=== PATIENT | male | born 1970 | race Caucasian/White ===

== ENCOUNTER → 2019-01-17 16:43 | Outpatient (CLI) | payer OTHER, SELFPAY ==
[2016-12-11 10:56] VITALS: BMI 32.2
[2018-11-22 15:34] VITALS: BMI 34.0
[2019-01-17 17:34] LABS: Absolute Lymphocyte Count 3.01 X10^3/ul (0.83-4.51); Absolute Neutrophil Count 6.3 X10^3/uL (2.0-7.7); Basophil# 0.04 X10^3/uL; Basophil% 0.4 % (0-1); Eosinophil# 0.12 X10^3/uL; Eosinophils% 1.1 % (0-5); Hemoglobin 14.7 g/dl (13.0-16.5); Lymphocyte # 3.01 X10^3/ul (4.0); Lymphocyte % 28.8 % (19-41); Mean Corp Hgb Conc 33.4 g/gl (32-36); Mean Corpuscular Hgb 30.2 pg (27.0-32.0); Mean Corpuscular Volume 90.5 fL (80-94); Mean Platelet Vol. 10.6 fl (6.2-12.0); Monocyte# 0.92 X10^3/uL; Monocyte% 8.8 % (0-10); Neutrophil # 6.33 X10^3/uL (2.7-7.7); Neutrophil % 60.5 % (47-70); Platelet Count 255 K/mm3 (150-450); RBC Distribution Width CV 13.9 % (11.6-14.6); RBC Distribution Width SD 45.6 fl (35.1-43.9); Red Blood Count 4.86 M/mm3 (4.6-6.2); White Blood Count 10.5 K/mm3 (4.4-11.0)
[2019-01-17 17:37] LABS: POSITIVE DIFFERENTIAL NO
[2019-01-17 17:38] LABS: POSITIVE COUNT NO; POSITIVE MORPHOLOGY NO
[2019-01-17 17:46] LABS: Hemoglobin A1c 6.7 % (4.2-6.3)
[2019-01-17 18:15] LABS: Vitamin B12 428 pg/mL (211-911); Vitamin D,25 Hydroxy 9.2 ng/mL (29.95-100.01)
[2019-01-17 20:17] LABS: ALB/GLOB Ratio 1.3 RATIO (0.9-2.4); AST(SGOT) 15 U/L (15-37); Alanine Aminotransfer ALT/SGPT 33 U/L (16-61); Albumin, Serum 4.1 g/dL (3.2-5.0); Alkaline Phosphatase 97 U/L (45-117); Anion Gap 13 (5-15); BUN 21 mg/dL (7-18); Calcium,Total 9.1 mg/dL (8.5-10.1); Chloride 108 mmol/L (98-107); Cholesterol 147 mg/dL (200); Creatinine, Serum 0.84 mg/dL (0.70-1.30); EST Glomerular Filtration Rate 104 mL/min (>60); Est Glom Filt Rate - Afr Amer 126 mL/min (>60); Globulin 3.2 g/dL (2.2-4.2); Glucose 94 mg/dL (74-106); High Density Lipoprotein 37 mg/dL; Protein, Total 7.3 g/dL (6.4-8.2); Sodium Level 146 mmol/L (136-145); Thyroid Stim Hormone (TSH) 2.37 uIU/mL (0.358-3.74); Triglycerides 121 mg/dL; Very Low Density Lipoprotein 24 mg/dL (5-40)
== END ==
PROVIDERS: Family Provider Family Medicine; PCP Family Medicine; Referring Provider Family Medicine; Visit Provider Family Medicine
DX: R53.83 Other fatigue (principal); R35.8 Other polyuria; E78.5 Hyperlipidemia, unspecified
CPT/HCPCS: 36415; 80053; 80061; 82306; 82607; 83036; 84443; 85025

== ENCOUNTER → 2019-02-20 16:47 | Outpatient (CLI) | payer OTHER, SELFPAY ==
[2016-12-11 10:56] VITALS: BMI 32.2
[2019-02-20 16:03] VITALS: BMI 34.0
== END ==
PROVIDERS: Family Provider Family Medicine; PCP Family Medicine; Referring Provider Nurse Practitioner Family; Visit Provider Nurse Practitioner Family
DX: I25.10 Atherosclerotic heart disease of native coronary artery without angina pectoris (principal); R07.9 Chest pain, unspecified; Z72.0 Tobacco use
CPT/HCPCS: 36415; 84484

== ENCOUNTER 2019-02-20 19:03 | Observation (INO) | payer OTHER, SELFPAY ==
[2016-12-11 10:56] VITALS: BMI 32.2
[2019-02-20 16:03] VITALS: BMI 34.0
[2019-02-20 19:03] VITALS: BP 205/115; PULSE 91; RESP 18; TEMP 36.8; O2SAT 95; BMI 35.6
--- NOTE | 2019-02-20 19:29 | EKG12_ITS ---
Test Reason : CP Blood Pressure : / mmHG Vent. Rate : 090 BPM Atrial Rate : 090 BPM P-R Int : 188 ms QRS Dur : 108 ms QT Int : 378 ms P-R-T Axes : 056 -04 032 degrees QTc Int : 462 ms Normal sinus rhythm Possible Left atrial enlargement Cannot rule out Anterior infarct , age undetermined Abnormal ECG Confirmed by BIRGIT EVANGELISTA, GENE ([id number]), editor & co founder EVELIO CURRY ([id number]) on 02/24/2019 11:10:36 AM Referred By: Hesham Canchola Confirmed By:GENE GENAO MD
[2019-02-20 19:30] VITALS: O2SAT 95
--- NOTE | 2019-02-20 19:35 | RAD_ITS ---
STUDY: X-RAY CHEST REASON FOR EXAM: Male, 48 years old. Chest pain. TECHNIQUE: Single frontal view of the chest. COMPARISON: July 03, 2015 FINDINGS: The lungs are clear and expanded. There is no demonstrated pleural abnormality. Normal size heart. Normal mediastinum and soniya. Normal visualized pulmonary arteries. Normal visualized aortic arch and descending thoracic aorta. Normal visualized thoracic spine. Normal visualized ribs, clavicles, and shoulders. There are postsurgical changes of the lower cervical spine. There is no demonstrated abnormality of the visualized soft tissue structures of the upper abdomen. RAD/Chest 1 View (Portable) IMPRESSION: No acute cardiopulmonary process. Electronically Signed: Racquel Combs MD at 20:05 EDT Tel , Service support ,
[2019-02-20 19:47] LABS: Absolute Lymphocyte Count 3.43 X10^3/ul (0.83-4.51); Absolute Neutrophil Count 5.1 X10^3/uL (2.0-7.7); Basophil# 0.04 X10^3/uL; Basophil% 0.4 % (0-1); Eosinophil# 0.22 X10^3/uL; Eosinophils% 2.3 % (0-5); Hematocrit 44.2 % (40-54); Hemoglobin 15.1 g/dl (13.0-16.5); Lymphocyte # 3.43 X10^3/ul (4.0); Lymphocyte % 35.6 % (19-41); Mean Corp Hgb Conc 34.2 g/gl (32-36); Mean Corpuscular Hgb 30.1 pg (27.0-32.0); Mean Platelet Vol. 10.2 fl (6.2-12.0); Monocyte# 0.81 X10^3/uL; Monocyte% 8.4 % (0-10); Neutrophil # 5.11 X10^3/uL (2.7-7.7); POSITIVE COUNT NO; POSITIVE DIFFERENTIAL NO; POSITIVE MORPHOLOGY NO; Platelet Count 235 K/mm3 (150-450); RBC Distribution Width CV 13.3 % (11.6-14.6); RBC Distribution Width SD 42.5 fl (35.1-43.9); Red Blood Count 5.02 M/mm3 (4.6-6.2); White Blood Count 9.6 K/mm3 (4.4-11.0)
[2019-02-20 19:50] LABS: Anion Gap 5 (5-15); BUN 14 mg/dL (7-18); BUN/Creat Ratio 15.3 RATIO (10-20); Calcium,Total 8.8 mg/dL (8.5-10.1); Chloride 104 mmol/L (98-107); Creatinine, Serum 0.92 mg/dL (0.70-1.30); EST Glomerular Filtration Rate 94 mL/min (>60); Est Glom Filt Rate - Afr Amer 114 mL/min (>60); Estimated Creatinine Clearance 96.03 ml/min; Glucose 131 mg/dL (74-106); Potassium 3.3 mmol/L (3.5-5.1); Sodium Level 140 mmol/L (136-145)
[2019-02-20] MEDS: Aspirin 81 MG TAB.CHEW 324 MG PO (19:55)
--- NOTE | 2019-02-20 20:00 | ED.DCSUM_ITS ---
- ER Visit Summary Date of Service: 02/20/19 Chief Complaint: Chest pain History of Present Illness: The patient is a 48 M with chest pain intermittently over 2 months. The patient has a history of coronary disease and follows with Dr. Flores. Symptoms are worse with walking and better with rest. Associated with some shortness of breath but no other symptoms. He is a smoker. Physical Examination: Afebrile. Blood pressure 205/115. Otherwise vitals unremarkable. Heart regular. Lungs clear. Abdomen soft. Skin appears normal. Extremities nontender with no edema. Test Results: EKG showed sinus rhythm at a rate of 90. Laboratory studies and chest x-ray are pending. Emergency Department Course and Treatment: Patient placed on a monitor and treated with aspirin while awaiting results. He will likely need admission. Patient's pressure improved to 177 systolic. His EKG showed sinus rhythm at a rate of 90. Chest x-ray showed no acute process. CBC normal. Potassium 3.3 and glucose 131. Troponin stable over the past 2 and half hours, 0.063. Patient's blood pressure increased again. He was treated with labetalol. He was pain-free. I spoke with the hospitalist to admit for chest pain and hyperte nsion. I also spoke with cardiology, Dr. Rocha. He advised a repeat EKG in the morning. Cycle enzymes tonight. A dose of Lovenox tonight. N.p.o. overnight in case his central supply manager wants to cath him tomorrow. Patient is stable and will be admitted. Treatment Plan: As above Disposition: Admission Impression: 1. Chest pain 2. Hypertension This note was generated with [employer] dictation software. It may contain incorrect words, spelling, and punctuation that were not noted in review of the chart prior to signing ED Disposition - Plan for ED Patient: Referrals: Hesham Lao MD [Primary Care Provider] -
[2019-02-20 20:03] VITALS: BP 177/112; PULSE 86; RESP 18; O2SAT 96
[2019-02-20 21:00] VITALS: BP 203/129; PULSE 74; RESP 22; O2SAT 96
--- NOTE | 2019-02-20 21:38 | HP.PCM_ITS ---
Problem List (1) Chest pain Status: Acute History of Present Illness Date of Admission: 02/20/19 Chief Complaint: CHEST PAIN The patient is a 48 year old M with a significant history of CAD s/p stent in 2017, HTN and tobacco abuse who present to the ED with left-sided chest pain that has been going on for months. The intensity of the chest pain is 3-4 on a scale of 1-10. His chest pain occur 2-3 times per day and last 5-10 minutes. His chest pain is brought on by walking. And it is relieved with rest. He denies any nausea, vomiting or diaphoresis. His chest pain radiates to his left shoulder and arm. Patient went to his physician coder Dr. Flores's office on the same day of presentation. He saw the cardiology nurse practitioner. Because his troponin returned elevated he was called and advised to come to the emergency department. At the emergency department his troponin was 0.063. His EKG showed Q waves in leads V1 to V3, unchanged from previous.. His blood pressure was noted to be severely elevated with systolic blood pressure in the 200s and diastolic in the 110s. Patient received labetalol IV in the emergency department. Learning Operations Specialist was consulted. Per emergency department doctor cardiology wanted patient to have Lovenox therapeutic dose x1; cardiac enzymes to be recycled; EKG in a.m. and patient to be kept n.p.o. and to be seen by Dr. Flores. Past Medical History Past Medical History (Chronic Problems): Chronic Problems (Last Reviewed 02/20/19 @ 22:28 by Brendan Chao MD) Essential hypertension (Chronic) Atherosclerosis of [place] coronary artery of [place] heart without angina pectoris (Chronic) COPD (chronic obstructive pulmonary disease) (Chronic) Tobacco abuse (Chronic) Medical History: Medical History (Last Reviewed 02/20/19 @ 22:28 by Brendan Chao MD) Essential hypertension (Chronic) I10 Atherosclerosis of [place] coronary artery of [place] heart without angina pectoris (Chronic) I25.10 Non-ST elevation ID (NSTEMI) (Resolved) I21.4 COPD (chronic obstructive pulmonary disease) (Chronic) J44.9 Tobacco abuse (Chronic) Z72.0 Allergies amoxicillin trihydrate [From Augmentin] Allergy (Verified 02/20/19 19:07) Rash potassium clavulanate [From Augmentin] Allergy (Verified 02/20/19 19:07) Rash codeine Adverse Reaction (Verified 02/20/19 19:07) Nausea Home Medications: Ambulatory Orders Medication Instructions Recorded Budesonide/Formoterol 80-4.5 2 puff INHALATION BID 12/09/16 [Symbicort 80-4.5 Mcg Inhaler] Aspirin 81 mg PO DAILY #90 tab.chew 12/12/16 clopidogrel 75 mg tablet 75 mg PO DAILY #90 tab 11/22/18 hydrochlorothiazide 25 mg tablet 25 mg PO DAILY #90 tab 11/22/18 valsartan 320 mg tablet 320 mg PO QDAY #90 tab 11/22/18 amlodipine 5 mg tablet 10 mg PO DAILY tab 02/20/19 cholecalciferol (vitamin D3) 50,000 unit PO QWEEK 02/20/19 50,000 unit tablet isosorbide mononitrate ER 30 mg 30 mg PO DAILY #30 tab 02/20/19 tablet,extended release 24 hr metformin 500 mg tablet 500 mg PO BID 02/20/19 metoprolol tartrate 50 mg tablet 100 mg PO BID tab 02/20/19 rosuvastatin 40 mg tablet 40 mg PO DAILY 02/20/19 Surgical History: Surgical History (Last Reviewed 02/20/19 @ 22:27 by Brendan Chao MD) Presence of stent in coronary artery Z95.5 WAN to med second obtuse marginal 2.75 x 14 mm resolute integrity History of appendectomy Z90.49 History of hernia repair Onset Date: ~2008 Z98.890, Z87.19 History of neck surgery Z98.890 X2 fusion History of umbilical hernia repair Onset Date: ~1971 Z98.890, Z87.19 Surgical History: appendectomy, herniorrhaphy, - - Cervical spine fusion surgery. Psychiatric History: No pertinent psych hx Smoking Status: Current every day smoker - *Family History Maternal Family History: Family History (Last Reviewed 02/20/19 @ 22:27 by Brendan Chao MD) Sister Myocardial infarction, Onset Age: 41 Diabetes Mother COPD (chronic obstructive pulmonary disease) Asthma Rheumatoid arthritis Grandmother Diabetes History Items: No pertinent history Paternal Family History: Family History (Last Reviewed 02/20/19 @ 22:27 by Brendan Chao MD) Sister Myocardial infarction, Onset Age: 41 Diabetes Mother COPD (chronic obstructive pulmonary disease) Asthma Rheumatoid arthritis Grandmother Diabetes History Items: Heart Disease, Hypertension Sibling Family History: Family History (Last Reviewed 02/20/19 @ 22:27 by Brendan Chao MD) Sister Myocardial infarction, Onset Age: 41 Diabetes Mother COPD (chronic obstructive pulmonary disease) Asthma Rheumatoid arthritis Grandmother Diabetes History Items: Heart Disease, - - His sister at age of 41 because of heart attack. Review of Systems Constitutional: Denies: Chills, Fever, Weight Change HEENT: Denies: Head Aches, Sinus Congestion, Sinus Drainage Cardiovascular: Reports: Chest Pain. Denies: Palpitations Respiratory: Denies: Cough, Shortness of breath at rest, Sputum production Gastrointestinal: Denies: Abdominal Pain, Nausea, Vomiting Genitourinary: Denies: Dysuria Musculoskeletal: Denies: Joint Pain, Joint Tenderness Skin: Denies: Rash, Wounds Neurological: Denies: Numbness, Tingling, Focal weakness Psychiatric: Denies: Anxiety, Depression, Homicidal Ideations, Suicidal Id eations Hematologic/ Lymphatic: Denies: Easy Bruising, Easy Bleeding VTE Information - Inpt Only VTE Present on Admission: No VTE Mechan Device Prophylaxis: None VTE Pharm Prophylaxis ordered?: No Reason prophylaxis not ordered:: Treatment Not Indicated - Received therapeutic Lovenox for NSTEMI Patient Problems: Active and Suspected Problems (Last Reviewed 02/20/19 @ 22:28 by Brendan Chao MD) Chest pain (Acute) - Physical Exam General: Alert, Oriented x3, Cooperative HEENT: Atraumatic, PERRLA, EOMI, Normocephalic Neck: Supple, No JVD, Negative Carotid Bruits Lungs: Wheezes Cardiovascular: Regular rate, No murmurs Abdomen: Bowel Sounds Present, Soft, Non Tender Extremities: No edema, Capillary Refill Less than 3 Seconds Skin: No rashes, No breakdown Musculoskeletal: No Tenderness to Palpation of Joints or Extremities Neurological: Cranial nerves II-XII grossly intact Psych/Mental Status: Normal Affect, Appropriate Vital Signs Temp Pulse Resp BP Pulse Ox 98.3 F 74 22 H 203/129 H 96 02/20/19 19:03 02/20/19 21:00 02/20/19 21:00 02/20/19 21:00 02/20/19 21:00 Oxygen Flow Rate (L/min) 2 Oxygen Delivery Method Nasal Cannula Weight: 1069.2 kg Body Mass Index (BMI) 358.3 Laboratory Tests Past 24 Hrs 02/20/19 02/20/19 19:33 19:33 WBC 9.6 RBC 5.02 Hgb 15.1 Hct 44.2 MCV 88.0 MCH 30.1 MCHC 34.2 RDW 13.3 RDW Differential 42.5 Plt Count 235 MPV 10.2 Immature Gran % (Auto) 0.300 Neut % (Auto) 53.0 Lymph % (Auto) 35.6 Arroyo % (Auto) 8.4 Eos % (Auto) 2.3 Baso % (Auto) 0.4 Absolute Neuts (auto) 5.1 Absolute Lymphs (auto) 3.43 Total Counted Not Reportable Sodium 140 Potassium 3.3 L Chloride 104 Carbon Dioxide 31.0 Anion Gap 5 BUN 14 Creatinine 0.92 Estim Creat Clear Calc 96.03 Est GFR (MDRD) Af Amer 114 Est GFR (MDRD) Non-Af 94 BUN/Creatinine Ratio 15.3 Glucose 131 H Calcium 8.8 Troponin I 0.063 H Assessment/Plan All Active Problems (Last Reviewed 02/20/19 @ 22:28 by Brendan Chao MD) Chest pain (Acute) Non-ST elevation ID (NSTEMI) (Resolved) Borderline elevated troponin (Resolved) Chest pain (Resolved) The patient is a 48 year old M with a significant history of CAD s/p stents, HTN and tobacco abuse who present to the ED with left-sided chest pain that has been going on for months; also found to have troponin in the intermediate range and severely elevated blood pressure. Chest pain Admit to a monitored bed on PCU CXR independently reviewed confirms no acute cardiopulmonary process. EKG independently reviewed confirms Q waves in lead V1 to V3. Old records reviewed showed Q waves in lead V1 to V3. Reviewed EKG was that of 03 July 2017. ASA 81 mg p.o. daily continued Plavix daily continued SL NTG 0.4 mg prn as needed for chest pain We will check lipid panel. Home Crestor continued Serial cardiac enzymes Stat EKG as needed for chest pain EKG in a.m. We will keep patient n.p.o. for cardiology to see patient. Hold metformin for now. Received therapeutic Lovenox x1 at the emergency department. Hypertensive emergency On admission his blood pressure was severely elevated with systolic blood pressure 9200s and diastolic blood pressure in the 110s. Patient received labetalol IV in the emergency department. Metoprolol continued Amlodipine continued Hold hydrochlorothiazide and hydrate as we wait for cardiology to see patient.. Diabetes mellitus On presentation his blood glucose was within goal. Metformin held as it is too early in his admission. Fingerstick blood sugar QA [facility] with correction scale ordered. Asthma/COPD Symbicort continued Tobacco abuse Counseled Patient refused nicotine patch. DVT prophylaxis Received therapeutic dose of Lovenox x1 at the emergency department for probable NSTEMI Code Visit OBSV E&M: [id number] Initial observation care L3
[2019-02-20 22:46] VITALS: BMI 33.7
[2019-02-20 23:03] VITALS: PULSE 71
--- NOTE | 2019-02-20 23:29 | EKG12_ITS ---
Test Reason : CP ADMIT Blood Pressure : / mmHG Vent. Rate : 068 BPM Atrial Rate : 068 BPM P-R Int : 180 ms QRS Dur : 112 ms QT Int : 416 ms P-R-T Axes : 052 007 015 degrees QTc Int : 442 ms Normal sinus rhythm Normal ECG When compared with ECG of 20-FEB-2019 19:07, MANUAL COMPARISON REQUIRED, DATA IS UNCONFIRMED Confirmed by BIRGIT EVANGELISTA, GENE ([id number]), greeting card editor EVELIO CURRY ([id number]) on 02/25/2019 8:16:16 AM Referred By: Hesham Canchola Confirmed By:GENE GENAO MD
[2019-02-20 23:30] VITALS: BP 168/62; PULSE 73; RESP 18; TEMP 37.1; O2SAT 100
[2019-02-20] MEDS: 0.9% Normal Saline 1,000 ML 100 ML IV (23:30)
[2019-02-21] VITALS (39 sets, daily range): BP systolic 137–252; BP diastolic 74–126; PULSE 63–102; RESP 15–27; TEMP 36.5–36.9; O2SAT 91–97; BMI 33.7
[2019-02-21 02:58] LABS: Prothrombin Time (Protime)PT. 12.7 SECONDS (11.7-14.9)
[2019-02-21 03:17] LABS: Cholesterol 123 mg/dL (200); High Density Lipoprotein 32 mg/dL; Triglycerides 118 mg/dL; Very Low Density Lipoprotein 24 mg/dL (5-40)
--- NOTE | 2019-02-21 06:00 | EKG12_ITS ---
Test Reason : AM EKG Blood Pressure : / mmHG Vent. Rate : 077 BPM Atrial Rate : 077 BPM P-R Int : 182 ms QRS Dur : 102 ms QT Int : 392 ms P-R-T Axes : 065 019 019 degrees QTc Int : 443 ms Normal sinus rhythm Septal infarct , age undetermined Abnormal ECG When compared with ECG of 20-FEB-2019 23:52, MANUAL COMPARISON REQUIRED, DATA IS UNCONFIRMED Confirmed by BIRGIT EVANGELISTA, GENE ([id number]), television news video editor EVELIO CURRY ([id number]) on 02/25/2019 8:14:43 AM Referred By: Confirmed By:GENE GENAO MD
--- NOTE | 2019-02-21 07:19 | PCM.CONS.C ---
Problem List (1) Non-ST elevation DE (NSTEMI) Status: Resolved (2) CAD (coronary artery disease) Status: Chronic Qualifiers: Coronary Disease-Associated Artery/Lesion type: [place] artery [place] vs. transplanted heart: [place] heart (3) S/P PTCA (percutaneous transluminal coronary angioplasty) Status: Chronic (4) Essential hypertension Status: Chronic (5) HLD (hyperlipidemia) Status: Chronic (6) COPD (chronic obstructive pulmonary disease) Status: Chronic Reason for Consult Date of Consultation: 02/21/19 History of Present Illness: The patient is a 48 year old white male with a past medical history of underlying CAD status post previous PTCA/WAN to the LCx/OM 2 system who was referred for evaluation of worsening/accelerating chest discomfort and abnormal troponin I levels. He has noted that over the last 2 months he has had worsening chest discomfort, this is more so with exertion and at rest, as he describes a chest cramping sensation as well as an element of shortness of breath/dyspnea relieved with rest. He notes it has happened intermittently at rest in the evenings. He has not had any obvious orthopnea or PND or worsening peripheral pitting edema. There is been no near syncope or syncope. Based upon his ongoing symptoms he was evaluated in the outpatient setting yesterday. He was asked to have laboratory studies including troponin I levels as well as being considered for an upcoming exercise tolerance test/imaging study. However his troponin I levels were returned as abnormal. Thus he was directed to present himself to the emergency department for further evaluation. He was evaluated and found to have continued evidence of abnormal troponin I levels. He has ECG was noted to have sinus rhythm with a septal DE pattern of indeterminate age which cannot be excluded. He was placed in the hospital with additional medical management. He has had a history of hypertension. He notes his blood pressure has always been challenging to control. States this has been despite medical management. It has been noted to be markedly elevated since his arrival at the hospital. [] Past Medical History Allergies/Adverse Reactions: Allergies amoxicillin trihydrate [From Augmentin] Allergy (Verified 02/20/19 19:07) Rash potassium clavulanate [From Augmentin] Allergy (Verified 02/20/19 19:07) Rash codeine Adverse Reaction (Verified 02/20/19 19:07) Nausea Home Medications: Ambulatory Orders Medication Instructions Recorded Budesonide/Formoterol 80-4.5 2 puff INHALATION BID 12/09/16 [Symbicort 80-4.5 Mcg Inhaler] Aspirin 81 mg PO DAILY #90 tab.chew 12/12/16 clopidogrel 75 mg tablet 75 mg PO DAILY #90 tab 11/22/18 hydrochlorothiazide 25 mg tablet 25 mg PO DAILY #90 tab 11/22/18 valsartan 320 mg tablet 320 mg PO QDAY #90 tab 11/22/18 amlodipine 5 mg tablet 10 mg PO DAILY tab 02/20/19 cholecalciferol (vitamin D3) 50,000 unit PO QWEEK 02/20/19 50,000 unit tablet isosorbide mononitrate ER 30 mg 30 mg PO DAILY #30 tab 02/20/19 tablet,extended release 24 hr metformin 500 mg tablet 500 mg PO BID 02/20/19 metoprolol tartrate 50 mg tablet 100 mg PO BID tab 02/20/19 rosuvastatin 40 mg tablet 40 mg PO DAILY 02/20/19 Past Medical History (Chronic Problems): Chronic Problems (Last Reviewed 02/20/19 @ 22:28 by Brendan Chao MD) CAD (coronary artery disease) (Chronic) S/P PTCA (percutaneous transluminal coronary angioplasty) (Chronic) HLD (hyperlipidemia) (Chronic) Essential hypertension (Chronic) Atherosclerosis of [place] coronary artery of [place] heart without angina pectoris (Chronic) COPD (chronic obstructive pulmonary disease) (Chronic) Tobacco abuse (Chronic) Surgical History: appendectomy, herniorrhaphy, - - Cervical spine fusion surgery. Psychiatric History: No pertinent psych hx - *Family History Maternal Family History: Family History (Last Reviewed 02/20/19 @ 22:27 by Brendan Chao MD) Sister Myocardial infarction, Onset Age: 41 Diabetes Mother COPD (chronic obstructive pulmonary disease) Asthma Rheumatoid arthritis Grandmother Diabetes History Items: No pertinent history Paternal Family History: Family History (Last Reviewed 02/20/19 @ 22:27 by Brendan Chao MD) Sister Myocardial infarction, Onset Age: 41 Diabetes Mother COPD (chronic obstructive pulmonary disease) Asthma Rheumatoid arthritis Grandmother Diabetes History Items: Heart Disease, Hypertension Sibling Family History: Family History (Last Reviewed 02/20/19 @ 22:27 by Brendan Chao MD) Sister Myocardial infarction, Onset Age: 41 Diabetes Mother COPD (chronic obstructive pulmonary disease) Asthma Rheumatoid arthritis Grandmother Diabetes History Items: Heart Disease, - - His sister at age of 41 because of heart attack. Smoking Status: Current every day smoker Review of Systems - Review of Systems General: Denies: Fever, Night Sweats, Fatigue Cardiovascular: Reports: Chest Discomfort, Shortness of Breath. Denies: Orthopnea, PND, Peripheral Edema, Palpitations, Lightheadedness, Dizziness, Near Syncope, Syncope Respiratory: Reports: Wheezing. Denies: Cough, Sputum Production, Hemoptysis Gastrointestinal: Denies: Hematemesis, Hematochezia, Melena Genitourinary: Denies: Dysuria, Hematuria Skin: Denies: Rash Subjectve: This is a 48-year-old white male who appears to be resting comfortably at the moment in no acute distress. Objective: Vital Signs Temp Pulse Resp BP Pulse Ox 98.3 F 73 20 H 159/98 H 96 02/21/19 03:45 02/21/19 04:00 02/21/19 03:45 02/21/19 03:45 02/21/19 03:45 Oxygen Flow Rate (L/min) 2 Oxygen Delivery Method Room Air Weight: 221 lb 12.56 oz Body Mass Index (BMI) 33.7 Intake and Output for Last 24 Hours 02/19/19 02/20/19 02/21/19 23:59 23:59 23:59 Intake Total 577 / 577 Balance 577 / 577 General: Awake, Alert, Oriented x 3, Cooperative, No Acute Distress HEENT: Atraumatic, Normocephalic, PERRL, EOMI, Sclera Non Icteric Oral: Moist Mucosa Neck: Supple, Good ROM, No JVD Lungs: Inspiratory Wheezes - Jc Cardiovascular: Regular Rhythm, Normal S1, Normal S2 Vascular: No Carotid Bruits Abdomen: Bowel Sounds Present, Soft, Non Tender Extremities: No Cyanosis, No Clubbing, No edema Neurological: No Focal Motor or Sensory Deficit Psych/Mental Status: Appropriate 02/20/19 19:33: WBC 9.6, RBC 5.02, Hgb 15.1, Hct 44.2, MCV 88.0, MCH 30.1, MCHC 34.2, RDW 13.3, RDW Differential 42.5, Plt Count 235, MPV 10.2, Immature Gran % (Auto) 0.300, Neut % (Auto) 53.0, Lymph % (Auto) 35.6, [place] % (Auto) 8.4, Eos % (Auto) 2.3, Baso % (Auto) 0.4, Absolute Neuts (auto) 5.1, Total Counted Not Reportable 02/20/19 19:33: Sodium 140, Potassium 3.3 L, Chloride 104, Carbon Dioxide 31.0, Anion Gap 5, BUN 14, Creatinine 0.92, Est GFR (MDRD) Af Amer 114, Est GFR (MDRD) Non-Af 94, BUN/Creatinine Ratio 15.3, Glucose 131 H, Calcium 8.8, Troponin I 0.063 H 02/20/19 23:10: Troponin I 0.064 H 02/21/19 02:30: PT 12.7, INR 1.0 02/21/19 02:30: Triglycerides 118, Cholesterol 123, LDL Cholesterol 67, VLDL Cholesterol 24, HDL Cholesterol 32 L 02/21/19 02:30: Troponin I 0.064 H Rhythm: Sinus rhythm EKG: As noted above Cardiac Cath: 12/11/2016: Left main coronary artery with no significant stenosis reported; LAD with no high-grade stenosis reported; LCx with the second OM with a 95% stenosis; RCA being a large dominant vessel with no significant stenosis reported PCI: 12/11/2016: PTCA/WAN with a 2.75 x 14 mm resolute integrity drug-eluting stent to the LCx/second OM system CXR: Preliminary evaluation: No acute cardiopulmonary disease appreciated Assessment/Plan 1. Non-segment elevation DE The patient presents with symptoms, which are accelerating, concerning for angina pectoris and indeterminate troponin I levels. The above is concerning for a NSTEMI. The patient is being monitored. He is continue medical therapy. It has been recommended the patient be considered for reevaluation with diagnostic cardiac catheterization. The procedure and risks have been discussed with the patient. He is agreeable to this approach. 2. CAD status post LCx/OM 2 PCI/WAN The patient again presents with accelerating symptoms and abnormal troponin I levels. There is concern of his underlying CAD status. Thus she will continue medical management and be considered for repeat evaluation in the cardiac catheterization laboratory. 3. Hypertension The patient's blood pressure is markedly elevated. He states that it has been challenging to control. It is unclear as to whether or not this is contributing to his symptoms and his troponin I levels. If his cardiac catheterization does not demonstrate any progressive CAD or in-stent restenosis then this may be the etiology for his symptoms and troponin I levels. The patient will need to continue medical adjustment attempt to bring his blood pressure under better control. 4. Hyperlipidemia The patient will continue lipid-lowering therapy. 5. COPD The patient does have a history of COPD. He does have bilateral respiratory wheezing. He states this is not new for him. Comment: The patient's case was discussed and reviewed with patient in the [facility] emergency department staff. This note was generated using a voice recognition system and there may be incorrect words, spelling or punctuation that were not noted when reviewing the office note prior to saving.
--- NOTE | 2019-02-21 07:23 | CON.PCM_ITS ---
Problem List (1) Non-ST elevation PR (NSTEMI) Status: Resolved (2) CAD (coronary artery disease) Status: Chronic Qualifiers: Coronary Disease-Associated Artery/Lesion type: hoopa artery [place] vs. transplanted heart: hoopa heart (3) S/P PTCA (percutaneous transluminal coronary angioplasty) Status: Chronic (4) Essential hypertension Status: Chronic (5) HLD (hyperlipidemia) Status: Chronic (6) COPD (chronic obstructive pulmonary disease) Status: Chronic Reason for Consult Date of Consultation: 02/21/19 History of Present Illness: The patient is a 48 year old white male with a past medical history of underlying CAD status post previous PTCA/WAN to the LCx/OM 2 system who was referred for evaluation of worsening/accelerating chest discomfort and abnormal troponin I levels. He has noted that over the last 2 months he has had worsening chest discomfort, this is more so with exertion and at rest, as he describes a chest cramping sensation as well as an element of shortness of breath/dyspnea relieved with rest. He notes it has happened intermittently at rest in the evenings. He has not had any obvious orthopnea or PND or worsening peripheral pitting edema. There is been no near syncope or syncope. Based upon his ongoing symptoms he was evaluated in the outpatient setting yesterday. He was asked to have laboratory studies including troponin I levels as well as being considered for an upcoming exercise tolerance test/imaging study. However his troponin I levels were returned as abnormal. Thus he was directed to present himself to the emergency department for further evaluation. He was evaluated and found to have continued evidence of abnormal troponin I levels. He has ECG was noted to have sinus rhythm with a septal PR pattern of indeterminate age which cannot be excluded. He was placed in the hospital with additional medical management. He has had a history of hypertension. He notes his blood pressure has always been challenging to control. States this has been despite medical management. It has been noted to be markedly elevated since his arrival at the hospital. [] Past Medical History Allergies/Adverse Reactions: Allergies amoxicillin trihydrate [From Augmentin] Allergy (Verified 02/20/19 19:07) Rash potassium clavulanate [From Augmentin] Allergy (Verified 02/20/19 19:07) Rash codeine Adverse Reaction (Verified 02/20/19 19:07) Nausea Home Medications: Ambulatory Orders Medication Instructions Recorded Budesonide/Formoterol 80-4.5 2 puff INHALATION BID 12/09/16 [Symbicort 80-4.5 Mcg Inhaler] Aspirin 81 mg PO DAILY #90 tab.chew 12/12/16 clopidogrel 75 mg tablet 75 mg PO DAILY #90 tab 11/22/18 hydrochlorothiazide 25 mg tablet 25 mg PO DAILY #90 tab 11/22/18 valsartan 320 mg tablet 320 mg PO QDAY #90 tab 11/22/18 amlodipine 5 mg tablet 10 mg PO DAILY tab 02/20/19 cholecalciferol (vitamin D3) 50,000 unit PO QWEEK 02/20/19 50,000 unit tablet isosorbide mononitrate ER 30 mg 30 mg PO DAILY #30 tab 02/20/19 tablet,extended release 24 hr metformin 500 mg tablet 500 mg PO BID 02/20/19 metoprolol tartrate 50 mg tablet 100 mg PO BID tab 02/20/19 rosuvastatin 40 mg tablet 40 mg PO DAILY 02/20/19 Past Medical History (Chronic Problems): Chronic Problems (Last Reviewed 02/20/19 @ 22:28 by Brendan Chao MD) CAD (coronary artery disease) (Chronic) S/P PTCA (percutaneous transluminal coronary angioplasty) (Chronic) HLD (hyperlipidemia) (Chronic) Essential hypertension (Chronic) Atherosclerosis of hoopa coronary artery of hoopa heart without angina pectoris (Chronic) COPD (chronic obstructive pulmonary disease) (Chronic) Tobacco abuse (Chronic) Surgical History: appendectomy, herniorrhaphy, - - Cervical spine fusion surgery. Psychiatric History: No pertinent psych hx - *Family History Maternal Family History: Family History (Last Reviewed 02/20/19 @ 22:27 by Brendan Chao MD) Sister Myocardial infarction, Onset Age: 41 Diabetes Mother COPD (chronic obstructive pulmonary disease) Asthma Rheumatoid arthritis Grandmother Diabetes History Items: No pertinent history Paternal Family History: Family History (Last Reviewed 02/20/19 @ 22:27 by Brendan Chao MD) Sister Myocardial infarction, Onset Age: 41 Diabetes Mother COPD (chronic obstructive pulmonary disease) Asthma Rheumatoid arthritis Grandmother Diabetes History Items: Heart Disease, Hypertension Sibling Family History: Family History (Last Reviewed 02/20/19 @ 22:27 by Brendan Chao MD) Sister Myocardial infarction, Onset Age: 41 Diabetes Mother COPD (chronic obstructive pulmonary disease) Asthma Rheumatoid arthritis Grandmother Diabetes History Items: Heart Disease, - - His sister at age of 41 because of heart attack. Smoking Status: Current every day smoker Review of Systems - Review of Systems General: Denies: Fever, Night Sweats, Fatigue Cardiovascular: Reports: Chest Discomfort, Shortness of Breath. Denies: Orthopnea, PND, Peripheral Edema, Palpitations, Lightheadedness, Dizziness, Near Syncope, Syncope Respiratory: Reports: Wheezing. Denies: Cough, Sputum Production, Hemoptysis Gastrointestinal: Denies: Hematemesis, Hematochezia, Melena Genitourinary: Denies: Dysuria, Hematuria Skin: Denies: Rash Subjectve: This is a 48-year-old white male who appears to be resting comfortably at the moment in no acute distress. Objective: Vital Signs Temp Pulse Resp BP Pulse Ox 98.3 F 73 20 H 159/98 H 96 02/21/19 03:45 02/21/19 04:00 02/21/19 03:45 02/21/19 03:45 02/21/19 03:45 Oxygen Flow Rate (L/min) 2 Oxygen Delivery Method Room Air Weight: 221 lb 12.56 oz Body Mass Index (BMI) 33.7 Intake and Output for Last 24 Hours 02/19/19 02/20/19 02/21/19 23:59 23:59 23:59 Intake Total 577 / 577 Balance 577 / 577 General: Awake, Alert, Oriented x 3, Cooperative, No Acute Distress HEENT: Atraumatic, Normocephalic, PERRL, EOMI, Sclera Non Icteric Oral: Moist Mucosa Neck: Supple, Good ROM, No JVD Lungs: Inspiratory Wheezes - Cj Cardiovascular: Regular Rhythm, Normal S1, Normal S2 Vascular: No Carotid Bruits Abdomen: Bowel Sounds Present, Soft, Non Tender Extremities: No Cyanosis, No Clubbing, No edema Neurological: No Focal Motor or Sensory Deficit Psych/Mental Status: Appropriate 02/20/19 19:33: WBC 9.6, RBC 5.02, Hgb 15.1, Hct 44.2, MCV 88.0, MCH 30.1, MCHC 34.2, RDW 13.3, RDW Differential 42.5, Plt Count 235, MPV 10.2, Immature Gran % (Auto) 0.300, Neut % (Auto) 53.0, Lymph % (Auto) 35.6, [place] % (Auto) 8.4, Eos % (Auto) 2.3, Baso % (Auto) 0.4, Absolute Neuts (auto) 5.1, Total Counted Not Reportable 02/20/19 19:33: Sodium 140, Potassium 3.3 L, Chloride 104, Carbon Dioxide 31.0, Anion Gap 5, BUN 14, Creatinine 0.92, Est GFR (MDRD) Af Amer 114, Est GFR (MDRD) Non-Af 94, BUN/Creatinine Ratio 15.3, Glucose 131 H, Calcium 8.8, Troponin I 0.063 H 02/20/19 23:10: Troponin I 0.064 H 02/21/19 02:30: PT 12.7, INR 1.0 02/21/19 02:30: Triglycerides 118, Cholesterol 123, LDL Cholesterol 67, VLDL Cholesterol 24, HDL Cholesterol 32 L 02/21/19 02:30: Troponin I 0.064 H Rhythm: Sinus rhythm EKG: As noted above Cardiac Cath: 12/11/2016: Left main coronary artery with no significant stenosis reported; LAD with no high-grade stenosis reported; LCx with the second OM with a 95% stenosis; RCA being a large dominant vessel with no significant stenosis reported PCI: 12/11/2016: PTCA/WAN with a 2.75 x 14 mm resolute integrity drug-eluting stent to the LCx/second OM system CXR: Preliminary evaluation: No acute cardiopulmonary disease appreciated Assessment/Plan 1. Non-segment elevation PR The patient presents with symptoms, which are accelerating, concerning for angina pectoris and indeterminate troponin I levels. The above is concerning for a NSTEMI. The patient is being monitored. He is continue medical therapy. It has been recommended the patient be considered for reevaluation with diagnostic cardiac catheterization. The procedure and risks have been discussed with the patient. He is agreeable to this approach. 2. CAD status post LCx/OM 2 PCI/WAN The patient again presents with accelerating symptoms and abnormal troponin I levels. There is concern of his underlying CAD status. Thus she will continue medical management and be considered for repeat evaluation in the cardiac catheterization laboratory. 3. Hypertension The patient's blood pressure is markedly elevated. He states that it has been challenging to control. It is unclear as to whether or not this is contributing to his symptoms and his troponin I levels. If his cardiac catheterization does not demonstrate any progressive CAD or in-stent restenosis then this may be the etiology for his symptoms and troponin I levels. The patient will need to continue medical adjustment attempt to bring his blood pressure under better control. 4. Hyperlipidemia The patient will continue lipid-lowering therapy. 5. COPD The patient does have a history of COPD. He does have bilateral respiratory wheezing. He states this is not new for him. Comment: The patient's case was discussed and reviewed with patient in the [facility] emergency department staff. This note was generated using a voice recognition system and there may be incorrect words, spelling or punctuation that were not noted when reviewing the office note prior to saving.
[2019-02-21] MEDS: Metoprolol Tartrate 100 MG Tablet PO ×2 (07:59→21:40)
[2019-02-21] MEDS: Clopidogrel Bisulfate 75 MG Tablet PO (08:00)
[2019-02-21] MEDS: amLODIPine 10 MG Tablet PO (08:00)
[2019-02-21] MEDS: Isosorbide Mononitrate 30 MG Tablet PO (08:00)
[2019-02-21] MEDS: Aspirin 81 MG TAB.CHEW PO (08:00)
[2019-02-21] MEDS: Lisinopril 10 MG Tablet PO ×2 (08:00→15:52)
--- NOTE | 2019-02-21 09:00 | CASEMGMT ---
According to the MMO website, the following are in-network tertiary facilities: [facility], [facility], [facility], [facility], [facility], [facility], [facility], [facility], and . Mary LAWS CM
--- NOTE | 2019-02-21 09:35 | PCM.PN.BLA ---
Progress Note Cardiac catheterization today demonstrated the following: Normal left main coronary artery. Left anterior descending artery with proximal eccentric 95% stenosis. Left circumflex artery previously stented noted to be patent with mild disease. Dominant right coronary artery with mild diffuse disease. Borderline ejection fraction with mild anterior hypokinesis. Based on the above angiographic findings the patient will be referred for angioplasty and stenting of the left anterior descending artery.
--- NOTE | 2019-02-21 10:49 | CL.I_ITS ---
Patient Name: LATONYA ELDER Study Date: 02/21/2019 Performing: Luis Villeda MD Ht: 68 inches 173 cm : 1970 Wt: 223 lbs 101 kg Age: 48 Gender: male BSA: 2.14 PROCEDURE(S) PERFORMED [id number] W OR WO PTCA, SINGLE CORONARY ARTERY [id number] W OR WO PTCA, EACH ADD'L ARTERY, SAME MAJOR CLINICAL PROFILE AND CO-MORBIDITIES Indications: Worsening Angina Heart Failure: None Stress/Imaging Stress/Image Study Performed: No Angina Classification Anginal Classification w/in 2 Weeks: CCS III CAD Presentations: Unstable angina. Unstable angina. CONCLUSIONS Successful PTCA/WAN Mid D1 using Reolute Integrity 2.5x18 mm Successful PTCA/WAN Prox LAD using Resolute Integrity 3.0x15 mm, post-dilated using 3.25 mm balloon RECOMMENDATIONS ASA Indefinitley Plavix for at least 12 months DESCRIPTION OF PROCEDURE The patient arrived to the procedure lab. The risks and benefits of the procedure as well as a full d escription of our services here and current unavailability of surgical backup were fully explained to the patient and/or their significant other prior to the catheterization. The Timeout was completed, verifying the correct patient and procedure. The patient's procedural site was prepped and draped in the usual fashion. Local anesthetic was given subcutaneously to right radial region with Lidocaine 2% Using a modified Seldinger technique,arterial access was obtained via the right radial artery, a 6Fr sheath was inserted. Right Coronary Artery selective angiography was then performed in multiple view s using a 5 Fr. 4.0 Ault catheter. Left Coronary Artery selective angiography was performed in multi ple views using a 5 Fr. 4.0 Ault catheter. Left Ventriculography was performed in SANTOS projection usi ng a 5 Fr. Pigtail catheter. LV to AO pullback pressures were then recorded.The images were reviewed and options discussed. A decision was then made to proceed with an Intervention, IVUS o r other adjunct procedure. XB 3.0 Guide catheter was inserted and engaged into the LCA. RUNTHROUGH Guide wire was advanced t o the LAD. 2.5 X 12 EMERGE Balloon catheter was inserted. Balloon catheter was advanced across lesion in the first diagonal, mid. PTCA balloon inflated at 6 atms for 10 secs. Balloon catheter was reposi tioned to additional lesion in the LAD, proximal. PTCA balloon inflated at 10 atms for 13 secs. 2.5 X 18 RESOLUTE Drug Eluting stent was inserted. Drug Eluting stent was removed intact, failed to cross lesion 3.0 X 15 RESOLUTE Drug Eluting stent was inserted. Drug Eluting stent was advanced across the lesion in the LAD, proximal. Angiogram performed post stent deployment. 3.25 X 15 NC EMERGE Balloon c atheter was inserted. Balloon catheter was inserted post stent. Angiogram performed pre balloon dilat ation. 2.5 X 18 RESOLUTE Drug Eluting stent was inserted. Drug Eluting stent was advanced across the lesion in the first diagonal, mid. Angiogram performed post stent deployment. 2.5 X 15 NC EMERGE Balloon catheter was inserted. Balloon catheter was inserted post stent. Angiogram performed p ost balloon dilatation. The arterial sheath was pulled and a TR Band was applied for hemostasis 15 cc air INTERVENTION INFORMATION LESION SITE: 1st Diagonal (Mid) Lesion Complexity: Non-High/Non-C, culprit lesion: No Pre Stenosis: 95 % Pre intervention ESTEPHANIA flow: 2 PROCEDURE: Drug Eluting Stent with pre and post dilatation Post Stenosis: 0 % Post intervention ESTEPHANIA flow: 3 Lesion Devices: Cordis 6 Fr XB3.0 100cm Guide Catheter Terumo .014 Runthrough Extra Floppy 180cm straight Reji Sci EMERGE MR 2.50x12 BALLOON Medtronic Resolute RX WAN 2.5x18 Reji Sci NC EMERGE MR 2.50x15 BALLOON LESION SITE: LAD (Proximal) Lesion Complexity: Non-High/Non-C, culprit lesion: Yes Pre Stenosis: 99 % Pre intervention ESTEPHANIA flow: 2 PROCEDURE: Drug Eluting Stent with pre and post dilatation Post Stenosis: 0 % Post intervention ESTEPHANIA flow: 3 Lesion Devices: Cordis 6 Fr XB3.0 100cm Guide Catheter Terumo .014 Runthrough Extra Floppy 180cm straight Reji Sci EMERGE MR 2.50x12 BALLOON Medtronic Resolute RX WAN 3.0x15 Reji Sci NC EMERGE MR 3.25x15 BALLOON COMPLICATIONS No Complications PROCEDURE MEDICATIONS Fentanyl 50 mcg IV Versed 1 mg IV Versed 1 mg IV Versed 1 mg IV Oxygen: 2 L/min via nasal cannula Heparin diluted in 23cc Heparinized saline. Patient given 10cc IA of this solution. 02/21/2019 09:18:3 5 Heparin 8000 unit(s) IV 02/21/2019 09:42:12 Heparin 2000 unit(s) IV 02/21/2019 09:50:24 Heparin 2000 unit(s) IV 02/21/2019 10:12:09 Heparin 1000 unit(s) IV 02/21/2019 10:40:01 Nitro 200 mcg IC 02/21/2019 10:25:09 Plavix 300 mg PO 02/21/2019 10:39:54 Verapamil 2.5mg, Ntg 100mcgs, 2000 units of Heparin diluted in 23cc Heparinized saline. Patient give n 10cc IA of this solution. 02/21/2019 09:18:35 IV Bolus: .9 NaCl 250 ml total 02/21/2019 10:09:32 IV Fluids: .9 NaCl decreased to 100 ml/hr 02/21/2019 10:09:41 SUMMARY OF HEMODYNAMIC DATA Time AIR REST ECG 08:57:23 AO 135/92 (111) SA 09:20:50 LV 158/0, 15 09:30:54 LV 150/0, 14 09:31:02 LV 142/5, 18 09:32:45 LVp 144/3, 15 09:32:47 AOp 151/89 (114) 09:32:52 AO 158/94 (117) 09:46:04 Signed By Luis Villeda MD On 03/12/2019 10:31:36 Luis Villeda MD
--- NOTE | 2019-02-21 10:53 | EKG12_ITS ---
Test Reason : AM EKG Blood Pressure : / mmHG Vent. Rate : 085 BPM Atrial Rate : 085 BPM P-R Int : 172 ms QRS Dur : 110 ms QT Int : 368 ms P-R-T Axes : 063 045 -29 degrees QTc Int : 437 ms Normal sinus rhythm T wave abnormality, consider inferior ischemia Abnormal ECG When compared with ECG of 21-FEB-2019 21:17, MANUAL COMPARISON REQUIRED, DATA IS UNCONFIRMED Confirmed by BIRGIT EVANGELISTA, GENE ([id number]), editorial director EVELIO CURRY ([id number]) on 02/25/2019 8:24:50 AM Referred By: Hesham Canchola Confirmed By:GENE GENAO MD
[2019-02-21] MEDS: 0.9% Normal Saline 1,000 ML 100 ML IV (11:00)
--- NOTE | 2019-02-21 11:29 | CRPHASE1 ---
Patient Communication PHII Cardiac Rehab Discussed with Patient:: Yes Guide to Cardiac Rehab Given to Patient:: Yes Cardiac Rehab Facility Choice List Given to Patient:: Yes Choice Program [facility] CR PHII:: Communication Given to CR Refer Phase II Cardiac Rehab:: No - pending Risk Factors/Lifestyle Hx Obesity: Yes Height: 1.73 m Weight:: 100.584 kg BMI: 33.7 Family History: Family History (Last Reviewed 02/20/19 @ 22:27 by Brendan Chao MD) Sister Myocardial infarction, Onset Age: 41 Diabetes Mother COPD (chronic obstructive pulmonary disease) Asthma Rheumatoid arthritis Grandmother Diabetes Laboratory Values: Cardiac Rehab Phase I Labs Triglycerides 118 mg/dL (-199) 02/21/19 02:30 Cholesterol 123 mg/dL (200) 02/21/19 02:30 LDL Cholesterol 67 mg/dL (0-130) 02/21/19 02:30 HDL Cholesterol 32 mg/dL (40-) L 02/21/19 02:30 Phase I Education Given On:: [place], Nutrition, Antiplatelet medication, CHF, Smoking cessation, Diabetes - Type I, Diabetes - Type II Knowledge of Condition:: Yes Hospital Course Presenting Symptoms:: CP Cardiac Cath Date:: 02/21/19 Medical/Surgical History Angina:: Yes COPD:: Yes Hypertension:: Yes PTCA:: Yes Cardiac Rehabilitation Info Cardiac Rehabilitation Program Information: Cardiac Rehabilitation is important for patients like you who are recovering from a heart problem. Cardiac rehabilitation programs are recognized as integral to the continued care of the patient with coronary heart disease. The cardiac rehabilitation program is designed to optimize a patient's physical, psychological, and social functioning. Health grounds caretaker work in cardiac rehabilitation programs and assist you with getting the treatments you need to get stronger and healthier - like exercise, healthy eating habits, and medications. Cardiac rehabilitation has been show to help people with heart problems live longer and have better life enjoyment than people who do not go to cardiac rehabilitation. Please contact the Cardiac Rehabilitation Program at [facility] at in two weeks if you have not heard from them.
--- NOTE | 2019-02-21 11:33 | CRPHASE1_ITS ---
Addendum entered and electronically signed by Angel Mcfadden CRT, COORDINATING PRODUCER, BS 02/25/19 14:55: Please note; this patient has been referred to [facility] CR Phase II prior to discharge following recent PCI intervention w/coronary stent per Dr. Eric Flores on 02/21/2019. Please refer to [facility] for Discharge Summary. Original Note: Patient Communication PHII Cardiac Rehab Discussed with Patient:: Yes Guide to Cardiac Rehab Given to Patient:: Yes Cardiac Rehab Facility Choice List Given to Patient:: Yes Choice Program [facility] CR PHII:: Communication Given to CR Refer Phase II Cardiac Rehab:: No - pending Risk Factors/Lifestyle Hx Obesity: Yes Height: 1.73 m Weight:: 100.584 kg BMI: 33.7 Family History: Family History (Last Reviewed 02/20/19 @ 22:27 by Brendan Chao MD) Sister Myocardial infarction, Onset Age: 41 Diabetes Mother COPD (chronic obstructive pulmonary disease) Asthma Rheumatoid arthritis Grandmother Diabetes Laboratory Values: Cardiac Rehab Phase I Labs Triglycerides 118 mg/dL (-199) 02/21/19 02:30 Cholesterol 123 mg/dL (200) 02/21/19 02:30 LDL Cholesterol 67 mg/dL (0-130) 02/21/19 02:30 HDL Cholesterol 32 mg/dL (40-) L 02/21/19 02:30 Phase I Education Given On:: [place], Nutrition, Antiplatelet medication, CHF, Smoking cessation, Diabetes - Type I, Diabetes - Type II Knowledge of Condition:: Yes Hospital Course Presenting Symptoms:: CP Cardiac Cath Date:: 02/21/19 Medical/Surgical History Angina:: Yes COPD:: Yes Hypertension:: Yes PTCA:: Yes Cardiac Rehabilitation Info Cardiac Rehabilitation Program Information: Cardiac Rehabilitation is important for patients like you who are recovering from a heart problem. Cardiac rehabilitation programs are recognized as integral to the continued care of the patient with coronary heart disease. The cardiac rehabilitation program is designed to optimize a patient's physical, psychological, and social functioning. Health managed care analyst work in cardiac rehabilitation programs and assist you with getting the treatments you need to get stronger and healthier - like exercise, healthy eating habits, and medications. Cardiac rehabilitation has been show to help people with heart problems live longer and have better life enjoyment than people who do not go to cardiac rehabilitation. Please contact the Cardiac Rehabilitation Program at [facility] at in two weeks if you have not heard from them.
--- NOTE | 2019-02-21 11:35 | CRPH1.INST_ITS ---
General Education CAD and cardiac anatomy and function:: Patient communicates acknowledgment Explanation of diagnoses and procedures:: Patient communicates acknowledgment Sign/Symptoms of WA:: Patient communicates acknowledgment Antiplatelet therapy: Patient communicates acknowledgment Proper use of NTG-SL: Not instructed Emergency procedures and activation of EMS: Patient communicates acknowledgment Compliance of all prescribed medications: Patient communicates acknowledgment Smoking Patient Nicotine/Smoking Risk Factors Are:: Cigarettes Recommendations Include:: Smoking cessation strategies/Smoking packet, Second- hand smoke recommendation, Participation in a smoking cessation program, Previous smoker; encourage continued cessation Nicotine/Smoking Response Code:: Patient communicates acknowledgment Dyslipidemia Dyslipidemia Response Code:: Patient communicates acknowledgment Overweight/Obesity Patient Overweight/Obesity Risk Factors Are:: Obesity - > or = 30 Recommendations Include:: Weight loss of 5-10%, Reduced calorie diet, Exercise 5-7 times/week Overweight/Obesity:: Patient communicates acknowledgment Hypertension Recommendations Include:: Maintain BP <130/85, BP <130/80 if diabetic, DASH dietary guidelines, Decrease/maintain normal body weight, Moderation of ETOH Hypertension:: Patient communicates acknowledgment Heart Disease Heart Disease Response Code:: Patient communicates acknowledgment Diabetes Diabetes:: Patient communicates acknowledgment Metabolic Syndrome Metabolic Syndrome Response Code:: Patient communicates acknowledgment Sedentary Sedentary Response Code:: Patient communicates acknowledgment Stress Stress Response Code:: Patient communicates acknowledgment
[2019-02-21 12:15] LABS: ACT Activated Clotting Time 241 sec (74-137)
[2019-02-21 12:15] LABS: ACT Activated Clotting Time 235 sec (74-137)
[2019-02-21] MEDS: Albuterol 2.5 MG/3 ML VIAL.NEB. INHALATION ×2 (13:14→18:54)
[2019-02-21] MEDS: Budesonide Respules 0.5 MG/2 ML AMPUL.NEB. INHALATION ×2 (13:14→18:55)
--- NOTE | 2019-02-21 14:04 | PN_ITS ---
<GeovanyGeoff - Last Filed: 02/21/19 14:00> Patient Problems: Active and Suspected Problems (Last Updated 02/21/19 @ 12:02 by Suly Yoder) Chest pain (Acute) Subjective: No further CP. No pressure, tightness, heaviness, LH, dizziness, no SOB. Wants to go home. Tolerated the cath / stents well this AM. - Physical Exam General: Alert, Oriented x3, Cooperative HEENT: Atraumatic, PERRLA, EOMI, Normocephalic Neck: Supple, No JVD, Negative Carotid Bruits Lungs: Clear to auscultation, Normal air movement Cardiovascular: Regular rate, No murmurs Abdomen: Bowel Sounds Present, Soft, Non Tender Extremities: No edema, Capillary Refill Less than 3 Seconds Skin: No rashes, No breakdown Musculoskeletal: No Tenderness to Palpation of Joints or Extremities Neurological: Cranial nerves II-XII grossly intact Psych/Mental Status: Normal Affect, Appropriate, Alert and oriented to time, place, person, mood and affect Vital Signs Temp Pulse Resp BP Pulse Ox 97.7 F L 64 19 H 155/106 H 93 02/21/19 11:00 02/21/19 12:35 02/21/19 12:35 02/21/19 12:35 02/21/19 12:35 Oxygen Flow Rate (L/min) 2 Oxygen Delivery Method Room Air Weight: 221 lb 12 oz Body Mass Index (BMI) 33.7 Intake and Output for Last 24 Hours 02/19/19 02/20/19 02/21/19 23:59 23:59 23:59 Intake Total 577 / 577 Output Total 300 / 300 Balance 277 / 277 Laboratory Tests Past 24 Hrs 02/20/19 02/20/19 02/20/19 19:33 19:33 23:10 WBC 9.6 RBC 5.02 Hgb 15.1 Hct 44.2 MCV 88.0 MCH 30.1 MCHC 34.2 RDW 13.3 RDW Differential 42.5 Plt Count 235 MPV 10.2 Immature Gran % (Auto) 0.300 Neut % (Auto) 53.0 Lymph % (Auto) 35.6 [place] % (Auto) 8.4 Eos % (Auto) 2.3 Baso % (Auto) 0.4 Absolute Neuts (auto) 5.1 Absolute Lymphs (auto) 3.43 Total Counted Not Reportable PT INR Activated Clotting Time Sodium 140 Potassium 3.3 L Chloride 104 Carbon Dioxide 31.0 Anion Gap 5 BUN 14 Creatinine 0.92 Estim Creat Clear Calc 96.03 Est GFR (MDRD) Af Amer 114 Est GFR (MDRD) Non-Af 94 BUN/Creatinine Ratio 15.3 Glucose 131 H Calcium 8.8 Troponin I 0.063 H 0.064 H Triglycerides Cholesterol LDL Cholesterol VLDL Cholesterol HDL Cholesterol 02/21/19 02/21/19 02/21/19 02:30 02:30 02:30 WBC RBC Hgb Hct MCV MCH MCHC RDW RDW Differential Plt Count MPV Immature Gran % (Auto) Neut % (Auto) Lymph % (Auto) [place] % (Auto) Eos % (Auto) Baso % (Auto) Absolute Neuts (auto) Absolute Lymphs (auto) Total Counted PT 12.7 INR 1.0 Activated Clotting Time Sodium Potassium Chloride Carbon Dioxide Anion Gap BUN Creatinine Estim Creat Clear Calc Est GFR (MDRD) Af Amer Est GFR (MDRD) Non-Af BUN/Creatinine Ratio Glucose Calcium Troponin I 0.064 H Triglycerides 118 Cholesterol 123 LDL Cholesterol 67 VLDL Cholesterol 24 HDL Cholesterol 32 L 02/21/19 02/21/19 09:47 10:36 WBC RBC Hgb Hct MCV MCH MCHC RDW RDW Differential Plt Count MPV Immature Gran % (Auto) Neut % (Auto) Lymph % (Auto) [place] % (Auto) Eos % (Auto) Baso % (Auto) Absolute Neuts (auto) Absolute Lymphs (auto) Total Counted PT INR Activated Clotting Time 235 H 241 H Sodium Potassium Chloride Carbon Dioxide Anion Gap BUN Creatinine Estim Creat Clear Calc Est GFR (MDRD) Af Amer Est GFR (MDRD) Non-Af BUN/Creatinine Ratio Glucose Calcium Troponin I Triglycerides Cholesterol LDL Cholesterol VLDL Cholesterol HDL Cholesterol Medical Necessity - Tobacco Use Smoking Status: Current every day smoker Assessment/Plan All Active Problems (Last Updated 02/21/19 @ 12:02 by Suly Yoder) Chest pain (Acute) Borderline elevated troponin (Resolved) Non-ST elevation [place] (NSTEMI) (Resolved) 1. NSTEMI - s/p 2 stents this AM. Continue norvasc, aspirin, statin, plavix, imdur, lisinopril, metoprolol. 2. HTN emergency - improving 3. DMt2 - will need to hold metformin for at least 48 hrs. 4. Asthma/COPD - prn aerosols, pulmicort. No wheezing, no SOB 5. Tobacco abuse - ongoing. refused patch DC planning: home tomorrow likely This patient was seen by Geoff Armenta PA-C under the supervision of Dr. Robertson <Elizabeth Robertson - Last Filed: 02/21/19 14:55> - Physical Exam Vital Signs Temp Pulse Resp BP Pulse Ox 97.7 F L 69 16 155/106 H 96 02/21/19 11:00 02/21/19 13:14 02/21/19 13:14 02/21/19 12:35 02/21/19 13:14 Oxygen Flow Rate (L/min) 2 Oxygen Delivery Method Room Air Weight: 100.584 kg Body Mass Index (BMI) 33.7 Intake and Output for Last 24 Hours 02/19/19 02/20/19 02/21/19 23:59 23:59 23:59 Intake Total 577 / 577 Output Total 300 / 300 Balance 277 / 277 Laboratory Tests Past 24 Hrs 02/20/19 02/20/19 02/20/19 19:33 19:33 23:10 WBC 9.6 RBC 5.02 Hgb 15.1 Hct 44.2 MCV 88.0 MCH 30.1 MCHC 34.2 RDW 13.3 RDW Differential 42.5 Plt Count 235 MPV 10.2 Immature Gran % (Auto) 0.300 Neut % (Auto) 53.0 Lymph % (Auto) 35.6 [place] % (Auto) 8.4 Eos % (Auto) 2.3 Baso % (Auto) 0.4 Absolute Neuts (auto) 5.1 Absolute Lymphs (auto) 3.43 Total Counted Not Reportable PT INR Activated Clotting Time Sodium 140 Potassium 3.3 L Chloride 104 Carbon Dioxide 31.0 Anion Gap 5 BUN 14 Creatinine 0.92 Estim Creat Clear Calc 96.03 Est GFR (MDRD) Af Amer 114 Est GFR (MDRD) Non-Af 94 BUN/Creatinine Ratio 15.3 Glucose 131 H Calcium 8.8 Troponin I 0.063 H 0.064 H Triglycerides Cholesterol LDL Cholesterol VLDL Cholesterol HDL Cholesterol 02/21/19 02/21/19 02/21/19 02:30 02:30 02:30 WBC RBC Hgb Hct MCV MCH MCHC RDW RDW Differential Plt Count MPV Immature Gran % (Auto) Neut % (Auto) Lymph % (Auto) [place] % (Auto) Eos % (Auto) Baso % (Auto) Absolute Neuts (auto) Absolute Lymphs (auto) Total Counted PT 12.7 INR 1.0 Activated Clotting Time Sodium Potassium Chloride Carbon Dioxide Anion Gap BUN Creatinine Estim Creat Clear Calc Est GFR (MDRD) Af Amer Est GFR (MDRD) Non-Af BUN/Creatinine Ratio Glucose Calcium Troponin I 0.064 H Triglycerides 118 Cholesterol 123 LDL Cholesterol 67 VLDL Cholesterol 24 HDL Cholesterol 32 L 02/21/19 02/21/19 09:47 10:36 WBC RBC Hgb Hct MCV MCH MCHC RDW RDW Differential Plt Count MPV Immature Gran % (Auto) Neut % (Auto) Lymph % (Auto) [place] % (Auto) Eos % (Auto) Baso % (Auto) Absolute Neuts (auto) Absolute Lymphs (auto) Total Counted PT INR Activated Clotting Time 235 H 241 H Sodium Potassium Chloride Carbon Dioxide Anion Gap BUN Creatinine Estim Creat Clear Calc Est GFR (MDRD) Af Amer Est GFR (MDRD) Non-Af BUN/Creatinine Ratio Glucose Calcium Troponin I Triglycerides Cholesterol LDL Cholesterol VLDL Cholesterol HDL Cholesterol Assessment/Plan This patient was seen in conjunction with BAYLEE Cormier. I have independently interviewed and examined the patient and reviewed pertinent historical, laboratory, and other data. Please refer to BAYLEE Cormier note for his patient's presentation, findings, and recommendations. I have reviewed and his note and concur with his documentation Patient was seen and examined. He is s/p cath today with WAN to LAD. He denied any chest pain or dizziness or palpitation. Vitals reviewed-blood pressure slightly elevated Physical Exam: Gen: Obese, comfortable, not pale, not jaundiced CVS:HS I +II, regular, no murmurs RESP: CTA GI:soft, BS present and normal, nontender, no palpable organs EXT:No edema, right wrist appears intact, able to wiggle hands, no neurovascular compromise ASSESSMENT: 1. NSTEMI, s/po cardiac cath and WAN to LAD 2. Hypertensive emergency 3. Uncontrolled hypertension 4. Type 2DM 5. Asthma/COPD 6. Nicotine dependence Plan: Continue to monitor in ICU Follow facsimile machine operator recommendation Insulin sliding scale before meals at bedtime Code Visit Inpatient E&M: 69154 Subs Hosp L2
--- NOTE | 2019-02-21 14:43 | CL.D_ITS ---
Patient Name: LATONYA ELDER Study Date: 02/21/2019 Performing: Eric Flores MD Ht: 68.11 inches 173 cm : 1970 Wt: 222.67 lbs 101 kg Age: 48 Gender: male BSA: 2.14 PROCEDURE(S) PERFORMED [id number] W OR WO PTCA, SINGLE CORONARY ARTERY [id number] W OR WO PTCA, EACH ADD'L ARTERY, SAME MAJOR CLINICAL PROFILE AND INDICATIONS Indications: Worsening Angina Heart Failure: None Stress/Imaging Stress/Image Study Performed: No Angina Classification Anginal Classification w/in 2 Weeks: CCS III CAD Presentations: Unstable angina. Unstable angina. CONCLUSIONS High-grade proximal left anterior descending artery stenosis with previously placed stent in the circ umflex artery patent and mild right coronary disease. RECOMMENDATIONS Referred for immediate PCI DESCRIPTION OF PROCEDURE The patient arrived to the procedure lab. The risks and benefits of the procedure as well as a full d escription of our services here and current unavailability of surgical backup were fully explained to the patient and/or their significant other prior to the catheterization. The Timeout was completed, verifying the correct patient and procedure. The patient's procedural site was prepped and draped in the usual fashion. Local anesthetic was given subcutaneously to right radial region with Lidocaine 2% . Using a modified Seldinger technique, arterial access was obtained via the right radial artery, a 6 Fr sheath was inserted. Right Coronary Artery selective angiography was then performed in multiple v iews using a 5 Fr. 4.0 [place] catheter. Left Coronary Artery selective angiography was performed in mu ltiple views using a 5 Fr. 4.0 [place] catheter. Left Ventriculography was performed in SANTOS projection using a 5 Fr. [place] catheter. LV to AO pullback pressures were then recorded.The arterial sheath was pulled and a TR Band was applied for hemostasis 15 cc air CORONARY ANGIOGRAPHY DOMINANCE: Right Dominant LEFT HEART ASSESSMENT Left Ventricular Ejection Fraction: by LV Gram 55 % Normal LV wall motion Normal Left Ventricular systolic function LEFT MAIN: Non-obstructive LEFT ANTERIOR DECENDING ARTERY: PROX LAD: 95 % Stenosis MID LAD: 50 % Stenosis CIRCUMFLEX ARTERY: MID CIRC: Previously placed stent has an instent 40 % restenosis OM 1: Proximal - Mild luminal irregularities RIGHT CORONARY ARTERY: Mild luminal irregularities COMPLICATIONS No Complications PROCEDURE MEDICATIONS Fentanyl 50 mcg IV Versed 1 mg IV Versed 1 mg IV Versed 1 mg IV Oxygen: 2 L/min via nasal cannula Heparin diluted in 23cc Heparinized saline. Patient given 10cc IA of this solution. 02/21/2019 09:18:3 5 Heparin 8000 unit(s) IV 02/21/2019 09:42:12 Heparin 2000 unit(s) IV 02/21/2019 09:50:24 Heparin 2000 unit(s) IV 02/21/2019 10:12:09 Heparin 1000 unit(s) IV 02/21/2019 10:40:01 Nitro 200 mcg IC 02/21/2019 10:25:09 Plavix 300 mg PO 02/21/2019 10:39:54 Verapamil 2.5mg, Ntg 100mcgs, 2000 units of Heparin diluted in 23cc Heparinized saline. Patient give n 10cc IA of this solution. 02/21/2019 09:18:35 IV Bolus: .9 NaCl 250 ml total 02/21/2019 10:09:32 IV Fluids: .9 NaCl decreased to 100 ml/hr 02/21/2019 10:09:41 SUMMARY OF HEMODYNAMIC DATA Time AIR REST ECG 08:57:23 AO 135/92 (111) SA 09:20:50 LV 158/0, 15 09:30:54 LV 150/0, 14 09:31:02 LV 142/5, 18 09:32:45 LVp 144/3, 15 09:32:47 AOp 151/89 (114) 09:32:52 AO 158/94 (117) 09:46:04 Signed By Eric Flores MD On 02/21/2019 14:42:32 Eric Flores MD
--- NOTE | 2019-02-21 21:10 | EKG12_ITS ---
Test Reason : CHEST PAIN Blood Pressure : / mmHG Vent. Rate : 079 BPM Atrial Rate : 079 BPM P-R Int : 192 ms QRS Dur : 108 ms QT Int : 400 ms P-R-T Axes : 061 007 020 degrees QTc Int : 458 ms Normal sinus rhythm Septal infarct , age undetermined Abnormal ECG When compared with ECG of 21-FEB-2019 11:04, MANUAL COMPARISON REQUIRED, DATA IS UNCONFIRMED Confirmed by BIRGIT EVANGELISTA, GENE ([id number]), newspaper managing editor EVELIO CURRY ([id number]) on 02/25/2019 8:25:11 AM Referred By: Hesham Canchola Confirmed By:GENE GENAO MD
--- NOTE | 2019-02-21 21:10 | NURSING ---
Pt's call light answered, pt thrashing in bed, appears agitated and distressed stating I hurt so fucking bad. Pt describes pain as worst pain in my life. Pain in B/L thighs, abd, chest, neck, and head. BP elevated, EKG obtained, and BGT complete. Pt unable to be consoled by this RN or pt's . Dr. Flores to be notified.
[2019-02-21] MEDS: Nitroglycerin Infusion 250 ML 3 MG CONT INF (21:32)
[2019-02-21] MEDS: Atorvastatin Calcium 80 MG Tablet PO (21:46)
[2019-02-21] MEDS: Lisinopril 20 MG Tablet PO (21:46)
--- NOTE | 2019-02-21 22:00 | NURSING ---
No improvement with BP or pain, pt continues to be restless and thrashing in bed, despite Nitro gtt. Dr. Flores to be made aware.
--- NOTE | 2019-02-21 22:45 | NURSING ---
Pt appears to be in excruciating pain and worsening from previous assessment pt is screaming, cussing, and thrashing in bed. Unable to reach Dr. Flores, this RN will contact Hospitalist.
[2019-02-21] MEDS: Morphine 4 MG/ML Syringe IV (22:56)
[2019-02-21] MEDS: Midazolam 2 MG/2 ML Syringe IV (23:23)
[2019-02-21] MEDS: 0.9% NaCl Peripheral Flush Adult/Peds IV (23:23)
--- NOTE | 2019-02-21 23:25 | NURSING ---
Pain and restlessness continues, worsening after Morphine given per pt report. Versed administered per Dr. Sandra barrera.
[2019-02-21 23:31] LABS: Bedside Glucose 161 mg/dL (70-110)
[2019-02-22] VITALS (47 sets, daily range): BP systolic 117–200; BP diastolic 58–103; PULSE 79–97; RESP 15–26; TEMP 36.7–37.1; O2SAT 88–95
[2019-02-22] MEDS: Nitroglycerin Infusion 250 ML 3 MG CONT INF ×2 (02:26→07:34)
[2019-02-22] MEDS: 0.9% NaCl Peripheral Flush Adult/Peds IV ×2 (02:26→11:06)
[2019-02-22 04:44] LABS: Anion Gap 7 (5-15); BUN 12 mg/dL (7-18); BUN/Creat Ratio 14.3 RATIO (10-20); Calcium,Total 8.2 mg/dL (8.5-10.1); Chloride 105 mmol/L (98-107); Creatinine, Serum 0.84 mg/dL (0.70-1.30); EST Glomerular Filtration Rate 104 mL/min (>60); Est Glom Filt Rate - Afr Amer 126 mL/min (>60); Estimated Creatinine Clearance 105.18 ml/min; Glucose 169 mg/dL (74-106); Potassium 3.5 mmol/L (3.5-5.1); Sodium Level 140 mmol/L (136-145)
[2019-02-22 05:06] LABS: Hematocrit 37.2 % (40-54); Hemoglobin 12.6 g/dl (13.0-16.5); Mean Corp Hgb Conc 33.9 g/gl (32-36); Mean Corpuscular Volume 88.6 fL (80-94); Mean Platelet Vol. 10.2 fl (6.2-12.0); Platelet Count 214 K/mm3 (150-450); RBC Distribution Width CV 13.3 % (11.6-14.6); RBC Distribution Width SD 43.1 fl (35.1-43.9); White Blood Count 17.7 K/mm3 (4.4-11.0)
[2019-02-22 05:07] LABS: Scan Indicated on CBC? Y/N NO
[2019-02-22] MEDS: Morphine 4 MG/ML Syringe IV ×2 (06:47→11:06)
[2019-02-22] MEDS: Metoprolol Tartrate 100 MG Tablet PO (06:50)
[2019-02-22] MEDS: amLODIPine 10 MG Tablet PO (06:50)
[2019-02-22] MEDS: Albuterol 2.5 MG/3 ML VIAL.NEB. INHALATION (07:18)
[2019-02-22] MEDS: Budesonide Respules 0.5 MG/2 ML AMPUL.NEB. INHALATION (07:19)
--- NOTE | 2019-02-22 09:52 | PN.CARD_ITS ---
Subjectve: Patient seen and evaluated. Yesterday's events noted. Was rather hypertensive last night. Objective: Vital Signs Temp Pulse Resp BP Pulse Ox 98.8 F 79 20 H 153/69 H 89 02/22/19 08:00 02/22/19 09:15 02/22/19 09:00 02/22/19 09:15 02/22/19 09:00 Oxygen Flow Rate (L/min) 2 Oxygen Delivery Method Room Air Weight: 221 lb 12 oz Body Mass Index (BMI) 33.7 Intake and Output for Last 24 Hours 02/20/19 02/21/19 02/22/19 23:59 23:59 23:59 Intake Total 2049 / 2049 665 / 665 Output Total 1050 / 1050 700 / 700 Balance 999 / 999 -35 / -35 General: Awake, Alert, Oriented x 3 HEENT: PERRL, EOMI, Sclera Non Icteric Neck: Supple, Good ROM, No Lymph Node Enlargement Lungs: Clear to auscultation Cardiovascular: Regular Rhythm, Normal S1, Normal S2, No Murmurs, No Rubs, No Gallops Vascular: No Carotid Bruits, Normal Femoral Pulses, Normal Radial Pulses, Normal Dorsalis Pedal Pulse, Normal Posterior Tibial Pulses Abdomen: Bowel Sounds Present, Soft, Non Tender, No HSM, No Organomegaly Extremities: No Cyanosis, No Clubbing, No edema Musculoskeletal: No Erythema Lymphatic: No Lymph Node Enlargement Neurological: No Focal Motor or Sensory Deficit Psych/Mental Status: Appropriate 02/21/19 23:20: Troponin I 0.337 H 02/22/19 04:20: WBC 17.7 H, RBC 4.20 L, Hgb 12.6 L, Hct 37.2 L, MCV 88.6, MCH 30.0, MCHC 33.9, RDW 13.3, RDW Differential 43.1, Plt Count 214, MPV 10.2 02/22/19 04:20: Sodium 140, Potassium 3.5, Chloride 105, Carbon Dioxide 28.0, Anion Gap 7, BUN 12, Creatinine 0.84, Est GFR (MDRD) Af Amer 126, Est GFR (MDRD) Non-Af 104, BUN/Creatinine Ratio 14.3, Glucose 169 H, Calcium 8.2 L Rhythm: EKG: ECHO: Stress Test: Cardiac Cath: PCI: CT Surgery: Holter monitor: EPS: PPM: CXR: Chest CT Scan: Medical Necessity - Tobacco Use Smoking Status: Current every day smoker Assessment/Plan 1. Coronary artery disease. * Patient is status post angioplasty and stenting of the left anterior descending artery. The previously stented left circumflex artery was noted to be patent. Patient tolerated the procedure well. The plan will be to continue him on aspirin and clopidogrel. * 2. Hypertension * His blood pressure appears to be uncontrolled at this time. * Will recommend continuing the beta-israel with Lopressor 100 mg twice a day * Continue MIO inhibitor with lisinopril 20 mg twice a day * Start hydrochlorothiazide 25 mg a day * Continue Norvasc 10 mg a day * And clonidine 0.1 mg twice a day * If his blood pressure is better by this afternoon he can be discharged for outpatient follow-up. * * Thank you for allowing me to participate in the care of your patient. Please don't hesitate to call if any issues arise
--- NOTE | 2019-02-22 10:00 | EKG12_ITS ---
Test Reason : POST PCI Blood Pressure : / mmHG Vent. Rate : 062 BPM Atrial Rate : 062 BPM P-R Int : 188 ms QRS Dur : 102 ms QT Int : 430 ms P-R-T Axes : 063 019 009 degrees QTc Int : 436 ms Normal sinus rhythm Septal infarct , age undetermined Abnormal ECG When compared with ECG of 21-FEB-2019 05:52, MANUAL COMPARISON REQUIRED, DATA IS UNCONFIRMED Confirmed by BIRGIT EVANGELISTA, GENE ([id number]), industrial editor EVELIO CURRY ([id number]) on 02/25/2019 8:25:58 AM Referred By: Hesham Canchola Confirmed By:GENE GENAO MD
--- NOTE | 2019-02-22 10:27 | DCINST_ITS ---
- Discharge Diagnoses Current Active Problems: Current Active and Chronic Problems (Last Updated 02/21/19 @ 12:02 by Suly Yoder) History of non-ST elevation myocardial infarction (NSTEMI) (Chronic 02/20/15) Chest pain (Acute) CAD (coronary artery disease) (Chronic) S/P PTCA (percutaneous transluminal coronary angioplasty) (Chronic) HLD (hyperlipidemia) (Chronic) You will use the following diet at home:: Calorie/Carbohydrate Controlled (specify 1200, 1400, etc) - 1800/day, Cardiac Your food should be the consistency of: Regular Your liquids should be the consistency of: Regular/Thin Discharge Activity: Return to Normal Activity Allergies/Adverse Reactions: Allergies amoxicillin trihydrate [From Augmentin] Allergy (Verified 02/20/19 19:07) Rash potassium clavulanate [From Augmentin] Allergy (Verified 02/20/19 19:07) Rash codeine Adverse Reaction (Verified 02/20/19 19:07) Nausea Medications to take at Discharge Budesonide/Formoterol 80-4.5 [Symbicort 80-4.5 Mcg Inhaler] 2 puff INHALATION BID 12/09/16 Aspirin 81 mg PO DAILY #90 tab.chew 12/12/16 clopidogrel 75 mg tablet 75 mg PO DAILY #90 tab 11/22/18 hydrochlorothiazide 25 mg tablet 25 mg PO DAILY #90 tab 11/22/18 amlodipine 5 mg tablet 10 mg PO DAILY tab 02/20/19 cholecalciferol (vitamin D3) 50,000 unit tablet 50,000 unit PO QWEEK 02/20/19 isosorbide mononitrate ER 30 mg tablet,extended release 24 hr 30 mg PO DAILY #30 tab 02/20/19 Atorvastatin Calcium [Lipitor] 40 mg PO QHS #30 tablet 02/22/19 Clonidine HCl [Catapres] 0.1 mg PO BID #60 tablet 02/22/19 Lisinopril [Zestril] 20 mg PO BID #60 tablet 02/22/19 Metformin HCl 500 mg PO BID #0 02/22/19 Metoprolol Tartrate [Lopressor (beta israel)] 100 mg PO BID #60 tablet 02/22/19 The following prescriptions were given: Atorvastatin Calcium [Lipitor] 40 mg PO QHS #30 tablet Clonidine HCl [Catapres] 0.1 mg PO BID #60 tablet Lisinopril [Zestril] 20 mg PO BID #60 tablet Metoprolol Tartrate [Lopressor (beta israel)] 100 mg PO BID #60 tablet Primary Care Physician: Hesham Lao MD [Primary Care Provider] - Please follow up with your Primary Care Physician in: 1-2 weeks Test Results: Test results from this visit will be discussed in further detail at your follow- up appointment, if applicable. Please Follow Up With: Eric Flores MD When: as directed Proposed Discharge Date: 02/22/19
[2019-02-22] MEDS: Isosorbide Mononitrate 30 MG Tablet PO (10:42)
[2019-02-22] MEDS: Aspirin 81 MG TAB.CHEW PO (10:42)
[2019-02-22] MEDS: Lisinopril 20 MG Tablet PO (10:43)
[2019-02-22] MEDS: Clopidogrel Bisulfate 75 MG Tablet PO (10:43)
--- NOTE | 2019-02-22 11:18 | VDLE_ITS ---
Reason For Study: SWELLING RIGHT LEFT GSV is normal. GSV is normal. CFV is compressible, spontaneous, phasic, CFV is compressible, spontaneous, phasic, competent and demonstrates normal competent, and demonstrates normal augmentation. augmentation. FV is compressible, spontaneous, phasic, FV is compressible, spontaneous, phasic, competent and demonstrates normal competent and demonstrates normal augmentation. augmentation. POP V is compressible, spontaneous, phasic, POP V is compressible, spontaneous, phasic, competent and demonstrates normal competent and demonstrates normal augmentation. augmentation. T/P Trunk is compressible. T/P Trunk is compressible. PTV is compressible. PTV is compressible. RT PerV is compressible. LT PerV is compressible. Procedure Exam performed portable in ICU/CCU. A preliminary report was called and/or faxed to [facility]. Interpretation Summary No evidence for acute deep venous thrombosis bilateral lower extremities with patent and compressible bilateral great saphenous veins. Ordering Physician: Geoff Armenta Referring Physician: MERY GANT Performed By: Sonia Kellogg, [place], RVT
--- NOTE | 2019-02-22 12:00 | NURSING ---
Pt refusing pulse ox.
[2019-02-22] MEDS: hydroCHLOROthiazide 25 MG Tablet PO (12:22)
[2019-02-22] MEDS: cloNIDine HCl 0.1 MG Tablet PO (12:22)
--- NOTE | 2019-02-22 13:53 | PCM.DC.SUM ---
<Geoff Armenta - Last Filed: 02/22/19 13:53> Discharge Date and Diagnosis - Problem List Patient Problems: Active and Suspected Problems (Last Updated 02/21/19 @ 12:02 by Suly Yoder) Chest pain (Acute) Date of Admission: 02/20/19 Date of Discharge: 02/22/19 - Primary Discharge Diagnosis Active and Suspected Problems (Last Updated 02/21/19 @ 12:02 by Suly Yoder) NSTEMI HTN emergency DMt2 with obesity Asthma/COPD Tobacco abuse - Secondary Discharge Diagnosis Chronic Problems (Last Updated 02/21/19 @ 12:02 by Suly Yoder) History of non-ST elevation myocardial infarction (NSTEMI) (Chronic 02/20/15) CAD (coronary artery disease) (Chronic) S/P PTCA (percutaneous transluminal coronary angioplasty) (Chronic) HLD (hyperlipidemia) (Chronic) Presence of stent in coronary artery (Chronic 02/21/19) WAN to med second obtuse marginal 2.75 x 14 mm resolute integrity 12/11/2016@ [facility] per Dr. Villeda Successful PTCA/WAN Mid D1 using Reolute Integrity 2.5x18 mm Successful PTCA/WAN Prox LAD using Resolute Integrity 3.0x15 mm, post-dilated using 3.25 mm balloon 02/21/2019 @ [facility] per Dr. Villeda Essential hypertension (Chronic) Atherosclerosis of [place] coronary artery of [place] heart without angina pectoris (Chronic) WAN to second obtuse marginal branch in November 2016; PTCA/WAN Mid D1 using Reolute Integrity 2.5x18 mm, PTCA/WAN Prox LAD using Resolute Integrity 3.0x15 mm on 02/21/19; Chest pain (Chronic) COPD (chronic obstructive pulmonary disease) (Chronic) Tobacco abuse (Chronic) Hospital Course and Treatment Imaging Results: RAD/Chest 1 View (Portable) IMPRESSION: No acute cardiopulmonary process. Heart Cath: CONCLUSIONS Successful PTCA/WAN Mid D1 using Reolute Integrity 2.5x18 mm Successful PTCA/WAN Prox LAD using Resolute Integrity 3.0x15 mm, post-dilated using 3.25 mm balloon RECOMMENDATIONS ASA Indefinitley Plavix for at least 12 months Consults: Cardiology - Sandra Operations: None Procedures: Cardiac catheterization Summary of Care Provided: Hospital Course: The patient is a 48 year old M with a hx of CAD with a prior stent in 2017, htn, hld, tobacco abuse, t2DM with obesity, who presented to the ER with c/o chest pain described as left sided 4 out of 10, intermittent, worse with exertion, better with rest. He came to the emergency room EKG demonstrated Q waves in V1 and V3 unchanged from prior, however his troponin was indeterminate. His blood pressure was 200/110. He was admitted to the PCU with cardiology consult. He is felt to have a non-STEMI. He was taken to the [facility] and 2 stents were placed as above. He continued to have issues with blood pressure control, his home blood pressure medications were restarted and Catapres was added. He complained of lower extremity swelling and pain, venous ultrasound was ordered and was negative. Blood pressure remained controlled with Norvasc, Catapres, HCTZ, imdur, metoprolol, and lisinopril. He had some leukocytosis following the heart cath, this was felt to be reactive, and no other signs of any infectious etiology. He was discharged home in stable condition. He will need to follow-up with cardiology as directed, and follow-up with his PCP in 1-2 weeks. Smoking cessation was advised. This patient was seen by Geoff Armenta PA-C under the supervision of Doctor Robertson. [] Patient Problems: Active and Suspected Problems (Last Updated 02/21/19 @ 12:02 by Suly Yoder) Chest pain (Acute) - Physical Exam General: Alert, Oriented x3, Cooperative HEENT: Atraumatic, PERRLA, EOMI, Normocephalic Neck: Supple, No JVD, Negative Carotid Bruits Lungs: Clear to auscultation, Normal air movement Cardiovascular: Regular rate, No murmurs Abdomen: Bowel Sounds Present, Soft, Non Tender Extremities: No edema, Capillary Refill Less than 3 Seconds Skin: No rashes, No breakdown Musculoskeletal: No Tenderness to Palpation of Joints or Extremities Neurological: Cranial nerves II-XII grossly intact Psych/Mental Status: Normal Affect, Appropriate, Alert and oriented to time, place, person, mood and affect Vital Signs Temp Pulse Resp BP Pulse Ox 98.8 F 80 18 138/80 H 90 02/22/19 08:00 02/22/19 10:00 02/22/19 10:00 02/22/19 10:45 02/22/19 10:00 Oxygen Flow Rate (L/min) 2 Oxygen Delivery Method Room Air Weight: 221 lb 12 oz Body Mass Index (BMI) 33.7 Intake and Output for Last 24 Hours 02/20/19 02/21/19 02/22/19 23:59 23:59 23:59 Intake Total 2049 / 2049 665 / 665 Output Total 1050 / 1050 700 / 700 Balance 999 / 999 -35 / -35 Laboratory Tests Past 24 Hrs 02/21/19 02/22/19 02/22/19 23:20 04:20 04:20 WBC 17.7 H RBC 4.20 L Hgb 12.6 L Hct 37.2 L MCV 88.6 MCH 30.0 MCHC 33.9 RDW 13.3 RDW Differential 43.1 Plt Count 214 MPV 10.2 Sodium 140 Potassium 3.5 Chloride 105 Carbon Dioxide 28.0 Anion Gap 7 BUN 12 Creatinine 0.84 Estim Creat Clear Calc 105.18 Est GFR (MDRD) Af Amer 126 Est GFR (MDRD) Non-Af 104 BUN/Creatinine Ratio 14.3 Glucose 169 H Calcium 8.2 L Troponin I 0.337 H POC Glucose 02/21/19 21:13 POC Glucose 161 H Discharge Diet: Low fat/ Low Cholesterol, 1800 Calorie Control Diet, 2000 mg Sodium Diet Discharge Activity: Return to Normal Activity Home Medications: Medications to take at Discharge Budesonide/Formoterol 80-4.5 [Symbicort 80-4.5 Mcg Inhaler] 2 puff INHALATION BID 12/09/16 Aspirin 81 mg PO DAILY #90 tab.chew 12/12/16 clopidogrel 75 mg tablet 75 mg PO DAILY #90 tab 11/22/18 hydrochlorothiazide 25 mg tablet 25 mg PO DAILY #90 tab 11/22/18 amlodipine 5 mg tablet 10 mg PO DAILY tab 02/20/19 cholecalciferol (vitamin D3) 50,000 unit tablet 50,000 unit PO QWEEK 02/20/19 isosorbide mononitrate ER 30 mg tablet,extended release 24 hr 30 mg PO DAILY #30 tab 02/20/19 Atorvastatin Calcium [Lipitor] 40 mg PO QHS #30 tablet 02/22/19 Clonidine HCl [Catapres] 0.1 mg PO BID #60 tablet 02/22/19 Lisinopril [Zestril] 20 mg PO BID #60 tablet 02/22/19 Metformin HCl 500 mg PO BID #0 02/22/19 Metoprolol Tartrate [Lopressor (beta christi)] 100 mg PO BID #60 tablet 02/22/19 Following Prescrptions Were Given to Patient: Atorvastatin Calcium [Lipitor] 40 mg PO QHS #30 tablet Clonidine HCl [Catapres] 0.1 mg PO BID #60 tablet Lisinopril [Zestril] 20 mg PO BID #60 tablet Metoprolol Tartrate [Lopressor (beta christi)] 100 mg PO BID #60 tablet Primary Care Physician: Hesham Lao MD [Primary Care Provider] - Please follow up with your Primary Care Physician in: 1-2 weeks Please Follow Up With: Eric Flores MD When: as directed Disposition: Home Minutes spent on discharge:: 35 Patient Condition:: Stable Medical Necessity - Tobacco Use Smoking Status: Current every day smoker Meaningful Use Info Meaningful Use Diagnoses (Choose all that apply): AMI - AMI Aspirin given w/in 24hrs of arrival?: Yes ASA at discharge?: Yes Statins at discharge?: Yes Michael/ARB at discharge?: Yes Beta Christi at discharge?: Yes Done w/ Acute [place] measure.: Yes <Paintsil,[place] - Last Filed: 02/22/19 14:12> Discharge Date and Diagnosis - Primary Discharge Diagnosis Active and Suspected Problems (Last Updated 02/21/19 @ 12:02 by Suly Yoder) Chest pain (Acute) - Secondary Discharge Diagnosis Chronic Problems (Last Updated 02/21/19 @ 12:02 by Suly Yoder) History of non-ST elevation myocardial infarction (NSTEMI) (Chronic 02/20/15) CAD (coronary artery disease) (Chronic) S/P PTCA (percutaneous transluminal coronary angioplasty) (Chronic) HLD (hyperlipidemia) (Chronic) Presence of stent in coronary artery (Chronic 02/21/19) WAN to med second obtuse marginal 2.75 x 14 mm resolute integrity 12/11/2016@ [facility] per Dr. Villeda Successful PTCA/WAN Mid D1 using Reolute Integrity 2.5x18 mm Successful PTCA/WAN Prox LAD using Resolute Integrity 3.0x15 mm, post-dilated using 3.25 mm balloon 02/21/2019 @ [facility] per Dr. Villeda Essential hypertension (Chronic) Atherosclerosis of [place] coronary artery of [place] heart without angina pectoris (Chronic) WAN to second obtuse marginal branch in November 2016; PTCA/WAN Mid D1 using Reolute Integrity 2.5x18 mm, PTCA/WAN Prox LAD using Resolute Integrity 3.0x15 mm on 02/21/19; Chest pain (Chronic) COPD (chronic obstructive pulmonary disease) (Chronic) Tobacco abuse (Chronic) Hospital Course and Treatment Summary of Care Provided: This patient was seen in conjunction with BAYLEE Cormier. I have independently interviewed and examined the patient and reviewed pertinent historical, laboratory, and other data. Please refer to BAYLEE Cormier note for his patient's presentation, findings, and recommendations. I have reviewed and his note and concur with his documentation. 48-year-old with past medical history of CAD status post stent, hypertension, hyperlipidemia, nicotine dependence, type II DM who comes in with complaints of chest pain and was found to have elevated troponins with EKG changes. Patient underwent cardiac cath and found to have lesion in the mid CAD and underwent stenting with drug-eluting stent. Postprocedure, patient was managed in ICU, he complained of pain in his lower extremities. Overnight there were problems with blood pressure control. Patient was also found to be anxious. Cardiology made recommendations to his blood pressure medication. Blood pressure became better controlled. Patient was discharged in a stable state. Physical Exam: Gen: Obese, comfortable, not pale, not jaundiced CVS:HS I +II, regular, no murmurs RESP: CTA GI:soft, BS present and normal, nontender, no palpable organs EXT:No edema, right wrist appears intact, able to wiggle hands, no neurovascular compromise - Physical Exam Vital Signs Temp Pulse Resp BP Pulse Ox 98.8 F 80 18 138/80 H 90 02/22/19 08:00 02/22/19 10:00 02/22/19 10:00 02/22/19 10:45 02/22/19 10:00 Oxygen Flow Rate (L/min) 2 Oxygen Delivery Method Room Air Weight: 100.584 kg Body Mass Index (BMI) 33.7 Intake and Output for Last 24 Hours 02/20/19 02/21/19 02/22/19 23:59 23:59 23:59 Intake Total 2048 665 / 665 Output Total 1050 / 1050 700 / 700 Balance 999 / 999 -35 / -35 Laboratory Tests Past 24 Hrs 02/21/19 02/22/19 02/22/19 23:20 04:20 04:20 WBC 17.7 H RBC 4.20 L Hgb 12.6 L Hct 37.2 L MCV 88.6 MCH 30.0 MCHC 33.9 RDW 13.3 RDW Differential 43.1 Plt Count 214 MPV 10.2 Sodium 140 Potassium 3.5 Chloride 105 Carbon Dioxide 28.0 Anion Gap 7 BUN 12 Creatinine 0.84 Estim Creat Clear Calc 105.18 Est GFR (MDRD) Af Amer 126 Est GFR (MDRD) Non-Af 104 BUN/Creatinine Ratio 14.3 Glucose 169 H Calcium 8.2 L Troponin I 0.337 H POC Glucose 02/21/19 21:13 POC Glucose 161 H Code Visit Inpatient E&M: 32835 Disch Hosp
--- NOTE | 2019-02-22 13:58 | DS.PCM_ITS ---
<Geoff Armenta - Last Filed: 02/22/19 13:53> Discharge Date and Diagnosis - Problem List Patient Problems: Active and Suspected Problems (Last Updated 02/21/19 @ 12:02 by Suly Yoder) Chest pain (Acute) Date of Admission: 02/20/19 Date of Discharge: 02/22/19 - Primary Discharge Diagnosis Active and Suspected Problems (Last Updated 02/21/19 @ 12:02 by Suly Yoder) NSTEMI HTN emergency DMt2 with obesity Asthma/COPD Tobacco abuse - Secondary Discharge Diagnosis Chronic Problems (Last Updated 02/21/19 @ 12:02 by Suly Yoder) History of non-ST elevation myocardial infarction (NSTEMI) (Chronic 02/20/15) CAD (coronary artery disease) (Chronic) S/P PTCA (percutaneous transluminal coronary angioplasty) (Chronic) HLD (hyperlipidemia) (Chronic) Presence of stent in coronary artery (Chronic 02/21/19) WAN to med second obtuse marginal 2.75 x 14 mm resolute integrity 12/11/2016@ [facility] per Dr. Villeda Successful PTCA/WAN Mid D1 using Reolute Integrity 2.5x18 mm Successful PTCA/WAN Prox LAD using Resolute Integrity 3.0x15 mm, post-dilated using 3.25 mm balloon 02/21/2019 @ [facility] per Dr. Villeda Essential hypertension (Chronic) Atherosclerosis of [place] coronary artery of [place] heart without angina pectoris (Chronic) WAN to second obtuse marginal branch in November 2016; PTCA/WAN Mid D1 using Reolute Integrity 2.5x18 mm, PTCA/WAN Prox LAD using Resolute Integrity 3.0x15 mm on 02/21/19; Chest pain (Chronic) COPD (chronic obstructive pulmonary disease) (Chronic) Tobacco abuse (Chronic) Hospital Course and Treatment Imaging Results: RAD/Chest 1 View (Portable) IMPRESSION: No acute cardiopulmonary process. Heart Cath: CONCLUSIONS Successful PTCA/WAN Mid D1 using Reolute Integrity 2.5x18 mm Successful PTCA/WAN Prox LAD using Resolute Integrity 3.0x15 mm, post-dilated using 3.25 mm balloon RECOMMENDATIONS ASA Indefinitley Plavix for at least 12 months Consults: Cardiology - Sandra Operations: None Procedures: Cardiac catheterization Summary of Care Provided: Hospital Course: The patient is a 48 year old M with a hx of CAD with a prior stent in 2017, htn, hld, tobacco abuse, t2DM with obesity, who presented to the ER with c/o chest pain described as left sided 4 out of 10, intermittent, worse with exertion, better with rest. He came to the emergency room EKG demonstrated Q waves in V1 and V3 unchanged from prior, however his troponin was indeterminate. His blood pressure was 200/110. He was admitted to the PCU with cardiology consult. He is felt to have a non-STEMI. He was taken to the [facility] and 2 stents were placed as above. He continued to have issues with blood pressure control, his home blood pressure medications were restarted and Catapres was added. He complained of lower extremity swelling and pain, venous ultrasound was ordered and was negative. Blood pressure remained controlled with Norvasc, Catapres, HCTZ, imdur, metoprolol, and lisinopril. He had some leukocytosis following the heart cath, this was felt to be reactive, and no other signs of any infectious etiology. He was discharged home in stable condition. He will need to follow- up with cardiology as directed, and follow-up with his PCP in 1-2 weeks. Smokin g cessation was advised. This patient was seen by Geoff Armenta PA-C under the supervision of Doctor Robertson. [] Patient Problems: Active and Suspected Problems (Last Updated 02/21/19 @ 12:02 by Suly Yoder) Chest pain (Acute) - Physical Exam General: Alert, Oriented x3, Cooperative HEENT: Atraumatic, PERRLA, EOMI, Normocephalic Neck: Supple, No JVD, Negative Carotid Bruits Lungs: Clear to auscultation, Normal air movement Cardiovascular: Regular rate, No murmurs Abdomen: Bowel Sounds Present, Soft, Non Tender Extremities: No edema, Capillary Refill Less than 3 Seconds Skin: No rashes, No breakdown Musculoskeletal: No Tenderness to Palpation of Joints or Extremities Neurological: Cranial nerves II-XII grossly intact Psych/Mental Status: Normal Affect, Appropriate, Alert and oriented to time, place, person, mood and affect Vital Signs Temp Pulse Resp BP Pulse Ox 98.8 F 80 18 138/80 H 90 02/22/19 08:00 02/22/19 10:00 02/22/19 10:00 02/22/19 10:45 02/22/19 10:00 Oxygen Flow Rate (L/min) 2 Oxygen Delivery Method Room Air Weight: 221 lb 12 oz Body Mass Index (BMI) 33.7 Intake and Output for Last 24 Hours 02/20/19 02/21/19 02/22/19 23:59 23:59 23:59 Intake Total 2049 / 2049 665 / 665 Output Total 1050 / 1050 700 / 700 Balance 999 / 999 -35 / -35 Laboratory Tests Past 24 Hrs 02/21/19 02/22/19 02/22/19 23:20 04:20 04:20 WBC 17.7 H RBC 4.20 L Hgb 12.6 L Hct 37.2 L MCV 88.6 MCH 30.0 MCHC 33.9 RDW 13.3 RDW Differential 43.1 Plt Count 214 MPV 10.2 Sodium 140 Potassium 3.5 Chloride 105 Carbon Dioxide 28.0 Anion Gap 7 BUN 12 Creatinine 0.84 Estim Creat Clear Calc 105.18 Est GFR (MDRD) Af Amer 126 Est GFR (MDRD) Non-Af 104 BUN/Creatinine Ratio 14.3 Glucose 169 H Calcium 8.2 L Troponin I 0.337 H POC Glucose 02/21/19 21:13 POC Glucose 161 H Discharge Diet: Low fat/ Low Cholesterol, 1800 Calorie Control Diet, 2000 mg Sodium Diet Discharge Activity: Return to Normal Activity Home Medications: Medications to take at Discharge Budesonide/Formoterol 80-4.5 [Symbicort 80-4.5 Mcg Inhaler] 2 puff INHALATION BID 12/09/16 Aspirin 81 mg PO DAILY #90 tab.chew 12/12/16 clopidogrel 75 mg tablet 75 mg PO DAILY #90 tab 11/22/18 hydrochlorothiazide 25 mg tablet 25 mg PO DAILY #90 tab 11/22/18 amlodipine 5 mg tablet 10 mg PO DAILY tab 02/20/19 cholecalciferol (vitamin D3) 50,000 unit tablet 50,000 unit PO QWEEK 02/20/19 isosorbide mononitrate ER 30 mg tablet,extended release 24 hr 30 mg PO DAILY #30 tab 02/20/19 Atorvastatin Calcium [Lipitor] 40 mg PO QHS #30 tablet 02/22/19 Clonidine HCl [Catapres] 0.1 mg PO BID #60 tablet 02/22/19 Lisinopril [Zestril] 20 mg PO BID #60 tablet 02/22/19 Metformin HCl 500 mg PO BID #0 02/22/19 Metoprolol Tartrate [Lopressor (beta christi)] 100 mg PO BID #60 tablet 02/22/19 Following Prescrptions Were Given to Patient: Atorvastatin Calcium [Lipitor] 40 mg PO QHS #30 tablet Clonidine HCl [Catapres] 0.1 mg PO BID #60 tablet Lisinopril [Zestril] 20 mg PO BID #60 tablet Metoprolol Tartrate [Lopressor (beta christi)] 100 mg PO BID #60 tablet Primary Care Physician: Hesham Lao MD [Primary Care Provider] - Please follow up with your Primary Care Physician in: 1-2 weeks Please Follow Up With: Eric Flores MD When: as directed Disposition: Home Minutes spent on discharge:: 35 Patient Condition:: Stable Medical Necessity - Tobacco Use Smoking Status: Current every day smoker Meaningful Use Info Meaningful Use Diagnoses (Choose all that apply): AMI - AMI Aspirin given w/in 24hrs of arrival?: Yes ASA at discharge?: Yes Statins at discharge?: Yes Michael/ARB at discharge?: Yes Beta Christi at discharge?: Yes Done w/ Acute [place] measure.: Yes <Marcelo,[place] - Last Filed: 02/22/19 14:12> Discharge Date and Diagnosis - Primary Discharge Diagnosis Active and Suspected Problems (Last Updated 02/21/19 @ 12:02 by Suly Yoder) Chest pain (Acute) - Secondary Discharge Diagnosis Chronic Problems (Last Updated 02/21/19 @ 12:02 by Suly Yoder) History of non-ST elevation myocardial infarction (NSTEMI) (Chronic 02/20/15) CAD (coronary artery disease) (Chronic) S/P PTCA (percutaneous transluminal coronary angioplasty) (Chronic) HLD (hyperlipidemia) (Chronic) Presence of stent in coronary artery (Chronic 02/21/19) WAN to med second obtuse marginal 2.75 x 14 mm resolute integrity 12/11/2016@ [facility] per Dr. Villeda Successful PTCA/WAN Mid D1 using Reolute Integrity 2.5x18 mm Successful PTCA/WAN Prox LAD using Resolute Integrity 3.0x15 mm, post-dilated using 3.25 mm balloon 02/21/2019 @ [facility] per Dr. Villeda Essential hypertension (Chronic) Atherosclerosis of [place] coronary artery of [place] heart without angina pectoris (Chronic) WAN to second obtuse marginal branch in November 2016; PTCA/WAN Mid D1 using Reolute Integrity 2.5x18 mm, PTCA/WAN Prox LAD using Resolute Integrity 3.0x15 mm on 02/21/19; Chest pain (Chronic) COPD (chronic obstructive pulmonary disease) (Chronic) Tobacco abuse (Chronic) Hospital Course and Treatment Summary of Care Provided: This patient was seen in conjunction with BAYLEE Cormier. I have independently interviewed and examined the patient and reviewed pertinent historical, lab oratory, and other data. Please refer to BAYLEE Cormier note for his patient's presentation, findings, and recommendations. I have reviewed and his note and concur with his documentation. 48-year-old with past medical history of CAD status post stent, hypertension, hyperlipidemia, nicotine dependence, type II DM who comes in with complaints of chest pain and was found to have elevated troponins with EKG changes. Patient underwent cardiac cath and found to have lesion in the mid CAD and underwent stenting with drug-eluting stent. Postprocedure, patient was managed in ICU, he complained of pain in his lower extremities. Overnight there were problems with blood pressure control. Patient was also found to be anxious. Cardiology made recommendations to his blood pressure medication. Blood pressure became better controlled. Patient was discharged in a stable state. Physical Exam: Gen: Obese, comfortable, not pale, not jaundiced CVS:HS I +II, regular, no murmurs RESP: CTA GI:soft, BS present and normal, nontender, no palpable organs EXT:No edema, right wrist appears intact, able to wiggle hands, no neurovascular compromise - Physical Exam Vital Signs Temp Pulse Resp BP Pulse Ox 98.8 F 80 18 138/80 H 90 02/22/19 08:00 02/22/19 10:00 02/22/19 10:00 02/22/19 10:45 02/22/19 10:00 Oxygen Flow Rate (L/min) 2 Oxygen Delivery Method Room Air Weight: 100.584 kg Body Mass Index (BMI) 33.7 Intake and Output for Last 24 Hours 02/20/19 02/21/19 02/22/19 23:59 23:59 23:59 Intake Total 2048 665 / 665 Output Total 1050 / 1050 700 / 700 Balance 999 / 999 -35 / -35 Laboratory Tests Past 24 Hrs 02/21/19 02/22/19 02/22/19 23:20 04:20 04:20 WBC 17.7 H RBC 4.20 L Hgb 12.6 L Hct 37.2 L MCV 88.6 MCH 30.0 MCHC 33.9 RDW 13.3 RDW Differential 43.1 Plt Count 214 MPV 10.2 Sodium 140 Potassium 3.5 Chloride 105 Carbon Dioxide 28.0 Anion Gap 7 BUN 12 Creatinine 0.84 Estim Creat Clear Calc 105.18 Est GFR (MDRD) Af Amer 126 Est GFR (MDRD) Non-Af 104 BUN/Creatinine Ratio 14.3 Glucose 169 H Calcium 8.2 L Troponin I 0.337 H POC Glucose 02/21/19 21:13 POC Glucose 161 H Code Visit Inpatient E&M: [id number] Disch Hosp
== END 2019-02-22 09:34 | disposition home or self-care (01) ==
LOC: ED 20:03 → PCU 22:10 → ICU 02-21 10:05
PROVIDERS: Internal Medicine Cardiovascular Disease; Admitting Provider Hospitalist; Emergency Provider Emergency Medicine; Family Provider Family Medicine; PCP Family Medicine; Visit Provider Internal Medicine
DX: I21.4 Non-ST elevation (NSTEMI) myocardial infarction (principal); I16.1 Hypertensive emergency; I25.10 Atherosclerotic heart disease of native coronary artery without angina pectoris; I10 Essential (primary) hypertension; I25.2 Old myocardial infarction; J44.9 Chronic obstructive pulmonary disease, unspecified; E11.9 Type 2 diabetes mellitus without complications; E78.5 Hyperlipidemia, unspecified; E66.9 Obesity, unspecified; Z79.899 Other long term (current) drug therapy; Z95.5 Presence of coronary angioplasty implant and graft; Z68.33 Body mass index [BMI] 33.0-33.9, adult; Z71.3 Dietary counseling and surveillance
CPT/HCPCS: 71045; 80048; 80061; 82962; 84484; 85025; 85027; 85347; 85610; 92928; 92929; 93005; 93458; 93970; 94640; 96361; 96365; 96366; 96375; 96376; 99152; 99153; 99218; 99285; J7030; Q9967; A4216; C1725; C1769; C1874; C1887; C1894; C9600; C9601; G0378

== ENCOUNTER → 2020-02-06 10:47 | Outpatient (CLI) | payer OTHER, SELFPAY ==
[2019-02-21 11:32] VITALS: BMI 33.7
[2020-02-06 10:14] VITALS: BMI 35.6
--- NOTE | 2020-02-06 10:49 | RAD_ITS ---
STUDY: X-RAY CHEST REASON FOR EXAM: Male, 49 years old. CP HX. ALSO GA and amp; STENTS INSERTION TECHNIQUE: PA and lateral views of the chest. COMPARISON: Comparison is made with prior study dated February 20, 2019. FINDINGS: The lungs are clear and expanded. There is no demonstrated pleural abnormality. Normal size heart. Normal mediastinum and soniya. Normal visualized pulmonary arteries. There is atherosclerotic tortuosity of the aortic arch and descending thoracic aorta. Normal visualized thoracic spine. Normal visualized ribs, clavicles, and shoulders. There is no demonstrated abnormality of the visualized soft tissue structures of the upper abdomen. RAD/Chest PA and Lateral IMPRESSION: No acute abnormality is seen. Electronically Signed: Jin Woodall, at 11:38 EDT , Service support ,
[2020-02-06 11:58] LABS: Anion Gap 5 (5-15); BUN 18 mg/dL (7-18); Calcium,Total 9.3 mg/dL (8.5-10.1); Chloride 107 mmol/L (98-107); EST Glomerular Filtration Rate 69 mL/min (>60); Est Glom Filt Rate - Afr Amer 83 mL/min (>60); Glucose 179 mg/dL (74-106); Sodium Level 142 mmol/L (136-145)
[2020-02-06 11:59] LABS: Absolute Lymphocyte Count 2.64 X10^3/uL (0.83-4.51); Absolute Neutrophil Count 6.2 X10^3/uL (2.0-7.7); Basophil# 0.05 X10^3/uL; Basophil% 0.5 % (0-1); Eosinophil# 0.26 X10^3/uL; Eosinophils% 2.5 % (0-5); Hemoglobin 15.3 g/dL (13.0-16.5); Lymphocyte # 2.64 X10^3/ul (4.0); Lymphocyte % 25.8 % (19-41); Mean Corpuscular Hgb 30.6 pg (27.0-32.0); Mean Platelet Vol. 10.4 fl (6.2-12.0); Monocyte# 1.03 X10^3/uL; Monocyte% 10.1 % (0-10); NRBC Flagged by Analyzer 0 % (0-5); Neutrophil # 6.17 X10^3/uL (2.7-7.7); Neutrophil % 60.3 % (47-70); Platelet Count 270 K/mm3 (150-450); RBC Distribution Width CV 13.2 % (11.6-14.6); RBC Distribution Width SD 43.7 fl (35.1-43.9); White Blood Count 10.2 K/mm3 (4.4-11.0)
== END ==
PROVIDERS: PCP Family Medicine; Referring Provider Internal Medicine Cardiovascular Disease; Visit Provider Internal Medicine Cardiovascular Disease
DX: Z95.5 Presence of coronary angioplasty implant and graft (principal)
CPT/HCPCS: 36415; 71046; 80048; 85025

== ENCOUNTER 2020-03-18 06:51 | Day surgery (SDC) | payer OTHER, SELFPAY ==
[2019-02-21 11:32] VITALS: BMI 33.7
[2020-02-06 10:14] VITALS: BMI 35.6
[2020-03-15 10:55] LABS: Absolute Lymphocyte Count 3.53 X10^3/uL (0.83-4.51); Absolute Neutrophil Count 5.9 X10^3/uL (2.0-7.7); Basophil# 0.07 X10^3/uL; Basophil% 0.6 % (0-1); Eosinophil# 0.21 X10^3/uL; Eosinophils% 1.9 % (0-5); Hematocrit 44.1 % (40-54); Hemoglobin 14.5 g/dL (13.0-16.5); Lymphocyte # 3.53 X10^3/ul (4.0); Lymphocyte % 31.8 % (19-41); Mean Corp Hgb Conc 32.9 g/dL (32-36); Mean Corpuscular Hgb 29.1 pg (27.0-32.0); Mean Corpuscular Volume 88.6 fL (80-94); Mean Platelet Vol. 10.3 fl (6.2-12.0); Monocyte# 1.21 X10^3/uL; Monocyte% 10.9 % (0-10); NRBC Flagged by Analyzer 0 % (0-5); Neutrophil # 5.93 X10^3/uL (2.7-7.7); Neutrophil % 53.5 % (47-70); Platelet Count 274 K/mm3 (150-450); RBC Distribution Width CV 13.1 % (11.6-14.6); RBC Distribution Width SD 42.5 fl (35.1-43.9); Red Blood Count 4.98 M/mm3 (4.6-6.2); White Blood Count 11.1 K/mm3 (4.4-11.0)
[2020-03-15 11:02] LABS: Anion Gap 4 (5-15); BUN 11 mg/dL (7-18); BUN/Creat Ratio 11.9 RATIO (10-20); Calcium,Total 9.1 mg/dL (8.5-10.1); Chloride 103 mmol/L (98-107); Creatinine, Serum 0.92 mg/dL (0.70-1.30); EST Glomerular Filtration Rate 93 mL/min (>60); Est Glom Filt Rate - Afr Amer 112 mL/min (>60); Glucose 144 mg/dL (74-106); Potassium 3.7 mmol/L (3.5-5.1); Sodium Level 137 mmol/L (136-145)
[2020-03-17 10:12] VITALS: BMI 35.6
[2020-03-18] VITALS (10 sets, daily range): BP systolic 137–164; BP diastolic 75–109; PULSE 70–90; RESP 16–20; TEMP 36.6–36.8; O2SAT 91–95; BMI 35.6
--- NOTE | 2020-03-18 08:32 | CON.PCM_ITS ---
Reason for Consult Date of Consultation: 03/18/20 Reason for Consultation: chest pain History of Present Illness: The patient is a 49 year old M with a previous history of non-ST elevation myocardial infarction in November 2016 and a drug-eluting stent placed to the second obtuse marginal branch. He also has a history of hypertension, hyperlipidemia and tobacco use. He did undergo a cardiac catheterization which had demonstrated a 95% stenosis in the proximal left anterior descending artery which she had angioplasty and stenting. He has been doing well since but continues to complain of chest discomfort despite being on maximal medical therapy. He presented to the office with the same and it was felt that with his recurrent chest discomfort he undergo an evaluation. [] Past Medical History Allergies/Adverse Reactions: Allergies amoxicillin trihydrate [From Augmentin] Allergy (Verified 02/06/20 10:15) Rash potassium clavulanate [From Augmentin] Allergy (Verified 02/06/20 10:15) Rash codeine Adverse Reaction (Verified 02/06/20 10:15) Nausea Home Medications: Ambulatory Orders Medication Instructions Recorded Budesonide/Formoterol 80-4.5 2 puff INHALATION BID 12/09/16 [Symbicort 80-4.5 Mcg Inhaler] Aspirin 81 mg PO DAILY #90 tab.chew 12/12/16 cholecalciferol (vitamin D3) 1,250 50,000 unit PO QWEEK 02/20/19 mcg (50,000 unit) tablet Metformin HCl 500 mg PO BID #0 02/22/19 clonidine HCl 0.1 mg tablet 0.1 mg PO BID #60 tab 04/15/19 amlodipine 10 mg tablet 10 mg PO DAILY #90 tab 10/14/19 atorvastatin 40 mg tablet 40 mg PO QHS #90 tab 10/14/19 clopidogrel 75 mg tablet 75 mg PO DAILY #90 tab 10/14/19 hydrochlorothiazide 25 mg tablet 25 mg PO DAILY #90 tab 10/14/19 lisinopril 20 mg tablet 20 mg PO BID #180 tab 10/14/19 metoprolol tartrate 100 mg tablet 100 mg PO BID #180 tab 10/14/19 isosorbide mononitrate 60 mg 60 mg PO DAILY #60 tab 02/06/20 tablet,extended release 24 hr Past Medical History (Chronic Problems): Chronic Problems (Last Reviewed 10/14/19 @ 16:[address] Eric Flores MD) Atherosclerosis of [place] coronary artery of [place] heart without angina pectoris (Chronic) WAN-OM2 w/ 2.75 x 14 mm Resolute Integrity 12/11/2016; WAN Mid D1 w/ 2.5 x 18 mm Resolute Integrity and WAN Prox LAD w/ 3.0 x 15 mm Resolute Integrity 02/21/19 History of non-ST elevation myocardial infarction (NSTEMI) (Chronic 02/20/19) 11/2016; 02/20/19 Essential hypertension (Chronic) Hyperlipidemia (Chronic) Nicotine dependence (Chronic) Surgical History: appendectomy, herniorrhaphy, - - Cervical spine fusion surgery. Psychiatric History: No pertinent psych hx - *Family History Maternal Family History: Family History (Last Reviewed 10/14/19 @ 16:[address] Eric Flores MD) Sister Myocardial infarction, Onset Age: 41 Diabetes Mother COPD (chronic obstructive pulmonary disease) Asthma Rheumatoid arthritis Grandmother Diabetes History Items: No pertinent history Paternal Family History: Family History (Last Reviewed 10/14/19 @ 16:[address] Eric Flores MD) Sister Myocardial infarction, Onset Age: 41 Diabetes Mother COPD (chronic obstructive pulmonary disease) Asthma Rheumatoid arthritis Grandmother Diabetes History Items: Heart Disease, Hypertension Sibling Family History: Family History (Last Reviewed 10/14/19 @ 16:[address] Eric Flores MD) Sister Myocardial infarction, Onset Age: 41 Diabetes Mother COPD (chronic obstructive pulmonary disease) Asthma Rheumatoid arthritis Grandmother Diabetes History Items: Heart Disease, - - His sister at age of 41 because of heart attack. Smoking Status: Current every day smoker Tobacco Use: Cigarettes Alcohol: None Drugs: None Review of Systems - Review of Systems General: Denies: Fever, Night Sweats, Fatigue HEENT: Denies: Vision Change Cardiovascular: Reports: Chest Discomfort, Chest Discomfort with Exertion. Denies: Shortness of Breath, Orthopnea, PND, Peripheral Edema, Palpitations, Lightheadedness, Dizziness, Near Syncope, Syncope Respiratory: Denies: Cough, Sputum Production, Hemoptysis Gastrointestinal: Denies: Hematemesis, Hematochezia, Melena Genitourinary: Denies: Dysuria, Hematuria Muscoloskeletal: Denies: Myalgias Skin: Denies: Rash Psychiatric: Denies: Anxiety Hematologic/ Lymphatic: Denies: Lymph Node Enlargement Subjectve: Pleasant gentleman in no distress Objective: Weight: 234 lb Body Mass Index (BMI) 35.6 General: Awake, Alert, Oriented x 3 HEENT: PERRL, EOMI, Sclera Non Icteric Neck: Supple, Good ROM, No Lymph Node Enlargement Lungs: Clear to auscultation Cardiovascular: Regular Rhythm, Normal S1, Normal S2, No Murmurs, No Rubs, No Gallops Rhythm: EKG: ECHO: Stress Test: Cardiac Cath: PCI: CT Surgery: Holter monitor: EPS: PPM: CXR: Chest CT Scan: Assessment/Plan 1. Recurrent chest discomfort in a patient with known coronary artery disease. He has had previous stenting to the obtuse marginal branch as well as to the le ft anterior descending artery and diagonal vessel. He continues to have chest discomfort despite being on maximal medical therapy. It is felt that at this stage if we do not pursue a left heart catheterization he may be at risk for myocardial injury. There is benefits and alternatives of been explained to him during this COVID pandemic. He understands and agrees to proceed. 2. Hypertension His blood pressure does not appear to be very well controlled. He is on clonidine, amlodipine, hydrochlorothiazide, lisinopril, metoprolol, and isosorbide. I would recommend that he be discharged on a higher dose of clonidine of 0.2 mg twice a day. 3. Hyperlipidemia * Patient will continue with aggressive risk factor modification. * * Thank you for allowing me to participate in the care of your patient. Please don't hesitate to call if any issues arise. Essential Procedure Criteria Procedure Essential: Yes Criteria Note: On 02/03/2020 the [place] Department of Health ([facility]) Public Order signed by [facility] Director Leslie Harp M.D., regarding the Management of Non- Essential Surgeries and Procedures for the purpose of preserving Personal Protective Equipment (PPE) and critical hospital capacity and resources within [place] went into effect as of 02/04/2020 at 5:00PM. According to the [facility] Public Order: This action will remain in full force and effect until the State of Emergency declared by the Governor no longer exists or the Director of the [facility] rescinds or modifies this Order.. This [facility] order stated all non-essential or elective surgeries and procedures that utilize PPE should be delayed unless there is undue risk to the current or future health of a patient. After reviewing the aforementioned [facility] Public Order and the patients clinical case, I have determined that the scheduled procedure meets the criteria to go forward. Risk to Patient if Procedure Delayed: Risk of rapidly worsening to severe symptoms if delayed
--- NOTE | 2020-03-18 08:55 | CL.D_ITS ---
Patient Name: LATONYA ELDER Study Date: 03/18/2020 Performing: Eric Flores MD Ht: 68.11 inches 173 cm : 1970 Wt: 233.69 lbs 106 kg Age: 49 Gender: male BSA: 2.19 PROCEDURE(S) PERFORMED GI09-ZDL/COR/LV CLINICAL PROFILE AND INDICATIONS Indications: Worsening Angina Heart Failure: None Stress/Imaging Stress/Image Study Performed: No CAD Presentations: Unstable angina. CONCLUSIONS Patent stents noted in the left anterior descending artery, diagonal branch and circumflex artery. M oderate to severe stenosis noted in the mid to distal left circumflex artery RECOMMENDATIONS Referred for immediate PCI DESCRIPTION OF PROCEDURE The patient arrived to the procedure lab. The risks and benefits of the procedure as well as a full d escription of our services here and current unavailability of surgical backup were fully explained to the patient and/or their significant other prior to the catheterization. The Timeout was completed, verifying the correct patient and procedure. The patient's procedural site was prepped and draped in the usual fashion. Local anesthetic was given subcutaneously to right radial region with Lidocaine 2% . Using a modified Seldinger technique, arterial access was obtained via the right radial artery, a 6 Fr sheath was inserted. Right Coronary Artery selective angiography was then performed in multiple v iews using a 5 Fr. 4.0 [place] catheter. Left Coronary Artery selective angiography was performed in mu ltiple views using a 5 Fr. 4.0 [place] catheter. Left Ventriculography was performed in SANTOS projection using a 5 Fr. Pigtail catheter. LV to AO pullback pressures were then recorded. CORONARY ANGIOGRAPHY DOMINANCE: Right Dominant LEFT HEART ASSESSMENT Left Ventricular Ejection Fraction: by LV Gram 65 % Normal Left Ventricular systolic function LEFT MAIN: Angiographically normal LEFT ANTERIOR DESCENDING ARTERY: PROX LAD: Previously placed stent is patent DIAGONAL 1: Proximal - Previously placed stent is patent CIRCUMFLEX ARTERY: MID CIRC: Previously placed stent is patent, 75 % Stenosis RIGHT CORONARY ARTERY: Mild luminal irregularities less than 30% COMPLICATIONS PROCEDURE MEDICATIONS Versed 1 mg IV Fentanyl 50 mcg IV Versed 1 mg IV Versed 1 mg IV Oxygen: 2 L/min via nasal cannula Heparin diluted in 23cc Heparinized saline. Patient given 10cc IA of this solution. 03/18/2020 08:10: 43 Verapamil 2.5mg, Ntg 100mcgs, 2000 units of Heparin diluted in 23cc Heparinized saline. Patient give n 10cc IA of this solution. 03/18/2020 08:10:43 SUMMARY OF HEMODYNAMIC DATA Time AIR REST ECG 07:14:20 AO 146/109 (128) SA 08:13:41 LV 154/16, 30 08:21:56 LV 169/11, 37 08:23:11 LVp 160/9, 32 08:23:18 AOp 177/2 (101) 08:23:23 Signed By Eric Flores MD On 03/18/2020 08:54:06 Eric Flores MD
--- NOTE | 2020-03-18 10:00 | EKG12_ITS ---
Test Reason : Blood Pressure : / mmHG Vent. Rate : 075 BPM Atrial Rate : 075 BPM P-R Int : 192 ms QRS Dur : 112 ms QT Int : 392 ms P-R-T Axes : 052 006 000 degrees QTc Int : 437 ms Normal sinus rhythm Poor R wave progression Confirmed by ANNE EVANGELISTA, ERIC ([id number]), content editor ZAYRA BENDER ([id number]) on 03/22/2020 3:29:54 PM Referred By: Eric Flores Confirmed By:ERIC RODRÍGUEZ MD
--- NOTE | 2020-03-18 10:03 | CL.I_ITS ---
Patient Name: LATONYA ELDER Study Date: 03/18/2020 Performing: Dillon Seth MD Ht: 68 inches 173 cm : 1970 Wt: 234 lbs 106 kg Age: 49 Gender: male BSA: 2.19 PROCEDURE(S) PERFORMED QT51-DXB W OR WO PTCA, SINGLE CORONARY ARTERY CLINICAL PROFILE AND CO-MORBIDITIES Indications: Worsening Angina Heart Failure: None Stress/Imaging Stress/Image Study Performed: No CAD Presentations: Unstable angina. CONCLUSIONS Successful PTCA/WAN to mLCx RECOMMENDATIONS ASA Indefinitley Plavix for at least 12 months Follow up with Dr. Flores DESCRIPTION OF PROCEDURE The patient arrived to the procedure lab. The risks and benefits of the procedure as well as a full d escription of our services here and current unavailability of surgical backup were fully explained to the patient and/or their significant other prior to the catheterization. The Timeout was completed, verifying the correct patient and procedure. The patient's procedural site was prepped and draped in the usual fashion. Local anesthetic was given subcutaneously to right radial region with Lidocaine 2% Using a modified Seldinger technique,arterial access was obtained via the right radial artery, a 6Fr sheath was inserted. Right Coronary Artery selective angiography was then performed in multiple view s using a 5 Fr. 4.0 [place] catheter. Left Coronary Artery selective angiography was performed in multi ple views using a 5 Fr. 4.0 [place] catheter. Left Ventriculography was performed in SANTOS projection usi ng a 5 Fr. Pigtail catheter. LV to AO pullback pressures were then recorded.The images were reviewed and options discussed. A decision was then made to proceed with an Intervention, IVUS o r other adjunct procedure. XB3.0 Guide catheter was inserted and engaged into the LCA. Angiogram performed pre balloon dilat ation. BMW Guide wire was advanced to the Circumflex. 2.5x12 Emerge Balloon catheter was advanced acr oss lesion in the circumflex, mid. PTCA balloon inflated at 8 atms for 15 secs. 2.25x12 Synergy Drug Eluting stent was advanced across the lesion in the circumflex, mid. Angiogram performed post stent d eployment. 3.0x16 Synergy Drug Eluting stent was advanced across the lesion in the circumflex, mid. A ngiogram performed post stent deployment. The arterial sheath was pulled and a TR Band was applied for hemostasis INTERVENTION INFORMATION LESION SITE: Circumflex (Mid) Lesion Complexity: High/C, chronic total occlusion: No, lesion at bifurcation: No, thrombus present: No, lesion length: 16 mm, culprit lesion: Yes, Previously treated lesion: No Pre Stenosis: 80 % Pre intervention [place] flow: 3 PROCEDURE: Drug Eluting Stent with pre dilatation. Post Stenosis: 0 % Post intervention [place] flow: 3 Lesion Devices: Herrera .014 BMW [place] Straight 190cm Cardinal 6 Fr XB3.0 100cm Guide Catheter Reji Sci EMERGE MR 2.50x12 BALLOON Reji Sci Synergy MR WAN 2.25x12 Reji Sci Synergy MR WAN 3.00x16 COMPLICATIONS No Complications PROCEDURE MEDICATIONS Versed 1 mg IV Fentanyl 50 mcg IV Versed 1 mg IV Versed 1 mg IV Oxygen: 2 L/min via nasal cannula Heparin diluted in 23cc Heparinized saline. Patient given 10cc IA of this solution. 03/18/2020 08:10: 43 Heparin 7000 unit(s) IV 03/18/2020 08:55:52 Nitro 200 mcg IC 03/18/2020 09:08:29 Verapamil 2.5mg, Ntg 100mcgs, 2000 units of Heparin diluted in 23cc Heparinized saline. Patient give n 10cc IA of this solution. 03/18/2020 08:10:43 SUMMARY OF HEMODYNAMIC DATA Time AIR REST ECG 07:14:20 AO 146/109 (128) SA 08:13:41 LV 154/16, 30 08:21:56 LV 169/11, 37 08:23:11 LVp 160/9, 32 08:23:18 AOp 177/2 (101) 08:23:23 AO 172/134 (155) 08:56:34 AO 174/109 (137) 09:13:46 Signed By Dillon Seth MD On 03/18/2020 10:02:19 Dillon Seth MD
[2020-03-18] MEDS: 0.9% Saline Lock 10 ML Syringe IV (10:30)
[2020-03-18] MEDS: cloNIDine HCl 0.1 MG Tablet PO (10:33)
[2020-03-18] MEDS: hydroCHLOROthiazide 25 MG Tablet PO (10:33)
[2020-03-18] MEDS: 0.9% Normal Saline 1,000 ML 100 ML IV (10:33)
--- NOTE | 2020-03-18 10:43 | CRPHASE1_ITS ---
Patient Communication Former Patient:: Phase I PHII Cardiac Rehab Discussed with Patient:: Yes Guide to Cardiac Rehab Given to Patient:: Yes Cardiac Rehab Facility Choice List Given to Patient:: Yes - pt chooses [facility] Choice Program [facility] CR PHII:: Communication Given to CR, Refer to [facility] Aerosol Line Operator:: Sylwia Seth Refer Phase II Cardiac Rehab:: Yes Risk Factors/Lifestyle Height: 5 ft 8 in Weight:: 106.141 kg BMI: 35.6 Family History: Family History (Last Reviewed 10/14/19 @ 16:[address] Eric Flores MD) Sister Myocardial infarction, Onset Age: 41 Diabetes Mother COPD (chronic obstructive pulmonary disease) Asthma Rheumatoid arthritis Grandmother Diabetes Past Cardiac Illness: Previous PCI w/Stent Phase I Education Given On:: [place], Nutrition, Antiplatelet medication, CHF, Smoking cessation, Diabetes - Type I, Diabetes - Type II Issues Affecting Care:: None Knowledge of Condition:: Yes Hospital Course Cardiac Cath Date:: 03/18/20 Cardiac Rehabilitation Info Cardiac Rehabilitation Program Information: Cardiac Rehabilitation is important for patients like you who are recovering from a heart problem. Cardiac rehabilitation programs are recognized as integral to the continued care of the patient with coronary heart disease. The cardiac rehabilitation program is designed to optimize a patient's physical, psychological, and social functioning. Health resident care aid work in cardiac rehabilitation programs and assist you with getting the treatments you need to get stronger and healthier - like exercise, healthy eating habits, and medications. Cardiac rehabilitation has been show to help people with heart problems live longer and have better life enjoyment than people who do not go to cardiac rehabilitation. Please contact the Cardiac Rehabilitation Program at [facility] at in two weeks if you have not heard from them.
--- NOTE | 2020-03-18 10:46 | CRPH1.INSTRU ---
General Education CAD and cardiac anatomy and function:: Patient communicates acknowledgment Explanation of diagnoses and procedures:: Patient communicates acknowledgment Sign/Symptoms of ME:: Patient communicates acknowledgment Antiplatelet therapy: Patient communicates acknowledgment Proper use of NTG-SL: Not instructed Emergency procedures and activation of EMS: Patient communicates acknowledgment Compliance of all prescribed medications: Patient communicates acknowledgment Smoking Nicotine/Smoking Response Code:: Patient communicates acknowledgment Dyslipidemia Dyslipidemia Response Code:: Patient communicates acknowledgment Overweight/Obesity Patient Overweight/Obesity Risk Factors Are:: Obesity - > or = 30 Recommendations Include:: Weight loss of 5-10%, Reduced calorie diet, Exercise 5-7 times/week Overweight/Obesity:: Patient communicates acknowledgment Hypertension Hypertension:: Patient communicates acknowledgment Heart Disease Heart Disease Response Code:: Patient communicates acknowledgment Diabetes Diabetes:: Patient communicates acknowledgment Metabolic Syndrome Metabolic Syndrome Response Code:: Patient communicates acknowledgment Sedentary Sedentary Response Code:: Patient communicates acknowledgment Stress Stress Response Code:: Patient communicates acknowledgment
[2020-03-18] MEDS: Albuterol 2.5 MG/3 ML VIAL.NEB. INHALATION (13:12)
--- NOTE | 2020-03-18 16:07 | PCM.PN.BLA ---
Progress Note Aspirin at discharge? Yes, aspirin 81 mg p.o. daily Antiplatelet therapy at discharge? Yes, Plavix 75 mg p.o. daily MIO/ARB at discharge? Yes, lisinopril 20 mg p.o. twice daily Statin at discharge? Yes, atorvastatin 40 mg p.o. daily Beta-israel at discharge? Yes, metoprolol tartrate 100 mg p.o. twice daily STROKE Vital Signs/Narrative: Vital Signs Pulse Resp Pulse Ox 03/18/20 15:00 90 03/18/20 13:12 89 20 H 92
--- NOTE | 2020-03-18 16:08 | PCM.DC.CCA ---
Discharge Diet: Low fat/ Low Cholesterol Discharge Activity: Return to Normal Activity May shower in (days): 1 - No tub baths for 5 days May resume sexual activity in: 1-2 weeks Lifting Restrictions: No heavy lifting greater than 10 pounds for 3 days Call your doctor if your incision/area has: Continuous Slow Oozing, Sudden Increased Bleeding, Increased Pain/ Swelling, Increased Redness, Foul Smelling Discharge, Swelling at the incision site Call your doctor if you observe: Fever of 101 or Higher, Shortness of breath, Chest pain Remove Dressing in (days):: 1 Cleanse incision/area with: Soap & Water Additional Instructions: You continue with Aspirin and Plavix therapy. The goal is to remain on Plavix and Aspirin together for at least 1 year. If anyone asks you to stop your Plavix, please call the [facility] first at [phone]. He will be contacted by the [facility] for an office appointment in approximately 4 weeks. If you have any questions or concerns, please call the [facility] at [phone]. Allergies/Adverse Reactions: Allergies amoxicillin trihydrate [From Augmentin] Allergy (Verified 02/06/20 10:15) Rash potassium clavulanate [From Augmentin] Allergy (Verified 02/06/20 10:15) Rash codeine Adverse Reaction (Verified 02/06/20 10:15) Nausea Medications to take at Discharge Budesonide/Formoterol 80-4.5 [Symbicort 80-4.5 Mcg Inhaler] 2 puff INHALATION BID 12/09/16 Aspirin 81 mg PO DAILY #90 tab.chew 12/12/16 cholecalciferol (vitamin D3) 1,250 mcg (50,000 unit) tablet 50,000 unit PO QWEEK 02/20/19 Metformin HCl 500 mg PO BID #0 02/22/19 clonidine HCl 0.1 mg tablet 0.1 mg PO BID #60 tab 04/15/19 amlodipine 10 mg tablet 10 mg PO DAILY #90 tab 10/14/19 atorvastatin 40 mg tablet 40 mg PO QHS #90 tab 10/14/19 clopidogrel 75 mg tablet 75 mg PO DAILY #90 tab 10/14/19 hydrochlorothiazide 25 mg tablet 25 mg PO DAILY #90 tab 10/14/19 lisinopril 20 mg tablet 20 mg PO BID #180 tab 10/14/19 metoprolol tartrate 100 mg tablet 100 mg PO BID #180 tab 10/14/19 isosorbide mononitrate 60 mg tablet,extended release 24 hr 60 mg PO DAILY #60 tab 02/06/20 Primary Care Physician: Hesham Lao MD [Primary Care Provider] - Test Results: Test results from this visit will be discussed in further detail at your follow-up appointment, if applicable. Please Follow Up With: You will be contacted by [facility] for appointment in appr Proposed Discharge Date: 03/18/20 Cardiac Rehabilitation Info Cardiac Rehabilitation Program Information: Cardiac Rehabilitation is important for patients like you who are recovering from a heart problem. Cardiac rehabilitation programs are recognized as integral to the continued care of the patient with coronary heart disease. The cardiac rehabilitation program is designed to optimize a patient's physical, psychological, and social functioning. Health medicare compliance auditor work in cardiac rehabilitation programs and assist you with getting the treatments you need to get stronger and healthier - like exercise, healthy eating habits, and medications. Cardiac rehabilitation has been show to help people with heart problems live longer and have better life enjoyment than people who do not go to cardiac rehabilitation. Please contact the Cardiac Rehabilitation Program at [facility] at in two weeks if you have not heard from them.
--- NOTE | 2020-03-18 16:11 | PN.CARD_ITS ---
Subjectve: Patient noted to be doing well stable Objective: Vital Signs Temp Pulse Resp BP Pulse Ox 98.2 F 90 20 H 159/90 H 92 03/18/20 11:45 03/18/20 15:00 03/18/20 13:12 03/18/20 11:45 03/18/20 13:12 Oxygen Delivery Method Room Air Weight: 234 lb 0.013 oz Body Mass Index (BMI) 35.6 General: Awake, Alert, Oriented x 3 HEENT: PERRL, EOMI, Sclera Non Icteric Neck: Supple, Good ROM, No Lymph Node Enlargement Lungs: Clear to auscultation Cardiovascular: Regular Rhythm, Normal S1, Normal S2, No Murmurs, No Rubs, No Gallops Vascular: No Carotid Bruits, Normal Femoral Pulses, Normal Radial Pulses, Normal Dorsalis Pedal Pulse, Normal Posterior Tibial Pulses Abdomen: Bowel Sounds Present, Soft, Non Tender, No HSM, No Organomegaly Extremities: No Cyanosis, No Clubbing, No edema Lymphatic: No Lymph Node Enlargement Neurological: No Focal Motor or Sensory Deficit Rhythm: EKG: ECHO: Stress Test: Cardiac Cath: PCI: CT Surgery: Holter monitor: EPS: PPM: CXR: Chest CT Scan: Medical Necessity - Tobacco Use Smoking Status: Current every day smoker Tobacco Use: Cigarettes Assessment/Plan 1. Recurrent chest discomfort in a patient with known coronary artery disease. * Patient underwent PCI today successfully tolerated the procedure well. * Post procedure EKG demonstrated no changes * Radial site appears to be stable and patient has ambulated * Will discharge for outpatient follow-up * Patient will be called tomorrow for a follow-up and appointment 2. Hypertension His blood pressure does not appear to be very well controlled. He is on clonidine, amlodipine, hydrochlorothiazide, lisinopril, metoprolol, and isosorbide. I would recommend that he be discharged on a higher dose of clonidine of 0.2 mg twice a day. 3. Hyperlipidemia * Patient will continue with aggressive risk factor modification. * * Thank you for allowing me to participate in the care of your patient. Please don't hesitate to call if any issues arise.
== END 2020-03-18 16:32 | disposition home or self-care (01) ==
LOC: CLSP 06:53 → PCU 03-19 07:57
PROVIDERS: PCP Family Medicine; Referring Provider Internal Medicine Cardiovascular Disease; Visit Provider Internal Medicine Cardiovascular Disease
DX: I25.10 Atherosclerotic heart disease of native coronary artery without angina pectoris (principal); I10 Essential (primary) hypertension; I25.2 Old myocardial infarction; E78.5 Hyperlipidemia, unspecified; Z95.5 Presence of coronary angioplasty implant and graft; Z79.82 Long term (current) use of aspirin; Z79.84 Long term (current) use of oral hypoglycemic drugs; Z79.02 Long term (current) use of antithrombotics/antiplatelets; Z79.899 Other long term (current) drug therapy; F17.210 Nicotine dependence, cigarettes, uncomplicated
CPT/HCPCS: 36415; 80048; 85025; 92928; 93005; 93458; 94640; 99152; 99153; 99251; J7030; J7040; Q9967; A4216; C1725; C1769; C1874; C1887; C1894; C9600; G0463

== ENCOUNTER 2020-11-19 12:30 | Emergency (ER) | payer OTHER, SELFPAY ==
[2020-03-18 10:45] VITALS: BMI 35.6
[2020-04-14 15:52] VITALS: BMI 36.8
[2020-11-19 12:30] VITALS: BP 149/110; PULSE 78; RESP 18; TEMP 35.6; O2SAT 97; BMI 35.4
--- NOTE | 2020-11-19 12:35 | CT_ITS ---
STUDY: CT ABDOMEN AND PELVIS WITHOUT CONTRAST REASON FOR EXAM: Male, 50 years old. RIGHT FLANK PAIN,DIFFICULTY URINATING STARTED THIS AM -- SURG-APPY RADIATION DOSAGE (If Supplied By Facility): CTDIvol = ( 14.23 ) mGy, DLP = ( 789.21 ) mGycm TECHNIQUE: Transaxial images were obtained from the dome of the diaphragm to the symphysis pubis without oral contrast, and without intravenous contrast. Sagittal and coronal images were reconstructed. Individualized dose optimization techniques were used for this CT. COMPARISON: None. FINDINGS: The visualized lung bases are unremarkable. The visualized portions of the heart are within normal limits. There is decreased attenuation of the liver consistent with steatosis. Normal gallbladder and extrahepatic biliary system. Normal spleen. Normal pancreas. Normal bilateral adrenal glands. Mild right hydronephrosis and stranding of the perinephric fat but no renal or ureteral stone. Findings may be secondary to recently passed stone or right-sided pyelonephritis. 3 mm nonobstructing stone of the proximal left ureter. Normal visualized stomach. Normal small intestine. Normal colon. There are surgical clips in the region of the appendix consistent with a prior appendectomy. Normal abdominal aorta. Normal inferior vena cava. Normal retroperitoneum. Normal urinary bladder. There are prostatic calcifications. Normal abdominal wall. Normal osseous structures. CT/Abdomen/Pelvis without Cont IMPRESSION: 1. Mild right hydronephrosis and the stranding of the perinephric fat but no renal or ureteral stone. Findings may be secondary to recently passed stone or right-sided pyelonephritis. 2. 3 mm nonobstructing stone of the proximal left ureter. 3. Fatty infiltration of the liver. Electronically Signed: Jose Daniel Adler MD at 13:51 EST Tel , Service support ,
--- NOTE | 2020-11-19 12:35 | ED.VISSUMM ---
- ER Visit Summary Date of Service: 11/19/20 Chief Complaint: Right flank pain History of Present Illness: The patient is a [address] Lao. He reports he has right flank pain that began this morning. The sharp pain is 10 on 10 at worst 9-10 currently. Nothing makes this better or worse. Is been nausea and vomited once. No blood in his emesis. He had the urge to urinate. He denies any dysuria or hematuria. No diarrhea. His last bowel was yesterday. Physical Examination: Vitals: Stable. Afebrile. General: Well-nourished and well-developed. Head: Normocephalic atraumatic. Neck: Supple, no lymphadenopathy. No JVD. Nontender. Cardiovascular: Regular rate and rhythm. No murmurs. Respiratory: No respiratory distress. Clear to auscultation bilaterally. Abdominal: Soft, nontender, nondistended, normal bowel sounds. No guarding, rebound, or peritoneal signs. Back: Nontender. Extremities: Nontender, no edema. Skin: Normal color, no rash. Neurologic: Alert and oriented ?3. Cranial nerves II through XII are intact. Normal strength and sensation. Psych: Normal affect. Test Results: Urinalysis shows leukocytes and occult blood. Micro is negative for infection. Clinical Impression(s) from Imaging Studies Abdomen/Pelvis CT 11/19/20 12:35 IMPRESSION: 1. Mild right hydronephrosis and the stranding of the perinephric fat but no renal or ureteral stone. Findings may be secondary to recently passed stone or right-sided pyelonephritis. 2. 3 mm nonobstructing stone of the proximal left ureter. 3. Fatty infiltration of the liver. Electronically Signed: Jose Daniel Adler MD at 13:51 EST Tel , Service support , Emergency Department Course and Treatment: Patient had an IV placed. He is given morphine, Zofran, and Toradol IV. He is resting more comfortably. Treatment Plan: It is unclear whether the patient has passed the stone or it may be a stricture. However, he is now resting comfortably. He will be discharged with Zofran and [place]. Instructed to follow-up with Dr. Rosales in 1 week if not improving. Return to the emergency department for any worsening symptoms. Disposition: To home in improved and stable condition. Impression: 1. Right flank pain, acute. This note was generated with [employer] dictation software. It may contain incorrect words, spelling, and punctuation that were not noted in review of the chart prior to signing ED Disposition - Plan for ED Patient: Instructions: ED Kidney Stone, Passed Prescriptions: Hydrocodone Bitart/Apap 5-325 [[place] 5MG-325MG] 1 tablet PO Q4H PRN PRN 2 Days #10 tablet PRN Reason: Pain Ondansetron [Zofran Odt] 4 mg PO Q8H PRN PRN #10 tablet PRN Reason: Nausea Referrals: Joey Rosales MD [STAFF PHYSICIAN] - 1 Week
[2020-11-19] MEDS: 0.9% Normal Saline 1,000 ML 250 ML IV (12:55)
[2020-11-19] MEDS: Ketorolac 15 MG/ML Vial IV (12:55)
[2020-11-19] MEDS: Morphine 4 MG/ML Syringe IV (12:55)
[2020-11-19] MEDS: Ondansetron 4 MG/2 ML Vial IV (12:55)
[2020-11-19 13:09] LABS: Red Blood Cells-Urine 0 SEEN /hpf (0-5)
[2020-11-19 13:10] LABS: Color, Urine Yellow (Yellow); Glucose, Dipstick Normal (Normal); Ketone-Dipstick Negative (Negative); Leukocyte Esterase-Dipstick 100 /ul (Negative); Nitrite-Dipstick Negative (Negative); Occult Blood-Urine 50 /ul (Negative); Protein-Dipstick 30 mg/dl (Negative); Urine Bilirubin Dipstick Negative (Negative); Urine Clarity Sl. Cloudy (Clear); Urine Urobilinogen Normal (Normal)
[2020-11-19 13:16] LABS: Bacteria RARE /hpf (None Seen); Hyaline Cast 0-5 SEEN /lpf (0-5); Mucous, Urine RARE /hpf (<or=2+); Squamous Epithelial Cells - UA 0-5 SEEN /hpf (0-5); White Blood Cells 0-5 SEEN /hpf (0-5)
[2020-11-19 14:23] VITALS: BP 137/74; PULSE 72; RESP 16; O2SAT 95
== END 2020-11-19 14:26 | disposition home or self-care (01) ==
LOC: ED 12:56
PROVIDERS: Emergency Provider Emergency Medicine; PCP Family Medicine
DX: R10.9 Unspecified abdominal pain (principal); R11.2 Nausea with vomiting, unspecified; R35.0 Frequency of micturition; I10 Essential (primary) hypertension; I25.10 Atherosclerotic heart disease of native coronary artery without angina pectoris; J44.9 Chronic obstructive pulmonary disease, unspecified; Z95.5 Presence of coronary angioplasty implant and graft; Z79.82 Long term (current) use of aspirin; Z79.02 Long term (current) use of antithrombotics/antiplatelets; Z79.899 Other long term (current) drug therapy; F17.200 Nicotine dependence, unspecified, uncomplicated
CPT/HCPCS: 74176; 81001; 96361; 96374; 96375; 99283; J2405

== ENCOUNTER 2020-11-22 01:12 | Inpatient (IN) | payer OTHER, SELFPAY ==
[2020-03-18 10:45] VITALS: BMI 35.6
[2020-11-22] VITALS (31 sets, daily range): BP systolic 130–178; BP diastolic 67–115; PULSE 63–80; RESP 16–27; TEMP 36.7–37.1; O2SAT 90–100; BMI 31.7; BMI 31.8; BMI 35.2
--- NOTE | 2020-11-22 01:22 | ED.RN ---
RN CALLED FOR EKG, PULLED OLD EKGS FOR
--- NOTE | 2020-11-22 01:35 | EKG12_ITS ---
Test Reason : CP Blood Pressure : / mmHG Vent. Rate : 066 BPM Atrial Rate : 066 BPM P-R Int : 178 ms QRS Dur : 102 ms QT Int : 394 ms P-R-T Axes : 066 025 -29 degrees QTc Int : 413 ms Normal sinus rhythm Anteroseptal infarct , age undetermined T wave abnormality, consider inferior ischemia Abnormal ECG Confirmed by BIRGIT EVANGELISTA, GENE ([id number]), international editorial producer EVELIO CURRY ([id number]) on 11/23/2020 8:55:39 AM Referred By: Evelina Vazquez Confirmed By:GENE GENAO MD
--- NOTE | 2020-11-22 01:35 | RAD_ITS ---
HISTORY: c/o mid chest pain x 45 mins ADDITIONAL HISTORY: None provided. EXAMINATION/TECHNIQUE: XR Chest 1 View AP/PA Number of images including paperwork: 2 COMPARISON: 02/06/2020 FINDINGS: LUNGS AND PLEURA: No consolidation, mass or pleural effusion. CARDIAC SILHOUETTE: Stably enlarged. MEDIASTINUM AND BEKA: Stable. UPPER ABDOMEN: Unremarkable. SKELETON AND SOFT TISSUES: No acute skeletal findings. OTHER DEVICES AND HARDWARE: Cervical spine hardware. RAD/Chest 1 View (Portable) IMPRESSION: No acute cardiopulmonary abnormality. at 0216 Reported and signed by: Rachael Huynh MD Electronically Signed: Rachael Huynh MD at 2:16 EST Tel , Service support ,
--- NOTE | 2020-11-22 01:40 | ED.DCSUM_ITS ---
History of Present Illness Chief Complaint: Chest Pain Informant: Patient Onset: - - 30 min Activity at onset: Sleep Timing: Continuous Quality: Aching - and cramping Location: Substernal - w/ radiation into mid-upper back, neck/jaw Current Severity: Mild Maximum Severity: Severe Worsened By: Nothing. Not Worsened By: Breathing Relieved By: Nothing - in particular; took no meds [employer] Associated Symptoms: Nausea, Diaphoresis, Dyspnea. Negative for: Vomiting, Cough, Fever, Lightheadedness, Palpitations Narrative: 50-year-old male with a history of 5 prior stents, continues to be a heavy smoker, presents just after acute onset of severe substernal nonpleuritic chest discomfort that woke him from sleep. He states this felt like his prior heart pain. His last stent was placed about 2 years ago, he denies having a stress test since then. He is feeling much better now. He takes a baby aspirin and clopidogrel every morning, yesterday morning was the last aspirin that he took. Prior Similar Symptoms: Yes, With Prior NV, With Prior Angina CVD Risk Factors: Hypertension, Hypercholesterolemia, Smoking - Past Medical History (1) Atherosclerosis of [place] coronary artery of [place] heart without angina pectoris Status: Chronic Comment: WAN-OM2 w/ 2.75 x 14 mm Resolute Integrity 12/11/2016; WAN Mid D1 w/ 2.5 x 18 mm Resolute Integrity and WAN Prox LAD w/ 3.0 x 15 mm Resolute Integrity 02/21/19 (2) Essential hypertension Status: Chronic (3) History of non-ST elevation myocardial infarction (NSTEMI) Status: Chronic Comment: 11/2016; 02/20/19 (4) Hyperlipidemia Status: Chronic (5) Nicotine dependence Status: Chronic (6) History of coronary artery stent placement Status: Resolved Comment: WAN-OM2 w/ 2.75 x 14 mm Resolute Integrity 12/11/2016 WAN Mid D1 w/ 2.5 x 18 mm Resolute Integrity and WAN Prox LAD w/ 3.0 x 15 mm Resolute Integrity 02/21/19; PCI-WAN-Mid LCx w/ 2.25 x 12 mm Synergy MR Stent and 3.0 x 16 mm Synergy MR Stent 03/18/2020 Past Medical History - Allergies and Home Meds Allergies/Adverse Reactions: Allergies amoxicillin trihydrate [From Augmentin] Allergy (Verified 11/22/20 01:16) Rash potassium clavulanate [From Augmentin] Allergy (Verified 11/22/20 01:16) Rash codeine Adverse Reaction (Verified 11/22/20 01:16) Nausea Primary Care Physician: Hesham Lao MD [Primary Care Provider] - Surgical History: appendectomy, herniorrhaphy, - - Cervical spine fusion surgery. Smoking Status: Current every day smoker - Family History Maternal Family History: Family History (Last Reviewed 10/14/19 @ 16:[address] Eric Flores MD) Sister Myocardial infarction, Onset Age: 41 Diabetes Mother COPD (chronic obstructive pulmonary disease) Asthma Rheumatoid arthritis Grandmother Diabetes Family History: Reports: No pertinent history Paternal Family History: Family History (Last Reviewed 10/14/19 @ 16:[address] Eric Flores MD) Sister Myocardial infarction, Onset Age: 41 Diabetes Mother COPD (chronic obstructive pulmonary disease) Asthma Rheumatoid arthritis Grandmother Diabetes Family History: Reports: Heart Disease, Hypertension Sibling Family History: Family History (Last Reviewed 10/14/19 @ 16:[address] Eric Flores MD) Sister Myocardial infarction, Onset Age: 41 Diabetes Mother COPD (chronic obstructive pulmonary disease) Asthma Rheumatoid arthritis Grandmother Diabetes Family History: Reports: Heart Disease, - - His sister at age of 41 because of heart attack. Review of Systems General: Reports: Malaise, Sweats. Denies: Chills, Fever Eyes: Denies: Visual changes - bilaterally, Diplopia ENT: Denies: Rhinorrhea, Sore throat Cardiovascular: Reports: Chest pain. Denies: Palpitations Respiratory: Reports: Dyspnea - gone now. Denies: Cough, Dyspnea on exertion Gastrointestinal: Reports: Nausea. Denies: Abdominal pain, Vomiting, Diarrhea, Melena, Hematochezia Genitourinary: Denies: Dysuria, Hematuria, Frequency Musculoskeletal: Reports: Neck pain, Back pain, Swelling - BLE, chronic, unchanged. Denies: Myalgias, Extremity Pain Skin: Denies: Rash, Wounds Neurological: Denies: Headache, Weakness, Numbness Physical Exam Vital Signs/Narrative: Vital Signs Temp Pulse Resp BP Pulse Ox 11/22/20 01:13 98.6 F 66 20 H 178/109 H 94 11/22/20 01:12 70 27 H 177/112 H 94 Inital Vital Signs reviewed: Yes General: Well nourished, Well developed, No Acute Distress Head: Normocephalic, Atraumatic Eyes: Perrl, EOMI ENT: Moist mucous membranes, No rhinorrhea Neck: Supple, Nontender Cardiovascular: Regular rate, Regular rhythm, No murmurs Respiratory: No distress, CTA bilaterally, Chest nontender Abdomen: Soft, Nontender, Nondistended, Normal bowel sounds Back: Nontender, Normal Inspection Extremities: Nontender, Edema - 1+ BLE to midshins, bilat. Negative for: Calf Tenderness Skin: Normal color, No rash, No Trauma Neurological: Alert, Oriented x3, Cranial nerves II-XII grossly intact, Normal Strength, Normal Sensation, Normal Gait Psychological: Normal affect, Normal Mood Diagnostic/Tx/Re-eval Impressions Chest X-Ray 11/22/20 01:35 IMPRESSION: No acute cardiopulmonary abnormality. at 0216 Reported and signed by: Rachael Huynh MD Electronically Signed: Rachael Huynh MD at 2:16 EST Tel , Service support , 11/22/20 01:35 Chest 1 View (Portable) [RAD] Stat Laboratory Results 11/22/20 11/22/20 11/22/20 01:20 01:20 01:20 WBC 12.0 H RBC 5.35 Hgb 15.8 Hct 47.3 MCV 88.4 MCH 29.5 MCHC 33.4 RDW Std Deviation 41.8 RDW Coeff of Narcisa 13.0 Plt Count 315 MPV 10.6 Immature Gran % (Auto) 0.400 Neut % (Auto) 48.1 Lymph % (Auto) 38.5 [place] % (Auto) 10.5 H Eos % (Auto) 1.8 Baso % (Auto) 0.7 Absolute Neuts (auto) 5.8 Absolute Lymphs (auto) 4.62 H Nucleated RBC % 0 APTT 23.2 L Sodium 141 Potassium 3.8 Chloride 105 Carbon Dioxide 30.0 Anion Gap 6 BUN 16 Creatinine 1.16 Estim Creat Clear Calc 115.71 Est GFR (MDRD) Af Amer 86 Est GFR (MDRD) Non-Af 71 BUN/Creatinine Ratio 13.8 Glucose 159 H Calcium 9.4 Troponin I 0.257 H - Rhythm Strip Rhythm Strip: Sinus Rhythm Rate: 66 Ectopy: None - EKG Initial EKG Interpretation: Sinus Rhythm, No Acute Injury Pattern, Inverted T-Waves - inferiorly, - - ant-sept Q waves. no acute ST segment deviations. Prior: Unchanged Treatment: Aspirin, Heparin IV, NTG SL, NTG Topical Repeat Eval: Pain Free [place] Risk: >/= 3RF, H/O CAD, ASA within 7 days, Elevated Enzymes Score: 4 - Medical Decision Making After 2 nitroglycerin, the patient's pain is completely resolved. His enzymes are nonspecifically elevated, consistent with acute coronary syndrome. Chest x- ray 1 view on my interpretation is normal, including a normal mediastinum. Discussed with hospitalist and cardiology, nitroglycerin paste placed on his chest, Dr. Flores recommends Lovenox instead of heparin, will admit to PCU. Patient adamantly refuses Lovenox, now or while he is an inpatient. He understands the medical literature supports this over heparin. He demands that we start him on heparin instead. Critical care time (excluding procedures): 30-74 minutes - 35 minutes, including time spent discussing with patient, consultants, arrange admission, performing direct patient care to bedside. ED Disposition - Plan for ED Patient: Disposition: Acute Care [facility] Diagnosis: Unstable angina Referrals: Hesham Lao MD [Primary Care Provider] -
[2020-11-22 01:42] LABS: Absolute Lymphocyte Count 4.62 X10^3/uL (0.83-4.51); Absolute Neutrophil Count 5.8 X10^3/uL (2.0-7.7); Basophil# 0.08 X10^3/uL; Basophil% 0.7 % (0-1); Eosinophil# 0.21 X10^3/uL; Eosinophils% 1.8 % (0-5); Hematocrit 47.3 % (40-54); Hemoglobin 15.8 g/dL (13.0-16.5); Lymphocyte # 4.62 X10^3/ul (4.0); Lymphocyte % 38.5 % (19-41); Mean Corp Hgb Conc 33.4 g/dL (32-36); Mean Corpuscular Hgb 29.5 pg (27.0-32.0); Mean Corpuscular Volume 88.4 fL (80-94); Mean Platelet Vol. 10.6 fl (6.2-12.0); Monocyte# 1.26 X10^3/uL; Monocyte% 10.5 % (0-10); NRBC Flagged by Analyzer 0 % (0-5); Neutrophil # 5.77 X10^3/uL (2.7-7.7); Neutrophil % 48.1 % (47-70); Platelet Count 315 K/mm3 (150-450); RBC Distribution Width SD 41.8 fl (35.1-43.9); Red Blood Count 5.35 M/mm3 (4.6-6.2)
[2020-11-22] MEDS: Aspirin 81 MG TAB.CHEW 324 MG PO (01:44)
[2020-11-22] MEDS: 0.9% Normal Saline 1,000 ML 150 ML IV (01:44)
[2020-11-22 01:46] LABS: Partial Thromboplast Time 23.2 Seconds (24.1-36.2)
[2020-11-22] MEDS: Nitroglycerin SL (ED/IMG/CATH) 0.4 MG TABLET SUBLINGUAL ×2 (01:47→01:52)
[2020-11-22 02:07] LABS: Anion Gap 6 (5-15); BUN 16 mg/dL (7-18); BUN/Creat Ratio 13.8 RATIO (10-20); Calcium,Total 9.4 mg/dL (8.5-10.1); Chloride 105 mmol/L (98-107); Creatinine, Serum 1.16 mg/dL (0.70-1.30); EST Glomerular Filtration Rate 71 mL/min (>60); Est Glom Filt Rate - Afr Amer 86 mL/min (>60); Estimated Creatinine Clearance 115.71 ml/min; Glucose 159 mg/dL (74-106); Potassium 3.8 mmol/L (3.5-5.1); Sodium Level 141 mmol/L (136-145)
--- NOTE | 2020-11-22 02:09 | PCM.HP.STD ---
Problem List (1) Chest pain Status: Acute Qualifiers: Chest pain type: unspecified Qualified Code(s): R07.9 - Chest pain, unspecified (2) Elevated troponin Status: Acute (3) Chronic obstructive pulmonary disease (COPD) Status: Chronic Qualifiers: COPD type: unspecified COPD Qualified Code(s): J44.9 - Chronic obstructive pulmonary disease, unspecified (4) Tobacco use Status: Chronic (5) Obesity (BMI 30.0-34.9) Status: Chronic (6) Atherosclerosis of [place] coronary artery of [place] heart without angina pectoris Status: Chronic Comment: WAN-OM2 w/ 2.75 x 14 mm Resolute Integrity 12/11/2016; WAN Mid D1 w/ 2.5 x 18 mm Resolute Integrity and WAN Prox LAD w/ 3.0 x 15 mm Resolute Integrity 02/21/19 (7) History of coronary artery stent placement Status: Resolved Comment: WAN-OM2 w/ 2.75 x 14 mm Resolute Integrity 12/11/2016 WAN Mid D1 w/ 2.5 x 18 mm Resolute Integrity and WAN Prox LAD w/ 3.0 x 15 mm Resolute Integrity 02/21/19; PCI-WAN-Mid LCx w/ 2.25 x 12 mm Synergy MR Stent and 3.0 x 16 mm Synergy MR Stent 03/18/2020 (8) Essential hypertension Status: Chronic (9) Hyperlipidemia Status: Chronic Qualifiers: Hyperlipidemia type: unspecified Qualified Code(s): E78.5 - Hyperlipidemia, unspecified (10) Nicotine dependence Status: Chronic Qualifiers: Nicotine product type: cigarettes Substance use status: uncomplicated Qualified Code(s): F17.210 - Nicotine dependence, cigarettes, uncomplicated History of Present Illness Date of Admission: 11/22/20 Chief Complaint: Chest pain The patient is a 50 y/o M w/ PMHx: Chronic COPD, HTN, HLD, Tobacco use, CAD s/p PCI x5, Chronic back pain who presents to the [facility] ED on 11/22/20 with history of onset chest discomfort awakening him from sleep approximately 30 minutes prior to arrival noted to be continuous and aching in nature in the substernal region with radiation into his mid upper back as well as into his bilateral neck and jaw ranging from mild to severe with associated nausea, dyspnea and diaphoresis prompting ED presentation. He noted that initial onset his chest pain was rated 10 out of 10 in severity however currently it is completely resolved and 0 out of 10. Work-up in the ED included T 98.6, heart rate 66, BP 178/109, respiratory rate 20, 94% on room air with improvement in blood pressure to 130/76 with nitroglycerin, CBC with WC 12, hemoglobin 15.8, platelets 315 with increased lymphocytes, PTT 23.2, BMP with glucose 159, troponin 0.257 with most recently noted prior 02/21/2019 0.337 during that prior admission, EKG with sinus rhythm with inverted T waves inferiorly unchanged from prior, chest x-ray acute cardiopulmonary findings. In the ED patient ministered Zofran, aspirin 324 mg x 1, nitroglycerin. Physician did discuss case with cardiology with planned evaluation and cardiac catheterization with requested n.p.o. status and heparin bolus. Past Medical History Past Medical History (Chronic Problems): Chronic Problems (Last Reviewed 10/14/19 @ 16:[address] Eric Flores MD) Chronic obstructive pulmonary disease (COPD) (Chronic) Tobacco use (Chronic) Obesity (BMI 30.0-34.9) (Chronic) Atherosclerosis [place] coronary artery of [place] heart without angina pectoris (Chronic) WAN-OM2 w/ 2.75 x 14 mm Resolute Integrity 12/11/2016; WAN Mid D1 w/ 2.5 x 18 mm Resolute Integrity and WAN Prox LAD w/ 3.0 x 15 mm Resolute Integrity 02/21/19 History of non-ST elevation myocardial infarction (NSTEMI) (Chronic 02/20/19) 11/2016; 02/20/19 Essential hypertension (Chronic) Hyperlipidemia (Chronic) Nicotine dependence (Chronic) Medical History: Medical History (Last Reviewed 10/14/19 @ 16:[address] Eric Flores MD) Atherosclerosis [place] coronary artery of [place] heart without angina pectoris (Chronic) I25.10 WAN-OM2 w/ 2.75 x 14 mm Resolute Integrity 12/11/2016; WAN Mid D1 w/ 2.5 x 18 mm Resolute Integrity and WAN Prox LAD w/ 3.0 x 15 mm Resolute Integrity 02/21/19 History of non-ST elevation myocardial infarction (NSTEMI) (Chronic) Onset Date: 02/20/19 I25.2 11/2016; 4/4/19 Essential hypertension (Chronic) I10 Hyperlipidemia (Chronic) E78.5 Nicotine dependence (Chronic) F17.200 COPD (chronic obstructive pulmonary disease) J44.9 Non-ST elevation ND (NSTEMI) (Resolved) I21.4 Allergies amoxicillin trihydrate [From Augmentin] Allergy (Verified 11/22/20 01:16) Rash potassium clavulanate [From Augmentin] Allergy (Verified 11/22/20 01:16) Rash codeine Adverse Reaction (Verified 11/22/20 01:16) Nausea Home Medications: Ambulatory Orders Medication Instructions Recorded Budesonide/Formoterol 80-4.5 2 puff INHALATION BID 12/09/16 [Symbicort 80-4.5 Mcg Inhaler] Aspirin 81 mg PO DAILY #90 tab.chew 12/12/16 cholecalciferol (vitamin D3) 1,250 50,000 unit PO QWEEK 02/20/19 mcg (50,000 unit) tablet clonidine HCl 0.2 mg tablet 0.2 mg PO BID #60 tab 03/19/20 isosorbide mononitrate 60 mg 60 mg PO DAILY #60 tab 03/19/20 tablet,extended release 24 hr amlodipine 10 mg tablet 10 mg PO DAILY #90 tab 10/20/20 atorvastatin 40 mg tablet 40 mg PO QHS #90 tab 10/20/20 clopidogrel 75 mg tablet 75 mg PO DAILY #90 tab 10/20/20 hydrochlorothiazide 25 mg tablet 25 mg PO DAILY #90 tab 10/20/20 lisinopril 20 mg tablet 20 mg PO BID #180 tab 10/20/20 metoprolol tartrate 100 mg tablet 100 mg PO BID #180 tab 10/20/20 Ondansetron [Zofran Odt] 4 mg PO Q8H PRN PRN #10 tab 11/19/20 Surgical History: Surgical History (Last Updated 03/22/20 @ 09:50 by Crista Liang) History of coronary artery stent placement (Resolved) Onset Date: 03/18/20 Z95.5 WAN-OM2 w/ 2.75 x 14 mm Resolute Integrity 12/11/2016 WAN Mid D1 w/ 2.5 x 18 mm Resolute Integrity and WAN Prox LAD w/ 3.0 x 15 mm Resolute Integrity 02/21/19; PCI-WAN-Mid LCx w/ 2.25 x 12 mm Synergy MR Stent and 3.0 x 16 mm Synergy MR Stent 03/18/2020 History of appendectomy Z90.49 History of hernia repair Onset Date: ~2008 Z98.890, Z. History of neck surgery Z98.890 X2 fusion History of umbilical hernia repair Onset Date: ~1971 Z98.890, Z.19 Surgical History: appendectomy, herniorrhaphy, - - Cervical spine fusion surgery x 2, Hernia repair, PCI x 5, appendectomy. Psychiatric History: No pertinent psych hx Lives: Spouse/ Significant Other Smoking Status: Current every day smoker - Ongoing 1 pack/day cigarette tobacco usage since he was a teenager. Tobacco Use: Cigarettes Alcohol: Occasional Drugs: None - *Family History Maternal Family History: Family History (Last Reviewed 10/14/19 @ 16:[address] Eric Flores MD) Sister Myocardial infarction, Onset Age: 41 Diabetes Mother COPD (chronic obstructive pulmonary disease) Asthma Rheumatoid arthritis Grandmother Diabetes History Items: Pulmonary Disease, - - Rheumatoid arthritis. Paternal Family History: Family History (Last Reviewed 10/14/19 @ 16:[address] Eric Flores MD) Sister Myocardial infarction, Onset Age: 41 Diabetes Mother COPD (chronic obstructive pulmonary disease) Asthma Rheumatoid arthritis Grandmother Diabetes History Items: Heart Disease, Hypertension Sibling Family History: Family History (Last Reviewed 10/14/19 @ 16:[address] Eric Flores MD) Sister Myocardial infarction, Onset Age: 41 Diabetes Mother COPD (chronic obstructive pulmonary disease) Asthma Rheumatoid arthritis Grandmother Diabetes History Items: Heart Disease, - - His sister at age of 41 because of heart attack. Review of Systems Constitutional: Reports: Malaise, Weakness, Fatigue. Denies: Anorexia, Chills, Fever, Weight Change HEENT: Denies: Head Aches, Sinus Congestion, Sinus Drainage Cardiovascular: Reports: Chest Pain, - - Diaphoresis.. Denies: Palpitations Respiratory: Reports: Shortness of Breath. Denies: Cough, Shortness of breath at rest, Shortness of breath upon exertion, Sputum production Gastrointestinal: Reports: Nausea. Denies: Abdominal Pain, Vomiting Genitourinary: Denies: Dysuria Musculoskeletal: Reports: Back Pain, Neck Pain. Denies: Joint Pain, Joint Tenderness Skin: Denies: Rash, Wounds Neurological: Denies: Numbness, Tingling, Focal weakness Psychiatric: Denies: Anxiety, Depression, Homicidal Ideations, Suicidal Ideations Hematologic/ Lymphatic: Reports: Easy Bruising, Easy Bleeding VTE Information - Inpt Only VTE Present on Admission: No VTE Mechan Device Prophylaxis: SCD's VTE Pharm Prophylaxis ordered?: No Reason prophylaxis not ordered:: Medical Contraindication - Bolus heparin in the ED, planned catheterization. Patient Problems: Active and Suspected Problems (Last Reviewed 10/14/19 @ 16:[address] Eric Flores MD) Unstable angina (Acute) Subjective: Patient seated upright in ED bed, fatigued appearance otherwise no acute distress, notes chest pain 0 out of 10. Objective: Physical Examination: General: awake, alert, oriented x 3 and cooperative, seated upright in the ED bed in no apparent distress, chest pain resolved. Skin: normal color, turgor, no icterus, cyanosis. HEENT: AT/NC, EOMI, PERRLA, MMM, no carotid bruits or JVD noted however thickened neck makes examination difficult. Lungs: CTA bilaterally, moderate effort, moderate decrease BL bases, no rales, ronchi or wheezing. Heart: Regular rate and rhythm; no gallop, rub audible. Abdomen: soft, obese, NTTP, ND, normal BS, no HSM. Extremities: no cyanosis or clubbing, mild bilateral ankle nonpitting edema. Neurological: patient awake, alert, oriented as noted; cognitive function intact; pupils equally reactive to light and accomodation; cranial nerves II-XII grossly normal, moving all 4 extremities, no focal deficits, strength mildly to moderately global decrease secondary to acute presentation, improving. Psychiatric: affect appears fatigued otherwise normal, no acute evidence of depressive or anxiety feelings. - Physical Exam Vitals/I&O's: Vital Signs Temp Pulse Resp BP Pulse Ox 98.6 F 71 23 H 130/76 H 100 11/22/20 01:13 11/22/20 02:03 11/22/20 02:03 11/22/20 02:03 11/22/20 01:54 Oxygen Delivery Method Room Air Weight: 234 lb 2.095 oz Body Mass Index (BMI) 17.9 Laboratory Results 11/22/20 01:20: WBC 12.0 H, RBC 5.35, Hgb 15.8, Hct 47.3, MCV 88.4, MCH 29.5, MCHC 33.4, RDW Std Deviation 41.8, RDW Coeff of [place]arc[place] 13.0, Plt Count 315, MPV 10.6, Immature Gran % (Auto) 0.400, Neut % (Auto) 48.1, Lymph % (Auto) 38.5, [place] % (Auto) 10.5 H, Eos % (Auto) 1.8, Baso % (Auto) 0.7, Absolute Neuts (auto) 5.8, Absolute Lymphs (auto) 4.62 H, Nucleated RBC % 0 11/22/20 01:20: APTT 23.2 L 11/22/20 01:20: Sodium 141, Potassium 3.8, Chloride 105, Carbon Dioxide 30.0, Anion Gap 6, BUN 16, Creatinine 1.16, Estim Creat Clear Calc 115.71, Est GFR (MDRD) Af Amer 86, Est GFR (MDRD) Non-Af 71, BUN/Creatinine Ratio 13.8, Glucose 159 H, Calcium 9.4, Troponin I 0.257 H Current Medications Sodium Chloride () 1,000 mls @ 150 mls/hr IV .Q6H40M MEGAN Last Admin: 11/22/20 01:44 Dose: 150 mls/hr Documented by: Nitroglycerin (Nitroglycerin Sl (Ed/Img/Cath) 0.4 Mg Tablet) 0.4 mg SUBLINGUAL Q5M PRN PRN Reason: Chest pain Last Admin: 11/22/20 01:52 Dose: 0.4 mg Documented by: Assessment/Plan All Active Problems (Last Reviewed 10/14/19 @ 16:[address] Eric Flores MD) Unstable angina (Acute) Chest pain (Acute) Elevated troponin (Acute) History of coronary artery stent placement (Resolved 03/18/20) Chest pain (Resolved) Non-ST elevation ND (NSTEMI) (Resolved) The patient is a 50 y/o M w/ PMHx: Chronic COPD, HTN, HLD, Tobacco use, CAD s/p PCI x5, Chronic back pain who presents to the [facility] ED on 11/22/20 with history of onset chest discomfort awakening him from sleep approximately 30 minutes prior to arrival noted to be continuous and aching in nature in the substernal region with radiation into his mid upper back as well as into his bilateral neck and jaw ranging from mild to severe with associated nausea, dyspnea and diaphoresis prompting ED presentation. 1. Chest Pain concerning for NSTEMI: EKG with sinus rhythm with inverted T waves inferiorly unchanged from prior, chest x-ray with no acute cardiopulmonary findings. In the ED patient ministered Zofran, aspirin 324 mg x 1, nitroglycerin, trop 0.257. Will admit to PCU, maintain on a monitored bed, continue serial cardiac enzymes and EKGs. Obtain magnesium level upon admission. Administered heparin bolus in the ED per discussion with cardiology and ED physician. Continue medical management w/ asa, BB, statin w/ AM FLP, ECHO. Cardiology consulted. Will maintain NPO status. ASA, NG, morphine. 2. CAD: Status post PCI x5 most recently 2019, will continue aspirin, Plavix, statin, metoprolol, lisinopril regimen pending cardiology evaluation as noted #1. 3. Hypertension: Continue home regimen including amlodipine, hydrochlorothiazide, isosorbide, clonidine, lisinopril, metoprolol with hold parameters, PRN hydralazine. 4. Hyperlipidemia: Continue home statin regimen. AM FLP. 5. Hyperglycemia: Admission glucose 159, hemoglobin A1c requested. 6. Tobacco Abuse: Encouraged cessation, inpatient consultation per RT, NR if desired. 7. Chronic COPD: Continue home Symbicort, PRN albuterol, HOB, IS parameters. 8. DVT prophylaxis: SCDs, heparin bolus being administered in the ED. Inpatient E&M: 89091 Init Hosp L3
[2020-11-22] MEDS: Nitroglycerin Oint 1 INCH PACKET TD (02:27)
[2020-11-22] MEDS: Heparin Injection (Vial) 5,000 UNIT/ML VIAL 4000 UNIT IV (02:37)
--- NOTE | 2020-11-22 03:42 | ECHOCS_ITS ---
Reason For Study: [place] Procedure This was a 2D Doppler, Color Flow transthoracic echocardiogram. Contrast injection was performed. Exam performed portable in patient room. Left Ventricle Normal LV size. Moderate concentric left ventricular hypertrophy. The estimated ejection fraction is 37 %. Moderately severe global left ventricular systolic dysfunction. There is moderate to severe global hypokinesis of the left ventricle. Right Ventricle Normal RV size. Normal systolic function. Atria Normal left atrium. Normal right atrium. Mitral Valve Normal mitral valve. Tricuspid Valve Normal tricuspid valve. Aortic Valve Normal aortic valve. Trisinus/trileaflet aortic valve. Pulmonic Valve Normal pulmonic valve. Great Vessels Normal aortic root. The pulmonary artery is normal size. Normal inferior vena cava. Pericardium/Pleural No pericardial effusion. Medication Diluted definity 3.5ml given slow IV push to enhance endocardial definition. MMode/2D Measurements & Calculations LVIDd: 5.3 cm IVSd: 1.6 cm Ao root diam: 3.6 cm LVIDs: 4.4 cm LVPWd: 1.7 cm RVDd: 3.3 cm FS: 18.1 % LAV(MOD-bp): 56.0 ml LA A4 area: 17.9 cm2 LA dimension(2D): 4.5 cm LAV(MOD-bp) Indexed: 24.7 ml/m2 LAV(MOD-sp2): 59.7 ml LAV(MOD-sp4): 46.9 ml RA A4 area: 12.5 cm2 Doppler Measurements & Calculations MV E max panhco: 61.9 cm/sec Lat Peak E' Pancho: 4.8 cm/sec Med Peak E' Pancho: 4.6 cm/sec MV A max pancho: 78.1 cm/sec E/E' lat: 13.0 E/E' med: 13.5 MV E/A: 0.79 Ao V2 max: 102.5 cm/sec LV V1 max: 89.1 cm/sec PA V2 max: 84.8 cm/sec Ao max P.2 mmHg LV V1 max P.2 mmHg Ao V2 mean: 77.2 cm/sec Ao mean P.5 mmHg Ao V2 VTI: 19.6 cm Interpretation Summary Normal LV size. Moderate concentric left ventricular hypertrophy. The estimated ejection fraction is 37 %. Moderately severe global left ventricular systolic dysfunction. There is moderate to severe global hypokinesis of the left ventricle. Contrast injection was performed. Compared to previous study, the left ventricular systolic function has improved.. Ordering Physician: Evelina Vazquez Referring Physician: Hesham Lao Performed By: Lety Canchola, [place], RVT
--- NOTE | 2020-11-22 03:42 | EKG12_ITS ---
Test Reason : CP ADMIT Blood Pressure : / mmHG Vent. Rate : 066 BPM Atrial Rate : 066 BPM P-R Int : 186 ms QRS Dur : 110 ms QT Int : 404 ms P-R-T Axes : 051 020 -15 degrees QTc Int : 423 ms Normal sinus rhythm Normal ECG When compared with ECG of 18-MAR-2020 10:10, No significant change was found Inferior Ischemia Confirmed by BIRGIT EVANGELISTA, GENE ([id number]), assignment desk editor EVELIO CURRY ([id number]) on 11/23/2020 9:07:50 AM Referred By: Evelnia Vazquez Confirmed By:GENE GENAO MD
[2020-11-22 03:57] LABS: Magnesium 1.9 mg/dL (1.6-2.6)
[2020-11-22] MEDS: 0.9% Normal Saline 1,000 ML 100 ML IV (04:23)
[2020-11-22 04:57] LABS: Absolute Lymphocyte Count 3.32 X10^3/uL (0.83-4.51); Absolute Neutrophil Count 5.7 X10^3/uL (2.0-7.7); Basophil# 0.07 X10^3/uL; Basophil% 0.7 % (0-1); Eosinophil# 0.19 X10^3/uL; Eosinophils% 1.8 % (0-5); Hematocrit 42.3 % (40-54); Hemoglobin 14.3 g/dL (13.0-16.5); Lymphocyte # 3.32 X10^3/ul (4.0); Lymphocyte % 31.8 % (19-41); Mean Corp Hgb Conc 33.8 g/dL (32-36); Mean Corpuscular Hgb 29.7 pg (27.0-32.0); Mean Corpuscular Volume 87.9 fL (80-94); Mean Platelet Vol. 10.5 fl (6.2-12.0); Monocyte# 1.11 X10^3/uL; Monocyte% 10.6 % (0-10); NRBC Flagged by Analyzer 0 % (0-5); Neutrophil # 5.68 X10^3/uL (2.7-7.7); Neutrophil % 54.5 % (47-70); Platelet Count 258 K/mm3 (150-450); RBC Distribution Width SD 41.3 fl (35.1-43.9); Red Blood Count 4.81 M/mm3 (4.6-6.2); White Blood Count 10.4 K/mm3 (4.4-11.0)
[2020-11-22 05:24] LABS: ALB/GLOB Ratio 0.9 RATIO (0.9-2.4); AST(SGOT) 33 U/L (15-37); Alanine Aminotransfer ALT/SGPT 59 U/L (16-61); Albumin, Serum 3.1 g/dL (3.2-5.0); Alkaline Phosphatase 101 U/L (45-117); Anion Gap 6 (5-15); BUN 15 mg/dL (7-18); BUN/Creat Ratio 16.6 RATIO (10-20); Calcium,Total 8.6 mg/dL (8.5-10.1); Chloride 106 mmol/L (98-107); Cholesterol 129 mg/dL (200); EST Glomerular Filtration Rate 95 mL/min (>60); Est Glom Filt Rate - Afr Amer 115 mL/min (>60); Estimated Creatinine Clearance 96.06 ml/min; Globulin 3.4 g/dL (2.2-4.2); Glucose 140 mg/dL (74-106); High Density Lipoprotein 30 mg/dL; Potassium 3.6 mmol/L (3.5-5.1); Protein, Total 6.5 g/dL (6.4-8.2); Sodium Level 139 mmol/L (136-145); Triglycerides 105 mg/dL; Very Low Density Lipoprotein 21 mg/dL (5-40)
[2020-11-22] MEDS: amLODIPine 10 MG Tablet PO (06:25)
[2020-11-22] MEDS: Metoprolol Tartrate 100 MG Tablet PO ×2 (06:25→21:12)
[2020-11-22] MEDS: Aspirin 81 MG TAB.CHEW PO (06:25)
[2020-11-22] MEDS: Lisinopril 20 MG Tablet PO ×2 (06:26→21:12)
[2020-11-22] MEDS: Clopidogrel Bisulfate 75 MG Tablet PO (06:26)
[2020-11-22 07:04] LABS: Prothrombin Time (Protime)PT. 12.4 SECONDS (11.7-14.9)
[2020-11-22 07:05] LABS: Partial Thromboplast Time 23.3 Seconds (24.1-36.2)
--- NOTE | 2020-11-22 07:25 | CON.PCM_ITS ---
Reason for Consult Date of Consultation: 11/22/20 Reason for Consultation: Chest discomfort History of Present Illness: The patient is a 50 year old M who presented to the emergency room yesterday. He complained of chest discomfort which woke him from sleep. He said it was a pressure-like sensation radiating to his left shoulder. He does have a history of hypertension, hyperlipidemia, tobacco abuse, medication noncompliance. He underwent in November 2016 a drug-eluting stent to the second obtuse marginal branch, and his last catheterization demonstrated a normal left main coronary artery, and left anterior descending artery with 95% proximal and 50% mid stenosis, circumflex artery with 40% stenosis in the right coronary artery which was normal. He underwent angioplasty and stenting of the left anterior descending artery. In the emergency room he was given aspirin clopidogrel and heparin and admitted. His EKG demonstrated T wave inversions inferiorly. Currently he is pain-free. [] Past Medical History Allergies/Adverse Reactions: Allergies amoxicillin trihydrate [From Augmentin] Allergy (Verified 11/22/20 01:16) Rash potassium clavulanate [From Augmentin] Allergy (Verified 11/22/20 01:16) Rash codeine Adverse Reaction (Verified 11/22/20 01:16) Nausea Home Medications: Ambulatory Orders Medication Instructions Recorded Budesonide/Formoterol 80-4.5 2 puff INHALATION BID 12/09/16 [Symbicort 80-4.5 Mcg Inhaler] Aspirin 81 mg PO DAILY #90 tab.chew 12/12/16 cholecalciferol (vitamin D3) 1,250 50,000 unit PO QWEEK 02/20/19 mcg (50,000 unit) tablet clonidine HCl 0.2 mg tablet 0.2 mg PO BID #60 tab 03/19/20 isosorbide mononitrate 60 mg 60 mg PO DAILY #60 tab 03/19/20 tablet,extended release 24 hr amlodipine 10 mg tablet 10 mg PO DAILY #90 tab 10/20/20 atorvastatin 40 mg tablet 40 mg PO QHS #90 tab 10/20/20 clopidogrel 75 mg tablet 75 mg PO DAILY #90 tab 10/20/20 hydrochlorothiazide 25 mg tablet 25 mg PO DAILY #90 tab 10/20/20 lisinopril 20 mg tablet 20 mg PO BID #180 tab 10/20/20 metoprolol tartrate 100 mg tablet 100 mg PO BID #180 tab 10/20/20 Ondansetron [Zofran Odt] 4 mg PO Q8H PRN PRN #10 tab 11/19/20 Past Medical History (Chronic Problems): Chronic Problems (Last Reviewed 10/14/19 @ 16:[address] Eric Flores MD) Chronic obstructive pulmonary disease (COPD) (Chronic) Tobacco use (Chronic) Obesity (BMI 30.0-34.9) (Chronic) Atherosclerosis of cabazon coronary artery of cabazon heart without angina pectoris (Chronic) WAN-OM2 w/ 2.75 x 14 mm Resolute Integrity 12/11/2016; WAN Mid D1 w/ 2.5 x 18 mm Resolute Integrity and WAN Prox LAD w/ 3.0 x 15 mm Resolute Integrity 02/21/19 History of non-ST elevation myocardial infarction (NSTEMI) (Chronic 02/20/19) 11/2016; 02/20/19 Essential hypertension (Chronic) Hyperlipidemia (Chronic) Nicotine dependence (Chronic) Surgical History: appendectomy, herniorrhaphy, - - Cervical spine fusion surgery x 2, Hernia repair, PCI x 5, appendectomy. Psychiatric History: No pertinent psych hx - *Family History Maternal Family History: Family History (Last Reviewed 10/14/19 @ 16:[address] rEic Flores MD) Sister Myocardial infarction, Onset Age: 41 Diabetes Mother COPD (chronic obstructive pulmonary disease) Asthma Rheumatoid arthritis Grandmother Diabetes History Items: Pulmonary Disease, - - Rheumatoid arthritis. Paternal Family History: Family History (Last Reviewed 10/14/19 @ 16:[address] Eric Flores MD) Sister Myocardial infarction, Onset Age: 41 Diabetes Mother COPD (chronic obstructive pulmonary disease) Asthma Rheumatoid arthritis Grandmother Diabetes History Items: Heart Disease, Hypertension Sibling Family History: Family History (Last Reviewed 10/14/19 @ 16:[address] Eric Flores MD) Sister Myocardial infarction, Onset Age: 41 Diabetes Mother COPD (chronic obstructive pulmonary disease) Asthma Rheumatoid arthritis Grandmother Diabetes History Items: Heart Disease, - - His sister at age of 41 because of heart attack. Lives: Spouse/ Significant Other Smoking Status: Current every day smoker Tobacco Use: Cigarettes Alcohol: Occasional Drugs: None Review of Systems - Review of Systems General: Denies: Fever, Night Sweats, Fatigue HEENT: Denies: Vision Change Cardiovascular: Reports: Chest Discomfort, Chest Discomfort at Rest. Denies: Shortness of Breath, Orthopnea, PND, Peripheral Edema, Palpitations, Lightheadedness, Dizziness, Near Syncope, Syncope Respiratory: Denies: Cough, Sputum Production, Hemoptysis Gastrointestinal: Denies: Hematemesis, Hematochezia, Melena Genitourinary: Denies: Dysuria, Hematuria Skin: Denies: Rash Neurological: Denies: Dizziness Psychiatric: Denies: Anxiety Hematologic/ Lymphatic: Denies: Anemia Subjectve: Pleasant gentleman in no distress Objective: Vital Signs Temp Pulse Resp BP Pulse Ox 98.8 F 73 18 144/91 H 92 11/22/20 04:18 11/22/20 06:25 11/22/20 04:18 11/22/20 04:18 11/22/20 04:18 Oxygen Delivery Method Room Air Weight: 231 lb 4.238 oz Body Mass Index (BMI) 35.2 Intake and Output for Last 24 Hours 11/20/20 11/21/20 11/22/20 23:59 23:59 23:59 Intake Total 290 / 290 Balance 290 / 290 General: Awake, Alert, Oriented x 3 HEENT: PERRL, EOMI, Sclera Non Icteric Neck: Supple, Good ROM, No Lymph Node Enlargement Lungs: Clear to auscultation Cardiovascular: Regular Rhythm, Normal S1, Normal S2, No Murmurs, No Rubs, No Gallops 11/22/20 01:20: WBC 12.0 H, RBC 5.35, Hgb 15.8, Hct 47.3, MCV 88.4, MCH 29.5, MCHC 33.4, Plt Count 315, MPV 10.6, Immature Gran % (Auto) 0.400, Neut % (Auto) 48.1, Lymph % (Auto) 38.5, [place] % (Auto) 10.5 H, Eos % (Auto) 1.8, Baso % (Auto) 0.7, Absolute Neuts (auto) 5.8, Nucleated RBC % 0 11/22/20 01:20: APTT 23.2 L 11/22/20 01:20: Sodium 141, Potassium 3.8, Chloride 105, Carbon Dioxide 30.0, Anion Gap 6, BUN 16, Creatinine 1.16, Est GFR (MDRD) Af Amer 86, Est GFR (MDRD) Non-Af 71, BUN/Creatinine Ratio 13.8, Glucose 159 H, Calcium 9.4, Troponin I 0.257 H 11/22/20 01:20: Magnesium 1.9 11/22/20 04:39: WBC 10.4, RBC 4.81, Hgb 14.3, Hct 42.3, MCV 87.9, MCH 29.7, MCHC 33.8, Plt Count 258, MPV 10.5, Immature Gran % (Auto) 0.600, Neut % (Auto) 54.5, Lymph % (Auto) 31.8, [place] % (Auto) 10.6 H, Eos % (Auto) 1.8, Baso % (Auto) 0.7, Absolute Neuts (auto) 5.7, Nucleated RBC % 0 11/22/20 04:39: Sodium 139, Potassium 3.6, Chloride 106, Carbon Dioxide 27.0, Anion Gap 6, BUN 15, Creatinine 0.90, Est GFR (MDRD) Af Amer 115, Est GFR (MDRD) Non-Af 95, BUN/Creatinine Ratio 16.6, Glucose 140 H, Calcium 8.6, Total Bilirubin 0.40, Triglycerides 105, Cholesterol 129, LDL Cholesterol 78, VLDL Cholesterol 21, HDL Cholesterol 30 L 11/22/20 04:39: Troponin I 0.415 H 11/22/20 06:47: PT 12.4, INR 1.0, APTT 23.3 L 11/22/20 06:47: Troponin I 0.550 H Rhythm: EKG: Normal sinus rhythm with T wave inversions noted inferiorly ECHO: Stress Test: Cardiac Cath: PCI: CT Surgery: Holter monitor: EPS: PPM: CXR: Chest CT Scan: Assessment/Plan 1. Recent onset angina * Patient presents with chest discomfort which is suggestive of angina. It is not clear how compliant he has been off his medications. At this time regarding his risk I would recommend that we pursue a cardiac catheterization to assess the patency of the recently placed stents. Depending on the findings further recommendations will be made. Risk benefits and alternatives of been explained to him he understands and agrees to proceed. * Addendum: Cardiac catheterization today demonstrated the following: Normal left main coronary artery. Left anterior descending artery with previously placed stent with minimal disease. Left circumflex artery with first obtuse marginal branch with mild disease and in-stent stenosis. Mid left circumflex artery previously stented with mild in-stent stenosis. Dominant right coronary artery with high-grade ulcerated plaque in the proximal to mid section: 60 to 70% proximal posterolateral vessel stenosis: 70% distal PDA stenosis. Ejection fraction is 55% with severe inferior hypokinesis. Based on the above angiographic findings would be recommended for angioplasty and stenting of the right coronary artery. 2. Hypertension * His blood pressure does not appear to be very well controlled. He is on clonidine and with his relative noncompliance I would recommend that we switch him to something else which would not result in rebound hypertension. I will review his medications. * 3. Coronary artery disease * He is status post previous angioplasty and stenting and multiple blood vessels as noted above. Repeat cardiac catheterization be performed and further recommendations made. * 4. Risk factor modification * Recommend risk factor modification with smoking cessation and lipid lowering therapy. * * Thank you for allowing me to participate in the care of your patient. Please don't hesitate to call if any issues arise.
[2020-11-22 07:33] LABS: Hemoglobin A1c 7.1 % (3.8-5.6)
[2020-11-22] MEDS: cloNIDine HCl 0.2 MG Tablet PO ×2 (08:15→21:13)
[2020-11-22] MEDS: Famotidine 20 MG Tablet PO ×2 (08:15→21:13)
[2020-11-22] MEDS: Isosorbide Mononitrate 60 MG Tablet PO (08:15)
--- NOTE | 2020-11-22 09:07 | CASEMGMT ---
According to the MMO website, the following are in-network tertiary facilities: [facility], [facility], [facility], [facility], [facility], [facility], [facility], [facility], [facility], and . Mary LAWS CM
--- NOTE | 2020-11-22 09:31 | CL.D_ITS ---
Patient Name: LATONYA ELDER Study Date: 11/22/2020 Performing: Eric Flores MD Ht: 68.11 inches 173 cm : 1970 Wt: 231.49 lbs 105 kg Age: 50 Gender: male BSA: 2.18 PROCEDURE(S) PERFORMED [id number]/LV [id number] W OR WO PTCA, SINGLE CORONARY ARTERY CLINICAL PROFILE AND INDICATIONS Indications: ACS <= 24 hrs Heart Failure: None Stress/Imaging Stress/Image Study Performed: No CAD Presentations: Unstable angina. CONCLUSIONS Coronary artery disease with previously placed stent in the left anterior descending artery with no s ignificant stenosis, left circumflex artery with mild in-stent stenosis, dominant large right coronar y artery with proximal to mid 95% ulcerated plaque, 65% proximal posterolateral and sequential 70 to 75% distal posterior descending artery. RECOMMENDATIONS Referred for immediate PCI DESCRIPTION OF PROCEDURE The patient arrived to the procedure lab. The risks and benefits of the procedure as well as a full d escription of our services here and current unavailability of surgical backup were fully explained to the patient and/or their significant other prior to the catheterization. The Timeout was completed, verifying the correct patient and procedure. The patient's procedural site was prepped and draped in the usual fashion. Local anesthetic was given subcutaneously to right radial region with Lidocaine 2% . Using a modified Seldinger technique, arterial access was obtained via the right radial artery, a 6 Fr sheath was inserted. Left Coronary Artery selective angiography was performed in multiple views u sing a 5 Fr. 4.0 Desoto catheter. Right Coronary Artery selective angiography was then performed in mu ltiple views using a 5 Fr. 4.0 Desoto catheter. Left Ventriculography was performed in SANTOS projection using a 5 Fr. Pigtail catheter. LV to AO pullback pressures were then recorded. CORONARY ANGIOGRAPHY DOMINANCE: Right Dominant LEFT HEART ASSESSMENT Left Ventricular Ejection Fraction: by LV Gram 55 % Inferior Mid Hypokinesis - Severe Normal Left Ventricular systolic function LEFT MAIN: Angiographically normal LEFT ANTERIOR DESCENDING ARTERY: Previously placed stent is patent, Mild luminal irregularities CIRCUMFLEX ARTERY: MID CIRC: Mild luminal irregularities less than 30%, Previously placed stent is patent OM 1: Mid - Previously placed stent is patent RIGHT CORONARY ARTERY: MID RCA: Patient seen and evaluated. Ulcerated plaque with 95% stenosis RT PLV: 65 % Stenosis RT PDA: Distal - 70 sequential % Stenosis COMPLICATIONS PROCEDURE MEDICATIONS Fentanyl 50 mcg IV Versed 1 mg IV Versed 1 mg IV Oxygen: 2 L/min via nasal cannula Heparin diluted in 23cc Heparinized saline. Patient given 10cc IA of this solution. 11/22/2020 09:02:5 8 Verapamil 2.5mg, Ntg 100mcgs, 2000 units of Heparin diluted in 23cc Heparinized saline. Patient give n 10cc IA of this solution. 11/22/2020 09:02:58 SUMMARY OF HEMODYNAMIC DATA Time AIR REST ECG 08:41:47 AO 144/103 (122) SA 09:04:26 LV 128/9, 24 09:13:15 LV 132/12, 24 09:13:22 LV 134/15, 24 09:14:13 LVp 133/14, 26 09:14:17 AOp 138/90 (111) 09:14:22 Signed By Eric Flores MD On 11/22/2020 09:30:19 Eric Flores MD
--- NOTE | 2020-11-22 10:30 | EKG12_ITS ---
Test Reason : PCI Blood Pressure : / mmHG Vent. Rate : 066 BPM Atrial Rate : 066 BPM P-R Int : 184 ms QRS Dur : 112 ms QT Int : 414 ms P-R-T Axes : 057 016 004 degrees QTc Int : 434 ms Normal sinus rhythm Incomplete left bundle branch block Confirmed by ANNE EVANGELISTA, ERIC ([id number]), fan mail editor EVELIO CURRY ([id number]) on 11/24/2020 9:42:09 AM Referred By: Evelina Vazquez Confirmed By:ERIC RODRÍGUEZ MD
--- NOTE | 2020-11-22 10:39 | PCI.CARDCATH ---
PCI Cardiac Cath Report PCI Report: Procedure: Stenting of the proximal RCA and stenting of the proximal posterolateral branch of the distal right coronary artery Clinical history: 50-year-old white male with unstable angina and ischemic EKG changes. Diagnostic cardiac catheterization showed very tight proximal right coronary artery and proximal posterolateral branch of the distal right coronary artery Indication: As stated above Heart failure: None Stress/imaging: None CAD presentation: Functional class IV angina Summary: #1 successful stenting of the proximal posterolateral branch of the distal right coronary artery. Pre-PCI stenosis was 70%. Post PCI stenosis was 0%. ESTEPHANIA-3 flow was maintained. Type A lesion #2 successful stenting of the proximal right coronary artery. Pre-PCI stenosis was 90%. Post PCI stenosis was 0%. ESTEPHANIA-3 flow was maintained. Type A lesion Procedure Details The risks, benefits, complications, treatment options, and expected outcomes were discussed with the patient. The patient and/or family concurred with the proposed plan, giving informed consent. Patient was brought to the lab courier after IV hydration . Patient was further sedated with IV conscious sedation. Subject was prepped and draped in the usual manner. Using the modified Seldinger access technique, a 6 Guinean sheath was placed in the right radial artery. Standard diagnostic catheters were used. Exchanges were performed over J-wire. At the end of the procedures, all catheters and sheaths were removed and bleeding was stopped with closure device using TR band Findings: Moderate Sedation: Conscious sedation was administered under my supervision with cardiorespiratory monitoring performed by independent and qualified nursing personnel. Medications and dosages are recorded separately in the electronic medical record. Hemodynamics: BP [140/90} HR 65 bpm Coronary Anatomy: Right dominance Intervention Lesion: Stenting of the proximal posterolateral branch of the distal right coronary artery, stenting of the proximal right coronary artery Guiding Catheter used 6 Guinean AL 0.75 Guide Wire used: Run-through balloon used: None stents Used: Synergy: 3.0x12, 3.5x20 Procedure in detail: The run-through had no difficulty passing down to the distal posterolateral branch. The 70% stenoses of the proximal posterolateral branch was treated with direct stenting using the 3.0 stent. This was inflated to 16 shira. Residual stenosis of 0%. ESTEPHANIA-3 flow was maintained. The 3.5 stent was then used for direct stenting of the proximal right coronary artery. This was inflated to 24 shira. Residual stenosis was 0%. ESTEPHANIA-3 flow was maintained. Distal posterior descending was small and diffusely diseased. No angioplasty attempt was performed Estimated Blood Loss: Minimal} Complications: None Disposition condition: Stable
--- NOTE | 2020-11-22 10:48 | CRPHASE1_ITS ---
Patient Communication Former Patient:: Phase I PHII Cardiac Rehab Discussed with Patient:: Yes - 03/18/20, 02/21/2019, 11/20 Guide to Cardiac Rehab Given to Patient:: Yes Cardiac Rehab Facility Choice List Given to Patient:: Yes Choice Program [facility] CR PHII:: Communication Given to CR, Refer to [facility] Social Worker Assistant:: Brennon Staton Phase II Cardiac Rehab:: Yes Sessions:: 36 sessions - 3 days/wk, 12 weeks - Patient has previously been referred to CR several times and has never participated in CR. Risk Factors/Lifestyle Family History: Family History (Last Reviewed 10/14/19 @ 16:[address] Eric Flores MD) Sister Myocardial infarction, Onset Age: 41 Diabetes Mother COPD (chronic obstructive pulmonary disease) Asthma Rheumatoid arthritis Grandmother Diabetes Laboratory Values: Cardiac Rehab Phase I Labs Hemoglobin A1c 7.1 % (3.8-5.6) H 11/22/20 04:39 Triglycerides 105 mg/dL (-199) 11/22/20 04:39 Cholesterol 129 mg/dL (200) 11/22/20 04:39 LDL Cholesterol 78 mg/dL (0-130) 11/22/20 04:39 HDL Cholesterol 30 mg/dL (40-) L 11/22/20 04:39 Cardiac Rehabilitation Info Cardiac Rehabilitation Program Information: Cardiac Rehabilitation is important for patients like you who are recovering from a heart problem. Cardiac rehabilitation programs are recognized as integral to the continued care of the patient with coronary heart disease. The cardiac rehabilitation program is designed to optimize a patient's physical, psychological, and social functioning. Health youth care professional work in cardiac rehabilitation programs and assist you with getting the treatments you need to get stronger and healthier - like exercise, healthy eating habits, and medications. Cardiac rehabilitation has been show to help people with heart problems live longer and have better life enjoyment than people who do not go to cardiac rehabilitation. Please contact the Cardiac Rehabilitation Program at [facility] at in two weeks if you have not heard from them.
--- NOTE | 2020-11-22 10:52 | CRPH1.INSTRU ---
General Education CAD and cardiac anatomy and function:: Patient communicates acknowledgment, Needs reinforcement Explanation of diagnoses and procedures:: Patient communicates acknowledgment, Needs reinforcement Sign/Symptoms of MO:: Patient communicates acknowledgment, Needs reinforcement Antiplatelet therapy: Patient communicates acknowledgment, Needs reinforcement Proper use of NTG-SL: Patient communicates acknowledgment Emergency procedures and activation of EMS: Patient communicates acknowledgment Compliance of all prescribed medications: Patient communicates acknowledgment, Needs reinforcement Smoking Patient Nicotine/Smoking Risk Factors Are:: Cigarettes Recommendations Include:: Smoking cessation strategies/Smoking packet, Participation in a smoking cessation program Nicotine/Smoking Response Code:: Needs reinforcement Overweight/Obesity Patient Overweight/Obesity Risk Factors Are:: Obesity - > or = 30 Recommendations Include:: Weight loss of 5-10% Overweight/Obesity:: Needs reinforcement Hypertension Recommendations Include:: Maintain BP <130/85, DASH dietary guidelines, Decrease/maintain normal body weight Hypertension:: Needs reinforcement Heart Disease Patient Heart Disease Risk Factors Are:: Family history of heart disease < 65 years old, Previous cardiac event Recommendations Include:: Educated family members of their risk Heart Disease Response Code:: Needs reinforcement Sedentary Patient Sedentary Risk Factors Are:: Lack of regular exercise Recommendations Include:: Benefits of regular exercise, Discussed home walking program, Monitored Outpatient Cardiac Rehab Sedentary Response Code:: Needs reinforcement
[2020-11-22] MEDS: Albuterol 2.5 MG/3 ML VIAL.NEB. INHALATION ×2 (11:02→19:46)
[2020-11-22] MEDS: 0.9% Normal Saline 1,000 ML 75 ML IV (11:02)
[2020-11-22 11:30] LABS: ACT Activated Clotting Time 241 sec (74-137)
[2020-11-22 11:30] LABS: ACT Activated Clotting Time 224 sec (74-137)
[2020-11-22 11:31] LABS: ACT Activated Clotting Time 246 sec (74-137)
[2020-11-22] MEDS: hydroCHLOROthiazide 25 MG Tablet PO (11:48)
--- NOTE | 2020-11-22 14:08 | PN_ITS ---
Patient Problems: Active and Suspected Problems (Last Reviewed 10/14/19 @ 16:[address] Eric Flores MD) Unstable angina (Acute) Chest pain (Acute) Elevated troponin (Acute) Subjective: Patient seen and examined. He was admitted with a complaint of chest pain. Patient has a history of CAD s/p PCI with stents x5. On admission, initial troponin was 0.257 and trended up to a peak of 0.5 and EKG showed T waves which were inverted in the inferior leads and similar to previous EKGs. Chest x-ray showed no acute cardiopulmonary findings. He was admitted and managed for non- STEMI and started on heparin drip as well as given aspirin. Cardiology was consulted. His for cardiac cath today. Patient seen. He had no chest pain at time of review and had no other symptoms. Review of systems otherwise negative. He has remained hemodynamically stable. Vitals/I&O's: Vital Signs Temp Pulse Resp BP Pulse Ox 98.1 F 69 19 H 158/110 H 94 11/22/20 08:10 11/22/20 12:30 11/22/20 12:30 11/22/20 12:30 11/22/20 12:30 Oxygen Flow Rate (L/min) 2 Oxygen Delivery Method Room Air Weight: 231 lb 4.238 oz Body Mass Index (BMI) 35.2 Intake and Output for Last 24 Hours 11/20/20 11/21/20 11/22/20 23:59 23:59 23:59 Intake Total 918.33 / 918.33 Balance 918.33 / 918.33 General: Alert, Oriented x3, Cooperative, No apparent distress HEENT: Atraumatic, PERRLA, EOMI, Normocephalic Oral: Dry Mucosa Neck: Supple, No JVD, Negative Carotid Bruits Lungs: Clear to auscultation, Normal air movement, No rhonchi, No wheeze, No rales Cardiovascular: Regular rate, Regular Rhythm, Normal S1, Normal S2, No murmurs Abdomen: Bowel Sounds Present, Soft, Non Tender Extremities: No clubbing, No cyanosis, No edema, Capillary Refill Less than 3 Seconds Skin: No rashes, No breakdown Musculoskeletal: No Tenderness to Palpation of Joints or Extremities Lymphatic: No Cervical, Supraclavicular, or Inguinal Adenopathy Neurological: Cranial nerves II-XII grossly intact, Neuro grossly intact, Motor Exam 5/5 strength throughout Psych/Mental Status: Normal Affect, Appropriate, Alert and oriented to time, place, person, mood and affect Microbiology Past 72 Hours 11/22/20 03:00 Mucosa - Nasopharyngeal SARS-CoV-2 Antigen (Rapid) - Final Laboratory Results 11/22/20 01:20: WBC 12.0 H, RBC 5.35, Hgb 15.8, Hct 47.3, MCV 88.4, MCH 29.5, MCHC 33.4, RDW Std Deviation 41.8, RDW Coeff of Narcisa 13.0, Plt Count 315, MPV 10.6, Immature Gran % (Auto) 0.400, Neut % (Auto) 48.1, Lymph % (Auto) 38.5, [place] % (Auto) 10.5 H, Eos % (Auto) 1.8, Baso % (Auto) 0.7, Absolute Neuts (auto) 5.8, Absolute Lymphs (auto) 4.62 H, Nucleated RBC % 0 11/22/20 01:20: APTT 23.2 L 11/22/20 01:20: Sodium 141, Potassium 3.8, Chloride 105, Carbon Dioxide 30.0, Anion Gap 6, BUN 16, Creatinine 1.16, Estim Creat Clear Calc 115.71, Est GFR (MDRD) Af Amer 86, Est GFR (MDRD) Non-Af 71, BUN/Creatinine Ratio 13.8, Glucose 159 H, Calcium 9.4, Troponin I 0.257 H 11/22/20 01:20: Magnesium 1.9 11/22/20 04:39: WBC 10.4, RBC 4.81, Hgb 14.3, Hct 42.3, MCV 87.9, MCH 29.7, MCHC 33.8, RDW Std Deviation 41.3, RDW Coeff of Narcisa 13.0, Plt Count 258, MPV 10.5, Immature Gran % (Auto) 0.600, Neut % (Auto) 54.5, Lymph % (Auto) 31.8, [place] % (Auto) 10.6 H, Eos % (Auto) 1.8, Baso % (Auto) 0.7, Absolute Neuts (auto) 5.7, Absolute Lymphs (auto) 3.32, Nucleated RBC % 0 11/22/20 04:39: Sodium 139, Potassium 3.6, Chloride 106, Carbon Dioxide 27.0, Anion Gap 6, BUN 15, Creatinine 0.90, Estim Creat Clear Calc 96.06, Est GFR (MDRD) Af Amer 115, Est GFR (MDRD) Non-Af 95, BUN/Creatinine Ratio 16.6, Glucose 140 H, Calcium 8.6, Total Bilirubin 0.40, AST 33, ALT 59, Alkaline Phosphatase 101, Total Protein 6.5, Albumin 3.1 L, Globulin 3.4, Albumin/Globulin Ratio 0.9, Triglycerides 105, Cholesterol 129, LDL Cholesterol 78, VLDL Cholesterol 21, HDL Cholesterol 30 L 11/22/20 04:39: Hemoglobin A1c 7.1 H 11/22/20 04:39: Troponin I 0.415 H 11/22/20 06:47: PT 12.4, INR 1.0, APTT 23.3 L 11/22/20 06:47: Troponin I 0.550 H 11/22/20 09:40: Activated Clotting Time 241 H 11/22/20 10:08: Activated Clotting Time 224 H 11/22/20 10:20: Activated Clotting Time 246 H Diagnostic Data Chest X-Ray 11/22/20 01:35 IMPRESSION: No acute cardiopulmonary abnormality. at 0216 Reported and signed by: Rachael Huynh MD Electronically Signed: Rachael Huynh MD at 2:16 EST Tel , Service support , Current Medications Acetaminophen (Acetaminophen 325 Mg Tablet) 650 mg PO Q6H PRN PRN PRN Reason: Pain Score 1-10/Temp > 100.7 F Al Hydroxide/Mg Hydroxide (Mag Hydrox/Al Hydrox/Simeth 30 Ml Udc) 30 ml PO Q6H PRN PRN PRN Reason: Gastric Burning Albuterol Sulfate (Albuterol 2.5 Mg/3 Ml Vial.Neb.) 2.5 mg INHALATION Q2H PRN PRN PRN Reason: Dyspnea, wheezing Albuterol Sulfate (Albuterol 2.5 Mg/3 Ml Vial.Neb.) 2.5 mg INHALATION Q6HWA.RT [facility] Last Admin: 11/22/20 11:02 Dose: 2.5 mg Documented by: Amlodipine Besylate (Amlodipine 10 Mg Tablet) 10 mg PO DAILY [facility] Last Admin: 11/22/20 06:25 Dose: 10 mg Documented by: Aspirin (Aspirin 81 Mg Tab.Chew) 81 mg PO DAILY [facility] Last Admin: 11/22/20 06:25 Dose: 81 mg Documented by: Atorvastatin Calcium (Atorvastatin Calcium 40 Mg Tablet) 40 mg PO QHS [facility] Atropine Sulfate (Atropine Sulfate 1 Mg/10 Ml Syringe) 0.5 mg IV UD PRN PRN Reason: HR <50 bpm Budesonide (Budesonide Respules 0.5 Mg/2 Ml Ampul.Neb.) 0.5 mg INHALATION Q12H.RT [facility] Clonidine (Clonidine Hcl 0.2 Mg Tablet) 0.2 mg PO BID [facility] Last Admin: 11/22/20 08:15 Dose: 0.2 mg Documented by: Clopidogrel Bisulfate (Clopidogrel Bisulfate 75 Mg Tablet) 75 mg PO DAILY [facility] Last Admin: 11/22/20 06:26 Dose: 75 mg Documented by: Famotidine (Famotidine 20 Mg Tablet) 20 mg PO BID [facility] Last Admin: 11/22/20 08:15 Dose: 20 mg Documented by: Guaifenesin (Guaifenesin 10 Ml Udc (200mg/10ml)) 20 ml PO Q4H PRN PRN PRN Reason: COUGH Heparin Sodium (Beef Lung) (Heparin Lock 500 Unit/5 Ml In 10 Ml Syringe) 500 unit IV UD PRN PRN Reason: HEPARIN FLUSH Hydralazine HCl (Hydralazine 20 Mg/Ml Vial) 10 mg IV Q4H PRN PRN PRN Reason: SBP > 160 Hydrochlorothiazide (Hydrochlorothiazide 25 Mg Tablet) 25 mg PO DAILY [facility] Last Admin: 11/22/20 11:48 Dose: 25 mg Documented by: Sodium Chloride () 1,000 mls @ 100 mls/hr IV .Q10H [facility] Last Infusion: 11/22/20 11:00 Dose: Infused Documented by: Sodium Chloride () 250 mls @ 15 mls/hr IV .[id number] PRN PRN Reason: Saline Flush Sodium Chloride () 250 mls @ 15 mls/hr IV .[id number] PRN PRN Reason: Additional IVPB Infusion Sodium Chloride () 1,000 mls @ 0 mls/hr IV .Q0M [facility] Sodium Chloride () 1,000 mls @ 75 mls/hr IV .[id number] [facility] Stop: 11/22/20 18:36 Last Admin: 11/22/20 11:02 Dose: 75 mls/hr Documented by: Isosorbide Mononitrate (Isosorbide Mononitrate 60 Mg Tablet) 60 mg PO DAILY [facility] Last Admin: 11/22/20 08:15 Dose: 60 mg Documented by: Labetalol HCl (Labetalol (Prefilled) 20 Mg/4 Ml) 5 mg IV X1 PRN PRN Reason: SBP >160 when pulling sheath Stop: 11/24/20 10:26 Lisinopril (Lisinopril 20 Mg Tablet) 20 mg PO BID [facility] Last Admin: 11/22/20 06:26 Dose: 20 mg Documented by: Magnesium Hydroxide (Magnesium Hydroxide 30 Ml Udc) 30 ml PO DAILY PRN PRN PRN Reason: Constipation Melatonin (Melatonin 3 Mg Tablet) 3 mg PO QHS PRN PRN PRN Reason: INSOMNIA Metoprolol Tartrate (Metoprolol Tartrate 100 Mg Tablet) 100 mg PO BID [facility] Last Admin: 11/22/20 06:25 Dose: 100 mg Documented by: Morphine Sulfate (Morphine 2 Mg/Ml Syringe) 2 mg IV Q3H PRN PRN PRN Reason: Pain Score 6-10 Nitroglycerin (Nitroglycerin (Inpatient Use) 0.4 Mg Tab.Subl) 0.4 mg SUBLINGUAL Q5M PRN PRN Reason: CARDIAC/CHEST PAIN Ondansetron HCl (Ondansetron 4 Mg/2 Ml Vial) 4 mg IV Q8H PRN PRN PRN Reason: NAUSEA/VOMITING Oxycodone HCl (Oxycodone 5 Mg Tablet) 5 mg PO Q4H PRN PRN PRN Reason: Pain Score 4-5 Prochlorperazine Edisylate (Prochlorperazine 10 Mg/2 Ml Vial) 5 mg IV Q4H PRN PRN PRN Reason: Breakthrough Nausea/Vomiting Psyllium Hydrophilic Mucilloid (Psyllium 1 Packet) 1 packet PO DAILY PRN PRN PRN Reason: Constipation Senna/Docusate Sodium (Senna/Docusate Sodium 1 Tablet) 2 tablet PO BID PRN PRN PRN Reason: Constipation Sodium Chloride (0.9% Saline Lock 10 Ml Syringe) 10 - 40 ml IV UD PRN PRN Reason: SALINE FLUSH Sodium Chloride (0.9% Normal Saline 500 Ml Iv.Soln.) 500 ml IV BOLUS PRN PRN Reason: VASO-VAGAL PROTOCOL Throat Lozenges (Benzocaine/Menthol 1 Lozenge) 1 lozenge MUCOUS MEM Q2H PRN PRN PRN Reason: SORE THROAT STROKE Vital Signs/Narrative: Vital Signs Pulse Resp BP Pulse Ox 11/22/20 12:30 69 19 H 158/110 H 94 11/22/20 12:00 67 18 151/100 H 94 11/22/20 11:30 69 16 158/103 H 93 11/22/20 11:15 66 17 146/98 H 97 11/22/20 11:02 71 16 93 11/22/20 11:00 64 19 H 155/107 H 94 11/22/20 10:53 65 16 136/95 H 95 Medical Necessity - Tobacco Use Smoking Status: Current every day smoker Tobacco Use: Cigarettes Assessment/Plan All Active Problems (Last Reviewed 10/14/19 @ 16:[address] Eric Flores MD) Unstable angina (Acute) Chest pain (Acute) Elevated troponin (Acute) History of coronary artery stent placement (Resolved 03/18/20) Chest pain (Resolved) Non-ST elevation SC (NSTEMI) (Resolved) #Nonstemi * Opponent trended up to a peak of 0.5. * Had cardiac cath today which showed left circumflex artery with mild in-stent stenosis as well as dominant large RCA with proximal to mid 95% ulcerated plaque in 95% proximal posterolateral and sequential 70 to 75% distal posterior descending artery * had PCI in proximal RCA and proximal posterolateral branch of the distal RCA * on aspirin, plavix, statin, metoprolol, lisinopril. * cardiology on board * # Hyperlipidemia: on statin # Hypertension * On amlodipine, hydrochlorothiazide, lisinopril and metoprolol as well as Imdur and clonidine. IV hydralazine as needed. * #Newly diagnosed diabetes mellitus * Not a known diabetic. On admission glucose was 159. A1c is 7.1. * will start on metformin 48 hours after he received contrast for dye * insulin sliding scale * accucheck ACHS * # Nicotine dependence * patient counseled to quit. * Nicotine patch 21mg daily * #Chronic COPD: not in exacerbation. On symbicort. breathing treatment with bronchodilators prn DVT prophylaxis: Off heparin drip after cath. SCDs. Inpatient E&M: 64372 Subs Hosp L2
--- NOTE | 2020-11-22 14:50 | CASEMGMT ---
RN CM Face to Face with patient for initial transition planning/care coordination assessment. RN CM introduced self and role at [facility]. Patient lying in bed, alert and oriented, at bedside. Patient willing to participate in assessment and is able to answer all questions appropriately. Care providers, pharmacy, and demographics verified. Patient wishes to discharge home, denies need for home health at this time. Patient states he has no further needs or concerns at this time. CM to follow for discharge planning needs that may arise. PCP: Shilo Specialists: none Preferred [facility]acy: [facility] Insurance: MMO Prescription Benefit: yes Living Will/HPOA: none LNOK: Living Arrangements: patient lives with in a second floor apart. Patient states he is able to ambulate stairs. Paitent states he is independent Transportation: self/ DME/HHC: Patient denies DME or previous HHC. Patient states he smokes 1 PPD of cigarettes and drinks 2 alcohol beverages a night. Patient denied resources for quiting. Disposition Plan: Patient to discharge home with family support and follow-up plans in place. Roya MUÑOZ, RN, CM
[2020-11-22] MEDS: hydrALAZINE 20 MG/ML Vial 10 MG IV (17:34)
[2020-11-22] MEDS: 0.9% Saline Lock 10 ML Syringe IV (17:35)
[2020-11-22] MEDS: Budesonide Respules 0.5 MG/2 ML AMPUL.NEB. INHALATION (19:46)
[2020-11-22] MEDS: Atorvastatin Calcium 40 MG Tablet PO (21:12)
--- NOTE | 2020-11-22 21:20 | NURSING ---
This RN explained to pt that his blood levels showed a high Hgba1c, that we will be checking his BS and covering with insulin while here. The plan is to send home on Metformin once pt goes home and its been 48 hrs since contrast given. Pt became agitated and said he refuses the insulin, and most definitely wont be taking any meds at home. Pt states that in the past when placed on DM medication it made him sick and he refuses to do that again. Pt allowed this RN to have one chance to check the BS. There was not enough blood on the strip and needed to be done again but the pt wouldnt allow it. No BS was received, and no insulin was given.
[2020-11-22] MEDS: Zolpidem Tartrate 5 MG Tablet PO (22:52)
[2020-11-23 02:30] VITALS: BP 160/104; PULSE 69; RESP 18; TEMP 36.7; O2SAT 94
[2020-11-23 03:00] VITALS: PULSE 68
[2020-11-23 06:47] LABS: Hematocrit 45.1 % (40-54); Mean Corp Hgb Conc 33.3 g/dL (32-36); Mean Corpuscular Hgb 29.3 pg (27.0-32.0); Mean Corpuscular Volume 88.1 fL (80-94); Mean Platelet Vol. 10.9 fl (6.2-12.0); Platelet Count 271 K/mm3 (150-450); RBC Distribution Width SD 42.3 fl (35.1-43.9); Red Blood Count 5.12 M/mm3 (4.6-6.2); White Blood Count 9.8 K/mm3 (4.4-11.0)
[2020-11-23 06:59] VITALS: PULSE 74
[2020-11-23 07:07] LABS: ALB/GLOB Ratio 0.9 RATIO (0.9-2.4); AST(SGOT) 28 U/L (15-37); Alanine Aminotransfer ALT/SGPT 69 U/L (16-61); Albumin, Serum 3.5 g/dL (3.2-5.0); Alkaline Phosphatase 111 U/L (45-117); Anion Gap 3 (5-15); BUN 9 mg/dL (7-18); BUN/Creat Ratio 10.9 RATIO (10-20); Calcium,Total 9.1 mg/dL (8.5-10.1); Chloride 106 mmol/L (98-107); Creatinine, Serum 0.83 mg/dL (0.70-1.30); EST Glomerular Filtration Rate 105 mL/min (>60); Est Glom Filt Rate - Afr Amer 127 mL/min (>60); Estimated Creatinine Clearance 104.16 ml/min; Globulin 3.8 g/dL (2.2-4.2); Glucose 122 mg/dL (74-106); Potassium 3.3 mmol/L (3.5-5.1); Protein, Total 7.3 g/dL (6.4-8.2); Sodium Level 140 mmol/L (136-145)
[2020-11-23 07:13] VITALS: PULSE 74; RESP 18; O2SAT 95
[2020-11-23] MEDS: Budesonide Respules 0.5 MG/2 ML AMPUL.NEB. INHALATION (07:13)
[2020-11-23] MEDS: Albuterol 2.5 MG/3 ML VIAL.NEB. INHALATION (07:13)
--- NOTE | 2020-11-23 07:41 | NURSING ---
This RN and nightshift RN into room to do bedside report and check blood glucose. Pt refused accucheck and SSI.
[2020-11-23 08:30] VITALS: BP 181/91; PULSE 70; RESP 16; TEMP 36.6; O2SAT 95
--- NOTE | 2020-11-23 08:39 | DCINST_ITS ---
- Discharge Diagnoses Current Active Problems: Current Active and Chronic Problems (Last Updated 11/22/20 @ 14:12 by Crista Liang) Unstable angina (Acute) Chest pain (Acute) Elevated troponin (Acute) Chronic obstructive pulmonary disease (COPD) (Chronic) Tobacco use (Chronic) Obesity (BMI 30.0-34.9) (Chronic) Atherosclerosis of [place] coronary artery of [place] heart without angina pectoris (Chronic) History of non-ST elevation myocardial infarction (NSTEMI) (Chronic 11/22/20) 11/2016; 02/20/19 Essential hypertension (Chronic) Hyperlipidemia (Chronic) Nicotine dependence (Chronic) You will use the following diet at home:: Cardiac Your food should be the consistency of: Regular Your liquids should be the consistency of: Regular/Thin Discharge Activity: Return to Normal Activity Weight Bearing Status: Weight bearing as tolerated Call your doctor if you observe: Fever of 101 or Higher, Shortness of breath, Dizziness, Swelling in the ankles, Chest pain, Increased palpitations (irregular heartbeat) Instructions: ED Heart Disease Risk Factors, Recognizing a Heart Attack or Angina, Warning Signs of a Heart Attack, What Is Angina? Additional Instructions: follow up with PCP for start of diabetes meds, as per patient's request Allergies/Adverse Reactions: Allergies amoxicillin trihydrate [From Augmentin] Allergy (Verified 11/22/20 01:16) Rash potassium clavulanate [From Augmentin] Allergy (Verified 11/22/20 01:16) Rash codeine Adverse Reaction (Verified 11/22/20 01:16) Nausea Medications to take at Discharge Budesonide/Formoterol 80-4.5 [Symbicort 80-4.5 Mcg Inhaler] 2 puff INHALATION BID 12/09/16 Aspirin 81 mg PO DAILY #90 tab.chew 12/12/16 cholecalciferol (vitamin D3) 1,250 mcg (50,000 unit) tablet 50,000 unit PO QWEEK 02/20/19 clonidine HCl 0.2 mg tablet 0.2 mg PO BID #60 tab 03/19/20 isosorbide mononitrate 60 mg tablet,extended release 24 hr 60 mg PO DAILY #60 tab 03/19/20 amlodipine 10 mg tablet 10 mg PO DAILY #90 tab 10/20/20 atorvastatin 40 mg tablet 40 mg PO QHS #90 tab 10/20/20 clopidogrel 75 mg tablet 75 mg PO DAILY #90 tab 10/20/20 hydrochlorothiazide 25 mg tablet 25 mg PO DAILY #90 tab 10/20/20 lisinopril 20 mg tablet 20 mg PO BID #180 tab 10/20/20 metoprolol tartrate 100 mg tablet 100 mg PO BID #180 tab 10/20/20 Ondansetron [Zofran Odt] 4 mg PO Q8H PRN PRN #10 tab 11/19/20 Orders to be completed after discharge: Phase II, Outpatient Cardiac Rehab Location: None Selected Primary Care Physician: Hesham Lao MD [Primary Care Provider] - Please follow up with your Primary Care Physician in: 1-2 weeks Test Results: Test results from this visit will be discussed in further detail at your follow- up appointment, if applicable. Please Follow Up With: Eric Flores MD When: 2-3 weeks Proposed Discharge Date: 11/23/20
--- NOTE | 2020-11-23 08:40 | NURSING ---
Addendum entered by Zahraa See 11/23/20 08:45: K 3.3 this morning. Educated pt on K levels and need for replacement. Pt refused po K replacement. Original Note: Pt refusing to take scheduled morning medications. States he will take them when he gets home. Pt also requested to speak with Dr Ortega prior to him leaving. Dr Conde notified.
--- NOTE | 2020-11-23 08:40 | PCM.WORK.EX ---
Work/School Excuse Please excuse this person from:: Work From: 11/23/20 through: 11/28/20
--- NOTE | 2020-11-23 10:00 | EKG12_ITS ---
Test Reason : AM EKG Blood Pressure : / mmHG Vent. Rate : 066 BPM Atrial Rate : 066 BPM P-R Int : 182 ms QRS Dur : 112 ms QT Int : 408 ms P-R-T Axes : 053 002 004 degrees QTc Int : 427 ms Normal sinus rhythm Poor R wave progression Confirmed by ANNE EVANGELISTA, ERIC ([id number]), art editor EVELIO CURRY ([id number]) on 11/24/2020 9:47:13 AM Referred By: Evelina Vazquez Confirmed By:ERIC RODRÍGUEZ MD
--- NOTE | 2020-11-23 15:53 | PCM.DC.SUM ---
Discharge Date and Diagnosis - Problem List Patient Problems: Active and Suspected Problems (Last Updated 11/22/20 @ 14:12 by Crista Liang) Unstable angina (Acute) Chest pain (Acute) Elevated troponin (Acute) Date of Admission: 11/22/20 Date of Discharge: 11/23/20 - Primary Discharge Diagnosis Acute Problems: Active Problems (Last Updated 11/22/20 @ 14:12 by Crista Liang) Unstable angina (Acute) Chest pain (Acute) Elevated troponin (Acute) - Secondary Discharge Diagnosis Chronic Problems: Chronic Problems (Last Updated 11/22/20 @ 14:12 by Crista Liang) Chronic obstructive pulmonary disease (COPD) (Chronic) Tobacco use (Chronic) Obesity (BMI 30.0-34.9) (Chronic) Atherosclerosis of [place] coronary artery of [place] heart without angina pectoris (Chronic) History of non-ST elevation myocardial infarction (NSTEMI) (Chronic 11/22/20) 11/2016; 02/20/19 Essential hypertension (Chronic) Hyperlipidemia (Chronic) Nicotine dependence (Chronic) Hospital Course and Treatment Imaging Results: Diagnostic Data Chest X-Ray 11/22/20 01:35 IMPRESSION: No acute cardiopulmonary abnormality. at 0216 Reported and signed by: Rachael Huynh MD Electronically Signed: Rachael Huynh MD at 2:16 EST Tel , Service support , cardiology- Dr Flores Operations: None Procedures: Cardiac catheterization Summary of Care Provided: The patient is a 50 year old M with a past medical history as outlined was admitted through the ED on 11/22/2020 with a complaint of chest pain which woke him up from sleep. Pain was pressure-like and radiated to his left shoulder. Patient had a heart cardiac cath in May 2017 with placement of a drug-eluting stent in the second obtuse marginal branch and his last cardiac cath in 2017 showed a normal left main coronary artery and left anterior descending artery with 95% proximal and 50% mid stenosis with circumflex artery with 40% stenosis in the RCA which was normal. Had angioplasty and stenting of the LAD. On admission, she had T wave inversions inferiorly which was similar to previous EKGs and troponins was initially 0.257 and trended up to a peak of 0.5. He was admitted and managed for non-STEMI. He had cardiac cath on 11/22/2020 which showed 95% stenosis and ulcerated plaque in the proximal to mid RCA and stenosis of the distal posterior descending artery. He had PCI with drug-eluting stent placement in the proximal RCA and proximal posterolateral branch of the distal RCA. He was continued on his aspirin, Plavix and statin as well as metoprolol and lisinopril. Of note patient's blood sugar was elevated on admission and A1c done was 7. Patient was started on insulin sliding scale and plan was to start patient on Metformin. Patient however refused to take Metformin as he said it tore his stomach up. Patient was informed that there were other oral medications for diabetes which he could be prescribed; patient however refused to take any prescription and said he preferred to follow-up with his PCP for management of his diabetes. Patient was also counseled strongly to quit smoking as he was still smoking more than 1 pack daily. Patient was discharged home on 11/23/2020. He is to follow-up with his primary care doctor and cardiology. Patient seen and examined prior to discharge. He felt well and had no complaints. Review of symptoms otherwise negative. Labs and vitals reviewed. Home medication reviewed and reconciled. O/E: Vital Signs Temp Pulse Resp BP Pulse Ox 97.8 F 70 16 181/91 H 95 11/23/20 08:30 11/23/20 08:30 11/23/20 08:30 11/23/20 08:30 11/23/20 08:30 [] General: Alert, Oriented x3, Cooperative, No apparent distress HEENT: Atraumatic, PERRLA, EOMI, Normocephalic Oral: Dry Mucosa Neck: Supple, No JVD, Negative Carotid Bruits Lungs: Clear to auscultation, Normal air movement, No rhonchi, No wheeze, No rales Cardiovascular: Regular rate, Regular Rhythm, Normal S1, Normal S2, No murmurs Abdomen: Bowel Sounds Present, Soft, Non Tender Extremities: No clubbing, No cyanosis, No edema, Capillary Refill Less than 3 Seconds Skin: No rashes, No breakdown Musculoskeletal: No Tenderness to Palpation of Joints or Extremities Lymphatic: No Cervical, Supraclavicular, or Inguinal Adenopathy Neurological: Cranial nerves II-XII grossly intact, Neuro grossly intact, Motor Exam 5/5 strength throughout Psych/Mental Status: Normal Affect, Appropriate, Alert and oriented to time, place, person, mood and affect Plan is for discharge home today. Patient Problems: Active and Suspected Problems (Last Updated 11/22/20 @ 14:12 by Crista Liang) Unstable angina (Acute) Chest pain (Acute) Elevated troponin (Acute) - Physical Exam Vitals/I&O's: Vital Signs Temp Pulse Resp BP Pulse Ox 97.8 F 70 16 181/91 H 95 11/23/20 08:30 11/23/20 08:30 11/23/20 08:30 11/23/20 08:30 11/23/20 08:30 Oxygen Flow Rate (L/min) 2 Oxygen Delivery Method Room Air Weight: 231 lb 4.238 oz Body Mass Index (BMI) 35.2 Intake and Output for Last 24 Hours 11/21/20 11/22/20 11/23/20 23:59 23:59 23:59 Intake Total 1885.83 / 2365.83 480 / 480 Balance 1885.83 / 2365.83 480 / 480 Microbiology Past 72 Hours 11/22/20 03:00 Mucosa - Nasopharyngeal SARS-CoV-2 Antigen (Rapid) - Final Laboratory Results 11/23/20 05:20: WBC 9.8, RBC 5.12, Hgb 15.0, Hct 45.1, MCV 88.1, MCH 29.3, MCHC 33.3, RDW Std Deviation 42.3, RDW Coeff of Narcisa 13.0, Plt Count 271, MPV 10.9 11/23/20 05:20: Sodium 140, Potassium 3.3 L, Chloride 106, Carbon Dioxide 31.0, Anion Gap 3 L, BUN 9, Creatinine 0.83, Estim Creat Clear Calc 104.16, Est GFR (MDRD) Af Amer 127, Est GFR (MDRD) Non-Af 105, BUN/Creatinine Ratio 10.9, Glucose 122 H, Calcium 9.1, Total Bilirubin 0.50, AST 28, ALT 69 H, Alkaline Phosphatase 111, Total Protein 7.3, Albumin 3.5, Globulin 3.8, Albumin/Globulin Ratio 0.9 Discharge Diet: Low fat/ Low Cholesterol Discharge Activity: Return to Normal Activity Weight Bearing Status: Weight bearing as tolerated Call your doctor if you observe: Fever of 101 or Higher, Shortness of breath, Dizziness, Swelling in the ankles, Chest pain, Increased palpitations (irregular heartbeat) Home Medications: Medications to take at Discharge Budesonide/Formoterol 80-4.5 [Symbicort 80-4.5 Mcg Inhaler] 2 puff INHALATION BID 12/09/16 Aspirin 81 mg PO DAILY #90 tab.chew 12/12/16 cholecalciferol (vitamin D3) 1,250 mcg (50,000 unit) tablet 50,000 unit PO QWEEK 02/20/19 clonidine HCl 0.2 mg tablet 0.2 mg PO BID #60 tab 03/19/20 isosorbide mononitrate 60 mg tablet,extended release 24 hr 60 mg PO DAILY #60 tab 03/19/20 amlodipine 10 mg tablet 10 mg PO DAILY #90 tab 10/20/20 atorvastatin 40 mg tablet 40 mg PO QHS #90 tab 10/20/20 clopidogrel 75 mg tablet 75 mg PO DAILY #90 tab 10/20/20 hydrochlorothiazide 25 mg tablet 25 mg PO DAILY #90 tab 10/20/20 lisinopril 20 mg tablet 20 mg PO BID #180 tab 10/20/20 metoprolol tartrate 100 mg tablet 100 mg PO BID #180 tab 10/20/20 Ondansetron [Zofran Odt] 4 mg PO Q8H PRN PRN #10 tab 11/19/20 Other Amb Orders: Phase II, Outpatient Cardiac Rehab Location: None Selected Primary Care Physician: Hesham Lao MD [Primary Care Provider] - Please follow up with your Primary Care Physician in: 1-2 weeks Please Follow Up With: Eric Flores MD When: 2-3 weeks Patient Instructions: What Is Angina?, Recognizing a Heart Attack or Angina, Warning Signs of a Heart Attack, ED Heart Disease Risk Factors Disposition: Home Minutes spent on discharge:: 45 Patient Condition:: Stable Medical Necessity - Tobacco Use Smoking Status: Current every day smoker Tobacco Use: Cigarettes Meaningful Use Info Meaningful Use Diagnoses (Choose all that apply): AMI - AMI/Post PCI/Angioplasty Aspirin given w/in 24hrs of arrival?: Yes ASA at discharge?: Yes Antiplatelet Therapy at Discharge:: Yes Statins at discharge?: Yes Michael/ARB at discharge?: Yes Beta Christi at discharge?: Yes Done w/ Acute VT measure.: Yes Inpatient E&M: 93329 Disch Hosp
--- NOTE | 2020-11-24 15:56 | CASEMGMT ---
VETO LUBIN Discharge Follow-Up Phone Call. Laura: Teddy Strata: 3 Discharge Date: 11/23/20 Adm Dx: CP, elevated troponin Call to pt to inquire about how he has been doing since being discharged from the hospital. Pt states, I'm pretty good. He states he does not have any questions about the discharge instructions or medications. He states he is aware he is to make appt with his PCP but has not done so yet. He is also aware of appt needed w/Dr Flores and states he was informed Dr Flores's office would contact him to schedule an appt in the next couple of weeks. He denies having any questions/concerns/needs. VETO LUBIN thanked pt for choosing [facility]. José Miguel MUÑOZ RN, CM
== END 2020-11-23 08:55 | disposition home or self-care (01) | DRG 247 ==
LOC: ED 01:56 → PCU 02:49
PROVIDERS: Internal Medicine Cardiovascular Disease; Admitting Provider Family Medicine; Emergency Provider Emergency Medicine; PCP Family Medicine; Referring Provider Family Medicine; Visit Provider Student in an Organized Health Care Education/Training Program
DX: I21.4 Non-ST elevation (NSTEMI) myocardial infarction (principal); I25.700 Atherosclerosis of coronary artery bypass graft(s), unspecified, with unstable angina pectoris; I25.2 Old myocardial infarction; Z91.14 Patient's other noncompliance with medication regimen; J44.9 Chronic obstructive pulmonary disease, unspecified; E11.65 Type 2 diabetes mellitus with hyperglycemia; E66.9 Obesity, unspecified; Z68.35 Body mass index [BMI] 35.0-35.9, adult; E78.00 Pure hypercholesterolemia, unspecified; G89.29 Other chronic pain; I10 Essential (primary) hypertension; E78.5 Hyperlipidemia, unspecified; Z79.82 Long term (current) use of aspirin; Z79.02 Long term (current) use of antithrombotics/antiplatelets; F17.210 Nicotine dependence, cigarettes, uncomplicated; Z79.899 Other long term (current) drug therapy
CPT/HCPCS: 36415; 71045; 80048; 80053; 80061; 83036; 83735; 84484; 85025; 85027; 85347; 85610; 85730; 87426; 92928; 92929; 93005; 93306; 93458; 94640; 94762; 99152; 99153; 99285; 99406; J7030; Q9957; Q9967; A4216; C1769; C1874; C1887; C1894; C8929; C9600; C9601; J2405

== ENCOUNTER 2020-12-31 02:21 | Emergency (ER) | payer OTHER, SELFPAY ==
[2020-03-18 10:45] VITALS: BMI 35.6
[2020-11-22 03:42] VITALS: BMI 35.2
[2020-12-31 02:21] VITALS: BP 164/112; PULSE 90; RESP 18; TEMP 36.6; O2SAT 98; BMI 35.2
--- NOTE | 2020-12-31 02:24 | ED.DCSUM_ITS ---
History of Present Illness Chief Complaint: Flank Pain Informant: Patient Onset: Hours - 2 hours prior to presentation Context: Sudden Onset Timing: Continuous, Waxes and wanes Quality: Pain Location: Left flank Current Severity: Severe Maximum Severity: Severe Worsened by: Nothing Relieved by: Nothing Associated Symptoms: Nausea Narrative: This is a 50-year-old male who presents with abrupt onset of left flank pain that awoke him from sleep at 0030. He presents because of severe pain with nausea. He has history of right ureterolithiasis November 23, 2020. He had a nonobstructing 3 mm stone noted on the left. He denies fever, chills night sweats. He denies upper respiratory symptoms. He denies cardiac or respiratory symptoms. He denies hematuria or dysuria. He denies testicular pain. There is no history of trauma. He has not noted a rash. He reports nausea to codeine which is not an allergy. Prior similar symptoms: Yes - November 23, 2020 Recent Illness/Hospitalization: No - Past Medical History (1) Atherosclerosis of [place] coronary artery of [place] heart without angina pectoris Status: Chronic (2) Chronic obstructive pulmonary disease (COPD) Status: Chronic (3) Essential hypertension Status: Chronic (4) Hyperlipidemia Status: Chronic (5) Nicotine dependence Status: Chronic (6) Obesity (BMI 30.0-34.9) Status: Chronic Past Medical History - Allergies and Home Meds Allergies/Adverse Reactions: Allergies amoxicillin trihydrate [From Augmentin] Allergy (Verified 12/31/20 02:24) Rash potassium clavulanate [From Augmentin] Allergy (Verified 12/31/20 02:24) Rash codeine Adverse Reaction (Verified 12/31/20 02:24) Nausea Primary Care Physician: Hesham Lao MD [Primary Care Provider] - Prior records reviewed: Yes Surgical History: appendectomy, herniorrhaphy, - - Cervical spine fusion surgery x 2, Hernia repair, PCI x 5, appendectomy. Lives: Spouse/ Significant Other Smoking Status: Current every day smoker Alcohol: Rare Drugs: None - Family History Maternal Family History: Family History (Last Reviewed 10/14/19 @ 16:[address] Eric Flores MD) Sister Myocardial infarction, Onset Age: 41 Diabetes Mother COPD (chronic obstructive pulmonary disease) Asthma Rheumatoid arthritis Grandmother Diabetes Family History: Reports: Pulmonary Disease, - - Rheumatoid arthritis. Paternal Family History: Family History (Last Reviewed 10/14/19 @ 16:[address] Eric Flores MD) Sister Myocardial infarction, Onset Age: 41 Diabetes Mother COPD (chronic obstructive pulmonary disease) Asthma Rheumatoid arthritis Grandmother Diabetes Family History: Reports: Heart Disease, Hypertension Sibling Family History: Family History (Last Reviewed 10/14/19 @ 16:[address] Eric Flores MD) Sister Myocardial infarction, Onset Age: 41 Diabetes Mother COPD (chronic obstructive pulmonary disease) Asthma Rheumatoid arthritis Grandmother Diabetes Family History: Reports: Heart Disease, - - His sister at age of 41 because of heart attack. Review of Systems General: Denies: Chills, Fever, Malaise, Subjective, Sweats Eyes: Denies: Visual changes - bilaterally, Blurred Vision - bilaterally ENT: Denies: Rhinorrhea, Sore throat Cardiovascular: Denies: Chest pain, Palpitations Respiratory: Denies: Dyspnea, Cough, Dyspnea on exertion Gastrointestinal: Reports: Abdominal pain, Nausea. Denies: Vomiting, Diarrhea, Melena, Hematochezia Genitourinary: Reports: - - Urgency. Denies: Dysuria, Hematuria, Frequency Musculoskeletal: Reports: Back pain. Denies: Myalgias, Arthralgias, Neck pain Skin: Denies: Wounds Neurological: Denies: Headache, Weakness Endocrine: Denies: Polyuria, Polydipsia Physical Exam Vital Signs/Narrative: Vital Signs Temp Pulse Resp BP Pulse Ox 12/31/20 02:21 97.9 F 90 18 164/112 H 98 Inital Vital Signs reviewed: Yes General: Well nourished, Well developed, Obese, Acute Distress - Patient is pacing holding his left side. Head: Normocephalic, Atraumatic Eyes: Perrl, EOMI. Negative for: Pale conjunctiva, Scleral icterus ENT: Moist mucous membranes, No rhinorrhea Neck: Supple, Nontender, No lymphadenopathy, No JVD Cardiovascular: Regular rate, Regular rhythm, No murmurs, Normal S1, Normal S2 Respiratory: No distress, CTA bilaterally, Chest nontender Abdomen: Soft, Nontender, Normal bowel sounds Rectal: Deferred Back: Nontender, Normal Inspection, CVA tenderness - Left. Negative for: Spinal tenderness Extremities: Nontender, No edema Skin: Normal color, No rash, No Trauma. Negative for: Cyanosis, Diaphoresis, Jaundice Neurological: Oriented x3, Cranial nerves II-XII grossly intact, Normal Strength, Normal Sensation, Normal Gait Psychological: Normal affect Diagnostic/Tx/Re-eval Laboratory Results 12/31/20 12/31/20 12/31/20 02:35 02:35 02:35 WBC 13.4 H RBC 5.00 Hgb 14.9 Hct 44.7 MCV 89.4 MCH 29.8 MCHC 33.3 RDW Std Deviation 43.1 RDW Coeff of Narcisa 13.2 Plt Count 303 MPV 9.8 Immature Gran % (Auto) 1.000 H Neut % (Auto) 58.2 Lymph % (Auto) 26.7 [place] % (Auto) 11.2 H Eos % (Auto) 2.2 Baso % (Auto) 0.7 Absolute Neuts (auto) 7.8 H Absolute Lymphs (auto) 3.57 Nucleated RBC % 0 Sodium 137 Potassium 3.6 Chloride 103 Carbon Dioxide 30.0 Anion Gap 4 L BUN 21 H Creatinine 1.36 H Estim Creat Clear Calc 63.57 Est GFR (MDRD) Af Amer 72 Est GFR (MDRD) Non-Af 59 L BUN/Creatinine Ratio 15.4 Glucose 148 H Calcium 9.5 Urine Color Yellow Urine Clarity Sl. Cloudy Urine pH 5.0 Ur Specific [place] 1.025 Urine Protein 100 H Urine Glucose (UA) Normal Urine Ketones 5 H Urine Occult Blood 250 H Urine Nitrite Negative Urine Bilirubin Negative Urine Urobilinogen 1 H Ur Leukocyte Esterase 25 H Urine RBC 50-100 SEEN Urine WBC 0-5 SEEN Ur Squamous Epith Cells 0-5 SEEN Urine Bacteria RARE Hyaline Casts 0-5 SEEN Urine Mucus 0 SEEN Creatinine is elevated from prior at 1.36 with a GFR of 59. Urine reveals hematuria without evidence of infection. Patient reports marked improvement after IV Toradol, morphine and Zofran. Since his creatinine is elevated he was not prescribed anti-inflammatory. He was prescribed Percocet and Zofran. - Medical Decision Making Patient presents with acute left flank pain rating anteriorly. Since he had a scan approximately 1 month ago which revealed a nonobstructing stone on the left suspect this is the etiology of his left flank pain. In light of his age and medical problems CBC was obtained to assess H&H and white count. Basic metabolic panel to assess renal function and glucose. UA to assess for infection. If there is evidence of infection will obtain CT otherwise will observe. If pain cannot be managed will obtain CT to assess location of stone. ED Disposition - Plan for ED Patient: Disposition: Home or Assisted Living Diagnosis: Ureteral stone with hydronephrosis Instructions: ED Kidney Stone w/ Colic Prescriptions: Oxycodone HCl/Acetaminophen [Percocet 5/325] 1 tab PO Q6H PRN PRN 5 Days #20 tab PRN Reason: Left flank pain Prescription Printed Ondansetron [Zofran Odt] 4 mg PO Q8H PRN PRN #10 tab PRN Reason: Nausea Prescription Printed Referrals: Hesham Lao MD [Primary Care Provider] - Joey Rosales MD [STAFF PHYSICIAN] - 5-7 Days
[2020-12-31] MEDS: Ondansetron 4 MG/2 ML Vial IV (02:33)
[2020-12-31] MEDS: 0.9% Normal Saline 1,000 ML 250 ML IV (02:33)
[2020-12-31] MEDS: Ketorolac 15 MG/ML Vial IV (02:34)
[2020-12-31] MEDS: Morphine 4 MG/ML Syringe IV (02:35)
[2020-12-31 02:41] LABS: Absolute Lymphocyte Count 3.57 X10^3/uL (0.83-4.51); Absolute Neutrophil Count 7.8 X10^3/uL (2.0-7.7); Basophil# 0.09 X10^3/uL; Basophil% 0.7 % (0-1); Eosinophil# 0.29 X10^3/uL; Eosinophils% 2.2 % (0-5); Hematocrit 44.7 % (40-54); Hemoglobin 14.9 g/dL (13.0-16.5); Lymphocyte # 3.57 X10^3/ul (4.0); Lymphocyte % 26.7 % (19-41); Mean Corp Hgb Conc 33.3 g/dL (32-36); Mean Corpuscular Hgb 29.8 pg (27.0-32.0); Mean Corpuscular Volume 89.4 fL (80-94); Mean Platelet Vol. 9.8 fl (6.2-12.0); Monocyte# 1.49 X10^3/uL; Monocyte% 11.2 % (0-10); NRBC Flagged by Analyzer 0 % (0-5); Neutrophil # 7.79 X10^3/uL (2.7-7.7); Neutrophil % 58.2 % (47-70); Platelet Count 303 K/mm3 (150-450); RBC Distribution Width CV 13.2 % (11.6-14.6); RBC Distribution Width SD 43.1 fl (35.1-43.9); White Blood Count 13.4 K/mm3 (4.4-11.0)
[2020-12-31 02:42] LABS: Mucous, Urine 0 SEEN /hpf (<or=2+)
[2020-12-31 02:43] LABS: Color, Urine Yellow (Yellow); Glucose, Dipstick Normal (Normal); Ketone-Dipstick 5 mg/dl (Negative); Leukocyte Esterase-Dipstick 25 /ul (Negative); Nitrite-Dipstick Negative (Negative); Occult Blood-Urine 250 /ul (Negative); Protein-Dipstick 100 mg/dl (Negative); Specific Gravity, Urine 1.025 (1.002-1.030); Urine Bilirubin Dipstick Negative (Negative); Urine Clarity Sl. Cloudy (Clear); Urine Urobilinogen 1 mg/dl (Normal)
[2020-12-31 02:50] LABS: Red Blood Cells-Urine 50-100 SEEN /hpf (0-5); White Blood Cells 0-5 SEEN /hpf (0-5)
[2020-12-31 02:51] LABS: Bacteria RARE /hpf (None Seen); Squamous Epithelial Cells - UA 0-5 SEEN /hpf (0-5)
[2020-12-31 02:52] LABS: Hyaline Cast 0-5 SEEN /lpf (0-5)
[2020-12-31 02:54] LABS: Anion Gap 4 (5-15); BUN 21 mg/dL (7-18); BUN/Creat Ratio 15.4 RATIO (10-20); Calcium,Total 9.5 mg/dL (8.5-10.1); Chloride 103 mmol/L (98-107); Creatinine, Serum 1.36 mg/dL (0.70-1.30); EST Glomerular Filtration Rate 59 mL/min (>60); Est Glom Filt Rate - Afr Amer 72 mL/min (>60); Estimated Creatinine Clearance 63.57 ml/min; Glucose 148 mg/dL (74-106); Potassium 3.6 mmol/L (3.5-5.1); Sodium Level 137 mmol/L (136-145)
[2020-12-31 03:17] VITALS: BP 167/102; PULSE 77; RESP 16; O2SAT 95
== END 2020-12-31 03:21 | disposition home or self-care (01) ==
PROVIDERS: Emergency Provider Emergency Medicine; PCP Family Medicine
DX: N13.2 Hydronephrosis with renal and ureteral calculous obstruction (principal); E66.9 Obesity, unspecified; I10 Essential (primary) hypertension; E78.5 Hyperlipidemia, unspecified; I25.10 Atherosclerotic heart disease of native coronary artery without angina pectoris; J44.9 Chronic obstructive pulmonary disease, unspecified; Z87.442 Personal history of urinary calculi; Z79.82 Long term (current) use of aspirin; Z79.899 Other long term (current) drug therapy; F17.200 Nicotine dependence, unspecified, uncomplicated
CPT/HCPCS: 80048; 81001; 85025; 96361; 96374; 96375; 99283; J7030; A4216; J2405

== ENCOUNTER 2021-01-21 07:11 | Emergency (ER) | payer OTHER, SELFPAY ==
[2020-03-18 10:45] VITALS: BMI 35.6
[2021-01-07 12:36] VITALS: BMI 35.7
[2021-01-21 07:11] VITALS: BP 166/89; PULSE 76; RESP 18; TEMP 36.9; O2SAT 98; BMI 33.9
--- NOTE | 2021-01-21 07:23 | EKG12_ITS ---
Test Reason : Blood Pressure : / mmHG Vent. Rate : 077 BPM Atrial Rate : 077 BPM P-R Int : 182 ms QRS Dur : 112 ms QT Int : 414 ms P-R-T Axes : 050 -04 004 degrees QTc Int : 468 ms Normal sinus rhythm Poor R wave progression Anteroseptal IL, age undetermined, cannot be excluded Confirmed by ANNE EVANGELISTA, ERIC ([id number]), supervising film or videotape editor EVELIO CURRY ([id number]) on 01/24/2021 2:44:20 PM Referred By: RUBINA Confirmed By:ERIC RODRÍGUEZ MD
--- NOTE | 2021-01-21 07:24 | CT_ITS ---
STUDY: CTA HEAD AND NECK WITH CONTRAST REASON FOR EXAM: Male, 50 years old. paresthesias. RADIATION DOSAGE (If Supplied By Facility): CTDIvol = ( 31.38 ) mGy, DLP = ( 1647.56 ) mGycm TECHNIQUE: CT angiography was performed with a multi-detector CT scanner. Data acquisition was obtained from the skull base through the vertex following intravenous administration of 100 ML ISOVUE 370. MIP images were reconstructed from the axial data set. Post-processing of the angiographic images was performed, with multiplanar reformation and 3D reconstruction. Individualized dose optimization techniques were used for this CT. COMPARISON: No relevant priors. FINDINGS: Normal bilateral petrous carotid arteries. Normal right cavernous carotid artery with a normal supraclinoid bifurcation. Normal left cavernous carotid artery with a normal supraclinoid bifurcation. Normal right A1 segments of the anterior cerebral artery. Normal left A1 segments of the anterior cerebral artery. Normal intact anterior communicating artery (ACOM). Normal bilateral A2 segments of the anterior cerebral arteries. Normal right M1 and M2 segments of the middle cerebral arteries, with a normal M1 bifurcation. Normal left M1 and M2 segments of the middle cerebral arteries, with a normal M1 bifurcation. Normal right posterior communicating artery (PCOM). Normal left posterior communicating artery (PCOM). Normal bilateral vertebral arteries. Normal basilar artery with a normal basilar bifurcation. The visualized bilateral superior cerebellar (SCA) arteries are normal. Normal bilateral P1, P2 and visualized P3 segments of the posterior cerebral arteries. There is no demonstrated aneurysm of the [place] of [place]. There is no demonstrated abnormality of the visualized brain. Partial opacification of the ethmoid sinuses bilaterally. Mucosal retention cysts or polyps in the maxillary sinuses. Partial opacification of the sphenoid sinus. AORTIC ARCH: Normal visualized aortic arch. Normal origins of the brachiocephalic, left common carotid, and left subclavian arteries. RIGHT CAROTID ARTERIES: Normal right common carotid artery (CCA). Normal right common carotid bulb. Normal origin of the right internal carotid (ICA) artery without a hemodynamically significant stenosis. Normal visualized cervical portion of the right internal carotid artery. Normal origin of the right external carotid artery (ECA). LEFT CAROTID ARTERIES: Normal left common carotid artery (CCA). Normal left common carotid bulb. Normal origin of the left internal carotid (ICA) artery without a hemodynamically significant stenosis. Normal visualized cervical portion of the left internal carotid artery. Normal origin of the left external carotid artery (ECA). VERTEBRAL ARTERIES: There is enhancement within the bilateral vertebral arteries with a small left vertebral artery, and a dominant right vertebral artery. CT/CTA Head AND Neck W/ Contrast IMPRESSION: Normal CTA Head and neck with contrast. Sinusitis. Electronically Signed: Jin Woodall MD at 8:54 EST , Service support ,
--- NOTE | 2021-01-21 07:25 | ED.VIS.GEN ---
History of Present Illness Chief Complaint: Dizziness Informant: Patient Onset: Today Current Severity: Mild Maximum Severity: Moderate Narrative: Patient present secondary to dizziness which she describes as a lightheaded sensation. He states he woke at 3 AM this morning with symptoms. He also has a left-sided headache and describes pressure above his left eye as well as in the left occiput. He states he has some numbness and tingling to the left face. Patient states he has had all these symptoms previously but usually they are very brief. Today symptoms seem to be more persistent. He also notes that when he walks he is tends to veer toward his left. Again this is been present with prior episodes as well. Patient denies recent URI type symptoms. He does admit to a smoker's cough. He denies recent head injury. - Past Medical History (1) Atherosclerosis of [place] coronary artery of [place] heart without angina pectoris Status: Chronic (2) Chronic obstructive pulmonary disease (COPD) Status: Chronic (3) Essential hypertension Status: Chronic (4) History of non-ST elevation myocardial infarction (NSTEMI) Status: Chronic Comment: 11/2016; 02/20/19 (5) Hyperlipidemia Status: Chronic (6) Ischemic cardiomyopathy Status: Chronic (7) Nicotine dependence Status: Chronic (8) History of coronary artery stent placement Status: Resolved Comment: WAN-OM2 w/ 2.75 x 14 mm Resolute Integrity 12/11/2016 WAN Mid D1 w/ 2.5 x 18 mm Resolute Integrity and WAN Prox LAD w/ 3.0 x 15 mm Resolute Integrity 02/21/19; PCI-WAN-Mid LCx w/ 2.25 x 12 mm Synergy MR Stent and 3.0 x 16 mm Synergy MR Stent 03/18/2020; [id number] w/ 3.0 x 12 mm Synergy Stent and WAN-Prox RCA w/ 3.5 x 20 MM Synergy Stent 11/22/2020 Past Medical History - Allergies and Home Meds Allergies/Adverse Reactions: Allergies amoxicillin trihydrate [From Augmentin] Allergy (Verified 01/21/21 07:14) Rash potassium clavulanate [From Augmentin] Allergy (Verified 01/21/21 07:14) Rash codeine Adverse Reaction (Verified 01/21/21 07:14) Nausea Primary Care Physician: Eric Flores MD [STAFF PHYSICIAN] - Hesham Lao MD [Primary Care Provider] - Prior records reviewed: Yes Surgical History: appendectomy, herniorrhaphy, - - Cervical spine fusion surgery x 2, Hernia repair, PCI x 5, appendectomy. Lives: Spouse/ Significant Other Smoking Status: Current every day smoker - Family History Maternal Family History: Family History (Last Reviewed 01/07/21 @ 16:[address] Eric Flores MD) Sister Myocardial infarction, Onset Age: 41 Diabetes Mother COPD (chronic obstructive pulmonary disease) Asthma Rheumatoid arthritis Grandmother Diabetes Family History: Reports: Pulmonary Disease, - - Rheumatoid arthritis. Paternal Family History: Family History (Last Reviewed 01/07/21 @ 16:[address] Eric Flores MD) Sister Myocardial infarction, Onset Age: 41 Diabetes Mother COPD (chronic obstructive pulmonary disease) Asthma Rheumatoid arthritis Grandmother Diabetes Family History: Reports: Heart Disease, Hypertension Sibling Family History: Family History (Last Reviewed 01/07/21 @ 16:[address] Eric Flores MD) Sister Myocardial infarction, Onset Age: 41 Diabetes Mother COPD (chronic obstructive pulmonary disease) Asthma Rheumatoid arthritis Grandmother Diabetes Family History: Reports: Heart Disease, - - His sister at age of 41 because of heart attack. Review of Systems General: Denies: Chills, Fever Eyes: Denies: Visual changes - bilaterally ENT: Denies: Bilateral ear pain Cardiovascular: Denies: Chest pain, Palpitations Respiratory: Reports: Cough. Denies: Dyspnea Gastrointestinal: Denies: Abdominal pain, Nausea, Vomiting, Diarrhea Musculoskeletal: Denies: Neck pain, Back pain, Swelling, Extremity Pain Skin: Denies: Rash Neurological: Reports: Headache, Parasthesia Hematologic: Denies: Easy bruising, Easy bleeding Allergy: Denies: Uticaria Physical Exam Vital Signs/Narrative: Vital Signs Temp Pulse Resp BP Pulse Ox 01/21/21 07:11 98.4 F 76 18 166/89 H 98 Inital Vital Signs reviewed: Yes General: Well nourished, Well developed Head: Normocephalic ENT: Moist mucous membranes Neck: Supple Cardiovascular: Regular rate, Regular rhythm Respiratory: No distress, CTA bilaterally Abdomen: Soft, Nontender, Normal bowel sounds Back: Nontender Skin: Normal color Neurological: Alert, Oriented x3, Cranial nerves II-XII grossly intact, Normal Strength, Normal Sensation, - - [id number] testing Psychological: Normal affect Diagnostic/Tx/Re-eval Chest X-Ray - ED: 1 View, Read by ED Physician, Chronic Changes Impressions Head/Neck CTA 01/21/21 07:24 IMPRESSION: Normal CTA Head and neck with contrast. Sinusitis. Electronically Signed: Jin Woodall MD at 8:54 EST , Service support , Chest X-Ray 01/21/21 08:27 IMPRESSION: Borderline cardiomegaly. Findings suggestive of an early infiltrate in the medial aspect of the right lung base. Electronically Signed: Jin Woodall MD at 8:52 EST , Service support , Brain MRI 01/21/21 09:31 IMPRESSION: Normal unenhanced MRI of the brain. Electronically Signed: Jose Daniel Adler MD at 11:01 EST Tel , Service support , 01/21/21 07:24 CTA Head AND Neck W/ Contrast [CT] Stat 01/21/21 08:27 Chest 1 View (Portable) [RAD] Stat 01/21/21 09:31 MRI Brain [Brain without Contrast] [MRI] Stat Laboratory Results 01/21/21 01/21/21 07:35 07:35 WBC 11.5 H RBC 4.63 Hgb 14.3 Hct 41.3 MCV 89.2 MCH 30.9 MCHC 34.6 RDW Std Deviation 43.3 RDW Coeff of Narcisa 13.3 Plt Count 260 MPV 10.1 Immature Gran % (Auto) 0.600 Neut % (Auto) 66.4 Lymph % (Auto) 22.5 Hamlin % (Auto) 8.3 Eos % (Auto) 1.7 Baso % (Auto) 0.5 Absolute Neuts (auto) 7.6 Absolute Lymphs (auto) 2.59 Nucleated RBC % 0 Sodium 136 Potassium 3.8 Chloride 102 Carbon Dioxide 29.0 Anion Gap 5 BUN 16 Creatinine 0.98 Estim Creat Clear Calc 100.08 Est GFR (MDRD) Af Amer 104 Est GFR (MDRD) Non-Af 86 BUN/Creatinine Ratio 16.3 Glucose 226 H Calcium 9.0 Troponin I 0.043 - EKG Initial EKG Interpretation: Sinus Rhythm - Sinus at 77 with no acute ischemia. - Medical Decision Making During patient's work-up he got up to use the restroom. I exited another room to find nursing staff assisting the patient into a wheelchair. He stated after using the restroom he was walking back to his room when his left side became tingly and weak. He was walking to the left. Nursing staff helped him into a wheelchair and back into his bed. I entered the room to repeat his neurologic examination. At this time his NIH score is 0. Patient states on testing at this time he has no numbness or tingling. He states if we had checked him while in the park[place] he feels like his left side would have been weak and tingling on exam. Patient had blood work obtained that was largely unremarkable. Blood sugar was elevated to 220, however patient states he is borderline diabetic and drink Mountain Dew right before he came into the hospital. Chest x-ray was obtained. Per my interpretation there are chronic changes. Radiologist interpretation is suggestive of an early infiltrate in the right lung base. Patient has had no change in his chronic cough, no fever, no white count. I do not believe this represents an acute infection. CTA of the head and neck are unremarkable. I initially discussed with the patient admission for MRI and further therapy as he was still having some difficulty ambulating. He declines this and wishes just to have the MRI now and then go home if normal. MRI was obtained and is normal. At this time patient will be given Antivert to see if this helps his symptoms, although I did explain to patient and that I am not sure this is classic symptoms of vertigo. Patient again declines hospital admission for further evaluation. 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 He recommended the patient's clonidine be changed to 3 times daily instead of twice daily and attempts to limit the blood pressure fluctuations between doses. I did catch the patient before he left I did explain this to him. He voices understanding and agreement. Patient is referred to his PCP and anticipate they will refer her on to neurology as needed. ED Disposition - Plan for ED Patient: Disposition: Home or Assisted Living Diagnosis: Dizziness Instructions: ED Dizziness, Uncertain Cause Prescriptions: Meclizine HCl [Antivert] 25 mg PO 4X/DAY PRN PRN #20 tab PRN Reason: Dizziness Transmission Status: Received by [facility] [facility] Referrals: Hesham Lao MD [Primary Care Provider] - Eric Flores MD [STAFF PHYSICIAN] -
[2021-01-21] MEDS: 0.9% Normal Saline 1,000 ML 1000 ML IV (07:40)
[2021-01-21 07:46] LABS: Absolute Lymphocyte Count 2.59 X10^3/uL (0.83-4.51); Absolute Neutrophil Count 7.6 X10^3/uL (2.0-7.7); Basophil# 0.06 X10^3/uL; Basophil% 0.5 % (0-1); Eosinophils% 1.7 % (0-5); Hematocrit 41.3 % (40-54); Hemoglobin 14.3 g/dL (13.0-16.5); Lymphocyte # 2.59 X10^3/ul (4.0); Lymphocyte % 22.5 % (19-41); Mean Corp Hgb Conc 34.6 g/dL (32-36); Mean Corpuscular Hgb 30.9 pg (27.0-32.0); Mean Corpuscular Volume 89.2 fL (80-94); Mean Platelet Vol. 10.1 fl (6.2-12.0); Monocyte# 0.95 X10^3/uL; Monocyte% 8.3 % (0-10); NRBC Flagged by Analyzer 0 % (0-5); Neutrophil # 7.64 X10^3/uL (2.7-7.7); Neutrophil % 66.4 % (47-70); Platelet Count 260 K/mm3 (150-450); RBC Distribution Width CV 13.3 % (11.6-14.6); RBC Distribution Width SD 43.3 fl (35.1-43.9); Red Blood Count 4.63 M/mm3 (4.6-6.2); White Blood Count 11.5 K/mm3 (4.4-11.0)
[2021-01-21 08:01] LABS: Anion Gap 5 (5-15); BUN 16 mg/dL (7-18); BUN/Creat Ratio 16.3 RATIO (10-20); Chloride 102 mmol/L (98-107); Creatinine, Serum 0.98 mg/dL (0.70-1.30); EST Glomerular Filtration Rate 86 mL/min (>60); Est Glom Filt Rate - Afr Amer 104 mL/min (>60); Estimated Creatinine Clearance 100.08 ml/min; Glucose 226 mg/dL (74-106); Potassium 3.8 mmol/L (3.5-5.1); Sodium Level 136 mmol/L (136-145)
--- NOTE | 2021-01-21 08:13 | ED.RN ---
PT ASSISTED UP TO RESTROOM BY THIS RN. PT ABLE TO AMBULATE AND USE RESTROOM WITHOUT DIFFICULTY. UPON LEAVING RESTROOM PT BECAME DIZZY AND STUMBLED. THIS RN ASSISTED PT IN STANDING, PT PLACED IN WHEELCHAIR AND WHEELED BACK TO ROOM. PT SITTING IN WHEELCHAIR FOR A COUPLE MINUTES, REPORTS DIZZINESS HAD PASSED AND WITH MINIMAL ASSISTANCE TRANSFERS FORM WHEELCHAIR TO BED. DR. CESPEDES AT BEDSIDE. PT REPORTS NUMBNESS AND TINGLING TO LEFT SIDE DURING DIZZY EPISODE.
[2021-01-21 08:22] VITALS: BP 154/100; PULSE 71; RESP 23; O2SAT 96
--- NOTE | 2021-01-21 08:27 | RAD_ITS ---
STUDY: X-RAY CHEST REASON FOR EXAM: Male, 50 years old. Cough . Dizziness. Left-sided weakness. TECHNIQUE: Single AP portable view of the chest. COMPARISON: None. FINDINGS: EKG electrodes are seen. Increased markings in the medial aspect of the right lung base suggestive of possible early infiltrate. There is no demonstrated pleural abnormality. There is borderline cardiomegaly. Normal mediastinum and soniya. Normal visualized pulmonary arteries. Normal visualized aortic arch and descending thoracic aorta. Normal visualized thoracic spine. Normal visualized ribs, clavicles, and shoulders. There is no demonstrated abnormality of the visualized soft tissue structures of the upper abdomen. RAD/Chest 1 View (Portable) IMPRESSION: Borderline cardiomegaly. Findings suggestive of an early infiltrate in the medial aspect of the right lung base. Electronically Signed: Jin Woodall MD at 8:52 EST , Service support ,
--- NOTE | 2021-01-21 09:31 | MRI_ITS ---
STUDY: MRI BRAIN WITHOUT CONTRAST REASON FOR EXAM: Male, 50 years old. paresthesias -- cardiac stents TECHNIQUE: Standardized multiplanar fat and water weighted pulse sequences were obtained. COMPARISON: CT 01/21/2021 FINDINGS: Normal size of the ventricles and extra-axial spaces for the patient''s age. Normal white matter tracts of the supratentorial brain. There is no evidence for recent intracranial ischemia or other cause of cytotoxic edema on diffusion weighted imaging (DWI). Normal T2* images of the brain without demonstrated susceptibility artifact. There is no demonstrated hemosiderin stain. Normal bilateral basal ganglia. Normal thalami. There is no extra-axial fluid accumulation. Normal flow voids within the major intracranial circulation suggesting patency by spin echo criteria. Normal sella turcica, pituitary gland, infundibular stalk, optic chiasm and hypothalamus. Normal tectal plate and pineal gland. Normal midbrain, gualberto and medulla. Normal cerebellum. Normal basal cisterns. Normal bilateral temporal bones. Normal bilateral internal auditory canals. No demonstrated orbital abnormality, within the constraints of a routine brain study. Mucous retention cysts in the maxillary and sphenoid sinuses bilaterally consistent with sinusitis. Normal calvarium and skull base. Normal visualized soft tissue structures. Normal visualized upper cervical spine. MRI/Brain without Contrast IMPRESSION: Normal unenhanced MRI of the brain. Electronically Signed: Jose Daniel Adler MD at 11:01 EST Tel , Service support ,
[2021-01-21 10:56] VITALS: BP 163/106; PULSE 70; RESP 18; O2SAT 98
== END 2021-01-21 11:50 | disposition home or self-care (01) ==
PROVIDERS: Emergency Provider Emergency Medicine; PCP Family Medicine
DX: R42 Dizziness and giddiness (principal); R51.9 Headache, unspecified; R20.2 Paresthesia of skin; I10 Essential (primary) hypertension; J41.0 Simple chronic bronchitis; E78.5 Hyperlipidemia, unspecified; I25.10 Atherosclerotic heart disease of native coronary artery without angina pectoris; I25.2 Old myocardial infarction; I25.5 Ischemic cardiomyopathy; Z95.5 Presence of coronary angioplasty implant and graft; Z79.82 Long term (current) use of aspirin; Z79.02 Long term (current) use of antithrombotics/antiplatelets; Z79.899 Other long term (current) drug therapy; F17.200 Nicotine dependence, unspecified, uncomplicated
CPT/HCPCS: 70496; 70498; 70551; 71045; 80048; 84484; 85025; 93005; 96360; 96361; 99285; J7030; Q9967; A4216

== ENCOUNTER → 2021-02-22 16:44 | Outpatient (CLI) | payer OTHER, SELFPAY ==
[2020-03-18 10:45] VITALS: BMI 35.6
[2021-02-22 18:07] LABS: Absolute Lymphocyte Count 3.25 X10^3/uL (0.83-4.51); Absolute Neutrophil Count 8.2 X10^3/uL (2.0-7.7); Basophil# 0.08 X10^3/uL; Basophil% 0.6 % (0-1); Eosinophil# 0.11 X10^3/uL; Eosinophils% 0.9 % (0-5); Hematocrit 46.4 % (40-54); Hemoglobin 15.5 g/dL (13.0-16.5); Lymphocyte # 3.25 X10^3/ul (4.0); Lymphocyte % 25.2 % (19-41); Mean Corp Hgb Conc 33.4 g/dL (32-36); Mean Corpuscular Volume 89.9 fL (80-94); Mean Platelet Vol. 10.7 fl (6.2-12.0); Monocyte# 1.13 X10^3/uL; Monocyte% 8.8 % (0-10); NRBC Flagged by Analyzer 0 % (0-5); Neutrophil # 8.24 X10^3/uL (2.7-7.7); Platelet Count 292 K/mm3 (150-450); RBC Distribution Width CV 13.3 % (11.6-14.6); RBC Distribution Width SD 43.8 fl (35.1-43.9); Red Blood Count 5.16 M/mm3 (4.6-6.2); White Blood Count 12.9 K/mm3 (4.4-11.0)
[2021-02-22 18:35] LABS: Microalbumin:Creatinine Ratio 66.1 mg/g CRE (<30 mg/g CRE)
[2021-02-22 19:03] LABS: AST(SGOT) 8 U/L (15-37); Alanine Aminotransfer ALT/SGPT 35 U/L (16-61); Albumin, Serum 3.6 g/dL (3.2-5.0); Alkaline Phosphatase 97 U/L (45-117); Anion Gap 3 (5-15); BUN 14 mg/dL (7-18); BUN/Creat Ratio 15.3 RATIO (10-20); Calcium,Total 9.2 mg/dL (8.5-10.1); Chloride 104 mmol/L (98-107); Cholesterol 203 mg/dL (200); Creatinine, Serum 0.92 mg/dL (0.70-1.30); EST Glomerular Filtration Rate 93 mL/min (>60); Est Glom Filt Rate - Afr Amer 113 mL/min (>60); Globulin 3.7 g/dL (2.2-4.2); Glucose 157 mg/dL (74-106); High Density Lipoprotein 33 mg/dL; Potassium 3.7 mmol/L (3.5-5.1); Protein, Total 7.3 g/dL (6.4-8.2); Sodium Level 137 mmol/L (136-145); Thyroid Stim Hormone (TSH) 2.31 uIU/mL (0.358-3.74); Triglycerides 202 mg/dL; Very Low Density Lipoprotein 40 mg/dL (5-40)
== END ==
PROVIDERS: PCP Family Medicine; Visit Provider Family Medicine
DX: E11.9 Type 2 diabetes mellitus without complications (principal)
CPT/HCPCS: 36415; 80053; 80061; 82043; 82570; 83036; 84443; 85025

== ENCOUNTER → 2021-02-26 11:23 | Outpatient (CLI) | payer OTHER, SELFPAY ==
[2020-03-18 10:45] VITALS: BMI 35.6
[2021-01-07 12:36] VITALS: BMI 35.7
--- NOTE | 2021-02-26 11:28 | US_ITS ---
INDICATION: HTN EXAMINATION: US Kidney(s) complete (eg, kidneys and bladder) TECHNIQUE: Dave scale and color doppler images were obtained of the kidneys. COMPARISON: None. FINDINGS: RIGHT KIDNEY: Measures 11.8 x 4.9 x 6 cm. There is no hydronephrosis. No shadowing calculus, focal lesion or perinephric collection is demonstrated. LEFT KIDNEY: Measures 12.8 x 6 x 6.6 cm. There is no hydronephrosis. No shadowing calculus, focal lesion or perinephric collection is demonstrated. URINARY BLADDER: No acute abnormality. US/Kidney and Bladder IMPRESSION: Normal renal ultrasound. Electronically Signed: Gian Levi MD at 16:16 EDT Tel , Service support ,
== END ==
PROVIDERS: PCP Family Medicine; Visit Provider Family Medicine
DX: I10 Essential (primary) hypertension (principal)
CPT/HCPCS: 76770

== ENCOUNTER → 2021-03-02 11:29 | Outpatient (CLI) | payer OTHER, SELFPAY ==
[2020-03-18 10:45] VITALS: BMI 35.6
[2021-03-02 12:55] LABS: Protein, Urine (Random) 43.6 mg/dL (<11.9); Protein:Creat Ratio 233 mg/g CRE (0-200)
== END ==
PROVIDERS: PCP Family Medicine; Visit Provider Internal Medicine Nephrology
DX: E11.9 Type 2 diabetes mellitus without complications (principal)
CPT/HCPCS: 82570; 84156

== ENCOUNTER → 2021-03-11 07:50 | Outpatient (CLI) | payer OTHER, SELFPAY ==
[2020-03-18 10:45] VITALS: BMI 35.6
[2021-01-07 12:36] VITALS: BMI 35.7
--- NOTE | 2021-03-11 07:56 | RDU_ITS ---
Reason For Study: HTN Right Renal Artery Left Renal Artery Right renal artery ostium Left renal artery ostium 110.4/32.7 144.1/48.2 RSV/EDV. PSV/EDV. Right renal artery proximal Left renal artery proximal PSV/EDV 132.9/48.4 PSV/EDV. 93.5/29.9 . Right renal artery mid 132.9/43.3 Left renal artery mid 105.6/38 PSV/EDV. PSV/EDV . Right renal artery distal 120/44.3 Left renal artery distal 116.8/50.9 PSV/EDV. PSV/EDV. Right RAR 1.66. Left RAR 1.34. Right Renal Parenchyma Left Renal Parenchyma Upper Pole Medula 36.2/13.3 Left upper pole medulla 28.2/13 PSV/EDV. PSV/EDV . Right upper pole medulla EDR 0.37 . Left upper pole medulla EDR 0.46 . Right upper pole medulla R.I. Left upper pole medulla R.I. 0.54 . 0.63 . UP Cortex 18.7/8.3 PSV/EDV. [place] Cortx 24.3/9.7 PSV/EDV. Left upper pole cortex EDR 0.44 . Right upper pole cortex EDR 0.40 . Left upper pole cortex R.I. 0.56 . Right upper pole cortex R.I. 0.60 . Left lower Pole medulla 31.9/13 Right lower Pole medulla 31.6/14.2 PSV/EDV . PSV/EDV . Left lower pole medulla EDR 0.41 . Right lower pole medulla EDR 0.45 . Left lower pole medulla R.I. 0.59 . Right lower pole medulla R.I. Lower Pole Cortx 17.3/7.8 PSV/EDV. 0.55 . Left lower pole cortex EDR 0.45 . Lower Pole Cortex 25.2/10.6 Left lower pole cortex R.I. 0.55 . PSV/EDV. Left Renal Hilar Right lower pole cortex EDR 0.42 . LT Hilar avg 62.7/25.2 PSV/EDV . Right lower pole cortex R.I. 0.58 . Left hilar acceleration time 60 Right Renal Hilar m/sec. Right Hilar avg 67.2/24.3 PSV/EDV. Left Renal Dimensions Right hilar acceleration time 60 Left kidney size 11.97 cm . m/sec. Left cortical dimension 1.82 cm . Right Renal Dimensions Right kidney size 12.10 cm . Right cortical dimension 1.71 cm . Aorta Proximal abdominal aorta 1.42 x 1.42 cm . Proximal abdominal aorta peak systolic velocity is 86.9 cm/sec . Distal abdominal aorta 1.48 x 1.48 cm . Distal abdominal aorta peak systolic velocity is 112.5 cm/sec . VL/Renal Artery Duplex Ultrasound Interpretation Summary 1.42 x 1.42 centimeter diameter proximal abdominal aorta Less than 60% stenosis bilateral renal arteries Right renal length normal at 12.1 cm Left renal length normal 11.97 cm Ordering Physician: Hesham Lao Referring Physician: Hesham Lao Performed By: Roya Ralph RVT
== END ==
PROVIDERS: PCP Family Medicine; Referring Provider Family Medicine; Visit Provider Family Medicine
DX: I10 Essential (primary) hypertension (principal)
CPT/HCPCS: 93975

== ENCOUNTER → 2021-04-06 09:01 | Outpatient (CLI) | payer OTHER, SELFPAY ==
[2020-03-18 10:45] VITALS: BMI 35.6
[2021-01-07 12:36] VITALS: BMI 35.7
[2021-04-06 09:11] LABS: Red Blood Cells-Urine 0 SEEN /hpf (0-5); Squamous Epithelial Cells - UA 0 SEEN /hpf (0-5)
[2021-04-06 10:11] LABS: Color, Urine Yellow (Yellow); Glucose, Dipstick 50 mg/dl (Normal); Ketone-Dipstick 5 mg/dl (Negative); Leukocyte Esterase-Dipstick 25 /ul (Negative); Nitrite-Dipstick Negative (Negative); Occult Blood-Urine 10 /ul (Negative); Protein-Dipstick 100 mg/dl (Negative); Specific Gravity, Urine 1.025 (1.002-1.030); Urine Bilirubin Dipstick Negative (Negative); Urine Clarity Clear (Clear); Urine Urobilinogen Normal (Normal)
[2021-04-06 10:16] LABS: Erythrocyte Sedimentation Rate 18 mm/hr (0-20)
[2021-04-06 10:18] LABS: Bacteria 1+ /hpf (None Seen); Mucous, Urine 2+ /hpf (<or=2+); White Blood Cells 0-5 SEEN /hpf (0-5)
[2021-04-06 10:19] LABS: Absolute Lymphocyte Count 2.27 X10^3/uL (0.83-4.51); Absolute Neutrophil Count 8.1 X10^3/uL (2.0-7.7); Basophil# 0.07 X10^3/uL; Basophil% 0.6 % (0-1); Eosinophil# 0.19 X10^3/uL; Eosinophils% 1.6 % (0-5); Hematocrit 47.6 % (40-54); Lymphocyte # 2.27 X10^3/ul (0.83-4.51); Lymphocyte % 19.2 % (19-41); Mean Corp Hgb Conc 33.6 g/dL (32-36); Mean Corpuscular Hgb 29.6 pg (27.0-32.0); Mean Platelet Vol. 10.4 fl (6.2-12.0); Monocyte# 1.13 X10^3/uL; Monocyte% 9.6 % (0-10); NRBC Flagged by Analyzer 0 % (0-5); Neutrophil % 68.4 % (47-70); Platelet Count 299 K/mm3 (150-450); RBC Distribution Width CV 12.9 % (11.6-14.6); RBC Distribution Width SD 41.4 fl (35.1-43.9); Red Blood Count 5.41 M/mm3 (4.6-6.2); White Blood Count 11.8 K/mm3 (4.4-11.0)
[2021-04-06 11:14] LABS: Albumin, Serum 3.8 g/dL (3.2-5.0); BUN 15 mg/dL (7-18); BUN/Creat Ratio 16.6 RATIO (10-20); Calcium,Total 9.2 mg/dL (8.5-10.1); Chloride 102 mmol/L (98-107); EST Glomerular Filtration Rate 95 mL/min (>60); Est Glom Filt Rate - Afr Amer 114 mL/min (>60); Glucose 203 mg/dL (74-106); Phosphorus 2.7 mg/dL (2.5-4.9); Potassium 3.8 mmol/L (3.5-5.1); Sodium Level 138 mmol/L (136-145)
[2021-04-11 06:06] LABS: Immunoglobulin A 125 mg/dL (90-386); Immunoglobulin G 1035 mg/dL (603-1613); Immunoglobulin M 149 mg/dL (20-172)
[2021-04-11 07:37] LABS: Immunoglobulin E 124 IU/mL (6-495)
== END ==
PROVIDERS: Internal Medicine Pulmonary Disease; PCP Family Medicine; Referring Provider Internal Medicine Nephrology; Visit Provider Internal Medicine Nephrology
DX: R05 Cough (principal); R06.00 Dyspnea, unspecified; I10 Essential (primary) hypertension
CPT/HCPCS: 36415; 80069; 81001; 82784; 82785; 85025; 85652; 86140; 87070; 87077; 87101; 87205

== ENCOUNTER → 2021-04-22 09:52 | Outpatient (CLI) | payer OTHER, SELFPAY ==
[2020-03-18 10:45] VITALS: BMI 35.6
--- NOTE | 2021-04-22 09:56 | ECHOD_ITS ---
Reason For Study: ISCHEMIC CARDIOMYOPATHY Procedure This was a 2D Doppler, Color Flow transthoracic echocardiogram. The study was technically difficult. Exam performed in department. Left Ventricle Normal LV size. Moderate concentric left ventricular hypertrophy. Apical false tendon noted. Left ventricular systolic function is normal. The estimated ejection fraction is 65 %. Diastolic function is indeterminate. No regional wall motion abnormalities noted. Right Ventricle Normal RV size. Normal systolic function. Atria Normal left atrium. Normal right atrium. No doppler evidence for ASD. Mitral Valve There is no mitral annular calcification. Normal mitral valve. Trivial mitral valve insufficiency. Tricuspid Valve Normal tricuspid valve. Trivial tricuspid valve insufficiency. Right ventricular systolic pressure estimated to be 20 mmHg. Aortic Valve Trisinus/trileaflet aortic valve. Mild focal aortic valve calcification. Pulmonic Valve The pulmonic valve is not well visualized. Great Vessels Normal sized aortic root. Pericardium/Pleural No pericardial effusion. MMode/2D Measurements & Calculations LVIDd: 4.3 cm IVSd: 1.5 cm Ao root diam: 3.3 cm LVIDs: 3.0 cm LVPWd: 1.4 cm RVDd: 3.1 cm FS: 30.3 % LAV(MOD-bp): 47.5 ml LVAd ap4: 33.0 cm2 SV(MOD-sp4): 68.9 ml LAV(MOD-bp) Indexed: 27.4 ml/m2 LVLd ap4: 8.2 cm LAV(MOD-sp2): 50.7 ml EDV(MOD-sp4): 108.5 ml LAV(MOD-sp4): 42.9 ml EDV(sp4-el): 112.5 ml LVAs ap4: 17.7 cm2 LVLs ap4: 6.7 cm ESV(MOD-sp4): 39.7 ml ESV(sp4-el): 39.5 ml EF(MOD-sp4): 63.5 % EF(sp4-el): 64.9 % SV(sp4-el): 73.1 ml LA A4 area: 17.0 cm2 LA dimension(2D): 3.6 cm RA A4 area: 13.6 cm2 Time Measurements MV dec time: 0.25 sec Doppler Measurements & Calculations MV E max pancho: 60.1 cm/sec Lat Peak E' Pancho: 3.6 cm/sec Med Peak E' Pancho: 3.9 cm/sec MV A max pancho: 64.2 cm/sec E/E' lat: 16.6 E/E' med: 15.5 MV E/A: 0.94 Ao V2 max: 140.4 cm/sec LV V1 max: 108.3 cm/sec PA V2 max: 85.9 cm/sec Ao max P.9 mmHg LV V1 max P.7 mmHg TR max pancho: 206.9 cm/sec TR max P.1 mmHg ECHO/Echo Complete Interpretation Summary The study was technically difficult. Left ventricular systolic function is normal. The estimated ejection fraction is 65 %. Moderate concentric left ventricular hypertrophy. Apical false tendon noted. Trivial mitral valve insufficiency. Trivial tricuspid valve insufficiency. Mild focal aortic valve calcification. Right ventricular systolic pressure estimated to be 20 mmHg. Diastolic function is indeterminate. Comment: Compared to the previous transthoracic echocardiogram from 11-22-2020 e overall LV wall motion/systolic function appears to improved. Ordering Physician: Hesham Lao Referring Physician: Hesham Lao Performed By: Opal Taylor RDCS
== END ==
PROVIDERS: PCP Family Medicine; Referring Provider Family Medicine; Visit Provider Family Medicine
DX: I25.5 Ischemic cardiomyopathy (principal)
CPT/HCPCS: 93306

== ENCOUNTER → 2021-04-25 13:30 | Outpatient (CLI) | payer OTHER, SELFPAY ==
[2020-03-18 10:45] VITALS: BMI 35.6
--- NOTE | 2021-04-25 13:45 | RAD_ITS ---
STUDY: X-RAY CHEST REASON FOR EXAM: Male, 50 years old. DYSPNEA TECHNIQUE: PA and lateral views of the chest. COMPARISON: Comparison is made with prior study dated 01/21/2021. FINDINGS: Mild increased markings in the lingular segment of the left upper lobe suggestive of possible early infiltrate. There is no demonstrated pleural abnormality. Normal size heart. Normal mediastinum and soniya. Normal visualized pulmonary arteries. Normal visualized aortic arch and descending thoracic aorta. Normal visualized thoracic spine. Normal visualized ribs, clavicles, and shoulders. There is no demonstrated abnormality of the visualized soft tissue structures of the upper abdomen. RAD/Chest PA and Lateral IMPRESSION: Increased markings are seen in the lingular segment of the left upper lobe. Early infiltrate should be ruled out. Electronically Signed: Jin Woodall MD at 14:12 EDT , Service support ,
== END ==
PROVIDERS: PCP Family Medicine; Referring Provider Internal Medicine Pulmonary Disease; Visit Provider Internal Medicine Pulmonary Disease
DX: J44.9 Chronic obstructive pulmonary disease, unspecified (principal); J45.50 Severe persistent asthma, uncomplicated; R06.00 Dyspnea, unspecified
CPT/HCPCS: 71046

== ENCOUNTER 2021-04-28 14:36 | Inpatient (IN) | payer OTHER, SELFPAY ==
[2020-03-18 10:45] VITALS: BMI 35.6
[2021-04-28] VITALS (21 sets, daily range): BP systolic 73–166; BP diastolic 40–105; PULSE 67–105; RESP 14–29; TEMP 36.6–36.9; O2SAT 90–98; BMI 33.1; BMI 32.1
--- NOTE | 2021-04-28 15:13 | RAD_ITS ---
STUDY: X-RAY CHEST REASON FOR EXAM: Male, 50 years old. Dyspnea TECHNIQUE: Single AP portable view of the chest. COMPARISON: Comparison is made with prior study dated 04/25/2021. FINDINGS: EKG electrode are seen. Mild increased markings at the left lung base with blunting of the left costophrenic angle. This may represent an early infiltrate. Mild increased markings at the right lung base as well. There is no demonstrated pleural abnormality. Normal size heart. Normal mediastinum and soniya. Normal visualized pulmonary arteries. Normal visualized aortic arch and descending thoracic aorta. Normal visualized thoracic spine. Prior fusion in the lower cervical spine. There is no demonstrated abnormality of the visualized soft tissue structures of the upper abdomen. RAD/Chest 1 View (Portable) IMPRESSION: Increased markings at the lung bases slightly more prominent on the left side with blunting of the left costophrenic angle. Early bibasilar infiltrates should be ruled out Electronically Signed: Jin Woodall MD at 15:36 EDT , Service support ,
--- NOTE | 2021-04-28 15:13 | EKG12_ITS ---
Test Reason : SOB Blood Pressure : / mmHG Vent. Rate : 084 BPM Atrial Rate : 084 BPM P-R Int : 162 ms QRS Dur : 108 ms QT Int : 362 ms P-R-T Axes : 041 -01 007 degrees QTc Int : 427 ms Normal sinus rhythm Normal ECG Confirmed by BIRGIT EVANGELISTA, GENE ([id number]), video effects editor EVELIO CURRY ([id number]) on 05/02/2021 1:52:49 PM Referred By: GUICHO Confirmed By:GENE GENAO MD
--- NOTE | 2021-04-28 15:14 | EDS_ITS ---
HPI History of Present Illness Chief Complaint: Shortness of Breath Detail of Chief Complaint: Patient with shortness of breath for 3 weeks Informant: patient Associated Symptoms cough; Negative for white sputum, yellow sputum or green sputum Narrative Narrative: Patient presents with shortness of breath for last 3 weeks. He is got a dry cough. Patient has been seen by bus assistant Dr. Zuleta who initially started him on prednisone tapering dose for 14 days. He was seen again 3 days ago and had a chest x-ray which today showed signs of early pneumonia and he was started on Levaquin at the visit 3 days ago. Patient also started on increased prednisone. He denies any chest pain. He describes exertional dyspnea. Patient has history of coronary artery disease with 7 cardiac stents. He is on Plavix. No history of PE or DVT. He denies any fever Covid exposures. He has not had Covid and has not been vaccinated. Patient today has had nausea and is vomited multiple times. He can keep fluids down but when he tries to eat it tends to come back up today. Prior similar symptoms: No PFSH PFSH Medical History (Updated 04/28/21 @ 16:[address] Shant Oliveira, DO) Atherosclerosis of [place] coronary artery of [place] heart without angina pectoris Chronic obstructive pulmonary disease (COPD) COPD (chronic obstructive pulmonary disease) Essential hypertension History of non-ST elevation myocardial infarction (NSTEMI) (11/22/20) Hyperlipidemia Ischemic cardiomyopathy Nicotine dependence Non-ST elevation [place] (NSTEMI) Obesity (BMI 30.0-34.9) Home Medications aspirin 81 mg PO DAILY #90 tab.chew 12/12/16 [Rx Last Taken 04/28/21] albuterol sulfate 2 puff INHALATION Q4H PRN PRN 04/28/21 [History Last Taken 04/28/21 15:30] amlodipine 10 mg PO DAILY 04/28/21 [History Last Taken 04/28/21] atorvastatin 40 mg PO QHS 04/28/21 [History Last Taken 04/27/21] budesonide 0.5 mg INHALATION BID 04/28/21 [History Last Taken 04/28/21] chlorthalidone 25 mg PO DAILY 04/28/21 [History Last Taken 04/28/21] clonidine HCl 0.2 mg PO BID 04/28/21 [History Last Taken 04/28/21] clopidogrel 75 mg PO DAILY 04/28/21 [History Last Taken 04/28/21] [id number] [Trelegy Ellipta] 1 inh INHALATION DAILY 04/28/21 [History Last Taken 04/28/21] ipratropium-albuterol 3 ml INHALATION BID 04/28/21 [History Last Taken 04/28/21] isosorbide mononitrate 60 mg PO DAILY 04/28/21 [History Last Taken 04/28/21] levofloxacin 500 mg PO DAILY 04/28/21 [History Last Taken 04/28/21] lisinopril 30 mg PO BID 04/28/21 [History Last Taken 04/28/21] loratadine 10 mg PO DAILY 04/28/21 [History Last Taken Unknown] metoprolol tartrate 100 mg PO BID 04/28/21 [History Last Taken 04/28/21] prednisone 30 mg PO BID 04/28/21 [History Last Taken 04/28/21] spironolactone 25 mg PO DAILY 04/28/21 [History Last Taken 04/28/21] Allergy/AdvReac Type Severity Reaction Status Date / Time amoxicillin trihydrate Allergy Rash Verified 04/28/21 14:39 [From Augmentin] potassium clavulanate Allergy Rash Verified 04/28/21 14:39 [From Augmentin] codeine AdvReac Nausea Verified 04/28/21 14:39 Family History Sister Myocardial infarction, Onset Age: 41 Diabetes Mother COPD (chronic obstructive pulmonary disease) Asthma Rheumatoid arthritis Grandmother Diabetes Surgical History History of appendectomy History of coronary artery stent placement (11/22/20) History of hernia repair (2008) History of neck surgery History of umbilical hernia repair (1971) Social History (Updated 02/08/21 @ 14:[address] Ministerio Jacob MD) Smoking Status: Current every day smoker tobacco type: cigarettes Tobacco: How many years used: 20 Electronic Cigarette Use: not used second hand exposure: Yes alcohol intake: current alcohol intake frequency: 0-2 drinks per day Alcohol type: beer substance use type: does not use caffeine: Yes Type: carbonated beverages Number of servings: 2 and tea Number of servings: 6 ROS ROS ED Constitutional Constitutional ED: Reports systems reviewed and no addt'l complaints, except as documented; Denies body ache(s), change in weight or chills Eyes Eyes: Denies acute decrease in peripheral vision, change in vision, double vision or loss of vision ENT ENT ED: Reports none; Denies ear pain, lip swelling, loss taste/smell, neck pain, otalgia or sore throat Cardiovascular Cardiovascular: Reports none; Denies abdominal pain, chest pain with activity, leg edema, lightheadedness, palpitations, rapid heart rate or syncope Respiratory/Chest Respiratory/Chest: Reports none, cough and dyspnea; Denies change in mental status, dry cough, hemoptysis, shortness of breath at rest or shortness of breath with exertion Gastrointestinal Gastrointestinal: Reports none, nausea and vomiting; Denies abdominal pain, change in stool character, diarrhea, hematemesis, hematochezia, melena or rectal bleeding Genitourinary Genitourinary ED: Reports none; Denies abdominal discomfort, anuria, dysuria, genital pain or polyuria Musculoskeletal Musculoskeletal: Reports none; Denies arthralgias, back pain, difficulty walking, extremity pain, muscle weakness or myalgias Integumentary Reports none; Denies abscess or rash Neurologic Neurologic: Reports none; Denies abnormal gait, confusion, focal weakness, frequent falls, headache(s), loss of vision, numbness, paresthesias, radicular pain, vertigo or weakness Psychiatric Psychiatric: Reports systems reviewed and no addt'l complaints, except as documented and none; Denies behavioral changes, confusion, difficulty concentrating, hallucinations, suicidal ideation, tactile hallucinations or visual hallucinations Endocrine Endocrinology: Denies none, cold intolerance, excessive sweating, fatigue or heat intolerance Hematologic/Lymphatic Hematologic/Lymphatic: Reports none; Denies anemia, easy bleeding or easy bruising Allergic/Immunologic Allergic/Immunologic ED: Denies as per HPI, none, lip swelling, mouth swelling, throat swelling, tongue swelling or hives EXAM Physical Exam Const Vital Signs: 04/28/21 14:39 04/28/21 14:47 04/28/21 14:52 Temperature 98.4 F Temperature Source Temporal Pulse Rate 105 H 104 H Respiratory Rate 24 H 28 H Respiratory Effort Normal Non-Labored Respiratory Depth Normal Respiratory Pattern Tachypnea Blood Pressure 166/96 H 166/105 H Blood Pressure Mean 119 125 Pulse Ox 91 95 Oxygen Delivery Method Room Air Room Air Room Air Oxygen Flow Rate (L/min) 04/28/21 15:15 04/28/21 15:25 04/28/21 15:37 Temperature Temperature Source Pulse Rate Respiratory Rate Respiratory Effort Respiratory Depth Respiratory Pattern Blood Pressure Blood Pressure Mean Pulse Ox 91 96 95 Oxygen Delivery Method Room Air Nasal Cannula Nasal Cannula Oxygen Flow Rate (L/min) 2 Positive well nourished and well developed General Appearance ED: well developed and NAD HEENT Reports TM's clear and moist mucous membranes normocephalic and atraumatic; Negative for trauma or tenderness Tympanic Membrane ED: Yes TM's clear Eyes PERRL and EOMs intact bilaterally General Eye ED: Negative for pale conjunctiva or scleral icterus Neck no lymphadenopathy, supple and no JVD General: Negative for tenderness Chest Wall inspection of chest normal and palpation of chest normal Chest: Negative for tenderness Resp normal respiratory effort and clear to auscultation bilaterally Resp Narrative: Few rhonchi on exam. Patient slightly diminished bilaterally. Few faint expiratory wheezes noted. Effort and Inspection: Negative for respiratory distress or pain with movement Auscultation: rhonchi and wheezes; Negative for diminished lung sounds Cardio regular rate, regular rhythm, S1 normal heart sound, S2 normal heart sound and no murmurs Peripheral Pulses: pulses 2+ throughout GI normal to inspection, nondistended, normoactive bowel sounds, soft to palpation, non-tender, non-distended and no masses Back/Spine no CVA tenderness and no thoracic nor lumbar tenderness Extremity normal to inspection General Extremety ED: Negative for edema General Extremity: Negative for edema Neuro oriented x3, CN's II-XII intact bilaterally, no sensory deficits noted and gait normal Sensorium / Orientation: awake, alert, oriented to person, oriented to place and oriented to time Motor Exam: strength 5/5 throughout and strength abnormal Psych mental status grossly normal Skin no rashes or lesions noted and no wounds MDM MDM MDM Narrative Medical decision making narrative: Patient noted to have hyperosmolar hyperglycemic nonketotic state. He was started on insulin drip. Patient also noted to have increased markings in both lower lobes with concern for early pneumonia. Patient was started on Levaquin 750 mg IV. Case discussed with hospitalist will evaluate patient for admission. Lab Data Attestation: I reviewed the patient's lab results. Labs: Laboratory Results - last 24 hr 04/28/21 04/28/21 04/28/21 15:35 15:35 15:35 WBC 18.4 H RBC 5.46 Hgb 16.4 Hct 48.5 MCV 88.8 MCH 30.0 MCHC 33.8 RDW Std Deviation 41.3 RDW Coeff of Narcisa 12.7 Plt Count 320 MPV 11.8 Immature Gran % (Auto) 0.900 Neut % (Auto) 79.3 H Lymph % (Auto) 10.7 L [place] % (Auto) 8.6 Eos % (Auto) 0.2 Baso % (Auto) 0.3 Absolute Neuts (auto) 14.5 H Absolute Lymphs (auto) 1.97 Nucleated RBC % 0 Differential Comment SEE COMMENT Diff Path Review May foll Platelet Estimate ADEQUATE RBC Morphology N CHROM Anisocytosis RARE D-Dimer Quant (PE/DVT) 0.27 Sodium 120 L Potassium 4.9 Chloride 80 L Carbon Dioxide 27.0 Anion Gap 13 BUN 49 H Creatinine 2.25 H Estim Creat Clear Calc 38.42 Est GFR (MDRD) Af Amer 40 L Est GFR (MDRD) Non-Af 33 L BUN/Creatinine Ratio 21.8 H Glucose 1216 H* Calcium 10.5 H Total Bilirubin 0.60 AST 8 L ALT 40 Alkaline Phosphatase 144 H Troponin I < 0.015 B-Natriuretic Peptide Total Protein 7.8 Albumin 3.6 Globulin 4.2 Albumin/Globulin Ratio 0.9 Lipase 275 04/28/21 15:35 WBC RBC Hgb Hct MCV MCH MCHC RDW Std Deviation RDW Coeff of Narcisa Plt Count MPV Immature Gran % (Auto) Neut % (Auto) Lymph % (Auto) [place] % (Auto) Eos % (Auto) Baso % (Auto) Absolute Neuts (auto) Absolute Lymphs (auto) Nucleated RBC % Differential Comment Diff Path Review Platelet Estimate RBC Morphology Anisocytosis D-Dimer Quant (PE/DVT) Sodium Potassium Chloride Carbon Dioxide Anion Gap BUN Creatinine Estim Creat Clear Calc Est GFR (MDRD) Af Amer Est GFR (MDRD) Non-Af BUN/Creatinine Ratio Glucose Calcium Total Bilirubin AST ALT Alkaline Phosphatase Troponin I B-Natriuretic Peptide 15.5 Total Protein Albumin Globulin Albumin/Globulin Ratio Lipase Radiography Diagnostic Testing: Radiology Impression Chest X-Ray 06/10/21 15:13 IMPRESSION: Increased markings at the lung bases slightly more prominent on the left side with blunting of the left costophrenic angle. Early bibasilar infiltrates should be ruled out Electronically Signed: Jin Woodall MD at 15:36 EDT , Service support , Critical Care Time Critical Care Time: Yes Critical care time (excluding procedures): Including time spent:, Discussing w/Patient &/or Family/Inventory Manager, Discussing w/Consultants, Arranging Admission or Transfer, Performing Direct Patient Care at Bedside and - (35 minutes) Discharge Plan Dx/Rx/DC Orders Clinical Impression: Hyperglycemic hyperosmolar nonketotic coma, Pneumonia Disposition Disposition: Acute Care [facility]
[2021-04-28] MEDS: 0.9% Normal Saline 1,000 ML 1000 ML IV (15:38)
[2021-04-28 15:46] LABS: Absolute Lymphocyte Count 1.97 X10^3/uL (0.83-4.51); Absolute Neutrophil Count 14.5 X10^3/uL (2.0-7.7); Basophil# 0.05 X10^3/uL; Basophil% 0.3 % (0-1); Eosinophil# 0.04 X10^3/uL; Eosinophils% 0.2 % (0-5); Hematocrit 48.5 % (40-54); Hemoglobin 16.4 g/dL (13.0-16.5); Lymphocyte # 1.97 X10^3/ul (0.83-4.51); Lymphocyte % 10.7 % (19-41); Mean Corp Hgb Conc 33.8 g/dL (32-36); Mean Corpuscular Volume 88.8 fL (80-94); Mean Platelet Vol. 11.8 fl (6.2-12.0); Monocyte# 1.58 X10^3/uL; Monocyte% 8.6 % (0-10); NRBC Flagged by Analyzer 0 % (0-5); Neutrophil # 14.54 X10^3/uL (2.7-7.7); Neutrophil % 79.3 % (47-70); POSITIVE DIFFERENTIAL YES; Platelet Count 320 K/mm3 (150-450); RBC Distribution Width CV 12.7 % (11.6-14.6); RBC Distribution Width SD 41.3 fl (35.1-43.9); Red Blood Count 5.46 M/mm3 (4.6-6.2); White Blood Count 18.4 K/mm3 (4.4-11.0)
[2021-04-28 15:49] LABS: Differential Indicated SCAN CRITERIA MET
[2021-04-28 16:10] LABS: D-Dimer Quantitative (DVT/PE) 0.27 FEU/ug/m (0.27-0.49)
[2021-04-28 16:14] LABS: ALB/GLOB Ratio 0.9 RATIO (0.9-2.4); AST(SGOT) 8 U/L (15-37); Alanine Aminotransfer ALT/SGPT 40 U/L (16-61); Albumin, Serum 3.6 g/dL (3.2-5.0); Alkaline Phosphatase 144 U/L (45-117); Anion Gap 13 (5-15); BUN 49 mg/dL (7-18); BUN/Creat Ratio 21.8 RATIO (10-20); Calcium,Total 10.5 mg/dL (8.5-10.1); Chloride 80 mmol/L (98-107); Creatinine, Serum 2.25 mg/dL (0.70-1.30); EST Glomerular Filtration Rate 33 mL/min (>60); Est Glom Filt Rate - Afr Amer 40 mL/min (>60); Estimated Creatinine Clearance 38.42 ml/min; Globulin 4.2 g/dL (2.2-4.2); Glucose 1216 mg/dL (74-106); Lipase 275 U/L (73-393); Potassium 4.9 mmol/L (3.5-5.1); Protein, Total 7.8 g/dL (6.4-8.2); Sodium Level 120 mmol/L (136-145)
[2021-04-28 16:22] LABS: Platelet Estimate ADEQUATE (ADEQ)
[2021-04-28 16:23] LABS: Anisocytosis RARE; Red Cell Morphology N CHROM NORMAL (NORM C&C)
[2021-04-28 16:42] LABS: BNP,B-Type NATRIURETIC PEPTIDE 15.5 pg/mL (0-100)
--- NOTE | 2021-04-28 16:57 | NURSING ---
ICU 2
--- NOTE | 2021-04-28 17:52 | HP.PCM.HOS_ITS ---
HPI - General General Date of Admission: 04/28/21 Date of Service: 04/28/21 Chief Complaint: hyperglycemia HPI Narrative LATONYA ELDER, is a 50 M who presents with been having polyuria and polydipsia. 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 Patient presents to the emergency room and his blood sugar was 1216. Patient received IV fluids and was started on insulin drip to the emergency room. Patient was not found to be in diabetic ketoacidosis. Patient has had a known history of diabetes but current patient's spouse, when he sees his primary care provider, the primary care provider gets sidetracked with the patient's blood pressure when he is at the office. Patient states that his mouth is sore and food and water taste like excrement. PFSH Medical History Asthma Atherosclerosis of [place] coronary artery of [place] heart without angina pectoris Chronic obstructive pulmonary disease (COPD) COPD (chronic obstructive pulmonary disease) Essential hypertension History of non-ST elevation myocardial infarction (NSTEMI) (11/22/20) Hyperlipidemia Hypertension Ischemic cardiomyopathy Myocardial infarct Nicotine dependence Non-ST elevation [place] (NSTEMI) Obesity (BMI 30.0-34.9) Smoker Home Medications aspirin 81 mg PO DAILY #90 tab.chew 12/12/16 [Rx Last Taken 04/28/21] albuterol sulfate 2 puff INHALATION Q4H PRN PRN 04/28/21 [History Last Taken 15:30] amlodipine 10 mg PO DAILY 04/28/21 [History Last Taken 04/28/21] atorvastatin 40 mg PO QHS 04/28/21 [History Last Taken 04/27/21] budesonide 0.5 mg INHALATION BID 04/28/21 [History Last Taken 04/28/21] chlorthalidone 25 mg PO DAILY 04/28/21 [History Last Taken 04/28/21] clonidine HCl 0.2 mg PO BID 04/28/21 [History Last Taken 04/28/21] clopidogrel 75 mg PO DAILY 04/28/21 [History Last Taken 04/28/21] [id number] [Trelegy Ellipta] 1 inh INHALATION DAILY 04/28/21 [History Last Taken 04/28/21] ipratropium-albuterol 3 ml INHALATION BID 04/28/21 [History Last Taken 04/28/21] isosorbide mononitrate 60 mg PO DAILY 04/28/21 [History Last Taken 04/28/21] levofloxacin 500 mg PO DAILY 04/28/21 [History Last Taken 04/28/21] lisinopril 30 mg PO BID 04/28/21 [History Last Taken 04/28/21] loratadine 10 mg PO DAILY 04/28/21 [History Last Taken Unknown] metoprolol tartrate 100 mg PO BID 04/28/21 [History Last Taken 04/28/21] prednisone 30 mg PO BID 04/28/21 [History Last Taken 04/28/21] spironolactone 25 mg PO DAILY 04/28/21 [History Last Taken 04/28/21] Allergy/AdvReac Type Severity Reaction Status Date / Time amoxicillin trihydrate Allergy Rash Verified 04/28/21 14:39 [From Augmentin] potassium clavulanate Allergy Rash Verified 04/28/21 14:39 [From Augmentin] codeine AdvReac Nausea Verified 04/28/21 14:39 Family History Sister Myocardial infarction, Onset Age: 41 Diabetes Mother COPD (chronic obstructive pulmonary disease) Asthma Rheumatoid arthritis Grandmother Diabetes Surgical History History of appendectomy History of coronary artery stent placement (11/22/20) History of hernia repair (2008) History of neck surgery History of umbilical hernia repair (1971) Social History Smoking Status: Current every day smoker tobacco type: cigarettes Tobacco: How many years used: 20 Electronic Cigarette Use: not used second hand exposure: Yes alcohol intake: current alcohol intake frequency: 0-2 drinks per day Alcohol type: beer substance use type: does not use caffeine: Yes Type: carbonated beverages Number of servings: 2 and tea Number of servings: 6 ROS ROS Narrative All review of systems were negative except as mentioned above in the history of present illness and the other review of systems. Vital Signs Vital Signs Vital Signs: 04/28/21 14:39 04/28/21 14:47 04/28/21 14:52 Temperature 36.9 C Temperature Source Temporal Pulse Rate 105 H 104 H Respiratory Rate 24 H 28 H Respiratory Effort Normal Non-Labored Respiratory Depth Normal Respiratory Pattern Tachypnea Blood Pressure 166/96 H 166/105 H Blood Pressure Mean 119 125 Pulse Ox 91 95 Oxygen Delivery Method Room Air Room Air Room Air Oxygen Flow Rate (L/min) 04/28/21 15:15 04/28/21 15:25 04/28/21 15:37 Temperature Temperature Source Pulse Rate Respiratory Rate Respiratory Effort Respiratory Depth Respiratory Pattern Blood Pressure Blood Pressure Mean Pulse Ox 91 96 95 Oxygen Delivery Method Room Air Nasal Cannula Nasal Cannula Oxygen Flow Rate (L/min) 2 Weight Weight: 98.883 kg Body Mass Index (BMI) 33.1 Physical Exam Const alert and oriented x3 HEENT HEENT Narrative: Thrush on tongue and as well as posterior palate. Mouth is dry. Resp normal respiratory effort and clear to auscultation bilaterally Cardio regular rate, regular rhythm, S1 normal heart sound and S2 normal heart sound GI normal to inspection, nondistended, normoactive bowel sounds, non-tender and non-distended Extremity normal to inspection and full ROM Skin no rashes or lesions noted Neuro moves all extremities Sensorium / Orientation: awake and alert Speech: speech normal Psych Psych Narrative: Flat affect Results Lab / Micro Data Result Diagrams: 04/28/21 15:35 04/28/21 15:35 Labs: Laboratory Results - last 24 hr 04/28/21 04/28/21 04/28/21 15:35 15:35 15:35 WBC 18.4 H RBC 5.46 Hgb 16.4 Hct 48.5 MCV 88.8 MCH 30.0 MCHC 33.8 RDW Std Deviation 41.3 RDW Coeff of Narcisa 12.7 Plt Count 320 MPV 11.8 Immature Gran % (Auto) 0.900 Neut % (Auto) 79.3 H Lymph % (Auto) 10.7 L [place] % (Auto) 8.6 Eos % (Auto) 0.2 Baso % (Auto) 0.3 Absolute Neuts (auto) 14.5 H Absolute Lymphs (auto) 1.97 Nucleated RBC % 0 Differential Comment SEE COMMENT Diff Path Review May foll Platelet Estimate ADEQUATE RBC Morphology N CHROM Anisocytosis RARE D-Dimer Quant (PE/DVT) 0.27 Sodium 120 L Potassium 4.9 Chloride 80 L Carbon Dioxide 27.0 Anion Gap 13 BUN 49 H Creatinine 2.25 H Estim Creat Clear Calc 38.42 Est GFR (MDRD) Af Amer 40 L Est GFR (MDRD) Non-Af 33 L BUN/Creatinine Ratio 21.8 H Glucose 1216 H* Calcium 10.5 H Total Bilirubin 0.60 AST 8 L ALT 40 Alkaline Phosphatase 144 H Troponin I < 0.015 B-Natriuretic Peptide Total Protein 7.8 Albumin 3.6 Globulin 4.2 Albumin/Globulin Ratio 0.9 Lipase 275 04/28/21 15:35 WBC RBC Hgb Hct MCV MCH MCHC RDW Std Deviation RDW Coeff of Narcisa Plt Count MPV Immature Gran % (Auto) Neut % (Auto) Lymph % (Auto) [place] % (Auto) Eos % (Auto) Baso % (Auto) Absolute Neuts (auto) Absolute Lymphs (auto) Nucleated RBC % Differential Comment Diff Path Review Platelet Estimate RBC Morphology Anisocytosis D-Dimer Quant (PE/DVT) Sodium Potassium Chloride Carbon Dioxide Anion Gap BUN Creatinine Estim Creat Clear Calc Est GFR (MDRD) Af Amer Est GFR (MDRD) Non-Af BUN/Creatinine Ratio Glucose Calcium Total Bilirubin AST ALT Alkaline Phosphatase Troponin I B-Natriuretic Peptide 15.5 Total Protein Albumin Globulin Albumin/Globulin Ratio Lipase Micro: Microbiology 04/28/21 15:25 SARS-CoV-2 Antigen (Rapid) - Final Mucosa - Nose Radiology Impression Chest X-Ray 04/28/21 15:13 IMPRESSION: Increased markings at the lung bases slightly more prominent on the left side with blunting of the left costophrenic angle. Early bibasilar infiltrates should be ruled out Electronically Signed: Jin Woodall MD at 15:36 EDT , Service support , Assessment & Plan Assessment/Plan (1) Hyperglycemic hyperosmolar nonketotic coma: (2) ELSA (acute kidney injury): (3) Oral candidiasis: PLAN: 1. Hyperglycemic hyperosmolar state * Due to poorly controlled diabetes exacerbated by the patient's steroids. * Agree with starting the insulin drip. Since patient is non-DKA will allow him to eat if he feels up to it * IV fluids * I feel the patient's hyponatremia is attributable to the profound hyperglyce justo * Did discuss with the patient and his that he would be discharged with insulin. Plan would be to transition him over to basal insulin as well as prandial * Patient states that he drinks juice as well is sugary beverages. Told him that those will need to stop and will have dietary discussed with him further about further modifications he will need to do to his diet. He expressed dismay with this. I told him were just trying to help him out to help prevent him from having long-term complications associated with diabetes 2. Acute kidney injury * Likely due to prerenal azotemia due to diuresis with his hyperglycemia * IV fluids * Hold lisinopril and spironolactone 3. Leukocytosis * This may be related to steroids. * I reviewed the patient's x-ray him not impressive for any significant pneumonia and will discontinue his levofloxacin 4. Asthma and COPD * Patient has been restarted on prednisone taper after completing 1 over 2 to 3 weeks * Not sure if some of his respiratory symptoms are related with his metabolic derangements * My plan would be to slowly taper the patient off of steroids. Feel discontinuing now abruptly could lead to adrenal issues since he was recently on a very prolonged taper * Patient typically is not on oxygen at home. * He currently has no wheezing to suggest an exacerbation of asthma or COPD at this time 5. CAD * Stable * Continue with isosorbide, metoprolol tartrate, aspirin, atorvastatin and clopidogrel. 6. VTE prophylaxis with subcu heparin Charges/Coding Visit Charges Inpatient E&M: 22530 Init Hosp L3
--- NOTE | 2021-04-28 18:04 | ED.RN ---
PT VERBALLY ABUSIVE TO STAFF, THREATENED TO PEE ON THIS RN IF REQUESTS WEREN'T IMMEDIATELY GRANTED. PT REFUSED SECOND IV AFTER SEVERAL ATTEMPTS MADE BY OTHER STAFF. ATB NOT STARTED DUE TO PT REFUSAL.
[2021-04-28 18:20] LABS: Bedside Glucose > 500 mg/dL (70-110)
[2021-04-28] MEDS: Morphine 4 MG/ML Syringe IV (18:25)
[2021-04-28 19:05] LABS: Bedside Glucose > 500 mg/dL (70-110)
[2021-04-28] MEDS: 0.9% Normal Saline 1,000 ML 200 ML IV (19:22)
--- NOTE | 2021-04-28 19:23 | RAD_ITS ---
STUDY: X-RAY - ABDOMEN/PELVIS REASON FOR EXAM: Male, 50 years old. abdominal pain TECHNIQUE: 3 AP supine views of the abdomen and pelvis. COMPARISON: None. FINDINGS: Normal visualized lung bases. Prior right pelvic mesh repair for hernia There is an unremarkable bowel gas pattern. There is no demonstrated free abdominal air. The visualized liver, spleen and kidneys are grossly normal in size and morphology. Normal soft tissue structures. Normal visualized osseous structures. RAD/Abdomen Single View (Portable) IMPRESSION: Normal x-ray examination of the abdomen and pelvis. Electronically Signed: Clifford Franklin DO at 23:50 EDT Tel , Service support ,
[2021-04-28 19:38] LABS: Hemoglobin A1c 12.1 % (3.8-5.6)
[2021-04-28 19:42] LABS: Anion Gap 13 (5-15); BUN 48 mg/dL (7-18); BUN/Creat Ratio 21.1 RATIO (10-20); Calcium,Total 10.1 mg/dL (8.5-10.1); Chloride 87 mmol/L (98-107); Creatinine, Serum 2.28 mg/dL (0.70-1.30); EST Glomerular Filtration Rate 33 mL/min (>60); Est Glom Filt Rate - Afr Amer 39 mL/min (>60); Estimated Creatinine Clearance 37.92 ml/min; Glucose 805 mg/dL (74-106); Potassium 4.6 mmol/L (3.5-5.1); Sodium Level 123 mmol/L (136-145)
[2021-04-28] MEDS: Ipratropium/Albuterol Sulfate 3 ML AMPUL.NEB INHALATION (19:54)
[2021-04-28 20:06] LABS: Bedside Glucose > 500 mg/dL (70-110)
--- NOTE | 2021-04-28 20:20 | PCM.PN.BLA ---
Progress Note Patient with hypotension. Discontinue all home blood pressure medication at this time. Normal saline 1000 mL bolus x1 ordered.
[2021-04-28] MEDS: 0.9% Normal Saline 1,000 ML 999 ML IV (20:35)
[2021-04-28 20:53] LABS: Glucose 696 mg/dL (74-106)
[2021-04-28 21:46] LABS: Bedside Glucose > 500 mg/dL (70-110)
[2021-04-28] MEDS: NYSTATIN 500,000 UNIT/5 ML UDC 500000 UNIT PO (21:50)
[2021-04-28] MEDS: 0.9% Saline Lock 10 ML Syringe IV (21:50)
[2021-04-28] MEDS: Atorvastatin Calcium 40 MG Tablet PO (21:50)
[2021-04-28 22:22] LABS: Anion Gap 10 (5-15); BUN 48 mg/dL (7-18); BUN/Creat Ratio 21.5 RATIO (10-20); Calcium,Total 9.5 mg/dL (8.5-10.1); Chloride 92 mmol/L (98-107); Creatinine, Serum 2.23 mg/dL (0.70-1.30); EST Glomerular Filtration Rate 33 mL/min (>60); Est Glom Filt Rate - Afr Amer 40 mL/min (>60); Estimated Creatinine Clearance 38.77 ml/min; Glucose 617 mg/dL (74-106); Potassium 4.4 mmol/L (3.5-5.1); Sodium Level 129 mmol/L (136-145)
[2021-04-28 22:51] LABS: Bedside Glucose > 500 mg/dL (70-110)
[2021-04-28 23:27] LABS: Glucose 614 mg/dL (74-106)
[2021-04-29] VITALS (31 sets, daily range): BP systolic 89–152; BP diastolic 46–102; PULSE 69–108; RESP 14–90; TEMP 36.1–36.9; O2SAT 18–100; BMI 32.8
[2021-04-29 00:21] LABS: Bedside Glucose 492 mg/dL (70-110)
[2021-04-29] MEDS: 0.9% Normal Saline 1,000 ML 200 ML IV (00:29)
[2021-04-29 01:26] LABS: Bedside Glucose 458 mg/dL (70-110)
[2021-04-29] MEDS: Ipratropium/Albuterol Sulfate 3 ML AMPUL.NEB INHALATION ×4 (01:29→19:07)
[2021-04-29 02:21] LABS: Bedside Glucose 457 mg/dL (70-110)
[2021-04-29 03:17] LABS: Absolute Neutrophil Count 11.5 X10^3/uL (2.0-7.7); Basophil# 0.05 X10^3/uL; Basophil% 0.3 % (0-1); Eosinophil# 0.11 X10^3/uL; Eosinophils% 0.7 % (0-5); Hematocrit 40.5 % (40-54); Hemoglobin 13.9 g/dL (13.0-16.5); Mean Corp Hgb Conc 34.3 g/dL (32-36); Mean Corpuscular Hgb 29.8 pg (27.0-32.0); Mean Corpuscular Volume 86.7 fL (80-94); Mean Platelet Vol. 11.2 fl (6.2-12.0); Monocyte# 1.41 X10^3/uL; Monocyte% 8.8 % (0-10); NRBC Flagged by Analyzer 0 % (0-5); Neutrophil # 11.52 X10^3/uL (2.7-7.7); Neutrophil % 71.5 % (47-70); Platelet Count 255 K/mm3 (150-450); RBC Distribution Width CV 12.4 % (11.6-14.6); RBC Distribution Width SD 39.6 fl (35.1-43.9); Red Blood Count 4.67 M/mm3 (4.6-6.2); White Blood Count 16.1 K/mm3 (4.4-11.0)
[2021-04-29 03:46] LABS: Anion Gap 6 (5-15); BUN 39 mg/dL (7-18); BUN/Creat Ratio 26.2 RATIO (10-20); Chloride 95 mmol/L (98-107); Creatinine, Serum 1.49 mg/dL (0.70-1.30); EST Glomerular Filtration Rate 53 mL/min (>60); Est Glom Filt Rate - Afr Amer 64 mL/min (>60); Estimated Creatinine Clearance 58.02 ml/min; Glucose 420 mg/dL (74-106); Potassium 3.6 mmol/L (3.5-5.1); Sodium Level 134 mmol/L (136-145)
[2021-04-29 04:26] LABS: Bedside Glucose 404 mg/dL (70-110)
[2021-04-29 05:21] LABS: Bedside Glucose 311 mg/dL (70-110)
[2021-04-29] MEDS: Phenol/Sodium Phenolate 180ML 3 SPRAY MUCOUS MEM (05:31)
[2021-04-29 06:25] LABS: Bedside Glucose 330 mg/dL (70-110)
--- NOTE | 2021-04-29 08:38 | CT_ITS ---
STUDY: CT CHEST WITHOUT CONTRAST REASON FOR EXAM: Male, 50 years old. Shortness of breath, cough. RADIATION DOSAGE (If Supplied By Facility): CTDIvol = ( 14.32 ) mGy, DLP = ( 490.14 ) mGycm TECHNIQUE: Transaxial imaging was performed without the administration of intravenous contrast material. Multiplanar coronal and sagittal images were reformatted. Individualized dose optimization techniques were used for this CT. COMPARISON: Comparison is made with prior chest radiograph dated 04/28/2021. FINDINGS: Mild degree of increased markings at the lung bases more prominent at the left lung base with focal area of confluent suggestive of bibasilar atelectasis and/or infiltrate. There is no demonstrated pleural abnormality. There are calcifications of the coronary arteries. There are multiple small lymph nodes within the mediastinum, which are normal in size and morphology most compatible with reactive lymph hyperplasia. Normal hilar regions. Normal unenhanced pulmonary arteries. Normal aorta arch and descending thoracic aorta. There are degenerative changes of the thoracic spine. Fatty infiltration of the liver. CT/Chest without Contrast IMPRESSION: Increased markings at the lung bases with focal area of confluence at the left lung base suggestive of either atelectasis and/or infiltrates. Follow-up is recommended. Electronically Signed: Jin Woodall MD at 10:16 EDT , Service support ,
--- NOTE | 2021-04-29 08:43 | PCM.PN.HOSP ---
Subjective Subjective Chief complaint: Follow-up after admission for hypoglycemic hyperosmolar nonketotic state, newly diagnosed type 2 diabetes mellitus, acute kidney injury, oral candidiasis with mouth ulcerations and also found to have left lower lobe community-acquired pneumonia. Patient seen and examined. No acute events overnight. He complained of mouth pain and sores, not able to eat or drink. He still complaining of cough with mild shortness of breath. Denied nausea or vomiting. Denied chest pain. Currently, he is on IV insulin drip. Earlier this morning, his blood pressure was borderline, received IV fluid bolus and blood pressure improved. Other vital signs are stable. Objective Data Objective Data Vital Signs: Vital Signs Temp Pulse Resp BP Pulse Ox 98.2 F 87 14 135/75 H 97 04/29/21 00:00 04/29/21 06:59 04/29/21 06:59 04/29/21 06:59 04/29/21 06:59 Oxygen Flow Rate (L/min) 2 Oxygen Delivery Method Nasal Cannula Weight: 216 lb 11.43 oz Body Mass Index (BMI) 32.1 Intake & Output: Intake and Output for Last 24 Hours 04/27/21 04/28/21 04/29/21 23:59 23:59 23:59 Intake Total 2592.62 / 2592.62 2408.22 / 2408.22 Balance 2592.62 / 2592.62 2408.22 / 2408.22 Lab / Micro Data Result Diagrams: 04/29/21 03:05 04/29/21 08:10 Labs: Laboratory Results - last 24 hr 04/28/21 04/28/21 04/28/21 15:35 15:35 15:35 WBC 18.4 H RBC 5.46 Hgb 16.4 Hct 48.5 MCV 88.8 MCH 30.0 MCHC 33.8 RDW Std Deviation 41.3 RDW Coeff of Narcisa 12.7 Plt Count 320 MPV 11.8 Immature Gran % (Auto) 0.900 Neut % (Auto) 79.3 H Lymph % (Auto) 10.7 L [place] % (Auto) 8.6 Eos % (Auto) 0.2 Baso % (Auto) 0.3 Absolute Neuts (auto) 14.5 H Absolute Lymphs (auto) 1.97 Nucleated RBC % 0 Differential Comment SEE COMMENT Diff Path Review May foll Platelet Estimate ADEQUATE RBC Morphology N CHROM Anisocytosis RARE D-Dimer Quant (PE/DVT) 0.27 Sodium 120 L Potassium 4.9 Chloride 80 L Carbon Dioxide 27.0 Anion Gap 13 BUN 49 H Creatinine 2.25 H Estim Creat Clear Calc 38.42 Est GFR (MDRD) Af Amer 40 L Est GFR (MDRD) Non-Af 33 L BUN/Creatinine Ratio 21.8 H Glucose 1216 H* Hemoglobin A1c Calcium 10.5 H Total Bilirubin 0.60 AST 8 L ALT 40 Alkaline Phosphatase 144 H Troponin I < 0.015 B-Natriuretic Peptide Total Protein 7.8 Albumin 3.6 Globulin 4.2 Albumin/Globulin Ratio 0.9 Lipase 275 POC Glucose 04/28/21 04/28/21 04/28/21 15:35 18:16 18:59 WBC RBC Hgb Hct MCV MCH MCHC RDW Std Deviation RDW Coeff of Narcisa Plt Count MPV Immature Gran % (Auto) Neut % (Auto) Lymph % (Auto) [place] % (Auto) Eos % (Auto) Baso % (Auto) Absolute Neuts (auto) Absolute Lymphs (auto) Nucleated RBC % Differential Comment Diff Path Review Platelet Estimate RBC Morphology Anisocytosis D-Dimer Quant (PE/DVT) Sodium Potassium Chloride Carbon Dioxide Anion Gap BUN Creatinine Estim Creat Clear Calc Est GFR (MDRD) Af Amer Est GFR (MDRD) Non-Af BUN/Creatinine Ratio Glucose Hemoglobin A1c Calcium Total Bilirubin AST ALT Alkaline Phosphatase Troponin I B-Natriuretic Peptide 15.5 Total Protein Albumin Globulin Albumin/Globulin Ratio Lipase POC Glucose > 500 H* > 500 H* 04/28/21 04/28/21 04/28/21 19:10 19:10 19:10 WBC RBC Hgb Hct MCV MCH MCHC RDW Std Deviation RDW Coeff of Narcisa Plt Count MPV Immature Gran % (Auto) Neut % (Auto) Lymph % (Auto) [place] % (Auto) Eos % (Auto) Baso % (Auto) Absolute Neuts (auto) Absolute Lymphs (auto) Nucleated RBC % Differential Comment Diff Path Review Platelet Estimate RBC Morphology Anisocytosis D-Dimer Quant (PE/DVT) Sodium 123 L Potassium 4.6 Chloride 87 L Carbon Dioxide 23.0 Anion Gap 13 BUN 48 H Creatinine 2.28 H Estim Creat Clear Calc 37.92 Est GFR (MDRD) Af Amer 39 L Est GFR (MDRD) Non-Af 33 L BUN/Creatinine Ratio 21.1 H Glucose 805 H* Cancelled Hemoglobin A1c 12.1 H Calcium 10.1 Total Bilirubin AST ALT Alkaline Phosphatase Troponin I B-Natriuretic Peptide Total Protein Albumin Globulin Albumin/Globulin Ratio Lipase POC Glucose 04/28/21 04/28/21 04/28/21 20:03 20:05 21:40 WBC RBC Hgb Hct MCV MCH MCHC RDW Std Deviation RDW Coeff of Narcisa Plt Count MPV Immature Gran % (Auto) Neut % (Auto) Lymph % (Auto) [place] % (Auto) Eos % (Auto) Baso % (Auto) Absolute Neuts (auto) Absolute Lymphs (auto) Nucleated RBC % Differential Comment Diff Path Review Platelet Estimate RBC Morphology Anisocytosis D-Dimer Quant (PE/DVT) Sodium 129 L Potassium 4.4 Chloride 92 L Carbon Dioxide 27.0 Anion Gap 10 BUN 48 H Creatinine 2.23 H Estim Creat Clear Calc 38.77 Est GFR (MDRD) Af Amer 40 L Est GFR (MDRD) Non-Af 33 L BUN/Creatinine Ratio 21.5 H Glucose 696 H* 617 H* Hemoglobin A1c Calcium 9.5 Total Bilirubin AST ALT Alkaline Phosphatase Troponin I B-Natriuretic Peptide Total Protein Albumin Globulin Albumin/Globulin Ratio Lipase POC Glucose > 500 H* 04/28/21 04/28/21 04/28/21 21:40 21:40 22:47 WBC RBC Hgb Hct MCV MCH MCHC RDW Std Deviation RDW Coeff of Narcisa Plt Count MPV Immature Gran % (Auto) Neut % (Auto) Lymph % (Auto) [place] % (Auto) Eos % (Auto) Baso % (Auto) Absolute Neuts (auto) Absolute Lymphs (auto) Nucleated RBC % Differential Comment Diff Path Review Platelet Estimate RBC Morphology Anisocytosis D-Dimer Quant (PE/DVT) Sodium Potassium Chloride Carbon Dioxide Anion Gap BUN Creatinine Estim Creat Clear Calc Est GFR (MDRD) Af Amer Est GFR (MDRD) Non-Af BUN/Creatinine Ratio Glucose Cancelled Hemoglobin A1c Calcium Total Bilirubin AST ALT Alkaline Phosphatase Troponin I B-Natriuretic Peptide Total Protein Albumin Globulin Albumin/Globulin Ratio Lipase POC Glucose > 500 H* > 500 H* 04/28/21 04/29/21 04/29/21 22:50 00:14 01:20 WBC RBC Hgb Hct MCV MCH MCHC RDW Std Deviation RDW Coeff of Narcisa Plt Count MPV Immature Gran % (Auto) Neut % (Auto) Lymph % (Auto) [place] % (Auto) Eos % (Auto) Baso % (Auto) Absolute Neuts (auto) Absolute Lymphs (auto) Nucleated RBC % Differential Comment Diff Path Review Platelet Estimate RBC Morphology Anisocytosis D-Dimer Quant (PE/DVT) Sodium Potassium Chloride Carbon Dioxide Anion Gap BUN Creatinine Estim Creat Clear Calc Est GFR (MDRD) Af Amer Est GFR (MDRD) Non-Af BUN/Creatinine Ratio Glucose 614 H* Hemoglobin A1c Calcium Total Bilirubin AST ALT Alkaline Phosphatase Troponin I B-Natriuretic Peptide Total Protein Albumin Globulin Albumin/Globulin Ratio Lipase POC Glucose 492 H* 458 H* 04/29/21 04/29/21 04/29/21 02:16 03:05 03:05 WBC 16.1 H RBC 4.67 Hgb 13.9 Hct 40.5 MCV 86.7 MCH 29.8 MCHC 34.3 RDW Std Deviation 39.6 RDW Coeff of Narcisa 12.4 Plt Count 255 MPV 11.2 Immature Gran % (Auto) 0.700 Neut % (Auto) 71.5 H Lymph % (Auto) 18.0 L [place] % (Auto) 8.8 Eos % (Auto) 0.7 Baso % (Auto) 0.3 Absolute Neuts (auto) 11.5 H Absolute Lymphs (auto) 2.90 Nucleated RBC % 0 Differential Comment Diff Path Review Platelet Estimate RBC Morphology Anisocytosis D-Dimer Quant (PE/DVT) Sodium 134 L Potassium 3.6 Chloride 95 L Carbon Dioxide 33.0 H Anion Gap 6 BUN 39 H Creatinine 1.49 H Estim Creat Clear Calc 58.02 Est GFR (MDRD) Af Amer 64 Est GFR (MDRD) Non-Af 53 L BUN/Creatinine Ratio 26.2 H Glucose 420 H Hemoglobin A1c Calcium 9.0 Total Bilirubin AST ALT Alkaline Phosphatase Troponin I B-Natriuretic Peptide Total Protein Albumin Globulin Albumin/Globulin Ratio Lipase POC Glucose 457 H* 04/29/21 04/29/21 04/29/21 04:18 05:17 06:15 WBC RBC Hgb Hct MCV MCH MCHC RDW Std Deviation RDW Coeff of Narcisa Plt Count MPV Immature Gran % (Auto) Neut % (Auto) Lymph % (Auto) [place] % (Auto) Eos % (Auto) Baso % (Auto) Absolute Neuts (auto) Absolute Lymphs (auto) Nucleated RBC % Differential Comment Diff Path Review Platelet Estimate RBC Morphology Anisocytosis D-Dimer Quant (PE/DVT) Sodium Potassium Chloride Carbon Dioxide Anion Gap BUN Creatinine Estim Creat Clear Calc Est GFR (MDRD) Af Amer Est GFR (MDRD) Non-Af BUN/Creatinine Ratio Glucose Hemoglobin A1c Calcium Total Bilirubin AST ALT Alkaline Phosphatase Troponin I B-Natriuretic Peptide Total Protein Albumin Globulin Albumin/Globulin Ratio Lipase POC Glucose 404 H 311 H 330 H 04/29/21 06:58 WBC RBC Hgb Hct MCV MCH MCHC RDW Std Deviation RDW Coeff of Narcisa Plt Count MPV Immature Gran % (Auto) Neut % (Auto) Lymph % (Auto) [place] % (Auto) Eos % (Auto) Baso % (Auto) Absolute Neuts (auto) Absolute Lymphs (auto) Nucleated RBC % Differential Comment Diff Path Review Platelet Estimate RBC Morphology Anisocytosis D-Dimer Quant (PE/DVT) Sodium Cancelled Potassium Cancelled Chloride Cancelled Carbon Dioxide Cancelled Anion Gap Cancelled BUN Cancelled Creatinine Cancelled Estim Creat Clear Calc Cancelled Est GFR (MDRD) Af Amer Cancelled Est GFR (MDRD) Non-Af Cancelled BUN/Creatinine Ratio Cancelled Glucose Cancelled Hemoglobin A1c Calcium Cancelled Total Bilirubin AST ALT Alkaline Phosphatase Troponin I B-Natriuretic Peptide Total Protein Albumin Globulin Albumin/Globulin Ratio Lipase POC Glucose Micro: Microbiology 04/28/21 15:25 Mucosa - Nose SARS-CoV-2 Antigen (Rapid) - Final Radiography Diagnostic Testing: Radiology Impression Chest X-Ray 04/28/21 15:13 IMPRESSION: Increased markings at the lung bases slightly more prominent on the left side with blunting of the left costophrenic angle. Early bibasilar infiltrates should be ruled out Electronically Signed: Jin Woodall MD at 15:36 EDT , Service support , KUB X-Ray 04/28/21 19:23 IMPRESSION: Normal x-ray examination of the abdomen and pelvis. Electronically Signed: Clifford Franklin DO at 23:50 EDT Tel , Service support , Physical Exam Const alert, oriented x3, no limitations and well nourished Constitutional Narrative: Minimally short of breath. General Appearance: cooperative Exam Limitations: no limitations HEENT normocephalic, head/scalp atraumatic, external ears normal and external nose normal Mouth: dry mucous membranes Eyes PERRL, EOMs intact bilaterally, conjunctivae normal and no scleral icterus General Eye: normal appearance of both eyes Neck no lymphadenopathy, supple, no meningeal signs, no JVD and no carotid bruits Lymph Lymphatic: no lymphadenopathy noted Resp normal respiratory effort, normal air movement and clear to auscultation bilaterally Resp Narrative: Diminished breath sounds at the base, otherwise clear. Auscultation: Negative for crackles, rales, rhonchi or wheezes Cardio regular rate, regular rhythm, S1 normal heart sound, S2 normal heart sound, no murmurs and no JVD GI normal to inspection, nondistended, normoactive bowel sounds, soft to palpation, non-tender and non-distended; Negative for hepatosplenomegaly Extremity normal to inspection, full ROM and no clubbing, cyanosis or edema Skin no rashes or lesions noted, no wounds and no petechiae Neuro oriented x3, CN's II-XII intact bilaterally and moves all extremities Sensorium / Orientation: alert Speech: speech normal Motor Exam: strength 5/5 throughout Psych mental status grossly normal, affect normal and denies hallucinations Assessment & Plan Assessment/Plan (1) Community acquired pneumonia: (2) Oral candidiasis: (3) ELSA (acute kidney injury): (4) Hyperglycemic hyperosmolar nonketotic coma: (5) Atherosclerosis of [place] coronary artery of [place] heart without angina pectoris: (6) History of coronary artery stent placement: (7) Essential hypertension: (8) Hyperlipidemia: QUALIFIERS: Hyperlipidemia type: unspecified Qualified Code(s): E78.5 - Hyperlipidemia, unspecified (9) Chronic obstructive pulmonary disease (COPD): QUALIFIERS: COPD type: unspecified COPD Qualified Code(s): J44.9 - Chronic obstructive pulmonary disease, unspecified PLAN: This is 50 years old male patient presented to the emergency room because of shortness of breath that has been going on for almost 3 weeks, found to have highly elevated blood glucose consistent with hypoglycemic hyperosmolar nonketotic state, also found to have acute kidney injury, oral candidiasis and today, CT chest done and showed left lower lobe atelectasis consistent with community-acquired pneumonia. #1 hyperglycemic hyperosmolar nonketotic state/newly diagnosed type 2 diabetes mellitus: He is on IV insulin drip. Blood sugars down to 300s. He is not known diabetic before but hemoglobin A1c was 7.1% on November, and was 8% on February,. He is on ADA diet. Vital signs are stable, blood pressure improved. Plan: Continue insulin drip, once blood glucose less than 250, will stop insulin drip and start him on Lantus and sliding scale. Patient will need nutrition consult and diabetic education. #2 left lower lobe community-acquired pneumonia: Patient has been treated with Levaquin for several days as well as long prednisone taper, high-dose. He is still symptomatic. CT scan chest done today and showed left lower lobe infiltrate. He does have leukocytosis although WBC is trending down. Plan: Start IV Rocephin and Zithromax, incentive spirometer, sputum culture. #3 acute kidney injury: Due to #1. Baseline kidney function is normal. Admission creatinine was 2.25, patient has been on IV fluids. Today's creatinine is 1.34, improving. Plan to continue IV fluids, repeat BMP tomorrow morning. #4 oral candidiasis/mouth ulcerations: He does have significant erythema and ulceration of the roof of the mouth, very painful. He is already on nystatin swish and swallow. We will start him on BMX liquid for the pain. #5 CAD status post stents: Stable, continue Plavix, Lipitor, aspirin. Nitrate, lisinopril and metoprolol held today because blood pressure was low. #6 COPD: Currently, he is on room air. He is on DuoNeb every 6 hours, albuterol as needed. #7 hypertension: Blood pressure improved after IV fluid bolus. Nitrate, lisinopril and metoprolol as well as Aldactone on hold. #8 hyperlipidemia: Continue statins. #9 DVT prophylaxis: Subcu Lovenox. This note was generated with [employer]ond[employer] dictation software. It may contain incorrect words, spelling, and punctuation that were not noted in checking the note before signing. Charges/Coding Visit Charges Inpatient E&M: 46189 Subs Hosp L3
[2021-04-29 08:51] LABS: Anion Gap 7 (5-15); BUN 35 mg/dL (7-18); BUN/Creat Ratio 26.1 RATIO (10-20); Calcium,Total 9.4 mg/dL (8.5-10.1); Chloride 97 mmol/L (98-107); Creatinine, Serum 1.34 mg/dL (0.70-1.30); EST Glomerular Filtration Rate 60 mL/min (>60); Est Glom Filt Rate - Afr Amer 73 mL/min (>60); Estimated Creatinine Clearance 64.51 ml/min; Glucose 324 mg/dL (74-106); Potassium 3.4 mmol/L (3.5-5.1); Sodium Level 132 mmol/L (136-145)
--- NOTE | 2021-04-29 09:36 | EX.NTREPO ---
Medical Nutrition Therapy - History Current diet/nutrition support order:: 2000 marley consistent cho - Anthropometric Measurements Height:: 5 ft 8.11 in Weight:: 98.3 kg Body Mass Index (BMI):: 32.8 - Relevant Labs Relevant Labs:: WBC 16.1 K/mm3 (4.4-11.0) H 04/29/21 03:05 Neut % (Auto) 71.5 % (47-70) H 04/29/21 03:05 Lymph % (Auto) 18.0 % (19-41) L 04/29/21 03:05 Absolute Neuts (auto) 11.5 X10^3/uL (2.0-7.7) H 04/29/21 03:05 Sodium 132 mmol/L (136-145) L 04/29/21 08:10 Potassium 3.4 mmol/L (3.5-5.1) L 04/29/21 08:10 Chloride 97 mmol/L (98-107) L 04/29/21 08:10 Carbon Dioxide 33.0 mmol/L (21.0-32.0) H 04/29/21 03:05 BUN 35 mg/dL (7-18) H 04/29/21 08:10 Creatinine 1.34 mg/dL (0.70-1.30) H 04/29/21 08:10 Est GFR (MDRD) Af Amer 40 mL/min (>60) L 04/28/21 21:40 Est GFR (MDRD) Non-Af 53 mL/min (>60) L 04/29/21 03:05 BUN/Creatinine Ratio 26.1 RATIO (10-20) H 04/29/21 08:10 Glucose 324 mg/dL (74-106) H 04/29/21 08:10 Hemoglobin A1c 12.1 % (3.8-5.6) H 04/28/21 19:10 Calcium 10.5 mg/dL (8.5-10.1) H 04/28/21 15:35 AST 8 U/L (15-37) L 04/28/21 15:35 Alkaline Phosphatase 144 U/L (45-117) H 04/28/21 15:35 - Assessment Food and Nutrient Intake: Drank only apple juice this am at breakfast. UBW: 107.27 kg (8.4% wt loss in past 3-4 wks) - pt has had issues with polyuria, polydipsia and poor appetite for a few wks. Pt is not mad about wt loss as aware of obesity. - Nutrition Diagnosis: Intake Problem Excessive Carbohydrate Intake Intake Problem - Etiology: related to food and nutrition related knowledge deficit concerning appropriate amounts and types of dietary carbohydrate Intake Problem - Signs/Symptoms: as evidenced by A1c=12.1 and new diagnosis of diabetes. Status: Active Problem - Nutrition Diagnosis: Clinical Problem Unintended Weight Loss Clinical Problem - Etiology: related to new diagnosis of diabetes Clinical Problem - Signs/Symptoms: as evidenced by issues w/ polyuria, polydipsia, poor po intake for several weeks prior to adm resulting in 8.4% wt loss in past 3-4 weeks. Status: Active Problem - Protein Calorie Malnutrition Evidence of Malnutrition Exists: No Severe Protein Calorie Malnutrition:: Acute Illness/Injury - Nutrition Intervention Nutrition Prescription: [id number] marley / day (RMR x 1.3 - 500). 78-98 gm pro/day (.8-1 gm/kg). 3250 ml fluid/day (per ASPEN guidelines) - Food / Nutrient Delivery Interventions Nutrition support ordered as / adjusted to:: Change to 2000 marley Cardiac diet. Monitor need for ONS pending continued po intake (and if pt agreeable - pt not wanting at this time) Nutrition education provided?: Yes Nutrition Counseling: Talked to pt about need to have consistent cho intake at same meals times daily and to avoid sugary beverages. Pt will need to have more in-depth diet education when also available. Pt not ready for diet changes / info on SMBG at this time. - MNT Monitoring Active Nutrition Patient: Yes Nutrition Status: Requires Follow Up 3-5 Days - please contact RD/LD if questions/concerns at [phone].
--- NOTE | 2021-04-29 09:39 | RAD_ITS ---
STUDY: X-RAY - PARANASAL SINUSES REASON FOR EXAM: Male, 50 years old. Headache, postnasal drip TECHNIQUE: 3 view(s) of the paranasal sinuses were obtained. COMPARISON: None. FINDINGS: There is a 1.3 cm x 1.4 cm mucosal retention cyst or polyp at the base of the left maxillary sinus. Normal visualized facial bones. The soft tissue structures are unremarkable. RAD/Sinuses min 3 Views IMPRESSION: 1.3 cm x 1.4 cm mucosal retention cyst or polyp at the base of the left maxillary sinus. Electronically Signed: Jin Woodall MD at 10:18 EDT , Service support ,
[2021-04-29] MEDS: 0.9% Saline Lock 10 ML Syringe IV (10:01)
[2021-04-29] MEDS: Acetaminophen 325 MG Tablet 650 MG PO (10:02)
[2021-04-29] MEDS: BMX LIQUID 180 ML 15 ML PO ×3 (10:02→21:49)
[2021-04-29] MEDS: 0.9% Normal Saline 1,000 ML 100 ML IV ×2 (10:02→21:49)
[2021-04-29] MEDS: Loratadine 10 MG Tablet PO (10:05)
[2021-04-29] MEDS: Clopidogrel Bisulfate 75 MG Tablet PO (10:05)
[2021-04-29] MEDS: Aspirin 81 MG TAB.CHEW PO (10:05)
[2021-04-29] MEDS: amLODIPine 10 MG Tablet PO (10:05)
[2021-04-29] MEDS: predniSONE 20 MG Tablet PO ×2 (10:05→18:49)
[2021-04-29 10:21] LABS: Bedside Glucose 371 mg/dL (70-110)
[2021-04-29 11:11] LABS: Bedside Glucose 367 mg/dL (70-110)
[2021-04-29] MEDS: Potassium Chloride 10mEq/100mL 10 MEQ/100 ML IV.SOLN. 100 MEQ IV BOLUS ×2 (11:36→12:46)
[2021-04-29 11:58] LABS: Pathologist Review Reviewed
[2021-04-29] MEDS: NYSTATIN 500,000 UNIT/5 ML UDC 500000 UNIT PO ×3 (12:37→19:53)
[2021-04-29 12:46] LABS: Bedside Glucose 273 mg/dL (70-110)
[2021-04-29 13:50] LABS: Bedside Glucose 308 mg/dL (70-110)
--- NOTE | 2021-04-29 14:20 | CASEMGMT ---
RN TRISTIAN CANDY ATTENDANT CM to room to meet with patient for initial transition planning/care coordination assessment. VETO LUBIN introduced self and role at [facility]. Pt voices understanding and consents to assessment at this time. Pt resting in bed in no distress at this time. Pt is A/O at this time and answers all questions appropriately. Care providers, pharmacy, and demographics verified/updated at this time. PCP: Dr Hesham Lao Specialists:Dr Zuleta- pulmonology [facility] Insurance: MMO Prescription Benefit: Yes Living Will/HPOA: Pt does not currently have LW/HCPOA and declines info at this time. LNOK: , Cande Living Arrangements: Lives w/, step-dtr and step-son in upstairs apt w/12-15 steps to enter. Independent. 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 Transportation: Pt states drives self and states no transportation concerns at this time. also drives. DME: Pt has a nebulizer. Does not have a glucometer. Pt given script for glucometer and made aware can take to pharmacy of his choice. Pt also made aware of affordable [employer] brand @ [facility]. HHC/SNF:No history of either. No needs identified. Pt wishes to return home and states has no concerns with going home at time of discharge. CM to follow for any further discharge planning/needs. Pt voices no concerns/needs at this time. Advised pt to ask for CM if any questions/concerns/needs arise. Voices understanding. Pt made aware of Diabetic Clinic and given rac card/contact info and Dr Yang/endocrinology rac card. PLAN: Home w/ and discharge plans in place. Has been given script for glucometer. Plan is for pt to go home on insulin which is new for pt. RNAddy, aware. Nursing to do DM and Insulin teaching. José Miguel MUÑOZ RN, CM
--- NOTE | 2021-04-29 14:43 | CASEMGMT ---
VETO LUBIN NOTE: Pt screened with [facility] Palliative Care Screening Tool for strata 3, pt did not meet criteria. José Miguel GUON RN CM
[2021-04-29 15:41] LABS: Bedside Glucose 330 mg/dL (70-110)
[2021-04-29 16:55] LABS: Bedside Glucose 331 mg/dL (70-110)
[2021-04-29 17:51] LABS: Bedside Glucose 280 mg/dL (70-110)
[2021-04-29 19:31] LABS: Bedside Glucose 391 mg/dL (70-110)
[2021-04-29 20:21] LABS: Bedside Glucose 386 mg/dL (70-110)
[2021-04-29 21:10] LABS: Bedside Glucose 273 mg/dL (70-110)
[2021-04-29] MEDS: Atorvastatin Calcium 40 MG Tablet PO (21:55)
[2021-04-29 22:11] LABS: Bedside Glucose 205 mg/dL (70-110)
[2021-04-29] MEDS: Insulin Lispro 100 UNIT/ML INSULN.PEN SC (23:34)
[2021-04-29 23:46] LABS: Bedside Glucose 237 mg/dL (70-110)
[2021-04-30] VITALS (18 sets, daily range): BP systolic 104–180; BP diastolic 64–111; PULSE 77–105; RESP 14–21; TEMP 36.3–36.6; O2SAT 92–97; BMI 33.0
[2021-04-30] MEDS: Ipratropium/Albuterol Sulfate 3 ML AMPUL.NEB INHALATION ×4 (00:52→20:22)
[2021-04-30 04:19] LABS: Absolute Lymphocyte Count 1.98 X10^3/uL (0.83-4.51); Absolute Neutrophil Count 11.5 X10^3/uL (2.0-7.7); Basophil# 0.03 X10^3/uL; Basophil% 0.2 % (0-1); Eosinophil# 0.02 X10^3/uL; Eosinophils% 0.1 % (0-5); Lymphocyte # 1.98 X10^3/ul (0.83-4.51); Lymphocyte % 13.7 % (19-41); Mean Corp Hgb Conc 34.1 g/dL (32-36); Mean Platelet Vol. 11.9 fl (6.2-12.0); Monocyte# 0.76 X10^3/uL; Monocyte% 5.3 % (0-10); NRBC Flagged by Analyzer 0 % (0-5); Neutrophil # 11.51 X10^3/uL (2.7-7.7); Neutrophil % 79.9 % (47-70); Platelet Count 255 K/mm3 (150-450); RBC Distribution Width CV 12.8 % (11.6-14.6); RBC Distribution Width SD 40.8 fl (35.1-43.9); White Blood Count 14.4 K/mm3 (4.4-11.0)
[2021-04-30 04:58] LABS: Anion Gap 9 (5-15); BUN 24 mg/dL (7-18); BUN/Creat Ratio 19.8 RATIO (10-20); Calcium,Total 9.2 mg/dL (8.5-10.1); Chloride 97 mmol/L (98-107); Creatinine, Serum 1.21 mg/dL (0.70-1.30); EST Glomerular Filtration Rate 68 mL/min (>60); Est Glom Filt Rate - Afr Amer 82 mL/min (>60); Estimated Creatinine Clearance 71.45 ml/min; Glucose 350 mg/dL (74-106); Potassium 4.1 mmol/L (3.5-5.1); Sodium Level 133 mmol/L (136-145)
[2021-04-30] MEDS: amLODIPine 10 MG Tablet PO (06:08)
[2021-04-30] MEDS: BMX LIQUID 180 ML 15 ML PO ×3 (06:19→20:51)
[2021-04-30] MEDS: Insulin Lispro 100 UNIT/ML INSULN.PEN 6 UNIT SC ×2 (06:51→13:04)
[2021-04-30] MEDS: Insulin Lispro 100 UNIT/ML INSULN.PEN SC ×3 (06:52→20:42)
[2021-04-30 07:01] LABS: Bedside Glucose 296 mg/dL (70-110)
[2021-04-30] MEDS: Ondansetron 4 MG/2 ML Vial IV (09:23)
[2021-04-30] MEDS: 0.9% Saline Lock 10 ML Syringe IV ×2 (09:24→15:00)
--- NOTE | 2021-04-30 09:29 | PN.HOSP_ITS ---
Subjective Subjective Chief complaint: Follow-up after admission for hyperglycemic hyperosmolar nonketotic state, newly diagnosed type 2 diabetes mellitus, ELSA, oral candidiasis and left lower lobe community-acquired pneumonia. Patient seen and examined. No acute events overnight. He just threw up once. Now, he is feeling better. He denied abdominal pain. He stated that his breathing is getting better. Mouth pain and soreness is improving with BMX and nystatin. He is afebrile, blood pressure elevated, pulse ox is maintained on room air. Objective Data Objective Data Vital Signs: Vital Signs Temp Pulse Resp BP Pulse Ox 97.6 F L 105 H 16 163/101 H 95 04/30/21 07:00 04/30/21 08:00 04/30/21 08:00 04/30/21 08:00 04/30/21 08:00 Oxygen Flow Rate (L/min) 0 Oxygen Delivery Method Room Air Weight: 217 lb 13.067 oz Body Mass Index (BMI) 32.8 Intake & Output: Intake and Output for Last 24 Hours 04/28/21 04/29/21 04/30/21 23:59 23:59 23:59 Intake Total 2592.62 / 2592.62 5772.79 / 5892.79 1320 / 1320 Output Total 350 / 500 300 / 300 Balance 2592.62 / 2592.62 5422.79 / 5392.79 1020 / 1020 Lab / Micro Data Result Diagrams: 04/30/21 04:05 04/30/21 04:35 Labs: Laboratory Results - last 24 hr 04/28/21 04/29/21 04/29/21 15:35 10:11 11:08 WBC RBC Hgb Hct MCV MCH MCHC RDW Std Deviation RDW Coeff of Narcisa Plt Count MPV Immature Gran % (Auto) Neut % (Auto) Lymph % (Auto) [place] % (Auto) Eos % (Auto) Baso % (Auto) Absolute Neuts (auto) Absolute Lymphs (auto) Nucleated RBC % Diff Path Review Reviewed Sodium Potassium Chloride Carbon Dioxide Anion Gap BUN Creatinine Estim Creat Clear Calc Est GFR (MDRD) Af Amer Est GFR (MDRD) Non-Af BUN/Creatinine Ratio Glucose Calcium POC Glucose 371 H 367 H 04/29/21 04/29/21 04/29/21 12:35 13:46 15:12 WBC RBC Hgb Hct MCV MCH MCHC RDW Std Deviation RDW Coeff of Narcisa Plt Count MPV Immature Gran % (Auto) Neut % (Auto) Lymph % (Auto) [place] % (Auto) Eos % (Auto) Baso % (Auto) Absolute Neuts (auto) Absolute Lymphs (auto) Nucleated RBC % Diff Path Review Sodium Potassium Chloride Carbon Dioxide Anion Gap BUN Creatinine Estim Creat Clear Calc Est GFR (MDRD) Af Amer Est GFR (MDRD) Non-Af BUN/Creatinine Ratio Glucose Calcium POC Glucose 273 H 308 H 330 H 04/29/21 04/29/21 04/29/21 16:49 17:40 18:48 WBC RBC Hgb Hct MCV MCH MCHC RDW Std Deviation RDW Coeff of Narcisa Plt Count MPV Immature Gran % (Auto) Neut % (Auto) Lymph % (Auto) [place] % (Auto) Eos % (Auto) Baso % (Auto) Absolute Neuts (auto) Absolute Lymphs (auto) Nucleated RBC % Diff Path Review Sodium Potassium Chloride Carbon Dioxide Anion Gap BUN Creatinine Estim Creat Clear Calc Est GFR (MDRD) Af Amer Est GFR (MDRD) Non-Af BUN/Creatinine Ratio Glucose Calcium POC Glucose 331 H 280 H 391 H 04/29/21 04/29/21 04/29/21 20:01 21:04 22:02 WBC RBC Hgb Hct MCV MCH MCHC RDW Std Deviation RDW Coeff of Narcisa Plt Count MPV Immature Gran % (Auto) Neut % (Auto) Lymph % (Auto) [place] % (Auto) Eos % (Auto) Baso % (Auto) Absolute Neuts (auto) Absolute Lymphs (auto) Nucleated RBC % Diff Path Review Sodium Potassium Chloride Carbon Dioxide Anion Gap BUN Creatinine Estim Creat Clear Calc Est GFR (MDRD) Af Amer Est GFR (MDRD) Non-Af BUN/Creatinine Ratio Glucose Calcium POC Glucose 386 H 273 H 205 H 04/29/21 04/30/21 04/30/21 23:26 04:05 04:05 WBC 14.4 H RBC 5.00 Hgb 15.0 Hct 44.0 MCV 88.0 MCH 30.0 MCHC 34.1 RDW Std Deviation 40.8 RDW Coeff of Narcisa 12.8 Plt Count 255 MPV 11.9 Immature Gran % (Auto) 0.800 Neut % (Auto) 79.9 H Lymph % (Auto) 13.7 L [place] % (Auto) 5.3 Eos % (Auto) 0.1 Baso % (Auto) 0.2 Absolute Neuts (auto) 11.5 H Absolute Lymphs (auto) 1.98 Nucleated RBC % [address] Review Sodium Cancelled Potassium Cancelled Chloride Cancelled Carbon Dioxide Cancelled Anion Gap Cancelled BUN Cancelled Creatinine Cancelled Estim Creat Clear Calc Cancelled Est GFR (MDRD) Af Amer Cancelled Est GFR (MDRD) Non-Af Cancelled BUN/Creatinine Ratio Cancelled Glucose Cancelled Calcium Cancelled POC Glucose 237 H 04/30/21 04/30/21 04:35 06:49 WBC RBC Hgb Hct MCV MCH MCHC RDW Std Deviation RDW Coeff of Narcisa Plt Count MPV Immature Gran % (Auto) Neut % (Auto) Lymph % (Auto) [place] % (Auto) Eos % (Auto) Baso % (Auto) Absolute Neuts (auto) Absolute Lymphs (auto) Nucleated RBC % Diff Path Review Sodium 133 L Potassium 4.1 Chloride 97 L Carbon Dioxide 27.0 Anion Gap 9 BUN 24 H Creatinine 1.21 Estim Creat Clear Calc 71.45 Est GFR (MDRD) Af Amer 82 Est GFR (MDRD) Non-Af 68 BUN/Creatinine Ratio 19.8 Glucose 350 H Calcium 9.2 POC Glucose 296 H Micro: Microbiology 04/29/21 10:20 Sputum, Expectorated/Coughed Gram Stain - Final 04/28/21 15:25 Mucosa - Nose SARS-CoV-2 Antigen (Rapid) - Final Radiography Diagnostic Testing: Radiology Impression Chest CT 04/29/21 08:38 IMPRESSION: Increased markings at the lung bases with focal area of confluence at the left lung base suggestive of either atelectasis and/or infiltrates. Follow-up is recommended. Electronically Signed: Jin Woodall MD at 10:16 EDT , Service support , Sinuses X-Ray 04/29/21 09:39 IMPRESSION: 1.3 cm x 1.4 cm mucosal retention cyst or polyp at the base of the left maxillary sinus. Electronically Signed: Jin Woodall MD at 10:18 EDT , Service support , Physical Exam Const alert, oriented x3, no limitations and well nourished General Appearance: cooperative Exam Limitations: no limitations HEENT normocephalic, head/scalp atraumatic, external ears normal and external nose normal Eyes PERRL, EOMs intact bilaterally, conjunctivae normal and no scleral icterus General Eye: normal appearance of both eyes Neck no lymphadenopathy, supple, no meningeal signs, no JVD and no carotid bruits Lymph Lymphatic: no lymphadenopathy noted Resp normal respiratory effort, normal air movement and clear to auscultation bilaterally Resp Narrative: Diminished breath sounds at the base, otherwise clear. Auscultation: Negative for crackles, rales, rhonchi or wheezes Cardio regular rate, regular rhythm, S1 normal heart sound, S2 normal heart sound, no murmurs and no JVD GI normal to inspection, nondistended, normoactive bowel sounds, soft to palpation, non-tender and non-distended; Negative for hepatosplenomegaly Extremity normal to inspection, full ROM and no clubbing, cyanosis or edema Skin no rashes or lesions noted, no wounds and no petechiae Neuro oriented x3, CN's II-XII intact bilaterally and moves all extremities Sensorium / Orientation: awake and alert Speech: speech normal Motor Exam: strength 5/5 throughout Psych mental status grossly normal, affect normal and denies hallucinations Psych Narrative: Flat affect Assessment & Plan Assessment/Plan (1) Community acquired pneumonia: (2) Oral candidiasis: (3) ELSA (acute kidney injury): (4) Hyperglycemic hyperosmolar nonketotic coma: (5) Atherosclerosis of [place] coronary artery of [place] heart without angina pectoris: (6) History of coronary artery stent placement: (7) Essential hypertension: (8) Hyperlipidemia: QUALIFIERS: Hyperlipidemia type: unspecified Qualified Code(s): E78.5 - Hyperlipidemia, unspecified (9) Chronic obstructive pulmonary disease (COPD): QUALIFIERS: COPD type: unspecified COPD Qualified Code(s): J44.9 - Chronic obstructive pulmonary disease, unspecified PLAN: This is 50 years old male patient presented to the emergency room because of shortness of breath that has been going on for almost 3 weeks, found to have highly elevated blood glucose consistent with hypoglycemic hyperosmolar nonketotic state, also found to have acute kidney injury, oral candidiasis and today, CT chest done and showed left lower lobe atelectasis consistent with co mmunity-acquired pneumonia. #1 hyperglycemic hyperosmolar nonketotic state/newly diagnosed type 2 diabetes mellitus: He is off IV insulin drip. Currently, he is on Lantus nightly and premeal insulin lispro. Blood sugar has been in the range of 200-300. Expect prednisone was contributing. He is on ADA diet. Vital signs are stable, blood pressure improved. Plan to continue same treatment. #2 left lower lobe community-acquired pneumonia: He is on IV Rocephin and Zithromax. He has been afebrile, WBC is trending down slowly. Sputum culture is pending. Plan to continue same treatment. #3 acute kidney injury: Due to #1. Baseline kidney function is normal. Admission creatinine was 2.25, patient has been on IV fluids. Today's creatinine is 1.21, continue to improve. #4 oral candidiasis/mouth ulcerations: He is on nystatin and BMX. He reported improvement of the mouth pain and soreness. #5 CAD status post stents: Stable, continue Plavix, Lipitor, aspirin. Plan to resume isosorbide mononitrate and metoprolol because blood pressure start to go up. #6 COPD: Currently, he is on room air. He is on DuoNeb every 6 hours, albuterol as needed. #7 hypertension: Blood pressure elevated today. He is on Norvasc. Plan to resume metoprolol, clonidine and isosorbide mononitrate, start IV hydralazine as needed. Keep holding lisinopril, Aldactone and chlorthalidone. #8 hyperlipidemia: Continue statins. #9 DVT prophylaxis: Subcu Lovenox. This note was generated with [employer] dictation software. It may contain incorrect words, spelling, and punctuation that were not noted in checking the note before signing. Charges/Coding Visit Charges Inpatient E&M: 26324 Subs Hosp L2
--- NOTE | 2021-04-30 09:53 | NT.THERAPY_ITS ---
Medical Nutrition Therapy - History Nutrition Services has been consulted to:: Manage nutrient details of diet order, Conduct nutrition education Current diet/nutrition support order:: Cardiac, 2000 calorie controlled - Anthropometric Measurements Height:: 5 ft 8.11 in Weight:: 98.8 kg Body Mass Index (BMI):: 33.0 - Relevant Labs Relevant Labs:: WBC 14.4 K/mm3 (4.4-11.0) H 04/30/21 04:05 Neut % (Auto) 79.9 % (47-70) H 04/30/21 04:05 Lymph % (Auto) 13.7 % (19-41) L 04/30/21 04:05 Absolute Neuts (auto) 11.5 X10^3/uL (2.0-7.7) H 04/30/21 04:05 Sodium 133 mmol/L (136-145) L 04/30/21 04:35 Potassium 3.4 mmol/L (3.5-5.1) L 04/29/21 08:10 Chloride 97 mmol/L (98-107) L 04/30/21 04:35 Carbon Dioxide 33.0 mmol/L (21.0-32.0) H 04/29/21 03:05 BUN 24 mg/dL (7-18) H 04/30/21 04:35 Creatinine 1.34 mg/dL (0.70-1.30) H 04/29/21 08:10 Est GFR (MDRD) Af Amer 40 mL/min (>60) L 04/28/21 21:40 Est GFR (MDRD) Non-Af 53 mL/min (>60) L 04/29/21 03:05 BUN/Creatinine Ratio 26.1 RATIO (10-20) H 04/29/21 08:10 Glucose 350 mg/dL (74-106) H 04/30/21 04:35 Hemoglobin A1c 12.1 % (3.8-5.6) H 04/28/21 19:10 Calcium 10.5 mg/dL (8.5-10.1) H 04/28/21 15:35 AST 8 U/L (15-37) L 04/28/21 15:35 Alkaline Phosphatase 144 U/L (45-117) H 04/28/21 15:35 - Assessment Food and Nutrient Intake: Fair intake observed at breakfast. Pt complains of nausea after eating. Did not eat much at dinner last night. Wt increase of 0.5kg since last review. Pt w/ significant wt loss [employer] d/t inadequate oral intake, but states long-term goal would be to gradually lose wt. No special diet followed at home. States does cooking shopping. Likes pasta, juice, sweet green tea. - Nutrition Diagnosis: Intake Problem Excessive Carbohydrate Intake Intake Problem - Etiology: related to food and nutrition related knowledge deficit concerning appropriate amounts and types of dietary carbohydrate Intake Problem - Signs/Symptoms: as evidenced by A1C 12.1%, pt reports of excessive consumption of juice, sweetened teas, and other CHO containing foods Status: Active Problem - Nutrition Diagnosis: Clinical Problem Unintended Weight Loss Clinical Problem - Etiology: related to hyperglycemia Clinical Problem - Signs/Symptoms: as evidenced by polyuria, polydipsia, estimated PO intake meeting <75% of pt's nutritional needs x 4 weeks, unintentional 9kg/8.4% wt loss in past 3-4 weeks. Status: Active Problem Acute Disease or Injury Related Malnutrition Clinical Problem - Etiology: severe, acute malnutrition related to decreased energy intake w/ hyperglycemia, mouth sores Clinical Problem - Signs/Symptoms: as evidenced by estimated PO intake meeting <75% of pt's nutritional needs x 4 weeks, unintentional 9kg/8.4% wt loss in past 3-4 weeks. Status: Active Problem - Protein Calorie Malnutrition Evidence of Malnutrition Exists: Yes Severe Protein Calorie Malnutrition:: Acute Illness/Injury - Nutrition Intervention Nutrition Prescription: 9858-9846 calories / day (RMR x 1.3 - 500). 78-98 g protein/day (0.8-1 g/kg). 3430mL fluid/day (35mL/kg) - Food / Nutrient Delivery Interventions Summary of nutrition intervention:: Nutrition education provided Nutrition support ordered as / adjusted to:: continue 2000 calorie controlled, cardiac diet. Nutrition education provided?: Yes Nutrition Counseling: Further discussed w/ pt souces of CHO in diet. Reviewed plate method using ADA handout at bedside. Pt requesting RDN follow-up w/ pt later this date or tomorrow when present. - MNT Monitoring Active Nutrition Patient: Yes Nutrition Status: Requires Follow Up in 1-2 Days
[2021-04-30] MEDS: predniSONE 20 MG Tablet PO ×2 (10:21→17:25)
[2021-04-30] MEDS: Aspirin 81 MG TAB.CHEW PO (10:21)
[2021-04-30] MEDS: Loratadine 10 MG Tablet PO (10:22)
[2021-04-30] MEDS: Isosorbide Mononitrate 60 MG Tablet PO (10:22)
[2021-04-30] MEDS: cloNIDine HCl 0.2 MG Tablet PO ×2 (10:22→20:52)
[2021-04-30] MEDS: Clopidogrel Bisulfate 75 MG Tablet PO (10:23)
[2021-04-30 13:00] LABS: Bedside Glucose 373 mg/dL (70-110)
[2021-04-30] MEDS: NYSTATIN 500,000 UNIT/5 ML UDC 500000 UNIT PO ×4 (13:14→20:41)
[2021-04-30] MEDS: levoFLOXacin IV 750 MG/150 ML BAG 100 MG IV (15:00)
[2021-04-30 16:35] LABS: Bedside Glucose 416 mg/dL (70-110)
[2021-04-30] MEDS: Insulin Lispro 100 UNIT/ML INSULN.PEN 20 UNIT SC (17:24)
[2021-04-30] MEDS: Atorvastatin Calcium 40 MG Tablet PO (20:53)
[2021-04-30 21:06] LABS: Bedside Glucose 274 mg/dL (70-110)
--- NOTE | 2021-04-30 22:12 | NURSING ---
Education given on insulin administration. Pt was able to do return demonstration by giving self insulin.
[2021-05-01 03:00] VITALS: BP 138/93; PULSE 70; RESP 16; TEMP 36.6; O2SAT 96
[2021-05-01] MEDS: BMX LIQUID 180 ML 15 ML PO ×2 (04:48)
[2021-05-01 08:00] VITALS: BP 157/91; PULSE 74; RESP 18; TEMP 36.6; O2SAT 96
[2021-05-01 08:05] LABS: Bedside Glucose 232 mg/dL (70-110)
[2021-05-01] MEDS: Insulin Lispro 100 UNIT/ML INSULN.PEN 6 UNIT SC (08:35)
[2021-05-01] MEDS: Insulin Lispro 100 UNIT/ML INSULN.PEN SC (08:36)
[2021-05-01] MEDS: predniSONE 20 MG Tablet PO (08:39)
[2021-05-01] MEDS: NYSTATIN 500,000 UNIT/5 ML UDC 500000 UNIT PO (08:40)
[2021-05-01] MEDS: Clopidogrel Bisulfate 75 MG Tablet PO (08:40)
[2021-05-01] MEDS: Aspirin 81 MG TAB.CHEW PO (08:41)
[2021-05-01] MEDS: cloNIDine HCl 0.2 MG Tablet PO (08:41)
[2021-05-01] MEDS: Loratadine 10 MG Tablet PO (08:42)
[2021-05-01] MEDS: Isosorbide Mononitrate 60 MG Tablet PO (08:42)
--- NOTE | 2021-05-01 09:00 | PCM.DC ---
Discharge Instructions Diet Discharge Diet: Low fat / Low cholesterol and 1800 Calorie Control Diet Activity Discharge Activity: Return to Normal Activity Return to work on:: 05/09/21 Weight Bearing Status: Full weight bearing Dressing / Incision Call your doctor if you observe: Fever of 101 or Higher, Shortness of breath, Dizziness, Fainting spells, Chest pain, Increased palpitations (irregular heartbeat) and Uncontrolled pain Follow Up Care Test Results: Test results from this visit will be discussed in further detail at your follow-up appointment, if applicable. Discharge Plan Admission Admit Date/Time: 04/28/21 17:49 Primary Reason for Your Visit: Pneumonia, hyperglycemia, type 2 diabetes, oral thrush. Attending Provider: Franklyn Jackson Primary Care Provider: Hesham Lao Instructions Patient Instructions: Using a Blood Sugar Log, Hyperglycemia (High Blood Sugar), Hypoglycemia (Low Blood Sugar), What Is Type 2 Diabetes?, How to Check Your Blood Sugar, Using Injected Insulin, Understanding Type 2 Diabetes Discharge Orders/Prescriptions Prescriptions: New nystatin 100,000 unit/mL Suspension 500,000 unit PO 4X/DAY 7 Days Qty: 140 RF: 0 lidocaine HCl [Lidocaine Viscous] 2 % Solution 15 ml PO 4X/DAY PRN PRN (Reason: Mouth sores, pain) 5 Days RF: 0 levofloxacin 750 mg tablet 750 mg PO DAILY Qty: 7 RF: 0 prednisolone sodium phosphate 10 mg tablet,disintegrating 10 mg PO DAILY Qty: 10 RF: 0 metformin 500 mg tablet 500 mg PO BID Qty: 90 RF: 0 Lantus Solostar U-100 Insulin 100 unit/mL (3 mL) insulin pen 15 unit subcut BID Qty: 15 RF: 0 Humalog KwikPen Insulin 200 unit/mL (3 mL) insulin pen See Protocol unit subcut TID Qty: 6 RF: 0 Continued aspirin 81 MG tablet,chewable 81 mg PO DAILY Qty: 90 RF: 0 ipratropium-albuterol 0.5 mg-3 mg(2.5 mg base)/3 mL solution for nebulization 3 ml inhalation BID RF: 0 chlorthalidone 25 mg tablet 25 mg PO DAILY RF: 0 spironolactone 25 mg tablet 25 mg PO DAILY RF: 0 budesonide 0.5 mg/2 mL suspension for nebulization 0.5 mg inhalation BID RF: 0 clonidine HCl 0.2 mg tablet 0.2 mg PO BID RF: 0 albuterol sulfate 90 mcg/actuation HFA aerosol inhaler 2 puff INHALATION Q4H PRN PRN (Reason: Wheezing) RF: 0 Trelegy Ellipta 100-62.5-25 mcg Blister With Device 1 inh INHALATION DAILY RF: 0 lisinopril 30 mg tablet 30 mg PO BID RF: 0 atorvastatin 40 mg tablet 40 mg PO QHS RF: 0 metoprolol tartrate 100 mg tablet 100 mg PO BID RF: 0 clopidogrel 75 mg tablet 75 mg PO DAILY RF: 0 isosorbide mononitrate 60 mg tablet extended release 24 hr 60 mg PO DAILY RF: 0 amlodipine 10 mg tablet 10 mg PO DAILY RF: 0 loratadine 10 mg tablet 10 mg PO DAILY RF: 0 Discontinued prednisone 10 mg tablet 30 mg PO BID RF: 0 levofloxacin 500 mg tablet 500 mg PO DAILY RF: 0 Other Ambulatory Orders: Glucometer (Routine) Location: None Selected Ordered By: Dr. Franklyn Murrieta Referrals / Follow Up: Hesham Lao MD [Primary Care Provider] - Within 1 Week Disposition Disposition (needs filled in before D/C Order can be placed): Home, self care
--- NOTE | 2021-05-01 10:40 | DS.PCM_ITS ---
Providers Date of Admission: 04/28/21 Primary Care Physician: Dr. Hesham Lao MD Reason For Visit: HYPEROSMOLAR HYPERGLYCEMIA Diagnosis Discharge Diagnosis (1) Community acquired pneumonia: Status: Acute Code(s): J18.9 - Pneumonia, unspecified organism (2) Oral candidiasis: Status: Acute Code(s): B37.0 - Candidal stomatitis (3) ELSA (acute kidney injury): Status: Acute Code(s): N17.9 - Acute kidney failure, unspecified (4) Atherosclerosis of [place] coronary artery of [place] heart without angina pectoris: Status: Chronic Code(s): I25.10 - Atherosclerotic heart disease of [place] coronary artery without angina pectoris (5) History of coronary artery stent placement: Status: Resolved Code(s): Z95.5 - Presence of coronary angioplasty implant and graft (6) Essential hypertension: Status: Chronic Code(s): I10 - Essential (primary) hypertension (7) Hyperlipidemia: Status: Chronic Code(s): E78.5 - Hyperlipidemia, unspecified Qualifiers: Hyperlipidemia type: unspecified Qualified Code(s): E78.5 - Hyperlipidemia, unspecified (8) Chronic obstructive pulmonary disease (COPD): Status: Chronic Code(s): J44.9 - Chronic obstructive pulmonary disease, unspecified Qualifiers: COPD type: unspecified COPD Qualified Code(s): J44.9 - Chronic ob structive pulmonary disease, unspecified (9) Type 2 diabetes mellitus with hyperosmolar nonketotic hyperglycemia: Status: Acute Code(s): E11.00 - Type 2 diabetes mellitus with hyperosmolarity without nonketotic hype rglycemic-hyperosmolar coma ([facility]) Medications at Discharge Home Medications aspirin 81 mg PO DAILY #90 tab.chew 12/12/16 Trelegy Ellipta 1 inh INHALATION DAILY 04/28/21 albuterol sulfate 2 puff INHALATION Q4H PRN PRN 04/28/21 amlodipine 10 mg PO DAILY 04/28/21 atorvastatin 40 mg PO QHS 04/28/21 budesonide 0.5 mg INHALATION BID 04/28/21 chlorthalidone 25 mg PO DAILY 04/28/21 clonidine HCl 0.2 mg PO BID 04/28/21 clopidogrel 75 mg PO DAILY 04/28/21 ipratropium-albuterol 3 ml INHALATION BID 04/28/21 isosorbide mononitrate 60 mg PO DAILY 04/28/21 lisinopril 30 mg PO BID 04/28/21 loratadine 10 mg PO DAILY 04/28/21 metoprolol tartrate 100 mg PO BID 04/28/21 spironolactone 25 mg PO DAILY 04/28/21 insulin glargine [Lantus Solostar U-100 Insulin] 15 unit SUBCUT BID #15 ml 05/01/21 insulin lispro [Humalog KwikPen Insulin] See Protocol SUBCUT TID #6 ml 05/01/21 levofloxacin 750 mg PO DAILY #7 tab 05/01/21 lidocaine HCl [Lidocaine Viscous] 15 ml PO 4X/DAY PRN PRN 5 Days ml 05/01/21 metformin 500 mg PO BID #90 tab 05/01/21 nystatin 500,000 unit PO 4X/DAY 7 Days #140 ml 05/01/21 prednisolone sodium phosphate 10 mg PO DAILY #10 tab 05/01/21 Hospital Course Operations None Procedures None Summary of Care Provided Minutes Spent on Discharge: 33 Hospital Course: This is 50 years old male patient presented to the emergency room because of shortness of breath that has been going on for almost 3 weeks, found to have highly elevated blood glucose consistent with hypoglycemic hyperosmolar nonketotic state, also found to have acute kidney injury, oral candidiasis and today, CT chest done and showed left lower lobe atelectasis consistent with community-acquired pneumonia. #1 hyperglycemic hyperosmolar nonketotic state/newly diagnosed type 2 diabetes mellitus: Initially was admitted to ICU, started on IV insulin drip and IV fluids as well as BMP every 4 hours per protocol. His hemoglobin A1c was 12.1%. It was 8% on February 2021 and 7.1% on November,. On admission, blood glucose was 1216. With IV insulin drip, blood glucose came down to around 300s. Patient was started on Lantus and premeal tomorrow as well as sliding scale. Diabetic education was provided by nutrition team. Patient was discharged on Lantus 15 units twice daily, metformin 500 mg p.o. twice daily in addition to high medium dose Humalog sliding scale, instructions on how to inject insulin, check blood glucose and keep blood sugar log was provided. #2 left lower lobe community-acquired pneumonia: CT scan chest revealed left lower lobe infiltrate. Initially, was treated with IV Rocephin and Zithromax. Initial sputum culture revealed possible Pseudomonas aeruginosa and patient was switched to IV Levaquin and Zithromax was discontinued. He remained afebrile, WBC was trending down. He remained on room air. Final sputum culture revealed Pseudomonas aeruginosa that was resistant to Levaquin and has intermediate sensitivity to ciprofloxacin. Since patient clinically has been improving, has been afebrile and WBC is trending down and he has been on room air, it was appropriate to keep patient on Levaquin. I had a discussion with this patient with Dr. Jimenez, the infectious disease specialist, over the phone and he agreed that since patient is clinically improving, the Pseudomonas aeruginosa is likely to be a colonization. I did not put an official consultation for Dr. Jimenez. Patient was discharged on Levaquin 750 mg p.o. daily for 7 days of treatment. #3 acute kidney injury: Due to #1. Baseline kidney function is normal. Attributed to hyperglycemia and pneumonia. Admission creatinine was 2.25, treated with IV fluids and upon discharge, serum creatinine was 1.21, resolved. #4 oral candidiasis/mouth ulcerations: Likely due to steroids that he has been on over the last 3 weeks. Treated with nystatin and BMX. Patient discharged on nystatin swish and swallow 4 times a day for 1 week and BMX solution as needed for mouth pain and soreness. #5 CAD status post stents: Stable, continued on Plavix, Lipitor, aspirin, nitrate, metoprolol. #7 hypertension: Blood pressure was elevated at times. Initially, lisinopril, Aldactone and chlorthalidone held because of acute kidney injury. Patient started back on his medications upon discharge. Patient discharged home in a stable medical condition, discharged on Levaquin 750 mg p.o. daily for 7 days, started on Lantus 15 units twice daily in addition to high medium dose sliding scale, started on Metformin 500 mg p.o. twice daily, nystatin 4 times a day for 1 week for oral thrush, instructions were given for how to inject insulin, keep blood glucose log, how to check blood glucose, recommended follow-up with PCP in 1 week. This note was generated with [employer] software. It may contain incorrect words, spelling, and punctuation that were not noted in checking the note before signing. Physical Exam Const alert, oriented x3, no limitations and well nourished General Appearance: cooperative HEENT normocephalic, head/scalp atraumatic, external ears normal and external nose normal Eyes PERRL, EOMs intact bilaterally, conjunctivae normal and no scleral icterus General Eye: normal appearance of both eyes Neck no lymphadenopathy, supple, no meningeal signs, no JVD and no carotid bruits Lymph Lymphatic: no lymphadenopathy noted Resp normal respiratory effort, normal air movement and clear to auscultation bilaterally Resp Narrative: Diminished breath sounds at the base, otherwise clear. Auscultation: Negative for crackles, rales, rhonchi or wheezes Cardio regular rate, regular rhythm, S1 normal heart sound, S2 normal heart sound, no murmurs and no JVD GI normal to inspection, nondistended, normoactive bowel sounds, soft to palpation, non-tender and non-distended; Negative for hepatosplenomegaly Extremity normal to inspection, full ROM and no clubbing, cyanosis or edema Skin no rashes or lesions noted, no wounds and no petechiae Neuro oriented x3, CN's II-XII intact bilaterally and moves all extremities Sensorium / Orientation: awake and alert Speech: speech normal Motor Exam: strength 5/5 throughout Psych mental status grossly normal and affect normal Appearance: appropriate Weight / BMI Weight Weight: 217 lb 13.067 oz Body Mass Index (BMI) 33.0 ABG / Lab / Microbiology Data Result Diagrams: 04/30/21 04:05 04/30/21 04:35 Laboratory: Laboratory Results - last 24 hr 04/30/21 04/30/21 04/30/21 12:53 16:24 20:35 POC Glucose 373 H 416 H 274 H 05/01/21 07:55 POC Glucose 232 H Microbiology: Microbiology 04/29/21 10:20 Gram Stain - Final Sputum, Expectorated/Coughed Respiratory Culture - Final Pseudomonas aeroginosa Microbiology 04/29/21 10:20 Sputum, Expectorated/Coughed Gram Stain - Final 04/29/21 10:20 Sputum, Expectorated/Coughed Respiratory Culture - Final Pseudomonas aeroginosa 04/28/21 15:25 Mucosa - Nose SARS-CoV-2 Antigen (Rapid) - Final D/C Instructions Discharge Diet: Low fat / Low cholesterol and 1800 Calorie Control Diet Return to work on: 05/09/21 Weight Bearing Status: Full weight bearing Call your doctor if you observe: Fever of 101 or Higher, Shortness of breath, Dizziness, Fainting spells, Chest pain, Increased palpitations (irregular heartbeat) and Uncontrolled pain Meaningful Use Info Meaningful Use Diagnoses (Choose all that apply): None applicable Discharge Plan Admission Admit Date/Time: 04/28/21 17:49 Primary Reason for Your Visit: Pneumonia, hyperglycemia, type 2 diabetes, oral thrush. Attending Provider: Franklyn Jackson Primary Care Provider: Hesham Lao Instructions Patient Instructions: Using a Blood Sugar Log, Hyperglycemia (High Blood Sugar), Hypoglycemia (Low Blood Sugar), What Is Type 2 Diabetes?, How to Check Your Blood Sugar, Using Injected Insulin, Understanding Type 2 Diabetes Discharge Orders/Prescriptions Prescriptions: New nystatin 100,000 unit/mL Suspension 500,000 unit PO 4X/DAY 7 Days Qty: 140 RF: 0 lidocaine HCl [Lidocaine Viscous] 2 % Solution 15 ml PO 4X/DAY PRN PRN (Reason: Mouth sores, pain) 5 Days RF: 0 levofloxacin 750 mg tablet 750 mg PO DAILY Qty: 7 RF: 0 prednisolone sodium phosphate 10 mg tablet,disintegrating 10 mg PO DAILY Qty: 10 RF: 0 metformin 500 mg tablet 500 mg PO BID Qty: 90 RF: 0 Lantus Solostar U-100 Insulin 100 unit/mL (3 mL) insulin pen 15 unit subcut BID Qty: 15 RF: 0 Humalog KwikPen Insulin 200 unit/mL (3 mL) insulin pen See Protocol unit subcut TID Qty: 6 RF: 0 Continued aspirin 81 MG tablet,chewable 81 mg PO DAILY Qty: 90 RF: 0 ipratropium-albuterol 0.5 mg-3 mg(2.5 mg base)/3 mL solution for nebulization 3 ml inhalation BID RF: 0 chlorthalidone 25 mg tablet 25 mg PO DAILY RF: 0 spironolactone 25 mg tablet 25 mg PO DAILY RF: 0 budesonide 0.5 mg/2 mL suspension for nebulization 0.5 mg inhalation BID RF: 0 clonidine HCl 0.2 mg tablet 0.2 mg PO BID RF: 0 albuterol sulfate 90 mcg/actuation HFA aerosol inhaler 2 puff INHALATION Q4H PRN PRN (Reason: Wheezing) RF: 0 Trelegy Ellipta 100-62.5-25 mcg Blister With Device 1 inh INHALATION DAILY RF: 0 lisinopril 30 mg tablet 30 mg PO BID RF: 0 atorvastatin 40 mg tablet 40 mg PO QHS RF: 0 metoprolol tartrate 100 mg tablet 100 mg PO BID RF: 0 clopidogrel 75 mg tablet 75 mg PO DAILY RF: 0 isosorbide mononitrate 60 mg tablet extended release 24 hr 60 mg PO DAILY RF: 0 amlodipine 10 mg tablet 10 mg PO DAILY RF: 0 loratadine 10 mg tablet 10 mg PO DAILY RF: 0 Discontinued prednisone 10 mg tablet 30 mg PO BID RF: 0 levofloxacin 500 mg tablet 500 mg PO DAILY RF: 0 Other Ambulatory Orders: Glucometer (Routine) Location: None Selected Ordered By: Dr. Franklyn Jackson Novofine Autocover 30G Needle (UD) Location: None Selected Ordered By: Dr. Franklyn Jackson Referrals / Follow Up: Hesham Lao MD [Primary Care Provider] - Within 1 Week Disposition Disposition (needs filled in before D/C Order can be placed): Home, self care Charges/Coding Visit Charges Inpatient E&M: 31899 Disch Hosp
[2021-05-01] MEDS: amLODIPine 10 MG Tablet PO (11:13)
[2021-05-01 11:31] LABS: Bedside Glucose 416 mg/dL (70-110)
--- NOTE | 2021-05-02 14:41 | CASEMGMT ---
VETO LUBIN Discharge Follow-up Phone Call: ARITika: Kimmie Strata: 4 Call Date: 05/02/21 Discharge Date: 05/01/21 Time of Call: 1440 Duration: 5 min Admitting Diagnosis: hyperglycemia VETO LUBIN completed follow-up phone call after recent hospitalization. Patient answered and asked to speak with . states patient was doing well with blood sugars but was running high at lunch. states they have been in contact with Dr. Yang's office and have follow-up appt scheduled. Also have follow-up with [facility] at [facility]. states they were able to fill prescriptions without any issues. had no further questions or concerns at this time.
== END 2021-05-01 11:32 | disposition home or self-care (01) | DRG 637 ==
LOC: ED 16:48 → ICU 18:25 → MS3 04-30 14:05
PROVIDERS: Hospitalist; Emergency Provider Emergency Medicine; PCP Family Medicine; Visit Provider Hospitalist
DX: E11.00 Type 2 diabetes mellitus with hyperosmolarity without nonketotic hyperglycemic-hyperosmolar coma (NKHHC) (principal); J18.9 Pneumonia, unspecified organism; B37.0 Candidal stomatitis; N17.9 Acute kidney failure, unspecified; E87.1 Hypo-osmolality and hyponatremia; J44.0 Chronic obstructive pulmonary disease with (acute) lower respiratory infection; Z16.23 Resistance to quinolones and fluoroquinolones; I25.10 Atherosclerotic heart disease of native coronary artery without angina pectoris; B96.5 Pseudomonas (aeruginosa) (mallei) (pseudomallei) as the cause of diseases classified elsewhere; I25.5 Ischemic cardiomyopathy; E66.9 Obesity, unspecified; E78.5 Hyperlipidemia, unspecified; I10 Essential (primary) hypertension; F17.210 Nicotine dependence, cigarettes, uncomplicated; T38.0X5A Adverse effect of glucocorticoids and synthetic analogues, initial encounter; Z95.5 Presence of coronary angioplasty implant and graft; Z79.02 Long term (current) use of antithrombotics/antiplatelets; Z79.82 Long term (current) use of aspirin; Z79.52 Long term (current) use of systemic steroids; Z79.899 Other long term (current) drug therapy; Z68.33 Body mass index [BMI] 33.0-33.9, adult; I25.2 Old myocardial infarction
CPT/HCPCS: 70220; 71045; 71250; 74018; 80048; 80053; 82947; 82962; 83036; 83690; 83880; 84484; 85025; 85379; 87070; 87077; 87184; 87186; 87205; 87426; 93005; 94640; 97802; 97803; 99285; 99406; J7030; A4216; J0696; J2405; J3490

== ENCOUNTER → 2021-05-05 14:39 | Outpatient (CLI) | payer OTHER, SELFPAY ==
[2020-03-18 10:45] VITALS: BMI 35.6
[2021-05-05 13:51] VITALS: BMI 33.0
[2021-05-05 16:41] LABS: Hematocrit 42.4 % (40-54); Hemoglobin 14.1 g/dL (13.0-16.5); Mean Corp Hgb Conc 33.3 g/dL (32-36); Mean Corpuscular Hgb 29.7 pg (27.0-32.0); Mean Corpuscular Volume 89.3 fL (80-94); Mean Platelet Vol. 10.7 fl (6.2-12.0); POSITIVE COUNT YES; POSITIVE MORPHOLOGY YES; Platelet Count 407 K/mm3 (150-450); RBC Distribution Width CV 13.1 % (11.6-14.6); RBC Distribution Width SD 42.4 fl (35.1-43.9); Red Blood Count 4.75 M/mm3 (4.6-6.2); White Blood Count 21.4 K/mm3 (4.4-11.0)
[2021-05-05 16:44] LABS: Differential Indicated MANUAL DIFF
[2021-05-05 16:56] LABS: ALB/GLOB Ratio 0.9 RATIO (0.9-2.4); AST(SGOT) 25 U/L (15-37); Alanine Aminotransfer ALT/SGPT 64 U/L (16-61); Albumin, Serum 3.3 g/dL (3.2-5.0); Alkaline Phosphatase 91 U/L (45-117); Anion Gap 4 (5-15); BUN 21 mg/dL (7-18); BUN/Creat Ratio 20.2 RATIO (10-20); Calcium,Total 10.2 mg/dL (8.5-10.1); Chloride 98 mmol/L (98-107); Creatinine, Serum 1.04 mg/dL (0.70-1.30); EST Glomerular Filtration Rate 81 mL/min (>60); Est Glom Filt Rate - Afr Amer 97 mL/min (>60); Globulin 3.6 g/dL (2.2-4.2); Glucose 303 mg/dL (74-106); Potassium 4.9 mmol/L (3.5-5.1); Protein, Total 6.9 g/dL (6.4-8.2); Sodium Level 134 mmol/L (136-145)
[2021-05-05 17:02] LABS: Neutrophil-Segmented 68 % (47-70); Promyelocyte 3 % (0-0)
[2021-05-05 17:03] LABS: Absolute Neutrophil Count 14.6 X10^3/uL (2.0-7.7); Lymphocyte 15 % (19-41); Monocyte 14 % (0-10)
[2021-05-05 17:04] LABS: Absolute Lymphocyte Count 3.21 X10^3/uL (0.83-4.51); Platelet Estimate ADEQUATE (ADEQ); Red Cell Morphology NORM C+C NORMAL (NORM C&C)
[2021-05-06 12:48] LABS: Pathologist Review Reviewed
== END ==
PROVIDERS: PCP Internal Medicine; Referring Provider Physician Assistant; Visit Provider Physician Assistant
DX: I10 Essential (primary) hypertension (principal); E11.00 Type 2 diabetes mellitus with hyperosmolarity without nonketotic hyperglycemic-hyperosmolar coma (NKHHC)
CPT/HCPCS: 36415; 80053; 85025

== ENCOUNTER 2021-05-06 16:16 | Inpatient (IN) | payer OTHER, SELFPAY ==
[2021-05-05 14:48] VITALS: BMI 33.0; BMI 35.6
[2021-05-06] VITALS (11 sets, daily range): BP systolic 101–132; BP diastolic 61–76; PULSE 73–84; RESP 14–28; TEMP 35.9–37; O2SAT 94–99; BMI 33.0
--- NOTE | 2021-05-06 16:39 | EKG12_ITS ---
Test Reason : FOLLOW UP Blood Pressure : / mmHG Vent. Rate : 080 BPM Atrial Rate : 080 BPM P-R Int : 170 ms QRS Dur : 102 ms QT Int : 362 ms P-R-T Axes : 046 004 -14 degrees QTc Int : 417 ms Normal sinus rhythm Normal ECG Confirmed by MATT EVANGELISTA, GERTRUDIS ([id number]), story editor EVELIO CURRY ([id number]) on 05/09/2021 11:07:53 A M Referred By: CAROLINA Confirmed By:RANDI GUTIERREZ MD
--- NOTE | 2021-05-06 16:41 | EX.ED.DYSGE1 ---
HPI History of Present Illness Chief Complaint: Abn Labs Informant: patient and spouse/S.O. Onset/Context/Timing Onset: Days Current Severity: Mild Maximum Severity: Mild Narrative Narrative: 50-year-old male extensive past medical history of [place], CAD with 7 stents on Plavix and aspirin. Also COPD, hypertension and new onset diabetes last week. Last week he was admitted to the hospital for pneumonia and DKA. He was discharged on Sunday. Today he was called by his doctor's office that he has not really been feeling that well and they called him and told him his outpatient labs were abnormal and he needed to return the emergency department and may need to be readmitted to the hospital for IV antibiotics. They were concerned the oral antibiotic. Was not covering his pneumonia. Prior similar symptoms: Yes Recent Illness/Hospitalization: Yes PFSH PFSH Medical History Asthma Atherosclerosis of [place] coronary artery of [place] heart without angina pectoris Chronic obstructive pulmonary disease (COPD) COPD (chronic obstructive pulmonary disease) Essential hypertension History of non-ST elevation myocardial infarction (NSTEMI) (11/22/20) Hyperlipidemia Hypertension Ischemic cardiomyopathy Myocardial infarct Nicotine dependence Non-ST elevation [place] (NSTEMI) Obesity (BMI 30.0-34.9) Smoker Home Medications aspirin 81 mg PO DAILY #90 tab.chew 12/12/16 [Rx Last Taken 04/28/21] Trelegy Ellipta 1 inh INHALATION DAILY 04/28/21 [History Last Taken 04/28/21] albuterol sulfate 2 puff INHALATION Q4H PRN PRN 04/28/21 [History Last Taken 04/28/21 15:30] amlodipine 10 mg PO DAILY 04/28/21 [History Last Taken 04/28/21] atorvastatin 40 mg PO QHS 04/28/21 [History Last Taken 04/27/21] budesonide 0.5 mg INHALATION BID 04/28/21 [History Last Taken 04/28/21] chlorthalidone 25 mg PO DAILY 04/28/21 [History Last Taken 04/28/21] clonidine HCl 0.2 mg PO BID 04/28/21 [History Last Taken 04/28/21] clopidogrel 75 mg PO DAILY 04/28/21 [History Last Taken 04/28/21] ipratropium-albuterol 3 ml INHALATION BID 04/28/21 [History Last Taken 04/28/21] isosorbide mononitrate 60 mg PO DAILY 04/28/21 [History Last Taken 04/28/21] lisinopril 30 mg PO BID 04/28/21 [History Last Taken 04/28/21] loratadine 10 mg PO DAILY 04/28/21 [History Last Taken Unknown] metoprolol tartrate 100 mg PO BID 04/28/21 [History Last Taken 04/28/21] spironolactone 25 mg PO DAILY 04/28/21 [History Last Taken 04/28/21] insulin lispro [Humalog KwikPen Insulin] See Protocol SUBCUT TID #6 ml 05/01/21 [Rx Last Taken Unknown] levofloxacin 750 mg PO DAILY #7 tab 05/01/21 [Rx Last Taken Unknown] lidocaine HCl [Lidocaine Viscous] 15 ml PO 4X/DAY PRN PRN 5 Days ml 05/01/21 [Rx Last Taken Unknown] metformin 500 mg PO BID #90 tab 05/01/21 [Rx Last Taken Unknown] nystatin 500,000 unit PO 4X/DAY 7 Days #140 ml 05/01/21 [Rx Last Taken Unknown] prednisolone sodium phosphate 10 mg PO DAILY #10 tab 05/01/21 [Rx Last Taken Unknown] insulin glargine [Lantus Solostar U-100 Insulin] 30 unit SUBCUT QHS 05/06/21 [History Last Taken Unknown] Allergy/AdvReac Type Severity Reaction Status Date / Time amoxicillin trihydrate Allergy Rash Verified 05/06/21 16:17 [From Augmentin] potassium clavulanate Allergy Rash Verified 05/06/21 16:17 [From Augmentin] codeine AdvReac Nausea Verified 05/06/21 16:17 Family History Sister Myocardial infarction, Onset Age: 41 Diabetes Mother COPD (chronic obstructive pulmonary disease) Asthma Rheumatoid arthritis CVA (cerebral vascular accident) Hypertension Grandmother Diabetes Surgical History History of appendectomy History of coronary artery stent placement (11/22/20) History of hernia repair (2008) History of neck surgery History of umbilical hernia repair (1971) Social History Smoking Status: Current every day smoker tobacco type: cigarettes Tobacco: How many years used: 20 Electronic Cigarette Use: not used second hand exposure: Yes alcohol intake: current alcohol intake frequency: 0-2 drinks per day Alcohol type: beer substance use type: does not use caffeine: Yes Type: carbonated beverages Number of servings: 2 and tea Number of servings: 6 what type of physical activity do you participate in: none ROS ROS ED ROS Narrative States is felt fatigued. Review of Systems ROS Unobtainable: Denies due to encephalopathy Constitutional Constitutional ED: Denies chills or fever(s) Eyes Eyes: Denies change in vision ENT ENT ED: Denies ear pain or sore throat Cardiovascular Cardiovascular: Denies chest pain Respiratory/Chest Respiratory/Chest: Reports cough and dyspnea Gastrointestinal Gastrointestinal: Denies abdominal pain, diarrhea, nausea or vomiting Genitourinary Genitourinary ED: Denies dysuria Musculoskeletal Musculoskeletal: Denies myalgias Integumentary Denies rash Neurologic Neurologic: Denies headache(s) Psychiatric Psychiatric: Denies depression Endocrine Endocrinology: Denies polyuria Allergic/Immunologic Allergic/Immunologic ED: Denies urticaria EXAM Physical Exam Narrative Exam Narrative: Middle-age male no acute distress. Vital signs stable afebrile. Pulse ox 96% on room air no signs hypoxia. HEENT exam unremarkable. Neck nontender no lymphadenopathy. Lungs expiratory wheezes. No rales or rhonchi. Heart regular rate and rhythm rate about 85 no murmur. Abdomen soft nontender normal bowel sounds no peritoneal signs. Moving all 4 extremities. No edema. Normal transportation department head strength. Normal dorsi plantar flexion. Back nontender. Neurologically awake alert no focal deficits. Const Vital Signs: 05/06/21 16:17 05/06/21 17:18 05/06/21 17:34 Temperature 96.7 F L 98.1 F Temperature Source Temporal Oral Pulse Rate 84 81 Respiratory Rate 14 24 H Blood Pressure 102/61 101/71 Blood Pressure Mean 74 81 Pulse Ox 96 95 96 Oxygen Delivery Method Room Air Room Air Room Air 05/06/21 17:35 05/06/21 18:00 05/06/21 19:00 Temperature 97.4 F L 98 F 98.6 F Temperature Source Oral Oral Oral Pulse Rate 79 81 Respiratory Rate 28 H 28 H Blood Pressure 112/75 109/72 Blood Pressure Mean 87 84 Pulse Ox 94 95 Oxygen Delivery Method Room Air Room Air Positive well nourished and well developed General Appearance ED: well developed HEENT Reports moist mucous membranes Negative for trauma or tenderness Eyes PERRL and EOMs intact bilaterally Neck no lymphadenopathy, supple and no JVD General: Negative for tenderness Chest Wall inspection of chest normal and palpation of chest normal Resp normal respiratory effort Auscultation: wheezes GI normal to inspection, nondistended, normoactive bowel sounds, non-tender, non-distended and no masses Inspection: Negative for abdominal distention Auscultation: normoactive bowel sounds Palpation: soft; Negative for tender, guarding or rebound tenderness present Back/Spine no CVA tenderness General Back: Negative for CVA tenderness Extremity normal to inspection General Extremety ED: Yes tenderness; Negative for edema General Extremity: Negative for edema Neuro oriented x3 and CN's II-XII intact bilaterally Sensorium / Orientation: alert; Negative for lethargic or stuporous Motor Exam: strength 5/5 throughout Psych mental status grossly normal Skin no rashes or lesions noted and no wounds MDM MDM MDM Narrative Medical decision making narrative: Middle aged male with extensive past medical history. Recent admission for pneumonia and DKA which was new onset diabetes at that time. Sent in by primary care physician's office due to abnormal labs and concern for outpatient antibiotic failure for his pneumonia. Repeat exam at 7:35 no change. Discussed with patient his test results. We will have the hospitalist evaluate the patient for admission. I reviewed the patient's blood cultures reportedly they are positive for Pseudomonas which is resistant to his outpatient Levaquin. It was sensitive to Zosyn which I will start. He will be treated his severe sepsis due to his lactic acid level, leukocytosis and admitted. Lab Data Attestation: I reviewed the patient's lab results. Lab results narrative: White count is elevated 19.1. Hemoglobin 13. No bands. PT PTT INR unremarkable. Electrolytes unremarkable gap of 5. Creatinine 1.2. Liver enzymes normal. Lactic acid elevated 2.7. UA negative. Serum blood sugar is elevated to 73 is a known diabetic. Labs: Laboratory Results - last 24 hr 05/06/21 05/06/21 05/06/21 17:15 17:15 17:15 WBC 19.1 H RBC 4.40 L Hgb 13.2 Hct 39.3 L MCV 89.3 MCH 30.0 MCHC 33.6 RDW Std Deviation 41.8 RDW Coeff of Narcisa 12.9 Plt Count 366 MPV 10.1 Immature Gran % (Auto) ACTIVITY THERAPY SPECIALIST Neut % (Auto) ACTIVITY THERAPY SPECIALIST Lymph % (Auto) ACTIVITY THERAPY SPECIALIST [place] % (Auto) ACTIVITY THERAPY SPECIALIST Eos % (Auto) ACTIVITY THERAPY SPECIALIST Baso % (Auto) ACTIVITY THERAPY SPECIALIST Absolute Neuts (auto) 15.9 H Absolute Lymphs (auto) 2.10 Total Counted 100 Neutrophils % (Manual) 83 H Lymphocytes % (Manual) 11 L Monocytes % (Manual) 5 Eosinophils % (Manual) 1 Nucleated RBC % ACTIVITY THERAPY SPECIALIST Diff Path Review May foll Platelet Estimate ADEQUATE RBC Morphology NORM C+C PT 12.1 INR 1.0 APTT < 20.0 L Sodium 136 Potassium 4.3 Chloride 101 Carbon Dioxide 30.0 Anion Gap 5 BUN 23 H Creatinine 1.20 Estim Creat Clear Calc 74.46 Est GFR (MDRD) Af Amer 83 Est GFR (MDRD) Non-Af 68 BUN/Creatinine Ratio 19.2 Glucose 273 H Lactic Acid Calcium 9.8 Total Bilirubin 0.20 AST 20 ALT 56 Alkaline Phosphatase 81 Total Protein 6.5 Albumin 3.0 L Globulin 3.5 Albumin/Globulin Ratio 0.9 Urine Color Urine Clarity Urine pH Ur Specific [place] Urine Protein Urine Glucose (UA) Urine Ketones Urine Occult Blood Urine Nitrite Urine Bilirubin Urine Urobilinogen Ur Leukocyte Esterase Urine RBC Urine WBC Ur Squamous Epith Cells Urine Bacteria Urine Mucus 05/06/21 05/06/21 17:15 18:05 WBC RBC Hgb Hct MCV MCH MCHC RDW Std Deviation RDW Coeff of Narcisa Plt Count MPV Immature Gran % (Auto) Neut % (Auto) Lymph % (Auto) [place] % (Auto) Eos % (Auto) Baso % (Auto) Absolute Neuts (auto) Absolute Lymphs (auto) Total Counted Neutrophils % (Manual) Lymphocytes % (Manual) Monocytes % (Manual) Eosinophils % (Manual) Nucleated RBC % Diff Path Review Platelet Estimate RBC Morphology PT INR APTT Sodium Potassium Chloride Carbon Dioxide Anion Gap BUN Creatinine Estim Creat Clear Calc Est GFR (MDRD) Af Amer Est GFR (MDRD) Non-Af BUN/Creatinine Ratio Glucose Lactic Acid 2.7 H* Calcium Total Bilirubin AST ALT Alkaline Phosphatase Total Protein Albumin Globulin Albumin/Globulin Ratio Urine Color Yellow Urine Clarity Clear Urine pH 5.0 Ur Specific [place] 1.025 Urine Protein 15 H Urine Glucose (UA) 1000 H Urine Ketones 5 H Urine Occult Blood Negative Urine Nitrite Negative Urine Bilirubin Negative Urine Urobilinogen Normal Ur Leukocyte Esterase Negative Urine RBC 0 SEEN Urine WBC 0 SEEN Ur Squamous Epith Cells 0 SEEN Urine Bacteria 0 SEEN Urine Mucus 0 SEEN Radiography Chest X-Ray - ED: 1 View, Read by ED Physician, Read by Radiologist, Normal, Heart, Lungs, Mediastinum, Bony Structures, No Acute Disease and Chronic Changes Diagnostic Testing: Radiology Impression Chest X-Ray 05/06/21 17:34 IMPRESSION: Normal x-ray examination of the chest. Electronically Signed: Kj Brown MD at 17:54 EDT , Service support , EKG Initial EKG: Attestation: I personally reviewed and interpreted this EKG as follows: Interpretation: Sinus Rhythm and No Acute Injury Pattern Comments: Normal sinus rhythm rate 80 no acute signs of [place] or ischemia and unchanged from prior EKG from April 28. Prior EKG tracings: available for review Prior: Unchanged Discharge Plan Dx/Rx/DC Orders Clinical Impression: Leukocytosis, Hyperglycemia, History of recent pneumonia, Bacteremia, Severe sepsis Disposition Disposition: Acute Care Hospital [facility]
[2021-05-06] MEDS: 0.9% Normal Saline 1,000 ML 999 ML IV (17:31)
--- NOTE | 2021-05-06 17:34 | RAD_ITS ---
STUDY: X-RAY CHEST REASON FOR EXAM: Male, 50 years old. cough TECHNIQUE: Single AP portable view of the chest. COMPARISON: 04/28/2021 FINDINGS: The lungs are clear and expanded. There is no demonstrated pleural abnormality. Normal size heart. Normal mediastinum and soniya. Normal visualized pulmonary arteries. Normal visualized aortic arch and descending thoracic aorta. Normal visualized thoracic spine. Normal visualized ribs, clavicles, and shoulders. There is no demonstrated abnormality of the visualized soft tissue structures of the upper abdomen. RAD/Chest 1 View (Portable) IMPRESSION: Normal x-ray examination of the chest. Electronically Signed: Kj Brown MD at 17:54 EDT , Service support ,
[2021-05-06 17:39] LABS: Hematocrit 39.3 % (40-54); Hemoglobin 13.2 g/dL (13.0-16.5); Mean Corp Hgb Conc 33.6 g/dL (32-36); Mean Corpuscular Volume 89.3 fL (80-94); Mean Platelet Vol. 10.1 fl (6.2-12.0); POSITIVE COUNT YES; POSITIVE MORPHOLOGY YES; Platelet Count 366 K/mm3 (150-450); RBC Distribution Width CV 12.9 % (11.6-14.6); RBC Distribution Width SD 41.8 fl (35.1-43.9); White Blood Count 19.1 K/mm3 (4.4-11.0)
[2021-05-06 17:48] LABS: Prothrombin Time (Protime)PT. 12.1 SECONDS (11.7-14.9)
[2021-05-06 17:54] LABS: ALB/GLOB Ratio 0.9 RATIO (0.9-2.4); AST(SGOT) 20 U/L (15-37); Alanine Aminotransfer ALT/SGPT 56 U/L (16-61); Alkaline Phosphatase 81 U/L (45-117); Anion Gap 5 (5-15); BUN 23 mg/dL (7-18); BUN/Creat Ratio 19.2 RATIO (10-20); Calcium,Total 9.8 mg/dL (8.5-10.1); Chloride 101 mmol/L (98-107); EST Glomerular Filtration Rate 68 mL/min (>60); Est Glom Filt Rate - Afr Amer 83 mL/min (>60); Estimated Creatinine Clearance 74.46 ml/min; Globulin 3.5 g/dL (2.2-4.2); Glucose 273 mg/dL (74-106); Potassium 4.3 mmol/L (3.5-5.1); Protein, Total 6.5 g/dL (6.4-8.2); Sodium Level 136 mmol/L (136-145)
[2021-05-06 18:06] LABS: Partial Thromboplast Time < 20.0 Seconds (24.1-36.2)
[2021-05-06 18:16] LABS: Bacteria 0 SEEN /hpf (None Seen); Mucous, Urine 0 SEEN /hpf (<or=2+); Red Blood Cells-Urine 0 SEEN /hpf (0-5); Squamous Epithelial Cells - UA 0 SEEN /hpf (0-5); White Blood Cells 0 SEEN /hpf (0-5)
[2021-05-06 18:17] LABS: Eosinophil 1 % (0-5); Lymphocyte 11 % (19-41); Monocyte 5 % (0-10); Neutrophil-Segmented 83 % (47-70); Platelet Estimate ADEQUATE (ADEQ); Red Cell Morphology NORM C+C NORMAL (NORM C&C); Total Cells Counted 100 (MANUAL DIFF)
[2021-05-06 18:20] LABS: Differential Indicated MANUAL DIFF; Scan Smear per Review Criteria MANUAL DIFF
[2021-05-06 18:21] LABS: Absolute Neutrophil Count 15.9 X10^3/uL (2.0-7.7)
[2021-05-06 18:22] LABS: Color, Urine Yellow (Yellow); Glucose, Dipstick 1000 mg/dl (Normal); Ketone-Dipstick 5 mg/dl (Negative); Leukocyte Esterase-Dipstick Negative /ul (Negative); Nitrite-Dipstick Negative (Negative); Occult Blood-Urine Negative /ul (Negative); Protein-Dipstick 15 mg/dl (Negative); Specific Gravity, Urine 1.025 (1.002-1.030); Urine Bilirubin Dipstick Negative (Negative); Urine Clarity Clear (Clear); Urine Urobilinogen Normal (Normal)
[2021-05-06 18:36] LABS: Lactic Acid 2.7 mmol/L (0.4-1.9)
--- NOTE | 2021-05-06 20:02 | PCM.HP.STD ---
[facility] - General General Date of Admission: 05/06/21 HPI Narrative LATONYA ELDER, is a 50 M with a significant history of CAD status post 7 stents; COPD and tobacco abuse who was sent from the PCP office because of elevated white counts on CBC drawn a day before presentation. This is patient's account. However Emergency department doctor report the patient was sent to the ED because blood culture previously drawn at the hospital returned positive for Pseudomonas aeruginosa which is resistant on Levaquin the patient is currently taking outpatient. Patient was recently admitted at the hospital (04/28/2021 to 05/01/2021) with community acquired pneumonia and hyperosmolar hyperglycemia. Blood culture and sputum culture was positive for Pseudomonas aeruginosa. Patient was discharged on Levaquin which was found to be resistant to Pseudomonas. Patient denies any new symptoms. He reports chronic shortness of breath. PFSH Medical History Asthma Atherosclerosis of [place] coronary artery of [place] heart without angina pectoris Chronic obstructive pulmonary disease (COPD) COPD (chronic obstructive pulmonary disease) Essential hypertension History of non-ST elevation myocardial infarction (NSTEMI) (11/22/20) Hyperlipidemia Hypertension Ischemic cardiomyopathy Myocardial infarct Nicotine dependence Non-ST elevation [place] (NSTEMI) Obesity (BMI 30.0-34.9) Smoker Home Medications aspirin 81 mg PO DAILY #90 tab.chew 12/12/16 [Rx Last Taken 04/28/21] Trelegy Ellipta 1 inh INHALATION DAILY 04/28/21 [History Last Taken 04/28/21] albuterol sulfate 2 puff INHALATION Q4H PRN PRN 04/28/21 [History Last Taken 04/28/21 15:30] amlodipine 10 mg PO DAILY 04/28/21 [History Last Taken 04/28/21] atorvastatin 40 mg PO QHS 04/28/21 [History Last Taken 04/27/21] budesonide 0.5 mg INHALATION BID 04/28/21 [History Last Taken 04/28/21] chlorthalidone 25 mg PO DAILY 04/28/21 [History Last Taken 04/28/21] clonidine HCl 0.2 mg PO BID 04/28/21 [History Last Taken 04/28/21] clopidogrel 75 mg PO DAILY 04/28/21 [History Last Taken 04/28/21] ipratropium-albuterol 3 ml INHALATION BID 04/28/21 [History Last Taken 04/28/21] isosorbide mononitrate 60 mg PO DAILY 04/28/21 [History Last Taken 04/28/21] lisinopril 30 mg PO BID 04/28/21 [History Last Taken 04/28/21] loratadine 10 mg PO DAILY 04/28/21 [History Last Taken Unknown] metoprolol tartrate 100 mg PO BID 04/28/21 [History Last Taken 04/28/21] spironolactone 25 mg PO DAILY 04/28/21 [History Last Taken 04/28/21] insulin lispro [Humalog KwikPen Insulin] See Protocol SUBCUT TID #6 ml 05/01/21 [Rx Last Taken Unknown] levofloxacin 750 mg PO DAILY #7 tab 05/01/21 [Rx Last Taken Unknown] lidocaine HCl [Lidocaine Viscous] 15 ml PO 4X/DAY PRN PRN 5 Days ml 05/01/21 [Rx Last Taken Unknown] metformin 500 mg PO BID #90 tab 05/01/21 [Rx Last Taken Unknown] nystatin 500,000 unit PO 4X/DAY 7 Days #140 ml 05/01/21 [Rx Last Taken Unknown] prednisolone sodium phosphate 10 mg PO DAILY #10 tab 05/01/21 [Rx Last Taken Unknown] insulin glargine [Lantus Solostar U-100 Insulin] 30 unit SUBCUT QHS 05/06/21 [History Last Taken Unknown] Allergy/AdvReac Type Severity Reaction Status Date / Time amoxicillin trihydrate Allergy Rash Verified 05/06/21 16:17 [From Augmentin] potassium clavulanate Allergy Rash Verified 05/06/21 16:17 [From Augmentin] codeine AdvReac Nausea Verified 05/06/21 16:17 Family History Sister Myocardial infarction, Onset Age: 41 Diabetes Mother COPD (chronic obstructive pulmonary disease) Asthma Rheumatoid arthritis CVA (cerebral vascular accident) Hypertension Grandmother Diabetes Surgical History History of appendectomy History of coronary artery stent placement (11/22/20) History of hernia repair (2008) History of neck surgery History of umbilical hernia repair (1971) Social History Smoking Status: Current every day smoker tobacco type: cigarettes Tobacco: How many years used: 20 Electronic Cigarette Use: not used second hand exposure: Yes alcohol intake: current alcohol intake frequency: 0-2 drinks per day Alcohol type: beer substance use type: does not use caffeine: Yes Type: carbonated beverages Number of servings: 2 and tea Number of servings: 6 what type of physical activity do you participate in: none ROS ROS Narrative 12 point review of system is negative except as stated in HPI. Vital Signs Vital Signs Vital Signs: 05/06/21 16:17 05/06/21 17:18 05/06/21 17:34 Temperature 96.7 F L 98.1 F Temperature Source Temporal Oral Pulse Rate 84 81 Respiratory Rate 14 24 H Blood Pressure 102/61 101/71 Blood Pressure Mean 74 81 Pulse Ox 96 95 96 Oxygen Delivery Method Room Air Room Air Room Air 05/06/21 17:35 05/06/21 18:00 05/06/21 19:00 Temperature 97.4 F L 98 F 98.6 F Temperature Source Oral Oral Oral Pulse Rate 79 81 Respiratory Rate 28 H 28 H Blood Pressure 112/75 109/72 Blood Pressure Mean 87 84 Pulse Ox 94 95 Oxygen Delivery Method Room Air Room Air Weight Weight: 101.6 kg Body Mass Index (BMI) 33.0 Physical Exam Narrative Physical exam: General: Well-nourished, well-developed, no acute distress Head: Normocephalic, atraumatic, no tenderness Eyes: PERRLA, EOMI ENT, no trauma, moist mucous membranes, no rhinorrhea Neck: Nontender, full range of motion, no spinal tenderness, deformities, step-off CVS: Regular rate and rhythm Respiratory no acute distress, clear to auscultation bilaterally, chest wall nontender, no wheezing Abdomen: Soft, nontender, nondistended, normal bowel sounds, no masses : Deferred Back: Nontender, no CVA tenderness, no midline spinal tenderness, deformities, step-offs Extremities: Nontender full range of motion, no trauma Skin: Normal color, no trauma, abrasions Neuro: Alert, oriented, cranial nerves II through XII grossly intact. Results Lab / Micro Data Result Diagrams: 05/06/21 17:15 05/06/21 17:15 Labs: Laboratory Results - last 24 hr 05/06/21 05/06/2105/06/21 17:15 17:15 17:15 WBC 19.1 H RBC 4.40 L Hgb 13.2 Hct 39.3 L MCV 89.3 MCH 30.0 MCHC 33.6 RDW Std Deviation 41.8 RDW Coeff of Narcisa 12.9 Plt Count 366 MPV 10.1 Immature Gran % (Auto) AIR QUALITY SPECIALIST Neut % (Auto) AIR QUALITY SPECIALIST Lymph % (Auto) AIR QUALITY SPECIALIST [place] % (Auto) AIR QUALITY SPECIALIST Eos % (Auto) AIR QUALITY SPECIALIST Baso % (Auto) AIR QUALITY SPECIALIST Absolute Neuts (auto) 15.9 H Absolute Lymphs (auto) 2.10 Total Counted 100 Neutrophils % (Manual) 83 H Lymphocytes % (Manual) 11 L Monocytes % (Manual) 5 Eosinophils % (Manual) 1 Nucleated RBC % AIR QUALITY SPECIALIST Diff Path Review May foll Platelet Estimate ADEQUATE RBC Morphology NORM C+C PT 12.1 INR 1.0 APTT < 20.0 L Sodium 136 Potassium 4.3 Chloride 101 Carbon Dioxide 30.0 Anion Gap 5 BUN 23 H Creatinine 1.20 Estim Creat Clear Calc 74.46 Est GFR (MDRD) Af Amer 83 Est GFR (MDRD) Non-Af 68 BUN/Creatinine Ratio 19.2 Glucose 273 H Lactic Acid Calcium 9.8 Total Bilirubin 0.20 AST 20 ALT 56 Alkaline Phosphatase 81 Total Protein 6.5 Albumin 3.0 L Globulin 3.5 Albumin/Globulin Ratio 0.9 Urine Color Urine Clarity Urine pH Ur Specific [place] Urine Protein Urine Glucose (UA) Urine Ketones Urine Occult Blood Urine Nitrite Urine Bilirubin Urine Urobilinogen Ur Leukocyte Esterase Urine RBC Urine WBC Ur Squamous Epith Cells Urine Bacteria Urine Mucus 05/06/21 05/06/21 17:15 18:05 WBC RBC Hgb Hct MCV MCH MCHC RDW Std Deviation RDW Coeff of Narcisa Plt Count MPV Immature Gran % (Auto) Neut % (Auto) Lymph % (Auto) [place] % (Auto) Eos % (Auto) Baso % (Auto) Absolute Neuts (auto) Absolute Lymphs (auto) Total Counted Neutrophils % (Manual) Lymphocytes % (Manual) Monocytes % (Manual) Eosinophils % (Manual) Nucleated RBC % Diff Path Review Platelet Estimate RBC Morphology PT INR APTT Sodium Potassium Chloride Carbon Dioxide Anion Gap BUN Creatinine Estim Creat Clear Calc Est GFR (MDRD) Af Amer Est GFR (MDRD) Non-Af BUN/Creatinine Ratio Glucose Lactic Acid 2.7 H* Calcium Total Bilirubin AST ALT Alkaline Phosphatase Total Protein Albumin Globulin Albumin/Globulin Ratio Urine Color Yellow Urine Clarity Clear Urine pH 5.0 Ur Specific [place] 1.025 Urine Protein 15 H Urine Glucose (UA) 1000 H Urine Ketones 5 H Urine Occult Blood Negative Urine Nitrite Negative Urine Bilirubin Negative Urine Urobilinogen Normal Ur Leukocyte Esterase Negative Urine RBC 0 SEEN Urine WBC 0 SEEN Ur Squamous Epith Cells 0 SEEN Urine Bacteria 0 SEEN Urine Mucus 0 SEEN Radiology Impression Chest X-Ray 05/06/21 17:34 IMPRESSION: Normal x-ray examination of the chest. Electronically Signed: Kj Brown MD at 17:54 EDT , Service support , Assessment & Plan Assessment/Plan (1) Severe sepsis: (2) Bacteremia: (3) Hyperglycemia: PLAN: Severe sepsis secondary to community acquired pneumonia and Pseudomonas aeruginosa bacteremia On presentation respiratory rate was more than 20. White count was 19.1. Lactic acid is 2.7. Of note patient is on Metformin. Impression of chest x-ray by radiology: Normal x-rays of initial chest. Actual chest x-ray image was independently interpreted and agree with the radiologist interpretation. Respiratory culture and blood culture reported 05/01/2021 showed Pseudomonas aeruginosa. Discharge summary on patient's recent admission (04/28/2021 to 05/01/2021) was reviewed. On recent hospitalization patient was initially treated with IV Rocephin and Zithromax. With a sputum culture revealing Pseudomonas patient was switched to IV Levaquin and Zithromax was discontinued. Reportedly patient remained afebrile and white count was trending down. Hospitalist discussed the case with ID doctor and since patient was clinically improving Pseudomonas aeruginosa was thought to be colonization and patient was discharged home on Levaquin. Review of labs showed that his white counts on 05/05/2021 was 21.4. While his white count on 04/30/2021 was 14.4. This is confounded by use of a steroid therapy. Stop home Levaquin. Received Zosyn at the emergency department and continued. Hold home amlodipine since blood pressure is soft. Chlorthalidone; lisinopril and metoprolol continued with parameters. Hold isosorbide for now. Trend CBC and BMP. With elevated lactic acid of 2.7 will admit to the intensive care unit and will consult medical services manager. Diabetes mellitus Patient with hyperglycemia on presentation Basal insulin continued. Prandial insulin adjusted Accu-Chek QA [facility] with correction scale insulin ordered. Hold Metformin. COPD Stable Continue steroid taper. Breathing treatment continued. DVT Prophylaxis Subcutaneous Lovenox ordered Charges/Coding Visit Charges Inpatient E&M: 42018 Init Hosp L3
[2021-05-06 21:32] LABS: Reflex Lactate? Y
[2021-05-06 22:27] LABS: Lactic Acid 1.8 mmol/L (0.4-1.9)
[2021-05-07] VITALS (8 sets, daily range): BP systolic 119–135; BP diastolic 68–75; PULSE 67–76; RESP 16–24; TEMP 36.4–36.9; O2SAT 94–97
[2021-05-07] MEDS: MELATONIN 3 MG TABLET PO (00:17)
[2021-05-07 00:26] LABS: Bedside Glucose 302 mg/dL (70-110)
[2021-05-07] MEDS: Acetaminophen 325 MG Tablet 650 MG PO (03:11)
--- NOTE | 2021-05-07 06:09 | CON.PCM.CC_ITS ---
Assessment & Plan Assessment/Plan (1) Severe sepsis: PLAN: RECOMMENDATIONS: 1. Discuss the need for further antimicrobial therapy with infectious diseases. 2. Continue aerosol treatments as substitution for home inhaler regimen. 3. Follow-up with outpatient pulmonary provider. 4. The patient is stable for discharge home from my perspective. IMPRESSIONS: 1. Severe sepsis The patient was recently admitted to the hospital and treated for community- acquired pneumonia. He was discharged home on Levaquin. However, subsequent sputum culture from April 29 was positive for Pseudomonas aeruginosa, which was resistant to Levaquin. Nevertheless, the patient's chest x-ray does not demonstrate any focal signs of infection. The patient is quite asymptomatic from a respiratory perspective. He was apparently being treated with steroids by his pulmonary provider on an outpatient basis, which likely was the reason his white count was elevated at presentation. Severe sepsis has been ruled out. Given the lack of radiographic evidence of pneumonia and lack of respiratory symptoms, it is questionable whether the patient needs to be treated with antibiotics any further. Recommend discussing with infectious diseases. 2. History of COPD/diabetes mellitus/hyperlipidemia/hypertension Complicates care, management, recovery and prognosis. Resume baseline inhaler regimen on discharge. This note was generated with [employer] dictation software. It may contain incorrect words, spelling, and punctuation that were not noted in checking the note before signing. HPI Consult Data Date of Consult: 05/07/21 HPI Narrative Reason for Consultation: Severe sepsis HPI Narrative: The patient is a 50-year-old male, with a history as outlined bel ow, who presented to the emergency department on May 06 at the prompting of his primary care office over concerns for abnormal lab work. The patient was recently admitted to the hospital April 28, during which time, he was treated for HHS, acute kidney injury and community-acquired pneumonia. The patient was discharged home on Levaquin for 7 days. His creatinine improved with IV fluid hydration. At the time the patient was evaluated in his primary care office on May 05, a CBC with differential was obtained which revealed an elevated white blood cell count to 21,000. Sputum culture from April 29 was positive for Pseudomonas aeruginosa, which was resistant to Levaquin. On presentation to the emergency department, the patient was noted to be afebrile with a blood pressure of 102/61 mmHg. He was maintaining appropriate oxygen saturations on room air. Initial laboratory evaluation revealed a white blood cell count of 19,000. Chemistry profile was unrevealing. Lactate was elevated to 2.7. Urine analysis was unremarkable. The patient was started on broad-spectrum antimicrobials and received supplemental IV fluid hydration. He was initially admitted to the medical intensive care unit for management of his severe sepsis. [facility] Medical History Asthma Atherosclerosis of hoh coronary artery of hoh heart without angina pectoris Chronic obstructive pulmonary disease (COPD) COPD (chronic obstructive pulmonary disease) Essential hypertension History of non-ST elevation myocardial infarction (NSTEMI) (11/22/20) Hyperlipidemia Hypertension Ischemic cardiomyopathy Myocardial infarct Nicotine dependence Non-ST elevation AL (NSTEMI) Obesity (BMI 30.0-34.9) Smoker Home Medications aspirin 81 mg PO DAILY #90 tab.chew 12/12/16 [Rx Last Taken 04/28/21] Trelegy Ellipta 1 inh INHALATION DAILY 04/28/21 [History Last Taken 04/28/21] albuterol sulfate 2 puff INHALATION Q4H PRN PRN 04/28/21 [History Last Taken 04/28/21 15:30] amlodipine 10 mg PO DAILY 04/28/21 [History Last Taken 04/28/21] atorvastatin 40 mg PO QHS 04/28/21 [History Last Taken 04/27/21] budesonide 0.5 mg INHALATION BID 04/28/21 [History Last Taken 04/28/21] chlorthalidone 25 mg PO DAILY 04/28/21 [History Last Taken 04/28/21] clonidine HCl 0.2 mg PO BID 04/28/21 [History Last Taken 04/28/21] clopidogrel 75 mg PO DAILY 04/28/21 [History Last Taken 04/28/21] ipratropium-albuterol 3 ml INHALATION BID 04/28/21 [History Last Taken 04/28/21] isosorbide mononitrate 60 mg PO DAILY 04/28/21 [History Last Taken 04/28/21] lisinopril 30 mg PO BID 04/28/21 [History Last Taken 04/28/21] loratadine 10 mg PO DAILY 04/28/21 [History Last Taken Unknown] metoprolol tartrate 100 mg PO BID 04/28/21 [History Last Taken 04/28/21] spironolactone 25 mg PO DAILY 04/28/21 [History Last Taken 04/28/21] Humalog KwikPen Insulin See Protocol SUBCUT TID #6 ml 05/01/21 [Rx Last Taken Unknown] lidocaine HCl [Lidocaine Viscous] 15 ml PO 4X/DAY PRN PRN 5 Days ml 05/01/21 [Rx Last Taken Unknown] metformin 500 mg PO BID #90 tab 05/01/21 [Rx Last Taken Unknown] nystatin 500,000 unit PO 4X/DAY 7 Days #140 ml 05/01/21 [Rx Last Taken Unknown] Lantus Solostar U-100 Insulin 30 unit SUBCUT QHS 05/06/21 [History Last Taken Unknown] prednisone 5 mg PO DAILY 05/07/21 [History Last Taken Unknown] Allergy/AdvReac Type Severity Reaction Status Date / Time amoxicillin trihydrate Allergy Rash Verified 05/06/21 16:17 [From Augmentin] potassium clavulanate Allergy Rash Verified 05/06/21 16:17 [From Augmentin] codeine AdvReac Nausea Verified 05/06/21 16:17 Family History Sister Myocardial infarction, Onset Age: 41 Diabetes Mother COPD (chronic obstructive pulmonary disease) Asthma Rheumatoid arthritis CVA (cerebral vascular accident) Hypertension Grandmother Diabetes Surgical History History of appendectomy History of coronary artery stent placement (11/22/20) History of hernia repair (2008) History of neck surgery History of umbilical hernia repair (1971) Social History Smoking Status: Current every day smoker tobacco type: cigarettes Tobacco: How many years used: 20 Electronic Cigarette Use: not used second hand exposure: Yes alcohol intake: current alcohol intake frequency: 0-2 drinks per day Alcohol type: beer substance use type: does not use caffeine: Yes Type: carbonated beverages Number of servings: 2 and tea Number of servings: 6 what type of physical activity do you participate in: none ROS Constitutional Constitutional: Denies chills, fatigue or fever(s) Eyes Eyes: Denies blurry vision or change in vision ENT HEENT: Denies dizziness, dysphagia, epistaxis or headache(s) Cardiovascular Cardiovascular: Denies chest pain, dizziness or dyspnea Respiratory/Chest Respiratory/Chest: Denies chest tightness, cough or dyspnea Gastrointestinal Gastrointestinal: Denies abdominal pain, nausea or vomiting Genitourinary Genitourinary: Denies difficulty urinating Musculoskeletal Musculoskeletal: Denies arthralgias or back pain Integumentary Integumentary: Denies lesions, rash or skin ulcer Neurologic Neurologic: Denies abnormal gait Psychiatric Psychiatric: Denies anxiety or depression Endocrine Endocrinology: Denies fatigue Hematologic/Lymphatic Hematologic/Lymphatic: Denies easy bleeding or easy bruising Physical Exam Const alert, oriented x3 and no apparent distress General Appearance: cooperative HEENT normocephalic, head/scalp atraumatic and moist oral mucous membranes Eyes PERRL, EOMs intact bilaterally and conjunctivae normal Neck supple General: trachea midline Lymph Lymphatic: no lymphadenopathy noted Resp normal respiratory effort Effort and Inspection: able to speak in complete sentences Auscultation: clear to auscultation bilaterally; Negative for rales, rhonchi or wheezes Cardio regular rate and regular rhythm GI normal to inspection, nondistended, normoactive bowel sounds Extremity no clubbing, cyanosis or edema Skin no rashes or lesions noted Neuro oriented x3, CN's II-XII intact bilaterally, moves all extremities and no focal motor deficits Psych cooperative and affect normal Lab / Micro Data Result Diagrams: 05/07/21 06:49 05/07/21 06:49 Labs: Laboratory Results - last 24 hr 05/06/21 05/06/21 05/06/21 17:15 17:15 17:15 WBC 19.1 H RBC 4.40 L Hgb 13.2 Hct 39.3 L MCV 89.3 MCH 30.0 MCHC 33.6 RDW Std Deviation 41.8 RDW Coeff of Narcisa 12.9 Plt Count 366 MPV 10.1 Immature Gran % (Auto) CONTACT [employer]ASHING PUNCHER Neut % (Auto) CONTA[employer] P[employer] Lymph % (Auto) CONTACT [employer] FLASHING PUNCHER Sully % (Auto) CONTACT [employer] FLASHING P[employer]CHER Eos % (Auto) CONTA[employer] FL[employer]ING P[employer]CHER Baso % (Auto) CONTA[employer] FL[employer]ING P[employer]CHER Absolute Neuts (auto) 15.9 H Absolute Lymphs (auto) 2.10 Total Counted 100 Neutrophils % (Manual) 83 H Lymphocytes % (Manual) 11 L Monocytes % (Manual) 5 Eosinophils % (Manual) 1 Nucleated RBC % [employer]CH[employer] Diff Path Review May foll Platelet Estimate ADEQUATE RBC Morphology NORM C+C PT 12.1 INR 1.0 APTT < 20.0 L Sodium 136 Potassium 4.3 Chloride 101 Carbon Dioxide 30.0 Anion Gap 5 BUN 23 H Creatinine 1.20 Estim Creat Clear Calc 74.46 Est GFR (MDRD) Af Amer 83 Est GFR (MDRD) Non-Af 68 BUN/Creatinine Ratio 19.2 Glucose 273 H Lactic Acid Calcium 9.8 Total Bilirubin 0.20 AST 20 ALT 56 Alkaline Phosphatase 81 Total Protein 6.5 Albumin 3.0 L Globulin 3.5 Albumin/Globulin Ratio 0.9 Urine Color Urine Clarity Urine pH Ur Specific [place] Urine Protein Urine Glucose (UA) Urine Ketones Urine Occult Blood Urine Nitrite Urine Bilirubin Urine Urobilinogen Ur Leukocyte Esterase Urine RBC Urine WBC Ur Squamous Epith Cells Urine Bacteria Urine Mucus POC Glucose 05/06/21 05/06/21 05/06/21 17:15 18:05 21:45 WBC RBC Hgb Hct MCV MCH MCHC RDW Std Deviation RDW Coeff of Narcisa Plt Count MPV Immature Gran % (Auto) Neut % (Auto) Lymph % (Auto) Sully % (Auto) Eos % (Auto) Baso % (Auto) Absolute Neuts (auto) Absolute Lymphs (auto) Total Counted Neutrophils % (Manual) Lymphocytes % (Manual) Monocytes % (Manual) Eosinophils % (Manual) Nucleated RBC % Diff Path Review Platelet Estimate RBC Morphology PT INR APTT Sodium Potassium Chloride Carbon Dioxide Anion Gap BUN Creatinine Estim Creat Clear Calc Est GFR (MDRD) Af Amer Est GFR (MDRD) Non-Af BUN/Creatinine Ratio Glucose Lactic Acid 2.7 H* 1.8 Calcium Total Bilirubin AST ALT Alkaline Phosphatase Total Protein Albumin Globulin Albumin/Globulin Ratio Urine Color Yellow Urine Clarity Clear Urine pH 5.0 Ur Specific [place] 1.025 Urine Protein 15 H Urine Glucose (UA) 1000 H Urine Ketones 5 H Urine Occult Blood Negative Urine Nitrite Negative Urine Bilirubin Negative Urine Urobilinogen Normal Ur Leukocyte Esterase Negative Urine RBC 0 SEEN Urine WBC 0 SEEN Ur Squamous Epith Cells 0 SEEN Urine Bacteria 0 SEEN Urine Mucus 0 SEEN POC Glucose 05/07/21 00:14 WBC RBC Hgb Hct MCV MCH MCHC RDW Std Deviation RDW Coeff of Narcisa Plt Count MPV Immature Gran % (Auto) Neut % (Auto) Lymph % (Auto) Sully % (Auto) Eos % (Auto) Baso % (Auto) Absolute Neuts (auto) Absolute Lymphs (auto) Total Counted Neutrophils % (Manual) Lymphocytes % (Manual) Monocytes % (Manual) Eosinophils % (Manual) Nucleated RBC % Diff Path Review Platelet Estimate RBC Morphology PT INR APTT Sodium Potassium Chloride Carbon Dioxide Anion Gap BUN Creatinine Estim Creat Clear Calc Est GFR (MDRD) Af Amer Est GFR (MDRD) Non-Af BUN/Creatinine Ratio Glucose Lactic Acid Calcium Total Bilirubin AST ALT Alkaline Phosphatase Total Protein Albumin Globulin Albumin/Globulin Ratio Urine Color Urine Clarity Urine pH Ur Specific [place] Urine Protein Urine Glucose (UA) Urine Ketones Urine Occult Blood Urine Nitrite Urine Bilirubin Urine Urobilinogen Ur Leukocyte Esterase Urine RBC Urine WBC Ur Squamous Epith Cells Urine Bacteria Urine Mucus POC Glucose 302 H Radiology Impression Chest X-Ray 05/06/21 17:34 IMPRESSION: Normal x-ray examination of the chest. Electronically Signed: Kj Brown MD at 17:54 EDT , Service support , Charges/Coding Visit Charges Inpatient E&M: 33920 Init Hosp L3
[2021-05-07 06:58] LABS: Absolute Lymphocyte Count 4.12 X10^3/uL (0.83-4.51); Absolute Neutrophil Count 11.3 X10^3/uL (2.0-7.7); Basophil# 0.11 X10^3/uL; Basophil% 0.6 % (0-1); Eosinophil# 0.18 X10^3/uL; Hematocrit 36.2 % (40-54); Hemoglobin 12.1 g/dL (13.0-16.5); Lymphocyte # 4.12 X10^3/ul (0.83-4.51); Lymphocyte % 22.9 % (19-41); Mean Corp Hgb Conc 33.4 g/dL (32-36); Mean Corpuscular Hgb 29.6 pg (27.0-32.0); Mean Corpuscular Volume 88.5 fL (80-94); Mean Platelet Vol. 9.9 fl (6.2-12.0); Monocyte# 1.43 X10^3/uL; NRBC Flagged by Analyzer 0 % (0-5); Neutrophil # 11.27 X10^3/uL (2.7-7.7); Neutrophil % 62.7 % (47-70); POSITIVE MORPHOLOGY YES; Platelet Count 292 K/mm3 (150-450); RBC Distribution Width CV 13.1 % (11.6-14.6); RBC Distribution Width SD 42.3 fl (35.1-43.9); Red Blood Count 4.09 M/mm3 (4.6-6.2)
[2021-05-07 07:05] LABS: Differential Indicated SCAN CRITERIA MET
[2021-05-07 07:10] LABS: Bedside Glucose 173 mg/dL (70-110)
[2021-05-07 07:16] LABS: ALB/GLOB Ratio 0.9 RATIO (0.9-2.4); AST(SGOT) 12 U/L (15-37); Alanine Aminotransfer ALT/SGPT 45 U/L (16-61); Albumin, Serum 2.8 g/dL (3.2-5.0); Alkaline Phosphatase 73 U/L (45-117); Anion Gap 3 (5-15); BUN 19 mg/dL (7-18); BUN/Creat Ratio 20.7 RATIO (10-20); Calcium,Total 9.1 mg/dL (8.5-10.1); Chloride 104 mmol/L (98-107); Creatinine, Serum 0.92 mg/dL (0.70-1.30); EST Glomerular Filtration Rate 93 mL/min (>60); Est Glom Filt Rate - Afr Amer 113 mL/min (>60); Estimated Creatinine Clearance 97.13 ml/min; Globulin 3.2 g/dL (2.2-4.2); Glucose 190 mg/dL (74-106); Potassium 3.5 mmol/L (3.5-5.1); Sodium Level 137 mmol/L (136-145)
[2021-05-07] MEDS: Ipratropium/Albuterol Sulfate 3 ML AMPUL.NEB INHALATION (07:34)
[2021-05-07] MEDS: Budesonide Respules 0.5 MG/2 ML AMPUL.NEB. INHALATION (07:34)
--- NOTE | 2021-05-07 08:11 | PCM.DC ---
Discharge Instructions Diet Discharge Diet: Low fat / Low cholesterol, 1800 Calorie Control Diet and 2000 mg Sodium Diet Activity Discharge Activity: Return to Normal Activity Weight Bearing Status: Weight bearing as tolerated Dressing / Incision Call your doctor if you observe: Fever of 101 or Higher, Coldness, Increased Pain, Numbness or Tingling, Change in Color, Inability to urinate, Inability to have a bowel movement, Shortness of breath, Dizziness, Fainting spells, Swelling in the ankles, Chest pain, Prolonged hiccupping, Increased palpitations (irregular heartbeat), Calf discomfort and Uncontrolled pain Follow Up Care Test Results: Test results from this visit will be discussed in further detail at your follow-up appointment, if applicable. Discharge Plan Admission Admit Date/Time: 05/06/21 20:01 Primary Reason for Your Visit: Leukocytosis from steroid Attending Provider: Nasim Leblanc Primary Care Provider: Sivan Bowie Consulting Providers: Anson Ly Instructions Patient Instructions: ED Chest Pain, Noncardiac Discharge Orders/Prescriptions Prescriptions: Continued aspirin 81 MG tablet,chewable 81 mg PO DAILY Qty: 90 RF: 0 ipratropium-albuterol 0.5 mg-3 mg(2.5 mg base)/3 mL solution for nebulization 3 ml inhalation BID RF: 0 chlorthalidone 25 mg tablet 25 mg PO DAILY RF: 0 spironolactone 25 mg tablet 25 mg PO DAILY RF: 0 budesonide 0.5 mg/2 mL suspension for nebulization 0.5 mg inhalation BID RF: 0 clonidine HCl 0.2 mg tablet 0.2 mg PO BID RF: 0 albuterol sulfate 90 mcg/actuation HFA aerosol inhaler 2 puff INHALATION Q4H PRN PRN (Reason: Wheezing) RF: 0 Trelegy Ellipta 100-62.5-25 mcg Blister With Device 1 inh INHALATION DAILY RF: 0 lisinopril 30 mg tablet 30 mg PO BID RF: 0 atorvastatin 40 mg tablet 40 mg PO QHS RF: 0 metoprolol tartrate 100 mg tablet 100 mg PO BID RF: 0 clopidogrel 75 mg tablet 75 mg PO DAILY RF: 0 isosorbide mononitrate 60 mg tablet extended release 24 hr 60 mg PO DAILY RF: 0 amlodipine 10 mg tablet 10 mg PO DAILY RF: 0 loratadine 10 mg tablet 10 mg PO DAILY RF: 0 nystatin 100,000 unit/mL Suspension 500,000 unit PO 4X/DAY 7 Days Qty: 140 RF: 0 lidocaine HCl [Lidocaine Viscous] 2 % Solution 15 ml PO 4X/DAY PRN PRN (Reason: Mouth sores, pain) 5 Days RF: 0 metformin 500 mg tablet 500 mg PO BID Qty: 90 RF: 0 Humalog KwikPen Insulin 200 unit/mL (3 mL) insulin pen See Protocol unit subcut TID Qty: 6 RF: 0 Lantus Solostar U-100 Insulin 100 unit/mL (3 mL) insulin pen 30 unit subcut QHS RF: 0 prednisone 5 mg Tablet 5 mg PO DAILY RF: 0 Discontinued levofloxacin 750 mg tablet 750 mg PO DAILY Qty: 7 RF: 0 Referrals / Follow Up: Sivan Bowie MD [Primary Care Provider] - Within 2 Weeks (Leukocytosis due to steroids. Follow-up CBC in 4 weeks with PCP) Anupam Zuleta MD [STAFF PHYSICIAN] - Within 2 Weeks (Completed steroid for asthma exacerbation) Disposition Disposition (needs filled in before D/C Order can be placed): Home, self care
--- NOTE | 2021-05-07 08:17 | PCM.DC.SUM ---
Providers Date of Admission: 05/06/21 Primary Care Physician: Dr. Sivan Bowie MD Consultations 05/06/21 23:27 Consult: Nanoelectronics Engineer / Pulmonary Medicine Routine Consulting Provider: Anson Ly Reason for Consult: Bacteremia EMERGENT Consult: No MD Notified: Yes Date Notified: 05/06/21 Time Notified: 07:32 Method of Notification: Verbal Reason For Visit: SEVERE SEPSIS FROM BACTEREMIA Diagnosis Discharge Diagnosis (1) Severe sepsis: Status: Acute Code(s): A41.9 - Sepsis, unspecified organism; R65.20 - Severe sepsis without septic shock Medications at Discharge Home Medications aspirin 81 mg PO DAILY #90 tab.chew 12/12/16 Trelegy Ellipta 1 inh INHALATION DAILY 04/28/21 albuterol sulfate 2 puff INHALATION Q4H PRN PRN 04/28/21 amlodipine 10 mg PO DAILY 04/28/21 atorvastatin 40 mg PO QHS 04/28/21 budesonide 0.5 mg INHALATION BID 04/28/21 chlorthalidone 25 mg PO DAILY 04/28/21 clonidine HCl 0.2 mg PO BID 04/28/21 clopidogrel 75 mg PO DAILY 04/28/21 ipratropium-albuterol 3 ml INHALATION BID 04/28/21 isosorbide mononitrate 60 mg PO DAILY 04/28/21 lisinopril 30 mg PO BID 04/28/21 loratadine 10 mg PO DAILY 04/28/21 metoprolol tartrate 100 mg PO BID 04/28/21 spironolactone 25 mg PO DAILY 04/28/21 Humalog KwikPen Insulin See Protocol SUBCUT TID #6 ml 05/01/21 lidocaine HCl [Lidocaine Viscous] 15 ml PO 4X/DAY PRN PRN 5 Days ml 05/01/21 metformin 500 mg PO BID #90 tab 05/01/21 nystatin 500,000 unit PO 4X/DAY 7 Days #140 ml 05/01/21 Lantus Solostar U-100 Insulin 30 unit SUBCUT QHS 05/06/21 prednisone 5 mg PO DAILY 05/07/21 Hospital Course Summary of Care Provided Hospital Course: This is a 50-year-old with recent admission for [facility] with pneumonia and was found to Pseudomonas on sputum culture and started on Levaquin after discussion with ID pre sales technical consultant. Even though it showed in vitro resistant to Levaquin but patient clinically improved therefore continued. Patient had CBC shows leukocytosis was seen by PCP in ER. Prior to that he was started on high-dose of prednisone for possible asthma/COPD exacerbation. Patient does not have pneumonia symptoms including fever, tachypnea, shortness of breath or sputum production but lactic acidosis, 2.7 which repeat got better therefore, got admitted in ICU. Empirically patient was started on IV Zosyn. Patient chest x-ray reported normal and image looks normal. I talked to Dr. Magaña ID pre sales technical consultant and he states that patient does not have pneumonia symptoms chest x-ray looks normal therefore he does not need further antibiotic. Patient is supposed to complete prednisone and Levaquin today but he already got IV Zosyn during hospital course. Patient was seen by career agent and discussed. Discharge medication reconciliation done. Discharge follow-up instructions completed. Discharge process discussed with the patient and all questions were answered to patient's satisfaction. Total time spent, exact 35 minutes on discharge meds reconciliation, examination, coordination of care with nurses and ancillary staff, review of imaging and blood test and discussion with the patient on follow-up instructions Physical Exam Narrative Seen and examined Patient was admitted through ER after sent by PCP for leukocytosis. Patient also had lactic acidosis 2.7 which repeat was normal. Patient does not have symptoms of pneumonia including productive cough, tachypnea, fever or altered mental status. Patient was recently started by custom bow maker Dr. Zuleat on heavy dose of prednisone for asthma/COPD. Patient has history of heavy smoker 2 pack/day since age of 15 recently cut down to 1/2 to 1 pack/day. General: Alert, Oriented x3, Cooperative HEENT: Atraumatic, PERRLA, EOMI, Normocephalic Oral: No Gingival or Mucosal Lesions/ Ulcerations Neck: Supple, No JVD, Negative Carotid Bruits Lungs: Air entry diminished in bilateral lung bases. No crepitation/rhonchi. No tachypnea or hypoxia Cardiovascular: Regular rate, Regular Rhythm, Normal S1, Normal S2, No murmurs Abdomen: Bowel Sounds Present, Soft, Non Tender, Non-Distended : No renal angle tenderness. No suprapubic tenderness. Extremities: No edema, Capillary Refill Less than 3 Seconds Skin: No rashes, No breakdown Musculoskeletal: No Tenderness to Palpation of Joints or Extremities Neurological: Cranial nerves II-XII grossly intact, Deep Tendon Reflexes 2+/4 and Symmetrical, Neuro grossly intact Psych/Mental Status: Normal Affect, Appropriate. Weight / BMI Weight Weight: 223 lb 5.252 oz Body Mass Index (BMI) 33.0 ABG / Lab / Microbiology Data Result Diagrams: 05/07/21 06:49 05/07/21 06:49 Laboratory: Laboratory Results - last 24 hr 05/06/21 05/06/21 05/06/21 17:15 17:15 17:15 WBC 19.1 H RBC 4.40 L Hgb 13.2 Hct 39.3 L MCV 89.3 MCH 30.0 MCHC 33.6 RDW Std Deviation 41.8 RDW Coeff of Narcisa 12.9 Plt Count 366 MPV 10.1 Immature Gran % (Auto) MARBLE MASON Neut % (Auto) MARBLE MASON Lymph % (Auto) MARBLE MASON [place] % (Auto) MARBLE MASON Eos % (Auto) MARBLE MASON Baso % (Auto) MARBLE MASON Absolute Neuts (auto) 15.9 H Absolute Lymphs (auto) 2.10 Total Counted 100 Neutrophils % (Manual) 83 H Lymphocytes % (Manual) 11 L Monocytes % (Manual) 5 Eosinophils % (Manual) 1 Nucleated RBC % MARBLE MASON Diff Path Review May foll Platelet Estimate ADEQUATE RBC Morphology NORM C+C PT 12.1 INR 1.0 APTT < 20.0 L Sodium 136 Potassium 4.3 Chloride 101 Carbon Dioxide 30.0 Anion Gap 5 BUN 23 H Creatinine 1.20 Estim Creat Clear Calc 74.46 Est GFR (MDRD) Af Amer 83 Est GFR (MDRD) Non-Af 68 BUN/Creatinine Ratio 19.2 Glucose 273 H Lactic Acid Calcium 9.8 Total Bilirubin 0.20 AST 20 ALT 56 Alkaline Phosphatase 81 Total Protein 6.5 Albumin 3.0 L Globulin 3.5 Albumin/Globulin Ratio 0.9 Urine Color Urine Clarity Urine pH Ur Specific [place] Urine Protein Urine Glucose (UA) Urine Ketones Urine Occult Blood Urine Nitrite Urine Bilirubin Urine Urobilinogen Ur Leukocyte Esterase Urine RBC Urine WBC Ur Squamous Epith Cells Urine Bacteria Urine Mucus POC Glucose 05/06/21 05/06/21 05/06/21 17:15 18:05 21:45 WBC RBC Hgb Hct MCV MCH MCHC RDW Std Deviation RDW Coeff of Narcisa Plt Count MPV Immature Gran % (Auto) Neut % (Auto) Lymph % (Auto) [place] % (Auto) Eos % (Auto) Baso % (Auto) Absolute Neuts (auto) Absolute Lymphs (auto) Total Counted Neutrophils % (Manual) Lymphocytes % (Manual) Monocytes % (Manual) Eosinophils % (Manual) Nucleated RBC % Diff Path Review Platelet Estimate RBC Morphology PT INR APTT Sodium Potassium Chloride Carbon Dioxide Anion Gap BUN Creatinine Estim Creat Clear Calc Est GFR (MDRD) Af Amer Est GFR (MDRD) Non-Af BUN/Creatinine Ratio Glucose Lactic Acid 2.7 H* 1.8 Calcium Total Bilirubin AST ALT Alkaline Phosphatase Total Protein Albumin Globulin Albumin/Globulin Ratio Urine Color Yellow Urine Clarity Clear Urine pH 5.0 Ur Specific [place] 1.025 Urine Protein 15 H Urine Glucose (UA) 1000 H Urine Ketones 5 H Urine Occult Blood Negative Urine Nitrite Negative Urine Bilirubin Negative Urine Urobilinogen Normal Ur Leukocyte Esterase Negative Urine RBC 0 SEEN Urine WBC 0 SEEN Ur Squamous Epith Cells 0 SEEN Urine Bacteria 0 SEEN Urine Mucus 0 SEEN POC Glucose 05/07/21 05/07/21 05/07/21 00:14 06:49 06:49 WBC 18.0 H RBC 4.09 L Hgb 12.1 L Hct 36.2 L MCV 88.5 MCH 29.6 MCHC 33.4 RDW Std Deviation 42.3 RDW Coeff of Narcisa 13.1 Plt Count 292 MPV 9.9 Immature Gran % (Auto) 4.800 H Neut % (Auto) 62.7 Lymph % (Auto) 22.9 [place] % (Auto) 8.0 Eos % (Auto) 1.0 Baso % (Auto) 0.6 Absolute Neuts (auto) 11.3 H Absolute Lymphs (auto) 4.12 Total Counted Neutrophils % (Manual) Lymphocytes % (Manual) Monocytes % (Manual) Eosinophils % (Manual) Nucleated RBC % 0 Diff Path Review Platelet Estimate RBC Morphology PT INR APTT Sodium 137 Potassium 3.5 Chloride 104 Carbon Dioxide 30.0 Anion Gap 3 L BUN 19 H Creatinine 0.92 Estim Creat Clear Calc 97.13 Est GFR (MDRD) Af Amer 113 Est GFR (MDRD) Non-Af 93 BUN/Creatinine Ratio 20.7 H Glucose 190 H Lactic Acid Calcium 9.1 Total Bilirubin 0.30 AST 12 L ALT 45 Alkaline Phosphatase 73 Total Protein 6.0 L Albumin 2.8 L Globulin 3.2 Albumin/Globulin Ratio 0.9 Urine Color Urine Clarity Urine pH Ur Specific [place] Urine Protein Urine Glucose (UA) Urine Ketones Urine Occult Blood Urine Nitrite Urine Bilirubin Urine Urobilinogen Ur Leukocyte Esterase Urine RBC Urine WBC Ur Squamous Epith Cells Urine Bacteria Urine Mucus POC Glucose 302 H 05/07/21 07:03 WBC RBC Hgb Hct MCV MCH MCHC RDW Std Deviation RDW Coeff of Narcisa Plt Count MPV Immature Gran % (Auto) Neut % (Auto) Lymph % (Auto) [place] % (Auto) Eos % (Auto) Baso % (Auto) Absolute Neuts (auto) Absolute Lymphs (auto) Total Counted Neutrophils % (Manual) Lymphocytes % (Manual) Monocytes % (Manual) Eosinophils % (Manual) Nucleated RBC % Diff Path Review Platelet Estimate RBC Morphology PT INR APTT Sodium Potassium Chloride Carbon Dioxide Anion Gap BUN Creatinine Estim Creat Clear Calc Est GFR (MDRD) Af Amer Est GFR (MDRD) Non-Af BUN/Creatinine Ratio Glucose Lactic Acid Calcium Total Bilirubin AST ALT Alkaline Phosphatase Total Protein Albumin Globulin Albumin/Globulin Ratio Urine Color Urine Clarity Urine pH Ur Specific [place] Urine Protein Urine Glucose (UA) Urine Ketones Urine Occult Blood Urine Nitrite Urine Bilirubin Urine Urobilinogen Ur Leukocyte Esterase Urine RBC Urine WBC Ur Squamous Epith Cells Urine Bacteria Urine Mucus POC Glucose 173 H Radiography Diagnostic Testing: Radiology Impression Chest X-Ray 05/06/21 17:34 IMPRESSION: Normal x-ray examination of the chest. Electronically Signed: Kj Brown MD at 17:54 EDT , Service support , D/C Instructions Discharge Diet: Low fat / Low cholesterol, 1800 Calorie Control Diet and 2000 mg Sodium Diet Weight Bearing Status: Weight bearing as tolerated Call your doctor if you observe: Fever of 101 or Higher, Coldness, Increased Pain, Numbness or Tingling, Change in Color, Inability to urinate, Inability to have a bowel movement, Shortness of breath, Dizziness, Fainting spells, Swelling in the ankles, Chest pain, Prolonged hiccupping, Increased palpitations (irregular heartbeat), Calf discomfort and Uncontrolled pain Meaningful Use Info Meaningful Use Diagnoses (Choose all that apply): None applicable Discharge Plan Admission Admit Date/Time: 05/06/21 20:01 Primary Reason for Your Visit: Leukocytosis from steroid Attending Provider: Nasim Leblanc Primary Care Provider: Sivan Bowie Consulting Providers: Anson Ly Instructions Patient Instructions: ED Chest Pain, Noncardiac Discharge Orders/Prescriptions Prescriptions: Continued aspirin 81 MG tablet,chewable 81 mg PO DAILY Qty: 90 RF: 0 ipratropium-albuterol 0.5 mg-3 mg(2.5 mg base)/3 mL solution for nebulization 3 ml inhalation BID RF: 0 chlorthalidone 25 mg tablet 25 mg PO DAILY RF: 0 spironolactone 25 mg tablet 25 mg PO DAILY RF: 0 budesonide 0.5 mg/2 mL suspension for nebulization 0.5 mg inhalation BID RF: 0 clonidine HCl 0.2 mg tablet 0.2 mg PO BID RF: 0 albuterol sulfate 90 mcg/actuation HFA aerosol inhaler 2 puff INHALATION Q4H PRN PRN (Reason: Wheezing) RF: 0 Trelegy Ellipta 100-62.5-25 mcg Blister With Device 1 inh INHALATION DAILY RF: 0 lisinopril 30 mg tablet 30 mg PO BID RF: 0 atorvastatin 40 mg tablet 40 mg PO QHS RF: 0 metoprolol tartrate 100 mg tablet 100 mg PO BID RF: 0 clopidogrel 75 mg tablet 75 mg PO DAILY RF: 0 isosorbide mononitrate 60 mg tablet extended release 24 hr 60 mg PO DAILY RF: 0 amlodipine 10 mg tablet 10 mg PO DAILY RF: 0 loratadine 10 mg tablet 10 mg PO DAILY RF: 0 nystatin 100,000 unit/mL Suspension 500,000 unit PO 4X/DAY 7 Days Qty: 140 RF: 0 lidocaine HCl [Lidocaine Viscous] 2 % Solution 15 ml PO 4X/DAY PRN PRN (Reason: Mouth sores, pain) 5 Days RF: 0 metformin 500 mg tablet 500 mg PO BID Qty: 90 RF: 0 Humalog KwikPen Insulin 200 unit/mL (3 mL) insulin pen See Protocol unit subcut TID Qty: 6 RF: 0 Lantus Solostar U-100 Insulin 100 unit/mL (3 mL) insulin pen 30 unit subcut QHS RF: 0 prednisone 5 mg Tablet 5 mg PO DAILY RF: 0 Discontinued levofloxacin 750 mg tablet 750 mg PO DAILY Qty: 7 RF: 0 Referrals / Follow Up: Sivan Bowie MD [Primary Care Provider] - Within 2 Weeks (Leukocytosis due to steroids. Follow-up CBC in 4 weeks with PCP) Anupam Zuleta MD [STAFF PHYSICIAN] - Within 2 Weeks (Completed steroid for asthma exacerbation) Disposition Disposition (needs filled in before D/C Order can be placed): Home, self care Charges/Coding Visit Charges Inpatient E&M: 27026 Disch Hosp
[2021-05-07] MEDS: Insulin Lispro 100 UNIT/ML INSULN.PEN SC (08:39)
[2021-05-07] MEDS: Insulin Lispro 100 UNIT/ML INSULN.PEN 8 UNIT SC (08:40)
[2021-05-07] MEDS: cloNIDine HCl 0.2 MG Tablet PO (08:47)
[2021-05-07] MEDS: Aspirin 81 MG TAB.CHEW PO (08:47)
[2021-05-07] MEDS: Lisinopril 10 MG Tablet 30 MG PO (08:47)
[2021-05-07] MEDS: Chlorthalidone 50 MG Tablet 25 MG PO (08:47)
[2021-05-07] MEDS: Clopidogrel Bisulfate 75 MG Tablet PO (08:47)
[2021-05-07] MEDS: Loratadine 10 MG Tablet PO (08:47)
[2021-05-07] MEDS: Spironolactone 25 MG Tablet PO (08:47)
--- NOTE | 2021-05-07 10:57 | CASEMGMT ---
RN CM NOTE: Pt discharged prior to RN CM being able to meet with him to discuss any discharge planning needs/questions/concerns. José Miguel GUON RN CM
[2021-05-09 12:39] LABS: Pathologist Review Reviewed
--- NOTE | 2021-05-09 16:04 | CASEMGMT ---
VETO LUBIN Discharge Follow-up Phone Call: CARMEN: Jessika Strata: 3 Call Date: 05/09/21 Discharge Date: 05/07/21 Time of Call: 1604 Duration: 1 min Admitting Diagnosis: Severe Sepsis from bacteremia VETO LUBIN completed follow-up phone call after recent hospitalization. Patient states he is doing well. Patient had no questions or concerns regarding discharge instructions. Patient is currently at Dr. Zuleta's office. Patient to schedule follow-up with PCP. Patient had no further questions or concerns at this time.
== END 2021-05-07 09:15 | disposition home or self-care (01) | DRG 816 ==
LOC: ED 19:43 → ICU 21:13
PROVIDERS: Admitting Provider Hospitalist; Emergency Provider Emergency Medicine; PCP Internal Medicine; Visit Provider Internal Medicine
DX: D72.829 Elevated white blood cell count, unspecified (principal); Z79.52 Long term (current) use of systemic steroids; J44.9 Chronic obstructive pulmonary disease, unspecified; E11.65 Type 2 diabetes mellitus with hyperglycemia; E66.9 Obesity, unspecified; E78.5 Hyperlipidemia, unspecified; F17.210 Nicotine dependence, cigarettes, uncomplicated; I10 Essential (primary) hypertension; I25.10 Atherosclerotic heart disease of native coronary artery without angina pectoris; I25.2 Old myocardial infarction; I25.5 Ischemic cardiomyopathy; M06.9 Rheumatoid arthritis, unspecified; Z68.33 Body mass index [BMI] 33.0-33.9, adult; Z87.01 Personal history of pneumonia (recurrent); Z86.73 Personal history of transient ischemic attack (TIA), and cerebral infarction without residual deficits; Z95.5 Presence of coronary angioplasty implant and graft; Z79.4 Long term (current) use of insulin; Z79.02 Long term (current) use of antithrombotics/antiplatelets; Z79.82 Long term (current) use of aspirin; Z79.899 Other long term (current) drug therapy
CPT/HCPCS: 71045; 80053; 81001; 82962; 83605; 85025; 85610; 85730; 87040; 87086; 93005; 94640; 99285; J7030; A4216

== ENCOUNTER → 2021-08-15 07:00 | Outpatient (CLI) | payer OTHER, SELFPAY ==
[2021-06-01 14:28] VITALS: BMI 35.6
--- NOTE | 2021-08-15 11:12 | STRESSREP ---
Stress Test Report Pharmacologic myocardial perfusion stress test. 50-year-old man with a history of chest pain non-ST elevation myocardial infarction. Resting EKG demonstrates normal sinus rhythm with a rate of 68 bpm T wave inversions noted in lead III and aVF. Resting blood pressure is 138/98 mmHg. 0.4 mg of regadenoson was infused per usual protocol followed by rapid intravenous saline flush injection continuous EKG monitoring was performed. Patient maintained sinus rhythm throughout the recording. The maximum heart rate attained was 100 bpm which was 58% of maximum predicted heart rate the maximum workload was 1 metabolic equivalent. At rest nonspecific ST changes were noted throughout the infusion and at peak infusion nonspecific ST changes were noted. The peak blood pressure was 152/100 mmHg. Myocardial perfusion protocol. 14.8 mCi of technetium 99m sestamibi was injected at rest. 0.4 mg of regadenoson was infused per usual protocol. At peak infusion 44.0 mCi of technetium 99m sestamibi was injected stress images were obtained stress and rest images were reconstructed and compared in the short axis vertical long horizontal long axis. Gated images were also obtained. Perfusion SPECT analysis: Review of the stress images demonstrate normal uptake of tracer noted in all areas of the myocardium. The mid to distal anterior wall has mildly reduced perfusion on the stress and resting images to a similar extent suggestive of a previous anterior myocardial infarct. No obvious ischemia is noted. Gated SPECT analysis: The gated ejection fraction is 48% with mild anterior hypokinesis present. Conclusion: Pharmacologic myocardial perfusion stress test with no obvious ischemia noted. Mildly reduced left anterior descending artery territory perfusion. No ischemia noted. Mild cardiomyopathy present.
== END ==
PROVIDERS: PCP Internal Medicine; Referring Provider Nurse Practitioner Family; Visit Provider Nurse Practitioner Family
DX: I25.10 Atherosclerotic heart disease of native coronary artery without angina pectoris (principal); Z95.5 Presence of coronary angioplasty implant and graft; I10 Essential (primary) hypertension; E78.5 Hyperlipidemia, unspecified; F17.210 Nicotine dependence, cigarettes, uncomplicated; J44.9 Chronic obstructive pulmonary disease, unspecified; E66.9 Obesity, unspecified
CPT/HCPCS: 78452; 93017; A9500; A4216; J2785

== ENCOUNTER 2021-11-18 01:06 | Inpatient (IN) | payer OTHER, SELFPAY ==
[2021-06-01 14:28] VITALS: BMI 35.6
[2021-11-18] VITALS (32 sets, daily range): BP systolic 116–242; BP diastolic 60–139; PULSE 60–102; RESP 12–24; TEMP 36.1–37.2; O2SAT 90–98; BMI 33.5; BMI 33.6
--- NOTE | 2021-11-18 01:12 | RAD_ITS ---
STUDY: X-RAY CHEST REASON FOR EXAM: Male, 51 years old. chest pain TECHNIQUE: Single AP portable view of the chest. COMPARISON: None. FINDINGS: The lungs are clear and expanded. There is no demonstrated pleural abnormality. Normal size heart. Normal mediastinum and soniya. Normal visualized pulmonary arteries. Normal visualized aortic arch and descending thoracic aorta. Normal visualized thoracic spine. Normal visualized ribs, clavicles, and shoulders. There is no demonstrated abnormality of the visualized soft tissue structures of the upper abdomen. RAD/Chest 1 View (Portable) IMPRESSION: Normal x-ray examination of the chest. Electronically Signed: Danya Osborn MD at 1:35 EST Tel , Service support ,
--- NOTE | 2021-11-18 01:12 | EKG12_ITS ---
Test Reason : CP Blood Pressure : / mmHG Vent. Rate : 098 BPM Atrial Rate : 098 BPM P-R Int : 168 ms QRS Dur : 102 ms QT Int : 348 ms P-R-T Axes : 067 -17 -17 degrees QTc Int : 444 ms Normal sinus rhythm Anterior infarct , possibly acute Lateral injury pattern ACUTE TN / STEMI Abnormal ECG Confirmed by BIRGIT EVANGELISTA, GENE ([id number]), video editor TESS PERRY ([id number]) on 11/23/2021 10:56:22 AM Referred By: Lisa Lemos Confirmed By:GENE GENAO MD
--- NOTE | 2021-11-18 01:17 | EDS_ITS ---
HPI History of Present Illness Chief Complaint: Chest Pain Informant: patient Onset/Context/Timing Onset: Today Timing: Continuous Quality: Positive for Pressure and Sharp Location: Substernal Current Severity: Severe Maximum Severity: Severe Narrative Narrative: Patient presents with substernal chest pain that started approximate 40 minutes prior to arrival. He does have history of coronary disease with 2 prior NSTEMI's. He states he has a total of 7 cardiac stents. Chest pain started shortly prior to arrival. He does have shortness of breath with pain rating down his left arm. PFSH PFSH Medical History Asthma Atherosclerosis of [place] coronary artery of [place] heart without angina pectoris Chronic obstructive pulmonary disease (COPD) Cluster headache Community acquired pneumonia COPD (chronic obstructive pulmonary disease) Diabetes Essential hypertension Headache History of non-ST elevation myocardial infarction (NSTEMI) (11/22/20) Hyperlipidemia Hypertension Ischemic cardiomyopathy Migraine Myocardial infarct Nicotine dependence Non-ST elevation [place] (NSTEMI) Obesity Obesity (BMI 30.0-34.9) Smoker Home Medications aspirin 81 mg PO DAILY #90 tab.chew 12/12/16 [Rx Last Taken 04/28/21] Trelegy Ellipta 1 inh INHALATION DAILY 04/28/21 [History Last Taken 04/28/21] amlodipine 10 mg PO DAILY 04/28/21 [History Last Taken 04/28/21] atorvastatin 40 mg PO QHS 04/28/21 [History Last Taken 04/27/21] budesonide 0.5 mg INHALATION BID 04/28/21 [History Last Taken 04/28/21] chlorthalidone 25 mg PO DAILY 04/28/21 [History Last Taken 04/28/21] clonidine HCl 0.2 mg PO BID 04/28/21 [History Last Taken 04/28/21] clopidogrel 75 mg PO DAILY 04/28/21 [History Last Taken 04/28/21] isosorbide mononitrate 60 mg PO DAILY 04/28/21 [History Last Taken 04/28/21] metoprolol tartrate 100 mg PO BID 04/28/21 [History Last Taken 04/28/21] spironolactone 25 mg PO DAILY 04/28/21 [History Last Taken 04/28/21] metformin 500 mg PO BID #90 tab 05/01/21 [Rx Last Taken Unknown] insulin needles (disposable) 30 X 3/4 #1 05/25/21 [History Last Taken Unknown] lisinopril 20 mg tablet 20 mg PO BID #180 tab 05/25/21 [Rx Last Taken Unknown] BD Ultra-Fine Tomasa Pen Needle 32 gauge x 1 ea MISCELLANEOUS 4X/DAY #200 ea NS 05/27/21 [Rx Last Taken Unknown] insulin lispro 200 unit/mL (3 mL) subcutaneous pen 14 unit SUBCUT TID 90 Days #18.9 ml 06/01/21 [Rx Last Taken Unknown] fluticasone fur. 200 mcg-umeclid 62.5 mcg-vilant 25 mcg inhalat.powder 1 inh INHALATION DAILY ea 06/16/21 [History Last Taken Unknown] loratadine 10 mg tablet 10 mg PO DAILY #90 tab 07/04/21 [Rx Last Taken Unknown] insulin degludec 200 unit/mL (3 mL) subcutaneous pen 50 unit SUBCUT QHS #9 ml 10/06/21 [Rx Last Taken Unknown] albuterol sulfate [ProAir RespiClick] 2 inh INHALATION PRN PRN 11/18/21 [History Last Taken Unknown] Allergy/AdvReac Type Severity Reaction Status Date / Time amoxicillin trihydrate Allergy Rash Verified 10/06/21 15:56 [From Augmentin] potassium clavulanate Allergy Rash Verified 10/06/21 15:56 [From Augmentin] codeine AdvReac Nausea Verified 10/06/21 15:56 Family History Sister Myocardial infarction, Onset Age: 41 Diabetes Mother COPD (chronic obstructive pulmonary disease) Asthma Rheumatoid arthritis CVA (cerebral vascular accident) Hypertension Grandmother Diabetes Surgical History History of appendectomy History of coronary artery stent placement (11/22/20) History of hernia repair (2008) History of neck surgery History of umbilical hernia repair (1971) Social History Smoking Status: Current every day smoker tobacco type: cigarettes Tobacco: How many years used: 20 Electronic Cigarette Use: not used second hand exposure: Yes alcohol intake: current alcohol intake frequency: 0-2 drinks per day Alcohol type: beer substance use type: does not use caffeine: Yes Type: carbonated beverages Number of servings: 2 and tea Number of servings: 6 what type of physical activity do you participate in: none ROS ROS ED Constitutional Constitutional ED: Denies chills or fever(s) Eyes Eyes: Denies change in vision ENT ENT ED: Denies sore throat Cardiovascular Cardiovascular: Reports chest pain Respiratory/Chest Respiratory/Chest: Reports dyspnea; Denies cough Gastrointestinal Gastrointestinal: Denies abdominal pain, diarrhea, nausea or vomiting Musculoskeletal Musculoskeletal: Denies back pain Integumentary Denies rash Allergic/Immunologic Allergic/Immunologic ED: Denies urticaria EXAM Physical Exam Const Vital Signs: 11/18/21 01:06 11/18/21 01:31 Temperature 97.0 F L Temperature Source Temporal Pulse Rate 102 H Respiratory Rate 24 H Blood Pressure 242/139 H Blood Pressure Mean 173 Pulse Ox 97 Oxygen Delivery Method Nasal Cannula Nasal Cannula Oxygen Flow Rate (L/min) 2 3 Positive well nourished and well developed General Appearance ED: well developed HEENT normocephalic and atraumatic Eyes PERRL and EOMs intact bilaterally Neck supple Chest Wall inspection of chest normal and palpation of chest normal Resp normal respiratory effort Effort and Inspection: respiratory distress Cardio regular rate and regular rhythm GI soft to palpation and non-tender Extremity normal to inspection Neuro oriented x3 Sensorium / Orientation: awake and alert Motor Exam: strength 5/5 throughout Psych mental status grossly normal Skin no rashes or lesions noted MDM MDM Lab Data Labs: Laboratory Results - last 24 hr 11/18/21 11/18/21 11/18/21 01:18 01:18 01:18 WBC 14.6 H RBC 5.13 Hgb 15.1 Hct 45.6 MCV 88.9 MCH 29.4 MCHC 33.1 RDW Std Deviation 48.7 H RDW Coeff of Narcisa 14.9 H Plt Count 340 MPV 10.0 Immature Gran % (Auto) 0.600 Neut % (Auto) 64.1 Lymph % (Auto) 21.9 [place] % (Auto) 10.7 H Eos % (Auto) 2.3 Baso % (Auto) 0.4 Absolute Neuts (auto) 9.4 H Absolute Lymphs (auto) 3.20 Nucleated RBC % 0 PT 11.6 L INR 0.9 APTT 26.0 Sodium 141 Potassium 3.5 Chloride 107 Carbon Dioxide 29.0 Anion Gap 5 BUN 21 H Creatinine 0.92 Estim Creat Clear Calc 92.93 Est GFR (MDRD) Af Amer 111 Est GFR (MDRD) Non-Af 92 BUN/Creatinine Ratio 22.7 H Glucose 131 H Calcium 9.3 Troponin I High Sens 76 Radiography Chest X-Ray - ED: 1 View, Read by ED Physician and Chronic Changes Diagnostic Testing: Clinical Impression(s) from Imaging Studies Chest X-Ray 11/18/21 01:12 IMPRESSION: Normal x-ray examination of the chest. Electronically Signed: Danya Osborn MD at 1:35 EST Tel , Service support , EKG Initial EKG: Attestation: I personally reviewed and interpreted this EKG as follows: Interpretation: Sinus Rhythm (Sinus at [address] elevation and reciprocal ST depression in the inferior leads.) Treatment and Re-Evaluation Comments:: Patient was given aspirin and heparin. I spoke with the tractor trailer driver on-call as the patient is currently on Plavix. She does want Brilinta given also. He is ordered morphine and Zofran for pain. STEMI team in route for the Medical Insurance Claims Processor. Critical Care Time Critical Care Time: Yes Critical care time (excluding procedures): 30-74 minutes (30 minutes), Including time spent:, Discussing w/Patient &/or Family/Shaker Screen Operator, Discussing w/Consulta nts, Arranging Admission or Transfer and Performing Direct Patient Care at Bedside Discharge Plan Triage Chief Complaint: Chest Pain ED Provider: Batsheva Ray Dx/Rx/DC Orders Clinical Impression: ST elevation (STEMI) myocardial infarction Primary Care Provider: Sivan Bowie Disposition Disposition: Acute Care Hospital [facility]
[2021-11-18 01:27] LABS: Absolute Neutrophil Count 9.4 X10^3/uL (2.0-7.7); Basophil# 0.06 X10^3/uL; Basophil% 0.4 % (0-1); Eosinophil# 0.33 X10^3/uL; Eosinophils% 2.3 % (0-5); Hematocrit 45.6 % (40-54); Hemoglobin 15.1 g/dL (13.0-16.5); Lymphocyte % 21.9 % (19-41); Mean Corp Hgb Conc 33.1 g/dL (32-36); Mean Corpuscular Hgb 29.4 pg (27.0-32.0); Mean Corpuscular Volume 88.9 fL (80-94); Monocyte# 1.56 X10^3/uL; Monocyte% 10.7 % (0-10); NRBC Flagged by Analyzer 0 % (0-5); Neutrophil # 9.37 X10^3/uL (2.7-7.7); Neutrophil % 64.1 % (47-70); POSITIVE DIFFERENTIAL YES; Platelet Count 340 K/mm3 (150-450); RBC Distribution Width CV 14.9 % (11.6-14.6); RBC Distribution Width SD 48.7 fl (35.1-43.9); Red Blood Count 5.13 M/mm3 (4.6-6.2); White Blood Count 14.6 K/mm3 (4.4-11.0)
[2021-11-18] MEDS: morphine 8 MG/ML Syringe 6 MG IV (01:27)
[2021-11-18] MEDS: Ondansetron 4 MG/2 ML Vial IV (01:27)
[2021-11-18] MEDS: Aspirin 81 MG TAB.CHEW 324 MG PO (01:30)
[2021-11-18] MEDS: TICAGRELOR 90 MG TABLET 180 MG PO (01:30)
[2021-11-18 01:34] LABS: Differential Indicated SCAN CRITERIA MET
[2021-11-18] MEDS: Heparin Injection (Vial) 5,000 UNIT/ML VIAL 4000 UNIT IV (01:36)
[2021-11-18 01:39] LABS: International Normalized Ratio 0.9; Prothrombin Time (Protime)PT. 11.6 SECONDS (11.7-14.9)
[2021-11-18 02:05] LABS: Anion Gap 5 (5-15); BUN 21 mg/dL (7-18); BUN/Creat Ratio 22.7 RATIO (10-20); Calcium,Total 9.3 mg/dL (8.5-10.1); Chloride 107 mmol/L (98-107); Creatinine, Serum 0.92 mg/dL (0.70-1.30); EST Glomerular Filtration Rate 92 mL/min (>60); Est Glom Filt Rate - Afr Amer 111 mL/min (>60); Estimated Creatinine Clearance 92.93 ml/min; Glucose 131 mg/dL (74-106); Potassium 3.5 mmol/L (3.5-5.1); Sodium Level 141 mmol/L (136-145); Troponin-I HS 76 pg/mL (3.0-78.0)
[2021-11-18 02:16] LABS: Anisocytosis 1+
--- NOTE | 2021-11-18 03:36 | PCM.HP.STD ---
[facility] - General General Date of Admission: 11/18/21 HPI Narrative LATONYA ELDER is a 51 M who presents substernal chest pain that started approximate 40 minutes prior to arrival that woke him from sleep, at 1230 AM. He does have history of coronary disease with 2 prior NSTEMI's. He states he has a total of 7 cardiac stents. Chest pain started shortly prior to arrival. He does have shortness of breath with pain rating down his left arm and he feels nauseas. The patient had minimal improvement with therapy in ED, still complaining of 8/10 chest pain EKG showed significant STEMI with continuous ST elevations through lateral leads. His blood pressure was 204 systolic. Troponin was 76. He was evaluated by cardiology and went to Admissions Consultant. The LAD had abnormal anatomy but was shown to be occluded and stent was placed. Estimated LVEF was 50% and EDP was 15. He is a current tobacco user, does not use alcohol excessively PFSH Medical History Asthma Atherosclerosis of [place] coronary artery of [place] heart without angina pectoris Chronic obstructive pulmonary disease (COPD) Cluster headache Community acquired pneumonia COPD (chronic obstructive pulmonary disease) Diabetes Essential hypertension Headache History of non-ST elevation myocardial infarction (NSTEMI) (11/22/20) Hyperlipidemia Hypertension Ischemic cardiomyopathy Migraine Myocardial infarct Nicotine dependence Non-ST elevation NM (NSTEMI) Obesity Obesity (BMI 30.0-34.9) Smoker Home Medications aspirin 81 mg PO DAILY #90 tab.chew 12/12/16 [Rx Last Taken 04/28/21] Trelegy Ellipta 1 inh INHALATION DAILY 04/28/21 [History Last Taken 04/28/21] amlodipine 10 mg PO DAILY 04/28/21 [History Last Taken 04/28/21] budesonide 0.5 mg INHALATION BID 04/28/21 [History Last Taken 04/28/21] chlorthalidone 25 mg PO DAILY 04/28/21 [History Last Taken 04/28/21] clonidine HCl 0.2 mg PO BID 04/28/21 [History Last Taken 04/28/21] isosorbide mononitrate 60 mg PO DAILY 04/28/21 [History Last Taken 04/28/21] spironolactone 25 mg PO DAILY 04/28/21 [History Last Taken 04/28/21] metformin 500 mg PO BID #90 tab 05/01/21 [Rx Last Taken Unknown] insulin needles (disposable) 30 X 3/4 #1 05/25/21 [History Last Taken Unknown] lisinopril 20 mg tablet 20 mg PO BID #180 tab 05/25/21 [Rx Last Taken Unknown] BD Ultra-Fine Tomasa Pen Needle 32 gauge x 1 ea MISCELLANEOUS 4X/DAY #200 ea NS 05/27/21 [Rx Last Taken Unknown] insulin lispro 200 unit/mL (3 mL) subcutaneous pen 14 unit SUBCUT TID 90 Days #18.9 ml 06/01/21 [Rx Last Taken Unknown] fluticasone fur. 200 mcg-umeclid 62.5 mcg-vilant 25 mcg inhalat.powder 1 inh INHALATION DAILY ea 06/16/21 [History Last Taken Unknown] loratadine 10 mg tablet 10 mg PO DAILY #90 tab 07/04/21 [Rx Last Taken Unknown] insulin degludec 200 unit/mL (3 mL) subcutaneous pen 50 unit SUBCUT QHS #9 ml 10/06/21 [Rx Last Taken Unknown] ProAir RespiClick 2 inh INHALATION PRN PRN 11/18/21 [History Last Taken Unknown] atorvastatin 80 mg PO QHS #30 tab 11/18/21 [Rx Last Taken Unknown] metoprolol tartrate 25 mg PO BID #60 tab 11/18/21 [Rx Last Taken Unknown] ticagrelor [Brilinta] 90 mg PO BID #60 tab 11/18/21 [Rx Last Taken Unknown] Allergy/AdvReac Type Severity Reaction Status Date / Time amoxicillin trihydrate Allergy Rash Verified 10/06/21 15:56 [From Augmentin] potassium clavulanate Allergy Rash Verified 10/06/21 15:56 [From Augmentin] codeine AdvReac Nausea Verified 10/06/21 15:56 Family History Sister Myocardial infarction, Onset Age: 41 Diabetes Mother COPD (chronic obstructive pulmonary disease) Asthma Rheumatoid arthritis CVA (cerebral vascular accident) Hypertension Grandmother Diabetes Surgical History History of appendectomy History of coronary artery stent placement (11/22/20) History of hernia repair (2008) History of neck surgery History of umbilical hernia repair (1971) Social History Smoking Status: Current every day smoker tobacco type: cigarettes Tobacco: How many years used: 20 Electronic Cigarette Use: not used second hand exposure: Yes alcohol intake: current alcohol intake frequency: 0-2 drinks per day Alcohol type: beer substance use type: does not use caffeine: Yes Type: carbonated beverages Number of servings: 2 and tea Number of servings: 6 what type of physical activity do you participate in: none ROS ROS Narrative no fevers chills + for nausea/sob/CP No trouble with abdominal pain, diarrhea, constipation, hematuria, dysuria, no blood in stool No rashes, bleeding, or seizures, syncope, or falls. Vital Signs Vital Signs Vital Signs: 11/18/21 01:06 11/18/21 01:31 11/18/21 01:37 Temperature 97.0 F L Temperature Source Temporal Pulse Rate 102 H Respiratory Rate 24 H 18 Blood Pressure 242/139 H 190/107 H Blood Pressure Mean 173 Pulse Ox 97 Oxygen Delivery Method Nasal Cannula Nasal Cannula Oxygen Flow Rate (L/min) 2 3 11/18/21 02:08 Temperature 97.7 F L Temperature Source Temporal Pulse Rate 100 Respiratory Rate 18 Blood Pressure 190/107 H Blood Pressure Mean 134 Pulse Ox 97 Oxygen Delivery Method Nasal Cannula Oxygen Flow Rate (L/min) 3 Weight Weight: 220 lb 7.396 oz Body Mass Index (BMI) 33.5 Physical Exam Const alert General Appearance: cooperative HEENT normocephalic, head/scalp atraumatic and moist oral mucous membranes Eyes PERRL and EOMs intact bilaterally Resp normal respiratory effort, No no use of accessory muscles and clear to auscultation bilaterally Cardio regular rate and regular rhythm Cardio Narrative: No swelling in lower extremities. GI normal to inspection, nondistended, normoactive bowel sounds and soft to palpation Extremity normal to inspection Skin no rashes or lesions noted Neuro Sensorium / Orientation: awake and alert Psych Psych Narrative: upset, distracted Results Lab / Micro Data Result Diagrams: 11/18/21 06:56 11/18/21 04:50 Labs: Laboratory Results - last 24 hr 11/18/21 01:18: WBC 14.6 H, RBC 5.13, Hgb 15.1, Hct 45.6, MCV 88.9, MCH 29.4, MCHC 33.1, RDW Std Deviation 48.7 H, RDW Coeff of Narcisa 14.9 H, Plt Count 340, MPV 10.0, Immature Gran % (Auto) 0.600, Neut % (Auto) 64.1, Lymph % (Auto) 21.9, [place] % (Auto) 10.7 H, Eos % (Auto) 2.3, Baso % (Auto) 0.4, Absolute Neuts (auto) 9.4 H, Absolute Lymphs (auto) 3.20, Nucleated RBC % 0, Diff Path Review May foll, Anisocytosis 1+ 11/18/21 01:18: PT 11.6 L, INR 0.9, APTT 26.0 11/18/21 01:18: Sodium 141, Potassium 3.5, Chloride 107, Carbon Dioxide 29.0, Anion Gap 5, BUN 21 H, Creatinine 0.92, Estim Creat Clear Calc 92.93, Est GFR (MDRD) Af Amer 111, Est GFR (MDRD) Non-Af 92, BUN/Creatinine Ratio 22.7 H, Glucose 131 H, Calcium 9.3, Troponin I High Sens 76 Radiology Impression Chest X-Ray 11/18/21 01:12 IMPRESSION: Normal x-ray examination of the chest. Electronically Signed: Danya Osborn MD at 1:35 EST Tel , Service support , Assessment & Plan Assessment/Plan (1) ST elevation (STEMI) myocardial infarction: (2) Essential hypertension: (3) Diabetes: QUALIFIERS: Diabetes mellitus complication status: with hyperglycemia Diabetes mellitus computer terminal operator insulin use: with computer terminal operator use Diabetes mellitus type: type 2 Qualified Code(s): E11.65 - Type 2 diabetes mellitus with hyperglycemia; Z79.4 - assisted (current) use of insulin (4) Chronic obstructive pulmonary disease (COPD): QUALIFIERS: COPD type: unspecified COPD Qualified Code(s): J44.9 - Chronic obstructive pulmonary disease, unspecified PLAN: STEMI Chest Pain tobacco use - Received LAD stent upon presentation - continue Integrilin for 6 hrs s/p cath - Cardiology to remove sheath - Bedrest for 12 hrs post-cath - CBC by 6 AM to evaluate platelets and if platelets decline by more than 25% must hold Integrilin - Continue Brilinta and aspirin daily. Hold home plavix and Continue Brilanta from now on. - Needs echo 2D - monitor blood pressure - Continuous cardiac monitoring, SLN nitroglycerin for chest pain if needed - Consult for nicotine cessation, prn patches for withdrawal. - Tylenol and Zofran PRN - Albuterol PRN for sob Essential HTN - Resume home medications, Metoprolol 100 BID, Imdur, lisinopril 20 BID, clonidine 0.2 bid DM - SSI including BG checks - Resume 50 U LA insulin qhs Charges/Coding Visit Charges Inpatient E&M: 74742 Init Hosp L2
--- NOTE | 2021-11-18 03:51 | ECHOD_ITS ---
Reason For Study: s/p TN Procedure This was a 2D Doppler, Color Flow transthoracic echocardiogram. Exam performed portable in ICU/CCU. Left Ventricle Overall image quality is good. Visually estimated left ventricular ejection fraction is about 50 to 55% which is normal. There is moderate concentric left ventricular hypertrophy. There is grade 1 diastolic dysfunction. Cannot exclude mild septal hypokinesis other than that no regional wall motion abnormalities identified. LV cavity size is normal Linear echodensity is noted at the left ventricular apex consistent with a false tendon. Right Ventricle Normal right ventricle. Atria Left atrium is dilated. Transverse diameter is 4.3 cm. Left atrial volume index of 29 mL/m?? appears to be an underestimate. Mitral Valve Mitral valve appears grossly normal structurally and functionally. There is trivial mitral regurgitation. There is no mitral stenosis. Tricuspid Valve Tricuspid valve appears grossly normal structurally and functionally. RV systolic pressure not estimated because there was no appreciable tricuspid regurgitation. Aortic Valve Aortic valve is grossly normal structurally and functionally. Pericardium/Pleural No pericardial effusion. MMode/2D Measurements & Calculations LVIDd: 4.9 cm IVSd: 1.5 cm Ao root diam: 3.6 cm LVIDs: 3.4 cm LVPWd: 1.5 cm RVDd: 3.5 cm FS: 30.0 % LAV(MOD-bp): 61.7 ml SV(MOD-sp4): 66.9 ml LVAd ap4: 32.0 cm2 LAV(MOD-bp) Indexed: 29.0 ml/m2 LVLd ap4: 8.4 cm LAV(MOD-sp2): 63.8 ml EDV(MOD-sp4): 102.4 ml LAV(MOD-sp4): 60.0 ml EDV(sp4-el): 104.4 ml LVAs ap4: 17.4 cm2 LVLs ap4: 7.3 cm ESV(MOD-sp4): 35.6 ml ESV(sp4-el): 35.4 ml EF(MOD-sp4): 65.3 % EF(sp4-el): 66.1 % SV(sp4-el): 68.9 ml LA dimension(2D): 4.2 cm LA A4 area: 19.6 cm2 RA A4 area: 12.4 cm2 Doppler Measurements & Calculations MV E max pancho: 72.9 cm/sec Lat Peak E' Pancho: 4.9 cm/sec Med Peak E' Pancho: 4.8 cm/sec MV A max pancho: 86.8 cm/sec E/E' lat: 14.9 E/E' med: 15.1 MV E/A: 0.84 Ao V2 max: 128.9 cm/sec LV V1 max: 117.0 cm/sec PA V2 max: 84.1 cm/sec Ao max P.6 mmHg LV V1 max P.5 mmHg Ao V2 mean: 99.7 cm/sec Ao mean P.1 mmHg Ao V2 VTI: 24.9 cm ECHO/Echo Complete Interpretation Summary Overall image quality is good. Visually estimated left ventricular ejection fraction is about 50 to 55% which is normal. There is moderate concentric left ventricular hypertrophy. There is grade 1 diastolic dysfunction. Cannot exclude mild septal hypokinesis other than that no regional wall motion abnormalities identified. LV cavity size is normal Linear echodensity is noted at the left ventricular apex consistent with a fals e tendon. Left atrium is dilated. Transverse diameter is 4.3 cm. Left atrial volume index of 29 mL/m?? appears to be an underestimate. Cannot exclude aneurysm of the interatrial septum. Mitral valve appears grossly normal structurally and functionally. There is tri vial mitral regurgitation. There is no mitral stenosis. Tricuspid valve appears grossly normal structurally and functionally. RV systol ic pressure not estimated because there was no appreciable tricuspid regurgitation. Aortic valve is grossly normal structurally and functionally. There is no pericardial effusion or pleural effusion. Inferior vena cava size is normal, no evidence of IVC plethora, There are no major changes compared to echocardiogram report of April 2021. LV e jection fraction at that time was reported to be 65%. Overall left ventricular ejection fraction is still normal but probably in the 50 to 55% range. Ordering Physician: Selwyn Smith Referring Physician: Sivan Bowie Performed By: Lety Canchola, GONZALESCS, RVT
--- NOTE | 2021-11-18 03:59 | CRPH1.INST_ITS ---
General Education CAD and cardiac anatomy and function:: Patient communicates acknowledgment, Family communicates acknowledgment, Needs reinforcement Explanation of diagnoses and procedures:: Patient communicates acknowledgment, Family communicates acknowledgment, Needs reinforcement Sign/Symptoms of CO:: Patient communicates acknowledgment, Family communicates acknowledgment, Needs reinforcement Antiplatelet therapy: Patient communicates acknowledgment, Family communicates acknowledgment, Needs reinforcement Proper use of NTG-SL: Patient communicates acknowledgment, Family communicates acknowledgment, Needs reinforcement Emergency procedures and activation of EMS: Patient communicates acknowledgment, Family communicates acknowledgment, Needs reinforcement Compliance of all prescribed medications: Patient communicates acknowledgment, Family communicates acknowledgment, Needs reinforcement Smoking Patient Nicotine/Smoking Risk Factors Are:: Cigarettes Recommendations Include:: Smoking cessation strategies/Smoking packet, Second- hand smoke recommendation, Participation in a smoking cessation program Nicotine/Smoking Response Code:: Patient communicates acknowledgment, Family communicates acknowledgment, Needs reinforcement Dyslipidemia Patient Dyslipidemia Risk Factors Are:: Total Cholesterol, Triglycerides, HDL, LDL Recommendations Include:: Lipid profile not available, Reviewed NCEP/ATP guidelines, Therapeutic Lifestyle Change dietary guidelines Dyslipidemia Response Code:: Patient communicates acknowledgment, Family communicates acknowledgment, Needs reinforcement Overweight/Obesity Patient Overweight/Obesity Risk Factors Are:: Obesity - > or = 30 Recommendations Include:: Weight loss of 5-10%, Reduced calorie diet, Exercise 5-7 times/week Overweight/Obesity:: Patient communicates acknowledgment, Family communicates acknowledgment, Needs reinforcement Hypertension Recommendations Include:: BP <130/80 if diabetic, DASH dietary guidelines, Decrease/maintain normal body weight, Moderation of ETOH Hypertension:: Patient communicates acknowledgment, Family communicates acknowledgment, Needs reinforcement Heart Disease Patient Heart Disease Risk Factors Are:: Previous cardiac event Recommendations Include:: Educated family members of their risk, Educated family members of importance of prevention of heart disease Heart Disease Response Code:: Patient communicates acknowledgment, Family communicates acknowledgment, Needs reinforcement Diabetes Patient Diabetes Risk Factors Are:: Elevated blood sugars Recommendations Include:: Maintain fasting blood sugars 70-110 md/dL, Maintain HgbA1c of 6% or less, Monitor blood sugar as prescribed, Diabetic dietary guidelines, Decrease/maintain body weight Diabetes:: Patient communicates acknowledgment, Family communicates acknowledgment, Needs reinforcement Sedentary Patient Sedentary Risk Factors Are:: Lack of regular exercise Recommendations Include:: Aerobic exercise 5-7 times/week for 20-30 minutes continuously, Benefits of regular exercise, Discussed home walking program, Monitored Outpatient Cardiac Rehab Sedentary Response Code:: Patient communicates acknowledgment, Family communicates acknowledgment, Needs reinforcement Stress Recommendations Include:: Identification of stressors, and assessment of coping skills, Stress management techniques Stress Response Code:: Patient communicates acknowledgment, Family communicates acknowledgment, Needs reinforcement
--- NOTE | 2021-11-18 03:59 | CRPHASE1 ---
Patient Communication Former Patient:: Phase I PHII Cardiac Rehab Discussed with Patient:: Yes Guide to Cardiac Rehab Given to Patient:: Yes Cardiac Rehab Facility Choice List Given to Patient:: Yes Choice Program [facility] CR PHII:: Communication Given to CR Revenue Coordinator:: Lisa Lemos Refer Phase II Cardiac Rehab:: Yes Sessions:: 36 sessions - 3 days/wk, 12 weeks Cardiac Rehabilitation Info Cardiac Rehabilitation Program Information: Cardiac Rehabilitation is important for patients like you who are recovering from a heart problem. Cardiac rehabilitation programs are recognized as integral to the continued care of the patient with coronary heart disease. The cardiac rehabilitation program is designed to optimize a patient's physical, psychological, and social functioning. Health workforce investment act career manager work in cardiac rehabilitation programs and assist you with getting the treatments you need to get stronger and healthier - like exercise, healthy eating habits, and medications. Cardiac rehabilitation has been show to help people with heart problems live longer and have better life enjoyment than people who do not go to cardiac rehabilitation. Please contact the Cardiac Rehabilitation Program at [facility] at in two weeks if you have not heard from them.
--- NOTE | 2021-11-18 04:22 | PCI.CARDCATH ---
PCI Cardiac Cath Report PCI Report: This is a preliminary note. Patient presented with acute anterolateral ST elevation myocardial infarction, underwent emergent coronary angiography, PCI and stenting of the mid left anterior descending artery, 1 drug-eluting stent was used, previously deployed stents are patent in the RCA LAD and circumflex distribution, LVEDP is about 20 mmHg, LVEF is about 50%, the right femoral artery sheath is in place. No immediate complications. Full details to follow. Discussed plan of care with admitting hospitalist.
[2021-11-18 05:09] LABS: Absolute Lymphocyte Count 2.74 X10^3/uL (0.83-4.51); Absolute Neutrophil Count 9.7 X10^3/uL (2.0-7.7); Basophil# 0.05 X10^3/uL; Basophil% 0.4 % (0-1); Eosinophil# 0.34 X10^3/uL; Eosinophils% 2.4 % (0-5); Hematocrit 39.8 % (40-54); Hemoglobin 12.8 g/dL (13.0-16.5); Lymphocyte # 2.74 X10^3/ul (0.83-4.51); Lymphocyte % 19.4 % (19-41); Mean Corp Hgb Conc 32.2 g/dL (32-36); Mean Corpuscular Hgb 29.3 pg (27.0-32.0); Mean Corpuscular Volume 91.1 fL (80-94); Mean Platelet Vol. 10.1 fl (6.2-12.0); Monocyte# 1.19 X10^3/uL; Monocyte% 8.4 % (0-10); NRBC Flagged by Analyzer 0 % (0-5); Neutrophil # 9.68 X10^3/uL (2.7-7.7); Neutrophil % 68.8 % (47-70); Platelet Count 304 K/mm3 (150-450); RBC Distribution Width SD 49.9 fl (35.1-43.9); Red Blood Count 4.37 M/mm3 (4.6-6.2); White Blood Count 14.1 K/mm3 (4.4-11.0)
[2021-11-18 05:32] LABS: ALB/GLOB Ratio 0.9 RATIO (0.9-2.4); AST(SGOT) 94 U/L (15-37); Alanine Aminotransfer ALT/SGPT 28 U/L (16-61); Albumin, Serum 2.8 g/dL (3.2-5.0); Alkaline Phosphatase 65 U/L (45-117); Anion Gap 5 (5-15); BUN 18 mg/dL (7-18); BUN/Creat Ratio 19.5 RATIO (10-20); Calcium,Total 8.1 mg/dL (8.5-10.1); Chloride 107 mmol/L (98-107); Cholesterol 139 mg/dL (200); Creatinine, Serum 0.92 mg/dL (0.70-1.30); EST Glomerular Filtration Rate 92 mL/min (>60); Est Glom Filt Rate - Afr Amer 112 mL/min (>60); Estimated Creatinine Clearance 92.93 ml/min; Globulin 3.2 g/dL (2.2-4.2); Glucose 207 mg/dL (74-106); High Density Lipoprotein 35 mg/dL; Potassium 4.1 mmol/L (3.5-5.1); Sodium Level 141 mmol/L (136-145); Triglycerides 65 mg/dL; Very Low Density Lipoprotein 13 mg/dL (5-40)
[2021-11-18 05:35] LABS: Magnesium 2.3 mg/dL (1.6-2.6)
[2021-11-18] MEDS: Albuterol 2.5 MG/3 ML VIAL.NEB. INHALATION (07:05)
--- NOTE | 2021-11-18 07:14 | PCM.PN.HOSP ---
Subjective Subjective Patient has known history of NH and has multiple stents. In the morning, patient complained of back discomfort. Right femoral has sheath and arterial A-line. Patient also has history of COPD and is wheezing. Objective Data Objective Data Vital Signs: Vital Signs Temp Pulse Resp BP Pulse Ox 97.7 F L 71 18 190/107 H 95 11/18/21 02:08 11/18/21 07:07 11/18/21 07:07 11/18/21 02:08 11/18/21 07:07 Oxygen Flow Rate (L/min) 2.5 Oxygen Delivery Method Nasal Cannula Weight: 221 lb 5.506 oz Body Mass Index (BMI) 33.6 Lab / Micro Data Result Diagrams: 11/18/21 06:56 11/18/21 04:50 Labs: Laboratory Results - last 24 hr 11/18/21 01:18: WBC 14.6 H, RBC 5.13, Hgb 15.1, Hct 45.6, MCV 88.9, MCH 29.4, MCHC 33.1, RDW Std Deviation 48.7 H, RDW Coeff of Narcisa 14.9 H, Plt Count 340, MPV 10.0, Immature Gran % (Auto) 0.600, Neut % (Auto) 64.1, Lymph % (Auto) 21.9, [place] % (Auto) 10.7 H, Eos % (Auto) 2.3, Baso % (Auto) 0.4, Absolute Neuts (auto) 9.4 H, Absolute Lymphs (auto) 3.20, Nucleated RBC % 0, Diff Path Review May foll, Anisocytosis 1+ 11/18/21 01:18: PT 11.6 L, INR 0.9, APTT 26.0 11/18/21 01:18: Sodium 141, Potassium 3.5, Chloride 107, Carbon Dioxide 29.0, Anion Gap 5, BUN 21 H, Creatinine 0.92, Estim Creat Clear Calc 92.93, Est GFR (MDRD) Af Amer 111, Est GFR (MDRD) Non-Af 92, BUN/Creatinine Ratio 22.7 H, Glucose 131 H, Calcium 9.3, Troponin I High Sens 76 11/18/21 04:50: WBC 14.1 H, RBC 4.37 L, Hgb 12.8 L, Hct 39.8 L, MCV 91.1, MCH 29.3, MCHC 32.2, RDW Std Deviation 49.9 H, RDW Coeff of Narcisa 15.0 H, Plt Count 304, MPV 10.1, Immature Gran % (Auto) 0.600, Neut % (Auto) 68.8, Lymph % (Auto) 19.4, [place] % (Auto) 8.4, Eos % (Auto) 2.4, Baso % (Auto) 0.4, Absolute Neuts (auto) 9.7 H, Absolute Lymphs (auto) 2.74, Nucleated RBC % 0 11/18/21 04:50: Magnesium 2.3 11/18/21 04:50: Sodium 141, Potassium 4.1, Chloride 107, Carbon Dioxide 29.0, Anion Gap 5, BUN 18, Creatinine 0.92, Estim Creat Clear Calc 92.93, Est GFR (MDRD) Af Amer 112, Est GFR (MDRD) Non-Af 92, BUN/Creatinine Ratio 19.5, Glucose 207 H, Calcium 8.1 L, Total Bilirubin 0.40, AST 94 H, ALT 28, Alkaline Phosphatase 65, Total Protein 6.0 L, Albumin 2.8 L, Globulin 3.2, Albumin/Globulin Ratio 0.9, Triglycerides 65, Cholesterol 139, LDL Cholesterol 91, VLDL Cholesterol 13, HDL Cholesterol 35 L Radiography Diagnostic Testing: Radiology Impression Chest X-Ray 11/18/21 01:12 IMPRESSION: Normal x-ray examination of the chest. Electronically Signed: Danya Osborn MD at 1:35 EST Tel , Service support , Physical Exam Narrative General: Alert, Oriented x3, Cooperative HEENT: Atraumatic, PERRLA, EOMI, Normocephalic Oral: No Gingival or Mucosal Lesions/ Ulcerations Neck: Supple, No JVD, Negative Carotid Bruits. C-spine surgery with plate in the past. Lungs: Air entry diminished in bilateral lung bases. Bilateral gross wheezing. Cardiovascular: Regular rate, Regular Rhythm, Normal S1, Normal S2, No murmurs Abdomen: Bowel Sounds Present, Soft, Non Tender, Non-Distended : No renal angle tenderness. No suprapubic tenderness. Extremities: No edema, Capillary Refill Less than 3 Seconds Skin: No hematoma at right femoral arterial sheath but mild tenderness. Musculoskeletal spine: Lumbar spine discomfort. Could not examine back as patient on supine position because of right femoral arterial sheath Neurological: Cranial nerves II-XII grossly intact, DTR 2+/4 and Symmetrical, Neuro grossly intact Psych/Mental Status: Normal Affect, Appropriate. Assessment & Plan Assessment/Plan (1) ST elevation (STEMI) myocardial infarction: (2) Essential hypertension: (3) Diabetes: QUALIFIERS: Diabetes mellitus complication status: with hyperglycemia Diabetes mellitus mcc insulin use: with mcc use Diabetes mellitus type: type 2 Qualified Code(s): E11.65 - Type 2 diabetes mellitus with hyperglycemia; Z79.4 - shelter (current) use of insulin (4) Chronic obstructive pulmonary disease (COPD): QUALIFIERS: COPD type: unspecified COPD Qualified Code(s): J44.9 - Chronic obstructive pulmonary disease, unspecified PLAN: The patient came to ER with anterolateral STEMI and underwent emergent cath as per protocol. PCI and stenting of mid LAD, previously stents patent in RCA LAD and circumflex. LVEF about 50%. Thereafter patient admitted to ICU. Patient currently on supine position as per cardiac cath protocol. Right femoral artery sheath removal as per tube skiver protocol. On aspirin and Brilinta. Patient had Integrilin. Fasting profile LDL 91, HDL 35. Atorvastatin increased to 80 mg daily. 2D echo in April 2021 shows EF 65%, trivial MR. 2D echo is done but not reported yet Patient wants to sign AMA. Advised to stay as he needs at least 1 day monitoring for reperfusion arrhythmia or chest pain. He does not agree. He knows the course of NH and he had several in the past. He is cleared for Brilinta, metoprolol and atorvastatin sent to patient pharmacy. Patient already on lisinopril,, aspirin, isosorbide mononitrate at home. Essential HTN - Resume home medications, Metoprolol 100 BID, Imdur, lisinopril 20 BID, clonidine 0.2 bid DM type II: Advised to hold Metformin for 2 more days. Accu-Chek before meals and at bedtime on sliding scale Humalog. Insulin degludec 15 units subcu at bedtime daily at home. Patient also history of COPD and is on maintenance inhaler Trelegy at home. Patient continues to smoke. VTE prophylaxis: Patient arterial sheath is removed in afternoon. No anticoagulants for at least 24 hours Charges/Coding Visit Charges Inpatient E&M: 12862 [facility] Hosp L3
[2021-11-18 07:22] LABS: Hematocrit 39.8 % (40-54); Hemoglobin 13.2 g/dL (13.0-16.5); Mean Corp Hgb Conc 33.2 g/dL (32-36); Mean Corpuscular Hgb 30.1 pg (27.0-32.0); Mean Corpuscular Volume 90.7 fL (80-94); Mean Platelet Vol. 10.2 fl (6.2-12.0); Platelet Count 307 K/mm3 (150-450); RBC Distribution Width CV 15.1 % (11.6-14.6); RBC Distribution Width SD 50.1 fl (35.1-43.9); Red Blood Count 4.39 M/mm3 (4.6-6.2); White Blood Count 12.8 K/mm3 (4.4-11.0)
--- NOTE | 2021-11-18 07:52 | EKG12_ITS ---
Test Reason : PCI Blood Pressure : / mmHG Vent. Rate : 066 BPM Atrial Rate : 066 BPM P-R Int : 168 ms QRS Dur : 102 ms QT Int : 444 ms P-R-T Axes : 067 062 -31 degrees QTc Int : 465 ms Normal sinus rhythm Anterior infarct , possibly acute ACUTE TX / STEMI Abnormal ECG Confirmed by ANNE EVANGELISTA, ERIC ([id number]), medical transcription editor EVELIO CURRY ([id number]) on 12/01/2021 8:15:27 AM Referred By: Lisa Lemos Confirmed By:ERIC RODRÍGUEZ MD
[2021-11-18] MEDS: 0.9% Normal Saline 1,000 ML 100 ML IV (08:19)
[2021-11-18 08:26] LABS: Bedside Glucose 92 mg/dL (70-110)
[2021-11-18] MEDS: Morphine 2 MG/ML Syringe IV (09:29)
--- NOTE | 2021-11-18 10:28 | EKG12_ITS ---
Test Reason : POST STEMI Blood Pressure : / mmHG Vent. Rate : 064 BPM Atrial Rate : 064 BPM P-R Int : 176 ms QRS Dur : 104 ms QT Int : 402 ms P-R-T Axes : 059 040 009 degrees QTc Int : 414 ms Normal sinus rhythm Low voltage QRS (Limb Leads) Anteroseptal LA, age undetermined, cannot be excluded Confirmed by ANNE EVANGELISTA, ERIC ([id number]), photographic editor EVELIO CURRY ([id number]) on 12/01/2021 8:37:11 AM Referred By: Lisa Lemos Confirmed By:ERIC RODRÍGUEZ MD
--- NOTE | 2021-11-18 11:01 | CASEMGMT ---
RN CM SENIOR JAVA DATA ARCHITECT CM to room to meet with patient for initial transition planning/care coordination assessment. VETO LUBIN introduced self and role at [facility]. Pt voices understanding and consents to assessment at this time. Pt resting in bed in no distress at this time. Cande, @ bedside. Pt is A/O at this time and answers all questions appropriately. Care providers, pharmacy, and demographics verified/updated at this time. PCP: Dr Bowie Specialists: Dr Flores-cardiology, Dr Zuleta--pulmonology, Dr Mars-nephrology [facility] Insurance: MMO Prescription Benefit: Yes. Pt will be d/c'ing home on Brilinta. 30-day savings card given to and pt and instructed on use. and pt both made aware if refills are not affordable to discuss possible options w/Dr Flores. They voice understanding. Living Will/HPOA: Pt does not currently have LW/HCPOA. Pt and made aware that he can contact as an out-pt and make appt in the future if he decides he would like to talk with someone about this or would like to utilize [facility] social work for advanced directive completion. LNOK: Cande Living Arrangements: Lives w/ in upstairs apartment w/, son, and daughter. There are 20-22 steps to get up to apt and does not have elevator access. Pt states the stairs Kick my ass. Pt is independent w/ADL's. Transportation: Pt and DME: Pt has a nebulizer. HHC/SNF:No hx of either. No needs identified. Pt wishes to return home and states has no concerns with going home at time of discharge. Pt and voices no further concerns/needs at this time. Advised them to ask for CM if any further questions/concerns/needs arise. They voice understanding. PLAN: Home w/ and discharge plans in place. José Miguel MUÑOZ RN, CM
[2021-11-18] MEDS: Isosorbide Mononitrate 60 MG Tablet PO (11:12)
[2021-11-18] MEDS: Metoprolol Tartrate 25 MG Tablet PO ×2 (11:12→20:34)
[2021-11-18] MEDS: Spironolactone 25 MG Tablet PO (11:13)
[2021-11-18] MEDS: Chlorthalidone 50 MG Tablet 25 MG PO (11:14)
[2021-11-18] MEDS: amLODIPine 10 MG Tablet PO (11:16)
[2021-11-18] MEDS: Lisinopril 20 MG Tablet PO ×2 (11:16→20:32)
[2021-11-18] MEDS: Aspirin 81 MG TAB.CHEW PO (11:26)
[2021-11-18] MEDS: TICAGRELOR 90 MG TABLET PO ×2 (11:26→20:33)
[2021-11-18 12:00] LABS: Bedside Glucose 126 mg/dL (70-110)
--- NOTE | 2021-11-18 15:01 | PCM.DC.SUM ---
Providers Date of Admission: 11/18/21 Primary Care Physician: Dr. Sivan Bowie MD Reason For Visit: STEMI Diagnosis Discharge Diagnosis (1) ST elevation (STEMI) myocardial infarction: Status: Acute Code(s): I21.3 - ST elevation (STEMI) myocardial infarction of unspecified site (2) Essential hypertension: Status: Chronic Code(s): I10 - Essential (primary) hypertension (3) Diabetes: Status: Acute Code(s): E11.9 - Type 2 diabetes mellitus without complications Qualifiers: Diabetes mellitus type: type 2 Diabetes mellitus tank terminal gauger insulin use: with tank terminal gauger use Diabetes mellitus complication status: with hyperglycemia Qualified Code(s): E11.65 - Type 2 diabetes mellitus with hyperglycemia; Z79.4 - ad terminal makeup operator (current) use of insulin (4) Chronic obstructive pulmonary disease (COPD): Status: Chronic Code(s): J44.9 - Chronic obstructive pulmonary disease, unspecified Qualifiers: COPD type: unspecified COPD Qualified Code(s): J44.9 - Chronic obstructive pulmonary disease, unspecified Medications at Discharge Home Medications aspirin 81 mg PO DAILY #90 tab.chew 12/12/16 Trelegy Ellipta 1 inh INHALATION DAILY 04/28/21 amlodipine 10 mg PO DAILY 04/28/21 budesonide 0.5 mg INHALATION BID 04/28/21 chlorthalidone 25 mg PO DAILY 04/28/21 clonidine HCl 0.2 mg PO BID 04/28/21 isosorbide mononitrate 60 mg PO DAILY 04/28/21 spironolactone 25 mg PO DAILY 04/28/21 metformin 500 mg PO BID #90 tab 05/01/21 insulin needles (disposable) 30 X 3/4 #1 05/25/21 lisinopril 20 mg tablet 20 mg PO BID #180 tab 05/25/21 BD Ultra-Fine Tomasa Pen Needle 32 gauge x 5/32 1 ea MISCELLANEOUS 4X/DAY #200 ea NS 05/27/21 insulin lispro 200 unit/mL (3 mL) subcutaneous pen 14 unit SUBCUT TID 90 Days #18.9 ml 06/01/21 fluticasone fur. 200 mcg-umeclid 62.5 mcg-vilant 25 mcg inhalat.powder 1 inh INHALATION DAILY ea 06/16/21 loratadine 10 mg tablet 10 mg PO DAILY #90 tab 07/04/21 insulin degludec 200 unit/mL (3 mL) subcutaneous pen 50 unit SUBCUT QHS #9 ml 10/06/21 ProAir RespiClick 2 inh INHALATION PRN PRN 11/18/21 atorvastatin 80 mg PO QHS #30 tab 11/18/21 metoprolol tartrate 25 mg PO BID #60 tab 11/18/21 ticagrelor [Brilinta] 90 mg PO BID #60 tab 11/18/21 Weight / BMI Weight Weight: 221 lb 5.506 oz Body Mass Index (BMI) 33.6 ABG / Lab / Microbiology Data Result Diagrams: 11/18/21 06:56 11/18/21 04:50 Laboratory: Laboratory Results - last 24 hr 11/18/21 01:18: WBC 14.6 H, RBC 5.13, Hgb 15.1, Hct 45.6, MCV 88.9, MCH 29.4, MCHC 33.1, RDW Std Deviation 48.7 H, RDW Coeff of Narcisa 14.9 H, Plt Count 340, MPV 10.0, Immature Gran % (Auto) 0.600, Neut % (Auto) 64.1, Lymph % (Auto) 21.9, Cross % (Auto) 10.7 H, Eos % (Auto) 2.3, Baso % (Auto) 0.4, Absolute Neuts (auto) 9.4 H, Absolute Lymphs (auto) 3.20, Nucleated RBC % 0, Diff Path Review May foll, Anisocytosis 1+ 11/18/21 01:18: PT 11.6 L, INR 0.9, APTT 26.0 11/18/21 01:18: Sodium 141, Potassium 3.5, Chloride 107, Carbon Dioxide 29.0, Anion Gap 5, BUN 21 H, Creatinine 0.92, Estim Creat Clear Calc 92.93, Est GFR (MDRD) Af Amer 111, Est GFR (MDRD) Non-Af 92, BUN/Creatinine Ratio 22.7 H, Glucose 131 H, Calcium 9.3, Troponin I High Sens 76 11/18/21 04:50: WBC 14.1 H, RBC 4.37 L, Hgb 12.8 L, Hct 39.8 L, MCV 91.1, MCH 29.3, MCHC 32.2, RDW Std Deviation 49.9 H, RDW Coeff of Narcisa 15.0 H, Plt Count 304, MPV 10.1, Immature Gran % (Auto) 0.600, Neut % (Auto) 68.8, Lymph % (Auto) 19.4, Cross % (Auto) 8.4, Eos % (Auto) 2.4, Baso % (Auto) 0.4, Absolute Neuts (auto) 9.7 H, Absolute Lymphs (auto) 2.74, Nucleated RBC % 0 11/18/21 04:50: Sodium Cancelled, Potassium Cancelled, Chloride Cancelled, Carbon Dioxide Cancelled, Anion Gap Cancelled, BUN Cancelled, Creatinine Cancelled, Estim Creat Clear Calc Cancelled, Est GFR (MDRD) Af Amer Cancelled, Est GFR (MDRD) Non-Af Cancelled, BUN/Creatinine Ratio Cancelled, Glucose Cancelled, Calcium Cancelled 11/18/21 04:50: Magnesium 2.3 11/18/21 04:50: Sodium 141, Potassium 4.1, Chloride 107, Carbon Dioxide 29.0, Anion Gap 5, BUN 18, Creatinine 0.92, Estim Creat Clear Calc 92.93, Est GFR (MDRD) Af Amer 112, Est GFR (MDRD) Non-Af 92, BUN/Creatinine Ratio 19.5, Glucose 207 H, Calcium 8.1 L, Total Bilirubin 0.40, AST 94 H, ALT 28, Alkaline Phosphatase 65, Total Protein 6.0 L, Albumin 2.8 L, Globulin 3.2, Albumin/Globulin Ratio 0.9, Triglycerides 65, Cholesterol 139, LDL Cholesterol 91, VLDL Cholesterol 13, HDL Cholesterol 35 L 11/18/21 06:56: WBC 12.8 H, RBC 4.39 L, Hgb 13.2, Hct 39.8 L, MCV 90.7, MCH 30.1, MCHC 33.2, RDW Std Deviation 50.1 H, RDW Coeff of Narcisa 15.1 H, Plt Count 307, MPV 10.2 11/18/21 08:17: POC Glucose 92 11/18/21 10:55: Troponin I High Sens 32288 H* 11/18/21 11:55: POC Glucose 126 H Radiography Diagnostic Testing: Radiology Impression Chest X-Ray 11/18/21 01:12 IMPRESSION: Normal x-ray examination of the chest. Electronically Signed: Danya Osborn MD at 1:35 EST Tel , Service support , Discharge Plan Admission Admit Date/Time: 11/18/21 01:51 Primary Reason for Your Visit: Anterolateral STEMI Attending Provider: Nasim Leblanc Primary Care Provider: Sivan Bowie Discharge Orders/Prescriptions Prescriptions: New atorvastatin 80 mg Tablet 80 mg PO QHS Qty: 30 RF: 2 metoprolol tartrate 25 mg Tablet 25 mg PO BID Qty: 60 RF: 0 Brilinta 90 mg Tablet 90 mg PO BID Qty: 60 RF: 2 Continued (DME) insulin needles (disposable) 30 X 3/4 needle See Rx Instructions .ROUTE .MEDSUPPLY Qty: 1 RF: 0 lisinopril 20 mg tablet 20 mg PO BID Qty: 180 RF: 2 wxqdonhgkip-wegazwvbi-gpruabss 200-62.5-25 mcg blister with device 1 inh inhalation DAILY RF: 0 Tresiba FlexTouch U-200 200 unit/mL (3 mL) insulin pen 50 unit subcut QHS Qty: 9 RF: 6 Humalog KwikPen Insulin 200 unit/mL (3 mL) insulin pen 14 unit subcut TID 90 Days Qty: 18.9 RF: 2 aspirin 81 MG tablet,chewable 81 mg PO DAILY Qty: 90 RF: 0 chlorthalidone 25 mg tablet 25 mg PO DAILY RF: 0 spironolactone 25 mg tablet 25 mg PO DAILY RF: 0 budesonide 0.5 mg/2 mL suspension for nebulization 0.5 mg inhalation BID RF: 0 clonidine HCl 0.2 mg tablet 0.2 mg PO BID RF: 0 Trelegy Ellipta 100-62.5-25 mcg Blister With Device 1 inh INHALATION DAILY RF: 0 isosorbide mononitrate 60 mg tablet extended release 24 hr 60 mg PO DAILY RF: 0 amlodipine 10 mg tablet 10 mg PO DAILY RF: 0 ProAir RespiClick 90 mcg/actuation aerosol powdr breath activated 2 inh INHALATION PRN PRN (Reason: Bronchodilation) RF: 0 pen needle, diabetic [BD Ultra-Fine Tomasa Pen Needle] 32 gauge x 5/32 needle 1 ea miscellaneous 4X/DAY Qty: 200 RF: 3 loratadine 10 mg tablet 10 mg PO DAILY Qty: 90 RF: 1 Held metformin 500 mg tablet 500 mg PO BID Qty: 90 RF: 0 Hold Instructions: Hold for 2 days Discontinued atorvastatin 40 mg tablet 40 mg PO QHS RF: 0 metoprolol tartrate 100 mg tablet 100 mg PO BID RF: 0 clopidogrel 75 mg tablet 75 mg PO DAILY RF: 0 Referrals / Follow Up: Sivan Bowie MD [Primary Care Provider] -
[2021-11-18 16:26] LABS: Bedside Glucose 92 mg/dL (70-110)
--- NOTE | 2021-11-18 16:27 | NURSING ---
PT CALLED OUT REQUESTING TO GET UP AT 1600. BEDREST IS COMPLETE. THIS NURSE WENT TO ASSIST PT W/MONITOR AND IV POLE. THIS NURSE SO YOU'RE READY TO GET UP? PT THAT'S WHAT I JOSE FRANCISCOKING CALLED OUT FOR. PT RIPPING BP CUFF OFF HIS ARM. PT VOICES FRUSTRATION OVER STAYING NIGHT IN THE HOSPITAL. THOSE FUCKING BASTARDS ARE MAKING ME STAY. PT ADVISED THAT HE HAS A RIGHT TO LEAVE IF HE WANTS TO THE DR JUST JUST RECOMMENDS PT STAY THE NIGHT FOR OBSERVATION. PT ADVISED HE MAY LEAVE IF HE SIGNS AMA PAPERS. BUT THEN MY [employer] INSURANCE WON'T PAY. PT ADVISED THAT THIS IS NOT A KNOWN FACT, JUST A RISK HE WOULD TAKE WITH LEAVING AMA. I'M FUCKING STAYING AND THAT'S IT, SO JUST DROP IT. PT REFUSING TO ORDER DINNER. PT VERY HOSTILE WHEN SPEAKING TO STAFF. EMOTIONAL SUPPORT AND EDUCATION PROVIDED. PT UNRECEPTIVE.
--- NOTE | 2021-11-18 16:42 | CON.PCM.CA_ITS ---
HPI Consult Data Date of Consult: 11/19/21 HPI Narrative HPI Narrative: LATONYA ELDER, is a 51 M who presents with crushing anterior chest discomfort and EKG showing anterolateral ST segment elevation myocardial infarction with inferior ST depression. Per louis was alerted from the emergency department. at bedside. Past cardiac history is extensive. He had a non-ST segment elevation myocardial infarction in November 2016 with drug-eluting stent to the second obtuse marginal branch In November 2020 he presented with non-ST elevation myocardial infarction, and underwent PCI and stenting of subtotal occlusion of the small mid and distal RCA. He smokes half a pack per day, has history of hypertension dyslipidemia, and diabetes mellitus. In April 2021 he had hospitalization for diabetic ketoacidosis. There is history of medical noncompliance. BMI is excessive. Today he presents with crushing anterior chest discomfort, diaphoresis, no fever or chills no nausea or vomiting no bleeding diathesis. On arrival to the emergency department he was hypertensive, in sinus rhythm, writhing in pain. Lungs clear with distant breath sounds no jugular venous dist ention no carotid bruit heart sounds are regular distant without murmur rub or gallop abdomen nondistended nontender extremities without edema, distal pulses culpable 2-3+ and symmetric. Other past medical history is notable for COPD. Also history of cluster headaches. History of migraine headache. Family history positive for premature coronary artery disease Sister myocardial infarction in 40s Medications were reviewed Allergies to codeine and amoxicillin EKG and chest x-ray reviewed Laboratory data reviewed. Assessment: 1. Acute anterolateral ST segment elevation myocardial infarction, Killip class I 2. There are inferior ST depressions as well and ST elevation in leads I and aVL 3. Multiple cardiac risk factors including hypertension dyslipidemia obesity diabetes family history of premature coronary artery disease and nicotine addiction. 4. Prior history of coronary events, with drug-eluting stents to the obtuse marginal branch 2.75 x 14 mm resolute integrity November 2016, drug-eluting stent mid diagonal branch 2.5 x 18 mm resolute integrity, drug-eluting stent proximal LAD 3.0 x 15 mm resolute integrity February 2019, drug-eluting stent mid circumflex 2.25 x 12 mm Synergy and 3.0 x 16 mm Synergy stent February 2020, PCI drug-eluting stent to right posterolateral ventricular branch 3.0 x 12 mm Synergy stent proximal RCA 3.5 x 20 mm Synergy stent November 2020. 5. Echocardiogram November 2020 LVEF 37% repeat echo April 2021 LVEF 65% Recommendations: 1. We will switch from clopidogrel to Brilinta. 180 mg p.o. was given in the emergency department 2. Patient will undergo emergent coronary angiography and PCI and stenting, procedure risk benefits and alternatives discussed, risk discussed included but were not limited to [place], stroke, , peripheral vascular compromise allergic reaction to dye and possible emergent coronary artery bypass grafting. Patient agrees to proceed. 3. Needs very aggressive risk factor modification. Nicotine cessation is mandatory. 4. Once this patient is out of the initial window for dual antiplatelet therapy, he may be a candidate for Xarelto 2.5 mg p.o. twice daily along with baby aspirin, would also check fasting serum homocysteine levels initiate folic acid and B vitamins as indicated, even consider low-dose colchicine. 5. For his diabetes, would consider Farxiga or Jardiance, but will defer to primary service. Discussed findings with at the bedside as well Please refer to cardiac catheterization report for details of today's procedure. Thank you for allowing us to participate in this patient's care, please do not hesitate to call if further questions arise, Sincerely, Lisa Lemos MD [facility] Medical History Asthma Atherosclerosis of [place] coronary artery of [place] heart without angina pectoris Chronic obstructive pulmonary disease (COPD) Cluster headache Community acquired pneumonia COPD (chronic obstructive pulmonary disease) Diabetes Essential hypertension Headache History of non-ST elevation myocardial infarction (NSTEMI) (11/22/20) Hyperlipidemia Hypertension Ischemic cardiomyopathy Migraine Myocardial infarct Nicotine dependence Non-ST elevation [place] (NSTEMI) Obesity Obesity (BMI 30.0-34.9) Smoker Home Medications aspirin 81 mg PO DAILY #90 tab.chew 12/12/16 [Rx Last Taken 04/28/21] Trelegy Ellipta 1 inh INHALATION DAILY 04/28/21 [History Last Taken 04/28/21] amlodipine 10 mg PO DAILY 04/28/21 [History Last Taken 04/28/21] budesonide 0.5 mg INHALATION BID 04/28/21 [History Last Taken 04/28/21] chlorthalidone 25 mg PO DAILY 04/28/21 [History Last Taken 04/28/21] clonidine HCl 0.2 mg PO BID 04/28/21 [History Last Taken 04/28/21] isosorbide mononitrate 60 mg PO DAILY 04/28/21 [History Last Taken 04/28/21] spironolactone 25 mg PO DAILY 04/28/21 [History Last Taken 04/28/21] metformin 500 mg PO BID #90 tab 05/01/21 [Rx Last Taken Unknown] insulin needles (disposable) 30 X 3/4 #1 05/25/21 [History Last Taken Unknown] lisinopril 20 mg tablet 20 mg PO BID #180 tab 05/25/21 [Rx Last Taken Unknown] BD Ultra-Fine Tomasa Pen Needle 32 gauge x 32 1 ea MISCELLANEOUS 4X/DAY #200 ea NS 05/27/21 [Rx Last Taken Unknown] insulin lispro 200 unit/mL (3 mL) subcutaneous pen 14 unit SUBCUT TID 90 Days #18.9 ml 06/01/21 [Rx Last Taken Unknown] fluticasone fur. 200 mcg-umeclid 62.5 mcg-vilant 25 mcg inhalat.powder 1 inh INHALATION DAILY ea 06/16/21 [History Last Taken Unknown] loratadine 10 mg tablet 10 mg PO DAILY #90 tab 07/04/21 [Rx Last Taken Unknown] insulin degludec 200 unit/mL (3 mL) subcutaneous pen 50 unit SUBCUT QHS #9 ml 10/06/21 [Rx Last Taken Unknown] ProAir RespiClick 2 inh INHALATION PRN PRN 11/18/21 [History Last Taken Unknown] atorvastatin 80 mg PO QHS #30 tab 11/18/21 [Rx Last Taken Unknown] metoprolol tartrate 25 mg PO BID #60 tab 11/18/21 [Rx Last Taken Unknown] ticagrelor [Brilinta] 90 mg PO BID #60 tab 11/18/21 [Rx Last Taken Unknown] Allergy/AdvReac Type Severity Reaction Status Date / Time amoxicillin trihydrate Allergy Rash Verified 10/06/21 15:56 [From Augmentin] potassium clavulanate Allergy Rash Verified 10/06/21 15:56 [From Augmentin] codeine AdvReac Nausea Verified 10/06/21 15:56 Family History Sister Myocardial infarction, Onset Age: 41 Diabetes Mother COPD (chronic obstructive pulmonary disease) Asthma Rheumatoid arthritis CVA (cerebral vascular accident) Hypertension Grandmother Diabetes Surgical History History of appendectomy History of coronary artery stent placement (11/22/20) History of hernia repair (2008) History of neck surgery History of umbilical hernia repair (1971) Social History Smoking Status: Current every day smoker tobacco type: cigarettes Tobacco: How many years used: 20 Electronic Cigarette Use: not used second hand exposure: Yes alcohol intake: current alcohol intake frequency: 0-2 drinks per day Alcohol type: beer substance use type: does not use caffeine: Yes Type: carbonated beverages Number of servings: 2 and tea Number of servings: 6 what type of physical activity do you participate in: none Risk Stratification Risk Stratification Applicable: No Charges/Coding Visit Charges Office Visits / Consults: 40317 ED Visit; High/Threatening Severity Procedures Coronary Therapeutic CF Procedures [id number]: Other Procedure See Report (Patient underwent emergent left heart catheterization selective coronary angiography left ventriculography LV AO pullback PCI and drug-eluting stent to the left anterior descending artery, increased procedural services please refer to procedure details.) Objective Data Vital Signs: Vital Signs Temp Pulse Resp BP Pulse Ox 97.6 F L 67 15 142/81 H 93 11/18/21 12:00 11/18/21 15:00 11/18/21 15:00 11/18/21 15:00 11/18/21 15:00 Oxygen Flow Rate (L/min) 2 Oxygen Delivery Method Room Air Weight: 221 lb 5.506 oz Body Mass Index (BMI) 33.6 Intake & Output: Intake and Output for Last 24 Hours 11/16/21 11/17/21 11/18/21 23:59 23:59 23:59 Intake Total 194.4 / 194.4 Output Total 1400 / 1400 Balance -1205.6 / -1205.6 Lab / Micro Data Result Diagrams: 11/19/21 05:55 11/19/21 05:55 Labs: Laboratory Results - last 24 hr 11/18/21 01:18: WBC 14.6 H, RBC 5.13, Hgb 15.1, Hct 45.6, MCV 88.9, MCH 29.4, MCHC 33.1, RDW Std Deviation 48.7 H, RDW Coeff of Narcisa 14.9 H, Plt Count 340, MPV 10.0, Immature Gran % (Auto) 0.600, Neut % (Auto) 64.1, Lymph % (Auto) 21.9, Laurel % (Auto) 10.7 H, Eos % (Auto) 2.3, Baso % (Auto) 0.4, Absolute Neuts (auto) 9.4 H, Absolute Lymphs (auto) 3.20, Nucleated RBC % 0, Diff Path Review March foll, Anisocytosis 1+ 11/18/21 01:18: PT 11.6 L, INR 0.9, APTT 26.0 11/18/21 01:18: Sodium 141, Potassium 3.5, Chloride 107, Carbon Dioxide 29.0, Anion Gap 5, BUN 21 H, Creatinine 0.92, Estim Creat Clear Calc 92.93, Est GFR (MDRD) Af Amer 111, Est GFR (MDRD) Non-Af 92, BUN/Creatinine Ratio 22.7 H, Glu cose 131 H, Calcium 9.3, Troponin I High Sens 76 11/18/21 04:50: WBC 14.1 H, RBC 4.37 L, Hgb 12.8 L, Hct 39.8 L, MCV 91.1, MCH 29.3, MCHC 32.2, RDW Std Deviation 49.9 H, RDW Coeff of Narcisa 15.0 H, Plt Count 304, MPV 10.1, Immature Gran % (Auto) 0.600, Neut % (Auto) 68.8, Lymph % (Auto) 19.4, [place] % (Auto) 8.4, Eos % (Auto) 2.4, Baso % (Auto) 0.4, Absolute Neuts (auto) 9.7 H, Absolute Lymphs (auto) 2.74, Nucleated RBC % 0 11/18/21 04:50: Sodium Cancelled, Potassium Cancelled, Chloride Cancelled, Carbon Dioxide Cancelled, Anion Gap Cancelled, BUN Cancelled, Creatinine Cancelled, Estim Creat Clear Calc Cancelled, Est GFR (MDRD) Af Amer Cancelled, Est GFR (MDRD) Non-Af Cancelled, BUN/Creatinine Ratio Cancelled, Glucose Cancelled, Calcium Cancelled 11/18/21 04:50: Magnesium 2.3 11/18/21 04:50: Sodium 141, Potassium 4.1, Chloride 107, Carbon Dioxide 29.0, Anion Gap 5, BUN 18, Creatinine 0.92, Estim Creat Clear Calc 92.93, Est GFR (MDRD) Af Amer 112, Est GFR (MDRD) Non-Af 92, BUN/Creatinine Ratio 19.5, Glucose 207 H, Calcium 8.1 L, Total Bilirubin 0.40, AST 94 H, ALT 28, Alkaline Phosphatase 65, Total Protein 6.0 L, Albumin 2.8 L, Globulin 3.2, Albumin/Globulin Ratio 0.9, Triglycerides 65, Cholesterol 139, LDL Cholesterol 91, VLDL Cholesterol 13, HDL Cholesterol 35 L 11/18/21 06:56: WBC 12.8 H, RBC 4.39 L, Hgb 13.2, Hct 39.8 L, MCV 90.7, MCH 30.1, MCHC 33.2, RDW Std Deviation 50.1 H, RDW Coeff of Narcisa 15.1 H, Plt Count 307, MPV 10.2 11/18/21 08:17: POC Glucose 92 11/18/21 10:55: Troponin I High Sens [id number] H* 11/18/21 11:55: POC Glucose 126 H 11/18/21 16:17: POC Glucose 92 Cardiology Labs/Tests 11/18/21 01:18: WBC 14.6 H, RBC 5.13, Hgb 15.1, Hct 45.6, MCV 88.9, MCH 29.4, MCHC 33.1, Plt Count 340, MPV 10.0, Immature Gran % (Auto) 0.600, Neut % (Auto) 64.1, Lymph % (Auto) 21.9, [place] % (Auto) 10.7 H, Eos % (Auto) 2.3, Baso % (Auto) 0.4, Absolute Neuts (auto) 9.4 H, Nucleated RBC % 0 11/18/21 01:18: PT 11.6 L, INR 0.9, APTT 26.0 11/18/21 01:18: Sodium 141, Potassium 3.5, Chloride 107, Carbon Dioxide 29.0, Anion Gap 5, BUN 21 H, Creatinine 0.92, Est GFR (MDRD) Af Amer 111, Est GFR (MDRD) Non-Af 92, BUN/Creatinine Ratio 22.7 H, Glucose 131 H, Calcium 9.3 11/18/21 04:50: WBC 14.1 H, RBC 4.37 L, Hgb 12.8 L, Hct 39.8 L, MCV 91.1, MCH 29.3, MCHC 32.2, Plt Count 304, MPV 10.1, Immature Gran % (Auto) 0.600, Neut % (Auto) 68.8, Lymph % (Auto) 19.4, [place] % (Auto) 8.4, Eos % (Auto) 2.4, Baso % (Auto) 0.4, Absolute Neuts (auto) 9.7 H, Nucleated RBC % 0 11/18/21 04:50: Sodium Cancelled, Potassium Cancelled, Chloride Cancelled, Carbon Dioxide Cancelled, Anion Gap Cancelled, BUN Cancelled, Creatinine Cancelled, Est GFR (MDRD) Af Amer Cancelled, Est GFR (MDRD) Non-Af Cancelled, BUN/Creatinine Ratio Cancelled, Glucose Cancelled, Calcium Cancelled 11/18/21 04:50: Magnesium 2.3 11/18/21 04:50: Sodium 141, Potassium 4.1, Chloride 107, Carbon Dioxide 29.0, Anion Gap 5, BUN 18, Creatinine 0.92, Est GFR (MDRD) Af Amer 112, Est GFR (MDRD) Non-Af 92, BUN/Creatinine Ratio 19.5, Glucose 207 H, Calcium 8.1 L, Total Bilirubin 0.40, Triglycerides 65, Cholesterol 139, LDL Cholesterol 91, VLDL Cholesterol 13, HDL Cholesterol 35 L 11/18/21 06:56: WBC 12.8 H, RBC 4.39 L, Hgb 13.2, Hct 39.8 L, MCV 90.7, MCH 30.1, MCHC 33.2, Plt Count 307, MPV 10.2 Rhythm: EKG: ECHO: Stress Test: Cardiac Cath: PCI: CT Surgery: Holter monitor: EPS: PPM: CXR: Chest CT Scan: Radiography Diagnostic Testing: Radiology Impression Chest X-Ray 11/18/21 01:12 IMPRESSION: Normal x-ray examination of the chest. Electronically Signed: Danya Osborn MD at 1:35 EST Tel , Service support ,
--- NOTE | 2021-11-18 16:56 | PCIREPORT_ITS ---
PCI Cardiac Cath Report PCI Report: The original to report here is a preliminary report.The following is the final report Patient underwent emergent left heart catheterization, selective coronary angiography, measurement of left ventricular end-diastolic pressure, LV ao pullback, selective right common femoral angiography, PCI and stenting of left anterior descending artery, complex procedure, because of anatomic characteristics. Procedure details: Under local anesthesia a 6 [place] short sheath was placed in the right common femoral artery via single anterior percutaneous stick. All catheter exchanges were made over a 0.035 guidewire. 6 [place] XB 3.5 diagnostic catheter was advanced in the left main coronary artery was selectively engaged. Angiography of the left system was performed in multiple orthogonal views. However, culprit lesion was not apparent on these angiograms. The guide catheter was removed. 5 [place] 3 DRC diagnostic catheter was advanced, right coronary artery was selectively engaged and angiography of the right coronary artery was performed in multiple orthogonal views. Once again there was no lesion to explain patient's presentation and EKG abnormalities. The guide catheter was removed. 5 [place] angled pigtail catheter was advanced across the aortic valve into the left ventricle, left ventricular end-diastolic pressure was measured, left ventriculography was performed in slow manual pullback was performed across the aortic valve. At this time, repeat angiography of the left system was performed. Prior films were also reviewed, and when compared to the current films, there was a suspicion that a portion of the left anterior descending artery may be missing. This is not very apparent because of this patient having a major septal jacket changer which courses along the LAD distribution, and then major diagonal branches coursing alongside the left anterior descending artery, it is only when you compare the prior films to current films [id number] that there was a suspicion that one of the major vessels that coursed along the septal jacket changer could actually be the continuation of the mid LAD or supplying the territory of the mid and distal LAD. Cranial view then identified suspicion of a stump. Decided to try wiring this section section. For that, the 6 [place] XB 3 5 guide catheter was readvanced into the left main coronary artery. A 0.014 180 cm run-through wire was advanced, but would not make it past the bend leading to this stump. The run-through wire was positioned in a major secondary branch of the same vessel. Liner Worker 50 wire was not available. A 0.014 aeroplane pilot one 5300 cm wire was then maneuvered past the apparent or possible segment of total occlusion, and the wire traversed easily into the distribution of the mid and distal LAD. At this point, mild antegrade flow was visualized. It was like a new vessel had shown up. Balloon inflations were performed using a 2.25 x 12 mm Emerge balloon past the segment of total occlusion with mandaeism of antegrade flow, at which time filling defects consistent with plaque rupture was visible. Throughout this, patient was given IV heparin and ACT was documented. A 3.0 x 24 mm Synergy MR drug-eluting stent was advanced, and deployed in the proximal mid left anterior descending artery, very close to the takeoff of the large secondary branch. The balloon was removed. Patient was given IV Integrilin bolus x2 doses, and placed on an Integrilin infusion. Final results showed 0% residual stenosis with ESTEPHANIA-3 flow and no dissection. Coronary angiography: Right dominant system Right coronary artery arises from the right sinus of Valsalva. Large dominant vessel with large distal branches. Radiopaque stent in the mid RCA widely patent with less than 10% stenosis proximal and distal RCA with less than 10% stenosis. Posterior descending artery measures about 3.25 mm and has 80% focal distal stenosis, best managed medically. Posterolateral ventricular branch measures about 3.25 mm and has a patent previously deployed stent. Left main coronary artery arises from the left sinus of Valsalva and bifurcates into the left circumflex artery and the left anterior descending artery. Left main coronary artery has 0% stenosis Left circumflex arteries nondominant, with less than 20% proximal stenosis, first major obtuse marginal branch arises from the proximal vessel, measures about 2.75 mm, and has less than 20% stenosis. The left circumflex artery then terminates in the second obtuse marginal branch. The second obtuse marginal branch has 0% stenosis stent in the AV groove left circumflex artery is patent with 20% smooth stenosis. The left anterior descending artery has a somewhat variant anatomic structure. Radiopaque stent in the proximal left anterior descending artery is patent with less than 10% stenosis. There is a large branch that actually courses in the territory of the proximal left anterior descending artery, but can also be considered as a large first septal jacket changer. Proximally this vessel has 30 to 40% smooth stenosis. This vessel gives off secondary septal perforators, also first and second somewhat small diagonal branches arise from this vessel. After the origin of this large possibly first septal jacket changer, there is another large vessel which bifurcates into 2. The more lateral of these branches courses along the lateral wall, is large in caliber, and has less than 20% stenosis. On final film review, there is also this stump which villar the origin of the totally occluded second major branch which courses parallel to the septal jacket changer and has ESTEPHANIA 0 antegrade flow. This is identified as the culprit vessel. It is only visualized in some views, and its occlusion is somewhat ambiguous unless films are compared to prior angiography. Overall visually estimated left ventricular ejection fraction is about 45 to 50% with mild mid anterior wall hypokinesis. No appreciable mitral regurgitation. Selective right common femoral angiography shows that the access is above the common femoral bifurcation. At the conclusion of the procedure the right femoral artery sheath was secured in place. Patient was transferred to the intensive care unit. There were no immediate complications. Summary: 1. Coronary artery disease involving multiple territories as described in the body of the report. All prior stents are however patent. 2. Distal RCA disease to be treated medically 3. Culprit vessel is proximal mid left anterior descending artery PCI and stenting of this vessel was performed. There was ESTEPHANIA 0 flow prior to ESTEPHANIA-3 flow after the procedure. 3.0 x 24 mm Synergy MR drug-eluting stent was used. 4. Procedural delay in this case was related to umbilicus anatomy, need for additional angiography, culprit vessel did not stand out on initial angiography, and it is only after careful review and additional imaging and comparison with prior imaging that the culprit vessel was probably identified. Initially I was not sure if I was going after a true culprit lesion or not. 5. Patient was loaded with Brilinta and placed on Integrilin 6. LVEF is about 45% with mild anterior hypokinesis 7. Patient needs aggressive risk factor modification and remains at high risk for future coronary events. 8. No immediate complications. I
--- NOTE | 2021-11-18 17:19 | PCM.PN.CARD ---
Subjective Subjective Patient reports no chest discomfort pressure tightness or heaviness. Very anxious to go home, in fact he is upset that he is not being released. Objective Data Patient appears comfortable. Vital signs are stable and are as documented. No jugular venous distention no carotid bruit lungs are clear heart sounds are regular without murmur rub or gallop right groin is tender to deep palpation but dressing is intact, there is no hematoma there is no suspicion for pseudoaneurysm, there is palpable distal pulses and the feet are warm. Patient is oriented x3 grossly nonfocal. He expresses a strong desire to be discharged in fact he was threatening originally to be leaving AGAINST MEDICAL ADVICE but then became upset and decided to stay when RN notified him that leaving AMA may create some issues with his insurance and payment of his medical bills. is at the bedside. Talk to again about findings of coronary angiography the importance of risk factor modification the importance of dual antiplatelet therapy and the importance of close outpatient cardiology follow-up. EKG was reviewed, the anterolateral ST elevation has improved significantly but there was poor R wave progression/anteroseptal Q waves. Overnight patient had 3-4 beat runs of wide-complex tachycardia consistent with reperfusion dysrhythmia. No arrhythmias today. Troponin level is in excess of 40,000. Echocardiogram will be reviewed. Assessment: 1. Patient with multivessel coronary artery disease prior episodes of acute coronary syndrome, status post PCI and drug-eluting stent to proximal mid left anterior descending artery, doing well clinically 2. No symptoms of congestive heart failure no murmurs or rubs. 3. Has multiple cardiac risk factors 4. Chronically anxious to be discharged. Recommendations: 1. Patient would benefit from Jardiance or Farxiga-defer to primary 2. Dual antiplatelet therapy aspirin and Brilinta 3. High intensity statin 4. MIO inhibitor/angiotensin receptor [place] 5. Low-dose colchicine may be considered as an outpatient 6. Eventually this patient may benefit from low-dose Xarelto i.e. 2.5 mg p.o. twice daily 7. Consider fasting homocysteine level or supplement B12 and folic acid. 8. Discussed with hospitalist Dr. Leblanc Vital Signs: Vital Signs Temp Pulse Resp BP Pulse Ox 97.6 F L 67 15 142/81 H 93 11/18/21 12:00 11/18/21 15:00 11/18/21 15:00 11/18/21 15:00 11/18/21 15:00 Oxygen Flow Rate (L/min) 2 Oxygen Delivery Method Room Air Weight: 221 lb 5.506 oz Body Mass Index (BMI) 33.6 Intake & Output: Intake and Output for Last 24 Hours 11/16/21 11/17/21 11/18/21 23:59 23:59 23:59 Intake Total 1086.07 / 1086.07 Output Total 1400 / 1400 Balance -313.93 / -313.93 Lab / Micro Data Result Diagrams: 11/18/21 06:56 11/18/21 04:50 Labs: Laboratory Results - last 24 hr 11/18/21 01:18: WBC 14.6 H, RBC 5.13, Hgb 15.1, Hct 45.6, MCV 88.9, MCH 29.4, MCHC 33.1, RDW Std Deviation 48.7 H, RDW Coeff of Narcisa 14.9 H, Plt Count 340, MPV 10.0, Immature Gran % (Auto) 0.600, Neut % (Auto) 64.1, Lymph % (Auto) 21.9, [place] % (Auto) 10.7 H, Eos % (Auto) 2.3, Baso % (Auto) 0.4, Absolute Neuts (auto) 9.4 H, Absolute Lymphs (auto) 3.20, Nucleated RBC % 0, Diff Path Review May foll, Anisocytosis 1+ 11/18/21 01:18: PT 11.6 L, INR 0.9, APTT 26.0 11/18/21 01:18: Sodium 141, Potassium 3.5, Chloride 107, Carbon Dioxide 29.0, Anion Gap 5, BUN 21 H, Creatinine 0.92, Estim Creat Clear Calc 92.93, Est GFR (MDRD) Af Amer 111, Est GFR (MDRD) Non-Af 92, BUN/Creatinine Ratio 22.7 H, Glucose 131 H, Calcium 9.3, Troponin I High Sens 76 11/18/21 04:50: WBC 14.1 H, RBC 4.37 L, Hgb 12.8 L, Hct 39.8 L, MCV 91.1, MCH 29.3, MCHC 32.2, RDW Std Deviation 49.9 H, RDW Coeff of Narcisa 15.0 H, Plt Count 304, MPV 10.1, Immature Gran % (Auto) 0.600, Neut % (Auto) 68.8, Lymph % (Auto) 19.4, [place] % (Auto) 8.4, Eos % (Auto) 2.4, Baso % (Auto) 0.4, Absolute Neuts (auto) 9.7 H, Absolute Lymphs (auto) 2.74, Nucleated RBC % 0 11/18/21 04:50: Sodium Cancelled, Potassium Cancelled, Chloride Cancelled, Carbon Dioxide Cancelled, Anion Gap Cancelled, BUN Cancelled, Creatinine Cancelled, Estim Creat Clear Calc Cancelled, Est GFR (MDRD) Af Amer Cancelled, Est GFR (MDRD) Non-Af Cancelled, BUN/Creatinine Ratio Cancelled, Glucose Cancelled, Calcium Cancelled 11/18/21 04:50: Magnesium 2.3 11/18/21 04:50: Sodium 141, Potassium 4.1, Chloride 107, Carbon Dioxide 29.0, Anion Gap 5, BUN 18, Creatinine 0.92, Estim Creat Clear Calc 92.93, Est GFR (MDRD) Af Amer 112, Est GFR (MDRD) Non-Af 92, BUN/Creatinine Ratio 19.5, Glucose 207 H, Calcium 8.1 L, Total Bilirubin 0.40, AST 94 H, ALT 28, Alkaline Phosphatase 65, Total Protein 6.0 L, Albumin 2.8 L, Globulin 3.2, Albumin/Globulin Ratio 0.9, Triglycerides 65, Cholesterol 139, LDL Cholesterol 91, VLDL Cholesterol 13, HDL Cholesterol 35 L 11/18/21 06:56: WBC 12.8 H, RBC 4.39 L, Hgb 13.2, Hct 39.8 L, MCV 90.7, MCH 30.1, MCHC 33.2, RDW Std Deviation 50.1 H, RDW Coeff of Narcisa 15.1 H, Plt Count 307, MPV 10.2 11/18/21 08:17: POC Glucose 92 11/18/21 10:55: Troponin I High Sens 11293 H* 11/18/21 11:55: POC Glucose 126 H 11/18/21 16:17: POC Glucose 92 Cardiology Labs/Tests 11/18/21 01:18: WBC 14.6 H, RBC 5.13, Hgb 15.1, Hct 45.6, MCV 88.9, MCH 29.4, MCHC 33.1, Plt Count 340, MPV 10.0, Immature Gran % (Auto) 0.600, Neut % (Auto) 64.1, Lymph % (Auto) 21.9, [place] % (Auto) 10.7 H, Eos % (Auto) 2.3, Baso % (Auto) 0.4, Absolute Neuts (auto) 9.4 H, Nucleated RBC % 0 11/18/21 01:18: PT 11.6 L, INR 0.9, APTT 26.0 11/18/21 01:18: Sodium 141, Potassium 3.5, Chloride 107, Carbon Dioxide 29.0, Anion Gap 5, BUN 21 H, Creatinine 0.92, Est GFR (MDRD) Af Amer 111, Est GFR (MDRD) Non-Af 92, BUN/Creatinine Ratio 22.7 H, Glucose 131 H, Calcium 9.3 11/18/21 04:50: WBC 14.1 H, RBC 4.37 L, Hgb 12.8 L, Hct 39.8 L, MCV 91.1, MCH 29.3, MCHC 32.2, Plt Count 304, MPV 10.1, Immature Gran % (Auto) 0.600, Neut % (Auto) 68.8, Lymph % (Auto) 19.4, [place] % (Auto) 8.4, Eos % (Auto) 2.4, Baso % (Auto) 0.4, Absolute Neuts (auto) 9.7 H, Nucleated RBC % 0 11/18/21 04:50: Sodium Cancelled, Potassium Cancelled, Chloride Cancelled, Carbon Dioxide Cancelled, Anion Gap Cancelled, BUN Cancelled, Creatinine Cancelled, Est GFR (MDRD) Af Amer Cancelled, Est GFR (MDRD) Non-Af Cancelled, BUN/Creatinine Ratio Cancelled, Glucose Cancelled, Calcium Cancelled 11/18/21 04:50: Magnesium 2.3 11/18/21 04:50: Sodium 141, Potassium 4.1, Chloride 107, Carbon Dioxide 29.0, Anion Gap 5, BUN 18, Creatinine 0.92, Est GFR (MDRD) Af Amer 112, Est GFR (MDRD) Non-Af 92, BUN/Creatinine Ratio 19.5, Glucose 207 H, Calcium 8.1 L, Total Bilirubin 0.40, Triglycerides 65, Cholesterol 139, LDL Cholesterol 91, VLDL Cholesterol 13, HDL Cholesterol 35 L 11/18/21 06:56: WBC 12.8 H, RBC 4.39 L, Hgb 13.2, Hct 39.8 L, MCV 90.7, MCH 30.1, MCHC 33.2, Plt Count 307, MPV 10.2 Rhythm: EKG: ECHO: Stress Test: Cardiac Cath: PCI: CT Surgery: Holter monitor: EPS: PPM: CXR: Chest CT Scan: Radiography Diagnostic Testing: Radiology Impression Chest X-Ray 11/18/21 01:12 IMPRESSION: Normal x-ray examination of the chest. Electronically Signed: Danya Osborn MD at 1:35 EST Tel , Service support , Charges/Coding Visit Charges Inpatient E&M: 76364 Subs Hosp L3
--- NOTE | 2021-11-18 17:49 | PCS.PANDOC ---
PANDEMIC DOCUMENTATION INITIATED: Date: 07/04/2021 Time: 190
--- NOTE | 2021-11-18 20:24 | PCM.HOSP.N ---
Hospitalist Note It is okay for the patient to use his home ProAir inhaler, at bedside as needed I did review his recent echo results with him at bedside and discussed findings. I encouraged control of blood pressure at home. Patient stated to me that he wants to leave tomorrow.
[2021-11-18] MEDS: Atorvastatin Calcium 80 MG Tablet PO (20:32)
[2021-11-18] MEDS: Acetaminophen 325 MG Tablet 650 MG PO (20:33)
[2021-11-18] MEDS: cloNIDine HCl 0.2 MG Tablet PO (20:33)
[2021-11-18] MEDS: Budesonide Respules 0.5 MG/2 ML AMPUL.NEB. INHALATION (20:42)
[2021-11-18] MEDS: Ipratropium/Albuterol Sulfate 3 ML AMPUL.NEB INHALATION (20:42)
[2021-11-18 21:01] LABS: Bedside Glucose 87 mg/dL (70-110)
--- NOTE | 2021-11-18 22:00 | NURSING ---
2039- pt insisting not to be woken up during the night. states I will throw something at someone if they wake me up during the night.
[2021-11-19 00:55] VITALS: PULSE 65
--- NOTE | 2021-11-19 01:00 | NURSING ---
This rn taking over pts care at this time.
[2021-11-19 03:03] VITALS: PULSE 69
[2021-11-19 03:05] VITALS: BP 133/90; PULSE 75; RESP 18; TEMP 36.8; O2SAT 97
[2021-11-19 06:26] LABS: Absolute Lymphocyte Count 2.44 X10^3/uL (0.83-4.51); Absolute Neutrophil Count 9.7 X10^3/uL (2.0-7.7); Basophil# 0.05 X10^3/uL; Basophil% 0.4 % (0-1); Eosinophil# 0.15 X10^3/uL; Eosinophils% 1.1 % (0-5); Hematocrit 42.2 % (40-54); Hemoglobin 13.9 g/dL (13.0-16.5); Lymphocyte # 2.44 X10^3/ul (0.83-4.51); Lymphocyte % 17.8 % (19-41); Mean Corp Hgb Conc 32.9 g/dL (32-36); Mean Corpuscular Hgb 29.7 pg (27.0-32.0); Mean Corpuscular Volume 90.2 fL (80-94); Mean Platelet Vol. 10.4 fl (6.2-12.0); Monocyte# 1.26 X10^3/uL; Monocyte% 9.2 % (0-10); NRBC Flagged by Analyzer 0 % (0-5); Neutrophil # 9.73 X10^3/uL (2.7-7.7); Neutrophil % 70.9 % (47-70); Platelet Count 309 K/mm3 (150-450); RBC Distribution Width CV 15.2 % (11.6-14.6); RBC Distribution Width SD 49.4 fl (35.1-43.9); Red Blood Count 4.68 M/mm3 (4.6-6.2); White Blood Count 13.7 K/mm3 (4.4-11.0)
[2021-11-19 06:56] LABS: Bedside Glucose 111 mg/dL (70-110)
[2021-11-19 06:57] LABS: Anion Gap 7 (5-15); BUN 13 mg/dL (7-18); Calcium,Total 8.8 mg/dL (8.5-10.1); Chloride 106 mmol/L (98-107); Creatinine, Serum 0.76 mg/dL (0.70-1.30); EST Glomerular Filtration Rate 114 mL/min (>60); Est Glom Filt Rate - Afr Amer 139 mL/min (>60); Glucose 106 mg/dL (74-106); Potassium 3.6 mmol/L (3.5-5.1); Sodium Level 139 mmol/L (136-145)
[2021-11-19 07:23] VITALS: PULSE 68
--- NOTE | 2021-11-19 09:17 | PCM.DC ---
Discharge Instructions Diet Discharge Diet: Low fat / Low cholesterol, 1800 Calorie Control Diet and 2000 mg Sodium Diet Dressing / Incision Call your doctor if you observe: Fever of 101 or Higher, Coldness, Increased Pain, Numbness or Tingling, Change in Color, Inability to urinate, Inability to have a bowel movement, Shortness of breath, Dizziness, Fainting spells, Swelling in the ankles, Chest pain, Prolonged hiccupping, Increased palpitations (irregular heartbeat), Calf discomfort and Uncontrolled pain Follow Up Care Test Results: Test results from this visit will be discussed in further detail at your follow-up appointment, if applicable. Discharge Plan Admission Admit Date/Time: 11/18/21 01:51 Primary Reason for Your Visit: Anterolateral STEMI Attending Provider: Nasim Leblanc Primary Care Provider: Sivan Bowie Discharge Orders/Prescriptions Prescriptions: New atorvastatin 80 mg Tablet 80 mg PO QHS Qty: 30 RF: 2 metoprolol tartrate 25 mg Tablet 25 mg PO BID Qty: 60 RF: 0 Brilinta 90 mg Tablet 90 mg PO BID Qty: 60 RF: 2 Continued (DME) insulin needles (disposable) 30 X 3/4 needle See Rx Instructions .ROUTE .MEDSUPPLY Qty: 1 RF: 0 lisinopril 20 mg tablet 20 mg PO BID Qty: 180 RF: 2 cepajiopacd-uctnoqagy-rbruztzb 200-62.5-25 mcg blister with device 1 inh inhalation DAILY RF: 0 Tresiba FlexTouch U-200 200 unit/mL (3 mL) insulin pen 50 unit subcut QHS Qty: 9 RF: 6 Humalog KwikPen Insulin 200 unit/mL (3 mL) insulin pen 14 unit subcut TID 90 Days Qty: 18.9 RF: 2 aspirin 81 MG tablet,chewable 81 mg PO DAILY Qty: 90 RF: 0 chlorthalidone 25 mg tablet 25 mg PO DAILY RF: 0 spironolactone 25 mg tablet 25 mg PO DAILY RF: 0 budesonide 0.5 mg/2 mL suspension for nebulization 0.5 mg inhalation BID RF: 0 clonidine HCl 0.2 mg tablet 0.2 mg PO BID RF: 0 Trelegy Ellipta 100-62.5-25 mcg Blister With Device 1 inh INHALATION DAILY RF: 0 isosorbide mononitrate 60 mg tablet extended release 24 hr 60 mg PO DAILY RF: 0 amlodipine 10 mg tablet 10 mg PO DAILY RF: 0 ProAir RespiClick 90 mcg/actuation aerosol powdr breath activated 2 inh INHALATION PRN PRN (Reason: Bronchodilation) RF: 0 pen needle, diabetic [BD Ultra-Fine Tomasa Pen Needle] 32 gauge x 5/32 needle 1 ea miscellaneous 4X/DAY Qty: 200 RF: 3 loratadine 10 mg tablet 10 mg PO DAILY Qty: 90 RF: 1 Held metformin 500 mg tablet 500 mg PO BID Qty: 90 RF: 0 Hold Instructions: Hold for 2 days Discontinued atorvastatin 40 mg tablet 40 mg PO QHS RF: 0 metoprolol tartrate 100 mg tablet 100 mg PO BID RF: 0 clopidogrel 75 mg tablet 75 mg PO DAILY RF: 0 Referrals / Follow Up: Eric Flores MD [STAFF PHYSICIAN] - Within 1 Month (For anterior wall ischemia) Sivan Bowie MD [Primary Care Provider] - Within 1 Week (Anterior wall STEMI RECENT) Disposition Disposition (needs filled in before D/C Order can be placed): Home, Self Care
--- NOTE | 2021-11-19 09:21 | PCM.DC.SUM ---
Providers Date of Admission: 11/18/21 Primary Care Physician: Dr. Sivan Bowie MD Reason For Visit: STEMI Diagnosis Discharge Diagnosis (1) ST elevation (STEMI) myocardial infarction: Status: Acute Code(s): I21.3 - ST elevation (STEMI) myocardial infarction of unspecified site (2) Essential hypertension: Status: Chronic Code(s): I10 - Essential (primary) hypertension (3) Diabetes: Status: Acute Code(s): E11.9 - Type 2 diabetes mellitus without complications Qualifiers: Diabetes mellitus complication status: with hyperglycemia Diabetes mellitus intermediate frame tender insulin use: with fpc use Diabetes mellitus type: type 2 Qualified Code(s): E11.65 - Type 2 diabetes mellitus with hyperglycemia; Z79.4 - joint terminal attack controller (current) use of insulin (4) Chronic obstructive pulmonary disease (COPD): Status: Chronic Code(s): J44.9 - Chronic obstructive pulmonary disease, unspecified Qualifiers: COPD type: unspecified COPD Qualified Code(s): J44.9 - Chronic obstructive pulmonary disease, unspecified Medications at Discharge Home Medications aspirin 81 mg PO DAILY #90 tab.chew 12/12/16 Trelegy Ellipta 1 inh INHALATION DAILY 04/28/21 amlodipine 10 mg PO DAILY 04/28/21 budesonide 0.5 mg INHALATION BID 04/28/21 chlorthalidone 25 mg PO DAILY 04/28/21 clonidine HCl 0.2 mg PO BID 04/28/21 isosorbide mononitrate 60 mg PO DAILY 04/28/21 spironolactone 25 mg PO DAILY 04/28/21 metformin 500 mg PO BID #90 tab 05/01/21 insulin needles (disposable) 30 X 3/4 #1 05/25/21 lisinopril 20 mg tablet 20 mg PO BID #180 tab 05/25/21 BD Ultra-Fine Tomasa Pen Needle 32 gauge x 5/32 1 ea MISCELLANEOUS 4X/DAY #200 ea NS 05/27/21 insulin lispro 200 unit/mL (3 mL) subcutaneous pen 14 unit SUBCUT TID 90 Days #18.9 ml 06/01/21 fluticasone fur. 200 mcg-umeclid 62.5 mcg-vilant 25 mcg inhalat.powder 1 inh INHALATION DAILY ea 06/16/21 loratadine 10 mg tablet 10 mg PO DAILY #90 tab 07/04/21 insulin degludec 200 unit/mL (3 mL) subcutaneous pen 50 unit SUBCUT QHS #9 ml 10/06/21 ProAir RespiClick 2 inh INHALATION PRN PRN 11/18/21 atorvastatin 80 mg PO QHS #30 tab 11/18/21 metoprolol tartrate 25 mg PO BID #60 tab 11/18/21 ticagrelor [Brilinta] 90 mg PO BID #60 tab 11/18/21 Hospital Course Summary of Care Provided Hospital Course: The patient came to ER with anterolateral STEMI and underwent emergent cath as per protocol. PCI and stenting of mid LAD, previously stents patent in RCA LAD and circumflex. LVEF about 50%. Thereafter patient admitted to ICU. Patient currently on supine position as per cardiac cath protocol. Right femoral artery sheath removal as per endless bed drum sander protocol. On aspirin and Brilinta. Patient had Integrilin. Fasting profile LDL 91, HDL 35. Atorvastatin increased to 80 mg daily. 2D echo in April 2021 shows EF 65%, trivial MR. 2D echo is done but not reported yet Patient wants to sign AMA. Advised to stay as he needs at least 1 day monitoring for reperfusion arrhythmia or chest pain. He does not agree. He knows the course of SC and he had several in the past. Medications Brilinta, metoprolol and atorvastatin sent to patient pharmacy. Patient already on lisinopril,, aspirin, isosorbide mononitrate at home. His discharge medications were discussed and he understood. Essential HTN Patient on Imdur, lisinopril and clonidine. Metoprolol decreased to 25 mg twice daily. DM type II: Advised to hold Metformin for 1 more days. Accu-Chek before meals and at bedtime on sliding scale Humalog. Insulin degludec 15 units subcu at bedtime daily at home. Patient also history of COPD and is on maintenance inhaler Trelegy at home. Patient continues to smoke. VTE prophylaxis: Patient arterial sheath is removed in afternoon of 11/18/2021. No anticoagulants for at least 24 hours. Patient did not had hematoma. Mild tenderness at the site. Advised not to do exertional work involving lower extremities for 2 to 3 days Discharge medication reconciliation done. Discharge follow-up instructions completed. Discharge process discussed with the patient and all questions were answered to patient's satisfaction. Discharged home Total time spent, exact 35 minutes on discharge meds reconciliation, examination, coordination of care with nurses and ancillary staff, review of imaging and blood test and discussion with the patient on follow-up instructions Physical Exam Narrative Seen and examined Patient did not sign AMA but agreed to stay overnight. Did not had chest pain. monitoring engineer reviewed shows 1 missed heartbeat. General: Alert, Oriented x3, Cooperative, morbid obesity BMI 33.7 kg/m? HEENT: Atraumatic, PERRLA, EOMI, Normocephalic Oral: No Gingival or Mucosal Lesions/ Ulcerations Neck: Supple, No JVD, Negative Carotid Bruits. Surgical scar of C-spine surgery with plate in the past. Lungs: Air entry diminished in bilateral lung bases. Bilateral wheezing improved Cardiovascular: Regular rate, Regular Rhythm, Normal S1, Normal S2, No murmurs Abdomen: Bowel Sounds Present, Soft, Non Tender, Non-Distended : No renal angle tenderness. No suprapubic tenderness. Extremities: No edema, Capillary Refill Less than 3 Seconds Skin: No hematoma at right femoral GROIN site Musculoskeletal spine: Sitting upright. No tenderness over lumbar spine. Neurological: Cranial nerves II-XII grossly intact, DTR 2+/4 and Symmetrical, Neuro grossly intact Psych/Mental Status: Normal Affect, Appropriate. Weight / BMI Weight Weight: 221 lb 5.506 oz Body Mass Index (BMI) 33.6 ABG / Lab / Microbiology Data Result Diagrams: 11/19/21 05:55 11/19/21 05:55 Laboratory: Laboratory Results - last 24 hr 11/18/21 10:55: Troponin I High Sens 25955 H* 11/18/21 11:55: POC Glucose 126 H 11/18/21 16:17: POC Glucose 92 11/18/21 20:30: POC Glucose 87 11/19/21 05:55: WBC 13.7 H, RBC 4.68, Hgb 13.9, Hct 42.2, MCV 90.2, MCH 29.7, MCHC 32.9, RDW Std Deviation 49.4 H, RDW Coeff of Narcisa 15.2 H, Plt Count 309, MPV 10.4, Immature Gran % (Auto) 0.600, Neut % (Auto) 70.9 H, Lymph % (Auto) 17.8 L, [place] % (Auto) 9.2, Eos % (Auto) 1.1, Baso % (Auto) 0.4, Absolute Neuts (auto) 9.7 H, Absolute Lymphs (auto) 2.44, Nucleated RBC % 0 11/19/21 05:55: Sodium 139, Potassium 3.6, Chloride 106, Carbon Dioxide 26.0, Anion Gap 7, BUN 13, Creatinine 0.76, Estim Creat Clear Calc 112.50, Est GFR (MDRD) Af Amer 139, Est GFR (MDRD) Non-Af 114, BUN/Creatinine Ratio 17.0, Glucose 106, Calcium 8.8 11/19/21 06:30: POC Glucose 111 H D/C Instructions Discharge Diet: Low fat / Low cholesterol, 1800 Calorie Control Diet and 2000 mg Sodium Diet Call your doctor if you observe: Fever of 101 or Higher, Coldness, Increased Pain, Numbness or Tingling, Change in Color, Inability to urinate, Inability to have a bowel movement, Shortness of breath, Dizziness, Fainting spells, Swelling in the ankles, Chest pain, Prolonged hiccupping, Increased palpitations (irregular heartbeat), Calf discomfort and Uncontrolled pain Meaningful Use Info Meaningful Use Diagnoses (Choose all that apply): AMI AMI/Post PCI/Angioplasty Aspirin given w/in 24hrs of arrival?: Yes ASA at discharge?: Yes Antiplatelet Therapy at Discharge:: Yes Statins at discharge?: Yes Michael/ARB at discharge?: Yes Beta Christi at discharge?: Yes Done w/ Acute SC measure.: Yes Discharge Plan Admission Admit Date/Time: 11/18/21 01:51 Primary Reason for Your Visit: Anterolateral STEMI Attending Provider: Nasim Leblanc Primary Care Provider: Sivan Bowie Instructions Additional Instructions / Restrictions: Patient Problems: Altered Health Status related to Hospitalization Patient Goals: *Optimal Level of Health *Keep Appointments *Medication Compliance *Remain Safe Discharge Orders/Prescriptions Prescriptions: New atorvastatin 80 mg Tablet 80 mg PO QHS Qty: 30 RF: 2 metoprolol tartrate 25 mg Tablet 25 mg PO BID Qty: 60 RF: 0 Brilinta 90 mg Tablet 90 mg PO BID Qty: 60 RF: 2 Continued (DME) insulin needles (disposable) 30 X 3/4 needle See Rx Instructions .ROUTE .MEDSUPPLY Qty: 1 RF: 0 lisinopril 20 mg tablet 20 mg PO BID Qty: 180 RF: 2 lvzycytsqjd-adsaluadw-adnlafyh 200-62.5-25 mcg blister with device 1 inh inhalation DAILY RF: 0 Tresiba FlexTouch U-200 200 unit/mL (3 mL) insulin pen 50 unit subcut QHS Qty: 9 RF: 6 Humalog KwikPen Insulin 200 unit/mL (3 mL) insulin pen 14 unit subcut TID 90 Days Qty: 18.9 RF: 2 aspirin 81 MG tablet,chewable 81 mg PO DAILY Qty: 90 RF: 0 chlorthalidone 25 mg tablet 25 mg PO DAILY RF: 0 spironolactone 25 mg tablet 25 mg PO DAILY RF: 0 budesonide 0.5 mg/2 mL suspension for nebulization 0.5 mg inhalation BID RF: 0 clonidine HCl 0.2 mg tablet 0.2 mg PO BID RF: 0 Trelegy Ellipta 100-62.5-25 mcg Blister With Device 1 inh INHALATION DAILY RF: 0 isosorbide mononitrate 60 mg tablet extended release 24 hr 60 mg PO DAILY RF: 0 amlodipine 10 mg tablet 10 mg PO DAILY RF: 0 ProAir RespiClick 90 mcg/actuation aerosol powdr breath activated 2 inh INHALATION PRN PRN (Reason: Bronchodilation) RF: 0 pen needle, diabetic [BD Ultra-Fine Tomasa Pen Needle] 32 gauge x 5/32 needle 1 ea miscellaneous 4X/DAY Qty: 200 RF: 3 loratadine 10 mg tablet 10 mg PO DAILY Qty: 90 RF: 1 Held metformin 500 mg tablet 500 mg PO BID Qty: 90 RF: 0 Hold Instructions: Hold for 2 days Discontinued atorvastatin 40 mg tablet 40 mg PO QHS RF: 0 metoprolol tartrate 100 mg tablet 100 mg PO BID RF: 0 clopidogrel 75 mg tablet 75 mg PO DAILY RF: 0 Referrals / Follow Up: Eric Flores MD [STAFF PHYSICIAN] - Within 1 Month (For anterior wall ischemia) Sivan Bowie MD [Primary Care Provider] - Within 1 Week (Anterior wall STEMI RECENT) Disposition Disposition (needs filled in before D/C Order can be placed): Home, Self Care Charges/Coding Visit Charges Inpatient E&M: 88028 Disch Hosp
[2021-11-19 09:44] LABS: ACT Activated Clotting Time 124 sec (74-137)
--- NOTE | 2021-11-19 09:56 | NURSING ---
Pt refused all care this am until discharge. This RN stated the importance of all medications post stent placement. Pt verbalized understanding but refused to take am medications prior to discharge despite being the holiday.
[2021-11-21 14:32] LABS: Pathologist Review Reviewed
== END 2021-11-19 09:56 | disposition home or self-care (01) | DRG 247 ==
LOC: ED 01:11 → ICU 01:41 → PCU 17:33
PROVIDERS: Admitting Provider Hospitalist; Emergency Provider Emergency Medicine; PCP Internal Medicine; Referring Provider Internal Medicine Interventional Cardiology; Visit Provider Internal Medicine
DX: I21.02 ST elevation (STEMI) myocardial infarction involving left anterior descending coronary artery (principal); E11.65 Type 2 diabetes mellitus with hyperglycemia; I10 Essential (primary) hypertension; I25.10 Atherosclerotic heart disease of native coronary artery without angina pectoris; E78.5 Hyperlipidemia, unspecified; I25.2 Old myocardial infarction; J44.9 Chronic obstructive pulmonary disease, unspecified; I25.5 Ischemic cardiomyopathy; M06.9 Rheumatoid arthritis, unspecified; G44.009 Cluster headache syndrome, unspecified, not intractable; E66.01 Morbid (severe) obesity due to excess calories; Z68.33 Body mass index [BMI] 33.0-33.9, adult; Z87.01 Personal history of pneumonia (recurrent); Z91.19 Patient's noncompliance with other medical treatment and regimen; Z95.5 Presence of coronary angioplasty implant and graft; Z79.4 Long term (current) use of insulin; Z79.84 Long term (current) use of oral hypoglycemic drugs; Z79.899 Other long term (current) drug therapy; F17.210 Nicotine dependence, cigarettes, uncomplicated
CPT/HCPCS: 36415; 71045; 80048; 80053; 80061; 82962; 83735; 84484; 85025; 85027; 85347; 85610; 85730; 92941; 93005; 93306; 93458; 94640; 97802; 99152; 99153; 99282; J7030; J7040; Q9957; Q9967; A4216; C1725; C1769; C1874; C1887; C9606; J1327; J2405

== ENCOUNTER 2021-12-20 16:23 | Emergency (ER) | payer OTHER, SELFPAY ==
[2021-06-01 14:28] VITALS: BMI 35.6
[2021-12-20 16:24] VITALS: BP 167/110; PULSE 80; RESP 20; TEMP 36.1; O2SAT 97; BMI 31.6
--- NOTE | 2021-12-20 16:44 | RAD_ITS ---
STUDY: X-RAY CHEST REASON FOR EXAM: Male, 51 years old. Chest pain TECHNIQUE: 2 AP portable views COMPARISON: 11/18/2021 FINDINGS: EKG leads overlie the chest The lungs are clear and expanded. Small left pleural effusion has developed since the previous study. Normal size heart. Normal mediastinum and soniya. Normal visualized pulmonary arteries. Normal visualized aortic arch and descending thoracic aorta. Normal visualized thoracic spine. Normal visualized ribs, clavicles, and shoulders. There is no demonstrated abnormality of the visualized soft tissue structures of the upper abdomen. RAD/Chest 1 View (Portable) IMPRESSION: No acute infiltrate or groundglass opacifications. Small left pleural effusion has developed since the previous study. Electronically Signed: Jeremiah Comer MD at 17:22 EST ,
--- NOTE | 2021-12-20 16:44 | EKG12_ITS ---
Test Reason : CP Blood Pressure : / mmHG Vent. Rate : 076 BPM Atrial Rate : 076 BPM P-R Int : 182 ms QRS Dur : 112 ms QT Int : 394 ms P-R-T Axes : 060 056 077 degrees QTc Int : 443 ms Normal sinus rhythm Anterior infarct , age undetermined T wave abnormality, consider lateral ischemia Abnormal ECG Confirmed by MATT EVANGELISTA, GERTRUDIS ([id number]), communications editor EVELIO CURRY ([id number]) on 12/22/2021 11:00:50 AM Referred By: GUICHO/JAMES Confirmed By:RANDI GUTIERREZ MD
--- NOTE | 2021-12-20 16:45 | ED.VIS.CHEST ---
HPI History of Present Illness Chief Complaint: Chest Pain Informant: patient Onset/Context/Timing Onset: Days (4 to 5 days) Activity at onset: gradual Timing: Waxes and wanes Quality: Positive for Aching Location: Substernal Current Severity: Mild Maximum Severity: Severe Narrative Narrative: Patient presents secondary to chest pain. Patient has had multiple prior MIs, most recent one being November 18. He has he believes 8 cardiac stents. Patient was seen in the cardiology office today for follow-up. He reports having an aching sensation in his chest over the past 4 to 5 days. They did an EKG in the office. Patient states he sneezed and when he did that his chest pain got significantly worse. It is now coming back down. He was sent down from the cardiology office for evaluation. He is currently on Brilinta. He did take his aspirin this morning. PFSH PFSH Medical History Asthma Atherosclerosis of [place] coronary artery of [place] heart without angina pectoris Chronic obstructive pulmonary disease (COPD) Cluster headache Community acquired pneumonia COPD (chronic obstructive pulmonary disease) Diabetes Headache History of non-ST elevation myocardial infarction (NSTEMI) (11/22/20) Hyperlipidemia Ischemic cardiomyopathy Migraine Myocardial infarct Nicotine dependence Non-ST elevation [place] (NSTEMI) Obesity Obesity (BMI 30.0-34.9) Smoker Home Medications aspirin 81 mg PO DAILY #90 tab.chew 12/12/16 [Rx Last Taken 04/28/21] amlodipine 10 mg PO DAILY 04/28/21 [History Last Taken 04/28/21] budesonide 0.5 mg INHALATION BID 04/28/21 [History Last Taken 04/28/21] chlorthalidone 25 mg PO DAILY 04/28/21 [History Last Taken 04/28/21] clonidine HCl 0.2 mg PO BID 04/28/21 [History Last Taken 04/28/21] isosorbide mononitrate 60 mg PO DAILY 04/28/21 [History Last Taken 04/28/21] spironolactone 25 mg PO DAILY 04/28/21 [History Last Taken 04/28/21] metformin 500 mg PO BID #90 tab 05/01/21 [Rx Last Taken Unknown] insulin needles (disposable) 30 X 3/4 #1 05/25/21 [History Last Taken Unknown] lisinopril 20 mg tablet 20 mg PO BID #180 tab 05/25/21 [Rx Last Taken Unknown] BD Ultra-Fine Tomasa Pen Needle 32 gauge x 1 ea MISCELLANEOUS 4X/DAY #200 ea NS 05/27/21 [Rx Last Taken Unknown] insulin lispro 200 unit/mL (3 mL) subcutaneous pen 14 unit SUBCUT TID 90 Days #18.9 ml 06/01/21 [Rx Last Taken Unknown] fluticasone fur. 200 mcg-umeclid 62.5 mcg-vilant 25 mcg inhalat.powder 1 inh INHALATION DAILY ea 06/16/21 [History Last Taken Unknown] loratadine 10 mg tablet 10 mg PO DAILY #90 tab 07/04/21 [Rx Last Taken Unknown] insulin degludec 200 unit/mL (3 mL) subcutaneous pen 50 unit SUBCUT QHS #9 ml 10/06/21 [Rx Last Taken Unknown] ProAir RespiClick 2 inh INHALATION PRN PRN 11/18/21 [History Last Taken Unknown] atorvastatin 80 mg PO QHS #30 tab 11/18/21 [Rx Last Taken Unknown] metoprolol tartrate 25 mg PO BID #60 tab 11/18/21 [Rx Last Taken Unknown] ticagrelor [Brilinta] 90 mg PO BID #60 tab 11/18/21 [Rx Last Taken Unknown] Allergy/AdvReac Type Severity Reaction Status Date / Time amoxicillin trihydrate Allergy Rash Verified 12/20/21 16:41 [From Augmentin] potassium clavulanate Allergy Rash Verified 12/20/21 16:41 [From Augmentin] codeine AdvReac Nausea Verified 12/20/21 16:41 Family History Sister Myocardial infarction, Onset Age: 41 Diabetes Mother COPD (chronic obstructive pulmonary disease) Asthma Rheumatoid arthritis CVA (cerebral vascular accident) Hypertension Grandmother Diabetes Surgical History History of appendectomy History of coronary artery stent placement (11/18/21) History of hernia repair (2008) History of neck surgery History of umbilical hernia repair (1971) Social History Smoking Status: Current every day smoker tobacco type: cigarettes Tobacco: How many years used: 20 Electronic Cigarette Use: not used second hand exposure: Yes alcohol intake: current alcohol intake frequency: 0-2 drinks per day Alcohol type: beer substance use type: does not use caffeine: Yes Type: carbonated beverages Number of servings: 2 and tea Number of servings: 6 what type of physical activity do you participate in: none ROS ROS ED Constitutional Constitutional ED: Denies chills or fever(s) Eyes Eyes: Denies change in vision ENT ENT ED: Denies sore throat Cardiovascular Cardiovascular: Reports chest pain Respiratory/Chest Respiratory/Chest: Reports dyspnea; Denies cough Gastrointestinal Gastrointestinal: Denies abdominal pain, diarrhea, nausea or vomiting Genitourinary Genitourinary ED: Denies dysuria Musculoskeletal Musculoskeletal: Denies back pain Integumentary Denies rash Neurologic Neurologic: Reports weakness and other Details: Increase generalized fatigue ; Denies headache(s) Psychiatric Psychiatric: Denies anxiety or depression Allergic/Immunologic Allergic/Immunologic ED: Denies urticaria EXAM Physical Exam Const Vital Signs: 12/20/21 16:24 12/20/21 16:53 12/20/21 17:41 Temperature 97.0 F L Temperature Source Temporal Pulse Rate 80 75 77 Respiratory Rate 20 H 17 24 H Blood Pressure 167/110 H 147/95 H 150/101 H Blood Pressure Mean 129 112 117 Pulse Ox 97 96 96 Oxygen Delivery Method Room Air Room Air Room Air 12/20/21 18:49 12/20/21 19:12 Temperature Temperature Source Pulse Rate 75 81 Respiratory Rate 16 22 H Blood Pressure 152/102 H 131/113 H Blood Pressure Mean 118 119 Pulse Ox 94 95 Oxygen Delivery Method Room Air Room Air Positive well nourished and well developed General Appearance ED: well developed HEENT normocephalic and atraumatic Eyes PERRL and EOMs intact bilaterally Neck supple Chest Wall inspection of chest normal and palpation of chest normal Resp normal respiratory effort Resp Narrative: Mild expiratory wheezes bilaterally. Cardio regular rate and regular rhythm GI normal to inspection, nondistended, normoactive bowel sounds, soft to palpation and non-tender Extremity normal to inspection Neuro oriented x3 Sensorium / Orientation: awake and alert Psych mental status grossly normal Skin no rashes or lesions noted Heart Score History: Slightly/Non-Suspicious ECG: Nonspecific Repolarization Age: >45 - <65 years Risk Factors: >/= 3 Risk Factors or History of CAD Score: 4 MDM MDM MDM Narrative Medical decision making narrative: EKG, chest x-ray, lab work obtained. Lab Data Attestation: I reviewed the patient's lab results. Labs: Laboratory Results - last 24 hr 12/20/21 12/20/21 12/20/21 17:00 17:00 19:02 WBC 10.0 RBC 4.88 Hgb 14.8 Hct 43.1 MCV 88.3 MCH 30.3 MCHC 34.3 RDW Std Deviation 44.5 H RDW Coeff of Narcisa 13.7 Plt Count 344 MPV 9.8 Immature Gran % (Auto) 0.400 Neut % (Auto) 56.5 Lymph % (Auto) 25.5 [place] % (Auto) 10.3 H Eos % (Auto) 6.8 H Baso % (Auto) 0.5 Absolute Neuts (auto) 5.6 Absolute Lymphs (auto) 2.54 Nucleated RBC % 0 Sodium 140 Potassium 3.3 L Chloride 107 Carbon Dioxide 27.0 Anion Gap 6 BUN 20 H Creatinine 0.96 Estim Creat Clear Calc 89.06 Est GFR (MDRD) Af Amer 107 Est GFR (MDRD) Non-Af 89 BUN/Creatinine Ratio 20.9 H Glucose 86 Calcium 8.9 Troponin I High Sens 99 H 96 H Radiography Chest X-Ray - ED: 1 View, Read by ED Physician, Normal, Heart, Lungs and Mediastinum Diagnostic Testing: Clinical Impression(s) from Imaging Studies Chest X-Ray 12/20/21 16:44 IMPRESSION: No acute infiltrate or groundglass opacifications. Small left pleural effusion has developed since the previous study. Electronically Signed: Jeremiah Comer MD at 17:22 EST , EKG Initial EKG: Attestation: I personally reviewed and interpreted this EKG as follows: Interpretation: Sinus Rhythm (Sinus at 76. T inversions noted in the lateral leads similar to prior study.) Treatment and Re-Evaluation Comments:: Initial lab work reviewed. Potassium slightly low at 3.3. Initial troponin 99. Dr. Flores came to the emergency room and reviewed the labs. He went and reviewed the patient's last cardiac cath images. He requested a delta troponin and if not increase by more than 20 points patient was stable to go home. Repeat troponin is 96. Plan will be discharged to home and follow-up with cardiology. Patient will be given oral potassium replacement. Discharge Plan Triage Chief Complaint: Chest Pain ED Provider: Batsheva Ray Dx/Rx/DC Orders Clinical Impression: Chest pain Instructions: ED Chest Pain, Uncertain Cause Prescriptions: No Action (DME) insulin needles (disposable) 30 X 3/4 needle See Rx Instructions .ROUTE .MEDSUPPLY Qty: 1 RF: 0 lisinopril 20 mg tablet 20 mg PO BID Qty: 180 RF: 2 ihbufbritfj-vlasfmjjx-qsqacbxp 200-62.5-25 mcg blister with device 1 inh inhalation DAILY RF: 0 Tresiba FlexTouch U-200 200 unit/mL (3 mL) insulin pen 50 unit subcut QHS Qty: 9 RF: 6 Humalog KwikPen Insulin 200 unit/mL (3 mL) insulin pen 14 unit subcut TID 90 Days Qty: 18.9 RF: 2 aspirin 81 MG tablet,chewable 81 mg PO DAILY Qty: 90 RF: 0 chlorthalidone 25 mg tablet 25 mg PO DAILY RF: 0 spironolactone 25 mg tablet 25 mg PO DAILY RF: 0 budesonide 0.5 mg/2 mL suspension for nebulization 0.5 mg inhalation BID RF: 0 clonidine HCl 0.2 mg tablet 0.2 mg PO BID RF: 0 isosorbide mononitrate 60 mg tablet extended release 24 hr 60 mg PO DAILY RF: 0 amlodipine 10 mg tablet 10 mg PO DAILY RF: 0 metformin 500 mg tablet 500 mg PO BID Qty: 90 RF: 0 Hold Instructions: Hold for 2 days ProAir RespiClick 90 mcg/actuation aerosol powdr breath activated 2 inh INHALATION PRN PRN (Reason: Bronchodilation) RF: 0 atorvastatin 80 mg Tablet 80 mg PO QHS Qty: 30 RF: 2 metoprolol tartrate 25 mg Tablet 25 mg PO BID Qty: 60 RF: 0 Brilinta 90 mg Tablet 90 mg PO BID Qty: 60 RF: 2 pen needle, diabetic [BD Ultra-Fine Tomasa Pen Needle] 32 gauge x 5/32 needle 1 ea miscellaneous 4X/DAY Qty: 200 RF: 3 loratadine 10 mg tablet 10 mg PO DAILY Qty: 90 RF: 1 Primary Care Provider: Sivan Bowie Referrals: Eric Flores MD [STAFF PHYSICIAN] - 1-2 Weeks Sivan Bowie MD [Primary Care Provider] - Disposition Disposition: Home, Self Care
[2021-12-20 16:53] VITALS: BP 147/95; PULSE 75; RESP 17; O2SAT 96
[2021-12-20 17:15] LABS: Absolute Lymphocyte Count 2.54 X10^3/uL (0.83-4.51); Absolute Neutrophil Count 5.6 X10^3/uL (2.0-7.7); Basophil# 0.05 X10^3/uL; Basophil% 0.5 % (0-1); Eosinophil# 0.68 X10^3/uL; Eosinophils% 6.8 % (0-5); Hematocrit 43.1 % (40-54); Hemoglobin 14.8 g/dL (13.0-16.5); Lymphocyte # 2.54 X10^3/ul (0.83-4.51); Lymphocyte % 25.5 % (19-41); Mean Corp Hgb Conc 34.3 g/dL (32-36); Mean Corpuscular Hgb 30.3 pg (27.0-32.0); Mean Corpuscular Volume 88.3 fL (80-94); Mean Platelet Vol. 9.8 fl (6.2-12.0); Monocyte# 1.03 X10^3/uL; Monocyte% 10.3 % (0-10); NRBC Flagged by Analyzer 0 % (0-5); Neutrophil # 5.62 X10^3/uL (2.7-7.7); Neutrophil % 56.5 % (47-70); Platelet Count 344 K/mm3 (150-450); RBC Distribution Width CV 13.7 % (11.6-14.6); RBC Distribution Width SD 44.5 fl (35.1-43.9); Red Blood Count 4.88 M/mm3 (4.6-6.2)
[2021-12-20 17:37] LABS: Anion Gap 6 (5-15); BUN 20 mg/dL (7-18); BUN/Creat Ratio 20.9 RATIO (10-20); Calcium,Total 8.9 mg/dL (8.5-10.1); Chloride 107 mmol/L (98-107); Creatinine, Serum 0.96 mg/dL (0.70-1.30); EST Glomerular Filtration Rate 89 mL/min (>60); Est Glom Filt Rate - Afr Amer 107 mL/min (>60); Estimated Creatinine Clearance 89.06 ml/min; Glucose 86 mg/dL (74-106); Potassium 3.3 mmol/L (3.5-5.1); Sodium Level 140 mmol/L (136-145); Troponin-I HS 99 pg/mL (3.0-78.0)
[2021-12-20 17:41] VITALS: BP 150/101; PULSE 77; RESP 24; O2SAT 96
[2021-12-20 18:49] VITALS: BP 152/102; PULSE 75; RESP 16; O2SAT 94
[2021-12-20 19:12] VITALS: BP 131/113; PULSE 81; RESP 22; O2SAT 95
[2021-12-20 19:25] LABS: Troponin-I HS 96 pg/mL (3.0-78.0)
[2021-12-20] MEDS: Potassium Chloride Oral Tablet 20 MEQ 40 MEQ PO (19:46)
== END 2021-12-20 19:49 | disposition home or self-care (01) ==
PROVIDERS: Emergency Provider Emergency Medicine; PCP Internal Medicine; Visit Provider Emergency Medicine
DX: R07.9 Chest pain, unspecified (principal); J44.9 Chronic obstructive pulmonary disease, unspecified; E11.9 Type 2 diabetes mellitus without complications; Z79.4 Long term (current) use of insulin; I25.10 Atherosclerotic heart disease of native coronary artery without angina pectoris; E78.5 Hyperlipidemia, unspecified; I25.5 Ischemic cardiomyopathy; F17.210 Nicotine dependence, cigarettes, uncomplicated; I25.2 Old myocardial infarction; Z87.01 Personal history of pneumonia (recurrent); G43.909 Migraine, unspecified, not intractable, without status migrainosus; E66.9 Obesity, unspecified; Z79.82 Long term (current) use of aspirin; Z79.899 Other long term (current) drug therapy; Z95.5 Presence of coronary angioplasty implant and graft; Z68.31 Body mass index [BMI] 31.0-31.9, adult
CPT/HCPCS: 71045; 80048; 84484; 85025; 93005; 99285; A4216

== ENCOUNTER 2022-01-17 05:52 | Outpatient (CLI) | payer OTHER, SELFPAY ==
[2021-06-01 14:28] VITALS: BMI 35.6
--- NOTE | 2022-01-17 17:43 | STRESSREP ---
Stress Test Report Pharmacologic myocardial perfusion stress test. 51-year-old man with a history of coronary artery disease status post previous non-ST elevation myocardial infarction. Medications aspirin, amlodipine, chlorthalidone, clonidine, spironolactone, Metformin, lisinopril, atorvastatin. Stress protocol: Resting EKG demonstrates normal sinus rhythm with a rate of 73 bpm incomplete left bundle branch block with T wave inversions noted in leads II, III and aVF V5 and V6. Resting blood pressure is 138/100 mmHg. 0.4 mg of regadenoson was infused per usual protocol followed by rapid venous saline flush injection continuous EKG monitoring was performed. The maximum heart rate attained was 99 bpm which was 58% of max impact at heart rate the maximum workload was 1 metabolic equivalent. At rest there were no ST or T wave changes noted to suggest ischemia. The T wave inversions noted at rest denoted above were present. At peak infusion there was no worsening of the above. The peak blood pressure is 148/94 mmHg. Myocardial perfusion protocol. 11.1 mCi of technetium 99m sestamibi was injected at rest. 0.4 mg of regadenoson was infused per usual protocol. At peak infusion 33.8 mCi of technetium 99m sestamibi was injected stress images were obtained stress and rest images were reconstructed and compared in the short axis vertical long and horizontal long axis. Gated images were also obtained. Perfusion SPECT analysis: Review of the stress images demonstrate normal uptake of tracer noted in all areas of the myocardium except for the apex which has mild reduction of perfusion noted on the stress images. The resting images demonstrate mild perfusion defect noted in the apex as well. The rest of the images appear to be normally perfused. The above is suggestive of a previous apical infarct. Gated SPECT analysis: The gated ejection fraction is 44%. Conclusion: Pharmacologic myocardial perfusion stress test with evidence of previous apical infarct. No ischemia noted. Mild cardiomyopathy present.
== END 2022-01-17 23:59 | disposition home or self-care (01) ==
PROVIDERS: PCP Internal Medicine; Referring Provider Nurse Practitioner Gerontology; Visit Provider Nurse Practitioner Gerontology
DX: R07.9 Chest pain, unspecified (principal)
CPT/HCPCS: 78452; 93017; A9500; A4216; J2785

== ENCOUNTER 2022-01-18 09:10 | Outpatient (CLI) | payer OTHER, SELFPAY ==
[2021-06-01 14:28] VITALS: BMI 35.6
[2022-01-18 10:12] LABS: AST(SGOT) 12 U/L (15-37); Alanine Aminotransfer ALT/SGPT 21 U/L (16-61); Albumin, Serum 3.5 g/dL (3.2-5.0); Alkaline Phosphatase 89 U/L (45-117); Bilirubin, Direct 0.11 mg/dL (0.00-0.30); Cholesterol 125 mg/dL (200); High Density Lipoprotein 41 mg/dL; Protein, Total 7.5 g/dL (6.4-8.2); Triglycerides 68 mg/dL; Very Low Density Lipoprotein 14 mg/dL (5-40)
== END 2022-01-18 23:59 | disposition home or self-care (01) ==
LOC: LABSPEC 09:11
PROVIDERS: PCP Internal Medicine; Visit Provider Nurse Practitioner Gerontology
DX: E78.5 Hyperlipidemia, unspecified (principal)
CPT/HCPCS: 36415; 80061; 80076

== ENCOUNTER 2022-04-27 07:10 | Observation (INO) | payer OTHER, SELFPAY ==
[2021-06-01 14:28] VITALS: BMI 35.6
[2022-04-27] VITALS (13 sets, daily range): BP systolic 134–181; BP diastolic 80–117; PULSE 60–85; RESP 16–20; TEMP 36.5–36.7; O2SAT 94–98; BMI 32.8; BMI 32.1
--- NOTE | 2022-04-27 07:21 | EKG12_ITS ---
Test Reason : CP Blood Pressure : / mmHG Vent. Rate : 075 BPM Atrial Rate : 075 BPM P-R Int : 180 ms QRS Dur : 110 ms QT Int : 394 ms P-R-T Axes : 053 -22 042 degrees QTc Int : 439 ms Normal sinus rhythm Normal ECG Confirmed by BIRGIT EVANGELISTA, GENE ([id number]), news videotape editor EVELIO CURRY ([id number]) on 05/01/2022 10:12:00 AM Referred By: Confirmed By:GENE GENAO MD
--- NOTE | 2022-04-27 07:21 | RAD_ITS ---
STUDY: X-RAY CHEST REASON FOR EXAM: Male, 51 years old. Chest pain TECHNIQUE: Single AP portable view of the chest. COMPARISON: Comparison is made with prior study of 12/20/2021. FINDINGS: EKG electrodes are seen. Residual blunting of the left costophrenic angle with persistent increased markings at the left lung base suggestive of either atelectasis and/or left basilar scarring. The right lung is clear. There is no demonstrated pleural abnormality. Normal size heart. Normal mediastinum and soniya. Normal visualized pulmonary arteries. Normal visualized aortic arch and descending thoracic aorta. Normal visualized thoracic spine. Prior fusion of the lower cervical spine. There is no demonstrated abnormality of the visualized soft tissue structures of the upper abdomen. RAD/Chest 1 View (Portable) IMPRESSION: There is blunting of the left costophrenic angle with mild increased markings at the left lung base suggestive of either atelectasis and/or scarring. Electronically Signed: Jin Woodall MD at 8:52 EDT ,
--- NOTE | 2022-04-27 07:21 | EDS_ITS ---
HPI History of Present Illness Chief Complaint: Chest Pain Informant: patient Onset/Context/Timing Onset: Today (About 45 minutes prior to arrival) Activity at onset: sudden, onset and rest (At work, standing without activity at the time) Timing: Continuous Quality: Positive for Dull (Likely severe cramp) Location: Substernal (Without radiation) Current Severity: Gone Maximum Severity: Severe Worsened By: Nothing; Not Worsened By Breathing Relieved By: NTG Associated Symptoms: Negative for Nausea, Vomiting, Diaphoresis, Dyspnea, Lightheadedness and Palpitations Narrative Narrative: Patient with prior history of coronary disease with stents, the last of which was placed on the last day 2020 about 6 months ago, presenting with a significant episode of chest discomfort, he took a nitroglycerin and waited 5 minutes but nothing happened so he took another 1 and after 5 minutes nothing else happened so he called for a ride to the hospital and while he was waiting for it the discomfort eased and eventually went away. The total event was maybe 15 or 20 minutes. He denies associated symptoms and feels fine now, and no recent illness and he felt well before this. No recent travel out of the area. Already took his aspirin this morning 81 mg. He states he gets this discomfort from time to time but not very often and usually very mild and if he takes a nitroglycerin and it goes away and is no longer an issue. Today was worse and more persistent/resistant to going away. Recent Illness/Hospitalization: No PE Risk Factors: Negative for Recent Travel/Surgery, Recent Immobilization, Prior DVT or PE, Cancer and OCP + Smoking + >/=35 PFSH PFSH Medical History Asthma Atherosclerosis of [place] coronary artery of [place] heart without angina pectoris Chronic obstructive pulmonary disease (COPD) Cluster headache Community acquired pneumonia COPD (chronic obstructive pulmonary disease) Coronary artery disease Diabetes Headache History of non-ST elevation myocardial infarction (NSTEMI) (11/22/20) Hyperlipidemia Insulin dependent diabetes mellitus Ischemic cardiomyopathy Migraine Myocardial infarct Nicotine dependence Non-ST elevation PR (NSTEMI) Obesity Obesity (BMI 30.0-34.9) Smoker Home Medications aspirin 81 mg PO DAILY #90 tab.chew 12/12/16 [Rx Last Taken 04/28/21] amlodipine 10 mg PO DAILY 04/28/21 [History Last Taken 04/28/21] budesonide 0.5 mg INHALATION BID 04/28/21 [History Last Taken 04/28/21] chlorthalidone 25 mg PO DAILY 04/28/21 [History Last Taken 04/28/21] clonidine HCl 0.2 mg PO BID 04/28/21 [History Last Taken 04/28/21] spironolactone 25 mg PO DAILY 04/28/21 [History Last Taken 04/28/21] insulin needles (disposable) 30 X 3/4 #1 05/25/21 [History Last Taken Unknown] BD Ultra-Fine Tomasa Pen Needle 32 gauge x 1 ea MISCELLANEOUS 4X/DAY #200 ea NS 05/27/21 [Rx Last Taken Unknown] insulin lispro 200 unit/mL (3 mL) subcutaneous pen 14 unit SUBCUT TID 90 Days #18.9 ml 06/01/21 [Rx Last Taken Unknown] fluticasone fur. 200 mcg-umeclid 62.5 mcg-vilant 25 mcg inhalat.powder 1 inh INHALATION DAILY ea 06/16/21 [History Last Taken Unknown] loratadine 10 mg tablet 10 mg PO DAILY #90 tab 07/04/21 [Rx Last Taken Unknown] ProAir RespiClick 2 inh INHALATION PRN PRN 11/18/21 [History Last Taken Unknown] atorvastatin 80 mg PO QHS #30 tab 11/18/21 [Rx Last Taken Unknown] nitroglycerin 0.4 mg sublingual tablet 0.4 mg SUBLINGUAL Q5M PRN #25 tab 12/21/21 [Rx Last Taken Unknown] isosorbide mononitrate 60 mg tablet,extended release 24 hr 60 mg PO BID #60 tab 01/13/22 [Rx Last Taken Unknown] metoprolol tartrate 50 mg tablet 50 mg PO BID #60 tab 01/13/22 [Rx Last Taken Unknown] clopidogrel 75 mg tablet 75 mg PO DAILY #90 tab 03/08/22 [Rx Last Taken Unknown] lisinopril 20 mg tablet 20 mg PO BID #180 tab 03/23/22 [Rx Last Taken Unknown] insulin degludec 200 unit/mL (3 mL) subcutaneous pen 50 unit SUBCUT QHS #9 ml 03/30/22 [Rx Last Taken Unknown] Allergy/AdvReac Type Severity Reaction Status Date / Time amoxicillin trihydrate Allergy Rash Verified 04/27/22 07:13 [From Augmentin] potassium clavulanate Allergy Rash Verified 04/27/22 07:13 [From Augmentin] codeine AdvReac Nausea Verified 04/27/22 07:13 Family History Sister Myocardial infarction, Onset Age: 41 Diabetes Mother COPD (chronic obstructive pulmonary disease) Asthma Rheumatoid arthritis CVA (cerebral vascular accident) Hypertension Grandmother Diabetes Surgical History History of appendectomy History of coronary artery stent placement (11/18/21) History of hernia repair (2008) History of neck surgery History of umbilical hernia repair (1971) Social History Smoking Status: Current every day smoker tobacco type: cigarettes Tobacco: How many years used: 20 Electronic Cigarette Use: not used second hand exposure: Yes alcohol intake: current alcohol intake frequency: 0-2 drinks per day Alcohol type: beer substance use type: does not use caffeine: Yes Type: carbonated beverages Number of servings: 2 and tea Number of servings: 6 what type of physical activity do you participate in: none ROS ROS ED Constitutional Constitutional ED: Denies chills or fever(s) Eyes Eyes: Denies change in vision or diplopia ENT ENT ED: Denies rhinorrhea or sore throat Cardiovascular Cardiovascular: Reports as per HPI and chest pain; Denies claudication or palpitations Respiratory/Chest Respiratory/Chest: Denies cough or dyspnea Gastrointestinal Gastrointestinal: Denies abdominal pain, diarrhea, nausea or vomiting Genitourinary Genitourinary ED: Denies dysuria or hematuria Musculoskeletal Musculoskeletal: Denies back pain or neck pain Integumentary Denies abscess or rash Neurologic Neurologic: Denies headache(s), paresthesias or weakness Psychiatric Psychiatric: Denies anxiety or suicidal thoughts EXAM Physical Exam Const Vital Signs: 04/27/22 07:11 04/27/22 07:18 04/27/22 07:26 Temperature 97.7 F L Temperature Source Oral Pulse Rate 76 Respiratory Rate 20 H Respiratory Effort Normal Non-Labored Respiratory Pattern Normal Blood Pressure 146/80 H Blood Pressure Mean 102 Pulse Ox 95 Oxygen Delivery Method Room Air Room Air 04/27/22 08:25 Temperature Temperature Source Pulse Rate Respiratory Rate Respiratory Effort Respiratory Pattern Blood Pressure 151/91 H Blood Pressure Mean 111 Pulse Ox Oxygen Delivery Method Positive well nourished and well developed General Appearance ED: well developed and NAD HEENT Reports moist mucous membranes normocephalic and atraumatic Eyes PERRL and EOMs intact bilaterally Neck full ROM and supple Resp normal respiratory effort Resp Narrative: Clear except for slight end expiratory wheezes Effort and Inspection: able to speak in complete sentences Cardio regular rate, regular rhythm and no murmurs GI non-tender and non-distended Auscultation: normoactive bowel sounds Palpation: soft Back/Spine no CVA tenderness General Back: other FROM Extremity normal to inspection and no calf tenderness General Extremety ED: Negative for edema, pulses abnormal or tenderness General Extremity: Negative for edema or pulses abnormal Neuro oriented x3, CN's II-XII intact bilaterally and no sensory deficits noted Sensorium / Orientation: awake and alert Motor Exam: strength 5/5 throughout Skin no rashes or lesions noted and no wounds Heart Score History: Moderately Suspicious ECG: Normal Age: >45 - <65 years Risk Factors: >/= 3 Risk Factors or History of CAD Troponin: >1 - <3 Normal Limit Score: 5 MDM MDM MDM Narrative Medical decision making narrative: Patient had a stress test January 17, pharmacologic myocardial perfusion, negative for inducible ischemia, he had findings of an apical infarct, and ejection fraction of about 44%. However, initial troponin slightly elevated here. Discussed with Dr. Roberts, he agrees with starting the patient on heparin and admitted into the hospital for further evaluation and probable heart catheterization given that he is a heavy smoker and had recent stents. Patient remains clinically and hemodynamically stable in the emergency department without recurrent discomfort. Lab Data Attestation: I reviewed the patient's lab results. Labs: Laboratory Results - last 24 hr 04/27/22 04/27/22 07:20 07:20 WBC 14.6 H RBC 4.94 Hgb 14.8 Hct 44.1 MCV 89.3 MCH 30.0 MCHC 33.6 RDW Std Deviation 45.2 H RDW Coeff of Narcisa 14.0 Plt Count 270 MPV 10.0 Immature Gran % (Auto) 0.700 Neut % (Auto) 66.9 Lymph % (Auto) 21.6 [place] % (Auto) 9.2 Eos % (Auto) 1.3 Baso % (Auto) 0.3 Absolute Neuts (auto) 9.8 H Absolute Lymphs (auto) 3.16 Nucleated RBC % 0 Sodium 137 Potassium 3.4 L Chloride 102 Carbon Dioxide 30.0 Anion Gap 5 BUN 16 Creatinine 0.99 Estim Creat Clear Calc 86.36 Est GFR (MDRD) Af Amer 103 Est GFR (MDRD) Non-Af 85 BUN/Creatinine Ratio 16.2 Glucose 119 H Calcium 9.1 Troponin I High Sens 81 H Radiography Chest X-Ray - ED: 1 View, Read by ED Physician and No Acute Disease Rhythm Strip Rhythm Strip: Sinus Rhythm Rate: 75 Ectopy: None EKG Initial EKG: Attestation: I personally reviewed and interpreted this EKG as follows: Interpretation: Sinus Rhythm and No Acute Injury Pattern Comments: Normal EKG with borderline late transition and leftward axis Prior EKG tracings: available for review Prior: Unchanged Discharge Plan Dx/Rx/DC Orders Clinical Impression: Unstable angina, Coronary artery disease Disposition Disposition: Acute Care Hospital [facility]
[2022-04-27] MEDS: Aspirin 81 MG TAB.CHEW 162 MG PO (07:27)
[2022-04-27 07:33] LABS: Absolute Lymphocyte Count 3.16 X10^3/uL (0.83-4.51); Absolute Neutrophil Count 9.8 X10^3/uL (2.0-7.7); Basophil# 0.05 X10^3/uL; Basophil% 0.3 % (0-1); Eosinophil# 0.19 X10^3/uL; Eosinophils% 1.3 % (0-5); Hematocrit 44.1 % (40-54); Hemoglobin 14.8 g/dL (13.0-16.5); Lymphocyte # 3.16 X10^3/ul (0.83-4.51); Lymphocyte % 21.6 % (19-41); Mean Corp Hgb Conc 33.6 g/dL (32-36); Mean Corpuscular Volume 89.3 fL (80-94); Monocyte# 1.34 X10^3/uL; Monocyte% 9.2 % (0-10); NRBC Flagged by Analyzer 0 % (0-5); Neutrophil % 66.9 % (47-70); Platelet Count 270 K/mm3 (150-450); RBC Distribution Width SD 45.2 fl (35.1-43.9); Red Blood Count 4.94 M/mm3 (4.6-6.2); White Blood Count 14.6 K/mm3 (4.4-11.0)
[2022-04-27 07:53] LABS: Anion Gap 5 (5-15); BUN 16 mg/dL (7-18); BUN/Creat Ratio 16.2 RATIO (10-20); Calcium,Total 9.1 mg/dL (8.5-10.1); Chloride 102 mmol/L (98-107); Creatinine, Serum 0.99 mg/dL (0.70-1.30); EST Glomerular Filtration Rate 85 mL/min (>60); Est Glom Filt Rate - Afr Amer 103 mL/min (>60); Estimated Creatinine Clearance 86.36 ml/min; Glucose 119 mg/dL (74-106); Potassium 3.4 mmol/L (3.5-5.1); Sodium Level 137 mmol/L (136-145); Troponin-I HS (w/2H Reflex) 81 pg/mL (3.0-78.0)
[2022-04-27 09:03] LABS: Prothrombin Time (Protime)PT. 12.6 SECONDS (11.7-14.9)
[2022-04-27 09:04] LABS: Partial Thromboplast Time 24.8 Seconds (24.1-36.2)
[2022-04-27] MEDS: Heparin Injection (Vial) 5,000 UNIT/ML VIAL 4000 UNIT IV (09:10)
[2022-04-27] MEDS: HEPARIN/D5w 25,000 UNITS 25,000 UNITS/250 ML IV.SOLN. 10 UNITS CONT INF (09:11)
[2022-04-27 09:31] LABS: Reflex Troponin-HS? (from REC) Y
--- NOTE | 2022-04-27 10:18 | PCM.CONS.C ---
Documented by User: BAYLEE Valdez 04/27/22 11:00 Assessment & Plan Assessment/Plan (1) Unstable angina: (2) Coronary artery disease: (3) History of coronary artery stent placement: (4) Essential hypertension: (5) Hyperlipidemia: QUALIFIERS: Hyperlipidemia type: unspecified Qualified Code(s): E78.5 - Hyperlipidemia, unspecified PLAN: With patient's slightly elevated high-sensitivity troponin, recent negative stress test, cardiac history and his symptoms we will pursue at diagnostic heart catheterization to reevaluate his coronary anatomy. Patient will continue with his aspirin, clopidogrel, atorvastatin, beta-israel and MIO inhibitor for his coronary artery disease. He states that he has been compliant with his medications. Patient's blood pressure is elevated. For now we will continue with his current home medications, however will monitor closely and adjust accordingly Unfortunately patient continues to smoke, have encouraged patient to consider smoking cessation. HPI Consult Data Date of Consult: 04/27/22 HPI Narrative HPI Narrative: LATONYA ELDER, is a 51 M who presented to the emergency room this morning for chest discomfort. Patient states that he was at work. He developed some chest discomfort. He did take 1 nitroglycerin. The discomfort did not resolve. He did take a second nitroglycerin. Because he took a second nitroglycerin this was concerning for him. He then called his and he was brought to the emergency room. By the time his arrived at work he no longer had chest pain. He has not had any chest discomfort since he has been here in the hospital. His initial high-sensitivity troponin is slightly elevated. Patient does have an extensive cardiac history. He had a non-ST myocardial infarction in November 2016 where he had stenting to his second obtuse marginal in November 2020 he had a non-ST myocardial infarction and had stenting to his proximal mid and distal RCA. In October 2021 he had a STEMI and had stenting to his LAD. He does have a history of diabetes this is newly diagnosed in April 2021 when he presented to the emergency room in [facility]. He also has a history of hypertension which is not ideally controlled, hyperlipidemia and tobacco abuse. Patient had complained of chest discomfort in the office and December 2021 and he underwent a stress test which this was negative. [facility] Medical History Asthma Atherosclerosis of [place] coronary artery of [place] heart without angina pectoris Chronic obstructive pulmonary disease (COPD) Cluster headache Community acquired pneumonia COPD (chronic obstructive pulmonary disease) Coronary artery disease Diabetes Headache History of non-ST elevation myocardial infarction (NSTEMI) (11/22/20) Hyperlipidemia Insulin dependent diabetes mellitus Ischemic cardiomyopathy Migraine Myocardial infarct Nicotine dependence Non-ST elevation HI (NSTEMI) Obesity Obesity (BMI 30.0-34.9) Smoker Home Medications amlodipine 10 mg PO DAILY 04/28/21 [History Last Taken 04/27/22] chlorthalidone 25 mg PO DAILY 04/28/21 [History Last Taken 04/27/22] clonidine HCl 0.2 mg PO BID 04/28/21 [History Last Taken 04/27/22] loratadine 10 mg tablet 10 mg PO DAILY #90 tab 07/04/21 [Rx Last Taken 04/27/22] ProAir RespiClick 2 inh INHALATION PRN PRN 11/18/21 [History Last Taken 04/27/22] nitroglycerin 0.4 mg sublingual tablet 0.4 mg SUBLINGUAL Q5M PRN #25 tab 12/21/21 [Rx Last Taken 04/27/22] Humalog KwikPen Insulin 14 unit SUBCUT TID 04/27/22 [History Last Taken Unknown] albuterol sulfate 2 puff INHALATION 4X/DAY PRN 04/27/22 [History Last Taken 04/27/22] aspirin 81 mg PO DAILY 04/27/22 [History Last Taken 04/27/22] atorvastatin 80 mg PO QHS 04/27/22 [History Last Taken 04/26/22] clopidogrel [Plavix] 75 mg PO DAILY 04/27/22 [History Last Taken 04/27/22] insulin degludec [Tresiba FlexTouch U-200] 50 unit SUBCUT QHS 04/27/22 [History Last Taken 04/26/22] lisinopril 20 mg PO BID 04/27/22 [History Last Taken 04/27/22] metoprolol tartrate 50 mg PO BID 04/27/22 [History Last Taken 04/27/22] Allergy/AdvReac Type Severity Reaction Status Date / Time amoxicillin trihydrate Allergy Rash Verified 04/27/22 07:13 [From Augmentin] potassium clavulanate Allergy Rash Verified 04/27/22 07:13 [From Augmentin] codeine AdvReac Nausea Verified 04/27/22 07:13 Family History Sister Myocardial infarction, Onset Age: 41 Diabetes Mother COPD (chronic obstructive pulmonary disease) Asthma Rheumatoid arthritis CVA (cerebral vascular accident) Hypertension Grandmother Diabetes Surgical History History of appendectomy History of coronary artery stent placement (11/18/21) History of hernia repair (2008) History of neck surgery History of umbilical hernia repair (1971) Social History Smoking Status: Current every day smoker tobacco type: cigarettes Tobacco: How many years used: 20 Electronic Cigarette Use: not used second hand exposure: Yes alcohol intake: current alcohol intake frequency: 0-2 drinks per day Alcohol type: beer substance use type: does not use caffeine: Yes Type: carbonated beverages Number of servings: 2 and tea Number of servings: 6 what type of physical activity do you participate in: none ROS Constitutional Constitutional: Denies change in weight, chills, fatigue, frequent falls, headache(s) or lethargy Eyes Eyes: Denies acute decrease in peripheral vision, blurry vision or change in vision ENT HEENT: Denies dizziness, dry mouth, epistaxis, headache(s), tinnitus or vertigo Cardiovascular Cardiovascular: Reports as per HPI, chest pain at rest and chest pain with activity; Denies claudication, dyspnea at rest, dyspnea on exertion, edema, irregular heart rhythm, lightheadedness, orthopnea, orthostatic symptoms, palpitations or pedal edema Respiratory/Chest Respiratory/Chest: Denies cough, dyspnea, dyspnea on exertion, tachypnea or wheezing Gastrointestinal Gastrointestinal: Denies abdominal pain, bloating, coffee ground emesis, diarrhea, heartburn, hematemesis, hematochezia, melena or nausea Genitourinary Genitourinary: Denies hematuria Musculoskeletal Musculoskeletal: Denies myalgias, numbness or tingling Neurologic Neurologic: Denies abnormal gait, abnormal speech, memory loss, paresthesias or weakness Physical Exam Const alert, oriented x3, no apparent distress and healthy appearing HEENT normocephalic, head/scalp atraumatic, hearing grossly normal bilaterally, external ears normal, external nose normal and moist oral mucous membranes Eyes PERRL, EOMs intact bilaterally, conjunctivae normal and no scleral icterus Neck no lymphadenopathy, supple and no JVD Cardio regular rate, regular rhythm, S1 normal heart sound, S2 normal heart sound, no murmurs, no rub, no gallops, no clicks, no JVD and peripheral pulses 2+ throughout GI normal to inspection, nondistended, normoactive bowel sounds, soft to palpation, non-tender and non-distended Extremity normal to inspection, normal capillary refill, no clubbing, cyanosis or edema and no pedal edema Neuro oriented x3, CN's II-XII intact bilaterally, moves all extremities and no focal motor deficits Psych cooperative and affect normal Risk Stratification Risk Stratification Applicable: Yes Age >/= 65: No >/= 3 CAD Risk Factors (HTN, HLD, DM, family hx of CAD, or current smoker): Yes Aspirin Use in the Past 7 Days: Yes Severe Angina (>/= episodes in 24 hours): Yes EKG ST Changes >/= 0.5mm: No Positive Cardiac Marker: Yes ESTEPHANIA Risk Stratification Score: 4 ESTEPHANIA % Risk: 20% Risk Charges/Coding Visit Charges Office Visits / Consults: [id number] IP Consult L4 Objective Data Vital Signs: Vital Signs Temp Pulse Resp BP Pulse Ox 98.0 F 60 16 152/83 H 97 04/27/22 09:45 04/27/22 09:45 04/27/22 09:45 04/27/22 09:45 04/27/22 09:45 Oxygen Delivery Method Room Air Weight: 211 lb 6.773 oz Body Mass Index (BMI) 32.1 Intake & Output: Intake and Output for Last 24 Hours 04/25/22 04/26/22 04/27/22 23:59 23:59 23:59 Intake Total 10.33 / 10.33 Balance 10.33 / 10.33 Lab / Micro Data Result Diagrams: 04/27/22 07:20 04/27/22 07:20 Labs: Laboratory Results - last 24 hr 04/27/22 07:20: WBC 14.6 H, RBC 4.94, Hgb 14.8, Hct 44.1, MCV 89.3, MCH 30.0, MCHC 33.6, RDW Std Deviation 45.2 H, RDW Coeff of Narcisa 14.0, Plt Count 270, MPV 10.0, Immature Gran % (Auto) 0.700, Neut % (Auto) 66.9, Lymph % (Auto) 21.6, Alcorn % (Auto) 9.2, Eos % (Auto) 1.3, Baso % (Auto) 0.3, Absolute Neuts (auto) 9.8 H, Absolute Lymphs (auto) 3.16, Nucleated RBC % 0 04/27/22 07:20: Sodium 137, Potassium 3.4 L, Chloride 102, Carbon Dioxide 30.0, Anion Gap 5, BUN 16, Creatinine 0.99, Estim Creat Clear Calc 86.36, Est GFR (MDRD) Af Amer 103, Est GFR (MDRD) Non-Af 85, BUN/Creatinine Ratio 16.2, Glucose 119 H, Calcium 9.1, Troponin I High Sens 81 H 04/27/22 07:20: PT 12.6, INR 1.0, APTT 24.8 Rhythm Strip Rhythm Strip: Sinus Rhythm Rate: 75 Ectopy: None Cardiology Labs/Tests 04/27/22 07:20: WBC 14.6 H, RBC 4.94, Hgb 14.8, Hct 44.1, MCV 89.3, MCH 30.0, MCHC 33.6, Plt Count 270, MPV 10.0, Immature Gran % (Auto) 0.700, Neut % (Auto) 66.9, Lymph % (Auto) 21.6, Alcorn % (Auto) 9.2, Eos % (Auto) 1.3, Baso % (Auto) 0.3, Absolute Neuts (auto) 9.8 H, Nucleated RBC % 0 04/27/22 07:20: Sodium 137, Potassium 3.4 L, Chloride 102, Carbon Dioxide 30.0, Anion Gap 5, BUN 16, Creatinine 0.99, Est GFR (MDRD) Af Amer 103, Est GFR (MDRD) Non-Af 85, BUN/Creatinine Ratio 16.2, Glucose 119 H, Calcium 9.1 04/27/22 07:20: PT 12.6, INR 1.0, APTT 24.8 Radiography Diagnostic Testing: Radiology Impression Chest X-Ray 04/27/22 07:21 IMPRESSION: There is blunting of the left costophrenic angle with mild increased markings at the left lung base suggestive of either atelectasis and/or scarring. Electronically Signed: Jin Woodall MD at 8:52 EDT , Documented by User: Dr. Bernabe Roberts MD 04/27/22 12:09 Assessment & Plan Assessment/Plan (1) Unstable angina: (2) History of coronary artery stent placement: (3) Atherosclerosis of [place] coronary artery of [place] heart without angina pectoris: (4) History of non-ST elevation myocardial infarction (NSTEMI): PLAN: Patient seen and evaluated today in the PCU along with nursing staff and the midlevel And he had extensive cardiac history and presenting with symptoms of chest pain Not relieved with regular doses of sublingual nitroglycerin. Had a very mild elevation of cardiac biomarker high sensitive troponin up to 81 Based on the clinical presentation and extensive cardiac history. Clinical diagnosis is non-ST elevation HI patient also continues to smoke. Cardiac care plan recommendations; 1. Patient underwent cardiac catheterization today which demonstrated patency of the mid LAD, OM1 and RCA stent Patient had a proximal LAD lesion/proximal to the stent which is intermediate region around 50-60% with IFR repeated twice within normal And patient has been stable does not have any symptoms of chest pain there were no change in the electrocardiogram. Based on the finding of cardiac catheterization and he is a clinical presentation and decision was made to treat with medical therapy 2. Cardiac catheterization finding discussed in detail with the patient, and the primary on site construction superintendent Dr. Flores patient anxious to be discharged home today Will maximize medical therapy with long-acting nitrate continue on dual antiplatelet therapy with aspirin Plavix, patient advised cessation of smoking. 3. If he remains stable clinically he can be discharged home from cardiac standpoint with the plan of follow-up as an outpatient. HPI Consult Data Date of Consult: 04/27/22 [facility] Medical History Asthma Atherosclerosis of [place] coronary artery of [place] heart without angina pectoris Chronic obstructive pulmonary disease (COPD) Cluster headache Community acquired pneumonia COPD (chronic obstructive pulmonary disease) Coronary artery disease Diabetes Headache History of non-ST elevation myocardial infarction (NSTEMI) (11/22/20) Hyperlipidemia Insulin dependent diabetes mellitus Ischemic cardiomyopathy Migraine Myocardial infarct Nicotine dependence Non-ST elevation HI (NSTEMI) Obesity Obesity (BMI 30.0-34.9) Smoker Home Medications amlodipine 10 mg PO DAILY 04/28/21 [History Last Taken 04/27/22] chlorthalidone 25 mg PO DAILY 04/28/21 [History Last Taken 04/27/22] clonidine HCl 0.2 mg PO BID 04/28/21 [History Last Taken 04/27/22] loratadine 10 mg tablet 10 mg PO DAILY #90 tab 07/04/21 [Rx Last Taken 04/27/22] ProAir RespiClick 2 inh INHALATION PRN PRN 11/18/21 [History Last Taken 04/27/22] nitroglycerin 0.4 mg sublingual tablet 0.4 mg SUBLINGUAL Q5M PRN #25 tab 12/21/21 [Rx Last Taken 04/27/22] Humalog KwikPen Insulin 14 unit SUBCUT TID 04/27/22 [History Last Taken Unknown] albuterol sulfate 2 puff INHALATION 4X/DAY PRN 04/27/22 [History Last Taken 04/27/22] aspirin 81 mg PO DAILY 04/27/22 [History Last Taken 04/27/22] atorvastatin 80 mg PO QHS 04/27/22 [History Last Taken 04/26/22] clopidogrel [Plavix] 75 mg PO DAILY 04/27/22 [History Last Taken 04/27/22] insulin degludec [Tresiba FlexTouch U-200] 50 unit SUBCUT QHS 04/27/22 [History Last Taken 04/26/22] lisinopril 20 mg PO BID 04/27/22 [History Last Taken 04/27/22] metoprolol tartrate 50 mg PO BID 04/27/22 [History Last Taken 04/27/22] Allergy/AdvReac Type Severity Reaction Status Date / Time amoxicillin trihydrate Allergy Rash Verified 04/27/22 07:13 [From Augmentin] potassium clavulanate Allergy Rash Verified 04/27/22 07:13 [From Augmentin] codeine AdvReac Nausea Verified 04/27/22 07:13 Family History Sister Myocardial infarction, Onset Age: 41 Diabetes Mother COPD (chronic obstructive pulmonary disease) Asthma Rheumatoid arthritis CVA (cerebral vascular accident) Hypertension Grandmother Diabetes Surgical History History of appendectomy History of coronary artery stent placement (11/18/21) History of hernia repair (2008) History of neck surgery History of umbilical hernia repair (1971) Social History Smoking Status: Current every day smoker tobacco type: cigarettes Tobacco: How many years used: 20 Electronic Cigarette Use: not used second hand exposure: Yes alcohol intake: current alcohol intake frequency: 0-2 drinks per day Alcohol type: beer substance use type: does not use caffeine: Yes Type: carbonated beverages Number of servings: 2 and tea Number of servings: 6 what type of physical activity do you participate in: none Lab / Micro Data Result Diagrams: 04/27/22 07:20 04/27/22 07:20
[2022-04-27 10:23] LABS: Troponin-I HS 79 pg/mL (3.0-78.0)
--- NOTE | 2022-04-27 10:28 | EKG12_ITS ---
Test Reason : CP ADMITT Blood Pressure : / mmHG Vent. Rate : 067 BPM Atrial Rate : 067 BPM P-R Int : 190 ms QRS Dur : 112 ms QT Int : 416 ms P-R-T Axes : 049 -19 -07 degrees QTc Int : 439 ms Normal sinus rhythm Normal ECG When compared with ECG of 20-DEC-2021 16:30, Questionable change in QRS axis Nonspecific T wave abnormality now evident in Inferior leads Nonspecific T wave abnormality has replaced inverted T waves in Lateral leads Confirmed by BIRGIT EVANGELISTA, GENE ([id number]), purchase request editor EVELIO CURRY ([id number]) on 05/01/2022 1:08:10 PM Referred By: Tiffany LAND Confirmed By:GENE GENAO MD
--- NOTE | 2022-04-27 11:44 | PCM.OP.PRO ---
Procedure Report Date of Procedure: 04/27/22 Cardiac catheterization report; 1 selective left coronary angiography 2. Selective right cholangiography 3. Measurement of IFR to the proximal LAD. 4. Placement of TR band to close the right radial artery arteriotomy site. Consent; Risk and benefit of procedure explained detail patient elected to proceed informed consent obtained Preprocedure diagnosis; 51-year-old patient presented with symptoms of chest pain and had a mild elevation of cardiac biomarker with a clinical diagnosis of CAD/non-STEMI. Patient has multiple coronary artery stent including the last time the mid LAD large dominant RCA stent and OM1 stent. Patient continues to smoke He was on dual antiplatelet therapy with Plavix and aspirin. Based on the clinical presentation we will proceed with the cardiac catheterization. ; Interventional equipment used; 1. Diagnostic catheter 5 Jamaican Tol[place] catheter 2. 6 Jamaican 3.5 EBU guide catheter 3. IFR wire. Medication in the Lead Sales Consultant; Patient was given a cocktail of heparin nitro and verapamil As well he was given a total of 6000 units of heparin intravenous Patient was given 300 mg of Plavix p.o. in addition to regular aspirin. Access; Right radial artery approach Procedure in detail; Under fluoroscopic guidance to proceed with a 5 Jamaican [place] catheter with the regular Glidewire advanced ascending aorta cannulated the left main without difficulty Multiple views including PORTUGUESE, SANTOS cranial and caudal views The same catheter was used to cannulate the RCA without difficulty Single view for the RCA was obtained. To minimize contrast use Finding of cardiac catheterization reviewed; 1. Left main Short normal angiographically, bifurcating into LAD and the left circumflex 2. Mid LAD stent is patent proximal to that he had an intermediate lesion of around 50 to 60% which was evaluated by IFR twice and IFR within normal 3. Patency of the stent in the mid LAD with nonobstructive atherosclerosis involving the diagonal branch 4. OM stent is patent with diffuse proximal OM1 of around , 40% The circumflex in the AV groove had no significant atherosclerosis 5. RCA large dominant patency of the proximal RCA stent is noted he had distal RPDA lesion which is around 50-60%. Small distal portion of RPDA Conclusion and recommendations; I explained in detail to the patient and to the the finding of cardiac catheterization and IFR findings. Patient advised cessation of smoking Advised to continue current antiplatelet therapy with aspirin Plavix. Patency of the mid LAD, OM1 and RCA stent noted with diffuse atherosclerosis involving the OM 1 and proximal LAD intermediate lesion of around 50 - 60% with normal IFR Finding of cardiac catheterization as well discussed with the primary inventory control coordinator Dr. Flores If he stable clinically he can be discharged home today from cardiac standpoint With the plan of follow-up with his primary inventory control coordinator Dr. Flores. We will continue medical therapy No complication in the Lead Sales Consultant Bernabe Roberts MD,FAC,[facility] [place]
[2022-04-27] MEDS: Potassium Chloride Oral Tablet 20 MEQ 40 MEQ PO (11:53)
[2022-04-27 12:06] LABS: Bedside Glucose 110 mg/dL (74-106)
[2022-04-27] MEDS: 0.9% Normal Saline 1,000 ML 75 ML IV (12:11)
--- NOTE | 2022-04-27 12:16 | HP.PCM.HOS_ITS ---
HPI - General General Date of Admission: 04/27/22 Date of Service: 04/27/22 Chief Complaint: chest pain HPI Narrative LATONYA ELDER, is a 51 M who presents chest pain while at work. Patient felt that he is having a chest cramp today while at work. Took nitroglycerin without relief. Did not have symptoms similar to when he had his so patient myocardial infarction back in October. At that time, he had pain that went into his neck as well as his left arm. He did not have any other constitutional symptoms such as shortness of breath or nausea and vomiting. He presented to the emergency room and was found to have a troponin that was 81. Dr. Roberts, of cardiology was contacted and advised admission and plan for heart catheterization. [facility] Medical History Asthma Atherosclerosis of [place] coronary artery of [place] heart without angina pectoris Chronic obstructive pulmonary disease (COPD) Cluster headache Community acquired pneumonia COPD (chronic obstructive pulmonary disease) Coronary artery disease Diabetes Headache History of non-ST elevation myocardial infarction (NSTEMI) (11/22/20) Hyperlipidemia Insulin dependent diabetes mellitus Ischemic cardiomyopathy Migraine Myocardial infarct Nicotine dependence Non-ST elevation [place] (NSTEMI) Obesity Obesity (BMI 30.0-34.9) Smoker Home Medications amlodipine 10 mg PO DAILY 04/28/21 [History Last Taken 04/27/22] chlorthalidone 25 mg PO DAILY 04/28/21 [History Last Taken 04/27/22] clonidine HCl 0.2 mg PO BID 04/28/21 [History Last Taken 04/27/22] loratadine 10 mg tablet 10 mg PO DAILY #90 tab 07/04/21 [Rx Last Taken 04/27/22] ProAir RespiClick 2 inh INHALATION PRN PRN 11/18/21 [History Last Taken 04/27/22] nitroglycerin 0.4 mg sublingual tablet 0.4 mg SUBLINGUAL Q5M PRN #25 tab 12/21/21 [Rx Last Taken 04/27/22] Humalog KwikPen Insulin 14 unit SUBCUT TID 04/27/22 [History Last Taken Unknown] albuterol sulfate 2 puff INHALATION 4X/DAY PRN 04/27/22 [History Last Taken 04/27/22] aspirin 81 mg PO DAILY 04/27/22 [History Last Taken 04/27/22] atorvastatin 80 mg PO QHS 04/27/22 [History Last Taken 04/26/22] clopidogrel [Plavix] 75 mg PO DAILY 04/27/22 [History Last Taken 04/27/22] insulin degludec [Tresiba FlexTouch U-200] 50 unit SUBCUT QHS 04/27/22 [History Last Taken 04/26/22] lisinopril 20 mg PO BID 04/27/22 [History Last Taken 04/27/22] metoprolol tartrate 50 mg PO BID 04/27/22 [History Last Taken 04/27/22] Allergy/AdvReac Type Severity Reaction Status Date / Time amoxicillin trihydrate Allergy Rash Verified 04/27/22 07:13 [From Augmentin] potassium clavulanate Allergy Rash Verified 04/27/22 07:13 [From Augmentin] codeine AdvReac Nausea Verified 04/27/22 07:13 Family History Sister Myocardial infarction, Onset Age: 41 Diabetes Mother COPD (chronic obstructive pulmonary disease) Asthma Rheumatoid arthritis CVA (cerebral vascular accident) Hypertension Grandmother Diabetes Surgical History History of appendectomy History of coronary artery stent placement (11/18/21) History of hernia repair (2008) History of neck surgery History of umbilical hernia repair (1971) Social History Smoking Status: Current every day smoker tobacco type: cigarettes Tobacco: How many years used: 20 Electronic Cigarette Use: not used second hand exposure: Yes alcohol intake: current alcohol intake frequency: 0-2 drinks per day Alcohol type: beer substance use type: does not use caffeine: Yes Type: carbonated beverages Number of servings: 2 and tea Number of servings: 6 what type of physical activity do you participate in: none ROS ROS Narrative All review of systems were negative except as mentioned above in the history of present illness and the other review of systems. Vital Signs Vital Signs Vital Signs: 04/27/22 07:11 04/27/22 07:18 04/27/22 07:26 Temperature 36.5 C L Temperature Source Oral Pulse Rate 76 Pulse Strength Respiratory Rate 20 H Respiratory Effort Normal Non-Labored Respiratory Pattern Normal Blood Pressure 146/80 H Blood Pressure Mean 102 Blood Pressure Source Blood Pressure Position Blood Pressure Location Pulse Ox 95 Oxygen Delivery Method Room Air Room Air 04/27/22 08:25 04/27/22 08:49 04/27/22 09:03 Temperature 36.6 C Temperature Source Temporal Pulse Rate 68 Pulse Strength Respiratory Rate 16 Respiratory Effort Respiratory Pattern Blood Pressure 151/91 H 171/103 H 134/104 H Blood Pressure Mean 111 125 114 Blood Pressure Source Blood Pressure Position Blood Pressure Location Pulse Ox 94 Oxygen Delivery Method Room Air 04/27/22 09:41 04/27/22 09:45 04/27/22 11:45 Temperature 36.7 C Temperature Source Temporal Pulse Rate 75 60 62 Pulse Strength Normal (2+) Respiratory Rate 16 16 Respiratory Effort Respiratory Pattern Blood Pressure 152/83 H 175/112 H Blood Pressure Mean 106 133 Blood Pressure Source Monitor Monitor Blood Pressure Position Semi-Fowlers Semi-Fowlers Blood Pressure Location Right Arm Left Arm Pulse Ox 97 96 Oxygen Delivery Method Room Air Room Air 04/27/22 12:00 Temperature Temperature Source Pulse Rate 73 Pulse Strength Respiratory Rate 16 Respiratory Effort Respiratory Pattern Blood Pressure 176/109 H Blood Pressure Mean 131 Blood Pressure Source Monitor Blood Pressure Position Semi-Fowlers Blood Pressure Location Left Arm Pulse Ox 95 Oxygen Delivery Method Room Air Weight Weight: 95.9 kg Body Mass Index (BMI) 32.1 Physical Exam Const alert General Appearance: cooperative Resp normal respiratory effort, no retractions, no use of accessory muscles and clear to auscultation bilaterally Cardio regular rate, regular rhythm, S1 normal heart sound and S2 normal heart sound GI normal to inspection, nondistended, normoactive bowel sounds, soft to palpation, non-tender and non-distended Extremity normal to inspection Results Lab / Micro Data Result Diagrams: 04/27/22 07:20 04/27/22 07:20 Labs: Laboratory Results - last 24 hr 04/27/22 07:20: WBC 14.6 H, RBC 4.94, Hgb 14.8, Hct 44.1, MCV 89.3, MCH 30.0, MCHC 33.6, RDW Std Deviation 45.2 H, RDW Coeff of Narcisa 14.0, Plt Count 270, MPV 10.0, Immature Gran % (Auto) 0.700, Neut % (Auto) 66.9, Lymph % (Auto) 21.6, [place] % (Auto) 9.2, Eos % (Auto) 1.3, Baso % (Auto) 0.3, Absolute Neuts (auto) 9.8 H, Absolute Lymphs (auto) 3.16, Nucleated RBC % 0 04/27/22 07:20: Sodium 137, Potassium 3.4 L, Chloride 102, Carbon Dioxide 30.0, Anion Gap 5, BUN 16, Creatinine 0.99, Estim Creat Clear Calc 86.36, Est GFR (MDRD) Af Amer 103, Est GFR (MDRD) Non-Af 85, BUN/Creatinine Ratio 16.2, Glucose 119 H, Calcium 9.1, Troponin I High Sens 81 H 04/27/22 07:20: PT 12.6, INR 1.0, APTT 24.8 04/27/22 09:55: Troponin I High Sens 79 H 04/27/22 12:01: POC Glucose 110 H Rhythm Strip Rhythm Strip: Sinus Rhythm Rate: 75 Ectopy: None EKG Initial EKG: Attestation: I personally reviewed and interpreted this EKG as follows: Prior EKG tracings: available for review EKG Rhythm Intrepretation: Sinus Rhythm Radiology Impression Chest X-Ray 04/27/22 07:21 IMPRESSION: There is blunting of the left costophrenic angle with mild increased markings at the left lung base suggestive of either atelectasis and/or scarring. Electronically Signed: Jin Woodall MD at 8:52 EDT Reading Location ID and State: [address] [place] [address] , Service support , Assessment & Plan Assessment/Plan (1) Chest pain: QUALIFIERS: Chest pain type: unspecified Qualified Code(s): R07.9 - Chest pain, unspecified PLAN: 1. Chest pain Atypical Left heart catheterization performed today and was unremarkable. Suspect patient may have an esophageal spasm. He states that he does not drink coffee anymore and has alcohol in moderation. He does state, however, that he does have spicy foods. I did advise cutting jackie k on spicy foods 2. CAD Stable Troponins likely appeared to be chronically elevated Continue with aspirin, high intensity statin, clopidogrel, metoprolol and lisinopril Discharged home. Charges/Coding Visit Charges OBSV E&M: 88877 Observ/hosp same date L2
--- NOTE | 2022-04-27 12:21 | PCM.DC ---
Discharge Instructions Diet Discharge Diet: Low fat / Low cholesterol, 2000 Calorie Control Diet and - (minimize spicy foods) Activity Discharge Activity: Return to Normal Activity Dressing / Incision Call your doctor if you observe: Shortness of breath and Chest pain Follow Up Care Test Results: Test results from this visit will be discussed in further detail at your follow-up appointment, if applicable. Discharge Plan Admission Admit Date/Time: 04/27/22 10:15 Primary Reason for Your Visit: chest pain Attending Provider: Brennon Juarez Primary Care Provider: Sivan Bowie Consulting Providers: Bernabe Roberts Discharge Orders/Prescriptions Prescriptions: Continued nitroglycerin 0.4 mg tablet, sublingual 0.4 mg sublingual Q5M PRN (Reason: chest pain) Qty: 25 RF: 3 chlorthalidone 25 mg tablet 25 mg PO DAILY RF: 0 clonidine HCl 0.2 mg tablet 0.2 mg PO BID RF: 0 amlodipine 10 mg tablet 10 mg PO DAILY RF: 0 ProAir RespiClick 90 mcg/actuation aerosol powdr breath activated 2 inh INHALATION PRN PRN (Reason: Bronchodilation) RF: 0 albuterol sulfate 90 mcg/actuation HFA aerosol inhaler 2 puff INHALATION 4X/DAY PRN (Reason: Shortness Of Breath) RF: 0 atorvastatin 80 mg tablet 80 mg PO QHS RF: 0 lisinopril 20 mg tablet 20 mg PO BID RF: 0 clopidogrel [Plavix] 75 mg tablet 75 mg PO DAILY RF: 0 metoprolol tartrate 50 mg tablet 50 mg PO BID RF: 0 aspirin 81 MG tablet,chewable 81 mg PO DAILY RF: 0 Tresiba FlexTouch U-200 200 unit/mL (3 mL) insulin pen 50 unit subcut QHS RF: 0 Humalog KwikPen Insulin 200 unit/mL (3 mL) insulin pen 14 unit subcut TID RF: 0 loratadine 10 mg tablet 10 mg PO DAILY Qty: 90 RF: 1 Referrals / Follow Up: [facility] [Provider Group] - Within 1 Month Sivan Bowie MD [Primary Care Provider] - Within 2 Weeks Disposition Disposition (needs filled in before D/C Order can be placed): Home, Self Care
--- NOTE | 2022-04-27 12:24 | PCM.DC.SUM ---
Providers Date of Admission: 04/27/22 Primary Care Physician: Dr. Sivan Bowie MD Consultations 04/27/22 10:17 Consult: Cardiology Routine Consulting Provider: Bernabe Roberts Reason for Consult: chest pain EMERGENT Consult: No Notified: Yes Date Notified: 04/27/22 Time Notified: 10:17 Method of Notification: Verbal 04/27/22 10:28 Consult: Cardiology Routine Consulting Provider: Bernabe Roberts Reason for Consult: chest pain EMERGENT Consult: No Notified: Yes Date Notified: 04/27/22 Time Notified: 10:18 Method of Notification: ED Physician Initiated Reason For Visit: UNSTABLE ANGINA Diagnosis Discharge Diagnosis (1) Chest pain: Status: Acute Code(s): R07.9 - Chest pain, unspecified Qualifiers: Chest pain type: unspecified Qualified Code(s): R07.9 - Chest pain, unspecified Medications at Discharge Home Medications amlodipine 10 mg PO DAILY 04/28/21 chlorthalidone 25 mg PO DAILY 04/28/21 clonidine HCl 0.2 mg PO BID 04/28/21 loratadine 10 mg tablet 10 mg PO DAILY #90 tab 07/04/21 ProAir RespiClick 2 inh INHALATION PRN PRN 11/18/21 nitroglycerin 0.4 mg sublingual tablet 0.4 mg SUBLINGUAL Q5M PRN #25 tab 12/21/21 Humalog KwikPen Insulin 14 unit SUBCUT TID 04/27/22 Tresiba FlexTouch U-200 50 unit SUBCUT QHS 04/27/22 albuterol sulfate 2 puff INHALATION 4X/DAY PRN 04/27/22 aspirin 81 mg PO DAILY 04/27/22 atorvastatin 80 mg PO QHS 04/27/22 clopidogrel [Plavix] 75 mg PO DAILY 04/27/22 lisinopril 20 mg PO BID 04/27/22 metoprolol tartrate 50 mg PO BID 04/27/22 Hospital Course Operations None Procedures Cardiac catheterization Summary of Care Provided Hospital Course: See history and physical for further details Weight / BMI Weight Weight: 95.9 kg Body Mass Index (BMI) 32.1 ABG / Lab / Microbiology Data Result Diagrams: 04/27/22 07:20 04/27/22 07:20 Laboratory: Laboratory Results - last 24 hr 04/27/22 07:20: WBC 14.6 H, RBC 4.94, Hgb 14.8, Hct 44.1, MCV 89.3, MCH 30.0, MCHC 33.6, RDW Std Deviation 45.2 H, RDW Coeff of Narcisa 14.0, Plt Count 270, MPV 10.0, Immature Gran % (Auto) 0.700, Neut % (Auto) 66.9, Lymph % (Auto) 21.6, [place] % (Auto) 9.2, Eos % (Auto) 1.3, Baso % (Auto) 0.3, Absolute Neuts (auto) 9.8 H, Absolute Lymphs (auto) 3.16, Nucleated RBC % 0 04/27/22 07:20: Sodium 137, Potassium 3.4 L, Chloride 102, Carbon Dioxide 30.0, Anion Gap 5, BUN 16, Creatinine 0.99, Estim Creat Clear Calc 86.36, Est GFR (MDRD) Af Amer 103, Est GFR (MDRD) Non-Af 85, BUN/Creatinine Ratio 16.2, Glucose 119 H, Calcium 9.1, Troponin I High Sens 81 H 04/27/22 07:20: PT 12.6, INR 1.0, APTT 24.8 04/27/22 09:55: Troponin I High Sens 79 H 04/27/22 12:01: POC Glucose 110 H Radiography Diagnostic Testing: Radiology Impression Chest X-Ray 04/27/22 07:21 IMPRESSION: There is blunting of the left costophrenic angle with mild increased markings at the left lung base suggestive of either atelectasis and/or scarring. Electronically Signed: Jin Woodall MD at 8:52 EDT , D/C Instructions Discharge Diet: Low fat / Low cholesterol, 2000 Calorie Control Diet and - (minimize spicy foods) Call your doctor if you observe: Shortness of breath and Chest pain Meaningful Use Info Meaningful Use Diagnoses (Choose all that apply): None applicable Discharge Plan Admission Admit Date/Time: 04/27/22 10:15 Primary Reason for Your Visit: chest pain Attending Provider: Brennon Juarez Primary Care Provider: Sivan Bowie Consulting Providers: Bernabe Roberts Instructions Additional Instructions / Restrictions: Return to work 05/01/2022. Discharge Orders/Prescriptions Prescriptions: Continued nitroglycerin 0.4 mg tablet, sublingual 0.4 mg sublingual Q5M PRN (Reason: chest pain) Qty: 25 RF: 3 chlorthalidone 25 mg tablet 25 mg PO DAILY RF: 0 clonidine HCl 0.2 mg tablet 0.2 mg PO BID RF: 0 amlodipine 10 mg tablet 10 mg PO DAILY RF: 0 ProAir RespiClick 90 mcg/actuation aerosol powdr breath activated 2 inh INHALATION PRN PRN (Reason: Bronchodilation) RF: 0 albuterol sulfate 90 mcg/actuation HFA aerosol inhaler 2 puff INHALATION 4X/DAY PRN (Reason: Shortness Of Breath) RF: 0 atorvastatin 80 mg tablet 80 mg PO QHS RF: 0 lisinopril 20 mg tablet 20 mg PO BID RF: 0 clopidogrel [Plavix] 75 mg tablet 75 mg PO DAILY RF: 0 metoprolol tartrate 50 mg tablet 50 mg PO BID RF: 0 aspirin 81 MG tablet,chewable 81 mg PO DAILY RF: 0 Tresiba FlexTouch U-200 200 unit/mL (3 mL) insulin pen 50 unit subcut QHS RF: 0 Humalog KwikPen Insulin 200 unit/mL (3 mL) insulin pen 14 unit subcut TID RF: 0 loratadine 10 mg tablet 10 mg PO DAILY Qty: 90 RF: 1 Referrals / Follow Up: [facility] [Provider Group] - Within 1 Month Sivan Bowie MD [Primary Care Provider] - Within 2 Weeks Disposition Disposition (needs filled in before D/C Order can be placed): Home, Self Care
[2022-04-27] MEDS: Insulin Lispro 100 UNIT/ML INSULN.PEN 14 UNIT SC (12:32)
== END 2022-04-27 12:24 | disposition home or self-care (01) ==
LOC: ED 08:40 → PCU 12:24
PROVIDERS: Emergency Provider Emergency Medicine; PCP Internal Medicine
DX: I25.110 Atherosclerotic heart disease of native coronary artery with unstable angina pectoris (principal); J44.9 Chronic obstructive pulmonary disease, unspecified; E11.9 Type 2 diabetes mellitus without complications; Z79.4 Long term (current) use of insulin; R07.89 Other chest pain; E78.5 Hyperlipidemia, unspecified; F17.210 Nicotine dependence, cigarettes, uncomplicated; I10 Essential (primary) hypertension; I25.5 Ischemic cardiomyopathy; Z79.02 Long term (current) use of antithrombotics/antiplatelets; Z79.82 Long term (current) use of aspirin; E66.9 Obesity, unspecified; Z68.32 Body mass index [BMI] 32.0-32.9, adult; Z79.899 Other long term (current) drug therapy; Z95.5 Presence of coronary angioplasty implant and graft; I25.2 Old myocardial infarction
CPT/HCPCS: 71045; 80048; 82962; 84484; 85025; 85610; 85730; 93005; 93454; 93571; 96361; 96365; 96376; 99152; 99153; 99218; 99285; J7030; Q9967; C1769; C1887; C1894; G0378

== ENCOUNTER 2022-06-15 15:10 | Outpatient (CLI) | payer OTHER, SELFPAY ==
[2021-06-01 14:28] VITALS: BMI 35.6
--- NOTE | 2022-06-15 15:20 | RAD_ITS ---
EXAM: XR LEFT SHOULDER COMPLETE, 2 OR MORE VIEWS CLINICAL INDICATION: Left Shoulder Pain TECHNIQUE: Two or more views of the left shoulder. This report was created using [employer] report generation technology. COMPARISON: None. FINDINGS: BONES/JOINTS: Moderate degenerative changes of the acromioclavicular joint. No suspicious lytic or sclerotic lesions of bone to include absence of acute or healing fracture or malalignment. Type II acromion with curved undersurface. No os acromiale. No subacromial enthesophyte. SOFT TISSUES: Unremarkable. No soft tissue swelling or gas. No radiopaque foreign body. OTHER FINDINGS: The periphery of the subacromial space is narrowed and therefore likely associated with impingement. RAD/Shoulder min 2 Views IMPRESSION: 1. No acute or healing fracture or malalignment. 2. Moderate degenerative changes involving the acromioclavicular joint. Electronically Signed: Morgan Orourke MD at 4:05 EDT ,
== END 2022-06-15 23:59 | disposition home or self-care (01) ==
LOC: RAD 15:11
PROVIDERS: PCP Internal Medicine; Visit Provider Internal Medicine
DX: M25.512 Pain in left shoulder (principal)
CPT/HCPCS: 73030

== ENCOUNTER 2022-06-26 01:02 | Observation (INO) | payer OTHER, SELFPAY ==
[2021-06-01 14:28] VITALS: BMI 35.6
[2022-06-26] VITALS (29 sets, daily range): BP systolic 150–212; BP diastolic 92–129; PULSE 69–98; RESP 12–27; TEMP 36.3–37.1; O2SAT 91–98; BMI 34.0
--- NOTE | 2022-06-26 01:28 | RAD_ITS ---
EXAM: XR CHEST, 1 VIEW CLINICAL INDICATION: chest pain TECHNIQUE: Frontal view of the chest. This report was created using [employer] report generation technology. COMPARISON: 12/20/2021 FINDINGS: LUNGS AND PLEURAL SPACES: Mild bibasilar airspace disease. No pneumothorax. No effusion. HEART: Unremarkable. Cardiac silhouette not enlarged. MEDIASTINUM: Central airways and mediastinal contour are unremarkable. BONES/JOINTS: Unremarkable. SOFT TISSUES: Unremarkable. RAD/Chest 1 View (Portable) IMPRESSION: Mild bibasilar airspace disease. Findings may indicate atelectasis or infection. Electronically Signed: Tereso Celis MD at 2:02 EDT ,
--- NOTE | 2022-06-26 01:33 | EKG12_ITS ---
Test Reason : CP Blood Pressure : / mmHG Vent. Rate : 095 BPM Atrial Rate : 095 BPM P-R Int : 180 ms QRS Dur : 110 ms QT Int : 372 ms P-R-T Axes : 071 -21 045 degrees QTc Int : 467 ms Normal sinus rhythm Minimal voltage criteria for LVH, may be normal variant ( [place] product ) Confirmed by BIRGIT EVANGELISTA, GENE ([id number]), supervising editor news reel TESS PERRY ([id number]) on 06/27/2022 9:20:00 AM Referred By: HILDA Confirmed By:GENE GENAO MD
[2022-06-26 01:39] LABS: Absolute Lymphocyte Count 3.42 X10^3/uL (0.83-4.51); Basophil# 0.06 X10^3/uL; Basophil% 0.5 % (0-1); Eosinophil# 0.28 X10^3/uL; Eosinophils% 2.1 % (0-5); Hemoglobin 15.6 g/dL (13.0-16.5); Lymphocyte # 3.42 X10^3/ul (0.83-4.51); Lymphocyte % 26.1 % (19-41); Mean Corp Hgb Conc 35.5 g/dL (32-36); Mean Corpuscular Hgb 31.6 pg (27.0-32.0); Mean Corpuscular Volume 89.1 fL (80-94); Mean Platelet Vol. 10.1 fl (6.2-12.0); Monocyte# 1.27 X10^3/uL; Monocyte% 9.7 % (0-10); NRBC Flagged by Analyzer 0 % (0-5); Neutrophil % 60.9 % (47-70); Platelet Count 221 K/mm3 (150-450); RBC Distribution Width CV 13.4 % (11.6-14.6); RBC Distribution Width SD 43.9 fl (35.1-43.9); Red Blood Count 4.94 M/mm3 (4.6-6.2); White Blood Count 13.1 K/mm3 (4.4-11.0)
[2022-06-26] MEDS: Aspirin 81 MG TAB.CHEW 243 MG PO (01:39)
[2022-06-26] MEDS: Nitroglycerin SL (ED/IMG/CATH) 0.4 MG TABLET SL (01:40)
[2022-06-26] MEDS: Nitroglycerin Oint 1 INCH PACKET TD (01:58)
--- NOTE | 2022-06-26 02:01 | EDS_ITS ---
HPI History of Present Illness Chief Complaint: Chest Pain Narrative Narrative: Patient is a 51-year-old male with past medical history of hypertension insulin- dependent diabetes and CAD requiring multiple stents. He reports he was at home this evening about to fall asleep when he developed midsternal chest discomfort that cause shortness of breath. He states he felt similar nature to his previous heart attacks and therefore he took 2 nitro and did have some symptom improvement. He states however that the improvement was short-lived and secondary to that presents for evaluation as he has concern for repeat cardiac event. He does states he had a stent placed in October 2021 and a stress test in January of this year. PFSH PFSH Medical History Asthma Atherosclerosis of [place] coronary artery of [place] heart without angina pectoris Chronic obstructive pulmonary disease (COPD) Cluster headache Community acquired pneumonia COPD (chronic obstructive pulmonary disease) Coronary artery disease Diabetes Essential hypertension Headache History of non-ST elevation myocardial infarction (NSTEMI) (11/22/20) Hyperlipidemia Insulin dependent diabetes mellitus Ischemic cardiomyopathy Left shoulder pain Migraine Myocardial infarct Nicotine dependence Non-ST elevation [place] (NSTEMI) Obesity Obesity (BMI 30.0-34.9) Smoker Home Medications chlorthalidone 25 mg tablet 25 mg PO DAILY water pill 04/28/21 [History Last Taken 04/27/22] clonidine HCl 0.2 mg tablet 0.2 mg PO BID blood pressure 04/28/21 [History Last Taken 04/27/22] albuterol sulfate 90 mcg/actuation breath activated powder inhaler (ProAir RespiClick) 2 inh inhalation PRN PRN Bronchodilation 11/18/21 [History Last Taken 04/27/22] nitroglycerin 0.4 mg sublingual tablet 0.4 mg sublingual Q5M PRN chest pain #25 tabs 12/21/21 [Rx Last Taken 04/27/22] albuterol sulfate 90 mcg/actuation aerosol inhaler 2 puff inhalation 4X/DAY PRN Shortness Of Breath 04/27/22 [History Last Taken 04/27/22] aspirin 81 mg chewable tablet 81 mg PO DAILY heart health 04/27/22 [History Last Taken 04/27/22] atorvastatin 80 mg tablet 80 mg PO QHS cholesterol 04/27/22 [History Last Taken 04/26/22] clopidogrel 75 mg tablet (Plavix) 75 mg PO DAILY antiplatelet 04/27/22 [History Last Taken 04/27/22] insulin degludec 200 unit/mL (3 mL) subcutaneous pen (Tresiba FlexTouch U-200 insulin) 50 unit subcut QHS diabetes 04/27/22 [History Last Taken 04/26/22] insulin lispro 200 unit/mL (3 mL) subcutaneous pen (Humalog KwikPen U-200 Insulin) 14 unit subcut TID diabetes 04/27/22 [History Last Taken Unknown] lisinopril 20 mg tablet 20 mg PO BID blood pressure 04/27/22 [History Last Taken 04/27/22] carvedilol 12.5 mg tablet (Coreg) 12.5 mg PO BID #180 tabs 06/05/22 [Rx Last Taken Unknown] isosorbide mononitrate 60 mg tablet,extended release 24 hr 60 tablet PO DAILY 06/05/22 [History Last Taken Unknown] amlodipine 10 mg tablet 10 mg PO DAILY 06/26/22 [History Last Taken Unknown] loratadine 10 mg tablet 10 mg PO DAILY PRN allergies 06/26/22 [History Last Taken Unknown] Allergy/AdvReac Type Severity Reaction Status Date / Time amoxicillin trihydrate Allergy Rash Verified 06/26/22 01:07 [From Augmentin] potassium clavulanate Allergy Rash Verified 06/26/22 01:07 [From Augmentin] codeine AdvReac Nausea Verified 06/26/22 01:07 Family History Sister Myocardial infarction, Onset Age: 41 Diabetes Mother COPD (chronic obstructive pulmonary disease) Asthma Rheumatoid arthritis CVA (cerebral vascular accident) Hypertension Grandmother Diabetes Surgical History History of appendectomy History of coronary artery stent placement (11/18/21) History of hernia repair (2008) History of neck surgery History of umbilical hernia repair (1971) Social History Smoking Status: Current every day smoker tobacco type: cigarettes Tobacco: How many years used: 20 Electronic Cigarette Use: not used second hand exposure: Yes alcohol intake: current alcohol intake frequency: 0-2 drinks per day Alcohol type: beer substance use type: does not use caffeine: Yes Type: carbonated beverages Number of servings: 2 and tea Number of servings: 6 what type of physical activity do you participate in: none ROS ROS ED Constitutional Constitutional ED: Denies chills or fever(s) ENT ENT ED: Denies sore throat Cardiovascular Cardiovascular: Reports chest pain; Denies palpitations or racing heartbeat Respiratory/Chest Respiratory/Chest: Reports dyspnea; Denies cough Gastrointestinal Gastrointestinal: Denies abdominal pain, diarrhea, nausea or vomiting Genitourinary Genitourinary ED: Denies dysuria Musculoskeletal Musculoskeletal: Denies myalgias Integumentary Denies rash Neurologic Neurologic: Denies headache(s) Hematologic/Lymphatic Hematologic/Lymphatic: Reports easy bleeding and easy bruising EXAM Physical Exam Const Vital Signs: 06/26/22 01:03 06/26/22 01:07 06/26/22 01:40 Temperature 97.4 F L Temperature Source Temporal Pulse Rate 97 98 Respiratory Rate 24 H Respiratory Effort Short of Breath Blood Pressure 212/118 H 195/120 H Blood Pressure Mean 149 Pulse Ox 98 Oxygen Delivery Method Room Air 06/26/22 01:41 06/26/22 01:58 06/26/22 02:00 Temperature Temperature Source Pulse Rate 94 96 96 Respiratory Rate 24 H 27 H Respiratory Effort Blood Pressure 195/120 H 186/111 H 189/116 H Blood Pressure Mean 145 140 Pulse Ox 95 94 Oxygen Delivery Method Room Air Room Air 06/26/22 03:00 Temperature Temperature Source Pulse Rate 91 Respiratory Rate 22 H Respiratory Effort Blood Pressure 190/121 H Blood Pressure Mean 144 Pulse Ox 91 Oxygen Delivery Method Room Air Positive well nourished and well developed General Appearance ED: well developed Eyes PERRL and EOMs intact bilaterally Neck supple and no JVD Resp normal respiratory effort Resp Narrative: Breath sounds are diminished throughout with diffuse expiratory wheeze consistent with history of smoking but no signs of respiratory distress Cardio regular rate and regular rhythm Rate: other Other Details: Radial pulses are plus 2 out of 4 bilaterally are equal and symmetric GI normal to inspection, nondistended, normoactive bowel sounds, non-tender and non-distended GI Narrative: No voluntary guarding or rigidity no pulsatile mass Auscultation: normoactive bowel sounds Palpation: soft Extremity normal to inspection Extremity Narrative: No asymmetric edema no pitting edema negative Homans' sign bilaterally Neuro oriented x3 and CN's II-XII intact bilaterally Sensorium / Orientation: alert Psych mental status grossly normal Skin no rashes or lesions noted MDM MDM MDM Narrative Medical decision making narrative: Patient presented to the ER hypertensive but does have a history of high blood pressure. He also has an complicated history of CAD with multiple stents. As he reported chest discomfort with shortness of breath and with his history a cardiac work-up was obtained. His initial troponin was elevated at 110 and chart review reveals his baseline is typically 80. He was given 3 baby aspirin as he reported taking 1 at home as well as 1 sublingual nitro as he took 2 at home. With this pain reduced down to a 3. He was placed on 1 inch of Nitropaste following this. Patient's pain still remained at 3 so he was given morphine and pain reduced to a value of a 1. However his blood pressure reduced but not significantly. The delta troponin did increase 8 points to 118. The patient at this time rates his pain as a 1 still but because of his significant CAD requiring multiple stents I did discuss the case with cardiology Dr. Roberts. He recommends patient be placed on a heparin and nitro drip because of his known CAD with chest pain as well as his persistent hypertension. He also recommends that as the patient's troponin is above baseline and has slightly elevated at the 2-hour delta vicente that he be brought back into the hospital for further evaluation and possible heart cath. The plan of care was discussed with the patient and he is agreeable to it Lab Data Attestation: I reviewed the patient's lab results. Labs: Laboratory Results - last 24 hr 06/26/22 06/26/22 06/26/22 01:09 01:09 03:09 WBC 13.1 H RBC 4.94 Hgb 15.6 Hct 44.0 MCV 89.1 MCH 31.6 MCHC 35.5 RDW Std Deviation 43.9 RDW Coeff of Narcisa 13.4 Plt Count 221 MPV 10.1 Immature Gran % (Auto) 0.700 Neut % (Auto) 60.9 Lymph % (Auto) 26.1 [place] % (Auto) 9.7 Eos % (Auto) 2.1 Baso % (Auto) 0.5 Absolute Neuts (auto) 8.0 H Absolute Lymphs (auto) 3.42 Nucleated RBC % 0 Sodium 140 Potassium 3.8 Chloride 107 Carbon Dioxide 28.0 Anion Gap 5 BUN 18 Creatinine 1.09 Estim Creat Clear Calc 78.44 Est GFR (MDRD) Af Amer 92 Est GFR (MDRD) Non-Af 76 BUN/Creatinine Ratio 16.5 Glucose 186 H Calcium 9.2 Magnesium 2.1 Troponin I High Sens 110 H 118 H Radiography Diagnostic Testing: Clinical Impression(s) from Imaging Studies Chest X-Ray 06/26/22 01:28 IMPRESSION: Mild bibasilar airspace disease. Findings may indicate atelectasis or infection. Electronically Signed: Tereso Celis MD at 2:02 EDT , 1 view chest x-ray as interpreted by the emergency medicine physician reveals atelectasis without acute infiltrate pneumothorax or pleural effusion Critical Care Time Critical Care Time: Yes Critical care time (excluding procedures): - (Critical care time of 33 minutes) Discharge Plan Dx/Rx/DC Orders Clinical Impression: Non-ST elevation (NSTEMI) myocardial infarction, Hypertensive urgency, Diabetes Disposition Disposition: Acute Care Hospital [facility]
[2022-06-26 02:02] LABS: Anion Gap 5 (5-15); BUN 18 mg/dL (7-18); BUN/Creat Ratio 16.5 RATIO (10-20); Calcium,Total 9.2 mg/dL (8.5-10.1); Chloride 107 mmol/L (98-107); Creatinine, Serum 1.09 mg/dL (0.70-1.30); EST Glomerular Filtration Rate 76 mL/min (>60); Est Glom Filt Rate - Afr Amer 92 mL/min (>60); Estimated Creatinine Clearance 78.44 ml/min; Glucose 186 mg/dL (74-106); Magnesium 2.1 mg/dL (1.6-2.6); Potassium 3.8 mmol/L (3.5-5.1); Sodium Level 140 mmol/L (136-145); Troponin-I HS 110 pg/mL (3.0-78.0)
[2022-06-26] MEDS: Morphine 4 MG/ML Syringe IV (03:08)
[2022-06-26] MEDS: Ondansetron 4 MG/2 ML Vial IV (03:08)
[2022-06-26 03:42] LABS: Troponin-I HS 118 pg/mL (3.0-78.0)
[2022-06-26] MEDS: HYDROmorphone 1 MG/ML Syringe IV (04:07)
[2022-06-26] MEDS: Nitroglycerin Infusion 250 ML 3 MG CONT INF (04:16)
[2022-06-26 04:19] LABS: International Normalized Ratio 0.9; Prothrombin Time (Protime)PT. 11.8 SECONDS (11.7-14.9)
[2022-06-26 04:20] LABS: Partial Thromboplast Time 23.9 Seconds (24.1-36.2)
[2022-06-26] MEDS: Heparin Injection (Vial) 5,000 UNIT/ML VIAL 7500 UNIT IV (04:24)
--- NOTE | 2022-06-26 04:25 | PCM.HP.STD ---
HPI - General General Date of Admission: 06/26/22 Date of Service: 06/26/22 Chief Complaint: Chest pain -1 day HPI Narrative LATONYA ELDER, is a 51 M who presents with the above. Patient has past medical history of CAD status post stents, hypertension, hyperlipidemia, chronic tobacco abuse who comes in with complaints of chest pain that woke him up. Patient stated that he started having chest pain at 11:15 PM. He took a tablet of nitro but did not get any relief. He took a second tablet and started to get relief but soon as he laid down to sleep, chest pain came back like it never took anything. Chest pain is substernal, heavy, nonradiating, no diaphoresis or dizziness. Vitals in the ED showed blood pressure 212/118, heart rate 97, respiratory rate 24, temperature 97.4 F, oxygen sat is 98% on room air. WBC count is 13.1, hemoglobin 15.6, platelet 221, INR 0.9, BMP unremarkable. Initial troponin was 110, second troponin was 118. Admitting chest x-ray showed mild bibasilar airspace disease, likely atelectasis. PFSH Medical History Asthma Atherosclerosis of [place] coronary artery of [place] heart without angina pectoris Chronic obstructive pulmonary disease (COPD) Cluster headache Community acquired pneumonia COPD (chronic obstructive pulmonary disease) Coronary artery disease Diabetes Essential hypertension Headache History of non-ST elevation myocardial infarction (NSTEMI) (11/22/20) Hyperlipidemia Insulin dependent diabetes mellitus Ischemic cardiomyopathy Left shoulder pain Migraine Myocardial infarct Nicotine dependence Non-ST elevation [place] (NSTEMI) Obesity Obesity (BMI 30.0-34.9) Smoker Home Medications chlorthalidone 25 mg tablet 25 mg PO DAILY water pill 04/28/21 [History Last Taken 04/27/22] clonidine HCl 0.2 mg tablet 0.2 mg PO BID blood pressure 04/28/21 [History Last Taken 04/27/22] albuterol sulfate 90 mcg/actuation breath activated powder inhaler (ProAir RespiClick) 2 inh inhalation PRN PRN Bronchodilation 11/18/21 [History Last Taken 04/27/22] nitroglycerin 0.4 mg sublingual tablet 0.4 mg sublingual Q5M PRN chest pain #25 tabs 12/21/21 [Rx Last Taken 04/27/22] albuterol sulfate 90 mcg/actuation aerosol inhaler 2 puff inhalation 4X/DAY PRN Shortness Of Breath 04/27/22 [History Last Taken 04/27/22] aspirin 81 mg chewable tablet 81 mg PO DAILY heart health 04/27/22 [History Last Taken 04/27/22] atorvastatin 80 mg tablet 80 mg PO QHS cholesterol 04/27/22 [History Last Taken 04/26/22] clopidogrel 75 mg tablet (Plavix) 75 mg PO DAILY antiplatelet 04/27/22 [History Last Taken 04/27/22] insulin degludec 200 unit/mL (3 mL) subcutaneous pen (Tresiba FlexTouch U-200 insulin) 50 unit subcut QHS diabetes 04/27/22 [History Last Taken 04/26/22] insulin lispro 200 unit/mL (3 mL) subcutaneous pen (Humalog KwikPen U-200 Insulin) 14 unit subcut TID diabetes 04/27/22 [History Last Taken Unknown] lisinopril 20 mg tablet 20 mg PO BID blood pressure 04/27/22 [History Last Taken 04/27/22] carvedilol 12.5 mg tablet (Coreg) 12.5 mg PO BID #180 tabs 06/05/22 [Rx Last Taken Unknown] isosorbide mononitrate 60 mg tablet,extended release 24 hr 60 tablet PO DAILY 06/05/22 [History Last Taken Unknown] amlodipine 10 mg tablet 10 mg PO DAILY 06/26/22 [History Last Taken Unknown] loratadine 10 mg tablet 10 mg PO DAILY PRN allergies 06/26/22 [History Last Taken Unknown] Allergy/AdvReac Type Severity Reaction Status Date / Time amoxicillin trihydrate Allergy Rash Verified 06/26/22 01:07 [From Augmentin] potassium clavulanate Allergy Rash Verified 06/26/22 01:07 [From Augmentin] codeine AdvReac Nausea Verified 06/26/22 01:07 Family History Sister Myocardial infarction, Onset Age: 41 Diabetes Mother COPD (chronic obstructive pulmonary disease) Asthma Rheumatoid arthritis CVA (cerebral vascular accident) Hypertension Grandmother Diabetes Surgical History History of appendectomy History of coronary artery stent placement (11/18/21) History of hernia repair (2008) History of neck surgery History of umbilical hernia repair (1971) Social History Smoking Status: Current every day smoker tobacco type: cigarettes Tobacco: How many years used: 20 Electronic Cigarette Use: not used second hand exposure: Yes alcohol intake: current alcohol intake frequency: 0-2 drinks per day Alcohol type: beer substance use type: does not use caffeine: Yes Type: carbonated beverages Number of servings: 2 and tea Number of servings: 6 what type of physical activity do you participate in: none ROS ROS Narrative Constitutional: Denies: Anorexia, Chills, Fever, Night Sweats, Weight Change Eyes: Denies: Blurred vision, Cataracts, Conjunctivae Inflammation, Pain, Redness, Vision Change HEENT: Denies: Difficulty Hearing, Difficulty Swallowing, Head Aches, Hearing Changes, Sinus Congestion, Sinus Drainage Cardiovascular: See HPI Respiratory: Denies: Cough, Shortness of breath at rest, Sputum production Gastrointestinal: Denies: Abdominal Pain, Nausea, Vomiting Genitourinary: Denies: Dysuria Musculoskeletal: Denies: Joint Pain, Joint stiffness, Joint swelling, Joint Tenderness Skin: Denies: Rash, Wounds Neurological: Denies: Numbness, Tingling, Focal weakness Vital Signs Vital Signs Vital Signs: 06/26/22 01:03 06/26/22 01:07 06/26/22 01:40 Temperature 97.4 F L Temperature Source Temporal Pulse Rate 97 98 Respiratory Rate 24 H Respiratory Effort Short of Breath Blood Pressure 212/118 H 195/120 H Blood Pressure Mean 149 Blood Pressure Position Blood Pressure Location Pulse Ox 98 Oxygen Delivery Method Room Air 06/26/22 01:41 06/26/22 01:58 06/26/22 02:00 Temperature Temperature Source Pulse Rate 94 96 96 Respiratory Rate 24 H 27 H Respiratory Effort Blood Pressure 195/120 H 186/111 H 189/116 H Blood Pressure Mean 145 140 Blood Pressure Position Blood Pressure Location Pulse Ox 95 94 Oxygen Delivery Method Room Air Room Air 06/26/22 03:00 06/26/22 04:16 Temperature Temperature Source Pulse Rate 91 89 Respiratory Rate 22 H Respiratory Effort Blood Pressure 190/121 H 198/120 H Blood Pressure Mean 144 146 Blood Pressure Position Semi-Fowlers Blood Pressure Location Left Arm Pulse Ox 91 Oxygen Delivery Method Room Air Weight Weight: 101.4 kg Body Mass Index (BMI) 34.0 Physical Exam Narrative Physical exam: General: Alert, Oriented x3, Cooperative, in mild discomfort from pain HEENT: Atraumatic Oral: Moist Mucosa Neck: Supple Lungs: Diminished to auscultation Cardiovascular: HS I+II, regular, no murmurs Abdomen: Bowel Sounds Present, Soft, Non Tender Extremities: No edema Skin: No rashes, No breakdown Neurological: Grossly intact Psych/Mental Status: Appropriate Results Lab / Micro Data Result Diagrams: 06/26/22 01:09 06/26/22 01:09 Labs: Laboratory Results - last 24 hr 06/26/22 01:09: WBC 13.1 H, RBC 4.94, Hgb 15.6, Hct 44.0, MCV 89.1, MCH 31.6, MCHC 35.5, RDW Std Deviation 43.9, RDW Coeff of Narcisa 13.4, Plt Count 221, MPV 10.1, Immature Gran % (Auto) 0.700, Neut % (Auto) 60.9, Lymph % (Auto) 26.1, [place] % (Auto) 9.7, Eos % (Auto) 2.1, Baso % (Auto) 0.5, Absolute Neuts (auto) 8.0 H, Absolute Lymphs (auto) 3.42, Nucleated RBC % 0 06/26/22 01:09: Sodium 140, Potassium 3.8, Chloride 107, Carbon Dioxide 28.0, Anion Gap 5, BUN 18, Creatinine 1.09, Estim Creat Clear Calc 78.44, Est GFR (MDRD) Af Amer 92, Est GFR (MDRD) Non-Af 76, BUN/Creatinine Ratio 16.5, Glucose 186 H, Calcium 9.2, Magnesium 2.1, Troponin I High Sens 110 H 06/26/22 03:09: Troponin I High Sens 118 H 06/26/22 04:00: PT 11.8, INR 0.9, APTT 23.9 L Radiology Impression Chest X-Ray 06/26/22 01:28 IMPRESSION: Mild bibasilar airspace disease. Findings may indicate atelectasis or infection. Electronically Signed: Tereso Celis MD at 2:02 EDT , Assessment & Plan Assessment/Plan (1) Non-ST elevation (NSTEMI) myocardial infarction: PLAN: Plan 1. Acute NSTEMI in a patient with known history of CAD status post stents Patient continues to smoke and drink alcohol Presented with chest pain, no acute ST elevation on EKG Continues to have chest discomfort, started on heparin and nitro drip Patient later stress test done in January 2022 showed mild perfusion defect noted in the apex suggestive of previous apical infarct, EF 44% Cardiology consulted, possible cardiac cath in a.m. 2. Hypertensive emergency, patient presented blood pressure 212/118, stated that he has been taking his medications Started on nitro drip, continue home blood pressure regimen 3. Type 2 DM, insulin-dependent, continue home insulin regimen with insulin sliding scale 4. Nicotine dependence, advised to quit, will continue on replacement 5. DVT prophylaxis - Heparin drip Charges/Coding Visit Charges Inpatient E&M: 82394 Init Hosp L3
[2022-06-26] MEDS: HEPARIN/D5w 25,000 UNITS 25,000 UNITS/250 ML IV.SOLN. 10 UNITS CONT INF (04:26)
--- NOTE | 2022-06-26 05:31 | ED.RN ---
VERBAL ORDER FROM DR RIVERA. TO ONLY GIVE HEPARIN BOLUS OF 5000 UNITS IV AND START HEPARIN DRIP @ 1000 UNITS/HR.
[2022-06-26 07:05] LABS: Bedside Glucose 153 mg/dL (74-106)
[2022-06-26 07:05] LABS: Absolute Lymphocyte Count 3.53 X10^3/uL (0.83-4.51); Absolute Neutrophil Count 7.3 X10^3/uL (2.0-7.7); Basophil# 0.08 X10^3/uL; Basophil% 0.6 % (0-1); Eosinophil# 0.29 X10^3/uL; Eosinophils% 2.3 % (0-5); Hematocrit 43.8 % (40-54); Hemoglobin 14.8 g/dL (13.0-16.5); Lymphocyte # 3.53 X10^3/ul (0.83-4.51); Lymphocyte % 28.3 % (19-41); Mean Corp Hgb Conc 33.8 g/dL (32-36); Mean Corpuscular Hgb 30.5 pg (27.0-32.0); Mean Corpuscular Volume 90.1 fL (80-94); Mean Platelet Vol. 10.5 fl (6.2-12.0); Monocyte% 9.6 % (0-10); NRBC Flagged by Analyzer 0 % (0-5); Neutrophil # 7.29 X10^3/uL (2.7-7.7); Neutrophil % 58.6 % (47-70); Platelet Count 239 K/mm3 (150-450); RBC Distribution Width CV 13.8 % (11.6-14.6); RBC Distribution Width SD 45.3 fl (35.1-43.9); Red Blood Count 4.86 M/mm3 (4.6-6.2); White Blood Count 12.5 K/mm3 (4.4-11.0)
[2022-06-26 07:22] LABS: ALB/GLOB Ratio 0.8 RATIO (0.9-2.4); AST(SGOT) 31 U/L (15-37); Alanine Aminotransfer ALT/SGPT 22 U/L (16-61); Albumin, Serum 3.2 g/dL (3.2-5.0); Alkaline Phosphatase 84 U/L (45-117); Anion Gap 5 (5-15); BUN 17 mg/dL (7-18); BUN/Creat Ratio 19.6 RATIO (10-20); Calcium,Total 8.4 mg/dL (8.5-10.1); Chloride 106 mmol/L (98-107); Creatinine, Serum 0.87 mg/dL (0.70-1.30); EST Glomerular Filtration Rate 99 mL/min (>60); Est Glom Filt Rate - Afr Amer 119 mL/min (>60); Estimated Creatinine Clearance 98.28 ml/min; Globulin 3.9 g/dL (2.2-4.2); Glucose 157 mg/dL (74-106); Potassium 4.6 mmol/L (3.5-5.1); Protein, Total 7.1 g/dL (6.4-8.2); Sodium Level 138 mmol/L (136-145)
[2022-06-26] MEDS: Acetaminophen 325 MG Tablet 650 MG PO (07:34)
[2022-06-26 07:48] LABS: Troponin-I HS 127 pg/mL (3.0-78.0)
--- NOTE | 2022-06-26 07:56 | PCM.CONS.C ---
Assessment & Plan Assessment/Plan (1) Hypertensive urgency: PLAN: He does present with hypertensive urgency. The etiology of which is not entirely clear. I suspect that there is some element of medication noncompliance. In addition he is on clonidine and I suspect that he is having some rebound from the above. I would like to reevaluate his antihypertensive medication and increase his carvedilol to 25 mg twice a day Continue amlodipine Continue MIO inhibitor Reduce clonidine with a goal of eventually weaning him off this medication (2) Essential hypertension: PLAN: We will continue to treat his blood pressure aggressively. Have made some changes to his medication and hopefully he should be able to go home within 24 hrs (3) Atherosclerosis of [place] coronary artery of [place] heart without angina pectoris: PLAN: He does have a history of known coronary artery disease. He underwent cardiac catheterization less than 2 months ago. I do not think that his current presentation warrants another cardiac catheterization. His minimal troponin elevation which has a flat curve is not suggestive of a non-ST elevation or myocardial infarction. HPI Consult Data Date of Consult: 06/26/22 HPI Narrative HPI Narrative: LATONYA ELDER, is a 51 M who presents to the emergency room after experiencing chest discomfort described as a chest tightness. He does have a history of known coronary artery disease status post multiple interventions and medication noncompliance. In the emergency room he was noted to be markedly hypertensive. He was admitted to the intensive care unit with a nitroglycerin drip. He has a history of non-ST elevated myocardial infarction in November 2016 with drug-eluting stent to second obtuse marginal branch.? He also has history of hypertension, hyperlipidemia, and tobacco abuse with 0.5 pack day.? He had presented to the hospital in November of 2020 with a non-ST elevation myocardial infarction and underwent a cardiac catheterization which demonstrated previously placed stent in the LAD which was patent, the left circumflex artery with mild in-stent stenosis, and new disease involving the proximal mid and distal right coronary artery for which he underwent angioplasty and stenting.? He was diagnosed with diabetes in April 2021 during hospital visit for DKA. In October of 2021 he presented to the emergency room with chest discomfort, he underwent a cardiac catheterization which resulted in a successful WAN to the mid LAD. He presented to the emergency room again on 12/20/21 with chest discomfort, he was evaluated- his troponins did not increase and he was sent home to follow up with cardiology. [facility] [address] [place] [address] OFFICE VISIT Date of Service:? 06/05/22 MR#: [id number] Acct: [id number] Name:LATONYA PATEL Rep #: [id number] : 1970 ? ? Provider: ?BAYLEE Morel Age/Sex:? 51/M ? ? Location: [facility] Status: Signed HPI [facility] History of Present Illness Details: LATONYA ELDER, is a 51 M who presents to the office today for a hospital follow-up.? He has a history of non-ST elevated myocardial infarction in November 2016 with drug-eluting stent to second obtuse marginal branch.? He also has history of hypertension, hyperlipidemia, and tobacco abuse with 0.5 pack day.? He had presented to the hospital in November of 2020 with a non-ST elevation myocardial infarction and underwent a cardiac catheterization which demonstrated previously placed stent in the LAD which was patent, the left circumflex artery with mild in-stent stenosis, and new disease involving the proximal mid and distal right coronary artery for which he underwent angioplasty and stenting.? He was diagnosed with diabetes in April 2021 during hospital visit for DKA. In October of 2021 he presented to the emergency room with chest discomfort, he underwent a cardiac catheterization which resulted in a successful WAN to the mid LAD. He presented to the emergency room again on 12/20/21 with chest discomfort, he was evaluated- his troponins did not increase and he was sent home to follow up with cardiology. He was recently in the hospital in April of this year with chest discomfort again and underwent cardiac catheterization which demonstrated the following: Short left main coronary artery which was angiographically normal: The previously placed LAD stent which was patent with 50% stenosis and an IFR which was normal, patency of the stent in the mid LAD, OM stent which was patent with 40% stenosis, circumflex artery in the AV groove with no significant disease, and a large dominant right coronary artery which had a stent which was patent in the posterior descending artery with 50% stenosis. Medical therapy was recommended. His estimated ejection fraction has been in the 50 to 55% range. His EKG demonstrated nonspecific changes and his cardiac enzymes were minimally elevated. He does not have any chest discomfort at this particular time. [facility] Medical History Asthma Atherosclerosis of [place] coronary artery of [place] heart without angina pectoris Chronic obstructive pulmonary disease (COPD) Cluster headache Community acquired pneumonia COPD (chronic obstructive pulmonary disease) Coronary artery disease Diabetes Essential hypertension Headache History of non-ST elevation myocardial infarction (NSTEMI) (11/22/20) Hyperlipidemia Insulin dependent diabetes mellitus Ischemic cardiomyopathy Left shoulder pain Migraine Myocardial infarct Nicotine dependence Non-ST elevation [place] (NSTEMI) Obesity Obesity (BMI 30.0-34.9) Smoker Home Medications chlorthalidone 25 mg tablet 25 mg PO DAILY water pill 04/28/21 [History Last Taken 04/27/22] clonidine HCl 0.2 mg tablet 0.2 mg PO BID blood pressure 04/28/21 [History Last Taken 04/27/22] albuterol sulfate 90 mcg/actuation breath activated powder inhaler (ProAir RespiClick) 2 inh inhalation PRN PRN Bronchodilation 11/18/21 [History Last Taken 04/27/22] nitroglycerin 0.4 mg sublingual tablet 0.4 mg sublingual Q5M PRN chest pain #25 tabs 12/21/21 [Rx Last Taken 04/27/22] albuterol sulfate 90 mcg/actuation aerosol inhaler 2 puff inhalation 4X/DAY PRN Shortness Of Breath 04/27/22 [History Last Taken 04/27/22] aspirin 81 mg chewable tablet 81 mg PO DAILY heart health 04/27/22 [History Last Taken 04/27/22] atorvastatin 80 mg tablet 80 mg PO QHS cholesterol 04/27/22 [History Last Taken 04/26/22] clopidogrel 75 mg tablet (Plavix) 75 mg PO DAILY antiplatelet 04/27/22 [History Last Taken 04/27/22] insulin degludec 200 unit/mL (3 mL) subcutaneous pen (Tresiba FlexTouch U-200 insulin) 50 unit subcut QHS diabetes 04/27/22 [History Last Taken 04/26/22] insulin lispro 200 unit/mL (3 mL) subcutaneous pen (Humalog KwikPen U-200 Insulin) 14 unit subcut TID diabetes 04/27/22 [History Last Taken Unknown] lisinopril 20 mg tablet 20 mg PO BID blood pressure 04/27/22 [History Last Taken 04/27/22] carvedilol 12.5 mg tablet (Coreg) 12.5 mg PO BID #180 tabs 06/05/22 [Rx Last Taken Unknown] isosorbide mononitrate 60 mg tablet,extended release 24 hr 60 tablet PO DAILY 06/05/22 [History Last Taken Unknown] amlodipine 10 mg tablet 10 mg PO DAILY 06/26/22 [History Last Taken Unknown] loratadine 10 mg tablet 10 mg PO DAILY PRN allergies 06/26/22 [History Last Taken Unknown] Allergy/AdvReac Type Severity Reaction Status Date / Time amoxicillin trihydrate Allergy Rash Verified 06/26/22 01:07 [From Augmentin] potassium clavulanate Allergy Rash Verified 06/26/22 01:07 [From Augmentin] codeine AdvReac Nausea Verified 06/26/22 01:07 Family History Sister Myocardial infarction, Onset Age: 41 Diabetes Mother COPD (chronic obstructive pulmonary disease) Asthma Rheumatoid arthritis CVA (cerebral vascular accident) Hypertension Grandmother Diabetes Surgical History History of appendectomy History of coronary artery stent placement (11/18/21) History of hernia repair (2008) History of neck surgery History of umbilical hernia repair (1971) Social History Smoking Status: Current every day smoker tobacco type: cigarettes Tobacco: How many years used: 20 Electronic Cigarette Use: not used second hand exposure: Yes alcohol intake: current alcohol intake frequency: 0-2 drinks per day Alcohol type: beer substance use type: does not use caffeine: Yes Type: carbonated beverages Number of servings: 2 and tea Number of servings: 6 what type of physical activity do you participate in: none Physical Exam Const alert, oriented x3 and no apparent distress General Appearance: cooperative HEENT hearing grossly normal bilaterally Head and Scalp: atraumatic Eyes EOMs intact bilaterally Neck General: normal visual inspection Chest inspection of chest normal and palpation of chest normal Resp normal respiratory effort Auscultation: clear to auscultation bilaterally Cardio regular rate, regular rhythm, S1 normal heart sound and S2 normal heart sound Jugular Venous Distention: JVD GI normal to inspection, nondistended, normoactive bowel sounds Extremity normal capillary refill and no pedal edema Peripheral Pulses: Yes pulses 2+ throughout and femoral pulses present Skin no rashes or lesions noted Neuro oriented x3 and CN's II-XII intact bilaterally Psych Appearance: grossly normal and appropriate Risk Stratification Risk Stratification Applicable: No Objective Data Vital Signs: Vital Signs Temp Pulse Resp BP Pulse Ox O2 Del Method 98.7 F 88 12 207/112 H 92 Room Air 06/26/22 04:53 06/26/22 07:20 06/26/22 07:00 06/26/22 07:00 06/26/22 07:00 06/26/22 07:00 Oxygen Delivery Method Room Air Weight: 223 lb 8.78 oz Body Mass Index (BMI) 34.0 Intake & Output: Intake and Output for Last 24 Hours 06/24/22 06/25/22 06/26/22 23:59 23:59 23:59 Intake Total 248.12 / 248.12 Output Total 300 / 300 Balance -51.88 / -51.88 Lab / Micro Data Result Diagrams: 06/26/22 06:40 06/26/22 06:40 Labs: Laboratory Results - last 24 hr 06/26/22 01:09: WBC 13.1 H, RBC 4.94, Hgb 15.6, Hct 44.0, MCV 89.1, MCH 31.6, MCHC 35.5, RDW Std Deviation 43.9, RDW Coeff of Narcisa 13.4, Plt Count 221, MPV 10.1, Immature Gran % (Auto) 0.700, Neut % (Auto) 60.9, Lymph % (Auto) 26.1, [place] % (Auto) 9.7, Eos % (Auto) 2.1, Baso % (Auto) 0.5, Absolute Neuts (auto) 8.0 H, Absolute Lymphs (auto) 3.42, Nucleated RBC % 0 06/26/22 01:09: Sodium 140, Potassium 3.8, Chloride 107, Carbon Dioxide 28.0, Anion Gap 5, BUN 18, Creatinine 1.09, Estim Creat Clear Calc 78.44, Est GFR (MDRD) Af Amer 92, Est GFR (MDRD) Non-Af 76, BUN/Creatinine Ratio 16.5, Glucose 186 H, Calcium 9.2, Magnesium 2.1, Troponin I High Sens 110 H 06/26/22 03:09: Troponin I High Sens 118 H 06/26/22 04:00: PT 11.8, INR 0.9, APTT 23.9 L 06/26/22 06:37: POC Glucose 153 H 06/26/22 06:40: WBC 12.5 H, RBC 4.86, Hgb 14.8, Hct 43.8, MCV 90.1, MCH 30.5, MCHC 33.8, RDW Std Deviation 45.3 H, RDW Coeff of Narcisa 13.8, Plt Count 239, MPV 10.5, Immature Gran % (Auto) 0.600, Neut % (Auto) 58.6, Lymph % (Auto) 28.3, [place] % (Auto) 9.6, Eos % (Auto) 2.3, Baso % (Auto) 0.6, Absolute Neuts (auto) 7.3, Absolute Lymphs (auto) 3.53, Nucleated RBC % 0 06/26/22 06:40: Sodium 138, Potassium 4.6, Chloride 106, Carbon Dioxide 27.0, Anion Gap 5, BUN 17, Creatinine 0.87, Estim Creat Clear Calc 98.28, Est GFR (MDRD) Af Amer 119, Est GFR (MDRD) Non-Af 99, BUN/Creatinine Ratio 19.6, Glucose 157 H, Calcium 8.4 L, Total Bilirubin 0.50, AST 31, ALT 22, Alkaline Phosphatase 84, Total Protein 7.1, Albumin 3.2, Globulin 3.9, Albumin/Globulin Ratio 0.8 L 06/26/22 06:40: Troponin I High Sens 127 H* Cardiology Labs/Tests 06/26/22 01:09: WBC 13.1 H, RBC 4.94, Hgb 15.6, Hct 44.0, MCV 89.1, MCH 31.6, MCHC 35.5, Plt Count 221, MPV 10.1, Immature Gran % (Auto) 0.700, Neut % (Auto) 60.9, Lymph % (Auto) 26.1, [place] % (Auto) 9.7, Eos % (Auto) 2.1, Baso % (Auto) 0.5, Absolute Neuts (auto) 8.0 H, Nucleated RBC % 0 06/26/22 01:09: Sodium 140, Potassium 3.8, Chloride 107, Carbon Dioxide 28.0, Anion Gap 5, BUN 18, Creatinine 1.09, Est GFR (MDRD) Af Amer 92, Est GFR (MDRD) Non-Af 76, BUN/Creatinine Ratio 16.5, Glucose 186 H, Calcium 9.2, Magnesium 2.1 06/26/22 04:00: PT 11.8, INR 0.9, APTT 23.9 L 06/26/22 06:40: WBC 12.5 H, RBC 4.86, Hgb 14.8, Hct 43.8, MCV 90.1, MCH 30.5, MCHC 33.8, Plt Count 239, MPV 10.5, Immature Gran % (Auto) 0.600, Neut % (Auto) 58.6, Lymph % (Auto) 28.3, [place] % (Auto) 9.6, Eos % (Auto) 2.3, Baso % (Auto) 0.6, Absolute Neuts (auto) 7.3, Nucleated RBC % 0 06/26/22 06:40: Sodium 138, Potassium 4.6, Chloride 106, Carbon Dioxide 27.0, Anion Gap 5, BUN 17, Creatinine 0.87, Est GFR (MDRD) Af Amer 119, Est GFR (MDRD) Non-Af 99, BUN/Creatinine Ratio 19.6, Glucose 157 H, Calcium 8.4 L, Total Bilirubin 0.50 Rhythm: EKG: ECHO: Stress Test: Cardiac Cath: PCI: CT Surgery: Holter monitor: EPS: PPM: CXR: Chest CT Scan: Radiography Diagnostic Testing: Radiology Impression Chest X-Ray 06/26/22 01:28 IMPRESSION: Mild bibasilar airspace disease. Findings may indicate atelectasis or infection. Electronically Signed: Tereso Celis MD at 2:02 EDT ,
[2022-06-26] MEDS: cloNIDine HCl 0.1 MG Tablet PO (08:30)
[2022-06-26] MEDS: amLODIPine 10 MG Tablet PO (08:30)
[2022-06-26] MEDS: Lisinopril 20 MG Tablet PO (08:31)
[2022-06-26] MEDS: Isosorbide Mononitrate 60 MG Tablet PO (08:31)
[2022-06-26] MEDS: Chlorthalidone 50 MG Tablet 25 MG PO (08:31)
[2022-06-26] MEDS: Clopidogrel Bisulfate 75 MG Tablet PO (08:31)
--- NOTE | 2022-06-26 09:35 | CASEMGMT ---
RN TRISTIAN Face to Face with patient for initial transition planning/care coordination assessment. RN CM introduced self and role at [facility]. Patient sitting in chair, alert and oriented. Patient willing to participate in assessment and is able to answer all questions appropriately. Care providers, pharmacy, and demographics verified. Patient wishes to discharge home, denies need for home health at this time. Patient states he has no further needs or concerns at this time. CM to follow for discharge planning needs that may arise. PCP: Jamir Specialists: King cash application representative; Jerad linux server administrator [facility]acy[facility] Insurance: MMO Prescription Benefit: yes Living Will/HPOA: none LNOK: Living Arrangements: Patient lives with in a 2nd floor apartment. Patient states he is independent and able to ambulate stairs. Transportation: self, DME/HHC: Patient states he has glucometer, insulin, and supplies at home. Patient also has nebulizer. No previous HHC Disposition Plan: Patient to discharge with family support and follow-up plans in place. Roya MUÑOZ, RN, CM
[2022-06-26 11:30] LABS: Bedside Glucose 217 mg/dL (74-106)
[2022-06-26] MEDS: Insulin Lispro 100 UNIT/ML INSULN.PEN 6 UNIT SC (11:54)
--- NOTE | 2022-06-26 13:14 | DS.PCM_ITS ---
Providers Date of Admission: 06/26/22 Date of Discharge: 06/26/22 Primary Care Physician: Dr. Sivan Bowie MD Reason For Visit: HYPERTENSIVE URGENCY Diagnosis Discharge Diagnosis (1) Hypertensive urgency: Status: Acute Code(s): I16.0 - Hypertensive urgency (2) Essential hypertension: Status: Acute Code(s): I10 - Essential (primary) hypertension (3) Atherosclerosis of [place] coronary artery of [place] heart without angina pectoris: Status: Acute Code(s): I25.10 - Atherosclerotic heart disease of [place] coronary artery without angina pectoris Medications at Discharge Home Medications chlorthalidone 25 mg tablet 25 mg PO DAILY water pill 04/28/21 albuterol sulfate 90 mcg/actuation breath activated powder inhaler (ProAir RespiClick) 2 inh inhalation PRN PRN Bronchodilation 11/18/21 nitroglycerin 0.4 mg sublingual tablet 0.4 mg sublingual Q5M PRN chest pain #25 tabs 12/21/21 albuterol sulfate 90 mcg/actuation aerosol inhaler 2 puff inhalation 4X/DAY PRN Shortness Of Breath 04/27/22 aspirin 81 mg chewable tablet 81 mg PO DAILY heart health 04/27/22 atorvastatin 80 mg tablet 80 mg PO QHS cholesterol 04/27/22 clopidogrel 75 mg tablet (Plavix) 75 mg PO DAILY antiplatelet 04/27/22 insulin degludec 200 unit/mL (3 mL) subcutaneous pen (Tresiba FlexTouch U-200 insulin) 50 unit subcut QHS diabetes 04/27/22 insulin lispro 200 unit/mL (3 mL) subcutaneous pen (Humalog KwikPen U-200 Insulin) 14 unit subcut TID diabetes 04/27/22 lisinopril 20 mg tablet 20 mg PO BID blood pressure 04/27/22 isosorbide mononitrate 60 mg tablet,extended release 24 hr 60 tablet PO DAILY 06/05/22 amlodipine 10 mg tablet 10 mg PO DAILY 06/26/22 carvedilol 25 mg tablet 25 mg PO BIDCM #60 tabs 06/26/22 clonidine HCl 0.1 mg tablet 0.1 mg PO BID #60 tabs 06/26/22 loratadine 10 mg tablet 10 mg PO DAILY PRN allergies 06/26/22 Hospital Course Operations None Procedures EKG Summary of Care Provided Minutes Spent on Discharge: 36 Hospital Course: Mr. Morrison is a 51-year-old white male who presented to the emergency department [facility] early this morning on 06/26/2022 complaining of chest discomfort that he described as tightness. He had a known history of coronary artery disease and has had multiple interventions previously. He has noted medication noncompliance as well as continued smoking. In the emergency department he was noted to be markedly hypertensive and he was admitted to the intensive care unit and placed on a nitroglycerin drip at the request of cardiology for cardiac catheterization today. However, the patient was seen by cardiology and was noted to just have a cardiac catheterization on 05/10/2022 at which time no significant disease was found. He did have mild troponin elevation however it was felt this was most likely related to his marked hypertension and hypertensive emergency rather than any coronary disease specifically. Her troponin curve was quite flat as well. Cardiology recommended continuing his amlodipine and MIO inhibitor and reducing his Klonopin with the goal of eventually weaning him off of this medication. His dose on admission was 0.2 mg twice daily and he was weaned to 0.1 mg twice daily and given 1 month supply for this. His Coreg was also increased from 12.5 mg twice daily to 25 mg twice daily. His blood pressure on admission was 200/127 and decreased steadily after he was placed on a nitroglycerin drip. After the nitroglycerin drip was discontinued and his home medications were increased his blood pressures were in the 150s over 90s. It was felt he was stable for discharge with continued close follow-up for increased titration of his blood pressure medications if needed as an outpatient. Is recommended he follow-up with his primary care physician within the next 2-week as well as cardiology appointment was made for him within the next 2 weeks as well. Prescriptions for his increased Coreg dose and his change in amlodipine dose were sent to his pharmacy. He was discharged home in stable condition on 06/26/2022. Discharge diagnoses: Hypertensive emergency-resolved -Patient with chest pain and elevated troponin Troponin elevation secondary to the above Essential hypertension CAD Hyperlipidemia DM-2 COPD Ischemic cardiomyopathy Tobacco abuse Obesity Physical Exam Const alert, oriented x3, no apparent distress, average body habitus, no limitations, healthy appearing and well nourished Constitutional Narrative: Please white male sitting up in a chair at the bedside, appears comfortable nontoxic, complains only of a headache related to the nitroglycerin, states chest pain has resolved. General Appearance: cooperative, comfortable, well kempt and well developed Exam Limitations: no limitations Nutritional Appearance: obese HEENT normocephalic, head/scalp atraumatic, hearing grossly normal bilaterally and sita st oral mucous membranes HEENT Narrative: Mallampati 2, no thrush Eyes PERRL, EOMs intact bilaterally and conjunctivae normal Eyes Narrative: No scleral icterus Neck no lymphadenopathy, supple, no JVD and no carotid bruits Neck Narrative: Trachea midline, no thyroid enlargement Resp normal respiratory effort, no retractions, no use of accessory muscles and clear to auscultation bilaterally Auscultation: crackles, rales, rhonchi and wheezes Cardio regular rate, regular rhythm, S1 normal heart sound, S2 normal heart sound, no murmurs, no rub, no gallops, no clicks and no JVD GI normal to inspection, nondistended, normoactive bowel sounds, soft to palpation, non-tender and non-distended; Negative for hepatosplenomegaly Extremity no clubbing, cyanosis or edema Skin no rashes or lesions noted, no wounds, skin turgor normal and no jaundice Neuro oriented x3, CN's II-XII intact bilaterally, moves all extremities, no focal motor deficits and no sensory deficits noted Sensorium / Orientation: awake, alert, oriented to person, oriented to place and oriented to time Speech: speech normal Motor Exam: strength 5/5 throughout Psych affect normal Psych Narrative: Appropriately interactive Weight / BMI Weight Weight: 101.4 kg Body Mass Index (BMI) 34.0 ABG / Lab / Microbiology Data Result Diagrams: 06/26/22 06:40 06/26/22 06:40 Laboratory: Laboratory Results - last 24 hr 06/26/22 01:09: WBC 13.1 H, RBC 4.94, Hgb 15.6, Hct 44.0, MCV 89.1, MCH 31.6, MCHC 35.5, RDW Std Deviation 43.9, RDW Coeff of Narcisa 13.4, Plt Count 221, MPV 10.1, Immature Gran % (Auto) 0.700, Neut % (Auto) 60.9, Lymph % (Auto) 26.1, Harrison % (Auto) 9.7, Eos % (Auto) 2.1, Baso % (Auto) 0.5, Absolute Neuts (auto) 8.0 H, Absolute Lymphs (auto) 3.42, Nucleated RBC % 0 06/26/22 01:09: Sodium 140, Potassium 3.8, Chloride 107, Carbon Dioxide 28.0, Anion Gap 5, BUN 18, Creatinine 1.09, Estim Creat Clear Calc 78.44, Est GFR (MDRD) Af Amer 92, Est GFR (MDRD) Non-Af 76, BUN/Creatinine Ratio 16.5, Glucose 186 H, Calcium 9.2, Magnesium 2.1, Troponin I High Sens 110 H 06/26/22 03:09: Troponin I High Sens 118 H 06/26/22 04:00: PT 11.8, INR 0.9, APTT 23.9 L 06/26/22 06:37: POC Glucose 153 H 06/26/22 06:40: WBC 12.5 H, RBC 4.86, Hgb 14.8, Hct 43.8, MCV 90.1, MCH 30.5, MCHC 33.8, RDW Std Deviation 45.3 H, RDW Coeff of Narcisa 13.8, Plt Count 239, MPV 10.5, Immature Gran % (Auto) 0.600, Neut % (Auto) 58.6, Lymph % (Auto) 28.3, Harrison % (Auto) 9.6, Eos % (Auto) 2.3, Baso % (Auto) 0.6, Absolute Neuts (auto) 7.3, Absolute Lymphs (auto) 3.53, Nucleated RBC % 0 06/26/22 06:40: Sodium 138, Potassium 4.6, Chloride 106, Carbon Dioxide 27.0, Anion Gap 5, BUN 17, Creatinine 0.87, Estim Creat Clear Calc 98.28, Est GFR (MDRD) Af Amer 119, Est GFR (MDRD) Non-Af 99, BUN/Creatinine Ratio 19.6, Glucose 157 H, Calcium 8.4 L, Total Bilirubin 0.50, AST 31, ALT 22, Alkaline Phosphatase 84, Total Protein 7.1, Albumin 3.2, Globulin 3.9, Albumin/Globulin Ratio 0.8 L 06/26/22 06:40: Troponin I High Sens 127 H* 06/26/22 11:11: POC Glucose 217 H Radiography Diagnostic Testing: Radiology Impression Chest X-Ray 06/26/22 01:28 IMPRESSION: Mild bibasilar airspace disease. Findings may indicate atelectasis or infection. Electronically Signed: Tereso Celis MD at 2:02 EDT , D/C Instructions Discharge Diet: Low fat / Low cholesterol and 1800 Calorie Control Diet Discharge Activity: Return to Normal Activity Return to work on: 06/28/22 May resume sexual activity in: No Restrictions Meaningful Use Info Meaningful Use Diagnoses (Choose all that apply): None applicable Discharge Plan Admission Admit Date/Time: 06/26/22 04:14 Primary Reason for Your Visit: Chest Pain Attending Provider: Kay Mars Primary Care Provider: Sivan Bowie Consulting Providers: Elizabeth Davila Instructions Forms: Work / School Excuse Discharge Orders/Prescriptions Prescriptions: New carvedilol 25 mg Tablet 25 mg PO BIDCM Qty: 60 0RF clonidine HCl 0.1 mg Tablet 0.1 mg PO BID Qty: 60 0RF Continued nitroglycerin 0.4 mg tablet, sublingual 0.4 mg sublingual Q5M PRN (Reason: chest pain) Qty: 25 3RF Rx Instructions: do not exceed 3 doses per episode isosorbide mononitrate 60 mg tablet extended release 24 hr 60 tablet PO DAILY chlorthalidone 25 mg tablet 25 mg PO DAILY Label Comments: take 1 tablet by mouth once daily ProAir RespiClick 90 mcg/actuation aerosol powdr breath activated 2 inh INHALATION PRN PRN (Reason: Bronchodilation) albuterol sulfate 90 mcg/actuation HFA aerosol inhaler 2 puff INHALATION 4X/DAY PRN (Reason: Shortness Of Breath) Label Comments: inhale 2 puffs INTO THE LUNGS UP TO FOUR TIMES A DAY NEEDED atorvastatin 80 mg tablet 80 mg PO QHS lisinopril 20 mg tablet 20 mg PO BID clopidogrel [Plavix] 75 mg tablet 75 mg PO DAILY aspirin 81 MG tablet,chewable 81 mg PO DAILY Tresiba FlexTouch U-200 200 unit/mL (3 mL) insulin pen 50 unit subcut QHS Humalog KwikPen Insulin 200 unit/mL (3 mL) insulin pen 14 unit subcut TID Protocol: 4. Sliding Scale Insulin High-Med Dosing Condition: 150-199 mg/dl = 2 units Condition: 200-259 mg/dl = 4 units Condition: 260-324 mg/dl = 6 units Condition: 325-374 mg/dl = 8 units Condition: 375-409 mg/dl = 10 units Condition: 410-449 mg/dl = 11 units Condition: Greater than 449 call physician Protocol Text: - Use for Total Daily Dose of Insulin 56-80 units - Patient who are insulin resistant or septic HIGH MEDIUM DOSING ALGORITHM amlodipine 10 mg tablet 10 mg PO DAILY loratadine 10 mg tablet 10 mg PO DAILY PRN (Reason: allergies) Discontinued carvedilol [Coreg] 12.5 mg tablet 12.5 mg PO BID Qty: 180 3RF Rx Instructions: must administer with a meal/food clonidine HCl 0.2 mg tablet 0.2 mg PO BID Referrals / Follow Up: Eric Flores MD [Med Staff - Active Staff] - 07/10/22 1:00 pm Sivan Bowie MD [Primary Care Provider] - Within 2 Weeks Flores Morel PA [Med Staff - Adv Practice Prof] - Within 2 Weeks (BP assessement) Disposition Disposition (needs filled in before D/C Order can be placed): Home, Self Care Charges/Coding Visit Charges Inpatient E&M: 27203 Disch Hosp
== END 2022-06-26 13:50 | disposition home or self-care (01) ==
LOC: ED 04:06 → ICU 07:03
PROVIDERS: Admitting Provider Internal Medicine; Emergency Provider Emergency Medicine; PCP Internal Medicine; Visit Provider Internal Medicine
DX: I16.1 Hypertensive emergency (principal); J44.9 Chronic obstructive pulmonary disease, unspecified; E11.9 Type 2 diabetes mellitus without complications; Z79.4 Long term (current) use of insulin; I10 Essential (primary) hypertension; I25.5 Ischemic cardiomyopathy; I25.10 Atherosclerotic heart disease of native coronary artery without angina pectoris; F17.210 Nicotine dependence, cigarettes, uncomplicated; E78.5 Hyperlipidemia, unspecified; Z79.02 Long term (current) use of antithrombotics/antiplatelets; Z79.82 Long term (current) use of aspirin; I25.2 Old myocardial infarction; T82.855A Stenosis of coronary artery stent, initial encounter; Z95.5 Presence of coronary angioplasty implant and graft; Z79.899 Other long term (current) drug therapy; E66.9 Obesity, unspecified; Z68.34 Body mass index [BMI] 34.0-34.9, adult
CPT/HCPCS: 71045; 80048; 80053; 82962; 83735; 84484; 85025; 85610; 85730; 93005; 96365; 96366; 96368; 96375; 96376; 99218; 99285; A4216; G0378; J2405

== ENCOUNTER 2023-11-21 06:37 | Emergency (ER) | payer OTHER, SELFPAY ==
[2021-06-01 14:28] VITALS: BMI 35.6
[2023-11-21 06:38] VITALS: BP 135/74; PULSE 75; RESP 15; TEMP 36.1; O2SAT 93; BMI 35.2
--- NOTE | 2023-11-21 06:47 | RAD_ITS ---
HISTORY: chest pain. TECHNIQUE: XR Chest 1 View. COMPARISON: 06/26/2022. FINDINGS: CARDIOMEDIASTINAL BORDERS: Cardiac silhouette upper limits of normal in size. Mediastinal contour unremarkable. LUNGS: Mild linear bibasilar opacities. PLEURA: Mild blunting of the left costophrenic angle. OSSEOUS STRUCTURES: Unremarkable. RAD/Chest 1 View (Portable) IMPRESSION: Borderline cardiomegaly. Mild left pleural effusion with bibasilar atelectasis or inflammation. Electronically Signed: Mandy Ansari MD at 8:27 EST ,
[2023-11-21 07:01] LABS: Absolute Lymphocyte Count 2.69 X10^3/uL (0.83-4.51); Absolute Neutrophil Count 6.6 X10^3/uL (2.0-7.7); Basophil# 0.05 X10^3/uL; Basophil% 0.5 % (0-1); Eosinophil# 0.21 X10^3/uL; Hematocrit 43.6 % (40-54); Lymphocyte # 2.69 X10^3/ul (0.83-4.51); Lymphocyte % 25.2 % (19-41); Mean Corp Hgb Conc 34.4 g/dL (32-36); Mean Corpuscular Hgb 30.4 pg (27.0-32.0); Mean Corpuscular Volume 88.3 fL (80-94); Monocyte# 1.04 X10^3/uL; Monocyte% 9.8 % (0-10); NRBC Flagged by Analyzer 0 % (0-5); Neutrophil # 6.62 X10^3/uL (2.7-7.7); Platelet Count 260 K/mm3 (150-450); RBC Distribution Width CV 13.3 % (11.6-14.6); RBC Distribution Width SD 43.4 fl (35.1-43.9); Red Blood Count 4.94 M/mm3 (4.6-6.2); White Blood Count 10.7 K/mm3 (4.4-11.0)
[2023-11-21] MEDS: Aspirin 81 MG TAB.CHEW 243 MG PO (07:01)
--- NOTE | 2023-11-21 07:04 | CT_ITS ---
EXAM: CT brain without contrast HISTORY: left sided numbness TECHNIQUE: No intravenous contrast. A radiation dose optimization technique was used for this scan. COMPARISON: Head CT January 21, 2021. LIMITATIONS: None. BRAIN: Normal triplett/white matter differentiation. VENTRICLES: No hydrocephalus. EXTRA-AXIAL SPACES: No acute hemorrhage. CALVARIUM/SKULL BASE: No acute fracture. FACE/SINUSES: Mucous retention cysts or polyps in the maxillary sinuses bilaterally. Partial opacification of the ethmoid air cells on the right. SOFT TISSUES: Normal. OTHER: None. CONCLUSION: No acute intracranial abnormality. Electronically Signed: Joseph Armando MD at 7:43 EST , CT/Brain/Head without Contrast IMPRESSION: undefined
--- NOTE | 2023-11-21 07:06 | ED.VIS.CHEST ---
HPI History of Present Illness Chief Complaint: Chest Pain Informant: patient and spouse/S.O. Narrative Narrative: Patient presents with chest pain. Patient was at work for several hours. He started to get a sharp pain in the mid sternum little bit to the right side. No radiation. But he was short of breath nauseated he said he broke out in a sweat. This is typical of his heart attack pain. He has had multiple stents. He is taking all his since including his aspirin. He is also diabetic hypertensive. He took 1 nitro and it did not help. He took a second and then a third and then the third seem to help. When he took a second nitro he also got what he describes as a pulling sensation that was pulling him to the left. He had that here and I evaluated him at the time. He states he has been having that for about a year. He has had extensive evaluation and seen multiple neurologist and they cannot find the source of this. No indication that this is stroke. When it first started about a year ago it would happen almost daily basis. Now it is less frequent. PFSH PFSH Medical History Acute sinusitis, unspecified Asthma Atherosclerosis of [place] coronary artery of [place] heart without angina pectoris Chronic obstructive pulmonary disease (COPD) Cluster headache Community acquired pneumonia COPD (chronic obstructive pulmonary disease) Coronary artery disease Diabetes Essential hypertension Headache History of non-ST elevation myocardial infarction (NSTEMI) (11/22/20) Hyperlipidemia Insulin dependent diabetes mellitus Ischemic cardiomyopathy Left shoulder pain Migraine Myocardial infarct Nicotine dependence Non-ST elevation ID (NSTEMI) Obesity Obesity (BMI 30.0-34.9) Smoker Home Medications albuterol sulfate 90 mcg/actuation breath activated powder inhaler (ProAir RespiClick) 2 inh inhalation PRN PRN Bronchodilation 11/18/21 [History Last Taken 04/27/22] albuterol sulfate 90 mcg/actuation aerosol inhaler 2 puff inhalation 4X/DAY PRN Shortness Of Breath 04/27/22 [History Last Taken 04/27/22] aspirin 81 mg chewable tablet 81 mg PO DAILY heart health 04/27/22 [History Last Taken 04/27/22] atorvastatin 80 mg tablet 80 mg PO QHS cholesterol 04/27/22 [History Last Taken 04/26/22] lisinopril 20 mg tablet 20 mg PO BID blood pressure 04/27/22 [History Last Taken 04/27/22] loratadine 10 mg tablet 10 mg PO DAILY PRN allergies 06/26/22 [History Last Taken Unknown] ranolazine 500 mg tablet,extended release,12 hr (Ranexa) 500 mg PO BID #60 tabs 07/10/22 [Rx Last Taken Unknown] isosorbide mononitrate 60 mg tablet,extended release 24 hr See Rx Instructions .Route .COMPLEX #60 TABLETS 04/02/23 [Rx Last Taken Unknown] insulin lispro 200 unit/mL (3 mL) subcutaneous pen (Humalog KwikPen U-200 Insulin) See Rx Instructions .Route .COMPLEX #19 mL 04/12/23 [Rx Last Taken Unknown] carvedilol 25 mg tablet 25 mg PO BIDCM #180 tabs 04/24/23 [Rx Last Taken Unknown] clonidine HCl 0.1 mg tablet 0.1 mg PO BID #180 tabs 04/24/23 [Rx Last Taken Unknown] clopidogrel 75 mg tablet See Rx Instructions .Route .COMPLEX #90 TABLETS 05/28/23 [Rx Last Taken Unknown] amlodipine 10 mg tablet 10 mg PO DAILY #90 tabs 06/25/23 [Rx Last Taken Unknown] nitroglycerin 0.4 mg sublingual tablet See Rx Instructions .Route .COMPLEX #25 tabs 08/20/23 [Rx Last Taken Unknown] insulin degludec 200 unit/mL (3 mL) subcutaneous pen (Tresiba FlexTouch U-200 insulin) 50 unit subcut QHS 11/21/23 [History Last Taken Unknown] Allergy/AdvReac Type Severity Reaction Status Date / Time amoxicillin trihydrate Allergy Rash Verified 11/21/23 06:41 [From Augmentin] potassium clavulanate Allergy Rash Verified 11/21/23 06:41 [From Augmentin] codeine AdvReac Nausea Verified 11/21/23 06:41 Family History Sister Myocardial infarction, Onset Age: 41 Diabetes Mother COPD (chronic obstructive pulmonary disease) Asthma Rheumatoid arthritis CVA (cerebral vascular accident) Hypertension Grandmother Diabetes Surgical History History of appendectomy History of coronary artery stent placement (11/18/21) History of hernia repair (2008) History of neck surgery History of umbilical hernia repair (1971) Social History Smoking Status: Current every day smoker tobacco type: cigarettes Tobacco: How many years used: 20 Electronic Cigarette Use: not used second hand exposure: Yes alcohol intake: current alcohol intake frequency: 0-2 drinks per day Alcohol type: beer substance use type: does not use caffeine: Yes Type: carbonated beverages Number of servings: 2 and tea Number of servings: 6 what type of physical activity do you participate in: none ROS ROS ED ROS Narrative A complete review of systems was performed and is negative except as documented in the history of present illness. Some specific details below. Constitutional: No recent fevers or chills. He was feeling normal before this all started at 6 AM. EYE: No discharge, visual complaints, or pain. He did not have a visual field cut ENT: No difficulty swallowing. No swelling. No pain. No reflux symptoms. CV: See history of present illness. Respiratory: See history of present illness. Not short of breath now. GI: No abdominal pain. He had some nausea but no vomiting diarrhea. No blood in stool. : No frequency dysuria or hematuria. Musculoskeletal: No recent trauma. No pains. No swelling. Skin: No rash. Nondiaphoretic. Neuro: Pulling sensation of his body being pulled to the left. Endocrine: No polyuria or polydipsia. EXAM Physical Exam Narrative Exam Narrative: CONSTITUTIONAL: Patient is nontoxic in appearance. The patient looks comfortable. Work of breathing looks normal. HEENT: No notable trauma. Mucous membranes moist. No diaphoresis on brow. EYES: No conjunctival injection. No proptosis. NECK:No JVD. No stridor. CARDIOVASCULAR: Regular rate. Regular rhythm. No notable murmur. No JVD. RESPIRATORY: No respiratory distress. Breathing is unlabored. No wheezes. No rhonchi. No rales. No pain with a deep breath. No chest wall tenderness. GASTROINTESTINAL: Somewhat obese but not distended. Bowel sounds are normal. No tenderness. No guarding. No rebound. No palpable mass. No bruit is heard. GENITOURINARY: No tenderness over the bladder. No CVA tenderness. MUSCULOSKELETAL: Atraumatic. No peripheral edema. NEUROLOGICAL: Patient is alert and appropriate. I was called into the room as I came into the facility. He had this sense of pulling to the left. When he was lifting his left arm it would drift but to the left side not drift down. His body was laying back in the bed but it was sliding to the left. But when I had him hold up both arms there was no vertical drip. 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 Facial structure was normal. Sensation is normal. Leg lift is normal. There is no indication of deficit during this episode. SKIN: No noted rashes. No diaphoresis at this time. PSYCHIATRIC: Patient is calm. Mood is appropriate. Const Vital Signs: 11/21/23 06:38 11/21/23 06:40 11/21/23 06:47 Temperature 97 F L Temperature Source Temporal Pulse Rate 75 Respiratory Rate 15 Respiratory Effort Normal Blood Pressure 135/74 H Blood Pressure Mean 94 Pulse Ox 93 Oxygen Delivery Method Room Air 11/21/23 09:00 11/21/23 09:57 Temperature Temperature Source Pulse Rate 64 65 Respiratory Rate 18 18 Respiratory Effort Blood Pressure 140/87 H 136/76 H Blood Pressure Mean 104 96 Pulse Ox 96 94 Oxygen Delivery Method Room Air Room Air Heart Score History: Moderately Suspicious ECG: Nonspecific Repolarization Age: >45 - <65 years Risk Factors: >/= 3 Risk Factors or History of CAD Troponin: </= Normal Limit Score: 5 MDM MDM MDM Narrative Medical decision making narrative: My independent interpretation of the patient's CT T of his head shows no acute process and final reading is similar. My independent interpretation of the patient's single view chest x-ray shows some cardiomegaly but this is an AP film. No acute process. Final reading is pending. Patient CBC is overall normal. Patient's electrolytes mild glucose elevation 6 2. No other marked abnormalities. Patient's first troponin is 45. This was drawn likely an hour after the onset of his symptoms. My concern is that this patient has well-known heart disease. He is a smoker. He states he is taking all his meds now although I guess in the past he has had issues with this. He has a heart score of 5. He did have a heart cath about a year and a half ago. His last stents were a little over 2 years ago. I went back and talk with the patient. My plan was to admit this patient because he does have higher risk. He states there is no way he is staying in the hospital. The pulling to the left is chronic ongoing and it has been extensively evaluated. He states the chest pain is gone. He states he does not want to stay in the hospital he will follow-up with his doctor. I talked to him and explained the timing of his troponin. I was able to use the discussion and also his to help and at this point he is agreeing to stay for at least a repeat troponin so we can add a little margin of safety. We also agree that he will be allowed to eat breakfast. We did this bargaining to keep him here to at least recheck the troponin. If that is elevated I hopefully will have a lot more data that we will convince him to stay. His repeat opponent did come back lower. I talked with the patient again. He does not want to stay hospital. He was encouraged to have a low threshold to return. 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 Flores for close follow-up. Make sure he keeps taking all his meds as prescribed. Lab Data Attestation: I reviewed the patient's lab results. Labs: Laboratory Results - last 24 hr 11/21/23 11/21/23 06:44 08:45 WBC 10.7 RBC 4.94 Hgb 15.0 Hct 43.6 MCV 88.3 MCH 30.4 MCHC 34.4 RDW Std Deviation 43.4 RDW Coeff of Narcisa 13.3 Plt Count 260 MPV 10.0 Immature Gran % (Auto) 0.500 Neut % (Auto) 62.0 Lymph % (Auto) 25.2 Wilkinson % (Auto) 9.8 Eos % (Auto) 2.0 Baso % (Auto) 0.5 Absolute Neuts (auto) 6.6 Absolute Lymphs (auto) 2.69 Nucleated RBC % 0 Sodium 139 Potassium 3.8 Chloride 107 Carbon Dioxide 28.0 Anion Gap 4 L BUN 19 H Creatinine 1.14 Estim Creat Clear Calc 73.33 Est GFR (MDRD) Af Amer 87 Est GFR (MDRD) Non-Af 72 BUN/Creatinine Ratio 16.7 Glucose 162 H Calcium 9.4 Troponin I High Sens 45 40 Radiography Diagnostic Testing: Clinical Impression(s) from Imaging Studies Chest X-Ray 11/21/23 06:47 IMPRESSION: Borderline cardiomegaly. Mild left pleural effusion with bibasilar atelectasis or inflammation. Electronically Signed: Mandy Ansari MD at 8:27 EST , Brain CT 11/21/23 07:04 IMPRESSION: undefined Discharge Plan Triage Chief Complaint: Chest Pain ED Provider: Luis York Dx/Rx/DC Orders Clinical Impression: Left against medical advice, History of coronary artery disease, Chest pain Instructions: ED Chest Pain, Uncertain Cause Prescriptions: No Action ranolazine [Ranexa] 500 mg tablet extended release 12 hr 500 mg PO BID Qty: 60 11RF ProAir RespiClick 90 mcg/actuation aerosol powdr breath activated 2 inh INHALATION PRN PRN (Reason: Bronchodilation) albuterol sulfate 90 mcg/actuation HFA aerosol inhaler 2 puff INHALATION 4X/DAY PRN (Reason: Shortness Of Breath) Patient Comments: inhale 2 puffs INTO THE LUNGS UP TO FOUR TIMES A DAY NEEDED atorvastatin 80 mg tablet 80 mg PO QHS lisinopril 20 mg tablet 20 mg PO BID aspirin 81 MG tablet,chewable 81 mg PO DAILY loratadine 10 mg tablet 10 mg PO DAILY PRN (Reason: allergies) insulin degludec [Tresiba FlexTouch U-200] 200 unit/mL (3 mL) insulin pen 50 unit SUBCUT QHS Patient Comments: inject 50 units subcutaneously at bedtime for diabetes isosorbide mononitrate 60 mg tablet extended release 24 hr See Rx Instructions .ROUTE .COMPLEX Qty: 60 12RF Dose Instruction: TAKE 1 TABLET BY MOUTH TWICE A DAY FOR HEART. Rx Instructions: TAKE 1 TABLET BY MOUTH TWICE A DAY FOR HEART. Humalog KwikPen Insulin 200 unit/mL (3 mL) insulin pen See Rx Instructions .ROUTE .COMPLEX Qty: 19 0RF Dose Instruction: inject 14 units subcutaneously three times a day (SEE PROTOCOL) Rx Instructions: inject 14 units subcutaneously three times a day (SEE PROTOCOL) carvedilol 25 mg tablet 25 mg PO BIDCM Qty: 180 3RF clonidine HCl 0.1 mg tablet 0.1 mg PO BID Qty: 180 3RF clopidogrel 75 mg tablet See Rx Instructions .ROUTE .COMPLEX Qty: 90 3RF Dose Instruction: take 1 tablet by mouth once daily Rx Instructions: take 1 tablet by mouth once daily amlodipine 10 mg tablet 10 mg PO DAILY Qty: 90 3RF nitroglycerin 0.4 mg tablet, sublingual See Rx Instructions .ROUTE .COMPLEX Qty: 25 3RF Dose Instruction: place 1 tablet under the tongue if needed every 5 minutes for chest pain for 3 doses IF NO RELIEF AFTER THIRD DOSE CALL 911. Rx Instructions: place 1 tablet under the tongue if needed every 5 minutes for chest pain for 3 doses IF NO RELIEF AFTER THIRD DOSE CALL 911. Primary Care Provider: Sivan Bowie Referrals: Eric Flores MD [Med Staff - Active Staff] - Sivan Bowie MD [Primary Care Provider] - Disposition Disposition: Home, Self Care
[2023-11-21 07:20] LABS: Anion Gap 4 (5-15); BUN 19 mg/dL (7-18); BUN/Creat Ratio 16.7 RATIO (10-20); Calcium,Total 9.4 mg/dL (8.5-10.1); Chloride 107 mmol/L (98-107); Creatinine, Serum 1.14 mg/dL (0.70-1.30); EST Glomerular Filtration Rate 72 mL/min (>60); Est Glom Filt Rate - Afr Amer 87 mL/min (>60); Estimated Creatinine Clearance 73.33 ml/min; Glucose 162 mg/dL (74-106); Potassium 3.8 mmol/L (3.5-5.1); Sodium Level 139 mmol/L (136-145); Troponin-I HS (w/2H Reflex) 45 pg/mL (3.0-78.0)
--- OUTSIDE RECORDS SUMMARY | 2023-11-21 07:31 | XMS RPT_ITS | CCD ---
Author Name Unknown Address [id number] [place] [address] Organization [facility] Care Team Providers Care Library Aide Name Role Phone MD Flores Cyril S Unavailable Roof EDITOR [employer]IN[employer] SCRIPT, Hesham Sharma Unavailable Valeriano Weir Unavailable Unavailable MD Flores Cyril S Unavailable Valeriano Weir Unavailable Unavailable VETO Liang, Crista Duran Unavailable Unavailabl e Allergies Allergy Classification Reported Allergen(s) Allergy Type Date of Onset Reaction(s) Facility (18 sources) amoxicillin drug allergy 12-22-2016 severe rash, uknnown [facility] Work Phone: [phone] (9 sources) amoxicillin / clavulanate drug allergy 12-27-2016 severe rash [facility] Work Phone: [phone] (18 sources) codeine drug allergy 12-22-2016 projectile vomiting, unknown [facility] Work Phone: [phone] Medications Completed/Discontinued Medications Medication Drug Class(es) Dates Sig (Normalized) Sig (Original) amLODIPine 10 mg oral tablet (20 sources) Dihydropyridine Cal[facility] [place] Start: 07-11-2017 take 1 tablet by mouth once daily AMLODIPINE BESYLATE 10 MG TABS One tablet by mouth daily AMLODIPINE BESYLATE [id number] Hesham Canchola NP Problems Active Problems Problem Classification Problem Date Documented Date Episodic/Chronic Acute myocardial infarction (17 sources) Non-ST elevation (NSTEMI) myocardial infarction; Translations: [Acute subendocardial infarction] Onset: 12-22-2016 04-27-2017 Chronic Chronic obstructive pulmonary disease and bronchiectasis (9 sources) Chronic obstructive lung disease; Translations: [Chronic obstructive pulmonary disease, unspecified] Onset: 12-22-2016 12-22-2016 Chronic Coronary atherosclerosis and other heart disease (17 sources) Atherosclerotic heart disease of [place] coronary artery without angina pectoris; Translations: [Coronary atherosclerosis] Onset: 12-22-2016 04-27-2017 Chronic Disorders of lipid metabolism (9 sources) Hyperlipidemia; Translations: [Hyperlipidemia, unspecified] Onset: 12-22-2016 12-22-2016 Chronic Essential hypertension (9 sources) Hypertensive disorder; Translations: [Essential (primary) hypertension] Onset: 12-22-2016 12-22-2016 Chronic Other nutritional; endocrine; and metabolic disorders (2 sources) Body mass index (BMI) 31.0-31.9, adult; Translations: [Body mass index (BMI) 31.0-31.9, adult] Onset: 07-17-2017 07-17-2017 Chronic Substance-related disorders (9 sources) Tobacco dependence syndrome; Translations: [Nicotine dependence, unspecified, uncomplicated] Onset: 12-22-2016 12-22-2016 Chronic Thyroid disorders (9 sources) Hypothyroidism; Translations: [Hypothyroidism, unspecified] Onset: 12-22-2016 12-22-2016 Chronic Unclassified (12 sources) Placement of stent in coronary artery ; Translations: [Presence of coronary angioplasty implant and graft] Onset: 12-22-2016 04-27-2017 Past or Other Problems Problem Classification Problem Date Documented Da te Episodic/Chronic Other lower respiratory disease (9 sources) Dyspnea; Translations: [Shortness of breath] Onset: 02-06-2017 02-06-2017 Episodic Residual codes; unclassified (15 sources) Edema of lower extremity; Translations: [Generalized edema] Onset: 02-06-2017 02-06-2017 Episodic Residual codes; unclassified (3 sources) Generalized edema; Translations: [Anasarca] Onset: 02-06-2017 02-06-2017 Episodic Results Test Name Value Interpretation Reference Range Facil ity Vital Signs Date Time Vital Sign Value Performing Clinician Rebecca estrellay 07-17-2017 10:05-0400 BMI (Body Mass Index) 31.81 kg/m2 MD [facility] Work Phone: 07-17-2017 10:05-0400 BP Diastolic 100 mm[Hg] MD [facility] Work Phone: 07-17-2017 10:05-0400 BP Systolic 158 mm[Hg] MD [facility] Work Phone: 07-17-2017 10:05-0400 Height 172.72 cm MD [facility] Work Phone: 07-17-2017 10:05-0400 Pulse (Heart Rate) 72 /min MD [facility] Work Phone: 07-17-2017 10:05-0400 Respiratory Rate 20 /min MD [facility] Work Phone: 07-17-2017 10:05-0400 Weight 94.92 kg MD [facility] Work Phone: 04-27-2017 09:15-0400 BMI (Body Mass Index) 34.97 kg/m2 MD [facility] Work Phone: 04-27-2017 09:15-0400 BP Diastolic 104 mm[Hg] MD [facility] Work Phone: 04-27-2017 09:15-0400 BP Systolic 178 mm[Hg] MD [facility] Work Phone: 04-27-2017 09:15-0400 Height 172.72 cm MD [facility] Work Phone: 04-27-2017 09:15-0400 Pulse (Heart Rate) 78 /min MD [facility] Work Phone: 04-27-2017 09:15-0400 Respiratory Rate 18 /min MD [facility] Work Phone: 04-27-2017 09:15-0400 Weight 104.33 kg MD [facility] Work Phone: 02-06-2017 14:25-0400 Heart rate 89 /min [facility] Work Phone: 02-06-2017 14:17-0400 BMI (Body Mass Index) 34.39 kg/m2 [employer] [place] [facility] Work Phone: 02-06-2017 14:17-0400 Body weight 102.6 kg Harumi DeFinis [facility] Work Phone: 02-06-2017 14:17-0400 BP Diastolic 90 mm[Hg] Harumi DeFinis [facility] Work Phone: 02-06-2017 14:17-0400 BP Systolic 140 mm[Hg] Harumi [employer] [facility] Work Phone: 02-06-2017 14:17-0400 Height 172.72 cm Harumi DeFinis [facility] Work Phone: 02-06-2017 14:17-0400 Pulse (Heart Rate) 88 /min Harumi [employer] [facility] Work Phone: 02-06-2017 14:17-0400 Pulse Oximetry 98 % Harumi [employer] [facility] Work Phone: 02-06-2017 14:17-0400 Respiratory Rate 24 /min Harumi DeFinis [facility] Work Phone: 02-06-2017 14:17-0400 Weight 102.6 kg Eric Flores MD [facility] Work Phone: 12-27-2016 09:070500 BSA (Body Surface Area) 2.12 [facility]2 [facility] [employer] [facility] Work Phone: Procedures Date Procedure Procedure Detail Performing Clinician Start: 07-17-2017 End: 07-17-2017 Dietary management education, guidance, and counseling Eric Flores MD Start: 04-27-2017 End: 04-27-2017 *BMP Eric Flores MD Start: 04-27-2017 End: 04-27-2017 *Hepatic Function Panel Renee Thomas Start: 04-27-2017 End: 04-27-2017 Follow Up Appt 6 months Renee Thomas Start: 04-27-2017 End: 04-27-2017 Lipid panel [AGGREGATE] Renee Thomas Start: 04-27-2017 End: 04-27-2017 DIEGO Flores MD Start: 02-06-2017 End: 02-06-2017 Documentation of current medications Valeriano Carmella Start: 02-06-2017 End: 02-06-2017 Electrocardiogram, complete Eric Angulo i, MD Start: 02-06-2017 End: 02-06-2017 Follow Up Appt 3 months Renee Thomas Start: 02-06-2017 End: 02-06-2017 MMRenee Flores MD Start: 12-27-2016 End: 12-27-2016 Smoking cessation education Valeriano lemus Start: 12-27-2016 End: 12-27-2016 Follow Up Appt 4 months Renee Thomas Start: 12-27-2016 End: 12-27-2016 DIEGO Flores MD Start: 12-22-2016 Placement of stent i n coronary artery Coronary stent Valeriano Merlyallan Plan of Treatment Date Care Activity Detail Author Start: 11-09-2017 End: 11-09-2017 Appointment Appointment [facility] Work Phone: Start: 10-29-2017 End: 05-03-2017 *Hepatic Function Panel *Hepatic Function Panel [facility] Work Phone: Start: 10-29-2017 End: 05-03-2017 Lipid panel [AGGREGATE] *Lipid Profile CC PCP [facility] Work Phone: Start: 07-17-2017 End: 07-17-2017 Appointment Appointment [facility] Work Phone: Start: 07-13-2017 End: 07-13-2017 Appointment Appointment [facility] Work Phone: Start: 04-27-2017 End: 04-27-2017 Appointment Appointment [facility] Work Phone: Start: 04-27-2017 End: 04-27-2017 *BMP *BMP [facility] Work Phone: Start: 04-27-2017 End: 04-27-2017 *Hepatic Function Panel *Hepatic Function Panel [facility] Work Phone: Start: 04-27-2017 End: 04-27-2017 Follow Up Appt 6 months Follow Up Appt 6 months [facility] Work Phone: Start: 04-27-2017 End: 04-27-2017 Lipid panel [AGGREGATE] *Lipid Profile CC PCP [facility] Work Phone: Start: 04-27-2017 End: 04-27-2017 MMM MMM [facility] Work Phone: Start: 02-06-2017 End: 02-06-2017 Electrocardiogram, complete EKG (In office) [facility] Work Phone: Start: 02-06-2017 End: 02-06-2017 Follow Up Appt 3 months Follow Up Appt 3 months [facility] Work Phone: Start: 02-06-2017 End: 02-06-2017 MMM MMM [facility] Work Phone: Start: 12-27-2016 End: 12-27-2016 *Hepatic Function Panel *Hepatic Function Panel [facility] Work Phone: Start: 12-27-2016 End: 12-27-2016 Follow Up Appt 4 months Follow Up Appt 4 months [facility] Work Phone: Start: 12-27-2016 End: 12-27-2016 Lipid 1996 panel *Lipid Profile CC PCP [facility] Work Phone: Start: 12-27-2016 End: 12-27-2016 MMM MMM [facility] Work Phone: Patient Education HYPERLIPIDEMIA [facility] Work Phone: Additional Source Comments FOR RECORDS PERTAINING TO PATIENTS WHO ARE OR HAVE BEEN ENROLLED IN A CHEMICAL DEPENDENCY/SUBSTANCEABUSE PROGRAM, SOME INFORMATION MAY BE OMITTED. This clinical summary was aggregated from multiple sources. Caution should be exercised in using it in the provision of clinical care. This summary normalizes information from multiple sources, and as a consequence, information in this document may materially change the coding, format and clinical context of patient data. In addition, data may be omitted in some cases. CLINICAL DECISIONS SHOULD BE BASED ON THE PRIMARY CLINICAL RECORDS. [employer] [facility]. provides no warranty or guarantee of the accuracy or completeness of information in this document.
[2023-11-21 08:58] LABS: Reflex Troponin-HS? (from REC) Y
[2023-11-21 09:00] VITALS: BP 140/87; PULSE 64; RESP 18; O2SAT 96
[2023-11-21 09:49] LABS: Troponin-I HS 40 pg/mL (3.0-78.0)
[2023-11-21 09:57] VITALS: BP 136/76; PULSE 65; RESP 18; O2SAT 94
[2023-11-21 10:41] VITALS: BP 133/77; PULSE 71; RESP 18; O2SAT 97
== END 2023-11-21 10:45 | disposition home or self-care (01) ==
PROVIDERS: Emergency Provider Emergency Medicine; PCP Internal Medicine; Visit Provider Emergency Medicine
DX: Z53.29 Procedure and treatment not carried out because of patient's decision for other reasons (principal); J44.9 Chronic obstructive pulmonary disease, unspecified; Z79.4 Long term (current) use of insulin; E11.9 Type 2 diabetes mellitus without complications; I25.10 Atherosclerotic heart disease of native coronary artery without angina pectoris; F17.210 Nicotine dependence, cigarettes, uncomplicated; R07.9 Chest pain, unspecified; E78.5 Hyperlipidemia, unspecified; I25.2 Old myocardial infarction; I5A Non-ischemic myocardial injury (non-traumatic); Z79.899 Other long term (current) drug therapy; Z79.82 Long term (current) use of aspirin; Z79.02 Long term (current) use of antithrombotics/antiplatelets; Z90.49 Acquired absence of other specified parts of digestive tract; Z95.5 Presence of coronary angioplasty implant and graft
CPT/HCPCS: 70450; 71045; 80048; 84484; 85025; 93005; 99284; A4216

== ENCOUNTER → 2023-12-11 | Outpatient (CLI) | payer OTHER, SELFPAY ==
[2021-06-01 14:28] VITALS: BMI 35.6
--- OUTSIDE RECORDS SUMMARY | 2023-12-11 06:09 | XMS RPT_ITS | CCD ---
Author Name Unknown Address [address] [place] [address] Organization [facility] Care Team Providers Care Director Of Category Management Name Role Phone MD Sandra, Eric S Unavailable [employer], Hesham Sharma Unavailable Valeriano Weir Unavailable Unavailable MD Flores Cyril S Unavailable Valeriano Weir Unavailable Unavailable VETO Liang, Crista Duran Unavailable Unavailabl e Allergies Allergy Classification Reported Allergen(s) Allergy Type Date of Onset Reaction(s) Facility (18 sources) amoxicillin drug allergy 12-22-2016 severe rash, uknnown [facility] Work Phone: [phone] (9 sources) amoxicillin / clavulanate drug allergy 12-27-2016 severe rash [facility] Work Phone: [phone] (18 sources) codeine drug allergy 12-22-2016 projectile vomiting, unknown [facility] Work Phone: [phone] Medications Completed/Discontinued Medications Medication Drug Class(es) Dates Sig (Normalized) Sig (Original) amLODIPine 10 mg oral tablet (20 sources) Dihydropyridine [facility] [place] Start: 07-11-2017 take 1 tablet by mouth once daily AMLODIPINE BESYLATE 10 MG TABS One tablet by mouth daily AMLODIPINE BESYLATE [id number] Hesham Canchola NP Problems Active Problems Problem [...] disease (17 sources) Atherosclerotic heart disease of [place] coronary artery without angina pectoris; Translations: [Coronary [...] Mass Index) 31.81 kg/m2 MD [facility] Work Phone: 07-17-2017 10:05-0400 BP Diastolic [...] BMI (Body Mass Index) 34.39 kg/m2 [employer] [facility] Work Phone: 02-06-2017 14:17-0400 Body weight 102.6 kg Harumi DeFinis [facility] Work Phone: 02-06-2017 14:17-0400 BP Diastolic 90 mm[Hg] Harumi DeFinis [facility] Work Phone: 02-06-2017 14:17-0400 BP Systolic 140 mm[Hg] [employer] [facility] Work Phone: 02-06-2017 14:17-0400 Height 172.72 cm Harumi DeFinis [facility] Work Phone: 02-06-2017 14:17-0400 Pulse (Heart Rate) 88 /min [employer] [facility] Work Phone: 02-06-2017 14:17-0400 Pulse Oximetry 98 % [employer] [facility] Work Phone: 02-06-2017 14:17-0400 Respiratory Rate 24 /min Harumi DeFinis [facility] Work Phone: 02-06-2017 14:17-0400 Weight 102.6 kg Eric Flores MD [facility] Work Phone: 12-27-2016 09:070500 BSA (Body Surface Area) 2.12 [facility]2 [facility] Work Phone: Procedures Date Procedure [...] 05-03-2017 *Hepatic Function Panel *Hepatic Function Panel [facility] Work Phone: Start: 10-29-2017 End: 05-03-2017 Lipid panel [AGGREGATE] *Lipid Profile CC PCP [facility] Work Phone: Start: 07-17-2017 End: 07-17-2017 Appointment Appointment [facility] Work Phone: Start: 07-13-2017 End: 07-13-2017 Appointment Appointment [facility] Work Phone: Start: 04-27-2017 End: 04-27-2017 Appointment Appointment [facility] Work Phone: Start: 04-27-2017 End: 04-27-2017 *BMP *BMP [facility] Work Phone: Start: 04-27-2017 End: 04-27-2017 *Hepatic Function Panel *Hepatic Function Panel [facility] Work Phone: Start: 04-27-2017 End: 04-27-2017 Follow Up Appt 6 months Follow Up Appt 6 months [facility] Work Phone: Start: 04-27-2017 End: 04-27-2017 Lipid panel [AGGREGATE] *Lipid Profile CC PCP [facility] Work Phone: Start: 04-27-2017 End: 04-27-2017 MMM MMM [facility] Work Phone: Start: 02-06-2017 End: 02-06-2017 Electrocardiogram, complete EKG (In office) [facility] Work Phone: Start: 02-06-2017 End: 02-06-2017 Follow Up Appt 3 months Follow Up Appt 3 months [facility] Work Phone: Start: 02-06-2017 End: 02-06-2017 MMM MMM [facility] Work Phone: Start: 12-27-2016 End: 12-27-2016 *Hepatic Function Panel *Hepatic Function Panel [facility] Work Phone: Start: 12-27-2016 End: 12-27-2016 Follow Up Appt 4 months Follow Up Appt 4 months [facility] Work Phone: Start: 12-27-2016 End: 12-27-2016 Lipid 1996 panel *Lipid Profile CC PCP [facility] Work Phone: Start: 12-27-2016 End: 12-27-2016 MMM MMM [facility] Work Phone: Patient Education HYPERLIPIDEMIA [facility] Work Phone: Additional Source Comments [...] BE BASED ON THE PRIMARY CLINICAL RECORDS. [employer] [facility]. provides no warranty or guarantee of the accuracy or completeness of information in this document.
--- NOTE | 2023-12-11 17:10 | STRESSREP ---
Stress Test Report Exercise myocardial perfusion stress test. 53-year-old man with a history of coronary artery disease status post coronary bypass surgery and stenting to the LAD Stress protocol: Resting EKG demonstrates normal sinus rhythm with a rate of 90 bpm resting blood pressure is 162/82 mmHg. The patient exercised according to the regular Ricci protocol for a total duration of 5 minutes attaining a maximum heart rate of 137 bpm which was 81% of maximum predicted heart rate; the maximum workload was 7 metabolic equivalents. At rest there were no ST or T wave changes noted to suggest ischemia and at peak exercise upsloping ST changes only were noted which did not meet the criteria for ischemia. No clinical angina was noted the test was terminated due to the target heart rate being achieved/fatigue. The peak blood pressure was 210/108 mmHg. Rate-pressure product was 28,500. The above is a hypertensive response to exercise Myocardial perfusion protocol. 13.8 mCi of technetium 99m sestamibi was injected at rest. The patient exercised according to regular Ricci protocol for total duration of 5 minutes and at peak exercise 42.7 mCi of technetium 99m sestamibi was injected stress images were obtained stress and rest images were reconstructed in comparing the short axis vertical long and horizontal long axis. Gated images were also obtained. Perfusion SPECT analysis: Review of the stress images demonstrate normal uptake of tracer noted in all areas of the myocardium except for a small area in the apical septum with a perfusion defect present. The resting images similarly demonstrate normal uptake of tracer noted in all areas of the myocardium except for small area in the apical septum with a perfusion defect suggestive of an apical septal infarcted zone. No ischemia is noted. Gated SPECT analysis: The gated ejection fraction is 41%. Conclusion: Normal exercise myocardial perfusion stress test at a moderate workload Mildly reduced ejection fraction. Previous apical septal infarct present.
== END | disposition home or self-care (01) ==
LOC: CVS 06:07
PROVIDERS: PCP Internal Medicine; Referring Provider Internal Medicine Cardiovascular Disease; Visit Provider Internal Medicine Cardiovascular Disease
DX: R07.9 Chest pain, unspecified (principal); Z86.79 Personal history of other diseases of the circulatory system; I25.5 Ischemic cardiomyopathy; Z95.5 Presence of coronary angioplasty implant and graft; R94.31 Abnormal electrocardiogram [ECG] [EKG]
CPT/HCPCS: 78452; 93017; A9500; A4216

== ENCOUNTER 2023-12-24 12:18 | Inpatient (IN) | payer OTHER, SELFPAY ==
[2021-06-01 14:28] VITALS: BMI 35.6
[2023-12-24] VITALS (21 sets, daily range): BP systolic 152–219; BP diastolic 93–135; PULSE 79–108; RESP 16–28; TEMP 35.5–36.7; O2SAT 91–98; BMI 35.5; BMI 34.4
--- NOTE | 2023-12-24 12:36 | EDS_ITS ---
HPI History of Present Illness Chief Complaint: Chest Pain Narrative Narrative: 53-year-old male, presents with his because of chest pain that has been ongoing for the last month, but worse today. He has past medical history of hypertension, coronary artery disease with 7 stents. He states that he continues to smoke a pack a day but is down from 2 packs a day. Additionally, he had a stress test few weeks ago, which was negative reportedly and they changed his medications. He states that while he has been having vomiting every morning that improves over time, today he had chest pain and left arm pain, more like a pressure sensation or even muscle burning. He vomited twice without any blood in his emesis. He denies any diaphoresis. He states he took a nitroglycerin, then took another 1 perhaps an hour later. He went to lay down but his chest pain got worse. When he got up, he took another nitroglycerin and came to the emergency department. He denies any leg swelling. No tearing sensation in his back, no exacerbating or alleviating factors. PFSH PFSH Medical History Acute sinusitis, unspecified Asthma Atherosclerosis of [place] coronary artery of [place] heart without angina pectoris Chronic obstructive pulmonary disease (COPD) Cluster headache Community acquired pneumonia COPD (chronic obstructive pulmonary disease) Coronary artery disease Diabetes Essential hypertension Headache History of non-ST elevation myocardial infarction (NSTEMI) (11/22/20) Hyperlipidemia Insulin dependent diabetes mellitus Ischemic cardiomyopathy Left shoulder pain Migraine Myocardial infarct Nicotine dependence Non-ST elevation NM (NSTEMI) Obesity Obesity (BMI 30.0-34.9) Smoker Home Medications albuterol sulfate 90 mcg/actuation aerosol inhaler 2 puff inhalation 4X/DAY PRN Shortness Of Breath 04/27/22 [History Last Taken 04/27/22] aspirin 81 mg chewable tablet 81 mg PO DAILY heart health 04/27/22 [History Last Taken 04/27/22] atorvastatin 80 mg tablet 80 mg PO QHS cholesterol 04/27/22 [History Last Taken 04/26/22] loratadine 10 mg tablet 10 mg PO DAILY PRN allergies 06/26/22 [History Last Taken Unknown] isosorbide mononitrate 60 mg tablet,extended release 24 hr See Rx Instructions .Route .COMPLEX #60 TABLETS 04/02/23 [Rx Last Taken Unknown] insulin lispro 200 unit/mL (3 mL) subcutaneous pen (Humalog KwikPen U-200 Insulin) See Rx Instructions .Route .COMPLEX #19 mL 04/12/23 [Rx Last Taken Unknown] carvedilol 25 mg tablet 25 mg PO BIDCM #180 tabs 04/24/23 [Rx Last Taken Unknown] clonidine HCl 0.1 mg tablet 0.1 mg PO BID #180 tabs 04/24/23 [Rx Last Taken Unknown] clopidogrel 75 mg tablet See Rx Instructions .Route .COMPLEX #90 TABLETS 05/28/23 [Rx Last Taken Unknown] amlodipine 10 mg tablet 10 mg PO DAILY #90 tabs 06/25/23 [Rx Last Taken Unknown] insulin degludec 200 unit/mL (3 mL) subcutaneous pen (Tresiba FlexTouch U-200 insulin) 50 unit subcut QHS 11/21/23 [History Last Taken Unknown] lisinopril 20 mg tablet 20 mg PO BID blood pressure #180 tabs 11/26/23 [Rx Last Taken Unknown] ProAir RespiClick 90 mcg/actuation breath activated (albuterol sulfate) See Rx Instructions inhalation PRN PRN Bronchodilation #1 ea 12/12/23 [Rx Last Taken Unknown] nitroglycerin 0.4 mg sublingual tablet See Rx Instructions .Route .COMPLEX #25 tabs 12/14/23 [Rx Last Taken Unknown] ranolazine 1,000 mg tablet,extended release,12 hr 1,000 mg PO BID #180 tabs 12/18/23 [Rx Last Taken Unknown] Allergy/AdvReac Type Severity Reaction Status Date / Time amoxicillin trihydrate Allergy Rash Verified 12/06/23 15:11 [From Augmentin] potassium clavulanate Allergy Rash Verified 12/06/23 15:11 [From Augmentin] codeine AdvReac Nausea Verified 12/06/23 15:11 Family History Sister Myocardial infarction, Onset Age: 41 Diabetes Mother COPD (chronic obstructive pulmonary disease) Asthma Rheumatoid arthritis CVA (cerebral vascular accident) Hypertension Grandmother Diabetes Surgical History History of appendectomy History of coronary artery stent placement (11/18/21) History of hernia repair (2008) History of neck surgery History of umbilical hernia repair (1971) Social History Smoking Status: Current every day smoker tobacco type: cigarettes Tobacco: How many years used: 20 Electronic Cigarette Use: not used second hand exposure: Yes alcohol intake: current alcohol intake frequency: 0-2 drinks per day Alcohol type: beer substance use type: does not use caffeine: Yes Type: carbonated beverages Number of servings: 2 and tea Number of servings: 6 what type of physical activity do you participate in: none ROS ROS ED ROS Narrative Constitutional: No fever, no chills. HEENT: No sore throat. No neck pain. No loss of vision. No rhinorrhea. Cardiovascular: Positive left arm and chest pain. No palpitations. No pedal edema. Respiratory: No cough, positive shortness of breath. Abdominal: No abdominal pain. 2 episodes of nausea and vomiting, nonbloody, today. Genitourinary: No dysuria. No hematuria. Musculoskeletal: No myalgias. No arthralgias. Neurologic: No headaches. No dizziness. No lightheadedness. Skin: No rash. No change in color. Psychiatric: No depression. No anxiety. EXAM Physical Exam Narrative Exam Narrative: Afebrile. Vital signs noted. HEENT: Normocephalic. Atraumatic. PERRL, EOMI. Neck soft and supple. No point tenderness or step off. Cardiovascular: Regular rate and rhythm. No murmurs, rubs, or gallops appreciated. Respiratory: No tachypnea. Lungs clear to auscultation bilaterally. Gastrointestinal: Abdomen soft, nontender, with normoactive bowel sounds. No rebound or guarding. Neurological: Awake. Alert. Nonfocal, nonlateralizing. Skin: No rash. Normal color. No pallor. Musculoskeletal: No pedal edema. Full range of motion extremities. Const Vital Signs: 12/24/23 12:19 12/24/23 12:50 12/24/23 12:50 Temperature 97.6 F L Temperature Source Temporal Pulse Rate Respiratory Rate Respiratory Effort Normal Blood Pressure Blood Pressure Mean Pulse Ox 93 Oxygen Delivery Method Room Air 12/24/23 12:40 12/24/23 13:08 12/24/23 14:00 Temperature Temperature Source Pulse Rate 100 94 Respiratory Rate 16 17 Respiratory Effort Blood Pressure 202/110 H 197/115 H 210/119 H Blood Pressure Mean 140 142 149 Pulse Ox 98 94 Oxygen Delivery Method Room Air Room Air Heart Score History: Moderately Suspicious ECG: Normal Age: >45 - <65 years Risk Factors: >/= 3 Risk Factors or History of CAD Score: 4 MDM MDM MDM Narrative Medical decision making narrative: In the differential diagnosis is ACS versus pulmonary embolism versus pneumothorax versus pneumonia. The history and physical does not necessarily support the latter 2 diagnoses. I have low suspicion for aortic dissection because he does not have tearing sensation in his back and it is more typical of his previous problems with chest pain. Smoking cessation was discussed. EKG was obtained and interpreted by myself independently as sinus tachycardia at 105 bpm without ectopy or acute ST changes. No STEMI. No significant change except for the tachycardia when compared to an EKG dated November 21, 2023. In review of his laboratory work, he has an elevated white count of 12.0 which I think is nonspecific, hemoglobin slightly hemoconcentrated at 17.3 with hematocrit 51.4, platelet count normal at 274. INR 0.9 with a PTT 24.7, D-dimer 0.47. I do not feel that he needs a CTA of the chest. Sodium is normal at 141 with potassium 3.6, chloride 104 with BUN of 14 and creatinine 1.13. While glucose is elevated to 86, he has a normal anion gap of 9. BNP is slightly elevated above 100. Of significance, his initial troponin is 300. While they have been elevated in the past, they were last taken last month and were normal in the 40s. Patient continues to have elevated blood pressure in the 190s systolic even after hydralazine. I did review his prior outpatient records and he had a stress test that was -1 to 2 weeks ago. As he has continued elevated blood pressure, he may be having more of a type II NSTEMI/hypertensive emergency. He was started on a nitroglycerin drip and heparin drip after discussion with the mouthpiece maker, Dr. Harvey Murphy. Additionally, I discussed the patient with Dr. Mary Lewis for admission to the ICU. Critical care time 31 minutes. Disposition is admitted in guarded condition. History & Record Review Discussion w/independent historian: Patient and Family Additional record(s) reviewed:: Prior outpatient record, Prior ED visit and Prior labs Lab Data Attestation: I reviewed the patient's lab results. Labs: Laboratory Results - last 24 hr 12/24/23 12:20 WBC 12.0 H RBC 5.82 Hgb 17.3 H Hct 51.4 MCV 88.3 MCH 29.7 MCHC 33.7 RDW Std Deviation 43.1 RDW Coeff of Narcisa 13.5 Plt Count 274 MPV 10.9 Immature Gran % (Auto) 0.900 Neut % (Auto) 67.1 Lymph % (Auto) 20.4 [place] % (Auto) 10.0 Eos % (Auto) 0.9 Baso % (Auto) 0.7 Absolute Neuts (auto) 8.1 H Absolute Lymphs (auto) 2.44 Nucleated RBC % 0 PT 12.0 INR 0.9 APTT 24.7 D-Dimer Quant (PE/DVT) 0.47 Sodium 141 Potassium 3.6 Chloride 104 Carbon Dioxide 28.0 Anion Gap 9 BUN 14 Creatinine 1.13 Est GFR (MDRD) Af Amer 88 Est GFR (MDRD) Non-Af 72 BUN/Creatinine Ratio 12.4 Glucose 286 H Calcium 9.8 Troponin I High Sens 300 H* B-Natriuretic Peptide 103.6 H Radiography Diagnostic Testing: Clinical Impression(s) from Imaging Studies Chest X-Ray 12/24/23 12:50 IMPRESSION: Borderline cardiomegaly. The lungs are clear. Electronically Signed: Jin Woodall MD at 13:13 EST , Management Discussion w/another healthcare provider: Hospitalist (Dr. Mary Leiws) and Clinical Esthetician (Dr. Harvey Murphy) Critical Care Time Critical care time (excluding procedures): 30-74 minutes (31), Including time spent:, Discussing w/Patient &/or Family/Automotive Drivability Technician, Discussing w/Consultants, Arranging Admission or Transfer and Performing Direct Patient Care at Bedside Discharge Plan Dx/Rx/DC Orders Clinical Impression: Nicotine dependence, Hypertensive emergency, Non-ST elevation NM (NSTEMI), Chest pain Disposition Disposition: Acute Care [facility]
[2023-12-24] MEDS: Aspirin 81 MG TAB.CHEW 162 MG PO (12:43)
[2023-12-24] MEDS: hydrALAZINE 20 MG/ML Vial 10 MG IV (12:44)
--- NOTE | 2023-12-24 12:50 | RAD_ITS ---
STUDY: X-RAY CHEST REASON FOR EXAM: Male, 53 years old. Chest pain and tightness. TECHNIQUE: Single AP portable view of the chest. COMPARISON: Comparison is made with prior study dated November 21, 2023. FINDINGS: EKG electrodes are seen. The lungs are clear and expanded. There is no demonstrated pleural abnormality. There is borderline cardiomegaly. Normal mediastinum and soniya. Normal visualized pulmonary arteries. Normal visualized aortic arch and descending thoracic aorta. Normal visualized thoracic spine. Normal visualized ribs, clavicles, and shoulders. There is no demonstrated abnormality of the visualized soft tissue structures of the upper abdomen. RAD/Chest 1 View (Portable) IMPRESSION: Borderline cardiomegaly. The lungs are clear. Electronically Signed: Jin Woodall MD at 13:13 EST ,
--- NOTE | 2023-12-24 12:52 | ED.RN ---
pt took one nitro at approx. 1000 with no relief. pt took a second nitro at 1015 with some relief. at approx. 1200 chest pain returned and pt took a 3rd nitro with no relief so he presented to the ER.
[2023-12-24 13:01] LABS: Absolute Lymphocyte Count 2.44 X10^3/uL (0.83-4.51); Absolute Neutrophil Count 8.1 X10^3/uL (2.0-7.7); Basophil# 0.08 X10^3/uL; Basophil% 0.7 % (0-1); Eosinophil# 0.11 X10^3/uL; Eosinophils% 0.9 % (0-5); Hematocrit 51.4 % (40-54); Hemoglobin 17.3 g/dL (13.0-16.5); Lymphocyte # 2.44 X10^3/ul (0.83-4.51); Lymphocyte % 20.4 % (19-41); Mean Corp Hgb Conc 33.7 g/dL (32-36); Mean Corpuscular Hgb 29.7 pg (27.0-32.0); Mean Corpuscular Volume 88.3 fL (80-94); Mean Platelet Vol. 10.9 fl (6.2-12.0); NRBC Flagged by Analyzer 0 % (0-5); Neutrophil # 8.05 X10^3/uL (2.7-7.7); Neutrophil % 67.1 % (47-70); Platelet Count 274 K/mm3 (150-450); RBC Distribution Width CV 13.5 % (11.6-14.6); RBC Distribution Width SD 43.1 fl (35.1-43.9); Red Blood Count 5.82 M/mm3 (4.6-6.2)
[2023-12-24 13:08] LABS: D-Dimer Quantitative (DVT/PE) 0.47 FEU/ug/m (0.27-0.49)
[2023-12-24 13:23] LABS: BNP,B-Type NATRIURETIC PEPTIDE 103.6 pg/mL (0-100)
[2023-12-24 13:29] LABS: Anion Gap 9 (5-15); BUN 14 mg/dL (7-18); BUN/Creat Ratio 12.4 RATIO (10-20); Calcium,Total 9.8 mg/dL (8.5-10.1); Chloride 104 mmol/L (98-107); Creatinine, Serum 1.13 mg/dL (0.70-1.30); EST Glomerular Filtration Rate 72 mL/min (>60); Est Glom Filt Rate - Afr Amer 88 mL/min (>60); Glucose 286 mg/dL (74-106); Potassium 3.6 mmol/L (3.5-5.1); Sodium Level 141 mmol/L (136-145); Troponin-I HS (w/2H Reflex) 300 pg/mL (3.0-78.0)
[2023-12-24 14:43] LABS: International Normalized Ratio 0.9
--- NOTE | 2023-12-24 14:43 | NURSING ---
DR CARTER IN ROOM
[2023-12-24 14:44] LABS: Partial Thromboplast Time 24.7 Seconds (24.1-36.2)
--- NOTE | 2023-12-24 14:48 | NURSING ---
DR DOMINGUEZ FOR DR PLASENCIA
--- NOTE | 2023-12-24 14:54 | PCM.CONS.C ---
Assessment & Plan Assessment/Plan (1) Non-ST elevation [place] (NSTEMI): PLAN: The patient's symptoms are consistent with a hypertensive emergency. His blood pressures 200-2 20 systolic in the emergency department he has a prior history of similar presentation back in 2021. The patient does have known coronary artery disease, he is diabetic and hypertensive and continues to smoke. Troponins will be trended. The blood pressure will be aggressively treated with IV nitro in addition to as needed clonidine to get his blood pressure down in the 1 50-1 70 systolic range. His baseline blood pressure at his last stress test was 160 systolic. The patient will be anticoagulated with heparin IV nitroglycerin is instituted and his Plavix and aspirin will be continued. Pending the outcome of his trended troponins we will evaluate him for invasive evaluation of his coronary anatomy in the next 24 hours. (2) Hypertensive emergency: PLAN: Reinstitute the patient's home medical regiment. He currently does not have evidence of renal insufficiency. However he is diabetic and severely hypertensive. Will reinstitute his home oral medical therapy augment that with IV nitroglycerin and as needed p.o. clonidine as indicated. If he does not come under control with bedrest and reinstitution of his medical therapy secondary etiologies should be investigated. (3) Chest pain: QUALIFIERS: Chest pain type: chest pain due to myocardial ischemia Ischemic chest pain type: unspecified angina pectoris type Qualified Code(s): I25.9 - Chronic ischemic heart disease, unspecified PLAN: The patient's chest discomfort is consistent with an anginal equivalent he does complain of some shortness of breath and he has known coronary disease but he is also having a hypertensive urgency/emergency. (4) History of coronary artery stent placement: PLAN: The patient's secondary risk factors of continue to be aggressively treated with control of his blood pressure his diabetes and his hyperlipidemia. Continue his current atorvastatin 80 mg daily clopidogrel and aspirin. Will also be treated with aggressive treatment of his diabetes and blood pressure. PLAN: Plan 1. IV nitro and as needed clonidine. 2. Continue home medical therapy. 3. Trend troponins and if they continue to accelerate and elevate would consider invasive evaluation in the next 24 hours. 4. Smoking cessation. HPI Consult Data Date of Consult: 12/24/23 HPI Narrative Reason for Consultation: Past pain with positive troponins HPI Narrative: LATONYA ELDER, is a 53 M who presents complaining of chest discomfort that started approximately 1000 hrs. this morning. He took 2 sublingual nitros in sequence with resolution of the chest discomfort. The discomfort recurred at noon and he called EMS. He was brought to the emergency department where he presented with significant hypertension and his troponins were elevated. The patient had a recent stress test December 11 2023. The patient went 5 minutes on a treadmill at achieving 81% of age-predicted heart rate. He had a hypertensive response. This nuclear scan revealed an apical infarct with no induced ischemia. Patient reports that his symptoms have a clinical essentially resolved he has some residual soreness but his blood pressure remains over 200 systolic. An IV nitroglycerin drip is being instituted. The patient is also received IV hydralazine. He reports to me that he has taken all of his medications as ordered. The patient also complains of some shortness of breath but denies any PND orthopnea or lower extremity edema. He does report increased mucus production over the last few days but denies any fevers or chills. No one else has been sick in the family and he has not been exposed to any viral illnesses that he is aware of. Patient has a history of a non-ST segment elevation microinfarction November 2016 he had a stent placed to the second obtuse marginal branch of the circumflex. He presented in November 2020 with a non-STEMI previously placed stent in the LAD was patent the left circumflex artery had mild in-stent stenosis there was new disease involving the proximal and mid right coronary artery which was treated with stenting. He also was diagnosed with diabetes. In October 2021 who presented to the emergency department with chest discomfort and had a cardiac cath which resulted in drug-eluting stent to the mid LAD he Re-presented in December 2021 with chest discomfort his troponins did not increase and he was discharged home April 2022 he Re-presented to the emergency department with chest pain and a heart cath showed patency of the mid LAD stent OM stent and RCA stents the he had a proximal LAD lesion to the stent which was an intermediate stenosis of 50 to 60% and IFR repeated twice was within normal limits. The patient Re-presented again on June 26, 2022 with chest discomfort and a non-STEMI. His blood pressure was markedly elevated and his medications were adjusted he was not recath. The last time he was seen in the office was July 10, 2022. His EKG shows normal sinus rhythm with nonspecific ST-T wave changes which is similar to an old EKG that was present in the ED. [facility] Medical History Acute sinusitis, unspecified Asthma Atherosclerosis of [place] coronary artery [place] heart without angina pectoris Chronic obstructive pulmonary disease (COPD) Cluster headache Community acquired pneumonia COPD (chronic obstructive pulmonary disease) Coronary artery disease Diabetes Essential hypertension Headache History of non-ST elevation myocardial infarction (NSTEMI) (11/22/20) Hyperlipidemia Insulin dependent diabetes mellitus Ischemic cardiomyopathy Left shoulder pain Migraine Myocardial infarct Nicotine dependence Non-ST elevation [place] (NSTEMI) Obesity Obesity (BMI 30.0-34.9) Smoker Home Medications albuterol sulfate 90 mcg/actuation aerosol inhaler 2 puff inhalation 4X/DAY PRN Shortness Of Breath 04/27/22 [History Last Taken 04/27/22] aspirin 81 mg chewable tablet 81 mg PO DAILY heart health 04/27/22 [History Last Taken 04/27/22] atorvastatin 80 mg tablet 80 mg PO QHS cholesterol 04/27/22 [History Last Taken 04/26/22] loratadine 10 mg tablet 10 mg PO DAILY PRN allergies 06/26/22 [History Last Taken Unknown] isosorbide mononitrate 60 mg tablet,extended release 24 hr See Rx Instructions .Route .COMPLEX #60 TABLETS 04/02/23 [Rx Last Taken Unknown] insulin lispro 200 unit/mL (3 mL) subcutaneous pen (Humalog KwikPen U-200 Insulin) See Rx Instructions .Route .COMPLEX #19 mL 04/12/23 [Rx Last Taken Unknown] carvedilol 25 mg tablet 25 mg PO BIDCM #180 tabs 04/24/23 [Rx Last Taken Unknown] clonidine HCl 0.1 mg tablet 0.1 mg PO BID #180 tabs 04/24/23 [Rx Last Taken Unknown] clopidogrel 75 mg tablet See Rx Instructions .Route .COMPLEX #90 TABLETS 05/28/23 [Rx Last Taken Unknown] amlodipine 10 mg tablet 10 mg PO DAILY #90 tabs 06/25/23 [Rx Last Taken Unknown] insulin degludec 200 unit/mL (3 mL) subcutaneous pen (Tresiba FlexTouch U-200 insulin) 50 unit subcut QHS 11/21/23 [History Last Taken Unknown] lisinopril 20 mg tablet 20 mg PO BID blood pressure #180 tabs 11/26/23 [Rx Last Taken Unknown] ProAir RespiClick 90 mcg/actuation breath activated (albuterol sulfate) See Rx Instructions inhalation PRN PRN Bronchodilation #1 ea 12/12/23 [Rx Last Taken Unknown] nitroglycerin 0.4 mg sublingual tablet See Rx Instructions .Route .COMPLEX #25 tabs 12/14/23 [Rx Last Taken Unknown] ranolazine 1,000 mg tablet,extended release,12 hr 1,000 mg PO BID #180 tabs 12/18/23 [Rx Last Taken Unknown] Allergy/AdvReac Type Severity Reaction Status Date / Time amoxicillin trihydrate Allergy Rash Verified 12/06/23 15:11 [From Augmentin] potassium clavulanate Allergy Rash Verified 12/06/23 15:11 [From Augmentin] codeine AdvReac Nausea Verified 12/06/23 15:11 Family History Sister Myocardial infarction, Onset Age: 41 Diabetes Mother COPD (chronic obstructive pulmonary disease) Asthma Rheumatoid arthritis CVA (cerebral vascular accident) Hypertension Grandmother Diabetes Surgical History History of appendectomy History of coronary artery stent placement (11/18/21) History of hernia repair (2008) History of neck surgery History of umbilical hernia repair (1971) Social History Smoking Status: Current every day smoker tobacco type: cigarettes Tobacco: How many years used: 20 Electronic Cigarette Use: not used second hand exposure: Yes alcohol intake: current alcohol intake frequency: 0-2 drinks per day Alcohol type: beer substance use type: does not use caffeine: Yes Type: carbonated beverages Number of servings: 2 and tea Number of servings: 6 what type of physical activity do you participate in: none ROS Constitutional Constitutional: Reports as per HPI Eyes Eyes: Reports systems reviewed and no addt'l complaints, except as documented ENT HEENT: Reports systems reviewed and no addt'l complaints, except as documented Cardiovascular Cardiovascular: Reports as per HPI Respiratory/Chest Respiratory/Chest: Reports as per HPI Gastrointestinal Gastrointestinal: Reports systems reviewed and no addt'l complaints, except as documented Genitourinary Genitourinary: Reports systems reviewed and no addt'l complaints, except as documented Musculoskeletal Musculoskeletal: Reports systems reviewed and no addt'l complaints, except as documented Integumentary Integumentary: Reports systems reviewed and no addt'l complaints, except as documented Neurologic Neurologic: Reports systems reviewed and no addt'l complaints, except as documented Psychiatric Psychiatric: Reports systems reviewed and no addt'l complaints, except as documented Endocrine Endocrinology: Reports as per HPI Hematologic/Lymphatic Hematologic/Lymphatic: Reports systems reviewed and no addt'l complaints, except as documented Allergic/Immunologic Allergic/Immunologic: Reports systems reviewed and no addt'l complaints, except as documented Physical Exam Const oriented x3 HEENT normocephalic Eyes EOMs intact bilaterally Neck no JVD and no carotid bruits Chest inspection of chest normal Resp normal respiratory effort Auscultation: crackles bilateral and localized (Bases) and wheezes expiratory wheezes Cardio regular rate, regular rhythm, S1 normal heart sound, S2 normal heart sound, no murmurs, no rub and no gallops Cardio Narrative: Distant heart tones GI normal to inspection, nondistended, normoactive bowel sounds Extremity no pedal edema Skin no rashes or lesions noted Psych mental status grossly normal Risk Stratification Risk Stratification Applicable: Yes Age >/= 65: No >/= 3 CAD Risk Factors (HTN, HLD, DM, family hx of CAD, or current smoker): Yes Aspirin Use in the Past 7 Days: Yes Severe Angina (>/= episodes in 24 hours): Yes EKG ST Changes >/= 0.5mm: No Positive Cardiac Marker: Yes ESTEPHANIA Risk Stratification Score: 4 ESTEPHANIA % Risk: 20% Risk Charges/Coding Visit Charges Inpatient E&M: 62983 Init Hosp L3 Objective Data Vital Signs: Vital Signs Temp Pulse Resp BP Pulse Ox O2 Del Method 97.6 F L 94 17 210/119 H 94 Room Air 12/24/23 12:19 12/24/23 14:00 12/24/23 14:00 12/24/23 14:00 12/24/23 14:00 12/24/23 14:00 Oxygen Delivery Method Room Air Lab / Micro Data Attestation: I reviewed the patient's lab results. 12/24/23 12:20 12/24/23 12:20 Labs: Laboratory Results - last 24 hr 12/24/23 12:20: WBC 12.0 H, RBC 5.82, Hgb 17.3 H, Hct 51.4, MCV 88.3, MCH 29.7, MCHC 33.7, RDW Std Deviation 43.1, RDW Coeff of Narcisa 13.5, Plt Count 274, MPV 10.9, Immature Gran % (Auto) 0.900, Neut % (Auto) 67.1, Lymph % (Auto) 20.4, [place] % (Auto) 10.0, Eos % (Auto) 0.9, Baso % (Auto) 0.7, Absolute Neuts (auto) 8.1 H, Absolute Lymphs (auto) 2.44, Nucleated RBC % 0, PT 12.0, INR 0.9, APTT 24.7, D-Dimer Quant (PE/DVT) 0.47, Sodium 141, Potassium 3.6, Chloride 104, Carbon Dioxide 28.0, Anion Gap 9, BUN 14, Creatinine 1.13, Est GFR (MDRD) Af Amer 88, Est GFR (MDRD) Non-Af 72, BUN/Creatinine Ratio 12.4, Glucose 286 H, Calcium 9.8, Troponin I High Sens 300 H*, B-Natriuretic Peptide 103.6 H Cardiology Labs/Tests 12/24/23 12:20: WBC 12.0 H, RBC 5.82, Hgb 17.3 H, Hct 51.4, MCV 88.3, MCH 29.7, MCHC 33.7, Plt Count 274, MPV 10.9, Immature Gran % (Auto) 0.900, Neut % (Auto) 67.1, Lymph % (Auto) 20.4, [place] % (Auto) 10.0, Eos % (Auto) 0.9, Baso % (Auto) 0.7, Absolute Neuts (auto) 8.1 H, Nucleated RBC % 0, PT 12.0, INR 0.9, APTT 24.7, D-Dimer Quant (PE/DVT) 0.47, Sodium 141, Potassium 3.6, Chloride 104, Carbon Dioxide 28.0, Anion Gap 9, BUN 14, Creatinine 1.13, Est GFR (MDRD) Af Amer 88, Est GFR (MDRD) Non-Af 72, BUN/Creatinine Ratio 12.4, Glucose 286 H, Calcium 9.8, B-Natriuretic Peptide 103.6 H Rhythm: EKG: ECHO: Stress Test: Cardiac Cath: PCI: CT Surgery: Holter monitor: EPS: PPM: CXR: Chest CT Scan: Radiography Diagnostic Testing: Radiology Impression Chest X-Ray 12/24/23 12:50 IMPRESSION: Borderline cardiomegaly. The lungs are clear. Electronically Signed: Jin Woodall MD at 13:13 EST , EKG Initial EKG: Attestation: I personally reviewed and interpreted this EKG as follows: Prior EKG tracings: available for review Interpretation: Normal sinus rhythm with nonspecific ST-T wave changes no significant change from prior EKG.
[2023-12-24 14:55] LABS: Reflex Troponin-HS? (from REC) Y
[2023-12-24] MEDS: Nitroglycerin Infusion 250 ML 3 MG CONT INF (14:56)
--- NOTE | 2023-12-24 14:57 | NURSING ---
ICU [facility] NSTEMI, HYPERTENSIVE EMERGENCY
--- NOTE | 2023-12-24 15:03 | HP.PCM.HOS_ITS ---
HPI - General General Date of Admission: 12/24/23 Date of Service: 12/24/23 Chief Complaint: Chest pain, SOB HPI Narrative LATONYA ELDER, is a 53-year-old male history of COPD, tobacco use, hypertension, type 2 diabetes mellitus, CAD with 7 stents who presented to [facility] ED 12/24/2023 with chest pain for the past month that worsened today. Patient noted having a stress test a few weeks ago which was reportedly negative and his medicines changed but since that time he has been having chest pain and left arm pain with some nausea and vomiting. The pain is more like a pressure sensation. Patient tried nitroglycerin but his chest pain persisted prompting him to come to the ED. In the ED initial blood pressure 202/110. Chest x-ray with borderline cardiomegaly, BNP of 103 and first troponin of 300. Cardiology contacted and advised patient be placed on heparin drip and nitro drip, unclear if NSTEMI versus hypertensive emergency and it was recommended the patient be admitted. Hospitalist contacted for admission. Patient seen at bedside and reported chest pain off-and-on for a month but this morning woke up with the pain and shortness of breath, took a nitro initially which was not very helpful, took a second 1 which did give him some relief and he laid down for 15 minutes but the pain returned so he took another nitro and came to the hospital. Has had some shortness of breath since yesterday, has a cough that is chronic and chronic leg swelling. Just not feeling well overall though chest pain is down to 1 or 2 at present. Denies any other acute complaints PFSH Medical History Acute sinusitis, unspecified Asthma Atherosclerosis of [place] coronary artery of [place] heart without angina pectoris Chronic obstructive pulmonary disease (COPD) Cluster headache Community acquired pneumonia COPD (chronic obstructive pulmonary disease) Coronary artery disease Diabetes Essential hypertension Headache History of non-ST elevation myocardial infarction (NSTEMI) (11/22/20) Hyperlipidemia Insulin dependent diabetes mellitus Ischemic cardiomyopathy Left shoulder pain Migraine Myocardial infarct Nicotine dependence Non-ST elevation [place] (NSTEMI) Obesity Obesity (BMI 30.0-34.9) Smoker Home Medications albuterol sulfate 90 mcg/actuation aerosol inhaler 2 puff inhalation 4X/DAY PRN Shortness Of Breath 04/27/22 [History Last Taken 04/27/22] aspirin 81 mg chewable tablet 81 mg PO DAILY heart health 04/27/22 [History Last Taken 04/27/22] atorvastatin 80 mg tablet 80 mg PO QHS cholesterol 04/27/22 [History Last Taken 04/26/22] loratadine 10 mg tablet 10 mg PO DAILY PRN allergies 06/26/22 [History Last Taken Unknown] isosorbide mononitrate 60 mg tablet,extended release 24 hr See Rx Instructions .Route .COMPLEX #60 TABLETS 04/02/23 [Rx Last Taken Unknown] insulin lispro 200 unit/mL (3 mL) subcutaneous pen (Humalog KwikPen U-200 Insulin) See Rx Instructions .Route .COMPLEX #19 mL 04/12/23 [Rx Last Taken Un known] carvedilol 25 mg tablet 25 mg PO BIDCM #180 tabs 04/24/23 [Rx Last Taken Unknown] clonidine HCl 0.1 mg tablet 0.1 mg PO BID #180 tabs 04/24/23 [Rx Last Taken Unknown] clopidogrel 75 mg tablet See Rx Instructions .Route .COMPLEX #90 TABLETS 05/28/23 [Rx Last Taken Unknown] amlodipine 10 mg tablet 10 mg PO DAILY #90 tabs 06/25/23 [Rx Last Taken Unknown] insulin degludec 200 unit/mL (3 mL) subcutaneous pen (Tresiba FlexTouch U-200 insulin) 50 unit subcut QHS 11/21/23 [History Last Taken Unknown] lisinopril 20 mg tablet 20 mg PO BID blood pressure #180 tabs 11/26/23 [Rx Last Taken Unknown] ProAir RespiClick 90 mcg/actuation breath activated (albuterol sulfate) See Rx Instructions inhalation PRN PRN Bronchodilation #1 ea 12/12/23 [Rx Last Taken Unknown] nitroglycerin 0.4 mg sublingual tablet See Rx Instructions .Route .COMPLEX #25 tabs 12/14/23 [Rx Last Taken Unknown] ranolazine 1,000 mg tablet,extended release,12 hr 1,000 mg PO BID #180 tabs 12/18/23 [Rx Last Taken Unknown] Allergy/AdvReac Type Severity Reaction Status Date / Time amoxicillin trihydrate Allergy Rash Verified 12/06/23 15:11 [From Augmentin] potassium clavulanate Allergy Rash Verified 12/06/23 15:11 [From Augmentin] codeine AdvReac Nausea Verified 12/06/23 15:11 Family History Sister Myocardial infarction, Onset Age: 41 Diabetes Mother COPD (chronic obstructive pulmonary disease) Asthma Rheumatoid arthritis CVA (cerebral vascular accident) Hypertension Grandmother Diabetes Surgical History History of appendectomy History of coronary artery stent placement (11/18/21) History of hernia repair (2008) History of neck surgery History of umbilical hernia repair (1971) Social History Smoking Status: Current every day smoker tobacco type: cigarettes Tobacco: How many years used: 20 Electronic Cigarette Use: not used second hand exposure: Yes alcohol intake: current alcohol intake frequency: 0-2 drinks per day Alcohol type: beer substance use type: does not use caffeine: Yes Type: carbonated beverages Number of servings: 2 and tea Number of servings: 6 what type of physical activity do you participate in: none ROS ROS Narrative General: Denies fever/chills HENT: Some chronic headaches, denies stuffy nose, denies sore throat EYES: Denies changes in vision Resp: Chronic cough, shortness of breath today Cardiac: Substernal chest pain today GI: Denies abdominal pain, denies changes in bowel, denies nausea/vomiting : Denies changes in urination Extremity: Some chronic swelling in extremities MSK: Denies weakness Neuro: Denies any numbness/tingling Heme: Denies any bleeding or bruising Skin: Denies rashes Psychiatric: No complaints voiced Vital Signs Vital Signs Vital Signs: 12/24/23 12:19 12/24/23 12:50 12/24/23 12:50 Temperature 97.6 F L Temperature Source Temporal Pulse Rate Respiratory Rate Respiratory Effort Normal Blood Pressure Blood Pressure Mean Pulse Ox 93 Oxygen Delivery Method Room Air 12/24/23 12:40 12/24/23 13:08 12/24/23 14:00 Temperature Temperature Source Pulse Rate 100 94 Respiratory Rate 16 17 Respiratory Effort Blood Pressure 202/110 H 197/115 H 210/119 H Blood Pressure Mean 140 142 149 Pulse Ox 98 94 Oxygen Delivery Method Room Air Room Air 12/24/23 14:56 Temperature Temperature Source Pulse Rate 93 Respiratory Rate Respiratory Effort Blood Pressure 204/123 H Blood Pressure Mean 150 Pulse Ox Oxygen Delivery Method Physical Exam Narrative General: Alert, oriented, no apparent distress HEENT: Atraumatic, normocephalic Eyes: Anicteric, normal conjunctiva, extraocular movements grossly intact Neck: Supple Respiratory: Clear to auscultation bilaterally, normal respiratory effort Cardiovascular: Regular rate and rhythm GI: Soft, nontender, nondistended Extremities: No edema Musculoskeletal: Moving all extremities Neuro: No overt focal neurological deficits Skin: No rashes appreciated Psych: Cooperative Results Lab / Micro Data 12/24/23 12:20 12/24/23 12:20 Labs: Laboratory Results - last 24 hr 12/24/23 12:20: WBC 12.0 H, RBC 5.82, Hgb 17.3 H, Hct 51.4, MCV 88.3, MCH 29.7, MCHC 33.7, RDW Std Deviation 43.1, RDW Coeff of Narcisa 13.5, Plt Count 274, MPV 10.9, Immature Gran % (Auto) 0.900, Neut % (Auto) 67.1, Lymph % (Auto) 20.4, [place] % (Auto) 10.0, Eos % (Auto) 0.9, Baso % (Auto) 0.7, Absolute Neuts (auto) 8.1 H, Absolute Lymphs (auto) 2.44, Nucleated RBC % 0, PT 12.0, INR 0.9, APTT 24.7, D-Dimer Quant (PE/DVT) 0.47, Sodium 141, Potassium 3.6, Chloride 104, Carbon Dioxide 28.0, Anion Gap 9, BUN 14, Creatinine 1.13, Est GFR (MDRD) Af Amer 88, Est GFR (MDRD) Non-Af 72, BUN/Creatinine Ratio 12.4, Glucose 286 H, Calcium 9.8, Troponin I High Sens 300 H*, B-Natriuretic Peptide 103.6 H Imaging Radiology Impression Chest X-Ray 12/24/23 12:50 IMPRESSION: Borderline cardiomegaly. The lungs are clear. Electronically Signed: Jin Woodall MD at 13:13 EST , Assessment & Plan Assessment/Plan (1) Elevated troponin: (2) Hypertensive urgency: (3) Nicotine dependence: QUALIFIERS: Nicotine product type: cigarettes Substance use status: uncomplicated Qualified Code(s): F17.210 - Nicotine dependence, cigarettes, uncomplicated (4) History of coronary artery stent placement: (5) Essential hypertension: (6) COPD (chronic obstructive pulmonary disease): QUALIFIERS: COPD type: unspecified COPD Qualified Code(s): J44.9 - Chronic obstructive pulmonary disease, unspecified PLAN: Plan # Elevated troponin -Concern for NSTEMI given sx, elevated trop, and history versus hypertensive emergency given significant elevation in blood pressure -Initial troponin 300, will trend -EKG with no significant changes since EKG November 21, 2023 -Admit to telemetry -Discussed with cardiology, heparin drip, nitro drip -Asa, statin -Echocardiogram, last echo in 2020 with EF 50 to 55% with moderate concentric left ventricular hypertrophy and grade 1 diastolic dysfunction -Cardiology consult -Lipid panel -Will continue Ranexa and Imdur -Heart healthy diet # Hypertensive urgency versus emergency -Initial blood pressure 202/110 -Repeat 197/115 when trending back up -Unclear if elevated blood pressure causing chest pain and elevated troponin i.e. hypertensive emergency or if blood pressure elevated because patient having chest pain -Continue home blood pressure medications once med rec confirmed -Discussed with cardiology, starting nitro drip, if this does not get BP under control will give a dose of clonidine -May need outpatient evaluation for secondary causes of hypertension given multiple medications with persistent elevated blood pressure # History of coronary artery disease -With 7 stents -As above # COPD -Continue present management -Albuterol as needed #Type 2 diabetes mellitus -Glucose checks and sliding scale insulin -Will check A1c -Continue long-acting insulin, patient to be n.p.o. at midnight so we will continue but decrease the dose #Tobacco use -Advise cessation -Nicotine replacement available if desired DVT ppx: hep gtt Charges/Coding Visit Charges Inpatient E&M: 31484 Init Hosp L2
[2023-12-24 15:18] LABS: Troponin-I HS 280 pg/mL (3.0-78.0)
--- NOTE | 2023-12-24 16:16 | ECHOD_ITS ---
Reason For Study: CHEST PAIN Procedure This was a 2D Doppler, Color Flow transthoracic echocardiogram. Exam performed portable in patient room. Left Ventricle Moderate concentric left ventricular hypertrophy. Normal LV size. Apical false tendon noted. Left ventricular systolic function is lower limits of normal. The estimated ejection fraction is 50 %. Normal diastololic function. Right Ventricle Normal RV size. Normal systolic function. Atria The left and right atria are normal. Mitral Valve The mitral valve is structurally normal. No prolapse or stenosis seen. Trivial mitral valve insufficiency. Tricuspid Valve Normal tricuspid valve. Trivial tricuspid valve insufficiency. Right ventricular systolic pressure estimated to be 27 mmHg. Aortic Valve Trisinus/trileaflet aortic valve. Pulmonic Valve Normal pulmonic valve. Trivial pulmonic valve insufficiency. Great Vessels Normal aortic root. Pericardium/Pleural No pericardial effusion. MMode/2D Measurements & Calculations LVIDd: 5.4 cm IVSd: 1.3 cm Ao root diam: 3.5 cm LVIDs: 3.8 cm LVPWd: 1.5 cm RVDd: 3.9 cm FS: 30.0 % LAV(MOD-bp): 48.0 ml LVAd ap4: 37.8 cm2 SV(MOD-sp4): 67.8 ml LAV(MOD-bp) Indexed: 22.0 ml/m2 LVLd ap4: 8.7 cm LAV(MOD-sp2): 43.1 ml EDV(MOD-sp4): 135.4 ml LAV(MOD-sp4): 48.1 ml EDV(sp4-el): 140.1 ml LVAs ap4: 25.3 cm2 LVLs ap4: 7.8 cm ESV(MOD-sp4): 67.6 ml ESV(sp4-el): 69.3 ml EF(MOD-sp4): 50.1 % EF(sp4-el): 50.6 % SV(sp4-el): 70.8 ml LA A4 area: 19.2 cm2 LA dimension(2D): 3.9 cm RA A4 area: 15.8 cm2 TAPSE: 2.3 cm Time Measurements MV dec time: 0.23 sec Doppler Measurements & Calculations MV E max pancho: 64.0 cm/sec Lat Peak E' Pancho: 4.3 cm/sec Med Peak E' Pancho: 5.5 cm/sec MV A max pancho: 75.9 cm/sec E/E' lat: 14.8 E/E' med: 11.5 MV E/A: 0.84 Ao V2 max: 119.1 cm/sec LV V1 max: 105.2 cm/sec PA V2 max: 91.3 cm/sec Ao max P.7 mmHg LV V1 max P.4 mmHg TR max pancho: 242.2 cm/sec TR max P.5 mmHg ECHO/Echo Complete Interpretation Summary The estimated ejection fraction is 50 %. Moderate concentric left ventricular hypertrophy. Compared to prior study, there is no significant change. Ordering Physician: Mary Lewis Referring Physician: BEKA MCKEON Performed By: Opal Taylor RDCS
[2023-12-24] MEDS: Acetaminophen 325 MG Tablet 650 MG PO (16:44)
[2023-12-24] MEDS: oxyCODONE 5 MG Tablet PO ×2 (16:44→20:35)
[2023-12-24] MEDS: Heparin Injection (Vial) 5,000 UNIT/ML VIAL 4000 UNIT IV (17:08)
[2023-12-24] MEDS: HEPARIN/D5w 25,000 UNITS 25,000 UNITS/250 ML IV.SOLN. 10 UNITS CONT INF (17:10)
--- OUTSIDE RECORDS SUMMARY | 2023-12-24 17:12 | XMS RPT_ITS | CCD ---
Author Name Unknown Address [address] [place] [address] Organization [facility] Care Team Providers Care Fuel Handler Name Role Phone MD Sandra, Eric S Unavailable Roof KENNEL ASSISTANT, Hesham Sharma Unavailable Valeriano Weir Unavailable Unavailable MD Flores Cyril S Unavailable Valeriano Weir Unavailable Unavailable VETO Liang, Crista Duran Unavailable Unavailabl e Allergies Allergy Classification Reported Allergen(s) Allergy Type Date of Onset Reaction(s) Facility (18 sources) amoxicillin drug allergy 12-22-2016 severe rash, uknnown [facility] Work Phone: [phone] (9 sources) amoxicillin / clavulanate drug allergy 12-27-2016 severe rash [facility] Work Phone: [phone] (18 sources) codeine drug allergy 12-22-2016 projectile vomiting, unknown [facility] Work Phone: [phone] Medications Completed/Discontinued Medications Medication Drug Class(es) Dates Sig (Normalized) Sig (Original) amLODIPine 10 mg oral tablet (20 sources) Dihydropyridine [facility] Start: 07-11-2017 take 1 tablet by mouth once daily AMLODIPINE BESYLATE 10 MG TABS One tablet by mouth daily AMLODIPINE BESYLATE [id number] Hesham Canchola NP Problems Active Problems Problem [...] disease (17 sources) Atherosclerotic heart disease of [place] coronary artery without angina pectoris; Translations: [Coronary [...] Mass Index) 31.81 kg/m2 MD [facility] Work Phone: 07-17-2017 10:05-0400 BP Diastolic [...] BMI (Body Mass Index) 34.39 kg/m2 [facility] Work Phone: 02-06-2017 14:17-0400 Body weight 102.6 kg Harumi DeFinis [facility] Work Phone: 02-06-2017 14:17-0400 BP Diastolic 90 mm[Hg] Harumi DeFinis [facility] Work Phone: 02-06-2017 14:17-0400 BP Systolic 140 mm[Hg] Harumi [employer] [facility] Work Phone: 02-06-2017 14:17-0400 Height 172.72 cm Harumi DeFinis [facility] Work Phone: 02-06-2017 14:17-0400 Pulse (Heart Rate) 88 /min [facility]umi [employer] [facility] Work Phone: 02-06-2017 14:17-0400 Pulse Oximetry 98 % Harumi [employer]Fin[employer] [facility] Work Phone: 02-06-2017 14:17-0400 Respiratory Rate 24 /min Harumi DeFinis [facility] Work Phone: 02-06-2017 14:17-0400 Weight 102.6 kg Eric Flores MD [facility] Work Phone: 12-27-2016 09:070500 BSA (Body Surface Area) 2.12 [facility]2 [facility] Work Phone: Procedures Date Procedure [...] 02-06-2017 Follow Up Appt 3 months Renee hTomas Start: 02-06-2017 End: 02-06-2017 MMRenee Flores MD [...] Lipid panel [AGGREGATE] *Lipid Profile CC PCP [facility] Work Phone: Start: 07-17-2017 End: 07-17-2017 Appointment Appointment [facility] Work Phone: Start: 07-13-2017 End: 07-13-2017 Appointment Appointment [facility] Work Phone: Start: 04-27-2017 End: 04-27-2017 Appointment Appointment [facility] Work Phone: Start: 04-27-2017 End: 04-27-2017 *BMP *BMP [facility] Work Phone: Start: 04-27-2017 End: 04-27-2017 *Hepatic Function Panel *Hepatic Function Panel [facility] Work Phone: Start: 04-27-2017 End: 04-27-2017 Follow Up Appt 6 months Follow Up Appt 6 months [facility] Work Phone: Start: 04-27-2017 End: 04-27-2017 Lipid panel [AGGREGATE] *Lipid Profile CC PCP [facility] Work Phone: Start: 04-27-2017 End: 04-27-2017 MMM MMM [facility] Work Phone: Start: 02-06-2017 End: 02-06-2017 Electrocardiogram, complete EKG (In office) [facility] Work Phone: Start: 02-06-2017 End: 02-06-2017 Follow Up Appt 3 months Follow Up Appt 3 months [facility] Work Phone: Start: 02-06-2017 End: 02-06-2017 MMM MMM [facility] Work Phone: Start: 12-27-2016 End: 12-27-2016 *Hepatic Function Panel *Hepatic Function Panel [facility] Work Phone: Start: 12-27-2016 End: 12-27-2016 Follow Up Appt 4 months Follow Up Appt 4 months [facility] Work Phone: Start: 12-27-2016 End: 12-27-2016 Lipid 1996 panel *Lipid Profile CC PCP [facility] Work Phone: Start: 12-27-2016 End: 12-27-2016 MMM MMM [facility] Work Phone: Patient Education HYPERLIPIDEMIA [facility] Work Phone: Additional Source Comments [...] BE BASED ON THE PRIMARY CLINICAL RECORDS. [employer] [facility]. provides no warranty or guarantee of the accuracy or completeness of information in this document.
--- OUTSIDE RECORDS SUMMARY | 2023-12-24 17:24 | XMS RPT_ITS | CCD ---
Author Name Unknown Address [address] [place] [address] Organization [facility] Care Team Providers Care Grade And Center Marker Name Role Phone MD Sandra, Eric S Unavailable Roof PLASTIC DIE MAKER APPRENTICE, Hesham Sharma Unavailable Valeriano Weir Unavailable Unavailable MD Flores Cyril S Unavailable Valeriano Weir Unavailable Unavailable VETO Liang, Crista Duran Unavailable Unavailabl e Allergies Allergy Classification Reported Allergen(s) Allergy Type Date of Onset Reaction(s) Facility (18 sources) amoxicillin drug allergy 12-22-2016 severe rash, uknnown [facility] Work Phone: [phone] (9 sources) amoxicillin / clavulanate drug allergy 12-27-2016 severe rash [facility] Work Phone: [phone] (18 sources) codeine drug allergy 12-22-2016 projectile vomiting, unknown [facility] Work Phone: [phone] Medications Completed/Discontinued Medications Medication Drug Class(es) Dates Sig (Normalized) Sig (Original) amLODIPine 10 mg oral tablet (20 sources) Dihydropyridine Calcium [place] Start: 07-11-2017 take 1 tablet by mouth once daily AMLODIPINE BESYLATE 10 MG TABS One tablet by mouth daily AMLODIPINE BESYLATE [id number] Hesham Canchola NP Problems Active Problems Problem [...] disease (17 sources) Atherosclerotic heart disease of [place] coronary artery without angina pectoris; Translations: [Coronary [...] Mass Index) 31.81 kg/m2 MD [facility] [facility] Work Phone: 07-17-2017 10:05-0400 BP Diastolic [...] BMI (Body Mass Index) 34.39 kg/m2 [facility] [employer] Work Phone: 02-06-2017 14:17-0400 Body weight 102.6 kg Harumi DeFinis [facility] Work Phone: 02-06-2017 14:17-0400 BP Diastolic 90 mm[Hg] Harumi DeFinis [facility] Work Phone: 02-06-2017 14:17-0400 BP Systolic 140 mm[Hg] Harumi DeFinJelly[employer] [facility] Work Phone: 02-06-2017 14:17-0400 Height 172.72 cm Harumi DeFinis [facility] Work Phone: 02-06-2017 14:17-0400 Pulse (Heart Rate) 88 /min Harumi DeFinJelly[employer] [facility] Work Phone: 02-06-2017 14:17-0400 Pulse Oximetry 98 % Harumi DeFinJelly[employer] [facility] Work Phone: 02-06-2017 14:17-0400 Respiratory Rate 24 /min Harumi DeFinis [facility] Work Phone: 02-06-2017 14:17-0400 Weight 102.6 kg Eric Flores MD [facility] Work Phone: 12-27-2016 09:070500 BSA (Body Surface Area) 2.12 m2 [facility] [employer] [facility] Work Phone: Procedures Date Procedure [...] Lipid panel [AGGREGATE] *Lipid Profile CC PCP [facility] Work Phone: Start: 07-17-2017 End: 07-17-2017 Appointment Appointment [facility] Work Phone: Start: 07-13-2017 End: 07-13-2017 Appointment Appointment [facility] Work Phone: Start: 04-27-2017 End: 04-27-2017 Appointment Appointment [facility] Work Phone: Start: 04-27-2017 End: 04-27-2017 *BMP *BMP [facility] Work Phone: Start: 04-27-2017 End: 04-27-2017 *Hepatic Function Panel *Hepatic Function Panel [facility] Work Phone: Start: 04-27-2017 End: 04-27-2017 Follow Up Appt 6 months Follow Up Appt 6 months [facility] Work Phone: Start: 04-27-2017 End: 04-27-2017 Lipid panel [AGGREGATE] *Lipid Profile CC PCP [facility] Work Phone: Start: 04-27-2017 End: 04-27-2017 MMM MMM [facility] Work Phone: Start: 02-06-2017 End: 02-06-2017 Electrocardiogram, complete EKG (In office) [facility] Work Phone: Start: 02-06-2017 End: 02-06-2017 Follow Up Appt 3 months Follow Up Appt 3 months [facility] Work Phone: Start: 02-06-2017 End: 02-06-2017 MMM MMM [facility] Work Phone: Start: 12-27-2016 End: 12-27-2016 *Hepatic Function Panel *Hepatic Function Panel [facility] Work Phone: Start: 12-27-2016 End: 12-27-2016 Follow Up Appt 4 months Follow Up Appt 4 months [facility] Work Phone: Start: 12-27-2016 End: 12-27-2016 Lipid 1996 panel *Lipid Profile CC PCP [facility] Work Phone: Start: 12-27-2016 End: 12-27-2016 MMM MMM [facility] Work Phone: Patient Education HYPERLIPIDEMIA [facility] Work Phone: Additional Source Comments [...] BE BASED ON THE PRIMARY CLINICAL RECORDS. [employer] [facility]. provides no warranty or guarantee of the accuracy or completeness of information in this document.
[2023-12-24 17:34] LABS: Bedside Glucose 162 mg/dL (74-106)
[2023-12-24] MEDS: Insulin Lispro 100 UNIT/ML INSULN.PEN SC ×2 (18:23→20:39)
[2023-12-24 18:51] LABS: Troponin-I HS 384 pg/mL (3.0-78.0)
[2023-12-24] MEDS: Acetaminophen 500 MG Tablet PO (20:33)
[2023-12-24] MEDS: Ranolazine 500 MG Tablet 1000 MG PO (20:34)
[2023-12-24] MEDS: cloNIDine HCl 0.1 MG Tablet 0.100000000000000006 MG PO (20:34)
[2023-12-24] MEDS: Lisinopril 20 MG Tablet PO (20:35)
[2023-12-24] MEDS: Atorvastatin Calcium 80 MG Tablet PO (20:35)
[2023-12-24] MEDS: 0.9% Saline Lock 10 ML Syringe IV ×2 (20:35→23:36)
[2023-12-24] MEDS: Insulin Glargine-YFGN 100 UNIT/ML Pen 25 UNIT SC (20:38)
[2023-12-24 20:58] LABS: Bedside Glucose 233 mg/dL (74-106)
[2023-12-24 21:26] LABS: Troponin-I HS 387 pg/mL (3.0-78.0)
[2023-12-24 23:30] LABS: Partial Thromboplast Time 27.6 Seconds (24.1-36.2)
[2023-12-24] MEDS: Heparin Injection (Vial) 5,000 UNIT/ML VIAL IV (23:36)
[2023-12-25] VITALS (45 sets, daily range): BP systolic 101–185; BP diastolic 48–114; PULSE 72–94; RESP 14–25; TEMP 36.6–37; O2SAT 91–100
[2023-12-25] MEDS: Acetaminophen 325 MG Tablet 650 MG PO (05:16)
[2023-12-25] MEDS: oxyCODONE 5 MG Tablet PO ×3 (05:16→16:47)
[2023-12-25 05:33] LABS: Absolute Neutrophil Count 10.6 X10^3/uL (2.0-7.7); Basophil# 0.06 X10^3/uL; Basophil% 0.4 % (0-1); Eosinophil# 0.14 X10^3/uL; Hemoglobin 15.1 g/dL (13.0-16.5); Lymphocyte % 14.1 % (19-41); Mean Corp Hgb Conc 34.3 g/dL (32-36); Mean Corpuscular Volume 87.3 fL (80-94); Mean Platelet Vol. 10.2 fl (6.2-12.0); Monocyte# 1.25 X10^3/uL; Monocyte% 8.8 % (0-10); NRBC Flagged by Analyzer 0 % (0-5); Neutrophil # 10.63 X10^3/uL (2.7-7.7); Neutrophil % 75.1 % (47-70); Platelet Count 246 K/mm3 (150-450); RBC Distribution Width CV 13.5 % (11.6-14.6); RBC Distribution Width SD 43.6 fl (35.1-43.9); Red Blood Count 5.04 M/mm3 (4.6-6.2); White Blood Count 14.2 K/mm3 (4.4-11.0)
[2023-12-25 05:45] LABS: Partial Thromboplast Time 28.1 Seconds (24.1-36.2)
[2023-12-25] MEDS: Heparin Injection (Vial) 5,000 UNIT/ML VIAL IV ×2 (06:02→12:42)
[2023-12-25 06:08] LABS: ALB/GLOB Ratio 0.9 RATIO (0.9-2.4); AST(SGOT) 14 U/L (15-37); Alanine Aminotransfer ALT/SGPT 34 U/L (16-61); Albumin, Serum 3.3 g/dL (3.2-5.0); Alkaline Phosphatase 108 U/L (45-117); Anion Gap 5 (5-15); BUN 12 mg/dL (7-18); BUN/Creat Ratio 13.8 RATIO (10-20); Calcium,Total 8.7 mg/dL (8.5-10.1); Chloride 105 mmol/L (98-107); Cholesterol 171 mg/dL (200); Creatinine, Serum 0.87 mg/dL (0.70-1.30); EST Glomerular Filtration Rate 98 mL/min (>60); Est Glom Filt Rate - Afr Amer 119 mL/min (>60); Estimated Creatinine Clearance 115.49 ml/min; Globulin 3.7 g/dL (2.2-4.2); Glucose 179 mg/dL (74-106); High Density Lipoprotein 34 mg/dL; Magnesium 1.8 mg/dL (1.6-2.6); Potassium 3.4 mmol/L (3.5-5.1); Sodium Level 136 mmol/L (136-145); Thyroid Stim Hormone (TSH) 1.74 uIU/mL (0.358-3.74); Triglycerides 181 mg/dL; Very Low Density Lipoprotein 36 mg/dL (5-40)
[2023-12-25] MEDS: Aspirin E.C. 81 MG Tablet PO (06:21)
[2023-12-25] MEDS: Lisinopril 20 MG Tablet PO ×2 (06:21→21:17)
[2023-12-25] MEDS: Clopidogrel Bisulfate 75 MG Tablet PO (06:21)
[2023-12-25] MEDS: Carvedilol 25 MG Tablet PO ×2 (06:21→16:48)
[2023-12-25] MEDS: Potassium Chloride Oral Tablet 20 MEQ PO (06:21)
[2023-12-25] MEDS: Ranolazine 500 MG Tablet 1000 MG PO (06:21)
[2023-12-25] MEDS: amLODIPine 10 MG Tablet PO (06:22)
[2023-12-25] MEDS: cloNIDine HCl 0.1 MG Tablet 0.100000000000000006 MG PO ×2 (06:22→21:16)
[2023-12-25] MEDS: Isosorbide Mononitrate 60 MG Tablet PO (06:23)
[2023-12-25 06:47] LABS: Bedside Glucose 196 mg/dL (74-106)
--- NOTE | 2023-12-25 07:47 | PCM.PN.CARD ---
Subjective Subjective Patient reports he had an episode of chest pain at rest approximately 0300 hrs. this morning that awoke him from sleep lasted about 5 minutes and resolved. The patient's blood pressure had finally come down after 2 extra doses of clonidine and IV nitroglycerin. Blood pressure this morning is 120 over 70s. The patient denies any chest symptoms this morning. Troponins were 2 80-3 84-3 87. His BNP was 104. Echocardiogram is pending at this time. The patient reports that the symptoms are identical to what he experienced prior to his last stenting procedure. However, he has had cast where he presented with similar symptoms and did not need further intervention. Objective Data Vital Signs: Vital Signs Temp Pulse Resp BP Pulse Ox O2 Del Method 98.4 F 77 16 124/72 H 94 Room Air 12/25/23 06:00 12/25/23 07:32 12/25/23 07:32 12/25/23 07:32 12/25/23 07:32 12/25/23 07:32 Oxygen Delivery Method Room Air Weight: 226 lb 14.4 oz Body Mass Index (BMI) 34.4 Intake & Output: Intake and Output for Last 24 Hours 12/23/23 12/24/23 12/25/23 23:59 23:59 23:59 Intake Total 114.28 / 623.28 720.20 / 720.20 Balance 114.28 / 623.28 720.20 / 720.20 Lab / Micro Data Attestation: I reviewed the patient's lab results. 12/25/23 05:25 12/25/23 05:25 Labs: Laboratory Results - last 24 hr 12/24/23 12:20: WBC 12.0 H, RBC 5.82, Hgb 17.3 H, Hct 51.4, MCV 88.3, MCH 29.7, MCHC 33.7, RDW Std Deviation 43.1, RDW Coeff of Narcisa 13.5, Plt Count 274, MPV 10.9, Immature Gran % (Auto) 0.900, Neut % (Auto) 67.1, Lymph % (Auto) 20.4, [place] % (Auto) 10.0, Eos % (Auto) 0.9, Baso % (Auto) 0.7, Absolute Neuts (auto) 8.1 H, Absolute Lymphs (auto) 2.44, Nucleated RBC % 0, PT 12.0, INR 0.9, APTT 24.7, D-Dimer Quant (PE/DVT) 0.47, Sodium 141, Potassium 3.6, Chloride 104, Carbon Dioxide 28.0, Anion Gap 9, BUN 14, Creatinine 1.13, Est GFR (MDRD) Af Amer 88, Est GFR (MDRD) Non-Af 72, BUN/Creatinine Ratio 12.4, Glucose 286 H, Calcium 9.8, Troponin I High Sens 300 H*, B-Natriuretic Peptide 103.6 H 12/24/23 14:20: Troponin I High Sens 280 H* 12/24/23 17:13: POC Glucose 162 H 12/24/23 18:25: Troponin I High Sens 384 H* 12/24/23 20:38: POC Glucose 233 H 12/24/23 20:55: Troponin I High Sens 387 H* 12/24/23 23:10: APTT 27.6 12/25/23 05:25: WBC 14.2 H, RBC 5.04, Hgb 15.1, Hct 44.0, MCV 87.3, MCH 30.0, MCHC 34.3, RDW Std Deviation 43.6, RDW Coeff of Narcisa 13.5, Plt Count 246, MPV 10.2, Immature Gran % (Auto) 0.600, Neut % (Auto) 75.1 H, Lymph % (Auto) 14.1 L, [place] % (Auto) 8.8, Eos % (Auto) 1.0, Baso % (Auto) 0.4, Absolute Neuts (auto) 10.6 H, Absolute Lymphs (auto) 2.00, Nucleated RBC % 0, APTT 28.1, Sodium 136, Potassium 3.4 L, Chloride 105, Carbon Dioxide 26.0, Anion Gap 5, BUN 12, Creatinine 0.87, Estim Creat Clear Calc 115.49, Est GFR (MDRD) Af Amer 119, Est GFR (MDRD) Non-Af 98, BUN/Creatinine Ratio 13.8, Glucose 179 H, Calcium 8.7, Magnesium 1.8, Total Bilirubin 0.60, AST 14 L, ALT 34, Alkaline Phosphatase 108, Total Protein 7.0, Albumin 3.3, Globulin 3.7, Albumin/Globulin Ratio 0.9, Triglycerides 181, Cholesterol 171, LDL Cholesterol 101, VLDL Cholesterol 36, HDL Cholesterol 34 L, TSH 1.74 12/25/23 06:25: POC Glucose 196 H Rhythm Strip Rhythm Strip: Sinus Rhythm Cardiology Labs/Tests 12/24/23 12:20: WBC 12.0 H, RBC 5.82, Hgb 17.3 H, Hct 51.4, MCV 88.3, MCH 29.7, MCHC 33.7, Plt Count 274, MPV 10.9, Immature Gran % (Auto) 0.900, Neut % (Auto) 67.1, Lymph % (Auto) 20.4, [place] % (Auto) 10.0, Eos % (Auto) 0.9, Baso % (Auto) 0.7, Absolute Neuts (auto) 8.1 H, Nucleated RBC % 0, PT 12.0, INR 0.9, APTT 24.7, D-Dimer Quant (PE/DVT) 0.47, Sodium 141, Potassium 3.6, Chloride 104, Carbon Dioxide 28.0, Anion Gap 9, BUN 14, Creatinine 1.13, Est GFR (MDRD) Af Amer 88, Est GFR (MDRD) Non-Af 72, BUN/Creatinine Ratio 12.4, Glucose 286 H, Calcium 9.8, B-Natriuretic Peptide 103.6 H 12/24/23 23:10: APTT 27.6 12/25/23 05:25: WBC 14.2 H, RBC 5.04, Hgb 15.1, Hct 44.0, MCV 87.3, MCH 30.0, MCHC 34.3, Plt Count 246, MPV 10.2, Immature Gran % (Auto) 0.600, Neut % (Auto) 75.1 H, Lymph % (Auto) 14.1 L, [place] % (Auto) 8.8, Eos % (Auto) 1.0, Baso % (Auto) 0.4, Absolute Neuts (auto) 10.6 H, Nucleated RBC % 0, APTT 28.1, Sodium 136, Potassium 3.4 L, Chloride 105, Carbon Dioxide 26.0, Anion Gap 5, BUN 12, Creatinine 0.87, Est GFR (MDRD) Af Amer 119, Est GFR (MDRD) Non-Af 98, BUN/Creatinine Ratio 13.8, Glucose 179 H, Calcium 8.7, Magnesium 1.8, Total Bilirubin 0.60, Triglycerides 181, Cholesterol 171, LDL Cholesterol 101, VLDL Cholesterol 36, HDL Cholesterol 34 L Rhythm: EKG: ECHO: Stress Test: Cardiac Cath: PCI: CT Surgery: Holter monitor: EPS: PPM: CXR: Chest CT Scan: Radiography Diagnostic Testing: Radiology Impression Chest X-Ray 12/24/23 12:50 IMPRESSION: Borderline cardiomegaly. The lungs are clear. Electronically Signed: Jin Woodall MD at 13:13 EST , Physical Exam Const oriented x3 HEENT normocephalic Eyes EOMs intact bilaterally Neck no JVD Chest inspection of chest normal Resp Auscultation: rhonchi throughout and wheezes Cardio regular rate, regular rhythm, S1 normal heart sound, S2 normal heart sound, no murmurs, no rub and no gallops Peripheral Pulses: radial pulses present right 2+ GI soft to palpation Extremity normal to inspection Skin no rashes or lesions noted Psych mental status grossly normal Assessment & Plan Assessment/Plan (1) Non-ST elevation CA (NSTEMI): PLAN: Patient's enzymes appear to peaked and leveled off at around 387. His BNP is 104. The patient's symptoms he claims are identical to what he had with his last stenting procedure. And they are occurring at rest. The EKG has not shown any significant ischemic changes but it is not normal at baseline. Given the patient's past medical history and his current symptoms I would recommend we proceed with left heart catheterization to definitively rule out progression of his coronary disease in this patient who continues to smoke is diabetic and severely hypertensive. (2) Hypertensive emergency: PLAN: Hypertensive emergency has resolved his blood pressure is much better controlled we will reinstitute his home medical regimen. I did discuss with him in great detail the mandatory nature that he not miss his clonidine in his home environment. He reports to be compliant with all of his medications. PLAN: Plan 1. 2D echocardiogram today for LV function. 2. Proceed with left heart catheterization to define his coronary anatomy. Charges/Coding Visit Charges Inpatient E&M: 80475 Subs Hosp L2
[2023-12-25] MEDS: 0.9% Normal Saline (1000mL) 1,000 ML 15 ML IV (08:25)
--- NOTE | 2023-12-25 09:10 | CASEMGMT ---
Insurance review for hospitals In-network with?[facility] [place] insurance if transfer is recommended is as follows:?[facility], [facility], [facility], [facility], [facility], [facility], [facility] ([facility]), [facility], [facility], and . Suly Reyes, Discharge Planning Asst.
--- NOTE | 2023-12-25 09:25 | CASEMGMT ---
VETO LUBIN Assessment Face to Face with patient for initial transition planning/care coordination assessment. VETO LUBIN introduced self and role at [facility], pt voices understanding. Pt is A&Ox4 and is resting comfortably in bed and is calm. Care providers, pharmacy, and demographics verified. Admitting dx: NSTEMI, HTN LACE Strata:3 PCP: Jamir Specialists: Song Flores Pharmacy: [facility] Insurance: MMO Prescription Benefit: Yes LNOK: Cassia Morrison (W) Living Arrangements: Pt states he lives with his and 16 y/o son in a single story home that is on top of a business/ building with 20-30 steps to enter with a handrail. Pt denies issues entering or exiting the home. ADLs/IADLs: Ind Transportation: Drives. Pt drives DME: Denies use or needs HHC/SNF: Denies history or needs Pt?s goal: DC home and get back to work Plan: Pt to undergo a heart catheter. DC mental health assistant notified and to make a tertiary list for potential transfer. Pt denies further needs at this time. Wu Fernando RN, CM
[2023-12-25 11:43] LABS: Bedside Glucose 164 mg/dL (74-106)
[2023-12-25 11:59] LABS: Partial Thromboplast Time 31.7 Seconds (24.1-36.2)
[2023-12-25 12:28] LABS: Hemoglobin A1c 7.3 % (3.8-5.6)
[2023-12-25] MEDS: HEPARIN/D5w 25,000 UNITS 25,000 UNITS/250 ML IV.SOLN. 14 UNITS CONT INF (12:33)
--- NOTE | 2023-12-25 15:18 | PCM.PN.HOSP ---
Reason for Visit Reason for Visit: Diagnoses Nicotine dependence, cigarettes, uncomplicated (12/24/23) Essential (primary) hypertension (12/24/23) Hypertensive urgency (12/24/23) Hypertensive emergency (12/24/23) Non-ST elevation (NSTEMI) myocardial infarction (12/24/23) Chronic ischemic heart disease, unspecified (12/24/23) Chronic obstructive pulmonary disease, unspecified (12/24/23) Other specified abnormalities of plasma proteins (12/24/23) Presence of coronary angioplasty implant and graft (12/24/23) Subjective Subjective Patient admitted yesterday afternoon for chest pain and suspected hypertensive emergency. Seen at bedside later this morning. Patient was sitting comfortably in bedside chair, conversing normally, in no acute distress. Patient was quite upset that his left heart cath had not been done yet, since he had been NPO since midnight. He denied any chest pain or shortness of breath this morning at rest or with exertion. No other acute concerns at this time. Objective Data Objective Data Vital Signs: Vital Signs Temp Pulse Resp BP Pulse Ox O2 Del Method 98 F 80 21 H 117/84 H 96 Room Air 12/25/23 12:00 12/25/23 12:00 12/25/23 12:00 12/25/23 12:00 12/25/23 12:00 12/25/23 12:15 Oxygen Delivery Method Room Air Weight: 102.92 kg Body Mass Index (BMI) 34.4 Intake & Output: Intake and Output for Last 24 Hours 12/23/23 12/24/23 12/25/23 23:59 23:59 23:59 Intake Total 114.28 / 623.28 1068.80 / 1068.80 Balance 114.28 / 623.28 1068.80 / 1068.80 Lab / Micro Data 12/25/23 05:25 12/25/23 05:25 Labs: Laboratory Results - last 24 hr 12/24/23 14:20: Troponin I High Sens 280 H* 12/24/23 17:13: POC Glucose 162 H 12/24/23 18:25: Troponin I High Sens 384 H* 12/24/23 20:38: POC Glucose 233 H 12/24/23 20:55: Troponin I High Sens 387 H* 12/24/23 23:10: APTT 27.6 12/25/23 05:25: WBC 14.2 H, RBC 5.04, Hgb 15.1, Hct 44.0, MCV 87.3, MCH 30.0, MCHC 34.3, RDW Std Deviation 43.6, RDW Coeff of Narcisa 13.5, Plt Count 246, MPV 10.2, Immature Gran % (Auto) 0.600, Neut % (Auto) 75.1 H, Lymph % (Auto) 14.1 L, Bibb % (Auto) 8.8, Eos % (Auto) 1.0, Baso % (Auto) 0.4, Absolute Neuts (auto) 10.6 H, Absolute Lymphs (auto) 2.00, Nucleated RBC % 0, APTT 28.1, Sodium 136, Potassium 3.4 L, Chloride 105, Carbon Dioxide 26.0, Anion Gap 5, BUN 12, Creatinine 0.87, Estim Creat Clear Calc 115.49, Est GFR (MDRD) Af Amer 119, Est GFR (MDRD) Non-Af 98, BUN/Creatinine Ratio 13.8, Glucose 179 H, Hemoglobin A1c 7.3 H, Calcium 8.7, Magnesium 1.8, Total Bilirubin 0.60, AST 14 L, ALT 34, Alkaline Phosphatase 108, Total Protein 7.0, Albumin 3.3, Globulin 3.7, Albumin/Globulin Ratio 0.9, Triglycerides 181, Cholesterol 171, LDL Cholesterol 101, VLDL Cholesterol 36, HDL Cholesterol 34 L, TSH 1.74 12/25/23 06:25: POC Glucose 196 H 12/25/23 11:25: POC Glucose 164 H 12/25/23 11:35: APTT 31.7 Radiography Diagnostic Testing: Radiology Impression Echocardiogram 12/24/23 16:16 Interpretation Summary The estimated ejection fraction is 50 %. Moderate concentric left ventricular hypertrophy. Compared to prior study, there is no significant change. Ordering Physician: Mary Lewis Referring Physician: BEKA MCKEON Performed By: Opal Taylor RDCS Rhythm Strip Rhythm Strip: Sinus Rhythm Physical Exam Const alert, oriented x3 and no apparent distress Constitutional Narrative: Middle aged male, obese, sitting comfortably in bedside chair, conversing normally, no acute distress. General Appearance: cooperative and comfortable HEENT normocephalic, head/scalp atraumatic, hearing grossly normal bilaterally, nasal mucous membranes and turbinates normal and moist oral mucous membranes Eyes PERRL, EOMs intact bilaterally and conjunctivae normal Neck full ROM, no lymphadenopathy and supple Lymph Lymphatic: no lymphadenopathy noted Chest inspection of chest normal Resp normal respiratory effort, normal air movement, no use of accessory muscles and clear to auscultation bilaterally Cardio regular rate, regular rhythm, no murmurs and peripheral pulses 2+ throughout GI normal to inspection, nondistended, normoactive bowel sounds, soft to palpation, non-tender and non-distended Back/Spine normal ROM Extremity normal to inspection, full ROM and no pedal edema Skin no rashes or lesions noted Neuro no focal motor deficits and no sensory deficits noted Speech: speech normal Psych mental status grossly normal Assessment & Plan Assessment/Plan (1) Non-ST elevation AK (NSTEMI): (2) Hypertensive emergency: PLAN: Plan Patient is a 53 year old male who presented to [facility] ED on 12/24/2023 with worsening chest pain. 1. NSTEMI, history of CAD with stenting x 7 Presented with chest pain and elevated troponins in setting of severe HTN. No ischemic changes on EKG. CXR nonacute. Initiated on heparin drip on admit given concern for NSTEMI. TTE 12/25 showed EF 50%, moderate concentric LV hypertrophy, stable from previous TTE. - Cardiology following. S/p left heart cath on 12/25 with 2 stents successfully placed (90% proximal LAD lesion, 80% proximal OM1 lesion). Plan is for aspirin indefinitely and Brilinta for at least 12 months. 2. Hypertensive emergency, improved Presented with BPs consistently 200s-210s/100s-120s. Symptoms on admit of chest pain, nausea/vomiting and mild shortness of breath. Cardiology contacted in ED, patient initiated on nitro drip and home medications restarted. - Cardiology following as above. BP normalized with nitro drip plus home meds, nitro drip discontinued on 12/25. Continue home nitrate, amlodipine, coreg, clonidine, lisinopril. Chronic medical conditions: - COPD: Not on home O2. Stable, no acute exacerbation. Continue home inhalers. - Obesity: BMI 34 on admit. Complicated hospital course, care and prognosis. - Type 2 diabetes mellitus: Home regimen of insulin degludec 50 units at night, Humalog 14 units 3 times daily with meals. Started on Lantus 25 units at night, 5 units with meals plus sliding scale on admission as patient was NPO. Will uptitrate regimen as needed. - Tobacco use: Encouraged cessation. Nicotine replacement therapy available as needed. DVT prophylaxis: Lovenox Code status: Full code, verified Expected disposition: Home, 1-2 days Total clinical time spent by myself addressing the patient's medical issues, reviewing all the data, and collaborating with patient's care team: 35 minutes. Charges/Coding Visit Charges Inpatient E&M: 32615 Subs Hosp L2
[2023-12-25] MEDS: 0.9% Normal Saline (1000mL) 1,000 ML 150 ML IV (16:13)
--- NOTE | 2023-12-25 16:13 | CL.I_ITS ---
Patient Name: LATONYA ELDER Study Date: 12/25/2023 Performing: Luis Villeda MD Ht: 68 inches 172.72 cm : 1970 Wt: 226.9 lbs 102.92 kg Age: 53 Gender: male BSA: 2.16 PROCEDURE(S) PERFORMED DC02-(02730)LHC/COR IC12-(92785/C9600)WAN W/WO PTCA, SINGLE CORONARY ARTERY IC12-(27436/C9600)WNA W/WO PTCA, SINGLE CORONARY ARTERY CLINICAL PROFILE AND CO-MORBIDITIES Indications: ACS > 24 hrs Heart Failure: None Angina Classification Anginal Classification w/in 2 Weeks: CCS IV CAD Presentations: Non-STEMI. Symptom onset Date/Time: Time Not Available CONCLUSIONS 90% Prox LAD 80% Prox OM1 Previously deployed stents to LAD, Diag, RCA and RPLV patent Successful WAN Prox LAD using [place] 3.0x12 mm, optimized proximally using 3.5 mm balloon Successful WAN Prox OM1 using Juan C [place] 2.5x18 mm, post-dilated using 3.0 mm balloon RECOMMENDATIONS ASA Indefinitley Brilinta for at least 12 months DESCRIPTION OF PROCEDURE The patient arrived to the procedure lab. The risks and benefits of the procedure as well as a full description of our services here and lack of surgical backup were fully explained to the patient and/or their significant other prior to the catheterization. The Timeout was completed, verifying the correct patient and procedure. The patient's procedural site was prepped and draped in the usual fashion. Local anesthetic was given subcutaneously to right radial region with Lidocaine 2%. Using a modified Seldinger technique, arterial access was obtained via the right radial artery, a 6Fr sheath was inserted.. Left Coronary Artery selective angiography was performed in multiple views using a 5 Fr. 4.0 [place] catheter. Right Coronary Artery selective angiography was then performed in multiple views using a 5 Fr. 4.0 [place] catheter. Left Coronary Artery selective angiography was performed in multiple views using a 5 Fr. JL4 catheterThe images were reviewed and options discussed. A decision was then made to proceed with an Intervention, IVUS or other adjunct procedure. XB 3.0 Guide catheter was inserted and engaged into the LCA. Runthrough Guide wire was advanced to the LAD. [place] 3.0 x 12 Drug Eluting stent was inserted. Drug Eluting stent was advanced across the lesion in the LAD, proximal. Angiogram performed post stent deployment. NC Emerge 3.0 x 8 Balloon catheter was inserted. Balloon catheter was advanced across lesion in the LAD, proximal. Angiogram performed post balloon dilatation. Angiogram performed post balloon dilatation. NC Emerge 3.5 x 8 Balloon catheter was inserted. Balloon catheter was advanced across lesion in the LAD, proximal. Angiogram performed pre balloon dilatation. Angiogram performed post balloon dilatation. Guide wire was repositioned to the 1st OM [place] 2.5 x 18 Drug Eluting stent was inserted. Drug Eluting stent was advanced across the lesion in the first obtuse marginal, proximal. Angiogram performed post stent deployment. NC Emerge 2.50 x 15 Balloon catheter was inserted. Balloon catheter was advanced across lesion in the first obtuse marginal, proximal. Angiogram performed pre balloon dilatation. NC Emerge 3.0 x 8 Balloon catheter was reinserted Balloon catheter was advanced across lesion in the first obtuse marginal, proximal. Runthrough (2) Guide wire was advanced to the Circumflex. Emerge 2.0 x 8 Balloon catheter was advanced across lesion in the first obtuse marginal, proximal. NC Emerge 3.0 x 8 Balloon catheter was reinserted NC Emerge 2.50 x 8 Balloon catheter was inserted. Balloon catheter was advanced across lesion in the first obtuse marginal, proximal. Nc Emerge 3.0 x 8 Balloon catheter was inserted. Balloon catheter was advanced across lesion in the first obtuse marginal, proximal. NC Euphora 3.0 x 8 Balloon catheter was inserted. Balloon catheter was advanced across lesion in the first obtuse marginal, proximal. Angiogram performed post balloon dilatation. Angiogram performed post balloon dilatation. Angiogram performed post balloon dilatation. The arterial sheath was pulled and a TR Band was applied for hemostasis CORONARY ANGIOGRAPHY DOMINANCE: Right Dominant LEFT ANTERIOR DESCENDING ARTERY: LAD: Tubular 80% Proximal lesion in LAD Tubular 50% Mid lesion in LAD OM 1: Tubular 80% Proximal lesion in MARG1 OM 2: Tubular 80% Proximal lesion in MARG1 RIGHT CORONARY ARTERY: RCA: Tubular 50% Mid lesion in RCA RT PDA: Tubular 50% Distal lesion in RT PDA INTERVENTION INFORMATION LESION SITE: LAD (Proximal) Lesion Complexity: Non-High/Non-C, lesion length: 10 mm, culprit lesion: Yes Pre Stenosis: 90 % Pre intervention ESTEPHANIA flow: 3 PROCEDURE: Drug Eluting Stent with post dilatation Post Stenosis: 0 % Post intervention ESTEPHANIA flow: 3 Lesion Devices: Cordis 6 Fr XB3.0 100cm Guide Catheter Terumo .014 180cm Runthrough Extra Floppy straight Medtronic 3.0 x 12 JUAN C FRONTIER WAN Reji Sci NC EMERGE MR 3.00x08 BALLOON Reji Sci NC EMERGE MR 3.50x08 BALLOON Terumo .014 180cm Runthrough Extra Floppy straight Reji Sci NC EMERGE MR 2.50x08 BALLOON LESION SITE: 1st OM (Proximal) Lesion Complexity: Non-High/Non-C, lesion length: 16 mm, culprit lesion: No Pre Stenosis: 80 % Pre intervention ESTEPHANIA flow: 3 Post Stenosis: 0 % Post intervention ESTEPHANIA flow: 3 Lesion Devices: Cordis 6 Fr XB3.0 100cm Guide Catheter Terumo .014 180cm Runthrough Extra Floppy straight Reji Sci NC EMERGE MR 3.00x08 BALLOON Medtronic 2.50 x 18 JUAN C FRONTIER WAN Reji Sci NC EMERGE MR 2.50x15 BALLOON Terumo .014 180cm Runthrough Extra Floppy straight Reji Sci EMERGE MR 2.00x08 BALLOON Reji Sci NC EMERGE MR 3.00x08 BALLOON Medtronic NC EUPHORA RX 3.0x08 BALLOON COMPLICATIONS No Complications PROCEDURE MEDICATIONS Versed 1 mg IV Fentanyl 50 mcg IV Oxygen: 2 L/min via nasal cannula Brilinta 180 mg PO @ 12/25/2023 15:37:37 Heparin given IA 12/25/2023 14:23:50 Heparin 7000 unit(s) IV 12/25/2023 14:38:35 Heparin 2000 unit(s) IV 12/25/2023 15:02:05 Heparin 4000 unit(s) IV 12/25/2023 15:45:09 Nitro 200 mcg IC 12/25/2023 15:33:45 Verapamil 2.5mg, Ntg 200mcgs, 2000 units of Heparin given IA 12/25/2023 14:23:50 IV Bolus: .9 NaCl 250 ml total 12/25/2023 14:17:24 SUMMARY OF HEMODYNAMIC DATA Time AIR REST ECG 14:05:14 AO 133/89 (108) SA 14:25:49 AIR REST 16:01:41 Signed By Luis Villeda MD On 12/25/2023 16:12:28 Luis Villeda MD
[2023-12-25] MEDS: Albuterol 2.5 MG/3 ML VIAL.NEB. INHALATION ×2 (16:22→18:44)
[2023-12-25 17:20] LABS: Bedside Glucose 128 mg/dL (74-106)
[2023-12-25] MEDS: Furosemide 20 MG/2 ML VIAL IV (18:06)
[2023-12-25] MEDS: LORazepam 2 MG/ML Syringe 0.5 MG IV (18:27)
--- NOTE | 2023-12-25 19:05 | RAD_ITS ---
STUDY: X-RAY CHEST REASON FOR EXAM: Male, 53 years old. sob TECHNIQUE: Single frontal view of the chest. COMPARISON: December 24, 2023 FINDINGS: Cervical hardware. The lungs are clear and expanded. There is no demonstrated pleural abnormality. Normal size heart. Normal mediastinum and soniya. Normal visualized pulmonary arteries. Normal visualized aortic arch and descending thoracic aorta. Normal visualized thoracic spine. Normal visualized ribs, clavicles, and shoulders. There is no demonstrated abnormality of the visualized soft tissue structures of the upper abdomen. RAD/Chest 1 View (Portable) IMPRESSION: Normal x-ray examination of the chest. Electronically Signed: Guilherme Flores MD at 20:19 EST ,
[2023-12-25] MEDS: Insulin Lispro 100 UNIT/ML INSULN.PEN SC (21:15)
[2023-12-25] MEDS: Insulin Glargine-YFGN 100 UNIT/ML Pen 25 UNIT SC (21:15)
[2023-12-25] MEDS: Atorvastatin Calcium 80 MG Tablet PO (21:17)
[2023-12-25] MEDS: TICAGRELOR 90 MG TABLET PO (21:26)
[2023-12-25 21:40] LABS: Bedside Glucose 177 mg/dL (74-106)
[2023-12-26 01:21] LABS: GGTP 24 U/L (15-85)
[2023-12-26 02:00] VITALS: BP 149/85; PULSE 83; RESP 20; TEMP 36.7; O2SAT 96
[2023-12-26 02:05] VITALS: O2SAT 96
[2023-12-26 02:30] VITALS: PULSE 81; RESP 18
[2023-12-26] MEDS: Albuterol 2.5 MG/3 ML VIAL.NEB. INHALATION ×2 (02:30→05:31)
[2023-12-26 05:31] VITALS: PULSE 82; RESP 18
[2023-12-26 06:25] LABS: Bedside Glucose 86 mg/dL (74-106)
[2023-12-26 07:35] VITALS: O2SAT 96
[2023-12-26 08:00] VITALS: BP 181/74; PULSE 80; RESP 14; TEMP 36.9; O2SAT 96
--- NOTE | 2023-12-26 08:13 | CRPHASE1 ---
Patient Communication Patient Information Former Patient:: Phase I PHII Cardiac Rehab Discussed with Patient:: Yes Guide to Cardiac Rehab Given to Patient:: Yes Cardiac Rehab Facility Choice List Given to Patient:: Yes Communication to Cardiac Rehab Choice Program [facility] CR PHII:: Communication Given to CR Survey And Mapping Technician:: Luis Villeda Phase II Cardiac Rehab:: Yes Sessions:: 36 sessions - 3 days/wk, 12 weeks Cardiac Rehabilitation Info Program Information Cardiac Rehabilitation Program Information: Cardiac Rehab The cardiac rehab team at [facility] consists of highly skilled exercise physiologists, nurses, respiratory therapists and physicians working together with you. Our purpose is to help you have a full recovery and achieve the goals you set for yourself. Over the years many of our patients have returned to activities they assumed they would never do again! We can help restore your confidence and motivation to make lifestyle changes that can have a significant impact on your health and quality of life! We can help answer questions and concerns you may have about exercise, lifestyle, medications, diet, stress and anxiety which are common following a hospitalization. WE monitor ECG and vital signs during exercise and discuss your progress with you and report to your physician(s). Cardiac Rehab is proven to help reduce readmissions, improve functional capacity and lower recurrence of problems with your heart. Our Cardiac Rehab program is Certified by the [place] [employer] Pulmonary [employer] (AACVPR) and Accredited by the [employer] through our [facility]. You can contact us at . We invite you to call us with your questions or to get started in our program. If you have other questions or concerns be sure to ask your physician/provider during your follow-up visit. WE look forward to seeing you!
--- NOTE | 2023-12-26 08:14 | CRPH1.INST_ITS ---
General Education Discussed with Patient CAD and cardiac anatomy and function:: Patient communicates acknowledgment Explanation of diagnoses and procedures:: Patient communicates acknowledgment Sign/Symptoms of MT:: Patient communicates acknowledgment Antiplatelet therapy: Patient communicates acknowledgment Proper use of NTG-SL: Patient communicates acknowledgment Emergency procedures and activation of EMS: Patient communicates acknowledgment Compliance of all prescribed medications: Patient communicates acknowledgment Smoking Risk Factors Patient Nicotine/Smoking Risk Factors Are:: Cigarettes Recommendations Recommendations Include:: Smoking cessation strategies/Smoking packet and Participation in a smoking cessation program Response Code Nicotine/Smoking Response Code:: Patient communicates acknowledgment Dyslipidemia Risk Factors Patient Dyslipidemia Risk Factors Are:: Total Cholesterol, Triglycerides, HDL and LDL Recommendations Recommendations Include:: Lipid profile provided, Reviewed NCEP/ATP guidelines and Therapeutic Lifestyle Change dietary guidelines Response Code Dyslipidemia Response Code:: Patient communicates acknowledgment Overweight/Obesity Risk Factors Patient Overweight/Obesity Risk Factors Are:: Obesity - > or = 30 Recommendations Recommendations Include:: Weight loss of 5-10%, Reduced calorie diet and Exercise 5-7 times/week Response Code Overweight/Obesity:: Patient communicates acknowledgment Hypertension Recommendations Recommendations Include:: BP <130/80 if diabetic, DASH dietary guidelines, Decrease/maintain normal body weight and Moderation of ETOH Response Code Hypertension:: Patient communicates acknowledgment Heart Disease Risk Factors Patient Heart Disease Risk Factors Are:: Previous cardiac event Response Code Heart Disease Response Code:: Patient communicates acknowledgment Diabetes Risk Factors Patient Diabetes Risk Factors Are:: Elevated blood sugars and Post-op hypergly cemia Recommendations Recommendations Include:: Maintain fasting blood sugars 70-110 md/dL, Maintain HgbA1c of 6% or less, Monitor blood sugar as prescribed, Diabetic dietary guidelines and Decrease/maintain body weight Response Code Diabetes:: Patient communicates acknowledgment Metabolic Syndrome Risk Factors Patient Metabolic Syndrome Risk Factors Are [3 of 5]:: Fasting blood sugar > 100 mg/dL, Waist circumference > 35 [female] or 40 [male], High triglyceride >150, Hypertension and Low HDL <40 [male] or < 50 [female] Recommendations Recommendations Include:: Reinforce compliance to risk factor modifications, Patient is diabetic and Encouraged follow-up with Primary Care Physician Response Code Metabolic Syndrome Response Code:: Patient communicates acknowledgment Sedentary Risk Factors Patient Sedentary Risk Factors Are:: Lack of regular exercise Recommendations Recommendations Include:: Aerobic exercise 5-7 times/week for 20-30 minutes continuously, Benefits of regular exercise, Discussed home walking program and Monitored Outpatient Cardiac Rehab Response Code Sedentary Response Code:: Patient communicates acknowledgment Stress Risk Factors Patient Stress Risk Factors Are:: Patient denies stress as a risk factor Recommendations Recommendations Include:: Identification of stressors, and assessment of coping skills and Stress management techniques Response Code Stress Response Code:: Patient communicates acknowledgment
[2023-12-26 08:24] LABS: Hematocrit 44.8 % (40-54); Mean Corp Hgb Conc 33.5 g/dL (32-36); Mean Corpuscular Hgb 29.5 pg (27.0-32.0); Mean Platelet Vol. 10.6 fl (6.2-12.0); Platelet Count 235 K/mm3 (150-450); RBC Distribution Width CV 13.6 % (11.6-14.6); RBC Distribution Width SD 43.9 fl (35.1-43.9); Red Blood Count 5.09 M/mm3 (4.6-6.2); White Blood Count 11.5 K/mm3 (4.4-11.0)
[2023-12-26] MEDS: TICAGRELOR 90 MG TABLET PO (08:33)
[2023-12-26] MEDS: Lisinopril 20 MG Tablet PO (08:34)
[2023-12-26] MEDS: amLODIPine 10 MG Tablet PO (08:34)
[2023-12-26] MEDS: Aspirin E.C. 81 MG Tablet PO (08:34)
[2023-12-26] MEDS: Carvedilol 25 MG Tablet PO (08:34)
[2023-12-26] MEDS: Isosorbide Mononitrate 60 MG Tablet PO (08:34)
[2023-12-26] MEDS: cloNIDine HCl 0.1 MG Tablet 0.100000000000000006 MG PO (08:36)
--- NOTE | 2023-12-26 09:20 | DCINST_ITS ---
Discharge Instructions Diet Discharge Diet: Carb Control Diet Activity Discharge Activity: No Restrictions Weight Bearing Status: Full weight bearing Follow Up Care Test Results: Test results from this visit will be discussed in further detail at your follow- up appointment, if applicable. Discharge Plan Admission Admit Date/Time: 12/24/23 15:04 Primary Reason for Your Visit: chest pain Attending Provider: Maldonado Whitt Primary Care Provider: Sivan Bowie Consulting Providers: Harvey Murphy; Mary Lewis Instructions Additional Instructions / Restrictions: Take Plavix for prevention of clotting of your new heart stents. Continue all other home meds as normal. Follow up with your PCP and Cardiology in the office. Discharge Orders/Prescriptions Prescriptions: New clopidogrel [Plavix] 75 mg tablet 75 mg PO DAILY Qty: 90 0RF Continued albuterol sulfate 90 mcg/actuation HFA aerosol inhaler 2 puff INHALATION 4X/DAY PRN (Reason: Shortness Of Breath) Patient Comments: inhale 2 puffs INTO THE LUNGS UP TO FOUR TIMES A DAY NEEDED atorvastatin 80 mg tablet 80 mg PO QHS aspirin 81 MG tablet,chewable 81 mg PO DAILY loratadine 10 mg tablet 10 mg PO DAILY PRN (Reason: allergies) insulin degludec [Tresiba FlexTouch U-200] 200 unit/mL (3 mL) insulin pen 50 unit SUBCUT QHS Patient Comments: inject 50 units subcutaneously at bedtime for diabetes isosorbide mononitrate 60 mg tablet extended release 24 hr 60 mg PO DAILY Patient Comments: Patient states he only takes once a day nitroglycerin 0.4 mg tablet, sublingual 0.4 mg sublingual Q5M Rx Instructions: PLACE 1 TABLET UNDER TONGUE FOR CHEST PAIN. CALL 911 IF NO IMPROVEMENT AFTER 5 MIN. REPEAT DOSE TWICE IF NEEDED Humalog KwikPen Insulin 200 unit/mL (3 mL) insulin pen 14 unit subcut TIDCM Rx Instructions: inject 14 units subcutaneously three times a day (SEE PROTOCOL) carvedilol 25 mg tablet 25 mg PO BIDCM Qty: 180 3RF clonidine HCl 0.1 mg tablet 0.1 mg PO BID Qty: 180 3RF amlodipine 10 mg tablet 10 mg PO DAILY Qty: 90 3RF lisinopril 20 mg tablet 20 mg PO BID Qty: 180 3RF ranolazine 1,000 mg tablet extended release 12 hr 1,000 mg PO BID Qty: 180 3RF Discontinued clopidogrel 75 mg tablet 75 mg PO DAILY Rx Instructions: take 1 tablet by mouth once daily Referrals / Follow Up: Sivan Bowie MD [Primary Care Provider] - Disposition Disposition (needs filled in before D/C Order can be placed): Home, Self Care
--- NOTE | 2023-12-26 09:23 | PCM.DC.SUM ---
Providers Date of Admission: 12/24/23 Date of Discharge: 12/26/23 Primary Care Physician: Dr. Beka Mckeon MD Consultations 12/24/23 16:16 Consult: Cardiology Routine Consulting Provider: Harvey Murphy Reason for Consult: Chest Pain EMERGENT Consult: No MD Notified: Yes Date Notified: 12/24/23 Time Notified: 15:12 Method of Notification: ED Physician Initiated Reason For Visit: NSTEMI, HYPERTENSIVE EMERGENCY Diagnosis Discharge Diagnosis (1) Non-ST elevation GA (NSTEMI): Status: Acute Code(s): I21.4 - Non-ST elevation (NSTEMI) myocardial infarction (2) Hypertensive emergency: Status: Acute Code(s): I16.1 - Hypertensive emergency Medications at Discharge Home Medications albuterol sulfate 90 mcg/actuation aerosol inhaler 2 puff inhalation 4X/DAY PRN Shortness Of Breath 04/27/22 aspirin 81 mg chewable tablet 81 mg PO DAILY [facility] 04/27/22 atorvastatin 80 mg tablet 80 mg PO QHS cholesterol 04/27/22 loratadine 10 mg tablet 10 mg PO DAILY PRN allergies 06/26/22 carvedilol 25 mg tablet 25 mg PO BIDCM [facility] #180 tabs 04/24/23 clonidine HCl 0.1 mg tablet 0.1 mg PO BID blood pressure #180 tabs 04/24/23 amlodipine 10 mg tablet 10 mg PO DAILY blood pressure #90 tabs 06/25/23 insulin degludec 200 unit/mL (3 mL) subcutaneous pen (Tresiba FlexTouch U-200 insulin) 50 unit subcut QHS blood sugar 11/21/23 lisinopril 20 mg tablet 20 mg PO BID blood pressure #180 tabs 11/26/23 ranolazine 1,000 mg tablet,extended release,12 hr 1,000 mg PO BID heart #180 tabs 12/18/23 insulin lispro 200 unit/mL (3 mL) subcutaneous pen (Humalog KwikPen U-200 Insulin) 14 unit subcut TIDCM glucose 12/24/23 isosorbide mononitrate 60 mg tablet,extended release 24 hr 60 mg PO DAILY heart 12/24/23 nitroglycerin 0.4 mg sublingual tablet 0.4 mg sublingual Q5M chest pain 12/24/23 clopidogrel 75 mg tablet (Plavix) 75 mg PO DAILY #90 tabs 12/26/23 Hospital Course Operations None Procedures Cardiac catheterization, EKG, Transthoracic echo and - (Chest x-ray x 2) Summary of Care Provided Minutes Spent on Discharge: 35 Hospital Course: Patient is a 53 year old male who presented to [facility] ED on 12/24/2023 with worsening chest pain. Hospital course as noted below. Patient discharged home in stable condition on 12/26. 1. NSTEMI, history of CAD with stenting x 7 Presented with chest pain and elevated troponins in setting of severe HTN. No ischemic changes on EKG. CXR nonacute. Initiated on heparin drip on admit given concern for NSTEMI. TTE 12/25 showed EF 50%, moderate concentric LV hypertrophy, stable from previous TTE. - Cardiology followed. S/p left heart cath on 12/25 with 2 stents successfully placed (90% proximal LAD lesion, 80% proximal OM1 lesion). Had shortness of breath after starting Brilinta while inpatient, reloaded with Plavix per cardiology recommendations and discharged home on aspirin 81 mg daily and Plavix 85 mg daily. 2. Hypertensive emergency, resolved Presented with BPs consistently 200s-210s/100s-120s. Symptoms on admit of chest pain, nausea/vomiting and mild shortness of breath. Cardiology contacted in ED, patient initiated on nitro drip and home medications restarted. - Cardiology followed as above. BP normalized with nitro drip plus home meds, nitro drip discontinued on 12/25. Continue home nitrate, amlodipine, coreg, clonidine, lisinopril on discharge. Chronic medical conditions: - COPD: Not on home O2. Stable, no acute exacerbation. Continue home inhalers. - Obesity: BMI 34 on admit. Complicated hospital course, care and prognosis. - Type 2 diabetes mellitus: Home regimen of insulin degludec 50 units at night, Humalog 14 units 3 times daily with meals. On reduced doses while inpatient, okay to restart home dosing on discharge. - Tobacco use: Encouraged cessation. Denied need for nicotine replacement therapy while inpatient. Total clinical time spent by myself addressing the patient's discharge needs: 35 minutes. Physical Exam Const alert, oriented x3 and no apparent distress Constitutional Narrative: Middle aged male, obese, sitting comfortably in bedside chair, conversing normally, no acute distress. General Appearance: cooperative and comfortable HEENT normocephalic, head/scalp atraumatic, hearing grossly normal bilaterally, nasal mucous membranes and turbinates normal and moist oral mucous membranes Eyes PERRL, EOMs intact bilaterally and conjunctivae normal Neck full ROM, no lymphadenopathy and supple Lymph Lymphatic: no lymphadenopathy noted Chest inspection of chest normal Resp normal respiratory effort, normal air movement, no use of accessory muscles and clear to auscultation bilaterally Cardio regular rate, regular rhythm, no murmurs and peripheral pulses 2+ throughout GI normal to inspection, nondistended, normoactive bowel sounds, soft to palpation, non-tender and non-distended Back/Spine normal ROM Extremity normal to inspection, full ROM and no pedal edema Skin no rashes or lesions noted Neuro no focal motor deficits and no sensory deficits noted Speech: speech normal Psych mental status grossly normal Weight / BMI Weight Weight: 102.92 kg Body Mass Index (BMI) 34.4 ABG / Lab / Microbiology Data 12/26/23 07:35 12/26/23 07:35 Laboratory: Laboratory Results - last 24 hr 12/25/23 05:25: Hemoglobin A1c 7.3 H, GGT 24 12/25/23 11:25: POC Glucose 164 H 12/25/23 11:35: APTT 31.7 12/25/23 16:28: POC Glucose 128 H 12/25/23 21:14: POC Glucose 177 H 12/26/23 06:07: POC Glucose 86 12/26/23 07:35: WBC 11.5 H, RBC 5.09, Hgb 15.0, Hct 44.8, MCV 88.0, MCH 29.5, MCHC 33.5, RDW Std Deviation 43.9, RDW Coeff of Narcisa 13.6, Plt Count 235, MPV 10.6 Radiography Diagnostic Testing: Radiology Impression Echocardiogram 12/24/23 16:16 Interpretation Summary The estimated ejection fraction is 50 %. Moderate concentric left ventricular hypertrophy. Compared to prior study, there is no significant change. Ordering Physician: Mary Lewis Referring Physician: BEKA MCKEON Performed By: Opal Taylor RDCS Chest X-Ray 12/25/23 19:05 IMPRESSION: Normal x-ray examination of the chest. Electronically Signed: Guilherme Flores MD at 20:19 EST , D/C Instructions Discharge Diet: Carb Control Diet Weight Bearing Status: Full weight bearing Meaningful Use Info Meaningful Use Diagnoses (Choose all that apply): AMI AMI/Post PCI/Angioplasty Aspirin given w/in 24hrs of arrival?: Yes ASA at discharge?: Yes Statins at discharge?: Yes Michael/ARB at discharge?: Yes [place] at discharge?: Yes Done w/ Acute GA measure.: Yes Discharge Plan Admission Admit Date/Time: 12/24/23 15:04 Primary Reason for Your Visit: chest pain Attending Provider: Maldonado Whitt Primary Care Provider: Beka Mckeon Consulting Providers: Harvey Murphy; Mary Lewis Instructions Additional Instructions / Restrictions: Take Plavix for prevention of clotting of your new heart stents. Continue all other home meds as normal. Follow up with your PCP and Cardiology in the office. Discharge Orders/Prescriptions Prescriptions: New clopidogrel [Plavix] 75 mg tablet 75 mg PO DAILY Qty: 90 0RF Continued albuterol sulfate 90 mcg/actuation HFA aerosol inhaler 2 puff INHALATION 4X/DAY PRN (Reason: Shortness Of Breath) Patient Comments: inhale 2 puffs INTO THE LUNGS UP TO FOUR TIMES A DAY NEEDED atorvastatin 80 mg tablet 80 mg PO QHS aspirin 81 MG tablet,chewable 81 mg PO DAILY loratadine 10 mg tablet 10 mg PO DAILY PRN (Reason: allergies) insulin degludec [Tresiba FlexTouch U-200] 200 unit/mL (3 mL) insulin pen 50 unit SUBCUT QHS Patient Comments: inject 50 units subcutaneously at bedtime for diabetes isosorbide mononitrate 60 mg tablet extended release 24 hr 60 mg PO DAILY Patient Comments: Patient states he only takes once a day nitroglycerin 0.4 mg tablet, sublingual 0.4 mg sublingual Q5M Rx Instructions: PLACE 1 TABLET UNDER TONGUE FOR CHEST PAIN. CALL 911 IF NO IMPROVEMENT AFTER 5 MIN. REPEAT DOSE TWICE IF NEEDED Humalog KwikPen Insulin 200 unit/mL (3 mL) insulin pen 14 unit subcut TIDCM Rx Instructions: inject 14 units subcutaneously three times a day (SEE PROTOCOL) carvedilol 25 mg tablet 25 mg PO BIDCM Qty: 180 3RF clonidine HCl 0.1 mg tablet 0.1 mg PO BID Qty: 180 3RF amlodipine 10 mg tablet 10 mg PO DAILY Qty: 90 3RF lisinopril 20 mg tablet 20 mg PO BID Qty: 180 3RF ranolazine 1,000 mg tablet extended release 12 hr 1,000 mg PO BID Qty: 180 3RF Discontinued clopidogrel 75 mg tablet 75 mg PO DAILY Rx Instructions: take 1 tablet by mouth once daily Referrals / Follow Up: Beka Mckeon MD [Primary Care Provider] - 12/28/23 11:15 am Disposition Disposition (needs filled in before D/C Order can be placed): Home, Self Care Charges/Coding Visit Charges Inpatient E&M: 73754 Disch Hosp >30min
--- NOTE | 2023-12-26 09:23 | PCM.PN.CARD ---
Subjective Subjective The patient is sitting up the side of his bed today complaining of shortness of breath. He notes that he has been wheezing and had episodes of shortness of breath overnight. He was treated with multiple aerosol therapies. He also received IV Lasix as he had been given significant fluid overnight. He was also assessed for possible alcohol withdrawal which was not found to be the case. The patient denies any chest pain that was similar to anything like brought him to the hospital. His EKG did not show any acute ischemic changes done during the episode last evening. A chest x-ray done last evening did not show any consolidation or any abnormality in the lung moore. Objective Data Vital Signs: Vital Signs Temp Pulse Resp BP Pulse Ox O2 Del Method O2 Flow Rate 98.5 F 80 14 181/74 H 96 Room Air 2 12/26/23 08:00 12/26/23 08:00 12/26/23 08:00 12/26/23 08:00 12/26/23 08:00 12/26/23 08:00 12/26/23 07:35 Oxygen Flow Rate (L/min) 2 Oxygen Delivery Method Room Air Weight: 226 lb 14.4 oz Body Mass Index (BMI) 34.4 Intake & Output: Intake and Output for Last 24 Hours 12/24/23 12/25/23 12/26/23 23:59 23:59 23:59 Intake Total 114.28 / 623.28 / Balance 114.28 / 623.28 / Lab / Micro Data Attestation: I reviewed the patient's lab results. 12/26/23 07:35 12/25/23 05:25 Labs: Laboratory Results - last 24 hr 12/25/23 05:25: Hemoglobin A1c 7.3 H, GGT 24 12/25/23 11:25: POC Glucose 164 H 12/25/23 11:35: APTT 31.7 12/25/23 16:28: POC Glucose 128 H 12/25/23 21:14: POC Glucose 177 H 12/26/23 06:07: POC Glucose 86 12/26/23 07:35: WBC 11.5 H, RBC 5.09, Hgb 15.0, Hct 44.8, MCV 88.0, MCH 29.5, MCHC 33.5, RDW Std Deviation 43.9, RDW Coeff of Narcisa 13.6, Plt Count 235, MPV 10.6 Rhythm Strip Rhythm Strip: Sinus Rhythm Rate: 80 Cardiology Labs/Tests 12/25/23 05:25: Hemoglobin A1c 7.3 H 12/25/23 11:35: APTT 31.7 12/26/23 07:35: WBC 11.5 H, RBC 5.09, Hgb 15.0, Hct 44.8, MCV 88.0, MCH 29.5, MCHC 33.5, Plt Count 235, MPV 10.6 Rhythm: EKG: ECHO: Stress Test: Cardiac Cath: PCI: CT Surgery: Holter monitor: EPS: PPM: CXR: Chest CT Scan: Radiography Diagnostic Testing: Radiology Impression Echocardiogram 12/24/23 16:16 Interpretation Summary The estimated ejection fraction is 50 %. Moderate concentric left ventricular hypertrophy. Compared to prior study, there is no significant change. Ordering Physician: Mary Lewis Referring Physician: BEKA MCKEON Performed By: Opal Taylor RDCS Chest X-Ray 12/25/23 19:05 IMPRESSION: Normal x-ray examination of the chest. Electronically Signed: Guilherme Flores MD at 20:19 EST , Physical Exam Const Constitutional Narrative: Patient is resting seated on the side of the bed complaining of difficulty breathing. HEENT normocephalic Eyes EOMs intact bilaterally Neck no JVD Chest inspection of chest normal Resp normal respiratory effort Auscultation: rhonchi left lower and wheezes expiratory wheezes and throughout Cardio regular rate, regular rhythm, S1 normal heart sound, S2 normal heart sound, no murmurs, no rub and no gallops GI soft to palpation Extremity no pedal edema Extremity Narrative: Right wrist is intact with no evidence of bleeding. Bandage remains in place. Skin no rashes or lesions noted Neuro Neuro Narrative: Alert and oriented x 3. Psych mental status grossly normal Assessment & Plan Assessment/Plan (1) Hypertensive emergency: PLAN: The patient's blood pressure is still somewhat elevated. But chronically it appears in his home environment he runs in the 160 systolic range. The patient should be discharged to home on his home medical regiment. He will be reevaluated in the office in 2 to 3 weeks. He was given a card to call for office visit. (2) Non-ST elevation PR (NSTEMI): PLAN: The patient underwent stenting of the OM circumflex and proximal LAD with resolution of his chest symptoms. The patient does complain of wheezing and shortness of breath he has an appointment with his lung specialist today. He has been minimally responsive to aerosol therapies overnight. His O2 saturation is 96% on room air. PLAN: Plan 1. Continue the patient's home medical regimen. 2. The Plavix should be changed to Brilinta he should be discharged on Brilinta 90 mg twice daily. This should be maintained for at least 6 weeks and then if necessary can be switched back to his chronic Plavix. 3. Right cardiovascular standpoint the patient can be discharged home. Charges/Coding Visit Charges Inpatient E&M: 41204 Subs Hosp L2
[2023-12-26 10:20] LABS: Alcohol, Blood (Medical)-Serum < 3.0 mg/dL
[2023-12-26 10:24] LABS: AST(SGOT) 16 U/L (15-37); Alanine Aminotransfer ALT/SGPT 33 U/L (16-61); Albumin, Serum 3.5 g/dL (3.2-5.0); Alkaline Phosphatase 107 U/L (45-117); Anion Gap 8 (5-15); BUN 12 mg/dL (7-18); BUN/Creat Ratio 14.5 RATIO (10-20); Calcium,Total 9.4 mg/dL (8.5-10.1); Chloride 107 mmol/L (98-107); Cholesterol 178 mg/dL (200); Creatinine, Serum 0.83 mg/dL (0.70-1.30); EST Glomerular Filtration Rate 103 mL/min (>60); Est Glom Filt Rate - Afr Amer 125 mL/min (>60); Estimated Creatinine Clearance 121.06 ml/min; Globulin 3.4 g/dL (2.2-4.2); Glucose 76 mg/dL (74-106); High Density Lipoprotein 39 mg/dL; Potassium 3.5 mmol/L (3.5-5.1); Protein, Total 6.9 g/dL (6.4-8.2); Sodium Level 138 mmol/L (136-145); Triglycerides 140 mg/dL; Very Low Density Lipoprotein 28 mg/dL (5-40)
--- NOTE | 2023-12-26 10:26 | CASEMGMT ---
[facility] pharmacy states the Brilinta will cost 34$ for the pt after insurance. Pt updated and is OK with this. Pt states that he is a diabetic and that he has enough supplies at home to check his BS. Pt denies further needs.
--- NOTE | 2023-12-26 10:31 | NURSING ---
Refusing to wear telemetry at this time. states I am being discharged today
[2023-12-26 10:32] LABS: D-Dimer Quantitative (DVT/PE) < 0.27 FEU/ug/m (0.27-0.49)
[2023-12-26] MEDS: Clopidogrel Bisulfate 300 MG Tablet PO (11:25)
[2023-12-26 20:51] LABS: ACT Activated Clotting Time 228 sec (74-137)
[2024-01-25 16:26] LABS: ACT Activated Clotting Time 228 sec (74-137)
== END 2023-12-26 11:34 | disposition home or self-care (01) | DRG 322 ==
LOC: ED 14:52 → PCU 15:21
PROVIDERS: Internal Medicine; Internal Medicine Cardiovascular Disease; Admitting Provider Internal Medicine; Emergency Provider Emergency Medicine; PCP Internal Medicine; Visit Provider Hospitalist
DX: I21.4 Non-ST elevation (NSTEMI) myocardial infarction (principal); I16.1 Hypertensive emergency; E11.9 Type 2 diabetes mellitus without complications; J44.9 Chronic obstructive pulmonary disease, unspecified; I24.9 Acute ischemic heart disease, unspecified; Z79.4 Long term (current) use of insulin; I10 Essential (primary) hypertension; I16.0 Hypertensive urgency; I25.10 Atherosclerotic heart disease of native coronary artery without angina pectoris; E78.5 Hyperlipidemia, unspecified; I25.5 Ischemic cardiomyopathy; F17.210 Nicotine dependence, cigarettes, uncomplicated; I25.2 Old myocardial infarction; E66.9 Obesity, unspecified; Z79.82 Long term (current) use of aspirin; Z82.3 Family history of stroke; Z95.5 Presence of coronary angioplasty implant and graft; Z68.34 Body mass index [BMI] 34.0-34.9, adult
CPT/HCPCS: 36415; 71045; 80048; 80053; 80061; 80320; 82962; 82977; 83036; 83735; 83880; 84443; 84484; 85025; 85027; 85347; 85379; 85610; 85730; 92928; 93005; 93306; 93454; 94640; 94762; 99152; 99153; 99285; 99406; J7030; Q9967; A4216; C1725; C1769; C1874; C1887; C1894; C9600; G0480; J1940

== ENCOUNTER → 2023-12-31 | Outpatient (CLI) | payer OTHER, SELFPAY ==
[2021-06-01 14:28] VITALS: BMI 35.6
--- OUTSIDE RECORDS SUMMARY | 2023-12-31 11:09 | XMS RPT_ITS | CCD ---
Author Name Unknown Address [address] [place] [address] Organization [facility] Care Team Providers Care Gas Meter Mechanic Name Role Phone MD Sandra, Eric S Unavailable Roof STEEL CHECKER, Hesham Sharma Unavailable Valeriano Weir Unavailable Unavailable MD Flores Cyril S Unavailable Valeriano Weir Unavailable Unavailable VETO Liang, Crista Duran Unavailable Unavailabl e Allergies Allergy Classification Reported Allergen(s) Allergy Type Date of Onset Reaction(s) Facility (18 sources) amoxicillin drug allergy 12-22-2016 severe rash, [facility]own [facility] Work Phone: [phone] (9 sources) amoxicillin / clavulanate drug allergy 12-27-2016 severe rash [facility] Work Phone: [phone] (18 sources) codeine drug allergy 12-22-2016 projectile vomiting, unknown [facility] Work Phone: [phone] Medications Completed/Discontinued Medications Medication Drug Class(es) Dates Sig (Normalized) Sig (Original) amLODIPine 10 mg oral tablet (20 sources) Dihydropyridine Calcium [place] Start: 07-11-2017 take 1 tablet by mouth once daily AMLODIPINE BESYLATE 10 MG TABS One tablet by mouth daily AMLODIPINE BESYLATE [id number] Hesham Canchola NP Problems Active Problems Problem [...] disease (17 sources) Atherosclerotic heart disease of [place] coronary artery without angina pectoris; Translations: [Coronary [...] Mass Index) 31.81 kg/m2 MD [facility] Work Phone: 07-17-2017 10:05-0400 BP Diastolic [...] BMI (Body Mass Index) 34.39 kg/m2 [facility] Work Phone: 02-06-2017 14:17-0400 Body weight 102.6 kg Harumi DeFinis [facility] Work Phone: 02-06-2017 14:17-0400 BP Diastolic 90 mm[Hg] Harumi DeFinis [facility] Work Phone: 02-06-2017 14:17-0400 BP Systolic 140 mm[Hg] Harumi DeFinGreenDust [facility] Work Phone: 02-06-2017 14:17-0400 Height 172.72 cm Harumi DeFinis [facility] Work Phone: 02-06-2017 14:17-0400 Pulse (Heart Rate) 88 /min Harumi DeFinGreenDust [facility] Work Phone: 02-06-2017 14:17-0400 Pulse Oximetry 98 % Harumi DeFinGreenDust [facility] Work Phone: 02-06-2017 14:17-0400 Respiratory Rate 24 /min Harumi DeFinis [facility] Work Phone: 02-06-2017 14:17-0400 Weight 102.6 kg Eric Flores MD [facility] Work Phone: 12-27-2016 09:070500 BSA (Body Surface Area) 2.12 m2 [facility] [employer] [facility] Work Phone: Procedures Date Procedure Procedure Detail Performing Clinician Start: 07-17-2017 End: 07-17-2017 Dietary management education, guidance, and counseling Eric Flores MD Start: 04-27-2017 End: 04-27-2017 *BMP Eric Flores MD Start: 04-27-2017 End: 04-27-2017 *Hepatic Function Panel eRnee Thomas Start: 04-27-2017 End: 04-27-2017 Follow Up [...] Author Start: 11-09-2017 End: 11-09-2017 Appointment Appointment [facility] Work Phone: Start: 10-29-2017 End: 05-03-2017 *Hepatic Function Panel *Hepatic Function Panel [facility] Work Phone: Start: 10-29-2017 End: 05-03-2017 Lipid panel [AGGREGATE] *Lipid Profile CC PCP [facility] Work Phone: Start: 07-17-2017 End: 07-17-2017 Appointment Appointment [facility] Work Phone: Start: 07-13-2017 End: 07-13-2017 Appointment Appointment [facility] Work Phone: Start: 04-27-2017 End: 04-27-2017 Appointment Appointment [facility] Work Phone: Start: 04-27-2017 End: 04-27-2017 *BMP *BMP [facility] Work Phone: Start: 04-27-2017 End: 04-27-2017 *Hepatic Function Panel *Hepatic Function Panel [facility] Work Phone: Start: 04-27-2017 End: 04-27-2017 Follow Up Appt 6 months Follow Up Appt 6 months [facility] Work Phone: Start: 04-27-2017 End: 04-27-2017 Lipid panel [AGGREGATE] *Lipid Profile CC PCP [facility] Work Phone: Start: 04-27-2017 End: 04-27-2017 MMM MMM [facility] Work Phone: Start: 02-06-2017 End: 02-06-2017 Electrocardiogram, complete EKG (In office) [facility] Work Phone: Start: 02-06-2017 End: 02-06-2017 Follow Up Appt 3 months Follow Up Appt 3 months [facility] Work Phone: Start: 02-06-2017 End: 02-06-2017 MMM MMM [facility] Work Phone: Start: 12-27-2016 End: 12-27-2016 *Hepatic Function Panel *Hepatic Function Panel [facility] Work Phone: Start: 12-27-2016 End: 12-27-2016 Follow Up Appt 4 months Follow Up Appt 4 months [facility] Work Phone: Start: 12-27-2016 End: 12-27-2016 Lipid 1996 panel *Lipid Profile CC PCP [facility] Work Phone: Start: 12-27-2016 End: 12-27-2016 MMM MMM [facility] Work Phone: Patient Education HYPERLIPIDEMIA [facility] Work Phone: Additional Source Comments [...] BE BASED ON THE PRIMARY CLINICAL RECORDS. [employer] [facility]. provides no warranty or guarantee of the accuracy or completeness of information in this document.
== END | disposition home or self-care (01) ==
LOC: LAB 10:33
PROVIDERS: PCP Internal Medicine; Referring Provider Internal Medicine Pulmonary Disease; Visit Provider Internal Medicine Pulmonary Disease
DX: R05.9 Cough, unspecified (principal)
CPT/HCPCS: 87070; 87205

== ENCOUNTER → 2024-02-08 | Outpatient (CLI) | payer OTHER, SELFPAY ==
[2021-06-01 14:28] VITALS: BMI 35.6
[2024-02-08 09:30] LABS: Hematocrit 48.3 % (40-54); Hemoglobin 15.7 g/dL (13.0-16.5); Mean Corp Hgb Conc 32.5 g/dL (32-36); Mean Corpuscular Hgb 29.2 pg (27.0-32.0); Mean Corpuscular Volume 89.9 fL (80-94); Mean Platelet Vol. 10.4 fl (6.2-12.0); Platelet Count 270 K/mm3 (150-450); RBC Distribution Width CV 13.7 % (11.6-14.6); RBC Distribution Width SD 44.6 fl (35.1-43.9); Red Blood Count 5.37 M/mm3 (4.6-6.2); White Blood Count 10.7 K/mm3 (4.4-11.0)
== END | disposition home or self-care (01) ==
LOC: LAB.FUTURE 08:17 → LAB 08:24
PROVIDERS: PCP Internal Medicine; Referring Provider Internal Medicine Pulmonary Disease; Visit Provider Internal Medicine Pulmonary Disease
DX: J45.50 Severe persistent asthma, uncomplicated (principal)
CPT/HCPCS: 36415; 85027

== ENCOUNTER 2024-09-25 16:39 | Emergency (ER) | payer SELFPAY ==
[2021-06-01 14:28] VITALS: BMI 35.6
[2024-09-25] VITALS (7 sets, daily range): BP systolic 148–175; BP diastolic 69–115; PULSE 77–84; RESP 22–26; TEMP 35.9–36.6; O2SAT 92–99; BMI 37.2
[2024-09-25] MEDS: Ipratropium/Albuterol Sulfate 3 ML AMPUL.NEB INHALATION (17:23)
[2024-09-25 17:35] LABS: Absolute Neutrophil Count 7.8 X10^3/uL (2.0-7.7); Basophil# 0.06 X10^3/uL; Basophil% 0.5 % (0-1); Eosinophil# 0.33 X10^3/uL; Eosinophils% 2.7 % (0-5); Hematocrit 41.5 % (40-54); Hemoglobin 13.4 g/dL (13.0-16.5); Lymphocyte % 24.3 % (19-41); Mean Corp Hgb Conc 32.3 g/dL (32-36); Mean Corpuscular Hgb 28.3 pg (27.0-32.0); Mean Corpuscular Volume 87.6 fL (80-94); Mean Platelet Vol. 10.1 fl (6.2-12.0); Monocyte# 1.09 X10^3/uL; Monocyte% 8.8 % (0-10); NRBC Flagged by Analyzer 0 % (0-5); Neutrophil # 7.79 X10^3/uL (2.7-7.7); Neutrophil % 63.1 % (47-70); Platelet Count 330 K/mm3 (150-450); RBC Distribution Width CV 13.2 % (11.6-14.6); RBC Distribution Width SD 42.1 fl (35.1-43.9); Red Blood Count 4.74 M/mm3 (4.6-6.2); White Blood Count 12.3 K/mm3 (4.4-11.0)
[2024-09-25 17:50] LABS: Anion Gap 3 (5-15); BUN 23 mg/dL (7-18); BUN/Creat Ratio 20.7 RATIO (10-20); Calcium,Total 8.8 mg/dL (8.5-10.1); Chloride 108 mmol/L (98-107); Creatinine, Serum 1.11 mg/dL (0.70-1.30); EST Glomerular Filtration Rate 74 mL/min (>60); Est Glom Filt Rate - Afr Amer 89 mL/min (>60); Estimated Creatinine Clearance 93.07 ml/min; Glucose 128 mg/dL (74-106); Potassium 4.5 mmol/L (3.5-5.1); Sodium Level 140 mmol/L (136-145); Troponin-I HS 92 pg/mL (3.0-78.0)
[2024-09-25 18:24] LABS: BNP,B-Type NATRIURETIC PEPTIDE 307.2 pg/mL (0-100)
[2024-09-25] MEDS: Aspirin 81 MG TAB.CHEW 324 MG PO (18:59)
[2024-09-25 19:16] LABS: Troponin-I HS 85 pg/mL (3.0-78.0)
[2024-09-25] MEDS: APIXABAN 5 MG TABLET 10 MG PO (20:20)
== END 2024-09-25 20:32 | disposition home or self-care (01) ==
PROVIDERS: Emergency Provider Emergency Medicine; PCP Internal Medicine; Visit Provider Emergency Medicine
DX: I82.413 Acute embolism and thrombosis of femoral vein, bilateral (principal); J44.9 Chronic obstructive pulmonary disease, unspecified; E11.9 Type 2 diabetes mellitus without complications; Z79.4 Long term (current) use of insulin; I10 Essential (primary) hypertension; Z87.891 Personal history of nicotine dependence; I25.10 Atherosclerotic heart disease of native coronary artery without angina pectoris; E78.5 Hyperlipidemia, unspecified; I25.2 Old myocardial infarction; Z79.82 Long term (current) use of aspirin; Z79.899 Other long term (current) drug therapy; Z79.02 Long term (current) use of antithrombotics/antiplatelets; Z95.5 Presence of coronary angioplasty implant and graft; Z90.49 Acquired absence of other specified parts of digestive tract; R06.02 Shortness of breath
CPT/HCPCS: 71046; 71275; 80048; 83880; 84484; 85025; 85379; 87631; 93005; 93970; 94640; 99284; Q9967; A4216

== ENCOUNTER 2024-10-10 18:26 | Inpatient (IN) | payer SELFPAY ==
[2021-06-01 14:28] VITALS: BMI 35.6
[2024-10-10] VITALS (12 sets, daily range): BP systolic 126–139; BP diastolic 78–95; PULSE 81–93; RESP 22–94; TEMP 36.1–37.2; O2SAT 88–97; BMI 35.6
--- NOTE | 2024-10-10 18:59 | ED.VIS.DYS ---
HPI History of Present Illness Chief Complaint: Shortness of Breath Informant: patient and spouse/S.O. Onset/Context/Timing Onset: Month(s) (2) Context: gradual Timing: Continuous Quality: Positive for Orthopnea Worsened by: Lying flat Relieved by: Nothing Associated Symptoms cough, yellow sputum and other; Negative for rhinorrhea, post nasal drip, ear pain, fever, sore throat, chills, sweats, clear sputum, white sputum or green sputum Chest Pain: Positive for Aching Narrative Narrative: Patient presents with shortness of breath that has been getting worse over the last 2 months. Patient states it is gradually getting worse. Patient states that it is constant. Patient states he feels like he cannot get any air into his lungs. Patient states he is coughing up some thick brown sputum. Patient admits to some subjective fevers but states when he took his temperature was only 99. Patient states his breathing is worse when he lays flat. Patient admits to some aching in his chest and back. Patient states he was recently diagnosed with bilateral DVTs. Patient states he has been taking his Eliquis as prescribed. PE Risk Factors: Positive for Prior DVT or PE; Negative for Cancer, OCP + Smoking + > 35, Recent immobilization, Recent surgery or Recent travel [facility] Medical History Acute sinusitis, unspecified Left shoulder pain Insulin dependent diabetes mellitus Coronary artery disease Essential hypertension Cluster headache Migraine Headache Diabetes Obesity Community acquired pneumonia Smoker Asthma Myocardial infarct Ischemic cardiomyopathy Obesity (BMI 30.0-34.9) Chronic obstructive pulmonary disease (COPD) Nicotine dependence COPD (chronic obstructive pulmonary disease) Hyperlipidemia History of non-ST elevation myocardial infarction (NSTEMI) (11/22/20) Atherosclerosis of [place] coronary artery of [place] heart without angina pectoris Non-ST elevation [place] (NSTEMI) Home Medications ?Medication ?Instructions ?Recorded ?Last Taken ?Type aspirin 81 mg chewable tablet 81 mg PO DAILY [facility] 04/27/22 04/27/22 History loratadine 10 mg tablet 10 mg PO DAILY PRN allergies 06/26/22 Unknown History carvedilol 25 mg tablet 25 mg PO BIDCM [facility] #180 04/24/23 Unknown Rx tabs clonidine HCl 0.1 mg tablet 0.1 mg PO BID blood pressure #180 04/24/23 Unknown Rx tabs amlodipine 10 mg tablet 10 mg PO DAILY blood pressure #90 06/25/23 Unknown Rx tabs lisinopril 20 mg tablet 20 mg PO BID blood pressure #180 11/26/23 Unknown Rx tabs insulin lispro 200 unit/mL (3 mL) 14 unit subcut TIDCM glucose 12/24/23 Unknown History subcutaneous pen (Humalog KwikPen U-200 Insulin) atorvastatin 80 mg tablet 80 mg PO QHS cholesterol #90 tabs 12/28/23 Unknown Rx insulin degludec 200 unit/mL (3 50 unit (0.25 mL) subcut QHS blood 12/28/23 Unknown Rx mL) subcutaneous pen (Tresiba sugar 3 months #22.5 mL FlexTouch U-200 insulin) ranolazine 1,000 mg 1,000 mg PO BID heart #60 tabs 01/03/24 Unknown Rx tablet,extended release,12 hr clopidogrel 75 mg tablet (Plavix) 75 mg PO DAILY #90 tabs 01/15/24 Unknown Rx isosorbide mononitrate 60 mg 60 mg PO BID heart #180 TABLETS 01/15/24 Unknown Rx tablet,extended release 24 hr levofloxacin 750 mg tablet 750 mg PO DAILY #7 tabs 01/31/24 Unknown Rx nitroglycerin 0.4 mg sublingual 0.4 mg sublingual Q5-15M #25 tabs 07/22/24 Unknown Rx tablet albuterol sulfate 90 mcg/actuation 2 puff inhalation 4X/DAY PRN 09/01/24 Unknown Rx aerosol inhaler Shortness Of Breath #8.5 grams albuterol sulfate 90 mcg/actuation 2 puff inhalation Q4H PRN PRN 09/25/24 Unknown Rx aerosol inhaler (Ventolin HFA) Wheezing ##1 apixaban 5 mg tablet (Eliquis) 5 mg PO BID #74 tabs 09/25/24 Unknown Rx Allergy/AdvReac Type Severity Reaction Status Date / Time amoxicillin trihydrate (From Allergy Rash Verified 10/10/24 18:29 Augmentin) potassium clavulanate (From Allergy Rash Verified 10/10/24 18:29 Augmentin) ticagrelor (From Brilinta) Allergy Shortness Verified 10/10/24 18:29 of breath codeine AdvReac Nausea Verified 10/10/24 18:29 Family History Sister Myocardial infarction, Onset Age: 41 Diabetes Mother COPD (chronic obstructive pulmonary disease) Asthma Rheumatoid arthritis CVA (cerebral vascular accident) Hypertension Grandmother Diabetes Surgical History History of coronary artery stent placement (12/25/23) History of hernia repair (2008) History of umbilical hernia repair (1971) History of neck surgery History of appendectomy Social History household members: spouse housing: house Smoking Status: Former smoker Tobacco: How many years used: 20 Electronic Cigarette Use: not used second hand exposure: Yes alcohol intake: current alcohol intake frequency: 0-2 drinks per day Alcohol type: beer substance use type: does not use caffeine: Yes Type: carbonated beverages Number of servings: 2 and tea Number of servings: 6 what type of physical activity do you participate in: none ROS ROS ED Constitutional Constitutional ED: Denies chills or fever(s) Eyes Eyes: Denies blurry vision or change in vision ENT ENT ED: Denies rhinorrhea or sore throat Cardiovascular Cardiovascular: Denies chest pain or palpitations Respiratory/Chest Respiratory/Chest: Reports cough and dyspnea Gastrointestinal Gastrointestinal: Reports nausea and vomiting Genitourinary Genitourinary ED: Denies dysuria or hematuria Musculoskeletal Musculoskeletal: Reports back pain; Denies neck pain Integumentary Denies abscess or rash Neurologic Neurologic: Reports headache(s); Denies weakness Allergic/Immunologic Allergic/Immunologic ED: Denies mouth swelling or urticaria EXAM Physical Exam Const Vital Signs: 10/10/24 18:29 10/10/24 18:40 10/10/24 18:45 Temperature 97 F L Temperature Source Temporal Pulse Rate 93 Respiratory Rate 28 H Respiratory Effort Short of Breath Respiratory Depth Normal Respiratory Pattern Tachypnea Blood Pressure 139/78 H Blood Pressure Mean 98 Pulse Ox 90 91 Oxygen Delivery Method Room Air Room Air Nasal Cannula Oxygen Flow Rate (L/min) 2 10/10/24 19:16 10/10/24 19:16 10/10/24 19:27 Temperature Temperature Source Pulse Rate 89 88 Respiratory Rate 24 H 24 H Respiratory Effort Respiratory Depth Respiratory Pattern Tachypnea Blood Pressure 128/78 H Blood Pressure Mean 94 Pulse Ox 94 93 Oxygen Delivery Method Nasal Cannula Nasal Cannula Oxygen Flow Rate (L/min) 4 4 10/10/24 20:00 10/10/24 21:00 10/10/24 21:00 Temperature Temperature Source Pulse Rate 86 82 83 Respiratory Rate 30 H 94 H 28 H Respiratory Effort Respiratory Depth Respiratory Pattern Blood Pressure 132/80 H 126/84 H 126/84 H Blood Pressure Mean 97 98 98 Pulse Ox 94 94 93 Oxygen Delivery Method Room Air Nasal Cannula Room Air Oxygen Flow Rate (L/min) 4 10/10/24 22:00 10/10/24 22:28 10/10/24 22:29 Temperature 98.9 F 97.3 F L Temperature Source Temporal Pulse Rate 84 81 85 Respiratory Rate 31 H 32 H 32 H Respiratory Effort Respiratory Depth Respiratory Pattern Blood Pressure 131/88 H 132/80 H 132/80 H Blood Pressure Mean 102 97 97 Pulse Ox 95 94 94 Oxygen Delivery Method Nasal Cannula Nasal Cannula Oxygen Flow Rate (L/min) 4 4 10/10/24 23:00 Temperature Temperature Source Pulse Rate 85 Respiratory Rate 22 H Respiratory Effort Respiratory Depth Respiratory Pattern Blood Pressure 133/88 H Blood Pressure Mean 103 Pulse Ox 97 Oxygen Delivery Method Nasal Cannula Oxygen Flow Rate (L/min) Positive well nourished and well developed General Appearance ED: well developed and NAD HEENT Reports moist mucous membranes Neck supple and no JVD Resp Auscultation: rales bilateral base Cardio regular rate and regular rhythm GI non-tender and non-distended Palpation: soft Extremity General Extremety ED: Yes edema and tenderness General Extremity: edema Neuro oriented x3, CN's II-XII intact bilaterally and no sensory deficits noted [place] Coma Scale: document GCS findings Spontaneous Obeys Commands Oriented 15 Sensorium / Orientation: alert Speech: speech normal Motor Exam: strength 5/5 throughout Psych mental status grossly normal MDM MDM MDM Narrative Medical decision making narrative: Differential diagnosis includes pulmonary embolism, pneumonia, congestive heart failure, cardiac dysrhythmia, cardiac ischemia, electrolyte abnormality, pneumothorax, and viral illness. EKG will be obtained to assess for cardiac dysrhythmia and cardiac ischemia. CTA of the chest will be obtained to assess for pulmonary embolism, pneumonia, and pneumothorax. CBC will be obtained to assess for leukocytosis and anemia. Basic metabolic profile will be obtained to assess for electrolyte abnormality and renal function. High-sensitivity troponin will be obtained to assess for cardiac ischemia. 2-hour repeat high-sensitivity troponin will be obtained to assess for ongoing cardiac ischemia, BNP will be obtained to assess for congestive heart failure. PT with INR and PTT will be obtained to assess for coagulopathy. COVID-19, influenza, and RSV PCR will be obtained to assess for viral illness. Lab Data Attestation: I reviewed the patient's lab results. Lab results narrative: CBC was reviewed. There is a mild leukocytosis of 11.9. There is a mild anemia with a hemoglobin of 12.6 and hematocrit of 39.2. PT with INR PTT were reviewed. Pro time was 15.7 and INR is 1.3. PTT was normal at 28.5. Basic metabolic profile was reviewed and was essentially within normal limits. Serum lactate was reviewed and was normal at 1.2. High-sensitivity troponin was reviewed and was slightly elevated at 112. BNP was reviewed and was slightly elevated to 61.1. This was improving from previous result. 2-hour repeat high-sensitivity troponin was reviewed and was 105. Labs: Laboratory Results - last 24 hr 10/10/24 10/10/24 19:15 21:27 WBC 11.9 H RBC 4.54 L Hgb 12.6 L Hct 39.2 L MCV 86.3 MCH 27.8 MCHC 32.1 RDW Std Deviation 41.7 RDW Coeff of Narcisa 13.4 Plt Count 320 MPV 10.3 Immature Gran % (Auto) 0.300 Neut % (Auto) 72.1 H Lymph % (Auto) 16.3 L [place] % (Auto) 10.3 H Eos % (Auto) 0.6 Baso % (Auto) 0.4 Absolute Neuts (auto) 8.6 H Absolute Lymphs (auto) 1.94 Nucleated RBC % 0 PT 15.7 H INR 1.3 APTT 28.5 Sodium 138 Potassium 3.7 Chloride 105 Carbon Dioxide 28.0 Anion Gap 6 BUN 16 Creatinine 1.09 Estim Creat Clear Calc 92.66 Est GFR (MDRD) Af Amer 91 Est GFR (MDRD) Non-Af 75 BUN/Creatinine Ratio 14.7 Glucose 160 H Lactic Acid 1.2 Calcium 8.9 Troponin I High Sens 112 H 105 H B-Natriuretic Peptide 261.1 H Radiography CTA PE Study: No Evidence of PE and No Evidence of Dissection Diagnostic Testing: Clinical Impression(s) from Imaging Studies Chest CTA 10/10/24 19:03 IMPRESSION: ASHD and questionable mild bibasilar interstitial edema or infiltrates No evidence for pulmonary embolus Electronically Signed: David Yanez MD at 20:40 EST Reading Location ID and State: [facility] / [place] Tel , Service support , CT of the chest was obtained. There is mild bibasilar interstitial edema. There is no evidence of pulmonary embolism. EKG Initial EKG: Attestation: I personally reviewed and interpreted this EKG as follows: Interpretation: Sinus Rhythm (85) and No Acute Injury Pattern Comments: EKG was obtained. On my independent interpretation, shows normal sinus rhythm with a rate of 85. CT interval was normal at 164 ms. QRS interval was normal at 102 ms. QTc interval was borderline at 487 ms. [place] was normal. There are no acute ST or T wave changes noted. There is poor R wave progression across the precordial leads. This was unchanged compared to previous EKG. Prior EKG tracings: available for review Prior: Unchanged (09/25/2024) Management Discussion w/another healthcare provider: Hospitalist Treatment and Re-Evaluation :: Patient was given a DuoNeb aerosol. Patient was given aspirin. Patient was requiring oxygen. Patient was given a dose of Lasix. Patient was advised of his findings. Patient was advised of his need for hospitalization for supplemental oxygen and further evaluation. Patient is agreeable with this. Case was discussed with the hospitalist. He will admit the patient to PCU. Patient understood and was agreeable with the plan. All questions were answered. Discharge Plan Dx/Rx/DC Orders Clinical Impression: Hypoxia, Congestive heart failure, Peripheral edema, Essential hypertension Disposition Disposition: Acute Care Hospital [facility]
--- NOTE | 2024-10-10 19:03 | CT_ITS ---
STUDY: CTA CHEST REASON FOR EXAM: Male, 54 years old. Dyspnea RADIATION DOSAGE (If Supplied By Facility): CTDIvol = ( 10.38 ) mGy, DLP = ( 488.14 ) mGycm TECHNIQUE: The examination was performed with the intravenous administration of IV 100mL Isovue-370. Post-processing of the angiographic images was performed, with multiplanar reformation and 3D reconstruction. Individualized dose optimization techniques were used for this CT. COMPARISON: September 25, 2024 FINDINGS: Normal enhancement of the main pulmonary artery and right and left pulmonary arteries. Normal enhancement of the bilateral peripheral pulmonary arteries. There is no demonstrated pulmonary embolism. Minor atherosclerotic changes of the aorta without evidence for aneurysm. There is no demonstrated aortic dissection. The heart is enlarged and there is a small pericardial effusion with multifocal coronary artery calcification Small subcentimeter mediastinal and hilar nodes likely benign.. Normal visualized trachea and bronchi. The lungs are well expanded. Mild bibasilar interstitial thickening with groundglass opacity possibly due to mild pulmonary interstitial edema or inflammatory disease.. Normal pleura. Normal chest wall structures. Dorsal spine demonstrates degenerative change Tiny hypoattenuated nodule in the right adrenal likely benign CT/CTA Chest W/WO Contrast IMPRESSION: ASHD and questionable mild bibasilar interstitial edema or infiltrates No evidence for pulmonary embolus Electronically Signed: David Yanez MD at 20:40 EST ,
--- NOTE | 2024-10-10 19:04 | EKG12_ITS ---
Test Reason : DYSRHYTHMIA Blood Pressure : */* mmHG Vent. Rate : 85 BPM Atrial Rate : 85 BPM P-R Int : 164 ms QRS Dur : 102 ms QT Int : 410 ms P-R-T Axes : 67 32 83 degrees QTcB Int : 487 ms Normal sinus rhythm Low voltage QRS Cannot rule out Anterior infarct , age undetermined Abnormal ECG Confirmed by Harvey Murphy [id number]), senior technical editor EVELIO CURRY ([id number]) on 10/13/2024 6:24:07 AM Referred By: Confirmed By: Harvey Murphy
[2024-10-10] MEDS: Aspirin 81 MG TAB.CHEW 324 MG PO (19:10)
[2024-10-10] MEDS: Ipratropium/Albuterol Sulfate 3 ML AMPUL.NEB INHALATION (19:16)
[2024-10-10 19:24] LABS: Absolute Lymphocyte Count 1.94 X10^3/uL (0.83-4.51); Absolute Neutrophil Count 8.6 X10^3/uL (2.0-7.7); Basophil# 0.05 X10^3/uL; Basophil% 0.4 % (0-1); Eosinophil# 0.07 X10^3/uL; Eosinophils% 0.6 % (0-5); Hematocrit 39.2 % (40-54); Hemoglobin 12.6 g/dL (13.0-16.5); Lymphocyte # 1.94 X10^3/ul (0.83-4.51); Lymphocyte % 16.3 % (19-41); Mean Corp Hgb Conc 32.1 g/dL (32-36); Mean Corpuscular Hgb 27.8 pg (27.0-32.0); Mean Corpuscular Volume 86.3 fL (80-94); Mean Platelet Vol. 10.3 fl (6.2-12.0); Monocyte# 1.23 X10^3/uL; Monocyte% 10.3 % (0-10); NRBC Flagged by Analyzer 0 % (0-5); Neutrophil # 8.58 X10^3/uL (2.7-7.7); Neutrophil % 72.1 % (47-70); Platelet Count 320 K/mm3 (150-450); RBC Distribution Width CV 13.4 % (11.6-14.6); RBC Distribution Width SD 41.7 fl (35.1-43.9); Red Blood Count 4.54 M/mm3 (4.6-6.2); White Blood Count 11.9 K/mm3 (4.4-11.0)
[2024-10-10 19:39] LABS: International Normalized Ratio 1.3; Partial Thromboplast Time 28.5 Seconds (24.1-36.2); Prothrombin Time (Protime)PT. 15.7 SECONDS (11.7-14.9)
[2024-10-10 19:49] LABS: BNP,B-Type NATRIURETIC PEPTIDE 261.1 pg/mL (0-100)
[2024-10-10 19:52] LABS: Anion Gap 6 (5-15); BUN 16 mg/dL (7-18); BUN/Creat Ratio 14.7 RATIO (10-20); Calcium,Total 8.9 mg/dL (8.5-10.1); Chloride 105 mmol/L (98-107); Creatinine, Serum 1.09 mg/dL (0.70-1.30); EST Glomerular Filtration Rate 75 mL/min (>60); Est Glom Filt Rate - Afr Amer 91 mL/min (>60); Estimated Creatinine Clearance 92.66 ml/min; Glucose 160 mg/dL (74-106); Potassium 3.7 mmol/L (3.5-5.1); Sodium Level 138 mmol/L (136-145); Troponin-I HS (w/2H Reflex) 112 pg/mL (3.0-78.0)
[2024-10-10 19:57] LABS: Lactic Acid 1.2 mmol/L (0.4-1.9)
[2024-10-10 21:18] LABS: Reflex Troponin-HS? (from REC) Y
[2024-10-10 21:51] LABS: Troponin-I HS 105 pg/mL (3.0-78.0)
[2024-10-10] MEDS: Furosemide 40 MG/4 ML Vial IV (22:25)
--- NOTE | 2024-10-10 23:36 | PCM.HP.STD ---
[facility] - General General Date of Admission: 10/11/24 Date of Service: 10/10/24 Chief Complaint: SOB and Cough. HPI Narrative LATONYA ELDER, is a 54 M with a past medical history of essential hypertension; on coreg, lisinopril and clonidine, hyperlipidemia; on high dose atrovastatin, obesity; with BMI of 35.7 this admission, IDDM; of unknown control on degludec and humalog TID, history of HONK, history of tobacco abuse; with subsequent asthma/COPD, CAD; s/p stent (2003) and NSTEMI (2016, 2018 & 2020) on BASA and Plavix, Ischemic Cardiomyopathy; with chronic chest pain on ranolazine, ISMO and prn NTG, history of CHF; with peripheral edema, history of recently diagnosed bilateral LE DVT's; on apixaban, history of sepsis, history of appendectomy, history of hernia; s/p repair (2008), remote history of umbilical hernia repair (1971), history of migraine & cluster headaches, history of sinusitis, history of vitamin D deficiency, history of thrush, seasonal allergies, listed allergy to augmentin (rash), listed allergy to brilinta (SOB), listed allergy to codeine (nausea) and OA; with chronic Left shoulder pain and history of neck surgery who presents to [facility] ER complaining of SOB and cough. Mr. Elder reports his symptoms began approximately 2 months prior to admission with the gradual-onset of progressively worsening LOPEZ with patient now significantly SOB at rest. He states he constantly feels like he cannot get enough air in his lungs in addition to having a cough productive of thick, brownish sputum which he states is very unusual for him. He admits to subjective fever with his temperature mildly elevated at 99 degrees Fahrenheit with headache followed by nausea with bilious emesis. He states his SOB is made worse with activity and lying flat with a corresponding aching sensation in his chest and back. He affirms he has been taking his Eliquis and other medications as prescribed - but he continued to get worse so he finally decided to come in for further evaluation and treatment. He denies associated chills, runny nose, sore throat, chest pain, palpitations, paresthesias or rash but he does admit to generalized weakness and fatigue. In the ER he was diagnosed with AE COPD plus acute Bronchitis with a corresponding Leukocytosis of 11.9 K present on admission complicated by clinical evidence of Acute Respiratory Insufficiency patient requiring 4L NC compounded by mild, but poorly tolerated AE CHF with chest imaging consistent with pulmonary vascular congestion and elevated BNP of 261.1 pg/mL present on admission along with elevated troponin of 105 pg/mL likely due to Acute Cardiac Strain and he was then admitted to the PCU for ongoing care for stay that is expected to extend beyond 2 midnights. [facility] Medical History Acute sinusitis, unspecified Left shoulder pain Insulin dependent diabetes mellitus Coronary artery disease Essential hypertension Cluster headache Migraine Headache Diabetes Obesity Community acquired pneumonia Smoker Asthma Myocardial infarct Ischemic cardiomyopathy Obesity (BMI 30.0-34.9) Chronic obstructive pulmonary disease (COPD) Nicotine dependence COPD (chronic obstructive pulmonary disease) Hyperlipidemia History of non-ST elevation myocardial infarction (NSTEMI) (11/22/20) Atherosclerosis of [place] coronary artery of [place] heart without angina pectoris Non-ST elevation [place] (NSTEMI) Home Medications ?Medication ?Instructions ?Recorded ?Last Taken ?Type aspirin 81 mg chewable tablet 81 mg PO DAILY [facility] 04/27/22 04/27/22 History loratadine 10 mg tablet 10 mg PO DAILY PRN allergies 06/26/22 Unknown History carvedilol 25 mg tablet [address] [facility] #180 04/24/23 Unknown Rx tabs clonidine HCl 0.1 mg tablet 0.1 mg PO BID blood pressure #180 04/24/23 Unknown Rx tabs amlodipine 10 mg tablet 10 mg PO DAILY blood pressure #90 06/25/23 Unknown Rx tabs lisinopril 20 mg tablet 20 mg PO BID blood pressure #180 11/26/23 Unknown Rx tabs insulin lispro 200 unit/mL (3 mL) 14 unit subcut TIDCM glucose 12/24/23 Unknown History subcutaneous pen (Humalog KwikPen U-200 Insulin) atorvastatin 80 mg tablet 80 mg PO QHS cholesterol #90 tabs 12/28/23 Unknown Rx insulin degludec 200 unit/mL (3 50 unit (0.25 mL) subcut QHS blood 12/28/23 Unknown Rx mL) subcutaneous pen (Tresiba sugar 3 months #22.5 mL FlexTouch U-200 insulin) ranolazine 1,000 mg 1,000 mg PO BID heart #60 tabs 01/03/24 Unknown Rx tablet,extended release,12 hr clopidogrel 75 mg tablet (Plavix) 75 mg PO DAILY #90 tabs 01/15/24 Unknown Rx isosorbide mononitrate 60 mg 60 mg PO BID heart #180 TABLETS 01/15/24 Unknown Rx tablet,extended release 24 hr levofloxacin 750 mg tablet 750 mg PO DAILY #7 tabs 01/31/24 Unknown Rx nitroglycerin 0.4 mg sublingual 0.4 mg sublingual Q5-15M #25 tabs 07/22/24 Unknown Rx tablet albuterol sulfate 90 mcg/actuation 2 puff inhalation 4X/DAY PRN 09/01/24 Unknown Rx aerosol inhaler Shortness Of Breath #8.5 grams albuterol sulfate 90 mcg/actuation 2 puff inhalation Q4H PRN PRN 09/25/24 Unknown Rx aerosol inhaler (Ventolin HFA) Wheezing ##1 apixaban 5 mg tablet (Eliquis) 5 mg PO BID #74 tabs 09/25/24 Unknown Rx Allergy/AdvReac Type Severity Reaction Status Date / Time amoxicillin trihydrate (From Allergy Rash Verified 10/10/24 18:29 Augmentin) potassium clavulanate (From Allergy Rash Verified 10/10/24 18:29 Augmentin) ticagrelor (From Brilinta) Allergy Shortness Verified 10/10/24 18:29 of breath codeine AdvReac Nausea Verified 10/10/24 18:29 Family History Sister Myocardial infarction, Onset Age: 41 Diabetes Mother COPD (chronic obstructive pulmonary disease) Asthma Rheumatoid arthritis CVA (cerebral vascular accident) Hypertension Grandmother Diabetes Surgical History History of coronary artery stent placement (12/25/23) History of hernia repair (2008) History of umbilical hernia repair (1971) History of neck surgery History of appendectomy Social History household members: spouse housing: house Smoking Status: Former smoker Tobacco: How many years used: 20 Electronic Cigarette Use: not used second hand exposure: Yes alcohol intake: current alcohol intake frequency: 0-2 drinks per day Alcohol type: beer substance use type: does not use caffeine: Yes Type: carbonated beverages Number of servings: 2 and tea Number of servings: 6 what type of physical activity do you participate in: none ROS ROS Narrative Review of Systems: Constitutional: Patient admits to generalized weakness and fatigue but he denies fever or chills. Vital Signs Vital Signs Vital Signs: 10/10/24 18:29 10/10/24 18:40 10/10/24 18:45 Temperature 97 F L Temperature Source Temporal Pulse Rate 93 Respiratory Rate 28 H Respiratory Effort Short of Breath Respiratory Depth Normal Respiratory Pattern Tachypnea Blood Pressure 139/78 H Blood Pressure Mean 98 Pulse Ox 90 91 Oxygen Delivery Method Room Air Room Air Nasal Cannula Oxygen Flow Rate (L/min) 2 10/10/24 19:16 10/10/24 19:16 10/10/24 19:27 Temperature Temperature Source Pulse Rate 89 88 Respiratory Rate 24 H 24 H Respiratory Effort Respiratory Depth Respiratory Pattern Tachypnea Blood Pressure 128/78 H Blood Pressure Mean 94 Pulse Ox 94 93 Oxygen Delivery Method Nasal Cannula Nasal Cannula Oxygen Flow Rate (L/min) 4 4 10/10/24 20:00 10/10/24 21:00 10/10/24 21:00 Temperature Temperature Source Pulse Rate 86 82 83 Respiratory Rate 30 H 94 H 28 H Respiratory Effort Respiratory Depth Respiratory Pattern Blood Pressure 132/80 H 126/84 H 126/84 H Blood Pressure Mean 97 98 98 Pulse Ox 94 94 93 Oxygen Delivery Method Room Air Nasal Cannula Room Air Oxygen Flow Rate (L/min) 4 10/10/24 22:00 10/10/24 22:28 10/10/24 22:29 Temperature 98.9 F 97.3 F L Temperature Source Temporal Pulse Rate 84 81 85 Respiratory Rate 31 H 32 H 32 H Respiratory Effort Respiratory Depth Respiratory Pattern Blood Pressure 131/88 H 132/80 H 132/80 H Blood Pressure Mean 102 97 97 Pulse Ox 95 94 94 Oxygen Delivery Method Nasal Cannula Nasal Cannula Oxygen Flow Rate (L/min) 4 4 10/10/24 23:00 Temperature Temperature Source Pulse Rate 85 Respiratory Rate 22 H Respiratory Effort Respiratory Depth Respiratory Pattern Blood Pressure 133/88 H Blood Pressure Mean 103 Pulse Ox 97 Oxygen Delivery Method Nasal Cannula Oxygen Flow Rate (L/min) Weight Weight: 234 lb 8 oz Body Mass Index (BMI) 35.6 Results Lab / Micro Data 10/11/24 04:20 10/11/24 04:20 Labs: Laboratory Results - last 24 hr 10/10/24 19:15: WBC 11.9 H, RBC 4.54 L, Hgb 12.6 L, Hct 39.2 L, MCV 86.3, MCH 27.8, MCHC 32.1, RDW Std Deviation 41.7, RDW Coeff of Narcisa 13.4, Plt Count 320, MPV 10.3, Immature Gran % (Auto) 0.300, Neut % (Auto) 72.1 H, Lymph % (Auto) 16.3 L, [place] % (Auto) 10.3 H, Eos % (Auto) 0.6, Baso % (Auto) 0.4, Absolute Neuts (auto) 8.6 H, Absolute Lymphs (auto) 1.94, Nucleated RBC % 0, PT 15.7 H, INR 1.3, APTT 28.5, Sodium 138, Potassium 3.7, Chloride 105, Carbon Dioxide 28.0, Anion Gap 6, BUN 16, Creatinine 1.09, Estim Creat Clear Calc 92.66, Est GFR (MDRD) Af Amer 91, Est GFR (MDRD) Non-Af 75, BUN/Creatinine Ratio 14.7, Glucose 160 H, Lactic Acid 1.2, Calcium 8.9, Troponin I High Sens 112 H, B-Natriuretic Peptide 261.1 H 10/10/24 21:27: Troponin I High Sens 105 H Imaging Radiology Impression Chest CTA 10/10/24 19:03 IMPRESSION: ASHD and questionable mild bibasilar interstitial edema or infiltrates No evidence for pulmonary embolus Electronically Signed: David Yanez MD at 20:40 EST Reading Location ID and State: [address] [place] [address] Tel , Service support , Assessment & Plan Assessment/Plan (1) COPD exacerbation: (2) Acute bronchitis: QUALIFIERS: Bronchitis organism: unspecified organism Qualified Code(s): J20.9 - Acute bronchitis, unspecified (3) Congestive heart failure: QUALIFIERS: Heart failure chronicity: acute on chronic Heart failure type: unspecified Qualified Code(s): I50.9 - Heart failure, unspecified (4) Elevated troponin: (5) Respiratory insufficiency: (6) Obesity (BMI 30.0-34.9): (7) Ischemic cardiomyopathy: (8) History of DVT (deep vein thrombosis): (9) Essential hypertension: (10) Insulin dependent diabetes mellitus: PLAN: Plan 1. AE COPD plus acute Bronchitis with a corresponding Leukocytosis of 11.9 K present on admission in the setting of a known history of tobacco abuse - Admit to PCU. Start treatment with empiric IV Doxycycline and IV Solumedrol plus scheduled and prn nebulizers. Tobacco cessation will be strongly encouraged with Nicotine patch offered to control cravings. Give Tylenol prn for [id number] (level 1-5/10) pain or fever. Give IV Morphine prn for severe (level 6-10/10) pain. 2. AE CHF with chest imaging consistent with pulmonary vascular congestion and elevated BNP of 261.1 pg/mL present on admission complicating #1 in the setting of known Chronic CHF - Give Lasix 40 mg IV BID plus supplemental KCl and magnesium. Recent echocardiogram done 12/2023 revealed mild concentric LVH with normal LV size, normal diastolic function and LVEF ~50%. Finally, we will consult [facility] to see this patient on-rounds in the AM for further recommendations with help appreciated in advance. 3. Elevated troponin of 105 pg/mL likely due to Acute Cardiac Strain arising from #1 & #2 in the setting of known CAD; s/p stent (2003) and NSTEMI (2016, 2018 & 2020) on BASA and Plavix plus Ischemic Cardiomyopathy; with chronic chest pain on ranolazine, ISMO and prn NTG - Serialize troponin. Continue BASA, Plavix and Ranolazine plus stop apixaban in favor of full-dose Lovenox. Restart Eliquis if troponins do not trend upward. 4. Acute Respiratory Insufficiency patient requiring 4L NC attributable to #1 - #3 - Wean supplemental oxygen as tolerated. 5. History of recently diagnosed bilateral LE DVT's; on apixaban adding to the medical complexity of #1 - #4 - Hold Eliquis and give full-dose Lovenox in light of #3. 6. Obesity; with BMI of 35.7 this admission adding to the burden of disease outlined from #1 - #5 - Weight loss will be recommended. Check TSH. This complicates his case and may hamper recovery. 7. Essential hypertension; on coreg, lisinopril and clonidine - Maintain current regimen plus give prn IV Hydralazine for systolic blood pressure > 160 mmHg. 8. Hyperlipidemia; on high-dose atrovastatin - Resume statin and check Lipid Profile. 9. IDDM; of unknown control on degludec and humalog TID - ADA/Cardiac diet. FSBS q. AC/HS plus SSI. Continue home insulin regimen at ~60% of routine dose. 10. History of HONK - Noted. 11. History of sepsis - Noted. 12. History of appendectomy - Noted. 13. History of hernia; s/p repair (2008) - Noted. 14. Remote history of umbilical hernia repair (1971) - Noted for the sake of completeness. 15. History of migraine & cluster headaches - Noted with no complaints of headache at this time. 16. History of sinusitis - Noted with no signs of recurrence. 17. History of vitamin D deficiency - Noted. Check vitamin D level. 18. History of thrush - Noted. 19. Seasonal allergies - Noted. 20. Listed allergy to augmentin (rash) - Noted. 21. Listed allergy to brilinta (SOB) - Noted. 22. Listed allergy to codeine (nausea) - Noted. 23. OA; with chronic Left shoulder pain and history of neck surgery - Stable with plan to follow pain regimen outlined in #1. 24. DVT prophylaxis - Patient on full-dose Lovenox for #3. Total time: Approximately (but not less than) 75 minutes.
[2024-10-11] VITALS (15 sets, daily range): BP systolic 134–167; BP diastolic 78–100; PULSE 80–94; RESP 17–27; TEMP 36.1–37.1; O2SAT 93–98; BMI 34.0
[2024-10-11] MEDS: guaiFENesin 1,200 MG Tablet 1200 MG PO ×3 (01:36→21:48)
[2024-10-11] MEDS: MethylPREDNISolone 125 MG/2 ML Vial IV (01:36)
[2024-10-11] MEDS: Doxycycline 100 MG in Dextrose 5%-Water (250mL Bag) 250 ML 250 MG IV ×2 (01:36→10:54)
[2024-10-11] MEDS: 0.9% Saline Lock 10 ML Syringe IV ×4 (01:36→17:10)
[2024-10-11] MEDS: Enoxaparin 100 MG/ML Syringe SC (01:37)
[2024-10-11 02:04] LABS: Hemoglobin A1c 9.5 % (3.8-5.6)
--- NOTE | 2024-10-11 02:10 | RAD_ITS ---
INDICATION: AE CHF EXAMINATION/TECHNIQUE: X-RAY - XR Chest 1 View COMPARISON: CTA ChestNov 2023 8:04pm FINDINGS: LINES/DEVICES: None. LUNGS: No consolidation, edema or effusion. No pneumothorax. MEDIASTINUM AND CARDIOVASCULAR STRUCTURES: Cardiac silhouette not enlarged. Central airways and mediastinal contour are unremarkable. BONES AND SOFT TISSUES: Unremarkable. RAD/Chest 1 View (Portable) IMPRESSION: No radiographic evidence of acute cardiopulmonary disease. Electronically Signed: Danya Osborn MD at 6:28 EST ,
[2024-10-11 02:16] LABS: Bedside Glucose 152 mg/dL (74-106)
[2024-10-11 02:23] LABS: Troponin-I HS 99 pg/mL (3.0-78.0)
[2024-10-11] MEDS: Albuterol 2.5 MG/3 ML VIAL.NEB. INHALATION ×4 (04:04→13:42)
[2024-10-11 05:45] LABS: Absolute Lymphocyte Count 1.52 X10^3/uL (0.83-4.51); Absolute Neutrophil Count 10.1 X10^3/uL (2.0-7.7); Basophil# 0.06 X10^3/uL; Basophil% 0.5 % (0-1); Eosinophil# 0.13 X10^3/uL; Eosinophils% 1.1 % (0-5); Hematocrit 42.6 % (40-54); Hemoglobin 13.2 g/dL (13.0-16.5); Lymphocyte # 1.52 X10^3/ul (0.83-4.51); Lymphocyte % 12.3 % (19-41); Mean Corpuscular Hgb 27.3 pg (27.0-32.0); Mean Corpuscular Volume 88.2 fL (80-94); Mean Platelet Vol. 10.7 fl (6.2-12.0); Monocyte# 0.48 X10^3/uL; Monocyte% 3.9 % (0-10); NRBC Flagged by Analyzer 0 % (0-5); Neutrophil # 10.07 X10^3/uL (2.7-7.7); Neutrophil % 81.8 % (47-70); Platelet Count 350 K/mm3 (150-450); RBC Distribution Width CV 13.3 % (11.6-14.6); RBC Distribution Width SD 43.4 fl (35.1-43.9); Red Blood Count 4.83 M/mm3 (4.6-6.2); White Blood Count 12.3 K/mm3 (4.4-11.0)
[2024-10-11 05:57] LABS: BNP,B-Type NATRIURETIC PEPTIDE 206.7 pg/mL (0-100)
[2024-10-11 06:07] LABS: ALB/GLOB Ratio 0.7 RATIO (0.9-2.4); AST(SGOT) 13 U/L (15-37); Alanine Aminotransfer ALT/SGPT 20 U/L (16-61); Alkaline Phosphatase 93 U/L (45-117); Anion Gap 8 (5-15); BUN 23 mg/dL (7-18); BUN/Creat Ratio 16.5 RATIO (10-20); Chloride 99 mmol/L (98-107); Creatinine, Serum 1.39 mg/dL (0.70-1.30); EST Glomerular Filtration Rate 57 mL/min (>60); Est Glom Filt Rate - Afr Amer 69 mL/min (>60); Globulin 4.3 g/dL (2.2-4.2); Glucose 226 mg/dL (74-106); Phosphorus 2.8 mg/dL (2.5-4.9); Potassium 3.7 mmol/L (3.5-5.1); Protein, Total 7.3 g/dL (6.4-8.2); Sodium Level 135 mmol/L (136-145)
[2024-10-11 06:27] LABS: Cholesterol 146 mg/dL (200); High Density Lipoprotein 33 mg/dL; Triglycerides 119 mg/dL; Very Low Density Lipoprotein 24 mg/dL (5-40)
[2024-10-11 08:16] LABS: Bedside Glucose 252 mg/dL (74-106)
--- NOTE | 2024-10-11 08:17 | PN.HOSP_ITS ---
Reason for Visit Reason for Visit: Diagnoses Obesity, unspecified (10/11/24) Essential (primary) hypertension (10/11/24) Ischemic cardiomyopathy (10/11/24) Heart failure, unspecified (10/11/24) Acute bronchitis, unspecified (10/11/24) Chronic obstructive pulmonary disease with (acute) exacerbation (10/11/24) Other abnormalities of breathing (10/11/24) Other specified abnormalities of plasma proteins (10/11/24) Other specified abnormal findings of blood chemistry (10/11/24) Personal history of other venous thrombosis and embolism (10/11/24) Objective Data Objective Data Vital Signs: Vital Signs Temp Pulse Resp BP Pulse Ox O2 Del Method O2 Flow Rate 96.9 F L 84 18 156/100 H 94 Nasal Cannula 4 10/11/24 05:34 10/11/24 05:34 10/11/24 05:34 10/11/24 05:34 10/11/24 08:03 10/11/24 08:03 10/11/24 08:03 Oxygen Flow Rate (L/min) 4 Oxygen Delivery Method Nasal Cannula Weight: 223 lb 15.834 oz Body Mass Index (BMI) 34.0 Intake & Output: Intake and Output for Last 24 Hours 10/09/24 10/10/24 10/11/24 23:59 23:59 23:59 Intake Total 260 / 260 Balance 260 / 260 Lab / Micro Data 10/11/24 04:20 10/11/24 04:20 Labs: Laboratory Results - last 24 hr 10/10/24 19:15: WBC 11.9 H, RBC 4.54 L, Hgb 12.6 L, Hct 39.2 L, MCV 86.3, MCH 27.8, MCHC 32.1, RDW Std Deviation 41.7, RDW Coeff of Narcisa 13.4, Plt Count 320, MPV 10.3, Immature Gran % (Auto) 0.300, Neut % (Auto) 72.1 H, Lymph % (Auto) 16.3 L, [place] % (Auto) 10.3 H, Eos % (Auto) 0.6, Baso % (Auto) 0.4, Absolute Neuts (auto) 8.6 H, Absolute Lymphs (auto) 1.94, Nucleated RBC % 0, PT 15.7 H, INR 1.3, APTT 28.5, Sodium 138, Potassium 3.7, Chloride 105, Carbon Dioxide 28.0, Anion Gap 6, BUN 16, Creatinine 1.09, Estim Creat Clear Calc 92.66, Est GFR (MDRD) Af Amer 91, Est GFR (MDRD) Non-Af 75, BUN/Creatinine Ratio 14.7, G lucose 160 H, Hemoglobin A1c 9.5 H, Lactic Acid 1.2, Calcium 8.9, Troponin I High Sens 112 H, B-Natriuretic Peptide 261.1 H 10/10/24 21:27: Troponin I High Sens 105 H 10/11/24 01:54: POC Glucose 152 H 10/11/24 01:59: Troponin I High Sens 99 H 10/11/24 04:20: WBC 12.3 H, RBC 4.83, Hgb 13.2, Hct 42.6, MCV 88.2, MCH 27.3, M CHC 31.0 L, RDW Std Deviation 43.4, RDW Coeff of Narcisa 13.3, Plt Count 350, MPV 10.7, Immature Gran % (Auto) 0.400, Neut % (Auto) 81.8 H, Lymph % (Auto) 12.3 L, [place] % (Auto) 3.9, Eos % (Auto) 1.1, Baso % (Auto) 0.5, Absolute Neuts (auto) 10.1 H, Absolute Lymphs (auto) 1.52, Nucleated RBC % 0, Sodium 135 L, Potassium 3.7, Chloride 99, Carbon Dioxide 28.0, Anion Gap 8, BUN 23 H, Creatinine 1.39 H, Estim Creat Clear Calc 71.00, Est GFR (MDRD) Af Amer 69, Est GFR (MDRD) Non-Af 57 L, BUN/Creatinine Ratio 16.5, Glucose 226 H, Calcium 9.0, Phosphorus 2.8, Magnesium 2.0, Total Bilirubin 0.60, AST 13 L, ALT 20, Alkaline Phosphatase 93, B-Natriuretic Peptide 206.7 H, Total Protein 7.3, A lbumin 3.0 L, Globulin 4.3 H, Albumin/Globulin Ratio 0.7 L, Triglycerides 119 10/11/24 04:20: Triglycerides Cancelled, Cholesterol 146 10/11/24 04:20: Cholesterol Cancelled, LDL Cholesterol 89 10/11/24 04:20: LDL Cholesterol Cancelled, VLDL Cholesterol 24 10/11/24 04:20: VLDL Cholesterol Cancelled, HDL Cholesterol 33 L 10/11/24 04:20: HDL Cholesterol Cancelled, TSH 1.590 10/11/24 07:48: POC Glucose 252 H Micro: Microbiology 10/11/24 01:31 Mucosa - Nasopharyngeal Respiratory Panel (PCR) - Final Radiography Diagnostic Testing: Radiology Impression Chest CTA 10/10/24 19:03 IMPRESSION: ASHD and questionable mild bibasilar interstitial edema or infiltrates No evidence for pulmonary embolus Electronically Signed: David Yanez MD at 20:40 EST , Chest X-Ray 10/11/24 02:10 IMPRESSION: No radiographic evidence of acute cardiopulmonary disease. Electronically Signed: Danya Osborn MD at 6:28 EST , Physical Exam Narrative Seen and examined. Patient complain of shortness of breath for 2 months, chronic cough along with thick brownish sputum. Has bilateral leg swelling. Recently on September 25 he was diagnosed with bilateral DVT and started on Eliquis since then leg swelling slightly better but is still very swollen. He quit smoking on past Sunday 2 days. History of diagnosed COPD Physical exam General: Alert, Oriented x3, Cooperative. BMI 35.7 kg/m? HEENT: Atraumatic, PERRLA, EOMI, Normocephalic Oral: No Gingival or Mucosal Lesions/ Ulcerations Neck: Supple, No JVD, Negative Carotid Bruits Chest wall/Lungs: Air entry severely diminished bilaterally. Bilateral expiratory rhonchi and wheezing. Cardiovascular: Regular rate, Regular Rhythm, Normal S1, Normal S2, No M/G/R Abdomen: Bowel Sounds Present, Soft, Non Tender, Non-Distended : No dysuria. No renal angle tenderness. No suprapubic tenderness. Extremities: 3+ bilateral pitting edema above knee level, Capillary Refill Less than 3 Seconds Skin: No rashes, No breakdown Musculoskeletal: No Tenderness to Palpation of Joints or Extremities Neurological: Cranial nerves II-XII grossly intact, DTR 2+/4. No acute focal neurological deficit. Psych/Mental Status: Normal Affect, Appropriate. Assessment & Plan Assessment/Plan (1) COPD exacerbation: (2) Congestive heart failure: QUALIFIERS: Heart failure chronicity: acute on chronic Heart failure type: unspecified Qualified Code(s): I50.9 - Heart failure, unspecified (3) Obesity (BMI 30.0-34.9): (4) Essential hypertension: (5) Insulin dependent diabetes mellitus: PLAN: Plan 54-year-old gentleman admitted with gradual worsening of SOB for 2 months along with coughing up thick brownish sputum, subjective fever, T99 Fahrenheit. SOB worse on laying flat with aches and pain in chest and back. Recently diagnosed with bilateral DVT on Eliquis on 09/25/2020. 1. AE COPD plus acute Bronchitis with history of chronic cigarette smoking and acute hypoxic- Admit to PCU. Start treatment with empiric IV Doxycycline and IV Solumedrol plus scheduled and prn nebulizers. Stated he quit smoking on 10/09/2024. Nicotine offered. Respiratory panel is negative. Sputum culture pending. Triple PCR for SARS-CoV-2, flu and RSV are negative on 09/25/2020 2. Acute on chronic HFpEF with chest imaging consistent with pulmonary vascular congestion and elevated BNP of 261.1 pg/mL present on admission: On furosemide 40 mg IV twice daily with potassium supplement and magnesium. Recent echocardiogram done 12/2023 revealed moderate concentric LVH with normal LV size, and LVEF ~50%. Application Development Project Manager consulted. Heart failure core measures including intake and output, fluid restriction less than 1500 mL, daily weight monitoring, kidney and electrolytes monitoring. 3. CAD, non-STEMI status post multiple stents: Troponins are elevated 105. Patient denies chest pain or pressure but has chest congestion from COPD exacerbation and cough and chronic angina on ranolazine. On aspirin, Plavix, ranolazine and full dose of Lovenox. Echo 12/2023 Interpretation Summary The estimated ejection fraction is 50 %. Moderate concentric left ventricular hypertrophy. Compared to prior study, there is no significant change. 5. Recent subacute bilateral LE DVT's; on apixaban on 09/25/2020:- Hold Eliquis and give full-dose Lovenox in light of #3. 6. Obesity grade 2 obesity; with BMI of 35.7 KG per square 7. Essential hypertension; on coreg, lisinopril and clonidine - Maintain current regimen plus give prn IV Hydralazine for systolic blood pressure > 160 mmHg. 8. Hyperlipidemia; on high-dose atrovastatin -FLP LDL 89, VLDL 24, HDL 33. Resume statin 9. IDDM; of unknown control on degludec and humalog TID - ADA/Cardiac diet. FSBS q. AC/HS plus SSI. Continue the home dose of insulin as patient is on IV Solu-Medrol. 10. OA; with chronic Left shoulder pain and history of neck surgery PT and DVT prophylaxis - Patient on full-dose Lovenox for #3. 10/10/24 19:15: WBC 11.9 H, RBC 4.54 L, Hgb 12.6 L, Hct 39.2 L, MCV 86.3, MCH 27.8, MCHC 32.1, RDW Std Deviation 41.7, RDW Coeff of Narcisa 13.4, Plt Count 320, MPV 10.3, Immature Gran % (Auto) 0.300, Neut % (Auto) 72.1 H, Lymph % (Auto) 16.3 L, [place] % (Auto) 10.3 H, Eos % (Auto) 0.6, Baso % (Auto) 0.4, Absolute Neuts (auto) 8.6 H, Absolute Lymphs (auto) 1.94, Nucleated RBC % 0, PT 15.7 H, INR 1.3, APTT 28.5, Sodium 138, Potassium 3.7, Chloride 105, Carbon Dioxide 28.0, Anion Gap 6, BUN 16, Creatinine 1.09, Estim Creat Clear Calc 92.66, Est GFR (MDRD) Af Amer 91, Est GFR (MDRD) Non-Af 75, BUN/Creatinine Ratio 14.7, G lucose 160 H, Hemoglobin A1c 9.5 H, Lactic Acid 1.2, Calcium 8.9, Troponin I High Sens 112 H, B-Natriuretic Peptide 261.1 H 10/10/24 21:27: Troponin I High Sens 105 H 10/11/24 01:54: POC Glucose 152 H 10/11/24 01:59: Troponin I High Sens 99 H 10/11/24 04:20: WBC 12.3 H, RBC 4.83, Hgb 13.2, Hct 42.6, MCV 88.2, MCH 27.3, M CHC 31.0 L, RDW Std Deviation 43.4, RDW Coeff of Narcisa 13.3, Plt Count 350, MPV 10.7, Immature Gran % (Auto) 0.400, Neut % (Auto) 81.8 H, Lymph % (Auto) 12.3 L, [place] % (Auto) 3.9, Eos % (Auto) 1.1, Baso % (Auto) 0.5, Absolute Neuts (auto) 10.1 H, Absolute Lymphs (auto) 1.52, Nucleated RBC % 0, Sodium 135 L, Potassium 3.7, Chloride 99, Carbon Dioxide 28.0, Anion Gap 8, BUN 23 H, Creatinine 1.39 H, Estim Creat Clear Calc 71.00, Est GFR (MDRD) Af Amer 69, Est GFR (MDRD) Non-Af 57 L, BUN/Creatinine Ratio 16.5, Glucose 226 H, Calcium 9.0, Phosphorus 2.8, Magnesium 2.0, Total Bilirubin 0.60, AST 13 L, ALT 20, Alkaline Phosphatase 93, B-Natriuretic Peptide 206.7 H, Total Protein 7.3, A lbumin 3.0 L, Globulin 4.3 H, Albumin/Globulin Ratio 0.7 L, Triglycerides 119 10/11/24 04:20: Triglycerides Cancelled, Cholesterol 146 10/11/24 04:20: Cholesterol Cancelled, LDL Cholesterol 89 10/11/24 04:20: LDL Cholesterol Cancelled, VLDL Cholesterol 24 10/11/24 04:20: VLDL Cholesterol Cancelled, HDL Cholesterol 33 L 10/11/24 04:20: HDL Cholesterol Cancelled, TSH 1.590 10/11/24 07:48: POC Glucose 252 H 10. History of HONK - Noted. Charges/Coding Addendum Addendum: Total time of the visit including total time spent in counseling or coordination of care, (more than 50% of the total time, spent in obtaining medical information from nurses and other ancillary care providers ,explaining to the patient about labs, imaging, diagnosis and management of active complex medical conditions), multiple active issues including COPD exacerbation, CHF exacerbation, recent DVT, uncontrolled diabetes mellitus, review of labs and imaging is 30 minutes. Visit Charges Inpatient E&M: 20561 Subs Hosp L3
[2024-10-11] MEDS: MethylPREDNISolone 125 MG/2 ML Vial 60 MG IV ×2 (08:44→21:47)
[2024-10-11] MEDS: Carvedilol 25 MG Tablet PO ×2 (08:45→17:10)
[2024-10-11] MEDS: amLODIPine 10 MG Tablet PO (08:45)
[2024-10-11] MEDS: Aspirin 81 MG TAB.CHEW PO (08:45)
[2024-10-11] MEDS: Potassium Chloride Oral Tablet 20 MEQ PO ×2 (08:45→17:10)
[2024-10-11] MEDS: Clopidogrel Bisulfate 75 MG Tablet PO (08:46)
[2024-10-11] MEDS: Magnesium Chloride 64 MG Delay Rel.Tablet 128 MG PO ×2 (08:46→21:48)
[2024-10-11] MEDS: Lactobacillis Acidophilus 1 CAP PO ×4 (08:47→21:47)
[2024-10-11] MEDS: Furosemide 40 MG/4 ML Vial IV ×2 (08:47→17:10)
[2024-10-11] MEDS: Insulin Lispro 100 UNIT/ML INSULN.PEN SC ×3 (08:55→16:25)
[2024-10-11] MEDS: Insulin Lispro 100 UNIT/ML INSULN.PEN 15 UNIT SC ×3 (08:55→16:24)
--- NOTE | 2024-10-11 09:15 | CASEMGMT ---
Social Work SW met w/pt as he is listed as self pay. Pt states his is working on Medicaid for them, is open to resources. SW provided to pt the [employer] [place] Card, and information on [employer], Yesica Fritz, [facility] assist, Medicaid application, and a list of prescription assistance programs. SW remains available as needed for additional resources. CECILIA Thakur
--- NOTE | 2024-10-11 09:34 | CASEMGMT ---
VETO LUBIN Assessment: Face to Face with pt for initial transition planning/care coordination assessment. VETO LUBIN introduced self and role at [facility], pt voices understanding and consents to assessment. Pt is A&O x4 and answers all questions appropriately at this time. Pt sitting up in chair in no distress with oxygen on. Care providers, pharmacy, and demographics verified/updated. Admitting Dx: AE COPD, acute bronchitis, AE CHF and resp insuff PCP:Jamir Specialists:Song puljohanna; Sandra, cardio Preferred [facility]acy: [facility] Insurance: Self pay Prescription Benefit: no LNOK: Cassia Morrison, Living Arrangements: Pt lives with and 17 year old son in a second story apt. Pt states he has 21-26 steps to enter with a rail and the steps make him winded. Pt reports he is I in ADLs and denies concerns at home. Transportation: Pt drives self and denies concerns with transportation. DME:nebulizer, BGM with sufficient supply of strips and lancets and insulin with sufficient supply HHC/SNF: Denies hx of Pt states no concerns with going home at time of dc. Discussed with pt options for HHC and pt is not interested as he is self pay. Discussed options of free programs to monitor his CHF and COPD such as [facility] [employer] and [facility] and pt declines. Should pt need dc'd on oxygen, pt agreeable to using [employer], states he has no preference. Pt states no further concerns/needs. CM to follow. Advised pt to ask CM if any further question/concerns/needs arise, voices understanding. Pt Goal: Home Plan: Home, follow for oxygen Joaquin LAWS CM
[2024-10-11] MEDS: Lisinopril 20 MG Tablet PO ×2 (10:46→21:48)
[2024-10-11] MEDS: Isosorbide Mononitrate 60 MG Tablet PO ×2 (10:47→21:48)
[2024-10-11] MEDS: cloNIDine HCl 0.1 MG Tablet PO ×2 (10:47→21:47)
[2024-10-11] MEDS: Ranolazine 500 MG Tablet 1000 MG PO ×2 (10:47→21:48)
[2024-10-11 11:21] LABS: Bedside Glucose 284 mg/dL (74-106)
[2024-10-11] MEDS: Benzonatate 100 MG Capsule 200 MG PO ×2 (14:26→21:47)
[2024-10-11 14:50] LABS: Bedside Glucose 272 mg/dL (74-106)
[2024-10-11 16:46] LABS: Bedside Glucose 358 mg/dL (74-106)
[2024-10-11] MEDS: Ipratropium/Albuterol Sulfate 3 ML AMPUL.NEB INHALATION (19:57)
[2024-10-11] MEDS: Atorvastatin Calcium 80 MG Tablet PO (21:47)
[2024-10-11] MEDS: guaiFENesin/D-Methorphan TAB.SR.12H 2 TABLET PO (21:48)
[2024-10-11] MEDS: APIXABAN 5 MG TABLET PO (21:48)
[2024-10-11] MEDS: Insulin Glargine-YFGN 100 UNIT/ML Pen 45 UNIT SC (21:49)
[2024-10-11] MEDS: Doxycycline 100 MG in Dextrose 5%-Water (250mL Bag) 250 ML IV (21:50)
[2024-10-11 23:09] LABS: Bedside Glucose 268 mg/dL (74-106)
[2024-10-12] VITALS (14 sets, daily range): BP systolic 107–144; BP diastolic 66–89; PULSE 74–87; RESP 16–20; TEMP 36.5–36.6; O2SAT 93–98; BMI 35.7
[2024-10-12] MEDS: Benzonatate 100 MG Capsule 200 MG PO ×3 (05:12→21:28)
[2024-10-12 06:15] LABS: Absolute Lymphocyte Count 1.49 X10^3/uL (0.83-4.51); Hematocrit 40.3 % (40-54); Hemoglobin 12.9 g/dL (13.0-16.5); Lymphocyte # 1.49 X10^3/ul (0.83-4.51); Lymphocyte % 10.6 % (19-41); Mean Corpuscular Hgb 27.6 pg (27.0-32.0); Mean Corpuscular Volume 86.1 fL (80-94); Mean Platelet Vol. 11.1 fl (6.2-12.0); Monocyte% 3.6 % (0-10); NRBC Flagged by Analyzer 0 % (0-5); Neutrophil # 11.95 X10^3/uL (2.7-7.7); Neutrophil % 84.9 % (47-70); Platelet Count 378 K/mm3 (150-450); RBC Distribution Width SD 40.6 fl (35.1-43.9); Red Blood Count 4.68 M/mm3 (4.6-6.2); White Blood Count 14.1 K/mm3 (4.4-11.0)
[2024-10-12 07:02] LABS: ALB/GLOB Ratio 0.6 RATIO (0.9-2.4); AST(SGOT) 7 U/L (15-37); Alanine Aminotransfer ALT/SGPT 20 U/L (16-61); Albumin, Serum 2.7 g/dL (3.2-5.0); Alkaline Phosphatase 87 U/L (45-117); Anion Gap 9 (5-15); BUN 34 mg/dL (7-18); Calcium,Total 9.2 mg/dL (8.5-10.1); Chloride 99 mmol/L (98-107); Creatinine, Serum 1.26 mg/dL (0.70-1.30); EST Glomerular Filtration Rate 64 mL/min (>60); Est Glom Filt Rate - Afr Amer 77 mL/min (>60); Estimated Creatinine Clearance 80.25 ml/min; Globulin 4.2 g/dL (2.2-4.2); Glucose 375 mg/dL (74-106); Magnesium 1.9 mg/dL (1.6-2.6); Phosphorus 3.3 mg/dL (2.5-4.9); Protein, Total 6.9 g/dL (6.4-8.2); Sodium Level 133 mmol/L (136-145)
[2024-10-12] MEDS: Ipratropium/Albuterol Sulfate 3 ML AMPUL.NEB INHALATION ×5 (07:30→23:04)
[2024-10-12 08:09] LABS: BNP,B-Type NATRIURETIC PEPTIDE 148.6 pg/mL (0-100)
[2024-10-12] MEDS: APIXABAN 5 MG TABLET PO ×2 (08:27→21:27)
[2024-10-12] MEDS: Aspirin 81 MG TAB.CHEW PO (08:27)
[2024-10-12] MEDS: Lactobacillis Acidophilus 1 CAP PO ×4 (08:27→21:27)
[2024-10-12] MEDS: Carvedilol 25 MG Tablet PO ×2 (08:28→16:53)
[2024-10-12] MEDS: Magnesium Chloride 64 MG Delay Rel.Tablet 128 MG PO ×2 (08:28→21:27)
[2024-10-12] MEDS: Potassium Chloride Oral Tablet 20 MEQ PO ×2 (08:28→16:53)
[2024-10-12] MEDS: cloNIDine HCl 0.1 MG Tablet PO ×2 (08:29→21:28)
[2024-10-12] MEDS: Clopidogrel Bisulfate 75 MG Tablet PO (08:29)
[2024-10-12] MEDS: Insulin Lispro 100 UNIT/ML INSULN.PEN SC ×2 (08:30→11:24)
[2024-10-12] MEDS: MethylPREDNISolone 125 MG/2 ML Vial 60 MG IV ×2 (08:30→21:26)
[2024-10-12] MEDS: Furosemide 40 MG/4 ML Vial IV ×2 (08:30→16:54)
[2024-10-12] MEDS: Insulin Lispro 100 UNIT/ML INSULN.PEN 20 UNIT SC ×2 (08:31→11:24)
[2024-10-12] MEDS: 0.9% Saline Lock 10 ML Syringe IV ×4 (08:36→21:27)
[2024-10-12 08:52] LABS: Bedside Glucose 342 mg/dL (74-106)
[2024-10-12] MEDS: guaiFENesin/D-Methorphan TAB.SR.12H 2 TABLET PO ×2 (10:19→21:28)
[2024-10-12] MEDS: Doxycycline 100 MG in Dextrose 5%-Water (250mL Bag) 250 ML 250 MG IV (10:19)
[2024-10-12] MEDS: Lisinopril 20 MG Tablet PO (10:20)
[2024-10-12] MEDS: Ranolazine 500 MG Tablet 1000 MG PO ×2 (10:20→21:27)
[2024-10-12] MEDS: Isosorbide Mononitrate 60 MG Tablet PO ×2 (10:20→21:27)
[2024-10-12] MEDS: amLODIPine 10 MG Tablet PO (10:21)
[2024-10-12 11:45] LABS: Bedside Glucose 448 mg/dL (74-106)
--- NOTE | 2024-10-12 13:18 | PN.HOSP_ITS ---
Reason for Visit Reason for Visit: Diagnoses Heart failure, unspecified (10/11/24) Acute bronchitis, unspecified (10/11/24) Chronic obstructive pulmonary disease with (acute) exacerbation (10/11/24) Other abnormalities of breathing (10/11/24) Other specified abnormal findings of blood chemistry (10/11/24) Objective Data Objective Data Vital Signs: Vital Signs Temp Pulse Resp BP Pulse Ox O2 Del Method O2 Flow Rate 97.8 F 81 17 107/66 94 Nasal Cannula 2 10/12/24 10:15 10/12/24 11:24 10/12/24 11:24 10/12/24 10:15 10/12/24 10:15 10/12/24 10:15 10/12/24 10:15 Oxygen Flow Rate (L/min) 2 Oxygen Delivery Method Nasal Cannula Weight: 235 lb 0.204 oz Body Mass Index (BMI) 35.7 Intake & Output: Intake and Output for Last 24 Hours 10/10/24 10/11/24 10/12/24 23:59 23:59 23:59 Intake Total 1728 / 2088 1360 / 1360 Output Total 1200 / 1800 1175 / 1175 Balance 528 / 288 185 / 185 Lab / Micro Data 10/12/24 04:46 10/12/24 04:46 Labs: Laboratory Results - last 24 hr 10/11/24 14:29: POC Glucose 272 H 10/11/24 16:22: POC Glucose 358 H 10/11/24 21:38: POC Glucose 268 H 10/12/24 04:46: WBC 14.1 H, RBC 4.68, Hgb 12.9 L, Hct 40.3, MCV 86.1, MCH 27.6, MCHC 32.0, RDW Std Deviation 40.6, RDW Coeff of Narcisa 13.0, Plt Count 378, MPV 11.1, Immature Gran % (Auto) 0.900, Neut % (Auto) 84.9 H, Lymph % (Auto) 10.6 L, [place] % (Auto) 3.6, Eos % (Auto) 0.0, Baso % (Auto) 0.0, Absolute Neuts (auto) 12.0 H, Absolute Lymphs (auto) 1.49, Nucleated RBC % 0, Sodium 133 L, Potassium 4.0, Chloride 99, Carbon Dioxide 25.0, Anion Gap 9, BUN 34 H, Creatinine 1.26, Estim Creat Clear Calc 80.25, Est GFR (MDRD) Af Amer 77, Est GFR (MDRD) Non-Af 64, BUN/Creatinine Ratio 27.0 H, Glucose 375 H, Calcium 9.2, Phosphorus 3.3, Magnesium 1.9, Total Bilirubin 0.40, AST 7 L, ALT 20, Alkaline Phosphatase 87, B -Natriuretic Peptide 148.6 H, Total Protein 6.9, Albumin 2.7 L, Globulin 4.2, A lbumin/Globulin Ratio 0.6 L 10/12/24 08:25: POC Glucose 342 H 10/12/24 11:22: POC Glucose 448 H Micro: Microbiology 10/10/24 07:58 Sputum, Expectorated/Coughed Gram Stain - Final 10/10/24 07:58 Sputum, Expectorated/Coughed Respiratory Culture - Preliminary Appears to be normal respiratory katya. Further studies to follow. 10/11/24 01:31 Mucosa - Nasopharyngeal Respiratory Panel (PCR) - Final Physical Exam Narrative Seen and examined. Patient asking for discharge but still has significant leg swelling and shortness of breath on exertion. He states that he is feeling better and wants to go home. He has a job interview tomorrow AM. Physical exam General: Alert, Oriented x3, Cooperative. BMI 35.7 kg/m? HEENT: Atraumatic, PERRLA, EOMI, Normocephalic Oral: No Gingival or Mucosal Lesions/ Ulcerations Neck: Supple, No JVD, Negative Carotid Bruits Chest wall/Lungs: Air entry improved but still diminished bilaterally. Bilateral expiratory rhonchi and wheezing. No tachypnea on 2 L of oxygen. Cardiovascular: Regular rate, Regular Rhythm, Normal S1, Normal S2, No M/G/R Abdomen: Bowel Sounds Present, Soft, Non Tender, Non-Distended : No dysuria. No renal angle tenderness. No suprapubic tenderness. Extremities: 3+ bilateral pitting edema above knee level, Capillary Refill Less than 3 Seconds Skin: No rashes, No breakdown Musculoskeletal: No Tenderness to Palpation of Joints or Extremities Neurological: Cranial nerves II-XII grossly intact, DTR 2+/4. No acute focal neurological deficit. Psych/Mental Status: Normal Affect, Appropriate. Assessment & Plan Assessment/Plan (1) COPD exacerbation: (2) Congestive heart failure: QUALIFIERS: Heart failure type: unspecified Heart failure chronicity: acute on chronic Qualified Code(s): I50.9 - Heart failure, unspecified (3) Obesity (BMI 30.0-34.9): (4) Essential hypertension: (5) Insulin dependent diabetes mellitus: PLAN: Plan 54-year-old gentleman admitted with gradual worsening of SOB for 2 months along with coughing up thick brownish sputum, subjective fever, T99 Fahrenheit. SOB worse on laying flat with aches and pain in chest and back. Recently diagnosed with bilateral DVT on Eliquis on 09/25/2020. He quit smoking on past Sunday, 2 days ago before admission. 1. AE COPD plus acute Bronchitis with history of chronic cigarette smoking and acute hypoxic- Admit to PCU. Start treatment with empiric IV Doxycycline and IV Solumedrol plus scheduled and prn nebulizers. Stated he quit smoking on 10/09/2024. Nicotine offered. Respiratory panel is negative. Sputum culture pending. Triple PCR for SARS-CoV-2, flu and RSV are negative on 09/25/202010/12: Patient still has decreased air entry and wheezing therefore advised to stay. He was asking for discharge today and when denied for tomorrow otherwise he will sign AMA. I tried to convince him and later he agreed after talking to his . 2. Acute on chronic HFpEF with chest imaging consistent with pulmonary vascular congestion and elevated BNP of 261.1 pg/mL present on admission: On furosemide 40 mg IV twice daily with potassium supplement and magnesium. Recent echocardiogram done 12/2023 revealed moderate concentric LVH with normal LV size, and LVEF ~50%. Loop Cutter consulted. Heart failure core measures including intake and output, fluid restriction less than 1500 mL, daily weight monitoring, kidney and electrolytes monitoring. 10/12: Discussed with the dairy cattle farm worker. Continue diuretics. Patient still has significant leg swelling 3. CAD, non-STEMI status post multiple stents: Troponins are elevated 105. Patient denies chest pain or pressure but has chest congestion from COPD exacerbation and cough and chronic angina on ranolazine. On aspirin, Plavix, ranolazine and full dose of Lovenox. Echo 12/2023 Interpretation Summary The estimated ejection fraction is 50 %. Moderate concentric left ventricular hypertrophy. Compared to prior study, there is no significant change. 10/12: Troponins are decreasing trends and patient does not have chest pain pressure or anginal-like pain therefore ACS ruled out. Loop Cutter reviewed the images of echo. Cardiology consult discontinued 5. Recent subacute bilateral LE DVT's; on apixaban on 09/25/2020:- Hold Eliquis and give full-dose Lovenox in light of #3. 6. Obesity grade 2 obesity; with BMI of 35.7 KG per square 7. Essential hypertension; on coreg, lisinopril and clonidine - Maintain current regimen plus give prn IV Hydralazine for systolic blood pressure > 160 mmHg. 8. Hyperlipidemia; on high-dose atrovastatin -FLP LDL 89, VLDL 24, HDL 33. Resume statin 9. IDDM; of unknown control on degludec and humalog TID - ADA/Cardiac diet. FSBS q. AC/HS plus SSI. Continue the home dose of insulin as patient is on IV Solu-Medrol. 10. OA; with chronic Left shoulder pain and history of neck surgery PT and DVT prophylaxis -patient was refusing for Lovenox therefore changed back to oral home dose of Eliquis. Charges/Coding Visit Charges Inpatient E&M: 89265 Subs Hosp L2
[2024-10-12 13:37] LABS: Bedside Glucose 338 mg/dL (74-106)
[2024-10-12] MEDS: Albuterol 2.5 MG/3 ML VIAL.NEB. INHALATION (14:10)
--- NOTE | 2024-10-12 14:43 | EKG12_ITS ---
Test Reason : RHYTHM CHG Blood Pressure : */* mmHG Vent. Rate : 81 BPM Atrial Rate : 81 BPM P-R Int : 164 ms QRS Dur : 112 ms QT Int : 406 ms P-R-T Axes : 57 37 70 degrees QTcB Int : 471 ms Normal sinus rhythm Possible Left atrial enlargement Anterior infarct , age undetermined Abnormal ECG When compared with ECG of 10-Oct-2024 19:58, MANUAL COMPARISON REQUIRED DATA IS UNCONFIRMED Confirmed by Harvey Murphy ([id number]), features editor EVELIO CURRY ([id number]) on 10/13/2024 9:57:29 AM Referred By: Confirmed By: Harvey Murphy
--- NOTE | 2024-10-12 14:59 | PCM.HOSP.N ---
Hospitalist Note Rapid response team called. Patient sitting up in a chair and then had a coughing fit and then had a syncopal episode. Patient apparently had a mild 1 earlier by the rapid response team was not called when he was coughing. By time I arrived patient was awake and alert and feeling fine. He stated this been going on for years that he get these coughing fits and passes out but it does not happen while he drives or rides his motorcycle. Had an EKG that showed normal sinus rhythm without any acute changes. Telemetry was reviewed by Dr. Mars which showed just very occasional PVC but nothing to be the cause of this episode. This appeers to be vasovagal mediated due to his coughing. Looking at his medications he is on lisinopril 20 mg twice daily. I asked he and his , who is at bedside, if he was coughing before. They do not recall that being an issue previous to that. I discussed with he and his that discontinue the lisinopril as it may be contributing to this cough. Told him it is unclear but to give it a month and if he is still coughing at that time they then we can presume that it is not due to lisinopril but if it goes away then the lisinopril is causing his cough. I did tell the patient that if he is having these episodes when he is coughing that he should not drive. He states that when he drives or rides his motorcycle he never coughs. Told that maybe is just moving air that may help him and that maybe to have a fan at home to help.
[2024-10-12 15:06] LABS: Bedside Glucose 229 mg/dL (74-106)
[2024-10-12 17:05] LABS: Bedside Glucose 79 mg/dL (74-106)
[2024-10-12] MEDS: Atorvastatin Calcium 80 MG Tablet PO (21:27)
[2024-10-12] MEDS: Doxycycline 100 MG CAPSULE PO (21:30)
[2024-10-12] MEDS: Insulin Glargine-YFGN 100 UNIT/ML Pen 55 UNIT SC (21:30)
[2024-10-12 22:08] LABS: Bedside Glucose 197 mg/dL (74-106)
[2024-10-12] MEDS: guaiFENesin 1,200 MG Tablet 1200 MG PO (22:36)
[2024-10-13] VITALS (8 sets, daily range): BP systolic 119–164; BP diastolic 65–109; PULSE 77–92; RESP 16–20; TEMP 36.4–36.8; O2SAT 89–99; BMI 37.1
[2024-10-13] MEDS: Benzonatate 100 MG Capsule 200 MG PO (04:13)
[2024-10-13] MEDS: Ipratropium/Albuterol Sulfate 3 ML AMPUL.NEB INHALATION ×2 (06:08→10:57)
[2024-10-13 06:31] LABS: Absolute Lymphocyte Count 1.69 X10^3/uL (0.83-4.51); Absolute Neutrophil Count 17.9 X10^3/uL (2.0-7.7); Basophil# 0.03 X10^3/uL; Basophil% 0.1 % (0-1); Hematocrit 40.8 % (40-54); Hemoglobin 12.9 g/dL (13.0-16.5); Lymphocyte # 1.69 X10^3/ul (0.83-4.51); Lymphocyte % 8.3 % (19-41); Mean Corp Hgb Conc 31.6 g/dL (32-36); Mean Corpuscular Hgb 27.7 pg (27.0-32.0); Mean Corpuscular Volume 87.6 fL (80-94); Mean Platelet Vol. 10.9 fl (6.2-12.0); Monocyte# 0.62 X10^3/uL; NRBC Flagged by Analyzer 0 % (0-5); Neutrophil # 17.89 X10^3/uL (2.7-7.7); Neutrophil % 87.6 % (47-70); Platelet Count 375 K/mm3 (150-450); RBC Distribution Width CV 13.2 % (11.6-14.6); RBC Distribution Width SD 42.4 fl (35.1-43.9); Red Blood Count 4.66 M/mm3 (4.6-6.2); White Blood Count 20.4 K/mm3 (4.4-11.0)
[2024-10-13 06:57] LABS: Anion Gap 4 (5-15); BUN 43 mg/dL (7-18); BUN/Creat Ratio 32.6 RATIO (10-20); Calcium,Total 8.9 mg/dL (8.5-10.1); Chloride 105 mmol/L (98-107); Creatinine, Serum 1.32 mg/dL (0.70-1.30); EST Glomerular Filtration Rate 60 mL/min (>60); Est Glom Filt Rate - Afr Amer 73 mL/min (>60); Estimated Creatinine Clearance 78.14 ml/min; Glucose 271 mg/dL (74-106); Potassium 4.6 mmol/L (3.5-5.1); Sodium Level 135 mmol/L (136-145)
[2024-10-13 08:46] LABS: Bedside Glucose 262 mg/dL (74-106)
[2024-10-13] MEDS: Insulin Lispro 100 UNIT/ML INSULN.PEN SC ×2 (09:11→11:45)
[2024-10-13] MEDS: Insulin Lispro 100 UNIT/ML INSULN.PEN 20 UNIT SC ×2 (09:11→11:46)
[2024-10-13] MEDS: Magnesium Chloride 64 MG Delay Rel.Tablet 128 MG PO (09:13)
[2024-10-13] MEDS: Isosorbide Mononitrate 60 MG Tablet PO (09:13)
[2024-10-13] MEDS: guaiFENesin/D-Methorphan TAB.SR.12H 2 TABLET PO (09:13)
[2024-10-13] MEDS: guaiFENesin 1,200 MG Tablet 1200 MG PO (09:13)
[2024-10-13] MEDS: cloNIDine HCl 0.1 MG Tablet PO (09:14)
[2024-10-13] MEDS: Potassium Chloride Oral Tablet 20 MEQ PO (09:14)
[2024-10-13] MEDS: Aspirin 81 MG TAB.CHEW PO (09:15)
[2024-10-13] MEDS: APIXABAN 5 MG TABLET PO (09:15)
[2024-10-13] MEDS: Doxycycline 100 MG CAPSULE PO (09:15)
[2024-10-13] MEDS: Carvedilol 25 MG Tablet PO (09:15)
[2024-10-13] MEDS: Furosemide 40 MG/4 ML Vial IV (09:16)
[2024-10-13] MEDS: Clopidogrel Bisulfate 75 MG Tablet PO (09:17)
[2024-10-13] MEDS: Ranolazine 500 MG Tablet 1000 MG PO (09:17)
[2024-10-13] MEDS: MethylPREDNISolone 125 MG/2 ML Vial 60 MG IV (09:18)
[2024-10-13 12:17] LABS: Bedside Glucose 370 mg/dL (74-106)
--- NOTE | 2024-10-13 13:03 | PCM.DC ---
Discharge Instructions Diet Discharge Diet: 1800 Calorie Control Diet DC O2, CPAP, BIPAP needs RN Home O2 Qualification: Home O2 Qualification: Is the patient on home oxygen No 10/13/24 10:00 Home O2 Qualification: AT REST 1- Pulse Ox at rest 91 10/13/24 10:00 Home O2 Qualification: WITH AMBULATION 1- Pulse Ox with ambulation 89 10/13/24 10:00 1- Oxygen Flow Rate with 0 10/13/24 10:00 ambulation Additional Home O2 Discharge instructions: No Dressing / Incision Discharge Activity: Return to Normal Activity Return to work on:: 10/15/24 Weight Bearing Status: Full weight bearing Follow Up Care Test Results: Test results from this visit will be discussed in further detail at your follow-up appointment, if applicable. Discharge Plan Admission Admit Date/Time: 10/11/24 00:34 Primary Reason for Your Visit: COPD exacerbation, acute on chronic congestive heart failure Attending Provider: Manuelito Green Primary Care Provider: Sivan Bowie Consulting Providers: Mitchell Deras; Nasim Leblanc Instructions Forms: Work / School Excuse Discharge Orders/Prescriptions Prescriptions: New nicotine 14 mg/24 hr Patch 24 Hour 14 mg transdermal DAILY Qty: 30 0RF potassium chloride 20 mEq Tablet,Er Particles/Crystals 20 meq PO BIDCM Qty: 60 0RF doxycycline monohydrate 100 mg Capsule 100 mg PO BID Qty: 10 0RF insulin lispro [Humalog KwikPen Insulin] 100 unit/mL Insulin Pen 20 unit subcut TIDAC Qty: 0 0RF guaifenesin [Mucus Relief ER] 1,200 mg Tablet Extended Release 12hr 1,200 mg PO BID Qty: 14 0RF furosemide [Lasix] 20 mg tablet 60 mg PO DAILY Qty: 90 0RF prednisone 20 mg tablet 20 mg PO BID Qty: 11 0RF Rx Instructions: 1 twice a day for 3 days, then 1 daily for 3 days, then one half daily for 4 days then stop benzonatate 200 mg capsule 200 mg PO TID PRN (Reason: cough) Qty: 15 0RF Continued atorvastatin 80 mg tablet 80 mg PO QHS Qty: 90 1RF insulin degludec [Tresiba FlexTouch U-200] 200 unit/mL (3 mL) insulin pen 50 unit SUBCUT QHS 90 Days Qty: 22.5 1RF clopidogrel [Plavix] 75 mg tablet 75 mg PO DAILY Qty: 90 3RF isosorbide mononitrate 60 mg tablet extended release 24 hr 60 mg PO BID Qty: 180 3RF aspirin 81 MG tablet,chewable 81 mg PO DAILY loratadine 10 mg tablet 10 mg PO DAILY PRN (Reason: allergies) albuterol sulfate [Ventolin HFA] 90 mcg/actuation HFA aerosol inhaler 2 puff inhalation Q4H PRN PRN (Reason: Wheezing) Qty: 1 0RF Eliquis 5 mg tablet 5 mg PO BID Qty: 74 0RF Rx Instructions: 10 mg twice a day for the first week. Then 5 mg twice a day. carvedilol 25 mg tablet 25 mg PO BIDCM Qty: 180 3RF clonidine HCl 0.1 mg tablet 0.1 mg PO BID Qty: 180 3RF amlodipine 10 mg tablet 10 mg PO DAILY Qty: 90 3RF ranolazine 1,000 mg tablet extended release 12 hr 1,000 mg PO BID Qty: 60 11RF nitroglycerin 0.4 mg tablet, sublingual 0.4 mg sublingual Q5-15M Qty: 25 3RF albuterol sulfate 90 mcg/actuation HFA aerosol inhaler 2 puff INHALATION 4X/DAY PRN (Reason: Shortness Of Breath) Qty: 8.5 0RF Discontinued levofloxacin 750 mg tablet 750 mg PO DAILY Qty: 7 0RF Humalog KwikPen Insulin 200 unit/mL (3 mL) insulin pen 14 unit subcut TIDCM Rx Instructions: inject 14 units subcutaneously three times a day (SEE PROTOCOL) No Action lisinopril 20 mg tablet 20 mg PO BID Qty: 180 3RF Referrals / Follow Up: Mal Mcdonnell PA [Med Staff - Adv Practice Prof] - 10/29/24 10:30 am
--- NOTE | 2024-10-13 13:33 | DS.PCM_ITS ---
Providers Date of Admission: 10/11/24 Date of Discharge: 10/13/24 Primary Care Physician: Dr. Sivan Bowie MD Reason For Visit: AE COPD, ACUTE BRONCHITIS, AE CHF & RESP INSUFF Diagnosis Discharge Diagnosis (1) COPD exacerbation: Status: Chronic Code(s): J44.1 - Chronic obstructive pulmonary disease with (acute) exacerbation (2) Congestive heart failure: Status: Acute Code(s): I50.9 - Heart failure, unspecified Qualifiers: Heart failure chronicity: acute on chronic Heart failure type: u nspecified Qualified Code(s): I50.9 - Heart failure, unspecified (3) Obesity (BMI 30.0-34.9): Status: Chronic Code(s): E66.9 - Obesity, unspecified (4) Essential hypertension: Status: Chronic Code(s): I10 - Essential (primary) hypertension (5) Insulin dependent diabetes mellitus: Status: Chronic Plan: Final diagnosis: #1 exacerbation of COPD #2 acute bronchitis #3 acute on chronic congestive heart failure with preserved ejection fraction #4 coronary artery disease #5 elevated troponin-not diagnostic of aac-[id number] unclear Medications at Discharge Home Medications aspirin 81 mg chewable tablet 81 mg PO DAILY [facility] 04/27/22 loratadine 10 mg tablet 10 mg PO DAILY PRN allergies 06/26/22 carvedilol 25 mg tablet 25 mg PO BIDCM [facility] #180 tabs 04/24/23 clonidine HCl 0.1 mg tablet 0.1 mg PO BID blood pressure #180 tabs 04/24/23 amlodipine 10 mg tablet 10 mg PO DAILY blood pressure #90 tabs 06/25/23 lisinopril 20 mg tablet 20 mg PO BID blood pressure #180 tabs 11/26/23 atorvastatin 80 mg tablet 80 mg PO QHS cholesterol #90 tabs 12/28/23 insulin degludec 200 unit/mL (3 mL) subcutaneous pen (Tresiba FlexTouch U-200 insulin) 50 unit (0.25 mL) subcut QHS blood sugar 3 months #22.5 mL 12/28/23 ranolazine 1,000 mg tablet,extended release,12 hr 1,000 mg PO BID heart #60 tabs 01/03/24 clopidogrel 75 mg tablet (Plavix) 75 mg PO DAILY anti platelet #90 tabs 01/15/24 isosorbide mononitrate 60 mg tablet,extended release 24 hr 60 mg PO BID heart #180 TABLETS 01/15/24 nitroglycerin 0.4 mg sublingual tablet 0.4 mg sublingual Q5-15M chest pain #25 tabs 07/22/24 albuterol sulfate 90 mcg/actuation aerosol inhaler 2 puff inhalation 4X/DAY PRN Shortness Of Breath #8.5 grams 09/01/24 albuterol sulfate 90 mcg/actuation aerosol inhaler (Ventolin HFA) 2 puff inhalation Q4H PRN PRN Wheezing ##1 09/25/24 apixaban 5 mg tablet (Eliquis) 5 mg PO BID #74 tabs 09/25/24 benzonatate 200 mg capsule 200 mg PO TID PRN cough #15 caps 10/13/24 doxycycline monohydrate 100 mg capsule 100 mg PO BID #10 caps 10/13/24 furosemide 20 mg tablet (Lasix) 60 mg (3 x 20 mg) PO DAILY #90 tabs 10/13/24 guaifenesin 1,200 mg tablet, extended release 12 hr (Mucus Relief ER) 1,200 mg PO BID #14 tabs 10/13/24 insulin lispro 100 unit/mL subcutaneous pen (Humalog KwikPen (U-100) Insulin) 20 unit (0.2 mL) subcut TIDAC #0 mL 10/13/24 nicotine 14 mg/24 hr daily transdermal patch 14 mg transdermal DAILY #30 ea 10/13/24 potassium chloride 20 mEq tablet,extended release(part/cryst) 20 meq PO BIDCM #60 tabs 10/13/24 prednisone 20 mg tablet 20 mg PO BID #11 tabs 10/13/24 Hospital Course Operations None Procedures None Summary of Care Provided Minutes Spent on Discharge: 31 Hospital Course: This 54-year-old white male was seen in the emergency room at [facility] with complaints of shortness of breath and yellow sputum production. Patient stated his shortness of breath was worse when he was lying flat. CBC revealed a white blood cell count of 11.9, hemoglobin was 12.6, chemistry profile was unremarkable, beta natruretic peptide was elevated at 261, troponin was elevated at 112, CTA showed mild bibasilar interstitial edema or infiltrates, no evidence of pulmonary embolus was noted. Patient was admitted to PCU for acute exacerbation of COPD and acute on chronic congestive heart failure with preserved ejection fraction, he was treated with IV Lasix and aerosol treatments, patient was also placed on IV doxycycline for bronchitis. Patient improved over his hospital stay, on 10/13/2024, patient was seen and examined: On examination he appeared in good health and spirits. Vital signs as documented. Skin warm and dry and without overt rashes. Neck without JVD, neck was supple, trachea midline, thyroid was normal. Lungs clear bilaterally, normal air movement was noted. Heart exam notable for regular rhythm, normal sounds and absence of murmurs, rubs or gallops. Abdomen unremarkable and without evidence of organomegaly, masses, or abdominal aortic enlargement. Bowel sounds are present, abdomen is not distended. Extremities nonedematous, no cyanosis was noted, no clubbing was noted. Neuro: Cranial nerves II through XII are grossly intact, no focal motor deficits were noted, sensation to light touch and pinprick intact, motor exam 5/5 throughout. Psych: Patient is alert and oriented x3, he does not appear anxious or depressed, he does not appear agitated. Patient was discharged home in stable condition on 10/13/2024. Weight / BMI Weight Weight: 110.8 kg Body Mass Index (BMI) 37.1 ABG / Lab / Microbiology Data 10/13/24 05:41 10/13/24 05:41 Laboratory: Laboratory Results - last 24 hr 10/12/24 13:17: POC Glucose 338 H 10/12/24 14:47: POC Glucose 229 H 10/12/24 16:45: POC Glucose 79 10/12/24 21:19: POC Glucose 197 H 10/13/24 05:41: WBC 20.4 H, RBC 4.66, Hgb 12.9 L, Hct 40.8, MCV 87.6, MCH 27.7, MCHC 31.6 L, RDW Std Deviation 42.4, RDW Coeff of Narcisa 13.2, Plt Count 375, MPV 10.9, Immature Gran % (Auto) 1.000 H, Neut % (Auto) 87.6 H, Lymph % (Auto) 8.3 L , Gilchrist % (Auto) 3.0, Eos % (Auto) 0.0, Baso % (Auto) 0.1, Absolute Neuts (auto) 17.9 H, Absolute Lymphs (auto) 1.69, Nucleated RBC % 0, Sodium 135 L, Potassium 4.6, Chloride 105, Carbon Dioxide 26.0, Anion Gap 4 L, BUN 43 H, Creatinine 1.32 H, Estim Creat Clear Calc 78.14, Est GFR (MDRD) Af Amer 73, Est GFR (MDRD) Non- Af 60, BUN/Creatinine Ratio 32.6 H, Glucose 271 H, Calcium 8.9 10/13/24 08:26: POC Glucose 262 H 10/13/24 11:42: POC Glucose 370 H Microbiology: Microbiology 10/10/24 07:58 Sputum, Expectorated/Coughed Gram Stain - Final 10/10/24 07:58 Sputum, Expectorated/Coughed Respiratory Culture - Final 10/11/24 01:31 Mucosa - Nasopharyngeal Respiratory Panel (PCR) - Final D/C Instructions Discharge Diet: 1800 Calorie Control Diet Return to work on: 10/15/24 Weight Bearing Status: Full weight bearing DC O2, CPAP, BIPAP Needs RN Home O2 Qualification: Home O2 Qualification: Is the patient on home oxygen No 10/13/24 10:00 Home O2 Qualification: AT REST 1- Pulse Ox at rest 91 10/13/24 10:00 Home O2 Qualification: WITH AMBULATION 1- Pulse Ox with ambulation 89 10/13/24 10:00 1- Oxygen Flow Rate with 0 10/13/24 10:00 ambulation Additional Home O2 Discharge instructions: No DC home with Oxygen: No Meaningful Use Info Meaningful Use Meaningful Use Diagnoses (Choose all that apply): CHF CHF MIO/ARB ordered at discharge?: Yes Documented LVEF (%): 50 Ischemic Stroke Statin Dosing Therapy Reference: STATIN DOSE THERAPY REFERENCE: * Patients > 75 years receive moderate or high dose statin therapy. * Patients 75 years or YOUNGER should receive HIGH intensity statin dose unless contraindicated. You will be required to document reason for non-treatment if statin daily dose does not meet guidelines. HIGH DOSE STATIN THERAPY DAILY Atorvastatin > than or = to 40 mg Rosuvastatin > than or = to 20 mg Amlodipine + Atorvastatin > than or = to 2.5/40 mg Ezetimibe + Simvastatin 10/80 mg Simvastatin 80mg Discharge Plan Admission Admit Date/Time: 10/11/24 00:34 Primary Reason for Your Visit: COPD exacerbation, acute on chronic congestive heart failure Attending Provider: Manuelito Green Primary Care Provider: Sivan Bowie Consulting Providers: Mitchell Deras; Nasim Leblanc Instructions Forms: Work / School Excuse Discharge Orders/Prescriptions Prescriptions: New nicotine 14 mg/24 hr Patch 24 Hour 14 mg transdermal DAILY Qty: 30 0RF potassium chloride 20 mEq Tablet,Er Particles/Crystals 20 meq PO BIDCM Qty: 60 0RF doxycycline monohydrate 100 mg Capsule 100 mg PO BID Qty: 10 0RF insulin lispro [Humalog KwikPen Insulin] 100 unit/mL Insulin Pen 20 unit subcut TIDAC Qty: 0 0RF guaifenesin [Mucus Relief ER] 1,200 mg Tablet Extended Release 12hr 1,200 mg PO BID Qty: 14 0RF furosemide [Lasix] 20 mg tablet 60 mg PO DAILY Qty: 90 0RF prednisone 20 mg tablet 20 mg PO BID Qty: 11 0RF Rx Instructions: 1 twice a day for 3 days, then 1 daily for 3 days, then one half daily for 4 days then stop benzonatate 200 mg capsule 200 mg PO TID PRN (Reason: cough) Qty: 15 0RF Continued atorvastatin 80 mg tablet 80 mg PO QHS Qty: 90 1RF insulin degludec [Tresiba FlexTouch U-200] 200 unit/mL (3 mL) insulin pen 50 unit SUBCUT QHS 90 Days Qty: 22.5 1RF clopidogrel [Plavix] 75 mg tablet 75 mg PO DAILY Qty: 90 3RF isosorbide mononitrate 60 mg tablet extended release 24 hr 60 mg PO BID Qty: 180 3RF aspirin 81 MG tablet,chewable 81 mg PO DAILY loratadine 10 mg tablet 10 mg PO DAILY PRN (Reason: allergies) albuterol sulfate [Ventolin HFA] 90 mcg/actuation HFA aerosol inhaler 2 puff inhalation Q4H PRN PRN (Reason: Wheezing) Qty: 1 0RF Eliquis 5 mg tablet 5 mg PO BID Qty: 74 0RF Rx Instructions: 10 mg twice a day for the first week. Then 5 mg twice a day. carvedilol 25 mg tablet 25 mg PO BIDCM Qty: 180 3RF clonidine HCl 0.1 mg tablet 0.1 mg PO BID Qty: 180 3RF amlodipine 10 mg tablet 10 mg PO DAILY Qty: 90 3RF ranolazine 1,000 mg tablet extended release 12 hr 1,000 mg PO BID Qty: 60 11RF nitroglycerin 0.4 mg tablet, sublingual 0.4 mg sublingual Q5-15M Qty: 25 3RF albuterol sulfate 90 mcg/actuation HFA aerosol inhaler 2 puff INHALATION 4X/DAY PRN (Reason: Shortness Of Breath) Qty: 8.5 0RF Discontinued levofloxacin 750 mg tablet 750 mg PO DAILY Qty: 7 0RF Humalog KwikPen Insulin 200 unit/mL (3 mL) insulin pen 14 unit subcut TIDCM Rx Instructions: inject 14 units subcutaneously three times a day (SEE PROTOCOL) No Action lisinopril 20 mg tablet 20 mg PO BID Qty: 180 3RF Referrals / Follow Up: Mal Mcdonnell PA [Med Staff - Adv Practice Prof] - 10/29/24 10:30 am Disposition Disposition (needs filled in before D/C Order can be placed): Home, Self Care Charges/Coding Visit Charges Inpatient E&M: 15620 Disch Hosp >30min
--- NOTE | 2024-10-13 14:06 | CASEMGMT ---
Patient has order for discharge. RN CM in to inquire about needs at discharge. Patient and have concern about cost of medicaitons. RN TRISTIAN called [facility] and cost for medication without OTC meds is $50.17 with [facility]. RN CM updated patient and wif and they are able to afford medications. inquired about completed medicaid and if it would be submitted or if they would need to take themselves. RN CM updated SW and SW will assist in submitting Medicaid application, updated. Patient and declined further needs or help at discharge. Patient and had no further questions or concerns.
[2024-10-14 14:10] LABS: Vitamin D 1,25-Dihydroxy 45.5 pg/mL (24.8-81.5)
== END 2024-10-13 14:37 | disposition home or self-care (01) | DRG 190 ==
LOC: ED 23:16 → PCU 10-11 00:52
PROVIDERS: Internal Medicine; Admitting Provider Internal Medicine; Emergency Provider Emergency Medicine; PCP Internal Medicine; Visit Provider Internal Medicine
DX: J44.1 Chronic obstructive pulmonary disease with (acute) exacerbation (principal); I50.33 Acute on chronic diastolic (congestive) heart failure; I11.0 Hypertensive heart disease with heart failure; E11.9 Type 2 diabetes mellitus without complications; E66.9 Obesity, unspecified; J30.2 Other seasonal allergic rhinitis; J20.9 Acute bronchitis, unspecified; I25.5 Ischemic cardiomyopathy; E78.5 Hyperlipidemia, unspecified; Z79.4 Long term (current) use of insulin; I25.10 Atherosclerotic heart disease of native coronary artery without angina pectoris; M19.012 Primary osteoarthritis, left shoulder; I25.2 Old myocardial infarction; Z79.01 Long term (current) use of anticoagulants; I49.3 Ventricular premature depolarization; Z86.16 Personal history of COVID-19; Z79.82 Long term (current) use of aspirin; Z87.891 Personal history of nicotine dependence; Z95.5 Presence of coronary angioplasty implant and graft; Z86.718 Personal history of other venous thrombosis and embolism; Z79.02 Long term (current) use of antithrombotics/antiplatelets; R79.89 Other specified abnormal findings of blood chemistry; Z82.3 Family history of stroke; Z68.35 Body mass index [BMI] 35.0-35.9, adult
CPT/HCPCS: 36415; 71045; 71275; 80048; 80053; 80061; 82652; 82962; 83036; 83605; 83735; 83880; 84100; 84443; 84484; 85025; 85610; 85730; 87070; 87205; 87633; 93005; 94640; 94668; 99252; 99285; Q9967; A4216; G0463; J1940

== ENCOUNTER 2025-02-10 17:56 | Inpatient (IN) | payer SELFPAY ==
[2021-06-01 14:28] VITALS: BMI 35.6
[2025-02-10] VITALS (17 sets, daily range): BP systolic 146–191; BP diastolic 97–135; PULSE 83–99; RESP 18–27; TEMP 37.1; O2SAT 93–98; BMI 36.3
--- NOTE | 2025-02-10 18:11 | EKG12_ITS ---
Test Reason : CP Blood Pressure : */* mmHG Vent. Rate : 89 BPM Atrial Rate : 89 BPM P-R Int : 196 ms QRS Dur : 112 ms QT Int : 394 ms P-R-T Axes : 73 -29 85 degrees QTcB Int : 479 ms Normal sinus rhythm Possible Left atrial enlargement Septal infarct (cited on or before 26-Jun-2022) Abnormal ECG Confirmed by BIRGIT EVANGELISTA, GENE ([id number]), video effects editor TESS PERRY ([id number]) on 02/11/2025 8:32:04 AM Referred By: Confirmed By: GENE GENAO MD
--- NOTE | 2025-02-10 18:11 | RAD_ITS ---
PROCEDURE: CHEST PA AND LATERAL 02/10/2025 REASON FOR EXAM: CHEST PAIN TECHNIQUE: Frontal and lateral views of the chest. COMPARISON: Chest x-ray dated 10/11/2024. FINDINGS: Diffuse bilateral pulmonary infiltrates are present, new since prior examination. This is worse within the lower lung zones. Differential possibility includes, but not limited to diffuse infectious or inflammatory process. No large pleural effusion. No acute osseous abnormalities present. Postsurgical changes again seen within the cervical spine. RAD/Chest PA and Lateral IMPRESSION: Diffuse bilateral pulmonary infiltrates. Differential includes diffuse infecti on versus inflammatory process within the lungs. Follow-up until complete resolution is recommended. These findings are new sin ce prior examination. Reading Location: [id number]
[2025-02-10 18:26] LABS: Absolute Lymphocyte Count 2.41 X10^3/uL (0.83-4.51); Absolute Neutrophil Count 5.8 X10^3/uL (2.0-7.7); Basophil# 0.08 X10^3/uL; Basophil% 0.8 % (0-1); Eosinophil# 0.23 X10^3/uL; Eosinophils% 2.4 % (0-5); Hematocrit 41.1 % (40-54); Hemoglobin 13.5 g/dL (13.0-16.5); Lymphocyte # 2.41 X10^3/ul (0.83-4.51); Lymphocyte % 25.5 % (19-41); Mean Corp Hgb Conc 32.8 g/dL (32-36); Mean Corpuscular Hgb 27.4 pg (27.0-32.0); Mean Corpuscular Volume 83.5 fL (80-94); Mean Platelet Vol. 10.6 fl (6.2-12.0); Monocyte# 0.87 X10^3/uL; Monocyte% 9.2 % (0-10); NRBC Flagged by Analyzer 0 % (0-5); Neutrophil # 5.82 X10^3/uL (2.7-7.7); Neutrophil % 61.8 % (47-70); Platelet Count 317 K/mm3 (150-450); RBC Distribution Width CV 13.9 % (11.6-14.6); RBC Distribution Width SD 42.5 fl (35.1-43.9); Red Blood Count 4.92 M/mm3 (4.6-6.2); White Blood Count 9.4 K/mm3 (4.4-11.0)
--- NOTE | 2025-02-10 18:31 | CT_ITS ---
PROCEDURE: STROKE CTA HEAD AND NECK W/CON 02/10/2025 REASON FOR EXAM: 54-year-old male, SLURRED SPEECH SINCE SUNDAY TECHNIQUE: CTA imaging of the head and neck from the aortic arch to the skull vertex with intravenous contrast. Coronal and Sagittal reconstruction series were provided. 3D, 3D post processing, 3D reconstructions, Maximum intensity projection (MIPs) Volume rendering and Shaded surface rendering was provided. CONTRAST: Isovue-300 VOLUME: 100ML One or more dose reduction techniques were used (e.g., Automated exposure control, adjustment of the mA and/or kV according to patient size, use of iterative reconstruction technique). RADIATION DOSE SUMMARY: CTDlvol: 100 mGy DLP: 1700 mGycm COMPARISON: Same-day CT head FINDINGS: See same day CT head for discussion of nonvascular findings. Visualization is slightly limited by motion artifact. Standard branching pattern of the aortic arch branch vessels, which are widely patent. Widely patent bilateral vertebral arteries. Calcific plaque of the left carotid bulb resulting in approximately 50% stenosis by NASCET criteria. The right common carotid and internal carotid arteries are patent without focal narrowing by NASCET criteria. No aneurysm or arteriovenous malformation. Non-opacification of the A1 segment of the right anterior cerebral artery. There is retrograde filling of the A2 segment of the right anterior cerebral artery via the patent anterior communicating artery, however the distal right ARELY is of small caliber. There is origin of the right BLUE LINE OPERATOR. The middle and posterior cerebral arteries are widely patent. Major venous structures: Unremarkable. Other findings: Cervical ACDF hardware. Cervical spondylosis. CT/STROKE CTA Head AND Neck W/Con IMPRESSION: 1. Large vessel occlusion of the A1 segment of the right anterior cerebral eugene ry, with retrograde filling via the anterior communicating artery. Small caliber distal right ARELY. Consider neuro IR consu ltation and/or neurology consult for discussion of endovascular thrombectomy versus anticoagulation. 2. Approximately 50% stenosis of the left carotid artery by NASCET criteria. Dr. Thompson discussed these findings via telephone with Dr. Curry at 8:50 pm on 02/10/25. Reading Location: [facility]
--- NOTE | 2025-02-10 18:31 | CT_ITS ---
EXAM: CT head without contrast. CLINICAL HISTORY: Acute mental status changes. COMPARISON: CT head without contrast dated November 21, 2023. TECHNIQUE: CT head was performed with IV contrast. FINDINGS: 1.9 by 1.1 x 1.3 cm hypodense area seen within the deep white matter along the right lateral convexity. This is new since prior examination. Differential possibility includes, but not limited to acute/subacute infarct versus intracranial mass. Recommend MRI brain for further evaluation at this time. There is no intracranial hemorrhage or midline shift present. The calvarium is intact. Large polyps/mucosal retention cysts within the bilateral maxillary sinuses. CT/STROKE Brain/Head without Cont IMPRESSION: 1.9 by 1.1 x 1.3 cm hypodense area seen within the deep white matter along the right lateral convexity. This is new since prior examination. Differential possibility includes, but not limited to acute/subacu te infarct versus intracranial mass. Recommend MRI brain for further evaluation at this time. Red Alert: 1.9 by 1.1 x 1.3 cm hypodense area seen within the deep white matter along the right lateral convexity. This is new since prior examination. Differential possibility includes, but not limited to acute/subacute infarct versus intracranial mass. Recommend MRI brain for further evaluation at this time. The critical information above was relayed directly by me by telephone to Jasbir Langston on 02/10/2025 at 8:00 pm with readback verification. Reading Location: [id number]
[2025-02-10 18:35] LABS: Bedside Glucose 234 mg/dL (74-106)
[2025-02-10] MEDS: Ipratropium/Albuterol Sulfate 3 ML AMPUL.NEB INHALATION ×3 (18:46)
[2025-02-10] MEDS: predniSONE 20 MG Tablet 60 MG PO (19:00)
[2025-02-10 19:13] LABS: Blood Gas Specimen Type VEN; O2 Delivery Device Room Air; SITE Not entered; VBG BASE EXCESS 3 mmol/L (-1.0-3.5); VBG Bicarbonate 28 mmol/L (22-26); VBG PO2 52 mmHg (25-40); VBG SO2 85 % (50-70); VBG TCO2 30 mmol/L (23-33); VBG pCO2 47.6 mmHg (41-51); VBG pH 7.38 (7.32-7.42)
[2025-02-10 19:25] LABS: Anion Gap 12 (5-15); BUN 24 mg/dL (4-19); Calcium,Total 9.1 mg/dL (7.6-11.0); Carbon Dioxide 23.1 mmol/L (21.0-32.0); Chloride 102 mmol/L (98-108); Creatinine, Serum 1.09 mg/dL (0.70-1.20); EST Glomerular Filtration Rate 81 (>60); Estimated Creatinine Clearance 93.49 ml/min (50-250); Glucose 255 mg/dL (70-99); Potassium 4.3 mmol/L (3.3-5.1); Pro- Brain NATRIURETIC PEPTIDE 709 pg/mL (<=900); Sodium Level 137 mmol/L (133-145); Troponin T High Sensitivity 25 ng/L (<=22)
[2025-02-10 19:25] LABS: Lactic Acid 1.9 mmol/L (0.0-2.0)
--- NOTE | 2025-02-10 19:47 | CPS ---
[1846] 9ml Duoneb given to pt. in ER
--- NOTE | 2025-02-10 20:39 | EDS_ITS ---
HPI History of Present Illness Chief Complaint: Chest Pain Narrative Narrative: Patient is a 54-year-old male with past medical history of COPD, CHF, CAD, hypertension, diabetes who presented to the emergency department with a complaint of chest pain, shortness of breath, brain fog, slurred speech since Sunday. According to the patient and significant other and has been off and on for the last several days. They state that since things were not getting better they decided come here for further evaluation management. Patient denies any recent sick contacts. He states that he has been using his inhalers and other medications as prescribed [facility] Medical History History of DVT (deep vein thrombosis) Respiratory insufficiency Elevated troponin Acute bronchitis COPD exacerbation Congestive heart failure Acute sinusitis, unspecified Left shoulder pain Insulin dependent diabetes mellitus Coronary artery disease Essential hypertension Cluster headache Migraine Headache Diabetes Obesity Community acquired pneumonia Smoker Asthma Myocardial infarct Ischemic cardiomyopathy Obesity (BMI 30.0-34.9) Chronic obstructive pulmonary disease (COPD) Nicotine dependence COPD (chronic obstructive pulmonary disease) Hyperlipidemia History of non-ST elevation myocardial infarction (NSTEMI) (11/22/20) Atherosclerosis of [place] coronary artery of [place] heart without angina pectoris Non-ST elevation MD (NSTEMI) Home Medications ?Medication ?Instructions ?Recorded ?Last Taken ?Type aspirin 81 mg chewable tablet 81 mg PO DAILY heart hea lth 04/27/22 02/10/25 History loratadine 10 mg tablet 10 mg PO DAILY PRN allergies 06/26/22 Unknown History amlodipine 10 mg tablet 10 mg PO DAILY blood pressur e #90 06/25/23 02/10/25 Rx tabs lisinopril 20 mg tablet 20 mg PO BID blood pressure #180 11/26/23 Unknown Rx tabs atorvastatin 80 mg tablet 80 mg PO QHS cholesterol #90 tabs 12/28/23 02/09/25 Rx insulin degludec 200 unit/mL (3 50 unit (0.25 mL) subc ut QHS blood 12/28/23 02/09/25 Rx mL) subcutaneous pen (Tresiba sugar 3 months #22.5 mL FlexTouch U-200 insulin) ranolazine 1,000 mg 1,000 mg PO BID heart #60 ta bs 01/03/24 02/10/25 Rx tablet,extended release,12 hr clopidogrel 75 mg tablet (Plavix) 75 mg PO DAILY anti platelet #90 01/15/24 02/10/25 Rx tabs isosorbide mononitrate 60 mg 60 mg PO BID heart #180 T ABLETS 01/15/24 02/10/25 Rx tablet,extended release 24 hr nitroglycerin 0.4 mg sublingual 0.4 mg sublingual Q5-1 5M chest 07/22/24 02/08/25 Rx tablet pain #25 tabs albuterol sulfate 90 mcg/actuation 2 puff inhalation 4 X/DAY PRN 09/01/24 Unknown Rx aerosol inhaler Shortness Of Breath #8.5 gra ms potassium chloride 20 mEq 20 meq PO BIDCM #60 tabs Unknown Rx tablet,extended release(part/cryst) carvedilol 25 mg tablet 25 mg PO BIDCM heart health #180 10/27/24 02/10/25 Rx tabs clonidine HCl 0.1 mg tablet 0.1 mg PO BID blood pressu re #180 12/15/24 02/10/25 Rx tabs furosemide 20 mg tablet (Lasix) 60 mg (3 x 20 mg) PO D AILY #270 01/15/25 02/10/25 Rx tabs guaifenesin 1,200 mg tablet, 600 mg PO BID 02/10/25 History extended release 12 hr (Mucus Relief ER) insulin lispro 100 unit/mL 20 unit subcut TIDAC PRN DI ABETES 02/10/25 02/10/25 History subcutaneous pen (Humalog KwikPen (U-100) Insulin) Allergy/AdvReac Type Severity Reaction Status Date / Time amoxicillin trihydrate (From Allergy Rash Verified 02/10/25 17:57 Augmentin) potassium clavulanate (From Allergy Rash Verified 02/10/25 17:57 Augmentin) ticagrelor (From Brilinta) Allergy Shortness Verified 02/10/25 17:57 of breath codeine AdvReac Nausea Verified 02/10/25 17:57 Family History Sister Myocardial infarction, Onset Age: 41 Diabetes Mother COPD (chronic obstructive pulmonary disease) Asthma Rheumatoid arthritis CVA (cerebral vascular accident) Hypertension Grandmother Diabetes Surgical History History of coronary artery stent placement (12/25/23) History of hernia repair (2008) History of umbilical hernia repair (1971) History of neck surgery History of appendectomy Social History household members: spouse housing: house Smoking Status: Current every day smoker tobacco type: cigarettes Tobacco: How many years used: 20 Electronic Cigarette Use: not used second hand exposure: Yes alcohol intake: current alcohol intake frequency: 0-2 drinks per day Alcohol type: beer substance use type: does not use caffeine: Yes Type: carbonated beverages Number of servings: 2 and tea Number of servings: 6 what type of physical activity do you participate in: none ROS ROS ED ROS Narrative Constitutional: Complains of headache, lightheadedness denies any dizziness Eyes: Denies change in vision double vision blurry vision Cardiovascular: Complains of chest heaviness denies any palpitations Respiratory: Complaint shortness of breath as noted above denies coughing complains of wheezing Abdomen: Denies abdominal pain nausea vomit diarrhea : Denies urinary symptoms Neurological: Denies numbness, tingling, weakness complaint slurred speech as noted above Musculoskeletal: Denies back pain Skin: Denies rashes or lesions EXAM Physical Exam Narrative Exam Narrative: General: Patient is lying in bed rest comfortably did not appear to be in acute distress Head: Atraumatic, normocephalic Eyes: PERRL bilateral, EOMI bilateral, no conjunctival injection noted Neck: Soft, supple, trachea Cardiovascular:Regular rate and rhythm no murmurs gallops rubs noted Respiratory: clear to auscultation bilaterally Abdomen: Soft, nondistended, nontender to palpation Extremities: +5/5 strength noted in the bilateral upper and lower extremities, radial pulses +2/4 in the bilateral extremities, patient does have edema noted in his bilateral lower extremities Neurological: Patient following commands that he was at [facility] year is 2024. Patient completed finger-nose testing bilaterally for any difficulty, NIH of 0 GCS 15 Skin: Warm, dry, intact no rashes or lesions noted Const Vital Signs: 02/10/25 17:56 02/10/25 18:08 02/10/25 18:12 Temperature 98.7 F Temperature Source Oral Pulse Rate 97 Respiratory Rate 18 Respiratory Effort Short of Breath Respiratory Pattern Blood Pressure 167/109 H Blood Pressure Mean 128 Blood Pressure Source Blood Pressure Position Blood Pressure Location Pulse Ox 95 Oxygen Delivery Method Room Air Room Air 02/10/25 18:46 02/10/25 18:53 02/10/25 20:00 Temperature Temperature Source Pulse Rate 88 88 83 Respiratory Rate 20 H Respiratory Effort Respiratory Pattern Normal Blood Pressure 173/97 H 170/116 H Blood Pressure Mean 122 134 Blood Pressure Source Blood Pressure Position Blood Pressure Location Pulse Ox 98 94 Oxygen Delivery Method Room Air Room Air 02/10/25 21:00 02/10/25 21:10 02/10/25 21:23 Temperature 98.7 F Temperature Source Oral Pulse Rate 86 89 85 Respiratory Rate 24 H 27 H Respiratory Effort Respiratory Pattern Blood Pressure 174/116 H 184/119 H Blood Pressure Mean 135 140 Blood Pressure Source Monitor Blood Pressure Position Semi-Fowlers Semi-Fowlers Blood Pressure Location Left Arm Left Arm Pulse Ox 97 95 93 Oxygen Delivery Method Room Air Room Air Room Air 02/10/25 21:40 02/10/25 21:55 02/10/25 22:00 Temperature Temperature Source Pulse Rate 87 89 Respiratory Rate 21 H 22 H Respiratory Effort Respiratory Pattern Blood Pressure 177/131 H 191/135 H Blood Pressure Mean 146 153 Blood Pressure Source Monitor Monitor Blood Pressure Position Semi-Fowlers Semi-Fowlers Blood Pressure Location Left Arm Right Forearm Pulse Ox 95 93 95 Oxygen Delivery Method Room Air Room Air Room Air 02/10/25 22:10 02/10/25 22:15 02/10/25 22:30 Temperature Temperature Source Pulse Rate 86 Respiratory Rate 22 H Respiratory Effort Respiratory Pattern Blood Pressure 183/132 H 188/133 H 188/128 H Blood Pressure Mean 149 151 148 Blood Pressure Source Blood Pressure Position Blood Pressure Location Pulse Ox 93 Oxygen Delivery Method 02/10/25 22:34 02/10/25 23:00 02/10/25 23:00 Temperature Temperature Source Pulse Rate 93 84 Respiratory Rate 24 H 21 H Respiratory Effort Respiratory Pattern Tachypnea Blood Pressure 186/124 H Blood Pressure Mean 144 Blood Pressure Source Blood Pressure Position Blood Pressure Location Pulse Ox 95 96 Oxygen Delivery Method Room Air Room Air MDM MDM MDM Narrative Medical decision making narrative: Patient is a 54-year-old male who presented to the emerged part with chief complaint of altered mental status, slurred speech off and on since Sunday as noted above. On the differential diagnose includes but not limited to intracranial hemorrhage, acute on chronic subdural, hypercapnia, TIA, subacute stroke. Once workup is obtained reviewed he will be reevaluated. Patient is not a tenecteplase candidate as symptoms have been going on since Sunday. Patient's CBC was reviewed which showed a white blood count 9.4, hemoglobin 13.5, platelet count was 317. Patient's venous gas showed pH 7.38, pCO2 of 47.6. Patient sodium normal 137, potassium normal 4.3, creatinine was normal at 1.09. Patient lactic acid normal at 1.9, troponin was 25 with a delta troponin of 24 patient's EKG was reviewed by myself which showed sinus rhythm with a rate of 89 bpm. Patient's proBNP of 709. Patient TSH normal at 3.16 with a free T41.20. Patient's CT head and brain without contrast showed a 1.9 x 1.1 x 1.3 cm hypodense area seen within the deep white matter along the right lateral convexity. New since prior examination. Differential includes but not limited to acute/subacute infarct versus intracranial mass recommending MRI for further evaluation management. Patient chest x-ray reviewed by myself and by radiology foot showed diffuse bilateral pulmonary infiltrates differential includes diffuse infectious versus inflammatory processes within the lungs. Patient CTA head and neck was reviewed which showed large vessel occlusion of the A1 segment of the right anterior cerebral artery with retrograde filling via the anterior communicating artery. Small caliber distal right ARELY. Consider neuro IR consultation and/or neurology consult for discussion of endovascular thrombectomy versus anticoagulation. Approximately 50% stenosis of the left carotid artery by NASCET criteria. Discussed the case with neurology/neurosurgery at [facility] Dr. Barragan who reviewed everything and states give the patient aspirin and Plavix and place the patient in the intensive care unit for close monitoring. She states that if the patient decompensates to repaged them and they will reevaluate at that point time but she does feel that this is likely a chronic large vessel occlusion. Patient already took Plavix this morning therefore we will not give the patient Plavix. Patient will be given antibiotics as he states that he is coughing up more phlegm than normal. Will discuss case with hospitalist for admission. Did discuss case with hospitalist Dr. Lau who accept the patient for admission. Patient notified is agreeable this plan all question concerns answered. Lab Data Labs: Laboratory Results - last 24 hr 02/10/25 02/10/25 02/10/25 18:11 18:16 18:48 WBC 9.4 RBC 4.92 Hgb 13.5 Hct 41.1 MCV 83.5 MCH 27.4 MCHC 32.8 RDW Std Deviation 42.5 RDW Coeff of Narcisa 13.9 Plt Count 317 MPV 10.6 Immature Gran % (Auto) 0.300 Neut % (Auto) 61.8 Lymph % (Auto) 25.5 [place] % (Auto) 9.2 Eos % (Auto) 2.4 Baso % (Auto) 0.8 Absolute Neuts (auto) 5.8 Absolute Lymphs (auto) 2.41 Nucleated RBC % 0 Sodium 137 Potassium 4.3 Chloride 102 Carbon Dioxide 23.1 Anion Gap 12 BUN 24 H Creatinine 1.09 Estim Creat Clear Calc 93.49 Est GFR (MDRD) Non-Af 81 BUN/Creatinine Ratio 22.0 H Glucose 255 H Lactic Acid 1.9 Calcium 9.1 Troponin T High Sens 25 H Troponin T Hi Sens 2 Hr NT pro BNP II 709 TSH 3.160 Free T4 1.20 POC Glucose 234 H 02/10/25 20:11 WBC RBC Hgb Hct MCV MCH MCHC RDW Std Deviation RDW Coeff of Narcisa Plt Count MPV Immature Gran % (Auto) Neut % (Auto) Lymph % (Auto) [place] % (Auto) Eos % (Auto) Baso % (Auto) Absolute Neuts (auto) Absolute Lymphs (auto) Nucleated RBC % Sodium Potassium Chloride Carbon Dioxide Anion Gap BUN Creatinine Estim Creat Clear Calc Est GFR (MDRD) Non-Af BUN/Creatinine Ratio Glucose Lactic Acid Calcium Troponin T High Sens Troponin T Hi Sens 2 Hr 24 H NT pro BNP II TSH Free T4 POC Glucose ABG Data ABG results: ABG 02/10/25 19:09 Specimen Type TAMIKA Sample Site Not entered VBG pH 7.38 VBG pO2 52 H VBG HCO3 28 H VBG Total CO2 30 VBG O2 Sat (Calc) 85 H VBG Base Excess 3 POC Mix VBG pCO2 Pt Tmp 47.6 O2 Delivery Device Room Air Radiography Diagnostic Testing: Clinical Impression(s) from Imaging Studies Chest X-Ray 02/10/25 18:11 IMPRESSION: Diffuse bilateral pulmonary infiltrates. Differential includes diffuse infection versus inflammatory process within the lungs. Follow-up until complete resolution is recommended. These findings are new since prior examination. Reading Location: [facility] Brain CT 02/10/25 18:31 IMPRESSION: 1.9 by 1.1 x 1.3 cm hypodense area seen within the deep white matter along the right lateral convexity. This is new since prior examination. Differential possibility includes, but not limited to acute/subacute infarct versus intracranial mass. Recommend MRI brain for further evaluation at this time. Red Alert: 1.9 by 1.1 x 1.3 cm hypodense area seen within the deep white matter along the right lateral convexity. This is new since prior examination. Differential possibility includes, but not limited to acute/subacute infarct versus intracranial mass. Recommend MRI brain for further evaluation at this time. The critical information above was relayed directly by me by telephone to Jasbir Curry on 02/10/2025 at 8:00 pm with readback verification. Reading Location: [facility] Head/Neck CTA 02/10/25 18:31 IMPRESSION: 1. 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 Small caliber distal right ARELY. Consider neuro IR consultation and/or neurology consult for discussion of endovascular thrombectomy versus anticoagulation. 2. Approximately 50% stenosis of the left carotid artery by NASCET criteria. Dr. Thompson discussed these findings via telephone with Dr. Curry at 8:50 pm on 02/10/25. Reading Location: [facility] Discharge Plan Triage Chief Complaint: Chest Pain Other Complaint: Neuro S/Sx ED Provider: Jasbir Curry Dx/Rx/DC Orders Clinical Impression: Acute CVA (cerebrovascular accident), Abnormal computed tomography angiography of head, COPD exacerbation Prescriptions: No Action atorvastatin 80 mg tablet 80 mg PO QHS Qty: 90 1RF insulin degludec [Tresiba FlexTouch U-200] 200 unit/mL (3 mL) insulin pen 50 unit SUBCUT QHS 90 Days Qty: 22.5 1RF clopidogrel [Plavix] 75 mg tablet 75 mg PO DAILY Qty: 90 3RF isosorbide mononitrate 60 mg tablet extended release 24 hr 60 mg PO BID Qty: 180 3RF aspirin 81 MG tablet,chewable 81 mg PO DAILY loratadine 10 mg tablet 10 mg PO DAILY PRN (Reason: allergies) potassium chloride 20 mEq Tablet,Er Particles/Crystals 20 meq PO BIDCM Qty: 60 0RF insulin lispro [Humalog KwikPen Insulin] 100 unit/mL Insulin Pen 20 unit subcut TIDAC PRN (Reason: DIABETES) guaifenesin [Mucus Relief ER] 1,200 mg Tablet Extended Release 12hr 600 mg PO BID amlodipine 10 mg tablet 10 mg PO DAILY Qty: 90 3RF lisinopril 20 mg tablet 20 mg PO BID Qty: 180 3RF ranolazine 1,000 mg tablet extended release 12 hr 1,000 mg PO BID Qty: 60 11RF nitroglycerin 0.4 mg tablet, sublingual 0.4 mg sublingual Q5-15M Qty: 25 3RF albuterol sulfate 90 mcg/actuation HFA aerosol inhaler 2 puff INHALATION 4X/DAY PRN (Reason: Shortness Of Breath) Qty: 8.5 0RF carvedilol 25 mg tablet 25 mg PO BIDCM Qty: 180 3RF clonidine HCl 0.1 mg tablet 0.1 mg PO BID Qty: 180 3RF furosemide [Lasix] 20 mg tablet 60 mg PO DAILY Qty: 270 3RF Primary Care Provider: Sivan Bowie Referrals: Sivan Bowie MD [Primary Care Provider] - Print Language: Tunisian Disposition Disposition: Acute Care Hospital [facility]
[2025-02-10 21:16] LABS: Troponin T High Sens 2 HR 24 ng/L (<=22)
[2025-02-10] MEDS: Aspirin 325 MG Tablet PO (21:19)
--- NOTE | 2025-02-10 21:30 | ED.RN ---
Dr. Curry notified of sbp over 180, requesting parameters for bp treatment. Dr. Curry states that no treatment required unless sbp greater than or equal to 220.
[2025-02-10] MEDS: Ceftriaxone 1 GM/50 ML BAG IV (22:09)
[2025-02-10] MEDS: Albuterol 2.5 MG/3 ML VIAL.NEB. INHALATION (22:34)
[2025-02-10] MEDS: Azithromycin 500 MG in 0.9% Normal Saline (250mL Bag) 250 ML 255 MG IV (22:53)
--- NOTE | 2025-02-10 23:07 | ED.RN ---
per Dr Curry [facility] can be changed to Q30M.
--- NOTE | 2025-02-10 23:11 | PCM.HP.STD ---
[facility] - General General Date of Admission: 02/11/25 Date of Service: 02/10/25 Chief Complaint: Slurred Speech, Brain Fog, Chest Pain and Cough. HPI Narrative LATONYA ELDER, is a 54 M with a past medical history of essential hypertension; on carvedilol, amlodipine, lisinopril and clonidine, hyperlipidemia; on high-dose atorvastatin, obesity; with BMI of 36.3 this admission, IDDM; of unknown control on degludec and humalog TID, history of HONK, history of tobacco abuse (quit 09/2024); with subsequent asthma/COPD, CAD; s/p stent (2003) and NSTEMI (2016, 2018 & 2020) on BASA and Plavix, Ischemic Cardiomyopathy; with chronic chest pain on ranolazine, ISMO and prn NTG, history of CHF; with peripheral edema, history of bilateral LE DVT's; previously on apixaban, history of sepsis, history of appendectomy, history of hernia; s/p repair (2008), remote history of umbilical hernia repair (1971), history of migraine & cluster headaches, history of sinusitis, history of vitamin D deficiency, history of thrush, seasonal allergies, listed allergy to Augmentin (rash), listed allergy to ticagrelor (SOB), listed allergy to codeine (nausea), OA; with chronic Left shoulder pain and history of neck surgery plus history of admission here from October 12, 2024 to October 13, 2024 for treatment of AE COPD with Acute Bronchitis, mild AE CHF with elevated troponin and Respiratory Insufficiency who presents to [facility] ER complaining of who presents to [facility] complaining of slurred speech and brain fog since Saturday, February 08, 2025. Mr. Elder and his significant other reported that his symptoms have been [id number] for the past several days and since things were not getting better they decided to come in for further evaluation and treatment. He also admits to intermittent chest discomfort that is pressure-like, heavy, moderate, nonradiating with associated shortness of breath and wheezing with cough productive of increasing yellowish sputum, but he denies chest pain at this time. He denies any recent sick contacts or similar previous episodes plus he states he has been taking his medications as prescribed. He admits to associated headache and lightheadedness with a feeling like he is drifting to the Left but he is able to compensate in addition to mildly dysarthric speech. He denies related fever, chills, nausea, vomiting, diarrhea, constipation, abdominal pain, palpitations, heart racing, dysuria, hematuria, rash or back pain but he does admit to taking 2 Excedrin twice daily routinely. In the ER he was noted to have CTA of the head and neck with IV contrast revealing Large Vessel Occlusion of the A1 segment of the Right anterior cerebral artery with retrograde filling via the anterior communicating artery with small caliber distal Right ARELY with radiologist recommending neuro IR consultation for discussion of endovascular thrombectomy versus anticoagulation and ~50% stenosis of the Left carotid artery by NASCET criteria with a corresponding CT of the brain without contrast revealing ~1.9 cm x ~1.1 cm x ~1.3 cm hypodense area seen within the deep white matter along the Right lateral convexity which was new since prior examination with differential possibilities including: Acute/subacute CVA versus intracranial mass with MRI of the brain recommended for further evaluation at this time. He was also noted to have Uncontrolled Hypertension of 186/124 mmHg noted shortly after admission. The ER physician then spoke with [facility], Dr. Barragan, who reviewed the case and recommended giving patient aspirin and Plavix in the place in the ICU overnight for close monitoring with his note going on to state that, if patient decompensates to re-page them and they will reevaluate at that point but she does not feel like this is a chronic large vessel occlusion - even though the radiologist notes this is a new finding with recommendation for neuro IR for thrombectomy, and this patient has no previous history of CVA or similar previous episodes. Patient already took Plavix this morning and therefore an additional dose was not given in the ER. He was also started on antibiotics for suspected Acute Bacterial Bronchitis with mild AE COPD. He was then reluctantly admitted to the ICU for ongoing care for a stay that is expected to extend beyond 2 midnights. [facility] Medical History History of DVT (deep vein thrombosis) Respiratory insufficiency Elevated troponin Acute bronchitis COPD exacerbation Congestive heart failure Acute sinusitis, unspecified Left shoulder pain Insulin dependent diabetes mellitus Coronary artery disease Essential hypertension Cluster headache Migraine Headache Diabetes Obesity Community acquired pneumonia Smoker Asthma Myocardial infarct Ischemic cardiomyopathy Obesity (BMI 30.0-34.9) Chronic obstructive pulmonary disease (COPD) Nicotine dependence COPD (chronic obstructive pulmonary disease) Hyperlipidemia History of non-ST elevation myocardial infarction (NSTEMI) (11/22/20) Atherosclerosis [place] coronary artery [place] heart without angina pectoris Non-ST elevation DC (NSTEMI) Home Medications ?Medication ?Instructions ?Recorded ?Last Taken ?Type aspirin 81 mg chewable tablet 81 mg PO DAILY heart health 04/27/22 02/10/25 History loratadine 10 mg tablet 10 mg PO DAILY PRN allergies 06/26/22 Unknown History amlodipine 10 mg tablet 10 mg PO DAILY blood pressure #90 06/25/23 02/10/25 Rx tabs lisinopril 20 mg tablet 20 mg PO BID blood pressure #180 11/26/23 Unknown Rx tabs atorvastatin 80 mg tablet 80 mg PO QHS cholesterol #90 tabs 12/28/23 02/09/25 Rx insulin degludec 200 unit/mL (3 50 unit (0.25 mL) subcut QHS blood 12/28/23 02/09/25 Rx mL) subcutaneous pen (Prixingsiba sugar 3 months #22.5 mL FlexTouch U-200 insulin) ranolazine 1,000 mg 1,000 mg PO BID heart #60 tabs 01/03/24 02/10/25 Rx tablet,extended release,12 hr clopidogrel 75 mg tablet (Plavix) 75 mg PO DAILY anti platelet #90 01/15/24 02/10/25 Rx tabs isosorbide mononitrate 60 mg 60 mg PO BID heart #180 TABLETS 01/15/24 02/10/25 Rx tablet,extended release 24 hr nitroglycerin 0.4 mg sublingual 0.4 mg sublingual Q5-15M chest 07/22/24 02/08/25 Rx tablet pain #25 tabs albuterol sulfate 90 mcg/actuation 2 puff inhalation 4X/DAY PRN 09/01/24 Unknown Rx aerosol inhaler Shortness Of Breath #8.5 grams potassium chloride 20 mEq 20 meq PO BIDCM #60 tabs 10/13/24 Unknown Rx tablet,extended release(part/cryst) carvedilol 25 mg tablet 25 mg PO BIDCM heart health #180 10/27/24 02/10/25 Rx tabs clonidine HCl 0.1 mg tablet 0.1 mg PO BID blood pressure #180 01/27/25 03/25/25 Rx tabs furosemide 20 mg tablet (Lasix) 60 mg (3 x 20 mg) PO DAILY #270 01/15/25 02/10/25 Rx tabs guaifenesin 1,200 mg tablet, 600 mg PO BID 02/10/25 02/10/25 History extended release 12 hr (Mucus Relief ER) insulin lispro 100 unit/mL 20 unit subcut TIDAC PRN DIABETES 02/10/25 02/10/25 History subcutaneous pen (Humalog KwikPen (U-100) Insulin) Allergy/AdvReac Type Severity Reaction Status Date / Time amoxicillin trihydrate (From Allergy Rash Verified 02/10/25 17:57 Augmentin) potassium clavulanate (From Allergy Rash Verified 02/10/25 17:57 Augmentin) ticagrelor (From Brilinta) Allergy Shortness Verified 02/10/25 17:57 of breath codeine AdvReac Nausea Verified 02/10/25 17:57 Family History Sister Myocardial infarction, Onset Age: 41 Diabetes Mother COPD (chronic obstructive pulmonary disease) Asthma Rheumatoid arthritis CVA (cerebral vascular accident) Hypertension Grandmother Diabetes Surgical History History of coronary artery stent placement (12/25/23) History of hernia repair (2008) History of umbilical hernia repair (1971) History of neck surgery History of appendectomy Social History household members: spouse housing: house Smoking Status: Current every day smoker tobacco type: cigarettes Tobacco: How many years used: 20 Electronic Cigarette Use: not used second hand exposure: Yes alcohol intake: current alcohol intake frequency: 0-2 drinks per day Alcohol type: beer substance use type: does not use caffeine: Yes Type: carbonated beverages Number of servings: 2 and tea Number of servings: 6 what type of physical activity do you participate in: none ROS ROS Narrative Review of Systems: Constitutional: Patient denies fever or chills. Eyes: Patient denies changes vision or discharge from eyes. ENT: Patient denies runny nose, sore throat or ear pain. Resp: Patient admits to shortness of breath and cough productive of yellowish sputum with wheezing as per HPI. CV: Patient admits to intermittent heaviness in his chest but he denies palpitations, heart racing or lower extremity edema. GI: Patient denies abdominal pain, nausea, vomiting, diarrhea or constipation. : Patient denies dysuria or hematuria. MSK: Patient denies arthralgias or myalgias. Skin: Patient denies rash, abscess, wounds or jaundice. Psych: Patient denies symptoms of uncontrolled depression or anxiety. Neuro: Patient admits to headache, dysarthric speech, lightheadedness; with patient feeling like he is leaning to the Left but compensating but he denies paresthesias. Allergies: Patient denies lip swelling, tongue swelling or urticaria. Hematology: Patient denies easy bleeding or easy bruisability. Endocrinology: Patient admits to polyuria and polydipsia but he denies polyphagia. 14 point ROS otherwise negative except for positives noted above in HPI. Vital Signs Vital Signs Vital Signs: 02/10/25 17:56 02/10/25 18:08 02/10/25 18:12 Temperature 98.7 F Temperature Source Oral Pulse Rate 97 Respiratory Rate 18 Respiratory Effort Short of Breath Respiratory Pattern Blood Pressure 167/109 H Blood Pressure Mean 128 Blood Pressure Source Blood Pressure Position Blood Pressure Location Pulse Ox 95 Oxygen Delivery Method Room Air Room Air 02/10/25 18:46 02/10/25 18:53 02/10/25 20:00 Temperature Temperature Source Pulse Rate 88 88 83 Respiratory Rate 20 H Respiratory Effort Respiratory Pattern Normal Blood Pressure 173/97 H 170/116 H Blood Pressure Mean 122 134 Blood Pressure Source Blood Pressure Position Blood Pressure Location Pulse Ox 98 94 Oxygen Delivery Method Room Air Room Air 02/10/25 21:00 02/10/25 21:10 02/10/25 21:23 Temperature 98.7 F Temperature Source Oral Pulse Rate 86 89 85 Respiratory Rate 24 H 27 H Respiratory Effort Respiratory Pattern Blood Pressure 174/116 H 184/119 H Blood Pressure Mean 135 140 Blood Pressure Source Monitor Blood Pressure Position Semi-Fowlers Semi-Fowlers Blood Pressure Location Left Arm Left Arm Pulse Ox 97 95 93 Oxygen Delivery Method Room Air Room Air Room Air 02/10/25 21:40 02/10/25 21:55 02/10/25 22:00 Temperature Temperature Source Pulse Rate 87 89 Respiratory Rate 21 H 22 H Respiratory Effort Respiratory Pattern Blood Pressure 177/131 H 191/135 H Blood Pressure Mean 146 153 Blood Pressure Source Monitor Monitor Blood Pressure Position Semi-Fowlers Semi-Fowlers Blood Pressure Location Left Arm Right Forearm Pulse Ox 95 93 95 Oxygen Delivery Method Room Air Room Air Room Air 02/10/25 22:10 02/10/25 22:15 02/10/25 22:30 Temperature Temperature Source Pulse Rate 86 Respiratory Rate 22 H Respiratory Effort Respiratory Pattern Blood Pressure 183/132 H 188/133 H 188/128 H Blood Pressure Mean 149 151 148 Blood Pressure Source Blood Pressure Position Blood Pressure Location Pulse Ox 93 Oxygen Delivery Method 02/10/25 22:34 02/10/25 23:00 02/10/25 23:00 Temperature Temperature Source Pulse Rate 93 84 Respiratory Rate 24 H 21 H Respiratory Effort Respiratory Pattern Tachypnea Blood Pressure 186/124 H Blood Pressure Mean 144 Blood Pressure Source Blood Pressure Position Blood Pressure Location Pulse Ox 95 96 Oxygen Delivery Method Room Air Room Air Weight Weight: 238 lb 9.6 oz Body Mass Index (BMI) 36.3 Physical Exam Const alert, oriented x3 and no apparent distress Constitutional Narrative: Obese with patient appearing much older than his stated age. General Appearance: cooperative HEENT normocephalic, head/scalp atraumatic, hearing grossly normal bilaterally and moist oral mucous membranes Eyes PERRL and EOMs intact bilaterally Neck no lymphadenopathy and supple Resp Resp Narrative: Diminished breath sounds throughout. Cardio regular rate and regular rhythm GI normal to inspection, nondistended, normoactive bowel sounds, soft to palpation, non-tender and non-distended GI Narrative: Obese. Extremity normal to inspection, full ROM and no clubbing, cyanosis or edema Skin Skin Narrative: Patient has no evidence of rash, abscess, wounds or jaundice. Neuro oriented x3, CN's II-XII intact bilaterally and moves all extremities Neuro Narrative: Patient has mildly dysarthric speech with some minor difficulty with word finding. Sensorium / Orientation: awake, alert, oriented to person, oriented to place and oriented to time Speech: speech normal Motor Exam: strength 5/5 throughout Psych affect normal Results Medical Records Data Attestation: I reviewed the patient's medical records Lab / Micro Data Attestation: I reviewed the patient's lab results. 02/10/25 18:11 02/10/25 18:11 Labs: Laboratory Results - last 24 hr 02/10/25 18:11: WBC 9.4, RBC 4.92, Hgb 13.5, Hct 41.1, MCV 83.5, MCH 27.4, MCHC 32.8, RDW Std Deviation 42.5, RDW Coeff of Narcisa 13.9, Plt Count 317, MPV 10.6, Immature Gran % (Auto) 0.300, Neut % (Auto) 61.8, Lymph % (Auto) 25.5, Price % (Auto) 9.2, Eos % (Auto) 2.4, Baso % (Auto) 0.8, Absolute Neuts (auto) 5.8, Absolute Lymphs (auto) 2.41, Nucleated RBC % 0, Sodium 137, Potassium 4.3, Chloride 102, Carbon Dioxide 23.1, Anion Gap 12, BUN 24 H, Creatinine 1.09, Estim Creat Clear Calc 93.49, Est GFR (MDRD) Non-Af 81, BUN/Creatinine Ratio 22.0 H, Glucose 255 H, Calcium 9.1, Troponin T High Sens 25 H, NT pro BNP II 709, TSH 3.160, Free T4 1.20 02/10/25 18:16: POC Glucose 234 H 02/10/25 18:48: Lactic Acid 1.9 02/10/25 20:11: Troponin T Hi Sens 2 Hr 24 H ABG Data ABG results: ABG 02/10/25 19:09 Specimen Type TAMIKA Sample Site Not entered VBG pH 7.38 VBG pO2 52 H VBG HCO3 28 H VBG Total CO2 30 VBG O2 Sat (Calc) 85 H VBG Base Excess 3 POC Mix VBG pCO2 Pt Tmp 47.6 O2 Delivery Device Room Air Imaging Radiology Impression Chest X-Ray 02/10/25 18:11 IMPRESSION: Diffuse bilateral pulmonary infiltrates. Differential includes diffuse infection versus inflammatory process within the lungs. Follow-up until complete resolution is recommended. These findings are new since prior examination. Reading Location: [id number] Brain CT 02/10/25 18:31 IMPRESSION: 1.9 by 1.1 x 1.3 cm hypodense area seen within the deep white matter along the right lateral convexity. This is new since prior examination. Differential possibility includes, but not limited to acute/subacute infarct versus intracranial mass. Recommend MRI brain for further evaluation at this time. Red Alert: 1.9 by 1.1 x 1.3 cm hypodense area seen within the deep white matter along the right lateral convexity. This is new since prior examination. Differential possibility includes, but not limited to acute/subacute infarct versus intracranial mass. Recommend MRI brain for further evaluation at this time. The critical information above was relayed directly by me by telephone to Jasbir Curry on 02/10/2025 at 8:00 pm with readback verification. Reading Location: [id number] Head/Neck CTA 02/10/25 18:31 IMPRESSION: 1. 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 Small caliber distal right ARELY. Consider neuro IR consultation and/or neurology consult for discussion of endovascular thrombectomy versus anticoagulation. 2. Approximately 50% stenosis of the left carotid artery by NASCET criteria. Dr. Thompson discussed these findings via telephone with Dr. Curry at 8:50 pm on 02/10/25. Reading Location: [id number] Assessment & Plan Assessment/Plan (1) Abnormal computed tomography angiography of head: (2) Acute CVA (cerebrovascular accident): (3) Uncontrolled hypertension: (4) COPD exacerbation: (5) Acute bacterial bronchitis: (6) Obesity (BMI 30-39.9): PLAN: Plan 1. CTA of the head and neck with IV contrast revealing Large Vessel Occlusion of the A1 segment of the Right anterior cerebral artery with retrograde filling via the anterior communicating artery with small caliber distal Right ARELY with radiologist recommending neuro IR consultation for discussion of endovascular thrombectomy versus anticoagulation and ~50% stenosis of the Left carotid artery by NASCET criteria - Admit to ICU as per [facility] recommendations. Check MRI of the brain with IV contrast to confirm suspicion of acute large vessel occlusion. Patient was already on baby aspirin, clopidogrel and hide-dose atorvastatin at time of admission which would indicate that he is failing maximal medical therapy and would likely benefit from transfer to tertiary care center for definitive treatment of this issue given his [id number] slurred speech, brain fog and headache. If patient worsens [facility] will be recontacted to reconsider transfer as he will likely not able to be discharged home without formal neurologic evaluation and definitive treatment. 2. CT of the brain without contrast revealing ~1.9 cm x ~1.1 cm x ~1.3 cm hypodense area seen within the deep white matter along the Right lateral convexity which was new since prior examination with differential possibilities including: Acute/subacute CVA versus intracranial mass with MRI of the brain recommended for further evaluation at this time complicating #1 in the setting of a known history of migraine & cluster headaches - MRI of the brain with IV contrast pending in the a.m. to confirm suspicion of acute CVA. Check carotid Doppler to evaluate for stenosis that may not be apparent on CTA. Check echocardiogram to evaluate LVEF. Check Lipid Profile, B12, Folate, ASHLEY and UDS to expand his neurologic evaluation. 3. Uncontrolled Hypertension of 186/124 mmHg noted shortly after admission attributable to #1 & #2 - Allow for permissive hypertension with suspected Acute CVA to prevent worsening of his symptoms. Check TSH. 4. Mild AE COPD with Acute Bacterial Bronchitis in the setting of a known history of tobacco abuse (quit 09/2024); with subsequent asthma/COPD adding to the medical complexity of #1 - #3 - Continue steroids with IV methylprednisolone. Start treatment with IV doxycycline plus probiotic. Give scheduled and as needed nebulizers. Continue guaifenesin scheduled 600 mg p.o. twice daily. 5. Obesity; with BMI of 36.3 this admission adding to the burden of disease outlined from #1 - #4 - Weight loss will be recommended. Check TSH. 6. History of admission here from October 12, 2024 to October 13, 2024 for treatment of AE COPD with Acute Bronchitis, mild AE CHF with elevated troponin and Respiratory Insufficiency - Noted. 7. Hyperlipidemia; on high-dose atorvastatin - Continue statin as outlined above and check Lipid Profile. 8. IDDM; of unknown control on degludec 50U sq HS and insulin lispro 20U sq TID with history of HONK - Keep NPO for now except ice chips, sips and medications with evolving CVA and suspected acute LVO. Check FSBS q. 6 hours plus lowest intensity SSI. Check HgbA1c to objectively assess quality of diabetic control. 9. CAD; s/p stent (2004) and NSTEMI (2017, 2018 & 2020) on BASA and Plavix - Continue home regimen. 10. Ischemic Cardiomyopathy; with chronic chest pain on ranolazine - Maintain ranolazine as previous. 11. ISMO and prn NTG - Continue prn NTG. 12. History of CHF; with peripheral edema - Stable. Echocardiogram pending for #1 & #2. 13. History of bilateral LE DVT's; on apixaban - Noted. 14. History of sepsis - Noted with no signs of recurrence at this time. 15. History of appendectomy - Noted. 16. History of hernia; s/p repair (2008) - Noted. 17. Remote history of umbilical hernia repair (1971) - Noted for the sake of completeness. 18. History of sinusitis - Noted. 19. History of vitamin D deficiency - Check vitamin D level this admission. 20. History of thrush - Noted. 21. Seasonal allergies - Stable. 22. Listed allergy to Augmentin (rash) - Noted. 23. Listed allergy to ticagrelor (SOB) - We will avoid this agent. 24. Listed allergy to codeine (nausea) - Noted. 25. OA; with chronic Left shoulder pain and history of neck surgery - Give acetaminophen prn. 26. DVT/GI prophylaxis - SCD's only to minimize potential conversion to hemorrhagic CVA for #1. Pantoprazole 40 mg PO daily. Total time: Approximately (but not less than) 75 minutes. Charges/Coding Visit Charges Inpatient E&M: 73674 Init Hosp L3
[2025-02-11] VITALS (25 sets, daily range): BP systolic 152–214; BP diastolic 99–152; PULSE 88–102; RESP 17–26; TEMP 36.8–37.1; O2SAT 90–98; BMI 36.1
--- NOTE | 2025-02-11 00:16 | CDU_ITS ---
Reason For Study Reason For Study: Carotid stenosis Rt. Velocities/BP Lt. Velocities/BP Prox CCA 52.2/11.6 cm/sec. Prox CCA 52.2/16.3 cm/sec. Mid CCA 47.5/9.7 cm/sec. Mid CCA 51.3/14.5 cm/sec. Dist CCA 40/9.7 cm/sec. Dist CCA 35.2/11.6 cm/sec. Prox ICA 40.4/15.1 cm/sec. Prox ICA 31.5/12.3 cm/sec. Mid ICA 51.7/20.3 cm/sec. Mid ICA 47.2/18 cm/sec. Dist ICA 48.2/15.8 cm/sec. Dist ICA 57.1/23 cm/sec. Rt. ICA/CCA = 1.21. Lt. ICA/CCA = 1.11. Prox ECA 61.7/5 cm/sec. Prox ECA 64.5/6 cm/sec. Rt. Vert. 47.5/18.2 cm/sec. Lt. Vert. 35.8/10.9 cm/sec. Right Extracranial There is homogeneous, smooth atherosclerotic plaque noted in the right common carotid artery. There is homogeneous, smooth atherosclerotic plaque noted in the right internal carotid artery. There is intimal thickening but no significant atherosclerotic plaque noted in the right external carotid artery. Antegrade flow is noted in the right vertebral artery. Left Extracranial There is homogeneous, smooth atherosclerotic plaque noted in the left common carotid artery. There is heterogeneous, irregular atherosclerotic plaque noted in the left internal carotid artery. There is homogeneous, smooth atherosclerotic plaque noted in the left external carotid artery. Antegrade flow is noted in the left vertebral artery. Procedure Carotid Duplex [id number]. This is a Carotid Duplex examination using B-mode, color flow and specral Doppler. Exam performed portable in patient room. VL/Carotid Duplex Ultrasound Interpretation Summary Mild (<50%) stenosis right extracranial internal carotid. Mild (<50%) stenosis left extracranial internal carotid. Patent and antegrade vertebrals bilaterally. Ordering Physician: Mitchell Deras Referring Physician: Sivan Bowie Performed By: Roya Ralph RVT
--- NOTE | 2025-02-11 00:16 | MRI_ITS ---
EXAM: MRI of the brain without and with contrast CLINICAL HISTORY: Large vessel occlusion. Acute CVA (versus mass) on CT. COMPARISON: Head CT of 02/10/2025. TECHNIQUE: MRI of the brain without and with contrast. FINDINGS: The previously noted hypodensity on the CT of 02/10/2025, does appear to be an acute area of white matter infarction, given the diffusion restriction present the current examination. It is measured at approximately 8 x 12 x 10 mm. No adjacent edema or mass effect is seen. No midline shift is noted. No additional focus of diffusion restriction is seen. Ventricles appear symmetric and unchanged. No extra-axial fluid collection is noted. No orbital pathology is noted. Mild chronic appearing paranasal sinus disease is seen in the bilateral ethmoid and maxillary sinuses. No air-fluid level is noted. MRI/Brain W/WO Contrast IMPRESSION: Acute white matter infarction, with stable size, seen in the area hypodensity n oted in the CT of 02/11/2025. Reading Location: [id number]
--- NOTE | 2025-02-11 00:16 | ECHOCS_ITS ---
Reason For Study Reason For Study: TIA/CVA Procedure This was a 2D Doppler, Color Flow transthoracic echocardiogram. Contrast injection was performed. Exam performed portable in ICU/CCU. Left Ventricle Normal LV size. Moderate concentric left ventricular hypertrophy. Severe global left ventricular systolic dysfunction. The left ventricular ejection fraction is 25 %. Stage 3 diastolic dysfunction. There is severe global hypokinesis of the left ventricle. Right Ventricle Normal RV size. Normal systolic function. Atria The left atrium is moderately enlarged. The right atrium is moderately enlarged. Bubble contrast study negative for right to left interatrial shunt. Mitral Valve Normal mitral valve. Mild (1+) eccentric mitral valve insufficiency. Tricuspid Valve Normal tricuspid valve. Moderate (2+) tricuspid valve insufficiency. Pulmonary artery systolic pressure is 54 mmHg. Aortic Valve Trisinus/trileaflet aortic valve. Pulmonic Valve Normal pulmonic valve. Great Vessels Normal aortic root. The pulmonary artery is normal size. Normal inferior vena cava. Pericardium/Pleural No pericardial effusion. Medication Diluted definity 2ml given slow IV push to enhance endocardial definition. Performed a rapid injection of agitated mix of 9 cc saline and 1cc air to assess for atrial septal defect. MMode/2D Measurements & Calculations LVIDd: 5.4 cm IVSd: 1.5 cm Ao root diam: 3.9 cm LVIDs: 4.8 cm LVPWd: 1.5 cm RVDd: 4.5 cm FS: 11.6 % LAV(MOD-bp): 107.2 ml LVAd ap4: 38.3 cm2 LVAd ap2: 46.7 cm2 LAV(MOD-bp) Indexed: 48.8 ml/m2 LVLd ap4: 8.9 cm LVLd ap2: 9.6 cm LAV(MOD-sp2): 105.8 ml EDV(MOD-sp4): 134.6 ml EDV(MOD-sp2): 185.1 ml LAV(MOD-sp4): 105.1 ml EDV(sp4-el): 141.1 ml EDV(sp2-el): 192.9 ml LVAs ap4: 31.0 cm2 LVAs ap2: 36.7 cm2 LVLs ap4: 8.2 cm LVLs ap2: 8.9 cm ESV(MOD-sp4): 95.0 ml ESV(MOD-sp2): 128.2 ml ESV(sp4-el): 99.2 ml ESV(sp2-el): 128.5 ml EF(MOD-sp4): 29.4 % EF(MOD-sp2): 30.8 % EF(sp4-el): 29.7 % SV(MOD-sp4): 39.5 ml SV(MOD-sp2): 57.0 ml SV(sp4-el): 41.9 ml SI(MOD-sp4): 18.0 ml/m2 SI(MOD-sp2): 25.9 ml/m2 LA A4 area: 30.7 cm2 LA dimension(2D): 5.0 cm RA A4 area: 23.9 cm2 TAPSE: 1.5 cm Time Measurements MV dec time: 0.13 sec Doppler Measurements & Calculations MV E max pancho: 101.6 cm/sec Lat Peak E' Pancho: 6.3 cm/sec Med Peak E' Pancho: 7.4 cm/sec MV A max pancho: 23.5 cm/sec E/E' lat: 16.0 E/E' med: 13.7 MV E/A: 4.3 MV V2 max: 115.0 cm/sec MV dec slope: 809.3 cm/sec2 Ao V2 max: 90.8 cm/sec MV max P.3 mmHg Ao max P.3 mmHg MV V2 mean: 66.1 cm/sec Ao V2 mean: 64.7 cm/sec MV mean P.1 mmHg Ao mean P.9 mmHg MV V2 VTI: 22.6 cm Ao V2 VTI: 15.5 cm AV (velocity ratio): 0.82 LV V1 max: 77.6 cm/sec TR max pancho: 344.4 cm/sec LV V1 max P.4 mmHg TR max P.5 mmHg LV V1 mean P.4 mmHg LV V1 mean: 57.1 cm/sec LV V1 VTI: 12.7 cm ECHO/Echo Complete W/ Contrast Interpretation Summary Normal LV size. Severe global left ventricular systolic dysfunction. Bubble contrast study negative for right to left interatrial shunt. Mild (1+) eccentric mitral valve insufficiency. Moderate concentric left ventricular hypertrophy. The left ventricular ejection fraction is 25 %. Stage 3 diastolic dysfunction. Compared to previous study, the left ventricular systolic function has worsened .. Ordering Physician: Mitchell Deras Performed By: Jose Bruner RCS
[2025-02-11] MEDS: KCL 20MEQ in 0.9% NS 20 MEQ/1,000 ML IV.SOLN. 50 MEQ IV (01:10)
[2025-02-11] MEDS: MethylPREDNISolone 125 MG/2 ML Vial IV (01:24)
[2025-02-11] MEDS: Albuterol 2.5 MG/3 ML VIAL.NEB. INHALATION (01:44)
[2025-02-11 01:58] LABS: Hemoglobin A1c 10.8 % (<=5.6)
[2025-02-11 01:59] LABS: Alcohol, Blood (Medical)-Serum < 10.1 mg/dL (<=10.0)
[2025-02-11 02:44] LABS: FOLATES,SERUM (FOLIC ACID) 7.12 ng/mL (4.60-34.80); Thyroid Stim Hormone (TSH) 0.973 uIU/mL (0.300-4.200); Vitamin B12 573 pg/mL (180-914)
[2025-02-11 03:15] LABS: Amphetamine Urine NEGATIVE (<1000 ng/mL); Barbiturate Urine NEGATIVE (< 200 ng/mL); Benzodiazepine Urine NEGATIVE (< 200 ng/mL); Buprenorphine Urine NEGATIVE (< 200 ng/mL); Cocaine Urine NEGATIVE (< 300 ng/mL); Fentanyl, Urine NEGATIVE; Methadone Urine NEGATIVE (< 300 ng/mL); Opiates Urine NEGATIVE (< 300 ng/mL); Oxycodone, Urine NEGATIVE (< 100 ng/mL); PCP Urine NEGATIVE (< 25 ng/mL); THC Urine NEGATIVE (< 50 ng/mL)
[2025-02-11] MEDS: 0.9% Saline Lock 10 ML Syringe IV ×2 (03:15→13:05)
[2025-02-11] MEDS: Morphine 2 MG/ML Syringe IV (03:16)
[2025-02-11 06:06] LABS: Bedside Glucose 435 mg/dL (74-106)
[2025-02-11] MEDS: Insulin Lispro 100 UNIT/ML INSULN.PEN SC ×2 (06:23→10:59)
[2025-02-11 06:27] LABS: Cholesterol 215 mg/dL (<=200); High Density Lipoprotein 40 mg/dL; Low Density Lipoprotein Calc. 160 mg/dL; Triglycerides 76 mg/dL; Very Low Density Lipoprotein 15 mg/dL (5-40); cholesterol:hdl ratio screen 5.44
--- NOTE | 2025-02-11 06:56 | PCM.PN.HOSP ---
Reason for Visit Reason for Visit: Diagnoses Other specified bacterial agents as the cause of diseases classified elsewhere (02/11/25) Obesity, unspecified (02/11/25) Essential (primary) hypertension (02/11/25) Cerebral infarction, unspecified (02/11/25) Acute bronchitis due to other specified organisms (02/11/25) Chronic obstructive pulmonary disease with (acute) exacerbation (02/11/25) Abnormal findings on diagnostic imaging of skull and head, not elsewhere classified (02/11/25) Subjective Subjective Had slurred speech and difficulty formulating words that began on Sunday. Ongoing, but improved. Objective Data Objective Data Vital Signs: Vital Signs Temp Pulse Resp BP Pulse Ox O2 Del Method 36.8 C 102 H 18 198/133 H 93 Room Air 02/11/25 00:38 02/11/25 06:00 02/11/25 06:00 02/11/25 06:00 02/11/25 06:00 02/11/25 06:00 Oxygen Delivery Method Room Air Weight: 107.9 kg Body Mass Index (BMI) 36.1 Intake & Output: Intake and Output for Last 24 Hours 02/09/25 02/10/25 02/11/25 23:59 23:59 23:59 Intake Total 50 / 50 1405 / 1405 Output Total 2500 / 2500 Balance 50 / 50 -1095 / -1095 Lab / Micro Data 02/10/25 18:11 02/10/25 18:11 Labs: Laboratory Results - last 24 hr 02/10/25 18:11: WBC 9.4, RBC 4.92, Hgb 13.5, Hct 41.1, MCV 83.5, MCH 27.4, MCHC 32.8, RDW Std Deviation 42.5, RDW Coeff of Narcisa 13.9, Plt Count 317, MPV 10.6, Immature Gran % (Auto) 0.300, Neut % (Auto) 61.8, Lymph % (Auto) 25.5, Roane % (Auto) 9.2, Eos % (Auto) 2.4, Baso % (Auto) 0.8, Absolute Neuts (auto) 5.8, Absolute Lymphs (auto) 2.41, Nucleated RBC % 0, Sodium 137, Potassium 4.3, Chloride 102, Carbon Dioxide 23.1, Anion Gap 12, BUN 24 H, Creatinine 1.09, Estim Creat Clear Calc 93.49, Est GFR (MDRD) Non-Af 81, BUN/Creatinine Ratio 22.0 H, Glucose 255 H, Calcium 9.1, Troponin T High Sens 25 H, NT pro BNP II 709, TSH 3.160, Free T4 1.20 02/10/25 18:16: POC Glucose 234 H 02/10/25 18:48: Lactic Acid 1.9 02/10/25 20:11: Troponin T Hi Sens 2 Hr 24 H 02/11/25 01:29: Hemoglobin A1c 10.8, Vitamin B12 573, Serum Folate 7.12, TSH 0.973, Ethyl Alcohol < 10.1 02/11/25 02:30: Urine Opiates Screen NEGATIVE, U Buprenorphine Qual NEGATIVE, Ur Oxycodone Screen NEGATIVE, Urine Methadone Screen NEGATIVE, Urine Fentanyl Screen NEGATIVE, Ur Barbiturates Screen NEGATIVE, Ur Phencyclidine Scrn NEGATIVE, Ur Amphetamines Screen NEGATIVE, U Benzodiazepines Scrn NEGATIVE, Urine Cocaine Screen NEGATIVE, U Cannabinoids Screen NEGATIVE 02/11/25 05:39: POC Glucose 435 H 02/11/25 05:44: Triglycerides 76, Cholesterol 215 H, LDL Cholesterol, Calc 160, VLDL Cholesterol 15, HDL Cholesterol 40, Cholesterol/HDL Ratio 5.44 ABG Data ABG results: ABG 02/10/25 19:09 Specimen Type TAMIKA Sample Site Not entered VBG pH 7.38 VBG pO2 52 H VBG HCO3 28 H VBG Total CO2 30 VBG O2 Sat (Calc) 85 H VBG Base Excess 3 POC Mix VBG pCO2 Pt Tmp 47.6 O2 Delivery Device Room Air Radiography Diagnostic Testing: Radiology Impression Chest X-Ray 02/10/25 18:11 IMPRESSION: Diffuse bilateral pulmonary infiltrates. Differential includes diffuse infection versus inflammatory process within the lungs. Follow-up until complete resolution is recommended. These findings are new since prior examination. Reading Location: [id number] Brain CT 02/10/25 18:31 IMPRESSION: 1.9 by 1.1 x 1.3 cm hypodense area seen within the deep white matter along the right lateral convexity. This is new since prior examination. Differential possibility includes, but not limited to acute/subacute infarct versus intracranial mass. Recommend MRI brain for further evaluation at this time. Red Alert: 1.9 by 1.1 x 1.3 cm hypodense area seen within the deep white matter along the right lateral convexity. This is new since prior examination. Differential possibility includes, but not limited to acute/subacute infarct versus intracranial mass. Recommend MRI brain for further evaluation at this time. The critical information above was relayed directly by me by telephone to Jasbir Curry on 02/10/2025 at 8:00 pm with readback verification. Reading Location: [id number] Head/Neck CTA 02/10/25 18:31 IMPRESSION: 1. 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 Small caliber distal right ARELY. Consider neuro IR consultation and/or neurology consult for discussion of endovascular thrombectomy versus anticoagulation. 2. Approximately 50% stenosis of the left carotid artery by NASCET criteria. Dr. Thompson discussed these findings via telephone with Dr. Curry at 8:50 pm on 02/10/25. Reading Location: [facility] Physical Exam Const alert and no apparent distress Constitutional Narrative: up in chair HEENT head/scalp atraumatic and moist oral mucous membranes Neuro moves all extremities and no focal motor deficits Sensorium / Orientation: awake and alert Speech: speech normal Assessment & Plan Assessment/Plan (1) CVA (cerebral vascular accident): PLAN: CTA shows Large vessel occlusion of the A1 segment of the right anterior cerebral artery, with retrograde filling via the anterior communicating artery. Small caliber distal right ARELY. Neurology recs per ED note (formal note not yet available in [facility]) who advised to give ASA and clopidogrel (clopidogrel not given as pt had already taken it that AM) and to admit to the ICU. Neurology felt the LVO was likely a chronic LVO. Continue ASA, clopidogrel, HIS. No acute indication for transfer per neurology. MRI brain shows an acute infarct. Onset was 02/08 Neurology recommending continuing DAPT, statin. Event monitor. (2) Pneumonia: PLAN: Chest x-ray personally viewed and showed bilateral pulmonary infiltrates. Will add ceftriaxone and azithromycin. DC doxycycline. Pulmonary toilet. Strep and legionella antigens negative. Check SCx. DC with levofloxacin (3) Uncontrolled hypertension: PLAN: Given delayed presentation of CVA, can resume home medications: amlodipine 10, carvedilol 25 BID, clonidine 0.1 BID, furosemide 60 daily, lisinopril 20 BID, isosorbide 60 BID Add PRN hydralazine Continue previous home medications. I had seen the patient on 10/12 for a [employer] for coughing fit then led to a syncopal episode. I had recommended that lisinopril be discontinued at that time, but it appears it has been continued. It is unclear if his cough was lisinopril-induced. So, will continue it for the time being. (4) COPD exacerbation: PLAN: Complicated by pneumonia DC methylpred. Start prednisone for 5 days. BDs PLAN: Plan DM2: a1c 10.8. Continue glargine and SSI. Obesity class II: complicates care and recovery HLP: continue statin CAD: stable on DAPT, atorvastatin. VTE prophylaxis: SCDs
[2025-02-11] MEDS: Aspirin 81 MG TAB.CHEW PO (07:59)
[2025-02-11] MEDS: Potassium Chloride Oral Tablet 20 MEQ PO (07:59)
[2025-02-11] MEDS: Carvedilol 25 MG Tablet PO (07:59)
[2025-02-11] MEDS: Lactobacillis Acidophilus 1 CAP PO (10:35)
[2025-02-11] MEDS: Isosorbide Mononitrate 60 MG Tablet PO (10:35)
[2025-02-11] MEDS: cloNIDine HCl 0.1 MG Tablet PO (10:35)
[2025-02-11] MEDS: Pantoprazole Sodium 40 MG Tablet PO (10:35)
[2025-02-11] MEDS: guaiFENesin 600 MG Tablet PO (10:35)
[2025-02-11] MEDS: amLODIPine 10 MG Tablet PO (10:35)
[2025-02-11] MEDS: predniSONE 20 MG Tablet 40 MG PO (10:35)
[2025-02-11] MEDS: Furosemide 20 MG Tablet 60 MG PO (10:35)
[2025-02-11] MEDS: Clopidogrel Bisulfate 75 MG Tablet PO (10:36)
[2025-02-11] MEDS: Lisinopril 20 MG Tablet PO (10:36)
[2025-02-11] MEDS: Ranolazine 500 MG Tablet 1000 MG PO (10:36)
[2025-02-11] MEDS: Ceftriaxone 1 GM/50 ML BAG IV (10:50)
--- NOTE | 2025-02-11 11:03 | CASEMGMT ---
VETO LUBIN Assessment Face to Face with patient for initial transition planning/care coordination assessment. RN CM introduced self and role at [facility], pt voices understanding. Pt is A&Ox4 and is resting comfortably in the chair and is calm. Pt and RN @ bedside. Care providers, pharmacy, and demographics verified. Admitting dx: LVO CARMEN Strata: 3 PCP: Jamir Specialists: Song (Pulmonary), King CHAPA (Endocrinology) Preferred Pharmacy: [facility] Insurance: SP. Gordon notified and to see pt to apply for JOHN. Prescription Benefit: None. Pt is educated about Good Rx. CM to follow Rx costs @ [place]. LNOK: Cassia Morrison (W) Living Arrangements: Pt lives with his and 17 y/o son in the second story of an apartment complex with 22 steps to manage with a handrail ADLs/IADLs: Pt reports that he is completely independent Transportation: Self, . Denies concerns DME: Pt reports that he has a functioning BGM with sufficient supplies at the moment. However, pt states that his DM medications can be unaffordable at times due to no insurance assistance. Pt also states that he has a nebulizer but denies further DME uses or needs HHC/SNF: Denies Hx or needs Pt?s goal: Home Plan: Home, follow Rx costs @ DC. Current 6-Click is 22. Pt denies the need for any form of home care or OP therapy. Pt states that he feels safe returning home with his family once he is medically ready and denies further questions or concerns at this time. CM to follow. Wu Fernando RN, CM
[2025-02-11 11:22] LABS: Bedside Glucose 339 mg/dL (74-106)
--- NOTE | 2025-02-11 12:48 | NEURO.CONS ---
Assessment and Plan: Neuro Assessment/Plan 54 y/o man with h/o HTN, DLD, obesity, DM, CAD s/p stent and NSTEMI on plavix and ASA, b/l LE DVT not on AC p/w confusion for the last 2 days. He denies aphasia and just reports confusion. He reported that his symptoms have been [id number] for the past several days and since things were not getting better they decided to come in for further evaluation and treatment. He also admits to intermittent chest discomfort that is pressure-like, heavy, moderate, nonradiating with associated shortness of breath and wheezing with cough productive of increasing yellowish sputum, but he denies chest pain at this time. CTA- right A1 occlusion w/ retrograde filling through ACom and 50% of LICA. CT head- hypodensity in deep white matter on right side. A1c-10.8. LDL-160. MRI brain -right CR stroke Diagnosis: Right CR stroke, cryptogenic Plan: Continue ASA and plavix along with statin. Event monitor on discharge. Follow up TTE and workup for chest pain. OT/PT/[employer] I personally attended this patient and spent a total time of 70 minutes evaluating this patient including clinical assessment, review of chart, medical history imaging, and determining appropriate treatment and workup. HPI Consult Data Date of Consult: 02/11/25 HPI Narrative HPI Narrative: 54 y/o man with h/o HTN, DLD, obesity, DM, CAD s/p stent and NSTEMI on plavix and ASA, b/l LE DVT not on AC p/w confusion for the last 2 days. He denies aphasia and just reports confusion. He reported that his symptoms have been [id number] for the past several days and since things were not getting better they decided to come in for further evaluation and treatment. He also admits to intermittent chest discomfort that is pressure-like, heavy, moderate, nonradiating with associated shortness of breath and wheezing with cough productive of increasing yellowish sputum, but he denies chest pain at this time. He denies any recent sick contacts or similar previous episodes plus he states he has been taking his medications as prescribed. He admits to associated headache and lightheadedness with a feeling like he is drifting to the Left but he is able to compensate in addition to mildly dysarthric speech. He denies related fever, chills, nausea, vomiting, diarrhea, constipation, abdominal pain, palpitations, heart racing, dysuria, hematuria, rash or back pain but he does admit to taking 2 Excedrin twice daily routinely. CTA- right A1 occlusion w/ retrograde filling through ACom and 50% of LICA. CT head- hypodensity in deep white matter on right side. Today, he reports feeling better with NIHSS-0. [facility] Medical History History of DVT (deep vein thrombosis) Respiratory insufficiency Elevated troponin Acute bronchitis COPD exacerbation Congestive heart failure Acute sinusitis, unspecified Left shoulder pain Insulin dependent diabetes mellitus Coronary artery disease Essential hypertension Cluster headache Migraine Headache Diabetes Obesity Community acquired pneumonia Smoker Asthma Myocardial infarct Ischemic cardiomyopathy Obesity (BMI 30.0-34.9) Chronic obstructive pulmonary disease (COPD) Nicotine dependence COPD (chronic obstructive pulmonary disease) Hyperlipidemia History of non-ST elevation myocardial infarction (NSTEMI) (11/22/20) Atherosclerosis of [place] coronary artery of [place] heart without angina pectoris Non-ST elevation [place] (NSTEMI) Home Medications ?Medication ?Instructions ?Recorded ?Last Taken ?Type aspirin 81 mg chewable tablet 81 mg PO DAILY heart health 04/27/22 02/10/25 History loratadine 10 mg tablet 10 mg PO DAILY PRN allergies 06/26/22 Unknown History amlodipine 10 mg tablet 10 mg PO DAILY blood pressure #90 06/25/23 02/10/25 Rx tabs lisinopril 20 mg tablet 20 mg PO BID blood pressure #180 11/26/23 Unknown Rx tabs insulin degludec 200 unit/mL (3 50 unit (0.25 mL) subcut QHS blood 12/28/23 02/09/25 Rx mL) subcutaneous pen (Tresiba sugar 3 months #22.5 mL FlexTouch U-200 insulin) ranolazine 1,000 mg 1,000 mg PO BID heart #60 tabs 01/03/24 02/10/25 Rx tablet,extended release,12 hr clopidogrel 75 mg tablet (Plavix) 75 mg PO DAILY anti platelet #90 01/15/24 02/10/25 Rx tabs isosorbide mononitrate 60 mg 60 mg PO BID heart #180 TABLETS 01/15/24 02/10/25 Rx tablet,extended release 24 hr nitroglycerin 0.4 mg sublingual 0.4 mg sublingual Q5-15M chest 07/22/24 02/08/25 Rx tablet pain #25 tabs potassium chloride 20 mEq 20 meq PO BIDCM #60 tabs 10/13/24 Unknown Rx tablet,extended release(part/cryst) carvedilol 25 mg tablet 25 mg PO BIDCM heart health #180 10/27/24 02/10/25 Rx tabs clonidine HCl 0.1 mg tablet 0.1 mg PO BID blood pressure #180 12/15/24 02/10/25 Rx tabs furosemide 20 mg tablet (Lasix) 60 mg (3 x 20 mg) PO DAILY #270 01/15/25 02/10/25 Rx tabs guaifenesin 1,200 mg tablet, 600 mg PO BID 02/10/25 02/10/25 History extended release 12 hr (Mucus Relief ER) insulin lispro 100 unit/mL 20 unit subcut TIDAC PRN DIABETES 02/10/25 02/10/25 History subcutaneous pen (Humalog KwikPen (U-100) Insulin) albuterol sulfate 90 mcg/actuation 2 puff inhalation 4X/DAY PRN 02/11/25 Unknown Rx aerosol inhaler Shortness Of Breath #8.5 grams atorvastatin 80 mg tablet 80 mg PO QHS cholesterol #90 tabs 02/11/25 Unknown Rx levofloxacin 750 mg tablet 750 mg PO DAILY #5 tabs 02/11/25 Unknown Rx prednisone 20 mg tablet 40 mg (2 x 20 mg) PO BREAKFAST #8 02/11/25 Unknown Rx tabs Allergy/AdvReac Type Severity Reaction Status Date / Time amoxicillin trihydrate (From Allergy Rash Verified 02/10/25 17:57 Augmentin) potassium clavulanate (From Allergy Rash Verified 02/10/25 17:57 Augmentin) ticagrelor (From Brilinta) Allergy Shortness Verified 02/10/25 17:57 of breath codeine AdvReac Nausea Verified 02/10/25 17:57 Family History Sister Myocardial infarction, Onset Age: 41 Diabetes Mother COPD (chronic obstructive pulmonary disease) Asthma Rheumatoid arthritis CVA (cerebral vascular accident) Hypertension Grandmother Diabetes Surgical History History of coronary artery stent placement (12/25/23) History of hernia repair (2008) History of umbilical hernia repair (1971) History of neck surgery History of appendectomy Social History household members: spouse housing: house Smoking Status: Current every day smoker tobacco type: cigarettes Tobacco: How many years used: 20 Electronic Cigarette Use: not used second hand exposure: Yes alcohol intake: current alcohol intake frequency: 0-2 drinks per day Alcohol type: beer substance use type: does not use caffeine: Yes Type: carbonated beverages Number of servings: 2 and tea Number of servings: 6 what type of physical activity do you participate in: none Vital Signs Vital Signs Vital Signs: 02/10/25 17:56 02/10/25 18:08 02/10/25 18:12 Temperature 98.7 F Temperature Source Oral Pulse Rate 97 Respiratory Rate 18 Respiratory Effort Short of Breath Respiratory Depth Respiratory Pattern Blood Pressure 167/109 H Blood Pressure Mean 128 Blood Pressure Source Blood Pressure Position Blood Pressure Location Pulse Ox 95 Oxygen Delivery Method Room Air Room Air Oxygen Flow Rate (L/min) 02/10/25 18:46 02/10/25 18:53 02/10/25 20:00 Temperature Temperature Source Pulse Rate 88 88 83 Respiratory Rate 20 H Respiratory Effort Respiratory Depth Respiratory Pattern Normal Blood Pressure 173/97 H 170/116 H Blood Pressure Mean 122 134 Blood Pressure Source Blood Pressure Position Blood Pressure Location Pulse Ox 98 94 Oxygen Delivery Method Room Air Room Air Oxygen Flow Rate (L/min) 02/10/25 21:00 02/10/25 21:10 02/10/25 21:23 Temperature 98.7 F Temperature Source Oral Pulse Rate 86 89 85 Respiratory Rate 24 H 27 H Respiratory Effort Respiratory Depth Respiratory Pattern Blood Pressure 174/116 H 184/119 H Blood Pressure Mean 135 140 Blood Pressure Source Monitor Blood Pressure Position Semi-Fowlers Semi-Fowlers Blood Pressure Location Left Arm Left Arm Pulse Ox 97 95 93 Oxygen Delivery Method Room Air Room Air Room Air Oxygen Flow Rate (L/min) 02/10/25 21:40 02/10/25 21:55 02/10/25 22:00 Temperature Temperature Source Pulse Rate 87 89 Respiratory Rate 21 H 22 H Respiratory Effort Respiratory Depth Respiratory Pattern Blood Pressure 177/131 H 191/135 H Blood Pressure Mean 146 153 Blood Pressure Source Monitor Monitor Blood Pressure Position Semi-Fowlers Semi-Fowlers Blood Pressure Location Left Arm Right Forearm Pulse Ox 95 93 95 Oxygen Delivery Method Room Air Room Air Room Air Oxygen Flow Rate (L/min) 02/10/25 22:10 02/10/25 22:15 02/10/25 22:30 Temperature Temperature Source Pulse Rate 86 Respiratory Rate 22 H Respiratory Effort Respiratory Depth Respiratory Pattern Blood Pressure 183/132 H 188/133 H 188/128 H Blood Pressure Mean 149 151 148 Blood Pressure Source Blood Pressure Position Blood Pressure Location Pulse Ox 93 Oxygen Delivery Method Oxygen Flow Rate (L/min) 02/10/25 22:34 02/10/25 23:00 02/10/25 23:00 Temperature Temperature Source Pulse Rate 93 84 Respiratory Rate 24 H 21 H Respiratory Effort Respiratory Depth Respiratory Pattern Tachypnea Blood Pressure 186/124 H Blood Pressure Mean 144 Blood Pressure Source Blood Pressure Position Blood Pressure Location Pulse Ox 95 96 Oxygen Delivery Method Room Air Room Air Oxygen Flow Rate (L/min) 02/10/25 23:30 02/10/25 23:33 02/11/25 00:00 Temperature 98.7 F Temperature Source Pulse Rate 99 99 101 H Respiratory Rate 26 H 24 H 21 H Respiratory Effort Respiratory Depth Respiratory Pattern Blood Pressure 146/119 H 146/119 H 174/111 H Blood Pressure Mean 128 128 132 Blood Pressure Source Monitor Blood Pressure Position Semi-Fowlers Blood Pressure Location Left Arm Pulse Ox 94 93 95 Oxygen Delivery Method Room Air Room Air Oxygen Flow Rate (L/min) 02/11/25 00:38 02/11/25 00:47 02/11/25 01:00 Temperature 98.2 F Temperature Source Temporal Pulse Rate 101 H 100 99 Respiratory Rate 21 H 20 H 17 Respiratory Effort Respiratory Depth Respiratory Pattern Blood Pressure 191/127 H 195/115 H 199/137 H Blood Pressure Mean 148 141 157 Blood Pressure Source Monitor Monitor Monitor Blood Pressure Position Semi-Fowlers Semi-Fowlers Semi-Fowlers Blood Pressure Location Right Arm Left Arm Left Arm Pulse Ox 97 98 96 Oxygen Delivery Method Room Air Room Air Room Air Oxygen Flow Rate (L/min) 02/11/25 01:00 02/11/25 01:16 02/11/25 01:30 Temperature Temperature Source Pulse Rate 100 97 Respiratory Rate 18 19 H Respiratory Effort Normal Non-Labored Respiratory Depth Normal Respiratory Pattern Normal Blood Pressure 204/103 H 175/125 H Blood Pressure Mean 136 141 Blood Pressure Source Monitor Monitor Blood Pressure Position Semi-Fowlers Semi-Fowlers Blood Pressure Location Left Arm Left Arm Pulse Ox 93 96 Oxygen Delivery Method Room Air Room Air Room Air Oxygen Flow Rate (L/min) 02/11/25 01:44 02/11/25 02:00 02/11/25 03:00 Temperature Temperature Source Pulse Rate 95 102 H 100 Respiratory Rate 22 H 23 H 25 H Respiratory Effort Respiratory Depth Respiratory Pattern Tachypnea Blood Pressure 198/139 H 214/140 H Blood Pressure Mean 158 164 Blood Pressure Source Monitor Monitor Blood Pressure Position Semi-Fowlers Semi-Fowlers Blood Pressure Location Left Arm Left Arm Pulse Ox 96 95 Oxygen Delivery Method Room Air Room Air Oxygen Flow Rate (L/min) 02/11/25 03:16 02/11/25 04:00 02/11/25 04:05 Temperature Temperature Source Pulse Rate 97 95 Respiratory Rate 21 H 26 H Respiratory Effort Normal Non-Labored Respiratory Depth Normal Respiratory Pattern Normal Blood Pressure 207/99 H 205/122 H Blood Pressure Mean 135 149 Blood Pressure Source Monitor Monitor Blood Pressure Position Semi-Fowlers Semi-Fowlers Blood Pressure Location Left Arm Left Arm Pulse Ox 96 95 Oxygen Delivery Method Room Air Room Air Room Air Oxygen Flow Rate (L/min) 02/11/25 05:00 02/11/25 06:00 02/11/25 07:00 Temperature Temperature Source Pulse Rate 98 102 H 97 Respiratory Rate 20 H 18 19 H Respiratory Effort Respiratory Depth Respiratory Pattern Blood Pressure 209/137 H 198/133 H 207/133 H Blood Pressure Mean 161 154 157 Blood Pressure Source Monitor Monitor Monitor Blood Pressure Position Semi-Fowlers Semi-Fowlers Semi-Fowlers Blood Pressure Location Left Arm Left Arm Left Arm Pulse Ox 95 93 95 Oxygen Delivery Method Room Air Room Air Room Air Oxygen Flow Rate (L/min) 02/11/25 07:10 02/11/25 08:00 02/11/25 08:00 Temperature 98.8 F Temperature Source Temporal Pulse Rate 97 95 Respiratory Rate 22 H Respiratory Effort Respiratory Depth Respiratory Pattern Blood Pressure 203/107 H Blood Pressure Mean 139 Blood Pressure Source Monitor Blood Pressure Position Semi-Fowlers Blood Pressure Location Left Arm Pulse Ox 94 94 Oxygen Delivery Method Room Air Room Air Oxygen Flow Rate (L/min) 02/11/25 08:56 02/11/25 09:06 02/11/25 09:16 Temperature Temperature Source Pulse Rate 96 91 Respiratory Rate 20 H 18 18 Respiratory Effort Respiratory Depth Respiratory Pattern Blood Pressure 170/135 H 186/152 H 195/124 H Blood Pressure Mean 146 163 147 Blood Pressure Source Monitor Monitor Monitor Blood Pressure Position Supine Supine Supine Blood Pressure Location Left Arm Left Arm Left Arm Pulse Ox 93 92 92 Oxygen Delivery Method Nasal Cannula Venturi Mask Nasal Cannula Oxygen Flow Rate (L/min) 2 2 2 02/11/25 09:26 02/11/25 10:00 02/11/25 11:00 Temperature Temperature Source Pulse Rate 91 95 94 Respiratory Rate 18 21 H 24 H Respiratory Effort Respiratory Depth Respiratory Pattern Blood Pressure 191/133 H 188/125 H 158/132 H Blood Pressure Mean 152 146 140 Blood Pressure Source Monitor Monitor Monitor Blood Pressure Position Supine Semi-Fowlers Semi-Fowlers Blood Pressure Location Left Arm Left Arm Left Arm Pulse Ox 90 94 94 Oxygen Delivery Method Nasal Cannula Room Air Room Air Oxygen Flow Rate (L/min) 2 Weight Weight: 107.9 kg Body Mass Index (BMI) 36.1 EEG Results Procedure Details EEG Procedure Details: LATONYA ELDER is a 54 year old M with a past medical history of , who presents for evaluation of Electroencephalogram on DATE at TIME NIHSS NIHSS Nursing Documentation NIHSS Nursing Documentation: NIH Stroke Scale Start: 02/10/25 18:30 Freq: Status: Discharge Protocol: Activity Type Activity Date Activity User E-sign Co-sign Detail Recorded Client Recorded Date Recorded By Document 02/10/25 18:30 [facility] [id number] 02/10/25 18:31 [facility] 02/10/25 18:30 NIH Stroke Scale [NIHSS] A score of 0 is normal or asymptomatic . Total possible score is 42. Inpatient: RN or Physician to activate a stroke alert for onset of new stroke symptoms or with NIHSS increase >/= 3 points. Following change in neurological status, NIHSS will be performed per physician order or more frequently PRN. -1a. Level of Consciousness Alert; keenly responsive -1b. LOC Questions Answers BOTH questions correctly. -1c. LOC Commands Performs both tasks correctly . -2. Best Gaze Normal -3. Visual No visual loss -4. Facial Palsy Normal symmetrical movements -5a. Left Arm No drift; arm holds 90 (or 45 ) degrees for full 10 seconds -5b. Right Arm No drift; arm holds 90 (or 45 ) degrees for full 10 seconds -6a. Left Leg No drift; leg holds 30-degree position for full 5 seconds -6b. Right Leg No drift; leg holds 30-degree position for full 5 seconds -7. Limb Ataxia Absent -8. Sensory Normal; no sensory loss -9. Best Language No aphasia; normal -10. Dysarthria Normal -11. Extinction and Inattention No abnormality -Total 0 Query Text:A score of 0 is normal or asymptomatic. Total possible score is 42 . ED: Notify Physician for NIHSS increase by > / = 3 points. Inpatient: RN or Physician to activate a stroke alert for NIHSS increase of > / = 3 points. NIHSS: Ischemic Stroke/TIA Start: 02/11/25 00:32 Text: For ICU Patients: NIH sroke scale at Status: Active presentation and every 2 hours or with change in RN caregiver Freq: [id number] Protocol: Activity Type Activity Date Activity User E-sign Co-sign Detail Recorded Client Recorded Date Recorded By Document 02/11/25 10:00 CG [id number] 02/11/25 11:20 CG 02/11/25 10:00 -1a. Level of Consciousness Alert; keenly responsive -1b. LOC Questions Answers BOTH questions correctly. -1c. LOC Commands Performs both tasks correctly . -2. Best Gaze Normal -3. Visual No visual loss -4. Facial Palsy Normal symmetrical movements -5a. Left Arm No drift; arm holds 90 (or 45 ) degrees for full 10 seconds -5b. Right Arm No drift; arm holds 90 (or 45 ) degrees for full 10 seconds -6a. Left Leg No drift; leg holds 30-degree position for full 5 seconds -6b. Right Leg No drift; leg holds 30-degree position for full 5 seconds -7. Limb Ataxia Absent -8. Sensory Normal; no sensory loss -9. Best Language No aphasia; normal -10. Dysarthria Normal -11. Extinction and Inattention No abnormality -Total 0 Query Text:A score of 0 is normal or asymptomatic. Total possible score is 42 . ED: Notify Physician for NIHSS increase by > / = 3 points. Inpatient: RN or Physician to activate a stroke alert for NIHSS increase of > / = 3 points. Thrombolytic: Vital Signs & NIHSS Start: 02/10/25 21:07 Freq: Q30M Status: Complete Protocol: Activity Type Activity Date Activity User E-sign Co-sign Detail Recorded Client Recorded Date Recorded By Document 02/11/25 01:00 TD [id number] 02/11/25 01:09 TD 02/11/25 01:00 Vital Signs [Pulse] -Pulse Rate (60-100) 99 -Pulse Location Monitor [Respirations] -Respiratory Rate (12-18) 17 -Respiratory rate source Monitor -Pulse Oximetry 96 -Oxygen Delivery Method Room Air [Blood Pressure] -Blood Pressure (90/60-120/80) 199/137 H -Blood Pressure Mean 157 -Source Monitor -Position Semi-Fowlers -Blood Pressure Location Left Arm -Is the SBP > or = 180 Yes -Is the DBP > or = 105 Yes NIH Stroke Scale [NIHSS] A score of 0 is normal or asymptomatic . Total possible score is 42. Inpatient: RN or Physician to activate a stroke alert for onset of new stroke symptoms or with NIHSS increase >/= 3 points. Following change in neurological status, NIHSS will be performed per physician order or more frequently PRN. -1a. Level of Consciousness Alert; keenly responsive -1b. LOC Questions Answers BOTH questions correctly. -1c. LOC Commands Performs both tasks correctly . -2. Best Gaze Normal -3. Visual No visual loss -4. Facial Palsy Normal symmetrical movements -5a. Left Arm No drift; arm holds 90 (or 45 ) degrees for full 10 seconds -5b. Right Arm No drift; arm holds 90 (or 45 ) degrees for full 10 seconds -6a. Left Leg No drift; leg holds 30-degree position for full 5 seconds -6b. Right Leg No drift; leg holds 30-degree position for full 5 seconds -7. Limb Ataxia Absent -8. Sensory Normal; no sensory loss -9. Best Language No aphasia; normal -10. Dysarthria Normal -11. Extinction and Inattention No abnormality -Total 0 Query Text:A score of 0 is normal or asymptomatic. Total possible score is 42 . ED: Notify Physician for NIHSS increase by > / = 3 points. Inpatient: RN or Physician to activate a stroke alert for NIHSS increase of > / = 3 points. NIHSS 1a. Level of Consciousness: Alert; keenly responsive 1b. LOC Questions: Answers BOTH questions correctly. 1c. LOC Commands: Performs both tasks correctly. 2. Best Gaze: Normal 3. Visual: No visual loss 4. Facial Palsy: Normal symmetrical movements 5a. Left Arm: No drift; arm holds 90 (or 45) degrees for full 10 seconds 5b. Right Arm: No drift; arm holds 90 (or 45) degrees for full 10 seconds 6a. Left Leg: No drift; leg holds 30-degree position for full 5 seconds 6b. Right Leg: No drift; leg holds 30-degree position for full 5 seconds 7. Limb Ataxia: Absent 8. Sensory: Normal; no sensory loss 9. Best Language: No aphasia; normal 10. Dysarthria: Normal 11. Extinction and Inattention: No abnormality Total: 0 Physical Exam Narrative General: The patient appears nutritionally appropriate, well-groomed, and appears comfortable in no acute distress. Mental Status:? The patient?s mental status was normal including orientation.? Language was intact.? Cranial nerves:? Visual moore full, and extra-ocular motion was intact. Symmetric face. Motor: Normal strength in all extremities. Sensation: Intact to touch in all extremities.? Coordination:? Bilateral finger to nose was normal.? There was no dysmetria. Gait:? deferred. Lab / Micro Data 02/10/25 18:11 02/10/25 18:11 Labs: Laboratory Results - last 24 hr 02/10/25 18:11: WBC 9.4, RBC 4.92, Hgb 13.5, Hct 41.1, MCV 83.5, MCH 27.4, MCHC 32.8, RDW Std Deviation 42.5, RDW Coeff of Narcisa 13.9, Plt Count 317, MPV 10.6, Immature Gran % (Auto) 0.300, Neut % (Auto) 61.8, Lymph % (Auto) 25.5, [place] % (Auto) 9.2, Eos % (Auto) 2.4, Baso % (Auto) 0.8, Absolute Neuts (auto) 5.8, Absolute Lymphs (auto) 2.41, Nucleated RBC % 0, Sodium 137, Potassium 4.3, Chloride 102, Carbon Dioxide 23.1, Anion Gap 12, BUN 24 H, Creatinine 1.09, Estim Creat Clear Calc 93.49, Est GFR (MDRD) Non-Af 81, BUN/Creatinine Ratio 22.0 H, Glucose 255 H, Calcium 9.1, Troponin T High Sens 25 H, NT pro BNP II 709, TSH 3.160, Free T4 1.20 02/10/25 18:16: POC Glucose 234 H 02/10/25 18:48: Lactic Acid 1.9 02/10/25 20:11: Troponin T Hi Sens 2 Hr 24 H 02/11/25 01:29: Hemoglobin A1c 10.8, Vitamin B12 573, Serum Folate 7.12, TSH 0.973, Ethyl Alcohol < 10.1 02/11/25 02:30: Urine Opiates Screen NEGATIVE, U Buprenorphine Qual NEGATIVE, Ur Oxycodone Screen NEGATIVE, Urine Methadone Screen NEGATIVE, Urine Fentanyl Screen NEGATIVE, Ur Barbiturates Screen NEGATIVE, Ur Phencyclidine Scrn NEGATIVE, Ur Amphetamines Screen NEGATIVE, U Benzodiazepines Scrn NEGATIVE, Urine Cocaine Screen NEGATIVE, U Cannabinoids Screen NEGATIVE 02/11/25 05:39: POC Glucose 435 H 02/11/25 05:44: Triglycerides 76, Cholesterol 215 H, LDL Cholesterol, Calc 160, VLDL Cholesterol 15, HDL Cholesterol 40, Cholesterol/HDL Ratio 5.44 02/11/25 10:57: POC Glucose 339 H Micro: Microbiology 02/11/25 08:45 Urine, Random Legionella Antigen - Final 02/11/25 08:45 Urine, Random Streptococcus pneumoniae Antigen (M - Final ABG Data ABG results: ABG 02/10/25 19:09 Specimen Type TAMIKA Sample Site Not entered VBG pH 7.38 VBG pO2 52 H VBG HCO3 28 H VBG Total CO2 30 VBG O2 Sat (Calc) 85 H VBG Base Excess 3 POC Mix VBG pCO2 Pt Tmp 47.6 O2 Delivery Device Room Air Imaging Radiology Impression Chest X-Ray 02/10/25 18:11 IMPRESSION: Diffuse bilateral pulmonary infiltrates. Differential includes diffuse infection versus inflammatory process within the lungs. Follow-up until complete resolution is recommended. These findings are new since prior examination. Reading Location: [id number] Brain CT 02/10/25 18:31 IMPRESSION: 1.9 by 1.1 x 1.3 cm hypodense area seen within the deep white matter along the right lateral convexity. This is new since prior examination. Differential possibility includes, but not limited to acute/subacute infarct versus intracranial mass. Recommend MRI brain for further evaluation at this time. Red Alert: 1.9 by 1.1 x 1.3 cm hypodense area seen within the deep white matter along the right lateral convexity. This is new since prior examination. Differential possibility includes, but not limited to acute/subacute infarct versus intracranial mass. Recommend MRI brain for further evaluation at this time. The critical information above was relayed directly by me by telephone to Jasbir Curry on 02/10/2025 at 8:00 pm with readback verification. Reading Location: [facility] Head/Neck CTA 02/10/25 18:31 IMPRESSION: 1. 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 Small caliber distal right ARELY. Consider neuro IR consultation and/or neurology consult for discussion of endovascular thrombectomy versus anticoagulation. 2. Approximately 50% stenosis of the left carotid artery by NASCET criteria. Dr. Thompson discussed these findings via telephone with Dr. Curry at 8:50 pm on 02/10/25. Reading Location: [facility] Brain MRI 02/11/25 00:16 IMPRESSION: Acute white matter infarction, with stable size, seen in the area hypodensity noted in the CT of 02/11/2025. Reading Location: [id number] Echocardiogram 02/11/25 00:16 Interpretation Summary Normal LV size. Severe global left ventricular systolic dysfunction. Bubble contrast study negative for right to left interatrial shunt. Mild (1+) eccentric mitral valve insufficiency. Moderate concentric left ventricular hypertrophy. The left ventricular ejection fraction is 25 %. Stage 3 diastolic dysfunction. Compared to previous study, the left ventricular systolic function has worsened.. Ordering Physician: Mitchell Deras Performed By: Jose Bruner RCS Active Medications Active Medications Active Medications: Current Medications Generic Name Dose Route Start Last Admin Trade Name Freq PRN Reason Stop Dose Admin Acetaminophen 650 mg 02/11/25 00:32 Acetaminophen 325 Mg Tablet PO Q6H PRN PRN Pain 1-10 Or Fever>99.6 Albuterol Sulfate 2.5 mg 02/11/25 00:53 02/11/25 01:44 Albuterol 2.5 Mg/3 Ml Vial.Neb. INHALATION 2.5 mg Q4H PRN PRN Administration Shortness Of Breath Amlodipine Besylate 10 mg 02/11/25 10:00 02/11/25 10:35 Amlodipine 10 Mg Tablet PO 10 mg DAILY MEGAN Administration Protocol Aspirin 81 mg 02/11/25 08:00 02/11/25 07:59 Aspirin 81 Mg Tab.Chew PO 81 mg BREAKFAST MEGAN Administration Atorvastatin Calcium 80 mg 02/11/25 22:00 Atorvastatin Calcium 80 Mg Tablet PO QHS MEGAN Carvedilol 25 mg 02/11/25 08:00 02/11/25 07:59 Carvedilol 25 Mg Tablet PO 25 mg BIDCM MEGAN Administration Clonidine 0.1 mg 02/11/25 10:00 02/11/25 10:35 Clonidine Hcl 0.1 Mg Tablet PO 0.1 mg BID MEGAN Administration Protocol Clopidogrel Bisulfate 75 mg 02/11/25 10:00 02/11/25 10:36 Clopidogrel Bisulfate 75 Mg Tablet PO 75 mg DAILY MEGAN Administration Furosemide 60 mg 02/11/25 10:00 02/11/25 10:35 Furosemide 20 Mg Tablet PO 60 mg DAILY MEGAN Administration Protocol Guaifenesin 600 mg 02/11/25 10:00 02/11/25 10:35 Guaifenesin 600 Mg Tablet PO 600 mg BID MEGAN Administration Hydralazine HCl 10 mg 02/11/25 07:21 Hydralazine 20 Mg/Ml Vial IV Q4H PRN PRN SBP GREATER THAN 180 Protocol Potassium Chloride/Sodium Chloride 20 meq in 1,000 mls @ 50 mls/hr 02/11/25 00:32 02/11/25 01:10 IV 02/11/25 20:31 50 mls/hr .Q20H MEGAN Administration Sodium Chloride 100 mls @ 15 mls/hr 02/11/25 00:39 IV .Q6H40M PRN Saline Flush Sodium Chloride 100 mls @ 15 mls/hr 02/11/25 00:39 IV .Q6H40M PRN Additional IVPB Infusion Ceftriaxone Sodium 1 gm in 50 mls @ 100 mls/hr 02/11/25 10:00 02/11/25 10:50 Rocephin IV 100 mls/hr Q24 MEGAN Administration Azithromycin 250 mg/ Sodium 252.5 mls @ 250 mls/hr 02/11/25 10:00 Chloride IV Q24 MEGAN Insulin Glargine 20 unit 02/11/25 22:00 Insulin Glargine-Yfgn 100 Unit/Ml Pen SC QHS MEGAN Insulin Human Lispro 0 unit 02/11/25 07:00 02/11/25 10:59 Insulin Lispro 100 Unit/Ml Insuln.Pen SC 5 u ACHS MEGAN Administration Protocol Isosorbide Mononitrate 60 mg 02/11/25 10:00 02/11/25 10:35 Isosorbide Mononitrate 60 Mg Tablet PO 60 mg BID MEGAN Administration Protocol Lisinopril 20 mg 02/11/25 10:00 02/11/25 10:36 Lisinopril 20 Mg Tablet PO 20 mg BID MEGAN Administration Protocol Loratadine 10 mg 02/11/25 00:32 Loratadine 10 Mg Tablet PO DAILY PRN PRN allergies Nitroglycerin 0.4 mg 02/11/25 00:58 Nitroglycerin (Inpatient Use) 0.4 Mg Tab.Subl SL Q5M PRN CARDIAC/CHEST PAIN Pantoprazole Sodium 40 mg 02/11/25 10:00 02/11/25 10:35 Pantoprazole Sodium 40 Mg Tablet PO 40 mg DAILY MEGAN Administration Potassium Chloride 20 meq 02/11/25 08:00 02/11/25 07:59 Potassium Chloride Oral Tablet 20 Meq PO 20 meq BIDCM MEAGN Administration Prednisone 40 mg 02/11/25 08:00 02/11/25 10:35 Prednisone 20 Mg Tablet PO 02/16/25 08:01 40 mg BREAKFAST MEGAN Administration Ranolazine 1,000 mg 02/11/25 10:00 02/11/25 10:36 Ranolazine 500 Mg Tablet PO 1,000 mg BID MEGAN Administration Sodium Chloride 10 - 40 ml 02/11/25 00:39 02/11/25 03:15 0.9% Saline Lock 10 Ml Syringe IV 10 ml UD PRN Administration SALINE FLUSH
[2025-02-11] MEDS: hydrALAZINE 20 MG/ML Vial 10 MG IV (13:05)
[2025-02-11] MEDS: NORMAL SALINE 0.9% IV (13:09)
[2025-02-11] MEDS: AZITHROMYCIN IV (13:09)
--- NOTE | 2025-02-11 14:21 | DS.PCM_ITS ---
Providers Date of Admission: 02/11/25 Primary Care Physician: Dr. Sivan Bowie MD Consultations 02/11/25 00:32 Consult: Tele-Neurology Routine Consulting Provider: [facility] Reason for Consult: Acute Ischemic Stroke/TIA EMERGENT Consult: No MD Notified: Yes Date Notified: 02/11/25 Time Notified: 00:07 Method of Notification: ED Physician Initiated Method of Consult:: Telemedicine Nursing Unit Staff Notify [facility] of Tele-Neurology Consult: Yes Reason For Visit: LVO OF THE A1 SEGMENT OF THE RIGHT ARELY PLUS RIGHT Diagnosis Discharge Diagnosis (1) CVA (cerebral vascular accident): Status: Acute Code(s): I63.9 - Cerebral infarction, unspecified Plan: CTA shows Large vessel occlusion of the A1 segment of the right anterior cerebral artery, with retrograde filling via the anterior communicating artery. Small caliber distal right ARELY. Neurology recs per ED note (formal note not yet available in [facility]) who advised to give ASA and clopidogrel (clopidogrel not given as pt had already taken it that AM) and to admit to the ICU. Neurology felt the LVO was likely a chronic LVO. Continue ASA, clopidogrel, HIS. No acute indication for transfer per neurology. MRI brain shows an acute infarct. Onset was 02/08 Neurology recommending continuing DAPT, statin. Event monitor. (2) Pneumonia: Status: Acute Code(s): J18.9 - Pneumonia, unspecified organism Plan: Chest x-ray personally viewed and showed bilateral pulmonary infiltrates. Will add ceftriaxone and azithromycin. DC doxycycline. Pulmonary toilet. Strep and legionella antigens negative. Check SCx. DC with levofloxacin (3) Uncontrolled hypertension: Status: Acute Code(s): I10 - Essential (primary) hypertension Plan: Given delayed presentation of CVA, can resume home medications: amlodipine 10, carvedilol 25 BID, clonidine 0.1 BID, furosemide 60 daily, lisinopril 20 BID, isosorbide 60 BID Add PRN hydralazine Continue previous home medications. I had seen the patient on 10/12 for a [employer] for coughing fit then led to a syncopal episode. I had recommended that lisinopril be discontinued at that time, but it appears it has been continued. It is unclear if his cough was lisinopril-induced. So, will continue it for the time being. (4) COPD exacerbation: Status: Chronic Code(s): J44.1 - Chronic obstructive pulmonary disease with (acute) exacerbation Plan: Complicated by pneumonia DC methylpred. Start prednisone for 5 days. BDs Plan DM2: a1c 10.8. Continue glargine and SSI. Obesity class II: complicates care and recovery HLP: continue statin CAD: stable on DAPT, atorvastatin. VTE prophylaxis: SCDs Medications at Discharge Home Medications aspirin 81 mg chewable tablet 81 mg PO DAILY heart health 04/27/22 loratadine 10 mg tablet 10 mg PO DAILY PRN allergies 06/26/22 amlodipine 10 mg tablet 10 mg PO DAILY blood pressure #90 tabs 06/25/23 lisinopril 20 mg tablet 20 mg PO BID blood pressure #180 tabs 11/26/23 atorvastatin 80 mg tablet 80 mg PO QHS cholesterol #90 tabs 12/28/23 insulin degludec 200 unit/mL (3 mL) subcutaneous pen (Tresiba FlexTouch U-200 insulin) 50 unit (0.25 mL) subcut QHS blood sugar 3 months #22.5 mL 12/28/23 ranolazine 1,000 mg tablet,extended release,12 hr 1,000 mg PO BID heart #60 tabs 01/03/24 clopidogrel 75 mg tablet (Plavix) 75 mg PO DAILY anti platelet #90 tabs 01/15/24 isosorbide mononitrate 60 mg tablet,extended release 24 hr 60 mg PO BID heart #180 TABLETS 01/15/24 nitroglycerin 0.4 mg sublingual tablet 0.4 mg sublingual Q5-15M chest pain #25 tabs 07/22/24 albuterol sulfate 90 mcg/actuation aerosol inhaler 2 puff inhalation 4X/DAY PRN Shortness Of Breath #8.5 grams 09/01/24 potassium chloride 20 mEq tablet,extended release(part/cryst) 20 meq PO BIDCM #60 tabs 10/13/24 carvedilol 25 mg tablet 25 mg PO BIDCM [facility] #180 tabs 10/27/24 clonidine HCl 0.1 mg tablet 0.1 mg PO BID blood pressure #180 tabs 12/15/24 furosemide 20 mg tablet (Lasix) 60 mg (3 x 20 mg) PO DAILY #270 tabs 01/15/25 guaifenesin 1,200 mg tablet, extended release 12 hr (Mucus Relief ER) 600 mg PO BID 02/10/25 insulin lispro 100 unit/mL subcutaneous pen (Humalog KwikPen (U-100) Insulin) 20 unit subcut TIDAC PRN DIABETES 02/10/25 levofloxacin 750 mg tablet 750 mg PO DAILY #5 tabs 02/11/25 prednisone 20 mg tablet 40 mg (2 x 20 mg) PO BREAKFAST #8 tabs 02/11/25 Hospital Course Procedures 2-D Echocardiogram Summary of Care Provided Minutes Spent on Discharge: 32 Hospital Course: Patient presents with slurred speech and expressive aphasia that began 2 days prior. Patient had a CAT scan reported as a large vessel occlusion of the A1 segment of the right anterior cerebellar artery. Patient was seen by neurology in the ED and transfer was not recommended but to continue with his current treatments of aspirin, clopidogrel and statin. Acute white matter infarction on the MRI. Neurology reevaluated and recommend continuing current treatment but patient to have a an event monitor. Neurology did not recommend any additional treatments for the A1 LVO. Patient will also follow-up with neurology as outpatient. Concerning on his x-rays also for pneumonia so he was treated with antibiotics while he was here be discharged with levofloxacin. Was concerning for COPD exacerbation still be on short course of prednisone. Weight / BMI Weight Weight: 107.9 kg Body Mass Index (BMI) 36.1 ABG / Lab / Microbiology Data 02/10/25 18:11 02/10/25 18:11 Laboratory: Laboratory Results - last 24 hr 02/10/25 18:11: WBC 9.4, RBC 4.92, Hgb 13.5, Hct 41.1, MCV 83.5, MCH 27.4, MCHC 32.8, RDW Std Deviation 42.5, RDW Coeff of Narcisa 13.9, Plt Count 317, MPV 10.6, Immature Gran % (Auto) 0.300, Neut % (Auto) 61.8, Lymph % (Auto) 25.5, Craig % (Auto) 9.2, Eos % (Auto) 2.4, Baso % (Auto) 0.8, Absolute Neuts (auto) 5.8, Absolute Lymphs (auto) 2.41, Nucleated RBC % 0, Sodium 137, Potassium 4.3, Chloride 102, Carbon Dioxide 23.1, Anion Gap 12, BUN 24 H, Creatinine 1.09, Estim Creat Clear Calc 93.49, Est GFR (MDRD) Non-Af 81, BUN/Creatinine Ratio 22.0 H, Glucose 255 H, Calcium 9.1, Troponin T High Sens 25 H, NT pro BNP II 709, TSH 3.160, Free T4 1.20 02/10/25 18:16: POC Glucose 234 H 02/10/25 18:48: Lactic Acid 1.9 02/10/25 20:11: Troponin T Hi Sens 2 Hr 24 H 02/11/25 01:29: Hemoglobin A1c 10.8, Vitamin B12 573, Serum Folate 7.12, TSH 0.973, Ethyl Alcohol < 10.1 02/11/25 02:30: Urine Opiates Screen NEGATIVE, U Buprenorphine Qual NEGATIVE, Ur Oxycodone Screen NEGATIVE, Urine Methadone Screen NEGATIVE, Urine Fentanyl Screen NEGATIVE, Ur Barbiturates Screen NEGATIVE, Ur Phencyclidine Scrn NEGATIVE, Ur Amphetamines Screen NEGATIVE, U Benzodiazepines Scrn NEGATIVE, Urine Cocaine Screen NEGATIVE, U Cannabinoids Screen NEGATIVE 02/11/25 05:39: POC Glucose 435 H 02/11/25 05:44: Triglycerides 76, Cholesterol 215 H, LDL Cholesterol, Calc 160, VLDL Cholesterol 15, HDL Cholesterol 40, Cholesterol/HDL Ratio 5.44 02/11/25 10:57: POC Glucose 339 H Microbiology: Microbiology 02/11/25 08:45 Urine, Random Legionella Antigen - Final 02/11/25 08:45 Urine, Random Streptococcus pneumoniae Antigen (M - Final ABG: ABG 02/10/25 19:09 Specimen Type TAMIKA Sample Site Not entered VBG pH 7.38 VBG pO2 52 H VBG HCO3 28 H VBG Total CO2 30 VBG O2 Sat (Calc) 85 H VBG Base Excess 3 POC Mix VBG pCO2 Pt Tmp 47.6 O2 Delivery Device Room Air Radiography Diagnostic Testing: Radiology Impression Chest X-Ray 02/10/25 18:11 IMPRESSION: Diffuse bilateral pulmonary infiltrates. Differential includes diffuse infection versus inflammatory process within the lungs. Follow-up until complete resolution is recommended. These findings are new since prior examination. Reading Location: [id number] Brain CT 02/10/25 18:31 IMPRESSION: 1.9 by 1.1 x 1.3 cm hypodense area seen within the deep white matter along the right lateral convexity. This is new since prior examination. Differential possibility includes, but not limited to acute/subacute infarct versus intracranial mass. Recommend MRI brain for further evaluation at this time. Red Alert: 1.9 by 1.1 x 1.3 cm hypodense area seen within the deep white matter along the right lateral convexity. This is new since prior examination. Differential possibility includes, but not limited to acute/subacute infarct versus intracranial mass. Recommend MRI brain for further evaluation at this time. The critical information above was relayed directly by me by telephone to Jasbir Curry on 02/10/2025 at 8:00 pm with readback verification. Reading Location: [facility] Head/Neck CTA 02/10/25 18:31 IMPRESSION: 1. 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 Small caliber distal right ARELY. Consider neuro IR consultation and/or neurology consult for discussion of endovascular thrombectomy versus anticoagulation. 2. Approximately 50% stenosis of the left carotid artery by NASCET criteria. Dr. Thompson discussed these findings via telephone with Dr. Curry at 8:50 pm on 02/10/25. Reading Location: [facility] Brain MRI 02/11/25 00:16 IMPRESSION: Acute white matter infarction, with stable size, seen in the area hypodensity noted in the CT of 02/11/2025. Reading Location: [id number] Echocardiogram 02/11/25 00:16 Interpretation Summary Normal LV size. Severe global left ventricular systolic dysfunction. Bubble contrast study negative for right to left interatrial shunt. Mild (1+) eccentric mitral valve insufficiency. Moderate concentric left ventricular hypertrophy. The left ventricular ejection fraction is 25 %. Stage 3 diastolic dysfunction. Compared to previous study, the left ventricular systolic function has worsened.. Ordering Physician: Mitchell Deras Performed By: Jose Bruner RCS D/C Instructions Discharge Diet: Low fat / Low cholesterol and 2000 Calorie Control Diet DC O2, CPAP, BIPAP Needs Home O2 Discharge instructions: No Meaningful Use Info Meaningful Use Meaningful Use Diagnoses (Choose all that apply): Ischemic CVA CVA Therapy Assessed for PT,OT and/or ST?: Yes Ischemic Stroke Antithrombotic order at d/c?: No Reason antithrombotic not ordered: Treatment not Indicated Dx of Atrial fib/flutter?: No Anticoagulant at discharge?: No Reason anticoagulant not ordered: Treatment not Indicated Statin Dosing Therapy Reference: STATIN DOSE THERAPY REFERENCE: * Patients > 75 years receive moderate or high dose statin therapy. * Patients 75 years or YOUNGER should receive HIGH intensity statin dose unless contraindicated. You will be required to document reason for non-treatment if statin daily dose does not meet guidelines. HIGH DOSE STATIN THERAPY DAILY Atorvastatin > than or = to 40 mg Rosuvastatin > than or = to 20 mg Amlodipine + Atorvastatin > than or = to 2.5/40 mg Ezetimibe + Simvastatin 10/80 mg Simvastatin 80mg Statins at discharge?: Yes If patient is 75 or younger, pt will be discharged on HIGH intensity statin.: Y es Primary Dx Acute Ischemic CVA?: Yes IV thrombolytic ordered during stay?: No Reason IV thrombolytic not ordered: Procedure not Indicated Discharge Plan Admission Admit Date/Time: 02/11/25 00:04 Primary Reason for Your Visit: Stroke Attending Provider: Brennon Juarez Primary Care Provider: Sivan Bowie Consulting Providers: Federico Ramirez; Willie Aguiar; Ayla Todd; Zeynep Daly; Asia Barragan; Eduardo Deal; Aleah Bradshaw; Ricardo Thomas; Rafat Covarrubias; Anil Lema; Farzana Barth; Mal Bishop; Cele Padilla; Roel Jasso; Kala Quiroz; Luis Lucero; Richard Mills; Herberth Granados; Marissa Mars; Grant Schrader; Mitchell Deras Instructions Additional Instructions / Restrictions: You had a stroke which caused her symptoms of slurred speech and difficulty word finding. You will continue with your current medications for that. Neurology has requested an event monitor (a wearable heart monitor) to see if any evidence of any abnormal heart rhythm such as atrial fibrillation that may warrant changes to your treatment. Please follow-up with neurology at your early convenience. [facility] [phone]. [facility] [place] [phone]. [facility] [place] [phone]. [facility] [phone]. [facility] [phone] Additionally looks like you have a pneumonia so you will be on antibiotics for several more days and I have you on some steroids to help with your COPD. The steroids may cause your blood sugars to be temporally elevated why you are taking them. Discharge Orders/Prescriptions Prescriptions: New prednisone 20 mg Tablet 40 mg PO BREAKFAST Qty: 8 0RF levofloxacin 750 mg tablet 750 mg PO DAILY Qty: 5 0RF Continued atorvastatin 80 mg tablet 80 mg PO QHS Qty: 90 1RF insulin degludec [Tresiba FlexTouch U-200] 200 unit/mL (3 mL) insulin pen 50 unit SUBCUT QHS 90 Days Qty: 22.5 1RF clopidogrel [Plavix] 75 mg tablet 75 mg PO DAILY Qty: 90 3RF isosorbide mononitrate 60 mg tablet extended release 24 hr 60 mg PO BID Qty: 180 3RF aspirin 81 MG tablet,chewable 81 mg PO DAILY loratadine 10 mg tablet 10 mg PO DAILY PRN (Reason: allergies) potassium chloride 20 mEq Tablet,Er Particles/Crystals 20 meq PO BIDCM Qty: 60 0RF insulin lispro [Humalog KwikPen Insulin] 100 unit/mL Insulin Pen 20 unit subcut TIDAC PRN (Reason: DIABETES) guaifenesin [Mucus Relief ER] 1,200 mg Tablet Extended Release 12hr 600 mg PO BID amlodipine 10 mg tablet 10 mg PO DAILY Qty: 90 3RF lisinopril 20 mg tablet 20 mg PO BID Qty: 180 3RF ranolazine 1,000 mg tablet extended release 12 hr 1,000 mg PO BID Qty: 60 11RF nitroglycerin 0.4 mg tablet, sublingual 0.4 mg sublingual Q5-15M Qty: 25 3RF albuterol sulfate 90 mcg/actuation HFA aerosol inhaler 2 puff INHALATION 4X/DAY PRN (Reason: Shortness Of Breath) Qty: 8.5 0RF carvedilol 25 mg tablet 25 mg PO BIDCM Qty: 180 3RF clonidine HCl 0.1 mg tablet 0.1 mg PO BID Qty: 180 3RF furosemide [Lasix] 20 mg tablet 60 mg PO DAILY Qty: 270 3RF Other Ambulatory Orders: 30 Day Event Recorder Preventi (Urgent) Timeframe: 1 Day Facility: [facility] - Location: Cardiovascular Services Ordered By: Dr. Brennon Juarez Referrals / Follow Up: Sivan Bowie MD [Primary Care Provider] - Within 2 Weeks Disposition Disposition (needs filled in before D/C Order can be placed): Home, Self Care Charges/Coding Visit Charges Inpatient E&M: 42470 Disch Hosp >30min
--- NOTE | 2025-02-11 14:24 | NURSING ---
Patient aware of plan to be discharged this afternoon. Patient quickly took off BP cuff, telemetry leads, and pulse ox.
--- NOTE | 2025-02-11 14:49 | CASEMGMT ---
Pt has an order for DC placed. TC to [facility] pharmacy who states that the pt new Rxs will total to 15$. RN CM to pt room at this time. Pt is agreeable. Pt requests a refill for his albuterol inhaler. Dr. Juarez notified and states he will send a refill order to [facility]. TC back to [facility] who states the refill will cost around 30$.Pt is agreeable to this. Pt will also be getting a manager cardiac cath and reports that he has been given education regarding this. Pt denies further questions or concerns at this time and is ready for DC. Pt RN updated.
--- NOTE | 2025-02-11 15:37 | CASEMGMT ---
Social Work- Pt has been seen by Heidi who reports that pt applied for [facility], although it is likely he may not qualify. Pt completed HCAP and qualifies for assistance through [facility]. RNCM assisted with pharmacy needs. Pt discharged prior to SW providing [place] printable, but pt is established with Dr Bowie as PCP. SHI Chacko
[2025-02-13 16:09] LABS: Vitamin D 1,25-Dihydroxy 8.9 pg/mL (24.8-81.5)
== END 2025-02-11 15:10 | disposition home or self-care (01) | DRG 64 ==
LOC: ED 23:30 → ICU 02-11 00:22
PROVIDERS: Admitting Provider Internal Medicine; Emergency Provider Emergency Medicine; PCP Internal Medicine
DX: I63.9 Cerebral infarction, unspecified (principal); J18.9 Pneumonia, unspecified organism; J44.0 Chronic obstructive pulmonary disease with (acute) lower respiratory infection; J44.1 Chronic obstructive pulmonary disease with (acute) exacerbation; I11.0 Hypertensive heart disease with heart failure; E11.65 Type 2 diabetes mellitus with hyperglycemia; I66.11 Occlusion and stenosis of right anterior cerebral artery; Z68.30 Body mass index [BMI] 30.0-30.9, adult; I50.9 Heart failure, unspecified; I25.10 Atherosclerotic heart disease of native coronary artery without angina pectoris; E78.5 Hyperlipidemia, unspecified; F17.210 Nicotine dependence, cigarettes, uncomplicated; J30.2 Other seasonal allergic rhinitis; I25.5 Ischemic cardiomyopathy; J20.9 Acute bronchitis, unspecified; I65.22 Occlusion and stenosis of left carotid artery; Z79.4 Long term (current) use of insulin; Z82.5 Family history of asthma and other chronic lower respiratory diseases; Z82.49 Family history of ischemic heart disease and other diseases of the circulatory system; Z79.02 Long term (current) use of antithrombotics/antiplatelets; Z86.718 Personal history of other venous thrombosis and embolism; Z82.3 Family history of stroke; Z95.5 Presence of coronary angioplasty implant and graft; Z79.52 Long term (current) use of systemic steroids; R90.82 White matter disease, unspecified; E66.812 Obesity, class 2; Z68.36 Body mass index [BMI] 36.0-36.9, adult
CPT/HCPCS: 70450; 70496; 70498; 70553; 71046; 80048; 80061; 80307; 82077; 82607; 82652; 82746; 82803; 82962; 83036; 83605; 83880; 84439; 84443; 84484; 85025; 87449; 92523; 92610; 93005; 93306; 93880; 94640; 97162; 97802; 99285; A9575; Q9957; Q9967; A4216; C8929

== ENCOUNTER 2025-07-05 20:30 | Observation (INO) | payer SELFPAY ==
[2021-06-01 14:28] VITALS: BMI 35.6
[2025-07-05 20:31] VITALS: BP 237/126; PULSE 114; RESP 22; TEMP 36.6; O2SAT 98; BMI 35.4
--- NOTE | 2025-07-05 20:44 | EKG12_ITS ---
Test Reason : CP Blood Pressure : */* mmHG Vent. Rate : 104 BPM Atrial Rate : 104 BPM P-R Int : 200 ms QRS Dur : 112 ms QT Int : 350 ms P-R-T Axes : 78 -28 71 degrees QTcB Int : 460 ms Sinus tachycardia Possible Left atrial enlargement Septal infarct , age undetermined Abnormal ECG Confirmed by BIRGIT EVANGELISTA, GENE ([id number]), video news editor EVELIO CURRY ([id number]) on 07/07/2025 6:12:39 AM Referred By: DR RIVERA Confirmed By: GENE GENAO MD
--- OUTSIDE RECORDS SUMMARY | 2025-07-05 20:55 | XMS RPT_ITS | CCD ---
Author Organization [facility] CliniSyne Care Team Providers Care Community Service Patrol Officer Name Role Phone MD Flores Cyril S Unavailable Jesika PRINCIPAL ACCOUNT CLERK, Hesham Sharma Unavailable Valeriano Weir Unavailable Unavailable MD Flores Cyril S Unavailable Valeriano Weir Unavailable Unavailable VETO Liang, Crista Duran Unavailable Unavailabl e Dr. Beka Bowie Primary Care Provider [phone] Dr. Beka Bowie Referring Provider [phone] Shimon PRINCIPAL ACCOUNT CLERK, PRINCIPAL ACCOUNT CLERK-C Mare Attending Provider Shimon VICTOR, PRINCIPAL ACCOUNT CLERK-C Mare Referring Provider Shimon VICTOR, PRINCIPAL ACCOUNT CLERK-C Mare Other Provider [phone] Dr. Eric Flores Attending Provider [phone] Beka Bowie Attending Provider [phone] Dr. Fran Yang Attending Provider Dr. González Bunn Emergency Provider [phone] Brennon Juarez Admit Provider Dr. Brennon Juarez Other Provider Dr. Bernabe Roberts Attending Provider Dr. Bernabe Roberts Other Provider Dr. Brennon Juarez Attending Provider Dr. Beka Bowie Primary Care Provider [phone] Dr. Beka Bowie Referring Provider [phone] Dr. rFan Yang Attending Provider Maria Teresa [place], [place] Flores Duran Attending Provider Dr. Beka Bowie Attending Provider [phone] Morgan Bhardwaj Emergency Provider Giovanni, Dr. Johnson Admit Provider Dr. Elizabeth Davila Attending Provider Dr. Elizabeth Davila Other Provider Dr. Kay Mars Other Provider Dr. Eric Flores Attending Provider Dr. Beka Bowie Primary Care Provider [phone] Dr. Beka Bowie Referring Provider [phone] Kecia [place] Mal Attending Provider [phone] Dr. Eric Flores Attending Provider Dr. Eric Flores Referring Provider Dr. Eric Flores Other Provider Roof PRINCIPAL ACCOUNT CLERK, PRINCIPAL ACCOUNT CLERK-Yung Sharma Attending Provider MD Pollo Bond Emergency Provider Dr. Mary Lewis Admit Provider Dr. Mary Lewis Attending Provider Dr. Mary Lewis Other Provider Dr. Harvey Murphy Attending Provider Dr. Harvey Murphy Other Provider Dr. Maldonado Whitt Other Provider Dr. Luis Villeda Attending Provider Dr. Maldonado Whitt Attending Provider Dr. Beka Bowie Attending Provider [phone] Dr. Beka Bowie Primary Care Provider [phone] Dr. Beka Bowie Referring Provider [phone] [place], [place] Mal Attending Provider Dr. Eric Flores Attending Provider Dr. Eric Flores Referring Provider [phone] Eric Flores Other Provider Jesika PRINCIPAL ACCOUNT CLERK, PRINCIPAL ACCOUNT CLERK-Yung Sharma Attending Provider MD Pollo Bond Emergency Provider Dr. Mary Lewis Admit Provider Dr. Mary Lewis Attending Provider Dr. Mary Lewis Other Provider Dr. Harvey Murphy Attending Provider Dr. Harvey Murphy Other Provider Dr. Maldonado Whitt Other Provider Dr. Luis Villeda Attending Provider Dr. Maldonado Whitt Attending Provider Dr. Beka Bowie Attending Provider [phone] Maria Teresa [place], [place] Flores Duran Attending Provider Beka Bowie Primary Care Provider [phone] Beka Bowie MD Primary Care Provider Dr. Jasbir Curry DO Emergency Provider Dr. Mitchell Deras DO Admit Provider Unavail able Dr. Mitchell Deras DO Attending Provider Federico Huber MD Other Provider Unavailable Dr. Willie Aguiar MD Other Provider Ayla Todd MD Other Provider Unavailable Dr. Zeynep Daly DO Other Provider [phone] Laurel EVANGELISTA, Dr. Betancourt Other Provider Say EVANGELISTA, Dr. Clark Other Provider Augustine EVANGELISTA, Dr. Bullard Other Provider William EVANGELISTA, Dr. Silva Other Provider [phone] Satish EVANGELISTA, Dr. Douglass Other Provider [phone] Torey EVANGELISTA, Dr. Ma Other Provider Lary EVANGELISTA, Farzana Other Provider [phone] Edna EVANGELISTA, Dr. Resendez Other Provider [phone] Randy EVANGELISTA, Dr. Oakley Other Provider Romero EVANGELISTA, Dr. Sevilla Other Provider Richie EVANGELISTA, Dr. Kala Barnes Other Provider [phone] Nic EVANGELISTA, Dr. Smith Other Provider [phone] Gene EVANGELISTA, Dr. Ramos Other Provider Darwin EVANGELISTA, Dr. Kevin Other Provider Jerad EVANGELISTA, Dr. Ann Other Provider Unavailable Raciel EVANGELISTA, Grant Other Provider Unavailable Dr. Mitchell Deras DO Other Provider Unavail able Dr. Brennon Juarez DO Attending Provider [phone] Brennon Juarez DO Other Provider [phone] Sandra EVANGELISTA, Dr. Reyes Attending Provider [phone] Oleghe, Efewongbe Primary Care Unavailable Brennon Mckeon Attending Unavailable Oleghe, Efewongbe Primary Care Unavailable Brennon Juarez Referring Unavailable Brennon Juarez Attending Unavailable Federico Ramirez Consulting Unavailable Mitchell Deras Admitting Unavailable Oleghe, Efewongbe Primary Care Unavailable Brennon Juarez Attending Unavailable Adeli, Amir Consulting Unavailable Hinduja, Ayla Consulting Unavailable Addy, Zeynep Consulting Unavailable Zha, Asia Consulting Unavailable Say, Eduardo Consulting Unavailable Augustine, Aleah Consulting Unavailable Bittar, Ricardo Consulting Unavailable Rosario Covarrubias Consulting Unavailable Anil Lema Consulting Unavailable Farzana Barth Consulting Unavailable Mal Bishop Consulting Unavailable Cele Padilla Consulting Unavailable Roel Jasso Consulting Unavailable Kala Quiroz Consulting UnavailLuis Hickey Consulting Unavailable Richard Mills Consulting Unavailable Herberth Granados Consulting Unavailable Marissa Mars Consulting Unavailable Grant Schrader Consulting Unavailable Mitchell Deras Consulting Unavailable Mitchell Deras Admitting Unavailable Mitchell Deras Consulting Unavailable Oleghe, Efewongbe Primary Care Unavailable Manuelito Green Attending Unavailable Benji, Nasim Consulting Unavailable Oleghe, Efewongbe Primary Care Unavailable Harvey Murphy Referring Unavailable Harvey Murphy Attending Unavailable Oleghe, Efewongbe Referring Unavailable Oleghe, Efewongbe Primary Care Unavailable Flores Tipton Attending Unavail able Mitchell Deras Admitting Unavailable Mitchell Deras Consulting Unavailable Benji Nasim Attending Unavailable Olee, Efewongbe Primary Care Unavailable Benji, Nasim Consulting Unavailable Manuelito Green Attending Unavailable Manuelito Green Consulting Unavailable Federico Ramirez Consulting Unavailable Mitchell Deras Admitting Unavailable Mitchell Deras Attending Unavailable Olee, Efewongbe Primary Care Unavailable Willie Aguiar Consulting Unavailable Ayla Todd Consulting Unavailable Zeynep Daly Consulting Unavailable Gregory Barragancia Consulting Unavailable Eduardo Deal Consulting Unavailable Aleah Bradshaw Consulting Unavailable Ricardo Thomas Consulting Unavailable Rosario Covarrubias Consulting Unavailable Anil Lema Consulting Unavailable Farzana Barth Consulting Unavailable Mal Bishop Consulting Unavailable Cele Padilla Consulting Unavailable Roel Jasso Consulting Unavailable Kala Quiroz Consulting UnavailLuis Hickey Consulting Unavailable Mills Rami Consulting Unavailable Herberth Granados Consulting Unavailable Marissa Masr Consulting Unavailable Grant Schrader Consulting Unavailable Mitchell Deras Consulting Unavailable Brennon Juarez Attending Unavailable Brennon Juarez Consulting Unavailable Mitchell Deras Attending Unavailable Amro, Ahmed Consulting Unavailable Ronal Luis Consulting Unavailable Haile Black Consulting Unavailable Eric Flores Consulting Unavailable Bernabe Roberts Consulting Unavailable Harvey Murphy Consulting Unavailable Sylwia Seth Consulting UnavailHeladio He Consulting Unavailable Otoniel Simpson Consulting Unavailable Jesika VICTOR, Hesham Sharma Consulting Unavailable Flores Tipton Consulting Unavail able Eric Flores Attending Unavailable Oleghe, Efewongbe Primary Care Unavailable Mitchell Deras Referring Unavailable [facility] [place] Unavailable Brennon Coronado Attending Unavailable Eric Flores Attending Unavailable [facility] Primary [facility] [place] Unavailable Brennon Juarez Referring Unavailable Allergies Allergy Classification Reported Allergen(s) Allergy Type Date of Onset Reaction(s) Facility (20 sources) amoxicillin; Translations: [AMOXICILLIN] drug allergy 5 Vomiting [facility] Work Phone: (9 sources) amoxicillin / clavulanate drug allergy 7 severe rash [facility] Work Phone: (20 sources) codeine; Translations: [CODEINE] drug allergy 5 GI Upset [facility] Work Phone: (14 sources) Amoxicillin; Translations: [amoxicillin trihydrate] Drug Allergy 2 [facility] (14 sources) potassium clavulanate; Translations: [potassium clavulanate] Allergy to substance 2 [facility] (5 sources) Ticagrelor Drug Allergy 4 Shortness of Breath [facility] (1 source) Ticagrelor Drug Allergy [address] [facility] Repository Medications Current Medications Medication Drug Class(es) Dates Sig (Normalized) Sig (Original) [id number] 200 actuat albuterol 0.09 mg/actuat metered dose inhaler (20 sources) beta2-Adrenergic Agonist Start: 09-25-2024 End: 02-10-2025 Albuterol Sulfate (Ventolin Hfa) 90 mcg/actuation HFA aerosol inhaler Discontinued 2 NMA INHALATION EVERY 4 HOURS NEEDED as needed for Wheezing September 25, 2024 1:00am February 10, 2025 7:09pm Start: 12-12-2023 End: 12-24-2023 take 90 ug by inhalation every four to six hours as needed Albuterol Sulfate (Proair Respiclick) 90 mcg/actuation aerosol powdr breath activated Discontinued 0 INHALATION NEEDED as needed for Bronchodilation December 12, 2023 8:56am December 24, 2023 4:24pm 1-2 inhalations Q4-6 hours as needed; Start: 04-27-2022 take 1 puff(s) by in halation four times daily Albuterol Sulfate Active 2 PUFF INHALATION 4 TIMES DAILY April 27, 2022 9:46am Start: 04-27-2022 End: 02-11-2025 Albuterol Sulfate 90 mcg/act uation HFA aerosol inhaler Active 2 NMA INHALATION 4 TIMES DAILY as needed for Shortness Of Breath 8.February 11, 2025 2:55pm Start: 04-27-2022 End: 01-31-2024 take 1 puff(s) by inhalation four times daily Albuterol Sulfate Active 2 PUFF INHALATION 4 TIMES DAILY 8.January 31, 2024 6:59pm Start: 11-18-2021 End: 12-12-2023 Albuterol Sulfate (Proair Respiclick) 90 mcg/actuation aerosol powdr breath activated Discontinued 2 NMA INHALATION NEEDED as needed for Bronchodilation November 18, 2021 1:00am December 12, 2023 8:59am Start: 06-15-2017 take 2 puff(s) by in halation every four hours as needed for wheezing albuterol HFA (VENTOLIN HFA) 90 mcg/actuation inhaler Indications: Viral bronchitis Inhale 2 Puffs as instructed every 4 hours as needed for Wheezing/Shortness of Breath. 1 Inhaler 0 10/29/2018 Active aspirin 81 mg chewable tablet (20 sources) Platelet Aggregation Inhibitor, Nonsteroidal Anti-inflammatory Drug Start: 12-22-2016 take 1 tablet by mouth once daily ASPIRIN EC 81 MG TBEC One tablet by mouth daily ASPIRIN [id number] Suly Yoder RN Start: 12-12-2016 End: 04-27-2022 take 1 tablet by mouth once daily Aspirin 81 MG tablet,chewable Active 81 mg PO DAILY April 27, 2022 9:58am brompheniramine maleate 0.4 mg/ml / dextromethorphan hydrobromide 2 mg/ml / pseudoephedrine hydrochloride 6 mg/ml oral solution (1 source) alpha-Adrenergic Agonist, Uncompetitive H-gykvto-N-aspartate Receptor Antagonist, Sigma-1 Agonist Start: 10-29-2018 take 5 mL by mouth four times daily as needed Vveqgiuejwlyzua-Klwluxrwt-UJ (BROMFED DM) 2-30-10 mg/5 mL syrup Indications: Viral bronchitis Take 5 mL by mouth four times daily as needed. 118 mL 0 10/29/2018 Active budesonide 0.25 mg/ml inhalation suspension (1 source) Corticosteroid Start: 04-28-2021 take 0.5 mg by inhalat ion twice daily Budesonide Active 0.5 MG INHALATION TWICE A DAY April 28, 2021 2:53pm BUDESONIDE/FORMOT CHASE FUMARATE (SYMBICORT INHALATION) (1 source) BUDESONIDE/FORMO TEROL FUMARATE (SYMBICORT INHALATION) Inhale as instructed. 0 Active Fluticasone-Umecl idin-Vilanter (1 source) Start: 06-16-2021 Hkeyosdqzak-Wxxanexht-Exmyvc e r Active 1 INH INHALATION DAILY June 16, 2021 4:03pm furosemide 20 mg oral tablet (4 sources) Loop Diuretic Start: 10-13-2024 End: 01-15-2025 take 3 tablets by mouth once daily Furosemide (Lasix) 20 mg tablet Active 60 mg PO DAILY January 15, 2025 9:47am 12 hr guaiFENesin 1200 mg extended release oral tablet (4 sources) Start: 02-10-2025 Guaifenesin (Mucus Relief Er ) 1,200 mg Tablet Extended Release 12hr Active 600 mg PO TWICE A DAY February 10, 2025 12:00am Start: 10-13-2024 End: 02-10-2025 take 1 tablet by mouth twice daily, then take 1 tablet by mouth every twelve hours Guaifenesin (Mucus Relief Er) 1,200 mg Tablet Extended Release 12hr Discontinued 1200 mg PO TWICE A DAY October 13, 2024 1:00am February 10, 2025 7:22pm hydroCHLOROthiazide 12.5 mg / valsartan 320 mg oral tablet (1 source) Thiazide Diuretic, Angiotensin 2 Receptor Christi take 1 tablet by mouth once daily Valsartan-Hydrochlorothiazide (DIOVAN HCT) 320-12.5 mg per tablet Take 1 tablet by mouth once daily. 0 Active Insulin Degludec (Insulin Degludec 200 Unit/Ml (3 Ml) Subcutaneous Pen) 200 unit/mL (3 mL) insulin pen (3 sources) Sta rt: 4 inject 3 mL by subcutaneous injection at bedtime Insulin Degludec (Insulin Degludec 200 Unit/Ml (3 Ml) Subcutaneous Pen) 200 unit/mL (3 mL) insulin pen Active 50 UNIT SC AT BEDTIME November 21, 2023 12:00am Insulin Degludec (Tresiba Flextouch U-200) 200 unit/mL (3 mL) insulin pen (9 sources) Sta rt: Insulin Degludec (Tresiba Flextouch U-200) 200 unit/mL (3 mL) insulin pen Active 50 U SC AT BEDTIME 22.5 90 December 28, 2023 12:57pm Start: 12-28-2023 Insulin Deglud ec (Tresiba Flextouch U-200) 200 unit/mL (3 mL) insulin pen Active 50 UNIT SC AT BEDTIME 22.5 90 December 28, 2023 12:57pm Start: 12-28-2023 Insulin Deglud ec (Tresiba Flextouch U-200) 200 unit/mL (3 mL) insulin pen Active 50 UNIT SC AT BEDTIME 22.5 90 December 28, 2023 11:57am Start: 11-21-2023 End: 12-28-2023 Insulin Degludec (Tresiba Fl extouch U-200) 200 unit/mL (3 mL) insulin pen Discontinued 50 U SC AT BEDTIME November 21, 2023 1:00am December 28, 2023 12:58pm Start: 11-21-2023 End: 12-28-2023 Insulin Degludec (Tresiba Fl extouch U-200) 200 unit/mL (3 mL) insulin pen Discontinued 50 UNIT SC AT BEDTIME November 21, 2023 1:00am December 28, 2023 12:58pm Start: 11-21-2023 End: 12-28-2023 Insulin Degludec (Tresiba Fl extouch U-200) 200 unit/mL (3 mL) insulin pen Discontinued 50 UNIT SC AT BEDTIME November 21, 2023 12:00am December 28, 2023 11:58am Start: 11-21-2023 Insulin Deglud ec (Tresiba Flextouch U-200) 200 unit/mL (3 mL) insulin pen Active 50 UNIT SC AT BEDTIME November 21, 2023 12:00am 3 ml insulin lispro 100 unt/ml pen injector (20 sources) Insulin Analog Start: 10-13-2024 End: 02-10-2025 Insulin Lispro (Humalog Kwikpen Insulin) 100 unit/mL Insulin Pen Active 20 U SC THREE TIMES DAILY BEFORE MEALS as needed for DIABETES February 10, 2025 12:00am Start: 04-12-2023 End: 10-13-2024 inject 14 [IU] by subcutaneous injection three times daily at mealtime Insulin Lispro (Humalog Kwikpen Insulin) 200 unit/mL (3 mL) insulin pen Discontinued 14 U SC 3 TIMES DAILY WITH MEALS December 24, 2023 1:00am October 13, 2024 2:09pm inject 14 units subcutaneously three times a day (SEE PROTOCOL) Start: 06-01-2021 End: 04-12-2023 Insulin Lispro (Humalog Kwik pen Insulin) 200 unit/mL (3 mL) insulin pen Discontinued 14 U SC THREE TIMES A DAY April 27, 2022 9:58am April 12, 2023 11:53am Please contact the information source for Protocol details. Start: 05-01-2021 End: 06-01-2021 Insulin Lispro (Humalog Kwik pen Insulin) 200 unit/mL (3 mL) insulin pen Discontinued 0 U SC THREE TIMES A DAY May 26, 2021 8:19am June 01, 2021 2:00pm Please contact the information source for Protocol details. Insulin Yantis (Disposable) (1 source) Start: 05-25-2021 Insulin Needle s (Disposable) Active 0 .ROUTE .MEDSUPPLY 1 May 25, 2021 5:28pm As directed 24 hr isosorbide mononitrate 60 mg extended release oral tablet (20 sources) Nitrate Vasodilator Start: 01-15-2024 take 1 tablet by mouth twice daily, then take 1 tablet by mouth every twenty-four hours Isosorbide Mononitrate 60 mg tablet extended release 24 hr Active 60 mg PO TWICE A DAY 180 January 15, 2024 10:29am Start: 12-24-2023 End: 01-15-2024 take 1 tablet by mouth once daily, then take 1 tablet by mouth every twenty-four hours Isosorbide Mononitrate 60 mg tablet extended release 24 hr Discontinued 60 mg PO DAILY December 24, 2023 1:00am January 15, 2024 10:30am Start: 04-02-2023 End: 12-24-2023 take 1 tablet by mouth twice daily Isosorbide Mononitrate 60 mg tablet extended release 24 hr Discontinued 0 .ROUTE .COMPLEX 60 April 02, 2023 8:48am December 24, 2023 4:25pm TAKE 1 TABLET BY MOUTH TWICE A DAY FOR HEART. Start: 06-05-2022 End: 04-02-2023 take 1 tablet by mouth every twenty-four hours Isosorbide Mononitrate 60 mg tablet extended release 24 hr Discontinued 60 NMA PO DAILY June 05, 2022 12:00am April 02, 2023 8:48am Start: 06-05-2022 End: 04-02-2023 take 1 tablet by mouth once daily Isosorbide Mononitra te Discontinued 60 TAB PO DAILY June 05, 2022 12:00am April 02, 2023 8:48am Start: 01-13-2022 take 60 mg by mouth twice araseli y Isosorbide Mononitrate Active 60 MG PO TWICE A DAY 60 January 13, 2022 4:56pm Start: 02-06-2020 End: 01-13-2022 take 1 tablet by mouth once daily, then take 1 tablet by mouth every twenty-four hours Isosorbide Mononitrate 60 mg tablet extended release 24 hr Discontinued 60 mg PO DAILY April 28, 2021 4:33pm January 13, 2022 4:57pm Start: 02-20-2019 End: 02-06-2020 take 1 tablet by mouth once daily, then take 1 tablet by mouth every twenty-four hours Isosorbide Mononitrate 30 mg tablet extended release 24 hr Discontinued 30 mg PO DAILY October 14, 2019 5:06pm February 06, 2020 10:34am levoFLOXacin 750 mg oral tablet (20 sources) Quinolone Antimicrobial Start: 02-11-2025 take 1 tablet by mouth once daily Levofloxacin 750 mg tablet Active 750 mg PO DAILY February 11, 2025 12:00am Start: 01-31-2024 End: 10-13-2024 take 1 tablet by mouth once daily Levofloxacin 750 mg tablet Discontinued 750 mg PO DAILY January 31, 2024 12:00am October 13, 2024 2:10pm Start: 05-01-2021 End: 05-07-2021 take 1 tablet by mouth once daily Levofloxacin 750 mg tablet Discontinued 750 mg PO DAILY May 01, 2021 12:00am May 07, 2021 8:15am Start: 04-28-2021 End: 05-01-2021 take 1 tablet by mouth once daily Levofloxacin 500 mg tablet Discontinued 500 mg PO DAILY April 28, 2021 12:00am May 01, 2021 9:03am polymyxin b [id number] unt/ml / trimethoprim 1 mg/ml ophthalmic solution (1 source) Dihydrofolate Reductase Inhibitor Antibacterial, Polymyxin-class Antibacterial Start: 03-17-2024 take 1 drop(s) into the eye(s) four times daily trimethoprim-polymyxin (POLYTRIM) 10,000 unit- 1 mg/mL ophthalmic solution Indications: Bacterial conjunctivitis Use 1 Drop in the left eye four times daily. 10 mL 0 03/17/2024 Active Start: 03-17-2024 take 1 drop(s) into the eye(s) four times daily trimethoprim-polymyxin (POLYTRIM) 10,000 unit- 1 mg/mL ophthalmic solution Indications: Bacterial conjunctivitis Use 1 Drop in the left eye four times daily. 10 mL 0 03/17/2024 Active microencapsulated potassium chloride 20 meq extended release oral tablet (2 sources) Start: 10-13-2024 take 1 tablet by mouth twice daily at mealtime Potassium Chloride 20 mEq Tablet,Er Particles/Crystals Active 20 meq PO TWICE DAILY WITH MEALS 60 October 13, 2024 1:00am predniSONE 20 mg oral tablet (20 sources) Start: 02-11-2025 take 2 tablets by mouth at breakfast Prednisone 20 mg Tablet Active 40 mg PO WITH BREAKFAST 8 February 11, 2025 12:00am Start: 10-13-2024 End: 02-10-2025 Prednisone 20 mg tablet Disc ontinued 20 mg PO TWICE A DAY October 13, 2024 1:00am February 10, 2025 7:14pm 1 twice a day for 3 days, then 1 daily for 3 days, then one half daily for 4 days then stop Start: 06-08-2022 End: 06-08-2022 take 2 tablets by mouth once daily Prednisone 20 mg tablet Discontinued 40 mg PO DAILY June 08, 2022 12:00am June 08, 2022 4:36pm Start: 06-08-2022 End: 06-08-2022 take 40 mg by mouth once daily Prednisone Discontinued 40 MG PO DAILY June 08, 2022 12:00am June 08, 2022 4:36pm Start: 05-07-2021 End: 06-01-2021 take 1 tablet by mouth once daily Prednisone 5 mg Tablet Discontinued 5 mg PO DAILY May 07, 2021 12:00am June 01, 2021 1:59pm last dose is today Start: 04-28-2021 End: 05-01-2021 take 3 tablets by mouth twice daily Prednisone 10 mg tablet Discontinued 30 mg PO TWICE A DAY April 28, 2021 12:00am May 01, 2021 9:04am Start: 04-28-2021 End: 05-01-2021 take 30 mg by mouth twice daily Prednisone Discontinue d 30 MG PO TWICE A DAY April 28, 2021 12:00am May 01, 2021 9:04am Start: 11-22-2018 End: 02-20-2019 Prednisone 10 mg tablet Disc ontinued 10 mg PO DAILY November 25, 2018 9:35am February 20, 2019 3:55pm 40mg for 3 days, 30mg for 3 days, 20mg for 3 days, 10mg for 3 days, 5mg for 3 days Start: 11-22-2018 End: 02-20-2019 Prednisone Discontinued 10 M G PO DAILY November 25, 2018 9:35am February 20, 2019 3:55pm 40mg for 3 days, 30mg for 3 days, 20mg for 3 days, 10mg for 3 days, 5mg for 3 days spironolactone 25 mg oral tablet (1 source) Aldosterone Antagonist Start: 04-28-2021 take 25 mg by mouth once daily Spironolactone Active 25 MG PO DAILY April 28, 2021 2:53pm Completed/Discontinued Medications Medication Drug Class(es) Dates Sig (Normalized) Sig (Original) acetaminophen 325 mg / HYDROcodone bitartrate 5 mg oral tablet (13 sources) Opioid Agonist Start: 11-19-2020 End: 11-21-2020 Hydrocodone-Acetami nophen 1 TABLET tablet Discontinued 1 {tbl} PO EVERY 4 HOURS NEEDED as needed for Pain 10 2 November 19, 2020 November 20, 2020 1:00am November 21, 2020 1:02am Start: 11-19-2020 End: 11-21-2020 take 1 tablet by mouth every four hours as needed Hydrocodone-Acetaminophen Discontinued 1 TABLET PO EVERY 4 HOURS NEEDED 08 20November 19, 2020 November 21, 2020 1:02am acetaminophen 325 mg / oxyCODONE hydrochloride 5 mg oral tablet (13 sources) Opioid Agonist Start: 12-31-2020 End: 01-05-2021 Oxycodone-Acetaminophen 1 TABLET tablet Discontinued 1 {tbl} PO EVERY 6 HOURS NEEDED as needed for Left flank pain 07 04December 31, 2020 January 04, 2021 1:00am January 05, 2021 1:03am Start: 12-31-2020 End: 01-05-2021 take 1 tablet by mouth every six hours as needed Oxycodone-Acetaminophen Discontinued 1 TABLET PO EVERY 6 HOURS NEEDED 07 04December 31, 2020 January 05, 2021 1:03am amLODIPine 10 mg oral tablet (20 sources) Dihydropyridine Calcium Channel Christi Start: 10-14-2019 End: 06-25-2023 take 1 tablet by mouth once daily Amlodipine 10 mg tablet Discontinued 0 .ROUTE .COMPLEX June 05, 2022 8:44am June 26, 2022 1:43am take 1 tablet by mouth once daily Start: 02-20-2019 End: 10-14-2019 take 2 tablets by mouth once daily Amlodipine 5 mg tablet Discontinued 10 mg PO DAILY October 14, 2019 5:06pm October 14, 2019 5:16pm Start: 02-20-2019 End: 10-14-2019 take 10 mg by mouth once daily Amlodipine Discontinued 10 MG PO DAILY October 14, 2019 5:06pm October 14, 2019 5:16pm Start: 11-22-2018 End: 02-20-2019 take 1 tablet by mouth once daily Amlodipine 5 mg tablet Discontinued 5 mg PO DAILY November 22, 2018 1:00am February 20, 2019 3:55pm Start: 07-03-2017 End: 11-22-2018 take 1 tablet by mouth once daily Amlodipine 10 MG tablet Discontinued 10 mg PO DAILY July 03, 2017 12:00am November 22, 2018 4:44pm Start: 12-22-2016 End: 02-06-2017 take 1 tablet by mouth once daily AMLODIPINE BESYLATE 10 MG TABS One tablet by mouth daily AMLODIPINE BESYLATE [id number] Hesham Sharma Jesika PRINCIPAL ACCOUNT CLERK apixaban 5 mg oral tablet (2 sources) Factor Xa Inhibitor Start: 09-25-2024 End: 02-10-2025 take 2 tablets by mouth twice daily, then take 1 tablet by mouth twice daily Apixaban (Eliquis) 5 mg tablet Discontinued 5 mg PO TWICE A DAY September 25, 2024 1:00am February 10, 2025 7:10pm 10 mg twice a day for the first week. Then 5 mg twice a day. atorvastatin 80 mg oral tablet (20 sources) HMG-CoA Reductase Inhibitor Start: 11-18-2021 End: 12-28-2023 take 1 tablet by mouth at bedtime Atorvastatin 80 mg tablet Discontinued 80 mg PO AT BEDTIME April 27, 2022 9:58am December 28, 2023 12:51pm Start: 02-22-2019 End: 11-18-2021 take 1 tablet by mouth at bedtime Atorvastatin 40 mg tablet Discontinued 40 mg PO AT BEDTIME October 20, 2020 10:52am January 07, 2021 4:45pm Start: 12-12-2016 End: 02-20-2019 take 1 tablet by mouth at bedtime Atorvastatin 80 MG tablet Discontinued 80 mg PO AT BEDTIME January 24, 2018 4:28pm November 22, 2018 5:08pm azithromycin 250 mg oral tablet (8 sources) Macrolide Antimicrobial Start: 11-23-2022 End: 11-21-2023 Azithromycin 250 mg tablet Discontinued 250 mg PO daily November 23, 2022 1:00am November 21, 2023 7:42am 2 tablets today, then 1 tablet daily on days 2 through 11 benzonatate 200 mg oral capsule (2 sources) Non-narcotic Antitussive Start: 10-13-2024 End: 02-10-2025 take 1 capsule by mouth three times daily as needed for cough Benzonatate 200 mg capsule Discontinued 200 mg PO THREE TIMES A DAY as needed for cough October 13, 2024 1:00am February 10, 2025 7:10pm BUDESONIDE-FORMOTE ROL FUMARATE (9 sources) Corticosteroid, beta2-Adrenergic Agonist Start: 12-22-2016 take 2 puff(s) by inhalation twice daily SYMBICORT 80-4.5 MCG/ACT AERO inhale 2 puffs twice daily BUDESONIDE-FORMOT CHASE FUMARATE [id number] Suly Yoder RN Start: 12-22-2016 SYMBICORT 80-4 .5 MCG/ACT AERO inhale 2 puffs twice daily BUDESONIDE-FORMOTEROL FUMARATE [id number] Suly Yoder RN carvedilol 25 mg oral tablet (20 sources) alpha-Adrenergic Christi, beta-Adrenergic Christi Start: 06-26-2022 End: 10-27-2024 take 1 tablet by mouth twice daily at mealtime Carvedilol 25 mg tablet Discontinued 25 mg PO TWICE DAILY WITH MEALS 180 April 24, 2023 12:31pm October 27, 2024 12:01pm Start: 06-05-2022 End: 06-26-2022 take 1 tablet by mouth twice daily at mealtime Carvedilol (Coreg) 12.5 mg tablet Discontinued 12.5 mg PO TWICE A DAY 180 June 05, 2022 12:00am June 26, 2022 1:21pm must administer with a meal/food chlorthalidone 25 mg oral tablet (20 sources) Thiazide-like Diuretic Start: 04-28-2021 End: 11-21-2023 take 1 tablet by mouth once daily Chlorthalidone 25 mg tablet Discontinued 25 mg PO DAILY April 28, 2021 12:00am November 21, 2023 7:42am Start: 12-09-2016 End: 12-12-2016 take 1 tablet by mouth once daily Chlorthalidone 25 MG tablet Discontinued 25 mg PO DAILY December 09, 2016 1:00am December 12, 2016 10:14am cloNIDine hydrochloride 0.1 mg oral tablet (20 sources) Central alpha-2 Adrenergic Agonist Start: 06-26-2022 End: 12-15-2024 take 1 tablet by mouth twice daily Clonidine Hcl 0.1 mg tablet Discontinued 0.1 mg PO TWICE A DAY 180 April 24, 2023 12:31pm December 15, 2024 11:16am Start: 04-28-2021 End: 06-26-2022 take 1 tablet by mouth twice daily Clonidine Hcl 0.2 mg tablet Discontinued 0.2 mg PO TWICE A DAY April 28, 2021 3:02pm June 26, 2022 1:20pm Start: 01-21-2021 End: 04-28-2021 take 1 tablet by mouth three times daily Clonidine Hcl 0.2 mg tablet Discontinued 0.2 mg PO THREE TIMES A DAY 180 January 21, 2021 12:47pm April 28, 2021 3:04pm Start: 03-19-2020 End: 01-21-2021 take 1 tablet by mouth twice daily Clonidine Hcl 0.2 mg tablet Discontinued 0.2 mg PO TWICE A DAY 180 January 07, 2021 4:44pm January 21, 2021 12:50pm Start: 03-18-2020 End: 03-19-2020 take 2 tablets by mouth twice daily Clonidine Hcl 0.1 mg tablet Discontinued 0.2 mg PO TWICE A DAY 60 March 18, 2020 4:16pm March 19, 2020 9:47am Start: 03-18-2020 End: 03-19-2020 take 0.2 mg by mouth twice daily Clonidine Hcl Discontinued 0.2 MG PO TWICE A DAY 60 March 18, 2020 4:16pm March 19, 2020 9:47am Start: 02-22-2019 End: 03-18-2020 take 1 tablet by mouth twice daily Clonidine Hcl 0.1 mg tablet Discontinued 0.1 mg PO TWICE A DAY 60 April 15, 2019 9:14am March 18, 2020 4:16pm Start: 12-09-2016 End: 12-12-2016 take 1 tablet by mouth once daily Clonidine Hcl 0.2 MG tablet Discontinued 0.2 mg PO DAILY December 09, 2016 1:00am December 12, 2016 10:14am clopidogrel 75 mg oral tablet (20 sources) [id number] Platelet Inhibitor Start: 02-17-2022 End: 01-15-2024 take 1 tablet by mouth once daily Clopidogrel 75 mg tablet Discontinued 0 .ROUTE .COMPLEX May 28, 2023 9:15am December 24, 2023 4:25pm take 1 tablet by mouth once daily Start: 12-12-2016 End: 11-18-2021 take 1 tablet by mouth once daily Clopidogrel 75 mg tablet Discontinued 75 mg PO DAILY October 20, 2020 10:52am January 07, 2021 4:45pm doxycycline monohydrate 100 mg oral capsule (2 sources) Tetracycline-class Drug Start: 10-13-2024 End: 02-10-2025 take 1 capsule by mouth twice daily Doxycycline Monohydrate 100 mg Capsule Discontinued 100 mg PO TWICE A DAY October 13, 2024 1:00am February 10, 2025 7:11pm Fluticasone-Umecl idin-Vilanter (13 sources) Anticholinergic, Corticosteroid, beta2-Adrenergic Agonist Start: 04-28-2021 End: 11-23-2021 Fluticasone-Umecl idin-Vilanter (Trelegy Ellipta) 100-62.5-25 mcg Blister With Device Discontinued 1 INH INHALATION DAILY April 28, 2021 3:05pm November 23, 2021 5:10pm Start: 04-28-2021 End: 11-23-2021 Csopbrgqtxt-Yjsbqletm-Uytvcv er (Trelegy Ellipta) 100-62.5-25 mcg Blister With Device Discontinued 1 NMA INHALATION DAILY April 28, 2021 12:00am November 23, 2021 5:10pm Start: 04-28-2021 End: 11-23-2021 Cvqlgxdsbwn-Hgcmceefn-Mqtxjy er (Trelegy Ellipta) 100-62.5-25 mcg Blister With Device Discontinued 1 INH INHALATION DAILY April 27, 2021 11:00pm November 23, 2021 4:10pm Start: 04-28-2021 End: 11-23-2021 Fluukihswpx-Hmnumqbsc-Mjtkgk er (Trelegy Ellipta) 100-62.5-25 mcg Blister With Device Discontinued 1 INH INHALATION DAILY April 28, 2021 12:00am November 23, 2021 5:10pm hydroCHLOROthiazide 25 mg oral tablet (20 sources) Thiazide Diuretic Start: 04-27-2017 End: 01-07-2021 take 1 tablet by mouth once daily Hydrochlorothiazide 25 mg tablet Discontinued 25 mg PO DAILY October 20, 2020 10:52am January 07, 2021 4:45pm 3 ml insulin degludec 200 unt/ml pen injector (20 sources) Insulin Analog Start: 10-06-2021 End: 05-27-2023 Insulin Degludec (Tresiba Flextouch U-200) 200 unit/mL (3 mL) insulin pen Discontinued 50 U SC AT BEDTIME 7.5 30 April 27, 2023 12:46pm May 26, 2023 12:00am May 27, 2023 12:04am 3 ml insulin glargine 100 unt/ml pen injector (20 sources) Insulin Analog Start: 06-01-2021 End: 10-10-2021 Insulin Glargine (Lantus Solostar U-100 Insulin) 100 unit/mL (3 mL) insulin pen Discontinued 34 U SC AT BEDTIME June 01, 2021 1:57pm October 10, 2021 8:24am Start: 05-06-2021 End: 06-01-2021 Insulin Glargine (Lantus Ame ostar U-100 Insulin) 100 unit/mL (3 mL) insulin pen Discontinued 30 U SC AT BEDTIME May 26, 2021 8:18am June 01, 2021 2:00pm Start: 05-01-2021 End: 05-06-2021 Insulin Glargine (Lantus Ame ostar U-100 Insulin) 100 unit/mL (3 mL) insulin pen Discontinued 15 U SC TWICE A DAY May 01, 2021 12:00am May 06, 2021 7:18pm levothyroxine sodium 0.05 mg oral tablet (10 sources) l-Thyroxine Start: 12-22-2016 take 1 tablet by mouth once daily LEVOTHYROXINE SODIUM 50 MCG TABS One tablet by mouth daily LEVOTHYROXINE SODIUM [id number] Suly Yoder RN Lidocaine (13 sources) Antiarrhythmic, Amide Local Anesthetic Start: 05-01-2021 End: 06-01-2021 take 1 mL by mouth four times daily as needed for pain Lidocaine Hcl (Lidocaine Viscous) 2 % Solution Discontinued 15 mL PO 4 TIMES DAILY NEEDED as needed for Mouth sores, pain May 01, 2021 9:03am June 01, 2021 1:59pm Start: 05-01-2021 End: 06-01-2021 take 1 mL by mouth four times daily as needed Lidocaine Hcl (Lidocaine Viscous) 2 % Solution Discontinued 15 ML PO 4 TIMES DAILY NEEDED May 01, 2021 8:03am June 01, 2021 12:59pm Start: 05-01-2021 End: 06-01-2021 take 1 mL by mouth four times daily as needed Lidocaine Hcl (Lidocaine Viscous) 2 % Solution Discontinued 15 ML PO 4 TIMES DAILY NEEDED May 01, 2021 9:03am June 01, 2021 1:59pm lisinopril 20 mg oral tablet (20 sources) Angiotensin Converting Enzyme Inhibitor Start: 04-28-2021 End: 05-25-2021 take 1 tablet by mouth twice daily Lisinopril 30 mg tablet Discontinued 30 mg PO TWICE A DAY April 28, 2021 12:00am May 25, 2021 5:47pm Start: 02-22-2019 End: 11-26-2023 take 1 tablet by mouth twice daily Lisinopril 20 mg tablet Discontinued 20 mg PO TWICE A DAY 180 March 23, 2022 8:51am April 27, 2022 10:00am loratadine 10 mg oral tablet (20 sources) Start: 02-08-2021 End: 06-26-2022 take 1 tablet by mouth once daily Loratadine 10 mg tablet Discontinued 10 mg PO DAILY July 04, 2021 8:37am June 26, 2022 1:49am metFORMIN hydrochloride 500 mg oral tablet (20 sources) Biguanide Start: 05-01-2021 End: 02-15-2022 take 1 tablet by mouth twice daily Metformin 500 mg tablet Discontinued 500 mg PO TWICE A DAY May 01, 2021 12:00am February 15, 2022 4:16pm On Hold: Hold for 2 days Start: 02-20-2019 End: 03-19-2020 take 1 tablet by mouth twice daily Metformin 500 mg tablet Discontinued 500 mg PO TWICE A DAY 0 February 22, 2019 10:25am March 19, 2020 9:45am restart on 02/24/2019 metoprolol tartrate 50 mg oral tablet (20 sources) beta-Adrenergic Christi Start: 01-13-2022 End: 06-05-2022 Metoprolol Tartrate 50 mg tablet Discontinued 50 mg PO TWICE A DAY April 27, 2022 9:58am June 05, 2022 4:37pm Hold for heart less than 60 or systolic blood pressure less than 100 mmHg. Rhetoric titrate his dose to keep heart rate 60 to 70/min Start: 11-18-2021 End: 01-13-2022 Metoprolol Tartrate 25 mg Ta blet Discontinued 25 mg PO TWICE A DAY 60 November 18, 2021 1:00am January 13, 2022 4:57pm Hold for heart less than 60 or systolic blood pressure less than 100 mmHg. Rhetoric titrate his dose to keep heart rate 60 to 70/min Start: 02-22-2019 End: 11-18-2021 take 1 tablet by mouth twice daily Metoprolol Tartrate 100 mg tablet Discontinued 100 mg PO TWICE A DAY 180 October 20, 2020 10:06am January 07, 2021 4:45pm Start: 02-20-2019 End: 02-22-2019 take 2 tablets by mouth twice daily Metoprolol Tartrate 50 mg tablet Discontinued 100 mg PO TWICE A DAY February 20, 2019 3:54pm February 22, 2019 10:25am Start: 02-20-2019 End: 02-22-2019 take 100 mg by mouth twice daily Metoprolol Tartrate Discontinued 100 MG PO TWICE A DAY February 20, 2019 3:54pm February 22, 2019 10:25am Start: 07-03-2017 End: 11-13-2018 take 2 tablets by mouth twice daily Metoprolol Tartrate 25 MG tablet Discontinued 50 mg PO TWICE A DAY July 03, 2017 7:56am November 13, 2018 12:43pm Start: 07-03-2017 End: 11-13-2018 take 50 mg by mouth twice daily Metoprolol Tartrate Di scontinued 50 MG PO TWICE A DAY July 03, 2017 7:56am November 13, 2018 12:43pm Start: 12-22-2016 End: 02-20-2019 take 1 tablet by mouth twice daily Metoprolol Tartrate 50 mg tablet Discontinued 50 mg PO TWICE A DAY 60 November 13, 2018 12:42pm November 22, 2018 5:08pm Start: 12-12-2016 End: 07-03-2017 take 1 tablet by mouth twice daily Metoprolol Tartrate 25 MG tablet Discontinued 25 mg PO TWICE A DAY 90 December 12, 2016 1:00am July 03, 2017 7:56am 24 hr nicotine 0.583 mg/hr transdermal system (2 sources) Cholinergic Nicotinic Agonist Start: 10-13-2024 End: 02-10-2025 apply 1 dose transdermal route every twenty-four hours Nicotine 14 mg/24 hr Patch 24 Hour Discontinued 14 mg TD DAILY October 13, 2024 1:00am February 10, 2025 7:13pm nitroglycerin 0.4 mg sublingual tablet (20 sources) Nitrate Vasodilator Start: 08-20-2023 End: 12-24-2023 Nitroglycerin 0.4 mg tablet, sublingual Discontinued 0 .ROUTE .COMPLEX December 14, 2023 8:58am December 24, 2023 4:25pm PLACE 1 TABLET UNDER TONGUE FOR CHEST PAIN. CALL 911 IF NO IMPROVEMENT AFTER 5 MIN. REPEAT DOSE TWICE IF NEEDED Start: 12-21-2021 End: 07-22-2024 Nitroglycerin 0.4 mg tablet, sublingual Discontinued 0.4 mg SL Q5M December 24, 2023 1:00am July 22, 2024 1:07pm PLACE 1 TABLET UNDER TONGUE FOR CHEST PAIN. CALL 911 IF NO IMPROVEMENT AFTER 5 MIN. REPEAT DOSE TWICE IF NEEDED nortriptyline 25 mg oral capsule (13 sources) Tricyclic Antidepressant Start: 06-01-2021 End: 08-17-2021 take 1 capsule by mouth at bedtime Nortriptyline 25 mg capsule Discontinued 25 mg PO AT BEDTIME June 01, 2021 12:00am August 17, 2021 4:39pm nystatin [id number] unt/ml oral suspension (13 sources) Polyene Antifungal Start: 05-01-2021 End: 06-01-2021 take [id number] [IU] by mouth four times daily Nystatin 100,000 unit/mL Suspension Discontinued [id number] U PO 4 TIMES DAILY 140 7 May 01, 2021 12:00am June 01, 2021 1:59pm 12 hr ranolazine 1000 mg extended release oral tablet (20 sources) Anti-anginal Start: 12-14-2023 End: 01-03-2024 take 1 tablet by mouth twice daily Ranolazine 1,000 mg tablet extended release 12 hr Discontinued 1000 mg PO TWICE A DAY December 18, 2023 11:03am January 03, 2024 4:33pm Start: 07-10-2022 End: 12-14-2023 take 1 tablet by mouth twice daily Ranolazine (Ranexa) 500 mg tablet extended release 12 hr Discontinued 500 mg PO TWICE A DAY July 10, 2022 12:00am December 14, 2023 4:53pm rosuvastatin calcium 40 mg oral tablet (13 sources) HMG-CoA Reductase Inhibitor Start: 02-20-2019 End: 02-22-2019 take 1 tablet by mouth once daily Rosuvastatin 40 mg tablet Discontinued 40 mg PO DAILY February 20, 2019 12:00am February 22, 2019 10:22am SUMAtriptan 50 mg oral tablet (13 sources) Serotonin-1b and Serotonin-1d Receptor Agonist Start: 06-01-2021 End: 08-17-2021 take 1 tablet by mouth every two hours Sumatriptan Succinate (Imitrex) 50 mg tablet Discontinued 0 PO .COMPLEX June 01, 2021 12:00am August 17, 2021 4:40pm take 1 tab at onset of headache; if no relief may repeat 1 tab after at least 2 hrs; max = 4 tabs/24 hr PO tadalafil 20 mg oral tablet (9 sources) Phosphodiesterase 5 Inhibitor Start: 12-22-2016 take 1 tablet by mouth once daily as needed CIALIS 20 MG TABS One tablet by mouth daily as needed TADALAFIL [id number] Suly Yoder RN ticagrelor 90 mg oral tablet (13 sources) Start: 11-18-2021 End: 02-17-2022 take 1 tablet by mouth twice daily Ticagrelor (Brilinta) 90 mg Tablet Discontinued 90 mg PO TWICE A DAY November 18, 2021 1:00am February 17, 2022 4:44pm valsartan 320 mg oral tablet (20 sources) Angiotensin 2 Receptor Christi Start: 12-27-2016 End: 02-22-2019 take 1 tablet by mouth once daily Valsartan 320 mg tablet Discontinued 320 mg PO daily January 24, 2018 1:00am November 22, 2018 5:08pm Problems Active Problems Problem Classification Problem Date Documented Date Episodic/Chronic Acute and unspecified renal failure (13 sources) Injury of kidney; Translations: [Acute kidney failure, unspecified] 04-28-2021 Episodic Acute bronchitis (8 sources) Acute bacterial bronchitis; Translations: [Acute bronchitis due to other specified organisms] Onset: 4 02-11-2025 Episodic Acute cerebrovascular disease (7 sources) Cerebrovascular accident; Translations: [Cerebral infarction, unspecified] Onset: 5 02-10-2025 Chronic Acute myocardial infarction (20 sources) Non-ST elevation (NSTEMI) myocardial infarction; Translations: [Acute subendocardial infarction] Onset: 7 04-27-2017 Chronic Bacterial infection; unspecified site (14 sources) Bacteremia; Translations: [Bacteremia] Onset: 5 05-06-2021 Episodic Chronic obstructive pulmonary disease and bronchiectasis (20 sources) Chronic obstructive lung disease; Translations: [Chronic obstructive pulmonary disease, unspecified] Onset: 7 12-22-2016 Chronic Chronic obstructive pulmonary disease and bronchiectasis (13 sources) Bronchitis; Translations: [Bronchitis, not specified as acute or chronic] 07-18-2014 Episodic Conditions associated with dizziness or vertigo (13 sources) Dizziness; Translations: [Dizziness and giddiness] 01-22-2021 Episodic Congestive heart failure; nonhypertensive (4 sources) Congestive heart failure; Translations: [Heart failure, unspecified] Onset: 4 10-21-2024 Chronic Coronary atherosclerosis and other heart disease (20 sources) Atherosclerotic heart disease of [place] coronary artery without angina pectoris; Translations: [Coronary atherosclerosis] Onset: 7 04-27-2017 Chronic Coronary atherosclerosis and other heart disease (7 sources) Presence of coronary angioplasty implant and graft; Translations: [Percutaneous transluminal coronary angioplasty status] Onset: Episodic Diabetes mellitus with complications (13 sources) Hyperosmolar hyperglycemic coma due to diabetes mellitus without ketoacidosis; Translations: [Type 2 diabetes mellitus with hyperosmolarity with coma] 04-28-2021 Chronic Diabetes mellitus without complication (20 sources) Diabetes mellitus; Translations: [Insulin dependent diabetes mellitus] Chronic Disorders of lipid metabolism (14 sources) Hyperlipidemia; Translations: [Hyperlipidemia, unspecified] Onset: 7 12-22-2016 Chronic Essential hypertension (20 sources) Hypertensive disorder; Translations: [Essential hypertension] Onset: 7 12-22-2016 Chronic Headache; including migraine (20 sources) Cluster headache; Translations: [Cluster headache syndrome, unspecified, not intractable] 06-01-2021 Chronic Headache; including migraine (13 sources) Headache; Translations: [Headache] 08-17-2021 Episodic Hypertension with complications and secondary hypertension (20 sources) Hypertensive urgency ; Translations: [Hypertensive urgency] Chronic Inflammation; infection of eye (except that caused by tuberculosis or sexually transmitteddisease) (1 source) Bacterial conjunctivitis; Translations: [Unspecified conjunctivitis] 03-17-2024 Episodic Mycoses (13 sources) Candidiasis of mouth; Translations: [Candidal stomatitis] 04-28-2021 Episodic Nonspecific chest pain (20 sources) Chest pain; Translations: [Chest pain, unspecified] Onset: 5 Episodic Nutritional deficiencies (4 sources) Vitamin D deficiency; Translations: [Vitamin D deficiency, unspecified] 01-15-2024 Chronic Other circulatory disease (8 sources) H/O: heart disorder; Translations: [Personal history of other diseases of the circulatory system] 11-21-2023 Episodic Other diseases of kidney and ureters (5 sources) Hydronephrosis; Translations: [Hydronephrosis with renal and ureteral calculous obstruction] Episodic Other diseases of kidney and ureters (8 sources) Hydronephrosis with renal and ureteral calculous obstruction; Translations: [Hydronephrosis with urinary obstruction due to ureteral calculus] 01-01-2021 Episodic Other hematologic conditions (15 sources) Raised cardiac enzyme or marker; Translations: [Other specified abnormalities of plasma proteins] 01-07-2021 Episodic Other lower respiratory disease (2 sources) Respiratory insufficiency; Translations: [Other abnormalities of breathing] 10-21-2024 Episodic Other lower respiratory disease (2 sources) Hypoxia; Translations: [Hypoxemia] 10-10-2024 Episodic Other non-traumatic joint disorders (3 sources) Shoulder pain; Translations: [Pain in left shoulder] Episodic Other non-traumatic joint disorders (11 sources) Pain in left shoulder; Translations: [Pain in joint, shoulder region] Episodic Other nutritional; endocrine; and metabolic disorders (2 sources) Body mass index (BMI) 31.0-31.9, adult; Translations: [Body mass index (BMI) 31.0-31.9, adult] Onset: 7 07-17-2017 Chronic Other nutritional; endocrine; and metabolic disorders (13 sources) Obese class I; Translations: [Obesity, unspecified] 01-21-2021 Chronic Other nutritional; endocrine; and metabolic disorders (13 sources) Obesity; Translations: [Obesity, unspecified] 05-13-2021 Chronic Other nutritional; endocrine; and metabolic disorders (7 sources) Obesity, unspecified; Translations: [Obesity, unspecified] Onset: 4 Chronic Other nutritional; endocrine; and metabolic disorders (4 sources) Body mass index 30+ - obesity; Translations: [Obesity, unspecified] 02-11-2025 Chronic Other screening for suspected conditions (not mental disorders or infectious disease) (17 sources) Electrocardiogram abnormal; Translations: [Abnormal electrocardiogram [ECG] [EKG]] Onset: 4 11-26-2023 Episodic Other skin disorders (13 sources) Eruption; Translations: [Rash and other nonspecific skin eruption] 02-21-2019 Episodic Other upper respiratory infections (8 sources) Acute sinusitis; Translations: [Acute sinusitis, unspecified] 11-23-2022 Episodic Pneumonia (except that caused by tuberculosis or sexually transmitted disease) (16 sources) Community acquired pneumonia; Translations: [Pneumonia, unspecified organism] Onset: 5 10-07-2021 Episodic Residual codes; unclassified (8 sources) Left against medical advice; Translations: [Procedure and treatment not carried out because of patient's decision for other reasons] 11-21-2023 Episodic Residual codes; unclassified (2 sources) Peripheral edema; Translations: [Localized edema] 10-10-2024 Episodic Septicemia (except in labor) (13 sources) Sepsis; Translations: [Sepsis, unspecified organism] 05-16-2021 Episodic Comment on above: Ruled out Substance-related disorders (9 sources) Tobacco dependence syndrome; Translations: [Nicotine dependence, unspecified, uncomplicated] Onset: 7 12-22-2016 Chronic Substance-related disorders (20 sources) Nicotine dependence; Translations: [Nicotine dependence, unspecified, uncomplicated] Chronic Thyroid disorders (10 sources) Hypothyroidism; Translations: [Acquired hypothyroidism] Onset: 7 12-22-2016 Chronic Unclassified (12 sources) Placement of stent in coronary artery ; Translations: [Presence of coronary angioplasty implant and graft] Onset: 7 04-27-2017 Past or Other Problems Problem Classification Problem Date Documented Da te Episodic/Chronic Other hematologic conditions (1 source) Other specified abnormalities of plasma proteins; Translations: [Other specified abnormalities of plasma proteins] Onset: 10-13-2024 Episodic Other lower respiratory disease (9 sources) Dyspnea; Translations: [Shortness of breath] Onset: 02-06-2017 02-06-2017 Episodic Other lower respiratory disease (1 source) Other abnormalities of breathing; Translations: [Other abnormalities of breathing] Onset: 10-13-2024 Episodic Other lower respiratory disease (1 source) Shortness of breath; Translations: [Shortness of breath] Onset: 12-08-2024 Episodic Phlebitis; thrombophlebitis and thromboembolism (5 sources) H/O: Deep vein thrombosis; Translations: [Personal history of other venous thrombosis and embolism] Onset: 10-13-2024 10-21-2024 Episodic Residual codes; unclassified (15 sources) Edema of lower extremity; Translations: [Generalized edema] Onset: 02-06-2017 02-06-2017 Episodic Residual codes; unclassified (3 sources) Generalized edema; Translations: [Anasarca] Onset: 02-06-2017 02-06-2017 Episodic Unclassified (13 sources) Borderline elevated troponin 02-24-2019 Results Test Name Value Interpretation Reference Range Facility Vitamin D 1,25-Dihydroxyon 0 02-13-2025 VIT D 1,25 DIHY 8.9 pg/mL Abnormal 24.8-81.[address] [facility] Comment on above: Result Comment: Perf ormed at: [facility] - [facility] [address] [id number] Corporate Wellness Coordinator: Saundra Anderson MD, Phone: [phone] Performed By: #### L [id number], L506.0400, L501.9520, L100.0100, L503.7505, L500.2500 #### [facility] [address] [place], [place], [id number] Basic Metabolic Profile (BMP )on 02-12-2025 BUN Normal - [facility] Comment on above: Result Comment: Canc elled via OM: Order cancelled - Patient discharged Performed By: #### L [id number], L506.0400, L501.9520, L100.0100, L503.7505, L500.2500 #### [facility] [address] [place], [place], [id number] [phone] BUN/CRE Normal - [facility] Comment on above: Result Comment: Canc elled via OM: Order cancelled - Patient discharged Performed By: #### L [id number], L506.0400, L501.9520, L100.0100, L503.7505, L500.2500 #### [facility] [address] [place], [address] Calcium Normal 7.6-11.[address] [facility] Comment on above: Result Comment: Canc elled via OM: Order cancelled - Patient discharged Performed By: #### L [id number], L506.0400, [id number], L100.0100, L503.7505, L500.2500 #### [facility] [address] [place], [address] CL Normal 98-[address] [facility] Comment on above: Result Comment: Canc elled via OM: Order cancelled - Patient discharged Performed By: #### L [id number], L506.0400, [id number], L100.0100, L503.7505, L500.2500 #### [facility] [address] [place], [address] CO2 Normal 21.0-32.[address] [facility] Comment on above: Result Comment: Canc elled via OM: Order cancelled - Patient discharged Performed By: #### L [id number], L506.0400, [id number], L100.0100, L503.7505, L500.2500 #### [facility] [address] [place], [address] CREAT,SERUM Normal 0.70-1.[address] [facility] Comment on above: Result Comment: Canc elled via OM: Order cancelled - Patient discharged Performed By: #### L 501.4021, L506.0400, L501.9520, L100.0100, L503.7505, L500.2500 #### [facility] [address] [place], [address] eGFR Normal >[address] [facility] Comment on above: Result Comment: Canc elled via OM: Order cancelled - Patient discharged Performed By: #### L 501.4021, L506.0400, L501.9520, L100.0100, L503.7505, L500.2500 #### [facility] [address] [place], [address] GAP Normal 5-[address] [facility] Comment on above: Result Comment: Canc elled via OM: Order cancelled - Patient discharged Performed By: #### L 501.4021, L506.0400, L501.9520, L100.0100, L503.7505, L500.2500 #### [facility] [address] [place], [address] GLU Normal 70-[address] [facility] Comment on above: Result Comment: Canc elled via OM: Order cancelled - Patient discharged Performed By: #### L 501.4021, L506.0400, L501.9520, L100.0100, L503.7505, L500.2500 #### [facility] [address] [place], [address] Potassium Normal 3.3-5.[address] [facility] Comment on above: Result Comment: Canc elled via OM: Order cancelled - Patient discharged Performed By: #### L 501.4021, L506.0400, L501.9520, L100.0100, L503.7505, L500.2500 #### [facility] [address] [place], [address] Basic Metabolic Profile (BMP) Normal 133-[address] [facility] Comment on above: Result Comment: Canc elled via OM: Order cancelled - Patient discharged Performed By: #### L 501.4021, L506.0400, L501.9520, L100.0100, L503.7505, L500.2500 #### [facility] [address] [place], [address] CBC W/Diff, Automatedon 03-2 Absolute Neut Normal 2.0-7.[address] [facility] Comment on above: Result Comment: Canc elled via OM: Order cancelled - Patient discharged Performed By: #### L 501.4021, L506.0400, L501.9520, L100.0100, L503.7505, L500.2500 #### [facility] [address] [place], [address] HCT Normal 40-[address] [facility] Comment on above: Result Comment: Canc elled via OM: Order cancelled - Patient discharged Performed By: #### L 501.4021, L506.0400, L501.9520, L100.0100, L503.7505, L500.2500 #### [facility] [address] [place], [address] HGB Normal 13.0-16.[address] [facility] Comment on above: Result Comment: Canc elled via OM: Order cancelled - Patient discharged Performed By: #### L 501.4021, L506.0400, L501.9520, L100.0100, L503.7505, L500.2500 #### [facility] [address] [place], [address] MCH Normal 27.0-32.[address] [facility] Comment on above: Result Comment: Canc elled via OM: Order cancelled - Patient discharged Performed By: #### L 501.4021, L506.0400, L501.9520, L100.0100, L503.7505, L500.2500 #### [facility] [address] [place], [address] MCHC Normal 32-[address] [facility] Comment on above: Result Comment: Canc elled via OM: Order cancelled - Patient discharged Performed By: #### L 501.4021, L506.0400, L501.9520, L100.0100, L503.7505, L500.2500 #### [facility] [address] [place], [address] MCV Normal 80-[address] [facility] Comment on above: Result Comment: Canc elled via OM: Order cancelled - Patient discharged Performed By: #### L 501.4021, L506.0400, L501.9520, L100.0100, L503.7505, L500.2500 #### [facility] [address] [place], [address] NEUT% Normal 47-[address] [facility] Comment on above: Result Comment: Canc elled via OM: Order cancelled - Patient discharged Performed By: #### L 501.4021, L506.0400, L501.9520, L100.0100, L503.7505, L500.2500 #### [facility] [address] [place], [address] PLT Normal 150-[address] [facility] Comment on above: Result Comment: Canc elled via OM: Order cancelled - Patient discharged Performed By: #### L 501.4021, L506.0400, L501.9520, L100.0100, L503.7505, L500.2500 #### [facility] [address] [place], [address] RBC Normal 4.6-6.[address] [facility] Comment on above: Result Comment: Canc elled via OM: Order cancelled - Patient discharged Performed By: #### L 501.4021, L506.0400, L501.9520, L100.0100, L503.7505, L500.2500 #### [facility] [address] [place], [address] RDW CV Normal 11.6-14.[address] [facility] Comment on above: Result Comment: Canc elled via OM: Order cancelled - Patient discharged Performed By: #### L 501.4021, L506.0400, L501.9520, L100.0100, L503.7505, L500.2500 #### [facility] [address] [place], [address] RDW SD Normal 35.1-43.[address] [facility] Comment on above: Result Comment: Canc elled via OM: Order cancelled - Patient discharged Performed By: #### L 501.4021, L506.0400, L501.9520, L100.0100, L503.7505, L500.2500 #### [facility] [address] [place], [address] WBC Normal 4.4-11.[address] [facility] Comment on above: Result Comment: Canc elled via OM: Order cancelled - Patient discharged Performed By: #### L 501.4021, L506.0400, L501.9520, L100.0100, L503.7505, L500.2500 #### [facility] [address] [place], [address] Alcohol, Blood (Medical)-Ser umon 02-11-2025 SERUM ETOH < 10.1 Normal <=10.[address] [facility] Comment on above: Result Comment: This test is for medical purposes only. The legal definition of intoxication varies according to local law. Performed By: #### L 501.4020 #### [facility] [address] [facility] [place], [address] Amphetamines Screen method > 1000 ng/mL Ql (U)Ordered By: Mitchell Lucero on 02-11-2025 Amphetamines Ql (U) Negative <1000 ng/mL [facility] Urine Barbiturates Screen Negative < 200 ng/mL [facility] Bedside Glucoseon 02-11-2025 FINGERSTICK GLU 339 mg/dL High 74-[address] [facility] Comment on above: Result Comment: CARLOS GEMENT OF PATIENT CARE PER NURSING PROTOCOL Performed By: #### L 501.4021, L506.0400, L501.9520, L100.0100, L503.7505, L500.2500 #### [facility] [address] [place], [address] FINGERSTICK GLU 435 mg/dL High 74-[address] [facility] Comment on above: Result Comment: CARLOS MAYFIELDLEILA OF PATIENT CARE PER NURSING PROTOCOL Performed By: #### L 501.4021, L506.0400, L501.9520, L100.0100, L503.7505, L500.2500 #### [facility] [address] [place], [address] Brain W/WO Contraston 2024 Brain W/WO Contrast [facility] Imaging Services [address] [place] [place] [address] Brain W/WO Contrast MR#: [id number] Acct: [id number] Name: LATONYA ELDER Rep #: [id number] : 1970 M 54 From: Mitchell Torrez PCP: Dr. Beka Bowie MD Status: DIS IN Study: Brain W/WO Contrast Date of Exam: 02/11/25 Exam# [id number] Ordering Dr: Mitchell Deras DO ADDENDUM by Dr. Mitchell King MD on 03/02/25 at 1035 Dose: 20 mL Clariscan intravenous. Reading Location: [id number] 03/02/25 1035 Date cc: Dr. Mitchell Deras DO; Dr. Beka Bowie MD * Signed EXAM: MRI of the brain without and with contrast CLINICAL HISTORY: Large vessel occlusion. Acute CVA (versus mass) on CT. COMPARISON: Head CT of 02/10/2025. TECHNIQUE: MRI of the brain without and with contrast. FINDINGS: The previously noted hypodensity on the CT of 02/10/2025, does appear to be an acute area of white matter infarction, given the diffusion restriction present the current examination. It is measured at approximately 8 x 12 x 10 mm. No adjacent edema or mass effect is seen. No midline shift is noted. No additional focus of diffusion restriction is seen. Ventricles appear symmetric and unchanged. No extra-axial fluid collection is noted. No orbital pathology is noted. Mild chronic appearing paranasal sinus disease is seen in the bilateral ethmoid and maxillary sinuses. No air-fluid level is noted. MRI/Brain W/WO Contrast IMPRESSION: Acute white matter infarction, with stable size, seen in the area hypodensity noted in the CT of 02/11/2025. Reading Location: [address] CC: Dr. Mitchell Deras DO; Dr. Beka Bowie MD Job Coaching: Signed Normal [facility] Calculated very low density lipoprotein (VLDL) cholesterol measurementOrdered By: Mitchell Lucero on 02-11-2025 VLDL Cholesterol 15 mg/dL 5-[address] [facility] Carotid Duplex Ultrasoundon 02-11-2025 Carotid Duplex Ultrasound [facility] [address] [facility] [address] Carotid Duplex Ultrasound 02/11/25 0817 MR#: [id number] Acct: [id number] Name: LATONYA ELDER Rep #: [id number] : 1970 54 From: Brennon Coronado MD Attending Dr: Dr. Brennon Juarez DO Status: DIS IN Ordering Dr: Mitchell Deras DO Date: 02/11/25 Location: ICU Sex: M C Admitted: 02/11/25 Reason For Study Reason For Study: Carotid stenosis Rt. Velocities/BP Lt. Velocities/BP Prox CCA 52.2/11.6 cm/sec. Prox CCA 52.2/16.3 cm/sec. Mid CCA 47.5/9.7 cm/sec. Mid CCA 51.3/14.5 cm/sec. Dist CCA 40/9.7 cm/sec. Dist CCA 35.2/11.6 cm/sec. Prox ICA 40.4/15.1 cm/sec. Prox ICA 31.5/12.3 cm/sec. Mid ICA 51.7/20.3 cm/sec. Mid ICA 47.2/18 cm/sec. Dist ICA 48.2/15.8 cm/sec. Dist ICA 57.1/23 cm/sec. Rt. ICA/CCA = 1.21. Lt. ICA/CCA = 1.11. Prox ECA 61.7/5 cm/sec. Prox ECA 64.5/6 cm/sec. Rt. Vert. 47.5/18.2 cm/sec. Lt. Vert. 35.8/10.9 cm/sec. Right Extracranial There is homogeneous, smooth atherosclerotic plaque noted in the right common carotid artery. There is homogeneous, smooth atherosclerotic plaque noted in the right internal carotid artery. There is intimal thickening but no significant atherosclerotic plaque noted in the right external carotid artery. Antegrade flow is noted in the right vertebral artery. Left Extracranial There is homogeneous, smooth atherosclerotic plaque noted in the left common carotid artery. There is heterogeneous, irregular atherosclerotic plaque noted in the left internal carotid artery. There is homogeneous, smooth atherosclerotic plaque noted in the left external carotid artery. Antegrade flow is noted in the left vertebral artery. Procedure Carotid Duplex 03470. This is a Carotid Duplex examination using B-mode, color flow and specral Doppler. Exam performed portable in patient room. VL/Carotid Duplex Ultrasound Interpretation Summary Mild (<50%) stenosis right extracranial internal carotid. Mild (<50%) stenosis left extracranial internal carotid. Patent and antegrade vertebrals bilaterally. __ Ordering Physician: Mitchell Deras Referring Physician: Beka Bowie Performed By: Roya Ralph RVT 02/11/25 1526 Date Brennon Coronado MD CC: Dr. Mitchell Deras DO; Dr. Beka Bowie MD; Dr. Brennon Juarez DO Date Dictated: 02/11/25 0817 Date Transcribed: 02/11/25 1526 Job Coaching: Signed Normal [facility] Echo Complete W/ Contraston 02-11-2025 Echo Complete W/ Contrast [facility] Cardiovascular Services [address] [place] [address] Echo Complete W/ Contrast 02/11/25 0953 MR#: [id number] Acct: [id number] Name: LATONYA ELDER Rep #: [id number] : 1970 54 From: Eric Flores MD Attending Dr: Dr. Brennon Juarez DO Status: ADM IN Ordering Dr: Mitchell Deras DO Date: 02/11/25 Location: ICU Sex: M C Admitted: 02/11/25 Reason For Study Reason For Study: TIA/CVA Procedure This was a 2D Doppler, Color Flow transthoracic echocardiogram. Contrast injection was performed. Exam performed portable in ICU/CCU. Left Ventricle Normal LV size. Moderate concentric left ventricular hypertrophy. Severe global left ventricular systolic dysfunction. The left ventricular ejection fraction is 25 %. Stage 3 diastolic dysfunction. There is severe global hypokinesis of the left ventricle. Right Ventricle Normal RV size. Normal systolic function. Atria The left atrium is moderately enlarged. The right atrium is moderately enlarged. Bubble contrast study negative for right to left interatrial shunt. Mitral Valve Normal mitral valve. Mild (1+) eccentric mitral valve insufficiency. Tricuspid Valve Normal tricuspid valve. Moderate (2+) tricuspid valve insufficiency. Pulmonary artery systolic pressure is 54 mmHg. Aortic Valve Trisinus/trileaflet aortic valve. Pulmonic Valve Normal pulmonic valve. Great Vessels Normal aortic root. The pulmonary artery is normal size. Normal inferior vena cava. Pericardium/Pleural No pericardial effusion. Medication Diluted definity 2ml given slow IV push to enhance endocardial definition. Performed a rapid injection of agitated mix of 9 cc saline and 1cc air to assess for atrial septal defect. MMode/2D Measurements Calculations LVIDd: 5.4 cm IVSd: 1.5 cm Ao root diam: 3.9 cm LVIDs: 4.8 cm LVPWd: 1.5 cm RVDd: 4.5 cm FS: 11.6 % __ LAV(MOD-bp): 107.2 ml LVAd ap4: 38.3 cm2 LVAd ap2: 46.7 cm2 LAV(MOD-bp) Indexed: 48.8 ml/m2 LVLd ap4: 8.9 cm LVLd ap2: 9.6 cm LAV(MOD-sp2): 105.8 ml EDV(MOD-sp4): 134.6 ml EDV(MOD-sp2): 185.1 ml LAV(MOD-sp4): 105.1 ml EDV(sp4-el): 141.1 ml EDV(sp2-el): 192.9 ml LVAs ap4: 31.0 cm2 LVAs ap2: 36.7 cm2 LVLs ap4: 8.2 cm LVLs ap2: 8.9 cm ESV(MOD-sp4): 95.0 ml ESV(MOD-sp2): 128.2 ml ESV(sp4-el): 99.2 ml ESV(sp2-el): 128.5 ml EF(MOD-sp4): 29.4 % EF(MOD-sp2): 30.8 % EF(sp4-el): 29.7 % __ SV(MOD-sp4): 39.5 ml SV(MOD-sp2): 57.0 ml SV(sp4-el): 41.9 ml SI(MOD-sp4): 18.0 ml/m2 SI(MOD-sp2): 25.9 ml/m2 __ LA A4 area: 30.7 cm2 LA dimension(2D): 5.0 cm RA A4 area: 23.9 cm2 __ TAPSE: 1.5 cm Time Measurements MV dec time: 0.13 sec Doppler Measurements Calculations MV E max teto: 101.6 cm/sec Lat Peak E' Teto: 6.3 cm/sec Med Peak E' Teto: 7.4 cm/sec MV A max teto: 23.5 cm/sec E/E' lat: 16.0 E/E' med: 13.7 MV E/A: 4.3 __ MV V2 max: 115.0 cm/sec MV dec slope: 809.3 cm/sec2 Ao V2 max: 90.8 cm/sec MV max P.3 mmHg Ao max P.3 mmHg MV V2 mean: 66.1 cm/sec Ao V2 mean: 64.7 cm/sec MV mean P.1 mmHg Ao mean P.9 mmHg MV V2 VTI: 22.6 cm Ao V2 VTI: 15.5 cm AV (velocity ratio): 0.82 __ LV V1 max: 77.6 cm/sec TR max teto: 344.4 cm/sec LV V1 max P.4 mmHg TR max P.5 mmHg LV V1 mean P.4 mmHg LV V1 mean: 57.1 cm/sec LV V1 VTI: 12.7 cm ECHO/Echo Complete W/ Contrast Interpretation Summary Normal LV size. Severe global left ventricular systolic dysfunction. Bubble contrast study negative for right to left interatrial shunt. Mild (1+) eccentric mitral valve insufficiency. Moderate concentric left ventricular hypertrophy. The left ventricular ejection fraction is 25 %. Stage 3 diastolic dysfunction. Compared to previous study, the left ventricular systolic function has worsened.. __ Ordering Physician: Mitchell Deras Performed By: Jose Bruner RCS 02/11/25 1125 Date Eric Flores MD CC: Dr. Mitchell Deras DO; Dr. Beka Bowie MD; Dr. Brennon Juarez DO Date Dictated: 02/11/25952 Date Transcribed: 02/11/25 1125 Job Coaching: S (more content not included)... Normal [facility] Echocardiogram study reportO rdered By: Eric Flores on 02-11-2025 Study report [facility] Cardi[facility] [place] [address] Echo Complete W/ Contrast 02/11/2553 MR#: [id number] Acct: [id number] Name: LATONYA ELDER Rep #:[id number] : 1970 54 From: Eric Torrez Attending Dr: Dr. Brennon Juarez DO Status: ADM IN Ordering Dr: Mitchell Deras DO Date: 02/11/25 Location: ICU Sex: M C Admitted: 02/11/25 Reason For Study Reason For Study: TIA/CVA Procedure This was a 2D Doppler, Color Flow transthoracic echocardiogram. Contrast injection was performed. Exam performed portable in ICU/CCU. Left Ventricle Normal LV size. Moderate concentric left ventricular hypertrophy. Severe global left ventricular systolic dysfunction. The left ventricular ejection fraction is 25 %. Stage 3 diastolic dysfunction. There is severe global hypokinesis of the left ventricle. Right Ventricle Normal RV size. Normal systolic function. Atria The left atrium is moderately enlarged. The right atrium is moderately enlarged.Bubble contrast study negative for right to left interatrial shunt. Mitral Valve Normal mitral valve. Mild (1+) eccentric mitral valve insufficiency. Tricuspid Valve Normal tricuspid valve. Moderate (2+) tricuspid valve insufficiency. Pulmonary artery systolic pressure is 54 mmHg. Aortic Valve Trisinus/trileaflet aortic valve. Pulmonic Valve Normal pulmonic valve. Great Vessels Normal aortic root. The pulmonary artery is normal size. Normal inferior vena cava. Pericardium/Pleural No pericardial effusion. Medication Diluted definity 2ml given slow IV push to enhance endocardial definition. Performed a rapid injection of agitated mix of 9 cc saline and 1cc air to assess for atrial septal defect. MMode/2D Measurements & Calculations LVIDd: 5.4 cm IVSd: 1.5 cm Ao root diam: 3.9 cm LVIDs: 4.8 cm LVPWd: 1.5 cm RVDd: 4.5 cm FS: 11.6 % __ LAV(MOD-bp): 107.2 ml LVAd ap4: 38.3 cm2 LVAd ap2: 46.7 cm2 LAV(MOD-bp) Indexed: 48.8 ml/m2 LVLd ap4: 8.9 cm LVLd ap2: 9.6 cm LAV(MOD-sp2): 105.8 ml EDV(MOD-sp4): 134.6 ml EDV(MOD-sp2): 185.1 ml LAV(MOD-sp4): 105.1 ml EDV(sp4-el): 141.1 ml EDV(sp2-el): 192.9 ml LVAs ap4: 31.0 cm2 LVAs ap2: 36.7 cm2 LVLs ap4: 8.2 cm LVLs ap2: 8.9 cm ESV(MOD-sp4): 95.0 ml ESV(MOD-sp2): 128.2 ml ESV(sp4-el): 99.2 ml ESV(sp2-el): 128.5 ml EF(MOD-sp4): 29.4 % EF(MOD-sp2): 30.8 % EF(sp4-el): 29.7 % ____ SV(MOD-sp4): 39.5 ml SV(MOD-sp2): 57.0 ml SV(sp4-el): 41.9 ml SI(MOD-sp4): 18.0 ml/m2 SI(MOD-sp2): 25.9 ml/m2 __ LA A4 area: 30.7 cm2 LA dimension(2D): 5.0 cm RA A4 area: 23.9 cm2 __ TAPSE: 1.5 cm Time Measurements MV dec time: 0.13 sec Doppler Measurements & Calculations MV E max teto: 101.6 cm/sec Lat Peak E' Teto: 6.3 cm/sec Med Peak E' Teto: 7.4 cm/sec MV A max teto: 23.5 cm/sec E/E' lat: 16.0 E/E' med: 13.7 MV E/A: 4.3 _ _ MV V2 max: 115.0 cm/sec MV dec slope: 809.3 cm/sec2 Ao V2 max: 90.8 cm/sec MV max P.3 mmHg Ao max P.3 mmHg MV V2 mean: 66.1 cm/sec Ao V2 mean: 64.7 cm/sec MV mean P.1 mmHg Ao mean P.9 mmHg MV V2 VTI: 22.6 cm Ao V2 VTI: 15.5 cm AV (velocity ratio): 0.82 ____ LV V1 max: 77.6 cm/sec TR max teto: 344.4 cm/sec LV V1 max P.4 mmHg TR max P.5 mmHg LV V1 mean P.4 mmHg LV V1 mean: 57.1 cm/sec LV V1 VTI: 12.7 cm ECHO/Echo Complete W/ Contrast Interpretation Summary Normal LV size. Severe global left ventricular systolic dysfunction. Bubble contrast study negative for right to left interatrial shunt. Mild (1+) eccentric mitral valve insufficiency. Moderate concentric left ventricular hypertrophy. The left ventricular ejection fraction is 25 %. Stage 3 diastolic dysfunction. Compared to previous study, the left ventricular systolic function has worsened.. __ Ordering Physician: Mitchell Deras Performed By: Jose Bruner RCS 02/11/251124 Date _ Eric Flores MD CC: Dr. Mitchell Deras DO; Dr. Beka Bowie MD; Dr. Brennon Juarez DO ~ Date Dictated: 02/11/25 0953 Date Transcribed: 02/11/25 1125 Job Coaching: Signed [facility] Work Phone: Electrocardiogram reportOrde red By: Eric Flores on 02-11-2025 EKG study [facility] Cardiovascular Services [address] [place] [address] 12 Lead EKG 02/10/25 1808 MR#: [id number] Acct: [id number] Name: LATONYA ELDER Rep #:[id number] : 1970 54 From: Eric Flores MD Attending Dr: Dr. Brennon Juarez DO Status: ADM IN Ordering Dr: Jasbir Curry DO Date: Location: ICU Sex: M C Admitted: 02/11/25 Test Reason : CP Blood Pressure : */* mmHG Vent. Rate : 89 BPM Atrial Rate : 89 BPM P-R Int : 196 ms QRS Dur : 112 ms QT Int : 394 ms P-R-T Axes : 73 -29 85 degrees QTcB Int : 479 ms Normal sinus rhythm Possible Left atrial enlargement Septal infarct (cited on or before 26-Jun-2022) Abnormal ECG Confirmed by SANDRA EVANGELISTA, ERIC ([id number]), senior technical editor TESS PERRY ([id number]) on 02/11/2025 8:32:04 AM Referred By: Confirmed By: ERIC FLORES MD 02/11/25 0832 Date _ Eric Flores MD CC: Dr. Beka Bowie MD; Dr. Brennon Juarez DO; Dr. Jasbir Curry DO ~ Signed [facility] Work Phone: Ethanol [Mass/Vol]Ordered By : Mitchell Lucero on 02-11-2025 Ethyl Alcohol Level < 10.1 mg/dL <10.1 [facility] Comment on above: This test is for med ical purposes only. The legal definition of intoxication varies according to local law. FOLATES,SERUM (FOLIC ACID)on 02-11-2025 FOLATES,SERUM 7.12 ng/mL Normal 4.60-34.[address] [facility] Comment on above: Result Comment: Hemo lysis, Results will be affected, Requires Recollection. Performed By: #### L 501.4020 #### [facility] [address] [place], [place], [id number] Folate [Mass/Vol]Ordered By: Mitchell Lucero on 02-11-2025 Serum Folate 7.12 ng/mL 4.60-34.[address] [facility] Comment on above: Hemolysis, Results w ill be affected, Requires Recollection. [facility] deOrdered By: Brennon Juarez on 02-11-2025 Bedside Glucose (Misc Panel) 339 mg/dL High 74-[address] [facility] Comment on above: MANAGEMENT OF PATIEN T CARE PER NURSING PROTOCOL Hemoglobin A1con 02-11-2025 HbA1c (Bld) [Mass fraction] 10.8 % Normal <=5.[address] [facility] Comment on above: Performed By: #### L 501.4020 #### [facility] [address] [place], [address] Hemoglobin A1c percentageOrd ered By: Mitchell Lucero on 02-11-2025 HbA1c (Bld) [Mass fraction] 10.8 % >5.[address] [facility] L. pneumophila Ag Ql (U)Orde red By: Brennon Juarez on 02-11-2025 Legionella Antigen [facility] L503.0106on 02-11-2025 Cobalamin (Vitamin B12) [Mass/Vol] 573 pg/mL Normal 180-[address] [facility] Comment on above: Performed By: #### L 501.4021, L506.0400, L501.9520, L100.0100, L503.7505, L500.2500 #### [facility] [address] [place], [address] LDL calc ser/plasOrdered By: Mitchell Lucero on 02-11-2025 LDL Cholesterol, Calculated 160 mg/dL [facility] Comment on above: Tnvorwjydd=330-602 m g/dL & Higher Ncri=153 mg/dL or greater Legionella Antigen Urineon 0 02-11-2025 LEGU URINE, RANDOM Legionella Antigen result interpretation: L pneumo Ag Ur Ql Negative Presumptive negative for Legionella pneumophila serogroup 1 antigen in urine, suggesting no recent or current infection. Legionella Ag, Urine Negative (See interpretation below) Normal [facility] Comment on above: Performed By: #### L 503.6005, L300.3900, L501.5425, L100.0100, L500.2500, L300.4310, L503.6620 #### [facility] [address] [place], [address] Lipid Profileon 02-11-2025 CHOL:HDL 5.[address] [facility] Comment on above: Order Comment: Comme nts: NPO at [place] prior to lipid panel Performed By: #### L 501.4021, L506.0400, L501.9520, L100.0100, L503.7505, L500.2500 #### [facility] [address] [place], [address] Cholesterol [Mass/Vol] 215 mg/dL High <=200 [facility] Comment on above: Order Comment: Comme nts: NPO at [place] prior to lipid panel Result Comment: Chol esterol level, Desirable <200 mg/dL Borderline high cholesterol 200-239 mg/dL High cholesterol >=240 mg/dL Recommendations of the NCEP Adult Treatment Panel for the following risk-cutoff thresholds for the [place] population. Performed By: #### L 501.4021, L506.0400, L501.9520, L100.0100, L503.7505, L500.2500 #### [facility] [address] [place], [address] Cholesterol in HDL [Mass/Vol] 40 mg/dL Normal [facility] Comment on above: Order Comment: Comme nts: NPO at [place] prior to lipid panel Result Comment: Veronica onal Cholesterol Education Program (NCEP) guidelines: <40 mg/dL: Low HDL-cholesterol (major risk factor for CHD) >= 60 mg/dL: High HDL-cholesterol (negative risk factor for CHD) HDL-cholesterol is affected by a number of factors, e.g. smoking, exercise, hormones, sex and age. Performed By: #### L 501.4021, L506.0400, L501.9520, L100.0100, L503.7505, L500.2500 #### [facility] [address] [place], [address] Cholesterol in LDL [Mass/Vol] 160 mg/dL Normal [facility] Comment on above: Order Comment: Comme nts: NPO at [place] prior to lipid panel Result Comment: Bord bzahvc=915-048 mg/dL Higher Bfwe=279 mg/dL or greater Performed By: #### L 501.4021, L506.0400, L501.9520, L100.0100, L503.7505, L500.2500 #### [facility] [address] [place], [address] Cholesterol in VLDL [Mass/Vol] 15 mg/dL Normal 5-[address] [facility] Comment on above: Order Comment: Comme nts: NPO at [place] prior to lipid panel Performed By: #### L 501.4021, L506.0400, L501.9520, L100.0100, L503.7505, L500.2500 #### [facility] [address] [place], [address] Triglyceride [Mass/Vol] 76 mg/dL Normal [facility] Comment on above: Order Comment: Comme nts: NPO at [place] prior to lipid panel Result Comment: The drugs N-Acetylcysteine and Metamizole may falsely depress this assay. Normal range: <150 mg/dL Borderline High: 150-199 mg/dL High: 200-499 mg/dL Very High: >500 mg/dL Performed By: #### L 501.4021, L506.0400, L501.9520, L100.0100, L503.7505, L500.2500 #### [facility] [address] [place], [address] MR/CON.PCM.NEon 02-11-2025 MR/CON.PCM.NE [facility] Records Department [address] [place] [address] Consultation - Neurology 02/11/25 1248 MR#: [id number] Acct: [id number] Name: LATONYA ELDER Rep #: [id number] : 1970 54 From: Eduardo Deal MD PCP: Dr. Beka Bowie MD Status:DIS IN Location: ICU [id number] Assessment and Plan: Neuro Assessment/Plan 54 y/o man with h/o HTN, DLD, obesity, DM, CAD s/p stent and NSTEMI on plavix and ASA, b/l LE DVT not on AC p/w confusion for the last 2 days. He denies aphasia and just reports confusion. He reported that his symptoms have been pvmehe-qee-pglkkp for the past several days and since things were not getting better they decided to come in for further evaluation and treatment. He also admits to intermittent chest discomfort that is pressure-like, heavy, moderate, nonradiating with associated shortness of breath and wheezing with cough productive of increasing yellowish sputum, but he denies chest pain at this time. CTA- right A1 occlusion w/ retrograde filling through ACom and 50% of LICA. CT head- hypodensity in deep white matter on right side. A1c-10.8. LDL-160. MRI brain -right CR stroke Diagnosis: Right CR stroke, cryptogenic Plan: Continue ASA and plavix along with statin. Event monitor on discharge. Follow up TTE and workup for chest pain. OT/PT/PLANIMETER OPERATOR I personally attended this patient and spent a total time of 70 minutes evaluating this patient including clinical assessment, review of chart, medical history imaging, and determining appropriate treatment and workup. HPI Consult Data Date of Consult: 02/11/25 HPI Narrative HPI Narrative: 54 y/o man with h/o HTN, DLD, obesity, DM, CAD s/p stent and NSTEMI on plavix and ASA, b/l LE DVT not on AC p/w confusion for the last 2 days. He denies aphasia and just reports confusion. He reported that his symptoms have been hrsqzc-vvn-agvriz for the past several days and since things were not getting better they decided to come in for further evaluation and treatment. He also admits to intermittent chest discomfort that is pressure-like, heavy, moderate, nonradiating with associated shortness of breath and wheezing with cough productive of increasing yellowish sputum, but he denies chest pain at this time. He denies any recent sick contacts or similar previous episodes plus he states he has been taking his medications as prescribed. He admits to associated headache and lightheadedness with a feeling like he is drifting to the Left but he is able to compensate in addition to mildly dysarthric speech. He denies related fever, chills, nausea, vomiting, diarrhea, constipation, abdominal pain, palpitations, heart racing, dysuria, hematuria, rash or back pain but he does admit to taking 2 Excedrin twice daily routinely. CTA- right A1 occlusion w/ retrograde filling through ACom and 50% of LICA. CT head- hypodensity in deep white matter on right side. Today, he reports feeling better with NIHSS-0. [facility] Medical History History of DVT (deep vein thrombosis) Respiratory insufficiency Elevated troponin Acute bronchitis COPD exacerbation Congestive heart failure Acute sinusitis, unspecified Left shoulder pain Insulin dependent diabetes mellitus Coronary artery disease Essential hypertension Cluster headache Migraine Headache Diabetes Obesity Community acquired pneumonia Smoker Asthma Myocardial infarct Ischemic cardiomyopathy Obesity (BMI 30.0-34.9) Chronic obstructive pulmonary disease (COPD) Nicotine dependence COPD (chronic obstructive pulmonary disease) Hyperlipidemia History of non-ST elevation myocardial infarction (NSTEMI) (11/22/20) Atherosclerosis of [place] coronary artery of qu[place] heart without angina pectoris Non-ST elevation NE (NSTEMI) Home Medications ???Medication ???Instructions ???Recorded ???Last Taken ???Type aspirin 81 mg chewable tablet 81 mg PO DAILY heart health 02/10/25 History loratadine 10 mg tablet 10 mg PO DAILY PRN allergies 06/26 Unknown History amlodipine 10 mg tablet 10 mg PO DAILY blood pressure #90 06/25/23 02/10/25 Rx tabs lisinopril 20 mg tablet 20 mg PO BID blood pressure #180 0 11/26/23 Unknown Rx tabs insulin degludec 200 unit/mL (3 50 unit (0.25 mL) subcut QHS blood 12/28/23 02/09/25 Rx mL) subcutaneous pen (Tresiba sugar 3 months #22.5 mL FlexTouch U-200 insulin) ranolazine 1,000 mg 1,000 mg PO BID heart #60 tabs 02/10/25 Rx tablet,extended release,12 hr clopidogrel 75 mg tablet (Plavix) 75 mg PO DAILY anti platelet #90 01/15/24 02/10/25 Rx tabs isosorbide mononitrate 60 mg 60 mg PO BID heart #180 TABLETS 02/10/25 Rx tablet,extended release 24 hr nitroglycerin 0.4 mg sublingual 0.4 mg sublingual Q5-15M chest 0 (more content not included)... Normal [facility] Magnetic resonance imaging r eportOrdered By: Mitchell King on 02-11-2025 Study report [facility] Imaging Services [address] [place] [address] Brain W/WO Contrast MR#: [id number] Acct: [id number] Name: LATONYA ELDER Rep #: [id number] : 1970 M 54 From: Fabien King MD PCP: Dr. Beka Bowie MD Status: A DM IN Study:Brain W/WO Contrast Date of Exam: 02/11/25 Exam# [id number] Ordering Dr: Mitchell King DO EXAM: MRI of the brain without and with contrast CLINICAL HISTORY: Large vessel occlusion. Acute CVA (versus mass) on CT. COMPARISON: Head CT of 02/10/2025. TECHNIQUE: MRI of the brain without and with contrast. FINDINGS: The previously noted hypodensity on the CT of 02/10/2025, does appear to be an acute area of white matter infarction, given the diffusion restriction present the current examination. It is measured at approximately 8 x 12 x 10 mm. No adjacent edema or mass effect is seen. No midline shift is noted. No additional focus of diffusion restriction is seen. Ventricles appear symmetric and unchanged. No extra-axial fluid collection is noted. No orbital pathology is noted. Mild chronic appearing paranasal sinus disease is seen in the bilateral ethmoid and maxillary sinuses. No air-fluid level is noted. MRI/Brain W/WO Contrast IMPRESSION: Acute white matter infarction, with stable size, seen in the area hypodensity noted in the CT of 02/11/2025. Reading Location: [address] CC: Dr. Mitchell Deras DO; Dr. Beka Bowie MD ~ Job Coaching: Signed [facility] Methadone, urineOrdered By: Mitchell Lucero on 02-11-2025 Urine Methadone Screen Negative < 300 ng/mL [facility] No Panel InformationOrdered By: Mitchell Lucero on 02-11-2025 Urine Buprenorphine Qualitative Negative < 200 ng/mL [facility] Urine Oxycodone Screen Negative < 100 ng/mL [facility] Quantitative urine opiates m easurementOrdered By: Mitchell Lucero on 02-11-2025 Opiates Ql (U) Negative < 300 ng/mL [facility] Screening total cholesterol/ high density lipoprotein (HDL) cholesterol ratioOrdered By: Mitchell Lucero on 02-11-2025 Cholesterol.total/Choles terol in HDL [Mass ratio] 5.44 {ratio} [facility] Serum or plasma cholesterol in HDL measurement (mass/volume)Ordered By: Mitchell Lucero on 02-11-2025 Cholesterol in HDL [Mass/Vol] 40 mg/dL >[address] [facility] Comment on above: National Cholesterol Education Program (NCEP) guidelines:<40 mg/dL: Low HDL-cholesterol (major risk factor for CHD)>= 60 mg/dL: High HDL-cholesterol (negative risk factor for CHD)HDL-cholesterol is affected by a number of factors, e.g. smoking, exercise, hormones, sex and age. Serum or plasma cholesterol measurement (mass/volume)Ordered By: Mitchell Lucero on 02-11-2025 Cholesterol [Mass/Vol] 215 mg/dL High <201 [facility] Comment on above: Cholesterol level, D esirable <200 mg/dLBorderline high cholesterol 200-239 mg/dLHigh cholesterol >=240 mg/dLRecommendations of the NCEP Adult Treatment Panel for the following risk-cutoff thresholds for the [place] population. Strep pneumoniae Antig(UR,CS F)on 02-11-2025 STPAG URINE INTERPRETATION Strep pneumoniae Antig(UR,CSF) Strep pneumoniae Antig(UR,CSF) Negative Urine Presumptive negative for pneumococcal pneumonia, suggesting no current or recent pneumococcal infection. Infection due to S pneumoniae cannot be ruled out since the antigen present in the sample may be below the detection limit of the test. Strep pneumo Test Negative URINE (See interpretation below) Normal [facility] Comment on above: Performed By: #### L 503.6005, L300.3900, L501.5425, L100.0100, L500.2500, L300.4310, L503.6620 #### [facility] [address] [place], [address] Streptococcus pneumoniae ant igen assayOrdered By: Brennon Juarez on 02-11-2025 Streptococcus pneumoniae Antigen (M [facility] TSH DL <= 0.005 mIU/L QnOrde red By: Mitchell Lucero on 02-11-2025 Thyroid Stimulating Hormone (TSH) 0.973 uIU/mL 0.300-4.[address] [facility] Thyroid Stim Hormone (TSH)on 02-11-2025 TSH 0.973 uIU/mL Normal 0.300-4.[address] [facility] Comment on above: Performed By: #### L 501.4021, L506.0400, L501.9520, L100.0100, L503.7505, L500.2500 #### [facility] [address] [place], [address] Triglycerides measurementOrd ered By: Mitchell Lucero on 02-11-2025 Triglyceride [Mass/Vol] 76 mg/dL <199 [facility] Comment on above: The drugs N-Acetylcy steine and Metamizole may falsely depress this assay. Normal range: <150 mg/dLBorderline High: 150-199 mg/dLHigh: 200-499 mg/dLVery High: >500 mg/dL Urine Drug Screen (VISTA)on 02-11-2025 AMPHETAMINES Negative Normal <1000 ng/mL [facility] Comment on above: Performed By: #### L 501.4021, L506.0400, L501.9520, L100.0100, L503.7505, L500.2500 #### [facility] [address] [place], [address] BARBITIURATES Negative Normal < 200 ng/mL [facility] Comment on above: Performed By: #### L 501.4021, L506.0400, L501.9520, L100.0100, L503.7505, L500.2500 #### [facility] [address] [place], [address] BENZODIAZIPINE Negative Normal < 200 ng/mL [facility] Comment on above: Performed By: #### L 501.4021, L506.0400, L501.9520, L100.0100, L503.7505, L500.2500 #### [facility] [address] [place], [address] BUP Ur Drug Scr Negative Normal < 200 ng/mL [facility] Comment on above: Performed By: #### L 501.4021, L506.0400, L501.9520, L100.0100, L503.7505, L500.2500 #### [facility] [address] [place], [address] COCAINE Negative Normal < 300 ng/mL [facility] Comment on above: Performed By: #### L 501.4021, L506.0400, L501.9520, L100.0100, L503.7505, L500.2500 #### [facility] [address] [place], [address] Fentanyl Negative Normal [facility] Comment on above: Performed By: #### L 501.4021, L506.0400, L501.9520, L100.0100, L503.7505, L500.2500 #### [facility] [address] [place], [address] METHADONE Negative Normal < 300 ng/mL [facility] Comment on above: Performed By: #### L 501.4021, L506.0400, L501.9520, L100.0100, L503.7505, L500.2500 #### [facility] [address] [place], [address] OPIATES Negative Normal < 300 ng/mL [facility] Comment on above: Performed By: #### L 501.4021, L506.0400, L501.9520, L100.0100, L503.7505, L500.2500 #### [facility] [address] [place], [address] OXYCODONE Negative Normal < 100 ng/mL [facility] Comment on above: Performed By: #### L 501.4021, L506.0400, L501.9520, L100.0100, L503.7505, L500.2500 #### [facility] [address] [place], [address] PCP Negative Normal < 25 ng/mL [facility] Comment on above: Performed By: #### L 501.4021, L506.0400, L501.9520, L100.0100, L503.7505, L500.2500 #### [facility] [address] [place], [address] THC Negative Normal < 50 ng/mL [facility] Comment on above: Performed By: #### L 501.4021, L506.0400, L501.9520, L100.0100, L503.7505, L500.2500 #### [facility] [address] [place], [address] Urine benzodiazepine levelOr dered By: Mitchell Lucero on 02-11-2025 Benzodiazepines Ql (U) Negative < 200 ng/mL [facility] Urine cocaine levelOrdered B y: Mitchell Lucero on 02-11-2025 Cocaine Ql (U) Negative < 300 ng/mL [facility] Urine pdpnd-6-dcpoaeyjkhxmhl abinol (THC) measurementOrdered By: Mitchell Lucero on 02-11-2025 Cannabinoids Screen Ql (U) Negative < 50 ng/mL [facility] Urine phencyclidine (PCP) de tectionOrdered By: Mitchell Lucero on 02-11-2025 Phencyclidine Ql (U) Negative < 25 ng/mL [facility] Vitamin B12 ser/plasOrdered By: Mitchell Lucero on 02-11-2025 Cobalamin (Vitamin B12) [Mass/Vol] 573 pg/mL 180-[address] [facility] fentaNYL Screen Ql (U)Ordere d By: Mitchell Lucero on 02-11-2025 Urine Fentanyl Screen Negative [facility] 12 Lead EKGon 02-10-2025 12 Lead EKG [facility] Cardiovascular Services [address] [place] [address] 12 Lead EKG 02/10/25 1808 MR#: [id number] Acct: [id number] Name: LATONYA ELDER Rep #: [id number] : 1970 54 From: Eric Flores MD Attending Dr: Dr. Brennon Juarez DO Status: ADM IN Ordering Dr: Jasbir Curry DO Date: 02/10/25 Location: ICU Sex: M C Admitted: 02/11/25 Test Reason : CP Blood Pressure : */* mmHG Vent. Rate : 89 BPM Atrial Rate : 89 BPM P-R Int : 196 ms QRS Dur : 112 ms QT Int : 394 ms P-R-T Axes : 73 -29 85 degrees QTcB Int : 479 ms Normal sinus rhythm Possible Left atrial enlargement Septal infarct (cited on or before 26-Jun-2022) Abnormal ECG Confirmed by ERIC FLORES MD ([id number]), senior technical editor TESS PERRY ([id number]) on 02/11/2025 8:32:04 AM Referred By: Confirmed By: ERIC FLORES MD 02/11/25 0832 Date Eric Flores MD CC: Dr. Beka Bowie MD; Dr. Brennon Juarez DO; Dr. Jasbir Curry DO Signed Normal [facility] Absolute neutrophil countOrd ered By: Jasbir Curry on 02-10-2025 Neutrophils (Bld) [#/Vol] 5.8 10*3/uL 2.0-7.[address] [facility] Anion gap in Serum or Plasma Ordered By: Jasbir Curry on 02-10-2025 Anion gap [Moles/Vol] 12 mmol/L 5-15 [facility] BUN/creatinine ratioOrdered By: Jasbir Curry on 02-10-2025 Urea nitrogen/Creatinine [Mass ratio] 22.0 mg/mg High - [facility] Base excess Calc (BldV) [Mol es/Vol]Ordered By: Jasbir Curry on 02-10-2025 Venous Blood Base Excess 3 mmol/L -1.0-3.[address] [facility] Basic Metabolic Profile (BMP )on 02-10-2025 BUN/CRE 22.0 RATIO High 10- [facility] Comment on above: Performed By: #### L 501.4021, L506.0400, L501.9520, L100.0100, L503.7505, L500.2500 #### [facility] [address] [place], [address] Calcium [Mass/Vol] 9.1 mg/dL Normal 7.6-11.0 [facility] Comment on above: Performed By: #### L 501.4021, L506.0400, L501.9520, L100.0100, L503.7505, L500.2500 #### [facility] [address] [place], [address] Chloride [Moles/Vol] 102 mmol/L Normal 98-108 [facility] Comment on above: Performed By: #### L 501.4021, L506.0400, L501.9520, L100.0100, L503.7505, L500.2500 #### [facility] [address] [place], [address] CO2 [Moles/Vol] 23.1 mmol/L Normal 21.0-32.[address] [facility] Comment on above: Performed By: #### L 501.4021, L506.0400, L501.9520, L100.0100, L503.7505, L500.2500 #### [facility] [address] [place], [address] Creatinine [Mass/Vol] 1.09 mg/dL Normal 0.70-1.20 [facility] Comment on above: Performed By: #### L 501.4021, L506.0400, L501.9520, L100.0100, L503.7505, L500.2500 #### [facility] [address] [place], [address] ECRCL 93.49 ml/min Normal 50-[address] [facility] Comment on above: Performed By: #### L 501.4021, L506.0400, L501.9520, L100.0100, L503.7505, L500.2500 #### [facility] [address] [place], [address] GAP 12 Normal 5-[address] [facility] Comment on above: Performed By: #### L 501.4021, L506.0400, L501.9520, L100.0100, L503.7505, L500.2500 #### [facility] [address] [place], [address] GFR/1.73 sq M.predicted among non-blacks MDRD (S/P/Bld) [Vol rate/Area] 81 mL/min/{1.73_m2} Normal >[address] [facility] Comment on above: Result Comment: mL/m in/1.73m2 CKD-EPI Creatinine Equation (2020) Performed By: #### L 501.4021, L506.0400, L501.9520, L100.0100, L503.7505, L500.2500 #### [facility] [address] [place], [address] Glucose [Mass/Vol] 255 mg/dL High 70-99 [facility] Comment on above: Performed By: #### L 501.4021, L506.0400, L501.9520, L100.0100, L503.7505, L500.2500 #### [facility] [address] [place], [address] Potassium [Moles/Vol] 4.3 mmol/L Normal 3.3-5.1 [facility] Comment on above: Result Comment: Hemo lysis present, Results??could be affected. ?? Performed By: #### L 501.4021, L506.0400, L501.9520, L100.0100, L503.7505, L500.2500 #### [facility] [address] [place], [address] Sodium [Moles/Vol] 137 mmol/L Normal 133-145 [facility] Comment on above: Performed By: #### L 501.4021, L506.0400, L501.9520, L100.0100, L503.7505, L500.2500 #### [facility] [address] [place], [address] Urea nitrogen [Mass/Vol] 24 mg/dL High 4-[address] [facility] Comment on above: Performed By: #### L 501.4021, L506.0400, L501.9520, L100.0100, L503.7505, L500.2500 #### [facility] [address] [place], [address] Basophil percentageOrdered B y: Jasbir Curry on 02-10-2025 Basophils/100 WBC (Bld) 0.8 % 0-1 [facility] Bedside Glucoseon 02-10-2025 FINGERSTICK GLU 234 mg/dL High 74-[address] [facility] Comment on above: Result Comment: CARLOS BONILLA OF PATIENT CARE PER NURSING PROTOCOL Performed By: #### L 501.4021, L506.0400, L501.9520, L100.0100, L503.7505, L500.2500 #### [facility] [address] [place], [address] CBC W/Diff, Automatedon 01-18 Absolute Lymph 2.41 X10 3/uL Normal 0.83-4.[address] [facility] Comment on above: Performed By: #### L 501.4021, L506.0400, L501.9520, L100.0100, L503.7505, L500.2500 #### [facility] [address] [place], [address] Absolute Neut 5.8 X10 3/uL Normal 2.0-7.[address] [facility] Comment on above: Performed By: #### L 501.4021, L506.0400, L501.9520, L100.0100, L503.7505, L500.2500 #### [facility] [address] [place], [address] Basophils/100 WBC (Bld) 0.8 % Normal 0-1 [facility] Comment on above: Performed By: #### L 501.4021, L506.0400, L501.9520, L100.0100, L503.7505, L500.2500 #### [facility] [address] [place], [address] Eosinophils/100 WBC (Bld) 2.4 % Normal 0-[address] [facility] Comment on above: Performed By: #### L 501.4021, L506.0400, L501.9520, L100.0100, L503.7505, L500.2500 #### [facility] [address] [place], [address] Erythrocyte distribution width (RBC) [Ratio] 13.9 % Normal 11.6-14.[address] [facility] Comment on above: Performed By: #### L 501.4021, L506.0400, L501.9520, L100.0100, L503.7505, L500.2500 #### [facility] [address] [place], [address] Hematocrit (Bld) [Volume fraction] 41.1 % Normal 40-[address] [facility] Comment on above: Performed By: #### L 501.4021, L506.0400, L501.9520, L100.0100, L503.7505, L500.2500 #### [facility] [address] [place], [address] Hemoglobin (Bld) [Mass/Vol] 13.5 g/dL Normal 13.0-16.[address] [facility] Comment on above: Performed By: #### L 501.4021, L506.0400, L501.9520, L100.0100, L503.7505, L500.2500 #### [facility] [address] [place], [address] IG% 0.300 Normal 0.0-0.[address] [facility] Comment on above: Result Comment: IG% - Immature Granulocytes (promyelocytes, myelocytes and metamyelocytes) > 1% indicates that a LEFT SHIFT is Present. Performed By: #### L 501.4021, L506.0400, L501.9520, L100.0100, L503.7505, L500.2500 #### [facility] [address] [place], [address] Lymphocytes/100 WBC (Bld) 25.5 % Normal 19-[address] [facility] Comment on above: Performed By: #### L 501.4021, L506.0400, L501.9520, L100.0100, L503.7505, L500.2500 #### [facility] [address] [place], [address] MCH (RBC) [Entitic mass] 27.4 pg Normal 27.0-32.[address] [facility] Comment on above: Performed By: #### L 501.4021, L506.0400, L501.9520, L100.0100, L503.7505, L500.2500 #### [facility] Laboratory [address] [place], [address] MCHC (RBC) [Mass/Vol] 32.8 g/dL Normal 32-36 [facility] Comment on above: Performed By: #### L 501.4021, L506.0400, L501.9520, L100.0100, L503.7505, L500.2500 #### [facility] [address] [place], [address] MCV (RBC) [Entitic vol] 83.5 fL Normal 80-94 [facility] Comment on above: Performed By: #### L 501.4021, L506.0400, L501.9520, L100.0100, L503.7505, L500.2500 #### [facility] [address] [place], [address] Monocytes/100 WBC (Bld) 9.2 % Normal 0-10 [facility] Comment on above: Performed By: #### L 501.4021, L506.0400, L501.9520, L100.0100, L503.7505, L500.2500 #### [facility] [address] [place], [address] Neutrophils/100 WBC (Bld) 61.8 % Normal 47-[address] [facility] Comment on above: Performed By: #### L 501.4021, L506.0400, L501.9520, L100.0100, L503.7505, L500.2500 #### [facility] [address] [place], [address] Nucleated RBC (Bld) [#/Vol] 0 10*3/uL Normal 0-[address] [facility] Comment on above: Performed By: #### L 501.4021, L506.0400, L501.9520, L100.0100, L503.7505, L500.2500 #### [facility] [address] [place], [address] Platelet mean volume (Bld) [Entitic vol] 10.6 fL Normal 6.2-12.[address] [facility] Comment on above: Performed By: #### L 501.4021, L506.0400, L501.9520, L100.0100, L503.7505, L500.2500 #### [facility] [address] [place], [address] Platelets (Bld) [#/Vol] 317 10*3/uL Normal 150-[address] [facility] Comment on above: Performed By: #### L 501.4021, L506.0400, L501.9520, L100.0100, L503.7505, L500.2500 #### [facility] [address] [place], [address] RBC (Bld) [#/Vol] 4.92 10*6/uL Normal 4.6-6.2 [facility] Comment on above: Performed By: #### L 501.4021, L506.0400, L501.9520, L100.0100, L503.7505, L500.2500 #### [facility] [address] [place], [address] RDW SD 42.5 fl Normal 35.1-43.[address] [facility] Comment on above: Performed By: #### L 501.4021, L506.0400, L501.9520, L100.0100, L503.7505, L500.2500 #### [facility] [address] [place], [address] WBC (Bld) [#/Vol] 9.4 10*3/uL Normal 4.4-11.0 [facility] Comment on above: Performed By: #### L 501.4021, L506.0400, L501.9520, L100.0100, L503.7505, L500.2500 #### [facility] [address] [place], [address] CO2 (BldV) [Moles/Vol]Ordere d By: Jasbir Curry on 02-10-2025 CO2 [Moles/Vol] 30 mmol/L 23-[address] [facility] CO2 (BldV) [Partial pressure ]Ordered By: Jasbir Curry on 02-10-2025 Bed Mix Venous Bld PCO2 at Pat Temp 47.6 mmHg 41-[address] [facility] Carbon dioxide, total [Moles /volume] in Central venous bloodOrdered By: Jasbir Curry on 02-10-2025 CO2 [Moles/Vol] 23.1 mmol/L 21.0-32.[address] [facility] Chest PA and Lateralon 02-10 Chest PA and Lateral [facility] Imaging Services [address] [place] [address] Chest PA and Lateral MR#: [id number] Acct: [id number] Name: LATONYA ELDER Rep #: [id number] : 1970 M 54 From: Harvey Hassan i, MD PCP: Dr. Beka Bowie MD Status: REG ER Study: Chest PA and Lateral Date of Exam: 02/10/25 Exam# [id number] Ordering Dr: Jasbir Curry DO PROCEDURE: CHEST PA AND LATERAL 02/10/2025 REASON FOR EXAM: CHEST PAIN TECHNIQUE: Frontal and lateral views of the chest. COMPARISON: Chest x-ray dated 10/11/2024. FINDINGS: Diffuse bilateral pulmonary infiltrates are present, new since prior examination. This is worse within the lower lung zones. Differential possibility includes, but not limited to diffuse infectious or inflammatory process. No large pleural effusion. No acute osseous abnormalities present. Postsurgical changes again seen within the cervical spine. RAD/Chest PA and Lateral IMPRESSION: Diffuse bilateral pulmonary infiltrates. Differential includes diffuse infection versus inflammatory process within the lungs. Follow-up until complete resolution is recommended. These findings are new since prior examination. Reading Location: [id number] CC: Dr. Beka Bowie MD; Dr. Jasbir Curry DO Job Coaching: Signed Normal [facility] Chloride assayOrdered By: Cheng Curry on 02-10-2025 Chloride [Moles/Vol] 102 mmol/L 98-108 [facility] Emergency Department Summary on 02-10-[address] [facility] Medical Records Department [address] [place] [address] Emergency Department Summary 02/10/25 MR#: [id number] Acct: [id number] Name: LATONYA ELDER Rep #: [id number] : 1970 54 From: Jasbir Curry DO PCP: Dr. Beka Bowie MD Status:REG ER Location: ED HPI History of Present Illness Chief Complaint: Chest Pain Narrative Narrative: Patient is a 54-year-old male with past medical history of COPD, CHF, CAD, hypertension, diabetes who presented to the emergency department with a complaint of chest pain, shortness of breath, brain fog, slurred speech since Sunday. According to the patient and significant other and has been off and on for the last several days. They state that since things were not getting better they decided come here for further evaluation management. Patient denies any recent sick contacts. He states that he has been using his inhalers and other medications as prescribed [facility] Medical History History of DVT (deep vein thrombosis) Respiratory insufficiency Elevated troponin Acute bronchitis COPD exacerbation Congestive heart failure Acute sinusitis, unspecified Left shoulder pain Insulin dependent diabetes mellitus Coronary artery disease Essential hypertension Cluster headache Migraine Headache Diabetes Obesity Community acquired pneumonia Smoker Asthma Myocardial infarct Ischemic cardiomyopathy Obesity (BMI 30.0-34.9) Chronic obstructive pulmonary disease (COPD) Nicotine dependence COPD (chronic obstructive pulmonary disease) Hyperlipidemia History of non-ST elevation myocardial infarction (NSTEMI) (11/22/20) Atherosclerosis of [place] coronary artery of [place] heart without angina pectoris Non-ST elevation NE (NSTEMI) Home Medications ???Medication ???Instructions ???Recorded ???Last Taken ???Type aspirin 81 mg chewable tablet 81 mg PO DAILY heart health 02/10/25 History loratadine 10 mg tablet 10 mg PO DAILY PRN allergies 06/26 Unknown History amlodipine 10 mg tablet 10 mg PO DAILY blood pressure #90 06/25/23 02/10/25 Rx tabs lisinopril 20 mg tablet 20 mg PO BID blood pressure #180 0 11/26/23 Unknown Rx tabs atorvastatin 80 mg tablet 80 mg PO QHS cholesterol #90 tabs 12/28/23 02/09/25 Rx insulin degludec 200 unit/mL (3 50 unit (0.25 mL) subcut QHS blood 12/28/23 02/09/25 Rx mL) subcutaneous pen (Tresiba sugar 3 months #22.5 mL FlexTouch U-200 insulin) ranolazine 1,000 mg 1,000 mg PO BID heart #60 tabs 02/10/25 Rx tablet,extended release,12 hr clopidogrel 75 mg tablet (Plavix) 75 mg PO DAILY anti platelet #90 01/15/24 02/10/25 Rx tabs isosorbide mononitrate 60 mg 60 mg PO BID heart #180 TABLETS 02/10/25 Rx tablet,extended release 24 hr nitroglycerin 0.4 mg sublingual 0.4 mg sublingual Q5-15M chest 02/0902/08/25 Rx tablet pain #25 tabs albuterol sulfate 90 mcg/actuation 2 puff inhalation 4X/DAY PRN Unknown Rx aerosol inhaler Shortness Of Breath #8.5 grams potassium chloride 20 mEq 20 meq PO BIDCM #60 tabs 10/13/24 Unknown Rx tablet,extended release(part/cryst) carved[facility] 25 mg [facility] 1 12/28/23 02/10/25 Rx tabs clonidine HCl 0.1 mg tablet 0.1 mg PO BID blood pressure #180 12/15/24 02/10/25 Rx tabs furosemide 20 mg tablet (Lasix) 60 mg (3 x 20 mg) PO DAILY #270 02/10/25 Rx tabs guaifenesin 1,200 mg tablet, 600 mg PO BID 02/10/25 02/10/25 Hi story extended release 12 hr (Mucus Relief ER) insulin lispro 100 unit/mL 20 unit subcut TIDAC PRN DIABETES 02/10/25 02/10/25 History subcutaneous pen (Humalog KwikPen (U-100) Insulin) Allergy/AdvReac Type Severity Reaction Status Date / Time amoxicillin trihydrate (From Allergy Rash Verified 02/10/25 17:57 Augmentin) potassium clavulanate (From Allergy Rash Verified 02/10/25 17:57 Augmentin) ticagrelor (From Brilinta) Allergy Shortness Verified 02/10/25 17:57 of breath codeine AdvReac Nausea Verified 02/10/25 17:57 Family History Sister Myocardial infarction, Onset Age: 41 Diabetes Mother COPD (chronic obstructive pulmonary disease) Asthma Rheumatoid arthritis CVA (cerebral vascular accident) Hypertension Grandmother Diabetes Surgical History History of coronary artery stent placement (12/25/23) History of hernia repair (2008) History of umbilical hernia repair (1971) History of neck surgery History of appendectomy Social History household members: spouse housing: house Smoking Status: Current every (more content not included)... Normal [facility] Eosinophil percentageOrdered By: Jasbir Curry on 02-10-2025 Eosinophils/100 WBC (Bld) 2.4 % 0-[address] [facility] Erythrocyte distribution wid th ratioOrdered By: Jasbir Curry on 02-10-2025 Erythrocyte distribution width (RBC) [Ratio] 13.9 % 11.6-14.[address] [facility] Erythrocyte distribution wid th standard deviationOrdered By: Jasbir Curry on 02-10-2025 Erythrocyte distribution width (RBC) [Entitic vol] 42.5 fL 35.1-43.[address] [facility] Estimation of creatinine lauren aranceOrdered By: Jasbir Curry on 02-10-2025 Estimated Creatinine Clearance Calc 93.49 ml/min 50-[address] [facility] GFR/1.73 sq M.predicted zachery g non-blacks MDRD (S/P/Bld) [Vol rate/Area]Ordered By: Jasbir Curry on 02-10-2025 Estimated GFR (MDRD) Non-Af Amer 81 >[address] [facility] Comment on above: mL/min/1.73m2 CKD-EP I Creatinine Equation (2020) [facility] deOrdered By: Jasbir Curry on 02-10-2025 Bedside Glucose (Misc Panel) 234 mg/dL High 74-[address] [facility] Comment on above: MANAGEMENT OF PATIEN T CARE PER NURSING PROTOCOL H AND P Exam - Hospitaliston 02-10-2025 H&P Exam - Hospitalist [facility] Medical Records Department [address] [place] [address] H P Exam - Hospitalist 02/10/25 2311 MR#: [id number] Acct: [id number] Name: LATONYA ELDER Rep #: [id number] : 1970 54 From: Mitchell Deras DO PCP: Dr. Beka Bowie MD Status:ADM IN Location: ICU [id number] HPI - General General Date of Admission: 02/11/25 Date of Service: 02/10/25 Chief Complaint: Slurred Speech, Brain Fog, Chest Pain and Cough. HPI Narrative LATONYA ELDER, is a 54 M with a past medical history of essential hypertension; on carvedilol, amlodipine, lisinopril and clonidine, hyperlipidemia; on high-dose atorvastatin, obesity; with BMI of 36.3 this admission, IDDM; of unknown control on degludec and humalog TID, history of HONK, history of tobacco abuse (quit 09/2024); with subsequent asthma/COPD, CAD; s/p stent (2003) and NSTEMI (2016, 2018 2020) on BASA and Plavix, Ischemic Cardiomyopathy; with chronic chest pain on ranolazine, ISMO and prn NTG, history of CHF; with peripheral edema, history of bilateral LE DVT's; previously on apixaban, history of sepsis, history of appendectomy, history of hernia; s/p repair (2008), remote history of umbilical hernia repair (1971), history of migraine cluster headaches, history of sinusitis, history of vitamin D deficiency, history of thrush, seasonal allergies, listed allergy to Augmentin (rash), listed allergy to ticagrelor (SOB), listed allergy to codeine (nausea), OA; with chronic Left shoulder pain and history of neck surgery plus history of admission here from October 12, 2024 to October 13, 2024 for treatment of AE COPD with Acute Bronchitis, mild AE CHF with elevated troponin and Respiratory Insufficiency who presents to [facility] ER complaining of who presents to [facility] ER complaining of slurred speech and brain fog since Saturday, February 08, 2025. Mr. Elder and his significant other reported that his symptoms have been zrizpe-tlp-dvxwyc for the past several days and since things were not getting better they decided to come in for further evaluation and treatment. He also admits to intermittent chest discomfort that is pressure-like, heavy, moderate, nonradiating with associated shortness of breath and wheezing with cough productive of increasing yellowish sputum, but he denies chest pain at this time. He denies any recent sick contacts or similar previous episodes plus he states he has been taking his medications as prescribed. He admits to associated headache and lightheadedness with a feeling like he is drifting to the Left but he is able to compensate in addition to mildly dysarthric speech. He denies related fever, chills, nausea, vomiting, diarrhea, constipation, abdominal pain, palpitations, heart racing, dysuria, hematuria, rash or back pain but he does admit to taking 2 Excedrin twice daily routinely. In the ER he was noted to have CTA of the head and neck with IV contrast revealing Large Vessel Occlusion of the A1 segment of the Right anterior cerebral artery with retrograde filling via the anterior communicating artery with small caliber distal Right ARELY with radiologist recommending neuro IR consultation for discussion of endovascular thrombectomy versus anticoagulation and 50% stenosis of the Left carotid artery by NASCET criteria with a corresponding CT of the brain without contrast revealing 1.9 cm x 1.1 cm x 1.3 cm hypodense area seen within the deep white matter along the Right lateral convexity which was new since prior examination with differential possibilities including: Acute/subacute CVA versus intracranial mass with MRI of the brain recommended for further evaluation at this time. He was also noted to have Uncontrolled Hypertension of 186/124 mmHg noted shortly after admission. The ER physician then spoke with [facility], Dr. Barragan, who reviewed the case and recommended giving patient aspirin and Plavix in the place in the ICU overnight for close monitoring with his note going on to state that, if patient decompensates to re-page them and they will reevaluate at that point but she does not feel like this is a chronic large vessel occlusion - even though the radiologist notes this is a new finding with recommendation for neuro IR for thrombectomy, and this patient has no previous history of CVA or similar previous episodes. Patient already took Plavix this morning and therefore an additional dose was not given in the ER. He was also started on antibiotics for suspected Acute Bacterial Bronchitis with mild AE COPD. He was then reluctantly admitted to the ICU for ongoing care for a stay that is expected to extend beyond 2 midnights. [facility] Medical History History of DVT (deep vein thrombosis) Respiratory insufficiency Elevated troponin Acute bronchitis COPD exacerb (more content not included)... Normal [facility] Hematocrit Auto (Bld) [Volum e fraction]Ordered By: Jasbir Curry on 02-10-2025 Hematocrit (Bld) [Volume fraction] 41.1 % 40-[address] [facility] Hemoglobin measurementOrdere d By: Jasbir Curry on 02-10-2025 Hemoglobin (Bld) [Mass/Vol] 13.5 g/dL 13.0-16.[address] [facility] Immature granulocytes/100 WB C Auto (Bld)Ordered By: Jasbir Curry on 02-10-2025 Immature granulocytes/100 WBC (Bld) 0.300 % 0.0-0.[address] [facility] Comment on above: IG% - Immature Granu locytes (promyelocytes, myelocytes and metamyelocytes) > 1% indicates that a LEFT SHIFT is Present. L499.0042on 02-10-2025 Trop T High Sen 24 ng/L High <=[address] [facility] Comment on above: Performed By: #### L 501.4021, L506.0400, L501.9520, L100.0100, L503.7505, L500.2500 #### [facility] Laboratory [address] [place], [address] L499.0043on 02-10-2025 Trop T High Sen Normal <=[address] [facility] Comment on above: Result Comment: [place] ellgardenia via OM: Ordered Performed By: #### L 501.4021, L506.0400, L501.9520, L100.0100, L503.7505, L500.2500 #### [facility] Laboratory [address] [place], [address] L501.4021on 02-10-2025 Trop T High Sen 25 ng/L High <=[address] [facility] Comment on above: Result Comment: Hemo lysis present, Results??could be affected. ?? Performed By: #### L 501.4021, L506.0400, L501.9520, L100.0100, L503.7505, L500.2500 #### [facility] [address] [place], [address] L503.7505on 02-10-2025 Natriuretic peptide B (Bld) [Mass/Vol] 709 pg/mL Normal <=[address] [facility] Comment on above: Result Comment: Hear t Failure Unlikely: < 300 pg/mL Heart Failure Likely < 50 Years: > 450 pg/mL 50-75 Years: > 900 pg/mL >75 Years: > 1800 pg/mL Performed By: #### L 501.4021, L506.0400, L501.9520, L100.0100, L503.7505, L500.2500 #### [facility] [address] [place], [address] Laboratory - Chemistry and C hemistry - challengeOrdered By: Jasbir Curry on 02-10-2025 Natriuretic peptide B (Bld) [Mass/Vol] 709 pg/mL <[address] [facility] Comment on above: Heart Failure Unlike ly: < 300 pg/mLHeart Failure Likely< 50 Years: > 450 pg/mL50-75 Years: > 900 pg/mL>75 Years: > 1800 pg/mL Lactic Acidon 02-10-2025 Lactate [Moles/Vol] 1.9 mmol/L Normal 0.0-2.0 [facility] Comment on above: Order Comment: Y Performed By: #### L 501.4021, L506.0400, L501.9520, L100.0100, L503.7505, L500.2500 #### [facility] [address] [place], [address] Lactic acid measurementOrder ed By: Jasbir Curry on 02-10-2025 Lactate [Moles/Vol] 1.9 mmol/L 0.0-2.0 [facility] Lymphocytes Auto (Unsp spec) [#/Vol]Ordered By: Jasbir Curry on 02-10-2025 Lymphocytes (Bld) [#/Vol] 2.41 10*3/uL 0.83-4.[address] [facility] Lymphocytes/100 WBC Auto (Un sp spec)Ordered By: Jasbir Curry on 02-10-2025 Lymphocytes/100 WBC (Bld) 25.5 % 19-[address] [facility] MCV (mean corpuscular volume ) determinationOrdered By: Jasbir Curry on 02-10-2025 MCV (RBC) [Entitic vol] 83.5 fL 80-94 [facility] Mean corpuscular hemoglobin (MCH) determinationOrdered By: Jasbir Curry on 02-10-2025 MCH (RBC) [Entitic mass] 27.4 pg 27.0-32.[address] [facility] Mean corpuscular hemoglobin concentration (MCHC) determinationOrdered By: Jasbir Curry on 02-10-2025 MCHC (RBC) [Mass/Vol] 32.8 g/dL 32-36 [facility] Mean platelet volume determi nationOrdered By: Jasbir Curry on 02-10-2025 Platelet mean volume (Bld) [Entitic vol] 10.6 fL 6.2-12.[address] [facility] Monocyte percentageOrdered B y: Jasbir Curry on 02-10-2025 Monocytes/100 WBC (Bld) 9.2 % 0-10 [facility] Neutrophil percentageOrdered By: Jasbir Curry on 02-10-2025 Neutrophils/100 WBC (Bld) 61.8 % 47-[address] [facility] No Panel InformationOrdered By: Jasbir Curry on 02-10-2025 Blood Gas Sample Site Not entered [facility] Blood Gas Specimen Type TAMIKA [facility] Oxygen Delivery Device Room Air [facility] Troponin T High Sensitivity 25 ng/L High <[address] [facility] Comment on above: Hemolysis present, R esults could be affected. Nucleated red blood cell per centageOrdered By: Jasbir Curry on 02-10-2025 Nucleated RBC/100 WBC (Bld) [Ratio] 0 % 0-[address] [facility] Oxygen (BldV) [Partial press ure]Ordered By: Jasbir Curry on 02-10-2025 Venous Blood Partial Pressure O2 52 mmHg High 25-[address] [facility] Platelet countOrdered By: Cheng Curry on 02-10-2025 Platelets (Bld) [#/Vol] 317 10*3/uL 150-[address] [facility] Potassium (Unsp spec) [Mass/ Vol]Ordered By: Jasbir Curry on 02-10-2025 Potassium [Moles/Vol] 4.3 mmol/L 3.3-5.1 [facility] Comment on above: Hemolysis present, R esults could be affected. RBC Auto (Bld) [#/Vol]Ordere d By: Jasbir Curry on 02-10-2025 RBC (Bld) [#/Vol] 4.92 10*6/uL 4.6-6.2 [facility] STROKE Brain/Head without Co nton 02-10-2025 STROKE Brain/Head without Cont [facility] Imaging Services [address] [place] [address] STROKE Brain/Head without Cont MR#: [id number] Acct: [id number] Name: JAELLATONYA Matt Rep #: [id number] : 1970 M 54 From: Harvey Hassan i, MD PCP: Dr. Beka Bowie MD Status: REG ER Study: STROKE Brain/Head without Cont Date of Exam: 0 02/10/25 Exam# [id number] Ordering Dr: Jasbir Curry DO EXAM: CT head without contrast. CLINICAL HISTORY: Acute mental status changes. COMPARISON: CT head without contrast dated November 21, 2023. TECHNIQUE: CT head was performed with IV contrast. FINDINGS: 1.9 by 1.1 x 1.3 cm hypodense area seen within the deep white matter along the right lateral convexity. This is new since prior examination. Differential possibility includes, but not limited to acute/subacute infarct versus intracranial mass. Recommend MRI brain for further evaluation at this time. There is no intracranial hemorrhage or midline shift present. The calvarium is intact. Large polyps/mucosal retention cysts within the bilateral maxillary sinuses. CT/STROKE Brain/Head without Cont IMPRESSION: 1.9 by 1.1 x 1.3 cm hypodense area seen within the deep white matter along the right lateral convexity. This is new since prior examination. Differential possibility includes, but not limited to acute/subacute infarct versus intracranial mass. Recommend MRI brain for further evaluation at this time. Red Alert: 1.9 by 1.1 x 1.3 cm hypodense area seen within the deep white matter along the right lateral convexity. This is new since prior examination. Differential possibility includes, but not limited to acute/subacute infarct versus intracranial mass. Recommend MRI brain for further evaluation at this time. The critical information above was relayed directly by me by telephone to Jasbir Curry on 02/10/2025 at 8:00 pm with readback verification. Reading Location: [id number] CC: Dr. Beka Bowie MD; Dr. Jasbir Curry DO Job Coaching: Signed Normal [facility] STROKE CTA Head AND Neck W/C onon 02-10-2025 STROKE CTA Head AND Neck W/Con [facility] Imaging Services [address] [place] [id number] STROKE CTA Head AND Neck W/Con MR#: [id number] Acct: [id number] Name: LATONYA ELDER Rep #: [id number] : 1970 M 54 From: Elsy Das nd, MD PCP: Dr. Beka Bowie MD Status: REG ER Study: STROKE CTA Head AND Neck W/Con Date of Exam: 0 02/10/25 Exam# [id number] Ordering Dr: Jasbir Curry DO PROCEDURE: STROKE CTA HEAD AND NECK W/CON 02/10/2025 REASON FOR EXAM: 54-year-old male, SLURRED SPEECH SINCE SUNDAY TECHNIQUE: CTA imaging of the head and neck from the aortic arch to the skull vertex with intravenous contrast. Coronal and Sagittal reconstruction series were provided. 3D, 3D post processing, 3D reconstructions, Maximum intensity projection (MIPs) Volume rendering and Shaded surface rendering was provided. CONTRAST: Isovue-300 VOLUME: 100ML One or more dose reduction techniques were used (e.g., Automated exposure control, adjustment of the mA and/or kV according to patient size, use of iterative reconstruction technique). RADIATION DOSE SUMMARY: CTDlvol: 100 mGy DLP: 1700 mGycm COMPARISON: Same-day CT head FINDINGS: See same day CT head for discussion of nonvascular findings. Visualization is slightly limited by motion artifact. Standard branching pattern of the aortic arch branch vessels, which are widely patent. Widely patent bilateral vertebral arteries. Calcific plaque of the left carotid bulb resulting in approximately 50% stenosis by NASCET criteria. The right common carotid and internal carotid arteries are patent without focal narrowing by NASCET criteria. No aneurysm or arteriovenous malformation. Non-opacification of the A1 segment of the right anterior cerebral artery. There is retrograde filling of the A2 segment of the right anterior cerebral artery via the patent anterior communicating artery, however the distal right ARELY is of small caliber. There is origin of the right SET UP PERSON. The middle and posterior cerebral arteries are widely patent. Major venous structures: Unremarkable. Other findings: Cervical ACDF hardware. Cervical spondylosis. CT/STROKE CTA Head AND Neck W/Con IMPRESSION: 1. 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 Small caliber distal right ARELY. Consider neuro IR consultation and/or neurology consult for discussion of endovascular thrombectomy versus anticoagulation. 2. Approximately 50% stenosis of the left carotid artery by NASCET criteria. Dr. Thompson discussed these findings via telephone with Dr. Curry at 8:50 pm on 02/10/25. Reading Location: [facility] CC: Dr. Beka Bowie MD; Dr. Jasbir Curry, Job Coaching: Signed Normal [facility] Serum creatinine measurement (mass/volume)Ordered By: Jasbir Curry on 02-10-2025 Creatinine [Mass/Vol] 1.09 mg/dL 0.70-1.20 [facility] Serum glucose measurement (m ass/volume)Ordered By: Jasbir Curry on 02-10-2025 Glucose [Mass/Vol] 255 mg/dL High 70-99 [facility] Serum or plasma calcium jessica urement (mass/volume)Ordered By: Jasbir Curry on 02-10-2025 Calcium [Mass/Vol] 9.1 mg/dL 7.6-11.0 [facility] Serum or plasma urea nitroge n measurement (mass/volume)Ordered By: Jasbir Curry on 02-10-2025 Urea nitrogen [Mass/Vol] 24 mg/dL High 4-[address] [facility] Sodium levelOrdered By: Trey Curry on 02-10-2025 Sodium [Moles/Vol] 137 mmol/L 133-145 [facility] T4 Free Directon 02-10-2025 T4 FREE DIRECT 1.20 ng/dL Normal 0.76-1.[address] [facility] Comment on above: Performed By: #### L 501.4021, L506.0400, L501.9520, L100.0100, L503.7505, L500.2500 #### [facility] [address] [place], [address] T4 freeOrdered By: Jasbir jennings on 02-10-2025 Free T4 [Mass/Vol] 1.20 ng/dL 0.76-1.46 [facility] TSH DL <= 0.005 mIU/L QnOrde red By: Jasbir Curry on 02-10-2025 Thyroid Stimulating Hormone (TSH) 3.160 uIU/mL 0.300-4.[address] [facility] Thyroid Stim Hormone (TSH)on 02-10-2025 TSH 3.160 uIU/mL Normal 0.300-4.[address] [facility] Comment on above: Performed By: #### L 501.4021, L506.0400, L501.9520, L100.0100, L503.7505, L500.2500 #### [facility] [address] [place], [address] Troponin T.cardiac High sens itivity method [Mass/Vol]Ordered By: Jasbir Curry on 02-10-2025 Troponin T High Sensitivity 2 Hour 24 ng/L High <[address] [facility] Venous Blood Gason Blood Gas Type TAMIKA Normal [facility] Comment on above: Performed By: #### L 501.4021, L506.0400, L501.9520, L100.0100, L503.7505, L500.2500 #### [facility] [address] [place], [address] CO2 [Moles/Vol] 30 mmol/L Normal 23-[address] [facility] Comment on above: Performed By: #### L 501.4021, L506.0400, L501.9520, L100.0100, L503.7505, L500.2500 #### [facility] [address] [place], [address] HCO3 (Bld) [Moles/Vol] 28 mmol/L High 22-26 [facility] Comment on above: Performed By: #### L 501.4021, L506.0400, L501.9520, L100.0100, L503.7505, L500.2500 #### [facility] [address] [place], [address] O2 Delivery Dev Room Air Normal [facility] Comment on above: Performed By: #### L 501.4021, L506.0400, L501.9520, L100.0100, L503.7505, L500.2500 #### [facility] [address] [place], [address] SITE Not entered Normal [facility] Comment on above: Performed By: #### L 501.4021, L506.0400, L501.9520, L100.0100, L503.7505, L500.2500 #### [facility] [address] [place], [address] VBG BE 3 mmol/L Normal -1.0-3.[address] [facility] Comment on above: Performed By: #### L 501.4021, L506.0400, L501.9520, L100.0100, L503.7505, L500.2500 #### [facility] [address] [place], [address] VBG pCO2 47.6 mmHg Normal 41-[address] [facility] Comment on above: Performed By: #### L 501.4021, L506.0400, L501.9520, L100.0100, L503.7505, L500.2500 #### [facility] [address] [place], [address] VBG pH 7.38 Normal 7.32-7.[address] [facility] Comment on above: Performed By: #### L 501.4021, L506.0400, L501.9520, L100.0100, L503.7505, L500.2500 #### [facility] [address] [place], [address] VBG PO2 52 mmHg High 25-[address] [facility] Comment on above: Performed By: #### L 501.4021, L506.0400, L501.9520, L100.0100, L503.7505, L500.2500 #### [facility] [address] [place], [address] VBG SO2 85 High 50-[address] [facility] Comment on above: Performed By: #### L 501.4021, L506.0400, L501.9520, L100.0100, L503.7505, L500.2500 #### [facility] [address] [place], [address] Venous blood bicarbonate adria surementOrdered By: Jasbir Curry on 02-10-2025 HCO3 (Bld) [Moles/Vol] 28 mmol/L High 22-26 [facility] Venous blood oxygen saturati on measurementOrdered By: Jasbir Curry on 02-10-2025 Oxygen saturation in Blood 85 % High 50-[address] [facility] White blood cell (WBC) count Ordered By: Jasbir Curry on 02-10-2025 WBC (Bld) [#/Vol] 9.4 10*3/uL 4.4-11.0 [facility] pH (BldV)Ordered By: Jasbir thomas on 02-10-2025 Venous Blood pH 7.38 7.32-7.[address] [facility] Vitamin D 1,25-Dihydroxyon 1 12-14-2023 VIT D 1,25 DIHY 45.5 pg/mL Normal 24.8-81.[address] [facility] Comment on above: Result Comment: Perf ormed at: [facility] [id number] Corporate Wellness Coordinator: Saundra Anderson MD, Phone: [phone] Performed By: #### L 501.4021, L506.0400, L501.9520, L100.0100, L503.7505, L500.2500 #### [facility] [address] [place], [address] Basic Metabolic Profile (BMP )on 10-13-2024 BUN/CRE 32.6 RATIO High 10-[address] [facility] Comment on above: Performed By: #### L 501.4021, L506.0400, L501.9520, L100.0100, L503.7505, L500.2500 #### [facility] [address] [place], [address] CA,Total 8.9 mg/dL Normal 8.5-10.[address] [facility] Comment on above: Performed By: #### L 501.4021, L506.0400, L501.9520, L100.0100, L503.7505, L500.2500 #### [facility] [address] [place], [address] Chloride [Moles/Vol] 105 mmol/L Normal 98-107 [facility] Comment on above: Performed By: #### L 501.4021, L506.0400, L501.9520, L100.0100, L503.7505, L500.2500 #### [facility] [address] [place], [address] CO2 [Moles/Vol] 26.0 mmol/L Normal 21.0-32.[address] [facility] Comment on above: Performed By: #### L 501.4021, L506.0400, L501.9520, L100.0100, L503.7505, L500.2500 #### [facility] [address] [place], [address] Creatinine [Mass/Vol] 1.32 mg/dL High 0.70-1.30 [facility] Comment on above: Result Comment: The validity of the calculated GFR GFRAA in patients over 70 years has not been determined. Clinical correlation is essential. Performed By: #### L 501.4021, L506.0400, L501.9520, L100.0100, L503.7505, L500.2500 #### [facility] [address] [place], [address] ECRCL 78.14 ml/min Normal [facility] Comment on above: Performed By: #### L 501.4021, L506.0400, L501.9520, L100.0100, L503.7505, L500.2500 #### [facility] [address] [place], [address] EST GFR - AA 73 mL/min Normal >[address] [facility] Comment on above: Result Comment: Afri can Ivorian GFR Calc Performed By: #### L 501.4021, L506.0400, L501.9520, L100.0100, L503.7505, L500.2500 #### [facility] [address] [place], [address] GAP 4 Low 5-[address] [facility] Comment on above: Performed By: #### L 501.4021, L506.0400, L501.9520, L100.0100, L503.7505, L500.2500 #### [facility] [address] [place], [address] GFR/1.73 sq M.predicted among non-blacks MDRD (S/P/Bld) [Vol rate/Area] 60 mL/min/{1.73_m2} Normal >[address] [facility] Comment on above: Result Comment: Non- GFR Calc Performed By: #### L 501.4021, L506.0400, L501.9520, L100.0100, L503.7505, L500.2500 #### [facility] [address] [place], [address] Glucose [Mass/Vol] 271 mg/dL High 74-106 [facility] Comment on above: Result Comment: Gluc ose result greater than or equal to 200 mg/dL suggests DIABETES MELLITUS per A.D.A. criteria. Performed By: #### L 501.4021, L506.0400, L501.9520, L100.0100, L503.7505, L500.2500 #### [facility] [address] [place], [address] Potassium [Moles/Vol] 4.6 mmol/L Normal 3.5-5.1 [facility] Comment on above: Result Comment: Slig ht Hemolysis, Result may be falsely increased. Performed By: #### L 501.4021, L506.0400, L501.9520, L100.0100, L503.7505, L500.2500 #### [facility] [address] [place], [address] Sodium [Moles/Vol] 135 mmol/L Low 136-145 [facility] Comment on above: Performed By: #### L 501.4021, L506.0400, L501.9520, L100.0100, L503.7505, L500.2500 #### [facility] [address] [place], [address] Urea nitrogen [Mass/Vol] 43 mg/dL High 7-[address] [facility] Comment on above: Performed By: #### L 501.4021, L506.0400, L501.9520, L100.0100, L503.7505, L500.2500 #### [facility] [address] [place], [address] Bedside Glucoseon 10-13-2024 FINGERSTICK GLU 370 mg/dL High 74-[address] [facility] Comment on above: Result Comment: CARLOS GEMENT OF PATIENT CARE PER NURSING PROTOCOL Performed By: #### L 501.4021, L506.0400, L501.9520, L100.0100, L503.7505, L500.2500 #### [facility] [address] [place], [address] FINGERSTICK GLU 262 mg/dL High 74-[address] [facility] Comment on above: Result Comment: CARLOS GEMENT OF PATIENT CARE PER NURSING PROTOCOL Performed By: #### L 501.4021, L506.0400, L501.9520, L100.0100, L503.7505, L500.2500 #### [facility] [address] [place], [address] CBC W/Diff, Automatedon 11-2 5-2023 Absolute Lymph 1.69 X10 3/uL Normal 0.83-4.[address] [facility] Comment on above: Performed By: #### L 501.4021, L506.0400, L501.9520, L100.0100, L503.7505, L500.2500 #### [facility] [address] [place], [address] Absolute Neut 17.9 X10 3/uL High 2.0-7.[address] [facility] Comment on above: Performed By: #### L 501.4021, L506.0400, L501.9520, L100.0100, L503.7505, L500.2500 #### [facility] [address] [place], [address] Basophils/100 WBC (Bld) 0.1 % Normal 0-1 [facility] Comment on above: Performed By: #### L 501.4021, L506.0400, L501.9520, L100.0100, L503.7505, L500.2500 #### [facility] [address] [place], [address] Eosinophils/100 WBC (Bld) 0.0 % Normal 0-[address] [facility] Comment on above: Performed By: #### L 501.4021, L506.0400, L501.9520, L100.0100, L503.7505, L500.2500 #### [facility] [address] [place], [address] Erythrocyte distribution width (RBC) [Ratio] 13.2 % Normal 11.6-14.[address] [facility] Comment on above: Performed By: #### L 501.4021, L506.0400, L501.9520, L100.0100, L503.7505, L500.2500 #### [facility] [address] [place], [address] Hematocrit (Bld) [Volume fraction] 40.8 % Normal 40-[address] [facility] Comment on above: Performed By: #### L 501.4021, L506.0400, L501.9520, L100.0100, L503.7505, L500.2500 #### [facility] [address] [place], [address] Hemoglobin (Bld) [Mass/Vol] 12.9 g/dL Low 13.0-16.[address] [facility] Comment on above: Performed By: #### L 501.4021, L506.0400, L501.9520, L100.0100, L503.7505, L500.2500 #### [facility] [address] [place], [address] IG% 1.000 High 0.0-0.[address] [facility] Comment on above: Result Comment: IG% - Immature Granulocytes (promyelocytes, myelocytes and metamyelocytes) > 1% indicates that a LEFT SHIFT is Present. Performed By: #### L 501.4021, L506.0400, L501.9520, L100.0100, L503.7505, L500.2500 #### [facility] [address] [place], [address] Lymphocytes/100 WBC (Bld) 8.3 % Low 19-[address] [facility] Comment on above: Performed By: #### L 501.4021, L506.0400, L501.9520, L100.0100, L503.7505, L500.2500 #### [facility] [address] [place], [address] MCH (RBC) [Entitic mass] 27.7 pg Normal 27.0-32.[address] [facility] Comment on above: Performed By: #### L 501.4021, L506.0400, L501.9520, L100.0100, L503.7505, L500.2500 #### [facility] [address], [address] MCHC (RBC) [Mass/Vol] 31.6 g/dL Low 32-36 [facility] Comment on above: Performed By: #### L 501.4021, L506.0400, L501.9520, L100.0100, L503.7505, L500.2500 #### [facility] [address] [place], [address] MCV (RBC) [Entitic vol] 87.6 fL Normal 80-94 [facility] Comment on above: Performed By: #### L 501.4021, L506.0400, L501.9520, L100.0100, L503.7505, L500.2500 #### [facility] [address] [place], [address] Monocytes/100 WBC (Bld) 3.0 % Normal 0-10 [facility] Comment on above: Performed By: #### L 501.4021, L506.0400, L501.9520, L100.0100, L503.7505, L500.2500 #### [facility] [address] [place], [address] Neutrophils/100 WBC (Bld) 87.6 % High 47-[address] [facility] Comment on above: Performed By: #### L 501.4021, L506.0400, L501.9520, L100.0100, L503.7505, L500.2500 #### [facility] [address] [place], [address] Nucleated RBC (Bld) [#/Vol] 0 10*3/uL Normal 0-[address] [facility] Comment on above: Performed By: #### L 501.4021, L506.0400, L501.9520, L100.0100, L503.7505, L500.2500 #### [facility] [address] [place], [address] Platelet mean volume (Bld) [Entitic vol] 10.9 fL Normal 6.2-12.[address] [facility] Comment on above: Performed By: #### L 501.4021, L506.0400, L501.9520, L100.0100, L503.7505, L500.2500 #### [facility] [address] [place], [address] Platelets (Bld) [#/Vol] 375 10*3/uL Normal 150-[address] [facility] Comment on above: Performed By: #### L 501.4021, L506.0400, L501.9520, L100.0100, L503.7505, L500.2500 #### [facility] [address] [place], [address] RBC (Bld) [#/Vol] 4.66 10*6/uL Normal 4.6-6.2 [facility] Comment on above: Performed By: #### L 501.4021, L506.0400, L501.9520, L100.0100, L503.7505, L500.2500 #### [facility] [address] [place], [address] RDW SD 42.4 fl Normal 35.1-43.[address] [facility] Comment on above: Performed By: #### L 501.4021, L506.0400, L501.9520, L100.0100, L503.7505, L500.2500 #### [facility] [address] [place], [address] WBC (Bld) [#/Vol] 20.4 10*3/uL High 4.4-11.0 [facility] Comment on above: Performed By: #### L 501.4021, L506.0400, L501.9520, L100.0100, L503.7505, L500.2500 #### [facility] [address] [place], [address] Discharge Instructionon 09-[address] [facility] [address] [place] [address] Instructions for Home/Discharge Instructions 10/13/24 1303 MR#: [id number] Acct: [id number] Name: LATONYA ELDER Rep #: [id number] : 1970 54 From: Manuelito Green DO PCP: Dr. Beka Bowie MD Status:ADM IN Discharge Instructions Diet Discharge Diet: 1800 Calorie Control Diet DC O2, CPAP, BIPAP needs RN Home O2 Qualification: Home O2 Qualification: Is the patient on home oxygen No 10/13/24 10:00 Home O2 Qualification: AT REST 1- Pulse Ox at rest 91 10/13/24 10:00 Home O2 Qualification: WITH AMBULATION 1- Pulse Ox with ambulation 89 10/13/24 10:00 1- Oxygen Flow Rate with 0 10/13/24 10:00 ambulation Additional Home O2 Discharge instructions: No Dressing / Incision Discharge Activity: Return to Normal Activity Return to work on:: 10/15/24 Weight Bearing Status: Full weight bearing Follow Up Care Test Results: Test results from this visit will be discussed in further detail at your follow-up appointment, if applicable. Discharge Plan Admission Admit Date/Time: 10/11/24 00:34 Primary Reason for Your Visit: COPD exacerbation, acute on chronic congestive heart failure Attending Provider: Manuelito Green Primary Care Provider: Beka Bowie Consulting Providers: Mitchell Deras; Nasim Leblanc Instructions Forms: Work / School Excuse Discharge Orders/Prescription s Prescriptions: New nicotine 14 mg/24 hr Patch 24 Hour 14 mg transdermal DAILY Qty: 30 0RF potassium chloride 20 mEq Tablet,Er Particles/Crystals 20 meq PO BIDCM Qty: 60 0RF doxycycline monohydrate 100 mg Capsule 100 mg PO BID Qty: 10 0RF insulin lispro [Humalog KwikPen Insulin] 100 unit/mL Insulin Pen 20 unit subcut TIDAC Qty: 0 0RF guaifenesin [Mucus Relief ER] 1,200 mg Tablet Extended Release 12hr 1,200 mg PO BID Qty: 14 0RF furosemide [Lasix] 20 mg tablet 60 mg PO DAILY Qty: 90 0RF prednisone 20 mg tablet 20 mg PO BID Qty: 11 0RF Rx Instructions: 1 twice a day for 3 days, then 1 daily for 3 days, then one half daily for 4 days then stop benzonatate 200 mg capsule 200 mg PO TID PRN (Reason: cough) Qty: 15 0RF Continued atorvastatin 80 mg tablet 80 mg PO QHS Qty: 90 1RF insulin degludec [Tresiba FlexTouch U-200] 200 unit/mL (3 mL) insulin pen 50 unit SUBCUT QHS 90 Days Qty: 22.5 1RF clopidogrel [Plavix] 75 mg tablet 75 mg PO DAILY Qty: 90 3RF isosorbide mononitrate 60 mg tablet extended release 24 hr 60 mg PO BID Qty: 180 3RF aspirin 81 MG tablet,chewable 81 mg PO DAILY loratadine 10 mg tablet 10 mg PO DAILY PRN (Reason: allergies) albuterol sulfate [Ventolin HFA] 90 mcg/actuation HFA aerosol inhaler 2 puff inhalation Q4H PRN PRN (Reason: Wheezing) Qty: 1 0RF Eliquis 5 mg tablet 5 mg PO BID Qty: 74 0RF Rx Instructions: 10 mg twice a day for the first week. Then 5 mg twice a day. carvedilol 25 mg tablet 25 mg PO BIDCM Qty: 180 3RF clonidine HCl 0.1 mg tablet 0.1 mg PO BID Qty: 180 3RF amlodipine 10 mg tablet 10 mg PO DAILY Qty: 90 3RF ranolazine 1,000 mg tablet extended release 12 hr 1,000 mg PO BID Qty: 60 11RF nitroglycerin 0.4 mg tablet, sublingual 0.4 mg sublingual Q5-15M Qty: 25 3RF albuterol sulfate 90 mcg/actuation HFA aerosol inhaler 2 puff INHALATION 4X/DAY PRN (Reason: Shortness Of Breath) Qty: 8.5 0RF Discontinued levofloxacin 750 mg tablet 750 mg PO DAILY Qty: 7 0RF Humalog KwikPen Insulin 200 unit/mL (3 mL) insulin pen 14 unit subcut TIDCM Rx Instructions: inject 14 units subcutaneously three times a day (SEE PROTOCOL) No Action lisinopril 20 mg tablet 20 mg PO BID Qty: 180 3RF Referrals / Follow Up: Mal Mcdonnell PA [Med Staff - [facility] Practice Prof] - 10/29/24 10:30 am 10/13/24 1332 Manuelito Green DO CC: Dr. Mitchell Deras DO; Dr. Beka Bowie MD; Dr. Nasim Leblanc MD Signed Normal [facility] Respiratory Cultureon 2023 RESPC SENT LABEL TO PCU FOR COLLECTION Mixed normal respiratory katya. No Haemophilus, Streptococcus pneumoniae, beta-hemolytic Streptococcus or Staphylococcus aureus isolated. [facility] Comment on above: Performed By: #### L 503.6005, L300.3900, L501.5425, L100.0100, L500.2500, L300.4310, L503.6620 #### [facility] [address], [address] 12 Lead EKGon 10-12-2024 12 Lead EKG [facility] Cardiovascular Services [address] [place] [address] 12 Lead EKG 10/12/24 1446 MR#: [id number] Acct: [id number] Name: LATONYA ELDER Rep #: [id number] : 1970 54 From: Harvey Murphy MD Attending Dr: Dr. Manuelito Green DO Status: A DM IN Ordering Dr: Nasim Leblanc MD Date: 10/12/24 Location: [facility] Sex: M C Admitted: 10/11/24 Test Reason : RHYTHM CHG Blood Pressure : */* mmHG Vent. Rate : 81 BPM Atrial Rate : 81 BPM P-R Int : 164 ms QRS Dur : 112 ms QT Int : 406 ms P-R-T Axes : 57 37 70 degrees QTcB Int : 471 ms Normal sinus rhythm Possible Left atrial enlargement Anterior infarct , age undetermined Abnormal ECG When compared with ECG of 10-Oct-2024 19:58, MANUAL COMPARISON REQUIRED DATA IS UNCONFIRMED Confirmed by Harvey Murphy ([id number]), senior technical editor EVELIO CURRY ([id number]) on 10/13/2024 9:57:29 AM Referred By: Confirmed By: Harvey Murphy 10/13/24 0957 Date Harvey Murphy MD CC: Dr. Beka Bowie MD; Dr. Manuelito Green DO; Dr. Nasim Leblanc MD Signed Normal [facility] BNP,B-Type NATRIURETIC PEPTI [place]ow 10-12-2024 Natriuretic peptide B (Bld) [Mass/Vol] 148.6 pg/mL High 0-[address] [facility] Comment on above: Performed By: #### L 501.4021, L506.0400, L501.9520, L100.0100, L503.7505, L500.2500 #### [facility] [address] [place], [address] Bedside Glucoseon 10-12-2024 FINGERSTICK GLU 197 mg/dL High 74-[address] [facility] Comment on above: Result Comment: CARLOS GEMENT OF PATIENT CARE PER NURSING PROTOCOL Performed By: #### L 501.4021, L506.0400, L501.9520, L100.0100, L503.7505, L500.2500 #### [facility] [address] [place], [address] FINGERSTICK GLU 79 mg/dL Normal 74-[address] [facility] Comment on above: Result Comment: CARLOS GEMENT OF PATIENT CARE PER NURSING PROTOCOL Performed By: #### L 501.4021, L506.0400, L501.9520, L100.0100, L503.7505, L500.2500 #### [facility] [address] [place], [address] FINGERSTICK GLU 229 mg/dL High 74-[address] [facility] Comment on above: Result Comment: CARLOS GEMENT OF PATIENT CARE PER NURSING PROTOCOL Performed By: #### L 501.4021, L506.0400, L501.9520, L100.0100, L503.7505, L500.2500 #### [facility] [address] [place], [address] FINGERSTICK GLU 338 mg/dL High 74-[address] [facility] Comment on above: Result Comment: CARLOS GEMENT OF PATIENT CARE PER NURSING PROTOCOL Performed By: #### L 501.4021, L506.0400, L501.9520, L100.0100, L503.7505, L500.2500 #### [facility] [address] [place], [address] FINGERSTICK GLU 448 mg/dL High 74-[address] [facility] Comment on above: Result Comment: CARLOS GEMENT OF PATIENT CARE PER NURSING PROTOCOL Performed By: #### L 501.4021, L506.0400, L501.9520, L100.0100, L503.7505, L500.2500 #### [facility] [address] [place], [address] FINGERSTICK GLU 342 mg/dL High 74-[address] [facility] Comment on above: Result Comment: CARLOS GEMENT OF PATIENT CARE PER NURSING PROTOCOL Performed By: #### L 501.4021, L506.0400, L501.9520, L100.0100, L503.7505, L500.2500 #### [facility] [address] [place], [address] CBC W/Diff, Automatedon 09-20 Absolute Lymph 1.49 X10 3/uL Normal 0.83-4.[address] [facility] Comment on above: Performed By: #### L 501.4021, L506.0400, L501.9520, L100.0100, L503.7505, L500.2500 #### [facility] [address] [place], [address] Absolute Neut 12.0 X10 3/uL High 2.0-7.[address] [facility] Comment on above: Performed By: #### L 501.4021, L506.0400, L501.9520, L100.0100, L503.7505, L500.2500 #### [facility] [address] [place], [address] Basophils/100 WBC (Bld) 0.0 % Normal 0-1 [facility] Comment on above: Performed By: #### L 501.4021, L506.0400, L501.9520, L100.0100, L503.7505, L500.2500 #### [facility] [address] [place], [address] Eosinophils/100 WBC (Bld) 0.0 % Normal 0-[address] [facility] Comment on above: Performed By: #### L 501.4021, L506.0400, L501.9520, L100.0100, L503.7505, L500.2500 #### [facility] [address] [place], [address] Erythrocyte distribution width (RBC) [Ratio] 13.0 % Normal 11.6-14.[address] [facility] Comment on above: Performed By: #### L 501.4021, L506.0400, L501.9520, L100.0100, L503.7505, L500.2500 #### [facility] [address] [place], [address] Hematocrit (Bld) [Volume fraction] 40.3 % Normal 40-[address] [facility] Comment on above: Performed By: #### L 501.4021, L506.0400, L501.9520, L100.0100, L503.7505, L500.2500 #### [facility] [address] [place], [address] Hemoglobin (Bld) [Mass/Vol] 12.9 g/dL Low 13.0-16.[address] [facility] Comment on above: Performed By: #### L 501.4021, L506.0400, L501.9520, L100.0100, L503.7505, L500.2500 #### [facility] [address] [place], [address] IG% 0.900 Normal 0.0-0.[address] [facility] Comment on above: Result Comment: IG% - Immature Granulocytes (promyelocytes, myelocytes and metamyelocytes) > 1% indicates that a LEFT SHIFT is Present. Performed By: #### L 501.4021, L506.0400, L501.9520, L100.0100, L503.7505, L500.2500 #### [facility] [address] [place], [address] Lymphocytes/100 WBC (Bld) 10.6 % Low 19-[address] [facility] Comment on above: Performed By: #### L 501.4021, L506.0400, L501.9520, L100.0100, L503.7505, L500.2500 #### [facility] [address] [place], [address] MCH (RBC) [Entitic mass] 27.6 pg Normal 27.0-32.[address] [facility] Comment on above: Performed By: #### L 501.4021, L506.0400, L501.9520, L100.0100, L503.7505, L500.2500 #### [facility] [address] [place], [address] MCHC (RBC) [Mass/Vol] 32.0 g/dL Normal 32-36 [facility] Comment on above: Performed By: #### L 501.4021, L506.0400, L501.9520, L100.0100, L503.7505, L500.2500 #### [facility] [address] [place], [address] MCV (RBC) [Entitic vol] 86.1 fL Normal 80-94 [facility] Comment on above: Performed By: #### L 501.4021, L506.0400, L501.9520, L100.0100, L503.7505, L500.2500 #### [facility] [address] [place], [address] Monocytes/100 WBC (Bld) 3.6 % Normal 0-10 [facility] Comment on above: Performed By: #### L 501.4021, L506.0400, L501.9520, L100.0100, L503.7505, L500.2500 #### [facility] [address] [place], [address] Neutrophils/100 WBC (Bld) 84.9 % High 47-[address] [facility] Comment on above: Performed By: #### L 501.4021, L506.0400, L501.9520, L100.0100, L503.7505, L500.2500 #### [facility] [address] [place], [address] Nucleated RBC (Bld) [#/Vol] 0 10*3/uL Normal 0-[address] [facility] Comment on above: Performed By: #### L 501.4021, L506.0400, L501.9520, L100.0100, L503.7505, L500.2500 #### [facility] [address] [place], [address] Platelet mean volume (Bld) [Entitic vol] 11.1 fL Normal 6.2-12.[address] [facility] Comment on above: Performed By: #### L 501.4021, L506.0400, L501.9520, L100.0100, L503.7505, L500.2500 #### [facility] [address] [place], [address] Platelets (Bld) [#/Vol] 378 10*3/uL Normal 150-[address] [facility] Comment on above: Performed By: #### L 501.4021, L506.0400, L501.9520, L100.0100, L503.7505, L500.2500 #### [facility] [address] [place], [address] RBC (Bld) [#/Vol] 4.68 10*6/uL Normal 4.6-6.2 [facility] Comment on above: Performed By: #### L 501.4021, L506.0400, L501.9520, L100.0100, L503.7505, L500.2500 #### [facility] [address] [place], [address] RDW SD 40.6 fl Normal 35.1-43.[address] [facility] Comment on above: Performed By: #### L 501.4021, L506.0400, L501.9520, L100.0100, L503.7505, L500.2500 #### [facility] [address] [place], [address] WBC (Bld) [#/Vol] 14.1 10*3/uL High 4.4-11.0 [facility] Comment on above: Performed By: #### L 501.4021, L506.0400, L501.9520, L100.0100, L503.7505, L500.2500 #### [facility] [address] [place], [address] Comprehensive Metabolic Prof ilon 10-12-2024 Albumin [Mass/Vol] 2.7 g/dL Low 3.2-5.0 [facility] Comment on above: Performed By: #### L 501.4021, L506.0400, L501.9520, L100.0100, L503.7505, L500.2500 #### [facility] [address] [place], [address] Albumin/Globulin [Mass ratio] 0.6 {ratio} Low 0.9-2.[address] [facility] Comment on above: Performed By: #### L 501.4021, L506.0400, L501.9520, L100.0100, L503.7505, L500.2500 #### [facility] [address] [place], [address] ALK P 87 U/L Normal 45-[address] [facility] Comment on above: Performed By: #### L 501.4021, L506.0400, L501.9520, L100.0100, L503.7505, L500.2500 #### [facility] [address] [place], [address] ALT [Catalytic activity/Vol] 20 U/L Normal 16-[address] [facility] Comment on above: Performed By: #### L 501.4021, L506.0400, L501.9520, L100.0100, L503.7505, L500.2500 #### [facility] [address] [place], [address] AST [Catalytic activity/Vol] 7 U/L Low 15-[address] [facility] Comment on above: Performed By: #### L 501.4021, L506.0400, L501.9520, L100.0100, L503.7505, L500.2500 #### [facility] [address] [place], [address] Bilirubin [Mass/Vol] 0.40 mg/dL Normal 0.20-1.00 [facility] Comment on above: Result Comment: For patients on eltrombopag therapy, use of Dimension [place] TBIL is not recommended. Performed By: #### L 501.4021, L506.0400, L501.9520, L100.0100, L503.7505, L500.2500 #### [facility] [address] [place], [address] BUN/CRE 27.0 RATIO High 10-[address] [facility] Comment on above: Performed By: #### L 501.4021, L506.0400, L501.9520, L100.0100, L503.7505, L500.2500 #### [facility] [address] [place], [address] CA,Total 9.2 mg/dL Normal 8.5-10.[address] [facility] Comment on above: Performed By: #### L 501.4021, L506.0400, L501.9520, L100.0100, L503.7505, L500.2500 #### [facility] [address] [place], [address] Chloride [Moles/Vol] 99 mmol/L Normal 98-107 [facility] Comment on above: Performed By: #### L 501.4021, L506.0400, L501.9520, L100.0100, L503.7505, L500.2500 #### [facility] [address] [place], [address] CO2 [Moles/Vol] 25.0 mmol/L Normal 21.0-32.[address] [facility] Comment on above: Performed By: #### L 501.4021, L506.0400, L501.9520, L100.0100, L503.7505, L500.2500 #### [facility] [address] [place], [address] Creatinine [Mass/Vol] 1.26 mg/dL Normal 0.70-1.30 [facility] Comment on above: Result Comment: The validity of the calculated GFR GFRAA in patients over 70 years has not been determined. Clinical correlation is essential. Performed By: #### L 501.4021, L506.0400, L501.9520, L100.0100, L503.7505, L500.2500 #### [facility] [address] [place], [address] ECRCL 80.25 ml/min Normal [facility] Comment on above: Performed By: #### L 501.4021, L506.0400, L501.9520, L100.0100, L503.7505, L500.2500 #### [facility] [address] [place], [address] EST GFR - AA 77 mL/min Normal >[address] [facility] Comment on above: Result Comment: Afri can Ivorian GFR Calc Performed By: #### L 501.4021, L506.0400, L501.9520, L100.0100, L503.7505, L500.2500 #### [facility] [address] [place], [address] GAP 9 Normal 5-[address] [facility] Comment on above: Performed By: #### L 501.4021, L506.0400, L501.9520, L100.0100, L503.7505, L500.2500 #### [facility] [address] [place], [address] GFR/1.73 sq M.predicted among non-blacks MDRD (S/P/Bld) [Vol rate/Area] 64 mL/min/{1.73_m2} Normal >[address] [facility] Comment on above: Result Comment: Non- GFR Calc Performed By: #### L 501.4021, L506.0400, L501.9520, L100.0100, L503.7505, L500.2500 #### [facility] [address] [place], [address] Globulin (S) [Mass/Vol] 4.2 g/dL Normal 2.2-4.2 [facility] Comment on above: Performed By: #### L 501.4021, L506.0400, L501.9520, L100.0100, L503.7505, L500.2500 #### [facility] [address] [place], [address] Glucose [Mass/Vol] 375 mg/dL High 74-106 [facility] Comment on above: Result Comment: Gluc ose result greater than or equal to 200 mg/dL suggests DIABETES MELLITUS per A.D.A. criteria. Performed By: #### L 501.4021, L506.0400, L501.9520, L100.0100, L503.7505, L500.2500 #### [facility] [address] [place], [address] Potassium [Moles/Vol] 4.0 mmol/L Normal 3.5-5.1 [facility] Comment on above: Performed By: #### L 501.4021, L506.0400, L501.9520, L100.0100, L503.7505, L500.2500 #### [facility] [address] [place], [address] Sodium [Moles/Vol] 133 mmol/L Low 136-145 [facility] Comment on above: Performed By: #### L 501.4021, L506.0400, L501.9520, L100.0100, L503.7505, L500.2500 #### [facility] [address] [place], [address] T PROT 6.9 g/dL Normal 6.4-8.[address] [facility] Comment on above: Performed By: #### L 501.4021, L506.0400, L501.9520, L100.0100, L503.7505, L500.2500 #### [facility] [address] [place], [address] Urea nitrogen [Mass/Vol] 34 mg/dL High 7-[address] [facility] Comment on above: Performed By: #### L 501.4021, L506.0400, L501.9520, L100.0100, L503.7505, L500.2500 #### [facility] [address] [place], [address] Magnesiumon 10-12-2024 Magnesium [Mass/Vol] 1.9 mg/dL Normal 1.6-2.6 [facility] Comment on above: Performed By: #### L 501.4021, L506.0400, L501.9520, L100.0100, L503.7505, L500.2500 #### [facility] [address] [place], [address] Phosphoruson 10-12-2024 Phosphate [Mass/Vol] 3.3 mg/dL Normal 2.5-4.9 [facility] Comment on above: Performed By: #### L 501.4021, L506.0400, L501.9520, L100.0100, L503.7505, L500.2500 #### [facility] [address] [place], [address] BNP,B-Type NATRIURETIC PEPTI [place] 10-11-2024 Natriuretic peptide B (Bld) [Mass/Vol] 206.7 pg/mL High 0-[address] [facility] Comment on above: Performed By: #### L 501.4021, L506.0400, L501.9520, L100.0100, L503.7505, L500.2500 #### [facility] [address] [place], [address] Bedside Glucoseon 10-11-2024 FINGERSTICK GLU 268 mg/dL High 74-[address] [facility] Comment on above: Result Comment: CARLOS BONILLA OF PATIENT CARE PER NURSING PROTOCOL Performed By: #### L 501.4021, L506.0400, L501.9520, L100.0100, L503.7505, L500.2500 #### [facility] [address] [place], [address] FINGERSTICK GLU 358 mg/dL High 74-[address] [facility] Comment on above: Result Comment: CARLOS GEMENT OF PATIENT CARE PER NURSING PROTOCOL Performed By: #### L 503.6005, L300.3900, L501.5425, L100.0100, L500.2500, L300.4310, L503.6620 #### [facility] [address] [facility] [address] FINGERSTICK GLU 272 mg/dL High 74-[address] [facility] Comment on above: Result Comment: CARLOS GEMENT OF PATIENT CARE PER NURSING PROTOCOL Performed By: #### L 501.4021, L506.0400, L501.9520, L100.0100, L503.7505, L500.2500 #### [facility] [address] [facility] [address] FINGERSTICK GLU 284 mg/dL High 74-[address] [facility] Comment on above: Result Comment: CARLOS GEMENT OF PATIENT CARE PER NURSING PROTOCOL Performed By: #### L 501.4021, L506.0400, L501.9520, L100.0100, L503.7505, L500.2500 #### [facility] [address] [facility] [address] FINGERSTICK GLU 252 mg/dL High 74-[address] [facility] Comment on above: Result Comment: CARLOS GEMENT OF PATIENT CARE PER NURSING PROTOCOL Performed By: #### L 503.6005, L300.3900, L501.5425, L100.0100, L500.2500, L300.4310, L503.6620 #### [facility] [address] [facility] [address] FINGERSTICK GLU 152 mg/dL High 74-[address] [facility] Comment on above: Result Comment: CARLOS GEMENT OF PATIENT CARE PER NURSING PROTOCOL Performed By: #### L 501.080 #### [facility] [address] [place], [address] CBC W/Diff, Automatedon 11-2 -2023 Absolute Lymph 1.52 X10 3/uL Normal 0.83-4.[address] [facility] Comment on above: Performed By: #### L 501.4021, L506.0400, L501.9520, L100.0100, L503.7505, L500.2500 #### [facility] [address] [place], [address] Absolute Neut 10.1 X10 3/uL High 2.0-7.[address] [facility] Comment on above: Performed By: #### L 501.4021, L506.0400, L501.9520, L100.0100, L503.7505, L500.2500 #### [facility] [address] [place], [address] Basophils/100 WBC (Bld) 0.5 % Normal 0-1 [facility] Comment on above: Performed By: #### L 501.4021, L506.0400, L501.9520, L100.0100, L503.7505, L500.2500 #### [facility] [address] [place], [address] Eosinophils/100 WBC (Bld) 1.1 % Normal 0-[address] [facility] Comment on above: Performed By: #### L 501.4021, L506.0400, L501.9520, L100.0100, L503.7505, L500.2500 #### [facility] [address] [place], [address] Erythrocyte distribution width (RBC) [Ratio] 13.3 % Normal 11.6-14.[address] [facility] Comment on above: Performed By: #### L 501.4021, L506.0400, L501.9520, L100.0100, L503.7505, L500.2500 #### [facility] [address] [place], [address] Hematocrit (Bld) [Volume fraction] 42.6 % Normal 40-[address] [facility] Comment on above: Performed By: #### L 501.4021, L506.0400, L501.9520, L100.0100, L503.7505, L500.2500 #### [facility] [address] [place], [address] Hemoglobin (Bld) [Mass/Vol] 13.2 g/dL Normal 13.0-16.[address] [facility] Comment on above: Performed By: #### L 501.4021, L506.0400, L501.9520, L100.0100, L503.7505, L500.2500 #### [facility] [address] [place], [address] IG% 0.400 Normal 0.0-0.[address] [facility] Comment on above: Result Comment: IG% - Immature Granulocytes (promyelocytes, myelocytes and metamyelocytes) > 1% indicates that a LEFT SHIFT is Present. Performed By: #### L 501.4021, L506.0400, L501.9520, L100.0100, L503.7505, L500.2500 #### [facility] [address] [place], [address] Lymphocytes/100 WBC (Bld) 12.3 % Low 19-[address] [facility] Comment on above: Performed By: #### L 501.4021, L506.0400, L501.9520, L100.0100, L503.7505, L500.2500 #### [facility] [address] [place], [address] MCH (RBC) [Entitic mass] 27.3 pg Normal 27.0-32.[address] [facility] Comment on above: Performed By: #### L 501.4021, L506.0400, L501.9520, L100.0100, L503.7505, L500.2500 #### [facility] [address] [place], [address] MCHC (RBC) [Mass/Vol] 31.0 g/dL Low 32-36 [facility] Comment on above: Performed By: #### L 501.4021, L506.0400, L501.9520, L100.0100, L503.7505, L500.2500 #### [facility] [address] [place], [address] MCV (RBC) [Entitic vol] 88.2 fL Normal 80-94 [facility] Comment on above: Performed By: #### L 501.4021, L506.0400, L501.9520, L100.0100, L503.7505, L500.2500 #### [facility] [address] [place], [address] Monocytes/100 WBC (Bld) 3.9 % Normal 0-10 [facility] Comment on above: Performed By: #### L 501.4021, L506.0400, L501.9520, L100.0100, L503.7505, L500.2500 #### [facility] [address] [place], [address] Neutrophils/100 WBC (Bld) 81.8 % High 47-[address] [facility] Comment on above: Performed By: #### L 501.4021, L506.0400, L501.9520, L100.0100, L503.7505, L500.2500 #### [facility] [address] [place], [address] Nucleated RBC (Bld) [#/Vol] 0 10*3/uL Normal 0-[address] [facility] Comment on above: Performed By: #### L 501.4021, L506.0400, L501.9520, L100.0100, L503.7505, L500.2500 #### [facility] [address] [place], [address] Platelet mean volume (Bld) [Entitic vol] 10.7 fL Normal 6.2-12.[address] [facility] Comment on above: Performed By: #### L 501.4021, L506.0400, L501.9520, L100.0100, L503.7505, L500.2500 #### [facility] [address] [place], [address] Platelets (Bld) [#/Vol] 350 10*3/uL Normal 150-[address] [facility] Comment on above: Performed By: #### L 501.4021, L506.0400, L501.9520, L100.0100, L503.7505, L500.2500 #### [facility] [address] [place], [address] RBC (Bld) [#/Vol] 4.83 10*6/uL Normal 4.6-6.2 [facility] Comment on above: Performed By: #### L 501.4021, L506.0400, L501.9520, L100.0100, L503.7505, L500.2500 #### [facility] [address] [place], [address] RDW SD 43.4 fl Normal 35.1-43.[address] [facility] Comment on above: Performed By: #### L 501.4021, L506.0400, L501.9520, L100.0100, L503.7505, L500.2500 #### [facility] [address] [place], [address] WBC (Bld) [#/Vol] 12.3 10*3/uL High 4.4-11.0 [facility] Comment on above: Performed By: #### L 501.4021, L506.0400, L501.9520, L100.0100, L503.7505, L500.2500 #### [facility] [address] [place], [address] Chest 1 View (Portable)on Chest 1 View (Portable) [facility] Services [address] [place] [address] Chest 1 View (Portable) MR#: [id number] Acct: [id number] Name: LATONYA ELDER Rep #: [id number] : 1970 M 54 From: Danya Torrez PCP: Dr. Beka Bowie MD Status: ADM IN Study: Chest 1 View (Portable) Date of Exam: 10/11/24 Exam# [id number] Ordering Dr: Mitchell Deras DO -[id number] INDICATION: AE CHF EXAMINATION/TECHNIQ UE: X-RAY - XR Chest 1 View COMPARISON: CTA ChestNov 2023 8:04pm FINDINGS: LINES/DEVICES: None. LUNGS: No consolidation, edema or effusion. No pneumothorax. MEDIASTINUM AND CARDIOVASCULAR STRUCTURES: Cardiac silhouette not enlarged. Central airways and mediastinal contour are unremarkable. BONES AND SOFT TISSUES: Unremarkable. RAD/Chest 1 View (Portable) IMPRESSION: No radiographic evidence of acute cardiopulmonary disease. Electronically Signed: Danya Osborn MD at 6:28 EST , CC: Dr. Mitchell Deras DO; Dr. Beka Bowie MD Job Coaching: Signed Normal [facility] Comprehensive Metabolic Prof ilon 10-11-2024 Albumin [Mass/Vol] 3.0 g/dL Low 3.2-5.0 [facility] Comment on above: Performed By: #### L 501.4021, L506.0400, L501.9520, L100.0100, L503.7505, L500.2500 #### [facility] [address] [place], [address] Albumin/Globulin [Mass ratio] 0.7 {ratio} Low 0.9-2.[address] [facility] Comment on above: Performed By: #### L 501.4021, L506.0400, L501.9520, L100.0100, L503.7505, L500.2500 #### [facility] [address] [place], [address] ALK P 93 U/L Normal 45-[address] [facility] Comment on above: Performed By: #### L 501.4021, L506.0400, L501.9520, L100.0100, L503.7505, L500.2500 #### [facility] [address] [place], [address] ALT [Catalytic activity/Vol] 20 U/L Normal 16-[address] [facility] Comment on above: Performed By: #### L 501.4021, L506.0400, L501.9520, L100.0100, L503.7505, L500.2500 #### [facility] [address] [place], [address] AST [Catalytic activity/Vol] 13 U/L Low 15-[address] [facility] Comment on above: Performed By: #### L 501.4021, L506.0400, L501.9520, L100.0100, L503.7505, L500.2500 #### [facility] [address] [place], [address] Bilirubin [Mass/Vol] 0.60 mg/dL Normal 0.20-1.00 [facility] Comment on above: Result Comment: For patients on eltrombopag therapy, use of Dimension [place] TBIL is not recommended. Performed By: #### L 501.4021, L506.0400, L501.9520, L100.0100, L503.7505, L500.2500 #### [facility] [address] [place], [address] BUN/CRE 16.5 RATIO Normal 10-[address] [facility] Comment on above: Performed By: #### L 501.4021, L506.0400, L501.9520, L100.0100, L503.7505, L500.2500 #### [facility] [address] [place], [address] CA,Total 9.0 mg/dL Normal 8.5-10.[address] [facility] Comment on above: Performed By: #### L 501.4021, L506.0400, L501.9520, L100.0100, L503.7505, L500.2500 #### [facility] [address] [place], [address] Chloride [Moles/Vol] 99 mmol/L Normal 98-107 [facility] Comment on above: Performed By: #### L 501.4021, L506.0400, L501.9520, L100.0100, L503.7505, L500.2500 #### [facility] [address] [place], [address] CO2 [Moles/Vol] 28.0 mmol/L Normal 21.0-32.[address] [facility] Comment on above: Performed By: #### L 501.4021, L506.0400, L501.9520, L100.0100, L503.7505, L500.2500 #### [facility] [address] [place], [address] Creatinine [Mass/Vol] 1.39 mg/dL High 0.70-1.30 [facility] Comment on above: Result Comment: The validity of the calculated GFR GFRAA in patients over 70 years has not been determined. Clinical correlation is essential. Performed By: #### L 501.4021, L506.0400, L501.9520, L100.0100, L503.7505, L500.2500 #### [facility] [address] [place], [address] ECRCL 71.00 ml/min Normal [facility] Comment on above: Performed By: #### L 501.4021, L506.0400, L501.9520, L100.0100, L503.7505, L500.2500 #### [facility] [address] [place], [address] EST GFR - AA 69 mL/min Normal >[address] [facility] Comment on above: Result Comment: Afri can Ivorian GFR Calc Performed By: #### L 501.4021, L506.0400, L501.9520, L100.0100, L503.7505, L500.2500 #### [facility] [address] [place], [address] GAP 8 Normal 5-[address] [facility] Comment on above: Performed By: #### L 501.4021, L506.0400, L501.9520, L100.0100, L503.7505, L500.2500 #### [facility] [address] [place], [address] GFR/1.73 sq M.predicted among non-blacks MDRD (S/P/Bld) [Vol rate/Area] 57 mL/min/{1.73_m2} Low >[address] [facility] Comment on above: Result Comment: Non- GFR Calc Performed By: #### L 501.4021, L506.0400, L501.9520, L100.0100, L503.7505, L500.2500 #### [facility] [address] [place], [address] Globulin (S) [Mass/Vol] 4.3 g/dL High 2.2-4.2 [facility] Comment on above: Performed By: #### L 501.4021, L506.0400, L501.9520, L100.0100, L503.7505, L500.2500 #### [facility] [address] [place], [address] Glucose [Mass/Vol] 226 mg/dL High 74-106 [facility] Comment on above: Result Comment: Gluc ose result greater than or equal to 200 mg/dL suggests DIABETES MELLITUS per A.D.A. criteria. Performed By: #### L 501.4021, L506.0400, L501.9520, L100.0100, L503.7505, L500.2500 #### [facility] [address] [place], [address] Potassium [Moles/Vol] 3.7 mmol/L Normal 3.5-5.1 [facility] Comment on above: Performed By: #### L 501.4021, L506.0400, L501.9520, L100.0100, L503.7505, L500.2500 #### [facility] [address] [place], [address] Sodium [Moles/Vol] 135 mmol/L Low 136-145 [facility] Comment on above: Performed By: #### L 501.4021, L506.0400, L501.9520, L100.0100, L503.7505, L500.2500 #### [facility] [address] [place], [address] T PROT 7.3 g/dL Normal 6.4-8.[address] [facility] Comment on above: Performed By: #### L 501.4021, L506.0400, L501.9520, L100.0100, L503.7505, L500.2500 #### [facility] [address] [place], [address] Urea nitrogen [Mass/Vol] 23 mg/dL High 7-[address] [facility] Comment on above: Performed By: #### L 501.4021, L506.0400, L501.9520, L100.0100, L503.7505, L500.2500 #### [facility] [address] [place], [address] Gram Stainon 10-11-2024 GS SENT LABEL TO U FOR COLLECTION Acceptable Specimen? Yes (<25 Epithelial cells per/lpf) Gram Stain Rare White Blood Cells Rare Epithelial cells 3+ Gram positive cocci in chains 1+ Gram negative rods Normal [facility] Comment on above: Performed By: #### L 503.6005, L300.3900, L501.5425, L100.0100, L500.2500, L300.4310, L503.6620 #### [facility] [address] [place], [address] Hemoglobin A1con 10-11-2024 HbA1c (Bld) [Mass fraction] 9.5 % High 3.8-5.[address] [facility] Comment on above: Result Comment: Norm al < 5.7 % Prediabetic 5.7 - 6.4 % Diabetic >or= 6.5 % Please note range changes. Performed By: #### L 501.4021, L506.0400, L501.9520, L100.0100, L503.7505, L500.2500 #### [facility] [address] [place], [address] L501.4020on 10-11-2024 TROPONIN-I HS 99 pg/mL High 3.0-78.[address] [facility] Comment on above: Order Comment: 'TROP ' Serial specimen #1, #2 or #3: 3 3 Result Comment: Plea se Note: New Test Units and Gender Specific Reference Ranges. For more information see Policy Stat Procedure [place] High Sensitivity Troponin (TNIH) and attachments. Performed By: #### L 501.4020 #### [facility] [address] [place], [address] Lipid Profileon 10-11-[address] [facility] Comment on above: Result Comment: DUPL ICATE ORDER. The drugs N-Acetylcysteine and Metamizole may falsely depress this assay. Performed By: #### L 501.4021, L506.0400, L501.9520, L100.0100, L503.7505, L500.2500 #### [facility] [address] [place], [address] TR[address] [facility] Comment on above: Result Comment: DUPL ICATE ORDER. The drugs N-Acetylcysteine and Metamizole may falsely depress this assay. Performed By: #### L 501.4021, L506.0400, L501.9520, L100.0100, L503.7505, L500.2500 #### [facility] [address] [place], [address] Cholesterol [Mass/Vol] 146 mg/dL Normal 200 [facility] Comment on above: Result Comment: <200 mg/dL Desirable 200-240 mg/dL Borderline >240 mg/dL High Risk Performed By: #### L 501.4021, L506.0400, L501.9520, L100.0100, L503.7505, L500.2500 #### [facility] [address] [place], [address] Cholesterol in HDL [Mass/Vol] 33 mg/dL Low [facility] Comment on above: Result Comment: The drugs N-Acetylcysteine and Metamizole may falsely depress this assay. Reference Range HDL <40 mg/dL Low HDL Cholesterol HDL >or= 60 mg/dL High HDL Cholesterol Performed By: #### L 501.4021, L506.0400, L501.9520, L100.0100, L503.7505, L500.2500 #### [facility] [address] [place], [address] Cholesterol in LDL [Mass/Vol] 89 mg/dL Normal 0-[address] [facility] Comment on above: Performed By: #### L 501.4021, L506.0400, L501.9520, L100.0100, L503.7505, L500.2500 #### [facility] [address] [place], [address] Cholesterol in VLDL [Mass/Vol] 24 mg/dL Normal 5-[address] [facility] Comment on above: Performed By: #### L 501.4021, L506.0400, L501.9520, L100.0100, L503.7505, L500.2500 #### [facility] [address] [place], [address] Triglyceride [Mass/Vol] 119 mg/dL Normal [facility] Comment on above: Result Comment: The drugs N-Acetylcysteine and Metamizole may falsely depress this assay. Serum Triglycerides Reference Interval Normal <150 mg/dL Borderline high 150 - 199 mg/dL High 200 - 499 mg/dL Very High > or = 500 mg/dL Performed By: #### L 501.4021, L506.0400, L501.9520, L100.0100, L503.7505, L500.2500 #### [facility] [address] [place], [address] CHOL Normal [address] [facility] Comment on above: Result Comment: DUPL ICATE ORDER. Performed By: #### L 501.4021, L506.0400, L501.9520, L100.0100, L503.7505, L500.2500 #### [facility] [address] [place], [address] LDL Normal 0-[address] [facility] Comment on above: Result Comment: DUPL ICATE ORDER. Performed By: #### L 501.4021, L506.0400, L501.9520, L100.0100, L503.7505, L500.2500 #### [facility] [address] [place], [address] VLDL Normal 5-[address] [facility] Comment on above: Result Comment: DUPL ICATE ORDER. Performed By: #### L 501.4021, L506.0400, L501.9520, L100.0100, L503.7505, L500.2500 #### [facility] [address] [place], [address] Magnesiumon 10-11-2024 Magnesium [Mass/Vol] 2.0 mg/dL Normal 1.6-2.6 [facility] Comment on above: Performed By: #### L 501.4021, L506.0400, L501.9520, L100.0100, L503.7505, L500.2500 #### [facility] [address] [place], [address] Phosphoruson 10-11-2024 Phosphate [Mass/Vol] 2.8 mg/dL Normal 2.5-4.9 [facility] Comment on above: Performed By: #### L 501.4021, L506.0400, L501.9520, L100.0100, L503.7505, L500.2500 #### [facility] [address] [place], [address] RESPIRATORY PANEL MOLECULARo n 10-11-2024 RP PANEL ADENOVIRUS Not Detected INFLUENZA A Not Detected INFLUENZA A (SUBTYPE H1) Not Detected INFLUENZA A (SUBTYPE H3) Not Detected INFLUENZA B Not Detected HUMAN METAPHNEUMO Not Detected PARAINFLUENZA 1 Not Detected PARAINFLUENZA 2 Not Detected PARAINFLUENZA 3 Not Detected PARAINFLUENZA 4 Not Detected RHINOVIRUS Not Detected RSV A Not Detected RSV B Not Detected Normal [facility] Comment on above: Performed By: #### L 503.6005, L300.3900, L501.5425, L100.0100, L500.2500, L300.4310, L503.6620 #### [facility] [address] [facility] [place], [address] Thyroid Stim Hormone (TSH)on 10-11-2024 TSH 1.590 uIU/mL Normal 0.358-3.[address] [facility] Comment on above: Performed By: #### L 501.4021, L506.0400, L501.9520, L100.0100, L503.7505, L500.2500 #### [facility] [address] [place], [address] 12 Lead EKGon 10-10-2024 12 Lead EKG [facility] Cardiovascular Services [address] [place] [address] 12 Lead EKG 10/10/241957 MR#: [id number] Acct: [id number] Name: LATONYA ELDER Rep #: [id number] : 1970 54 From: Harvey Murphy MD Attending Dr: Dr. Nasim Leblanc MD Status: ADM IN Ordering Dr: Brennon Mckeon DO Date: 10/10/24 Location: [facility] Sex: M C Admitted: 10/11/24 Test Reason : DYSRHYTHMIA Blood Pressure : */* mmHG Vent. Rate : 85 BPM Atrial Rate : 85 BPM P-R Int : 164 ms QRS Dur : 102 ms QT Int : 410 ms P-R-T Axes : 67 32 83 degrees QTcB Int : 487 ms Normal sinus rhythm Low voltage QRS Cannot rule out Anterior infarct , age undetermined Abnormal ECG Confirmed by Harvey Murphy ([id number]), senior technical editor EVELIO CURRY ([id number]) on 10/13/2024 6:24:07 AM Referred By: Confirmed By: Harvey Murphy 10/13/24 0624 Date Harvey Murphy MD CC: Dr. Beka Bowie MD; Dr. Brennon Mckeon DO; Dr. Nasim Leblanc MD Signed Normal [facility] BNP,B-Type NATRIURETIC PEPTI [place]ow 10-10-2024 Natriuretic peptide B (Bld) [Mass/Vol] 261.1 pg/mL High 0-[address] [facility] Comment on above: Performed By: #### L 501.4020 #### [facility] [address] [place], [address] Basic Metabolic Profile (BMP )on 10-10-2024 BUN/CRE 14.7 RATIO Normal 10-[address] [facility] Comment on above: Order Comment: 1Y Performed By: #### L 501.4020 #### [facility] [address] [place], [address] CA,Total 8.9 mg/dL Normal 8.5-10.[address] [facility] Comment on above: Order Comment: 1Y Performed By: #### L 501.4020 #### [facility] [address] [place], [address] Chloride [Moles/Vol] 105 mmol/L Normal 98-107 [facility] Comment on above: Order Comment: 1Y Performed By: #### L 501.4020 #### [facility] [address] [place], [address] CO2 [Moles/Vol] 28.0 mmol/L Normal 21.0-32.[address] [facility] Comment on above: Order Comment: 1Y Performed By: #### L 501.4020 #### [facility] [address] [place], [address] Creatinine [Mass/Vol] 1.09 mg/dL Normal 0.70-1.30 [facility] Comment on above: Order Comment: 1Y Result Comment: The validity of the calculated GFR GFRAA in patients over 70 years has not been determined. Clinical correlation is essential. Performed By: #### L 501.4020 #### [facility] [address] [place], [address] ECRCL 92.66 ml/min Normal [facility] Comment on above: Order Comment: 1Y Performed By: #### L 501.4020 #### [facility] [address] [place], [address] EST GFR - AA 91 mL/min Normal >[address] [facility] Comment on above: Order Comment: 1Y Result Comment: Afri can Ivorian GFR Calc Performed By: #### L 501.4020 #### [facility] [address] [place], [address] GAP 6 Normal 5-[address] [facility] Comment on above: Order Comment: 1Y Performed By: #### L 501.4020 #### [facility] [address] [place], [address] GFR/1.73 sq M.predicted among non-blacks MDRD (S/P/Bld) [Vol rate/Area] 75 mL/min/{1.73_m2} Normal >[address] [facility] Comment on above: Order Comment: 1Y Result Comment: Non- GFR Calc Performed By: #### L 501.4020 #### [facility] [address] [place], [address] Glucose [Mass/Vol] 160 mg/dL High 74-106 [facility] Comment on above: Order Comment: 1Y Result Comment: Fast ing Glucose result greater than or equal to 126 mg/dL suggests DIABETES MELLITUS per A.D.A. criteria. Performed By: #### L 501.4020 #### [facility] [address] [place], [address] Potassium [Moles/Vol] 3.7 mmol/L Normal 3.5-5.1 [facility] Comment on above: Order Comment: 1Y Performed By: #### L 501.4020 #### [facility] [address] [place], [address] Sodium [Moles/Vol] 138 mmol/L Normal 136-145 [facility] Comment on above: Order Comment: 1Y Performed By: #### L 501.4020 #### [facility] [address] [place], [address] Urea nitrogen [Mass/Vol] 16 mg/dL Normal 7-[address] [facility] Comment on above: Order Comment: 1Y Performed By: #### L 501.4020 #### [facility] [address] [place], [address] CBC W/Diff, Automatedon 11-2 2-2023 Absolute Lymph 1.94 X10 3/uL Normal 0.83-4.[address] [facility] Comment on above: Performed By: #### L 503.6005, L300.3900, L501.5425, L100.0100, L500.2500, L300.4310, L503.6620 #### [facility] [address] [place], [address] Absolute Neut 8.6 X10 3/uL High 2.0-7.[address] [facility] Comment on above: Performed By: #### L 503.6005, L300.3900, L501.5425, L100.0100, L500.2500, L300.4310, L503.6620 #### [facility] [address] [place], [address] Basophils/100 WBC (Bld) 0.4 % Normal 0-1 [facility] Comment on above: Performed By: #### L 503.6005, L300.3900, L501.5425, L100.0100, L500.2500, L300.4310, L503.6620 #### [facility] [address] [place], [address] Eosinophils/100 WBC (Bld) 0.6 % Normal 0-[address] [facility] Comment on above: Performed By: #### L 503.6005, L300.3900, L501.5425, L100.0100, L500.2500, L300.4310, L503.6620 #### [facility] [address] [place], [address] Erythrocyte distribution width (RBC) [Ratio] 13.4 % Normal 11.6-14.[address] [facility] Comment on above: Performed By: #### L 503.6005, L300.3900, L501.5425, L100.0100, L500.2500, L300.4310, L503.6620 #### [facility] [address] [place], [address] Hematocrit (Bld) [Volume fraction] 39.2 % Low 40-[address] [facility] Comment on above: Performed By: #### L 503.6005, L300.3900, L501.5425, L100.0100, L500.2500, L300.4310, L503.6620 #### [facility] [address] [place], [address] Hemoglobin (Bld) [Mass/Vol] 12.6 g/dL Low 13.0-16.[address] [facility] Comment on above: Performed By: #### L 503.6005, L300.3900, L501.5425, L100.0100, L500.2500, L300.4310, L503.6620 #### [facility] [address] [place], [address] IG% 0.300 Normal 0.0-0.[address] [facility] Comment on above: Result Comment: IG% - Immature Granulocytes (promyelocytes, myelocytes and metamyelocytes) > 1% indicates that a LEFT SHIFT is Present. Performed By: #### L 503.6005, L300.3900, L501.5425, L100.0100, L500.2500, L300.4310, L503.6620 #### [facility] [address] [place], [address] Lymphocytes/100 WBC (Bld) 16.3 % Low 19-[address] [facility] Comment on above: Performed By: #### L 503.6005, L300.3900, L501.5425, L100.0100, L500.2500, L300.4310, L503.6620 #### [facility] [address] [place], [address] MCH (RBC) [Entitic mass] 27.8 pg Normal 27.0-32.[address] [facility] Comment on above: Performed By: #### L 503.6005, L300.3900, L501.5425, L100.0100, L500.2500, L300.4310, L503.6620 #### [facility] [address] [place], [address] MCHC (RBC) [Mass/Vol] 32.1 g/dL Normal 32-36 [facility] Comment on above: Performed By: #### L 503.6005, L300.3900, L501.5425, L100.0100, L500.2500, L300.4310, L503.6620 #### [facility] [address] [place], [address] MCV (RBC) [Entitic vol] 86.3 fL Normal 80-94 [facility] Comment on above: Performed By: #### L 503.6005, L300.3900, L501.5425, L100.0100, L500.2500, L300.4310, L503.6620 #### [facility] [address] [place], [address] Monocytes/100 WBC (Bld) 10.3 % High 0-10 [facility] Comment on above: Performed By: #### L 503.6005, L300.3900, L501.5425, L100.0100, L500.2500, L300.4310, L503.6620 #### [facility] [address] [place], [address] Neutrophils/100 WBC (Bld) 72.1 % High 47-[address] [facility] Comment on above: Performed By: #### L 503.6005, L300.3900, L501.5425, L100.0100, L500.2500, L300.4310, L503.6620 #### [facility] [address] [place], [address] Nucleated RBC (Bld) [#/Vol] 0 10*3/uL Normal 0-[address] [facility] Comment on above: Performed By: #### L 503.6005, L300.3900, L501.5425, L100.0100, L500.2500, L300.4310, L503.6620 #### [facility] [address] [place], [address] Platelet mean volume (Bld) [Entitic vol] 10.3 fL Normal 6.2-12.[address] [facility] Comment on above: Performed By: #### L 503.6005, L300.3900, L501.5425, L100.0100, L500.2500, L300.4310, L503.6620 #### [facility] [address] [place], [address] Platelets (Bld) [#/Vol] 320 10*3/uL Normal 150-[address] [facility] Comment on above: Performed By: #### L 503.6005, L300.3900, L501.5425, L100.0100, L500.2500, L300.4310, L503.6620 #### [facility] [address] [place], [address] RBC (Bld) [#/Vol] 4.54 10*6/uL Low 4.6-6.2 [facility] Comment on above: Performed By: #### L 503.6005, L300.3900, L501.5425, L100.0100, L500.2500, L300.4310, L503.6620 #### [facility] [address] [place], [address] RDW SD 41.7 fl Normal 35.1-43.[address] [facility] Comment on above: Performed By: #### L 503.6005, L300.3900, L501.5425, L100.0100, L500.2500, L300.4310, L503.6620 #### [facility] [address] [place], [address] WBC (Bld) [#/Vol] 11.9 10*3/uL High 4.4-11.0 [facility] Comment on above: Performed By: #### L 503.6005, L300.3900, L501.5425, L100.0100, L500.2500, L300.4310, L503.6620 #### [facility] [address] [place], [address] CTA Chest W/WO Contraston CTA Chest W/WO Contrast [facility] Imaging Services [address] [place] [address] CTA Chest W/WO Contrast MR#: [id number] Acct: [id number] Name: LATONYA ELDER Rep #: [id number] : 1970 M 54 From: David Yanez MD PCP: Dr. Beka Bowie MD Status: [facility] ER Study: CTA Chest W/WO Contrast Date of Exam: 10/10/24 Exam# [id number] Ordering Dr: Brennon Mckeon DO -[id number] STUDY: CTA CHEST REASON FOR EXAM: Male, 54 years old. Dyspnea RADIATION DOSAGE (If Supplied By Facility): CTDIvol = ( 10.38 ) mGy, DLP = ( 488.14 ) mGycm TECHNIQUE: The examination was performed with the intravenous administration of IV 100mL Isovue-370. Post-processing of the angiographic images was performed, with multiplanar reformation and 3D reconstruction. Individualized dose optimization techniques were used for this CT. COMPARISON: September 25, 2024 FINDINGS: Normal enhancement of the main pulmonary artery and right and left pulmonary arteries. Normal enhancement of the bilateral peripheral pulmonary arteries. There is no demonstrated pulmonary embolism. Minor atherosclerotic changes of the aorta without evidence for aneurysm. There is no demonstrated aortic dissection. The heart is enlarged and there is a small pericardial effusion with multifocal coronary artery calcification Small subcentimeter mediastinal and hilar nodes likely benign.. Normal visualized trachea and bronchi. The lungs are well expanded. Mild bibasilar interstitial thickening with groundglass opacity possibly due to mild pulmonary interstitial edema or inflammatory disease.. Normal pleura. Normal chest wall structures. Dorsal spine demonstrates degenerative change Tiny hypoattenuated nodule in the right adrenal likely benign CT/CTA Chest W/WO Contrast IMPRESSION: ASHD and questionable mild bibasilar interstitial edema or infiltrates No evidence for pulmonary embolus Electronically Signed: David Yanez MD at 20:40 EST Reading Location ID and State: [address] [place] [address] Tel , Service support , CC: Dr. Beka Bowie MD; Dr. Brennon Mckeon DO Job Coaching: Signed Normal [facility] Emergency Department Summary on 10-10-[address] [facility] Medical Records Department [address] [place] [address] Emergency Department Summary 10/10/24 MR#: [id number] Acct: [id number] Name: LATONYA ELDER Rep #: [id number] : 1970 54 From: Brennon Mckeon DO PCP: Dr. Beka Bowie MD Status:ADM IN Location: PCU [id number] HPI History of Present Illness Chief Complaint: Shortness of Breath Informant: patient and spouse/S.O. Onset/Context/Li g Onset: Month(s) (2) Context: gradual Timing: Continuous Quality: Positive for Orthopnea Worsened by: Lying flat Relieved by: Nothing Associated Symptoms cough, yellow sputum and other; Negative for rhinorrhea, post nasal drip, ear pain, fever, sore throat, chills, sweats, clear sputum, white sputum or green sputum Chest Pain: Positive for Aching Narrative Narrative: Patient presents with shortness of breath that has been getting worse over the last 2 months. Patient states it is gradually getting worse. Patient states that it is constant. Patient states he feels like he cannot get any air into his lungs. Patient states he is coughing up some thick brown sputum. Patient admits to some subjective fevers but states when he took his temperature was only 99. Patient states his breathing is worse when he lays flat. Patient admits to some aching in his chest and back. Patient states he was recently diagnosed with bilateral DVTs. Patient states he has been taking his Eliquis as prescribed. PE Risk Factors: Positive for Prior DVT or PE; Negative for Cancer, OCP + Smoking + > 35, Recent immobilization, Recent surgery or Recent travel [facility] Medical History Acute sinusitis, unspecified Left shoulder pain Insulin dependent diabetes mellitus Coronary artery disease Essential hypertension Cluster headache Migraine Headache Diabetes Obesity Community acquired pneumonia Smoker Asthma Myocardial infarct Ischemic cardiomyopathy Obesity (BMI 30.0-34.9) Chronic obstructive pulmonary disease (COPD) Nicotine dependence COPD (chronic obstructive pulmonary disease) Hyperlipidemia History of non-ST elevation myocardial infarction (NSTEMI) (11/22/20) Atherosclerosis of quileute coronary artery of quileute heart without angina pectoris Non-ST elevation NE (NSTEMI) Home Medications ???Medication ???Instructions ???Recorded ???Last Taken ???Type aspirin 81 mg chewable tablet 81 mg PO DAILY heart health 04/27/22 04/27/22 History loratadine 10 mg tablet 10 mg PO DAILY PRN allergies 06/26/22 Unknown History carvedilol 25 mg tablet 25 mg PO BIDCM [facility] #180 04/24/23 Unknown Rx tabs clonidine HCl 0.1 mg tablet 0.1 mg PO BID blood pressure #180 04/24/23 Unknown Rx tabs amlodipine 10 mg tablet 10 mg PO DAILY blood pressure #90 06/25/23 Unknown Rx tabs lisinopril 20 mg tablet 20 mg PO BID blood pressure #180 11/26/23 Unknown Rx tabs insulin lispro 200 unit/mL (3 mL) 14 unit subcut TIDCM glucose 12/24/23 Unknown History subcutaneous pen (Humalog KwikPen U-200 Insulin) atorvastatin 80 mg tablet 80 mg PO QHS cholesterol #90 tabs 12/28/23 Unknown Rx insulin degludec 200 unit/mL (3 50 unit (0.25 mL) subcut QHS blood 12/28/23 Unknown Rx mL) subcutaneous pen (Tresiba sugar 3 months #22.5 mL FlexTouch U-200 insulin) ranolazine 1,000 mg 1,000 mg PO BID heart #60 tabs 01/03/24 Unknown Rx tablet,extended release,12 hr clopidogrel 75 mg tablet (Plavix) 75 mg PO DAILY #90 tabs 01/15/24 Unknown Rx isosorbide mononitrate 60 mg 60 mg PO BID heart #180 TABLETS 01/15/24 Unknown Rx tablet,extended release 24 hr levofloxacin 750 mg tablet 750 mg PO DAILY #7 tabs 01/31/24 Unknown Rx nitroglycerin 0.4 mg sublingual 0.4 mg sublingual Q5-15M #25 tabs 07/22/24 Unknown Rx tablet albuterol sulfate 90 mcg/actuation 2 puff inhalation 4X/DAY PRN 09/01/24 Unknown Rx aerosol inhaler Shortness Of Breath #8.5 grams albuterol sulfate 90 mcg/actuation 2 puff inhalation Q4H PRN PRN 09/25/24 Unknown Rx aerosol inhaler (Ventolin HFA) Wheezing ##1 apixaban 5 mg tablet (Eliquis) 5 mg PO BID #74 tabs 09/25/24 Unknown Rx Allergy/AdvReac Type Severity Reaction Status Date / Time amoxicillin trihydrate (From Allergy Rash Verified 10/10/24 18:29 Augmentin) potassium clavulanate (From Allergy Rash Verified 10/10/24 18:29 Augmentin) ticagrelor (From Brilinta) Allergy Shortness Verified 10/10/24 18:29 of breath codeine AdvReac Nausea Verified 10/10/24 18:29 Family History Sister Myocardial infarction, Onset Age: 41 Diabetes Mother COPD (chronic obstructive pulmonary disease) Asthma Rheumatoid arthritis CVA (cerebral vascular accident) Hypertension Grandmother Diabetes Surgical History (Re (more content not included)... Normal [facility] H AND P Exam - Hospitaliston 10-10-2024 H&P Exam - Hospitalist [facility] Medical Records Department [address] [place] [address] H P Exam - Hospitalist 10/10/24 2336 MR#: [id number] Acct: [id number] Name: LATONYA ELDER Rep #: [id number] : 1970 54 From: Mitchell Deras DO PCP: Dr. Beka Bowie MD Status:ADM IN Location: [place] [address] HPI - General General Date of Admission: 10/11/24 Date of Service: 10/10/24 Chief Complaint: SOB and Cough. HPI Narrative LATONYA ELDER, is a 54 M with a past medical history of essential hypertension; on coreg, lisinopril and clonidine, hyperlipidemia; on high dose atrovastatin, obesity; with BMI of 35.7 this admission, IDDM; of unknown control on degludec and humalog TID, history of HONK, history of tobacco abuse; with subsequent asthma/COPD, CAD; s/p stent (2003) and NSTEMI (2016, 2018 2020) on BASA and Plavix, Ischemic Cardiomyopathy; with chronic chest pain on ranolazine, ISMO and prn NTG, history of CHF; with peripheral edema, history of recently diagnosed bilateral LE DVT's; on apixaban, history of sepsis, history of appendectomy, history of hernia; s/p repair (2008), remote history of umbilical hernia repair (1971), history of migraine cluster headaches, history of sinusitis, history of vitamin D deficiency, history of thrush, seasonal allergies, listed allergy to augmentin (rash), listed allergy to brilinta (SOB), listed allergy to codeine (nausea) and OA; with chronic Left shoulder pain and history of neck surgery who presents to [facility] ER complaining of SOB and cough. Mr. Elder reports his symptoms began approximately 2 months prior to admission with the gradual-onset of progressively worsening LOPEZ with patient now significantly SOB at rest. He states he constantly feels like he cannot get enough air in his lungs in addition to having a cough productive of thick, brownish sputum which he states is very unusual for him. He admits to subjective fever with his temperature mildly elevated at 99 degrees Fahrenheit with headache followed by nausea with bilious emesis. He states his SOB is made worse with activity and lying flat with a corresponding aching sensation in his chest and back. He affirms he has been taking his Eliquis and other medications as prescribed - but he continued to get worse so he finally decided to come in for further evaluation and treatment. He denies associated chills, runny nose, sore throat, chest pain, palpitations, paresthesias or rash but he does admit to generalized weakness and fatigue. In the ER he was diagnosed with AE COPD plus acute Bronchitis with a corresponding Leukocytosis of 11.9 K present on admission complicated by clinical evidence of Acute Respiratory Insufficiency patient requiring 4L NC compounded by mild, but poorly tolerated AE CHF with chest imaging consistent with pulmonary vascular congestion and elevated BNP of 261.1 pg/mL present on admission along with elevated troponin of 105 pg/mL likely due to Acute Cardiac Strain and he was then admitted to the PCU for ongoing care for stay that is expected to extend beyond 2 midnights. [facility] Medical History Acute sinusitis, unspecified Left shoulder pain Insulin dependent diabetes mellitus Coronary artery disease Essential hypertension Cluster headache Migraine Headache Diabetes Obesity Community acquired pneumonia Smoker Asthma Myocardial infarct Ischemic cardiomyopathy Obesity (BMI 30.0-34.9) Chronic obstructive pulmonary disease (COPD) Nicotine dependence COPD (chronic obstructive pulmonary disease) Hyperlipidemia History of non-ST elevation myocardial infarction (NSTEMI) (11/22/20) Atherosclerosis of quileute coronary artery of quileute heart without angina pectoris Non-ST elevation NE (NSTEMI) Home Medications ???Medication ???Instructions ???Recorded ???Last Taken ???Type aspirin 81 mg chewable tablet 81 mg PO DAILY heart health 04/27/22 04/27/22 History loratadine 10 mg tablet 10 mg PO DAILY PRN allergies 06/26/22 Unknown History carvedilol 25 mg tablet 25 mg PO BID heart health #180 04/24/23 Unknown Rx tabs clonidine HCl 0.1 mg tablet 0.1 mg PO BID blood pressure #180 04/24/23 Unknown Rx tabs amlodipine 10 mg tablet 10 mg PO DAILY blood pressure #90 06/25/23 Unknown Rx tabs lisinopril 20 mg tablet 20 mg PO BID blood pressure #180 11/26/23 Unknown Rx tabs insulin lispro 200 unit/mL (3 mL) 14 unit subcut TIDCM glucose 12/24/23 Unknown History subcutaneous pen (Humalog KwikPen U-200 Insulin) atorvastatin 80 mg tablet 80 mg PO QHS cholesterol #90 tabs 12/28/23 Unknown Rx insulin degludec 200 unit/mL (3 50 unit (0.25 mL) subcut QHS blood 12/28/23 Unknown Rx mL) subcutaneous pen (Tresiba sugar 3 months #22.5 mL FlexTouch U-200 insulin) ranolazine 1,000 mg 1,000 mg PO BID heart #60 tabs 02 (more content not included)... Normal [facility] L501.4020on 10-10-2024 TROPONIN-I HS 105 pg/mL High 3.0-78.[address] [facility] Comment on above: Result Comment: Colette antunez Note: New Test Units and Gender Specific Reference Ranges. For more information see Policy Stat Procedure [place] High Sensitivity Troponin (TNIH) and attachments. Performed By: #### L 501.4020 #### [facility] Laboratory [address] [place], [place], [address] L501.5425on 10-10-2024 TROPONIN-I HS 112 pg/mL High 3.0-78.[address] [facility] Comment on above: Order Comment: 1Y Result Comment: Pleazra antunez Note: New Test Units and Gender Specific Reference Ranges. For more information see Policy Stat Procedure [place] High Sensitivity Troponin (TNIH) and attachments. Performed By: #### L 501.4020 #### [facility] [address] [place], [place], [address] Lactic Acidon 11-22-2024 Lactate [Moles/Vol] 1.2 mmol/L Normal 0.4-1.9 [facility] Comment on above: Order Comment: Y Performed By: #### L 501.4020 #### [facility] [address] [place], [address] Partial Thromboplast Timeon 10-10-2024 aPTT Coag (Bld) [Time] 28.5 s Normal 24.1-36.2 [facility] Comment on above: Performed By: #### L 501.4020 #### [facility] [address] [place], [address] Prothrombin Time w/INRon INR Coag (PPP) [Relative time] 1.3 {INR} Normal [facility] Comment on above: Performed By: #### L 501.4020 #### [facility] [address] [place], [address] PT Coag (PPP) [Time] 15.7 s High 11.7-14.9 [facility] Comment on above: Performed By: #### L 501.4020 #### [facility] [address] [place], [address] 12 Lead EKGon 09-25-2024 12 Lead EKG [facility] Cardiovascular Services [address] [place] [address] 12 Lead EKG 09/25/24 1653 MR#: [id number] Acct: [id number] Name: LATONYA ELDER Rep #: [id number] : 1970 54 From: Eric Flores MD Attending Dr: Status: DEP ER Ordering Dr: Brennon Mckeon DO Date: 09/25/24 Location: ED Sex: M C Admitted: Test Reason : SOB Blood Pressure : */* mmHG Vent. Rate : 82 BPM Atrial Rate : 82 BPM P-R Int : 174 ms QRS Dur : 98 ms QT Int : 398 ms P-R-T Axes : 64 62 78 degrees QTcB Int : 464 ms Normal sinus rhythm Possible Left atrial enlargement Septal infarct (cited on or before 26-Jun-2022) Abnormal ECG Confirmed by SANDRA EVANGELISTA, ERIC ([id number]), senior technical editor TESS PERRY ([id number]) on 09/29/2024 10:11:59 AM Referred By: Confirmed By: ERIC FLORES MD 09/29/24 1012 Date Eric Flores MD CC: Dr. Beka Bowie MD; Dr. Brennon Mckeon, DO Signed Normal [facility] BNP,B-Type NATRIURETIC PEPTI Willow 09-25-2024 Natriuretic peptide B (Bld) [Mass/Vol] 307.2 pg/mL High 0-[address] [facility] Comment on above: Performed By: #### L 501.4021, L506.0400, L501.9520, L100.0100, L503.7505, L500.2500 #### [facility] [address] [place], [address] Basic Metabolic Profile (BMP )on 09-25-2024 BUN/CRE 20.7 RATIO High 10-[address] [facility] Comment on above: Order Comment: 'TROP ' Serial specimen #1, #2 or #3: 1 Performed By: #### L 501.4021, L506.0400, L501.9520, L100.0100, L503.7505, L500.2500 #### [facility] [address] [place], [address] CA,Total 8.8 mg/dL Normal 8.5-10.[address] [facility] Comment on above: Order Comment: 'TROP ' Serial specimen #1, #2 or #3: 1 Performed By: #### L 501.4021, L506.0400, L501.9520, L100.0100, L503.7505, L500.2500 #### [facility] [address] [place], [address] Chloride [Moles/Vol] 108 mmol/L High 98-107 [facility] Comment on above: Order Comment: 'TROP ' Serial specimen #1, #2 or #3: 1 Performed By: #### L 501.4021, L506.0400, L501.9520, L100.0100, L503.7505, L500.2500 #### [facility] [address] [place], [address] CO2 [Moles/Vol] 29.0 mmol/L Normal 21.0-32.[address] [facility] Comment on above: Order Comment: 'TROP ' Serial specimen #1, #2 or #3: 1 Performed By: #### L 501.4021, L506.0400, L501.9520, L100.0100, L503.7505, L500.2500 #### [facility] [address] [place], [address] Creatinine [Mass/Vol] 1.11 mg/dL Normal 0.70-1.30 [facility] Comment on above: Order Comment: 'TROP ' Serial specimen #1, #2 or #3: 1 Result Comment: The validity of the calculated GFR GFRAA in patients over 70 years has not been determined. Clinical correlation is essential. Performed By: #### L 501.4021, L506.0400, L501.9520, L100.0100, L503.7505, L500.2500 #### [facility] [address] [place], [address] ECRCL 93.07 ml/min Normal [facility] Comment on above: Order Comment: 'TROP ' Serial specimen #1, #2 or #3: 1 Performed By: #### L 501.4021, L506.0400, L501.9520, L100.0100, L503.7505, L500.2500 #### [facility] [address] [place], [address] EST GFR - AA 89 mL/min Normal >[address] [facility] Comment on above: Order Comment: 'TROP ' Serial specimen #1, #2 or #3: 1 Result Comment: Afri can Ivorian GFR Calc Performed By: #### L 501.4021, L506.0400, L501.9520, L100.0100, L503.7505, L500.2500 #### [facility] [address] [place], [address] GAP 3 Low 5-[address] [facility] Comment on above: Order Comment: 'TROP ' Serial specimen #1, #2 or #3: 1 Performed By: #### L 501.4021, L506.0400, L501.9520, L100.0100, L503.7505, L500.2500 #### [facility] [address] [place], [address] GFR/1.73 sq M.predicted among non-blacks MDRD (S/P/Bld) [Vol rate/Area] 74 mL/min/{1.73_m2} Normal >[address] [facility] Comment on above: Order Comment: 'TROP ' Serial specimen #1, #2 or #3: 1 Result Comment: Non- GFR Calc Performed By: #### L 501.4021, L506.0400, L501.9520, L100.0100, L503.7505, L500.2500 #### [facility] [address] [place], [address] Glucose [Mass/Vol] 128 mg/dL High 74-106 [facility] Comment on above: Order Comment: 'TROP ' Serial specimen #1, #2 or #3: 1 Result Comment: Fast ing Glucose result greater than or equal to 126 mg/dL suggests DIABETES MELLITUS per A.D.A. criteria. Performed By: #### L 501.4021, L506.0400, L501.9520, L100.0100, L503.7505, L500.2500 #### [facility] [address] [place], [address] Potassium [Moles/Vol] 4.5 mmol/L Normal 3.5-5.1 [facility] Comment on above: Order Comment: 'TROP ' Serial specimen #1, #2 or #3: 1 Performed By: #### L 501.4021, L506.0400, L501.9520, L100.0100, L503.7505, L500.2500 #### [facility] [address] [place], [address] Sodium [Moles/Vol] 140 mmol/L Normal 136-145 [facility] Comment on above: Order Comment: 'TROP ' Serial specimen #1, #2 or #3: 1 Performed By: #### L 501.4021, L506.0400, L501.9520, L100.0100, L503.7505, L500.2500 #### [facility] [address] [place], [address] Urea nitrogen [Mass/Vol] 23 mg/dL High 7-[address] [facility] Comment on above: Order Comment: 'TROP ' Serial specimen #1, #2 or #3: 1 Performed By: #### L 501.4021, L506.0400, L501.9520, L100.0100, L503.7505, L500.2500 #### [facility] [address] [place], [address] CBC W/Diff, Automatedon 11-0 7-2023 Absolute Lymph 3.00 X10 3/uL Normal 0.83-4.[address] [facility] Comment on above: Performed By: #### L 501.4021, L506.0400, L501.9520, L100.0100, L503.7505, L500.2500 #### [facility] [address] [place], [address] Absolute Neut 7.8 X10 3/uL High 2.0-7.[address] [facility] Comment on above: Performed By: #### L 501.4021, L506.0400, L501.9520, L100.0100, L503.7505, L500.2500 #### [facility] [address] [place], [address] Basophils/100 WBC (Bld) 0.5 % Normal 0-1 [facility] Comment on above: Performed By: #### L 501.4021, L506.0400, L501.9520, L100.0100, L503.7505, L500.2500 #### [facility] [address] [place], [address] Eosinophils/100 WBC (Bld) 2.7 % Normal 0-[address] [facility] Comment on above: Performed By: #### L 501.4021, L506.0400, L501.9520, L100.0100, L503.7505, L500.2500 #### [facility] [address] [place], [address] Erythrocyte distribution width (RBC) [Ratio] 13.2 % Normal 11.6-14.[address] [facility] Comment on above: Performed By: #### L 501.4021, L506.0400, L501.9520, L100.0100, L503.7505, L500.2500 #### [facility] [address] [place], [address] Hematocrit (Bld) [Volume fraction] 41.5 % Normal 40-[address] [facility] Comment on above: Performed By: #### L 501.4021, L506.0400, L501.9520, L100.0100, L503.7505, L500.2500 #### [facility] [address] [place], [address] Hemoglobin (Bld) [Mass/Vol] 13.4 g/dL Normal 13.0-16.[address] [facility] Comment on above: Performed By: #### L 501.4021, L506.0400, L501.9520, L100.0100, L503.7505, L500.2500 #### [facility] [address] [place], [address] IG% 0.600 Normal 0.0-0.[address] [facility] Comment on above: Result Comment: IG% - Immature Granulocytes (promyelocytes, myelocytes and metamyelocytes) > 1% indicates that a LEFT SHIFT is Present. Performed By: #### L 501.4021, L506.0400, L501.9520, L100.0100, L503.7505, L500.2500 #### [facility] [address] [place], [address] Lymphocytes/100 WBC (Bld) 24.3 % Normal 19-[address] [facility] Comment on above: Performed By: #### L 501.4021, L506.0400, L501.9520, L100.0100, L503.7505, L500.2500 #### [facility] [address] [place], [address] MCH (RBC) [Entitic mass] 28.3 pg Normal 27.0-32.[address] [facility] Comment on above: Performed By: #### L 501.4021, L506.0400, L501.9520, L100.0100, L503.7505, L500.2500 #### [facility] [address] [place], [address] MCHC (RBC) [Mass/Vol] 32.3 g/dL Normal 32-36 [facility] Comment on above: Performed By: #### L 501.4021, L506.0400, L501.9520, L100.0100, L503.7505, L500.2500 #### [facility] [address] [place], [address] MCV (RBC) [Entitic vol] 87.6 fL Normal 80-94 [facility] Comment on above: Performed By: #### L 501.4021, L506.0400, L501.9520, L100.0100, L503.7505, L500.2500 #### [facility] [address] [place], [address] Monocytes/100 WBC (Bld) 8.8 % Normal 0-10 [facility] Comment on above: Performed By: #### L 501.4021, L506.0400, L501.9520, L100.0100, L503.7505, L500.2500 #### [facility] [address] [place], [address] Neutrophils/100 WBC (Bld) 63.1 % Normal 47-[address] [facility] Comment on above: Performed By: #### L 501.4021, L506.0400, L501.9520, L100.0100, L503.7505, L500.2500 #### [facility] [address] [place], [address] Nucleated RBC (Bld) [#/Vol] 0 10*3/uL Normal 0-[address] [facility] Comment on above: Performed By: #### L 501.4021, L506.0400, L501.9520, L100.0100, L503.7505, L500.2500 #### [facility] [address] [place], [address] Platelet mean volume (Bld) [Entitic vol] 10.1 fL Normal 6.2-12.[address] [facility] Comment on above: Performed By: #### L 501.4021, L506.0400, L501.9520, L100.0100, L503.7505, L500.2500 #### [facility] [address] [place], [address] Platelets (Bld) [#/Vol] 330 10*3/uL Normal 150-[address] [facility] Comment on above: Performed By: #### L 501.4021, L506.0400, L501.9520, L100.0100, L503.7505, L500.2500 #### [facility] [address] [place], [address] RBC (Bld) [#/Vol] 4.74 10*6/uL Normal 4.6-6.2 [facility] Comment on above: Performed By: #### L 501.4021, L506.0400, L501.9520, L100.0100, L503.7505, L500.2500 #### [facility] [address] [place], [address] RDW SD 42.1 fl Normal 35.1-43.[address] [facility] Comment on above: Performed By: #### L 501.4021, L506.0400, L501.9520, L100.0100, L503.7505, L500.2500 #### [facility] [address] [place], [address] WBC (Bld) [#/Vol] 12.3 10*3/uL High 4.4-11.0 [facility] Comment on above: Performed By: #### L 501.4021, L506.0400, L501.9520, L100.0100, L503.7505, L500.2500 #### [facility] [address] [place], [address] CTA Chest W/WO Contrast CTA Chest W/WO Contrast [facility] Imaging Services [address] [place] [address] CTA Chest W/WO Contrast MR#: [id number] Acct: [id number] Name: LATONYA ELDER Rep #: [id number] : 1970 M 54 From: Kj myers MD PCP: Dr. Beka Bowie MD Status: REG ER Study: CTA Chest W/WO Contrast Date of Exam: 09/25/24 Exam# [id number] Ordering Dr: Brennon Mckeon DO -[id number] STUDY: CTA CHEST REASON FOR EXAM: Male, 54 years old. Elevated D-dimer RADIATION DOSAGE (If Supplied By Facility): CTDIvol = ( 24.33 ) mGy, DLP = ( 564.19 ) mGycm TECHNIQUE: The examination was performed with the intravenous administration of IV 100mL Isovue-370. Post-processing of the angiographic images was performed, with multiplanar reformation and 3D reconstruction. Individualized dose optimization techniques were used for this CT. COMPARISON: None. FINDINGS: Normal enhancement of the main pulmonary artery and right and left pulmonary arteries. Normal enhancement of the bilateral peripheral pulmonary arteries. There is no demonstrated pulmonary embolism. Normal thoracic aorta and visualized great vessels. There is no demonstrated aortic dissection. There is mild to moderate cardiomegaly. There are calcifications of the coronary arteries. Small pericardial effusion. There is suspicion of mild right hilar adenopathy. Normal visualized trachea and bronchi. The lungs are well expanded. Probable small bilateral pleural effusions. Small areas of probable pleural parenchymal scarring in the right medial cardiophrenic angle and along the anterolateral left lung base. Normal chest wall structures. Normal osseous structures. Normal visualized upper abdomen. CT/CTA Chest W/WO Contrast IMPRESSION: Normal CTA chest examination, without a demonstrated pulmonary embolism or arterial dissection. Probable small bilateral pleural effusions. Right hilar adenopathy is not excluded. Electronically Signed: Kj Brown MD at 18:49 EST , CC: Dr. Beka Bowie MD; Dr. Brennon Mckeon DO Job Coaching: Signed Normal [facility] Chest PA and Lateralon 09-25 Chest PA and Lateral [facility] Imaging Services [address] [place], [place] [address] Chest PA and Lateral MR#: [id number] Acct: [id number] Name: LATONYA ELDER Rep #: [id number] : 1970 M 54 From: Kj myers MD PCP: Dr. Beka Bowie MD Status: REG ER Study: Chest PA and Lateral Date of Exam: 09/25/24 Exam# [id number] Ordering Dr: Brennon Mckeon DO -[id number] STUDY: X-RAY CHEST REASON FOR EXAM: Male, 54 years old. Dyspnea TECHNIQUE: Frontal and lateral views of the chest. COMPARISON: 12/25/2023. FINDINGS: There is diffuse hazy density and prominence of the bronchovascular markings in both lungs, most consistent with congestive failure and pulmonary edema. No focal infiltrates are seen. Probable trace bilateral pleural effusions seen posteriorly. There is moderate cardiac enlargement. Normal mediastinum and soniya. Normal visualized pulmonary arteries. Normal visualized aortic arch and descending thoracic aorta. Normal visualized thoracic spine. Normal visualized ribs, clavicles, and shoulders. There is no demonstrated abnormality of the visualized soft tissue structures of the upper abdomen. RAD/Chest PA and Lateral IMPRESSION: Probable mild congestion/edema and cardiomegaly. Electronically Signed: Kj Brown MD at 18:08 EST , CC: Dr. Beka Bowie MD; Dr. Brennon Mckeon DO Job Coaching: Signed Normal [facility] D-Dimer Quantitative (DVT/PE )on 09-25-2024 D-DIMER QUANT 0.80 FEU/ug/m Invalid Interpretation Code 0.27-0.[address] [facility] Comment on above: Result Comment: D-Di olvin ELEVATED (>0.49): Additional studies and clinical assessments are indicated to conclude diagnosis of: Deep Vein Thrombosis (DVT) or Pulmonary Embolism (PE) RESULTS CALLED TO [place] 09/25/24 1751 Roya Quiñones. REPORT READ BACK BY SAME. Performed By: #### L 501.4021, L506.0400, L501.9520, L100.0100, L503.7505, L500.2500 #### [facility] Laboratory [address] [facility] [place], [address] Emergency Department Summary on 09-25-[address] [facility] Records Department [address] [place] [address] Emergency Department Summary 09/25/24 MR#: [id number] Acct: [id number] Name: LATONYA ELDER Rep #: [id number] : 1970 54 From: Brennon Mckeon DO PCP: Dr. Beka Bowie MD Status:DEP ER Location: ED HPI History of Present Illness Chief Complaint: Shortness of Breath Informant: patient Onset/Context/Timin g Onset: Weeks (6) Context: gradual Timing: Continuous Quality: Positive for Orthopnea Worsened by: Lying flat Relieved by: - (Sitting upright) Associated Symptoms cough, subjective, chills and yellow sputum; Negative for rhinorrhea, post nasal drip, ear pain, fever, sore throat, sweats, clear sputum, white sputum or green sputum Chest Pain: Positive for None Narrative Narrative: Patient presents with shortness of breath that has been getting worse over the last 6 weeks. Patient states has been constant. Patient states it is gradually getting worse. Patient states his breathing is worse whenever he lays flat. Patient states it is better when he sits up. Patient admits to cough with yellow-brown sputum. Patient also admits to some subjective chills. Patient also complains of increasing swelling of his lower extremities. Patient also admits to pain over the medial aspects of his thighs bilaterally. Patient denies any fevers. Patient admits to some vomiting after coughing. Patient also admits to a mild headache. also states that patient has had some syncopal episodes after coughing. [facility] Medical History Acute sinusitis, unspecified Left shoulder pain Insulin dependent diabetes mellitus Coronary artery disease Essential hypertension Cluster headache Migraine Headache Diabetes Obesity Community acquired pneumonia Smoker Asthma Myocardial infarct Ischemic cardiomyopathy Obesity (BMI 30.0-34.9) Chronic obstructive pulmonary disease (COPD) Nicotine dependence COPD (chronic obstructive pulmonary disease) Hyperlipidemia History of non-ST elevation myocardial infarction (NSTEMI) (11/22/20) Atherosclerosis of [place] coronary artery of [place] heart without angina pectoris Non-ST elevation NE (NSTEMI) Home Medications ???Medication ???Instructions ???Recorded ???Last Taken ???Type aspirin 81 mg chewable tablet 81 mg PO DAILY [facility] 04/27/22 04/27/22 History loratadine 10 mg tablet 10 mg PO DAILY PRN allergies 06/26/22 Unknown History carvedilol 25 mg tablet 25 mg PO BIDCM [facility] #180 04/24/23 Unknown Rx tabs clonidine HCl 0.1 mg tablet 0.1 mg PO BID blood pressure #180 04/24/23 Unknown Rx tabs amlodipine 10 mg tablet 10 mg PO DAILY blood pressure #90 06/25/23 Unknown Rx tabs lisinopril 20 mg tablet 20 mg PO BID blood pressure #180 11/26/23 Unknown Rx tabs insulin lispro 200 unit/mL (3 mL) 14 unit subcut TIDCM glucose 12/24/23 Unknown History subcutaneous pen (Humalog KwikPen U-200 Insulin) atorvastatin 80 mg tablet 80 mg PO QHS cholesterol #90 tabs 12/28/23 Unknown Rx insulin degludec 200 unit/mL (3 50 unit (0.25 mL) subcut QHS blood 12/28/23 Unknown Rx mL) subcutaneous pen (Tresiba sugar 3 months #22.5 mL FlexTouch U-200 insulin) ranolazine 1,000 mg 1,000 mg PO BID heart #60 tabs 01/03/24 Unknown Rx tablet,extended release,12 hr clopidogrel 75 mg tablet (Plavix) 75 mg PO DAILY #90 tabs 01/15/24 Unknown Rx isosorbide mononitrate 60 mg 60 mg PO BID heart #180 TABLETS 01/15/24 Unknown Rx tablet,extended release 24 hr levofloxacin 750 mg tablet 750 mg PO DAILY #7 tabs 01/31/24 Unknown Rx nitroglycerin 0.4 mg sublingual 0.4 mg sublingual Q5-15M #25 tabs 07/22/24 Unknown Rx tablet albuterol sulfate 90 mcg/actuation 2 puff inhalation 4X/DAY PRN 09/01/24 Unknown Rx aerosol inhaler Shortness Of Breath #8.5 grams albuterol sulfate 90 mcg/actuation 2 puff inhalation Q4H PRN PRN 09/25/24 Unknown Rx aerosol inhaler (Ventolin HFA) Wheezing ##1 apixaban 5 mg tablet (Eliquis) 5 mg PO BID #74 tabs 09/25/24 Unknown Rx Allergy/AdvReac Type Severity Reaction Status Date / Time amoxicillin trihydrate (From Allergy Rash Verified 09/25/24 16:40 Augmentin) potassium clavulanate (From Allergy Rash Verified 09/25/24 16:40 Augmentin) ticagrelor (From Brilinta) Allergy Shortness Verified 09/25/24 16:40 of breath codeine AdvReac Nausea Verified 09/25/24 16:40 Family History Sister Myocardial infarction, Onset Age: 41 Diabetes Mother COPD (chronic obstructive pulmonary disease) Asthma Rheumatoid arthritis CVA (cerebral vascular accident) Hypertension Grandmother Diabetes Surgical History History of coron (more content not included)... Normal [facility] L501.4020on 09-25-2024 TROPONIN-I HS 85 pg/mL High 3.0-78.[address] [facility] Comment on above: Order Comment: 'TROP ' Serial specimen #1, #2 or #3: 2 Result Comment: Colette antunez Note: New Test Units and Gender Specific Reference Ranges. For more information see Policy Stat Procedure [place] High Sensitivity Troponin (TNIH) and attachments. Performed By: #### L 501.4020 #### [facility] Laboratory [address] [place], [address] TROPONIN-I HS 92 pg/mL High 3.0-78.[address] [facility] Comment on above: Order Comment: 'TROP ' Serial specimen #1, #2 or #3: 1 Result Comment: Plea se Note: New Test Units and Gender Specific Reference Ranges. For more information see Policy Stat Procedure [place] High Sensitivity Troponin (TNIH) and attachments. Performed By: #### L 501.4021, L506.0400, L501.9520, L100.0100, L503.7505, L500.2500 #### [facility] Laboratory [address] [place], [address] M100.678on 09-25-2024 M100.678 Pending SARS-CoV-2 (COVID 19) Negative INFLUENZA A Negative INFLUENZA B Negative RSV PCR Negative Normal [facility] Comment on above: Performed By: #### L 501.4021, L506.0400, L501.9520, L100.0100, L503.7505, L500.2500 #### [facility] Laboratory [address] [place], [address] Venous Duplex Imag/Cj Extre [facility] 09-25-2024 Venous Duplex Imag/Cj Extrem [facility] Imaging Services [address] [place] [address] Venous Duplex Imag/Cj Extrem MR#: [id number] Acct: [id number] Name: LATONYA ELDER Rep #: [id number] : 1970 M 54 From: Kj myers MD PCP: Dr. Beka Bowie MD Status: DEP ER Study: Venous Duplex Imag/Cj Extrem Date of Exam: Exam# [id number] Ordering Dr: Brennon Mckeon DO ADDENDUM by Dr. Kj Brown MD on 09/25/24 at 2020 [id number] STUDY: VENOUS DOPPLER ULTRASOUND - BILATERAL LOWER EXTREMITIES REASON FOR EXAM: Male, 54 years old. Elevated D-Dimers, leg swelling/tenderness TECHNIQUE: Ultrasound evaluation of the deep vein system to include dave-scale imaging and compression was performed. Dave-scale imaging and Doppler sonographic evaluation, including duplex spectral analysis and qualitative color flow sonography, was performed. COMPARISON: None. FINDINGS: RIGHT LEG Common Femoral Vein: Normal compression, spontaneity and augmentation. Normal color Doppler. Common Femoral Vein/Greater Saphenous Junction: Normal compression, spontaneity and augmentation. Normal color Doppler. Femoral Proximal: Normal compression, spontaneity and augmentation. Normal color Doppler. Femoral Middle: Positive for DVT. Femoral Distal: Positive for DVT. Popliteal Vein: Normal compression, spontaneity and augmentation. Normal color Doppler. Posterior Tibial Vein: Normal compression, spontaneity and augmentation. Normal color Doppler. Peroneal Vein: Normal compression, spontaneity and augmentation. Normal color Doppler. LEFT LEG Common Femoral Vein: Normal compression, spontaneity and augmentation. Normal color Doppler. Common Femoral Vein/Greater Saphenous Junction: Normal compression, spontaneity and augmentation. Normal color Doppler. Femoral Proximal: Normal compression, spontaneity and augmentation. Normal color Doppler. Femoral Middle: Positive for DVT. Femoral Distal: Positive for DVT. Popliteal Vein: Normal compression, spontaneity and augmentation. Normal color Doppler. Posterior Tibial Vein: Normal compression, spontaneity and augmentation. Normal color Doppler. Peroneal Vein: Normal compression, spontaneity and augmentation. Normal color Doppler. [ 09/25/242020 Date cc: Dr. Beka Bowie MD; Dr. Brennon Mckeon, DO * Signed ADDENDUM by Dr. Kj Brown MD on 09/25/24 at 2020 US/Venous Duplex Imag/Cj Extrem IMPRESSION: Positive for DVT of the mid and distal superficial femoral veins bilaterally. The Nonstandard Physician Communication protocol was initiated. N.B. : Fidelina Rangel OT, confirmed on 09/25/2024 20:48:29 (ET) that the healthcare facility has received the radiology report. Electronically Signed: Kj Brown MD at 20:21 EST , 09/25/242054 Date cc: Dr. Beka Bowie MD; Dr. Brennon Mckeon, DO * Signed ACR Level 3 findings have been noted. An addendum which confirms receipt of the report will follow. [id number] STUDY: VENOUS DOPPLER ULTRASOUND - BILATERAL LOWER EXTREMITIES REASON FOR EXAM: Male, 54 years old. Elevated D-Dimers, leg swelling/tenderness TECHNIQUE: Ultrasound evaluation of the deep vein system to include dave-scale imaging and compression was performed. Dave-scale imaging and Doppler sonographic evaluation, including duplex spectral analysis and qualitative color flow sonography, was performed. COMPARISON: None. FINDINGS: RIGHT LEG Common Femoral Vein: Normal compression, spontaneity and augmentation. Normal color Doppler. Common Femoral Vein/Greater Saphenous Junction: Normal compression, spontaneity and augmentation. Normal color Doppler. Femoral Proximal: Normal compression, spontaneity and augmentation. Normal color Doppler. Femoral Middle: Positive for DVT. Femoral Distal: Positive for DVT. Popliteal Vein: Normal compression, spontaneity and augmentation. Normal color Doppler. Posterior Tibial Vein: Normal compression, spontaneity and augmentation. Normal color Doppler. Peroneal Vein: Normal compression, spontaneity and augmentation. Normal color Doppler. LEFT LEG Common Femoral Vein: Normal compression, spontaneity and augmentation. Normal color Doppler. Common Femoral Vein/Greater Saphenous Junction: Normal compression, spontaneity and augmentation. Normal color Doppler. Femoral Proximal: Normal compression, spontaneity and augmentation. Normal color Doppler. Femoral Middle: Positive for DVT. Femoral Distal (more content not included)... Normal [facility] CNOVon 03-17-2024 CNOV Office Visit (UCWSTR) ---- LATONYA ELDER ([id number]) 1970 M Date Time Provider Department 03/17/24 7:30 AM RAD [facility] During your visit today, we recorded the following information about you: Temperature Pulse Respiration Blood pressure 97.2 degrees 72/minute 16/minute 162/90 Weight 107.9 kg Rad Renee APRN.PERMIT COORDINATOR 03/17/2024 7:43 AM Signed This note was created using Fobbler. Subjective Latonya Elder is a 53 year old male. HPI For the last three days pt awoke with an itchy left eye with matting. No trauma, does not wear contacts. No known contact. Review of Systems Constitutional: Negative for fatigue and fever. HENT: Negative for congestion. Eyes: Positive for discharge, redness and itching. Negative for pain. Respiratory: Negative for choking. Neurological: Negative for headaches. Objective BP 162/90 Pulse 72 Temp 36.2 ?C (97.2 ?F) Resp 16 Wt 107.9 kg (237 lb 14 oz) SpO2 98% Physical Exam Vitals and nursing note reviewed. Constitutional: General: He is not in acute distress. Appearance: Normal appearance. He is not ill-appearing. HENT: Head: Normocephalic. Mouth/Throat: Mouth: Mucous membranes are moist. Eyes: Comments: Injected left eye Cardiovascular: Rate and Rhythm: Normal rate and regular rhythm. Pulmonary: Effort: Pulmonary effort is normal. Breath sounds: Normal breath sounds. Musculoskeletal: General: Normal range of motion. Cervical back: Normal range of motion. Skin: General: Skin is warm and dry. Neurological: General: No focal deficit present. Mental Status: He is alert. Psychiatric: Mood and Affect: Mood normal. Behavior: Behavior normal. Assessment and Plan ASSESSMENT/PLAN: 1. Bacterial conjunctivitis - ICD9: 372.39, 041.9, ICD10: H10.9 - see medication orders - course and contagiousness issues discussed, including hand washing. - Instructed to call if high fever, development of periorbital redness or swelling, eye pain, visual changes, concerns or if symptoms persist. - POLYMYXIN B SULFATE 10,000 UNIT-TRIMETHOPRIM 1 MG/ML EYE DROPS JOSSELIN Hardwick Tim, APRN.CNP 03/17/2024 7:41 AM Signed CONJUNCTIVITIS GENERAL INFORMATION: Conjunctivitis is also known as pink eye. It is an irritation of the underside of the eyelid and the white part of the eye. Conjunctivitis can be caused by infection, chemical irritation, or allergy. If infectious, it is very contagious. INSTRUCTIONS: The doctor has prescribed antibiotic drops or ointment. Use them as prescribed. Do not touch the dropper to the eye. Throw out the medication after completing treatment. If the doctor only prescribed the medication to be placed in one eye, and the other eye starts to bother you with the same symptoms, you may treat it in the same fashion. To ease discomfort, apply a warm or cool clean washcloth to your eye several times a day for 10 to 20 minutes. Gently wipe away discharge from the eyes with tissues. Wash your hands often with soap and use paper towels to dry them. Do not share towels, washcloths, or pillows. This could spread infection. Do not use eye make-up until the infection has resolved. Keep contact lenses out of eyes until the irritation is gone. Discard any eye make-up which you may have contaminated before the infection was diagnosed, and any eye make-up older than one year. Children should not return to school or daycare until the eye is no longer pink. Do not drive or operate machinery if your vision is blurred. Wear sunglasses if your eyes are sensitive to the light. CONTACT YOUR DOCTOR IF YOU OR YOUR CHILD NOTICE: *The eye is still pink 3 days after starting treatment with medicine. *Pain in the eye increases. *The redness is spreading. *Vision becomes blurred. *You have a temperature over 100.5 F (38 C). Allergies As of Date: 03/17/2024 Noted Allergy Reaction BRILINTA (TICAGRELOR) 03/17/2024 12 - Shortness of Breath AMOXICILLIN 01/26/2015 11 - Vomiting CODEINE 01/26/2015 8 - GI Upset Date Reviewed: 03/17/2024 Reviewed by: Rad Renee APRN.PERMIT COORDINATOR - Fully Assessed Reason for Visit: Eye Problem [43] Cmt: left eye x 2 days, drainage and matting Primary Visit Diagnosis:Bacterial conjunctivitis [H10.9] Order(s):trimethopr im-polymyxin (POLYTRIM) 10,000 unit- 1 mg/mL ophthalmic solutionUse 1 Drop in the left eye four times daily.Disp: 10 mLRfl: 0 Prescriptions as of 03/17/2024 - trimethoprim-polymy leonor (POLYTRIM) 10,000 unit- 1 mg/mL ophthalmic solution Use 1 Drop in the left eye four times daily. - lisinopril (ZESTRIL, PRINIVIL) 20 mg tablet - albuterol HFA (VENTOLIN HFA) 90 mcg/actuation inhaler Inhale 2 Puffs as instructed every 4 hours as needed for Wheezing/Shortness of Breath. - Brompheniramine-Pse udoeph-DM (BROMFED DM) 2-30-10 mg/5 mL syrup Take 5 mL by mouth four times daily as needed (more content not included)... [facility] Basophil percentageOrdered B y: Anupam Zuleta on 02-08-2024 Hemoglobin (Bld) [Mass/Vol] 15.7 g/dL 13.0-16.[address] [facility] WBC (Bld) [#/Vol] 10.7 10*3/uL 4.4-11.0 [facility] Determination of erythrocyte mean corpuscular volume (MCV)Ordered By: Anupam Zuleta on 02-08-2024 MCV (RBC) [Entitic vol] 89.9 fL 80-94 [facility] Erythrocyte distribution wid th ratioOrdered By: Anupam Zuleta on 02-08-2024 Erythrocyte distribution width (RBC) [Ratio] 13.7 % 11.6-14.[address] [facility] Erythrocyte distribution wid th standard deviationOrdered By: Anupam Zuleta on 02-08-2024 Erythrocyte distribution width (RBC) [Entitic vol] 44.6 fL 35.1-43.[address] [facility] Hematocrit Auto (Bld) [Volum e fraction]Ordered By: Anupam Zuleta on 02-08-2024 Hematocrit (Bld) [Volume fraction] 48.3 % 40-[address] [facility] Laboratory - Hematology and Cell countsOrdered By: Anupam Zuleta on 02-08-2024 MCH (RBC) [Entitic mass] 29.2 pg 27.0-32.[address] [facility] MCHC (RBC) [Mass/Vol] 32.5 g/dL 32-36 [facility] Platelet mean volume (Bld) [Entitic vol] 10.4 fL 6.2-12.[address] [facility] Platelets (Bld) [#/Vol] 270 10*3/uL 150-[address] [facility] RBC Auto (Bld) [#/Vol]Ordere d By: Anupam Zuleta on 02-08-2024 RBC (Bld) [#/Vol] 5.37 10*6/uL 4.6-6.2 [facility] Gram stain for investigation of transfusion reactionOrdered By: Anupam Zuleta on 12-31-2023 Microscopic observation Gram stain Nom (Unsp spec) [facility] Microscopic observation Gram stain Nom (Unsp spec) [facility] Microbial respiratory cultur eOrdered By: Anupam Zuleta on 12-31-2023 Bacteria identified Respiratory culture Nom (Unsp spec) or Staphylococcus aureus isolated. [facility] Bacteria identified Respiratory culture Nom (Unsp spec) or Staphylococcus aureus isolated. [facility] Basophil percentageOrdered B y: Luis Villeda on 12-26-2023 Bilirubin [Mass/Vol] 0.90 mg/dL 0.20-1.00 [facility] Comment on above: For patients on eltr ombopag therapy, use of Dimension [place] TBIL is not recommended. Chloride [Moles/Vol] 107 mmol/L 98-107 [facility] Cholesterol [Mass/Vol] 178 mg/dL <200 [facility] Comment on above: <200 mg/dL Desirable 200-240 mg/dL Borderline >240 mg/dL High Risk Glucose [Mass/Vol] 76 mg/dL 74-106 [facility] Hemoglobin (Bld) [Mass/Vol] 15.0 g/dL 13.0-16.[address] [facility] Potassium [Moles/Vol] 3.5 mmol/L 3.5-5.1 [facility] Protein [Mass/Vol] 6.9 g/dL 6.4-8.2 [facility] Sodium [Moles/Vol] 138 mmol/L 136-145 [facility] Triglyceride [Mass/Vol] 140 mg/dL <199 [facility] Comment on above: The drugs N-Acetylcy steine and Metamizole may falsely depress this assay.Serum Triglycerides Reference Interval Normal <150 mg/dL Borderline high 150 - 199 mg/dL High 200 - 499 mg/dL Very High > or = 500 mg/dL WBC (Bld) [#/Vol] 11.5 10*3/uL 4.4-11.0 [facility] Determination of erythrocyte mean corpuscular volume (MCV)Ordered By: Luis Villeda on 12-26-2023 MCV (RBC) [Entitic vol] 88.0 fL 80-94 [facility] Erythrocyte distribution wid th ratioOrdered By: Luiskaron Villeda on 12-26-2023 Erythrocyte distribution width (RBC) [Ratio] 13.6 % 11.6-14.[address] [facility] Erythrocyte distribution wid th standard deviationOrdered By: Luis Ronal on 12-26-2023 Erythrocyte distribution width (RBC) [Entitic vol] 43.9 fL 35.1-43.[address] [facility] Hematocrit Auto (Bld) [Volum e fraction]Ordered By: Luis Ronal on 12-26-2023 Hematocrit (Bld) [Volume fraction] 44.8 % 40-[address] [facility] Laboratory - Chemistry and C hemistry - challengeOrdered By: Luis Villeda on 12-26-2023 Albumin/Globulin [Mass ratio] 1.0 {ratio} 0.9-2.[address] [facility] ALP [Catalytic activity/Vol] 107 U/L 45-[address] [facility] ALT [Catalytic activity/Vol] 33 U/L 16-[address] [facility] Cholesterol in HDL [Mass/Vol] 39 mg/dL >[address] [facility] Comment on above: The drugs N-Acetylcy steine and Metamizole may falsely depress this assay. Reference Range HDL <40 mg/dL Low HDL Cholesterol HDL >or= 60 mg/dL High HDL Cholesterol Cholesterol in LDL [Mass/Vol] 111 mg/dL 0-[address] [facility] CO2 [Moles/Vol] 23.0 mmol/L 21.0-32.[address] [facility] Globulin (S) [Mass/Vol] 3.4 g/dL 2.2-4.2 [facility] Urea nitrogen/Creatinine [Mass ratio] 14.5 mg/mg 10-[address] [facility] Laboratory - Hematology and Cell countsOrdered By: Luis Villeda on 12-26-2023 MCH (RBC) [Entitic mass] 29.5 pg 27.0-32.[address] [facility] MCHC (RBC) [Mass/Vol] 33.5 g/dL 32-36 [facility] Platelet mean volume (Bld) [Entitic vol] 10.6 fL 6.2-12.[address] [facility] Platelets (Bld) [#/Vol] 235 10*3/uL 150-[address] [facility] No Panel InformationOrdered By: Maldonado Whitt on 12-26-2023 D-Dimer Quantitative (PE/DVT) < 0.27 FEU/ug/m 0.27-0.[address] [facility] Comment on above: NORMAL D-Dimer level (<0.50) indicates no DVT or PE. No Panel InformationOrdered By: Luis Villeda on 12-26-2023 Estimated Creatinine Clearance Calc 121.06 ml/min [facility] Estimated GFR (MDRD) Amer 125 mL/min >[address] [facility] Comment on above: GFR Calc Estimated GFR (MDRD) Non-Af Amer 103 mL/min >[address] [facility] Comment on above: Non- GFR Calc VLDL Cholesterol 28 mg/dL 5-[address] [facility] No Panel InformationOrdered By: Nasim Leblanc on 12-26-2023 Ethyl Alcohol Level < 3.0 mg/dL [facility] Comment on above: The serum:whole bloo d ethanol ratio is approximately 1.14and varies slightly with hematocrit. Medical Alcohol reference interval and critical value innon-tolerant individuals; 50 - 100 Impairment 100 Intoxication 100 - 250 Severe Poisoning 250 - 400 Deep/possible fatal coma RBC Auto (Bld) [#/Vol]Ordere d By: Luis Villeda on 12-26-2023 RBC (Bld) [#/Vol] 5.09 10*6/uL 4.6-6.2 [facility] Serum or plasma calcium jessica urement (mass/volume)Ordered By: Luis Villeda on 12-26-2023 Calcium [Mass/Vol] 9.4 mg/dL 8.5-10.1 [facility] Serum or plasma creatinine m easurement (mass/volume)Ordered By: Luis Villeda on 12-26-2023 Creatinine [Mass/Vol] 0.83 mg/dL 0.70-1.30 [facility] Comment on above: The validity of the calculated GFR & GFRAA in patients over 70 years has not been determined. Clinical correlation is essential. Serum or plasma urea nitroge n measurement (mass/volume)Ordered By: Luis Villeda on 12-26-2023 Urea nitrogen [Mass/Vol] 12 mg/dL 7-[address] [facility] Thin prep Papanicolaou smear with manual screeningOrdered By: Luis Villeda on 12-26-2023 Thin prep Papanicolaou smear with manual screening 3.5 g/dL 3.2-5.[address] [facility] Thin prep Papanicolaou smear with manual screening 16 U/L 15-[address] [facility] Thin prep Papanicolaou smear with manual screening 8 5-[address] [facility] Thin prep Papanicolaou smear with manual screeningOrdered By: Maldonado Whitt on 12-26-2023 Thin prep Papanicolaou smear with manual screening 86 mg/dL 74-[address] [facility] Comment on above: MANAGEMENT OF PATIEN T CARE PER NURSING PROTOCOL Absolute lymphocyte countOrd ered By: Mary Lewis on 12-25-2023 Lymphocytes Auto (Unsp spec) [#/Vol] 2.00 10*3/uL 0.83-4.[address] [facility] Activated partial thrombopla stin time (aPTT) in platelet poor plasma by coagulation aOrdered By: Mary Lewis on 12-25-2023 aPTT Coag (PPP) [Time] 31.7 s 24.1-36.2 [facility] Automated lymphocyte count a s percentage of total leukocytesOrdered By: Mary Lewis on 12-25-2023 Lymphocytes/100 WBC Auto (Unsp spec) 14.1 % 19-[address] [facility] Basophil percentageOrdered B y: Mary Lewis on 12-25-2023 Basophils/100 WBC (Bld) 0.4 % 0-1 [facility] Eosinophils/100 WBC (Bld) 1.0 % 0-[address] [facility] Monocytes/100 WBC (Bld) 8.8 % 0-10 [facility] Neutrophils (Bld) [#/Vol] 10.6 10*3/uL 2.0-7.[address] [facility] Neutrophils/100 WBC (Bld) 75.1 % 47-[address] [facility] Immature granulocytes/100 WB C Auto (Bld)Ordered By: aMry Lewis on 12-25-2023 Immature granulocytes/100 WBC (Bld) 0.600 % 0.0-0.[address] [facility] Comment on above: IG% - Immature Granu locytes (promyelocytes, myelocytes and metamyelocytes) > 1% indicates that a LEFT SHIFT is Present. Laboratory - Chemistry and C hemistry - challengeOrdered By: Nasim Leblanc on 12-25-2023 Amylase [Catalytic activity/Vol] 24 U/L 15-[address] [facility] Laboratory - Chemistry and C hemistry - challengeOrdered By: Mary Lewis on 12-25-2023 Magnesium [Mass/Vol] 1.8 mg/dL 1.6-2.6 [facility] Laboratory - Hematology and Cell countsOrdered By: Mary Lewis on 12-25-2023 Nucleated RBC/100 WBC (Bld) [Ratio] 0 % 0-[address] [facility] No Panel InformationOrdered By: Maldonado Whitt on 12-25-2023 Activated Clotting Time 228 sec 74-137 [facility] Activated Clotting Time 228 sec 74-137 [facility] Serum or plasma thyroid stim ulating hormone (TSH) measurement (units/volume)Ordered By: Mary Lewis on 12-25-2023 TSH Qn 1.74 uIU/mL 0.358-3.[address] [facility] Whole blood hemoglobin A1c/t otal hemoglobin ratio (mass fraction)Ordered By: Mary Lewis on 12-25-2023 HbA1c (Bld) [Mass fraction] 7.3 % 3.8-5.[address] [facility] Comment on above: Normal < 5.7 % Predi abetic 5.7 - 6.4 % Diabetic >or= 6.5 % Please note range changes. Absolute lymphocyte countOrd ered By: Pollo Bond on 12-24-2023 Lymphocytes Auto (Unsp spec) [#/Vol] 2.44 10*3/uL 0.83-4.[address] [facility] Activated partial thrombopla stin time (aPTT) in platelet poor plasma by coagulation aOrdered By: Pollo Bond on 12-24-2023 aPTT Coag (PPP) [Time] 24.7 s 24.1-36.2 [facility] Automated lymphocyte count a s percentage of total leukocytesOrdered By: Pollo Bond on 12-24-2023 Lymphocytes/100 WBC Auto (Unsp spec) 20.4 % 19-[address] [facility] Basophil percentageOrdered B y: Pollo Bond on 12-24-2023 Basophils/100 WBC (Bld) 0.7 % 0-1 [facility] Chloride [Moles/Vol] 104 mmol/L 98-107 [facility] Eosinophils/100 WBC (Bld) 0.9 % 0-[address] [facility] Glucose [Mass/Vol] 286 mg/dL 74-106 [facility] Comment on above: Glucose result great er than or equal to 200 mg/dLsuggests DIABETES MELLITUS per A.D.A. criteria. Hemoglobin (Bld) [Mass/Vol] 17.3 g/dL 13.0-16.[address] [facility] Monocytes/100 WBC (Bld) 10.0 % 0-10 [facility] Neutrophils (Bld) [#/Vol] 8.1 10*3/uL 2.0-7.[address] [facility] Neutrophils/100 WBC (Bld) 67.1 % 47-[address] [facility] Potassium [Moles/Vol] 3.6 mmol/L 3.5-5.1 [facility] Sodium [Moles/Vol] 141 mmol/L 136-145 [facility] WBC (Bld) [#/Vol] 12.0 10*3/uL 4.4-11.0 [facility] Determination of erythrocyte mean corpuscular volume (MCV)Ordered By: Pollo Bond on 12-24-2023 MCV (RBC) [Entitic vol] 88.3 fL 80-94 [facility] Erythrocyte distribution wid th ratioOrdered By: Pollo Bond on 12-24-2023 Erythrocyte distribution width (RBC) [Ratio] 13.5 % 11.6-14.[address] [facility] Erythrocyte distribution wid th standard deviationOrdered By: Pollo Bond on 12-24-2023 Erythrocyte distribution width (RBC) [Entitic vol] 43.1 fL 35.1-43.[address] [facility] Hematocrit Auto (Bld) [Volum e fraction]Ordered By: Pollo Bond on 12-24-2023 Hematocrit (Bld) [Volume fraction] 51.4 % 40-[address] [facility] Immature granulocytes/100 WB C Auto (Bld)Ordered By: Pollo Bond on 12-24-2023 Immature granulocytes/100 WBC (Bld) 0.900 % 0.0-0.[address] [facility] Comment on above: IG% - Immature Granu locytes (promyelocytes, myelocytes and metamyelocytes) > 1% indicates that a LEFT SHIFT is Present. International normalized rat io (INR) calculationOrdered By: Pollo Bond on 12-24-2023 INR Coag (PPP) [Relative time] 0.9 {INR} [facility] Laboratory - Chemistry and C hemistry - challengeOrdered By: Pollo Bond on 12-24-2023 CO2 [Moles/Vol] 28.0 mmol/L 21.0-32.[address] [facility] Natriuretic peptide B (Bld) [Mass/Vol] 103.6 pg/mL 0-[address] [facility] Urea nitrogen/Creatinine [Mass ratio] 12.4 mg/mg 10-[address] [facility] Laboratory - CoagulationOrde red By: Pollo Bond on 12-24-2023 PT Coag (PPP) [Time] 12.0 s 11.7-14.9 [facility] Laboratory - Hematology and Cell countsOrdered By: Pollo Bond on 12-24-2023 MCH (RBC) [Entitic mass] 29.7 pg 27.0-32.[address] [facility] MCHC (RBC) [Mass/Vol] 33.7 g/dL 32-36 [facility] Nucleated RBC/100 WBC (Bld) [Ratio] 0 % 0-[address] [facility] Platelets (Bld) [#/Vol] 274 10*3/uL 150-[address] [facility] No Panel InformationOrdered By: Mary Lewis on 12-24-2023 Troponin I High Sensitivity 387 pg/mL 3.0-78.[address] [facility] Comment on above: Critical Result(s) C alled at: 21:25:09 12/24/2023 by: ROSARIO GONZALES TO LUÍS DAWSON. Results read back by same. Please Note: New Test Units and Gender Specific Reference Ranges. For more information see Policy Stat Procedure [place] High Sensitivity Troponin (TNIH) and attachments. No Panel InformationOrdered By: Pollo Bond on 12-24-2023 Troponin I High Sensitivity 280 pg/mL 3.0-78.[address] [facility] Comment on above: Critical Result(s) C alled at: 15:17:34 12/24/2023 by: Magda Irving to Moisés. Results read back by same. Please Note: New Test Units and Gender Specific Reference Ranges. For more information see Policy Stat Procedure [place] High Sensitivity Troponin (TNIH) and attachments. D-Dimer Quantitative (PE/DVT) 0.47 FEU/ug/m 0.27-0.[address] [facility] Comment on above: NORMAL D-Dimer level (<0.50) indicates no DVT or PE. Estimated GFR (MDRD) Amer 88 mL/min >[address] [facility] Comment on above: GFR Calc Estimated GFR (MDRD) Non-Af Amer 72 mL/min >[address] [facility] Comment on above: Non- GFR Calc Platelet mean volume James-Ec ker (Bld) [Entitic vol]Ordered By: Pollo Bond on 12-24-2023 Platelet mean volume (Bld) [Entitic vol] 10.9 fL 6.2-12.[address] [facility] RBC Auto (Bld) [#/Vol]Ordere d By: Pollo Bond on 12-24-2023 RBC (Bld) [#/Vol] 5.82 10*6/uL 4.6-6.2 [facility] Serum or plasma calcium jessica urement (mass/volume)Ordered By: Pollo Bond on 12-24-2023 Calcium [Mass/Vol] 9.8 mg/dL 8.5-10.1 [facility] Serum or plasma creatinine m easurement (mass/volume)Ordered By: Pollo Bond on 12-24-2023 Creatinine [Mass/Vol] 1.13 mg/dL 0.70-1.30 [facility] Comment on above: The validity of the calculated GFR & GFRAA in patients over 70 years has not been determined. Clinical correlation is essential. Serum or plasma urea nitroge n measurement (mass/volume)Ordered By: Pollo Bond on 12-24-2023 Urea nitrogen [Mass/Vol] 14 mg/dL 7-[address] [facility] Thin prep Papanicolaou smear with manual screeningOrdered By: Pollo Bond on 12-24-2023 Thin prep Papanicolaou smear with manual screening 9 5-[address] [facility] Absolute lymphocyte countOrd ered By: Luis York on 11-21-2023 Lymphocytes Auto (Unsp spec) [#/Vol] 2.69 10*3/uL 0.83-4.[address] [facility] Basophil percentageOrdered B y: Luis York on 11-21-2023 Basophils/100 WBC (Bld) 0.5 % 0-1 [facility] Chloride [Moles/Vol] 107 mmol/L 98-107 [facility] Eosinophils/100 WBC (Bld) 2.0 % 0-[address] [facility] Glucose [Mass/Vol] 162 mg/dL 74-106 [facility] Comment on above: Fasting Glucose resu lt greater than or equal to 126 mg/dL suggests DIABETES MELLITUS per A.D.A. criteria. Neutrophils (Bld) [#/Vol] 6.6 10*3/uL 2.0-7.[address] [facility] Neutrophils/100 WBC (Bld) 62.0 % 47-[address] [facility] Potassium [Moles/Vol] 3.8 mmol/L 3.5-5.1 [facility] Sodium [Moles/Vol] 139 mmol/L 136-145 [facility] WBC (Bld) [#/Vol] 10.7 10*3/uL 4.4-11.0 [facility] Blood erythrocytes count (nu mber/volume)Ordered By: Luis York on 11-21-2023 RBC (Bld) [#/Vol] 4.94 10*6/uL 4.6-6.2 [facility] Blood hemoglobin measurement (mass/volume)Ordered By: Luis York on 11-21-2023 Hemoglobin (Bld) [Mass/Vol] 15.0 g/dL 13.0-16.[address] [facility] Blood lymphocytes/100 leukoc ytesOrdered By: Luis York on 11-21-2023 Lymphocytes/100 WBC (Bld) 25.2 % 19-[address] [facility] Blood monocytes/100 leukocyt esOrdered By: Luis York on 11-21-2023 Monocytes/100 WBC (Bld) 9.8 % 0-10 [facility] Blood platelet mean volumeOr dered By: Luis York on 11-21-2023 Platelet mean volume (Bld) [Entitic vol] 10.0 fL 6.2-12.[address] [facility] Determination of erythrocyte mean corpuscular volume (MCV)Ordered By: Luis York on 11-21-2023 MCV (RBC) [Entitic vol] 88.3 fL 80-94 [facility] Hematocrit Auto (Bld) [Volum e fraction]Ordered By: Luis York on 11-21-2023 Hematocrit (Bld) [Volume fraction] 43.6 % 40-[address] [facility] Laboratory - Chemistry and C hemistry - challengeOrdered By: Luis York on 11-21-2023 CO2 [Moles/Vol] 28.0 mmol/L 21.0-32.[address] [facility] Urea nitrogen/Creatinine [Mass ratio] 16.7 mg/mg 10-[address] [facility] Laboratory - Hematology and Cell countsOrdered By: Luis York on 11-21-2023 Erythrocyte distribution width (RBC) [Entitic vol] 43.4 fL 35.1-43.[address] [facility] Erythrocyte distribution width (RBC) [Ratio] 13.3 % 11.6-14.[address] [facility] Immature granulocytes/100 WBC (Bld) 0.500 % 0.0-0.[address] [facility] Comment on above: IG% - Immature Granu locytes (promyelocytes, myelocytes and metamyelocytes) > 1% indicates that a LEFT SHIFT is Present. MCH (RBC) [Entitic mass] 30.4 pg 27.0-32.[address] [facility] Nucleated RBC/100 WBC (Bld) [Ratio] 0 % 0-[address] [facility] MCHC Auto (RBC) [Mass/Vol]Or dered By: Luis York on 11-21-2023 MCHC (RBC) [Mass/Vol] 34.4 g/dL 32-36 [facility] No Panel InformationOrdered By: Luis York on 11-21-2023 Troponin I High Sensitivity 40 pg/mL 3.0-78.[address] [facility] Comment on above: Please Note: New Sirisha t Units and Gender Specific Reference Ranges. For more information see Policy Stat Procedure [place] High Sensitivity Troponin (TNIH) and attachments. Estimated Creatinine Clearance Calc 73.33 ml/min [facility] Estimated GFR (MDRD) Amer 87 mL/min >[address] [facility] Comment on above: GFR Calc Estimated GFR (MDRD) Non-Af Amer 72 mL/min >[address] [facility] Comment on above: Non- GFR Calc Platelets bldOrdered By: Ousmane York on 11-21-2023 Platelets (Bld) [#/Vol] 260 10*3/uL 150-[address] [facility] Serum or plasma calcium jessica urement (mass/volume)Ordered By: Luis York on 11-21-2023 Calcium [Mass/Vol] 9.4 mg/dL 8.5-10.1 [facility] Serum or plasma creatinine m easurement (mass/volume)Ordered By: Luis York on 11-21-2023 Creatinine [Mass/Vol] 1.14 mg/dL 0.70-1.30 [facility] Comment on above: The validity of the calculated GFR & GFRAA in patients over 70 years has not been determined. Clinical correlation is essential. Serum or plasma urea nitroge n measurement (mass/volume)Ordered By: Luis York on 11-21-2023 Urea nitrogen [Mass/Vol] 19 mg/dL 7-[address] [facility] Thin prep Papanicolaou smear with manual screeningOrdered By: Luis York on 11-21-2023 Thin prep Papanicolaou smear with manual screening 4 5-[address] [facility] Absolute lymphocyte counton 06-26-2022 Lymphocytes Auto (Unsp spec) [#/Vol] 3.53 10*3/uL 0.83-4.[address] [facility] Work Phone: Lymphocytes Auto (Unsp spec) [#/Vol] 3.42 10*3/uL 0.83-4.[address] [facility] Work Phone: Basophil percentageon 06-26- 2021 Basophils/100 WBC (Bld) 0.6 % 0-1 [facility] Work Phone: Bilirubin [Mass/Vol] 0.50 mg/dL 0.20-1.00 [facility] Work Phone: Comment on above: For patients on eltr ombopag therapy, use of Dimension [place] TBIL is not recommended. Chloride [Moles/Vol] 106 mmol/L 98-107 [facility] Work Phone: Eosinophils/100 WBC (Bld) 2.3 % 0-[address] [facility] Work Phone: Glucose [Mass/Vol] 157 mg/dL 74-106 [facility] Work Phone: Comment on above: Fasting Glucose resu lt greater than or equal to 126 mg/dL suggests DIABETES MELLITUS per A.D.A. criteria. Neutrophils (Bld) [#/Vol] 7.3 10*3/uL 2.0-7.[address] [facility] Work Phone: Neutrophils/100 WBC (Bld) 58.6 % 47-[address] [facility] Work Phone: Potassium [Moles/Vol] 4.6 mmol/L 3.5-5.1 [facility] Work Phone: Comment on above: Moderate Hemolysis, Result may be falsely increased. Protein [Mass/Vol] 7.1 g/dL 6.4-8.2 [facility] Work Phone: Sodium [Moles/Vol] 138 mmol/L 136-145 [facility] Work Phone: WBC (Bld) [#/Vol] 12.5 10*3/uL 4.4-11.0 [facility] Work Phone: Basophils/100 WBC (Bld) 0.5 % 0-1 [facility] Work Phone: Chloride [Moles/Vol] 107 mmol/L 98-107 [facility] Work Phone: Eosinophils/100 WBC (Bld) 2.1 % 0-[address] [facility] Work Phone: Glucose [Mass/Vol] 186 mg/dL 74-106 [facility] Work Phone: Comment on above: Fasting Glucose resu lt greater than or equal to 126 mg/dL suggests DIABETES MELLITUS per A.D.A. criteria. Neutrophils (Bld) [#/Vol] 8.0 10*3/uL 2.0-7.[address] [facility] Work Phone: Neutrophils/100 WBC (Bld) 60.9 % 47-[address] [facility] Work Phone: Potassium [Moles/Vol] 3.8 mmol/L 3.5-5.1 [facility] Work [facility]: Sodium [Moles/Vol] 140 mmol/L 136-145 [facility] Work Phone: WBC (Bld) [#/Vol] 13.1 10*3/uL 4.4-11.0 [facility] Work Phone: Blood erythrocytes count (nu mber/volume)on 06-26-2022 RBC (Bld) [#/Vol] 4.86 10*6/uL 4.6-6.2 [facility] Work Phone: RBC (Bld) [#/Vol] 4.94 10*6/uL 4.6-6.2 [facility] Work Phone: Blood hemoglobin measurement (mass/volume)on 06-26-2022 Hemoglobin (Bld) [Mass/Vol] 14.8 g/dL 13.0-16.[address] [facility] Work Phone: Hemoglobin (Bld) [Mass/Vol] 15.6 g/dL 13.0-16.[address] [facility] Work Phone: Blood lymphocytes/100 leukoc yteson 06-26-2022 Lymphocytes/100 WBC (Bld) 28.3 % 19-[address] [facility] Work Phone: [phone] Lymphocytes/100 WBC (Bld) 26.1 % 19-[address] [facility] Work Phone: Blood monocytes/100 leukocyt eson 06-26-2022 Monocytes/100 WBC (Bld) 9.6 % 0-10 [facility] Work Phone: [phone] Monocytes/100 WBC (Bld) 9.7 % 0-10 [facility] Work Phone: Blood platelet mean volumeon 06-26-2022 Platelet mean volume (Bld) [Entitic vol] 10.5 fL 6.2-12.[address] [facility] Work Phone: [phone] Platelet mean volume (Bld) [Entitic vol] 10.1 fL 6.2-12.[address] [facility] Work Phone: [phone] Determination of erythrocyte mean corpuscular volume (MCV)on 06-26-2022 MCV (RBC) [Entitic vol] 90.1 fL 80-94 [facility] Work Phone: [phone] MCV (RBC) [Entitic vol] 89.1 fL 80-94 [facility] Work Phone: [phone] Glucose Glucometer (dC) [M ass/Vol]on 06-26-2022 Glucose [Mass/Vol] 217 mg/dL 74-106 [facility] Work Phone: Comment on above: MANAGEMENT OF PATIEN T CARE PER NURSING PROTOCOL Hematocrit Auto (Bld) [Volum e fraction]on 06-26-2022 Hematocrit (Bld) [Volume fraction] 43.8 % 40-[address] [facility] Work Phone: [phone] Hematocrit (Bld) [Volume fraction] 44.0 % 40-[address] [facility] Work Phone: INR in Blood by Coagulation assayon 06-26-2022 INR Coag (Bld) [Relative time] 0.9 {INR} [facility] Work Phone: [phone] Laboratory - Chemistry and C hemistry - challengeon 06-26-2022 ALP [Catalytic activity/Vol] 84 U/L 45-[address] [facility] Work Phone: [phone] ALT [Catalytic activity/Vol] 22 U/L 16-[address] [facility] Work Phone: [phone] CO2 [Moles/Vol] 27.0 mmol/L 21.0-32.[address] [facility] Work Phone: Globulin (S) [Mass/Vol] 3.9 g/dL 2.2-4.2 [facility] Work Phone: Urea nitrogen/Creatinine [Mass ratio] 19.6 mg/mg 10- [facility] Work Phone: [phone] CO2 [Moles/Vol] 28.0 mmol/L 21.0-32.[address] [facility] Work Phone: [phone] Magnesium [Mass/Vol] 2.1 mg/dL 1.6-2.6 [facility] Work Phone: Urea nitrogen/Creatinine [Mass ratio] 16.5 mg/mg 10-[address] [facility] Work Phone: Laboratory - Coagulationon 0 06-26-2022 aPTT Coag (Bld) [Time] 23.9 s 24.1-36.2 [facility] Work Phone: PT Coag (PPP) [Time] 11.8 s 11.7-14.9 [facility] Work Phone: Laboratory - Hematology and Cell countson 06-26-2022 Erythrocyte distribution width (RBC) [Entitic vol] 45.3 fL 35.1-43.[address] [facility] Work Phone: [phone] Erythrocyte distribution width (RBC) [Ratio] 13.8 % 11.6-14.[address] [facility] Work Phone: Immature granulocytes/100 WBC (Bld) 0.600 % 0.0-0.[address] [facility] Work Phone: [phone] Comment on above: IG% - Immature Granu locytes (promyelocytes, myelocytes and metamyelocytes) > 1% indicates that a LEFT SHIFT is Present. MCH (RBC) [Entitic mass] 30.5 pg 27.0-32.[address] [facility] Work Phone: [phone] Nucleated RBC/100 WBC (Bld) [Ratio] 0 % 0-[address] [facility] Work Phone: [phone] Erythrocyte distribution width (RBC) [Entitic vol] 43.9 fL 35.1-43.[address] [facility] Work Phone: [phone] Erythrocyte distribution width (RBC) [Ratio] 13.4 % 11.6-14.[address] [facility] Work Phone: [phone] Immature granulocytes/100 WBC (Bld) 0.700 % 0.0-0.[address] [facility] Work Phone: [phone] Comment on above: IG% - Immature Granu locytes (promyelocytes, myelocytes and metamyelocytes) > 1% indicates that a LEFT SHIFT is Present. MCH (RBC) [Entitic mass] 31.6 pg 27.0-32.[address] [facility] Work Phone: [phone] Nucleated RBC/100 WBC (Bld) [Ratio] 0 % 0-[address] [facility] Work Phone: [phone] MCHC Auto (RBC) [Mass/Vol]on 06-26-2022 MCHC (RBC) [Mass/Vol] 33.8 g/dL 32-36 [facility] Work Phone: [phone] MCHC (RBC) [Mass/Vol] 35.5 g/dL -36 [facility] Work Phone: [phone] No Panel Informationon 06-26 Estimated Creatinine Clearance Calc 98.28 ml/min [facility] Work Phone: [phone] Estimated GFR (MDRD) Amer 119 mL/min >[address] [facility] Work Phone: Comment on above: GFR Calc Estimated GFR (MDRD) Non-Af Amer 99 mL/min >[address] [facility] Work Phone: Comment on above: Non- GFR Calc Troponin I High Sensitivity 127 pg/mL 3.0-78.[address] [facility] Work Phone: Comment on above: Critical Result(s) C alled at: 07:54:30 06/26/2022 by: Magda Melvin. Results read back by same. Please Note: New Test Units and Gender Specific Reference Ranges. For more information see Policy Stat Procedure [place] High Sensitivity Troponin (TNIH) and attachments. Troponin I High Sensitivity 118 pg/mL 3.0-78.[address] [facility] Work Phone: Comment on above: Please Note: New Sirisha t Units and Gender Specific Reference Ranges. For more information see Policy Stat Procedure [place] High Sensitivity Troponin (TNIH) and attachments. Estimated Creatinine Clearance Calc 78.44 ml/min [facility] Work Phone: Estimated GFR (MDRD) Amer 92 mL/min >[address] [facility] Work Phone: Comment on above: GFR Calc Estimated GFR (MDRD) Non-Af Amer 76 mL/min >[address] [facility] Work Phone: Comment on above: Non- GFR Calc Platelets bldon 06-26-2022 Platelets (Bld) [#/Vol] 239 10*3/uL 150-[address] [facility] Work Phone: Platelets (Bld) [#/Vol] 221 10*3/uL 150-[address] [facility] Work Phone: [phone] Serum or plasma albumin jessica urement (mass/volume)on 06-26-2022 Albumin [Mass/Vol] 3.2 g/dL 3.2-5.0 [facility] Work Phone: [phone] Serum or plasma albumin/glob ulin mass ratioon 06-26-2022 Albumin/Globulin [Mass ratio] 0.8 {ratio} 0.9-2.[address] [facility] Work Phone: Serum or plasma calcium jessica urement (mass/volume)on 06-26-2022 Calcium [Mass/Vol] 8.4 mg/dL 8.5-10.1 [facility] Work Phone: [phone] Calcium [Mass/Vol] 9.2 mg/dL 8.5-10.1 [facility] Work Phone: [phone] Serum or plasma creatinine m easurement (mass/volume)on 06-26-2022 Creatinine [Mass/Vol] 0.87 mg/dL 0.70-1.30 [facility] Work Phone: [phone] Comment on above: The validity of the calculated GFR & GFRAA in patients over 70 years has not been determined. Clinical correlation is essential. Creatinine [Mass/Vol] 1.09 mg/dL 0.70-1.30 [facility] Work Phone: Comment on above: The validity of the calculated GFR & GFRAA in patients over 70 years has not been determined. Clinical correlation is essential. Serum or plasma urea nitroge n measurement (mass/volume)on 06-26-2022 Urea nitrogen [Mass/Vol] 17 mg/dL 7-[address] [facility] Work Phone: [phone] Urea nitrogen [Mass/Vol] 18 mg/dL 7-[address] [facility] Work Phone: [phone] Thin prep Papanicolaou smear with manual screeningon 06-26-2022 Thin prep Papanicolaou smear with manual screening 31 U/L 15-[address] [facility] Work Phone: [phone] Comment on above: Moderate Hemolysis, Result may be falsely increased. Thin prep Papanicolaou smear with manual screening 5 5-[address] [facility] Work Phone: [phone] Thin prep Papanicolaou smear with manual screening 5 5-[address] [facility] Work Phone: [phone] Absolute lymphocyte counton 04-27-2022 Lymphocytes Auto (Unsp spec) [#/Vol] 3.16 10*3/uL 0.83-4.[address] [facility] Work Phone: [phone] Basophil percentageon 2021 Basophils/100 WBC (Bld) 0.3 % 0-1 [facility] Work Phone: Chloride [Moles/Vol] 102 mmol/L 98-107 [facility] Work Phone: Eosinophils/100 WBC (Bld) 1.3 % 0-[address] [facility] Work Phone: Glucose [Mass/Vol] 119 mg/dL 74-106 [facility] Work Phone: Comment on above: Fasting Glucose resu lt from 100 to 125 mg/dL suggests IMPAIRED HOMEOSTASIS per A.D.A. criteria. Neutrophils (Bld) [#/Vol] 9.8 10*3/uL 2.0-7.[address] [facility] Work Phone: Neutrophils/100 WBC (Bld) 66.9 % 47-[address] [facility] Work Phone: Potassium [Moles/Vol] 3.4 mmol/L 3.5-5.1 [facility] Work Phone: Sodium [Moles/Vol] 137 mmol/L 136-145 [facility] Work Phone: WBC (Bld) [#/Vol] 14.6 10*3/uL 4.4-11.0 [facility] Work Phone: Blood erythrocytes count (nu mber/volume)on 04-27-2022 RBC (Bld) [#/Vol] 4.94 10*6/uL 4.6-6.2 [facility] Work Phone: Blood hemoglobin measurement (mass/volume)on 04-27-2022 Hemoglobin (Bld) [Mass/Vol] 14.8 g/dL 13.0-16.[address] [facility] Work Phone: Blood lymphocytes/100 leukoc yteson 04-27-2022 Lymphocytes/100 WBC (Bld) 21.6 % 19-[address] [facility] Work Phone: Blood monocytes/100 leukocyt eson 04-27-2022 Monocytes/100 WBC (Bld) 9.2 % 0-10 [facility] Work Phone: Blood platelet mean volumeon 04-27-2022 Platelet mean volume (Bld) [Entitic vol] 10.0 fL 6.2-12.[address] [facility] Work Phone: Determination of erythrocyte mean corpuscular volume (MCV)on 04-27-2022 MCV (RBC) [Entitic vol] 89.3 fL 80-94 [facility] Work Phone: Glucose Glucometer (BldC) [M ass/Vol]on 04-27-2022 Glucose [Mass/Vol] 110 mg/dL 74-106 [facility] Work Phone: Comment on above: MANAGEMENT OF PATIEN T CARE PER NURSING PROTOCOL Hematocrit Auto (Bld) [Volum e fraction]on 04-27-2022 Hematocrit (Bld) [Volume fraction] 44.1 % 40-[address] [facility] Work Phone: INR in Blood by Coagulation assayon 04-27-2022 INR Coag (Bld) [Relative time] 1.0 {INR} [facility] Work Phone: Laboratory - Chemistry and C hemistry - challengeon 04-27-2022 CO2 [Moles/Vol] 30.0 mmol/L 21.0-32.[address] [facility] Work Phone: Urea nitrogen/Creatinine [Mass ratio] 16.2 mg/mg 10-[address] [facility] Work Phone: Laboratory - Coagulationon 0 04-27-2022 aPTT Coag (Bld) [Time] 24.8 s 24.1-36.2 [facility] Work Phone: PT Coag (PPP) [Time] 12.6 s 11.7-14.9 [facility] Work Phone: Laboratory - Hematology and Cell countson 04-27-2022 Erythrocyte distribution width (RBC) [Entitic vol] 45.2 fL 35.1-43.[address] [facility] Work Phone: Erythrocyte distribution width (RBC) [Ratio] 14.0 % 11.6-14.[address] [facility] Work Phone: Immature granulocytes/100 WBC (Bld) 0.700 % 0.0-0.[address] [facility] Work Phone: Comment on above: IG% - Immature Granu locytes (promyelocytes, myelocytes and metamyelocytes) > 1% indicates that a LEFT SHIFT is Present. MCH (RBC) [Entitic mass] 30.0 pg 27.0-32.[address] [facility] Work Phone: Nucleated RBC/100 WBC (Bld) [Ratio] 0 % 0-[address] [facility] Work Phone: MCHC Auto (RBC) [Mass/Vol]on 04-27-2022 MCHC (RBC) [Mass/Vol] 33.6 g/dL 32-36 [facility] Work Phone: No Panel Informationon 04-27 Troponin I High Sensitivity 79 pg/mL 3.0-78.[address] [facility] Work Phone: Comment on above: Please Note: New Sirisha t Units and Gender Specific Reference Ranges. For more information see Policy Stat Procedure [place] High Sensitivity Troponin (TNIH) and attachments. Estimated Creatinine Clearance Calc 86.36 ml/min [facility] Work Phone: Estimated GFR (MDRD) Amer 103 mL/min >[address] [facility] Work Phone: [phone] Comment on above: GFR Calc Estimated GFR (MDRD) Non-Af Amer 85 mL/min >[address] [facility] Work Phone: Comment on above: Non- GFR Calc Troponin I High Sensitivity 81 pg/mL 3.0-78.[address] [facility] Work Phone: Comment on above: Please Note: New Sirisha t Units and Gender Specific Reference Ranges. For more information see Policy Stat Procedure [place] High Sensitivity Troponin (TNIH) and attachments. Platelets bldon 04-27-2022 Platelets (Bld) [#/Vol] 270 10*3/uL 150-[address] [facility] Work Phone: Serum or plasma calcium jessica urement (mass/volume)on 04-27-2022 Calcium [Mass/Vol] 9.1 mg/dL 8.5-10.1 [facility] Work Phone: Serum or plasma creatinine m easurement (mass/volume)on 04-27-2022 Creatinine [Mass/Vol] 0.99 mg/dL 0.70-1.30 [facility] Work Phone: Comment on above: The validity of the calculated GFR & GFRAA in patients over 70 years has not been determined. Clinical correlation is essential. Serum or plasma urea nitroge n measurement (mass/volume)on 04-27-2022 Urea nitrogen [Mass/Vol] 16 mg/dL 7-[address] [facility] Work Phone: Thin prep Papanicolaou smear with manual screeningon 04-27-2022 Thin prep Papanicolaou smear with manual screening 5 5-[address] [facility] Work Phone: Laboratory - Hematology and Cell countson 03-30-2022 HbA1c (Bld) [Mass fraction] 6.1 % 4.2-6.[address] [facility] Work Phone: Laboratory - Hematology and Cell countson 02-15-2022 HbA1c (Bld) [Mass fraction] 6.0 % [facility] Work Phone: Basophil percentageon 2021 Bilirubin [Mass/Vol] 0.30 mg/dL 0.20-1.00 [facility] Work Phone: Comment on above: For patients on eltr ombopag therapy, use of Dimension [place] TBIL is not recommended. Cholesterol [Mass/Vol] 125 mg/dL <200 [facility] Work Phone: Comment on above: <200 mg/dL Desirable 200-240 mg/dL Borderline >240 mg/dL High Risk Protein [Mass/Vol] 7.5 g/dL 6.4-8.2 [facility] Work Phone: Triglyceride [Mass/Vol] 68 mg/dL [facility] Work Phone: Comment on above: The drugs N-Acetylcy steine and Metamizole may falsely depress this assay.Serum Triglycerides Reference Interval Normal <150 mg/dL Borderline high 150 - 199 mg/dL High 200 - 499 mg/dL Very High > or = 500 mg/dL Direct bilirubinon Bilirubin.direct [Mass/Vol] 0.11 mg/dL 0.00-0.[address] [facility] Work Phone: Laboratory - Chemistry and C hemistry - challengeon 01-18-2022 ALP [Catalytic activity/Vol] 89 U/L 45-[address] [facility] Work Phone: ALT [Catalytic activity/Vol] 21 U/L 16-[address] [facility] Work Phone: Globulin (S) [Mass/Vol] 4.0 g/dL 2.2-4.2 [facility] Work Phone: Serum or plasma albumin ejssica urement (mass/volume)on 01-18-2022 Albumin [Mass/Vol] 3.5 g/dL 3.2-5.0 [facility] Work Phone: Serum or plasma cholesterol in HDL measurement (mass/volume)on 01-18-2022 Cholesterol in HDL [Mass/Vol] 41 mg/dL [facility] Work Phone: Comment on above: The drugs N-Acetylcy steine and Metamizole may falsely depress this assay. Reference Range HDL <40 mg/dL Low HDL Cholesterol HDL >or= 60 mg/dL High HDL Cholesterol Serum or plasma cholesterol in VLDL measurement (mass/volume)on 01-18-2022 Cholesterol in VLDL [Mass/Vol] 14 mg/dL 5-[address] [facility] Work Phone: Serum or plasma low density lipoprotein (LDL) cholesterol measurement (mass/volume)on 01-18-2022 Cholesterol in LDL [Mass/Vol] 70 mg/dL 0-[address] [facility] Work Phone: [phone] Thin prep Papanicolaou smear with manual screeningon 01-18-2022 Thin prep Papanicolaou smear with manual screening 12 U/L 15-[address] [facility] Work Phone: Office Visit: Stephen 07-17-20 Dietary management education, guidance, and counseling (procedure) yes Invalid Interpretation Code [facility] Work Phone: [phone] Documentation of current medications (procedure) Done Invalid Interpretation Code [facility] Work Phone: [phone] Fall risk assessment No Invalid Interpretation Code [facility] Work Phone: [phone] Protein mass conc Done [facility] Work Phone: [phone] Lab Report: Basic Metabolic Profile (BMP)on 04-27-2017 Anion gap 4 mmol/L Low 5-15 [facility] Work Phone: [phone] Anion gap molar conc 4 mmol/L Low 5-15 [facility] Work Phone: [phone] BUN/Creatinine Ratio 14.3 RATIO Invalid Interpretation Code 10-20 [facility] Work Phone: [phone] Calcium 9.0 mg/dL Invalid Interpretation Code 8.5-10.1 [facility] Work Phone: [phone] Chloride 106 mmol/L Invalid Interpretation Code 98-107 [facility] Work Phone: [phone] CO2 32.0 mmol/L Invalid Interpretation Code 21.0-32.0 [facility] Work Phone: [phone] CO2 ppres (BldV) 32.0 mmol/L 21.0-32.0 [facility] Work Phone: [phone] Creatinine 1.12 mg/dL Invalid Interpretation Code 0.70-1.30 [facility] Work Phone: [phone] eGFR (non-black) 91 mL/min/{1.73_m2} Invalid Interpretation Code >60 [facility] Work Phone: [phone] eGFR (non-black) 75 mL/min/{1.73_m2} Invalid Interpretation Code >60 [facility] Work Phone: [phone] EST GFR - AA 91 mL/min >60 [facility] Work Phone: [phone] Glucose 101 mg/dL Invalid Interpretation Code 70-110 [employer] [employer] Work Phone: [phone] Glucose mass conc 101 mg/dL 70-110 [employer] Work Phone: [phone] Potassium 4.5 mmol/L Invalid Interpretation Code 3.5-5.1 [employer] Work Phone: [phone] Sodium 142 mmol/L Invalid Interpretation Code 136-145 [employer] Work Phone: [phone] Urea nitrogen 16 mg/dL Invalid Interpretation Code 7-18 [employer] Work Phone: [phone] Lab Report: Lipid Profileon 04-27-2017 Cholesterol 135 mg/dL Invalid Interpretation Code 200 [employer] Work Phone: [phone] HDL Cholesterol 35 mg/dL Low [employer] Work Phone: [phone] LDL Cholesterol 81 mg/dL Invalid Interpretation Code 0-130 [employer] Work Phone: [phone] Triglyceride 97 mg/dL Invalid Interpretation Code [employer] Work Phone: [phone] very low density lipoproteins 19 mg/dL Invalid Interpretation Code 5-40 [employer] Work Phone: [phone] Lab Report: Liver Profileon 04-27-2017 Alanine aminotransferase (ALT) 56 U/L Invalid Interpretation Code 12-78 [employer] Work Phone: [phone] Albumin 3.7 g/dL Invalid Interpretation Code 3.4-5.0 [facility] Phone: [phone] Alkaline phosphatase (ALP) 100 U/L Invalid Interpretation Code 45-117 [employer] Work Phone: [phone] ALP enzyme act/vol (Bld) 100 U/L 45-117 [employer] Work Phone: [phone] Aspartate aminotransferase (AST) 17 U/L Invalid Interpretation Code 15-37 [employer] Work Phone: [phone] Bilirubin (direct) 0.13 mg/dL Invalid Interpretation Code 0.00-0.30 [employer] Work Phone: [phone] Bilirubin (total) 0.70 mg/dL Invalid Interpretation Code 0.20-1.00 [employer] Work Phone: [phone] Globulin 3.6 g/dL High 2.3-3.5 [facility] Work Phone: [phone] Globulin mass conc (S) 3.6 g/dL High 2.3-3.5 [facility] Work Phone: [phone] Protein 7.3 g/dL Invalid Interpretation Code 6.4-8.2 [facility] Work Phone: [phone] Office Visiton 04-27-2017 Dietary management education, guidance, and counseling (procedure) yes Invalid Interpretation Code [facility] Work Phone: [phone] Documentation of current medications (procedure) Done Invalid Interpretation Code [facility] Work Phone: [phone] Fall risk assessment No Invalid Interpretation Code [facility] Work Phone: [phone] Protein mass conc yes [facility] Work Phone: [phone] Smoking cessation education (procedure) yes Invalid Interpretation Code [facility] Work Phone: [phone] Tobacco smoking status NHIS Current every day smoker [facility] Work Phone: [phone] Tobacco use CPHS Current every day smoker Invalid Interpretation Code [facility] Work Phone: [phone] Office Visiton 02-06-2017 Documentation of current medications (procedure) Done Invalid Interpretation Code [facility] Work Phone: [phone] Fall risk assessment No Invalid Interpretation Code [facility] Work Phone: [phone] Replaced Document: Olya Villela Observationson 02-06-2017 EKG QRS axis 2 deg [facility] 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 ABNORMAL [facility] Work Phone: [phone] P [place] 54 deg [facility] Work Phone: [phone] P wave axis, electrocardiogram 54 deg Invalid Interpretation Code [facility] Work Phone: [phone] NE Interval 160 ms [facility] Work Phone: [phone] NE interval, electrocardiogram 160 ms Invalid Interpretation Code [facility] Work Phone: [phone] Pulse (Heart Rate) 89 /min Invalid Interpretation Code [facility] Work Phone: [phone] QRS axis, electrocardiogram 2 deg Invalid Interpretation Code [facility] Work Phone: [phone] QRS Duration 96 ms [facility] Work Phone: [phone] QRS duration, electrocardiogram 96 ms Invalid Interpretation Code [facility] Work Phone: [phone] QT Interval new path ms [facility] Work Phone: [phone] QT interval, electrocardiogram new path ms Invalid Interpretation Code [facility] Work Phone: [phone] QTc Llanos 396 ms [facility] Work Phone: [phone] T [place] 26 deg [facility] Work Phone: [phone] T wave axis, electrocardiogram 26 deg Invalid Interpretation Code [facility] Work Phone: [phone] Office Visiton 12-27-2016 Smoking cessation education (procedure) yes Invalid Interpretation Code [facility] Work Phone: [phone] Tobacco smoking status NHIS Current every day smoker [facility] Work Phone: [phone] Tobacco use CPHS Current every day smoker Invalid Interpretation Code [facility] Work Phone: [phone] Clinical Lists Update: Prelo galley boy 12-22-2016 Left ventricular Ejection fraction 60 % Invalid Interpretation Code [facility] Work Phone: [phone] Clinical Lists Update: Prelo galley boy 12-10-2016 Cholesterol [Mass/Vol] 191 mg/dL [facility] Work Phone: [phone] Cholesterol in HDL [Mass/Vol] 28 mg/dL Low [facility] Work Phone: [phone] Cholesterol in LDL [Mass/Vol] 121 mg/dL [facility] Work Phone: [phone] Lipoprotein.pre-beta [Mass/Vol] 42 mg/dL High [facility] Work Phone: [phone] Triglyceride [Mass/Vol] 211 mg/dL High [facility] Work Phone: [phone] Vital Signs Date Time Vital Sign Value Performing Clinician Rebecca roberson 02-11-2025 14:06-0400 Body mass index (BMI) [Ratio] 36.1 kg/m2 Dr. Beka Bowie MD Work Phone: [facility] 02-11-2025 13:05-0400 Heart rate 91 /min Dr. Beka Bowie MD Work Phone: [facility] 02-11-2025 13:00-0400 Diastolic blood pressure 120 mm[Hg] Dr. Beka Bowie MD Work Phone: [facility] 02-11-2025 13:00-0400 Respiratory rate 20 /min Dr. Beka Bowie MD Work Phone: [facility] 02-11-2025 13:00-0400 SaO2% (BldA) [Mass fraction] 97 % Dr. Beka Bowie MD Work Phone: [facility] 02-11-2025 13:00-0400 Systolic blood pressure 182 mm[Hg] Dr. Beka Bowie MD Work Phone: [facility] 02-11-2025 12:00-0400 Body temperature 98.2 [degF] Dr. Beka Bowie MD Work Phone: [facility] 02-11-2025 09:26-0400 Inhaled oxygen flow rate 2 L/min Dr. Beka Bowie MD Work Phone: [facility] 02-11-2025 09:17-0400 Body height 172.[address] Beka Bowie MD Work Phone: [facility] 02-11-2025 09:17-0400 Body weight 107.[address] Beka Bowie MD Work Phone: [facility] 02-11-2025 00:00-0400 Diastolic blood pressure 111 mm[Hg] Dr. Beka Bowie MD Work Phone: [facility] 02-11-2025 00:00-0400 Heart rate 101 /min Dr. Beka Bowie MD Work Phone: [facility] 02-11-2025 00:00-0400 Respiratory rate 21 /min Dr. Beka Bowie MD Work Phone: [facility] 02-11-2025 00:00-0400 SaO2% (BldA) [Mass fraction] 95 % Dr. Beka Bowie MD Work Phone: [facility] 02-11-2025 00:00-0400 Systolic blood pressure 174 mm[Hg] Dr. Beka Bowie MD Work Phone: [facility] 02-10-2025 23:33-0400 Body temperature 98.7 [degF] Dr. Beka Bowie MD Work Phone: [facility] 02-10-2025 18:13-0400 Body height 172.[address] Beka Bowie MD Work Phone: [facility] 02-10-2025 18:13-0400 Body mass index (BMI) [Ratio] 36.3 kg/m2 Dr. Beka Bowie MD Work Phone: [facility] 02-10-2025 18:13-0400 Body weight 108.[address] Beka Bowie MD Work Phone: [facility] 03-17-2024 07:29-0400 Body temperature 97.2 [degF] Rad Moomaw BREEDER SERVICE TECHNICIAN.PERMIT COORDINATOR Work Phone: [facility] 03-17-2024 07:29-0400 Body weight 107.9 kg Rad Moomaw BREEDER SERVICE TECHNICIAN.PERMIT COORDINATOR Work Phone: [facility] 03-17-2024 07:29-0400 Diastolic blood pressure 90 mm[Hg] Rad Moomaw BREEDER SERVICE TECHNICIAN.PERMIT COORDINATOR Work Phone: [facility] 03-17-2024 07:29-0400 Heart rate 72 /min Rad Moomaw BREEDER SERVICE TECHNICIAN.PERMIT COORDINATOR Work Phone: [facility] 03-17-2024 07:29-0400 Respiratory rate 16 /min Ard Moomaw BREEDER SERVICE TECHNICIAN.PERMIT COORDINATOR Work Phone: [facility] 03-17-2024 07:29-0400 SaO2% (BldA) [Mass fraction] 98 % Rad Moomaw BREEDER SERVICE TECHNICIAN.PERMIT COORDINATOR Work Phone: [facility] 03-17-2024 07:29-0400 Systolic blood pressure 162 mm[Hg] Rad Moomaw BREEDER SERVICE TECHNICIAN.PERMIT COORDINATOR Work Phone: [facility] 01-31-2024 16:49-0400 Body height 172.[address] Beka Bowie Work Phone: [facility] 01-31-2024 16:49-0400 Body mass index (BMI) [Ratio] 35.1 kg/m2 Dr. Beka Bowie Work Phone: [facility] 01-31-2024 16:49-0400 Body temperature 98.1 [degF] Dr. Beka Bowie Work Phone: [facility] 01-31-2024 16:49-0400 Body weight 104.[address] Beka Bowie Work Phone: [facility] 01-31-2024 16:49-0400 Diastolic blood pressure 90 mm[Hg] Dr. Beka Bowie Work Phone: [facility] 01-31-2024 16:49-0400 Heart rate 91 /min Dr. Beka Bowie Work Phone: [facility] 01-31-2024 16:49-0400 Respiratory rate 20 /min Dr. Beka Bowie Work Phone: [facility] 01-31-2024 16:49-0400 SaO2% (BldA) [Mass fraction] 95 % Dr. Beka Bowie Work Phone: [facility] 01-31-2024 16:49-0400 Systolic blood pressure 134 mm[Hg] Dr. Beka Bowie Work Phone: [facility] 01-15-2024 08:57-0500 Body mass index (BMI) [Ratio] 35.4 kg/m2 Dr. Beka Bowie Work Phone: [facility] 01-15-2024 08:57-0500 Body weight 105.[address] Beka Bowie Work Phone: [facility] 01-15-2024 08:57-0500 Diastolic blood pressure 83 mm[Hg] Dr. Beka Bowie Work Phone: [facility] 01-15-2024 08:57-0500 Heart rate 80 /min Dr. Beka Bowie Work Phone: [facility] 01-15-2024 08:57-0500 Respiratory rate 18 /min Dr. Beka Bowie Work Phone: [facility] 01-15-2024 08:57-0500 SaO2% (BldA) [Mass fraction] 94 % Dr. Beka Bowie Work Phone: [facility] 01-15-2024 08:57-0500 Systolic blood pressure 134 mm[Hg] Dr. Beka Bowie Work Phone: [facility] 12-28-2023 11:13-0500 Body height 172.[address] Beka Bowie Work Phone: [facility] 12-28-2023 11:13-0500 Body mass index (BMI) [Ratio] 33.9 kg/m2 Dr. Beka Bowie Work Phone: [facility] 12-28-2023 11:13-0500 Body temperature 96.8 [degF] Dr. Beka Bowie Work Phone: [facility] 12-28-2023 11:13-0500 Body weight 101.[address] Beka Bowie Work Phone: [facility] 12-28-2023 11:13-0500 Diastolic blood pressure 90 mm[Hg] Dr. Beka Bowie Work Phone: [facility] 12-28-2023 11:13-0500 Heart rate 75 /min Dr. Beka Bowie Work Phone: [facility] 12-28-2023 11:13-0500 Respiratory rate 18 /min Dr. Beka Bowie Work Phone: [facility] 12-28-2023 11:13-0500 SaO2% (BldA) [Mass fraction] 95 % Dr. Beka Bowie Work Phone: [facility] 12-28-2023 11:13-0500 Systolic blood pressure 176 mm[Hg] Dr. Beka Bowie Work Phone: [facility] 12-26-2023 08:00-0500 Body temperature 98.5 [degF] Dr. Beka Bowie Work Phone: [facility] 12-26-2023 08:00-0500 Diastolic blood pressure 74 mm[Hg] Dr. Beka Bowie Work Phone: [facility] 12-26-2023 08:00-0500 Heart rate 80 /min Dr. Beka Bowie Work Phone: [facility] 12-26-2023 08:00-0500 Respiratory rate 14 /min Dr. Beka Bowie Work Phone: [facility] 12-26-2023 08:00-0500 SaO2% (BldA) [Mass fraction] 96 % Dr. Beka Bowie Work Phone: [facility] 12-26-2023 08:00-0500 Systolic blood pressure 181 mm[Hg] Dr. Beka Bowie Work Phone: [facility] 12-26-2023 07:35-0500 Inhaled oxygen flow rate 2 L/min Dr. Beka Bowie Work Phone: [facility] 12-24-2023 16:28-0500 Body height 172.[address] Beka Bowie Work Phone: [facility] 12-24-2023 16:28-0500 Body mass index (BMI) [Ratio] 34.4 kg/m2 Dr. Beka Bowie Work Phone: [facility] 12-24-2023 16:28-0500 Body weight 102.[address] Beka Bowie Work Phone: [facility] 12-24-2023 15:25-0500 Body temperature 96 [degF] Dr. Beka Bowie Work Phone: [facility] 12-24-2023 15:25-0500 Diastolic blood pressure 108 mm[Hg] Dr. Beka Bowie Work Phone: [facility] 12-24-2023 15:25-0500 Heart rate 100 /min Dr. Beka Bowie Work Phone: [facility] 12-24-2023 15:25-0500 Respiratory rate 20 /min Dr. Beka Bowie Work Phone: [facility] 12-24-2023 15:25-0500 SaO2% (BldA) [Mass fraction] 96 % Dr. Beka Bowie Work Phone: [facility] 12-24-2023 15:25-0500 Systolic blood pressure 212 mm[Hg] Dr. Beka Bowie Work Phone: [facility] 12-24-2023 15:09-0500 Body mass index (BMI) [Ratio] 35.5 kg/m2 Dr. Beka Bowie Work Phone: [facility] 12-24-2023 15:09-0500 Body weight 106.[address] Beka Bowie Work Phone: [facility] 12-24-2023 12:19-0500 Body height 172.[address] Beka Bowie Work Phone: [facility] 12-06-2023 15:15-0500 Body height 172.[address] Beka Bowie Work Phone: [facility] 12-06-2023 15:15-0500 Body mass index (BMI) [Ratio] 35.4 kg/m2 Dr. Beka Bowie Work Phone: [facility] 12-06-2023 15:15-0500 Body temperature 98.3 [degF] Dr. Beka Bowie Work Phone: [facility] 12-06-2023 15:15-0500 Body weight 105.[address] Beka Bowie Work Phone: [facility] 12-06-2023 15:15-0500 Diastolic blood pressure 102 mm[Hg] Dr. Beka Bowie Work Phone: [facility] 12-06-2023 15:15-0500 Heart rate 83 /min Dr. Beka Bowie Work Phone: [facility] 12-06-2023 15:15-0500 Respiratory rate 18 /min Dr. Beka Bowie Work Phone: [facility] 12-06-2023 15:15-0500 SaO2% (BldA) [Mass fraction] 97 % Dr. Beka Bowie Work Phone: [facility] 12-06-2023 15:15-0500 Systolic blood pressure 154 mm[Hg] Dr. Beka Bowie Work Phone: [facility] 11-21-2023 10:41-0500 Diastolic blood pressure 77 mm[Hg] [facility] 11-21-2023 10:41-0500 Heart rate 71 /min [facility] 11-21-2023 10:41-0500 Respiratory rate 18 /min [facility] 11-21-2023 10:41-0500 SaO2% (BldA) [Mass fraction] 97 % [facility] 11-21-2023 10:41-0500 Systolic blood pressure 133 mm[Hg] [facility] 11-21-2023 06:38-0500 Body height 172.72 cm [facility] 11-21-2023 06:38-0500 Body mass index (BMI) [Ratio] 35.2 kg/m2 [facility] 11-21-2023 06:38-0500 Body temperature 97 [degF] [facility] 11-21-2023 06:38-0500 Body weight 104.9 kg [facility] 06-26-2022 13:25-0400 Diastolic blood pressure 92 mm[Hg] Dr. Beka Bowie Work Phone: [facility] Work Phone: 06-26-2022 13:25-0400 Heart rate 75 /min Dr. Beka Bowie Work Phone: [facility] Work Phone: 06-26-2022 13:25-0400 Respiratory rate 16 /min Dr. Beka Bowie Work Phone: [facility] Work Phone: 06-26-2022 13:25-0400 SaO2% (BldA) [Mass fraction] 95 % Dr. Beka Bowie Work Phone: [facility] Work Phone: 06-26-2022 13:25-0400 Systolic blood pressure 159 mm[Hg] Dr. Beka Bowie Work Phone: [facility] Work Phone: 06-26-2022 12:00-0400 Body temperature 98.1 [degF] Dr. Beka Bowie Work Phone: [facility] Work Phone: 06-26-2022 09:12-0400 Body height 172.[address] Beka Bowie Work Phone: [facility] Work Phone: 06-26-2022 09:12-0400 Body weight 101.[address] Beka Bowie Work Phone: [facility] Work Phone: 06-26-2022 04:53-0400 Body mass index (BMI) [Ratio] 34 kg/m2 Dr. Beka Bowie Work Phone: [facility] Work Phone: 06-26-2022 04:16-0400 Diastolic blood pressure 120 mm[Hg] Dr. Beka Bowie Work Phone: [facility] Work Phone: 06-26-2022 04:16-0400 Heart rate 89 /min Dr. Beka Bowie Work Phone: [facility] Work Phone: 06-26-2022 04:16-0400 Systolic blood pressure 198 mm[Hg] Dr. Beka Bowie Work Phone: [facility] Work Phone: 06-26-2022 04:15-0400 Body temperature 98.7 [degF] Dr. Beka Bowie Work Phone: [facility] Work Phone: 06-26-2022 04:15-0400 Respiratory rate 19 /min Dr. Beka Bowie Work Phone: [facility] Work Phone: 06-26-2022 04:15-0400 SaO2% (BldA) [Mass fraction] 91 % Dr. Beka Bowie Work Phone: [facility] Work Phone: 06-26-2022 01:03-0400 Body height 172.[address] Beka Bowie Work Phone: [facility] Work Phone: 06-26-2022 01:03-0400 Body mass index (BMI) [Ratio] 34 kg/m2 Dr. Beka Bowie Work Phone: [facility] Work Phone: 06-26-2022 01:03-0400 Body weight 101.[address] Beka Bowie Work Phone: [facility] Work Phone: 06-08-2022 16:11-0400 Body height 172.[address] Beka Bowie Work Phone: [facility] Work Phone: 06-08-2022 16:11-0400 Body mass index (BMI) [Ratio] 32.1 kg/m2 Dr. Beka Bowie Work Phone: [facility] Work Phone: 06-08-2022 16:11-0400 Body temperature 97.1 [degF] Dr. Beka Bowie Work Phone: [facility] Work Phone: 06-08-2022 16:11-0400 Body weight 95.[address] Beka Bowie Work Phone: [facility] Work Phone: 06-08-2022 16:11-0400 Diastolic blood pressure 90 mm[Hg] Dr. Beka Bowie Work Phone: [facility] Work Phone: 06-08-2022 16:11-0400 Heart rate 82 /min Dr. Beka Bowie Work Phone: [facility] Work Phone: 06-08-2022 16:11-0400 Respiratory rate 15 /min Dr. Beka Bowie Work Phone: [facility] Work Phone: 06-08-2022 16:11-0400 SaO2% (BldA) [Mass fraction] 95 % Dr. Beka Bowie Work Phone: [facility] Work Phone: 06-08-2022 16:11-0400 Systolic blood pressure 140 mm[Hg] Dr. Beka Bowie Work Phone: [facility] Work Phone: 06-05-2022 11:27-0400 Body mass index (BMI) [Ratio] 33 kg/m2 Dr. Beka Bowie Work Phone: [facility] Work Phone: 06-05-2022 11:27-0400 Body weight 98.[address] Beka Bowie Work Phone: [facility] Work Phone: 06-05-2022 11:27-0400 Diastolic blood pressure 110 mm[Hg] Dr. Beka Bowie Work Phone: [facility] Work Phone: 06-05-2022 11:27-0400 Heart rate 80 /min Dr. Beka Bowie Work Phone: [facility] Work Phone: 06-05-2022 11:27-0400 Systolic blood pressure 160 mm[Hg] Dr. Beka Bowie Work Phone: [facility] Work Phone: 04-27-2022 14:15-0400 Diastolic blood pressure 91 mm[Hg] Dr. Beka Bowie Work Phone: [facility] Work Phone: 04-27-2022 14:15-0400 Heart rate 85 /min Dr. Beka Bowie Work Phone: [facility] Work Phone: 04-27-2022 14:15-0400 Respiratory rate 16 /min Dr. Beka Bowie Work Phone: [facility] Work Phone: 04-27-2022 14:15-0400 SaO2% (BldA) [Mass fraction] 94 % Dr. Beka Bowie Work Phone: [facility] Work Phone: 04-27-2022 14:15-0400 Systolic blood pressure 159 mm[Hg] Dr. Beka Bowie Work Phone: [facility] Work Phone: 04-27-2022 13:30-0400 Diastolic blood pressure 95 mm[Hg] Dr. Beka Bowie Work Phone: [facility] Work Phone: 04-27-2022 13:30-0400 Heart rate 81 /min Dr. Beka Bowie Work Phone: [facility] Work Phone: 04-27-2022 13:30-0400 Respiratory rate 16 /min Dr. Beka Bowie Work Phone: [facility] Work Phone: 04-27-2022 13:30-0400 SaO2% (BldA) [Mass fraction] 96 % Dr. Beka Bowie Work Phone: [facility] Work Phone: 04-27-2022 13:30-0400 Systolic blood pressure 167 mm[Hg] Dr. Beka Bowie Work Phone: [facility] Work Phone: 04-27-2022 09:45-0400 Body temperature 98 [degF] Dr. Beka Bowie Work Phone: [facility] Work Phone: 04-27-2022 09:42-0400 Body height 172.[address] Beka Bowie Work Phone: [facility] Work Phone: 04-27-2022 09:42-0400 Body mass index (BMI) [Ratio] 32.1 kg/m2 Dr. Beka Bowie Work Phone: [facility] Work Phone: 04-27-2022 09:42-0400 Body weight 95.[address] Beka Bowie Work Phone: [facility] Work Phone: 04-27-2022 09:03-0400 Diastolic blood pressure 104 mm[Hg] Dr. Beka Bowie Work Phone: [facility] Work Phone: 04-27-2022 09:03-0400 Systolic blood pressure 134 mm[Hg] Dr. Beka Bowie Work Phone: [facility] Work Phone: 04-27-2022 08:49-0400 Body temperature 97.9 [degF] Dr. Beka Bowie Work Phone: [facility] Work Phone: 04-27-2022 08:49-0400 Heart rate 68 /min Dr. Beka Bowie Work Phone: [facility] Work Phone: 04-27-2022 08:49-0400 Respiratory rate 16 /min Dr. Beka Bowie Work Phone: [facility] Work Phone: 04-27-2022 08:49-0400 SaO2% (BldA) [Mass fraction] 94 % Dr. Beka Bowie Work Phone: [facility] Work Phone: 04-27-2022 07:11-0400 Body height 172.[address] Beka Bowie Work Phone: [facility] Work Phone: 04-27-2022 07:11-0400 Body mass index (BMI) [Ratio] 32.8 kg/m2 Dr. Beka Bowie Work Phone: [facility] Work Phone: 04-27-2022 07:11-0400 Body weight 97.[address] Beka Bowie Work Phone: [facility] Work Phone: 03-30-2022 15:33-0400 Body mass index (BMI) [Ratio] 32.5 kg/m2 Dr. Beka Bowie Work Phone: [facility] Work Phone: 03-30-2022 15:33-0400 Body temperature 96.6 [degF] Dr. Beka Bowie Work Phone: [facility] Work Phone: 03-30-2022 15:33-0400 Body weight 97.[address] Beka Bowie Work Phone: [facility] Work Phone: 03-30-2022 15:33-0400 Diastolic blood pressure 84 mm[Hg] Dr. Beka Bowie Work Phone: [facility] Work Phone: 03-30-2022 15:33-0400 Heart rate 75 /min Dr. Beka Bowie Work Phone: [facility] Work Phone: 03-30-2022 15:33-0400 Respiratory rate 16 /min Dr. Beka Bowie Work Phone: [facility] Work Phone: 03-30-2022 15:33-0400 SaO2% (BldA) [Mass fraction] 95 % Dr. Beka Bowie Work Phone: [facility] Work Phone: 03-30-2022 15:33-0400 Systolic blood pressure 130 mm[Hg] Dr. Beka Bowie Work Phone: [facility] Work Phone: 03-30-2022 15:33-0400 Body mass index (BMI) [Ratio] 32.5 kg/m2 Dr. Beka Bowie Work Phone: [facility] Work Phone: 03-30-2022 15:33-0400 Body temperature 96.6 [degF] Dr. Beka Bowie Work Phone: [facility] Work Phone: 03-30-2022 15:33-0400 Body weight 97.[address] Beka Bowie Work Phone: [facility] Work Phone: 03-30-2022 15:33-0400 Diastolic blood pressure 84 mm[Hg] Dr. Beka Bowie Work Phone: [facility] Work Phone: 03-30-2022 15:33-0400 Heart rate 75 /min Dr. Beka Bowie Work Phone: [facility] Work Phone: 03-30-2022 15:33-0400 Respiratory rate 16 /min Dr. Beka Bowie Work Phone: [facility] Work Phone: 03-30-2022 15:33-0400 SaO2% (BldA) [Mass fraction] 95 % Dr. Beka Bowie Work Phone: [facility] Work Phone: 03-30-2022 15:33-0400 Systolic blood pressure 130 mm[Hg] Dr. Beka Bowie Work Phone: [facility] Work Phone: 02-15-2022 16:08-0400 Body mass index (BMI) [Ratio] 32.9 kg/m2 Dr. Beka Bowie Work Phone: [facility] Work Phone: 02-15-2022 16:08-0400 Body temperature 98.2 [degF] Dr. Beka Bowie Work Phone: [facility] Work Phone: 02-15-2022 16:08-0400 Body weight 98.[address] Beka Bowie Work Phone: [facility] Work Phone: 02-15-2022 16:08-0400 Diastolic blood pressure 82 mm[Hg] Dr. Beka Bowie Work Phone: [facility] Work Phone: 02-15-2022 16:08-0400 Heart rate 79 /min Dr. Beka Bowie Work Phone: [facility] Work Phone: 02-15-2022 16:08-0400 Respiratory rate 18 /min Dr. Beka Bowie Work Phone: [facility] Work Phone: 02-15-2022 16:08-0400 SaO2% (BldA) [Mass fraction] 96 % Dr. Beka Bowie Work Phone: [facility] Work Phone: 02-15-2022 16:08-0400 Systolic blood pressure 162 mm[Hg] Dr. Beka Bowie Work Phone: [facility] Work Phone: 01-13-2022 14:23-0500 Body mass index (BMI) [Ratio] 31.6 kg/m2 Dr. Beka Bowie Work Phone: [facility] Work Phone: 01-13-2022 14:18-0500 Body weight 94.[address] Beka Bowie Work Phone: [facility] Work Phone: 01-13-2022 14:18-0500 Diastolic blood pressure 90 mm[Hg] Dr. Beka Bowie Work Phone: [facility] Work Phone: 01-13-2022 14:18-0500 Heart rate 86 /min Dr. Beka Bowie Work Phone: [facility] Work Phone: 01-13-2022 14:18-0500 Respiratory rate 18 /min Dr. Beka Bowie Work Phone: [facility] Work Phone: 01-13-2022 14:18-0500 SaO2% (BldA) [Mass fraction] 95 % Dr. Beka Bowie Work Phone: [facility] Work Phone: 01-13-2022 14:18-0500 Systolic blood pressure 158 mm[Hg] Dr. Beka Bowie Work Phone: [facility] Work Phone: 07-17-2017 10:05-0400 BMI (Body Mass Index) 31.81 kg/m2 MD [facility] Work Phone: 07-17-2017 10:05-0400 BP Diastolic 100 mm[Hg] Eric Flores MD [facility] Work Phone: 07-17-2017 10:05-0400 BP Systolic 158 mm[Hg] Eric Flores MD [facility] Work Phone: 07-17-2017 10:05-0400 Height 172.72 cm Eric Flores MD [facility] Work Phone: 07-17-2017 10:05-0400 Pulse (Heart Rate) 72 /min Eric Flores MD [facility] Work Phone: 07-17-2017 10:05-0400 Respiratory Rate 20 /min Eric Flores MD [facility] Work Phone: 07-17-2017 10:05-0400 Weight 94.92 kg Eric Flores MD [facility] Work Phone: 04-27-2017 09:15-0400 BMI (Body Mass Index) 34.97 kg/m2 MD [facility] Work Phone: 04-27-2017 09:15-0400 BP Diastolic 104 mm[Hg] MD [facility] Work Phone: 04-27-2017 09:15-0400 BP Systolic 178 mm[Hg] Eric Flores MD [facility] Work Phone: 04-27-2017 09:15-0400 Height 172.72 cm MD [facility] Work Phone: 04-27-2017 09:15-0400 Pulse (Heart Rate) 78 /min MD [facility] Work Phone: 06-09-2017 09:15-0400 Respiratory Rate 18 /min Eric Flores MD [facility] Work Phone: 04-27-2017 09:15-0400 Weight 104.33 kg Eric Flores MD [facility] Work Phone: 02-06-2017 14:25-0400 Heart rate 89 /min Harumi DeFinallan [facility] Work Phone: 02-06-2017 14:17-0400 BMI (Body Mass Index) 34.39 kg/m2 Harumi Carmella [facility] Work Phone: 02-06-2017 14:17-0400 Body weight 102.6 kg Harumi DeFinis [facility] Work Phone: 02-06-2017 14:17-0400 BP Diastolic 90 mm[Hg] Harumi DeFinis [facility] Work Phone: 02-06-2017 14:17-0400 BP Systolic 140 mm[Hg] Harumi DeFinis [facility] Work Phone: 02-06-2017 14:17-0400 Height 172.72 cm Harumi DeFinis [facility] Work Phone: 02-06-2017 14:17-0400 Pulse (Heart Rate) 88 /min Harumi DeFinis [facility] Work Phone: 02-06-2017 14:17-0400 Pulse Oximetry 98 % Harumi DeFinis [facility] Work Phone: 02-06-2017 14:17-0400 Respiratory Rate 24 /min Harumi DeFinis [facility] Work Phone: 02-06-2017 14:17-0400 Weight 102.6 kg Eric Flores MD [facility] Work Phone: 12-27-2016 09:07-0500 BSA (Body Surface Area) 2.12 m2 Harumi DeFinallan [facility] Work Phone: Encounters Encounter Date Encounter Type Care Provider Facility Start: 02-19-2025 ambulatory Beka Bowie Bayi ty:[facility] Start: 02-11-2025 ambulatory Eric Flores Facility:[facility] Start: 02-11-2025 Non-patient / Non-visit [facility] Mtz [facility] Start: 02-11-2025 ambulatory Mitchell Deras Facili ty:[facility] Start: 02-11-2025 Non-patient / Non-visit Dr. Brennon shen [facility] Work Phone: Start: 02-11-[address] [facility] Facility:[facility] Start: 02-11-2025 End: 02-11-2025 Evaluation and management of inpatient Dr. Micthell Deras DO -Intensive Care Unit Work Phone: Start: 10-12-2024 End: 10-12-2024 ambulatory [place] Riddletika Facility:[facility] Start: 10-11-2024 ambulatory Mitchell Diazi ty:[facility] Start: 10-11-2024 End: 10-13-2024 Evaluation and management of inpatient Mitchell Deras Facility:[facility] Start: 09-25-2024 End: 09-25-2024 Emergency department patient visit [facility] Venkateshtika Facility:[facility] Start: 04-07-2024 ambulatory Beka Venkateshtika Bayi ty:[facility] Start: 03-17-2024 End: 03-17-2024 ambulatory Facility:[facility] Start: 03-17-2024 End: 03-17-2024 Patient encounter procedure Rad Darelljosé BREEDER SERVICE TECHNICIAN.PERMIT COORDINATOR Work Phone: [facility] Comment on above: Bacterial conjunctiv itis (Primary Dx) Start: 02-08-2024 End: 02-08-[address] Beka Bowie Work Phone: [facility] Work Phone: Start: 02-08-2024 End: 02-08-[address] Beka Bowie Work Phone: [facility]-Laboratory Work Phone: Start: 01-31-2024 End: 01-31-[address] Beka Bowie Work Phone: [facility] Internal Medicine Work Phone: Start: 01-15-2024 End: 01-15-[address] Beka Bowie Work Phone: [facility] Work Phone: Start: 12-31-2023 End: 12-31-[address] Beka Bowie Work Phone: [facility] Work Phone: Start: 12-31-2023 End: 12-31-[address] Beka Bowie Work Phone: [facility]-Laboratory Work Phone: Start: 12-28-2023 End: 12-28-[address] Beka Bowie Work Phone: [facility] Internal Medicine Work Phone: Start: 12-26-2023 Non-patient / Non-visit Dr. Mukul Bowie Work Phone: [facility] Start: 12-25-2023 Non-patient / Non-visit Dr. Mukul Bowie Work Phone: [facility] Work Phone: Start: 12-25-2023 Non-patient / Non-visit Dr. Mukul Bowie Work Phone: [facility] Start: 12-24-2023 End: 12-26-2023 Evaluation and management of inpatient Dr. Beka Bowie Work Phone: [facility]-Progressive Care Unit Work Phone: Start: 12-24-2023 Non-patient / Non-visit Dr. Mukul Bowie Work Phone: [facility] Work Phone: Start: 12-12-2023 Non-patient / Non-visit Dr. Mukul Bowie Work Phone: [facility] Work Phone: Start: 12-11-2023 Non-patient / Non-visit Dr. Mukul Bowie Work Phone: [facility] Start: 12-11-2023 End: 12-11-[address] Beka Bowie Work Phone: [facility] Work Phone: Start: 12-11-2023 End: 12-11-[address] [facility] Start: 12-06-2023 End: 12-06-[address] Beka Bowie Work Phone: [facility] Internal Medicine Work Phone: Start: 11-21-2023 End: 11-21-2023 [facility] Start: 06-26-2022 Non-patient / Non-visit Dr. Mukul Bowie Work Phone: [facility] Start: 06-26-2022 Non-patient / Non-visit Dr. Mukul Bowie Work Phone: [facility] Start: 06-26-2022 End: 06-26-2022 Evaluation and management of inpatient Dr. Beka Bowie Work Phone: [facility]-Intensive Care Unit Start: 06-15-2022 End: 06-15-[address] Beka Bowie Work Phone: [facility]-Radiology, [facility] Start: 06-08-2022 End: 06-08-[address] Beka Bowie Work Phone: [facility] Internal Medicine Start: 06-05-2022 End: 06-05-[address] Beka Bowie Work Phone: [facility] Start: 04-27-2022 Non-patient / Non-visit Dr. Mukul Bowie Work Phone: [facility] Start: 04-27-2022 End: 04-27-2022 Evaluation and management of inpatient [facility]. Beka Bowie [facility] Start: 04-27-2022 Evaluation and manag ement of inpatient Dr. Beka Bowie [facility] Start: 03-30-2022 End: 03-30-[address] Beka oBwie Work Phone: [facility] Endocrinology Start: 02-15-2022 End: 02-15-[address] Beka Bowie Work Phone: [facility] Internal Medicine Start: 01-18-2022 End: 01-18-[address] Beka Bowie Work Phone: [facility]-Laboratory, Specimen Start: 01-17-2022 Non-patient / Non-visit Dr. Mukul Bowie Work Phone: [facility] Start: 01-17-2022 End: 01-17-[address] Beka Bowie Work Phone: [facility]-Cardiovascular Services Start: 01-13-2022 End: 01-13-[address] Beka Bowie Work Phone: [facility] Procedures Date Procedure Procedure Detail Performing Clinician Start: 02-11-2025 Legionella pneumophi la antigen assay Dr. Beka Bowie MD Work Phone: Start: 02-11-2025 Streptococcus pneumo niae antigen assay Dr. Beka Bowie MD Work Phone: Start: 02-11-2025 MRI of brain with contrast Dr. Beka Bowie MD Work Phone: Start: 02-10-2025 CT angiography of he ad and neck Dr. Beka Bowie MD Work Phone: Start: 02-10-2025 CT of head without contrast Dr. Beka Bowie MD Work Phone: Start: 02-10-2025 X-ray of chest, PA a nd lateral views Dr. Beka Bowie MD Work Phone: Start: 12-31-2023 Investigation of transfusion reaction Dr. Beka Bowie Work Phone: Start: 12-31-2023 Respiratory microbia l culture Dr. Beka Bowie Work Phone: Start: 12-25-2023 Plain chest X-ray Dr. Tika Bowie Work Phone: Start: 12-25-2023 History of placement of stent for coronary artery disease History of coronary artery stent placement Dr. Beka Bowie Work Phone: Comment on above: WAN-OM2 w/ 2.75 x 14 mm Resolute Integrity 12/11/2016 WAN Mid D1 w/ 2.5 x 18 mm Resolute Integrity and WAN Prox LAD w/ 3.0 x 15 mm Resolute Integrity 02/21/19; PCI-WAN-Mid LCx w/ 2.25 x 12 mm Synergy MR Stent and 3.0 x 16 mm Synergy MR Stent 03/18/2020; KQO-ODT-AOSN w/ 3.0 x 12 mm Synergy Stent and WAN-Prox RCA w/ 3.5 x 20 MM Synergy Stent 11/22/2020; WAN mid LAD w/3.0 X 24 MM Synergy MR Stent 11/18/2021, WAN Prox LAD using [employer] 3.0x12 mm and WAN Prox OM1 using [employer] 2.5x18 mm 12/25/23 Start: 12-24-2023 Plain chest X-ray Dr. Tika Bowie Work Phone: Start: 12-11-2023 Radionuclide imaging of perfusion of myocardium under exercise stress Dr. Beka Bowie Work Phone: Start: 11-21-2023 CT of head without contrast Start: 11-21-2023 Plain chest X-ray Start: 06-26-2022 Plain chest X-ray Dr. Tika Bowie Work Phone: Start: 06-15-2022 Plain X-ray of shoulder Dr. Beka Bowie Work Phone: Start: 04-27-2022 Plain chest X-ray Dr. Tika Bowie Work Phone: Start: 01-17-2022 Nuclear Stress Test - Chemical Dr. Beka Bowie Work Phone: Start: 11-18-2021 History of placement of stent for coronary artery disease History of coronary artery stent placement Dr. Beka Bowie Work Phone: Start: 07-17-2017 End: 07-17-2017 Dietary management education, guidance, and counseling Eric Flores MD Start: 04-27-2017 Lipid 1996 panel - S purnima or Yola Renee APRN.CNP Work Phone: Start: 04-27-2017 End: 04-27-2017 *BMP Eric Flores MD Start: 04-27-2017 End: 04-27-2017 *Hepatic Function Panel Renee Thomas Start: 04-27-2017 End: 04-27-2017 Follow Up Appt 6 months Renee Thomas Start: 04-27-2017 End: 04-27-2017 Lipid panel [AGGREGATE] Renee Thomas Start: 04-27-2017 End: 04-27-2017 MMM Eric Flores MD Start: 02-06-2017 End: 02-06-2017 Documentation of current medications Valeriano Weir Start: 02-06-2017 End: 02-06-2017 Electrocardiogram, complete Eric Flores MD Start: 02-06-2017 End: 02-06-2017 Follow Up Appt 3 months Renee Thomas Start: 02-06-2017 End: 02-06-2017 MMRenee Flores MD Start: 12-27-2016 End: 12-27-2016 Smoking cessation education Valeriano Weir Start: 12-27-2016 End: 12-27-2016 Follow Up Appt 4 months Renee Thomas Start: 12-27-2016 End: 12-27-2016 DIEGO Flores MD Start: 12-22-2016 Placement of stent i n coronary artery Coronary stent Valeriano Weir Plan of Treatment Date Care Activity Detail Author Start: 02-11-2025 Patient discharge [facility] Start: 02-11-2025 Vitamin D, 1,25-dihydroxy measurement [facility] Start: 02-11-2025 Following clinical pathway protocol [facility] Start: 02-11-2025 Aspiration precautions [facility] Start: 02-11-2025 Cardiac monitoring [facility] Start: 02-11-2025 Catheterization of vein [facility] Start: 02-11-[address] [facility] Start: 02-11-2025 Continuous pulse oximetry [facility] Start: 02-11-2025 Elevation of head of bed [facility] Start: 02-11-[address] [facility] Start: 02-11-2025 Notification of physician [facility] Start: 02-11-[address] therapy [facility] Start: 02-11-2025 Patient referral to dietitian [facility] Start: 02-11-2025 Referral to occupational therapist [facility] Start: 02-11-2025 Referral to service [facility] Start: 02-11-2025 Speech therapy assessment [facility] Start: 02-11-2025 Telemedicine consultation with patient [facility] Start: 02-11-2025 Tobacco use cessation education [facility] Start: 02-11-2025 End: 02-11-[address] [facility] Start: 02-11-2025 Vital signs measurements [facility] Start: 02-11-2025 MRI of brain with contrast Brain WITH Contrast [facility] Start: 02-11-2025 Thyroid stimulating hormone measurement [facility] Start: 02-11-2025 Vitamin D, 1,25-dihydroxy measurement [facility] Start: 02-11-2025 Admission procedure [facility] Start: 02-11-2025 Inhalation therapy procedure [facility] Start: 02-10-[address] [facility] Start: 07-20-2024 Influenza vaccination Influenza Vaccine (Season Ended) [facility] Start: 12-28-2023 Electrocardiographic procedure [facility] Start: 12-27-2023 Electrocardiographic procedure [facility] Start: 12-26-2023 Electrocardiographic procedure [facility] Start: 12-26-2023 Patient discharge [facility] Start: 12-26-[address] [facility] Start: 12-25-2023 Care planning and problem solving actions [facility] Start: 12-25-2023 Care planning and problem solving actions [facility] Start: 12-25-2023 Ambulation without limitation [facility] Start: 12-25-2023 [address]ulse [address] [facility] Start: 12-25-2023 Cardiac monitoring [facility] Start: 12-25-2023 Cardiac rehabilitation - phase [address] [facility] Start: 12-25-2023 Cardiac rehabilitation - phase [address] [facility] Start: 12-25-2023 Notification of physician [facility] Start: 12-25-[address] [facility] Start: 12-25-2023 Patient discharge [facility] Start: 12-25-2023 Systemic arterial pressure monitoring [facility] Start: 12-25-2023 Taking patient vital signs [facility] Start: 12-25-2023 Vascular disease risk assessment [facility] Start: 12-25-2023 Vital signs measurements [facility] Start: 12-25-2023 End: 12-25-[address] [facility] Start: 12-25-2023 Patient referral [facility] Work Phone: Start: 12-25-2023 Continuous pulse oximetry [facility] Start: 12-25-2023 [address]operative [address] [facility] Start: 12-25-2023 Catheterization of vein [facility] Start: 12-25-2023 Medication not administered [facility] Start: 12-25-2023 Notification of physician [facility] Start: 12-25-[address] [facility] Start: 12-25-2023 Thyroid stimulating hormone measurement [facility] Start: 12-25-[address] [facility] Start: 12-24-2023 Following clinical pathway protocol [facility] Start: 12-24-2023 Care planning and problem solving actions [facility] Start: 12-24-2023 Assessment of risk of venous thromboembolism [facility] Start: 12-24-2023 Care regimes management [facility] Start: 12-24-2023 Electrocardiographic procedure [facility] Start: 12-24-2023 Inhalation therapy procedure [facility] Start: 12-24-2023 Insertion of catheter into peripheral vein [facility] Start: 12-24-2023 Measuring intake and output [facility] Start: 12-24-2023 Notification of physician [facility] Start: 12-24-[address] [facility] Start: 12-24-2023 Providing care according to standard [facility] Start: 12-24-2023 Provision of activity privileges [facility] Start: 12-24-2023 Referral to chaser apprentice [facility] Start: 12-24-2023 Tobacco use cessation education [facility] Start: 12-24-[address] [facility] Start: 12-24-2023 Verification [address] [facility] Start: 12-24-2023 Admission procedure [facility] Start: 11-21-[address] [facility] Start: 11-21-2023 End: 11-21-[address] [facility] Start: 11-19-2023 Behavioral Health Screening Behavioral Health Screening [facility] Start: 07-20-2023 Covid-19 Vaccine () Covid-19 Vaccine () [facility] Start: 06-26-2022 Patient discharge [facility] Work Phone: Start: 06-26-2022 Partial thromboplastin time, activated [facility] Work Phone: Start: 06-26-[address] [facility] Work Phone: Start: 06-26-2022 Following clinical pathway protocol [facility] Work Phone: Start: 06-26-2022 Assessment of risk of venous thromboembolism [facility] Work Phone: Start: 06-26-2022 Care regimes management [facility] Work Phone: Start: 06-26-2022 Catheterization of vein [facility] Work Phone: Start: 06-26-2022 Elevation of head of bed [facility] Work Phone: Start: 06-26-2022 Inhalation therapy procedure [facility] Work Phone: Start: 06-26-2022 Insertion of catheter into peripheral vein [facility] Work Phone: Start: 06-26-2022 Measuring intake and output [facility] Work Phone: Start: 06-26-2022 Providing care according to standard [facility] Work Phone: Start: 06-26-2022 Vital signs measurements [facility] Work Phone: Start: 06-26-[address] [facility] Work Phone: Start: 06-26-2022 Admission procedure [facility] Work Phone: Start: 04-27-2022 Lipid panel Lipid Screening [facility] Start: 04-27-2022 End: 04-27-2022 Patient discharge [facility] Work Phone: Start: 04-27-2022 Cardiac monitoring [facility] Work Phone: Start: 04-27-2022 Cardiac rehabilitation - phase [address] [facility] Work Phone: Start: 04-27-2022 Notification of physician [facility] Work Phone: Start: 04-27-[address] therapy [facility] Work Phone: Start: 04-27-2022 Systemic arterial pressure monitoring [facility] Work Phone: Start: 04-27-2022 Taking patient vital signs [facility] Work Phone: Start: 04-27-2022 Vascular disease risk assessment [facility] Work Phone: Start: 04-27-2022 Vital signs measurements [facility] Work Phone: Start: 04-27-[address] [facility] Work Phone: Start: 04-27-2022 Assessment of risk of venous thromboembolism [facility] Work Phone: Start: 04-27-2022 Insertion of catheter into peripheral vein [facility] Work Phone: Start: 04-27-2022 Measuring intake and output [facility] Work Phone: Start: 04-27-2022 Providing care according to standard [facility] Work Phone: Start: 04-27-2022 Provision of activity privileges [facility] Work Phone: Start: 04-27-2022 Tobacco use cessation education [facility] Work Phone: Start: 04-27-[address] [facility] Work Phone: Start: 04-27-2022 End: 04-27-2022 Referral to chaser apprentice [facility] Work Phone: Start: 04-27-2022 Admission procedure [facility] Work Phone: Start: 04-27-2022 Following clinical pathway protocol [facility] Work Phone: Start: 2021 Shingrix Vaccine (1 of 2) Shingrix Vaccine (1 of 2) [facility] Start: 11-09-2017 End: 11-09-2017 Appointment Appointment [facility] Work Phone: Start: 10-29-2017 End: 05-03-2017 *Hepatic Function Panel *Hepatic Function Panel [facility] Work Phone: Start: 10-29-2017 End: 05-03-2017 Lipid panel [AGGREGATE] *Lipid Profile CC PCP [facility] Work Phone: Start: 07-17-2017 End: 07-17-2017 Appointment Appointment [facility] Phone: Start: 07-13-2017 End: 07-13-2017 Appointment Appointment [facility] Work Phone: Start: 04-27-2017 End: 04-27-2017 Appointment Appointment [facility] Work Phone: Start: 04-27-2017 End: 04-27-2017 *BMP *BMP [facility] Work Phone: Start: 04-27-2017 End: 04-27-2017 *Hepatic Function Panel *Hepatic Function Panel [facility] Phone: Start: 04-27-2017 End: 04-27-2017 Follow Up Appt 6 months Follow Up Appt 6 months [facility] Work Phone: Start: 04-27-2017 End: 04-27-2017 Lipid panel [AGGREGATE] *Lipid Profile CC PCP [facility] Work Phone: Start: 04-27-2017 End: 04-27-2017 MMM MMM [facility] Work Phone: Start: 02-06-2017 End: 02-06-2017 Electrocardiogram, complete EKG (In office) [facility] Work Phone: Start: 02-06-2017 End: 02-06-2017 Follow Up Appt 3 months Follow Up Appt 3 months [facility] Work Phone: Start: 02-06-2017 End: 02-06-2017 MMM MMM [facility] Work Phone: Start: 12-27-2016 End: 12-27-2016 *Hepatic Function Panel *Hepatic Function Panel [facility] Work Phone: Start: 12-27-2016 End: 12-27-2016 Follow Up Appt 4 months Follow Up Appt 4 months [facility] Work Phone: Start: 12-27-2016 End: 12-27-2016 Lipid 1996 panel *Lipid Profile CC PCP [facility] Work Phone: Start: 12-27-2016 End: 12-27-2016 MMM MMM [facility] Work Phone: Start: 2016 Diabetes Screening Diabetes Screening [facility] Start: 2016 Screening for malignant neoplasm of colon [facility] Start: 1990 Hepatitis B Vaccine (1 of 3 - 19+ 3-dose series) Hepatitis B Vaccine (1 of 3 - 19+ 3-dose series) [facility] Start: 1990 Urine microalbumin profile DTaP,Tdap,Td Vaccine (1 - Tdap) [facility] Start: 1989 Annual PCP Team Chronic Disease Visit Annual PCP Team Chronic Disease Visit [facility] Start: 1989 BP Controlled (<130/80) BP Controlled (<130/80) [facility] Start: 1989 Hepatitis C screening Hepatitis C Screening [facility] Start: 1989 HIV screening HIV Screening [facility] Start: 1977 Pneumococcal vaccination Pneumococcal Vaccine (1 of 2 - PCV) [facility] Alanine aminotransfe rase [Enzymatic activity/volume] in Serum or Plasma [facility] Albumin [Mass/volume ] in Serum or Plasma [facility] Alkaline phosphatase [Enzymatic activity/volume] in Serum or Plasma [facility] Amphetamine [Mass/vo lume] in Urine [facility] Amphetamines [Presen ce] in Urine by Screen method >1000 ng/mL [facility] Anion gap measurement [facility] Aspartate aminotrans ferase [Enzymatic activity/volume] in Serum or Plasma [facility] Benzodiazepine measu rement, urine [facility] Benzodiazepine measu rement, urine [facility] Bilirubin, total measurement [facility] BUN/Creatinine ratio [facility] Calcium [Mass/volume ] in Serum or Plasma [facility] Carbon dioxide, tota l [Moles/volume] in Serum or Plasma [facility] Cardiac event recording [facility] Chloride [Moles/volu me] in Serum or Plasma [facility] Cholesterol [Mass/vo lume] in Serum or Plasma [facility] Cholesterol [Mass/vo lume] in Serum or Plasma [facility] Cholesterol in HDL [Mass/volume] in Serum or Plasma [facility] Cholesterol in HDL [Mass/volume] in Serum or Plasma [facility] Cholesterol in LDL [Mass/volume] in Serum or Plasma [facility] Cobalamin (Vitamin B 12) [Mass/volume] in Serum or Plasma [facility] Cocaine measurement, urine [facility] Cocaine measurement, urine [facility] Creatinine [Moles/vo lume] in Serum or Plasma [facility] Erythrocyte mean cor puscular volume determination [facility] Ethanol [Mass/volume ] in Serum or Plasma [facility] fentaNYL [Presence] in Urine by Screen method [facility] Folate [Moles/volume ] in Serum or Plasma [facility] Glucose [Mass/volume ] in Serum or Plasma [facility] Hematocrit [Volume F raction] of Blood [facility] Hemoglobin [Mass/vol ume] in Blood [facility] Hemoglobin A1c/Hemoglobin.total in Blood [facility] Hemoglobin A1c/Hemoglobin.total in Blood [facility] Leukocytes [#/volume] in Blood [facility] Low density lipoprot ein cholesterol measurement [facility] Magnesium [Mass/volu me] in Serum or Plasma [facility] Mean corpuscular hem oglobin concentration determination [facility] Mean corpuscular hem oglobin determination [facility] Measurement of 3,4-methylenedioxymethamphetam ine in urine [facility] Measurement of renal function [facility] Methadone measurement, urine [facility] Methadone measurement, urine [facility] Neutrophil count [facility] Neutrophil percent differential count [facility] Partial thromboplast in time, activated [facility] Work Phone: Patient Education [facility] Work Phone: Patient referral [facility] Work Phone: pH of Urine [facility] Phencyclidine [Prese nce] in Urine [facility] Phencyclidine [Prese nce] in Urine [facility] Platelets [#/volume] in Blood [facility] Potassium [Moles/vol ume] in Serum or Plasma [facility] Red blood cell count [facility] Red cell distributio n width determination [facility] Sodium [Moles/volume ] in Serum or Plasma [facility] Total cholesterol:HD L ratio measurement [facility] Total protein measurement [facility] Triglycerides measurement [facility] Triglycerides measurement [facility] Urea nitrogen [Mass/ volume] in Serum or Plasma [facility] Urine barbiturate measurement [facility] Urine cannabinoid measurement [facility] Urine cannabinoid measurement [facility] Urine opiate measurement [facility] Urine opiate measurement [facility] Vitamin D, 25-hydrox y measurement [facility] VLDL cholesterol measurement [facility] VLDL cholesterol measurement [facility] Payers Date Payer Category Payer Self-pay [id number] 2019 Unknown [id number] 2019 Unknown MMO MMO [employer] PPO [id number] 2019-Present [phone] [address] [place] [address] PPO [id number] Medicaid MEDICAID [id number] Private Health Insurance [facility] [id number] Unknown [id number] 62 Unknown [id number] 62 Unknown [id number] 62 Unknown [id number] 62 Unknown [id number] 62 Unknown [id number] 62 Unknown [id number] 62 Unknown [id number] 62 Unknown [id number] 62 Unknown [id number] 62 Unknown [id number] 62 Unknown [id number] 62 Unknown [id number] 62 Unknown [id number] 62 Unknown [id number] 62 Social History Date Type Detail Facility Start: 04-27-2022 End: 01-31-2024 Tobacco smoking status NHIS Unknown if ever smoked [facility] Start: 12-31-2020 Rare [facility] Start: 12-31-2020 None [facility] Start: 01-21-2021 Spouse/ Signif icant Other [facility] Start: 01-21-2021 Cigarettes [facility] Start: 1970 Sex Assigned At Male [facility] Start: 03-17-2024 End: 02-11-2025 Tobacco smoking status NHIS Smokes tobacco daily [facility] Start: 03-17-2024 Tobacco use and exposure Smokeless tobacco non-user [facility] Start: 03-17-2024 Alcohol intake Not Asked [facility] Start: 10-27-2020 End: 03-17-2024 History of Social function [facility] Start: 10-27-2020 End: 03-17-2024 Tobacco use panel [facility] National Score (1-100), lower number is lower risk Not on file [facility] Start: 1970 Sex Assigned At Not on file [facility] Start: 02-11-2025 End: 02-11-2025 Sex Male (finding) [facility] Medical Equipment Procedure Code Equipment Code Equipment Origin al Text Equipment Identifier Dates ([id number]) Drug-eluting coronary artery stent, bioabsorbable-polyme r-coated ()[id number] FDA Start: 11-18-2021 Pen Needle, Diab etic (Bd Ultra-Fine Tomasa Pen Needle) 32 gauge x 5/32 needle Start: 05-27-2021 Drug-eluting coronary artery stent, [id number] lymer-coated ()[id number] FDA Start: 12-25-2023 Drug-eluting coronary artery stent, [id number] lymer-coated ()[id number] FDA Start: 12-25-2023 Goals Date Patient Goal Desired Activity /State Functional Status Date Assessment Result Facility 02-11-2025 Functional status Chair [facility] Work Phone: 12-26-2023 Functional status [facility] [facility] Work Phone: 06-26-2022 Functional status Chair [facility] Work Phone: 04-27-2022 Functional status Ambulates [facility] Work Phone: Mental Status Date Assessment Result Facility 02-11-2025 Cognitive function Voice/Name [facility] Work Phone: 02-10-2025 Cognitive function Appropriate;Cooperativ e [facility] Work Phone: 12-26-2023 Cognitive function Voice/Name [facility] Work Phone: 12-24-2023 [facility] Work Phone: 11-21-2023 Cognitive function [facility]Name [facility] Work Phone: 06-26-2022 Cognitive function Voice/Name [facility] Work Phone: 06-26-2022 Cognitive function Voice/Name [facility] Work Phone: 04-27-2022 Cognitive function Voice/Name [facility] Work Phone: 04-27-2022 Cognitive function Voice/Name [facility] Work Phone: Clinical Notes 11-21-2023 to 02-11-2025 Note Date & Type Note Facility 02-11-[address] [facility] 02-11-2025 Note [facility] Medical Records Department [address] [place] [address] Discharge Summary 02/11/25 1421 MR#: [id number] Acct: [id number] Name: ALTONYA ELDER Rep #: [id number] : 1970 54 From: Brennon Juarez DO PCP: Dr. Beka Bowie MD Status:ADM IN Location: ICU [id number] Providers Date of Admission: 02/11/25 Primary Care Physician: Dr. Beka Bowie MD Consultations 02/11/25 00:32 Consult: Tele-Neurology Routine Consulting Provider: [facility] Reason for Consult: Acute Ischemic Stroke/TIA EMERGENT Consult: No MD Notified: Yes Date Notified: 02/11/25 Time Notified: 00:07 Method of Notification: ED Physician Initiated Method of Consult:: Telemedicine Nursing Unit Staff Notify [facility] of Tele-Neurology Consult: Yes Reason For Visit: LVO OF THE A1 SEGMENT OF THE RIGHT ARELY PLUS RIGHT Diagnosis Discharge Diagnosis (1) CVA (cerebral vascular accident): Status: Acute Code(s): I63.9 - Cerebral infarction, unspecified Plan: CTA shows Large vessel occlusion of the A1 segment of the right anterior cerebral artery, with retrograde filling via the anterior communicating artery. Small caliber distal right ARELY. Neurology recs per ED note (formal note not yet available in [facility]) who advised to give ASA and clopidogrel (clopidogrel not given as pt had already taken it that AM) and to admit to the ICU. Neurology felt the LVO was likely a chronic LVO. Continue ASA, clopidogrel, HIS. No acute indication for transfer per neurology. MRI brain shows an acute infarct. Onset was 02/08 Neurology recommending continuing DAPT, statin. Event monitor. (2) Pneumonia: Status: Acute Code(s): J18.9 - Pneumonia, unspecified organism Plan: Chest x-ray personally viewed and showed bilateral pulmonary infiltrates. Will add ceftriaxone and azithromycin. DC doxycycline. Pulmonary toilet. Strep and legionella antigens negative. Check SCx. DC with levofloxacin (3) Uncontrolled hypertension: Status: Acute Code(s): I10 - Essential (primary) hypertension Plan: Given delayed presentation of CVA, can resume home medications: amlodipine 10, carvedilol 25 BID, clonidine 0.1 BID, furosemide 60 daily, lisinopril 20 BID, isosorbide 60 BID Add PRN hydralazine Continue previous home medications. I had seen the patient on 10/12 for a SPOT REMOVER for coughing fit then led to a syncopal episode. I had recommended that lisinopril be discontinued at that time, but it appears it has been continued. It is unclear if his cough was lisinopril-induced. So, will continue it for the time being. (4) COPD exacerbation: Status: Chronic Code(s): J44.1 - Chronic obstructive pulmonary disease with (acute) exacerbation Plan: Complicated by pneumonia DC methylpred. Start prednisone for 5 days. BDs Plan DM2: a1c 10.8. Continue glargine and SSI. Obesity class II: complicates care and recovery HLP: continue statin CAD: stable on DAPT, atorvastatin. VTE prophylaxis: SCDs Medications at Discharge Home Medications aspirin 81 mg chewable tablet 81 mg PO DAILY [facility] 04/27/22 loratadine 10 mg tablet 10 mg PO DAILY PRN allergies 06/26/22 amlodipine 10 mg tablet 10 mg PO DAILY blood pressure #90 tabs 06/25/23 lisinopril 20 mg tablet 20 mg PO BID blood pressure #180 tabs 11/26/23 atorvastatin 80 mg tablet 80 mg PO QHS cholesterol #90 tabs 12/28/23 insulin degludec 200 unit/mL (3 mL) subcutaneous pen (Tresiba FlexTouch U-200 insulin) 50 unit (0.25 mL) subcut QHS blood sugar 3 months #22.5 mL 12/28/23 ranolazine 1,000 mg tablet,extended release,12 hr 1,000 mg PO BID heart #60 tabs 01/03/24 clopidogrel 75 mg tablet (Plavix) 75 mg PO DAILY anti platelet #90 tabs 01/15/24 isosorbide mononitrate 60 mg tablet,extended release 24 hr 60 mg PO BID heart #180 TABLETS 01/15/24 nitroglycerin 0.4 mg sublingual tablet 0.4 mg sublingual Q5-15M chest pain #25 tabs 07/22/24 albuterol sulfate 90 mcg/actuation aerosol inhaler 2 puff inhalation 4X/DAY PRN Shortness Of Breath #8.5 grams 09/01/24 potassium chloride 20 mEq tablet,extended release(part/cryst) 20 meq PO BIDCM #60 tabs 10/13/24 carvedilol 25 mg tablet 25 mg PO BIDCM [facility] #180 tabs 10/27/24 clonidine HCl 0.1 mg tablet 0.1 mg PO BID blood pressure #180 tabs 12/15/24 furosemide 20 mg tablet (Lasix) 60 mg (3 x 20 mg) PO DAILY #270 tabs 01/15/25 guaifenesin 1,200 mg tablet, extended release 12 hr (Mucus Relief ER) 600 mg PO BID 02/10/25 insulin lispro 100 unit/mL subcutaneous pen (Humalog KwikPen (U-100) Insulin) 20 unit subcut TIDAC PRN DIABETES 02/10/25 levofloxacin 750 mg tablet 750 mg PO DAILY #5 tabs 02/11/25 prednisone 20 mg tablet 40 mg (2 x 20 mg) PO BREAKFAST #8 tabs 02/11/25 Hospital Course Procedures 2-D Echocardiogram Summary of Care Provided Minutes Spent on Discharge: 32 Hospital Course: Patient presents with slurred speec (more content not included)... [facility] 02-11-[address] [facility] 02-11-2025 Progress note Note Date/Time February 11, 2025 2:21pm [facility] Medical Records Department [address] [place] [address] Progress Note - Hospitalist 02/11/25 0656 MR#: [id number] Acct: [id number] Name: LATONYA ELDER Rep #:[id number] : 1970 54 From: Brennon Juarez DO PCP: Dr. Beka Bowie MD Status:A DM IN Location: ICU CVICU 1- Reason for Visit Reason for Visit: Diagnoses Other specified bacterial agents as the cause of diseases classified elsewhere (02/11/25) Obesity, unspecified (02/11/25) Essential (primary) hypertension (02/11/25) Cerebral infarction, unspecified (02/11/25) Acute bronchitis due to other specified organisms (02/11/25) Chronic obstructive pulmonary disease with (acute) exacerbation (02/11/25) Abnormal findings on diagnostic imaging of skull and head, not elsewhere classified (02/11/25) Subjective Subjective Had slurred speech and difficulty formulating words that began on Sunday. Ongoing, but improved. Objective Data Objective Data Vital Signs: Vital Signs Temp Pulse Resp BP Pulse Ox O2 Del Method 36.8 C 102 H 18 198/133 H 93 Room Air 02/11/25 00:38 02/11/25 06:00 02/11/25 06:00 02/11/25 06:00 02/11/25 06:00 02/11/25 06:00 Oxygen Delivery Method Room Air Weight: 107.9 kg Body Mass Index (BMI) 36.1 Intake & Output: Intake and Output for Last 24 Hours 02/09/25 02/10/25 02/11/25 23:59 23:59 23:59 Intake Total 50 / 50 1405 / 1405 Output Total 2500 / 2500 Balance 50 / 50 -1095 / -1095 Lab / Micro Data 02/10/25 18:11 02/10/25 18:11 Labs: Laboratory Results - last 24 hr 02/10/25 18:11: WBC 9.4, RBC 4.92, Hgb 13.5, Hct 41.1, MCV 83.5, MCH 27.4, MCHC 32.8, RDW Std Deviation 42.5, RDW Coeff of Narcisa 13.9, Plt Count 317, MPV 10.6, Immature Gran % (Auto) 0.300, Neut % (Auto) 61.8, Lymph % (Auto) 25.5, [place] % (Auto) 9.2, Eos % (Auto) 2.4, Baso % (Auto) 0.8, Absolute Neuts (auto) 5.8, Absolute Lymphs (auto) 2.41, Nucleated RBC % 0, Sodium 137, Potassium 4.3, Chloride 102, Carbon Dioxide 23.1, Anion Gap 12, BUN 24 H, Creatinine 1.09, Estim Creat Clear Calc 93.49, Est GFR (MDRD) Non-Af 81, BUN/Creatinine Ratio 22.0 H, Glucose 255 H, Calcium 9.1, Troponin T High Sens 25 H, NT pro BNP II 709, TSH 3.160, Free T4 1.20 02/10/25 18:16: POC Glucose 234 H 02/10/25 18:48: Lactic Acid 1.9 02/10/25 20:11: Troponin T Hi Sens 2 Hr 24 H 02/11/25 01:29: Hemoglobin A1c 10.8, Vitamin B12 573, Serum Folate 7.12, TSH 0.973, Ethyl Alcohol < 10.1 02/11/25 02:30: Urine Opiates Screen NEGATIVE, U Buprenorphine Qual NEGATIVE, UrOxycodone Screen NEGATIVE, Urine Methadone Screen NEGATIVE, Urine Fentanyl Screen NEGATIVE, Ur Barbiturates Screen NEGATIVE, Ur Phencyclidine Scrn NEGATIVE, Ur Amphetamines Screen NEGATIVE, U Benzodiazepines Scrn NEGATIVE, Urine Cocaine Screen NEGATIVE, U Cannabinoids Screen NEGATIVE 02/11/25 05:39: POC Glucose 435 H 02/11/25 05:44: Triglycerides 76, Cholesterol 215 H, LDL Cholesterol, Calc 160, VLDL Cholesterol 15, HDL Cholesterol 40, Cholesterol/HDL Ratio 5.44 ABG Data ABG results: ABG 02/10/25 19:09 Specimen Type TAMIKA Sample Site Not entered VBG pH 7.38 VBG pO2 52 H VBG HCO3 28 H VBG Total CO2 30 VBG O2 Sat (Calc) 85 H VBG Base Excess 3 POC Mix VBG pCO2 Pt Tmp 47.6 O2 Delivery Device Room Air Radiography Diagnostic Testing: Radiology Impression Chest X-Ray 02/10/25 18:11 IMPRESSION: Diffuse bilateral pulmonary infiltrates. Differential includes diffuse infection versus inflammatory process within the lungs. Follow-up until complete resolution is recommended. These findings are new since prior examination. Reading Location: [id number] Brain CT 02/10/25 18:31 IMPRESSION: 1.9 by 1.1 x 1.3 cm hypodense area seen within the deep white matter along the right lateral convexity. This is new since prior examination. Differential possibility includes, but not limited to acute/subacute infarct versus intracranial mass. Recommend MRI brain for further evaluation at this time. Red Alert: 1.9 by 1.1 x 1.3 cm hypodense area seen within the deep white matter along the right lateral convexity. This is new since prior examination. Differential possibility includes, but not limited to acute/subacute infarct versus intracranial mass. Recommend MRI brain for further evaluation at this time. The critical information above was relayed directly by me by telephone to Jasbir Curry on 02/10/2025 at 8:00 pm with readback verification. Reading Location: [facility] Head/Neck CTA 02/10/25 18:31 IMPRESSION: 1. 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 Small caliber distal right ARELY. Consider neuro IR consultation and/or neurology consult for discussion of endovascular thrombectomy versus anticoagulation. 2. Approximately 50% stenosis of the left carotid artery by NASCET criteria. Dr. Thompson discussed these findings via telephone with Dr. Curry at 8:50 pm on 02/10/25. Reading Location: [facility] Physical Exam Const alert and no apparent distress Constitutional Narrative: up in chair HEENT head/scalp atraumatic and moist oral mucous membranes Neuro moves all extremities and no focal motor deficits Sensorium / Orientation: awake and alert Speech: speech normal Assessment & Plan Assessment/Plan (1) CVA (cerebral vascular accident): PLAN: CTA shows Large vessel occlusion of the A1 segment of the right anterior cerebral artery, with retrograde filling via the anterior communicating artery. Small caliber distal right ARELY. Neurology recs per ED note (formal note not yet available in [facility]) who advised to give ASA and clopidogrel (clopidogrel not given as pt had already taken it that AM) and to admit to the ICU. Neurology felt the LVO was likely a chronic LVO. Continue ASA, clopidogrel, HIS. No acute indication for transfer per neurology. MRI brain shows an acute infarct. Onset was 02/08 Neurology recommending continuing DAPT, statin. Event monitor. (2) Pneumonia: PLAN: Chest x-ray personally viewed and showed bilateral pulmonary infiltrates. Will add ceftriaxone and azithromycin. DC doxycycline. Pulmonary toilet. Strep and legionella antigens negative. Check SCx. DC with levofloxacin (3) Uncontrolled hypertension: PLAN: Given delayed presentation of CVA, can resume home medications: [id number], carvedilol 25 BID, clonidine 0.1 BID, furosemide 60 daily, lisinopril 20 BID, isosorbide 60 BID Add PRN hydralazine Continue previous home medications. I had seen the patient on 10/12 for a SPOT REMOVER for coughing fit then led to a syncopal episode. I had recommended that lisinopril be discontinued at that time, but it appears it has been continued. It is unclear if his cough was lisinopril-induced. So, will continue it for the time being. (4) COPD exacerbation: PLAN: Complicated by pneumonia DC methylpred. Start prednisone for 5 days. BDs PLAN: Plan DM2: a1c 10.8. Continue glargine and SSI. Obesity class II: complicates care and recovery HLP: continue statin CAD: stable on DAPT, atorvastatin. VTE prophylaxis: SCDs 02/11/25 1421 <Electronically signed by Brennon Juarez DO> Cosigner Signature (if applicable): CC: ~ Signed [facility] Work Phone: [phone]) 244-527403-26-2025 History and physical note Author Mitchell Lucero [facility] Note Date/Time February 11, 2025 6:4 2am [facility] Medical Records Department [address] [place] [address] H&P Exam - Hospitalist 02/10/25 2311 MR#: [id number] Acct: [id number] Name: LATONYA ELDER Rep #:[id number] : 1970 54 From: Mitchell Marr DO PCP: Dr. Beka Bowie MD Status:A DM IN Location: ICU CVICU20 1-1 HPI - General General Date of Admission: 02/11/25 Date of Service: 02/10/25 Chief Complaint: Slurred Speech, Brain Fog, Chest Pain and Cough. HPI Narrative LATONYA ELDER, is a 54 M with a past medical history of essential hypertension; on carvedilol, amlodipine, lisinopril and clonidine, hyperlipidemia; on high-dose atorvastatin, obesity; with BMI of 36.3 this admission, IDDM; of unknown controlon degludec and humalog TID, history of HONK, history of tobacco abuse (quit 09/2024); with subsequent asthma/COPD, CAD; s/p stent (2003) and NSTEMI (2016, 2018 & 2020) on BASA and Plavix, Ischemic Cardiomyopathy; with chronic chest pain on ranolazine, ISMO and prn NTG, history of CHF; with peripheral edema, history of bilateral LE DVT's; previously on apixaban, history of sepsis, history of appendectomy, history of hernia; s/p repair (2008), remote history ofumbilical hernia repair (1971), history of migraine & cluster headaches, historyof sinusitis, history of vitamin D deficiency, history of thrush, seasonal allergies, listed allergy to Augmentin (rash), listed allergy to ticagrelor (SOB), listed allergy to codeine (nausea), OA; with chronic Left shoulder pain and history of neck surgery plus history of admission here from October 12, 2024 to October 13, 2024 for treatment of AE COPD with Acute Bronchitis, mild AE CHF with elevated troponin and Respiratory Insufficiency who presents to [facility] ER complaining of who presents to [facility] ER complaining of slurred speech and brain fog since Saturday, February 08, 2025. Mr. Elder and his significant other reported that his symptoms have been [id number] for the past several days and since things were not getting better they decided to come in for further evaluation and treatment. He also admits to intermittent chest discomfort that is pressure-like, heavy, moderate, nonradiating with associated shortness of breath and wheezing with cough productive of increasing yellowish sputum, but he denies chest pain at this time. He denies any recent sick contacts or similar previous episodes plus he states he has been taking his medications as prescribed. He admits to associated headache and lightheadedness with a feeling like he is drifting to the Left but he is able to compensate in addition to mildly dysarthric speech. He denies related fever, chills, nausea, vomiting, diarrhea, constipation, abdominal pain, palpitations, heart racing, dysuria, hematuria, rash or back pain but he does admit to taking 2 Excedrin twice daily routinely. In the ER he was noted to have CTA of the head and neck with IV contrast revealing Large Vessel Occlusion of the A1 segment of the Right anterior cerebral artery with retrograde filling via the anterior communicating artery with small caliber distal Right ARELY with radiologist recommending neuro IR consultation for discussion of endovascular thrombectomy versus anticoagulation and ~50% stenosis of the Left carotid artery by NASCET criteria with a corresponding CT of the brain without contrast revealing ~1.9 cm x ~1.1 cm x ~1.3 cm hypodense area seen within the deep white matter along the Right lateralconvexity which was new since prior examination with differential possibilities including: Acute/subacute CVA versus intracranial mass with MRI of the brain recommended for further evaluation at this time. He was also noted to have Uncontrolled Hypertension of 186/124 mmHg noted shortly after admission. The ERphysician then spoke with [facility], Dr. Barragan, who reviewed the case and recommended giving patient aspirin and Plavix in the place in the ICU overnight for close monitoring with his note going on to state that, if patient decompensates to re-page them and they will reevaluate at that point but she does not feel like this is a chronic large vessel occlusion - even though the radiologist notes this is a new finding with recommendation for neuro IR for thrombectomy, and this patient has no previous history of CVA or similar previous episodes. Patient already took Plavix this morning and therefore an additional dose was not given in the ER. He was also started on antibiotics forsuspected Acute Bacterial Bronchitis with mild AE COPD. He was then reluctantlyadmitted to the ICU for ongoing care for a stay that is expected to extend beyond 2 midnights. [facility] Medical History History of DVT (deep vein thrombosis) Respiratory insufficiency Elevated troponin Acute bronchitis COPD exacerbation Congestive heart failure Acute sinusitis, unspecified Left shoulder pain Insulin dependent diabetes mellitus Coronary artery disease Essential hypertension Cluster headache Migraine Headache Diabetes Obesity Community acquired pneumonia Smoker Asthma Myocardial infarct Ischemic cardiomyopathy Obesity (BMI 30.0-34.9) Chronic obstructive pulmonary disease (COPD) Nicotine dependence COPD (chronic obstructive pulmonary disease) Hyperlipidemia History of non-ST elevation myocardial infarction (NSTEMI) (11/22/20) Atherosclerosis of [place] coronary artery of [place] heart without angina pectoris Non-ST elevation NE (NSTEMI) Home Medications ?Medication ?Instructions ?Recorded ?Last Taken ?Type aspirin 81 mg chewable tablet 81 mg PO DAILY heart hea lth 04/27/22 02/10/25 History loratadine 10 mg tablet 10 mg PO DAILY PRN allergies 06/26/22 Unknown History amlodipine 10 mg tablet 10 mg PO DAILY blood pressur e #90 06/25/23 02/10/25 Rx tabs lisinopril 20 mg tablet 20 mg PO BID blood pressure #180 11/26/23 Unknown Rx tabs atorvastatin 80 mg tablet 80 mg PO QHS cholesterol #90 tabs 12/28/23 02/09/25 Rx insulin degludec 200 unit/mL (3 50 unit (0.25 mL) subc ut QHS blood 12/28/23 02/09/25 Rx mL) subcutaneous pen (Tresiba sugar 3 months #22.5 mL FlexTouch U-200 insulin) ranolazine 1,000 mg 1,000 mg PO BID heart #60 ta bs 01/03/24 02/10/25 Rx tablet,extended release,12 hr clopidogrel 75 mg tablet (Plavix) 75 mg PO DAILY anti platelet #90 01/15/24 02/10/25 Rx tabs isosorbide mononitrate 60 mg 60 mg PO BID heart #180 T ABLETS 01/15/24 02/10/25 Rx tablet,extended release 24 hr nitroglycerin 0.4 mg sublingual 0.4 mg sublingual Q5-1 5M chest 07/22/24 02/08/25 Rx tablet pain #25 tabs albuterol sulfate 90 mcg/actuation 2 puff inhalation 4 X/DAY PRN 09/01/24 Unknown Rx aerosol inhaler Shortness Of Breath #8.5 gra ms potassium chloride 20 mEq 20 meq PO BIDCM #60 tabs Unknown Rx tablet,extended release(part/cryst) carvedilol 25 mg tablet 25 mg PO BIDCM [facility] health #180 10/27/24 02/10/25 Rx tabs clonidine HCl 0.1 mg tablet 0.1 mg PO BID blood pressu re #180 12/15/24 02/10/25 Rx tabs furosemide 20 mg tablet (Lasix) 60 mg (3 x 20 mg) PO D AILY #270 01/15/25 02/10/25 Rx tabs guaifenesin 1,200 mg tablet, 600 mg PO BID 02/10/25 History extended release 12 hr (Mucus Relief ER) insulin lispro 100 unit/mL 20 unit subcut TIDAC PRN DI ABETES 02/10/25 02/10/25 History subcutaneous pen (Humalog KwikPen (U-100) Insulin) Allergy/AdvReac Type Severity Reaction Status Date / Time amoxicillin trihydrate (From Allergy Rash Verified 02/10/25 17:57 Augmentin) potassium clavulanate (From Allergy Rash Verified 02/10/25 17:57 Augmentin) ticagrelor (From Brilinta) Allergy Shortness Verified 02/10/25 17:57 of breath codeine AdvReac Nausea Verified 02/10/25 17:57 Family History Sister Myocardial infarction, Onset Age: 41 Diabetes Mother COPD (chronic obstructive pulmonary disease) Asthma Rheumatoid arthritis CVA (cerebral vascular accident) Hypertension Grandmother Diabetes Surgical History History of coronary artery stent placement (12/25/23) History of hernia repair (2008) History of umbilical hernia repair (1971) History of neck surgery History of appendectomy Social History household members: spouse housing: house Smoking Status: Current every day smoker tobacco type: cigarettes Tobacco: How many years used: 20 Electronic Cigarette Use: not used second hand exposure: Yes alcohol intake: current alcohol intake frequency: 0-2 drinks per day Alcohol type: beer substance use type: does not use caffeine: Yes Type: carbonated beverages Number of servings: 2 and tea Number of servings: 6 what type of physical activity do you participate in: none ROS ROS Narrative Review of Systems: Constitutional: Patient denies fever or chills. Eyes: Patient denies changes vision or discharge from eyes. ENT: Patient denies runny nose, sore throat or ear pain. Resp: Patient admits to shortness of breath and cough productive of yellowish sputum with wheezing as per HPI. CV: Patient admits to intermittent heaviness in his chest but he denies palpitations, heart racing or lower extremity edema. GI: Patient denies abdominal pain, nausea, vomiting, diarrhea or constipation. : Patient denies dysuria or hematuria. MSK: Patient denies arthralgias or myalgias. Skin: Patient denies rash, abscess, wounds or jaundice. Psych: Patient denies symptoms of uncontrolled depression or anxiety. Neuro: Patient admits to headache, dysarthric speech, lightheadedness; with patient feeling like he is leaning to the Left but compensating but he denies paresthesias. Allergies: Patient denies lip swelling, tongue swelling or urticaria. Hematology: Patient denies easy bleeding or easy bruisability. Endocrinology: Patient admits to polyuria and polydipsia but he denies polyphagia. 14 point ROS otherwise negative except for positives noted above in HPI. Vital Signs Vital Signs Vital Signs: 02/10/25 17:56 02/10/25 18:08 02/10/25 18:12 Temperature 98.7 F Temperature Source Oral Pulse Rate 97 Respiratory Rate 18 Respiratory Effort Short of Breath Respiratory Pattern Blood Pressure 167/109 H Blood Pressure Mean 128 Blood Pressure Source Blood Pressure Position Blood Pressure Location Pulse Ox 95 Oxygen Delivery Method Room Air Room Air 02/10/25 18:46 02/10/25 18:53 02/10/25 20:00 Temperature Temperature Source Pulse Rate 88 88 83 Respiratory Rate 20 H Respiratory Effort Respiratory Pattern Normal Blood Pressure 173/97 H 170/116 H Blood Pressure Mean 122 134 Blood Pressure Source Blood Pressure Position Blood Pressure Location Pulse Ox 98 94 Oxygen Delivery Method Room Air Room Air 02/10/25 21:00 02/10/25 21:10 02/10/25 21:23 Temperature 98.7 F Temperature Source Oral Pulse Rate 86 89 85 Respiratory Rate 24 H 27 H Respiratory Effort Respiratory Pattern Blood Pressure 174/116 H 184/119 H Blood Pressure Mean 135 140 Blood Pressure Source Monitor Blood Pressure Position Semi-Fowlers Semi-Fowlers Blood Pressure Location Left Arm Left Arm Pulse Ox 97 95 93 Oxygen Delivery Method Room Air Room Air Room Air 02/10/25 21:40 02/10/25 21:55 02/10/25 22:00 Temperature Temperature Source Pulse Rate 87 89 Respiratory Rate 21 H 22 H Respiratory Effort Respiratory Pattern Blood Pressure 177/131 H 191/135 H Blood Pressure Mean 146 153 Blood Pressure Source Monitor Monitor Blood Pressure Position Semi-Fowlers Semi-Fowlers Blood Pressure Location Left Arm Right Forearm Pulse Ox 95 93 95 Oxygen Delivery Method Room Air Room Air Room Air 02/10/25 22:10 02/10/25 22:15 02/10/25 22:30 Temperature Temperature Source Pulse Rate 86 Respiratory Rate 22 H Respiratory Effort Respiratory Pattern Blood Pressure 183/132 H 188/133 H 188/128 H Blood Pressure Mean 149 151 148 Blood Pressure Source Blood Pressure Position Blood Pressure Location Pulse Ox 93 Oxygen Delivery Method 02/10/25 22:34 02/10/25 23:00 02/10/25 23:00 Temperature Temperature Source Pulse Rate 93 84 Respiratory Rate 24 H 21 H Respiratory Effort Respiratory Pattern Tachypnea Blood Pressure 186/124 H Blood Pressure Mean 144 Blood Pressure Source Blood Pressure Position Blood Pressure Location Pulse Ox 95 96 Oxygen Delivery Method Room Air Room Air Weight Weight: 238 lb 9.6 oz Body Mass Index (BMI) 36.3 Physical Exam Const alert, oriented x3 and no apparent distress Constitutional Narrative: Obese with patient appearing much older than his stated age. General Appearance: cooperative HEENT normocephalic, head/scalp atraumatic, hearing grossly normal bilaterally and moist oral mucous membranes Eyes PERRL and EOMs intact bilaterally Neck no lymphadenopathy and supple Resp Resp Narrative: Diminished breath sounds throughout. Cardio regular rate and regular rhythm GI normal to inspection, nondistended, normoactive bowel sounds, soft to palpation,non-tender and non-distended GI Narrative: Obese. Extremity normal to inspection, full ROM and no clubbing, cyanosis or edema Skin Skin Narrative: Patient has no evidence of rash, abscess, wounds or jaundice. Neuro oriented x3, CN's II-XII intact bilaterally and moves all extremities Neuro Narrative: Patient has mildly dysarthric speech with some minor difficulty with word finding. Sensorium / Orientation: awake, alert, oriented to person, oriented to place andoriented to time Speech: speech normal Motor Exam: strength 5/5 throughout Psych affect normal Results Medical Records Data Attestation: I reviewed the patient's medical records Lab / Micro Data Attestation: I reviewed the patient's lab results. 02/10/25 18:11 02/10/25 18:11 Labs: Laboratory Results - last 24 hr 02/10/25 18:11: WBC 9.4, RBC 4.92, Hgb 13.5, Hct 41.1, MCV 83.5, MCH 27.4, MCHC 32.8, RDW Std Deviation 42.5, RDW Coeff of Narcisa 13.9, Plt Count 317, MPV 10.6, Immature Gran % (Auto) 0.300, Neut % (Auto) 61.8, Lymph % (Auto) 25.5, [place] % (Auto) 9.2, Eos % (Auto) 2.4, Baso % (Auto) 0.8, Absolute Neuts (auto) 5.8, Absolute Lymphs (auto) 2.41, Nucleated RBC % 0, Sodium 137, Potassium 4.3, Chloride 102, Carbon Dioxide 23.1, Anion Gap 12, BUN 24 H, Creatinine 1.09, Estim Creat Clear Calc 93.49, Est GFR (MDRD) Non-Af 81, BUN/Creatinine Ratio 22.0 H, Glucose 255 H, Calcium 9.1, Troponin T High Sens 25 H, NT pro BNP II 709, TSH 3.160, Free T4 1.20 02/10/25 18:16: POC Glucose 234 H 02/10/25 18:48: Lactic Acid 1.9 02/10/25 20:11: Troponin T Hi Sens 2 Hr 24 H ABG Data ABG results: ABG 02/10/25 19:09 Specimen Type TAMIKA Sample Site Not entered VBG pH 7.38 VBG pO2 52 H VBG HCO3 28 H VBG Total CO2 30 VBG O2 Sat (Calc) 85 H VBG Base Excess 3 POC Mix VBG pCO2 Pt Tmp 47.6 O2 Delivery Device Room Air Imaging Radiology Impression Chest X-Ray 02/10/25 18:11 IMPRESSION: Diffuse bilateral pulmonary infiltrates. Differential includes diffuse infection versus inflammatory process within the lungs. Follow-up until complete resolution is recommended. These findings are new since prior examination. Reading Location: [facility] Brain CT 02/10/25 18:31 IMPRESSION: 1.9 by 1.1 x 1.3 cm hypodense area seen within the deep white matter along the right lateral convexity. This is new since prior examination. Differential possibility includes, but not limited to acute/subacute infarct versus intracranial mass. Recommend MRI brain for further evaluation at this time. Red Alert: 1.9 by 1.1 x 1.3 cm hypodense area seen within the deep white matter along the right lateral convexity. This is new since prior examination. Differential possibility includes, but not limited to acute/subacute infarct versus intracranial mass. Recommend MRI brain for further evaluation at this time. The critical information above was relayed directly by me by telephone to Jasbir Curry on 02/10/2025 at 8:00 pm with readback verification. Reading Location: [facility] Head/Neck CTA 02/10/25 18:31 IMPRESSION: 1. 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 Small caliber distal right ARELY. Consider neuro IR consultation and/or neurology consult for discussion of endovascular thrombectomy versus anticoagulation. 2. Approximately 50% stenosis of the left carotid artery by NASCET criteria. Dr. Thompson discussed these findings via telephone with Dr. Curry at 8:50 pm on 02/10/25. Reading Location: [facility] Assessment & Plan Assessment/Plan (1) Abnormal computed tomography angiography of head: (2) Acute CVA (cerebrovascular accident): (3) Uncontrolled hypertension: (4) COPD exacerbation: (5) Acute bacterial bronchitis: (6) Obesity (BMI 30-39.9): PLAN: Plan 1. CTA of the head and neck with IV contrast revealing Large Vessel Occlusion of the A1 segment of the Right anterior cerebral artery with retrograde filling via the anterior communicating artery with small caliber distal Right ARELY with radiologist recommending neuro IR consultation for discussion of endovascular thrombectomy versus anticoagulation and ~50% stenosis of the Left carotid arteryby NASCET criteria - Admit to ICU as per [facility] recommendations. Check MRI of the brain with IV contrast to confirm suspicion of acute large vessel occlusion. Patient was already on baby aspirin, clopidogrel and hide-dose atorvastatin at time of admission which would indicate that he is failing maximal medical therapy and would likely benefit from transfer to tertiary care center for definitive treatment of this issue given his [id number]-[id number] slurred speech, brain fog and headache. If patient worsens [facility] will be recontacted to reconsider transfer as he will likely not able to be discharged home without formal neurologic evaluation and definitive treatment. 2. CT of the brain without contrast revealing ~1.9 cm x ~1.1 cm x ~1.3 cm hypodense area seen within the deep white matter along the Right lateral convexity which was new since prior examination with differential possibilities including: Acute/subacute CVA versus intracranial mass with MRI of the brain recommended for further evaluation at this time complicating #1 in the setting of a known history of migraine & cluster headaches - MRI of the brain with IV contrast pending in the a.m. to confirm suspicion of acute CVA. Check carotid Doppler to evaluate for stenosis that may not be apparent on CTA. Check echocardiogram to evaluate LVEF. Check Lipid Profile, B12, Folate, ASHLEY and UDS to expand his neurologic evaluation. 3. Uncontrolled Hypertension of 186/124 mmHg noted shortly after admission attributable to #1 & #2 - Allow for permissive hypertension with suspected AcuteCVA to prevent worsening of his symptoms. Check TSH. 4. Mild AE COPD with Acute Bacterial Bronchitis in the setting of a known history of tobacco abuse (quit 09/2024); with subsequent asthma/COPD adding to the medical complexity of #1 - #3 - Continue steroids with IV methylprednisolone. Start treatment with IV doxycycline plus probiotic. Give scheduled and as needed nebulizers. Continue guaifenesin scheduled 600 mg p.o. twice daily. 5. Obesity; with BMI of 36.3 this admission adding to the burden of disease outlined from #1 - #4 - Weight loss will be recommended. Check TSH. 6. History of admission here from October 12, 2024 to October 13, 2024 for treatment of AE COPD with Acute Bronchitis, mild AE CHF with elevated troponin and Respiratory Insufficiency - Noted. 7. Hyperlipidemia; on high-dose atorvastatin - Continue statin as outlined above and check Lipid Profile. 8. IDDM; of unknown control on degludec 50U sq HS and insulin lispro 20U sq TIDwith history of HONK - Keep NPO for now except ice chips, sips and medications with evolving CVA and suspected acute LVO. Check FSBS q. 6 hours plus lowest intensity SSI. Check HgbA1c to objectively assess quality of diabetic control. 9. CAD; s/p stent (2003) and NSTEMI (2016, 2018 & 2020) on BASA and Plavix - Continue home regimen. 10. Ischemic Cardiomyopathy; with chronic chest pain on ranolazine - Maintain ranolazine as previous. 11. ISMO and prn NTG - Continue prn NTG. 12. History of CHF; with peripheral edema - Stable. Echocardiogram pending for#1 & #2. 13. History of bilateral LE DVT's; on apixaban - Noted. 14. History of sepsis - Noted with no signs of recurrence at this time. 15. History of appendectomy - Noted. 16. History of hernia; s/p repair (2008) - Noted. 17. Remote history of umbilical hernia repair (1971) - Noted for the sake of completeness. 18. History of sinusitis - Noted. 19. History of vitamin D deficiency - Check vitamin D level this admission. 20. History of thrush - Noted. 21. Seasonal allergies - Stable. 22. Listed allergy to Augmentin (rash) - Noted. 23. Listed allergy to ticagrelor (SOB) - We will avoid this agent. 24. Listed allergy to codeine (nausea) - Noted. 25. OA; with chronic Left shoulder pain and history of neck surgery - Give acetaminophen prn. 26. DVT/GI prophylaxis - SCD's only to minimize potential conversion to hemorrhagic CVA for #1. Pantoprazole 40 mg PO daily. Total time: Approximately (but not less than) 75 minutes. Charges/Coding Visit Charges Inpatient E&M: 85121 Init Hosp L3 02/11/25 0642 <Electronically signed by Mitchell Deras DO> Cosigner Signature (if applicable): CC: Dr. Mitchell Deras DO; Dr. Beka Bowie MD~ Signed [facility] Work Phone: [phone] [phone] History and physical note [facility] Records Department [address] [place] [address] H&P Exam - Hospitalist 02/10/25 2311 MR#: [id number] Acct: [id number] Name: LATONYA ELDER Rep #:[id number] : 1970 54 From: Mitchell Marr DO PCP: Dr. Beka Bowie MD Status:A DM IN Location: ICU CVICU20 1-1 HPI - General General Date of Admission: 02/11/25 Date of Service: 02/10/25 Chief Complaint: Slurred Speech, Brain Fog, Chest Pain and Cough. HPI Narrative LATONYA ELDER, is a 54 M with a past medical history of essential hypertension; on carvedilol, amlodipine, lisinopril and clonidine, hyperlipidemia; on high-dose atorvastatin, obesity; with BMI of 36.3 this admission, IDDM; of unknown controlon degludec and humalog TID, history of HONK, history of tobacco abuse (quit 09/2024); with subsequent asthma/COPD, CAD; s/p stent (2003) and NSTEMI (2016, 2018& 2020) on BASA and Plavix, Ischemic Cardiomyopathy; with chronic chest pain on ranolazine, ISMO and prn NTG, history of CHF; with peripheral edema, history of bilateral LE DVT's; previously on apixaban, history of sepsis, history of appendectomy, history of hernia; s/p repair (2008), remote history ofumbilical hernia repair (1971), history of migraine & cluster headaches, historyof sinusitis, history of vitamin D deficiency, history of thrush, seasonal allergies, listed allergy to Augmentin (rash), listed allergy to ticagrelor (SOB), listed allergy to codeine (nausea), OA; with chronic Left shoulder pain and history of neck surgery plus history of admission here from October 12, 2024 to October 13, 2024 for treatment of AE COPD with Acute Bronchitis, mild AE CHF with elevated troponin and Respiratory Insufficiency who presents to [facility] ER complaining of who presents to [facility] ER complaining of slurred speech and brain fog since Saturday, February 08, 2025. Mr. Elder and his significant other reported that his symptoms have been [id number] for the past several days and since things were not getting better they decided to come in for further evaluation and treatment. He also admits to intermittent chest discomfort that is pressure-like, heavy, moderate, nonradiating with associated shortness of breath and wheezing with cough productive of increasing yellowish sputum, but he denies chest pain at this time. He denies any recent sick contacts orsimilar previous episodes plus he states he has been taking his medications as prescribed. He admits to associated headache and lightheadedness with a feeling like he is drifting to the Left but he is able to compensate in addition to mildly dysarthric speech. He denies related fever, chills, nausea, vomiting, diarrhea, constipation, abdominal pain, palpitations, heart racing, dysuria, hematuria,rash or back pain but he does admit to taking 2 Excedrin twice daily routinely. In the ER he was noted to have CTA of the head and neck with IV contrast revealing Large Vessel Occlusion of the A1 segment of the Right anterior cerebral artery with retrograde filling via the anterior communicating artery with small caliber distal Right ARELY with radiologist recommending neuro IR c onsultation for discussion of endovascular thrombectomy versus anticoagulation and ~50% stenosis ofthe Left carotid artery by NASCET criteria with a corresponding CT of the brain without contrast revealing ~1.9 cm x ~1.1 cm x ~1.3 cm hypodense area seen within the deep white matter along the Right lateralconvexity which was new since prior examination with differential possibilities including: Acute/subacute CVA versus intracranial mass with MRI of the brain recommended for further evaluation at this time. He was also noted to have Uncontrolled Hypertension of 186/124 mmHg noted shortly after admission. The ERphysician then spoke with [facility], Dr. Barragan, who reviewed the case and recommended giving patient aspirin and Plavix in the place in the ICU overnight for close monitoring with his note going on to state that, if patient decompensates to re-page them and they will reevaluate at that point but she does not feel like this is a chronic large vessel occlusion - even though the radiologist notes this is a new finding with recommendation for neuro IR for thrombectomy, andthis patient has no previous history of CVA or similar previous episodes. Patient already took Plavix this morning and therefore an additional dose was not given in the ER. He was also started on antibiotics forsuspected Acute Bacterial Bronchitis with mild AE COPD. He was then reluctantlyadmitted to the ICU for ongoing care for a stay that is expected to extend beyond 2 midnights. [facility] Medical History History of DVT (deep vein thrombosis) Respiratory insufficiency Elevated troponin Acute bronchitis COPD exacerbation Congestive heart failure Acute sinusitis, unspecified Left shoulder pain Insulin dependent diabetes mellitus Coronary artery disease Essential hypertension Cluster headache Migraine Headache Diabetes Obesity Community acquired pneumonia Smoker Asthma Myocardial infarct Ischemic cardiomyopathy Obesity (BMI 30.0-34.9) Chronic obstructive pulmonary disease (COPD) Nicotine dependence COPD (chronic obstructive pulmonary disease) Hyperlipidemia History of non-ST elevation myocardial infarction (NSTEMI) (11/22/20) Atherosclerosis of [place] coronary artery of [place] heart without angina pectoris Non-ST elevation NE (NSTEMI) Home Medications ?Medication ?Instructions ?Recorded ?Last Taken ?Type aspirin 81 mg chewable tablet 81 mg PO DAILY heart hea lth 04/27/22 02/10/25 History loratadine 10 mg tablet 10 mg PO DAILY PRN allergies 06/26/22 Unknown History amlodipine 10 mg tablet 10 mg PO DAILY blood pressur e #90 06/25/23 02/10/25 Rx tabs lisinopril 20 mg tablet 20 mg PO BID blood pressure #180 11/26/23 Unknown Rx tabs atorvastatin 80 mg tablet 80 mg PO QHS cholesterol #90 tabs 12/28/23 02/09/25 Rx insulin degludec 200 unit/mL (3 50 unit (0.25 mL) subc ut QHS blood 12/28/23 02/09/25 Rx mL) subcutaneous pen (Tresiba sugar 3 months #22.5 mL FlexTouch U-200 insulin) ranolazine 1,000 mg 1,000 mg PO BID heart #60 ta bs 01/03/24 02/10/25 Rx tablet,extended release,12 hr clopidogrel 75 mg tablet (Plavix) 75 mg PO DAILY anti platelet #90 01/15/24 02/10/25 Rx tabs isosorbide mononitrate 60 mg 60 mg PO BID heart #180 T ABLETS 01/15/24 02/10/25 Rx tablet,extended release 24 hr nitroglycerin 0.4 mg sublingual 0.4 mg sublingual Q5-1 5M chest 07/22/24 02/08/25 Rx tablet pain #25 tabs albuterol sulfate 90 mcg/actuation 2 puff inhalation 4 X/DAY PRN 09/01/24 Unknown Rx aerosol inhaler Shortness Of Breath #8.5 gra ms potassium chloride 20 mEq 20 meq PO BIDCM #60 tabs Unknown Rx tablet,extended release(part/cryst) carvedilol 25 mg tablet 25 mg PO BIDCM heart health #180 10/27/24 02/10/25 Rx tabs clonidine HCl 0.1 mg tablet 0.1 mg PO BID blood pressu re #180 12/15/24 02/10/25 Rx tabs furosemide 20 mg tablet (Lasix) 60 mg (3 x 20 mg) PO D AILY #270 01/15/25 02/10/25 Rx tabs guaifenesin 1,200 mg tablet, 600 mg PO BID 02/10/25 History extended release 12 hr (Mucus Relief ER) insulin lispro 100 unit/mL 20 unit subcut TIDAC PRN DI ABETES 02/10/25 02/10/25 History subcutaneous pen (Humalog KwikPen (U-100) Insulin) Allergy/AdvReac Type Severity Reaction Status Date / Time amoxicillin trihydrate (From Allergy Rash Verified 02/10/25 17:57 Augmentin) potassium clavulanate (From Allergy Rash Verified 02/10/25 17:57 Augmentin) ticagrelor (From Brilinta) Allergy Shortness Verified 02/10/25 17:57 of breath codeine AdvReac Nausea Verified 02/10/25 17:57 Family History Sister Myocardial infarction, Onset Age: 41 Diabetes Mother COPD (chronic obstructive pulmonary disease) Asthma Rheumatoid arthritis CVA (cerebral vascular accident) Hypertension Grandmother Diabetes Surgical History History of coronary artery stent placement (12/25/23) History of hernia repair (2008) History of umbilical hernia repair (1971) History of neck surgery History of appendectomy Social History household members: spouse housing: house Smoking Status: Current every day smoker tobacco type: cigarettes Tobacco: How many years used: 20 Electronic Cigarette Use: not used second hand exposure: Yes alcohol intake: current alcohol intake frequency: 0-2 drinks per day Alcohol type: beer substance use type: does not use caffeine: Yes Type: carbonated beverages Number of servings: 2 and tea Number of servings: 6 what type of physical activity do you participate in: none ROS ROS Narrative Review of Systems: Constitutional: Patient denies fever or chills. Eyes: Patient denies changes vision or discharge from eyes. ENT: Patient denies runny nose, sore throat or ear pain. Resp: Patient admits to shortness of breath and cough productive of yellowish sputum with wheezing as per HPI. CV: Patient admits to intermittent heaviness in his chest but he denies palpitations, heart racing or lower extremity edema. GI: Patient denies abdominal pain, nausea, vomiting, diarrhea or constipation. : Patient denies dysuria or hematuria. MSK: Patient denies arthralgias or myalgias. Skin: Patient denies rash, abscess, wounds or jaundice. Psych: Patient denies symptoms of uncontrolled depression or anxiety. Neuro: Patient admits to headache, dysarthric speech, lightheadedness; with patient feeling like heis leaning to the Left but compensating but he denies paresthesias. Allergies: Patient denies lip swelling, tongue swelling or urticaria. Hematology: Patient denies easy bleeding or easy bruisability. Endocrinology: Patient admits to polyuria and polydipsia but he denies polyphagia. 14 point ROS otherwise negative except for positives noted above in HPI. Vital Signs Vital Signs Vital Signs: 02/10/25 17:56 02/10/25 18:08 02/10/25 18:12 Temperature 98.7 F Temperature Source Oral Pulse Rate 97 Respiratory Rate 18 Respiratory Effort Short of Breath Respiratory Pattern Blood Pressure 167/109 H Blood Pressure Mean 128 Blood Pressure Source Blood Pressure Position Blood Pressure Location Pulse Ox 95 Oxygen Delivery Method Room Air Room Air 02/10/25 18:46 02/10/25 18:53 02/10/25 20:00 Temperature Temperature Source Pulse Rate 88 88 83 Respiratory Rate 20 H Respiratory Effort Respiratory Pattern Normal Blood Pressure 173/97 H 170/116 H Blood Pressure Mean 122 134 Blood Pressure Source Blood Pressure Position Blood Pressure Location Pulse Ox 98 94 Oxygen Delivery Method Room Air Room Air 02/10/25 21:00 02/10/25 21:10 02/10/25 21:23 Temperature 98.7 F Temperature Source Oral Pulse Rate 86 89 85 Respiratory Rate 24 H 27 H Respiratory Effort Respiratory Pattern Blood Pressure 174/116 H 184/119 H Blood Pressure Mean 135 140 Blood Pressure Source Monitor Blood Pressure Position Semi-Fowlers Semi-Fowlers Blood Pressure Location Left Arm Left Arm Pulse Ox 97 95 93 Oxygen Delivery Method Room Air Room Air Room Air 02/10/25 21:40 02/10/25 21:55 02/10/25 22:00 Temperature Temperature Source Pulse Rate 87 89 Respiratory Rate 21 H 22 H Respiratory Effort Respiratory Pattern Blood Pressure 177/131 H 191/135 H Blood Pressure Mean 146 153 Blood Pressure Source Monitor Monitor Blood Pressure Position Semi-Fowlers Semi-Fowlers Blood Pressure Location Left Arm Right Forearm Pulse Ox 95 93 95 Oxygen Delivery Method Room Air Room Air Room Air 02/10/25 22:10 02/10/25 22:15 02/10/25 22:30 Temperature Temperature Source Pulse Rate 86 Respiratory Rate 22 H Respiratory Effort Respiratory Pattern Blood Pressure 183/132 H 188/133 H 188/128 H Blood Pressure Mean 149 151 148 Blood Pressure Source Blood Pressure Position Blood Pressure Location Pulse Ox 93 Oxygen Delivery Method 02/10/25 22:34 02/10/25 23:00 02/10/25 23:00 Temperature Temperature Source Pulse Rate 93 84 Respiratory Rate 24 H 21 H Respiratory Effort Respiratory Pattern Tachypnea Blood Pressure 186/124 H Blood Pressure Mean 144 Blood Pressure Source Blood Pressure Position Blood Pressure Location Pulse Ox 95 96 Oxygen Delivery Method Room Air Room Air Weight Weight: 238 lb 9.6 oz Body Mass Index (BMI) 36.3 Physical Exam Const alert, oriented x3 and no apparent distress Constitutional Narrative: Obese with patient appearing much older than his stated age. General Appearance: cooperative HEENT normocephalic, head/scalp atraumatic, hearing grossly normal bilaterally and moist oral mucous membranes Eyes PERRL and EOMs intact bilaterally Neck no lymphadenopathy and supple Resp Resp Narrative: Diminished breath sounds throughout. Cardio regular rate and regular rhythm GI normal to inspection, nondistended, normoactive bowel sounds, soft to palpation,non-tender and non-distended GI Narrative: Obese. Extremity normal to inspection, full ROM and no clubbing, cyanosis or edema Skin Skin Narrative: Patient has no evidence of rash, abscess, wounds or jaundice. Neuro oriented x3, CN's II-XII intact bilaterally and moves all extremities Neuro Narrative: Patient has mildly dysarthric speech with some minor difficulty with word finding. Sensorium / Orientation: awake, alert, oriented to person, oriented to place andoriented to time Speech: speech normal Motor Exam: strength 5/5 throughout Psych affect normal Results Medical Records Data Attestation: I reviewed the patient's medical records Lab / Micro Data Attestation: I reviewed the patient's lab results. 02/10/25 18:11 02/10/25 18:11 Labs: Laboratory Results - last 24 hr 02/10/25 18:11: WBC 9.4, RBC 4.92, Hgb 13.5, Hct 41.1, MCV 83.5, MCH 27.4, MCHC 32.8, RDW Std Deviation 42.5, RDW Coeff of Narcisa 13.9, Plt Count 317, MPV 10.6, Immature Gran % (Auto) 0.300, Neut % (Auto) 61.8, Lymph % (Auto) 25.5, [place] % (Auto) 9.2, Eos % (Auto) 2.4, Baso % (Auto) 0.8, Absolute Neuts(auto) 5.8, Absolute Lymphs (auto) 2.41, Nucleated RBC % 0, Sodium 137, Potassium 4.3, Chloride 102, Carbon Dioxide 23.1, Anion Gap 12, BUN 24 H, Creatinine 1.09, Estim Creat Clear Calc 93.49, Est GFR (MDRD) Non-Af 81, BUN/Creatinine Ratio 22.0 H, Glucose 255 H, Calcium 9.1, Troponin T High Sens 25H, NT pro BNP II 709, TSH 3.160, Free T4 1.20 02/10/25 18:16: POC Glucose 234 H 02/10/25 18:48: Lactic Acid 1.9 02/10/25 20:11: Troponin T Hi Sens 2 Hr 24 H ABG Data ABG results: ABG 02/10/25 19:09 Specimen Type TAMIKA Sample Site Not entered VBG pH 7.38 VBG pO2 52 H VBG HCO3 28 H VBG Total CO2 30 VBG O2 Sat (Calc) 85 H VBG Base Excess 3 POC Mix VBG pCO2 Pt Tmp 47.6 O2 Delivery Device Room Air Imaging Radiology Impression Chest X-Ray 02/10/25 18:11 IMPRESSION: Diffuse bilateral pulmonary infiltrates. Differential includes diffuse infection versus inflammatory process within the lungs. Follow-up until complete resolution is recommended. These findings are new since prior examination. Reading Location: [facility] Brain CT 02/10/25 18:31 IMPRESSION: 1.9 by 1.1 x 1.3 cm hypodense area seen within the deep white matter along the right lateral convexity. This is new since prior examination. Differential possibility includes, but not limited to acute/subacute infarct versus intracranial mass. Recommend MRI brain for further evaluation at this time. Red Alert: 1.9 by 1.1 x 1.3 cm hypodense area seen within the deep white matter along the right lateral convexity. This is new since prior examination. Differential possibility includes, but not limited to acute/subacute infarct versus intracranial mass. Recommend MRI brain for further evaluation at this time. The critical information above was relayed directly by me by telephone to Jasbir Curry on 02/10/2025 at 8:00 pm with readback verification. Reading Location: [facility] Head/Neck CTA 02/10/25 18:31 IMPRESSION: 1. 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 Small caliber distal right ARELY. Consider neuro IR consultation and/or neurology consult for discussion of endovascular thrombectomy versus anticoagulation. 2. Approximately 50% stenosis of the left carotid artery by NASCET criteria. Dr. Thompson discussed these findings via telephone with Dr. Curry at 8:50 pm on 02/10/25. Reading Location: [facility] Assessment & Plan Assessment/Plan (1) Abnormal computed tomography angiography of head: (2) Acute CVA (cerebrovascular accident): (3) Uncontrolled hypertension: (4) COPD exacerbation: (5) Acute bacterial bronchitis: (6) Obesity (BMI 30-39.9): PLAN: Plan 1. CTA of the head and neck with IV contrast revealing Large Vessel Occlusion of the A1 segment of the Right anterior cerebral artery with retrograde filling via the anterior communicating artery with small caliber distal Right ARELY with radiologist recommending neuro IR consultation for discussion of endovascular thrombectomy versus anticoagulation and ~50% stenosis of the Left carotid arteryby NASCET criteria - Admit to ICU as per [facility] recommendations. Check MRI of the brain with IV contrast to confirm suspicion of acute large vessel occlusion. Patient was already on baby aspirin, clopidogrel and hide-dose atorvastatin at time of admission which would indicate that he is failing maximal medical therapy and would likely benefit from transfer to tertiary care center for definitive treatment of this issue given his [id number] slurred speech, brain fog and headache. If patient worsens [facility] will be recontacted to reconsider transfer as he will likely not able to be discharged home without formal neurologic evaluation and definitive treatment. 2. CT of the brain without contrast revealing ~1.9 cm x ~1.1 cm x ~1.3 cm hypodense area seen within the deep white matter along the Right lateral convexity which was new since prior examination withdifferential possibilities including: Acute/subacute CVA versus intracranial mass with MRI of the brain recommended for further evaluation at this time complicating #1 in the setting of a known history of migraine & cluster headaches - MRI of the brain with IV contrast pending in the a.m. to confirm suspicion of acute CVA. Check carotid Doppler to evaluate for stenosis that may not be apparent on CTA. Check echocardiogram to evaluate LVEF. Check Lipid Profile, B12, Folate, ASHLEY and UDS to expand his neurologic evaluation. 3. Uncontrolled Hypertension of 186/124 mmHg noted shortly after admission attributable to #1 &#2 - Allow for permissive hypertension with suspected AcuteCVA to prevent worsening of his symptoms. Check TSH. 4. Mild AE COPD with Acute Bacterial Bronchitis in the setting of a known history of tobacco abuse (quit 09/2024); with subsequent asthma/COPD adding to the medical complexity of #1 - #3 - Continue steroids with IV methylprednisolone. Start treatment with IV doxycycline plus probiotic. Give scheduled and as needed nebulizers. Continue guaifenesin scheduled 600 mg p.o. twice daily. 5. Obesity; with BMI of 36.3 this admission adding to the burden of disease outlined from #1 - #4 -Weight loss will be recommended. Check TSH. 6. History of admission here from October 12, 2024 to October 13, 2024 for treatment of AE COPD with Acute Bronchitis, mild AE CHF with elevated troponin and Respiratory Insufficiency - Noted. 7. Hyperlipidemia; on high-dose atorvastatin - Continue statin as outlined above and check Lipid Profile. 8. IDDM; of unknown control on degludec 50U sq HS and insulin lispro 20U sq TIDwith history of HONK- Keep NPO for now except ice chips, sips and medications with evolving CVA and suspected acute LVO. Check FSBS q. 6 hours plus lowest intensity SSI. Check HgbA1c to objectively assess quality of diabetic control. 9. CAD; s/p stent (2003) and NSTEMI (2016, 2018 & 2020) on BASA and Plavix - Continue home regimen. 10. Ischemic Cardiomyopathy; with chronic chest pain on ranolazine - Maintain ranolazine as previous. 11. ISMO and prn NTG - Continue prn NTG. 12. History of CHF; with peripheral edema - Stable. Echocardiogram pending for#1 & #2. 13. History of bilateral LE DVT's; on apixaban - Noted. 14. History of sepsis - Noted with no signs of recurrence at this time. 15. History of appendectomy - Noted. 16. History of hernia; s/p repair (2008) - Noted. 17. Remote history of umbilical hernia repair (1971) - Noted for the sake of completeness. 18. History of sinusitis - Noted. 19. History of vitamin D deficiency - Check vitamin D level this admission. 20. History of thrush - Noted. 21. Seasonal allergies - Stable. 22. Listed allergy to Augmentin (rash) - Noted. 23. Listed allergy to ticagrelor (SOB) - We will avoid this agent. 24. Listed allergy to codeine (nausea) - Noted. 25. OA; with chronic Left shoulder pain and history of neck surgery - Give acetaminophen prn. 26. DVT/GI prophylaxis - SCD's only to minimize potential conversion to hemorrhagic CVA for #1. Pantoprazole 40 mg PO daily. Total time: Approximately (but not less than) 75 minutes. Charges/Coding Visit Charges Inpatient E&M: 72378 Init Hosp L3 02/11/25 0642 Cosigner Signature (if applicable): CC: Dr. Mitchell Deras DO; Dr. Beka Bowie MD~ Signed [facility]03-26-2025 Evaluation note* Diagnosis Onset Date Resolution Status Admit Date Abnormal computed tomography angiography of head acute February 11, 2025 12:04am Acute bacterial bronchitis acute February 11, 2025 12:04am Acute CVA (cerebrovascular accident) acute February 11, 2025 12:04am CVA (cerebral vascular accident) acute February 11, 2025 12:04am Obesity (BMI 30-39.9) acute Jan 12:04am Pneumonia acute February 11 12:04am Uncontrolled hypertension acute February 11, 2025 12:04am COPD exacerbation chronic January 182024 12:04am [facility] Work Phone: [phone]) 346-289403-26-2025 Discharge summary Author Jasbir [facility] Note Date/Time February 10, 2025 11: 30pm [facility] Medical Records Department [address] [place] [address] Emergency Department Summary 02/10/25 MR#: [id number] Acct: [id number] Name: LATONYA ELDER Rep #:[id number] : 1970 54 From: Jasbir Curry DO PCP: Dr. Beka Bowie MD Status:R EG ER Location: ED HPI History of Present Illness Chief Complaint: Chest Pain Narrative Narrative: Patient is a 54-year-old male with past medical history of COPD, CHF, CAD, hypertension, diabetes who presented to the emergency department with a complaint of chest pain, shortness of breath, brain fog, slurred speech since Sunday. According to the patient and significant other and has been off and on for the last several days. They state that since things were not getting betterthey decided come here for further evaluation management. Patient denies any recent sick contacts. He states that he has been using his inhalers and other medications as prescribed [facility] Medical History History of DVT (deep vein thrombosis) Respiratory insufficiency Elevated troponin Acute bronchitis COPD exacerbation Congestive heart failure Acute sinusitis, unspecified Left shoulder pain Insulin dependent diabetes mellitus Coronary artery disease Essential hypertension Cluster headache Migraine Headache Diabetes Obesity Community acquired pneumonia Smoker Asthma Myocardial infarct Ischemic cardiomyopathy Obesity (BMI 30.0-34.9) Chronic obstructive pulmonary disease (COPD) Nicotine dependence COPD (chronic obstructive pulmonary disease) Hyperlipidemia History of non-ST elevation myocardial infarction (NSTEMI) (11/22/20) Atherosclerosis of [place] coronary artery of [place] heart without angina pectoris Non-ST elevation NE (NSTEMI) Home Medications ?Medication ?Instructions ?Recorded ?Last Taken ?Type aspirin 81 mg chewable tablet 81 mg PO DAILY heart hea lth 04/27/22 02/10/25 History loratadine 10 mg tablet 10 mg PO DAILY PRN allergies 06/26/22 Unknown History amlodipine 10 mg tablet 10 mg PO DAILY blood pressur e #90 06/25/23 02/10/25 Rx tabs lisinopril 20 mg tablet 20 mg PO BID blood pressure #180 11/26/23 Unknown Rx tabs atorvastatin 80 mg tablet 80 mg PO QHS cholesterol #90 tabs 12/28/23 02/09/25 Rx insulin degludec 200 unit/mL (3 50 unit (0.25 mL) subc ut QHS blood 12/28/23 02/09/25 Rx mL) subcutaneous pen (Tresiba sugar 3 months #22.5 mL FlexTouch U-200 insulin) ranolazine 1,000 mg 1,000 mg PO BID heart #60 ta bs 01/03/24 02/10/25 Rx tablet,extended release,12 hr clopidogrel 75 mg tablet (Plavix) 75 mg PO DAILY anti platelet #90 01/15/24 02/10/25 Rx tabs isosorbide mononitrate 60 mg 60 mg PO BID heart #180 T ABLETS 01/15/24 02/10/25 Rx tablet,extended release 24 hr nitroglycerin 0.4 mg sublingual 0.4 mg sublingual Q5-1 5M chest 07/22/24 02/08/25 Rx tablet pain #25 tabs albuterol sulfate 90 mcg/actuation 2 puff inhalation 4 X/DAY PRN 09/01/24 Unknown Rx aerosol inhaler Shortness Of Breath #8.5 gra ms potassium chloride 20 mEq 20 meq PO BIDCM #60 tabs Unknown Rx tablet,extended release(part/cryst) carvedilol 25 mg tablet 25 mg PO BIDCM heart health #180 10/27/24 02/10/25 Rx tabs clonidine HCl 0.1 mg tablet 0.1 mg PO BID blood pressu re #180 12/15/24 02/10/25 Rx tabs furosemide 20 mg tablet (Lasix) 60 mg (3 x 20 mg) PO D AILY #270 01/15/25 02/10/25 Rx tabs guaifenesin 1,200 mg tablet, 600 mg PO BID 02/10/25 History extended release 12 hr (Mucus Relief ER) insulin lispro 100 unit/mL 20 unit subcut TIDAC PRN DI ABETES 02/10/25 02/10/25 History subcutaneous pen (Humalog KwikPen (U-100) Insulin) Allergy/AdvReac Type Severity Reaction Status Date / Time amoxicillin trihydrate (From Allergy Rash Verified 02/10/25 17:57 Augmentin) potassium clavulanate (From Allergy Rash Verified 02/10/25 17:57 Augmentin) ticagrelor (From Brilinta) Allergy Shortness Verified 02/10/25 17:57 of breath codeine AdvReac Nausea Verified 02/10/25 17:57 Family History Sister Myocardial infarction, Onset Age: 41 Diabetes Mother COPD (chronic obstructive pulmonary disease) Asthma Rheumatoid arthritis CVA (cerebral vascular accident) Hypertension Grandmother Diabetes Surgical History History of coronary artery stent placement (12/25/23) History of hernia repair (2008) History of umbilical hernia repair (1971) History of neck surgery History of appendectomy Social History household members: spouse housing: house Smoking Status: Current every day smoker tobacco type: cigarettes Tobacco: How many years used: 20 Electronic Cigarette Use: not used second hand exposure: Yes alcohol intake: current alcohol intake frequency: 0-2 drinks per day Alcohol type: beer substance use type: does not use caffeine: Yes Type: carbonated beverages Number of servings: 2 and tea Number of servings: 6 what type of physical activity do you participate in: none ROS ROS ED ROS Narrative Constitutional: Complains of headache, lightheadedness denies any dizziness Eyes: Denies change in vision double vision blurry vision Cardiovascular: Complains of chest heaviness denies any palpitations Respiratory: Complaint shortness of breath as noted above denies coughing complains of wheezing Abdomen: Denies abdominal pain nausea vomit diarrhea : Denies urinary symptoms Neurological: Denies numbness, tingling, weakness complaint slurred speech as noted above Musculoskeletal: Denies back pain Skin: Denies rashes or lesions EXAM Physical Exam Narrative Exam Narrative: General: Patient is lying in bed rest comfortably did not appear to be in acute distress Head: Atraumatic, normocephalic Eyes: PERRL bilateral, EOMI bilateral, no conjunctival injection noted Neck: Soft, supple, trachea Cardiovascular:Regular rate and rhythm no murmurs gallops rubs noted Respiratory: clear to auscultation bilaterally Abdomen: Soft, nondistended, nontender to palpation Extremities: +5/5 strength noted in the bilateral upper and lower extremities, radial pulses +2/4 in the bilateral extremities, patient does have edema noted in his bilateral lower extremities Neurological: Patient following commands that he was at [facility] year [id number]. Patient completed finger-nose testing bilaterally for any difficulty, NIHof 0 GCS 15 Skin: Warm, dry, intact no rashes or lesions noted Const Vital Signs: 02/10/25 17:56 02/10/25 18:08 02/10/25 18:12 Temperature 98.7 F Temperature Source Oral Pulse Rate 97 Respiratory Rate 18 Respiratory Effort Short of Breath Respiratory Pattern Blood Pressure 167/109 H Blood Pressure Mean 128 Blood Pressure Source Blood Pressure Position Blood Pressure Location Pulse Ox 95 Oxygen Delivery Method Room Air Room Air 02/10/25 18:46 02/10/25 18:53 02/10/25 20:00 Temperature Temperature Source Pulse Rate 88 88 83 Respiratory Rate 20 H Respiratory Effort Respiratory Pattern Normal Blood Pressure 173/97 H 170/116 H Blood Pressure Mean 122 134 Blood Pressure Source Blood Pressure Position Blood Pressure Location Pulse Ox 98 94 Oxygen Delivery Method Room Air Room Air 02/10/25 21:00 02/10/25 21:10 02/10/25 21:23 Temperature 98.7 F Temperature Source Oral Pulse Rate 86 89 85 Respiratory Rate 24 H 27 H Respiratory Effort Respiratory Pattern Blood Pressure 174/116 H 184/119 H Blood Pressure Mean 135 140 Blood Pressure Source Monitor Blood Pressure Position Semi-Fowlers Semi-Fowlers Blood Pressure Location Left Arm Left Arm Pulse Ox 97 95 93 Oxygen Delivery Method Room Air Room Air Room Air 02/10/25 21:40 02/10/25 21:55 02/10/25 22:00 Temperature Temperature Source Pulse Rate 87 89 Respiratory Rate 21 H 22 H Respiratory Effort Respiratory Pattern Blood Pressure 177/131 H 191/135 H Blood Pressure Mean 146 153 Blood Pressure Source Monitor Monitor Blood Pressure Position Semi-Fowlers Semi-Fowlers Blood Pressure Location Left Arm Right Forearm Pulse Ox 95 93 95 Oxygen Delivery Method Room Air Room Air Room Air 02/10/25 22:10 02/10/25 22:15 02/10/25 22:30 Temperature Temperature Source Pulse Rate 86 Respiratory Rate 22 H Respiratory Effort Respiratory Pattern Blood Pressure 183/132 H 188/133 H 188/128 H Blood Pressure Mean 149 151 148 Blood Pressure Source Blood Pressure Position Blood Pressure Location Pulse Ox 93 Oxygen Delivery Method 02/10/25 22:34 02/10/25 23:00 02/10/25 23:00 Temperature Temperature Source Pulse Rate 93 84 Respiratory Rate 24 H 21 H Respiratory Effort Respiratory Pattern Tachypnea Blood Pressure 186/124 H Blood Pressure Mean 144 Blood Pressure Source Blood Pressure Position Blood Pressure Location Pulse Ox 95 96 Oxygen Delivery Method Room Air Room Air MDM MDM MDM Narrative Medical decision making narrative: Patient is a 54-year-old male who presented to the emerged part with chief complaint of altered mental status, slurred speech off and on since Sunday as noted above. On the differential diagnose includes but not limited to intracranial hemorrhage, acute on chronic subdural, hypercapnia, TIA, subacute stroke. Once workup is obtained reviewed he will be reevaluated. Patient is not a tenecteplase candidate as symptoms have been going on since Sunday. Patient's CBC was reviewed which showed a white blood count 9.4, hemoglobin 13.5, platelet count was 317. Patient's venous gas showed pH 7.38, pCO2 of 47.6. Patient sodium normal 137, potassium normal 4.3, creatinine was normal at1.09. Patient lactic acid normal at 1.9, troponin was 25 with a delta troponin of 24 patient's EKG was reviewed by myself which showed sinus rhythm with a rateof 89 bpm. Patient's proBNP of 709. Patient TSH normal at 3.16 with a free T41.20. Patient's CT head and brain without contrast showed a 1.9 x 1.1 x 1.3 cm hypodense area seen within the deep white matter along the right lateral convexity. New since prior examination. Differential includes but not limited to acute/subacute infarct versus intracranial mass recommending MRI for further evaluation management. Patient chest x-ray reviewed by myself and by radiology foot showed diffuse bilateral pulmonary infiltrates differential includes diffuse infectious versus inflammatory processes within the lungs. Patient CTA head and neck was reviewed which showed large vessel occlusion of the A1 segmentof the right anterior cerebral artery with retrograde filling via the anterior communicating artery. Small caliber distal right ARELY. Consider neuro IR consultation and/or neurology consult for discussion of endovascular thrombectomy versus anticoagulation. Approximately 50% stenosis of the left carotid artery by NASCET criteria. Discussed the case with neurology/neurosurgery at [facility] Dr. Barragan who reviewed everything and states give the patient aspirin and Plavix and placethe patient in the intensive care unit for close monitoring. She states that ifthe patient decompensates to repaged them and they will reevaluate at that pointtime but she does feel that this is likely a chronic large vessel occlusion. Patient already took Plavix this morning therefore we will not give the patient Plavix. Patient will be given antibiotics as he states that he is coughing up more phlegm than normal. Will discuss case with hospitalist for admission. Did discuss case with hospitalist Dr. Lau who accept the patient for admission. Patient notified is agreeable this plan all question concerns answered. Lab Data Labs: Laboratory Results - last 24 hr 02/10/25 02/10/25 02/10/25 18:11 18:16 18:48 WBC 9.4 RBC 4.92 Hgb 13.5 Hct 41.1 MCV 83.5 MCH 27.4 MCHC 32.8 RDW Std Deviation 42.5 RDW Coeff of Narcisa 13.9 Plt Count 317 MPV 10.6 Immature Gran % (Auto) 0.300 Neut % (Auto) 61.8 Lymph % (Auto) 25.5 [place] % (Auto) 9.2 Eos % (Auto) 2.4 Baso % (Auto) 0.8 Absolute Neuts (auto) 5.8 Absolute Lymphs (auto) 2.41 Nucleated RBC % 0 Sodium 137 Potassium 4.3 Chloride 102 Carbon Dioxide 23.1 Anion Gap 12 BUN 24 H Creatinine 1.09 Estim Creat Clear Calc 93.49 Est GFR (MDRD) Non-Af 81 BUN/Creatinine Ratio 22.0 H Glucose 255 H Lactic Acid 1.9 Calcium 9.1 Troponin T High Sens 25 H Troponin T Hi Sens 2 Hr NT pro BNP II 709 TSH 3.160 Free T4 1.20 POC Glucose 234 H 02/10/25 20:11 WBC RBC Hgb Hct MCV MCH MCHC RDW Std Deviation RDW Coeff of Narcisa Plt Count MPV Immature Gran % (Auto) Neut % (Auto) Lymph % (Auto) [place] % (Auto) Eos % (Auto) Baso % (Auto) Absolute Neuts (auto) Absolute Lymphs (auto) Nucleated RBC % Sodium Potassium Chloride Carbon Dioxide Anion Gap BUN Creatinine Estim Creat Clear Calc Est GFR (MDRD) Non-Af BUN/Creatinine Ratio Glucose Lactic Acid Calcium Troponin T High Sens Troponin T Hi Sens 2 Hr 24 H NT pro BNP II TSH Free T4 POC Glucose ABG Data ABG results: ABG 02/10/25 19:09 Specimen Type TAMIKA Sample Site Not entered VBG pH 7.38 VBG pO2 52 H VBG HCO3 28 H VBG Total CO2 30 VBG O2 Sat (Calc) 85 H VBG Base Excess 3 POC Mix VBG pCO2 Pt Tmp 47.6 O2 Delivery Device Room Air Radiography Diagnostic Testing: Clinical Impression(s) from Imaging Studies Chest X-Ray 02/10/25 18:11 IMPRESSION: Diffuse bilateral pulmonary infiltrates. Differential includes diffuse infection versus inflammatory process within the lungs. Follow-up until complete resolution is recommended. These findings are new since prior examination. Reading Location: [facility] Brain CT 02/10/25 18:31 IMPRESSION: 1.9 by 1.1 x 1.3 cm hypodense area seen within the deep white matter along the right lateral convexity. This is new since prior examination. Differential possibility includes, but not limited to acute/subacute infarct versus intracranial mass. Recommend MRI brain for further evaluation at this time. Red Alert: 1.9 by 1.1 x 1.3 cm hypodense area seen within the deep white matter along the right lateral convexity. This is new since prior examination. Differential possibility includes, but not limited to acute/subacute infarct versus intracranial mass. Recommend MRI brain for further evaluation at this time. The critical information above was relayed directly by me by telephone to Jasbir Curry on 02/10/2025 at 8:00 pm with readback verification. Reading Location: [facility] Head/Neck CTA 02/10/25 18:31 IMPRESSION: 1. 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 Small caliber distal right ARELY. Consider neuro IR consultation and/or neurology consult for discussion of endovascular thrombectomy versus anticoagulation. 2. Approximately 50% stenosis of the left carotid artery by NASCET criteria. Dr. Thompson discussed these findings via telephone with Dr. Curry at 8:50 pm on 02/10/25. Reading Location: [facility] Discharge Plan Triage Chief Complaint: Chest Pain Other Complaint: Neuro S/Sx ED Provider: Jasbir Curry Dx/Rx/DC Orders Clinical Impression: Acute CVA (cerebrovascular accident), Abnormal computed tomography angiography of head, COPD exacerbation Prescriptions: No Action atorvastatin 80 mg tablet 80 mg PO QHS Qty: 90 1RF insulin degludec [Tresiba FlexTouch U-200] 200 unit/mL (3 mL) insulin pen 50 unit SUBCUT QHS 90 Days Qty: 22.5 1RF clopidogrel [Plavix] 75 mg tablet 75 mg PO DAILY Qty: 90 3RF isosorbide mononitrate 60 mg tablet extended release 24 hr 60 mg PO BID Qty: 180 3RF aspirin 81 MG tablet,chewable 81 mg PO DAILY loratadine 10 mg tablet 10 mg PO DAILY PRN (Reason: allergies) potassium chloride 20 mEq Tablet,Er Particles/Crystals 20 meq PO BIDCM Qty: 60 0RF insulin lispro [Humalog KwikPen Insulin] 100 unit/mL Insulin Pen 20 unit subcut TIDAC PRN (Reason: DIABETES) guaifenesin [Mucus Relief ER] 1,200 mg Tablet Extended Release 12hr 600 mg PO BID amlodipine 10 mg tablet 10 mg PO DAILY Qty: 90 3RF lisinopril 20 mg tablet 20 mg PO BID Qty: 180 3RF ranolazine 1,000 mg tablet extended release 12 hr 1,000 mg PO BID Qty: 60 11RF nitroglycerin 0.4 mg tablet, sublingual 0.4 mg sublingual Q5-15M Qty: 25 3RF albuterol sulfate 90 mcg/actuation HFA aerosol inhaler 2 puff INHALATION 4X/DAY PRN (Reason: Shortness Of Breath) Qty: 8.5 0RF carvedilol 25 mg tablet 25 mg PO BIDCM Qty: 180 3RF clonidine HCl 0.1 mg tablet 0.1 mg PO BID Qty: 180 3RF furosemide [Lasix] 20 mg tablet 60 mg PO DAILY Qty: 270 3RF Primary Care Provider: Beka Bowie Referrals: Beka Bowie MD [Primary Care Provider] - Print Language: Mongolian Disposition Disposition: Acute Care Hospital [facility] What to do if you have Problems For any increased pain, shortness of breath, bleeding, nausea or vomiting, chestpain, or any unexpected problems, contact your Primary Care Provider. Call [facility] ([phone]) or report to the closest Emergency Room. Call 911 if necessary. 02/10/250 <Electronically signed by Jasbir Curry DO> Cosigner Signature (if applicable): CC: Dr. Beka Bowie MD ~ Signed [facility] Work Phone: [phone] Discharge summary [facility] Medical Records Department [address] [place] [address] Emergency Department Summary 02/10/25 MR#: [id number] Acct: [id number] Name: LATONYA ELDER Rep #:[id number] : 1970 54 From: Jasbir Curry DO PCP: Dr. Beka Bowie MD Status:R EG ER Location: ED HPI History of Present Illness Chief Complaint: Chest Pain Narrative Narrative: Patient is a 54-year-old male with past medical history of COPD, CHF, CAD, hypertension, diabetes who presented to the emergency department with a complaint of chest pain, shortness of breath, brainfog, slurred speech since Sunday. According to the patient and significant other and has been off and on for the last several days. They state that since things were not getting betterthey decided come here for further evaluation management. Patient denies any recent sick contacts. He states that he has been using his inhalers and other medications as prescribed [facility] Medical History History of DVT (deep vein thrombosis) Respiratory insufficiency Elevated troponin Acute bronchitis COPD exacerbation Congestive heart failure Acute sinusitis, unspecified Left shoulder pain Insulin dependent diabetes mellitus Coronary artery disease Essential hypertension Cluster headache Migraine Headache Diabetes Obesity Community acquired pneumonia Smoker Asthma Myocardial infarct Ischemic cardiomyopathy Obesity (BMI 30.0-34.9) Chronic obstructive pulmonary disease (COPD) Nicotine dependence COPD (chronic obstructive pulmonary disease) Hyperlipidemia History of non-ST elevation myocardial infarction (NSTEMI) (11/22/20) Atherosclerosis of [place] coronary artery of [place] heart without angina pectoris Non-ST elevation NE (NSTEMI) Home Medications ?Medication ?Instructions ?Recorded ?Last Taken ?Type aspirin 81 mg chewable tablet 81 mg PO DAILY heart hea lth 04/27/22 02/10/25 History loratadine 10 mg tablet 10 mg PO DAILY PRN allergies 06/26/22 Unknown History amlodipine 10 mg tablet 10 mg PO DAILY blood pressur e #90 06/25/23 02/10/25 Rx tabs lisinopril 20 mg tablet 20 mg PO BID blood pressure #180 11/26/23 Unknown Rx tabs atorvastatin 80 mg tablet 80 mg PO QHS cholesterol #90 tabs 12/28/23 02/09/25 Rx insulin degludec 200 unit/mL (3 50 unit (0.25 mL) subc ut QHS blood 12/28/23 02/09/25 Rx mL) subcutaneous pen (Tresiba sugar 3 months #22.5 mL FlexTouch U-200 insulin) ranolazine 1,000 mg 1,000 mg PO BID heart #60 ta bs 01/03/24 02/10/25 Rx tablet,extended release,12 hr clopidogrel 75 mg tablet (Plavix) 75 mg PO DAILY anti platelet #90 01/15/24 02/10/25 Rx tabs isosorbide mononitrate 60 mg 60 mg PO BID heart #180 T ABLETS 01/15/24 02/10/25 Rx tablet,extended release 24 hr nitroglycerin 0.4 mg sublingual 0.4 mg sublingual Q5-1 5M chest 07/22/24 02/08/25 Rx tablet pain #25 tabs albuterol sulfate 90 mcg/actuation 2 puff inhalation 4 X/DAY PRN 09/01/24 Unknown Rx aerosol inhaler Shortness Of Breath #8.5 gra ms potassium chloride 20 mEq 20 meq PO BIDCM #60 tabs Unknown Rx tablet,extended release(part/cryst) carvedilol 25 mg tablet 25 mg PO BIDCM heart health #180 10/27/24 02/10/25 Rx tabs clonidine HCl 0.1 mg tablet 0.1 mg PO BID blood pressu re #180 12/15/24 02/10/25 Rx tabs furosemide 20 mg tablet (Lasix) 60 mg (3 x 20 mg) PO D AILY #270 01/15/25 02/10/25 Rx tabs guaifenesin 1,200 mg tablet, 600 mg PO BID 02/10/25 History extended release 12 hr (Mucus Relief ER) insulin lispro 100 unit/mL 20 unit subcut TIDAC PRN DI ABETES 02/10/25 02/10/25 History subcutaneous pen (Humalog KwikPen (U-100) Insulin) Allergy/AdvReac Type Severity Reaction Status Date / Time amoxicillin trihydrate (From Allergy Rash Verified 02/10/25 17:57 Augmentin) potassium clavulanate (From Allergy Rash Verified 02/10/25 17:57 Augmentin) ticagrelor (From Brilinta) Allergy Shortness Verified 02/10/25 17:57 of breath codeine AdvReac Nausea Verified 02/10/25 17:57 Family History Sister Myocardial infarction, Onset Age: 41 Diabetes Mother COPD (chronic obstructive pulmonary disease) Asthma Rheumatoid arthritis CVA (cerebral vascular accident) Hypertension Grandmother Diabetes Surgical History History of coronary artery stent placement (12/25/23) History of hernia repair (2008) History of umbilical hernia repair (1971) History of neck surgery History of appendectomy Social History household members: spouse housing: house Smoking Status: Current every day smoker tobacco type: cigarettes Tobacco: How many years used: 20 Electronic Cigarette Use: not used second hand exposure: Yes alcohol intake: current alcohol intake frequency: 0-2 drinks per day Alcohol type: beer substance use type: does not use caffeine: Yes Type: carbonated beverages Number of servings: 2 and tea Number of servings: 6 what type of physical activity do you participate in: none ROS ROS ED ROS Narrative Constitutional: Complains of headache, lightheadedness denies any dizziness Eyes: Denies change in vision double vision blurry vision Cardiovascular: Complains of chest heaviness denies any palpitations Respiratory: Complaint shortness of breath as noted above denies coughing complains of wheezing Abdomen: Denies abdominal pain nausea vomit diarrhea : Denies urinary symptoms Neurological: Denies numbness, tingling, weakness complaint slurred speech as noted above Musculoskeletal: Denies back pain Skin: Denies rashes or lesions EXAM Physical Exam Narrative Exam Narrative: General: Patient is lying in bed rest comfortably did not appear to be in acute distress Head: Atraumatic, normocephalic Eyes: PERRL bilateral, EOMI bilateral, no conjunctival injection noted Neck: Soft, supple, trachea Cardiovascular:Regular rate and rhythm no murmurs gallops rubs noted Respiratory: clear to auscultation bilaterally Abdomen: Soft, nondistended, nontender to palpation Extremities: +5/5 strength noted in the bilateral upper and lower extremities, radial pulses +2/4 in the bilateral extremities, patient does have edema noted in his bilateral lower extremities Neurological: Patient following commands that he was at [facility] year bp2466. Patient completed finger-nose testing bilaterally for any difficulty, NIHof 0 GCS 15 Skin: Warm, dry, intact no rashes or lesions noted Const Vital Signs: 02/10/25 17:56 02/10/25 18:08 02/10/25 18:12 Temperature 98.7 F Temperature Source Oral Pulse Rate 97 Respiratory Rate 18 Respiratory Effort Short of Breath Respiratory Pattern Blood Pressure 167/109 H Blood Pressure Mean 128 Blood Pressure Source Blood Pressure Position Blood Pressure Location Pulse Ox 95 Oxygen Delivery Method Room Air Room Air 02/10/25 18:46 02/10/25 18:53 02/10/25 20:00 Temperature Temperature Source Pulse Rate 88 88 83 Respiratory Rate 20 H Respiratory Effort Respiratory Pattern Normal Blood Pressure 173/97 H 170/116 H Blood Pressure Mean 122 134 Blood Pressure Source Blood Pressure Position Blood Pressure Location Pulse Ox 98 94 Oxygen Delivery Method Room Air Room Air 02/10/25 21:00 02/10/25 21:10 02/10/25 21:23 Temperature 98.7 F Temperature Source Oral Pulse Rate 86 89 85 Respiratory Rate 24 H 27 H Respiratory Effort Respiratory Pattern Blood Pressure 174/116 H 184/119 H Blood Pressure Mean 135 140 Blood Pressure Source Monitor Blood Pressure Position Semi-Fowlers Semi-Fowlers Blood Pressure Location Left Arm Left Arm Pulse Ox 97 95 93 Oxygen Delivery Method Room Air Room Air Room Air 02/10/25 21:40 02/10/25 21:55 02/10/25 22:00 Temperature Temperature Source Pulse Rate 87 89 Respiratory Rate 21 H 22 H Respiratory Effort Respiratory Pattern Blood Pressure 177/131 H 191/135 H Blood Pressure Mean 146 153 Blood Pressure Source Monitor Monitor Blood Pressure Position Semi-Fowlers Semi-Fowlers Blood Pressure Location Left Arm Right Forearm Pulse Ox 95 93 95 Oxygen Delivery Method Room Air Room Air Room Air 02/10/25 22:10 02/10/25 22:15 02/10/25 22:30 Temperature Temperature Source Pulse Rate 86 Respiratory Rate 22 H Respiratory Effort Respiratory Pattern Blood Pressure 183/132 H 188/133 H 188/128 H Blood Pressure Mean 149 151 148 Blood Pressure Source Blood Pressure Position Blood Pressure Location Pulse Ox 93 Oxygen Delivery Method 02/10/25 22:34 02/10/25 23:00 02/10/25 23:00 Temperature Temperature Source Pulse Rate 93 84 Respiratory Rate 24 H 21 H Respiratory Effort Respiratory Pattern Tachypnea Blood Pressure 186/124 H Blood Pressure Mean 144 Blood Pressure Source Blood Pressure Position Blood Pressure Location Pulse Ox 95 96 Oxygen Delivery Method Room Air Room Air MDM MDM MDM Narrative Medical decision making narrative: Patient is a 54-year-old male who presented to the emerged part with chief complaint of altered mental status, slurred speech off and on since Sunday as noted above. On the differential diagnose includes but not limited to intracranial hemorrhage, acute on chronic subdural, hypercapnia, TIA, subacute stroke. Once workup is obtained reviewed he will be reevaluated. Patient is not a tenecteplase candidate as symptoms have been going on since Sunday. Patient's CBC was reviewed which showed a white blood count 9.4, hemoglobin 13.5, platelet count was 317. Patient's venous gas showed pH 7.38, pCO2 of 47.6. Patient sodium normal 137, potassium normal 4.3, creatinine was normal at1.09. Patient lactic acid normal at 1.9, troponin was 25 with a deltatroponin of 24 patient's EKG was reviewed by myself which showed sinus rhythm with a rateof 89 bpm.Patient's proBNP of 709. Patient TSH normal at 3.16 with a free T41.20. Patient's CT head and brainwithout contrast showed a 1.9 x 1.1 x 1.3 cm hypodense area seen within the deep white matter alongthe right lateral convexity. New since prior examination. Differential includes but not limited to acute/subacute infarct versus intracranial mass recommending MRI for further evaluation management. Patient chest x-ray reviewed by myself and by radiology foot showed diffuse bilateral pulmonary infiltrates differential includes diffuse infectious versus inflammatory processes within the lungs. Patient CTA head and neck was reviewed which showed large vessel occlusion of the A1 segmentof the right anterior cerebral artery with retrograde filling via the anterior communicating artery. Small caliber distal right ARELY. Consider neuro IR consultation and/or neurology consult for discussion of endovascular thrombectomy versus anticoagulation. Approximately 50% stenosis of the left carotid artery by NASCET criteria. Discussed the case with neurology/neurosurgery at [facility] Dr. Barragan who reviewed everything and states give the patient aspirin and Plavix and placethe patient in the intensive care unit for close monitoring. She states that ifthe patient decompensates to repaged them and they will reevaluate at that pointtime but she does feel that this is likely a chronic large vessel occlusion. Patient already took Plavix this morning therefore we will not give the patient Plavix. Patient will begiven antibiotics as he states that he is coughing up more phlegm than normal. Will discuss case with hospitalist for admission. Did discuss case with hospitalist Dr. Lau who accept the patient for admission. Patient notified is agreeable this plan all question concerns answered. Lab Data Labs: Laboratory Results - last 24 hr 02/10/25 02/10/25 02/10/25 18:11 18:16 18:48 WBC 9.4 RBC 4.92 Hgb 13.5 Hct 41.1 MCV 83.5 MCH 27.4 MCHC 32.8 RDW Std Deviation 42.5 RDW Coeff of Narcisa 13.9 Plt Count 317 MPV 10.6 Immature Gran % (Auto) 0.300 Neut % (Auto) 61.8 Lymph % (Auto) 25.5 [place] % (Auto) 9.2 Eos % (Auto) 2.4 Baso % (Auto) 0.8 Absolute Neuts (auto) 5.8 Absolute Lymphs (auto) 2.41 Nucleated RBC % 0 Sodium 137 Potassium 4.3 Chloride 102 Carbon Dioxide 23.1 Anion Gap 12 BUN 24 H Creatinine 1.09 Estim Creat Clear Calc 93.49 Est GFR (MDRD) Non-Af 81 BUN/Creatinine Ratio 22.0 H Glucose 255 H Lactic Acid 1.9 Calcium 9.1 Troponin T High Sens 25 H Troponin T Hi Sens 2 Hr NT pro BNP II 709 TSH 3.160 Free T4 1.20 POC Glucose 234 H 02/10/25 20:11 WBC RBC Hgb Hct MCV MCH MCHC RDW Std Deviation RDW Coeff of Narcisa Plt Count MPV Immature Gran % (Auto) Neut % (Auto) Lymph % (Auto) [place] % (Auto) Eos % (Auto) Baso % (Auto) Absolute Neuts (auto) Absolute Lymphs (auto) Nucleated RBC % Sodium Potassium Chloride Carbon Dioxide Anion Gap BUN Creatinine Estim Creat Clear Calc Est GFR (MDRD) Non-Af BUN/Creatinine Ratio Glucose Lactic Acid Calcium Troponin T High Sens Troponin T Hi Sens 2 Hr 24 H NT pro BNP II TSH Free T4 POC Glucose ABG Data ABG results: ABG 02/10/25 19:09 Specimen Type TAMIKA Sample Site Not entered VBG pH 7.38 VBG pO2 52 H VBG HCO3 28 H VBG Total CO2 30 VBG O2 Sat (Calc) 85 H VBG Base Excess 3 POC Mix VBG pCO2 Pt Tmp 47.6 O2 Delivery Device Room Air Radiography Diagnostic Testing: Clinical Impression(s) from Imaging Studies Chest X-Ray 02/10/25 18:11 IMPRESSION: Diffuse bilateral pulmonary infiltrates. Differential includes diffuse infection versus inflammatory process within the lungs. Follow-up until complete resolution is recommended. These findings are new since prior examination. Reading Location: [facility] Brain CT 02/10/25 18:31 IMPRESSION: 1.9 by 1.1 x 1.3 cm hypodense area seen within the deep white matter along the right lateral convexity. This is new since prior examination. Differential possibility includes, but not limited to acute/subacute infarct versus intracranial mass. Recommend MRI brain for further evaluation at this time. Red Alert: 1.9 by 1.1 x 1.3 cm hypodense area seen within the deep white matter along the right lateral convexity. This is new since prior examination. Differential possibility includes, but not limited to acute/subacute infarct versus intracranial mass. Recommend MRI brain for further evaluation at this time. The critical information above was relayed directly by me by telephone to Jasbir Curry on 02/10/2025 at 8:00 pm with readback verification. Reading Location: [facility] Head/Neck CTA 02/10/25 18:31 IMPRESSION: 1. 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 Small caliber distal right ARELY. Consider neuro IR consultation and/or neurology consult for discussion of endovascular thrombectomy versus anticoagulation. 2. Approximately 50% stenosis of the left carotid artery by NASCET criteria. Dr. Thompson discussed these findings via telephone with Dr. Curry at 8:50 pm on 02/10/25. Reading Location: [facility] Discharge Plan Triage Chief Complaint: Chest Pain Other Complaint: Neuro S/Sx ED Provider: Jasbir Curry Dx/Rx/DC Orders Clinical Impression: Acute CVA (cerebrovascular accident), Abnormal computed tomography angiography of head, COPD exacerbation Prescriptions: No Action atorvastatin 80 mg tablet 80 mg PO QHS Qty: 90 1RF insulin degludec [Tresiba FlexTouch U-200] 200 unit/mL (3 mL) insulin pen 50 unit SUBCUT QHS 90 Days Qty: 22.5 1RF clopidogrel [Plavix] 75 mg tablet 75 mg PO DAILY Qty: 90 3RF isosorbide mononitrate 60 mg tablet extended release 24 hr 60 mg PO BID Qty: 180 3RF aspirin 81 MG tablet,chewable 81 mg PO DAILY loratadine 10 mg tablet 10 mg PO DAILY PRN (Reason: allergies) potassium chloride 20 mEq Tablet,Er Particles/Crystals 20 meq PO BIDCM Qty: 60 0RF insulin lispro [Humalog KwikPen Insulin] 100 unit/mL Insulin Pen 20 unit subcut TIDAC PRN (Reason: DIABETES) guaifenesin [Mucus Relief ER] 1,200 mg Tablet Extended Release 12hr 600 mg PO BID amlodipine 10 mg tablet 10 mg PO DAILY Qty: 90 3RF lisinopril 20 mg tablet 20 mg PO BID Qty: 180 3RF ranolazine 1,000 mg tablet extended release 12 hr 1,000 mg PO BID Qty: 60 11RF nitroglycerin 0.4 mg tablet, sublingual 0.4 mg sublingual Q5-15M Qty: 25 3RF albuterol sulfate 90 mcg/actuation HFA aerosol inhaler 2 puff INHALATION 4X/DAY PRN (Reason: Shortness Of Breath) Qty: 8.5 0RF carvedilol 25 mg tablet 25 mg PO BIDCM Qty: 180 3RF clonidine HCl 0.1 mg tablet 0.1 mg PO BID Qty: 180 3RF furosemide [Lasix] 20 mg tablet 60 mg PO DAILY Qty: 270 3RF Primary Care Provider: Beka Bowie Referrals: Beka Bowie MD [Primary Care Provider] - Print Language: Mongolian Disposition Disposition: Acute Care Hospital [facility] What to do if you have Problems For any increased pain, shortness of breath, bleeding, nausea or vomiting, chestpain, or any unexpected problems, contact your Primary Care Provider. Call [facility] ([phone]) or report tothe closest Emergency Room. Call 911 if necessary. 02/10/25 2330 Cosigner Signature (if applicable): CC: Dr. Beka Bowie MD ~ Signed [facility]03-25-2025 Radiology Diagnostic study note [facility] Imaging Services [address] [place] [address] STROKE CTA Head AND Neck W/Con MR#: [id number] Acct: [id number] Name: LATONYA ELDER Rep #: [id number] : 1970 M 54 From: Rajani Thompson MD PCP: Dr. Beka Bowie MD Status: R EG ER Study:STROKE CTA Head AND Neck W/Con Date of Exam: 02/10/25 Exam# [id number] Ordering Dr: Nancy Curry DO PROCEDURE: STROKE CTA HEAD AND NECK W/CON 02/10/2025 REASON FOR EXAM: 54-year-old male, SLURRED SPEECH SINCE SUNDAY TECHNIQUE: CTA imaging of the head and neck from the aortic arch to the skull vertex with intravenous contrast. Coronal and Sagittal reconstruction series were provided. 3D, 3D post processing, 3D reconstructions, Maximum intensity projection (MIPs) Volume rendering and Shaded surface rendering was provided. CONTRAST: Isovue-300 VOLUME: 100ML One or more dose reduction techniques were used (e.g., Automated exposure control, adjustment of the mA and/or kV according to patient size, use of iterative reconstruction technique). RADIATION DOSE SUMMARY: CTDlvol: 100 mGy DLP: 1700 mGycm COMPARISON: Same-day CT head FINDINGS: See same day CT head for discussion of nonvascular findings. Visualization is slightly limited by motion artifact. Standard branching pattern of the aortic archbranch vessels, which are widely patent. Widely patent bilateral vertebral arteries. Calcific plaque of the left carotid bulbresulting in approximately 50% stenosis by NASCET criteria. The right common carotid and internal carotid arteries are patent without focal narrowing by NASCET criteria. No aneurysm or arteriovenous malformation. Non-opacification of the A1 segment of the right anterior cerebral artery. There is retrograde filling of the A2 segment of the right anterior cerebral artery via the patent anterior communicating artery, however the distal right ARELY is of small caliber. There is origin of the right SET UP PERSON. The middle and posterior cerebral arteries are widely patent. Major venous structures: Unremarkable. Other findings: Cervical ACDF hardware. Cervical spondylosis. CT/STROKE CTA Head AND Neck W/Con IMPRESSION: 1. 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 Small caliber distal right ARELY. Consider neuro IR consultation and/or neurology consult for discussion of endovascular thrombectomy versus anticoagulation. 2. Approximately 50% stenosis of the left carotid artery by NASCET criteria. Dr. Thompson discussed these findings via telephone with Dr. Curry at 8:50 pm on 02/10/25. Reading Location: [facility] CC: Dr. Beka Bowie MD; Dr. Jasbir Curry DO ~ Job Coaching: Signed [facility]03-25-2025 Radiology Diagnostic study note [facility] Imaging Services [address] [place] [address] [id number] Chest PA and Lateral MR#: [id number] Acct: [id number] Name: LATONYA ELDER Rep #: [id number] : 1970 M 54 From: Kelvin Woods MD PCP: Dr. Beka Bowie MD Status: R ER Study:Chest PA and Lateral Date of Exam: 02/10/25 Exam# [id number] Ordering Dr: Nancy Curry DO PROCEDURE: CHEST PA AND LATERAL 02/10/2025 REASON FOR EXAM: CHEST PAIN TECHNIQUE: Frontal and lateral views of the chest. COMPARISON: Chest x-ray dated 10/11/2024. FINDINGS: Diffuse bilateral pulmonary infiltrates are present, new since prior examination. This is worse within the lower lung zones. Differential possibility includes, but not limited to diffuse infectious or inflammatory process. No large pleural effusion. No acute osseous abnormalities present. Postsurgical changes again seen within the cervical spine. RAD/Chest PA and Lateral IMPRESSION: Diffuse bilateral pulmonary infiltrates. Differential includes diffuse infection versus inflammatory process within the lungs. Follow-up until complete resolution is recommended. These findings are new since prior examination. Reading Location: [id number] CC: Dr. Beka Bowie MD; Dr. Jasbir Curry DO ~ Job Coaching: Signed [facility]03-25-2025 Radiology Diagnostic study note [facility] Imaging Services [address] [place], [place] [address] STROKE Brain/Head without Cont MR#: [id number] Acct: [id number] Name: LATONYA ELDER Rep #: [id number] : 1970 M 54 From: [facility] pierce Woods MD PCP: Dr. Beka Bowie MD Status: R EG ER Study:STROKE Brain/Head without Cont Date of Exam: 02/10/25 Exam# [id number] Ordering Dr: Nancy Curry DO EXAM: CT head without contrast. CLINICAL HISTORY: Acute mental status changes. COMPARISON: CT head without contrast dated November 21, 2023. TECHNIQUE: CT head was performed with IV contrast. FINDINGS: 1.9 by 1.1 x 1.3 cm hypodense area seen within the deep white matter along the right lateral convexity. This is new since prior examination. Differential possibility includes, but not limited to acute/subacute infarct versus intracranial mass. Recommend MRI brain for further evaluation at this time. There is no intracranial hemorrhage or midline shift present. The calvarium is intact. Large polyps/mucosal retention cysts within the bilateral maxillary sinuses. CT/STROKE Brain/Head without Cont IMPRESSION: 1.9 by 1.1 x 1.3 cm hypodense area seen within the deep white matter along the right lateral convexity. This is new since prior examination. Differential possibility includes, but not limited to acute/subacute infarct versus intracranial mass. Recommend MRI brain for further evaluation at this time. Red Alert: 1.9 by 1.1 x 1.3 cm hypodense area seen within the deep white matter along the right lateral convexity. This is new since prior examination. Differential possibility includes, but not limited to acute/subacute infarct versus intracranial mass. Recommend MRI brain for further evaluation at this time. The critical information above was relayed directly by me by telephone to Jasbir Curry on 02/10/2025 at 8:00 pm with readback verification. Reading Location: [id number] CC: Dr. Beka Bowie MD; Dr. Jasbir Curry DO ~ Job Coaching: Signed [facility]11-25-2024 [facility] Medical Records Department [address] [place] [address] [place] [address] Discharge Summary 10/13/24 1333 MR#: [id number] Acct: [id number] Name: LATONYA ELDER Rep #: [id number] : 1970 54 From: Manuelito Green DO PCP: Dr. Beka Bowie MD Status:DIS IN [id number] Prov[facility] Date of Admission: 10/11/24 Date of Discharge: 10/13/24 Primary Care Physician: Dr. Beka Bowie MD Reason For Visit: AE COPD, ACUTE BRONCHITIS, AE CHF RESP INSUFF Diagnosis Discharge Diagnosis (1) COPD exacerbation: Status: Chronic Code(s): J44.1 - Chronic obstructive pulmonary disease with (acute) exacerbation (2) Congestive heart failure: Status: Acute Code(s): I50.9 - Heart failure, unspecified Qualifiers: Heart failure chronicity: acute on chronic Heart failure type: unspecified Qualified Code(s): I50.9 - Heart failure, unspecified (3) Obesity (BMI 30.0-34.9): Status: Chronic Code(s): E66.9 - Obesity, unspecified (4) Essential hypertension: Status: Chronic Code(s): I10 - Essential (primary) hypertension (5) Insulin dependent diabetes mellitus: Status: Chronic Plan: Final diagnosis: #1 exacerbation of COPD #2 acute bronchitis #3 acute on chronic congestive heart failure with preserved ejection fraction #4 coronary artery disease #5 elevated troponin-not diagnostic of [id number] unclear Medications at Discharge Home Medications aspirin 81 mg chewable tablet 81 mg PO DAILY heart health 04/27/22 loratadine 10 mg tablet 10 mg PO DAILY PRN allergies 06/26/22 carvedilol 25 mg tablet 25 mg PO BIDCM [facility] #180 tabs 04/24/23 clonidine HCl 0.1 mg tablet 0.1 mg PO BID blood pressure #180 tabs 04/24/23 amlodipine 10 mg tablet 10 mg PO DAILY blood pressure #90 tabs 06/25/23 lisinopril 20 mg tablet 20 mg PO BID blood pressure #180 tabs 11/26/23 atorvastatin 80 mg tablet 80 mg PO QHS cholesterol #90 tabs 12/28/23 insulin degludec 200 unit/mL (3 mL) subcutaneous pen (Tresiba FlexTouch U-200 insulin) 50 unit (0.25 mL) subcut QHS blood sugar 3 months #22.5 mL 12/28/23 ranolazine 1,000 mg tablet,extended release,12 hr 1,000 mg PO BID heart #60 tabs 01/03/24 clopidogrel 75 mg tablet (Plavix) 75 mg PO DAILY anti platelet #90 tabs 01/15/24 isosorbide mononitrate 60 mg tablet,extended release 24 hr 60 mg PO BID heart #180 TABLETS 01/15/24 nitroglycerin 0.4 mg sublingual tablet 0.4 mg sublingual Q5-15M chest pain #25 tabs 07/22/24 albuterol sulfate 90 mcg/actuation aerosol inhaler 2 puff inhalation 4X/DAY PRN Shortness Of Breath #8.5 grams 09/01/24 albuterol sulfate 90 mcg/actuation aerosol inhaler (Ventolin HFA) 2 puff inhalation Q4H PRN PRN Wheezing ##1 09/25/24 apixaban 5 mg tablet (Eliquis) 5 mg PO BID #74 tabs 09/25/24 benzonatate 200 mg capsule 200 mg PO TID PRN cough #15 caps 10/13/24 doxycycline monohydrate 100 mg capsule 100 mg PO BID #10 caps 10/13/24 furosemide 20 mg tablet (Lasix) 60 mg (3 x 20 mg) PO DAILY #90 tabs 10/13/24 guaifenesin 1,200 mg tablet, extended release 12 hr (Mucus Relief ER) 1,200 mg PO BID #14 tabs 10/13/24 insulin lispro 100 unit/mL subcutaneous pen (Humalog KwikPen (U-100) Insulin) 20 unit (0.2 mL) subcut TIDAC #0 mL 10/13/24 nicotine 14 mg/24 hr daily transdermal patch 14 mg transdermal DAILY #30 ea 10/13/24 potassium chloride 20 mEq tablet,extended release(part/cryst) 20 meq PO BIDCM #60 tabs 10/13/24 prednisone 20 mg tablet 20 mg PO BID #11 tabs 10/13/24 Hospital Course Operations None Procedures None Summary of Care Provided Minutes Spent on Discharge: 31 Hospital Course: This 54-year-old white male was seen in the emergency room at [facility] with complaints of shortness of breath and yellow sputum production. Patient stated his shortness of breath was worse when he was lying flat. CBC revealed a white blood cell count of 11.9, hemoglobin was 12.6, chemistry profile was unremarkable, beta natruretic peptide was elevated at 261, troponin was elevated at 112, CTA showed mild bibasilar interstitial edema or infiltrates, no evidence of pulmonary embolus was noted. Patient was admitted to PCU for acute exacerbation of COPD and acute on chronic congestive heart failure with preserved ejection fraction, he was treated with IV Lasix and aerosol treatments, patient was also placed on IV doxycycline for bronchitis. Patient improved over his hospital stay, on 10/13/2024, patient was seen and examined: On examination he appeared in good health and spirits. Vital signs as documented. Skin warm and dry and without overt rashes. Neck without JVD, neck was supple, trachea midline, thyroid was normal. Lungs clear bilaterally, normal air movement was noted. Heart exam notable for regular rhythm, normal sounds and absence of murmurs, rubs or gallops. Abdomen unremarkable and without evidence of organomegaly, masses, or abdomin (more content not included)...[facility] 03-17-2024 NoteHNO ID: [id number] Author: RAD RENEE APRN.PERMIT COORDINATOR Service: ? Author Type: Nurse Practitioner Type: Progress Notes Filed: 03/17/2024 07:43 Note Text: This note was created using Fobbler. Prema Elder is a 53 year old male. HPI For the last three days pt awoke with an itchy left eye with matting. No trauma, does not wear contacts. No known contact. Review of Systems Constitutional: Negative for fatigue and fever. HENT: Negative for congestion. Eyes: Positive for discharge, redness and itching. Negative for pain. Respiratory: Negative for choking. Neurological: Negative for headaches. Objective BP 162/90 Pulse 72 Temp 36.2 ?C (97.2 ?F) Resp 16 Wt 107.9 kg (237 lb 14 oz) SpO2 98% Physical Exam Vitals and nursing note reviewed. Constitutional: General: He is not in acute distress. Appearance: Normal appearance. He is not ill-appearing. HENT: Head: Normocephalic. Mouth/Throat: Mouth: Mucous membranes are moist. Eyes: Comments: Injected left eye Cardiovascular: Rate and Rhythm: Normal rate and regular rhythm. Pulmonary: Effort: Pulmonary effort is normal. Breath sounds: Normal breath sounds. Musculoskeletal: General: Normal range of motion. Cervical back: Normal range of motion. Skin: General: Skin is warm and dry. Neurological: General: No focal deficit present. Mental Status: He is alert. Psychiatric: Mood and Affect: Mood normal. Behavior: Behavior normal. Assessment and Plan ASSESSMENT/PLAN: 1. Bacterial conjunctivitis - ICD9: 372.39, 041.9, ICD10: H10.9 - see medication orders - course and contagiousness issues discussed, including hand washing. - Instructed to call if high fever, development of periorbital redness or swelling, eye pain, visual changes, concerns or if symptoms persist. - POLYMYXIN B SULFATE 10,000 UNIT-TRIMETHOPRIM 1 MG/ML EYE DROPS Rad Renee APRN.[facility]04-29-2024 Instructions* Patient Instructions* Rad Renee APRN.RACHEL - 03/17/2024 7:41 AM EDT CONJUNCTIVITIS GENERAL INFORMATION: Conjunctivitis is also known as pink eye. It is an irritation of the underside of the eyelid and the white part of the eye. Conjunctivitis can be caused by infection, chemical irritation, or allergy.If infectious, it is very contagious. INSTRUCTIONS: The doctor has prescribed antibiotic drops or ointment. Use them as prescribed. Do not touch the dropper to the eye. Throw out the medication after completing treatment. If the doctor only prescribedthe medication to be placed in one eye, and the other eye starts to bother you with the same symptoms, you may treat it in the same fashion. To ease discomfort, apply a warm or cool clean washcloth to your eye several times a day for 10 to 20 minutes. Gently wipe away discharge from the eyes with tissues. Wash your hands often with soap and use paper towels to dry them. Do not share towels, washcloths, or pillows. This could spread infection. Do not use eye make-up until the infection has resolved. Keep contact lenses out of eyes until the irritation is gone. Discard any eye make-up which you may have contaminated before the infection wasdiagnosed, and any eye make-up older than one year. Children should not return to school or daycare until the eye is no longer pink. Do not drive or operate machinery if your vision is blurred. Wear sunglasses if your eyes are sensitive to the light. CONTACT YOUR DOCTOR IF YOU OR YOUR CHILD NOTICE: *The eye is still pink 3 days after starting treatment with medicine. *Pain in the eye increases. *The redness is spreading. *Vision becomes blurred. *You have a temperature over 100.5 F (38 C). [facility] History of Present illness Narrative* Rad Renee APRN.RACHEL - 03/17/2024 7:37 AM EDT This note was created using Fobbler. Subjective Latonya Elder is a 53 year old male. HPI For the last three days pt awoke with an itchy left eye with matting. No trauma, does not wear contacts. No known contact. Review of Systems Constitutional: Negative for fatigue and fever. HENT: Negative for congestion. Eyes: Positive for discharge, redness and itching. Negative for pain. Respiratory: Negative for choking. Neurological: Negative for headaches. Objective BP 162/90 Pulse 72 Temp 36.2 C (97.2 F) Resp 16 Wt 107.9 kg (237 lb 14 oz) SpO2 98% Physical Exam Vitals and nursing note reviewed. Constitutional: General: He is not in acute distress. Appearance: Normal appearance. He is not ill-appearing. HENT: Head: Normocephalic. Mouth/Throat: Mouth: Mucous membranes are moist. Eyes: Comments: Injected left eye Cardiovascular: Rate and Rhythm: Normal rate and regular rhythm. Pulmonary: Effort: Pulmonary effort is normal. Breath sounds: Normal breath sounds. Musculoskeletal: General: Normal range of motion. Cervical back: Normal range of motion. Skin: General: Skin is warm and dry. Neurological: General: No focal deficit present. Mental Status: He is alert. Psychiatric: Mood and Affect: Mood normal. Behavior: Behavior normal. Assessment and Plan ASSESSMENT/PLAN: 1. Bacterial conjunctivitis - ICD9: 372.39, 041.9, ICD10: H10.9 - see medication orders - course and contagiousness issues discussed, including hand washing. - Instructed to call if high fever, development of periorbital redness or swelling, eye pain, visual changes, concerns or if symptoms persist. - POLYMYXIN B SULFATE 10,000 UNIT-TRIMETHOPRIM 1 MG/ML EYE DROPS Rad Renee APRN.PERMIT COORDINATOR documented in [facility] Progress note Author Harvey Murphy [facility] December 26, 2023 9:31am Note Date/Time December 26, 2023 9 :25am [facility] Medical Records Department [address] [place] [address] Progress Note - Cardiology 12/26/23 0923 MR#: [id number] Acct: [id number] Name: LATONYA ELDER Rep #:[id number] : 1970 53 From: Harvey Murphy MD PCP: Dr. Beka Bowie MD Status:A DM IN Location: [place] [address] Subjective Subjective The patient is sitting up the side of his bed today complaining of shortness of breath. He notes that he has been wheezing and had episodes of shortness of breath overnight. He was treated with multiple aerosol therapies. He also received IV Lasix as he had been given significant fluid overnight. He was alsoassessed for possible alcohol withdrawal which was not found to be the case. The patient denies any chest pain that was similar to anything like brought him to the hospital. His EKG did not show any acute ischemic changes done during the episode last evening. A chest x- ray done last evening did not show any consolidation or any abnormality in the lung moore. Objective Data Vital Signs: Vital Signs Temp Pulse Resp BP Pulse Ox O2 Del Method O2 Flow Rate 98.5 F 80 14 181/74 H 96 Room Air 2 12/26/23 08:00 12/26/23 08:00 12/26/23 08:00 12/26/23 08:00 12/26/23 08:00 12/26/23 08:00 12/26/23 07:35 Oxygen Flow Rate (L/min) 2 Oxygen Delivery Method Room Air Weight: 226 lb 14.4 oz Body Mass Index (BMI) 34.4 Intake & Output: Intake and Output for Last 24 Hours 12/24/23 12/25/23 12/26/23 23:59 23:59 23:59 Intake Total 114.28 / 623.28 / Balance 114.28 / 623.28 Lab / Micro Data Attestation: I reviewed the patient's lab results. 12/26/23 07:35 12/25/23 05:25 Labs: Laboratory Results - last 24 hr 12/25/23 05:25: Hemoglobin A1c 7.3 H, GGT 24 12/25/23 11:25: POC Glucose 164 H 12/25/23 11:35: APTT 31.7 12/25/23 16:28: POC Glucose 128 H 12/25/23 21:14: POC Glucose 177 H 12/26/23 06:07: POC Glucose 86 12/26/23 07:35: WBC 11.5 H, RBC 5.09, Hgb 15.0, Hct 44.8, MCV 88.0, MCH 29.5, MCHC 33.5, RDW Std Deviation 43.9, RDW Coeff of Narcisa 13.6, Plt Count 235, MPV 10.6 Rhythm Strip Rhythm Strip: Sinus Rhythm Rate: 80 Cardiology Labs/Tests 12/25/23 05:25: Hemoglobin A1c 7.3 H 12/25/23 11:35: APTT 31.7 12/26/23 07:35: WBC 11.5 H, RBC 5.09, Hgb 15.0, Hct 44.8, MCV 88.0, MCH 29.5, MCHC 33.5, Plt Count 235, MPV 10.6 Rhythm: EKG: ECHO: Stress Test: Cardiac Cath: PCI: CT Surgery: Holter monitor: EPS: PPM: CXR: Chest CT Scan: Radiography Diagnostic Testing: Radiology Impression Echocardiogram 12/24/23 16:16 Interpretation Summary The estimated ejection fraction is 50 %. Moderate concentric left ventricular hypertrophy. Compared to prior study, there is no significant change. Ordering Physician: Mary Lewis Referring Physician: BEKA BOWIE Performed By: Opal Taylor RDCS Chest X-Ray 12/25/23 19:05 IMPRESSION: Normal x-ray examination of the chest. Electronically Signed: Guilherme Flores MD at 20:19 EST , Physical Exam Const Constitutional Narrative: Patient is resting seated on the side of the bed complaining of difficulty breathing. HEENT normocephalic Eyes EOMs intact bilaterally Neck no JVD Chest inspection of chest normal Resp normal respiratory effort Auscultation: rhonchi left lower and wheezes expiratory wheezes and throughout Cardio regular rate, regular rhythm, S1 normal heart sound, S2 normal heart sound, no murmurs, no rub and no gallops GI soft to palpation Extremity no pedal edema Extremity Narrative: Right wrist is intact with no evidence of bleeding. Bandage remains in place. Skin no rashes or lesions noted Neuro Neuro Narrative: Alert and oriented x 3. Psych mental status grossly normal Assessment & Plan Assessment/Plan (1) Hypertensive emergency: PLAN: The patient's blood pressure is still somewhat elevated. But chronically it appears in his home environment he runs in the 160 systolic range. The patient should be discharged to home on his home medical regiment. He will be reevaluated in the office in 2 to 3 weeks. He was given a card to call for office visit. (2) Non-ST elevation NE (NSTEMI): PLAN: The patient underwent stenting of the OM circumflex and proximal LAD with resolution of his chest symptoms. The patient does complain of wheezing and shortness of breath he has an appointment with his lung specialist today. He has been minimally responsive toaerosol therapies overnight. His O2 saturation is 96% on room air. PLAN: Plan 1. Continue the patient's home medical regimen. 2. The Plavix should be changed to Brilinta he should be discharged on [id number] mg twice daily. This should be maintained for at least 6 weeks and then if necessary can be switched back to his chronic Plavix. 3. Right cardiovascular standpoint the patient can be discharged home. Charges/Coding Visit Charges Inpatient E&M: 80603 Subs Hosp L2 12/26/23930 <Electronically signed by Harvey Murphy MD> Cosigner Signature (if applicable): CC: ~ Signed [facility] Work Phone: 1(993) 567-928202-07-2024 Discharge summary Author Maldonado Whitt [facility] December 26, 2023 11:16am Note Date/Time December 26, 2023 9 :21am [facility] Medical Records Department [address] [place] [address] Instructions for Home/Discharge Instructions 12/26/23919 MR#: [id number] Acct: [id number] Name: LATONYA ELDER Rep #:[id number] : 1970 53 From: Maldonado mcmullen DO PCP: Dr. Beka Bowie MD Status:A DM IN Discharge Instructions Diet Discharge Diet: Carb Control Diet Activity Discharge Activity: No Restrictions Weight Bearing Status: Full weight bearing Follow Up Care Test Results: Test results from this visit will be discussed in further detail at your follow- up appointment, if applicable. Discharge Plan Admission Admit Date/Time: 12/24/23 15:04 Primary Reason for Your Visit: chest pain Attending Provider: Maldonado Whitt Primary Care Provider: Beka Bowie Consulting Providers: Harvey Murphy; Mary Lewis Instructions Additional Instructions / Restrictions: Take Plavix for prevention of clotting of your new heart stents. Continue all other home meds as normal. Follow up with your PCP and Cardiology in the office. Discharge Orders/Prescriptions Prescriptions: New clopidogrel [Plavix] 75 mg tablet 75 mg PO DAILY Qty: 90 0RF Continued albuterol sulfate 90 mcg/actuation HFA aerosol inhaler 2 puff INHALATION 4X/DAY PRN (Reason: Shortness Of Breath) Patient Comments: inhale 2 puffs INTO THE LUNGS UP TO FOUR TIMES A DAY NEEDED atorvastatin 80 mg tablet 80 mg PO QHS aspirin 81 MG tablet,chewable 81 mg PO DAILY loratadine 10 mg tablet 10 mg PO DAILY PRN (Reason: allergies) insulin degludec [Tresiba FlexTouch U-200] 200 unit/mL (3 mL) insulin pen 50 unit SUBCUT QHS Patient Comments: inject 50 units subcutaneously at bedtime for diabetes isosorbide mononitrate 60 mg tablet extended release 24 hr 60 mg PO DAILY Patient Comments: Patient states he only takes once a day nitroglycerin 0.4 mg tablet, sublingual 0.4 mg sublingual Q5M Rx Instructions: PLACE 1 TABLET UNDER TONGUE FOR CHEST PAIN. CALL 911 IF NO IMPROVEMENT AFTER 5 MIN. REPEAT DOSE TWICE IF NEEDED Humalog KwikPen Insulin 200 unit/mL (3 mL) insulin pen 14 unit subcut TIDCM Rx Instructions: inject 14 units subcutaneously three times a day (SEE PROTOCOL) carvedilol 25 mg tablet 25 mg PO BIDCM Qty: 180 3RF clonidine HCl 0.1 mg tablet 0.1 mg PO BID Qty: 180 3RF amlodipine 10 mg tablet 10 mg PO DAILY Qty: 90 3RF lisinopril 20 mg tablet 20 mg PO BID Qty: 180 3RF ranolazine 1,000 mg tablet extended release 12 hr 1,000 mg PO BID Qty: 180 3RF Discontinued clopidogrel 75 mg tablet 75 mg PO DAILY Rx Instructions: take 1 tablet by mouth once daily Referrals / Follow Up: Beka Bowie MD [Primary Care Provider] - Disposition Disposition (needs filled in before D/C Order can be placed): Home, Self Care 12/26/23 1116<Electronically signed by Maldonado Whitt DO>Maldonado Whitt DO CC: Dr. Beka Bowie MD; Dr. Harvey Murphy MD; Dr. Mary Lewis MD ~ Signed [facility] Work Phone: 1(167) 142-301702-07-2024 Progress note Author Maldonado Whitt [facility] December 25, 2023 11:15pm Note Date/Time December 25, 2023 3 :18pm [facility] Medical Records Department [address] [place] [address] Progress Note - Hospitalist 12/25/23 1518 MR#: [id number] Acct: [id number] Name: LATONYA ELDER Rep #:[id number] : 1970 53 From: Maldonado mcmullen DO PCP: Dr. Beka Bowie MD Status:A DM IN Location: [place] [address]- Reason for Visit Reason for Visit: Diagnoses Nicotine dependence, cigarettes, uncomplicated (12/24/23) Essential (primary) hypertension (12/24/23) Hypertensive urgency (12/24/23) Hypertensive emergency (12/24/23) Non-ST elevation (NSTEMI) myocardial infarction (12/24/23) Chronic ischemic heart disease, unspecified (12/24/23) Chronic obstructive pulmonary disease, unspecified (12/24/23) Other specified abnormalities of plasma proteins (12/24/23) Presence of coronary angioplasty implant and graft (12/24/23) Subjective Subjective Patient admitted yesterday afternoon for chest pain and suspected hypertensive emergency. Seen at bedside later this morning. Patient was sitting comfortablyin bedside chair, conversing normally, in no acute distress. Patient was quite upset that his left heart cath had not been done yet, since he had been NPO since midnight. He denied any chest pain or shortness of breath this morning atrest or with exertion. No other acute concerns at this time. Objective Data Objective Data Vital Signs: Vital Signs Temp Pulse Resp BP Pulse Ox O2 Del Method 98 F 80 21 H 117/84 H 96 Room Air 12/25/23 12:00 12/25/23 12:00 12/25/23 12:00 12/25/23 12:00 12/25/23 12:00 12/25/23 12:15 Oxygen Delivery Method Room Air Weight: 102.92 kg Body Mass Index (BMI) 34.4 Intake & Output: Intake and Output for Last 24 Hours 12/23/23 12/24/23 12/25/23 23:59 23:59 23:59 Intake Total 114.28 / 623.28 1068.80 / 1068.80 Balance 114.28 / 623.28 1068.80 / 1068.80 Lab / Micro Data 12/25/23 05:25 12/25/23 05:25 Labs: Laboratory Results - last 24 hr 12/24/23 14:20: Troponin I High Sens 280 H* 12/24/23 17:13: POC Glucose 162 H 12/24/23 18:25: Troponin I High Sens 384 H* 12/24/23 20:38: POC Glucose 233 H 12/24/23 20:55: Troponin I High Sens 387 H* 12/24/23 23:10: APTT 27.6 12/25/23 05:25: WBC 14.2 H, RBC 5.04, Hgb 15.1, Hct 44.0, MCV 87.3, MCH 30.0, MCHC 34.3, RDW Std Deviation 43.6, RDW Coeff of Narcisa 13.5, Plt Count 246, MPV 10.2, Immature Gran % (Auto) 0.600, Neut % (Auto) 75.1 H, Lymph % (Auto) 14.1 L,[place] % (Auto) 8.8, Eos % (Auto) 1.0, Baso % (Auto) 0.4, Absolute Neuts (auto) 10.6 H, Absolute Lymphs (auto) 2.00, Nucleated RBC % 0, APTT 28.1, Sodium 136, Potassium 3.4 L, Chloride 105, Carbon Dioxide 26.0, Anion Gap 5, BUN 12, Creatinine 0.87, Estim Creat Clear Calc 115.49, Est GFR (MDRD) Af Amer 119, Est GFR (MDRD) Non-Af 98, BUN/Creatinine Ratio 13.8, Glucose 179 H, Hemoglobin A1c 7.3 H, Calcium 8.7, Magnesium 1.8, Total Bilirubin 0.60, AST 14 L, ALT 34, Alkaline Phosphatase 108, Total Protein 7.0, Albumin 3.3, Globulin 3.7, Albumin/Globulin Ratio 0.9, Triglycerides 181, Cholesterol 171, LDL Cholesterol 101, VLDL Cholesterol 36, HDL Cholesterol 34 L, TSH 1.74 12/25/23 06:25: POC Glucose 196 H 12/25/23 11:25: POC Glucose 164 H 12/25/23 11:35: APTT 31.7 Radiography Diagnostic Testing: Radiology Impression Echocardiogram 12/24/23 16:16 Interpretation Summary The estimated ejection fraction is 50 %. Moderate concentric left ventricular hypertrophy. Compared to prior study, there is no significant change. Ordering Physician: Mary Lewis Referring Physician: BEKA BOWIE Performed By: Opal Taylor RDCS Rhythm Strip Rhythm Strip: Sinus Rhythm Physical Exam Const alert, oriented x3 and no apparent distress Constitutional Narrative: Middle aged male, obese, sitting comfortably in bedside chair, conversing normally, no acute distress. General Appearance: cooperative and comfortable HEENT normocephalic, head/scalp atraumatic, hearing grossly normal bilaterally, nasal mucous membranes and turbinates normal and moist oral mucous membranes Eyes PERRL, EOMs intact bilaterally and conjunctivae normal Neck full ROM, no lymphadenopathy and supple Lymph Lymphatic: no lymphadenopathy noted Chest inspection of chest normal Resp normal respiratory effort, normal air movement, no use of accessory muscles and clear to auscultation bilaterally Cardio regular rate, regular rhythm, no murmurs and peripheral pulses 2+ throughout GI normal to inspection, nondistended, normoactive bowel sounds, soft to palpation,non-tender and non-distended Back/Spine normal ROM Extremity normal to inspection, full ROM and no pedal edema Skin no rashes or lesions noted Neuro no focal motor deficits and no sensory deficits noted Speech: speech normal Psych mental status grossly normal Assessment & Plan Assessment/Plan (1) Non-ST elevation NE (NSTEMI): (2) Hypertensive emergency: PLAN: Plan Patient is a 53 year old male who presented to [facility] ED on 12/24/2023 with worsening chest pain. 1. NSTEMI, history of CAD with stenting x 7 Presented with chest pain and elevated troponins in setting of severe HTN. No ischemic changes on EKG. CXR nonacute. Initiated on heparin drip on admit given concern for NSTEMI. TTE 12/25 showed EF 50%, moderate concentric LV hypertrophy, stable from previous TTE. - Cardiology following. S/p left heart cath on 12/25 with 2 stents successfully placed (90% proximal LAD lesion, 80% proximal OM1 lesion). Plan is for aspirin indefinitely and Brilinta for at least 12 months. 2. Hypertensive emergency, improved Presented with BPs consistently 200s-210s/100s-120s. Symptoms on admit of chestpain, nausea/vomiting and mild shortness of breath. Cardiology contacted in ED,patient initiated on nitro drip and home medications restarted. - Cardiology following as above. BP normalized with nitro drip plus home meds, nitro drip discontinued on 12/25. Continue home nitrate, amlodipine, coreg, clonidine, lisinopril. Chronic medical conditions: - COPD: Not on home O2. Stable, no acute exacerbation. Continue home inhalers. - Obesity: BMI 34 on admit. Complicated hospital course, care and prognosis. - Type 2 diabetes mellitus: Home regimen of insulin degludec 50 units at night, Humalog 14 units 3 times daily with meals. Started on Lantus 25 units at night,5 units with meals plus sliding scale on admission as patient was NPO. Will uptitrate regimen as needed. - Tobacco use: Encouraged cessation. Nicotine replacement therapy available as needed. DVT prophylaxis: Lovenox Code status: Full code, verified Expected disposition: Home, 1-2 days Total clinical time spent by myself addressing the patient's medical issues, reviewing all the data, and collaborating with patient's care team: 35 minutes. Charges/Coding Visit Charges Inpatient E&M: 76681 Subs Hosp L2 12/25/23 2440 <Electronically signed by Maldonado Whitt DO> Cosigner Signature (if applicable): CC: ~ Signed [facility] Work Phone: 1(601) 250-177302-06-2024 Progress note Author Harvey Murphy [facility] December 25, 2023 7:52am Note Date/Time December 25, 2023 7 :53am [facility] Medical Records Department [address] [place] [address] Progress Note - Cardiology 12/25/23 0747 MR#: [id number] Acct: [id number] Name: LATONYA ELDER Matt Rep #:[id number] : 1970 53 From: Harvey Murphy MD PCP: Dr. Beka Bowie MD Status:A DM IN Location: [place] [address]- 1 Subjective Subjective Patient reports he had an episode of chest pain at rest approximately 0300 hrs. this morning that awoke him from sleep lasted about 5 minutes and resolved. Thepatient's blood pressure had finally come down after 2 extra doses of clonidine and IV nitroglycerin. Blood pressure this morning is 120 over 70s. The patientdenies any chest symptoms this morning. Troponins were 2 80-3 84-3 87. His BNPwas 104. Echocardiogram is pending at this time. The patient reports that the symptoms are identical to what he experienced priorto his last stenting procedure. However, he has had cast where he presented with similar symptoms and did not need further intervention. Objective Data Vital Signs: Vital Signs Temp Pulse Resp BP Pulse Ox O2 Del Method 98.4 F 77 16 124/72 H 94 Room Air 12/25/23 06:00 12/25/23 07:32 12/25/23 07:32 12/25/23 07:32 12/25/23 07:32 12/25/23 07:32 Oxygen Delivery Method Room Air Weight: 226 lb 14.4 oz Body Mass Index (BMI) 34.4 Intake & Output: Intake and Output for Last 24 Hours 12/23/23 12/24/23 12/25/23 23:59 23:59 23:59 Intake Total 114.28 / 623.28 720.20 / 720.20 Balance 114.28 / 623.28 720.20 / 720.20 Lab / Micro Data Attestation: I reviewed the patient's lab results. 12/25/23 05:25 12/25/23 05:25 Labs: Laboratory Results - last 24 hr 12/24/23 12:20: WBC 12.0 H, RBC 5.82, Hgb 17.3 H, Hct 51.4, MCV 88.3, MCH 29.7, MCHC 33.7, RDW Std Deviation 43.1, RDW Coeff of Narcisa 13.5, Plt Count 274, MPV 10.9, Immature Gran % (Auto) 0.900, Neut % (Auto) 67.1, Lymph % (Auto) 20.4, [place] % (Auto) 10.0, Eos % (Auto) 0.9, Baso % (Auto) 0.7, Absolute Neuts (auto) 8.1 H, Absolute Lymphs (auto) 2.44, Nucleated RBC % 0, PT 12.0, INR 0.9, APTT 24.7, D-Dimer Quant (PE/DVT) 0.47, Sodium 141, Potassium 3.6, Chloride 104, CarbonDioxide 28.0, Anion Gap 9, BUN 14, Creatinine 1.13, Est GFR (MDRD) Af Amer 88, Est GFR (MDRD) Non-Af 72, BUN/Creatinine Ratio 12.4, Glucose 286 H, Calcium 9.8,Troponin I High Sens 300 H*, B-Natriuretic Peptide 103.6 H 12/24/23 14:20: Troponin I High Sens 280 H* 12/24/23 17:13: POC Glucose 162 H 12/24/23 18:25: Troponin I High Sens 384 H* 12/24/23 20:38: POC Glucose 233 H 12/24/23 20:55: Troponin I High Sens 387 H* 12/24/23 23:10: APTT 27.6 12/25/23 05:25: WBC 14.2 H, RBC 5.04, Hgb 15.1, Hct 44.0, MCV 87.3, MCH 30.0, MCHC 34.3, RDW Std Deviation 43.6, RDW Coeff of Narcisa 13.5, Plt Count 246, MPV 10.2, Immature Gran % (Auto) 0.600, Neut % (Auto) 75.1 H, Lymph % (Auto) 14.1 L,[place] % (Auto) 8.8, Eos % (Auto) 1.0, Baso % (Auto) 0.4, Absolute Neuts (auto) 10.6 H, Absolute Lymphs (auto) 2.00, Nucleated RBC % 0, APTT 28.1, Sodium 136, Potassium 3.4 L, Chloride 105, Carbon Dioxide 26.0, Anion Gap 5, BUN 12, Creatinine 0.87, Estim Creat Clear Calc 115.49, Est GFR (MDRD) Af Amer 119, Est GFR (MDRD) Non-Af 98, BUN/Creatinine Ratio 13.8, Glucose 179 H, Calcium 8.7, Magnesium 1.8, Total Bilirubin 0.60, AST 14 L, ALT 34, Alkaline Phosphatase 108,Total Protein 7.0, Albumin 3.3, Globulin 3.7, Albumin/Globulin Ratio 0.9, Triglycerides 181, Cholesterol 171, LDL Cholesterol 101, VLDL Cholesterol 36, HDL Cholesterol 34 L, TSH 1.74 12/25/23 06:25: POC Glucose 196 H Rhythm Strip Rhythm Strip: Sinus Rhythm Cardiology Labs/Tests 12/24/23 12:20: WBC 12.0 H, RBC 5.82, Hgb 17.3 H, Hct 51.4, MCV 88.3, MCH 29.7, MCHC 33.7, Plt Count 274, MPV 10.9, Immature Gran % (Auto) 0.900, Neut % (Auto) 67.1, Lymph % (Auto) 20.4, [place] % (Auto) 10.0, Eos % (Auto) 0.9, Baso % (Auto) 0.7, Absolute Neuts (auto) 8.1 H, Nucleated RBC % 0, PT 12.0, INR 0.9, APTT 24.7, D- Dimer Quant (PE/DVT) 0.47, Sodium 141, Potassium 3.6, Chloride 104, Carbon Dioxide 28.0, Anion Gap 9, BUN 14, Creatinine 1.13, Est GFR (MDRD) Af Amer 88, Est GFR (MDRD) Non-Af 72, BUN/Creatinine Ratio 12.4, Glucose 286 H, Calcium 9.8, B-Natriuretic Peptide 103.6 H 12/24/23 23:10: APTT 27.6 12/25/23 05:25: WBC 14.2 H, RBC 5.04, Hgb 15.1, Hct 44.0, MCV 87.3, MCH 30.0, MCHC 34.3, Plt Count 246, MPV 10.2, Immature Gran % (Auto) 0.600, Neut % (Auto) 75.1 H, Lymph % (Auto) 14.1 L, [place] % (Auto) 8.8, Eos % (Auto) 1.0, Baso % (Auto) 0.4, Absolute Neuts (auto) 10.6 H, Nucleated RBC % 0, APTT 28.1, Sodium 136, Potassium 3.4 L, Chloride 105, Carbon Dioxide 26.0, Anion Gap 5, BUN 12, Creatinine 0.87, Est GFR (MDRD) Af Amer 119, Est GFR (MDRD) Non-Af 98, BUN/Creatinine Ratio 13.8, Glucose 179 H, Calcium 8.7, Magnesium 1.8, Total Bilirubin 0.60, Triglycerides 181, Cholesterol 171, LDL Cholesterol 101, VLDL Cholesterol 36, HDL Cholesterol 34 L Rhythm: EKG: ECHO: Stress Test: Cardiac Cath: PCI: CT Surgery: Holter monitor: EPS: PPM: CXR: Chest CT Scan: Radiography Diagnostic Testing: Radiology Impression Chest X-Ray 12/24/23 12:50 IMPRESSION: Borderline cardiomegaly. The lungs are clear. Electronically Signed: Jin Woodall MD at 13:13 EST , Physical Exam Const oriented x3 HEENT normocephalic Eyes EOMs intact bilaterally Neck no JVD Chest inspection of chest normal Resp Auscultation: rhonchi throughout and wheezes Cardio regular rate, regular rhythm, S1 normal heart sound, S2 normal heart sound, no murmurs, no rub and no gallops Peripheral Pulses: radial pulses present right 2+ GI soft to palpation Extremity normal to inspection Skin no rashes or lesions noted Psych mental status grossly normal Assessment & Plan Assessment/Plan (1) Non-ST elevation NE (NSTEMI): PLAN: Patient's enzymes appear to peaked and leveled off at around 387. His BNPis 104. The patient's symptoms he claims are identical to what he had with his last stenting procedure. And they are occurring at rest. The EKG has not shownany significant ischemic changes but it is not normal at baseline. Given the patient's past medical history and his current symptoms I would recommend we proceed with left heart catheterization to definitively rule out progression of his coronary disease in this patient who continues to smoke is diabetic and severely hypertensive. (2) Hypertensive emergency: PLAN: Hypertensive emergency has resolved his blood pressure is much better controlled we will reinstitute his home medical regimen. I did discuss with himin great detail the mandatory nature that he not miss his clonidine in his home environment. He reports to be compliant with all of his medications. PLAN: Plan 1. 2D echocardiogram today for LV function. 2. Proceed with left heart catheterization to define his coronary anatomy. Charges/Coding Visit Charges Inpatient E&M: 67130 Subs Hosp L2 12/25/23 0752 <Electronically signed by Harvey Murphy MD> Cosigner Signature (if applicable): CC: ~ Signed [facility] Work Phone: [phone]) 202-904102-05-2024 Consult note Author Harvey Murphy [facility] December 24, 2023 3:20pm Note Date/Time December 24, 2023 2 :56pm [facility] Medical Records Department [address] [place] [address] Consultation - Cardiology 12/24/23 1454 MR#: [id number] Acct: [id number] Name: LATONYA ELDER Rep #:[id number] : 1970 53 From: Harvey Murphy MD PCP: Dr. Beka Bowie MD Status:A DM IN Location: [place] [address] Assessment & Plan Assessment/Plan (1) Non-ST elevation NE (NSTEMI): PLAN: The patient's symptoms are consistent with a hypertensive emergency. His blood pressures 200-2 20 systolic in the emergency department he has a prior history of similar presentation back in 2021. The patient does have known coronary artery disease, he is diabetic and hypertensive and continues to smoke. Troponins will be trended. The blood pressure will be aggressively treated with IV nitro in addition to as needed clonidine to get his blood pressure down in the 1 50-1 70 systolic range. His baseline blood pressure at his last stresstest was 160 systolic. The patient will be anticoagulated with heparin IV nitroglycerin is instituted and his Plavix and aspirin will be continued. Pending the outcome of his trended troponins we will evaluate him for invasive evaluation of his coronary anatomy in the next 24 hours. (2) Hypertensive emergency: PLAN: Reinstitute the patient's home medical regiment. He currently does not have evidence of renal insufficiency. However he is diabetic and severely hypertensive. Will reinstitute his home oral medical therapy augment that with IV nitroglycerin and as needed p.o. clonidine as indicated. If he does not comeunder control with bedrest and reinstitution of his medical therapy secondary etiologies should be investigated. (3) Chest pain: QUALIFIERS: Chest pain type: chest pain due to myocardial ischemia Ischemic chest pain type: unspecified angina pectoris type Qualified Code(s): I25.9 - Chronic ischemic heart disease, unspecified PLAN: The patient's chest discomfort is consistent with an anginal equivalent hedoes complain of some shortness of breath and he has known coronary disease but he is also having a hypertensive urgency/emergency. (4) History of coronary artery stent placement: PLAN: The patient's secondary risk factors of continue to be aggressively treated with control of his blood pressure his diabetes and his hyperlipidemia. Continue his current atorvastatin 80 mg daily clopidogrel and aspirin. Will also be treated with aggressive treatment of his diabetes and blood pressure. PLAN: Plan 1. IV nitro and as needed clonidine. 2. Continue home medical therapy. 3. Trend troponins and if they continue to accelerate and elevate would consider invasive evaluation in the next 24 hours. 4. Smoking cessation. HPI Consult Data Date of Consult: 12/24/23 HPI Narrative Reason for Consultation: Past pain with positive troponins HPI Narrative: LATONYA ELDER, is a 53 M who presents complaining of chest discomfort that started approximately 1000 hrs. this morning. He took 2 sublingual nitros in sequence with resolution of the chest discomfort. The discomfort recurred at noon and hecalled EMS. He was brought to the emergency department where he presented with significant hypertension and his troponins were elevated. The patient had a recent stress test December 11 2023. The patient went 5 minutes on a treadmill at achieving 81% of age-predicted heart rate. He had a hypertensive response. This nuclear scan revealed an apical infarct with no induced ischemia. Patient reports that his symptoms have a clinical essentially resolved he has some residual soreness but his blood pressure remains over 200 systolic. An IV nitroglycerin drip is being instituted. The patient is also received IV hydralazine. He reports to me that he has taken all of his medications as ordered. The patient also complains of some shortness of breath but denies any PND orthopnea or lower extremity edema. He does report increased mucus production over the last few days but denies any fevers or chills. No one else has been sick in the family and he has not been exposed to any viral illnesses that he is aware of. Patient has a history of a non-ST segment elevation microinfarction November 2016he had a stent placed to the second obtuse marginal branch of the circumflex. He presented in November 2020 with a non-STEMI previously placed stent in the LADwas patent the left circumflex artery had mild in-stent stenosis there was new disease involving the proximal and mid right coronary artery which was treated with stenting. He also was diagnosed with diabetes. In October 2021 who presented to the emergency department with chest discomfort and had a cardiac cath which resulted in drug-eluting stent to the mid LAD he Re-presented in December 2021 with chest discomfort his troponins did not increase and he was discharged home April 2022 he Re-presented to the emergency department with chestpain and a heart cath showed patency of the mid LAD stent OM stent and RCA stents the he had a proximal LAD lesion to the stent which was an intermediate stenosis of 50 to 60% and IFR repeated twice was within normal limits. The patient Re-presented again on June 26, 2022 with chest discomfort and a non-STEMI. His blood pressure was markedly elevated and his medications were adjusted he was not recath. The last time he was seen in the office was July 10, 2022. His EKG shows normal sinus rhythm with nonspecific ST-T wave changes which is similar to an old EKG that was present in the ED. [facility] Medical History Acute sinusitis, unspecified Asthma Atherosclerosis of [place] coronary artery of [place] heart without angina pectoris Chronic obstructive pulmonary disease (COPD) Cluster headache Community acquired pneumonia COPD (chronic obstructive pulmonary disease) Coronary artery disease Diabetes Essential hypertension Headache History of non-ST elevation myocardial infarction (NSTEMI) (11/22/20) Hyperlipidemia Insulin dependent diabetes mellitus Ischemic cardiomyopathy Left shoulder pain Migraine Myocardial infarct Nicotine dependence Non-ST elevation NE (NSTEMI) Obesity Obesity (BMI 30.0-34.9) Smoker Home Medications albuterol sulfate 90 mcg/actuation aerosol inhaler 2 puff inhalation 4X/DAY PRN Shortness Of Breath 04/27/22 [History Last Taken 04/27/22] aspirin 81 mg chewable tablet 81 mg PO DAILY heart health 04/27/22 [History Last Taken 04/27/22] atorvastatin 80 mg tablet 80 mg PO QHS cholesterol 04/27/22 [History Last Taken 04/26/22] loratadine 10 mg tablet 10 mg PO DAILY PRN allergies 06/26/22 [History Last Taken Unknown] isosorbide mononitrate 60 mg tablet,extended release 24 hr See Rx Instructions .Route .COMPLEX #60 TABLETS 04/02/23 [Rx Last Taken Unknown] insulin lispro 200 unit/mL (3 mL) subcutaneous pen (Humalog KwikPen U-200 Insulin) See Rx Instructions .Route .COMPLEX #19 mL 04/12/23 [Rx Last Taken Unknown] carvedilol 25 mg tablet 25 mg PO BIDCM #180 tabs 04/24/23 [Rx Last Taken Unknown] clonidine HCl 0.1 mg tablet 0.1 mg PO BID #180 tabs 04/24/23 [Rx Last Taken Unknown] clopidogrel 75 mg tablet See Rx Instructions .Route .COMPLEX #90 TABLETS 05/28/23 [Rx Last Taken Unknown] amlodipine 10 mg tablet 10 mg PO DAILY #90 tabs 06/25/23 [Rx Last Taken Unknown] insulin degludec 200 unit/mL (3 mL) subcutaneous pen (Tresiba FlexTouch U-200 insulin) 50 unit subcut QHS 11/21/23 [History Last Taken Unknown] lisinopril 20 mg tablet 20 mg PO BID blood pressure #180 tabs 11/26/23 [Rx Last Taken Unknown] ProAir RespiClick 90 mcg/actuation breath activated (albuterol sulfate) See Rx Instructions inhalation PRN PRN Bronchodilation #1 ea 12/12/23 [Rx Last Taken Unknown] nitroglycerin 0.4 mg sublingual tablet See Rx Instructions .Route .COMPLEX #25 tabs 12/14/23 [Rx Last Taken Unknown] ranolazine 1,000 mg tablet,extended release,12 hr 1,000 mg PO BID #180 tabs 12/18/23 [Rx Last Taken Unknown] Allergy/AdvReac Type Severity Reaction Status Date / Time amoxicillin trihydrate Allergy Rash Verified 12/06/23 15:11 [From Augmentin] potassium clavulanate Allergy Rash Verified 12/06/23 15:11 [From Augmentin] codeine AdvReac Nausea Verified 12/06/23 15:11 Family History Sister Myocardial infarction, Onset Age: 41 Diabetes Mother COPD (chronic obstructive pulmonary disease) Asthma Rheumatoid arthritis CVA (cerebral vascular accident) Hypertension Grandmother Diabetes Surgical History History of appendectomy History of coronary artery stent placement (11/18/21) History of hernia repair (2008) History of neck surgery History of umbilical hernia repair (1971) Social History Smoking Status: Current every day smoker tobacco type: cigarettes Tobacco: How many years used: 20 Electronic Cigarette Use: not used second hand exposure: Yes alcohol intake: current alcohol intake frequency: 0-2 drinks per day Alcohol type: beer substance use type: does not use caffeine: Yes Type: carbonated beverages Number of servings: 2 and tea Number of servings: 6 what type of physical activity do you participate in: none ROS Constitutional Constitutional: Reports as per HPI Eyes Eyes: Reports systems reviewed and no addt'l complaints, except as documented ENT HEENT: Reports systems reviewed and no addt'l complaints, except as documented Cardiovascular Cardiovascular: Reports as per HPI Respiratory/Chest Respiratory/Chest: Reports as per HPI Gastrointestinal Gastrointestinal: Reports systems reviewed and no addt'l complaints, except as documented Genitourinary Genitourinary: Reports systems reviewed and no addt'l complaints, except as documented Musculoskeletal Musculoskeletal: Reports systems reviewed and no addt'l complaints, except as documented Integumentary Integumentary: Reports systems reviewed and no addt'l complaints, except as documented Neurologic Neurologic: Reports systems reviewed and no addt'l complaints, except as documented Psychiatric Psychiatric: Reports systems reviewed and no addt'l complaints, except as documented Endocrine Endocrinology: Reports as per HPI Hematologic/Lymphatic Hematologic/Lymphatic: Reports systems reviewed and no addt'l complaints, exceptas documented Allergic/Immunologic Allergic/Immunologic: Reports systems reviewed and no addt'l complaints, except as documented Physical Exam Const oriented x3 HEENT normocephalic Eyes EOMs intact bilaterally Neck no JVD and no carotid bruits Chest inspection of chest normal Resp normal respiratory effort Auscultation: crackles bilateral and localized (Bases) and wheezes expiratory wheezes Cardio regular rate, regular rhythm, S1 normal heart sound, S2 normal heart sound, no murmurs, no rub and no gallops Cardio Narrative: Distant heart tones GI normal to inspection, nondistended, normoactive bowel sounds Extremity no pedal edema Skin no rashes or lesions noted Psych mental status grossly normal Risk Stratification Risk Stratification Applicable: Yes Age >/= 65: No >/= 3 CAD Risk Factors (HTN, HLD, DM, family hx of CAD, or current smoker): Yes Aspirin Use in the Past 7 Days: Yes Severe Angina (>/= episodes in 24 hours): Yes EKG ST Changes >/= 0.5mm: No Positive Cardiac Marker: Yes ESTEPHANIA Risk Stratification Score: 4 ESTEPHANIA % Risk: 20% Risk Charges/Coding Visit Charges Inpatient E&M: 36034 Init Hosp L3 Objective Data Vital Signs: Vital Signs Temp Pulse Resp BP Pulse Ox O2 Del Method 97.6 F L 94 17 210/119 H 94 Room Air 12/24/23 12:19 12/24/23 14:00 12/24/23 14:00 12/24/23 14:00 12/24/23 14:00 12/24/23 14:00 Oxygen Delivery Method Room Air Lab / Micro Data Attestation: I reviewed the patient's lab results. 12/24/23 12:20 12/24/23 12:20 Labs: Laboratory Results - last 24 hr 12/24/23 12:20: WBC 12.0 H, RBC 5.82, Hgb 17.3 H, Hct 51.4, MCV 88.3, MCH 29.7, MCHC 33.7, RDW Std Deviation 43.1, RDW Coeff of Narcisa 13.5, Plt Count 274, MPV 10.9, Immature Gran % (Auto) 0.900, Neut % (Auto) 67.1, Lymph % (Auto) 20.4, [place] % (Auto) 10.0, Eos % (Auto) 0.9, Baso % (Auto) 0.7, Absolute Neuts (auto) 8.1 H, Absolute Lymphs (auto) 2.44, Nucleated RBC % 0, PT 12.0, INR 0.9, APTT 24.7, D-Dimer Quant (PE/DVT) 0.47, Sodium 141, Potassium 3.6, Chloride 104, Carbon Dioxide 28.0, Anion Gap 9, BUN 14, Creatinine 1.13, Est GFR (MDRD) Af Amer 88, Est GFR (MDRD) Non-Af 72, BUN/Creatinine Ratio 12.4, Glucose 286 H, Calcium 9.8, Troponin I High Sens 300 H*, B-Natriuretic Peptide 103.6 H Cardiology Labs/Tests 12/24/23 12:20: WBC 12.0 H, RBC 5.82, Hgb 17.3 H, Hct 51.4, MCV 88.3, MCH 29.7, MCHC 33.7, Plt Count 274, MPV 10.9, Immature Gran % (Auto) 0.900, Neut % (Auto) 67.1, Lymph % (Auto) 20.4, [place] % (Auto) 10.0, Eos % (Auto) 0.9, Baso % (Auto) 0.7, Absolute Neuts (auto) 8.1 H, Nucleated RBC % 0, PT 12.0, INR 0.9, APTT 24.7, D- Dimer Quant (PE/DVT) 0.47, Sodium 141, Potassium 3.6, Chloride 104, Carbon Dioxide 28.0, Anion Gap 9, BUN 14, Creatinine 1.13, Est GFR (MDRD) Af Amer 88, Est GFR (MDRD) Non-Af 72, BUN/Creatinine Ratio 12.4, Glucose 286 H, Calcium 9.8, B-Natriuretic Peptide 103.6 H Rhythm: EKG: ECHO: Stress Test: Cardiac Cath: PCI: CT Surgery: Holter monitor: EPS: PPM: CXR: Chest CT Scan: Radiography Diagnostic Testing: Radiology Impression Chest X-Ray 12/24/23 12:50 IMPRESSION: Borderline cardiomegaly. The lungs are clear. Electronically Signed: Jin Woodall MD at 13:13 EST Reading Location ID and State: [address] [place] [address] , Service support , EKG Initial EKG: Attestation: I personally reviewed and interpreted this EKG as follows: Prior EKG tracings: available for review Interpretation: Normal sinus rhythm with nonspecific ST-T wave changes no significant change from prior EKG. 12/24/23 1520 <Electronically signed by Harvey Murphy MD> Cosigner Signature (if applicable): CC: Dr. Beka Bowie MD~ Signed [facility] Work Phone: [phone]) 520-652802-05-2024 History and physical note Author Mary Lewis [facility] December 24, 2023 3:15pm Note Date/Time December 24, 2023 3 :13pm [facility] Medical Records Department [address] [place] [address] H&P Exam - Hospitalist 12/24/23 1503 MR#: [id number] Acct: [id number] Name: LATONYA ELDER Rep #:[id number] : 1970 53 From: Mary Lewis MD PCP: Dr. Beka Bowie MD Status:A DM IN Location: [facility] [id number] HPI - General General Date of Admission: 12/24/23 Date of Service: 12/24/23 Chief Complaint: Chest pain, SOB HPI Narrative LATONYA ELDER, is a 53-year-old male history of COPD, tobacco use, hypertension, type 2 diabetes mellitus, CAD with 7 stents who presented to [facility] ED 12/24/2023 with chest pain for the past month that worsened today. Patient noted having a stress test a few weeks ago which was reportedly negativeand his medicines changed but since that time he has been having chest pain and left arm pain with some nausea and vomiting. The pain is more like a pressure sensation. Patient tried nitroglycerin but his chest pain persisted prompting him to come to the ED. In the ED initial blood pressure 202/110. Chest x-ray with borderline cardiomegaly, BNP of 103 and first troponin of 300. Cardiology contacted and advised patient be placed on heparin drip and nitro drip, unclear if NSTEMI versus hypertensive emergency and it was recommended the patient be admitted. Hospitalist contacted for admission. Patient seen at bedside and reported chest pain off-and-on for a month but this morning woke up with the pain and shortness of breath, took a nitro initially which was not very helpful,took a second 1 which did give him some relief and he laid down for 15 minutes but the pain returned so he took another nitro and came to the hospital. Has had some shortness of breath since yesterday, has a cough that is chronic and chronic leg swelling. Just not feeling well overall though chest pain is down to 1 or 2 at present. Denies any other acute complaints PFSH Medical History Acute sinusitis, unspecified Asthma Atherosclerosis of qu[place] coronary artery of qu[place] heart without angina pectoris Chronic obstructive pulmonary disease (COPD) Cluster headache Community acquired pneumonia COPD (chronic obstructive pulmonary disease) Coronary artery disease Diabetes Essential hypertension Headache History of non-ST elevation myocardial infarction (NSTEMI) (11/22/20) Hyperlipidemia Insulin dependent diabetes mellitus Ischemic cardiomyopathy Left shoulder pain Migraine Myocardial infarct Nicotine dependence Non-ST elevation NE (NSTEMI) Obesity Obesity (BMI 30.0-34.9) Smoker Home Medications albuterol sulfate 90 mcg/actuation aerosol inhaler 2 puff inhalation 4X/DAY PRN Shortness Of Breath 04/27/22 [History Last Taken 04/27/22] aspirin 81 mg chewable tablet 81 mg PO DAILY heart health 04/27/22 [History Last Taken 04/27/22] atorvastatin 80 mg tablet 80 mg PO QHS cholesterol 04/27/22 [History Last Taken 04/26/22] loratadine 10 mg tablet 10 mg PO DAILY PRN allergies 06/26/22 [History Last Taken Unknown] isosorbide mononitrate 60 mg tablet,extended release 24 hr See Rx Instructions .Route .COMPLEX #60 TABLETS 04/02/23 [Rx Last Taken Unknown] insulin lispro 200 unit/mL (3 mL) subcutaneous pen (Humalog KwikPen U-200 Insulin) See Rx Instructions .Route .COMPLEX #19 mL 04/12/23 [Rx Last Taken Unknown] carvedilol 25 mg tablet 25 mg PO BIDCM #180 tabs 04/24/23 [Rx Last Taken Unknown] clonidine HCl 0.1 mg tablet 0.1 mg PO BID #180 tabs 04/24/23 [Rx Last Taken Unknown] clopidogrel 75 mg tablet See Rx Instructions .Route .COMPLEX #90 TABLETS 05/28/23 [Rx Last Taken Unknown] amlodipine 10 mg tablet 10 mg PO DAILY #90 tabs 06/25/23 [Rx Last Taken Unknown] insulin degludec 200 unit/mL (3 mL) subcutaneous pen (Tresiba FlexTouch U-200 insulin) 50 unit subcut QHS 11/21/23 [History Last Taken Unknown] lisinopril 20 mg tablet 20 mg PO BID blood pressure #180 tabs 11/26/23 [Rx Last Taken Unknown] ProAir RespiClick 90 mcg/actuation breath activated (albuterol sulfate) See Rx Instructions inhalation PRN PRN Bronchodilation #1 ea 12/12/23 [Rx Last Taken Unknown] nitroglycerin 0.4 mg sublingual tablet See Rx Instructions .Route .COMPLEX #25 tabs 12/14/23 [Rx Last Taken Unknown] ranolazine 1,000 mg tablet,extended release,12 hr 1,000 mg PO BID #180 tabs 12/18/23 [Rx Last Taken Unknown] Allergy/AdvReac Type Severity Reaction Status Date / Time amoxicillin trihydrate Allergy Rash Verified 12/06/23 15:11 [From Augmentin] potassium clavulanate Allergy Rash Verified 12/06/23 15:11 [From Augmentin] codeine AdvReac Nausea Verified 12/06/23 15:11 Family History Sister Myocardial infarction, Onset Age: 41 Diabetes Mother COPD (chronic obstructive pulmonary disease) Asthma Rheumatoid arthritis CVA (cerebral vascular accident) Hypertension Grandmother Diabetes Surgical History History of appendectomy History of coronary artery stent placement (11/18/21) History of hernia repair (2008) History of neck surgery History of umbilical hernia repair (1971) Social History Smoking Status: Current every day smoker tobacco type: cigarettes Tobacco: How many years used: 20 Electronic Cigarette Use: not used second hand exposure: Yes alcohol intake: current alcohol intake frequency: 0-2 drinks per day Alcohol type: beer substance use type: does not use caffeine: Yes Type: carbonated beverages Number of servings: 2 and tea Number of servings: 6 what type of physical activity do you participate in: none ROS ROS Narrative General: Denies fever/chills HENT: Some chronic headaches, denies stuffy nose, denies sore throat EYES: Denies changes in vision Resp: Chronic cough, shortness of breath today Cardiac: Substernal chest pain today GI: Denies abdominal pain, denies changes in bowel, denies nausea/vomiting : Denies changes in urination Extremity: Some chronic swelling in extremities MSK: Denies weakness Neuro: Denies any numbness/tingling Heme: Denies any bleeding or bruising Skin: Denies rashes Psychiatric: No complaints voiced Vital Signs Vital Signs Vital Signs: 12/24/23 12:19 12/24/23 12:50 12/24/23 12:50 Temperature 97.6 F L Temperature Source Temporal Pulse Rate Respiratory Rate Respiratory Effort Normal Blood Pressure Blood Pressure Mean Pulse Ox 93 Oxygen Delivery Method Room Air 12/24/23 12:40 12/24/23 13:08 12/24/23 14:00 Temperature Temperature Source Pulse Rate 100 94 Respiratory Rate 16 17 Respiratory Effort Blood Pressure 202/110 H 197/115 H 210/119 H Blood Pressure Mean 140 142 149 Pulse Ox 98 94 Oxygen Delivery Method Room Air Room Air 12/24/23 14:56 Temperature Temperature Source Pulse Rate 93 Respiratory Rate Respiratory Effort Blood Pressure 204/123 H Blood Pressure Mean 150 Pulse Ox Oxygen Delivery Method Physical Exam Narrative General: Alert, oriented, no apparent distress HEENT: Atraumatic, normocephalic Eyes: Anicteric, normal conjunctiva, extraocular movements grossly intact Neck: Supple Respiratory: Clear to auscultation bilaterally, normal respiratory effort Cardiovascular: Regular rate and rhythm GI: Soft, nontender, nondistended Extremities: No edema Musculoskeletal: Moving all extremities Neuro: No overt focal neurological deficits Skin: No rashes appreciated Psych: Cooperative Results Lab / Micro Data 12/24/23 12:20 12/24/23 12:20 Labs: Laboratory Results - last 24 hr 12/24/23 12:20: WBC 12.0 H, RBC 5.82, Hgb 17.3 H, Hct 51.4, MCV 88.3, MCH 29.7, MCHC 33.7, RDW Std Deviation 43.1, RDW Coeff of Narcisa 13.5, Plt Count 274, MPV 10.9, Immature Gran % (Auto) 0.900, Neut % (Auto) 67.1, Lymph % (Auto) 20.4, [place] % (Auto) 10.0, Eos % (Auto) 0.9, Baso % (Auto) 0.7, Absolute Neuts (auto) 8.1 H, Absolute Lymphs (auto) 2.44, Nucleated RBC % 0, PT 12.0, INR 0.9, APTT 24.7, D-Dimer Quant (PE/DVT) 0.47, Sodium 141, Potassium 3.6, Chloride 104, Carbon Dioxide 28.0, Anion Gap 9, BUN 14, Creatinine 1.13, Est GFR (MDRD) Af Amer 88, Est GFR (MDRD) Non-Af 72, BUN/Creatinine Ratio 12.4, Glucose 286 H, Calcium 9.8, Troponin I High Sens 300 H*, B-Natriuretic Peptide 103.6 H Imaging Radiology Impression Chest X-Ray 12/24/23 12:50 IMPRESSION: Borderline cardiomegaly. The lungs are clear. Electronically Signed: Jin Woodall MD at 13:13 EST Reading Location ID and State: [address] [place] [address] , Service support , Assessment & Plan Assessment/Plan (1) Elevated troponin: (2) Hypertensive urgency: (3) Nicotine dependence: QUALIFIERS: Nicotine product type: cigarettes Substance use status: uncomplicated Qualified Code(s): F17.210 - Nicotine dependence, cigarettes, uncomplicated (4) History of coronary artery stent placement: (5) Essential hypertension: (6) COPD (chronic obstructive pulmonary disease): QUALIFIERS: COPD type: unspecified COPD Qualified Code(s): J44.9 - Chronic obstructive pulmonary disease, unspecified PLAN: Plan # Elevated troponin -Concern for NSTEMI given sx, elevated trop, and history versus hypertensive emergency given significant elevation in blood pressure -Initial troponin 300, will trend -EKG with no significant changes since EKG November 21, 2023 -Admit to telemetry -Discussed with cardiology, heparin drip, nitro drip -Asa, statin -Echocardiogram, last echo in 2020 with EF 50 to 55% with moderate concentric left ventricular hypertrophy and grade 1 diastolic dysfunction -Cardiology consult -Lipid panel -Will continue Ranexa and Imdur -Heart healthy diet # Hypertensive urgency versus emergency -Initial blood pressure 202/110 -Repeat 197/115 when trending back up -Unclear if elevated blood pressure causing chest pain and elevated troponin i.e. hypertensive emergency or if blood pressure elevated because patient havingchest pain -Continue home blood pressure medications once med rec confirmed -Discussed with cardiology, starting nitro drip, if this does not get BP under control will give a dose of clonidine -May need outpatient evaluation for secondary causes of hypertension given multiple medications with persistent elevated blood pressure # History of coronary artery disease -With 7 stents -As above # COPD -Continue present management -Albuterol as needed #Type 2 diabetes mellitus -Glucose checks and sliding scale insulin -Will check A1c -Continue long-acting insulin, patient to be n.p.o. at midnight so we will continue but decrease the dose #Tobacco use -Advise cessation -Nicotine replacement available if desired DVT ppx: hep gtt Charges/Coding Visit Charges Inpatient E&M: 65379 Init Hosp L2 12/24/23 4640 <Electronically signed by Mary Lewis MD> Cosigner Signature (if applicable): CC: Dr. Beka Bowie MD; Dr. Mary Lewis MD~ Signed [facility] Work Phone: [phone] 774-676302-05-2024 Discharge summary Author Pollo Bond [facility] December 24, 2023 3:00pm Note Date/Time December 24, 2023 1 2:40pm [facility] Medical Records Department [address] [place] [address] Emergency Department Summary 12/24/23 MR#: [id number] Acct: [id number] Name: LATONYA ELDER Rep #:[id number] : 1970 53 From: Pollo Bond MD PCP: Dr. Beka Bowie MD Status:R EG ER Location: ED HPI History of Present Illness Chief Complaint: Chest Pain Narrative Narrative: 53-year-old male, presents with his because of chest pain that has been ongoing for the last month, but worse today. He has past medical history of hypertension, coronary artery disease with 7 stents. He states that he continues to smoke a pack a day but is down from 2 packs a day. Additionally, he had a stress test few weeks ago, which was negative reportedly and they changed his medications. He states that while he has been having vomiting everymorning that improves over time, today he had chest pain and left arm pain, morelike a pressure sensation or even muscle burning. He vomited twice without any blood in his emesis. He denies any diaphoresis. He states he took a nitroglycerin, then took another 1 perhaps an hour later. He went to lay down but his chest pain got worse. When he got up, he took another nitroglycerin andcame to the emergency department. He denies any leg swelling. No tearing sensation in his back, no exacerbating or alleviating factors. PFSH PFSH Medical History Acute sinusitis, unspecified Asthma Atherosclerosis of [place] coronary artery of [place] heart without angina pectoris Chronic obstructive pulmonary disease (COPD) Cluster headache Community acquired pneumonia COPD (chronic obstructive pulmonary disease) Coronary artery disease Diabetes Essential hypertension Headache History of non-ST elevation myocardial infarction (NSTEMI) (11/22/20) Hyperlipidemia Insulin dependent diabetes mellitus Ischemic cardiomyopathy Left shoulder pain Migraine Myocardial infarct Nicotine dependence Non-ST elevation NE (NSTEMI) Obesity Obesity (BMI 30.0-34.9) Smoker Home Medications albuterol sulfate 90 mcg/actuation aerosol inhaler 2 puff inhalation 4X/DAY PRN Shortness Of Breath 04/27/22 [History Last Taken 04/27/22] aspirin 81 mg chewable tablet 81 mg PO DAILY heart health 04/27/22 [History Last Taken 04/27/22] atorvastatin 80 mg tablet 80 mg PO QHS cholesterol 04/27/22 [History Last Taken 04/26/22] loratadine 10 mg tablet 10 mg PO DAILY PRN allergies 06/26/22 [History Last Taken Unknown] isosorbide mononitrate 60 mg tablet,extended release 24 hr See Rx Instructions .Route .COMPLEX #60 TABLETS 04/02/23 [Rx Last Taken Unknown] insulin lispro 200 unit/mL (3 mL) subcutaneous pen (Humalog KwikPen U-200 Insulin) See Rx Instructions .Route .COMPLEX #19 mL 04/12/23 [Rx Last Taken Unknown] carvedilol 25 mg tablet 25 mg PO BIDCM #180 tabs 04/24/23 [Rx Last Taken Unknown] clonidine HCl 0.1 mg tablet 0.1 mg PO BID #180 tabs 04/24/23 [Rx Last Taken Unknown] clopidogrel 75 mg tablet See Rx Instructions .Route .COMPLEX #90 TABLETS 05/28/23 [Rx Last Taken Unknown] amlodipine 10 mg tablet 10 mg PO DAILY #90 tabs 06/25/23 [Rx Last Taken Unknown] insulin degludec 200 unit/mL (3 mL) subcutaneous pen (Tresiba FlexTouch U-200 insulin) 50 unit subcut QHS 11/21/23 [History Last Taken Unknown] lisinopril 20 mg tablet 20 mg PO BID blood pressure #180 tabs 11/26/23 [Rx Last Taken Unknown] ProAir RespiClick 90 mcg/actuation breath activated (albuterol sulfate) See Rx Instructions inhalation PRN PRN Bronchodilation #1 ea 12/12/23 [Rx Last Taken Unknown] nitroglycerin 0.4 mg sublingual tablet See Rx Instructions .Route .COMPLEX #25 tabs 12/14/23 [Rx Last Taken Unknown] ranolazine 1,000 mg tablet,extended release,12 hr 1,000 mg PO BID #180 tabs 12/18/23 [Rx Last Taken Unknown] Allergy/AdvReac Type Severity Reaction Status Date / Time amoxicillin trihydrate Allergy Rash Verified 12/06/23 15:11 [From Augmentin] potassium clavulanate Allergy Rash Verified 12/06/23 15:11 [From Augmentin] codeine AdvReac Nausea Verified 12/06/23 15:11 Family History Sister Myocardial infarction, Onset Age: 41 Diabetes Mother COPD (chronic obstructive pulmonary disease) Asthma Rheumatoid arthritis CVA (cerebral vascular accident) Hypertension Grandmother Diabetes Surgical History History of appendectomy History of coronary artery stent placement (11/18/21) History of hernia repair (2008) History of neck surgery History of umbilical hernia repair (1971) Social History Smoking Status: Current every day smoker tobacco type: cigarettes Tobacco: How many years used: 20 Electronic Cigarette Use: not used second hand exposure: Yes alcohol intake: current alcohol intake frequency: 0-2 drinks per day Alcohol type: beer substance use type: does not use caffeine: Yes Type: carbonated beverages Number of servings: 2 and tea Number of servings: 6 what type of physical activity do you participate in: none ROS ROS ED ROS Narrative Constitutional: No fever, no chills. HEENT: No sore throat. No neck pain. No loss of vision. No rhinorrhea. Cardiovascular: Positive left arm and chest pain. No palpitations. No pedal edema. Respiratory: No cough, positive shortness of breath. Abdominal: No abdominal pain. 2 episodes of nausea and vomiting, nonbloody, today. Genitourinary: No dysuria. No hematuria. Musculoskeletal: No myalgias. No arthralgias. Neurologic: No headaches. No dizziness. No lightheadedness. Skin: No rash. No change in color. Psychiatric: No depression. No anxiety. EXAM Physical Exam Narrative Exam Narrative: Afebrile. Vital signs noted. HEENT: Normocephalic. Atraumatic. PERRL, EOMI. Neck soft and supple. No pointtenderness or step off. Cardiovascular: Regular rate and rhythm. No murmurs, rubs, or gallops appreciated. Respiratory: No tachypnea. Lungs clear to auscultation bilaterally. Gastrointestinal: Abdomen soft, nontender, with normoactive bowel sounds. No rebound or guarding. Neurological: Awake. Alert. Nonfocal, nonlateralizing. Skin: No rash. Normal color. No pallor. Musculoskeletal: No pedal edema. Full range of motion extremities. Const Vital Signs: 12/24/23 12:19 12/24/23 12:50 12/24/23 12:50 Temperature 97.6 F L Temperature Source Temporal Pulse Rate Respiratory Rate Respiratory Effort Normal Blood Pressure Blood Pressure Mean Pulse Ox 93 Oxygen Delivery Method Room Air 12/24/23 12:40 12/24/23 13:08 12/24/23 14:00 Temperature Temperature Source Pulse Rate 100 94 Respiratory Rate 16 17 Respiratory Effort Blood Pressure 202/110 H 197/115 H 210/119 H Blood Pressure Mean 140 142 149 Pulse Ox 98 94 Oxygen Delivery Method Room Air Room Air Heart Score History: Moderately Suspicious ECG: Normal Age: >45 - <65 years Risk Factors: >/= 3 Risk Factors or History of CAD Score: 4 MDM MDM MDM Narrative Medical decision making narrative: In the differential diagnosis is ACS versus pulmonary embolism versus pneumothorax versus pneumonia. The history and physical does not necessarily support the latter 2 diagnoses. I have low suspicion for aortic dissection because he does not have tearing sensation in his back and it is more typical ofhis previous problems with chest pain. Smoking cessation was discussed. EKG was obtained and interpreted by myself independently as sinus tachycardia at 105bpm without ectopy or acute ST changes. No STEMI. No significant change exceptfor the tachycardia when compared to an EKG dated November 21, 2023. In review of his laboratory work, he has an elevated white count of 12.0 which Ithink is nonspecific, hemoglobin slightly hemoconcentrated at 17.3 with hematocrit 51.4, platelet count normal at 274. INR 0.9 with a PTT 24.7, D-dimer0.47. I do not feel that he needs a CTA of the chest. Sodium is normal at 141 with potassium 3.6, chloride 104 with BUN of 14 and creatinine 1.13. While glucose is elevated to 86, he has a normal anion gap of 9. BNP is slightly elevated above 100. Of significance, his initial troponin is 300. While they have been elevated in the past, they were last taken last month and were normal in the 40s. Patient continues to have elevated blood pressure in the 190s systolic even after hydralazine. I did review his prior outpatient records and he had a stress test that was -1 to 2 weeks ago. As he has continued elevated blood pressure, he may be having more of a type II NSTEMI/hypertensive emergency. He was started on a nitroglycerin drip and heparin drip after discussion with the chaser apprentice, Dr. Harvey Murphy. Additionally, I discussedthe patient with Dr. Mary Lewis for admission to the ICU. Critical care time 31 minutes. Disposition is admitted in guarded condition. History & Record Review Discussion w/independent historian: Patient and Family Additional record(s) reviewed:: Prior outpatient record, Prior ED visit and Prior labs Lab Data Attestation: I reviewed the patient's lab results. Labs: Laboratory Results - last 24 hr 12/24/23 12:20 WBC 12.0 H RBC 5.82 Hgb 17.3 H Hct 51.4 MCV 88.3 MCH 29.7 MCHC 33.7 RDW Std Deviation 43.1 RDW Coeff of Narcisa 13.5 Plt Count 274 MPV 10.9 Immature Gran % (Auto) 0.900 Neut % (Auto) 67.1 Lymph % (Auto) 20.4 [place] % (Auto) 10.0 Eos % (Auto) 0.9 Baso % (Auto) 0.7 Absolute Neuts (auto) 8.1 H Absolute Lymphs (auto) 2.44 Nucleated RBC % 0 PT 12.0 INR 0.9 APTT 24.7 D-Dimer Quant (PE/DVT) 0.47 Sodium 141 Potassium 3.6 Chloride 104 Carbon Dioxide 28.0 Anion Gap 9 BUN 14 Creatinine 1.13 Est GFR (MDRD) Af Amer 88 Est GFR (MDRD) Non-Af 72 BUN/Creatinine Ratio 12.4 Glucose 286 H Calcium 9.8 Troponin I High Sens 300 H* B-Natriuretic Peptide 103.6 H Radiography Diagnostic Testing: Clinical Impression(s) from Imaging Studies Chest X-Ray 12/24/23 12:50 IMPRESSION: Borderline cardiomegaly. The lungs are clear. Electronically Signed: Jin Woodall MD at 13:13 EST , Management Discussion w/another healthcare provider: Hospitalist (Dr. Mary Lewis) and Tearoom Host (Dr. Harvey Murphy) Critical Care Time Critical care time (excluding procedures): 30-74 minutes (31), Including time spent:, Discussing w/Patient &/or Family/Oil Pipe Inspector Helper, Discussing w/Consultants, Arranging Admission or Transfer and Performing Direct Patient Care at Bedside Discharge Plan Dx/Rx/DC Orders Clinical Impression: Nicotine dependence, Hypertensive emergency, Non-ST elevation NE (NSTEMI), Chest pain Disposition Disposition: Acute Care Hospital [facility] What to do if you have Problems For any increased pain, shortness of breath, bleeding, nausea or vomiting, chestpain, or any unexpected problems, contact your Primary Care Provider. Call [facility] ([phone]) or report to the closest Emergency Room. Call 911 if necessary. 12/24/23 1500 <Electronically signed by Pollo Bond MD> Cosigner Signature (if applicable): CC: Dr. Beka Bowie MD ~ Signed [facility] Work Phone: 1(228) 698-676501-03-2024 Discharge summary Author Luis York [facility] November 21, 2023 10:11am Note Date/Time November 21, 2023 7: 12am [facility] Medical Records Department [address] [place] [address] Emergency Department Summary 11/21/23 MR#: [id number] Acct: [id number] Name: LATONYA ELDER Rep #:[id number] : 1970 53 From: Luis York MD PCP: Dr. Beka Bowie MD Status:R EG ER Location: ED HPI History of Present Illness Chief Complaint: Chest Pain Informant: patient and spouse/S.O. Narrative Narrative: Patient presents with chest pain. Patient was at work for several hours. He started to get a sharp pain in the mid sternum little bit to the right side. No radiation. But he was short of breath nauseated he said he broke out in a sweat. This is typical of his heart attack pain. He has had multiple stents. He is taking all his since including his aspirin. He is also diabetic hypertensive. He took 1 nitro and it did not help. He took a second and then a third and then the third seem to help. When he took a second nitro he also got what he describes as a pulling sensation thatwas pulling him to the left. He had that here and I evaluated him at the time. He states he has been having that for about a year. He has had extensive evaluation and seen multiple neurologist and they cannot find the source of this. No indication that this is stroke. When it first started about a year ago it would happen almost daily basis. Now it is less frequent. PFSH PFSH Medical History Acute sinusitis, unspecified Asthma Atherosclerosis of [place] coronary artery of [place] heart without angina pectoris Chronic obstructive pulmonary disease (COPD) Cluster headache Community acquired pneumonia COPD (chronic obstructive pulmonary disease) Coronary artery disease Diabetes Essential hypertension Headache History of non-ST elevation myocardial infarction (NSTEMI) (11/22/20) Hyperlipidemia Insulin dependent diabetes mellitus Ischemic cardiomyopathy Left shoulder pain Migraine Myocardial infarct Nicotine dependence Non-ST elevation NE (NSTEMI) Obesity Obesity (BMI 30.0-34.9) Smoker Home Medications albuterol sulfate 90 mcg/actuation breath activated powder inhaler (ProAir RespiClick) 2 inh inhalation PRN PRN Bronchodilation 11/18/21 [History Last Taken 04/27/22] albuterol sulfate 90 mcg/actuation aerosol inhaler 2 puff inhalation 4X/DAY PRN Shortness Of Breath 04/27/22 [History Last Taken 04/27/22] aspirin 81 mg chewable tablet 81 mg PO DAILY heart health 04/27/22 [History Last Taken 04/27/22] atorvastatin 80 mg tablet 80 mg PO QHS cholesterol 04/27/22 [History Last Taken 04/26/22] lisinopril 20 mg tablet 20 mg PO BID blood pressure 04/27/22 [History Last Taken 04/27/22] loratadine 10 mg tablet 10 mg PO DAILY PRN allergies 06/26/22 [History Last Taken Unknown] ranolazine 500 mg tablet,extended release,12 hr (Ranexa) 500 mg PO BID #60 tabs 07/10/22 [Rx Last Taken Unknown] isosorbide mononitrate 60 mg tablet,extended release 24 hr See Rx Instructions .Route .COMPLEX #60 TABLETS 04/02/23 [Rx Last Taken Unknown] insulin lispro 200 unit/mL (3 mL) subcutaneous pen (Humalog KwikPen U-200 Insulin) See Rx Instructions .Route .COMPLEX #19 mL 04/12/23 [Rx Last Taken Unknown] carvedilol 25 mg tablet 25 mg PO BIDCM #180 tabs 04/24/23 [Rx Last Taken Unknown] clonidine HCl 0.1 mg tablet 0.1 mg PO BID #180 tabs 04/24/23 [Rx Last Taken Unknown] clopidogrel 75 mg tablet See Rx Instructions .Route .COMPLEX #90 TABLETS 05/28/23 [Rx Last Taken Unknown] amlodipine 10 mg tablet 10 mg PO DAILY #90 tabs 06/25/23 [Rx Last Taken Unknown] nitroglycerin 0.4 mg sublingual tablet See Rx Instructions .Route .COMPLEX #25 tabs 08/20/23 [Rx Last Taken Unknown] insulin degludec 200 unit/mL (3 mL) subcutaneous pen (Tresiba FlexTouch U-200 insulin) 50 unit subcut QHS 11/21/23 [History Last Taken Unknown] Allergy/AdvReac Type Severity Reaction Status Date / Time amoxicillin trihydrate Allergy Rash Verified 11/21/23 06:41 [From Augmentin] potassium clavulanate Allergy Rash Verified 11/21/23 06:41 [From Augmentin] codeine AdvReac Nausea Verified 11/21/23 06:41 Family History Sister Myocardial infarction, Onset Age: 41 Diabetes Mother COPD (chronic obstructive pulmonary disease) Asthma Rheumatoid arthritis CVA (cerebral vascular accident) Hypertension Grandmother Diabetes Surgical History History of appendectomy History of coronary artery stent placement (11/18/21) History of hernia repair (2008) History of neck surgery History of umbilical hernia repair (1971) Social History Smoking Status: Current every day smoker tobacco type: cigarettes Tobacco: How many years used: 20 Electronic Cigarette Use: not used second hand exposure: Yes alcohol intake: current alcohol intake frequency: 0-2 drinks per day Alcohol type: beer substance use type: does not use caffeine: Yes Type: carbonated beverages Number of servings: 2 and tea Number of servings: 6 what type of physical activity do you participate in: none ROS ROS ED ROS Narrative A complete review of systems was performed and is negative except as documented in the history of present illness. Some specific details below. Constitutional: No recent fevers or chills. He was feeling normal before this all started at 6 AM. EYE: No discharge, visual complaints, or pain. He did not have a visual field cut ENT: No difficulty swallowing. No swelling. No pain. No reflux symptoms. CV: See history of present illness. Respiratory: See history of present illness. Not short of breath now. GI: No abdominal pain. He had some nausea but no vomiting diarrhea. No blood instool. : No frequency dysuria or hematuria. Musculoskeletal: No recent trauma. No pains. No swelling. Skin: No rash. Nondiaphoretic. Neuro: Pulling sensation of his body being pulled to the left. Endocrine: No polyuria or polydipsia. EXAM Physical Exam Narrative Exam Narrative: CONSTITUTIONAL: Patient is nontoxic in appearance. The patient looks comfortable. Work of breathing looks normal. HEENT: No notable trauma. Mucous membranes moist. No diaphoresis on brow. EYES: No conjunctival injection. No proptosis. NECK:No JVD. No stridor. CARDIOVASCULAR: Regular rate. Regular rhythm. No notable murmur. No JVD. RESPIRATORY: No respiratory distress. Breathing is unlabored. No wheezes. No rhonchi. No rales. No pain with a deep breath. No chest wall tenderness. GASTROINTESTINAL: Somewhat obese but not distended. Bowel sounds are normal. No tenderness. No guarding. No rebound. No palpable mass. No bruit is heard. GENITOURINARY: No tenderness over the bladder. No CVA tenderness. MUSCULOSKELETAL: Atraumatic. No peripheral edema. NEUROLOGICAL: Patient is alert and appropriate. I was called into the room as Icame into the facility. He had this sense of pulling to the left. When he was lifting his left arm it would drift but to the left side not drift down. His body was laying back in the bed but it was sliding to the left. But when I had him hold up both arms there was no vertical drip. His emergency communications dispatcher were normal. Facial structure was normal. Sensation is normal. Leg lift is normal. There is no indication of deficit during this episode. SKIN: No noted rashes. No diaphoresis at this time. PSYCHIATRIC: Patient is calm. Mood is appropriate. Const Vital Signs: 11/21/23 06:38 11/21/23 06:40 11/21/23 06:47 Temperature 97 F L Temperature Source Temporal Pulse Rate 75 Respiratory Rate 15 Respiratory Effort Normal Blood Pressure 135/74 H Blood Pressure Mean 94 Pulse Ox 93 Oxygen Delivery Method Room Air 11/21/23 09:00 11/21/23 09:57 Temperature Temperature Source Pulse Rate 64 65 Respiratory Rate 18 18 Respiratory Effort Blood Pressure 140/87 H 136/76 H Blood Pressure Mean 104 96 Pulse Ox 96 94 Oxygen Delivery Method Room Air Room Air Heart Score History: Moderately Suspicious ECG: Nonspecific Repolarization Age: >45 - <65 years Risk Factors: >/= 3 Risk Factors or History of CAD Troponin: </= Normal Limit Score: 5 MDM MDM MDM Narrative Medical decision making narrative: My independent interpretation of the patient's CT T of his head shows no acute process and final reading is similar. My independent interpretation of the patient's single view chest x-ray shows some cardiomegaly but this is an AP film. No acute process. Final reading is pending. Patient CBC is overall normal. Patient's electrolytes mild glucose elevation 6 2. No other marked abnormalities. Patient's first troponin is 45. This was drawn likely an hour after the onset of his symptoms. My concern is that this patient has well-known heart disease. He is a smoker. He states he is taking all his meds now although I guess in the past he has had issues with this. He has a heart score of 5. He did have a heart cath about a year and a half ago. His last stents were a little over 2 years ago. I went back and talk with the patient. My plan was to admit this patient because he does have higher risk. He states there is no way he is staying in the hospital. The pulling to the left is chronic ongoing and it has been extensively evaluated. He states the chest pain is gone. He states he does notwant to stay in the hospital he will follow-up with his doctor. I talked to himand explained the timing of his troponin. I was able to use the discussion and also his to help and at this point he is agreeing to stay for at least a repeat troponin so we can add a little margin of safety. We also agree that he will be allowed to eat breakfast. We did this bargaining to keep him here to atleast recheck the troponin. If that is elevated I hopefully will have a lot more data that we will convince him to stay. His repeat opponent did come back lower. I talked with the patient again. He does not want to stay hospital. He was encouraged to have a low threshold to return. He should call his chaser apprentice, Dr. Flores for close follow-up. Make sure he keeps taking all his meds as prescribed. Lab Data Attestation: I reviewed the patient's lab results. Labs: Laboratory Results - last 24 hr 11/21/23 11/21/23 06:44 08:45 WBC 10.7 RBC 4.94 Hgb 15.0 Hct 43.6 MCV 88.3 MCH 30.4 MCHC 34.4 RDW Std Deviation 43.4 RDW Coeff of Narcisa 13.3 Plt Count 260 MPV 10.0 Immature Gran % (Auto) 0.500 Neut % (Auto) 62.0 Lymph % (Auto) 25.2 [place] % (Auto) 9.8 Eos % (Auto) 2.0 Baso % (Auto) 0.5 Absolute Neuts (auto) 6.6 Absolute Lymphs (auto) 2.69 Nucleated RBC % 0 Sodium 139 Potassium 3.8 Chloride 107 Carbon Dioxide 28.0 Anion Gap 4 L BUN 19 H Creatinine 1.14 Estim Creat Clear Calc 73.33 Est GFR (MDRD) Af Amer 87 Est GFR (MDRD) Non-Af 72 BUN/Creatinine Ratio 16.7 Glucose 162 H Calcium 9.4 Troponin I High Sens 45 40 Radiography Diagnostic Testing: Clinical Impression(s) from Imaging Studies Chest X-Ray 11/21/23 06:47 IMPRESSION: Borderline cardiomegaly. Mild left pleural effusion with bibasilar atelectasis or inflammation. Electronically Signed: Mandy Ansari MD at 8:27 EST , Brain CT 11/21/23 07:04 IMPRESSION: undefined Discharge Plan Triage Chief Complaint: Chest Pain ED Provider: Luis York Dx/Rx/DC Orders Clinical Impression: Left against medical advice, History of coronary artery disease, Chest pain Instructions: ED Chest Pain, Uncertain Cause Prescriptions: No Action ranolazine [Ranexa] 500 mg tablet extended release 12 hr 500 mg PO BID Qty: 60 11RF ProAir RespiClick 90 mcg/actuation aerosol powdr breath activated 2 inh INHALATION PRN PRN (Reason: Bronchodilation) albuterol sulfate 90 mcg/actuation HFA aerosol inhaler 2 puff INHALATION 4X/DAY PRN (Reason: Shortness Of Breath) Patient Comments: inhale 2 puffs INTO THE LUNGS UP TO FOUR TIMES A DAY NEEDED atorvastatin 80 mg tablet 80 mg PO QHS lisinopril 20 mg tablet 20 mg PO BID aspirin 81 MG tablet,chewable 81 mg PO DAILY loratadine 10 mg tablet 10 mg PO DAILY PRN (Reason: allergies) insulin degludec [Tresiba FlexTouch U-200] 200 unit/mL (3 mL) insulin pen 50 unit SUBCUT QHS Patient Comments: inject 50 units subcutaneously at bedtime for diabetes isosorbide mononitrate 60 mg tablet extended release 24 hr See Rx Instructions .ROUTE .COMPLEX Qty: 60 12RF Dose Instruction: TAKE 1 TABLET BY MOUTH TWICE A DAY FOR HEART. Rx Instructions: TAKE 1 TABLET BY MOUTH TWICE A DAY FOR HEART. Humalog KwikPen Insulin 200 unit/mL (3 mL) insulin pen See Rx Instructions .ROUTE .COMPLEX Qty: 19 0RF Dose Instruction: inject 14 units subcutaneously three times a day (SEE PROTOCOL) Rx Instructions: inject 14 units subcutaneously three times a day (SEE PROTOCOL) carvedilol 25 mg tablet 25 mg PO BIDCM Qty: 180 3RF clonidine HCl 0.1 mg tablet 0.1 mg PO BID Qty: 180 3RF clopidogrel 75 mg tablet See Rx Instructions .ROUTE .COMPLEX Qty: 90 3RF Dose Instruction: take 1 tablet by mouth once daily Rx Instructions: take 1 tablet by mouth once daily amlodipine 10 mg tablet 10 mg PO DAILY Qty: 90 3RF nitroglycerin 0.4 mg tablet, sublingual See Rx Instructions .ROUTE .COMPLEX Qty: 25 3RF Dose Instruction: place 1 tablet under the tongue if needed every 5 minutes for chest pain for 3 doses IF NO RELIEF AFTER THIRD DOSE CALL 911. Rx Instructions: place 1 tablet under the tongue if needed every 5 minutes for chest pain for 3 doses IF NO RELIEF AFTER THIRD DOSE CALL 911. Primary Care Provider: Beka Bowie Referrals: Eric Flores MD [Med Staff - Active Staff] - Beka Bowie MD [Primary Care Provider] - Disposition Disposition: Home, Self Care What to do if you have Problems For any increased pain, shortness of breath, bleeding, nausea or vomiting, chestpain, or any unexpected problems, contact your Primary Care Provider. Call [facility] ([phone]) or report to the closest Emergency Room. Call 911 if necessary. 11/21/23 1011 <Electronically signed by Luis York MD> Cosigner Signature (if applicable): CC: Dr. Beka Bowie MD ~ Signed [facility] Work Phone: Consult note Author Harvey Murphy [facility] December 24, 2023 3:20pm Note Date/Time December 24, 2023 2 :56pm [facility] Medical Records Department [address] [place] [address] Consultation - Cardiology 12/24/23 1454 MR#: [id number] Acct: [id number] Name: LATONYA ELDER Rep #:[id number] : 1970 53 From: Harvey Murphy MD PCP: Dr. Beka Bowie MD Status:A DM IN Location: [place] [id number] Assessment & Plan Assessment/Plan (1) Non-ST elevation NE (NSTEMI): PLAN: The patient's symptoms are consistent with a hypertensive emergency. His blood pressures 200-2 20 systolic in the emergency department he has a prior history of similar presentation back in 2021. The patient does have known coronary artery disease, he is diabetic and hypertensive and continues to smoke. Troponins will be trended. The blood pressure will be aggressively treated with IV nitro in addition to as needed clonidine to get his blood pressure down in the 1 50-1 70 systolic range. His baseline blood pressure at his last stresstest was 160 systolic. The patient will be anticoagulated with heparin IV nitroglycerin is instituted and his Plavix and aspirin will be continued. Pending the outcome of his trended troponins we will evaluate him for invasive evaluation of his coronary anatomy in the next 24 hours. (2) Hypertensive emergency: PLAN: Reinstitute the patient's home medical regiment. He currently does not have evidence of renal insufficiency. However he is diabetic and severely hypertensive. Will reinstitute his home oral medical therapy augment that with IV nitroglycerin and as needed p.o. clonidine as indicated. If he does not comeunder control with bedrest and reinstitution of his medical therapy secondary etiologies should be investigated. (3) Chest pain: QUALIFIERS: Chest pain type: chest pain due to myocardial ischemia Ischemic chest pain type: unspecified angina pectoris type Qualified Code(s): I25.9 - Chronic ischemic heart disease, unspecified PLAN: The patient's chest discomfort is consistent with an anginal equivalent hedoes complain of some shortness of breath and he has known coronary disease but he is also having a hypertensive urgency/emergency. (4) History of coronary artery stent placement: PLAN: The patient's secondary risk factors of continue to be aggressively treated with control of his blood pressure his diabetes and his hyperlipidemia. Continue his current atorvastatin 80 mg daily clopidogrel and aspirin. Will also be treated with aggressive treatment of his diabetes and blood pressure. PLAN: Plan 1. IV nitro and as needed clonidine. 2. Continue home medical therapy. 3. Trend troponins and if they continue to accelerate and elevate would consider invasive evaluation in the next 24 hours. 4. Smoking cessation. HPI Consult Data Date of Consult: 12/24/23 HPI Narrative Reason for Consultation: Past pain with positive troponins HPI Narrative: LATONYA ELDER, is a 53 M who presents complaining of chest discomfort that started approximately 1000 hrs. this morning. He took 2 sublingual nitros in sequence with resolution of the chest discomfort. The discomfort recurred at noon and hecalled EMS. He was brought to the emergency department where he presented with significant hypertension and his troponins were elevated. The patient had a recent stress test December 11 2023. The patient went 5 minutes on a treadmill at achieving 81% of age-predicted heart rate. He had a hypertensive response. This nuclear scan revealed an apical infarct with no induced ischemia. Patient reports that his symptoms have a clinical essentially resolved he has some residual soreness but his blood pressure remains over 200 systolic. An IV nitroglycerin drip is being instituted. The patient is also received IV hydralazine. He reports to me that he has taken all of his medications as ordered. The patient also complains of some shortness of breath but denies any PND orthopnea or lower extremity edema. He does report increased mucus production over the last few days but denies any fevers or chills. No one else has been sick in the family and he has not been exposed to any viral illnesses that he is aware of. Patient has a history of a non-ST segment elevation microinfarction November 2016he had a stent placed to the second obtuse marginal branch of the circumflex. He presented in November 2020 with a non-STEMI previously placed stent in the LADwas patent the left circumflex artery had mild in-stent stenosis there was new disease involving the proximal and mid right coronary artery which was treated with stenting. He also was diagnosed with diabetes. In October 2021 who presented to the emergency department with chest discomfort and had a cardiac cath which resulted in drug-eluting stent to the mid LAD he Re-presented in December 2021 with chest discomfort his troponins did not increase and he was discharged home April 2022 he Re-presented to the emergency department with chestpain and a heart cath showed patency of the mid LAD stent OM stent and RCA stents the he had a proximal LAD lesion to the stent which was an intermediate stenosis of 50 to 60% and IFR repeated twice was within normal limits. The patient Re-presented again on June 26, 2022 with chest discomfort and a non-STEMI. His blood pressure was markedly elevated and his medications were adjusted he was not recath. The last time he was seen in the office was July 10, 2022. His EKG shows normal sinus rhythm with nonspecific ST-T wave changes which is similar to an old EKG that was present in the ED. PFSH Medical History Acute sinusitis, unspecified Asthma Atherosclerosis of [place] coronary artery of [place] heart without angina pectoris Chronic obstructive pulmonary disease (COPD) Cluster headache Community acquired pneumonia COPD (chronic obstructive pulmonary disease) Coronary artery disease Diabetes Essential hypertension Headache History of non-ST elevation myocardial infarction (NSTEMI) (11/22/20) Hyperlipidemia Insulin dependent diabetes mellitus Ischemic cardiomyopathy Left shoulder pain Migraine Myocardial infarct Nicotine dependence Non-ST elevation NE (NSTEMI) Obesity Obesity (BMI 30.0-34.9) Smoker Home Medications albuterol sulfate 90 mcg/actuation aerosol inhaler 2 puff inhalation 4X/DAY PRN Shortness Of Breath 04/27/22 [History Last Taken 04/27/22] aspirin 81 mg chewable tablet 81 mg PO DAILY heart health 04/27/22 [History Last Taken 04/27/22] atorvastatin 80 mg tablet 80 mg PO QHS cholesterol 04/27/22 [History Last Taken 04/26/22] loratadine 10 mg tablet 10 mg PO DAILY PRN allergies 06/26/22 [History Last Taken Unknown] isosorbide mononitrate 60 mg tablet,extended release 24 hr See Rx Instructions .Route .COMPLEX #60 TABLETS 04/02/23 [Rx Last Taken Unknown] insulin lispro 200 unit/mL (3 mL) subcutaneous pen (Humalog KwikPen U-200 Insulin) See Rx Instructions .Route .COMPLEX #19 mL 04/12/23 [Rx Last Taken Unknown] carvedilol 25 mg tablet 25 mg PO BIDCM #180 tabs 04/24/23 [Rx Last Taken Unknown] clonidine HCl 0.1 mg tablet 0.1 mg PO BID #180 tabs 04/24/23 [Rx Last Taken Unknown] clopidogrel 75 mg tablet See Rx Instructions .Route .COMPLEX #90 TABLETS 05/28/23 [Rx Last Taken Unknown] amlodipine 10 mg tablet 10 mg PO DAILY #90 tabs 06/25/23 [Rx Last Taken Unknown] insulin degludec 200 unit/mL (3 mL) subcutaneous pen (Tresiba FlexTouch U-200 insulin) 50 unit subcut QHS 11/21/23 [History Last Taken Unknown] lisinopril 20 mg tablet 20 mg PO BID blood pressure #180 tabs 11/26/23 [Rx Last Taken Unknown] ProAir RespiClick 90 mcg/actuation breath activated (albuterol sulfate) See Rx Instructions inhalation PRN PRN Bronchodilation #1 ea 12/12/23 [Rx Last Taken Unknown] nitroglycerin 0.4 mg sublingual tablet See Rx Instructions .Route .COMPLEX #25 tabs 12/14/23 [Rx Last Taken Unknown] ranolazine 1,000 mg tablet,extended release,12 hr 1,000 mg PO BID #180 tabs 12/18/23 [Rx Last Taken Unknown] Allergy/AdvReac Type Severity Reaction Status Date / Time amoxicillin trihydrate Allergy Rash Verified 12/06/23 15:11 [From Augmentin] potassium clavulanate Allergy Rash Verified 12/06/23 15:11 [From Augmentin] codeine AdvReac Nausea Verified 12/06/23 15:11 Family History Sister Myocardial infarction, Onset Age: 41 Diabetes Mother COPD (chronic obstructive pulmonary disease) Asthma Rheumatoid arthritis CVA (cerebral vascular accident) Hypertension Grandmother Diabetes Surgical History History of appendectomy History of coronary artery stent placement (11/18/21) History of hernia repair (2008) History of neck surgery History of umbilical hernia repair (1971) Social History Smoking Status: Current every day smoker tobacco type: cigarettes Tobacco: How many years used: 20 Electronic Cigarette Use: not used second hand exposure: Yes alcohol intake: current alcohol intake frequency: 0-2 drinks per day Alcohol type: beer substance use type: does not use caffeine: Yes Type: carbonated beverages Number of servings: 2 and tea Number of servings: 6 what type of physical activity do you participate in: none ROS Constitutional Constitutional: Reports as per HPI Eyes Eyes: Reports systems reviewed and no addt'l complaints, except as documented ENT HEENT: Reports systems reviewed and no addt'l complaints, except as documented Cardiovascular Cardiovascular: Reports as per HPI Respiratory/Chest Respiratory/Chest: Reports as per HPI Gastrointestinal Gastrointestinal: Reports systems reviewed and no addt'l complaints, except as documented Genitourinary Genitourinary: Reports systems reviewed and no addt'l complaints, except as documented Musculoskeletal Musculoskeletal: Reports systems reviewed and no addt'l complaints, except as documented Integumentary Integumentary: Reports systems reviewed and no addt'l complaints, except as documented Neurologic Neurologic: Reports systems reviewed and no addt'l complaints, except as documented Psychiatric Psychiatric: Reports systems reviewed and no addt'l complaints, except as documented Endocrine Endocrinology: Reports as per HPI Hematologic/Lymphatic Hematologic/Lymphatic: Reports systems reviewed and no addt'l complaints, exceptas documented Allergic/Immunologic Allergic/Immunologic: Reports systems reviewed and no addt'l complaints, except as documented Physical Exam Const oriented x3 HEENT normocephalic Eyes EOMs intact bilaterally Neck no JVD and no carotid bruits Chest inspection of chest normal Resp normal respiratory effort Auscultation: crackles bilateral and localized (Bases) and wheezes expiratory wheezes Cardio regular rate, regular rhythm, S1 normal heart sound, S2 normal heart sound, no murmurs, no rub and no gallops Cardio Narrative: Distant heart tones GI normal to inspection, nondistended, normoactive bowel sounds Extremity no pedal edema Skin no rashes or lesions noted Psych mental status grossly normal Risk Stratification Risk Stratification Applicable: Yes Age >/= 65: No >/= 3 CAD Risk Factors (HTN, HLD, DM, family hx of CAD, or current smoker): Yes Aspirin Use in the Past 7 Days: Yes Severe Angina (>/= episodes in 24 hours): Yes EKG ST Changes >/= 0.5mm: No Positive Cardiac Marker: Yes ESTEPHANIA Risk Stratification Score: 4 ESTEPHANIA % Risk: 20% Risk Charges/Coding Visit Charges Inpatient E&M: 12651 Init Hosp L3 Objective Data Vital Signs: Vital Signs Temp Pulse Resp BP Pulse Ox O2 Del Method 97.6 F L 94 17 210/119 H 94 Room Air 12/24/23 12:19 12/24/23 14:00 12/24/23 14:00 12/24/23 14:00 12/24/23 14:00 12/24/23 14:00 Oxygen Delivery Method Room Air Lab / Micro Data Attestation: I reviewed the patient's lab results. 12/24/23 12:20 12/24/23 12:20 Labs: Laboratory Results - last 24 hr 12/24/23 12:20: WBC 12.0 H, RBC 5.82, Hgb 17.3 H, Hct 51.4, MCV 88.3, MCH 29.7, MCHC 33.7, RDW Std Deviation 43.1, RDW Coeff of Narcisa 13.5, Plt Count 274, MPV 10.9, Immature Gran % (Auto) 0.900, Neut % (Auto) 67.1, Lymph % (Auto) 20.4, [place] % (Auto) 10.0, Eos % (Auto) 0.9, Baso % (Auto) 0.7, Absolute Neuts (auto) 8.1 H, Absolute Lymphs (auto) 2.44, Nucleated RBC % 0, PT 12.0, INR 0.9, APTT 24.7, D-Dimer Quant (PE/DVT) 0.47, Sodium 141, Potassium 3.6, Chloride 104, Carbon Dioxide 28.0, Anion Gap 9, BUN 14, Creatinine 1.13, Est GFR (MDRD) Af Amer 88, Est GFR (MDRD) Non-Af 72, BUN/Creatinine Ratio 12.4, Glucose 286 H, Calcium 9.8, Troponin I High Sens 300 H*, B-Natriuretic Peptide 103.6 H Cardiology Labs/Tests 12/24/23 12:20: WBC 12.0 H, RBC 5.82, Hgb 17.3 H, Hct 51.4, MCV 88.3, MCH 29.7, MCHC 33.7, Plt Count 274, MPV 10.9, Immature Gran % (Auto) 0.900, Neut % (Auto) 67.1, Lymph % (Auto) 20.4, [place] % (Auto) 10.0, Eos % (Auto) 0.9, Baso % (Auto) 0.7, Absolute Neuts (auto) 8.1 H, Nucleated RBC % 0, PT 12.0, INR 0.9, APTT 24.7, D- Dimer Quant (PE/DVT) 0.47, Sodium 141, Potassium 3.6, Chloride 104, Carbon Dioxide 28.0, Anion Gap 9, BUN 14, Creatinine 1.13, Est GFR (MDRD) Af Amer 88, Est GFR (MDRD) Non-Af 72, BUN/Creatinine Ratio 12.4, Glucose 286 H, Calcium 9.8, B-Natriuretic Peptide 103.6 H Rhythm: EKG: ECHO: Stress Test: Cardiac Cath: PCI: CT Surgery: Holter monitor: EPS: PPM: CXR: Chest CT Scan: Radiography Diagnostic Testing: Radiology Impression Chest X-Ray 12/24/23 12:50 IMPRESSION: Borderline cardiomegaly. The lungs are clear. Electronically Signed: Jin Woodall MD at 13:13 EST Reading Location ID and State: [facility] / [place] , Service support , EKG Initial EKG: Attestation: I personally reviewed and interpreted this EKG as follows: Prior EKG tracings: available for review Interpretation: Normal sinus rhythm with nonspecific ST-T wave changes no significant change from prior EKG. 12/24/23 1520 <Electronically signed by Harvey Murphy MD> Cosigner Signature (if applicable): CC: Dr. Beka Bowie MD~ Signed [facility] Work Phone: Discharge summary Author Brennon Juarez [facility] Note Date/Time February 11, 2025 2:3 2pm [facility] Medical Records Department [address] [place] [id number] Discharge Summary 02/11/25 1421 MR#: [id number] Acct: [id number] Name: LATONYA ELDER Rep #:[id number] : 1970 54 From: Brennon Juarez DO PCP: Dr. Beka Bowie MD Status:A DM IN Location: ICU [id number] 1-1 Providers Date of Admission: 02/11/25 Primary Care Physician: Dr. Beka Bowie MD Consultations 02/11/25 00:32 Consult: Tele-Neurology Routine Consulting Provider: [facility] Reason for Consult: Acute Ischemic Stroke/TIA EMERGENT Consult: No MD Notified: Yes Date Notified: 02/11/25 Time Notified: 00:07 Method of Notification: ED Physician Initiated Method of Consult:: Telemedicine Nursing Unit Staff Notify [facility] of Tele-Neurology Consult: Yes Reason For Visit: LVO OF THE A1 SEGMENT OF THE RIGHT ARELY PLUS RIGHT Diagnosis Discharge Diagnosis (1) CVA (cerebral vascular accident): Status: Acute Code(s): I63.9 - Cerebral infarction, unspecified Plan: CTA shows Large vessel occlusion of the A1 segment of the right anterior cerebral artery, with retrograde filling via the anterior communicating artery. Small caliber distal right ARELY. Neurology recs per ED note (formal note not yet available in [facility]) who advised to give ASA and clopidogrel (clopidogrel not given as pt had already taken it that AM) and to admit to the ICU. Neurology felt the LVO was likely a chronic LVO. Continue ASA, clopidogrel, HIS. No acute indication for transfer per neurology. MRI brain shows an acute infarct. Onset was 02/08 Neurology recommending continuing DAPT, statin. Event monitor. (2) Pneumonia: Status: Acute Code(s): J18.9 - Pneumonia, unspecified organism Plan: Chest x-ray personally viewed and showed bilateral pulmonary infiltrates. Will add ceftriaxone and azithromycin. DC doxycycline. Pulmonary toilet. Strep and legionella antigens negative. Check SCx. DC with levofloxacin (3) Uncontrolled hypertension: Status: Acute Code(s): I10 - Essential (primary) hypertension Plan: Given delayed presentation of CVA, can resume home medications: amlodipine 10, carvedilol 25 BID, clonidine 0.1 BID, furosemide 60 daily, lisinopril 20 BID, isosorbide 60 BID Add PRN hydralazine Continue previous home medications. I had seen the patient on 10/12 for a SPOT REMOVER for coughing fit then led to a syncopal episode. I had recommended that lisinopril be discontinued at that time, but it appears it has been continued. It is unclear if his cough was lisinopril- induced. So, will continue it for the time being. (4) COPD exacerbation: Status: Chronic Code(s): J44.1 - Chronic obstructive pulmonary disease with (acute) exacerbation Plan: Complicated by pneumonia DC methylpred. Start prednisone for 5 days. BDs Plan DM2: a1c 10.8. Continue glargine and SSI. Obesity class II: complicates care and recovery HLP: continue statin CAD: stable on DAPT, atorvastatin. VTE prophylaxis: SCDs Medications at Discharge Home Medications aspirin 81 mg chewable tablet 81 mg PO DAILY heart health 04/27/22 loratadine 10 mg tablet 10 mg PO DAILY PRN allergies 06/26/22 amlodipine 10 mg tablet 10 mg PO DAILY blood pressure #90 tabs 06/25/23 lisinopril 20 mg tablet 20 mg PO BID blood pressure #180 tabs 11/26/23 atorvastatin 80 mg tablet 80 mg PO QHS cholesterol #90 tabs 12/28/23 insulin degludec 200 unit/mL (3 mL) subcutaneous pen (Tresiba FlexTouch U-200 insulin) 50 unit (0.25 mL) subcut QHS blood sugar 3 months #22.5 mL 12/28/23 ranolazine 1,000 mg tablet,extended release,12 hr 1,000 mg PO BID heart #60 tabs01/03/24 clopidogrel 75 mg tablet (Plavix) 75 mg PO DAILY anti platelet #90 tabs 01/15/24 isosorbide mononitrate 60 mg tablet,extended release 24 hr 60 mg PO BID heart #180 TABLETS 01/15/24 nitroglycerin 0.4 mg sublingual tablet 0.4 mg sublingual Q5-15M chest pain #25 tabs 07/22/24 albuterol sulfate 90 mcg/actuation aerosol inhaler 2 puff inhalation 4X/DAY PRN Shortness Of Breath #8.5 grams 09/01/24 potassium chloride 20 mEq tablet,extended release(part/cryst) 20 meq PO BIDCM #60 tabs 10/13/24 carvedilol 25 mg tablet 25 mg PO BIDCM heart health #180 tabs 10/27/24 clonidine HCl 0.1 mg tablet 0.1 mg PO BID blood pressure #180 tabs 12/15/24 furosemide 20 mg tablet (Lasix) 60 mg (3 x 20 mg) PO DAILY #270 tabs 01/15/25 guaifenesin 1,200 mg tablet, extended release 12 hr (Mucus Relief ER) 600 mg PO BID 02/10/25 insulin lispro 100 unit/mL subcutaneous pen (Humalog KwikPen (U-100) Insulin) 20unit subcut TIDAC PRN DIABETES 02/10/25 levofloxacin 750 mg tablet 750 mg PO DAILY #5 tabs 02/11/25 prednisone 20 mg tablet 40 mg (2 x 20 mg) PO BREAKFAST #8 tabs 02/11/25 Hospital Course Procedures 2-D Echocardiogram Summary of Care Provided Minutes Spent on Discharge: 32 Hospital Course: Patient presents with slurred speech and expressive aphasia that began 2 days prior. Patient had a CAT scan reported as a large vessel occlusion of the A1 segment of the right anterior cerebellar artery. Patient was seen by neurology in the ED and transfer was not recommended but to continue with his current treatments of aspirin, clopidogrel and statin. Acute white matter infarction onthe MRI. Neurology reevaluated and recommend continuing current treatment but patient to have a an event monitor. Neurology did not recommend any additional treatments for the A1 LVO. Patient will also follow-up with neurology as outpatient. Concerning on his x- rays also for pneumonia so he was treated with antibiotics while he was here be discharged with levofloxacin. Was concerning for COPD exacerbation still be on short course of prednisone. Weight / BMI Weight Weight: 107.9 kg Body Mass Index (BMI) 36.1 ABG / Lab / Microbiology Data 02/10/25 18:11 02/10/25 18:11 Laboratory: Laboratory Results - last 24 hr 02/10/25 18:11: WBC 9.4, RBC 4.92, Hgb 13.5, Hct 41.1, MCV 83.5, MCH 27.4, MCHC 32.8, RDW Std Deviation 42.5, RDW Coeff of Narcisa 13.9, Plt Count 317, MPV 10.6, Immature Gran % (Auto) 0.300, Neut % (Auto) 61.8, Lymph % (Auto) 25.5, [place] % (Auto) 9.2, Eos % (Auto) 2.4, Baso % (Auto) 0.8, Absolute Neuts (auto) 5.8, Absolute Lymphs (auto) 2.41, Nucleated RBC % 0, Sodium 137, Potassium 4.3, Chloride 102, Carbon Dioxide 23.1, Anion Gap 12, BUN 24 H, Creatinine 1.09, Estim Creat Clear Calc 93.49, Est GFR (MDRD) Non-Af 81, BUN/Creatinine Ratio 22.0 H, Glucose 255 H, Calcium 9.1, Troponin T High Sens 25 H, NT pro BNP II 709, TSH 3.160, Free T4 1.20 02/10/25 18:16: POC Glucose 234 H 02/10/25 18:48: Lactic Acid 1.9 02/10/25 20:11: Troponin T Hi Sens 2 Hr 24 H 02/11/25 01:29: Hemoglobin A1c 10.8, Vitamin B12 573, Serum Folate 7.12, TSH 0.973, Ethyl Alcohol < 10.1 02/11/25 02:30: Urine Opiates Screen NEGATIVE, U Buprenorphine Qual NEGATIVE, UrOxycodone Screen NEGATIVE, Urine Methadone Screen NEGATIVE, Urine Fentanyl Screen NEGATIVE, Ur Barbiturates Screen NEGATIVE, Ur Phencyclidine Scrn NEGATIVE, Ur Amphetamines Screen NEGATIVE, U Benzodiazepines Scrn NEGATIVE, Urine Cocaine Screen NEGATIVE, U Cannabinoids Screen NEGATIVE 02/11/25 05:39: POC Glucose 435 H 02/11/25 05:44: Triglycerides 76, Cholesterol 215 H, LDL Cholesterol, Calc 160, VLDL Cholesterol 15, HDL Cholesterol 40, Cholesterol/HDL Ratio 5.44 02/11/25 10:57: POC Glucose 339 H Microbiology: Microbiology 02/11/25 08:45 Urine, Random Legionella Antigen - Final 02/11/25 08:45 Urine, Random Streptococcus pneumoniae Antigen (M - Final ABG: ABG 02/10/25 19:09 Specimen Type TAMIKA Sample Site Not entered VBG pH 7.38 VBG pO2 52 H VBG HCO3 28 H VBG Total CO2 30 VBG O2 Sat (Calc) 85 H VBG Base Excess 3 POC Mix VBG pCO2 Pt Tmp 47.6 O2 Delivery Device Room Air Radiography Diagnostic Testing: Radiology Impression Chest X-Ray 02/10/25 18:11 IMPRESSION: Diffuse bilateral pulmonary infiltrates. Differential includes diffuse infection versus inflammatory process within the lungs. Follow-up until complete resolution is recommended. These findings are new since prior examination. Reading Location: [id number] Brain CT 02/10/25 18:31 IMPRESSION: 1.9 by 1.1 x 1.3 cm hypodense area seen within the deep white matter along the right lateral convexity. This is new since prior examination. Differential possibility includes, but not limited to acute/subacute infarct versus intracranial mass. Recommend MRI brain for further evaluation at this time. Red Alert: 1.9 by 1.1 x 1.3 cm hypodense area seen within the deep white matter along the right lateral convexity. This is new since prior examination. Differential possibility includes, but not limited to acute/subacute infarct versus intracranial mass. Recommend MRI brain for further evaluation at this time. The critical information above was relayed directly by me by telephone to Jasbir Curry on 02/10/2025 at 8:00 pm with readback verification. Reading Location: [id number] Head/Neck CTA 02/10/25 18:31 IMPRESSION: 1. 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 Small caliber distal right ARELY. Consider neuro IR consultation and/or neurology consult for discussion of endovascular thrombectomy versus anticoagulation. 2. Approximately 50% stenosis of the left carotid artery by NASCET criteria. Dr. Thompson discussed these findings via telephone with Dr. Curry at 8:50 pm on 02/10/25. Reading Location: [facility] Brain MRI 02/11/25 00:16 IMPRESSION: Acute white matter infarction, with stable size, seen in the area hypodensity noted in the CT of 02/11/2025. Reading Location: [address] Echocardiogram 02/11/25 00:16 Interpretation Summary Normal LV size. Severe global left ventricular systolic dysfunction. Bubble contrast study negative for right to left interatrial shunt. Mild (1+) eccentric mitral valve insufficiency. Moderate concentric left ventricular hypertrophy. The left ventricular ejection fraction is 25 %. Stage 3 diastolic dysfunction. Compared to previous study, the left ventricular systolic function has worsened.. Ordering Physician: Mitchell Deras Performed By: Jose Bruner RCS D/C Instructions Discharge Diet: Low fat / Low cholesterol and 2000 Calorie Control Diet DC O2, CPAP, BIPAP Needs Home O2 Discharge instructions: No Meaningful Use Info Meaningful Use Meaningful Use Diagnoses (Choose all that apply): Ischemic CVA CVA Therapy Assessed for PT,OT and/or ST?: Yes Ischemic Stroke Antithrombotic order at d/c?: No Reason antithrombotic not ordered: Treatment not Indicated Dx of Atrial fib/flutter?: No Anticoagulant at discharge?: No Reason anticoagulant not ordered: Treatment not Indicated Statin Dosing Therapy Reference: STATIN DOSE THERAPY REFERENCE: * Patients > 75 years receive moderate or high dose statin therapy. * Patients 75 years or YOUNGER should receive HIGH intensity statin dose unless contraindicated. You will be required to document reason for non-treatment if statin daily dose does not meet guidelines. HIGH DOSE STATIN THERAPY DAILY Atorvastatin > than or = to 40 mg Rosuvastatin > than or = to 20 mg Amlodipine + Atorvastatin > than or = to 2.5/40 mg Ezetimibe + Simvastatin 10/80 mg Simvastatin 80mg Statins at discharge?: Yes If patient is 75 or younger, pt will be discharged on HIGH intensity statin.: Yes Primary Dx Acute Ischemic CVA?: Yes IV thrombolytic ordered during stay?: No Reason IV thrombolytic not ordered: Procedure not Indicated Discharge Plan Admission Admit Date/Time: 02/11/25 00:04 Primary Reason for Your Visit: Stroke Attending Provider: Brennon Juarez Primary Care Provider: Beka Bowie Consulting Providers: Federico Ramirez; Willie Aguiar; Ayla Todd; Zeynep Daly; Asia Barragan; Eduardo Deal; Aleah Bradshaw; Ricardo Thomas; Rosario Covarrubias; Anil Lema; Farzana Barth; Mal Bishop; Cele Padilla; Roel Jasso; Kala Quiroz; Luis Lucero; Richard Mills; Herberth Granados; Marissa Mars; Grant Schrader;Mitchell Deras Instructions Additional Instructions / Restrictions: You had a stroke which caused her symptoms of slurred speech and difficulty wordfinding. You will continue with your current medications for that. Neurology has requested an event monitor (a wearable heart monitor) to see if any evidenceof any abnormal heart rhythm such as atrial fibrillation that may warrant changes to your treatment. Please follow-up with neurology at your early convenience. [facility] [phone]. [facility] [place] [phone]. [facility] [place] [phone]. [facility] [phone]. [facility] [phone] Additionally looks like you have a pneumonia so you will be on antibiotics for several more days and I have you on some steroids to help with your COPD. The steroids may cause your blood sugars to be temporally elevated why you are taking them. Discharge Orders/Prescriptions Prescriptions: New prednisone 20 mg Tablet 40 mg PO BREAKFAST Qty: 8 0RF levofloxacin 750 mg tablet 750 mg PO DAILY Qty: 5 0RF Continued atorvastatin 80 mg tablet 80 mg PO QHS Qty: 90 1RF insulin degludec [Tresiba FlexTouch U-200] 200 unit/mL (3 mL) insulin pen 50 unit SUBCUT QHS 90 Days Qty: 22.5 1RF clopidogrel [Plavix] 75 mg tablet 75 mg PO DAILY Qty: 90 3RF isosorbide mononitrate 60 mg tablet extended release 24 hr 60 mg PO BID Qty: 180 3RF aspirin 81 MG tablet,chewable 81 mg PO DAILY loratadine 10 mg tablet 10 mg PO DAILY PRN (Reason: allergies) potassium chloride 20 mEq Tablet,Er Particles/Crystals 20 meq PO BIDCM Qty: 60 0RF insulin lispro [Humalog KwikPen Insulin] 100 unit/mL Insulin Pen 20 unit subcut TIDAC PRN (Reason: DIABETES) guaifenesin [Mucus Relief ER] 1,200 mg Tablet Extended Release 12hr 600 mg PO BID amlodipine 10 mg tablet 10 mg PO DAILY Qty: 90 3RF lisinopril 20 mg tablet 20 mg PO BID Qty: 180 3RF ranolazine 1,000 mg tablet extended release 12 hr 1,000 mg PO BID Qty: 60 11RF nitroglycerin 0.4 mg tablet, sublingual 0.4 mg sublingual Q5-15M Qty: 25 3RF albuterol sulfate 90 mcg/actuation HFA aerosol inhaler 2 puff INHALATION 4X/DAY PRN (Reason: Shortness Of Breath) Qty: 8.5 0RF carvedilol 25 mg tablet 25 mg PO BIDCM Qty: 180 3RF clonidine HCl 0.1 mg tablet 0.1 mg PO BID Qty: 180 3RF furosemide [Lasix] 20 mg tablet 60 mg PO DAILY Qty: 270 3RF Other Ambulatory Orders: 30 Day Event Recorder Preventi (Urgent) Timeframe: 1 Day Facility: [facility] - Location: Cardiovascular Services Ordered By: Dr. Brennon Juarez Referrals / Follow Up: Beka Bowie MD [Primary Care Provider] - Within 2 Weeks Disposition Disposition (needs filled in before D/C Order can be placed): Home, Self Care Charges/Coding Visit Charges Inpatient E&M: 10900 Disch Hosp >30min 02/11/25 1432 <Electronically signed by Brennon Juarez DO> Cosigner Signature (if applicable): CC: Dr. Beka Bowie MD; Dr. Brennon Juarez DO~ Signed 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 [employer] rebekah Nicotine dependence chronic History of coronary artery stent placement November 182020 resolved Coronary artery disease acut e Essential hypertension acute Insulin dependent diabetes mellitus acute Nicotine dependence chronic History of coronary artery stent placement November 182020 resolved Diabetes acute Obesity (BMI 30.0-34.9) mounter flutes and [employer] rebekah Chest pain acute Coronary artery disease acut e Essential hypertension acute Unstable angina acute [id number] chronic History of non-ST elevation myocardial infarction (NSTEMI) November 22, 2020 chronic Hyperlipidemia chronic History of coronary artery stent placement November 18[address] 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 Work Phone: evaluation noteNo assessment information available [facility] Work Phone: evaluation note* Diagnosis Onset Date Resolution Status Chest pain acute Essential hypertension acute COPD (chronic obstructive pulmonary disease) chronic Nicotine dependence chronic [facility] Work Phone: Evaluation note* Diagnosis Onset Date Resolution Status Chest pain acute Essential hypertension acute COPD (chronic obstructive pulmonary disease) chronic Nicotine dependence chronic Chest pain acute Essential hypertension acute History of coronary artery stent placement November 182020 acute Hypertensive emergency acute Non-ST elevation NE (NSTEMI) acute COPD (chronic obstructive pulmonary disease) chronic Nicotine dependence chronic Elevated troponin resolved Hypertensive urgency resolve d [facility] Work Phone: Evaluation note* Diagnosis Onset Date Resolution Status Chest pain acute Essential hypertension acute COPD (chronic obstructive pulmonary disease) chronic Nicotine dependence chronic Chest pain acute Essential hypertension acute History of coronary artery stent placement December acute Hypertensive emergency acute Non-ST elevation NE (NSTEMI) acute COPD (chronic obstructive pulmonary disease) chronic Nicotine dependence chronic Elevated troponin resolved Hypertensive urgency resolve d [facility] Work Phone: Evaluation note* Diagnosis Onset Date Resolution Status Chest pain resolved Chest pain resolved Elevated troponin resolved Hypertensive emergency resol cameron Hypertensive urgency resolve d Non-ST elevation NE (NSTEMI) resolved Chest pain resolved Non-ST elevation NE (NSTEMI) resolved [facility] Work Phone: Evaluation note* Diagnosis Onset Date Resolution Status COPD (chronic obstructive pulmonary disease) chronic Essential hypertension chron ic Chest pain resolved COPD (chronic obstructive pulmonary disease) chronic Essential hypertension chron ic Chest pain resolved Elevated troponin resolved Hypertensive emergency resol cameron Hypertensive urgency resolve d Non-ST elevation NE (NSTEMI) resolved Essential hypertension chron ic Chest pain resolved Non-ST elevation NE (NSTEMI) resolved Vitamin D deficiency acute Essential hypertension chron ic Ischemic cardiomyopathy mounter flutes and piccolos rebekah COPD (chronic obstructive pulmonary disease) chronic Essential hypertension chron ic Insulin dependent diabetes mellitus chronic [facility] Work Phone: Evaluation note* Diagnosis Bacterial conjunctivitis- Primary Other conjunctivitis [facility] Diagnosis Onset Date Resolution Status Admit Date Abnormal computed tomography angiography of head acute February 11, 2025 12:04am Acute bacterial bronchitis acute February 11, 2025 12:04am Acute CVA (cerebrovascular accident) acute February 11, 2025 12:04am Obesity (BMI 30-39.9) acute Jan 12:04am Uncontrolled hypertension acute February 11, 2025 12:04am COPD exacerbation chronic January 182024 12:04am [facility] Work Phone: History and physical note Author Mary Lewis [facility] December 24, 2023 3:15pm Note Date/Time December 24, 2023 3 :13pm [facility] Medical Records Department [address] [place] [id number] H&P Exam - Hospitalist 12/24/23 1503 MR#: [id number] Acct: [id number] Name: LATONYA ELDER Rep #:[id number] : 1970 53 From: Mary Lewis MD PCP: Dr. Beka Bowie MD Status:A DM IN Location: [facility] [id number] HPI - General General Date of Admission: 12/24/23 Date of Service: 12/24/23 Chief Complaint: Chest pain, SOB HPI Narrative LATONYA ELDER, is a 53-year-old male history of COPD, tobacco use, hypertension, type 2 diabetes mellitus, CAD with 7 stents who presented to [facility] ED 12/24/2023 with chest pain for the past month that worsened today. Patient noted having a stress test a few weeks ago which was reportedly negativeand his medicines changed but since that time he has been having chest pain and left arm pain with some nausea and vomiting. The pain is more like a pressure sensation. Patient tried nitroglycerin but his chest pain persisted prompting him to come to the ED. In the ED initial blood pressure 202/110. Chest x-ray with borderline cardiomegaly, BNP of 103 and first troponin of 300. Cardiology contacted and advised patient be placed on heparin drip and nitro drip, unclear if NSTEMI versus hypertensive emergency and it was recommended the patient be admitted. Hospitalist contacted for admission. Patient seen at bedside and reported chest pain off-and-on for a month but this morning woke up with the pain and shortness of breath, took a nitro initially which was not very helpful,took a second 1 which did give him some relief and he laid down for 15 minutes but the pain returned so he took another nitro and came to the hospital. Has had some shortness of breath since yesterday, has a cough that is chronic and chronic leg swelling. Just not feeling well overall though chest pain is down to 1 or 2 at present. Denies any other acute complaints PFSH Medical History Acute sinusitis, unspecified Asthma Atherosclerosis of [place] coronary artery of [place] heart without angina pectoris Chronic obstructive pulmonary disease (COPD) Cluster headache Community acquired pneumonia COPD (chronic obstructive pulmonary disease) Coronary artery disease Diabetes Essential hypertension Headache History of non-ST elevation myocardial infarction (NSTEMI) (11/22/20) Hyperlipidemia Insulin dependent diabetes mellitus Ischemic cardiomyopathy Left shoulder pain Migraine Myocardial infarct Nicotine dependence Non-ST elevation NE (NSTEMI) Obesity Obesity (BMI 30.0-34.9) Smoker Home Medications albuterol sulfate 90 mcg/actuation aerosol inhaler 2 puff inhalation 4X/DAY PRN Shortness Of Breath 04/27/22 [History Last Taken 04/27/22] aspirin 81 mg chewable tablet 81 mg PO DAILY heart health 04/27/22 [History Last Taken 04/27/22] atorvastatin 80 mg tablet 80 mg PO QHS cholesterol 04/27/22 [History Last Taken 04/26/22] loratadine 10 mg tablet 10 mg PO DAILY PRN allergies 06/26/22 [History Last Taken Unknown] isosorbide mononitrate 60 mg tablet,extended release 24 hr See Rx Instructions .Route .COMPLEX #60 TABLETS 04/02/23 [Rx Last Taken Unknown] insulin lispro 200 unit/mL (3 mL) subcutaneous pen (Humalog KwikPen U-200 Insulin) See Rx Instructions .Route .COMPLEX #19 mL 04/12/23 [Rx Last Taken Unknown] carvedilol 25 mg tablet 25 mg PO BIDCM #180 tabs 04/24/23 [Rx Last Taken Unknown] clonidine HCl 0.1 mg tablet 0.1 mg PO BID #180 tabs 04/24/23 [Rx Last Taken Unknown] clopidogrel 75 mg tablet See Rx Instructions .Route .COMPLEX #90 TABLETS 05/28/23 [Rx Last Taken Unknown] amlodipine 10 mg tablet 10 mg PO DAILY #90 tabs 06/25/23 [Rx Last Taken Unknown] insulin degludec 200 unit/mL (3 mL) subcutaneous pen (Tresiba FlexTouch U-200 insulin) 50 unit subcut QHS 11/21/23 [History Last Taken Unknown] lisinopril 20 mg tablet 20 mg PO BID blood pressure #180 tabs 11/26/23 [Rx Last Taken Unknown] ProAir RespiClick 90 mcg/actuation breath activated (albuterol sulfate) See Rx Instructions inhalation PRN PRN Bronchodilation #1 ea 12/12/23 [Rx Last Taken Unknown] nitroglycerin 0.4 mg sublingual tablet See Rx Instructions .Route .COMPLEX #25 tabs 12/14/23 [Rx Last Taken Unknown] ranolazine 1,000 mg tablet,extended release,12 hr 1,000 mg PO BID #180 tabs 12/18/23 [Rx Last Taken Unknown] Allergy/AdvReac Type Severity Reaction Status Date / Time amoxicillin trihydrate Allergy Rash Verified 12/06/23 15:11 [From Augmentin] potassium clavulanate Allergy Rash Verified 12/06/23 15:11 [From Augmentin] codeine AdvReac Nausea Verified 12/06/23 15:11 Family History Sister Myocardial infarction, Onset Age: 41 Diabetes Mother COPD (chronic obstructive pulmonary disease) Asthma Rheumatoid arthritis CVA (cerebral vascular accident) Hypertension Grandmother Diabetes Surgical History History of appendectomy History of coronary artery stent placement (11/18/21) History of hernia repair (2008) History of neck surgery History of umbilical hernia repair (1971) Social History Smoking Status: Current every day smoker tobacco type: cigarettes Tobacco: How many years used: 20 Electronic Cigarette Use: not used second hand exposure: Yes alcohol intake: current alcohol intake frequency: 0-2 drinks per day Alcohol type: beer substance use type: does not use caffeine: Yes Type: carbonated beverages Number of servings: 2 and tea Number of servings: 6 what type of physical activity do you participate in: none ROS ROS Narrative General: Denies fever/chills HENT: Some chronic headaches, denies stuffy nose, denies sore throat EYES: Denies changes in vision Resp: Chronic cough, shortness of breath today Cardiac: Substernal chest pain today GI: Denies abdominal pain, denies changes in bowel, denies nausea/vomiting : Denies changes in urination Extremity: Some chronic swelling in extremities MSK: Denies weakness Neuro: Denies any numbness/tingling Heme: Denies any bleeding or bruising Skin: Denies rashes Psychiatric: No complaints voiced Vital Signs Vital Signs Vital Signs: 12/24/23 12:19 12/24/23 12:50 12/24/23 12:50 Temperature 97.6 F L Temperature Source Temporal Pulse Rate Respiratory Rate Respiratory Effort Normal Blood Pressure Blood Pressure Mean Pulse Ox 93 Oxygen Delivery Method Room Air 12/24/23 12:40 12/24/23 13:08 12/24/23 14:00 Temperature Temperature Source Pulse Rate 100 94 Respiratory Rate 16 17 Respiratory Effort Blood Pressure 202/110 H 197/115 H 210/119 H Blood Pressure Mean 140 142 149 Pulse Ox 98 94 Oxygen Delivery Method Room Air Room Air 12/24/23 14:56 Temperature Temperature Source Pulse Rate 93 Respiratory Rate Respiratory Effort Blood Pressure 204/123 H Blood Pressure Mean 150 Pulse Ox Oxygen Delivery Method Physical Exam Narrative General: Alert, oriented, no apparent distress HEENT: Atraumatic, normocephalic Eyes: Anicteric, normal conjunctiva, extraocular movements grossly intact Neck: Supple Respiratory: Clear to auscultation bilaterally, normal respiratory effort Cardiovascular: Regular rate and rhythm GI: Soft, nontender, nondistended Extremities: No edema Musculoskeletal: Moving all extremities Neuro: No overt focal neurological deficits Skin: No rashes appreciated Psych: Cooperative Results Lab / Micro Data 12/24/23 12:20 12/24/23 12:20 Labs: Laboratory Results - last 24 hr 12/24/23 12:20: WBC 12.0 H, RBC 5.82, Hgb 17.3 H, Hct 51.4, MCV 88.3, MCH 29.7, MCHC 33.7, RDW Std Deviation 43.1, RDW Coeff of Narcisa 13.5, Plt Count 274, MPV 10.9, Immature Gran % (Auto) 0.900, Neut % (Auto) 67.1, Lymph % (Auto) 20.4, [place] % (Auto) 10.0, Eos % (Auto) 0.9, Baso % (Auto) 0.7, Absolute Neuts (auto) 8.1 H, Absolute Lymphs (auto) 2.44, Nucleated RBC % 0, PT 12.0, INR 0.9, APTT 24.7, D-Dimer Quant (PE/DVT) 0.47, Sodium 141, Potassium 3.6, Chloride 104, Carbon Dioxide 28.0, Anion Gap 9, BUN 14, Creatinine 1.13, Est GFR (MDRD) Af Amer 88, Est GFR (MDRD) Non-Af 72, BUN/Creatinine Ratio 12.4, Glucose 286 H, Calcium 9.8, Troponin I High Sens 300 H*, B-Natriuretic Peptide 103.6 H Imaging Radiology Impression Chest X-Ray 12/24/23 12:50 IMPRESSION: Borderline cardiomegaly. The lungs are clear. Electronically Signed: Jin Woodall MD at 13:13 EST Reading Location ID and State: [facility] / [place] , Service support , Assessment & Plan Assessment/Plan (1) Elevated troponin: (2) Hypertensive urgency: (3) Nicotine dependence: QUALIFIERS: Nicotine product type: cigarettes Substance use status: uncomplicated Qualified Code(s): F17.210 - Nicotine dependence, cigarettes, uncomplicated (4) History of coronary artery stent placement: (5) Essential hypertension: (6) COPD (chronic obstructive pulmonary disease): QUALIFIERS: COPD type: unspecified COPD Qualified Code(s): J44.9 - Chronic obstructive pulmonary disease, unspecified PLAN: Plan # Elevated troponin -Concern for NSTEMI given sx, elevated trop, and history versus hypertensive emergency given significant elevation in blood pressure -Initial troponin 300, will trend -EKG with no significant changes since EKG November 21, 2023 -Admit to telemetry -Discussed with cardiology, heparin drip, nitro drip -Asa, statin -Echocardiogram, last echo in 2020 with EF 50 to 55% with moderate concentric left ventricular hypertrophy and grade 1 diastolic dysfunction -Cardiology consult -Lipid panel -Will continue Ranexa and Imdur -Heart healthy diet # Hypertensive urgency versus emergency -Initial blood pressure 202/110 -Repeat 197/115 when trending back up -Unclear if elevated blood pressure causing chest pain and elevated troponin i.e. hypertensive emergency or if blood pressure elevated because patient havingchest pain -Continue home blood pressure medications once med rec confirmed -Discussed with cardiology, starting nitro drip, if this does not get BP under control will give a dose of clonidine -May need outpatient evaluation for secondary causes of hypertension given multiple medications with persistent elevated blood pressure # History of coronary artery disease -With 7 stents -As above # COPD -Continue present management -Albuterol as needed #Type 2 diabetes mellitus -Glucose checks and sliding scale insulin -Will check A1c -Continue long-acting insulin, patient to be n.p.o. at midnight so we will continue but decrease the dose #Tobacco use -Advise cessation -Nicotine replacement available if desired DVT ppx: hep gtt Charges/Coding Visit Charges Inpatient E&M: 04394 Init Hosp L2 12/24/23 1515 <Electronically signed by Mary Lewis MD> Cosigner Signature (if applicable): CC: Dr. Beka Bowie MD; Dr. Mary Lewis MD~ Signed [facility] Work Phone: Reason for referral (narrative)No reason for referral information availableWGal[facility] Work Phone: Chief Complaint and Reason for Visit Chief Complaint FU FROM ER chest pain chest pain 3 M FU 6 M FU UNSTABLE ANGINA Reason for Visit Essential hypertensi on [id number] Hyperlipidemia Ischemic cardiomyopathy Nicotine dependence History of coronary artery stent placement Coronary artery disease Essential hypertension Insulin dependent diabetes mellitus Nicotine dependence History of coronary artery stent placement Diabetes Obesity (BMI 30.0-34.9) Coronary artery disease Unstable angina Chief Complaint FU FROM ER chest pain chest pain 3 M FU 6 M FU UNSTABLE ANGINA UNSTABLE ANGINA UNSTABLE ANGINA Reason for Visit Essential hypertensi on [id number] Hyperlipidemia Ischemic cardiomyopathy Nicotine dependence History of coronary artery stent placement Coronary artery disease Essential hypertension Insulin dependent diabetes mellitus Nicotine dependence History of coronary artery stent placement Diabetes Obesity (BMI 30.0-34.9) Chest pain Coronary artery disease Essential hypertension Unstable angina [id number] History of non-ST elevation myocardial infarction (NSTEMI) Hyperlipidemia History of coronary artery stent placement Chief Complaint 6 M FU UNSTABLE ANGINA UNSTABLE ANGINA UNSTABLE ANGINA S/P PCU PER MSG FROM MMM 3 M FU E-ORDER Reason for Visit Diabetes Obesity (BMI 30.0-34.9) Essential hypertension Chest pain Unstable angina Essential hypertension Ischemic cardiomyopathy Nicotine dependence Diabetes Essential hypertension Left shoulder pain Chief Complaint 6 M FU UNSTABLE ANGINA UNSTABLE ANGINA UNSTABLE ANGINA S/P PCU PER MSG FROM MMM 3 M FU E-ORDER HYPERTENSIVE URGENCY Reason for Visit Diabetes Obesity (BMI 30.0-34.9) Essential hypertension Chest pain Unstable angina Essential hypertension Ischemic cardiomyopathy Nicotine dependence Diabetes Essential hypertension Left shoulder pain Diabetes Hypertensive urgency Non-ST elevation (NSTEMI) myocardial infarction Chief Complaint 6 M FU UNSTABLE ANGINA UNSTABLE ANGINA UNSTABLE ANGINA S/P PCU PER MSG FROM MMM 3 M FU E-ORDER HYPERTENSIVE URGENCY HYPERTENSIVE URGENCY HYPERTENSIVE URGENCY Reason for Visit Diabetes Obesity (BMI 30.0-34.9) [id number] Essential hypertension Chest pain Unstable angina [id number] Essential hypertension Ischemic cardiomyopathy Nicotine dependence Diabetes Essential hypertension Left shoulder pain [id number] Diabetes Essential hypertension Hypertensive urgency Non-ST elevation (NSTEMI) myocardial infarction Chief Complaint CHEST PAIN Chief Complaint CHEST PAIN CHEST PAIN ER FU CHEST PAIN CHEST PAIN Amb Documentation Reason for Visit Chest pain Essential hypertension COPD (chronic obstructive pulmonary disease) Nicotine dependence Chief Complaint CHEST PAIN CHEST PAIN ER FU CHEST PAIN CHEST PAIN Amb Documentation NSTEMI, HYPERTENSIVE EMERGENCY NSTEMI, HYPERTENSIVE EMERGENCY Reason for Visit Chest pain Essential hypertension COPD (chronic obstructive pulmonary disease) Nicotine dependence Chest pain Essential hypertension History of coronary artery stent placement Hypertensive emergency Non-ST elevation NE (NSTEMI) COPD (chronic obstructive pulmonary disease) Nicotine dependence Elevated troponin Hypertensive urgency Chief Complaint CHEST PAIN CHEST PAIN ER FU CHEST PAIN CHEST PAIN Amb Documentation NSTEMI, HYPERTENSIVE EMERGENCY NSTEMI, HYPERTENSIVE EMERGENCY NSTEMI, HYPERTENSIVE EMERGENCY NSTEMI, HYPERTENSIVE EMERGENCY NSTEMI, HYPERTENSIVE EMERGENCY Reason for Visit Chest pain Essential hypertension COPD (chronic obstructive pulmonary disease) Nicotine dependence Chest pain Essential hypertension History of coronary artery stent placement Hypertensive emergency Non-ST elevation NE (NSTEMI) COPD (chronic obstructive pulmonary disease) Nicotine dependence Elevated troponin Hypertensive urgency Chief Complaint CHEST PAIN CHEST PAIN ER FU CHEST PAIN CHEST PAIN Amb Documentation NSTEMI, HYPERTENSIVE EMERGENCY NSTEMI, HYPERTENSIVE EMERGENCY NSTEMI, HYPERTENSIVE EMERGENCY NSTEMI, HYPERTENSIVE EMERGENCY NSTEMI, HYPERTENSIVE EMERGENCY [facility] FOLLOW UP Reason for Visit Chest pain Chest pain Elevated troponin Hypertensive emergency Hypertensive urgency Non-ST elevation NE (NSTEMI) Chest pain Non-ST elevation NE (NSTEMI) Chief Complaint CHEST PAIN CHEST PAIN ER FU CHEST PAIN CHEST PAIN Amb Documentation NSTEMI, HYPERTENSIVE EMERGENCY NSTEMI, HYPERTENSIVE EMERGENCY NSTEMI, HYPERTENSIVE EMERGENCY NSTEMI, HYPERTENSIVE EMERGENCY NSTEMI, HYPERTENSIVE EMERGENCY [facility] HOSPITAL FOLLOW UP S/P [facility] 12/26 HTN URGENCY fu Severe persistent asthma, uncomplicated Reason for Visit COPD (chronic obstru ctive pulmonary disease) Essential hypertension Chest pain COPD (chronic obstructive pulmonary disease) Essential hypertension Chest pain Elevated troponin Hypertensive emergency Hypertensive urgency Non-ST elevation NE (NSTEMI) Essential hypertension Chest pain Non-ST elevation NE (NSTEMI) Vitamin D deficiency Essential hypertension Ischemic cardiomyopathy COPD (chronic obstructive pulmonary disease) Essential hypertension Insulin dependent diabetes mellitus Chief Complaint Admit Date LVO OF THE A1 SEGMENT OF THE RIGHT ARELY P [place] RIGHT February 11, 2025 12:04am Reason for Visit Admit Date Abnormal computed tomography angiography of head February 11, 2025 12:04am Acute bacterial bronchitis February 11, 025 12:04am Acute CVA (cerebrovascular accident) Mar 2024 12:04am Obesity (BMI 30-39.9) February 11, 2025 1 2:04am Uncontrolled hypertension February 11 12:04am COPD exacerbation February 11, 2025 12: 04am Chief Complaint Admit Date LVO OF THE A1 SEGMENT OF THE RIGHT ARELY P [place] RIGHT February 11, 2025 12:04am LVO OF THE A1 SEGMENT OF THE RIGHT ARELY P [place] RIGHT February 11, 2025 6:56am Reason for Visit Admit Date Abnormal computed tomography angiography of head February 11, 2025 12:04am Acute bacterial bronchitis February 11, 025 12:04am Acute CVA (cerebrovascular accident) Mar 2024 12:04am CVA (cerebral vascular accident) January 182024 12:04am Obesity (BMI 30-39.9) February 11, 2025 1 2:04am Pneumonia February 11, 2025 12: 04am Uncontrolled hypertension February 11 12:04am COPD exacerbation February 11, 2025 12: 04am Family History No Family History Records Found Relationship Condition Age at Onset Recorded Date/T brii sister Myocardial infarction 41 Diabetes mellitus Unknown mother Chronic obstructive pulmonary disease Unk nown Asthma Unknown Rheumatoid arthritis Unknown Cerebrovascular accident (CVA) Unknown Hypertension Unknown grandmother Diabetes mellitus Unknown Advance Directives No Advanced Directives Records Found Advance Directive Response Recorded Date/ Time Advance Directives No June 01 2:28pm Living Will No April 27, 2022 7 :19am Power of Jai Alai Player No April 27, 2022 7:19am Advance Directive Response Recorded Date/ Time Advance Directives No June 01 2:28pm Living Will No April 27, 2022 1 0:04am Power of Jai Alai Player No April 27, 2022 10:04am Advance Directive Response Recorded Date/ Time Advance Directives No June 01 2:28pm Living Will No June 26, 2022 1:06am Power of Jai Alai Player No June 26 1:06am Advance Directive Response Recorded Date/ Time Advance Directives No June 01 2:28pm Living Will No June 26, 2022 4:53am Power of Jai Alai Player No June 26 4:53am Advance Directive Response Recorded Date/ Time Advance Directives No June 01 1:28pm Living Will No November 21 6:37am Power of Jai Alai Player No November 21 6:37am Advance Directive Response Recorded Date/ Time Advance Directives No June 01 1:28pm Living Will No December 24 12:50pm Power of Jai Alai Player No December 24, 2023 12:50pm Advance Directive Response Recorded Date/ Time Advance Directives No June 01 1:28pm Living Will No December 24 4:35pm Power of Jai Alai Player No December 24, 2023 4:35pm Advance Directive Response Recorded Date/ Time Advance Directives No June 01 2:28pm Living Will No December 24 5:35pm Power of Jai Alai Player No December 24, 2023 5:35pm Advance Directive Response Recorded Date/ Time Living Will No February 10, 2025 6:08pm Do you have a Healthcare Power of Jai Alai Player? No February 10, 2025 6:08pm Advance Directives No June 01 2:28pm Advance Directive Response Recorded Date/ Time Living Will No February 11, 2025 12:38am Do you have a Healthcare Power of Jai Alai Player? No February 11, 2025 12:38am Advance Directives No June 01 2:28pm Summary Purpose Additional Source Comments Goals (unrecognized section and content) Goals may be documented in a n alternate sectionGoals may be documented in an alternate sectionGoals may be documented in an alternate sectionGoals may be documented in an alternate sectionGoals may be documented in an alternate sectionGoals may be documented in an alternate section Care Teams (unrecognized sec tion and content) Team Status: Active Member Role Status Dates Dr. Beka Bowie MD Primary Care Provider Active Team Status: Inactive Member Role Status Dates Dr. Beka Bowie MD Primary Care Provider Active Start: February 11, 2025 End: February 11, 2025 Dr. Jasbir Curry DO Emergency Provider Active Start: February 11, 2025 End: February 11, 2025 Dr. Mitchell Deras DO Admit Provider Active Start: February 11, 2025 End: February 11, 2025 Dr. Mitchell Deras DO Other Provider Active Start: February 11, 2025 End: February 11, 2025 Federico Ramirez MD Other Provider Active Start: [facility] 2024 End: February 11, 2025 Dr. Willie Aguiar MD Other Provider Active Start: February 11, 2025 End: February 11, 2025 Ayla Todd MD Other Provider Active Start : February 11, 2025 End: February 11, 2025 Dr. Zeynep Daly DO Other Provider Active St art: February 11, 2025 End: February 11, 2025 Dr. Asia Barragan MD Other Provider Active Start: February 11, 2025 End: February 11, 2025 Dr. Eduardo Deal MD Other Provider Active Sta rt: February 11, 2025 End: February 11, 2025 Dr. Aleah Bradshaw MD Other Provider Active Start : February 11, 2025 End: February 11, 2025 Dr. Ricardo Thomas MD Other Provider Active Start: February 11, 2025 End: February 11, 2025 Dr. Rosario Covarrubias MD Other Provider Active Start : February 11, 2025 End: February 11, 2025 Dr. Anil Lema MD Other Provider Active Sta rt: February 11, 2025 End: February 11, 2025 Farzana Barth MD Other Provider Active Start : February 11, 2025 End: February 11, 2025 Dr. Mal Bishop MD Other Provider Active St art: February 11, 2025 End: February 11, 2025 Dr. Cele Padilla MD Other Provider Active Start : February 11, 2025 End: February 11, 2025 Dr. Roel Jasso MD Other Provider Active Sta rt: February 11, 2025 End: February 11, 2025 Dr. Kala Quiroz MD Other Provider Active Start: February 11, 2025 End: February 11, 2025 Dr. Luis Lucero MD Other Provider Active St art: February 11, 2025 End: February 11, 2025 Dr. Richard Mills MD Other Provider Active Star t: February 11, 2025 End: February 11, 2025 Dr. Herberth Granados MD Other Provider Active St art: February 11, 2025 End: February 11, 2025 Dr. Marissa Mars MD Other Provider Active Start: February 11, 2025 End: February 11, 2025 Grant Schrader MD Other Provider Active Start: February 11, 2025 End: February 11, 2025 Dr. Brennon Juarez DO Attending Provider Active Start: February 11, 2025 End: February 11, 2025 Team Status: Active Member Role Status Dates Dr. Beka Bowie MD Primary Care Provider Active Start: February 11, 2025 Dr. Jasbir Curry DO Emergency Provider Active Start: February 11, 2025 Dr. Mitchell Deras DO Admit Provider Active Start: February 11, 2025 Dr. Mitchell Deras DO Other Provider Active Start: February 11, 2025 Federico Ramirez MD Other Provider Active Start: [facility] [address]24 Dr. Willie Aguiar MD Other Provider Active Start: February 11, 2025 Ayla Todd MD Other Provider Active Start : February 11, 2025 Dr. Zeynep Daly DO Other Provider Active St art: February 11, 2025 Dr. Asia Barragan MD Other Provider Active Start: February 11, 2025 Dr. Eduardo Deal MD Other Provider Active Sta rt: February 11, 2025 Dr. Aleah Bradshaw MD Other Provider Active Start : February 11, 2025 Dr. Ricardo Thomas MD Other Provider Active Start: February 11, 2025 Dr. Rosario Covarrubias MD Other Provider Active Start : February 11, 2025 Dr. Anil Lema MD Other Provider Active Sta rt: February 11, 2025 Farzana Barth MD Other Provider Active Start : February 11, 2025 Dr. Mal Bishop MD Other Provider Active St art: February 11, 2025 Dr. Cele Padilla MD Other Provider Active Start : February 11, 2025 Dr. Roel Jasso MD Other Provider Active Sta rt: February 11, 2025 Dr. Kala Quiroz MD Other Provider Active Start: February 11, 2025 Dr. Luis Lucero MD Other Provider Active St art: February 11, 2025 Dr. Richard Mills MD Other Provider Active Star t: February 11, 2025 Dr. Herberth Granados MD Other Provider Active St art: February 11, 2025 Dr. Marissa Mars MD Other Provider Active Start: February 11, 2025 Grant Schrader MD Other Provider Active Start: February 11, 2025 Dr. Brennon Jopperi , DO Attending Provider Active Start: February 11, 2025 Dr. Brennon Juarez , Other Provider Active Star t: February 11, 2025 Team Status: Active Member Role Status Dates Dr. Beka Bowie MD Primary Care Provider Active Start: February 11, 2025 Dr. Eric Flores MD Attending Provider Active S tart: February 11, 2025 Team Status: Active Member Role Status Dates Dr. Hesham Lao MD Family Provider Active Dr. Beka Bowie MD Primary Care Provider Active Team Status: Inactive Member Role Status Dates Dr. Beka Bowie MD Primary Care Provider Active Dr. Luis York MD Emergency Provider Active Team Status: Inactive Member Role Status Dates Dr. Beka Bowie MD Primary Care Provider, Refer ring Provider Active [place], [place] Attending Provider Active Team Status: Active Member Role Status Dates Dr. Beka Bowie MD Primary Care Provider Active Dr. Eric Flores MD Attending Provider, Referring Provider, Other Provider Active Team Status: Active Member Role Status Dates Dr. Beka Bowie MD Primary Care Provider Active Hesham [place] PRINCIPAL ACCOUNT CLERK, PRINCIPAL ACCOUNT CLERK-C Attending Provider Active Team Status: Inactive Member Role Status Dates Dr. Beka Bowie MD Primary Care Provider Active Dr. Luis York MD Attending Provider, Emergency Provider Active Team Status: Inactive Member Role Status Dates Dr. Beka Bowie MD Primary Care Provider Active Dr. Eric Flores MD Attending Provider, Referring Pro vider Active Team Status: Active Member Role Status Dates Dr. Beka Bowie MD Primary Care Provider Active Pollo Bond MD Emergency Provider Active Dr. Mary Lewis MD Admit Provider, At tending Provider, Other Provider Active Team Status: Active Member Role Status Dates Dr. Beka Bowie MD Primary Care Provider Active Pollo Bond MD Emergency Provider Active Dr. Mary Lewis MD Admit Provider, Attending Provid er Active Dr. Harvey Murphy MD Other Provider Active Team Status: Active Member Role Status Dates Dr. Beka Bowie MD Primary Care Provider Active Pollo Bond MD Emergency Provider Active Dr. Mary Lewis MD Admit Provider, Other Provider A ctive Dr. Harvey Murphy MD Attending Provider, Other Prov ider Active Dr. Maldonado Whitt , DO Other Provider Active Team Status: Active Member Role Status Dates Dr. Beka Bowie MD Primary Care Provider Active Dr. Luis Villeda MD Attending Provider Active Team Status: Active Member Role Status Dates Dr. Beka Bowie MD Primary Care Provider Active Pollo Bond MD Emergency Provider Active Dr. Mary Lewis MD Admit Provider, Other Provider A ctive Dr. Harvey Murphy MD Other Provider Active Dr. Maldonado Whitt DO Attending Provider, Other Provider Active Team Status: Inactive Member Role Status Dates Dr. Beka Bowie MD Primary Care Provider Active Pollo Bond MD Emergency Provider Active Dr. Mary Lewis MD Admit Provider, Other Provider A ctive Dr. Harvey Murphy MD Other Provider Active Dr. Maldonado Whitt DO Attending Provider Active Team Status: Inactive Member Role Status Dates Dr. Beka Bowie MD Primary Care P rovider, Attending Provider, Referring Provider Active Team Status: Inactive Member Role Status Dates Dr. Beka Bowie MD Primary Care Provider Active Dr. Anupam Zuleta MD Attending Provider, Referrin g Provider Active Team Status: Inactive Member Role Status Dates Dr. Beka Bowie MD Primary Care Provider, Refer ring Provider Active Flores Morel PA, [place] Attending Provider Active [employer] Patrol Officer Relationship Specialty Start Date End Date Beka Bowie [address] [place] [address] PCP - General 03/17/24 Team Status: Active Member Role Status Dates Dr. Beka Bowie MD Primary Care Provider Active Start: February 11, 2025 Dr. Jasbir Curry DO Emergency Provider Active Start: February 11, 2025 Dr. Mitchell Deras DO Admit Provider Active Start: February 11, 2025 Dr. Mitchell Deras DO Attending Provider Active Start: February 11, 2025 Federico Ramirez MD Other Provider Active Start: [facility] 2024 Dr. Willie Aguiar MD Other Provider Active Start: February 11, 2025 Ayla Todd MD Other Provider Active Start : February 11, 2025 Dr. Zeynep aDly DO Other Provider Active St art: February 11, 2025 Dr. sAia Barragan MD Other Provider Active Start: February 11, 2025 Dr. Eduardo Deal MD Other Provider Active Sta rt: February 11, 2025 Dr. Aleah Bradshaw MD Other Provider Active Start : February 11, 2025 Dr. Ricardo Thomas MD Other Provider Active Start: February 11, 2025 Dr. Rosario Covarrubias MD Other Provider Active Start : February 11, 2025 Dr. Anil Lema MD Other Provider Active Sta rt: February 11, 2025 Farzana Barth MD Other Provider Active Start : February 11, 2025 Dr. Mal Bishop MD Other Provider Active St art: February 11, 2025 Dr. Cele Padilla MD Other Provider Active Start : February 11, 2025 Dr. Roel Jasso MD Other Provider Active Sta rt: February 11, 2025 Dr. Kala Quiroz MD Other Provider Active Start: February 11, 2025 Dr. Luis Lucero MD Other Provider Active St art: February 11, 2025 Dr. Richard Mills MD Other Provider Active Star t: February 11, 2025 Dr. Herberth Granados MD Other Provider Active St art: February 11, 2025 Dr. Marissa Mars MD Other Provider Active Start: February 11, 2025 Grant Schrader MD Other Provider Active Start: February 11, 2025 Source Comments (unrecognize d section and content) In the event this informatio n is protected by the Federal Confidentiality of Alcohol and Drug Abuse Patient Records regulations: The Federal rules restrict any use of the information to criminally investigate or prosecute any alcohol or drug abuse patient.[facility] Reason for Visit (unrecogniz ed section and content) Reason Comments Eye Problem left eye x 2 days, d rainage and matting (unrecognized sect ion and content) No Status Records FoundNo Status Records Found INFORMATION SOURCE (unrecogn ized section and content) DATE CREATED AUTHOR 03/17/2024 [facility] DATE CREATED AUTHOR AUTHOR'S ELLEN NICOLAS 04/01/2025 [facility] FOR RECORDS PERTAINING TO PATIENTS WHO ARE [...] BE BASED ON THE PRIMARY CLINICAL RECORDS. [employer] provides no warranty or guarantee of the accuracy or completeness of information in this document.
[2025-07-05 20:56] LABS: Hematocrit 45.7 % (40-54); Hemoglobin 16.1 g/dL (13.0-16.5); Immature Granulocytes Count 0.060 X10^3/uL (0.0-0.0); Mean Corp Hgb Conc 35.2 g/dL (32-36); Mean Corpuscular Volume 84.6 fL (80-94); Mean Platelet Vol. 10.5 fl (6.2-12.0); NRBC Flagged by Analyzer 0 % (0-5); POSITIVE MORPHOLOGY YES; Platelet Count 267 K/mm3 (150-450); RBC Distribution Width CV 13.2 % (11.6-14.6); RBC Distribution Width SD 40.7 fl (35.1-43.9); Red Blood Count 5.40 M/mm3 (4.6-6.2); White Blood Count 14.2 K/mm3 (4.4-11.0)
--- NOTE | 2025-07-05 20:58 | RAD_ITS ---
PROCEDURE: CHEST 1 VIEW (PORTABLE) 07/05/2025 REASON FOR EXAM: CHEST PAIN TECHNIQUE: Frontal view of the chest. COMPARISON: 02/10/2025 FINDINGS: Hardware: None. Heart: Heart size is mildly enlarged. Lungs: Slight interval decrease in the diffuse pulmonary vascular congestion. No pneumothorax or sizable pleural effusion. Bones: The bones are unremarkable. RAD/Chest 1 View (Portable) IMPRESSION: Stable mild cardiomegaly with slightly decreased pulmonary vascular congestion. Reading [facility]
[2025-07-05 21:00] VITALS: BP 193/110; PULSE 97
[2025-07-05] MEDS: Nitroglycerin SL (ED/IMG/CATH) 0.4 MG TABLET SL ×2 (21:00→21:05)
[2025-07-05 21:03] LABS: Differential Indicated SCAN CRITERIA MET
[2025-07-05 21:05] VITALS: BP 173/106; PULSE 101
[2025-07-05 21:16] LABS: Red Cell Morphology NORM C+C NORMAL (NORM C&C)
[2025-07-05 21:25] LABS: Anion Gap 16 (5-15); BUN 14 mg/dL (4-19); BUN/Creat Ratio 15.6 RATIO (10-20); Calcium,Total 10.0 mg/dL (7.6-11.0); Carbon Dioxide 22.7 mmol/L (21.0-32.0); Chloride 101 mmol/L (98-108); Estimated Creatinine Clearance 108.20 ml/min (50-250); Glucose 315 mg/dL (70-99); Potassium 3.5 mmol/L (3.3-5.1); Troponin T High Sensitivity 18 ng/L (<=22)
[2025-07-05 21:30] VITALS: BP 182/114; PULSE 95; RESP 29; O2SAT 95
[2025-07-05 22:00] VITALS: BP 191/111; PULSE 86; RESP 27; O2SAT 92
[2025-07-05 23:00] VITALS: BP 181/111; PULSE 80; RESP 20; TEMP 36.9; O2SAT 96
[2025-07-05 23:03] LABS: Troponin T High Sens 2 HR 27 ng/L (<=22)
--- NOTE | 2025-07-05 23:04 | ED.VIS.CHEST ---
HPI History of Present Illness Chief Complaint: Chest Pain Informant: patient Onset/Context/Timing Onset: Today (Approximately 20 minutes prior to arrival) Activity at onset: sudden Timing: Continuous Quality: Positive for Tightness and - (Cramping) Location: Substernal Worsened By: Nothing Relieved By: Nothing Associated Symptoms: Positive for Nausea, Vomiting, Diaphoresis, Dyspnea and Palpitations; Negative for Cough, Fever, Lightheadedness or Acid Reflux Narrative Narrative: Patient presents with chest pain that began approximately 15 to 20 minutes prior to arrival. Patient states it began rather suddenly. Patient describes it as tightness. Patient states it is constant. Patient also states it feels like there is some cramping in his chest. Patient states it is over the substernal area. Patient states nothing makes it better and nothing makes it worse. Patient admits to some shortness of breath and diaphoresis. Patient also admits to some nausea and vomiting. Patient admits to some palpitations. Patient denies any cough or fevers. CVD Risk Factors: Positive for Hypertension, Diabetes, Family History 1' </=55 and Smoking; Negative for Hypercholesterolemia PE Risk Factors: Positive for Prior DVT or PE; Negative for Recent Travel/Surgery, Recent Immobilization, Cancer or OCP + Smoking + >/=35 PFSH PFS Medical History CVA (cerebral vascular accident) Obesity (BMI 30-39.9) Vitamin D deficiency History of DVT (deep vein thrombosis) Respiratory insufficiency Elevated troponin Acute bronchitis COPD exacerbation Congestive heart failure Acute sinusitis, unspecified Left shoulder pain Insulin dependent diabetes mellitus Coronary artery disease Essential hypertension Cluster headache Migraine Headache Diabetes Obesity Community acquired pneumonia Smoker Asthma Myocardial infarct Ischemic cardiomyopathy Obesity (BMI 30.0-34.9) Chronic obstructive pulmonary disease (COPD) Nicotine dependence COPD (chronic obstructive pulmonary disease) Hyperlipidemia History of non-ST elevation myocardial infarction (NSTEMI) (11/22/20) Atherosclerosis of [place] coronary artery of [place] heart without angina pectoris Non-ST elevation AR (NSTEMI) Home Medications ?Medication ?Instructions ?Recorded ?Last Taken ?Type aspirin 81 mg chewable tablet 81 mg PO DAILY heart health 04/27/22 02/10/25 History loratadine 10 mg tablet 10 mg PO DAILY PRN allergies 06/26/22 Unknown History insulin degludec 200 unit/mL (3 50 unit (0.25 mL) subcut QHS blood 12/28/23 02/09/25 Rx mL) subcutaneous pen (Tresiba sugar 3 months #22.5 mL FlexTouch U-200 insulin) [facility] 10/27/24 02/10/25 Rx tabs clonidine HCl 0.1 mg tablet 0.1 mg PO BID blood pressure #180 12/15/24 02/10/25 Rx tabs furosemide 20 mg tablet (Lasix) 60 mg (3 x 20 mg) PO DAILY #270 01/15/25 02/10/25 Rx tabs guaifenesin 1,200 mg tablet, 600 mg PO BID 02/10/25 02/10/25 History extended release 12 hr (Mucus Relief ER) insulin lispro 100 unit/mL 20 unit subcut TIDAC PRN DIABETES 02/10/25 02/10/25 History subcutaneous pen (Humalog KwikPen (U-100) Insulin) albuterol sulfate 90 mcg/actuation 2 puff inhalation 4X/DAY PRN 02/11/25 Unknown Rx aerosol inhaler Shortness Of Breath #8.5 grams atorvastatin 80 mg tablet 80 mg PO QHS cholesterol #90 tabs 02/11/25 Unknown Rx amlodipine 10 mg tablet 10 mg PO DAILY blood pressure #90 02/12/25 Unknown Rx tabs clopidogrel 75 mg tablet (Plavix) 75 mg PO DAILY anti platelet #90 02/12/25 Unknown Rx tabs isosorbide mononitrate 60 mg 60 mg PO BID heart #180 TABLETS 02/12/25 Unknown Rx tablet,extended release 24 hr ranolazine 1,000 mg 1,000 mg PO BID heart #60 tabs 02/12/25 Unknown Rx tablet,extended release,12 hr nitroglycerin 0.4 mg sublingual 0.4 mg sublingual Q5-15M chest 06/01/25 Unknown Rx tablet pain #25 tabs lisinopril 20 mg tablet 20 mg PO BID blood pressure 07/05/25 Unknown History Allergy/AdvReac Type Severity Reaction Status Date / Time amoxicillin trihydrate (From Allergy Rash Verified 07/05/25 20:31 Augmentin) potassium clavulanate (From Allergy Rash Verified 07/05/25 20:31 Augmentin) ticagrelor (From Brilinta) Allergy Shortness Verified 07/05/25 20:31 of breath codeine AdvReac Nausea Verified 07/05/25 20:31 Family History Sister Myocardial infarction, Onset Age: 41 Diabetes Mother COPD (chronic obstructive pulmonary disease) Asthma Rheumatoid arthritis CVA (cerebral vascular accident) Hypertension Grandmother Diabetes Surgical History History of coronary artery stent placement (12/25/23) History of hernia repair (2008) History of umbilical hernia repair (1971) History of neck surgery History of appendectomy Social History household members: spouse housing: house Smoking Status: Current every day smoker tobacco type: cigarettes Tobacco: How many years used: 20 Electronic Cigarette Use: not used second hand exposure: Yes alcohol intake: current alcohol intake frequency: 0-2 drinks per day Alcohol type: beer substance use type: does not use caffeine: Yes Type: carbonated beverages Number of servings: 2 and tea Number of servings: 6 what type of physical activity do you participate in: none ROS ROS ED Constitutional Constitutional ED: Denies chills or fever(s) Eyes Eyes: Denies blurry vision or change in vision ENT ENT ED: Denies rhinorrhea or sore throat Cardiovascular Cardiovascular: Reports chest pain; Denies palpitations Respiratory/Chest Respiratory/Chest: Denies cough or dyspnea Gastrointestinal Gastrointestinal: Denies nausea or vomiting Genitourinary Genitourinary ED: Denies dysuria or hematuria Musculoskeletal Musculoskeletal: Reports neck pain; Denies back pain Integumentary Denies abscess or rash Neurologic Neurologic: Reports headache(s); Denies weakness Allergic/Immunologic Allergic/Immunologic ED: Denies mouth swelling or urticaria EXAM Physical Exam Const Vital Signs: 07/05/25 20:31 07/05/25 20:44 07/05/25 21:00 Temperature 98 F Temperature Source Oral Pulse Rate 114 H 97 Respiratory Rate 22 H Blood Pressure 237/126 H 193/110 H Blood Pressure Mean 163 Pulse Ox 98 Oxygen Delivery Method Nasal Cannula 07/05/25 21:05 07/05/25 21:30 07/05/25 22:00 Temperature Temperature Source Pulse Rate 101 H 95 86 Respiratory Rate 29 H 27 H Blood Pressure 173/106 H 182/114 H 191/111 H Blood Pressure Mean 136 137 Pulse Ox 95 92 Oxygen Delivery Method Room Air Room Air Positive well nourished and well developed General Appearance ED: well developed and NAD HEENT Reports moist mucous membranes Neck supple and no JVD Chest Wall palpation of chest normal Resp normal respiratory effort and clear to auscultation bilaterally Cardio regular rate and regular rhythm GI soft to palpation, non-tender and non-distended Extremity normal to inspection General Extremety ED: Negative for edema or tenderness General Extremity: Negative for edema Neuro oriented x3, CN's II-XII intact bilaterally and no sensory deficits noted Sensorium / Orientation: awake and alert Motor Exam: strength 5/5 throughout Psych mental status grossly normal Mood & Affect: anxious Heart Score History: Slightly/Non-Suspicious ECG: Nonspecific Repolarization Age: >45 - <65 years Risk Factors: >/= 3 Risk Factors or History of CAD Troponin: >1 - <3 Normal Limit Score: 5 MDM MDM MDM Narrative Medical decision making narrative: Differential diagnosis includes cardiac dysrhythmia, cardiac ischemia, pneumonia, bronchitis, electrolyte abnormality, gastroesophageal reflux disease, and anxiety. EKG will be obtained to assess for cardiac dysrhythmia and cardiac ischemia. Chest x-ray will be obtained to assess for pneumonia or bronchitis. CBC will be obtained to assess for leukocytosis and anemia. Basic metabolic profile will be obtained to assess for electrolyte abnormality and renal function. High-sensitivity troponin will be obtained to assess for cardiac ischemia. 2-hour repeat high-sensitivity troponin will be obtained to assess for ongoing cardiac ischemia. History & Record Review Additional record(s) reviewed:: Prior outpatient record and Prior labs Lab Data Attestation: I reviewed the patient's lab results. Lab results narrative: CBC was reviewed. There is a mild leukocytosis of 14.2. The remainder is within normal limits. Basic metabolic profile was reviewed and showed an elevated glucose at 315. The remainder is within normal limits. Initial high-sensitivity troponin was reviewed and was normal at 18. 2-hour repeat high-sensitivity troponin was reviewed and was elevated at 27. Labs: Laboratory Results - last 24 hr 07/05/25 07/05/25 20:35 22:32 WBC 14.2 H RBC 5.40 Hgb 16.1 Hct 45.7 MCV 84.6 MCH 29.8 MCHC 35.2 RDW Std Deviation 40.7 RDW Coeff of Narcisa 13.2 Plt Count 267 MPV 10.5 Immature Gran % (Auto) 0.400 Neut % (Auto) 55.7 Lymph % (Auto) 31.6 Sevier % (Auto) 10.1 H Eos % (Auto) 1.6 Baso % (Auto) 0.6 Absolute Neuts (auto) 7.9 H Absolute Lymphs (auto) 4.50 Nucleated RBC % 0 Platelet Estimate ADEQUATE RBC Morphology NORM C+C Sodium 139 Potassium 3.5 Chloride 101 Carbon Dioxide 22.7 Anion Gap 16 H BUN 14 Creatinine 0.93 Estim Creat Clear Calc 108.20 Est GFR (MDRD) Non-Af 99 BUN/Creatinine Ratio 15.6 Glucose 315 H Calcium 10.0 Troponin T High Sens 18 D Troponin T Hi Sens 2 Hr 27 H Radiography Chest X-Ray - ED: 1 View, Read by ED Physician, Read by Radiologist, No Acute Disease and Cardiomegaly Diagnostic Testing: Clinical Impression(s) from Imaging Studies Chest X-Ray 07/05/25 20:58 IMPRESSION: Stable mild cardiomegaly with slightly decreased pulmonary vascular congestion. Reading Location: [facility] Portable 1 view chest x-ray was obtained. On my independent interpretation, lung moore are clear. There is cardiomegaly. Bony thorax is normal. There is no acute process noted. Radiologist also interpreted the x-ray and agrees. EKG Initial EKG: Attestation: I personally reviewed and interpreted this EKG as follows: Interpretation: Sinus Tachycardia (104) and Non-Specific ST Changes Comments: EKG was obtained. On my independent interpretation, it showed a sinus tachycardia with a rate of 104. NC interval, QRS interval, and QTc intervals were all normal. There is left axis deviation at -28. There are nonspecific ST-T wave changes. Prior EKG tracings: available for review Prior: Unchanged Management Discussion w/another healthcare provider: Hospitalist Treatment and Re-Evaluation :: Patient was given aspirin and sublingual nitroglycerin here. Patient was given injection of morphine. Patient was given a dose of hydralazine for his blood pressure. Patient was advised of his findings. Patient has a HEART score of 5. Due to the increased delta troponin of 9, I recommended admission to the hospital. Patient is agreeable with this. Case was discussed with the hospitalist. He will admit the patient to PCU. Patient understood and was agreeable with the plan. All questions were answered. Discharge Plan Triage Chief Complaint: Chest Pain ED Provider: Brennon Mckeon Dx/Rx/DC Orders Clinical Impression: Chest pain, Ischemic cardiomyopathy, Essential hypertension, Diabetes Prescriptions: No Action insulin degludec [Tresiba FlexTouch U-200] 200 unit/mL (3 mL) insulin pen 50 unit SUBCUT QHS 90 Days Qty: 22.5 1RF aspirin 81 MG tablet,chewable 81 mg PO DAILY loratadine 10 mg tablet 10 mg PO DAILY PRN (Reason: allergies) lisinopril 20 mg tablet 20 mg PO BID insulin lispro [Humalog KwikPen Insulin] 100 unit/mL Insulin Pen 20 unit subcut TIDAC PRN (Reason: DIABETES) guaifenesin [Mucus Relief ER] 1,200 mg Tablet Extended Release 12hr 600 mg PO BID albuterol sulfate 90 mcg/actuation HFA aerosol inhaler 2 puff INHALATION 4X/DAY PRN (Reason: Shortness Of Breath) Qty: 8.5 0RF carvedilol 25 mg tablet 25 mg PO BIDCM Qty: 180 3RF clonidine HCl 0.1 mg tablet 0.1 mg PO BID Qty: 180 3RF furosemide [Lasix] 20 mg tablet 60 mg PO DAILY Qty: 270 3RF atorvastatin 80 mg tablet 80 mg PO QHS Qty: 90 0RF ranolazine 1,000 mg tablet extended release 12 hr 1,000 mg PO BID Qty: 60 11RF isosorbide mononitrate 60 mg tablet extended release 24 hr 60 mg PO BID Qty: 180 3RF clopidogrel [Plavix] 75 mg tablet 75 mg PO DAILY Qty: 90 3RF amlodipine 10 mg tablet 10 mg PO DAILY Qty: 90 3RF nitroglycerin 0.4 mg tablet, sublingual 0.4 mg sublingual Q5-15M Qty: 25 3RF Primary Care Provider: Sivan Bowie Referrals: Sivan Bowie MD [Primary Care Provider] - Print Language: Citizen Of [place] Disposition Disposition: Acute Care Hospital [facility]
--- NOTE | 2025-07-05 23:28 | HP.PCM.HOS_ITS ---
[facility] - General General Date of Admission: 07/05/25 Date of Service: 07/05/25 Chief Complaint: Chest Pain. HPI Narrative LATONYA ELDER, is a 54 M with a past medical history of with a past medical history of essential hypertension; on carvedilol, amlodipine, lisinopril and clonidine, hyperlipidemia; on high-dose atorvastatin, obesity; with BMI of 35.4 this admission, IDDM; of unknown control on degludec and insulin lispro 20U TID, history of HONK, history of tobacco abuse (quit 09/2024); with subsequent asthma/COPD, CAD; s/p stent (2003) and NSTEMI (2016, 2018 & 2020) on BASA and clopidogrel, Ischemic Cardiomyopathy; with chronic chest pain on ranolazine, ISMO and prn NTG, history of CHF; with peripheral edema, history of bilateral LE DVT's; previously on apixaban, history of sepsis, history of appendectomy, history of hernia; s/p repair (2008), remote history of umbilical hernia repair (1971), history of migraine & cluster headaches, history of sinusitis, history of vitamin D deficiency, OA; with chronic Left shoulder pain and history of neck surgery plus history of admission here from October 12, 2024 to October 13, 2024 for treatment of AE COPD with Acute Bronchitis, mild AE CHF with elevated troponin and Respiratory Insufficiency and recent admission here from February 10, 2025 to February 11, 2025 with CTA of the head and neck with IV contrast revealing Large Vessel Occlusion of the A1 segment of the Right anterior cerebral artery with retrograde filling via the anterior communicating artery with small caliber distal Right ARELY with radiologist recommending neuro IR consultation for discussion of endovascular thrombectomy versus anticoagulation and ~50% stenosis of the Left carotid artery by NASCET criteria with CT of the brain without contrast revealing ~1.9 cm x ~1.1 cm x ~1.3 cm hypodense area seen within the deep white matter along the Right lateral convexity which was new since prior examination with differential possibilities including: Acute/subacute CVA versus intracranial mass with MRI of the brain recommended for further evaluation at this complicated by Uncontrolled Hypertension of 186/124 mmHg and mild AE COPD with Acute Bacterial Bronchitis who presents to [facility] ER complaining of Chest Pain. Mr. Elder reports his acute symptoms began ~20 minutes prior to admission with the sudden-onset of chest pain that was substernal, tight and constant with an additional feeling of cramping in his chest with nothing seeming to make the pain better or worse. He also admits to associated SOB, diaphoresis, palpitations, neck pain and a golf ball sized area of swelling under his Right mandible that started earlier today with headache, nausea and vomiting causing bilious emesis. He denies related fever, chills, runny nose, sore throat, ear pain, visual changes, dysuria, hematuria, paresthesias, focal neurologic weakness or rash. In the ER he was noted to have a highly elevated initial blood pressure of 237/126 mmHg consistent with suspected Hypertensive Emergency with Chest Pain and an elevated second troponin of 27 ng/L with a corresponding CXR that revealed stable mild cardiomegaly with slightly decreased pulmonary vascular congestion complicated by Hyperglycemia of 315 mg/dL present on admission in the setting of previously known DM-2 and clinical evidence of Parotitis with Leukocytosis of 14.2K present on admission with patient ordered CT scan of the head/neck with patient started on IV clindamycin and he was then admitted to the PCU under observation status for ongoing care for a stay that is expected to be less than 2 midnights. [facility] Medical History (Updated 07/06/25 @ 00:[address] Mitchell Deras, DO) Obesity (BMI 30-39.9) CVA (cerebral vascular accident) Vitamin D deficiency History of DVT (deep vein thrombosis) Respiratory insufficiency Elevated troponin Acute bronchitis COPD exacerbation Congestive heart failure Acute sinusitis, unspecified Left shoulder pain Insulin dependent diabetes mellitus Coronary artery disease Essential hypertension Cluster headache Migraine Headache Diabetes Obesity Community acquired pneumonia Smoker Asthma Myocardial infarct Ischemic cardiomyopathy Obesity (BMI 30.0-34.9) Chronic obstructive pulmonary disease (COPD) Nicotine dependence COPD (chronic obstructive pulmonary disease) Hyperlipidemia History of non-ST elevation myocardial infarction (NSTEMI) (11/22/20) Atherosclerosis of [place] coronary artery of [place] heart without angina pectoris Non-ST elevation [place] (NSTEMI) Home Medications ?Medication ?Instructions ?Recorded ?Last Taken ?Type aspirin 81 mg chewable tablet 81 mg PO DAILY heart hea lth 04/27/22 02/10/25 History loratadine 10 mg tablet 10 mg PO DAILY PRN allergies 06/26/22 Unknown History insulin degludec 200 unit/mL (3 50 unit (0.25 mL) subc ut QHS blood 12/28/23 02/09/25 Rx mL) subcutaneous pen (Tresiba sugar 3 months #22.5 mL FlexTouch U-200 insulin) carvedilol 25 mg tablet 25 mg PO BIDCM heart health #180 10/27/24 02/10/25 Rx tabs clonidine HCl 0.1 mg tablet 0.1 mg PO BID blood pressu re #180 12/15/24 02/10/25 Rx tabs furosemide 20 mg tablet (Lasix) 60 mg (3 x 20 mg) PO D AILY #270 01/15/25 02/10/25 Rx tabs guaifenesin 1,200 mg tablet, 600 mg PO BID 02/10/25 History extended release 12 hr (Mucus Relief ER) insulin lispro 100 unit/mL 20 unit subcut TIDAC PRN DI ABETES 02/10/25 02/10/25 History subcutaneous pen (Humalog KwikPen (U-100) Insulin) albuterol sulfate 90 mcg/actuation 2 puff inhalation 4 X/DAY PRN 02/11/25 Unknown Rx aerosol inhaler Shortness Of Breath #8.5 gra ms atorvastatin 80 mg tablet 80 mg PO QHS cholesterol #90 tabs 02/11/25 Unknown Rx amlodipine 10 mg tablet 10 mg PO DAILY blood pressur e #90 02/12/25 Unknown Rx tabs clopidogrel 75 mg tablet (Plavix) 75 mg PO DAILY anti platelet #90 02/12/25 Unknown Rx tabs isosorbide mononitrate 60 mg 60 mg PO BID heart #180 T ABLETS 02/12/25 Unknown Rx tablet,extended release 24 hr ranolazine 1,000 mg 1,000 mg PO BID heart #60 ta bs 02/12/25 Unknown Rx tablet,extended release,12 hr nitroglycerin 0.4 mg sublingual 0.4 mg sublingual Q5-1 5M chest 06/01/25 Unknown Rx tablet pain #25 tabs lisinopril 20 mg tablet 20 mg PO BID blood pressure 07/05/25 Unknown History Allergy/AdvReac Type Severity Reaction Status Date / Time amoxicillin trihydrate (From Allergy Rash Verified 07/05/25 20:31 Augmentin) potassium clavulanate (From Allergy Rash Verified 07/05/25 20:31 Augmentin) ticagrelor (From Brilinta) Allergy Shortness Verified 07/05/25 20:31 of breath codeine AdvReac Nausea Verified 07/05/25 20:31 Family History Sister Myocardial infarction, Onset Age: 41 Diabetes Mother COPD (chronic obstructive pulmonary disease) Asthma Rheumatoid arthritis CVA (cerebral vascular accident) Hypertension Grandmother Diabetes Surgical History History of coronary artery stent placement (12/25/23) History of hernia repair (2008) History of umbilical hernia repair (1971) History of neck surgery History of appendectomy Social History household members: spouse housing: house Smoking Status: Current every day smoker tobacco type: cigarettes Tobacco: How many years used: 20 Electronic Cigarette Use: not used second hand exposure: Yes alcohol intake: current alcohol intake frequency: 0-2 drinks per day Alcohol type: beer substance use type: does not use caffeine: Yes Type: carbonated beverages Number of servings: 2 and tea Number of servings: 6 what type of physical activity do you participate in: none ROS ROS Narrative Review of Systems: Constitutional: Patient denies fever or chills. Eyes: Patient denies changes in vision or discharge from eyes. ENT: Patient denies runny nose, sore throat or ear pain. Resp: Patient admits to SOB but he denies wheezing or worsening cough. CV: Patient admits to chest pain, palpitations and diaphoresis as per HPI. GI: Patient admits to nausea and vomiting but he denies abdominal pain, diarrhea or constipation. : Patient denies dysuria, hematuria or urinary frequency. MSK: Patient admits to neck pain but he denies back pain. Skin: Patient denies rash, abscess, wounds or jaundice. Psych: Patient denies symptoms of uncontrolled depression or anxiety. Neuro: Patient admits to headache but he denies paresthesias or focal neurologic deficits. Allergy: Patient denies lip swelling, tongue swelling or urticaria. Hematology: Patient denies easy bleeding or easy bruisability. Endocrinology: Patient denies polyuria, polydipsia, polyphagia or heat/cold intolerance. 14 point ROS otherwise negative except for positives noted above in HPI. Vital Signs Vital Signs Vital Signs: 07/05/25 20:31 07/05/25 20:44 07/05/25 21:00 Temperature 98 F Temperature Source Oral Pulse Rate 114 H 97 Respiratory Rate 22 H Blood Pressure 237/126 H 193/110 H Blood Pressure Mean 163 Pulse Ox 98 Oxygen Delivery Method Nasal Cannula 07/05/25 21:05 07/05/25 21:30 07/05/25 22:00 Temperature Temperature Source Pulse Rate 101 H 95 86 Respiratory Rate 29 H 27 H Blood Pressure 173/106 H 182/114 H 191/111 H Blood Pressure Mean 136 137 Pulse Ox 95 92 Oxygen Delivery Method Room Air Room Air 07/05/25 23:00 07/05/25 23:00 Temperature 98.5 F Temperature Source Pulse Rate 80 80 Respiratory Rate 20 H 20 H Blood Pressure 181/111 H 181/111 H Blood Pressure Mean 134 134 Pulse Ox 96 96 Oxygen Delivery Method Weight Weight: 232 lb 12.93 oz Body Mass Index (BMI) 35.4 Physical Exam Const alert, oriented x3 and no apparent distress Constitutional Narrative: Obese with chronically ill but nontoxic appearance. General Appearance: cooperative HEENT normocephalic, head/scalp atraumatic, hearing grossly normal bilaterally and moist oral mucous membranes Eyes PERRL, EOMs intact bilaterally and conjunctivae normal Neck no lymphadenopathy, supple and no JVD Resp normal respiratory effort, no retractions, no use of accessory muscles and clear to auscultation bilaterally Cardio regular rate and regular rhythm GI normal to inspection, nondistended, normoactive bowel sounds, soft to palpation, non-tender and non-distended Extremity normal to inspection, full ROM and no clubbing, cyanosis or edema Skin Skin Narrative: Patient has no evidence of rash, abscess, wounds or jaundice. Neuro oriented x3, CN's II-XII intact bilaterally, moves all extremities and no focal motor deficits Sensorium / Orientation: awake, alert, oriented to person, oriented to place and oriented to time Speech: speech normal Psych affect normal Results Medical Records Data Attestation: I reviewed the patient's medical records Lab / Micro Data Attestation: I reviewed the patient's lab results. 07/05/25 20:35 07/05/25 20:35 Labs: Laboratory Results - last 24 hr 07/05/25 20:35: WBC 14.2 H, RBC 5.40, Hgb 16.1, Hct 45.7, MCV 84.6, MCH 29.8, MCHC 35.2, RDW Std Deviation 40.7, RDW Coeff of Narcisa 13.2, Plt Count 267, MPV 10.5, Immature Gran % (Auto) 0.400, Neut % (Auto) 55.7, Lymph % (Auto) 31.6, M juan % (Auto) 10.1 H, Eos % (Auto) 1.6, Baso % (Auto) 0.6, Absolute Neuts (auto) 7.9 H, Absolute Lymphs (auto) 4.50, Nucleated RBC % 0, Platelet Estimate ADEQUATE, RBC Morphology NORM C+C, Sodium 139, Potassium 3.5, Chloride 101, Carbon Dioxide 22.7, Anion Gap 16 H, BUN 14, Creatinine 0.93, Estim Creat Clear Calc 108.20, Est GFR (MDRD) Non-Af 99, BUN/Creatinine Ratio 15.6, Glucose 315 H, Calcium 10.0, Troponin T High Sens 18 D 07/05/25 22:32: Troponin T Hi Sens 2 Hr 27 H Imaging Radiology Impression Chest X-Ray 07/05/25 20:58 IMPRESSION: Stable mild cardiomegaly with slightly decreased pulmonary vascular congestion. Reading Location: [facility] Assessment & Plan Assessment/Plan (1) Hypertensive emergency: (2) Chest pain: QUALIFIERS: Chest pain type: unspecified Qualified Code(s): R07.9 - Chest pain, unspecified (3) Elevated troponin: (4) History of non-ST elevation myocardial infarction (NSTEMI): (5) Ischemic cardiomyopathy: (6) Cardiac LV ejection fraction 21-30%: (7) Hyperglycemia due to type 2 diabetes mellitus: QUALIFIERS: Diabetes mellitus terminal computer operator insulin use: with terminal computer operator use Qualified Code(s): E11.65 - Type 2 diabetes mellitus with hyperglycemia; Z79.4 - assisted (current) use of insulin (8) Parotitis: (9) Leukocytosis: QUALIFIERS: Leukocytosis type: unspecified Qualified Code(s): D 72.829 - Elevated white blood cell count, unspecified (10) Obesity (BMI 30-39.9): PLAN: Plan 1. Highly elevated initial blood pressure of 237/126 mmHg consistent with suspected Hypertensive Emergency with Chest Pain and an elevated second troponin of 27 ng/L in the setting of previously known CAD; s/p stent (2004) and NSTEMI (2016, 2018 & 2020) on BASA and clopidogrel plus Ischemic Cardiomyopathy; with LVEF ~25% with stage III diastolic dysfunction and severe global HK of the LV on recent echocardiogram (02/11/2025) with chronic chest pain on ranolazine - Admit to PCU under observation status. Continue BASA, clopidogrel and statin as before. Serialize troponin. Check chemical stress test in AM to evaluate for potential underlying ischemia. Restart home antihypertensive regimen plus give prn IV hydralazine for systolic blood pressure > 160 mmHg. Check TSH, UDS and ASHLEY. Give ondansetron IV prn for nausea and vomiting. Give acetaminophen prn for [id number] (level 1-5/10) pain or fever. Give morphine IV prn for severe (level 6-10/10) pain. 2. Hyperglycemia of 315 mg/dL present on admission in the setting of previously known IDDM complicating #1 - Keep NPO for now. Cut long-acting insulin dose by ~30% to prevent hypoglycemia. Check FSBS q. 6 hours plus lowest-intensity SSI. Check HgbA1c to objectively assess quality of diabetic control. 3. Clinical evidence of Parotitis with Leukocytosis of 14.2K present on admission with no overt signs of infection at this time due to likely acute stress response arising from #1 - Check CT scan of the head/neck with contrast to confirm suspicion and start IV clindamycin and recheck CBC in AM to follow trend. 4. Obesity; with BMI of 35.4 this admission adding to the burden of disease outlined from #1 - #3 - Weight loss will be recommended. Check TSH. This complicates his case and may hamper recovery. 5. 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 with retrograde filling via the anterior communicating artery with small caliber distal Right ARELY with radiologist recommending neuro IR consultation for discussion of endovascular thrombectomy versus anticoagulation and ~50% stenosis of the Left carotid artery by NASCET criteria with CT of the brain without contrast revealing ~1.9 cm x ~1.1 cm x ~1.3 cm hypodense area seen within the deep white matter along the Right lateral convexity which was new since prior examination with differential possibilities including: Acute/subacute CVA versus intracranial mass with MRI of the brain recommended for further evaluation at this complicated by Uncontrolled Hypertension of 186/124 mmHg and mild AE COPD with Acute Bacterial Bronchitis - Noted. 6. Hyperlipidemia; on high-dose atorvastatin - Resume statin and check Lipid Profile in light of #1. 7. History of tobacco abuse (quit 09/2024); with subsequent asthma/COPD - Stable with no evidence of acute flare at this time. Continue prn and scheduled nebulizers/inhalers. 8. History of HONK - Noted. 9. History of CHF; with peripheral edema - Noted. 10. History of bilateral LE DVT's; previously on apixaban - Apparently stable with no evidence of recurrence at this time. 11. History of sepsis - Noted. 12. History of appendectomy - Noted. 13. History of hernia; s/p repair (2008) - Noted. 14. Remote history of umbilical hernia repair (1971) - Noted. 15. History of migraine & cluster headaches - We will follow pain regimen and scales outlined in #1. 16. History of sinusitis - Noted. 17. History of vitamin D deficiency - Check vitamin D level. 18. OA; with chronic Left shoulder pain and history of neck surgery - Stable. 19. DVT prophylaxis - Enoxaparin 40 mg sq daily plus SCD's. Total time: Approximately (but not less than) 85 minutes. Charges/Coding Visit Charges OBSV E&M: [id number] Observ/hosp same date L3
--- OUTSIDE RECORDS SUMMARY | 2025-07-05 23:51 | XMS RPT_ITS | CCD ---
Author Organization [facility] CliniSypr Care Team Providers Care Cloth Folder Machine Name Role Phone MD Flores Cyril S Unavailable Jesika INTERNAL SALESPERSON, Hesham Sharma Unavailable Valeriano Weir Unavailable Unavailable MD Flores Cyril S Unavailable Valeriano Weir Unavailable Unavailable VETO Liang, Crista Duran Unavailable Unavailabl e Dr. Beka Bowie Primary Care Provider [phone] Dr. Beka Bowie Referring Provider [phone] Shimon INTERNAL SALESPERSON, INTERNAL SALESPERSON-C Mare Attending Provider Shimon VICTOR, INTERNAL SALESPERSON-C Mare Referring Provider Shimon VICTOR, INTERNAL SALESPERSON-C Mare Other Provider [phone] Dr. Eric [...] Dr. Beka Bowie Referring Provider [phone] Dr. Fran Yang Attending Provider Maria Teresa [place], [place] [...] Provider Dr. Eric Flores Other Provider Roof INTERNAL SALESPERSON, INTERNAL SALESPERSON-Yung Sharma Attending Provider MD [facility] [...] 00 Dr. Eric Flores Other Provider Jesika INTERNAL SALESPERSON, INTERNAL SALESPERSON-Yung Sharma Attending Provider MD [facility] [...] Unavailable Dr. Zeynep Daly DO Other Provider [phone] Laurel EVANGELISTA, Dr. Betancourt Other Provider Say EVANGELISTA, Dr. Clark Other Provider Augustine EVANGELISTA, Dr. Bullard Other Provider [phone] William EVANGELISTA, Dr. Silva Other Provider Satish EVANGELISTA, Dr. Douglass Other Provider Torey EVANGELISTA, Dr. Ma Other Provider Lary EVANGELISTA, Farzana Other Provider Edna EVANGELISTA, Dr. Resendez Other Provider Randy EVANGELISTA, Dr. Oakley Other Provider Romero EVANGELISTA, Dr. Sevilla Other Provider [phone] Richie EVANGELISTA, Dr. Kala Barnes Other Provider [phone] Nic EVANGELISTA, Dr. Smith Other Provider [phone] Gene EVANGELISTA, Dr. Ramos Other Provider [phone] Darwin EVANGELISTA, Dr. Kevin Other Provider Jerad EVANGELISTA, Dr. Ann Other Provider Unavailable Raciel EVANGELISTA, Grant Other Provider Unavailable Dr. Mitchell Deras DO Other Provider Unavail able Dr. Brennon Juarez DO Attending Provider [phone] Brennon Juarez DO Other Provider [phone] Sandra EVANGELISTA, Dr. Reyes Attending Provider [phone] Oleghe, Efewongbe Primary Care Unavailable Brennon Mckeon [...] Primary Care Unavailable Mitchell Deras Referring Unavailable [facility] Unavailable Brennon Coronado Attending Unavailable Eric Flores Attending Unavailable [facility] Unavailable Brennon Juarez Referring Unavailable Allergies Allergy Classification Reported Allergen(s) Allergy Type Date of Onset Reaction(s) Facility (20 sources) amoxicillin; Translations: [AMOXICILLIN] drug allergy 5 Vomiting [facility] Work Phone: (9 sources) amoxicillin / clavulanate drug allergy 7 severe rash [facility] Work Phone: (20 sources) codeine; Translations: [CODEINE] drug allergy 5 GI Upset [facility] Work Phone: (14 sources) Amoxicillin; Translations: [amoxicillin trihydrate] Drug Allergy 2 [facility] (14 sources) potassium clavulanate; Translations: [potassium clavulanate] Allergy to substance 2 [facility] (5 sources) Ticagrelor Drug Allergy 4 Shortness of Breath [facility] (1 source) Ticagrelor Drug Allergy 5 [facility] Repository Medications Current Medications Medication Drug Class(es) Dates Sig (Normalized) Sig (Original) [id number] 200 actuat albuterol 0.09 mg/actuat metered dose [...] TBEC One tablet by mouth daily ASPIRIN [id number] Suly Yoder RN Start: 12-12-2016 End: 04-27-2022 take 1 tablet by mouth once daily Aspirin 81 MG tablet,chewable Active 81 mg PO DAILY April 27, 2022 9:58am brompheniramine maleate 0.4 mg/ml / dextromethorphan hydrobromide 2 mg/ml / pseudoephedrine hydrochloride 6 mg/ml oral solution (1 source) alpha-Adrenergic Agonist, Uncompetitive C-siksbq-U-aspartate Receptor Antagonist, Sigma-1 Agonist Start: 10-29-2018 take 5 mL by mouth four times daily as needed Bgukrvkcjkmynxd-Kubhnnddx-MH (BROMFED DM) 2-30-10 mg/5 mL syrup Indications: [...] Active Fluticasone-Umecl idin-Vilanter (1 source) Start: 06-16-2021 Nelvfcujzfg-Bytiaxlqf-Syrdnt e r Active 1 INH INHALATION DAILY [...] the information source for Protocol details. Insulin [place] (Disposable) (1 source) Start: 05-25-2021 Insulin Needle [...] 12:00am May 01, 2021 9:03am polymyxin b 59199 unt/ml / trimethoprim 1 mg/ml ophthalmic solution [...] oral tablet (20 sources) Dihydropyridine Calcium Channel Crhisti Start: 10-14-2019 End: 06-25-2023 take 1 tablet [...] One tablet by mouth daily AMLODIPINE BESYLATE [id number] Hesham Sharma Jesika INTERNAL SALESPERSON apixaban 5 mg oral tablet (2 sources) [...] 2 puffs twice daily BUDESONIDE-FORMOT CHASE FUMARATE [id number] Suly Yoder RN Start: 12-22-2016 SYMBICORT 80-4 .5 MCG/ACT AERO inhale 2 puffs twice daily BUDESONIDE-FORMOTEROL FUMARATE [id number] Suly Yoder RN carvedilol 25 mg oral [...] 23, 2021 5:10pm Start: 04-28-2021 End: 11-23-2021 Tjuidzfpjjf-Mzslksucb-Fwblbd er (Trelegy Ellipta) 100-62.5-25 mcg Blister With Device Discontinued 1 NMA INHALATION DAILY April 28, 2021 12:00am November 23, 2021 5:10pm Start: 04-28-2021 End: 11-23-2021 Jxwtoryivum-Hkeyqsari-Wgjeix er (Trelegy Ellipta) 100-62.5-25 mcg Blister With Device Discontinued 1 INH INHALATION DAILY April 27, 2021 11:00pm November 23, 2021 4:10pm Start: 04-28-2021 End: 11-23-2021 Vbytnvjjgos-Saorquflq-Tzmmfk er (Trelegy Ellipta) 100-62.5-25 mcg Blister With [...] One tablet by mouth daily LEVOTHYROXINE SODIUM [id number] Suly Yoder RN Lidocaine (13 sources) Antiarrhythmic, [...] 2021 12:00am August 17, 2021 4:39pm nystatin 037365 unt/ml oral suspension (13 sources) Polyene Antifungal Start: 05-01-2021 End: 06-01-2021 take 684806 [IU] by mouth four times daily Nystatin 100,000 unit/mL Suspension Discontinued 953944 U PO 4 TIMES DAILY 140 7 [...] tablet by mouth daily as needed TADALAFIL [id number] Suly Yoder RN ticagrelor 90 mg oral [...] disease (20 sources) Atherosclerotic heart disease of [place] coronary artery without angina pectoris; Translations: [Coronary [...] D 1,25 DIHY 8.9 pg/mL Abnormal 24.8-81.5 [facility] Comment on above: Result Comment: Perf ormed at: BN - [facility] [address] [id number] Right Of [address] Appraiser: Saundra Anderson MD, Phone: [phone] Performed By: #### L 501.4021, L506.0400, L501.9520, L100.0100, L503.7505, L500.2500 #### [facility] [address] [place], [place], [id number] Basic Metabolic Profile (BMP )on 02-12-2025 BUN Normal - [facility] Comment on above: Result Comment: Canc elled via OM: Order cancelled - Patient discharged Performed By: #### L 501.4021, L506.0400, L501.9520, L100.0100, L503.7505, L500.2500 #### [facility] [address] [place], [place], [address] [phone] BUN/CRE Normal - [facility] Comment on above: Result Comment: Canc elled via OM: Order cancelled - Patient discharged Performed By: #### L 501.4021, L506.0400, L501.9520, L100.0100, L503.7505, L500.2500 #### [facility] [address] [place], [address] Calcium Normal 7.6-11.0 [facility] Comment on above: Result Comment: Canc elled via OM: Order cancelled - Patient discharged Performed By: #### L 501.4021, L506.0400, L501.9520, L100.0100, L503.7505, L500.2500 #### [facility] [address] [place], [address] CL Normal 98-108 [facility] Comment on above: Result Comment: Canc elled via OM: Order cancelled - Patient discharged Performed By: #### L 501.4021, L506.0400, L501.9520, L100.0100, L503.7505, L500.2500 #### [facility] [address] [place], [address] CO2 Normal 21.0-32.0 [facility] Comment on above: Result Comment: Canc elled via OM: Order cancelled - Patient discharged Performed By: #### L 501.4021, L506.0400, L501.9520, L100.0100, L503.7505, L500.2500 #### [facility] [address] [place], [address] CREAT,SERUM Normal 0.70-1.20 [facility] Comment on above: Result Comment: Canc elled via OM: Order cancelled - Patient discharged Performed By: #### L 501.4021, L506.0400, L501.9520, L100.0100, L503.7505, L500.2500 #### [facility] [address] [place], [address] eGFR Normal >60 [facility] Comment on above: Result Comment: Canc elled via OM: Order cancelled - Patient discharged Performed By: #### L 501.4021, L506.0400, L501.9520, L100.0100, L503.7505, L500.2500 #### [facility] [address] [place], [address] GAP Normal 5-15 [facility] Comment on above: Result Comment: Canc elled via OM: Order cancelled - Patient discharged Performed By: #### L 501.4021, L506.0400, L501.9520, L100.0100, L503.7505, L500.2500 #### [facility] [address] [place], [address] GLU Normal 70-99 [facility] Comment on above: Result Comment: Canc elled via OM: Order cancelled - Patient discharged Performed By: #### L 501.4021, L506.0400, L501.9520, L100.0100, L503.7505, L500.2500 #### [facility] [address] [place], [address] Potassium Normal 3.3-5.1 [facility] Comment on above: Result Comment: Canc elled via OM: Order cancelled - Patient discharged Performed By: #### L 501.4021, L506.0400, L501.9520, L100.0100, L503.7505, L500.2500 #### [facility] [address] [place], [address] Basic Metabolic Profile (BMP) Normal 133-145 [facility] Comment on above: Result Comment: Canc elled via OM: Order cancelled - Patient discharged Performed By: #### L 501.4021, L506.0400, L501.9520, L100.0100, L503.7505, L500.2500 #### [facility] [address] [place], [address] CBC W/Diff, Automatedon 03-2 Absolute Neut Normal 2.0-7.7 [facility] Comment on above: Result Comment: Canc elled via OM: Order cancelled - Patient discharged Performed By: #### L 501.4021, L506.0400, L501.9520, L100.0100, L503.7505, L500.2500 #### [facility] [address] [place], [address] HCT Normal 40-54 [facility] Comment on above: Result Comment: Canc elled via OM: Order cancelled - Patient discharged Performed By: #### L 501.4021, L506.0400, L501.9520, L100.0100, L503.7505, L500.2500 #### [facility] [address] [place], [address] HGB Normal 13.0-16.5 [facility] Comment on above: Result Comment: Canc elled via OM: Order cancelled - Patient discharged Performed By: #### L 501.4021, L506.0400, L501.9520, L100.0100, L503.7505, L500.2500 #### [facility] [address] [place], [address] MCH Normal 27.0-32.0 [facility] Comment on above: Result Comment: Canc elled via OM: Order cancelled - Patient discharged Performed By: #### L 501.4021, L506.0400, L501.9520, L100.0100, L503.7505, L500.2500 #### [facility] [address] [place], [address] MCHC Normal 32-36 [facility] Comment on above: Result Comment: Canc elled via OM: Order cancelled - Patient discharged Performed By: #### L 501.4021, L506.0400, L501.9520, L100.0100, L503.7505, L500.2500 #### [facility] [address] [place], [address] MCV Normal 80-94 [facility] Comment on above: Result Comment: Canc elled via OM: Order cancelled - Patient discharged Performed By: #### L 501.4021, L506.0400, L501.9520, L100.0100, L503.7505, L500.2500 #### [facility] [address] [place], [address] NEUT% Normal 47-70 [facility] Comment on above: Result Comment: Canc elled via OM: Order cancelled - Patient discharged Performed By: #### L 501.4021, L506.0400, L501.9520, L100.0100, L503.7505, L500.2500 #### [facility] [address] [place], [address] PLT Normal 150-450 [facility] Comment on above: Result Comment: Canc elled via OM: Order cancelled - Patient discharged Performed By: #### L 501.4021, L506.0400, L501.9520, L100.0100, L503.7505, L500.2500 #### [facility] [address] [place], [address] RBC Normal 4.6-6.2 [facility] Comment on above: Result Comment: Canc elled via OM: Order cancelled - Patient discharged Performed By: #### L 501.4021, L506.0400, L501.9520, L100.0100, L503.7505, L500.2500 #### [facility] [address] [place], [address] RDW CV Normal 11.6-14.6 [facility] Comment on above: Result Comment: Canc elled via OM: Order cancelled - Patient discharged Performed By: #### L 501.4021, L506.0400, L501.9520, L100.0100, L503.7505, L500.2500 #### [facility] [address] [place], [address] RDW SD Normal 35.1-43.9 [facility] Comment on above: Result Comment: Canc elled via OM: Order cancelled - Patient discharged Performed By: #### L 501.4021, L506.0400, L501.9520, L100.0100, L503.7505, L500.2500 #### [facility] [address] [place], [address] WBC Normal 4.4-11.0 [facility] Comment on above: Result Comment: Canc elled via OM: Order cancelled - Patient discharged Performed By: #### L 501.4021, L506.0400, L501.9520, L100.0100, L503.7505, L500.2500 #### [facility] [address] [place], [address] Alcohol, Blood (Medical)-Ser umon 02-11-2025 SERUM ETOH < 10.1 Normal <=10.0 [facility] Comment on above: Result Comment: This test is for medical purposes only. The legal definition of intoxication varies according to local law. Performed By: #### L 501.4020 #### [facility] [address] [facility] [place], [address] Amphetamines Screen method > 1000 ng/mL Ql (U)Ordered By: Mitchell Lucero on 02-11-2025 Amphetamines Ql (U) Negative <1000 ng/mL [facility] Urine Barbiturates Screen Negative < 200 ng/mL [facility] Bedside Glucoseon 02-11-2025 FINGERSTICK GLU 339 mg/dL High 74-106 [facility] Comment on above: Result Comment: CARLOS GEMENT OF PATIENT CARE PER NURSING PROTOCOL Performed By: #### L 501.4021, L506.0400, L501.9520, L100.0100, L503.7505, L500.2500 #### [facility] [address] [place], [address] FINGERSTICK GLU 435 mg/dL High 74-106 [facility] Comment on above: Result Comment: CARLOS MAYFIELDLEILA OF PATIENT CARE PER NURSING PROTOCOL Performed By: #### L 501.4021, L506.0400, L501.9520, L100.0100, L503.7505, L500.2500 #### [facility] [address] [place], [address] Brain W/WO Contraston 2024 Brain W/WO Contrast [facility] Imaging Services [address] [address] Brain W/WO Contrast MR#: [id number] Acct: [id number] Name: LATONYA ELDER Rep #: [id number] : 1970 M 54 From: Mitchell Torrez PCP: Dr. Beka Bowie MD Status: DIS IN Study: Brain W/WO Contrast Date of Exam: 02/11/25 Exam# [id number] Ordering Dr: Mitchell Deras DO ADDENDUM by Dr. Mitchell King MD on 03/02/25 at 1035 Dose: 20 mL Clariscan intravenous. Reading Location: [id number] 03/02/25 1035 Date cc: Dr. Mitchell Deras [...] in the CT of 02/11/2025. Reading Location: [address] CC: Dr. Mitchell Deras DO; Dr. Beka Bowie MD Getter Welder: Signed Normal [facility] Calculated very low density lipoprotein (VLDL) cholesterol measurementOrdered By: Mitchell Lucero on 02-11-2025 VLDL Cholesterol 15 mg/dL 5-40 [facility] Carotid Duplex Ultrasoundon 02-11-2025 Carotid Duplex Ultrasound [facility] [address] [facility] [place] [address] Carotid Duplex Ultrasound 02/11/25 0817 MR#: [id number] Acct: [id number] Name: LATONYA ELDER Rep #: [id number] : 1970 54 From: Brennon Coronado MD [...] the left vertebral artery. Procedure Carotid Duplex 81755. This is a Carotid Duplex examination using [...] Dictated: 02/11/25 0817 Date Transcribed: 02/11/25 1526 Getter Welder: Signed Normal [facility] Echo Complete W/ Contraston 02-11-2025 Echo Complete W/ Contrast [facility] Cardi[facility] Services [address] [place] [address] Echo Complete W/ Contrast 02/11/25 0953 MR#: [id number] Acct: [id number] Name: LATONYA ELDER Rep #: [id number] : 1970 54 From: Eric Flores MD [...] Date Dictated: 02/11/25952 Date Transcribed: 02/11/25 1125 Getter Welder: S (more content not included)... Normal [facility] Echocardiogram study reportO rdered By: Eric Flores on 02-11-2025 Study report [facility] [place] [address] Echo Complete W/ Contrast 02/11/2553 MR#: [id number] Acct: [id number] Name: LATONYA ELDER Rep #:[id number] : 1970 54 From: Eric Torrez Attending [...] Dictated: 02/11/25 0953 Date Transcribed: 02/11/25 1125 Getter Welder: Signed [facility] Work Phone: Electrocardiogram reportOrde red By: Eric Flores on 02-11-2025 EKG study [facility] Cardiovascular Services [address] [place] [address] 12 Lead EKG 02/10/25 1808 MR#: [id number] Acct: [id number] Name: LATONYA ELDER Rep #:[id number] : 1970 54 From: Eric Flores MD [...] Abnormal ECG Confirmed by SANDRA EVANGELISTA, ERIC ([id number]), mapping editor TESS PERRY ([id number]) on 02/11/2025 8:32:04 AM Referred By: Confirmed By: ERIC FLORES MD 02/11/25 0832 Date _ Eric Flores MD CC: Dr. Beka Bowie MD; Dr. Brennon Juarez DO; Dr. Jasbir Curry DO ~ Signed [facility] Work Phone: Ethanol [Mass/Vol]Ordered By : Mitchell Lucero on 02-11-2025 Ethyl Alcohol Level < 10.1 mg/dL <10.1 [facility] Comment on above: This test is for med ical purposes only. The legal definition of intoxication varies according to local law. FOLATES,SERUM (FOLIC ACID)on 02-11-2025 FOLATES,SERUM 7.12 ng/mL Normal 4.60-34.80 [facility] Comment on above: Result Comment: Hemo lysis, Results will be affected, Requires Recollection. Performed By: #### L 501.4020 #### [facility] [address] [place], [place], [address] Folate [Mass/Vol]Ordered By: Mitchell Lucero on 02-11-2025 Serum Folate 7.12 ng/mL 4.60-34.80 [facility] Comment on above: Hemolysis, Results w ill be affected, Requires Recollection. Glucose measurement at [facility] deOrdered By: Brennon Juarez on 02-11-2025 Bedside Glucose (Misc Panel) 339 mg/dL High 74-106 [facility] Comment on above: MANAGEMENT OF PATIEN T CARE PER NURSING PROTOCOL Hemoglobin A1con 02-11-2025 HbA1c (Bld) [Mass fraction] 10.8 % Normal <=5.6 [facility] Comment on above: Performed By: #### L 501.4020 #### [facility] [address] [place], [address] Hemoglobin A1c percentageOrd ered By: Mitchell Lucero on 02-11-2025 HbA1c (Bld) [Mass fraction] 10.8 % >5.7 [facility] L. pneumophila Ag Ql (U)Orde red By: Brennon Juarez on 02-11-2025 Legionella Antigen [facility] L503.0106on 02-11-2025 Cobalamin (Vitamin B12) [Mass/Vol] 573 pg/mL Normal 180-914 [facility] Comment on above: Performed By: #### L 501.4021, L506.0400, L501.9520, L100.0100, L503.7505, L500.2500 #### [facility] [address], [address] LDL calc ser/plasOrdered By: Mitchell Lucero on 02-11-2025 LDL Cholesterol, Calculated 160 mg/dL [facility] Comment on above: Xjxvtcpnoh=430-948 m g/dL & Higher Ndmc=786 mg/dL or greater Legionella Antigen Urineon 0 02-11-2025 LEGU URINE, RANDOM Legionella Antigen result interpretation: L pneumo Ag Ur Ql Negative Presumptive negative for Legionella pneumophila serogroup 1 antigen in urine, suggesting no recent or current infection. Legionella Ag, Urine Negative (See interpretation below) Normal [facility] Comment on above: Performed By: #### L 503.6005, L300.3900, L501.5425, L100.0100, L500.2500, L300.4310, L503.6620 #### [facility] [address] [place], [address] Lipid Profileon 02-11-2025 CHOL:HDL 5.44 Normal [facility] Comment on above: Order Comment: Comme nts: NPO at [place] prior to lipid panel Performed By: #### L 501.4021, L506.0400, L501.9520, L100.0100, L503.7505, L500.2500 #### [facility] [address] [place], [address] Cholesterol [Mass/Vol] 215 mg/dL High <=200 [facility] Comment on above: Order Comment: Comme nts: NPO at [place] prior to lipid panel Result Comment: Chol esterol level, Desirable <200 mg/dL Borderline high cholesterol 200-239 mg/dL High cholesterol >=240 mg/dL Recommendations of the NCEP Adult Treatment Panel for the following risk-cutoff thresholds for the [place] population. Performed By: #### L 501.4021, L506.0400, L501.9520, L100.0100, L503.7505, L500.2500 #### [facility] [address] [place], [address] Cholesterol in HDL [Mass/Vol] 40 mg/dL Normal [facility] Comment on above: Order Comment: [...] 501.4021, L506.0400, L501.9520, L100.0100, L503.7505, L500.2500 #### [facility] [address] [place], [address] Cholesterol in LDL [Mass/Vol] 160 mg/dL Normal [facility] Comment on above: Order Comment: Comme nts: NPO at [place] prior to lipid panel Result Comment: Bord rikfks=081-733 mg/dL Higher Ntdp=262 mg/dL or greater Performed By: #### L 501.4021, L506.0400, L501.9520, L100.0100, L503.7505, L500.2500 #### [facility] [address] [place], [address] Cholesterol in VLDL [Mass/Vol] 15 mg/dL Normal 5-40 [facility] Comment on above: Order Comment: Comme nts: NPO at [place] prior to lipid panel Performed By: #### L 501.4021, L506.0400, L501.9520, L100.0100, L503.7505, L500.2500 #### [facility] [address] [place], [address] Triglyceride [Mass/Vol] 76 mg/dL Normal [facility] Comment on above: Order Comment: Comme nts: NPO at [place] prior to lipid panel Result Comment: The drugs N-Acetylcysteine and Metamizole may falsely depress this assay. Normal range: <150 mg/dL Borderline High: 150-199 mg/dL High: 200-499 mg/dL Very High: >500 mg/dL Performed By: #### L 501.4021, L506.0400, L501.9520, L100.0100, L503.7505, L500.2500 #### [facility] Laboratory [address] [place], [address] MR/CON.PCM.NEon 02-11-2025 MR/CON.PCM.NE [facility] Medical Records Department [address] [place] [address] Consultation - Neurology 02/11/25 1248 MR#: [id number] Acct: [id number] Name: LATONYA ELDER Rep #: [id number] : 1970 54 From: Eduardo Deal MD PCP: Dr. Beka Bowie MD Status:DIS IN Location: ICU [id number] Assessment and Plan: Neuro Assessment/Plan 54 y/o man with h/o HTN, DLD, obesity, DM, CAD s/p stent and NSTEMI on plavix and ASA, b/l LE DVT not on AC p/w confusion for the last 2 days. He denies aphasia and just reports confusion. He reported that his symptoms have been davroi-jcq-liqiuj for the past several days and since [...] up TTE and workup for chest pain. OT/PT/BENEFITS CLERK I personally attended this patient and spent [...] He reported that his symptoms have been ntcece-goj-efcsjv for the past several days and since [...] Today, he reports feeling better with NIHSS-0. [facility] Medical History History of DVT (deep vein [...] elevation myocardial infarction (NSTEMI) (11/22/20) Atherosclerosis of miami coronary artery of [place] heart without angina pectoris Non-ST elevation IN (NSTEMI) Home Medications ???Medication ???Instructions ???Recorded ???Last [...] chest 0 (more content not included)... Normal [facility] Magnetic resonance imaging r eportOrdered By: Mitchell King on 02-11-2025 Study report [facility] Imaging Services [address] [place] [address] Brain W/WO Contrast MR#: [id number] Acct: [id number] Name: LATONYA ELDER Rep #: [id number] : 1970 M 54 From: Fabien King MD PCP: Dr. Beka Bowie MD Status: A DM IN Study:Brain W/WO Contrast Date of Exam: 02/11/25 Exam# [id number] Ordering Dr: Mitchell King DO EXAM: MRI [...] in the CT of 02/11/2025. Reading Location: [address] CC: Dr. Mitchell Deras DO; Dr. Beka Bowie MD ~ Getter Welder: Signed [facility] Methadone, urineOrdered By: Mitchell Lucero on 02-11-2025 Urine Methadone Screen Negative < 300 ng/mL [facility] No Panel InformationOrdered By: Mitchell Lucero on 02-11-2025 Urine Buprenorphine Qualitative Negative < 200 ng/mL [facility] Urine Oxycodone Screen Negative < 100 ng/mL [facility] Quantitative urine opiates m easurementOrdered By: Mitchell Lucero on 02-11-2025 Opiates Ql (U) Negative < 300 ng/mL [facility] Screening total cholesterol/ high density lipoprotein (HDL) cholesterol ratioOrdered By: Mitchell Lucero on 02-11-2025 Cholesterol.total/Choles terol in HDL [Mass ratio] 5.44 {ratio} [facility] Serum or plasma cholesterol in HDL measurement (mass/volume)Ordered By: Mitchell Lucero on 02-11-2025 Cholesterol in HDL [Mass/Vol] 40 mg/dL >40 [facility] Comment on above: National Cholesterol Education Program (NCEP) guidelines:<40 mg/dL: Low HDL-cholesterol (major risk factor for CHD)>= 60 mg/dL: High HDL-cholesterol (negative risk factor for CHD)HDL-cholesterol is affected by a number of factors, e.g. smoking, exercise, hormones, sex and age. Serum or plasma cholesterol measurement (mass/volume)Ordered By: Mitchell Lucero on 02-11-2025 Cholesterol [Mass/Vol] 215 mg/dL High <201 [facility] Comment on above: Cholesterol level, D esirable <200 mg/dLBorderline high cholesterol 200-239 mg/dLHigh cholesterol >=240 mg/dLRecommendations of the NCEP Adult Treatment Panel for the following risk-cutoff thresholds for the [place] population. Strep pneumoniae Antig(UR,CS F)on 02-11-2025 STPAG URINE INTERPRETATION Strep pneumoniae Antig(UR,CSF) Strep pneumoniae Antig(UR,CSF) Negative Urine Presumptive negative for pneumococcal pneumonia, suggesting no current or recent pneumococcal infection. Infection due to S pneumoniae cannot be ruled out since the antigen present in the sample may be below the detection limit of the test. Strep pneumo Test Negative URINE (See interpretation below) Normal [facility] Comment on above: Performed By: #### L 503.6005, L300.3900, L501.5425, L100.0100, L500.2500, L300.4310, L503.6620 #### [facility] [address] [facility] [place], [address] Streptococcus pneumoniae ant igen assayOrdered By: Brennon Juarez on 02-11-2025 Streptococcus pneumoniae Antigen (M [facility] TSH DL <= 0.005 mIU/L QnOrde red By: Mitchell Lucero on 02-11-2025 Thyroid Stimulating Hormone (TSH) 0.973 uIU/mL 0.300-4.200 [facility] Thyroid Stim Hormone (TSH)on 02-11-2025 TSH 0.973 uIU/mL Normal 0.300-4.200 [facility] Comment on above: Performed By: #### L 501.4021, L506.0400, L501.9520, L100.0100, L503.7505, L500.2500 #### [facility] [address] [facility] [address] [place], [address] Triglycerides measurementOrd ered By: Mitchell Lucero on 02-11-2025 Triglyceride [Mass/Vol] 76 mg/dL <199 [facility] Comment on above: The drugs N-Acetylcy steine and Metamizole may falsely depress this assay. Normal range: <150 mg/dLBorderline High: 150-199 mg/dLHigh: 200-499 mg/dLVery High: >500 mg/dL Urine Drug Screen (VISTA)on 02-11-2025 AMPHETAMINES Negative Normal <1000 ng/mL [facility] Comment on above: Performed By: #### L 501.4021, L506.0400, L501.9520, L100.0100, L503.7505, L500.2500 #### [facility] [address] [place], [address] BARBITIURATES Negative Normal < 200 ng/mL [facility] Comment on above: Performed By: #### L 501.4021, L506.0400, L501.9520, L100.0100, L503.7505, L500.2500 #### [facility] [address] [place], [address] BENZODIAZIPINE Negative Normal < 200 ng/mL [facility] Comment on above: Performed By: #### L 501.4021, L506.0400, L501.9520, L100.0100, L503.7505, L500.2500 #### [facility] [address] [place], [address] BUP Ur Drug Scr Negative Normal < 200 ng/mL [facility] Comment on above: Performed By: #### L 501.4021, L506.0400, L501.9520, L100.0100, L503.7505, L500.2500 #### [facility] [address] [place], [address] COCAINE Negative Normal < 300 ng/mL [facility] Comment on above: Performed By: #### L 501.4021, L506.0400, L501.9520, L100.0100, L503.7505, L500.2500 #### [facility] [address] [place], [address] Fentanyl Negative Normal [facility] Comment on above: Performed By: #### L 501.4021, L506.0400, L501.9520, L100.0100, L503.7505, L500.2500 #### [facility] [address] [place], [address] METHADONE Negative Normal < 300 ng/mL [facility] Comment on above: Performed By: #### L 501.4021, L506.0400, L501.9520, L100.0100, L503.7505, L500.2500 #### [facility] [address] [place], [address] OPIATES Negative Normal < 300 ng/mL [facility] Comment on above: Performed By: #### L 501.4021, L506.0400, L501.9520, L100.0100, L503.7505, L500.2500 #### [facility] [address] [place], [address] OXYCODONE Negative Normal < 100 ng/mL [facility] Comment on above: Performed By: #### L 501.4021, L506.0400, L501.9520, L100.0100, L503.7505, L500.2500 #### [facility] [address] [place], [address] PCP Negative Normal < 25 ng/mL [facility] Comment on above: Performed By: #### L 501.4021, L506.0400, L501.9520, L100.0100, L503.7505, L500.2500 #### [facility] [address] [place], [address] THC Negative Normal < 50 ng/mL [facility] Comment on above: Performed By: #### L 501.4021, L506.0400, L501.9520, L100.0100, L503.7505, L500.2500 #### [facility] [address] [place], [address] Urine benzodiazepine levelOr dered By: Mitchell Lucero on 02-11-2025 Benzodiazepines Ql (U) Negative < 200 ng/mL [facility] Urine cocaine levelOrdered B y: Mitchell Lucero on 02-11-2025 Cocaine Ql (U) Negative < 300 ng/mL [facility] Urine jczma-0-pgvdwjlnciezlm abinol (THC) measurementOrdered By: Mitchell Lucero on 02-11-2025 Cannabinoids Screen Ql (U) Negative < 50 ng/mL [facility] Urine phencyclidine (PCP) de tectionOrdered By: Mitchell Lucero on 02-11-2025 Phencyclidine Ql (U) Negative < 25 ng/mL [facility] Vitamin B12 ser/plasOrdered By: Mitchell Lucero on 02-11-2025 Cobalamin (Vitamin B12) [Mass/Vol] 573 pg/mL 180-914 [facility] fentaNYL Screen Ql (U)Ordere d By: Mitchell Lucero on 02-11-2025 Urine Fentanyl Screen Negative [facility] 12 Lead EKGon 02-10-2025 12 Lead EKG [facility] Cardiovascular Services [address] [place] [address] 12 Lead EKG 02/10/25 1808 MR#: [id number] Acct: [id number] Name: LATONYA ELDER Rep #: [id number] : 1970 54 From: Eric Flores MD [...] Abnormal ECG Confirmed by ERIC FLORES MD ([id number]), mapping editor TESS PERRY ([id number]) on 02/11/2025 8:32:04 AM Referred By: Confirmed By: ERIC FLORES MD 02/11/25 0832 Date Eric Flores MD CC: Dr. Beka Bowie MD; Dr. Brennon Juarez DO; Dr. Jasbir Curry DO Signed Normal [facility] Absolute neutrophil countOrd ered By: Jasbir Curry on 02-10-2025 Neutrophils (Bld) [#/Vol] 5.8 10*3/uL 2.0-7.7 [facility] Anion gap in Serum or Plasma Ordered By: Jasbir Curry on 02-10-2025 Anion gap [Moles/Vol] 12 mmol/L 5-15 [facility] BUN/creatinine ratioOrdered By: Jasbir Curry on 02-10-2025 Urea nitrogen/Creatinine [Mass ratio] 22.0 mg/mg High - [facility] Base excess Calc (BldV) [Mol es/Vol]Ordered By: Jasbir Curry on 02-10-2025 Venous Blood Base Excess 3 mmol/L -1.0-3.5 [facility] Basic Metabolic Profile (BMP )on 02-10-2025 BUN/CRE 22.0 RATIO High 10- [facility] Comment on above: Performed By: #### L 501.4021, L506.0400, L501.9520, L100.0100, L503.7505, L500.2500 #### [facility] [address] [place], [address] Calcium [Mass/Vol] 9.1 mg/dL Normal 7.6-11.0 [facility] Comment on above: Performed By: #### L 501.4021, L506.0400, L501.9520, L100.0100, L503.7505, L500.2500 #### [facility] [address] [place], [address] Chloride [Moles/Vol] 102 mmol/L Normal 98-108 [facility] Comment on above: Performed By: #### L 501.4021, L506.0400, L501.9520, L100.0100, L503.7505, L500.2500 #### [facility] [address] [place], [address] CO2 [Moles/Vol] 23.1 mmol/L Normal 21.0-32.0 [facility] Comment on above: Performed By: #### L 501.4021, L506.0400, L501.9520, L100.0100, L503.7505, L500.2500 #### [facility] [address] [place], [address] Creatinine [Mass/Vol] 1.09 mg/dL Normal 0.70-1.20 [facility] Comment on above: Performed By: #### L 501.4021, L506.0400, L501.9520, L100.0100, L503.7505, L500.2500 #### [facility] [address] [place], [address] ECRCL 93.49 ml/min Normal 50-250 [facility] Comment on above: Performed By: #### L 501.4021, L506.0400, L501.9520, L100.0100, L503.7505, L500.2500 #### [facility] [address] [place], [address] GAP 12 Normal 5-15 [facility] Comment on above: Performed By: #### L 501.4021, L506.0400, L501.9520, L100.0100, L503.7505, L500.2500 #### [facility] [address] [place], [address] GFR/1.73 sq M.predicted among non-blacks MDRD (S/P/Bld) [Vol rate/Area] 81 mL/min/{1.73_m2} Normal >60 [facility] Comment on above: Result Comment: mL/m in/1.73m2 CKD-EPI Creatinine Equation (2020) Performed By: #### L 501.4021, L506.0400, L501.9520, L100.0100, L503.7505, L500.2500 #### [facility] [address] [place], [address] Glucose [Mass/Vol] 255 mg/dL High 70-99 [facility] Comment on above: Performed By: #### L 501.4021, L506.0400, L501.9520, L100.0100, L503.7505, L500.2500 #### [facility] [address] [place], [address] Potassium [Moles/Vol] 4.3 mmol/L Normal 3.3-5.1 [facility] Comment on above: Result Comment: Hemo lysis present, Results??could be affected. ?? Performed By: #### L 501.4021, L506.0400, L501.9520, L100.0100, L503.7505, L500.2500 #### [facility] [address] [place], [address] Sodium [Moles/Vol] 137 mmol/L Normal 133-145 [facility] Comment on above: Performed By: #### L 501.4021, L506.0400, L501.9520, L100.0100, L503.7505, L500.2500 #### [facility] [address] [place], [address] Urea nitrogen [Mass/Vol] 24 mg/dL High 4-19 [facility] Comment on above: Performed By: #### L 501.4021, L506.0400, L501.9520, L100.0100, L503.7505, L500.2500 #### [facility] [address] [place], [address] Basophil percentageOrdered B y: Jasbir Curry on 02-10-2025 Basophils/100 WBC (Bld) 0.8 % 0-1 [facility] Bedside Glucoseon 02-10-2025 FINGERSTICK GLU 234 mg/dL High 74-106 [facility] Comment on above: Result Comment: CARLOS BONILLA OF PATIENT CARE PER NURSING PROTOCOL Performed By: #### L 501.4021, L506.0400, L501.9520, L100.0100, L503.7505, L500.2500 #### [facility] [address] [place], [address] CBC W/Diff, Automatedon 01-18 Absolute Lymph 2.41 X10 3/uL Normal 0.83-4.51 [facility] Comment on above: Performed By: #### L 501.4021, L506.0400, L501.9520, L100.0100, L503.7505, L500.2500 #### [facility] [address] [place], [address] Absolute Neut 5.8 X10 3/uL Normal 2.0-7.7 [facility] Comment on above: Performed By: #### L 501.4021, L506.0400, L501.9520, L100.0100, L503.7505, L500.2500 #### [facility] [address] [place], [address] Basophils/100 WBC (Bld) 0.8 % Normal 0-1 [facility] Comment on above: Performed By: #### L 501.4021, L506.0400, L501.9520, L100.0100, L503.7505, L500.2500 #### [facility] [address] [place], [address] Eosinophils/100 WBC (Bld) 2.4 % Normal 0-5 [facility] Comment on above: Performed By: #### L 501.4021, L506.0400, L501.9520, L100.0100, L503.7505, L500.2500 #### [facility] [address] [place], [address] Erythrocyte distribution width (RBC) [Ratio] 13.9 % Normal 11.6-14.6 [facility] Comment on above: Performed By: #### L 501.4021, L506.0400, L501.9520, L100.0100, L503.7505, L500.2500 #### [facility] [address] [place], [address] Hematocrit (Bld) [Volume fraction] 41.1 % Normal 40-54 [facility] Comment on above: Performed By: #### L 501.4021, L506.0400, L501.9520, L100.0100, L503.7505, L500.2500 #### [facility] [address] [place], [address] Hemoglobin (Bld) [Mass/Vol] 13.5 g/dL Normal 13.0-16.5 [facility] Comment on above: Performed By: #### L 501.4021, L506.0400, L501.9520, L100.0100, L503.7505, L500.2500 #### [facility] [address] [place], [address] IG% 0.300 Normal 0.0-0.9 [facility] Comment on above: Result Comment: IG% - Immature Granulocytes (promyelocytes, myelocytes and metamyelocytes) > 1% indicates that a LEFT SHIFT is Present. Performed By: #### L 501.4021, L506.0400, L501.9520, L100.0100, L503.7505, L500.2500 #### [facility] [address] [place], [address] Lymphocytes/100 WBC (Bld) 25.5 % Normal 19-41 [facility] Comment on above: Performed By: #### L 501.4021, L506.0400, L501.9520, L100.0100, L503.7505, L500.2500 #### [facility] [address] [place], [address] MCH (RBC) [Entitic mass] 27.4 pg Normal 27.0-32.0 [facility] Comment on above: Performed By: #### L 501.4021, L506.0400, L501.9520, L100.0100, L503.7505, L500.2500 #### [facility] [address] [place], [address] MCHC (RBC) [Mass/Vol] 32.8 g/dL Normal 32-36 [facility] Comment on above: Performed By: #### L 501.4021, L506.0400, L501.9520, L100.0100, L503.7505, L500.2500 #### [facility] [address] [place], [address] MCV (RBC) [Entitic vol] 83.5 fL Normal 80-94 [facility] Comment on above: Performed By: #### L 501.4021, L506.0400, L501.9520, L100.0100, L503.7505, L500.2500 #### [facility] [address] [place], [address] Monocytes/100 WBC (Bld) 9.2 % Normal 0-10 [facility] Comment on above: Performed By: #### L 501.4021, L506.0400, L501.9520, L100.0100, L503.7505, L500.2500 #### [facility] [address] [place], [address] Neutrophils/100 WBC (Bld) 61.8 % Normal 47-70 [facility] Comment on above: Performed By: #### L 501.4021, L506.0400, L501.9520, L100.0100, L503.7505, L500.2500 #### [facility] [address] [place], [address] Nucleated RBC (Bld) [#/Vol] 0 10*3/uL Normal 0-5 [facility] Comment on above: Performed By: #### L 501.4021, L506.0400, L501.9520, L100.0100, L503.7505, L500.2500 #### [facility] [address] [place], [address] Platelet mean volume (Bld) [Entitic vol] 10.6 fL Normal 6.2-12.0 [facility] Comment on above: Performed By: #### L 501.4021, L506.0400, L501.9520, L100.0100, L503.7505, L500.2500 #### [facility] [address] [place], [address] Platelets (Bld) [#/Vol] 317 10*3/uL Normal 150-450 [facility] Comment on above: Performed By: #### L 501.4021, L506.0400, L501.9520, L100.0100, L503.7505, L500.2500 #### [facility] [address] [place], [address] RBC (Bld) [#/Vol] 4.92 10*6/uL Normal 4.6-6.2 [facility] Comment on above: Performed By: #### L 501.4021, L506.0400, L501.9520, L100.0100, L503.7505, L500.2500 #### [facility] [address] [place], [address] RDW SD 42.5 fl Normal 35.1-43.9 [facility] Comment on above: Performed By: #### L 501.4021, L506.0400, L501.9520, L100.0100, L503.7505, L500.2500 #### [facility] [address] [place], [address] WBC (Bld) [#/Vol] 9.4 10*3/uL Normal 4.4-11.0 [facility] Comment on above: Performed By: #### L 501.4021, L506.0400, L501.9520, L100.0100, L503.7505, L500.2500 #### [facility] [address] [facility] [facility] [place], [address] CO2 (BldV) [Moles/Vol]Ordere d By: Jasbir Curry on 02-10-2025 CO2 [Moles/Vol] 30 mmol/L 23-33 [facility] CO2 (BldV) [Partial pressure ]Ordered By: Jasbir Curry on 02-10-2025 Bed Mix Venous Bld PCO2 at Pat Temp 47.6 mmHg 41-51 [facility] Carbon dioxide, total [Moles /volume] in Central venous bloodOrdered By: Jasbir Curry on 02-10-2025 CO2 [Moles/Vol] 23.1 mmol/L 21.0-32.0 [facility] Chest PA and Lateralon 02-10 Chest PA and Lateral [facility] Imaging Services [address] [place] [address] Chest PA and Lateral MR#: [id number] Acct: [id number] Name: LATONYA ELDER Rep #: [id number] : 1970 M 54 From: Harvey Hassan i, MD PCP: Dr. Beka Bowie MD Status: REG ER Study: Chest PA and Lateral Date of Exam: 02/10/25 Exam# [id number] Ordering Dr: Jasbir Curry DO PROCEDURE: CHEST [...] are new since prior examination. Reading Location: [id number] CC: Dr. Beka Bowie MD; Dr. Jasbir Curry DO Getter Welder: Signed Normal [facility] Chloride assayOrdered By: Cheng Curry on 02-10-2025 Chloride [Moles/Vol] 102 mmol/L 98-108 [facility] Emergency Department Summary on 02-10-2025 Emergency Department Summary [facility] Medical Records Department [address] [place] [address] Emergency Department Summary 02/10/25 MR#: [id number] Acct: [id number] Name: LATONYA ELDER Rep #: [id number] : 1970 54 From: Jasbir Curry DO [...] his inhalers and other medications as prescribed [facility] Medical History History of DVT (deep vein [...] elevation myocardial infarction (NSTEMI) (11/22/20) Atherosclerosis of [place] coronary artery of [place] heart without angina pectoris Non-ST elevation IN (NSTEMI) Home Medications ???Medication ???Instructions ???Recorded ???Last [...] [facility] 25 [facility] 02/10/25 Rx tabs clonidine [...] Current every (more content not included)... Normal [facility] Eosinophil percentageOrdered By: Jasbir Curry on 02-10-2025 Eosinophils/100 WBC (Bld) 2.4 % 0-5 [facility] Erythrocyte distribution wid th ratioOrdered By: Jasbir Curry on 02-10-2025 Erythrocyte distribution width (RBC) [Ratio] 13.9 % 11.6-14.6 [facility] Erythrocyte distribution wid th standard deviationOrdered By: Jasbir Curry on 02-10-2025 Erythrocyte distribution width (RBC) [Entitic vol] 42.5 fL 35.1-43.9 [facility] Estimation of creatinine lauren aranceOrdered By: Jasbir Curry on 02-10-2025 Estimated Creatinine Clearance Calc 93.49 ml/min 50-250 [facility] GFR/1.73 sq M.predicted zachery g non-blacks MDRD (S/P/Bld) [Vol rate/Area]Ordered By: Jasbir Curry on 02-10-2025 Estimated GFR (MDRD) Non-Af Amer 81 >60 [facility] Comment on above: mL/min/1.73m2 CKD-EP I Creatinine Equation (2020) [facility] deOrdered By: Jasbir Curry on 02-10-2025 Bedside Glucose (Misc Panel) 234 mg/dL High 74-106 [facility] Comment on above: MANAGEMENT OF PATIEN T CARE PER NURSING PROTOCOL H AND P Exam - [place] 02-10-2025 H&P Exam - Hospitalist [facility] Medical Records Department [address] [place] [address] H P Exam - Hospitalist 02/10/25 2311 MR#: [id number] Acct: [id number] Name: LATONYA ELDER Rep #: [id number] : 1970 54 From: Mitchell Deras DO PCP: Dr. Beka Bowie MD Status:ADM IN Location: ICU [id number] HPI - General General Date of Admission: [...] troponin and Respiratory Insufficiency who presents to [facility] ER complaining of who presents to [facility] ER complaining of slurred speech and brain fog since Saturday, February 08, 2025. Mr. Elder and his significant other reported that his symptoms have been kovcpy-vov-byerrl for the past several days and since [...] is expected to extend beyond 2 midnights. [facility] Medical History History of DVT (deep vein thrombosis) Respiratory insufficiency Elevated troponin Acute bronchitis COPD exacerb (more content not included)... Normal [facility] Hematocrit Auto (Bld) [Volum e fraction]Ordered By: Jasbir Curry on 02-10-2025 Hematocrit (Bld) [Volume fraction] 41.1 % 40-54 [facility] Hemoglobin measurementOrdere d By: Jasbir Curry on 02-10-2025 Hemoglobin (Bld) [Mass/Vol] 13.5 g/dL 13.0-16.5 [facility] Immature granulocytes/100 WB C Auto (Bld)Ordered By: Jasbir Curry on 02-10-2025 Immature granulocytes/100 WBC (Bld) 0.300 % 0.0-0.9 [facility] Comment on above: IG% - Immature Granu locytes (promyelocytes, myelocytes and metamyelocytes) > 1% indicates that a LEFT SHIFT is Present. L499.0042on 02-10-2025 Trop T High Sen 24 ng/L High <=22 [facility] Comment on above: Performed By: #### L 501.4021, L506.0400, L501.9520, L100.0100, L503.7505, L500.2500 #### [facility] Laboratory [address] [place], [address] L499.0043on 02-10-2025 Trop T High Sen Normal <=22 [facility] Comment on above: Result Comment: Canyung ellgardenia via OM: Ordered Performed By: #### L 501.4021, L506.0400, L501.9520, L100.0100, L503.7505, L500.2500 #### [facility] [address] [place], [address] L501.4021on 02-10-2025 Trop T High Sen 25 ng/L High <=22 [facility] Comment on above: Result Comment: Hemo lysis present, Results??could be affected. ?? Performed By: #### L 501.4021, L506.0400, L501.9520, L100.0100, L503.7505, L500.2500 #### [facility] [address] [place], [address] L503.7505on 02-10-2025 Natriuretic peptide B (Bld) [Mass/Vol] 709 pg/mL Normal <=900 [facility] Comment on above: Result Comment: Hear t Failure Unlikely: < 300 pg/mL Heart Failure Likely < 50 Years: > 450 pg/mL 50-75 Years: > 900 pg/mL >75 Years: > 1800 pg/mL Performed By: #### L 501.4021, L506.0400, L501.9520, L100.0100, L503.7505, L500.2500 #### [facility] [address] [place], [address] Laboratory - Chemistry and C hemistry - challengeOrdered By: Jasbir Curry on 02-10-2025 Natriuretic peptide B (Bld) [Mass/Vol] 709 pg/mL <900 [facility] Comment on above: Heart Failure Unlike ly: < 300 pg/mLHeart Failure Likely< 50 Years: > 450 pg/mL50-75 Years: > 900 pg/mL>75 Years: > 1800 pg/mL Lactic Acidon 02-10-2025 Lactate [Moles/Vol] 1.9 mmol/L Normal 0.0-2.0 [facility] Comment on above: Order Comment: Y Performed By: #### L 501.4021, L506.0400, L501.9520, L100.0100, L503.7505, L500.2500 #### [facility] [address] [place], [address] Lactic acid measurementOrder ed By: Jasbir Curry on 02-10-2025 Lactate [Moles/Vol] 1.9 mmol/L 0.0-2.0 [facility] Lymphocytes Auto (Unsp spec) [#/Vol]Ordered By: Jasbir Curry on 02-10-2025 Lymphocytes (Bld) [#/Vol] 2.41 10*3/uL 0.83-4.51 [facility] Lymphocytes/100 WBC Auto (Un sp spec)Ordered By: Jasbir Curry on 02-10-2025 Lymphocytes/100 WBC (Bld) 25.5 % 19-41 [facility] MCV (mean corpuscular volume ) determinationOrdered By: Jasbir Curry on 02-10-2025 MCV (RBC) [Entitic vol] 83.5 fL 80-94 [facility] Mean corpuscular hemoglobin (MCH) determinationOrdered By: Jasbir Curry on 02-10-2025 MCH (RBC) [Entitic mass] 27.4 pg 27.0-32.0 [facility] Mean corpuscular hemoglobin concentration (MCHC) determinationOrdered By: Jasbir Curry on 02-10-2025 MCHC (RBC) [Mass/Vol] 32.8 g/dL 32-36 [facility] Mean platelet volume determi nationOrdered By: Jasbir Curry on 02-10-2025 Platelet mean volume (Bld) [Entitic vol] 10.6 fL 6.2-12.0 [facility] Monocyte percentageOrdered B y: Jasbir Curry on 02-10-2025 Monocytes/100 WBC (Bld) 9.2 % 0-10 [facility] Neutrophil percentageOrdered By: Jasbir Curry on 02-10-2025 Neutrophils/100 WBC (Bld) 61.8 % 47-70 [facility] No Panel InformationOrdered By: Jasbir Curry on 02-10-2025 Blood Gas Sample Site Not entered [facility] Blood Gas Specimen Type TAMIKA [facility] Oxygen Delivery Device Room Air [facility] Troponin T High Sensitivity 25 ng/L High <22 [facility] Comment on above: Hemolysis present, R esults could be affected. Nucleated red blood cell per centageOrdered By: Jasbir Curry on 02-10-2025 Nucleated RBC/100 WBC (Bld) [Ratio] 0 % 0-5 [facility] Oxygen (BldV) [Partial press ure]Ordered By: Jasbir Curry on 02-10-2025 Venous Blood Partial Pressure O2 52 mmHg High 25-40 [facility] Platelet countOrdered By: Cheng Curry on 02-10-2025 Platelets (Bld) [#/Vol] 317 10*3/uL 150-450 [facility] Potassium (Unsp spec) [Mass/ Vol]Ordered By: Jasbir Curry on 02-10-2025 Potassium [Moles/Vol] 4.3 mmol/L 3.3-5.1 [facility] Comment on above: Hemolysis present, R esults could be affected. RBC Auto (Bld) [#/Vol]Ordere d By: Jasbir Curry on 02-10-2025 RBC (Bld) [#/Vol] 4.92 10*6/uL 4.6-6.2 [facility] STROKE Brain/Head without Co nton 02-10-2025 STROKE Brain/Head without Cont [facility] Imaging Services [address] [place] [address] STROKE Brain/Head without Cont MR#: [id number] Acct: [id number] Name: JAELLATONYA Matt Rep #: [id number] : 1970 M 54 From: Harvey Hassan i, MD PCP: Dr. Beka Bowie MD Status: REG ER Study: STROKE Brain/Head without Cont Date of Exam: 0 02/10/25 Exam# [id number] Ordering Dr: Jasbir Curry DO EXAM: CT [...] 8:00 pm with readback verification. Reading Location: [id number] CC: Dr. Beka Bowie MD; Dr. Jasbir Curry DO Getter Welder: Signed Normal [facility] STROKE CTA Head AND Neck W/C onon 02-10-2025 STROKE CTA Head AND Neck W/Con [facility] Imaging Services [address] [place] [id number] STROKE CTA Head AND Neck W/Con MR#: [id number] Acct: [id number] Name: LATONYA ELDER Rep #: [id number] : 1970 M 54 From: Elsy Das nd, MD PCP: Dr. Beka Bowie MD Status: REG ER Study: STROKE CTA Head AND Neck W/Con Date of Exam: 0 02/10/25 Exam# [id number] Ordering Dr: Jasbir Curry DO PROCEDURE: STROKE [...] caliber. There is origin of the right CHIEF MEDICAL PHYSICIST. The middle and posterior cerebral arteries are [...] at 8:50 pm on 02/10/25. Reading Location: [facility] CC: Dr. Beka Bowie MD; Dr. Jasbir Curry, Getter Welder: Signed Normal [facility] Serum creatinine measurement (mass/volume)Ordered By: Jasbir Curry on 02-10-2025 Creatinine [Mass/Vol] 1.09 mg/dL 0.70-1.20 [facility] Serum glucose measurement (m ass/volume)Ordered By: Jasbir Curry on 02-10-2025 Glucose [Mass/Vol] 255 mg/dL High 70-99 [facility] Serum or plasma calcium jessica urement (mass/volume)Ordered By: Jasbir Curry on 02-10-2025 Calcium [Mass/Vol] 9.1 mg/dL 7.6-11.0 [facility] Serum or plasma urea nitroge n measurement (mass/volume)Ordered By: Jasbir Curry on 02-10-2025 Urea nitrogen [Mass/Vol] 24 mg/dL High 4-19 [facility] Sodium levelOrdered By: Trey Curry on 02-10-2025 Sodium [Moles/Vol] 137 mmol/L 133-145 [facility] T4 Free Directon 02-10-2025 T4 FREE DIRECT 1.20 ng/dL Normal 0.76-1.46 [facility] Comment on above: Performed By: #### L 501.4021, L506.0400, L501.9520, L100.0100, L503.7505, L500.2500 #### [facility] Laboratory [address] [place], [address] T4 freeOrdered By: Jasbir jennings on 02-10-2025 Free T4 [Mass/Vol] 1.20 ng/dL 0.76-1.46 [facility] TSH DL <= 0.005 mIU/L QnOrde red By: Jasbir Curry on 02-10-2025 Thyroid Stimulating Hormone (TSH) 3.160 uIU/mL 0.300-4.200 [facility] Thyroid Stim Hormone (TSH)on 02-10-2025 TSH 3.160 uIU/mL Normal 0.300-4.200 [facility] Comment on above: Performed By: #### L 501.4021, L506.0400, L501.9520, L100.0100, L503.7505, L500.2500 #### [facility] Laboratory [address] [place], [address] Troponin T.cardiac High sens itivity method [Mass/Vol]Ordered By: Jasbir Curry on 02-10-2025 Troponin T High Sensitivity 2 Hour 24 ng/L High <22 [facility] Venous Blood Gason Blood Gas Type TAMIKA Normal [facility] Comment on above: Performed By: #### L 501.4021, L506.0400, L501.9520, L100.0100, L503.7505, L500.2500 #### [facility] [address] [place], [address] CO2 [Moles/Vol] 30 mmol/L Normal 23-33 [facility] Comment on above: Performed By: #### L 501.4021, L506.0400, L501.9520, L100.0100, L503.7505, L500.2500 #### [facility] [address] [place], [address] HCO3 (Bld) [Moles/Vol] 28 mmol/L High 22-26 [facility] Comment on above: Performed By: #### L 501.4021, L506.0400, L501.9520, L100.0100, L503.7505, L500.2500 #### [facility] [address] [place], [address] O2 Delivery Dev Room Air Normal [facility] Comment on above: Performed By: #### L 501.4021, L506.0400, L501.9520, L100.0100, L503.7505, L500.2500 #### [facility] [address] [place], [address] SITE Not entered Normal [facility] Comment on above: Performed By: #### L 501.4021, L506.0400, L501.9520, L100.0100, L503.7505, L500.2500 #### [facility] [address] [place], [address] VBG BE 3 mmol/L Normal -1.0-3.5 [facility] Comment on above: Performed By: #### L 501.4021, L506.0400, L501.9520, L100.0100, L503.7505, L500.2500 #### [facility] [address] [place], [address] VBG pCO2 47.6 mmHg Normal 41-51 [facility] Comment on above: Performed By: #### L 501.4021, L506.0400, L501.9520, L100.0100, L503.7505, L500.2500 #### [facility] [address] [place], [address] VBG pH 7.38 Normal 7.32-7.42 [facility] Comment on above: Performed By: #### L 501.4021, L506.0400, L501.9520, L100.0100, L503.7505, L500.2500 #### [facility] [address] [place], [address] VBG PO2 52 mmHg High 25-40 [facility] Comment on above: Performed By: #### L 501.4021, L506.0400, L501.9520, L100.0100, L503.7505, L500.2500 #### [facility] [address] [place], [address] VBG SO2 85 High 50-70 [facility] Comment on above: Performed By: #### L 501.4021, L506.0400, L501.9520, L100.0100, L503.7505, L500.2500 #### [facility] [address] [place], [address] Venous blood bicarbonate adria surementOrdered By: Jasbir Curry on 02-10-2025 HCO3 (Bld) [Moles/Vol] 28 mmol/L High 22-26 [facility] Venous blood oxygen saturati on measurementOrdered By: Jasbir Curry on 02-10-2025 Oxygen saturation in Blood 85 % High 50-70 [facility] White blood cell (WBC) count Ordered By: Jasbir Curry on 02-10-2025 WBC (Bld) [#/Vol] 9.4 10*3/uL 4.4-11.0 [facility] pH (BldV)Ordered By: Jasbir thomas on 02-10-2025 Venous Blood pH 7.38 7.32-7.42 [facility] Vitamin D 1,25-Dihydroxyon 1 12-14-2023 VIT D 1,25 DIHY 45.5 pg/mL Normal 24.8-81.5 [facility] Comment on above: Result Comment: Perf ormed at: [facility] [id number] [address] Appraiser: Saundra Anderson MD, Phone: [phone] Performed By: #### L 501.4021, L506.0400, L501.9520, L100.0100, L503.7505, L500.2500 #### [facility] [address] [place], [address] Basic Metabolic Profile (BMP )on 10-13-2024 BUN/CRE 32.6 RATIO High 10-20 [facility] Comment on above: Performed By: #### L 501.4021, L506.0400, L501.9520, L100.0100, L503.7505, L500.2500 #### [facility] [address] [place], [address] CA,Total 8.9 mg/dL Normal 8.5-10.1 [facility] Comment on above: Performed By: #### L 501.4021, L506.0400, L501.9520, L100.0100, L503.7505, L500.2500 #### [facility] [address] [place], [address] Chloride [Moles/Vol] 105 mmol/L Normal 98-107 [facility] Comment on above: Performed By: #### L 501.4021, L506.0400, L501.9520, L100.0100, L503.7505, L500.2500 #### [facility] [address] [place], [address] CO2 [Moles/Vol] 26.0 mmol/L Normal 21.0-32.0 [facility] Comment on above: Performed By: #### L 501.4021, L506.0400, L501.9520, L100.0100, L503.7505, L500.2500 #### [facility] [address] [place], [address] Creatinine [Mass/Vol] 1.32 mg/dL High 0.70-1.30 [facility] Comment on above: Result Comment: The validity of the calculated GFR GFRAA in patients over 70 years has not been determined. Clinical correlation is essential. Performed By: #### L 501.4021, L506.0400, L501.9520, L100.0100, L503.7505, L500.2500 #### [facility] [address] [place], [address] ECRCL 78.14 ml/min Normal [facility] Comment on above: Performed By: #### L 501.4021, L506.0400, L501.9520, L100.0100, L503.7505, L500.2500 #### [facility] [address] [place], [address] EST GFR - AA 73 mL/min Normal >60 [facility] Comment on above: Result Comment: Afri can Burmese GFR Calc Performed By: #### L 501.4021, L506.0400, L501.9520, L100.0100, L503.7505, L500.2500 #### [facility] [address] [place], [address] GAP 4 Low 5-15 [facility] Comment on above: Performed By: #### L 501.4021, L506.0400, L501.9520, L100.0100, L503.7505, L500.2500 #### [facility] [address] [place], [address] GFR/1.73 sq M.predicted among non-blacks MDRD (S/P/Bld) [Vol rate/Area] 60 mL/min/{1.73_m2} Normal >60 [facility] Comment on above: Result Comment: Non- GFR Calc Performed By: #### L 501.4021, L506.0400, L501.9520, L100.0100, L503.7505, L500.2500 #### [facility] [address] [place], [address] Glucose [Mass/Vol] 271 mg/dL High 74-106 [facility] Comment on above: Result Comment: Gluc ose result greater than or equal to 200 mg/dL suggests DIABETES MELLITUS per A.D.A. criteria. Performed By: #### L 501.4021, L506.0400, L501.9520, L100.0100, L503.7505, L500.2500 #### [facility] [address] [place], [address] Potassium [Moles/Vol] 4.6 mmol/L Normal 3.5-5.1 [facility] Comment on above: Result Comment: Slig ht Hemolysis, Result may be falsely increased. Performed By: #### L 501.4021, L506.0400, L501.9520, L100.0100, L503.7505, L500.2500 #### [facility] [address] [place], [address] Sodium [Moles/Vol] 135 mmol/L Low 136-145 [facility] Comment on above: Performed By: #### L 501.4021, L506.0400, L501.9520, L100.0100, L503.7505, L500.2500 #### [facility] [address] [place], [address] Urea nitrogen [Mass/Vol] 43 mg/dL High 7-18 [facility] Comment on above: Performed By: #### L 501.4021, L506.0400, L501.9520, L100.0100, L503.7505, L500.2500 #### [facility] [address] [place], [address] Bedside Glucoseon 10-13-2024 FINGERSTICK GLU 370 mg/dL High 74-106 [facility] Comment on above: Result Comment: CARLOS GEMENT OF PATIENT CARE PER NURSING PROTOCOL Performed By: #### L 501.4021, L506.0400, L501.9520, L100.0100, L503.7505, L500.2500 #### [facility] [address] [place], [address] FINGERSTICK GLU 262 mg/dL High 74-106 [facility] Comment on above: Result Comment: CARLOS GEMENT OF PATIENT CARE PER NURSING PROTOCOL Performed By: #### L 501.4021, L506.0400, L501.9520, L100.0100, L503.7505, L500.2500 #### [facility] [address] [place], [address] CBC W/Diff, Automatedon 11-2 5-2023 Absolute Lymph 1.69 X10 3/uL Normal 0.83-4.51 [facility] Comment on above: Performed By: #### L 501.4021, L506.0400, L501.9520, L100.0100, L503.7505, L500.2500 #### [facility] [address] [place], [address] Absolute Neut 17.9 X10 3/uL High 2.0-7.7 [facility] Comment on above: Performed By: #### L 501.4021, L506.0400, L501.9520, L100.0100, L503.7505, L500.2500 #### [facility] [address] [place], [address] Basophils/100 WBC (Bld) 0.1 % Normal 0-1 [facility] Comment on above: Performed By: #### L 501.4021, L506.0400, L501.9520, L100.0100, L503.7505, L500.2500 #### [facility] [address] [place], [address] Eosinophils/100 WBC (Bld) 0.0 % Normal 0-5 [facility] Comment on above: Performed By: #### L 501.4021, L506.0400, L501.9520, L100.0100, L503.7505, L500.2500 #### [facility] [address] [place], [address] Erythrocyte distribution width (RBC) [Ratio] 13.2 % Normal 11.6-14.6 [facility] Comment on above: Performed By: #### L 501.4021, L506.0400, L501.9520, L100.0100, L503.7505, L500.2500 #### [facility] [address] [place], [address] Hematocrit (Bld) [Volume fraction] 40.8 % Normal 40-54 [facility] Comment on above: Performed By: #### L 501.4021, L506.0400, L501.9520, L100.0100, L503.7505, L500.2500 #### [facility] [address] [place], [address] Hemoglobin (Bld) [Mass/Vol] 12.9 g/dL Low 13.0-16.5 [facility] Comment on above: Performed By: #### L 501.4021, L506.0400, L501.9520, L100.0100, L503.7505, L500.2500 #### [facility] [address] [place], [address] IG% 1.000 High 0.0-0.9 [facility] Comment on above: Result Comment: IG% - Immature Granulocytes (promyelocytes, myelocytes and metamyelocytes) > 1% indicates that a LEFT SHIFT is Present. Performed By: #### L 501.4021, L506.0400, L501.9520, L100.0100, L503.7505, L500.2500 #### [facility] [address] [place], [address] Lymphocytes/100 WBC (Bld) 8.3 % Low 19-41 [facility] Comment on above: Performed By: #### L 501.4021, L506.0400, L501.9520, L100.0100, L503.7505, L500.2500 #### [facility] [address] [place], [address] MCH (RBC) [Entitic mass] 27.7 pg Normal 27.0-32.0 [facility] Comment on above: Performed By: #### L 501.4021, L506.0400, L501.9520, L100.0100, L503.7505, L500.2500 #### [facility] [address], [address] MCHC (RBC) [Mass/Vol] 31.6 g/dL Low 32-36 [facility] Comment on above: Performed By: #### L 501.4021, L506.0400, L501.9520, L100.0100, L503.7505, L500.2500 #### [facility] [address] [place], [address] MCV (RBC) [Entitic vol] 87.6 fL Normal 80-94 [facility] Comment on above: Performed By: #### L 501.4021, L506.0400, L501.9520, L100.0100, L503.7505, L500.2500 #### [facility] [address] [place], [address] Monocytes/100 WBC (Bld) 3.0 % Normal 0-10 [facility] Comment on above: Performed By: #### L 501.4021, L506.0400, L501.9520, L100.0100, L503.7505, L500.2500 #### [facility] [address] [place], [address] Neutrophils/100 WBC (Bld) 87.6 % High 47-70 [facility] Comment on above: Performed By: #### L 501.4021, L506.0400, L501.9520, L100.0100, L503.7505, L500.2500 #### [facility] [address] [place], [address] Nucleated RBC (Bld) [#/Vol] 0 10*3/uL Normal 0-5 [facility] Comment on above: Performed By: #### L 501.4021, L506.0400, L501.9520, L100.0100, L503.7505, L500.2500 #### [facility] [address] [place], [address] Platelet mean volume (Bld) [Entitic vol] 10.9 fL Normal 6.2-12.0 [facility] Comment on above: Performed By: #### L 501.4021, L506.0400, L501.9520, L100.0100, L503.7505, L500.2500 #### [facility] [address] [place], [address] Platelets (Bld) [#/Vol] 375 10*3/uL Normal 150-450 [facility] Comment on above: Performed By: #### L 501.4021, L506.0400, L501.9520, L100.0100, L503.7505, L500.2500 #### [facility] [address] [place], [address] RBC (Bld) [#/Vol] 4.66 10*6/uL Normal 4.6-6.2 [facility] Comment on above: Performed By: #### L 501.4021, L506.0400, L501.9520, L100.0100, L503.7505, L500.2500 #### [facility] [address] [place], [address] RDW SD 42.4 fl Normal 35.1-43.9 [facility] Comment on above: Performed By: #### L 501.4021, L506.0400, L501.9520, L100.0100, L503.7505, L500.2500 #### [facility] [address] [place], [address] WBC (Bld) [#/Vol] 20.4 10*3/uL High 4.4-11.0 [facility] Comment on above: Performed By: #### L 501.4021, L506.0400, L501.9520, L100.0100, L503.7505, L500.2500 #### [facility] [address] [place], [address] Discharge Instructionon 09-20 Discharge Instruction [facility] Medical Records Department [address] [place] [address] Instructions for Home/Discharge Instructions 10/13/24 1303 MR#: [id number] Acct: [id number] Name: LATONYA ELDER Rep #: [id number] : 1970 54 From: Manuelito Green DO [...] Up: Mal Mcdonnell PA [Med Staff - Formerly [facility] Practice Prof] - 10/29/24 10:30 am 10/13/24 1332 Manuelito Green DO CC: Dr. Mitchell Deras DO; Dr. Beka Bowie MD; Dr. Nasim Leblanc MD Signed Normal [facility] Respiratory Cultureon 2023 RESPC SENT LABEL TO PCU FOR COLLECTION Mixed normal respiratory katya. No Haemophilus, Streptococcus pneumoniae, beta-hemolytic Streptococcus or Staphylococcus aureus isolated. [facility] Comment on above: Performed By: #### L 503.6005, L300.3900, L501.5425, L100.0100, L500.2500, L300.4310, L503.6620 #### [facility] Laboratory [address] [place], [address] 12 Lead EKGon 10-12-2024 12 Lead EKG [facility] Cardiovascular Services [address] [place] [address] 12 Lead EKG 10/12/24 1446 MR#: [id number] Acct: [id number] Name: LATONYA ELDER Rep #: [id number] : 1970 54 From: Harvey Murphy MD Attending Dr: Dr. Manuelito Green DO Status: A DM IN Ordering Dr: Nasim Leblanc MD Date: 10/12/24 Location: [facility] Sex: M C Admitted: 10/11/24 Test Reason [...] DATA IS UNCONFIRMED Confirmed by Harvey Murphy ([id number]), mapping editor EVELIO CURRY ([id number]) on 10/13/2024 9:57:29 AM Referred By: Confirmed By: Harvey Murphy 10/13/24 0957 Date Harvey Murphy MD CC: Dr. Beka Bowie MD; Dr. Manuelito Green DO; Dr. Nasim Leblanc MD Signed Normal [facility] BNP,B-Type NATRIURETIC PEPTI Willow 10-12-2024 Natriuretic peptide B (Bld) [Mass/Vol] 148.6 pg/mL High 0-100 [facility] Comment on above: Performed By: #### L 501.4021, L506.0400, L501.9520, L100.0100, L503.7505, L500.2500 #### [facility] Laboratory [address] [place], [address] Bedside Glucoseon 10-12-2024 FINGERSTICK GLU 197 mg/dL High 74-106 [facility] Comment on above: Result Comment: CARLOS GEMENT OF PATIENT CARE PER NURSING PROTOCOL Performed By: #### L 501.4021, L506.0400, L501.9520, L100.0100, L503.7505, L500.2500 #### [facility] Laboratory [address] [place], [address] FINGERSTICK GLU 79 mg/dL Normal 74-106 [facility] Comment on above: Result Comment: CARLOS GEMENT OF PATIENT CARE PER NURSING PROTOCOL Performed By: #### L 501.4021, L506.0400, L501.9520, L100.0100, L503.7505, L500.2500 #### [facility] Laboratory [address] [place], [address] FINGERSTICK GLU 229 mg/dL High 74-106 [facility] Comment on above: Result Comment: CARLOS GEMENT OF PATIENT CARE PER NURSING PROTOCOL Performed By: #### L 501.4021, L506.0400, L501.9520, L100.0100, L503.7505, L500.2500 #### [facility] Laboratory [address] [place], [address] FINGERSTICK GLU 338 mg/dL High 74-106 [facility] Comment on above: Result Comment: CARLOS GEMENT OF PATIENT CARE PER NURSING PROTOCOL Performed By: #### L 501.4021, L506.0400, L501.9520, L100.0100, L503.7505, L500.2500 #### [facility] [address] [place], [address] FINGERSTICK GLU 448 mg/dL High 74-106 [facility] Comment on above: Result Comment: CARLOS GEMENT OF PATIENT CARE PER NURSING PROTOCOL Performed By: #### L 501.4021, L506.0400, L501.9520, L100.0100, L503.7505, L500.2500 #### [facility] [address] [place], [address] FINGERSTICK GLU 342 mg/dL High 74-106 [facility] Comment on above: Result Comment: CARLOS GEMENT OF PATIENT CARE PER NURSING PROTOCOL Performed By: #### L 501.4021, L506.0400, L501.9520, L100.0100, L503.7505, L500.2500 #### [facility] [address] [place], [address] CBC W/Diff, Automatedon 09-20 Absolute Lymph 1.49 X10 3/uL Normal 0.83-4.51 [facility] Comment on above: Performed By: #### L 501.4021, L506.0400, L501.9520, L100.0100, L503.7505, L500.2500 #### [facility] Laboratory [address] [place], [address] Absolute Neut 12.0 X10 3/uL High 2.0-7.7 [facility] Comment on above: Performed By: #### L 501.4021, L506.0400, L501.9520, L100.0100, L503.7505, L500.2500 #### [facility] [address] [place], [address] Basophils/100 WBC (Bld) 0.0 % Normal 0-1 [facility] Comment on above: Performed By: #### L 501.4021, L506.0400, L501.9520, L100.0100, L503.7505, L500.2500 #### [facility] [address] [place], [address] Eosinophils/100 WBC (Bld) 0.0 % Normal 0-5 [facility] Comment on above: Performed By: #### L 501.4021, L506.0400, L501.9520, L100.0100, L503.7505, L500.2500 #### [facility] [address] [place], [address] Erythrocyte distribution width (RBC) [Ratio] 13.0 % Normal 11.6-14.6 [facility] Comment on above: Performed By: #### L 501.4021, L506.0400, L501.9520, L100.0100, L503.7505, L500.2500 #### [facility] [address] [place], [address] Hematocrit (Bld) [Volume fraction] 40.3 % Normal 40-54 [facility] Comment on above: Performed By: #### L 501.4021, L506.0400, L501.9520, L100.0100, L503.7505, L500.2500 #### [facility] [address] [place], [address] Hemoglobin (Bld) [Mass/Vol] 12.9 g/dL Low 13.0-16.5 [facility] Comment on above: Performed By: #### L 501.4021, L506.0400, L501.9520, L100.0100, L503.7505, L500.2500 #### [facility] [address] [place], [address] IG% 0.900 Normal 0.0-0.9 [facility] Comment on above: Result Comment: IG% - Immature Granulocytes (promyelocytes, myelocytes and metamyelocytes) > 1% indicates that a LEFT SHIFT is Present. Performed By: #### L 501.4021, L506.0400, L501.9520, L100.0100, L503.7505, L500.2500 #### [facility] [address] [place], [address] Lymphocytes/100 WBC (Bld) 10.6 % Low 19-41 [facility] Comment on above: Performed By: #### L 501.4021, L506.0400, L501.9520, L100.0100, L503.7505, L500.2500 #### [facility] [address] [place], [address] MCH (RBC) [Entitic mass] 27.6 pg Normal 27.0-32.0 [facility] Comment on above: Performed By: #### L 501.4021, L506.0400, L501.9520, L100.0100, L503.7505, L500.2500 #### [facility] [address] [place], [address] MCHC (RBC) [Mass/Vol] 32.0 g/dL Normal 32-36 [facility] Comment on above: Performed By: #### L 501.4021, L506.0400, L501.9520, L100.0100, L503.7505, L500.2500 #### [facility] [address] [place], [address] MCV (RBC) [Entitic vol] 86.1 fL Normal 80-94 [facility] Comment on above: Performed By: #### L 501.4021, L506.0400, L501.9520, L100.0100, L503.7505, L500.2500 #### [facility] [address] [place], [address] Monocytes/100 WBC (Bld) 3.6 % Normal 0-10 [facility] Comment on above: Performed By: #### L 501.4021, L506.0400, L501.9520, L100.0100, L503.7505, L500.2500 #### [facility] [address] [place], [address] Neutrophils/100 WBC (Bld) 84.9 % High 47-70 [facility] Comment on above: Performed By: #### L 501.4021, L506.0400, L501.9520, L100.0100, L503.7505, L500.2500 #### [facility] [address] [place], [address] Nucleated RBC (Bld) [#/Vol] 0 10*3/uL Normal 0-5 [facility] Comment on above: Performed By: #### L 501.4021, L506.0400, L501.9520, L100.0100, L503.7505, L500.2500 #### [facility] [address] [place], [address] Platelet mean volume (Bld) [Entitic vol] 11.1 fL Normal 6.2-12.0 [facility] Comment on above: Performed By: #### L 501.4021, L506.0400, L501.9520, L100.0100, L503.7505, L500.2500 #### [facility] [address] [place], [address] Platelets (Bld) [#/Vol] 378 10*3/uL Normal 150-450 [facility] Comment on above: Performed By: #### L 501.4021, L506.0400, L501.9520, L100.0100, L503.7505, L500.2500 #### [facility] [address] [place], [address] RBC (Bld) [#/Vol] 4.68 10*6/uL Normal 4.6-6.2 [facility] Comment on above: Performed By: #### L 501.4021, L506.0400, L501.9520, L100.0100, L503.7505, L500.2500 #### [facility] [address] [place], [address] RDW SD 40.6 fl Normal 35.1-43.9 [facility] Comment on above: Performed By: #### L 501.4021, L506.0400, L501.9520, L100.0100, L503.7505, L500.2500 #### [facility] [address] [place], [address] WBC (Bld) [#/Vol] 14.1 10*3/uL High 4.4-11.0 [facility] Comment on above: Performed By: #### L 501.4021, L506.0400, L501.9520, L100.0100, L503.7505, L500.2500 #### [facility] [address] [place], [address] Comprehensive Metabolic Prof ilon 10-12-2024 Albumin [Mass/Vol] 2.7 g/dL Low 3.2-5.0 [facility] Comment on above: Performed By: #### L 501.4021, L506.0400, L501.9520, L100.0100, L503.7505, L500.2500 #### [facility] [address] [place], [address] Albumin/Globulin [Mass ratio] 0.6 {ratio} Low 0.9-2.4 [facility] Comment on above: Performed By: #### L 501.4021, L506.0400, L501.9520, L100.0100, L503.7505, L500.2500 #### [facility] [address] [place], [address] ALK P 87 U/L Normal 45-117 [facility] Comment on above: Performed By: #### L 501.4021, L506.0400, L501.9520, L100.0100, L503.7505, L500.2500 #### [facility] [address] [place], [address] ALT [Catalytic activity/Vol] 20 U/L Normal 16-61 [facility] Comment on above: Performed By: #### L 501.4021, L506.0400, L501.9520, L100.0100, L503.7505, L500.2500 #### [facility] [address] [place], [address] AST [Catalytic activity/Vol] 7 U/L Low 15-37 [facility] Comment on above: Performed By: #### L 501.4021, L506.0400, L501.9520, L100.0100, L503.7505, L500.2500 #### [facility] [address] [place], [address] Bilirubin [Mass/Vol] 0.40 mg/dL Normal 0.20-1.00 [facility] Comment on above: Result Comment: For patients on eltrombopag therapy, use of Dimension [place] TBIL is not recommended. Performed By: #### L 501.4021, L506.0400, L501.9520, L100.0100, L503.7505, L500.2500 #### [facility] [address] [place], [address] BUN/CRE 27.0 RATIO High 10-20 [facility] Comment on above: Performed By: #### L 501.4021, L506.0400, L501.9520, L100.0100, L503.7505, L500.2500 #### [facility] [address] [place], [address] CA,Total 9.2 mg/dL Normal 8.5-10.1 [facility] Comment on above: Performed By: #### L 501.4021, L506.0400, L501.9520, L100.0100, L503.7505, L500.2500 #### [facility] [address] [place], [address] Chloride [Moles/Vol] 99 mmol/L Normal 98-107 [facility] Comment on above: Performed By: #### L 501.4021, L506.0400, L501.9520, L100.0100, L503.7505, L500.2500 #### [facility] [address] [place], [address] CO2 [Moles/Vol] 25.0 mmol/L Normal 21.0-32.0 [facility] Comment on above: Performed By: #### L 501.4021, L506.0400, L501.9520, L100.0100, L503.7505, L500.2500 #### [facility] [address] [place], [address] Creatinine [Mass/Vol] 1.26 mg/dL Normal 0.70-1.30 [facility] Comment on above: Result Comment: The validity of the calculated GFR GFRAA in patients over 70 years has not been determined. Clinical correlation is essential. Performed By: #### L 501.4021, L506.0400, L501.9520, L100.0100, L503.7505, L500.2500 #### [facility] [address] [place], [address] ECRCL 80.25 ml/min Normal [facility] Comment on above: Performed By: #### L 501.4021, L506.0400, L501.9520, L100.0100, L503.7505, L500.2500 #### [facility] [address] [place], [address] EST GFR - AA 77 mL/min Normal >60 [facility] Comment on above: Result Comment: Afri can Burmese GFR Calc Performed By: #### L 501.4021, L506.0400, L501.9520, L100.0100, L503.7505, L500.2500 #### [facility] [address] [place], [address] GAP 9 Normal 5-15 [facility] Comment on above: Performed By: #### L 501.4021, L506.0400, L501.9520, L100.0100, L503.7505, L500.2500 #### [facility] [address] [place], [address] GFR/1.73 sq M.predicted among non-blacks MDRD (S/P/Bld) [Vol rate/Area] 64 mL/min/{1.73_m2} Normal >60 [facility] Comment on above: Result Comment: Non- GFR Calc Performed By: #### L 501.4021, L506.0400, L501.9520, L100.0100, L503.7505, L500.2500 #### [facility] [address] [place], [address] Globulin (S) [Mass/Vol] 4.2 g/dL Normal 2.2-4.2 [facility] Comment on above: Performed By: #### L 501.4021, L506.0400, L501.9520, L100.0100, L503.7505, L500.2500 #### [facility] [address] [place], [address] Glucose [Mass/Vol] 375 mg/dL High 74-106 [facility] Comment on above: Result Comment: Gluc ose result greater than or equal to 200 mg/dL suggests DIABETES MELLITUS per A.D.A. criteria. Performed By: #### L 501.4021, L506.0400, L501.9520, L100.0100, L503.7505, L500.2500 #### [facility] [address] [place], [address] Potassium [Moles/Vol] 4.0 mmol/L Normal 3.5-5.1 [facility] Comment on above: Performed By: #### L 501.4021, L506.0400, L501.9520, L100.0100, L503.7505, L500.2500 #### [facility] [address] [place], [address] Sodium [Moles/Vol] 133 mmol/L Low 136-145 [facility] Comment on above: Performed By: #### L 501.4021, L506.0400, L501.9520, L100.0100, L503.7505, L500.2500 #### [facility] [address] [place], [address] T PROT 6.9 g/dL Normal 6.4-8.2 [facility] Comment on above: Performed By: #### L 501.4021, L506.0400, L501.9520, L100.0100, L503.7505, L500.2500 #### [facility] [address] [place], [address] Urea nitrogen [Mass/Vol] 34 mg/dL High 7-18 [facility] Comment on above: Performed By: #### L 501.4021, L506.0400, L501.9520, L100.0100, L503.7505, L500.2500 #### [facility] [address] [place], [address] Magnesiumon 10-12-2024 Magnesium [Mass/Vol] 1.9 mg/dL Normal 1.6-2.6 [facility] Comment on above: Performed By: #### L 501.4021, L506.0400, L501.9520, L100.0100, L503.7505, L500.2500 #### [facility] [address] [place], [address] Phosphoruson 10-12-2024 Phosphate [Mass/Vol] 3.3 mg/dL Normal 2.5-4.9 [facility] Comment on above: Performed By: #### L 501.4021, L506.0400, L501.9520, L100.0100, L503.7505, L500.2500 #### [facility] [address] [place], [address] BNP,B-Type NATRIURETIC PEPTI Willow 10-11-2024 Natriuretic peptide B (Bld) [Mass/Vol] 206.7 pg/mL High 0-100 [facility] Comment on above: Performed By: #### L 501.4021, L506.0400, L501.9520, L100.0100, L503.7505, L500.2500 #### [facility] [address] [place], [address] Bedside Glucoseon 10-11-2024 FINGERSTICK GLU 268 mg/dL High 74-106 [facility] Comment on above: Result Comment: CARLOS BONILLA OF PATIENT CARE PER NURSING PROTOCOL Performed By: #### L 501.4021, L506.0400, L501.9520, L100.0100, L503.7505, L500.2500 #### [facility] [address] [place], [address] FINGERSTICK GLU 358 mg/dL High 74-106 [facility] Comment on above: Result Comment: CARLOS GEMENT OF PATIENT CARE PER NURSING PROTOCOL Performed By: #### L 503.6005, L300.3900, L501.5425, L100.0100, L500.2500, L300.4310, L503.6620 #### [facility] [address] [facility] [address] FINGERSTICK GLU 272 mg/dL High 74-106 [facility] Comment on above: Result Comment: CARLOS GEMENT OF PATIENT CARE PER NURSING PROTOCOL Performed By: #### L 501.4021, L506.0400, L501.9520, L100.0100, L503.7505, L500.2500 #### [facility] [address] [facility] [address] FINGERSTICK GLU 284 mg/dL High 74-106 [facility] Comment on above: Result Comment: CARLOS GEMENT OF PATIENT CARE PER NURSING PROTOCOL Performed By: #### L 501.4021, L506.0400, L501.9520, L100.0100, L503.7505, L500.2500 #### [facility] [address] [facility] [address] FINGERSTICK GLU 252 mg/dL High 74-106 [facility] Comment on above: Result Comment: CARLOS GEMENT OF PATIENT CARE PER NURSING PROTOCOL Performed By: #### L 503.6005, L300.3900, L501.5425, L100.0100, L500.2500, L300.4310, L503.6620 #### [facility] [address] [facility] [address] FINGERSTICK GLU 152 mg/dL High 74-106 [facility] Comment on above: Result Comment: CARLOS GEMENT OF PATIENT CARE PER NURSING PROTOCOL Performed By: #### L 501.080 #### [facility] [address] [place], [address] CBC W/Diff, Automatedon 11-2 -2023 Absolute Lymph 1.52 X10 3/uL Normal 0.83-4.51 [facility] Comment on above: Performed By: #### L 501.4021, L506.0400, L501.9520, L100.0100, L503.7505, L500.2500 #### [facility] [address] [place], [address] Absolute Neut 10.1 X10 3/uL High 2.0-7.7 [facility] Comment on above: Performed By: #### L 501.4021, L506.0400, L501.9520, L100.0100, L503.7505, L500.2500 #### [facility] [address] [place], [address] Basophils/100 WBC (Bld) 0.5 % Normal 0-1 [facility] Comment on above: Performed By: #### L 501.4021, L506.0400, L501.9520, L100.0100, L503.7505, L500.2500 #### [facility] [address] [place], [address] Eosinophils/100 WBC (Bld) 1.1 % Normal 0-5 [facility] Comment on above: Performed By: #### L 501.4021, L506.0400, L501.9520, L100.0100, L503.7505, L500.2500 #### [facility] [address] [place], [address] Erythrocyte distribution width (RBC) [Ratio] 13.3 % Normal 11.6-14.6 [facility] Comment on above: Performed By: #### L 501.4021, L506.0400, L501.9520, L100.0100, L503.7505, L500.2500 #### [facility] [address] [place], [address] Hematocrit (Bld) [Volume fraction] 42.6 % Normal 40-54 [facility] Comment on above: Performed By: #### L 501.4021, L506.0400, L501.9520, L100.0100, L503.7505, L500.2500 #### [facility] [address] [place], [address] Hemoglobin (Bld) [Mass/Vol] 13.2 g/dL Normal 13.0-16.5 [facility] Comment on above: Performed By: #### L 501.4021, L506.0400, L501.9520, L100.0100, L503.7505, L500.2500 #### [facility] [address] [place], [address] IG% 0.400 Normal 0.0-0.9 [facility] Comment on above: Result Comment: IG% - Immature Granulocytes (promyelocytes, myelocytes and metamyelocytes) > 1% indicates that a LEFT SHIFT is Present. Performed By: #### L 501.4021, L506.0400, L501.9520, L100.0100, L503.7505, L500.2500 #### [facility] [address] [place], [address] Lymphocytes/100 WBC (Bld) 12.3 % Low 19-41 [facility] Comment on above: Performed By: #### L 501.4021, L506.0400, L501.9520, L100.0100, L503.7505, L500.2500 #### [facility] [address] [place], [address] MCH (RBC) [Entitic mass] 27.3 pg Normal 27.0-32.0 [facility] Comment on above: Performed By: #### L 501.4021, L506.0400, L501.9520, L100.0100, L503.7505, L500.2500 #### [facility] [address] [place], [address] MCHC (RBC) [Mass/Vol] 31.0 g/dL Low 32-36 [facility] Comment on above: Performed By: #### L 501.4021, L506.0400, L501.9520, L100.0100, L503.7505, L500.2500 #### [facility] [address] [place], [address] MCV (RBC) [Entitic vol] 88.2 fL Normal 80-94 [facility] Comment on above: Performed By: #### L 501.4021, L506.0400, L501.9520, L100.0100, L503.7505, L500.2500 #### [facility] [address] [place], [address] Monocytes/100 WBC (Bld) 3.9 % Normal 0-10 [facility] Comment on above: Performed By: #### L 501.4021, L506.0400, L501.9520, L100.0100, L503.7505, L500.2500 #### [facility] [address] [place], [address] Neutrophils/100 WBC (Bld) 81.8 % High 47-70 [facility] Comment on above: Performed By: #### L 501.4021, L506.0400, L501.9520, L100.0100, L503.7505, L500.2500 #### [facility] [address] [place], [address] Nucleated RBC (Bld) [#/Vol] 0 10*3/uL Normal 0-5 [facility] Comment on above: Performed By: #### L 501.4021, L506.0400, L501.9520, L100.0100, L503.7505, L500.2500 #### [facility] [address] [place], [address] Platelet mean volume (Bld) [Entitic vol] 10.7 fL Normal 6.2-12.0 [facility] Comment on above: Performed By: #### L 501.4021, L506.0400, L501.9520, L100.0100, L503.7505, L500.2500 #### [facility] [address] [place], [address] Platelets (Bld) [#/Vol] 350 10*3/uL Normal 150-450 [facility] Comment on above: Performed By: #### L 501.4021, L506.0400, L501.9520, L100.0100, L503.7505, L500.2500 #### [facility] [address] [place], [address] RBC (Bld) [#/Vol] 4.83 10*6/uL Normal 4.6-6.2 [facility] Comment on above: Performed By: #### L 501.4021, L506.0400, L501.9520, L100.0100, L503.7505, L500.2500 #### [facility] [address] [place], [address] RDW SD 43.4 fl Normal 35.1-43.9 [facility] Comment on above: Performed By: #### L 501.4021, L506.0400, L501.9520, L100.0100, L503.7505, L500.2500 #### [facility] [address] [place], [address] WBC (Bld) [#/Vol] 12.3 10*3/uL High 4.4-11.0 [facility] Comment on above: Performed By: #### L 501.4021, L506.0400, L501.9520, L100.0100, L503.7505, L500.2500 #### [facility] [address] [place], [address] Chest 1 View (Portable)on Chest 1 View (Portable) [facility] Imaging Services [address] [place] [address] Chest 1 View (Portable) MR#: [id number] Acct: [id number] Name: LATONYA ELDER Rep #: [id number] : 1970 M 54 From: Danya Torrez PCP: Dr. Beka Bowie MD Status: ADM IN Study: Chest 1 View (Portable) Date of Exam: 10/11/24 Exam# [id number] Ordering Dr: Mitchell Deras DO -[id number] INDICATION: AE CHF EXAMINATION/TECHNIQ UE: X-RAY [...] Mitchell Deras DO; Dr. 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, [address] Albumin/Globulin [Mass ratio] 0.7 {ratio} Low 0.9-2.4 [facility] Comment on above: Performed By: #### L 501.4021, L506.0400, L501.9520, L100.0100, L503.7505, L500.2500 #### [facility] [address] [place], [address] ALK P 93 U/L Normal 45-117 [facility] Comment on above: Performed By: #### L 501.4021, L506.0400, L501.9520, L100.0100, L503.7505, L500.2500 #### [facility] [address] [place], [address] ALT [Catalytic activity/Vol] 20 U/L Normal 16-61 [facility] Comment on above: Performed By: #### L 501.4021, L506.0400, L501.9520, L100.0100, L503.7505, L500.2500 #### [facility] [address] [place], [address] AST [Catalytic activity/Vol] 13 U/L Low 15-37 [facility] Comment on above: Performed By: #### L 501.4021, L506.0400, L501.9520, L100.0100, L503.7505, L500.2500 #### [facility] [address] [place], [address] Bilirubin [Mass/Vol] 0.60 mg/dL Normal 0.20-1.00 [facility] Comment on above: Result Comment: For patients on eltrombopag therapy, use of Dimension [place] TBIL is not recommended. Performed By: #### L 501.4021, L506.0400, L501.9520, L100.0100, L503.7505, L500.2500 #### [facility] [address] [place], [address] BUN/CRE 16.5 RATIO Normal 10-20 [facility] Comment on above: Performed By: #### L 501.4021, L506.0400, L501.9520, L100.0100, L503.7505, L500.2500 #### [facility] [address] [place], [address] CA,Total 9.0 mg/dL Normal 8.5-10.1 [facility] Comment on above: Performed By: #### L 501.4021, L506.0400, L501.9520, L100.0100, L503.7505, L500.2500 #### [facility] [address] [place], [address] Chloride [Moles/Vol] 99 mmol/L Normal 98-107 [facility] Comment on above: Performed By: #### L 501.4021, L506.0400, L501.9520, L100.0100, L503.7505, L500.2500 #### [facility] [address] [place], [address] CO2 [Moles/Vol] 28.0 mmol/L Normal 21.0-32.0 [facility] Comment on above: Performed By: #### L 501.4021, L506.0400, L501.9520, L100.0100, L503.7505, L500.2500 #### [facility] [address] [place], [address] Creatinine [Mass/Vol] 1.39 mg/dL High 0.70-1.30 [facility] Comment on above: Result Comment: The validity of the calculated GFR GFRAA in patients over 70 years has not been determined. Clinical correlation is essential. Performed By: #### L 501.4021, L506.0400, L501.9520, L100.0100, L503.7505, L500.2500 #### [facility] [address] [place], [address] ECRCL 71.00 ml/min Normal [facility] Comment on above: Performed By: #### L 501.4021, L506.0400, L501.9520, L100.0100, L503.7505, L500.2500 #### [facility] [address] [place], [address] EST GFR - AA 69 mL/min Normal >60 [facility] Comment on above: Result Comment: Afri can Burmese GFR Calc Performed By: #### L 501.4021, L506.0400, L501.9520, L100.0100, L503.7505, L500.2500 #### [facility] [address] [place], [address] GAP 8 Normal 5-15 [facility] Comment on above: Performed By: #### L 501.4021, L506.0400, L501.9520, L100.0100, L503.7505, L500.2500 #### [facility] [address] [place], [address] GFR/1.73 sq M.predicted among non-blacks MDRD (S/P/Bld) [Vol rate/Area] 57 mL/min/{1.73_m2} Low >60 [facility] Comment on above: Result Comment: Non- GFR Calc Performed By: #### L 501.4021, L506.0400, L501.9520, L100.0100, L503.7505, L500.2500 #### [facility] [address] [place], [address] Globulin (S) [Mass/Vol] 4.3 g/dL High 2.2-4.2 [facility] Comment on above: Performed By: #### L 501.4021, L506.0400, L501.9520, L100.0100, L503.7505, L500.2500 #### [facility] [address] [place], [address] Glucose [Mass/Vol] 226 mg/dL High 74-106 [facility] Comment on above: Result Comment: Gluc ose result greater than or equal to 200 mg/dL suggests DIABETES MELLITUS per A.D.A. criteria. Performed By: #### L 501.4021, L506.0400, L501.9520, L100.0100, L503.7505, L500.2500 #### [facility] [address] [place], [address] Potassium [Moles/Vol] 3.7 mmol/L Normal 3.5-5.1 [facility] Comment on above: Performed By: #### L 501.4021, L506.0400, L501.9520, L100.0100, L503.7505, L500.2500 #### [facility] [address] [place], [address] Sodium [Moles/Vol] 135 mmol/L Low 136-145 [facility] Comment on above: Performed By: #### L 501.4021, L506.0400, L501.9520, L100.0100, L503.7505, L500.2500 #### [facility] [address] [place], [address] T PROT 7.3 g/dL Normal 6.4-8.2 [facility] Comment on above: Performed By: #### L 501.4021, L506.0400, L501.9520, L100.0100, L503.7505, L500.2500 #### [facility] [address] [place], [address] Urea nitrogen [Mass/Vol] 23 mg/dL High 7-18 [facility] Comment on above: Performed By: #### L 501.4021, L506.0400, L501.9520, L100.0100, L503.7505, L500.2500 #### [facility] [address] [place], [address] Gram Stainon 10-11-2024 GS SENT LABEL TO U FOR COLLECTION Acceptable Specimen? Yes (<25 Epithelial cells per/lpf) Gram Stain Rare White Blood Cells Rare Epithelial cells 3+ Gram positive cocci in chains 1+ Gram negative rods Normal [facility] Comment on above: Performed By: #### L 503.6005, L300.3900, L501.5425, L100.0100, L500.2500, L300.4310, L503.6620 #### [facility] [address] [place], [address] Hemoglobin A1con 10-11-2024 HbA1c (Bld) [Mass fraction] 9.5 % High 3.8-5.6 [facility] Comment on above: Result Comment: Norm al < 5.7 % Prediabetic 5.7 - 6.4 % Diabetic >or= 6.5 % Please note range changes. Performed By: #### L 501.4021, L506.0400, L501.9520, L100.0100, L503.7505, L500.2500 #### [facility] [address] [place], [address] L501.4020on 10-11-2024 TROPONIN-I HS 99 pg/mL High 3.0-78.0 [facility] Comment on above: Order Comment: 'TROP ' Serial specimen #1, #2 or #3: 3 3 Result Comment: Plea se Note: New Test Units and Gender Specific Reference Ranges. For more information see Policy Stat Procedure [place] High Sensitivity Troponin (TNIH) and attachments. Performed By: #### L 501.4020 #### [facility] [address] [place], [address] Lipid Profileon 10-11-2024 HDL Normal [facility] Comment on above: Result Comment: DUPL ICATE ORDER. The drugs N-Acetylcysteine and Metamizole may falsely depress this assay. Performed By: #### L 501.4021, L506.0400, L501.9520, L100.0100, L503.7505, L500.2500 #### [facility] [address] [place], [address] TRIG Normal [facility] Comment on above: Result Comment: DUPL ICATE ORDER. The drugs N-Acetylcysteine and Metamizole may falsely depress this assay. Performed By: #### L 501.4021, L506.0400, L501.9520, L100.0100, L503.7505, L500.2500 #### [facility] [address] [place], [address] Cholesterol [Mass/Vol] 146 mg/dL Normal 200 [facility] Comment on above: Result Comment: <200 mg/dL Desirable 200-240 mg/dL Borderline >240 mg/dL High Risk Performed By: #### L 501.4021, L506.0400, L501.9520, L100.0100, L503.7505, L500.2500 #### [facility] [address] [place], [address] Cholesterol in HDL [Mass/Vol] 33 mg/dL Low [facility] Comment on above: Result Comment: The drugs N-Acetylcysteine and Metamizole may falsely depress this assay. Reference Range HDL <40 mg/dL Low HDL Cholesterol HDL >or= 60 mg/dL High HDL Cholesterol Performed By: #### L 501.4021, L506.0400, L501.9520, L100.0100, L503.7505, L500.2500 #### [facility] [address] [place], [address] Cholesterol in LDL [Mass/Vol] 89 mg/dL Normal 0-130 [facility] Comment on above: Performed By: #### L 501.4021, L506.0400, L501.9520, L100.0100, L503.7505, L500.2500 #### [facility] [address] [place], [address] Cholesterol in VLDL [Mass/Vol] 24 mg/dL Normal 5-40 [facility] Comment on above: Performed By: #### L 501.4021, L506.0400, L501.9520, L100.0100, L503.7505, L500.2500 #### [facility] [address] [place], [address] Triglyceride [Mass/Vol] 119 mg/dL Normal [facility] Comment on above: Result Comment: The drugs N-Acetylcysteine and Metamizole may falsely depress this assay. Serum Triglycerides Reference Interval Normal <150 mg/dL Borderline high 150 - 199 mg/dL High 200 - 499 mg/dL Very High > or = 500 mg/dL Performed By: #### L 501.4021, L506.0400, L501.9520, L100.0100, L503.7505, L500.2500 #### [facility] [address] [place], [address] CHOL Normal 200 [facility] Comment on above: Result Comment: DUPL ICATE ORDER. Performed By: #### L 501.4021, L506.0400, L501.9520, L100.0100, L503.7505, L500.2500 #### [facility] [address] [place], [address] LDL Normal 0-130 [facility] Comment on above: Result Comment: DUPL ICATE ORDER. Performed By: #### L 501.4021, L506.0400, L501.9520, L100.0100, L503.7505, L500.2500 #### [facility] [address] [place], [address] VLDL Normal 5-40 [facility] Comment on above: Result Comment: DUPL ICATE ORDER. Performed By: #### L 501.4021, L506.0400, L501.9520, L100.0100, L503.7505, L500.2500 #### [facility] [address] [place], [address] Magnesiumon 10-11-2024 Magnesium [Mass/Vol] 2.0 mg/dL Normal 1.6-2.6 [facility] Comment on above: Performed By: #### L 501.4021, L506.0400, L501.9520, L100.0100, L503.7505, L500.2500 #### [facility] [address] [place], [address] Phosphoruson 10-11-2024 Phosphate [Mass/Vol] 2.8 mg/dL Normal 2.5-4.9 [facility] Comment on above: Performed By: #### L 501.4021, L506.0400, L501.9520, L100.0100, L503.7505, L500.2500 #### [facility] [address] [place], [address] RESPIRATORY PANEL MOLECULARo n 10-11-2024 RP PANEL ADENOVIRUS Not Detected INFLUENZA A Not Detected INFLUENZA A (SUBTYPE H1) Not Detected INFLUENZA A (SUBTYPE H3) Not Detected INFLUENZA B Not Detected HUMAN METAPHNEUMO Not Detected PARAINFLUENZA 1 Not Detected PARAINFLUENZA 2 Not Detected PARAINFLUENZA 3 Not Detected PARAINFLUENZA 4 Not Detected RHINOVIRUS Not Detected RSV A Not Detected RSV B Not Detected Normal [facility] Comment on above: Performed By: #### L 503.6005, L300.3900, L501.5425, L100.0100, L500.2500, L300.4310, L503.6620 #### [facility] [address] [place], [address] Thyroid Stim Hormone (TSH)on 10-11-2024 TSH 1.590 uIU/mL Normal 0.358-3.740 [facility] Comment on above: Performed By: #### L 501.4021, L506.0400, L501.9520, L100.0100, L503.7505, L500.2500 #### [facility] [address] [place], [address] 12 Lead EKGon 10-10-2024 12 Lead EKG [facility] Cardiovascular Services [address] [place] [address] 12 Lead EKG 10/10/241957 MR#: [id number] Acct: [id number] Name: LATONYA ELDER Rep #: [id number] : 1970 54 From: Harvey Murphy MD Attending Dr: Dr. Nasim Leblanc MD Status: ADM IN Ordering Dr: Brennon Mckeon DO Date: 10/10/24 Location: [facility] Sex: M C Admitted: 10/11/24 Test Reason [...] undetermined Abnormal ECG Confirmed by Harvey Murphy ([id number]), mapping editor EVELIO CURRY ([id number]) on 10/13/2024 6:24:07 AM Referred By: Confirmed By: Harvey Murphy 10/13/24 0624 Date Harvey Murphy MD CC: Dr. Beka Bowie MD; Dr. Brennon Mckeon DO; Dr. Nasim Leblanc MD Signed Normal [facility] BNP,B-Type NATRIURETIC PEPTI [place] 10-10-2024 Natriuretic peptide B (Bld) [Mass/Vol] 261.1 pg/mL High 0-100 [facility] Comment on above: Performed By: #### L 501.4020 #### [facility] [address] [place], [address] Basic Metabolic Profile (BMP )on 10-10-2024 BUN/CRE 14.7 RATIO Normal 10-20 [facility] Comment on above: Order Comment: 1Y Performed By: #### L 501.4020 #### [facility] [address] [place], [address] CA,Total 8.9 mg/dL Normal 8.5-10.1 [facility] Comment on above: Order Comment: 1Y Performed By: #### L 501.4020 #### [facility] [address] [place], [address] Chloride [Moles/Vol] 105 mmol/L Normal 98-107 [facility] Comment on above: Order Comment: 1Y Performed By: #### L 501.4020 #### [facility] [address] [place], [address] CO2 [Moles/Vol] 28.0 mmol/L Normal 21.0-32.0 [facility] Comment on above: Order Comment: 1Y Performed By: #### L 501.4020 #### [facility] [address] [place], [address] Creatinine [Mass/Vol] 1.09 mg/dL Normal 0.70-1.30 [facility] Comment on above: Order Comment: 1Y Result Comment: The validity of the calculated GFR GFRAA in patients over 70 years has not been determined. Clinical correlation is essential. Performed By: #### L 501.4020 #### [facility] [address] [place], [address] ECRCL 92.66 ml/min Normal [facility] Comment on above: Order Comment: 1Y Performed By: #### L 501.4020 #### [facility] [address] [place], [address] EST GFR - AA 91 mL/min Normal >60 [facility] Comment on above: Order Comment: 1Y Result Comment: Afri can Burmese GFR Calc Performed By: #### L 501.4020 #### [facility] [address] [place], [address] GAP 6 Normal 5-15 [facility] Comment on above: Order Comment: 1Y Performed By: #### L 501.4020 #### [facility] [address] [place], [address] GFR/1.73 sq M.predicted among non-blacks MDRD (S/P/Bld) [Vol rate/Area] 75 mL/min/{1.73_m2} Normal >60 [facility] Comment on above: Order Comment: 1Y Result Comment: Non- GFR Calc Performed By: #### L 501.4020 #### [facility] [address] [place], [address] Glucose [Mass/Vol] 160 mg/dL High 74-106 [facility] Comment on above: Order Comment: 1Y Result Comment: Fast ing Glucose result greater than or equal to 126 mg/dL suggests DIABETES MELLITUS per A.D.A. criteria. Performed By: #### L 501.4020 #### [facility] [address] [place], [address] Potassium [Moles/Vol] 3.7 mmol/L Normal 3.5-5.1 [facility] Comment on above: Order Comment: 1Y Performed By: #### L 501.4020 #### [facility] [address] [place], [address] Sodium [Moles/Vol] 138 mmol/L Normal 136-145 [facility] Comment on above: Order Comment: 1Y Performed By: #### L 501.4020 #### [facility] [address] [place], [address] Urea nitrogen [Mass/Vol] 16 mg/dL Normal 7-18 [facility] Comment on above: Order Comment: 1Y Performed By: #### L 501.4020 #### [facility] [address] [place], [address] CBC W/Diff, Automatedon 11-2 2-2023 Absolute Lymph 1.94 X10 3/uL Normal 0.83-4.51 [facility] Comment on above: Performed By: #### L 503.6005, L300.3900, L501.5425, L100.0100, L500.2500, L300.4310, L503.6620 #### [facility] [address] [place], [address] Absolute Neut 8.6 X10 3/uL High 2.0-7.7 [facility] Comment on above: Performed By: #### L 503.6005, L300.3900, L501.5425, L100.0100, L500.2500, L300.4310, L503.6620 #### [facility] [address] [place], [address] Basophils/100 WBC (Bld) 0.4 % Normal 0-1 [facility] Comment on above: Performed By: #### L 503.6005, L300.3900, L501.5425, L100.0100, L500.2500, L300.4310, L503.6620 #### [facility] [address] [place], [address] Eosinophils/100 WBC (Bld) 0.6 % Normal 0-5 [facility] Comment on above: Performed By: #### L 503.6005, L300.3900, L501.5425, L100.0100, L500.2500, L300.4310, L503.6620 #### [facility] [address] [place], [address] Erythrocyte distribution width (RBC) [Ratio] 13.4 % Normal 11.6-14.6 [facility] Comment on above: Performed By: #### L 503.6005, L300.3900, L501.5425, L100.0100, L500.2500, L300.4310, L503.6620 #### [facility] [address] [place], [address] Hematocrit (Bld) [Volume fraction] 39.2 % Low 40-54 [facility] Comment on above: Performed By: #### L 503.6005, L300.3900, L501.5425, L100.0100, L500.2500, L300.4310, L503.6620 #### [facility] [address] [place], [address] Hemoglobin (Bld) [Mass/Vol] 12.6 g/dL Low 13.0-16.5 [facility] Comment on above: Performed By: #### L 503.6005, L300.3900, L501.5425, L100.0100, L500.2500, L300.4310, L503.6620 #### [facility] [address] [place], [address] IG% 0.300 Normal 0.0-0.9 [facility] Comment on above: Result Comment: IG% - Immature Granulocytes (promyelocytes, myelocytes and metamyelocytes) > 1% indicates that a LEFT SHIFT is Present. Performed By: #### L 503.6005, L300.3900, L501.5425, L100.0100, L500.2500, L300.4310, L503.6620 #### [facility] [address] [place], [address] Lymphocytes/100 WBC (Bld) 16.3 % Low 19-41 [facility] Comment on above: Performed By: #### L 503.6005, L300.3900, L501.5425, L100.0100, L500.2500, L300.4310, L503.6620 #### [facility] [address] [place], [address] MCH (RBC) [Entitic mass] 27.8 pg Normal 27.0-32.0 [facility] Comment on above: Performed By: #### L 503.6005, L300.3900, L501.5425, L100.0100, L500.2500, L300.4310, L503.6620 #### [facility] [address] [place], [address] MCHC (RBC) [Mass/Vol] 32.1 g/dL Normal 32-36 [facility] Comment on above: Performed By: #### L 503.6005, L300.3900, L501.5425, L100.0100, L500.2500, L300.4310, L503.6620 #### [facility] [address] [place], [address] MCV (RBC) [Entitic vol] 86.3 fL Normal 80-94 [facility] Comment on above: Performed By: #### L 503.6005, L300.3900, L501.5425, L100.0100, L500.2500, L300.4310, L503.6620 #### [facility] [address] [place], [address] Monocytes/100 WBC (Bld) 10.3 % High 0-10 [facility] Comment on above: Performed By: #### L 503.6005, L300.3900, L501.5425, L100.0100, L500.2500, L300.4310, L503.6620 #### [facility] [address] [place], [address] Neutrophils/100 WBC (Bld) 72.1 % High 47-70 [facility] Comment on above: Performed By: #### L 503.6005, L300.3900, L501.5425, L100.0100, L500.2500, L300.4310, L503.6620 #### [facility] [address] [place], [address] Nucleated RBC (Bld) [#/Vol] 0 10*3/uL Normal 0-5 [facility] Comment on above: Performed By: #### L 503.6005, L300.3900, L501.5425, L100.0100, L500.2500, L300.4310, L503.6620 #### [facility] [address] [place], [address] Platelet mean volume (Bld) [Entitic vol] 10.3 fL Normal 6.2-12.0 [facility] Comment on above: Performed By: #### L 503.6005, L300.3900, L501.5425, L100.0100, L500.2500, L300.4310, L503.6620 #### [facility] [address] [place], [address] Platelets (Bld) [#/Vol] 320 10*3/uL Normal 150-450 [facility] Comment on above: Performed By: #### L 503.6005, L300.3900, L501.5425, L100.0100, L500.2500, L300.4310, L503.6620 #### [facility] [address] [place], [address] RBC (Bld) [#/Vol] 4.54 10*6/uL Low 4.6-6.2 [facility] Comment on above: Performed By: #### L 503.6005, L300.3900, L501.5425, L100.0100, L500.2500, L300.4310, L503.6620 #### [facility] [address] [place], [address] RDW SD 41.7 fl Normal 35.1-43.9 [facility] Comment on above: Performed By: #### L 503.6005, L300.3900, L501.5425, L100.0100, L500.2500, L300.4310, L503.6620 #### [facility] [address] [facility] [facility] [place], [address] WBC (Bld) [#/Vol] 11.9 10*3/uL High 4.4-11.0 [facility] Comment on above: Performed By: #### L 503.6005, L300.3900, L501.5425, L100.0100, L500.2500, L300.4310, L503.6620 #### [facility] [address] [place], [address] CTA Chest W/WO Contraston CTA Chest W/WO Contrast [facility] Imaging Services [address] [place] [address] CTA Chest W/WO Contrast MR#: [id number] Acct: [id number] Name: LATONYA ELDER Rep #: [id number] : 1970 M 54 From: David Yanez MD PCP: Dr. Beka Bowie MD Status: [facility] ER Study: CTA Chest W/WO Contrast Date of Exam: 10/10/24 Exam# [id number] Ordering Dr: Brennon Mckeon DO -[id number] STUDY: CTA CHEST REASON FOR EXAM: [...] 20:40 EST Reading Location ID and State: [address] [place] [address] Tel , Service support , CC: Dr. Beka Bowie MD; Dr. 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 Beka Bowie MD Status:ADM IN Location: PCU [id number] HPI History of Present Illness Chief Complaint: [...] Recent immobilization, Recent surgery or Recent travel [facility] Medical History Acute sinusitis, unspecified Left shoulder pain Insulin dependent diabetes mellitus Coronary artery disease Essential hypertension Cluster headache Migraine Headache Diabetes Obesity Community acquired pneumonia Smoker Asthma Myocardial infarct Ischemic cardiomyopathy Obesity (BMI 30.0-34.9) Chronic obstructive pulmonary disease (COPD) Nicotine dependence COPD (chronic obstructive pulmonary disease) Hyperlipidemia History of non-ST elevation myocardial infarction (NSTEMI) (11/22/20) Atherosclerosis of [place] coronary artery of [place] heart without angina pectoris Non-ST elevation IN (NSTEMI) Home Medications ???Medication ???Instructions ???Recorded ???Last Taken ???Type aspirin 81 mg chewable tablet 81 mg PO DAILY [facility] 04/27/22 04/27/22 History loratadine 10 mg tablet 10 mg PO DAILY PRN allergies 06/26/22 Unknown History carvedilol 25 mg tablet 25 mg PO BIDCM [facility] 04/24/23 Unknown Rx tabs clonidine [...] History (Re (more content not included)... Normal [facility] H AND P Exam - Hospitaliston 10-10-2024 H&P Exam - Hospitalist [facility] Medical Records Department [address] [place] [address] H P Exam - Hospitalist 10/10/24 2336 MR#: [id number] Acct: [id number] Name: LATONYA ELDER Rep #: [id number] : 1970 54 From: Mitchell Deras DO PCP: Dr. Beka Bowie MD Status:ADM IN Location: [place] [address] HPI - General General Date of Admission: 10/11/24 Date of Service: 10/10/24 Chief Complaint: SOB and Cough. HPI Narrative LAOTNYA ELDER, is a 54 M with a [...] history of neck surgery who presents to [facility] ER complaining of SOB and cough. Mr. Eledr reports his symptoms began approximately 2 months [...] is expected to extend beyond 2 midnights. [facility] Medical History Acute sinusitis, unspecified Left shoulder pain Insulin dependent diabetes mellitus Coronary artery disease Essential hypertension Cluster headache Migraine Headache Diabetes Obesity Community acquired pneumonia Smoker Asthma Myocardial infarct Ischemic cardiomyopathy Obesity (BMI 30.0-34.9) Chronic obstructive pulmonary disease (COPD) Nicotine dependence COPD (chronic obstructive pulmonary disease) Hyperlipidemia History of non-ST elevation myocardial infarction (NSTEMI) (11/22/20) Atherosclerosis of [place] coronary artery of [place] heart without angina pectoris Non-ST elevation IN (NSTEMI) Home Medications ???Medication ???Instructions ???Recorded ???Last [...] tabs 02 (more content not included)... Normal [facility] L501.4020on 10-10-2024 TROPONIN-I HS 105 pg/mL High 3.0-78.0 [facility] Comment on above: Result Comment: Colette antunez Note: New Test Units and Gender Specific Reference Ranges. For more information see Policy Stat Procedure [place] High Sensitivity Troponin (TNIH) and attachments. Performed By: #### L 501.4020 #### [facility] [address] [place], [place], [address] L501.5425on 10-10-2024 TROPONIN-I HS 112 pg/mL High 3.0-78.0 [facility] Comment on above: Order Comment: 1Y Result Comment: Pleazra antunez Note: New Test Units and Gender Specific Reference Ranges. For more information see Policy Stat Procedure [place] High Sensitivity Troponin (TNIH) and attachments. Performed By: #### L 501.4020 #### [facility] [address] [place], [place], [address] Lactic Acidon 11-22-2024 Lactate [Moles/Vol] 1.2 mmol/L Normal 0.4-1.9 [facility] Comment on above: Order Comment: Y Performed By: #### L 501.4020 #### [facility] [address] [place], [address] Partial Thromboplast Timeon 10-10-2024 aPTT Coag (Bld) [Time] 28.5 s Normal 24.1-36.2 [facility] Comment on above: Performed By: #### L 501.4020 #### [facility] [address] [place], [address] Prothrombin Time w/INRon INR Coag (PPP) [Relative time] 1.3 {INR} Normal [facility] Comment on above: Performed By: #### L 501.4020 #### [facility] [address] [place], [address] PT Coag (PPP) [Time] 15.7 s High 11.7-14.9 [facility] Comment on above: Performed By: #### L 501.4020 #### [facility] [address] [place], [address] 12 Lead EKGon 09-25-2024 12 Lead EKG [facility] Cardiovascular Services [address] [place] [address] 12 Lead EKG 09/25/24 1653 MR#: [id number] Acct: [id number] Name: LATONYA ELDER Rep #: [id number] : 1970 54 From: Eric Flores MD [...] Abnormal ECG Confirmed by SANDRA EVANGELISTA, ERIC ([id number]), mapping editor TESS PERRY ([id number]) on 09/29/2024 10:11:59 AM Referred By: Confirmed By: ERIC FLORES MD 09/29/24 1012 Date Eric Flores MD CC: Dr. Beka Bowie MD; Dr. Brennon Mckeon, DO Signed Normal [facility] BNP,B-Type NATRIURETIC PEPTI [place] 09-25-2024 Natriuretic peptide B (Bld) [Mass/Vol] 307.2 pg/mL High 0-100 [facility] Comment on above: Performed By: #### L 501.4021, L506.0400, L501.9520, L100.0100, L503.7505, L500.2500 #### [facility] [address] [place], [address] Basic Metabolic Profile (BMP )on 09-25-2024 BUN/CRE 20.7 RATIO High 10-20 [facility] Comment on above: Order Comment: 'TROP ' Serial specimen #1, #2 or #3: 1 Performed By: #### L 501.4021, L506.0400, L501.9520, L100.0100, L503.7505, L500.2500 #### [facility] [address] [place], [address] CA,Total 8.8 mg/dL Normal 8.5-10.1 [facility] Comment on above: Order Comment: 'TROP ' Serial specimen #1, #2 or #3: 1 Performed By: #### L 501.4021, L506.0400, L501.9520, L100.0100, L503.7505, L500.2500 #### [facility] [address] [place], [address] Chloride [Moles/Vol] 108 mmol/L High 98-107 [facility] Comment on above: Order Comment: 'TROP ' Serial specimen #1, #2 or #3: 1 Performed By: #### L 501.4021, L506.0400, L501.9520, L100.0100, L503.7505, L500.2500 #### [facility] [address] [place], [address] CO2 [Moles/Vol] 29.0 mmol/L Normal 21.0-32.0 [facility] Comment on above: Order Comment: 'TROP ' Serial specimen #1, #2 or #3: 1 Performed By: #### L 501.4021, L506.0400, L501.9520, L100.0100, L503.7505, L500.2500 #### [facility] [address] [place], [address] Creatinine [Mass/Vol] 1.11 mg/dL Normal 0.70-1.30 [facility] Comment on above: Order Comment: 'TROP ' Serial specimen #1, #2 or #3: 1 Result Comment: The validity of the calculated GFR GFRAA in patients over 70 years has not been determined. Clinical correlation is essential. Performed By: #### L 501.4021, L506.0400, L501.9520, L100.0100, L503.7505, L500.2500 #### [facility] [address] [place], [address] ECRCL 93.07 ml/min Normal [facility] Comment on above: Order Comment: 'TROP ' Serial specimen #1, #2 or #3: 1 Performed By: #### L 501.4021, L506.0400, L501.9520, L100.0100, L503.7505, L500.2500 #### [facility] [address] [place], [address] EST GFR - AA 89 mL/min Normal >60 [facility] Comment on above: Order Comment: 'TROP ' Serial specimen #1, #2 or #3: 1 Result Comment: Afri can Burmese GFR Calc Performed By: #### L 501.4021, L506.0400, L501.9520, L100.0100, L503.7505, L500.2500 #### [facility] [address] [place], [address] GAP 3 Low 5-15 [facility] Comment on above: Order Comment: 'TROP ' Serial specimen #1, #2 or #3: 1 Performed By: #### L 501.4021, L506.0400, L501.9520, L100.0100, L503.7505, L500.2500 #### [facility] [address] [place], [address] GFR/1.73 sq M.predicted among non-blacks MDRD (S/P/Bld) [Vol rate/Area] 74 mL/min/{1.73_m2} Normal >60 [facility] Comment on above: Order Comment: 'TROP ' Serial specimen #1, #2 or #3: 1 Result Comment: Non- GFR Calc Performed By: #### L 501.4021, L506.0400, L501.9520, L100.0100, L503.7505, L500.2500 #### [facility] [address] [place], [address] Glucose [Mass/Vol] 128 mg/dL High 74-106 [facility] Comment on above: Order Comment: 'TROP ' Serial specimen #1, #2 or #3: 1 Result Comment: Fast ing Glucose result greater than or equal to 126 mg/dL suggests DIABETES MELLITUS per A.D.A. criteria. Performed By: #### L 501.4021, L506.0400, L501.9520, L100.0100, L503.7505, L500.2500 #### [facility] [address] [place], [address] Potassium [Moles/Vol] 4.5 mmol/L Normal 3.5-5.1 [facility] Comment on above: Order Comment: 'TROP ' Serial specimen #1, #2 or #3: 1 Performed By: #### L 501.4021, L506.0400, L501.9520, L100.0100, L503.7505, L500.2500 #### [facility] [address] [place], [address] Sodium [Moles/Vol] 140 mmol/L Normal 136-145 [facility] Comment on above: Order Comment: 'TROP ' Serial specimen #1, #2 or #3: 1 Performed By: #### L 501.4021, L506.0400, L501.9520, L100.0100, L503.7505, L500.2500 #### [facility] [address] [place], [address] Urea nitrogen [Mass/Vol] 23 mg/dL High 7-18 [facility] Comment on above: Order Comment: 'TROP ' Serial specimen #1, #2 or #3: 1 Performed By: #### L 501.4021, L506.0400, L501.9520, L100.0100, L503.7505, L500.2500 #### [facility] [address] [place], [address] CBC W/Diff, Automatedon 11-0 7-2023 Absolute Lymph 3.00 X10 3/uL Normal 0.83-4.51 [facility] Comment on above: Performed By: #### L 501.4021, L506.0400, L501.9520, L100.0100, L503.7505, L500.2500 #### [facility] [address] [place], [address] Absolute Neut 7.8 X10 3/uL High 2.0-7.7 [facility] Comment on above: Performed By: #### L 501.4021, L506.0400, L501.9520, L100.0100, L503.7505, L500.2500 #### [facility] [address] [place], [address] Basophils/100 WBC (Bld) 0.5 % Normal 0-1 [facility] Comment on above: Performed By: #### L 501.4021, L506.0400, L501.9520, L100.0100, L503.7505, L500.2500 #### [facility] [address] [place], [address] Eosinophils/100 WBC (Bld) 2.7 % Normal 0-5 [facility] Comment on above: Performed By: #### L 501.4021, L506.0400, L501.9520, L100.0100, L503.7505, L500.2500 #### [facility] [address] [place], [address] Erythrocyte distribution width (RBC) [Ratio] 13.2 % Normal 11.6-14.6 [facility] Comment on above: Performed By: #### L 501.4021, L506.0400, L501.9520, L100.0100, L503.7505, L500.2500 #### [facility] [address] [place], [address] Hematocrit (Bld) [Volume fraction] 41.5 % Normal 40-54 [facility] Comment on above: Performed By: #### L 501.4021, L506.0400, L501.9520, L100.0100, L503.7505, L500.2500 #### [facility] [address] [place], [address] Hemoglobin (Bld) [Mass/Vol] 13.4 g/dL Normal 13.0-16.5 [facility] Comment on above: Performed By: #### L 501.4021, L506.0400, L501.9520, L100.0100, L503.7505, L500.2500 #### [facility] [address] [place], [address] IG% 0.600 Normal 0.0-0.9 [facility] Comment on above: Result Comment: IG% - Immature Granulocytes (promyelocytes, myelocytes and metamyelocytes) > 1% indicates that a LEFT SHIFT is Present. Performed By: #### L 501.4021, L506.0400, L501.9520, L100.0100, L503.7505, L500.2500 #### [facility] [address] [place], [address] Lymphocytes/100 WBC (Bld) 24.3 % Normal 19-41 [facility] Comment on above: Performed By: #### L 501.4021, L506.0400, L501.9520, L100.0100, L503.7505, L500.2500 #### [facility] [address] [place], [address] MCH (RBC) [Entitic mass] 28.3 pg Normal 27.0-32.0 [facility] Comment on above: Performed By: #### L 501.4021, L506.0400, L501.9520, L100.0100, L503.7505, L500.2500 #### [facility] [address] [place], [address] MCHC (RBC) [Mass/Vol] 32.3 g/dL Normal 32-36 [facility] Comment on above: Performed By: #### L 501.4021, L506.0400, L501.9520, L100.0100, L503.7505, L500.2500 #### [facility] [address] [place], [address] MCV (RBC) [Entitic vol] 87.6 fL Normal 80-94 [facility] Comment on above: Performed By: #### L 501.4021, L506.0400, L501.9520, L100.0100, L503.7505, L500.2500 #### [facility] [address] [place], [address] Monocytes/100 WBC (Bld) 8.8 % Normal 0-10 [facility] Comment on above: Performed By: #### L 501.4021, L506.0400, L501.9520, L100.0100, L503.7505, L500.2500 #### [facility] [address] [place], [address] Neutrophils/100 WBC (Bld) 63.1 % Normal 47-70 [facility] Comment on above: Performed By: #### L 501.4021, L506.0400, L501.9520, L100.0100, L503.7505, L500.2500 #### [facility] [address] [place], [address] Nucleated RBC (Bld) [#/Vol] 0 10*3/uL Normal 0-5 [facility] Comment on above: Performed By: #### L 501.4021, L506.0400, L501.9520, L100.0100, L503.7505, L500.2500 #### [facility] [address] [place], [address] Platelet mean volume (Bld) [Entitic vol] 10.1 fL Normal 6.2-12.0 [facility] Comment on above: Performed By: #### L 501.4021, L506.0400, L501.9520, L100.0100, L503.7505, L500.2500 #### [facility] [address] [place], [address] Platelets (Bld) [#/Vol] 330 10*3/uL Normal 150-450 [facility] Comment on above: Performed By: #### L 501.4021, L506.0400, L501.9520, L100.0100, L503.7505, L500.2500 #### [facility] [address] [place], [address] RBC (Bld) [#/Vol] 4.74 10*6/uL Normal 4.6-6.2 [facility] Comment on above: Performed By: #### L 501.4021, L506.0400, L501.9520, L100.0100, L503.7505, L500.2500 #### [facility] [address] [place], [address] RDW SD 42.1 fl Normal 35.1-43.9 [facility] Comment on above: Performed By: #### L 501.4021, L506.0400, L501.9520, L100.0100, L503.7505, L500.2500 #### [facility] [address] [place], [address] WBC (Bld) [#/Vol] 12.3 10*3/uL High 4.4-11.0 [facility] Comment on above: Performed By: #### L 501.4021, L506.0400, L501.9520, L100.0100, L503.7505, L500.2500 #### [facility] [address] [place], [address] CTA Chest W/WO Contrast CTA Chest W/WO Contrast [facility] Imaging Services [address] [place] [address] CTA Chest W/WO Contrast MR#: [id number] Acct: [id number] Name: LATONYA ELDER Rep #: [id number] : 1970 M 54 From: Kj myers MD PCP: Dr. Beka Bowie MD Status: REG ER Study: CTA Chest W/WO Contrast Date of Exam: 09/25/24 Exam# [id number] Ordering Dr: Brennon Mckeon DO [id number] STUDY: CTA CHEST REASON FOR EXAM: [...] Beka Bowie MD; Dr. Brennon Mckeon DO Getter Welder: Signed Normal [facility] Chest PA and Lateralon 09-25 Chest PA and Lateral [facility] Imaging Services [address] [place], [place] [address] Chest PA and Lateral MR#: [id number] Acct: [id number] Name: LATONYA ELDER Rep #: [id number] : 1970 M 54 From: Kj myers MD PCP: Dr. Beka Bowie MD Status: REG ER Study: Chest PA and Lateral Date of Exam: 09/25/24 Exam# [id number] Ordering Dr: Brennon Mckeon DO -[id number] STUDY: X-RAY CHEST REASON FOR EXAM: [...] Beka Bowie MD; Dr. Brennon Mckeon DO Getter Welder: Signed Normal [facility] D-Dimer Quantitative (DVT/PE )on 09-25-2024 D-DIMER QUANT 0.80 FEU/ug/m Invalid Interpretation Code 0.27-0.49 [facility] Comment on above: Result Comment: D-Di olvin ELEVATED (>0.49): Additional studies and clinical assessments are indicated to conclude diagnosis of: Deep Vein Thrombosis (DVT) or Pulmonary Embolism (PE) RESULTS CALLED TO [place] 09/25/24 1751 Roya Quiñones. REPORT READ BACK BY SAME. Performed By: #### L 501.4021, L506.0400, L501.9520, L100.0100, L503.7505, L500.2500 #### [facility] [address] [facility] [place], [address] Emergency Department Summary on 09-25-2024 Emergency Department Summary [facility] Medical Records Department [address] [place] [address] Emergency Department Summary 09/25/24 MR#: [id number] Acct: [id number] Name: LATONYA ELDER Rep #: [id number] : 1970 54 From: Brennon Mckeon DO [...] has had some syncopal episodes after coughing. [facility] Medical History Acute sinusitis, unspecified Left shoulder pain Insulin dependent diabetes mellitus Coronary artery disease Essential hypertension Cluster headache Migraine Headache Diabetes Obesity Community acquired pneumonia Smoker Asthma Myocardial infarct Ischemic cardiomyopathy Obesity (BMI 30.0-34.9) Chronic obstructive pulmonary disease (COPD) Nicotine dependence COPD (chronic obstructive pulmonary disease) Hyperlipidemia History of non-ST elevation myocardial infarction (NSTEMI) (11/22/20) Atherosclerosis of [place] coronary artery of [place] heart without angina pectoris Non-ST elevation IN (NSTEMI) Home Medications ???Medication ???Instructions ???Recorded ???Last Taken ???Type aspirin 81 mg chewable tablet 81 mg PO DAILY [facility] 04/27/22 04/27/22 History loratadine 10 mg tablet 10 mg PO DAILY PRN allergies 06/26/22 Unknown History carvedilol 25 mg tablet 25 mg PO BIDCM [facility] 04/24/23 Unknown Rx tabs clonidine [...] of coron (more content not included)... Normal [facility] L501.4020on 09-25-2024 TROPONIN-I HS 85 pg/mL High 3.0-78.0 [facility] Comment on above: Order Comment: 'TROP ' Serial specimen #1, #2 or #3: 2 Result Comment: Colette antunez Note: New Test Units and Gender Specific Reference Ranges. For more information see Policy Stat Procedure [place] High Sensitivity Troponin (TNIH) and attachments. Performed By: #### L 501.4020 #### [facility] [address] [place], [address] TROPONIN-I HS 92 pg/mL High 3.0-78.0 [facility] Comment on above: Order Comment: 'TROP ' Serial specimen #1, #2 or #3: 1 Result Comment: Plea se Note: New Test Units and Gender Specific Reference Ranges. For more information see Policy Stat Procedure [place] High Sensitivity Troponin (TNIH) and attachments. Performed By: #### L 501.4021, L506.0400, L501.9520, L100.0100, L503.7505, L500.2500 #### [facility] [address] [place], [address] M100.678on 09-25-2024 M100.678 Pending SARS-CoV-2 (COVID 19) Negative INFLUENZA A Negative INFLUENZA B Negative RSV PCR Negative Normal [facility] Comment on above: Performed By: #### L 501.4021, L506.0400, L501.9520, L100.0100, L503.7505, L500.2500 #### [facility] [address] [place], [address] Venous Duplex Imag/Cj Extre [facility] 09-25-2024 Venous Duplex Imag/Cj Extrem [facility] Imaging Services [address] [place] [address] Venous Duplex Imag/Cj Extrem MR#: [id number] Acct: [id number] Name: LATONYA ELDER Rep #: [id number] : 1970 M 54 From: Kj myers MD PCP: Dr. Beka Bowie MD Status: DEP ER Study: Venous Duplex Imag/Jc Extrem Date of Exam: Exam# [id number] Ordering Dr: Brennon Mckeon DO ADDENDUM by Dr. Kj Brown MD on 09/25/24 at 2020 [id number] STUDY: VENOUS DOPPLER ULTRASOUND - BILATERAL [...] confirms receipt of the report will follow. [id number] STUDY: VENOUS DOPPLER ULTRASOUND - BILATERAL [...] Femoral Distal (more content not included)... Normal [facility] CNOVon 03-17-2024 CNOV Office Visit (UCWSTR) ---- LATONYA ELDER ([id number]) 1970 M Date Time Provider Department 03/17/24 7:30 AM RAD [facility] During your visit today, we recorded the following information about you: Temperature Pulse Respiration Blood pressure 97.2 degrees 72/minute 16/minute 162/90 Weight 107.9 kg Rad Renee APRN.WINDOWS SYSTEMS ADMINISTRATOR 03/17/2024 7:43 AM Signed This note was created using [employer]. Subjective Latonya Elder is a 53 year [...] Date Reviewed: 03/17/2024 Reviewed by: Rad Renee APRN.WINDOWS SYSTEMS ADMINISTRATOR - Fully Assessed Reason for Visit: Eye [...] as needed (more content not included)... Normal [facility] [place] Basophil percentageOrdered B y: Anupam Zuleta on 02-08-2024 Hemoglobin (Bld) [Mass/Vol] 15.7 g/dL 13.0-16.5 [facility] WBC (Bld) [#/Vol] 10.7 10*3/uL 4.4-11.0 [facility] Determination of erythrocyte mean corpuscular volume (MCV)Ordered By: Anupam Zuleta on 02-08-2024 MCV (RBC) [Entitic vol] 89.9 fL 80-94 [facility] Erythrocyte distribution wid th ratioOrdered By: Anupam Zuleta on 02-08-2024 Erythrocyte distribution width (RBC) [Ratio] 13.7 % 11.6-14.6 [facility] Erythrocyte distribution wid th standard deviationOrdered By: Anupam Zuleta on 02-08-2024 Erythrocyte distribution width (RBC) [Entitic vol] 44.6 fL 35.1-43.9 [facility] Hematocrit Auto (Bld) [Volum e fraction]Ordered By: Anupam Zuleta on 02-08-2024 Hematocrit (Bld) [Volume fraction] 48.3 % 40-54 [facility] Laboratory - Hematology and Cell countsOrdered By: Anupam Zuelta on 02-08-2024 MCH (RBC) [Entitic mass] 29.2 pg 27.0-32.0 [facility] MCHC (RBC) [Mass/Vol] 32.5 g/dL 32-36 [facility] Platelet mean volume (Bld) [Entitic vol] 10.4 fL 6.2-12.0 [facility] Platelets (Bld) [#/Vol] 270 10*3/uL 150-450 [facility] RBC Auto (Bld) [#/Vol]Ordere d By: Anupam Zuleta on 02-08-2024 RBC (Bld) [#/Vol] 5.37 10*6/uL 4.6-6.2 [facility] Gram stain for investigation of transfusion reactionOrdered By: Anupam Zuleta on 12-31-2023 Microscopic observation Gram stain Nom (Unsp spec) [facility] Microscopic observation Gram stain Nom (Unsp spec) [facility] Microbial respiratory cultur eOrdered By: Anupam Zuleta on 12-31-2023 Bacteria identified Respiratory culture Nom (Unsp spec) or Staphylococcus aureus isolated. [facility] Bacteria identified Respiratory culture Nom (Unsp spec) or Staphylococcus aureus isolated. [facility] Basophil percentageOrdered B y: Luis Villeda on 12-26-2023 Bilirubin [Mass/Vol] 0.90 mg/dL 0.20-1.00 [facility] Comment on above: For patients on eltr ombopag therapy, use of Dimension [place] TBIL is not recommended. Chloride [Moles/Vol] 107 mmol/L 98-107 [facility] Cholesterol [Mass/Vol] 178 mg/dL <200 [facility] Comment on above: <200 mg/dL Desirable 200-240 mg/dL Borderline >240 mg/dL High Risk Glucose [Mass/Vol] 76 mg/dL 74-106 [facility] Hemoglobin (Bld) [Mass/Vol] 15.0 g/dL 13.0-16.5 [facility] Potassium [Moles/Vol] 3.5 mmol/L 3.5-5.1 [facility] Protein [Mass/Vol] 6.9 g/dL 6.4-8.2 [facility] Sodium [Moles/Vol] 138 mmol/L 136-145 [facility] Triglyceride [Mass/Vol] 140 mg/dL <199 [facility] Comment on above: The drugs N-Acetylcy steine and Metamizole may falsely depress this assay.Serum Triglycerides Reference Interval Normal <150 mg/dL Borderline high 150 - 199 mg/dL High 200 - 499 mg/dL Very High > or = 500 mg/dL WBC (Bld) [#/Vol] 11.5 10*3/uL 4.4-11.0 [facility] Determination of erythrocyte mean corpuscular volume (MCV)Ordered By: Luis Villeda on 12-26-2023 MCV (RBC) [Entitic vol] 88.0 fL 80-94 [facility] Erythrocyte distribution wid th ratioOrdered By: Luiskaron Villeda on 12-26-2023 Erythrocyte distribution width (RBC) [Ratio] 13.6 % 11.6-14.6 [facility] Erythrocyte distribution wid th standard deviationOrdered By: Luis Ronal on 12-26-2023 Erythrocyte distribution width (RBC) [Entitic vol] 43.9 fL 35.1-43.9 [facility] Hematocrit Auto (Bld) [Volum e fraction]Ordered By: Luis Ronal on 12-26-2023 Hematocrit (Bld) [Volume fraction] 44.8 % 40-54 [facility] Laboratory - Chemistry and C hemistry - challengeOrdered By: Luis Villeda on 12-26-2023 Albumin/Globulin [Mass ratio] 1.0 {ratio} 0.9-2.4 [facility] ALP [Catalytic activity/Vol] 107 U/L 45-117 [facility] ALT [Catalytic activity/Vol] 33 U/L 16-61 [facility] Cholesterol in HDL [Mass/Vol] 39 mg/dL >40 [facility] Comment on above: The drugs N-Acetylcy steine and Metamizole may falsely depress this assay. Reference Range HDL <40 mg/dL Low HDL Cholesterol HDL >or= 60 mg/dL High HDL Cholesterol Cholesterol in LDL [Mass/Vol] 111 mg/dL 0-130 [facility] CO2 [Moles/Vol] 23.0 mmol/L 21.0-32.0 [facility] Globulin (S) [Mass/Vol] 3.4 g/dL 2.2-4.2 [facility] Urea nitrogen/Creatinine [Mass ratio] 14.5 mg/mg 10-20 [facility] Laboratory - Hematology and Cell countsOrdered By: Luis Villeda on 12-26-2023 MCH (RBC) [Entitic mass] 29.5 pg 27.0-32.0 [facility] MCHC (RBC) [Mass/Vol] 33.5 g/dL 32-36 [facility] Platelet mean volume (Bld) [Entitic vol] 10.6 fL 6.2-12.0 [facility] Platelets (Bld) [#/Vol] 235 10*3/uL 150-450 [facility] No Panel InformationOrdered By: Maldonado Whitt on 12-26-2023 D-Dimer Quantitative (PE/DVT) < 0.27 FEU/ug/m 0.27-0.49 [facility] Comment on above: NORMAL D-Dimer level (<0.50) indicates no DVT or PE. No Panel InformationOrdered By: Luis Villeda on 12-26-2023 Estimated Creatinine Clearance Calc 121.06 ml/min [facility] Estimated GFR (MDRD) Amer 125 mL/min >60 [facility] Comment on above: GFR Calc Estimated GFR (MDRD) Non-Af Amer 103 mL/min >60 [facility] Comment on above: Non- GFR Calc VLDL Cholesterol 28 mg/dL 5-40 [facility] No Panel InformationOrdered By: Nasim Leblanc on 12-26-2023 Ethyl Alcohol Level < 3.0 mg/dL [facility] Comment on above: The serum:whole bloo d ethanol ratio is approximately 1.14and varies slightly with hematocrit. Medical Alcohol reference interval and critical value innon-tolerant individuals; 50 - 100 Impairment 100 Intoxication 100 - 250 Severe Poisoning 250 - 400 Deep/possible fatal coma RBC Auto (Bld) [#/Vol]Ordere d By: Luis Villeda on 12-26-2023 RBC (Bld) [#/Vol] 5.09 10*6/uL 4.6-6.2 [facility] Serum or plasma calcium jessica urement (mass/volume)Ordered By: Luis Villeda on 12-26-2023 Calcium [Mass/Vol] 9.4 mg/dL 8.5-10.1 [facility] Serum or plasma creatinine m easurement (mass/volume)Ordered By: Luis Villeda on 12-26-2023 Creatinine [Mass/Vol] 0.83 mg/dL 0.70-1.30 [facility] Comment on above: The validity of the calculated GFR & GFRAA in patients over 70 years has not been determined. Clinical correlation is essential. Serum or plasma urea nitroge n measurement (mass/volume)Ordered By: Luis Villeda on 12-26-2023 Urea nitrogen [Mass/Vol] 12 mg/dL 7-18 [facility] Thin prep Papanicolaou smear with manual screeningOrdered By: Luis Villeda on 12-26-2023 Thin prep Papanicolaou smear with manual screening 3.5 g/dL 3.2-5.0 [facility] Thin prep Papanicolaou smear with manual screening 16 U/L 15-37 [facility] Thin prep Papanicolaou smear with manual screening 8 5-15 [facility] Thin prep Papanicolaou smear with manual screeningOrdered By: Maldonado Whitt on 12-26-2023 Thin prep Papanicolaou smear with manual screening 86 mg/dL 74-106 [facility] Comment on above: MANAGEMENT OF PATIEN T CARE PER NURSING PROTOCOL Absolute lymphocyte countOrd ered By: Mary Lewis on 12-25-2023 Lymphocytes Auto (Unsp spec) [#/Vol] 2.00 10*3/uL 0.83-4.51 [facility] Activated partial thrombopla stin time (aPTT) in platelet poor plasma by coagulation aOrdered By: Mary Lewis on 12-25-2023 aPTT Coag (PPP) [Time] 31.7 s 24.1-36.2 [facility] Automated lymphocyte count a s percentage of total leukocytesOrdered By: Mary Lewis on 12-25-2023 Lymphocytes/100 WBC Auto (Unsp spec) 14.1 % 19-41 [facility] Basophil percentageOrdered B y: Mary Lewis on 12-25-2023 Basophils/100 WBC (Bld) 0.4 % 0-1 [facility] Eosinophils/100 WBC (Bld) 1.0 % 0-5 [facility] Monocytes/100 WBC (Bld) 8.8 % 0-10 [facility] Neutrophils (Bld) [#/Vol] 10.6 10*3/uL 2.0-7.7 [facility] Neutrophils/100 WBC (Bld) 75.1 % 47-70 [facility] Immature granulocytes/100 WB C Auto (Bld)Ordered By: Mary Lewis on 12-25-2023 Immature granulocytes/100 WBC (Bld) 0.600 % 0.0-0.9 [facility] Comment on above: IG% - Immature Granu locytes (promyelocytes, myelocytes and metamyelocytes) > 1% indicates that a LEFT SHIFT is Present. Laboratory - Chemistry and C hemistry - challengeOrdered By: Nasim Leblanc on 12-25-2023 Amylase [Catalytic activity/Vol] 24 U/L 15-85 [facility] Laboratory - Chemistry and C hemistry - challengeOrdered By: Mary Lewis on 12-25-2023 Magnesium [Mass/Vol] 1.8 mg/dL 1.6-2.6 [facility] Laboratory - Hematology and Cell countsOrdered By: Mary Lewis on 12-25-2023 Nucleated RBC/100 WBC (Bld) [Ratio] 0 % 0-5 [facility] No Panel InformationOrdered By: Maldonado Whitt on 12-25-2023 Activated Clotting Time 228 sec 74-137 [facility] Activated Clotting Time 228 sec 74-137 [facility] Serum or plasma thyroid stim ulating hormone (TSH) measurement (units/volume)Ordered By: Mary Lewis on 12-25-2023 TSH Qn 1.74 uIU/mL 0.358-3.74 [facility] Whole blood hemoglobin A1c/t otal hemoglobin ratio (mass fraction)Ordered By: Mary Lewis on 12-25-2023 HbA1c (Bld) [Mass fraction] 7.3 % 3.8-5.6 [facility] Comment on above: Normal < 5.7 % Predi abetic 5.7 - 6.4 % Diabetic >or= 6.5 % Please note range changes. Absolute lymphocyte countOrd ered By: Pollo Bond on 12-24-2023 Lymphocytes Auto (Unsp spec) [#/Vol] 2.44 10*3/uL 0.83-4.51 [facility] Activated partial thrombopla stin time (aPTT) in platelet poor plasma by coagulation aOrdered By: Pollo Bond on 12-24-2023 aPTT Coag (PPP) [Time] 24.7 s 24.1-36.2 [facility] Automated lymphocyte count a s percentage of total leukocytesOrdered By: Pollo Bond on 12-24-2023 Lymphocytes/100 WBC Auto (Unsp spec) 20.4 % 19-41 [facility] Basophil percentageOrdered B y: Pollo Bond on 12-24-2023 Basophils/100 WBC (Bld) 0.7 % 0-1 [facility] Chloride [Moles/Vol] 104 mmol/L 98-107 [facility] Eosinophils/100 WBC (Bld) 0.9 % 0-5 [facility] Glucose [Mass/Vol] 286 mg/dL 74-106 [facility] Comment on above: Glucose result great er than or equal to 200 mg/dLsuggests DIABETES MELLITUS per A.D.A. criteria. Hemoglobin (Bld) [Mass/Vol] 17.3 g/dL 13.0-16.5 [facility] Monocytes/100 WBC (Bld) 10.0 % 0-10 [facility] Neutrophils (Bld) [#/Vol] 8.1 10*3/uL 2.0-7.7 [facility] Neutrophils/100 WBC (Bld) 67.1 % 47-70 [facility] Potassium [Moles/Vol] 3.6 mmol/L 3.5-5.1 [facility] Sodium [Moles/Vol] 141 mmol/L 136-145 [facility] WBC (Bld) [#/Vol] 12.0 10*3/uL 4.4-11.0 [facility] Determination of erythrocyte mean corpuscular volume (MCV)Ordered By: Pollo Bond on 12-24-2023 MCV (RBC) [Entitic vol] 88.3 fL 80-94 [facility] Erythrocyte distribution wid th ratioOrdered By: Pollo Bond on 12-24-2023 Erythrocyte distribution width (RBC) [Ratio] 13.5 % 11.6-14.6 [facility] Erythrocyte distribution wid th standard deviationOrdered By: Pollo Bond on 12-24-2023 Erythrocyte distribution width (RBC) [Entitic vol] 43.1 fL 35.1-43.9 [facility] Hematocrit Auto (Bld) [Volum e fraction]Ordered By: Pollo Bond on 12-24-2023 Hematocrit (Bld) [Volume fraction] 51.4 % 40-54 [facility] Immature granulocytes/100 WB C Auto (Bld)Ordered By: Pollo Bond on 12-24-2023 Immature granulocytes/100 WBC (Bld) 0.900 % 0.0-0.9 [facility] Comment on above: IG% - Immature Granu locytes (promyelocytes, myelocytes and metamyelocytes) > 1% indicates that a LEFT SHIFT is Present. International normalized rat io (INR) calculationOrdered By: Pollo Bond on 12-24-2023 INR Coag (PPP) [Relative time] 0.9 {INR} [facility] Laboratory - Chemistry and C hemistry - challengeOrdered By: Pollo Bond on 12-24-2023 CO2 [Moles/Vol] 28.0 mmol/L 21.0-32.0 [facility] Natriuretic peptide B (Bld) [Mass/Vol] 103.6 pg/mL 0-100 [facility] Urea nitrogen/Creatinine [Mass ratio] 12.4 mg/mg 10-20 [facility] Laboratory - CoagulationOrde red By: Pollo Bond on 12-24-2023 PT Coag (PPP) [Time] 12.0 s 11.7-14.9 [facility] Laboratory - Hematology and Cell countsOrdered By: Pollo Bond on 12-24-2023 MCH (RBC) [Entitic mass] 29.7 pg 27.0-32.0 [facility] MCHC (RBC) [Mass/Vol] 33.7 g/dL 32-36 [facility] Nucleated RBC/100 WBC (Bld) [Ratio] 0 % 0-5 [facility] Platelets (Bld) [#/Vol] 274 10*3/uL 150-450 [facility] No Panel InformationOrdered By: Mary Lewis on 12-24-2023 Troponin I High Sensitivity 387 pg/mL 3.0-78.0 [facility] Comment on above: Critical Result(s) C alled at: 21:25:09 12/24/2023 by: ROSARIO GONZALES TO LUÍS DAWSON. Results read back by same. Please Note: New Test Units and Gender Specific Reference Ranges. For more information see Policy Stat Procedure [place] High Sensitivity Troponin (TNIH) and attachments. No Panel InformationOrdered By: Pollo Bond on 12-24-2023 Troponin I High Sensitivity 280 pg/mL 3.0-78.0 [facility] Comment on above: Critical Result(s) C alled at: 15:17:34 12/24/2023 by: Magda Irving to Moisés. Results read back by same. Please Note: New Test Units and Gender Specific Reference Ranges. For more information see Policy Stat Procedure [place] High Sensitivity Troponin (TNIH) and attachments. D-Dimer Quantitative (PE/DVT) 0.47 FEU/ug/m 0.27-0.49 [facility] Comment on above: NORMAL D-Dimer level (<0.50) indicates no DVT or PE. Estimated GFR (MDRD) Amer 88 mL/min >60 [facility] Comment on above: GFR Calc Estimated GFR (MDRD) Non-Af Amer 72 mL/min >60 [facility] Comment on above: Non- GFR Calc Platelet mean volume James-Ec ker (Bld) [Entitic vol]Ordered By: Pollo Bond on 12-24-2023 Platelet mean volume (Bld) [Entitic vol] 10.9 fL 6.2-12.0 [facility] RBC Auto (Bld) [#/Vol]Ordere d By: Pollo Bond on 12-24-2023 RBC (Bld) [#/Vol] 5.82 10*6/uL 4.6-6.2 [facility] Serum or plasma calcium jessica urement (mass/volume)Ordered By: Pollo Bond on 12-24-2023 Calcium [Mass/Vol] 9.8 mg/dL 8.5-10.1 [facility] Serum or plasma creatinine m easurement (mass/volume)Ordered By: Pollo Bond on 12-24-2023 Creatinine [Mass/Vol] 1.13 mg/dL 0.70-1.30 [facility] Comment on above: The validity of the calculated GFR & GFRAA in patients over 70 years has not been determined. Clinical correlation is essential. Serum or plasma urea nitroge n measurement (mass/volume)Ordered By: Pollo Bond on 12-24-2023 Urea nitrogen [Mass/Vol] 14 mg/dL 7-18 [facility] Thin prep Papanicolaou smear with manual screeningOrdered By: Pollo Bond on 12-24-2023 Thin prep Papanicolaou smear with manual screening 9 5-15 [facility] Absolute lymphocyte countOrd ered By: Luis York on 11-21-2023 Lymphocytes Auto (Unsp spec) [#/Vol] 2.69 10*3/uL 0.83-4.51 [facility] Basophil percentageOrdered B y: Luis York on 11-21-2023 Basophils/100 WBC (Bld) 0.5 % 0-1 [facility] Chloride [Moles/Vol] 107 mmol/L 98-107 [facility] Eosinophils/100 WBC (Bld) 2.0 % 0-5 [facility] Glucose [Mass/Vol] 162 mg/dL 74-106 [facility] Comment on above: Fasting Glucose resu lt greater than or equal to 126 mg/dL suggests DIABETES MELLITUS per A.D.A. criteria. Neutrophils (Bld) [#/Vol] 6.6 10*3/uL 2.0-7.7 [facility] Neutrophils/100 WBC (Bld) 62.0 % 47-70 [facility] Potassium [Moles/Vol] 3.8 mmol/L 3.5-5.1 [facility] Sodium [Moles/Vol] 139 mmol/L 136-145 [facility] WBC (Bld) [#/Vol] 10.7 10*3/uL 4.4-11.0 [facility] Blood erythrocytes count (nu mber/volume)Ordered By: Luis York on 11-21-2023 RBC (Bld) [#/Vol] 4.94 10*6/uL 4.6-6.2 [facility] Blood hemoglobin measurement (mass/volume)Ordered By: Luis York on 11-21-2023 Hemoglobin (Bld) [Mass/Vol] 15.0 g/dL 13.0-16.5 [facility] Blood lymphocytes/100 leukoc ytesOrdered By: Luis York on 11-21-2023 Lymphocytes/100 WBC (Bld) 25.2 % 19-41 [facility] Blood monocytes/100 leukocyt esOrdered By: Luis York on 11-21-2023 Monocytes/100 WBC (Bld) 9.8 % 0-10 [facility] Blood platelet mean volumeOr dered By: Luis York on 11-21-2023 Platelet mean volume (Bld) [Entitic vol] 10.0 fL 6.2-12.0 [facility] Determination of erythrocyte mean corpuscular volume (MCV)Ordered By: Luis York on 11-21-2023 MCV (RBC) [Entitic vol] 88.3 fL 80-94 [facility] Hematocrit Auto (Bld) [Volum e fraction]Ordered By: Luis York on 11-21-2023 Hematocrit (Bld) [Volume fraction] 43.6 % 40-54 [facility] Laboratory - Chemistry and C hemistry - challengeOrdered By: Luis York on 11-21-2023 CO2 [Moles/Vol] 28.0 mmol/L 21.0-32.0 [facility] Urea nitrogen/Creatinine [Mass ratio] 16.7 mg/mg 10-20 [facility] Laboratory - Hematology and Cell countsOrdered By: Luis York on 11-21-2023 Erythrocyte distribution width (RBC) [Entitic vol] 43.4 fL 35.1-43.9 [facility] Erythrocyte distribution width (RBC) [Ratio] 13.3 % 11.6-14.6 [facility] Immature granulocytes/100 WBC (Bld) 0.500 % 0.0-0.9 [facility] Comment on above: IG% - Immature Granu locytes (promyelocytes, myelocytes and metamyelocytes) > 1% indicates that a LEFT SHIFT is Present. MCH (RBC) [Entitic mass] 30.4 pg 27.0-32.0 [facility] Nucleated RBC/100 WBC (Bld) [Ratio] 0 % 0-5 [facility] MCHC Auto (RBC) [Mass/Vol]Or dered By: Luis York on 11-21-2023 MCHC (RBC) [Mass/Vol] 34.4 g/dL 32-36 [facility] No Panel InformationOrdered By: Luis York on 11-21-2023 Troponin I High Sensitivity 40 pg/mL 3.0-78.0 [facility] Comment on above: Please Note: New [place] t Units and Gender Specific Reference Ranges. For more information see Policy Stat Procedure [place] High Sensitivity Troponin (TNIH) and attachments. Estimated Creatinine Clearance Calc 73.33 ml/min [facility] Estimated GFR (MDRD) Amer 87 mL/min >60 [facility] Comment on above: GFR Calc Estimated GFR (MDRD) Non-Af Amer 72 mL/min >60 [facility] Comment on above: Non- GFR Calc Platelets bldOrdered By: Ousmane York on 11-21-2023 Platelets (Bld) [#/Vol] 260 10*3/uL 150-450 [facility] Serum or plasma calcium jessica urement (mass/volume)Ordered By: Luis York on 11-21-2023 Calcium [Mass/Vol] 9.4 mg/dL 8.5-10.1 [facility] Serum or plasma creatinine m easurement (mass/volume)Ordered By: Luis York on 11-21-2023 Creatinine [Mass/Vol] 1.14 mg/dL 0.70-1.30 [facility] Comment on above: The validity of the calculated GFR & GFRAA in patients over 70 years has not been determined. Clinical correlation is essential. Serum or plasma urea nitroge n measurement (mass/volume)Ordered By: Luis York on 11-21-2023 Urea nitrogen [Mass/Vol] 19 mg/dL 7-18 [facility] Thin prep Papanicolaou smear with manual screeningOrdered By: Luis York on 11-21-2023 Thin prep Papanicolaou smear with manual screening 4 5-15 [facility] Absolute lymphocyte counton 06-26-2022 Lymphocytes Auto (Unsp spec) [#/Vol] 3.53 10*3/uL 0.83-4.51 [facility] Work Phone: Lymphocytes Auto (Unsp spec) [#/Vol] 3.42 10*3/uL 0.83-4.51 [facility] Work Phone: Basophil percentageon 06-26- 2021 Basophils/100 WBC (Bld) 0.6 % 0-1 [facility] Work Phone: Bilirubin [Mass/Vol] 0.50 mg/dL 0.20-1.00 [facility] Work Phone: Comment on above: For patients on eltr ombopag therapy, use of Dimension [place] TBIL is not recommended. Chloride [Moles/Vol] 106 mmol/L 98-107 [facility] Work Phone: Eosinophils/100 WBC (Bld) 2.3 % 0-5 [facility] Work Phone: Glucose [Mass/Vol] 157 mg/dL 74-106 [facility] Work Phone: Comment on above: Fasting Glucose resu lt greater than or equal to 126 mg/dL suggests DIABETES MELLITUS per A.D.A. criteria. Neutrophils (Bld) [#/Vol] 7.3 10*3/uL 2.0-7.7 [facility] Work Phone: Neutrophils/100 WBC (Bld) 58.6 % 47-70 [facility] Work Phone: Potassium [Moles/Vol] 4.6 mmol/L 3.5-5.1 [facility] Work Phone: Comment on above: Moderate Hemolysis, Result may be falsely increased. Protein [Mass/Vol] 7.1 g/dL 6.4-8.2 [facility] Work Phone: Sodium [Moles/Vol] 138 mmol/L 136-145 [facility] Work Phone: WBC (Bld) [#/Vol] 12.5 10*3/uL 4.4-11.0 [facility] Work Phone: Basophils/100 WBC (Bld) 0.5 % 0-1 [facility] Work Phone: Chloride [Moles/Vol] 107 mmol/L 98-107 [facility] Work Phone: Eosinophils/100 WBC (Bld) 2.1 % 0-5 [facility] Work Phone: Glucose [Mass/Vol] 186 mg/dL 74-106 [facility] Work Phone: Comment on above: Fasting Glucose resu lt greater than or equal to 126 mg/dL suggests DIABETES MELLITUS per A.D.A. criteria. Neutrophils (Bld) [#/Vol] 8.0 10*3/uL 2.0-7.7 [facility] Work Phone: Neutrophils/100 WBC (Bld) 60.9 % 47-70 [facility] Work Phone: Potassium [Moles/Vol] 3.8 mmol/L 3.5-5.1 [facility] Work Phone: Sodium [Moles/Vol] 140 mmol/L 136-145 [facility] Work Phone: WBC (Bld) [#/Vol] 13.1 10*3/uL 4.4-11.0 [facility] Work Phone: Blood erythrocytes count (nu mber/volume)on 06-26-2022 RBC (Bld) [#/Vol] 4.86 10*6/uL 4.6-6.2 [facility] Work Phone: RBC (Bld) [#/Vol] 4.94 10*6/uL 4.6-6.2 [facility] Work Phone: Blood hemoglobin measurement (mass/volume)on 06-26-2022 Hemoglobin (Bld) [Mass/Vol] 14.8 g/dL 13.0-16.5 [facility] Work Phone: Hemoglobin (Bld) [Mass/Vol] 15.6 g/dL 13.0-16.5 [facility] Work Phone: Blood lymphocytes/100 leukoc yteson 06-26-2022 Lymphocytes/100 WBC (Bld) 28.3 % 19-41 [facility] Work Phone: [phone] Lymphocytes/100 WBC (Bld) 26.1 % 19-41 [facility] Work Phone: Blood monocytes/100 leukocyt eson 06-26-2022 Monocytes/100 WBC (Bld) 9.6 % 0-10 [facility] Work Phone: [phone] Monocytes/100 WBC (Bld) 9.7 % 0-10 [facility] Work Phone: Blood platelet mean volumeon 06-26-2022 Platelet mean volume (Bld) [Entitic vol] 10.5 fL 6.2-12.0 [facility] Work Phone: [phone] Platelet mean volume (Bld) [Entitic vol] 10.1 fL 6.2-12.0 [facility] Work Phone: [phone] Determination of erythrocyte mean corpuscular volume (MCV)on 06-26-2022 MCV (RBC) [Entitic vol] 90.1 fL 80-94 [facility] Work Phone: [phone] MCV (RBC) [Entitic vol] 89.1 fL 80-94 [facility] Work Phone: [phone] Glucose Glucometer (dC) [M ass/Vol]on 06-26-2022 Glucose [Mass/Vol] 217 mg/dL 74-106 [facility] Work Phone: Comment on above: MANAGEMENT OF PATIEN T CARE PER NURSING PROTOCOL Hematocrit Auto (Bld) [Volum e fraction]on 06-26-2022 Hematocrit (Bld) [Volume fraction] 43.8 % 40-54 [facility] Work Phone: [phone] Hematocrit (Bld) [Volume fraction] 44.0 % 40-54 [facility] Work Phone: INR in Blood by Coagulation assayon 06-26-2022 INR Coag (Bld) [Relative time] 0.9 {INR} [facility] Work Phone: [phone] Laboratory - Chemistry and C hemistry - challengeon 06-26-2022 ALP [Catalytic activity/Vol] 84 U/L 45-117 [facility] Work Phone: [phone] ALT [Catalytic activity/Vol] 22 U/L 16-61 [facility] Work Phone: [phone] CO2 [Moles/Vol] 27.0 mmol/L 21.0-32.0 [facility] Work Phone: Globulin (S) [Mass/Vol] 3.9 g/dL 2.2-4.2 [facility] Work Phone: Urea nitrogen/Creatinine [Mass ratio] 19.6 mg/mg 10- [facility] Work Phone: [phone] CO2 [Moles/Vol] 28.0 mmol/L 21.0-32.0 [facility] Work Phone: [phone] Magnesium [Mass/Vol] 2.1 mg/dL 1.6-2.6 [facility] Work Phone: Urea nitrogen/Creatinine [Mass ratio] 16.5 mg/mg 10-20 [facility] Work Phone: Laboratory - Coagulationon 0 06-26-2022 aPTT Coag (Bld) [Time] 23.9 s 24.1-36.2 [facility] Work Phone: PT Coag (PPP) [Time] 11.8 s 11.7-14.9 [facility] Work Phone: Laboratory - Hematology and Cell countson 06-26-2022 Erythrocyte distribution width (RBC) [Entitic vol] 45.3 fL 35.1-43.9 [facility] Work Phone: Erythrocyte distribution width (RBC) [Ratio] 13.8 % 11.6-14.6 [facility] Work Phone: Immature granulocytes/100 WBC (Bld) 0.600 % 0.0-0.9 [facility] Work Phone: [phone] Comment on above: IG% - Immature Granu locytes (promyelocytes, myelocytes and metamyelocytes) > 1% indicates that a LEFT SHIFT is Present. MCH (RBC) [Entitic mass] 30.5 pg 27.0-32.0 [facility] Work Phone: [phone] Nucleated RBC/100 WBC (Bld) [Ratio] 0 % 0-5 [facility] Work Phone: [phone] Erythrocyte distribution width (RBC) [Entitic vol] 43.9 fL 35.1-43.9 [facility] Work Phone: [phone] Erythrocyte distribution width (RBC) [Ratio] 13.4 % 11.6-14.6 [facility] Work Phone: [phone] Immature granulocytes/100 WBC (Bld) 0.700 % 0.0-0.9 [facility] Work Phone: [phone] Comment on above: IG% - Immature Granu locytes (promyelocytes, myelocytes and metamyelocytes) > 1% indicates that a LEFT SHIFT is Present. MCH (RBC) [Entitic mass] 31.6 pg 27.0-32.0 [facility] Work Phone: [phone] Nucleated RBC/100 WBC (Bld) [Ratio] 0 % 0-5 [facility] Work Phone: [phone] MCHC Auto (RBC) [Mass/Vol]on 06-26-2022 MCHC (RBC) [Mass/Vol] 33.8 g/dL 32-36 [facility] Work Phone: [phone] MCHC (RBC) [Mass/Vol] 35.5 g/dL -36 [facility] Work Phone: [phone] Panel Informationon 06-26 Estimated Creatinine Clearance Calc 98.28 ml/min [facility] Work Phone: [phone] Estimated GFR (MDRD) Amer 119 mL/min >60 [facility] Work Phone: Comment on above: GFR Calc Estimated GFR (MDRD) Non-Af Amer 99 mL/min >60 [facility] Work Phone: Comment on above: Non- GFR Calc Troponin I High Sensitivity 127 pg/mL 3.0-78.0 [facility] Work Phone: Comment on above: Critical Result(s) C alled at: 07:54:30 06/26/2022 by: Magda Melvin. Results read back by same. Please Note: New Test Units and Gender Specific Reference Ranges. For more information see Policy Stat Procedure [place] High Sensitivity Troponin (TNIH) and attachments. Troponin I High Sensitivity 118 pg/mL 3.0-78.0 [facility] Work Phone: Comment on above: Please Note: New Sirisha t Units and Gender Specific Reference Ranges. For more information see Policy Stat Procedure [place] High Sensitivity Troponin (TNIH) and attachments. Estimated Creatinine Clearance Calc 78.44 ml/min [facility] Work Phone: Estimated GFR (MDRD) Amer 92 mL/min >60 [facility] Work Phone: Comment on above: GFR Calc Estimated GFR (MDRD) Non-Af Amer 76 mL/min >60 [facility] Work Phone: Comment on above: Non- GFR Calc Platelets bldon 06-26-2022 Platelets (Bld) [#/Vol] 239 10*3/uL 150-450 [facility] Work Phone: Platelets (Bld) [#/Vol] 221 10*3/uL 150-450 [facility] Work Phone: [phone] Serum or plasma albumin jessica urement (mass/volume)on 06-26-2022 Albumin [Mass/Vol] 3.2 g/dL 3.2-5.0 [facility] Work Phone: [phone] Serum or plasma albumin/glob ulin mass ratioon 06-26-2022 Albumin/Globulin [Mass ratio] 0.8 {ratio} 0.9-2.4 [facility] Work Phone: Serum or plasma calcium jessica urement (mass/volume)on 06-26-2022 Calcium [Mass/Vol] 8.4 mg/dL 8.5-10.1 [facility] Work Phone: [phone] Calcium [Mass/Vol] 9.2 mg/dL 8.5-10.1 [facility] Work Phone: [phone] Serum or plasma creatinine m easurement (mass/volume)on 06-26-2022 Creatinine [Mass/Vol] 0.87 mg/dL 0.70-1.30 [facility] Work Phone: [phone] Comment on above: The validity of the calculated GFR & GFRAA in patients over 70 years has not been determined. Clinical correlation is essential. Creatinine [Mass/Vol] 1.09 mg/dL 0.70-1.30 [facility] Work Phone: Comment on above: The validity of the calculated GFR & GFRAA in patients over 70 years has not been determined. Clinical correlation is essential. Serum or plasma urea nitroge n measurement (mass/volume)on 06-26-2022 Urea nitrogen [Mass/Vol] 17 mg/dL 7-18 [facility] Work Phone: [phone] Urea nitrogen [Mass/Vol] 18 mg/dL 7-18 [facility] Work Phone: [phone] Thin prep Papanicolaou smear with manual screeningon 06-26-2022 Thin prep Papanicolaou smear with manual screening 31 U/L 15-37 [facility] Work Phone: [phone] Comment on above: Moderate Hemolysis, Result may be falsely increased. Thin prep Papanicolaou smear with manual screening 5 5-15 [facility] Work Phone: [phone] Thin prep Papanicolaou smear with manual screening 5 5-15 [facility] Work Phone: [phone] Absolute lymphocyte counton 04-27-2022 Lymphocytes Auto (Unsp spec) [#/Vol] 3.16 10*3/uL 0.83-4.51 [facility] Work Phone: [phone] Basophil percentageon 2021 Basophils/100 WBC (Bld) 0.3 % 0-1 [facility] Work Phone: Chloride [Moles/Vol] 102 mmol/L 98-107 [facility] Work Phone: Eosinophils/100 WBC (Bld) 1.3 % 0-5 [facility] Work Phone: Glucose [Mass/Vol] 119 mg/dL 74-106 [facility] Work Phone: Comment on above: Fasting Glucose resu lt from 100 to 125 mg/dL suggests IMPAIRED HOMEOSTASIS per A.D.A. criteria. Neutrophils (Bld) [#/Vol] 9.8 10*3/uL 2.0-7.7 [facility] Work Phone: Neutrophils/100 WBC (Bld) 66.9 % 47-70 [facility] Work Phone: Potassium [Moles/Vol] 3.4 mmol/L 3.5-5.1 [facility] Work Phone: Sodium [Moles/Vol] 137 mmol/L 136-145 [facility] Work Phone: WBC (Bld) [#/Vol] 14.6 10*3/uL 4.4-11.0 [facility] Work Phone: Blood erythrocytes count (nu mber/volume)on 04-27-2022 RBC (Bld) [#/Vol] 4.94 10*6/uL 4.6-6.2 [facility] Work Phone: Blood hemoglobin measurement (mass/volume)on 04-27-2022 Hemoglobin (Bld) [Mass/Vol] 14.8 g/dL 13.0-16.5 [facility] Work Phone: Blood lymphocytes/100 leukoc yteson 04-27-2022 Lymphocytes/100 WBC (Bld) 21.6 % 19-41 [facility] Work Phone: Blood monocytes/100 leukocyt eson 04-27-2022 Monocytes/100 WBC (Bld) 9.2 % 0-10 [facility] Work Phone: Blood platelet mean volumeon 04-27-2022 Platelet mean volume (Bld) [Entitic vol] 10.0 fL 6.2-12.0 [facility] Work Phone: Determination of erythrocyte mean corpuscular volume (MCV)on 04-27-2022 MCV (RBC) [Entitic vol] 89.3 fL 80-94 [facility] Work Phone: Glucose Glucometer (BldC) [M ass/Vol]on 04-27-2022 Glucose [Mass/Vol] 110 mg/dL 74-106 [facility] Work Phone: Comment on above: MANAGEMENT OF PATIEN T CARE PER NURSING PROTOCOL Hematocrit Auto (Bld) [Volum e fraction]on 04-27-2022 Hematocrit (Bld) [Volume fraction] 44.1 % 40-54 [facility] Work Phone: INR in Blood by Coagulation assayon 04-27-2022 INR Coag (Bld) [Relative time] 1.0 {INR} [facility] Work Phone: Laboratory - Chemistry and C hemistry - challengeon 04-27-2022 CO2 [Moles/Vol] 30.0 mmol/L 21.0-32.0 [facility] Work Phone: Urea nitrogen/Creatinine [Mass ratio] 16.2 mg/mg 10-20 [facility] Work Phone: Laboratory - Coagulationon 0 04-27-2022 aPTT Coag (Bld) [Time] 24.8 s 24.1-36.2 [facility] Work Phone: PT Coag (PPP) [Time] 12.6 s 11.7-14.9 [facility] Work Phone: Laboratory - Hematology and Cell countson 04-27-2022 Erythrocyte distribution width (RBC) [Entitic vol] 45.2 fL 35.1-43.9 [facility] Work Phone: Erythrocyte distribution width (RBC) [Ratio] 14.0 % 11.6-14.6 [facility] Work Phone: Immature granulocytes/100 WBC (Bld) 0.700 % 0.0-0.9 [facility] Work Phone: Comment on above: IG% - Immature Granu locytes (promyelocytes, myelocytes and metamyelocytes) > 1% indicates that a LEFT SHIFT is Present. MCH (RBC) [Entitic mass] 30.0 pg 27.0-32.0 [facility] Work Phone: Nucleated RBC/100 WBC (Bld) [Ratio] 0 % 0-5 [facility] Work Phone: MCHC Auto (RBC) [Mass/Vol]on 04-27-2022 MCHC (RBC) [Mass/Vol] 33.6 g/dL 32-36 [facility] Work Phone: No Panel Informationon 04-27 Troponin I High Sensitivity 79 pg/mL 3.0-78.0 [facility] Work Phone: Comment on above: Please Note: New Sirisha t Units and Gender Specific Reference Ranges. For more information see Policy Stat Procedure [place] High Sensitivity Troponin (TNIH) and attachments. Estimated Creatinine Clearance Calc 86.36 ml/min [facility] Work Phone: Estimated GFR (MDRD) Amer 103 mL/min >60 [facility] Work Phone: [phone] Comment on above: GFR Calc Estimated GFR (MDRD) Non-Af Amer 85 mL/min >60 [facility] Work Phone: Comment on above: Non- GFR Calc Troponin I High Sensitivity 81 pg/mL 3.0-78.0 [facility] Work Phone: Comment on above: Please Note: New Sirisha t Units and Gender Specific Reference Ranges. For more information see Policy Stat Procedure [place] High Sensitivity Troponin (TNIH) and attachments. Platelets bldon 04-27-2022 Platelets (Bld) [#/Vol] 270 10*3/uL 150-450 [facility] Work Phone: Serum or plasma calcium jessica urement (mass/volume)on 04-27-2022 Calcium [Mass/Vol] 9.1 mg/dL 8.5-10.1 [facility] Work Phone: Serum or plasma creatinine m easurement (mass/volume)on 04-27-2022 Creatinine [Mass/Vol] 0.99 mg/dL 0.70-1.30 [facility] Work Phone: Comment on above: The validity of the calculated GFR & GFRAA in patients over 70 years has not been determined. Clinical correlation is essential. Serum or plasma urea nitroge n measurement (mass/volume)on 04-27-2022 Urea nitrogen [Mass/Vol] 16 mg/dL 7-18 [facility] Work Phone: Thin prep Papanicolaou smear with manual screeningon 04-27-2022 Thin prep Papanicolaou smear with manual screening 5 5-15 [facility] Work Phone: Laboratory - Hematology and Cell countson 03-30-2022 HbA1c (Bld) [Mass fraction] 6.1 % 4.2-6.3 [facility] Work Phone: Laboratory - Hematology and Cell countson 02-15-2022 HbA1c (Bld) [Mass fraction] 6.0 % [facility] Work Phone: Basophil percentageon 2021 Bilirubin [Mass/Vol] 0.30 mg/dL 0.20-1.00 [facility] Work Phone: Comment on above: For patients on eltr ombopag therapy, use of Dimension [place] TBIL is not recommended. Cholesterol [Mass/Vol] 125 mg/dL <200 [facility] Work Phone: Comment on above: <200 mg/dL Desirable 200-240 mg/dL Borderline >240 mg/dL High Risk Protein [Mass/Vol] 7.5 g/dL 6.4-8.2 [facility] Work Phone: Triglyceride [Mass/Vol] 68 mg/dL [facility] Work Phone: Comment on above: The drugs N-Acetylcy steine and Metamizole may falsely depress this assay.Serum Triglycerides Reference Interval Normal <150 mg/dL Borderline high 150 - 199 mg/dL High 200 - 499 mg/dL Very High > or = 500 mg/dL Direct bilirubinon Bilirubin.direct [Mass/Vol] 0.11 mg/dL 0.00-0.30 [facility] Work Phone: Laboratory - Chemistry and C hemistry - challengeon 01-18-2022 ALP [Catalytic activity/Vol] 89 U/L 45-117 [facility] Work Phone: ALT [Catalytic activity/Vol] 21 U/L 16-61 [facility] Work Phone: Globulin (S) [Mass/Vol] 4.0 g/dL 2.2-4.2 [facility] Work Phone: Serum or plasma albumin jessica urement (mass/volume)on 01-18-2022 Albumin [Mass/Vol] 3.5 g/dL 3.2-5.0 [facility] Work Phone: Serum or plasma cholesterol in HDL measurement (mass/volume)on 01-18-2022 Cholesterol in HDL [Mass/Vol] 41 mg/dL [facility] Work Phone: Comment on above: The drugs N-Acetylcy steine and Metamizole may falsely depress this assay. Reference Range HDL <40 mg/dL Low HDL Cholesterol HDL >or= 60 mg/dL High HDL Cholesterol Serum or plasma cholesterol in VLDL measurement (mass/volume)on 01-18-2022 Cholesterol in VLDL [Mass/Vol] 14 mg/dL 5-40 [facility] Work Phone: Serum or plasma low density lipoprotein (LDL) cholesterol measurement (mass/volume)on 01-18-2022 Cholesterol in LDL [Mass/Vol] 70 mg/dL 0-130 [facility] Work Phone: [phone] Thin prep Papanicolaou smear with manual screeningon 01-18-2022 Thin prep Papanicolaou smear with manual screening 12 U/L 15-37 [facility] Work Phone: Office Visit: Stephen 07-17-20 Dietary management education, guidance, and counseling (procedure) yes Invalid Interpretation Code [facility] Work Phone: [phone] Documentation of current medications (procedure) Done Invalid Interpretation Code [facility] Work Phone: [phone] Fall risk assessment No Invalid Interpretation Code [facility] Work Phone: [phone] Protein mass conc Done [facility] Work Phone: [phone] Lab Report: Basic Metabolic Profile (BMP)on 04-27-2017 Anion gap 4 mmol/L Low 5-15 [facility] Work Phone: [phone] Anion gap molar conc 4 mmol/L Low 5-15 [facility] Work Phone: [phone] BUN/Creatinine Ratio 14.3 RATIO Invalid Interpretation Code 10-20 [facility] Work Phone: [phone] Calcium 9.0 mg/dL Invalid Interpretation Code 8.5-10.1 [facility] Work Phone: [phone] Chloride 106 mmol/L Invalid Interpretation Code 98-107 [facility] Work Phone: [phone] CO2 32.0 mmol/L Invalid Interpretation Code 21.0-32.0 [facility] Work Phone: [phone] CO2 ppres (BldV) 32.0 mmol/L 21.0-32.0 [facility] Work Phone: [phone] Creatinine 1.12 mg/dL Invalid Interpretation Code 0.70-1.30 [facility] Work Phone: [phone] eGFR (non-black) 91 mL/min/{1.73_m2} Invalid Interpretation Code >60 [facility] Work Phone: [phone] eGFR (non-black) 75 mL/min/{1.73_m2} Invalid Interpretation Code >60 [facility] Work Phone: [phone] EST GFR - AA 91 mL/min >60 [facility] Work Phone: [phone] Glucose 101 mg/dL Invalid Interpretation Code 70-110 [employer] Work Phone: [phone] Glucose mass conc 101 mg/dL 70-110 [employer] Work Phone: [phone] Potassium 4.5 mmol/L Invalid Interpretation Code 3.5-5.1 [employer] [facility] Work Phone: [phone] Sodium 142 mmol/L Invalid Interpretation Code 136-145 [employer] Work Phone: [phone] Urea nitrogen 16 mg/dL Invalid Interpretation Code 7-18 [employer] Work Phone: [phone] Lab Report: Lipid Profileon 04-27-2017 Cholesterol 135 mg/dL Invalid Interpretation Code 200 [employer] Work Phone: [phone] HDL Cholesterol 35 mg/dL Low [employer] Work Phone: [phone] LDL Cholesterol 81 mg/dL Invalid Interpretation Code 0-130 [employer] [facility] Work Phone: [phone] Triglyceride 97 mg/dL Invalid Interpretation Code [employer] Work Phone: [phone] very low density lipoproteins 19 mg/dL Invalid Interpretation Code 5-40 [employer] [facility] Work Phone: [phone] Lab Report: Liver Profileon 04-27-2017 Alanine aminotransferase (ALT) 56 U/L Invalid Interpretation Code 12-78 [employer] Work Phone: [phone] Albumin 3.7 g/dL Invalid Interpretation Code 3.4-5.0 [employer] Phone: [phone] Alkaline phosphatase (ALP) 100 U/L Invalid Interpretation Code 45-117 [employer] Work Phone: [phone] ALP enzyme act/vol (Bld) 100 U/L 45-117 [employer] Work Phone: [phone] Aspartate aminotransferase (AST) 17 U/L Invalid Interpretation Code 15-37 [employer] Work Phone: [phone] Bilirubin (direct) 0.13 mg/dL Invalid Interpretation Code 0.00-0.30 [employer] Work Phone: [phone] Bilirubin (total) 0.70 mg/dL Invalid Interpretation Code 0.20-1.00 [employer] Work Phone: [phone] Globulin 3.6 g/dL High 2.3-3.5 [facility] Work Phone: [phone] Globulin mass conc (S) 3.6 g/dL High 2.3-3.5 [facility] Work Phone: [phone] Protein 7.3 g/dL Invalid Interpretation Code 6.4-8.2 [facility] Work Phone: [phone] Office Visiton 04-27-2017 Dietary management education, guidance, and counseling (procedure) yes Invalid Interpretation Code [facility] Work Phone: [phone] Documentation of current medications (procedure) Done Invalid Interpretation Code [facility] Work Phone: [phone] Fall risk assessment No Invalid Interpretation Code [facility] Work Phone: [phone] Protein mass conc yes [facility] Work Phone: [phone] Smoking cessation education (procedure) yes Invalid Interpretation Code [facility] Work Phone: [phone] Tobacco smoking status NHIS Current every day smoker [facility] Work Phone: [phone] Tobacco use CPHS Current every day smoker Invalid Interpretation Code [facility] Work Phone: [phone] Office Visiton 02-06-2017 Documentation of current medications (procedure) Done Invalid Interpretation Code [facility] Work Phone: [phone] Fall risk assessment No Invalid Interpretation Code [facility] Work Phone: [phone] Replaced Document: Olya Villela Observationson 02-06-2017 EKG QRS axis 2 deg [facility] Work Phone: [phone] electrocardiogram interpretation 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 ABNORMAL [facility] Work Phone: [phone] P [place] 54 deg [facility] Work Phone: [phone] P wave axis, electrocardiogram 54 deg Invalid Interpretation Code [facility] Work Phone: [phone] SC Interval 160 ms [facility] Work Phone: [phone] SC interval, electrocardiogram 160 ms Invalid Interpretation Code [facility] Work Phone: [phone] Pulse (Heart Rate) 89 /min Invalid Interpretation Code [facility] Work Phone: [phone] QRS axis, electrocardiogram 2 deg Invalid Interpretation Code [facility] Work Phone: [phone] QRS Duration 96 ms [facility] Work Phone: [phone] QRS duration, electrocardiogram 96 ms Invalid Interpretation Code [facility] Work Phone: [phone] QT Interval new path ms [facility] Work Phone: [phone] QT interval, electrocardiogram new path ms Invalid Interpretation Code [facility] Work Phone: [phone] QTc [place] 396 ms [facility] Work Phone: [phone] T [place] 26 deg [facility] Work Phone: [phone] T wave axis, electrocardiogram 26 deg Invalid Interpretation Code [facility] Work Phone: [phone] Office Visiton 12-27-2016 Smoking cessation education (procedure) yes Invalid Interpretation Code [facility] Work Phone: [phone] Tobacco smoking status NHIS Current every day smoker [facility] Work Phone: [phone] Tobacco use CPHS Current every day smoker Invalid Interpretation Code [facility] Work Phone: [phone] Clinical Lists Update: Prelo line up examiner 12-22-2016 Left ventricular Ejection fraction 60 % Invalid Interpretation Code [facility] Work Phone: [phone] Clinical Lists Update: Prelo line up examiner 12-10-2016 Cholesterol [Mass/Vol] 191 mg/dL [facility] Work Phone: [phone] Cholesterol in HDL [Mass/Vol] 28 mg/dL Low [facility] Work Phone: [phone] Cholesterol in LDL [Mass/Vol] 121 mg/dL [facility] Work Phone: [phone] Lipoprotein.pre-beta [Mass/Vol] 42 mg/dL High [facility] Work Phone: [phone] Triglyceride [Mass/Vol] 211 mg/dL High [facility] Work Phone: [phone] Vital Signs Date Time Vital Sign Value Performing Clinician Rebecca roberson 02-11-2025 14:06-0400 Body mass index (BMI) [Ratio] 36.1 kg/m2 Dr. Beka Bowie MD Work Phone: [facility] 02-11-2025 13:05-0400 Heart rate 91 /min Dr. Beka Bowie MD Work Phone: [facility] 02-11-2025 13:00-0400 Diastolic blood pressure 120 mm[Hg] Dr. Beka Bowie MD Work Phone: [facility] 02-11-2025 13:00-0400 Respiratory rate 20 /min Dr. Beka Bowie MD Work Phone: [facility] 02-11-2025 13:00-0400 SaO2% (BldA) [Mass fraction] 97 % Dr. Beka Bowie MD Work Phone: [facility] 02-11-2025 13:00-0400 Systolic blood pressure 182 mm[Hg] Dr. Beka Bowie MD Work Phone: [facility] 02-11-2025 12:00-0400 Body temperature 98.2 [degF] Dr. Beka Bowie MD Work Phone: [facility] 02-11-2025 09:26-0400 Inhaled oxygen flow rate 2 L/min Dr. Beka Bowie MD Work Phone: [facility] 02-11-2025 09:17-0400 Body height 172.[address] Beka Bowie MD Work Phone: [facility] 02-11-2025 09:17-0400 Body weight 107.[address] Beka Bowie MD Work Phone: [facility] 02-11-2025 00:00-0400 Diastolic blood pressure 111 mm[Hg] Dr. Beka Bowie MD Work Phone: [facility] 02-11-2025 00:00-0400 Heart rate 101 /min Dr. Beka Bowie MD Work Phone: [facility] 02-11-2025 00:00-0400 Respiratory rate 21 /min Dr. Beka Bowie MD Work Phone: [facility] 02-11-2025 00:00-0400 SaO2% (BldA) [Mass fraction] 95 % Dr. Beka Bowie MD Work Phone: [facility] 02-11-2025 00:00-0400 Systolic blood pressure 174 mm[Hg] Dr. Beka Bowie MD Work Phone: [facility] 02-10-2025 23:33-0400 Body temperature 98.7 [degF] Dr. Beka Bowie MD Work Phone: [facility] 02-10-2025 18:13-0400 Body height 172.[address] Beka Bowie MD Work Phone: [facility] 02-10-2025 18:13-0400 Body mass index (BMI) [Ratio] 36.3 kg/m2 Dr. Beka Bowie MD Work Phone: [facility] 02-10-2025 18:13-0400 Body weight 108.[address] Beka Bowie MD Work Phone: [facility] 03-17-2024 07:29-0400 Body temperature 97.2 [degF] Rad [place] ADMINISTRATOR Work Phone: [facility] 03-17-2024 07:29-0400 Body weight 107.9 kg Rad [place] [employer] DES[employer]ER[employer]OWS [employer]S ADMINISTRATOR Work Phone: [facility] 03-17-2024 07:29-0400 Diastolic blood pressure 90 mm[Hg] Rad M[place] [employer] DES[employer]ER[employer]WINDOWS SYSTEMS ADMINISTRATOR Work Phone: [facility] 03-17-2024 07:29-0400 Heart rate 72 /min Rad [place] [employer] DESIGNER.WINDOWS SYSTEMS ADMINISTRATOR Work Phone: [facility] 03-17-2024 07:29-0400 Respiratory rate 16 /min Rad [place] [employer] DES[employer]ER.WINDOWS SYSTEMS ADMINISTRATOR Work Phone: [facility] 03-17-2024 07:29-0400 SaO2% (BldA) [Mass fraction] 98 % Rad [place] [employer] DESIGNER.WINDOWS SYSTEMS ADMINISTRATOR Work Phone: [facility] 03-17-2024 07:29-0400 Systolic blood pressure 162 mm[Hg] Rad [place] [employer] DESIGNER[employer]WINDOWS SYSTEMS ADMINISTRATOR Work Phone: [facility] 01-31-2024 16:49-0400 Body height 172.[address] Beka Bowie Work Phone: [facility] 01-31-2024 16:49-0400 Body mass index (BMI) [Ratio] 35.1 kg/m2 Dr. Beka Bowie Work Phone: [facility] 01-31-2024 16:49-0400 Body temperature 98.1 [degF] Dr. Beka Bowie Work Phone: [facility] 01-31-2024 16:49-0400 Body weight 104.[address] Beka Bowie Work Phone: [facility] 01-31-2024 16:49-0400 Diastolic blood pressure 90 mm[Hg] Dr. Beka Bowie Work Phone: [facility] 01-31-2024 16:49-0400 Heart rate 91 /min Dr. Beka Bowie Work Phone: [facility] 01-31-2024 16:49-0400 Respiratory rate 20 /min Dr. Beka Bowie Work Phone: [facility] 01-31-2024 16:49-0400 SaO2% (BldA) [Mass fraction] 95 % Dr. Beka Bowie Work Phone: [facility] 01-31-2024 16:49-0400 Systolic blood pressure 134 mm[Hg] Dr. Beka Bowie Work Phone: [facility] 01-15-2024 08:57-0500 Body mass index (BMI) [Ratio] 35.4 kg/m2 Dr. Beka Bowie Work Phone: [facility] 01-15-2024 08:57-0500 Body weight 105.[address] Beka Bowie Work Phone: [facility] 01-15-2024 08:57-0500 Diastolic blood pressure 83 mm[Hg] Dr. Beka Bowie Work Phone: [facility] 01-15-2024 08:57-0500 Heart rate 80 /min Dr. Beka Bowie Work Phone: [facility] 01-15-2024 08:57-0500 Respiratory rate 18 /min Dr. Beka Bowie Work Phone: [facility] 01-15-2024 08:57-0500 SaO2% (BldA) [Mass fraction] 94 % Dr. Beka Bowie Work Phone: [facility] 01-15-2024 08:57-0500 Systolic blood pressure 134 mm[Hg] Dr. Beka Bowie Work Phone: [facility] 12-28-2023 11:13-0500 Body height 172.[address] Beka Bowie Work Phone: [facility] 12-28-2023 11:13-0500 Body mass index (BMI) [Ratio] 33.9 kg/m2 Dr. Beka Bowie Work Phone: [facility] 12-28-2023 11:13-0500 Body temperature 96.8 [degF] Dr. Beka Bowie Work Phone: [facility] 12-28-2023 11:13-0500 Body weight 101.[address] Beka Bowie Work Phone: [facility] 12-28-2023 11:13-0500 Diastolic blood pressure 90 mm[Hg] Dr. Beka Bowie Work Phone: [facility] 12-28-2023 11:13-0500 Heart rate 75 /min Dr. Beka Bowie Work Phone: [facility] 12-28-2023 11:13-0500 Respiratory rate 18 /min Dr. Beka Bowie Work Phone: [facility] 12-28-2023 11:13-0500 SaO2% (BldA) [Mass fraction] 95 % Dr. Beka Bowie Work Phone: [facility] 12-28-2023 11:13-0500 Systolic blood pressure 176 mm[Hg] Dr. Beka Bowie Work Phone: [facility] 12-26-2023 08:00-0500 Body temperature 98.5 [degF] Dr. Beka Bowie Work Phone: [facility] 12-26-2023 08:00-0500 Diastolic blood pressure 74 mm[Hg] Dr. Beka Bowie Work Phone: [facility] 12-26-2023 08:00-0500 Heart rate 80 /min Dr. Beka Bowie Work Phone: [facility] 12-26-2023 08:00-0500 Respiratory rate 14 /min Dr. Beka Bowie Work Phone: [facility] 12-26-2023 08:00-0500 SaO2% (BldA) [Mass fraction] 96 % Dr. Beka Bowie Work Phone: [facility] 12-26-2023 08:00-0500 Systolic blood pressure 181 mm[Hg] Dr. Beka Bowie Work Phone: [facility] 12-26-2023 07:35-0500 Inhaled oxygen flow rate 2 L/min Dr. Beka Bowie Work Phone: [facility] 12-24-2023 16:28-0500 Body height 172.[address] Beka Bowie Work Phone: [facility] 12-24-2023 16:28-0500 Body mass index (BMI) [Ratio] 34.4 kg/m2 Dr. Beka Bowie Work Phone: [facility] 12-24-2023 16:28-0500 Body weight 102.[address] Beka Bowie Work Phone: [facility] 12-24-2023 15:25-0500 Body temperature 96 [degF] Dr. Beka Bowie Work Phone: [facility] 12-24-2023 15:25-0500 Diastolic blood pressure 108 mm[Hg] Dr. Beka Bowie Work Phone: [facility] 12-24-2023 15:25-0500 Heart rate 100 /min Dr. Beka Bowie Work Phone: [facility] 12-24-2023 15:25-0500 Respiratory rate 20 /min Dr. Beka Bowie Work Phone: [facility] 12-24-2023 15:25-0500 SaO2% (BldA) [Mass fraction] 96 % Dr. Beka Bowie Work Phone: [facility] 12-24-2023 15:25-0500 Systolic blood pressure 212 mm[Hg] Dr. Beka Bowie Work Phone: [facility] 12-24-2023 15:09-0500 Body mass index (BMI) [Ratio] 35.5 kg/m2 Dr. Beka Bowie Work Phone: [facility] 12-24-2023 15:09-0500 Body weight 106.[address] Beka Bowie Work Phone: [facility] 12-24-2023 12:19-0500 Body height 172.[address] Beka Bowie Work Phone: [facility] 12-06-2023 15:15-0500 Body height 172.[address] Beka Bowie Work Phone: [facility] 12-06-2023 15:15-0500 Body mass index (BMI) [Ratio] 35.4 kg/m2 Dr. Beka Bowie Work Phone: [facility] 12-06-2023 15:15-0500 Body temperature 98.3 [degF] Dr. Beka Bowie Work Phone: [facility] 12-06-2023 15:15-0500 Body weight 105.[address] Beka Bowie Work Phone: [facility] 12-06-2023 15:15-0500 Diastolic blood pressure 102 mm[Hg] Dr. Beka Bowie Work Phone: [facility] 12-06-2023 15:15-0500 Heart rate 83 /min Dr. Beka Bowie Work Phone: [facility] 12-06-2023 15:15-0500 Respiratory rate 18 /min Dr. Beka Bowie Work Phone: [facility] 12-06-2023 15:15-0500 SaO2% (BldA) [Mass fraction] 97 % Dr. Beka Bowie Work Phone: [facility] 12-06-2023 15:15-0500 Systolic blood pressure 154 mm[Hg] Dr. Beka Bowie Work Phone: [facility] 11-21-2023 10:41-0500 Diastolic blood pressure 77 mm[Hg] [facility] 11-21-2023 10:41-0500 Heart rate 71 /min [facility] 11-21-2023 10:41-0500 Respiratory rate 18 /min [facility] 11-21-2023 10:41-0500 SaO2% (BldA) [Mass fraction] 97 % [facility] 11-21-2023 10:41-0500 Systolic blood pressure 133 mm[Hg] [facility] 11-21-2023 06:38-0500 Body height 172.72 cm [facility] 11-21-2023 06:38-0500 Body mass index (BMI) [Ratio] 35.2 kg/m2 [facility] 11-21-2023 06:38-0500 Body temperature 97 [degF] [facility] 11-21-2023 06:38-0500 Body weight 104.9 kg [facility] 06-26-2022 13:25-0400 Diastolic blood pressure 92 mm[Hg] Dr. Beka Bowie Work Phone: [facility] Work Phone: 06-26-2022 13:25-0400 Heart rate 75 /min Dr. Beka Bowie Work Phone: [facility] Work Phone: 06-26-2022 13:25-0400 Respiratory rate 16 /min Dr. Beka Bowie Work Phone: [facility] Work Phone: 06-26-2022 13:25-0400 SaO2% (BldA) [Mass fraction] 95 % Dr. Beka Bowie Work Phone: [facility] Work Phone: 06-26-2022 13:25-0400 Systolic blood pressure 159 mm[Hg] Dr. Beka Bowie Work Phone: [facility] Work Phone: 06-26-2022 12:00-0400 Body temperature 98.1 [degF] Dr. Beka Bowie Work Phone: [facility] Work Phone: 06-26-2022 09:12-0400 Body height 172.[address] Beka Bowie Work Phone: [facility] Work Phone: 06-26-2022 09:12-0400 Body weight 101.[address] Beka Bowie Work Phone: [facility] Work Phone: 06-26-2022 04:53-0400 Body mass index (BMI) [Ratio] 34 kg/m2 Dr. Beka Bowie Work Phone: [facility] Work Phone: 06-26-2022 04:16-0400 Diastolic blood pressure 120 mm[Hg] Dr. Beka Bowie Work Phone: [facility] Work Phone: 06-26-2022 04:16-0400 Heart rate 89 /min Dr. Beka Bowie Work Phone: [facility] Work Phone: 06-26-2022 04:16-0400 Systolic blood pressure 198 mm[Hg] Dr. Beka Bowie Work Phone: [facility] Work Phone: 06-26-2022 04:15-0400 Body temperature 98.7 [degF] Dr. Beka Bowie Work Phone: [facility] Work Phone: 06-26-2022 04:15-0400 Respiratory rate 19 /min Dr. Beka Bowie Work Phone: [facility] Work Phone: 06-26-2022 04:15-0400 SaO2% (BldA) [Mass fraction] 91 % Dr. Beka Bowie Work Phone: [facility] Work Phone: 06-26-2022 01:03-0400 Body height 172.[address] Beka Bowie Work Phone: [facility] Work Phone: 06-26-2022 01:03-0400 Body mass index (BMI) [Ratio] 34 kg/m2 Dr. Beka Bowie Work Phone: [facility] Work Phone: 06-26-2022 01:03-0400 Body weight 101.[address] Beka Bowie Work Phone: [facility] Work Phone: 06-08-2022 16:11-0400 Body height 172.[address] Beka Bowie Work Phone: [facility] Work Phone: 06-08-2022 16:11-0400 Body mass index (BMI) [Ratio] 32.1 kg/m2 Dr. Beka Bowie Work Phone: [facility] Work Phone: 06-08-2022 16:11-0400 Body temperature 97.1 [degF] Dr. Beka Bowie Work Phone: [facility] Work Phone: 06-08-2022 16:11-0400 Body weight 95.[address] Beka Bowie Work Phone: [facility] Work Phone: 06-08-2022 16:11-0400 Diastolic blood pressure 90 mm[Hg] Dr. Beka Bowie Work Phone: [facility] Work Phone: 06-08-2022 16:11-0400 Heart rate 82 /min Dr. Beka Bowie Work Phone: [facility] Work Phone: 06-08-2022 16:11-0400 Respiratory rate 15 /min Dr. Beka Bowie Work Phone: [facility] Work Phone: 06-08-2022 16:11-0400 SaO2% (BldA) [Mass fraction] 95 % Dr. Beka Bowie Work Phone: [facility] Work Phone: 06-08-2022 16:11-0400 Systolic blood pressure 140 mm[Hg] Dr. Beka Bowie Work Phone: [facility] Work Phone: 06-05-2022 11:27-0400 Body mass index (BMI) [Ratio] 33 kg/m2 Dr. Beka Bowie Work Phone: [facility] Work Phone: 06-05-2022 11:27-0400 Body weight 98.[address] Beka Bowie Work Phone: [facility] Work Phone: 06-05-2022 11:27-0400 Diastolic blood pressure 110 mm[Hg] Dr. Beka Bowie Work Phone: [facility] Work Phone: 06-05-2022 11:27-0400 Heart rate 80 /min Dr. Beka Bowie Work Phone: [facility] Work Phone: 06-05-2022 11:27-0400 Systolic blood pressure 160 mm[Hg] Dr. Beka Bowie Work Phone: [facility] Work Phone: 04-27-2022 14:15-0400 Diastolic blood pressure 91 mm[Hg] Dr. Beka Bowie Work Phone: [facility] Work Phone: 04-27-2022 14:15-0400 Heart rate 85 /min Dr. Beka Bowie Work Phone: [facility] Work Phone: 04-27-2022 14:15-0400 Respiratory rate 16 /min Dr. Beka Bowie Work Phone: [facility] Work Phone: 04-27-2022 14:15-0400 SaO2% (BldA) [Mass fraction] 94 % Dr. Beka Bowie Work Phone: [facility] Work Phone: 04-27-2022 14:15-0400 Systolic blood pressure 159 mm[Hg] Dr. Beka Bowie Work Phone: [facility] Work Phone: 04-27-2022 13:30-0400 Diastolic blood pressure 95 mm[Hg] Dr. Beka Bowie Work Phone: [facility] Work Phone: 04-27-2022 13:30-0400 Heart rate 81 /min Dr. Beka Bowie Work Phone: [facility] Work Phone: 04-27-2022 13:30-0400 Respiratory rate 16 /min Dr. Beka Bowie Work Phone: [facility] Work Phone: 04-27-2022 13:30-0400 SaO2% (BldA) [Mass fraction] 96 % Dr. Beka Bowie Work Phone: [facility] Work Phone: 04-27-2022 13:30-0400 Systolic blood pressure 167 mm[Hg] Dr. Beka Bowie Work Phone: [facility] Work Phone: 04-27-2022 09:45-0400 Body temperature 98 [degF] Dr. Beka Bowie Work Phone: [facility] Work Phone: 04-27-2022 09:42-0400 Body height 172.[address] Beka Bowie Work Phone: [facility] Work Phone: 04-27-2022 09:42-0400 Body mass index (BMI) [Ratio] 32.1 kg/m2 Dr. Beka Bowie Work Phone: [facility] Work Phone: 04-27-2022 09:42-0400 Body weight 95.[address] Beka Bowie Work Phone: [facility] Work Phone: 04-27-2022 09:03-0400 Diastolic blood pressure 104 mm[Hg] Dr. Beka Bowie Work Phone: [facility] Work Phone: 04-27-2022 09:03-0400 Systolic blood pressure 134 mm[Hg] Dr. Beka Bowie Work Phone: [facility] Work Phone: 04-27-2022 08:49-0400 Body temperature 97.9 [degF] Dr. Beka Bowie Work Phone: [facility] Work Phone: 04-27-2022 08:49-0400 Heart rate 68 /min Dr. Beka Bowie Work Phone: [facility] Work Phone: 04-27-2022 08:49-0400 Respiratory rate 16 /min Dr. Beka Bowie Work Phone: [facility] Work Phone: 04-27-2022 08:49-0400 SaO2% (BldA) [Mass fraction] 94 % Dr. Beka Bowie Work Phone: [facility] Work Phone: 04-27-2022 07:11-0400 Body height 172.[address] Beka Bowie Work Phone: [facility] Work Phone: 04-27-2022 07:11-0400 Body mass index (BMI) [Ratio] 32.8 kg/m2 Dr. Beka Bowie Work Phone: [facility] Work Phone: 04-27-2022 07:11-0400 Body weight 97.[address] Beka Bowie Work Phone: [facility] Work Phone: 03-30-2022 15:33-0400 Body mass index (BMI) [Ratio] 32.5 kg/m2 Dr. Beka Bowie Work Phone: [facility] Work Phone: 03-30-2022 15:33-0400 Body temperature 96.6 [degF] Dr. Beka Bowie Work Phone: [facility] Work Phone: 03-30-2022 15:33-0400 Body weight 97.[address] Beka Bowie Work Phone: [facility] Work Phone: 03-30-2022 15:33-0400 Diastolic blood pressure 84 mm[Hg] Dr. Beka Bowie Work Phone: [facility] Work Phone: 03-30-2022 15:33-0400 Heart rate 75 /min Dr. Beka Bowie Work Phone: [facility] Work Phone: 03-30-2022 15:33-0400 Respiratory rate 16 /min Dr. Beka Bowie Work Phone: [facility] Work Phone: 03-30-2022 15:33-0400 SaO2% (BldA) [Mass fraction] 95 % Dr. Beka Bowie Work Phone: [facility] Work Phone: 03-30-2022 15:33-0400 Systolic blood pressure 130 mm[Hg] Dr. Beka Bowie Work Phone: [facility] Work Phone: 03-30-2022 15:33-0400 Body mass index (BMI) [Ratio] 32.5 kg/m2 Dr. Beka Bowie Work Phone: [facility] Work Phone: 03-30-2022 15:33-0400 Body temperature 96.6 [degF] Dr. Beka Bowie Work Phone: [facility] Work Phone: 03-30-2022 15:33-0400 Body weight 97.[address] Beka Bowie Work Phone: [facility] Work Phone: 03-30-2022 15:33-0400 Diastolic blood pressure 84 mm[Hg] Dr. Beka Bowie Work Phone: [facility] Work Phone: 03-30-2022 15:33-0400 Heart rate 75 /min Dr. Beka Bowie Work Phone: [facility] Work Phone: 03-30-2022 15:33-0400 Respiratory rate 16 /min Dr. Beka Bowie Work Phone: [facility] Work Phone: 03-30-2022 15:33-0400 SaO2% (BldA) [Mass fraction] 95 % Dr. Beka Bowie Work Phone: [facility] Work Phone: 03-30-2022 15:33-0400 Systolic blood pressure 130 mm[Hg] Dr. Beka Bowie Work Phone: [facility] Work Phone: 02-15-2022 16:08-0400 Body mass index (BMI) [Ratio] 32.9 kg/m2 Dr. Beka Bowie Work Phone: [facility] Work Phone: 02-15-2022 16:08-0400 Body temperature 98.2 [degF] Dr. Beka Bowie Work Phone: [facility] Work Phone: 02-15-2022 16:08-0400 Body weight 98.[address] Beka Bowie Work Phone: [facility] Work Phone: 02-15-2022 16:08-0400 Diastolic blood pressure 82 mm[Hg] Dr. Beka Bowie Work Phone: [facility] Work Phone: 02-15-2022 16:08-0400 Heart rate 79 /min Dr. Beka Bowie Work Phone: [facility] Work Phone: 02-15-2022 16:08-0400 Respiratory rate 18 /min Dr. Beka Bowie Work Phone: [facility] Work Phone: 02-15-2022 16:08-0400 SaO2% (BldA) [Mass fraction] 96 % Dr. Beka Bowie Work Phone: [facility] Work Phone: 02-15-2022 16:08-0400 Systolic blood pressure 162 mm[Hg] Dr. Beka Bowie Work Phone: [facility] Work Phone: 01-13-2022 14:23-0500 Body mass index (BMI) [Ratio] 31.6 kg/m2 Dr. Beka Bowie Work Phone: [facility] Work Phone: 01-13-2022 14:18-0500 Body weight 94.[address] Beka Bowie Work Phone: [facility] Work Phone: 01-13-2022 14:18-0500 Diastolic blood pressure 90 mm[Hg] Dr. Beka Bowie Work Phone: [facility] Work Phone: 01-13-2022 14:18-0500 Heart rate 86 /min Dr. Beka Bowie Work Phone: [facility] Work Phone: 01-13-2022 14:18-0500 Respiratory rate 18 /min Dr. Beka Bowie Work Phone: [facility] Work Phone: 01-13-2022 14:18-0500 SaO2% (BldA) [Mass fraction] 95 % Dr. Beka Bowie Work Phone: [facility] Work Phone: 01-13-2022 14:18-0500 Systolic blood pressure 158 mm[Hg] Dr. Beka Bowie Work Phone: [facility] Work Phone: 07-17-2017 10:05-0400 BMI (Body Mass Index) 31.81 kg/m2 MD [facility] Work Phone: 07-17-2017 10:05-0400 BP Diastolic 100 mm[Hg] Eric Flores MD [facility] Work Phone: 07-17-2017 10:05-0400 BP Systolic 158 mm[Hg] Eric Flores MD [facility] Work Phone: 07-17-2017 10:05-0400 Height 172.72 cm Eric Flores MD [facility] Work Phone: 07-17-2017 10:05-0400 Pulse (Heart Rate) 72 /min Eric Flores MD [facility] Work Phone: 07-17-2017 10:05-0400 Respiratory Rate 20 /min Eric Flores MD [facility] Work Phone: 07-17-2017 10:05-0400 Weight 94.92 kg Eric Flores MD [facility] Work Phone: 04-27-2017 09:15-0400 BMI (Body Mass Index) 34.97 kg/m2 MD [facility] Work Phone: 04-27-2017 09:15-0400 BP Diastolic 104 mm[Hg] MD [facility] Work Phone: 04-27-2017 09:15-0400 BP Systolic 178 mm[Hg] Eric Flores MD [facility] Work Phone: 04-27-2017 09:15-0400 Height [...] Pulse (Heart Rate) 88 /min Harumi DeFinis [facility] Work Phone: 02-06-2017 14:17-0400 Pulse Oximetry 98 % Harumi DeFinis [facility] Work Phone: 02-06-2017 14:17-0400 Respiratory Rate 24 /min Harumi DeFinis [facility] Work Phone: 02-06-2017 14:17-0400 Weight 102.6 kg Eric Flores MD [facility] Work Phone: 12-27-2016 09:07-0500 BSA (Body Surface Area) 2.12 m2 Harumi DeFinallan [facility] Work Phone: Encounters Encounter Date Encounter Type Care Provider Facility Start: 02-19-2025 ambulatory Beka Bowie Bayi ty:[facility] Start: 02-11-2025 ambulatory Eric Flores Facility:[facility] Start: 02-11-2025 Non-patient / Non-visit [facility]. Mtz [facility] Start: 02-11-2025 ambulatory Mitchell Deras Facili ty:[facility] Start: 02-11-2025 Non-patient / Non-visit Dr. Brennon shen [facility] Work Phone: Start: 02-11-2025 ambulatory Federico [place] Facility:[facility] Start: 02-11-2025 End: 02-11-2025 Evaluation and management of inpatient Dr. Mitchell Deras DO -Intensive Care Unit Work Phone: Start: 10-12-2024 End: 10-12-2024 ambulatory [place] Riddletika Facility:[facility] Start: 10-11-2024 ambulatory Mitchell Diazi ty:[facility] Start: 10-11-2024 End: 10-13-2024 Evaluation and management of inpatient Mitchell Deras Facility:[facility] Start: 09-25-2024 End: 09-25-2024 Emergency department patient visit [facility] Venkateshtika Facility:[facility] Start: 04-07-2024 ambulatory Beka Venkateshtika Bayi ty:[facility] Start: 03-17-2024 End: 03-17-2024 ambulatory Facility:[facility] Start: 03-17-2024 End: 03-17-2024 Patient encounter procedure Rad Darelljosé [employer] ADMINISTRATOR Work Phone: [facility] Comment on above: Bacterial conjunctiv itis (Primary Dx) Start: 02-08-2024 End: 02-08-[address] Beka Bowie Work Phone: [facility] Work Phone: Start: 02-08-2024 End: 02-08-[address] Beka Bowie [facility] [facility] Work Phone: Start: 01-31-2024 End: 01-31-[address] Beka Bowie Work Phone: [facility] Work Phone: Start: 01-15-2024 End: 01-15-[address] Beka Bowie Work Phone: [facility] Work Phone: Start: 12-31-2023 End: 12-31-[address] Beka Bowie Work Phone: [facility] Work Phone: Start: 12-31-2023 End: 12-31-[address] Beka Bowie Work Phone: [facility]-Laboratory Work Phone: Start: 12-28-2023 End: 12-28-[address] Beka Bowie Work Phone: [facility] Work Phone: Start: 12-26-2023 Non-patient / Non-visit Dr. Mukul Bowie Work Phone: [facility] Start: 12-25-2023 Non-patient / Non-visit Dr. Mukul Bowie Work Phone: [facility] Work Phone: Start: 12-25-2023 Non-patient / Non-visit Dr. Mukul Bowie Work Phone: [facility] Start: 12-24-2023 End: 12-26-2023 Evaluation and management of inpatient Dr. Beka Bowie Work Phone: [facility]-Progressive Care Unit Work Phone: Start: 12-24-2023 Non-patient / Non-visit Dr. Mukul Bowie Work Phone: [facility] Work Phone: Start: 12-12-2023 Non-patient / Non-visit Dr. Mukul Bowie Work Phone: [facility] Work Phone: Start: 12-11-2023 Non-patient / Non-visit Dr. Mukul Bowie Work Phone: [facility] Start: 12-11-2023 End: 12-11-[address] Beka Bowie Work Phone: [facility] Work Phone: Start: 12-11-2023 End: 12-11-[address] Beka Bowie Work Phone[facility] Work Phone: Start: 12-06-2023 End: 12-06-[address] Beka Bowie Work Phone: [facility] Work Phone: Start: 11-21-2023 End: 11-21-2023 Emergency department [facility] Work Phone: Start: 06-26-2022 Non-patient / Non-visit Dr. Mukul Bowie Work Phone: [facility] Start: 06-26-2022 Non-patient / Non-visit Dr. Mukul Bowie Work Phone: [facility] Start: 06-26-2022 End: 06-26-2022 Evaluation and management of inpatient Dr. Beka Bowie Work Phone: [facility]-Intensive Care Unit Start: 06-15-2022 End: 06-15-[address] Beka Bowie Work Phone: [facility]-Radiology, [facility] Start: 06-08-2022 End: 06-08-[address] Beka Bowie Work Phone: [facility] Internal Medicine Start: 06-05-2022 End: 06-05-[address] Beka Bowie Work Phone: [facility] Start: 04-27-2022 Non-patient / Non-visit Dr. Mukul Bowie Work Phone: [facility] In[facility] Phys[facility] Start: 04-27-2022 End: 04-27-2022 Evaluation and management of inpatient Dr. Beka Bowie Work Phone: [facility] Start: 04-27-2022 Evaluation and manag ement of inpatient Dr. Beka Bowie Work Phone: [facility] Start: 03-30-2022 End: 03-30-[address] Beka Bowie Work Phone: [facility] Endocrinology Start: 02-15-2022 End: 02-15-[address] Beka Bowie Work Phone: [facility] Internal Medicine Start: 01-18-2022 End: 01-18-[address] Beka Bowie Work Phone: [facility]-Laboratory, Specimen Start: 01-17-2022 Non-patient / Non-visit Dr. Mukul Bowie Work Phone: [facility] Start: 01-17-2022 End: 01-17-[address] Beka Bowie Work Phone: [facility]-Cardiovascular Services Start: 01-13-2022 End: 01-13-[address] Beka Bowie Work Phone: [facility] Procedures Date Procedure Procedure Detail [...] Phone: Start: 12-25-2023 Plain chest X-ray Dr. Tiak Bowie Work Phone: Start: 12-25-2023 History of [...] x 16 mm Synergy MR Stent 03/18/2020; [id number] w/ 3.0 x 12 mm Synergy Stent and WAN-Prox RCA w/ 3.5 x 20 MM Synergy Stent 11/22/2020; WAN mid LAD w/3.0 X 24 MM Synergy MR Stent 11/18/2021, WAN Prox LAD using Sandy Gentry 3.0x12 mm and WAN Prox OM1 using Flaco Gentry 2.5x18 mm 12/25/23 Start: 12-24-2023 Plain chest [...] Activity Detail Author Start: 02-11-2025 Patient discharge [facility] Start: 02-11-2025 Vitamin D, 1,25-dihydroxy measurement [facility] Start: 02-11-2025 Following clinical pathway protocol [facility] Start: 02-11-2025 Aspiration precautions [facility] Start: 02-11-2025 Cardiac monitoring [facility] Start: 02-11-2025 Catheterization of vein [facility] Start: 02-11-2025 Consultation [facility] Start: 02-11-2025 Continuous pulse oximetry [facility] Start: 02-11-2025 Elevation of head of bed [facility] Start: 02-11-2025 Exercises [facility] Start: 02-11-2025 Notification of physician [facility] Start: 02-11-2025 Oxygen therapy [facility] Start: 02-11-2025 Patient referral to dietitian [facility] Start: 02-11-2025 Referral to occupational therapist [facility] Start: 02-11-2025 Referral to service [facility] Start: 02-11-2025 Speech therapy assessment [facility] Start: 02-11-2025 Telemedicine consultation with patient [facility] Start: 02-11-2025 Tobacco use cessation education [facility] Start: 02-11-2025 End: 02-11-2025 [facility] Start: 02-11-2025 Vital signs measurements [facility] Start: 02-11-2025 MRI of brain with contrast Brain WITH Contrast [facility] Start: 02-11-2025 Thyroid stimulating hormone measurement [facility] Start: 02-11-2025 Vitamin D, 1,25-dihydroxy measurement [facility] Start: 02-11-2025 Admission procedure [facility] Start: 02-11-2025 Inhalation therapy procedure [facility] Start: 02-10-2025 [facility] Start: 07-20-2024 Influenza vaccination Influenza Vaccine (Season Ended) [facility] Start: 12-28-2023 Electrocardiographic procedure [facility] Start: 12-27-2023 Electrocardiographic procedure [facility] Start: 12-26-2023 Electrocardiographic procedure [facility] Start: 12-26-2023 Patient discharge [facility] Start: 12-26-2023 [facility] Start: 12-25-2023 Care planning and problem solving actions [facility] Start: 12-25-2023 Care planning and problem solving actions [facility] Start: 12-25-2023 Ambulation without limitation [facility] Start: 12-25-2023 Pulse taking [facility] Start: 12-25-2023 Cardiac monitoring [facility] Start: 12-25-2023 Cardiac rehabilitation - phase 1 [facility] Start: 12-25-2023 Cardiac rehabilitation - phase 2 [facility] Start: 12-25-2023 Notification of physician [facility] Start: 12-25-2023 Oxygen therapy [facility] Start: 12-25-2023 Patient discharge [facility] Start: 12-25-2023 Systemic arterial pressure monitoring [facility] Start: 12-25-2023 Taking patient vital signs [facility] Start: 12-25-2023 Vascular disease risk assessment [facility] Start: 12-25-2023 Vital signs measurements [facility] Start: 12-25-2023 End: 12-25-2023 [facility] Start: 12-25-2023 Patient referral [facility] Work Phone: Start: 12-25-2023 Continuous pulse oximetry [facility] Start: 12-25-2023 Preoperative care [facility] Start: 12-25-2023 Catheterization of vein [facility] Start: 12-25-2023 Medication not administered [facility] Start: 12-25-2023 Notification of physician [facility] Start: 12-25-2023 [facility] Start: 12-25-2023 Thyroid stimulating hormone measurement [facility] Start: 12-25-2023 [facility] Start: 12-24-2023 Following clinical pathway protocol [facility] Start: 12-24-2023 Care planning and problem solving actions [facility] Start: 12-24-2023 Assessment of risk of venous thromboembolism [facility] Start: 12-24-2023 Care regimes management [facility] Start: 12-24-2023 Electrocardiographic procedure [facility] Start: 12-24-2023 Inhalation therapy procedure [facility] Start: 12-24-2023 Insertion of catheter into peripheral vein [facility] Start: 12-24-2023 Measuring intake and output [facility] Start: 12-24-2023 Notification of physician [facility] Start: 12-24-2023 Oxygen therapy [facility] Start: 12-24-2023 Providing care according to standard [facility] Start: 12-24-2023 Provision of activity privileges [facility] Start: 12-24-2023 Referral to fire captain [facility] Start: 12-24-2023 Tobacco use cessation education [facility] Start: 12-24-2023 [facility] Start: 12-24-2023 Verification routine [facility] Start: 12-24-2023 Admission procedure [facility] Start: 11-21-2023 [facility] Start: 11-21-2023 End: 11-21-2023 [facility] Start: 11-19-2023 Behavioral Health Screening Behavioral Health Screening [facility] Start: 07-20-2023 Covid-19 Vaccine () Covid-19 Vaccine () [facility] Start: 06-26-2022 Patient discharge [facility] Work Phone: Start: 06-26-2022 Partial thromboplastin time, activated [facility] Work Phone: Start: 06-26-2022 [facility] Work Phone: Start: 06-26-2022 Following clinical pathway protocol [facility] Work Phone: Start: 06-26-2022 Assessment of risk of venous thromboembolism [facility] Work Phone: Start: 06-26-2022 Care regimes management [facility] Work Phone: Start: 06-26-2022 Catheterization of vein [facility] Work Phone: Start: 06-26-2022 Elevation of head of bed [facility] Work Phone: Start: 06-26-2022 Inhalation therapy procedure [facility] Work Phone: Start: 06-26-2022 Insertion of catheter into peripheral vein [facility] Work Phone: Start: 06-26-2022 Measuring intake and output [facility] Work Phone: Start: 06-26-2022 Providing care according to standard [facility] Work Phone: Start: 06-26-2022 Vital signs measurements [facility] Work Phone: Start: 06-26-2022 [facility] Work Phone: Start: 06-26-2022 Admission procedure [facility] Work Phone: Start: 04-27-2022 Lipid panel Lipid Screening [facility] Start: 04-27-2022 End: 04-27-2022 Patient discharge [facility] Work Phone: Start: 04-27-2022 Cardiac monitoring [facility] Work Phone: Start: 04-27-2022 Cardiac rehabilitation - phase 1 [facility] Work Phone: Start: 04-27-2022 Notification of physician [facility] Work Phone: Start: 04-27-2022 Oxygen therapy [facility] Work Phone: Start: 04-27-2022 Systemic arterial pressure monitoring [facility] Work Phone: Start: 04-27-2022 Taking patient vital signs [facility] Work Phone: Start: 04-27-2022 Vascular disease risk assessment [facility] Work Phone: Start: 04-27-2022 Vital signs measurements [facility] Work Phone: Start: 04-27-2022 [facility] Work Phone: Start: 04-27-2022 Assessment of risk of venous thromboembolism [facility] Work Phone: Start: 04-27-2022 Insertion of catheter into peripheral vein [facility] Work Phone: Start: 04-27-2022 Measuring intake and output [facility] Work Phone: Start: 04-27-2022 Providing care according to standard [facility] Work Phone: Start: 04-27-2022 Provision of activity privileges [facility] Work Phone: Start: 04-27-2022 Tobacco use cessation education [facility] Work Phone: Start: 04-27-2022 [facility] Work Phone: Start: 04-27-2022 End: 04-27-2022 Referral to fire captain [facility] Work Phone: Start: 04-27-2022 Admission procedure [facility] Work Phone: Start: 04-27-2022 Following clinical pathway protocol [facility] Work Phone: Start: 2021 Shingrix Vaccine (1 of 2) Shingrix Vaccine (1 of 2) [facility] Start: 11-09-2017 End: 11-09-2017 Appointment Appointment [facility] Work Phone: Start: 10-29-2017 End: 05-03-2017 *Hepatic Function Panel *Hepatic Function Panel [facility] Work Phone: Start: 10-29-2017 End: 05-03-2017 Lipid panel [AGGREGATE] *Lipid Profile CC PCP [facility] Work Phone: Start: 07-17-2017 End: 07-17-2017 Appointment Appointment [email or web address] Phone: Start: 07-13-2017 End: 07-13-2017 Appointment Appointment [facility] Work Phone: Start: 04-27-2017 End: 04-27-2017 Appointment Appointment [facility] Work Phone: Start: 04-27-2017 End: 04-27-2017 *BMP *BMP [facility] Work Phone: Start: 04-27-2017 End: 04-27-2017 *Hepatic Function Panel *Hepatic Function Panel [facility] Phone: Start: 04-27-2017 End: 04-27-2017 Follow Up Appt 6 months Follow Up Appt 6 months [facility] Work Phone: Start: 04-27-2017 End: 04-27-2017 Lipid panel [AGGREGATE] *Lipid Profile CC PCP [facility] Work Phone: Start: 04-27-2017 End: 04-27-2017 MMM MMM [facility] Work Phone: Start: 02-06-2017 End: 02-06-2017 Electrocardiogram, complete EKG (In office) [facility] Work Phone: Start: 02-06-2017 End: 02-06-2017 Follow Up Appt 3 months Follow Up Appt 3 months [facility] Work Phone: Start: 02-06-2017 End: 02-06-2017 MMM MMM [facility] Work Phone: Start: 12-27-2016 End: 12-27-2016 *Hepatic Function Panel *Hepatic Function Panel [facility] Work Phone: Start: 12-27-2016 End: 12-27-2016 Follow Up Appt 4 months Follow Up Appt 4 months [facility] Work Phone: Start: 12-27-2016 End: 12-27-2016 Lipid 1996 panel *Lipid Profile CC PCP [facility] Work Phone: Start: 12-27-2016 End: 12-27-2016 MMM MMM [facility] Work Phone: Start: 2016 Diabetes Screening Diabetes Screening [facility] Start: 2016 Screening for malignant neoplasm of colon [facility] Start: 1990 Hepatitis B Vaccine (1 of 3 - 19+ 3-dose series) Hepatitis B Vaccine (1 of 3 - 19+ 3-dose series) [facility] Start: 1990 Urine microalbumin profile DTaP,Tdap,Td Vaccine (1 - Tdap) [facility] Start: 1989 Annual PCP Team Chronic Disease Visit Annual PCP Team Chronic Disease Visit [facility] Start: 1989 BP Controlled (<130/80) BP Controlled (<130/80) [facility] Start: 1989 Hepatitis C screening Hepatitis C Screening [facility] Start: 1989 HIV screening HIV Screening [facility] Start: 1977 Pneumococcal vaccination Pneumococcal Vaccine (1 of 2 - PCV) [facility] Alanine aminotransfe rase [Enzymatic activity/volume] in Serum or Plasma [facility] Albumin [Mass/volume ] in Serum or Plasma [facility] Alkaline phosphatase [Enzymatic activity/volume] in Serum or Plasma [facility] Amphetamine [Mass/vo lume] in Urine [facility] Amphetamines [Presen ce] in Urine by Screen method >1000 ng/mL [facility] Anion gap measurement [facility] Aspartate aminotrans ferase [Enzymatic activity/volume] in Serum or Plasma [facility] Benzodiazepine measu rement, urine [facility] Benzodiazepine measu rement, urine [facility] Bilirubin, total measurement [facility] BUN/Creatinine ratio [facility] Calcium [Mass/volume ] in Serum or Plasma [facility] Carbon dioxide, tota l [Moles/volume] in Serum or Plasma [facility] Cardiac event recording [facility] Chloride [Moles/volu me] in Serum or Plasma [facility] Cholesterol [Mass/vo lume] in Serum or Plasma [facility] Cholesterol [Mass/vo lume] in Serum or Plasma [facility] Cholesterol in HDL [Mass/volume] in Serum or Plasma [facility] Cholesterol in HDL [Mass/volume] in Serum or Plasma [facility] Cholesterol in LDL [Mass/volume] in Serum or Plasma [facility] Cobalamin (Vitamin B 12) [Mass/volume] in Serum or Plasma [facility] Cocaine measurement, urine [facility] Cocaine measurement, urine [facility] Creatinine [Moles/vo lume] in Serum or Plasma [facility] Erythrocyte mean cor puscular volume determination [facility] Ethanol [Mass/volume ] in Serum or Plasma [facility] fentaNYL [Presence] in Urine by Screen method [facility] Folate [Moles/volume ] in Serum or Plasma [facility] Glucose [Mass/volume ] in Serum or Plasma [facility] Hematocrit [Volume F raction] of Blood [facility] Hemoglobin [Mass/vol ume] in Blood [facility] Hemoglobin A1c/Hemoglobin.total in Blood [facility] Hemoglobin A1c/Hemoglobin.total in Blood [facility] Leukocytes [#/volume] in Blood [facility] Low density lipoprot ein cholesterol measurement [facility] Magnesium [Mass/volu me] in Serum or Plasma [facility] Mean corpuscular hem oglobin concentration determination [facility] Mean corpuscular hem oglobin determination [facility] Measurement of 3,4-methylenedioxymethamphetam ine in urine [facility] Measurement of renal function [facility] Methadone measurement, urine [facility] Methadone measurement, urine [facility] Neutrophil count [facility] Neutrophil percent differential count [facility] Partial thromboplast in time, activated [facility] Work Phone: Patient Education [facility] Work Phone: Patient referral [facility] Work Phone: pH of Urine [facility] Phencyclidine [Prese nce] in Urine [facility] Phencyclidine [Prese nce] in Urine [facility] Platelets [#/volume] in Blood [facility] Potassium [Moles/vol ume] in Serum or Plasma [facility] Red blood cell count [facility] Red cell distributio n width determination [facility] Sodium [Moles/volume ] in Serum or Plasma [facility] Total cholesterol:HD L ratio measurement [facility] Total protein measurement [facility] Triglycerides measurement [facility] Triglycerides measurement [facility] Urea nitrogen [Mass/ volume] in Serum or Plasma [facility] Urine barbiturate measurement [facility] Urine cannabinoid measurement [facility] Urine cannabinoid measurement [facility] Urine opiate measurement [facility] Urine opiate measurement [facility] Vitamin D, 25-hydrox y measurement [facility] VLDL cholesterol measurement [facility] VLDL cholesterol measurement [facility] Payers Date Payer Category Payer Self-pay [id number] 2019 Unknown [id number] 2019 Unknown MMO MMO [employer] PPO [id number] 2019-Present [phone] [address] [place] [address] PPO [id number] Medicaid MEDICAID [id number] Private Health Insurance [facility] [id number] Unknown [id number] 62 Unknown [id number] 62 Unknown [id number] 62 Unknown [id number] 62 Unknown [id number] 62 Unknown [id number] 62 Unknown [id number] 62 Unknown [id number] 62 Unknown [id number] 62 Unknown [id number] 62 Unknown [id number] 62 Unknown [id number] 62 Unknown [id number] 62 Unknown [id number] 62 Unknown [id number] 62 Social History Date Type Detail Facility Start: 04-27-2022 End: 01-31-2024 Tobacco smoking status NHIS Unknown if ever smoked [facility] Start: 12-31-2020 Rare [facility] Start: 12-31-2020 None [facility] Start: 01-21-2021 Spouse/ Signif icant Other [facility] Start: 01-21-2021 Cigarettes [facility] Start: 1970 Sex Assigned At Male [facility] Start: 03-17-2024 End: 02-11-2025 Tobacco smoking status NHIS Smokes tobacco daily [facility] Start: 03-17-2024 Tobacco use and exposure Smokeless tobacco non-user [facility] Start: 03-17-2024 Alcohol intake Not Asked [facility] Start: 10-27-2020 End: 03-17-2024 History of Social function [facility] Start: 10-27-2020 End: 03-17-2024 Tobacco use panel [facility] National Score (1-100), lower number is lower risk Not on file [facility] Start: 1970 Sex Assigned At Not on file [facility] Start: 02-11-2025 End: 02-11-2025 Sex Male (finding) [facility] Medical Equipment Procedure Code Equipment Code Equipment Origin al Text Equipment Identifier Dates ([id number]) Drug-eluting coronary artery stent, bioabsorbable-polyme r-coated ()[id number] FDA Start: 11-18-2021 Pen Needle, Diab etic (Bd Ultra-Fine Tomasa Pen Needle) 32 gauge x 5/32 needle Start: 05-27-2021 Drug-eluting coronary artery stent, irl-cmuqxihmyshbp-hk lymer-coated ()[id number] FDA Start: 12-25-2023 Drug-eluting coronary artery stent, dfk-nfwpkdjkhbcnr-jo lymer-coated ()[id number] FDA Start: 12-25-2023 Goals Date Patient Goal Desired Activity /State Functional Status Date Assessment Result Facility 02-11-2025 Functional status Chair [facility] Work Phone: 12-26-2023 Functional status [facility] Work Phone: 06-26-2022 Functional status Chair [facility] Work Phone: 04-27-2022 Functional status Ambulates [facility] Work Phone: Mental Status Date Assessment Result Facility 02-11-2025 Cognitive function Voice/Name [facility] Work Phone: 02-10-2025 Cognitive function Appropriate;Cooperativ e [facility] Work Phone: 12-26-2023 Cognitive function Voice/Name [facility] Work Phone: 12-24-2023 [facility] function [facility] Work Phone: 11-21-2023 Cognitive function [facility]Name [facility] Work Phone: 06-26-2022 Cognitive function [facility]Name [facility] Work Phone: 06-26-2022 Cognitive function [facility]Name [facility] Work Phone: 04-27-2022 Cognitive function Voice[facility]Name [facility] Work Phone: 04-27-2022 Cognitive function Voice/Name [facility] Work Phone: Clinical Notes 11-21-2023 to 02-11-2025 Note Date & Type Note Facility 02-11-2025 Discharge summary [facility] 02-11-2025 Note [facility] Medical Records Department [address] [place] [address] Discharge Summary 02/11/25 1421 MR#: [id number] Acct: [id number] Name: LATONYA ELDER Rep #: [id number] : 1970 54 From: Brennon Juarez DO PCP: Dr. 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 [facility] 02-11-2025 Progress note [facility] 02-11-2025 Progress note Note Date/Time February 11, 2025 2:21pm [facility] Medical Records Department [address] [place] [address] Progress Note - Hospitalist 02/11/25 0656 MR#: [id number] Acct: [id number] Name: LATONYA ELDER Rep #:[id number] : 1970 54 From: Brennon Juarez DO [...] % (Auto) 61.8, Lymph % (Auto) 25.5, [place] % (Auto) 9.2, Eos % (Auto) 2.4, [...] are new since prior examination. Reading Location: [id number] Brain CT 02/10/25 18:31 IMPRESSION: 1.9 by [...] 8:00 pm with readback verification. Reading Location: [facility] Head/Neck CTA 02/10/25 18:31 IMPRESSION: 1. Large [...] at 8:50 pm on 02/10/25. Reading Location: [facility] Physical Exam Const alert and no apparent [...] note (formal note not yet available in [facility]) who advised to give ASA and clopidogrel [...] presentation of CVA, can resume home medications: [id number], carvedilol 25 BID, clonidine 0.1 BID, furosemide 60 daily, lisinopril 20 BID, isosorbide 60 BID Add PRN hydralazine Continue previous home medications. 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 then led to a [...] Cosigner Signature (if applicable): CC: ~ Signed [facility] Work Phone: 1(502) 231-628503-26-2025 History and physical note Author Mitchell Lucero [facility] Note Date/Time February 11, 2025 6:4 2am [facility] Medical Records Department [address] [place] [address] H&P Exam - Hospitalist 02/10/25 2311 MR#: [id number] Acct: [id number] Name: LATONYA ELDER Rep #:[id number] : 1970 54 From: Mitchell Marr DO [...] troponin and Respiratory Insufficiency who presents to [facility] ER complaining of who presents to [facility] ER complaining of slurred speech and brain fog since Saturday, February 08, 2025. Mr. Elder and his significant other reported that his symptoms have been zvlaaf-kpo-igvtgk for the past several days and since [...] is expected to extend beyond 2 midnights. [facility] Medical History History of DVT (deep vein [...] elevation myocardial infarction (NSTEMI) (11/22/20) Atherosclerosis of miami coronary artery of miami heart without angina pectoris Non-ST elevation IN (NSTEMI) Home Medications ?Medication ?Instructions ?Recorded ?Last [...] % (Auto) 61.8, Lymph % (Auto) 25.5, [place] % (Auto) 9.2, Eos % (Auto) 2.4, [...] are new since prior examination. Reading Location: [facility] Brain CT 02/10/25 18:31 IMPRESSION: 1.9 by [...] 8:00 pm with readback verification. Reading Location: [facility] Head/Neck CTA 02/10/25 18:31 IMPRESSION: 1. Large [...] at 8:50 pm on 02/10/25. Reading Location: [facility] Assessment & Plan Assessment/Plan (1) Abnormal computed [...] definitive treatment of this issue given his khnozq-tyf-innsyf slurred speech, brain fog and headache. If [...] 75 minutes. Charges/Coding Visit Charges Inpatient E&M: 41367 Init Hosp L3 02/11/25 0642 <Electronically signed by Mitchell Deras DO> Cosigner Signature (if applicable): CC: Dr. Mitchell Deras DO; Dr. Beka Bowie MD~ Signed [facility] Work Phone: 1(242) 380-530703-26-2025 History and physical note [facility] Medical Records Department [address] [place] [address] H&P Exam - Hospitalist 02/10/25 2311 MR#: [id number] Acct: [id number] Name: LATONYA ELDER Rep #:[id number] : 1970 54 From: Mitchell Marr DO [...] troponin and Respiratory Insufficiency who presents to [facility] ER complaining of who presents to [facility] ER complaining of slurred speech and brain fog since Saturday, February 08, 2025. Mr. Elder and his significant other reported that his symptoms have been dnfmbt-qsr-nmjrob for the past several days and since [...] is expected to extend beyond 2 midnights. [facility] Medical History History of DVT (deep vein [...] elevation myocardial infarction (NSTEMI) (11/22/20) Atherosclerosis of miami coronary artery of miami heart without angina pectoris Non-ST elevation IN (NSTEMI) Home Medications ?Medication ?Instructions ?Recorded ?Last [...] % (Auto) 61.8, Lymph % (Auto) 25.5, [place] % (Auto) 9.2, Eos % (Auto) 2.4, [...] are new since prior examination. Reading Location: [facility] Brain CT 02/10/25 18:31 IMPRESSION: 1.9 by [...] 8:00 pm with readback verification. Reading Location: [facility] Head/Neck CTA 02/10/25 18:31 IMPRESSION: 1. Large [...] at 8:50 pm on 02/10/25. Reading Location: [facility] Assessment & Plan Assessment/Plan (1) Abnormal computed [...] definitive treatment of this issue given his fybaix-dnr-nlsaqo slurred speech, brain fog and headache. If [...] 75 minutes. Charges/Coding Visit Charges Inpatient E&M: 09855 Init Hosp L3 02/11/25 0642 Cosigner Signature (if applicable): CC: Dr. Mitchell Deras DO; Dr. Beka Bowie MD~ Signed [facility]03-26-2025 Evaluation note* Diagnosis Onset Date [...] 12:04am COPD exacerbation chronic January 182024 12:04am [facility] Work Phone: 1(320) 446-201903-26-2025 Discharge summary Author Jasbir [facility] Note Date/Time February 10, 2025 11: 30pm [facility] Medical Records Department [address] [place] [address] Emergency Department Summary 02/10/25 MR#: [id number] Acct: [id number] Name: LATONYA ELDER Rep #:[id number] : 1970 54 From: Jasbir Curry DO [...] his inhalers and other medications as prescribed [facility] Medical History History of DVT (deep vein [...] elevation myocardial infarction (NSTEMI) (11/22/20) Atherosclerosis of miami coronary artery of miami heart without angina pectoris Non-ST elevation IN (NSTEMI) Home Medications ?Medication ?Instructions ?Recorded ?Last [...] Patient following commands that he was at [facility] year [id number]. Patient completed finger-nose testing bilaterally for any [...] criteria. Discussed the case with neurology/neurosurgery at [facility] Dr. Barragan who reviewed everything and states [...] % (Auto) 61.8 Lymph % (Auto) 25.5 [place] % (Auto) 9.2 Eos % (Auto) 2.4 [...] (Auto) Neut % (Auto) Lymph % (Auto) [place] % (Auto) Eos % (Auto) Baso % [...] are new since prior examination. Reading Location: [facility] Brain CT 02/10/25 18:31 IMPRESSION: 1.9 by [...] 8:00 pm with readback verification. Reading Location: [facility] Head/Neck CTA 02/10/25 18:31 IMPRESSION: 1. Large [...] at 8:50 pm on 02/10/25. Reading Location: [facility] Discharge Plan Triage Chief Complaint: Chest Pain [...] MD [Primary Care Provider] - Print Language: French Disposition Disposition: Acute Care Hospital [facility] What to do if you have Problems For any increased pain, shortness of breath, bleeding, nausea or vomiting, chestpain, or any unexpected problems, contact your Primary Care Provider. Call [facility] ([phone]) or report to the closest Emergency Room. Call 911 if necessary. 02/10/250 <Electronically signed by Jasbir Curry DO> Cosigner Signature (if applicable): CC: Dr. Beka Bowie MD ~ Signed [facility] Work Phone: 1(755) 783-318503-25-2025 Discharge summary [facility] Medical Records Department [address] [place] [address] Emergency Department Summary 02/10/25 MR#: [id number] Acct: [id number] Name: LATONYA ELDER Rep #:[id number] : 1970 54 From: Jasbir Curry DO [...] his inhalers and other medications as prescribed [facility] Medical History History of DVT (deep vein [...] elevation myocardial infarction (NSTEMI) (11/22/20) Atherosclerosis of miami coronary artery of miami heart without angina pectoris Non-ST elevation IN (NSTEMI) Home Medications ?Medication ?Instructions ?Recorded ?Last [...] Patient following commands that he was at [facility] year [id number]. Patient completed finger-nose testing bilaterally for any [...] criteria. Discussed the case with neurology/neurosurgery at [facility] Dr. Barragan who reviewed everything and states [...] % (Auto) 61.8 Lymph % (Auto) 25.5 [place] % (Auto) 9.2 Eos % (Auto) 2.4 [...] (Auto) Neut % (Auto) Lymph % (Auto) [place] % (Auto) Eos % (Auto) Baso % [...] are new since prior examination. Reading Location: [facility] Brain CT 02/10/25 18:31 IMPRESSION: 1.9 by [...] 8:00 pm with readback verification. Reading Location: [facility] Head/Neck CTA 02/10/25 18:31 IMPRESSION: 1. Large [...] at 8:50 pm on 02/10/25. Reading Location: [facility] Discharge Plan Triage Chief Complaint: Chest Pain [...] MD [Primary Care Provider] - Print Language: French Disposition Disposition: Acute Care Hospital [facility] What to do if you have Problems For any increased pain, shortness of breath, bleeding, nausea or vomiting, chestpain, or any unexpected problems, contact your Primary Care Provider. Call [facility] ([phone]) or report tothe closest Emergency Room. Call 911 if necessary. 02/10/25 2330 Cosigner Signature (if applicable): CC: Dr. Beka Bowie MD ~ Signed [facility]03-25-2025 Radiology Diagnostic study note [facility] Imaging Services [address] [place] [address] STROKE CTA Head AND Neck W/Con MR#: [id number] Acct: [id number] Name: LATONYA ELDER Rep #: [id number] : 1970 M 54 From: Rajani Thompson MD PCP: Dr. Beka Bowie MD Status: R EG ER Study:STROKE CTA Head AND Neck W/Con Date of Exam: 02/10/25 Exam# [id number] Ordering Dr: Nancy Curry DO PROCEDURE: STROKE [...] caliber. There is origin of the right CHIEF MEDICAL PHYSICIST. The middle and posterior cerebral arteries are [...] at 8:50 pm on 02/10/25. Reading Location: [facility] CC: Dr. Beka Bowie MD; Dr. Jasbir Curry DO ~ Getter Welder: Signed [facility]03-25-2025 Radiology Diagnostic study note [facility] Imaging Services [address] [place] [id number] Chest PA and Lateral MR#: [id number] Acct: [id number] Name: LATONYA ELDER Rep #: [id number] : 1970 M 54 From: Kelvin Woods MD PCP: Dr. Beka Bowie MD Status: R ER Study:Chest PA and Lateral Date of Exam: 02/10/25 Exam# [id number] Ordering Dr: Nancy Curry DO PROCEDURE: CHEST [...] are new since prior examination. Reading Location: [id number] CC: Dr. Beka Bowie MD; Dr. Jasbir Curry DO ~ Getter Welder: Signed [facility]03-25-2025 Radiology Diagnostic study note [facility] Imaging Services [address] [place], [place] [address] STROKE Brain/Head without Cont MR#: [id number] Acct: [id number] Name: LATONYA ELDER Rep #: [id number] : 1970 M 54 From: [facility] pierce Woods MD PCP: Dr. Beka Bowie MD Status: R EG ER Study:STROKE Brain/Head without Cont Date of Exam: 02/10/25 Exam# [id number] Ordering Dr: Nancy Curry DO EXAM: CT [...] 8:00 pm with readback verification. Reading Location: [id number] CC: Dr. Beka Bowie MD; Dr. Jasbir Curry DO ~ Getter Welder: Signed [facility]11-25-2024 [facility] Medical Records Department [address] [place] [address] [place] [address] Discharge Summary 10/13/24 1333 MR#: [id number] Acct: [id number] Name: LATONYA ELDER Rep #: [id number] : 1970 54 From: Manuelito Green DO PCP: Dr. Beka Bowie MD Status:DIS IN [facility] Providers Date of Admission: 10/11/24 Date of [...] artery disease #5 elevated troponin-not diagnostic of rde-SKJEQ-tzkdxxnu unclear Medications at Discharge Home Medications aspirin 81 mg chewable tablet 81 mg PO DAILY [facility] 04/27/22 loratadine 10 mg tablet 10 mg PO DAILY PRN allergies 06/26/22 carvedilol 25 mg tablet 25 mg PO BIDCM [facility] #180 tabs 04/24/23 clonidine HCl 0.1 [...] was seen in the emergency room at [facility] with complaints of shortness of [...] organomegaly, masses, or abdomin (more content not included)...[facility] 03-17-2024 NoteHNO ID: [id number] Author: RAD RENEE APRN.WINDOWS SYSTEMS ADMINISTRATOR Service: ? Author Type: Nurse Practitioner Type: Progress Notes Filed: 03/17/2024 07:43 Note Text: This note was created using Colizer. Prema Elder is a 53 year old [...] UNIT-TRIMETHOPRIM 1 MG/ML EYE DROPS Rad Renee APRN.[facility]04-29-2024 Instructions* Patient Instructions* Rad Renee APRN.RACHEL - [...] 100.5 F (38 C). [facility] History of Present illness Narrative* Rad Renee APRN.RACHEL - 03/17/2024 7:37 AM EDT This note was created using Colizer. Subjective Latonya Elder is a 53 year [...] UNIT-TRIMETHOPRIM 1 MG/ML EYE DROPS Rad Renee APRN.WINDOWS SYSTEMS ADMINISTRATOR [facility]24 Progress note Author Harvey Murphy [facility] December 26, 2023 9:31am Note Date/Time December 26, 2023 9 :25am [facility] Medical Records Department [address] [place] [address] Progress Note - Cardiology 12/26/23 0923 MR#: [id number] Acct: [id number] Name: LATONYA ELDER Rep #:[id number] : 1970 53 From: Harvey Murphy MD PCP: Dr. Beka Bowie MD Status:A DM IN Location: [place] [address] Subjective Subjective The patient is sitting up [...] call for office visit. (2) Non-ST elevation IN (NSTEMI): PLAN: The patient underwent stenting of [...] to Brilinta he should be discharged on Jrmnfnmg14 mg twice daily. This should be maintained for at least 6 weeks and then if necessary can be switched back to his chronic Plavix. 3. Right cardiovascular standpoint the patient can be discharged home. Charges/Coding Visit Charges Inpatient E&M: 32569 Subs Hosp L2 12/26/23930 <Electronically signed by Harvey Murphy MD> Cosigner Signature (if applicable): CC: ~ Signed [facility] Work Phone: 1(322) 269-422202-07-2024 Discharge summary Author Maldonado Whitt [facility] December 26, 2023 11:16am Note Date/Time December 26, 2023 9 :21am [facility] Medical Records Department [address] [place] [address] Instructions for Home/Discharge Instructions 12/26/23919 MR#: [id number] Acct: [id number] Name: LATONYA ELDER Rep #:[id number] : 1970 53 From: Maldonado mcmullen DO [...] MD; Dr. Mary Lewis MD ~ Signed [facility] Work Phone: 1(246) 309-869602-07-2024 Progress note Author Maldonado Whitt [facility] December 25, 2023 11:15pm Note Date/Time December 25, 2023 3 :18pm [facility] Medical Records Department [address] [place] [address] Progress Note - Hospitalist 12/25/23 1518 MR#: [id number] Acct: [id number] Name: LATONYA ELDER Rep #:[id number] : 1970 53 From: Maldonado mcmullen DO PCP: Dr. Beka Bowie MD Status:A DM IN Location: [place] [address]- Reason for Visit Reason for Visit: Diagnoses [...] (Auto) 75.1 H, Lymph % (Auto) 14.1 L,[place] % (Auto) 8.8, Eos % (Auto) 1.0, [...] Assessment & Plan Assessment/Plan (1) Non-ST elevation IN (NSTEMI): (2) Hypertensive emergency: PLAN: Plan Patient is a 53 year old male who presented to [facility] ED on 12/24/2023 with worsening [...] 35 minutes. Charges/Coding Visit Charges Inpatient E&M: 68808 Subs Hosp L2 12/25/23 4380 <Electronically signed by Maldonado Whitt DO> Cosigner Signature (if applicable): CC: ~ Signed [facility] Work Phone: 1(239) 713-413102-06-2024 Progress note Author Harvey Murphy [facility] December 25, 2023 7:52am Note Date/Time December 25, 2023 7 :53am [facility] Medical Records Department [address] [place] [address] Progress Note - Cardiology 12/25/23 0747 MR#: [id number] Acct: [id number] Name: LATONYA ELDER Matt Rep #:[id number] : 1970 53 From: Harvey Murphy MD PCP: Dr. Beka Bowie MD Status:A DM IN Location: [place] [address]- 1 Subjective Subjective Patient reports he had [...] % (Auto) 67.1, Lymph % (Auto) 20.4, [place] % (Auto) 10.0, Eos % (Auto) 0.9, [...] (Auto) 75.1 H, Lymph % (Auto) 14.1 L,[place] % (Auto) 8.8, Eos % (Auto) 1.0, [...] % (Auto) 67.1, Lymph % (Auto) 20.4, [place] % (Auto) 10.0, Eos % (Auto) 0.9, [...] 75.1 H, Lymph % (Auto) 14.1 L, [place] % (Auto) 8.8, Eos % (Auto) 1.0, [...] Assessment & Plan Assessment/Plan (1) Non-ST elevation IN (NSTEMI): PLAN: Patient's enzymes appear to peaked [...] coronary anatomy. Charges/Coding Visit Charges Inpatient E&M: 35805 Subs Hosp L2 12/25/23 0752 <Electronically signed by Harvey Murphy MD> Cosigner Signature (if applicable): CC: ~ Signed [facility] Work Phone: 1(344) 638-941602-05-2024 Consult note Author Harvey Murphy [facility] December 24, 2023 3:20pm Note Date/Time December 24, 2023 2 :56pm [facility] Medical Records Department [address] [place] [address] Consultation - Cardiology 12/24/23 1454 MR#: [id number] Acct: [id number] Name: LATONYA ELDER Rep #:[id number] : 1970 53 From: Harvey Murphy MD PCP: Dr. Beka Bowie MD Status:A DM IN Location: [place] [address] Assessment & Plan Assessment/Plan (1) Non-ST elevation IN (NSTEMI): PLAN: The patient's symptoms are consistent [...] EKG that was present in the ED. [facility] History Acute sinusitis, unspecified Asthma Atherosclerosis of miami coronary artery of miami heart without angina pectoris Chronic obstructive pulmonary disease (COPD) Cluster headache Community acquired pneumonia COPD (chronic obstructive pulmonary disease) Coronary artery disease Diabetes Essential hypertension Headache History of non-ST elevation myocardial infarction (NSTEMI) (11/22/20) Hyperlipidemia Insulin dependent diabetes mellitus Ischemic cardiomyopathy Left shoulder pain Migraine Myocardial infarct Nicotine dependence Non-ST elevation IN (NSTEMI) Obesity Obesity (BMI 30.0-34.9) Smoker Home [...] 20% Risk Charges/Coding Visit Charges Inpatient E&M: 95374 Init Hosp L3 Objective Data Vital Signs: [...] % (Auto) 67.1, Lymph % (Auto) 20.4, [place] % (Auto) 10.0, Eos % (Auto) 0.9, [...] % (Auto) 67.1, Lymph % (Auto) 20.4, [place] % (Auto) 10.0, Eos % (Auto) 0.9, [...] 13:13 EST Reading Location ID and State: [address] [place] [address] , Service support , EKG Initial EKG: Attestation: I personally reviewed and interpreted this EKG as follows: Prior EKG tracings: available for review Interpretation: Normal sinus rhythm with nonspecific ST-T wave changes no significant change from prior EKG. 12/24/23 1520 <Electronically signed by Harvey Murphy MD> Cosigner Signature (if applicable): CC: Dr. Beka Bowie MD~ Signed [facility] Work Phone: 1(736) 409-542702-05-2024 History and physical note Author Mary Lewis [facility] December 24, 2023 3:15pm Note Date/Time December 24, 2023 3 :13pm [facility] Medical Records Department [address] [place] [address] H&P Exam - Hospitalist 12/24/23 1503 MR#: [id number] Acct: [id number] Name: LATONYA ELDER Rep #:[id number] : 1970 53 From: Mary Lewis MD PCP: Dr. Beka Bowie MD Status:A DM IN Location: [facility] [id number]- [id number] HPI - General General Date of Admission: 12/24/23 Date of Service: 12/24/23 Chief Complaint: Chest pain, SOB HPI Narrative LATONYA ELDER, is a 53-year-old male history of COPD, tobacco use, hypertension, type 2 diabetes mellitus, CAD with 7 stents who presented to [facility] ED 12/24/2023 with chest pain [...] History Acute sinusitis, unspecified Asthma Atherosclerosis of miami coronary artery of miami heart without angina pectoris Chronic obstructive pulmonary disease (COPD) Cluster headache Community acquired pneumonia COPD (chronic obstructive pulmonary disease) Coronary artery disease Diabetes Essential hypertension Headache History of non-ST elevation myocardial infarction (NSTEMI) (11/22/20) Hyperlipidemia Insulin dependent diabetes mellitus Ischemic cardiomyopathy Left shoulder pain Migraine Myocardial infarct Nicotine dependence Non-ST elevation IN (NSTEMI) Obesity Obesity (BMI 30.0-34.9) Smoker Home [...] % (Auto) 67.1, Lymph % (Auto) 20.4, [place] % (Auto) 10.0, Eos % (Auto) 0.9, [...] 13:13 EST Reading Location ID and State: [address] [place] [address] , Service support , Assessment & Plan [...] hep gtt Charges/Coding Visit Charges Inpatient E&M: 47010 Init Hosp L2 12/24/23 3043 <Electronically signed by Mary Lewis MD> Cosigner Signature (if applicable): CC: Dr. Beka Bowie MD; Dr. Mary Lewis MD~ Signed [facility] Work Phone: 1(943) 552-887502-05-2024 Discharge summary Author Pollo Bond [facility] December 24, 2023 3:00pm Note Date/Time December 24, 2023 1 2:40pm [facility] Medical Records Department [address] [place] [address] Emergency Department Summary 12/24/23 MR#: [id number] Acct: [id number] Name: LATONYA ELDER Rep #:[id number] : 1970 53 From: Pollo Bond MD [...] History Acute sinusitis, unspecified Asthma Atherosclerosis of miami coronary artery of [place]ami heart without angina pectoris Chronic obstructive pulmonary disease (COPD) Cluster headache Community acquired pneumonia COPD (chronic obstructive pulmonary disease) Coronary artery disease Diabetes Essential hypertension Headache History of non-ST elevation myocardial infarction (NSTEMI) (11/22/20) Hyperlipidemia Insulin dependent diabetes mellitus Ischemic cardiomyopathy Left shoulder pain Migraine Myocardial infarct Nicotine dependence Non-ST elevation IN (NSTEMI) Obesity Obesity (BMI 30.0-34.9) Smoker Home [...] and heparin drip after discussion with the fire captain, Dr. Harvey Murphy. Additionally, I discussedthe patient [...] % (Auto) 67.1 Lymph % (Auto) 20.4 [place] % (Auto) 10.0 Eos % (Auto) 0.9 [...] healthcare provider: Hospitalist (Dr. Mary Lewis) and Community Development Aide (Dr. Harvey Murphy) Critical Care Time Critical care time (excluding procedures): 30-74 minutes (31), Including time spent:, Discussing w/Patient &/or Family/Quarryman, Discussing w/Consultants, Arranging Admission or Transfer and Performing Direct Patient Care at Bedside Discharge Plan Dx/Rx/DC Orders Clinical Impression: Nicotine dependence, Hypertensive emergency, Non-ST elevation IN (NSTEMI), Chest pain Disposition Disposition: Acute Care Hospital [facility] What to do if you have Problems For any increased pain, shortness of breath, bleeding, nausea or vomiting, chestpain, or any unexpected problems, contact your Primary Care Provider. Call [facility] ([phone]) or report to the closest Emergency Room. Call 911 if necessary. 12/24/23 1500 <Electronically signed by Pollo Bond MD> Cosigner Signature (if applicable): CC: Dr. Beka Bowie MD ~ Signed [facility] Work Phone: [phone]) 162-804701-03-2024 Discharge summary Author Luis York [facility] November 21, 2023 10:11am Note Date/Time November 21, 2023 7: 12am [facility] Medical Records Department [address] [place] [address] Emergency Department Summary 11/21/23 MR#: [id number] Acct: [id number] Name: LATONYA ELDER Rep #:[id number] : 1970 53 From: Luis York MD [...] History Acute sinusitis, unspecified Asthma Atherosclerosis of miami coronary artery of miami heart without angina pectoris Chronic obstructive pulmonary disease (COPD) Cluster headache Community acquired pneumonia COPD (chronic obstructive pulmonary disease) Coronary artery disease Diabetes Essential hypertension Headache History of non-ST elevation myocardial infarction (NSTEMI) (11/22/20) Hyperlipidemia Insulin dependent diabetes mellitus Ischemic cardiomyopathy Left shoulder pain Migraine Myocardial infarct Nicotine dependence Non-ST elevation IN (NSTEMI) Obesity Obesity (BMI 30.0-34.9) Smoker Home [...] arms there was no vertical drip. His bonding machine tender were normal. Facial structure was normal. Sensation [...] threshold to return. He should call his fire captain, Dr. Flores for close follow-up. Make sure [...] % (Auto) 62.0 Lymph % (Auto) 25.2 [place] % (Auto) 9.8 Eos % (Auto) 2.0 [...] your Primary Care Provider. Call [facility] ([phone]) or report to the closest Emergency Room. Call 911 if necessary. 11/21/23 1011 <Electronically signed by Luis York MD> Cosigner Signature (if applicable): CC: Dr. Beka Bowie MD ~ Signed [facility] Work Phone: Consult note Author Harvey Murphy [facility] December 24, 2023 3:20pm Note Date/Time December 24, 2023 2 :56pm [facility] Medical Records Department [address] [place] [address] Consultation - Cardiology 12/24/23 1454 MR#: [id number] Acct: [id number] Name: LATONYA ELDER Rep #:[id number] : 1970 53 From: Harvey Murphy MD PCP: Dr. Beka Bowie MD Status:A DM IN Location: [place] [id number] Assessment & Plan Assessment/Plan (1) Non-ST elevation IN (NSTEMI): PLAN: The patient's symptoms are consistent [...] History Acute sinusitis, unspecified Asthma Atherosclerosis of miami coronary artery of miami heart without angina pectoris Chronic obstructive pulmonary disease (COPD) Cluster headache Community acquired pneumonia COPD (chronic obstructive pulmonary disease) Coronary artery disease Diabetes Essential hypertension Headache History of non-ST elevation myocardial infarction (NSTEMI) (11/22/20) Hyperlipidemia Insulin dependent diabetes mellitus Ischemic cardiomyopathy Left shoulder pain Migraine Myocardial infarct Nicotine dependence Non-ST elevation IN (NSTEMI) Obesity Obesity (BMI 30.0-34.9) Smoker Home [...] 20% Risk Charges/Coding Visit Charges Inpatient E&M: 28865 Init Hosp L3 Objective Data Vital Signs: [...] % (Auto) 67.1, Lymph % (Auto) 20.4, [place] % (Auto) 10.0, Eos % (Auto) 0.9, [...] % (Auto) 67.1, Lymph % (Auto) 20.4, [place] % (Auto) 10.0, Eos % (Auto) 0.9, [...] 13:13 EST Reading Location ID and State: [facility] / [place] , Service support , EKG Initial EKG: Attestation: I personally reviewed and interpreted this EKG as follows: Prior EKG tracings: available for review Interpretation: Normal sinus rhythm with nonspecific ST-T wave changes no significant change from prior EKG. 12/24/23 1520 <Electronically signed by Harvey Murphy MD> Cosigner Signature (if applicable): CC: Dr. 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 Reading Location: [id number] Brain CT 02/10/25 18:31 IMPRESSION: 1.9 by [...] 8:00 pm with readback verification. Reading Location: [id number] Head/Neck CTA 02/10/25 18:31 IMPRESSION: 1. Large [...] at 8:50 pm on 02/10/25. Reading Location: [facility] Brain MRI 02/11/25 00:16 IMPRESSION: Acute white matter infarction, with stable size, seen in the area hypodensity noted in the CT of 02/11/2025. Reading Location: [address] Echocardiogram 02/11/25 00:16 Interpretation Summary Normal [...] Zeynep Daly; Asia Barragan; Eduardo Deal; Aleah Brasdhaw; Ricardo Thomas; Rosario Covarrubias; Anil Lema; Farzana [...] with neurology at your early convenience. [facility] [phone]. [facility] [place] [phone]. [facility] [place] [phone]. [facility] [phone]. [facility] [phone] Additionally looks like you have a pneumonia [...] Recorder Preventi (Urgent) Timeframe: 1 Day Facility: [facility] - Location: Cardiovascular Services Ordered By: Dr. Brennon Juarez Referrals / Follow Up: Beka Bowie MD [Primary Care Provider] - Within 2 Weeks Disposition Disposition (needs filled in before D/C Order can be placed): Home, Self Care Charges/Coding Visit Charges Inpatient E&M: 61693 Disch Hosp >30min 02/11/25 1432 <Electronically signed by Brennon Juarez DO> Cosigner Signature (if applicable): CC: Dr. Beka Bowie MD; Dr. Brennon Juarez DO~ Signed [facility] Work Phone: Evaluation note* Diagnosis Onset Date Resolution Status Essential hypertension acute [id number] chronic Hyperlipidemia chronic Ischemic cardiomyopathy buffer chrome rebekah Nicotine dependence chronic History of coronary artery stent placement November 182020 resolved Coronary artery disease acut e Essential hypertension acute Insulin dependent diabetes mellitus acute Nicotine dependence chronic History of coronary artery stent placement November 182020 resolved Diabetes acute Obesity (BMI 30.0-34.9) buffer chrome rebekah Coronary artery disease acut e Unstable angina acute [facility] Work Phone: Evaluation note* Diagnosis Onset Date Resolution Status Essential hypertension acute [id number] chronic Hyperlipidemia chronic Ischemic cardiomyopathy buffer chrome rebekah Nicotine dependence chronic History of coronary artery stent placement November 182020 resolved Coronary artery disease acut e Essential hypertension acute Insulin dependent diabetes mellitus acute Nicotine dependence chronic History of coronary artery stent placement November 182020 resolved Diabetes acute Obesity (BMI 30.0-34.9) buffer chrome rebekah Chest pain acute Coronary artery disease acut e Essential hypertension acute Unstable angina acute [id number] chronic History of non-ST elevation myocardial infarction (NSTEMI) November 22, 2020 chronic Hyperlipidemia chronic History of coronary artery stent placement November 182020 resolved [facility] Work Phone: Evaluation note* Diagnosis Onset Date Resolution Status Diabetes acute Obesity (BMI 30.0-34.9) buffer chrome rebekah Essential hypertension acute Chest pain resolved Unstable angina resolved Essential hypertension acute Ischemic cardiomyopathy buffer chrome rebekah Nicotine dependence chronic Diabetes acute Essential hypertension acute Left shoulder pain acute [facility] Work Phone: Evaluation note* Diagnosis Onset Date Resolution Status Diabetes acute Obesity (BMI 30.0-34.9) buffer chrome rebekah Essential hypertension acute Chest pain resolved Unstable angina resolved Essential hypertension acute Ischemic cardiomyopathy buffer chrome rebekah Nicotine dependence chronic Diabetes acute Essential hypertension acute Left shoulder pain acute Diabetes acute Hypertensive urgency acute Non-ST elevation (NSTEMI) myocardial infarction acute [facility] Work Phone: evaluation note* Diagnosis Onset Date Resolution Status Diabetes acute Obesity (BMI 30.0-34.9) buffer chrome rebekah [id number] acute Essential hypertension acute Chest pain resolved Unstable angina resolved [id number] acute Essential hypertension acute Ischemic cardiomyopathy buffer chrome rebekah Nicotine dependence chronic Diabetes acute Essential hypertension acute Left shoulder pain acute [id number] acute Diabetes acute Essential hypertension acute Hypertensive urgency acute Non-ST elevation (NSTEMI) myocardial infarction acute [facility] Work Phone: evaluation noteNo assessment information available [facility] Work Phone: evaluation note* Diagnosis Onset Date Resolution Status Chest pain acute Essential hypertension acute COPD (chronic obstructive pulmonary disease) chronic Nicotine dependence chronic [facility] Work Phone: Evaluation note* Diagnosis Onset Date Resolution Status Chest pain acute Essential hypertension acute COPD (chronic obstructive pulmonary disease) chronic Nicotine dependence chronic Chest pain acute Essential hypertension acute History of coronary artery stent placement November 182020 acute Hypertensive emergency acute Non-ST elevation IN (NSTEMI) acute COPD (chronic obstructive pulmonary disease) chronic Nicotine dependence chronic Elevated troponin resolved Hypertensive urgency resolve d [facility] Work Phone: Evaluation note* Diagnosis Onset Date Resolution Status Chest pain acute Essential hypertension acute COPD (chronic obstructive pulmonary disease) chronic Nicotine dependence chronic Chest pain acute Essential hypertension acute History of coronary artery stent placement December acute Hypertensive emergency acute Non-ST elevation IN (NSTEMI) acute COPD (chronic obstructive pulmonary disease) chronic Nicotine dependence chronic Elevated troponin resolved Hypertensive urgency resolve d [facility] Work Phone: Evaluation note* Diagnosis Onset Date Resolution Status Chest pain resolved Chest pain resolved Elevated troponin resolved Hypertensive emergency resol cameron Hypertensive urgency resolve d Non-ST elevation IN (NSTEMI) resolved Chest pain resolved Non-ST elevation IN (NSTEMI) resolved [facility] Work Phone: Evaluation note* Diagnosis Onset Date Resolution Status COPD (chronic obstructive pulmonary disease) chronic Essential hypertension chron ic Chest pain resolved COPD (chronic obstructive pulmonary disease) chronic Essential hypertension chron ic Chest pain resolved Elevated troponin resolved Hypertensive emergency resol cameron Hypertensive urgency resolve d Non-ST elevation IN (NSTEMI) resolved Essential hypertension chron ic Chest pain resolved Non-ST elevation IN (NSTEMI) resolved Vitamin D deficiency acute Essential hypertension chron ic Ischemic cardiomyopathy buffer chrome rebekah COPD (chronic obstructive pulmonary disease) chronic Essential hypertension chron ic Insulin dependent diabetes mellitus chronic [facility] Work Phone: Evaluation note* Diagnosis Bacterial conjunctivitis- Primary Other [facility] Onset Date Resolution Status Admit Date Abnormal computed tomography angiography of head acute February 11, 2025 12:04am Acute bacterial bronchitis acute February 11, 2025 12:04am Acute CVA (cerebrovascular accident) acute February 11, 2025 12:04am Obesity (BMI 30-39.9) acute Jan 12:04am Uncontrolled hypertension acute February 11, 2025 12:04am COPD exacerbation chronic January 182024 12:04am [facility] Work Phone: History and physical note Author Mary Lewis [facility] December 24, 2023 3:15pm Note Date/Time December 24, 2023 3 :13pm [facility] Medical Records Department [address] [place] [address] H&P Exam - Hospitalist 12/24/23 1503 MR#: [id number] Acct: [id number] Name: LATONYA ELDER Rep #:[id number] : 1970 53 From: Mary Lewis MD PCP: Dr. Beka Bowie MD Status:A DM IN Location: [facility] [id number] HPI - General General Date of Admission: 12/24/23 Date of Service: 12/24/23 Chief Complaint: Chest pain, SOB HPI Narrative LATONYA ELDER, is a 53-year-old male history of COPD, tobacco use, hypertension, type 2 diabetes mellitus, CAD with 7 stents who presented to [facility] ED 12/24/2023 with chest pain [...] History Acute sinusitis, unspecified Asthma Atherosclerosis of [place] coronary artery of [place] heart without angina pectoris Chronic obstructive pulmonary disease (COPD) Cluster headache Community acquired pneumonia COPD (chronic obstructive pulmonary disease) Coronary artery disease Diabetes Essential hypertension Headache History of non-ST elevation myocardial infarction (NSTEMI) (11/22/20) Hyperlipidemia Insulin dependent diabetes mellitus Ischemic cardiomyopathy Left shoulder pain Migraine Myocardial infarct Nicotine dependence Non-ST elevation IN (NSTEMI) Obesity Obesity (BMI 30.0-34.9) Smoker Home [...] % (Auto) 67.1, Lymph % (Auto) 20.4, [place] % (Auto) 10.0, Eos % (Auto) 0.9, [...] 13:13 EST Reading Location ID and State: [facility] / [place] , Service support , Assessment & Plan [...] hep gtt Charges/Coding Visit Charges Inpatient E&M: 66727 Init Hosp L2 12/24/23 1515 <Electronically signed by Mary Lewis MD> Cosigner Signature (if applicable): CC: Dr. Beka Bowie MD; Dr. Mary Lewis MD~ Signed [facility] Work Phone: Reason for referral (narrative)No reason for referral information availableWMarietta [facility] Work Phone: Chief Complaint and Reason for Visit Chief Complaint FU FROM ER chest pain chest pain 3 M FU 6 M FU UNSTABLE ANGINA Reason for Visit Essential hypertensi on [id number] Hyperlipidemia Ischemic cardiomyopathy Nicotine dependence History of [...] ANGINA Reason for Visit Essential hypertensi on [id number] Hyperlipidemia Ischemic cardiomyopathy Nicotine dependence History of coronary artery stent placement Coronary artery disease Essential hypertension Insulin dependent diabetes mellitus Nicotine dependence History of coronary artery stent placement Diabetes Obesity (BMI 30.0-34.9) Chest pain Coronary artery disease Essential hypertension Unstable angina [id number] History of non-ST elevation myocardial infarction (NSTEMI) [...] Reason for Visit Diabetes Obesity (BMI 30.0-34.9) [id number] Essential hypertension Chest pain Unstable angina [id number] Essential hypertension Ischemic cardiomyopathy Nicotine dependence Diabetes Essential hypertension Left shoulder pain [id number] Diabetes Essential hypertension Hypertensive urgency Non-ST elevation [...] artery stent placement Hypertensive emergency Non-ST elevation IN (NSTEMI) COPD (chronic obstructive pulmonary disease) Nicotine [...] artery stent placement Hypertensive emergency Non-ST elevation IN (NSTEMI) COPD (chronic obstructive pulmonary disease) Nicotine dependence Elevated troponin Hypertensive urgency Chief Complaint CHEST PAIN CHEST PAIN ER FU CHEST PAIN CHEST PAIN Amb Documentation NSTEMI, HYPERTENSIVE EMERGENCY NSTEMI, HYPERTENSIVE EMERGENCY NSTEMI, HYPERTENSIVE EMERGENCY NSTEMI, HYPERTENSIVE EMERGENCY NSTEMI, HYPERTENSIVE EMERGENCY [facility] HOSPITAL FOLLOW UP Reason for Visit Chest pain Chest pain Elevated troponin Hypertensive emergency Hypertensive urgency Non-ST elevation IN (NSTEMI) Chest pain Non-ST elevation IN (NSTEMI) Chief Complaint CHEST PAIN CHEST PAIN ER FU CHEST PAIN CHEST PAIN Amb Documentation NSTEMI, HYPERTENSIVE EMERGENCY NSTEMI, HYPERTENSIVE EMERGENCY NSTEMI, HYPERTENSIVE EMERGENCY NSTEMI, HYPERTENSIVE EMERGENCY NSTEMI, HYPERTENSIVE EMERGENCY [facility] HOSPITAL FOLLOW UP S/P [facility] 12/26 HTN URGENCY fu Severe persistent asthma, uncomplicated Reason for Visit COPD (chronic obstru ctive pulmonary disease) Essential hypertension Chest pain COPD (chronic obstructive pulmonary disease) Essential hypertension Chest pain Elevated troponin Hypertensive emergency Hypertensive urgency Non-ST elevation IN (NSTEMI) Essential hypertension Chest pain Non-ST elevation IN (NSTEMI) Vitamin D deficiency Essential hypertension Ischemic [...] April 27, 2022 7 :19am Power of Supervisor [employer] No April 27, 2022 7:19am Advance Directive Response Recorded Date/ Time Advance Directives No June 01 2:28pm Living Will No April 27, 2022 1 0:04am Power of Supervisor [employer] No April 27, 2022 10:04am Advance Directive Response Recorded Date/ Time Advance Directives No June 01 2:28pm Living Will No June 26, 2022 1:06am Power of Supervisor [employer] No June 26 1:06am Advance Directive Response Recorded Date/ Time Advance Directives No June 01 2:28pm Living Will No June 26, 2022 4:53am Power of Supervisor [employer] No June 26 4:53am Advance Directive Response Recorded Date/ Time Advance Directives No June 01 1:28pm Living Will No November 21 6:37am Power of Supervisor [employer] No November 21 6:37am Advance Directive Response Recorded Date/ Time Advance Directives No June 01 1:28pm Living Will No December 24 12:50pm Power of Supervisor [employer] No December 24, 2023 12:50pm Advance Directive Response Recorded Date/ Time Advance Directives No June 01 1:28pm Living Will No December 24 4:35pm Power of Supervisor [employer] No December 24, 2023 4:35pm Advance Directive Response Recorded Date/ Time Advance Directives No June 01 2:28pm Living Will No December 24 5:35pm Power of Supervisor [employer] No December 24, 2023 5:35pm Advance Directive Response Recorded Date/ Time Living Will No February 10, 2025 6:08pm Do you have a Healthcare Power of Supervisor [employer]? No February 10, 2025 6:08pm Advance Directives No June 01 2:28pm Advance Directive Response Recorded Date/ Time Living Will No February 11, 2025 12:38am Do you have a Healthcare Power of Supervisor [employer]? No February 11, 2025 12:38am Advance Directives [...] Ramirez MD Other Provider Active Start: [facility] 2024 End: February 11, 2025 Dr. Willie [...] Federico Ramirez MD Other Provider Active Start: [facility] 2024 Dr. Willie Aguiar MD Other Provider [...] MD Primary Care Provider Active Hesham Canchola INTERNAL SALESPERSON, INTERNAL SALESPERSON-C Attending Provider Active Team Status: Inactive Member [...] Flores Morel PA, PA Attending Provider Active Cloth Folder Machine Relationship Specialty Start Date End Date Beka Bowie [address] [place] [address] PCP - General 03/17/24 Team Status: Active Member Role Status Dates Dr. Beka Bowie MD Primary Care Provider Active Start: February 11, 2025 Dr. Jasbir Curry DO Emergency Provider Active Start: February 11, 2025 Dr. Mitchell Deras DO Admit Provider Active Start: February 11, 2025 Dr. Mitchell Deras DO Attending Provider Active Start: February 11, 2025 Federico Ramirez MD Other Provider Active Start: [facility] 2024 Dr. Willie Aguiar MD Other Provider [...] or prosecute any alcohol or drug abuse [facility] Reason for Visit (unrecogniz ed section and content) Reason Comments Eye Problem left eye x 2 days, d rainage and matting (unrecognized sect ion and content) No Status Records FoundNo Status Records Found INFORMATION SOURCE (unrecogn ized section and content) DATE CREATED AUTHOR 03/17/2024 [facility] DATE CREATED AUTHOR AUTHOR'S ELLEN NICOLAS 04/01/2025 [facility] FOR RECORDS PERTAINING TO PATIENTS WHO [...] BE BASED ON THE PRIMARY CLINICAL RECORDS. [employer] provides no warranty or guarantee of the accuracy or completeness of information in this document.
[2025-07-06] VITALS (18 sets, daily range): BP systolic 105–203; BP diastolic 70–114; PULSE 72–93; RESP 16–25; TEMP 36.4–37; O2SAT 92–98; BMI 34.2
--- NOTE | 2025-07-06 00:42 | CT_ITS ---
PROCEDURE: CTA HEAD AND NECK W/ CONTRAST 07/06/2025 REASON FOR EXAM: RIGHT PAROTITIS. TECHNIQUE: CTA HEAD AND NECK W/ CONTRAST Multiplanar Sagittal and Coronal images were obtained. CONTRAST: 100 cc Isovue [id number] One or more dose reduction techniques were used (e.g., Automated exposure control, adjustment of the mA and/or kV according to patient size, use of iterative reconstruction technique). RADIATION DOSE SUMMARY: DLP: 1662 mGycm COMPARISON: February 10, 2025 FINDINGS: Aortic Arch: The ascending aorta is dilated to 4.0 cm in AP diameter. Brachiocephalic and Subclavians: Patent RIGHT Carotid: Right CCA: Patent Right ICA: Patent Maximum stenosis (NASCET): 0 % Right ECA: Patent LEFT Carotid: Left CCA: Patent Left ICA: Patent Maximum stenosis (NASCET): 0 % Left ECA: Patent Vertebrals: Patent RIGHT Vertebral: Patent LEFT Vertebral: Patent Anatomy: Anatomic Aneurysm or avm: None Anterior cerebral arteries: Occluded right A1 segment anterior cerebral artery. The right A2 segment is patent via collateral. Patent anterior cerebral on the left Middle cerebral arteries: Patent Basilar artery: Patent Posterior cerebral arteries: Patent Other major branches of the posterior circulation: Patent Major venous structures: Patent Other findings: Neck: There is a 1.1 x 1.3 cm enlarged pretracheal lymph node. There is subcutaneous edema throughout the anterior and right neck with no definite organized or drainable collection. There is asymmetric enlargement of the right submandibular gland with a 0.2 cm calcified focus, image 280/628, which can indicate stone. Lungs: Lungs are clear bones: There is mucosal thickening in the floor of the right and left maxillary sinus. There is hardware fusion at C5-6. CT/CTA Head AND Neck W/ Contrast IMPRESSION: The ascending aorta is dilated to 4.0 cm in AP diameter. There is a 1.1 x 1.3 cm enlarged pretracheal lymph node.There is subcutaneous e lonnie throughout the anterior and right neck with no definite organized or drainable collection, new. There is asymmetric enlarg ement of the right submandibular gland with a 0.2 cm calcified focus, image 280/628, which can indicate stone, unchanged in posit ion compared to the prior. There is mucosal thickening in the floor of the right and left maxillary sinus. 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 Reading Location: [id number]
--- OUTSIDE RECORDS SUMMARY | 2025-07-06 00:56 | XMS RPT_ITS | CCD ---
Author Organization [facility] CliniSymo Care Team Providers Care Charging Plug Placer Name Role Phone MD Flores Cyril S Unavailable Jesika NEWSPAPER PRESS OPERATOR APPRENTICE, Hesham Sharma Unavailable Valeriano Weir Unavailable Unavailable MD Flores Cyril S Unavailable Valeriano Weir Unavailable Unavailable VETO Liang, Crista Duran Unavailable Unavailabl e Dr. Beka Bowie Primary Care Provider [phone] Dr. Beka Bowie Referring Provider [phone] Shimon NEWSPAPER PRESS OPERATOR APPRENTICE, NEWSPAPER PRESS OPERATOR APPRENTICE-C Mare Attending Provider Shimon VICTOR, NEWSPAPER PRESS OPERATOR APPRENTICE-C Mare Referring Provider Shimon VICTOR, NEWSPAPER PRESS OPERATOR APPRENTICE-C Mare Other Provider [phone] Dr. Erci Flores Attending Provider [phone] Beka [...] Provider Dr. Eric Flores Other Provider Roof NEWSPAPER PRESS OPERATOR APPRENTICE, NEWSPAPER PRESS OPERATOR APPRENTICE-Yung Sharma Attending Provider MD [facility] [...] 00 Dr. Eric Flores Other Provider Jesika NEWSPAPER PRESS OPERATOR APPRENTICE, NEWSPAPER PRESS OPERATOR APPRENTICE-Yung Sharma Attending Provider MD [facility] [...] Unavailable Dr. Zeynep Daly DO Other Provider [phone] Laurel EVANGELISTA, Dr. Betancourt Other Provider Say EVANGELISTA, Dr. Clark Other Provider Augustine EVANGELISTA, Dr. Bullard Other Provider William EVANGELISTA, Dr. Silva Other Provider Satish EVANGELISTA, Dr. Douglass Other Provider [phone] Torey EVANGELISTA, Dr. Ma Other Provider Lary EVANGELISTA, Farzana Other Provider Edna EVANGELISTA, Dr. Resendez Other Provider Randy EVANGELISTA, Dr. Oakley Other Provider Romero EVANGELISTA, Dr. Sevilla Other Provider Richie EVANGELISTA, Dr. Kala Barnes Other Provider [phone] Nic EVANGELISTA, Dr. Smith Other Provider [phone] Gene EVANGELISTA, Dr. Ramos Other Provider Darwin EVANGELISTA, Dr. Kevin Other Provider [phone] Jerad EVANGELISTA, Dr. Ann Other Provider Unavailable Raciel EVANGELISTA, Grant Other Provider Unavailable Dr. Mitchell Deras DO Other Provider Unavail able Dr. Brennon Juarez DO Attending Provider [phone] Brennon Juarez DO Other Provider [phone] Sandra EVANGELISTA, Dr. Reyes Attending Provider [phone] Oleghe, Efewongbe Primary Care Unavailable Brennon Mckeon [...] Primary Care Unavailable Mitchell Deras Referring Unavailable [facility] Unavailable Brennon Coronado Attending Unavailable Eric Flores Attending Unavailable [facility] Unavailable Brennon Juarez Referring Unavailable Allergies Allergy Classification Reported Allergen(s) Allergy Type Date of Onset Reaction(s) Facility (20 sources) amoxicillin; Translations: [AMOXICILLIN] drug allergy [address] [facility] Work Phone: (9 sources) amoxicillin / clavulanate drug allergy 7 severe rash [facility] Work Phone: (20 sources) codeine; Translations: [CODEINE] drug allergy 5 GI Upset [facility] Work Phone: (14 sources) Amoxicillin; Translations: [amoxicillin trihydrate] Drug Allergy 2 [facility] [place] [facility] (14 sources) potassium clavulanate; Translations: [potassium clavulanate] Allergy to substance 2 [facility] (5 sources) Ticagrelor Drug Allergy 4 Shortness of Breath [facility] (1 source) Ticagrelor Drug Allergy 5 [facility] Repository Medications Current Medications Medication Drug Class(es) Dates Sig (Normalized) Sig (Original) [id number] 200 actuat albuterol 0.09 mg/actuat metered dose [...] TBEC One tablet by mouth daily ASPIRIN [id number] Suly Yoder RN Start: 12-12-2016 End: 04-27-2022 take 1 tablet by mouth once daily Aspirin 81 MG tablet,chewable Active 81 mg PO DAILY April 27, 2022 9:58am brompheniramine maleate 0.4 mg/ml / dextromethorphan hydrobromide 2 mg/ml / pseudoephedrine hydrochloride 6 mg/ml oral solution (1 source) alpha-Adrenergic Agonist, Uncompetitive F-oqtivk-T-aspartate Receptor Antagonist, Sigma-1 Agonist Start: 10-29-2018 take 5 mL by mouth four times daily as needed Jtgyuytmdzxlbqi-Verlvdgzb-VU (BROMFED DM) 2-30-10 mg/5 mL syrup Indications: [...] Active Fluticasone-Umecl idin-Vilanter (1 source) Start: 06-16-2021 Ejychvwbzcu-Ckwfkekkc-Inbptn e r Active 1 INH INHALATION DAILY [...] the information source for Protocol details. Insulin [place] (Disposable) (1 source) Start: 05-25-2021 Insulin Needle [...] 12:00am May 01, 2021 9:03am polymyxin b 48191 unt/ml / trimethoprim 1 mg/ml ophthalmic solution [...] One tablet by mouth daily AMLODIPINE BESYLATE [id number] Hesham Sharma Jesika NEWSPAPER PRESS OPERATOR APPRENTICE apixaban 5 mg oral tablet (2 sources) [...] 2 puffs twice daily BUDESONIDE-FORMOT CHASE FUMARATE [id number] Suly Yoder RN Start: 12-22-2016 SYMBICORT 80-4 .5 MCG/ACT AERO inhale 2 puffs twice daily BUDESONIDE-FORMOTEROL FUMARATE [id number] Suly Yoder RN carvedilol 25 mg oral [...] 23, 2021 5:10pm Start: 04-28-2021 End: 11-23-2021 Lxglbmqqwcf-Cvapxioki-Dmbjtu er (Trelegy Ellipta) 100-62.5-25 mcg Blister With Device Discontinued 1 NMA INHALATION DAILY April 28, 2021 12:00am November 23, 2021 5:10pm Start: 04-28-2021 End: 11-23-2021 Dlvrbgytkya-Tfkcvloww-Wdxygh er (Trelegy Ellipta) 100-62.5-25 mcg Blister With Device Discontinued 1 INH INHALATION DAILY April 27, 2021 11:00pm November 23, 2021 4:10pm Start: 04-28-2021 End: 11-23-2021 Iuwuzclajfc-Ouvzborwc-Rdenza er (Trelegy Ellipta) 100-62.5-25 mcg Blister With [...] One tablet by mouth daily LEVOTHYROXINE SODIUM [id number] Suly Yoder RN Lidocaine (13 sources) Antiarrhythmic, [...] 2021 12:00am August 17, 2021 4:39pm nystatin 687988 unt/ml oral suspension (13 sources) Polyene Antifungal Start: 05-01-2021 End: 06-01-2021 take 041517 [IU] by mouth four times daily Nystatin 100,000 unit/mL Suspension Discontinued 295415 U PO 4 TIMES DAILY 140 7 [...] tablet by mouth daily as needed TADALAFIL [id number] Suly Yoder RN ticagrelor 90 mg oral [...] disease (20 sources) Atherosclerotic heart disease of [place] coronary artery without angina pectoris; Translations: [Coronary [...] D 1,25 DIHY 8.9 pg/mL Abnormal 24.8-81.5 [facility] Comment on above: Result Comment: Perf ormed at: BN - [facility] [address] [id number] Power Shovel Operator Helper: Saundra Anderson MD, Phone: [phone] Performed By: #### L 501.4021, L506.0400, L501.9520, L100.0100, L503.7505, L500.2500 #### [facility] [address] [place], [place], [id number] Basic Metabolic Profile (BMP )on 02-12-2025 BUN Normal - [facility] Comment on above: Result Comment: Canc elled via OM: Order cancelled - Patient discharged Performed By: #### L 501.4021, L506.0400, L501.9520, L100.0100, L503.7505, L500.2500 #### [facility] [address] [place], [place], [address] [phone] BUN/CRE Normal - [facility] Comment on above: Result Comment: Canc elled via OM: Order cancelled - Patient discharged Performed By: #### L 501.4021, L506.0400, L501.9520, L100.0100, L503.7505, L500.2500 #### [facility] [address] [place], [address] Calcium Normal 7.6-11.0 [facility] Comment on above: Result Comment: Canc elled via OM: Order cancelled - Patient discharged Performed By: #### L 501.4021, L506.0400, L501.9520, L100.0100, L503.7505, L500.2500 #### [facility] [address] [place], [address] CL Normal 98-108 [facility] Comment on above: Result Comment: Canc elled via OM: Order cancelled - Patient discharged Performed By: #### L 501.4021, L506.0400, L501.9520, L100.0100, L503.7505, L500.2500 #### [facility] [address] [place], [address] CO2 Normal 21.0-32.0 [facility] Comment on above: Result Comment: Canc elled via OM: Order cancelled - Patient discharged Performed By: #### L 501.4021, L506.0400, L501.9520, L100.0100, L503.7505, L500.2500 #### [facility] [address] [place], [address] CREAT,SERUM Normal 0.70-1.20 [facility] Comment on above: Result Comment: Canc elled via OM: Order cancelled - Patient discharged Performed By: #### L 501.4021, L506.0400, L501.9520, L100.0100, L503.7505, L500.2500 #### [facility] [address] [place], [address] eGFR Normal >60 [facility] Comment on above: Result Comment: Canc elled via OM: Order cancelled - Patient discharged Performed By: #### L 501.4021, L506.0400, L501.9520, L100.0100, L503.7505, L500.2500 #### [facility] [address] [place], [address] GAP Normal 5-15 [facility] Comment on above: Result Comment: Canc elled via OM: Order cancelled - Patient discharged Performed By: #### L 501.4021, L506.0400, L501.9520, L100.0100, L503.7505, L500.2500 #### [facility] [address] [place], [address] GLU Normal 70-99 [facility] Comment on above: Result Comment: Canc elled via OM: Order cancelled - Patient discharged Performed By: #### L 501.4021, L506.0400, L501.9520, L100.0100, L503.7505, L500.2500 #### [facility] [address] [place], [address] Potassium Normal 3.3-5.1 [facility] Comment on above: Result Comment: Canc elled via OM: Order cancelled - Patient discharged Performed By: #### L 501.4021, L506.0400, L501.9520, L100.0100, L503.7505, L500.2500 #### [facility] [address] [place], [address] Basic Metabolic Profile (BMP) Normal 133-145 [facility] Comment on above: Result Comment: Canc elled via OM: Order cancelled - Patient discharged Performed By: #### L 501.4021, L506.0400, L501.9520, L100.0100, L503.7505, L500.2500 #### [facility] [address] [place], [address] CBC W/Diff, Automatedon 03-2 Absolute Neut Normal 2.0-7.7 [facility] Comment on above: Result Comment: Canc elled via OM: Order cancelled - Patient discharged Performed By: #### L 501.4021, L506.0400, L501.9520, L100.0100, L503.7505, L500.2500 #### [facility] [address] [place], [address] HCT Normal 40-54 [facility] Comment on above: Result Comment: Canc elled via OM: Order cancelled - Patient discharged Performed By: #### L 501.4021, L506.0400, L501.9520, L100.0100, L503.7505, L500.2500 #### [facility] [address] [place], [address] HGB Normal 13.0-16.5 [facility] Comment on above: Result Comment: Canc elled via OM: Order cancelled - Patient discharged Performed By: #### L 501.4021, L506.0400, L501.9520, L100.0100, L503.7505, L500.2500 #### [facility] [address] [place], [address] MCH Normal 27.0-32.0 [facility] Comment on above: Result Comment: Canc elled via OM: Order cancelled - Patient discharged Performed By: #### L 501.4021, L506.0400, L501.9520, L100.0100, L503.7505, L500.2500 #### [facility] [address] [place], [address] MCHC Normal 32-36 [facility] Comment on above: Result Comment: Canc elled via OM: Order cancelled - Patient discharged Performed By: #### L 501.4021, L506.0400, L501.9520, L100.0100, L503.7505, L500.2500 #### [facility] [address] [place], [address] MCV Normal 80-94 [facility] Comment on above: Result Comment: Canc elled via OM: Order cancelled - Patient discharged Performed By: #### L 501.4021, L506.0400, L501.9520, L100.0100, L503.7505, L500.2500 #### [facility] [address] [place], [address] NEUT% Normal 47-70 [facility] Comment on above: Result Comment: Canc elled via OM: Order cancelled - Patient discharged Performed By: #### L 501.4021, L506.0400, L501.9520, L100.0100, L503.7505, L500.2500 #### [facility] [address] [place], [address] PLT Normal 150-450 [facility] Comment on above: Result Comment: Canc elled via OM: Order cancelled - Patient discharged Performed By: #### L 501.4021, L506.0400, L501.9520, L100.0100, L503.7505, L500.2500 #### [facility] [address] [place], [address] RBC Normal 4.6-6.2 [facility] Comment on above: Result Comment: Canc elled via OM: Order cancelled - Patient discharged Performed By: #### L 501.4021, L506.0400, L501.9520, L100.0100, L503.7505, L500.2500 #### [facility] [address] [place], [address] RDW CV Normal 11.6-14.6 [facility] Comment on above: Result Comment: Canc elled via OM: Order cancelled - Patient discharged Performed By: #### L 501.4021, L506.0400, L501.9520, L100.0100, L503.7505, L500.2500 #### [facility] [address] [place], [address] RDW SD Normal 35.1-43.9 [facility] Comment on above: Result Comment: Canc elled via OM: Order cancelled - Patient discharged Performed By: #### L 501.4021, L506.0400, L501.9520, L100.0100, L503.7505, L500.2500 #### [facility] [address] [place], [address] WBC Normal 4.4-11.0 [facility] Comment on above: Result Comment: Canc elled via OM: Order cancelled - Patient discharged Performed By: #### L 501.4021, L506.0400, L501.9520, L100.0100, L503.7505, L500.2500 #### [facility] [address] [place], [address] Alcohol, Blood (Medical)-Ser umon 02-11-2025 SERUM ETOH < 10.1 Normal <=10.0 [facility] Comment on above: Result Comment: This test is for medical purposes only. The legal definition of intoxication varies according to local law. Performed By: #### L 501.4020 #### [facility] [address] [facility] [place], [address] Amphetamines Screen method > 1000 ng/mL Ql (U)Ordered By: Mitchell Lucero on 02-11-2025 Amphetamines Ql (U) Negative <1000 ng/mL [facility] Urine Barbiturates Screen Negative < 200 ng/mL [facility] Bedside Glucoseon 02-11-2025 FINGERSTICK GLU 339 mg/dL High 74-106 [facility] Comment on above: Result Comment: CARLOS GEMENT OF PATIENT CARE PER NURSING PROTOCOL Performed By: #### L 501.4021, L506.0400, L501.9520, L100.0100, L503.7505, L500.2500 #### [facility] [address] [place], [address] FINGERSTICK GLU 435 mg/dL High 74-106 [facility] Comment on above: Result Comment: CARLOS MAYFIELDLEILA OF PATIENT CARE PER NURSING PROTOCOL Performed By: #### L 501.4021, L506.0400, L501.9520, L100.0100, L503.7505, L500.2500 #### [facility] [address] [place], [address] Brain W/WO Contraston 2024 Brain W/WO Contrast [facility] Imaging Services [address] [place] [address] Brain W/WO Contrast MR#: [id number] Acct: [id number] Name: LATONYA ELDER Rep #: [id number] : 1970 M 54 From: Mitchell Torrez PCP: Dr. Beka Bowie MD Status: DIS IN Study: Brain W/WO Contrast Date of Exam: 02/11/25 Exam# [id number] Ordering Dr: Mitchell Deras DO ADDENDUM by Dr. Mitchell King MD on 03/02/25 at 1035 Dose: 20 mL Clariscan intravenous. Reading Location: [id number] 03/02/25 1035 Date cc: Dr. Mitchell Deras [...] in the CT of 02/11/2025. Reading Location: [address] CC: Dr. Mitchell Deras DO; Dr. Beka Bowie MD Production Sanitizer: Signed Normal [facility] Calculated very low density lipoprotein (VLDL) cholesterol measurementOrdered By: Mitchell Lucero on 02-11-2025 VLDL Cholesterol 15 mg/dL 5-40 [facility] Carotid Duplex Ultrasoundon 02-11-2025 Carotid Duplex Ultrasound [facility] Cardiovascular Services [address] [facility] [place] [address] Carotid Duplex Ultrasound 02/11/25 0817 MR#: [id number] Acct: [id number] Name: LATONYA ELDER Rep #: [id number] : 1970 54 From: Brennon Coronado MD [...] the left vertebral artery. Procedure Carotid Duplex 16966. This is a Carotid Duplex examination using [...] Dictated: 02/11/25 0817 Date Transcribed: 02/11/25 1526 Production Sanitizer: Signed Normal [facility] Echo Complete W/ Contraston 02-11-2025 Echo Complete W/ Contrast [facility] Cardiovascular Services [address] [place] [address] Echo Complete W/ Contrast 02/11/25 0953 MR#: [id number] Acct: [id number] Name: LATONYA ELDER Rep #: [id number] : 1970 54 From: Eric Flores MD [...] LV V1 max: 77.6 cm/sec TR max teot: 344.4 cm/sec LV V1 max P.4 mmHg [...] Date Dictated: 02/11/25952 Date Transcribed: 02/11/25 1125 Production Sanitizer: S (more content not included)... Normal [facility] Echocardiogram study reportO rdered By: Eric Flores on 02-11-2025 Study report [facility] [place] [address] Echo Complete W/ Contrast 02/11/2553 MR#: [id number] Acct: [id number] Name: LATONYA ELDER Rep #:[id number] : 1970 54 From: Eric Torrez Attending [...] Dictated: 02/11/25 0953 Date Transcribed: 02/11/25 1125 Production Sanitizer: Signed [facility] Work Phone: Electrocardiogram reportOrde red By: Eric Flores on 02-11-2025 EKG study [facility] Cardiovascular Services [address] [place] [address] 12 Lead EKG 02/10/25 1808 MR#: [id number] Acct: [id number] Name: LATONYA ELDER Rep #:[id number] : 1970 54 From: Eric Flores MD [...] Abnormal ECG Confirmed by SANDRA EVANGELISTA, ERIC ([id number]), newspaper or periodical editor TESS PERRY ([id number]) on 02/11/2025 8:32:04 AM Referred By: Confirmed By: ERIC FLORES MD 02/11/25 0832 Date _ Eric Flores MD CC: Dr. Beka Bowie MD; Dr. Brennon Juarez DO; Dr. Jasbir Curry DO ~ Signed [facility] Work Phone: Ethanol [Mass/Vol]Ordered By : Mitchell Lucero on 02-11-2025 Ethyl Alcohol Level < 10.1 mg/dL <10.1 [facility] Comment on above: This test is for med ical purposes only. The legal definition of intoxication varies according to local law. FOLATES,SERUM (FOLIC ACID)on 02-11-2025 FOLATES,SERUM 7.12 ng/mL Normal 4.60-34.80 [facility] Comment on above: Result Comment: Hemo lysis, Results will be affected, Requires Recollection. Performed By: #### L 501.4020 #### [facility] [address] [place], [place], [id number] Folate [Mass/Vol]Ordered By: Mitchell Lucero on 02-11-2025 Serum Folate 7.12 ng/mL 4.60-34.80 [facility] Comment on above: Hemolysis, Results w ill be affected, Requires Recollection. Glucose measurement at [facility] deOrdered By: Brennon Juarez on 02-11-2025 Bedside Glucose (Misc Panel) 339 mg/dL High 74-106 [facility] Comment on above: MANAGEMENT OF PATIEN T CARE PER NURSING PROTOCOL Hemoglobin A1con 02-11-2025 HbA1c (Bld) [Mass fraction] 10.8 % Normal <=5.6 [facility] Comment on above: Performed By: #### L 501.4020 #### [facility] [address] [place], [address] Hemoglobin A1c percentageOrd ered By: Mitchell Lucero on 02-11-2025 HbA1c (Bld) [Mass fraction] 10.8 % >5.7 [facility] L. pneumophila Ag Ql (U)Orde red By: Brennon Juarez on 02-11-2025 Legionella Antigen [facility] L503.0106on 02-11-2025 Cobalamin (Vitamin B12) [Mass/Vol] 573 pg/mL Normal 180-914 [facility] Comment on above: Performed By: #### L 501.4021, L506.0400, L501.9520, L100.0100, L503.7505, L500.2500 #### [facility] [address] [place], [address] LDL calc ser/plasOrdered By: Mitchell Lucero on 02-11-2025 LDL Cholesterol, Calculated 160 mg/dL [facility] Comment on above: Igmfgfydeh=112-736 m g/dL & Higher Ifrc=922 mg/dL or greater Legionella Antigen Urineon 0 02-11-2025 LEGU URINE, RANDOM Legionella Antigen result interpretation: L pneumo Ag Ur Ql Negative Presumptive negative for Legionella pneumophila serogroup 1 antigen in urine, suggesting no recent or current infection. Legionella Ag, Urine Negative (See interpretation below) Normal [facility] Comment on above: Performed By: #### L 503.6005, L300.3900, L501.5425, L100.0100, L500.2500, L300.4310, L503.6620 #### [facility] [address] [place], [address] Lipid Profileon 02-11-2025 CHOL:HDL 5.44 Normal [facility] Comment on above: Order Comment: Comme nts: NPO at [place] prior to lipid panel Performed By: #### L 501.4021, L506.0400, L501.9520, L100.0100, L503.7505, L500.2500 #### [facility] [address] [place], [address] Cholesterol [Mass/Vol] 215 mg/dL High <=200 [facility] Comment on above: Order Comment: Comme nts: NPO at [place] prior to lipid panel Result Comment: Chol esterol level, Desirable <200 mg/dL Borderline high cholesterol 200-239 mg/dL High cholesterol >=240 mg/dL Recommendations of the NCEP Adult Treatment Panel for the following risk-cutoff thresholds for the [place] population. Performed By: #### L 501.4021, L506.0400, L501.9520, L100.0100, L503.7505, L500.2500 #### [facility] [address] [place], [address] Cholesterol in HDL [Mass/Vol] 40 mg/dL Normal [facility] Comment on above: Order Comment: Comme [...] 501.4021, L506.0400, L501.9520, L100.0100, L503.7505, L500.2500 #### [facility] [address] [place], [address] Cholesterol in LDL [Mass/Vol] 160 mg/dL Normal [facility] Comment on above: Order Comment: Comme nts: NPO at [place] prior to lipid panel Result Comment: Bord ebungz=529-939 mg/dL Higher Utqb=539 mg/dL or greater Performed By: #### L 501.4021, L506.0400, L501.9520, L100.0100, L503.7505, L500.2500 #### [facility] [address] [place], [address] Cholesterol in VLDL [Mass/Vol] 15 mg/dL Normal 5-40 [facility] Comment on above: Order Comment: Comme nts: NPO at [place] prior to lipid panel Performed By: #### L 501.4021, L506.0400, L501.9520, L100.0100, L503.7505, L500.2500 #### [facility] [address] [place], [address] Triglyceride [Mass/Vol] 76 mg/dL Normal [facility] Comment on above: Order Comment: Comme nts: NPO at [place] prior to lipid panel Result Comment: The drugs N-Acetylcysteine and Metamizole may falsely depress this assay. Normal range: <150 mg/dL Borderline High: 150-199 mg/dL High: 200-499 mg/dL Very High: >500 mg/dL Performed By: #### L 501.4021, L506.0400, L501.9520, L100.0100, L503.7505, L500.2500 #### [facility] [address] [place], [address] MR/CON.PCM.NEon 02-11-2025 MR/CON.PCM.NE [facility] Medical Records Department [address] [place] [address] Consultation - Neurology 02/11/25 1248 MR#: [id number] Acct: [id number] Name: LATONYA ELDER Rep #: [id number] : 1970 54 From: Eduardo Deal MD PCP: Dr. Beka Bowie MD Status:DIS IN Location: ICU [id number] Assessment and Plan: Neuro Assessment/Plan 54 y/o man with h/o HTN, DLD, obesity, DM, CAD s/p stent and NSTEMI on plavix and ASA, b/l LE DVT not on AC p/w confusion for the last 2 days. He denies aphasia and just reports confusion. He reported that his symptoms have been zqjtbg-dyi-dhlzsi for the past several days and since [...] up TTE and workup for chest pain. OT/PT/PATIENT INTAKE REPRESENTATIVE I personally attended this patient and spent [...] He reported that his symptoms have been jaogvt-myi-mapzwg for the past several days and since [...] Today, he reports feeling better with NIHSS-0. [facility] Medical History History of DVT (deep [...] elevation myocardial infarction (NSTEMI) (11/22/20) Atherosclerosis of [place] coronary artery of [place] heart without angina pectoris Non-ST elevation [place] (NSTEMI) Home Medications ???Medication ???Instructions ???Recorded ???Last [...] chest 0 (more content not included)... Normal [facility] Magnetic resonance imaging r eportOrdered By: Mitchell King on 02-11-2025 Study report [facility] Imaging Services [address] [place] [address] Brain W/WO Contrast MR#: [id number] Acct: [id number] Name: LATONYA ELDER Rep #: [id number] : 1970 M 54 From: Fabien King MD PCP: Dr. Beka Bowie MD Status: A DM IN Study:Brain W/WO Contrast Date of Exam: 02/11/25 Exam# [id number] Ordering Dr: Mitchell King DO EXAM: MRI [...] in the CT of 02/11/2025. Reading Location: [address] CC: Dr. Mitchell Deras DO; Dr. Beka Bowie MD ~ Production Sanitizer: Signed [facility] Methadone, urineOrdered By: Mitchell Lucero on 02-11-2025 Urine Methadone Screen Negative < 300 ng/mL [facility] No Panel InformationOrdered By: Mitchell Lucero on 02-11-2025 Urine Buprenorphine Qualitative Negative < 200 ng/mL [facility] Urine Oxycodone Screen Negative < 100 ng/mL [facility] Quantitative urine opiates m easurementOrdered By: Mitchell Lucero on 02-11-2025 Opiates Ql (U) Negative < 300 ng/mL [facility] Screening total cholesterol/ high density lipoprotein (HDL) cholesterol ratioOrdered By: Mitchell Lucero on 02-11-2025 Cholesterol.total/Choles terol in HDL [Mass ratio] 5.44 {ratio} [facility] Serum or plasma cholesterol in HDL measurement (mass/volume)Ordered By: Mitchell Lucero on 02-11-2025 Cholesterol in HDL [Mass/Vol] 40 mg/dL >40 [facility] Comment on above: National Cholesterol Education Program (NCEP) guidelines:<40 mg/dL: Low HDL-cholesterol (major risk factor for CHD)>= 60 mg/dL: High HDL-cholesterol (negative risk factor for CHD)HDL-cholesterol is affected by a number of factors, e.g. smoking, exercise, hormones, sex and age. Serum or plasma cholesterol measurement (mass/volume)Ordered By: Mitchell Lucero on 02-11-2025 Cholesterol [Mass/Vol] 215 mg/dL High <201 [facility] Comment on above: Cholesterol level, D esirable <200 mg/dLBorderline high cholesterol 200-239 mg/dLHigh cholesterol >=240 mg/dLRecommendations of the NCEP Adult Treatment Panel for the following risk-cutoff thresholds for the [place] population. Strep pneumoniae Antig(UR,CS F)on 02-11-2025 STPAG URINE INTERPRETATION Strep pneumoniae Antig(UR,CSF) Strep pneumoniae Antig(UR,CSF) Negative Urine Presumptive negative for pneumococcal pneumonia, suggesting no current or recent pneumococcal infection. Infection due to S pneumoniae cannot be ruled out since the antigen present in the sample may be below the detection limit of the test. Strep pneumo Test Negative URINE (See interpretation below) Normal [facility] Comment on above: Performed By: #### L 503.6005, L300.3900, L501.5425, L100.0100, L500.2500, L300.4310, L503.6620 #### [facility] Laboratory [address] [facility] [place], [address] Streptococcus pneumoniae ant igen assayOrdered By: Brennon Juarez on 02-11-2025 Streptococcus pneumoniae Antigen (M [facility] TSH DL <= 0.005 mIU/L QnOrde red By: Mitchell Lucero on 02-11-2025 Thyroid Stimulating Hormone (TSH) 0.973 uIU/mL 0.300-4.200 [facility] Thyroid Stim Hormone (TSH)on 02-11-2025 TSH 0.973 uIU/mL Normal 0.300-4.200 [facility] Comment on above: Performed By: #### L 501.4021, L506.0400, L501.9520, L100.0100, L503.7505, L500.2500 #### [facility] [address] [facility] [place], [address] Triglycerides measurementOrd ered By: Mitchell Lucero on 02-11-2025 Triglyceride [Mass/Vol] 76 mg/dL <199 [facility] Comment on above: The drugs N-Acetylcy steine and Metamizole may falsely depress this assay. Normal range: <150 mg/dLBorderline High: 150-199 mg/dLHigh: 200-499 mg/dLVery High: >500 mg/dL Urine Drug Screen (VISTA)on 02-11-2025 AMPHETAMINES Negative Normal <1000 ng/mL [facility] Comment on above: Performed By: #### L 501.4021, L506.0400, L501.9520, L100.0100, L503.7505, L500.2500 #### [facility] [address] [place], [address] BARBITIURATES Negative Normal < 200 ng/mL [facility] Comment on above: Performed By: #### L 501.4021, L506.0400, L501.9520, L100.0100, L503.7505, L500.2500 #### [facility] [address] [place], [address] BENZODIAZIPINE Negative Normal < 200 ng/mL [facility] Comment on above: Performed By: #### L 501.4021, L506.0400, L501.9520, L100.0100, L503.7505, L500.2500 #### [facility] [address] [place], [address] BUP Ur Drug Scr Negative Normal < 200 ng/mL [facility] Comment on above: Performed By: #### L 501.4021, L506.0400, L501.9520, L100.0100, L503.7505, L500.2500 #### [facility] [address] [place], [address] COCAINE Negative Normal < 300 ng/mL [facility] Comment on above: Performed By: #### L 501.4021, L506.0400, L501.9520, L100.0100, L503.7505, L500.2500 #### [facility] [address] [place], [address] Fentanyl Negative Normal [facility] Comment on above: Performed By: #### L 501.4021, L506.0400, L501.9520, L100.0100, L503.7505, L500.2500 #### [facility] [address] [place], [address] METHADONE Negative Normal < 300 ng/mL [facility] Comment on above: Performed By: #### L 501.4021, L506.0400, L501.9520, L100.0100, L503.7505, L500.2500 #### [facility] [address] [place], [address] OPIATES Negative Normal < 300 ng/mL [facility] Comment on above: Performed By: #### L 501.4021, L506.0400, L501.9520, L100.0100, L503.7505, L500.2500 #### [facility] [address] [place], [address] OXYCODONE Negative Normal < 100 ng/mL [facility] Comment on above: Performed By: #### L 501.4021, L506.0400, L501.9520, L100.0100, L503.7505, L500.2500 #### [facility] [address] [place], [address] PCP Negative Normal < 25 ng/mL [facility] Comment on above: Performed By: #### L 501.4021, L506.0400, L501.9520, L100.0100, L503.7505, L500.2500 #### [facility] [address] [place], [address] THC Negative Normal < 50 ng/mL [facility] Comment on above: Performed By: #### L 501.4021, L506.0400, L501.9520, L100.0100, L503.7505, L500.2500 #### [facility] [address] [place], [address] Urine benzodiazepine levelOr dered By: Mitchell Lucero on 02-11-2025 Benzodiazepines Ql (U) Negative < 200 ng/mL [facility] Urine cocaine levelOrdered B y: Mitchell Lucero on 02-11-2025 Cocaine Ql (U) Negative < 300 ng/mL [facility] Urine jyvie-5-pfmmepqovdabik abinol (THC) measurementOrdered By: Mitchell Lucero on 02-11-2025 Cannabinoids Screen Ql (U) Negative < 50 ng/mL [facility] Urine phencyclidine (PCP) de tectionOrdered By: Mitchell Lucero on 02-11-2025 Phencyclidine Ql (U) Negative < 25 ng/mL [facility] Vitamin B12 ser/plasOrdered By: Mitchell Lucero on 02-11-2025 Cobalamin (Vitamin B12) [Mass/Vol] 573 pg/mL 180-914 [facility] fentaNYL Screen Ql (U)Ordere d By: Mitchell Lucero on 02-11-2025 Urine Fentanyl Screen Negative [facility] 12 Lead EKGon 02-10-2025 12 Lead EKG [facility] Cardiovascular Services [address] [place] [address] 12 Lead EKG 02/10/25 1808 MR#: [id number] Acct: [id number] Name: LATONYA ELDER Rep #: [id number] : 1970 54 From: Eric Flores MD [...] Abnormal ECG Confirmed by ERIC FLORES MD ([id number]), newspaper or periodical editor TESS PERRY ([id number]) on 02/11/2025 8:32:04 AM Referred By: Confirmed By: ERIC FLORES MD 02/11/25 0832 Date Eric Flores MD CC: Dr. Beka Bowie MD; Dr. Brennon Juarez DO; Dr. Jasbir Curry DO Signed Normal [facility] Absolute neutrophil countOrd ered By: Jasbir Curry on 02-10-2025 Neutrophils (Bld) [#/Vol] 5.8 10*3/uL 2.0-7.7 [facility] Anion gap in Serum or Plasma Ordered By: Jasbir Curry on 02-10-2025 Anion gap [Moles/Vol] 12 mmol/L 5-15 [facility] BUN/creatinine ratioOrdered By: Jasbir Curry on 02-10-2025 Urea nitrogen/Creatinine [Mass ratio] 22.0 mg/mg High - [facility] Base excess Calc (BldV) [Mol es/Vol]Ordered By: Jasbir Curry on 02-10-2025 Venous Blood Base Excess 3 mmol/L -1.0-3.5 [facility] Basic Metabolic Profile (BMP )on 02-10-2025 BUN/CRE 22.0 RATIO High 10- [facility] Comment on above: Performed By: #### L 501.4021, L506.0400, L501.9520, L100.0100, L503.7505, L500.2500 #### [facility] [address] [place], [address] Calcium [Mass/Vol] 9.1 mg/dL Normal 7.6-11.0 [facility] Comment on above: Performed By: #### L 501.4021, L506.0400, L501.9520, L100.0100, L503.7505, L500.2500 #### [facility] [address] [place], [address] Chloride [Moles/Vol] 102 mmol/L Normal 98-108 [facility] Comment on above: Performed By: #### L 501.4021, L506.0400, L501.9520, L100.0100, L503.7505, L500.2500 #### [facility] [address] [place], [address] CO2 [Moles/Vol] 23.1 mmol/L Normal 21.0-32.0 [facility] Comment on above: Performed By: #### L 501.4021, L506.0400, L501.9520, L100.0100, L503.7505, L500.2500 #### [facility] [address] [place], [address] Creatinine [Mass/Vol] 1.09 mg/dL Normal 0.70-1.20 [facility] Comment on above: Performed By: #### L 501.4021, L506.0400, L501.9520, L100.0100, L503.7505, L500.2500 #### [facility] [address] [place], [address] ECRCL 93.49 ml/min Normal 50-250 [facility] Comment on above: Performed By: #### L 501.4021, L506.0400, L501.9520, L100.0100, L503.7505, L500.2500 #### [facility] [address] [place], [address] GAP 12 Normal 5-15 [facility] Comment on above: Performed By: #### L 501.4021, L506.0400, L501.9520, L100.0100, L503.7505, L500.2500 #### [facility] [address] [place], [address] GFR/1.73 sq M.predicted among non-blacks MDRD (S/P/Bld) [Vol rate/Area] 81 mL/min/{1.73_m2} Normal >60 [facility] Comment on above: Result Comment: mL/m in/1.73m2 CKD-EPI Creatinine Equation (2020) Performed By: #### L 501.4021, L506.0400, L501.9520, L100.0100, L503.7505, L500.2500 #### [facility] [address] [place], [address] Glucose [Mass/Vol] 255 mg/dL High 70-99 [facility] Comment on above: Performed By: #### L 501.4021, L506.0400, L501.9520, L100.0100, L503.7505, L500.2500 #### [facility] [address] [place], [address] Potassium [Moles/Vol] 4.3 mmol/L Normal 3.3-5.1 [facility] Comment on above: Result Comment: Hemo lysis present, Results??could be affected. ?? Performed By: #### L 501.4021, L506.0400, L501.9520, L100.0100, L503.7505, L500.2500 #### [facility] [address] [place], [address] Sodium [Moles/Vol] 137 mmol/L Normal 133-145 [facility] Comment on above: Performed By: #### L 501.4021, L506.0400, L501.9520, L100.0100, L503.7505, L500.2500 #### [facility] [address] [place], [address] Urea nitrogen [Mass/Vol] 24 mg/dL High 4-19 [facility] Comment on above: Performed By: #### L 501.4021, L506.0400, L501.9520, L100.0100, L503.7505, L500.2500 #### [facility] [address] [place], [address] Basophil percentageOrdered B y: Jasbir Curry on 02-10-2025 Basophils/100 WBC (Bld) 0.8 % 0-1 [facility] Bedside Glucoseon 02-10-2025 FINGERSTICK GLU 234 mg/dL High 74-106 [facility] Comment on above: Result Comment: CARLOS BONILLA OF PATIENT CARE PER NURSING PROTOCOL Performed By: #### L 501.4021, L506.0400, L501.9520, L100.0100, L503.7505, L500.2500 #### [facility] [address] [place], [address] CBC W/Diff, Automatedon 01-18 Absolute Lymph 2.41 X10 3/uL Normal 0.83-4.51 [facility] Comment on above: Performed By: #### L 501.4021, L506.0400, L501.9520, L100.0100, L503.7505, L500.2500 #### [facility] [address] [place], [address] Absolute Neut 5.8 X10 3/uL Normal 2.0-7.7 [facility] Comment on above: Performed By: #### L 501.4021, L506.0400, L501.9520, L100.0100, L503.7505, L500.2500 #### [facility] [address] [place], [address] Basophils/100 WBC (Bld) 0.8 % Normal 0-1 [facility] Comment on above: Performed By: #### L 501.4021, L506.0400, L501.9520, L100.0100, L503.7505, L500.2500 #### [facility] [address] [place], [address] Eosinophils/100 WBC (Bld) 2.4 % Normal 0-5 [facility] Comment on above: Performed By: #### L 501.4021, L506.0400, L501.9520, L100.0100, L503.7505, L500.2500 #### [facility] [address] [place], [address] Erythrocyte distribution width (RBC) [Ratio] 13.9 % Normal 11.6-14.6 [facility] Comment on above: Performed By: #### L 501.4021, L506.0400, L501.9520, L100.0100, L503.7505, L500.2500 #### [facility] [address] [place], [address] Hematocrit (Bld) [Volume fraction] 41.1 % Normal 40-54 [facility] Comment on above: Performed By: #### L 501.4021, L506.0400, L501.9520, L100.0100, L503.7505, L500.2500 #### [facility] [address] [place], [address] Hemoglobin (Bld) [Mass/Vol] 13.5 g/dL Normal 13.0-16.5 [facility] Comment on above: Performed By: #### L 501.4021, L506.0400, L501.9520, L100.0100, L503.7505, L500.2500 #### [facility] [address] [place], [address] IG% 0.300 Normal 0.0-0.9 [facility] Comment on above: Result Comment: IG% - Immature Granulocytes (promyelocytes, myelocytes and metamyelocytes) > 1% indicates that a LEFT SHIFT is Present. Performed By: #### L 501.4021, L506.0400, L501.9520, L100.0100, L503.7505, L500.2500 #### [facility] [address] [place], [address] Lymphocytes/100 WBC (Bld) 25.5 % Normal 19-41 [facility] Comment on above: Performed By: #### L 501.4021, L506.0400, L501.9520, L100.0100, L503.7505, L500.2500 #### [facility] [address] [place], [address] MCH (RBC) [Entitic mass] 27.4 pg Normal 27.0-32.0 [facility] Comment on above: Performed By: #### L 501.4021, L506.0400, L501.9520, L100.0100, L503.7505, L500.2500 #### [facility] [address] [place], [address] MCHC (RBC) [Mass/Vol] 32.8 g/dL Normal 32-36 [facility] Comment on above: Performed By: #### L 501.4021, L506.0400, L501.9520, L100.0100, L503.7505, L500.2500 #### [facility] [address] [place], [address] MCV (RBC) [Entitic vol] 83.5 fL Normal 80-94 [facility] Comment on above: Performed By: #### L 501.4021, L506.0400, L501.9520, L100.0100, L503.7505, L500.2500 #### [facility] [address] [place], [address] Monocytes/100 WBC (Bld) 9.2 % Normal 0-10 [facility] Comment on above: Performed By: #### L 501.4021, L506.0400, L501.9520, L100.0100, L503.7505, L500.2500 #### [facility] [address] [place], [address] Neutrophils/100 WBC (Bld) 61.8 % Normal 47-70 [facility] Comment on above: Performed By: #### L 501.4021, L506.0400, L501.9520, L100.0100, L503.7505, L500.2500 #### [facility] [address] [place], [address] Nucleated RBC (Bld) [#/Vol] 0 10*3/uL Normal 0-5 [facility] Comment on above: Performed By: #### L 501.4021, L506.0400, L501.9520, L100.0100, L503.7505, L500.2500 #### [facility] [address] [place], [address] Platelet mean volume (Bld) [Entitic vol] 10.6 fL Normal 6.2-12.0 [facility] Comment on above: Performed By: #### L 501.4021, L506.0400, L501.9520, L100.0100, L503.7505, L500.2500 #### [facility] [address] [place], [address] Platelets (Bld) [#/Vol] 317 10*3/uL Normal 150-450 [facility] Comment on above: Performed By: #### L 501.4021, L506.0400, L501.9520, L100.0100, L503.7505, L500.2500 #### [facility] [address] [place], [address] RBC (Bld) [#/Vol] 4.92 10*6/uL Normal 4.6-6.2 [facility] Comment on above: Performed By: #### L 501.4021, L506.0400, L501.9520, L100.0100, L503.7505, L500.2500 #### [facility] [address] [place], [address] RDW SD 42.5 fl Normal 35.1-43.9 [facility] Comment on above: Performed By: #### L 501.4021, L506.0400, L501.9520, L100.0100, L503.7505, L500.2500 #### [facility] [address] [place], [address] WBC (Bld) [#/Vol] 9.4 10*3/uL Normal 4.4-11.0 [facility] Comment on above: Performed By: #### L 501.4021, L506.0400, L501.9520, L100.0100, L503.7505, L500.2500 #### [facility] [address] [facility] [place], [address] CO2 (BldV) [Moles/Vol]Ordere d By: Jasbir Curry on 02-10-2025 CO2 [Moles/Vol] 30 mmol/L 23-33 [facility] CO2 (BldV) [Partial pressure ]Ordered By: Jasbir Curry on 02-10-2025 Bed Mix Venous Bld PCO2 at Pat Temp 47.6 mmHg 41-51 [facility] Carbon dioxide, total [Moles /volume] in Central venous bloodOrdered By: Jasbir Curry on 02-10-2025 CO2 [Moles/Vol] 23.1 mmol/L 21.0-32.0 [facility] Chest PA and Lateralon 02-10 Chest PA and Lateral [facility] Imaging Services [address] [place] [address] Chest PA and Lateral MR#: [id number] Acct: [id number] Name: LATONYA ELDER Rep #: [id number] : 1970 M 54 From: Harvey Hassan i, MD PCP: Dr. Beka Bwoie MD Status: REG ER Study: Chest PA and Lateral Date of Exam: 02/10/25 Exam# [id number] Ordering Dr: Jasbir Curry DO PROCEDURE: CHEST [...] are new since prior examination. Reading Location: [id number] CC: Dr. Beka Bowie MD; Dr. Jasbir Curry DO Production Sanitizer: Signed Normal [facility] Chloride assayOrdered By: Cheng Curry on 02-10-2025 Chloride [Moles/Vol] 102 mmol/L 98-108 [facility] Emergency Department Summary on 02-10-2025 Emergency Department Summary [facility] Medical Records Department [address] [place] [address] Emergency Department Summary 02/10/25 MR#: [id number] Acct: [id number] Name: LATONYA ELDER Rep #: [id number] : 1970 54 From: Jasbir Curry DO [...] his inhalers and other medications as prescribed [facility] Medical History History of DVT (deep vein [...] elevation myocardial infarction (NSTEMI) (11/22/20) Atherosclerosis of [place] coronary artery of [place] heart without angina pectoris Non-ST elevation [place] (NSTEMI) Home Medications ???Medication ???Instructions ???Recorded ???Last [...] carvedilol 25 mg tablet 25 [place] 1 12/28/23 02/10/25 Rx tabs clonidine [...] Current every (more content not included)... Normal [facility] Eosinophil percentageOrdered By: Jasbir Curry on 02-10-2025 Eosinophils/100 WBC (Bld) 2.4 % 0-5 [facility] Erythrocyte distribution wid th ratioOrdered By: Jasbir Curry on 02-10-2025 Erythrocyte distribution width (RBC) [Ratio] 13.9 % 11.6-14.6 [facility] Erythrocyte distribution wid th standard deviationOrdered By: Jasbir Curry on 02-10-2025 Erythrocyte distribution width (RBC) [Entitic vol] 42.5 fL 35.1-43.9 [facility] Estimation of creatinine lauren aranceOrdered By: Jasbir Curry on 02-10-2025 Estimated Creatinine Clearance Calc 93.49 ml/min 50-250 [facility] GFR/1.73 sq M.predicted zachery g non-blacks MDRD (S/P/Bld) [Vol rate/Area]Ordered By: Jasbir Curry on 02-10-2025 Estimated GFR (MDRD) Non-Af Amer 81 >60 [facility] Comment on above: mL/min/1.73m2 CKD-EP I Creatinine Equation (2020) [facility] deOrdered By: Jasbir Curry on 02-10-2025 Bedside Glucose (Misc Panel) 234 mg/dL High 74-106 [facility] Comment on above: MANAGEMENT OF PATIEN T CARE PER NURSING PROTOCOL H AND P Exam - [facility] 02-10-2025 H&P Exam - Hospitalist [facility] Medical Records Department [address] [place] [address] H P Exam - Hospitalist 02/10/25 2311 MR#: [id number] Acct: [id number] Name: LATONYA ELDER Rep #: [id number] : 1970 54 From: Mitchell Deras DO PCP: Dr. Beka Bowie MD Status:ADM IN Location: ICU [id number] HPI - General General Date of Admission: [...] troponin and Respiratory Insufficiency who presents to [facility] ER complaining of who presents to [facility] ER complaining of slurred speech and brain fog since Saturday, February 08, 2025. Mr. Elder and his significant other reported that his symptoms have been mnoked-qmd-ywooqa for the past several days and since [...] is expected to extend beyond 2 midnights. [facility] Medical History History of DVT (deep vein thrombosis) Respiratory insufficiency Elevated troponin Acute bronchitis COPD exacerb (more content not included)... Normal [facility] Hematocrit Auto (Bld) [Volum e fraction]Ordered By: Jasbir Curry on 02-10-2025 Hematocrit (Bld) [Volume fraction] 41.1 % 40-54 [facility] Hemoglobin measurementOrdere d By: Jasbir Curry on 02-10-2025 Hemoglobin (Bld) [Mass/Vol] 13.5 g/dL 13.0-16.5 [facility] [facility]ocytes/100 WB C Auto (Bld)Ordered By: Jasbir Curry on 02-10-2025 Immature granulocytes/100 WBC (Bld) 0.300 % 0.0-0.9 [facility] Comment on above: IG% - Immature Granu locytes (promyelocytes, myelocytes and metamyelocytes) > 1% indicates that a LEFT SHIFT is Present. L499.0042on 02-10-2025 Trop T High Sen 24 ng/L High <=22 [facility] Comment on above: Performed By: #### L 501.4021, L506.0400, L501.9520, L100.0100, L503.7505, L500.2500 #### [facility] Laboratory [address] [place], [address] L499.0043on 02-10-2025 Trop T High Sen Normal <=22 [facility] Comment on above: Result Comment: [place] ellgardenia via OM: Ordered Performed By: #### L 501.4021, L506.0400, L501.9520, L100.0100, L503.7505, L500.2500 #### [facility] [address] [place], [address] L501.4021on 02-10-2025 Trop T High Sen 25 ng/L High <=22 [facility] Comment on above: Result Comment: Hemo lysis present, Results??could be affected. ?? Performed By: #### L 501.4021, L506.0400, L501.9520, L100.0100, L503.7505, L500.2500 #### [facility] [address] [place], [address] L503.7505on 02-10-2025 Natriuretic peptide B (Bld) [Mass/Vol] 709 pg/mL Normal <=900 [facility] Comment on above: Result Comment: Hear t Failure Unlikely: < 300 pg/mL Heart Failure Likely < 50 Years: > 450 pg/mL 50-75 Years: > 900 pg/mL >75 Years: > 1800 pg/mL Performed By: #### L 501.4021, L506.0400, L501.9520, L100.0100, L503.7505, L500.2500 #### [facility] [address] [place], [address] Laboratory - Chemistry and C hemistry - challengeOrdered By: Jasbir Curry on 02-10-2025 Natriuretic peptide B (Bld) [Mass/Vol] 709 pg/mL <900 [facility] Comment on above: Heart Failure Unlike ly: < 300 pg/mLHeart Failure Likely< 50 Years: > 450 pg/mL50-75 Years: > 900 pg/mL>75 Years: > 1800 pg/mL Lactic Acidon 02-10-2025 Lactate [Moles/Vol] 1.9 mmol/L Normal 0.0-2.0 [facility] Comment on above: Order Comment: Y Performed By: #### L 501.4021, L506.0400, L501.9520, L100.0100, L503.7505, L500.2500 #### [facility] [address] [place], [address] Lactic acid measurementOrder ed By: Jasbir Curry on 02-10-2025 Lactate [Moles/Vol] 1.9 mmol/L 0.0-2.0 [facility] Lymphocytes Auto (Unsp spec) [#/Vol]Ordered By: Jasbir Curry on 02-10-2025 Lymphocytes (Bld) [#/Vol] 2.41 10*3/uL 0.83-4.51 [facility] Lymphocytes/100 WBC Auto (Un sp spec)Ordered By: Jasbir Curry on 02-10-2025 Lymphocytes/100 WBC (Bld) 25.5 % 19-41 [facility] MCV (mean corpuscular volume ) determinationOrdered By: Jasbir Curry on 02-10-2025 MCV (RBC) [Entitic vol] 83.5 fL 80-94 [facility] Mean corpuscular hemoglobin (MCH) determinationOrdered By: Jasbir Curry on 02-10-2025 MCH (RBC) [Entitic mass] 27.4 pg 27.0-32.0 [facility] Mean corpuscular hemoglobin concentration (MCHC) determinationOrdered By: Jasbir Curry on 02-10-2025 MCHC (RBC) [Mass/Vol] 32.8 g/dL 32-36 [facility] Mean platelet volume determi nationOrdered By: Jasbir Curry on 02-10-2025 Platelet mean volume (Bld) [Entitic vol] 10.6 fL 6.2-12.0 [facility] Monocyte percentageOrdered B y: Jasbir Curry on 02-10-2025 Monocytes/100 WBC (Bld) 9.2 % 0-10 [facility] Neutrophil percentageOrdered By: Jasbir Curry on 02-10-2025 Neutrophils/100 WBC (Bld) 61.8 % 47-70 [facility] No Panel InformationOrdered By: Jasbir Curry on 02-10-2025 Blood Gas Sample Site Not entered [facility] Blood Gas Specimen Type TAMIKA [facility] Oxygen Delivery Device Room Air [facility] Troponin T High Sensitivity 25 ng/L High <22 [facility] Comment on above: Hemolysis present, R esults could be affected. Nucleated red blood cell per centageOrdered By: Jasbir Curry on 02-10-2025 Nucleated RBC/100 WBC (Bld) [Ratio] 0 % 0-5 [facility] Oxygen (BldV) [Partial press ure]Ordered By: Jasbir Curry on 02-10-2025 Venous Blood Partial Pressure O2 52 mmHg High 25-40 [facility] Platelet countOrdered By: Cheng Curry on 02-10-2025 Platelets (Bld) [#/Vol] 317 10*3/uL 150-450 [facility] Potassium (Unsp spec) [Mass/ Vol]Ordered By: Jasbir uCrry on 02-10-2025 Potassium [Moles/Vol] 4.3 mmol/L 3.3-5.1 [facility] Comment on above: Hemolysis present, R esults could be affected. RBC Auto (Bld) [#/Vol]Ordere d By: Jasbir Curry on 02-10-2025 RBC (Bld) [#/Vol] 4.92 10*6/uL 4.6-6.2 [facility] STROKE Brain/Head without Co nton 02-10-2025 STROKE Brain/Head without Cont [facility] Imaging Services [address] [place] [address] STROKE Brain/Head without Cont MR#: [id number] Acct: [id number] Name: JAELLATONYA Matt Rep #: [id number] : 1970 M 54 From: Harvey Hassan i, MD PCP: Dr. Beka Bowie MD Status: REG ER Study: STROKE Brain/Head without Cont Date of Exam: 0 02/10/25 Exam# [id number] Ordering Dr: Jasbri Curry DO EXAM: CT head without contrast. [...] 8:00 pm with readback verification. Reading Location: [id number] CC: Dr. Beka Bowie MD; Dr. Jasbir Curry DO Production Sanitizer: Signed Normal [facility] STROKE CTA Head AND Neck W/C onon 02-10-2025 STROKE CTA Head AND Neck W/Con [facility] Imaging Services [address] [place] [id number] STROKE CTA Head AND Neck W/Con MR#: [id number] Acct: [id number] Name: LATONYA ELDER Rep #: [id number] : 1970 M 54 From: Elsy Das nd, MD PCP: Dr. Beka Bowie MD Status: REG ER Study: STROKE CTA Head AND Neck W/Con Date of Exam: 0 02/10/25 Exam# [id number] Ordering Dr: Jasbir Curry DO PROCEDURE: STROKE [...] caliber. There is origin of the right YARD JACKER. The middle and posterior cerebral arteries are [...] at 8:50 pm on 02/10/25. Reading Location: [facility] CC: Dr. Beka Bowie MD; Dr. Jasbir Curry, Production Sanitizer: Signed Normal [facility] Serum creatinine measurement (mass/volume)Ordered By: Jasbir Curry on 02-10-2025 Creatinine [Mass/Vol] 1.09 mg/dL 0.70-1.20 [facility] Serum glucose measurement (m ass/volume)Ordered By: Jasbir Curry on 02-10-2025 Glucose [Mass/Vol] 255 mg/dL High 70-99 [facility] Serum or plasma calcium jessica urement (mass/volume)Ordered By: Jasbir Curry on 02-10-2025 Calcium [Mass/Vol] 9.1 mg/dL 7.6-11.0 [facility] Serum or plasma urea nitroge n measurement (mass/volume)Ordered By: Jasbir Curry on 02-10-2025 Urea nitrogen [Mass/Vol] 24 mg/dL High 4-19 [facility] Sodium levelOrdered By: Trey Curry on 02-10-2025 Sodium [Moles/Vol] 137 mmol/L 133-145 [facility] T4 Free Directon 02-10-2025 T4 FREE DIRECT 1.20 ng/dL Normal 0.76-1.46 [facility] Comment on above: Performed By: #### L 501.4021, L506.0400, L501.9520, L100.0100, L503.7505, L500.2500 #### [facility] [address] [place], [address] T4 freeOrdered By: Jasbir jennings on 02-10-2025 Free T4 [Mass/Vol] 1.20 ng/dL 0.76-1.46 [facility] TSH DL <= 0.005 mIU/L QnOrde red By: Jasbir Curry on 02-10-2025 Thyroid Stimulating Hormone (TSH) 3.160 uIU/mL 0.300-4.200 [facility] Thyroid Stim Hormone (TSH)on 02-10-2025 TSH 3.160 uIU/mL Normal 0.300-4.200 [facility] Comment on above: Performed By: #### L 501.4021, L506.0400, L501.9520, L100.0100, L503.7505, L500.2500 #### [facility] [address] [place], [address] Troponin T.cardiac High sens itivity method [Mass/Vol]Ordered By: Jasbir Curry on 02-10-2025 Troponin T High Sensitivity 2 Hour 24 ng/L High <22 [facility] Venous Blood Gason Blood Gas Type TAMIKA Normal [facility] Comment on above: Performed By: #### L 501.4021, L506.0400, L501.9520, L100.0100, L503.7505, L500.2500 #### [facility] [address] [place], [address] CO2 [Moles/Vol] 30 mmol/L Normal 23-33 [facility] Comment on above: Performed By: #### L 501.4021, L506.0400, L501.9520, L100.0100, L503.7505, L500.2500 #### [facility] [address] [place], [address] HCO3 (Bld) [Moles/Vol] 28 mmol/L High 22-26 [facility] Comment on above: Performed By: #### L 501.4021, L506.0400, L501.9520, L100.0100, L503.7505, L500.2500 #### [facility] [address] [place], [address] O2 Delivery Dev Room Air Normal [facility] Comment on above: Performed By: #### L 501.4021, L506.0400, L501.9520, L100.0100, L503.7505, L500.2500 #### [facility] [address] [place], [address] SITE Not entered Normal [facility] Comment on above: Performed By: #### L 501.4021, L506.0400, L501.9520, L100.0100, L503.7505, L500.2500 #### [facility] [address] [place], [address] VBG BE 3 mmol/L Normal -1.0-3.5 [facility] Comment on above: Performed By: #### L 501.4021, L506.0400, L501.9520, L100.0100, L503.7505, L500.2500 #### [facility] [address] [place], [address] VBG pCO2 47.6 mmHg Normal 41-51 [facility] Comment on above: Performed By: #### L 501.4021, L506.0400, L501.9520, L100.0100, L503.7505, L500.2500 #### [facility] [address] [place], [address] VBG pH 7.38 Normal 7.32-7.42 [facility] Comment on above: Performed By: #### L 501.4021, L506.0400, L501.9520, L100.0100, L503.7505, L500.2500 #### [facility] [address] [place], [address] VBG PO2 52 mmHg High 25-40 [facility] Comment on above: Performed By: #### L 501.4021, L506.0400, L501.9520, L100.0100, L503.7505, L500.2500 #### [facility] [address] [place], [address] VBG SO2 85 High 50-70 [facility] Comment on above: Performed By: #### L 501.4021, L506.0400, L501.9520, L100.0100, L503.7505, L500.2500 #### [facility] [address] [place], [address] Venous blood bicarbonate adria surementOrdered By: Jasbir Curry on 02-10-2025 HCO3 (Bld) [Moles/Vol] 28 mmol/L High 22-26 [facility] Venous blood oxygen saturati on measurementOrdered By: Jasbir Curry on 02-10-2025 Oxygen saturation in Blood 85 % High 50-70 [facility] White blood cell (WBC) count Ordered By: Jasbir Curry on 02-10-2025 WBC (Bld) [#/Vol] 9.4 10*3/uL 4.4-11.0 [facility] pH (BldV)Ordered By: Jasbir thomas on 02-10-2025 Venous Blood pH 7.38 7.32-7.42 [facility] Vitamin D 1,25-Dihydroxyon 1 12-14-2023 VIT D 1,25 DIHY 45.5 pg/mL Normal 24.8-81.5 [facility] Comment on above: Result Comment: Perf ormed at: [facility] [id number] Power Shovel Operator Helper: Saundra Anderson MD, Phone: [phone] Performed By: #### L 501.4021, L506.0400, L501.9520, L100.0100, L503.7505, L500.2500 #### [facility] [address] [place], [address] Basic Metabolic Profile (BMP )on 10-13-2024 BUN/CRE 32.6 RATIO High 10-20 [facility] Comment on above: Performed By: #### L 501.4021, L506.0400, L501.9520, L100.0100, L503.7505, L500.2500 #### [facility] [address] [place], [address] CA,Total 8.9 mg/dL Normal 8.5-10.1 [facility] Comment on above: Performed By: #### L 501.4021, L506.0400, L501.9520, L100.0100, L503.7505, L500.2500 #### [facility] [address] [place], [address] Chloride [Moles/Vol] 105 mmol/L Normal 98-107 [facility] Comment on above: Performed By: #### L 501.4021, L506.0400, L501.9520, L100.0100, L503.7505, L500.2500 #### [facility] [address] [place], [address] CO2 [Moles/Vol] 26.0 mmol/L Normal 21.0-32.0 [facility] Comment on above: Performed By: #### L 501.4021, L506.0400, L501.9520, L100.0100, L503.7505, L500.2500 #### [facility] [address] [place], [address] Creatinine [Mass/Vol] 1.32 mg/dL High 0.70-1.30 [facility] Comment on above: Result Comment: The validity of the calculated GFR GFRAA in patients over 70 years has not been determined. Clinical correlation is essential. Performed By: #### L 501.4021, L506.0400, L501.9520, L100.0100, L503.7505, L500.2500 #### [facility] [address] [place], [address] ECRCL 78.14 ml/min Normal [facility] Comment on above: Performed By: #### L 501.4021, L506.0400, L501.9520, L100.0100, L503.7505, L500.2500 #### [facility] [address] [place], [address] EST GFR - AA 73 mL/min Normal >60 [facility] Comment on above: Result Comment: Afri can Turkish GFR Calc Performed By: #### L 501.4021, L506.0400, L501.9520, L100.0100, L503.7505, L500.2500 #### [facility] [address] [place], [address] GAP 4 Low 5-15 [facility] Comment on above: Performed By: #### L 501.4021, L506.0400, L501.9520, L100.0100, L503.7505, L500.2500 #### [facility] [address] [place], [address] GFR/1.73 sq M.predicted among non-blacks MDRD (S/P/Bld) [Vol rate/Area] 60 mL/min/{1.73_m2} Normal >60 [facility] Comment on above: Result Comment: Non- GFR Calc Performed By: #### L 501.4021, L506.0400, L501.9520, L100.0100, L503.7505, L500.2500 #### [facility] [address] [place], [address] Glucose [Mass/Vol] 271 mg/dL High 74-106 [facility] Comment on above: Result Comment: Gluc ose result greater than or equal to 200 mg/dL suggests DIABETES MELLITUS per A.D.A. criteria. Performed By: #### L 501.4021, L506.0400, L501.9520, L100.0100, L503.7505, L500.2500 #### [facility] [address] [place], [address] Potassium [Moles/Vol] 4.6 mmol/L Normal 3.5-5.1 [facility] Comment on above: Result Comment: Slig ht Hemolysis, Result may be falsely increased. Performed By: #### L 501.4021, L506.0400, L501.9520, L100.0100, L503.7505, L500.2500 #### [facility] [address] [place], [address] Sodium [Moles/Vol] 135 mmol/L Low 136-145 [facility] Comment on above: Performed By: #### L 501.4021, L506.0400, L501.9520, L100.0100, L503.7505, L500.2500 #### [facility] [address] [place], [address] Urea nitrogen [Mass/Vol] 43 mg/dL High 7-18 [facility] Comment on above: Performed By: #### L 501.4021, L506.0400, L501.9520, L100.0100, L503.7505, L500.2500 #### [facility] [address] [place], [address] Bedside Glucoseon 10-13-2024 FINGERSTICK GLU 370 mg/dL High 74-106 [facility] Comment on above: Result Comment: CARLOS GEMENT OF PATIENT CARE PER NURSING PROTOCOL Performed By: #### L 501.4021, L506.0400, L501.9520, L100.0100, L503.7505, L500.2500 #### [facility] [address] [place], [address] FINGERSTICK GLU 262 mg/dL High 74-106 [facility] Comment on above: Result Comment: CARLOS GEMENT OF PATIENT CARE PER NURSING PROTOCOL Performed By: #### L 501.4021, L506.0400, L501.9520, L100.0100, L503.7505, L500.2500 #### [facility] [address] [place], [address] CBC W/Diff, Automatedon 11-2 5-2023 Absolute Lymph 1.69 X10 3/uL Normal 0.83-4.51 [facility] Comment on above: Performed By: #### L 501.4021, L506.0400, L501.9520, L100.0100, L503.7505, L500.2500 #### [facility] [address] [place], [address] Absolute Neut 17.9 X10 3/uL High 2.0-7.7 [facility] Comment on above: Performed By: #### L 501.4021, L506.0400, L501.9520, L100.0100, L503.7505, L500.2500 #### [facility] [address] [place], [address] Basophils/100 WBC (Bld) 0.1 % Normal 0-1 [facility] Comment on above: Performed By: #### L 501.4021, L506.0400, L501.9520, L100.0100, L503.7505, L500.2500 #### [facility] [address] [place], [address] Eosinophils/100 WBC (Bld) 0.0 % Normal 0-5 [facility] Comment on above: Performed By: #### L 501.4021, L506.0400, L501.9520, L100.0100, L503.7505, L500.2500 #### [facility] [address] [place], [address] Erythrocyte distribution width (RBC) [Ratio] 13.2 % Normal 11.6-14.6 [facility] Comment on above: Performed By: #### L 501.4021, L506.0400, L501.9520, L100.0100, L503.7505, L500.2500 #### [facility] [address] [place], [address] Hematocrit (Bld) [Volume fraction] 40.8 % Normal 40-54 [facility] Comment on above: Performed By: #### L 501.4021, L506.0400, L501.9520, L100.0100, L503.7505, L500.2500 #### [facility] [address] [place], [address] Hemoglobin (Bld) [Mass/Vol] 12.9 g/dL Low 13.0-16.5 [facility] Comment on above: Performed By: #### L 501.4021, L506.0400, L501.9520, L100.0100, L503.7505, L500.2500 #### [facility] [address] [place], [address] IG% 1.000 High 0.0-0.9 [facility] Comment on above: Result Comment: IG% - Immature Granulocytes (promyelocytes, myelocytes and metamyelocytes) > 1% indicates that a LEFT SHIFT is Present. Performed By: #### L 501.4021, L506.0400, L501.9520, L100.0100, L503.7505, L500.2500 #### [facility] [address] [place], [address] Lymphocytes/100 WBC (Bld) 8.3 % Low 19-41 [facility] Comment on above: Performed By: #### L 501.4021, L506.0400, L501.9520, L100.0100, L503.7505, L500.2500 #### [facility] [address] [place], [address] MCH (RBC) [Entitic mass] 27.7 pg Normal 27.0-32.0 [facility] Comment on above: Performed By: #### L 501.4021, L506.0400, L501.9520, L100.0100, L503.7505, L500.2500 #### [facility] [address] [place], [address] MCHC (RBC) [Mass/Vol] 31.6 g/dL Low 32-36 [facility] Comment on above: Performed By: #### L 501.4021, L506.0400, L501.9520, L100.0100, L503.7505, L500.2500 #### [facility] [address] [place], [address] MCV (RBC) [Entitic vol] 87.6 fL Normal 80-94 [facility] Comment on above: Performed By: #### L 501.4021, L506.0400, L501.9520, L100.0100, L503.7505, L500.2500 #### [facility] [address] [place], [address] Monocytes/100 WBC (Bld) 3.0 % Normal 0-10 [facility] Comment on above: Performed By: #### L 501.4021, L506.0400, L501.9520, L100.0100, L503.7505, L500.2500 #### [facility] [address] [place], [address] Neutrophils/100 WBC (Bld) 87.6 % High 47-70 [facility] Comment on above: Performed By: #### L 501.4021, L506.0400, L501.9520, L100.0100, L503.7505, L500.2500 #### [facility] [address] [place], [address] Nucleated RBC (Bld) [#/Vol] 0 10*3/uL Normal 0-5 [facility] Comment on above: Performed By: #### L 501.4021, L506.0400, L501.9520, L100.0100, L503.7505, L500.2500 #### [facility] [address] [place], [address] Platelet mean volume (Bld) [Entitic vol] 10.9 fL Normal 6.2-12.0 [facility] Comment on above: Performed By: #### L 501.4021, L506.0400, L501.9520, L100.0100, L503.7505, L500.2500 #### [facility] [address] [place], [address] Platelets (Bld) [#/Vol] 375 10*3/uL Normal 150-450 [facility] Comment on above: Performed By: #### L 501.4021, L506.0400, L501.9520, L100.0100, L503.7505, L500.2500 #### [facility] [address] [place], [address] RBC (Bld) [#/Vol] 4.66 10*6/uL Normal 4.6-6.2 [facility] Comment on above: Performed By: #### L 501.4021, L506.0400, L501.9520, L100.0100, L503.7505, L500.2500 #### [facility] [address] [place], [address] RDW SD 42.4 fl Normal 35.1-43.9 [facility] Comment on above: Performed By: #### L 501.4021, L506.0400, L501.9520, L100.0100, L503.7505, L500.2500 #### [facility] [address] [place], [address] WBC (Bld) [#/Vol] 20.4 10*3/uL High 4.4-11.0 [facility] Comment on above: Performed By: #### L 501.4021, L506.0400, L501.9520, L100.0100, L503.7505, L500.2500 #### [facility] [address] [place], [address] Discharge Instructionon 09-20 Discharge Instruction [facility] Medical Records Department [address] [place] [address] Instructions for Home/Discharge Instructions 10/13/24 1303 MR#: [id number] Acct: [id number] Name: LATONYA ELDER Rep #: [id number] : 1970 54 From: Manuelito Green DO [...] Up: Mal Mcdonnell PA [Med Staff - [facility] Practice Prof] - 10/29/24 10:30 am 10/13/24 1332 Manuelito Green DO CC: Dr. Mitchell Deras DO; Dr. Beka Bowie MD; Dr. Nasim Leblanc MD Signed Normal [facility] Respiratory Cultureon 2023 RESPC SENT LABEL TO PCU FOR COLLECTION Mixed normal respiratory katya. No Haemophilus, Streptococcus pneumoniae, beta-hemolytic Streptococcus or Staphylococcus aureus isolated. [facility] Comment on above: Performed By: #### L 503.6005, L300.3900, L501.5425, L100.0100, L500.2500, L300.4310, L503.6620 #### [facility] [address] [facility] [place], [address] 12 Lead EKGon 10-12-2024 12 Lead EKG [facility] Cardiovascular Services [address] [place] [address] 12 Lead EKG 10/12/24 1446 MR#: [id number] Acct: [id number] Name: LATONYA ELDER Rep #: [id number] : 1970 54 From: Harvey Murphy MD Attending Dr: Dr. Manuelito Green DO Status: A DM IN Ordering Dr: Nasim Leblanc MD Date: 10/12/24 Location: [facility] Sex: M C Admitted: 10/11/24 Test Reason [...] DATA IS UNCONFIRMED Confirmed by Harvey Murphy ([id number]), newspaper or periodical editor EVELIO CURRY ([id number]) on 10/13/2024 9:57:29 AM Referred By: Confirmed By: Harvey Murphy 10/13/24 0957 Date Harvey Murphy MD CC: Dr. Beka Bowie MD; Dr. Manuelito Green DO; Dr. Nasim Leblanc MD Signed Normal [facility] BNP,B-Type NATRIURETIC PEPTI [place] 10-12-2024 Natriuretic peptide B (Bld) [Mass/Vol] 148.6 pg/mL High 0-100 [facility] Comment on above: Performed By: #### L 501.4021, L506.0400, L501.9520, L100.0100, L503.7505, L500.2500 #### [facility] [address] [place], [address] Bedside Glucoseon 10-12-2024 FINGERSTICK GLU 197 mg/dL High 74-106 [facility] Comment on above: Result Comment: CARLOS GEMENT OF PATIENT CARE PER NURSING PROTOCOL Performed By: #### L 501.4021, L506.0400, L501.9520, L100.0100, L503.7505, L500.2500 #### [facility] [address] [place], [address] FINGERSTICK GLU 79 mg/dL Normal 74-106 [facility] Comment on above: Result Comment: CARLOS GEMENT OF PATIENT CARE PER NURSING PROTOCOL Performed By: #### L 501.4021, L506.0400, L501.9520, L100.0100, L503.7505, L500.2500 #### [facility] [address] [place], [address] FINGERSTICK GLU 229 mg/dL High 74-106 [facility] Comment on above: Result Comment: CARLOS GEMENT OF PATIENT CARE PER NURSING PROTOCOL Performed By: #### L 501.4021, L506.0400, L501.9520, L100.0100, L503.7505, L500.2500 #### [facility] [address] [place], [address] FINGERSTICK GLU 338 mg/dL High 74-106 [facility] Comment on above: Result Comment: CARLOS GEMENT OF PATIENT CARE PER NURSING PROTOCOL Performed By: #### L 501.4021, L506.0400, L501.9520, L100.0100, L503.7505, L500.2500 #### [facility] [address] [place], [address] FINGERSTICK GLU 448 mg/dL High 74-106 [facility] Comment on above: Result Comment: CARLOS GEMENT OF PATIENT CARE PER NURSING PROTOCOL Performed By: #### L 501.4021, L506.0400, L501.9520, L100.0100, L503.7505, L500.2500 #### [facility] [address] [place], [address] FINGERSTICK GLU 342 mg/dL High 74-106 [facility] Comment on above: Result Comment: CARLOS GEMENT OF PATIENT CARE PER NURSING PROTOCOL Performed By: #### L 501.4021, L506.0400, L501.9520, L100.0100, L503.7505, L500.2500 #### [facility] [address] [place], [address] CBC W/Diff, Automatedon 09-20 Absolute Lymph 1.49 X10 3/uL Normal 0.83-4.51 [facility] Comment on above: Performed By: #### L 501.4021, L506.0400, L501.9520, L100.0100, L503.7505, L500.2500 #### [facility] [address] [place], [address] Absolute Neut 12.0 X10 3/uL High 2.0-7.7 [facility] Comment on above: Performed By: #### L 501.4021, L506.0400, L501.9520, L100.0100, L503.7505, L500.2500 #### [facility] [address] [place], [address] Basophils/100 WBC (Bld) 0.0 % Normal 0-1 [facility] Comment on above: Performed By: #### L 501.4021, L506.0400, L501.9520, L100.0100, L503.7505, L500.2500 #### [facility] [address] [place], [address] Eosinophils/100 WBC (Bld) 0.0 % Normal 0-5 [facility] Comment on above: Performed By: #### L 501.4021, L506.0400, L501.9520, L100.0100, L503.7505, L500.2500 #### [facility] [address] [place], [address] Erythrocyte distribution width (RBC) [Ratio] 13.0 % Normal 11.6-14.6 [facility] Comment on above: Performed By: #### L 501.4021, L506.0400, L501.9520, L100.0100, L503.7505, L500.2500 #### [facility] [address] [place], [address] Hematocrit (Bld) [Volume fraction] 40.3 % Normal 40-54 [facility] Comment on above: Performed By: #### L 501.4021, L506.0400, L501.9520, L100.0100, L503.7505, L500.2500 #### [facility] [address] [place], [address] Hemoglobin (Bld) [Mass/Vol] 12.9 g/dL Low 13.0-16.5 [facility] Comment on above: Performed By: #### L 501.4021, L506.0400, L501.9520, L100.0100, L503.7505, L500.2500 #### [facility] [address] [place], [address] IG% 0.900 Normal 0.0-0.9 [facility] Comment on above: Result Comment: IG% - Immature Granulocytes (promyelocytes, myelocytes and metamyelocytes) > 1% indicates that a LEFT SHIFT is Present. Performed By: #### L 501.4021, L506.0400, L501.9520, L100.0100, L503.7505, L500.2500 #### [facility] [address] [place], [address] Lymphocytes/100 WBC (Bld) 10.6 % Low 19-41 [facility] Comment on above: Performed By: #### L 501.4021, L506.0400, L501.9520, L100.0100, L503.7505, L500.2500 #### [facility] [address] [place], [address] MCH (RBC) [Entitic mass] 27.6 pg Normal 27.0-32.0 [facility] Comment on above: Performed By: #### L 501.4021, L506.0400, L501.9520, L100.0100, L503.7505, L500.2500 #### [facility] [address] [place], [address] MCHC (RBC) [Mass/Vol] 32.0 g/dL Normal 32-36 [facility] Comment on above: Performed By: #### L 501.4021, L506.0400, L501.9520, L100.0100, L503.7505, L500.2500 #### [facility] [address] [place], [address] MCV (RBC) [Entitic vol] 86.1 fL Normal 80-94 [facility] Comment on above: Performed By: #### L 501.4021, L506.0400, L501.9520, L100.0100, L503.7505, L500.2500 #### [facility] [address] [place], [address] Monocytes/100 WBC (Bld) 3.6 % Normal 0-10 [facility] Comment on above: Performed By: #### L 501.4021, L506.0400, L501.9520, L100.0100, L503.7505, L500.2500 #### [facility] [address] [place], [address] Neutrophils/100 WBC (Bld) 84.9 % High 47-70 [facility] Comment on above: Performed By: #### L 501.4021, L506.0400, L501.9520, L100.0100, L503.7505, L500.2500 #### [facility] [address] [place], [address] Nucleated RBC (Bld) [#/Vol] 0 10*3/uL Normal 0-5 [facility] Comment on above: Performed By: #### L 501.4021, L506.0400, L501.9520, L100.0100, L503.7505, L500.2500 #### [facility] [address] [place], [address] Platelet mean volume (Bld) [Entitic vol] 11.1 fL Normal 6.2-12.0 [facility] Comment on above: Performed By: #### L 501.4021, L506.0400, L501.9520, L100.0100, L503.7505, L500.2500 #### [facility] [address] [place], [address] Platelets (Bld) [#/Vol] 378 10*3/uL Normal 150-450 [facility] Comment on above: Performed By: #### L 501.4021, L506.0400, L501.9520, L100.0100, L503.7505, L500.2500 #### [facility] [address] [place], [address] RBC (Bld) [#/Vol] 4.68 10*6/uL Normal 4.6-6.2 [facility] Comment on above: Performed By: #### L 501.4021, L506.0400, L501.9520, L100.0100, L503.7505, L500.2500 #### [facility] [address] [place], [address] RDW SD 40.6 fl Normal 35.1-43.9 [facility] Comment on above: Performed By: #### L 501.4021, L506.0400, L501.9520, L100.0100, L503.7505, L500.2500 #### [facility] [address] [place], [address] WBC (Bld) [#/Vol] 14.1 10*3/uL High 4.4-11.0 [facility] Comment on above: Performed By: #### L 501.4021, L506.0400, L501.9520, L100.0100, L503.7505, L500.2500 #### [facility] [address] [place], [address] Comprehensive Metabolic Prof ilon 10-12-2024 Albumin [Mass/Vol] 2.7 g/dL Low 3.2-5.0 [facility] Comment on above: Performed By: #### L 501.4021, L506.0400, L501.9520, L100.0100, L503.7505, L500.2500 #### [facility] [address] [place], [address] Albumin/Globulin [Mass ratio] 0.6 {ratio} Low 0.9-2.4 [facility] Comment on above: Performed By: #### L 501.4021, L506.0400, L501.9520, L100.0100, L503.7505, L500.2500 #### [facility] [address] [place], [address] ALK P 87 U/L Normal 45-117 [facility] Comment on above: Performed By: #### L 501.4021, L506.0400, L501.9520, L100.0100, L503.7505, L500.2500 #### [facility] [address] [place], [address] ALT [Catalytic activity/Vol] 20 U/L Normal 16-61 [facility] Comment on above: Performed By: #### L 501.4021, L506.0400, L501.9520, L100.0100, L503.7505, L500.2500 #### [facility] [address] [place], [address] AST [Catalytic activity/Vol] 7 U/L Low 15-37 [facility] Comment on above: Performed By: #### L 501.4021, L506.0400, L501.9520, L100.0100, L503.7505, L500.2500 #### [facility] [address] [place], [address] Bilirubin [Mass/Vol] 0.40 mg/dL Normal 0.20-1.00 [facility] Comment on above: Result Comment: For patients on eltrombopag therapy, use of Dimension [place] TBIL is not recommended. Performed By: #### L 501.4021, L506.0400, L501.9520, L100.0100, L503.7505, L500.2500 #### [facility] [address] [place], [address] BUN/CRE 27.0 RATIO High 10-20 [facility] Comment on above: Performed By: #### L 501.4021, L506.0400, L501.9520, L100.0100, L503.7505, L500.2500 #### [facility] [address] [place], [address] CA,Total 9.2 mg/dL Normal 8.5-10.1 [facility] Comment on above: Performed By: #### L 501.4021, L506.0400, L501.9520, L100.0100, L503.7505, L500.2500 #### [facility] [address] [place], [address] Chloride [Moles/Vol] 99 mmol/L Normal 98-107 [facility] Comment on above: Performed By: #### L 501.4021, L506.0400, L501.9520, L100.0100, L503.7505, L500.2500 #### [facility] [address] [place], [address] CO2 [Moles/Vol] 25.0 mmol/L Normal 21.0-32.0 [facility] Comment on above: Performed By: #### L 501.4021, L506.0400, L501.9520, L100.0100, L503.7505, L500.2500 #### [facility] [address] [place], [address] Creatinine [Mass/Vol] 1.26 mg/dL Normal 0.70-1.30 [facility] Comment on above: Result Comment: The validity of the calculated GFR GFRAA in patients over 70 years has not been determined. Clinical correlation is essential. Performed By: #### L 501.4021, L506.0400, L501.9520, L100.0100, L503.7505, L500.2500 #### [facility] [address] [place], [address] ECRCL 80.25 ml/min Normal [facility] Comment on above: Performed By: #### L 501.4021, L506.0400, L501.9520, L100.0100, L503.7505, L500.2500 #### [facility] [address] [place], [address] EST GFR - AA 77 mL/min Normal >60 [facility] Comment on above: Result Comment: Afri can Turkish GFR Calc Performed By: #### L 501.4021, L506.0400, L501.9520, L100.0100, L503.7505, L500.2500 #### [facility] [address] [place], [address] GAP 9 Normal 5-15 [facility] Comment on above: Performed By: #### L 501.4021, L506.0400, L501.9520, L100.0100, L503.7505, L500.2500 #### [facility] [address] [place], [address] GFR/1.73 sq M.predicted among non-blacks MDRD (S/P/Bld) [Vol rate/Area] 64 mL/min/{1.73_m2} Normal >60 [facility] Comment on above: Result Comment: Non- GFR Calc Performed By: #### L 501.4021, L506.0400, L501.9520, L100.0100, L503.7505, L500.2500 #### [facility] [address] [place], [address] Globulin (S) [Mass/Vol] 4.2 g/dL Normal 2.2-4.2 [facility] Comment on above: Performed By: #### L 501.4021, L506.0400, L501.9520, L100.0100, L503.7505, L500.2500 #### [facility] [address] [place], [address] Glucose [Mass/Vol] 375 mg/dL High 74-106 [facility] Comment on above: Result Comment: Gluc ose result greater than or equal to 200 mg/dL suggests DIABETES MELLITUS per A.D.A. criteria. Performed By: #### L 501.4021, L506.0400, L501.9520, L100.0100, L503.7505, L500.2500 #### [facility] [address] [place], [address] Potassium [Moles/Vol] 4.0 mmol/L Normal 3.5-5.1 [facility] Comment on above: Performed By: #### L 501.4021, L506.0400, L501.9520, L100.0100, L503.7505, L500.2500 #### [facility] [address] [place], [address] Sodium [Moles/Vol] 133 mmol/L Low 136-145 [facility] Comment on above: Performed By: #### L 501.4021, L506.0400, L501.9520, L100.0100, L503.7505, L500.2500 #### [facility] [address] [place], [address] T PROT 6.9 g/dL Normal 6.4-8.2 [facility] Comment on above: Performed By: #### L 501.4021, L506.0400, L501.9520, L100.0100, L503.7505, L500.2500 #### [facility] [address] [place], [address] Urea nitrogen [Mass/Vol] 34 mg/dL High 7-18 [facility] Comment on above: Performed By: #### L 501.4021, L506.0400, L501.9520, L100.0100, L503.7505, L500.2500 #### [facility] [address] [place], [address] Magnesiumon 10-12-2024 Magnesium [Mass/Vol] 1.9 mg/dL Normal 1.6-2.6 [facility] Comment on above: Performed By: #### L 501.4021, L506.0400, L501.9520, L100.0100, L503.7505, L500.2500 #### [facility] [address] [place], [address] Phosphoruson 10-12-2024 Phosphate [Mass/Vol] 3.3 mg/dL Normal 2.5-4.9 [facility] Comment on above: Performed By: #### L 501.4021, L506.0400, L501.9520, L100.0100, L503.7505, L500.2500 #### [facility] [address] [place], [address] BNP,B-Type NATRIURETIC PEPTI Willow 10-11-2024 Natriuretic peptide B (Bld) [Mass/Vol] 206.7 pg/mL High 0-100 [facility] Comment on above: Performed By: #### L 501.4021, L506.0400, L501.9520, L100.0100, L503.7505, L500.2500 #### [facility] [address] [place], [address] Bedside Glucoseon 10-11-2024 FINGERSTICK GLU 268 mg/dL High 74-106 [facility] Comment on above: Result Comment: CARLOS BONILLA OF PATIENT CARE PER NURSING PROTOCOL Performed By: #### L 501.4021, L506.0400, L501.9520, L100.0100, L503.7505, L500.2500 #### [facility] [address] [place], [address] FINGERSTICK GLU 358 mg/dL High 74-106 [facility] Comment on above: Result Comment: CARLOS GEMENT OF PATIENT CARE PER NURSING PROTOCOL Performed By: #### L 503.6005, L300.3900, L501.5425, L100.0100, L500.2500, L300.4310, L503.6620 #### [facility] [address] [facility] [address] FINGERSTICK GLU 272 mg/dL High 74-106 [facility] Comment on above: Result Comment: CARLOS GEMENT OF PATIENT CARE PER NURSING PROTOCOL Performed By: #### L 501.4021, L506.0400, L501.9520, L100.0100, L503.7505, L500.2500 #### [facility] [address] [facility] [address] FINGERSTICK GLU 284 mg/dL High 74-106 [facility] Comment on above: Result Comment: CARLOS GEMENT OF PATIENT CARE PER NURSING PROTOCOL Performed By: #### L 501.4021, L506.0400, L501.9520, L100.0100, L503.7505, L500.2500 #### [facility] [address] [facility] [address] FINGERSTICK GLU 252 mg/dL High 74-106 [facility] Comment on above: Result Comment: CARLOS GEMENT OF PATIENT CARE PER NURSING PROTOCOL Performed By: #### L 503.6005, L300.3900, L501.5425, L100.0100, L500.2500, L300.4310, L503.6620 #### [facility] [address] [facility] [address] FINGERSTICK GLU 152 mg/dL High 74-106 [facility] Comment on above: Result Comment: CARLOS GEMENT OF PATIENT CARE PER NURSING PROTOCOL Performed By: #### L 501.080 #### [facility] [address] [place], [address] CBC W/Diff, Automatedon 11-2 -2023 Absolute Lymph 1.52 X10 3/uL Normal 0.83-4.51 [facility] Comment on above: Performed By: #### L 501.4021, L506.0400, L501.9520, L100.0100, L503.7505, L500.2500 #### [facility] [address] [place], [address] Absolute Neut 10.1 X10 3/uL High 2.0-7.7 [facility] Comment on above: Performed By: #### L 501.4021, L506.0400, L501.9520, L100.0100, L503.7505, L500.2500 #### [facility] [address] [place], [address] Basophils/100 WBC (Bld) 0.5 % Normal 0-1 [facility] Comment on above: Performed By: #### L 501.4021, L506.0400, L501.9520, L100.0100, L503.7505, L500.2500 #### [facility] [address] [place], [address] Eosinophils/100 WBC (Bld) 1.1 % Normal 0-5 [facility] Comment on above: Performed By: #### L 501.4021, L506.0400, L501.9520, L100.0100, L503.7505, L500.2500 #### [facility] [address] [place], [address] Erythrocyte distribution width (RBC) [Ratio] 13.3 % Normal 11.6-14.6 [facility] Comment on above: Performed By: #### L 501.4021, L506.0400, L501.9520, L100.0100, L503.7505, L500.2500 #### [facility] [address] [place], [address] Hematocrit (Bld) [Volume fraction] 42.6 % Normal 40-54 [facility] Comment on above: Performed By: #### L 501.4021, L506.0400, L501.9520, L100.0100, L503.7505, L500.2500 #### [facility] [address] [place], [address] Hemoglobin (Bld) [Mass/Vol] 13.2 g/dL Normal 13.0-16.5 [facility] Comment on above: Performed By: #### L 501.4021, L506.0400, L501.9520, L100.0100, L503.7505, L500.2500 #### [facility] [address] [facility] [place], [address] IG% 0.400 Normal 0.0-0.9 [facility] Comment on above: Result Comment: IG% - Immature Granulocytes (promyelocytes, myelocytes and metamyelocytes) > 1% indicates that a LEFT SHIFT is Present. Performed By: #### L 501.4021, L506.0400, L501.9520, L100.0100, L503.7505, L500.2500 #### [facility] [address] [place], [address] Lymphocytes/100 WBC (Bld) 12.3 % Low 19-41 [facility] Comment on above: Performed By: #### L 501.4021, L506.0400, L501.9520, L100.0100, L503.7505, L500.2500 #### [facility] [address] [facility] [place], [address] MCH (RBC) [Entitic mass] 27.3 pg Normal 27.0-32.0 [facility] Comment on above: Performed By: #### L 501.4021, L506.0400, L501.9520, L100.0100, L503.7505, L500.2500 #### [facility] [address] [place], [address] MCHC (RBC) [Mass/Vol] 31.0 g/dL Low 32-36 [facility] Comment on above: Performed By: #### L 501.4021, L506.0400, L501.9520, L100.0100, L503.7505, L500.2500 #### [facility] [address] [place], [address] MCV (RBC) [Entitic vol] 88.2 fL Normal 80-94 [facility] Comment on above: Performed By: #### L 501.4021, L506.0400, L501.9520, L100.0100, L503.7505, L500.2500 #### [facility] [address] [place], [address] Monocytes/100 WBC (Bld) 3.9 % Normal 0-10 [facility] Comment on above: Performed By: #### L 501.4021, L506.0400, L501.9520, L100.0100, L503.7505, L500.2500 #### [facility] [address] [place], [address] Neutrophils/100 WBC (Bld) 81.8 % High 47-70 [facility] Comment on above: Performed By: #### L 501.4021, L506.0400, L501.9520, L100.0100, L503.7505, L500.2500 #### [facility] [address] [place], [address] Nucleated RBC (Bld) [#/Vol] 0 10*3/uL Normal 0-5 [facility] Comment on above: Performed By: #### L 501.4021, L506.0400, L501.9520, L100.0100, L503.7505, L500.2500 #### [facility] [address] [place], [address] Platelet mean volume (Bld) [Entitic vol] 10.7 fL Normal 6.2-12.0 [facility] Comment on above: Performed By: #### L 501.4021, L506.0400, L501.9520, L100.0100, L503.7505, L500.2500 #### [facility] [address] [place], [address] Platelets (Bld) [#/Vol] 350 10*3/uL Normal 150-450 [facility] Comment on above: Performed By: #### L 501.4021, L506.0400, L501.9520, L100.0100, L503.7505, L500.2500 #### [facility] [address] [place], [address] RBC (Bld) [#/Vol] 4.83 10*6/uL Normal 4.6-6.2 [facility] Comment on above: Performed By: #### L 501.4021, L506.0400, L501.9520, L100.0100, L503.7505, L500.2500 #### [facility] [address] [place], [address] RDW SD 43.4 fl Normal 35.1-43.9 [facility] Comment on above: Performed By: #### L 501.4021, L506.0400, L501.9520, L100.0100, L503.7505, L500.2500 #### [facility] [address] [place], [address] WBC (Bld) [#/Vol] 12.3 10*3/uL High 4.4-11.0 [facility] Comment on above: Performed By: #### L 501.4021, L506.0400, L501.9520, L100.0100, L503.7505, L500.2500 #### [facility] [address] [place], [address] Chest 1 View (Portable)on Chest 1 View (Portable) [facility] Imaging Services [address] [place] [address] Chest 1 View (Portable) MR#: [id number] Acct: [id number] Name: LATONYA ELDER Rep #: [id number] : 1970 M 54 From: Danya Torrez PCP: Dr. Beka Bowie MD Status: ADM IN Study: Chest 1 View (Portable) Date of Exam: 10/11/24 Exam# [id number] Ordering Dr: Mitchell Deras DO [id number] INDICATION: AE CHF EXAMINATION/TECHNIQ UE: X-RAY [...] Mitchell Deras DO; Dr. Beka Bowie MD Production Sanitizer: Signed Normal [facility] Comprehensive Metabolic Prof ilon 10-11-2024 Albumin [Mass/Vol] 3.0 g/dL Low 3.2-5.0 [facility] Comment on above: Performed By: #### L 501.4021, L506.0400, L501.9520, L100.0100, L503.7505, L500.2500 #### [facility] [address] [place], [address] Albumin/Globulin [Mass ratio] 0.7 {ratio} Low 0.9-2.4 [facility] Comment on above: Performed By: #### L 501.4021, L506.0400, L501.9520, L100.0100, L503.7505, L500.2500 #### [facility] [address] [place], [address] ALK P 93 U/L Normal 45-117 [facility] Comment on above: Performed By: #### L 501.4021, L506.0400, L501.9520, L100.0100, L503.7505, L500.2500 #### [facility] [address] [place], [address] ALT [Catalytic activity/Vol] 20 U/L Normal 16-61 [facility] Comment on above: Performed By: #### L 501.4021, L506.0400, L501.9520, L100.0100, L503.7505, L500.2500 #### [facility] [address] [place], [address] AST [Catalytic activity/Vol] 13 U/L Low 15-37 [facility] Comment on above: Performed By: #### L 501.4021, L506.0400, L501.9520, L100.0100, L503.7505, L500.2500 #### [facility] [address] [place], [address] Bilirubin [Mass/Vol] 0.60 mg/dL Normal 0.20-1.00 [facility] Comment on above: Result Comment: For patients on eltrombopag therapy, use of Dimension [place] TBIL is not recommended. Performed By: #### L 501.4021, L506.0400, L501.9520, L100.0100, L503.7505, L500.2500 #### [facility] [address] [place], [address] BUN/CRE 16.5 RATIO Normal 10-20 [facility] Comment on above: Performed By: #### L 501.4021, L506.0400, L501.9520, L100.0100, L503.7505, L500.2500 #### [facility] [address] [place], [address] CA,Total 9.0 mg/dL Normal 8.5-10.1 [facility] Comment on above: Performed By: #### L 501.4021, L506.0400, L501.9520, L100.0100, L503.7505, L500.2500 #### [facility] [address] [place], [address] Chloride [Moles/Vol] 99 mmol/L Normal 98-107 [facility] Comment on above: Performed By: #### L 501.4021, L506.0400, L501.9520, L100.0100, L503.7505, L500.2500 #### [facility] [address] [place], [address] CO2 [Moles/Vol] 28.0 mmol/L Normal 21.0-32.0 [facility] Comment on above: Performed By: #### L 501.4021, L506.0400, L501.9520, L100.0100, L503.7505, L500.2500 #### [facility] [address] [place], [address] Creatinine [Mass/Vol] 1.39 mg/dL High 0.70-1.30 [facility] Comment on above: Result Comment: The validity of the calculated GFR GFRAA in patients over 70 years has not been determined. Clinical correlation is essential. Performed By: #### L 501.4021, L506.0400, L501.9520, L100.0100, L503.7505, L500.2500 #### [facility] [address] [place], [address] ECRCL 71.00 ml/min Normal [facility] Comment on above: Performed By: #### L 501.4021, L506.0400, L501.9520, L100.0100, L503.7505, L500.2500 #### [facility] [address] [place], [address] EST GFR - AA 69 mL/min Normal >60 [facility] Comment on above: Result Comment: Afri can Turkish GFR Calc Performed By: #### L 501.4021, L506.0400, L501.9520, L100.0100, L503.7505, L500.2500 #### [facility] [address] [place], [address] GAP 8 Normal 5-15 [facility] Comment on above: Performed By: #### L 501.4021, L506.0400, L501.9520, L100.0100, L503.7505, L500.2500 #### [facility] [address] [place], [address] GFR/1.73 sq M.predicted among non-blacks MDRD (S/P/Bld) [Vol rate/Area] 57 mL/min/{1.73_m2} Low >60 [facility] Comment on above: Result Comment: Non- GFR Calc Performed By: #### L 501.4021, L506.0400, L501.9520, L100.0100, L503.7505, L500.2500 #### [facility] [address] [place], [address] Globulin (S) [Mass/Vol] 4.3 g/dL High 2.2-4.2 [facility] Comment on above: Performed By: #### L 501.4021, L506.0400, L501.9520, L100.0100, L503.7505, L500.2500 #### [facility] [address] [place], [address] Glucose [Mass/Vol] 226 mg/dL High 74-106 [facility] Comment on above: Result Comment: Gluc ose result greater than or equal to 200 mg/dL suggests DIABETES MELLITUS per A.D.A. criteria. Performed By: #### L 501.4021, L506.0400, L501.9520, L100.0100, L503.7505, L500.2500 #### [facility] [address] [place], [address] Potassium [Moles/Vol] 3.7 mmol/L Normal 3.5-5.1 [facility] Comment on above: Performed By: #### L 501.4021, L506.0400, L501.9520, L100.0100, L503.7505, L500.2500 #### [facility] [address] [place], [address] Sodium [Moles/Vol] 135 mmol/L Low 136-145 [facility] Comment on above: Performed By: #### L 501.4021, L506.0400, L501.9520, L100.0100, L503.7505, L500.2500 #### [facility] [address] [place], [address] T PROT 7.3 g/dL Normal 6.4-8.2 [facility] Comment on above: Performed By: #### L 501.4021, L506.0400, L501.9520, L100.0100, L503.7505, L500.2500 #### [facility] [address] [place], [address] Urea nitrogen [Mass/Vol] 23 mg/dL High 7-18 [facility] Comment on above: Performed By: #### L 501.4021, L506.0400, L501.9520, L100.0100, L503.7505, L500.2500 #### [facility] [address] [place], [address] Gram Stainon 10-11-2024 GS SENT LABEL TO U FOR COLLECTION Acceptable Specimen? Yes (<25 Epithelial cells per/lpf) Gram Stain Rare White Blood Cells Rare Epithelial cells 3+ Gram positive cocci in chains 1+ Gram negative rods Normal [facility] Comment on above: Performed By: #### L 503.6005, L300.3900, L501.5425, L100.0100, L500.2500, L300.4310, L503.6620 #### [facility] [address] [place], [address] Hemoglobin A1con 10-11-2024 HbA1c (Bld) [Mass fraction] 9.5 % High 3.8-5.6 [facility] Comment on above: Result Comment: Norm al < 5.7 % Prediabetic 5.7 - 6.4 % Diabetic >or= 6.5 % Please note range changes. Performed By: #### L 501.4021, L506.0400, L501.9520, L100.0100, L503.7505, L500.2500 #### [facility] [address] [place], [address] L501.4020on 10-11-2024 TROPONIN-I HS 99 pg/mL High 3.0-78.0 [facility] Comment on above: Order Comment: 'TROP ' Serial specimen #1, #2 or #3: 3 3 Result Comment: Plea se Note: New Test Units and Gender Specific Reference Ranges. For more information see Policy Stat Procedure [place] High Sensitivity Troponin (TNIH) and attachments. Performed By: #### L 501.4020 #### [facility] [address] [place], [address] Lipid Profileon 10-11-2024 HDL Normal [facility] Comment on above: Result Comment: DUPL ICATE ORDER. The drugs N-Acetylcysteine and Metamizole may falsely depress this assay. Performed By: #### L 501.4021, L506.0400, L501.9520, L100.0100, L503.7505, L500.2500 #### [facility] [address] [place], [address] TRIG Normal [facility] Comment on above: Result Comment: DUPL ICATE ORDER. The drugs N-Acetylcysteine and Metamizole may falsely depress this assay. Performed By: #### L 501.4021, L506.0400, L501.9520, L100.0100, L503.7505, L500.2500 #### [facility] [address] [place], [address] Cholesterol [Mass/Vol] 146 mg/dL Normal 200 [facility] Comment on above: Result Comment: <200 mg/dL Desirable 200-240 mg/dL Borderline >240 mg/dL High Risk Performed By: #### L 501.4021, L506.0400, L501.9520, L100.0100, L503.7505, L500.2500 #### [facility] [address] [place], [address] Cholesterol in HDL [Mass/Vol] 33 mg/dL Low [facility] Comment on above: Result Comment: The drugs N-Acetylcysteine and Metamizole may falsely depress this assay. Reference Range HDL <40 mg/dL Low HDL Cholesterol HDL >or= 60 mg/dL High HDL Cholesterol Performed By: #### L 501.4021, L506.0400, L501.9520, L100.0100, L503.7505, L500.2500 #### [facility] [address] [place], [address] Cholesterol in LDL [Mass/Vol] 89 mg/dL Normal 0-130 [facility] Comment on above: Performed By: #### L 501.4021, L506.0400, L501.9520, L100.0100, L503.7505, L500.2500 #### [facility] [address] [place], [address] Cholesterol in VLDL [Mass/Vol] 24 mg/dL Normal 5-40 [facility] Comment on above: Performed By: #### L 501.4021, L506.0400, L501.9520, L100.0100, L503.7505, L500.2500 #### [facility] [address] [place], [address] Triglyceride [Mass/Vol] 119 mg/dL Normal [facility] Comment on above: Result Comment: The drugs N-Acetylcysteine and Metamizole may falsely depress this assay. Serum Triglycerides Reference Interval Normal <150 mg/dL Borderline high 150 - 199 mg/dL High 200 - 499 mg/dL Very High > or = 500 mg/dL Performed By: #### L 501.4021, L506.0400, L501.9520, L100.0100, L503.7505, L500.2500 #### [facility] [address] [place], [address] CHOL Normal 200 [facility] Comment on above: Result Comment: DUPL ICATE ORDER. Performed By: #### L 501.4021, L506.0400, L501.9520, L100.0100, L503.7505, L500.2500 #### [facility] [address] [place], [address] LDL Normal 0-130 [facility] Comment on above: Result Comment: DUPL ICATE ORDER. Performed By: #### L 501.4021, L506.0400, L501.9520, L100.0100, L503.7505, L500.2500 #### [facility] [address] [place], [address] VLDL Normal 5-40 [facility] Comment on above: Result Comment: DUPL ICATE ORDER. Performed By: #### L 501.4021, L506.0400, L501.9520, L100.0100, L503.7505, L500.2500 #### [facility] [address] [place], [address] Magnesiumon 10-11-2024 Magnesium [Mass/Vol] 2.0 mg/dL Normal 1.6-2.6 [facility] Comment on above: Performed By: #### L 501.4021, L506.0400, L501.9520, L100.0100, L503.7505, L500.2500 #### [facility] [address] [place], [address] Phosphoruson 10-11-2024 Phosphate [Mass/Vol] 2.8 mg/dL Normal 2.5-4.9 [facility] Comment on above: Performed By: #### L 501.4021, L506.0400, L501.9520, L100.0100, L503.7505, L500.2500 #### [facility] [address] [place], [address] RESPIRATORY PANEL MOLECULARo n 10-11-2024 RP PANEL ADENOVIRUS Not Detected INFLUENZA A Not Detected INFLUENZA A (SUBTYPE H1) Not Detected INFLUENZA A (SUBTYPE H3) Not Detected INFLUENZA B Not Detected HUMAN METAPHNEUMO Not Detected PARAINFLUENZA 1 Not Detected PARAINFLUENZA 2 Not Detected PARAINFLUENZA 3 Not Detected PARAINFLUENZA 4 Not Detected RHINOVIRUS Not Detected RSV A Not Detected RSV B Not Detected Normal [facility] Comment on above: Performed By: #### L 503.6005, L300.3900, L501.5425, L100.0100, L500.2500, L300.4310, L503.6620 #### [facility] [address] [facility] [place], [address] Thyroid Stim Hormone (TSH)on 10-11-2024 TSH 1.590 uIU/mL Normal 0.358-3.740 [facility] Comment on above: Performed By: #### L 501.4021, L506.0400, L501.9520, L100.0100, L503.7505, L500.2500 #### [facility] [address] [place], [address] 12 Lead EKGon 10-10-2024 12 Lead EKG [facility] Cardiovascular Services [address] [place] [address] 12 Lead EKG 10/10/241957 MR#: [id number] Acct: [id number] Name: LATONYA ELDER Rep #: [id number] : 1970 54 From: Harvey Murphy MD Attending Dr: Dr. Nasim Leblanc MD Status: ADM IN Ordering Dr: Brennon Mckeon DO Date: 10/10/24 Location: [facility] Sex: M C Admitted: 10/11/24 Test Reason [...] undetermined Abnormal ECG Confirmed by Harvey Murphy ([id number]), newspaper or periodical editor EVELIO CURRY ([id number]) on 10/13/2024 6:24:07 AM Referred By: Confirmed By: Harvey Murphy 10/13/24 0624 Date Harvey Murphy MD CC: Dr. Beka Bowie MD; Dr. Brennon Mckeon DO; Dr. Nasim Leblanc MD Signed Normal [facility] BNP,B-Type NATRIURETIC PEPTI [place] 10-10-2024 Natriuretic peptide B (Bld) [Mass/Vol] 261.1 pg/mL High 0-100 [facility] Comment on above: Performed By: #### L 501.4020 #### [facility] [address] [place], [address] Basic Metabolic Profile (BMP )on 10-10-2024 BUN/CRE 14.7 RATIO Normal 10-20 [facility] Comment on above: Order Comment: 1Y Performed By: #### L 501.4020 #### [facility] [address] [place], [address] CA,Total 8.9 mg/dL Normal 8.5-10.1 [facility] Comment on above: Order Comment: 1Y Performed By: #### L 501.4020 #### [facility] [address] [place], [address] Chloride [Moles/Vol] 105 mmol/L Normal 98-107 [facility] Comment on above: Order Comment: 1Y Performed By: #### L 501.4020 #### [facility] [address] [place], [address] CO2 [Moles/Vol] 28.0 mmol/L Normal 21.0-32.0 [facility] Comment on above: Order Comment: 1Y Performed By: #### L 501.4020 #### [facility] [address] [place], [address] Creatinine [Mass/Vol] 1.09 mg/dL Normal 0.70-1.30 [facility] Comment on above: Order Comment: 1Y Result Comment: The validity of the calculated GFR GFRAA in patients over 70 years has not been determined. Clinical correlation is essential. Performed By: #### L 501.4020 #### [facility] [address] [place], [address] ECRCL 92.66 ml/min Normal [facility] Comment on above: Order Comment: 1Y Performed By: #### L 501.4020 #### [facility] [address] [place], [address] EST GFR - AA 91 mL/min Normal >60 [facility] Comment on above: Order Comment: 1Y Result Comment: Afri can Turkish GFR Calc Performed By: #### L 501.4020 #### [facility] [address] [place], [address] GAP 6 Normal 5-15 [facility] Comment on above: Order Comment: 1Y Performed By: #### L 501.4020 #### [facility] [address] [place], [address] GFR/1.73 sq M.predicted among non-blacks MDRD (S/P/Bld) [Vol rate/Area] 75 mL/min/{1.73_m2} Normal >60 [facility] Comment on above: Order Comment: 1Y Result Comment: Non- GFR Calc Performed By: #### L 501.4020 #### [facility] [address] [place], [address] Glucose [Mass/Vol] 160 mg/dL High 74-106 [facility] Comment on above: Order Comment: 1Y Result Comment: Fast ing Glucose result greater than or equal to 126 mg/dL suggests DIABETES MELLITUS per A.D.A. criteria. Performed By: #### L 501.4020 #### [facility] [address] [place], [address] Potassium [Moles/Vol] 3.7 mmol/L Normal 3.5-5.1 [facility] Comment on above: Order Comment: 1Y Performed By: #### L 501.4020 #### [facility] [address] [place], [address] Sodium [Moles/Vol] 138 mmol/L Normal 136-145 [facility] Comment on above: Order Comment: 1Y Performed By: #### L 501.4020 #### [facility] [address] [place], [address] Urea nitrogen [Mass/Vol] 16 mg/dL Normal 7-18 [facility] Comment on above: Order Comment: 1Y Performed By: #### L 501.4020 #### [facility] [address] [place], [address] CBC W/Diff, Automatedon 11-2 2-2023 Absolute Lymph 1.94 X10 3/uL Normal 0.83-4.51 [facility] Comment on above: Performed By: #### L 503.6005, L300.3900, L501.5425, L100.0100, L500.2500, L300.4310, L503.6620 #### [facility] [address] [place], [address] Absolute Neut 8.6 X10 3/uL High 2.0-7.7 [facility] Comment on above: Performed By: #### L 503.6005, L300.3900, L501.5425, L100.0100, L500.2500, L300.4310, L503.6620 #### [facility] [address] [place], [address] Basophils/100 WBC (Bld) 0.4 % Normal 0-1 [facility] Comment on above: Performed By: #### L 503.6005, L300.3900, L501.5425, L100.0100, L500.2500, L300.4310, L503.6620 #### [facility] [address] [place], [address] Eosinophils/100 WBC (Bld) 0.6 % Normal 0-5 [facility] Comment on above: Performed By: #### L 503.6005, L300.3900, L501.5425, L100.0100, L500.2500, L300.4310, L503.6620 #### [facility] [address] [place], [address] Erythrocyte distribution width (RBC) [Ratio] 13.4 % Normal 11.6-14.6 [facility] Comment on above: Performed By: #### L 503.6005, L300.3900, L501.5425, L100.0100, L500.2500, L300.4310, L503.6620 #### [facility] [address] [place], [address] Hematocrit (Bld) [Volume fraction] 39.2 % Low 40-54 [facility] Comment on above: Performed By: #### L 503.6005, L300.3900, L501.5425, L100.0100, L500.2500, L300.4310, L503.6620 #### [facility] [address] [place], [address] Hemoglobin (Bld) [Mass/Vol] 12.6 g/dL Low 13.0-16.5 [facility] Comment on above: Performed By: #### L 503.6005, L300.3900, L501.5425, L100.0100, L500.2500, L300.4310, L503.6620 #### [facility] [address] [place], [address] IG% 0.300 Normal 0.0-0.9 [facility] Comment on above: Result Comment: IG% - Immature Granulocytes (promyelocytes, myelocytes and metamyelocytes) > 1% indicates that a LEFT SHIFT is Present. Performed By: #### L 503.6005, L300.3900, L501.5425, L100.0100, L500.2500, L300.4310, L503.6620 #### [facility] [address] [place], [address] Lymphocytes/100 WBC (Bld) 16.3 % Low 19-41 [facility] Comment on above: Performed By: #### L 503.6005, L300.3900, L501.5425, L100.0100, L500.2500, L300.4310, L503.6620 #### [facility] [address] [place], [address] MCH (RBC) [Entitic mass] 27.8 pg Normal 27.0-32.0 [facility] Comment on above: Performed By: #### L 503.6005, L300.3900, L501.5425, L100.0100, L500.2500, L300.4310, L503.6620 #### [facility] [address] [place], [address] MCHC (RBC) [Mass/Vol] 32.1 g/dL Normal 32-36 [facility] Comment on above: Performed By: #### L 503.6005, L300.3900, L501.5425, L100.0100, L500.2500, L300.4310, L503.6620 #### [facility] [address] [place], [address] MCV (RBC) [Entitic vol] 86.3 fL Normal 80-94 [facility] Comment on above: Performed By: #### L 503.6005, L300.3900, L501.5425, L100.0100, L500.2500, L300.4310, L503.6620 #### [facility] [address] [place], [address] Monocytes/100 WBC (Bld) 10.3 % High 0-10 [facility] Comment on above: Performed By: #### L 503.6005, L300.3900, L501.5425, L100.0100, L500.2500, L300.4310, L503.6620 #### [facility] [address] [place], [address] Neutrophils/100 WBC (Bld) 72.1 % High 47-70 [facility] Comment on above: Performed By: #### L 503.6005, L300.3900, L501.5425, L100.0100, L500.2500, L300.4310, L503.6620 #### [facility] [address] [place], [address] Nucleated RBC (Bld) [#/Vol] 0 10*3/uL Normal 0-5 [facility] Comment on above: Performed By: #### L 503.6005, L300.3900, L501.5425, L100.0100, L500.2500, L300.4310, L503.6620 #### [facility] [address] [place], [address] Platelet mean volume (Bld) [Entitic vol] 10.3 fL Normal 6.2-12.0 [facility] Comment on above: Performed By: #### L 503.6005, L300.3900, L501.5425, L100.0100, L500.2500, L300.4310, L503.6620 #### [facility] [address] [place], [address] Platelets (Bld) [#/Vol] 320 10*3/uL Normal 150-450 [facility] Comment on above: Performed By: #### L 503.6005, L300.3900, L501.5425, L100.0100, L500.2500, L300.4310, L503.6620 #### [facility] [address] [place], [address] RBC (Bld) [#/Vol] 4.54 10*6/uL Low 4.6-6.2 [facility] Comment on above: Performed By: #### L 503.6005, L300.3900, L501.5425, L100.0100, L500.2500, L300.4310, L503.6620 #### [facility] [address] [place], [address] RDW SD 41.7 fl Normal 35.1-43.9 [facility] Comment on above: Performed By: #### L 503.6005, L300.3900, L501.5425, L100.0100, L500.2500, L300.4310, L503.6620 #### [facility] [address] [facility] [place], [address] WBC (Bld) [#/Vol] 11.9 10*3/uL High 4.4-11.0 [facility] Comment on above: Performed By: #### L 503.6005, L300.3900, L501.5425, L100.0100, L500.2500, L300.4310, L503.6620 #### [facility] [address] [place], [address] CTA Chest W/WO Contraston CTA Chest W/WO Contrast [facility] Imaging Services [address] [place] [address] CTA Chest W/WO Contrast MR#: [id number] Acct: [id number] Name: LATONYA ELDER Rep #: [id number] : 1970 M 54 From: David Yanez MD PCP: Dr. Beka Bowie MD Status: [facility] ER Study: CTA Chest W/WO Contrast Date of Exam: 10/10/24 Exam# [id number] Ordering Dr: Brennon Mckeon DO [id number] STUDY: CTA CHEST REASON FOR EXAM: [...] 20:40 EST Reading Location ID and State: [address] [place] [address] Tel , Service support , CC: Dr. Beka Bowie MD; Dr. Brennon Mckeon DO Production Sanitizer: Signed Normal [facility] Emergency Department Summary on 10-10-2024 Emergency Department Summary [facility] Medical Records Department [address] [place] [address] Emergency Department Summary 10/10/24 MR#: [id number] Acct: [id number] Name: LATONYA ELDER Rep #: [id number] : 1970 54 From: Brennon Mckeon DO PCP: Dr. Beka Bowie MD Status:ADM IN Location: PCU [id number] HPI History of Present Illness Chief Complaint: [...] Recent immobilization, Recent surgery or Recent travel [facility] Medical History Acute sinusitis, unspecified Left shoulder pain Insulin dependent diabetes mellitus Coronary artery disease Essential hypertension Cluster headache Migraine Headache Diabetes Obesity Community acquired pneumonia Smoker Asthma Myocardial infarct Ischemic cardiomyopathy Obesity (BMI 30.0-34.9) Chronic obstructive pulmonary disease (COPD) Nicotine dependence COPD (chronic obstructive pulmonary disease) Hyperlipidemia History of non-ST elevation myocardial infarction (NSTEMI) (11/22/20) Atherosclerosis of [place] coronary artery of [place] heart without angina pectoris Non-ST elevation [place] (NSTEMI) Home Medications ???Medication ???Instructions ???Recorded ???Last Taken ???Type aspirin 81 mg chewable tablet 81 mg PO DAILY heart health 04/27/22 04/27/22 History loratadine 10 mg tablet 10 mg PO DAILY PRN allergies 06/26/22 Unknown History carvedilol 25 mg tablet 25 mg PO BIDCM [facility] 04/24/23 Unknown Rx tabs clonidine [...] History (Re (more content not included)... Normal [facility] H AND P Exam - [facility] 10-10-2024 H&P Exam - Hospitalist [facility] Medical Records Department [address] [place] [address] H P Exam - Hospitalist 10/10/24 2336 MR#: [id number] Acct: [id number] Name: LATONYA ELDER Rep #: [id number] : 1970 54 From: Mitchell Deras DO PCP: Dr. Beka Bowie MD Status:ADM IN Location: [place] [address] HPI - General General Date of Admission: [...] history of neck surgery who presents to [facility] ER complaining of SOB and cough. Mr. [...] is expected to extend beyond 2 midnights. [facility] Medical History Acute sinusitis, unspecified Left shoulder pain Insulin dependent diabetes mellitus Coronary artery disease Essential hypertension Cluster headache Migraine Headache Diabetes Obesity Community acquired pneumonia Smoker Asthma Myocardial infarct Ischemic cardiomyopathy Obesity (BMI 30.0-34.9) Chronic obstructive pulmonary disease (COPD) Nicotine dependence COPD (chronic obstructive pulmonary disease) Hyperlipidemia History of non-ST elevation myocardial infarction (NSTEMI) (11/22/20) Atherosclerosis of [place] coronary artery of [place] heart without angina pectoris Non-ST elevation [place] (NSTEMI) Home Medications ???Medication ???Instructions ???Recorded ???Last [...] tabs 02 (more content not included)... Normal [facility] L501.4020on 10-10-2024 TROPONIN-I HS 105 pg/mL High 3.0-78.0 [facility] Comment on above: Result Comment: Colette antunez Note: New Test Units and Gender Specific Reference Ranges. For more information see Policy Stat Procedure [place] High Sensitivity Troponin (TNIH) and attachments. Performed By: #### L 501.4020 #### [facility] [address] [place], [place], [address] L501.5425on 10-10-2024 TROPONIN-I HS 112 pg/mL High 3.0-78.0 [facility] Comment on above: Order Comment: 1Y Result Comment: Pleazra antunez Note: New Test Units and Gender Specific Reference Ranges. For more information see Policy Stat Procedure [place] High Sensitivity Troponin (TNIH) and attachments. Performed By: #### L 501.4020 #### [facility] [address] [place], [place], [address] Lactic Acidon 11-22-2024 Lactate [Moles/Vol] 1.2 mmol/L Normal 0.4-1.9 [facility] Comment on above: Order Comment: Y Performed By: #### L 501.4020 #### [facility] [address] [place], [address] Partial Thromboplast Timeon 10-10-2024 aPTT Coag (Bld) [Time] 28.5 s Normal 24.1-36.2 [facility] Comment on above: Performed By: #### L 501.4020 #### [facility] [address] [place], [address] Prothrombin Time w/INRon INR Coag (PPP) [Relative time] 1.3 {INR} Normal [facility] Comment on above: Performed By: #### L 501.4020 #### [facility] [address] [place], [address] PT Coag (PPP) [Time] 15.7 s High 11.7-14.9 [facility] Comment on above: Performed By: #### L 501.4020 #### [facility] [address] [place], [address] 12 Lead EKGon 09-25-2024 12 Lead EKG [facility] Cardiovascular Services [address] [place] [address] 12 Lead EKG 09/25/24 1653 MR#: [id number] Acct: [id number] Name: LATONYA ELDER Rep #: [id number] : 1970 54 From: Eric Flores MD [...] Abnormal ECG Confirmed by SANDRA EVANGELISTA, ERIC ([id number]), newspaper or periodical editor TESS PERRY ([id number]) on 09/29/2024 10:11:59 AM Referred By: Confirmed By: ERIC FLORES MD 09/29/24 1012 Date Eric Flores MD CC: Dr. Beka Bowie MD; Dr. Brennon Mckeon, DO Signed Normal [facility] BNP,B-Type NATRIURETIC PEPTI [place] 09-25-2024 Natriuretic peptide B (Bld) [Mass/Vol] 307.2 pg/mL High 0-100 [facility] Comment on above: Performed By: #### L 501.4021, L506.0400, L501.9520, L100.0100, L503.7505, L500.2500 #### [facility] [address] [place], [address] Basic Metabolic Profile (BMP )on 09-25-2024 BUN/CRE 20.7 RATIO High 10-20 [facility] Comment on above: Order Comment: 'TROP ' Serial specimen #1, #2 or #3: 1 Performed By: #### L 501.4021, L506.0400, L501.9520, L100.0100, L503.7505, L500.2500 #### [facility] [address] [place], [address] CA,Total 8.8 mg/dL Normal 8.5-10.1 [facility] Comment on above: Order Comment: 'TROP ' Serial specimen #1, #2 or #3: 1 Performed By: #### L 501.4021, L506.0400, L501.9520, L100.0100, L503.7505, L500.2500 #### [facility] [address] [place], [address] Chloride [Moles/Vol] 108 mmol/L High 98-107 [facility] Comment on above: Order Comment: 'TROP ' Serial specimen #1, #2 or #3: 1 Performed By: #### L 501.4021, L506.0400, L501.9520, L100.0100, L503.7505, L500.2500 #### [facility] [address] [place], [address] CO2 [Moles/Vol] 29.0 mmol/L Normal 21.0-32.0 [facility] Comment on above: Order Comment: 'TROP ' Serial specimen #1, #2 or #3: 1 Performed By: #### L 501.4021, L506.0400, L501.9520, L100.0100, L503.7505, L500.2500 #### [facility] [address] [place], [address] Creatinine [Mass/Vol] 1.11 mg/dL Normal 0.70-1.30 [facility] Comment on above: Order Comment: 'TROP ' Serial specimen #1, #2 or #3: 1 Result Comment: The validity of the calculated GFR GFRAA in patients over 70 years has not been determined. Clinical correlation is essential. Performed By: #### L 501.4021, L506.0400, L501.9520, L100.0100, L503.7505, L500.2500 #### [facility] [address] [place], [address] ECRCL 93.07 ml/min Normal [facility] Comment on above: Order Comment: 'TROP ' Serial specimen #1, #2 or #3: 1 Performed By: #### L 501.4021, L506.0400, L501.9520, L100.0100, L503.7505, L500.2500 #### [facility] [address] [place], [address] EST GFR - AA 89 mL/min Normal >60 [facility] Comment on above: Order Comment: 'TROP ' Serial specimen #1, #2 or #3: 1 Result Comment: Afri can Turkish GFR Calc Performed By: #### L 501.4021, L506.0400, L501.9520, L100.0100, L503.7505, L500.2500 #### [facility] [address] [place], [address] GAP 3 Low 5-15 [facility] Comment on above: Order Comment: 'TROP ' Serial specimen #1, #2 or #3: 1 Performed By: #### L 501.4021, L506.0400, L501.9520, L100.0100, L503.7505, L500.2500 #### [facility] [address] [place], [address] GFR/1.73 sq M.predicted among non-blacks MDRD (S/P/Bld) [Vol rate/Area] 74 mL/min/{1.73_m2} Normal >60 [facility] Comment on above: Order Comment: 'TROP ' Serial specimen #1, #2 or #3: 1 Result Comment: Non- GFR Calc Performed By: #### L 501.4021, L506.0400, L501.9520, L100.0100, L503.7505, L500.2500 #### [facility] [address] [place], [address] Glucose [Mass/Vol] 128 mg/dL High 74-106 [facility] Comment on above: Order Comment: 'TROP ' Serial specimen #1, #2 or #3: 1 Result Comment: Fast ing Glucose result greater than or equal to 126 mg/dL suggests DIABETES MELLITUS per A.D.A. criteria. Performed By: #### L 501.4021, L506.0400, L501.9520, L100.0100, L503.7505, L500.2500 #### [facility] [address] [place], [address] Potassium [Moles/Vol] 4.5 mmol/L Normal 3.5-5.1 [facility] Comment on above: Order Comment: 'TROP ' Serial specimen #1, #2 or #3: 1 Performed By: #### L 501.4021, L506.0400, L501.9520, L100.0100, L503.7505, L500.2500 #### [facility] [address] [place], [address] Sodium [Moles/Vol] 140 mmol/L Normal 136-145 [facility] Comment on above: Order Comment: 'TROP ' Serial specimen #1, #2 or #3: 1 Performed By: #### L 501.4021, L506.0400, L501.9520, L100.0100, L503.7505, L500.2500 #### [facility] [address] [place], [address] Urea nitrogen [Mass/Vol] 23 mg/dL High 7-18 [facility] Comment on above: Order Comment: 'TROP ' Serial specimen #1, #2 or #3: 1 Performed By: #### L 501.4021, L506.0400, L501.9520, L100.0100, L503.7505, L500.2500 #### [facility] [address] [place], [address] CBC W/Diff, Automatedon 11-0 7-2023 Absolute Lymph 3.00 X10 3/uL Normal 0.83-4.51 [facility] Comment on above: Performed By: #### L 501.4021, L506.0400, L501.9520, L100.0100, L503.7505, L500.2500 #### [facility] [address] [place], [address] Absolute Neut 7.8 X10 3/uL High 2.0-7.7 [facility] Comment on above: Performed By: #### L 501.4021, L506.0400, L501.9520, L100.0100, L503.7505, L500.2500 #### [facility] [address] [place], [address] Basophils/100 WBC (Bld) 0.5 % Normal 0-1 [facility] Comment on above: Performed By: #### L 501.4021, L506.0400, L501.9520, L100.0100, L503.7505, L500.2500 #### [facility] [address] [place], [address] Eosinophils/100 WBC (Bld) 2.7 % Normal 0-5 [facility] Comment on above: Performed By: #### L 501.4021, L506.0400, L501.9520, L100.0100, L503.7505, L500.2500 #### [facility] [address] [place], [address] Erythrocyte distribution width (RBC) [Ratio] 13.2 % Normal 11.6-14.6 [facility] Comment on above: Performed By: #### L 501.4021, L506.0400, L501.9520, L100.0100, L503.7505, L500.2500 #### [facility] [address] [place], [address] Hematocrit (Bld) [Volume fraction] 41.5 % Normal 40-54 [facility] Comment on above: Performed By: #### L 501.4021, L506.0400, L501.9520, L100.0100, L503.7505, L500.2500 #### [facility] [address] [place], [address] Hemoglobin (Bld) [Mass/Vol] 13.4 g/dL Normal 13.0-16.5 [facility] Comment on above: Performed By: #### L 501.4021, L506.0400, L501.9520, L100.0100, L503.7505, L500.2500 #### [facility] [address] [place], [address] IG% 0.600 Normal 0.0-0.9 [facility] Comment on above: Result Comment: IG% - Immature Granulocytes (promyelocytes, myelocytes and metamyelocytes) > 1% indicates that a LEFT SHIFT is Present. Performed By: #### L 501.4021, L506.0400, L501.9520, L100.0100, L503.7505, L500.2500 #### [facility] [address] [place], [address] Lymphocytes/100 WBC (Bld) 24.3 % Normal 19-41 [facility] Comment on above: Performed By: #### L 501.4021, L506.0400, L501.9520, L100.0100, L503.7505, L500.2500 #### [facility] [address] [place], [address] MCH (RBC) [Entitic mass] 28.3 pg Normal 27.0-32.0 [facility] Comment on above: Performed By: #### L 501.4021, L506.0400, L501.9520, L100.0100, L503.7505, L500.2500 #### [facility] [address] [place], [address] MCHC (RBC) [Mass/Vol] 32.3 g/dL Normal 32-36 [facility] Comment on above: Performed By: #### L 501.4021, L506.0400, L501.9520, L100.0100, L503.7505, L500.2500 #### [facility] [address] [place], [address] MCV (RBC) [Entitic vol] 87.6 fL Normal 80-94 [facility] Comment on above: Performed By: #### L 501.4021, L506.0400, L501.9520, L100.0100, L503.7505, L500.2500 #### [facility] [address] [place], [address] Monocytes/100 WBC (Bld) 8.8 % Normal 0-10 [facility] Comment on above: Performed By: #### L 501.4021, L506.0400, L501.9520, L100.0100, L503.7505, L500.2500 #### [facility] [address] [place], [address] Neutrophils/100 WBC (Bld) 63.1 % Normal 47-70 [facility] Comment on above: Performed By: #### L 501.4021, L506.0400, L501.9520, L100.0100, L503.7505, L500.2500 #### [facility] [address] [place], [address] Nucleated RBC (Bld) [#/Vol] 0 10*3/uL Normal 0-5 [facility] Comment on above: Performed By: #### L 501.4021, L506.0400, L501.9520, L100.0100, L503.7505, L500.2500 #### [facility] [address] [place], [address] Platelet mean volume (Bld) [Entitic vol] 10.1 fL Normal 6.2-12.0 [facility] Comment on above: Performed By: #### L 501.4021, L506.0400, L501.9520, L100.0100, L503.7505, L500.2500 #### [facility] [address] [place], [address] Platelets (Bld) [#/Vol] 330 10*3/uL Normal 150-450 [facility] Comment on above: Performed By: #### L 501.4021, L506.0400, L501.9520, L100.0100, L503.7505, L500.2500 #### [facility] [address] [place], [address] RBC (Bld) [#/Vol] 4.74 10*6/uL Normal 4.6-6.2 [facility] Comment on above: Performed By: #### L 501.4021, L506.0400, L501.9520, L100.0100, L503.7505, L500.2500 #### [facility] [address] [place], [address] RDW SD 42.1 fl Normal 35.1-43.9 [facility] Comment on above: Performed By: #### L 501.4021, L506.0400, L501.9520, L100.0100, L503.7505, L500.2500 #### [facility] [address] [place], [address] WBC (Bld) [#/Vol] 12.3 10*3/uL High 4.4-11.0 [facility] Comment on above: Performed By: #### L 501.4021, L506.0400, L501.9520, L100.0100, L503.7505, L500.2500 #### [facility] [address] [place], [address] CTA Chest W/WO Contrast CTA Chest W/WO Contrast [facility] Imaging Services [address] [place] [address] CTA Chest W/WO Contrast MR#: [id number] Acct: [id number] Name: LATONYA ELDER Rep #: [id number] : 1970 M 54 From: Kj myers MD PCP: Dr. Beka Bowie MD Status: REG ER Study: CTA Chest W/WO Contrast Date of Exam: 09/25/24 Exam# [id number] Ordering Dr: Brennon Mckeon DO [id number] STUDY: CTA CHEST REASON FOR EXAM: [...] Beka Bowie MD; Dr. Brennon Mckeon DO Production Sanitizer: Signed Normal [facility] Chest PA and Lateralon 09-25 Chest PA and Lateral [facility] Imaging Services [address] [place], [place] [address] Chest PA and Lateral MR#: [id number] Acct: [id number] Name: LATONYA ELDER Rep #: [id number] : 1970 M 54 From: Kj myers MD PCP: Dr. Beka Bowie MD Status: REG ER Study: Chest PA and Lateral Date of Exam: 09/25/24 Exam# [id number] Ordering Dr: Brennon Mckeon DO -[id number] STUDY: X-RAY CHEST REASON FOR EXAM: [...] Beka Bowie MD; Dr. Brennon Mckeon DO Production Sanitizer: Signed Normal [facility] D-Dimer Quantitative (DVT/PE )on 09-25-2024 D-DIMER QUANT 0.80 FEU/ug/m Invalid Interpretation Code 0.27-0.49 [facility] Comment on above: Result Comment: D-Di olvin ELEVATED (>0.49): Additional studies and clinical assessments are indicated to conclude diagnosis of: Deep Vein Thrombosis (DVT) or Pulmonary Embolism (PE) RESULTS CALLED TO [place] 09/25/24 1751 Roya Quiñones. REPORT READ BACK BY SAME. Performed By: #### L 501.4021, L506.0400, L501.9520, L100.0100, L503.7505, L500.2500 #### [facility] [address] [facility] [place], [address] Emergency Department Summary on 09-25-2024 Emergency Department Summary [facility] Medical Records Department [address] [place] [address] Emergency Department Summary 09/25/24 MR#: [id number] Acct: [id number] Name: LATONYA ELDER Rep #: [id number] : 1970 54 From: Brennon Mckeon DO [...] has had some syncopal episodes after coughing. [facility] Medical History Acute sinusitis, unspecified Left shoulder pain Insulin dependent diabetes mellitus Coronary artery disease Essential hypertension Cluster headache Migraine Headache Diabetes Obesity Community acquired pneumonia Smoker Asthma Myocardial infarct Ischemic cardiomyopathy Obesity (BMI 30.0-34.9) Chronic obstructive pulmonary disease (COPD) Nicotine dependence COPD (chronic obstructive pulmonary disease) Hyperlipidemia History of non-ST elevation myocardial infarction (NSTEMI) (11/22/20) Atherosclerosis of [place] coronary artery of [place] heart without angina pectoris Non-ST elevation [place] (NSTEMI) Home Medications ???Medication ???Instructions ???Recorded ???Last Taken ???Type aspirin 81 mg chewable tablet 81 mg PO DAILY [facility] 04/27/22 04/27/22 History loratadine 10 mg tablet 10 mg PO DAILY PRN allergies 06/26/22 Unknown History carvedilol 25 mg tablet 25 mg PO BIDCM [facility] 04/24/23 Unknown Rx tabs clonidine [...] of coron (more content not included)... Normal [facility] L501.4020on 09-25-2024 TROPONIN-I HS 85 pg/mL High 3.0-78.0 [facility] Comment on above: Order Comment: 'TROP ' Serial specimen #1, #2 or #3: 2 Result Comment: Colette antunez Note: New Test Units and Gender Specific Reference Ranges. For more information see Policy Stat Procedure [place] High Sensitivity Troponin (TNIH) and attachments. Performed By: #### L 501.4020 #### [facility] [address] [place], [address] TROPONIN-I HS 92 pg/mL High 3.0-78.0 [facility] Comment on above: Order Comment: 'TROP ' Serial specimen #1, #2 or #3: 1 Result Comment: Plea se Note: New Test Units and Gender Specific Reference Ranges. For more information see Policy Stat Procedure [place] High Sensitivity Troponin (TNIH) and attachments. Performed By: #### L 501.4021, L506.0400, L501.9520, L100.0100, L503.7505, L500.2500 #### [facility] [address] [place], [address] M100.678on 09-25-2024 M100.678 Pending SARS-CoV-2 (COVID 19) Negative INFLUENZA A Negative INFLUENZA B Negative RSV PCR Negative Normal [facility] Comment on above: Performed By: #### L 501.4021, L506.0400, L501.9520, L100.0100, L503.7505, L500.2500 #### [facility] [address] [place], [address] Venous Duplex Imag/Cj Extre [facility] 09-25-2024 Venous Duplex Imag/Cj Extrem [facility] Imaging Services [address] [place] [address] Venous Duplex Imag/Cj Extrem MR#: [id number] Acct: [id number] Name: LATONYA ELDER Rep #: [id number] : 1970 M 54 From: Kj myers MD PCP: Dr. Beka Bowie MD Status: DEP ER Study: Venous Duplex Imag/Cj Extrem Date of Exam: Exam# [id number] Ordering Dr: Brennon Mckeon DO ADDENDUM by Dr. Kj Brown MD on 09/25/24 at 2020 [id number] STUDY: VENOUS DOPPLER ULTRASOUND - BILATERAL [...] confirms receipt of the report will follow. [id number] STUDY: VENOUS DOPPLER ULTRASOUND - BILATERAL LOWER EXTREMITIES REASON FOR EXAM: Male, 54 years old. Elevated D-Dimers, leg swelling/tenderness TECHNIQUE: Ultrasound evaluation of the deep vein system to include dave-scale imaging and compression was performed. Daev-scale imaging and Doppler sonographic evaluation, including duplex [...] Femoral Distal (more content not included)... Normal [facility] CNOVon 03-17-2024 CNOV Office Visit (UCWSTR) ---- LATONYA ELDER ([id number]) 1970 M Date Time Provider Department 03/17/24 7:30 AM RAD RENEE [facility] During your visit today, we recorded the following information about you: Temperature Pulse Respiration Blood pressure 97.2 degrees 72/minute 16/minute 162/90 Weight 107.9 kg Rad Renee APRN.RADIOLOGIST DIAGNOSTIC 03/17/2024 7:43 AM Signed This note was created using [employer]. Subjective Latonya Elder is a 53 year [...] Date Reviewed: 03/17/2024 Reviewed by: Rad Renee APRN.RADIOLOGIST DIAGNOSTIC - Fully Assessed Reason for Visit: Eye [...] (more content not included)... [facility] Basophil percentageOrdered B y: Anupam Zultea on 02-08-2024 Hemoglobin (Bld) [Mass/Vol] 15.7 g/dL 13.0-16.5 [facility] WBC (Bld) [#/Vol] 10.7 10*3/uL 4.4-11.0 [facility] Determination of erythrocyte mean corpuscular volume (MCV)Ordered By: Anupam Zuleta on 02-08-2024 MCV (RBC) [Entitic vol] 89.9 fL 80-94 [facility] Erythrocyte distribution wid th ratioOrdered By: Anupam Zuleta on 02-08-2024 Erythrocyte distribution width (RBC) [Ratio] 13.7 % 11.6-14.6 [facility] Erythrocyte distribution wid th standard deviationOrdered By: Anupam Zuleta on 02-08-2024 Erythrocyte distribution width (RBC) [Entitic vol] 44.6 fL 35.1-43.9 [facility] Hematocrit Auto (Bld) [Volum e fraction]Ordered By: Anupam Zuleta on 02-08-2024 Hematocrit (Bld) [Volume fraction] 48.3 % 40-54 [facility] - Hematology and Cell countsOrdered By: Anupam Zuleta on 02-08-2024 MCH (RBC) [Entitic mass] 29.2 pg 27.0-32.0 [facility] MCHC (RBC) [Mass/Vol] 32.5 g/dL 32-36 [facility] Platelet mean volume (Bld) [Entitic vol] 10.4 fL 6.2-12.0 [facility] Platelets (Bld) [#/Vol] 270 10*3/uL 150-450 [facility] RBC Auto (Bld) [#/Vol]Ordere d By: Anupam Zuleta on 02-08-2024 RBC (Bld) [#/Vol] 5.37 10*6/uL 4.6-6.2 [facility] Gram stain for investigation of transfusion reactionOrdered By: Anupam Zuleta on 12-31-2023 Microscopic observation Gram stain Nom (Unsp spec) [facility] Microscopic observation Gram stain Nom (Unsp spec) [facility] Microbial respiratory cultur eOrdered By: Anupam Zuleta on 12-31-2023 Bacteria identified Respiratory culture Nom (Unsp spec) or Staphylococcus aureus isolated. [facility] Bacteria identified Respiratory culture Nom (Unsp spec) or Staphylococcus aureus isolated. [facility] Basophil percentageOrdered B y: Luis Villeda on 12-26-2023 Bilirubin [Mass/Vol] 0.90 mg/dL 0.20-1.00 [facility] Comment on above: For patients on eltr ombopag therapy, use of Dimension [place] TBIL is not recommended. Chloride [Moles/Vol] 107 mmol/L 98-107 [facility] Cholesterol [Mass/Vol] 178 mg/dL <200 [facility] Comment on above: <200 mg/dL Desirable 200-240 mg/dL Borderline >240 mg/dL High Risk Glucose [Mass/Vol] 76 mg/dL 74-106 [facility] Hemoglobin (Bld) [Mass/Vol] 15.0 g/dL 13.0-16.5 [facility] Potassium [Moles/Vol] 3.5 mmol/L 3.5-5.1 [facility] Protein [Mass/Vol] 6.9 g/dL 6.4-8.2 [facility] Sodium [Moles/Vol] 138 mmol/L 136-145 [facility] Triglyceride [Mass/Vol] 140 mg/dL <199 [facility] Comment on above: The drugs N-Acetylcy steine and Metamizole may falsely depress this assay.Serum Triglycerides Reference Interval Normal <150 mg/dL Borderline high 150 - 199 mg/dL High 200 - 499 mg/dL Very High > or = 500 mg/dL WBC (Bld) [#/Vol] 11.5 10*3/uL 4.4-11.0 [facility] Determination of erythrocyte mean corpuscular volume (MCV)Ordered By: Luis Villeda on 12-26-2023 MCV (RBC) [Entitic vol] 88.0 fL 80-94 [facility] Erythrocyte distribution wid th ratioOrdered By: Luiskaron Villeda on 12-26-2023 Erythrocyte distribution width (RBC) [Ratio] 13.6 % 11.6-14.6 [facility] Erythrocyte distribution wid th standard deviationOrdered By: Luis Ronal on 12-26-2023 Erythrocyte distribution width (RBC) [Entitic vol] 43.9 fL 35.1-43.9 [facility] Hematocrit Auto (Bld) [Volum e fraction]Ordered By: Luis Ronal on 12-26-2023 Hematocrit (Bld) [Volume fraction] 44.8 % 40-54 [facility] Laboratory - Chemistry and C hemistry - challengeOrdered By: Luis Villeda on 12-26-2023 Albumin/Globulin [Mass ratio] 1.0 {ratio} 0.9-2.4 [facility] ALP [Catalytic activity/Vol] 107 U/L 45-117 [facility] ALT [Catalytic activity/Vol] 33 U/L 16-61 [facility] Cholesterol in HDL [Mass/Vol] 39 mg/dL >40 [facility] Comment on above: The drugs N-Acetylcy steine and Metamizole may falsely depress this assay. Reference Range HDL <40 mg/dL Low HDL Cholesterol HDL >or= 60 mg/dL High HDL Cholesterol Cholesterol in LDL [Mass/Vol] 111 mg/dL 0-130 [facility] CO2 [Moles/Vol] 23.0 mmol/L 21.0-32.0 [facility] Globulin (S) [Mass/Vol] 3.4 g/dL 2.2-4.2 [facility] Urea nitrogen/Creatinine [Mass ratio] 14.5 mg/mg 10-20 [facility] Laboratory - Hematology and Cell countsOrdered By: Luis Villeda on 12-26-2023 MCH (RBC) [Entitic mass] 29.5 pg 27.0-32.0 [facility] MCHC (RBC) [Mass/Vol] 33.5 g/dL 32-36 [facility] Platelet mean volume (Bld) [Entitic vol] 10.6 fL 6.2-12.0 [facility] Platelets (Bld) [#/Vol] 235 10*3/uL 150-450 [facility] No Panel InformationOrdered By: Maldonado Whitt on 12-26-2023 D-Dimer Quantitative (PE/DVT) < 0.27 FEU/ug/m 0.27-0.49 [facility] Comment on above: NORMAL D-Dimer level (<0.50) indicates no DVT or PE. No Panel InformationOrdered By: Luis Villeda on 12-26-2023 Estimated Creatinine Clearance Calc 121.06 ml/min [facility] Estimated GFR (MDRD) Amer 125 mL/min >60 [facility] Comment on above: GFR Calc Estimated GFR (MDRD) Non-Af Amer 103 mL/min >60 [facility] Comment on above: Non- GFR Calc VLDL Cholesterol 28 mg/dL 5-40 [facility] No Panel InformationOrdered By: Nasim Leblanc on 12-26-2023 Ethyl Alcohol Level < 3.0 mg/dL [facility] Comment on above: The serum:whole bloo d ethanol ratio is approximately 1.14and varies slightly with hematocrit. Medical Alcohol reference interval and critical value innon-tolerant individuals; 50 - 100 Impairment 100 Intoxication 100 - 250 Severe Poisoning 250 - 400 Deep/possible fatal coma RBC Auto (Bld) [#/Vol]Ordere d By: Luis Villeda on 12-26-2023 RBC (Bld) [#/Vol] 5.09 10*6/uL 4.6-6.2 [facility] Serum or plasma calcium jessica urement (mass/volume)Ordered By: Luis Villeda on 12-26-2023 Calcium [Mass/Vol] 9.4 mg/dL 8.5-10.1 [facility] Serum or plasma creatinine m easurement (mass/volume)Ordered By: Luis Villeda on 12-26-2023 Creatinine [Mass/Vol] 0.83 mg/dL 0.70-1.30 [facility] Comment on above: The validity of the calculated GFR & GFRAA in patients over 70 years has not been determined. Clinical correlation is essential. Serum or plasma urea nitroge n measurement (mass/volume)Ordered By: Luis Villeda on 12-26-2023 Urea nitrogen [Mass/Vol] 12 mg/dL 7-18 [facility] Thin prep Papanicolaou smear with manual screeningOrdered By: Luis Villeda on 12-26-2023 Thin prep Papanicolaou smear with manual screening 3.5 g/dL 3.2-5.0 [facility] Thin prep Papanicolaou smear with manual screening 16 U/L 15-37 [facility] Thin prep Papanicolaou smear with manual screening 8 5-15 [facility] Thin prep Papanicolaou smear with manual screeningOrdered By: Maldonado Whitt on 12-26-2023 Thin prep Papanicolaou smear with manual screening 86 mg/dL 74-106 [facility] Comment on above: MANAGEMENT OF PATIEN T CARE PER NURSING PROTOCOL Absolute lymphocyte countOrd ered By: Mary Lewis on 12-25-2023 Lymphocytes Auto (Unsp spec) [#/Vol] 2.00 10*3/uL 0.83-4.51 [facility] Activated partial thrombopla stin time (aPTT) in platelet poor plasma by coagulation aOrdered By: Mary Lewis on 12-25-2023 aPTT Coag (PPP) [Time] 31.7 s 24.1-36.2 [facility] Automated lymphocyte count a s percentage of total leukocytesOrdered By: Mary Lewis on 12-25-2023 Lymphocytes/100 WBC Auto (Unsp spec) 14.1 % 19-41 [facility] Basophil percentageOrdered B y: Mary Lewis on 12-25-2023 Basophils/100 WBC (Bld) 0.4 % 0-1 [facility] Eosinophils/100 WBC (Bld) 1.0 % 0-5 [facility] Monocytes/100 WBC (Bld) 8.8 % 0-10 [facility] Neutrophils (Bld) [#/Vol] 10.6 10*3/uL 2.0-7.7 [facility] Neutrophils/100 WBC (Bld) 75.1 % 47-70 [facility] Immature granulocytes/100 WB C Auto (Bld)Ordered By: Mary Lewis on 12-25-2023 Immature granulocytes/100 WBC (Bld) 0.600 % 0.0-0.9 [facility] Comment on above: IG% - Immature Granu locytes (promyelocytes, myelocytes and metamyelocytes) > 1% indicates that a LEFT SHIFT is Present. Laboratory - Chemistry and C hemistry - challengeOrdered By: Nasim Leblanc on 12-25-2023 Amylase [Catalytic activity/Vol] 24 U/L 15-85 [facility] Laboratory - Chemistry and C hemistry - challengeOrdered By: Mary eLwis on 12-25-2023 Magnesium [Mass/Vol] 1.8 mg/dL 1.6-2.6 [facility] Laboratory - Hematology and Cell countsOrdered By: Mary Lewis on 12-25-2023 Nucleated RBC/100 WBC (Bld) [Ratio] 0 % 0-5 [facility] No Panel InformationOrdered By: Maldonado Whitt on 12-25-2023 Activated Clotting Time 228 sec 74-137 [facility] Activated Clotting Time 228 sec 74-137 [facility] Serum or plasma thyroid stim ulating hormone (TSH) measurement (units/volume)Ordered By: Mary Lewis on 12-25-2023 TSH Qn 1.74 uIU/mL 0.358-3.74 [facility] Whole blood hemoglobin A1c/t otal hemoglobin ratio (mass fraction)Ordered By: Mary Lewis on 12-25-2023 HbA1c (Bld) [Mass fraction] 7.3 % 3.8-5.6 [facility] Comment on above: Normal < 5.7 % Predi abetic 5.7 - 6.4 % Diabetic >or= 6.5 % Please note range changes. Absolute lymphocyte countOrd ered By: Pollo Bond on 12-24-2023 Lymphocytes Auto (Unsp spec) [#/Vol] 2.44 10*3/uL 0.83-4.51 [facility] Activated partial thrombopla stin time (aPTT) in platelet poor plasma by coagulation aOrdered By: Pollo Bond on 12-24-2023 aPTT Coag (PPP) [Time] 24.7 s 24.1-36.2 [facility] Automated lymphocyte count a s percentage of total leukocytesOrdered By: Pollo Bond on 12-24-2023 Lymphocytes/100 WBC Auto (Unsp spec) 20.4 % 19-41 [facility] Basophil percentageOrdered B y: Pollo Bond on 12-24-2023 Basophils/100 WBC (Bld) 0.7 % 0-1 [facility] Chloride [Moles/Vol] 104 mmol/L 98-107 [facility] Eosinophils/100 WBC (Bld) 0.9 % 0-5 [facility] Glucose [Mass/Vol] 286 mg/dL 74-106 [facility] Comment on above: Glucose result great er than or equal to 200 mg/dLsuggests DIABETES MELLITUS per A.D.A. criteria. Hemoglobin (Bld) [Mass/Vol] 17.3 g/dL 13.0-16.5 [facility] Monocytes/100 WBC (Bld) 10.0 % 0-10 [facility] Neutrophils (Bld) [#/Vol] 8.1 10*3/uL 2.0-7.7 [facility] Neutrophils/100 WBC (Bld) 67.1 % 47-70 [facility] Potassium [Moles/Vol] 3.6 mmol/L 3.5-5.1 [facility] Sodium [Moles/Vol] 141 mmol/L 136-145 [facility] WBC (Bld) [#/Vol] 12.0 10*3/uL 4.4-11.0 [facility] Determination of erythrocyte mean corpuscular volume (MCV)Ordered By: Pollo Bond on 12-24-2023 MCV (RBC) [Entitic vol] 88.3 fL 80-94 [facility] Erythrocyte distribution wid th ratioOrdered By: Pollo Bond on 12-24-2023 Erythrocyte distribution width (RBC) [Ratio] 13.5 % 11.6-14.6 [facility] Erythrocyte distribution wid th standard deviationOrdered By: Pollo Bond on 12-24-2023 Erythrocyte distribution width (RBC) [Entitic vol] 43.1 fL 35.1-43.9 [facility] Hematocrit Auto (Bld) [Volum e fraction]Ordered By: Pollo Bond on 12-24-2023 Hematocrit (Bld) [Volume fraction] 51.4 % 40-54 [facility] Immature granulocytes/100 WB C Auto (Bld)Ordered By: Pollo Bond on 12-24-2023 Immature granulocytes/100 WBC (Bld) 0.900 % 0.0-0.9 [facility] Comment on above: IG% - Immature Granu locytes (promyelocytes, myelocytes and metamyelocytes) > 1% indicates that a LEFT SHIFT is Present. International normalized rat io (INR) calculationOrdered By: Pollo Bond on 12-24-2023 INR Coag (PPP) [Relative time] 0.9 {INR} [facility] Laboratory - Chemistry and C hemistry - challengeOrdered By: Pollo Bond on 12-24-2023 CO2 [Moles/Vol] 28.0 mmol/L 21.0-32.0 [facility] Natriuretic peptide B (Bld) [Mass/Vol] 103.6 pg/mL 0-100 [facility] Urea nitrogen/Creatinine [Mass ratio] 12.4 mg/mg 10-20 [facility] Laboratory - CoagulationOrde red By: Pollo Bond on 12-24-2023 PT Coag (PPP) [Time] 12.0 s 11.7-14.9 [facility] Laboratory - Hematology and Cell countsOrdered By: Pollo Bond on 12-24-2023 MCH (RBC) [Entitic mass] 29.7 pg 27.0-32.0 [facility] MCHC (RBC) [Mass/Vol] 33.7 g/dL 32-36 [facility] Nucleated RBC/100 WBC (Bld) [Ratio] 0 % 0-5 [facility] Platelets (Bld) [#/Vol] 274 10*3/uL 150-450 [facility] No Panel InformationOrdered By: Mary Lewis on 12-24-2023 Troponin I High Sensitivity 387 pg/mL 3.0-78.0 [facility] Comment on above: Critical Result(s) C alled at: 21:25:09 12/24/2023 by: ROSARIO GONZALES TO LUÍS DAWSON. Results read back by same. Please Note: New Test Units and Gender Specific Reference Ranges. For more information see Policy Stat Procedure [place] High Sensitivity Troponin (TNIH) and attachments. No Panel InformationOrdered By: Pollo Bond on 12-24-2023 Troponin I High Sensitivity 280 pg/mL 3.0-78.0 [facility] Comment on above: Critical Result(s) C alled at: 15:17:34 12/24/2023 by: Magda Irving to Moisés. Results read back by same. Please Note: New Test Units and Gender Specific Reference Ranges. For more information see Policy Stat Procedure [place] High Sensitivity Troponin (TNIH) and attachments. D-Dimer Quantitative (PE/DVT) 0.47 FEU/ug/m 0.27-0.49 [facility] Comment on above: NORMAL D-Dimer level (<0.50) indicates no DVT or PE. Estimated GFR (MDRD) Amer 88 mL/min >60 [facility] Comment on above: GFR Calc Estimated GFR (MDRD) Non-Af Amer 72 mL/min >60 [facility] Comment on above: Non- GFR Calc Platelet mean volume James-Ec ker (Bld) [Entitic vol]Ordered By: Pollo Bond on 12-24-2023 Platelet mean volume (Bld) [Entitic vol] 10.9 fL 6.2-12.0 [facility] RBC Auto (Bld) [#/Vol]Ordere d By: Pollo Bond on 12-24-2023 RBC (Bld) [#/Vol] 5.82 10*6/uL 4.6-6.2 [facility] Serum or plasma calcium jessica urement (mass/volume)Ordered By: Pollo Bond on 12-24-2023 Calcium [Mass/Vol] 9.8 mg/dL 8.5-10.1 [facility] Serum or plasma creatinine m easurement (mass/volume)Ordered By: Pollo Bond on 12-24-2023 Creatinine [Mass/Vol] 1.13 mg/dL 0.70-1.30 [facility] Comment on above: The validity of the calculated GFR & GFRAA in patients over 70 years has not been determined. Clinical correlation is essential. Serum or plasma urea nitroge n measurement (mass/volume)Ordered By: Pollo Bond on 12-24-2023 Urea nitrogen [Mass/Vol] 14 mg/dL 7-18 [facility] Thin prep Papanicolaou smear with manual screeningOrdered By: Pollo Bond on 12-24-2023 Thin prep Papanicolaou smear with manual screening 9 5-15 [facility] Absolute lymphocyte countOrd ered By: Luis York on 11-21-2023 Lymphocytes Auto (Unsp spec) [#/Vol] 2.69 10*3/uL 0.83-4.51 [facility] Basophil percentageOrdered B y: Luis York on 11-21-2023 Basophils/100 WBC (Bld) 0.5 % 0-1 [facility] Chloride [Moles/Vol] 107 mmol/L 98-107 [facility] Eosinophils/100 WBC (Bld) 2.0 % 0-5 [facility] Glucose [Mass/Vol] 162 mg/dL 74-106 [facility] Comment on above: Fasting Glucose resu lt greater than or equal to 126 mg/dL suggests DIABETES MELLITUS per A.D.A. criteria. Neutrophils (Bld) [#/Vol] 6.6 10*3/uL 2.0-7.7 [facility] Neutrophils/100 WBC (Bld) 62.0 % 47-70 [facility] Potassium [Moles/Vol] 3.8 mmol/L 3.5-5.1 [facility] Sodium [Moles/Vol] 139 mmol/L 136-145 [facility] WBC (Bld) [#/Vol] 10.7 10*3/uL 4.4-11.0 [facility] Blood erythrocytes count (nu mber/volume)Ordered By: Luis York on 11-21-2023 RBC (Bld) [#/Vol] 4.94 10*6/uL 4.6-6.2 [facility] Blood hemoglobin measurement (mass/volume)Ordered By: Luis York on 11-21-2023 Hemoglobin (Bld) [Mass/Vol] 15.0 g/dL 13.0-16.5 [facility] Blood lymphocytes/100 leukoc ytesOrdered By: Luis York on 11-21-2023 Lymphocytes/100 WBC (Bld) 25.2 % 19-41 [facility] Blood monocytes/100 leukocyt esOrdered By: Luis York on 11-21-2023 Monocytes/100 WBC (Bld) 9.8 % 0-10 [facility] Blood platelet mean volumeOr dered By: Luis York on 11-21-2023 Platelet mean volume (Bld) [Entitic vol] 10.0 fL 6.2-12.0 [facility] Determination of erythrocyte mean corpuscular volume (MCV)Ordered By: Luis York on 11-21-2023 MCV (RBC) [Entitic vol] 88.3 fL 80-94 [facility] Hematocrit Auto (Bld) [Volum e fraction]Ordered By: Luis York on 11-21-2023 Hematocrit (Bld) [Volume fraction] 43.6 % 40-54 [facility] Laboratory - Chemistry and C hemistry - challengeOrdered By: Luis York on 11-21-2023 CO2 [Moles/Vol] 28.0 mmol/L 21.0-32.0 [facility] Urea nitrogen/Creatinine [Mass ratio] 16.7 mg/mg 10-20 [facility] Laboratory - Hematology and Cell countsOrdered By: Luis York on 11-21-2023 Erythrocyte distribution width (RBC) [Entitic vol] 43.4 fL 35.1-43.9 [facility] Erythrocyte distribution width (RBC) [Ratio] 13.3 % 11.6-14.6 [facility] Immature granulocytes/100 WBC (Bld) 0.500 % 0.0-0.9 [facility] Comment on above: IG% - Immature Granu locytes (promyelocytes, myelocytes and metamyelocytes) > 1% indicates that a LEFT SHIFT is Present. MCH (RBC) [Entitic mass] 30.4 pg 27.0-32.0 [facility] Nucleated RBC/100 WBC (Bld) [Ratio] 0 % 0-5 [facility] MCHC Auto (RBC) [Mass/Vol]Or dered By: Luis York on 11-21-2023 MCHC (RBC) [Mass/Vol] 34.4 g/dL 32-36 [facility] No Panel InformationOrdered By: Luis York on 11-21-2023 Troponin I High Sensitivity 40 pg/mL 3.0-78.0 [facility] Comment on above: Please Note: New Sirisha t Units and Gender Specific Reference Ranges. For more information see Policy Stat Procedure [place] High Sensitivity Troponin (TNIH) and attachments. Estimated Creatinine Clearance Calc 73.33 ml/min [facility] Estimated GFR (MDRD) Amer 87 mL/min >60 [facility] Comment on above: GFR Calc Estimated GFR (MDRD) Non-Af Amer 72 mL/min >60 [facility] Comment on above: Non- GFR Calc Platelets bldOrdered By: Ousmane York on 11-21-2023 Platelets (Bld) [#/Vol] 260 10*3/uL 150-450 [facility] Serum or plasma calcium jessica urement (mass/volume)Ordered By: Luis York on 11-21-2023 Calcium [Mass/Vol] 9.4 mg/dL 8.5-10.1 [facility] Serum or plasma creatinine m easurement (mass/volume)Ordered By: Luis York on 11-21-2023 Creatinine [Mass/Vol] 1.14 mg/dL 0.70-1.30 [facility] Comment on above: The validity of the calculated GFR & GFRAA in patients over 70 years has not been determined. Clinical correlation is essential. Serum or plasma urea nitroge n measurement (mass/volume)Ordered By: Luis York on 11-21-2023 Urea nitrogen [Mass/Vol] 19 mg/dL 7-18 [facility] Thin prep Papanicolaou smear with manual screeningOrdered By: Luis York on 11-21-2023 Thin prep Papanicolaou smear with manual screening 4 5-15 [facility] Absolute lymphocyte counton 06-26-2022 Lymphocytes Auto (Unsp spec) [#/Vol] 3.53 10*3/uL 0.83-4.51 [facility] Work Phone: Lymphocytes Auto (Unsp spec) [#/Vol] 3.42 10*3/uL 0.83-4.51 [facility] Work Phone: Basophil percentageon 06-26- 2021 Basophils/100 WBC (Bld) 0.6 % 0-1 [facility] Work Phone: Bilirubin [Mass/Vol] 0.50 mg/dL 0.20-1.00 [facility] Work Phone: Comment on above: For patients on eltr ombopag therapy, use of Dimension [place] TBIL is not recommended. Chloride [Moles/Vol] 106 mmol/L 98-107 [facility] Work Phone: Eosinophils/100 WBC (Bld) 2.3 % 0-5 [facility] Work Phone: Glucose [Mass/Vol] 157 mg/dL 74-106 [facility] Work Phone: Comment on above: Fasting Glucose resu lt greater than or equal to 126 mg/dL suggests DIABETES MELLITUS per A.D.A. criteria. Neutrophils (Bld) [#/Vol] 7.3 10*3/uL 2.0-7.7 [facility] Work Phone: Neutrophils/100 WBC (Bld) 58.6 % 47-70 [facility] Work Phone: Potassium [Moles/Vol] 4.6 mmol/L 3.5-5.1 [facility] Work Phone: Comment on above: Moderate Hemolysis, Result may be falsely increased. Protein [Mass/Vol] 7.1 g/dL 6.4-8.2 [facility] Work Phone: Sodium [Moles/Vol] 138 mmol/L 136-145 [facility] Work Phone: WBC (Bld) [#/Vol] 12.5 10*3/uL 4.4-11.0 [facility] Work Phone: Basophils/100 WBC (Bld) 0.5 % 0-1 [facility] Work Phone: Chloride [Moles/Vol] 107 mmol/L 98-107 [facility] Work Phone: Eosinophils/100 WBC (Bld) 2.1 % 0-5 [facility] Work Phone: Glucose [Mass/Vol] 186 mg/dL 74-106 [facility] Work Phone: Comment on above: Fasting Glucose resu lt greater than or equal to 126 mg/dL suggests DIABETES MELLITUS per A.D.A. criteria. Neutrophils (Bld) [#/Vol] 8.0 10*3/uL 2.0-7.7 [facility] Work Phone: Neutrophils/100 WBC (Bld) 60.9 % 47-70 [facility] Work Phone: Potassium [Moles/Vol] 3.8 mmol/L 3.5-5.1 [facility] Work Phone: Sodium [Moles/Vol] 140 mmol/L 136-145 [facility] Work Phone: WBC (Bld) [#/Vol] 13.1 10*3/uL 4.4-11.0 [facility] Work Phone: Blood erythrocytes count (nu mber/volume)on 06-26-2022 RBC (Bld) [#/Vol] 4.86 10*6/uL 4.6-6.2 [facility] Work Phone: RBC (Bld) [#/Vol] 4.94 10*6/uL 4.6-6.2 [facility] Work Phone: Blood hemoglobin measurement (mass/volume)on 06-26-2022 Hemoglobin (Bld) [Mass/Vol] 14.8 g/dL 13.0-16.5 [facility] Work Phone: Hemoglobin (Bld) [Mass/Vol] 15.6 g/dL 13.0-16.5 [facility] Work Phone: Blood lymphocytes/100 leukoc yteson 06-26-2022 Lymphocytes/100 WBC (Bld) 28.3 % 19-41 [facility] Work Phone: [phone] Lymphocytes/100 WBC (Bld) 26.1 % 19-41 [facility] Work Phone: Blood monocytes/100 leukocyt eson 06-26-2022 Monocytes/100 WBC (Bld) 9.6 % 0-10 [facility] Work Phone: [phone] Monocytes/100 WBC (Bld) 9.7 % 0-10 [facility] Work Phone: Blood platelet mean volumeon 06-26-2022 Platelet mean volume (Bld) [Entitic vol] 10.5 fL 6.2-12.0 [facility] Work Phone: [phone] Platelet mean volume (Bld) [Entitic vol] 10.1 fL 6.2-12.0 [facility] Work Phone: [phone] Determination of erythrocyte mean corpuscular volume (MCV)on 06-26-2022 MCV (RBC) [Entitic vol] 90.1 fL 80-94 [facility] Work Phone: [phone] MCV (RBC) [Entitic vol] 89.1 fL 80-94 [facility] Work Phone: [phone] Glucose Glucometer (dC) [M ass/Vol]on 06-26-2022 Glucose [Mass/Vol] 217 mg/dL 74-106 [facility] Work Phone: Comment on above: MANAGEMENT OF PATIEN T CARE PER NURSING PROTOCOL Hematocrit Auto (Bld) [Volum e fraction]on 06-26-2022 Hematocrit (Bld) [Volume fraction] 43.8 % 40-54 [facility] Work Phone: [phone] Hematocrit (Bld) [Volume fraction] 44.0 % 40-54 [facility] Work Phone: INR in Blood by Coagulation assayon 06-26-2022 INR Coag (Bld) [Relative time] 0.9 {INR} [facility] Work Phone: [phone] Laboratory - Chemistry and C hemistry - challengeon 06-26-2022 ALP [Catalytic activity/Vol] 84 U/L 45-117 [facility] Work Phone: [phone] ALT [Catalytic activity/Vol] 22 U/L 16-61 [facility] Work Phone: [phone] CO2 [Moles/Vol] 27.0 mmol/L 21.0-32.0 [facility] Work Phone: Globulin (S) [Mass/Vol] 3.9 g/dL 2.2-4.2 [facility] Work Phone: Urea nitrogen/Creatinine [Mass ratio] 19.6 mg/mg 10- [facility] Work Phone: [phone] CO2 [Moles/Vol] 28.0 mmol/L 21.0-32.0 [facility] Work Phone: [phone] Magnesium [Mass/Vol] 2.1 mg/dL 1.6-2.6 [facility] Work Phone: Urea nitrogen/Creatinine [Mass ratio] 16.5 mg/mg 10-20 [facility] Work Phone: Laboratory - Coagulationon 0 06-26-2022 aPTT Coag (Bld) [Time] 23.9 s 24.1-36.2 [facility] Work Phone: PT Coag (PPP) [Time] 11.8 s 11.7-14.9 [facility] Work Phone: Laboratory - Hematology and Cell countson 06-26-2022 Erythrocyte distribution width (RBC) [Entitic vol] 45.3 fL 35.1-43.9 [facility] Work Phone: Erythrocyte distribution width (RBC) [Ratio] 13.8 % 11.6-14.6 [facility] Work Phone: Immature granulocytes/100 WBC (Bld) 0.600 % 0.0-0.9 [facility] Work Phone: [phone] Comment on above: IG% - Immature Granu locytes (promyelocytes, myelocytes and metamyelocytes) > 1% indicates that a LEFT SHIFT is Present. MCH (RBC) [Entitic mass] 30.5 pg 27.0-32.0 [facility] Work Phone: [phone] Nucleated RBC/100 WBC (Bld) [Ratio] 0 % 0-5 [facility] Work Phone: [phone] Erythrocyte distribution width (RBC) [Entitic vol] 43.9 fL 35.1-43.9 [facility] Work Phone: [phone] Erythrocyte distribution width (RBC) [Ratio] 13.4 % 11.6-14.6 [facility] Work Phone: [phone] Immature granulocytes/100 WBC (Bld) 0.700 % 0.0-0.9 [facility] Work Phone: [phone] Comment on above: IG% - Immature Granu locytes (promyelocytes, myelocytes and metamyelocytes) > 1% indicates that a LEFT SHIFT is Present. MCH (RBC) [Entitic mass] 31.6 pg 27.0-32.0 [facility] Work Phone: [phone] Nucleated RBC/100 WBC (Bld) [Ratio] 0 % 0-5 [facility] Work Phone: [phone] MCHC Auto (RBC) [Mass/Vol]on 06-26-2022 MCHC (RBC) [Mass/Vol] 33.8 g/dL 32-36 [facility] Work Phone: [phone] MCHC (RBC) [Mass/Vol] 35.5 g/dL -36 [facility] Work Phone: [phone] Panel Informationon 06-26 Estimated Creatinine Clearance Calc 98.28 ml/min [facility] Work Phone: [phone] Estimated GFR (MDRD) Amer 119 mL/min >60 [facility] Work Phone: Comment on above: GFR Calc Estimated GFR (MDRD) Non-Af Amer 99 mL/min >60 [facility] Work Phone: Comment on above: Non- GFR Calc Troponin I High Sensitivity 127 pg/mL 3.0-78.0 [facility] Work Phone: Comment on above: Critical Result(s) C alled at: 07:54:30 06/26/2022 by: Magda Melvin. Results read back by same. Please Note: New Test Units and Gender Specific Reference Ranges. For more information see Policy Stat Procedure [place] High Sensitivity Troponin (TNIH) and attachments. Troponin I High Sensitivity 118 pg/mL 3.0-78.0 [facility] Work Phone: Comment on above: Please Note: New Sirisha t Units and Gender Specific Reference Ranges. For more information see Policy Stat Procedure [place] High Sensitivity Troponin (TNIH) and attachments. Estimated Creatinine Clearance Calc 78.44 ml/min [facility] Work Phone: Estimated GFR (MDRD) Amer 92 mL/min >60 [facility] Work Phone: Comment on above: GFR Calc Estimated GFR (MDRD) Non-Af Amer 76 mL/min >60 [facility] Work Phone: Comment on above: Non- GFR Calc Platelets bldon 06-26-2022 Platelets (Bld) [#/Vol] 239 10*3/uL 150-450 [facility] Work Phone: Platelets (Bld) [#/Vol] 221 10*3/uL 150-450 [facility] Work Phone: [phone] Serum or plasma albumin jessica urement (mass/volume)on 06-26-2022 Albumin [Mass/Vol] 3.2 g/dL 3.2-5.0 [facility] Work Phone: [phone] Serum or plasma albumin/glob ulin mass ratioon 06-26-2022 Albumin/Globulin [Mass ratio] 0.8 {ratio} 0.9-2.4 [facility] Work Phone: Serum or plasma calcium jessica urement (mass/volume)on 06-26-2022 Calcium [Mass/Vol] 8.4 mg/dL 8.5-10.1 [facility] Work Phone: [phone] Calcium [Mass/Vol] 9.2 mg/dL 8.5-10.1 [facility] Work Phone: [phone] Serum or plasma creatinine m easurement (mass/volume)on 06-26-2022 Creatinine [Mass/Vol] 0.87 mg/dL 0.70-1.30 [facility] Work Phone: [phone] Comment on above: The validity of the calculated GFR & GFRAA in patients over 70 years has not been determined. Clinical correlation is essential. Creatinine [Mass/Vol] 1.09 mg/dL 0.70-1.30 [facility] Work Phone: Comment on above: The validity of the calculated GFR & GFRAA in patients over 70 years has not been determined. Clinical correlation is essential. Serum or plasma urea nitroge n measurement (mass/volume)on 06-26-2022 Urea nitrogen [Mass/Vol] 17 mg/dL 7-18 [facility] Work Phone: [phone] Urea nitrogen [Mass/Vol] 18 mg/dL 7-18 [facility] Work Phone: [phone] Thin prep Papanicolaou smear with manual screeningon 06-26-2022 Thin prep Papanicolaou smear with manual screening 31 U/L 15-37 [facility] Work Phone: [phone] Comment on above: Moderate Hemolysis, Result may be falsely increased. Thin prep Papanicolaou smear with manual screening 5 5-15 [facility] Work Phone: [phone] Thin prep Papanicolaou smear with manual screening 5 5-15 [facility] Work Phone: [phone] Absolute lymphocyte counton 04-27-2022 Lymphocytes Auto (Unsp spec) [#/Vol] 3.16 10*3/uL 0.83-4.51 [facility] Work Phone: [phone] Basophil percentageon 2021 Basophils/100 WBC (Bld) 0.3 % 0-1 [facility] Work Phone: Chloride [Moles/Vol] 102 mmol/L 98-107 [facility] Work Phone: Eosinophils/100 WBC (Bld) 1.3 % 0-5 [facility] Work Phone: Glucose [Mass/Vol] 119 mg/dL 74-106 [facility] Work Phone: Comment on above: Fasting Glucose resu lt from 100 to 125 mg/dL suggests IMPAIRED HOMEOSTASIS per A.D.A. criteria. Neutrophils (Bld) [#/Vol] 9.8 10*3/uL 2.0-7.7 [facility] Work Phone: Neutrophils/100 WBC (Bld) 66.9 % 47-70 [facility] Work Phone: Potassium [Moles/Vol] 3.4 mmol/L 3.5-5.1 [facility] Work Phone: Sodium [Moles/Vol] 137 mmol/L 136-145 [facility] Work Phone: WBC (Bld) [#/Vol] 14.6 10*3/uL 4.4-11.0 [facility] Work Phone: Blood erythrocytes count (nu mber/volume)on 04-27-2022 RBC (Bld) [#/Vol] 4.94 10*6/uL 4.6-6.2 [facility] Work Phone: Blood hemoglobin measurement (mass/volume)on 04-27-2022 Hemoglobin (Bld) [Mass/Vol] 14.8 g/dL 13.0-16.5 [facility] Work Phone: Blood lymphocytes/100 leukoc yteson 04-27-2022 Lymphocytes/100 WBC (Bld) 21.6 % 19-41 [facility] Work Phone: Blood monocytes/100 leukocyt eson 04-27-2022 Monocytes/100 WBC (Bld) 9.2 % 0-10 [facility] Work Phone: Blood platelet mean volumeon 04-27-2022 Platelet mean volume (Bld) [Entitic vol] 10.0 fL 6.2-12.0 [facility] Work Phone: Determination of erythrocyte mean corpuscular volume (MCV)on 04-27-2022 MCV (RBC) [Entitic vol] 89.3 fL 80-94 [facility] Work Phone: Glucose Glucometer (BldC) [M ass/Vol]on 04-27-2022 Glucose [Mass/Vol] 110 mg/dL 74-106 [facility] Work Phone: Comment on above: MANAGEMENT OF PATIEN T CARE PER NURSING PROTOCOL Hematocrit Auto (Bld) [Volum e fraction]on 04-27-2022 Hematocrit (Bld) [Volume fraction] 44.1 % 40-54 [facility] Work Phone: INR in Blood by Coagulation assayon 04-27-2022 INR Coag (Bld) [Relative time] 1.0 {INR} [facility] Work Phone: Laboratory - Chemistry and C hemistry - challengeon 04-27-2022 CO2 [Moles/Vol] 30.0 mmol/L 21.0-32.0 [facility] Work Phone: Urea nitrogen/Creatinine [Mass ratio] 16.2 mg/mg 10-20 [facility] Work Phone: Laboratory - Coagulationon 0 04-27-2022 aPTT Coag (Bld) [Time] 24.8 s 24[facility]1-36.2 [facility] Work Phone: PT Coag (PPP) [Time] 12.6 s 11.7-14.9 [facility] Work Phone: Laboratory - Hematology and Cell countson 04-27-2022 Erythrocyte distribution width (RBC) [Entitic vol] 45.2 fL 35.1-43.9 [facility] Work Phone: Erythrocyte distribution width (RBC) [Ratio] 14.0 % 11.6-14.6 [facility] Work Phone: Immature granulocytes/100 WBC (Bld) 0.700 % 0.0-0.9 [facility] Work Phone: Comment on above: IG% - Immature Granu locytes (promyelocytes, myelocytes and metamyelocytes) > 1% indicates that a LEFT SHIFT is Present. MCH (RBC) [Entitic mass] 30.0 pg 27.0-32.0 [facility] Work Phone: Nucleated RBC/100 WBC (Bld) [Ratio] 0 % 0-5 [facility] Work Phone: MCHC Auto (RBC) [Mass/Vol]on 04-27-2022 MCHC (RBC) [Mass/Vol] 33.6 g/dL 32-36 [facility] Work Phone: No Panel Informationon 04-27 Troponin I High Sensitivity 79 pg/mL 3.0-78.0 [facility] Work Phone: Comment on above: Please Note: New Sirisha t Units and Gender Specific Reference Ranges. For more information see Policy Stat Procedure [place] High Sensitivity Troponin (TNIH) and attachments. Estimated Creatinine Clearance Calc 86.36 ml/min [facility] Work Phone: Estimated GFR (MDRD) Amer 103 mL/min >60 [facility] Work Phone: [phone] Comment on above: GFR Calc Estimated GFR (MDRD) Non-Af Amer 85 mL/min >60 [facility] Work Phone: Comment on above: Non- GFR Calc Troponin I High Sensitivity 81 pg/mL 3.0-78.0 [facility] Work Phone: Comment on above: Please Note: New Sirisha t Units and Gender Specific Reference Ranges. For more information see Policy Stat Procedure [place] High Sensitivity Troponin (TNIH) and attachments. Platelets bldon 04-27-2022 Platelets (Bld) [#/Vol] 270 10*3/uL 150-450 [facility] Work Phone: Serum or plasma calcium jessica urement (mass/volume)on 04-27-2022 Calcium [Mass/Vol] 9.1 mg/dL 8.5-10.1 [facility] Work Phone: Serum or plasma creatinine m easurement (mass/volume)on 04-27-2022 Creatinine [Mass/Vol] 0.99 mg/dL 0.70-1.30 [facility] Work Phone: Comment on above: The validity of the calculated GFR & GFRAA in patients over 70 years has not been determined. Clinical correlation is essential. Serum or plasma urea nitroge n measurement (mass/volume)on 04-27-2022 Urea nitrogen [Mass/Vol] 16 mg/dL 7-18 [facility] Work Phone: Thin prep Papanicolaou smear with manual screeningon 04-27-2022 Thin prep Papanicolaou smear with manual screening 5 5-15 [facility] Work Phone: Laboratory - Hematology and Cell countson 03-30-2022 HbA1c (Bld) [Mass fraction] 6.1 % 4.2-6.3 [facility] Work Phone: Laboratory - Hematology and Cell countson 02-15-2022 HbA1c (Bld) [Mass fraction] 6.0 % [facility] Work Phone: Basophil percentageon 2021 Bilirubin [Mass/Vol] 0.30 mg/dL 0.20-1.00 [facility] Work Phone: Comment on above: For patients on eltr ombopag therapy, use of Dimension [place] TBIL is not recommended. Cholesterol [Mass/Vol] 125 mg/dL <200 [facility] Work Phone: Comment on above: <200 mg/dL Desirable 200-240 mg/dL Borderline >240 mg/dL High Risk Protein [Mass/Vol] 7.5 g/dL 6.4-8.2 [facility] Work Phone: Triglyceride [Mass/Vol] 68 mg/dL [facility] Work Phone: Comment on above: The drugs N-Acetylcy steine and Metamizole may falsely depress this assay.Serum Triglycerides Reference Interval Normal <150 mg/dL Borderline high 150 - 199 mg/dL High 200 - 499 mg/dL Very High > or = 500 mg/dL Direct bilirubinon Bilirubin.direct [Mass/Vol] 0.11 mg/dL 0.00-0.30 [facility] Work Phone: Laboratory - Chemistry and C hemistry - challengeon 01-18-2022 ALP [Catalytic activity/Vol] 89 U/L 45-117 [facility] Work Phone: ALT [Catalytic activity/Vol] 21 U/L 16-61 [facility] Work Phone: Globulin (S) [Mass/Vol] 4.0 g/dL 2.2-4.2 [facility] Work Phone: Serum or plasma albumin jessica urement (mass/volume)on 01-18-2022 Albumin [Mass/Vol] 3.5 g/dL 3.2-5.0 [facility] Work Phone: Serum or plasma cholesterol in HDL measurement (mass/volume)on 01-18-2022 Cholesterol in HDL [Mass/Vol] 41 mg/dL [facility] Work Phone: Comment on above: The drugs N-Acetylcy steine and Metamizole may falsely depress this assay. Reference Range HDL <40 mg/dL Low HDL Cholesterol HDL >or= 60 mg/dL High HDL Cholesterol Serum or plasma cholesterol in VLDL measurement (mass/volume)on 01-18-2022 Cholesterol in VLDL [Mass/Vol] 14 mg/dL 5-40 [facility] Work Phone: Serum or plasma low density lipoprotein (LDL) cholesterol measurement (mass/volume)on 01-18-2022 Cholesterol in LDL [Mass/Vol] 70 mg/dL 0-130 [facility] Work Phone: [phone] Thin prep Papanicolaou smear with manual screeningon 01-18-2022 Thin prep Papanicolaou smear with manual screening 12 U/L 15-37 [facility] Work Phone: Office Visit: Stephen 07-17-20 Dietary management education, guidance, and counseling (procedure) yes Invalid Interpretation Code [facility] Work Phone: [phone] Documentation of current medications (procedure) Done Invalid Interpretation Code [facility] Work Phone: [phone] Fall risk assessment No Invalid Interpretation Code [facility] Work Phone: [phone] Protein mass conc Done [facility] Work Phone: [phone] Lab Report: Basic Metabolic Profile (BMP)on 04-27-2017 Anion gap 4 mmol/L Low 5-15 [facility] Work Phone: [phone] Anion gap molar conc 4 mmol/L Low 5-15 [facility] Work Phone: [phone] BUN/Creatinine Ratio 14.3 RATIO Invalid Interpretation Code 10-20 [facility] Work Phone: [phone] Calcium 9.0 mg/dL Invalid Interpretation Code 8.5-10.1 [facility] Work Phone: [phone] Chloride 106 mmol/L Invalid Interpretation Code 98-107 [facility] Work Phone: [phone] CO2 32.0 mmol/L Invalid Interpretation Code 21.0-32.0 [facility] Work Phone: [phone] CO2 ppres (BldV) 32.0 mmol/L 21.0-32.[address] [facility] Work Phone: [phone] Creatinine 1.12 mg/dL Invalid Interpretation Code 0.70-1.[address] [facility] Work Phone: [phone] eGFR (non-black) 91 mL/min/{1.73_m2} Invalid Interpretation Code >[address] [facility] Work Phone: [phone] eGFR (non-black) 75 mL/min/{1.73_m2} Invalid Interpretation Code >[address] [facility] Work Phone: [phone] EST GFR - AA 91 mL/min >[address] [facility] Work Phone: [phone] Glucose 101 mg/dL Invalid Interpretation Code 70-110 [facility] Work Phone: [phone] Glucose mass conc 101 mg/dL 70-110 [facility] Work Phone: [phone] Potassium 4.5 mmol/L Invalid Interpretation Code 3.5-5.1 [facility] Work Phone: [phone] Sodium 142 mmol/L Invalid Interpretation Code 136-145 [facility] Work Phone: [phone] Urea nitrogen 16 mg/dL Invalid Interpretation Code 7-18 [facility] Work Phone: [phone] Lab Report: Lipid Profileon 04-27-2017 Cholesterol 135 mg/dL Invalid Interpretation Code 200 [facility] Work Phone: [phone] HDL Cholesterol 35 mg/dL Low [facility] Work Phone: [phone] LDL Cholesterol 81 mg/dL Invalid Interpretation Code 0-130 [facility] Work Phone: [phone] Triglyceride 97 mg/dL Invalid Interpretation Code [facility] Work Phone: [phone] very low density lipoproteins 19 mg/dL Invalid Interpretation Code 5-40 [facility] Work Phone: [phone] Lab Report: Liver Profileon 04-27-2017 Alanine aminotransferase (ALT) 56 U/L Invalid Interpretation Code 12-78 [facility] Work Phone: [phone] Albumin 3.7 g/dL Invalid Interpretation Code 3.4-5.0 [facility] Phone: [phone] Alkaline phosphatase (ALP) 100 U/L Invalid Interpretation Code 45-117 [facility] Work Phone: [phone] ALP enzyme act/vol (Bld) 100 U/L 45-117 [facility] Work Phone: [phone] Aspartate aminotransferase (AST) 17 U/L Invalid Interpretation Code 15-37 [facility] Work Phone: [phone] Bilirubin (direct) 0.13 mg/dL Invalid Interpretation Code 0.00-0.30 [facility] Work Phone: [phone] Bilirubin (total) 0.70 mg/dL Invalid Interpretation Code 0.20-1.00 [facility] Work Phone: [phone] Globulin 3.6 g/dL High 2.3-3.5 [facility] Work Phone: [phone] Globulin mass conc (S) 3.6 g/dL High 2.3-3.5 [facility] Work Phone: [phone] Protein 7.3 g/dL Invalid Interpretation Code 6.4-8.2 [facility] Work Phone: [phone] Office Visiton 04-27-2017 Dietary management education, guidance, and counseling (procedure) yes Invalid Interpretation Code [facility] Work Phone: [phone] Documentation of current medications (procedure) Done Invalid Interpretation Code [facility] Work Phone: [phone] Fall risk assessment No Invalid Interpretation Code [facility] Work Phone: [phone] Protein mass conc yes [facility] Work Phone: [phone] Smoking cessation education (procedure) yes Invalid Interpretation Code [facility] Work Phone: [phone] Tobacco smoking status NHIS Current every day smoker [facility] Work Phone: [phone] Tobacco use CPHS Current every day smoker Invalid Interpretation Code [facility] Work Phone: [phone] Office Visiton 02-06-2017 Documentation of current medications (procedure) Done Invalid Interpretation Code [facility] Work Phone: [phone] Fall risk assessment No Invalid Interpretation Code [facility] Work Phone: [phone] Replaced Document: Olya Villela Observationson 02-06-2017 EKG QRS axis 2 deg [facility] Work Phone: [phone] electrocardiogram interpretation 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 ABNORMAL [facility] Work Phone: [phone] P Wiggins 54 deg [facility] Work Phone: [phone] P wave axis, electrocardiogram 54 deg Invalid Interpretation Code [facility] Work Phone: [phone] AL Interval 160 ms [facility] Work Phone: [phone] AL interval, electrocardiogram 160 ms Invalid Interpretation Code [facility] Work Phone: [phone] Pulse (Heart Rate) 89 /min Invalid Interpretation Code [facility] Work Phone: [phone] QRS axis, electrocardiogram 2 deg Invalid Interpretation Code [facility] Work Phone: [phone] QRS Duration 96 ms [facility] Work Phone: [phone] QRS duration, electrocardiogram 96 ms Invalid Interpretation Code [facility] Work Phone: [phone] QT Interval new path ms [facility] Work Phone: [phone] QT interval, electrocardiogram new path ms Invalid Interpretation Code [facility] Work Phone: [phone] QTc Llanos 396 ms [facility] Work Phone: [phone] T Wiggins 26 deg [facility] Work Phone: [phone] T wave axis, electrocardiogram 26 deg Invalid Interpretation Code [facility] Work Phone: [phone] Office Visiton 12-27-2016 Smoking cessation education (procedure) yes Invalid Interpretation Code [facility] Work Phone: [phone] Tobacco smoking status NHIS Current every day smoker [facility] Work Phone: [phone] Tobacco use CPHS Current every day smoker Invalid Interpretation Code [facility] Work Phone: [phone] Clinical Lists Update: Prelo care transitions nurse 12-22-2016 Left ventricular Ejection fraction 60 % Invalid Interpretation Code [facility] Work Phone: [phone] Clinical Lists Update: Prelo care transitions nurse 12-10-2016 Cholesterol [Mass/Vol] 191 mg/dL [facility] Work Phone: [phone] Cholesterol in HDL [Mass/Vol] 28 mg/dL Low [facility] Work Phone: [phone] Cholesterol in LDL [Mass/Vol] 121 mg/dL [facility] Work Phone: [phone] Lipoprotein.pre-beta [Mass/Vol] 42 mg/dL High [facility] Work Phone: [phone] Triglyceride [Mass/Vol] 211 mg/dL High [facility] Work Phone: [phone] Vital Signs Date Time Vital Sign Value Performing Clinician Rebecca roberson 02-11-2025 14:06-0400 Body mass index (BMI) [Ratio] 36.1 kg/m2 Dr. Beka Bowie MD Work Phone: [facility] 02-11-2025 13:05-0400 Heart rate 91 /min Dr. Beka Bowie MD Work Phone: [facility] 02-11-2025 13:00-0400 Diastolic blood pressure 120 mm[Hg] Dr. Beka Bowie MD Work Phone: [facility] 02-11-2025 13:00-0400 Respiratory rate 20 /min Dr. Beka Bowie MD Work Phone: [facility] 02-11-2025 13:00-0400 SaO2% (BldA) [Mass fraction] 97 % Dr. Beka Bowie MD Work Phone: [facility] 02-11-2025 13:00-0400 Systolic blood pressure 182 mm[Hg] Dr. Beka Bowie MD Work Phone: [facility] 02-11-2025 12:00-0400 Body temperature 98.2 [degF] Dr. Beka Bowie MD Work Phone: [facility] 02-11-2025 09:26-0400 Inhaled oxygen flow rate 2 L/min Dr. Beka Bowie MD Work Phone: [facility] 02-11-2025 09:17-0400 Body height 172.[address] Beka Bowie MD Work Phone: [facility] 02-11-2025 09:17-0400 Body weight 107.[address] Beka Bowie MD Work Phone: [facility] 02-11-2025 00:00-0400 Diastolic blood pressure 111 mm[Hg] Dr. Beka Bowie MD Work Phone: [facility] 02-11-2025 00:00-0400 Heart rate 101 /min Dr. Beka Bowie MD Work Phone: [facility] 02-11-2025 00:00-0400 Respiratory rate 21 /min Dr. Beka Bowie MD Work Phone: [facility] 02-11-2025 00:00-0400 SaO2% (BldA) [Mass fraction] 95 % Dr. Beka Bowie MD Work Phone: [facility] 02-11-2025 00:00-0400 Systolic blood pressure 174 mm[Hg] Dr. Beka Bowie MD Work Phone: [facility] 02-10-2025 23:33-0400 Body temperature 98.7 [degF] Dr. Beka Bowie MD Work Phone: [facility] 02-10-2025 18:13-0400 Body height 172.[address] Beka Bowie MD Work Phone: [facility] 02-10-2025 18:13-0400 Body mass index (BMI) [Ratio] 36.3 kg/m2 Dr. Beka Bowie MD Work Phone: [facility] 02-10-2025 18:13-0400 Body weight 108.[address] Beka Bowie MD Work Phone: [facility] 03-17-2024 07:29-0400 Body temperature 97.2 [degF] Rad [place] DIRECT CARE PROFESSIONAL.RADIOLOGIST DIAGNOSTIC Work Phone: [facility] 03-17-2024 07:29-0400 Body weight 107.9 kg Rad [place] DIRECT CARE PROFESSIONAL.RADIOLOGIST DIAGNOSTIC Work Phone: [facility] 03-17-2024 07:29-0400 Diastolic blood pressure 90 mm[Hg] Rad [place] DIRECT CARE PROFESSIONAL.RADIOLOGIST DIAGNOSTIC Work Phone: [facility] 03-17-2024 07:29-0400 Heart rate 72 /min Rad [place] DIRECT CARE PROFESSIONAL.RADIOLOGIST DIAGNOSTIC Work Phone: [facility] 03-17-2024 07:29-0400 Respiratory rate 16 /min Rad [place] DIRECT CARE PROFESSIONAL.RADIOLOGIST DIAGNOSTIC Work Phone: [facility] 03-17-2024 07:29-0400 SaO2% (BldA) [Mass fraction] 98 % Rad [place] DIRECT CARE PROFESSIONAL.RADIOLOGIST DIAGNOSTIC Work Phone: [facility] 03-17-2024 07:29-0400 Systolic blood pressure 162 mm[Hg] Rad [place] DIRECT CARE PROFESSIONAL.RADIOLOGIST DIAGNOSTIC Work Phone: [facility] 01-31-2024 16:49-0400 Body height 172.[address] Beka Bowie Work Phone: [facility] 01-31-2024 16:49-0400 Body mass index (BMI) [Ratio] 35.1 kg/m2 Dr. Beka Bowie Work Phone: [facility] 01-31-2024 16:49-0400 Body temperature 98.1 [degF] Dr. Beka Bowie Work Phone: [facility] 01-31-2024 16:49-0400 Body weight 104.[address] Beka Bowie Work Phone: [facility] 01-31-2024 16:49-0400 Diastolic blood pressure 90 mm[Hg] Dr. Beka Bowie Work Phone: [facility] 01-31-2024 16:49-0400 Heart rate 91 /min Dr. Beka Bowie Work Phone: [facility] 01-31-2024 16:49-0400 Respiratory rate 20 /min Dr. Beka Bowie Work Phone: [facility] 01-31-2024 16:49-0400 SaO2% (BldA) [Mass fraction] 95 % Dr. Beka Bowie Work Phone: [facility] 01-31-2024 16:49-0400 Systolic blood pressure 134 mm[Hg] Dr. Beka Bowie Work Phone: [facility] 01-15-2024 08:57-0500 Body mass index (BMI) [Ratio] 35.4 kg/m2 Dr. Beka Bowie Work Phone: [facility] 01-15-2024 08:57-0500 Body weight 105.[address] Beka Bowie Work Phone: [facility] 01-15-2024 08:57-0500 Diastolic blood pressure 83 mm[Hg] Dr. Beka Bowie Work Phone: [facility] 01-15-2024 08:57-0500 Heart rate 80 /min Dr. Beka Bowie Work Phone: [facility] 01-15-2024 08:57-0500 Respiratory rate 18 /min Dr. Beka Bowie Work Phone: [facility] 01-15-2024 08:57-0500 SaO2% (BldA) [Mass fraction] 94 % Dr. Beka Bowie Work Phone: [facility] 01-15-2024 08:57-0500 Systolic blood pressure 134 mm[Hg] Dr. Beka Bowie Work Phone: [facility] 12-28-2023 11:13-0500 Body height 172.[address] Beka Bowie Work Phone: [facility] 12-28-2023 11:13-0500 Body mass index (BMI) [Ratio] 33.9 kg/m2 Dr. Beka Bowie Work Phone: [facility] 12-28-2023 11:13-0500 Body temperature 96.8 [degF] Dr. Beka Bowie Work Phone: [facility] 12-28-2023 11:13-0500 Body weight 101.[address] Beka Bowie Work Phone: [facility] 12-28-2023 11:13-0500 Diastolic blood pressure 90 mm[Hg] Dr. Beka Bowie Work Phone: [facility] 12-28-2023 11:13-0500 Heart rate 75 /min Dr. Beka Bowie Work Phone: [facility] 12-28-2023 11:13-0500 Respiratory rate 18 /min Dr. Beka Bowie Work Phone: [facility] 12-28-2023 11:13-0500 SaO2% (BldA) [Mass fraction] 95 % Dr. Beka Bowie Work Phone: [facility] 12-28-2023 11:13-0500 Systolic blood pressure 176 mm[Hg] Dr. Beka Bowie Work Phone: [facility] 12-26-2023 08:00-0500 Body temperature 98.5 [degF] Dr. Beka Bowie Work Phone: [facility] 12-26-2023 08:00-0500 Diastolic blood pressure 74 mm[Hg] Dr. Beka Bowie Work Phone: [facility] 12-26-2023 08:00-0500 Heart rate 80 /min Dr. Beka Bowie Work Phone: [facility] 12-26-2023 08:00-0500 Respiratory rate 14 /min Dr. Beka Bowie Work Phone: [facility] 12-26-2023 08:00-0500 SaO2% (BldA) [Mass fraction] 96 % Dr. Beka Bowie Work Phone: [facility] 12-26-2023 08:00-0500 Systolic blood pressure 181 mm[Hg] Dr. Beka Bowie Work Phone: [facility] 12-26-2023 07:35-0500 Inhaled oxygen flow rate 2 L/min Dr. Beka Bowie Work Phone: [facility] 12-24-2023 16:28-0500 Body height 172.[address] Beka Bowie Work Phone: [facility] 12-24-2023 16:28-0500 Body mass index (BMI) [Ratio] 34.4 kg/m2 Dr. Beka Bowie Work Phone: [facility] 12-24-2023 16:28-0500 Body weight 102.[address] Beka Bowie Work Phone: [facility] 12-24-2023 15:25-0500 Body temperature 96 [degF] Dr. Beka Bowie Work Phone: [facility] 12-24-2023 15:25-0500 Diastolic blood pressure 108 mm[Hg] Dr. Beka Bowie Work Phone: [facility] 12-24-2023 15:25-0500 Heart rate 100 /min Dr. Beka Bowie Work Phone: [facility] 12-24-2023 15:25-0500 Respiratory rate 20 /min Dr. Beka Bowie Work Phone: [facility] 12-24-2023 15:25-0500 SaO2% (BldA) [Mass fraction] 96 % Dr. Beka Bowie Work Phone: [facility] 12-24-2023 15:25-0500 Systolic blood pressure 212 mm[Hg] Dr. Beka Bowie Work Phone: [facility] 12-24-2023 15:09-0500 Body mass index (BMI) [Ratio] 35.5 kg/m2 Dr. Beka Bowie Work Phone: [facility] 12-24-2023 15:09-0500 Body weight 106.[address] Beka Bowie Work Phone: [facility] 12-24-2023 12:19-0500 Body height 172.[address] Beka Bowie Work Phone: [facility] 12-06-2023 15:15-0500 Body height 172.[address] Beka Bowie Work Phone: [facility] 12-06-2023 15:15-0500 Body mass index (BMI) [Ratio] 35.4 kg/m2 Dr. Beka Bowie Work Phone: [facility] 12-06-2023 15:15-0500 Body temperature 98.3 [degF] Dr. Beka Bowie Work Phone: [facility] 12-06-2023 15:15-0500 Body weight 105.[address] Beka Bowie Work Phone: [facility] 12-06-2023 15:15-0500 Diastolic blood pressure 102 mm[Hg] Dr. Beka Bowie Work Phone: [facility] 12-06-2023 15:15-0500 Heart rate 83 /min Dr. Beka Bowie Work Phone: [facility] 12-06-2023 15:15-0500 Respiratory rate 18 /min Dr. Beka Bowie Work Phone: [facility] 12-06-2023 15:15-0500 SaO2% (BldA) [Mass fraction] 97 % Dr. Beka Bowie Work Phone: [facility] 12-06-2023 15:15-0500 Systolic blood pressure 154 mm[Hg] Dr. Beka Bowie Work Phone: [facility] 11-21-2023 10:41-0500 Diastolic blood pressure 77 mm[Hg] [facility] 11-21-2023 10:41-0500 Heart rate 71 /min [facility] 11-21-2023 10:41-0500 Respiratory rate 18 /min [facility] 11-21-2023 10:41-0500 SaO2% (BldA) [Mass fraction] 97 % [facility] 11-21-2023 10:41-0500 Systolic blood pressure 133 mm[Hg] [facility] 11-21-2023 06:38-0500 Body height 172.72 cm [facility] 11-21-2023 06:38-0500 Body mass index (BMI) [Ratio] 35.2 kg/m2 [facility] 11-21-2023 06:38-0500 Body temperature 97 [degF] [facility] 11-21-2023 06:38-0500 Body weight 104.9 kg [facility] 06-26-2022 13:25-0400 Diastolic blood pressure 92 mm[Hg] Dr. Beka Bowie Work Phone: [facility] Work Phone: 06-26-2022 13:25-0400 Heart rate 75 /min Dr. Beka Bowie Work Phone: [facility] Work Phone: 06-26-2022 13:25-0400 Respiratory rate 16 /min Dr. Beka Bowie Work Phone: [facility] Work Phone: 06-26-2022 13:25-0400 SaO2% (BldA) [Mass fraction] 95 % Dr. Beka Bowie Work Phone: [facility] Work Phone: 06-26-2022 13:25-0400 Systolic blood pressure 159 mm[Hg] Dr. Beka Bowie Work Phone: [facility] Work Phone: 06-26-2022 12:00-0400 Body temperature 98.1 [degF] Dr. Beka Bowie Work Phone: [facility] Work Phone: 06-26-2022 09:12-0400 Body height 172.[address] Beka Bowie Work Phone: [facility] Work Phone: 06-26-2022 09:12-0400 Body weight 101.[address] Beka Bowie Work Phone: [facility] Work Phone: 06-26-2022 04:53-0400 Body mass index (BMI) [Ratio] 34 kg/m2 Dr. Beka Bowie Work Phone: [facility] Work Phone: 06-26-2022 04:16-0400 Diastolic blood pressure 120 mm[Hg] Dr. Beka Bowie Work Phone: [facility] Work Phone: 06-26-2022 04:16-0400 Heart rate 89 /min Dr. Beka Bowie Work Phone: [facility] Work Phone: 06-26-2022 04:16-0400 Systolic blood pressure 198 mm[Hg] Dr. Beka Bowie Work Phone: [facility] Work Phone: 06-26-2022 04:15-0400 Body temperature 98.7 [degF] Dr. Beka Bowie Work Phone: [facility] Work Phone: 06-26-2022 04:15-0400 Respiratory rate 19 /min Dr. Beka Bowie Work Phone: [facility] Work Phone: 06-26-2022 04:15-0400 SaO2% (BldA) [Mass fraction] 91 % Dr. Beka Bowie Work Phone: [facility] Work Phone: 06-26-2022 01:03-0400 Body height 172.[address] Beka Bowie Work Phone: [facility] Work Phone: 06-26-2022 01:03-0400 Body mass index (BMI) [Ratio] 34 kg/m2 Dr. Beka Bowie Work Phone: [facility] Work Phone: 06-26-2022 01:03-0400 Body weight 101.[address] Beka Bowie Work Phone: [facility] Work Phone: 06-08-2022 16:11-0400 Body height 172.[address] Beka Bowie Work Phone: [facility] Work Phone: 06-08-2022 16:11-0400 Body mass index (BMI) [Ratio] 32.1 kg/m2 Dr. Beka Bowie Work Phone: [facility] Work Phone: 06-08-2022 16:11-0400 Body temperature 97.1 [degF] Dr. Beka Bowie Work Phone: [facility] Work Phone: 06-08-2022 16:11-0400 Body weight 95.[address] Beka Bowie Work Phone: [facility] Work Phone: 06-08-2022 16:11-0400 Diastolic blood pressure 90 mm[Hg] Dr. Beka Bowie Work Phone: [facility] Work Phone: 06-08-2022 16:11-0400 Heart rate 82 /min Dr. Beka Bowie Work Phone: [facility] Work Phone: 06-08-2022 16:11-0400 Respiratory rate 15 /min Dr. Beka Bowie Work Phone: [facility] Work Phone: 06-08-2022 16:11-0400 SaO2% (BldA) [Mass fraction] 95 % Dr. Beka Bowie Work Phone: [facility] Work Phone: 06-08-2022 16:11-0400 Systolic blood pressure 140 mm[Hg] Dr. Beka Bowie Work Phone: [facility] Work Phone: 06-05-2022 11:27-0400 Body mass index (BMI) [Ratio] 33 kg/m2 Dr. Beka Bowie Work Phone: [facility] Work Phone: 06-05-2022 11:27-0400 Body weight 98.[address] Beka Bowie Work Phone: [facility] Work Phone: 06-05-2022 11:27-0400 Diastolic blood pressure 110 mm[Hg] Dr. Beka Bowie Work Phone: [facility] Work Phone: 06-05-2022 11:27-0400 Heart rate 80 /min Dr. Beka Bowie Work Phone: [facility] Work Phone: 06-05-2022 11:27-0400 Systolic blood pressure 160 mm[Hg] Dr. Beka Bowie Work Phone: [facility] Work Phone: 04-27-2022 14:15-0400 Diastolic blood pressure 91 mm[Hg] Dr. Beka Bowie Work Phone: [facility] Work Phone: 04-27-2022 14:15-0400 Heart rate 85 /min Dr. Beka Bowie Work Phone: [facility] Work Phone: 04-27-2022 14:15-0400 Respiratory rate 16 /min Dr. Beka Bowie Work Phone: [facility] Work Phone: 04-27-2022 14:15-0400 SaO2% (BldA) [Mass fraction] 94 % Dr. Beka Bowie Work Phone: [facility] Work Phone: 04-27-2022 14:15-0400 Systolic blood pressure 159 mm[Hg] Dr. Beka Bowie Work Phone: [facility] Work Phone: 04-27-2022 13:30-0400 Diastolic blood pressure 95 mm[Hg] Dr. Beka Bowie Work Phone: [facility] Work Phone: 04-27-2022 13:30-0400 Heart rate 81 /min Dr. Beka Bowie Work Phone: [facility] Work Phone: 04-27-2022 13:30-0400 Respiratory rate 16 /min Dr. Beka Bowie Work Phone: [facility] Work Phone: 04-27-2022 13:30-0400 SaO2% (BldA) [Mass fraction] 96 % Dr. Beka Bowie Work Phone: [facility] Work Phone: 04-27-2022 13:30-0400 Systolic blood pressure 167 mm[Hg] Dr. Beka Bowie Work Phone: [facility] Work Phone: 04-27-2022 09:45-0400 Body temperature 98 [degF] Dr. Beka Bowie Work Phone: [facility] Work Phone: 04-27-2022 09:42-0400 Body height 172.[address] Beka Bowie Work Phone: [facility] Work Phone: 04-27-2022 09:42-0400 Body mass index (BMI) [Ratio] 32.1 kg/m2 Dr. Beka Bowie Work Phone: [facility] Work Phone: 04-27-2022 09:42-0400 Body weight 95.[address] Beka Bowie Work Phone: [facility] Work Phone: 04-27-2022 09:03-0400 Diastolic blood pressure 104 mm[Hg] Dr. Beka Bowie Work Phone: [facility] Work Phone: 04-27-2022 09:03-0400 Systolic blood pressure 134 mm[Hg] Dr. Beka Bowie Work Phone: [facility] Work Phone: 04-27-2022 08:49-0400 Body temperature 97.9 [degF] Dr. Beka Bowie Work Phone: [facility] Work Phone: 04-27-2022 08:49-0400 Heart rate 68 /min Dr. Beka Bowie Work Phone: [facility] Work Phone: 04-27-2022 08:49-0400 Respiratory rate 16 /min Dr. Beka Bowie Work Phone: [facility] Work Phone: 04-27-2022 08:49-0400 SaO2% (BldA) [Mass fraction] 94 % Dr. Beka Bowie Work Phone: [facility] Work Phone: 04-27-2022 07:11-0400 Body height 172.[address] Beka Bowie Work Phone: [facility] Work Phone: 04-27-2022 07:11-0400 Body mass index (BMI) [Ratio] 32.8 kg/m2 Dr. Beka Bowie Work Phone: [facility] Work Phone: 04-27-2022 07:11-0400 Body weight 97.[address] Beka Bowie Work Phone: [facility] Work Phone: 03-30-2022 15:33-0400 Body mass index (BMI) [Ratio] 32.5 kg/m2 Dr. Beka Bowie Work Phone: [facility] Work Phone: 03-30-2022 15:33-0400 Body temperature 96.6 [degF] Dr. Beka Bowie Work Phone: [facility] Work Phone: 03-30-2022 15:33-0400 Body weight 97.[address] Beka Bowie Work Phone: [facility] Work Phone: 03-30-2022 15:33-0400 Diastolic blood pressure 84 mm[Hg] Dr. Beka Bowie Work Phone: [facility] Work Phone: 03-30-2022 15:33-0400 Heart rate 75 /min Dr. Beka Bowie Work Phone: [facility] Work Phone: 03-30-2022 15:33-0400 Respiratory rate 16 /min Dr. Beka Bowie Work Phone: [facility] Work Phone: 03-30-2022 15:33-0400 SaO2% (BldA) [Mass fraction] 95 % Dr. Beka Bowie Work Phone: [facility] Work Phone: 03-30-2022 15:33-0400 Systolic blood pressure 130 mm[Hg] Dr. Beka Bowie Work Phone: [facility] Work Phone: 03-30-2022 15:33-0400 Body mass index (BMI) [Ratio] 32.5 kg/m2 Dr. Beka Bowie Work Phone: [facility] Work Phone: 03-30-2022 15:33-0400 Body temperature 96.6 [degF] Dr. Beka Bowie Work Phone: [facility] Work Phone: 03-30-2022 15:33-0400 Body weight 97.[address] Beka Bowie Work Phone: [facility] Work Phone: 03-30-2022 15:33-0400 Diastolic blood pressure 84 mm[Hg] Dr. Beka Bowie Work Phone: [facility] Work Phone: 03-30-2022 15:33-0400 Heart rate 75 /min Dr. Beka Bowie Work Phone: [facility] Work Phone: 03-30-2022 15:33-0400 Respiratory rate 16 /min Dr. Beka Bowie Work Phone: [facility] Work Phone: 03-30-2022 15:33-0400 SaO2% (BldA) [Mass fraction] 95 % Dr. Beka Bowie Work Phone: [facility] Work Phone: 03-30-2022 15:33-0400 Systolic blood pressure 130 mm[Hg] Dr. Beka Bowie Work Phone: [facility] Work Phone: 02-15-2022 16:08-0400 Body mass index (BMI) [Ratio] 32.9 kg/m2 Dr. Beka Bowie Work Phone: [facility] Work Phone: 02-15-2022 16:08-0400 Body temperature 98.2 [degF] Dr. Beka Bowie Work Phone: [facility] Work Phone: 02-15-2022 16:08-0400 Body weight 98.[address] Beka Bowie Work Phone: [facility] Work Phone: 02-15-2022 16:08-0400 Diastolic blood pressure 82 mm[Hg] Dr. Beka Bowie Work Phone: [facility] Work Phone: 02-15-2022 16:08-0400 Heart rate 79 /min Dr. Beka Bowie Work Phone: [facility] Work Phone: 02-15-2022 16:08-0400 Respiratory rate 18 /min Dr. Beka Bowie Work Phone: [facility] Work Phone: 02-15-2022 16:08-0400 SaO2% (BldA) [Mass fraction] 96 % Dr. Beka Bowie Work Phone: [facility] Work Phone: 02-15-2022 16:08-0400 Systolic blood pressure 162 mm[Hg] Dr. Beka Bowie Work Phone: [facility] Work Phone: 01-13-2022 14:23-0500 Body mass index (BMI) [Ratio] 31.6 kg/m2 Dr. Beka Bowie Work Phone: [facility] Work Phone: 01-13-2022 14:18-0500 Body weight 94.[address] Beka Bowie Work Phone: [facility] Work Phone: 01-13-2022 14:18-0500 Diastolic blood pressure 90 mm[Hg] Dr. Beka Bowie Work Phone: [facility] Work Phone: 01-13-2022 14:18-0500 Heart rate 86 /min Dr. Beka Bowie Work Phone: [facility] Work Phone: 01-13-2022 14:18-0500 Respiratory rate 18 /min Dr. Beka Bowie Work Phone: [facility] Work Phone: 01-13-2022 14:18-0500 SaO2% (BldA) [Mass fraction] 95 % Dr. Beka Bowie Work Phone: [facility] Work Phone: 01-13-2022 14:18-0500 Systolic blood pressure 158 mm[Hg] Dr. Beka Bowie Work Phone: [facility] Work Phone: 07-17-2017 10:05-0400 BMI (Body Mass Index) 31.81 kg/m2 MD [facility] Work Phone: 07-17-2017 10:05-0400 BP Diastolic 100 mm[Hg] Eric Flores MD [facility] Work Phone: 07-17-2017 10:05-0400 BP Systolic 158 mm[Hg] Eric Flores MD [facility] Work Phone: 07-17-2017 10:05-0400 Height 172.72 cm Eric Flores MD [facility] Work Phone: 07-17-2017 10:05-0400 Pulse (Heart Rate) 72 /min Eric Flores MD [facility] Work Phone: 07-17-2017 10:05-0400 Respiratory Rate 20 /min Eric Flores MD [facility] Work Phone: 07-17-2017 10:05-0400 Weight 94.92 kg Eric Flores MD [facility] Work Phone: 04-27-2017 09:15-0400 BMI (Body Mass Index) 34.97 kg/m2 MD [facility] Work Phone: 04-27-2017 09:15-0400 BP Diastolic 104 mm[Hg] MD [facility] Work Phone: 04-27-2017 09:15-0400 BP Systolic 178 mm[Hg] Eric Flores MD [facility] Work Phone: 04-27-2017 09:15-0400 Height [...] Pulse (Heart Rate) 88 /min Harumi DeFinis [facility] Work Phone: 02-06-2017 14:17-0400 Pulse Oximetry 98 % Harumi DeFinis [facility] Work Phone: 02-06-2017 14:17-0400 Respiratory Rate 24 /min Harumi DeFinis [facility] Work Phone: 02-06-2017 14:17-0400 Weight 102.6 kg Eric Flores MD [facility] Work Phone: 12-27-2016 09:07-0500 BSA (Body Surface Area) 2.12 m2 Harumi DeFinallan [facility] Work Phone: Encounters Encounter Date Encounter Type Care Provider Facility Start: 02-19-2025 ambulatory Beka Bowie Bayi ty:[facility] Start: 02-11-2025 ambulatory Eric Flores Facility:[facility] Start: 02-11-2025 Non-patient / Non-visit [facility] Mtz [facility] Start: 02-11-2025 ambulatory Mitchell Deras Facili ty:[facility] Start: 02-11-2025 Non-patient / Non-visit Dr. Brennon shen [facility] Work Phone: Start: 02-11-2025 ambulatory Fed[place] Facility:[facility] Start: 02-11-2025 End: 02-11-2025 Evaluation and management of inpatient Dr. Mitchell Deras DO -Intensive Care Unit Work Phone: Start: 10-12-2024 End: 10-12-2024 ambulatory [place] Riddletika Facility:[facility] Start: 10-11-2024 ambulatory Mitchell Diazi ty:[facility] Start: 10-11-2024 End: 10-13-2024 Evaluation and management of inpatient Mitchell Deras Facility:[facility] Start: 09-25-2024 End: 09-25-2024 Emergency department patient visit [facility] Venkateshtika Facility:[facility] Start: 04-07-2024 ambulatory Beka Venkateshtika Bayi ty:[facility] Start: 03-17-2024 End: 03-17-2024 ambulatory Facility:[facility] Start: 03-17-2024 End: 03-17-2024 Patient encounter procedure Rad Darelljosé DIRECT CARE PROFESSIONAL.RADIOLOGIST DIAGNOSTIC Work Phone: [facility] Comment on above: Bacterial conjunctiv itis (Primary Dx) Start: 02-08-2024 End: 02-08-[address] Beka Bowie Work Phone: [facility] Work Phone: Start: 02-08-2024 End: 02-08-[address] Beka Bowie Work Phone: [facility]-Laboratory Work Phone: Start: 01-31-2024 End: 01-31-[address] Beka Bowie Work Phone: [facility] Work Phone: Start: 01-15-2024 End: 01-15-[address] Beka Bowie Work Phone: [facility] Work Phone: Start: 12-31-2023 End: 12-31-[address] Beka Bowie Work Phone: [facility] Work Phone: Start: 12-31-2023 End: 12-31-[address] Beka Bowie Work Phone: [facility]-Laboratory Work Phone: Start: 12-28-2023 End: 12-28-[address] Beka Bowie Work Phone: [facility] Work Phone: Start: 12-26-2023 Non-patient / Non-visit Dr. Mukul Bowie Work Phone: [facility] Start: 12-25-2023 Non-patient / Non-visit Dr. Mukul Bowie Work Phone: [facility] Work Phone: Start: 12-25-2023 Non-patient / Non-visit Dr. Mukul Bowie Work Phone: [facility] Start: 12-24-2023 End: 12-26-2023 Evaluation and management of inpatient Dr. Beka Bowie Work Phone: [facility]-Progressive Care Unit Work Phone: Start: 12-24-2023 Non-patient / Non-visit Dr. Mukul Bowie Work Phone: [facility] Work Phone: Start: 12-12-2023 Non-patient / Non-visit Dr. Mukul Bowie Work Phone: [facility] Work Phone: Start: 12-11-2023 Non-patient / Non-visit Dr. Mukul Bowie Work Phone: [facility] Start: 12-11-2023 End: 12-11-[address] Beka Bowie Work Phone: [facility] Work Phone: Start: 12-11-2023 End: 12-11-[address] [facility] Start: 12-06-2023 End: 12-06-[address] Beka Bowie Work Phone: [facility] Work Phone: Start: 11-21-2023 End: 11-21-2023 [facility] Start: 06-26-2022 Non-patient / Non-visit Dr. Mukul Bowie Work Phone: [facility] Start: 06-26-2022 Non-patient / Non-visit Dr. Mukul Bowie Work Phone: [facility] Start: 06-26-2022 End: 06-26-2022 Evaluation and management of inpatient Dr. Beka Bowie Work Phone: [facility]-Intensive Care Unit Start: 06-15-2022 End: 06-15-[address] Beka Bowie Work Phone: [facility]-Radiology, [facility] Start: 06-08-2022 End: 06-08-[address] Beka Bowie Work Phone: [facility] Start: 06-05-2022 End: 06-05-[address] Beka Bowie Work Phone: [facility] Start: 04-27-2022 Non-patient / Non-visit Dr. Mukul Bowie Work Phone: [facility] Start: 04-27-2022 End: 04-27-2022 Evaluation and management of inpatient [facility]ek[facility] Start: 04-27-2022 Evaluation and manag ement of inpatient Dr[facility] Bek[facility] Bowie [facility] Start: 03-30-2022 End: 03-30-[address] Beka Bowie Work Phone: [facility] Start: 02-15-2022 End: 02-15-[address] Beka Bowie Work Phone: [facility] Start: 01-18-2022 End: 01-18-[address] Beka Bowie Work Phone: [facility]-Laboratory, Specimen Start: 01-17-2022 Non-patient / Non-visit Dr. Mukul Bowie Work Phone: [facility] Start: 01-17-2022 End: 01-17-[address] Beka Bowie Work Phone: [facility]-Cardiovascular Services Start: 01-13-2022 End: 01-13-[address] Beka Bowie Work Phone: [facility] Procedures Date Procedure Procedure Detail [...] 3.0 x 15 mm Resolute Integrity 02/21/19; PCI-WNA-Mid LCx w/ 2.25 x 12 mm Synergy MR Stent and 3.0 x 16 mm Synergy MR Stent 03/18/2020; [id number] w/ 3.0 x 12 mm Synergy Stent and WAN-Prox RCA w/ 3.5 x 20 MM Synergy Stent 11/22/2020; WAN mid LAD w/3.0 X 24 MM Synergy MR Stent 11/18/2021, WAN Prox LAD using [place] Dallam 3.0x12 mm and WAN Prox OM1 using Flaco Dallam 2.5x18 mm 12/25/23 Start: 12-24-2023 Plain chest [...] Activity Detail Author Start: 02-11-2025 Patient discharge [facility] Start: 02-11-2025 Vitamin D, 1,25-dihydroxy measurement [facility] Start: 02-11-2025 Following clinical pathway protocol [facility] Start: 02-11-2025 Aspiration precautions [facility] Start: 02-11-2025 Cardiac monitoring [facility] Start: 02-11-2025 Catheterization of vein [facility] Start: 02-11-2025 Consultation [facility] Start: 02-11-2025 Continuous pulse oximetry [facility] Start: 02-11-2025 Elevation of head of bed [facility] Start: 02-11-2025 Exercises [facility] Start: 02-11-2025 Notification of physician [facility] Start: 02-11-2025 Oxygen therapy [facility] Start: 02-11-2025 Patient referral to dietitian [facility] Start: 02-11-2025 Referral to occupational therapist [facility] Start: 02-11-2025 Referral to service [facility] Start: 02-11-2025 Speech therapy assessment [facility] Start: 02-11-2025 Telemedicine consultation with patient [facility] Start: 02-11-2025 Tobacco use cessation education [facility] Start: 02-11-2025 End: 02-11-2025 [facility] Start: 02-11-2025 Vital signs measurements [facility] Start: 02-11-2025 MRI of brain with contrast Brain WITH Contrast [facility] Start: 02-11-2025 Thyroid stimulating hormone measurement [facility] Start: 02-11-2025 Vitamin D, 1,25-dihydroxy measurement [facility] Start: 02-11-2025 Admission procedure [facility] Start: 02-11-2025 Inhalation therapy procedure [facility] Start: 02-10-2025 [facility] Start: 07-20-2024 Influenza vaccination Influenza Vaccine (Season Ended) [facility] Start: 12-28-2023 Electrocardiographic procedure [facility] Start: 12-27-2023 Electrocardiographic procedure [facility] Start: 12-26-2023 Electrocardiographic procedure [facility] Start: 12-26-2023 Patient discharge [facility] Start: 12-26-2023 [facility] Start: 12-25-2023 Care planning and problem solving actions [facility] Start: 12-25-2023 Care planning and problem solving actions [facility] Start: 12-25-2023 Ambulation without limitation [facility] Start: 12-25-2023 Pulse taking [facility] Start: 12-25-2023 Cardiac monitoring [facility] Start: 12-25-2023 Cardiac rehabilitation - phase 1 [facility] Start: 12-25-2023 Cardiac rehabilitation - phase 2 [facility] Start: 12-25-2023 Notification of physician [facility] Start: 12-25-2023 Oxygen therapy [facility] Start: 12-25-2023 Patient discharge [facility] Start: 12-25-2023 Systemic arterial pressure monitoring [facility] Start: 12-25-2023 Taking patient vital signs [facility] Start: 12-25-2023 Vascular disease risk assessment [facility] Start: 12-25-2023 Vital signs measurements [facility] Start: 12-25-2023 End: 12-25-2023 [facility] Start: 12-25-2023 Patient referral [facility] Work Phone: Start: 12-25-2023 Continuous pulse oximetry [facility] Start: 12-25-2023 Preoperative care [facility] Start: 12-25-2023 Catheterization of vein [facility] Start: 12-25-2023 Medication not administered [facility] Start: 12-25-2023 Notification of physician [facility] Start: 12-25-2023 [facility] Start: 12-25-2023 Thyroid stimulating hormone measurement [facility] Start: 12-25-2023 [facility] Start: 12-24-2023 Following clinical pathway protocol [facility] Start: 12-24-2023 Care planning and problem solving actions [facility] Start: 12-24-2023 Assessment of risk of venous thromboembolism [facility] Start: 12-24-2023 Care regimes management [facility] Start: 12-24-2023 Electrocardiographic procedure [facility] Start: 12-24-2023 Inhalation therapy procedure [facility] Start: 12-24-2023 Insertion of catheter into peripheral vein [facility] Start: 12-24-2023 Measuring intake and output [facility] Start: 12-24-2023 Notification of physician [facility] Start: 12-24-2023 Oxygen therapy [facility] Start: 12-24-2023 Providing care according to standard [facility] Start: 12-24-2023 Provision of activity privileges [facility] Start: 12-24-2023 Referral to pressroom foreman [facility] Start: 12-24-2023 Tobacco use cessation education [facility] Start: 12-24-2023 [facility] Start: 12-24-2023 Verification routine [facility] Start: 12-24-2023 Admission procedure [facility] Start: 11-21-2023 [facility] Start: 11-21-2023 End: 11-21-2023 [facility] Start: 11-19-2023 Behavioral Health Screening Behavioral Health Screening [facility] Start: 07-20-2023 Covid-19 Vaccine () Covid-19 Vaccine () [facility] Start: 06-26-2022 Patient discharge [facility] Work Phone: Start: 06-26-2022 Partial thromboplastin time, activated [facility] Work Phone: Start: 06-26-2022 [facility] Work Phone: Start: 06-26-2022 Following clinical pathway protocol [facility] Work Phone: Start: 06-26-2022 Assessment of risk of venous thromboembolism [facility] Work Phone: Start: 06-26-2022 Care regimes management [facility] Work Phone: Start: 06-26-2022 Catheterization of vein [facility] Work Phone: Start: 06-26-2022 Elevation of head of bed [facility] Work Phone: Start: 06-26-2022 Inhalation therapy procedure [facility] Work Phone: Start: 06-26-2022 Insertion of catheter into peripheral vein [facility] Work Phone: Start: 06-26-2022 Measuring intake and output [facility] Work Phone: Start: 06-26-2022 Providing care according to standard [facility] Work Phone: Start: 06-26-2022 Vital signs measurements [facility] Work Phone: Start: 06-26-2022 [facility] Work Phone: Start: 06-26-2022 Admission procedure [facility] Work Phone: Start: 04-27-2022 Lipid panel Lipid Screening [facility] Start: 04-27-2022 End: 04-27-2022 Patient discharge [facility] Work Phone: Start: 04-27-2022 Cardiac monitoring [facility] Work Phone: Start: 04-27-2022 Cardiac rehabilitation - phase 1 [facility] Work Phone: Start: 04-27-2022 Notification of physician [facility] Work Phone: Start: 04-27-2022 Oxygen therapy [facility] Work Phone: Start: 04-27-2022 Systemic arterial pressure monitoring [facility] Work Phone: Start: 04-27-2022 Taking patient vital signs [facility] Work Phone: Start: 04-27-2022 Vascular disease risk assessment [facility] Work Phone: Start: 04-27-2022 Vital signs measurements [facility] Work Phone: Start: 04-27-2022 [facility] Work Phone: Start: 04-27-2022 Assessment of risk of venous thromboembolism [facility] Work Phone: Start: 04-27-2022 Insertion of catheter into peripheral vein [facility] Work Phone: Start: 04-27-2022 Measuring intake and output [facility] Work Phone: Start: 04-27-2022 Providing care according to standard [facility] Work Phone: Start: 04-27-2022 Provision of activity privileges [facility] Work Phone: Start: 04-27-2022 Tobacco use cessation education [facility] Work Phone: Start: 04-27-2022 [facility] Work Phone: Start: 04-27-2022 End: 04-27-2022 Referral to pressroom foreman [facility] Work Phone: Start: 04-27-2022 Admission procedure [facility] Work Phone: Start: 04-27-2022 Following clinical pathway protocol [facility] Work Phone: Start: 2021 Shingrix Vaccine (1 of 2) Shingrix Vaccine (1 of 2) [facility] Start: 11-09-2017 End: 11-09-2017 Appointment [address]oint[address] [facility] Work Phone: Start: 10-29-2017 End: 05-03-2017 *Hepatic Function Panel *Hepatic Function Panel [facility] Work Phone: Start: 10-29-2017 End: 05-03-2017 Lipid panel [AGGREGATE] *Lipid Profile CC PCP [facility] Work Phone: Start: 07-17-2017 End: 07-17-2017 Appointment Appointment [facility] Phone: Start: 07-13-2017 End: 07-13-2017 Appointment Appointment [facility] Work Phone: Start: 04-27-2017 End: 04-27-2017 Appointment Appointment [facility] Work Phone: Start: 04-27-2017 End: 04-27-2017 *BMP *BMP [facility] Work Phone: Start: 04-27-2017 End: 04-27-2017 *Hepatic Function Panel *Hepatic Function Panel [facility] Phone: Start: 04-27-2017 End: 04-27-2017 Follow Up Appt 6 months Follow Up Appt 6 months [facility] Work Phone: Start: 04-27-2017 End: 04-27-2017 Lipid panel [AGGREGATE] *Lipid Profile CC PCP [facility] Work Phone: Start: 04-27-2017 End: 04-27-2017 MMM MMM [facility] Work Phone: Start: 02-06-2017 End: 02-06-2017 Electrocardiogram, complete EKG (In office) [facility] Work Phone: Start: 02-06-2017 End: 02-06-2017 Follow Up Appt 3 months Follow Up Appt 3 months [facility] Work Phone: Start: 02-06-2017 End: 02-06-2017 MMM MMM [facility] Work Phone: Start: 12-27-2016 End: 12-27-2016 *Hepatic Function Panel *Hepatic Function Panel [facility] Work Phone: Start: 12-27-2016 End: 12-27-2016 Follow Up Appt 4 months Follow Up Appt 4 months [facility] Work Phone: Start: 12-27-2016 End: 12-27-2016 Lipid 1996 panel *Lipid Profile CC PCP [facility] Work Phone: Start: 12-27-2016 End: 12-27-2016 MMM MMM [facility] Work Phone: Start: 2016 Diabetes Screening Diabetes Screening [facility] Start: 2016 Screening for malignant neoplasm of colon [facility] Start: 1990 Hepatitis B Vaccine (1 of 3 - 19+ 3-dose series) Hepatitis B Vaccine (1 of 3 - 19+ 3-dose series) [facility] Start: 1990 Urine microalbumin profile DTaP,Tdap,Td Vaccine (1 - Tdap) [facility] Start: 1989 Annual PCP Team Chronic Disease Visit Annual PCP Team Chronic Disease Visit [facility] Start: 1989 BP Controlled (<130/80) BP Controlled (<130/80) [facility] Start: 1989 Hepatitis C screening Hepatitis C Screening [facility] Start: 1989 HIV screening HIV Screening [facility] Start: 1977 Pneumococcal vaccination Pneumococcal Vaccine (1 of 2 - PCV) [facility] Alanine aminotransfe rase [Enzymatic activity/volume] in Serum or Plasma [facility] Albumin [Mass/volume ] in Serum or Plasma [facility] Alkaline phosphatase [Enzymatic activity/volume] in Serum or Plasma [facility] Amphetamine [Mass/vo lume] in Urine [facility] Amphetamines [Presen ce] in Urine by Screen method >1000 ng/mL [facility] Anion gap measurement [facility] Aspartate aminotrans ferase [Enzymatic activity/volume] in Serum or Plasma [facility] Benzodiazepine measu rement, urine [facility] Benzodiazepine measu rement, urine [facility] Bilirubin, total measurement [facility] BUN/Creatinine ratio [facility] Calcium [Mass/volume ] in Serum or Plasma [facility] Carbon dioxide, tota l [Moles/volume] in Serum or Plasma [facility] Cardiac event recording [facility] Chloride [Moles/volu me] in Serum or Plasma [facility] Cholesterol [Mass/vo lume] in Serum or Plasma [facility] Cholesterol [Mass/vo lume] in Serum or Plasma [facility] Cholesterol in HDL [Mass/volume] in Serum or Plasma [facility] Cholesterol in HDL [Mass/volume] in Serum or Plasma [facility] Cholesterol in LDL [Mass/volume] in Serum or Plasma [facility] Cobalamin (Vitamin B 12) [Mass/volume] in Serum or Plasma [facility] Cocaine measurement, urine [facility] Cocaine measurement, urine [facility] Creatinine [Moles/vo lume] in Serum or Plasma [facility] Erythrocyte mean cor puscular volume determination [facility] Ethanol [Mass/volume ] in Serum or Plasma [facility] fentaNYL [Presence] in Urine by Screen method [facility] Folate [Moles/volume ] in Serum or Plasma [facility] Glucose [Mass/volume ] in Serum or Plasma [facility] Hematocrit [Volume F raction] of Blood [facility] Hemoglobin [Mass/vol ume] in Blood [facility] Hemoglobin A1c/Hemoglobin.total in Blood [facility] Hemoglobin A1c/Hemoglobin.total in Blood [facility] Leukocytes [#/volume] in Blood [facility] Low density lipoprot ein cholesterol measurement [facility] Magnesium [Mass/volu me] in Serum or Plasma [facility] Mean corpuscular hem oglobin concentration determination [facility] Mean corpuscular hem oglobin determination [facility] Measurement of 3,4-methylenedioxymethamphetam ine in urine [facility] Measurement of renal function [facility] Methadone measurement, urine [facility] Methadone measurement, urine [facility] Neutrophil count [facility] Neutrophil percent differential count [facility] Partial thromboplast in time, activated [facility] Work Phone: Patient Education [facility] Work Phone: Patient referral [facility] Work Phone: pH of Urine [facility] Phencyclidine [Prese nce] in Urine [facility] Phencyclidine [Prese nce] in Urine [facility] Platelets [#/volume] in Blood [facility] Potassium [Moles/vol ume] in Serum or Plasma [facility] Red blood cell count [facility] Red cell distributio n width determination [facility] Sodium [Moles/volume ] in Serum or Plasma [facility] Total cholesterol:HD L ratio measurement [facility] Total protein measurement [facility] Triglycerides measurement [facility] Triglycerides measurement [facility] Urea nitrogen [Mass/ volume] in Serum or Plasma [facility] Urine barbiturate measurement [facility] Urine cannabinoid measurement [facility] Urine cannabinoid measurement [facility] Urine opiate measurement [facility] Urine opiate measurement [facility] Vitamin D, 25-hydrox y measurement [facility] VLDL cholesterol measurement [facility] VLDL cholesterol measurement [facility] Payers Date Payer Category Payer Self-pay [id number] 2019 Unknown [id number] 2019 Unknown MMO MMO [employer] PPO [id number] 2019-Present [phone] [address] [place] [address] PPO [id number] Medicaid MEDICAID [id number] Private Health Insurance [facility] [id number] Unknown [id number] 62 Unknown [id number] 62 Unknown [id number] 62 Unknown [id number] 62 Unknown [id number] [id number] 62 Unknown [id number] [id number] 62 Unknown [id number] [id number] 62 Unknown [id number] [id number] 62 Unknown [id number] [id number] 62 Unknown [id number] [id number] 62 Unknown [id number] [id number] 62 Unknown [id number] [id number] 62 Unknown [id number] [id number] 62 Unknown [id number] 62 Unknown [id number] 62 Social History Date Type Detail Facility Start: 04-27-2022 End: 01-31-2024 Tobacco smoking status NHIS Unknown if ever smoked [facility] Start: 12-31-2020 Rare [facility] Start: 12-31-2020 None [facility] Start: 01-21-2021 Spouse/ Signif icant Other [facility] Start: 01-21-2021 Cigarettes [facility] Start: 1970 Sex Assigned At Male [facility] Start: 03-17-2024 End: 02-11-2025 Tobacco smoking status NHIS Smokes tobacco daily [facility] Start: 03-17-2024 Tobacco use and exposure Smokeless tobacco non-user [facility] Start: 03-17-2024 Alcohol intake Not Asked [facility] Start: 10-27-2020 End: 03-17-2024 History of Social function [facility] Start: 10-27-2020 End: 03-17-2024 Tobacco use panel [facility] National Score (1-100), lower number is lower risk Not on file [facility] Start: 1970 Sex Assigned At Not on file [facility] Start: 02-11-2025 End: 02-11-2025 Sex Male (finding) [facility] Medical Equipment Procedure Code Equipment Code Equipment Origin al Text Equipment Identifier Dates ([id number]) Drug-eluting coronary artery stent, bioabsorbable-polyme r-coated ()[id number] FDA Start: 11-18-2021 Pen Needle, Diab etic (Bd Ultra-Fine Tomasa Pen Needle) 32 gauge x 5/32 needle Start: 05-27-2021 Drug-eluting coronary artery stent, mej-eukxgueoztpzo-bj lymer-coated ()[id number] FDA Start: 12-25-2023 Drug-eluting coronary artery stent, tid-oswybqiamxuxx-na lymer-coated ()[id number] FDA Start: 12-25-2023 Goals Date Patient Goal Desired Activity /State Functional Status Date Assessment Result Facility 02-11-2025 Functional status Chair [facility] Work Phone: 12-26-2023 Functional status [facility] Work Phone: 06-26-2022 Functional status Chair [facility] Work Phone: 04-27-2022 Functional status Ambulates [facility] Work Phone: Mental Status Date Assessment Result Facility 02-11-2025 Cognitive function Voice/Name [facility] Work Phone: 02-10-2025 Cognitive function Appropriate;Cooperativ e [facility] Work Phone: 12-26-2023 Cognitive function Voice/Name [facility] Work Phone: 12-24-2023 [facility] Work Phone: 11-21-2023 Cognitive function Voice/Name [facility] Work Phone: 06-26-2022 Cognitive function Voice/Name [facility] Work Phone: 06-26-2022 Cognitive function Voice/Name [facility] Work Phone: 04-27-2022 Cognitive function Voice/Name [facility] Work Phone: 04-27-2022 Cognitive function Voice/Name [facility] Work Phone: Clinical Notes 11-21-2023 to 02-11-2025 Note Date & Type Note Facility 02-11-2025 Discharge summary [facility] 02-11-2025 Note [facility] Medical Records Department [address] [place] [address] Discharge Summary 02/11/25 1421 MR#: [id number] Acct: [id number] Name: LATONYA ELDER Rep #: [id number] : 1970 54 From: Brennon Juarez DO PCP: Dr. Beka Bowie MD Status:ADM IN Location: ICU [id number] Providers Date of Admission: 02/11/25 Primary Care [...] note (formal note not yet available in [facility]) who advised to give ASA and [...] seen the patient on 10/12 for a INDUSTRIAL AUTOMATION SPECIALIST for coughing fit then led to a [...] mg chewable tablet 81 mg PO DAILY [facility] 04/27/22 loratadine 10 mg tablet [...] 25 mg tablet 25 mg PO BIDCM [facility] #180 tabs 10/27/24 clonidine HCl [...] with slurred speec (more content not included)... [facility] 02-11-2025 Progress note [facility] 02-11-2025 Progress note Note Date/Time February 11, 2025 2:21pm [facility] Medical Records Department [address] [place] [address] Progress Note - Hospitalist 02/11/25 0656 MR#: [id number] Acct: [id number] Name: LATONYA ELDER Rep #:[id number] : 1970 54 From: Brennon Juarez DO [...] % (Auto) 61.8, Lymph % (Auto) 25.5, [place] % (Auto) 9.2, Eos % (Auto) 2.4, [...] are new since prior examination. Reading Location: [id number] CT 02/10/25 18:31 IMPRESSION: 1.9 by [...] 8:00 pm with readback verification. Reading Location: [facility] Head/Neck CTA 02/10/25 18:31 IMPRESSION: 1. Large [...] at 8:50 pm on 02/10/25. Reading Location: [facility] Physical Exam Const alert and no apparent [...] note (formal note not yet available in [facility]) who advised to give ASA and [...] presentation of CVA, can resume home medications: idxxyvpymz15, carvedilol 25 BID, clonidine 0.1 BID, furosemide 60 daily, lisinopril 20 BID, isosorbide 60 BID Add PRN hydralazine Continue previous home medications. I had seen the patient on 10/12 for a INDUST[employer] AUTOMATION SPECIALIST for coughing fit then led to a [...] Cosigner Signature (if applicable): CC: ~ Signed [facility] Work Phone: 1(937) 312-268103-26-2025 History and physical note Author Mitchell Lucero [facility] Note Date/Time February 11, 2025 6:4 2am [facility] Medical Records Department [address] [place] [address] H&P Exam - Hospitalist 02/10/25 2311 MR#: [id number] Acct: [id number] Name: LATONYA ELDER Rep #:[id number] : 1970 54 From: Mitchell Marr DO [...] troponin and Respiratory Insufficiency who presents to [facility] ER complaining of who presents to [facility] ER complaining of slurred speech and brain fog since Saturday, February 08, 2025. Mr. Elder and his significant other reported that his symptoms have been [id number] for the past several days and since [...] is expected to extend beyond 2 midnights. [facility] Medical History History of DVT (deep [...] elevation myocardial infarction (NSTEMI) (11/22/20) Atherosclerosis of [place] coronary artery of [place] heart without angina pectoris Non-ST elevation WA (NSTEMI) Home Medications ?Medication ?Instructions ?Recorded ?Last [...] % (Auto) 61.8, Lymph % (Auto) 25.5, [place] % (Auto) 9.2, Eos % (Auto) 2.4, [...] are new since prior examination. Reading Location: [facility] [place] Brain CT 02/10/25 18:31 IMPRESSION: 1.9 by [...] 8:00 pm with readback verification. Reading Location: [facility] [place] Head/Neck CTA 02/10/25 18:31 IMPRESSION: 1. Large [...] at 8:50 pm on 02/10/25. Reading Location: [facility] Assessment & Plan Assessment/Plan (1) Abnormal computed [...] definitive treatment of this issue given his mzfejz-elr-fljqyb slurred speech, brain fog and headache. If [...] 75 minutes. Charges/Coding Visit Charges Inpatient E&M: 33241 Init Hosp L3 02/11/25 0642 <Electronically signed by Mitchell Deras DO> Cosigner Signature (if applicable): CC: Dr. Mitchell Deras DO; Dr. Beka Bowie MD~ Signed [facility] Work Phone: 1(902) 946-197403-26-2025 History and physical note [facility] Medical Records Department [address] [place] [address] H&P Exam - Hospitalist 02/10/25 2311 MR#: [id number] Acct: [id number] Name: LATONYA ELDER Rep #:[id number] : 1970 54 From: Mitchell Marr DO [...] troponin and Respiratory Insufficiency who presents to [facility] ER complaining of who presents to [facility] ER complaining of slurred speech and brain fog since Saturday, February 08, 2025. Mr. Elder and his significant other reported that his symptoms have been lpetez-ylc-tvhkgq for the past several days and since [...] is expected to extend beyond 2 midnights. [facility] Medical History History of DVT (deep [...] elevation myocardial infarction (NSTEMI) (11/22/20) Atherosclerosis of [place] coronary artery of [place] heart without angina pectoris Non-ST elevation WA (NSTEMI) Home Medications ?Medication ?Instructions ?Recorded ?Last [...] % (Auto) 61.8, Lymph % (Auto) 25.5, [place] % (Auto) 9.2, Eos % (Auto) 2.4, [...] are new since prior examination. Reading Location: [facility] [place] Brain CT 02/10/25 18:31 IMPRESSION: 1.9 by [...] 8:00 pm with readback verification. Reading Location: [facility] [place] Head/Neck CTA 02/10/25 18:31 IMPRESSION: 1. Large [...] at 8:50 pm on 02/10/25. Reading Location: [facility] Assessment & Plan Assessment/Plan (1) Abnormal computed [...] definitive treatment of this issue given his xbinkh-pvn-dhwmlf slurred speech, brain fog and headache. If [...] 75 minutes. Charges/Coding Visit Charges Inpatient E&M: 97277 Init Hosp L3 02/11/25 0642 Cosigner Signature (if applicable): CC: Dr. Mitchell Deras DO; Dr. Beka Bowie MD~ Signed [facility]03-26-2025 Evaluation note* Diagnosis Onset Date Resolution Status [...] 12:04am COPD exacerbation chronic January 182024 12:04am [facility] Work Phone: 1(398) 159-807003-26-2025 Discharge summary Author Jasbir [facility] Note Date/Time February 10, 2025 11: 30pm [facility] Medical Records Department [address] [place] [address] Emergency Department Summary 02/10/25 MR#: [id number] Acct: [id number] Name: LATONYA ELDER Rep #:[id number] : 1970 54 From: Jasbir Curry DO [...] his inhalers and other medications as prescribed [facility] Medical History History of DVT (deep vein [...] elevation myocardial infarction (NSTEMI) (11/22/20) Atherosclerosis of [place] coronary artery of [place] heart without angina pectoris Non-ST elevation WA (NSTEMI) Home Medications ?Medication ?Instructions ?Recorded ?Last [...] Patient following commands that he was at [facility] year [id number]. Patient completed finger-nose testing bilaterally for any [...] % (Auto) 61.8 Lymph % (Auto) 25.5 [place] % (Auto) 9.2 Eos % (Auto) 2.4 [...] (Auto) Neut % (Auto) Lymph % (Auto) [place] % (Auto) Eos % (Auto) Baso % [...] are new since prior examination. Reading Location: [facility] [place] Brain CT 02/10/25 18:31 IMPRESSION: 1.9 by [...] 8:00 pm with readback verification. Reading Location: [facility] [place] Head/Neck CTA 02/10/25 18:31 IMPRESSION: 1. Large [...] at 8:50 pm on 02/10/25. Reading Location: [facility] Discharge Plan Triage Chief Complaint: Chest Pain [...] MD [Primary Care Provider] - Print Language: Ukrainian Disposition Disposition: Acute Care Hospital [facility] What to do if you have Problems For any increased pain, shortness of breath, bleeding, nausea or vomiting, chestpain, or any unexpected problems, contact your Primary Care Provider. Call [facility] ([phone]) or report to the closest Emergency Room. Call 911 if necessary. 02/10/250 <Electronically signed by Jasbir Curry DO> Cosigner Signature (if applicable): CC: Dr. Beka Bowie MD ~ Signed [facility] Work Phone: 1(438) 328-976403-25-2025 Discharge summary [facility] Medical Records Department [address] [place] [address] Emergency Department Summary 02/10/25 MR#: [id number] Acct: [id number] Name: LATONYA ELDER Rep #:[id number] : 1970 54 From: Jasbir Curry DO [...] his inhalers and other medications as prescribed [facility] Medical History History of DVT (deep vein [...] elevation myocardial infarction (NSTEMI) (11/22/20) Atherosclerosis of [place] coronary artery of [place] heart without angina pectoris Non-ST elevation WA (NSTEMI) Home Medications ?Medication ?Instructions ?Recorded ?Last [...] Patient following commands that he was at [facility] year [id number]. Patient completed finger-nose testing bilaterally for any [...] % (Auto) 61.8 Lymph % (Auto) 25.5 [place] % (Auto) 9.2 Eos % (Auto) 2.4 [...] (Auto) Neut % (Auto) Lymph % (Auto) [place] % (Auto) Eos % (Auto) Baso % [...] are new since prior examination. Reading Location: [facility] [place] Brain CT 02/10/25 18:31 IMPRESSION: 1.9 by [...] 8:00 pm with readback verification. Reading Location: [facility] [place] Head/Neck CTA 02/10/25 18:31 IMPRESSION: 1. Large [...] at 8:50 pm on 02/10/25. Reading Location: [facility] Discharge Plan Triage Chief Complaint: Chest Pain [...] MD [Primary Care Provider] - Print Language: Ukrainian Disposition Disposition: Acute Care Hospital [facility] What to do if you have Problems For any increased pain, shortness of breath, bleeding, nausea or vomiting, chestpain, or any unexpected problems, contact your Primary Care Provider. Call [facility] ([phone]) or report tothe closest Emergency Room. Call 911 if necessary. 02/10/25 2330 Cosigner Signature (if applicable): CC: Dr. Beka Bowie MD ~ Signed [facility]03-25-2025 Radiology Diagnostic study note [facility] Imaging Services [address] [place] [address] STROKE CTA Head AND Neck W/Con MR#: [id number] Acct: [id number] Name: LATONYA ELDER Rep #: [id number] : 1970 M 54 From: Rajani Thompson MD PCP: Dr. Beka Bowie MD Status: R EG ER Study:STROKE CTA Head AND Neck W/Con Date of Exam: 02/10/25 Exam# [id number] Ordering Dr: Nancy Curry DO PROCEDURE: STROKE [...] caliber. There is origin of the right YARD JACKER. The middle and posterior cerebral arteries are [...] at 8:50 pm on 02/10/25. Reading Location: [facility] CC: Dr. Beka Bowie MD; Dr. Jasbir Curry DO ~ Production Sanitizer: Signed [facility]03-25-2025 Radiology Diagnostic study note [facility] Imaging Services [address] [place] [address] [id number] Chest PA and Lateral MR#: [id number] Acct: [id number] Name: LATONYA ELDER Rep #: [id number] : 1970 M 54 From: Kelvin Woods MD PCP: Dr. Beka Bowie MD Status: R ER Study:Chest PA and Lateral Date of Exam: 02/10/25 Exam# [id number] Ordering Dr: Nancy Curry DO PROCEDURE: CHEST [...] are new since prior examination. Reading Location: [id number] CC: Dr. Beka Bowie MD; Dr. Jasbir Curry DO ~ Production Sanitizer: Signed [facility]03-25-2025 Radiology Diagnostic study note [facility] Imaging Services [address] [place], [place] [address] STROKE Brain/Head without Cont MR#: [id number] Acct: [id number] Name: LATONYA ELDER Rep #: [id number] : 1970 M 54 From: [facility] pierce Woods MD PCP: Dr. Beka Bowie MD Status: R EG ER Study:STROKE Brain/Head without Cont Date of Exam: 02/10/25 Exam# [id number] Ordering Dr: Nancy Curry DO EXAM: CT [...] 8:00 pm with readback verification. Reading Location: [id number] CC: Dr. Beka Bowie MD; Dr. Jasbir Curry DO ~ Production Sanitizer: Signed [facility]11-25-2024 [facility] Medical Records Department [address] [place] [address] [place] [address] Discharge Summary 10/13/24 1333 MR#: [id number] Acct: [id number] Name: LATONYA ELDER Rep #: [id number] : 1970 54 From: Manuelito Green DO PCP: Dr. Beka Bowie MD Status:DIS IN [id number] Prov[facility] Date of Admission: 10/11/24 Date of [...] artery disease #5 elevated troponin-not diagnostic of iwb-QNWPR-uwdadhoh unclear Medications at Discharge Home Medications aspirin 81 mg chewable tablet 81 mg PO DAILY heart health 04/27/22 loratadine 10 mg tablet 10 mg PO DAILY PRN allergies 06/26/22 carvedilol 25 mg tablet 25 mg PO BIDCM [facility] tabs 04/24/23 clonidine HCl 0.1 [...] was seen in the emergency room at [facility] with complaints of shortness of breath and [...] organomegaly, masses, or abdomin (more content not included)...[facility] 03-17-2024 NoteHNO ID: [id number] Author: RAD RENEE APRN.RADIOLOGIST DIAGNOSTIC Service: ? Author Type: Nurse Practitioner Type: Progress Notes Filed: 03/17/2024 07:43 Note Text: This note was created using Diagnople[employer]. Prema Elder is a 53 year old [...] UNIT-TRIMETHOPRIM 1 MG/ML EYE DROPS Rad Renee APRN.[facility]04-29-2024 Instructions* Patient Instructions* Rad Renee APRN.RACHEL - [...] 100.5 F (38 C). [facility] History of Present illness Narrative* Rad Renee APRN.RACHEL - 03/17/2024 7:37 AM EDT This note was created using [employer]ople[employer]. Subjective Latonya Elder is a 53 year [...] UNIT-TRIMETHOPRIM 1 MG/ML EYE DROPS Rad Renee APRN.RADIOLOGIST DIAGNOSTIC [facility] Progress note Author Harvey Murphy [facility] December 26, 2023 9:31am Note Date/Time December 26, 2023 9 :25am [facility] Medical Records Department [address] [place] [address] Progress Note - Cardiology 12/26/23 0923 MR#: [id number] Acct: [id number] Name: LATONYA ELDER Rep #:[id number] : 1970 53 From: Harvey Murphy MD PCP: Dr. Beka Bowie MD Status:A DM IN Location: [place] [address] Subjective Subjective The patient is sitting up [...] call for office visit. (2) Non-ST elevation WA (NSTEMI): PLAN: The patient underwent stenting of [...] to Brilinta he should be discharged on Ieyrseql41 mg twice daily. This should be maintained for at least 6 weeks and then if necessary can be switched back to his chronic Plavix. 3. Right cardiovascular standpoint the patient can be discharged home. Charges/Coding Visit Charges Inpatient E&M: 14839 Subs Hosp L2 12/26/23930 <Electronically signed by Harvey Murphy MD> Cosigner Signature (if applicable): CC: ~ Signed [facility] Work Phone: 1(351) 537-154702-07-2024 Discharge summary Author Maldonado Whitt [facility] December 26, 2023 11:16am Note Date/Time December 26, 2023 9 :21am [facility] Medical Records Department [address] [place] [address] Instructions for Home/Discharge Instructions 12/26/23919 MR#: [id number] Acct: [id number] Name: LATONYA ELDER Rep #:[id number] : 1970 53 From: Maldonado mcmullen DO [...] MD; Dr. Mary Lewis MD ~ Signed [facility] Work Phone: 1(602) 768-567502-07-2024 Progress note Author Maldonado Whitt [facility] December 25, 2023 11:15pm Note Date/Time December 25, 2023 3 :18pm [facility] Medical Records Department [address] [place] [address] Progress Note - Hospitalist 12/25/23 1518 MR#: [id number] Acct: [id number] Name: LATONYA ELDER Rep #:[id number] : 1970 53 From: Maldonado mcmullen DO PCP: Dr. Beka Bowie MD Status:A DM IN Location: [place] [address]- Reason for Visit Reason for Visit: Diagnoses [...] (Auto) 75.1 H, Lymph % (Auto) 14.1 L,[place] % (Auto) 8.8, Eos % (Auto) 1.0, [...] Assessment & Plan Assessment/Plan (1) Non-ST elevation WA (NSTEMI): (2) Hypertensive emergency: PLAN: Plan Patient is a 53 year old male who presented to [facility] ED on 12/24/2023 with worsening chest pain. [...] 35 minutes. Charges/Coding Visit Charges Inpatient E&M: 53402 Subs Hosp L2 12/25/23 0450 <Electronically signed by Maldonado Whitt DO> Cosigner Signature (if applicable): CC: ~ Signed [facility] Work Phone: 1(736) 757-774802-06-2024 Progress note Author Harvey Murphy [facility] December 25, 2023 7:52am Note Date/Time December 25, 2023 7 :53am [facility] Medical Records Department [address] [place] [address] Progress Note - Cardiology 12/25/23 0747 MR#: [id number] Acct: [id number] Name: LATONYA ELDER Matt Rep #:[id number] : 1970 53 From: Harvey Murphy MD PCP: Dr. Beka Bowie MD Status:A DM IN Location: [place] [address]- 1 Subjective Subjective Patient reports he had [...] % (Auto) 67.1, Lymph % (Auto) 20.4, [place] % (Auto) 10.0, Eos % (Auto) 0.9, [...] (Auto) 75.1 H, Lymph % (Auto) 14.1 L,[place] % (Auto) 8.8, Eos % (Auto) 1.0, [...] % (Auto) 67.1, Lymph % (Auto) 20.4, [place] % (Auto) 10.0, Eos % (Auto) 0.9, [...] 75.1 H, Lymph % (Auto) 14.1 L, [place] % (Auto) 8.8, Eos % (Auto) 1.0, [...] Assessment & Plan Assessment/Plan (1) Non-ST elevation WA (NSTEMI): PLAN: Patient's enzymes appear to peaked [...] coronary anatomy. Charges/Coding Visit Charges Inpatient E&M: 34040 Subs Hosp L2 12/25/23 0752 <Electronically signed by Harvey Murphy MD> Cosigner Signature (if applicable): CC: ~ Signed [facility] Work Phone: 1(300) 407-758202-05-2024 Consult note Author Harvey Murphy [facility] December 24, 2023 3:20pm Note Date/Time December 24, 2023 2 :56pm [facility] Medical Records Department [address] [place] [address] Consultation - Cardiology 12/24/23 1454 MR#: [id number] Acct: [id number] Name: LATONYA ELDER Rep #:[id number] : 1970 53 From: Harvey Murphy MD PCP: Dr. Beka Bowie MD Status:A DM IN Location: [place] [address] Assessment & Plan Assessment/Plan (1) Non-ST elevation WA (NSTEMI): PLAN: The patient's symptoms are consistent [...] [facility] History Acute sinusitis, unspecified Asthma Atherosclerosis of [place] coronary artery of [place] heart without angina pectoris Chronic obstructive pulmonary disease (COPD) Cluster headache Community acquired pneumonia COPD (chronic obstructive pulmonary disease) Coronary artery disease Diabetes Essential hypertension Headache History of non-ST elevation myocardial infarction (NSTEMI) (11/22/20) Hyperlipidemia Insulin dependent diabetes mellitus Ischemic cardiomyopathy Left shoulder pain Migraine Myocardial infarct Nicotine dependence Non-ST elevation WA (NSTEMI) Obesity Obesity (BMI 30.0-34.9) Smoker Home [...] 20% Risk Charges/Coding Visit Charges Inpatient E&M: 69528 Init Hosp L3 Objective Data Vital Signs: [...] % (Auto) 67.1, Lymph % (Auto) 20.4, [place] % (Auto) 10.0, Eos % (Auto) 0.9, [...] % (Auto) 67.1, Lymph % (Auto) 20.4, [place] % (Auto) 10.0, Eos % (Auto) 0.9, [...] 13:13 EST Reading Location ID and State: [address] [place] [address] , Service support , EKG Initial EKG: Attestation: I personally reviewed and interpreted this EKG as follows: Prior EKG tracings: available for review Interpretation: Normal sinus rhythm with nonspecific ST-T wave changes no significant change from prior EKG. 12/24/23 1520 <Electronically signed by Harvey Murphy MD> Cosigner Signature (if applicable): CC: Dr. Beka Bowie MD~ Signed [facility] Work Phone: 1(836) 153-240002-05-2024 History and physical note Author Mary Lewis [facility] December 24, 2023 3:15pm Note Date/Time December 24, 2023 3 :13pm [facility] Medical Records Department [address] [place] [address] H&P Exam - Hospitalist 12/24/23 1503 MR#: [id number] Acct: [id number] Name: LATONYA ELDER Rep #:[id number] : 1970 53 From: Mary Lewis MD PCP: Dr. Beka Bowie MD Status:A DM IN Location: [facility] [id number] HPI - General General Date of Admission: 12/24/23 Date of Service: 12/24/23 Chief Complaint: Chest pain, SOB HPI Narrative LATONYA ELDER, is a 53-year-old male history of COPD, tobacco use, hypertension, type 2 diabetes mellitus, CAD with 7 stents who presented to [facility] ED 12/24/2023 with chest pain for the [...] History Acute sinusitis, unspecified Asthma Atherosclerosis of [place] coronary artery of [place] heart without angina pectoris Chronic obstructive pulmonary disease (COPD) Cluster headache Community acquired pneumonia COPD (chronic obstructive pulmonary disease) Coronary artery disease Diabetes Essential hypertension Headache History of non-ST elevation myocardial infarction (NSTEMI) (11/22/20) Hyperlipidemia Insulin dependent diabetes mellitus Ischemic cardiomyopathy Left shoulder pain Migraine Myocardial infarct Nicotine dependence Non-ST elevation WA (NSTEMI) Obesity Obesity (BMI 30.0-34.9) Smoker Home [...] % (Auto) 67.1, Lymph % (Auto) 20.4, [place] % (Auto) 10.0, Eos % (Auto) 0.9, [...] 13:13 EST Reading Location ID and State: [address] [place] [address] , Service support , Assessment & Plan [...] hep gtt Charges/Coding Visit Charges Inpatient E&M: 93320 Init Hosp L2 12/24/23 6091 <Electronically signed by Mary Lewis MD> Cosigner Signature (if applicable): CC: Dr. Beka Bowie MD; Dr. Mary Lewis MD~ Signed [facility] Work Phone: 1(728) 785-905702-05-2024 Discharge summary Author Pollo Bond [facility] December 24, 2023 3:00pm Note Date/Time December 24, 2023 1 2:40pm [facility] Medical Records Department [address] [place] [address] Emergency Department Summary 12/24/23 MR#: [id number] Acct: [id number] Name: LATONYA ELDER Rep #:[id number] : 1970 53 From: Pollo Bond MD [...] History Acute sinusitis, unspecified Asthma Atherosclerosis of [place] coronary artery of [place] heart without angina pectoris Chronic obstructive pulmonary disease (COPD) Cluster headache Community acquired pneumonia COPD (chronic obstructive pulmonary disease) Coronary artery disease Diabetes Essential hypertension Headache History of non-ST elevation myocardial infarction (NSTEMI) (11/22/20) Hyperlipidemia Insulin dependent diabetes mellitus Ischemic cardiomyopathy Left shoulder pain Migraine Myocardial infarct Nicotine dependence Non-ST elevation WA (NSTEMI) Obesity Obesity (BMI 30.0-34.9) Smoker Home [...] and heparin drip after discussion with the pressroom foreman, Dr. Harvey Murphy. Additionally, I discussedthe patient [...] % (Auto) 67.1 Lymph % (Auto) 20.4 [place] % (Auto) 10.0 Eos % (Auto) 0.9 [...] healthcare provider: Hospitalist (Dr. Mary Lewis) and Molecular Pathologist (Dr. Harvey Murphy) Critical Care Time Critical care time (excluding procedures): 30-74 minutes (31), Including time spent:, Discussing w/Patient &/or Family/Wage Analyst, Discussing w/Consultants, Arranging Admission or Transfer and Performing Direct Patient Care at Bedside Discharge Plan Dx/Rx/DC Orders Clinical Impression: Nicotine dependence, Hypertensive emergency, Non-ST elevation WA (NSTEMI), Chest pain Disposition Disposition: Acute Care Hospital [facility] What to do if you have Problems For any increased pain, shortness of breath, bleeding, nausea or vomiting, chestpain, or any unexpected problems, contact your Primary Care Provider. Call [facility] ([phone]) or report to the closest Emergency Room. Call 911 if necessary. 12/24/23 1500 <Electronically signed by Pollo Bond MD> Cosigner Signature (if applicable): CC: Dr. Beka Bowie MD ~ Signed [facility] Work Phone: 1(286) 121-626501-03-2024 Discharge summary Author Luis York [facility] November 21, 2023 10:11am Note Date/Time November 21, 2023 7: 12am [facility] Medical Records Department [address] [place] [address] Emergency Department Summary 11/21/23 MR#: [id number] Acct: [id number] Name: LATONYA ELDER Rep #:[id number] : 1970 53 From: Luis York MD [...] History Acute sinusitis, unspecified Asthma Atherosclerosis of [place] coronary artery of [place] heart without angina pectoris Chronic obstructive pulmonary disease (COPD) Cluster headache Community acquired pneumonia COPD (chronic obstructive pulmonary disease) Coronary artery disease Diabetes Essential hypertension Headache History of non-ST elevation myocardial infarction (NSTEMI) (11/22/20) Hyperlipidemia Insulin dependent diabetes mellitus Ischemic cardiomyopathy Left shoulder pain Migraine Myocardial infarct Nicotine dependence Non-ST elevation WA (NSTEMI) Obesity Obesity (BMI 30.0-34.9) Smoker Home [...] arms there was no vertical drip. His vp training were normal. Facial structure was normal. Sensation [...] threshold to return. He should call his pressroom foreman, Dr. Flores for close follow-up. Make sure [...] % (Auto) 62.0 Lymph % (Auto) 25.2 [place] % (Auto) 9.8 Eos % (Auto) 2.0 [...] your Primary Care Provider. Call [facility] ([phone]) or report to the closest Emergency Room. Call 911 if necessary. 11/21/23 1011 <Electronically signed by Luis York MD> Cosigner Signature (if applicable): CC: Dr. Beka Bowie MD ~ Signed [facility] Work Phone: Consult note Author Harvey Murphy [facility] December 24, 2023 3:20pm Note Date/Time December 24, 2023 2 :56pm [facility] Medical Records Department [address] [place] [address] Consultation - Cardiology 12/24/23 1454 MR#: [id number] Acct: [id number] Name: LATNOYA ELDER Rep #:[id number] : 1970 53 From: Harvey Murphy MD PCP: Dr. Beka Bowie MD Status:A DM IN Location: [place] [id number]- [id number] Assessment & Plan Assessment/Plan (1) Non-ST elevation WA (NSTEMI): PLAN: The patient's symptoms are consistent [...] History Acute sinusitis, unspecified Asthma Atherosclerosis of [place] coronary artery of [place] heart without angina pectoris Chronic obstructive pulmonary disease (COPD) Cluster headache Community acquired pneumonia COPD (chronic obstructive pulmonary disease) Coronary artery disease Diabetes Essential hypertension Headache History of non-ST elevation myocardial infarction (NSTEMI) (11/22/20) Hyperlipidemia Insulin dependent diabetes mellitus Ischemic cardiomyopathy Left shoulder pain Migraine Myocardial infarct Nicotine dependence Non-ST elevation WA (NSTEMI) Obesity Obesity (BMI 30.0-34.9) Smoker Home [...] 20% Risk Charges/Coding Visit Charges Inpatient E&M: 89747 Init Hosp L3 Objective Data Vital Signs: [...] % (Auto) 67.1, Lymph % (Auto) 20.4, [place] % (Auto) 10.0, Eos % (Auto) 0.9, [...] % (Auto) 67.1, Lymph % (Auto) 20.4, [place] % (Auto) 10.0, Eos % (Auto) 0.9, [...] 13:13 EST Reading Location ID and State: [facility] / [place] , Service support , EKG Initial EKG: Attestation: I personally reviewed and interpreted this EKG as follows: Prior EKG tracings: available for review Interpretation: Normal sinus rhythm with nonspecific ST-T wave changes no significant change from prior EKG. 12/24/23 1520 <Electronically signed by Harvey Murphy MD> Cosigner Signature (if applicable): CC: Dr. 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 Reading Location: [id number] Brain CT 02/10/25 18:31 IMPRESSION: 1.9 by [...] 8:00 pm with readback verification. Reading Location: [id number] Head/Neck CTA 02/10/25 18:31 IMPRESSION: 1. Large [...] at 8:50 pm on 02/10/25. Reading Location: [facility] Brain MRI 02/11/25 00:16 IMPRESSION: Acute white matter infarction, with stable size, seen in the area hypodensity noted in the CT of 02/11/2025. Reading Location: [address] Echocardiogram 02/11/25 00:16 Interpretation Summary Normal [...] with neurology at your early convenience. [facility] [phone]. [facility] [place] [phone]. [facility] [place] [phone]. [facility] [phone]. [facility] [phone] Additionally looks like you have a pneumonia [...] Recorder Preventi (Urgent) Timeframe: 1 Day Facility: [facility] - Location: Cardiovascular Services Ordered By: Dr. Brennon Juarez Referrals / Follow Up: Beka Bowie MD [Primary Care Provider] - Within 2 Weeks Disposition Disposition (needs filled in before D/C Order can be placed): Home, Self Care Charges/Coding Visit Charges Inpatient E&M: 05989 Disch Hosp >30min 02/11/25 1432 <Electronically signed by Brennon Juarez DO> Cosigner Signature (if applicable): CC: Dr. Beka Bowie MD; Dr. 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 Nicotine dependence chronic History of coronary artery stent placement November 182020 resolved Coronary artery disease acut e Essential hypertension acute Insulin dependent diabetes mellitus acute Nicotine dependence chronic History of coronary artery stent placement November 182020 resolved Diabetes acute Obesity (BMI 30.0-34.9) 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 Coronary artery disease acut e Unstable angina acute [facility] Work Phone: Evaluation note* Diagnosis Onset Date Resolution Status Essential hypertension acute [id number] chronic Hyperlipidemia chronic 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 Nicotine dependence chronic History of coronary artery stent placement November 182020 resolved Coronary artery disease acut e Essential hypertension acute Insulin dependent diabetes mellitus acute Nicotine dependence chronic History of coronary artery stent placement November 182020 resolved Diabetes acute Obesity (BMI 30.0-34.9) 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 Chest pain acute Coronary artery disease acut e Essential hypertension acute Unstable angina acute [id number] chronic History of non-ST elevation myocardial infarction (NSTEMI) November 22, 2020 chronic Hyperlipidemia chronic History of coronary artery stent placement November 182020 resolved [facility] Work Phone: Evaluation note* Diagnosis Onset Date Resolution Status Diabetes acute Obesity (BMI 30.0-34.9) 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 Essential hypertension acute Chest pain resolved Unstable angina resolved Essential hypertension acute 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 Nicotine dependence chronic Diabetes acute Essential hypertension acute Left shoulder pain acute [facility] Work Phone: Evaluation note* Diagnosis Onset Date Resolution Status Diabetes acute Obesity (BMI 30.0-34.9) 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 Essential hypertension acute Chest pain resolved Unstable angina resolved Essential hypertension acute 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 Nicotine dependence chronic Diabetes acute Essential hypertension acute Left shoulder pain acute Diabetes acute Hypertensive urgency acute Non-ST elevation (NSTEMI) myocardial infarction acute [facility] Work Phone: evaluation note* Diagnosis Onset Date Resolution Status Diabetes acute Obesity (BMI 30.0-34.9) 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 [id number] acute Essential hypertension acute Chest pain resolved Unstable angina resolved [id number] acute Essential hypertension acute 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 Nicotine dependence chronic Diabetes acute Essential hypertension acute Left shoulder pain acute [id number] acute Diabetes acute Essential hypertension acute Hypertensive urgency acute Non-ST elevation (NSTEMI) myocardial infarction acute [facility] Work Phone: evaluation noteNo assessment information available [facility] Work Phone: evaluation note* Diagnosis Onset Date Resolution Status Chest pain acute Essential hypertension acute COPD (chronic obstructive pulmonary disease) chronic Nicotine dependence chronic [facility] Work Phone: Evaluation note* Diagnosis Onset Date Resolution Status Chest pain acute Essential hypertension acute COPD (chronic obstructive pulmonary disease) chronic Nicotine dependence chronic Chest pain acute Essential hypertension acute History of coronary artery stent placement November 182020 acute Hypertensive emergency acute Non-ST elevation [place] (NSTEMI) acute COPD (chronic obstructive pulmonary disease) chronic Nicotine dependence chronic Elevated troponin resolved Hypertensive urgency resolve d [facility] Work Phone: Evaluation note* Diagnosis Onset Date Resolution Status Chest pain acute Essential hypertension acute COPD (chronic obstructive pulmonary disease) chronic Nicotine dependence chronic Chest pain acute Essential hypertension acute History of coronary artery stent placement December acute Hypertensive emergency acute Non-ST elevation [place] (NSTEMI) acute COPD (chronic obstructive pulmonary disease) chronic Nicotine dependence chronic Elevated troponin resolved Hypertensive urgency resolve d [facility] Work Phone: Evaluation note* Diagnosis Onset Date Resolution Status Chest pain resolved Chest pain resolved Elevated troponin resolved Hypertensive emergency resol cameron Hypertensive urgency resolve d Non-ST elevation [place] (NSTEMI) resolved Chest pain resolved Non-ST elevation WA (NSTEMI) resolved [facility] Work Phone: Evaluation note* Diagnosis Onset Date Resolution Status COPD (chronic obstructive pulmonary disease) chronic Essential hypertension chron ic Chest pain resolved COPD (chronic obstructive pulmonary disease) chronic Essential hypertension chron ic Chest pain resolved Elevated troponin resolved Hypertensive emergency resol cameron Hypertensive urgency resolve d Non-ST elevation [place] (NSTEMI) resolved Essential hypertension chron ic Chest pain resolved Non-ST elevation WA (NSTEMI) resolved Vitamin D deficiency acute Essential hypertension chron ic 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 COPD (chronic obstructive pulmonary disease) chronic Essential hypertension chron ic Insulin dependent diabetes mellitus chronic [facility] Work Phone: Evaluation note* Diagnosis Bacterial conjunctivitis- Primary Other conjunctiv[facility] Diagnosis Onset Date Resolution Status Admit Date Abnormal computed tomography angiography of head acute February 11, 2025 12:04am Acute bacterial bronchitis acute February 11, 2025 12:04am Acute CVA (cerebrovascular accident) acute February 11, 2025 12:04am Obesity (BMI 30-39.9) acute Jan 12:04am Uncontrolled hypertension acute February 11, 2025 12:04am COPD exacerbation chronic January 182024 12:04am [facility] Work Phone: History and physical note Author Mary Lewis [facility] December 24, 2023 3:15pm Note Date/Time December 24, 2023 3 :13pm [facility] Medical Records Department [address] [place] [address] H&P Exam - Hospitalist 12/24/23 1503 MR#: [id number] Acct: [id number] Name: LATONYA ELDER Rep #:[id number] : 1970 53 From: Mary Lewis MD PCP: Dr. Beka Bowie MD Status:A DM IN Location: [facility] [id number] HPI - General General Date of Admission: 12/24/23 Date of Service: 12/24/23 Chief Complaint: Chest pain, SOB HPI Narrative LATONYA ELDER, is a 53-year-old male history of COPD, tobacco use, hypertension, type 2 diabetes mellitus, CAD with 7 stents who presented to [facility] ED 12/24/2023 with chest pain for the [...] History Acute sinusitis, unspecified Asthma Atherosclerosis of [place] coronary artery of [place] heart without angina pectoris Chronic obstructive pulmonary disease (COPD) Cluster headache Community acquired pneumonia COPD (chronic obstructive pulmonary disease) Coronary artery disease Diabetes Essential hypertension Headache History of non-ST elevation myocardial infarction (NSTEMI) (11/22/20) Hyperlipidemia Insulin dependent diabetes mellitus Ischemic cardiomyopathy Left shoulder pain Migraine Myocardial infarct Nicotine dependence Non-ST elevation [place] (NSTEMI) Obesity Obesity (BMI 30.0-34.9) Smoker Home [...] % (Auto) 67.1, Lymph % (Auto) 20.4, [place] % (Auto) 10.0, Eos % (Auto) 0.9, [...] 13:13 EST Reading Location ID and State: [facility] / [place] , Service support , Assessment & Plan [...] hep gtt Charges/Coding Visit Charges Inpatient E&M: 89717 Init Hosp L2 12/24/23 1515 <Electronically signed by Mary Lewis MD> Cosigner Signature (if applicable): CC: Dr. Beka Bowie MD; Dr. Mary Lewis MD~ Signed [facility] Work Phone: Reason for referral (narrative)No reason for referral information [facility]WW[facility] Work Phone: Chief Complaint and Reason for Visit Chief Complaint FU FROM ER chest pain chest pain 3 M FU 6 M FU UNSTABLE ANGINA Reason for Visit Essential hypertensi on [id number] Hyperlipidemia Ischemic cardiomyopathy Nicotine dependence History of [...] ANGINA Reason for Visit Essential hypertensi on [id number] Hyperlipidemia Ischemic cardiomyopathy Nicotine dependence History of coronary artery stent placement Coronary artery disease Essential hypertension Insulin dependent diabetes mellitus Nicotine dependence History of coronary artery stent placement Diabetes Obesity (BMI 30.0-34.9) Chest pain Coronary artery disease Essential hypertension Unstable angina [id number] History of non-ST elevation myocardial infarction (NSTEMI) [...] Reason for Visit Diabetes Obesity (BMI 30.0-34.9) [id number] Essential hypertension Chest pain Unstable angina [id number] Essential hypertension Ischemic cardiomyopathy Nicotine dependence Diabetes Essential hypertension Left shoulder pain [id number] Diabetes Essential hypertension Hypertensive urgency Non-ST elevation [...] artery stent placement Hypertensive emergency Non-ST elevation [place] (NSTEMI) COPD (chronic obstructive pulmonary disease) Nicotine [...] artery stent placement Hypertensive emergency Non-ST elevation WA (NSTEMI) COPD (chronic obstructive pulmonary disease) Nicotine dependence Elevated troponin Hypertensive urgency Chief Complaint CHEST PAIN CHEST PAIN ER FU CHEST PAIN CHEST PAIN Amb Documentation NSTEMI, HYPERTENSIVE EMERGENCY NSTEMI, HYPERTENSIVE EMERGENCY NSTEMI, HYPERTENSIVE EMERGENCY NSTEMI, HYPERTENSIVE EMERGENCY NSTEMI, HYPERTENSIVE EMERGENCY [facility] FOLLOW UP Reason for Visit Chest pain Chest pain Elevated troponin Hypertensive emergency Hypertensive urgency Non-ST elevation [place] (NSTEMI) Chest pain Non-ST elevation WA (NSTEMI) Chief Complaint CHEST PAIN CHEST PAIN ER FU CHEST PAIN CHEST PAIN Amb Documentation NSTEMI, HYPERTENSIVE EMERGENCY NSTEMI, HYPERTENSIVE EMERGENCY NSTEMI, HYPERTENSIVE EMERGENCY NSTEMI, HYPERTENSIVE EMERGENCY NSTEMI, HYPERTENSIVE EMERGENCY [facility] FOLLOW UP S/P [facility] 12/26 HTN URGENCY fu Severe persistent asthma, uncomplicated Reason for Visit COPD (chronic obstru ctive pulmonary disease) Essential hypertension Chest pain COPD (chronic obstructive pulmonary disease) Essential hypertension Chest pain Elevated troponin Hypertensive emergency Hypertensive urgency Non-ST elevation WA (NSTEMI) Essential hypertension Chest pain Non-ST elevation WA (NSTEMI) Vitamin D deficiency Essential hypertension Ischemic [...] April 27, 2022 7 :19am Power of Byproduct Engineer No April 27, 2022 7:19am Advance Directive Response Recorded Date/ Time Advance Directives No June 01 2:28pm Living Will No April 27, 2022 1 0:04am Power of Byproduct Engineer No April 27, 2022 10:04am Advance Directive Response Recorded Date/ Time Advance Directives No June 01 2:28pm Living Will No June 26, 2022 1:06am Power of Byproduct Engineer No June 26 1:06am Advance Directive Response Recorded Date/ Time Advance Directives No June 01 2:28pm Living Will No June 26, 2022 4:53am Power of Byproduct Engineer No June 26 4:53am Advance Directive Response Recorded Date/ Time Advance Directives No June 01 1:28pm Living Will No November 21 6:37am Power of Byproduct Engineer No November 21 6:37am Advance Directive Response Recorded Date/ Time Advance Directives No June 01 1:28pm Living Will No December 24 12:50pm Power of Byproduct Engineer No December 24, 2023 12:50pm Advance Directive Response Recorded Date/ Time Advance Directives No June 01 1:28pm Living Will No December 24 4:35pm Power of Byproduct Engineer No December 24, 2023 4:35pm Advance Directive Response Recorded Date/ Time Advance Directives No June 01 2:28pm Living Will No December 24 5:35pm Power of Byproduct Engineer No December 24, 2023 5:35pm Advance Directive Response Recorded Date/ Time Living Will No February 10, 2025 6:08pm Do you have a Healthcare Power of Byproduct Engineer? No February 10, 2025 6:08pm Advance Directives No June 01 2:28pm Advance Directive Response Recorded Date/ Time Living Will No February 11, 2025 12:38am Do you have a Healthcare Power of Byproduct Engineer? No February 11, 2025 12:38am Advance Directives [...] MD Other Provider Active Start: [facility] 2024 End: February 11, 2025 Dr. [...] Federico Ramirez MD Other Provider Active Start: [facility] 2024 Dr. Willie Aguiar MD Other Provider [...] MD Primary Care Provider Active Hesham Canchola NEWSPAPER PRESS OPERATOR APPRENTICE, NEWSPAPER PRESS OPERATOR APPRENTICE-C Attending Provider Active Team Status: Inactive Member [...] Status: Inactive Member Role Status Dates Dr. Bkea Bowie MD Primary Care P rovider, Attending Provider, Referring Provider Active Team Status: Inactive Member Role Status Dates Dr. Beka Bowie MD Primary Care Provider Active Dr. Anupam Zuleta MD Attending Provider, Referrin g Provider Active Team Status: Inactive Member Role Status Dates Dr. 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 Beka Bowie MD Primary Care Provider Active Start: February 11, 2025 Dr. Jasbir Curry DO Emergency Provider Active Start: February 11, 2025 Dr. Mitchell Deras DO Admit Provider Active Start: February 11, 2025 Dr. Mitchell Deras DO Attending Provider Active Start: February 11, 2025 Federico Ramirez MD Other Provider Active Start: [facility] 2024 Dr. Willie Aguiar MD Other Provider [...] or prosecute any alcohol or drug abuse patient.[facility] Reason for Visit (unrecogniz ed section and content) Reason Comments Eye Problem left eye x 2 days, d rainage and matting (unrecognized sect ion and content) No Status Records FoundNo Status Records Found INFORMATION SOURCE (unrecogn ized section and content) DATE CREATED AUTHOR 03/17/2024 [facility] DATE CREATED AUTHOR AUTHOR'S ELLEN NICOLAS 04/01/2025 [facility] FOR RECORDS PERTAINING TO PATIENTS WHO ARE [...] BE BASED ON THE PRIMARY CLINICAL RECORDS. [employer] provides no warranty or guarantee of the accuracy or completeness of information in this document.
--- OUTSIDE RECORDS SUMMARY | 2025-07-06 00:57 | XMS RPT_ITS | CCD ---
Author Organization [facility] Care Team Providers Care Entry Manager Name Role Phone MD Flores Cyril S Unavailable Jesika DIE FINISHER FORGING, Hesham Sharma Unavailable Valeriano Weir Unavailable Unavailable MD Flores Cyril S Unavailable Valeriano Weir Unavailable Unavailable VETO Liang, Crista Duran Unavailable Unavailabl e Dr. Beka Bowie Primary Care Provider [phone] Dr. Beka Bowie Referring Provider [phone] Shimon DIE FINISHER FORGING, DIE FINISHER FORGING-C Mare Attending Provider Shimon VICTOR, DIE FINISHER FORGING-C Mare Referring Provider Shimon VICTOR, DIE FINISHER FORGING-C Mare Other Provider [phone] Dr. Eric [...] Provider Dr. Eric Flores Other Provider Roof DIE FINISHER FORGING, DIE FINISHER FORGING-Yung Sharma Attending Provider MD [facility] [...] 00 Dr. Eric Flores Other Provider Jesika DIE FINISHER FORGING, DIE FINISHER FORGING-Yung Sharma Attending Provider MD [facility] [...] Unavailable Dr. Willie Aguiar MD Other Provider [phone] Ayla Todd MD Other Provider Unavailable Dr. Zeynep Daly DO Other Provider Laurel EVANGELISTA, Dr. Betancourt Other Provider Say EVANGELISTA, Dr. Clark Other Provider [phone] Augustine EVANGELISTA, Dr. Bullard Other Provider [phone] William EVANGELISTA, Dr. Silva Other Provider [phone] Satish EVANGELISTA, Dr. Douglass Other Provider Torey EVANGELISTA, Dr. Ma Other Provider Lary EVANGELISTA, Farzana Other Provider Edna EVANGELISTA, Dr. Resendez Other Provider Randy EVANGELISTA, Dr. Oakley Other Provider Romero EVANGELISTA, Dr. Sevilla Other Provider Richie EVANGELISTA, Dr. Kala Barnes Other Provider Nic EVANGELISTA, Dr. Smith Other Provider [phone] Gene EVANGELISTA, Dr. Ramos Other Provider Darwin EVANGELISTA, Dr. Kevin Other Provider Jerad EVANGELISTA, Dr. Ann Other Provider Unavailable Raciel EVANGELISTA, Grant Other Provider Unavailable Dr. Mitchell Deras DO Other Provider Unavail able Dr. Brennon Juarez DO Attending Provider [phone] Brennon Juarez DO Other Provider [phone] Sandra EVANGELISTA, Dr. Reyes Attending Provider [phone] Oleghe, Efewongbe Primary Care Unavailable Brennon Mckeon [...] Primary Care Unavailable Mitchell Deras Referring Unavailable [facility] Unavailable Brennon Coronado Attending Unavailable Eric Flores Attending Unavailable [facility] Unavailable Brennon Juarez Referring Unavailable Allergies Allergy Classification Reported Allergen(s) Allergy Type Date of Onset Reaction(s) Facility (20 sources) amoxicillin; Translations: [AMOXICILLIN] drug allergy [address] [facility] Work Phone: (9 sources) amoxicillin / clavulanate drug allergy 7 severe rash [facility] Work Phone: (20 sources) codeine; Translations: [CODEINE] drug allergy 5 GI Upset [facility] Work Phone: (14 sources) Amoxicillin; Translations: [amoxicillin trihydrate] Drug Allergy 2 [place] (14 sources) potassium clavulanate; Translations: [potassium clavulanate] Allergy to substance 2 [place] (5 sources) Ticagrelor Drug Allergy 4 Shortness of Breath [facility] (1 source) Ticagrelor Drug Allergy 5 [facility] Repository Medications Current Medications Medication Drug Class(es) Dates Sig (Normalized) Sig (Original) [id number] actuat albuterol 0.09 mg/actuat metered dose [...] TBEC One tablet by mouth daily ASPIRIN [id number] Suly Yoder RN Start: 12-12-2016 End: 04-27-2022 take 1 tablet by mouth once daily Aspirin 81 MG tablet,chewable Active 81 mg PO DAILY April 27, 2022 9:58am brompheniramine maleate 0.4 mg/ml / dextromethorphan hydrobromide 2 mg/ml / pseudoephedrine hydrochloride 6 mg/ml oral solution (1 source) alpha-Adrenergic Agonist, Uncompetitive Q-tynfjg-D-aspartate Receptor Antagonist, Sigma-1 Agonist Start: 10-29-2018 take 5 mL by mouth four times daily as needed Vdgatrsgbohbnve-Nhjpdjxdo-IL (BROMFED DM) 2-30-10 mg/5 mL syrup Indications: [...] Active Fluticasone-Umecl idin-Vilanter (1 source) Start: 06-16-2021 Tuwvlmuavjn-Eyejplvma-Torafh e r Active 1 INH INHALATION DAILY [...] the information source for Protocol details. Insulin [place] (Disposable) (1 source) Start: 05-25-2021 Insulin Needle [...] 12:00am May 01, 2021 9:03am polymyxin b 33584 unt/ml / trimethoprim 1 mg/ml ophthalmic solution [...] One tablet by mouth daily AMLODIPINE BESYLATE [id number] Hesham Sharma Jesika DIE FINISHER FORGING apixaban 5 mg oral tablet (2 sources) [...] 2 puffs twice daily BUDESONIDE-FORMOT CHASE FUMARATE [id number] Suly Yoder RN Start: 12-22-2016 SYMBICORT 80-4 .5 MCG/ACT AERO inhale 2 puffs twice daily BUDESONIDE-FORMOTEROL FUMARATE [id number] Suly Yoder RN carvedilol 25 mg oral [...] 23, 2021 5:10pm Start: 04-28-2021 End: 11-23-2021 Vrmpwxjakjt-Movsejuwg-Yynzha er (Trelegy Ellipta) 100-62.5-25 mcg Blister With Device Discontinued 1 NMA INHALATION DAILY April 28, 2021 12:00am November 23, 2021 5:10pm Start: 04-28-2021 End: 11-23-2021 Xwyflfmuokn-Ceqcaafrs-Xigvdu er (Trelegy Ellipta) 100-62.5-25 mcg Blister With Device Discontinued 1 INH INHALATION DAILY April 27, 2021 11:00pm November 23, 2021 4:10pm Start: 04-28-2021 End: 11-23-2021 Czqjoepqimh-Egwiqbflb-Vdfnul er (Trelegy Ellipta) 100-62.5-25 mcg Blister With [...] One tablet by mouth daily LEVOTHYROXINE SODIUM [id number] Suly Yoder RN Lidocaine (13 sources) Antiarrhythmic, [...] 2021 12:00am August 17, 2021 4:39pm nystatin 536713 unt/ml oral suspension (13 sources) Polyene Antifungal Start: 05-01-2021 End: 06-01-2021 take 099071 [IU] by mouth four times daily Nystatin 100,000 unit/mL Suspension Discontinued 724885 U PO 4 TIMES DAILY 140 7 [...] tablet by mouth daily as needed TADALAFIL [id number] Suly Yoder RN ticagrelor 90 mg oral [...] disease (20 sources) Atherosclerotic heart disease of ruby coronary artery without angina pectoris; Translations: [Coronary [...] D 1,25 DIHY 8.9 pg/mL Abnormal 24.8-81.5 [facility] Comment on above: Result Comment: Perf ormed at: BN - [facility] [address] [id number] Customer Development Representative: Saundra Anderson MD, Phone: [phone] Performed By: #### L 501.4021, L506.0400, L501.9520, L100.0100, L503.7505, L500.2500 #### [facility] [address] [place], [place], [id number] Basic Metabolic Profile (BMP )on 02-12-2025 BUN Normal - [facility] Comment on above: Result Comment: Canc elled via OM: Order cancelled - Patient discharged Performed By: #### L 501.4021, L506.0400, L501.9520, L100.0100, L503.7505, L500.2500 #### [facility] [address] [place], [place], [address] [phone] BUN/CRE Normal - [facility] Comment on above: Result Comment: Canc elled via OM: Order cancelled - Patient discharged Performed By: #### L 501.4021, L506.0400, L501.9520, L100.0100, L503.7505, L500.2500 #### [facility] [address] [place], [address] Calcium Normal 7.6-11.0 [facility] Comment on above: Result Comment: Canc elled via OM: Order cancelled - Patient discharged Performed By: #### L 501.4021, L506.0400, L501.9520, L100.0100, L503.7505, L500.2500 #### [facility] [address] [place], [address] CL Normal 98-108 [facility] Comment on above: Result Comment: Canc elled via OM: Order cancelled - Patient discharged Performed By: #### L 501.4021, L506.0400, L501.9520, L100.0100, L503.7505, L500.2500 #### [facility] [address] [place], [address] CO2 Normal 21.0-32.0 [facility] Comment on above: Result Comment: Canc elled via OM: Order cancelled - Patient discharged Performed By: #### L 501.4021, L506.0400, L501.9520, L100.0100, L503.7505, L500.2500 #### [facility] [address] [place], [address] CREAT,SERUM Normal 0.70-1.20 [facility] Comment on above: Result Comment: Canc elled via OM: Order cancelled - Patient discharged Performed By: #### L 501.4021, L506.0400, L501.9520, L100.0100, L503.7505, L500.2500 #### [facility] [address] [place], [address] eGFR Normal >60 [facility] Comment on above: Result Comment: Canc elled via OM: Order cancelled - Patient discharged Performed By: #### L 501.4021, L506.0400, L501.9520, L100.0100, L503.7505, L500.2500 #### [facility] [address] [place], [address] GAP Normal 5-15 [facility] Comment on above: Result Comment: Canc elled via OM: Order cancelled - Patient discharged Performed By: #### L 501.4021, L506.0400, L501.9520, L100.0100, L503.7505, L500.2500 #### [facility] [address] [place], [address] GLU Normal 70-99 [facility] Comment on above: Result Comment: Canc elled via OM: Order cancelled - Patient discharged Performed By: #### L 501.4021, L506.0400, L501.9520, L100.0100, L503.7505, L500.2500 #### [facility] [address] [place], [address] Potassium Normal 3.3-5.1 [facility] Comment on above: Result Comment: Canc elled via OM: Order cancelled - Patient discharged Performed By: #### L 501.4021, L506.0400, L501.9520, L100.0100, L503.7505, L500.2500 #### [facility] [address] [place], [address] Basic Metabolic Profile (BMP) Normal 133-145 [facility] Comment on above: Result Comment: Canc elled via OM: Order cancelled - Patient discharged Performed By: #### L 501.4021, L506.0400, L501.9520, L100.0100, L503.7505, L500.2500 #### [facility] [address] [place], [address] CBC W/Diff, Automatedon 03-2 Absolute Neut Normal 2.0-7.7 [facility] Comment on above: Result Comment: Canc elled via OM: Order cancelled - Patient discharged Performed By: #### L 501.4021, L506.0400, L501.9520, L100.0100, L503.7505, L500.2500 #### [facility] [address] [place], [address] HCT Normal 40-54 [facility] Comment on above: Result Comment: Canc elled via OM: Order cancelled - Patient discharged Performed By: #### L 501.4021, L506.0400, L501.9520, L100.0100, L503.7505, L500.2500 #### [facility] [address] [place], [address] HGB Normal 13.0-16.5 [facility] Comment on above: Result Comment: Canc elled via OM: Order cancelled - Patient discharged Performed By: #### L 501.4021, L506.0400, L501.9520, L100.0100, L503.7505, L500.2500 #### [facility] [address] [place], [address] MCH Normal 27.0-32.0 [facility] Comment on above: Result Comment: Canc elled via OM: Order cancelled - Patient discharged Performed By: #### L 501.4021, L506.0400, L501.9520, L100.0100, L503.7505, L500.2500 #### [facility] [address] [place], [address] MCHC Normal 32-36 [facility] Comment on above: Result Comment: Canc elled via OM: Order cancelled - Patient discharged Performed By: #### L 501.4021, L506.0400, L501.9520, L100.0100, L503.7505, L500.2500 #### [facility] [address] [place], [address] MCV Normal 80-94 [facility] Comment on above: Result Comment: Canc elled via OM: Order cancelled - Patient discharged Performed By: #### L 501.4021, L506.0400, L501.9520, L100.0100, L503.7505, L500.2500 #### [facility] [address] [place], [address] NEUT% Normal 47-70 [facility] Comment on above: Result Comment: Canc elled via OM: Order cancelled - Patient discharged Performed By: #### L 501.4021, L506.0400, L501.9520, L100.0100, L503.7505, L500.2500 #### [facility] [address] [place], [address] PLT Normal 150-450 [facility] Comment on above: Result Comment: Canc elled via OM: Order cancelled - Patient discharged Performed By: #### L 501.4021, L506.0400, L501.9520, L100.0100, L503.7505, L500.2500 #### [facility] [address] [place], [address] RBC Normal 4.6-6.2 [facility] Comment on above: Result Comment: Canc elled via OM: Order cancelled - Patient discharged Performed By: #### L 501.4021, L506.0400, L501.9520, L100.0100, L503.7505, L500.2500 #### [facility] [address] [place], [address] RDW CV Normal 11.6-14.6 [facility] Comment on above: Result Comment: Canc elled via OM: Order cancelled - Patient discharged Performed By: #### L 501.4021, L506.0400, L501.9520, L100.0100, L503.7505, L500.2500 #### [facility] [address] [place], [address] RDW SD Normal 35.1-43.9 [facility] Comment on above: Result Comment: Canc elled via OM: Order cancelled - Patient discharged Performed By: #### L 501.4021, L506.0400, L501.9520, L100.0100, L503.7505, L500.2500 #### [facility] [address] [place], [address] WBC Normal 4.4-11.0 [facility] Comment on above: Result Comment: Canc elled via OM: Order cancelled - Patient discharged Performed By: #### L 501.4021, L506.0400, L501.9520, L100.0100, L503.7505, L500.2500 #### [facility] [address] [place], [address] Alcohol, Blood (Medical)-Ser umon 02-11-2025 SERUM ETOH < 10.1 Normal <=10.0 [facility] Comment on above: Result Comment: This test is for medical purposes only. The legal definition of intoxication varies according to local law. Performed By: #### L 501.4020 #### [facility] [address] [facility] [place], [address] Amphetamines Screen method > 1000 ng/mL Ql (U)Ordered By: Mitchell Lucero on 02-11-2025 Amphetamines Ql (U) Negative <1000 ng/mL [facility] Urine Barbiturates Screen Negative < 200 ng/mL [facility] Bedside Glucoseon 02-11-2025 FINGERSTICK GLU 339 mg/dL High 74-106 [facility] Comment on above: Result Comment: CARLOS GEMENT OF PATIENT CARE PER NURSING PROTOCOL Performed By: #### L 501.4021, L506.0400, L501.9520, L100.0100, L503.7505, L500.2500 #### [facility] [address] [place], [address] FINGERSTICK GLU 435 mg/dL High 74-106 [facility] Comment on above: Result Comment: CARLOS MAYFIELDLEILA OF PATIENT CARE PER NURSING PROTOCOL Performed By: #### L 501.4021, L506.0400, L501.9520, L100.0100, L503.7505, L500.2500 #### [facility] [address] [place], [address] Brain W/WO Contraston 2024 Brain W/WO Contrast [facility] Imaging Services [address] [place] [address] Brain W/WO Contrast MR#: [id number] Acct: [id number] Name: LATONYA ELDER Rep #: [id number] : 1970 M 54 From: Mitchell Torrez PCP: Dr. Beka Bowie MD Status: DIS IN Study: Brain W/WO Contrast Date of Exam: 02/11/25 Exam# [id number] Ordering Dr: Mitchell Deras DO ADDENDUM by Dr. Mitchell King MD on 03/02/25 at 1035 Dose: 20 mL Clariscan intravenous. Reading Location: [id number] 03/02/25 1035 Date cc: Dr. Mitchell Deras [...] in the CT of 02/11/2025. Reading Location: [address] CC: Dr. Mitchell Deras DO; Dr. Beka Bowie MD Talent Acquisition Assistant: Signed Normal [facility] Calculated very low density lipoprotein (VLDL) cholesterol measurementOrdered By: Mitchell Lucero on 02-11-2025 VLDL Cholesterol 15 mg/dL 5-40 [facility] Carotid Duplex Ultrasoundon 02-11-2025 Carotid Duplex Ultrasound [facility] [address] [facility] [place] [address] Carotid Duplex Ultrasound 02/11/25 0817 MR#: [id number] Acct: [id number] Name: LAOTNYA ELDER Rep #: [id number] : 1970 54 From: Brennon Coronado MD [...] the left vertebral artery. Procedure Carotid Duplex 14137. This is a Carotid Duplex examination using [...] Dictated: 02/11/25 0817 Date Transcribed: 02/11/25 1526 Talent Acquisition Assistant: Signed Normal [facility] Echo Complete W/ Contraston 02-11-2025 Echo Complete W/ Contrast [facility] [address] [place] [address] Echo Complete W/ Contrast 02/11/25 0953 MR#: [id number] Acct: [id number] Name: LATONYA ELDER Rep #: [id number] : 1970 54 From: Eric Flores MD [...] Date Dictated: 02/11/25952 Date Transcribed: 02/11/25 1125 Talent Acquisition Assistant: S (more content not included)... Normal [facility] Echocardiogram study reportO rdered By: Eric Flores on 02-11-2025 Study report [facility] [place] [address] Echo Complete W/ Contrast 02/11/2553 MR#: [id number] Acct: [id number] Name: LATONYA ELDER Rep #:[id number] : 1970 54 From: Eric Torrez Attending [...] Dictated: 02/11/25 0953 Date Transcribed: 02/11/25 1125 Talent Acquisition Assistant: Signed [facility] Work Phone: Electrocardiogram reportOrde red By: Eric Flores on 02-11-2025 EKG study [facility] Cardiovascular Services [address] [place] [address] 12 Lead EKG 02/10/25 1808 MR#: [id number] Acct: [id number] Name: LATONYA ELDER Rep #:[id number] : 1970 54 From: Eric Flores MD [...] Abnormal ECG Confirmed by SANDRA EVANGELISTA, ERIC ([id number]), editor & co founder TESS PERRY ([id number]) on 02/11/2025 8:32:04 AM Referred By: Confirmed By: ERIC FLORES MD 02/11/25 0832 Date _ Eric Flores MD CC: Dr. Beka Bowie MD; Dr. Brennon Juarez DO; Dr. Jasbir Curry DO ~ Signed [facility] Work Phone: Ethanol [Mass/Vol]Ordered By : Mitchell Lucero on 02-11-2025 Ethyl Alcohol Level < 10.1 mg/dL <10.1 [facility] Comment on above: This test is for med ical purposes only. The legal definition of intoxication varies according to local law. FOLATES,SERUM (FOLIC ACID)on 02-11-2025 FOLATES,SERUM 7.12 ng/mL Normal 4.60-34.80 [facility] Comment on above: Result Comment: Hemo lysis, Results will be affected, Requires Recollection. Performed By: #### L 501.4020 #### [facility] [address] [place], [place], [address] Folate [Mass/Vol]Ordered By: Mitchell Lucero on 02-11-2025 Serum Folate 7.12 ng/mL 4.60-34.80 [facility] Comment on above: Hemolysis, Results w ill be affected, Requires Recollection. Glucose measurement at [facility] deOrdered By: Brennon Juarez on 02-11-2025 Bedside Glucose (Misc Panel) 339 mg/dL High 74-106 [facility] Comment on above: MANAGEMENT OF PATIEN T CARE PER NURSING PROTOCOL Hemoglobin A1con 02-11-2025 HbA1c (Bld) [Mass fraction] 10.8 % Normal <=5.6 [facility] Comment on above: Performed By: #### L 501.4020 #### [facility] [address] [place], [address] Hemoglobin A1c percentageOrd ered By: Mitchell Lucero on 02-11-2025 HbA1c (Bld) [Mass fraction] 10.8 % >5.7 [facility] L. pneumophila Ag Ql (U)Orde red By: Brennon Juarez on 02-11-2025 Legionella Antigen [facility] L503.0106on 02-11-2025 Cobalamin (Vitamin B12) [Mass/Vol] 573 pg/mL Normal 180-914 [facility] Comment on above: Performed By: #### L 501.4021, L506.0400, L501.9520, L100.0100, L503.7505, L500.2500 #### [facility] [address], [address] LDL calc ser/plasOrdered By: Mitchell Lucero on 02-11-2025 LDL Cholesterol, Calculated 160 mg/dL [facility] Comment on above: Ugljjemufo=489-119 m g/dL & Higher Xlob=692 mg/dL or greater Legionella Antigen Urineon 0 02-11-2025 LEGU URINE, RANDOM Legionella Antigen result interpretation: L pneumo Ag Ur Ql Negative Presumptive negative for Legionella pneumophila serogroup 1 antigen in urine, suggesting no recent or current infection. Legionella Ag, Urine Negative (See interpretation below) Normal [facility] Comment on above: Performed By: #### L 503.6005, L300.3900, L501.5425, L100.0100, L500.2500, L300.4310, L503.6620 #### [facility] [address] [place], [address] Lipid Profileon 02-11-2025 CHOL:HDL 5.44 Normal [facility] Comment on above: Order Comment: Comme nts: NPO at [place] prior to lipid panel Performed By: #### L 501.4021, L506.0400, L501.9520, L100.0100, L503.7505, L500.2500 #### [facility] [address] [place], [address] Cholesterol [Mass/Vol] 215 mg/dL High <=200 [facility] Comment on above: Order Comment: Comme nts: NPO at [place] prior to lipid panel Result Comment: Chol esterol level, Desirable <200 mg/dL Borderline high cholesterol 200-239 mg/dL High cholesterol >=240 mg/dL Recommendations of the NCEP Adult Treatment Panel for the following risk-cutoff thresholds for the [place] population. Performed By: #### L 501.4021, L506.0400, L501.9520, L100.0100, L503.7505, L500.2500 #### [facility] [address] [place], [address] Cholesterol in HDL [Mass/Vol] 40 mg/dL Normal [facility] Comment on above: Order Comment: Comme nts: [...] 501.4021, L506.0400, L501.9520, L100.0100, L503.7505, L500.2500 #### [facility] [address] [place], [address] Cholesterol in LDL [Mass/Vol] 160 mg/dL Normal [facility] Comment on above: Order Comment: Comme nts: NPO at [place] prior to lipid panel Result Comment: Bord zvdkgi=850-606 mg/dL Higher Gkyd=275 mg/dL or greater Performed By: #### L 501.4021, L506.0400, L501.9520, L100.0100, L503.7505, L500.2500 #### [facility] [address] [place], [address] Cholesterol in VLDL [Mass/Vol] 15 mg/dL Normal 5-40 [facility] Comment on above: Order Comment: Comme nts: NPO at [place] prior to lipid panel Performed By: #### L 501.4021, L506.0400, L501.9520, L100.0100, L503.7505, L500.2500 #### [facility] [address] [place], [address] Triglyceride [Mass/Vol] 76 mg/dL Normal [facility] Comment on above: Order Comment: Comme nts: NPO at [place] prior to lipid panel Result Comment: The drugs N-Acetylcysteine and Metamizole may falsely depress this assay. Normal range: <150 mg/dL Borderline High: 150-199 mg/dL High: 200-499 mg/dL Very High: >500 mg/dL Performed By: #### L 501.4021, L506.0400, L501.9520, L100.0100, L503.7505, L500.2500 #### [facility] [address] [place], [address] MR/CON.PCM.NEon 02-11-2025 MR/CON.PCM.NE [facility] Medical Records Department [address] [place] [address] Consultation - Neurology 02/11/25 1248 MR#: [id number] Acct: [id number] Name: LATONYA ELDER Rep #: [id number] : 1970 54 From: Eduardo Deal MD PCP: Dr. Beka Bowie MD Status:DIS IN Location: ICU [id number] Assessment and Plan: Neuro Assessment/Plan 54 y/o man with h/o HTN, DLD, obesity, DM, CAD s/p stent and NSTEMI on plavix and ASA, b/l LE DVT not on AC p/w confusion for the last 2 days. He denies aphasia and just reports confusion. He reported that his symptoms have been chirzf-cso-dstjvf for the past several days and since [...] up TTE and workup for chest pain. 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 [facility] Medical History History of DVT (deep vein [...] elevation myocardial infarction (NSTEMI) (11/22/20) Atherosclerosis of ruby coronary artery of ruby heart without angina pectoris Non-ST elevation AR (NSTEMI) Home Medications ???Medication ???Instructions ???Recorded ???Last [...] chest 0 (more content not included)... Normal [facility] Magnetic resonance imaging r eportOrdered By: Mitchell King on 02-11-2025 Study report [facility] Imaging Services [address] [place] [address] Brain W/WO Contrast MR#: [id number] Acct: [id number] Name: LATONYA ELDER Rep #: [id number] : 1970 M 54 From: Fabien King MD PCP: Dr. Beka Bowie MD Status: A DM IN Study:Brain W/WO Contrast Date of Exam: 02/11/25 Exam# [id number] Ordering Dr: Mitchell King DO EXAM: MRI [...] in the CT of 02/11/2025. Reading Location: [address] CC: Dr. Mitchell Deras DO; Dr. Beka Bowie MD ~ Talent Acquisition Assistant: Signed [facility] Methadone, urineOrdered By: Mitchell Lucero on 02-11-2025 Urine Methadone Screen Negative < 300 ng/mL [facility] No Panel InformationOrdered By: Mitchell Lucero on 02-11-2025 Urine Buprenorphine Qualitative Negative < 200 ng/mL [facility] Urine Oxycodone Screen Negative < 100 ng/mL [facility] Quantitative urine opiates m easurementOrdered By: Mitchell Lucero on 02-11-2025 Opiates Ql (U) Negative < 300 ng/mL [facility] Screening total cholesterol/ high density lipoprotein (HDL) cholesterol ratioOrdered By: Mitchell Lucero on 02-11-2025 Cholesterol.total/Choles terol in HDL [Mass ratio] 5.44 {ratio} [facility] Serum or plasma cholesterol in HDL measurement (mass/volume)Ordered By: Mitchell Lucero on 02-11-2025 Cholesterol in HDL [Mass/Vol] 40 mg/dL >40 [facility] Comment on above: National Cholesterol Education Program (NCEP) guidelines:<40 mg/dL: Low HDL-cholesterol (major risk factor for CHD)>= 60 mg/dL: High HDL-cholesterol (negative risk factor for CHD)HDL-cholesterol is affected by a number of factors, e.g. smoking, exercise, hormones, sex and age. Serum or plasma cholesterol measurement (mass/volume)Ordered By: Mitchell Lucero on 02-11-2025 Cholesterol [Mass/Vol] 215 mg/dL High <201 [facility] Comment on above: Cholesterol level, D esirable <200 mg/dLBorderline high cholesterol 200-239 mg/dLHigh cholesterol >=240 mg/dLRecommendations of the NCEP Adult Treatment Panel for the following risk-cutoff thresholds for the [place] population. Strep pneumoniae Antig(UR,CS F)on 02-11-2025 STPAG URINE INTERPRETATION Strep pneumoniae Antig(UR,CSF) Strep pneumoniae Antig(UR,CSF) Negative Urine Presumptive negative for pneumococcal pneumonia, suggesting no current or recent pneumococcal infection. Infection due to S pneumoniae cannot be ruled out since the antigen present in the sample may be below the detection limit of the test. Strep pneumo Test Negative URINE (See interpretation below) Normal [facility] Comment on above: Performed By: #### L 503.6005, L300.3900, L501.5425, L100.0100, L500.2500, L300.4310, L503.6620 #### [facility] [address] [facility], [address] Streptococcus pneumoniae ant igen assayOrdered By: Brennon Juarez on 02-11-2025 Streptococcus pneumoniae Antigen (M [facility] TSH DL <= 0.005 mIU/L QnOrde red By: Mitchell Lucero on 02-11-2025 Thyroid Stimulating Hormone (TSH) 0.973 uIU/mL 0.300-4.200 [facility] Thyroid Stim Hormone (TSH)on 02-11-2025 TSH 0.973 uIU/mL Normal 0.300-4.200 [facility] Comment on above: Performed By: #### L 501.4021, L506.0400, L501.9520, L100.0100, L503.7505, L500.2500 #### [facility] [address] [facility] [place], [address] Triglycerides measurementOrd ered By: Mitchell Luecro on 02-11-2025 Triglyceride [Mass/Vol] 76 mg/dL <199 [facility] Comment on above: The drugs N-Acetylcy steine and Metamizole may falsely depress this assay. Normal range: <150 mg/dLBorderline High: 150-199 mg/dLHigh: 200-499 mg/dLVery High: >500 mg/dL Urine Drug Screen (VISTA)on 02-11-2025 AMPHETAMINES Negative Normal <1000 ng/mL [facility] Comment on above: Performed By: #### L 501.4021, L506.0400, L501.9520, L100.0100, L503.7505, L500.2500 #### [facility] [address] [place], [address] BARBITIURATES Negative Normal < 200 ng/mL [facility] Comment on above: Performed By: #### L 501.4021, L506.0400, L501.9520, L100.0100, L503.7505, L500.2500 #### [facility] [address] [place], [address] BENZODIAZIPINE Negative Normal < 200 ng/mL [facility] Comment on above: Performed By: #### L 501.4021, L506.0400, L501.9520, L100.0100, L503.7505, L500.2500 #### [facility] [address] [place], [address] BUP Ur Drug Scr Negative Normal < 200 ng/mL [facility] Comment on above: Performed By: #### L 501.4021, L506.0400, L501.9520, L100.0100, L503.7505, L500.2500 #### [facility] [address] [place], [address] COCAINE Negative Normal < 300 ng/mL [facility] Comment on above: Performed By: #### L 501.4021, L506.0400, L501.9520, L100.0100, L503.7505, L500.2500 #### [facility] [address] [place], [address] Fentanyl Negative Normal [facility] Comment on above: Performed By: #### L 501.4021, L506.0400, L501.9520, L100.0100, L503.7505, L500.2500 #### [facility] [address] [place], [address] METHADONE Negative Normal < 300 ng/mL [facility] Comment on above: Performed By: #### L 501.4021, L506.0400, L501.9520, L100.0100, L503.7505, L500.2500 #### [facility] [address] [place], [address] OPIATES Negative Normal < 300 ng/mL [facility] Comment on above: Performed By: #### L 501.4021, L506.0400, L501.9520, L100.0100, L503.7505, L500.2500 #### [facility] [address] [place], [address] OXYCODONE Negative Normal < 100 ng/mL [facility] Comment on above: Performed By: #### L 501.4021, L506.0400, L501.9520, L100.0100, L503.7505, L500.2500 #### [facility] [address] [place], [address] PCP Negative Normal < 25 ng/mL [facility] Comment on above: Performed By: #### L 501.4021, L506.0400, L501.9520, L100.0100, L503.7505, L500.2500 #### [facility] [address] [place], [address] THC Negative Normal < 50 ng/mL [facility] Comment on above: Performed By: #### L 501.4021, L506.0400, L501.9520, L100.0100, L503.7505, L500.2500 #### [facility] [address] [place], [address] Urine benzodiazepine levelOr dered By: Mitchell Lucero on 02-11-2025 Benzodiazepines Ql (U) Negative < 200 ng/mL [facility] Urine cocaine levelOrdered B y: Mitchell Lucero on 02-11-2025 Cocaine Ql (U) Negative < 300 ng/mL [facility] Urine flhdo-3-gaphmrsbqwjtil abinol (THC) measurementOrdered By: Mitchell Lucero on 02-11-2025 Cannabinoids Screen Ql (U) Negative < 50 ng/mL [facility] Urine phencyclidine (PCP) de tectionOrdered By: Mitchell Lucero on 02-11-2025 Phencyclidine Ql (U) Negative < 25 ng/mL [facility] Vitamin B12 ser/plasOrdered By: Mitchell Lucero on 02-11-2025 Cobalamin (Vitamin B12) [Mass/Vol] 573 pg/mL 180-914 [facility] fentaNYL Screen Ql (U)Ordere d By: Mitchell Lucero on 02-11-2025 Urine Fentanyl Screen Negative [facility] 12 Lead EKGon 02-10-2025 12 Lead EKG [facility] Cardiovascular Services [address] [place] [address] 12 Lead EKG 02/10/25 1808 MR#: [id number] Acct: [id number] Name: LATONYA ELDER Rep #: [id number] : 1970 54 From: Eric Flores MD [...] Abnormal ECG Confirmed by ERIC FLORES MD ([id number]), editor & co founder TESS PERRY ([id number]) on 02/11/2025 8:32:04 AM Referred By: Confirmed By: ERIC FLORES MD 02/11/25 0832 Date Eric Flores MD CC: Dr. Beka Bowie MD; Dr. Brennon Juarez DO; Dr. Jasbir Curry DO Signed Normal [facility] Absolute neutrophil countOrd ered By: Jasbir Curry on 02-10-2025 Neutrophils (Bld) [#/Vol] 5.8 10*3/uL 2.0-7.7 [facility] Anion gap in Serum or Plasma Ordered By: Jasbir Curry on 02-10-2025 Anion gap [Moles/Vol] 12 mmol/L 5-15 [facility] BUN/creatinine ratioOrdered By: Jasbir Curry on 02-10-2025 Urea nitrogen/Creatinine [Mass ratio] 22.0 mg/mg High - [facility] Base excess Calc (BldV) [Mol es/Vol]Ordered By: Jasbir Curry on 02-10-2025 Venous Blood Base Excess 3 mmol/L -1.0-3.5 [facility] Basic Metabolic Profile (BMP )on 02-10-2025 BUN/CRE 22.0 RATIO High 10- [facility] Comment on above: Performed By: #### L 501.4021, L506.0400, L501.9520, L100.0100, L503.7505, L500.2500 #### [facility] [address] [place], [address] Calcium [Mass/Vol] 9.1 mg/dL Normal 7.6-11.0 [facility] Comment on above: Performed By: #### L 501.4021, L506.0400, L501.9520, L100.0100, L503.7505, L500.2500 #### [facility] [address] [place], [address] Chloride [Moles/Vol] 102 mmol/L Normal 98-108 [facility] Comment on above: Performed By: #### L 501.4021, L506.0400, L501.9520, L100.0100, L503.7505, L500.2500 #### [facility] [address] [place], [address] CO2 [Moles/Vol] 23.1 mmol/L Normal 21.0-32.0 [facility] Comment on above: Performed By: #### L 501.4021, L506.0400, L501.9520, L100.0100, L503.7505, L500.2500 #### [facility] [address] [place], [address] Creatinine [Mass/Vol] 1.09 mg/dL Normal 0.70-1.20 [facility] Comment on above: Performed By: #### L 501.4021, L506.0400, L501.9520, L100.0100, L503.7505, L500.2500 #### [facility] [address] [place], [address] ECRCL 93.49 ml/min Normal 50-250 [facility] Comment on above: Performed By: #### L 501.4021, L506.0400, L501.9520, L100.0100, L503.7505, L500.2500 #### [facility] [address] [place], [address] GAP 12 Normal 5-15 [facility] Comment on above: Performed By: #### L 501.4021, L506.0400, L501.9520, L100.0100, L503.7505, L500.2500 #### [facility] [address] [place], [address] GFR/1.73 sq M.predicted among non-blacks MDRD (S/P/Bld) [Vol rate/Area] 81 mL/min/{1.73_m2} Normal >60 [facility] Comment on above: Result Comment: mL/m in/1.73m2 CKD-EPI Creatinine Equation (2020) Performed By: #### L 501.4021, L506.0400, L501.9520, L100.0100, L503.7505, L500.2500 #### [facility] [address] [place], [address] Glucose [Mass/Vol] 255 mg/dL High 70-99 [facility] Comment on above: Performed By: #### L 501.4021, L506.0400, L501.9520, L100.0100, L503.7505, L500.2500 #### [facility] [address] [place], [address] Potassium [Moles/Vol] 4.3 mmol/L Normal 3.3-5.1 [facility] Comment on above: Result Comment: Hemo lysis present, Results??could be affected. ?? Performed By: #### L 501.4021, L506.0400, L501.9520, L100.0100, L503.7505, L500.2500 #### [facility] [address] [place], [address] Sodium [Moles/Vol] 137 mmol/L Normal 133-145 [facility] Comment on above: Performed By: #### L 501.4021, L506.0400, L501.9520, L100.0100, L503.7505, L500.2500 #### [facility] [address] [place], [address] Urea nitrogen [Mass/Vol] 24 mg/dL High 4-19 [facility] Comment on above: Performed By: #### L 501.4021, L506.0400, L501.9520, L100.0100, L503.7505, L500.2500 #### [facility] [address] [place], [address] Basophil percentageOrdered B y: Jasbir Curry on 02-10-2025 Basophils/100 WBC (Bld) 0.8 % 0-1 [facility] Bedside Glucoseon 02-10-2025 FINGERSTICK GLU 234 mg/dL High 74-106 [facility] Comment on above: Result Comment: CARLOS BONILLA OF PATIENT CARE PER NURSING PROTOCOL Performed By: #### L 501.4021, L506.0400, L501.9520, L100.0100, L503.7505, L500.2500 #### [facility] [address] [place], [address] CBC W/Diff, Automatedon 01-18 Absolute Lymph 2.41 X10 3/uL Normal 0.83-4.51 [facility] Comment on above: Performed By: #### L 501.4021, L506.0400, L501.9520, L100.0100, L503.7505, L500.2500 #### [facility] [address] [place], [address] Absolute Neut 5.8 X10 3/uL Normal 2.0-7.7 [facility] Comment on above: Performed By: #### L 501.4021, L506.0400, L501.9520, L100.0100, L503.7505, L500.2500 #### [facility] [address] [place], [address] Basophils/100 WBC (Bld) 0.8 % Normal 0-1 [facility] Comment on above: Performed By: #### L 501.4021, L506.0400, L501.9520, L100.0100, L503.7505, L500.2500 #### [facility] [address] [place], [address] Eosinophils/100 WBC (Bld) 2.4 % Normal 0-5 [facility] Comment on above: Performed By: #### L 501.4021, L506.0400, L501.9520, L100.0100, L503.7505, L500.2500 #### [facility] [address] [place], [address] Erythrocyte distribution width (RBC) [Ratio] 13.9 % Normal 11.6-14.6 [facility] Comment on above: Performed By: #### L 501.4021, L506.0400, L501.9520, L100.0100, L503.7505, L500.2500 #### [facility] [address] [place], [address] Hematocrit (Bld) [Volume fraction] 41.1 % Normal 40-54 [facility] Comment on above: Performed By: #### L 501.4021, L506.0400, L501.9520, L100.0100, L503.7505, L500.2500 #### [facility] [address] [place], [address] Hemoglobin (Bld) [Mass/Vol] 13.5 g/dL Normal 13.0-16.5 [facility] Comment on above: Performed By: #### L 501.4021, L506.0400, L501.9520, L100.0100, L503.7505, L500.2500 #### [facility] [address] [place], [address] IG% 0.300 Normal 0.0-0.9 [facility] Comment on above: Result Comment: IG% - Immature Granulocytes (promyelocytes, myelocytes and metamyelocytes) > 1% indicates that a LEFT SHIFT is Present. Performed By: #### L 501.4021, L506.0400, L501.9520, L100.0100, L503.7505, L500.2500 #### [facility] [address] [place], [address] Lymphocytes/100 WBC (Bld) 25.5 % Normal 19-41 [facility] Comment on above: Performed By: #### L 501.4021, L506.0400, L501.9520, L100.0100, L503.7505, L500.2500 #### [facility] [address] [place], [address] MCH (RBC) [Entitic mass] 27.4 pg Normal 27.0-32.0 [facility] Comment on above: Performed By: #### L 501.4021, L506.0400, L501.9520, L100.0100, L503.7505, L500.2500 #### [facility] [address] [place], [address] MCHC (RBC) [Mass/Vol] 32.8 g/dL Normal 32-36 [facility] Comment on above: Performed By: #### L 501.4021, L506.0400, L501.9520, L100.0100, L503.7505, L500.2500 #### [facility] [address] [place], [address] MCV (RBC) [Entitic vol] 83.5 fL Normal 80-94 [facility] Comment on above: Performed By: #### L 501.4021, L506.0400, L501.9520, L100.0100, L503.7505, L500.2500 #### [facility] [address] [place], [address] Monocytes/100 WBC (Bld) 9.2 % Normal 0-10 [facility] Comment on above: Performed By: #### L 501.4021, L506.0400, L501.9520, L100.0100, L503.7505, L500.2500 #### [facility] [address] [place], [address] Neutrophils/100 WBC (Bld) 61.8 % Normal 47-70 [facility] Comment on above: Performed By: #### L 501.4021, L506.0400, L501.9520, L100.0100, L503.7505, L500.2500 #### [facility] [address] [place], [address] Nucleated RBC (Bld) [#/Vol] 0 10*3/uL Normal 0-5 [facility] Comment on above: Performed By: #### L 501.4021, L506.0400, L501.9520, L100.0100, L503.7505, L500.2500 #### [facility] [address] [place], [address] Platelet mean volume (Bld) [Entitic vol] 10.6 fL Normal 6.2-12.0 [facility] Comment on above: Performed By: #### L 501.4021, L506.0400, L501.9520, L100.0100, L503.7505, L500.2500 #### [facility] [address] [place], [address] Platelets (Bld) [#/Vol] 317 10*3/uL Normal 150-450 [facility] Comment on above: Performed By: #### L 501.4021, L506.0400, L501.9520, L100.0100, L503.7505, L500.2500 #### [facility] [address] [place], [address] RBC (Bld) [#/Vol] 4.92 10*6/uL Normal 4.6-6.2 [facility] Comment on above: Performed By: #### L 501.4021, L506.0400, L501.9520, L100.0100, L503.7505, L500.2500 #### [facility] [address] [place], [address] RDW SD 42.5 fl Normal 35.1-43.9 [facility] Comment on above: Performed By: #### L 501.4021, L506.0400, L501.9520, L100.0100, L503.7505, L500.2500 #### [facility] [address] [place], [address] WBC (Bld) [#/Vol] 9.4 10*3/uL Normal 4.4-11.0 [facility] Comment on above: Performed By: #### L 501.4021, L506.0400, L501.9520, L100.0100, L503.7505, L500.2500 #### [facility] [address] [place], [address] CO2 (BldV) [Moles/Vol]Ordere d By: Jasbir Curry on 02-10-2025 CO2 [Moles/Vol] 30 mmol/L 23-33 [facility] CO2 (BldV) [Partial pressure ]Ordered By: Jasbir Curry on 02-10-2025 Bed Mix Venous Bld PCO2 at Pat Temp 47.6 mmHg 41-51 [facility] Carbon dioxide, total [Moles /volume] in Central venous bloodOrdered By: Jasbir Curry on 02-10-2025 CO2 [Moles/Vol] 23.1 mmol/L 21.0-32.0 [facility] Chest PA and Lateralon 02-10 Chest PA and Lateral [facility] Imaging Services [address] [place] [address] Chest PA and Lateral MR#: [id number] Acct: [id number] Name: LATONYA ELDER Rep #: [id number] : 1970 M 54 From: Harvey Hassan i, MD PCP: Dr. Beka Bowie MD Status: REG ER Study: Chest PA and Lateral Date of Exam: 02/10/25 Exam# [id number] Ordering Dr: Jasbir Curry DO PROCEDURE: CHEST [...] are new since prior examination. Reading Location: [id number] CC: Dr. Beka Bowie MD; Dr. Jasbir Curry DO [employer] Assistant: Signed Normal [facility] Chloride assayOrdered By: Cheng Curry on 02-10-2025 Chloride [Moles/Vol] 102 mmol/L 98-108 [facility] Emergency Department Summary on 02-10-2025 Emergency Department Summary [facility] Medical Records Department [address] [place] [address] Emergency Department Summary 02/10/25 MR#: [id number] Acct: [id number] Name: LATONYA ELDER Rep #: [id number] : 1970 54 From: Jasbir Curry DO [...] his inhalers and other medications as prescribed [facility] Medical History History of DVT (deep [...] elevation myocardial infarction (NSTEMI) (11/22/20) Atherosclerosis of ruby coronary artery of ruby heart without angina pectoris Non-ST elevation AR (NSTEMI) Home Medications ???Medication ???Instructions ???Recorded ???Last [...] [facility] 25 [facility] 02/10/25 Rx tabs clonidine [...] Current every (more content not included)... Normal [facility] Eosinophil percentageOrdered By: Jasbir Curry on 02-10-2025 Eosinophils/100 WBC (Bld) 2.4 % 0-5 [facility] Erythrocyte distribution wid th ratioOrdered By: Jasbir Curry on 02-10-2025 Erythrocyte distribution width (RBC) [Ratio] 13.9 % 11.6-14.6 [facility] Erythrocyte distribution wid th standard deviationOrdered By: Jasbir Curry on 02-10-2025 Erythrocyte distribution width (RBC) [Entitic vol] 42.5 fL 35.1-43.9 [facility] Estimation of creatinine lauren aranceOrdered By: Jasbir Curry on 02-10-2025 Estimated Creatinine Clearance Calc 93.49 ml/min 50-250 [facility] GFR/1.73 sq M.predicted zachery g non-blacks MDRD (S/P/Bld) [Vol rate/Area]Ordered By: Jasbir Curry on 02-10-2025 Estimated GFR (MDRD) Non-Af Amer 81 >60 [facility] Comment on above: mL/min/1.73m2 CKD-EP I Creatinine Equation (2020) [facility]dered By: Jasbir Curry on 02-10-2025 Bedside Glucose (Misc Panel) 234 mg/dL High 74-106 [facility] Comment on above: MANAGEMENT OF PATIEN T CARE PER NURSING PROTOCOL H AND P Exam - Hospital[place] 02-10-2025 H&P Exam - Hospitalist [facility] Medical Records Department [address] [place] [address] H P Exam - Hospitalist 02/10/25 2311 MR#: [id number] Acct: [id number] Name: LATONYA ELDER Rep #: [id number] : 1970 54 From: Mitchell Deras DO PCP: Dr. Beka Bowie MD Status:ADM IN Location: ICU [id number] HPI - General General Date of Admission: [...] troponin and Respiratory Insufficiency who presents to [facility] ER complaining of who presents to [facility] ER complaining of slurred speech and brain fog since Saturday, February 08, 2025. Mr. Elder and his significant other reported that his symptoms have been hajqzi-tat-lxevuu for the past several days and since [...] is expected to extend beyond 2 midnights. [facility] Medical History History of DVT (deep vein thrombosis) Respiratory insufficiency Elevated troponin Acute bronchitis COPD exacerb (more content not included)... Normal [facility] Hematocrit Auto (Bld) [Volum e fraction]Ordered By: Jasbir Curry on 02-10-2025 Hematocrit (Bld) [Volume fraction] 41.1 % 40-54 [facility] Hemoglobin measurementOrdere d By: Jasbir Curry on 02-10-2025 Hemoglobin (Bld) [Mass/Vol] 13.5 g/dL 13.0-16.5 [facility] Immature granulocytes/100 WB C Auto (Bld)Ordered By: Jasbir Curry on 02-10-2025 Immature granulocytes/100 WBC (Bld) 0.300 % 0.0-0.9 [facility] Comment on above: IG% - Immature Granu locytes (promyelocytes, myelocytes and metamyelocytes) > 1% indicates that a LEFT SHIFT is Present. L499.0042on 02-10-2025 Trop T High Sen 24 ng/L High <=22 [facility] Comment on above: Performed By: #### L 501.4021, L506.0400, L501.9520, L100.0100, L503.7505, L500.2500 #### [facility] [address] [place], [address] L499.0043on 02-10-2025 Trop T High Sen Normal <=22 [facility] Comment on above: Result Comment: C[place] ellgardenia via OM: Ordered Performed By: #### L 501.4021, L506.0400, L501.9520, L100.0100, L503.7505, L500.2500 #### [facility] [address] [place], [address] L501.4021on 02-10-2025 Trop T High Sen 25 ng/L High <=22 [facility] Comment on above: Result Comment: Hemo lysis present, Results??could be affected. ?? Performed By: #### L 501.4021, L506.0400, L501.9520, L100.0100, L503.7505, L500.2500 #### [facility] [address] [place], [address] L503.7505on 02-10-2025 Natriuretic peptide B (Bld) [Mass/Vol] 709 pg/mL Normal <=900 [facility] Comment on above: Result Comment: Hear t Failure Unlikely: < 300 pg/mL Heart Failure Likely < 50 Years: > 450 pg/mL 50-75 Years: > 900 pg/mL >75 Years: > 1800 pg/mL Performed By: #### L 501.4021, L506.0400, L501.9520, L100.0100, L503.7505, L500.2500 #### [facility] [address] [place], [address] Laboratory - Chemistry and C hemistry - challengeOrdered By: Jasbir Curry on 02-10-2025 Natriuretic peptide B (Bld) [Mass/Vol] 709 pg/mL <900 [facility] Comment on above: Heart Failure Unlike ly: < 300 pg/mLHeart Failure Likely< 50 Years: > 450 pg/mL50-75 Years: > 900 pg/mL>75 Years: > 1800 pg/mL Lactic Acidon 02-10-2025 Lactate [Moles/Vol] 1.9 mmol/L Normal 0.0-2.0 [facility] Comment on above: Order Comment: Y Performed By: #### L 501.4021, L506.0400, L501.9520, L100.0100, L503.7505, L500.2500 #### [facility] [address] [place], [address] Lactic acid measurementOrder ed By: Jasbir Curry on 02-10-2025 Lactate [Moles/Vol] 1.9 mmol/L 0.0-2.0 [facility] Lymphocytes Auto (Unsp spec) [#/Vol]Ordered By: Jasbir Curry on 02-10-2025 Lymphocytes (Bld) [#/Vol] 2.41 10*3/uL 0.83-4.51 [facility] Lymphocytes/100 WBC Auto (Un sp spec)Ordered By: Jasbir Curry on 02-10-2025 Lymphocytes/100 WBC (Bld) 25.5 % 19-41 [facility] MCV (mean corpuscular volume ) determinationOrdered By: Jasbir Curry on 02-10-2025 MCV (RBC) [Entitic vol] 83.5 fL 80-94 [facility] Mean corpuscular hemoglobin (MCH) determinationOrdered By: Jasbir Curry on 02-10-2025 MCH (RBC) [Entitic mass] 27.4 pg 27.0-32.0 [facility] Mean corpuscular hemoglobin concentration (MCHC) determinationOrdered By: Jasbir Curry on 02-10-2025 MCHC (RBC) [Mass/Vol] 32.8 g/dL 32-36 [facility] Mean platelet volume determi nationOrdered By: Jasbir Curry on 02-10-2025 Platelet mean volume (Bld) [Entitic vol] 10.6 fL 6.2-12.0 [facility] Monocyte percentageOrdered B y: Jasbir Curry on 02-10-2025 Monocytes/100 WBC (Bld) 9.2 % 0-10 [facility] Neutrophil percentageOrdered By: Jasbir Curry on 02-10-2025 Neutrophils/100 WBC (Bld) 61.8 % 47-70 [facility] No Panel InformationOrdered By: Jasbir Curry on 02-10-2025 Blood Gas Sample Site Not entered [facility] Blood Gas Specimen Type TAMIKA [facility] Oxygen Delivery Device Room Air [facility] Troponin T High Sensitivity 25 ng/L High <22 [facility] Comment on above: Hemolysis present, R esults could be affected. Nucleated red blood cell per centageOrdered By: Jasbir Curry on 02-10-2025 Nucleated RBC/100 WBC (Bld) [Ratio] 0 % 0-5 [facility] Oxygen (BldV) [Partial press ure]Ordered By: Jasbir Curry on 02-10-2025 Venous Blood Partial Pressure O2 52 mmHg High 25-40 [facility] Platelet countOrdered By: Cheng Curry on 02-10-2025 Platelets (Bld) [#/Vol] 317 10*3/uL 150-450 [facility] Potassium (Unsp spec) [Mass/ Vol]Ordered By: Jasbir Curry on 02-10-2025 Potassium [Moles/Vol] 4.3 mmol/L 3.3-5.1 [facility] Comment on above: Hemolysis present, R esults could be affected. RBC Auto (Bld) [#/Vol]Ordere d By: Jasbir Curry on 02-10-2025 RBC (Bld) [#/Vol] 4.92 10*6/uL 4.6-6.2 [facility] STROKE Brain/Head without Co nton 02-10-2025 STROKE Brain/Head without Cont [facility] Imaging Services [address] [place] [address] STROKE Brain/Head without Cont MR#: [id number] Acct: [id number] Name: JAELLATONYA Matt Rep #: [id number] : 1970 M 54 From: Harvey Hassan i, MD PCP: Dr. Beka Bowie MD Status: REG ER Study: STROKE Brain/Head without Cont Date of Exam: 0 02/10/25 Exam# [id number] Ordering Dr: Jasbir Curry DO EXAM: CT [...] 8:00 pm with readback verification. Reading Location: [id number] CC: Dr. Beka Bowie MD; Dr. Jasbir Curry DO Talent Acquisition Assistant: Signed Normal [facility] STROKE CTA Head AND Neck W/C onon 02-10-2025 STROKE CTA Head AND Neck W/Con [facility] Imaging Services [address] [place] [id number] STROKE CTA Head AND Neck W/Con MR#: [id number] Acct: [id number] Name: LATONYA ELDER Rep #: [id number] : 1970 M 54 From: Elsy Das nd, MD PCP: Dr. Beka Bowie MD Status: REG ER Study: STROKE CTA Head AND Neck W/Con Date of Exam: 0 02/10/25 Exam# [id number] Ordering Dr: Jasbir Curry DO PROCEDURE: STROKE [...] caliber. There is origin of the right [employer]. The middle and posterior cerebral arteries are [...] Dr. Beka Bowie MD; Dr. Jasbir Curry, Talent Acquisition Assistant: Signed Normal [facility] Serum creatinine measurement (mass/volume)Ordered By: Jasbir Curry on 02-10-2025 Creatinine [Mass/Vol] 1.09 mg/dL 0.70-1.20 [facility] Serum glucose measurement (m ass/volume)Ordered By: Jasbir Curry on 02-10-2025 Glucose [Mass/Vol] 255 mg/dL High 70-99 [facility] Serum or plasma calcium jessica urement (mass/volume)Ordered By: Jasbir Curry on 02-10-2025 Calcium [Mass/Vol] 9.1 mg/dL 7.6-11.0 [facility] Serum or plasma urea nitroge n measurement (mass/volume)Ordered By: Jasbir Curry on 02-10-2025 Urea nitrogen [Mass/Vol] 24 mg/dL High 4-19 [facility] Sodium levelOrdered By: Trey Curry on 02-10-2025 Sodium [Moles/Vol] 137 mmol/L 133-145 [facility] T4 Free Directon 02-10-2025 T4 FREE DIRECT 1.20 ng/dL Normal 0.76-1.46 [facility] Comment on above: Performed By: #### L 501.4021, L506.0400, L501.9520, L100.0100, L503.7505, L500.2500 #### [facility] [address] [place], [address] T4 freeOrdered By: Jasbir jennings on 02-10-2025 Free T4 [Mass/Vol] 1.20 ng/dL 0.76-1.46 [facility] TSH DL <= 0.005 mIU/L QnOrde red By: Jasbir Curry on 02-10-2025 Thyroid Stimulating Hormone (TSH) 3.160 uIU/mL 0.300-4.200 [facility] Thyroid Stim Hormone (TSH)on 02-10-2025 TSH 3.160 uIU/mL Normal 0.300-4.200 [facility] Comment on above: Performed By: #### L 501.4021, L506.0400, L501.9520, L100.0100, L503.7505, L500.2500 #### [facility] [address] [place], [address] Troponin T.cardiac High sens itivity method [Mass/Vol]Ordered By: Jasbir Curry on 02-10-2025 Troponin T High Sensitivity 2 Hour 24 ng/L High <22 [facility] Venous Blood Gason Blood Gas Type TAMIKA Normal [facility] Comment on above: Performed By: #### L 501.4021, L506.0400, L501.9520, L100.0100, L503.7505, L500.2500 #### [facility] [address] [place], [address] CO2 [Moles/Vol] 30 mmol/L Normal 23-33 [facility] Comment on above: Performed By: #### L 501.4021, L506.0400, L501.9520, L100.0100, L503.7505, L500.2500 #### [facility] [address] [place], [address] HCO3 (Bld) [Moles/Vol] 28 mmol/L High 22-26 [facility] Comment on above: Performed By: #### L 501.4021, L506.0400, L501.9520, L100.0100, L503.7505, L500.2500 #### [facility] [address] [place], [address] O2 Delivery Dev Room Air Normal [facility] Comment on above: Performed By: #### L 501.4021, L506.0400, L501.9520, L100.0100, L503.7505, L500.2500 #### [facility] [address] [place], [address] SITE Not entered Normal [facility] Comment on above: Performed By: #### L 501.4021, L506.0400, L501.9520, L100.0100, L503.7505, L500.2500 #### [facility] [address] [place], [address] VBG BE 3 mmol/L Normal -1.0-3.5 [facility] Comment on above: Performed By: #### L 501.4021, L506.0400, L501.9520, L100.0100, L503.7505, L500.2500 #### [facility] [address] [place], [address] VBG pCO2 47.6 mmHg Normal 41-51 [facility] Comment on above: Performed By: #### L 501.4021, L506.0400, L501.9520, L100.0100, L503.7505, L500.2500 #### [facility] [address] [place], [address] VBG pH 7.38 Normal 7.32-7.42 [facility] Comment on above: Performed By: #### L 501.4021, L506.0400, L501.9520, L100.0100, L503.7505, L500.2500 #### [facility] [address] [place], [address] VBG PO2 52 mmHg High 25-40 [facility] Comment on above: Performed By: #### L 501.4021, L506.0400, L501.9520, L100.0100, L503.7505, L500.2500 #### [facility] [address] [place], [address] VBG SO2 85 High 50-70 [facility] Comment on above: Performed By: #### L 501.4021, L506.0400, L501.9520, L100.0100, L503.7505, L500.2500 #### [facility] [address] [place], [address] Venous blood bicarbonate adria surementOrdered By: Jasbir Curry on 02-10-2025 HCO3 (Bld) [Moles/Vol] 28 mmol/L High 22-26 [facility] Venous blood oxygen saturati on measurementOrdered By: Jasbir Curry on 02-10-2025 Oxygen saturation in Blood 85 % High 50-70 [facility] White blood cell (WBC) count Ordered By: Jasbir Curry on 02-10-2025 WBC (Bld) [#/Vol] 9.4 10*3/uL 4.4-11.0 [facility] pH (BldV)Ordered By: Jasbir thomas on 02-10-2025 Venous Blood pH 7.38 7.32-7.42 [facility] Vitamin D 1,25-Dihydroxyon 1 12-14-2023 VIT D 1,25 DIHY 45.5 pg/mL Normal 24.8-81.5 [facility] Comment on above: Result Comment: Perf ormed at: [facility] [id number] Customer Development Representative: Saundra Anderson MD, Phone: [phone] Performed By: #### L 501.4021, L506.0400, L501.9520, L100.0100, L503.7505, L500.2500 #### [facility] [address] [place], [address] Basic Metabolic Profile (BMP )on 10-13-2024 BUN/CRE 32.6 RATIO High 10-20 [facility] Comment on above: Performed By: #### L 501.4021, L506.0400, L501.9520, L100.0100, L503.7505, L500.2500 #### [facility] [address] [place], [address] CA,Total 8.9 mg/dL Normal 8.5-10.1 [facility] Comment on above: Performed By: #### L 501.4021, L506.0400, L501.9520, L100.0100, L503.7505, L500.2500 #### [facility] [address] [place], [address] Chloride [Moles/Vol] 105 mmol/L Normal 98-107 [facility] Comment on above: Performed By: #### L 501.4021, L506.0400, L501.9520, L100.0100, L503.7505, L500.2500 #### [facility] [address] [place], [address] CO2 [Moles/Vol] 26.0 mmol/L Normal 21.0-32.0 [facility] Comment on above: Performed By: #### L 501.4021, L506.0400, L501.9520, L100.0100, L503.7505, L500.2500 #### [facility] [address] [place], [address] Creatinine [Mass/Vol] 1.32 mg/dL High 0.70-1.30 [facility] Comment on above: Result Comment: The validity of the calculated GFR GFRAA in patients over 70 years has not been determined. Clinical correlation is essential. Performed By: #### L 501.4021, L506.0400, L501.9520, L100.0100, L503.7505, L500.2500 #### [facility] [address] [place], [address] ECRCL 78.14 ml/min Normal [facility] Comment on above: Performed By: #### L 501.4021, L506.0400, L501.9520, L100.0100, L503.7505, L500.2500 #### [facility] [address] [place], [address] EST GFR - AA 73 mL/min Normal >60 [facility] Comment on above: Result Comment: Afri can Russian GFR Calc Performed By: #### L 501.4021, L506.0400, L501.9520, L100.0100, L503.7505, L500.2500 #### [facility] [address] [place], [address] GAP 4 Low 5-15 [facility] Comment on above: Performed By: #### L 501.4021, L506.0400, L501.9520, L100.0100, L503.7505, L500.2500 #### [facility] [address] [place], [address] GFR/1.73 sq M.predicted among non-blacks MDRD (S/P/Bld) [Vol rate/Area] 60 mL/min/{1.73_m2} Normal >60 [facility] Comment on above: Result Comment: Non- GFR Calc Performed By: #### L 501.4021, L506.0400, L501.9520, L100.0100, L503.7505, L500.2500 #### [facility] [address] [place], [address] Glucose [Mass/Vol] 271 mg/dL High 74-106 [facility] Comment on above: Result Comment: Gluc ose result greater than or equal to 200 mg/dL suggests DIABETES MELLITUS per A.D.A. criteria. Performed By: #### L 501.4021, L506.0400, L501.9520, L100.0100, L503.7505, L500.2500 #### [facility] [address] [place], [address] Potassium [Moles/Vol] 4.6 mmol/L Normal 3.5-5.1 [facility] Comment on above: Result Comment: Slig ht Hemolysis, Result may be falsely increased. Performed By: #### L 501.4021, L506.0400, L501.9520, L100.0100, L503.7505, L500.2500 #### [facility] [address] [place], [address] Sodium [Moles/Vol] 135 mmol/L Low 136-145 [facility] Comment on above: Performed By: #### L 501.4021, L506.0400, L501.9520, L100.0100, L503.7505, L500.2500 #### [facility] [address] [place], [address] Urea nitrogen [Mass/Vol] 43 mg/dL High 7-18 [facility] Comment on above: Performed By: #### L 501.4021, L506.0400, L501.9520, L100.0100, L503.7505, L500.2500 #### [facility] [address] [place], [address] Bedside Glucoseon 10-13-2024 FINGERSTICK GLU 370 mg/dL High 74-106 [facility] Comment on above: Result Comment: CARLOS GEMENT OF PATIENT CARE PER NURSING PROTOCOL Performed By: #### L 501.4021, L506.0400, L501.9520, L100.0100, L503.7505, L500.2500 #### [facility] [address] [place], [address] FINGERSTICK GLU 262 mg/dL High 74-106 [facility] Comment on above: Result Comment: CARLOS GEMENT OF PATIENT CARE PER NURSING PROTOCOL Performed By: #### L 501.4021, L506.0400, L501.9520, L100.0100, L503.7505, L500.2500 #### [facility] [address] [place], [address] CBC W/Diff, Automatedon 11-2 5-2023 Absolute Lymph 1.69 X10 3/uL Normal 0.83-4.51 [facility] Comment on above: Performed By: #### L 501.4021, L506.0400, L501.9520, L100.0100, L503.7505, L500.2500 #### [facility] [address] [place], [address] Absolute Neut 17.9 X10 3/uL High 2.0-7.7 [facility] Comment on above: Performed By: #### L 501.4021, L506.0400, L501.9520, L100.0100, L503.7505, L500.2500 #### [facility] [address] [place], [address] Basophils/100 WBC (Bld) 0.1 % Normal 0-1 [facility] Comment on above: Performed By: #### L 501.4021, L506.0400, L501.9520, L100.0100, L503.7505, L500.2500 #### [facility] [address] [place], [address] Eosinophils/100 WBC (Bld) 0.0 % Normal 0-5 [facility] Comment on above: Performed By: #### L 501.4021, L506.0400, L501.9520, L100.0100, L503.7505, L500.2500 #### [facility] [address] [place], [address] Erythrocyte distribution width (RBC) [Ratio] 13.2 % Normal 11.6-14.6 [facility] Comment on above: Performed By: #### L 501.4021, L506.0400, L501.9520, L100.0100, L503.7505, L500.2500 #### [facility] [address] [place], [address] Hematocrit (Bld) [Volume fraction] 40.8 % Normal 40-54 [facility] Comment on above: Performed By: #### L 501.4021, L506.0400, L501.9520, L100.0100, L503.7505, L500.2500 #### [facility] [address] [place], [address] Hemoglobin (Bld) [Mass/Vol] 12.9 g/dL Low 13.0-16.5 [facility] Comment on above: Performed By: #### L 501.4021, L506.0400, L501.9520, L100.0100, L503.7505, L500.2500 #### [facility] [address] [place], [address] IG% 1.000 High 0.0-0.9 [facility] Comment on above: Result Comment: IG% - Immature Granulocytes (promyelocytes, myelocytes and metamyelocytes) > 1% indicates that a LEFT SHIFT is Present. Performed By: #### L 501.4021, L506.0400, L501.9520, L100.0100, L503.7505, L500.2500 #### [facility] [address] [place], [address] Lymphocytes/100 WBC (Bld) 8.3 % Low 19-41 [facility] Comment on above: Performed By: #### L 501.4021, L506.0400, L501.9520, L100.0100, L503.7505, L500.2500 #### [facility] [address] [place], [address] MCH (RBC) [Entitic mass] 27.7 pg Normal 27.0-32.0 [facility] Comment on above: Performed By: #### L 501.4021, L506.0400, L501.9520, L100.0100, L503.7505, L500.2500 #### [facility] [address], [address] MCHC (RBC) [Mass/Vol] 31.6 g/dL Low 32-36 [facility] Comment on above: Performed By: #### L 501.4021, L506.0400, L501.9520, L100.0100, L503.7505, L500.2500 #### [facility] [address] [place], [address] MCV (RBC) [Entitic vol] 87.6 fL Normal 80-94 [facility] Comment on above: Performed By: #### L 501.4021, L506.0400, L501.9520, L100.0100, L503.7505, L500.2500 #### [facility] [address] [place], [address] Monocytes/100 WBC (Bld) 3.0 % Normal 0-10 [facility] Comment on above: Performed By: #### L 501.4021, L506.0400, L501.9520, L100.0100, L503.7505, L500.2500 #### [facility] [address] [place], [address] Neutrophils/100 WBC (Bld) 87.6 % High 47-70 [facility] Comment on above: Performed By: #### L 501.4021, L506.0400, L501.9520, L100.0100, L503.7505, L500.2500 #### [facility] [address] [place], [address] Nucleated RBC (Bld) [#/Vol] 0 10*3/uL Normal 0-5 [facility] Comment on above: Performed By: #### L 501.4021, L506.0400, L501.9520, L100.0100, L503.7505, L500.2500 #### [facility] [address] [place], [address] Platelet mean volume (Bld) [Entitic vol] 10.9 fL Normal 6.2-12.0 [facility] Comment on above: Performed By: #### L 501.4021, L506.0400, L501.9520, L100.0100, L503.7505, L500.2500 #### [facility] [address] [place], [address] Platelets (Bld) [#/Vol] 375 10*3/uL Normal 150-450 [facility] Comment on above: Performed By: #### L 501.4021, L506.0400, L501.9520, L100.0100, L503.7505, L500.2500 #### [facility] [address] [place], [address] RBC (Bld) [#/Vol] 4.66 10*6/uL Normal 4.6-6.2 [facility] Comment on above: Performed By: #### L 501.4021, L506.0400, L501.9520, L100.0100, L503.7505, L500.2500 #### [facility] [address] [place], [address] RDW SD 42.4 fl Normal 35.1-43.9 [facility] Comment on above: Performed By: #### L 501.4021, L506.0400, L501.9520, L100.0100, L503.7505, L500.2500 #### [facility] [address] [place], [address] WBC (Bld) [#/Vol] 20.4 10*3/uL High 4.4-11.0 [facility] Comment on above: Performed By: #### L 501.4021, L506.0400, L501.9520, L100.0100, L503.7505, L500.2500 #### [facility] [address] [place], [address] Discharge Instructionon 09-20 Discharge Instruction [facility] Medical Records Department [address] [place] [address] Instructions for Home/Discharge Instructions 10/13/24 1303 MR#: [id number] Acct: [id number] Name: LATONYA ELDER Rep #: [id number] : 1970 54 From: Manuelito Green DO [...] Up: Mal Mcdonnell PA [Med Staff - [facility]] - 10/29/24 10:30 am 10/13/24 1332 Manuelito Green DO CC: Dr. Mitchell Deras DO; Dr. Beka Bowie MD; Dr. Nasim Leblanc MD Signed Normal [facility] Respiratory Cultureon 2023 RESPC SENT LABEL TO PCU FOR COLLECTION Mixed normal respiratory katya. No Haemophilus, Streptococcus pneumoniae, beta-hemolytic Streptococcus or Staphylococcus aureus isolated. [facility] Comment on above: Performed By: #### L 503.6005, L300.3900, L501.5425, L100.0100, L500.2500, L300.4310, L503.6620 #### [facility] [address] [facility] [place], [address] 12 Lead EKGon 10-12-2024 12 Lead EKG [facility] Cardiovascular Services [address] [place] [address] 12 Lead EKG 10/12/24 1446 MR#: [id number] Acct: [id number] Name: LATONYA ELDER Rep #: [id number] : 1970 54 From: Harvey Murphy MD Attending Dr: Dr. Manuelito Green DO Status: A DM IN Ordering Dr: Nasim Leblanc MD Date: 10/12/24 Location: [facility] Sex: M C Admitted: 10/11/24 Test [...] DATA IS UNCONFIRMED Confirmed by Harvey Murphy ([id number]), editor & co founder EVELIO CURRY ([id number]) on 10/13/2024 9:57:29 AM Referred By: Confirmed By: Harvey Murphy 10/13/24 0957 Date Harvey Murphy MD CC: Dr. Beka Bowie MD; Dr. Manuelito Green DO; Dr. Nasim Leblanc MD Signed Normal [facility] BNP,B-Type NATRIURETIC PEPTI [place] 10-12-2024 Natriuretic peptide B (Bld) [Mass/Vol] 148.6 pg/mL High 0-100 [facility] Comment on above: Performed By: #### L 501.4021, L506.0400, L501.9520, L100.0100, L503.7505, L500.2500 #### [facility] [address] [place], [address] Bedside Glucoseon 10-12-2024 FINGERSTICK GLU 197 mg/dL High 74-106 [facility] Comment on above: Result Comment: CARLOS GEMENT OF PATIENT CARE PER NURSING PROTOCOL Performed By: #### L 501.4021, L506.0400, L501.9520, L100.0100, L503.7505, L500.2500 #### [facility] [address] [place], [address] FINGERSTICK GLU 79 mg/dL Normal 74-106 [facility] Comment on above: Result Comment: CARLOS GEMENT OF PATIENT CARE PER NURSING PROTOCOL Performed By: #### L 501.4021, L506.0400, L501.9520, L100.0100, L503.7505, L500.2500 #### [facility] [address] [place], [address] FINGERSTICK GLU 229 mg/dL High 74-106 [facility] Comment on above: Result Comment: CARLOS GEMENT OF PATIENT CARE PER NURSING PROTOCOL Performed By: #### L 501.4021, L506.0400, L501.9520, L100.0100, L503.7505, L500.2500 #### [facility] [address] [place], [address] FINGERSTICK GLU 338 mg/dL High 74-106 [facility] Comment on above: Result Comment: CARLOS GEMENT OF PATIENT CARE PER NURSING PROTOCOL Performed By: #### L 501.4021, L506.0400, L501.9520, L100.0100, L503.7505, L500.2500 #### [facility] [address] [place], [address] FINGERSTICK GLU 448 mg/dL High 74-106 [facility] Comment on above: Result Comment: CARLOS GEMENT OF PATIENT CARE PER NURSING PROTOCOL Performed By: #### L 501.4021, L506.0400, L501.9520, L100.0100, L503.7505, L500.2500 #### [facility] [address] [place], [address] FINGERSTICK GLU 342 mg/dL High 74-106 [facility] Comment on above: Result Comment: CARLOS GEMENT OF PATIENT CARE PER NURSING PROTOCOL Performed By: #### L 501.4021, L506.0400, L501.9520, L100.0100, L503.7505, L500.2500 #### [facility] [address] [place], [address] CBC W/Diff, Automatedon 09-20 Absolute Lymph 1.49 X10 3/uL Normal 0.83-4.51 [facility] Comment on above: Performed By: #### L 501.4021, L506.0400, L501.9520, L100.0100, L503.7505, L500.2500 #### [facility] [address] [place], [address] Absolute Neut 12.0 X10 3/uL High 2.0-7.7 [facility] Comment on above: Performed By: #### L 501.4021, L506.0400, L501.9520, L100.0100, L503.7505, L500.2500 #### [facility] [address] [place], [address] Basophils/100 WBC (Bld) 0.0 % Normal 0-1 [facility] Comment on above: Performed By: #### L 501.4021, L506.0400, L501.9520, L100.0100, L503.7505, L500.2500 #### [facility] [address] [place], [address] Eosinophils/100 WBC (Bld) 0.0 % Normal 0-5 [facility] Comment on above: Performed By: #### L 501.4021, L506.0400, L501.9520, L100.0100, L503.7505, L500.2500 #### [facility] [address] [place], [address] Erythrocyte distribution width (RBC) [Ratio] 13.0 % Normal 11.6-14.6 [facility] Comment on above: Performed By: #### L 501.4021, L506.0400, L501.9520, L100.0100, L503.7505, L500.2500 #### [facility] [address] [place], [address] Hematocrit (Bld) [Volume fraction] 40.3 % Normal 40-54 [facility] Comment on above: Performed By: #### L 501.4021, L506.0400, L501.9520, L100.0100, L503.7505, L500.2500 #### [facility] [address] [place], [address] Hemoglobin (Bld) [Mass/Vol] 12.9 g/dL Low 13.0-16.5 [facility] Comment on above: Performed By: #### L 501.4021, L506.0400, L501.9520, L100.0100, L503.7505, L500.2500 #### [facility] [address] [place], [address] IG% 0.900 Normal 0.0-0.9 [facility] Comment on above: Result Comment: IG% - Immature Granulocytes (promyelocytes, myelocytes and metamyelocytes) > 1% indicates that a LEFT SHIFT is Present. Performed By: #### L 501.4021, L506.0400, L501.9520, L100.0100, L503.7505, L500.2500 #### [facility] [address] [place], [address] Lymphocytes/100 WBC (Bld) 10.6 % Low 19-41 [facility] Comment on above: Performed By: #### L 501.4021, L506.0400, L501.9520, L100.0100, L503.7505, L500.2500 #### [facility] [address] [place], [address] MCH (RBC) [Entitic mass] 27.6 pg Normal 27.0-32.0 [facility] Comment on above: Performed By: #### L 501.4021, L506.0400, L501.9520, L100.0100, L503.7505, L500.2500 #### [facility] [address] [place], [address] MCHC (RBC) [Mass/Vol] 32.0 g/dL Normal 32-36 [facility] Comment on above: Performed By: #### L 501.4021, L506.0400, L501.9520, L100.0100, L503.7505, L500.2500 #### [facility] [address] [place], [address] MCV (RBC) [Entitic vol] 86.1 fL Normal 80-94 [facility] Comment on above: Performed By: #### L 501.4021, L506.0400, L501.9520, L100.0100, L503.7505, L500.2500 #### [facility] [address] [place], [address] Monocytes/100 WBC (Bld) 3.6 % Normal 0-10 [facility] Comment on above: Performed By: #### L 501.4021, L506.0400, L501.9520, L100.0100, L503.7505, L500.2500 #### [facility] [address] [place], [address] Neutrophils/100 WBC (Bld) 84.9 % High 47-70 [facility] Comment on above: Performed By: #### L 501.4021, L506.0400, L501.9520, L100.0100, L503.7505, L500.2500 #### [facility] [address] [place], [address] Nucleated RBC (Bld) [#/Vol] 0 10*3/uL Normal 0-5 [facility] Comment on above: Performed By: #### L 501.4021, L506.0400, L501.9520, L100.0100, L503.7505, L500.2500 #### [facility] [address] [place], [address] Platelet mean volume (Bld) [Entitic vol] 11.1 fL Normal 6.2-12.0 [facility] Comment on above: Performed By: #### L 501.4021, L506.0400, L501.9520, L100.0100, L503.7505, L500.2500 #### [facility] [address] [place], [address] Platelets (Bld) [#/Vol] 378 10*3/uL Normal 150-450 [facility] Comment on above: Performed By: #### L 501.4021, L506.0400, L501.9520, L100.0100, L503.7505, L500.2500 #### [facility] [address] [place], [address] RBC (Bld) [#/Vol] 4.68 10*6/uL Normal 4.6-6.2 [facility] Comment on above: Performed By: #### L 501.4021, L506.0400, L501.9520, L100.0100, L503.7505, L500.2500 #### [facility] [address] [place], [address] RDW SD 40.6 fl Normal 35.1-43.9 [facility] Comment on above: Performed By: #### L 501.4021, L506.0400, L501.9520, L100.0100, L503.7505, L500.2500 #### [facility] [address] [place], [address] WBC (Bld) [#/Vol] 14.1 10*3/uL High 4.4-11.0 [facility] Comment on above: Performed By: #### L 501.4021, L506.0400, L501.9520, L100.0100, L503.7505, L500.2500 #### [facility] [address] [place], [address] Comprehensive Metabolic Prof ilon 10-12-2024 Albumin [Mass/Vol] 2.7 g/dL Low 3.2-5.0 [facility] Comment on above: Performed By: #### L 501.4021, L506.0400, L501.9520, L100.0100, L503.7505, L500.2500 #### [facility] [address] [place], [address] Albumin/Globulin [Mass ratio] 0.6 {ratio} Low 0.9-2.4 [facility] Comment on above: Performed By: #### L 501.4021, L506.0400, L501.9520, L100.0100, L503.7505, L500.2500 #### [facility] [address] [place], [address] ALK P 87 U/L Normal 45-117 [facility] Comment on above: Performed By: #### L 501.4021, L506.0400, L501.9520, L100.0100, L503.7505, L500.2500 #### [facility] [address] [place], [address] ALT [Catalytic activity/Vol] 20 U/L Normal 16-61 [facility] Comment on above: Performed By: #### L 501.4021, L506.0400, L501.9520, L100.0100, L503.7505, L500.2500 #### [facility] [address] [place], [address] AST [Catalytic activity/Vol] 7 U/L Low 15-37 [facility] Comment on above: Performed By: #### L 501.4021, L506.0400, L501.9520, L100.0100, L503.7505, L500.2500 #### [facility] [address] [place], [address] Bilirubin [Mass/Vol] 0.40 mg/dL Normal 0.20-1.00 [facility] Comment on above: Result Comment: For patients on eltrombopag therapy, use of Dimension [place] TBIL is not recommended. Performed By: #### L 501.4021, L506.0400, L501.9520, L100.0100, L503.7505, L500.2500 #### [facility] [address] [place], [address] BUN/CRE 27.0 RATIO High 10-20 [facility] Comment on above: Performed By: #### L 501.4021, L506.0400, L501.9520, L100.0100, L503.7505, L500.2500 #### [facility] [address] [place], [address] CA,Total 9.2 mg/dL Normal 8.5-10.1 [facility] Comment on above: Performed By: #### L 501.4021, L506.0400, L501.9520, L100.0100, L503.7505, L500.2500 #### [facility] [address] [place], [address] Chloride [Moles/Vol] 99 mmol/L Normal 98-107 [facility] Comment on above: Performed By: #### L 501.4021, L506.0400, L501.9520, L100.0100, L503.7505, L500.2500 #### [facility] [address] [place], [address] CO2 [Moles/Vol] 25.0 mmol/L Normal 21.0-32.0 [facility] Comment on above: Performed By: #### L 501.4021, L506.0400, L501.9520, L100.0100, L503.7505, L500.2500 #### [facility] [address] [place], [address] Creatinine [Mass/Vol] 1.26 mg/dL Normal 0.70-1.30 [facility] Comment on above: Result Comment: The validity of the calculated GFR GFRAA in patients over 70 years has not been determined. Clinical correlation is essential. Performed By: #### L 501.4021, L506.0400, L501.9520, L100.0100, L503.7505, L500.2500 #### [facility] [address] [place], [address] ECRCL 80.25 ml/min Normal [facility] Comment on above: Performed By: #### L 501.4021, L506.0400, L501.9520, L100.0100, L503.7505, L500.2500 #### [facility] [address] [place], [address] EST GFR - AA 77 mL/min Normal >60 [facility] Comment on above: Result Comment: Afri can Russian GFR Calc Performed By: #### L 501.4021, L506.0400, L501.9520, L100.0100, L503.7505, L500.2500 #### [facility] [address] [place], [address] GAP 9 Normal 5-15 [facility] Comment on above: Performed By: #### L 501.4021, L506.0400, L501.9520, L100.0100, L503.7505, L500.2500 #### [facility] [address] [place], [address] GFR/1.73 sq M.predicted among non-blacks MDRD (S/P/Bld) [Vol rate/Area] 64 mL/min/{1.73_m2} Normal >60 [facility] Comment on above: Result Comment: Non- GFR Calc Performed By: #### L 501.4021, L506.0400, L501.9520, L100.0100, L503.7505, L500.2500 #### [facility] [address] [place], [address] Globulin (S) [Mass/Vol] 4.2 g/dL Normal 2.2-4.2 [facility] Comment on above: Performed By: #### L 501.4021, L506.0400, L501.9520, L100.0100, L503.7505, L500.2500 #### [facility] [address] [place], [address] Glucose [Mass/Vol] 375 mg/dL High 74-106 [facility] Comment on above: Result Comment: Gluc ose result greater than or equal to 200 mg/dL suggests DIABETES MELLITUS per A.D.A. criteria. Performed By: #### L 501.4021, L506.0400, L501.9520, L100.0100, L503.7505, L500.2500 #### [facility] [address] [place], [address] Potassium [Moles/Vol] 4.0 mmol/L Normal 3.5-5.1 [facility] Comment on above: Performed By: #### L 501.4021, L506.0400, L501.9520, L100.0100, L503.7505, L500.2500 #### [facility] [address] [place], [address] Sodium [Moles/Vol] 133 mmol/L Low 136-145 [facility] Comment on above: Performed By: #### L 501.4021, L506.0400, L501.9520, L100.0100, L503.7505, L500.2500 #### [facility] [address] [place], [address] T PROT 6.9 g/dL Normal 6.4-8.2 [facility] Comment on above: Performed By: #### L 501.4021, L506.0400, L501.9520, L100.0100, L503.7505, L500.2500 #### [facility] [address] [place], [address] Urea nitrogen [Mass/Vol] 34 mg/dL High 7-18 [facility] Comment on above: Performed By: #### L 501.4021, L506.0400, L501.9520, L100.0100, L503.7505, L500.2500 #### [facility] [address] [place], [address] Magnesiumon 10-12-2024 Magnesium [Mass/Vol] 1.9 mg/dL Normal 1.6-2.6 [facility] Comment on above: Performed By: #### L 501.4021, L506.0400, L501.9520, L100.0100, L503.7505, L500.2500 #### [facility] [address] [place], [address] Phosphoruson 10-12-2024 Phosphate [Mass/Vol] 3.3 mg/dL Normal 2.5-4.9 [facility] Comment on above: Performed By: #### L 501.4021, L506.0400, L501.9520, L100.0100, L503.7505, L500.2500 #### [facility] [address] [place], [address] BNP,B-Type NATRIURETIC PEPTI [place] 10-11-2024 Natriuretic peptide B (Bld) [Mass/Vol] 206.7 pg/mL High 0-100 [facility] Comment on above: Performed By: #### L 501.4021, L506.0400, L501.9520, L100.0100, L503.7505, L500.2500 #### [facility] [address] [place], [address] Bedside Glucoseon 10-11-2024 FINGERSTICK GLU 268 mg/dL High 74-106 [facility] Comment on above: Result Comment: CARLOS BONILLA OF PATIENT CARE PER NURSING PROTOCOL Performed By: #### L 501.4021, L506.0400, L501.9520, L100.0100, L503.7505, L500.2500 #### [facility] [address] [place], [address] FINGERSTICK GLU 358 mg/dL High 74-106 [facility] Comment on above: Result Comment: CARLOS GEMENT OF PATIENT CARE PER NURSING PROTOCOL Performed By: #### L 503.6005, L300.3900, L501.5425, L100.0100, L500.2500, L300.4310, L503.6620 #### [facility] [address] [facility] [address] FINGERSTICK GLU 272 mg/dL High 74-106 [facility] Comment on above: Result Comment: CARLOS GEMENT OF PATIENT CARE PER NURSING PROTOCOL Performed By: #### L 501.4021, L506.0400, L501.9520, L100.0100, L503.7505, L500.2500 #### [facility] [address] [facility] [address] FINGERSTICK GLU 284 mg/dL High 74-106 [facility] Comment on above: Result Comment: CARLOS GEMENT OF PATIENT CARE PER NURSING PROTOCOL Performed By: #### L 501.4021, L506.0400, L501.9520, L100.0100, L503.7505, L500.2500 #### [facility] [address] [facility] [address] FINGERSTICK GLU 252 mg/dL High 74-106 [facility] Comment on above: Result Comment: CARLOS GEMENT OF PATIENT CARE PER NURSING PROTOCOL Performed By: #### L 503.6005, L300.3900, L501.5425, L100.0100, L500.2500, L300.4310, L503.6620 #### [facility] [address] [facility] [address] FINGERSTICK GLU 152 mg/dL High 74-106 [facility] Comment on above: Result Comment: CARLOS GEMENT OF PATIENT CARE PER NURSING PROTOCOL Performed By: #### L 501.080 #### [facility] [address] [place], [address] CBC W/Diff, Automatedon 11-2 -2023 Absolute Lymph 1.52 X10 3/uL Normal 0.83-4.51 [facility] Comment on above: Performed By: #### L 501.4021, L506.0400, L501.9520, L100.0100, L503.7505, L500.2500 #### [facility] [address] [place], [address] Absolute Neut 10.1 X10 3/uL High 2.0-7.7 [facility] Comment on above: Performed By: #### L 501.4021, L506.0400, L501.9520, L100.0100, L503.7505, L500.2500 #### [facility] [address] [place], [address] Basophils/100 WBC (Bld) 0.5 % Normal 0-1 [facility] Comment on above: Performed By: #### L 501.4021, L506.0400, L501.9520, L100.0100, L503.7505, L500.2500 #### [facility] [address] [place], [address] Eosinophils/100 WBC (Bld) 1.1 % Normal 0-5 [facility] Comment on above: Performed By: #### L 501.4021, L506.0400, L501.9520, L100.0100, L503.7505, L500.2500 #### [facility] [address] [place], [address] Erythrocyte distribution width (RBC) [Ratio] 13.3 % Normal 11.6-14.6 [facility] Comment on above: Performed By: #### L 501.4021, L506.0400, L501.9520, L100.0100, L503.7505, L500.2500 #### [facility] [address] [place], [address] Hematocrit (Bld) [Volume fraction] 42.6 % Normal 40-54 [facility] Comment on above: Performed By: #### L 501.4021, L506.0400, L501.9520, L100.0100, L503.7505, L500.2500 #### [facility] [address] [place], [address] Hemoglobin (Bld) [Mass/Vol] 13.2 g/dL Normal 13.0-16.5 [facility] Comment on above: Performed By: #### L 501.4021, L506.0400, L501.9520, L100.0100, L503.7505, L500.2500 #### [facility] [address] [place], [address] IG% 0.400 Normal 0.0-0.9 [facility] Comment on above: Result Comment: IG% - Immature Granulocytes (promyelocytes, myelocytes and metamyelocytes) > 1% indicates that a LEFT SHIFT is Present. Performed By: #### L 501.4021, L506.0400, L501.9520, L100.0100, L503.7505, L500.2500 #### [facility] [address] [place], [address] Lymphocytes/100 WBC (Bld) 12.3 % Low 19-41 [facility] Comment on above: Performed By: #### L 501.4021, L506.0400, L501.9520, L100.0100, L503.7505, L500.2500 #### [facility] [address] [place], [address] MCH (RBC) [Entitic mass] 27.3 pg Normal 27.0-32.0 [facility] Comment on above: Performed By: #### L 501.4021, L506.0400, L501.9520, L100.0100, L503.7505, L500.2500 #### [facility] [address] [place], [address] MCHC (RBC) [Mass/Vol] 31.0 g/dL Low 32-36 [facility] Comment on above: Performed By: #### L 501.4021, L506.0400, L501.9520, L100.0100, L503.7505, L500.2500 #### [facility] [address] [place], [address] MCV (RBC) [Entitic vol] 88.2 fL Normal 80-94 [facility] Comment on above: Performed By: #### L 501.4021, L506.0400, L501.9520, L100.0100, L503.7505, L500.2500 #### [facility] [address] [place], [address] Monocytes/100 WBC (Bld) 3.9 % Normal 0-10 [facility] Comment on above: Performed By: #### L 501.4021, L506.0400, L501.9520, L100.0100, L503.7505, L500.2500 #### [facility] [address] [place], [address] Neutrophils/100 WBC (Bld) 81.8 % High 47-70 [facility] Comment on above: Performed By: #### L 501.4021, L506.0400, L501.9520, L100.0100, L503.7505, L500.2500 #### [facility] [address] [place], [address] Nucleated RBC (Bld) [#/Vol] 0 10*3/uL Normal 0-5 [facility] Comment on above: Performed By: #### L 501.4021, L506.0400, L501.9520, L100.0100, L503.7505, L500.2500 #### [facility] [address] [place], [address] Platelet mean volume (Bld) [Entitic vol] 10.7 fL Normal 6.2-12.0 [facility] Comment on above: Performed By: #### L 501.4021, L506.0400, L501.9520, L100.0100, L503.7505, L500.2500 #### [facility] [address] [place], [address] Platelets (Bld) [#/Vol] 350 10*3/uL Normal 150-450 [facility] Comment on above: Performed By: #### L 501.4021, L506.0400, L501.9520, L100.0100, L503.7505, L500.2500 #### [facility] [address] [place], [address] RBC (Bld) [#/Vol] 4.83 10*6/uL Normal 4.6-6.2 [facility] Comment on above: Performed By: #### L 501.4021, L506.0400, L501.9520, L100.0100, L503.7505, L500.2500 #### [facility] [address] [place], [address] RDW SD 43.4 fl Normal 35.1-43.9 [facility] Comment on above: Performed By: #### L 501.4021, L506.0400, L501.9520, L100.0100, L503.7505, L500.2500 #### [facility] [address] [place], [address] WBC (Bld) [#/Vol] 12.3 10*3/uL High 4.4-11.0 [facility] Comment on above: Performed By: #### L 501.4021, L506.0400, L501.9520, L100.0100, L503.7505, L500.2500 #### [facility] [address] [place], [address] Chest 1 View (Portable)on Chest 1 View (Portable) [facility] [address] [place] [address] Chest 1 View (Portable) MR#: [id number] Acct: [id number] Name: LATONYA ELDER Rep #: [id number] : 1970 M 54 From: Danya Torrez PCP: Dr. Beka Bowie MD Status: ADM IN Study: Chest 1 View (Portable) Date of Exam: 10/11/24 Exam# [id number] Ordering Dr: Mitchell Deras DO -[id number] INDICATION: AE CHF EXAMINATION/TECHNIQ UE: X-RAY [...] Mitchell Deras DO; Dr. Beka Bowie MD [employer] Assistant: Signed Normal [facility] Comprehensive Metabolic Prof ilon 10-11-2024 Albumin [Mass/Vol] 3.0 g/dL Low 3.2-5.0 [facility] Comment on above: Performed By: #### L 501.4021, L506.0400, L501.9520, L100.0100, L503.7505, L500.2500 #### [facility] [address] [place], [address] Albumin/Globulin [Mass ratio] 0.7 {ratio} Low 0.9-2.4 [facility] Comment on above: Performed By: #### L 501.4021, L506.0400, L501.9520, L100.0100, L503.7505, L500.2500 #### [facility] [address] [place], [address] ALK P 93 U/L Normal 45-117 [facility] Comment on above: Performed By: #### L 501.4021, L506.0400, L501.9520, L100.0100, L503.7505, L500.2500 #### [facility] [address] [place], [address] ALT [Catalytic activity/Vol] 20 U/L Normal 16-61 [facility] Comment on above: Performed By: #### L 501.4021, L506.0400, L501.9520, L100.0100, L503.7505, L500.2500 #### [facility] [address] [place], [address] AST [Catalytic activity/Vol] 13 U/L Low 15-37 [facility] Comment on above: Performed By: #### L 501.4021, L506.0400, L501.9520, L100.0100, L503.7505, L500.2500 #### [facility] [address] [place], [address] Bilirubin [Mass/Vol] 0.60 mg/dL Normal 0.20-1.00 [facility] Comment on above: Result Comment: For patients on eltrombopag therapy, use of Dimension [place] TBIL is not recommended. Performed By: #### L 501.4021, L506.0400, L501.9520, L100.0100, L503.7505, L500.2500 #### [facility] [address] [place], [address] BUN/CRE 16.5 RATIO Normal 10-20 [facility] Comment on above: Performed By: #### L 501.4021, L506.0400, L501.9520, L100.0100, L503.7505, L500.2500 #### [facility] [address] [place], [address] CA,Total 9.0 mg/dL Normal 8.5-10.1 [facility] Comment on above: Performed By: #### L 501.4021, L506.0400, L501.9520, L100.0100, L503.7505, L500.2500 #### [facility] [address] [place], [address] Chloride [Moles/Vol] 99 mmol/L Normal 98-107 [facility] Comment on above: Performed By: #### L 501.4021, L506.0400, L501.9520, L100.0100, L503.7505, L500.2500 #### [facility] [address] [place], [address] CO2 [Moles/Vol] 28.0 mmol/L Normal 21.0-32.0 [facility] Comment on above: Performed By: #### L 501.4021, L506.0400, L501.9520, L100.0100, L503.7505, L500.2500 #### [facility] [address] [place], [address] Creatinine [Mass/Vol] 1.39 mg/dL High 0.70-1.30 [facility] Comment on above: Result Comment: The validity of the calculated GFR GFRAA in patients over 70 years has not been determined. Clinical correlation is essential. Performed By: #### L 501.4021, L506.0400, L501.9520, L100.0100, L503.7505, L500.2500 #### [facility] [address] [place], [address] ECRCL 71.00 ml/min Normal [facility] Comment on above: Performed By: #### L 501.4021, L506.0400, L501.9520, L100.0100, L503.7505, L500.2500 #### [facility] [address] [place], [address] EST GFR - AA 69 mL/min Normal >60 [facility] Comment on above: Result Comment: Afri can [place] GFR Calc Performed By: #### L 501.4021, L506.0400, L501.9520, L100.0100, L503.7505, L500.2500 #### [facility] [address] [place], [address] GAP 8 Normal 5-15 [facility] Comment on above: Performed By: #### L 501.4021, L506.0400, L501.9520, L100.0100, L503.7505, L500.2500 #### [facility] [address] [place], [address] GFR/1.73 sq M.predicted among non-blacks MDRD (S/P/Bld) [Vol rate/Area] 57 mL/min/{1.73_m2} Low >60 [facility] Comment on above: Result Comment: Non- GFR Calc Performed By: #### L 501.4021, L506.0400, L501.9520, L100.0100, L503.7505, L500.2500 #### [facility] [address] [place], [place] [address] Globulin (S) [Mass/Vol] 4.3 g/dL High 2.2-4.2 [facility] Comment on above: Performed By: #### L 501.4021, L506.0400, L501.9520, L100.0100, L503.7505, L500.2500 #### [facility] [address] [place], [address] Glucose [Mass/Vol] 226 mg/dL High 74-106 [facility] Comment on above: Result Comment: Gluc ose result greater than or equal to 200 mg/dL suggests DIABETES MELLITUS per A.D.A. criteria. Performed By: #### L 501.4021, L506.0400, L501.9520, L100.0100, L503.7505, L500.2500 #### [facility] [address] [place], [address] Potassium [Moles/Vol] 3.7 mmol/L Normal 3.5-5.1 [facility] Comment on above: Performed By: #### L 501.4021, L506.0400, L501.9520, L100.0100, L503.7505, L500.2500 #### [facility] [address] [place], [address] Sodium [Moles/Vol] 135 mmol/L Low 136-145 [facility] Comment on above: Performed By: #### L 501.4021, L506.0400, L501.9520, L100.0100, L503.7505, L500.2500 #### [facility] [address] [place], [address] T PROT 7.3 g/dL Normal 6.4-8.2 [facility] Comment on above: Performed By: #### L 501.4021, L506.0400, L501.9520, L100.0100, L503.7505, L500.2500 #### [facility] [address] [place], [address] Urea nitrogen [Mass/Vol] 23 mg/dL High 7-18 [facility] Comment on above: Performed By: #### L 501.4021, L506.0400, L501.9520, L100.0100, L503.7505, L500.2500 #### [facility] [address] [place], [address] Gram Stainon 10-11-2024 GS SENT LABEL TO U FOR COLLECTION Acceptable Specimen? Yes (<25 Epithelial cells per/lpf) Gram Stain Rare White Blood Cells Rare Epithelial cells 3+ Gram positive cocci in chains 1+ Gram negative rods Normal [facility] Comment on above: Performed By: #### L 503.6005, L300.3900, L501.5425, L100.0100, L500.2500, L300.4310, L503.6620 #### [facility] [address] [place], [address] Hemoglobin A1con 10-11-2024 HbA1c (Bld) [Mass fraction] 9.5 % High 3.8-5.6 [facility] Comment on above: Result Comment: Norm al < 5.7 % Prediabetic 5.7 - 6.4 % Diabetic >or= 6.5 % Please note range changes. Performed By: #### L 501.4021, L506.0400, L501.9520, L100.0100, L503.7505, L500.2500 #### [facility] [address] [place], [address] L501.4020on 10-11-2024 TROPONIN-I HS 99 pg/mL High 3.0-78.0 [facility] Comment on above: Order Comment: 'TROP ' Serial specimen #1, #2 or #3: 3 3 Result Comment: Plea se Note: New Test Units and Gender Specific Reference Ranges. For more information see Policy Stat Procedure [place] High Sensitivity Troponin (TNIH) and attachments. Performed By: #### L 501.4020 #### [facility] [address] [place], [address] Lipid Profileon 10-11-2024 HDL Normal [facility] Comment on above: Result Comment: DUPL ICATE ORDER. The drugs N-Acetylcysteine and Metamizole may falsely depress this assay. Performed By: #### L 501.4021, L506.0400, L501.9520, L100.0100, L503.7505, L500.2500 #### [facility] [address] [place], [address] TRIG Normal [facility] Comment on above: Result Comment: DUPL ICATE ORDER. The drugs N-Acetylcysteine and Metamizole may falsely depress this assay. Performed By: #### L 501.4021, L506.0400, L501.9520, L100.0100, L503.7505, L500.2500 #### [facility] [address] [place], [address] Cholesterol [Mass/Vol] 146 mg/dL Normal 200 [facility] Comment on above: Result Comment: <200 mg/dL Desirable 200-240 mg/dL Borderline >240 mg/dL High Risk Performed By: #### L 501.4021, L506.0400, L501.9520, L100.0100, L503.7505, L500.2500 #### [facility] [address] [place], [address] Cholesterol in HDL [Mass/Vol] 33 mg/dL Low [facility] Comment on above: Result Comment: The drugs N-Acetylcysteine and Metamizole may falsely depress this assay. Reference Range HDL <40 mg/dL Low HDL Cholesterol HDL >or= 60 mg/dL High HDL Cholesterol Performed By: #### L 501.4021, L506.0400, L501.9520, L100.0100, L503.7505, L500.2500 #### [facility] [address] [place], [address] Cholesterol in LDL [Mass/Vol] 89 mg/dL Normal 0-130 [facility] Comment on above: Performed By: #### L 501.4021, L506.0400, L501.9520, L100.0100, L503.7505, L500.2500 #### [facility] [address] [place], [address] Cholesterol in VLDL [Mass/Vol] 24 mg/dL Normal 5-40 [facility] Comment on above: Performed By: #### L 501.4021, L506.0400, L501.9520, L100.0100, L503.7505, L500.2500 #### [facility] [address] [place], [address] Triglyceride [Mass/Vol] 119 mg/dL Normal [facility] Comment on above: Result Comment: The drugs N-Acetylcysteine and Metamizole may falsely depress this assay. Serum Triglycerides Reference Interval Normal <150 mg/dL Borderline high 150 - 199 mg/dL High 200 - 499 mg/dL Very High > or = 500 mg/dL Performed By: #### L 501.4021, L506.0400, L501.9520, L100.0100, L503.7505, L500.2500 #### [facility] [address] [place], [address] CHOL Normal 200 [facility] Comment on above: Result Comment: DUPL ICATE ORDER. Performed By: #### L 501.4021, L506.0400, L501.9520, L100.0100, L503.7505, L500.2500 #### [facility] [address] [place], [address] LDL Normal 0-130 [facility] Comment on above: Result Comment: DUPL ICATE ORDER. Performed By: #### L 501.4021, L506.0400, L501.9520, L100.0100, L503.7505, L500.2500 #### [facility] [address] [place], [address] VLDL Normal 5-40 [facility] Comment on above: Result Comment: DUPL ICATE ORDER. Performed By: #### L 501.4021, L506.0400, L501.9520, L100.0100, L503.7505, L500.2500 #### [facility] [address] [place], [address] Magnesiumon 10-11-2024 Magnesium [Mass/Vol] 2.0 mg/dL Normal 1.6-2.6 [facility] Comment on above: Performed By: #### L 501.4021, L506.0400, L501.9520, L100.0100, L503.7505, L500.2500 #### [facility] [address] [place], [address] Phosphoruson 10-11-2024 Phosphate [Mass/Vol] 2.8 mg/dL Normal 2.5-4.9 [facility] Comment on above: Performed By: #### L 501.4021, L506.0400, L501.9520, L100.0100, L503.7505, L500.2500 #### [facility] [address] [place], [address] RESPIRATORY PANEL MOLECULARo n 10-11-2024 RP PANEL ADENOVIRUS Not Detected INFLUENZA A Not Detected INFLUENZA A (SUBTYPE H1) Not Detected INFLUENZA A (SUBTYPE H3) Not Detected INFLUENZA B Not Detected HUMAN METAPHNEUMO Not Detected PARAINFLUENZA 1 Not Detected PARAINFLUENZA 2 Not Detected PARAINFLUENZA 3 Not Detected PARAINFLUENZA 4 Not Detected RHINOVIRUS Not Detected RSV A Not Detected RSV B Not Detected Normal [facility] Comment on above: Performed By: #### L 503.6005, L300.3900, L501.5425, L100.0100, L500.2500, L300.4310, L503.6620 #### [facility] [address] [place], [address] Thyroid Stim Hormone (TSH)on 10-11-2024 TSH 1.590 uIU/mL Normal 0.358-3.740 [facility] Comment on above: Performed By: #### L 501.4021, L506.0400, L501.9520, L100.0100, L503.7505, L500.2500 #### [facility] [address] [place], [address] 12 Lead EKGon 10-10-2024 12 Lead EKG [facility] Services [address] [place] [address] 12 Lead EKG 10/10/241957 MR#: [id number] Acct: [id number] Name: LATONYA ELDER Rep #: [id number] : 1970 54 From: Harvey Murphy MD Attending Dr: Dr. Nasim Leblanc MD Status: ADM IN Ordering Dr: Brennon Mckeon DO Date: 10/10/24 Location: [facility] Sex: M C Admitted: 10/11/24 Test [...] undetermined Abnormal ECG Confirmed by Harvey Murphy ([id number]), editor & co founder EVELIO CURRY ([id number]) on 10/13/2024 6:24:07 AM Referred By: Confirmed By: Harvey Murphy 10/13/24 0624 Date Harvey Murphy MD CC: Dr. Beka Bowie MD; Dr. Brennon Mckeon DO; Dr. Nasim Leblacn MD Signed Normal [facility] BNP,B-Type NATRIURETIC PEPTI [place] 10-10-2024 Natriuretic peptide B (Bld) [Mass/Vol] 261.1 pg/mL High 0-100 [facility] Comment on above: Performed By: #### L 501.4020 #### [facility] [address] [place], [address] Basic Metabolic Profile (BMP )on 10-10-2024 BUN/CRE 14.7 RATIO Normal 10-20 [facility] Comment on above: Order Comment: 1Y Performed By: #### L 501.4020 #### [facility] [address] [place], [address] CA,Total 8.9 mg/dL Normal 8.5-10.1 [facility] Comment on above: Order Comment: 1Y Performed By: #### L 501.4020 #### [facility] [address] [place], [address] Chloride [Moles/Vol] 105 mmol/L Normal 98-107 [facility] Comment on above: Order Comment: 1Y Performed By: #### L 501.4020 #### [facility] [address] [place], [address] CO2 [Moles/Vol] 28.0 mmol/L Normal 21.0-32.0 [facility] Comment on above: Order Comment: 1Y Performed By: #### L 501.4020 #### [facility] [address] [place], [address] Creatinine [Mass/Vol] 1.09 mg/dL Normal 0.70-1.30 [facility] Comment on above: Order Comment: 1Y Result Comment: The validity of the calculated GFR GFRAA in patients over 70 years has not been determined. Clinical correlation is essential. Performed By: #### L 501.4020 #### [facility] [address] [place], [address] ECRCL 92.66 ml/min Normal [facility] Comment on above: Order Comment: 1Y Performed By: #### L 501.4020 #### [facility] [address] [place], [address] EST GFR - AA 91 mL/min Normal >60 [facility] Comment on above: Order Comment: 1Y Result Comment: Afri can Russian GFR Calc Performed By: #### L 501.4020 #### [facility] [address] [place], [address] GAP 6 Normal 5-15 [facility] Comment on above: Order Comment: 1Y Performed By: #### L 501.4020 #### [facility] [address] [place], [address] GFR/1.73 sq M.predicted among non-blacks MDRD (S/P/Bld) [Vol rate/Area] 75 mL/min/{1.73_m2} Normal >60 [facility] Comment on above: Order Comment: 1Y Result Comment: Non- GFR Calc Performed By: #### L 501.4020 #### [facility] [address] [place], [address] Glucose [Mass/Vol] 160 mg/dL High 74-106 [facility] Comment on above: Order Comment: 1Y Result Comment: Fast ing Glucose result greater than or equal to 126 mg/dL suggests DIABETES MELLITUS per A.D.A. criteria. Performed By: #### L 501.4020 #### [facility] [address] [place], [address] Potassium [Moles/Vol] 3.7 mmol/L Normal 3.5-5.1 [facility] Comment on above: Order Comment: 1Y Performed By: #### L 501.4020 #### [facility] [address] [place], [address] Sodium [Moles/Vol] 138 mmol/L Normal 136-145 [facility] Comment on above: Order Comment: 1Y Performed By: #### L 501.4020 #### [facility] [address] [place], [address] Urea nitrogen [Mass/Vol] 16 mg/dL Normal 7-18 [facility] Comment on above: Order Comment: 1Y Performed By: #### L 501.4020 #### [facility] [address] [place], [address] CBC W/Diff, Automatedon 11-2 2-2023 Absolute Lymph 1.94 X10 3/uL Normal 0.83-4.51 [facility] Comment on above: Performed By: #### L 503.6005, L300.3900, L501.5425, L100.0100, L500.2500, L300.4310, L503.6620 #### [facility] [address] [place], [address] Absolute Neut 8.6 X10 3/uL High 2.0-7.7 [facility] Comment on above: Performed By: #### L 503.6005, L300.3900, L501.5425, L100.0100, L500.2500, L300.4310, L503.6620 #### [facility] [address] [place], [address] Basophils/100 WBC (Bld) 0.4 % Normal 0-1 [facility] Comment on above: Performed By: #### L 503.6005, L300.3900, L501.5425, L100.0100, L500.2500, L300.4310, L503.6620 #### [facility] [address] [place], [address] Eosinophils/100 WBC (Bld) 0.6 % Normal 0-5 [facility] Comment on above: Performed By: #### L 503.6005, L300.3900, L501.5425, L100.0100, L500.2500, L300.4310, L503.6620 #### [facility] [address] [place], [address] Erythrocyte distribution width (RBC) [Ratio] 13.4 % Normal 11.6-14.6 [facility] Comment on above: Performed By: #### L 503.6005, L300.3900, L501.5425, L100.0100, L500.2500, L300.4310, L503.6620 #### [facility] [address] [place], [address] Hematocrit (Bld) [Volume fraction] 39.2 % Low 40-54 [facility] Comment on above: Performed By: #### L 503.6005, L300.3900, L501.5425, L100.0100, L500.2500, L300.4310, L503.6620 #### [facility] [address] [place], [address] Hemoglobin (Bld) [Mass/Vol] 12.6 g/dL Low 13.0-16.5 [facility] Comment on above: Performed By: #### L 503.6005, L300.3900, L501.5425, L100.0100, L500.2500, L300.4310, L503.6620 #### [facility] [address] [place], [address] IG% 0.300 Normal 0.0-0.9 [facility] Comment on above: Result Comment: IG% - Immature Granulocytes (promyelocytes, myelocytes and metamyelocytes) > 1% indicates that a LEFT SHIFT is Present. Performed By: #### L 503.6005, L300.3900, L501.5425, L100.0100, L500.2500, L300.4310, L503.6620 #### [facility] [address] [place], [address] Lymphocytes/100 WBC (Bld) 16.3 % Low 19-41 [facility] Comment on above: Performed By: #### L 503.6005, L300.3900, L501.5425, L100.0100, L500.2500, L300.4310, L503.6620 #### [facility] [address] [place], [address] MCH (RBC) [Entitic mass] 27.8 pg Normal 27.0-32.0 [facility] Comment on above: Performed By: #### L 503.6005, L300.3900, L501.5425, L100.0100, L500.2500, L300.4310, L503.6620 #### [facility] [address] [place], [address] MCHC (RBC) [Mass/Vol] 32.1 g/dL Normal 32-36 [facility] Comment on above: Performed By: #### L 503.6005, L300.3900, L501.5425, L100.0100, L500.2500, L300.4310, L503.6620 #### [facility] [address] [place], [address] MCV (RBC) [Entitic vol] 86.3 fL Normal 80-94 [facility] Comment on above: Performed By: #### L 503.6005, L300.3900, L501.5425, L100.0100, L500.2500, L300.4310, L503.6620 #### [facility] [address] [place], [address] Monocytes/100 WBC (Bld) 10.3 % High 0-10 [facility] Comment on above: Performed By: #### L 503.6005, L300.3900, L501.5425, L100.0100, L500.2500, L300.4310, L503.6620 #### [facility] [address] [place], [address] Neutrophils/100 WBC (Bld) 72.1 % High 47-70 [facility] Comment on above: Performed By: #### L 503.6005, L300.3900, L501.5425, L100.0100, L500.2500, L300.4310, L503.6620 #### [facility] [address] [place], [address] Nucleated RBC (Bld) [#/Vol] 0 10*3/uL Normal 0-5 [facility] Comment on above: Performed By: #### L 503.6005, L300.3900, L501.5425, L100.0100, L500.2500, L300.4310, L503.6620 #### [facility] [address] [place], [address] Platelet mean volume (Bld) [Entitic vol] 10.3 fL Normal 6.2-12.0 [facility] Comment on above: Performed By: #### L 503.6005, L300.3900, L501.5425, L100.0100, L500.2500, L300.4310, L503.6620 #### [facility] [address] [place], [address] Platelets (Bld) [#/Vol] 320 10*3/uL Normal 150-450 [facility] Comment on above: Performed By: #### L 503.6005, L300.3900, L501.5425, L100.0100, L500.2500, L300.4310, L503.6620 #### [facility] [address] [place], [address] RBC (Bld) [#/Vol] 4.54 10*6/uL Low 4.6-6.2 [facility] Comment on above: Performed By: #### L 503.6005, L300.3900, L501.5425, L100.0100, L500.2500, L300.4310, L503.6620 #### [facility] [address] [place], [address] RDW SD 41.7 fl Normal 35.1-43.9 [facility] Comment on above: Performed By: #### L 503.6005, L300.3900, L501.5425, L100.0100, L500.2500, L300.4310, L503.6620 #### [facility] [address] [place], [address] WBC (Bld) [#/Vol] 11.9 10*3/uL High 4.4-11.0 [facility] Comment on above: Performed By: #### L 503.6005, L300.3900, L501.5425, L100.0100, L500.2500, L300.4310, L503.6620 #### [facility] [address] [place], [address] CTA Chest W/WO Contraston CTA Chest W/WO Contrast [facility] Imaging Services [address] [place] [address] CTA Chest W/WO Contrast MR#: [id number] Acct: [id number] Name: LATONYA ELDER Rep #: [id number] : 1970 M 54 From: David Yanez MD PCP: Dr. Beka Bowie MD Status: [facility] ER Study: CTA Chest W/WO Contrast Date of Exam: 10/10/24 Exam# [id number] Ordering Dr: Brennon Mckeon DO -[id number] STUDY: CTA CHEST REASON FOR EXAM: [...] 20:40 EST Reading Location ID and State: [address] [place] [address] Tel , Service support , CC: Dr. Beka Bowie MD; Dr. Brennon Mckeon DO Talent Acquisition Assistant: Signed Normal [facility] Emergency Department Summary on 10-10-2024 Emergency Department Summary [facility] Medical Records Department [address] [place] [address] Emergency Department Summary 10/10/24 MR#: [id number] Acct: [id number] Name: LATONYA ELDER Rep #: [id number] : 1970 54 From: Brennon Mckeon DO PCP: Dr. Beka Bowie MD Status:ADM IN Location: PCU [id number] HPI History of Present Illness Chief Complaint: [...] Recent immobilization, Recent surgery or Recent travel [facility] Medical History Acute sinusitis, unspecified Left shoulder pain Insulin dependent diabetes mellitus Coronary artery disease Essential hypertension Cluster headache Migraine Headache Diabetes Obesity Community acquired pneumonia Smoker Asthma Myocardial infarct Ischemic cardiomyopathy Obesity (BMI 30.0-34.9) Chronic obstructive pulmonary disease (COPD) Nicotine dependence COPD (chronic obstructive pulmonary disease) Hyperlipidemia History of non-ST elevation myocardial infarction (NSTEMI) (11/22/20) Atherosclerosis of ruby coronary artery of ruby heart without angina pectoris Non-ST elevation AR (NSTEMI) Home Medications ???Medication ???Instructions ???Recorded ???Last Taken ???Type aspirin 81 mg chewable tablet 81 mg PO DAILY heart health 04/27/22 04/27/22 History loratadine 10 mg tablet 10 mg PO DAILY PRN allergies 06/26/22 Unknown History carved[facility] 25 mg tablet [facility]23 Unknown Rx tabs clonidine HCl [...] History (Re (more content not included)... Normal [facility] H AND P Exam - [facility] 10-10-2024 H&P Exam - Hospitalist [facility] Medical Records Department [address] [place] [address] H P Exam - Hospitalist 10/10/24 2336 MR#: [id number] Acct: [id number] Name: LATONYA ELDER Rep #: [id number] : 1970 54 From: Mitchell Deras DO PCP: Dr. Beka Bowie MD Status:ADM IN Location: [place] [address] HPI - General General Date of Admission: [...] history of neck surgery who presents to [facility] ER complaining of SOB and cough. Mr. [...] is expected to extend beyond 2 midnights. [facility] Medical History Acute sinusitis, unspecified Left shoulder pain Insulin dependent diabetes mellitus Coronary artery disease Essential hypertension Cluster headache Migraine Headache Diabetes Obesity Community acquired pneumonia Smoker Asthma Myocardial infarct Ischemic cardiomyopathy Obesity (BMI 30.0-34.9) Chronic obstructive pulmonary disease (COPD) Nicotine dependence COPD (chronic obstructive pulmonary disease) Hyperlipidemia History of non-ST elevation myocardial infarction (NSTEMI) (11/22/20) Atherosclerosis of ruby coronary artery of ruby heart without angina pectoris Non-ST elevation AR (NSTEMI) Home Medications ???Medication ???Instructions ???Recorded ???Last [...] tabs 02 (more content not included)... Normal [facility] L501.4020on 10-10-2024 TROPONIN-I HS 105 pg/mL High 3.0-78.0 [facility] Comment on above: Result Comment: Colette antunez Note: New Test Units and Gender Specific Reference Ranges. For more information see Policy Stat Procedure [place] High Sensitivity Troponin (TNIH) and attachments. Performed By: #### L 501.4020 #### [facility] [address] [place], [place], [address] L501.5425on 10-10-2024 TROPONIN-I HS 112 pg/mL High 3.0-78.0 [facility] Comment on above: Order Comment: 1Y Result Comment: Pleazra antunez Note: New Test Units and Gender Specific Reference Ranges. For more information see Policy Stat Procedure [place] High Sensitivity Troponin (TNIH) and attachments. Performed By: #### L 501.4020 #### [facility] [address] [place], [place], [address] Lactic Acidon 11-22-2024 Lactate [Moles/Vol] 1.2 mmol/L Normal 0.4-1.9 [facility] Comment on above: Order Comment: Y Performed By: #### L 501.4020 #### [facility] [address] [place], [address] Partial Thromboplast Timeon 10-10-2024 aPTT Coag (Bld) [Time] 28.5 s Normal 24.1-36.2 [facility] Comment on above: Performed By: #### L 501.4020 #### [facility] [address] [place], [address] Prothrombin Time w/INRon INR Coag (PPP) [Relative time] 1.3 {INR} Normal [facility] Comment on above: Performed By: #### L 501.4020 #### [facility] [address] [place], [address] PT Coag (PPP) [Time] 15.7 s High 11.7-14.9 [facility] Comment on above: Performed By: #### L 501.4020 #### [facility] [address] [place], [address] 12 Lead EKGon 09-25-2024 12 Lead EKG [facility] Cardiovascular Services [address] [place] [address] 12 Lead EKG 09/25/24 1653 MR#: [id number] Acct: [id number] Name: LATONYA ELDER Rep #: [id number] : 1970 54 From: Eric Flores MD [...] Abnormal ECG Confirmed by SANDRA EVANGELISTA, ERIC ([id number]), editor & co founder TESS PERRY ([id number]) on 09/29/2024 10:11:59 AM Referred By: Confirmed By: ERIC FLORES MD 09/29/24 1012 Date Eric Flores MD CC: Dr. Beka Bowie MD; Dr. Brennon Mckeon, DO Signed Normal [facility] BNP,B-Type NATRIURETIC PEPTI [place] 09-25-2024 Natriuretic peptide B (Bld) [Mass/Vol] 307.2 pg/mL High 0-100 [facility] Comment on above: Performed By: #### L 501.4021, L506.0400, L501.9520, L100.0100, L503.7505, L500.2500 #### [facility] [address] [place], [address] Basic Metabolic Profile (BMP )on 09-25-2024 BUN/CRE 20.7 RATIO High 10-20 [facility] Comment on above: Order Comment: 'TROP ' Serial specimen #1, #2 or #3: 1 Performed By: #### L 501.4021, L506.0400, L501.9520, L100.0100, L503.7505, L500.2500 #### [facility] [address] [place], [address] CA,Total 8.8 mg/dL Normal 8.5-10.1 [facility] Comment on above: Order Comment: 'TROP ' Serial specimen #1, #2 or #3: 1 Performed By: #### L 501.4021, L506.0400, L501.9520, L100.0100, L503.7505, L500.2500 #### [facility] [address] [place], [address] Chloride [Moles/Vol] 108 mmol/L High 98-107 [facility] Comment on above: Order Comment: 'TROP ' Serial specimen #1, #2 or #3: 1 Performed By: #### L 501.4021, L506.0400, L501.9520, L100.0100, L503.7505, L500.2500 #### [facility] [address] [place], [address] CO2 [Moles/Vol] 29.0 mmol/L Normal 21.0-32.0 [facility] Comment on above: Order Comment: 'TROP ' Serial specimen #1, #2 or #3: 1 Performed By: #### L 501.4021, L506.0400, L501.9520, L100.0100, L503.7505, L500.2500 #### [facility] [address] [place], [address] Creatinine [Mass/Vol] 1.11 mg/dL Normal 0.70-1.30 [facility] Comment on above: Order Comment: 'TROP ' Serial specimen #1, #2 or #3: 1 Result Comment: The validity of the calculated GFR GFRAA in patients over 70 years has not been determined. Clinical correlation is essential. Performed By: #### L 501.4021, L506.0400, L501.9520, L100.0100, L503.7505, L500.2500 #### [facility] [address] [place], [address] ECRCL 93.07 ml/min Normal [facility] Comment on above: Order Comment: 'TROP ' Serial specimen #1, #2 or #3: 1 Performed By: #### L 501.4021, L506.0400, L501.9520, L100.0100, L503.7505, L500.2500 #### [facility] [address] [place], [address] EST GFR - AA 89 mL/min Normal >60 [facility] Comment on above: Order Comment: 'TROP ' Serial specimen #1, #2 or #3: 1 Result Comment: Afri can Russian GFR Calc Performed By: #### L 501.4021, L506.0400, L501.9520, L100.0100, L503.7505, L500.2500 #### [facility] [address] [place], [address] GAP 3 Low 5-15 [facility] Comment on above: Order Comment: 'TROP ' Serial specimen #1, #2 or #3: 1 Performed By: #### L 501.4021, L506.0400, L501.9520, L100.0100, L503.7505, L500.2500 #### [facility] [address] [place], [address] GFR/1.73 sq M.predicted among non-blacks MDRD (S/P/Bld) [Vol rate/Area] 74 mL/min/{1.73_m2} Normal >60 [facility] Comment on above: Order Comment: 'TROP ' Serial specimen #1, #2 or #3: 1 Result Comment: Non- GFR Calc Performed By: #### L 501.4021, L506.0400, L501.9520, L100.0100, L503.7505, L500.2500 #### [facility] [address] [place], [address] Glucose [Mass/Vol] 128 mg/dL High 74-106 [facility] Comment on above: Order Comment: 'TROP ' Serial specimen #1, #2 or #3: 1 Result Comment: Fast ing Glucose result greater than or equal to 126 mg/dL suggests DIABETES MELLITUS per A.D.A. criteria. Performed By: #### L 501.4021, L506.0400, L501.9520, L100.0100, L503.7505, L500.2500 #### [facility] [address] [place], [address] Potassium [Moles/Vol] 4.5 mmol/L Normal 3.5-5.1 [facility] Comment on above: Order Comment: 'TROP ' Serial specimen #1, #2 or #3: 1 Performed By: #### L 501.4021, L506.0400, L501.9520, L100.0100, L503.7505, L500.2500 #### [facility] [address] [place], [address] Sodium [Moles/Vol] 140 mmol/L Normal 136-145 [facility] Comment on above: Order Comment: 'TROP ' Serial specimen #1, #2 or #3: 1 Performed By: #### L 501.4021, L506.0400, L501.9520, L100.0100, L503.7505, L500.2500 #### [facility] [address] [place], [address] Urea nitrogen [Mass/Vol] 23 mg/dL High 7-18 [facility] Comment on above: Order Comment: 'TROP ' Serial specimen #1, #2 or #3: 1 Performed By: #### L 501.4021, L506.0400, L501.9520, L100.0100, L503.7505, L500.2500 #### [facility] [address] [place], [address] CBC W/Diff, Automatedon 11-0 7-2023 Absolute Lymph 3.00 X10 3/uL Normal 0.83-4.51 [facility] Comment on above: Performed By: #### L 501.4021, L506.0400, L501.9520, L100.0100, L503.7505, L500.2500 #### [facility] [address] [place], [address] Absolute Neut 7.8 X10 3/uL High 2.0-7.7 [facility] Comment on above: Performed By: #### L 501.4021, L506.0400, L501.9520, L100.0100, L503.7505, L500.2500 #### [facility] [address] [place], [address] Basophils/100 WBC (Bld) 0.5 % Normal 0-1 [facility] Comment on above: Performed By: #### L 501.4021, L506.0400, L501.9520, L100.0100, L503.7505, L500.2500 #### [facility] [address] [place], [address] Eosinophils/100 WBC (Bld) 2.7 % Normal 0-5 [facility] Comment on above: Performed By: #### L 501.4021, L506.0400, L501.9520, L100.0100, L503.7505, L500.2500 #### [facility] [address] [place], [address] Erythrocyte distribution width (RBC) [Ratio] 13.2 % Normal 11.6-14.6 [facility] Comment on above: Performed By: #### L 501.4021, L506.0400, L501.9520, L100.0100, L503.7505, L500.2500 #### [facility] [address] [place], [address] Hematocrit (Bld) [Volume fraction] 41.5 % Normal 40-54 [facility] Comment on above: Performed By: #### L 501.4021, L506.0400, L501.9520, L100.0100, L503.7505, L500.2500 #### [facility] [address] [place], [address] Hemoglobin (Bld) [Mass/Vol] 13.4 g/dL Normal 13.0-16.5 [facility] Comment on above: Performed By: #### L 501.4021, L506.0400, L501.9520, L100.0100, L503.7505, L500.2500 #### [facility] [address] [place], [address] IG% 0.600 Normal 0.0-0.9 [facility] Comment on above: Result Comment: IG% - Immature Granulocytes (promyelocytes, myelocytes and metamyelocytes) > 1% indicates that a LEFT SHIFT is Present. Performed By: #### L 501.4021, L506.0400, L501.9520, L100.0100, L503.7505, L500.2500 #### [facility] [address] [place], [address] Lymphocytes/100 WBC (Bld) 24.3 % Normal 19-41 [facility] Comment on above: Performed By: #### L 501.4021, L506.0400, L501.9520, L100.0100, L503.7505, L500.2500 #### [facility] [address] [place], [address] MCH (RBC) [Entitic mass] 28.3 pg Normal 27.0-32.0 [facility] Comment on above: Performed By: #### L 501.4021, L506.0400, L501.9520, L100.0100, L503.7505, L500.2500 #### [facility] [address] [place], [address] MCHC (RBC) [Mass/Vol] 32.3 g/dL Normal 32-36 [facility] Comment on above: Performed By: #### L 501.4021, L506.0400, L501.9520, L100.0100, L503.7505, L500.2500 #### [facility] [address] [place], [address] MCV (RBC) [Entitic vol] 87.6 fL Normal 80-94 [facility] Comment on above: Performed By: #### L 501.4021, L506.0400, L501.9520, L100.0100, L503.7505, L500.2500 #### [facility] [address] [place], [address] Monocytes/100 WBC (Bld) 8.8 % Normal 0-10 [facility] Comment on above: Performed By: #### L 501.4021, L506.0400, L501.9520, L100.0100, L503.7505, L500.2500 #### [facility] [address] [place], [address] Neutrophils/100 WBC (Bld) 63.1 % Normal 47-70 [facility] Comment on above: Performed By: #### L 501.4021, L506.0400, L501.9520, L100.0100, L503.7505, L500.2500 #### [facility] [address] [place], [address] Nucleated RBC (Bld) [#/Vol] 0 10*3/uL Normal 0-5 [facility] Comment on above: Performed By: #### L 501.4021, L506.0400, L501.9520, L100.0100, L503.7505, L500.2500 #### [facility] [address] [place], [address] Platelet mean volume (Bld) [Entitic vol] 10.1 fL Normal 6.2-12.0 [facility] Comment on above: Performed By: #### L 501.4021, L506.0400, L501.9520, L100.0100, L503.7505, L500.2500 #### [facility] [address] [place], [address] Platelets (Bld) [#/Vol] 330 10*3/uL Normal 150-450 [facility] Comment on above: Performed By: #### L 501.4021, L506.0400, L501.9520, L100.0100, L503.7505, L500.2500 #### [facility] [address] [place], [address] RBC (Bld) [#/Vol] 4.74 10*6/uL Normal 4.6-6.2 [facility] Comment on above: Performed By: #### L 501.4021, L506.0400, L501.9520, L100.0100, L503.7505, L500.2500 #### [facility] [address] [place], [address] RDW SD 42.1 fl Normal 35.1-43.9 [facility] Comment on above: Performed By: #### L 501.4021, L506.0400, L501.9520, L100.0100, L503.7505, L500.2500 #### [facility] [address] [place], [address] WBC (Bld) [#/Vol] 12.3 10*3/uL High 4.4-11.0 [facility] Comment on above: Performed By: #### L 501.4021, L506.0400, L501.9520, L100.0100, L503.7505, L500.2500 #### [facility] [address] [place], [address] CTA Chest W/WO Contrast CTA Chest W/WO Contrast [facility] Imaging Services [address] [place] [address] CTA Chest W/WO Contrast MR#: [id number] Acct: [id number] Name: LATONYA ELDER Rep #: [id number] : 1970 M 54 From: Kj myers MD PCP: Dr. Beka Bowie MD Status: REG ER Study: CTA Chest W/WO Contrast Date of Exam: 09/25/24 Exam# [id number] Ordering Dr: Brennon Mckeon DO [id number] STUDY: CTA CHEST REASON FOR EXAM: [...] Beka Bowie MD; Dr. Brennon Mckeon DO Talent Acquisition Assistant: Signed Normal [facility] Chest PA and Lateralon 09-25 Chest PA and Lateral [facility] Imaging Services [address] [place], [place] [address] Chest PA and Lateral MR#: [id number] Acct: [id number] Name: LATONYA ELDER Rep #: [id number] : 1970 M 54 From: Kj myers MD PCP: Dr. Beka Bowie MD Status: REG ER Study: Chest PA and Lateral Date of Exam: 09/25/24 Exam# [id number] Ordering Dr: Brennon Mckeon DO [id number] STUDY: X-RAY CHEST REASON FOR EXAM: [...] Beka Bowie MD; Dr. Brennon Mckeon DO Talent Acquisition Assistant: Signed Normal [facility] D-Dimer Quantitative (DVT/PE )on 09-25-2024 D-DIMER QUANT 0.80 FEU/ug/m Invalid Interpretation Code 0.27-0.49 [facility] Comment on above: Result Comment: D-Di olvin ELEVATED (>0.49): Additional studies and clinical assessments are indicated to conclude diagnosis of: Deep Vein Thrombosis (DVT) or Pulmonary Embolism (PE) RESULTS CALLED TO [place] 09/25/24 1751 Roya Quiñones. REPORT READ BACK BY SAME. Performed By: #### L 501.4021, L506.0400, L501.9520, L100.0100, L503.7505, L500.2500 #### [facility] [address] [facility] [place], [address] Emergency Department Summary on 09-25-2024 Emergency Department Summary [facility] Medical Records Department [address] [place] [address] Emergency Department Summary 09/25/24 MR#: [id number] Acct: [id number] Name: LATONYA ELDER Rep #: [id number] : 1970 54 From: Brennon Mckeon DO [...] has had some syncopal episodes after coughing. [facility] Medical History Acute sinusitis, unspecified Left shoulder pain Insulin dependent diabetes mellitus Coronary artery disease Essential hypertension Cluster headache Migraine Headache Diabetes Obesity Community acquired pneumonia Smoker Asthma Myocardial infarct Ischemic cardiomyopathy Obesity (BMI 30.0-34.9) Chronic obstructive pulmonary disease (COPD) Nicotine dependence COPD (chronic obstructive pulmonary disease) Hyperlipidemia History of non-ST elevation myocardial infarction (NSTEMI) (11/22/20) Atherosclerosis of ruby coronary artery of ruby heart without angina pectoris Non-ST elevation AR (NSTEMI) Home Medications ???Medication ???Instructions ???Recorded ???Last Taken ???Type aspirin 81 mg chewable tablet 81 mg PO DAILY [facility] 04/27/22 04/27/22 History loratadine 10 mg tablet 10 mg PO DAILY PRN allergies 06/26/22 Unknown History carvedilol 25 mg tablet [facility] 04/24[facility]23 Unknown Rx tabs clonidine HCl [...] of coron (more content not included)... Normal [facility] L501.4020on 09-25-2024 TROPONIN-I HS 85 pg/mL High 3.0-78.0 [facility] Comment on above: Order Comment: 'TROP ' Serial specimen #1, #2 or #3: 2 Result Comment: Colette antunez Note: New Test Units and Gender Specific Reference Ranges. For more information see Policy Stat Procedure [place] High Sensitivity Troponin (TNIH) and attachments. Performed By: #### L 501.4020 #### [facility] [address] [place], [address] TROPONIN-I HS 92 pg/mL High 3.0-78.0 [facility] Comment on above: Order Comment: 'TROP ' Serial specimen #1, #2 or #3: 1 Result Comment: Plea se Note: New Test Units and Gender Specific Reference Ranges. For more information see Policy Stat Procedure [place] High Sensitivity Troponin (TNIH) and attachments. Performed By: #### L 501.4021, L506.0400, L501.9520, L100.0100, L503.7505, L500.2500 #### [facility] [address] [place], [address] M100.678on 09-25-2024 M100.678 Pending SARS-CoV-2 (COVID 19) Negative INFLUENZA A Negative INFLUENZA B Negative RSV PCR Negative Normal [facility] Comment on above: Performed By: #### L 501.4021, L506.0400, L501.9520, L100.0100, L503.7505, L500.2500 #### [facility] [address] [place], [address] Venous Duplex Imag/Cj Extre [facility] 09-25-2024 Venous Duplex Imag/Cj Extrem [facility] Imaging Services [address] [place] [address] Venous Duplex Imag/Cj Extrem MR#: [id number] Acct: [id number] Name: LATONYA ELDER Rep #: [id number] : 1970 M 54 From: Kj myers MD PCP: Dr. Beka Bowie MD Status: DEP ER Study: Venous Duplex Imag/Cj Extrem Date of Exam: Exam# [id number] Ordering Dr: Brennon Mckeon DO ADDENDUM by Dr. Kj Brown MD on 09/25/24 at 2020 [id number] STUDY: VENOUS DOPPLER ULTRASOUND - BILATERAL [...] confirms receipt of the report will follow. [id number] STUDY: VENOUS DOPPLER ULTRASOUND - BILATERAL [...] Femoral Distal (more content not included)... Normal [facility] CNOVon 03-17-2024 CNOV Office Visit (UCWSTR) ---- LATONYA ELDER ([id number]) 1970 M Date Time Provider Department 03/17/24 7:30 AM RAD [facility] During your visit today, we recorded the following information about you: Temperature Pulse Respiration Blood pressure 97.2 degrees 72/minute 16/minute 162/90 Weight 107.9 kg Rad Renee APRN.INFRASTRUCTURE ANALYST 03/17/2024 7:43 AM Signed This note was created using RemitDATA. Subjective Latonya Elder is a 53 year [...] Date Reviewed: 03/17/2024 Reviewed by: Rad Renee APRN.INFRASTRUCTURE ANALYST - Fully Assessed Reason for Visit: Eye [...] as needed (more content not included)... [facility] Basophil percentageOrdered B y: Anupam Zuleta on 02-08-2024 Hemoglobin (Bld) [Mass/Vol] 15.7 g/dL 13.0-16.5 [facility] WBC (Bld) [#/Vol] 10.7 10*3/uL 4.4-11.0 [facility] Determination of erythrocyte mean corpuscular volume (MCV)Ordered By: Anupam Zuleta on 02-08-2024 MCV (RBC) [Entitic vol] 89.9 fL 80-94 [facility] Erythrocyte distribution wid th ratioOrdered By: Anupam Zuleta on 02-08-2024 Erythrocyte distribution width (RBC) [Ratio] 13.7 % 11.6-14.6 [facility] Erythrocyte distribution wid th standard deviationOrdered By: Anupam Zuleta on 02-08-2024 Erythrocyte distribution width (RBC) [Entitic vol] 44.6 fL 35.1-43.9 [facility] Hematocrit Auto (Bld) [Volum e fraction]Ordered By: Anupam Zuleta on 02-08-2024 Hematocrit (Bld) [Volume fraction] 48.3 % 40-54 [facility] - Hematology and Cell countsOrdered By: Anupam Zuleta on 02-08-2024 MCH (RBC) [Entitic mass] 29.2 pg 27.0-32.0 [facility] MCHC (RBC) [Mass/Vol] 32.5 g/dL 32-36 [facility] Platelet mean volume (Bld) [Entitic vol] 10.4 fL 6.2-12.0 [facility] Platelets (Bld) [#/Vol] 270 10*3/uL 150-450 [facility] RBC Auto (Bld) [#/Vol]Ordere d By: Anupam Zuleta on 02-08-2024 RBC (Bld) [#/Vol] 5.37 10*6/uL 4.6-6.2 [facility] Gram stain for investigation of transfusion reactionOrdered By: Anupam Zuleta on 12-31-2023 Microscopic observation Gram stain Nom (Unsp spec) [facility] Microscopic observation Gram stain Nom (Unsp spec) [facility] Microbial respiratory cultur eOrdered By: Anupam Zuleta on 12-31-2023 Bacteria identified Respiratory culture Nom (Unsp spec) or Staphylococcus aureus isolated. [facility] Bacteria identified Respiratory culture Nom (Unsp spec) or Staphylococcus aureus isolated. [facility] Basophil percentageOrdered B y: Luis Villeda on 12-26-2023 Bilirubin [Mass/Vol] 0.90 mg/dL 0.20-1.00 [facility] Comment on above: For patients on eltr ombopag therapy, use of Dimension [place] TBIL is not recommended. Chloride [Moles/Vol] 107 mmol/L 98-107 [facility] Cholesterol [Mass/Vol] 178 mg/dL <200 [facility] Comment on above: <200 mg/dL Desirable 200-240 mg/dL Borderline >240 mg/dL High Risk Glucose [Mass/Vol] 76 mg/dL 74-106 [facility] Hemoglobin (Bld) [Mass/Vol] 15.0 g/dL 13.0-16.5 [facility] Potassium [Moles/Vol] 3.5 mmol/L 3.5-5.1 [facility] Protein [Mass/Vol] 6.9 g/dL 6.4-8.2 [facility] Sodium [Moles/Vol] 138 mmol/L 136-145 [facility] Triglyceride [Mass/Vol] 140 mg/dL <199 [facility] Comment on above: The drugs N-Acetylcy steine and Metamizole may falsely depress this assay.Serum Triglycerides Reference Interval Normal <150 mg/dL Borderline high 150 - 199 mg/dL High 200 - 499 mg/dL Very High > or = 500 mg/dL WBC (Bld) [#/Vol] 11.5 10*3/uL 4.4-11.0 [facility] Determination of erythrocyte mean corpuscular volume (MCV)Ordered By: Luis Villeda on 12-26-2023 MCV (RBC) [Entitic vol] 88.0 fL 80-94 [facility] Erythrocyte distribution wid th ratioOrdered By: Luiskaron Villeda on 12-26-2023 Erythrocyte distribution width (RBC) [Ratio] 13.6 % 11.6-14.6 [facility] Erythrocyte distribution wid th standard deviationOrdered By: Luis Ronal on 12-26-2023 Erythrocyte distribution width (RBC) [Entitic vol] 43.9 fL 35.1-43.9 [facility] Hematocrit Auto (Bld) [Volum e fraction]Ordered By: Luis Ronal on 12-26-2023 Hematocrit (Bld) [Volume fraction] 44.8 % 40-54 [facility] - Chemistry and C hemistry - challengeOrdered By: Luis Villeda on 12-26-2023 Albumin/Globulin [Mass ratio] 1.0 {ratio} 0.9-2.4 [facility] ALP [Catalytic activity/Vol] 107 U/L 45-117 [facility] ALT [Catalytic activity/Vol] 33 U/L 16-61 [facility] Cholesterol in HDL [Mass/Vol] 39 mg/dL >40 [facility] Comment on above: The drugs N-Acetylcy steine and Metamizole may falsely depress this assay. Reference Range HDL <40 mg/dL Low HDL Cholesterol HDL >or= 60 mg/dL High HDL Cholesterol Cholesterol in LDL [Mass/Vol] 111 mg/dL 0-130 [facility] CO2 [Moles/Vol] 23.0 mmol/L 21.0-32.0 [facility] Globulin (S) [Mass/Vol] 3.4 g/dL 2.2-4.2 [facility] Urea nitrogen/Creatinine [Mass ratio] 14.5 mg/mg 10-20 [facility] - Hematology and Cell countsOrdered By: Luis Villeda on 12-26-2023 MCH (RBC) [Entitic mass] 29.5 pg 27.0-32.0 [facility] MCHC (RBC) [Mass/Vol] 33.5 g/dL 32-36 [facility] Platelet mean volume (Bld) [Entitic vol] 10.6 fL 6.2-12.0 [facility] Platelets (Bld) [#/Vol] 235 10*3/uL 150-450 [facility] No Panel InformationOrdered By: Maldonado Whitt on 12-26-2023 D-Dimer Quantitative (PE/DVT) < 0.27 FEU/ug/m 0.27-0.49 [facility] Comment on above: NORMAL D-Dimer level (<0.50) indicates no DVT or PE. No Panel InformationOrdered By: Luis Villeda on 12-26-2023 Estimated Creatinine Clearance Calc 121.06 ml/min [facility] Estimated GFR (MDRD) Amer 125 mL/min >60 [facility] Comment on above: GFR Calc Estimated GFR (MDRD) Non-Af Amer 103 mL/min >60 [facility] Comment on above: Non- GFR Calc VLDL Cholesterol 28 mg/dL 5-40 [facility] No Panel InformationOrdered By: Nasim Leblanc on 12-26-2023 Ethyl Alcohol Level < 3.0 mg/dL [facility] Comment on above: The serum:whole bloo d ethanol ratio is approximately 1.14and varies slightly with hematocrit. Medical Alcohol reference interval and critical value innon-tolerant individuals; 50 - 100 Impairment 100 Intoxication 100 - 250 Severe Poisoning 250 - 400 Deep/possible fatal coma RBC Auto (Bld) [#/Vol]Ordere d By: Luis Villeda on 12-26-2023 RBC (Bld) [#/Vol] 5.09 10*6/uL 4.6-6.2 [facility] Serum or plasma calcium jessica urement (mass/volume)Ordered By: Luis Villeda on 12-26-2023 Calcium [Mass/Vol] 9.4 mg/dL 8.5-10.1 [facility] Serum or plasma creatinine m easurement (mass/volume)Ordered By: Luis Villeda on 12-26-2023 Creatinine [Mass/Vol] 0.83 mg/dL 0.70-1.30 [facility] Comment on above: The validity of the calculated GFR & GFRAA in patients over 70 years has not been determined. Clinical correlation is essential. Serum or plasma urea nitroge n measurement (mass/volume)Ordered By: Luis Villeda on 12-26-2023 Urea nitrogen [Mass/Vol] 12 mg/dL 7-18 [facility] Thin prep Papanicolaou smear with manual screeningOrdered By: Luis Villeda on 12-26-2023 Thin prep Papanicolaou smear with manual screening 3.5 g/dL 3.2-5.0 [facility] Thin prep Papanicolaou smear with manual screening 16 U/L 15-37 [facility] Thin prep Papanicolaou smear with manual screening 8 5-15 [facility] Thin prep Papanicolaou smear with manual screeningOrdered By: Maldonado Whitt on 12-26-2023 Thin prep Papanicolaou smear with manual screening 86 mg/dL 74-106 [facility] Comment on above: MANAGEMENT OF PATIEN T CARE PER NURSING PROTOCOL Absolute lymphocyte countOrd ered By: Mary Lewis on 12-25-2023 Lymphocytes Auto (Unsp spec) [#/Vol] 2.00 10*3/uL 0.83-4.51 [facility] Activated partial thrombopla stin time (aPTT) in platelet poor plasma by coagulation aOrdered By: Mary Lewis on 12-25-2023 aPTT Coag (PPP) [Time] 31.7 s 24.1-36.2 [facility] Automated lymphocyte count a s percentage of total leukocytesOrdered By: Mary Lewis on 12-25-2023 Lymphocytes/100 WBC Auto (Unsp spec) 14.1 % 19-41 [facility] Basophil percentageOrdered B y: Mary Lewis on 12-25-2023 Basophils/100 WBC (Bld) 0.4 % 0-1 [facility] Eosinophils/100 WBC (Bld) 1.0 % 0-5 [facility] Monocytes/100 WBC (Bld) 8.8 % 0-10 [facility] Neutrophils (Bld) [#/Vol] 10.6 10*3/uL 2.0-7.7 [facility] Neutrophils/100 WBC (Bld) 75.1 % 47-70 [facility] Immature granulocytes/100 WB C Auto (Bld)Ordered By: Mary Lewis on 12-25-2023 Immature granulocytes/100 WBC (Bld) 0.600 % 0.0-0.9 [facility] Comment on above: IG% - Immature Granu locytes (promyelocytes, myelocytes and metamyelocytes) > 1% indicates that a LEFT SHIFT is Present. Laboratory - Chemistry and C hemistry - challengeOrdered By: Nasim Leblanc on 12-25-2023 Amylase [Catalytic activity/Vol] 24 U/L 15-85 [facility] Laboratory - Chemistry and C hemistry - challengeOrdered By: Mary Lewis on 12-25-2023 Magnesium [Mass/Vol] 1.8 mg/dL 1.6-2.6 [facility] Laboratory - Hematology and Cell countsOrdered By: Mary Lewis on 12-25-2023 Nucleated RBC/100 WBC (Bld) [Ratio] 0 % 0-5 [facility] No Panel InformationOrdered By: Maldonado Whitt on 12-25-2023 Activated Clotting Time 228 sec 74-137 [facility] Activated Clotting Time 228 sec 74-137 [facility] Serum or plasma thyroid stim ulating hormone (TSH) measurement (units/volume)Ordered By: Mary Lewis on 12-25-2023 TSH Qn 1.74 uIU/mL 0.358-3.74 [facility] Whole blood hemoglobin A1c/t otal hemoglobin ratio (mass fraction)Ordered By: Mary Lewis on 12-25-2023 HbA1c (Bld) [Mass fraction] 7.3 % 3.8-5.6 [facility] Comment on above: Normal < 5.7 % Predi abetic 5.7 - 6.4 % Diabetic >or= 6.5 % Please note range changes. Absolute lymphocyte countOrd ered By: Pollo Bond on 12-24-2023 Lymphocytes Auto (Unsp spec) [#/Vol] 2.44 10*3/uL 0.83-4.51 [facility] Activated partial thrombopla stin time (aPTT) in platelet poor plasma by coagulation aOrdered By: Pollo Bond on 12-24-2023 aPTT Coag (PPP) [Time] 24.7 s 24.1-36.2 [facility] Automated lymphocyte count a s percentage of total leukocytesOrdered By: Pollo Bond on 12-24-2023 Lymphocytes/100 WBC Auto (Unsp spec) 20.4 % 19-41 [facility] Basophil percentageOrdered B y: Pollo Bond on 12-24-2023 Basophils/100 WBC (Bld) 0.7 % 0-1 [facility] Chloride [Moles/Vol] 104 mmol/L 98-107 [facility] Eosinophils/100 WBC (Bld) 0.9 % 0-5 [facility] Glucose [Mass/Vol] 286 mg/dL 74-106 [facility] Comment on above: Glucose result great er than or equal to 200 mg/dLsuggests DIABETES MELLITUS per A.D.A. criteria. Hemoglobin (Bld) [Mass/Vol] 17.3 g/dL 13.0-16.5 [facility] Monocytes/100 WBC (Bld) 10.0 % 0-10 [facility] Neutrophils (Bld) [#/Vol] 8.1 10*3/uL 2.0-7.7 [facility] Neutrophils/100 WBC (Bld) 67.1 % 47-70 [facility] Potassium [Moles/Vol] 3.6 mmol/L 3.5-5.1 [facility] Sodium [Moles/Vol] 141 mmol/L 136-145 [facility] WBC (Bld) [#/Vol] 12.0 10*3/uL 4.4-11.0 [facility] Determination of erythrocyte mean corpuscular volume (MCV)Ordered By: Pollo Bond on 12-24-2023 MCV (RBC) [Entitic vol] 88.3 fL 80-94 [facility] Erythrocyte distribution wid th ratioOrdered By: Pollo Bond on 12-24-2023 Erythrocyte distribution width (RBC) [Ratio] 13.5 % 11.6-14.6 [facility] Erythrocyte distribution wid th standard deviationOrdered By: Pollo Bond on 12-24-2023 Erythrocyte distribution width (RBC) [Entitic vol] 43.1 fL 35.1-43.9 [facility] Hematocrit Auto (Bld) [Volum e fraction]Ordered By: Pollo Bond on 12-24-2023 Hematocrit (Bld) [Volume fraction] 51.4 % 40-54 [facility] Immature granulocytes/100 WB C Auto (Bld)Ordered By: Pollo Bond on 12-24-2023 Immature granulocytes/100 WBC (Bld) 0.900 % 0.0-0.9 [facility] Comment on above: IG% - Immature Granu locytes (promyelocytes, myelocytes and metamyelocytes) > 1% indicates that a LEFT SHIFT is Present. International normalized rat io (INR) calculationOrdered By: Pollo Bond on 12-24-2023 INR Coag (PPP) [Relative time] 0.9 {INR} [facility] Laboratory - Chemistry and C hemistry - challengeOrdered By: Pollo Bond on 12-24-2023 CO2 [Moles/Vol] 28.0 mmol/L 21.0-32.0 [facility] Natriuretic peptide B (Bld) [Mass/Vol] 103.6 pg/mL 0-100 [facility] Urea nitrogen/Creatinine [Mass ratio] 12.4 mg/mg 10-20 [facility] Laboratory - CoagulationOrde red By: Pollo Bond on 12-24-2023 PT Coag (PPP) [Time] 12.0 s 11.7-14.9 [facility] Laboratory - Hematology and Cell countsOrdered By: Pollo Bond on 12-24-2023 MCH (RBC) [Entitic mass] 29.7 pg 27.0-32.0 [facility] MCHC (RBC) [Mass/Vol] 33.7 g/dL 32-36 [facility] Nucleated RBC/100 WBC (Bld) [Ratio] 0 % 0-5 [facility] Platelets (Bld) [#/Vol] 274 10*3/uL 150-450 [facility] No Panel InformationOrdered By: Mary Lewis on 12-24-2023 Troponin I High Sensitivity 387 pg/mL 3.0-78.0 [facility] Comment on above: Critical Result(s) C alled at: 21:25:09 12/24/2023 by: ROSARIO GONZALES TO LUÍS DAWSON. Results read back by same. Please Note: New Test Units and Gender Specific Reference Ranges. For more information see Policy Stat Procedure [place] High Sensitivity Troponin (TNIH) and attachments. No Panel InformationOrdered By: Pollo Bond on 12-24-2023 Troponin I High Sensitivity 280 pg/mL 3.0-78.0 [facility] Comment on above: Critical Result(s) C alled at: 15:17:34 12/24/2023 by: Magda Irving to Moisés. Results read back by same. Please Note: New Test Units and Gender Specific Reference Ranges. For more information see Policy Stat Procedure [place] High Sensitivity Troponin (TNIH) and attachments. D-Dimer Quantitative (PE/DVT) 0.47 FEU/ug/m 0.27-0.49 [facility] Comment on above: NORMAL D-Dimer level (<0.50) indicates no DVT or PE. Estimated GFR (MDRD) Amer 88 mL/min >60 [facility] Comment on above: GFR Calc Estimated GFR (MDRD) Non-Af Amer 72 mL/min >60 [facility] Comment on above: Non- GFR Calc Platelet mean volume James-Ec ker (Bld) [Entitic vol]Ordered By: Pollo Bond on 12-24-2023 Platelet mean volume (Bld) [Entitic vol] 10.9 fL 6.2-12.0 [facility] RBC Auto (Bld) [#/Vol]Ordere d By: Pollo Bond on 12-24-2023 RBC (Bld) [#/Vol] 5.82 10*6/uL 4.6-6.2 [facility] Serum or plasma calcium jessica urement (mass/volume)Ordered By: Pollo Bond on 12-24-2023 Calcium [Mass/Vol] 9.8 mg/dL 8.5-10.1 [facility] Serum or plasma creatinine m easurement (mass/volume)Ordered By: Pollo Bond on 12-24-2023 Creatinine [Mass/Vol] 1.13 mg/dL 0.70-1.30 [facility] Comment on above: The validity of the calculated GFR & GFRAA in patients over 70 years has not been determined. Clinical correlation is essential. Serum or plasma urea nitroge n measurement (mass/volume)Ordered By: Pollo Bond on 12-24-2023 Urea nitrogen [Mass/Vol] 14 mg/dL 7-18 [facility] Thin prep Papanicolaou smear with manual screeningOrdered By: Pollo Bond on 12-24-2023 Thin prep Papanicolaou smear with manual screening 9 5-15 [facility] Absolute lymphocyte countOrd ered By: Luis York on 11-21-2023 Lymphocytes Auto (Unsp spec) [#/Vol] 2.69 10*3/uL 0.83-4.51 [facility] Basophil percentageOrdered B y: Luis York on 11-21-2023 Basophils/100 WBC (Bld) 0.5 % 0-1 [facility] Chloride [Moles/Vol] 107 mmol/L 98-107 [facility] Eosinophils/100 WBC (Bld) 2.0 % 0-5 [facility] Glucose [Mass/Vol] 162 mg/dL 74-106 [facility] Comment on above: Fasting Glucose resu lt greater than or equal to 126 mg/dL suggests DIABETES MELLITUS per A.D.A. criteria. Neutrophils (Bld) [#/Vol] 6.6 10*3/uL 2.0-7.7 [facility] Neutrophils/100 WBC (Bld) 62.0 % 47-70 [facility] Potassium [Moles/Vol] 3.8 mmol/L 3.5-5.1 [facility] Sodium [Moles/Vol] 139 mmol/L 136-145 [facility] WBC (Bld) [#/Vol] 10.7 10*3/uL 4.4-11.0 [facility] Blood erythrocytes count (nu mber/volume)Ordered By: Luis York on 11-21-2023 RBC (Bld) [#/Vol] 4.94 10*6/uL 4.6-6.2 [facility] Blood hemoglobin measurement (mass/volume)Ordered By: Luis York on 11-21-2023 Hemoglobin (Bld) [Mass/Vol] 15.0 g/dL 13.0-16.5 [facility] Blood lymphocytes/100 leukoc ytesOrdered By: Luis York on 11-21-2023 Lymphocytes/100 WBC (Bld) 25.2 % 19-41 [facility] Blood monocytes/100 leukocyt esOrdered By: Luis York on 11-21-2023 Monocytes/100 WBC (Bld) 9.8 % 0-10 [facility] Blood platelet mean volumeOr dered By: Luis York on 11-21-2023 Platelet mean volume (Bld) [Entitic vol] 10.0 fL 6.2-12.0 [facility] Determination of erythrocyte mean corpuscular volume (MCV)Ordered By: Luis York on 11-21-2023 MCV (RBC) [Entitic vol] 88.3 fL 80-94 [facility] Hematocrit Auto (Bld) [Volum e fraction]Ordered By: Luis York on 11-21-2023 Hematocrit (Bld) [Volume fraction] 43.6 % 40-54 [facility] Laboratory - Chemistry and C hemistry - challengeOrdered By: Luis York on 11-21-2023 CO2 [Moles/Vol] 28.0 mmol/L 21.0-32.0 [facility] Urea nitrogen/Creatinine [Mass ratio] 16.7 mg/mg 10-20 [facility] Laboratory - Hematology and Cell countsOrdered By: Luis York on 11-21-2023 Erythrocyte distribution width (RBC) [Entitic vol] 43.4 fL 35.1-43.9 [facility] Erythrocyte distribution width (RBC) [Ratio] 13.3 % 11.6-14.6 [facility] Immature granulocytes/100 WBC (Bld) 0.500 % 0.0-0.9 [facility] Comment on above: IG% - Immature Granu locytes (promyelocytes, myelocytes and metamyelocytes) > 1% indicates that a LEFT SHIFT is Present. MCH (RBC) [Entitic mass] 30.4 pg 27.0-32.0 [facility] Nucleated RBC/100 WBC (Bld) [Ratio] 0 % 0-5 [facility] MCHC Auto (RBC) [Mass/Vol]Or dered By: Luis York on 11-21-2023 MCHC (RBC) [Mass/Vol] 34.4 g/dL 32-36 [facility] No Panel InformationOrdered By: Luis York on 11-21-2023 Troponin I High Sensitivity 40 pg/mL 3.0-78.0 [facility] Comment on above: Please Note: New [place] t Units and Gender Specific Reference Ranges. For more information see Policy Stat Procedure [place] High Sensitivity Troponin (TNIH) and attachments. Estimated Creatinine Clearance Calc 73.33 ml/min [facility] Estimated GFR (MDRD) Amer 87 mL/min >60 [facility] Comment on above: GFR Calc Estimated GFR (MDRD) Non-Af Amer 72 mL/min >60 [facility] Comment on above: Non- GFR Calc Platelets bldOrdered By: Ousmane York on 11-21-2023 Platelets (Bld) [#/Vol] 260 10*3/uL 150-450 [facility] Serum or plasma calcium jessica urement (mass/volume)Ordered By: Luis York on 11-21-2023 Calcium [Mass/Vol] 9.4 mg/dL 8.5-10.1 [facility] Serum or plasma creatinine m easurement (mass/volume)Ordered By: Luis York on 11-21-2023 Creatinine [Mass/Vol] 1.14 mg/dL 0.70-1.30 [facility] Comment on above: The validity of the calculated GFR & GFRAA in patients over 70 years has not been determined. Clinical correlation is essential. Serum or plasma urea nitroge n measurement (mass/volume)Ordered By: Luis York on 11-21-2023 Urea nitrogen [Mass/Vol] 19 mg/dL 7-18 [facility] Thin prep Papanicolaou smear with manual screeningOrdered By: Luis York on 11-21-2023 Thin prep Papanicolaou smear with manual screening 4 5-15 [facility] Absolute lymphocyte counton 06-26-2022 Lymphocytes Auto (Unsp spec) [#/Vol] 3.53 10*3/uL 0.83-4.51 [facility] Work Phone: Lymphocytes Auto (Unsp spec) [#/Vol] 3.42 10*3/uL 0.83-4.51 [facility] Work Phone: Basophil percentageon 06-26- 2021 Basophils/100 WBC (Bld) 0.6 % 0-1 [facility] Work Phone: Bilirubin [Mass/Vol] 0.50 mg/dL 0.20-1.00 [facility] Work Phone: Comment on above: For patients on eltr ombopag therapy, use of Dimension [place] TBIL is not recommended. Chloride [Moles/Vol] 106 mmol/L 98-107 [facility] Work Phone: Eosinophils/100 WBC (Bld) 2.3 % 0-5 [facility] Work Phone: Glucose [Mass/Vol] 157 mg/dL 74-106 [facility] Work Phone: Comment on above: Fasting Glucose resu lt greater than or equal to 126 mg/dL suggests DIABETES MELLITUS per A.D.A. criteria. Neutrophils (Bld) [#/Vol] 7.3 10*3/uL 2.0-7.7 [facility] Work Phone: Neutrophils/100 WBC (Bld) 58.6 % 47-70 [facility] Work Phone: Potassium [Moles/Vol] 4.6 mmol/L 3.5-5.1 [facility] Work Phone: Comment on above: Moderate Hemolysis, Result may be falsely increased. Protein [Mass/Vol] 7.1 g/dL 6.4-8.2 [facility] Work Phone: Sodium [Moles/Vol] 138 mmol/L 136-145 [facility] Work Phone: WBC (Bld) [#/Vol] 12.5 10*3/uL 4.4-11.0 [facility] Work Phone: Basophils/100 WBC (Bld) 0.5 % 0-1 [facility] Work Phone: Chloride [Moles/Vol] 107 mmol/L 98-107 [facility] Work Phone: Eosinophils/100 WBC (Bld) 2.1 % 0-5 [facility] Work Phone: Glucose [Mass/Vol] 186 mg/dL 74-106 [facility] Work Phone: Comment on above: Fasting Glucose resu lt greater than or equal to 126 mg/dL suggests DIABETES MELLITUS per A.D.A. criteria. Neutrophils (Bld) [#/Vol] 8.0 10*3/uL 2.0-7.7 [facility] Work Phone: Neutrophils/100 WBC (Bld) 60.9 % 47-70 [facility] Work Phone: Potassium [Moles/Vol] 3.8 mmol/L 3.5-5.1 [facility] Work [facility]: Sodium [Moles/Vol] 140 mmol/L 136-145 [facility] Work Phone: WBC (Bld) [#/Vol] 13.1 10*3/uL 4.4-11.0 [facility] Work Phone: Blood erythrocytes count (nu mber/volume)on 06-26-2022 RBC (Bld) [#/Vol] 4.86 10*6/uL 4.6-6.2 [facility] Work Phone: RBC (Bld) [#/Vol] 4.94 10*6/uL 4.6-6.2 [facility] Work Phone: Blood hemoglobin measurement (mass/volume)on 06-26-2022 Hemoglobin (Bld) [Mass/Vol] 14.8 g/dL 13.0-16.5 [facility] Work Phone: Hemoglobin (Bld) [Mass/Vol] 15.6 g/dL 13.0-16.5 [facility] Work Phone: Blood lymphocytes/100 leukoc yteson 06-26-2022 Lymphocytes/100 WBC (Bld) 28.3 % 19-41 [facility] Work Phone: [phone] Lymphocytes/100 WBC (Bld) 26.1 % 19-41 [facility] Work Phone: Blood monocytes/100 leukocyt eson 06-26-2022 Monocytes/100 WBC (Bld) 9.6 % 0-10 [facility] Work Phone: [phone] Monocytes/100 WBC (Bld) 9.7 % 0-10 [facility] Work Phone: Blood platelet mean volumeon 06-26-2022 Platelet mean volume (Bld) [Entitic vol] 10.5 fL 6.2-12.0 [facility] Work Phone: [phone] Platelet mean volume (Bld) [Entitic vol] 10.1 fL 6.2-12.0 [facility] Work Phone: [phone] Determination of erythrocyte mean corpuscular volume (MCV)on 06-26-2022 MCV (RBC) [Entitic vol] 90.1 fL 80-94 [facility] Work Phone: [phone] MCV (RBC) [Entitic vol] 89.1 fL 80-94 [facility] Work Phone: [phone] Glucose Glucometer (dC) [M ass/Vol]on 06-26-2022 Glucose [Mass/Vol] 217 mg/dL 74-106 [facility] Work Phone: Comment on above: MANAGEMENT OF PATIEN T CARE PER NURSING PROTOCOL Hematocrit Auto (Bld) [Volum e fraction]on 06-26-2022 Hematocrit (Bld) [Volume fraction] 43.8 % 40-54 [facility] Work Phone: [phone] Hematocrit (Bld) [Volume fraction] 44.0 % 40-54 [facility] Work Phone: INR in Blood by Coagulation assayon 06-26-2022 INR Coag (Bld) [Relative time] 0.9 {INR} [facility] Work Phone: [phone] Laboratory - Chemistry and C hemistry - challengeon 06-26-2022 ALP [Catalytic activity/Vol] 84 U/L 45-117 [facility] Work Phone: [phone] ALT [Catalytic activity/Vol] 22 U/L 16-61 [facility] Work Phone: [phone] CO2 [Moles/Vol] 27.0 mmol/L 21.0-32.0 [facility] Work Phone: Globulin (S) [Mass/Vol] 3.9 g/dL 2.2-4.2 [facility] Work Phone: Urea nitrogen/Creatinine [Mass ratio] 19.6 mg/mg 10- [facility] Work Phone: [phone] CO2 [Moles/Vol] 28.0 mmol/L 21.0-32.0 [facility] Work Phone: [phone] Magnesium [Mass/Vol] 2.1 mg/dL 1.6-2.6 [facility] Work Phone: Urea nitrogen/Creatinine [Mass ratio] 16.5 mg/mg 10-20 [facility] Work Phone: Laboratory - Coagulationon 0 06-26-2022 aPTT Coag (Bld) [Time] 23.9 s 24.1-36.2 [facility] Work Phone: PT Coag (PPP) [Time] 11.8 s 11.7-14.9 [facility] Work Phone: Laboratory - Hematology and Cell countson 06-26-2022 Erythrocyte distribution width (RBC) [Entitic vol] 45.3 fL 35.1-43.9 [facility] Work Phone: Erythrocyte distribution width (RBC) [Ratio] 13.8 % 11.6-14.6 [facility] Work Phone: Immature granulocytes/100 WBC (Bld) 0.600 % 0.0-0.9 [facility] Work Phone: [phone] Comment on above: IG% - Immature Granu locytes (promyelocytes, myelocytes and metamyelocytes) > 1% indicates that a LEFT SHIFT is Present. MCH (RBC) [Entitic mass] 30.5 pg 27.0-32.0 [facility] Work Phone: [phone] Nucleated RBC/100 WBC (Bld) [Ratio] 0 % 0-5 [facility] Work Phone: [phone] Erythrocyte distribution width (RBC) [Entitic vol] 43.9 fL 35.1-43.9 [facility] Work Phone: [phone] Erythrocyte distribution width (RBC) [Ratio] 13.4 % 11.6-14.6 [facility] Work Phone: [phone] Immature granulocytes/100 WBC (Bld) 0.700 % 0.0-0.9 [facility] Work Phone: [phone] Comment on above: IG% - Immature Granu locytes (promyelocytes, myelocytes and metamyelocytes) > 1% indicates that a LEFT SHIFT is Present. MCH (RBC) [Entitic mass] 31.6 pg 27.0-32.0 [facility] Work Phone: [phone] Nucleated RBC/100 WBC (Bld) [Ratio] 0 % 0-5 [facility] Work Phone: [phone] MCHC Auto (RBC) [Mass/Vol]on 06-26-2022 MCHC (RBC) [Mass/Vol] 33.8 g/dL 32-36 [facility] Work Phone: [phone] MCHC (RBC) [Mass/Vol] 35.5 g/dL -36 [facility] Work Phone: [phone] Panel Informationon 06-26 Estimated Creatinine Clearance Calc 98.28 ml/min [facility] Work Phone: [phone] Estimated GFR (MDRD) Amer 119 mL/min >60 [facility] Work Phone: Comment on above: GFR Calc Estimated GFR (MDRD) Non-Af Amer 99 mL/min >60 [facility] Work Phone: Comment on above: Non- GFR Calc Troponin I High Sensitivity 127 pg/mL 3.0-78.0 [facility] Work Phone: Comment on above: Critical Result(s) C alled at: 07:54:30 06/26/2022 by: Magda Melvin. Results read back by same. Please Note: New Test Units and Gender Specific Reference Ranges. For more information see Policy Stat Procedure [place] High Sensitivity Troponin (TNIH) and attachments. Troponin I High Sensitivity 118 pg/mL 3.0-78.0 [facility] Work Phone: Comment on above: Please Note: New [place] t Units and Gender Specific Reference Ranges. For more information see Policy Stat Procedure [place] High Sensitivity Troponin (TNIH) and attachments. Estimated Creatinine Clearance Calc 78.44 ml/min [facility] Work Phone: Estimated GFR (MDRD) Amer 92 mL/min >60 [facility] Work Phone: Comment on above: GFR Calc Estimated GFR (MDRD) Non-Af Amer 76 mL/min >60 [facility] Work Phone: Comment on above: Non- GFR Calc Platelets bldon 06-26-2022 Platelets (Bld) [#/Vol] 239 10*3/uL 150-450 [facility] Work Phone: Platelets (Bld) [#/Vol] 221 10*3/uL 150-450 [facility] Work Phone: [phone] Serum or plasma albumin jessica urement (mass/volume)on 06-26-2022 Albumin [Mass/Vol] 3.2 g/dL 3.2-5.0 [facility] Work Phone: [phone] Serum or plasma albumin/glob ulin mass ratioon 06-26-2022 Albumin/Globulin [Mass ratio] 0.8 {ratio} 0.9-2.4 [facility] Work Phone: Serum or plasma calcium jessica urement (mass/volume)on 06-26-2022 Calcium [Mass/Vol] 8.4 mg/dL 8.5-10.1 [facility] Work Phone: [phone] Calcium [Mass/Vol] 9.2 mg/dL 8.5-10.1 [facility] Work Phone: [phone] Serum or plasma creatinine m easurement (mass/volume)on 06-26-2022 Creatinine [Mass/Vol] 0.87 mg/dL 0.70-1.30 [facility] Work Phone: [phone] Comment on above: The validity of the calculated GFR & GFRAA in patients over 70 years has not been determined. Clinical correlation is essential. Creatinine [Mass/Vol] 1.09 mg/dL 0.70-1.30 [facility] Work Phone: Comment on above: The validity of the calculated GFR & GFRAA in patients over 70 years has not been determined. Clinical correlation is essential. Serum or plasma urea nitroge n measurement (mass/volume)on 06-26-2022 Urea nitrogen [Mass/Vol] 17 mg/dL 7-18 [facility] Work Phone: [phone] Urea nitrogen [Mass/Vol] 18 mg/dL 7-18 [facility] Work Phone: [phone] Thin prep Papanicolaou smear with manual screeningon 06-26-2022 Thin prep Papanicolaou smear with manual screening 31 U/L 15-37 [facility] Work Phone: [phone] Comment on above: Moderate Hemolysis, Result may be falsely increased. Thin prep Papanicolaou smear with manual screening 5 5-15 [facility] Work Phone: [phone] Thin prep Papanicolaou smear with manual screening 5 5-15 [facility] Work Phone: [phone] Absolute lymphocyte counton 04-27-2022 Lymphocytes Auto (Unsp spec) [#/Vol] 3.16 10*3/uL 0.83-4.51 [facility] Work Phone: [phone] Basophil percentageon 2021 Basophils/100 WBC (Bld) 0.3 % 0-1 [facility] Work Phone: Chloride [Moles/Vol] 102 mmol/L 98-107 [facility] Work Phone: Eosinophils/100 WBC (Bld) 1.3 % 0-5 [facility] Work Phone: Glucose [Mass/Vol] 119 mg/dL 74-106 [facility] Work Phone: Comment on above: Fasting Glucose resu lt from 100 to 125 mg/dL suggests IMPAIRED HOMEOSTASIS per A.D.A. criteria. Neutrophils (Bld) [#/Vol] 9.8 10*3/uL 2.0-7.7 [facility] Work Phone: Neutrophils/100 WBC (Bld) 66.9 % 47-70 [facility] Work Phone: Potassium [Moles/Vol] 3.4 mmol/L 3.5-5.1 [facility] Work Phone: Sodium [Moles/Vol] 137 mmol/L 136-145 [facility] Work Phone: WBC (Bld) [#/Vol] 14.6 10*3/uL 4.4-11.0 [facility] Work Phone: Blood erythrocytes count (nu mber/volume)on 04-27-2022 RBC (Bld) [#/Vol] 4.94 10*6/uL 4.6-6.2 [facility] Work Phone: Blood hemoglobin measurement (mass/volume)on 04-27-2022 Hemoglobin (Bld) [Mass/Vol] 14.8 g/dL 13.0-16.5 [facility] Work Phone: Blood lymphocytes/100 leukoc yteson 04-27-2022 Lymphocytes/100 WBC (Bld) 21.6 % 19-41 [facility] Work Phone: Blood monocytes/100 leukocyt eson 04-27-2022 Monocytes/100 WBC (Bld) 9.2 % 0-10 [facility] Work Phone: Blood platelet mean volumeon 04-27-2022 Platelet mean volume (Bld) [Entitic vol] 10.0 fL 6.2-12.0 [facility] Work Phone: Determination of erythrocyte mean corpuscular volume (MCV)on 04-27-2022 MCV (RBC) [Entitic vol] 89.3 fL 80-94 [facility] Work Phone: Glucose Glucometer (BldC) [M ass/Vol]on 04-27-2022 Glucose [Mass/Vol] 110 mg/dL 74-106 [facility] Work Phone: Comment on above: MANAGEMENT OF PATIEN T CARE PER NURSING PROTOCOL Hematocrit Auto (Bld) [Volum e fraction]on 04-27-2022 Hematocrit (Bld) [Volume fraction] 44.1 % 40-54 [facility] Work Phone: INR in Blood by Coagulation assayon 04-27-2022 INR Coag (Bld) [Relative time] 1.0 {INR} [facility] Work Phone: Laboratory - Chemistry and C hemistry - challengeon 04-27-2022 CO2 [Moles/Vol] 30.0 mmol/L 21.0-32.0 [facility] Work Phone: Urea nitrogen/Creatinine [Mass ratio] 16.2 mg/mg 10-20 [facility] Work Phone: Laboratory - Coagulationon 0 04-27-2022 aPTT Coag (Bld) [Time] 24.8 s 24.1-36.2 [facility] Work Phone: PT Coag (PPP) [Time] 12.6 s 11.7-14.9 [facility] Work Phone: Laboratory - Hematology and Cell countson 04-27-2022 Erythrocyte distribution width (RBC) [Entitic vol] 45.2 fL 35.1-43.9 [facility] Work Phone: Erythrocyte distribution width (RBC) [Ratio] 14.0 % 11.6-14.6 [facility] Work Phone: Immature granulocytes/100 WBC (Bld) 0.700 % 0.0-0.9 [facility] Work Phone: Comment on above: IG% - Immature Granu locytes (promyelocytes, myelocytes and metamyelocytes) > 1% indicates that a LEFT SHIFT is Present. MCH (RBC) [Entitic mass] 30.0 pg 27.0-32.0 [facility] Work Phone: Nucleated RBC/100 WBC (Bld) [Ratio] 0 % 0-5 [facility] Work Phone: MCHC Auto (RBC) [Mass/Vol]on 04-27-2022 MCHC (RBC) [Mass/Vol] 33.6 g/dL 32-36 [facility] Work Phone: No Panel Informationon 04-27 Troponin I High Sensitivity 79 pg/mL 3.0-78.0 [facility] Work Phone: Comment on above: Please Note: New Sirisha t Units and Gender Specific Reference Ranges. For more information see Policy Stat Procedure [place] High Sensitivity Troponin (TNIH) and attachments. Estimated Creatinine Clearance Calc 86.36 ml/min [facility] Work Phone: Estimated GFR (MDRD) Amer 103 mL/min >60 [facility] Work Phone: [phone] Comment on above: GFR Calc Estimated GFR (MDRD) Non-Af Amer 85 mL/min >60 [facility] Work Phone: Comment on above: Non- GFR Calc Troponin I High Sensitivity 81 pg/mL 3.0-78.0 [facility] Work Phone: Comment on above: Please Note: New Sirisha t Units and Gender Specific Reference Ranges. For more information see Policy Stat Procedure [place] High Sensitivity Troponin (TNIH) and attachments. Platelets bldon 04-27-2022 Platelets (Bld) [#/Vol] 270 10*3/uL 150-450 [facility] Work Phone: Serum or plasma calcium jessica urement (mass/volume)on 04-27-2022 Calcium [Mass/Vol] 9.1 mg/dL 8.5-10.1 [facility] Work Phone: Serum or plasma creatinine m easurement (mass/volume)on 04-27-2022 Creatinine [Mass/Vol] 0.99 mg/dL 0.70-1.30 [facility] Work Phone: Comment on above: The validity of the calculated GFR & GFRAA in patients over 70 years has not been determined. Clinical correlation is essential. Serum or plasma urea nitroge n measurement (mass/volume)on 04-27-2022 Urea nitrogen [Mass/Vol] 16 mg/dL 7-18 [facility] Work Phone: Thin prep Papanicolaou smear with manual screeningon 04-27-2022 Thin prep Papanicolaou smear with manual screening 5 5-15 [facility] Work Phone: Laboratory - Hematology and Cell countson 03-30-2022 HbA1c (Bld) [Mass fraction] 6.1 % 4.2-6.3 [facility] Work Phone: Laboratory - Hematology and Cell countson 02-15-2022 HbA1c (Bld) [Mass fraction] 6.0 % [facility] Work Phone: Basophil percentageon 2021 Bilirubin [Mass/Vol] 0.30 mg/dL 0.20-1.00 [facility] Work Phone: Comment on above: For patients on eltr ombopag therapy, use of Dimension [place] TBIL is not recommended. Cholesterol [Mass/Vol] 125 mg/dL <200 [facility] Work Phone: Comment on above: <200 mg/dL Desirable 200-240 mg/dL Borderline >240 mg/dL High Risk Protein [Mass/Vol] 7.5 g/dL 6.4-8.2 [facility] Work Phone: Triglyceride [Mass/Vol] 68 mg/dL [facility] Work Phone: Comment on above: The drugs N-Acetylcy steine and Metamizole may falsely depress this assay.Serum Triglycerides Reference Interval Normal <150 mg/dL Borderline high 150 - 199 mg/dL High 200 - 499 mg/dL Very High > or = 500 mg/dL Direct bilirubinon Bilirubin.direct [Mass/Vol] 0.11 mg/dL 0.00-0.30 [facility] Work Phone: Laboratory - Chemistry and C hemistry - challengeon 01-18-2022 ALP [Catalytic activity/Vol] 89 U/L 45-117 [facility] Work Phone: ALT [Catalytic activity/Vol] 21 U/L 16-61 [facility] Work Phone: Globulin (S) [Mass/Vol] 4.0 g/dL 2.2-4.2 [facility] Work Phone: Serum or plasma albumin jessica urement (mass/volume)on 01-18-2022 Albumin [Mass/Vol] 3.5 g/dL 3.2-5.0 [facility] Work Phone: Serum or plasma cholesterol in HDL measurement (mass/volume)on 01-18-2022 Cholesterol in HDL [Mass/Vol] 41 mg/dL [facility] Work Phone: Comment on above: The drugs N-Acetylcy steine and Metamizole may falsely depress this assay. Reference Range HDL <40 mg/dL Low HDL Cholesterol HDL >or= 60 mg/dL High HDL Cholesterol Serum or plasma cholesterol in VLDL measurement (mass/volume)on 01-18-2022 Cholesterol in VLDL [Mass/Vol] 14 mg/dL 5-40 [facility] Work Phone: Serum or plasma low density lipoprotein (LDL) cholesterol measurement (mass/volume)on 01-18-2022 Cholesterol in LDL [Mass/Vol] 70 mg/dL 0-130 [facility] Work Phone: [phone] Thin prep Papanicolaou smear with manual screeningon 01-18-2022 Thin prep Papanicolaou smear with manual screening 12 U/L 15-37 [facility] Work Phone: Office Visit: Stephen 07-17-20 Dietary management education, guidance, and counseling (procedure) yes Invalid Interpretation Code [facility] Work Phone: [phone] Documentation of current medications (procedure) Done Invalid Interpretation Code [facility] Work Phone: [phone] Fall risk assessment No Invalid Interpretation Code [facility] Work Phone: [phone] Protein mass conc Done [facility] Work Phone: [phone] Lab Report: Basic Metabolic Profile (BMP)on 04-27-2017 Anion gap 4 mmol/L Low 5-15 [facility] Work Phone: [phone] Anion gap molar conc 4 mmol/L Low 5-15 [facility] Work Phone: [phone] BUN/Creatinine Ratio 14.3 RATIO Invalid Interpretation Code 10-20 [facility] Work Phone: [phone] Calcium 9.0 mg/dL Invalid Interpretation Code 8.5-10.1 [facility] Work Phone: [phone] Chloride 106 mmol/L Invalid Interpretation Code 98-107 [facility] Work Phone: [phone] CO2 32.0 mmol/L Invalid Interpretation Code 21.0-32.0 [facility] Work Phone: [phone] CO2 ppres (BldV) 32.0 mmol/L 21.0-32.[address] [facility] Work Phone: [phone] Creatinine 1.12 mg/dL Invalid Interpretation Code 0.70-1.[address] [facility] Work Phone: [phone] eGFR (non-black) 91 mL/min/{1.73_m2} Invalid Interpretation Code >[address] [facility] Work Phone: [phone] eGFR (non-black) 75 mL/min/{1.73_m2} Invalid Interpretation Code >[address] [facility] Work Phone: [phone] EST GFR - AA 91 mL/min >[address] [facility] Work Phone: [phone] Glucose 101 mg/dL Invalid Interpretation Code 70-110 [facility] Work Phone: [phone] Glucose mass conc 101 mg/dL 70-110 [facility] Work Phone: [phone] Potassium 4.5 mmol/L Invalid Interpretation Code 3.5-5.1 [facility] Work Phone: [phone] Sodium 142 mmol/L Invalid Interpretation Code 136-145 [facility] Work Phone: [phone] Urea nitrogen 16 mg/dL Invalid Interpretation Code 7-18 [facility] Work Phone: [phone] Lab Report: Lipid Profileon 04-27-2017 Cholesterol 135 mg/dL Invalid Interpretation Code 200 [facility] Work Phone: [phone] HDL Cholesterol 35 mg/dL Low [facility] Work Phone: [phone] LDL Cholesterol 81 mg/dL Invalid Interpretation Code 0-130 [facility] Work Phone: [phone] Triglyceride 97 mg/dL Invalid Interpretation Code [facility] Work Phone: [phone] very low density lipoproteins 19 mg/dL Invalid Interpretation Code 5-40 [facility] Work Phone: [phone] Lab Report: Liver Profileon 04-27-2017 Alanine aminotransferase (ALT) 56 U/L Invalid Interpretation Code 12-78 [facility] Work Phone: [phone] Albumin 3.7 g/dL Invalid Interpretation Code 3.4-5.0 [facility] Phone: [phone] Alkaline phosphatase (ALP) 100 U/L Invalid Interpretation Code 45-117 [facility] Work Phone: [phone] ALP enzyme act/vol (Bld) 100 U/L 45-117 [facility] Work Phone: [phone] Aspartate aminotransferase (AST) 17 U/L Invalid Interpretation Code 15-37 [facility] Work Phone: [phone] Bilirubin (direct) 0.13 mg/dL Invalid Interpretation Code 0.00-0.30 [facility] Work Phone: [phone] Bilirubin (total) 0.70 mg/dL Invalid Interpretation Code 0.20-1.00 [facility] Work Phone: [phone] Globulin 3.6 g/dL High 2.3-3.5 [facility] Work Phone: [phone] Globulin mass conc (S) 3.6 g/dL High 2.3-3.5 [facility] Work Phone: [phone] Protein 7.3 g/dL Invalid Interpretation Code 6.4-8.2 [facility] Work Phone: [phone] Office Visiton 04-27-2017 Dietary management education, guidance, and counseling (procedure) yes Invalid Interpretation Code [facility] Work Phone: [phone] Documentation of current medications (procedure) Done Invalid Interpretation Code [facility] Work Phone: [phone] Fall risk assessment No Invalid Interpretation Code [facility] Work Phone: [phone] Protein mass conc yes [facility] Work Phone: [phone] Smoking cessation education (procedure) yes Invalid Interpretation Code [facility] Work Phone: [phone] Tobacco smoking status NHIS Current every day smoker [facility] Work Phone: [phone] Tobacco use CPHS Current every day smoker Invalid Interpretation Code [facility] Work Phone: [phone] Office Visiton 02-06-2017 Documentation of current medications (procedure) Done Invalid Interpretation Code [facility] Work Phone: [phone] Fall risk assessment No Invalid Interpretation Code [facility] Work Phone: [phone] Replaced Document: Olya Villela Observationson 02-06-2017 EKG QRS axis 2 deg [facility] Work Phone: [phone] electrocardiogram interpretation 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 ABNORMAL [facility] Work Phone: [phone] P [place] 54 deg [facility] Work Phone: [phone] P wave axis, electrocardiogram 54 deg Invalid Interpretation Code [facility] Work Phone: [phone] [place] Interval 160 ms [facility] Work Phone: [phone] [place] interval, electrocardiogram 160 ms Invalid Interpretation Code [facility] Work Phone: [phone] Pulse (Heart Rate) 89 /min Invalid Interpretation Code [facility] Work Phone: [phone] QRS axis, electrocardiogram 2 deg Invalid Interpretation Code [facility] Work Phone: [phone] QRS Duration 96 ms [facility] Work Phone: [phone] QRS duration, electrocardiogram 96 ms Invalid Interpretation Code [facility] Work Phone: [phone] QT Interval new path ms [facility] Work Phone: [phone] QT interval, electrocardiogram new path ms Invalid Interpretation Code [facility] Work Phone: [phone] QTc [place] 396 ms [facility] Work Phone: [phone] T [place] 26 deg [facility] Work Phone: [phone] T wave axis, electrocardiogram 26 deg Invalid Interpretation Code [facility] Work Phone: [phone] Office Visiton 12-27-2016 Smoking cessation education (procedure) yes Invalid Interpretation Code [facility] Work Phone: [phone] Tobacco smoking status NHIS Current every day smoker [facility] Work Phone: [phone] Tobacco use CPHS Current every day smoker Invalid Interpretation Code [facility] Work Phone: [phone] Clinical 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 12-22-2016 Left ventricular Ejection fraction 60 % Invalid Interpretation Code [facility] Work Phone: [phone] Clinical 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 Beka Bowie MD Work Phone: [facility] 02-11-2025 13:05-0400 Heart rate 91 /min Dr. Beka Bowie MD Work Phone: [facility] 02-11-2025 13:00-0400 Diastolic blood pressure 120 mm[Hg] Dr. Beka Bowie MD Work Phone: [facility] 02-11-2025 13:00-0400 Respiratory rate 20 /min Dr. Beka Bowie MD Work Phone: [facility] 02-11-2025 13:00-0400 SaO2% (BldA) [Mass fraction] 97 % Dr. Beka Bowie MD Work Phone: [facility] 02-11-2025 13:00-0400 Systolic blood pressure 182 mm[Hg] Dr. Beka Bowie MD Work Phone: [facility] 02-11-2025 12:00-0400 Body temperature 98.2 [degF] Dr. Beka Bowie MD Work Phone: [facility] 02-11-2025 09:26-0400 Inhaled oxygen flow rate 2 L/min Dr. Beka Bowei MD Work Phone: [facility] 02-11-2025 09:17-0400 Body height 172.[address] Beka Bowie MD Work Phone: [facility] 02-11-2025 09:17-0400 Body weight 107.[address] Beka Bowie MD Work Phone: [facility] 02-11-2025 00:00-0400 Diastolic blood pressure 111 mm[Hg] Dr. Beka Bowie MD Work Phone: [facility] 02-11-2025 00:00-0400 Heart rate 101 /min Dr. Beka Bowie MD Work Phone: [facility] 02-11-2025 00:00-0400 Respiratory rate 21 /min Dr. Beka Bowie MD Work Phone: [facility] 02-11-2025 00:00-0400 SaO2% (BldA) [Mass fraction] 95 % Dr. Beka Bowie MD Work Phone: [facility] 02-11-2025 00:00-0400 Systolic blood pressure 174 mm[Hg] Dr. Beka Bowie MD Work Phone: [facility] 02-10-2025 23:33-0400 Body temperature 98.7 [degF] Dr. Beka Bowie MD Work Phone: [facility] 02-10-2025 18:13-0400 Body height 172.[address] Beka Bowie MD Work Phone: [facility] 02-10-2025 18:13-0400 Body mass index (BMI) [Ratio] 36.3 kg/m2 Dr. Beka Bowie MD Work Phone: [facility] 02-10-2025 18:13-0400 Body weight 108.[address] Beka Bowie MD Work Phone: [facility] 03-17-2024 07:29-0400 Body temperature 97.2 [degF] Rad [employer] FINANCIAL REPORTING CONSULTANT.INFRASTRUCTURE ANALYST Work Phone: [facility] 03-17-2024 07:29-0400 Body weight 107.9 kg Rad Moomaw FINANCIAL REPORTING CONSULTANT.INFRASTRUCTURE ANALYST Work Phone: [facility] 03-17-2024 07:29-0400 Diastolic blood pressure 90 mm[Hg] Rad Moomaw FINANCIAL REPORTING CONSULTANT.INFRASTRUCTURE ANALYST Work Phone: [facility] 03-17-2024 07:29-0400 Heart rate 72 /min Rad Moomaw FINANCIAL REPORTING CONSULTANT.INFRASTRUCTURE ANALYST Work Phone: [facility] 03-17-2024 07:29-0400 Respiratory rate 16 /min Rad Moom[place] FINANCIAL REPORTING CONSULTANT.INFRASTRUCTURE ANALYST Work Phone: [facility] 03-17-2024 07:29-0400 SaO2% (BldA) [Mass fraction] 98 % Rad Moomaw FINANCIAL REPORTING CONSULTANT.INFRASTRUCTURE ANALYST Work Phone: [facility] 03-17-2024 07:29-0400 Systolic blood pressure 162 mm[Hg] Rad Moomaw FINANCIAL REPORTING CONSULTANT.INFRASTRUCTURE ANALYST Work Phone: [facility] 01-31-2024 16:49-0400 Body height 172.[address] Beka Bowie Work Phone: [facility] 01-31-2024 16:49-0400 Body mass index (BMI) [Ratio] 35.1 kg/m2 Dr. Beka Bowie Work Phone: [facility] 01-31-2024 16:49-0400 Body temperature 98.1 [degF] Dr. Beka Bowie Work Phone: [facility] 01-31-2024 16:49-0400 Body weight 104.[address] Beka Bowie Work Phone: [facility] 01-31-2024 16:49-0400 Diastolic blood pressure 90 mm[Hg] Dr. Beka Bowie Work Phone: [facility] 01-31-2024 16:49-0400 Heart rate 91 /min Dr. Beka Bowie Work Phone: [facility] 01-31-2024 16:49-0400 Respiratory rate 20 /min Dr. Beka Bowie Work Phone: [facility] 01-31-2024 16:49-0400 SaO2% (BldA) [Mass fraction] 95 % Dr. Beka Bowie Work Phone: [facility] 01-31-2024 16:49-0400 Systolic blood pressure 134 mm[Hg] Dr. Beka Bowie Work Phone: [facility] 01-15-2024 08:57-0500 Body mass index (BMI) [Ratio] 35.4 kg/m2 Dr. Beka Bowie Work Phone: [facility] 01-15-2024 08:57-0500 Body weight 105.[address] Beka Bowie Work Phone: [facility] 01-15-2024 08:57-0500 Diastolic blood pressure 83 mm[Hg] Dr. Beka Bowie Work Phone: [facility] 01-15-2024 08:57-0500 Heart rate 80 /min Dr. Beka Bowie Work Phone: [facility] 01-15-2024 08:57-0500 Respiratory rate 18 /min Dr. Beka Bowie Work Phone: [facility] 01-15-2024 08:57-0500 SaO2% (BldA) [Mass fraction] 94 % Dr. Beka Bowie Work Phone: [facility] 01-15-2024 08:57-0500 Systolic blood pressure 134 mm[Hg] Dr. Beka Bowie Work Phone: [facility] 12-28-2023 11:13-0500 Body height 172.[address] eBka Bowie Work Phone: [facility] 12-28-2023 11:13-0500 Body mass index (BMI) [Ratio] 33.9 kg/m2 Dr. Beka Bowie Work Phone: [facility] 12-28-2023 11:13-0500 Body temperature 96.8 [degF] Dr. Beka Bowie Work Phone: [facility] 12-28-2023 11:13-0500 Body weight 101.[address] Beka Bowie Work Phone: [facility] 12-28-2023 11:13-0500 Diastolic blood pressure 90 mm[Hg] Dr. Beka Bowie Work Phone: [facility] 12-28-2023 11:13-0500 Heart rate 75 /min Dr. Beka Bowie Work Phone: [facility] 12-28-2023 11:13-0500 Respiratory rate 18 /min Dr. Beka Bowie Work Phone: [facility] 12-28-2023 11:13-0500 SaO2% (BldA) [Mass fraction] 95 % Dr. Beka Bowie Work Phone: [facility] 12-28-2023 11:13-0500 Systolic blood pressure 176 mm[Hg] Dr. Beka Bowie Work Phone: [facility] 12-26-2023 08:00-0500 Body temperature 98.5 [degF] Dr. Beka Bowie Work Phone: [facility] 12-26-2023 08:00-0500 Diastolic blood pressure 74 mm[Hg] Dr. Beka Bowie Work Phone: [facility] 12-26-2023 08:00-0500 Heart rate 80 /min Dr. Beka Bowie Work Phone: [facility] 12-26-2023 08:00-0500 Respiratory rate 14 /min Dr. Beka Bowie Work Phone: [facility] 12-26-2023 08:00-0500 SaO2% (BldA) [Mass fraction] 96 % Dr. Beka Bowie Work Phone: [facility] 12-26-2023 08:00-0500 Systolic blood pressure 181 mm[Hg] Dr. Beka Bowie Work Phone: [facility] 12-26-2023 07:35-0500 Inhaled oxygen flow rate 2 L/min Dr. Beka Bowie Work Phone: [facility] 12-24-2023 16:28-0500 Body height 172.[address] Beka Bowie Work Phone: [facility] 12-24-2023 16:28-0500 Body mass index (BMI) [Ratio] 34.4 kg/m2 Dr. Beka Bowie Work Phone: [facility] 12-24-2023 16:28-0500 Body weight 102.[address] Beka Bowie Work Phone: [facility] 12-24-2023 15:25-0500 Body temperature 96 [degF] Dr. Beka Bowie Work Phone: [facility] 12-24-2023 15:25-0500 Diastolic blood pressure 108 mm[Hg] Dr. Beka Bowie Work Phone: [facility] 12-24-2023 15:25-0500 Heart rate 100 /min Dr. Beka Bowie Work Phone: [facility] 12-24-2023 15:25-0500 Respiratory rate 20 /min Dr. Beka Bowie Work Phone: [facility] 12-24-2023 15:25-0500 SaO2% (BldA) [Mass fraction] 96 % Dr. Beka Bowie Work Phone: [facility] 12-24-2023 15:25-0500 Systolic blood pressure 212 mm[Hg] Dr. Beka Bowie Work Phone: [facility] 12-24-2023 15:09-0500 Body mass index (BMI) [Ratio] 35.5 kg/m2 Dr. Beka Bowie Work Phone: [facility] 12-24-2023 15:09-0500 Body weight 106.[address] Beka Bowie Work Phone: [facility] 12-24-2023 12:19-0500 Body height 172.[address] Beka Bowie Work Phone: [facility] 12-06-2023 15:15-0500 Body height 172.[address] Beka Bowie Work Phone: [facility] 12-06-2023 15:15-0500 Body mass index (BMI) [Ratio] 35.4 kg/m2 Dr. Beka Bowie Work Phone: [facility] 12-06-2023 15:15-0500 Body temperature 98.3 [degF] Dr. Beka Bowie Work Phone: [facility] 12-06-2023 15:15-0500 Body weight 105.[address] Beka Bowie Work Phone: [facility] 12-06-2023 15:15-0500 Diastolic blood pressure 102 mm[Hg] Dr. Beka Bowie Work Phone: [facility] 12-06-2023 15:15-0500 Heart rate 83 /min Dr. Beka Bowie Work Phone: [facility] 12-06-2023 15:15-0500 Respiratory rate 18 /min Dr. Beka Bowie Work Phone: [facility] 12-06-2023 15:15-0500 SaO2% (BldA) [Mass fraction] 97 % Dr. Beka Bowie Work Phone: [facility] 12-06-2023 15:15-0500 Systolic blood pressure 154 mm[Hg] Dr. Beka Bowie Work Phone: [facility] 11-21-2023 10:41-0500 Diastolic blood pressure 77 mm[Hg] [facility] 11-21-2023 10:41-0500 Heart rate 71 /min [facility] 11-21-2023 10:41-0500 Respiratory rate 18 /min [facility] 11-21-2023 10:41-0500 SaO2% (BldA) [Mass fraction] 97 % [facility] 11-21-2023 10:41-0500 Systolic blood pressure 133 mm[Hg] [facility] 11-21-2023 06:38-0500 Body height 172.72 cm [facility] 11-21-2023 06:38-0500 Body mass index (BMI) [Ratio] 35.2 kg/m2 [facility] 11-21-2023 06:38-0500 Body temperature 97 [degF] [facility] 11-21-2023 06:38-0500 Body weight 104.9 kg [facility] 06-26-2022 13:25-0400 Diastolic blood pressure 92 mm[Hg] Dr. Beka Bowie Work Phone: [facility] Work Phone: 06-26-2022 13:25-0400 Heart rate 75 /min Dr. Beka Bowie Work Phone: [facility] Work Phone: 06-26-2022 13:25-0400 Respiratory rate 16 /min Dr. Beka Bowie Work Phone: [facility] Work Phone: 06-26-2022 13:25-0400 SaO2% (BldA) [Mass fraction] 95 % Dr. Beka oBwie Work Phone: [facility] Work Phone: 06-26-2022 13:25-0400 Systolic blood pressure 159 mm[Hg] Dr. Beka Bowie Work Phone: [facility] Work Phone: 06-26-2022 12:00-0400 Body temperature 98.1 [degF] Dr. Beka Bowie Work Phone: [facility] Work Phone: 06-26-2022 09:12-0400 Body height 172.[address] Beka Bowie Work Phone: [facility] Work Phone: 06-26-2022 09:12-0400 Body weight 101.[address] Beka Bowie Work Phone: [facility] Work Phone: 06-26-2022 04:53-0400 Body mass index (BMI) [Ratio] 34 kg/m2 Dr. Beka Bowie Work Phone: [facility] Work Phone: 06-26-2022 04:16-0400 Diastolic blood pressure 120 mm[Hg] Dr. Beka Bowie Work Phone: [facility] Work Phone: 06-26-2022 04:16-0400 Heart rate 89 /min Dr. Beka Bowie Work Phone: [facility] Work Phone: 06-26-2022 04:16-0400 Systolic blood pressure 198 mm[Hg] Dr. Beka Bowie Work Phone: [facility] Work Phone: 06-26-2022 04:15-0400 Body temperature 98.7 [degF] Dr. Beka Bowie Work Phone: [facility] Work Phone: 06-26-2022 04:15-0400 Respiratory rate 19 /min Dr. Beka Bowie Work Phone: [facility] Work Phone: 06-26-2022 04:15-0400 SaO2% (BldA) [Mass fraction] 91 % Dr. Beka Bowie Work Phone: [facility] [facility] Work Phone: 06-26-2022 01:03-0400 Body height 172.[address] Beka Bowie Work Phone: [facility] Work Phone: 06-26-2022 01:03-0400 Body mass index (BMI) [Ratio] 34 kg/m2 Dr. Beka Bowie Work Phone: [facility] Work Phone: 06-26-2022 01:03-0400 Body weight 101.[address] Beka Bowie Work Phone: [facility] Work Phone: 06-08-2022 16:11-0400 Body height 172.[address] Beka Bowie Work Phone: [facility] Work Phone: 06-08-2022 16:11-0400 Body mass index (BMI) [Ratio] 32.1 kg/m2 Dr. Beka Bowie Work Phone: [facility] Work Phone: 06-08-2022 16:11-0400 Body temperature 97.1 [degF] Dr. Beka Bowie Work Phone: [facility] Work Phone: 06-08-2022 16:11-0400 Body weight 95.[address] Beka Bowie Work Phone: [facility] Work Phone: 06-08-2022 16:11-0400 Diastolic blood pressure 90 mm[Hg] Dr. Beka Bowie Work Phone: [facility] Work Phone: 06-08-2022 16:11-0400 Heart rate 82 /min Dr. Beka Bowie Work Phone: [facility] Work Phone: 06-08-2022 16:11-0400 Respiratory rate 15 /min Dr. Beka Bowie Work Phone: [facility] Work Phone: 06-08-2022 16:11-0400 SaO2% (BldA) [Mass fraction] 95 % Dr. Beka Bowie Work Phone: [facility] Work Phone: 06-08-2022 16:11-0400 Systolic blood pressure 140 mm[Hg] Dr. Beka Bowie Work Phone: [facility] Work Phone: 06-05-2022 11:27-0400 Body mass index (BMI) [Ratio] 33 kg/m2 Dr. Beka Bowie Work Phone: [facility] Work Phone: 06-05-2022 11:27-0400 Body weight 98.[address] Beka Bowie Work Phone: [facility] Work Phone: 06-05-2022 11:27-0400 Diastolic blood pressure 110 mm[Hg] Dr. Beka Bowie Work Phone: [facility] Work Phone: 06-05-2022 11:27-0400 Heart rate 80 /min Dr. Beka Bowie Work Phone: [facility] Work Phone: 06-05-2022 11:27-0400 Systolic blood pressure 160 mm[Hg] Dr. Beka Bowie Work Phone: [facility] Work Phone: 04-27-2022 14:15-0400 Diastolic blood pressure 91 mm[Hg] Dr. Beka Bowie Work Phone: [facility] Work Phone: 04-27-2022 14:15-0400 Heart rate 85 /min Dr. Beka Bowie Work Phone: [facility] Work Phone: 04-27-2022 14:15-0400 Respiratory rate 16 /min Dr. Beka Bowie Work Phone: [facility] Work Phone: 04-27-2022 14:15-0400 SaO2% (BldA) [Mass fraction] 94 % Dr. Beka Bowie Work Phone: [facility] Work Phone: 04-27-2022 14:15-0400 Systolic blood pressure 159 mm[Hg] Dr. Beka Bowie Work Phone: [facility] Work Phone: 04-27-2022 13:30-0400 Diastolic blood pressure 95 mm[Hg] Dr. Beka Bowie Work Phone: [facility] Work Phone: 04-27-2022 13:30-0400 Heart rate 81 /min Dr. Beka Bowie Work Phone: [facility] Work Phone: 04-27-2022 13:30-0400 Respiratory rate 16 /min Dr. Beka Bowie Work Phone: [facility] Work Phone: 04-27-2022 13:30-0400 SaO2% (BldA) [Mass fraction] 96 % Dr. Beka Bowie Work Phone: [facility] Work Phone: 04-27-2022 13:30-0400 Systolic blood pressure 167 mm[Hg] Dr. Beka Bowie Work Phone: [facility] Work Phone: 04-27-2022 09:45-0400 Body temperature 98 [degF] Dr. Beka Bowie Work Phone: [facility] Work Phone: 04-27-2022 09:42-0400 Body height 172.[address] Beka Bowie Work Phone: [facility] Work Phone: 04-27-2022 09:42-0400 Body mass index (BMI) [Ratio] 32.1 kg/m2 Dr. Beka Bowie Work Phone: [facility] Work Phone: 04-27-2022 09:42-0400 Body weight 95.[address] Beka Bowie Work Phone: [facility] Work Phone: 04-27-2022 09:03-0400 Diastolic blood pressure 104 mm[Hg] Dr. Beka Bowie Work Phone: [facility] Work Phone: 04-27-2022 09:03-0400 Systolic blood pressure 134 mm[Hg] Dr. Beka Bowie Work Phone: [facility] Work Phone: 04-27-2022 08:49-0400 Body temperature 97.9 [degF] Dr. Beka Bowie Work Phone: [facility] Work Phone: 04-27-2022 08:49-0400 Heart rate 68 /min Dr. Beka Bowie Work Phone: [facility] Work Phone: 04-27-2022 08:49-0400 Respiratory rate 16 /min Dr. Beka Bowie Work Phone: [facility] Work Phone: 04-27-2022 08:49-0400 SaO2% (BldA) [Mass fraction] 94 % Dr. Beka Bowie Work Phone: [facility] Work Phone: 04-27-2022 07:11-0400 Body height 172.[address] Beka Bowie Work Phone: [facility] Work Phone: 04-27-2022 07:11-0400 Body mass index (BMI) [Ratio] 32.8 kg/m2 Dr. Beka Bowie Work Phone: [facility] Work Phone: 04-27-2022 07:11-0400 Body weight 97.[address] Beka Bowie Work Phone: [facility] Work Phone: 03-30-2022 15:33-0400 Body mass index (BMI) [Ratio] 32.5 kg/m2 Dr. Beka Bowie Work Phone: [facility] Work Phone: 03-30-2022 15:33-0400 Body temperature 96.6 [degF] Dr. Beka Bowie Work Phone: [facility] Work Phone: 03-30-2022 15:33-0400 Body weight 97.[address] Beka Bowie Work Phone: [facility] Work Phone: 03-30-2022 15:33-0400 Diastolic blood pressure 84 mm[Hg] Dr. Beka Bowie Work Phone: [facility] Work Phone: 03-30-2022 15:33-0400 Heart rate 75 /min Dr. Beka Bowie Work Phone: [facility] Work Phone: 03-30-2022 15:33-0400 Respiratory rate 16 /min Dr. Beka Bowie Work Phone: [facility] Work Phone: 03-30-2022 15:33-0400 SaO2% (BldA) [Mass fraction] 95 % Dr. Beka Bowie Work Phone: [facility] Work Phone: 03-30-2022 15:33-0400 Systolic blood pressure 130 mm[Hg] Dr. Beka Bowie Work Phone: [facility] Work Phone: 03-30-2022 15:33-0400 Body mass index (BMI) [Ratio] 32.5 kg/m2 Dr. Beka Bowie Work Phone: [facility] Work Phone: 03-30-2022 15:33-0400 Body temperature 96.6 [degF] Dr. Beka Bowie Work Phone: [facility] Work Phone: 03-30-2022 15:33-0400 Body weight 97.[address] Beka Bowie Work Phone: [facility] Work Phone: 03-30-2022 15:33-0400 Diastolic blood pressure 84 mm[Hg] Dr. Beka Bowie Work Phone: [facility] Work Phone: 03-30-2022 15:33-0400 Heart rate 75 /min Dr. Beka Bowie Work Phone: [facility] Work Phone: 03-30-2022 15:33-0400 Respiratory rate 16 /min Dr. Beka Bowie Work Phone: [facility] Work Phone: 03-30-2022 15:33-0400 SaO2% (BldA) [Mass fraction] 95 % Dr. Beka Bowie Work Phone: [facility] Work Phone: 03-30-2022 15:33-0400 Systolic blood pressure 130 mm[Hg] Dr. Beka Bowie Work Phone: [facility] Work Phone: 02-15-2022 16:08-0400 Body mass index (BMI) [Ratio] 32.9 kg/m2 Dr. Beka Bowie Work Phone: [facility] Work Phone: 02-15-2022 16:08-0400 Body temperature 98.2 [degF] Dr. Beka Bowie Work Phone: [facility] Work Phone: 02-15-2022 16:08-0400 Body weight 98.[address] Beka Bowie Work Phone: [facility] Work Phone: 02-15-2022 16:08-0400 Diastolic blood pressure 82 mm[Hg] Dr. Beka Bowie Work Phone: [facility] Work Phone: 02-15-2022 16:08-0400 Heart rate 79 /min Dr. Beka Bowie Work Phone: [facility] Work Phone: 02-15-2022 16:08-0400 Respiratory rate 18 /min Dr. Beka Bowie Work Phone: [facility] Work Phone: 02-15-2022 16:08-0400 SaO2% (BldA) [Mass fraction] 96 % Dr. Beka Bowie Work Phone: [facility] Work Phone: 02-15-2022 16:08-0400 Systolic blood pressure 162 mm[Hg] Dr. Beka Bowie Work Phone: [facility] Work Phone: 01-13-2022 14:23-0500 Body mass index (BMI) [Ratio] 31.6 kg/m2 Dr. Beka Bowie Work Phone: [facility] Work Phone: 01-13-2022 14:18-0500 Body weight 94.[address] Beka Bowie Work Phone: [facility] Work Phone: 01-13-2022 14:18-0500 Diastolic blood pressure 90 mm[Hg] Dr. Beka Bowie Work Phone: [facility] Work Phone: 01-13-2022 14:18-0500 Heart rate 86 /min Dr. Beka Bowie Work Phone: [facility] Work Phone: 01-13-2022 14:18-0500 Respiratory rate 18 /min Dr. Beka Bowie Work Phone: [facility] Work Phone: 01-13-2022 14:18-0500 SaO2% (BldA) [Mass fraction] 95 % Dr. Beka Bowie Work Phone: [facility] Work Phone: 01-13-2022 14:18-0500 Systolic blood pressure 158 mm[Hg] Dr. Beka Bowie Work Phone: [facility] Work Phone: 07-17-2017 10:05-0400 BMI (Body Mass Index) 31.81 kg/m2 MD [facility] Work Phone: 07-17-2017 10:05-0400 BP Diastolic 100 mm[Hg] Eric Flores MD [facility] Work Phone: 07-17-2017 10:05-0400 BP Systolic 158 mm[Hg] Eric Flores MD [facility] Work Phone: 07-17-2017 10:05-0400 Height 172.72 cm Eric Flores MD [facility] Work Phone: 07-17-2017 10:05-0400 Pulse (Heart Rate) 72 /min Eric Flores MD [facility] Work Phone: 07-17-2017 10:05-0400 Respiratory Rate 20 /min Eric Flores MD [facility] Work Phone: 07-17-2017 10:05-0400 Weight 94.92 kg Eric Flores MD [facility] Work Phone: 04-27-2017 09:15-0400 BMI (Body Mass Index) 34.97 kg/m2 MD [facility] Work Phone: 04-27-2017 09:15-0400 BP Diastolic 104 mm[Hg] MD [facility] Work Phone: 04-27-2017 09:15-0400 BP Systolic 178 mm[Hg] Eric Flores MD [facility] Work Phone: 04-27-2017 09:15-0400 Height [...] Pulse (Heart Rate) 88 /min Harumi DeFinis [facility] Work Phone: 02-06-2017 14:17-0400 Pulse Oximetry 98 % Harumi DeFinis [facility] Work Phone: 02-06-2017 14:17-0400 Respiratory Rate 24 /min Harumi DeFinis [facility] Work Phone: 02-06-2017 14:17-0400 Weight 102.6 kg Eric Flores MD [facility] Work Phone: 12-27-2016 09:07-0500 BSA (Body Surface Area) 2.12 m2 Harumi DeFinallan [facility] Work Phone: Encounters Encounter Date Encounter Type Care Provider Facility Start: 02-19-2025 ambulatory Beka Bowie Bayi ty:[facility] Start: 02-11-2025 ambulatory Eric Flores Facility:[facility] Start: 02-11-2025 Non-patient / Non-[facility] Start: 02-11-2025 ambulatory Mitchell Deras Facili ty:[facility] Start: 02-11-2025 Non-patient / Non-visit Dr. Brennon shen [facility] Work Phone: Start: 02-11-2025 ambulatory Federico Calabash Facility:[facility] Start: 02-11-2025 End: 02-11-2025 Evaluation and management of inpatient Dr. Mitchell Deras DO -Intensive Care Unit Work Phone: Start: 10-12-2024 End: 10-12-2024 ambulatory Mukulchico Riddletika Facility:[facility] Start: 10-11-2024 ambulatory Mitchell Diazi ty:[facility] Start: 10-11-2024 End: 10-13-2024 Evaluation and management of inpatient Mitchell Deras Facility:[facility] Start: 09-25-2024 End: 09-25-2024 Emergency department patient visit [facility] Venkateshtika Facility:[facility] Start: 04-07-2024 ambulatory Beka Venkateshtika Bayi ty:[facility] Start: 03-17-2024 End: 03-17-2024 ambulatory Facility:[facility] Start: 03-17-2024 End: 03-17-2024 Patient encounter procedure Rad Darelljosé FINANCIAL REPORTING CONSULTANT.INFRASTRUCTURE ANALYST Work Phone: [facility] Comment on above: Bacterial conjunctiv itis (Primary Dx) Start: 02-08-2024 End: 02-08-[address] Beka Bowie Work Phone: [facility] Work Phone: Start: 02-08-2024 End: 02-08-[address] Beka Bowie Work Phone: [facility]-Laboratory Work Phone: Start: 01-31-2024 End: 01-31-[address] Beka Bowie Work Phone: [facility] Work Phone: Start: 01-15-2024 End: 01-15-[address] Beka Bowie Work Phone: [facility] Work Phone: Start: 12-31-2023 End: 12-31-[address] Beka Bowie Work Phone: [facility] Work Phone: Start: 12-31-2023 End: 12-31-[address] Beka Bowie Work Phone: [facility]-Laboratory Work Phone: Start: 12-28-2023 End: 12-28-[address] Beka Bowie Work Phone: [facility] Work Phone: Start: 12-26-2023 Non-patient / Non-visit Dr. Mukul Bowie Work Phone: [facility] Start: 12-25-2023 Non-patient / Non-visit Dr. Mukul Bowie Work Phone: [facility] Work Phone: Start: 12-25-2023 Non-patient / Non-visit Dr. Mukul Bowie Work Phone: [facility] Start: 12-24-2023 End: 12-26-2023 Evaluation and management of inpatient Dr. Beka Bowie Work Phone: [facility]-Progressive Care Unit Work Phone: Start: 12-24-2023 Non-patient / Non-visit Dr. Mukul Bowie Work Phone: [facility] Work Phone: Start: 12-12-2023 Non-patient / Non-visit Dr. Mukul Bowie Work Phone: [facility] Work Phone: Start: 12-11-2023 Non-patient / Non-visit Dr. Mukul Bowie Work Phone: [facility] Start: 12-11-2023 End: 12-11-[address] Beka Bowie Work Phone: [facility] Work Phone: Start: 12-11-2023 End: 12-11-[address] [facility] Start: 12-06-2023 End: 12-06-[address] Beka Bowie Work Phone: [facility] Work Phone: Start: 11-21-2023 End: 11-21-2023 [facility] Start: 06-26-2022 Non-patient / Non-visit Dr. Mukul Bowie Work Phone: [facility] Start: 06-26-2022 Non-patient / Non-visit Dr. Mukul Bowie Work Phone: [facility] Start: 06-26-2022 End: 06-26-2022 Evaluation and management of inpatient Dr. Beka Bowie Work Phone: [facility]-Intensive Care Unit Start: 06-15-2022 End: 06-15-[address] Beka Bowie Work Phone: [facility]-Radiology, [facility] Start: 06-08-2022 End: 06-08-[address] Beka Bowie Work Phone: [facility] Start: 06-05-2022 End: 06-05-[address] Beka Bowie Work Phone: [facility] Start: 04-27-2022 Non-patient / Non-visit Dr. Mukul Bowie Work Phone: [facility] Start: 04-27-2022 End: 04-27-2022 Evaluation and management of inpatient [facility]ek[facility] Bow[facility] Start: 04-27-2022 Evaluation and manag ement of inpatient Dr. Bek[facility] Bowie [facility] Start: 03-30-2022 End: 03-30-[address] Beka Bowie Work Phone: [facility] Start: 02-15-2022 End: 02-15-[address] Beka Bowie Work Phone: [facility] Start: 01-18-2022 End: 01-18-[address] Beka Bowie Work Phone: [facility]-Laboratory, Specimen Start: 01-17-2022 Non-patient / Non-visit Dr. Mukul Bowie Work Phone: [facility] Start: 01-17-2022 End: 01-17-[address] Beka Bowie Work Phone: [facility]-Cardiovascular Services Start: 01-13-2022 End: 01-13-[address] Beka Bowie Work Phone: [facility] Procedures Date Procedure Procedure [...] x 16 mm Synergy MR Stent 03/18/2020; [id number] w/ 3.0 x 12 mm Synergy Stent and WAN-Prox RCA w/ 3.5 x 20 MM Synergy Stent 11/22/2020; WAN mid LAD w/3.0 X 24 MM Synergy MR Stent 11/18/2021, WAN Prox LAD using [place] 3.0x12 mm and WAN Prox OM1 using [employer] [place] 2.5x18 mm 12/25/23 Start: 12-24-2023 Plain chest [...] Activity Detail Author Start: 02-11-2025 Patient discharge [facility] Start: 02-11-2025 Vitamin D, 1,25-dihydroxy measurement [facility] Start: 02-11-2025 Following clinical pathway protocol [facility] Start: 02-11-2025 Aspiration precautions [facility] Start: 02-11-2025 Cardiac monitoring [facility] Start: 02-11-2025 Catheterization of vein [facility] Start: 02-11-2025 Consultation [facility] Start: 02-11-2025 Continuous pulse oximetry [facility] Start: 02-11-2025 Elevation of head of bed [facility] Start: 02-11-2025 Exercises [facility] Start: 02-11-2025 Notification of physician [facility] Start: 02-11-2025 Oxygen therapy [facility] Start: 02-11-2025 Patient referral to dietitian [facility] Start: 02-11-2025 Referral to occupational therapist [facility] Start: 02-11-2025 Referral to service [facility] Start: 02-11-2025 Speech therapy assessment [facility] Start: 02-11-2025 Telemedicine consultation with patient [facility] Start: 02-11-2025 Tobacco use cessation education [facility] Start: 02-11-2025 End: 02-11-2025 [facility] Start: 02-11-2025 Vital signs measurements [facility] Start: 02-11-2025 MRI of brain with contrast Brain WITH Contrast [facility] Start: 02-11-2025 Thyroid stimulating hormone measurement [facility] Start: 02-11-2025 Vitamin D, 1,25-dihydroxy measurement [facility] Start: 02-11-2025 Admission procedure [facility] Start: 02-11-2025 Inhalation therapy procedure [facility] Start: 02-10-2025 [facility] Start: 07-20-2024 Influenza vaccination Influenza Vaccine (Season Ended) [facility] Start: 12-28-2023 Electrocardiographic procedure [facility] Start: 12-27-2023 Electrocardiographic procedure [facility] Start: 12-26-2023 Electrocardiographic procedure [facility] Start: 12-26-2023 Patient discharge [facility] Start: 12-26-2023 [facility] Start: 12-25-2023 Care planning and problem solving actions [facility] Start: 12-25-2023 Care planning and problem solving actions [facility] Start: 12-25-2023 Ambulation without limitation [facility] Start: 12-25-2023 Pulse taking [facility] Start: 12-25-2023 Cardiac monitoring [facility] Start: 12-25-2023 Cardiac rehabilitation - phase 1 [facility] Start: 12-25-2023 Cardiac rehabilitation - phase 2 [facility] Start: 12-25-2023 Notification of physician [facility] Start: 12-25-2023 Oxygen therapy [facility] Start: 12-25-2023 Patient discharge [facility] Start: 12-25-2023 Systemic arterial pressure monitoring [facility] Start: 12-25-2023 Taking patient vital signs [facility] Start: 12-25-2023 Vascular disease risk assessment [facility] Start: 12-25-2023 Vital signs measurements [facility] Start: 12-25-2023 End: 12-25-2023 [facility] Start: 12-25-2023 Patient referral [facility] Work Phone: Start: 12-25-2023 Continuous pulse oximetry [facility] Start: 12-25-2023 Preoperative care [facility] Start: 12-25-2023 Catheterization of vein [facility] Start: 12-25-2023 Medication not administered [facility] Start: 12-25-2023 Notification of physician [facility] Start: 12-25-2023 [facility] Start: 12-25-2023 Thyroid stimulating hormone measurement [facility] Start: 12-25-2023 [facility] Start: 12-24-2023 Following clinical pathway protocol [facility] Start: 12-24-2023 Care planning and problem solving actions [facility] Start: 12-24-2023 Assessment of risk of venous thromboembolism [facility] Start: 12-24-2023 Care regimes management [facility] Start: 12-24-2023 Electrocardiographic procedure [facility] Start: 12-24-2023 Inhalation therapy procedure [facility] Start: 12-24-2023 Insertion of catheter into peripheral vein [facility] Start: 12-24-2023 Measuring intake and output [facility] Start: 12-24-2023 Notification of physician [facility] Start: 12-24-2023 Oxygen therapy [facility] Start: 12-24-2023 Providing care according to standard [facility] Start: 12-24-2023 Provision of activity privileges [facility] Start: 12-24-2023 Referral to configuration technician [facility] Start: 12-24-2023 Tobacco use cessation education [facility] Start: 12-24-2023 [facility] Start: 12-24-2023 Verification routine [facility] Start: 12-24-2023 Admission procedure [facility] Start: 11-21-2023 [facility] Start: 11-21-2023 End: 11-21-2023 [facility] Start: 11-19-2023 Behavioral Health Screening Behavioral Health Screening [facility] Start: 07-20-2023 Covid-19 Vaccine () Covid-19 Vaccine () [facility] Start: 06-26-2022 Patient discharge [facility] Work Phone: Start: 06-26-2022 Partial thromboplastin time, activated [facility] Work Phone: Start: 06-26-2022 [facility] Work Phone: Start: 06-26-2022 Following clinical pathway protocol [facility] Work Phone: Start: 06-26-2022 Assessment of risk of venous thromboembolism [facility] Work Phone: Start: 06-26-2022 Care regimes management [facility] Work Phone: Start: 06-26-2022 Catheterization of vein [facility] Work Phone: Start: 06-26-2022 Elevation of head of bed [facility] Work Phone: Start: 06-26-2022 Inhalation therapy procedure [facility] Work Phone: Start: 06-26-2022 Insertion of catheter into peripheral vein [facility] Work Phone: Start: 06-26-2022 Measuring intake and output [facility] Work Phone: Start: 06-26-2022 Providing care according to standard [facility] Work Phone: Start: 06-26-2022 Vital signs measurements [facility] Work Phone: Start: 06-26-2022 [facility] Work Phone: Start: 06-26-2022 Admission procedure [facility] Work Phone: Start: 04-27-2022 Lipid panel Lipid Screening [facility] Start: 04-27-2022 End: 04-27-2022 Patient discharge [facility] Work Phone: Start: 04-27-2022 Cardiac monitoring [facility] Work Phone: Start: 04-27-2022 Cardiac rehabilitation - phase 1 [facility] Work Phone: Start: 04-27-2022 Notification of physician [facility] Work Phone: Start: 04-27-2022 Oxygen therapy [facility] Work Phone: Start: 04-27-2022 Systemic arterial pressure monitoring [facility] Work Phone: Start: 04-27-2022 Taking patient vital signs [facility] Work Phone: Start: 04-27-2022 Vascular disease risk assessment [facility] Work Phone: Start: 04-27-2022 Vital signs measurements [facility] Work Phone: Start: 04-27-2022 [facility] Work Phone: Start: 04-27-2022 Assessment of risk of venous thromboembolism [facility] Work Phone: Start: 04-27-2022 Insertion of catheter into peripheral vein [facility] Work Phone: Start: 04-27-2022 Measuring intake and output [facility] Work Phone: Start: 04-27-2022 Providing care according to standard [facility] Work Phone: Start: 04-27-2022 Provision of activity privileges [facility] Work Phone: Start: 04-27-2022 Tobacco use cessation education [facility] Work Phone: Start: 04-27-2022 [facility] [facility] Work Phone: Start: 04-27-2022 End: 04-27-2022 Referral to configuration technician [facility] Work Phone: Start: 04-27-2022 Admission procedure [facility] Work Phone: Start: 04-27-2022 Following clinical pathway protocol [facility] Work Phone: Start: 2021 Shingrix Vaccine (1 of 2) Shingrix Vaccine (1 of 2) [facility] Start: 11-09-2017 End: 11-09-2017 Appointment Appointment [facility] Work Phone: Start: 10-29-2017 End: 05-03-2017 *Hepatic Function Panel *Hepatic Function Panel [facility] Work Phone: Start: 10-29-2017 End: 05-03-2017 Lipid panel [AGGREGATE] *Lipid Profile CC PCP [facility] Work Phone: Start: 07-17-2017 End: 07-17-2017 Appointment Appointment [facility] Phone: Start: 07-13-2017 End: 07-13-2017 Appointment Appointment [facility] Work Phone: Start: 04-27-2017 End: 04-27-2017 Appointment Appointment [facility] Work Phone: Start: 04-27-2017 End: 04-27-2017 *BMP *BMP [facility] Work Phone: Start: 04-27-2017 End: 04-27-2017 *Hepatic Function Panel *Hepatic Function Panel [facility] [employer] Phone: Start: 04-27-2017 End: 04-27-2017 Follow Up Appt 6 months Follow Up Appt 6 months [facility] Work Phone: Start: 04-27-2017 End: 04-27-2017 Lipid panel [AGGREGATE] *Lipid Profile CC PCP [facility] Work Phone: Start: 04-27-2017 End: 04-27-2017 MMM MMM [facility] Work Phone: Start: 02-06-2017 End: 02-06-2017 Electrocardiogram, complete EKG (In office) [facility] Work Phone: Start: 02-06-2017 End: 02-06-2017 Follow Up Appt 3 months Follow Up Appt 3 months [facility] Work Phone: Start: 02-06-2017 End: 02-06-2017 MMM MMM [facility] Work Phone: Start: 12-27-2016 End: 12-27-2016 *Hepatic Function Panel *Hepatic Function Panel [facility] Work Phone: Start: 12-27-2016 End: 12-27-2016 Follow Up Appt 4 months Follow Up Appt 4 months [facility] Work Phone: Start: 12-27-2016 End: 12-27-2016 Lipid 1996 panel *Lipid Profile CC [facility]CP [facility] Work Phone: Start: 12-27-2016 End: 12-27-2016 MMM MMM [facility] Work Phone: Start: 2016 Diabetes Screening Diabetes Screening [facility] Start: 2016 Screening for malignant neoplasm of colon [facility] Start: 1990 Hepatitis B Vaccine (1 of 3 - 19+ 3-dose series) Hepatitis B Vaccine (1 of 3 - 19+ 3-dose series) [facility] Start: 1990 Urine microalbumin profile DTaP,Tdap,Td Vaccine (1 - Tdap) [facility] Start: 1989 Annual PCP Team Chronic Disease Visit Annual PCP Team Chronic Disease Visit [facility] Start: 1989 BP Controlled (<130/80) BP Controlled (<130/80) [facility] Start: 1989 Hepatitis C screening Hepatitis C Screening [facility] Start: 1989 HIV screening HIV Screening [facility] Start: 1977 Pneumococcal vaccination Pneumococcal Vaccine (1 of 2 - PCV) [facility] Alanine aminotransfe rase [Enzymatic activity/volume] in Serum or Plasma [facility] Albumin [Mass/volume ] in Serum or Plasma [facility] Alkaline phosphatase [Enzymatic activity/volume] in Serum or Plasma [facility] Amphetamine [Mass/vo lume] in Urine [facility] Amphetamines [Presen ce] in Urine by Screen method >1000 ng/mL [facility] Anion gap measurement [facility] Aspartate aminotrans ferase [Enzymatic activity/volume] in Serum or Plasma [facility] Benzodiazepine measu rement, urine [facility] Benzodiazepine measu rement, urine [facility] Bilirubin, total measurement [facility] BUN/Creatinine ratio [facility] Calcium [Mass/volume ] in Serum or Plasma [facility] Carbon dioxide, tota l [Moles/volume] in Serum or Plasma [facility] Cardiac event recording [facility] Chloride [Moles/volu me] in Serum or Plasma [facility] Cholesterol [Mass/vo lume] in Serum or Plasma [facility] Cholesterol [Mass/vo lume] in Serum or Plasma [facility] Cholesterol in HDL [Mass/volume] in Serum or Plasma [facility] Cholesterol in HDL [Mass/volume] in Serum or Plasma [facility] Cholesterol in LDL [Mass/volume] in Serum or Plasma [facility] Cobalamin (Vitamin B 12) [Mass/volume] in Serum or Plasma [facility] Cocaine measurement, urine [facility] Cocaine measurement, urine [facility] Creatinine [Moles/vo lume] in Serum or Plasma [facility] Erythrocyte mean cor puscular volume determination [facility] Ethanol [Mass/volume ] in Serum or Plasma [facility] fentaNYL [Presence] in Urine by Screen method [facility] Folate [Moles/volume ] in Serum or Plasma [facility] Glucose [Mass/volume ] in Serum or Plasma [facility] Hematocrit [Volume F raction] of Blood [facility] Hemoglobin [Mass/vol ume] in Blood [facility] Hemoglobin A1c/Hemoglobin.total in Blood [facility] Hemoglobin A1c/Hemoglobin.total in Blood [facility] Leukocytes [#/volume] in Blood [facility] Low density lipoprot ein cholesterol measurement [facility] Magnesium [Mass/volu me] in Serum or Plasma [facility] Mean corpuscular hem oglobin concentration determination [facility] Mean corpuscular hem oglobin determination [facility] Measurement of 3,4-methylenedioxymethamphetam ine in urine [facility] Measurement of renal function [facility] Methadone measurement, urine [facility] Methadone measurement, urine [facility] Neutrophil count [facility] Neutrophil percent differential count [facility] Partial thromboplast in time, activated [facility] Work Phone: Patient Education [facility] Work Phone: Patient referral [facility] Work Phone: pH of Urine [facility] Phencyclidine [Prese nce] in Urine [facility] Phencyclidine [Prese nce] in Urine [facility] Platelets [#/volume] in Blood [facility] Potassium [Moles/vol ume] in Serum or Plasma [facility] Red blood cell count [facility] Red cell distributio n width determination [facility] Sodium [Moles/volume ] in Serum or Plasma [facility] Total cholesterol:HD L ratio measurement [facility] Total protein measurement [facility] Triglycerides measurement [facility] Triglycerides measurement [facility] Urea nitrogen [Mass/ volume] in Serum or Plasma [facility] Urine barbiturate measurement [facility] Urine cannabinoid measurement [facility] Urine cannabinoid measurement [facility] Urine opiate measurement [facility] Urine opiate measurement [facility] Vitamin D, 25-hydrox y measurement [facility] VLDL cholesterol measurement [facility] VLDL cholesterol measurement [facility] Payers Date Payer Category Payer Self-pay [id number] 2019 Unknown [id number] 2019 Unknown MMO MMO [employer]PER[employer] PPO [id number] 2019-Present [phone] [address] [place] [address] PPO [id number] Medicaid MEDICAID [id number] Private Health Insurance [facility] [id number] Unknown [id number] 62 Unknown [id number] [id number] 62 Unknown [id number] 2.16.840.1.469795.3.579.2.4 62 Unknown [id number] 2.16.840.1.471512.3.579.2.4 62 Unknown [id number] 2.16.840.1.435851.3.579.2.4 62 Unknown [id number] 2.16.840.1.757589.3.579.2.4 62 Unknown [id number] 2.16.840.1.233582.3.579.2.4 62 Unknown [id number] 2.16.840.1.731017.3.579.2.4 62 Unknown [id number] 2.16.840.1.515613.3.579.2.4 62 Unknown [id number] 2.16.840.1.202945.3.579.2.4 62 Unknown [id number] 2.16.840.1.123660.3.579.2.4 62 Unknown [id number] 2.16.840.1.102319.3.579.2.4 62 Unknown [id number] 2.16.840.1.161315.3.579.2.4 62 Unknown [id number] 2.16.840.1.511313.3.579.2.4 62 Unknown [id number] 2.16.840.1.769057.3.579.2.4 62 Social History Date Type Detail Facility Start: 04-27-2022 End: 01-31-2024 Tobacco smoking status NHIS Unknown if ever smoked [facility] Start: 12-31-2020 Rare [facility] Start: 12-31-2020 None [facility] Start: 01-21-2021 Spouse/ Signif icant Other [facility] Start: 01-21-2021 Cigarettes [facility] Start: 1970 Sex Assigned At Male [facility] Start: 03-17-2024 End: 02-11-2025 Tobacco smoking status NHIS Smokes tobacco daily [facility] Start: 03-17-2024 Tobacco use and exposure Smokeless tobacco non-user [facility] Start: 03-17-2024 Alcohol intake Not Asked [facility] Start: 10-27-2020 End: 03-17-2024 History of Social function [facility] Start: 10-27-2020 End: 03-17-2024 Tobacco use panel [facility] National Score (1-100), lower number is lower risk Not on file [facility] Start: 1970 Sex Assigned At Not on file [facility] Start: 02-11-2025 End: 02-11-2025 Sex Male (finding) [facility] Medical Equipment Procedure Code Equipment Code Equipment Origin al Text Equipment Identifier Dates ([id number]) Drug-eluting coronary artery stent, bioabsorbable-polyme r-coated ()[id number] FDA Start: 11-18-2021 Pen Needle, Diab etic (Bd Ultra-Fine Tomasa Pen Needle) 32 gauge x 5/32 needle Start: 05-27-2021 Drug-eluting coronary artery stent, nfl-wqcjofznlpgzp-lb lymer-coated ()[id number] FDA Start: 12-25-2023 Drug-eluting coronary artery stent, hns-vfbhybfybqkct-wh lymer-coated ()[id number] FDA Start: 12-25-2023 Goals Date Patient Goal Desired Activity /State Functional Status Date Assessment Result Facility 02-11-2025 Functional status Chair [facility] Work Phone: 12-26-2023 Functional status Dangle [facility]et [facility] Work Phone: 06-26-2022 Functional status Chair [facility] Work Phone: 04-27-2022 Functional status Ambulates [facility] Work Phone: Mental Status Date Assessment Result Facility 02-11-2025 Cognitive function Voice/Name [facility] Work Phone: 02-10-2025 Cognitive function Appropriate;Cooperativ e [facility] Work Phone: 12-26-2023 Cognitive function Voice/Name [facility] Work Phone: 12-24-2023 [facility] Work Phone: 11-21-2023 Cognitive function Voice[facility]Name [facility] Work Phone: 06-26-2022 Cognitive function Voice/Name [facility] Work Phone: 06-26-2022 Cognitive function Voice/Name [facility] Work Phone: 04-27-2022 Cognitive function Voice/Name [facility] Work Phone: 04-27-2022 Cognitive function Voice/Name [facility] Work Phone: Clinical Notes 11-21-2023 to 02-11-2025 Note Date & Type Note Facility 02-11-2025 Discharge summary [facility] 02-11-2025 Note [facility] Medical Records Department [address] [place] [address] Discharge Summary 02/11/25 1421 MR#: [id number] Acct: [id number] Name: LATONYA ELDER Rep #: [id number] : 1970 54 From: Brennon Juarez DO PCP: Dr. Beka Bowie MD Status:ADM IN Location: ICU [id number] Providers Date of Admission: 02/11/25 Primary Care [...] note (formal note not yet available in [facility]) who advised to give ASA and clopidogrel [...] seen the patient on 10/12 for a ELECTRICAL INSTALLATION INSPECTOR for coughing fit then led to a [...] mg chewable tablet 81 mg PO DAILY [facility] 04/27/22 loratadine 10 mg tablet [...] 25 mg tablet 25 mg PO BIDCM [facility] #180 tabs 10/27/24 clonidine HCl [...] with slurred speec (more content not included)... [facility] 02-11-2025 Progress note [facility] 02-11-2025 Progress note Note Date/Time February 11, 2025 2:21pm [facility] Medical Records Department [address] [place] [address] Progress Note - Hospitalist 02/11/25 0656 MR#: [id number] Acct: [id number] Name: LATONYA ELDER Rep #:[id number] : 1970 54 From: Brennon Juarez DO [...] % (Auto) 61.8, Lymph % (Auto) 25.5, Obion % (Auto) 9.2, Eos % (Auto) 2.4, [...] are new since prior examination. Reading Location: [id number] Brain CT 02/10/25 18:31 IMPRESSION: 1.9 by [...] 8:00 pm with readback verification. Reading Location: [facility] Head/Neck CTA 02/10/25 18:31 IMPRESSION: 1. [...] note (formal note not yet available in [facility]) who advised to give ASA and clopidogrel [...] presentation of CVA, can resume home medications: , carvedilol 25 BID, clonidine 0.1 BID, furosemide 60 daily, lisinopril 20 BID, isosorbide 60 BID Add PRN hydralazine Continue previous home medications. I had seen the patient on 10/12 for a ELECTRICAL INSTALLATION INSPECTOR for coughing fit then led to a [...] Cosigner Signature (if applicable): CC: ~ Signed [facility] Work Phone: 1(626) 936-776503-26-2025 History and physical note Author Mitchell Lucero [facility] Note Date/Time February 11, 2025 6:4 2am [facility] Medical Records Department [address] [place] [address] H&P Exam - Hospitalist 02/10/25 2311 MR#: [id number] Acct: [id number] Name: LATONYA ELDER Rep #:[id number] : 1970 54 From: Mitchell Marr DO [...] troponin and Respiratory Insufficiency who presents to [facility] ER complaining of who presents to [facility] ER complaining of slurred speech and brain fog since Saturday, February 08, 2025. Mr. Elder and his significant other reported that his symptoms have been azajid-lzy-dybcvt for the past several days and since [...] is expected to extend beyond 2 midnights. [facility] Medical History History of DVT (deep vein [...] elevation myocardial infarction (NSTEMI) (11/22/20) Atherosclerosis of ruby coronary artery of ruby heart without angina pectoris Non-ST elevation AR (NSTEMI) Home Medications ?Medication ?Instructions ?Recorded ?Last [...] % (Auto) 61.8, Lymph % (Auto) 25.5, Obion % (Auto) 9.2, Eos % (Auto) 2.4, [...] are new since prior examination. Reading Location: [facility] Brain CT 02/10/25 18:31 IMPRESSION: 1.9 [...] 8:00 pm with readback verification. Reading Location: [facility] Head/Neck CTA 02/10/25 18:31 IMPRESSION: 1. [...] definitive treatment of this issue given his jrfedj-xti-czqzzy slurred speech, brain fog and headache. If [...] 75 minutes. Charges/Coding Visit Charges Inpatient E&M: 45830 Init Hosp L3 02/11/25 0642 <Electronically signed by Mitchell Deras DO> Cosigner Signature (if applicable): CC: Dr. Mitchell Deras DO; Dr. Beka Bowie MD~ Signed [facility] Work Phone: 1(238) 679-822903-26-2025 History and physical note [facility] Medical Records Department [address] [place] [address] H&P Exam - Hospitalist 02/10/25 2311 MR#: [id number] Acct: [id number] Name: LATONYA ELDER Rep #:[id number] : 1970 54 From: Mitchell Marr DO [...] troponin and Respiratory Insufficiency who presents to [facility] ER complaining of who presents to [facility] ER complaining of slurred speech and brain fog since Saturday, February 08, 2025. Mr. Elder and his significant other reported that his symptoms have been mzqmzs-ahr-umpxrv for the past several days and since [...] is expected to extend beyond 2 midnights. [facility] Medical History History of DVT (deep vein [...] elevation myocardial infarction (NSTEMI) (11/22/20) Atherosclerosis of ruby coronary artery of ruby heart without angina pectoris Non-ST elevation AR (NSTEMI) Home Medications ?Medication ?Instructions ?Recorded ?Last [...] % (Auto) 61.8, Lymph % (Auto) 25.5, Obion % (Auto) 9.2, Eos % (Auto) 2.4, [...] are new since prior examination. Reading Location: [facility] Brain CT 02/10/25 18:31 IMPRESSION: 1.9 [...] 8:00 pm with readback verification. Reading Location: [facility] Head/Neck CTA 02/10/25 18:31 IMPRESSION: 1. [...] definitive treatment of this issue given his bxsldd-dgf-akgtbu slurred speech, brain fog and headache. If [...] 75 minutes. Charges/Coding Visit Charges Inpatient E&M: 45344 Init Hosp L3 02/11/25 0642 Cosigner Signature (if applicable): CC: Dr. Mitchell Deras DO; Dr. Beka Bowie MD~ Signed [facility]03-26-2025 Evaluation note* Diagnosis Onset Date Resolution Status [...] 12:04am COPD exacerbation chronic January 182024 12:04am [facility] Work Phone: 1(327) 303-566503-26-2025 Discharge summary Author Jasbir [facility] Note Date/Time February 10, 2025 11: 30pm [facility] Medical Records Department [address] [place] [address] Emergency Department Summary 02/10/25 MR#: [id number] Acct: [id number] Name: LATONYA ELDER Rep #:[id number] : 1970 54 From: Jasbir Curry DO [...] his inhalers and other medications as prescribed [facility] Medical History History of DVT (deep [...] elevation myocardial infarction (NSTEMI) (11/22/20) Atherosclerosis of ruby coronary artery of ruby heart without angina pectoris Non-ST elevation AR (NSTEMI) Home Medications ?Medication ?Instructions ?Recorded ?Last [...] Patient following commands that he was at [facility] year [id number]. Patient completed finger-nose testing bilaterally for any [...] criteria. Discussed the case with neurology/neurosurgery at [facility] Dr. Barragan who reviewed everything [...] % (Auto) 61.8 Lymph % (Auto) 25.5 Obion % (Auto) 9.2 Eos % (Auto) 2.4 [...] (Auto) Neut % (Auto) Lymph % (Auto) Obion % (Auto) Eos % (Auto) Baso % [...] are new since prior examination. Reading Location: [facility] Brain CT 02/10/25 18:31 IMPRESSION: 1.9 [...] 8:00 pm with readback verification. Reading Location: [facility] Head/Neck CTA 02/10/25 18:31 IMPRESSION: 1. [...] MD [Primary Care Provider] - Print Language: Czech Disposition Disposition: Acute Care Hospital [facility] What to do if you have Problems For any increased pain, shortness of breath, bleeding, nausea or vomiting, chestpain, or any unexpected problems, contact your Primary Care Provider. Call [facility] ([phone]) or report to the closest Emergency Room. Call 911 if necessary. 02/10/250 <Electronically signed by Jasbir Curry DO> Cosigner Signature (if applicable): CC: Dr. Beka Bowie MD ~ Signed [facility] Work Phone: 1(244) 278-541003-25-2025 Discharge summary [facility] Medical Records Department [address] [place] [address] Emergency Department Summary 02/10/25 MR#: [id number] Acct: [id number] Name: LATONYA ELDER Rep #:[id number] : 1970 54 From: Jasbir Curry DO [...] his inhalers and other medications as prescribed [facility] Medical History History of DVT (deep [...] elevation myocardial infarction (NSTEMI) (11/22/20) Atherosclerosis of ruby coronary artery of ruby heart without angina pectoris Non-ST elevation AR (NSTEMI) Home Medications ?Medication ?Instructions ?Recorded ?Last [...] Patient following commands that he was at [facility] year [id number]. Patient completed finger-nose testing bilaterally for any [...] criteria. Discussed the case with neurology/neurosurgery at [facility] Dr. Barragan who reviewed everything [...] % (Auto) 61.8 Lymph % (Auto) 25.5 Obion % (Auto) 9.2 Eos % (Auto) 2.4 [...] (Auto) Neut % (Auto) Lymph % (Auto) Obion % (Auto) Eos % (Auto) Baso % [...] are new since prior examination. Reading Location: [facility] Brain CT 02/10/25 18:31 IMPRESSION: 1.9 [...] 8:00 pm with readback verification. Reading Location: [facility] Head/Neck CTA 02/10/25 18:31 IMPRESSION: 1. [...] MD [Primary Care Provider] - Print Language: Czech Disposition Disposition: Acute Care Hospital [facility] What to do if you have Problems For any increased pain, shortness of breath, bleeding, nausea or vomiting, chestpain, or any unexpected problems, contact your Primary Care Provider. Call [facility] ([phone]) or report tothe closest Emergency Room. Call 911 if necessary. 02/10/25 2330 Cosigner Signature (if applicable): CC: Dr. Beka Bowie MD ~ Signed [facility]03-25-2025 Radiology Diagnostic study note [facility] Imaging Services [address] [place] [address] STROKE CTA Head AND Neck W/Con MR#: [id number] Acct: [id number] Name: LATONYA ELDER Rep #: [id number] : 1970 M 54 From: Rajani Thompson MD PCP: Dr. Beka Bowie MD Status: R EG ER Study:STROKE CTA Head AND Neck W/Con Date of Exam: 02/10/25 Exam# [id number] Ordering Dr: Nancy Curry DO PROCEDURE: STROKE [...] caliber. There is origin of the right [employer]. The middle and posterior cerebral arteries are [...] Bowie MD; Dr. Jasbir Curry DO ~ Talent Acquisition Assistant: Signed [facility]03-25-2025 Radiology Diagnostic study note [facility] Imaging Services [address] [place] [address] [id number] Chest PA and Lateral MR#: [id number] Acct: [id number] Name: LATONYA ELDER Rep #: [id number] : 1970 M 54 From: Kelvin Woods MD PCP: Dr. Beka Bowie MD Status: R ER Study:Chest PA and Lateral Date of Exam: 02/10/25 Exam# [id number] Ordering Dr: Nancy Curry DO PROCEDURE: CHEST [...] are new since prior examination. Reading Location: [id number] CC: Dr. Beka Bowie MD; Dr. Jasbir Curry DO ~ Talent Acquisition Assistant: Signed [facility]03-25-2025 Radiology Diagnostic study note [facility] Imaging Services [address] [place], [place] [address] STROKE Brain/Head without Cont MR#: [id number] Acct: [id number] Name: LATONYA ELDER Rep #: [id number] : 1970 M 54 From: [facility] pierce Woods MD PCP: Dr. Beka Bowie MD Status: R EG ER Study:STROKE Brain/Head without Cont Date of Exam: 02/10/25 Exam# [id number] Ordering Dr: Nancy Curry DO EXAM: CT [...] 8:00 pm with readback verification. Reading Location: [id number] CC: Dr. Beka Bowie MD; Dr. Jasbir Curry DO ~ Talent Acquisition Assistant: Signed [facility]11-25-2024 [facility] Medical Records Department [address] [place] [address] [place] [address] Discharge Summary 10/13/24 1333 MR#: [id number] Acct: [id number] Name: LATONYA ELDER Rep #: [id number] : 1970 54 From: Manuelito Green DO PCP: Dr. Beka Bowie MD Status:DIS IN [id number] Prov[facility] Date of Admission: 10/11/24 Date of [...] artery disease #5 elevated troponin-not diagnostic of pdw-GNFUZ-kwnszkqz unclear Medications at Discharge Home Medications aspirin 81 mg chewable tablet 81 mg PO DAILY [facility] 04/27/22 loratadine 10 mg tablet 10 mg PO DAILY PRN allergies 06/26/22 carvedilol 25 mg tablet 25 mg PO [facility] tabs 04/24/23 clonidine HCl 0.1 mg [...] was seen in the emergency room at [facility] with complaints of shortness of breath and [...] organomegaly, masses, or abdomin (more content not included)...[facility] 03-17-2024 NoteHNO ID: [id number] Author: RAD RENEE APRN.INFRASTRUCTURE ANALYST Service: ? Author Type: Nurse Practitioner Type: Progress Notes Filed: 03/17/2024 07:43 Note Text: This note was created using RemitDATA. Prema Elder is a 53 year old [...] UNIT-TRIMETHOPRIM 1 MG/ML EYE DROPS Rad Renee APRN.[facility]04-29-2024 Instructions* Patient Instructions* Rad Renee APRN.RACHEL - [...] 100.5 F (38 C). [facility] History of Present illness Narrative* Rad Renee APRN.RACHEL - 03/17/2024 7:37 AM EDT This note was created using RemitDATA. Subjective Latonya Elder is a 53 year [...] UNIT-TRIMETHOPRIM 1 MG/ML EYE DROPS Rad Renee APRN.INFRASTRUCTURE ANALYST [facility] Progress note Author Harvey Murphy [facility] December 26, 2023 9:31am Note Date/Time December 26, 2023 9 :25am [facility] Medical Records Department [address] [place] [address] Progress Note - Cardiology 12/26/23 0923 MR#: [id number] Acct: [id number] Name: LATONYA ELDER Rep #:[id number] : 1970 53 From: Harvey Murphy MD PCP: Dr. Beka Bowie MD Status:A DM IN Location: [place] [address] Subjective Subjective The patient is sitting up [...] call for office visit. (2) Non-ST elevation AR (NSTEMI): PLAN: The patient underwent stenting of [...] to Brilinta he should be discharged on Ufowiglk22 mg twice daily. This should be maintained for at least 6 weeks and then if necessary can be switched back to his chronic Plavix. 3. Right cardiovascular standpoint the patient can be discharged home. Charges/Coding Visit Charges Inpatient E&M: 07074 Subs Hosp L2 12/26/23930 <Electronically signed by Harvey Murphy MD> Cosigner Signature (if applicable): CC: ~ Signed [facility] Work Phone: 1(766) 950-168202-07-2024 Discharge summary Author Maldonado Whitt [facility] December 26, 2023 11:16am Note Date/Time December 26, 2023 9 :21am [facility] Medical Records Department [address] [place] [address] Instructions for Home/Discharge Instructions 12/26/23919 MR#: [id number] Acct: [id number] Name: LATONYA ELDER Rep #:[id number] : 1970 53 From: Maldonado mcmullen DO [...] MD; Dr. Mary Lewis MD ~ Signed [facility] Work Phone: 1(463) 836-853202-07-2024 Progress note Author Maldonado Whitt [facility] December 25, 2023 11:15pm Note Date/Time December 25, 2023 3 :18pm [facility] Medical Records Department [address] [place] [address] Progress Note - Hospitalist 12/25/23 1518 MR#: [id number] Acct: [id number] Name: LATONYA ELDER Rep #:[id number] : 1970 53 From: Maldonado mcmullen DO PCP: Dr. Beka Bowie MD Status:A DM IN Location: [place] [address]- Reason for Visit Reason for Visit: Diagnoses [...] (Auto) 75.1 H, Lymph % (Auto) 14.1 L,Obion % (Auto) 8.8, Eos % (Auto) 1.0, [...] Assessment & Plan Assessment/Plan (1) Non-ST elevation AR (NSTEMI): (2) Hypertensive emergency: PLAN: Plan Patient is a 53 year old male who presented to [facility] ED on 12/24/2023 with worsening chest pain. [...] 35 minutes. Charges/Coding Visit Charges Inpatient E&M: 09886 Subs Hosp L2 12/25/23 6381 <Electronically signed by Maldonado Whitt DO> Cosigner Signature (if applicable): CC: ~ Signed [facility] Work Phone: 1(824) 107-226702-06-2024 Progress note Author Harvey Murphy [facility] December 25, 2023 7:52am Note Date/Time December 25, 2023 7 :53am [facility] Medical Records Department [address] [place] [address] Progress Note - Cardiology 12/25/23 0747 MR#: [id number] Acct: [id number] Name: LATONYA ELDER Matt Rep #:[id number] : 1970 53 From: Harvey Murphy MD PCP: Dr. Beka Bowie MD Status:A DM IN Location: [place] [address]- 1 Subjective Subjective Patient reports he had [...] % (Auto) 67.1, Lymph % (Auto) 20.4, Obion % (Auto) 10.0, Eos % (Auto) 0.9, [...] (Auto) 75.1 H, Lymph % (Auto) 14.1 L,Obion % (Auto) 8.8, Eos % (Auto) 1.0, [...] % (Auto) 67.1, Lymph % (Auto) 20.4, Obion % (Auto) 10.0, Eos % (Auto) 0.9, [...] 75.1 H, Lymph % (Auto) 14.1 L, Obion % (Auto) 8.8, Eos % (Auto) 1.0, [...] Assessment & Plan Assessment/Plan (1) Non-ST elevation AR (NSTEMI): PLAN: Patient's enzymes appear to peaked [...] coronary anatomy. Charges/Coding Visit Charges Inpatient E&M: 76478 Subs Hosp L2 12/25/23 0752 <Electronically signed by Harvey Murphy MD> Cosigner Signature (if applicable): CC: ~ Signed [facility] Work Phone: 1(603) 869-457202-05-2024 Consult note Author Harvey Murphy [facility] December 24, 2023 3:20pm Note Date/Time December 24, 2023 2 :56pm [facility] Medical Records Department [address] [place] [address] Consultation - Cardiology 12/24/23 1454 MR#: [id number] Acct: [id number] Name: LATONYA ELDER Rep #:[id number] : 1970 53 From: Harvey Murphy MD PCP: Dr. Beka Bowie MD Status:A DM IN Location: [place] [address] Assessment & Plan Assessment/Plan (1) Non-ST elevation AR (NSTEMI): PLAN: The patient's symptoms are consistent [...] [facility] Acute sinusitis, unspecified Asthma Atherosclerosis of ruby coronary artery of ruby heart without angina pectoris Chronic obstructive pulmonary disease (COPD) Cluster headache Community acquired pneumonia COPD (chronic obstructive pulmonary disease) Coronary artery disease Diabetes Essential hypertension Headache History of non-ST elevation myocardial infarction (NSTEMI) (11/22/20) Hyperlipidemia Insulin dependent diabetes mellitus Ischemic cardiomyopathy Left shoulder pain Migraine Myocardial infarct Nicotine dependence Non-ST elevation AR (NSTEMI) Obesity Obesity (BMI 30.0-34.9) Smoker Home [...] 20% Risk Charges/Coding Visit Charges Inpatient E&M: 02749 Init Hosp L3 Objective Data Vital Signs: [...] % (Auto) 67.1, Lymph % (Auto) 20.4, Obion % (Auto) 10.0, Eos % (Auto) 0.9, [...] % (Auto) 67.1, Lymph % (Auto) 20.4, Obion % (Auto) 10.0, Eos % (Auto) 0.9, [...] 13:13 EST Reading Location ID and State: [address] [place] [address] , Service support , EKG Initial EKG: Attestation: I personally reviewed and interpreted this EKG as follows: Prior EKG tracings: available for review Interpretation: Normal sinus rhythm with nonspecific ST-T wave changes no significant change from prior EKG. 12/24/23 1520 <Electronically signed by Harvey Murphy MD> Cosigner Signature (if applicable): CC: Dr. Beka Bowie MD~ Signed [facility] Work Phone: 1(899) 865-780802-05-2024 History and physical note Author Mary Lewis [facility] December 24, 2023 3:15pm Note Date/Time December 24, 2023 3 :13pm [facility] Medical Records Department [address] [facility] [place] [address] H&P Exam - Hospitalist 12/24/23 1503 MR#: [id number] Acct: [id number] Name: LATONYA ELDER Rep #:[id number] : 1970 53 From: Mary Lewis MD PCP: Dr. Beka Bowie MD Status:A DM IN Location: [facility] [id number]- 1 HPI - General General Date of Admission: 12/24/23 Date of Service: 12/24/23 Chief Complaint: Chest pain, SOB HPI Narrative LATONYA ELDER, is a 53-year-old male history of COPD, tobacco use, hypertension, type 2 diabetes mellitus, CAD with 7 stents who presented to [facility] ED 12/24/2023 with chest pain for the [...] History Acute sinusitis, unspecified Asthma Atherosclerosis of ruby coronary artery of ruby heart without angina pectoris Chronic obstructive pulmonary disease (COPD) Cluster headache Community acquired pneumonia COPD (chronic obstructive pulmonary disease) Coronary artery disease Diabetes Essential hypertension Headache History of non-ST elevation myocardial infarction (NSTEMI) (11/22/20) Hyperlipidemia Insulin dependent diabetes mellitus Ischemic cardiomyopathy Left shoulder pain Migraine Myocardial infarct Nicotine dependence Non-ST elevation AR (NSTEMI) Obesity Obesity (BMI 30.0-34.9) Smoker Home [...] % (Auto) 67.1, Lymph % (Auto) 20.4, Obion % (Auto) 10.0, Eos % (Auto) 0.9, [...] 13:13 EST Reading Location ID and State: [address] [place] [address] , Service support , Assessment & Plan [...] hep gtt Charges/Coding Visit Charges Inpatient E&M: 50192 Init Hosp L2 12/24/23 1933 <Electronically signed by Mary Lewis MD> Cosigner Signature (if applicable): CC: Dr. Beka Bowie MD; Dr. Mary Lewis MD~ Signed [facility] Work Phone: 1(413) 359-435802-05-2024 Discharge summary Author Pollo Bond [facility] December 24, 2023 3:00pm Note Date/Time December 24, 2023 1 2:40pm [facility] Medical Records Department [address] [place] [address] Emergency Department Summary 12/24/23 MR#: [id number] Acct: [id number] Name: LATONYA ELDER Rep #:[id number] : 1970 53 From: Pollo Bond MD [...] History Acute sinusitis, unspecified Asthma Atherosclerosis of ruby coronary artery of ruby heart without angina pectoris Chronic obstructive pulmonary disease (COPD) Cluster headache Community acquired pneumonia COPD (chronic obstructive pulmonary disease) Coronary artery disease Diabetes Essential hypertension Headache History of non-ST elevation myocardial infarction (NSTEMI) (11/22/20) Hyperlipidemia Insulin dependent diabetes mellitus Ischemic cardiomyopathy Left shoulder pain Migraine Myocardial infarct Nicotine dependence Non-ST elevation AR (NSTEMI) Obesity Obesity (BMI 30.0-34.9) Smoker Home [...] and heparin drip after discussion with the configuration technician, Dr. Harvey Murphy. Additionally, I discussedthe patient [...] % (Auto) 67.1 Lymph % (Auto) 20.4 Obion % (Auto) 10.0 Eos % (Auto) 0.9 [...] healthcare provider: Hospitalist (Dr. Mary Lewis) and Roofer Helper Vinyl Coating (Dr. Harvey Murphy) Critical Care Time Critical care time (excluding procedures): 30-74 minutes (31), Including time spent:, Discussing w/Patient &/or Family/Gl Accountant, Discussing w/Consultants, Arranging Admission or Transfer and Performing Direct Patient Care at Bedside Discharge Plan Dx/Rx/DC Orders Clinical Impression: Nicotine dependence, Hypertensive emergency, Non-ST elevation AR (NSTEMI), Chest pain Disposition Disposition: Acute Care Hospital [facility] What to do if you have Problems For any increased pain, shortness of breath, bleeding, nausea or vomiting, chestpain, or any unexpected problems, contact your Primary Care Provider. Call [facility] ([phone]) or report to the closest Emergency Room. Call 911 if necessary. 12/24/23 1500 <Electronically signed by Pollo Bond MD> Cosigner Signature (if applicable): CC: Dr. Beka Boiwe MD ~ Signed [facility] Work Phone: 1(376) 488-611901-03-2024 Discharge summary Author Luis York [facility] November 21, 2023 10:11am Note Date/Time November 21, 2023 7: 12am [facility] Medical Records Department [address] [place] [address] Emergency Department Summary 11/21/23 MR#: [id number] Acct: [id number] Name: LATONYA ELDER Rep #:[id number] : 1970 53 From: Luis York MD [...] History Acute sinusitis, unspecified Asthma Atherosclerosis of ruby coronary artery of ruby heart without angina pectoris Chronic obstructive pulmonary disease (COPD) Cluster headache Community acquired pneumonia COPD (chronic obstructive pulmonary disease) Coronary artery disease Diabetes Essential hypertension Headache History of non-ST elevation myocardial infarction (NSTEMI) (11/22/20) Hyperlipidemia Insulin dependent diabetes mellitus Ischemic cardiomyopathy Left shoulder pain Migraine Myocardial infarct Nicotine dependence Non-ST elevation AR (NSTEMI) Obesity Obesity (BMI 30.0-34.9) Smoker Home [...] arms there was no vertical drip. His house admin were normal. Facial structure was normal. Sensation [...] threshold to return. He should call his configuration technician, Dr. Flores for close follow-up. Make sure [...] % (Auto) 62.0 Lymph % (Auto) 25.2 Obion % (Auto) 9.8 Eos % (Auto) 2.0 [...] your Primary Care Provider. Call [facility] ([phone]) or report to the closest Emergency Room. Call 911 if necessary. 11/21/23 1011 <Electronically signed by Luis York MD> Cosigner Signature (if applicable): CC: Dr. Beka Bowie MD ~ Signed [facility] Work Phone: Consult note Author Harvey Murphy [facility] December 24, 2023 3:20pm Note Date/Time December 24, 2023 2 :56pm [facility] Medical Records Department [address] [place] [address] Consultation - Cardiology 12/24/23 1454 MR#: [id number] Acct: [id number] Name: LATONYA ELDER Rep #:[id number] : 1970 53 From: Harvey Murphy MD PCP: Dr. Beka Bowie MD Status:A DM IN Location: [place] [id number]- [id number] Assessment & Plan Assessment/Plan (1) Non-ST elevation AR (NSTEMI): PLAN: The patient's symptoms are consistent [...] History Acute sinusitis, unspecified Asthma Atherosclerosis of ruby coronary artery of ruby heart without angina pectoris Chronic obstructive pulmonary disease (COPD) Cluster headache Community acquired pneumonia COPD (chronic obstructive pulmonary disease) Coronary artery disease Diabetes Essential hypertension Headache History of non-ST elevation myocardial infarction (NSTEMI) (11/22/20) Hyperlipidemia Insulin dependent diabetes mellitus Ischemic cardiomyopathy Left shoulder pain Migraine Myocardial infarct Nicotine dependence Non-ST elevation AR (NSTEMI) Obesity Obesity (BMI 30.0-34.9) Smoker Home [...] 20% Risk Charges/Coding Visit Charges Inpatient E&M: 34290 Init Hosp L3 Objective Data Vital Signs: [...] % (Auto) 67.1, Lymph % (Auto) 20.4, Obion % (Auto) 10.0, Eos % (Auto) 0.9, [...] % (Auto) 67.1, Lymph % (Auto) 20.4, Obion % (Auto) 10.0, Eos % (Auto) 0.9, [...] 13:13 EST Reading Location ID and State: [facility] / [place] , Service support , EKG Initial EKG: Attestation: I personally reviewed and interpreted this EKG as follows: Prior EKG tracings: available for review Interpretation: Normal sinus rhythm with nonspecific ST-T wave changes no significant change from prior EKG. 12/24/23 1520 <Electronically signed by Harvey Murphy MD> Cosigner Signature (if applicable): CC: Dr. Beka Bowie MD~ Signed [facility] Work Phone: Discharge summary Author Brennon Juarez [facility] Note Date/Time February 11, 2025 2:3 2pm [facility] Medical Records Department [address] [place] [address] Discharge Summary 02/11/25 1421 MR#: [id number] Acct: [id number] Name: LATONYA ELDER Rep #:[id number] : 1970 54 From: Brennon Juarez DO [...] note (formal note not yet available in [facility]) who advised to give ASA and clopidogrel [...] seen the patient on 10/12 for a ELECTRICAL INSTALLATION INSPECTOR for coughing fit then led to a [...] % (Auto) 61.8, Lymph % (Auto) 25.5, Obion % (Auto) 9.2, Eos % (Auto) 2.4, [...] are new since prior examination. Reading Location: [id number] Brain CT 02/10/25 18:31 IMPRESSION: 1.9 by [...] 8:00 pm with readback verification. Reading Location: [id number] Head/Neck CTA 02/10/25 18:31 IMPRESSION: 1. Large [...] in the CT of 02/11/2025. Reading Location: [address] Echocardiogram 02/11/25 00:16 Interpretation Summary Normal [...] with neurology at your early convenience. [facility] [phone]. [facility] [place] [phone]. [facility] [place] [phone]. [facility] [phone]. [facility] [phone] Additionally looks like you have a pneumonia [...] Recorder Preventi (Urgent) Timeframe: 1 Day Facility: [facility] - Location: Cardiovascular Services Ordered By: Dr. Brennon Juarez Referrals / Follow Up: Beka Bowie MD [Primary Care Provider] - Within 2 Weeks Disposition Disposition (needs filled in before D/C Order can be placed): Home, Self Care Charges/Coding Visit Charges Inpatient E&M: 51464 Disch Hosp >30min 02/11/25 1432 <Electronically signed by Brennon Juarez DO> Cosigner Signature (if applicable): CC: Dr. Beka Bowie MD; Dr. Brennon Juarez DO~ Signed [facility] Work Phone: Evaluation note* Diagnosis Onset Date Resolution Status Essential hypertension acute [id number] chronic Hyperlipidemia chronic Ischemic cardiomyopathy technical staff assistant rebekah Nicotine dependence chronic History of coronary artery stent placement November 182020 resolved Coronary artery disease acut e Essential hypertension acute Insulin dependent diabetes mellitus acute Nicotine dependence chronic History of coronary artery stent placement November 182020 resolved Diabetes acute Obesity (BMI 30.0-34.9) technical staff assistant rebekah Coronary artery disease acut e Unstable angina acute [facility] Work Phone: Evaluation note* Diagnosis Onset Date Resolution Status Essential hypertension acute [id number] chronic Hyperlipidemia chronic Ischemic cardiomyopathy technical staff assistant rebekah Nicotine dependence chronic History of coronary artery stent placement November 182020 resolved Coronary artery disease acut e Essential hypertension acute Insulin dependent diabetes mellitus acute Nicotine dependence chronic History of coronary artery stent placement November 182020 resolved Diabetes acute Obesity (BMI 30.0-34.9) technical staff assistant rebekah Chest pain acute Coronary artery disease acut e Essential hypertension acute Unstable angina acute [id number] chronic History of non-ST elevation myocardial infarction (NSTEMI) November 22, 2020 chronic Hyperlipidemia chronic History of coronary artery stent placement November 182020 resolved [facility] Work Phone: Evaluation note* Diagnosis Onset Date Resolution Status Diabetes acute Obesity (BMI 30.0-34.9) technical staff assistant rebekah Essential hypertension acute Chest pain resolved Unstable angina resolved Essential hypertension acute Ischemic cardiomyopathy technical staff assistant rebekah Nicotine dependence chronic Diabetes acute Essential hypertension acute Left shoulder pain acute [facility] Work Phone: Evaluation note* Diagnosis Onset Date Resolution Status Diabetes acute Obesity (BMI 30.0-34.9) technical staff assistant rebekah Essential hypertension acute Chest pain resolved Unstable angina resolved Essential hypertension acute Ischemic cardiomyopathy technical staff assistant rebekah Nicotine dependence chronic Diabetes acute Essential hypertension acute Left shoulder pain acute Diabetes acute Hypertensive urgency acute Non-ST elevation (NSTEMI) myocardial infarction acute [facility] Work Phone: evaluation note* Diagnosis Onset Date Resolution Status Diabetes acute Obesity (BMI 30.0-34.9) technical staff assistant rebekah [id number] acute Essential hypertension acute Chest pain resolved Unstable angina resolved [id number] acute Essential hypertension acute Ischemic cardiomyopathy technical staff assistant rebekah Nicotine dependence chronic Diabetes acute Essential hypertension acute Left shoulder pain acute [id number] acute Diabetes acute Essential hypertension acute Hypertensive urgency acute Non-ST elevation (NSTEMI) myocardial infarction acute [facility] Work Phone: evaluation noteNo assessment information available [facility] Work Phone: evaluation note* Diagnosis Onset Date Resolution Status Chest pain acute Essential hypertension acute COPD (chronic obstructive pulmonary disease) chronic Nicotine dependence chronic [facility] Work Phone: Evaluation note* Diagnosis Onset Date Resolution Status Chest pain acute Essential hypertension acute COPD (chronic obstructive pulmonary disease) chronic Nicotine dependence chronic Chest pain acute Essential hypertension acute History of coronary artery stent placement November 182020 acute Hypertensive emergency acute Non-ST elevation AR (NSTEMI) acute COPD (chronic obstructive pulmonary disease) chronic Nicotine dependence chronic Elevated troponin resolved Hypertensive urgency resolve d [facility] Work Phone: Evaluation note* Diagnosis Onset Date Resolution Status Chest pain acute Essential hypertension acute COPD (chronic obstructive pulmonary disease) chronic Nicotine dependence chronic Chest pain acute Essential hypertension acute History of coronary artery stent placement December acute Hypertensive emergency acute Non-ST elevation AR (NSTEMI) acute COPD (chronic obstructive pulmonary disease) chronic Nicotine dependence chronic Elevated troponin resolved Hypertensive urgency resolve d [facility] Work Phone: Evaluation note* Diagnosis Onset Date Resolution Status Chest pain resolved Chest pain resolved Elevated troponin resolved Hypertensive emergency resol cameron Hypertensive urgency resolve d Non-ST elevation AR (NSTEMI) resolved Chest pain resolved Non-ST elevation AR (NSTEMI) resolved [facility] Work Phone: Evaluation note* Diagnosis Onset Date Resolution Status COPD (chronic obstructive pulmonary disease) chronic Essential hypertension chron ic Chest pain resolved COPD (chronic obstructive pulmonary disease) chronic Essential hypertension chron ic Chest pain resolved Elevated troponin resolved Hypertensive emergency resol cameron Hypertensive urgency resolve d Non-ST elevation AR (NSTEMI) resolved Essential hypertension chron ic Chest pain resolved Non-ST elevation AR (NSTEMI) resolved Vitamin D deficiency acute Essential hypertension chron ic Ischemic cardiomyopathy technical staff assistant rebekah COPD (chronic obstructive pulmonary disease) chronic Essential hypertension chron ic Insulin dependent diabetes mellitus chronic [facility] Work Phone: Evaluation note* Diagnosis Bacterial conjunctivitis- Primary Other conjunctiv[facility] Onset Date Resolution Status Admit Date Abnormal computed tomography angiography of head acute February 11, 2025 12:04am Acute bacterial bronchitis acute February 11, 2025 12:04am Acute CVA (cerebrovascular accident) acute February 11, 2025 12:04am Obesity (BMI 30-39.9) acute Jan 12:04am Uncontrolled hypertension acute February 11, 2025 12:04am COPD exacerbation chronic January 182024 12:04am [facility] Work Phone: History and physical note Author Mary Lewis [facility] December 24, 2023 3:15pm Note Date/Time December 24, 2023 3 :13pm [facility] Medical Records Department [address] [place] [address] H&P Exam - Hospitalist 12/24/23 1503 MR#: [id number] Acct: [id number] Name: LATONYA ELDER Rep #:[id number] : 1970 53 From: Mary Lewis MD PCP: Dr. Beka Bowie MD Status:A DM IN Location: [facility] [id number] HPI - General General Date of Admission: 12/24/23 Date of Service: 12/24/23 Chief Complaint: Chest pain, SOB HPI Narrative LATONYA ELDER, is a 53-year-old male history of COPD, tobacco use, hypertension, type 2 diabetes mellitus, CAD with 7 stents who presented to [facility] ED 12/24/2023 with chest pain for the [...] History Acute sinusitis, unspecified Asthma Atherosclerosis of ruby coronary artery of ruby heart without angina pectoris Chronic obstructive pulmonary disease (COPD) Cluster headache Community acquired pneumonia COPD (chronic obstructive pulmonary disease) Coronary artery disease Diabetes Essential hypertension Headache History of non-ST elevation myocardial infarction (NSTEMI) (11/22/20) Hyperlipidemia Insulin dependent diabetes mellitus Ischemic cardiomyopathy Left shoulder pain Migraine Myocardial infarct Nicotine dependence Non-ST elevation AR (NSTEMI) Obesity Obesity (BMI 30.0-34.9) Smoker Home [...] % (Auto) 67.1, Lymph % (Auto) 20.4, Obion % (Auto) 10.0, Eos % (Auto) 0.9, [...] 13:13 EST Reading Location ID and State: [facility] / [place] , Service support , Assessment & Plan [...] hep gtt Charges/Coding Visit Charges Inpatient E&M: 77277 Init Hosp L2 12/24/23 1515 <Electronically signed by Mary Lewis MD> Cosigner Signature (if applicable): CC: Dr. Beka Bowie MD; Dr. Mary Lewis MD~ Signed [facility] Work Phone: Reason for referral (narrative)No reason for referral information [facility] Work Phone: Chief Complaint and Reason for Visit Chief Complaint FU FROM ER chest pain chest pain 3 M FU 6 M FU UNSTABLE ANGINA Reason for Visit Essential hypertensi on [id number] Hyperlipidemia Ischemic cardiomyopathy Nicotine dependence History of [...] ANGINA Reason for Visit Essential hypertensi on [id number] Hyperlipidemia Ischemic cardiomyopathy Nicotine dependence History of coronary artery stent placement Coronary artery disease Essential hypertension Insulin dependent diabetes mellitus Nicotine dependence History of coronary artery stent placement Diabetes Obesity (BMI 30.0-34.9) Chest pain Coronary artery disease Essential hypertension Unstable angina [id number] History of non-ST elevation myocardial infarction (NSTEMI) [...] Reason for Visit Diabetes Obesity (BMI 30.0-34.9) [id number] Essential hypertension Chest pain Unstable angina [id number] Essential hypertension Ischemic cardiomyopathy Nicotine dependence Diabetes Essential hypertension Left shoulder pain [id number] Diabetes Essential hypertension Hypertensive urgency Non-ST elevation [...] artery stent placement Hypertensive emergency Non-ST elevation AR (NSTEMI) COPD (chronic obstructive pulmonary disease) Nicotine [...] artery stent placement Hypertensive emergency Non-ST elevation AR (NSTEMI) COPD (chronic obstructive pulmonary disease) Nicotine dependence Elevated troponin Hypertensive urgency Chief Complaint CHEST PAIN CHEST PAIN ER FU CHEST PAIN CHEST PAIN Amb Documentation NSTEMI, HYPERTENSIVE EMERGENCY NSTEMI, HYPERTENSIVE EMERGENCY NSTEMI, HYPERTENSIVE EMERGENCY NSTEMI, HYPERTENSIVE EMERGENCY NSTEMI, HYPERTENSIVE EMERGENCY [facility] HOSPITAL FOLLOW UP Reason for Visit Chest pain Chest pain Elevated troponin Hypertensive emergency Hypertensive urgency Non-ST elevation AR (NSTEMI) Chest pain Non-ST elevation AR (NSTEMI) Chief Complaint CHEST PAIN CHEST PAIN ER FU CHEST PAIN CHEST PAIN Amb Documentation NSTEMI, HYPERTENSIVE EMERGENCY NSTEMI, HYPERTENSIVE EMERGENCY NSTEMI, HYPERTENSIVE EMERGENCY NSTEMI, HYPERTENSIVE EMERGENCY NSTEMI, HYPERTENSIVE EMERGENCY [facility] HOSPITAL FOLLOW UP S/P [facility] 12/26 HTN URGENCY fu Severe persistent asthma, uncomplicated Reason for Visit COPD (chronic obstru ctive pulmonary disease) Essential hypertension Chest pain COPD (chronic obstructive pulmonary disease) Essential hypertension Chest pain Elevated troponin Hypertensive emergency Hypertensive urgency Non-ST elevation AR (NSTEMI) Essential hypertension Chest pain Non-ST elevation AR (NSTEMI) Vitamin D deficiency Essential hypertension Ischemic [...] April 27, 2022 7 :19am Power of Knit Goods Cutter Hand No April 27, 2022 7:19am Advance Directive Response Recorded Date/ Time Advance Directives No June 01 2:28pm Living Will No April 27, 2022 1 0:04am Power of Knit Goods Cutter Hand No April 27, 2022 10:04am Advance Directive Response Recorded Date/ Time Advance Directives No June 01 2:28pm Living Will No June 26, 2022 1:06am Power of Knit Goods Cutter Hand No June 26 1:06am Advance Directive Response Recorded Date/ Time Advance Directives No June 01 2:28pm Living Will No June 26, 2022 4:53am Power of Knit Goods Cutter Hand No June 26 4:53am Advance Directive Response Recorded Date/ Time Advance Directives No June 01 1:28pm Living Will No November 21 6:37am Power of Knit Goods Cutter Hand No November 21 6:37am Advance Directive Response Recorded Date/ Time Advance Directives No June 01 1:28pm Living Will No December 24 12:50pm Power of Knit Goods Cutter Hand No December 24, 2023 12:50pm Advance Directive Response Recorded Date/ Time Advance Directives No June 01 1:28pm Living Will No December 24 4:35pm Power of Knit Goods Cutter Hand No December 24, 2023 4:35pm Advance Directive Response Recorded Date/ Time Advance Directives No June 01 2:28pm Living Will No December 24 5:35pm Power of Knit Goods Cutter Hand No December 24, 2023 5:35pm Advance Directive Response Recorded Date/ Time Living Will No February 10, 2025 6:08pm Do you have a Healthcare Power of Knit Goods Cutter Hand? No February 10, 2025 6:08pm Advance Directives No June 01 2:28pm Advance Directive Response Recorded Date/ Time Living Will No February 11, 2025 12:38am Do you have a Healthcare Power of Knit Goods Cutter Hand? No February 11, 2025 12:38am Advance Directives [...] Ramirez MD Other Provider Active Start: [facility] 2024 End: February 11, 2025 Dr. [...] Federico Ramirez MD Other Provider Active Start: [facility] 2024 Dr. Willie Aguiar MD Other [...] Active Member Role Status Dates Dr. Beka Bwoie MD Primary Care Provider Active Start: February [...] MD Primary Care Provider Active Hesham Canchola DIE FINISHER FORGING, DIE FINISHER FORGING-C Attending Provider Active Team Status: Inactive Member [...] Flores Morel PA, PA Attending Provider Active Entry Manager Relationship Specialty Start Date End Date Beka Bowie [address] [place] [address] PCP - General 03/17/24 Team Status: Active Member Role Status Dates Dr. Beka Bowie MD Primary Care Provider Active Start: February 11, 2025 Dr. Jasbir Curry DO Emergency Provider Active Start: February 11, 2025 Dr. Mitchell Deras DO Admit Provider Active Start: February 11, 2025 Dr. Mitchell Deras DO Attending Provider Active Start: February 11, 2025 Federico Ramirez MD Other Provider Active Start: [facility] 2024 Dr. Willie Aguiar MD Other [...] or prosecute any alcohol or drug abuse [facility] Reason for Visit (unrecogniz ed section and content) Reason Comments Eye Problem left eye x 2 days, d rainage and matting (unrecognized sect ion and content) No Status Records FoundNo Status Records Found INFORMATION SOURCE (unrecogn ized section and content) DATE CREATED AUTHOR 03/17/2024 [facility] DATE CREATED AUTHOR AUTHOR'S ELLEN NICOLAS 04/01/2025 [facility] FOR RECORDS PERTAINING TO PATIENTS WHO ARE [...] BE BASED ON THE PRIMARY CLINICAL RECORDS. [employer] provides no warranty or guarantee of the accuracy or completeness of information in this document.
[2025-07-06 01:02] LABS: Magnesium 1.9 mg/dL (1.5-2.2)
[2025-07-06 01:07] LABS: Troponin T High Sens 4 HR 60 ng/L (<=22)
[2025-07-06] MEDS: Clindamycin 300 MG in Dextrose 5%-Water (50mL Bag) 50 ML 150 MG IV ×5 (01:28→23:55)
[2025-07-06] MEDS: 0.9% Normal Saline (1000mL) 1,000 ML 50 ML IV (01:36)
--- NOTE | 2025-07-06 01:36 | EKG12_ITS ---
Test Reason : CP ADMIT Blood Pressure : */* mmHG Vent. Rate : 86 BPM Atrial Rate : 86 BPM P-R Int : 196 ms QRS Dur : 116 ms QT Int : 394 ms P-R-T Axes : 56 -17 55 degrees QTcB Int : 471 ms Normal sinus rhythm Possible Left atrial enlargement Left ventricular hypertrophy with QRS widening ( Pranav product ) Abnormal ECG When compared with ECG of 05-Jul-2025 20:38, MANUAL COMPARISON REQUIRED DATA IS UNCONFIRMED Confirmed by BIRGIT EVANGELISTA, GENE ([id number]), electronic news gathering editor EVELIO CURRY ([id number]) on 07/07/2025 6:14:13 AM Referred By: Confirmed By: GENE GENAO MD
[2025-07-06 01:44] LABS: D-Dimer Quantitative (DVT/PE) 0.60 FEU/ug/m (0.27-0.49)
[2025-07-06 01:47] LABS: Mucous, Urine 0 SEEN /hpf (<or=2+); Squamous Epithelial Cells - UA 0 SEEN /hpf (0-5)
[2025-07-06 01:49] LABS: Color, Urine Yellow (Yellow); Glucose, Dipstick 1000 mg/dl (Normal); Ketone-Dipstick Negative (Negative); Leukocyte Esterase-Dipstick Negative /ul (Negative); Nitrite-Dipstick Negative (Negative); Occult Blood-Urine 10 /ul (Negative); Protein-Dipstick 30 mg/dl (Negative); Specific Gravity, Urine 1.010 (1.002-1.030); Urine Bilirubin Dipstick Negative (Negative)
[2025-07-06] MEDS: 0.9% Saline Lock 10 ML Syringe IV ×3 (01:53→17:52)
[2025-07-06 01:55] LABS: Red Blood Cells-Urine 0-5 SEEN /hpf (0-5)
[2025-07-06 02:01] LABS: Barbiturate Urine NEGATIVE (< 200 ng/mL); Benzodiazepine Urine NEGATIVE (< 200 ng/mL); PCP Urine NEGATIVE (< 25 ng/mL); THC Urine PRESUMPTIVE POSITIVE (< 50 ng/mL)
[2025-07-06 02:06] LABS: BETA-HYDROXYBUTYRATE 0.1 mmol/L (0.0-0.3); Pro- Brain NATRIURETIC PEPTIDE 201 pg/mL (<=900)
[2025-07-06 02:19] LABS: Alcohol, Blood (Medical)-Serum < 10.1 mg/dL (<=10.0)
[2025-07-06 04:49] LABS: Hematocrit 46.7 % (40-54); Hemoglobin 16.0 g/dL (13.0-16.5); Immature Granulocytes Count 0.060 X10^3/uL (0.0-0.0); Mean Corp Hgb Conc 34.3 g/dL (32-36); Mean Corpuscular Volume 85.5 fL (80-94); Mean Platelet Vol. 10.7 fl (6.2-12.0); NRBC Flagged by Analyzer 0 % (0-5); POSITIVE DIFFERENTIAL YES; Platelet Count 248 K/mm3 (150-450); RBC Distribution Width CV 13.2 % (11.6-14.6); RBC Distribution Width SD 40.7 fl (35.1-43.9); Red Blood Count 5.46 M/mm3 (4.6-6.2); White Blood Count 13.5 K/mm3 (4.4-11.0)
[2025-07-06 04:58] LABS: Differential Indicated SCAN CRITERIA MET
[2025-07-06 05:12] LABS: AST(SGOT) 26 U/L (<=37); Alanine Aminotransfer ALT/SGPT 16 U/L (<=46); Albumin, Serum 4.1 g/dL (3.5-5.0); Alkaline Phosphatase 139 U/L (40-129); Anion Gap 13 (5-15); BUN 11 mg/dL (4-19); BUN/Creat Ratio 12.3 RATIO (10-20); Calcium,Total 9.5 mg/dL (7.6-11.0); Carbon Dioxide 26.0 mmol/L (21.0-32.0); Chloride 99 mmol/L (98-108); Cholesterol 186 mg/dL (<=200); Estimated Creatinine Clearance 110.04 ml/min (50-250); Globulin 3.3 g/dL (2.2-4.2); Glucose 297 mg/dL (70-99); Low Density Lipoprotein Calc. 131 mg/dL; Potassium 3.2 mmol/L (3.3-5.1); Triglycerides 92 mg/dL; Very Low Density Lipoprotein 18 mg/dL (5-40); cholesterol:hdl ratio screen 5.03
[2025-07-06 05:24] LABS: Differential Comment SCANNED
[2025-07-06 05:25] LABS: Anisocytosis 1+; Polychromasia 1+
--- NOTE | 2025-07-06 05:25 | VDLE_ITS ---
Reason For Study Reason For Study: Elevated D Dimer RIGHT LEFT GSV is normal. GSV is normal. CFV is compressible, spontaneous, phasic, competent CFV is compressible, spontaneous, phasic, competent, and demonstrates normal augmentation. and demonstrates normal augmentation. FV is compressible, spontaneous, phasic, competent FV is compressible, spontaneous, phasic, competent and demonstrates normal augmentation. and demonstrates normal augmentation. POP V is compressible, spontaneous, phasic, competent POP V is compressible, spontaneous, phasic, competent and demonstrates normal augmentation. and demonstrates normal augmentation. T/P Trunk is compressible. T/P Trunk is compressible. PTV is compressible. PTV is compressible. RT PerV is compressible. LT PerV is compressible. Procedure This is a venous duplex using B-mode, color flow and spectral Doppler. Exam performed in department. A preliminary report was called and/or faxed to Patients RN. VL/Venous Duplex US - Cj Extrem Interpretation Summary Deep veins of the lower extremities are bilaterally patent and compressible seg mentally. There is no evidence of deep vein thrombosis on either side. Valvular competence appears intact within the p roximal deep venous systems bilaterally. The great saphenous veins appear bilaterally patent and compressible segmentall y. Ordering Physician: Mitchell Deras Referring Physician: Sivan Bowie Performed By: Lety Canchola, RDCS, RVT
[2025-07-06] MEDS: Potassium Chloride Oral Tablet 20 MEQ 60 MEQ PO (06:29)
--- NOTE | 2025-07-06 08:55 | PN_ITS ---
Subjective Subjective Patient seen and examined with his nurse by his bedside. He complained of his his blood sugars running high this morning. He is on a low dose sliding scale, which he says is not enough coverage. He has not had any more chest pain since admission. Review of systems is otherwise negative. Objective Data Objective Data Vital Signs: Vital Signs Temp Pulse Resp BP Pulse Ox O2 Del Method 98.1 F 93 16 161/101 H 98 Room Air 07/06/25 06:26 07/06/25 06:26 07/06/25 06:26 07/06/25 06:26 07/06/25 06:26 07/06/25 06:26 Oxygen Delivery Method Room Air Weight: 225 lb 8.526 oz Body Mass Index (BMI) 34.2 Intake & Output: Intake and Output for Last 24 Hours 07/04/25 07/05/25 07/06/25 23:59 23:59 23:59 Intake Total 104 / 104 Balance 104 / 104 Lab / Micro Data 07/06/25 04:40 07/06/25 04:40 Labs: Laboratory Results - last 24 hr 07/05/25 20:35: WBC 14.2 H, RBC 5.40, Hgb 16.1, Hct 45.7, MCV 84.6, MCH 29.8, MCHC 35.2, RDW Std Deviation 40.7, RDW Coeff of Narcisa 13.2, Plt Count 267, MPV 10.5, Immature Gran % (Auto) 0.400, Neut % (Auto) 55.7, Lymph % (Auto) 31.6, M juan % (Auto) 10.1 H, Eos % (Auto) 1.6, Baso % (Auto) 0.6, Absolute Neuts (auto) 7.9 H, Absolute Lymphs (auto) 4.50, Nucleated RBC % 0, Platelet Estimate ADEQUATE, RBC Morphology NORM C+C, D-Dimer Quant (PE/DVT) 0.60 H*, Sodium 139, Potassium 3.5, Chloride 101, Carbon Dioxide 22.7, Anion Gap 16 H, BUN 14, Creatinine 0.93, Estim Creat Clear Calc 108.20, Est GFR (MDRD) Non-Af 99, BUN/Creatinine Ratio 15.6, Glucose 315 H, Hemoglobin A1c 11.5 H, Calcium 10.0, T roponin T High Sens 18 D 07/05/25 22:32: Magnesium 1.9, Troponin T Hi Sens 2 Hr 27 H, Ethyl Alcohol Cancelled 07/06/25 00:27: Troponin T Hi Sens 4Hr 60 H*, NT pro BNP II Cancelled 07/06/25 00:27: NT pro BNP II 201, b-Hydroxybutyric mmol/L 0.1, TSH Cancelled 07/06/25 00:27: TSH 3.580, Ethyl Alcohol < 10.1 07/06/25 01:31: Urine Color Yellow, Urine Clarity Clear, Urine pH 7.0, Ur Specific [place] 1.010, Urine Protein 30 H, Urine Glucose (UA) 1000 H, Urine Ketones Negative, Urine Occult Blood 10 H, Urine Nitrite Negative, Urine Bilirubin Negative, Urine Urobilinogen Normal, Ur Leukocyte Esterase Negative, Urine RBC 0-5 SEEN, Urine WBC 0 SEEN, Ur Squamous Epith Cells 0 SEEN, Urine Bacteria RARE, Urine Mucus 0 SEEN, Urine Opiates Screen PRESUMPTIVE POSITIVE, U Buprenorphine Qual NEGATIVE, Ur Oxycodone Screen NEGATIVE, Urine Methadone Screen NEGATIVE, Urine Fentanyl Screen NEGATIVE, Ur Barbiturates Screen NEGATIVE, Ur Phencyclidine Scrn NEGATIVE, Ur Amphetamines Screen NEGATIVE, U Benzodiazepines Scrn NEGATIVE, Urine Cocaine Screen NEGATIVE, U Cannabinoids Screen PRESUMPTIVE POSITIVE 07/06/25 01:39: POC Glucose 263 H 07/06/25 04:40: WBC 13.5 H, RBC 5.46, Hgb 16.0, Hct 46.7, MCV 85.5, MCH 29.3, MCHC 34.3, RDW Std Deviation 40.7, RDW Coeff of Narcisa 13.2, Plt Count 248, MPV 10.7, Immature Gran % (Auto) 0.400, Neut % (Auto) 61.9, Lymph % (Auto) 24.7, M juan % (Auto) 11.3 H, Eos % (Auto) 1.3, Baso % (Auto) 0.4, Absolute Neuts (auto) 8.3 H, Absolute Lymphs (auto) 3.34, Nucleated RBC % 0, Differential Comment SCANNED, Platelet Estimate ADEQUATE, Polychromasia 1+, Anisocytosis 1+, Ovalocytes 1+, Sodium 139, Potassium 3.2 L, Chloride 99, Carbon Dioxide 26.0, Anion Gap 13, BUN 11, Creatinine 0.90, Estim Creat Clear Calc 110.04, Est GFR (MDRD) Non-Af 102, BUN/Creatinine Ratio 12.3, Glucose 297 H, Calcium 9.5, Phosphorus 2.9, Total Bilirubin 0.46, AST 26, ALT 16, Alkaline Phosphatase 139 H , Total Protein 7.5, Albumin 4.1, Globulin 3.3, Albumin/Globulin Ratio 1.2, Triglycerides 92, Cholesterol 186, LDL Cholesterol, Calc 131, VLDL Cholesterol 18, HDL Cholesterol 37 L, Cholesterol/HDL Ratio 5.03 07/06/25 06:34: POC Glucose 299 H Radiography Diagnostic Testing: Radiology Impression Chest X-Ray 07/05/25 20:58 IMPRESSION: Stable mild cardiomegaly with slightly decreased pulmonary vascular congestion. Reading Location: [facility] Head/Neck CTA 07/06/25 00:42 IMPRESSION: The ascending aorta is dilated to 4.0 cm in AP diameter. There is a 1.1 x 1.3 cm enlarged pretracheal lymph node.There is subcutaneous edema throughout the anterior and right neck with no definite organized or drainable collection, new. There is asymmetric enlargement of the right submandibular gland with a 0.2 cm calcified focus, image 280/628, which can indicate stone, unchanged in position compared to the prior. There is mucosal thickening in the floor of the right and left maxillary sinus. 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 [facility] Physical Exam Const alert, oriented x3, no apparent distress and well nourished General Appearance: cooperative HEENT normocephalic, head/scalp atraumatic, moist oral mucous membranes and oropharynx normal Eyes EOMs intact bilaterally Neck no lymphadenopathy and supple Lymph Lymphatic: no lymphedema noted Resp normal respiratory effort, normal air movement and clear to auscultation bilaterally Cardio regular rate, regular rhythm, S1 normal heart sound, S2 normal heart sound and no murmurs GI normal to inspection, nondistended, normoactive bowel sounds, soft to palpation, non-tender and non-distended Extremity normal capillary refill, no clubbing, cyanosis or edema and no calf tenderness General Extremity: no tenderness to palpation of joints or extremities Skin General Skin Exam: no breakdown Neuro CN's II-XII intact bilaterally and no focal motor deficits Motor Exam: general weakness Psych thought process normal and cooperative Appearance: appropriate Assessment & Plan Assessment/Plan (1) Hypertensive emergency: (2) Chest pain: QUALIFIERS: Chest pain type: unspecified Qualified Code(s): R07.9 - Chest pain, unspecified PLAN: Plan #Hypertensive emergency * resolved. BP was 237/126 on admission, with associated chest pain and elevated troponin, indicative of hypertensive emergency. * has known ischemic cardiomyopathy with known EF of 25% * on IV hydralazine prn. Continue current BP meds- amlodipine 10mg daily, carvedilol 25mg daily, lisinopril 20mg bid * #CHest pain to rule out ACS * has known ischemic cardiomyopathy with EF of 25% and stage III diastolic dysfunction as well as severe global hypokinesis * has had chronic episodic chest pain * tropnins did trend up gently * on SL nitroglycerin, aspirin, plavix and andre * for stress test this morning- stress test was abnormal and showed evidence of prior infarct and new perfusion defect not seen on prior test suggestive of ischemia in the LAD territory. * He therefore had cardiac cath after cardiology was consulted and cardiac cath showed 80% de enrrique stenosis of the mid LAD s/p PCI with insertion of stent. * also on ranexa and imdur. * #Type 2 diabetes mellitus with hyperglycemia * blood sugars running high this morning. ISS. Accuchecks ACHS * A1C pending. Home dose humalog resumed and patient placed on medium to high dose sliding scale * #Parotitis: Wbc was elevated on admission. On IV clindamycin. Wbc today is down to 13.5. #Hyperlipidemia: on statin #Histoyr of bilateral DVTs: was previously on eliquis but this has been discontinued. DVT prophylaxis: on lovenox Charges/Coding Visit Charges Inpatient E&M: 58896 Subs Hosp L2
--- NOTE | 2025-07-06 11:17 | STRESSREP_ITS ---
Stress Test Report Exercise myocardial perfusion stress test. 54-year-old with a history of CAD s/p CABG and multiple PCIs, HFrEF LVEF 25%. Stress protocol: Resting EKG demonstrates sinus rhythm, possible septal infarct with a rate of 78 bpm resting blood pressure is 162/104 mmHg. The patient exercised according to the regular Ricci protocol for a total duration of 3:15 attaining a maximum heart rate of 150 bpm which was 89% of maximum predicted heart rate; the maximum workload was 5.20 metabolic equivalents. At rest there were no ST or T wave changes noted to suggest ischemia and at peak exercise upsloping ST changes only were noted which did not meet the criteria for ischemia. The test was terminated due to the target heart rate being achieved/fatigue, dyspnea, and chest pain. The peak blood pressure was 190/100 mmHg. Rate-pressure product was 28,500. Myocardial perfusion protocol. [13.9 ] mCi of technetium 99m sestamibi was injected at rest. The patient exercised according to regular Ricci protocol for total duration of 3:15 and at peak exercise 40.7 mCi of technetium 99m sestamibi was injected stress images were obtained stress and rest images were reconstructed in comparing the short axis vertical long and horizontal long axis. Gated images were also obtained. Perfusion SPECT analysis: Review of the stress images demonstrate abnormal uptake of tracer.. The resting images demonstrate a severe intensity defect in the apical myocardium. Stress images demonstrate a medium sized, [id number] defect in the mid-distal anterior wall, as well as apical myocardium Gated SPECT analysis: The gated ejection fraction is 39%. Conclusion: Abnormal exercise myocardial perfusion stress test with evidence of prior inf arct, and new perfusion defect not seen on prior stress test. Suggestive of ischemia in the LAD territory. Charges/Procedures Procedures Add on/Second Study CF Procedures 9xxxx Addon/2nd Proc: 05001 Cardiovascular stress test
--- NOTE | 2025-07-06 13:40 | PCI.CARDCATH ---
PCI Cardiac Cath Report PCI Report: Cardiac Catheterization Laboratory Patient: Last name, first name [middle initial /name] MRN: xxxxxxxxx : xx/xx/xxxx Age: xx Gender: M/F Procedure Date: Cath Attending: xxxxxxxxx [phone] Cardiac Catheterization Procedure Report Summary Primary Indication Chest pain (786.50) History: A 54 year old man with hyperlipidemia, hypertension, CAD with multiple PCI's in the past, heart failure with reduced ejection fraction. Procedures Left heart cath, selective angiography of the right and left coronary arteries. IVUS of the LAD and the left main. PCI to the mid LAD with a 3.5 x 26 [place] WAN, postdilated with a 4.0 NC balloon. Vascular Access Location: right radial artery, right femoral artery Disposition (end of case): radial ? TR band Catheters Diagnostic: [place] catheter, EBU 3.5 catheter. 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 Using lidocaine for local anesthesia of the region of the right radial artery was anesthetized and we obtained access and a 6 [place] slender sheath was inserted. Radial cocktail of 200 mcg nitroglycerin and 5000 units of heparin was given. 5 [place] Tecate cath was advanced over wire into the left ventricle LVEDP was obtained pullback was performed this catheter was then seated in the left coronary for selective angiography which was then performed in multiple views, this catheter was then taken and placed in the right coronary artery, selective angiography was performed with multiple views The decision was made to proceed with PCI. ACT's were checked to ensure therapeutic ACT is maintained throughout the case, heparin bolus was given as needed. A run-through wire was advanced into the LAD. A 2.5 x 20 NC balloon was advanced and serial inflations up to 16 shira then performed. This balloon was then removed intact. We then advanced an IVUS catheter and pullback was performed. 3.0 x 22 NC balloon was advanced and serial ablations were performed up to 16 shira. This balloon was then removed A 3.0 x 15 [place] balloon was advanced, inflations up to 16 shira were performed. This was removed intact. A 3.5 x 26 Medtronic WAN was advanced and deployed with inflations up to 22 shira. A 4.0 x 12 NC balloon was advanced and in the distal portion of the LAD overlapping inflations up to [address] the way up to 14 shira in the proximal portion of the stent. IVUS catheter was advanced and pullback was then performed showing good stent apposition and expansion, no perforations or dissections. IVUS catheter was removed Final angiography showed good stent expansion, apposition, no perforations or dissections, [place]-3 flow throughout the vessel. Guide catheter was removed over wire Sheath was removed TR band was placed with adequate hemostasis. Findings: Hemodynamics (mm Hg) Aorta: 134/78, mean 92 LV: 134/4, EDP 18 Coronary arteries Left Main: Mild luminal irregularities, 10% stenosis LAD: Large caliber vessel, courses along anterior interventricular groove. Gives rise to large diagonal branch. There is a 20% stenosis of the proximal LAD, followed by a patent stent, then a 70-80% stenosis, and another patent stent. Distal LAD with luminal irregularities. The diagonal branch has a 60-70% proximal stenosis, followed by a patent stent. LCX: Moderate caliber vessel gives rise to a large OM, terminates in AV groove as aa branching PL. The circumflex has a patent stent, and just distal to this ia 60-70% eccentric stenosis. RCA: large caliber vessel that arises from the right cusp. Gives rise to large marginal branch, large PL system and PDA. There are luminal irregularities seen throughout the vessel. There is a patent stent in the mid RCA. Conclusions 1. NSTEMI Culprit lesion 80% Denovo stenosis status post IVUS guided PCI of the mid LAD with 3.5 x 26 [place] WAN, postdilated with a 4.0 NC balloon. 2. Aggressive risk factor modification including smoking cessation, aggressive lipid-lowering therapy, aggressive blood pressure control 3. Uptitration of GDMT as tolerated 4. Referral to cardiac rehab 5. Residual stenosis of the diagonal branch and left circumflex to be considered for staged PCI if patient remains symptomatic. Charges/Coding Multi Select Codes Respiratory/Cardiovascular Resp/Cardiovascular CPT Codes: [address]15 PLACE CATHETER IN ARTERY and Other Procedure See Report
--- NOTE | 2025-07-06 14:58 | CRPHASE1_ITS ---
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 Our purpose is to help you have a full recovery and achieve the goals you set for yourself. Over the years many of our patients have returned to activities they assumed they would never do again! We can help restore your confidence and motivation to make lifestyle changes that can have a significant impact on your health and quality of life! We can help answer questions and concerns you may have about exercise, lifestyle, medications, diet, stress and anxiety which are common following a hospitalization. WE monitor ECG and vital signs during exercise and discuss your progress with you and report to your physician(s). Cardiac Rehab is proven to help reduce readmissions, improve functional capacity and lower recurrence of problems with your heart. Our Cardiac Rehab program is Certified by the [place] [employer]monary [employer] (AACVPR) and Accredited by the [place] [employer] through our [facility]. You can contact us at . We invite you to call us with your questions or to get started in our program. If you have other questions or concerns be sure to ask your physician/provider during your follow-up visit. WE look forward to seeing you!
--- NOTE | 2025-07-06 15:00 | CRPH1.INST_ITS ---
General Education Discussed with Patient CAD and cardiac anatomy and function:: Family communicates acknowledgment and Needs reinforcement Explanation of diagnoses and procedures:: Family communicates acknowledgment and Needs reinforcement Sign/Symptoms of VA:: Family communicates acknowledgment and Needs reinforcement Antiplatelet therapy: Family communicates acknowledgment and Needs reinforcement Proper use of NTG-SL: Family communicates acknowledgment and Needs reinforcement Emergency procedures and activation of EMS: Family communicates acknowledgment and Needs reinforcement Compliance of all prescribed medications: Family communicates acknowledgment and Needs reinforcement Smoking Risk Factors Patient Nicotine/Smoking Risk Factors Are:: Cigarettes Recommendations Recommendations Include:: Participation in a smoking cessation program Response Code Nicotine/Smoking Response Code:: Patient communicates acknowledgment, Family communicates acknowledgment and Needs reinforcement Dyslipidemia Risk Factors Patient Dyslipidemia Risk Factors Are:: Total Cholesterol, Triglycerides, HDL and LDL Recommendations Recommendations Include:: Lipid profile not available and Therapeutic Lifestyle Change dietary guidelines Response Code Dyslipidemia Response Code:: Patient communicates acknowledgment, Family communicates acknowledgment and Needs reinforcement Overweight/Obesity Risk Factors Patient Overweight/Obesity Risk Factors Are:: Obesity - > or = 30 Recommendations Recommendations Include:: Weight loss of 5-10%, Reduced calorie diet and Exercise 5-7 times/week Response Code Overweight/Obesity:: Patient communicates acknowledgment, Family communicates acknowledgment and Needs reinforcement Hypertension Recommendations Recommendations Include:: BP <130/80 if diabetic, Decrease/maintain normal body weight and Moderation of ETOH Response Code Hypertension:: Patient communicates acknowledgment, Family communicates acknow ledgment and Needs reinforcement Heart Disease Risk Factors Patient Heart Disease Risk Factors Are:: Family history of heart disease < 65 years old and Previous cardiac event Recommendations Recommendations Include:: Educated family members of their risk and Educated family members of importance of prevention of heart disease Response Code Heart Disease Response Code:: Patient communicates acknowledgment, Family communicates acknowledgment and Needs reinforcement Diabetes Risk Factors Patient Diabetes Risk Factors Are:: Elevated blood sugars Recommendations Recommendations Include:: Maintain fasting blood sugars 70-110 md/dL, Maintain HgbA1c of 6% or less and Decrease/maintain body weight Response Code Diabetes:: Patient communicates acknowledgment, Family communicates acknowledgment and Needs reinforcement Sedentary Risk Factors Patient Sedentary Risk Factors Are:: Lack of regular exercise Recommendations Recommendations Include:: Aerobic exercise 5-7 times/week for 20-30 minutes continuously, Benefits of regular exercise, Discussed home walking program and Monitored Outpatient Cardiac Rehab Response Code Sedentary Response Code:: Patient communicates acknowledgment, Family communicates acknowledgment and Needs reinforcement
[2025-07-06 15:10] LABS: ACT Activated Clotting Time 181 sec (74-137)
[2025-07-06 15:10] LABS: ACT Activated Clotting Time 285 sec (74-137)
--- NOTE | 2025-07-06 17:39 | CON.PCM.CA_ITS ---
Assessment & Plan Assessment/Plan (1) Chest pain: QUALIFIERS: Chest pain type: unspecified Qualified Code(s): R07.9 - Chest pain, unspecified PLAN: He does have chest discomfort and presents with the same. He has known coronary artery disease. My recommendation was that he undergo a left heart catheterization which she did and depending on the results further recommendations will be made. (2) Hypertensive emergency: PLAN: This appears to have improved post PCI the plan to be to continue him on his home medications. HPI Consult Data Date of Consult: 07/06/25 HPI Narrative HPI Narrative: LATONYA ELDER, is a 54 M who presents to the emergency room with chest discomfort. He ruled out for myocardial infarction and underwent a stress test which demonstrated significant anterior ischemia and cardiology was called for follow- up and evaluation. He has a history of non-ST elevated myocardial infarction in November 2016 with drug-eluting stent to second obtuse marginal branch. He also has history of hypertension, hyperlipidemia, and tobacco abuse with 0.5 pack day. He had presented to the hospital in November of 2020 with a non-ST elevation myocardial infarction and underwent a cardiac catheterization which demonstrated previously placed stent in the LAD which was patent, the left circumflex artery with mild in-stent stenosis, and new disease involving the proximal mid and distal right coronary artery for which he underwent angioplasty and stenting. He was diagnosed with diabetes in April 2021 during hospital visit for DKA. In October of 2021 he presented to the emergency room with chest discomfort, he underwent a cardiac catheterization which resulted in a successful WAN to the mid LAD. He presented to the emergency room again on 12/20/21 with chest discomfort, he was evaluated- his troponins did not increase and he was sent home to follow up with cardiology. In April 2022 he presented to the emergency room with chest discomfort. He did undergo a diagnostic heart catheterization. Heart cath demonstrated patency of the mid LAD, OM1 and RCA stent. Patient had a proximal LAD lesion/proximal to the stent which is intermediate region around 50-60% with IFR repeated twice within normal limits. Medical management was recommended. He then again presented back to the emergency room on June 26, 2022 with chest discomfort and a non-STEMI. His blood pressure was noted to be elevated. Medications were adjusted. He was last in the office in 2021. He did present to [facility] on 12/24/2023 for a non-STEMI. He did undergo a diagnostic heart catheterization in which she had stenting to his proximal LAD and proximal OM. He was started on Brilinta however he became significantly short of breath he was then transferred over to Plavix. Echocardiogram demonstrated an ejection fraction of 50% with moderate concentric LVH. Blood pressures were initially elevated better controlled at discharge. He presents again this time and his blood pressure is elevated once again. He complains of this chest pressure. [facility] Medical History CVA (cerebral vascular accident) Obesity (BMI 30-39.9) History of DVT (deep vein thrombosis) Respiratory insufficiency Elevated troponin Acute bronchitis COPD exacerbation Congestive heart failure Vitamin D deficiency Acute sinusitis, unspecified Left shoulder pain Insulin dependent diabetes mellitus Coronary artery disease Essential hypertension Cluster headache Migraine Headache Diabetes Obesity Community acquired pneumonia Smoker Asthma Myocardial infarct Ischemic cardiomyopathy Obesity (BMI 30.0-34.9) Chronic obstructive pulmonary disease (COPD) Nicotine dependence COPD (chronic obstructive pulmonary disease) Hyperlipidemia History of non-ST elevation myocardial infarction (NSTEMI) (11/22/20) Atherosclerosis of [place] coronary artery of [place] heart without angina pectoris Non-ST elevation VT (NSTEMI) Home Medications ?Medication ?Instructions ?Recorded ?Last Taken ?Type aspirin 81 mg chewable tablet 81 mg PO DAILY heart hea lth 04/27/22 02/10/25 History loratadine 10 mg tablet 10 mg PO DAILY PRN allergies 06/26/22 Unknown History insulin degludec 200 unit/mL (3 50 unit (0.25 mL) subc ut HS blood 12/28/23 02/09/25 Rx mL) subcutaneous pen (Tresiba sugar 3 months #22.5 mL FlexTouch U-200 insulin) carvedilol 25 mg tablet 25 mg PO BID heart [facility] #180 10/27/24 02/10/25 Rx tabs clonidine HCl 0.1 mg tablet 0.1 mg PO BID blood pressu re #180 12/15/24 02/10/25 Rx tabs furosemide 20 mg tablet (Lasix) 60 mg (3 x 20 mg) PO D AILY #270 01/15/25 02/10/25 Rx tabs guaifenesin 1,200 mg tablet, 600 mg PO BID 02/10/25 History extended release 12 hr (Mucus Relief ER) insulin lispro 100 unit/mL 20 unit subcut TIDAC PRN DI ABETES 02/10/25 02/10/25 History subcutaneous pen (Humalog KwikPen (U-100) Insulin) albuterol sulfate 90 mcg/actuation 2 puff inhalation 4 X/DAY PRN 02/11/25 Unknown Rx aerosol inhaler Shortness Of Breath #8.5 gra ms atorvastatin 80 mg tablet 80 mg PO QHS cholesterol #90 tabs 02/11/25 Unknown Rx amlodipine 10 mg tablet 10 mg PO DAILY blood pressur e #90 02/12/25 Unknown Rx tabs clopidogrel 75 mg tablet (Plavix) 75 mg PO DAILY anti platelet #90 02/12/25 Unknown Rx tabs isosorbide mononitrate 60 mg 60 mg PO BID heart #180 T ABLETS 02/12/25 Unknown Rx tablet,extended release 24 hr ranolazine 1,000 mg 1,000 mg PO BID heart #60 ta bs 02/12/25 Unknown Rx tablet,extended release,12 hr nitroglycerin 0.4 mg sublingual 0.4 mg sublingual Q5-1 5M chest 06/01/25 Unknown Rx tablet pain #25 tabs lisinopril 20 mg tablet 20 mg PO BID blood pressure 07/05/25 Unknown History Allergy/AdvReac Type Severity Reaction Status Date / Time amoxicillin trihydrate (From Allergy Rash Verified 07/05/25 20:31 Augmentin) potassium clavulanate (From Allergy Rash Verified 07/05/25 20:31 Augmentin) ticagrelor (From Brilinta) Allergy Shortness Verified 07/05/25 20:31 of breath codeine AdvReac Nausea Verified 07/05/25 20:31 Family History Sister Myocardial infarction, Onset Age: 41 Diabetes Mother COPD (chronic obstructive pulmonary disease) Asthma Rheumatoid arthritis CVA (cerebral vascular accident) Hypertension Grandmother Diabetes Surgical History History of coronary artery stent placement (12/25/23) History of hernia repair (2008) History of umbilical hernia repair (1971) History of neck surgery History of appendectomy Social History household members: spouse housing: house Smoking Status: Current every day smoker tobacco type: cigarettes Tobacco: How many years used: 20 Electronic Cigarette Use: not used second hand exposure: Yes alcohol intake: current alcohol intake frequency: 0-2 drinks per day Alcohol type: beer substance use type: does not use caffeine: Yes Type: carbonated beverages Number of servings: 2 and tea Number of servings: 6 what type of physical activity do you participate in: none ROS Constitutional Constitutional: Denies fever(s) or weight loss Eyes Eyes: Reports systems reviewed and no addt'l complaints, except as documented ENT HEENT: Reports systems reviewed and no addt'l complaints, except as documented Cardiovascular Cardiovascular: Reports chest pain at rest, dyspnea at rest and dyspnea on exertion; Denies chest pain with activity, edema, palpitations or paroxysmal nocturnal dyspnea Respiratory/Chest Respiratory/Chest: Denies dyspnea on exertion, productive cough, shortness of breath at rest or shortness of breath with exertion Gastrointestinal Gastrointestinal: Denies change in bowel habits, nausea, vomiting or weight changes Genitourinary Genitourinary: Denies difficulty urinating Musculoskeletal Musculoskeletal: Denies joint stiffness or muscle weakness Integumentary Integumentary: Denies lesions Neurologic Neurologic: Denies dizziness or syncope Psychiatric Psychiatric: Denies anxiety Endocrine Endocrinology: Denies excessive sweating or fatigue Hematologic/Lymphatic Hematologic/Lymphatic: Denies anemia Allergic/Immunologic Allergic/Immunologic: Denies seasonal rhinorrhea Objective Data Vital Signs: Vital Signs Temp Pulse Resp BP Pulse Ox O2 Del Method 98.6 F 83 18 107/72 95 Room Air 07/06/25 16:53 07/06/25 16:53 07/06/25 16:53 07/06/25 16:53 07/06/25 16:53 07/06/25 16:53 Oxygen Delivery Method Room Air Weight: 225 lb 8.526 oz Body Mass Index (BMI) 34.2 Intake & Output: Intake and Output for Last 24 Hours 07/04/25 07/05/25 07/06/25 23:59 23:59 23:59 Intake Total 655.17 / 655.17 Balance 655.17 / 655.17 Lab / Micro Data 07/06/25 04:40 07/06/25 04:40 Labs: Laboratory Results - last 24 hr 07/05/25 20:35: WBC 14.2 H, RBC 5.40, Hgb 16.1, Hct 45.7, MCV 84.6, MCH 29.8, MCHC 35.2, RDW Std Deviation 40.7, RDW Coeff of Narcisa 13.2, Plt Count 267, MPV 10.5, Immature Gran % (Auto) 0.400, Neut % (Auto) 55.7, Lymph % (Auto) 31.6, M juan % (Auto) 10.1 H, Eos % (Auto) 1.6, Baso % (Auto) 0.6, Absolute Neuts (auto) 7.9 H, Absolute Lymphs (auto) 4.50, Nucleated RBC % 0, Platelet Estimate ADEQUATE, RBC Morphology NORM C+C, D-Dimer Quant (PE/DVT) 0.60 H*, Sodium 139, Potassium 3.5, Chloride 101, Carbon Dioxide 22.7, Anion Gap 16 H, BUN 14, Creatinine 0.93, Estim Creat Clear Calc 108.20, Est GFR (MDRD) Non-Af 99, BUN/Creatinine Ratio 15.6, Glucose 315 H, Hemoglobin A1c 11.5 H, Calcium 10.0, T roponin T High Sens 18 D 07/05/25 22:32: Magnesium 1.9, Troponin T Hi Sens 2 Hr 27 H, Ethyl Alcohol Cancelled 07/06/25 00:27: Troponin T Hi Sens 4Hr 60 H*, NT pro BNP II Cancelled 07/06/25 00:27: NT pro BNP II 201, b-Hydroxybutyric mmol/L 0.1, TSH Cancelled 07/06/25 00:27: TSH 3.580, Ethyl Alcohol < 10.1 07/06/25 01:31: Urine Color Yellow, Urine Clarity Clear, Urine pH 7.0, Ur Specific [place] 1.010, Urine Protein 30 H, Urine Glucose (UA) 1000 H, Urine Ketones Negative, Urine Occult Blood 10 H, Urine Nitrite Negative, Urine Bilirubin Negative, Urine Urobilinogen Normal, Ur Leukocyte Esterase Negative, Urine RBC 0-5 SEEN, Urine WBC 0 SEEN, Ur Squamous Epith Cells 0 SEEN, Urine Bacteria RARE, Urine Mucus 0 SEEN, Urine Opiates Screen PRESUMPTIVE POSITIVE, U Buprenorphine Qual NEGATIVE, Ur Oxycodone Screen NEGATIVE, Urine Methadone Screen NEGATIVE, Urine Fentanyl Screen NEGATIVE, Ur Barbiturates Screen NEGATIVE, Ur Phencyclidine Scrn NEGATIVE, Ur Amphetamines Screen NEGATIVE, U Benzodiazepines Scrn NEGATIVE, Urine Cocaine Screen NEGATIVE, U Cannabinoids Screen PRESUMPTIVE POSITIVE 07/06/25 01:39: POC Glucose 263 H 07/06/25 04:40: WBC 13.5 H, RBC 5.46, Hgb 16.0, Hct 46.7, MCV 85.5, MCH 29.3, MCHC 34.3, RDW Std Deviation 40.7, RDW Coeff of Narcisa 13.2, Plt Count 248, MPV 10.7, Immature Gran % (Auto) 0.400, Neut % (Auto) 61.9, Lymph % (Auto) 24.7, M juan % (Auto) 11.3 H, Eos % (Auto) 1.3, Baso % (Auto) 0.4, Absolute Neuts (auto) 8.3 H, Absolute Lymphs (auto) 3.34, Nucleated RBC % 0, Differential Comment SCANNED, Platelet Estimate ADEQUATE, Polychromasia 1+, Anisocytosis 1+, Ovalocytes 1+, Sodium 139, Potassium 3.2 L, Chloride 99, Carbon Dioxide 26.0, Anion Gap 13, BUN 11, Creatinine 0.90, Estim Creat Clear Calc 110.04, Est GFR (MDRD) Non-Af 102, BUN/Creatinine Ratio 12.3, Glucose 297 H, Calcium 9.5, Phosphorus 2.9, Total Bilirubin 0.46, AST 26, ALT 16, Alkaline Phosphatase 139 H , Total Protein 7.5, Albumin 4.1, Globulin 3.3, Albumin/Globulin Ratio 1.2, Triglycerides 92, Cholesterol 186, LDL Cholesterol, Calc 131, VLDL Cholesterol 18, HDL Cholesterol 37 L, Cholesterol/HDL Ratio 5.03 07/06/25 06:34: POC Glucose 299 H 07/06/25 11:25: POC Glucose 264 H 07/06/25 11:54: Activated Clotting Time 181 H 07/06/25 12:09: Activated Clotting Time 285 H Cardiology Labs/Tests 07/05/25 20:35: WBC 14.2 H, RBC 5.40, Hgb 16.1, Hct 45.7, MCV 84.6, MCH 29.8, MCHC 35.2, Plt Count 267, MPV 10.5, Immature Gran % (Auto) 0.400, Neut % (Auto) 55.7, Lymph % (Auto) 31.6, [place] % (Auto) 10.1 H, Eos % (Auto) 1.6, Baso % (Auto) 0.6, Absolute Neuts (auto) 7.9 H, Nucleated RBC % 0, D-Dimer Quant (PE/DVT) 0.60 H*, Sodium 139, Potassium 3.5, Chloride 101, Carbon Dioxide 22.7, Anion Gap 16 H , BUN 14, Creatinine 0.93, Est GFR (MDRD) Non-Af 99, BUN/Creatinine Ratio 15.6, Glucose 315 H, Hemoglobin A1c 11.5 H, Calcium 10.0 07/05/25 22:32: Magnesium 1.9 07/06/25 01:31: Urine Color Yellow, Urine Clarity Clear, Urine pH 7.0, Ur Specific [place] 1.010, Urine Protein 30 H, Urine Glucose (UA) 1000 H, Urine Ketones Negative, Urine Occult Blood 10 H, Urine Nitrite Negative, Urine Bilirubin Negative, Urine Urobilinogen Normal, Ur Leukocyte Esterase Negative, Urine RBC 0-5 SEEN, Urine WBC 0 SEEN 07/06/25 04:40: WBC 13.5 H, RBC 5.46, Hgb 16.0, Hct 46.7, MCV 85.5, MCH 29.3, MCHC 34.3, Plt Count 248, MPV 10.7, Immature Gran % (Auto) 0.400, Neut % (Auto) 61.9, Lymph % (Auto) 24.7, [place] % (Auto) 11.3 H, Eos % (Auto) 1.3, Baso % (Auto) 0.4, Absolute Neuts (auto) 8.3 H, Nucleated RBC % 0, Sodium 139, Potassium 3.2 L , Chloride 99, Carbon Dioxide 26.0, Anion Gap 13, BUN 11, Creatinine 0.90, Est GFR (MDRD) Non-Af 102, BUN/Creatinine Ratio 12.3, Glucose 297 H, Calcium 9.5, Phosphorus 2.9, Total Bilirubin 0.46, Triglycerides 92, Cholesterol 186, VLDL Cholesterol 18, HDL Cholesterol 37 L, Cholesterol/HDL Ratio 5.03 Rhythm: EKG: ECHO: Stress Test: Cardiac Cath: PCI: CT Surgery: Holter monitor: EPS: PPM: CXR: Chest CT Scan: Radiography Diagnostic Testing: Radiology Impression Chest X-Ray 07/05/25 20:58 IMPRESSION: Stable mild cardiomegaly with slightly decreased pulmonary vascular congestion. Reading [facility] Head/Neck CTA 07/06/25 00:42 IMPRESSION: The ascending aorta is dilated to 4.0 cm in AP diameter. There is a 1.1 x 1.3 cm enlarged pretracheal lymph node.There is subcutaneous edema throughout the anterior and right neck with no definite organized or drainable collection, new. There is asymmetric enlargement of the right submandibular gland with a 0.2 cm calcified focus, image 280/628, which can indicate stone, unchanged in position compared to the prior. There is mucosal thickening in the floor of the right and left maxillary sinus. 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 Reading [facility] Venous Doppler Study 07/06/25 05:25 Interpretation Summary Deep veins of the lower extremities are bilaterally patent and compressible segmentally. There is no evidence of deep vein thrombosis on either side. Valvular competence appears intact within the proximal deep venous systems bilaterally. The great saphenous veins appear bilaterally patent and compressible segmentally. Ordering Physician: Mitchell Deras Referring Physician: Sivan Bowie Performed By: Lety Canchola, RDCS, RVT [place] Risk Score for UA/STEMI Assesmment (YES = 1) Risk Stratification Applicable: Yes Age > or = 65: No > or = 3 CAD risk factors (HTN, Hypercholesterolemia, Diabetes, family hx, current smoker): Yes Known CAD (Stenosis > or = 50%): Yes ASA used in past 7 days: Yes Severe angina (> or = 2 episodes in 24 hrs): No EKG ST change > or = 0.5mm: No Positive cardiac markers: No Score [place] Risk Score of mortality/ recurrent ischemic event over the next 14 days: 3 = 13.2% Intermediate Risk
[2025-07-07 03:40] VITALS: BP 138/79; PULSE 79; RESP 16; TEMP 36.8; TEMP 36.9; O2SAT 97
[2025-07-07 05:00] VITALS: BMI 34.4
[2025-07-07 05:37] LABS: Hematocrit 39.3 % (40-54); Hemoglobin 13.4 g/dL (13.0-16.5); Immature Granulocytes Count 0.040 X10^3/uL (0.0-0.0); Mean Corp Hgb Conc 34.1 g/dL (32-36); Mean Corpuscular Volume 85.2 fL (80-94); Mean Platelet Vol. 10.6 fl (6.2-12.0); NRBC Flagged by Analyzer 0 % (0-5); Platelet Count 212 K/mm3 (150-450); RBC Distribution Width CV 13.4 % (11.6-14.6); RBC Distribution Width SD 41.6 fl (35.1-43.9); Red Blood Count 4.61 M/mm3 (4.6-6.2); White Blood Count 10.2 K/mm3 (4.4-11.0)
[2025-07-07] MEDS: Clindamycin 300 MG in Dextrose 5%-Water (50mL Bag) 50 ML 150 MG IV (05:40)
[2025-07-07 06:21] LABS: Anion Gap 13 (5-15); BUN 14 mg/dL (4-19); BUN/Creat Ratio 13.2 RATIO (10-20); Calcium,Total 9.1 mg/dL (7.6-11.0); Carbon Dioxide 24.8 mmol/L (21.0-32.0); Chloride 102 mmol/L (98-108); Estimated Creatinine Clearance 93.70 ml/min (50-250); Glucose 207 mg/dL (70-99); Potassium 3.4 mmol/L (3.3-5.1)
[2025-07-07 07:49] VITALS: BP 121/81; PULSE 79; RESP 18; TEMP 36.3; O2SAT 97
[2025-07-07 10:45] VITALS: BP 103/71; PULSE 68; RESP 14; TEMP 36.4; O2SAT 95
--- NOTE | 2025-07-07 10:46 | DS.PCM_ITS ---
Providers Date of Admission: 07/06/25 Date of Discharge: 07/07/25 Primary Care Physician: Dr. Sivan Bowie MD Consultations 07/06/25 13:05 Consult: Cardiology Routine Consulting Provider: Eric Flores Reason for Consult: chest pain, abnormal stress test EMERGENT Consult: No MD Notified: Yes Date Notified: 07/06/25 Time Notified: 13:05 Method of Notification: Text Reason For Visit: HYPERTENSIVE URGENCY, CHEST PAIN, ELEVATED TROP T Diagnosis Discharge Diagnosis (1) Chest pain: Status: Acute Code(s): R07.9 - Chest pain, unspecified Qualifiers: Chest pain type: unspecified Qualified Code(s): R07.9 - Chest pain, unspecified (2) Hypertensive emergency: Status: Acute Code(s): I16.1 - Hypertensive emergency Plan #Hypertensive emergency * resolved. BP was 237/126 on admission, with associated chest pain and elevated troponin, indicative of hypertensive emergency. * has known ischemic cardiomyopathy with known EF of 25% * on IV hydralazine prn. Continue current BP meds- amlodipine 10mg daily, carvedilol 25mg daily, lisinopril 20mg bid * #CHest pain to rule out ACS * has known ischemic cardiomyopathy with EF of 25% and stage III diastolic dysfunction as well as severe global hypokinesis * has had chronic episodic chest pain * tropnins did trend up gently * on SL nitroglycerin, aspirin, plavix and andre * for stress test this morning- stress test was abnormal and showed evidence of prior infarct and new perfusion defect not seen on prior test suggestive of ischemia in the LAD territory. * He therefore had cardiac cath after cardiology was consulted and cardiac cath showed 80% de enrrique stenosis of the mid LAD s/p PCI with insertion of stent. * also on ranexa and imdur. * #Type 2 diabetes mellitus with hyperglycemia * blood sugars running high this morning. ISS. Accuchecks ACHS * A1C pending. Home dose humalog resumed and patient placed on medium to high dose sliding scale * #Parotitis: Wbc was elevated on admission. On IV clindamycin. Wbc today is down to 13.5. #Hyperlipidemia: on statin #Histoyr of bilateral DVTs: was previously on eliquis but this has been discontinued. DVT prophylaxis: on lovenox Medications at Discharge Home Medications aspirin 81 mg chewable tablet 81 mg PO DAILY heart health 04/27/22 loratadine 10 mg tablet 10 mg PO DAILY PRN allergies 06/26/22 insulin degludec 200 unit/mL (3 mL) subcutaneous pen (Tresiba FlexTouch U-200 insulin) 50 unit (0.25 mL) subcut QHS blood sugar 3 months #22.5 mL 12/28/23 carvedilol 25 mg tablet 25 mg PO BIDCM heart health #180 tabs 10/27/24 clonidine HCl 0.1 mg tablet 0.1 mg PO BID blood pressure #180 tabs 12/15/24 furosemide 20 mg tablet (Lasix) 60 mg (3 x 20 mg) PO DAILY #270 tabs 01/15/25 guaifenesin 1,200 mg tablet, extended release 12 hr (Mucus Relief ER) 600 mg PO BID 02/10/25 insulin lispro 100 unit/mL subcutaneous pen (Humalog KwikPen (U-100) Insulin) 20 unit subcut TIDAC PRN DIABETES 02/10/25 albuterol sulfate 90 mcg/actuation aerosol inhaler 2 puff inhalation 4X/DAY PRN Shortness Of Breath #8.5 grams 02/11/25 atorvastatin 80 mg tablet 80 mg PO QHS cholesterol #90 tabs 02/11/25 amlodipine 10 mg tablet 10 mg PO DAILY blood pressure #90 tabs 02/12/25 clopidogrel 75 mg tablet (Plavix) 75 mg PO DAILY anti platelet #90 tabs 02/12/25 isosorbide mononitrate 60 mg tablet,extended release 24 hr 60 mg PO BID heart #180 TABLETS 02/12/25 ranolazine 1,000 mg tablet,extended release,12 hr 1,000 mg PO BID heart #60 tabs 02/12/25 nitroglycerin 0.4 mg sublingual tablet 0.4 mg sublingual Q5-15M chest pain #25 tabs 06/01/25 lisinopril 20 mg tablet 20 mg PO BID blood pressure 07/05/25 clindamycin HCl 300 mg capsule (Cleocin HCl) 600 mg (2 x 300 mg) PO TID 7 days #42 caps 07/07/25 Hospital Course Operations None Procedures None Summary of Care Provided Minutes Spent on Discharge: 45 Hospital Course: Patient is a 54-year-old male with past medical history as outlined was admitted to the ED on 07/05/2025 with complaint of chest pain which started about 20 minutes prior to admission. It was substernal and constant and felt like cramps. Had no aggravating or relieving factors. He admitted to shortness of breath, diaphoresis and palpitations. He also complained of a golf ball sized swelling under his mandible that started on the day of admission and he had rested headache, nausea and vomiting. He denied any fever or chills or any respiratory symptoms. On admission blood pressure was markedly elevated at 237/126 consistent with hypertensive emergency since he also had chest pain. Initial troponin was not elevated but subsequent troponins trended upwards. Chest x-ray showed stable mild cardiomegaly with slightly decreased pulmonary vascular congestion complicated by hyperglycemia in the setting of known diabetes mellitus. He was also started on IV clindamycin for parotitis as he also had elevated WBC. He was admitted to be managed for hypertensive emergency and for chest pain to rule out ACS. EKG showed no acute ST changes. He was resumed on his blood pressure medications and his blood pressure did trend downwards. He had stress test which was abnormal and showed evidence of prior infarct and new perfusion defect not seen on prior stress test. Cardiology was consulted and he had cardiac cath on 80% denovo stenosis of the mid LAD and had PCI with insertion of drug eluting stent. He remained stable and was discharged home on 07/07/2025 to continue his PO aspirin, plavix and high intensity statin. He was also discharged on PO clindamycin 300mg qid x 7 days to treat the parotitis. 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 Patient also counseled to quit smoking. Patient seen and examined prior to discharge. He had no active complaints and had an uneventful night. Review of systems is otherwise negative. Labs and vitals revewed. Home meds reviewed and reconciled. Physical Exam Const alert, oriented x3, no apparent distress and well nourished General Appearance: cooperative HEENT normocephalic, head/scalp atraumatic, hearing grossly normal bilaterally, moist oral mucous membranes and oropharynx normal Mouth: oral and palatal mucosa normal Eyes PERRL, EOMs intact bilaterally and conjunctivae normal Neck no lymphadenopathy, supple and no JVD Lymph Lymphatic: no lymphedema noted Resp normal respiratory effort, normal air movement, no retractions, no use of accessory muscles and clear to auscultation bilaterally Cardio regular rate, regular rhythm, S1 normal heart sound, S2 normal heart sound and no murmurs GI normal to inspection, nondistended, normoactive bowel sounds, soft to palpation, non-tender and non-distended Extremity normal to inspection, full ROM, normal capillary refill, no clubbing, cyanosis or edema and no calf tenderness General Extremity: no tenderness to palpation of joints or extremities Skin Skin Narrative: Patient has no evidence of rash, abscess, wounds or jaundice. General Skin Exam: no breakdown Neuro oriented x3, CN's II-XII intact bilaterally, moves all extremities and no focal motor deficits Sensorium / Orientation: awake, alert, oriented to person, oriented to place and oriented to time Speech: speech normal Motor Exam: general weakness Psych thought process normal, cooperative and affect normal Appearance: appropriate Weight / BMI Weight Weight: 226 lb 13.69 oz Body Mass Index (BMI) 34.4 ABG / Lab / Microbiology Data 07/07/25 05:22 07/07/25 05:22 Laboratory: Laboratory Results - last 24 hr 07/06/25 17:31: POC Glucose 273 H 07/06/25 23:54: POC Glucose 139 H 07/07/25 05:22: WBC 10.2, RBC 4.61, Hgb 13.4, Hct 39.3 L, MCV 85.2, MCH 29.1, MCHC 34.1, RDW Std Deviation 41.6, RDW Coeff of Narcisa 13.4, Plt Count 212, MPV 10.6, Immature Gran % (Auto) 0.400, Neut % (Auto) 61.2, Lymph % (Auto) 23.6, M juan % (Auto) 12.7 H, Eos % (Auto) 1.7, Baso % (Auto) 0.4, Absolute Neuts (auto) 6.3, Absolute Lymphs (auto) 2.40, Nucleated RBC % 0, Sodium 139, Potassium 3.4, Chloride 102, Carbon Dioxide 24.8, Anion Gap 13, BUN 14, Creatinine 1.06, Estim Creat Clear Calc 93.70, Est GFR (MDRD) Non-Af 84, BUN/Creatinine Ratio 13.2, G lucose 207 H, Calcium 9.1 07/07/25 07:44: POC Glucose 205 H Radiography Diagnostic Testing: Radiology Impression Venous Doppler Study 07/06/25 05:25 Interpretation Summary Deep veins of the lower extremities are bilaterally patent and compressible segmentally. There is no evidence of deep vein thrombosis on either side. Valvular competence appears intact within the proximal deep venous systems bilaterally. The great saphenous veins appear bilaterally patent and compressible segmentally. Ordering Physician: Mitchell Deras Referring Physician: Sivan Bowie Performed By: Lety Canchola, [place], RVT D/C Instructions Discharge Activity: Return to Normal Activity Weight Bearing Status: Weight bearing as tolerated Call your doctor if you observe: Fever of 101 or Higher, Shortness of breath, Dizziness, Swelling in the ankles and Chest pain DC O2, CPAP, BIPAP Needs Home O2 Discharge instructions: No DC home with Oxygen: No Meaningful Use Info Meaningful Use Meaningful Use Diagnoses (Choose all that apply): AMI AMI/Post PCI/Angioplasty Aspirin given w/in 24hrs of arrival?: Yes ASA at discharge?: Yes Antiplatelet Therapy at Discharge:: Yes Statins at discharge?: Yes Michael/ARB at discharge?: Yes Beta Christi at discharge?: Yes Done w/ Acute WI measure.: Yes Documented LVEF (%): 25 Discharge Plan Admission Admit Date/Time: 07/06/25 00:15 Primary Reason for Your Visit: nstemi Attending Provider: Sheyla Ortega Primary Care Provider: Sivan Bowie Consulting Providers: Mitchell Deras; Eric Flores Instructions Patient Instructions: Heart Attack Dc, Heart Attack Meds Additional Instructions / Restrictions: cousnseled strongly to quit smoking Discharge Orders/Prescriptions Prescriptions: New clindamycin HCl [Cleocin HCl] 300 mg capsule 600 mg PO TID 7 Days Qty: 42 0RF Continued insulin degludec [Tresiba FlexTouch U-200] 200 unit/mL (3 mL) insulin pen 50 unit SUBCUT QHS 90 Days Qty: 22.5 1RF aspirin 81 MG tablet,chewable 81 mg PO DAILY loratadine 10 mg tablet 10 mg PO DAILY PRN (Reason: allergies) lisinopril 20 mg tablet 20 mg PO BID insulin lispro [Humalog KwikPen Insulin] 100 unit/mL Insulin Pen 20 unit subcut TIDAC PRN (Reason: DIABETES) guaifenesin [Mucus Relief ER] 1,200 mg Tablet Extended Release 12hr 600 mg PO BID albuterol sulfate 90 mcg/actuation HFA aerosol inhaler 2 puff INHALATION 4X/DAY PRN (Reason: Shortness Of Breath) Qty: 8.5 0RF carvedilol 25 mg tablet 25 mg PO BIDCM Qty: 180 3RF clonidine HCl 0.1 mg tablet 0.1 mg PO BID Qty: 180 3RF furosemide [Lasix] 20 mg tablet 60 mg PO DAILY Qty: 270 3RF atorvastatin 80 mg tablet 80 mg PO QHS Qty: 90 0RF ranolazine 1,000 mg tablet extended release 12 hr 1,000 mg PO BID Qty: 60 11RF isosorbide mononitrate 60 mg tablet extended release 24 hr 60 mg PO BID Qty: 180 3RF clopidogrel [Plavix] 75 mg tablet 75 mg PO DAILY Qty: 90 3RF amlodipine 10 mg tablet 10 mg PO DAILY Qty: 90 3RF nitroglycerin 0.4 mg tablet, sublingual 0.4 mg sublingual Q5-15M Qty: 25 3RF Referrals / Follow Up: Eric Flores MD [Med Staff - Active Staff] - Within 1 Month Sivan Bowie MD [Primary Care Provider] - Within 2 Weeks Disposition Disposition (needs filled in before D/C Order can be placed): Home, Self Care Charges/Coding Visit Charges Inpatient E&M: 31005 Disch Hosp >30min
--- NOTE | 2025-07-07 12:07 | CASEMGMT ---
Patient has order for discharge. RN CM in to discuss needs at discharge. Patient denies needs or help at discharge. Patient had no further questions or concerns.
--- NOTE | 2025-07-07 16:31 | CASEMGMT ---
Social Work- received notice that [facility]/[employer] met with pt. Pt has recently completed applications two separate times for [facility] and does not qualify. Heidi did complete [facility]CAP with pt. No additional resources requested. SHI Chacko
[2025-07-08 14:08] LABS: Vitamin D 1,25-Dihydroxy 16.8 pg/mL (24.8-81.5)
== END 2025-07-07 12:22 | disposition home or self-care (01) ==
LOC: ED 23:34 → PCU 07-06 00:53
PROVIDERS: Admitting Provider Internal Medicine; Emergency Provider Emergency Medicine; PCP Internal Medicine; Visit Provider Student in an Organized Health Care Education/Training Program
DX: I21.4 Non-ST elevation (NSTEMI) myocardial infarction (principal); I11.0 Hypertensive heart disease with heart failure; I50.22 Chronic systolic (congestive) heart failure; J44.89 Other specified chronic obstructive pulmonary disease; E11.65 Type 2 diabetes mellitus with hyperglycemia; Z79.4 Long term (current) use of insulin; I25.10 Atherosclerotic heart disease of native coronary artery without angina pectoris; K11.20 Sialoadenitis, unspecified; Z79.02 Long term (current) use of antithrombotics/antiplatelets; F17.210 Nicotine dependence, cigarettes, uncomplicated; Z86.718 Personal history of other venous thrombosis and embolism; Z95.5 Presence of coronary angioplasty implant and graft; E78.5 Hyperlipidemia, unspecified; Z79.899 Other long term (current) drug therapy; I25.5 Ischemic cardiomyopathy; I25.2 Old myocardial infarction; Z82.49 Family history of ischemic heart disease and other diseases of the circulatory system; Z68.35 Body mass index [BMI] 35.0-35.9, adult; E66.9 Obesity, unspecified; I16.1 Hypertensive emergency; Z71.6 Tobacco abuse counseling; R94.39 Abnormal result of other cardiovascular function study; Z79.82 Long term (current) use of aspirin
CPT/HCPCS: 36415; 70496; 70498; 71045; 78452; 80048; 80053; 80061; 80307; 81001; 82010; 82077; 82652; 82962; 83036; 83735; 83880; 84100; 84443; 84484; 85025; 85347; 85379; 92928; 92978; 92979; 93005; 93017; 93458; 93970; 96365; 96366; 96375; 99152; 99153; 99221; 99252; 99285; 99406; A9500; C1725; Q9967; A4216; C1753; C1769; C1874; C1887; C1894; C9600; G0378; G0463; J1327

== ENCOUNTER 2025-09-22 12:28 | Emergency (ER) | payer SELFPAY ==
[2021-06-01 14:28] VITALS: BMI 35.6
[2025-09-22 12:30] VITALS: BP 176/114; PULSE 73; RESP 18; TEMP 35.6; O2SAT 97; BMI 34.0
[2025-09-22 12:53] VITALS: BMI 34.0
--- NOTE | 2025-09-22 13:50 | RAD_ITS ---
PROCEDURE: RAD/Chest PA and Lateral
--- NOTE | 2025-09-22 13:50 | EKG12_ITS ---
Test Reason : NEURO
[2025-09-22 14:01] LABS: Hematocrit 41.9 % (40-54); Hemoglobin 14.3 g/dL (13.0-16.5); Immature Granulocytes Count 0.020 X10^3/uL (0.0-0.0); Mean Corp Hgb Conc 34.1 g/dL (32-36); Mean Corpuscular Volume 84.6 fL (80-94); Mean Platelet Vol. 10.9 fl (6.2-12.0); NRBC Flagged by Analyzer 0 % (0-5); Platelet Count 316 K/mm3 (150-450); RBC Distribution Width CV 13.1 % (11.6-14.6); RBC Distribution Width SD 40.4 fl (35.1-43.9); Red Blood Count 4.95 M/mm3 (4.6-6.2); White Blood Count 8.2 K/mm3 (4.4-11.0)
--- NOTE | 2025-09-22 14:05 | CT_ITS ---
PROCEDURE: CT/Brain/Head without Contrast
--- NOTE | 2025-09-22 14:07 | RAD_ITS ---
PROCEDURE: RAD/HIP, UNI W/ Pelvis 2-3 Views
[2025-09-22 14:19] LABS: Troponin T High Sensitivity 18 ng/L (<=22)
[2025-09-22 14:20] LABS: Anion Gap 11 (5-15); BUN 15 mg/dL (4-19); BUN/Creat Ratio 17.4 RATIO (10-20); Calcium,Total 9.4 mg/dL (7.6-11.0); Carbon Dioxide 26.2 mmol/L (21.0-32.0); Chloride 103 mmol/L (98-108); Estimated Creatinine Clearance 113.44 ml/min (50-250); Glucose 177 mg/dL (70-99); Potassium 3.6 mmol/L (3.3-5.1)
[2025-09-22 14:28] VITALS: BP 148/111; PULSE 78; RESP 16; O2SAT 100
[2025-09-22 15:24] LABS: Troponin T High Sens 2 HR 20 ng/L (<=22)
--- NOTE | 2025-09-22 15:42 | ED.VIS.STROK ---
HPI History of Present Illness Chief Complaint: Neuro S/Sx Narrative Narrative: Patient is a 55-year-old male with prior history of stroke (had 1 earlier this year and seen and evaluated our hospital), multiple heart attacks and stents as well as ongoing tobacco use however he is down to half a pack every 2 days. He is presenting with an episode of near syncope that occurred around 6 PM on Sunday night, 3 days ago with subsequent right lower extremity heaviness and weakness. Patient states he was outside with his when he suddenly felt very fuzzy. His right leg felt like it went numb and he had to hold onto the handle of the car and then to stand next to. He states he felt disoriented at this time and could not comprehend what his was saying or respond to her. His lowered him to the ground and he did not fall. He stayed there for about 5 or 10 minutes until he started feel better. He states that his leg started feel back to normal however after that he is continue to have a heavy and rubbery feeling to his leg. He states when he walks it feels like his leg might give out on him. He has some mild discomfort of his right hip. Is not really having pain. States he is on his leg for about start to feel little numb but otherwise denies any paresthesias or numbness to the leg. He is concerned that he might of had another stroke and came in for further evaluation. He denies any vision changes since then, upper extremity weakness, facial droop or speech changes. States his prior stroke presented with speech changes but the symptoms have since resolved. States he has been compliant with his medications. No other complaints or concerns at this time. Eyes any chest pain or difficulty breathing. [facility] Medical History Parotitis Leukocytosis Hyperglycemia due to type 2 diabetes mellitus Elevated troponin Cardiac LV ejection fraction 21-30% Non-ST elevation MO (NSTEMI) (07/06/25) CVA (cerebral vascular accident) Obesity (BMI 30-39.9) History of DVT (deep vein thrombosis) Respiratory insufficiency Elevated troponin Acute bronchitis COPD exacerbation Congestive heart failure Vitamin D deficiency Acute sinusitis, unspecified Left shoulder pain Insulin dependent diabetes mellitus Coronary artery disease Essential hypertension Cluster headache Migraine Headache Diabetes Obesity Community acquired pneumonia Smoker Asthma Myocardial infarct Ischemic cardiomyopathy Obesity (BMI 30.0-34.9) Chronic obstructive pulmonary disease (COPD) Nicotine dependence COPD (chronic obstructive pulmonary disease) Hyperlipidemia History of non-ST elevation myocardial infarction (NSTEMI) (11/22/20) Atherosclerosis of [place] coronary artery of [place] heart without angina pectoris Home Medications ?Medication ?Instructions ?Recorded ?Last Taken ?Type aspirin 81 mg chewable tablet 81 mg PO DAILY heart health 04/27/22 02/10/25 History loratadine 10 mg tablet 10 mg PO DAILY PRN allergies 06/26/22 Unknown History insulin degludec 200 unit/mL (3 50 unit (0.25 mL) subcut QHS blood 12/28/23 02/09/25 Rx mL) subcutaneous pen (Tresiba sugar 3 months #22.5 mL FlexTouch U-200 insulin) carvedilol 25 mg tablet 25 mg PO BIDCM [facility] #180 10/27/24 02/10/25 Rx tabs clonidine HCl 0.1 mg tablet 0.1 mg PO BID blood pressure #180 12/15/24 02/10/25 Rx tabs furosemide 20 mg tablet (Lasix) 60 mg (3 x 20 mg) PO DAILY #270 01/15/25 02/10/25 Rx tabs guaifenesin 1,200 mg tablet, 600 mg PO BID 02/10/25 02/10/25 History extended release 12 hr (Mucus Relief ER) insulin lispro 100 unit/mL 20 unit subcut TIDAC PRN DIABETES 02/10/25 02/10/25 History subcutaneous pen (Humalog KwikPen (U-100) Insulin) albuterol sulfate 90 mcg/actuation 2 puff inhalation 4X/DAY PRN 02/11/25 Unknown Rx aerosol inhaler Shortness Of Breath #8.5 grams atorvastatin 80 mg tablet 80 mg PO QHS cholesterol #90 tabs 02/11/25 Unknown Rx amlodipine 10 mg tablet 10 mg PO DAILY blood pressure #90 02/12/25 Unknown Rx tabs clopidogrel 75 mg tablet (Plavix) 75 mg PO DAILY anti platelet #90 02/12/25 Unknown Rx tabs isosorbide mononitrate 60 mg 60 mg PO BID heart #180 TABLETS 02/12/25 Unknown Rx tablet,extended release 24 hr ranolazine 1,000 mg 1,000 mg PO BID heart #60 tabs 02/12/25 Unknown Rx tablet,extended release,12 hr nitroglycerin 0.4 mg sublingual 0.4 mg sublingual Q5-15M chest 06/01/25 Unknown Rx tablet pain #25 tabs lisinopril 20 mg tablet 20 mg PO BID blood pressure 07/05/25 Unknown History clindamycin HCl 300 mg capsule 600 mg (2 x 300 mg) PO TID 7 days 07/07/25 Unknown Rx (Cleocin HCl) #42 caps Allergy/AdvReac Type Severity Reaction Status Date / Time amoxicillin trihydrate (From Allergy Rash Verified 09/22/25 12:29 Augmentin) potassium clavulanate (From Allergy Rash Verified 09/22/25 12:29 Augmentin) ticagrelor (From Brilinta) Allergy Shortness Verified 09/22/25 12:29 of breath codeine AdvReac Nausea Verified 09/22/25 12:29 Family History Sister Myocardial infarction, Onset Age: 41 Diabetes Mother COPD (chronic obstructive pulmonary disease) Asthma Rheumatoid arthritis CVA (cerebral vascular accident) Hypertension Grandmother Diabetes Surgical History History of coronary artery stent placement (07/06/25) History of hernia repair (2008) History of umbilical hernia repair (1971) History of neck surgery History of appendectomy Social History household members: spouse housing: house Smoking Status: Current every day smoker tobacco type: cigarettes Tobacco: How many years used: 20 Electronic Cigarette Use: not used second hand exposure: Yes alcohol intake: current alcohol intake frequency: 0-2 drinks per day Alcohol type: beer substance use type: does not use caffeine: Yes Type: carbonated beverages Number of servings: 2 and tea Number of servings: 6 what type of physical activity do you participate in: none ROS ROS ED Constitutional Constitutional ED: Denies chills or fever(s) Eyes Eyes: Reports blurry vision and other Details: Reports episode of fuzzy/blurry vision 3 days ago but none since ; Denies change in vision ENT ENT ED: Denies sore throat Cardiovascular Cardiovascular: Denies chest pain Respiratory/Chest Respiratory/Chest: Denies cough or dyspnea Gastrointestinal Gastrointestinal: Denies nausea or vomiting Musculoskeletal Musculoskeletal: Reports other Details: Mild right hip pain. Right lower extremity heaviness ; Denies arthralgias Integumentary Denies rash Neurologic Neurologic: Reports weakness; Denies headache(s) or paresthesias Psychiatric Psychiatric: Denies anxiety Hematologic/Lymphatic Hematologic/Lymphatic: Denies easy bleeding or easy bruising EXAM Physical Exam Const Vital Signs: 09/22/25 12:30 09/22/25 14:28 09/22/25 15:50 Temperature 96.1 F L 98.2 F Temperature Source Temporal Pulse Rate 73 78 88 Respiratory Rate 18 16 16 Blood Pressure 176/114 H 148/111 H 140/98 H Blood Pressure Mean 134 123 112 Pulse Ox 97 100 100 Oxygen Delivery Method Room Air Room Air Positive well nourished and well developed General Appearance ED: well developed and NAD HEENT Reports moist mucous membranes Eyes PERRL Neck supple and no JVD Chest Wall inspection of chest normal and palpation of chest normal Resp normal respiratory effort and clear to auscultation bilaterally Cardio no murmurs Rate: regular rate Rhythm: regular rhythm GI normal to inspection, nondistended, normoactive bowel sounds and soft to palpation Extremity normal to inspection Extremity Narrative: Very mild tenderness palpation of the right hip but no significant pain with range of motion of the hip or logroll. General Extremety ED: Negative for deformity or edema General Extremity: Negative for deformity or edema Neuro oriented x3, CN's II-XII intact bilaterally and no sensory deficits noted Neuro Narrative: NIH equals 1 for drift of the right lower extremity Patient does have drift of the right lower extremity but does not hit the bed. Sensation intact in all dermatomes. Normal proprioception with movement of the toes. Walks with a slightly limping gait due to the right leg. No foot drop appreciated. Pamela Coma Scale: document GCS findings Spontaneous Obeys Commands Oriented 15 Sensorium / Orientation: alert Speech: speech normal Motor Exam: Negative for general weakness Psych mental status grossly normal Skin no wounds Lesions: no lesions Rashes: no rashes MDM MDM MDM Narrative Medical decision making narrative: Patient is evaluated for 3 days of weakness to his right lower extremity. Has a significant history of vascular disease and was worried he could have had a stroke that caused his weakness. He is significant pain with this so lower suspicion for peripheral process however he is reporting some mild hip pain so obtain an x-ray of the hip as well as CT of the brain. Given his symptom started 3 days ago I do not think he requires a stroke alert or CTA at this time. In addition he had a CTA of his head and neck on 07/06/2025 which was reviewed and showed patent arteries throughout and no comment on any significant stenosis. He does have an occluded right A1 segment anterior cerebral artery however he is right A2 segment is patent via collateral. He has good distal pulses low suspicion of acute vascular occlusion/abnormality as the cause of his weakness of his leg. No skin changes or ischemic changes to his right foot. CT of the brain does not show any acute process. A high sensitive troponins are stable, he is mildly hyperglycemic but otherwise has a largely normal workup. I did discussed that I would recommend MRI for further stroke evaluation as it has been less than 5 days it is possible that the negative CT could be a false negative. Patient declines this. He states that getting an MRI probably will not change anything since his symptoms started 3 days ago and he is already on stroke medication. I did offer him admission regardless to discuss with neurology but he declined. Also voiced the fact that he does not have insurance as a reason he does not want to stay in the hospital. Is counseled that it is possible there could be a larger stroke or more severe process and that if he has any further or acute neurologic symptoms he needs to immediately return to the emergency room. Also discussed that I do not know why exactly he is having such weakness of his leg and do think this needs further evaluation. Is given outpatient referral for neurology encouraged follow-up with his primary care doctor. Counseled importance of taking his medications, discussed risk of further/progressive neurologic symptoms that could possibly be debilitating. He understands this. Is discharged home in stable condition. Patient is acting appropriately emergency room is capacity to make these medical decisions. Lab Data Attestation: I reviewed the patient's lab results. Labs: Laboratory Results - last 24 hr 09/22/25 09/22/25 09/22/25 12:49 12:59 14:50 WBC 8.2 RBC 4.95 Hgb 14.3 Hct 41.9 MCV 84.6 MCH 28.9 MCHC 34.1 RDW Std Deviation 40.4 RDW Coeff of Narcisa 13.1 Plt Count 316 MPV 10.9 Immature Gran % (Auto) 0.200 Neut % (Auto) 59.3 Lymph % (Auto) 29.0 Mccormick % (Auto) 9.1 Eos % (Auto) 1.9 Baso % (Auto) 0.5 Absolute Neuts (auto) 4.9 Absolute Lymphs (auto) 2.39 Nucleated RBC % 0 Sodium 140 Potassium 3.6 Chloride 103 Carbon Dioxide 26.2 Anion Gap 11 BUN 15 Creatinine 0.86 Estim Creat Clear Calc 113.44 Est GFR (MDRD) Non-Af 103 BUN/Creatinine Ratio 17.4 Glucose 177 H Calcium 9.4 Troponin T High Sens 18 Troponin T Hi Sens 2 Hr 20 POC Glucose 187 H Radiography Diagnostic Testing: Clinical Impression(s) from Imaging Studies Chest X-Ray 09/22/25 13:50 IMPRESSION: Mild pulmonary vascular congestion. Retrocardiac/left lower lobe opacity not excluded. Bibasilar subsegmental atelectasis. Reading Location: [facility] Brain CT 09/22/25 14:05 IMPRESSION: 1. No evidence of intracranial hemorrhage or acute ischemia. 2. Changes of chronic microvascular ischemia and volume loss. Small focus of encephalomalacia in the right hurtado radiata is unchanged. Reading Location: [facility] Hip/Pelvis X-Ray 09/22/25 14:07 IMPRESSION: Degenerative changes. No acute fracture or dislocation is seen. Reading Location: [facility] Rhythm Strip Rhythm Strip: Sinus Rhythm Rate: 65 Ectopy: None EKG Initial EKG: Attestation: I personally reviewed and interpreted this EKG as follows: Interpretation: Sinus Rhythm Comments: Normal sinus rhythm at a rate of 65 bpm Left axis deviation T wave inversions and lateral leads (1 and aVL) as well as leads II and aVF with no reciprocal changes Discharge Plan Triage Chief Complaint: Neuro S/Sx ED Provider: Leanne Yañez Dx/Rx/DC Orders Clinical Impression: Right leg weakness, History of stroke, Near syncope Instructions: ED Near-Fainting, Uncertain Cause, ED Weakness Uncertain Cause Prescriptions: No Action insulin degludec [Tresiba FlexTouch U-200] 200 unit/mL (3 mL) insulin pen 50 unit SUBCUT QHS 90 Days Qty: 22.5 1RF aspirin 81 MG tablet,chewable 81 mg PO DAILY loratadine 10 mg tablet 10 mg PO DAILY PRN (Reason: allergies) lisinopril 20 mg tablet 20 mg PO BID clindamycin HCl [Cleocin HCl] 300 mg capsule 600 mg PO TID 7 Days Qty: 42 0RF insulin lispro [Humalog KwikPen Insulin] 100 unit/mL Insulin Pen 20 unit subcut TIDAC PRN (Reason: DIABETES) guaifenesin [Mucus Relief ER] 1,200 mg Tablet Extended Release 12hr 600 mg PO BID albuterol sulfate 90 mcg/actuation HFA aerosol inhaler 2 puff INHALATION 4X/DAY PRN (Reason: Shortness Of Breath) Qty: 8.5 0RF carvedilol 25 mg tablet 25 mg PO BIDCM Qty: 180 3RF clonidine HCl 0.1 mg tablet 0.1 mg PO BID Qty: 180 3RF furosemide [Lasix] 20 mg tablet 60 mg PO DAILY Qty: 270 3RF atorvastatin 80 mg tablet 80 mg PO QHS Qty: 90 0RF ranolazine 1,000 mg tablet extended release 12 hr 1,000 mg PO BID Qty: 60 11RF isosorbide mononitrate 60 mg tablet extended release 24 hr 60 mg PO BID Qty: 180 3RF clopidogrel [Plavix] 75 mg tablet 75 mg PO DAILY Qty: 90 3RF amlodipine 10 mg tablet 10 mg PO DAILY Qty: 90 3RF nitroglycerin 0.4 mg tablet, sublingual 0.4 mg sublingual Q5-15M Qty: 25 3RF Primary Care Provider: Sivan Bowie Referrals: Sivan Bowie MD [Primary Care Provider, Internal Medicine] Ministerio Jacob MD [Non-Staff -Ordering Privileges, Neurology] Activity Restrictions/Additional Instructions: Your CT did not show signs of an acute stroke today however it is possible it is too soon. I did recommend an MRI for further evaluation of this but at this time you have decided that you do not want to stay for this. I do recommend that you follow-up outpatient with neurology. In addition I do not know what caused episode of almost passing out a couple days ago. Your workup however was otherwise largely normal/reassuring. Please make sure you continue to take your Plavix, aspirin and statin (atorvastatin) for secondary stroke prevention. Please follow-up outpatient with neurology and or your family doctor. Your blood sugar was mildly elevated today (177). If it anytime you change your mind and would like further evaluation/workup for stroke or redevelop any new neurologic or cardiac symptoms please do not hesitate to return to the emergency room. Print Language: Austrian Disposition Disposition: Home, Self Care Discharge Date/Time: 09/22/25 15:51 NIHSS NIHSS 1a. Level of Consciousness: 0 - Alert; keenly responsive 1b. LOC Questions: 0 - Answers BOTH questions correctly 1c. LOC Commands: 0 - Performs BOTH tasks correctly 2. Best Gaze: 0 - Normal 3. Visual: 0 - No visual loss 4. Facial Palsy: 0 - Normal symmetrical movements 5a. Left Arm: 0 - No drift; arm holds 90 (or 45) degrees for full 10 seconds 5b. Right Arm: 0 - No drift; arm holds 90 (or 45) degrees for full 10 seconds 6a. Left Le - No drift; leg holds 30-degree position for full 5 seconds 6b. Right Le - Drift; leg falls by the end of 5-seconds, but does not hit bed 7. Limb Ataxia: 0 - Absent 8. Sensory: 0 - Normal; no sensory loss 9. Best Language: 0 - No aphasia; normal 10. Dysarthria: 0 - Normal 11. Extinction and Inattention: 0 - No abnormality Total: 1 Stroke Questions Stroke Team Activated: No (Symptoms started 3 days ago)
[2025-09-22 15:50] VITALS: BP 140/98; PULSE 88; RESP 16; TEMP 36.8; O2SAT 100
== END 2025-09-22 15:51 | disposition home or self-care (01) ==
PROVIDERS: Emergency Provider Emergency Medicine; PCP Internal Medicine; Visit Provider Emergency Medicine
DX: R55 Syncope and collapse (principal); I11.0 Hypertensive heart disease with heart failure; I50.9 Heart failure, unspecified; J44.9 Chronic obstructive pulmonary disease, unspecified; Z79.4 Long term (current) use of insulin; E11.9 Type 2 diabetes mellitus without complications; R29.898 Other symptoms and signs involving the musculoskeletal system; Z86.73 Personal history of transient ischemic attack (TIA), and cerebral infarction without residual deficits; E78.5 Hyperlipidemia, unspecified; F17.210 Nicotine dependence, cigarettes, uncomplicated; I25.10 Atherosclerotic heart disease of native coronary artery without angina pectoris; I25.2 Old myocardial infarction; Z79.82 Long term (current) use of aspirin; Z79.899 Other long term (current) drug therapy; Z79.02 Long term (current) use of antithrombotics/antiplatelets; Z95.5 Presence of coronary angioplasty implant and graft; Z90.49 Acquired absence of other specified parts of digestive tract
CPT/HCPCS: 70450; 71046; 73502; 80048; 82962; 84484; 85025; 93005; 99283; A4216

== ENCOUNTER 2025-10-05 07:59 | Inpatient (IN) | payer SELFPAY ==
[2021-06-01 14:28] VITALS: BMI 35.6
[2025-10-05] VITALS (56 sets, daily range): BP systolic 82–248; BP diastolic 60–186; PULSE 10–137; RESP 11–38; TEMP 35.9–37.4; O2SAT 6–100; BMI 34.5; BMI 38.0
[2025-10-05] MEDS: Amiodarone 150 MG in Dextrose 5%-Water (100mL Bag) 100 ML 600 MG IV BOLUS (08:04)
[2025-10-05] MEDS: 0.9% Normal Saline (1000mL) 1,000 ML 999 ML IV (08:05)
--- NOTE | 2025-10-05 08:10 | EKG12_ITS ---
Test Reason : Blood Pressure : */* mmHG Vent. Rate : 119 BPM Atrial Rate : 119 BPM P-R Int : 180 ms QRS Dur : 114 ms QT Int : 326 ms P-R-T Axes : 74 88 70 degrees QTcB Int : 458 ms Sinus tachycardia Biatrial enlargement Minimal voltage criteria for LVH, may be normal variant ( Lacon product ) Lateral infarct , age undetermined Abnormal ECG Confirmed by BIRGIT EVANGELISTA, GENE ([id number]), book editor TESS PERRY ([id number]) on 10/06/2025 12:20:07 PM Referred By: Confirmed By: GENE GENAO MD
--- NOTE | 2025-10-05 08:10 | RAD_ITS ---
PROCEDURE: CHEST 1 VIEW (PORTABLE) 10/05/2025 REASON FOR EXAM: CHEST PAIN TECHNIQUE: Frontal view of the chest. COMPARISON: September 22, 2025 FINDINGS: Hardware is noted in the cervical spine. There is cardiomegaly with mild central vascular congestion and increased interstitial markings consistent with CHF. There is no pneumothorax. There is no new significant effusion. Aortic calcifications are visible. There is no acute bony abnormality. RAD/Chest 1 View (Portable) IMPRESSION: There is cardiomegaly with mild central vascular congestion and increased inter stitial markings consistent with CHF. Reading Location: [id number]
--- NOTE | 2025-10-05 08:11 | CT_ITS ---
PROCEDURE: CTA CHEST W/WO CONTRAST 10/05/2025 REASON FOR EXAM: PE CHF. Code blue. TECHNIQUE: Procedure Code: [id number] Modality: CT Procedure: CTA CHEST W/WO CONTRAST Multiplanar Sagittal and Coronal images were obtained. 3D post processing was performed CONTRAST: Isovue 370 VOLUME: 100 mL One or more dose reduction techniques were used (e.g., Automated exposure control, adjustment of the mA and/or kV according to patient size, use of iterative reconstruction technique). RADIATION DOSE SUMMARY: CTDlvol: 15 mGy DLP: 1410.25 mGycm COMPARISON: Prior chest radiograph done earlier in the day. FINDINGS: Hardware: Orogastric tube is seen within the stomach. Endotracheal tube is seen in-situ. Lymph nodes: Right hilar node measures upper limits of normal. Heart: Mild cardiomegaly. Coronary artery calcification. Thoracic Aorta: No thoracic aortic aneurysm or dissection. Pulmonary Vessels: No evidence of pulmonary embolism. Lungs and Airways: Patchy areas of airspace disease at the lung bases worse at the right lung base. Patchy infiltrate in the posterior aspect of the right upper lobe abutting the right minor fissure. Focal infiltrate also seen in the posterior aspect of the left upper lobe. Increased interstitial markings. Superimposed CHF should be ruled out. Pleura: No significant pleural effusion. Upper Abdomen: Mild degree of adrenal hyperplasia. Bones: Degenerative changes of the thoracic spine. CT/CTA Chest W/WO Contrast IMPRESSION: No evidence of pulmonary embolism. Coronary artery calcification. An enteric tube is seen within the stomach. Endotracheal tube within the trach ea. Patchy infiltrates as described. Findings suggestive of mild degree of CHF. Reading Location: [id number]
--- NOTE | 2025-10-05 08:15 | EKG12_ITS ---
Test Reason : CP Blood Pressure : */* mmHG Vent. Rate : 133 BPM Atrial Rate : 133 BPM P-R Int : 156 ms QRS Dur : 106 ms QT Int : 290 ms P-R-T Axes : 71 40 64 degrees QTcB Int : 431 ms Sinus tachycardia with Fusion complexes Possible Left atrial enlargement Minimal voltage criteria for LVH, may be normal variant ( Pranav product ) Septal infarct (cited on or before 22-Sep-2025) Abnormal ECG Confirmed by BIRGIT EVANGELISTA, GENE ([id number]), senior technical editor TESS PERRY ([id number]) on 10/06/2025 12:19:44 PM Referred By: JENNIFER Confirmed By: GENE GENAO MD
[2025-10-05 08:21] LABS: Hematocrit 51.3 % (40-54); Hemoglobin 16.9 g/dL (13.0-16.5); Immature Granulocytes Count 0.050 X10^3/uL (0.0-0.0); Mean Corp Hgb Conc 32.9 g/dL (32-36); Mean Corpuscular Volume 87.8 fL (80-94); Mean Platelet Vol. 10.7 fl (6.2-12.0); NRBC Flagged by Analyzer 0 % (0-5); POSITIVE DIFFERENTIAL YES; POSITIVE MORPHOLOGY YES; Platelet Count 313 K/mm3 (150-450); RBC Distribution Width CV 13.3 % (11.6-14.6); RBC Distribution Width SD 42.7 fl (35.1-43.9); Red Blood Count 5.84 M/mm3 (4.6-6.2); White Blood Count 16.1 K/mm3 (4.4-11.0)
[2025-10-05 08:23] LABS: Differential Indicated SCAN CRITERIA MET
[2025-10-05 08:29] LABS: Prothrombin Time (Protime)PT. 12.8 SECONDS (11.7-14.9)
[2025-10-05 08:30] LABS: Partial Thromboplast Time 24.1 Seconds (24.1-36.2)
[2025-10-05] MEDS: Propofol 10MG/Ml 1,000 MG/100 ML Bottle 6.1 MG CONT INF (08:35)
[2025-10-05] MEDS: Nitroglycerin (INPATIENT USE) 0.4 MG TAB.SUBL 0.12 MG SL (08:38)
--- NOTE | 2025-10-05 08:43 | RAD_ITS ---
PROCEDURE: CHEST 1 VIEW (PORTABLE) 10/05/2025 REASON FOR EXAM: INTUBATION TECHNIQUE: Frontal view of the chest. COMPARISON: Earlier on the same day. FINDINGS: No significant interval change. Ground-glass opacities are noted within both lungs, more pronounced on the right and concerning for airspace infiltrates. Stable cardiomegaly. Stable positioning of the lines and tubes. A 2 level anterior fusion of the visualized lower cervical spine is noted. RAD/Chest 1 View (Portable) IMPRESSION: As above. Reading Location: [id number]
--- NOTE | 2025-10-05 08:43 | RAD_ITS ---
PROCEDURE: CHEST 1 VIEW 10/05/2025 REASON FOR EXAM: NG INSERTION TECHNIQUE: Frontal view of the chest. COMPARISON: October 05, 2025 FINDINGS: There is an ET tube in position with its tip 9 cm above the level of the marilee. There is an enteric tube seen with its tip in the stomach. There is cardiomegaly with prominent central vascular markings and increased interstitial markings consistent with CHF. There is no pneumothorax or effusion. There is no acute bony abnormality. There is no visible atherosclerosis. RAD/Chest 1 View IMPRESSION: There is an ET tube in position with its tip 9 cm above the level of the marilee . There is an enteric tube seen with its tip in the stomach. There is cardiomegaly with prominent central vascular markings and increased in terstitial markings consistent with CHF. Reading Location: [facility]
--- NOTE | 2025-10-05 08:45 | CM.ED ---
Addendum entered by Elham Naik 10/05/25 10:10: Pt stabilized and at bedside after testing completed. SW offered ongoing support. appreciative. SW provided hand off to ED SW. Original Note: Social Work SW responded to ED Code Blue. was present at bedside. SW introduced self and role. supervisor byproducts clarified with that she wanted to remain in room during treatment. provided brief history; reported pt complaining of tightness in chest and drove pt to ED. Upon presentation to ED, pt went into cardiac arrest. reports pt has extensive cardiac history. SW provided ongoing emotional support and educated to as medical staff continued treating the pt. Pt regained consciousness. SW inquired to if pt had advance directives and denied. SW inquired about children and if wanted to call anyone. confirmed there are children, but denied calling them at this time, will wait further treatment. requested to contact her sales engagement manager at work. SW agreed. SW phoned Merry at [facility] to notify of 's absence from work this date. Merry understanding. Pt continued to remain conscious and talking, but agitated and challenging to complete necessary treatment. SW attempted to support pt but pt agitated with this worker. Pt denied bipap and requested intubation. SW assisted with explanations and requested Dr explain risks of intubation. explained; pt still agreed. SW inquired if wanted to remain at bedside for intubation. agreed. SW continued to provide emotional support. Once intubation was completed, SW offered for to contact children. agreed and went outside. SW to remain available for ongoing needs. 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
--- NOTE | 2025-10-05 08:50 | CT_ITS ---
PROCEDURE: BRAIN/HEAD WITHOUT CONTRAST 10/05/2025 REASON FOR EXAM: HTN TECHNIQUE: Procedure Code: CTBR Modality: CT Procedure: BRAIN/HEAD WITHOUT CONTRAST Coronal and Sagittal reconstruction series were provided. One or more dose reduction techniques were used (e.g., Automated exposure control, adjustment of the mA and/or kV according to patient size, use of iterative reconstruction technique. COMPARISON: 09/22/2025. FINDINGS: No acute intracranial hemorrhage. No midline shift. The ventricles are normal in size and configuration. No extra-axial fluid collection is identified. Old lacunar infarct within the right hurtado radiata, unchanged. No fracture. The calvarium is intact. Moderate-sized mucous retention cysts within the bilateral maxillary sinuses. CT/Brain/Head without Contrast IMPRESSION: No acute intracranial CT abnormality. Reading Location: [id number]
[2025-10-05 08:59] LABS: Anion Gap 15 (5-15); BUN 10 mg/dL (4-19); BUN/Creat Ratio 10.3 RATIO (10-20); Calcium,Total 9.7 mg/dL (7.6-11.0); Carbon Dioxide 24.0 mmol/L (21.0-32.0); Chloride 104 mmol/L (98-108); Estimated Creatinine Clearance 103.43 ml/min (50-250); Glucose 210 mg/dL (70-99); Magnesium 2.1 mg/dL (1.5-2.2); Potassium 4.5 mmol/L (3.3-5.1); Pro- Brain NATRIURETIC PEPTIDE 826 pg/mL (<=900); Troponin T High Sensitivity 19 ng/L (<=22)
[2025-10-05 09:09] LABS: Mucous, Urine 0 SEEN /hpf (<or=2+); Red Blood Cells-Urine 0 SEEN /hpf (0-5); Squamous Epithelial Cells - UA 0 SEEN /hpf (0-5)
[2025-10-05] MEDS: Nitroglycerin Infusion 250 ML 60 MG CONT INF (09:09)
[2025-10-05 09:12] LABS: Reactive Lymphocyte 3+
[2025-10-05] MEDS: Amiodarone 360 MG in Dextrose 5% Viaflo Bag 192.8 ML 33.3 MG CONT INF (09:13)
--- NOTE | 2025-10-05 09:14 | EKG12_ITS ---
Test Reason : CP Blood Pressure : */* mmHG Vent. Rate : 114 BPM Atrial Rate : 114 BPM P-R Int : 184 ms QRS Dur : 104 ms QT Int : 324 ms P-R-T Axes : 72 42 78 degrees QTcB Int : 446 ms Sinus tachycardia Biatrial enlargement Minimal voltage criteria for LVH, may be normal variant ( Gravette product ) Anteroseptal infarct (cited on or before 22-Sep-2025) ST & T wave abnormality, consider lateral ischemia Abnormal ECG Confirmed by BIRGIT EVANGELISTA, GENE ([id number]), movie editor TESS PERRY ([id number]) on 10/06/2025 12:19:58 PM Referred By: JENNIFER Confirmed By: GENE GENAO MD
[2025-10-05 09:22] LABS: Color, Urine Straw (Yellow); Glucose, Dipstick 1000 mg/dl (Normal); Ketone-Dipstick Negative (Negative); Leukocyte Esterase-Dipstick Negative /ul (Negative); Nitrite-Dipstick Negative (Negative); Occult Blood-Urine 10 /ul (Negative); Protein-Dipstick 30 mg/dl (Negative); Specific Gravity, Urine 1.010 (1.002-1.030); Urine Bilirubin Dipstick Negative (Negative)
[2025-10-05 09:23] LABS: Allen Test Positive; Base Excess 0 mmol/L (-2 to +2); FI02 75.0; PEEP 8; PO2 82 mmHG (75-100); RR 14; SITE R Radial; SO2 91 % (94-98)
--- NOTE | 2025-10-05 09:27 | ED.VIS.CHEST ---
HPI History of Present Illness Chief Complaint: Chest Pain Narrative Narrative: Chief complaint and HPI: 55-year-old male with past medical history of CAD status post multiple PCI on Plavix, CHF, HTN, COPD, DM2 presents for evaluation of chest pain and shortness of breath. History taken by given patient's critical condition. states that the patient has been short of breath over the last several days. Intermittently smokes cigarettes. Today woke up with shortness of breath and chest pain. Patient took 3 nitro prior to arrival. No aspirin. Associated symptom is diaphoresis and nausea and vomiting. Review of systems: See HPI Medications: As listed on the chart Allergies: As listed on the chart PFSH: Per chart Vital signs: As listed on the chart. Reviewed. Physical exam: Gen: Alert and oriented, distressed, yelling profanity, sitting at the edge of the bed Head: Normocephalic, atraumatic Eyes: No sclera icterus, conjunctiva clear ENT: Dry mucous membranes Neck: Trachea midline CV: Tachycardic, regular rhythm, no murmurs Resp: Lungs coarse bilaterally, dyspneic, tachypneic, 2 L nasal cannula GI: Abd soft, non-distended, non-tender Musc: Full ROM, no deformity Skin: Warm, diaphoretic Neuro: Alert, oriented, grossly intact Psych: Uncooperative, yelling profanity [facility] Medical History (Updated 10/05/25 @ 15:[address] Brennon Juarez, ) Parotitis Leukocytosis Hyperglycemia due to type 2 diabetes mellitus Elevated troponin Cardiac LV ejection fraction 21-30% CVA (cerebral vascular accident) Obesity (BMI 30-39.9) History of DVT (deep vein thrombosis) Respiratory insufficiency Elevated troponin Acute bronchitis COPD exacerbation Congestive heart failure Vitamin D deficiency Acute sinusitis, unspecified Left shoulder pain Insulin dependent diabetes mellitus Coronary artery disease Essential hypertension Cluster headache Migraine Headache Diabetes Obesity Community acquired pneumonia Smoker Asthma Myocardial infarct Ischemic cardiomyopathy Obesity (BMI 30.0-34.9) Chronic obstructive pulmonary disease (COPD) Nicotine dependence COPD (chronic obstructive pulmonary disease) Hyperlipidemia History of non-ST elevation myocardial infarction (NSTEMI) (11/22/20) Atherosclerosis of [place] coronary artery of [place] heart without angina pectoris Non-ST elevation [place] (NSTEMI) (07/06/25) Home Medications ?Medication ?Instructions ?Recorded ?Last Taken ?Type aspirin 81 mg chewable tablet 81 mg PO DAILY heart health 04/27/22 10/04/25 History loratadine 10 mg tablet 10 mg PO DAILY PRN allergies 06/26/22 Unknown History insulin degludec 200 unit/mL (3 50 unit (0.25 mL) subcut QHS blood 12/28/23 10/04/25 Rx mL) subcutaneous pen (Tresiba sugar 3 months #22.5 mL FlexTouch U-200 insulin) carvedilol 25 mg tablet 25 mg PO BIDCM heart health #180 10/27/24 10/04/25 Rx tabs clonidine HCl 0.1 mg tablet 0.1 mg PO BID blood pressure #180 12/15/24 10/04/25 Rx tabs furosemide 20 mg tablet (Lasix) 60 mg (3 x 20 mg) PO DAILY #270 01/15/25 10/04/25 Rx tabs insulin lispro 100 unit/mL 20 unit subcut TIDAC PRN DIABETES 02/10/25 10/04/25 History subcutaneous pen (Humalog KwikPen (U-100) Insulin) atorvastatin 80 mg tablet 80 mg PO QHS cholesterol #90 tabs 02/11/25 10/04/25 Rx amlodipine 10 mg tablet 10 mg PO DAILY blood pressure #90 02/12/25 10/04/25 Rx tabs clopidogrel 75 mg tablet (Plavix) 75 mg PO DAILY anti platelet #90 02/12/25 10/04/25 Rx tabs isosorbide mononitrate 60 mg 60 mg PO BID heart #180 TABLETS 02/12/25 10/04/25 Rx tablet,extended release 24 hr nitroglycerin 0.4 mg sublingual 0.4 mg sublingual Q5-15M chest 06/01/25 10/05/25 Rx tablet pain #25 tabs lisinopril 20 mg tablet 20 mg PO BID blood pressure 07/05/25 10/04/25 History Allergy/AdvReac Type Severity Reaction Status Date / Time amoxicillin trihydrate (From Allergy Rash Verified 09/22/25 12:29 Augmentin) potassium clavulanate (From Allergy Rash Verified 09/22/25 12:29 Augmentin) ticagrelor (From Brilinta) Allergy Shortness Verified 09/22/25 12:29 of breath codeine AdvReac Nausea Verified 09/22/25 12:29 Family History Sister Myocardial infarction, Onset Age: 41 Diabetes Mother COPD (chronic obstructive pulmonary disease) Asthma Rheumatoid arthritis CVA (cerebral vascular accident) Hypertension Grandmother Diabetes Surgical History (Updated 10/05/25 @ 15:08 by Mal Hughes) History of coronary artery stent placement (07/06/25) History of hernia repair (2008) History of umbilical hernia repair (1971) History of neck surgery History of appendectomy Social History household members: spouse housing: house Smoking Status: Current every day smoker tobacco type: cigarettes Tobacco: How many years used: 20 Electronic Cigarette Use: not used second hand exposure: Yes alcohol intake: current alcohol intake frequency: 0-2 drinks per day Alcohol type: beer substance use type: does not use caffeine: Yes Type: carbonated beverages Number of servings: 2 and tea Number of servings: 6 what type of physical activity do you participate in: none EXAM Physical Exam Const Vital Signs: 10/05/25 07:59 10/05/25 07:59 10/05/25 08:10 Temperature 98 F Temperature Source Oral Pulse Rate 137 H 118 H Respiratory Rate 18 Respiratory Effort Respiratory Pattern Blood Pressure 222/148 H 222/148 H Blood Pressure [1] 222/148 H Blood Pressure Mean 172 172 Blood Pressure Source Blood Pressure Position Blood Pressure Location Pulse Ox 99 Oxygen Delivery Method Nasal Cannula Nasal Cannula Oxygen Flow Rate (L/min) 2 6 Fraction of Inspired Oxygen (FIO2) 10/05/25 08:10 10/05/25 08:10 10/05/25 08:15 Temperature Temperature Source Pulse Rate 119 H Respiratory Rate 38 H Respiratory Effort Labored Respiratory Pattern Blood Pressure 236/169 H Blood Pressure [1] Blood Pressure Mean 191 Blood Pressure Source Blood Pressure Position Blood Pressure Location Pulse Ox 6 Oxygen Delivery Method Nasal Cannula Nasal Cannula Oxygen Flow Rate (L/min) 6 Fraction of Inspired Oxygen (FIO2) 10/05/25 08:30 10/05/25 08:36 10/05/25 08:36 Temperature Temperature Source Pulse Rate 129 H 129 H Respiratory Rate 33 H 14 Respiratory Effort Mechanically Ventilated Respiratory Pattern Normal Blood Pressure 248/186 H Blood Pressure [1] Blood Pressure Mean 206 Blood Pressure Source Blood Pressure Position Blood Pressure Location Pulse Ox 93 100 Oxygen Delivery Method Nasal Cannula Oxygen Flow Rate (L/min) 6 Fraction of Inspired Oxygen (FIO2) 10/05/25 08:36 10/05/25 08:38 10/05/25 08:45 Temperature Temperature Source Pulse Rate 123 H 122 H Respiratory Rate 17 Respiratory Effort Respiratory Pattern Blood Pressure 178/130 H 237/162 H 222/137 H Blood Pressure [1] Blood Pressure Mean 146 165 Blood Pressure Source Blood Pressure Position Blood Pressure Location Pulse Ox 100 Oxygen Delivery Method Mechanical Ventilator Mechanical Ventilator Oxygen Flow Rate (L/min) Fraction of Inspired Oxygen (FIO2) 10/05/25 09:09 10/05/25 09:13 10/05/25 09:15 Temperature Temperature Source Pulse Rate 118 H 118 H Respiratory Rate 26 H 19 H Respiratory Effort Respiratory Pattern Blood Pressure 222/137 H 239/153 H 221/137 H Blood Pressure [1] Blood Pressure Mean 181 165 Blood Pressure Source Blood Pressure Position Blood Pressure Location Pulse Ox 97 Oxygen Delivery Method Mechanical Ventilator Oxygen Flow Rate (L/min) Fraction of Inspired Oxygen (FIO2) 10/05/25 09:17 10/05/25 09:25 10/05/25 09:35 Temperature Temperature Source Pulse Rate 118 H 119 H Respiratory Rate 13 11 L Respiratory Effort Respiratory Pattern Blood Pressure 221/137 H 201/127 H 189/114 H Blood Pressure [1] Blood Pressure Mean 165 151 139 Blood Pressure Source Blood Pressure Position Blood Pressure Location Pulse Ox 96 100 Oxygen Delivery Method Mechanical Ventilator Mechanical Ventilator Oxygen Flow Rate (L/min) Fraction of Inspired Oxygen (FIO2) 10/05/25 09:45 10/05/25 09:48 10/05/25 09:50 Temperature Temperature Source Pulse Rate 117 H 113 H Respiratory Rate 16 16 Respiratory Effort Respiratory Pattern Blood Pressure 198/122 H 198/120 H 198/121 H Blood Pressure [1] Blood Pressure Mean 147 146 146 Blood Pressure Source Blood Pressure Position Blood Pressure Location Pulse Ox 99 Oxygen Delivery Method Mechanical Ventilator Mechanical Ventilator Oxygen Flow Rate (L/min) Fraction of Inspired Oxygen (FIO2) 10/05/25 09:54 10/05/25 10:00 10/05/25 10:07 Temperature Temperature Source Pulse Rate 112 H 110 H 112 H Respiratory Rate 16 16 16 Respiratory Effort Respiratory Pattern Blood Pressure 198/121 H 189/119 H 182/112 H Blood Pressure [1] Blood Pressure Mean 146 142 135 Blood Pressure Source Blood Pressure Position Blood Pressure Location Pulse Ox 98 97 96 Oxygen Delivery Method Mechanical Ventilator Mechanical Ventilator Mechanical Ventilator Oxygen Flow Rate (L/min) Fraction of Inspired Oxygen (FIO2) 10/05/25 10:13 10/05/25 10:19 10/05/25 10:24 Temperature 96.9 F L 96.8 F L 96.8 F L Temperature Source Core Core Core Pulse Rate 10 L 109 H 108 H Respiratory Rate 16 15 18 Respiratory Effort Respiratory Pattern Blood Pressure 179/108 H 180/112 H 176/113 H Blood Pressure [1] Blood Pressure Mean 131 134 134 Blood Pressure Source Blood Pressure Position Blood Pressure Location Pulse Ox Oxygen Delivery Method Mechanical Ventilator Mechanical Ventilator Mechanical Ventilator Oxygen Flow Rate (L/min) Fraction of Inspired Oxygen (FIO2) 75 10/05/25 10:29 10/05/25 10:30 10/05/25 10:40 Temperature 96.7 F L 96.7 F L Temperature Source Core Core Pulse Rate 108 H 109 H Respiratory Rate 22 H 19 H 24 H Respiratory Effort Respiratory Pattern Blood Pressure 174/110 H 167/111 H Blood Pressure [1] Blood Pressure Mean 131 129 Blood Pressure Source Blood Pressure Position Blood Pressure Location Pulse Ox 97 Oxygen Delivery Method Mechanical Ventilator Mechanical Ventilator Oxygen Flow Rate (L/min) Fraction of Inspired Oxygen (FIO2) 75 10/05/25 10:44 10/05/25 11:00 10/05/25 11:30 Temperature 96.9 F L 97 F L Temperature Source Core Core Pulse Rate 107 H 96 Respiratory Rate 22 H Respiratory Effort Respiratory Pattern Blood Pressure 151/99 H 149/67 H 121/72 H Blood Pressure [1] Blood Pressure Mean 116 94 88 Blood Pressure Source Blood Pressure Position Blood Pressure Location Pulse Ox Oxygen Delivery Method Mechanical Ventilator Mechanical Ventilator Oxygen Flow Rate (L/min) Fraction of Inspired Oxygen (FIO2) 10/05/25 11:35 10/05/25 12:10 10/05/25 14:19 Temperature 97.0 F L Temperature Source Pulse Rate 96 106 H 74 Respiratory Rate 22 H 18 Respiratory Effort Respiratory Pattern Normal Blood Pressure 134/88 H 142/89 H Blood Pressure [1] Blood Pressure Mean 103 106 Blood Pressure Source Blood Pressure Position Blood Pressure Location Pulse Ox 95 96 100 Oxygen Delivery Method Mechanical Ventilator Oxygen Flow Rate (L/min) Fraction of Inspired Oxygen (FIO2) 10/05/25 14:29 10/05/25 14:29 10/05/25 14:41 Temperature 98.4 F 98.4 F Temperature Source Core Core Pulse Rate 78 80 72 Respiratory Rate 16 16 18 Respiratory Effort Respiratory Pattern Normal Blood Pressure 103/74 103/72 Blood Pressure [1] Blood Pressure Mean 83 82 Blood Pressure Source Monitor Monitor Blood Pressure Position Supine Semi-Fowlers Blood Pressure Location Left Arm Left Arm Pulse Ox 97 98 Oxygen Delivery Method Mechanical Ventilator Mechanical Ventilator Oxygen Flow Rate (L/min) Fraction of Inspired Oxygen (FIO2) 45 45 10/05/25 14:44 10/05/25 14:46 Temperature 98.2 F 98.2 F Temperature Source Core Core Pulse Rate 79 79 Respiratory Rate 16 16 Respiratory Effort Respiratory Pattern Blood Pressure 90/67 90/64 Blood Pressure [1] Blood Pressure Mean 74 72 Blood Pressure Source Monitor Blood Pressure Position Semi-Fowlers Blood Pressure Location Left Arm Pulse Ox 97 95 Oxygen Delivery Method Mechanical Ventilator Mechanical Ventilator Oxygen Flow Rate (L/min) Fraction of Inspired Oxygen (FIO2) 45 45 MDM MDM MDM Narrative Medical decision making narrative: 55-year-old male with past medical history of CAD status post multiple PCI on Plavix, CHF, HTN, COPD, DM2 presents for evaluation of chest pain and shortness of breath. History taken by given patient's critical condition. states that the patient has been short of breath over the last several days. Intermittently smokes cigarettes. Today woke up with shortness of breath and chest pain. Patient took 3 nitro prior to arrival. No aspirin. Associated symptom is diaphoresis and nausea and vomiting. Patient arrived via private vehicle. Was in acute distress and therefore was taken immediately to a room. I immediately evaluated the patient. Patient is diaphoretic, tachypneic, and dyspneic. He is sitting at the edge of the bed. He has yelling profanities and being uncooperative with obtaining EKG. Aspirin ordered. While trying to obtain EKG patient became unresponsive and pulseless V-fib on the monitor. ACLS was immediately started with compressions and bag mask. Patient was shocked at 200 J and had ROSC. Almost immediately after ROSC, patient again was in ventricular fibrillation and patient was shocked at 200 J. ROSC was obtained. Patient alert and neurologically intact. IV bolus amiodarone started with IV drip. EKG shows sinus tachycardia with nonspecific ST changes. No ST elevation. Dr. Villeda with interventional cardiology was contacted and patient was discussed. Plan will be for Script Editor once we rule out PE. No heparin at this time per cardiology. Patient is hypertensive with SBP in the 220s, tachypneic, diaphoretic. Concern is for flash pulmonary edema. 3 sublingual nitroglycerin ordered with nitro drip, Lasix, BiPAP. Patient being uncooperative with BiPAP. Yelling profanities. Requesting intubation as he states he cannot tolerate BiPAP. Patient is tachypneic in the 40s. On nonrebreather. In respiratory distress. Risks and benefits to intubation was discussed with the patient as well as at bedside. Verbal consent was obtained. Patient was intubated and placed on ventilation with a PEEP of 8. OG and [place] placed. ABG with respiratory acidosis with a pH of 7.16. Will increase respiratory rate and tidal volume with reassessment. Blood pressure improving with nitroglycerin drip. Differential diagnosis includes but is not limited to ACS, PE, flash pulmonary edema, CHF, hypertension emergency, hypertension urgency, electrolyte abnormality. CBC with leukocytosis of 16.1. Patient has hemoconcentration with hemoglobin of 16.9. Platelet count unremarkable. Coagulation panel unremarkable. BMP unremarkable except for hyperglycemia. Lactic acid mildly elevated 2.3. Magnesium unremarkable. Troponin 19 with repeat of 41. BNP 825. TSH unremarkable. UA negative for UTI. CT of the brain shows no acute intracranial abnormality. This was obtained due to his severe hypertension. He does have a moderate-sized mucous retention cyst within the bilateral maxillary sinuses. Old lacunar infarct. CTA of the chest negative for PE. CAD. Patchy infiltrates. Findings suggestive of mild degree of CHF. Given concern for patchy infiltrates will treat for possible pneumonia. Rocephin and azithromycin ordered. Dr. Villeda was recontacted and patient was discussed. Plan will be for Script Editor. Patient discussed with the hospitalist who accepted admission to the ICU. Blood pressure improving on nitro drip. was updated of all the results and the plan and confirmed understanding. Originally was considering transferring to another hospital however given that patient needs cardiac Script Editor she is okay with patient staying here in the time being to have this performed. Patient was transferred to the Script Editor. EKG: Interpreted by me/EM physician: EKG shows sinus tachycardia with nonspecific ST changes. Heart rate 133. Repeat EKG shows sinus tachycardia again with nonspecific ST changes. Heart rate 114. Repeat EKG shows sinus tachycardia with nonspecific ST changes. Heart rate 119. Diagnostic: Interpreted by me/EM physician: Chest x-ray shows cardiomegaly with CHF. No large pleural effusion. No pneumonia or pneumothorax. Repeat chest x-ray shows ET tube in the trachea although high riding therefore ET tube was advanced [address] Cardiomegaly which CHF. After ET tube was advanced, repeat chest x-ray was obtained. ET tube still high riding however given how far it has been advanced will hold off on advancing more at this time given patient is oxygenating well. CHF. Endotracheal Intubation Indiction: Respiratory Distress Consent: Risks, benefits, and alternatives discussed with patient Procedure: The patient was on a commercial construction superintendent including continuous pulse oximetry. Rapid Sequence Intubation was conducted. The patient received 20 mg of Etomidate for induction and 80 mg of Rocuronium for adequate paralysis. Patient's vocal cords were very anterior making it difficult to intubate/pass the ET tube. Using a glide laryngoscope and a size 7.5 endotracheal tube with stylet, the patient was intubated on the second attempt. The stylet was removed, and the cuff balloon was inflated. Appropriate endotracheal tube position was confirmed by direct visualization of vocal cord passage, fogging of the tube, CO2 colorimetric indicator and symmetric breath sounds. The tube was secured originally at 23 cm at the lips. 60 minutes of critical care time utilized in managing the patient. This is due to high probability of and deterioration of the patient based on the patient's condition and excludes any separately billable procedures. Impression: 1. Cardiopulmonary arrest secondary to ventricular fibrillation with ROSC, suspected ACS 2. Acute hypoxic respiratory failure/respiratory distress requiring intubation 3. Flash pulmonary edema 4. CHF 5. Mild lactic acidosis Lab Data Labs: Laboratory Results - last 24 hr 10/05/25 10/05/25 10/05/25 08:13 08:54 09:01 WBC 16.1 H RBC 5.84 Hgb 16.9 H Hct 51.3 MCV 87.8 MCH 28.9 MCHC 32.9 RDW Std Deviation 42.7 RDW Coeff of Narcisa 13.3 Plt Count 313 MPV 10.7 Immature Gran % (Auto) 0.300 Neut % (Auto) 49.3 Lymph % (Auto) 38.3 [place] % (Auto) 9.5 Eos % (Auto) 2.0 Baso % (Auto) 0.6 Absolute Neuts (auto) 7.9 H Absolute Lymphs (auto) 6.18 H Nucleated RBC % 0 Reactive Lymphocytes 3+ PT 12.8 INR 0.9 APTT 24.1 Activated Clotting Time Sodium 144 Potassium 4.5 Chloride 104 Carbon Dioxide 24.0 Anion Gap 15 BUN 10 Creatinine 0.94 Estim Creat Clear Calc 103.43 Est GFR (MDRD) Non-Af 96 BUN/Creatinine Ratio 10.3 Glucose 210 H Lactic Acid 2.3 H* Calcium 9.7 Magnesium 2.1 Troponin T High Sens 19 Troponin T Hi Sens 2 Hr NT pro BNP II 826 TSH 4.120 Urine Color Straw Urine Clarity Clear Urine pH 6.5 Ur Specific [place] 1.010 Urine Protein 30 H Urine Glucose (UA) 1000 H Urine Ketones Negative Urine Occult Blood 10 H Urine Nitrite Negative Urine Bilirubin Negative Urine Urobilinogen Normal Ur Leukocyte Esterase Negative Urine RBC 0 SEEN Urine WBC 0 SEEN Ur Squamous Epith Cells 0 SEEN Urine Bacteria 0 SEEN Urine Mucus 0 SEEN 10/05/25 10/05/25 10/05/25 10:07 13:43 14:43 WBC RBC Hgb Hct MCV MCH MCHC RDW Std Deviation RDW Coeff of Narcisa Plt Count MPV Immature Gran % (Auto) Neut % (Auto) Lymph % (Auto) [place] % (Auto) Eos % (Auto) Baso % (Auto) Absolute Neuts (auto) Absolute Lymphs (auto) Nucleated RBC % Reactive Lymphocytes PT INR APTT Activated Clotting Time 184 H Sodium Potassium Chloride Carbon Dioxide Anion Gap BUN Creatinine Estim Creat Clear Calc Est GFR (MDRD) Non-Af BUN/Creatinine Ratio Glucose Lactic Acid 1.1 Calcium Magnesium Troponin T High Sens Troponin T Hi Sens 2 Hr 41 H NT pro BNP II TSH Urine Color Urine Clarity Urine pH Ur Specific [place] Urine Protein Urine Glucose (UA) Urine Ketones Urine Occult Blood Urine Nitrite Urine Bilirubin Urine Urobilinogen Ur Leukocyte Esterase Urine RBC Urine WBC Ur Squamous Epith Cells Urine Bacteria Urine Mucus ABG Data ABG results: ABG 10/05/25 10/05/25 09:19 10:42 Specimen Type ART ART Sample Site R Radial R Radial pH 7.16 L* 7.25 L Bicarbonate Actual 28.6 H 28.7 H Total CO2 31 31 Base Excess 0 1 O2 Saturation 91 L 94 O2 % 75.0 65.0 ABG pCO2 80.4 H* 65.9 H ABG pO2 82 83 [place] Test Positive Positive Respiration Rate 14 16 O2 Delivery Device Adult Vent Adult Vent Vent Mode AC AC Tidal Volume 450.0 500.0 POC PEEP 8 8 Crit Call To/Read Back Yes Blood Gas Notified Whom laxmi Blood Gas Notified Time 09:21:26 Radiography Diagnostic Testing: Clinical Impression(s) from Imaging Studies Chest X-Ray 10/05/25 08:10 IMPRESSION: There is cardiomegaly with mild central vascular congestion and increased interstitial markings consistent with CHF. Reading Location: [facility] Chest CTA 10/05/25 08:11 IMPRESSION: No evidence of pulmonary embolism. Coronary artery calcification. An enteric tube is seen within the stomach. Endotracheal tube within the trachea. Patchy infiltrates as described. Findings suggestive of mild degree of CHF. Reading Location: [id number] Chest X-Ray 10/05/25 08:43 IMPRESSION: As above. Reading Location: [id number] Chest X-Ray 10/05/25 08:43 IMPRESSION: There is an ET tube in position with its tip 9 cm above the level of the marilee. There is an enteric tube seen with its tip in the stomach. There is cardiomegaly with prominent central vascular markings and increased interstitial markings consistent with CHF. Reading Location: [facility] Brain CT 10/05/25 08:50 IMPRESSION: No acute intracranial CT abnormality. Reading Location: [id number] Echocardiogram 10/05/25 11:33 Interpretation Summary The left ventricular ejection fraction is 35 %. Moderate assymetric septal hypertrophy. Moderately severe segmental systolic dysfunction (see wall motion). Mild (1+) mitral valve insufficiency. Mild (1+) tricuspid valve insufficiency. Ordering Physician: Luis Villeda Referring Physician: Sivan Bowie Performed By: Ioana Gu RDCS Chest X-Ray 10/05/25 13:25 IMPRESSION: ETT tip is 6 cm above the marilee. NG tube tip in the body of the stomach No acute pulmonary process Reading Location: [id number] Discharge Plan Disposition Disposition: Acute Care Hospital [facility] Discharge Date/Time: 10/05/25 12:21
--- NOTE | 2025-10-05 10:28 | CM.ED ---
Social Work SW entered room, introduced self to patients and explained role with hospital. SW offered continued support as needed. was tearful but stated being okay for now, SW let know SW would be available throughout the day should she need anything. expressed gratitude. Doris Christopher, [employer] DRIVER, ALTERNATIVE ENERGY TECHNICIAN
[2025-10-05] MEDS: Nitroglycerin Infusion 250 ML 180 MG CONT INF (10:44)
[2025-10-05 10:46] LABS: Allen Test Positive; Base Excess 1 mmol/L (-2 to +2); FI02 65.0; PEEP 8; PO2 83 mmHG (75-100); RR 16; SITE R Radial; SO2 94 % (94-98)
[2025-10-05 10:57] LABS: Troponin T High Sens 2 HR 41 ng/L (<=22)
--- NOTE | 2025-10-05 11:02 | PCM.CONS.C ---
Assessment & Plan Assessment/Plan (1) Cardiac arrest with ventricular fibrillation: PLAN: Extensive history of coronary artery disease. History of LV systolic dysfunction. Recommend coronary angiography and possible intervention. Risks benefits explained to . She understands these and wishes to proceed. (2) Coronary artery disease: PLAN: History of coronary artery disease with multiple percutaneous intervention in the past. See #1 above. (3) Acute on chronic systolic congestive heart failure, NYHA class 4: PLAN: Blood pressure controlled. Diuretics. (4) Left ventricular systolic dysfunction (LVSD): PLAN: See #1 above. Check echocardiogram. Will recommend ICD implant. (5) Hypertension: PLAN: History of noncompliance with medications. Resume meds. (6) Dyslipidemia: PLAN: Statins. (7) Chronic obstructive pulmonary disease (COPD): QUALIFIERS: COPD type: unspecified COPD Qualified Code(s): J44.9 - Chronic obstructive pulmonary disease, unspecified PLAN: As per internal medicine. (8) Nicotine dependence: QUALIFIERS: Nicotine product type: cigarettes Substance use status: uncomplicated Qualified Code(s): F17.210 - Nicotine dependence, cigarettes, uncomplicated PLAN: Quit smoking. (9) Diabetes: QUALIFIERS: Diabetes mellitus type: type 2 Diabetes mellitus roasterman insulin use: with roasterman use Diabetes mellitus complication status: with hyperglycemia Qualified Code(s): E11.65 - Type 2 diabetes mellitus with hyperglycemia; Z79.4 - terminologist (current) use of insulin PLAN: As per internal medicine. HPI Consult Data Date of Consult: 10/05/25 HPI Narrative Reason for Consultation: V. Fib HPI Narrative: 55-year-old gentleman 55-year-old gentleman with past medical history significant for coronary artery disease status post multiple percutaneous interventions in the past, hypertension, COPD, diabetes mellitus and dyslipidemia. Questionable compliance with medications. Presented to the emergency room with complaints of shortness of breath and chest pain over the last few days. Upon arrival in the emergency room, patient was noted to be in respiratory distress. Shortly after arriving in the emergency room, he has had a V-fib cardiac arrest. He was successfully defibrillated with 2 shocks. He was also intubated. Presently on a ventilator. Per patient's , he was taking some of his medications and not taking some as he had ran out. ECG showed sinus tachycardia with poor R wave progression across precordial leads. CT scan of the chest showed pulmonary edema. No pulmonary embolism noted. Markedly hypertensive. Presently on nitroglycerin infusion. [facility] Medical History (Updated 10/05/25 @ 11:[address] Luis Villeda MD) Diabetes Nicotine dependence Parotitis Leukocytosis Hyperglycemia due to type 2 diabetes mellitus Elevated troponin Cardiac LV ejection fraction 21-30% Non-ST elevation MA (NSTEMI) (07/06/25) CVA (cerebral vascular accident) Obesity (BMI 30-39.9) History of DVT (deep vein thrombosis) Respiratory insufficiency Elevated troponin Acute bronchitis COPD exacerbation Congestive heart failure Vitamin D deficiency Acute sinusitis, unspecified Left shoulder pain Insulin dependent diabetes mellitus Coronary artery disease Essential hypertension Cluster headache Migraine Headache Obesity Community acquired pneumonia Smoker Asthma Myocardial infarct Ischemic cardiomyopathy Obesity (BMI 30.0-34.9) Chronic obstructive pulmonary disease (COPD) COPD (chronic obstructive pulmonary disease) Hyperlipidemia History of non-ST elevation myocardial infarction (NSTEMI) (11/22/20) Atherosclerosis of [place] coronary artery of [place] heart without angina pectoris Home Medications ?Medication ?Instructions ?Recorded ?Last Taken ?Type aspirin 81 mg chewable tablet 81 mg PO DAILY heart health 04/27/22 10/04/25 History loratadine 10 mg tablet 10 mg PO DAILY PRN allergies 06/26/22 Unknown History insulin degludec 200 unit/mL (3 50 unit (0.25 mL) subcut QHS blood 12/28/23 10/04/25 Rx mL) subcutaneous pen (Tresiba sugar 3 months #22.5 mL FlexTouch U-200 insulin) carvedilol 25 mg tablet 25 mg PO BIDCM heart health #180 10/27/24 10/04/25 Rx tabs clonidine HCl 0.1 mg tablet 0.1 mg PO BID blood pressure #180 12/15/24 10/04/25 Rx tabs furosemide 20 mg tablet (Lasix) 60 mg (3 x 20 mg) PO DAILY #270 01/15/25 10/04/25 Rx tabs insulin lispro 100 unit/mL 20 unit subcut TIDAC PRN DIABETES 02/10/25 10/04/25 History subcutaneous pen (Humalog KwikPen (U-100) Insulin) atorvastatin 80 mg tablet 80 mg PO QHS cholesterol #90 tabs 02/11/25 10/04/25 Rx amlodipine 10 mg tablet 10 mg PO DAILY blood pressure #90 02/12/25 10/04/25 Rx tabs clopidogrel 75 mg tablet (Plavix) 75 mg PO DAILY anti platelet #90 02/12/25 10/04/25 Rx tabs isosorbide mononitrate 60 mg 60 mg PO BID heart #180 TABLETS 02/12/25 10/04/25 Rx tablet,extended release 24 hr nitroglycerin 0.4 mg sublingual 0.4 mg sublingual Q5-15M chest 06/01/25 10/05/25 Rx tablet pain #25 tabs lisinopril 20 mg tablet 20 mg PO BID blood pressure 07/05/25 10/04/25 History Allergy/AdvReac Type Severity Reaction Status Date / Time amoxicillin trihydrate (From Allergy Rash Verified 09/22/25 12:29 Augmentin) potassium clavulanate (From Allergy Rash Verified 09/22/25 12:29 Augmentin) ticagrelor (From Brilinta) Allergy Shortness Verified 09/22/25 12:29 of breath codeine AdvReac Nausea Verified 09/22/25 12:29 Family History Sister Myocardial infarction, Onset Age: 41 Diabetes Mother COPD (chronic obstructive pulmonary disease) Asthma Rheumatoid arthritis CVA (cerebral vascular accident) Hypertension Grandmother Diabetes Surgical History History of coronary artery stent placement (07/06/25) History of hernia repair (2008) History of umbilical hernia repair (1971) History of neck surgery History of appendectomy Social History household members: spouse housing: house Smoking Status: Current every day smoker tobacco type: cigarettes Tobacco: How many years used: 20 Electronic Cigarette Use: not used second hand exposure: Yes alcohol intake: current alcohol intake frequency: 0-2 drinks per day Alcohol type: beer substance use type: does not use caffeine: Yes Type: carbonated beverages Number of servings: 2 and tea Number of servings: 6 what type of physical activity do you participate in: none Physical Exam Narrative Sedated on ventilator. Heart sounds 1 and 2 noted. Tachycardic. Chest clear to auscultation anteriorly. Trace bilateral ankle edema. Objective Data Vital Signs: Vital Signs Temp Pulse Resp BP Pulse Ox O2 Del Method O2 Flow Rate 96.7 F L 109 H 19 H 151/99 H 97 Mechanical Ventilator 6 10/05/25 10:30 10/05/25 10:30 10/05/25 10:30 10/05/25 10:44 10/05/25 10:29 10/05/25 10:30 10/05/25 08:30 FiO2 75 10/05/25 10:29 Oxygen Flow Rate (L/min) 6 Oxygen Delivery Method Mechanical Ventilator Weight: 222 lb 7.143 oz Body Mass Index (BMI) 34.5 Intake & Output: Intake and Output for Last 24 Hours 10/03/25 10/04/25 10/05/25 23:59 23:59 23:59 Intake Total 364.61 / 364.61 Balance 364.61 / 364.61 Lab / Micro Data 10/05/25 08:13 10/05/25 08:13 Labs: Laboratory Results - last 24 hr 10/05/25 08:13: WBC 16.1 H, RBC 5.84, Hgb 16.9 H, Hct 51.3, MCV 87.8, MCH 28.9, MCHC 32.9, RDW Std Deviation 42.7, RDW Coeff of Narcisa 13.3, Plt Count 313, MPV 10.7, Immature Gran % (Auto) 0.300, Neut % (Auto) 49.3, Lymph % (Auto) 38.3, [place] % (Auto) 9.5, Eos % (Auto) 2.0, Baso % (Auto) 0.6, Absolute Neuts (auto) 7.9 H, Absolute Lymphs (auto) 6.18 H, Nucleated RBC % 0, Reactive Lymphocytes 3+, PT 12.8, INR 0.9, APTT 24.1, Sodium 144, Potassium 4.5, Chloride 104, Carbon Dioxide 24.0, Anion Gap 15, BUN 10, Creatinine 0.94, Estim Creat Clear Calc 103.43, Est GFR (MDRD) Non-Af 96, BUN/Creatinine Ratio 10.3, Glucose 210 H, Calcium 9.7, Magnesium 2.1, Troponin T High Sens 19, NT pro BNP II 826, TSH 4.120 10/05/25 08:54: Lactic Acid 2.3 H* 10/05/25 09:01: Urine Color Straw, Urine Clarity Clear, Urine pH 6.5, Ur Specific [place] 1.010, Urine Protein 30 H, Urine Glucose (UA) 1000 H, Urine Ketones Negative, Urine Occult Blood 10 H, Urine Nitrite Negative, Urine Bilirubin Negative, Urine Urobilinogen Normal, Ur Leukocyte Esterase Negative, Urine RBC 0 SEEN, Urine WBC 0 SEEN, Ur Squamous Epith Cells 0 SEEN, Urine Bacteria 0 SEEN, Urine Mucus 0 SEEN 10/05/25 10:07: Troponin T Hi Sens 2 Hr 41 H ABG Data ABG results: ABG 10/05/25 10/05/25 09:19 10:42 Specimen Type ART ART Sample Site R Radial R Radial pH 7.16 L* 7.25 L Bicarbonate Actual 28.6 H 28.7 H Total CO2 31 31 Base Excess 0 1 O2 Saturation 91 L 94 O2 % 75.0 65.0 ABG pCO2 80.4 H* 65.9 H ABG pO2 82 83 [place] Test Positive Positive Respiration Rate 14 16 O2 Delivery Device Adult Vent Adult Vent Vent Mode AC AC Tidal Volume 450.0 500.0 POC PEEP 8 8 Crit Call To/Read Back Yes Blood Gas Notified [facility] Blood Gas Notified Time 09:21:26 Cardiology Labs/Tests 10/05/25 08:13: WBC 16.1 H, RBC 5.84, Hgb 16.9 H, Hct 51.3, MCV 87.8, MCH 28.9, MCHC 32.9, Plt Count 313, MPV 10.7, Immature Gran % (Auto) 0.300, Neut % (Auto) 49.3, Lymph % (Auto) 38.3, [place] % (Auto) 9.5, Eos % (Auto) 2.0, Baso % (Auto) 0.6, Absolute Neuts (auto) 7.9 H, Nucleated RBC % 0, PT 12.8, INR 0.9, APTT 24.1, Sodium 144, Potassium 4.5, Chloride 104, Carbon Dioxide 24.0, Anion Gap 15, BUN 10, Creatinine 0.94, Est GFR (MDRD) Non-Af 96, BUN/Creatinine Ratio 10.3, Glucose 210 H, Calcium 9.7, Magnesium 2.1 10/05/25 08:54: Lactic Acid 2.3 H* 10/05/25 09:01: Urine Color Straw, Urine Clarity Clear, Urine pH 6.5, Ur Specific [place] 1.010, Urine Protein 30 H, Urine Glucose (UA) 1000 H, Urine Ketones Negative, Urine Occult Blood 10 H, Urine Nitrite Negative, Urine Bilirubin Negative, Urine Urobilinogen Normal, Ur Leukocyte Esterase Negative, Urine RBC 0 SEEN, Urine WBC 0 SEEN 10/05/25 09:19: pH 7.16 L*, Bicarbonate Actual 28.6 H, Base Excess 0, O2 Saturation 91 L, ABG pCO2 80.4 H*, ABG pO2 82, [place] Test Positive 10/05/25 10:42: pH 7.25 L, Bicarbonate Actual 28.7 H, Base Excess 1, O2 Saturation 94, ABG pCO2 65.9 H, ABG pO2 83, [place] Test Positive Rhythm: EKG: ECHO: Stress Test: Cardiac Cath: PCI: CT Surgery: Holter monitor: EPS: PPM: CXR: Chest CT Scan: Radiography Diagnostic Testing: Radiology Impression Chest X-Ray 10/05/25 08:10 IMPRESSION: There is cardiomegaly with mild central vascular congestion and increased interstitial markings consistent with CHF. Reading Location: [facility] Chest CTA 10/05/25 08:11 IMPRESSION: No evidence of pulmonary embolism. Coronary artery calcification. An enteric tube is seen within the stomach. Endotracheal tube within the trachea. Patchy infiltrates as described. Findings suggestive of mild degree of CHF. Reading Location: [id number] Chest X-Ray 10/05/25 08:43 IMPRESSION: As above. Reading Location: [id number] Chest X-Ray 10/05/25 08:43 IMPRESSION: There is an ET tube in position with its tip 9 cm above the level of the marilee. There is an enteric tube seen with its tip in the stomach. There is cardiomegaly with prominent central vascular markings and increased interstitial markings consistent with CHF. Reading Location: [facility] Brain CT 10/05/25 08:50 IMPRESSION: No acute intracranial CT abnormality. Reading Location: [id number] [place] Risk Score for UA/STEMI Assesmment (YES = 1) Risk Stratification Applicable: No
[2025-10-05] MEDS: fentaNYL 100 MCG/2 ML Ampul 50 MCG IV (11:21)
--- NOTE | 2025-10-05 11:33 | ECHOD_ITS ---
Reason For Study Reason For Study: Cardiac arrest Procedure This was a 2D Doppler, Color Flow transthoracic echocardiogram. Exam performed portable in ED. Left Ventricle Normal LV size. Moderate assymetric septal hypertrophy. Moderately severe segmental systolic dysfunction (see wall motion). The left ventricular ejection fraction is 35 %. The apex is severely hypokinetic. Right Ventricle Normal RV size. Normal systolic function. Atria The left and right atria are normal. Mitral Valve Normal mitral valve. Mild (1+) mitral valve insufficiency. Tricuspid Valve Normal tricuspid valve. Mild (1+) tricuspid valve insufficiency. Pulmonary artery systolic pressure is 47 mmHg. Aortic Valve Trisinus/trileaflet aortic valve. Pulmonic Valve Normal pulmonic valve. Great Vessels Normal sized aortic root. Pericardium/Pleural Trivial pericardial effusion. There are no echocardiographic indications of cardiac tamponade. MMode/2D Measurements & Calculations LVIDd: 5.2 cm IVSd: 1.5 cm Ao root diam: 3.9 cm LVIDs: 3.9 cm LVPWd: 1.2 cm RVDd: 3.1 cm FS: 24.8 % LAV(MOD-bp): 38.8 ml LVAd ap4: 33.9 cm2 LVAd ap2: 33.2 cm2 LAV(MOD-bp) Indexed: 18.1 ml/m2 LVLd ap4: 9.1 cm LVLd ap2: 9.5 cm LAV(MOD-sp2): 52.0 ml EDV(MOD-sp4): 104.0 ml EDV(MOD-sp2): 97.4 ml LAV(MOD-sp4): 25.6 ml EDV(sp4-el): 107.8 ml EDV(sp2-el): 98.2 ml LVAs ap4: 27.4 cm2 LVAs ap2: 26.7 cm2 LVLs ap4: 8.9 cm LVLs ap2: 9.0 cm ESV(MOD-sp4): 68.4 ml ESV(MOD-sp2): 63.3 ml ESV(sp4-el): 71.3 ml ESV(sp2-el): 67.5 ml EF(MOD-sp4): 34.3 % EF(MOD-sp2): 35.0 % EF(sp4-el): 33.9 % SV(MOD-sp4): 35.7 ml SV(MOD-sp2): 34.1 ml SV(sp4-el): 36.5 ml SI(MOD-sp4): 16.7 ml/m2 SI(MOD-sp2): 16.0 ml/m2 LA A4 area: 12.3 cm2 LA dimension(2D): 4.3 cm RA A4 area: 11.8 cm2 Doppler Measurements & Calculations MV E max pancho: 112.5 cm/sec Lat Peak E' Pancho: 8.5 cm/sec Med Peak E' Pancho: 8.5 cm/sec E/E' lat: 13.3 E/E' med: 13.3 Ao V2 max: 147.5 cm/sec LV V1 max: 114.4 cm/sec PA V2 max: 140.2 cm/sec Ao max P.7 mmHg LV V1 max P.2 mmHg TR max pancho: 313.8 cm/sec TR max P.4 mmHg ECHO/Echo Complete Interpretation Summary The left ventricular ejection fraction is 35 %. Moderate assymetric septal hypertrophy. Moderately severe segmental systolic dysfunction (see wall motion). Mild (1+) mitral valve insufficiency. Mild (1+) tricuspid valve insufficiency. Ordering Physician: Luis Villeda Referring Physician: Sivan Bowie Performed By: Ioana Gu RDCS
[2025-10-05 13:02] LABS: Reflex Lactate? Y
--- NOTE | 2025-10-05 13:12 | EX.PCM.CONCC ---
Assessment & Plan Assessment/Plan (1) Acute respiratory failure with hypoxia and hypercapnia: (2) Coronary artery disease: PLAN: Plan RECOMMENDATIONS: 1. Continue assist-control mode of mechanical ventilation. Wean FiO2 and PEEP as tolerated. 2. Coronary angiography with intervention per cardiology. 3. Continue empiric antibiotics, pending sputum culture results. 4. Start scheduled Atrovent aerosols. 5. Obtain follow-up chest x-ray to confirm endotracheal tube placement. 6. Obtain follow-up ABG in the morning. 7. Propofol and fentanyl for sedation. 8. Appropriate ICU prophylaxis. IMPRESSIONS: 1. Acute hypoxemic and hypercapnic respiratory failure in the setting of V-fib cardiac arrest The patient presented to the hospital with several days of shortness of breath and chest discomfort in the setting of a known history of coronary artery disease and ultimately experienced V-fib cardiac arrest which required defibrillation x 2 with eventual ROSC. The patient was ultimately intubated as a consequence of the aforementioned and taken for coronary angiography. CTA chest ruled out pulmonary embolism, but did confirm faint ground glass airspace opacities in the posterior lung bases. Accordingly, the patient was placed on empiric antimicrobials, which will be continued. He will also be initiated on scheduled Atrovent aerosols. Assist-control mode of mechanical ventilation will be employed, with a goal to wean FiO2 and PEEP to maintain saturations at or above 90%. Propofol and fentanyl will be utilized for sedation. Will begin spontaneous awakening and breathing trials beginning tomorrow morning. 2. History of ischemic cardiomyopathy/COPD/hypertension/hyperlipidemia/diabetes mellitus/tobacco abuse history Complicates care, management, recovery and prognosis. Continue supportive measures as noted above. TIME: 34 minutes of critical care time, independent of procedures, was spent addressing the patient's acute respiratory failure, V-fib cardiac arrest, review of all data and collaboration with the care team. HPI Consult Data Date of Consult: 10/05/25 HPI Narrative Reason for Consultation: Acute respiratory failure HPI Narrative: The patient is a 55-year-old male, with a history as outlined below, who presented to the emergency department on October 05 with chest pain and shortness of breath. History pertinent to the patient's hospitalization was obtained primarily via chart review, as the patient is currently intubated and mechanically ventilated. According to the emergency department provider, the patient arrived in ct respiratory distress, with complaints of several days of chest pain. The patient was last admitted to the hospital in June 2025 with hypertensive emergency and chest pain with concern for underlying ischemic cardiomyopathy. The patient ultimately underwent cardiac catheterization with mid LAD stenosis noted for which PCI was performed. Ejection fraction was noted to be 25% at that time with stage III diastolic dysfunction. His medical history is also significant for suspected COPD, hyperlipidemia and history of DVT. Shortly after arriving to the emergency department, the patient experienced 2 episodes of ventricular fibrillation, for which ACLS was initiated. The patient was defibrillated x 2 with ultimate ROSC achieved. Shortly after return of spontaneous circulation, the patient noted that he was extremely short of breath and was subsequently intubated. He was then seen in consultation by cardiology and taken to the cardiac catheterization lab to undergo coronary angiography. Laboratory evaluation revealed an elevated white blood cell count of 16,000. Initial arterial blood gas was notable for a pH of 7.16 with a pCO2 of 80 and pO2 of 82. Chemistry profile was unremarkable with a lactate of 2.3. Troponin was increased to 41. BNP and TSH were within normal limits. Urine analysis was unremarkable. CTA chest was negative for pulmonary embolism. Patchy airspace around glass opacities were noted in the posterior lung bases, more pronounced on the right side. Sputum and blood cultures were collected. The patient was treated with ceftriaxone and azithromycin. [facility] Medical History (Updated 10/05/25 @ 15:[address] Brennon Juarez, ) Parotitis Leukocytosis Hyperglycemia due to type 2 diabetes mellitus Elevated troponin Cardiac LV ejection fraction 21-30% CVA (cerebral vascular accident) Obesity (BMI 30-39.9) History of DVT (deep vein thrombosis) Respiratory insufficiency Elevated troponin Acute bronchitis COPD exacerbation Congestive heart failure Vitamin D deficiency Acute sinusitis, unspecified Left shoulder pain Insulin dependent diabetes mellitus Coronary artery disease Essential hypertension Cluster headache Migraine Headache Diabetes Obesity Community acquired pneumonia Smoker Asthma Myocardial infarct Ischemic cardiomyopathy Obesity (BMI 30.0-34.9) Chronic obstructive pulmonary disease (COPD) Nicotine dependence COPD (chronic obstructive pulmonary disease) Hyperlipidemia History of non-ST elevation myocardial infarction (NSTEMI) (11/22/20) Atherosclerosis of [place] coronary artery of [place] heart without angina pectoris Non-ST elevation [place] (NSTEMI) (07/06/25) Home Medications ?Medication ?Instructions ?Recorded ?Last Taken ?Type aspirin 81 mg chewable tablet 81 mg PO DAILY [facility] 04/27/22 10/04/25 History loratadine 10 mg tablet 10 mg PO DAILY PRN allergies 06/26/22 Unknown History insulin degludec 200 unit/mL (3 50 unit (0.25 mL) subcut QHS blood 12/28/23 10/04/25 Rx mL) subcutaneous pen (Tresiba sugar 3 months #22.5 mL FlexTouch U-200 insulin) carvedilol 25 mg tablet 25 mg PO BIDCM heart health #180 10/27/24 10/04/25 Rx tabs clonidine HCl 0.1 mg tablet 0.1 mg PO BID blood pressure #180 12/15/24 10/04/25 Rx tabs furosemide 20 mg tablet (Lasix) 60 mg (3 x 20 mg) PO DAILY #270 01/15/25 10/04/25 Rx tabs insulin lispro 100 unit/mL 20 unit subcut TIDAC PRN DIABETES 02/10/25 10/04/25 History subcutaneous pen (Humalog KwikPen (U-100) Insulin) atorvastatin 80 mg tablet 80 mg PO QHS cholesterol #90 tabs 02/11/25 10/04/25 Rx amlodipine 10 mg tablet 10 mg PO DAILY blood pressure #90 02/12/25 10/04/25 Rx tabs clopidogrel 75 mg tablet (Plavix) 75 mg PO DAILY anti platelet #90 02/12/25 10/04/25 Rx tabs isosorbide mononitrate 60 mg 60 mg PO BID heart #180 TABLETS 02/12/25 10/04/25 Rx tablet,extended release 24 hr nitroglycerin 0.4 mg sublingual 0.4 mg sublingual Q5-15M chest 06/01/25 10/05/25 Rx tablet pain #25 tabs lisinopril 20 mg tablet 20 mg PO BID blood pressure 07/05/25 10/04/25 History Allergy/AdvReac Type Severity Reaction Status Date / Time amoxicillin trihydrate (From Allergy Rash Verified 09/22/25 12:29 Augmentin) potassium clavulanate (From Allergy Rash Verified 09/22/25 12:29 Augmentin) ticagrelor (From Brilinta) Allergy Shortness Verified 09/22/25 12:29 of breath codeine AdvReac Nausea Verified 09/22/25 12:29 Family History Sister Myocardial infarction, Onset Age: 41 Diabetes Mother COPD (chronic obstructive pulmonary disease) Asthma Rheumatoid arthritis CVA (cerebral vascular accident) Hypertension Grandmother Diabetes Surgical History (Updated 10/05/25 @ 15:08 by Mal Hughes) History of coronary artery stent placement (07/06/25) History of hernia repair (2008) History of umbilical hernia repair (1971) History of neck surgery History of appendectomy Social History household members: spouse housing: house Smoking Status: Current every day smoker tobacco type: cigarettes Tobacco: How many years used: 20 Electronic Cigarette Use: not used second hand exposure: Yes alcohol intake: current alcohol intake frequency: 0-2 drinks per day Alcohol type: beer substance use type: does not use caffeine: Yes Type: carbonated beverages Number of servings: 2 and tea Number of servings: 6 what type of physical activity do you participate in: none Physical Exam Const Constitutional Narrative: Intubated and mechanically ventilated. HEENT normocephalic and head/scalp atraumatic Mouth: endotracheal tube in place Eyes EOMs intact bilaterally and conjunctivae normal Neck supple General: trachea midline Chest inspection of chest normal Resp Auscultation: diminished lung sounds; Negative for rales, rhonchi or wheezes Cardio S1 normal heart sound and S2 normal heart sound Rate: tachycardic GI normal to inspection, nondistended, normoactive bowel sounds Extremity no clubbing, cyanosis or edema Skin no rashes or lesions noted Neuro Sensorium / Orientation: sedated on vent Psych Activity / Motor Behavior: restless Lab / Micro Data 10/05/25 08:13 10/05/25 08:13 Labs: Laboratory Results - last 24 hr 10/05/25 08:13: WBC 16.1 H, RBC 5.84, Hgb 16.9 H, Hct 51.3, MCV 87.8, MCH 28.9, MCHC 32.9, RDW Std Deviation 42.7, RDW Coeff of Narcisa 13.3, Plt Count 313, MPV 10.7, Immature Gran % (Auto) 0.300, Neut % (Auto) 49.3, Lymph % (Auto) 38.3, [place] % (Auto) 9.5, Eos % (Auto) 2.0, Baso % (Auto) 0.6, Absolute Neuts (auto) 7.9 H, Absolute Lymphs (auto) 6.18 H, Nucleated RBC % 0, Reactive Lymphocytes 3+, PT 12.8, INR 0.9, APTT 24.1, Sodium 144, Potassium 4.5, Chloride 104, Carbon Dioxide 24.0, Anion Gap 15, BUN 10, Creatinine 0.94, Estim Creat Clear Calc 103.43, Est GFR (MDRD) Non-Af 96, BUN/Creatinine Ratio 10.3, Glucose 210 H, Calcium 9.7, Magnesium 2.1, Troponin T High Sens 19, NT pro BNP II 826, TSH 4.120 10/05/25 08:54: Lactic Acid 2.3 H* 10/05/25 09:01: Urine Color Straw, Urine Clarity Clear, Urine pH 6.5, Ur Specific [place] 1.010, Urine Protein 30 H, Urine Glucose (UA) 1000 H, Urine Ketones Negative, Urine Occult Blood 10 H, Urine Nitrite Negative, Urine Bilirubin Negative, Urine Urobilinogen Normal, Ur Leukocyte Esterase Negative, Urine RBC 0 SEEN, Urine WBC 0 SEEN, Ur Squamous Epith Cells 0 SEEN, Urine Bacteria 0 SEEN, Urine Mucus 0 SEEN 10/05/25 10:07: Troponin T Hi Sens 2 Hr 41 H ABG Data ABG results: ABG 10/05/25 10/05/25 09:19 10:42 Specimen Type ART ART Sample Site R Radial R Radial pH 7.16 L* 7.25 L Bicarbonate Actual 28.6 H 28.7 H Total CO2 31 31 Base Excess 0 1 O2 Saturation 91 L 94 O2 % 75.0 65.0 ABG pCO2 80.4 H* 65.9 H ABG pO2 82 83 [place] Test Positive Positive Respiration Rate 14 16 O2 Delivery Device Adult Vent Adult Vent Vent Mode AC AC Tidal Volume 450.0 500.0 POC PEEP 8 8 Crit Call To/Read Back Yes Blood Gas Notified Whom laxmi Blood Gas Notified Time 09:21:26 Imaging Radiology Impression Chest X-Ray 10/05/25 08:10 IMPRESSION: There is cardiomegaly with mild central vascular congestion and increased interstitial markings consistent with CHF. [facility] Chest [facility]A 10/05/25 08:11 IMPRESSION: No evidence of pulmonary embolism. Coronary artery calcification. An enteric tube is seen within the stomach. Endotracheal tube within the trachea. Patchy infiltrates as described. Findings suggestive of mild degree of CHF. Reading Location: [id number] Chest X-Ray 10/05/25 08:43 IMPRESSION: As above. Reading Location: [facility] Chest X-Ray 10/05/25 08:43 IMPRESSION: There is an ET tube in position with its tip 9 cm above the level of the marilee. There is an enteric tube seen with its tip in the stomach. There is cardiomegaly with prominent central vascular markings and increased interstitial markings consistent with CHF. Reading Location: [facility] Brain CT 10/05/25 08:50 IMPRESSION: No acute intracranial CT abnormality. Reading Location: [id number] Charges/Coding Procedures Hospitalists Procedures: 30287 Critical Care 1st Hr
--- NOTE | 2025-10-05 13:25 | RAD_ITS ---
PROCEDURE: CHEST 1 VIEW (PORTABLE) 10/05/2025 REASON FOR EXAM: Respiratory failure TECHNIQUE: 2 AP portable views of the chest. COMPARISON: None FINDINGS: Hardware: ETT is 6 cm above the marilee. NG tube tip in the body of the stomach. EKG leads overlie the chest Heart: The heart size is normal. Lungs: The lungs are clear. Bones: The bones are unremarkable. RAD/Chest 1 View (Portable) IMPRESSION: ETT tip is 6 cm above the marilee. NG tube tip in the body of the stomach No acute pulmonary process Reading Location: [id number]
[2025-10-05 13:54] LABS: Base Excess 7 mmol/L (-2 to +2); PO2 87 mmHG (75-100); SITE Not entered; SO2 97 % (94-98)
[2025-10-05] MEDS: fentaNYL drip 100 ML 5 MCG CONT INF (14:17)
--- NOTE | 2025-10-05 14:26 | CL.I_ITS ---
Patient Name: LATONYA ELDER Study Date: 10/05/2025 Performing: Luis Villeda MD Ht: 68 inches 172.72 cm : 1970 Wt: 222.7 lbs 100.9 kg Age: 55 Gender: male BSA: 2.14 PROCEDURE(S) PERFORMED IC12-(73127/C9600)WAN W/WO PTCA, SINGLE CORONARY ARTERY DC02-([id number])LHC/COR IC02-(41248)PTCA, EACH ADD'L CORONARY ART, SAME MAJOR CLINICAL PROFILE AND CO-MORBIDITIES Indications: Cardiac Arrythmia, VF Heart Failure: None CAD Presentations: Unstable angina. CONCLUSIONS 80% calcified distal LCX, Stent to Prox OM1 patent, distal OM1 100% Stent to Mid RCA, RPLV patent; Mid RPLV 50-60% LAD 50% Prox, 80% ISR Mid LAD; 1099% Prox D1 with thrombus Successful PTCA/WAN Prox D1 using [place] 2.5x30 mm Successful PTCA mid LAD ISR using 2.5 mm balloon RECOMMENDATIONS ASA Indefinitley P2Y12 inhibitors for atleast 12 months DESCRIPTION OF PROCEDURE The patient arrived to the procedure lab. The risks and benefits of the procedure as well as a full description of our services here and lack of surgical backup were fully explained to the patient and/or their significant other prior to the catheterization. The Timeout was completed, verifying the correct patient and procedure. The patient's procedural site was prepped and draped in the usual fashion. Local anesthetic was given subcutaneously to right radial region with Lidocaine 2%. Using a modified Seldinger technique, arterial access was obtained via the right femoral artery, a 6Fr sheath was inserted.. Left Coronary Artery selective angiography was performed in multiple views using a 5 Fr. 4.0 [place] catheter. Right Coronary Artery selective angiography was then performed in multiple views using a 5 Fr. 4.0 [place] catheterThe images were reviewed and options discussed. A decision was then made to proceed with an Intervention, IVUS or other adjunct procedure. XB3 Guide catheter was inserted and engaged into the LCA. {L1} RUNTHROUGH Guide wire was advanced to the 1ST DIAGONAL. EMERGE 2.5 X 20 Balloon catheter was inserted. XB3 Guide catheter was inserted and engaged into the LCA. PTCA balloon inflated at 6 atms for 20 secs. PTCA balloon inflated at 8 atms for 14 secs. Angiogram performed post balloon dilatation. PTCA balloon inflated at 6 atms for 15 secs. JUAN C FRONTIER 2.5 X 30 Drug Eluting stent was inserted. Drug Eluting stent was advanced across the lesion in the first diagonal, proximal. Angiogram performed pre stent deployment. NC EMERGE 2.5 X 20 Balloon catheter was inserted. Angiogram performed pre balloon dilatation. NC EMERGE 2.5 X 12 Balloon catheter was inserted. Balloon catheter was inserted post stent. Angiogram performed post balloon dilatation. JUAN C FRONTIER 2.25 X 18 Drug Eluting stent was inserted. Drug Eluting stent was advanced across the lesion in the first diagonal, distal. Angiogram performed pre stent deployment. Drug Eluting stent was removed intact, failed to cross lesion JUAN C FRONTIER 2.25 X 12 Drug Eluting stent was inserted. Drug Eluting stent was advanced across the lesion in the first diagonal, distal. Drug Eluting stent was removed intact, failed to cross lesion RUNTHROUGH Guide wire was inserted as a cornelius wire ONXY FRONTIER 2.25 X 12 Drug Eluting stent was reinserted Drug Eluting stent was advanced across the lesion in the first diagonal, distal. Angiogram performed post stent deployment. JUAN C FRONTIER 2.25 X 15 Drug Eluting stent was inserted. Drug Eluting stent was advanced across the lesion in the first diagonal, distal. Angiogram performed pre stent deployment. NC EMERGE 2.5 X 20 Balloon catheter was inserted post stent. Angiogram performed pre balloon dilatation. Angiogram performed post balloon dilatation. Guide wire was repositioned to the LAD NC EMERGE 2.5 X 12 Balloon catheter was inserted. Balloon catheter was advanced across lesion in the LAD, mid. PTCA balloon inflated at 20 atms for 28 secs. PTCA balloon inflated at 12 atms for 12 secs. PTCA balloon inflated at 12 atms for 10 secs. PTCA balloon inflated at 20 atms for 18 secs. EMERGE NC 2.5 X 20 Balloon catheter was inserted. Balloon catheter was advanced across lesion in the LAD, mid. PTCA balloon inflated at 20 atms for 15 secs. PTCA balloon inflated at 20 atms for 30 secs. Angiogram performed post balloon dilatation. The arterial sheath was pulled and a TR Band was applied for hemostasis 12 ml of air CORONARY ANGIOGRAPHY LEFT MAIN: Short LMCA LEFT ANTERIOR DESCENDING ARTERY: 50% Prox, 80% ISR Mid LAD; 1099% Prox D1 with thrombus LAD: Eccentric 50% Proximal lesion in LAD OM 1: Tubular 100% Distal lesion in MARG1 OM 2: Tubular 100% Distal lesion in MARG1 INTERVENTION INFORMATION LESION SITE: 1st Diagonal (Proximal) Lesion Complexity: High/C, thrombus present: Yes, culprit lesion: Yes, lesion length: 28 mm Pre Stenosis: 99 % Pre intervention ESTEPHANIA flow: 1 PROCEDURE: Drug Eluting Stent with pre and post dilatation Post Stenosis: 0 % Post intervention ESTEPHANIA flow: 3 Lesion Devices: Cordis 6 Fr XB3.0 100cm Guide Catheter Terumo .014 180cm Runthrough Extra Floppy straight Reji Sci EMERGE MR 2.50x20 BALLOON Medtronic 2.50 x 30 JUAN C FRONTIER WAN Reji Sci NC EMERGE MR 2.50x20 BALLOON Reji Sci NC EMERGE MR 2.50x12 BALLOON LESION SITE: 1st Diagonal (Distal) Lesion Complexity: High/C, lesion length: 25 mm Pre Stenosis: 90 % Pre intervention ESTEPHANIA flow: 3 Post Stenosis: 0 % Post intervention ESTEPHANIA flow: 3 Lesion Devices: Cordis 6 Fr XB3.0 100cm Guide Catheter Terumo .014 180cm Runthrough Extra Floppy straight Reji Sci EMERGE MR 2.50x20 BALLOON Medtronic 2.25 x 12 JUAN C FRONTIER WAN Terumo .014 180cm Runthrough Extra Floppy straight Medtronic 2.25 x 15 JUAN C FRONTIER WAN LESION SITE: LAD (Mid) Lesion Complexity: Non-High/Non-C, lesion length: 12 mm Pre Stenosis: 70 % Pre intervention ESTEPHANIA flow: 3 PROCEDURE: Balloon Angioplasty 0 % Post intervention ESTEPHANIA flow: 3 Lesion Devices: Cordis 6 Fr XB3.0 100cm Guide Catheter Terumo .014 180cm Runthrough Extra Floppy straight Reji Sci NC EMERGE MR 2.50x20 BALLOON Reji Sci NC EMERGE MR 2.50x12 BALLOON COMPLICATIONS No Complications PROCEDURE MEDICATIONS Oxygen: 15 L/min via ventilator. See Resp Record for Settings Amiodarone 500mg / 100ml D5W 1 mg/min maintained 10/05/2025 12:10:15 Brilinta 180 mg PO @ 10/05/2025 12:40:50 Heparin given IA 10/05/2025 12:20:23 Heparin 7000 unit(s) IV 10/05/2025 12:31:19 Heparin 2000 unit(s) IV 10/05/2025 12:46:14 Heparin 2000 unit(s) IV 10/05/2025 13:25:32 Heparin 5000 unit(s) IV 10/05/2025 13:48:15 Nitro glycerin 25mg / 250ml D5W @ 50 mcg/min (decreased rate) 10/05/2025 12:08:52 Nitro glycerin 25mg / 250ml D5W @ discontinued 10/05/2025 12:34:36 Nitro 50 mcg IC 10/05/2025 13:12:59 IV Bolus: 50 mg propofol IV 10/05/2025 12:24:42 IV Bolus: 40 MG OF PROPOFOL IV 10/05/2025 12:54:32 IV Bolus: 40 mcg IV PROPOFOL 10/05/2025 13:26:47 IV Bolus: 40 mg IV propofol 10/05/2025 13:46:33 IV Fluids: .9 NaCl IV started @ 50 ml/hr 10/05/2025 12:20:16 SUMMARY OF HEMODYNAMIC DATA Time AIR REST ECG 12:04:57 AO 133/111 (120) SA 12:24:23 AO 86/65 (74) 12:34:03 AO 104/80 (90) 12:50:29 Signed By Luis Villeda MD On 10/05/2025 14:25:15 Luis Villeda MD
[2025-10-05] MEDS: Ipratropium 0.5 MG/2.5 ML SOLUTION INHALATION ×2 (14:41→19:35)
[2025-10-05] MEDS: 0.9% Normal Saline (250mL Bag) 250 ML 15 ML IV (14:44)
[2025-10-05] MEDS: Azithromycin 500 MG in 0.9% Normal Saline (250mL Bag) 250 ML 250 MG IV (14:44)
[2025-10-05 14:46] LABS: ACT Activated Clotting Time 184 sec (74-137)
--- NOTE | 2025-10-05 14:55 | HP.PCM.HOS_ITS ---
HPI - General General Date of Admission: 10/05/25 Date of Service: 10/05/25 Chief Complaint: Chest pain HPI Narrative LATONYA ELDER, is a 55 M who presents with chest pain and shortness of breath. Patient awoke this way and took 3 nitroglycerin. He presented to the emergency room he was hypertensive into the 200s. He was also started on nitroglycerin drip. While he was in the emergency room, he went into ventricular fibrillation twice and was shocked out of it twice. He was subsequently intubated in the emergency room with the second arrest. Cardiology was consulted and patient was taken to the heart [employer]. Patient had circumflex lesion and required 3 stents. He was previously loaded with ticagrelor. Patient is intubated and sedated so history obtained primarily through the emergency room physician and the specialists. [ ] [facility] Medical History Diabetes Nicotine dependence Parotitis Leukocytosis Hyperglycemia due to type 2 diabetes mellitus Elevated troponin Cardiac LV ejection fraction 21-30% Non-ST elevation ID (NSTEMI) (07/06/25) CVA (cerebral vascular accident) Obesity (BMI 30-39.9) History of DVT (deep vein thrombosis) Respiratory insufficiency Elevated troponin Acute bronchitis COPD exacerbation Congestive heart failure Vitamin D deficiency Acute sinusitis, unspecified Left shoulder pain Insulin dependent diabetes mellitus Coronary artery disease Essential hypertension Cluster headache Migraine Headache Obesity Community acquired pneumonia Smoker Asthma Myocardial infarct Ischemic cardiomyopathy Obesity (BMI 30.0-34.9) Chronic obstructive pulmonary disease (COPD) COPD (chronic obstructive pulmonary disease) Hyperlipidemia History of non-ST elevation myocardial infarction (NSTEMI) (11/22/20) Atherosclerosis of [place] coronary artery of [place] heart without angina pectoris Home Medications ?Medication ?Instructions ?Recorded ?Last Taken ?Type aspirin 81 mg chewable tablet 81 mg PO DAILY heart hea lth 04/27/22 10/04/25 History loratadine 10 mg tablet 10 mg PO DAILY PRN allergies 06/26/22 Unknown History insulin degludec 200 unit/mL (3 50 unit (0.25 mL) subc ut QHS blood 12/28/23 10/04/25 Rx mL) subcutaneous pen (Tresiba sugar 3 months #22.5 mL FlexTouch U-200 insulin) [facility]/27/24 10/04/25 Rx tabs clonidine HCl 0.1 mg tablet 0.1 mg PO BID blood pressu re #180 12/15/24 10/04/25 Rx tabs furosemide 20 mg tablet (Lasix) 60 mg (3 x 20 mg) PO D AILY #270 01/15/25 10/04/25 Rx tabs insulin lispro 100 unit/mL 20 unit subcut TIDAC PRN DI ABETES 02/10/25 10/04/25 History subcutaneous pen (Humalog KwikPen (U-100) Insulin) atorvastatin 80 mg tablet 80 mg PO QHS cholesterol #90 tabs 02/11/25 10/04/25 Rx amlodipine 10 mg tablet 10 mg PO DAILY blood pressur e #90 02/12/25 10/04/25 Rx tabs clopidogrel 75 mg tablet (Plavix) 75 mg PO DAILY anti platelet #90 02/12/25 10/04/25 Rx tabs isosorbide mononitrate 60 mg 60 mg PO BID heart #180 T ABLETS 02/12/25 10/04/25 Rx tablet,extended release 24 hr nitroglycerin 0.4 mg sublingual 0.4 mg sublingual Q5-1 5M chest 06/01/25 10/05/25 Rx tablet pain #25 tabs lisinopril 20 mg tablet 20 mg PO BID blood pressure 07/05/25 10/04/25 History Allergy/AdvReac Type Severity Reaction Status Date / Time amoxicillin trihydrate (From Allergy Rash Verified 09/22/25 12:29 Augmentin) potassium clavulanate (From Allergy Rash Verified 09/22/25 12:29 Augmentin) ticagrelor (From Brilinta) Allergy Shortness Verified 09/22/25 12:29 of breath codeine AdvReac Nausea Verified 09/22/25 12:29 Family History Sister Myocardial infarction, Onset Age: 41 Diabetes Mother COPD (chronic obstructive pulmonary disease) Asthma Rheumatoid arthritis CVA (cerebral vascular accident) Hypertension Grandmother Diabetes Surgical History History of coronary artery stent placement (07/06/25) History of hernia repair (2008) History of umbilical hernia repair (1971) History of neck surgery History of appendectomy Social History household members: spouse housing: house Smoking Status: Current every day smoker tobacco type: cigarettes Tobacco: How many years used: 20 Electronic Cigarette Use: not used second hand exposure: Yes alcohol intake: current alcohol intake frequency: 0-2 drinks per day Alcohol type: beer substance use type: does not use caffeine: Yes Type: carbonated beverages Number of servings: 2 and tea Number of servings: 6 what type of physical activity do you participate in: none ROS ROS Narrative Unable to obtain as the patient is intubated and sedated Vital Signs Vital Signs Vital Signs: 10/05/25 07:59 10/05/25 07:59 10/05/25 08:10 Temperature 36.6 C Temperature Source Oral Pulse Rate 137 H 118 H Respiratory Rate 18 Respiratory Effort Respiratory Pattern Blood Pressure 222/148 H 222/148 H Blood Pressure [1] 222/148 H Blood Pressure Mean 172 172 Pulse Ox 99 Oxygen Delivery Method Nasal Cannula Nasal Cannula Oxygen Flow Rate (L/min) 2 6 Fraction of Inspired Oxygen (FIO2) 10/05/25 08:10 10/05/25 08:10 10/05/25 08:15 Temperature Temperature Source Pulse Rate 119 H Respiratory Rate 38 H Respiratory Effort Labored Respiratory Pattern Blood Pressure 236/169 H Blood Pressure [1] Blood Pressure Mean 191 Pulse Ox 6 Oxygen Delivery Method Nasal Cannula Nasal Cannula Oxygen Flow Rate (L/min) 6 Fraction of Inspired Oxygen (FIO2) 10/05/25 08:30 10/05/25 08:36 10/05/25 08:36 Temperature Temperature Source Pulse Rate 129 H 129 H Respiratory Rate 33 H 14 Respiratory Effort Mechanically Ventilated Respiratory Pattern Normal Blood Pressure 248/186 H Blood Pressure [1] Blood Pressure Mean 206 Pulse Ox 93 100 Oxygen Delivery Method Nasal Cannula Oxygen Flow Rate (L/min) 6 Fraction of Inspired Oxygen (FIO2) 10/05/25 08:36 10/05/25 08:38 10/05/25 08:45 Temperature Temperature Source Pulse Rate 123 H 122 H Respiratory Rate 17 Respiratory Effort Respiratory Pattern Blood Pressure 178/130 H 237/162 H 222/137 H Blood Pressure [1] Blood Pressure Mean 146 165 Pulse Ox 100 Oxygen Delivery Method Mechanical Ventilator Mechanical Ventilator Oxygen Flow Rate (L/min) Fraction of Inspired Oxygen (FIO2) 10/05/25 09:09 10/05/25 09:13 10/05/25 09:15 Temperature Temperature Source Pulse Rate 118 H 118 H Respiratory Rate 26 H 19 H Respiratory Effort Respiratory Pattern Blood Pressure 222/137 H 239/153 H 221/137 H Blood Pressure [1] Blood Pressure Mean 181 165 Pulse Ox 97 Oxygen Delivery Method Mechanical Ventilator Oxygen Flow Rate (L/min) Fraction of Inspired Oxygen (FIO2) 10/05/25 09:17 10/05/25 09:25 10/05/25 09:35 Temperature Temperature Source Pulse Rate 118 H 119 H Respiratory Rate 13 11 L Respiratory Effort Respiratory Pattern Blood Pressure 221/137 H 201/127 H 189/114 H Blood Pressure [1] Blood Pressure Mean 165 151 139 Pulse Ox 96 100 Oxygen Delivery Method Mechanical Ventilator Mechanical Ventilator Oxygen Flow Rate (L/min) Fraction of Inspired Oxygen (FIO2) 10/05/25 09:45 10/05/25 09:48 10/05/25 09:50 Temperature Temperature Source Pulse Rate 117 H 113 H Respiratory Rate 16 16 Respiratory Effort Respiratory Pattern Blood Pressure 198/122 H 198/120 H 198/121 H Blood Pressure [1] Blood Pressure Mean 147 146 146 Pulse Ox 99 Oxygen Delivery Method Mechanical Ventilator Mechanical Ventilator Oxygen Flow Rate (L/min) Fraction of Inspired Oxygen (FIO2) 10/05/25 09:54 10/05/25 10:00 10/05/25 10:07 Temperature Temperature Source Pulse Rate 112 H 110 H 112 H Respiratory Rate 16 16 16 Respiratory Effort Respiratory Pattern Blood Pressure 198/121 H 189/119 H 182/112 H Blood Pressure [1] Blood Pressure Mean 146 142 135 Pulse Ox 98 97 96 Oxygen Delivery Method Mechanical Ventilator Mechanical Ventilator Mechanical Ventilator Oxygen Flow Rate (L/min) Fraction of Inspired Oxygen (FIO2) 10/05/25 10:13 10/05/25 10:19 10/05/25 10:24 Temperature 36.1 C L 36.0 C L 36.0 C L Temperature Source Core Core Core Pulse Rate 10 L 109 H 108 H Respiratory Rate 16 15 18 Respiratory Effort Respiratory Pattern Blood Pressure 179/108 H 180/112 H 176/113 H Blood Pressure [1] Blood Pressure Mean 131 134 134 Pulse Ox Oxygen Delivery Method Mechanical Ventilator Mechanical Ventilator Mechanical Ventilator Oxygen Flow Rate (L/min) Fraction of Inspired Oxygen (FIO2) 75 10/05/25 10:29 10/05/25 10:30 10/05/25 10:40 Temperature 35.9 C L 35.9 C L Temperature Source Core Core Pulse Rate 108 H 109 H Respiratory Rate 22 H 19 H 24 H Respiratory Effort Respiratory Pattern Blood Pressure 174/110 H 167/111 H Blood Pressure [1] Blood Pressure Mean 131 129 Pulse Ox 97 Oxygen Delivery Method Mechanical Ventilator Mechanical Ventilator Oxygen Flow Rate (L/min) Fraction of Inspired Oxygen (FIO2) 75 10/05/25 10:44 10/05/25 11:00 10/05/25 11:30 Temperature 36.1 C L 36.1 C L Temperature Source Core Core Pulse Rate 107 H 96 Respiratory Rate 22 H Respiratory Effort Respiratory Pattern Blood Pressure 151/99 H 149/67 H 121/72 H Blood Pressure [1] Blood Pressure Mean 116 94 88 Pulse Ox Oxygen Delivery Method Mechanical Ventilator Mechanical Ventilator Oxygen Flow Rate (L/min) Fraction of Inspired Oxygen (FIO2) 10/05/25 11:35 10/05/25 12:10 10/05/25 14:19 Temperature 36.1 C L Temperature Source Pulse Rate 96 106 H 74 Respiratory Rate 22 H 18 Respiratory Effort Respiratory Pattern Normal Blood Pressure 134/88 H 142/89 H Blood Pressure [1] Blood Pressure Mean 103 106 Pulse Ox 95 96 100 Oxygen Delivery Method Mechanical Ventilator Oxygen Flow Rate (L/min) Fraction of Inspired Oxygen (FIO2) 10/05/25 14:41 10/05/25 14:46 Temperature 36.8 C Temperature Source Core Pulse Rate 72 79 Respiratory Rate 18 16 Respiratory Effort Respiratory Pattern Normal Blood Pressure 90/64 Blood Pressure [1] Blood Pressure Mean 72 Pulse Ox 95 Oxygen Delivery Method Mechanical Ventilator Oxygen Flow Rate (L/min) Fraction of Inspired Oxygen (FIO2) 45 Weight Weight: 100.9 kg Body Mass Index (BMI) 34.5 Physical Exam Const Constitutional Narrative: Intubated and sedated. HEENT HEENT Narrative: ET tube and OG tube in place Resp Resp Narrative: On ventilator. Coarse respiratory sounds. Cardio regular rate, regular rhythm, S1 normal heart sound and S2 normal heart sound GI normal to inspection, nondistended, normoactive bowel sounds, soft to palpation, non-tender and non-distended Extremity normal to inspection and full ROM Neuro Neuro Narrative: No clonus. Withdraws to noxious stimuli. Results Lab / Micro Data Attestation: I reviewed the patient's lab results. 10/05/25 08:13 10/05/25 08:13 Labs: Laboratory Results - last 24 hr 10/05/25 08:13: WBC 16.1 H, RBC 5.84, Hgb 16.9 H, Hct 51.3, MCV 87.8, MCH 28.9, MCHC 32.9, RDW Std Deviation 42.7, RDW Coeff of [place] 13.3, Plt Count 313, MPV 10.7, Immature Gran % (Auto) 0.300, Neut % (Auto) 49.3, Lymph % (Auto) 38.3, [place] % (Auto) 9.5, Eos % (Auto) 2.0, Baso % (Auto) 0.6, Absolute Neuts (auto) 7.9 H, Absolute Lymphs (auto) 6.18 H, Nucleated RBC % 0, Reactive Lymphocytes 3+, PT 12.8, INR 0.9, APTT 24.1, Sodium 144, Potassium 4.5, Chloride 104, Carbon Dioxide 24.0, Anion Gap 15, BUN 10, Creatinine 0.94, Estim Creat Clear Calc 103.43, Est GFR (MDRD) Non-Af 96, BUN/Creatinine Ratio 10.3, Glucose 210 H, Calcium 9.7, Magnesium 2.1, Troponin T High Sens 19, NT pro BNP II 826, TSH 4.120 10/05/25 08:54: Lactic Acid 2.3 H* 10/05/25 09:01: Urine Color Straw, Urine Clarity Clear, Urine pH 6.5, Ur Specific [place] 1.010, Urine Protein 30 H, Urine Glucose (UA) 1000 H, Urine Ketones Negative, Urine Occult Blood 10 H, Urine Nitrite Negative, Urine Bilirubin Negative, Urine Urobilinogen Normal, Ur Leukocyte Esterase Negative, Urine RBC 0 SEEN, Urine WBC 0 SEEN, Ur Squamous Epith Cells 0 SEEN, Urine Bacteria 0 SEEN, Urine Mucus 0 SEEN 10/05/25 10:07: Troponin T Hi Sens 2 Hr 41 H 10/05/25 13:43: Lactic Acid 1.1 10/05/25 14:43: Activated Clotting Time 184 H ABG Data ABG results: ABG 10/05/25 10/05/25 10/05/25 09:19 10:42 15:47 Specimen Type ART ART ART Sample Site R Radial R Radial Not entered pH 7.16 L* 7.25 L 7.42 Bicarbonate Actual 28.6 H 28.7 H 31.6 H Total CO2 31 31 33 Base Excess 0 1 7 H O2 Saturation 91 L 94 97 O2 % 75.0 65.0 ABG pCO2 80.4 H* 65.9 H 48.5 H ABG pO2 82 83 87 [place] Test Positive Positive Respiration Rate 14 16 O2 Delivery Device Adult Vent Adult Vent Not entered Vent Mode AC AC Not entered Tidal Volume 450.0 500.0 POC PEEP 8 8 Crit Call To/Read Back Yes Blood Gas Notified Whom [place] Blood Gas Notified Time 09:21:26 Imaging Radiology Impression Chest X-Ray 10/05/25 08:10 IMPRESSION: There is cardiomegaly with mild central vascular congestion and increased interstitial markings consistent with CHF. Reading Location: [facility] Chest CTA 10/05/25 08:11 IMPRESSION: No evidence of pulmonary embolism. Coronary artery calcification. An enteric tube is seen within the stomach. Endotracheal tube within the trachea. Patchy infiltrates as described. Findings suggestive of mild degree of CHF. Reading Location: [id number] Chest X-Ray 10/05/25 08:43 IMPRESSION: As above. Reading Location: [facility] Chest X-Ray 10/05/25 08:43 IMPRESSION: There is an ET tube in position with its tip 9 cm above the level of the marilee. There is an enteric tube seen with its tip in the stomach. There is cardiomegaly with prominent central vascular markings and increased interstitial markings consistent with CHF. Reading Location: [facility] Brain CT 10/05/25 08:50 IMPRESSION: No acute intracranial CT abnormality. Reading Location: [facility] Echocardiogram 10/05/25 11:33 Interpretation Summary The left ventricular ejection fraction is 35 %. Moderate assymetric septal hypertrophy. Moderately severe segmental systolic dysfunction (see wall motion). Mild (1+) mitral valve insufficiency. Mild (1+) tricuspid valve insufficiency. Ordering Physician: Luis Villeda Referring Physician: Sivan Bowie Performed By: Ioana Gu RDCS Assessment & Plan Assessment/Plan (1) Acute hypercapnic respiratory failure: PLAN: Admission PaCO2 of 65.9. Patient to events of cardiac arrest and patient intubated per the emergency room physician due to the cardiac arrest. Currently on a ventilator. Critical care medicine contacted and actively involved in his care. CT of the chest concerning for ground glass opacities. Pneumonia or pulmonary vascular congestion noted. On empiric antibiotics with cefepime and vancomycin. Discussed with Dr. Ly (2) NSTEMI, initial episode of care: PLAN: Patient has a diagonal lesion. Discussed with Dr. Villeda, this was not a STEMI On aspirin, clopidogrel. Continue with carvedilol, will MIO inhibitor as blood pressure allows. (3) Cardiac arrest with ventricular fibrillation: PLAN: Likely secondary to the non-STEMI with the diagonal lesion. Patient was on amiodarone drip shortly after the ROSC Amiodarone drip has since been discontinued. Continue monitoring on telemetry. (4) Lactic acidosis: PLAN: Secondary to above and currently resolved. No additional workup at this time. PLAN: Plan HFrEF: CT findings more consistent with pulm vascular congestion with pleural effusions within the fissures. Ideally like to aggressively diurese him but his pressure may prohibit that at this time particular with him being on propofol. Hypertensive urgency: Present on arrival. Patient was on nitroglycerin drip to help with that blood pressure has since improved bigger since he has had propofol. Continue with antihypertensives but hold parameters for systolic less than 100. Diabetes mellitus type 2: Hold off on his basal and scheduled prandial for now. Sliding scale insulin. Check an A1c. VTE prophylaxis with enoxaparin Charges/Coding Visit Charges Inpatient E&M: 10476 Init Hosp L3
[2025-10-05] MEDS: Amiodarone 360 MG in Dextrose 5% Viaflo Bag 192.8 ML 16.7 MG CONT INF (15:24)
[2025-10-05 15:28] LABS: Triglycerides 119 mg/dL
[2025-10-05 15:29] LABS: CPK Total, Creatine Kinase 772 U/L (24-195)
[2025-10-05] MEDS: Pantoprazole Sodium 40 MG in 0.9% Normal Saline (100mL MB+) 100 ML 300 MG IV (16:00)
[2025-10-05] MEDS: Propofol 10MG/Ml 1,000 MG/100 ML Bottle 27.2 MG CONT INF (16:05)
[2025-10-05] MEDS: Cefepime HCl 1 GM in 0.9% Normal Saline (50mL MB+) 50 ML IV ×2 (16:08→21:35)
[2025-10-05] MEDS: 0.9% Normal Saline (1000mL) 1,000 ML 75 ML IV (16:15)
[2025-10-05] MEDS: Vancomycin HCl 2,000 MG in 0.9% Normal Saline (500mL Bag) 500 ML 250 MG IV (16:30)
[2025-10-05 16:33] LABS: Troponin T High Sens 4 HR 888 ng/L (<=22)
--- NOTE | 2025-10-05 16:51 | PCM.RX.CS ---
Consult Antibiotic Management Pharmacy has been consulted to manage selected antibiotic: Vancomycin Type of Intervention Type of Consult: New start Suspected Infection Suspected Infection: Sepsis and Pneumonia Prior Doses of Antibiotics Prior Doses of Antibiotics Received/Current Regimen: Vancomycin 2000 mg IV x 1 given 10/05/25 @ 1630 Labs Labs: Sodium 144 mmol/L (133-145) 10/05/25 08:13 Potassium 4.5 mmol/L (3.3-5.1) 10/05/25 08:13 Chloride 104 mmol/L (98-108) 10/05/25 08:13 Carbon Dioxide 24.0 mmol/L (21.0-32.0) 10/05/25 08:13 Anion Gap 15 (5-15) 10/05/25 08:13 BUN 10 mg/dL (4-19) 10/05/25 08:13 Creatinine 0.94 mg/dL (0.70-1.20) 10/05/25 08:13 Est GFR (MDRD) Non-Af 96 (>60) 10/05/25 08:13 BUN/Creatinine Ratio 10.3 RATIO (10-20) 10/05/25 08:13 Glucose 210 mg/dL (70-99) H 10/05/25 08:13 Microbiology Microbiology: Microbiology 10/05/25 08:50 Sputum, Induced/[place] Gram Stain - Final Dosing Weight Weight used for dosin kg Estimated Creatinine Clearance Estimated Creatinine Clearance: ~ 103 Goal Trough Goal Trough: 15-20 mcg/mL Pharmacy Plan for Drug Dosing Pharmacy Plan for Drug Dosing: Vancomycin 2000 mg IV x 1 followed by 1250 mg Q8H Pharmacy Service will continue to monitor and adjust dosing as required. Follow-Up Labs Follow-Up Labs: Trough: Vancomycin Date/Time Labs Ordered Labs to be done on [date and time ordered]: 10/06/25 @ 1600
--- OUTSIDE RECORDS SUMMARY | 2025-10-05 18:14 | XMS RPT_ITS | CCD ---
Author Organization [facility]ini[facility] Care Team Providers Care Housing Assistant Name Role Phone MD Flores Cyril S Unavailable Jesika REVENUE AUDIT CLERK, Hesham Sharma Unavailable Valeriano Weir Unavailable Unavailable MD Flores Cyril S Unavailable Valeriano Weir Unavailable Unavailable VETO Liang, Crista Duran Unavailable Unavailabl e Dr. Beka Bowie Primary Care Provider [phone] Dr. Beka Bowie Referring Provider [phone] Shimon REVENUE AUDIT CLERK, REVENUE AUDIT CLERK-C Mare Attending Provider Shimon VICTOR, REVENUE AUDIT CLERK-C Mare Referring Provider Shimon VICTOR, REVENUE AUDIT CLERK-C Mare Other Provider [phone] Dr. Eric Flores Attending Provider [phone] Beka Bowie Attending Provider [phone] Dr. Fran Yang Attending Provider Dr. González Bnun Emergency Provider [phone] Brennon Juarez [...] Provider Dr. Eric Flores Other Provider Roof REVENUE AUDIT CLERK, REVENUE AUDIT CLERK-Yung Sharma Attending Provider MD Pollo Bond [...] 00 Dr. Eric Flores Other Provider Jesika REVENUE AUDIT CLERK, REVENUE AUDIT CLERK-Yung Sharma Attending Provider MD Pollo Bond [...] Unavailable Dr. Zeynep Daly DO Other Provider [phone] Laurel EVANGELISTA, Dr. Betancourt Other Provider Say [...] Provider Nic EVANGELISTA, Dr. Smith Other Provider Gene EVANGELISTA, Dr. Ramos Other Provider Darwin EVANGELISTA, Dr. Kevin Other Provider Jerad EVANGELISTA, Dr. Ann Other Provider Unavailable Raciel EVANGELISTA, Grant Other Provider Unavailable Deras DO, Dr. Medrano Other Provider Unavail able Dr. Brennon Juarez DO Attending Provider Dr. Brennon Juarez DO Other Provider Dr. Eric Flores MD Attending Provider Dr. Beka Bowie MD Primary Care Provider Dr. Brennon Mckeon DO Emergency Provider Deras DO, Dr. Medrano Admit Provider Unavail able Deras DO, Dr. Medrano Attending Provider Unav ailable Deras DO, Dr. Medrano Other Provider Unavail able Shannon EVANGELISTA, Dr. Sheyla Grimes Attending Provider Dr. Eric Flores MD Other Provider Shannon EVANGELISTA, Dr. Sheyla Grimes Other Provider Dr. Hilda Garrison MD Attending Provider Unavailab le Dr. Eric Flores MD Attending Provider Beka Bowie Primary Care Unavailable Eric Flores Attending Unavailable Jamir, Eftwylaongbe Primary Care Unavailable Mitchell Deras Attending Unavailable Mitchell Deras Admitting Unavailable Mitchell Deras Consulting Unavailable Mitchell Deras Consulting Unavailable Mitchell Deras Admitting Unavailable Koram, Sheyla Sydney Attending [facility]available [facility]available Eric Flores Consulting Unavailable Shannon, Sheyla Sydney Consulting Unavailable Mitchell Deras Attending [facility]available [facility]available Mitchell Deras Attending Unavailable Mitchell Deras Admitting Unavailable [place] ParkFederico alvarado Consulting Unavailable Adeli, Amir Consulting Unavailable Hinduja, Ayla Consulting Unavailable Addy, Zeynep Consulting Unavailable Zha, Saia Consulting Unavailable Say, Eduardo Consulting Unavailable Augustine, Aleah Consulting Unavailable Bittar, Ricardo Consulting Unavailable Rosario Covarrubias Consulting Unavailable Anil Lema Consulting Unavailable Farzana Barth Consulting Unavailable Mal Bishop Consulting Unavailable Randy, Cele Consulting Unavailable Ridha, Mohamed Consulting Unavailable Zasukhih, Mhd Cameron Consulting UnavailLuis Hickey Consulting Unavailable Mills, Rami Consulting Unavailable Darwin, Herberth Consulting Unavailable Jerad, Marissa Consulting Unavailable Raciel, Yousef Consulting Unavailable Mitchell Deras Consulting Unavailable Brennon Juarez Attending Unavailable Brennon Juarez Consulting Unavailable [facility] Unavailable Bren[facility] Mckeon Attending [facility]available [facility] Unavailable Mitchell Deras Admitting Unavailable Federico Ramirez Consulting Unavailable Brennon Juarez Attending Unavailable Adeli, Amir Consulting Unavailable Hinduja, Ayla Consulting Unavailable Addy, Zeynep Consulting Unavailable Zha, Asia Consulting Unavailable Say, Eduardo Consulting Unavailable Augustine, Aleah Consulting Unavailable Bittar, Ricardo Consulting Unavailable Rosario Covarrubias Consulting Unavailable Anil Lema Consulting Unavailable Farzana Barth Consulting Unavailable Mal Bishop Consulting Unavailable Randy, Cele Consulting Unavailable Ridha, Mohamed Consulting Unavailable Zaghlouleh, Mhd Cameron Consulting UnavailLuis Hickey Consulting Unavailable Mills, Rami Consulting Unavailable Darwin, Herberth Consulting Unavailable Jerad, Marissa Consulting Unavailable Hannatommie, Yousef Consulting Unavailable Mitchell Deras Consulting Unavailable Leanne Yañez Attending Unavailable Olee, [facility]be Primary Care Unavailable Hilda Garrison Attending Unavailable Olee, [facility]ongbe Primary Care Unavailable Mitchell Deras Consulting Unavailable Mitchell Deras Admitting Unavailable Sheyla Ortega Attending Unavailable Eric Flores Consulting Unavailable Mitchell Deras Admitting Unavailable Mitchell Deras Consulting Unavailable Olee, Efewongbe Primary Care Unavailable Manuelito Green Attending Unavailable Benji Nasim Consulting Unavailable Olee, [facility] Primary Care Unavailable Brennon Juarez Attending Unavailable Brennon Juarez Referring Unavailable Nasim Leblanc Attending Unavailable Jules Mcmanus Consulting Unavailable Luis Villeda Consulting Unavailable Haile Black Consulting Unavailable Eric Flores Consulting Unavailable Bernabe Roberts Consulting Unavailable Harvey Murphy Consulting Unavailable Sylwia Seth Consulting UnavailJonathan Hevasa Consulting Unavailable Otoniel Simpson Consulting Unavailable Jesika VICTOR, Hesham Sharma Consulting Unavailable Flores Tipton Consulting Unavail able Benji Nasim Consulting Unavailable Manuelito Green Attending Unavailable Manuelito Green Consulting Unavailable Olee, [facility] Primary Care Unavailable Mitchell Deras Referring Unavailable Brennon Coronado Attending Unavailable Olee, [facility]be Primary Care Unavailable Brennon Juarez Referring Unavailable Eric Flores Attending Unavailable Olee, [facility] Primary Care Unavailable Eric Flores Attending Unavailable Olee, [facility] Primary Care Unavailable Harvey Murphy Attending Unavailable Harvey Murphy Referring Unavailable Allergies Allergy Classification Reported Allergen(s) Allergy Type Date of Onset Reaction(s) Facility (20 sources) amoxicillin; Translations: [AMOXICILLIN] drug allergy 5 Vomiting [facility] Work Phone: (9 sources) amoxicillin / clavulanate drug allergy 7 severe rash [facility] Work Phone: (20 sources) codeine; Translations: [CODEINE] drug allergy 5 GI Upset [facility] Work Phone: (17 sources) Amoxicillin; Translations: [amoxicillin trihydrate] Drug Allergy 2 [facility] [place] (17 sources) potassium clavulanate; Translations: [potassium clavulanate] Allergy to substance 2 [facility] [place] (8 sources) Ticagrelor Drug Allergy 4 Shortness of Breath [facility] (1 source) Ticagrelor Drug Allergy 5 [facility] Repository Medications Current Medications Medication Drug Class(es) Dates Sig (Normalized) Sig (Original) aspirin 81 mg chewable tablet (20 sources) Platelet Aggregation Inhibitor, Nonsteroidal Anti-inflammatory Drug Start: 12-22-2016 take 1 tablet by mouth once daily ASPIRIN EC 81 MG TBEC One tablet by mouth daily ASPIRIN [id number] Suly Yoder RN Start: 12-12-2016 End: 04-27-2022 take 1 tablet by mouth once daily Aspirin 81 MG tablet,chewable Active 81 mg PO DAILY April 27, 2022 9:58am [facility] brompheniramine maleate 0.4 mg/ml / dextromethorphan hydrobromide 2 mg/ml / pseudoephedrine hydrochloride 6 mg/ml oral solution (1 source) alpha-Adrenergic Agonist, Uncompetitive V-asbhmc-H-aspartate Receptor Antagonist, Sigma-1 Agonist Start: 10-29-2018 take 5 mL by mouth four times daily as needed Hycgmiqaoucwdxi-Qvxpujduy-UC (BROMFED DM) 2-30-10 mg/5 mL syrup Indications: [...] (SYMBICORT INHALATION) Inhale as instructed. 0 Active clindamycin 300 mg oral capsule (1 source) Lincosamide Antibacterial Start: 07-07-2025 take 2 capsule s by mouth three times daily Clindamycin Hcl (Cleocin Hcl) 300 mg capsule Active 600 mg PO THREE TIMES A DAY 42 7 0 July 07, 2025 12:00am Fluticasone-Umecl idin-Vilanter (1 source) Start: 06-16-2021 Ludmwwmheep-Sedulsqqm-Eqxiud e r Active 1 INH INHALATION DAILY June 16, 2021 4:03pm furosemide 20 mg oral tablet (10 sources) Loop Diuretic Start: 10-13-2024 End: 01-15-2025 take 3 tablets by mouth once daily Furosemide (Lasix) 20 mg tablet Active 60 mg PO DAILY 270 January 15, 2025 9:47am 12 hr guaiFENesin 1200 mg extended release oral tablet (10 sources) Start: 02-10-2025 Guaifenesin (Mucus Relief Er ) 1,200 mg Tablet Extended Release 12hr Active 600 mg PO TWICE A DAY February 10, 2025 12:00am Start: 10-13-2024 End: 02-10-2025 take 1 tablet by mouth twice daily, then take 1 tablet by mouth every twelve hours Guaifenesin (Mucus Relief Er) 1,200 mg Tablet Extended Release 12hr Discontinued 1200 mg PO TWICE A DAY 14 0 October 13, 2024 1:00am February 10, 2025 [...] U-200) 200 unit/mL (3 mL) insulin pen (15 sources) Sta rt: 4 Insulin Degludec (Tresiba Flextouch U-200) 200 unit/mL (3 mL) insulin pen Active 50 U SC AT BEDTIME 22.5 90 1 December 28, 2023 12:57pm blood sugar Start: 12-28-2023 Insulin Deglud ec (Tresiba Flextouch [...] 21, 2023 1:00am December 28, 2023 12:58pm blood sugar Start: 11-21-2023 End: 12-28-2023 Insulin Degludec (Tresiba [...] 24, 2023 1:00am October 13, 2024 2:09pm glucose inject 14 units subcutaneously three times a day (SEE PROTOCOL) Start: 06-01-2021 End: 04-12-2023 Insulin Lispro (Humalog Kwik pen Insulin) 200 unit/mL (3 mL) insulin pen Discontinued 14 U SC THREE TIMES A DAY April 27, 2022 9:58am April 12, 2023 11:53am diabetes Please contact the information source for Protocol details. Start: 05-01-2021 End: 06-01-2021 Insulin Lispro (Humalog Kwik pen Insulin) 200 unit/mL (3 mL) insulin pen Discontinued 0 U SC THREE TIMES A DAY 6 May 26, 2021 8:19am June 01, 2021 2:00pm Please contact the information source for Protocol details. Insulin [place] (Disposable) (1 source) Start: 05-25-2021 Insulin Needle s (Disposable) Active 0 .ROUTE .MEDSUPPLY May 25, 2021 5:28pm As directed 24 hr isosorbide mononitrate 60 mg extended release oral tablet (20 sources) Nitrate Vasodilator Start: 01-15-2024 End: 02-12-2025 take 1 tablet by mouth twice daily, then take 1 tablet by mouth every twenty-four hours Isosorbide Mononitrate 60 mg tablet extended release 24 hr Active 60 mg PO TWICE A DAY 180 February 12, 2025 10:46am heart Start: 12-24-2023 End: 01-15-2024 take 1 tablet by mouth once daily, then take 1 tablet by mouth every twenty-four hours Isosorbide Mononitrate 60 mg tablet extended release 24 hr Discontinued 60 mg PO DAILY December 24, 2023 1:00am January 15, 2024 10:30am heart Start: 04-02-2023 End: 12-24-2023 take 1 tablet [...] 28, 2021 4:33pm January 13, 2022 4:57pm HEART Start: 02-20-2019 End: 02-06-2020 take 1 tablet by mouth once daily, then take 1 tablet by mouth every twenty-four hours Isosorbide Mononitrate 30 mg tablet extended release 24 hr Discontinued 30 mg PO DAILY 90 3 October 14, 2019 5:06pm February 06, 2020 10:34am lisinopril 20 mg oral tablet (20 sources) Angiotensin Converting Enzyme Inhibitor Start: 07-05-2025 take 1 tablet by mouth twice daily Lisinopril 20 mg tablet Active 20 mg PO TWICE A DAY July 05, 2025 12:00am blood pressure Start: 04-28-2021 End: 05-25-2021 take 1 tablet by mouth twice daily Lisinopril 30 mg tablet Discontinued 30 mg PO TWICE A DAY April 28, 2021 12:00am May 25, 2021 5:47pm BP Start: 02-22-2019 End: 03-19-2025 take 1 tablet by mouth twice daily Lisinopril 20 mg tablet Discontinued 20 mg PO TWICE A DAY 180 3 February 12, 2025 10:23am March 19, 2025 9:24am blood pressure polymyxin b [id number] unt/ml / trimethoprim 1 mg/ml ophthalmic solution [...] times daily. 10 mL 0 03/17/2024 Active spironolactone 25 mg oral tablet (1 source) Aldosterone Antagonist Start: 04-28-2021 take 25 mg by mouth once daily Spironolactone Active 25 MG PO DAILY April 28, 2021 2:53pm Completed/Discontinued Medications Medication Drug Class(es) Dates Sig (Normalized) Sig (Original) acetaminophen 325 mg / HYDROcodone bitartrate 5 mg oral tablet (16 sources) Opioid Agonist Start: 11-19-2020 End: 11-21-2020 Hydrocodone-Acetami nophen 1 TABLET tablet Discontinued 1 {tbl} PO EVERY 4 HOURS NEEDED as needed for Pain 10 2 0 November 19, 2020 November 20, 2020 1:00am November 21, 2020 1:02am Calculus of kidney Calculus of kidney Start: 11-19-2020 End: 11-21-2020 take 1 tablet by mouth every four hours as needed Hydrocodone-Acetaminophen Discontinued 1 TABLET PO EVERY 4 HOURS NEEDED 10 2 November 19, 2020 November 21, 2020 1:02am acetaminophen 325 mg / oxyCODONE hydrochloride 5 mg oral tablet (16 sources) Opioid Agonist Start: 12-31-2020 End: 01-05-2021 Oxycodone-Acetaminophen 1 TABLET tablet Discontinued 1 {tbl} PO EVERY 6 HOURS NEEDED as needed for Left flank pain 20 5 0 December 31, 2020 January 04, 2021 1:00am January 05, 2021 1:03am Hydronephrosis with urinary obstruction due to ureteral calculus Hydronephrosis with renal and ureteral calculous obstruction Start: 12-31-2020 End: 01-05-2021 take 1 tablet by mouth every six hours as needed Oxycodone-Acetaminophen Discontinued 1 TABLET PO EVERY 6 HOURS NEEDED 20 5 December 31, 2020 January 05, 2021 1:03am [id number] actuat albuterol 0.09 mg/actuat metered dose inhaler (20 sources) beta2-Adrenergic Agonist Start: 09-25-2024 End: 02-10-2025 Albuterol Sulfate (Ventolin Hfa) 90 mcg/actuation HFA aerosol inhaler Discontinued 2 NMA INHALATION EVERY 4 HOURS NEEDED as needed for Wheezing 1 0 September 25, 2024 1:00am February 10, 2025 7:09pm Start: 12-12-2023 End: 12-24-2023 take 90 ug by inhalation every four to six hours as needed Albuterol Sulfate (Proair Respiclick) 90 mcg/actuation aerosol powdr breath activated Discontinued 0 INHALATION NEEDED as needed for Bronchodilation 1 0 December 12, 2023 8:56am December 24, 2023 4:24pm 1-2 inhalations Q4-6 hours as needed; Start: 04-27-2022 take 1 puff(s) by in halation four times daily Albuterol Sulfate Active 2 PUFF INHALATION 4 TIMES DAILY April 27, 2022 9:46am Start: 04-27-2022 End: 02-11-2025 Albuterol Sulfate 90 mcg/act uation HFA aerosol inhaler Discontinued 2 NMA INHALATION 4 TIMES DAILY as needed for Shortness Of Breath 8.5 0 September 01, 2024 9:12am February 11, 2025 2:55pm Start: 04-27-2022 End: 01-31-2024 take 1 puff(s) by inhalation four times daily Albuterol Sulfate Active 2 PUFF INHALATION 4 TIMES DAILY 8.5 January 31, 2024 6:59pm Start: 11-18-2021 End: 12-12-2023 [...] of Breath. 1 Inhaler 0 10/29/2018 Active amLODIPine 10 mg oral tablet (20 sources) Dihydropyridine Calcium Channel Christi Start: 10-14-2019 End: 02-12-2025 take 1 tablet by mouth once daily Amlodipine 10 mg tablet Discontinued 10 mg PO DAILY 90 3 June 25, 2023 9:26am February 12, 2025 10:48am blood pressure Start: 02-20-2019 End: 10-14-2019 take 2 tablets by mouth once daily Amlodipine 5 mg tablet Discontinued 10 mg PO DAILY 90 October 14, 2019 5:06pm October 14, 2019 5:16pm Start: 02-20-2019 End: 10-14-2019 take 10 mg by mouth once daily Amlodipine Discontinued 10 MG PO DAILY 90 October 14, 2019 5:06pm October 14, 2019 5:16pm Start: 11-22-2018 End: 02-20-2019 take 1 tablet by mouth once daily Amlodipine 5 mg tablet Discontinued 5 mg PO DAILY 30 November 22, 2018 1:00am February 20, 2019 3:55pm Start: 07-03-2017 End: 11-22-2018 take 1 tablet by mouth once daily Amlodipine 10 MG tablet Discontinued 10 mg PO DAILY 30 July 03, 2017 12:00am November 22, 2018 4:44pm Start: 12-22-2016 End: 02-06-2017 take 1 tablet by mouth once daily AMLODIPINE BESYLATE 10 MG TABS One tablet by mouth daily AMLODIPINE BESYLATE [id number] Hesham Canchola REVENUE AUDIT CLERK apixaban 5 mg oral tablet (5 sources) Factor Xa Inhibitor Start: 09-25-2024 End: 02-10-2025 take 2 tablets by mouth twice daily, then take 1 tablet by mouth twice daily Apixaban (Eliquis) 5 mg tablet Discontinued 5 mg PO TWICE A DAY 74 September 25, 2024 1:00am February 10, 2025 7:10pm 10 mg twice a day for the first week. Then 5 mg twice a day. atorvastatin 80 mg oral tablet (20 sources) HMG-CoA Reductase Inhibitor Start: 11-18-2021 End: 02-11-2025 take 1 tablet by mouth at bedtime Atorvastatin 80 mg tablet Discontinued 80 mg PO AT BEDTIME April 27, 2022 9:58am December 28, 2023 12:51pm cholesterol Start: 02-22-2019 End: 11-18-2021 take 1 tablet by mouth at bedtime Atorvastatin 40 mg tablet Discontinued 40 mg PO AT BEDTIME October 20, 2020 10:52am January 07, 2021 4:45pm Start: 12-12-2016 End: 02-20-2019 take 1 tablet by mouth at bedtime Atorvastatin 80 MG tablet Discontinued 80 mg PO AT BEDTIME 18 10January 24, 2018 4:28pm November 22, 2018 5:08pm azithromycin 250 mg oral tablet (11 sources) Macrolide Antimicrobial Start: 11-23-2022 End: 11-21-2023 Azithromycin 250 mg tablet Discontinued 250 mg PO daily 12 November 23, 2022 1:00am November 21, 2023 7:42am 2 tablets today, then 1 tablet daily on days 2 through 11 benzonatate 200 mg oral capsule (5 sources) Non-narcotic Antitussive Start: 10-13-2024 End: 02-10-2025 take 1 capsule by mouth three times daily as needed for cough Benzonatate 200 mg capsule Discontinued 200 mg PO THREE TIMES A DAY as needed for cough 15 October 13, 2024 1:00am February 10, 2025 7:10pm BUDESONIDE-FORMOTE ROL FUMARATE (9 sources) Corticosteroid, beta2-Adrenergic Agonist Start: 12-22-2016 take 2 puff(s) by inhalation twice daily SYMBICORT 80-4.5 MCG/ACT AERO inhale 2 puffs twice daily BUDESONIDE-FORMOT CHASE FUMARATE [id number] Suly Yoder RN Start: 12-22-2016 SYMBICORT 80-4 .5 MCG/ACT AERO inhale 2 puffs twice daily BUDESONIDE-FORMOTEROL FUMARATE [id number] Suly Yoder RN carvedilol 25 mg oral tablet (20 sources) alpha-Adrenergic Christi, beta-Adrenergic Christi Start: 06-26-2022 End: 10-27-2024 take 1 tablet by mouth twice daily at mealtime Carvedilol 25 mg tablet Discontinued 25 mg PO TWICE DAILY WITH MEALS 180 April 24, 2023 12:31pm October 27, 2024 12:01pm heart health Start: 06-05-2022 End: 06-26-2022 take 1 tablet [...] 28, 2021 12:00am November 21, 2023 7:42am water pill Start: 12-09-2016 End: 12-12-2016 take 1 tablet [...] 24, 2023 12:31pm December 15, 2024 11:16am blood pressure Start: 04-28-2021 End: 06-26-2022 take 1 tablet by mouth twice daily Clonidine Hcl 0.2 mg tablet Discontinued 0.2 mg PO TWICE A DAY April 28, 2021 3:02pm June 26, 2022 1:20pm blood pressure Start: 01-21-2021 End: 04-28-2021 take 1 tablet [...] sources) P2Y12 Platelet Inhibitor Start: 02-17-2022 End: 02-12-2025 take 1 tablet by mouth once daily Clopidogrel 75 mg tablet Discontinued 0 .ROUTE .COMPLEX 90 May 28, 2023 9:15am December 24, 2023 4:25pm take 1 tablet by mouth once daily Start: 12-12-2016 End: 11-18-2021 take 1 tablet by mouth once daily Clopidogrel 75 mg tablet Discontinued 75 mg PO DAILY 90 October 20, 2020 10:52am January 07, 2021 4:45pm dapagliflozin 10 mg oral tablet (3 sources) Sodium-Glucose Cotransporter 2 Inhibitor Start: 03-18-2025 End: 03-19-2025 take 1 tablet by mouth once daily in the morning Dapagliflozin Propanediol (Farxiga) 10 mg tablet Discontinued 10 mg PO EVERY MORNING 90 March 18, 2025 12:00am March 19, 2025 9:21am doxycycline monohydrate 100 mg oral capsule (5 sources) Tetracycline-class Drug Start: 10-13-2024 End: 02-10-2025 take 1 capsule by mouth twice daily Doxycycline Monohydrate 100 mg Capsule Discontinued 100 mg PO TWICE A DAY 10 October 13, 2024 1:00am February 10, 2025 7:11pm Fluticasone-Umeclid in-Vilanter (16 sources) Anticholinergic, Corticosteroid, beta2-Adrenergic Agonist Start: 04-28-2021 End: 11-23-2021 Fluticasone-Umecli din-Vilanter (Trelegy Ellipta) 100-62.5-25 mcg Blister With Device Discontinued 1 INH INHALATION DAILY April 28, 2021 3:05pm November 23, 2021 5:10pm Start: 04-28-2021 End: 11-23-2021 Ugdximjbudt-Nvsdfthoc-Dlpprk er (Trelegy Ellipta) 100-62.5-25 mcg Blister With Device Discontinued 1 NMA INHALATION DAILY April 28, 2021 12:00am November 23, 2021 5:10pm Start: 04-28-2021 End: 11-23-2021 Ahuwqcwwpkt-Kwklywbnt-Mxcbsx er (Trelegy Ellipta) 100-62.5-25 mcg Blister With Device Discontinued 1 INH INHALATION DAILY April 27, 2021 11:00pm November 23, 2021 4:10pm Start: 04-28-2021 End: 11-23-2021 Tstpbyswodc-Wbxiyjeny-Stqrmi er (Trelegy Ellipta) 100-62.5-25 mcg Blister With [...] 50 U SC AT BEDTIME 7.5 30 0 April 27, 2023 12:46pm May 26, 2023 12:00am May 27, 2023 12:04am diabetes 3 ml insulin glargine 100 unt/ml pen [...] pen Discontinued 30 U SC AT BEDTIME 15 3 May 26, 2021 8:18am June 01, 2021 2:00pm Start: 05-01-2021 End: 05-06-2021 Insulin Glargine (Lantus Ame ostar U-100 Insulin) 100 unit/mL (3 mL) insulin pen Discontinued 15 U SC TWICE A DAY 15 0 May 01, 2021 12:00am May 06, 2021 7:18pm levoFLOXacin 750 mg oral tablet (20 sources) Quinolone Antimicrobial Start: 02-11-2025 End: 07-05-2025 take 1 tablet by mouth once daily Levofloxacin 750 mg tablet Discontinued 750 mg PO DAILY 5 0 February 11, 2025 12:00am July 05, 2025 8:34pm Start: 01-31-2024 End: 10-13-2024 take 1 tablet by mouth once daily Levofloxacin 750 mg tablet Discontinued 750 mg PO DAILY 7 January 31, 2024 12:00am October 13, 2024 2:10pm Start: 05-01-2021 End: 05-07-2021 take 1 tablet by mouth once daily Levofloxacin 750 mg tablet Discontinued 750 mg PO DAILY 7 May 01, 2021 12:00am May 07, 2021 8:15am Start: 04-28-2021 End: 05-01-2021 take 1 tablet by mouth once daily Levofloxacin 500 mg tablet Discontinued 500 mg PO DAILY April 28, 2021 12:00am May 01, 2021 9:03am levothyroxine sodium 0.05 mg oral tablet (10 sources) l-Thyroxine Start: 12-22-2016 take 1 tablet by mouth once daily LEVOTHYROXINE SODIUM 50 MCG TABS One tablet by mouth daily LEVOTHYROXINE SODIUM [id number] Suly Yoder RN Lidocaine (16 sources) Antiarrhythmic, Amide Local Anesthetic Start: 05-01-2021 End: 06-01-2021 take 1 mL by mouth four times daily as needed for pain Lidocaine Hcl (Lidocaine Viscous) 2 % Solution Discontinued 15 mL PO 4 TIMES DAILY NEEDED as needed for Mouth sores, pain 5 0 May 01, 2021 9:03am June 01, 2021 1:59pm Start: 05-01-2021 End: 06-01-2021 take 1 mL by mouth four times daily as needed for pain Lidocaine Hcl (Lidocaine Viscous) 2 % Solution Discontinued 15 mL PO 4 TIMES DAILY NEEDED as needed for Mouth sores, pain 5 May 01, 2021 9:03am June 01, 2021 [...] 01, 2021 9:03am June 01, 2021 1:59pm loratadine 10 mg oral tablet (20 sources) Start: 02-08-2021 End: 06-26-2022 take 1 tablet by mouth once daily Loratadine 10 mg tablet Discontinued 10 mg PO DAILY 90 1 July 04, 2021 8:37am June 26, 2022 1:49am ALLERGIES metFORMIN hydrochloride 500 mg oral tablet (20 sources) Biguanide Start: 05-01-2021 End: 02-15-2022 take 1 tablet by mouth twice daily Metformin 500 mg tablet Discontinued 500 mg PO TWICE A DAY 90 0 May 01, 2021 12:00am February 15, 2022 4:16pm On Hold: Hold for 2 days Start: 02-20-2019 End: 03-19-2020 take 1 tablet by mouth twice daily Metformin 500 mg tablet Discontinued 500 mg PO TWICE A DAY 0 0 February 22, 2019 10:25am March 19, 2020 9:45am restart on 02/24/2019 metoprolol tartrate 50 mg oral tablet (20 sources) beta-Adrenergic Christi Start: 01-13-2022 End: 06-05-2022 Metoprolol Tartrate 50 mg tablet Discontinued 50 mg PO TWICE A DAY April 27, 2022 9:58am June 05, 2022 4:37pm heart rate Hold for heart less than 60 or systolic blood pressure less than 100 mmHg. Rhetoric titrate his dose to keep heart rate 60 to 70/min Start: 11-18-2021 End: 01-13-2022 Metoprolol Tartrate 25 mg Ta blet Discontinued 25 mg PO TWICE A DAY 60 0 November 18, 2021 1:00am January 13, 2022 4:57pm Hold for heart less than 60 or systolic blood pressure less than 100 mmHg. Rhetoric titrate his dose to keep heart rate 60 to 70/min Start: 02-22-2019 End: 11-18-2021 take 1 tablet by mouth twice daily Metoprolol Tartrate 100 mg tablet Discontinued 100 mg PO TWICE A DAY 180 3 October 20, 2020 10:06am January 07, 2021 [...] 50 mg PO TWICE A DAY 60 0 November 13, 2018 12:42pm November 22, 2018 5:08pm Start: 12-12-2016 End: 07-03-2017 take 1 tablet by mouth twice daily Metoprolol Tartrate 25 MG tablet Discontinued 25 mg PO TWICE A DAY 90 0 December 12, 2016 1:00am July 03, 2017 7:56am 24 hr nicotine 0.583 mg/hr transdermal system (5 sources) Cholinergic Nicotinic Agonist Start: 10-13-2024 End: 02-10-2025 apply 1 dose transdermal route every twenty-four hours Nicotine 14 mg/24 hr Patch 24 Hour Discontinued 14 mg TD DAILY 30 October 13, 2024 1:00am February 10, 2025 7:13pm nitroglycerin 0.4 mg sublingual tablet (20 sources) Nitrate Vasodilator Start: 08-20-2023 End: 12-24-2023 Nitroglycerin 0.4 mg tablet, sublingual Discontinued 0 .ROUTE .COMPLEX 25 December 14, 2023 8:58am December 24, 2023 4:25pm PLACE 1 TABLET UNDER TONGUE FOR CHEST PAIN. CALL 911 IF NO IMPROVEMENT AFTER 5 MIN. REPEAT DOSE TWICE IF NEEDED Start: 12-21-2021 End: 06-01-2025 Nitroglycerin 0.4 mg tablet, sublingual Discontinued 0.4 mg SL every 5 to 15 minutes 25 July 22, 2024 1:06pm June 01, 2025 1:41pm chest pain nortriptyline 25 mg oral capsule (16 sources) Tricyclic Antidepressant Start: 06-01-2021 End: 08-17-2021 take 1 capsule by mouth at bedtime Nortriptyline 25 mg capsule Discontinued 25 mg PO AT BEDTIME 30 June 01, 2021 12:00am August 17, 2021 4:39pm nystatin [id number] unt/ml oral suspension (16 sources) Polyene Antifungal Start: 05-01-2021 End: 06-01-2021 take [id number] [IU] by mouth four times daily Nystatin 100,000 unit/mL Suspension Discontinued [id number] U PO 4 TIMES DAILY 140 7 May 01, 2021 12:00am June 01, 2021 1:59pm microencapsulated potassium chloride 20 meq extended release oral tablet (5 sources) Start: 10-13-2024 End: 07-05-2025 take 1 tablet by mouth twice daily at mealtime Potassium Chloride 20 mEq Tablet,Er Particles/Crystal s Discontinued 20 meq PO TWICE DAILY WITH MEALS 60 October 13, 2024 1:00am July 05, 2025 8:34pm predniSONE 20 mg oral tablet (20 sources) Start: 02-11-2025 End: 07-05-2025 take 2 tablets by mouth at breakfast Prednisone 20 mg Tablet Discontinued 40 mg PO WITH BREAKFAST 8 February 11, 2025 12:00am July 05, 2025 8:34pm Start: 10-13-2024 End: 02-10-2025 Prednisone 20 mg tablet Disc ontinued 20 mg PO TWICE A DAY 11 October 13, 2024 1:00am February 10, 2025 7:14pm 1 twice a day for 3 days, then 1 daily for 3 days, then one half daily for 4 days then stop Start: 06-08-2022 End: 06-08-2022 take 2 tablets by mouth once daily Prednisone 20 mg tablet Discontinued 40 mg PO DAILY 6 June 08, 2022 12:00am June 08, 2022 4:36pm Start: 06-08-2022 End: 06-08-2022 take 40 mg by mouth once daily Prednisone Discontinued 40 MG PO DAILY June 08, 2022 12:00am June 08, 2022 4:36pm Start: 05-07-2021 End: 06-01-2021 take 1 tablet by mouth once daily Prednisone 5 mg Tablet Discontinued 5 mg PO DAILY May 07, 2021 12:00am June 01, 2021 1:59pm steroid last dose is today Start: 04-28-2021 End: [...] tablet Disc ontinued 10 mg PO DAILY 32 November 25, 2018 9:35am February 20, 2019 3:55pm 40mg for 3 days, 30mg for 3 days, 20mg for 3 days, 10mg for 3 days, 5mg for 3 days Start: 11-22-2018 End: 02-20-2019 Prednisone Discontinued 10 M G PO DAILY 32 November 25, 2018 9:35am February 20, 2019 3:55pm 40mg for 3 days, 30mg for 3 days, 20mg for 3 days, 10mg for 3 days, 5mg for 3 days 12 hr ranolazine 1000 mg extended release oral tablet (20 sources) Anti-anginal Start: 12-14-2023 End: 02-12-2025 take 1 tablet by mouth twice daily Ranolazine 1,000 mg tablet extended release 12 hr Discontinued 1000 mg PO TWICE A DAY 60 January 03, 2024 4:32pm February 12, 2025 10:23am heart Start: 07-10-2022 End: 12-14-2023 take 1 tablet by mouth twice daily Ranolazine (Ranexa) 500 mg tablet extended release 12 hr Discontinued 500 mg PO TWICE A DAY 60 July 10, 2022 12:00am December 14, 2023 4:53pm rosuvastatin calcium 40 mg oral tablet (16 sources) HMG-CoA Reductase Inhibitor Start: 02-20-2019 End: 02-22-2019 take 1 tablet by mouth once daily Rosuvastatin 40 mg tablet Discontinued 40 mg PO DAILY February 20, 2019 12:00am February 22, 2019 10:22am sacubitril / valsartan (3 sources) Angiotensin 2 Receptor Christi Start: 03-19-2025 End: 07-05-2025 take 1 tablet by mouth twice daily Sacubitril-Valsar higuera (Entresto) 24-26 mg tablet Discontinued 1 {tbl} PO .COMPLEX 60 March 19, 2025 12:00am July 05, 2025 8:34pm 1 TAB orally TWICE DAILY; PLEASE STOP LISINOPRIL 2 DAYS PRIOR TO STARTING THIS MEDICATION; SUMAtriptan 50 mg oral tablet (16 sources) Serotonin-1b and Serotonin-1d Receptor Agonist Start: 06-01-2021 End: 08-17-2021 take 1 tablet by mouth every two hours Sumatriptan Succinate (Imitrex) 50 mg tablet Discontinued 0 PO .COMPLEX 10 0 June 01, 2021 12:00am August 17, 2021 [...] tablet by mouth daily as needed TADALAFIL [id number] Suly Yoder RN ticagrelor 90 mg oral tablet (16 sources) Start: 11-18-2021 End: 02-17-2022 take 1 tablet by mouth twice daily Ticagrelor (Brilinta) 90 mg Tablet Discontinued 90 mg PO TWICE A DAY 60 2 November 18, 2021 1:00am February 17, 2022 4:44pm valsartan 320 mg oral tablet (20 sources) Angiotensin 2 Receptor Christi Start: 12-27-2016 End: 02-22-2019 take 1 tablet by mouth once daily Valsartan 320 mg tablet Discontinued 320 mg PO daily 30 January 24, 2018 1:00am November 22, 2018 5:08pm Problems Active Problems Problem Classification Problem Date Documented Date Episodic/Chronic Acute and unspecified renal failure (16 sources) Injury of kidney; Translations: [Acute kidney failure, unspecified] 04-28-2021 Episodic Acute cerebrovascular disease (13 sources) Cerebrovascular accident; Translations: [Cerebral infarction, unspecified] Onset: 5 02-10-2025 Chronic Acute myocardial infarction (20 sources) Non-ST elevation (NSTEMI) myocardial infarction; Translations: [Acute subendocardial infarction] Onset: 7 04-27-2017 Chronic Asthma (3 sources) Asthma; Translations: [Unspecified asthma, uncomplicated] 03-06-2025 Chronic Chronic obstructive pulmonary disease and bronchiectasis (20 sources) Chronic obstructive lung disease; Translations: [Chronic obstructive pulmonary disease, unspecified] Onset: 7 12-22-2016 Chronic Chronic obstructive pulmonary disease and bronchiectasis (16 sources) Bronchitis; Translations: [Bronchitis, not specified as acute or chronic] 07-18-2014 Episodic Conditions associated with dizziness or vertigo (16 sources) Dizziness; Translations: [Dizziness and giddiness] 01-22-2021 Episodic Congestive heart failure; nonhypertensive (9 sources) Congestive heart failure; Translations: [Heart failure, unspecified] Onset: 4 10-21-2024 Chronic Coronary atherosclerosis and other heart disease (20 sources) Atherosclerotic heart disease of [place] coronary artery without angina pectoris; Translations: [Coronary atherosclerosis] Onset: 7 04-27-2017 Chronic Comment on above: 11/2016; 02/20/19 Coronary atherosclerosis and other heart disease (8 sources) Presence of coronary angioplasty implant and graft; Translations: [Percutaneous transluminal coronary angioplasty status] Onset: 1 Episodic Diabetes mellitus with complications (20 sources) Hyperosmolar hyperglycemic coma due to diabetes mellitus without ketoacidosis; Translations: [Type 2 diabetes mellitus with hyperosmolarity with coma] Onset: 5 04-28-2021 Chronic Diabetes mellitus without complication (20 sources) Diabetes mellitus; Translations: [Insulin dependent diabetes mellitus] Chronic Diabetes mellitus without complication (2 sources) Diabetes mellitus without complication Diseases of mouth; excluding dental (7 sources) Parotitis; Translations: [Sialoadenitis, unspecified] Onset: 5 07-06-2025 Episodic Diseases of white blood cells (7 sources) Leukocytosis; Translations: [Elevated white blood cell count, unspecified] Onset: 5 07-06-2025 Chronic Disorders of lipid metabolism (17 sources) Hyperlipidemia; Translations: [Hyperlipidemia, unspecified] Onset: 7 12-22-2016 Chronic Essential hypertension (20 sources) Hypertensive disorder; Translations: [Essential hypertension] Onset: 7 12-22-2016 Chronic Headache; including migraine (20 sources) Cluster headache; Translations: [Cluster headache syndrome, unspecified, not intractable] 06-01-2021 Chronic Headache; including migraine (16 sources) Headache; Translations: [Headache] 08-17-2021 Episodic Hypertension with complications and secondary hypertension (20 sources) Hypertensive urgency ; Translations: [Hypertensive urgency] Onset: 5 Chronic Inflammation; infection of eye (except that caused by tuberculosis or sexually transmitteddisease) (1 source) Bacterial conjunctivitis; Translations: [Unspecified conjunctivitis] 03-17-2024 Episodic Mycoses (16 sources) Candidiasis of mouth; Translations: [Candidal stomatitis] 04-28-2021 Episodic Nonspecific chest pain (20 sources) Chest pain; Translations: [Chest pain, unspecified] Onset: 5 Episodic Nutritional deficiencies (7 sources) Vitamin D deficiency; Translations: [Vitamin D deficiency, unspecified] 01-15-2024 Chronic Other aftercare (1 source) 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; Translations: [[facility] (current) use of insulin] Onset: 5 Episodic Other circulatory disease (11 sources) H/O: heart disorder; Translations: [Personal history of other diseases of the circulatory system] 11-21-2023 Episodic Other diseases of kidney and ureters (5 sources) Hydronephrosis; Translations: [Hydronephrosis with renal and ureteral calculous obstruction] Episodic Other diseases of kidney and ureters (11 sources) Hydronephrosis with renal and ureteral calculous obstruction; Translations: [Hydronephrosis with urinary obstruction due to ureteral calculus] 01-01-2021 Episodic Other hematologic conditions (20 sources) Raised cardiac enzyme or marker; Translations: [Other specified abnormalities of plasma proteins] 01-07-2021 Episodic Other lower respiratory disease (5 sources) Respiratory insufficiency; Translations: [Other abnormalities of breathing] 10-21-2024 Episodic Other lower respiratory disease (5 sources) Hypoxia; Translations: [Hypoxemia] 10-10-2024 Episodic Other non-traumatic joint disorders (3 sources) Shoulder pain; Translations: [Pain in left shoulder] Episodic Other non-traumatic joint disorders (14 sources) Pain in left shoulder; Translations: [Pain in joint, shoulder region] Episodic Other nutritional; endocrine; and metabolic disorders (2 sources) Body mass index (BMI) 31.0-31.9, adult; Translations: [Body mass index (BMI) 31.0-31.9, adult] Onset: 7 07-17-2017 Chronic Other nutritional; endocrine; and metabolic disorders (16 sources) Obese class I; Translations: [Obesity, unspecified] 01-21-2021 Chronic Other nutritional; endocrine; and metabolic disorders (16 sources) Obesity; Translations: [Obesity, unspecified] 05-13-2021 Chronic Other nutritional; endocrine; and metabolic disorders (7 sources) Obesity, unspecified; Translations: [Obesity, unspecified] Onset: Chronic Other nutritional; endocrine; and metabolic disorders (10 sources) Body mass index 30+ - obesity; Translations: [Obesity, unspecified] 02-11-2025 Chronic Other screening for suspected conditions (not mental disorders or infectious disease) (20 sources) Electrocardiogram abnormal; Translations: [Abnormal electrocardiogram [ECG] [EKG]] Onset: 5 11-26-2023 Episodic Other skin disorders (16 sources) Eruption; Translations: [Rash and other nonspecific skin eruption] 02-21-2019 Episodic Other upper respiratory infections (11 sources) Acute sinusitis; Translations: [Acute sinusitis, unspecified] 11-23-2022 Episodic Residual codes; unclassified (11 sources) Left against medical advice; Translations: [Procedure and treatment not carried out because of patient's decision for other reasons] 11-21-2023 Episodic Residual codes; unclassified (5 sources) Peripheral edema; Translations: [Localized edema] 10-10-2024 Episodic Septicemia (except in labor) (16 sources) Sepsis; Translations: [Sepsis, unspecified organism] 05-16-2021 [...] angioplasty implant and graft] Onset: 7 04-27-2017 Unclassified (2 sources) History of coronary artery stent placement Unclassified (2 sources) Left ventricular ejection fraction of 21% to 30% Unclassified (2 sources) Primary hypertension Unclassified (2 sources) Unclassified (2 sources) I21.4 - Non-ST elevation (NSTEMI) myocardial infarction,Z95.5 - Presence of coronary angioplasty implant and graft,R93.1 - Abnormal findings on diagnostic imaging of heart and coronary circulation,I50.9 - Heart failure, unspecified,I25.10 - Atherosclerotic heart disease of [place] coronary artery without angina pectoris,I10 - Essential (primary) hypertension,I25.5 - Ischemic cardiomyopathy,J44.9 - Chronic obstructive pulmonary disease, unspecified Past or Other Problems Problem Classification Problem Date Documented Da te Episodic/Chronic Acute bronchitis (14 sources) Acute bacterial bronchitis; Translations: [Acute bronchitis due to other specified organisms] Onset: 10-13-2024 02-11-2025 Episodic Bacterial infection; unspecified site (17 sources) Bacteremia; Translations: [Bacteremia] Onset: 02-13-2025 05-06-2021 Episodic Other hematologic conditions (1 source) Other specified [...] Onset: 12-08-2024 Episodic Phlebitis; thrombophlebitis and thromboembolism (11 sources) H/O: Deep vein thrombosis; Translations: [Personal history of other venous thrombosis and embolism] Onset: 10-13-2024 10-21-2024 Episodic Pneumonia (except that caused by tuberculosis or sexually transmitted disease) (20 sources) Community acquired pneumonia; Translations: [Pneumonia, unspecified organism] Onset: 02-11-2025 10-07-2021 Episodic Residual codes; unclassified (15 sources) Edema of lower extremity; Translations: [Generalized edema] Onset: 02-06-2017 02-06-2017 Episodic Residual codes; unclassified (3 sources) Generalized edema; Translations: [Anasarca] Onset: 02-06-2017 02-06-2017 Episodic Unclassified (16 sources) Borderline elevated troponin 02-24-2019 Results Test Name Value Interpretation Reference Range Facility 12 Lead EKGon 09-22-2025 12 Lead EKG Normal [facility] Basic Metabolic Profile (BMP )on 09-22-2025 BUN/CRE 17.4 RATIO Normal 10-20 [facility] Comment on above: Performed By: #### L 100.0100, L500.2500 ####[facility] [address] [place], [address] Calcium [Mass/Vol] 9.4 mg/dL Normal 7.6-11.0 [facility] Comment on above: Performed By: #### L 100.0100, L500.2500 ####[facility] [address] [place], [address] Chloride [Moles/Vol] 103 mmol/L Normal 98-[address] [facility] Comment on above: Performed By: #### L 100.0100, L500.2500 ####[facility] [address] [place], [address] CO2 [Moles/Vol] 26.2 mmol/L Normal 21.0-32.0 [facility] Comment on above: Performed By: #### L 100.0100, L500.2500 ####[facility] [address] [place], [address] Creatinine [Mass/Vol] 0.86 mg/dL Normal 0.70-1.20 [facility] Comment on above: Performed By: #### L 100.0100, L500.2500 ####[facility] [address] [place], [address] ECRCL 113.44 ml/min Normal 50-250 [facility] Comment on above: Performed By: #### L 100.0100, L500.2500 ####[facility] [address] [place], [address] GAP 11 Normal 5-15 [facility] Comment on above: Performed By: #### L 100.0100, L500.2500 ####[facility] [address] [place], [address] GFR/1.73 sq M.predicted among non-blacks MDRD (S/P/Bld) [Vol rate/Area] 103 mL/min/{1.73_m2} Normal >60 [facility] Comment on above: Result Comment: mL/m in/1.73m2 CKD-EPI Creatinine Equation (2020) Performed By: #### L 100.0100, L500.2500 ####[facility] [address] [place], [address] Glucose [Mass/Vol] 177 mg/dL High 70-99 [facility] Comment on above: Performed By: #### L 100.0100, L500.2500 ####[facility] [address] [place], [address] Potassium [Moles/Vol] 3.6 mmol/L Normal 3.3-5.1 [facility] Comment on above: Performed By: #### L 100.0100, L500.2500 ####[facility] [address] [place], [address] Sodium [Moles/Vol] 140 mmol/L Normal 133-145 [facility] Comment on above: Performed By: #### L 100.0100, L500.2500 ####[facility] [address] [place], [address] Urea nitrogen [Mass/Vol] 15 mg/dL Normal 4-19 [facility] Comment on above: Performed By: #### L 100.0100, L500.2500 ####[facility] [address] [place], [address] Bedside Glucoseon 09-22-2025 FINGERSTICK GLU 187 mg/dL High 74-106 [facility] Comment on above: Result Comment: CARLOS BONILLA OF PATIENT CARE PER NURSING PROTOCOL Performed By: #### L 501.080 ####[facility] [address] [place], [address] Brain/Head without Contrasto n 09-22-2025 Brain/Head without Contrast Normal [facility] CBC W/Diff, Automatedon 11-0 Absolute Lymph 2.39 X10 3/uL Normal 0.83-4.51 [facility] Comment on above: Performed By: #### L 100.0100, L500.2500 ####[facility] [address] [place], [address] Absolute Neut 4.9 X10 3/uL Normal 2.0-7.7 [facility] Comment on above: Performed By: #### L 100.0100, L500.2500 ####[facility] [address] [place], [address] Basophils/100 WBC (Bld) 0.5 % Normal 0-1 [facility] Comment on above: Performed By: #### L 100.0100, L500.2500 ####[facility] [address] [place], [address] Eosinophils/100 WBC (Bld) 1.9 % Normal 0-5 [facility] Comment on above: Performed By: #### L 100.0100, L500.2500 ####[facility] [address] [place], [address] Erythrocyte distribution width (RBC) [Ratio] 13.1 % Normal 11.6-14.6 [facility] Comment on above: Performed By: #### L 100.0100, L500.2500 ####[facility] [address] [place], [address] Hematocrit (Bld) [Volume fraction] 41.9 % Normal 40-54 [facility] Comment on above: Performed By: #### L 100.0100, L500.2500 ####[facility] [address] [place], [address] Hemoglobin (Bld) [Mass/Vol] 14.3 g/dL Normal 13.0-16.5 [facility] Comment on above: Performed By: #### L 100.0100, L500.2500 ####[facility] [address] [place], [address] IG% 0.200 Normal 0.0-0.9 [facility] Comment on above: Result Comment: IG% - Immature Granulocytes (promyelocytes, myelocytes andmetamyelocytes) > 1% indicates that a LEFT SHIFT is Present. Performed By: #### L 100.0100, L500.2500 ####[facility] [address] [place], [address] Lymphocytes/100 WBC (Bld) 29.0 % Normal 19-41 [facility] Comment on above: Performed By: #### L 100.0100, L500.2500 ####[facility] [address] [place], [address] MCH (RBC) [Entitic mass] 28.9 pg Normal 27.0-32.0 [facility] Comment on above: Performed By: #### L 100.0100, L500.2500 ####[facility] [address] [place], [address] MCHC (RBC) [Mass/Vol] 34.1 g/dL Normal 32-36 [facility] Comment on above: Performed By: #### L 100.0100, L500.2500 ####[facility] [address] [place], [address] MCV (RBC) [Entitic vol] 84.6 fL Normal 80-94 [facility] Comment on above: Performed By: #### L 100.0100, L500.2500 ####[facility] [address] [place], [address] Monocytes/100 WBC (Bld) 9.1 % Normal 0-10 [facility] Comment on above: Performed By: #### L 100.0100, L500.2500 ####[facility] [address] [place], [address] Neutrophils/100 WBC (Bld) 59.3 % Normal 47-70 [facility] Comment on above: Performed By: #### L 100.0100, L500.2500 ####[facility] [address] [place], [address] Nucleated RBC (Bld) [#/Vol] 0 10*3/uL Normal 0-5 [facility] Comment on above: Performed By: #### L 100.0100, L500.2500 ####[facility] [address] [place], [address] Platelet mean volume (Bld) [Entitic vol] 10.9 fL Normal 6.2-12.0 [facility] Comment on above: Performed By: #### L 100.0100, L500.2500 ####[facility] [address] [place], [address] Platelets (Bld) [#/Vol] 316 10*3/uL Normal 150-450 [facility] Comment on above: Performed By: #### L 100.0100, L500.2500 ####[facility] [address] [place], [address] RBC (Bld) [#/Vol] 4.95 10*6/uL Normal 4.6-6.2 [facility] Comment on above: Performed By: #### L 100.0100, L500.2500 ####[facility] [address] [place], [address] RDW SD 40.4 fl Normal 35.1-43.9 [facility] Comment on above: Performed By: #### L 100.0100, L500.2500 ####[facility] [address] [place], [address] WBC (Bld) [#/Vol] 8.2 10*3/uL Normal 4.4-11.0 [facility] Comment on above: Performed By: #### L 100.0100, L500.2500 ####[facility] [address] [place], [address] Chest PA and Lateralon 09-22 Chest PA and Lateral Normal [facility] Emergency Department Summary on 09-22-2025 Emergency Department Summary Normal [facility] HIP, UNI W/ Pelvis 2-3 Views on 09-22-2025 HIP, UNI W/ Pelvis 2-3 Views Normal [facility] L501.4021on 09-22-2025 Trop T High Sen 18 ng/L Normal <=22 [facility] Comment on above: Performed By: #### L 501.4021 ####[facility] [address] [place], [address] Troponin T HS 2 HRon 025 Trop T High Sen 20 ng/L Normal <=22 [facility] Comment on above: Performed By: #### L 499.0042 ####[facility] [address] [place], [address] Troponin T HS 4 HRon 025 Trop T High Sen Normal <=22 [facility] Comment on above: Result Comment: Canc elled via OM: Pt has been DC'd Performed By: #### L 499.0043 ####[facility] [address] [place], [address] Basic Metabolic Profile (BMP )on 07-14-2025 BUN Normal 4-19 [facility] Comment on above: Result Comment: Canc elled via OM: Order cancelled - Patient discharged Performed By: #### L 500.2500, L100.0100 ####[facility] [address] [place], [address] BUN/CRE Normal 10-20 [facility] Comment on above: Result Comment: Canc elled via OM: Order cancelled - Patient discharged Performed By: #### L 500.2500, L100.0100 ####[facility] [address] [place], [address] Calcium Normal 7.6-11.0 [facility] Comment on above: Result Comment: Canc elled via OM: Order cancelled - Patient discharged Performed By: #### L 500.2500, L100.0100 ####[facility] [address] [place], [address] CL Normal 98-108 [facility] Comment on above: Result Comment: Canc elled via OM: Order cancelled - Patient discharged Performed By: #### L 500.2500, L100.0100 ####[facility] [address] [place], [address] CO2 Normal 21.0-32.0 [facility] Comment on above: Result Comment: Canc elled via OM: Order cancelled - Patient discharged Performed By: #### L 500.2500, L100.0100 ####[facility] [address] [place], [address] CREAT,SERUM Normal 0.70-1.20 [facility] Comment on above: Result Comment: Canc elled via OM: Order cancelled - Patient discharged Performed By: #### L 500.2500, L100.0100 ####[facility] [address] [place], [address] eGFR Normal >60 [facility] Comment on above: Result Comment: Canc elled via OM: Order cancelled - Patient discharged Performed By: #### L 500.2500, L100.0100 ####[facility] [address] [place], [address] GAP Normal 5-15 [facility] Comment on above: Result Comment: Canc elled via OM: Order cancelled - Patient discharged Performed By: #### L 500.2500, L100.0100 ####[facility] [address] [place], [address] GLU Normal 70-99 [facility] Comment on above: Result Comment: Canc elled via OM: Order cancelled - Patient discharged Performed By: #### L 500.2500, L100.0100 ####[facility] [address] [place], [address] Potassium Normal 3.3-5.1 [facility] Comment on above: Result Comment: Canc elled via OM: Order cancelled - Patient discharged Performed By: #### L 500.2500, L100.0100 ####[facility] [address] [place], [address] Basic Metabolic Profile (BMP) Normal 133-145 [facility] Comment on above: Result Comment: Canc elled via OM: Order cancelled - Patient discharged Performed By: #### L 500.2500, L100.0100 ####[facility] [address] [place], [address] CBC W/Diff, Automatedon 08-2 Absolute Neut Normal 2.0-7.7 [facility] Comment on above: Result Comment: Canc elled via OM: Order cancelled - Patient discharged Performed By: #### L 500.2500, L100.0100 ####[facility] [address] [place], [address] HCT Normal 40-54 [facility] Comment on above: Result Comment: Canc elled via OM: Order cancelled - Patient discharged Performed By: #### L 500.2500, L100.0100 ####[facility] [address] [place], [address] HGB Normal 13.0-16.5 [facility] Comment on above: Result Comment: Canc elled via OM: Order cancelled - Patient discharged Performed By: #### L 500.2500, L100.0100 ####[facility] [address] [place], [address] MCH Normal 27.0-32.0 [facility] Comment on above: Result Comment: Canc elled via OM: Order cancelled - Patient discharged Performed By: #### L 500.2500, L100.0100 ####[facility] [address] [place], [address] MCHC Normal 32-36 [facility] Comment on above: Result Comment: Canc elled via OM: Order cancelled - Patient discharged Performed By: #### L 500.2500, L100.0100 ####[facility] [address] [place], [address] MCV Normal 80-94 [facility] Comment on above: Result Comment: Canc elled via OM: Order cancelled - Patient discharged Performed By: #### L 500.2500, L100.0100 ####[facility] [address] [place], [address] NEUT% Normal 47-70 [facility] Comment on above: Result Comment: Canc elled via OM: Order cancelled - Patient discharged Performed By: #### L 500.2500, L100.0100 ####[facility] [address] [place], [address] PLT Normal 150-450 [facility] Comment on above: Result Comment: Canc elled via OM: Order cancelled - Patient discharged Performed By: #### L 500.2500, L100.0100 ####[facility] [address] [place], [address] RBC Normal 4.6-6.2 [facility] Comment on above: Result Comment: Canc elled via OM: Order cancelled - Patient discharged Performed By: #### L 500.2500, L100.0100 ####[facility] [address] [place], [address] RDW CV Normal 11.6-14.6 [facility] Comment on above: Result Comment: Canc elled via OM: Order cancelled - Patient discharged Performed By: #### L 500.2500, L100.0100 ####[facility] [address] [place], [address] RDW SD Normal 35.1-43.9 [facility] Comment on above: Result Comment: Canc elled via OM: Order cancelled - Patient discharged Performed By: #### L 500.2500, L100.0100 ####[facility] [address] [place], [address] WBC Normal 4.4-11.0 [facility] Comment on above: Result Comment: Canc elled via OM: Order cancelled - Patient discharged Performed By: #### L 500.2500, L100.0100 ####[facility] [address] [place], [address] Basic Metabolic Profile (BMP )on 07-13-2025 BUN Normal 4-19 [facility] Comment on above: Result Comment: Canc elled via OM: Order cancelled - Patient discharged Performed By: #### L 500.2500, L100.0100 ####[facility] [address] [place], [address] BUN/CRE Normal 10-20 [facility] Comment on above: Result Comment: Canc elled via OM: Order cancelled - Patient discharged Performed By: #### L 500.2500, L100.0100 ####[facility] [address] [place], [address] Calcium Normal 7.6-11.0 [facility] Comment on above: Result Comment: Canc elled via OM: Order cancelled - Patient discharged Performed By: #### L 500.2500, L100.0100 ####[facility] [address] [place], [address] CL Normal 98-108 [facility] Comment on above: Result Comment: Canc elled via OM: Order cancelled - Patient discharged Performed By: #### L 500.2500, L100.0100 ####[facility] [address] [place], [address] CO2 Normal 21.0-32.0 [facility] Comment on above: Result Comment: Canc elled via OM: Order cancelled - Patient discharged Performed By: #### L 500.2500, L100.0100 ####[facility] [address] [place], [address] CREAT,SERUM Normal 0.70-1.20 [facility] Comment on above: Result Comment: Canc elled via OM: Order cancelled - Patient discharged Performed By: #### L 500.2500, L100.0100 ####[facility] [address] [place], [address] eGFR Normal >60 [facility] Comment on above: Result Comment: Canc elled via OM: Order cancelled - Patient discharged Performed By: #### L 500.2500, L100.0100 ####[facility] [address] [place], [address] GAP Normal 5-15 [facility] Comment on above: Result Comment: Canc elled via OM: Order cancelled - Patient discharged Performed By: #### L 500.2500, L100.0100 ####[facility] [address] [place], [address] GLU Normal 70-99 [facility] Comment on above: Result Comment: Canc elled via OM: Order cancelled - Patient discharged Performed By: #### L 500.2500, L100.0100 ####[facility] [address] [place], [address] Potassium Normal 3.3-5.1 [facility] Comment on above: Result Comment: Canc elled via OM: Order cancelled - Patient discharged Performed By: #### L 500.2500, L100.0100 ####[facility] [address] [place], [address] Basic Metabolic Profile (BMP) Normal 133-145 [facility] Comment on above: Result Comment: Canc elled via OM: Order cancelled - Patient discharged Performed By: #### L 500.2500, L100.0100 ####[facility] [address] [place], [address] CBC W/Diff, Automatedon 08-2 -2024 Absolute Neut Normal 2.0-7.7 [facility] Comment on above: Result Comment: Canc elled via OM: Order cancelled - Patient discharged Performed By: #### L 500.2500, L100.0100 ####[facility] [address] [place], [address] HCT Normal 40-54 [facility] Comment on above: Result Comment: Canc elled via OM: Order cancelled - Patient discharged Performed By: #### L 500.2500, L100.0100 ####[facility] [address] [place], [address] HGB Normal 13.0-16.5 [facility] Comment on above: Result Comment: Canc elled via OM: Order cancelled - Patient discharged Performed By: #### L 500.2500, L100.0100 ####[facility] [address] [place], [address] MCH Normal 27.0-32.0 [facility] Comment on above: Result Comment: Canc elled via OM: Order cancelled - Patient discharged Performed By: #### L 500.2500, L100.0100 ####[facility] [address] [place], [address] MCHC Normal 32-36 [facility] Comment on above: Result Comment: Canc elled via OM: Order cancelled - Patient discharged Performed By: #### L 500.2500, L100.0100 ####[facility] [address] [place], [address] MCV Normal 80-94 [facility] Comment on above: Result Comment: Canc elled via OM: Order cancelled - Patient discharged Performed By: #### L 500.2500, L100.0100 ####[facility] [address] [place], [address] NEUT% Normal 47-70 [facility] Comment on above: Result Comment: Canc elled via OM: Order cancelled - Patient discharged Performed By: #### L 500.2500, L100.0100 ####[facility] [address] [place], [address] PLT Normal 150-450 [facility] Comment on above: Result Comment: Canc elled via OM: Order cancelled - Patient discharged Performed By: #### L 500.2500, L100.0100 ####[facility] [address] [place], [address] RBC Normal 4.6-6.2 [facility] Comment on above: Result Comment: Canc elled via OM: Order cancelled - Patient discharged Performed By: #### L 500.2500, L100.0100 ####[facility] [address] [place], [address] RDW CV Normal 11.6-14.6 [facility] Comment on above: Result Comment: Canc elled via OM: Order cancelled - Patient discharged Performed By: #### L 500.2500, L100.0100 ####[facility] [address] [place], [address] RDW SD Normal 35.1-43.9 [facility] Comment on above: Result Comment: Canc elled via OM: Order cancelled - Patient discharged Performed By: #### L 500.2500, L100.0100 ####[facility] [address] [place], [address] WBC Normal 4.4-11.0 [facility] Comment on above: Result Comment: Canc elled via OM: Order cancelled - Patient discharged Performed By: #### L 500.2500, L100.0100 ####[facility] [address] [place], [address] Basic Metabolic Profile (BMP )on 07-12-2025 BUN Normal 4-19 [facility] Comment on above: Result Comment: Canc elled via OM: Order cancelled - Patient discharged Performed By: #### L 100.0100, L500.2500 ####[facility] [address] [place], [address] BUN/CRE Normal 10-20 [facility] Comment on above: Result Comment: Canc elled via OM: Order cancelled - Patient discharged Performed By: #### L 100.0100, L500.2500 ####[facility] [address] [place], [address] Calcium Normal 7.6-11.0 [facility] Comment on above: Result Comment: Canc elled via OM: Order cancelled - Patient discharged Performed By: #### L 100.0100, L500.2500 ####[facility] [address] [place], [address] CL Normal 98-108 [facility] Comment on above: Result Comment: Canc elled via OM: Order cancelled - Patient discharged Performed By: #### L 100.0100, L500.2500 ####[facility] [address] [place], [address] CO2 Normal 21.0-32.0 [facility] Comment on above: Result Comment: Canc elled via OM: Order cancelled - Patient discharged Performed By: #### L 100.0100, L500.2500 ####[facility] [address] [place], [address] CREAT,SERUM Normal 0.70-1.20 [facility] Comment on above: Result Comment: Canc elled via OM: Order cancelled - Patient discharged Performed By: #### L 100.0100, L500.2500 ####[facility] [address] [place], [address] eGFR Normal >60 [facility] Comment on above: Result Comment: Canc elled via OM: Order cancelled - Patient discharged Performed By: #### L 100.0100, L500.2500 ####[facility] [address] [place], [address] GAP Normal 5-15 [facility] Comment on above: Result Comment: Canc elled via OM: Order cancelled - Patient discharged Performed By: #### L 100.0100, L500.2500 ####[facility] [address] [place], [address] GLU Normal 70-99 [facility] Comment on above: Result Comment: Canc elled via OM: Order cancelled - Patient discharged Performed By: #### L 100.0100, L500.2500 ####[facility] [address] [place], [address] Potassium Normal 3.3-5.1 [facility] Comment on above: Result Comment: Canc elled via OM: Order cancelled - Patient discharged Performed By: #### L 100.0100, L500.2500 ####[facility] [address] [place], [address] Basic Metabolic Profile (BMP) Normal 133-145 [facility] Comment on above: Result Comment: Canc elled via OM: Order cancelled - Patient discharged Performed By: #### L 100.0100, L500.2500 ####[facility] [address] [place], [address] CBC W/Diff, Automatedon 08-2 Absolute Neut Normal 2.0-7.7 [facility] Comment on above: Result Comment: Canc elled via OM: Order cancelled - Patient discharged Performed By: #### L 100.0100, L500.2500 ####[facility] [address] [place], [address] HCT Normal 40-54 [facility] Comment on above: Result Comment: Canc elled via OM: Order cancelled - Patient discharged Performed By: #### L 100.0100, L500.2500 ####[facility] [address] [place], [address] HGB Normal 13.0-16.5 [facility] Comment on above: Result Comment: Canc elled via OM: Order cancelled - Patient discharged Performed By: #### L 100.0100, L500.2500 ####[facility] [address] [place], [address] MCH Normal 27.0-32.0 [facility] Comment on above: Result Comment: Canc elled via OM: Order cancelled - Patient discharged Performed By: #### L 100.0100, L500.2500 ####[facility] [address] [place], [address] MCHC Normal 32-36 [facility] Comment on above: Result Comment: Canc elled via OM: Order cancelled - Patient discharged Performed By: #### L 100.0100, L500.2500 ####[facility] [address] [place], [address] MCV Normal 80-94 [facility] Comment on above: Result Comment: Canc elled via OM: Order cancelled - Patient discharged Performed By: #### L 100.0100, L500.2500 ####[facility] [address] [place], [address] NEUT% Normal 47-70 [facility] Comment on above: Result Comment: Canc elled via OM: Order cancelled - Patient discharged Performed By: #### L 100.0100, L500.2500 ####[facility] [address] [place], [address] PLT Normal 150-450 [facility] Comment on above: Result Comment: Canc elled via OM: Order cancelled - Patient discharged Performed By: #### L 100.0100, L500.2500 ####[facility] [address] [place], [address] RBC Normal 4.6-6.2 [facility] Comment on above: Result Comment: Canc elled via OM: Order cancelled - Patient discharged Performed By: #### L 100.0100, L500.2500 ####[facility] [address] [place], [address] RDW CV Normal 11.6-14.6 [facility] Comment on above: Result Comment: Canc elled via OM: Order cancelled - Patient discharged Performed By: #### L 100.0100, L500.2500 ####[facility] [address] [place], [address] RDW SD Normal 35.1-43.9 [facility] Comment on above: Result Comment: Canc elled via OM: Order cancelled - Patient discharged Performed By: #### L 100.0100, L500.2500 ####[facility] [address] [place], [address] WBC Normal 4.4-11.0 [facility] Comment on above: Result Comment: Canc elled via OM: Order cancelled - Patient discharged Performed By: #### L 100.0100, L500.2500 ####[facility] [address] [place], [address] Basic Metabolic Profile (BMP )on 07-11-2025 BUN Normal 4-19 [facility] Comment on above: Result Comment: Canc elled via OM: Order cancelled - Patient discharged Performed By: #### L 500.2500, L100.0100 ####[facility] [address] [place], [address] BUN/CRE Normal 10-20 [facility] Comment on above: Result Comment: Canc elled via OM: Order cancelled - Patient discharged Performed By: #### L 500.2500, L100.0100 ####[facility] [address] [place], [address] Calcium Normal 7.6-11.0 [facility] Comment on above: Result Comment: Canc elled via OM: Order cancelled - Patient discharged Performed By: #### L 500.2500, L100.0100 ####[facility] [address] [place], [address] CL Normal 98-108 [facility] Comment on above: Result Comment: Canc elled via OM: Order cancelled - Patient discharged Performed By: #### L 500.2500, L100.0100 ####[facility] [address] [place], [address] CO2 Normal 21.0-32.0 [facility] Comment on above: Result Comment: Canc elled via OM: Order cancelled - Patient discharged Performed By: #### L 500.2500, L100.0100 ####[facility] [address] [place], [address] CREAT,SERUM Normal 0.70-1.20 [facility] Comment on above: Result Comment: Canc elled via OM: Order cancelled - Patient discharged Performed By: #### L 500.2500, L100.0100 ####[facility] [address] [place], [address] eGFR Normal >60 [facility] Comment on above: Result Comment: Canc elled via OM: Order cancelled - Patient discharged Performed By: #### L 500.2500, L100.0100 ####[facility] [address] [place], [address] GAP Normal 5-15 [facility] Comment on above: Result Comment: Canc elled via OM: Order cancelled - Patient discharged Performed By: #### L 500.2500, L100.0100 ####[facility] [address] [place], [address] GLU Normal 70-99 [facility] Comment on above: Result Comment: Canc elled via OM: Order cancelled - Patient discharged Performed By: #### L 500.2500, L100.0100 ####[facility] [address] [place], [address] Potassium Normal 3.3-5.1 [facility] Comment on above: Result Comment: Canc elled via OM: Order cancelled - Patient discharged Performed By: #### L 500.2500, L100.0100 ####[facility] [address] [place], [address] Basic Metabolic Profile (BMP) Normal 133-145 [facility] Comment on above: Result Comment: Canc elled via OM: Order cancelled - Patient discharged Performed By: #### L 500.2500, L100.0100 ####[facility] [address] [place], [address] CBC W/Diff, Automatedon 08-2 Absolute Neut Normal 2.0-7.7 [facility] Comment on above: Result Comment: Canc elled via OM: Order cancelled - Patient discharged Performed By: #### L 500.2500, L100.0100 ####[facility] [address] [place], [address] HCT Normal 40-54 [facility] Comment on above: Result Comment: Canc elled via OM: Order cancelled - Patient discharged Performed By: #### L 500.2500, L100.0100 ####[facility] [address] [place], [address] HGB Normal 13.0-16.5 [facility] Comment on above: Result Comment: Canc elled via OM: Order cancelled - Patient discharged Performed By: #### L 500.2500, L100.0100 ####[facility] [address] [place], [address] MCH Normal 27.0-32.0 [facility] Comment on above: Result Comment: Canc elled via OM: Order cancelled - Patient discharged Performed By: #### L 500.2500, L100.0100 ####[facility] [address] [place], [address] MCHC Normal 32-36 [facility] Comment on above: Result Comment: Canc elled via OM: Order cancelled - Patient discharged Performed By: #### L 500.2500, L100.0100 ####[facility] [address] [place], [address] MCV Normal 80-94 [facility] Comment on above: Result Comment: Canc elled via OM: Order cancelled - Patient discharged Performed By: #### L 500.2500, L100.0100 ####[facility] [address] [place], [address] NEUT% Normal 47-70 [facility] Comment on above: Result Comment: Canc elled via OM: Order cancelled - Patient discharged Performed By: #### L 500.2500, L100.0100 ####[facility] [address] [place], [address] PLT Normal 150-450 [facility] Comment on above: Result Comment: Canc elled via OM: Order cancelled - Patient discharged Performed By: #### L 500.2500, L100.0100 ####[facility] [address] [place], [address] RBC Normal 4.6-6.2 [facility] Comment on above: Result Comment: Canc elled via OM: Order cancelled - Patient discharged Performed By: #### L 500.2500, L100.0100 ####[facility] [address] [place], [address] RDW CV Normal 11.6-14.6 [facility] Comment on above: Result Comment: Canc elled via OM: Order cancelled - Patient discharged Performed By: #### L 500.2500, L100.0100 ####[facility] [address] [place], [address] RDW SD Normal 35.1-43.9 [facility] Comment on above: Result Comment: Canc elled via OM: Order cancelled - Patient discharged Performed By: #### L 500.2500, L100.0100 ####[facility] [address] [place], [address] WBC Normal 4.4-11.0 [facility] Comment on above: Result Comment: Canc elled via OM: Order cancelled - Patient discharged Performed By: #### L 500.2500, L100.0100 ####[facility] [address] [place], [address] Basic Metabolic Profile (BMP )on 07-10-2025 BUN Normal 4-19 [facility] Comment on above: Result Comment: Canc elled via OM: Order cancelled - Patient discharged Performed By: #### L 100.0100, L500.2500 ####[facility] [address] [place], [address] BUN/CRE Normal 10-20 [facility] Comment on above: Result Comment: Canc elled via OM: Order cancelled - Patient discharged Performed By: #### L 100.0100, L500.2500 ####[facility] [address] [place], [address] Calcium Normal 7.6-11.0 [facility] Comment on above: Result Comment: Canc elled via OM: Order cancelled - Patient discharged Performed By: #### L 100.0100, L500.2500 ####[facility] [address] [place], [address] CL Normal 98-108 [facility] Comment on above: Result Comment: Canc elled via OM: Order cancelled - Patient discharged Performed By: #### L 100.0100, L500.2500 ####[facility] [address] [place], [address] CO2 Normal 21.0-32.0 [facility] Comment on above: Result Comment: Canc elled via OM: Order cancelled - Patient discharged Performed By: #### L 100.0100, L500.2500 ####[facility] [address] [place], [address] CREAT,SERUM Normal 0.70-1.20 [facility] Comment on above: Result Comment: Canc elled via OM: Order cancelled - Patient discharged Performed By: #### L 100.0100, L500.2500 ####[facility] [address] [place], [address] eGFR Normal >60 [facility] Comment on above: Result Comment: Canc elled via OM: Order cancelled - Patient discharged Performed By: #### L 100.0100, L500.2500 ####[facility] [address] [place], [address] GAP Normal 5-15 [facility] Comment on above: Result Comment: Canc elled via OM: Order cancelled - Patient discharged Performed By: #### L 100.0100, L500.2500 ####[facility] [address] [place], [address] GLU Normal 70-99 [facility] Comment on above: Result Comment: Canc elled via OM: Order cancelled - Patient discharged Performed By: #### L 100.0100, L500.2500 ####[facility] [address] [place], [address] Potassium Normal 3.3-5.1 [facility] Comment on above: Result Comment: Canc elled via OM: Order cancelled - Patient discharged Performed By: #### L 100.0100, L500.2500 ####[facility] [address] [place], [address] Basic Metabolic Profile (BMP) Normal 133-145 [facility] Comment on above: Result Comment: Canc elled via OM: Order cancelled - Patient discharged Performed By: #### L 100.0100, L500.2500 ####[facility] [address] [place], [address] CBC W/Diff, Automatedon - Absolute Neut Normal 2.0-7.7 [facility] Comment on above: Result Comment: Canc elled via OM: Order cancelled - Patient discharged Performed By: #### L 100.0100, L500.2500 ####[facility] [address] [place], [address] HCT Normal 40-54 [facility] Comment on above: Result Comment: Canc elled via OM: Order cancelled - Patient discharged Performed By: #### L 100.0100, L500.2500 ####[facility] [address] [place], [address] HGB Normal 13.0-16.5 [facility] Comment on above: Result Comment: Canc elled via OM: Order cancelled - Patient discharged Performed By: #### L 100.0100, L500.2500 ####[facility] [address], [address] MCH Normal 27.0-32.0 [facility] Comment on above: Result Comment: Canc elled via OM: Order cancelled - Patient discharged Performed By: #### L 100.0100, L500.2500 ####[facility] [address] [place], [address] MCHC Normal 32-36 [facility] Comment on above: Result Comment: Canc elled via OM: Order cancelled - Patient discharged Performed By: #### L 100.0100, L500.2500 ####[facility] [address] [place], [address] MCV Normal 80-94 [facility] Comment on above: Result Comment: Canc elled via OM: Order cancelled - Patient discharged Performed By: #### L 100.0100, L500.2500 ####[facility] [address] [place], [address] NEUT% Normal 47-70 [facility] Comment on above: Result Comment: Canc elled via OM: Order cancelled - Patient discharged Performed By: #### L 100.0100, L500.2500 ####[facility] [address] [place], [address] PLT Normal 150-450 [facility] Comment on above: Result Comment: Canc elled via OM: Order cancelled - Patient discharged Performed By: #### L 100.0100, L500.2500 ####[facility] [address] [place], [address] RBC Normal 4.6-6.2 [facility] Comment on above: Result Comment: Canc elled via OM: Order cancelled - Patient discharged Performed By: #### L 100.0100, L500.2500 ####[facility] [address] [place], [address] RDW CV Normal 11.6-14.6 [facility] Comment on above: Result Comment: Canc elled via OM: Order cancelled - Patient discharged Performed By: #### L 100.0100, L500.2500 ####[facility] [address] [place], [address] RDW SD Normal 35.1-43.9 [facility] Comment on above: Result Comment: Canc elled via OM: Order cancelled - Patient discharged Performed By: #### L 100.0100, L500.2500 ####[facility] [address] [place], [address] WBC Normal 4.4-11.0 [facility] Comment on above: Result Comment: Canc elled via OM: Order cancelled - Patient discharged Performed By: #### L 100.0100, L500.2500 ####[facility] [address] [place], [address] Basic Metabolic Profile (BMP )on 07-09-2025 BUN Normal 4-19 [facility] Comment on above: Result Comment: Canc elled via OM: Order cancelled - Patient discharged Performed By: #### L 100.0100, L500.2500 ####[facility] [address] [place], [address] BUN/CRE Normal 10-20 [facility] Comment on above: Result Comment: Canc elled via OM: Order cancelled - Patient discharged Performed By: #### L 100.0100, L500.2500 ####[facility] [address] [place], [address] Calcium Normal 7.6-11.0 [facility] Comment on above: Result Comment: Canc elled via OM: Order cancelled - Patient discharged Performed By: #### L 100.0100, L500.2500 ####[facility] [address] [place], [address] CL Normal 98-108 [facility] Comment on above: Result Comment: Canc elled via OM: Order cancelled - Patient discharged Performed By: #### L 100.0100, L500.2500 ####[facility] [address] [place], [address] CO2 Normal 21.0-32.0 [facility] Comment on above: Result Comment: Canc elled via OM: Order cancelled - Patient discharged Performed By: #### L 100.0100, L500.2500 ####[facility] [address] [place], [address] CREAT,SERUM Normal 0.70-1.20 [facility] Comment on above: Result Comment: Canc elled via OM: Order cancelled - Patient discharged Performed By: #### L 100.0100, L500.2500 ####[facility] [address] [place], [address] eGFR Normal >60 [facility] Comment on above: Result Comment: Canc elled via OM: Order cancelled - Patient discharged Performed By: #### L 100.0100, L500.2500 ####[facility] [address] [place], [address] GAP Normal 5-15 [facility] Comment on above: Result Comment: Canc elled via OM: Order cancelled - Patient discharged Performed By: #### L 100.0100, L500.2500 ####[facility] [address] [place], [address] GLU Normal 70-99 [facility] Comment on above: Result Comment: Canc elled via OM: Order cancelled - Patient discharged Performed By: #### L 100.0100, L500.2500 ####[facility] [address] [place], [address] Potassium Normal 3.3-5.1 [facility] Comment on above: Result Comment: Canc elled via OM: Order cancelled - Patient discharged Performed By: #### L 100.0100, L500.2500 ####[facility] [address] [place], [address] Basic Metabolic Profile (BMP) Normal 133-145 [facility] Comment on above: Result Comment: Canc elled via OM: Order cancelled - Patient discharged Performed By: #### L 100.0100, L500.2500 ####[facility] [address] [place], [address] CBC W/Diff, Automatedon 08-2 Absolute Neut Normal 2.0-7.7 [facility] Comment on above: Result Comment: Canc elled via OM: Order cancelled - Patient discharged Performed By: #### L 100.0100, L500.2500 ####[facility] [address] [place], [address] HCT Normal 40-54 [facility] Comment on above: Result Comment: Canc elled via OM: Order cancelled - Patient discharged Performed By: #### L 100.0100, L500.2500 ####[facility] [address] [place], [address] HGB Normal 13.0-16.5 [facility] Comment on above: Result Comment: Canc elled via OM: Order cancelled - Patient discharged Performed By: #### L 100.0100, L500.2500 ####[facility] [address] [place], [address] MCH Normal 27.0-32.0 [facility] Comment on above: Result Comment: Canc elled via OM: Order cancelled - Patient discharged Performed By: #### L 100.0100, L500.2500 ####[facility] [address] [place], [address] MCHC Normal 32-36 [facility] Comment on above: Result Comment: Canc elled via OM: Order cancelled - Patient discharged Performed By: #### L 100.0100, L500.2500 ####[facility] [address] [place], [address] MCV Normal 80-94 [facility] Comment on above: Result Comment: Canc elled via OM: Order cancelled - Patient discharged Performed By: #### L 100.0100, L500.2500 ####[facility] [address] [place], [address] NEUT% Normal 47-70 [facility] Comment on above: Result Comment: Canc elled via OM: Order cancelled - Patient discharged Performed By: #### L 100.0100, L500.2500 ####[facility] [address], [address] PLT Normal 150-450 [facility] Comment on above: Result Comment: Canc elled via OM: Order cancelled - Patient discharged Performed By: #### L 100.0100, L500.2500 ####[facility] [address] [place], [address] RBC Normal 4.6-6.2 [facility] Comment on above: Result Comment: Canc elled via OM: Order cancelled - Patient discharged Performed By: #### L 100.0100, L500.2500 ####[facility] [address] [place], [address] RDW CV Normal 11.6-14.6 [facility] Comment on above: Result Comment: Canc elled via OM: Order cancelled - Patient discharged Performed By: #### L 100.0100, L500.2500 ####[facility] [address] [place], [address] RDW SD Normal 35.1-43.9 [facility] Comment on above: Result Comment: Canc elled via OM: Order cancelled - Patient discharged Performed By: #### L 100.0100, L500.2500 ####[facility] [address] [place], [address] WBC Normal 4.4-11.0 [facility] Comment on above: Result Comment: Canc elled via OM: Order cancelled - Patient discharged Performed By: #### L 100.0100, L500.2500 ####[facility] [address] [place], [address] Basic Metabolic Profile (BMP )on 07-08-2025 BUN Normal 4-19 [facility] Comment on above: Result Comment: Canc elled via OM: Order cancelled - Patient discharged Performed By: #### L 100.0100, L500.2500 ####[facility] [address] [place], [address] BUN/CRE Normal 10-20 [facility] Comment on above: Result Comment: Canc elled via OM: Order cancelled - Patient discharged Performed By: #### L 100.0100, L500.2500 ####[facility] [address] [place], [address] Calcium Normal 7.6-11.0 [facility] Comment on above: Result Comment: Canc elled via OM: Order cancelled - Patient discharged Performed By: #### L 100.0100, L500.2500 ####[facility] [address] [place], [address] CL Normal 98-108 [facility] Comment on above: Result Comment: Canc elled via OM: Order cancelled - Patient discharged Performed By: #### L 100.0100, L500.2500 ####[facility] [address], [address] CO2 Normal 21.0-32.0 [facility] Comment on above: Result Comment: Canc elled via OM: Order cancelled - Patient discharged Performed By: #### L 100.0100, L500.2500 ####[facility] [address] [place], [address] CREAT,SERUM Normal 0.70-1.20 [facility] Comment on above: Result Comment: Canc elled via OM: Order cancelled - Patient discharged Performed By: #### L 100.0100, L500.2500 ####[facility] [address] [place], [address] eGFR Normal >60 [facility] Comment on above: Result Comment: Canc elled via OM: Order cancelled - Patient discharged Performed By: #### L 100.0100, L500.2500 ####[facility] [address] [place], [address] GAP Normal 5-15 [facility] Comment on above: Result Comment: Canc elled via OM: Order cancelled - Patient discharged Performed By: #### L 100.0100, L500.2500 ####[facility] [address] [place], [address] GLU Normal 70-99 [facility] Comment on above: Result Comment: Canc elled via OM: Order cancelled - Patient discharged Performed By: #### L 100.0100, L500.2500 ####[facility] [address] [place], [address] Potassium Normal 3.3-5.1 [facility] Comment on above: Result Comment: Canc elled via OM: Order cancelled - Patient discharged Performed By: #### L 100.0100, L500.2500 ####[facility] [address] [place], [address] Basic Metabolic Profile (BMP) Normal 133-145 [facility] Comment on above: Result Comment: Canc elled via OM: Order cancelled - Patient discharged Performed By: #### L 100.0100, L500.2500 ####[facility] [address] [place], [address] CBC W/Diff, Automatedon 08-2 0-2024 Absolute Neut Normal 2.0-7.7 [facility] Comment on above: Result Comment: Canc elled via OM: Order cancelled - Patient discharged Performed By: #### L 100.0100, L500.2500 ####[facility] [address] [place], [address] HCT Normal 40-54 [facility] Comment on above: Result Comment: Canc elled via OM: Order cancelled - Patient discharged Performed By: #### L 100.0100, L500.2500 ####[facility] [address], [address] HGB Normal 13.0-16.5 [facility] Comment on above: Result Comment: Canc elled via OM: Order cancelled - Patient discharged Performed By: #### L 100.0100, L500.2500 ####[facility] [address] [place], [address] MCH Normal 27.0-32.0 [facility] Comment on above: Result Comment: Canc elled via OM: Order cancelled - Patient discharged Performed By: #### L 100.0100, L500.2500 ####[facility] [address] [place], [address] MCHC Normal 32-36 [facility] Comment on above: Result Comment: Canc elled via OM: Order cancelled - Patient discharged Performed By: #### L 100.0100, L500.2500 ####[facility] [address] [place], [address] MCV Normal 80-94 [facility] Comment on above: Result Comment: Canc elled via OM: Order cancelled - Patient discharged Performed By: #### L 100.0100, L500.2500 ####[facility] [address] [place], [address] NEUT% Normal 47-70 [facility] Comment on above: Result Comment: Canc elled via OM: Order cancelled - Patient discharged Performed By: #### L 100.0100, L500.2500 ####[facility] [address] [place], [address] PLT Normal 150-450 [facility] Comment on above: Result Comment: Canc elled via OM: Order cancelled - Patient discharged Performed By: #### L 100.0100, L500.2500 ####[facility] [address] [place], [address] RBC Normal 4.6-6.2 [facility] Comment on above: Result Comment: Canc elled via OM: Order cancelled - Patient discharged Performed By: #### L 100.0100, L500.2500 ####[facility] [address] [place], [address] RDW CV Normal 11.6-14.6 [facility] Comment on above: Result Comment: Canc elled via OM: Order cancelled - Patient discharged Performed By: #### L 100.0100, L500.2500 ####[facility] [address] [place], [address] RDW SD Normal 35.1-43.9 [facility] Comment on above: Result Comment: Canc elled via OM: Order cancelled - Patient discharged Performed By: #### L 100.0100, L500.2500 ####[facility] [address] [place], [address] WBC Normal 4.4-11.0 [facility] Comment on above: Result Comment: Canc elled via OM: Order cancelled - Patient discharged Performed By: #### L 100.0100, L500.2500 ####[facility] [address] [place], [address] Vitamin D 1,25-Dihydroxyon 0 07-08-2025 VIT D 1,25 DIHY 16.8 pg/mL Abnormal 24.8-81.5 [facility] Comment on above: Result Comment: Perf ormed at: [facility] [address] [id number] Director: Saundra Anderson MD, Phone: [phone] Performed By: #### L 3300.0960, L501.9100, L300.8000, L501.9985, L505.5000 ####[facility] [address] [place], [address] Absolute lymphocyte countOrd ered By: Sheylaazra Ortega on 07-07-2025 Lymphocytes Auto (Unsp spec) [#/Vol] 2.40 10*3/uL 0.83-4.51 [facility] Absolute neutrophil countOrd ered By: Sheyla Ortega on 07-07-2025 Neutrophils (Bld) [#/Vol] 6.3 10*3/uL 2.0-7.7 [facility] Anion gap in Serum or Plasma Ordered By: Sheyla Ortega on 07-07-2025 Anion gap [Moles/Vol] 13 mmol/L 5- [facility] Automated lymphocyte count a s percentage of total leukocytesOrdered By: Sheyla Ortega on 07-07-2025 Lymphocytes/100 WBC Auto (Unsp spec) 23.6 % - [facility] BUN/creatinine ratioOrdered By: Sheyla Ortega on 07-07-2025 Urea nitrogen/Creatinine [Mass ratio] 13.2 mg/mg - [facility] Basic Metabolic Profile (BMP )on 07-07-2025 BUN/CRE 13.2 RATIO Normal - [facility] Comment on above: Performed By: #### L 500.2500, L100.0100 ####[facility] [address] [place], [address] Calcium [Mass/Vol] 9.1 mg/dL Normal 7.6-11.0 [facility] Comment on above: Performed By: #### L 500.2500, L100.0100 ####[facility] [address] [place], [address] Chloride [Moles/Vol] 102 mmol/L Normal 98-[address] [facility] Comment on above: Performed By: #### L 500.2500, L100.0100 ####[facility] [address] [place], [address] CO2 [Moles/Vol] 24.8 mmol/L Normal 21.0-32.0 [facility] Comment on above: Performed By: #### L 500.2500, L100.0100 ####[facility] [address] [place], [address] Creatinine [Mass/Vol] 1.06 mg/dL Normal 0.70-1.20 [facility] Comment on above: Performed By: #### L 500.2500, L100.0100 ####[facility] [address] [place], [address] ECRCL 93.70 ml/min Normal 50-250 [facility] Comment on above: Performed By: #### L 500.2500, L100.0100 ####[facility] [address], [address] GAP 13 Normal 5-15 [facility] Comment on above: Performed By: #### L 500.2500, L100.0100 ####[facility] [address] [place], [address] GFR/1.73 sq M.predicted among non-blacks MDRD (S/P/Bld) [Vol rate/Area] 84 mL/min/{1.73_m2} Normal >60 [facility] Comment on above: Result Comment: mL/m in/1.73m2 CKD-EPI Creatinine Equation (2020) Performed By: #### L 500.2500, L100.0100 ####[facility] [address] [place], [address] Glucose [Mass/Vol] 207 mg/dL High 70-99 [facility] Comment on above: Performed By: #### L 500.2500, L100.0100 ####[facility] [address] [place], [address] Potassium [Moles/Vol] 3.4 mmol/L Normal 3.3-5.1 [facility] Comment on above: Performed By: #### L 500.2500, L100.0100 ####[facility] [address] [place], [address] Sodium [Moles/Vol] 139 mmol/L Normal 133-145 [facility] Comment on above: Performed By: #### L 500.2500, L100.0100 ####[facility] [address] [place], [address] Urea nitrogen [Mass/Vol] 14 mg/dL Normal 4-19 [facility] Comment on above: Performed By: #### L 500.2500, L100.0100 ####[facility] [address] [place], [address] Basophil percentageOrdered B y: Sheyla Ortega on 07-07-2025 Basophils/100 WBC (Bld) 0.4 % 0-1 [facility] Bedside Glucoseon 07-07-2025 FINGERSTICK GLU 205 mg/dL High 74-106 [facility] Comment on above: Result Comment: CARLOS GEMENT OF PATIENT CARE PER NURSING PROTOCOL Performed By: #### L 501.080 ####[facility] [address] [place], [address] FINGERSTICK GLU 139 mg/dL High 74-106 [facility] Comment on above: Result Comment: CARLOS GEMENT OF PATIENT CARE PER NURSING PROTOCOL Performed By: #### L 501.080 ####[facility] [address] [place], [address] CBC W/Diff, Automatedon 06-19 Absolute Lymph 2.40 X10 3/uL Normal 0.83-4.51 [facility] Comment on above: Performed By: #### L 500.2500, L100.0100 ####[facility] [address] [place], [address] Absolute Neut 6.3 X10 3/uL Normal 2.0-7.7 [facility] Comment on above: Performed By: #### L 500.2500, L100.0100 ####[facility] [address] [place], [address] Basophils/100 WBC (Bld) 0.4 % Normal 0-1 [facility] Comment on above: Performed By: #### L 500.2500, L100.0100 ####[facility] [address] [place], [address] Eosinophils/100 WBC (Bld) 1.7 % Normal 0-5 [facility] Comment on above: Performed By: #### L 500.2500, L100.0100 ####[facility] [address] [place], [address] Erythrocyte distribution width (RBC) [Ratio] 13.4 % Normal 11.6-14.6 [facility] Comment on above: Performed By: #### L 500.2500, L100.0100 ####[facility] [address] [place], [address] Hematocrit (Bld) [Volume fraction] 39.3 % Low 40-54 [facility] Comment on above: Performed By: #### L 500.2500, L100.0100 ####[facility] [address] [place], [address] Hemoglobin (Bld) [Mass/Vol] 13.4 g/dL Normal 13.0-16.5 [facility] Comment on above: Performed By: #### L 500.2500, L100.0100 ####[facility] [address] [place], [address] IG% 0.400 Normal 0.0-0.9 [facility] Comment on above: Result Comment: IG% - Immature Granulocytes (promyelocytes, myelocytes andmetamyelocytes) > 1% indicates that a LEFT SHIFT is Present. Performed By: #### L 500.2500, L100.0100 ####[facility] [address] [place], [address] Lymphocytes/100 WBC (Bld) 23.6 % Normal 19-41 [facility] Comment on above: Performed By: #### L 500.2500, L100.0100 ####[facility] [address] [place], [address] MCH (RBC) [Entitic mass] 29.1 pg Normal 27.0-32.0 [facility] Comment on above: Performed By: #### L 500.2500, L100.0100 ####[facility] [address] [place], [address] MCHC (RBC) [Mass/Vol] 34.1 g/dL Normal 32-36 [facility] Comment on above: Performed By: #### L 500.2500, L100.0100 ####[facility] [address] [place], [address] MCV (RBC) [Entitic vol] 85.2 fL Normal 80-94 [facility] Comment on above: Performed By: #### L 500.2500, L100.0100 ####[facility] [address] [place], [address] Monocytes/100 WBC (Bld) 12.7 % High 0-10 [facility] Comment on above: Performed By: #### L 500.2500, L100.0100 ####[facility] [address] [place], [address] Neutrophils/100 WBC (Bld) 61.2 % Normal 47-70 [facility] Comment on above: Performed By: #### L 500.2500, L100.0100 ####[facility] [address] [place], [address] Nucleated RBC (Bld) [#/Vol] 0 10*3/uL Normal 0-5 [facility] Comment on above: Performed By: #### L 500.2500, L100.0100 ####[facility] [address] [place], [address] Platelet mean volume (Bld) [Entitic vol] 10.6 fL Normal 6.2-12.0 [facility] Comment on above: Performed By: #### L 500.2500, L100.0100 ####[facility] [address] [place], [address] Platelets (Bld) [#/Vol] 212 10*3/uL Normal 150-450 [facility] Comment on above: Performed By: #### L 500.2500, L100.0100 ####[facility] [address] [place], [address] RBC (Bld) [#/Vol] 4.61 10*6/uL Normal 4.6-6.2 [facility] Comment on above: Performed By: #### L 500.2500, L100.0100 ####[facility] [address] [place], [address] RDW SD 41.6 fl Normal 35.1-43.9 [facility] Comment on above: Performed By: #### L 500.2500, L100.0100 ####[facility] [address] [place], [address] WBC (Bld) [#/Vol] 10.2 10*3/uL Normal 4.4-11.0 [facility] Comment on above: Performed By: #### L 500.2500, L100.0100 ####[facility] [address] [place], [address] Carbon dioxide, total [Moles /volume] in Central venous bloodOrdered By: Sheyla Ortega on 07-07-2025 CO2 [Moles/Vol] 24.8 mmol/L 21.0-32.0 [facility] Chloride assayOrdered By: Na na Shannon on 07-07-2025 Chloride [Moles/Vol] 102 mmol/L 98-[address] [facility] Discharge Instructionon 06-19 Discharge Instruction Normal [facility] Electrocardiogram reportOrde red By: Eric Flores on 07-07-2025 EKG study [facility] Cardiovascular Services [address] [place] [address] 12 Lead EKG 07/06/25 0204 MR#: [id number] Acct: [id number] Name: LATONYA ELDER Rep #:[id number] : 1970 54 From: Eric Flores MD Attending Dr: Dr. Sheyla Ortega MD Status: ADM SINDY Ordering Dr: Mitchell Deras DO Date: 07/06/25 Location: [facility] Sex: M C Admitted: 07/06/25 Test Reason : CP ADMIT Blood Pressure : */* mmHG Vent. Rate : 86 BPM Atrial Rate : 86 BPM P-R Int : 196 ms QRS Dur : 116 ms QT Int : 394 ms P-R-T Axes : 56 -17 55 degrees QTcB Int : 471 ms Normal sinus rhythm Possible Left atrial enlargement Left ventricular hypertrophy with QRS widening ( Westfir product ) Abnormal ECG When compared with ECG of 05-Jul-2025 20:38, MANUAL COMPARISON REQUIRED DATA IS UNCONFIRMED Confirmed by ERIC FLORES MD ([id number]), assistant editor EVELIO CURRY ([id number]) on 56:14:13 AM Referred By: Confirmed By: ERIC FLORES MD 07/07/25 0614 Date _ Eric Flores MD CC: Dr. Mitchell Deras DO; Dr. Beka Bowie MD; Dr. Sheyla Ortega MD ~ Signed [facility] Work Phone: EKG study [facility] Cardiovascular Services [address] [place] [address] 12 Lead EKG 07/05/252037 MR#: [id number] Acct: [id number] Name: LATONYA ELDER Rep #:[id number] : 1970 54 From: Eric Flores MD Attending Dr: Dr. Sheyla Ortega MD Status: ADM SINDY Ordering Dr: Brennon Mckeon DO Date: 0 07/05/25 Location: [facility] Sex: M C Admitted: 07/06/25 Test Reason : CP Blood Pressure : */* mmHG Vent. Rate : 104 BPM Atrial Rate : 104 BPM P-R Int : 200 ms QRS Dur : 112 ms QT Int : 350 ms P-R-T Axes : 78 -28 71 degrees QTcB Int : 460 ms Sinus tachycardia Possible Left atrial enlargement Septal infarct , age undetermined Abnormal ECG Confirmed by BIRGIT EVANGELISTA, ERIC ([id number]), assistant editor EVELIO CURRY ([id number]) on 56:12:39 AM Referred By: DR MARS Confirmed By: ERIC FLORES MD 07/07/25 0612 Date _ Eric Flores MD CC: Dr. Beka Bowie MD; Dr. Brennon Mckeon DO; Dr. Sheyla Ortega MD ~ Signed [facility] Work Phone: Eosinophil percentageOrdered By: Sheyla Ortega on 07-07-2025 Eosinophils/100 WBC (Bld) 1.7 % 0-5 [facility] Erythrocyte distribution wid th ratioOrdered By: Sheyla rOtega on 07-07-2025 Erythrocyte distribution width (RBC) [Ratio] 13.4 % 11.6-14.6 [facility] Erythrocyte distribution wid th standard deviationOrdered By: Sheyla Ortega on 07-07-2025 Erythrocyte distribution width (RBC) [Ratio] 41.6 fl 35.1-43.9 [facility] Glomerular filtration rate ( GFR) estimation/1.73 sq m using serum, plasma, or whole bOrdered By: Sheyla Ortega on 07-07-2025 GFR/1.73 sq M.predicted among non-blacks MDRD (S/P/Bld) [Vol rate/Area] 84 mL/min/{1.73_m2} >60 [facility] Comment on above: mL/min/1.73m2 CKD-EP I Creatinine Equation (2020) Glucose measurement at bedsi deOrdered By: Sheyla Ortega on 07-07-2025 Glucose [Mass/Vol] 205 mg/dL High 74-106 [facility] Comment on above: MANAGEMENT OF PATIEN T CARE PER NURSING PROTOCOL Hematocrit Auto (Bld) [Volum e fraction]Ordered By: Sheyla Ortega on 07-07-2025 Hematocrit (Bld) [Volume fraction] 39.3 % Low 40-54 [facility] Hemoglobin measurementOrdere d By: Sheyla Ortega on 07-07-2025 Hemoglobin (Bld) [Mass/Vol] 13.4 g/dL 13.0-16.5 [facility] Immature granulocytes/100 WB C Auto (Bld)Ordered By: Sheyla Ortega on 07-07-2025 Immature granulocytes/100 WBC (Bld) 0.400 % 0.0-0.9 [facility] Comment on above: IG% - Immature Granu locytes (promyelocytes, myelocytes and metamyelocytes) > 1% indicates that a LEFT SHIFT is Present. MCV (mean corpuscular volume ) determinationOrdered By: Sheyla Ortega on 07-07-2025 MCV (RBC) [Entitic vol] 85.2 fL 80-94 [facility] Mean corpuscular hemoglobin (MCH) determinationOrdered By: Sheyla Ortega on 07-07-2025 MCH (RBC) [Entitic mass] 29.1 pg 27.0-32.0 [facility] Mean corpuscular hemoglobin concentration (MCHC) determinationOrdered By: Sheyla Ortega 07-07-2025 MCHC (RBC) [Mass/Vol] 34.1 g/dL 32-36 [facility] Mean platelet volume determi nationOrdered By: Sheyla Ortega 07-07-2025 Platelet mean volume (Bld) [Entitic vol] 10.6 fL 6.2-12.0 [facility] Monocyte percentageOrdered B y: Sheyla Ortega on 07-07-2025 Monocytes/100 WBC (Bld) 12.7 % High 0-10 [facility] Neutrophil percentageOrdered By: Sheyla Ortega on 07-07-2025 Neutrophils/100 WBC (Bld) 61.2 % 47-70 [facility] Nucleated red blood cell per centageOrdered By: Sheyla Ortega on 07-07-2025 Nucleated RBC/100 WBC (Bld) [Ratio] 0 % 0-5 [facility] Platelet countOrdered By: Na na Shannon on 07-07-2025 Platelets (Bld) [#/Vol] 212 10*3/uL 150-450 [facility] Potassium measurement (mass/ volume)Ordered By: Sheyla Ortega on 07-07-2025 Potassium (Unsp spec) [Mass/Vol] 3.4 mmol/L 3.3-5.1 [facility] RBC Auto (Bld) [#/Vol]Ordere d By: Sheyla Ortega on 07-07-2025 RBC (Bld) [#/Vol] 4.61 10*6/uL 4.6-6.2 [facility] Serum creatinine measurement (mass/volume)Ordered By: Sheyla Ortega on 07-07-2025 Creatinine [Mass/Vol] 1.06 mg/dL 0.70-1.20 [facility] Serum glucose measurement (m ass/volume)Ordered By: Sheyla Ortega on 07-07-2025 Glucose [Mass/Vol] 207 mg/dL High 70-99 [facility] Serum or plasma calcium jessica urement (mass/volume)Ordered By: Sheyla Ortega on 07-07-2025 Calcium [Mass/Vol] 9.1 mg/dL 7.6-11.0 [facility] Serum or plasma urea nitroge n measurement (mass/volume)Ordered By: Sheyla Ortega on 07-07-2025 Urea nitrogen [Mass/Vol] 14 mg/dL 4-19 [facility] Sodium levelOrdered By: Sheyla Ortega on 07-07-2025 Sodium [Moles/Vol] 139 mmol/L 133-145 [facility] White blood cell (WBC) count Ordered By: Shelya Ortega on 07-07-2025 WBC (Bld) [#/Vol] 10.2 10*3/uL 4.4-11.0 [facility] 12 Lead EKGon 07-06-2025 12 Lead EKG Normal [facility] ACT Activated Clotting Timeo n 07-06-2025 ACTk CLOT TIME 285 sec High 74-137 [facility] Comment on above: Performed By: #### L 9100.0100 ####[facility] [address] [facility] [address] ACTk CLOT TIME 181 sec High 74-137 [facility] Comment on above: Performed By: #### L 9100.0100 ####[facility] [address] [place], [address] Alcohol, Blood (Medical)-Ser umon 07-06-2025 SERUM ETOH < 10.1 Normal <=10.0 [facility] Comment on above: Result Comment: This test is for medical purposes only. The legaldefinition of intoxication varies according to local law. Performed By: #### L 3300.0960, L501.9100, L300.8000, L501.9985, L505.5000 ####[facility] [address] [place], [place], [address] Amphetamine detection with 1 000 ng/mL as cutoffOrdered By: Mitchell Lucero on 07-06-2025 Amphetamines Screen method >1000 ng/mL Ql (U) Negative < 200 ng/mL [facility] Bedside Glucoseon 07-06-2025 FINGERSTICK GLU 273 mg/dL High 74-106 [facility] Comment on above: Result Comment: CARLOS GEMENT OF PATIENT CARE PER NURSING PROTOCOL Performed By: #### L 501.080 ####[facility] [address] [place], [address] FINGERSTICK GLU 263 mg/dL High 74-106 [facility] Comment on above: Result Comment: CARLOS GEMENT OF PATIENT CARE PER NURSING PROTOCOL Performed By: #### L 501.080 ####[facility] [address] [place], [address] FINGERSTICK GLU 264 mg/dL High 74-106 [facility] Comment on above: Result Comment: CARLOS GEMENT OF PATIENT CARE PER NURSING PROTOCOL Performed By: #### L 501.080 ####[facility] [address] [place], [address] FINGERSTICK GLU 299 mg/dL High 74-106 [facility] Comment on above: Result Comment: CARLOS GEMENT OF PATIENT CARE PER NURSING PROTOCOL Performed By: #### L 501.080 ####[facility] [address] [place], [address] Beta-Hydroxbytyrateon 2024 BETA-HYDROXYBUT 0.1 mmol/L Normal 0.0-0.3 [facility] Comment on above: Performed By: #### L 501.9520, L503.7505, L501.6901 ####[facility] [address] [place], [address] Beta-hydroxybutyrateOrdered By: Mitchell Lucero on 07-06-2025 Beta hydroxybutyrate [Mass/Vol] 0.1 mmol/L 0.0-0.3 [facility] Bilirubin Test strip Ql (U)O rdered By: Mitchell Lucero on 07-06-2025 Bilirubin Ql (U) Negative Negative [facility] Bilirubin, totalOrdered By: Mitchell Lucero on 07-06-2025 Bilirubin [Mass/Vol] 0.46 mg/dL 0.00-1.[address] [facility] Blood manual differential co mment interpretation (narrative result)Ordered By: Mitchell Lucero on 07-06-2025 Manual differential comment Driss (Bld) [Interp] SCANNED [facility] Blood polychromasia detectio n by light microscopyOrdered By: Mitchell Lucero on 07-06-2025 Polychromasia LM Ql (Bld) 1+ [facility] CBC W/Diff, Automatedon 06-19 Anisocytosis Ql (Bld) 1+ Normal [facility] Comment on above: Performed By: #### L 500.4050, L500.4100, L501.2300, L100.0100 ####[facility] [address] [place], [address] OVALOCYTE 1+ Normal [facility] Comment on above: Performed By: #### L 500.4050, L500.4100, L501.2300, L100.0100 ####[facility] [address] [place], [address] PLT EST ADEQUATE Normal ADEQ [facility] Comment on above: Performed By: #### L 500.4050, L500.4100, L501.2300, L100.0100 ####[facility] [address] [place], [address] POLYCHROMASIA 1+ Normal [facility] Comment on above: Performed By: #### L 500.4050, L500.4100, L501.2300, L100.0100 ####[facility] [address] [place], [address] SMEAR COMMENT SCANNED Normal [facility] Comment on above: Performed By: #### L 500.4050, L500.4100, L501.2300, L100.0100 ####[facility] [address] [place], [address] CTA Head AND Neck W/ Contras ton 07-06-2025 CTA Head AND Neck W/ Contrast Normal [facility] CVS/PCIREPORTon 07-06-2025 CVS/PCIREPORT Normal [facility] Calculated very low density lipoprotein (VLDL) cholesterol measurementOrdered By: Mitchell Lucero on 07-06-2025 Calculated very low density lipoprotein (VLDL) cholesterol measurement 18 mg/dL 5-40 [facility] Cardiac catheterization repo rtOrdered By: Hilda Garrison on 07-06-2025 Cardiac catheterization study [facility] Cardiovascular Services [address] [place] [address] MR#: [id number] Acct: [id number] Name: LATONYA ELDER Rep #: [id number] : 1970 54 From: Hilda Garrison MD Primary Care: Dr. Beka Bowie MD atus: ADM SINDY Referring Dr: Randall: Renee Barragan PCI Cardiac Cath Report PCI Report: Cardiac Catheterization Laboratory Patient: Last name, first name [middle initial /name] MRN: xxxxxxxxx : xx/xx/xxxx Age: xx Gender: M/F Procedure Date: xx Cath Attending: xxxxxxxxx xxxxxxxxx Cardiac Catheterization Procedure Report Summary Primary Indication Chest pain (786.50) History: A 54 year old man with hyperlipidemia, hypertension, CAD with multiple PCI's in the past, heart failure with reduced ejection fraction. Procedures Left heart cath, selective angiography of the right and left coronaryarteries. IVUS of the LAD and the left main. PCI to the mid LAD with a 3.5 x 26 Linn WAN, postdilated with a 4.0 NC balloon. Vascular Access Location: right radial artery, right femoral artery Disposition (end of case): radial ? TR band Catheters Diagnostic: Pindall catheter, EBU 3.5 catheter. Narrative: Patient correctly cardiac Service Assistant and draped in usual sterile fashion. Using lidocaine for local anesthesia of the region of the right radial artery was anesthetized and we obtained access and a 6 [place]an slender sheath was inserted. Radial cocktail of 200 mcg nitroglycerin and 5000 units of heparin was given. 5French Pindall cath was advanced over wire into the left ventricle LVEDP was obtained pullback was performed this catheter was then seated in the left coronary for selective angiography which was then performed in multiple views, this catheter was then taken and placed in the right coronary artery, selective angiography was performed with multiple views The decision was made to proceed with PCI. ACT's were checked to ensure therapeutic ACT is maintained throughout the case, heparin bolus was given as needed. A run-through wire was advanced into the LAD. A 2.5 x 20 NC balloon was advanced and serial inflations up to 16 shira then performed. This balloon was then removed intact. We then advanced an IVUS catheter and pullback was performed. 3.0 x 22 NC balloon was advanced and serial ablations were performed up to 16 shira. This balloon was then removed A 3.0 x 15 Starkweather balloon was advanced, inflations up to 16 shira were performed. This was removed intact. A 3.5 x 26 Medtronic WAN was advanced and deployed with inflations up to 22 shira. A 4.0 x 12 NC balloon was advanced and in the distal portion of the LAD overlapping inflations up to [address] way up to 14 shira in the proximal portion of the stent. IVUS catheter was advanced and pullback was then performed showing good stent apposition and expansion, no perforations or dissections. IVUS catheter was removed Final angiography showed good stent expansion, apposition, no perforations or dissections, ESTEPHANIA-3 flow throughout the vessel. Guide catheter was removed over wire Sheath was removed TR band was placed with adequate hemostasis. Findings: Hemodynamics (mm Hg) Aorta: 134/78, mean 92 LV: 134/4, EDP 18 Coronary arteries Left Main: Mild luminal irregularities, 10% stenosis LAD: Large caliber vessel, courses along anterior interventricular groove. Givesrise to large diagonal branch. There is a 20% stenosis of the proximal LAD, followed by a patent stent, then a 70-80% stenosis, and another patent stent. Distal LAD with luminal irregularities. The diagonal branch has a 60-70% proximal stenosis, followed by a patent stent. LCX: Moderate caliber vessel gives rise to a large OM, terminates in AV groove as aa branching PL. The circumflex has a patent stent, and just distal to this ia 60-70% eccentric stenosis. RCA: large caliber vessel that arises from the right cusp. Gives rise to large marginal branch, large PL system and PDA. There are luminal irregularities seen throughout the vessel. There is a patent stent in the mid RCA. Conclusions 1. NSTEMI Culprit lesion 80% Denovo stenosis status post IVUS guided PCI of the mid LAD with 3.5 x 26 Linn WAN, postdilated with a 4.0 NC balloon. 2. Aggressive risk factor modification including smoking cessation, aggressive lipid-lowering therapy, aggressive blood pressure control 3. Uptitration of GDMT as tolerated 4. Referral to cardiac rehab 5. Residual stenosis of the diagonal branch and left circumflex to be considered for staged PCI if patient remains symptomatic. Charges/Coding Multi Select Codes Respiratory/Cardiovasc ular Resp/Cardiovascular CPT Codes: [address] CAT[address] IN ARTERY and Other Procedure See Report 07/06/25 1358 Date _ Hilda Garrison MD CC: Dr. Beka Bowie MD; Dr. Sheyla Ortega MD ~ Date Dictated: 07/06/25 1340 Date Transcribed: 07/06/251339 Public Health Dietitian: [place] Signed [facility] Cardiac rehabilitation repor tOrdered By: Edmundo Villatoro on 07-06-2025 Study report [facility] Cardiac Rehab [address] [place] [address] CR: Phase I Assessment MR#: [id number] Acct: [id number] Name: LATONYA ELDER Rep #:[id number] : 1970 54 From: Edmundo Villatoro PCP: Dr. Beka Bowie MD DOS: Patient Communication Patient Information Former Patient:: Phase I PHII Cardiac Rehab Discussed with Patient:: Yes Guide to Cardiac Rehab Given to Patient:: Yes Cardiac Rehab Facility Choice List Given to Patient:: Yes Communication to Cardiac Rehab Choice Program [facility] CR PHII:: Communication Given to CR Community Case Manager:: Hilda Garrison Refer Phase II Cardiac Rehab:: Yes Sessions:: 36 sessions - 3 days/wk, 12 weeks Cardiac Rehabilitation Info Program Information Cardiac Rehabilitation Program Information: Cardiac Rehab The cardiac rehab team at [facility] consists of highly skilled exercise physiologists, nurses, respiratory therapists and physicians working together with you. Our purpose is to help you have a full recovery and achieve the goals you set for yourself. Over the years many of our patients have returned to activities they assumed they would never do again! We can help restore your confidence and motivation to make lifestyle changes that can have a significant impact on your health and quality of life! We can help answer questions and concerns you may have about exercise, lifestyle, medications, diet, stress and anxiety which are common following a hospitalization. WE monitor ECG and vital signs during exercise and discuss your progress with you and report [facility] physician(s). Cardiac Rehab is proven to help reduce readmissions, improve functional capacityand lower recurrence of problems with your heart. Our Cardiac Rehab program is Certified by the [place] [employer] Cardio-Vascular and Pulmonary Rehabilitation (AACVPR) and Accredited by the [employer] through our [facility]. You can contact us at . We invite you to call us with your questions or to get started in our program. If you have other questions or concerns be sure to ask your physician/provider during your follow-up visit. WE look forward to seeing you! 07/06/25 1500 Date Edmundo W Irving Outcome assessment reviewed. Exercise plan approved as documented. Treatment plan and goals support patient needs/abilities. Continue with current plan. I certify the patient demonstrates improvement and remains willing and capable of participation. the patient continues to benefit from cardiac rehab services/training. The patient may continue at current intensity, endurance andmodality and progress per protocol. Cosigner Signature: Date CC: ~ Signed [facility] Cardiovascular stress test r eportOrdered By: Hilda Garrison on 07-06-[address] [facility] Cardiovascular Services [address] [place] [address] MR#: [id number] Acct: [id number] Name: LATONYA ELDER Rep #: [id number] : 1970 54 From: Hilda Garrison MD Primary Care: Dr. Beka Bowie MD atus: ADM SINDY Referring Dr: Eneida Barragan Stress Test Report Exercise myocardial perfusion stress test. 54-year-old with a history of CAD s/p CABG and multiple PCIs, HFrEF LVEF 25%. Stress protocol: Resting EKG demonstrates sinus rhythm, possible septal infarct with a rate of 78bpm resting blood pressure is 162/104 mmHg. The patient exercised according to the regular Ricci protocol for a total duration of 3:15 attaining a maximum heart rate of 150 bpm which was 89% of maximum predicted heart rate; the maximumworkload was 5.20 metabolic equivalents. At rest there were no ST or T wave changes noted to suggest ischemia and at peak exercise upsloping ST changes onlywere noted which did not meet the criteria for ischemia. The test was terminated due to the target heart rate being achieved/fatigue, dyspnea, and chest pain. The peak blood pressure was 190/100 mmHg. Rate-pressure product was 28,500. Myocardial perfusion protocol. [13.9 ] mCi of technetium 99m sestamibi was injected at rest. The patient exercised according to regular Ricci protocol for total duration of 3:15 and at peak exercise 40.7 mCi of technetium 99m sestamibi was injected stress images were obtained stress and rest images were reconstructed in comparing the short axis vertical long and horizontal long axis. Gated images were also obtained. Perfusion SPECT analysis: Review of the stress images demonstrate abnormal uptake of tracer.. The restingimages demonstrate a severe intensity defect in the apical myocardium. Stress images demonstrate a medium sized, aoqjfbtk-sw-wrgtpa defect in the mid-distal anterior wall, as well as apical myocardium Gated SPECT analysis: The gated ejection fraction is 39%. Conclusion: Abnormal exercise myocardial perfusion stress test with evidence of prior infarct, and new perfusion defect not seen on prior stress test. Suggestive of ischemia in the LAD territory. Charges/Procedures Procedures Add on/Second Study CF Procedures 9xxxx Addon/2nd Proc: [id number] Cardiovascular stress test 07/06/25 1142 Date _ Hilda Garrison MD CC: Dr. Mitchell Deras DO; Dr. Beka Bowie MD; Dr. Brennon Mckeon DO; Dr. Sheyla Ortega MD ~ Date Dictated: 07/06/251116 Date Transcribed: 07/06/251116 Public Health Dietitian: [place] Signed [facility] Comprehensive Metabolic Prof ilon 07-06-2025 Albumin [Mass/Vol] 4.1 g/dL Normal 3.5-5.0 [facility] Comment on above: Performed By: #### L 500.4050, L500.4100, L501.2300, L100.0100 ####[facility] [address] [place], [address] Albumin/Globulin [Mass ratio] 1.2 {ratio} Normal 0.9-2.4 [facility] Comment on above: Performed By: #### L 500.4050, L500.4100, L501.2300, L100.0100 ####[facility] [address] [place], [address] ALK PHOS 139 U/L High 40-129 [facility] Comment on above: Performed By: #### L 500.4050, L500.4100, L501.2300, L100.0100 ####[facility] [address] [place], [address] ALT [Catalytic activity/Vol] 16 U/L Normal <=46 [facility] Comment on above: Performed By: #### L 500.4050, L500.4100, L501.2300, L100.0100 ####[facility] [address] [place], [address] AST [Catalytic activity/Vol] 26 U/L Normal <=37 [facility] Comment on above: Performed By: #### L 500.4050, L500.4100, L501.2300, L100.0100 ####[facility] [address] [place], [address] Bilirubin [Mass/Vol] 0.46 mg/dL Normal 0.00-1.[address] [facility] Comment on above: Performed By: #### L 500.4050, L500.4100, L501.2300, L100.0100 ####[facility] [address] [place], [address] BUN/CRE 12.3 RATIO Normal 10-20 [facility] Comment on above: Performed By: #### L 500.4050, L500.4100, L501.2300, L100.0100 ####[facility] [address] [place], [address] Calcium [Mass/Vol] 9.5 mg/dL Normal 7.6-11.0 [facility] Comment on above: Performed By: #### L 500.4050, L500.4100, L501.2300, L100.0100 ####[facility] [address] [place], [address] Chloride [Moles/Vol] 99 mmol/L Normal 98-[address] [facility] Comment on above: Performed By: #### L 500.4050, L500.4100, L501.2300, L100.0100 ####[facility] [address] [place], [address] CO2 [Moles/Vol] 26.0 mmol/L Normal 21.0-32.0 [facility] Comment on above: Performed By: #### L 500.4050, L500.4100, L501.2300, L100.0100 ####[facility] [address] [place], [address] Creatinine [Mass/Vol] 0.90 mg/dL Normal 0.70-1.20 [facility] Comment on above: Performed By: #### L 500.4050, L500.4100, L501.2300, L100.0100 ####[facility] [address] [place], [address] ECRCL 110.04 ml/min Normal 50-250 [facility] Comment on above: Performed By: #### L 500.4050, L500.4100, L501.2300, L100.0100 ####[facility] [address] [place], [address] GAP 13 Normal 5-15 [facility] Comment on above: Performed By: #### L 500.4050, L500.4100, L501.2300, L100.0100 ####[facility] [address] [place], [address] GFR/1.73 sq M.predicted among non-blacks MDRD (S/P/Bld) [Vol rate/Area] 102 mL/min/{1.73_m2} Normal >60 [facility] Comment on above: Result Comment: mL/m in/1.73m2 CKD-EPI Creatinine Equation (2020) Performed By: #### L 500.4050, L500.4100, L501.2300, L100.0100 ####[facility] [address] [place], [address] Globulin (S) [Mass/Vol] 3.3 g/dL Normal 2.2-4.2 [facility] Comment on above: Performed By: #### L 500.4050, L500.4100, L501.2300, L100.0100 ####[facility] [address] [place], [address] Glucose [Mass/Vol] 297 mg/dL High 70-99 [facility] Comment on above: Performed By: #### L 500.4050, L500.4100, L501.2300, L100.0100 ####[facility] [address] [place], [address] Potassium [Moles/Vol] 3.2 mmol/L Low 3.3-5.1 [facility] Comment on above: Performed By: #### L 500.4050, L500.4100, L501.2300, L100.0100 ####[facility] [address] [place], [address] Sodium [Moles/Vol] 139 mmol/L Normal 133-145 [facility] Comment on above: Performed By: #### L 500.4050, L500.4100, L501.2300, L100.0100 ####[facility] [address] [place], [address] T PROT 7.5 g/dL Normal 5.9-8.4 [facility] Comment on above: Performed By: #### L 500.4050, L500.4100, L501.2300, L100.0100 ####[facility] [address] [place], [address] Urea nitrogen [Mass/Vol] 11 mg/dL Normal 4-19 [facility] Comment on above: Performed By: #### L 500.4050, L500.4100, L501.2300, L100.0100 ####[facility] [address] [place], [address] Consultation - Cardiologyon 07-06-2025 Consultation - Cardiology Normal [facility] D-Dimer Quantitative (DVT/PE )on 07-06-2025 D-DIMER QUANT 0.60 FEU/ug/m Invalid Interpretation Code 0.27-0.49 [facility] Comment on above: Result Comment: D-Di olvin ELEVATED (>0.49): Additional studies and clinicalassessments are indicated to conclude diagnosis of:Deep Vein Thrombosis (DVT) or Pulmonary Embolism (PE)CRITICAL VALUE CALLED TO [facility]ALTON CASE07/06/25 0143 Sally Srivastava.RESULTS READ BACK BY SAME. Performed By: #### L 3300.0960, L501.9100, L300.8000, L501.9985, L505.5000 ####[facility] [address] [place], [address] [facility] deOrdered By: Sheyla Ortega on 07-06-2025 Glucose [Mass/Vol] 139 mg/dL High 74-106 [facility] Comment on above: MANAGEMENT OF PATIEN T CARE PER NURSING PROTOCOL Hemoglobin A1con 07-06-2025 HbA1c (Bld) [Mass fraction] 11.5 % High <=5.6 [facility] Comment on above: Result Comment: Norm al < 5.7 % Prediabetic 5.7 - 6.4 % Diabetic >or= 6.5 % Please note range changes. Performed By: #### L 3300.0960, L501.9100, L300.8000, L501.9985, L505.5000 ####[facility] [address] [place], [address] Ketones Test strip Ql (U)Ord ered By: Mitchell Lucero on 07-06-2025 Ketones Ql (U) Negative Negative [facility] LDL calc ser/plasOrdered By: Mitchell Lucero on 07-06-2025 Cholesterol in LDL [Mass/Vol] 131 mg/dL [facility] Comment on above: Dvgbdojdha=850-052 m g/dL & Higher Nqog=199 mg/dL or greaterFriedwald Equation for LDL-C Laboratory - Chemistry and C hemistry - challengeOrdered By: Mitchell Lucero on 07-06-2025 AST [Catalytic activity/Vol] 26 U/L <38 [facility] Laboratory - Hematology and Cell countsOrdered By: Mitchell Lucero on 07-06-2025 Anisocytosis Ql (Bld) 1+ [facility] Lipid Profileon 07-06-2025 CHOL:HDL 5.03 Normal [facility] Comment on above: Performed By: #### L 500.4050, L500.4100, L501.2300, L100.0100 ####[facility] [address] [place], [address] Cholesterol [Mass/Vol] 186 mg/dL Normal <=200 [facility] Comment on above: Result Comment: Chol esterol level, Desirable <200 mg/dLBorderline high cholesterol 200-239 mg/dLHigh cholesterol >=240 mg/dLRecommendations of the NCEP Adult Treatment Panel for thefollowing risk-cutoff thresholds for the [place] Americanpulation. Performed By: #### L 500.4050, L500.4100, L501.2300, L100.0100 ####[facility] [address] [place], [address] Cholesterol in HDL [Mass/Vol] 37 mg/dL Low [facility] Comment on above: Result Comment: Veronica onal Cholesterol Education Program (NCEP) guidelines:<40 mg/dL: Low HDL-cholesterol (major risk factor for CHD)>= 60 mg/dL: High HDL-cholesterol (negative risk factor forCHD)HDL-cholesterol is affected by a number of factors, e.g.smoking, exercise, hormones, sex and age. Performed By: #### L 500.4050, L500.4100, L501.2300, L100.0100 ####[facility] [address] [place], [address] Cholesterol in LDL [Mass/Vol] 131 mg/dL Normal [facility] Comment on above: Result Comment: Bord ntafja=141-993 mg/dL Higher Ifmm=183 mg/dL or greaterFriedwald Equation for LDL-C Performed By: #### L 500.4050, L500.4100, L501.2300, L100.0100 ####[facility] [address] [place], [address] Cholesterol in VLDL [Mass/Vol] 18 mg/dL Normal 5-40 [facility] Comment on above: Performed By: #### L 500.4050, L500.4100, L501.2300, L100.0100 ####[facility] [address] [place], [address] Triglyceride [Mass/Vol] 92 mg/dL Normal [facility] Comment on above: Result Comment: The drugs N-Acetylcysteine and Metamizole may falselydepress this assay.Normal range: <150 mg/dLBorderline High: 150-199 mg/dLHigh: 200-499 mg/dLVery High: >500 mg/dL Performed By: #### L 500.4050, L500.4100, L501.2300, L100.0100 ####[facility] [address] [place], [address] Magnesiumon 07-06-2025 Magnesium [Mass/Vol] 1.9 mg/dL Normal 1.5-2.[address] [facility] Comment on above: Performed By: #### L 501.5200 ####[facility] [address] [place], [place], [address] Microscopic analysis of urin e for red blood cells (RBC)Ordered By: Mitchell Lucero on 07-06-2025 Microscopic analysis of urine for red blood cells (RBC) 0-5 SEEN /hpf 0-5 [facility] Mucus LM Ql (Urine sed)Order ed By: Mitchell Lucero on 07-06-2025 Mucus Ql (Urine sed) 0 SEEN /hpf [facility] Natriuretic peptide.B prohor betina N-Terminal [Mass/volume] in Serum or PlasmaOrdered By: Mitchell Lucero on 07-06-2025 Natriuretic peptide.B prohormone N-Terminal [Mass/Vol] 201 pg/mL <900 [facility] Comment on above: Heart Failure Unlike ly: < 300 pg/mLHeart Failure Likely< 50 Years: > 450 pg/mL50-75 Years: > 900 pg/mL>75 Years: > 1800 pg/mL Nitrite Test strip Ql (U)Ord ered By: Mitchell Lucero on 07-06-2025 Nitrite Ql (U) Negative Negative [facility] No Panel InformationOrdered By: Mitchell Lucero on 07-06-2025 Urine Buprenorphine Qualitative Negative < 200 ng/mL [facility] Urine Oxycodone Screen Negative < 100 ng/mL [facility] Ovalocyte detectionOrdered B y: Mitchell Lucero on 07-06-2025 Ovalocytes LM Ql (Bld) 1+ [facility] Phosphoruson 07-06-2025 Phosphate [Mass/Vol] 2.9 mg/dL Normal 2.7-4.[address] [facility] Comment on above: Performed By: #### L 500.4050, L500.4100, L501.2300, L100.0100 ####[facility] [address] [place], [place], [address] Platelet estimateOrdered By: Mitchell Lucero on 07-06-2025 Platelets LM Ql (Bld) ADEQUATE ADEQ [facility] Pro- Brain NATRIURETIC PEPTI Willow 07-06-2025 Natriuretic peptide B (Bld) [Mass/Vol] 201 pg/mL Normal <=900 [facility] Comment on above: Result Comment: Hear t Failure Unlikely: < 300 pg/mLHeart Failure Likely< 50 Years: > 450 pg/mL50-75 Years: > 900 pg/mL>75 Years: > 1800 pg/mL Performed By: #### L 501.9520, L503.7505, L501.6901 ####[facility] [address] [facility] [address] [place], [place], [address] Protein Test strip Ql (U)Ord ered By: Mitchell Lucero on 07-06-2025 Protein Ql (U) 30 mg/dl High Negative [facility] Quantitative urine opiates m easurementOrdered By: Mitchell Lucero on 07-06-2025 Opiates Ql (U) Positive < 300 ng/mL [facility] Comment on above: If confirmation test ing is needed, a separate order will be required to send out testing to the reference laboratory. Screening total cholesterol/ high density lipoprotein (HDL) cholesterol ratioOrdered By: Mitchell Lucero on 07-06-2025 Cholesterol.total/Tami sterol in HDL [Mass ratio] 5.03 {ratio} [facility] Screening urine fentanyl adria surementOrdered By: Mitchell Lucero on 07-06-2025 fentaNYL Screen Ql (U) Negative [facility] Serum globulin measurementOr dered By: Mitchell Lucero on 07-06-2025 Globulin (S) [Mass/Vol] 3.3 g/dL 2.2-4.2 [facility] Serum or plasma alanine buchanan otransferase (ALT) measurementOrdered By: Mitchell Lucero on 07-06-2025 ALT [Catalytic activity/Vol] 16 U/L <47 [facility] Serum or plasma albumin jessica urement (mass/volume)Ordered By: Mitchell Lucero on 07-06-2025 Albumin [Mass/Vol] 4.1 g/dL 3.5-5.0 [facility] Serum or plasma albumin/glob ulin mass ratioOrdered By: Mitchell Lucero on 07-06-2025 Albumin/Globulin [Mass ratio] 1.2 {ratio} 0.9-2.4 [facility] Serum or plasma alkaline wendy sphatase measurementOrdered By: Mitchell Lucero on 07-06-2025 ALP [Catalytic activity/Vol] 139 U/L High 40-129 [facility] Serum or plasma cholesterol in HDL measurement (mass/volume)Ordered By: Mitchell Lucero on 07-06-2025 Cholesterol in HDL [Mass/Vol] 37 mg/dL Low >40 [facility] Comment on above: National Cholesterol Education Program (NCEP) guidelines:<40 mg/dL: Low HDL-cholesterol (major risk factor for CHD)>= 60 mg/dL: High HDL-cholesterol (negative risk factor for CHD)HDL-cholesterol is affected by a number of factors, e.g. smoking, exercise, hormones, sex and age. Serum or plasma cholesterol measurement (mass/volume)Ordered By: Mitchell Lucero on 07-06-2025 Cholesterol [Mass/Vol] 186 mg/dL <201 [facility] Comment on above: Cholesterol level, D esirable <200 mg/dLBorderline high cholesterol 200-239 mg/dLHigh cholesterol >=240 mg/dLRecommendations of the NCEP Adult Treatment Panel for the following risk-cutoff thresholds for the [place] population. Serum or plasma ethanol jessica urement (mass/volume)Ordered By: Mitchell Lucero on 07-06-2025 Ethanol [Mass/Vol] mg/dL <10.1 [facility] Comment on above: This test is for med ical purposes only. The legal definition of intoxication varies according to local law. Squamous epithelial cells de tection in urine sediment by light microscopyOrdered By: Mitchell Lucero on 07-06-2025 Epithelial cells.squamous LM Ql (Urine sed) 0 SEEN /hpf 0-5 [facility] Stress Reporton 07-06-2025 Stress Report Normal [facility] TSH DL <= 0.005 mIU/L QnOrde red By: Mitchell Lucero on 07-06-2025 TSH Qn 3.580 uIU/mL 0.300-4.200 [facility] Thyroid Stim Hormone (TSH)on 07-06-2025 TSH 3.580 uIU/mL Normal 0.300-4.200 [facility] Comment on above: Performed By: #### L 501.9520, L503.7505, L501.6901 ####[facility] [address] [place], [place], [address] Total proteinOrdered By: Fabien Lucero on 07-06-2025 Protein [Mass/Vol] 7.5 g/dL 5.9-8.4 [facility] Triglycerides measurementOrd ered By: Mitchell Lucero on 07-06-2025 Triglyceride [Mass/Vol] 92 mg/dL <199 [facility] Comment on above: The drugs N-Acetylcy steine and Metamizole may falsely depress this assay. Normal range: <150 mg/dLBorderline High: 150-199 mg/dLHigh: 200-499 mg/dLVery High: >500 mg/dL Troponin T HS 4 HRon 025 Trop T High Sen 60 ng/L Invalid Interpretation Code <=22 [facility] Comment on above: Result Comment: Crit ical Result(s) Called at 0106: by: HAYES JAQUEZ??Results read back by same. Performed By: #### L 499.0043 ####[facility] [address] [place], [place], [address] Troponin T.cardiac [Mass/vol ume] in Serum or Plasma by High sensitivity methodOrdered By: Brennon Mckeon on 07-06-2025 Troponin T.cardiac High sensitivity method [Mass/Vol] 60 ng/L High <22 [facility] Comment on above: Critical Result(s) C alled at 0106: by: HAYES KRISHNAMURTHY2 Results read back by same. Urinalysis, Completeon 07-06 BACTERIA RARE Normal None Seen [facility] Comment on above: Order Comment: CLEAN CATCH Performed By: #### L 400.0001 ####[facility] [address] [place], [address] RBC 0-5 SEEN Normal 0-5 [facility] Comment on above: Order Comment: CLEAN CATCH Performed By: #### L 400.0001 ####[facility] [address] [place], [address] EPI,SQUAMOUS 0 SEEN Normal 0-5 [facility] Comment on above: Order Comment: CLEAN CATCH Performed By: #### L 400.0001 ####[facility] [address] [place], [address] Mucus Ql (Urine sed) 0 SEEN Normal [facility] Comment on above: Order Comment: CLEAN CATCH Performed By: #### L 400.0001 ####[facility] [address] [place], [address] WBC 0 SEEN Normal 0-5 [facility] Comment on above: Order Comment: CLEAN CATCH Performed By: #### L 400.0001 ####[facility] [address] [place], [address] Urine Drug Screen (VISTA)on 07-06-2025 AMPHETAMINES Negative Normal <1000 ng/mL [facility] Comment on above: Performed By: #### L 3300.0960, L501.9100, L300.8000, L501.9985, L505.5000 ####[facility] [address] [place] [address] BARBITIURATES Negative Normal < 200 ng/mL [facility] Comment on above: Performed By: #### L 3300.0960, L501.9100, L300.8000, L501.9985, L505.5000 ####[facility] [address] [place], [address] BENZODIAZIPINE Negative Normal < 200 ng/mL [facility] Comment on above: Performed By: #### L 3300.0960, L501.9100, L300.8000, L501.9985, L505.5000 ####[facility] [address] [place], [address] BUP Ur Drug Scr Negative Normal < 200 ng/mL [facility] Comment on above: Performed By: #### L 3300.0960, L501.9100, L300.8000, L501.9985, L505.5000 ####[facility] [address] [place], [address] COCAINE Negative Normal < 300 ng/mL [facility] Comment on above: Performed By: #### L 3300.0960, L501.9100, L300.8000, L501.9985, L505.5000 ####[facility] [address] [place], [address] Fentanyl Negative Normal [facility] Comment on above: Performed By: #### L 3300.0960, L501.9100, L300.8000, L501.9985, L505.5000 ####[facility] [address] [place], [place], [phone] METHADONE Negative Normal < 300 ng/mL [facility] Comment on above: Performed By: #### L 3300.0960, L501.9100, L300.8000, L501.9985, L505.5000 ####[facility] [address] [place], [place], [phone] OPIATES Positive Normal < 300 ng/mL [facility] Comment on above: Result Comment: If c onfirmation testing is needed, a separate order will berequired to send out testing to the reference laboratory. Performed By: #### L 3300.0960, L501.9100, L300.8000, L501.9985, L505.5000 ####[facility] [address] [place], [address] OXYCODONE Negative Normal < 100 ng/mL [facility] Comment on above: Performed By: #### L 3300.0960, L501.9100, L300.8000, L501.9985, L505.5000 ####[facility] [address] [place], [place], [address] PCP Negative Normal < 25 ng/mL [facility] Comment on above: Performed By: #### L 3300.0960, L501.9100, L300.8000, L501.9985, L505.5000 ####[facility] [address] [place], [address] THC Positive Normal < 50 ng/mL [facility] Comment on above: Result Comment: If c onfirmation testing is needed, a separate order will berequired to send out testing to the reference laboratory. Performed By: #### L 3300.0960, L501.9100, L300.8000, L501.9985, L505.5000 ####[facility] [address] [place], [place], [address] Urine benzodiazepine levelOr dered By: Mitchell Lucero on 07-06-2025 Benzodiazepines Ql (U) Negative < 200 ng/mL W [facility] Urine clarityOrdered By: Fabien Lucero on 07-06-2025 Clarity (U) Clear Clear [facility] Urine cocaine levelOrdered B y: Mitchell Lucero on 07-06-2025 Cocaine Ql (U) Negative < 300 ng/mL [facility] Urine color determinationOrd ered By: Mitchell Lucero on 07-06-2025 Color (U) Yellow Yellow [facility] Urine pmhhc-4-jkbuyzkfupmucs abinol (THC) measurementOrdered By: Mitchell Lucero on 07-06-2025 Cannabinoids Screen Ql (U) Positive < 50 ng/mL [facility] Comment on above: If confirmation test ing is needed, a separate order will be required to send out testing to the reference laboratory. Urine glucose detectionOrder ed By: Mitchell Lucero on 07-06-2025 Glucose Ql (U) 1000 mg/dl High Normal [facility] Urine leukocyte esterase det ection by dipstickOrdered By: Mitchell Lucero on 07-06-2025 Leukocyte esterase Test strip Ql (U) Negative Negative [facility] Urine pHOrdered By: Mitchell mcgrath on 07-06-2025 pH (U) 7.0 [pH] 5.0 - 8.0 [facility] Urine phencyclidine (PCP) de tectionOrdered By: Mitchell Lucero on 07-06-2025 Phencyclidine Ql (U) Negative < 25 ng/mL [facility] Urine sediment bacteria coun t by microscopy (number/high power field)Ordered By: Mitchell Lucero on 07-06-2025 Bacteria LM.HPF (Urine sed) [#/Area] RARE /hpf None Seen [facility] Urine specific gravity measu rementOrdered By: Mitchell Lucero on 07-06-2025 Specific gravity (U) [Rel density] 1.010 1.002-1.030 [facility] Urine urobilinogen measureme ntOrdered By: Mitchell Lucero on 07-06-2025 Urobilinogen Ql (U) Normal mg/dl Normal [facility] Venous Duplex US - Cj Extre mon 07-06-2025 Venous Duplex US - Cj Extrem Normal [facility] Venous duplex ultrasound rep ortOrdered By: Hola Williamson on 07-06-2025 US Vein [facility] [address] [place] [address] Venous Duplex US - Cj Extrem 07/06/25 1030 MR#: [id number] Acct: [id number] Name: LATONYA ELDER Rep #:[id number] : 1970 54 From: Hola Williamson MD Attending Dr: Dr. Sheyla Ortega MD Status: ADM SINDY Ordering Dr: Mitchell Deras DO Date: 07/06/25 Location: PCU Sex: M C Admitted: 07/06/25 Reason For Study Reason For Study: Elevated D Dimer RIGHT LEFT GSV is normal. GSV is normal. CFV is compressible, spontaneous, phasic, competent CFV is compressible, spontaneous, phasic, competent, and demonstrates normal augmentation. and demonstrates normal augmentation. FV is compressible, spontaneous, phasic, competent FV is compressible, spontaneous, phasic, competent and demonstrates normal augmentation. and demonstrates normal augmentation. POP V is compressible, spontaneous, phasic, competent POP V is compressible, spontaneous, phasic, competent and demonstrates normal augmentation. and demonstrates normal augmentation. T/P Trunk is compressible. T/P Trunk is compressible. PTV is compressible. PTV is compressible. RT PerV is compressible. LT PerV is compressible. Procedure This is a venous duplex using B-mode, color flow and spectral Doppler. Exam performed in department. A preliminary report was called and/or faxed to Patients RN. VL/Venous Duplex US - Cj Extrem Interpretation Summary Deep veins of the lower extremities are bilaterally patent and compressible segmentally. There is no evidence of deep vein thrombosis on either side. Valvular competence appears intact within the proximal deep venous systems bilaterally. The great saphenous veins appear bilaterally patent and compressible segmentally. Ordering Physician: Mitchell Deras Referring Physician: Beka Bowie Performed By: Lety Canchola, [place], RVT 07/06/25 1137 Date _ Hola Williamson MD CC: Dr. Mitchell Deras, DO; Dr. Beka Bowie MD; Dr. Sheyla Ortega MD ~ Date Dictated: 07/06/25 1030 Date Transcribed: 07/06/25 113 Public Health Dietitian: Signed [facility] Other Phone: White blood cell countOrdere d By: Mitchell Lucero on 07-06-2025 White blood cell count 0 SEEN /hpf 0-5 [facility] 12 Lead EKGon 07-05-2025 12 Lead EKG Normal [facility] Absolute lymphocyte countOrd ered By: Brennon Mckeon on 07-05-2025 Lymphocytes Auto (Unsp spec) [#/Vol] 4.50 10*3/uL 0.83-4.51 [facility] Absolute neutrophil countOrd ered By: Brennon Mckeon on 07-05-2025 Neutrophils (Bld) [#/Vol] 7.9 10*3/uL High 2.0-7.7 [facility] Anion gap in Serum or Plasma Ordered By: Brennon Mckeon on 07-05-2025 Anion gap [Moles/Vol] 16 mmol/L High 5-15 [facility] Automated lymphocyte count a s percentage of total leukocytesOrdered By: Brennon Mckeon on 07-05-2025 Lymphocytes/100 WBC Auto (Unsp spec) 31.6 % - [facility] BUN/creatinine ratioOrdered By: Brennon Mckeon on 07-05-2025 Urea nitrogen/Creatinine [Mass ratio] 15.6 mg/mg - [facility] Basic Metabolic Profile (BMP )on 07-05-2025 BUN/CRE 15.6 RATIO Normal - [facility] Comment on above: Performed By: #### L 500.2500, L501.4021, L100.0100 ####[facility] [address] [place], [address] Calcium [Mass/Vol] 10.0 mg/dL Normal 7.6-11.0 [facility] Comment on above: Performed By: #### L 500.2500, L501.4021, L100.0100 ####[facility] [address] [place], [address] Chloride [Moles/Vol] 101 mmol/L Normal 98-[address] [facility] Comment on above: Performed By: #### L 500.2500, L501.4021, L100.0100 ####[facility] [address] [place], [address] CO2 [Moles/Vol] 22.7 mmol/L Normal 21.0-32.0 [facility] Comment on above: Performed By: #### L 500.2500, L501.4021, L100.0100 ####[facility] [address] [place], [address] Creatinine [Mass/Vol] 0.93 mg/dL Normal 0.70-1.20 [facility] Comment on above: Performed By: #### L 500.2500, L501.4021, L100.0100 ####[facility] [address] [place], [address] ECRCL 108.20 ml/min Normal 50-250 [facility] Comment on above: Performed By: #### L 500.2500, L501.4021, L100.0100 ####[facility] [address] [place], [address] GAP 16 High 5-15 [facility] Comment on above: Performed By: #### L 500.2500, L501.4021, L100.0100 ####[facility] [address] [place], [address] GFR/1.73 sq M.predicted among non-blacks MDRD (S/P/Bld) [Vol rate/Area] 99 mL/min/{1.73_m2} Normal >60 [facility] Comment on above: Result Comment: mL/m in/1.73m2 CKD-EPI Creatinine Equation (2020) Performed By: #### L 500.2500, L501.4021, L100.0100 ####[facility] [address] [place], [address] Glucose [Mass/Vol] 315 mg/dL High 70-99 [facility] Comment on above: Performed By: #### L 500.2500, L501.4021, L100.0100 ####[facility] [address] [place], [address] Potassium [Moles/Vol] 3.5 mmol/L Normal 3.3-5.1 [facility] Comment on above: Performed By: #### L 500.2500, L501.4021, L100.0100 ####[facility] [address] [place], [address] Sodium [Moles/Vol] 139 mmol/L Normal 133-145 [facility] Comment on above: Performed By: #### L 500.2500, L501.4021, L100.0100 ####[facility] [address] [place], [address] Urea nitrogen [Mass/Vol] 14 mg/dL Normal 4-19 [facility] Comment on above: Performed By: #### L 500.2500, L501.4021, L100.0100 ####[facility] [address] [place], [address] Basophil percentageOrdered B y: Brennon Mckeon on 07-05-2025 Basophils/100 WBC (Bld) 0.6 % 0-1 [facility] CBC W/Diff, Automatedon 06-19 PLT EST ADEQUATE Normal ADEQ [facility] Comment on above: Performed By: #### L 500.2500, L501.4021, L100.0100 ####[facility] [address] [place], [address] RED CELL MORPH NORM C+C Normal NORM C C [facility] Comment on above: Performed By: #### L 500.2500, L501.4021, L100.0100 ####[facility] [address] [place], [address] Carbon dioxide, total [Moles /volume] in Central venous bloodOrdered By: Brennon Mckeon on 07-05-2025 CO2 [Moles/Vol] 22.7 mmol/L 21.0-32.0 [facility] Chest 1 View (Portable)on Chest 1 View (Portable) Normal [facility] Chloride assayOrdered By: Mayur Mckeon on 07-05-2025 Chloride [Moles/Vol] 101 mmol/L 98-[address] [facility] Emergency Department Summary on 07-05-2025 Emergency Department Summary Normal [facility] Eosinophil percentageOrdered By: Brennon Mckeon on 07-05-2025 Eosinophils/100 WBC (Bld) 1.6 % 0-5 [facility] Erythrocyte distribution wid th ratioOrdered By: Brennon Mckeon on 07-05-2025 Erythrocyte distribution width (RBC) [Ratio] 13.2 % 11.6-14.6 [facility] Erythrocyte distribution wid th standard deviationOrdered By: Brennon Mckeon on 07-05-2025 Erythrocyte distribution width (RBC) [Ratio] 40.7 fl 35.1-43.9 [facility] Erythrocyte morphology asses smentOrdered By: Brennon Mckeon on 07-05-2025 RBC morphology finding Nom (Bld) NORM C+C NORMAL NORM C&C [facility] Glomerular filtration rate ( GFR) estimation/1.73 sq m using serum, plasma, or whole bOrdered By: Brennon Mckeon on 07-05-2025 GFR/1.73 sq M.predicted among non-blacks MDRD (S/P/Bld) [Vol rate/Area] 99 mL/min/{1.73_m2} >60 [facility] Comment on above: mL/min/1.73m2 CKD-EP I Creatinine Equation (2020) H AND P Exam - [facility] 07-05-2025 H&P Exam - Hospitalist Normal [facility] Hematocrit Auto (Bld) [Volum e fraction]Ordered By: Brennon Mckeon on 07-05-2025 Hematocrit (Bld) [Volume fraction] 45.7 % 40-54 [facility] Hemoglobin A1c percentageOrd ered By: Mitchell Lucero on 07-05-2025 HbA1c (Bld) [Mass fraction] 11.5 % High <5.7 [facility] Comment on above: Normal < 5.7 % Predi abetic 5.7 - 6.4 % Diabetic >or= 6.5 % Please note range changes. Hemoglobin measurementOrdere d By: Brennon Mckeon on 07-05-2025 Hemoglobin (Bld) [Mass/Vol] 16.1 g/dL 13.0-16.5 [facility] Immature granulocytes/100 WB C Auto (Bld)Ordered By: Brennon Mckeon on 07-05-2025 Immature granulocytes/100 WBC (Bld) 0.400 % 0.0-0.9 [facility] Comment on above: IG% - Immature Granu locytes (promyelocytes, myelocytes and metamyelocytes) > 1% indicates that a LEFT SHIFT is Present. L501.4021on 07-05-2025 Trop T High Sen 18 ng/L Normal <=22 [facility] Comment on above: Performed By: #### L 500.2500, L501.4021, L100.0100 ####[facility] [address] [place], [address] MCV (mean corpuscular volume ) determinationOrdered By: Brennon Mckeon on 07-05-2025 MCV (RBC) [Entitic vol] 84.6 fL 80-94 [facility] Magnesium measurement (mass/ volume)Ordered By: Mitchell Lucero on 07-05-2025 Magnesium (Unsp spec) [Mass/Vol] 1.9 mg/dL 1.5-2.2 [facility] Mean corpuscular hemoglobin (MCH) determinationOrdered By: Brennon Mckeon on 07-05-2025 MCH (RBC) [Entitic mass] 29.8 pg 27.0-32.0 [facility] Mean corpuscular hemoglobin concentration (MCHC) determinationOrdered By: Brennon Mckeon on 07-05-2025 MCHC (RBC) [Mass/Vol] 35.2 g/dL 32-36 [facility] Mean platelet volume determi nationOrdered By: Brennon Mckeon on 07-05-2025 Platelet mean volume (Bld) [Entitic vol] 10.5 fL 6.2-12.0 [facility] Monocyte percentageOrdered B y: Brennon Mckeon on 07-05-2025 Monocytes/100 WBC (Bld) 10.1 % High 0-10 [facility] Neutrophil percentageOrdered By: Brennon Mckeon on 07-05-2025 Neutrophils/100 WBC (Bld) 55.7 % 47-70 [facility] Nucleated red blood cell per centageOrdered By: Brennon Mckeon on 07-05-2025 Nucleated RBC/100 WBC (Bld) [Ratio] 0 % 0-5 [facility] Platelet countOrdered By: Mayur Mckeon on 07-05-2025 Platelets (Bld) [#/Vol] 267 10*3/uL 150-450 [facility] Platelet estimateOrdered By: Brennon Mckeon on 07-05-2025 Platelets LM Ql (Bld) ADEQUATE ADEQ [facility] Potassium measurement (mass/ volume)Ordered By: Brennon Mckeon on 07-05-2025 Potassium (Unsp spec) [Mass/Vol] 3.5 mmol/L 3.3-5.1 [facility] RBC Auto (Bld) [#/Vol]Ordere d By: Brennon Mckeon on 07-05-2025 RBC (Bld) [#/Vol] 5.40 10*6/uL 4.6-6.2 [facility] Serum creatinine measurement (mass/volume)Ordered By: Brennon Mckeon on 07-05-2025 Creatinine [Mass/Vol] 0.93 mg/dL 0.70-1.20 [facility] Serum glucose measurement (m ass/volume)Ordered By: Brennon Mckeon on 07-05-2025 Glucose [Mass/Vol] 315 mg/dL High 70-99 [facility] Serum or plasma calcium jessica urement (mass/volume)Ordered By: Brennon Mckeon on 07-05-2025 Calcium [Mass/Vol] 10.0 mg/dL 7.6-11.0 [facility] Serum or plasma urea nitroge n measurement (mass/volume)Ordered By: Brennon Mckeon on 07-05-2025 Urea nitrogen [Mass/Vol] 14 mg/dL 4-19 [facility] Sodium levelOrdered By: Brennon Mckeon on 07-05-2025 Sodium [Moles/Vol] 139 mmol/L 133-145 [facility] Troponin T HS 2 HRon 025 Trop T High Sen 27 ng/L High <=22 [facility] Comment on above: Performed By: #### L 499.0042 ####[facility] [address] [place], [address] Troponin T.cardiac [Mass/vol ume] in Serum or Plasma by High sensitivity methodOrdered By: Brennon Mckeon on 07-05-2025 Troponin T.cardiac High sensitivity method [Mass/Vol] 27 ng/L High <22 [facility] Troponin T.cardiac High sensitivity method [Mass/Vol] 18 ng/L <22 [facility] Comment on above: Delta: 25 on 5-1811 White blood cell (WBC) count Ordered By: Brennon Mckeon on 07-05-2025 WBC (Bld) [#/Vol] 14.2 10*3/uL High 4.4-11.0 [facility] Vitamin D 1,25-Dihydroxyon 0 02-13-2025 VIT D 1,25 DIHY 8.9 pg/mL Abnormal 24.8-81.5 [facility] Comment on above: Result Comment: Perf ormed at: - [facility] [id number] Director: Saundra Anderson MD, Phone: [phone] Performed By: #### L 506.0200, L501.9520, L3300.0960, L503.0106, L501.9985, L501.9100, L505.5000 ####[facility] [address] [place], [address] Basic Metabolic Profile (BMP )on 02-12-2025 BUN Normal 4-19 [facility] Comment on above: Result Comment: Canc elled via OM: Order cancelled - Patient discharged Performed By: #### L 500.2500, L100.0100 ####[facility] [address] [place], [address] BUN/CRE Normal 10-20 [facility] Comment on above: Result Comment: Canc elled via OM: Order cancelled - Patient discharged Performed By: #### L 500.2500, L100.0100 ####[facility] [address] [place], [address] Calcium Normal 7.6-11.0 [facility] Comment on above: Result Comment: Canc elled via OM: Order cancelled - Patient discharged Performed By: #### L 500.2500, L100.0100 ####[facility] [address] [place], [address] CL Normal 98-108 [facility] Comment on above: Result Comment: Canc elled via OM: Order cancelled - Patient discharged Performed By: #### L 500.2500, L100.0100 ####[facility] [address] [place], [address] CO2 Normal 21.0-32.0 [facility] Comment on above: Result Comment: Canc elled via OM: Order cancelled - Patient discharged Performed By: #### L 500.2500, L100.0100 ####[facility] [address] [place], [address] CREAT,SERUM Normal 0.70-1.20 [facility] Comment on above: Result Comment: Canc elled via OM: Order cancelled - Patient discharged Performed By: #### L 500.2500, L100.0100 ####[facility] [address] [place], [address] eGFR Normal >60 [facility] Comment on above: Result Comment: Canc elled via OM: Order cancelled - Patient discharged Performed By: #### L 500.2500, L100.0100 ####[facility] [address] [place], [address] GAP Normal 5-15 [facility] Comment on above: Result Comment: Canc elled via OM: Order cancelled - Patient discharged Performed By: #### L 500.2500, L100.0100 ####[facility] [address] [place], [address] GLU Normal 70-99 [facility] Comment on above: Result Comment: Canc elled via OM: Order cancelled - Patient discharged Performed By: #### L 500.2500, L100.0100 ####[facility] [address] [place], [address] Potassium Normal 3.3-5.1 [facility] Comment on above: Result Comment: Canc elled via OM: Order cancelled - Patient discharged Performed By: #### L 500.2500, L100.0100 ####[facility] [address] [place], [address] Basic Metabolic Profile (BMP) Normal 133-145 [facility] Comment on above: Result Comment: Canc elled via OM: Order cancelled - Patient discharged Performed By: #### L 500.2500, L100.0100 ####[facility] [address] [place], [address] CBC W/Diff, Automatedon 03-2 Absolute Neut Normal 2.0-7.7 [facility] Comment on above: Result Comment: Canc elled via OM: Order cancelled - Patient discharged Performed By: #### L 500.2500, L100.0100 ####[facility] [address] [place], [address] HCT Normal 40-54 [facility] Comment on above: Result Comment: Canc elled via OM: Order cancelled - Patient discharged Performed By: #### L 500.2500, L100.0100 ####[facility] [address] [place], [address] HGB Normal 13.0-16.5 [facility] Comment on above: Result Comment: Canc elled via OM: Order cancelled - Patient discharged Performed By: #### L 500.2500, L100.0100 ####[facility] [address] [place], [address] MCH Normal 27.0-32.0 [facility] Comment on above: Result Comment: Canc elled via OM: Order cancelled - Patient discharged Performed By: #### L 500.2500, L100.0100 ####[facility] [address] [place], [address] MCHC Normal 32-36 [facility] Comment on above: Result Comment: Canc elled via OM: Order cancelled - Patient discharged Performed By: #### L 500.2500, L100.0100 ####[facility] [address] [place], [address] MCV Normal 80-94 [facility] Comment on above: Result Comment: Canc elled via OM: Order cancelled - Patient discharged Performed By: #### L 500.2500, L100.0100 ####[facility] [address] [place], [address] NEUT% Normal 47-70 [facility] Comment on above: Result Comment: Canc elled via OM: Order cancelled - Patient discharged Performed By: #### L 500.2500, L100.0100 ####[facility] [address] [place], [address] PLT Normal 150-450 [facility] Comment on above: Result Comment: Canc elled via OM: Order cancelled - Patient discharged Performed By: #### L 500.2500, L100.0100 ####[facility] [address] [place], [address] RBC Normal 4.6-6.2 [facility] Comment on above: Result Comment: Canc elled via OM: Order cancelled - Patient discharged Performed By: #### L 500.2500, L100.0100 ####[facility] [address] [place], [address] RDW CV Normal 11.6-14.6 [facility] Comment on above: Result Comment: Canc elled via OM: Order cancelled - Patient discharged Performed By: #### L 500.2500, L100.0100 ####[facility] [address] [place], [address] RDW SD Normal 35.1-43.9 [facility] Comment on above: Result Comment: Canc elled via OM: Order cancelled - Patient discharged Performed By: #### L 500.2500, L100.0100 ####[facility] [address] [place], [address] WBC Normal 4.4-11.0 [facility] Comment on above: Result Comment: Canc elled via OM: Order cancelled - Patient discharged Performed By: #### L 500.2500, L100.0100 ####[facility] [address] [place], [address] Alcohol, Blood (Medical)-Ser umon 02-11-2025 SERUM ETOH < 10.1 Normal <=10.0 [facility] Comment on above: Result Comment: This test is for medical purposes only. The legaldefinition of intoxication varies according to local law. Performed By: #### L 506.0200, L501.9520, L3300.0960, L503.0106, L501.9985, L501.9100, L505.5000 ####[facility] [address] [place], [address] Amphetamines Screen method > 1000 ng/mL Ql (U)Ordered By: Mitchell Lucero on 02-11-2025 Amphetamines Ql (U) Negative <1000 ng/mL [facility] Urine Barbiturates Screen Negative < 200 ng/mL [facility] Bedside Glucoseon 02-11-2025 FINGERSTICK GLU 339 mg/dL High 74-106 [facility] Comment on above: Result Comment: CARLOS GEMENT OF PATIENT CARE PER NURSING PROTOCOL Performed By: #### L 501.080 ####[facility] [address] [place], [address] FINGERSTICK GLU 435 mg/dL High 74-106 [facility] Comment on above: Result Comment: CARLOS GEMENT OF PATIENT CARE PER NURSING PROTOCOL Performed By: #### L 501.080 ####[facility] [address] [place], [address] Brain W/WO Contraston 2024 Brain W/WO Contrast Normal [facility] Calculated very low density lipoprotein (VLDL) cholesterol measurementOrdered By: Mitchell Lucero on 02-11-2025 VLDL Cholesterol 15 mg/dL 5-40 [facility] Carotid Duplex Ultrasoundon 02-11-2025 Carotid Duplex Ultrasound Normal [facility] Echo Complete W/ Contraston 02-11-2025 Echo Complete W/ Contrast Normal [facility] Echocardiogram study reportO rdered By: Eric Flores on 02-11-2025 Study report [facility] [address] [place] [address] Echo Complete W/ Contrast 02/11/25 0953 MR#: [id number] Acct: [id number] Name: LATONYA ELDER Rep #:[id number] : 1970 54 From: Eric Torrez Attending [...] cm RVDd: 4.5 cm FS: 11.6 % LAV(MOD-bp): 107.2 ml LVAd ap4: 38.3 cm2 [...] % EF(MOD-sp2): 30.8 % EF(sp4-el): 29.7 % SV(MOD-sp4): 39.5 ml SV(MOD-sp2): 57.0 ml SV(sp4-el): 41.9 ml SI(MOD-sp4): 18.0 ml/m2 SI(MOD-sp2): 25.9 ml/m2 LA A4 area: 30.7 cm2 LA dimension(2D): 5.0 cm RA A4 area: 23.9 cm2 TAPSE: 1.5 cm Time Measurements MV dec time: 0.13 sec Doppler Measurements & Calculations MV E max teto: 101.6 cm/sec Lat Peak E' Teto: 6.3 cm/sec Med Peak E' Teto: 7.4 cm/sec MV A max teto: 23.5 cm/sec E/E' lat: 16.0 E/E' med: 13.7 MV E/A: 4.3 _ MV V2 max: 115.0 cm/sec MV dec slope: 809.3 cm/sec2 Ao V2 max: 90.8 cm/sec MV max P.3 mmHg Ao max P.3 mmHg MV V2 mean: 66.1 cm/sec Ao V2 mean: 64.7 cm/sec MV mean P.1 mmHg Ao mean P.9 mmHg MV V2 VTI: 22.6 cm Ao V2 VTI: 15.5 cm AV (velocity ratio): 0.82 LV V1 max: 77.6 cm/sec TR max [...] By: Jose Bruner RCS 02/11/25 1125 Date _ Eric Flores MD CC: Dr. Mitchell Deras DO; Dr. Beka Bowie MD; Dr. Brennon Juarez DO ~ Date Dictated: 02/11/25 0953 Date Transcribed: 02/11/25 112 Public Health Dietitian: Signed [facility] Work Phone: Electrocardiogram reportOrde red By: Eric Flores on 02-11-2025 EKG study [facility] [address] [place] [address] 12 Lead EKG 02/10/25 1808 MR#: [id number] Acct: [id number] Name: LATONYA ELDER Rep #:[id number] : 1970 54 From: Eric Flores MD [...] Abnormal ECG Confirmed by ERIC FLORES MD ([id number]), assistant editor TESS PERRY ([id number]) on 02/11/2025 8:32:04 AM Referred By: Confirmed By: ERIC FLORES MD 02/11/25 0832 Date _ Eric Flores MD CC: Dr. Beka Bowie MD; Dr. Brennon Juarez DO; Dr. Jasbir Curry DO ~ Signed [facility] Work Phone: Ethanol [Mass/Vol]Ordered By : Mitchell Lucero on 02-11-2025 Ethyl Alcohol Level < 10.1 mg/dL <10.1 [facility] Comment on above: This test is for med ical purposes only. The legal definition of intoxication varies according to local law. FOLATES,SERUM (FOLIC ACID)on 02-11-2025 FOLATES,SERUM 7.12 ng/mL Normal 4.60-34.80 [facility] Comment on above: Result Comment: Hemo lysis, Results will be affected, Requires Recollection. Performed By: #### L 506.0200, L501.9520, L3300.0960, L503.0106, L501.9985, L501.9100, L505.5000 ####[facility] [address] [place], [place], [address] Folate [Mass/Vol]Ordered By: Mitchell Lucero on 02-11-2025 Serum Folate 7.12 ng/mL 4.60-34.80 [facility] Comment on above: Hemolysis, Results w ill be affected, Requires Recollection. [facility] deOrdered By: Brennon Juarez on 02-11-2025 Bedside Glucose (Misc Panel) 339 mg/dL High 74-106 [facility] Comment on above: MANAGEMENT OF PATIEN T CARE PER NURSING PROTOCOL Hemoglobin A1con 02-11-2025 HbA1c (Bld) [Mass fraction] 10.8 % Normal <=5.6 [facility] Comment on above: Performed By: #### L 506.0200, L501.9520, L3300.0960, L503.0106, L501.9985, L501.9100, L505.5000 ####[facility] [address] [place], [place], [address] Hemoglobin A1c percentageOrd ered By: Mitchell Lucero on 02-11-2025 HbA1c (Bld) [Mass fraction] 10.8 % >5.7 [facility] L. pneumophila Ag Ql (U)Orde red By: Brennon Juarez on 02-11-2025 Legionella Antigen [facility] L503.0106on 02-11-2025 Cobalamin (Vitamin B12) [Mass/Vol] 573 pg/mL Normal 180-914 [facility] Comment on above: Performed By: #### L 506.0200, L501.9520, L3300.0960, L503.0106, L501.9985, L501.9100, L505.5000 ####[facility] [address], [address] LDL calc ser/plasOrdered By: Mitchell Lucero on 02-11-2025 LDL Cholesterol, Calculated 160 mg/dL [facility] Comment on above: Javoibxias=486-629 m g/dL & Higher Fnny=495 mg/dL or greater Legionella Antigen Urineon 0 02-11-2025 LEGU Normal [facility] Comment on above: Performed By: #### M 300.4600, M300.4500 ####[facility] [address] [place], [address] Lipid Profileon 02-11-2025 CHOL:HDL 5.44 Normal [facility] Comment on above: Order Comment: Comme nts: NPO at [place] prior to lipid panel Performed By: #### L 500.1060 ####[facility] [address], [address] Cholesterol [Mass/Vol] 215 mg/dL High <=200 [facility] Comment on above: Order Comment: Comme nts: NPO at [place] prior to lipid panel Result Comment: Chol esterol level, Desirable <200 mg/dLBorderline high cholesterol 200-239 mg/dLHigh cholesterol >=240 mg/dLRecommendations of the NCEP Adult Treatment Panel for thefollowing risk-cutoff thresholds for the [place] Americanpopulation. Performed By: #### L 819.9126 ####[facility] [address] [place], [address] Cholesterol in HDL [Mass/Vol] 40 mg/dL Normal [facility] Comment on above: Order Comment: Comme nts: NPO at [place] prior to lipid panel Result Comment: Veronica onal Cholesterol Education Program (NCEP) guidelines:<40 mg/dL: Low HDL-cholesterol (major risk factor for CHD)>= 60 mg/dL: High HDL-cholesterol (negative risk factor forCHD)HDL-cholesterol is affected by a number of factors, e.g.smoking, exercise, hormones, sex and age. Performed By: #### L 500.4100 ####[facility] [address], [address] Cholesterol in LDL [Mass/Vol] 160 mg/dL Normal [facility] Comment on above: Order Comment: Comme nts: NPO at MN prior to lipid panel Result Comment: Bord ouyecl=992-073 mg/dL Higher Jpgw=936 mg/dL or greater Performed By: #### L 500.4100 ####[facility] [address] [place], [address] Cholesterol in VLDL [Mass/Vol] 15 mg/dL Normal 5-40 [facility] Comment on above: Order Comment: Comme nts: NPO at MN prior to lipid panel Performed By: #### L 500.4100 ####[facility] [address] [place], [address] Triglyceride [Mass/Vol] 76 mg/dL Normal [facility] Comment on above: Order Comment: Comme nts: NPO at MN prior to lipid panel Result Comment: The drugs N-Acetylcysteine and Metamizole may falselydepress this assay.Normal range: <150 mg/dLBorderline High: 150-199 mg/dLHigh: 200-499 mg/dLVery High: >500 mg/dL Performed By: #### L 500.4100 ####[facility] [address], [address] MR/CON.PCM.NEon 02-11-2025 MR/CON.PCM.NE Normal [facility] Magnetic resonance imaging r eportOrdered By: Mitchell King on 02-11-2025 Study report [facility] Imaging Services [address] [place] [address] Brain W/WO Contrast MR#: [id number] Acct: [id number] Name: LATONYA ELDER Rep #: [id number] : 1970 M 54 From: Fabien King MD PCP: Dr. Beka Bowie MD Status: A DM IN Study:Brain W/WO Contrast Date of Exam: 02/11/25 Exam# [id number] Ordering Dr: Mitchell King DO EXAM: MRI [...] in the CT of 02/11/2025. Reading Location: [address] CC: Dr. Mitchell Deras DO; Dr. Beka Bowie MD ~ Public Health Dietitian: Signed [facility] Methadone, urineOrdered By: Mitchell Lucero on 02-11-2025 Urine Methadone Screen Negative < 300 ng/mL [facility] No Panel InformationOrdered By: Mitchell Lucero on 02-11-2025 Urine Buprenorphine Qualitative Negative < 200 ng/mL [facility] Urine Oxycodone Screen Negative < 100 ng/mL [facility] Quantitative urine opiates m easurementOrdered By: Mitchell Lucero on 02-11-2025 Opiates Ql (U) Negative < 300 ng/mL [facility] Screening total cholesterol/ high density lipoprotein (HDL) cholesterol ratioOrdered By: Mitchell Lucero on 02-11-2025 Cholesterol.total/Tami sterol in HDL [Mass ratio] 5.44 {ratio} [facility] Serum or plasma cholesterol in HDL measurement (mass/volume)Ordered By: Mitchell Lucero on 02-11-2025 Cholesterol in HDL [Mass/Vol] 40 mg/dL >40 [facility] Comment on above: National Cholesterol Education Program (NCEP) guidelines:<40 mg/dL: Low HDL-cholesterol (major risk factor for CHD)>= 60 mg/dL: High HDL-cholesterol (negative risk factor for CHD)HDL-cholesterol is affected by a number of factors, e.g. smoking, exercise, hormones, sex and age. Serum or plasma cholesterol measurement (mass/volume)Ordered By: Mitchell Lucero on 02-11-2025 Cholesterol [Mass/Vol] 215 mg/dL High <201 [facility] Comment on above: Cholesterol level, D esirable <200 mg/dLBorderline high cholesterol 200-239 mg/dLHigh cholesterol >=240 mg/dLRecommendations of the NCEP Adult Treatment Panel for the following risk-cutoff thresholds for the [place] population. Strep pneumoniae Antig(UR,CS F)on 02-11-2025 STPAG Normal [facility] Comment on above: Performed By: #### M 300.7535, M300.3255 ####[facility] [address] [place], [address] Streptococcus pneumoniae ant igen assayOrdered By: Brennon Juarez on 02-11-2025 Streptococcus pneumoniae Antigen (M [facility] TSH DL <= 0.005 mIU/L QnOrde red By: Mitchell Lucero on 02-11-2025 Thyroid Stimulating Hormone (TSH) 0.973 uIU/mL 0.300-4.200 [facility] Thyroid Stim Hormone (TSH)on 02-11-2025 TSH 0.973 uIU/mL Normal 0.300-4.200 [facility] Comment on above: Performed By: #### L 506.0200, L501.9520, L3300.0960, L503.0106, L501.9985, L501.9100, L505.5000 ####[facility] [address] [place], [place], [phone] Triglycerides measurementOrd ered By: Mitchell Lucero on 02-11-2025 Triglyceride [Mass/Vol] 76 mg/dL <199 [facility] Comment on above: The drugs N-Acetylcy steine and Metamizole may falsely depress this assay. Normal range: <150 mg/dLBorderline High: 150-199 mg/dLHigh: 200-499 mg/dLVery High: >500 mg/dL Urine Drug Screen (VISTA)on 02-11-2025 AMPHETAMINES Negative Normal <1000 ng/mL [facility] Comment on above: Performed By: #### L 506.0200, L501.9520, L3300.0960, L503.0106, L501.9985, L501.9100, L505.5000 ####[facility] [address] [place], [place], [phone] BARBITIURATES Negative Normal < 200 ng/mL [facility] Comment on above: Performed By: #### L 506.0200, L501.9520, L3300.0960, L503.0106, L501.9985, L501.9100, L505.5000 ####[facility] [address] [place], [place], [phone] BENZODIAZIPINE Negative Normal < 200 ng/mL [facility] Comment on above: Performed By: #### L 506.0200, L501.9520, L3300.0960, L503.0106, L501.9985, L501.9100, L505.5000 ####[facility] [address] [place], [place], [phone] BUP Ur Drug Scr Negative Normal < 200 ng/mL [facility] Comment on above: Performed By: #### L 506.0200, L501.9520, L3300.0960, L503.0106, L501.9985, L501.9100, L505.5000 ####[facility] [address] [place], [place], [phone] COCAINE Negative Normal < 300 ng/mL [facility] Comment on above: Performed By: #### L 506.0200, L501.9520, L3300.0960, L503.0106, L501.9985, L501.9100, L505.5000 ####[facility] [address] [place], [phone] Fentanyl Negative Normal [facility] Comment on above: Performed By: #### L 506.0200, L501.9520, L3300.0960, L503.0106, L501.9985, L501.9100, L505.5000 ####[facility] [address] [place], [phone] METHADONE Negative Normal < 300 ng/mL [facility] Comment on above: Performed By: #### L 506.0200, L501.9520, L3300.0960, L503.0106, L501.9985, L501.9100, L505.5000 ####[facility] [address] [place], [phone] OPIATES Negative Normal < 300 ng/mL [facility] Comment on above: Performed By: #### L 506.0200, L501.9520, L3300.0960, L503.0106, L501.9985, L501.9100, L505.5000 ####[facility] [address] [place], [phone] OXYCODONE Negative Normal < 100 ng/mL [facility] Comment on above: Performed By: #### L 506.0200, L501.9520, L3300.0960, L503.0106, L501.9985, L501.9100, L505.5000 ####[facility] [address] [place], [place], [phone] PCP Negative Normal < 25 ng/mL [facility] Comment on above: Performed By: #### L 506.0200, L501.9520, L3300.0960, L503.0106, L501.9985, L501.9100, L505.5000 ####[facility] [address] [place], [address] THC Negative Normal < 50 ng/mL [facility] Comment on above: Performed By: #### L 506.0200, L501.9520, L3300.0960, L503.0106, L501.9985, L501.9100, L505.5000 ####[facility] [address] [place], [place], [phone] Urine benzodiazepine levelOr dered By: Mitchell Lucero on 02-11-2025 Benzodiazepines Ql (U) Negative < 200 ng/mL [facility] Urine cocaine levelOrdered B y: Mithcell Lucero on 02-11-2025 Cocaine Ql (U) Negative < 300 ng/mL [facility] Urine yndil-3-zkewlgzqkoipfa abinol (THC) measurementOrdered By: Mitchell Lucero on 02-11-2025 Cannabinoids Screen Ql (U) Negative < 50 ng/mL [facility] Urine phencyclidine (PCP) de tectionOrdered By: Mitchell Lucero on 02-11-2025 Phencyclidine Ql (U) Negative < 25 ng/mL [facility] Vitamin B12 ser/plasOrdered By: Mitchell Lucero on 02-11-2025 Cobalamin (Vitamin B12) [Mass/Vol] 573 pg/mL 180-914 [facility] fentaNYL Screen Ql (U)Ordere d By: Mitchell Lucero on 02-11-2025 Urine Fentanyl Screen Negative [facility] 12 Lead EKGon 02-10-2025 12 Lead EKG Normal [facility] Absolute neutrophil countOrd ered By: Jasbir Curry on 02-10-2025 Neutrophils (Bld) [#/Vol] 5.8 10*3/uL 2.0-7.7 [facility] Anion gap in Serum or Plasma Ordered By: Jasbir Curry on 02-10-2025 Anion gap [Moles/Vol] 12 mmol/L - [facility] BUN/creatinine ratioOrdered By: Jasbir Curry on 02-10-2025 Urea nitrogen/Creatinine [Mass ratio] 22.0 mg/mg High - [facility] Base excess Calc (BldV) [Mol es/Vol]Ordered By: Jasbir Curry on 02-10-2025 Venous Blood Base Excess 3 mmol/L -1.0-3.5 [facility] Basic Metabolic Profile (BMP )on 02-10-2025 BUN/CRE 22.0 RATIO High - [facility] Comment on above: Performed By: #### L 506.0400, L501.4021, L503.7505, L500.2500, L501.9520, L100.0100 ####[facility] [address] [place], [address] Calcium [Mass/Vol] 9.1 mg/dL Normal 7.6-11.0 [facility] Comment on above: Performed By: #### L 506.0400, L501.4021, L503.7505, L500.2500, L501.9520, L100.0100 ####[facility] [address] [place], [address] Chloride [Moles/Vol] 102 mmol/L Normal 98-[address] [facility] Comment on above: Performed By: #### L 506.0400, L501.4021, L503.7505, L500.2500, L501.9520, L100.0100 ####[facility] [address] [place], [address] CO2 [Moles/Vol] 23.1 mmol/L Normal 21.0-32.0 [facility] Comment on above: Performed By: #### L 506.0400, L501.4021, L503.7505, L500.2500, L501.9520, L100.0100 ####[facility] [address] [place], [address] Creatinine [Mass/Vol] 1.09 mg/dL Normal 0.70-1.20 [facility] Comment on above: Performed By: #### L 506.0400, L501.4021, L503.7505, L500.2500, L501.9520, L100.0100 ####[facility] [address] [place], [address] ECRCL 93.49 ml/min Normal 50-250 [facility] Comment on above: Performed By: #### L 506.0400, L501.4021, L503.7505, L500.2500, L501.9520, L100.0100 ####[facility] [address] [place], [address] GAP 12 Normal 5-15 [facility] Comment on above: Performed By: #### L 506.0400, L501.4021, L503.7505, L500.2500, L501.9520, L100.0100 ####[facility] [address] [place], [address] GFR/1.73 sq M.predicted among non-blacks MDRD (S/P/Bld) [Vol rate/Area] 81 mL/min/{1.73_m2} Normal >60 [facility] Comment on above: Result Comment: mL/m in/1.73m2 CKD-EPI Creatinine Equation (2020) Performed By: #### L 506.0400, L501.4021, L503.7505, L500.2500, L501.9520, L100.0100 ####[facility] [address] [place], [address] Glucose [Mass/Vol] 255 mg/dL High 70-99 [facility] Comment on above: Performed By: #### L 506.0400, L501.4021, L503.7505, L500.2500, L501.9520, L100.0100 ####[facility] [address], [address] Potassium [Moles/Vol] 4.3 mmol/L Normal 3.3-5.1 [facility] Comment on above: Result Comment: Hemo lysis present, Results??could be affected.?? Performed By: #### L 506.0400, L501.4021, L503.7505, L500.2500, L501.9520, L100.0100 ####[facility] [address] [place], [address] Sodium [Moles/Vol] 137 mmol/L Normal 133-145 [facility] Comment on above: Performed By: #### L 506.0400, L501.4021, L503.7505, L500.2500, L501.9520, L100.0100 ####[facility] [address], [address] Urea nitrogen [Mass/Vol] 24 mg/dL High 4-19 [facility] Comment on above: Performed By: #### L 506.0400, L501.4021, L503.7505, L500.2500, L501.9520, L100.0100 ####[facility] [address] [place], [address] Basophil percentageOrdered B y: Jasbir Curry on 02-10-2025 Basophils/100 WBC (Bld) 0.8 % 0-1 [facility] Bedside Glucoseon 02-10-2025 FINGERSTICK GLU 234 mg/dL High 74-106 [facility] Comment on above: Result Comment: CARLOS GEMENT OF PATIENT CARE PER NURSING PROTOCOL Performed By: #### L 501.080 ####[facility] [address] [place], [address] CBC W/Diff, Automatedon 03-2 -2024 Absolute Lymph 2.41 X10 3/uL Normal 0.83-4.51 [facility] Comment on above: Performed By: #### L 506.0400, L501.4021, L503.7505, L500.2500, L501.9520, L100.0100 ####[facility] [address] [place], [address] Absolute Neut 5.8 X10 3/uL Normal 2.0-7.7 [facility] Comment on above: Performed By: #### L 506.0400, L501.4021, L503.7505, L500.2500, L501.9520, L100.0100 ####[facility] [address] [place], [address] Basophils/100 WBC (Bld) 0.8 % Normal 0-1 [facility] Comment on above: Performed By: #### L 506.0400, L501.4021, L503.7505, L500.2500, L501.9520, L100.0100 ####[facility] [address] [place], [address] Eosinophils/100 WBC (Bld) 2.4 % Normal 0-5 [facility] Comment on above: Performed By: #### L 506.0400, L501.4021, L503.7505, L500.2500, L501.9520, L100.0100 ####[facility] [address] [place], [address] Erythrocyte distribution width (RBC) [Ratio] 13.9 % Normal 11.6-14.6 [facility] Comment on above: Performed By: #### L 506.0400, L501.4021, L503.7505, L500.2500, L501.9520, L100.0100 ####[facility] [address] [place], [address] Hematocrit (Bld) [Volume fraction] 41.1 % Normal 40-54 [facility] Comment on above: Performed By: #### L 506.0400, L501.4021, L503.7505, L500.2500, L501.9520, L100.0100 ####[facility] [address] [place], [address] Hemoglobin (Bld) [Mass/Vol] 13.5 g/dL Normal 13.0-16.5 [facility] Comment on above: Performed By: #### L 506.0400, L501.4021, L503.7505, L500.2500, L501.9520, L100.0100 ####[facility] [address] [place], [address] IG% 0.300 Normal 0.0-0.9 [facility] Comment on above: Result Comment: IG% - Immature Granulocytes (promyelocytes, myelocytes andmetamyelocytes) > 1% indicates that a LEFT SHIFT is Present. Performed By: #### L 506.0400, L501.4021, L503.7505, L500.2500, L501.9520, L100.0100 ####[facility] [address] [place], [address] Lymphocytes/100 WBC (Bld) 25.5 % Normal 19-41 [facility] Comment on above: Performed By: #### L 506.0400, L501.4021, L503.7505, L500.2500, L501.9520, L100.0100 ####[facility] [address] [place], [address] MCH (RBC) [Entitic mass] 27.4 pg Normal 27.0-32.0 [facility] Comment on above: Performed By: #### L 506.0400, L501.4021, L503.7505, L500.2500, L501.9520, L100.0100 ####[facility] [address] [place], [address] MCHC (RBC) [Mass/Vol] 32.8 g/dL Normal 32-36 [facility] Comment on above: Performed By: #### L 506.0400, L501.4021, L503.7505, L500.2500, L501.9520, L100.0100 ####[facility] [address] [place], [address] MCV (RBC) [Entitic vol] 83.5 fL Normal 80-94 [facility] Comment on above: Performed By: #### L 506.0400, L501.4021, L503.7505, L500.2500, L501.9520, L100.0100 ####[facility] [address] [place], [address] Monocytes/100 WBC (Bld) 9.2 % Normal 0-10 [facility] Comment on above: Performed By: #### L 506.0400, L501.4021, L503.7505, L500.2500, L501.9520, L100.0100 ####[facility] [address] [place], [address] Neutrophils/100 WBC (Bld) 61.8 % Normal 47-70 [facility] Comment on above: Performed By: #### L 506.0400, L501.4021, L503.7505, L500.2500, L501.9520, L100.0100 ####[facility] [address] [place], [address] Nucleated RBC (Bld) [#/Vol] 0 10*3/uL Normal 0-5 [facility] Comment on above: Performed By: #### L 506.0400, L501.4021, L503.7505, L500.2500, L501.9520, L100.0100 ####[facility] [address] [place], [address] Platelet mean volume (Bld) [Entitic vol] 10.6 fL Normal 6.2-12.0 [facility] Comment on above: Performed By: #### L 506.0400, L501.4021, L503.7505, L500.2500, L501.9520, L100.0100 ####[facility] [address] [place], [address] Platelets (Bld) [#/Vol] 317 10*3/uL Normal 150-450 [facility] Comment on above: Performed By: #### L 506.0400, L501.4021, L503.7505, L500.2500, L501.9520, L100.0100 ####[facility] [address] [place], [address] RBC (Bld) [#/Vol] 4.92 10*6/uL Normal 4.6-6.2 [facility] Comment on above: Performed By: #### L 506.0400, L501.4021, L503.7505, L500.2500, L501.9520, L100.0100 ####[facility] [address] [place], [address] RDW SD 42.5 fl Normal 35.1-43.9 [facility] Comment on above: Performed By: #### L 506.0400, L501.4021, L503.7505, L500.2500, L501.9520, L100.0100 ####[facility] [address] [place], [address] WBC (Bld) [#/Vol] 9.4 10*3/uL Normal 4.4-11.0 [facility] Comment on above: Performed By: #### L 506.0400, L501.4021, L503.7505, L500.2500, L501.9520, L100.0100 ####[facility] [address] [place], [address] CO2 (BldV) [Moles/Vol]Ordere d By: Jasbir Curry on 02-10-2025 CO2 [Moles/Vol] 30 mmol/L 23-33 [facility] CO2 (BldV) [Partial pressure ]Ordered By: Jasbir Curry on 02-10-2025 Bed Mix Venous Bld PCO2 at Pat Temp 47.6 mmHg 41-51 [facility] Carbon dioxide, total [Moles /volume] in Central venous bloodOrdered By: Jasbir Curry on 02-10-2025 CO2 [Moles/Vol] 23.1 mmol/L 21.0-32.0 [facility] Chest PA and Lateralon 02-10 Chest PA and Lateral Normal [facility] Chloride assayOrdered By: Cheng Curry on 02-10-2025 Chloride [Moles/Vol] 102 mmol/L 98-[address] [facility] Emergency Department Summary on 02-10-2025 Emergency Department Summary Normal [facility] Eosinophil percentageOrdered By: Jasbir Curry on 02-10-2025 Eosinophils/100 WBC (Bld) 2.4 % 0-5 [facility] Erythrocyte distribution wid th ratioOrdered By: Jasbir Curry on 02-10-2025 Erythrocyte distribution width (RBC) [Ratio] 13.9 % 11.6-14.6 [facility] Erythrocyte distribution wid th standard deviationOrdered By: Jasbir Curry on 02-10-2025 Erythrocyte distribution width (RBC) [Entitic vol] 42.5 fL 35.1-43.9 [facility] Estimation of creatinine lauren aranceOrdered By: Jasbir Curry on 02-10-2025 Estimated Creatinine Clearance Calc 93.49 ml/min 50-250 [facility] GFR/1.73 sq M.predicted zachery g non-blacks MDRD (S/P/Bld) [Vol rate/Area]Ordered By: Jasbir Curry on 02-10-2025 Estimated GFR (MDRD) Non-Af Amer 81 >60 [facility] Comment on above: mL/min/1.73m2 CKD-EP I Creatinine Equation (2020) [facility]dered By: Jasbir Curry on 02-10-2025 Bedside [facility]) 234 mg/dL High 74-106 [facility] Comment on above: MANAGEMENT OF PATIEN T CARE PER NURSING PROTOCOL H AND P Exam - Hospitaliston 02-10-2025 H&P Exam - [facility] Hematocrit Auto (Bld) [Volum e fraction]Ordered By: Jasbir Curry on 02-10-2025 Hematocrit (Bld) [Volume fraction] 41.1 % 40-54 [facility] Hemoglobin measurementOrdere d By: Jasbir Curry on 02-10-2025 Hemoglobin (Bld) [Mass/Vol] 13.5 g/dL 13.0-16.5 [facility] Immature granulocytes/100 WB C Auto (Bld)Ordered By: Jasbir Curry on 02-10-2025 Immature granulocytes/100 WBC (Bld) 0.300 % 0.0-0.9 [facility] Comment on above: IG% - Immature Granu locytes (promyelocytes, myelocytes and metamyelocytes) > 1% indicates that a LEFT SHIFT is Present. L499.0042on 02-10-2025 Trop T High Sen 24 ng/L High <=22 [facility] Comment on above: Performed By: #### L 499.0042 ####[facility] [address] [place], [address] L499.0043on 02-10-2025 Trop T High Sen Normal <=22 [facility] Comment on above: Result Comment: Leila tavera via OM: Ordered Performed By: #### L 499.0043 ####[facility] [address] [place], [address] L501.4021on 02-10-2025 Trop T High Sen 25 ng/L High <=22 [facility] Comment on above: Result Comment: Hemo lysis present, Results??could be affected.?? Performed By: #### L 506.0400, L501.4021, L503.7505, L500.2500, L501.9520, L100.0100 ####[facility] [address], [address] L503.7505on 02-10-2025 Natriuretic peptide B (Bld) [Mass/Vol] 709 pg/mL Normal <=900 [facility] Comment on above: Result Comment: Hear t Failure Unlikely: < 300 pg/mLHeart Failure Likely< 50 Years: > 450 pg/mL50-75 Years: > 900 pg/mL>75 Years: > 1800 pg/mL Performed By: #### L 506.0400, L501.4021, L503.7505, L500.2500, L501.9520, L100.0100 ####[facility] [address] [facility] [address] [place], [place], [phone] Laboratory - Chemistry and C hemistry - challengeOrdered By: Jasbir Curry on 02-10-2025 Natriuretic peptide B (Bld) [Mass/Vol] 709 pg/mL <900 [facility] Comment on above: Heart Failure Unlike ly: < 300 pg/mLHeart Failure Likely< 50 Years: > 450 pg/mL50-75 Years: > 900 pg/mL>75 Years: > 1800 pg/mL Lactic Acidon 02-10-2025 Lactate [Moles/Vol] 1.9 mmol/L Normal 0.0-2.0 [facility] Comment on above: Order Comment: Y Performed By: #### L 503.6005 ####[facility] [address] [facility] [place], [place], [id number] Lactic acid measurementOrder ed By: Jasbir Curry on 02-10-2025 Lactate [Moles/Vol] 1.9 mmol/L 0.0-2.0 [facility] Lymphocytes Auto (Unsp spec) [#/Vol]Ordered By: Jasbir Curry on 02-10-2025 Lymphocytes (Bld) [#/Vol] 2.41 10*3/uL 0.83-4.51 [facility] Lymphocytes/100 WBC Auto (Un sp spec)Ordered By: Jasbir Curry on 02-10-2025 Lymphocytes/100 WBC (Bld) 25.5 % 19-41 [facility] MCV (mean corpuscular volume ) determinationOrdered By: Jasbir Curry on 02-10-2025 MCV (RBC) [Entitic vol] 83.5 fL 80-94 [facility] Mean corpuscular hemoglobin (MCH) determinationOrdered By: Jasbir Curry on 02-10-2025 MCH (RBC) [Entitic mass] 27.4 pg 27.0-32.0 [facility] Mean corpuscular hemoglobin concentration (MCHC) determinationOrdered By: Jasbir Curry on 02-10-2025 MCHC (RBC) [Mass/Vol] 32.8 g/dL 32-36 [facility] Mean platelet volume determi nationOrdered By: Jasbir Curry on 02-10-2025 Platelet mean volume (Bld) [Entitic vol] 10.6 fL 6.2-12.0 [facility] Monocyte percentageOrdered B y: Jasbir Curry on 02-10-2025 Monocytes/100 WBC (Bld) 9.2 % 0-10 [facility] Neutrophil percentageOrdered By: Jasbir Curry on 02-10-2025 Neutrophils/100 WBC (Bld) 61.8 % 47-70 [facility] No Panel InformationOrdered By: Jasbir Curry on 02-10-2025 Blood Gas Sample Site Not entered [facility] Blood Gas Specimen Type TAMIKA W [facility] Oxygen Delivery Device Room Air [facility] Troponin T High Sensitivity 25 ng/L High <22 [facility] Comment on above: Hemolysis present, R esults could be affected. Nucleated red blood cell per centageOrdered By: Jasbir Curry on 02-10-2025 Nucleated RBC/100 WBC (Bld) [Ratio] 0 % 0-5 [facility] Oxygen (BldV) [Partial press ure]Ordered By: Jasbir Curry on 02-10-2025 Venous Blood Partial Pressure O2 52 mmHg High 25-40 [facility] Platelet countOrdered By: Cheng Curry on 02-10-2025 Platelets (Bld) [#/Vol] 317 10*3/uL 150-450 [facility] Potassium (Unsp spec) [Mass/ Vol]Ordered By: Jasbir Curry on 02-10-2025 Potassium [Moles/Vol] 4.3 mmol/L 3.3-5.1 [facility] Comment on above: Hemolysis present, R esults could be affected. RBC Auto (Bld) [#/Vol]Ordere d By: Jasbir Curry on 02-10-2025 RBC (Bld) [#/Vol] 4.92 10*6/uL 4.6-6.2 [facility] STROKE Brain/Head without Co nton 02-10-2025 STROKE Brain/Head without Cont Normal [facility] STROKE CTA Head AND Neck W/C onon 02-10-2025 STROKE CTA Head AND Neck W/Con Normal [facility] Serum creatinine measurement (mass/volume)Ordered By: Jasbir Curry on 02-10-2025 Creatinine [Mass/Vol] 1.09 mg/dL 0.70-1.20 [facility] Serum glucose measurement (m ass/volume)Ordered By: Jasbir Curry on 02-10-2025 Glucose [Mass/Vol] 255 mg/dL High 70-99 [facility] Serum or plasma calcium jessica urement (mass/volume)Ordered By: Jasbir Curry on 02-10-2025 Calcium [Mass/Vol] 9.1 mg/dL 7.6-11.0 [facility] Serum or plasma urea nitroge n measurement (mass/volume)Ordered By: Jasbir Curry on 02-10-2025 Urea nitrogen [Mass/Vol] 24 mg/dL High 4-19 [facility] Sodium levelOrdered By: Trey Curry on 02-10-2025 Sodium [Moles/Vol] 137 mmol/L 133-145 [facility] T4 Free Directon 02-10-2025 T4 FREE DIRECT 1.20 ng/dL Normal 0.76-1.46 [facility] Comment on above: Performed By: #### L 506.0400, L501.4021, L503.7505, L500.2500, L501.9520, L100.0100 ####[facility] [address] [place], [place], [address] T4 freeOrdered By: Jasbir jennings on 02-10-2025 Free T4 [Mass/Vol] 1.20 ng/dL 0.76-1.46 [facility] TSH DL <= 0.005 mIU/L QnOrde red By: Jasbir Curry on 02-10-2025 Thyroid Stimulating Hormone (TSH) 3.160 uIU/mL 0.300-4.200 [facility] Thyroid Stim Hormone (TSH)on 02-10-2025 TSH 3.160 uIU/mL Normal 0.300-4.200 [facility] Comment on above: Performed By: #### L 506.0400, L501.4021, L503.7505, L500.2500, L501.9520, L100.0100 ####[facility] [address] [place], [place], [id number] Troponin T.cardiac High sens itivity method [Mass/Vol]Ordered By: Jasbir Curry on 02-10-2025 Troponin T High Sensitivity 2 Hour 24 ng/L High <22 [facility] Venous Blood Gason 5 Blood Gas Type TAMIKA Normal [facility] Comment on above: Performed By: #### L 9000.0810 ####[facility] [address] [place], [address] CO2 [Moles/Vol] 30 mmol/L Normal 23-33 [facility] Comment on above: Performed By: #### L 9000.0810 ####[facility] [address], [address] HCO3 (Bld) [Moles/Vol] 28 mmol/L High 22-26 [facility] Comment on above: Performed By: #### L 9000.0810 ####[facility] [address] [place], [address] O2 Delivery Dev Room Air Normal [facility] Comment on above: Performed By: #### L 9000.0810 ####[facility] [address] [place], [address] SITE Not entered Normal [facility] Comment on above: Performed By: #### L 9000.0810 ####[facility] [address] [place], [address] VBG BE 3 mmol/L Normal -1.0-3.5 [facility] Comment on above: Performed By: #### L 9000.0810 ####[facility] [address] [place], [address] VBG pCO2 47.6 mmHg Normal 41-51 [facility] Comment on above: Performed By: #### L 9000.0810 ####[facility] [address] [place], [address] VBG pH 7.38 Normal 7.32-7.42 [facility] Comment on above: Performed By: #### L 9000.0810 ####[facility] [address] [place], [address] VBG PO2 52 mmHg High 25-40 [facility] Comment on above: Performed By: #### L 9000.0810 ####[facility] [address] [place], [address] VBG SO2 85 High 50-70 [facility] Comment on above: Performed By: #### L 9000.0810 ####[facility] [address] [place], [address] Venous blood bicarbonate adria surementOrdered By: Jasbir Curry on 02-10-2025 HCO3 (Bld) [Moles/Vol] 28 mmol/L High 22-26 [facility] Venous blood oxygen saturati on measurementOrdered By: Jasbir Curry on 02-10-2025 Oxygen saturation in Blood 85 % High 50-70 [facility] White blood cell (WBC) count Ordered By: Jasbir Curry on 02-10-2025 WBC (Bld) [#/Vol] 9.4 10*3/uL 4.4-11.0 [facility] pH (BldV)Ordered By: Jasbir thomas on 02-10-2025 Venous Blood pH 7.38 7.32-7.42 [facility] Vitamin D 1,25-Dihydroxyon 1 12-14-2023 VIT D 1,25 DIHY 45.5 pg/mL Normal 24.8-81.5 [facility] Comment on above: Result Comment: Perf ormed at: [facility] [address] [id number] Director: Saundra Anderson MD, Phone: [phone] Performed By: #### L 3300.0960 ####[facility] [address] [place], [address] Basic Metabolic Profile (BMP )on 10-13-2024 BUN/CRE 32.6 RATIO High 10-20 [facility] Comment on above: Performed By: #### L 500.2500 ####[facility] [address] [place], [address] CA,Total 8.9 mg/dL Normal 8.5-10.1 [facility] Comment on above: Performed By: #### L 500.2500 ####[facility] [address] [place], [address] Chloride [Moles/Vol] 105 mmol/L Normal 98-[address] [facility] Comment on above: Performed By: #### L 500.2500 ####[facility] [address] [place], [address] CO2 [Moles/Vol] 26.0 mmol/L Normal 21.0-32.0 [facility] Comment on above: Performed By: #### L 500.2500 ####[facility] [address] [place], [address] Creatinine [Mass/Vol] 1.32 mg/dL High 0.70-1.30 [facility] Comment on above: Result Comment: The validity of the calculated GFR GFRAA in patients over70 years has not been determined. Clinical correlation isessential. Performed By: #### L 500.2500 ####[facility] [address] [place], [address] ECRCL 78.14 ml/min Normal [facility] Comment on above: Performed By: #### L 500.2500 ####[facility] [address] [place], [address] EST GFR - AA 73 mL/min Normal >60 [facility] Comment on above: Result Comment: Afri can Egyptian GFR Calc Performed By: #### L 500.2500 ####[facility] [address] [place], [address] GAP 4 Low 5-15 [facility] Comment on above: Performed By: #### L 500.2500 ####[facility] [address] [place], [address] GFR/1.73 sq M.predicted among non-blacks MDRD (S/P/Bld) [Vol rate/Area] 60 mL/min/{1.73_m2} Normal >60 [facility] Comment on above: Result Comment: Non- GFR Calc Performed By: #### L 500.2500 ####[facility] [address] [place], [address] Glucose [Mass/Vol] 271 mg/dL High 74-106 [facility] Comment on above: Result Comment: Gluc ose result greater than or equal to 200 mg/dLsuggests DIABETES MELLITUS per A.D.A. criteria. Performed By: #### L 500.2500 ####[facility] [address] [place], [address] Potassium [Moles/Vol] 4.6 mmol/L Normal 3.5-5.1 [facility] Comment on above: Result Comment: Slig ht Hemolysis, Result may be falsely increased. Performed By: #### L 500.2500 ####[facility] [address] [place], [address] Sodium [Moles/Vol] 135 mmol/L Low 136-145 [facility] Comment on above: Performed By: #### L 500.2500 ####[facility] [address] [place], [address] Urea nitrogen [Mass/Vol] 43 mg/dL High 7-18 [facility] Comment on above: Performed By: #### L 500.2500 ####[facility] [address] [place], [address] Bedside Glucoseon 10-13-2024 FINGERSTICK GLU 370 mg/dL High 74-106 [facility] Comment on above: Result Comment: CARLOS GEMENT OF PATIENT CARE PER NURSING PROTOCOL Performed By: #### L 501.080 ####[facility] [address] [place], [address] FINGERSTICK GLU 262 mg/dL High 74-106 [facility] Comment on above: Result Comment: CARLOS GEMENT OF PATIENT CARE PER NURSING PROTOCOL Performed By: #### L 501.080 ####[facility] [address] [place], [address] CBC W/Diff, Automatedon 09-20 Absolute Lymph 1.69 X10 3/uL Normal 0.83-4.51 [facility] Comment on above: Performed By: #### L 100.0100 ####[facility] [address] [place], [address] Absolute Neut 17.9 X10 3/uL High 2.0-7.7 [facility] Comment on above: Performed By: #### L 100.0100 ####[facility] [address] [place], [address] Basophils/100 WBC (Bld) 0.1 % Normal 0-1 [facility] Comment on above: Performed By: #### L 100.0100 ####[facility] [address] [place], [address] Eosinophils/100 WBC (Bld) 0.0 % Normal 0-5 [facility] Comment on above: Performed By: #### L 100.0100 ####[facility] [address] [place], [address] Erythrocyte distribution width (RBC) [Ratio] 13.2 % Normal 11.6-14.6 [facility] Comment on above: Performed By: #### L 100.0100 ####[facility] [address] [place], [address] Hematocrit (Bld) [Volume fraction] 40.8 % Normal 40-54 [facility] Comment on above: Performed By: #### L 100.0100 ####[facility] [address] [place], [address] Hemoglobin (Bld) [Mass/Vol] 12.9 g/dL Low 13.0-16.5 [facility] Comment on above: Performed By: #### L 100.0100 ####[facility] [address] [place], [address] IG% 1.000 High 0.0-0.9 [facility] Comment on above: Result Comment: IG% - Immature Granulocytes (promyelocytes, myelocytes andmetamyelocytes) > 1% indicates that a LEFT SHIFT is Present. Performed By: #### L 100.0100 ####[facility] [address] [place], [address] Lymphocytes/100 WBC (Bld) 8.3 % Low 19-41 [facility] Comment on above: Performed By: #### L 100.0100 ####[facility] [address] [place], [address] MCH (RBC) [Entitic mass] 27.7 pg Normal 27.0-32.0 [facility] Comment on above: Performed By: #### L 100.0100 ####[facility] [address] [place], [address] MCHC (RBC) [Mass/Vol] 31.6 g/dL Low 32-36 [facility] Comment on above: Performed By: #### L 100.0100 ####[facility] [address] [place], [address] MCV (RBC) [Entitic vol] 87.6 fL Normal 80-94 [facility] Comment on above: Performed By: #### L 100.0100 ####[facility] [address] [place], [address] Monocytes/100 WBC (Bld) 3.0 % Normal 0-10 [facility] Comment on above: Performed By: #### L 100.0100 ####[facility] [address] [place], [address] Neutrophils/100 WBC (Bld) 87.6 % High 47-70 [facility] Comment on above: Performed By: #### L 100.0100 ####[facility] [address] [place], [address] Nucleated RBC (Bld) [#/Vol] 0 10*3/uL Normal 0-5 [facility] Comment on above: Performed By: #### L 100.0100 ####[facility] [address] [place], [address] Platelet mean volume (Bld) [Entitic vol] 10.9 fL Normal 6.2-12.0 [facility] Comment on above: Performed By: #### L 100.0100 ####[facility] [address] [place], [address] Platelets (Bld) [#/Vol] 375 10*3/uL Normal 150-450 [facility] Comment on above: Performed By: #### L 100.0100 ####[facility] [address] [place], [address] RBC (Bld) [#/Vol] 4.66 10*6/uL Normal 4.6-6.2 [facility] Comment on above: Performed By: #### L 100.0100 ####[facility] [address] [place], [address] RDW SD 42.4 fl Normal 35.1-43.9 [facility] Comment on above: Performed By: #### L 100.0100 ####[facility] [address] [place], [address] WBC (Bld) [#/Vol] 20.4 10*3/uL High 4.4-11.0 [facility] Comment on above: Performed By: #### L 100.0100 ####[facility] [address] [place], [address] Discharge Instructionon 09-20 Discharge Instruction Normal [facility] Respiratory Cultureon 2023 RESPC SENT LABEL TO U FO R COLLECTION Mixed normal respiratory katya. No Haemophilus, Streptococcus pneumoniae, beta-hemolytic Streptococcus or Staphylococcus aureus isolated. Normal [facility] Comment on above: Performed By: #### M 100.2000, M100.2400 ####[facility] [address] [place], [address] 12 Lead EKGon 10-12-2024 12 Lead EKG Normal [facility] BNP,B-Type NATRIURETIC PEPTI [place]ow 10-12-2024 Natriuretic peptide B (Bld) [Mass/Vol] 148.6 pg/mL High 0-100 [facility] Comment on above: Performed By: #### L 503.6620 ####[facility] [address] [place], [address] Bedside Glucoseon 10-12-2024 FINGERSTICK GLU 197 mg/dL High -106 [facility] Comment on above: Result Comment: CARLOS GEMENT OF PATIENT CARE PER NURSING PROTOCOL Performed By: #### L 501.080 ####[facility] [address], [address] FINGERSTICK GLU 79 mg/dL Normal -106 [facility] Comment on above: Result Comment: CARLOS GEMENT OF PATIENT CARE PER NURSING PROTOCOL Performed By: #### L 501.080 ####[facility] [address] [place], [address] FINGERSTICK GLU 229 mg/dL High [address] [place] [address] Comment on above: Result Comment: CARLOS GEMENT OF PATIENT CARE PER NURSING PROTOCOL Performed By: #### L 501.080 ####[facility] [address] [place], [address] FINGERSTICK GLU 338 mg/dL High [address] [place] [address] Comment on above: Result Comment: CARLOS GEMENT OF PATIENT CARE PER NURSING PROTOCOL Performed By: #### L 501.080 ####[facility] [address] [place], [address] FINGERSTICK GLU 448 mg/dL High [address] [place] [address] Comment on above: Result Comment: CARLOS GEMENT OF PATIENT CARE PER NURSING PROTOCOL Performed By: #### L 501.080 ####[facility] [address] [place], [address] FINGERSTICK GLU 342 mg/dL High [address] [place] [address] Comment on above: Result Comment: CARLOS GEMENT OF PATIENT CARE PER NURSING PROTOCOL Performed By: #### L 501.080 ####[facility] [address] [place], [address] CBC W/Diff, Automatedon 11-2 Absolute Lymph 1.49 X10 3/uL Normal 0.83-4.51 [facility] Comment on above: Performed By: #### L 100.0100, L500.4050, L501.2300, L501.5200 ####[facility] [address] [place], [address] Absolute Neut 12.0 X10 3/uL High 2.0-7.7 [facility] Comment on above: Performed By: #### L 100.0100, L500.4050, L501.2300, L501.5200 ####[facility] [address] [place], [address] Basophils/100 WBC (Bld) 0.0 % Normal 0-1 [facility] Comment on above: Performed By: #### L 100.0100, L500.4050, L501.2300, L501.5200 ####[facility] [address] [place], [address] Eosinophils/100 WBC (Bld) 0.0 % Normal 0-5 [facility] Comment on above: Performed By: #### L 100.0100, L500.4050, L501.2300, L501.5200 ####[facility] [address] [place], [address] Erythrocyte distribution width (RBC) [Ratio] 13.0 % Normal 11.6-14.6 [facility] Comment on above: Performed By: #### L 100.0100, L500.4050, L501.2300, L501.5200 ####[facility] [address] [place], [address] Hematocrit (Bld) [Volume fraction] 40.3 % Normal 40-54 [facility] Comment on above: Performed By: #### L 100.0100, L500.4050, L501.2300, L501.5200 ####[facility] [address] [place], [address] Hemoglobin (Bld) [Mass/Vol] 12.9 g/dL Low 13.0-16.5 [facility] Comment on above: Performed By: #### L 100.0100, L500.4050, L501.2300, L501.5200 ####[facility] [address] [place], [address] IG% 0.900 Normal 0.0-0.9 [facility] Comment on above: Result Comment: IG% - Immature Granulocytes (promyelocytes, myelocytes andmetamyelocytes) > 1% indicates that a LEFT SHIFT is Present. Performed By: #### L 100.0100, L500.4050, L501.2300, L501.5200 ####[facility] [address] [place], [address] Lymphocytes/100 WBC (Bld) 10.6 % Low 19-41 [facility] Comment on above: Performed By: #### L 100.0100, L500.4050, L501.2300, L501.5200 ####[facility] [address] [place], [address] MCH (RBC) [Entitic mass] 27.6 pg Normal 27.0-32.0 [facility] Comment on above: Performed By: #### L 100.0100, L500.4050, L501.2300, L501.5200 ####[facility] [address] [place], [address] MCHC (RBC) [Mass/Vol] 32.0 g/dL Normal 32-36 [facility] Comment on above: Performed By: #### L 100.0100, L500.4050, L501.2300, L501.5200 ####[facility] [address] [place], [address] MCV (RBC) [Entitic vol] 86.1 fL Normal 80-94 [facility] Comment on above: Performed By: #### L 100.0100, L500.4050, L501.2300, L501.5200 ####[facility] [address] [place], [address] Monocytes/100 WBC (Bld) 3.6 % Normal 0-10 [facility] Comment on above: Performed By: #### L 100.0100, L500.4050, L501.2300, L501.5200 ####[facility] [address] [place], [address] Neutrophils/100 WBC (Bld) 84.9 % High 47-70 [facility] Comment on above: Performed By: #### L 100.0100, L500.4050, L501.2300, L501.5200 ####[facility] [address] [place], [address] Nucleated RBC (Bld) [#/Vol] 0 10*3/uL Normal 0-5 [facility] Comment on above: Performed By: #### L 100.0100, L500.4050, L501.2300, L501.5200 ####[facility] [address] [place], [address] Platelet mean volume (Bld) [Entitic vol] 11.1 fL Normal 6.2-12.0 [facility] Comment on above: Performed By: #### L 100.0100, L500.4050, L501.2300, L501.5200 ####[facility] [address] [place], [address] Platelets (Bld) [#/Vol] 378 10*3/uL Normal 150-450 [facility] Comment on above: Performed By: #### L 100.0100, L500.4050, L501.2300, L501.5200 ####[facility] [address] [place], [address] RBC (Bld) [#/Vol] 4.68 10*6/uL Normal 4.6-6.2 [facility] Comment on above: Performed By: #### L 100.0100, L500.4050, L501.2300, L501.5200 ####[facility] [address] [place], [address] RDW SD 40.6 fl Normal 35.1-43.9 [facility] Comment on above: Performed By: #### L 100.0100, L500.4050, L501.2300, L501.5200 ####[facility] [address] [place], [address] WBC (Bld) [#/Vol] 14.1 10*3/uL High 4.4-11.0 [facility] Comment on above: Performed By: #### L 100.0100, L500.4050, L501.2300, L501.5200 ####[facility] [address] [place], [address] Comprehensive Metabolic Prof [facility] 10-12-2024 Albumin [Mass/Vol] 2.7 g/dL Low 3.2-5.0 [facility] Comment on above: Performed By: #### L 100.0100, L500.4050, L501.2300, L501.5200 ####[facility] [address] [place], [address] Albumin/Globulin [Mass ratio] 0.6 {ratio} Low 0.9-2.4 [facility] Comment on above: Performed By: #### L 100.0100, L500.4050, L501.2300, L501.5200 ####[facility] [address] [place], [address] ALK P 87 U/L Normal 45-117 [facility] Comment on above: Performed By: #### L 100.0100, L500.4050, L501.2300, L501.5200 ####[facility] [address] [place], [address] ALT [Catalytic activity/Vol] 20 U/L Normal 16-61 [facility] Comment on above: Performed By: #### L 100.0100, L500.4050, L501.2300, L501.5200 ####[facility] [address], [address] AST [Catalytic activity/Vol] 7 U/L Low 15-37 [facility] Comment on above: Performed By: #### L 100.0100, L500.4050, L501.2300, L501.5200 ####[facility] [address] [place], [address] Bilirubin [Mass/Vol] 0.40 mg/dL Normal 0.20-1.[address] [facility] Comment on above: Result Comment: For patients on eltrombopag therapy, use of Dimension [place] TBIL is not recommended. Performed By: #### L 100.0100, L500.4050, L501.2300, L501.5200 ####[facility] [address] [place], [id number] BUN/CRE 27.0 RATIO High 10-20 [facility] Comment on above: Performed By: #### L 100.0100, L500.4050, L501.2300, L501.5200 ####[facility] [address] [place], [address] CA,Total 9.2 mg/dL Normal 8.5-10.1 [facility] Comment on above: Performed By: #### L 100.0100, L500.4050, L501.2300, L501.5200 ####[facility] [address] [place], [address] Chloride [Moles/Vol] 99 mmol/L Normal 98-[address] [facility] Comment on above: Performed By: #### L 100.0100, L500.4050, L501.2300, L501.5200 ####[facility] [address] [place], [address] CO2 [Moles/Vol] 25.0 mmol/L Normal 21.0-32.0 [facility] Comment on above: Performed By: #### L 100.0100, L500.4050, L501.2300, L501.5200 ####[facility] [address] [place], [address] Creatinine [Mass/Vol] 1.26 mg/dL Normal 0.70-1.30 [facility] Comment on above: Result Comment: The validity of the calculated GFR GFRAA in patients over70 years has not been determined. Clinical correlation isessential. Performed By: #### L 100.0100, L500.4050, L501.2300, L501.5200 ####[facility] [address] [place], [address] ECRCL 80.25 ml/min Normal [facility] Comment on above: Performed By: #### L 100.0100, L500.4050, L501.2300, L501.5200 ####[facility] [address] [place], [address] EST GFR - AA 77 mL/min Normal >60 [facility] Comment on above: Result Comment: Afri can Egyptian GFR Calc Performed By: #### L 100.0100, L500.4050, L501.2300, L501.5200 ####[facility] [address] [place], [address] GAP 9 Normal 5-15 [facility] Comment on above: Performed By: #### L 100.0100, L500.4050, L501.2300, L501.5200 ####[facility] [address] [place], [address] GFR/1.73 sq M.predicted among non-blacks MDRD (S/P/Bld) [Vol rate/Area] 64 mL/min/{1.73_m2} Normal >60 [facility] Comment on above: Result Comment: Non- GFR Calc Performed By: #### L 100.0100, L500.4050, L501.2300, L501.5200 ####[facility] [address] [place], [address] Globulin (S) [Mass/Vol] 4.2 g/dL Normal 2.2-4.2 [facility] Comment on above: Performed By: #### L 100.0100, L500.4050, L501.2300, L501.5200 ####[facility] [address] [place], [address] Glucose [Mass/Vol] 375 mg/dL High 74-106 [facility] Comment on above: Result Comment: Gluc ose result greater than or equal to 200 mg/dLsuggests DIABETES MELLITUS per A.D.A. criteria. Performed By: #### L 100.0100, L500.4050, L501.2300, L501.5200 ####[facility] [address] [place], [address] Potassium [Moles/Vol] 4.0 mmol/L Normal 3.5-5.1 [facility] Comment on above: Performed By: #### L 100.0100, L500.4050, L501.2300, L501.5200 ####[facility] [address] [place], [address] Sodium [Moles/Vol] 133 mmol/L Low 136-145 [facility] Comment on above: Performed By: #### L 100.0100, L500.4050, L501.2300, L501.5200 ####[facility] [address] [place], [address] T PROT 6.9 g/dL Normal 6.4-8.2 [facility] Comment on above: Performed By: #### L 100.0100, L500.4050, L501.2300, L501.5200 ####[facility] [address] [place], [address] Urea nitrogen [Mass/Vol] 34 mg/dL High 7-18 [facility] Comment on above: Performed By: #### L 100.0100, L500.4050, L501.2300, L501.5200 ####[facility] [address] [place], [address] Magnesiumon 10-12-2024 Magnesium [Mass/Vol] 1.9 mg/dL Normal 1.6-2.[address] [facility] Comment on above: Performed By: #### L 100.0100, L500.4050, L501.2300, L501.5200 ####[facility] [address] [place], [address] Phosphoruson 10-12-2024 Phosphate [Mass/Vol] 3.3 mg/dL Normal 2.5-4.[address] [facility] Comment on above: Performed By: #### L 100.0100, L500.4050, L501.2300, L501.5200 ####[facility] [address] [place], [address] BNP,B-Type NATRIURETIC PEPTI Willow 10-11-2024 Natriuretic peptide B (Bld) [Mass/Vol] 206.7 pg/mL High 0-100 [facility] Comment on above: Performed By: #### L 503.6655 ####[facility] [address] [place], [address] Bedside Glucoseon 10-11-2024 FINGERSTICK GLU 268 mg/dL High [address] [place] [address] Comment on above: Result Comment: CARLOS GEMENT OF PATIENT CARE PER NURSING PROTOCOL Performed By: #### L 501.080 ####[facility] [address] [facility] [address] FINGERSTICK GLU 358 mg/dL High [address] [place] [address] Comment on above: Result Comment: CARLOS GEMENT OF PATIENT CARE PER NURSING PROTOCOL Performed By: #### L 501.080 ####[facility] [address] [facility] [address] FINGERSTICK GLU 272 mg/dL High [address] [place] [address] Comment on above: Result Comment: CARLOS GEMENT OF PATIENT CARE PER NURSING PROTOCOL Performed By: #### L 501.080 ####[facility] [address] [facility] [address] FINGERSTICK GLU 284 mg/dL High [address] [place] [address] Comment on above: Result Comment: CARLOS GEMENT OF PATIENT CARE PER NURSING PROTOCOL Performed By: #### L 501.080 ####[facility] [address] [place], [address] FINGERSTICK GLU 252 mg/dL High [address] [place] [address] Comment on above: Result Comment: CARLOS GEMENT OF PATIENT CARE PER NURSING PROTOCOL Performed By: #### L 501.080 ####[facility] [address] [facility] [address] FINGERSTICK GLU 152 mg/dL High [address] [place] [address] Comment on above: Result Comment: CARLOS GEMENT OF PATIENT CARE PER NURSING PROTOCOL Performed By: #### L 501.080 ####[facility] [address] [facility] [address] CBC W/Diff, Automatedon -2 Absolute Lymph 1.52 X10 3/uL Normal 0.83-4.51 [facility] Comment on above: Performed By: #### L 100.0100, L501.5200, L500.4050, L501.2300 ####[facility] [address] [place], [address] Absolute Neut 10.1 X10 3/uL High 2.0-7.7 [facility] Comment on above: Performed By: #### L 100.0100, L501.5200, L500.4050, L501.2300 ####[facility] [address] [place], [address] Basophils/100 WBC (Bld) 0.5 % Normal 0-1 [facility] Comment on above: Performed By: #### L 100.0100, L501.5200, L500.4050, L501.2300 ####[facility] [address] [place], [address] Eosinophils/100 WBC (Bld) 1.1 % Normal 0-5 [facility] Comment on above: Performed By: #### L 100.0100, L501.5200, L500.4050, L501.2300 ####[facility] [address] [place], [address] Erythrocyte distribution width (RBC) [Ratio] 13.3 % Normal 11.6-14.6 [facility] Comment on above: Performed By: #### L 100.0100, L501.5200, L500.4050, L501.2300 ####[facility] [address] [place], [address] Hematocrit (Bld) [Volume fraction] 42.6 % Normal 40-54 [facility] Comment on above: Performed By: #### L 100.0100, L501.5200, L500.4050, L501.2300 ####[facility] [address] [place], [address] Hemoglobin (Bld) [Mass/Vol] 13.2 g/dL Normal 13.0-16.5 [facility] Comment on above: Performed By: #### L 100.0100, L501.5200, L500.4050, L501.2300 ####[facility] [address] [place], [address] IG% 0.400 Normal 0.0-0.9 [facility] Comment on above: Result Comment: IG% - Immature Granulocytes (promyelocytes, myelocytes andmetamyelocytes) > 1% indicates that a LEFT SHIFT is Present. Performed By: #### L 100.0100, L501.5200, L500.4050, L501.2300 ####[facility] [address] [place], [address] Lymphocytes/100 WBC (Bld) 12.3 % Low 19-41 [facility] Comment on above: Performed By: #### L 100.0100, L501.5200, L500.4050, L501.2300 ####[facility] [address] [place], [address] MCH (RBC) [Entitic mass] 27.3 pg Normal 27.0-32.0 [facility] Comment on above: Performed By: #### L 100.0100, L501.5200, L500.4050, L501.2300 ####[facility] [address] [place], [address] MCHC (RBC) [Mass/Vol] 31.0 g/dL Low 32-36 [facility] Comment on above: Performed By: #### L 100.0100, L501.5200, L500.4050, L501.2300 ####[facility] [address] [place], [address] MCV (RBC) [Entitic vol] 88.2 fL Normal 80-94 [facility] Comment on above: Performed By: #### L 100.0100, L501.5200, L500.4050, L501.2300 ####[facility] [address] [place], [address] Monocytes/100 WBC (Bld) 3.9 % Normal 0-10 [facility] Comment on above: Performed By: #### L 100.0100, L501.5200, L500.4050, L501.2300 ####[facility] [address] [place], [address] Neutrophils/100 WBC (Bld) 81.8 % High 47-70 [facility] Comment on above: Performed By: #### L 100.0100, L501.5200, L500.4050, L501.2300 ####[facility] [address] [place], [address] Nucleated RBC (Bld) [#/Vol] 0 10*3/uL Normal 0-5 [facility] Comment on above: Performed By: #### L 100.0100, L501.5200, L500.4050, L501.2300 ####[facility] [address] [place], [address] Platelet mean volume (Bld) [Entitic vol] 10.7 fL Normal 6.2-12.0 [facility] Comment on above: Performed By: #### L 100.0100, L501.5200, L500.4050, L501.2300 ####[facility] [address] [place], [address] Platelets (Bld) [#/Vol] 350 10*3/uL Normal 150-450 [facility] Comment on above: Performed By: #### L 100.0100, L501.5200, L500.4050, L501.2300 ####[facility] [address] [place], [address] RBC (Bld) [#/Vol] 4.83 10*6/uL Normal 4.6-6.2 [facility] Comment on above: Performed By: #### L 100.0100, L501.5200, L500.4050, L501.2300 ####[facility] [address] [place], [address] RDW SD 43.4 fl Normal 35.1-43.9 [facility] Comment on above: Performed By: #### L 100.0100, L501.5200, L500.4050, L501.2300 ####[facility] [address] [place], [address] WBC (Bld) [#/Vol] 12.3 10*3/uL High 4.4-11.0 [facility] Comment on above: Performed By: #### L 100.0100, L501.5200, L500.4050, L501.2300 ####[facility] [address] [place], [address] Chest 1 View (Portable)on Chest 1 View (Portable) Normal [facility] Comprehensive Metabolic Prof ilon 10-11-2024 Albumin [Mass/Vol] 3.0 g/dL Low 3.2-5.0 [facility] Comment on above: Performed By: #### L 100.0100, L501.5200, L500.4050, L501.2300 ####[facility] [address] [place], [address] Albumin/Globulin [Mass ratio] 0.7 {ratio} Low 0.9-2.4 [facility] Comment on above: Performed By: #### L 100.0100, L501.5200, L500.4050, L501.2300 ####[facility] [address] [place], [address] ALK P 93 U/L Normal 45-117 [facility] Comment on above: Performed By: #### L 100.0100, L501.5200, L500.4050, L501.2300 ####[facility] [address], [address] ALT [Catalytic activity/Vol] 20 U/L Normal 16-61 [facility] Comment on above: Performed By: #### L 100.0100, L501.5200, L500.4050, L501.2300 ####[facility] [address] [place], [address] AST [Catalytic activity/Vol] 13 U/L Low 15-37 [facility] Comment on above: Performed By: #### L 100.0100, L501.5200, L500.4050, L501.2300 ####[facility] [address] [place], [address] Bilirubin [Mass/Vol] 0.60 mg/dL Normal 0.20-1.[address] [facility] Comment on above: Result Comment: For patients on eltrombopag therapy, use of Dimension [place] TBIL is not recommended. Performed By: #### L 100.0100, L501.5200, L500.4050, L501.2300 ####[facility] [address] [place], [address] BUN/CRE 16.5 RATIO Normal 10-20 [facility] Comment on above: Performed By: #### L 100.0100, L501.5200, L500.4050, L501.2300 ####[facility] [address] [place], [address] CA,Total 9.0 mg/dL Normal 8.5-10.1 [facility] Comment on above: Performed By: #### L 100.0100, L501.5200, L500.4050, L501.2300 ####[facility] [address] [place], [address] Chloride [Moles/Vol] 99 mmol/L Normal 98-[address] [facility] Comment on above: Performed By: #### L 100.0100, L501.5200, L500.4050, L501.2300 ####[facility] [address] [place], [address] CO2 [Moles/Vol] 28.0 mmol/L Normal 21.0-32.0 [facility] Comment on above: Performed By: #### L 100.0100, L501.5200, L500.4050, L501.2300 ####[facility] [address] [place], [address] Creatinine [Mass/Vol] 1.39 mg/dL High 0.70-1.30 [facility] Comment on above: Result Comment: The validity of the calculated GFR GFRAA in patients over70 years has not been determined. Clinical correlation isessential. Performed By: #### L 100.0100, L501.5200, L500.4050, L501.2300 ####[facility] [address] [place], [address] ECRCL 71.00 ml/min Normal [facility] Comment on above: Performed By: #### L 100.0100, L501.5200, L500.4050, L501.2300 ####[facility] [address] [place], [address] EST GFR - AA 69 mL/min Normal >60 [facility] Comment on above: Result Comment: Afri can Egyptian GFR Calc Performed By: #### L 100.0100, L501.5200, L500.4050, L501.2300 ####[facility] [address] [place], [address] GAP 8 Normal 5-15 [facility] Comment on above: Performed By: #### L 100.0100, L501.5200, L500.4050, L501.2300 ####[facility] [address] [place], [address] GFR/1.73 sq M.predicted among non-blacks MDRD (S/P/Bld) [Vol rate/Area] 57 mL/min/{1.73_m2} Low >60 [facility] Comment on above: Result Comment: Non- GFR Calc Performed By: #### L 100.0100, L501.5200, L500.4050, L501.2300 ####[facility] [address] [place], [address] Globulin (S) [Mass/Vol] 4.3 g/dL High 2.2-4.2 [facility] Comment on above: Performed By: #### L 100.0100, L501.5200, L500.4050, L501.2300 ####[facility] [address] [place], [address] Glucose [Mass/Vol] 226 mg/dL High 74-106 [facility] Comment on above: Result Comment: Gluc ose result greater than or equal to 200 mg/dLsuggests DIABETES MELLITUS per A.D.A. criteria. Performed By: #### L 100.0100, L501.5200, L500.4050, L501.2300 ####[facility] [address] [place], [address] Potassium [Moles/Vol] 3.7 mmol/L Normal 3.5-5.1 [facility] Comment on above: Performed By: #### L 100.0100, L501.5200, L500.4050, L501.2300 ####[facility] [address] [place], [address] Sodium [Moles/Vol] 135 mmol/L Low 136-145 [facility] Comment on above: Performed By: #### L 100.0100, L501.5200, L500.4050, L501.2300 ####[facility] [address] [place], [address] T PROT 7.3 g/dL Normal 6.4-8.2 [facility] Comment on above: Performed By: #### L 100.0100, L501.5200, L500.4050, L501.2300 ####[facility] [address] [place], [address] Urea nitrogen [Mass/Vol] 23 mg/dL High 7-18 [facility] Comment on above: Performed By: #### L 100.0100, L501.5200, L500.4050, L501.2300 ####[facility] [address] [place], [address] Gram Stainon 10-11-2024 GS SENT LABEL TO [facility] FO R COLLECTION Acceptable Specimen? Yes (<25 Epithelial cells per/lpf) Gram Stain Rare White Blood Cells Rare Epithelial cells 3+ Gram positive cocci in chains 1+ Gram negative rods Normal [facility] Comment on above: Performed By: #### M 100.2000, M100.2400 ####[facility] [address] [place], [address] Hemoglobin A1con 10-11-2024 HbA1c (Bld) [Mass fraction] 9.5 % High 3.8-5.6 [facility] Comment on above: Result Comment: Norm al < 5.7 % Prediabetic 5.7 - 6.4 % Diabetic >or= 6.5 % Please note range changes. Performed By: #### L 501.9520, L501.9985, L500.4100 ####[facility] [address] [place], [address] L501.4020on 10-11-2024 TROPONIN-I HS 99 pg/mL High 3.0-78.0 [facility] Comment on above: Order Comment: 'TROP ' Serial specimen #1, #2 or #3: 33 Result Comment: Colette antunez Note: New Test Units and Gender Specific Reference Ranges. For more information see Policy Stat Procedure [place] High Sensitivity Troponin (TNIH) and attachments. Performed By: #### L 501.4020 ####[facility] [address] [place], [address] Lipid Profileon 10-11-2024 HDL Normal [facility] Comment on above: Result Comment: DUPL ICATE ORDER.The drugs N-Acetylcysteine and Metamizole may falselydepress this assay. Performed By: #### L 500.4100 ####[facility] [address] [place], [address] TRIG Normal [facility] Comment on above: Result Comment: DUPL ICATE ORDER.The drugs N-Acetylcysteine and Metamizole may falselydepress this assay. Performed By: #### L 500.4100 ####[facility] [address] [place], [address] Cholesterol [Mass/Vol] 146 mg/dL Normal 200 [facility] Comment on above: Result Comment: <200 mg/dL Desirable 200-240 mg/dL Borderline >240 mg/dL High Risk Performed By: #### L 501.9520, L501.9985, L500.4100 ####[facility] [address] [place], [address] Cholesterol in HDL [Mass/Vol] 33 mg/dL Low [facility] Comment on above: Result Comment: The drugs N-Acetylcysteine and Metamizole may falselydepress this assay. Reference Range HDL <40 mg/dL Low HDL Cholesterol HDL >or= 60 mg/dL High HDL Cholesterol Performed By: #### L 501.9520, L501.9985, L500.4100 ####[facility] [address] [place], [address] Cholesterol in LDL [Mass/Vol] 89 mg/dL Normal 0-130 [facility] Comment on above: Performed By: #### L 501.9520, L501.9985, L500.4100 ####[facility] [address] [place], [address] Cholesterol in VLDL [Mass/Vol] 24 mg/dL Normal 5-40 [facility] Comment on above: Performed By: #### L 501.9520, L501.9985, L500.4100 ####[facility] [address] [place], [address] Triglyceride [Mass/Vol] 119 mg/dL Normal [facility] Comment on above: Result Comment: The drugs N-Acetylcysteine and Metamizole may falselydepress this assay.Serum Triglycerides Reference Interval Normal <150 mg/dL Borderline high 150 - 199 mg/dL High 200 - 499 mg/dL Very High > or = 500 mg/dL Performed By: #### L 501.9520, L501.9985, L500.4100 ####[facility] [address] [place], [address] CHOL Normal 200 [facility] Comment on above: Result Comment: DUPL ICATE ORDER. Performed By: #### L 500.4100 ####[facility] [address] [place], [address] LDL Normal 0-130 [facility] Comment on above: Result Comment: DUPL ICATE ORDER. Performed By: #### L 500.4100 ####[facility] [address] [place], [address] VLDL Normal 5-40 [facility] Comment on above: Result Comment: DUPL ICATE ORDER. Performed By: #### L 500.4100 ####[facility] [address] [place], [address] Magnesiumon 10-11-2024 Magnesium [Mass/Vol] 2.0 mg/dL Normal 1.6-2.[address] [facility] Comment on above: Performed By: #### L 100.0100, L501.5200, L500.4050, L501.2300 ####[facility] [address] [place], [address] Phosphoruson 10-11-2024 Phosphate [Mass/Vol] 2.8 mg/dL Normal 2.5-4.[address] [facility] Comment on above: Performed By: #### L 100.0100, L501.5200, L500.4050, L501.2300 ####[facility] [address] [place], [address] RESPIRATORY PANEL MOLECULARo n 10-11-2024 RP PANEL Normal [facility] Comment on above: Performed By: #### M 100.638 ####[facility] [address] [place], [address] Thyroid Stim Hormone (TSH)on 10-11-2024 TSH 1.590 uIU/mL Normal 0.358-3.740 [facility] Comment on above: Performed By: #### L 501.9520, L501.9985, L500.4100 ####[facility] [address] [place], [address] 12 Lead EKGon 10-10-2024 12 Lead EKG Normal [facility] BNP,B-Type NATRIURETIC PEPTI [place] 10-10-2024 Natriuretic peptide B (Bld) [Mass/Vol] 261.1 pg/mL High 0-100 [facility] Comment on above: Performed By: #### L 100.0100, L500.2500, L300.4310, L503.6005, L300.3900, L501.5425, L503.6620 ####[facility] [address] [place], [address] Basic Metabolic Profile (BMP )on 10-10-2024 BUN/CRE 14.7 RATIO Normal 10-20 [facility] Comment on above: Order Comment: 1Y Performed By: #### L 100.0100, L500.2500, L300.4310, L503.6005, L300.3900, L501.5425, L503.6620 ####[facility] [address] [place], [address] CA,Total 8.9 mg/dL Normal 8.5-10.1 [facility] Comment on above: Order Comment: 1Y Performed By: #### L 100.0100, L500.2500, L300.4310, L503.6005, L300.3900, L501.5425, L503.6620 ####[facility] [address] [place], [address] Chloride [Moles/Vol] 105 mmol/L Normal 98-[address] [facility] Comment on above: Order Comment: 1Y Performed By: #### L 100.0100, L500.2500, L300.4310, L503.6005, L300.3900, L501.5425, L503.6620 ####[facility] [address] [place], [address] CO2 [Moles/Vol] 28.0 mmol/L Normal 21.0-32.0 [facility] Comment on above: Order Comment: 1Y Performed By: #### L 100.0100, L500.2500, L300.4310, L503.6005, L300.3900, L501.5425, L503.6620 ####[facility] [address] [place], [address] Creatinine [Mass/Vol] 1.09 mg/dL Normal 0.70-1.30 [facility] Comment on above: Order Comment: 1Y Result Comment: The validity of the calculated GFR GFRAA in patients over70 years has not been determined. Clinical correlation isessential. Performed By: #### L 100.0100, L500.2500, L300.4310, L503.6005, L300.3900, L501.5425, L503.6620 ####[facility] [address] [place], [address] ECRCL 92.66 ml/min Normal [facility] Comment on above: Order Comment: 1Y Performed By: #### L 100.0100, L500.2500, L300.4310, L503.6005, L300.3900, L501.5425, L503.6620 ####[facility] [address] [place], [address] EST GFR - AA 91 mL/min Normal >60 [facility] Comment on above: Order Comment: 1Y Result Comment: Afri can Egyptian GFR Calc Performed By: #### L 100.0100, L500.2500, L300.4310, L503.6005, L300.3900, L501.5425, L503.6620 ####[facility] [address] [place], [address] GAP 6 Normal 5-15 [facility] Comment on above: Order Comment: 1Y Performed By: #### L 100.0100, L500.2500, L300.4310, L503.6005, L300.3900, L501.5425, L503.6620 ####[facility] [address] [place], [place], [phone](688) GFR/1.73 sq M.predicted among non-blacks MDRD (S/P/Bld) [Vol rate/Area] 75 mL/min/{1.73_m2} Normal >60 [facility] Comment on above: Order Comment: 1Y Result Comment: Non- GFR Calc Performed By: #### L 100.0100, L500.2500, L300.4310, L503.6005, L300.3900, L501.5425, L503.6620 ####[facility] [address] [place], [place], [phone](050) Glucose [Mass/Vol] 160 mg/dL High 74-106 [facility] Comment on above: Order Comment: 1Y Result Comment: Fast ing Glucose result greater than or equal to 126 mg/dLsuggests DIABETES MELLITUS per A.D.A. criteria. Performed By: #### L 100.0100, L500.2500, L300.4310, L503.6005, L300.3900, L501.5425, L503.6620 ####[facility] [address] [place], [address] Potassium [Moles/Vol] 3.7 mmol/L Normal 3.5-5.1 [facility] Comment on above: Order Comment: 1Y Performed By: #### L 100.0100, L500.2500, L300.4310, L503.6005, L300.3900, L501.5425, L503.6620 ####[facility] [address] [place], [address] Sodium [Moles/Vol] 138 mmol/L Normal 136-145 [facility] Comment on above: Order Comment: 1Y Performed By: #### L 100.0100, L500.2500, L300.4310, L503.6005, L300.3900, L501.5425, L503.6620 ####[facility] [address] [place], [place], [phone] Urea nitrogen [Mass/Vol] 16 mg/dL Normal 7-18 [facility] Comment on above: Order Comment: 1Y Performed By: #### L 100.0100, L500.2500, L300.4310, L503.6005, L300.3900, L501.5425, L503.6620 ####[facility] [address] [place], [address] CBC W/Diff, Automatedon 11-2 Absolute Lymph 1.94 X10 3/uL Normal 0.83-4.51 [facility] Comment on above: Performed By: #### L 100.0100, L500.2500, L300.4310, L503.6005, L300.3900, L501.5425, L503.6620 ####[facility] [address] [place], [address] Absolute Neut 8.6 X10 3/uL High 2.0-7.7 [facility] Comment on above: Performed By: #### L 100.0100, L500.2500, L300.4310, L503.6005, L300.3900, L501.5425, L503.6620 ####[facility] [address] [place], [address] Basophils/100 WBC (Bld) 0.4 % Normal 0-1 [facility] Comment on above: Performed By: #### L 100.0100, L500.2500, L300.4310, L503.6005, L300.3900, L501.5425, L503.6620 ####[facility] [address] [place], [address] Eosinophils/100 WBC (Bld) 0.6 % Normal 0-5 [facility] Comment on above: Performed By: #### L 100.0100, L500.2500, L300.4310, L503.6005, L300.3900, L501.5425, L503.6620 ####[facility] [address] [place], [address] Erythrocyte distribution width (RBC) [Ratio] 13.4 % Normal 11.6-14.6 [facility] Comment on above: Performed By: #### L 100.0100, L500.2500, L300.4310, L503.6005, L300.3900, L501.5425, L503.6620 ####[facility] [address] [place], [address] Hematocrit (Bld) [Volume fraction] 39.2 % Low 40-54 [facility] Comment on above: Performed By: #### L 100.0100, L500.2500, L300.4310, L503.6005, L300.3900, L501.5425, L503.6620 ####[facility] [address] [place], [address] Hemoglobin (Bld) [Mass/Vol] 12.6 g/dL Low 13.0-16.5 [facility] Comment on above: Performed By: #### L 100.0100, L500.2500, L300.4310, L503.6005, L300.3900, L501.5425, L503.6620 ####[facility] [address] [place], [address] IG% 0.300 Normal 0.0-0.9 [facility] Comment on above: Result Comment: IG% - Immature Granulocytes (promyelocytes, myelocytes andmetamyelocytes) > 1% indicates that a LEFT SHIFT is Present. Performed By: #### L 100.0100, L500.2500, L300.4310, L503.6005, L300.3900, L501.5425, L503.6620 ####[facility] [address] [place], [address] Lymphocytes/100 WBC (Bld) 16.3 % Low 19-41 [facility] Comment on above: Performed By: #### L 100.0100, L500.2500, L300.4310, L503.6005, L300.3900, L501.5425, L503.6620 ####[facility] [address] [place], [address] MCH (RBC) [Entitic mass] 27.8 pg Normal 27.0-32.0 [facility] Comment on above: Performed By: #### L 100.0100, L500.2500, L300.4310, L503.6005, L300.3900, L501.5425, L503.6620 ####[facility] [address] [place], [address] MCHC (RBC) [Mass/Vol] 32.1 g/dL Normal 32-36 [facility] Comment on above: Performed By: #### L 100.0100, L500.2500, L300.4310, L503.6005, L300.3900, L501.5425, L503.6620 ####[facility] [address] [place], [address] MCV (RBC) [Entitic vol] 86.3 fL Normal 80-94 [facility] Comment on above: Performed By: #### L 100.0100, L500.2500, L300.4310, L503.6005, L300.3900, L501.5425, L503.6620 ####[facility] [address] [place], [address] Monocytes/100 WBC (Bld) 10.3 % High 0-10 [facility] Comment on above: Performed By: #### L 100.0100, L500.2500, L300.4310, L503.6005, L300.3900, L501.5425, L503.6620 ####[facility] [address] [place], [address] Neutrophils/100 WBC (Bld) 72.1 % High 47-70 [facility] Comment on above: Performed By: #### L 100.0100, L500.2500, L300.4310, L503.6005, L300.3900, L501.5425, L503.6620 ####[facility] [address] [place], [address] Nucleated RBC (Bld) [#/Vol] 0 10*3/uL Normal 0-5 [facility] Comment on above: Performed By: #### L 100.0100, L500.2500, L300.4310, L503.6005, L300.3900, L501.5425, L503.6620 ####[facility] [address] [place], [address] Platelet mean volume (Bld) [Entitic vol] 10.3 fL Normal 6.2-12.0 [facility] Comment on above: Performed By: #### L 100.0100, L500.2500, L300.4310, L503.6005, L300.3900, L501.5425, L503.6620 ####[facility] [address] [place], [address] Platelets (Bld) [#/Vol] 320 10*3/uL Normal 150-450 [facility] Comment on above: Performed By: #### L 100.0100, L500.2500, L300.4310, L503.6005, L300.3900, L501.5425, L503.6620 ####[facility] [address] [place], [address] RBC (Bld) [#/Vol] 4.54 10*6/uL Low 4.6-6.2 [facility] Comment on above: Performed By: #### L 100.0100, L500.2500, L300.4310, L503.6005, L300.3900, L501.5425, L503.6620 ####[facility] [address] [place], [address] RDW SD 41.7 fl Normal 35.1-43.9 [facility] Comment on above: Performed By: #### L 100.0100, L500.2500, L300.4310, L503.6005, L300.3900, L501.5425, L503.6620 ####[facility] [address] [place], [address] WBC (Bld) [#/Vol] 11.9 10*3/uL High 4.4-11.0 [facility] Comment on above: Performed By: #### L 100.0100, L500.2500, L300.4310, L503.6005, L300.3900, L501.5425, L503.6620 ####[facility] [address] [place], [place], [address] CTA Chest W/WO Contraston CTA Chest W/WO Contrast Normal [facility] Emergency Department Summary on 10-10-2024 Emergency Department Summary Normal [facility] H AND P Exam - Hospitaliston 10-10-2024 H&P Exam - Hospitalist Normal [facility] L501.4020on 10-10-2024 TROPONIN-I HS 105 pg/mL High 3.0-78.0 [facility] Comment on above: Result Comment: Plea se Note: New Test Units and Gender Specific Reference Ranges. For more information see Policy Stat Procedure [place] High Sensitivity Troponin (TNIH) and attachments. Performed By: #### L 501.4020 ####[facility] [address] [place], [place], [address] L501.5425on 10-10-2024 TROPONIN-I HS 112 pg/mL High 3.0-78.0 [facility] Comment on above: Order Comment: 1Y Result Comment: Plea se Note: New Test Units and Gender Specific Reference Ranges. For more information see Policy Stat Procedure [place] High Sensitivity Troponin (TNIH) and attachments. Performed By: #### L 100.0100, L500.2500, L300.4310, L503.6005, L300.3900, L501.5425, L503.6620 ####[facility] [address] [place], [address] Lactic Acidon 10-10-2024 Lactate [Moles/Vol] 1.2 mmol/L Normal 0.4-1.9 [facility] Comment on above: Order Comment: Y Performed By: #### L 100.0100, L500.2500, L300.4310, L503.6005, L300.3900, L501.5425, L503.6620 ####[facility] [address] [place], [address] Partial Thromboplast Timeon 10-10-2024 aPTT Coag (Bld) [Time] 28.5 s Normal 24.1-36.2 [facility] Comment on above: Performed By: #### L 100.0100, L500.2500, L300.4310, L503.6005, L300.3900, L501.5425, L503.6620 ####[facility] [address] [place], [address] Prothrombin Time w/INRon INR Coag (PPP) [Relative time] 1.3 {INR} Normal [facility] Comment on above: Performed By: #### L 100.0100, L500.2500, L300.4310, L503.6005, L300.3900, L501.5425, L503.6620 ####[facility] [address] [place], [address] PT Coag (PPP) [Time] 15.7 s High 11.7-14.[address] [facility] Comment on above: Performed By: #### L 100.0100, L500.2500, L300.4310, L503.6005, L300.3900, L501.5425, L503.6620 ####[facility] [address] [place], [address] 12 Lead EKGon 09-25-2024 12 Lead EKG Normal [facility] BNP,B-Type NATRIURETIC PEPTI Willow 09-25-2024 Natriuretic peptide B (Bld) [Mass/Vol] 307.2 pg/mL High 0-100 [facility] Comment on above: Performed By: #### L 503.6620, L501.4020, L300.8000, L100.0100, L500.2500 ####[facility] [address] [place], [address] Basic Metabolic Profile (BMP )on 09-25-2024 BUN/CRE 20.7 RATIO High 10-20 [facility] Comment on above: Order Comment: 'TROP ' Serial specimen #1, #2 or #3: 1 Performed By: #### L 503.6620, L501.4020, L300.8000, L100.0100, L500.2500 ####[facility] [address] [place], [address] CA,Total 8.8 mg/dL Normal 8.5-10.1 [facility] Comment on above: Order Comment: 'TROP ' Serial specimen #1, #2 or #3: 1 Performed By: #### L 503.6620, L501.4020, L300.8000, L100.0100, L500.2500 ####[facility] [address] [place], [address] Chloride [Moles/Vol] 108 mmol/L High 98-[address] [facility] Comment on above: Order Comment: 'TROP ' Serial specimen #1, #2 or #3: 1 Performed By: #### L 503.6620, L501.4020, L300.8000, L100.0100, L500.2500 ####[facility] [address] [place], [address] CO2 [Moles/Vol] 29.0 mmol/L Normal 21.0-32.0 [facility] Comment on above: Order Comment: 'TROP ' Serial specimen #1, #2 or #3: 1 Performed By: #### L 503.6620, L501.4020, L300.8000, L100.0100, L500.2500 ####[facility] [address] [place], [address] Creatinine [Mass/Vol] 1.11 mg/dL Normal 0.70-1.30 [facility] Comment on above: Order Comment: 'TROP ' Serial specimen #1, #2 or #3: 1 Result Comment: The validity of the calculated GFR GFRAA in patients over70 years has not been determined. Clinical correlation isessential. Performed By: #### L 503.6620, L501.4020, L300.8000, L100.0100, L500.2500 ####[facility] [address] [place], [address] ECRCL 93.07 ml/min Normal [facility] Comment on above: Order Comment: 'TROP ' Serial specimen #1, #2 or #3: 1 Performed By: #### L 503.6620, L501.4020, L300.8000, L100.0100, L500.2500 ####[facility] [address] [place], [address] EST GFR - AA 89 mL/min Normal >60 [facility] Comment on above: Order Comment: 'TROP ' Serial specimen #1, #2 or #3: 1 Result Comment: Afri can Egyptian GFR Calc Performed By: #### L 503.6620, L501.4020, L300.8000, L100.0100, L500.2500 ####[facility] [address] [place], [address] GAP 3 Low 5-15 [facility] Comment on above: Order Comment: 'TROP ' Serial specimen #1, #2 or #3: 1 Performed By: #### L 503.6620, L501.4020, L300.8000, L100.0100, L500.2500 ####[facility] [address] [place], [address] GFR/1.73 sq M.predicted among non-blacks MDRD (S/P/Bld) [Vol rate/Area] 74 mL/min/{1.73_m2} Normal >60 [facility] Comment on above: Order Comment: 'TROP ' Serial specimen #1, #2 or #3: 1 Result Comment: Non- GFR Calc Performed By: #### L 503.6620, L501.4020, L300.8000, L100.0100, L500.2500 ####[facility] [address] [place], [address] Glucose [Mass/Vol] 128 mg/dL High 74-106 [facility] Comment on above: Order Comment: 'TROP ' Serial specimen #1, #2 or #3: 1 Result Comment: Fast ing Glucose result greater than or equal to 126 mg/dLsuggests DIABETES MELLITUS per A.D.A. criteria. Performed By: #### L 503.6620, L501.4020, L300.8000, L100.0100, L500.2500 ####[facility] [address] [place], [address] Potassium [Moles/Vol] 4.5 mmol/L Normal 3.5-5.1 [facility] Comment on above: Order Comment: 'TROP ' Serial specimen #1, #2 or #3: 1 Performed By: #### L 503.6620, L501.4020, L300.8000, L100.0100, L500.2500 ####[facility] [address] [place], [address] Sodium [Moles/Vol] 140 mmol/L Normal 136-145 [facility] Comment on above: Order Comment: 'TROP ' Serial specimen #1, #2 or #3: 1 Performed By: #### L 503.6620, L501.4020, L300.8000, L100.0100, L500.2500 ####[facility] [address] [place], [address] Urea nitrogen [Mass/Vol] 23 mg/dL High 7-18 [facility] Comment on above: Order Comment: 'TROP ' Serial specimen #1, #2 or #3: 1 Performed By: #### L 503.6620, L501.4020, L300.8000, L100.0100, L500.2500 ####[facility] [address] [place], [address] CBC W/Diff, Automatedon 11-0 7-2023 Absolute Lymph 3.00 X10 3/uL Normal 0.83-4.51 [facility] Comment on above: Performed By: #### L 503.6620, L501.4020, L300.8000, L100.0100, L500.2500 ####[facility] [address] [place], [address] Absolute Neut 7.8 X10 3/uL High 2.0-7.7 [facility] Comment on above: Performed By: #### L 503.6620, L501.4020, L300.8000, L100.0100, L500.2500 ####[facility] [address] [place], [address] Basophils/100 WBC (Bld) 0.5 % Normal 0-1 [facility] Comment on above: Performed By: #### L 503.6620, L501.4020, L300.8000, L100.0100, L500.2500 ####[facility] [address] [place], [address] Eosinophils/100 WBC (Bld) 2.7 % Normal 0-5 [facility] Comment on above: Performed By: #### L 503.6620, L501.4020, L300.8000, L100.0100, L500.2500 ####[facility] [address] [place], [address] Erythrocyte distribution width (RBC) [Ratio] 13.2 % Normal 11.6-14.6 [facility] Comment on above: Performed By: #### L 503.6620, L501.4020, L300.8000, L100.0100, L500.2500 ####[facility] [address] [place], [address] Hematocrit (Bld) [Volume fraction] 41.5 % Normal 40-54 [facility] Comment on above: Performed By: #### L 503.6620, L501.4020, L300.8000, L100.0100, L500.2500 ####[facility] [address] [place], [address] Hemoglobin (Bld) [Mass/Vol] 13.4 g/dL Normal 13.0-16.5 [facility] Comment on above: Performed By: #### L 503.6620, L501.4020, L300.8000, L100.0100, L500.2500 ####[facility] [address] [place], [address] IG% 0.600 Normal 0.0-0.9 [facility] Comment on above: Result Comment: IG% - Immature Granulocytes (promyelocytes, myelocytes andmetamyelocytes) > 1% indicates that a LEFT SHIFT is Present. Performed By: #### L 503.6620, L501.4020, L300.8000, L100.0100, L500.2500 ####[facility] [address] [place], [address] Lymphocytes/100 WBC (Bld) 24.3 % Normal 19-41 [facility] Comment on above: Performed By: #### L 503.6620, L501.4020, L300.8000, L100.0100, L500.2500 ####[facility] [address] [place], [address] MCH (RBC) [Entitic mass] 28.3 pg Normal 27.0-32.0 [facility] Comment on above: Performed By: #### L 503.6620, L501.4020, L300.8000, L100.0100, L500.2500 ####[facility] [address] [place], [address] MCHC (RBC) [Mass/Vol] 32.3 g/dL Normal 32-36 [facility] Comment on above: Performed By: #### L 503.6620, L501.4020, L300.8000, L100.0100, L500.2500 ####[facility] [address] [place], [address] MCV (RBC) [Entitic vol] 87.6 fL Normal 80-94 [facility] Comment on above: Performed By: #### L 503.6620, L501.4020, L300.8000, L100.0100, L500.2500 ####[facility] [address] [place], [address] Monocytes/100 WBC (Bld) 8.8 % Normal 0-10 [facility] Comment on above: Performed By: #### L 503.6620, L501.4020, L300.8000, L100.0100, L500.2500 ####[facility] [address] [place], [address] Neutrophils/100 WBC (Bld) 63.1 % Normal 47-70 [facility] Comment on above: Performed By: #### L 503.6620, L501.4020, L300.8000, L100.0100, L500.2500 ####[facility] [address] [place], [address] Nucleated RBC (Bld) [#/Vol] 0 10*3/uL Normal 0-5 [facility] Comment on above: Performed By: #### L 503.6620, L501.4020, L300.8000, L100.0100, L500.2500 ####[facility] [address] [place], [address] Platelet mean volume (Bld) [Entitic vol] 10.1 fL Normal 6.2-12.0 [facility] Comment on above: Performed By: #### L 503.6620, L501.4020, L300.8000, L100.0100, L500.2500 ####[facility] [address] [place], [address] Platelets (Bld) [#/Vol] 330 10*3/uL Normal 150-450 [facility] Comment on above: Performed By: #### L 503.6620, L501.4020, L300.8000, L100.0100, L500.2500 ####[facility] [address] [place], [address] RBC (Bld) [#/Vol] 4.74 10*6/uL Normal 4.6-6.2 [facility] Comment on above: Performed By: #### L 503.6620, L501.4020, L300.8000, L100.0100, L500.2500 ####[facility] [address] [place], [address] RDW SD 42.1 fl Normal 35.1-43.9 [facility] Comment on above: Performed By: #### L 503.6620, L501.4020, L300.8000, L100.0100, L500.2500 ####[facility] [address] [place], [address] WBC (Bld) [#/Vol] 12.3 10*3/uL High 4.4-11.0 [facility] Comment on above: Performed By: #### L 503.6620, L501.4020, L300.8000, L100.0100, L500.2500 ####[facility] [address] [place], [address] CTA Chest W/WO Contraston CTA Chest W/WO Contrast Normal [facility] Chest PA and Lateralon 09-25 Chest PA and Lateral Normal [facility] D-Dimer Quantitative (DVT/PE )on 09-25-2024 D-DIMER QUANT 0.80 FEU/ug/m Invalid Interpretation Code 0.27-0.49 [facility] Comment on above: Result Comment: D-Di olvin ELEVATED (>0.49): Additional studies and clinicalassessments are indicated to conclude diagnosis of:Deep Vein Thrombosis (DVT) or Pulmonary Embolism (PE)RESULTS CALLED TO [place] 09/25/24 1751 Roya Quiñones.REPORT READ BACK BY SAME. Performed By: #### L 503.6620, L501.4020, L300.8000, L100.0100, L500.2500 ####[facility] [address] [place], [address] Emergency Department Summary on 09-25-2024 Emergency Department Summary Normal [facility] L501.4020on 09-25-2024 TROPONIN-I HS 85 pg/mL High 3.0-78.0 [facility] Comment on above: Order Comment: 'TROP ' Serial specimen #1, #2 or #3: 2 Result Comment: Plea se Note: New Test Units and Gender Specific Reference Ranges. For more information see Policy Stat Procedure [place] High Sensitivity Troponin (TNIH) and attachments. Performed By: #### L 501.4020 ####[facility] [address] [place], [address] TROPONIN-I HS 92 pg/mL High 3.0-78.0 [facility] Comment on above: Order Comment: 'TROP ' Serial specimen #1, #2 or #3: 1 Result Comment: Plea se Note: New Test Units and Gender Specific Reference Ranges. For more information see Policy Stat Procedure [place] High Sensitivity Troponin (TNIH) and attachments. Performed By: #### L 503.6620, L501.4020, L300.8000, L100.0100, L500.2500 ####[facility] [address] [place], [address] M100.678on 09-25-2024 M100.678 Pending SARS-CoV-2 (COVID 19) Negative INFLUENZA A Negative INFLUENZA B Negative RSV PCR Negative Normal [facility] Comment on above: Performed By: #### M 100.678 ####[facility] [address] [place], [address] Venous Duplex Imag/Cj Extre mon 09-25-2024 Venous Duplex Imag/Cj Extrem Normal [facility] CNOVon 03-17-2024 CNOV Office Visit (UCWSTR ) LATONYA ELDER ([id number]) 1970 M Date Time Provider Department 03/17/24 7:30 AM RAD RENEE WS During your visit today, we recorded the following information about you: Temperature Pulse Respiration Blood pressure 97.2 degrees 72/minute 16/minute 162/90 Weight 107.9 kg Rad Renee APRN.GENERAL TELLER 03/17/2024 7:43 AM Signed This note was created using [employer]. Subjective Latonya Elder is a 53 year [...] Date Reviewed: 03/17/2024 Reviewed by: Rad Renee APRN.GENERAL TELLER - Fully Assessed Reason for Visit: Eye Problem [43] Cmt: left eye x 2 days, drainage and matting Primary Visit Diagnosis:Bacterial conjunctivitis [H10.9] Order(s):trimethoprim- polymyxin (POLYTRIM) 10,000 unit- 1 mg/mL ophthalmic solutionUse 1 Drop in the left eye four times daily.Disp: 10 mLRfl: 0 Prescriptions as of 03/17/2024 - trimethoprim-polymyxin (POLYTRIM) 10,000 unit- 1 mg/mL ophthalmic solution Use 1 Drop in the left eye four times daily. - lisinopril (ZESTRIL, PRINIVIL) 20 mg tablet - albuterol HFA (VENTOLIN HFA) 90 mcg/actuation inhaler Inhale 2 Puffs as instructed every 4 hours as needed for Wheezing/Shortness of Breath. - Brompheniramine-Pseudo eph-DM (BROMFED DM) 2-30-10 mg/5 mL syrup Take 5 mL by mouth four times daily as needed (more content not included)... Normal [facility] Basophil percentageOrdered B y: Anupam Zuleta on 02-08-2024 Hemoglobin (Bld) [Mass/Vol] 15.7 g/dL 13.0-16.5 [facility] WBC (Bld) [#/Vol] 10.7 10*3/uL 4.4-11.0 [facility] Determination of erythrocyte mean corpuscular volume (MCV)Ordered By: Anupam Zuleta on 02-08-2024 MCV (RBC) [Entitic vol] 89.9 fL 80-94 [facility] Erythrocyte distribution wid th ratioOrdered By: Anupam Zuleta on 02-08-2024 Erythrocyte distribution width (RBC) [Ratio] 13.7 % 11.6-14.6 [facility] Erythrocyte distribution wid th standard deviationOrdered By: Anupam Zuleta on 02-08-2024 Erythrocyte distribution width (RBC) [Entitic vol] 44.6 fL 35.1-43.9 [facility] Hematocrit Auto (Bld) [Volum e fraction]Ordered By: Anupam Zuleta on 02-08-2024 Hematocrit (Bld) [Volume fraction] 48.3 % 40-54 [facility] Laboratory - Hematology and Cell countsOrdered By: Anupam Zuleta on 02-08-2024 MCH (RBC) [Entitic mass] 29.2 pg 27.0-32.0 [facility] MCHC (RBC) [Mass/Vol] 32.5 g/dL 32-36 [facility] Platelet mean volume (Bld) [Entitic vol] 10.4 fL 6.2-12.0 [facility] Platelets (Bld) [#/Vol] 270 10*3/uL 150-450 [facility] RBC Auto (Bld) [#/Vol]Ordere d By: Anupam Zuleta on 02-08-2024 RBC (Bld) [#/Vol] 5.37 10*6/uL 4.6-6.2 [facility] Gram stain for investigation of transfusion reactionOrdered By: Anupam Zuleta on 12-31-2023 Microscopic observation Gram stain Nom (Unsp spec) [facility] Microscopic observation Gram stain Nom (Unsp spec) [facility] Microbial respiratory cultur eOrdered By: Anupam Zuleta on 12-31-2023 Bacteria identified Respiratory culture Nom (Unsp spec) or Staphylococcus aureus isolated. [facility] Bacteria identified Respiratory culture Nom (Unsp spec) or Staphylococcus aureus isolated. [facility] Basophil percentageOrdered B y: Luis Villeda on 12-26-2023 Bilirubin [Mass/Vol] 0.90 mg/dL 0.20-1.[address] [facility] Comment on above: For patients on eltr ombopag therapy, use of Dimension [place] TBIL is not recommended. Chloride [Moles/Vol] 107 mmol/L 98-[address] [facility] Cholesterol [Mass/Vol] 178 mg/dL <200 [facility] Comment on above: <200 mg/dL Desirable 200-240 mg/dL Borderline >240 mg/dL High Risk Glucose [Mass/Vol] 76 mg/dL 74-106 [facility] Hemoglobin (Bld) [Mass/Vol] 15.0 g/dL 13.0-16.5 [facility] Potassium [Moles/Vol] 3.5 mmol/L 3.5-5.1 [facility] Protein [Mass/Vol] 6.9 g/dL 6.4-8.2 [facility] Sodium [Moles/Vol] 138 mmol/L 136-145 [facility] Triglyceride [Mass/Vol] 140 mg/dL <199 [facility] Comment on above: The drugs N-Acetylcy steine and Metamizole may falsely depress this assay.Serum Triglycerides Reference Interval Normal <150 mg/dL Borderline high 150 - 199 mg/dL High 200 - 499 mg/dL Very High > or = 500 mg/dL WBC (Bld) [#/Vol] 11.5 10*3/uL 4.4-11.0 [facility] Determination of erythrocyte mean corpuscular volume (MCV)Ordered By: Luis Villeda on 12-26-2023 MCV (RBC) [Entitic vol] 88.0 fL 80-94 [facility] Erythrocyte distribution wid th ratioOrdered By: Luiskaron Villeda on 12-26-2023 Erythrocyte distribution width (RBC) [Ratio] 13.6 % 11.6-14.6 [facility] Erythrocyte distribution wid th standard deviationOrdered By: Luiskaron Villeda on 12-26-2023 Erythrocyte distribution width (RBC) [Entitic vol] 43.9 fL 35.1-43.9 [facility] Hematocrit Auto (Bld) [Volum e fraction]Ordered By: Luis Villeda on 12-26-2023 Hematocrit (Bld) [Volume fraction] 44.8 % 40-54 [facility] Laboratory - Chemistry and C hemistry - challengeOrdered By: Luis Villeda on 12-26-2023 Albumin/Globulin [Mass ratio] 1.0 {ratio} 0.9-2.4 [facility] ALP [Catalytic activity/Vol] 107 U/L 45-117 [facility] ALT [Catalytic activity/Vol] 33 U/L 16-61 [facility] Cholesterol in HDL [Mass/Vol] 39 mg/dL >40 [facility] Comment on above: The drugs N-Acetylcy steine and Metamizole may falsely depress this assay. Reference Range HDL <40 mg/dL Low HDL Cholesterol HDL >or= 60 mg/dL High HDL Cholesterol Cholesterol in LDL [Mass/Vol] 111 mg/dL 0-130 [facility] CO2 [Moles/Vol] 23.0 mmol/L 21.0-32.0 [facility] Globulin (S) [Mass/Vol] 3.4 g/dL 2.2-4.2 [facility] Urea nitrogen/Creatinine [Mass ratio] 14.5 mg/mg 10-20 [facility] Laboratory - Hematology and Cell countsOrdered By: Luis Villeda on 12-26-2023 MCH (RBC) [Entitic mass] 29.5 pg 27.0-32.0 [facility] MCHC (RBC) [Mass/Vol] 33.5 g/dL 32-36 [facility] Platelet mean volume (Bld) [Entitic vol] 10.6 fL 6.2-12.0 [facility] Platelets (Bld) [#/Vol] 235 10*3/uL 150-450 [facility] No Panel InformationOrdered By: Maldonado Whitt on 12-26-2023 D-Dimer Quantitative (PE/DVT) < 0.27 FEU/ug/m 0.27-0.49 [facility] Comment on above: NORMAL D-Dimer level (<0.50) indicates no DVT or PE. No Panel InformationOrdered By: Luis Villeda on 12-26-2023 Estimated Creatinine Clearance Calc 121.06 ml/min [facility] Estimated GFR (MDRD) Amer 125 mL/min >60 [facility] Comment on above: GFR Calc Estimated GFR (MDRD) Non-Af Amer 103 mL/min >60 [facility] Comment on above: Non- GFR Calc VLDL Cholesterol 28 mg/dL 5-40 [facility] No Panel InformationOrdered By: Nasim Leblanc on 12-26-2023 Ethyl Alcohol Level < 3.0 mg/dL [facility] Comment on above: The serum:whole bloo d ethanol ratio is approximately 1.14and varies slightly with hematocrit. Medical Alcohol reference interval and critical value innon-tolerant individuals; 50 - 100 Impairment 100 Intoxication 100 - 250 Severe Poisoning 250 - 400 Deep/possible fatal coma RBC Auto (Bld) [#/Vol]Ordere d By: Luis Villeda on 12-26-2023 RBC (Bld) [#/Vol] 5.09 10*6/uL 4.6-6.2 [facility] Serum or plasma calcium jessica urement (mass/volume)Ordered By: Luis Villeda on 12-26-2023 Calcium [Mass/Vol] 9.4 mg/dL 8.5-10.1 [facility] Serum or plasma creatinine m easurement (mass/volume)Ordered By: Luis Villeda on 12-26-2023 Creatinine [Mass/Vol] 0.83 mg/dL 0.70-1.30 [facility] Comment on above: The validity of the calculated GFR & GFRAA in patients over 70 years has not been determined. Clinical correlation is essential. Serum or plasma urea nitroge n measurement (mass/volume)Ordered By: Luis Villeda on 12-26-2023 Urea nitrogen [Mass/Vol] 12 mg/dL 7-18 [facility] Thin prep Papanicolaou smear with manual screeningOrdered By: Luis Villeda on 12-26-2023 Thin prep Papanicolaou smear with manual screening 3.5 g/dL 3.2-5.0 [facility] Thin prep Papanicolaou smear with manual screening 16 U/L 15-37 [facility] Thin prep Papanicolaou smear with manual screening 8 5-15 [facility] Thin prep Papanicolaou smear with manual screeningOrdered By: Maldonado Whitt on 12-26-2023 Thin prep Papanicolaou smear with manual screening 86 mg/dL 74-106 [facility] Comment on above: MANAGEMENT OF PATIEN T CARE PER NURSING PROTOCOL Absolute lymphocyte countOrd ered By: Mary Lewis on 12-25-2023 Lymphocytes Auto (Unsp spec) [#/Vol] 2.00 10*3/uL 0.83-4.51 [facility] Activated partial thrombopla stin time (aPTT) in platelet poor plasma by coagulation aOrdered By: Mary Lewis on 12-25-2023 aPTT Coag (PPP) [Time] 31.7 s 24.1-36.2 [facility] Automated lymphocyte count a s percentage of total leukocytesOrdered By: Mary Lewis on 12-25-2023 Lymphocytes/100 WBC Auto (Unsp spec) 14.1 % 19-41 [facility] Basophil percentageOrdered B y: Mary Lewis on 12-25-2023 Basophils/100 WBC (Bld) 0.4 % 0-1 [facility] Eosinophils/100 WBC (Bld) 1.0 % 0-5 [facility] Monocytes/100 WBC (Bld) 8.8 % 0-10 [facility] Neutrophils (Bld) [#/Vol] 10.6 10*3/uL 2.0-7.7 [facility] Neutrophils/100 WBC (Bld) 75.1 % 47-70 [facility] Immature granulocytes/100 WB C Auto (Bld)Ordered By: Mary Lewis on 12-25-2023 Immature granulocytes/100 WBC (Bld) 0.600 % 0.0-0.9 [facility] Comment on above: IG% - Immature Granu locytes (promyelocytes, myelocytes and metamyelocytes) > 1% indicates that a LEFT SHIFT is Present. Laboratory - Chemistry and C hemistry - challengeOrdered By: Nasim Leblanc on 12-25-2023 Amylase [Catalytic activity/Vol] 24 U/L 15-85 [facility] Laboratory - Chemistry and C hemistry - challengeOrdered By: Mary Lewis on 12-25-2023 Magnesium [Mass/Vol] 1.8 mg/dL 1.6-2.[address] [facility] Laboratory - Hematology and Cell countsOrdered By: Mary Lewis on 12-25-2023 Nucleated RBC/100 WBC (Bld) [Ratio] 0 % 0-5 [facility] No Panel InformationOrdered By: Maldonado Whitt on 12-25-2023 Activated Clotting Time 228 sec 74-137 [facility] Activated Clotting Time 228 sec 74-137 [facility] Serum or plasma thyroid stim ulating hormone (TSH) measurement (units/volume)Ordered By: Mary Lewis on 12-25-2023 TSH Qn 1.74 uIU/mL 0.358-3.74 [facility] Whole blood hemoglobin A1c/t otal hemoglobin ratio (mass fraction)Ordered By: Mary Lewis on 12-25-2023 HbA1c (Bld) [Mass fraction] 7.3 % 3.8-5.6 [facility] Comment on above: Normal < 5.7 % Predi abetic 5.7 - 6.4 % Diabetic >or= 6.5 % Please note range changes. Absolute lymphocyte countOrd ered By: Pollo Bond on 12-24-2023 Lymphocytes Auto (Unsp spec) [#/Vol] 2.44 10*3/uL 0.83-4.51 [facility] Activated partial thrombopla stin time (aPTT) in platelet poor plasma by coagulation aOrdered By: Pollo Bond on 12-24-2023 aPTT Coag (PPP) [Time] 24.7 s 24.1-36.2 [facility] Automated lymphocyte count a s percentage of total leukocytesOrdered By: Pollo Bond on 12-24-2023 Lymphocytes/100 WBC Auto (Unsp spec) 20.4 % 19-41 [facility] Basophil percentageOrdered B y: Pollo Bond on 12-24-2023 Basophils/100 WBC (Bld) 0.7 % 0-1 [facility] Chloride [Moles/Vol] 104 mmol/L 98-[address] [facility] Eosinophils/100 WBC (Bld) 0.9 % 0-5 [facility] Glucose [Mass/Vol] 286 mg/dL 74-106 [facility] Comment on above: Glucose result great er than or equal to 200 mg/dLsuggests DIABETES MELLITUS per A.D.A. criteria. Hemoglobin (Bld) [Mass/Vol] 17.3 g/dL 13.0-16.5 [facility] Monocytes/100 WBC (Bld) 10.0 % 0-10 [facility] Neutrophils (Bld) [#/Vol] 8.1 10*3/uL 2.0-7.7 [facility] Neutrophils/100 WBC (Bld) 67.1 % 47-70 [facility] Potassium [Moles/Vol] 3.6 mmol/L 3.5-5.1 [facility] Sodium [Moles/Vol] 141 mmol/L 136-145 [facility] WBC (Bld) [#/Vol] 12.0 10*3/uL 4.4-11.0 [facility] Determination of erythrocyte mean corpuscular volume (MCV)Ordered By: Pollo Bond on 12-24-2023 MCV (RBC) [Entitic vol] 88.3 fL 80-94 [facility] Erythrocyte distribution wid th ratioOrdered By: Pollo Bond on 12-24-2023 Erythrocyte distribution width (RBC) [Ratio] 13.5 % 11.6-14.6 [facility] Erythrocyte distribution wid th standard deviationOrdered By: Pollo Bond on 12-24-2023 Erythrocyte distribution width (RBC) [Entitic vol] 43.1 fL 35.1-43.9 [facility] Hematocrit Auto (Bld) [Volum e fraction]Ordered By: Pollo Bond on 12-24-2023 Hematocrit (Bld) [Volume fraction] 51.4 % 40-54 [facility] Immature granulocytes/100 WB C Auto (Bld)Ordered By: Pollo Bond on 12-24-2023 Immature granulocytes/100 WBC (Bld) 0.900 % 0.0-0.9 [facility] Comment on above: IG% - Immature Granu locytes (promyelocytes, myelocytes and metamyelocytes) > 1% indicates that a LEFT SHIFT is Present. International normalized rat io (INR) calculationOrdered By: Pollo Bond on 12-24-2023 INR Coag (PPP) [Relative time] 0.9 {INR} [facility] Laboratory - Chemistry and C hemistry - challengeOrdered By: Pollo Bond on 12-24-2023 CO2 [Moles/Vol] 28.0 mmol/L 21.0-32.0 [facility] Natriuretic peptide B (Bld) [Mass/Vol] 103.6 pg/mL 0-100 [facility] Urea nitrogen/Creatinine [Mass ratio] 12.4 mg/mg 10-20 [facility] Laboratory - CoagulationOrde red By: Pollo Bond on 12-24-2023 PT Coag (PPP) [Time] 12.0 s 11.7-14.[address] [facility] Laboratory - Hematology and Cell countsOrdered By: Pollo Bond on 02-05-2024 MCH (RBC) [Entitic mass] 29.7 pg 27.0-32.0 [facility] MCHC (RBC) [Mass/Vol] 33.7 g/dL 32-36 [facility] Nucleated RBC/100 WBC (Bld) [Ratio] 0 % 0-5 [facility] Platelets (Bld) [#/Vol] 274 10*3/uL 150-450 [facility] No Panel InformationOrdered By: Mary Lewis on 12-24-2023 Troponin I High Sensitivity 387 pg/mL 3.0-78.0 [facility] Comment on above: Critical Result(s) C alled at: 21:25:09 12/24/2023 by: ROSARIO GONZALES TO LUÍS DAWSON. Results read back by same. Please Note: New Test Units and Gender Specific Reference Ranges. For more information see Policy Stat Procedure [place] High Sensitivity Troponin (TNIH) and attachments. No Panel InformationOrdered By: Pollo Bond on 12-24-2023 Troponin I High Sensitivity 280 pg/mL 3.0-78.0 [facility] Comment on above: Critical Result(s) C alled at: 15:17:34 12/24/2023 by: Magda Irving to Moisés. Results read back by same. Please Note: New Test Units and Gender Specific Reference Ranges. For more information see Policy Stat Procedure [place] High Sensitivity Troponin (TNIH) and attachments. D-Dimer Quantitative (PE/DVT) 0.47 FEU/ug/m 0.27-0.49 [facility] Comment on above: NORMAL D-Dimer level (<0.50) indicates no DVT or PE. Estimated GFR (MDRD) Amer 88 mL/min >60 [facility] Comment on above: GFR Calc Estimated GFR (MDRD) Non-Af Amer 72 mL/min >60 [facility] Comment on above: Non- GFR Calc Platelet mean volume James-Ec ker (Bld) [Entitic vol]Ordered By: Pollo Bond on 12-24-2023 Platelet mean volume (Bld) [Entitic vol] 10.9 fL 6.2-12.0 [facility] RBC Auto (Bld) [#/Vol]Ordere d By: Pollo Bond on 12-24-2023 RBC (Bld) [#/Vol] 5.82 10*6/uL 4.6-6.2 [facility] Serum or plasma calcium jessica urement (mass/volume)Ordered By: Pollo Bond on 12-24-2023 Calcium [Mass/Vol] 9.8 mg/dL 8.5-10.1 [facility] Serum or plasma creatinine m easurement (mass/volume)Ordered By: Pollo Bond on 12-24-2023 Creatinine [Mass/Vol] 1.13 mg/dL 0.70-1.30 [facility] Comment on above: The validity of the calculated GFR & GFRAA in patients over 70 years has not been determined. Clinical correlation is essential. Serum or plasma urea nitroge n measurement (mass/volume)Ordered By: Pollo Bond on 12-24-2023 Urea nitrogen [Mass/Vol] 14 mg/dL 7-18 [facility] Thin prep Papanicolaou smear with manual screeningOrdered By: Pollo Bond on 12-24-2023 Thin prep Papanicolaou smear with manual screening 9 5-15 [facility] Absolute lymphocyte countOrd ered By: Luis York on 11-21-2023 Lymphocytes Auto (Unsp spec) [#/Vol] 2.69 10*3/uL 0.83-4.51 [facility] Basophil percentageOrdered B y: Luis York on 11-21-2023 Basophils/100 WBC (Bld) 0.5 % 0-1 [facility] Chloride [Moles/Vol] 107 mmol/L 98-[address] [facility] Eosinophils/100 WBC (Bld) 2.0 % 0-5 [facility] Glucose [Mass/Vol] 162 mg/dL 74-106 [facility] Comment on above: Fasting Glucose resu lt greater than or equal to 126 mg/dL suggests DIABETES MELLITUS per A.D.A. criteria. Neutrophils (Bld) [#/Vol] 6.6 10*3/uL 2.0-7.7 [facility] Neutrophils/100 WBC (Bld) 62.0 % 47-70 [facility] Potassium [Moles/Vol] 3.8 mmol/L 3.5-5.1 [facility] Sodium [Moles/Vol] 139 mmol/L 136-145 [facility] WBC (Bld) [#/Vol] 10.7 10*3/uL 4.4-11.0 [facility] Blood erythrocytes count (nu mber/volume)Ordered By: Luis York on 11-21-2023 RBC (Bld) [#/Vol] 4.94 10*6/uL 4.6-6.2 [facility] Blood hemoglobin measurement (mass/volume)Ordered By: Luis York on 11-21-2023 Hemoglobin (Bld) [Mass/Vol] 15.0 g/dL 13.0-16.5 [facility] Blood lymphocytes/100 leukoc ytesOrdered By: Luis York on 11-21-2023 Lymphocytes/100 WBC (Bld) 25.2 % 19-41 [facility] Blood monocytes/100 leukocyt esOrdered By: Luis York on 11-21-2023 Monocytes/100 WBC (Bld) 9.8 % 0-10 [facility] Blood platelet mean volumeOr dered By: Luis York on 11-21-2023 Platelet mean volume (Bld) [Entitic vol] 10.0 fL 6.2-12.0 [facility] Determination of erythrocyte mean corpuscular volume (MCV)Ordered By: Luis York on 11-21-2023 MCV (RBC) [Entitic vol] 88.3 fL 80-94 [facility] Hematocrit Auto (Bld) [Volum e fraction]Ordered By: Luis York on 11-21-2023 Hematocrit (Bld) [Volume fraction] 43.6 % 40-54 [facility] Laboratory - Chemistry and C hemistry - challengeOrdered By: Luis York on 11-21-2023 CO2 [Moles/Vol] 28.0 mmol/L 21.0-32.0 [facility] Urea nitrogen/Creatinine [Mass ratio] 16.7 mg/mg 10-20 [facility] Laboratory - Hematology and Cell countsOrdered By: Luis York on 11-21-2023 Erythrocyte distribution width (RBC) [Entitic vol] 43.4 fL 35.1-43.9 [facility] Erythrocyte distribution width (RBC) [Ratio] 13.3 % 11.6-14.6 [facility] Immature granulocytes/100 WBC (Bld) 0.500 % 0.0-0.9 [facility] Comment on above: IG% - Immature Granu locytes (promyelocytes, myelocytes and metamyelocytes) > 1% indicates that a LEFT SHIFT is Present. MCH (RBC) [Entitic mass] 30.4 pg 27.0-32.0 [facility] Nucleated RBC/100 WBC (Bld) [Ratio] 0 % 0-5 [facility] MCHC Auto (RBC) [Mass/Vol]Or dered By: Luis York on 11-21-2023 MCHC (RBC) [Mass/Vol] 34.4 g/dL 32-36 [facility] No Panel InformationOrdered By: Luis York on 11-21-2023 Troponin I High Sensitivity 40 pg/mL 3.0-78.0 [facility] Comment on above: Please Note: New Sirisha t Units and Gender Specific Reference Ranges. For more information see Policy Stat Procedure [place] High Sensitivity Troponin (TNIH) and attachments. Estimated Creatinine Clearance Calc 73.33 ml/min [facility] Estimated GFR (MDRD) Amer 87 mL/min >60 [facility] Comment on above: GFR Calc Estimated GFR (MDRD) Non-Af Amer 72 mL/min >60 [facility] Comment on above: Non- GFR Calc Platelets bldOrdered By: Ousmane York on 11-21-2023 Platelets (Bld) [#/Vol] 260 10*3/uL 150-450 [facility] Serum or plasma calcium jessica urement (mass/volume)Ordered By: Luis York on 11-21-2023 Calcium [Mass/Vol] 9.4 mg/dL 8.5-10.1 [facility] Serum or plasma creatinine m easurement (mass/volume)Ordered By: Luis York on 11-21-2023 Creatinine [Mass/Vol] 1.14 mg/dL 0.70-1.30 [facility] Comment on above: The validity of the calculated GFR & GFRAA in patients over 70 years has not been determined. Clinical correlation is essential. Serum or plasma urea nitroge n measurement (mass/volume)Ordered By: Luis York on 11-21-2023 Urea nitrogen [Mass/Vol] 19 mg/dL 7-18 [facility] Thin prep Papanicolaou smear with manual screeningOrdered By: Luis York on 11-21-2023 Thin prep Papanicolaou smear with manual screening 4 5-15 [facility] Absolute lymphocyte counton 06-26-2022 Lymphocytes Auto (Unsp spec) [#/Vol] 3.53 10*3/uL 0.83-4.51 [facility] Work Phone: Lymphocytes Auto (Unsp spec) [#/Vol] 3.42 10*3/uL 0.83-4.51 [facility] Work Phone: Basophil percentageon 2021 Basophils/100 WBC (Bld) 0.6 % 0-1 [facility] Work Phone: Bilirubin [Mass/Vol] 0.50 mg/dL 0.20-1.[address] [facility] Work Phone: Comment on above: For patients on eltr ombopag therapy, use of Dimension [place] TBIL is not recommended. Chloride [Moles/Vol] 106 mmol/L 98-[address] [facility] Work Phone: Eosinophils/100 WBC (Bld) 2.3 % 0-5 [facility] Work Phone: [phone] Glucose [Mass/Vol] 157 mg/dL 74-106 [facility] Work Phone: [phone] Comment on above: Fasting Glucose resu lt greater than or equal to 126 mg/dL suggests DIABETES MELLITUS per A.D.A. criteria. Neutrophils (Bld) [#/Vol] 7.3 10*3/uL 2.0-7.7 [facility] Work Phone: Neutrophils/100 WBC (Bld) 58.6 % 47-70 [facility] Work Phone: Potassium [Moles/Vol] 4.6 mmol/L 3.5-5.1 [facility] Work Phone: Comment on above: Moderate Hemolysis, Result may be falsely increased. Protein [Mass/Vol] 7.1 g/dL 6.4-8.2 [facility]: Sodium [Moles/Vol] 138 mmol/L 136-145 [facility] Phone: WBC (Bld) [#/Vol] 12.5 10*3/uL 4.4-11.0 [facility] Phone: Basophils/100 WBC (Bld) 0.5 % 0-1 [facility] Work Phone: Chloride [Moles/Vol] 107 mmol/L 98-107 [facility]: Eosinophils/100 WBC (Bld) 2.1 % 0-5 [facility] Work Phone: Glucose [Mass/Vol] 186 mg/dL 74-106 [facility] Phone: Comment on above: Fasting Glucose resu lt greater than or equal to 126 mg/dL suggests DIABETES MELLITUS per A.D.A. criteria. Neutrophils (Bld) [#/Vol] 8.0 10*3/uL 2.0-7.7 [facility] Work Phone: Neutrophils/100 WBC (Bld) 60.9 % 47-70 [facility] Work Phone: Potassium [Moles/Vol] 3.8 mmol/L 3.5-5.1 [facility] Work Phone: Sodium [Moles/Vol] 140 mmol/L 136-145 [facility] Work Phone: WBC (Bld) [#/Vol] 13.1 10*3/uL 4.4-11.0 [facility] Work Phone: Blood erythrocytes count (nu mber/volume)on 06-26-2022 RBC (Bld) [#/Vol] 4.86 10*6/uL 4.6-6.2 [facility] Work Phone: RBC (Bld) [#/Vol] 4.94 10*6/uL 4.6-6.2 [facility] Work Phone: Blood hemoglobin measurement (mass/volume)on 06-26-2022 Hemoglobin (Bld) [Mass/Vol] 14.8 g/dL 13.0-16.5 [facility] Work Phone: Hemoglobin (Bld) [Mass/Vol] 15.6 g/dL 13.0-16.5 [facility] Work Phone: Blood lymphocytes/100 leukoc yteson 06-26-2022 Lymphocytes/100 WBC (Bld) 28.3 % 19-41 [facility] Work Phone: Lymphocytes/100 WBC (Bld) 26.1 % 19- [facility] Work Phone: Blood monocytes/100 leukocyt eson 06-26-2022 Monocytes/100 WBC (Bld) 9.6 % 0-10 [facility] Work Phone: Monocytes/100 WBC (Bld) 9.7 % 0-10 [facility] Work Phone: Blood platelet mean volumeon 06-26-2022 Platelet mean volume (Bld) [Entitic vol] 10.5 fL 6.2-12.0 [facility] Work Phone: Platelet mean volume (Bld) [Entitic vol] 10.1 fL 6.2-12.0 [facility] Work Phone: Determination of erythrocyte mean corpuscular volume (MCV)on 06-26-2022 MCV (RBC) [Entitic vol] 90.1 fL 80-94 [facility] Work Phone: MCV (RBC) [Entitic vol] 89.1 fL 80-94 [facility] Work Phone: Glucose Glucometer (BldC) [M ass/Vol]on 06-26-2022 Glucose [Mass/Vol] 217 mg/dL 74-106 [facility] Work Phone: Comment on above: MANAGEMENT OF PATIEN T CARE PER NURSING PROTOCOL Hematocrit Auto (Bld) [Volum e fraction]on 06-26-2022 Hematocrit (Bld) [Volume fraction] 43.8 % 40-54 [facility] Work Phone: Hematocrit (Bld) [Volume fraction] 44.0 % 40-54 [facility] Work Phone: INR in Blood by Coagulation assayon 06-26-2022 INR Coag (Bld) [Relative time] 0.9 {INR} [facility] Work Phone: Laboratory - Chemistry and C hemistry - challengeon 06-26-2022 ALP [Catalytic activity/Vol] 84 U/L 45-117 [facility] Work Phone: ALT [Catalytic activity/Vol] 22 U/L 16-61 [facility] Work Phone: CO2 [Moles/Vol] 27.0 mmol/L 21.0-32.0 [facility] Work Phone: Globulin (S) [Mass/Vol] 3.9 g/dL 2.2-4.2 [facility] Work Phone: [phone] Urea nitrogen/Creatinine [Mass ratio] 19.6 mg/mg 10-20 [facility] Work Phone: CO2 [Moles/Vol] 28.0 mmol/L 21.0-32.0 [facility] Work Phone: Magnesium [Mass/Vol] 2.1 mg/dL 1.6-2.[address] [facility] Work Phone: [phone] Urea nitrogen/Creatinine [Mass ratio] 16.5 mg/mg 10-20 [facility] Work Phone: Laboratory - Coagulationon 0 06-26-2022 aPTT Coag (Bld) [Time] 23.9 s 24.1-36.2 [facility] Work Phone: PT Coag (PPP) [Time] 11.8 s 11.7-14.[address] [facility] Work Phone: Laboratory - Hematology and Cell countson 06-26-2022 Erythrocyte distribution width (RBC) [Entitic vol] 45.3 fL 35.1-43.9 [facility] Work Phone: Erythrocyte distribution width (RBC) [Ratio] 13.8 % 11.6-14.6 [facility] Work Phone: [phone] Immature granulocytes/100 WBC (Bld) 0.600 % 0.0-0.9 [facility] Work Phone: Comment on above: IG% - Immature Granu locytes (promyelocytes, myelocytes and metamyelocytes) > 1% indicates that a LEFT SHIFT is Present. MCH (RBC) [Entitic mass] 30.5 pg 27.0-32.0 [facility] Work Phone: Nucleated RBC/100 WBC (Bld) [Ratio] 0 % 0-5 [facility] Work Phone: Erythrocyte distribution width (RBC) [Entitic vol] 43.9 fL 35.1-43.9 [facility] Work Phone: Erythrocyte distribution width (RBC) [Ratio] 13.4 % 11.6-14.6 [facility] Work Phone: Immature granulocytes/100 WBC (Bld) 0.700 % 0.0-0.9 [facility] Work Phone: Comment on above: IG% - Immature Granu locytes (promyelocytes, myelocytes and metamyelocytes) > 1% indicates that a LEFT SHIFT is Present. MCH (RBC) [Entitic mass] 31.6 pg 27.0-32.0 [facility] Work Phone: Nucleated RBC/100 WBC (Bld) [Ratio] 0 % 0-5 [facility] Work Phone: MCHC Auto (RBC) [Mass/Vol]on 06-26-2022 MCHC (RBC) [Mass/Vol] 33.8 g/dL [facility] Work Phone: MCHC (RBC) [Mass/Vol] 35.5 g/dL [facility] Work Phone: No Panel Informationon 06-26 Estimated Creatinine Clearance Calc 98.28 ml/min [facility] Work Phone: Estimated GFR (MDRD) Amer 119 mL/min >60 [facility] Work Phone: Comment on above: GFR Calc Estimated GFR (MDRD) Non-Af Amer 99 mL/min >60 [facility] Work Phone: Comment on above: Non- GFR Calc Troponin I High Sensitivity 127 pg/mL 3.0-78.0 [facility] Work Phone: Comment on above: Critical Result(s) C alled at: 07:54:30 06/26/2022 by: Magda Melvin. Results read back by same. Please Note: New Test Units and Gender Specific Reference Ranges. For more information see Policy Stat Procedure [place] High Sensitivity Troponin (TNIH) and attachments. Troponin I High Sensitivity 118 pg/mL 3.0-78.0 [facility] Work Phone: Comment on above: Please Note: New Sirisha t Units and Gender Specific Reference Ranges. For more information see Policy Stat Procedure [place] High Sensitivity Troponin (TNIH) and attachments. Estimated Creatinine Clearance Calc 78.44 ml/min [facility] Work Phone: Estimated GFR (MDRD) Amer 92 mL/min >60 [facility] Work Phone: Comment on above: GFR Calc Estimated GFR (MDRD) Non-Af Amer 76 mL/min >60 [facility] Work Phone: Comment on above: Non- GFR Calc Platelets bldon 06-26-2022 Platelets (Bld) [#/Vol] 239 10*3/uL 150-450 [facility] Work Phone: Platelets (Bld) [#/Vol] 221 10*3/uL 150-450 [facility] Work Phone: Serum or plasma albumin jessica urement (mass/volume)on 06-26-2022 Albumin [Mass/Vol] 3.2 g/dL 3.2-5.0 [facility] Work Phone: Serum or plasma albumin/glob ulin mass ratioon 06-26-2022 Albumin/Globulin [Mass ratio] 0.8 {ratio} 0.9-2.4 [facility] Work Phone: Serum or plasma calcium jessica urement (mass/volume)on 06-26-2022 Calcium [Mass/Vol] 8.4 mg/dL 8.5-10.1 [facility] Work Phone: Calcium [Mass/Vol] 9.2 mg/dL 8.5-10.1 [facility] Work Phone: Serum or plasma creatinine m easurement (mass/volume)on 06-26-2022 Creatinine [Mass/Vol] 0.87 mg/dL 0.70-1.30 [facility] Work Phone: Comment on above: The validity of the calculated GFR & GFRAA in patients over 70 years has not been determined. Clinical correlation is essential. Creatinine [Mass/Vol] 1.09 mg/dL 0.70-1.30 [facility] Work Phone: Comment on above: The validity of the calculated GFR & GFRAA in patients over 70 years has not been determined. Clinical correlation is essential. Serum or plasma urea nitroge n measurement (mass/volume)on 06-26-2022 Urea nitrogen [Mass/Vol] 17 mg/dL 7-18 [facility] Work Phone: Urea nitrogen [Mass/Vol] 18 mg/dL 06-05 [facility] Work Phone: Thin prep Papanicolaou smear with manual screeningon 06-26-2022 Thin prep Papanicolaou smear with manual screening 31 U/L 15-37 [facility] Work Phone: Comment on above: Moderate Hemolysis, Result may be falsely increased. Thin prep Papanicolaou smear with manual screening 5 5-15 [facility] Work Phone: Thin prep Papanicolaou smear with manual screening 5 5-15 [facility] Work Phone: Absolute lymphocyte counton 04-27-2022 Lymphocytes Auto (Unsp spec) [#/Vol] 3.16 10*3/uL 0.83-4.51 [facility] Work Phone: Basophil percentageon 2021 Basophils/100 WBC (Bld) 0.3 % 0-1 [facility] Work Phone: Chloride [Moles/Vol] 102 mmol/L 98-107 [facility]: Eosinophils/100 WBC (Bld) 1.3 % 0-5 [facility] Work Phone: Glucose [Mass/Vol] 119 mg/dL 74-106 [facility] Work Phone: Comment on above: Fasting Glucose resu lt from 100 to 125 mg/dL suggests IMPAIRED HOMEOSTASIS per A.D.A. criteria. Neutrophils (Bld) [#/Vol] 9.8 10*3/uL 2.0-7.7 [facility] Work Phone: Neutrophils/100 WBC (Bld) 66.9 % 47-70 [facility] Work Phone: Potassium [Moles/Vol] 3.4 mmol/L 3.5-5.1 [facility] Work Phone: [phone] Sodium [Moles/Vol] 137 mmol/L 136-145 [facility] Work Phone: WBC (Bld) [#/Vol] 14.6 10*3/uL 4.4-11.0 [facility] Work Phone: Blood erythrocytes count (nu mber/volume)on 04-27-2022 RBC (Bld) [#/Vol] 4.94 10*6/uL 4.6-6.2 [facility] Work Phone: Blood hemoglobin measurement (mass/volume)on 04-27-2022 Hemoglobin (Bld) [Mass/Vol] 14.8 g/dL 13.0-16.5 [facility] Work Phone: Blood lymphocytes/100 leukoc yteson 04-27-2022 Lymphocytes/100 WBC (Bld) 21.6 % 19-41 [facility] Work Phone: Blood monocytes/100 leukocyt eson 04-27-2022 Monocytes/100 WBC (Bld) 9.2 % 0-10 [facility] Work Phone: Blood platelet mean volumeon 04-27-2022 Platelet mean volume (Bld) [Entitic vol] 10.0 fL 6.2-12.0 [facility] Work Phone: Determination of erythrocyte mean corpuscular volume (MCV)on 04-27-2022 MCV (RBC) [Entitic vol] 89.3 fL 80-94 [facility] Work Phone: Glucose Glucometer (BldC) [M ass/Vol]on 04-27-2022 Glucose [Mass/Vol] 110 mg/dL 74-106 [facility] Work Phone: Comment on above: MANAGEMENT OF PATIEN T CARE PER NURSING PROTOCOL Hematocrit Auto (Bld) [Volum e fraction]on 04-27-2022 Hematocrit (Bld) [Volume fraction] 44.1 % 40-54 [facility] Work Phone: INR in Blood by Coagulation assayon 04-27-2022 INR Coag (Bld) [Relative time] 1.0 {INR} [facility] Work Phone: Laboratory - Chemistry and C hemistry - challengeon 04-27-2022 CO2 [Moles/Vol] 30.0 mmol/L 21.0-32.0 [facility] Work Phone: Urea nitrogen/Creatinine [Mass ratio] 16.2 mg/mg 10-20 [facility] Work Phone: Laboratory - Coagulationon 0 04-27-2022 aPTT Coag (Bld) [Time] 24.8 s 24.1-36.2 [facility] Work Phone: PT Coag (PPP) [Time] 12.6 s 11.7-14.[address] [facility] Work Phone: Laboratory - Hematology and Cell countson 04-27-2022 Erythrocyte distribution width (RBC) [Entitic vol] 45.2 fL 35.1-43.9 [facility] Work Phone: Erythrocyte distribution width (RBC) [Ratio] 14.0 % 11.6-14.6 [facility] Work Phone: Immature granulocytes/100 WBC (Bld) 0.700 % 0.0-0.9 [facility] Work Phone: Comment on above: IG% - Immature Granu locytes (promyelocytes, myelocytes and metamyelocytes) > 1% indicates that a LEFT SHIFT is Present. MCH (RBC) [Entitic mass] 30.0 pg 27.0-32.0 [facility] Work Phone: Nucleated RBC/100 WBC (Bld) [Ratio] 0 % 0-5 [facility] Work Phone: MCHC Auto (RBC) [Mass/Vol]on 04-27-2022 MCHC (RBC) [Mass/Vol] 33.6 g/dL 32-36 [facility] Work Phone: No Panel Informationon 04-27 Troponin I High Sensitivity 79 pg/mL 3.0-78.0 [facility] Work Phone: Comment on above: Please Note: New Sirisha t Units and Gender Specific Reference Ranges. For more information see Policy Stat Procedure [place] High Sensitivity Troponin (TNIH) and attachments. Estimated Creatinine Clearance Calc 86.36 ml/min [facility] Work Phone: Estimated GFR (MDRD) Amer 103 mL/min >60 [facility] Work Phone: Comment on above: GFR Calc Estimated GFR (MDRD) Non-Af Amer 85 mL/min >60 [facility] Work Phone: Comment on above: Non- GFR Calc Troponin I High Sensitivity 81 pg/mL 3.0-78.0 [facility] Work Phone: Comment on above: Please Note: New Sirisha t Units and Gender Specific Reference Ranges. For more information see Policy Stat Procedure [place] High Sensitivity Troponin (TNIH) and attachments. Platelets bldon 04-27-2022 Platelets (Bld) [#/Vol] 270 10*3/uL 150-450 [facility] Work Phone: Serum or plasma calcium jessica urement (mass/volume)on 04-27-2022 Calcium [Mass/Vol] 9.1 mg/dL 8.5-10.1 [facility] Work Phone: Serum or plasma creatinine m easurement (mass/volume)on 04-27-2022 Creatinine [Mass/Vol] 0.99 mg/dL 0.70-1.30 [facility] Work Phone: Comment on above: The validity of the calculated GFR & GFRAA in patients over 70 years has not been determined. Clinical correlation is essential. Serum or plasma urea nitroge n measurement (mass/volume)on 04-27-2022 Urea nitrogen [Mass/Vol] 16 mg/dL 7-18 [facility] Work Phone: Thin prep Papanicolaou smear with manual screeningon 04-27-2022 Thin prep Papanicolaou smear with manual screening 5 5-15 [facility] Work Phone: Laboratory - Hematology and Cell countson 03-30-2022 HbA1c (Bld) [Mass fraction] 6.1 % 4.2-6.3 [facility] Work Phone: Laboratory - Hematology and Cell countson 02-15-2022 HbA1c (Bld) [Mass fraction] 6.0 % [facility] Work Phone: Basophil percentageon 2021 Bilirubin [Mass/Vol] 0.30 mg/dL 0.20-1.[address] [facility] Work Phone: Comment on above: For patients on eltr ombopag therapy, use of Dimension [place] TBIL is not recommended. Cholesterol [Mass/Vol] 125 mg/dL <200 [facility] Work Phone: Comment on above: <200 mg/dL Desirable 200-240 mg/dL Borderline >240 mg/dL High Risk Protein [Mass/Vol] 7.5 g/dL 6.4-8.2 [facility] Work Phone: Triglyceride [Mass/Vol] 68 mg/dL [facility] Work Phone: Comment on above: The drugs N-Acetylcy steine and Metamizole may falsely depress this assay.Serum Triglycerides Reference Interval Normal <150 mg/dL Borderline high 150 - 199 mg/dL High 200 - 499 mg/dL Very High > or = 500 mg/dL Direct bilirubinon 2 Bilirubin.direct [Mass/Vol] 0.11 mg/dL 0.00-0.30 [facility] Work Phone: Laboratory - Chemistry and C hemistry - challengeon 01-18-2022 ALP [Catalytic activity/Vol] 89 U/L 45-117 [facility] Work Phone: ALT [Catalytic activity/Vol] 21 U/L 16-61 [facility] Work Phone: Globulin (S) [Mass/Vol] 4.0 g/dL 2.2-4.2 [facility] Work Phone: Serum or plasma albumin jessica urement (mass/volume)on 01-18-2022 Albumin [Mass/Vol] 3.5 g/dL 3.2-5.0 [facility] Work Phone: Serum or plasma cholesterol in HDL measurement (mass/volume)on 01-18-2022 Cholesterol in HDL [Mass/Vol] 41 mg/dL [facility] Work Phone: Comment on above: The drugs N-Acetylcy steine and Metamizole may falsely depress this assay. Reference Range HDL <40 mg/dL Low HDL Cholesterol HDL >or= 60 mg/dL High HDL Cholesterol Serum or plasma cholesterol in VLDL measurement (mass/volume)on 01-18-2022 Cholesterol in VLDL [Mass/Vol] 14 mg/dL 5-40 [facility] Work Phone: Serum or plasma low density lipoprotein (LDL) cholesterol measurement (mass/volume)on 01-18-2022 Cholesterol in LDL [Mass/Vol] 70 mg/dL 0-130 [facility] Work Phone: Thin prep Papanicolaou smear with manual screeningon 01-18-2022 Thin prep Papanicolaou smear with manual screening 12 U/L 15-37 [facility] Work Phone: Office Visit: [facility] 07-17-20 Dietary management education, guidance, and counseling (procedure) yes Invalid Interpretation Code [facility] Work Phone: [phone] Documentation of current medications (procedure) Done Invalid Interpretation Code [facility] Work Phone: [phone] Fall risk assessment No Invalid Interpretation Code [facility] Work Phone: [phone] Protein mass conc Done [facility] Work Phone: [phone] Lab Report: Basic Metabolic Profile (BMP)on 04-27-2017 Anion gap 4 mmol/L Low 5-15 [facility] Work Phone: [phone] Anion gap molar conc 4 mmol/L Low 5-15 [facility] Work Phone: [phone] BUN/Creatinine Ratio 14.3 RATIO Invalid Interpretation Code 10-20 [facility] Work Phone: [phone] Calcium 9.0 mg/dL Invalid Interpretation Code 8.5-10.1 [facility] Work Phone: [phone] Chloride 106 mmol/L Invalid Interpretation Code 98-107 [facility] Work Phone: [phone] CO2 32.0 mmol/L Invalid Interpretation Code 21.0-32.0 [facility] Work Phone: [phone] CO2 ppres (BldV) 32.0 mmol/L 21.0-32.0 [facility] Work Phone: [phone] Creatinine 1.12 mg/dL Invalid Interpretation Code 0.70-1.30 [facility] Work Phone: [phone] eGFR (non-black) 91 mL/min/{1.73_m2} Invalid Interpretation Code >60 [facility] Work Phone: [phone] eGFR (non-black) 75 mL/min/{1.73_m2} Invalid Interpretation Code >60 [facility] Work Phone: [phone] EST GFR - AA 91 mL/min >60 [facility] Work Phone: [phone] Glucose 101 mg/dL Invalid Interpretation Code 70-110 [facility] Work Phone: [phone] Glucose mass conc 101 mg/dL 70-110 [facility] Work Phone: [phone] Potassium 4.5 mmol/L Invalid Interpretation Code 3.5-5.1 [facility] Work Phone: [phone] Sodium 142 mmol/L Invalid Interpretation Code 136-145 [facility] Work Phone: [phone] Urea nitrogen 16 mg/dL Invalid Interpretation Code 7-18 [facility] Work Phone: [phone] Lab Report: Lipid Profileon 04-27-2017 Cholesterol 135 mg/dL Invalid Interpretation Code 200 [facility] Work Phone: [phone] HDL Cholesterol 35 mg/dL Low [facility] Work Phone: [phone] LDL Cholesterol 81 mg/dL Invalid Interpretation Code 0-130 [facility] Work Phone: [phone] Triglyceride 97 mg/dL Invalid Interpretation Code [facility] Work Phone: [phone] very low density lipoproteins 19 mg/dL Invalid Interpretation Code 5-40 [facility] Work Phone: [phone] Lab Report: Liver Profileon 04-27-2017 Alanine aminotransferase (ALT) 56 U/L Invalid Interpretation Code 12-78 [facility] Work Phone: [phone] Albumin 3.7 g/dL Invalid Interpretation Code 3.4-5.0 [facility] Work Phone: [phone] Alkaline phosphatase (ALP) 100 U/L Invalid Interpretation Code 45-117 [facility] Work Phone: [phone] ALP enzyme act/vol (Bld) 100 U/L 45-117 [facility] Work Phone: [phone] Aspartate aminotransferase (AST) 17 U/L Invalid Interpretation Code 15-37 [facility] Work Phone: [phone] Bilirubin (direct) 0.13 mg/dL Invalid Interpretation Code 0.00-0.30 [facility] Work Phone: [phone] Bilirubin (total) 0.70 mg/dL Invalid Interpretation Code 0.20-1.00 [facility] Work Phone: [phone] Globulin 3.6 g/dL High 2.3-3.5 [facility] Work Phone: [phone] Globulin mass conc (S) 3.6 g/dL High 2.3-3.5 [facility] Work Phone: [phone] Protein 7.3 g/dL Invalid Interpretation Code 6.4-8.2 [facility] Work Phone: [phone] Office Visiton 04-27-2017 Dietary management education, guidance, and counseling (procedure) yes Invalid Interpretation Code [facility] Work Phone: [phone] Documentation of current medications (procedure) Done Invalid Interpretation Code [facility] Work Phone: [phone] Fall risk assessment No Invalid Interpretation Code [facility] Work Phone: [phone] Protein mass conc yes [facility] Work Phone: [phone] Smoking cessation education (procedure) yes Invalid Interpretation Code [facility] Work Phone: [phone] Tobacco smoking status NHIS Current every day smoker [facility] Work Phone: [phone] Tobacco use CPHS Current every day smoker Invalid Interpretation Code [facility] Phone: [phone] Office Visiton 02-06-2017 Documentation of current medications (procedure) Done Invalid Interpretation Code [facility] Work Phone: [phone] Fall risk assessment No Invalid Interpretation Code [facility] Work Phone: [phone] Replaced Document: [facility] E CG Observationson 02-06-2017 EKG QRS axis 2 deg [facility] Work Phone: [phone] electrocardiogram interpretation 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 ABNORMAL [facility] Work Phone: [phone] P [place] 54 deg [facility] Work Phone: [phone] P wave axis, electrocardiogram 54 deg Invalid Interpretation Code [facility] Work Phone: SD Interval 160 ms [facility] Work Phone: SD interval, electrocardiogram 160 ms Invalid Interpretation Code [facility] Work Phone: [phone] Pulse (Heart Rate) 89 /min Invalid Interpretation Code [facility] Work Phone: QRS axis, electrocardiogram 2 deg Invalid Interpretation Code [facility] Work Phone: [phone] QRS Duration 96 ms [facility] Work Phone: [phone] QRS duration, electrocardiogram 96 ms Invalid Interpretation Code [facility] Work Phone: [phone] QT Interval new path ms [facility] Work Phone: [phone] QT interval, electrocardiogram new path ms Invalid Interpretation Code [facility] Work Phone: [phone] QTc [place] 396 ms [facility] Work Phone: [phone] T [place] 26 deg [facility] Work Phone: [phone] T wave axis, electrocardiogram 26 deg Invalid Interpretation Code [facility] Work Phone: [phone] Office Visiton 12-27-2016 Smoking cessation education (procedure) yes Invalid Interpretation Code [facility] Work Phone: [phone] Tobacco smoking status NHIS Current every day smoker [facility] Work Phone: [phone] Tobacco use CPHS Current every day smoker Invalid Interpretation Code [facility] Work Phone: [phone] Clinical Lists Update: Prelo manager flight 12-22-2016 Left ventricular Ejection fraction 60 % Invalid Interpretation Code [facility] Work Phone: [phone] Clinical Lists Update: Prelo manager flight 12-10-2016 Cholesterol [Mass/Vol] 191 mg/dL [facility] Work Phone: [phone] Cholesterol in HDL [Mass/Vol] 28 mg/dL Low [facility] Work Phone: Cholesterol in LDL [Mass/Vol] 121 mg/dL [facility] Work Phone: [phone] Lipoprotein.pre-beta [Mass/Vol] 42 mg/dL High [facility] Work Phone: [phone] Triglyceride [Mass/Vol] 211 mg/dL High [facility] Work Phone: [phone] Vital Signs Date Time Vital Sign Value Performing Clinician Faci lity 07-07-2025 10:45-0400 Body temperature 97.5 [degF] Dr. Beka Bowie MD Work Phone: [facility] 07-07-2025 10:45-0400 Diastolic blood pressure 71 mm[Hg] Dr. Beka Bowie MD Work Phone: [facility] 07-07-2025 10:45-0400 Heart rate 68 /min Dr. Beka Bowie MD Work Phone: [facility] 07-07-2025 10:45-0400 Respiratory rate 14 /min Dr. Beka Bowie MD Work Phone: [facility] 07-07-2025 10:45-0400 SaO2% (BldA) [Mass fraction] 95 % Dr. Beka Bowie MD Work Phone: [facility] 07-07-2025 10:45-0400 Systolic blood pressure 103 mm[Hg] Dr. Beka Bowie MD Work Phone: [facility] 07-07-2025 07:49-0400 Body temperature 97.3 [degF] Dr. Beka Bowie MD Work Phone: [facility] 07-07-2025 07:49-0400 Diastolic blood pressure 81 mm[Hg] Dr. Beka Bowie MD Work Phone: [facility] 07-07-2025 07:49-0400 Heart rate 79 /min Dr. Beka Bowie MD Work Phone: [facility] 07-07-2025 07:49-0400 Respiratory rate 18 /min Dr. Beka Bowie MD Work Phone: [facility] 07-07-2025 07:49-0400 SaO2% (BldA) [Mass fraction] 97 % Dr. Beka Bowie MD Work Phone: [facility] 07-07-2025 07:49-0400 Systolic blood pressure 121 mm[Hg] Dr. Beka Bowie MD Work Phone: [facility] 07-07-2025 05:00-0400 Body mass index (BMI) [Ratio] 34.4 kg/m2 Dr. Beka Bowie MD Work Phone: [facility] 07-07-2025 05:00-0400 Body weight 102.[address] Beka Bowie MD Work Phone: [facility] 07-06-2025 01:46-0400 Body height 172.[address] Beka Bowie MD Work Phone: [facility] 07-06-2025 00:00-0400 Diastolic blood pressure 114 mm[Hg] Dr. Beka Bowie MD Work Phone: [facility] 07-06-2025 00:00-0400 Heart rate 79 /min Dr. Beka Bowie MD Work Phone: [facility] 07-06-2025 00:00-0400 Respiratory rate 25 /min Dr. Beka Bowie MD Work Phone: [facility] 07-06-2025 00:00-0400 SaO2% (BldA) [Mass fraction] 97 % Dr. Beka Bowie MD Work Phone: [facility] 07-06-2025 00:00-0400 Systolic blood pressure 181 mm[Hg] Dr. Beka Bowie MD Work Phone: [facility] 07-05-2025 23:00-0400 Body temperature 98.5 [degF] Dr. Beka Bowie MD Work Phone: [facility] 07-05-2025 20:31-0400 Body height 172.[address] Beka Bowie MD Work Phone: [facility] 07-05-2025 20:31-0400 Body mass index (BMI) [Ratio] 35.4 kg/m2 Dr. Beka Bowie MD Work Phone: [facility] 07-05-2025 20:31-0400 Body weight 105.[address] Beka Bowie MD Work Phone: [facility] 02-11-2025 14:06-0400 Body mass index (BMI) [Ratio] 36.1 kg/m2 Dr. Beka Bowie MD Work Phone: [facility] 02-11-2025 13:05-0400 Heart rate 91 /min Dr. Beka Bowie MD Work Phone: [facility] 02-11-2025 13:00-0400 Diastolic blood pressure 120 mm[Hg] Dr. Beka Bowie MD Work Phone: [facility] 02-11-2025 13:00-0400 Respiratory rate 20 /min Dr. Beka Bowie MD Work Phone: [facility] 02-11-2025 13:00-0400 SaO2% (BldA) [Mass fraction] 97 % Dr. Beka Bowie MD Work Phone: [facility] 02-11-2025 13:00-0400 Systolic blood pressure 182 mm[Hg] Dr. Beka Bowie MD Work Phone: [facility] 02-11-2025 12:00-0400 Body temperature 98.2 [degF] Dr. Beka Bowie MD Work Phone: [facility] 02-11-2025 09:26-0400 Inhaled oxygen flow rate 2 L/min Dr. Beka Bowie MD Work Phone: [facility] 02-11-2025 09:17-0400 Body height 172.[address] Beka Bowie MD Work Phone: [facility] 02-11-2025 09:17-0400 Body weight 107.[address] eBka Bowie MD Work Phone: [facility] 02-11-2025 00:00-0400 Diastolic blood pressure 111 mm[Hg] Dr. Beka Bowie MD Work Phone: [facility] 02-11-2025 00:00-0400 Heart rate 101 /min Dr. Beka Bowie MD Work Phone: [facility] 02-11-2025 00:00-0400 Respiratory rate 21 /min Dr. Beka Bowie MD Work Phone: [facility] 02-11-2025 00:00-0400 SaO2% (BldA) [Mass fraction] 95 % Dr. Beka Bowie MD Work Phone: [facility] 02-11-2025 00:00-0400 Systolic blood pressure 174 mm[Hg] Dr. Beka Bowie MD Work Phone: [facility] 02-10-2025 23:33-0400 Body temperature 98.7 [degF] Dr. Beka Bowie MD Work Phone: [facility] 02-10-2025 18:13-0400 Body height 172.[address] Beka Bowie MD Work Phone: [facility] 02-10-2025 18:13-0400 Body mass index (BMI) [Ratio] 36.3 kg/m2 Dr. Beka Bowie MD Work Phone: [facility] 02-10-2025 18:13-0400 Body weight 108.[address] Beka Bowie MD Work Phone: [facility] 03-17-2024 07:29-0400 Body temperature 97.2 [degF] Rad [place] [employer].GENERAL TELLER Work Phone: [facility] 03-17-2024 07:29-0400 Body weight 107.9 kg Rad [place] [employer]NER.GENERAL TELLER Work Phone: [facility] 03-17-2024 07:29-0400 Diastolic blood pressure 90 mm[Hg] Rad [place] [employer]NER.GENERAL TELLER Work Phone: [facility] 03-17-2024 07:29-0400 Heart rate 72 /min Rad [place] HANDLE T[employer]NER.GENERAL TELLER Work Phone: [facility] 03-17-2024 07:29-0400 Respiratory rate 16 /min Rad [place] HAND[employer] T[employer]NER.GENERAL TELLER Work Phone: [facility] 03-17-2024 07:29-0400 SaO2% (BldA) [Mass fraction] 98 % Rad [place] HANDLE TURNER.GENERAL TELLER Work Phone: [facility] 03-17-2024 07:29-0400 Systolic blood pressure 162 mm[Hg] Rad [place] HANDLE T[employer]NER.GENERAL TELLER Work Phone: [facility] 01-31-2024 16:49-0400 Body height 172.[address] Beka Bowie Work Phone: [facility] 01-31-2024 16:49-0400 Body mass index (BMI) [Ratio] 35.1 kg/m2 Dr. Beka Bowie Work Phone: [facility] 01-31-2024 16:49-0400 Body temperature 98.1 [degF] Dr. Beka Bowie Work Phone: [facility] 01-31-2024 16:49-0400 Body weight 104.[address] Beka Bowie Work Phone: [facility] 01-31-2024 16:49-0400 Diastolic blood pressure 90 mm[Hg] Dr. Beka Bowie Work Phone: [facility] 01-31-2024 16:49-0400 Heart rate 91 /min Dr. Beka Bowie Work Phone: [facility] 01-31-2024 16:49-0400 Respiratory rate 20 /min Dr. Beka Bowie Work Phone: [facility] 01-31-2024 16:49-0400 SaO2% (BldA) [Mass fraction] 95 % Dr. Beka Bowie Work Phone: [facility] 01-31-2024 16:49-0400 Systolic blood pressure 134 mm[Hg] Dr. Beka Bowie Work Phone: [facility] 01-15-2024 08:57-0500 Body mass index (BMI) [Ratio] 35.4 kg/m2 Dr. Beka Bowie Work Phone: [facility] 01-15-2024 08:57-0500 Body weight 105.[address] Beka Bowie Work Phone: [facility] 01-15-2024 08:57-0500 Diastolic blood pressure 83 mm[Hg] Dr. Beka Bowie Work Phone: [facility] 01-15-2024 08:57-0500 Heart rate 80 /min Dr. Beka Bowie Work Phone: [facility] 01-15-2024 08:57-0500 Respiratory rate 18 /min Dr. Beka Bowie Work Phone: [facility] 01-15-2024 08:57-0500 SaO2% (BldA) [Mass fraction] 94 % Dr. Beka Bowie Work Phone: [facility] 01-15-2024 08:57-0500 Systolic blood pressure 134 mm[Hg] Dr. Beka Bowie Work Phone: [facility] 12-28-2023 11:13-0500 Body height 172.[address] Beka Bowie Work Phone: [facility] 12-28-2023 11:13-0500 Body mass index (BMI) [Ratio] 33.9 kg/m2 Dr. Beka Bowie Work Phone: [facility] 12-28-2023 11:13-0500 Body temperature 96.8 [degF] Dr. Beka Bowie Work Phone: [facility] 12-28-2023 11:13-0500 Body weight 101.[address] Beka Bowie Work Phone: [facility] 12-28-2023 11:13-0500 Diastolic blood pressure 90 mm[Hg] Dr. Beka Bowie Work Phone: [facility] 12-28-2023 11:13-0500 Heart rate 75 /min Dr. Beka Bowie Work Phone: [facility] 12-28-2023 11:13-0500 Respiratory rate 18 /min Dr. Beka Bowie Work Phone: [facility] 12-28-2023 11:13-0500 SaO2% (BldA) [Mass fraction] 95 % Dr. Beka Bowie Work Phone: [facility] 12-28-2023 11:13-0500 Systolic blood pressure 176 mm[Hg] Dr. Beka Bowie Work Phone: [facility] 12-26-2023 08:00-0500 Body temperature 98.5 [degF] Dr. Beka Bowie Work Phone: [facility] 12-26-2023 08:00-0500 Diastolic blood pressure 74 mm[Hg] Dr. Beka oBwie Work Phone: [facility] 12-26-2023 08:00-0500 Heart rate 80 /min Dr. Beka Bowie Work Phone: [facility] 12-26-2023 08:00-0500 Respiratory rate 14 /min Dr. Beka Bowie Work Phone: [facility] 12-26-2023 08:00-0500 SaO2% (BldA) [Mass fraction] 96 % Dr. Beka Bowie Work Phone: [facility] 12-26-2023 08:00-0500 Systolic blood pressure 181 mm[Hg] Dr. Beka Bowie Work Phone: [facility] 12-26-2023 07:35-0500 Inhaled oxygen flow rate 2 L/min Dr. Beka Bowie Work Phone: [facility] 12-24-2023 16:28-0500 Body height 172.[address] Beka Bowie Work Phone: [facility] 12-24-2023 16:28-0500 Body mass index (BMI) [Ratio] 34.4 kg/m2 Dr. Beka Bowie Work Phone: [facility] 12-24-2023 16:28-0500 Body weight 102.[address] Beka Bowie Work Phone: [facility] 12-24-2023 15:25-0500 Body temperature 96 [degF] Dr. Beka Bowie Work Phone: [facility] 12-24-2023 15:25-0500 Diastolic blood pressure 108 mm[Hg] Dr. Beka Bowie Work Phone: [facility] 12-24-2023 15:25-0500 Heart rate 100 /min Dr. Beka Bowie Work Phone: [facility] 12-24-2023 15:25-0500 Respiratory rate 20 /min Dr. Beka Bowie Work Phone: [facility] 12-24-2023 15:25-0500 SaO2% (BldA) [Mass fraction] 96 % Dr. Beka Bowie Work Phone: [facility] 12-24-2023 15:25-0500 Systolic blood pressure 212 mm[Hg] Dr. Beka Bowie Work Phone: [facility] 12-24-2023 15:09-0500 Body mass index (BMI) [Ratio] 35.5 kg/m2 Dr. Beka Bowie Work Phone: [facility] 12-24-2023 15:09-0500 Body weight 106.[address] Beka Bowie Work Phone: [facility] 12-24-2023 12:19-0500 Body height 172.[address] Beka Bowie Work Phone: [facility] 12-06-2023 15:15-0500 Body height 172.[address] Beka Bowie Work Phone: [facility] 12-06-2023 15:15-0500 Body mass index (BMI) [Ratio] 35.4 kg/m2 Dr. Beka Bowie Work Phone: [facility] 12-06-2023 15:15-0500 Body temperature 98.3 [degF] Dr. Beka Bowie Work Phone: [facility] 12-06-2023 15:15-0500 Body weight 105.[address] Beka Bowie Work Phone: [facility] 12-06-2023 15:15-0500 Diastolic blood pressure 102 mm[Hg] Dr. Beka Bowie Work Phone: [facility] 12-06-2023 15:15-0500 Heart rate 83 /min Dr. Beka Bowie Work Phone: [facility] 12-06-2023 15:15-0500 Respiratory rate 18 /min Dr. Beka Bowie Work Phone: [facility] 12-06-2023 15:15-0500 SaO2% (BldA) [Mass fraction] 97 % Dr. Beka Bowie Work Phone: [facility] 12-06-2023 15:15-0500 Systolic blood pressure 154 mm[Hg] Dr. Beka Bowie Work Phone: [facility] 11-21-2023 10:41-0500 Diastolic blood pressure 77 mm[Hg] [facility] 11-21-2023 10:41-0500 Heart rate 71 /min [facility] 11-21-2023 10:41-0500 Respiratory rate 18 /min [facility] 11-21-2023 10:41-0500 SaO2% (BldA) [Mass fraction] 97 % [facility] 11-21-2023 10:41-0500 Systolic blood pressure 133 mm[Hg] [facility] 11-21-2023 06:38-0500 Body height 172.72 cm [facility] 11-21-2023 06:38-0500 Body mass index (BMI) [Ratio] 35.2 kg/m2 [facility] 11-21-2023 06:38-0500 Body temperature 97 [degF] [facility] 11-21-2023 06:38-0500 Body weight 104.9 kg [facility] 06-26-2022 13:25-0400 Diastolic blood pressure 92 mm[Hg] Dr. Beka Bowie Work Phone: [facility] Work Phone: 06-26-2022 13:25-0400 Heart rate 75 /min Dr. Beka Bowie Work Phone: [facility] Work Phone: 06-26-2022 13:25-0400 Respiratory rate 16 /min Dr. Beka Bowie Work Phone: [facility] Work Phone: 06-26-2022 13:25-0400 SaO2% (BldA) [Mass fraction] 95 % Dr. Beka Bowie Work Phone: [facility] Work Phone: 06-26-2022 13:25-0400 Systolic blood pressure 159 mm[Hg] Dr. Beka Bowie Work Phone: [facility] Work Phone: 06-26-2022 12:00-0400 Body temperature 98.1 [degF] Dr. Beka Bowie Work Phone: [facility] Work Phone: 06-26-2022 09:12-0400 Body height 172.[address] Beka Bowie Work Phone: [facility] Work Phone: 06-26-2022 09:12-0400 Body weight 101.[address] Beka Bowie Work Phone: [facility] Work Phone: 06-26-2022 04:53-0400 Body mass index (BMI) [Ratio] 34 kg/m2 Dr. Beka Bowie Work Phone: [facility] Work Phone: 06-26-2022 04:16-0400 Diastolic blood pressure 120 mm[Hg] Dr. Beka Bowie Work Phone: [facility] Work Phone: 06-26-2022 04:16-0400 Heart rate 89 /min Dr. Beka Bowie Work Phone: [facility] Work Phone: 06-26-2022 04:16-0400 Systolic blood pressure 198 mm[Hg] Dr. Beka Bowie Work Phone: [facility] Work Phone: 06-26-2022 04:15-0400 Body temperature 98.7 [degF] Dr. Beka Bowie Work Phone: [facility] Work Phone: 06-26-2022 04:15-0400 Respiratory rate 19 /min Dr. Beka Bowie Work Phone: [facility] Work Phone: 06-26-2022 04:15-0400 SaO2% (BldA) [Mass fraction] 91 % Dr. Beka Bowie Work Phone: [facility] Work Phone: 06-26-2022 01:03-0400 Body height 172.[address] Beka Bowie Work Phone: [facility] Work Phone: 06-26-2022 01:03-0400 Body mass index (BMI) [Ratio] 34 kg/m2 Dr. Beka Bowie Work Phone: [facility] Work Phone: 06-26-2022 01:03-0400 Body weight 101.[address] Beka Bowie Work Phone: [facility] Work Phone: 06-08-2022 16:11-0400 Body height 172.[address] Beka Bowie Work Phone: [facility] Work Phone: 06-08-2022 16:11-0400 Body mass index (BMI) [Ratio] 32.1 kg/m2 Dr. Beka Bowie Work Phone: [facility] Work Phone: 06-08-2022 16:11-0400 Body temperature 97.1 [degF] Dr. Beka Bowie Work Phone: [facility] Work Phone: 06-08-2022 16:11-0400 Body weight 95.[address] Beka Bowie Work Phone: [facility] Work Phone: 06-08-2022 16:11-0400 Diastolic blood pressure 90 mm[Hg] Dr. Beka Bowie Work Phone: [facility] Work Phone: 06-08-2022 16:11-0400 Heart rate 82 /min Dr. Beka Bowie Work Phone: [facility] Work Phone: 06-08-2022 16:11-0400 Respiratory rate 15 /min Dr. Beka Bowie Work Phone: [facility] Work Phone: 06-08-2022 16:11-0400 SaO2% (BldA) [Mass fraction] 95 % Dr. Beka Bowie Work Phone: [facility] Work Phone: 06-08-2022 16:11-0400 Systolic blood pressure 140 mm[Hg] Dr. Beka Bowie Work Phone: [facility] Work Phone: 06-05-2022 11:27-0400 Body mass index (BMI) [Ratio] 33 kg/m2 Dr. Beka Bowie Work Phone: [facility] Work Phone: 06-05-2022 11:27-0400 Body weight 98.[address] Beka Bowie Work Phone: [facility] Work Phone: 06-05-2022 11:27-0400 Diastolic blood pressure 110 mm[Hg] Dr. Beak Bowie Work Phone: [facility] Work Phone: 06-05-2022 11:27-0400 Heart rate 80 /min Dr. Beka Bowie Work Phone: [facility] Work Phone: 06-05-2022 11:27-0400 Systolic blood pressure 160 mm[Hg] Dr. Beka Bowie Work Phone: [facility] Work Phone: 04-27-2022 14:15-0400 Diastolic blood pressure 91 mm[Hg] Dr. Beka Bowie Work Phone: [facility] Work Phone: 04-27-2022 14:15-0400 Heart rate 85 /min Dr. Beka Bowie Work Phone: [facility] Work Phone: 04-27-2022 14:15-0400 Respiratory rate 16 /min Dr. Beka Bowie Work Phone: [facility] Work Phone: 04-27-2022 14:15-0400 SaO2% (BldA) [Mass fraction] 94 % Dr. Beka Bowie Work Phone: [facility] Work Phone: 04-27-2022 14:15-0400 Systolic blood pressure 159 mm[Hg] Dr. Beka Bowie Work Phone: [facility] Work Phone: 04-27-2022 13:30-0400 Diastolic blood pressure 95 mm[Hg] Dr. Beka Bowie Work Phone: [facility] Work Phone: 04-27-2022 13:30-0400 Heart rate 81 /min Dr. Beka Bowie Work Phone: [facility] Work Phone: 04-27-2022 13:30-0400 Respiratory rate 16 /min Dr. Beka Bowie Work Phone: [facility] Work Phone: 04-27-2022 13:30-0400 SaO2% (BldA) [Mass fraction] 96 % Dr. Beka Bowie Work Phone: [facility] Work Phone: 04-27-2022 13:30-0400 Systolic blood pressure 167 mm[Hg] Dr. Beka Bowie Work Phone: [facility] Work Phone: 04-27-2022 09:45-0400 Body temperature 98 [degF] Dr. Beka Bowie Work Phone: [facility] Work Phone: 04-27-2022 09:42-0400 Body height 172.[address] Beka Bowie Work Phone: [facility] Work Phone: 04-27-2022 09:42-0400 Body mass index (BMI) [Ratio] 32.1 kg/m2 Dr. Beka Bowie Work Phone: [facility] Work Phone: 04-27-2022 09:42-0400 Body weight 95.[address] Beka Bowie Work Phone: [facility] Work Phone: 04-27-2022 09:03-0400 Diastolic blood pressure 104 mm[Hg] Dr. Beka Bowie Work Phone: [facility] Work Phone: 04-27-2022 09:03-0400 Systolic blood pressure 134 mm[Hg] Dr. Beka Bowie Work Phone: [facility] Work Phone: 04-27-2022 08:49-0400 Body temperature 97.9 [degF] Dr. Beka Bowie Work Phone: [facility] Work Phone: 04-27-2022 08:49-0400 Heart rate 68 /min Dr. Beka Bowie Work Phone: [facility] Work Phone: 04-27-2022 08:49-0400 Respiratory rate 16 /min Dr. Beka Bowie Work Phone: [facility] Work Phone: 04-27-2022 08:49-0400 SaO2% (BldA) [Mass fraction] 94 % Dr. Beka Bowie Work Phone: [facility] Work Phone: 04-27-2022 07:11-0400 Body height 172.[address] Beka Bowie Work Phone: [facility] Work Phone: 04-27-2022 07:11-0400 Body mass index (BMI) [Ratio] 32.8 kg/m2 Dr. Beka Bowie Work Phone: [facility] Work Phone: 04-27-2022 07:11-0400 Body weight 97.[address] Beka Bowie Work Phone: [facility] Work Phone: 03-30-2022 15:33-0400 Body mass index (BMI) [Ratio] 32.5 kg/m2 Dr. Beka Bowie Work Phone: [facility] Work Phone: 03-30-2022 15:33-0400 Body temperature 96.6 [degF] Dr. Beka Bowie Work Phone: [facility] Work Phone: 03-30-2022 15:33-0400 Body weight 97.[address] Beka Bowie Work Phone: [facility] Work Phone: 03-30-2022 15:33-0400 Diastolic blood pressure 84 mm[Hg] Dr. Beka Bowie Work Phone: [facility] Work Phone: 03-30-2022 15:33-0400 Heart rate 75 /min Dr. Beka Bowei Work Phone: [facility] Work Phone: 03-30-2022 15:33-0400 Respiratory rate 16 /min Dr. Beka Bowie Work Phone: [facility] Work Phone: 03-30-2022 15:33-0400 SaO2% (BldA) [Mass fraction] 95 % Dr. Beka Bowie Work Phone: [facility] Work Phone: 03-30-2022 15:33-0400 Systolic blood pressure 130 mm[Hg] Dr. Beka Bowie Work Phone: [facility] Work Phone: 03-30-2022 15:33-0400 Body mass index (BMI) [Ratio] 32.5 kg/m2 Dr. Beka Bowie Work Phone: [facility] Work Phone: 03-30-2022 15:33-0400 Body temperature 96.6 [degF] Dr. Beka Bowie Work Phone: [facility] Work Phone: 03-30-2022 15:33-0400 Body weight 97.[address] Beka Bowie Work Phone: [facility] Work Phone: 03-30-2022 15:33-0400 Diastolic blood pressure 84 mm[Hg] Dr. Bkea Bowie Work Phone: [facility] Work Phone: 03-30-2022 15:33-0400 Heart rate 75 /min Dr. Beka Bowie Work Phone: [facility] Work Phone: 03-30-2022 15:33-0400 Respiratory rate 16 /min Dr. Beka Bowie Work Phone: [facility] Work Phone: 03-30-2022 15:33-0400 SaO2% (BldA) [Mass fraction] 95 % Dr. eBka Bowie Work Phone: [facility] Work Phone: 03-30-2022 15:33-0400 Systolic blood pressure 130 mm[Hg] Dr. Beka Bowie Work Phone: [facility] Work Phone: 02-15-2022 16:08-0400 Body mass index (BMI) [Ratio] 32.9 kg/m2 Dr. Beka Bowie Work Phone: [facility] Work Phone: 02-15-2022 16:08-0400 Body temperature 98.2 [degF] Dr. Beka Bowie Work Phone: [facility] Work Phone: 02-15-2022 16:08-0400 Body weight 98.[address] Beka Bowie Work Phone: [facility] Work Phone: 02-15-2022 16:08-0400 Diastolic blood pressure 82 mm[Hg] Dr. Beka Bowie Work Phone: [facility] Work Phone: 02-15-2022 16:08-0400 Heart rate 79 /min Dr. Beka Bowie Work Phone: [facility] Work Phone: 02-15-2022 16:08-0400 Respiratory rate 18 /min Dr. Beka Bowie Work Phone: [facility] Work Phone: 02-15-2022 16:08-0400 SaO2% (BldA) [Mass fraction] 96 % Dr. Beka Bowie Work Phone: [facility] Work Phone: 02-15-2022 16:08-0400 Systolic blood pressure 162 mm[Hg] Dr. Beka Bowie Work Phone: [facility] Work Phone: 01-13-2022 14:23-0500 Body mass index (BMI) [Ratio] 31.6 kg/m2 Dr. Beka Bowie Work Phone: [facility] Work Phone: 01-13-2022 14:18-0500 Body weight 94.[address] Beka Bowie Work Phone: [facility] Work Phone: 01-13-2022 14:18-0500 Diastolic blood pressure 90 mm[Hg] Dr. Beka Bowie Work Phone: [facility] Work Phone: 01-13-2022 14:18-0500 Heart rate 86 /min Dr. Beka Bowie Work Phone: [facility] Work Phone: 01-13-2022 14:18-0500 Respiratory rate 18 /min Dr. Beka Bowie Work Phone: [facility] Work Phone: 01-13-2022 14:18-0500 SaO2% (BldA) [Mass fraction] 95 % Dr. Beka Bowie Work Phone: [facility] Work Phone: 01-13-2022 14:18-0500 Systolic blood pressure 158 mm[Hg] Dr. Beka Bowie Work Phone: [facility] Work Phone: 07-17-2017 10:05-0400 BMI (Body [...] Phone: 04-27-2017 09:15-0400 BP Diastolic 104 mm[Hg] Eric Flores MD [facility] Work Phone: 04-27-2017 09:15-0400 BP Systolic 178 mm[Hg] Eric Flores MD [facility] Work Phone: 04-27-2017 09:15-0400 Height 172.72 cm Eric Flores MD [facility] Work Phone: 04-27-2017 09:15-0400 Pulse (Heart Rate) 78 /min Eric Flores MD [facility] Work Phone: 04-27-2017 09:15-0400 Respiratory Rate 18 /min Eric Flores MD [facility] Work Phone: 04-27-2017 09:15-0400 Weight 104.33 kg Eric Flores MD [facility] Work Phone: 02-06-2017 14:25-0400 Heart rate 89 /min Harumi DeFinallan [facility] Work Phone: 02-06-2017 14:17-0400 BMI (Body Mass Index) 34.39 kg/m2 Harumi Carmella [facility] Work Phone: 02-06-2017 14:17-0400 Body weight 102.6 kg Harumi DeFinis [facility] Work Phone: 02-06-2017 14:17-0400 BP Diastolic 90 mm[Hg] Harumi DeFinis [facility] Work Phone: 02-06-2017 14:17-0400 BP Systolic 140 mm[Hg] Harumi DeFinis [facility] Work Phone: 02-06-2017 14:17-0400 Height 172.72 cm Harumi DeFinis [facility] Work Phone: 02-06-2017 14:17-0400 Pulse (Heart Rate) 88 /min Harumi DeFinis [facility] Work Phone: 02-06-2017 14:17-0400 Pulse Oximetry 98 % Harumi DeFinis [facility] Work Phone: 02-06-2017 14:17-0400 Respiratory Rate 24 /min Valeriano Weir [facility] Work Phone: 02-06-2017 14:170400 Weight 102.6 kg Eric Flores MD [facility] Work Phone: 12-27-2016 09:050 BSA (Body Surface Area) 2.12 m2 Valeriano Weir [facility] Work Phone: Encounters Encounter Date Encounter Type Care Provider Facility Start: 09-22-2025 End: 09-22-2025 Emergency department patient visit [facility] Facility:[facility] Start: 07-07-2025 Non-patient / Non-visit [facility]. Socorro [facility] Start: 07-07-[address] Beka Bowie MD Work Phone: -[facility] Start: 07-06-2025 Non-patient / Non-visit Dr. Hilda cannon MD [facility] Start: 07-06-2025 Non-patient / Non-visit Dr. Makenzie Ortega MD -[facility] Work Phone: Start: 07-06-2025 End: 07-07-2025 ambulatory [facility] Facility:[facility] Start: 07-06-2025 End: 07-07-2025 Evaluation and management of inpatient Dr. Mitchell Deras DO -Progressive Care Unit Work Phone: Start: 07-06-2025 End: 07-07-[address] Beka Bowie MD Work Phone: -[facility] Unit Start: 02-19-2025 ambulatory Efchico Bowie Facili ty:[facility] Start: 02-11-2025 ambulatory Efchico Bowie Facili ty:[facility] Start: 02-11-2025 Non-patient / Non-visit Dr. Socorro [facility] Start: 02-11-2025 ambulatory Beka Bowie Facili ty:[facility] Start: 02-11-2025 Non-patient / Non-visit Dr. Brennon shen [facility] Work Phone: Start: 02-11-2025 ambulatory Beka Bowie Facili ty:[facility] Start: 02-11-2025 End: 02-11-2025 Evaluation and management of inpatient Dr. Mitchell Deras DO -Intensive Care Unit Work Phone: Start: 10-12-2024 End: 10-12-2024 ambulatory Beka Bowie Facility:[facility] Start: 10-11-2024 ambulatory Beka Hermosilloi ty:[facility] Start: 10-11-2024 End: 10-13-2024 Evaluation and management of inpatient Mitchell Deras Facility:[facility] Start: 09-25-2024 End: 09-25-2024 Emergency department patient visit [facility] Facility:[facility] Start: 03-17-2024 End: 03-17-2024 ambulatory Facility:[facility] Start: 03-17-2024 End: 03-17-2024 Patient encounter procedure Rad Renee APRN.CNP Work Phone: [facility] Comment on above: Bacterial conjunctiv itis (Primary Dx) Start: 02-08-2024 End: 02-08-[address] Beka Bowie Work Phone: [facility] Work Phone: Start: 02-08-2024 End: 02-08-[address] Beka Bowie Work Phone: [facility] Work Phone: Start: 01-31-2024 End: 01-31-[address] Beka Bowie Work Phone: [facility] Work Phone: Start: 01-15-2024 End: 01-15-[address] Beka Bowie Work Phone: [facility] Work Phone: Start: 12-31-2023 End: 12-31-[address] Beka Bowie Work Phone: [facility] Work Phone: Start: 12-31-2023 End: 12-31-[address] Beka Bowie Work Phone: [facility]-Laboratory Work Phone: Start: 12-28-2023 End: 12-28-[address] Beka Bowie Work Phone: [facility] Work Phone: Start: 12-26-2023 Non-patient / Non-visit Dr. Mukul Bowie Work Phone: [facility] Start: 12-25-2023 Non-patient / Non-visit Dr. Mukul Bowie Work Phone: [facility] Inpatient Physicians Work Phone: Start: 12-25-2023 Non-patient / Non-visit Dr. Mukul Bowie Work Phone: [facility] Start: 12-24-2023 End: 12-26-2023 Evaluation and management of inpatient Dr. Beka Bowie Work Phone: [facility]-Progressive Care Unit Work Phone: Start: 12-24-2023 Non-patient / Non-visit Dr. Mukul Bowie Work Phone: [facility] Inpatient Physicians Work Phone: Start: 12-12-2023 Non-patient / Non-visit Dr. Mukul Bowie Work Phone: [facility] Work Phone: Start: 12-11-2023 Non-patient / Non-visit Dr. Mukul Bowie Work Phone: [facility] Start: 12-11-2023 End: 12-11-[address] Beka Bowie Work Phone: [facility] Work Phone: Start: 12-11-2023 End: 12-11-[address] [facility] Bow[facility] Start: 12-06-2023 End: 12-06-[address] Beka Bowie Work Phone: [facility] Work Phone: Start: 11-21-2023 End: 11-21-2023 [facility] Start: 06-26-2022 Non-patient / Non-visit Dr. Mukul Bowie Work Phone: [facility] Start: 06-26-2022 Non-patient / Non-visit Dr. Mukul Bowie Work Phone: [facility] In[facility] Physicians Start: 06-26-2022 End: 06-26-2022 Evaluation and management of inpatient Dr. Beka Bowie Work Phone: [facility]-Intensive Care Unit Start: 06-15-2022 End: 06-15-[address] Beka Bowie Work Phone: [facility] Start: 06-08-2022 End: 06-08-[address] Beka Bowie Work Phone: [facility] Internal Medicine Start: 06-05-2022 End: 06-05-[address] Beka Bowie Work Phone: [facility] Start: 04-27-2022 Non-patient / Non-visit Dr. Mukul Bowie Work Phone: [facility] In[facility] Start: 04-27-2022 End: 04-27-2022 Evaluation and management of inpatient Dr. Beka Bowie [facility] Start: 04-27-2022 Evaluation and manag ement of inpatient Dr. Beka Bowie Work Phone: [facility] Start: 03-30-2022 End: 03-30-[address] Beka Bowie Work Phone: [facility] Endocrinology Start: 02-15-2022 End: 02-15-[address] Beka Bowie Work Phone: [facility] Internal Medicine Start: 01-18-2022 End: 01-18-[address] Beka Bowie Work Phone: [facility]-Laboratory, Specimen Start: 01-17-2022 Non-patient / Non-visit Dr. Mukul Bowie Work Phone: [facility] Start: 01-17-2022 End: 01-17-[address] Beka Bowie Work Phone: [facility]Cardiovascular Services Start: 01-13-2022 End: 01-13-[address] Beka Bowie Work Phone: [facility] Procedures Date Procedure Procedure Detail Performing Clinician Start: 07-07-[address] Beka Bowie MD Work Phone: Start: 07-06-2025 History of placement of stent for coronary artery disease History of coronary artery stent placement Dr. Beka Bowie MD Work Phone: Comment on above: WAN-OM2 w/ 2.75 x 14 mm Resolute Integrity 12/11/2016 WAN Mid D1 w/ 2.5 x 18 mm Resolute Integrity and WAN Prox LAD w/ 3.0 x 15 mm Resolute Integrity 02/21/19; PCI-WAN-Mid LCx w/ 2.25 x 12 mm Synergy MR Stent and 3.0 x 16 mm Synergy MR Stent 03/18/2020; QWP-CGS-CCTN w/ 3.0 x 12 mm Synergy Stent and WAN-Prox RCA w/ 3.5 x 20 MM Synergy Stent 11/22/2020; WAN mid LAD w/3.0 X 24 MM Synergy MR Stent 11/18/2021, WAN Prox LAD using Linn Riley 3.0x12 mm and WAN Prox OM1 using Linn Riley 2.5x18 mm 12/25/23; NSTEMI Culprit lesion 80% Denovo stenosis status post IVUS guided PCI of the mid LAD with 3.5 x 26 Flaco WAN, postdilated with a 4.0 NC balloon 07/06/25 Start: 07-06-2025 Coagulation time, activated Dr. Beka Bowie MD Work Phone: Start: 07-06-2025 Radionuclide imaging of perfusion of myocardium under exercise stress Dr. Beka Bowie MD Work Phone: Start: 07-06-2025 Serum inorganic phos phate measurement Dr. Beka Bowie MD Work Phone: Start: 07-06-2025 Methadone measurement, urine Dr. Beka Bowie MD Work Phone: Start: 07-06-2025 Urnls dip stick/tabl et reagent auto microscopy Dr. Beka Bowie MD Work Phone: Start: 07-06-2025 CT angiography of he ad and neck Dr. Beka Bowie MD Work Phone: Start: 07-05-2025 Plain chest X-ray Dr. Tika Bowie MD Work Phone: Start: 07-05-2025 D-dimer assay, quantitative Dr. Beka Bowie MD Work Phone: Comment on above: D-Dimer ELEVATED (>0 .49): Additional studies and clinicalassessments are indicated to conclude diagnosis of:Deep Vein Thrombosis (DVT) or Pulmonary Embolism (PE)CRITICAL VALUE CALLED TO [facility] CASE07/06/25 0143 Sally Srivastava.RESULTS READ BACK BY SAME. Start: 07-05-[address] Beka Bowie MD Work Phone: Start: 02-11-2025 Legionella pneumophi la antigen assay [...] MD Work Phone: Start: 12-31-2023 Investigation of tra nsfusion reaction Dr. Beka Bowie Work Phone: Start: 12-31-[address] Beka Bowie Work Phone: Start: [...] x 16 mm Synergy MR Stent 03/18/2020; [id number] w/ 3.0 x 12 mm Synergy Stent and WAN-Prox RCA w/ 3.5 x 20 MM Synergy Stent 11/22/2020; WAN mid LAD w/3.0 X 24 MM Synergy MR Stent 11/18/2021, WAN Prox LAD using Linn Riley 3.0x12 mm and WAN Prox OM1 using Flaco Riley 2.5x18 mm 12/25/23 Start: 12-24-2023 Plain chest [...] Lipid 1996 panel - S purnima or Plasma Rad Renee [employer] Work Phone: Start: 04-27-2017 End: 04-27-2017 *BMP [...] months Renee Thomas Start: 02-06-2017 End: 02-06-2017 DIEGO Flores MD Start: 12-27-2016 End: 12-27-2016 Smoking cessation education Valeriano lemus Start: 12-27-2016 End: 12-27-2016 Follow Up Appt 4 months Renee Thomas Start: 12-27-2016 End: 12-27-2016 DIEGO Flores MD Start: 12-22-2016 Placement of stent i n coronary artery Coronary stent Valeriano Weir Plan of Treatment Date Care Activity Detail Author Start: 07-07-2025 Patient discharge [facility] Start: 07-07-2025 [facility] Start: 07-07-2025 Cardiac rehabilitation - phase 1 [facility] Start: 07-07-2025 Cardiac rehabilitation - phase 2 [facility] Start: 07-06-2025 Referral to emergency veterinary technician [facility] Start: 07-06-2025 Vitamin D, 1,25-dihydroxy measurement [facility] Start: 07-06-2025 Following clinical pathway protocol [facility] Start: 07-06-2025 Assessment of risk of venous thromboembolism [facility] Start: 07-06-2025 Care regimes management [facility] Start: 07-06-2025 Insertion of catheter into peripheral vein [facility] Start: 07-06-2025 Measuring intake and output [facility] Start: 07-06-2025 Notification of physician [facility] Start: 07-06-2025 Providing care according to standard [facility] Start: 07-06-2025 Provision of activity privileges [facility] Start: 07-06-2025 Referral to service [facility] Start: 07-06-2025 End: 07-06-2025 [facility] Start: 07-06-2025 CT angiography of head and neck CTA Head AND Neck W/ Contrast [facility] Start: 07-06-2025 Urinalysis complete panel - Urine [facility] Start: 07-06-2025 Verification routine [facility] Start: 07-06-2025 Admission procedure [facility] Start: 07-05-2025 Hospital admission, emergency, from emergency room, medical nature [facility] Start: 07-05-2025 [facility] Start: 02-11-2025 Patient discharge [facility] Start: 02-11-2025 Vitamin D, 1,25-dihydroxy measurement [facility] Start: 02-11-2025 Following clinical pathway protocol [facility] Start: 02-11-2025 Aspiration precautions [facility] Start: 02-11-2025 Cardiac monitoring [facility] Start: 02-11-2025 Catheterization of vein [facility] Start: 02-11-2025 Consultation [facility] Start: 02-11-2025 Continuous pulse oximetry [facility] Start: 02-11-2025 Elevation of head of bed [facility] Start: 02-11-2025 Exercises [facility] Start: 02-11-2025 Notification of physician [facility] Start: 02-11-2025 Oxygen therapy [facility] Start: 02-11-2025 Patient referral to dietitian [facility] Start: 02-11-2025 Referral to occupational therapist [facility] Start: 02-11-2025 Referral to service [facility] Start: 02-11-2025 Speech therapy assessment [facility] Start: 02-11-2025 Telemedicine consultation with patient [facility] Start: 02-11-2025 Tobacco use cessation education [facility] Start: 02-11-2025 End: 02-11-2025 [facility] Start: 02-11-2025 Vital signs measurements [facility] Start: 02-11-2025 MRI of brain with contrast Brain WITH Contrast [facility] Start: 02-11-2025 Thyroid stimulating hormone measurement [facility] Start: 02-11-2025 Vitamin D, 1,25-dihydroxy measurement [facility] Start: 02-11-2025 Admission procedure [facility] Start: 02-11-2025 Inhalation therapy procedure [facility] Start: 02-10-2025 [facility] Start: 07-20-2024 Influenza vaccination Influenza Vaccine (Season Ended) [facility] Start: 12-28-2023 Electrocardiographic procedure [facility] Start: 12-27-2023 Electrocardiographic procedure [facility] Start: 12-26-2023 Electrocardiographic procedure [facility] Start: 12-26-2023 Patient discharge [facility] Start: 12-26-2023 [facility] Start: 12-25-2023 Care planning and problem solving actions [facility] Start: 12-25-2023 Care planning and problem solving actions [facility] Start: 12-25-2023 Ambulation without limitation [facility] Start: 12-25-2023 Pulse taking [facility] Start: 12-25-2023 Cardiac monitoring [facility] Start: 12-25-2023 Cardiac rehabilitation - phase 1 [facility] Start: 12-25-2023 Cardiac rehabilitation - phase 2 [facility] Start: 12-25-2023 Notification of physician [facility] Start: 12-25-2023 Oxygen therapy [facility] Start: 12-25-2023 Patient discharge [facility] Start: 12-25-2023 Systemic arterial pressure monitoring [facility] Start: 12-25-2023 Taking patient vital signs [facility] Start: 12-25-2023 Vascular disease risk assessment [facility] Start: 12-25-2023 Vital signs measurements [facility] Start: 12-25-2023 End: 12-25-2023 [facility] Start: 12-25-2023 Patient referral [facility] Work Phone: Start: 12-25-2023 Continuous pulse oximetry [facility] Start: 12-25-2023 Preoperative care [facility] Start: 12-25-2023 Catheterization of vein [facility] Start: 12-25-2023 Medication not administered [facility] Start: 12-25-2023 Notification of physician [facility] Start: 12-25-2023 [facility] Start: 12-25-2023 Thyroid stimulating hormone measurement [facility] Start: 12-25-2023 [facility] Start: 12-24-2023 Following clinical pathway protocol [facility] Start: 12-24-2023 Care planning and problem solving actions [facility] Start: 12-24-2023 Assessment of risk of venous thromboembolism [facility] Start: 12-24-2023 Care regimes management [facility] Start: 12-24-2023 Electrocardiographic procedure [facility] Start: 12-24-2023 Inhalation therapy procedure [facility] Start: 12-24-2023 Insertion of catheter into peripheral vein [facility] Start: 12-24-2023 Measuring intake and output [facility] Start: 12-24-2023 Notification of physician [facility] Start: 12-24-2023 Oxygen therapy [facility] Start: 12-24-2023 Providing care according to standard [facility] Start: 12-24-2023 Provision of activity privileges [facility] Start: 12-24-2023 Referral to emergency veterinary technician [facility] Start: 12-24-2023 Tobacco use cessation education [facility] Start: 12-24-2023 [facility] Start: 12-24-2023 Verification routine [facility] Start: 12-24-2023 Admission procedure [facility] Start: 11-21-2023 [facility] Start: 11-21-2023 End: 11-21-2023 [facility] Start: 11-19-2023 Behavioral Health Screening Behavioral Health Screening [facility] Start: 07-20-2023 Covid-19 Vaccine () Covid-19 Vaccine () [facility] Start: 06-26-2022 Patient discharge [facility] Work Phone: Start: 06-26-2022 Partial thromboplastin time, activated [facility] Work Phone: Start: 06-26-2022 [facility] Work Phone: Start: 06-26-2022 Following clinical pathway protocol [facility] Work Phone: Start: 06-26-2022 Assessment of risk of venous thromboembolism [facility] Work Phone: Start: 06-26-2022 Care regimes management [facility] Work Phone: Start: 06-26-2022 Catheterization of vein [facility] Work Phone: Start: 06-26-2022 Elevation of head of bed [facility] Work Phone: Start: 06-26-2022 Inhalation therapy procedure [facility] Work Phone: Start: 06-26-2022 Insertion of catheter into peripheral vein [facility] Work Phone: Start: 06-26-2022 Measuring intake and output [facility] Work Phone: Start: 06-26-2022 Providing care according to standard [facility] Work Phone: Start: 06-26-2022 Vital signs measurements [facility] Work Phone: Start: 06-26-2022 [facility] Work Phone: Start: 06-26-2022 Admission procedure [facility] Work Phone: Start: 04-27-2022 Lipid panel Lipid Screening [facility] Start: 04-27-2022 End: 04-27-2022 Patient discharge [facility] Work Phone: Start: 04-27-2022 Cardiac monitoring [facility] Work Phone: Start: 04-27-2022 Cardiac rehabilitation - phase 1 [facility] Work Phone: Start: 04-27-2022 Notification of physician [facility] Work Phone: Start: 04-27-2022 Oxygen therapy [facility] Work Phone: Start: 04-27-2022 Systemic arterial pressure monitoring [facility] Work Phone: Start: 04-27-2022 Taking patient vital signs [facility] Work Phone: Start: 04-27-2022 Vascular disease risk assessment [facility] Work Phone: Start: 04-27-2022 Vital signs measurements [facility] Work Phone: Start: 04-27-2022 [facility] Work Phone: Start: 04-27-2022 Assessment of risk of venous thromboembolism [facility] Work Phone: Start: 04-27-2022 Insertion of catheter into peripheral vein [facility] Work Phone: Start: 04-27-2022 Measuring intake and output [facility] Work Phone: Start: 04-27-2022 Providing care according to standard [facility] Work Phone: Start: 04-27-2022 Provision of activity privileges [facility] Work Phone: Start: 04-27-2022 Tobacco use cessation education [facility] Work Phone: Start: 04-27-2022 [facility] Work Phone: Start: 04-27-2022 End: 04-27-2022 Referral to emergency veterinary technician [facility] Work Phone: Start: 04-27-2022 Admission procedure [facility] Work Phone: Start: 04-27-2022 Following clinical pathway protocol [facility] Work Phone: Start: 2021 Shingrix Vaccine (1 of 2) Shingrix Vaccine (1 of 2) [facility] Start: 11-09-2017 End: 11-09-2017 Appointment Appointment [facility] [employer] Work Phone: Start: 10-29-2017 End: 05-03-2017 *Hepatic Function Panel *Hepatic Function Panel [facility] [employer] Work Phone: Start: 10-29-2017 End: 05-03-2017 Lipid panel [AGGREGATE] *Lipid Profile CC PCP [facility] [employer] Work Phone: Start: 07-17-2017 End: 07-17-2017 [facility]ment [facility] Work Phone: Start: 07-13-2017 End: 07-13-2017 Appointment Appointment [facility] [employer] Work Phone: Start: 04-27-2017 End: 04-27-2017 Appointment Appointment [facility] [employer] [facility] Work Phone: Start: 04-27-2017 End: 04-27-2017 *BMP *BMP [facility] [employer] Work Phone: Start: 04-27-2017 End: 04-27-2017 *Hepatic Function Panel *Hepatic Function Panel [place] [employer] Phone: Start: 04-27-2017 End: 04-27-2017 Follow Up Appt 6 months Follow Up Appt 6 months [facility] [employer] Work Phone: Start: 04-27-2017 End: 04-27-2017 Lipid panel [AGGREGATE] *Lipid Profile CC PCP [facility] Work Phone: Start: 04-27-2017 End: 04-27-2017 MMM MMM [facility] Work Phone: Start: 02-06-2017 End: 02-06-2017 Electrocardiogram, complete EKG (In office) [facility] Work Phone: Start: 02-06-2017 End: 02-06-2017 Follow Up Appt 3 months Follow Up Appt 3 months [facility] Work Phone: Start: 02-06-2017 End: 02-06-2017 MMM MMM [facility] Work Phone: Start: 12-27-2016 End: 12-27-2016 *Hepatic Function Panel *Hepatic Function Panel [facility] Work Phone: Start: 12-27-2016 End: 12-27-2016 Follow Up Appt 4 months Follow Up Appt 4 months [facility] Work Phone: Start: 12-27-2016 End: 12-27-2016 Lipid 1996 panel *Lipid Profile CC PCP [facility] Work Phone: Start: 12-27-2016 End: 12-27-2016 MMM MMM [facility] Work Phone: Start: 2016 Diabetes Screening Diabetes Screening [facility] Start: 2016 Screening for malignant neoplasm of colon [facility] Start: 1990 Hepatitis B Vaccine (1 of 3 - 19+ 3-dose series) Hepatitis B Vaccine (1 of 3 - 19+ 3-dose series) [facility] Start: 1990 Urine microalbumin profile DTaP,Tdap,Td Vaccine (1 - Tdap) [facility] Start: 1989 Annual PCP Team Chronic Disease Visit Annual PCP Team Chronic Disease Visit [facility] Start: 1989 BP Controlled (<130/80) BP Controlled (<130/80) [facility] Start: 1989 Hepatitis C screening Hepatitis C Screening [facility] Start: 1989 HIV screening HIV Screening [facility] Start: 1977 Pneumococcal vaccination Pneumococcal Vaccine (1 of 2 - PCV) [facility] Alanine aminotransfe rase [Enzymatic activity/volume] in Serum or Plasma [facility] Albumin [Mass/volume ] in Serum or Plasma [facility] Alkaline phosphatase [Enzymatic activity/volume] in Serum or Plasma [facility] Amphetamine [Mass/vo lume] in Urine [facility] Amphetamines [Presen ce] in Urine by Screen method >1000 ng/mL [facility] Anion gap in Serum or Plasma [facility] Anion gap in Serum or Plasma [facility] Anion gap in Serum or Plasma [facility] Anion gap in Serum or Plasma [facility] Anion gap in Serum or Plasma [facility] Anion gap in Serum or Plasma [facility] Anion gap in Serum or Plasma [facility] Anion gap measurement [facility] Aspartate aminotrans ferase [Enzymatic activity/volume] in Serum or Plasma [facility] Benzodiazepine measu rement, urine [facility] Benzodiazepine measu rement, urine [facility] Bilirubin, total measurement [facility] BUN/Creatinine ratio [facility] BUN/Creatinine ratio [facility] BUN/Creatinine ratio [facility] BUN/Creatinine ratio [facility] BUN/Creatinine ratio [facility] BUN/Creatinine ratio [facility] BUN/Creatinine ratio [facility] BUN/Creatinine ratio [facility] Calcium [Mass/volume ] in Serum or Plasma [facility] Calcium [Mass/volume ] in Serum or Plasma [facility] Calcium [Mass/volume ] in Serum or Plasma [facility] Calcium [Mass/volume ] in Serum or Plasma [facility] Calcium [Mass/volume ] in Serum or Plasma [facility] Calcium [Mass/volume ] in Serum or Plasma [facility] Calcium [Mass/volume ] in Serum or Plasma [facility] Calcium [Mass/volume ] in Serum or Plasma [facility] Carbon dioxide, tota l [Moles/volume] in Central venous blood [facility] Carbon dioxide, tota l [Moles/volume] in Central venous blood [facility] Carbon dioxide, tota l [Moles/volume] in Central venous blood [facility] Carbon dioxide, tota l [Moles/volume] in Central venous blood [facility] Carbon dioxide, tota l [Moles/volume] in Central venous blood [facility] Carbon dioxide, tota l [Moles/volume] in Central venous blood [facility] Carbon dioxide, tota l [Moles/volume] in Central venous blood [facility] Carbon dioxide, tota l [Moles/volume] in Serum or Plasma [facility] Cardiac event recording [facility] Chloride [Moles/volu me] in Serum or Plasma [facility] Cholesterol [Mass/vo lume] in Serum or Plasma [facility] Cholesterol [Mass/vo lume] in Serum or Plasma [facility] Cholesterol in HDL [Mass/volume] in Serum or Plasma [facility] Cholesterol in HDL [Mass/volume] in Serum or Plasma [facility] Cholesterol in LDL [Mass/volume] in Serum or Plasma [facility] Cobalamin (Vitamin B 12) [Mass/volume] in Serum or Plasma [facility] Cocaine measurement, urine [facility] Cocaine measurement, urine W [facility] Creatinine [Mass/vol ume] in Serum or Plasma [facility] Creatinine [Mass/vol ume] in Serum or Plasma [facility] Creatinine [Mass/vol ume] in Serum or Plasma [facility] Creatinine [Mass/vol ume] in Serum or Plasma [facility] Creatinine [Mass/vol ume] in Serum or Plasma [facility] Creatinine [Mass/vol ume] in Serum or Plasma [facility] Creatinine [Mass/vol ume] in Serum or Plasma [facility] Creatinine [Moles/vo lume] in Serum or Plasma [facility] Erythrocyte mean cor puscular volume determination [facility] Erythrocyte mean cor puscular volume determination [facility] Erythrocyte mean cor puscular volume determination [facility] Erythrocyte mean cor puscular volume determination [facility] Erythrocyte mean cor puscular volume determination [facility] Erythrocyte mean cor puscular volume determination [facility] Erythrocyte mean cor puscular volume determination [facility] Erythrocyte mean cor puscular volume determination [facility] Ethanol [Mass/volume ] in Serum or Plasma [facility] fentaNYL [Presence] in Urine by Screen method [facility] Folate [Moles/volume ] in Serum or Plasma [facility] Glucose [Mass/volume ] in Serum or Plasma [facility] Glucose [Mass/volume ] in Serum or Plasma [facility] Glucose [Mass/volume ] in Serum or Plasma [facility] Glucose [Mass/volume ] in Serum or Plasma [facility] Glucose [Mass/volume ] in Serum or Plasma [facility] Glucose [Mass/volume ] in Serum or Plasma [facility] Glucose [Mass/volume ] in Serum or Plasma [facility] Glucose [Mass/volume ] in Serum or Plasma [facility] Hematocrit [Volume F raction] of Blood [facility] Hematocrit [Volume F raction] of Blood [facility] Hematocrit [Volume F raction] of Blood [facility] Hematocrit [Volume F raction] of Blood [facility] Hematocrit [Volume F raction] of Blood [facility] Hematocrit [Volume F raction] of Blood [facility] Hematocrit [Volume F raction] of Blood [facility] Hematocrit [Volume F raction] of Blood [facility] Hemoglobin [Mass/vol ume] in Blood [facility] Hemoglobin [Mass/vol ume] in Blood [facility] Hemoglobin [Mass/vol ume] in Blood [facility] Hemoglobin [Mass/vol ume] in Blood [facility] Hemoglobin [Mass/vol ume] in Blood [facility] Hemoglobin [Mass/vol ume] in Blood [facility] Hemoglobin [Mass/vol ume] in Blood [facility] Hemoglobin [Mass/vol ume] in Blood [facility] Hemoglobin A1c/Hemoglobin.total in Blood [facility] Hemoglobin A1c/Hemoglobin.total in Blood [facility] Leukocytes [#/volume] in Blood [facility] Leukocytes [#/volume] in Blood [facility] Leukocytes [#/volume] in Blood [facility] Leukocytes [#/volume] in Blood [facility] Leukocytes [#/volume] in Blood [facility] Leukocytes [#/volume] in Blood [facility] Leukocytes [#/volume] in Blood [facility] Leukocytes [#/volume] in Blood [facility] Low density lipoprot ein cholesterol measurement [facility] Magnesium [Mass/volu me] in Serum or Plasma [facility] Mean corpuscular hem oglobin concentration determination [facility] Mean corpuscular hem oglobin concentration determination [facility] Mean corpuscular hem oglobin concentration determination [facility] Mean corpuscular hem oglobin concentration determination [facility] Mean corpuscular hem oglobin concentration determination [facility] Mean corpuscular hem oglobin concentration determination [facility] Mean corpuscular hem oglobin concentration determination [facility] Mean corpuscular hem oglobin concentration determination [facility] Mean corpuscular hem oglobin determination [facility] Mean corpuscular hem oglobin determination [facility] Mean corpuscular hem oglobin determination [facility] Mean corpuscular hem oglobin determination [facility] Mean corpuscular hem oglobin determination [facility] Mean corpuscular hem oglobin determination [facility] Mean corpuscular hem oglobin determination [facility] Mean corpuscular hem oglobin determination [facility] Measurement of 3,4-methylenedioxymethamphetam ine in urine [facility] Measurement of renal function [facility] Measurement of renal function [facility] Measurement of renal function [facility] Measurement of renal function [facility] Measurement of renal function [facility] Measurement of renal function [facility] Measurement of renal function [facility] Measurement of renal function [facility] Methadone measurement, urine [facility] Methadone measurement, urine [facility] Neutrophil count [facility] Neutrophil count [facility] Neutrophil count [facility] Neutrophil count [facility] Neutrophil count [facility] Neutrophil count [facility] Neutrophil count [facility] Neutrophil count [facility] Neutrophil percent differential count [facility] Neutrophil percent differential count [facility] Neutrophil percent differential count [facility] Neutrophil percent differential count [facility] Neutrophil percent differential count [facility] Neutrophil percent differential count [facility] Neutrophil percent differential count [facility] Neutrophil percent differential count [facility] Partial thromboplast in time, activated [facility] Work Phone: Patient Education [facility] [employer] Work Phone: Patient referral [facility] Work Phone: pH of Urine [facility] Phencyclidine [Prese nce] in Urine [facility] Phencyclidine [Prese nce] in Urine [facility] Platelets [#/volume] in Blood [facility] Platelets [#/volume] in Blood [facility] Platelets [#/volume] in Blood [facility] Platelets [#/volume] in Blood [facility] Platelets [#/volume] in Blood [facility] Platelets [#/volume] in Blood [facility] Platelets [#/volume] in Blood [facility] Platelets [#/volume] in Blood [facility] Potassium [Moles/vol ume] in Serum or Plasma [facility] Potassium measurement [facility] Potassium measurement [facility] Potassium measurement [facility] Potassium measurement [facility] Potassium measurement [facility] Potassium measurement [facility] Potassium measurement [facility] Red blood cell count [facility] Red blood cell count [facility] Red blood cell count [facility] Red blood cell count [facility] Red blood cell count [facility] Red blood cell count [facility] Red blood cell count [facility] Red blood cell count [facility] Red cell distributio n width determination [facility] Red cell distributio n width determination [facility] Red cell distributio n width determination [facility] Red cell distributio n width determination [facility] Red cell distributio n width determination [facility] Red cell distributio n width determination [facility] Red cell distributio n width determination [facility] Red cell distributio n width determination [facility] Serum chloride measurement [facility] Serum chloride measurement [facility] Serum chloride measurement [facility] Serum chloride measurement [facility] Serum chloride measurement [facility] Serum chloride measurement [facility] Serum chloride measurement [facility] Sodium [Moles/volume ] in Serum or Plasma [facility] Sodium measurement [facility] Sodium measurement [facility] Sodium measurement [facility] Sodium measurement [facility] Sodium measurement [facility] Sodium measurement [facility] Sodium measurement [facility] Total cholesterol:HD L ratio measurement [facility] Total protein measurement [facility] Triglycerides measurement [facility] Triglycerides measurement [facility] Urea nitrogen [Mass/ volume] in Serum or Plasma [facility] Urea nitrogen [Mass/ volume] in Serum or Plasma [facility] Urea nitrogen [Mass/ volume] in Serum or Plasma [facility] Urea nitrogen [Mass/ volume] in Serum or Plasma [facility] Urea nitrogen [Mass/ volume] in Serum or Plasma [facility] Urea nitrogen [Mass/ volume] in Serum or Plasma [facility] Urea nitrogen [Mass/ volume] in Serum or Plasma [facility] Urea nitrogen [Mass/ volume] in Serum or Plasma [facility] Urine barbiturate measurement [facility] Urine cannabinoid measurement [facility] Urine cannabinoid measurement [facility] Urine opiate measurement [facility] Urine opiate measurement [facility] Vitamin D, 25-hydrox y measurement [facility] VLDL cholesterol measurement [facility] VLDL cholesterol measurement [facility] Payers Date Payer Category Payer Self-pay [id number] 2019 Unknown [id number] 2019 Unknown 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 [id number] Unknown [id number] 62 Unknown [id number] 62 Unknown [id number] 2.840.1.903083.3.579.2.4 62 Unknown [id number] 2.16.840.1.613687.3.579.2.4 62 Unknown [id number] 2.16.840.1.893968.3.579.2.4 62 Unknown [id number] 2.16.840.1.426363.3.579.2.4 62 Unknown [id number] 2.16.840.1.095848.3.579.2.4 62 Unknown [id number] 2.16.840.1.787078.3.579.2.4 62 Unknown [id number] 2.16.840.1.738649.3.579.2.4 62 Unknown [id number] 2.16.840.1.548326.3.579.2.4 62 Unknown [id number] 2.16.840.1.676293.3.579.2.4 62 Unknown [id number] 2.16.840.1.047312.3.579.2.4 62 Unknown [id number] 2.16.840.1.256513.3.579.2.4 62 Unknown [id number] 2.16.840.1.335929.3.579.2.4 62 Unknown [id number] 2.16.840.1.681864.3.579.2.4 62 Unknown [id number] 2.16.840.1.518439.3.579.2.4 62 Unknown [id number] 2.16.840.1.992663.3.579.2.4 62 Unknown [id number] 2.16.840.1.115987.3.579.2.4 62 Unknown [id number] 2.16.840.1.533777.3.579.2.4 62 Unknown [id number] 2.16.840.1.830131.3.579.2.4 62 Unknown [id number] 2.16.840.1.957994.3.579.2.4 62 Social History Date Type Detail Facility Start: 04-27-2022 End: 01-31-2024 Tobacco smoking status NHIS Unknown if ever smoked [facility] Start: 12-31-[address] [facility] Start: 12-31-[address] [facility] Start: 01-21-2021 Spouse/ Signif icant Other [facility] Start: 01-21-[address] [facility] Start: 1970 Sex Assigned At Male [facility] Start: 03-17-2024 End: 07-06-2025 Tobacco smoking status NHIS Smokes tobacco daily [facility] Start: 03-17-2024 Tobacco use and exposure Smokeless tobacco non-user [facility] Start: 03-17-2024 Alcohol intake Not Asked [facility] Start: 10-27-2020 End: 03-17-2024 History of Social function [facility] Start: 10-27-2020 End: 03-17-2024 Tobacco use panel [facility] National Score (1-100), lower number is lower risk Not on file [facility] Start: 1970 Sex Assigned At Not on file [facility] Start: 02-11-2025 End: 02-11-2025 Sex Male (finding) [facility] Medical Equipment Procedure Code Equipment Code Equipment Origin al Text Equipment Identifier Dates ([id number]) Drug-eluting coronary artery stent, bioabsorbable-polyme r-coated ()[id number] FDA Start: 11-18-2021 Pen Needle, Diab etic (Bd Ultra-Fine Tomasa Pen Needle) 32 gauge x 5/32 needle Start: 05-27-2021 Drug-eluting coronary artery stent, tng-pjeecrvztqvbd-tv ly[place]-coated ()[id number] FDA Start: 12-25-2023 Drug-eluting coronary artery stent, oic-afjqqblibrwky-hd [place]-coated ()[id number] FDA Start: 12-25-2023 Drug-eluting coronary artery stent, wim-axogzeiyefnxb-zs ly[place]-coated ()[id number] FDA Start: 07-06-2025 Goals Date Patient Goal Desired Activity /State Functional Status Date Assessment Result Facility 07-07-2025 Functional status Ambulates;Up ad ge [facility] Work Phone: 02-11-2025 Functional status Chair [facility] Work Phone: 12-26-2023 Functional status Dangle Feet [facility] Work Phone: 06-26-2022 Functional status Chair [facility] Work Phone: 04-27-2022 Functional status Ambulates [facility] Work Phone: Mental Status Date Assessment Result Facility 07-07-2025 Cognitive function Voice/Name [facility] Work Phone: 07-05-2025 Cognitive function Voice/Name [facility] Work Phone: 02-11-2025 Cognitive function Voice/Name [facility] Work Phone: 02-10-2025 Cognitive function Appropriate;Cooperativ e [facility] Work Phone: 12-26-2023 Cognitive function Voice/Name [facility] Work Phone: 12-24-2023 Cognitive function Voice/Name [facility] Work Phone: 11-21-2023 Cognitive function Voice/Name [facility] Work Phone: 06-26-2022 Cognitive function Voice[facility]Name [facility] Work Phone: 06-26-2022 Cognitive function Voice[facility]Name [facility] Work Phone: 04-27-2022 Cognitive function Voice/Name [facility] Work Phone: 04-27-2022 Cognitive function Voice[facility]Name [facility] Work Phone: Clinical Notes 11-21-2023 to 07-07-2025 Note Date & Type Note Facility 07-07-2025 Discharge summary [facility] 07-07-2025 Note [facility] 07-06-2025 Consult note Note Date/Time July 06, 2025 5:42pm [facility] Medical Records Department [address] [place] [address] Consultation - Cardiology 07/06/25 1739 MR#: [id number] Acct: [id number] Name: LATONYA ELDER Rep #:[id number] : 1970 54 From: Eric Flores MD PCP: Dr. Beka Bowie MD Status:A DM SINDY Location: [place] [address] Assessment & Plan Assessment/Plan (1) Chest pain: QUALIFIERS: Chest pain type: unspecified Qualified Code(s): R07.9- Chest pain, unspecified PLAN: He does have chest discomfort and presents with the same. He has known coronary artery disease. My recommendation was that he undergo a left heart catheterization which she did and depending on the results further recommendations will be made. (2) Hypertensive emergency: PLAN: This appears to have improved post PCI the plan to be to continue him on his home medications. HPI Consult Data Date of Consult: 07/06/25 HPI Narrative HPI Narrative: LATONYA ELDER, is a 54 M who presents to the emergency room with chest discomfort. He ruled out for myocardial infarction and underwent a stress test which demonstrated significant anterior ischemia and cardiology was called for follow-up and evaluation. He has a history of non-ST elevated myocardial infarction inJanuary 2016 with drug-eluting stent to second obtuse marginal branch. He also has history of hypertension, hyperlipidemia, and tobacco abuse with 0.5 pack day. He had presented to the hospital in November of 2020 with a non-ST elevation myocardial infarction and underwent a cardiac catheterization which demonstrated previously placed stent in the LAD which was patent, the left circumflex artery with mild in-stent stenosis, and new disease involving the proximal mid and distal right coronary artery for which he underwent angioplastyand stenting. He was diagnosed with diabetes in April 2021 during hospital visitfor DKA. In October of 2021 he presented to the emergency room with chest discomfort, he underwent a cardiac catheterization which resulted in a successful WAN to the mid LAD. He presented to the emergency room again on 12/20/21 with chest discomfort, he was evaluated- his troponins did not increase and he was sent home to follow up with cardiology. In April 2022 he presented to the emergency room with chest discomfort. He did undergo a diagnostic heart catheterization. Heart cath demonstrated patency of the mid LAD, OM1 and RCA stent. Patient had a proximal LAD lesion/proximal to the stent which is intermediate region around 50-60% with IFR repeated twice within normal limits. Medical management was recommended. He then again presented back to the emergency room on June 26, 2022 with chest discomfort and a non-STEMI. His blood pressure was noted to be elevated. Medications were adjusted. He was last in the office in 2021. He did present to [facility] on 12/24/2023 for a non-STEMI. He did undergo a diagnostic heart catheterization in which she had stenting to his proximal LAD and proximal OM. He was started on Brilinta however he became significantly short of breath he was then transferredover to Plavix. Echocardiogram demonstrated an ejection fraction of 50% with moderate concentric LVH. Blood pressures were initially elevated better controlled at discharge. He presents again this time and his blood pressure is elevated once again. He complains of this chest pressure. [facility] Medical History CVA (cerebral vascular accident) Obesity (BMI 30-39.9) History of DVT (deep vein thrombosis) Respiratory insufficiency Elevated troponin Acute bronchitis COPD exacerbation Congestive heart failure Vitamin D deficiency Acute sinusitis, unspecified Left shoulder pain Insulin dependent diabetes mellitus Coronary artery disease Essential hypertension Cluster headache Migraine Headache Diabetes Obesity Community acquired pneumonia Smoker Asthma Myocardial infarct Ischemic cardiomyopathy Obesity (BMI 30.0-34.9) Chronic obstructive pulmonary disease (COPD) Nicotine dependence COPD (chronic obstructive pulmonary disease) Hyperlipidemia History of non-ST elevation myocardial infarction (NSTEMI) (11/22/20) Atherosclerosis of [place] coronary artery of [place] heart without angina pectoris Non-ST elevation [place] (NSTEMI) Home Medications ?Medication ?Instructions ?Recorded ?Last Taken ?Type aspirin 81 mg chewable tablet 81 mg PO DAILY heart hea lth 04/27/22 02/10/25 History loratadine 10 mg tablet 10 mg PO DAILY PRN allergies 06/26/22 Unknown History insulin degludec 200 unit/mL (3 50 unit (0.25 mL) subc ut QHS blood 12/28/23 02/09/25 Rx mL) subcutaneous pen (Tresiba sugar 3 months #22.5 mL FlexTouch U-200 insulin) carvedilol 25 mg tablet 25 mg PO [...] History subcutaneous pen (Humalog KwikPen (U-100) Insulin) albuterol sulfate 90 mcg/actuation 2 puff inhalation 4 X/DAY PRN 02/11/25 Unknown Rx aerosol inhaler Shortness Of Breath #8.5 gra ms atorvastatin 80 mg tablet 80 mg PO QHS cholesterol #90 tabs 02/11/25 Unknown Rx amlodipine 10 mg tablet 10 mg PO DAILY blood pressur e #90 02/12/25 Unknown Rx tabs clopidogrel 75 mg tablet (Plavix) 75 mg PO DAILY anti platelet #90 02/12/25 Unknown Rx tabs isosorbide mononitrate 60 mg 60 mg PO BID heart #180 T ABLETS 02/12/25 Unknown Rx tablet,extended release 24 hr ranolazine 1,000 mg 1,000 mg PO BID heart #60 ta bs 02/12/25 Unknown Rx tablet,extended release,12 hr nitroglycerin 0.4 mg sublingual 0.4 mg sublingual Q5-1 5M chest 06/01/25 Unknown Rx tablet pain #25 tabs lisinopril 20 mg tablet 20 mg PO BID blood pressure 07/05/25 Unknown History Allergy/AdvReac Type Severity Reaction Status Date / Time amoxicillin trihydrate (From Allergy Rash Verified 07/05/25 20:31 Augmentin) potassium clavulanate (From Allergy Rash Verified 07/05/25 20:31 Augmentin) ticagrelor (From Brilinta) Allergy Shortness Verified 07/05/25 20:31 of breath codeine AdvReac Nausea Verified 07/05/25 20:31 Family History Sister Myocardial infarction, Onset Age: [...] you participate in: none ROS Constitutional Constitutional: Denies fever(s) or weight loss Eyes Eyes: Reports systems reviewed and no addt'l complaints, except as documented ENT HEENT: Reports systems reviewed and no addt'l complaints, except as documented Cardiovascular Cardiovascular: Reports chest pain at rest, dyspnea at rest and dyspnea on exertion; Denies chest pain with activity, edema, palpitations or paroxysmal nocturnal dyspnea Respiratory/Chest Respiratory/Chest: Denies dyspnea on exertion, productive cough, shortness of breath at rest or shortness of breath with exertion Gastrointestinal Gastrointestinal: Denies change in bowel habits, nausea, vomiting or weight changes Genitourinary Genitourinary: Denies difficulty urinating Musculoskeletal Musculoskeletal: Denies joint stiffness or muscle weakness Integumentary Integumentary: Denies lesions Neurologic Neurologic: Denies dizziness or syncope Psychiatric Psychiatric: Denies anxiety Endocrine Endocrinology: Denies excessive sweating or fatigue Hematologic/Lymphatic Hematologic/Lymphatic: Denies anemia Allergic/Immunologic Allergic/Immunologic: Denies seasonal rhinorrhea Objective Data Vital Signs: Vital Signs Temp Pulse Resp BP Pulse Ox O2 Del Method 98.6 F 83 18 107/72 95 Room Air 07/06/25 16:53 07/06/25 16:53 07/06/25 16:53 07/06/25 16:53 07/06/25 16:53 07/06/25 16:53 Oxygen Delivery Method Room Air Weight: 225 lb 8.526 oz Body Mass Index (BMI) 34.2 Intake & Output: Intake and Output for Last 24 Hours 07/04/25 07/05/25 07/06/25 23:59 23:59 23:59 Intake Total 655.17 / 655.17 Balance 655.17 / 655.17 Lab / Micro Data 07/06/25 04:40 07/06/25 04:40 Labs: Laboratory Results - last 24 hr 07/05/25 20:35: WBC 14.2 H, RBC 5.40, Hgb 16.1, Hct 45.7, MCV 84.6, MCH 29.8, MCHC 35.2, RDW Std Deviation 40.7, RDW Coeff of Narcisa 13.2, Plt Count 267, MPV 10.5, Immature Gran % (Auto) 0.400, Neut % (Auto) 55.7, Lymph % (Auto) 31.6, Randall % (Auto) 10.1 H, Eos % (Auto) 1.6, Baso % (Auto) 0.6, Absolute Neuts (auto) 7.9 H, Absolute Lymphs (auto) 4.50, Nucleated RBC % 0, Platelet Estimate ADEQUATE, RBC Morphology NORM C+C, D-Dimer Quant (PE/DVT) 0.60 H*, Sodium 139, Potassium 3.5, Chloride 101, Carbon Dioxide 22.7, Anion Gap 16 H, BUN 14, Creatinine 0.93, Estim Creat Clear Calc 108.20, Est GFR (MDRD) Non-Af 99, BUN/Creatinine Ratio 15.6, Glucose 315 H, Hemoglobin A1c 11.5 H, Calcium 10.0, Troponin T High Sens 18 D 07/05/25 22:32: Magnesium 1.9, Troponin T Hi Sens 2 Hr 27 H, Ethyl Alcohol Cancelled 07/06/25 00:27: Troponin T Hi Sens 4Hr 60 H*, NT pro BNP II Cancelled 07/06/25 00:27: NT pro BNP II 201, b-Hydroxybutyric mmol/L 0.1, TSH Cancelled 07/06/25 00:27: TSH 3.580, Ethyl Alcohol < 10.1 07/06/25 01:31: Urine Color Yellow, Urine Clarity Clear, Urine pH 7.0, Ur Specific [employer] 1.010, Urine Protein 30 H, Urine Glucose (UA) 1000 H, Urine Ketones Negative, Urine Occult Blood 10 H, Urine Nitrite Negative, Urine Bilirubin Negative, Urine Urobilinogen Normal, Ur Leukocyte Esterase Negative, Urine RBC 0-5 SEEN, Urine WBC 0 SEEN, Ur Squamous Epith Cells 0 SEEN, Urine Bacteria RARE, Urine Mucus 0 SEEN, Urine Opiates Screen PRESUMPTIVE POSITIVE, U Buprenorphine Qual NEGATIVE, Ur Oxycodone Screen NEGATIVE, Urine Methadone Screen NEGATIVE, Urine Fentanyl Screen NEGATIVE, Ur Barbiturates Screen NEGATIVE, Ur Phencyclidine Scrn NEGATIVE, Ur Amphetamines Screen NEGATIVE, U Benzodiazepines Scrn NEGATIVE, Urine Cocaine Screen NEGATIVE, U Cannabinoids Screen PRESUMPTIVE POSITIVE 07/06/25 01:39: POC Glucose 263 H 07/06/25 04:40: WBC 13.5 H, RBC 5.46, Hgb 16.0, Hct 46.7, MCV 85.5, MCH 29.3, MCHC 34.3, RDW Std Deviation 40.7, RDW Coeff of Narcisa 13.2, Plt Count 248, MPV 10.7, Immature Gran % (Auto) 0.400, Neut % (Auto) 61.9, Lymph % (Auto) 24.7, Randall % (Auto) 11.3 H, Eos % (Auto) 1.3, Baso % (Auto) 0.4, Absolute Neuts (auto) 8.3 H, Absolute Lymphs (auto) 3.34, Nucleated RBC % 0, Differential Comment SCANNED, Platelet Estimate ADEQUATE, Polychromasia 1+, Anisocytosis 1+, Ovalocytes 1+, Sodium 139, Potassium 3.2 L, Chloride 99, Carbon Dioxide 26.0, Anion Gap 13, BUN 11, Creatinine 0.90, Estim Creat Clear Calc 110.04, Est GFR (MDRD) Non-Af 102, BUN/Creatinine Ratio 12.3, Glucose 297 H, Calcium 9.5, Phosphorus 2.9, Total Bilirubin 0.46, AST 26, ALT 16, Alkaline Phosphatase 139 H, Total Protein 7.5, Albumin 4.1, Globulin 3.3, Albumin/Globulin Ratio 1.2, Triglycerides 92, Cholesterol 186, LDL Cholesterol, Calc 131, VLDL Cholesterol 18, HDL Cholesterol 37 L, Cholesterol/HDL Ratio 5.03 07/06/25 06:34: POC Glucose 299 H 07/06/25 11:25: POC Glucose 264 H 07/06/25 11:54: Activated Clotting Time 181 H 07/06/25 12:09: Activated Clotting Time 285 H Cardiology Labs/Tests 07/05/25 20:35: WBC 14.2 H, RBC 5.40, Hgb 16.1, Hct 45.7, MCV 84.6, MCH 29.8, MCHC 35.2, Plt Count 267, MPV 10.5, Immature Gran % (Auto) 0.400, Neut % (Auto) 55.7, Lymph % (Auto) 31.6, Randall % (Auto) 10.1 H, Eos % (Auto) 1.6, Baso % (Auto)0.6, Absolute Neuts (auto) 7.9 H, Nucleated RBC % 0, D-Dimer Quant (PE/DVT) 0.60H*, Sodium 139, Potassium 3.5, Chloride 101, Carbon Dioxide 22.7, Anion Gap 16 H, BUN 14, Creatinine 0.93, Est GFR (MDRD) Non-Af 99, BUN/Creatinine Ratio 15.6, Glucose 315 H, Hemoglobin A1c 11.5 H, Calcium 10.0 07/05/25 22:32: Magnesium 1.9 07/06/25 01:31: Urine Color Yellow, Urine Clarity Clear, Urine pH 7.0, Ur Specific [employer] 1.010, Urine Protein 30 H, Urine Glucose (UA) 1000 H, Urine Ketones Negative, Urine Occult Blood 10 H, Urine Nitrite Negative, Urine Bilirubin Negative, Urine Urobilinogen Normal, Ur Leukocyte Esterase Negative, Urine RBC 0-5 SEEN, Urine WBC 0 SEEN 07/06/25 04:40: WBC 13.5 H, RBC 5.46, Hgb 16.0, Hct 46.7, MCV 85.5, MCH 29.3, MCHC 34.3, Plt Count 248, MPV 10.7, Immature Gran % (Auto) 0.400, Neut % (Auto) 61.9, Lymph % (Auto) 24.7, Randall % (Auto) 11.3 H, Eos % (Auto) 1.3, Baso % (Auto)0.4, Absolute Neuts (auto) 8.3 H, Nucleated RBC % 0, Sodium 139, Potassium 3.2 L, Chloride 99, Carbon Dioxide 26.0, Anion Gap 13, BUN 11, Creatinine 0.90, Est GFR (MDRD) Non-Af 102, BUN/Creatinine Ratio 12.3, Glucose 297 H, Calcium 9.5, Phosphorus 2.9, Total Bilirubin 0.46, Triglycerides 92, Cholesterol 186, VLDL Cholesterol 18, HDL Cholesterol 37 L, Cholesterol/HDL Ratio 5.03 Rhythm: EKG: ECHO: Stress Test: Cardiac Cath: PCI: CT Surgery: Holter monitor: EPS: PPM: CXR: Chest CT Scan: Radiography Diagnostic Testing: Radiology Impression Chest X-Ray 07/05/25 20:58 IMPRESSION: Stable mild cardiomegaly with slightly decreased pulmonary vascular congestion. Reading [facility] Head/Neck CTA 07/06/25 00:42 IMPRESSION: The ascending aorta is dilated to 4.0 cm in AP diameter. There is a 1.1 x 1.3 cm enlarged pretracheal lymph node.There is subcutaneous edema throughout the anterior and right neck with no definite organized or drainable collection, new. There is asymmetric enlargement of the right submandibular gland with a 0.2 cm calcified focus, image 280/628, which can indicate stone, unchanged in position compared to the prior. There is mucosal thickening in the floor of the right and left maxillary sinus. 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 Reading Location: [facility] Venous Doppler Study 07/06/25 05:25 Interpretation Summary Deep veins of the lower extremities are bilaterally patent and compressible segmentally. There is no evidence of deep vein thrombosis on either side. Valvular competence appears intact within the proximal deep venous systems bilaterally. The great saphenous veins appear bilaterally patent and compressible segmentally. Ordering Physician: Mitchell Deras Referring Physician: Beka Bowie Performed By: Lety Canchola, [place], RVT PHANIA Risk Score for UA/STEMI Assesmment (YES = 1) Risk Stratification Applicable: Yes Age > or = 65: No > or = 3 CAD risk factors (HTN, Hypercholesterolemia, Diabetes, family hx, current smoker): Yes Known CAD (Stenosis > or = 50%): Yes ASA used in past 7 days: Yes Severe angina (> or = 2 episodes in 24 hrs): No EKG ST change > or = 0.5mm: No Positive cardiac markers: No Score ESTEPHANIA Risk Score of mortality/ recurrent ischemic event over the next 14 days: 3 = 13.2% Intermediate Risk 07/06/25 1742 <Electronically signed by Eric Flores MD> Cosigner Signature (if applicable): CC: Dr. Beka Bowie MD~ Signed [facility] Work Phone: [phone] Progress note Author Sheyla [facility] Note Date/Time July 06, 2025 4: 34pm [facility] Medical Records Department [address] [place] [address] Progress Note 07/06/2555 MR#: [id number] Acct: [id number] Name: LATONYA ELDER Rep #:[id number] : 1970 54 From: Sheyla Ortega MD PCP: Dr. Beka Bowie MD Status:A DM [facility] Location: [place] [address] Subjective Subjective Patient seen and examined with his nurse by his bedside. He complained of his his blood sugars running high this morning. He is on a low dose sliding scale, which he says is not enough coverage. He has not had any more chest pain since admission. Review of systems is otherwise negative. Objective Data Objective Data Vital Signs: Vital Signs Temp Pulse Resp BP Pulse Ox O2 Del Method 98.1 F 93 16 161/101 H 98 Room Air 07/06/25 06:26 07/06/25 06:26 07/06/25 06:26 07/06/25 06:26 07/06/25 06:26 07/06/25 06:26 Oxygen Delivery Method Room Air Weight: 225 lb 8.526 oz Body Mass Index (BMI) 34.2 Intake & Output: Intake and Output for Last 24 Hours 07/04/25 07/05/25 07/06/25 23:59 23:59 23:59 Intake Total 104 / 104 Balance 104 / 104 Lab / Micro Data 07/06/25 04:40 07/06/25 04:40 Labs: Laboratory Results - last 24 hr 07/05/25 20:35: WBC 14.2 H, RBC 5.40, Hgb 16.1, Hct 45.7, MCV 84.6, MCH 29.8, MCHC 35.2, RDW Std Deviation 40.7, RDW Coeff of Narcisa 13.2, Plt Count 267, MPV 10.5, Immature Gran % (Auto) 0.400, Neut % (Auto) 55.7, Lymph % (Auto) 31.6, Randall % (Auto) 10.1 H, Eos % (Auto) 1.6, Baso % (Auto) 0.6, Absolute Neuts (auto) 7.9 H, Absolute Lymphs (auto) 4.50, Nucleated RBC % 0, Platelet Estimate ADEQUATE, RBC Morphology NORM C+C, D-Dimer Quant (PE/DVT) 0.60 H*, Sodium 139, Potassium 3.5, Chloride 101, Carbon Dioxide 22.7, Anion Gap 16 H, BUN 14, Creatinine 0.93, Estim Creat Clear Calc 108.20, Est GFR (MDRD) Non-Af 99, BUN/Creatinine Ratio 15.6, Glucose 315 H, Hemoglobin A1c 11.5 H, Calcium 10.0, Troponin T High Sens 18 D 07/05/25 22:32: Magnesium 1.9, Troponin T Hi Sens 2 Hr 27 H, Ethyl Alcohol Cancelled 07/06/25 00:27: Troponin T Hi Sens 4Hr 60 H*, NT pro BNP II Cancelled 07/06/25 00:27: NT pro BNP II 201, b-Hydroxybutyric mmol/L 0.1, TSH Cancelled 07/06/25 00:27: TSH 3.580, Ethyl Alcohol < 10.1 07/06/25 01:31: Urine Color Yellow, Urine Clarity Clear, Urine pH 7.0, Ur Specific [employer] 1.010, Urine Protein 30 H, Urine Glucose (UA) 1000 H, Urine Ketones Negative, Urine Occult Blood 10 H, Urine Nitrite Negative, Urine Bilirubin Negative, Urine Urobilinogen Normal, Ur Leukocyte Esterase Negative, Urine RBC 0-5 SEEN, Urine WBC 0 SEEN, Ur Squamous Epith Cells 0 SEEN, Urine Bacteria RARE, Urine Mucus 0 SEEN, Urine Opiates Screen PRESUMPTIVE POSITIVE, U Buprenorphine Qual NEGATIVE, Ur Oxycodone Screen NEGATIVE, Urine Methadone Screen NEGATIVE, Urine Fentanyl Screen NEGATIVE, Ur Barbiturates Screen NEGATIVE, Ur Phencyclidine Scrn NEGATIVE, Ur Amphetamines Screen NEGATIVE, U Benzodiazepines Scrn NEGATIVE, Urine Cocaine Screen NEGATIVE, U Cannabinoids Screen PRESUMPTIVE POSITIVE 07/06/25 01:39: POC Glucose 263 H 07/06/25 04:40: WBC 13.5 H, RBC 5.46, Hgb 16.0, Hct 46.7, MCV 85.5, MCH 29.3, MCHC 34.3, RDW Std Deviation 40.7, RDW Coeff of Narcisa 13.2, Plt Count 248, MPV 10.7, Immature Gran % (Auto) 0.400, Neut % (Auto) 61.9, Lymph % (Auto) 24.7, Randall % (Auto) 11.3 H, Eos % (Auto) 1.3, Baso % (Auto) 0.4, Absolute Neuts (auto) 8.3 H, Absolute Lymphs (auto) 3.34, Nucleated RBC % 0, Differential Comment SCANNED, Platelet Estimate ADEQUATE, Polychromasia 1+, Anisocytosis 1+, Ovalocytes 1+, Sodium 139, Potassium 3.2 L, Chloride 99, Carbon Dioxide 26.0, Anion Gap 13, BUN 11, Creatinine 0.90, Estim Creat Clear Calc 110.04, Est GFR (MDRD) Non-Af 102, BUN/Creatinine Ratio 12.3, Glucose 297 H, Calcium 9.5, Phosphorus 2.9, Total Bilirubin 0.46, AST 26, ALT 16, Alkaline Phosphatase 139 H, Total Protein 7.5, Albumin 4.1, Globulin 3.3, Albumin/Globulin Ratio 1.2, Triglycerides 92, Cholesterol 186, LDL Cholesterol, Calc 131, VLDL Cholesterol 18, HDL Cholesterol 37 L, Cholesterol/HDL Ratio 5.03 07/06/25 06:34: POC Glucose 299 H Radiography Diagnostic Testing: Radiology Impression Chest X-Ray 07/05/25 20:58 IMPRESSION: Stable mild cardiomegaly with slightly decreased pulmonary vascular congestion. Reading Location: [facility] Head/Neck CTA 07/06/25 00:42 IMPRESSION: The ascending aorta is dilated to 4.0 cm in AP diameter. There is a 1.1 x 1.3 cm enlarged pretracheal lymph node.There is subcutaneous edema throughout the anterior and right neck with no definite organized or drainable collection, new. There is asymmetric enlargement of the right submandibular gland with a 0.2 cm calcified focus, image 280/628, which can indicate stone, unchanged in position compared to the prior. There is mucosal thickening in the floor of the right and left maxillary sinus. 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 Reading Location: [facility] Physical Exam Const alert, oriented x3, no apparent distress and well nourished General Appearance: cooperative HEENT normocephalic, head/scalp atraumatic, moist oral mucous membranes and oropharynxnormal Eyes EOMs intact bilaterally Neck no lymphadenopathy and supple Lymph Lymphatic: no lymphedema noted Resp normal respiratory effort, normal air movement and clear to auscultation bilaterally Cardio regular rate, regular rhythm, S1 normal heart sound, S2 normal heart sound and no murmurs GI normal to inspection, nondistended, normoactive bowel sounds, soft to palpation,non-tender and non-distended Extremity normal capillary refill, no clubbing, cyanosis or edema and no calf tenderness General Extremity: no tenderness to palpation of joints or extremities Skin General Skin Exam: no breakdown Neuro CN's II-XII intact bilaterally and no focal motor deficits Motor Exam: general weakness Psych thought process normal and cooperative Appearance: appropriate Assessment & Plan Assessment/Plan (1) Hypertensive emergency: (2) Chest pain: QUALIFIERS: Chest pain type: unspecified Qualified Code(s): R07.9- Chest pain, unspecified PLAN: Plan #Hypertensive emergency * resolved. BP was 237/126 on admission, with associated chest pain and elevated troponin, indicative of hypertensive emergency. * has known ischemic cardiomyopathy with known EF of 25% * on IV hydralazine prn. Continue current BP meds- amlodipine 10mg daily, carvedilol 25mg daily, lisinopril 20mg bid * #CHest pain to rule out ACS * has known ischemic cardiomyopathy with EF of 25% and stage III diastolic dysfunction as well as severe global hypokinesis * has had chronic episodic chest pain * tropnins did trend up gently * on SL nitroglycerin, aspirin, plavix and andre * for stress test this morning- stress test was abnormal and showed evidence of prior infarct and new perfusion defect not seen on prior test suggestive of ischemia in the LAD territory. * He therefore had cardiac cath after cardiology was consulted and cardiac cath showed 80% de enrrique stenosis of the mid LAD s/p PCI with insertion of stent. * also on ranexa and imdur. * #Type 2 diabetes mellitus with hyperglycemia * blood sugars running high this morning. ISS. Accuchecks ACHS * A1C pending. Home dose humalog resumed and patient placed on medium to high dose sliding scale * #Parotitis: Wbc was elevated on admission. On IV clindamycin. Wbc today is down to 13.5. #Hyperlipidemia: on statin #Histoyr of bilateral DVTs: was previously on eliquis but this has been discontinued. DVT prophylaxis: on lovenox Charges/Coding Visit Charges Inpatient E&M: 60267 Subs Hosp L2 07/06/25 1634 <Electronically signed by Sheyla Ortega MD> Sheyla Ortega MD Cosigner Signature (if applicable): CC: ~ Signed [facility] Work Phone: [phone] [facility] Medical Records Department [address] [place] [id number] Consultation - Cardiology 07/06/25 1739 MR#: [id number] Acct: [id number] Name: LATONYA ELDER Rep #:[id number] : 1970 54 From: Eric Flores MD PCP: Dr. Beka Bowie MD Status:A DM [facility] Location: [place] [address] Assessment & Plan Assessment/Plan (1) Chest pain: QUALIFIERS: Chest pain type: unspecified Qualified Code(s): R07.9- Chest pain, unspecified PLAN: He does have chest discomfort and presents with the same. He has known coronary artery disease. My recommendation was that he undergo a left heart catheterization which she did and depending onthe results further recommendations will be made. (2) Hypertensive emergency: PLAN: This appears to have improved post PCI the plan to be to continue him on his home medications. HPI Consult Data Date of Consult: 07/06/25 HPI Narrative HPI Narrative: LATONYA ELDER, is a 54 M who presents to the emergency room with chest discomfort. He ruled out for myocardial infarction and underwent a stress test which demonstrated significant anterior ischemia andcardiology was called for follow- up and evaluation. He has a history of non-ST elevated myocardial infarction inJanuary 2016 with drug-eluting stent to second obtuse marginal branch. He also has history of hypertension, hyperlipidemia, and tobacco abuse with 0.5 pack day. He had presented to the hospital in November of 2020 with a non-ST elevation myocardial infarction and underwent a cardiac catheterization which demonstrated previously placed stent in the LAD which was patent, the left circumflex artery with mild in-stent stenosis, and new disease involving the proximal mid and distal right coronary artery for which he underwent angioplastyand stenting. [facility] In October of 2021 he presented to the emergency room with chest discomfort, he underwent a cardiac catheterization which resulted in a successful WAN to the midLAD. He presented to the emergency room again on 12/20/21 with chest discomfort, he was evaluated- his troponins did not increase and he was sent home to follow up with cardiology. In April 2022 he presented to the emergency room with chest discomfort. He did undergo a diagnostic heart catheterization. Heart cath demonstrated patency of the mid LAD, OM1 and RCA stent. Patient had a proximal LAD lesion/proximal to the stent which is intermediate region around 50-60% with IFR repeated twice within normal limits. Medical management was recommended. He then again presented back to the emergency roomon June 26, 2022 with chest discomfort and a non-STEMI. His blood pressure was noted to be elevated. Medications were adjusted. He was last in the office in 2021. He did present to [facility] on 12/24/2023 for a non-STEMI. He did undergo a diagnostic heart catheterization in which she had stenting to his proximal LAD and proximal OM. He was started on Brilinta however he became significantly short of breath he was then transferredover to Plavix. Echocardiogram demonstrated an ejection fraction of 50% with moderate concentric LVH. Blood pressures were initially elevated better controlled at discharge. He presents again this time and his blood pressure is elevated once again. He complains of this chest pressure. [facility] Medical History CVA (cerebral vascular accident) Obesity (BMI 30-39.9) History of DVT (deep vein thrombosis) Respiratory insufficiency Elevated troponin Acute bronchitis COPD exacerbation Congestive heart failure Vitamin D deficiency Acute sinusitis, unspecified Left shoulder pain Insulin dependent diabetes mellitus Coronary artery disease Essential hypertension Cluster headache Migraine Headache Diabetes Obesity Community acquired pneumonia Smoker Asthma Myocardial infarct Ischemic cardiomyopathy Obesity (BMI 30.0-34.9) Chronic obstructive pulmonary disease (COPD) Nicotine dependence COPD (chronic obstructive pulmonary disease) Hyperlipidemia History of non-ST elevation myocardial infarction (NSTEMI) (11/22/20) Atherosclerosis of [place] coronary artery of [place] heart without angina pectoris Non-ST elevation [place] (NSTEMI) Home Medications ?Medication ?Instructions ?Recorded ?Last Taken ?Type aspirin 81 mg chewable tablet 81 mg PO DAILY heart hea lt 04/27/22 02/10/25 History loratadine 10 mg tablet 10 mg PO DAILY PRN allergies 06/26/22 Unknown History insulin degludec 200 unit/mL (3 50 unit (0.25 mL) subc ut QHS blood 12/28/23 02/09/25 Rx mL) subcutaneous pen (Tresiba sugar 3 months #22.5 mL FlexTouch U-200 insulin) [facility]27[facility]24 02/10/25 Rx tabs clonidine HCl [...] History subcutaneous pen (Humalog KwikPen (U-100) Insulin) albuterol sulfate 90 mcg/actuation 2 puff inhalation 4 X/DAY PRN 02/11/25 Unknown Rx aerosol inhaler Shortness Of Breath #8.5 gra ms atorvastatin 80 mg tablet 80 mg PO QHS cholesterol #90 tabs 02/11/25 Unknown Rx amlodipine 10 mg tablet 10 mg PO DAILY blood pressur e #90 02/12/25 Unknown Rx tabs clopidogrel 75 mg tablet (Plavix) 75 mg PO DAILY anti platelet #90 02/12/25 Unknown Rx tabs isosorbide mononitrate 60 mg 60 mg PO BID heart #180 T ABLETS 02/12/25 Unknown Rx tablet,extended release 24 hr ranolazine 1,000 mg 1,000 mg PO BID heart #60 ta bs 02/12/25 Unknown Rx tablet,extended release,12 hr nitroglycerin 0.4 mg sublingual 0.4 mg sublingual Q5-1 5M chest 06/01/25 Unknown Rx tablet pain #25 tabs lisinopril 20 mg tablet 20 mg PO BID blood pressure 07/05/25 Unknown History Allergy/AdvReac Type Severity Reaction Status Date / Time amoxicillin trihydrate (From Allergy Rash Verified 07/05/25 20:31 Augmentin) potassium clavulanate (From Allergy Rash Verified 07/05/25 20:31 Augmentin) ticagrelor (From Brilinta) Allergy Shortness Verified 07/05/25 20:31 of breath codeine AdvReac Nausea Verified 07/05/25 20:31 Family History Sister Myocardial infarction, Onset Age: [...] you participate in: none ROS Constitutional Constitutional: Denies fever(s) or weight loss Eyes Eyes: Reports systems reviewed and no addt'l complaints, except as documented ENT HEENT: Reports systems reviewed and no addt'l complaints, except as documented Cardiovascular Cardiovascular: Reports chest pain at rest, dyspnea at rest and dyspnea on exertion; Denies chest pain with activity, edema, palpitations or paroxysmal nocturnal dyspnea Respiratory/Chest Respiratory/Chest: Denies dyspnea on exertion, productive cough, shortness of breath at rest or shortness of breath with exertion Gastrointestinal Gastrointestinal: Denies change in bowel habits, nausea, vomiting or weight changes Genitourinary Genitourinary: Denies difficulty urinating Musculoskeletal Musculoskeletal: Denies joint stiffness or muscle weakness Integumentary Integumentary: Denies lesions Neurologic Neurologic: Denies dizziness or syncope Psychiatric Psychiatric: Denies anxiety Endocrine Endocrinology: Denies excessive sweating or fatigue Hematologic/Lymphatic Hematologic/Lymphatic: Denies anemia Allergic/Immunologic Allergic/Immunologic: Denies seasonal rhinorrhea Objective Data Vital Signs: Vital Signs Temp Pulse Resp BP Pulse Ox O2 Del Method 98.6 F 83 18 107/72 95 Room Air 07/06/25 16:53 07/06/25 16:53 07/06/25 16:53 07/06/25 16:53 07/06/25 16:53 07/06/25 16:53 Oxygen Delivery Method Room Air Weight: 225 lb 8.526 oz Body Mass Index (BMI) 34.2 Intake & Output: Intake and Output for Last 24 Hours 07/04/25 07/05/25 07/06/25 23:59 23:59 23:59 Intake Total 655.17 / 655.17 Balance 655.17 / 655.17 Lab / Micro Data 07/06/25 04:40 07/06/25 04:40 Labs: Laboratory Results - last 24 hr 07/05/25 20:35: WBC 14.2 H, RBC 5.40, Hgb 16.1, Hct 45.7, MCV 84.6, MCH 29.8, MCHC 35.2, RDW Std Deviation 40.7, RDW Coeff of Narcisa 13.2, Plt Count 267, MPV 10.5, Immature Gran % (Auto) 0.400, Neut % (Auto) 55.7, Lymph % (Auto) 31.6, Randall % (Auto) 10.1 H, Eos % (Auto) 1.6, Baso % (Auto) 0.6, AbsoluteNeuts (auto) 7.9 H, Absolute Lymphs (auto) 4.50, Nucleated RBC % 0, Platelet Estimate ADEQUATE, RBCMorphology NORM C+C, D-Dimer Quant (PE/DVT) 0.60 H*, Sodium 139, Potassium 3.5, Chloride 101, Carbon Dioxide 22.7, Anion Gap 16 H, BUN 14, Creatinine 0.93, Estim Creat Clear Calc 108.20, Est GFR (MDRD) Non-Af 99, BUN/Creatinine Ratio 15.6, Glucose 315 H, Hemoglobin A1c 11.5 H, Calcium 10.0, Troponin T High Sens 18 D 07/05/25 22:32: Magnesium 1.9, Troponin T Hi Sens 2 Hr 27 H, Ethyl Alcohol Cancelled 07/06/25 00:27: Troponin T Hi Sens 4Hr 60 H*, NT pro BNP II Cancelled 07/06/25 00:27: NT pro BNP II 201, b-Hydroxybutyric mmol/L 0.1, TSH Cancelled 07/06/25 00:27: TSH 3.580, Ethyl Alcohol < 10.1 07/06/25 01:31: Urine Color Yellow, Urine Clarity Clear, Urine pH 7.0, Ur Specific [employer] 1.010, Urine Protein 30 H, Urine Glucose (UA) 1000 H, Urine Ketones Negative, Urine Occult Blood 10 H, UrineNitrite Negative, Urine Bilirubin Negative, Urine Urobilinogen Normal, Ur Leukocyte Esterase Negative, Urine RBC 0-5 SEEN, Urine WBC 0 SEEN, Ur Squamous Epith Cells 0 SEEN, Urine Bacteria RARE, UrineMucus 0 SEEN, Urine Opiates Screen PRESUMPTIVE POSITIVE, U Buprenorphine Qual NEGATIVE, Ur Oxycodone Screen NEGATIVE, Urine Methadone Screen NEGATIVE, Urine Fentanyl Screen NEGATIVE, Ur Barbiturates Screen NEGATIVE, Ur Phencyclidine Scrn NEGATIVE, Ur Amphetamines Screen NEGATIVE, U Benzodiazepines Scrn NEGATIVE, Urine Cocaine Screen NEGATIVE, U Cannabinoids Screen PRESUMPTIVE POSITIVE 07/06/25 01:39: POC Glucose 263 H 07/06/25 04:40: WBC 13.5 H, RBC 5.46, Hgb 16.0, Hct 46.7, MCV 85.5, MCH 29.3, MCHC 34.3, RDW Std Deviation 40.7, RDW Coeff of Narcisa 13.2, Plt Count 248, MPV 10.7, Immature Gran % (Auto) 0.400, Neut % (Auto) 61.9, Lymph % (Auto) 24.7, Randall % (Auto) 11.3 H, Eos % (Auto) 1.3, Baso % (Auto) 0.4, AbsoluteNeuts (auto) 8.3 H, Absolute Lymphs (auto) 3.34, Nucleated RBC % 0, Differential Comment SCANNED, Platelet Estimate ADEQUATE, Polychromasia 1+, Anisocytosis 1+, Ovalocytes 1+, Sodium 139, Potassium 3.2 L, Chloride 99, Carbon Dioxide 26.0, Anion Gap 13, BUN 11, Creatinine 0.90, Estim Creat Clear Calc 110.04, Est GFR (MDRD) Non-Af 102, BUN/Creatinine Ratio 12.3, Glucose 297 H, Calcium 9.5, Phosphorus 2.9, Total Bilirubin 0.46, AST 26, ALT 16, Alkaline Phosphatase 139 H, Total Protein 7.5, Albumin4.1, Globulin 3.3, Albumin/Globulin Ratio 1.2, Triglycerides 92, Cholesterol 186, LDL Cholesterol, Calc 131, VLDL Cholesterol 18, HDL Cholesterol 37 L, Cholesterol/HDL Ratio 5.03 07/06/25 06:34: POC Glucose 299 H 07/06/25 11:25: POC Glucose 264 H 07/06/25 11:54: Activated Clotting Time 181 H 07/06/25 12:09: Activated Clotting Time 285 H Cardiology Labs/Tests 07/05/25 20:35: WBC 14.2 H, RBC 5.40, Hgb 16.1, Hct 45.7, MCV 84.6, MCH 29.8, MCHC 35.2, Plt Count 267, MPV 10.5, Immature Gran % (Auto) 0.400, Neut % (Auto) 55.7, Lymph % (Auto) 31.6, Randall % (Auto) 10.1 H, Eos % (Auto) 1.6, Baso % (Auto)0.6, Absolute Neuts (auto) 7.9 H, Nucleated RBC % 0, D-Dimer Quant (PE/DVT) 0.60H*, Sodium 139, Potassium 3.5, Chloride 101, Carbon Dioxide 22.7, Anion Gap 16 H,BUN 14, Creatinine 0.93, Est GFR (MDRD) Non-Af 99, BUN/Creatinine Ratio 15.6, Glucose 315 H, Hemoglobin A1c 11.5 H, Calcium 10.0 07/05/25 22:32: Magnesium 1.9 07/06/25 01:31: Urine Color Yellow, Urine Clarity Clear, Urine pH 7.0, Ur Specific [employer] 1.010, Urine Protein 30 H, Urine Glucose (UA) 1000 H, Urine Ketones Negative, Urine Occult Blood 10 H, UrineNitrite Negative, Urine Bilirubin Negative, Urine Urobilinogen Normal, Ur Leukocyte Esterase Negative, Urine RBC 0-5 SEEN, Urine WBC 0 SEEN 07/06/25 04:40: WBC 13.5 H, RBC 5.46, Hgb 16.0, Hct 46.7, MCV 85.5, MCH 29.3, MCHC 34.3, Plt Count 248, MPV 10.7, Immature Gran % (Auto) 0.400, Neut % (Auto) 61.9, Lymph % (Auto) 24.7, Randall % (Auto) 11.3 H, Eos % (Auto) 1.3, Baso % (Auto)0.4, Absolute Neuts (auto) 8.3 H, Nucleated RBC % 0, Sodium 139, Potassium 3.2 L, Chloride 99, Carbon Dioxide 26.0, Anion Gap 13, BUN 11, Creatinine 0.90, Est GFR (MDRD) Non-Af 102, BUN/Creatinine Ratio 12.3, Glucose 297 H, Calcium 9.5, Phosphorus 2.9, Total Bilirubin 0.46, Triglycerides 92, Cholesterol 186, VLDL Cholesterol 18, HDL Cholesterol 37 L, Cholesterol/HDL Ratio 5.03 Rhythm: EKG: ECHO: Stress Test: Cardiac Cath: PCI: CT Surgery: Holter monitor: EPS: PPM: CXR: Chest CT Scan: Radiography Diagnostic Testing: Radiology Impression Chest X-Ray 07/05/25 20:58 IMPRESSION: Stable mild cardiomegaly with slightly decreased pulmonary vascular congestion. Reading Location: [facility] Head/Neck CTA 07/06/25 00:42 IMPRESSION: The ascending aorta is dilated to 4.0 cm in AP diameter. There is a 1.1 x 1.3 cm enlarged pretracheal lymph node.There is subcutaneous edema throughout the anterior and right neck with no definite organized or drainable collection, new. There is asymmetric enlargement of the right submandibular gland with a 0.2 cm calcified focus, image 280/628, which can indicate stone, unchanged in position compared to the prior. There is mucosal thickening in the floor of the right and left maxillary sinus. 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 Reading [facility] Venous Doppler Study 07/06/25 05:25 Interpretation Summary Deep veins of the lower extremities are bilaterally patent and compressible segmentally. There is no evidence of deep vein thrombosis on either side. Valvular competence appears intact within the proximal deep venous systems bilaterally. The great saphenous veins appear bilaterally patent and compressible segmentally. Ordering Physician: Mitchell Deras Referring Physician: Beka Bowie Performed By: Lety Canchola, [place], RVT PHANIA Risk Score for UA/STEMI Assesmment (YES = 1) Risk Stratification Applicable: Yes Age > or = 65: No > or = 3 CAD risk factors (HTN, Hypercholesterolemia, Diabetes, family hx, current smoker): Yes Known CAD (Stenosis > or = 50%): Yes ASA used in past 7 days: Yes Severe angina (> or = 2 episodes in 24 hrs): No EKG ST change > or = 0.5mm: No Positive cardiac markers: No Score ESTEPHANIA Risk Score of mortality/ recurrent ischemic event over the next 14 days: 3 = 13.2% Intermediate Risk 07/06/25 1742 Cosigner Signature (if applicable): CC: Dr. Beka Bowie MD~ Signed [facility]08-18-[address] [facility] Medical Records Department [address] [place] [address] Progress Note 07/06/25 0855 MR#: [id number] Acct: [id number] Name: LATONYA ELDER Rep #:[id number] : 1970 54 From: Sheyla Ortega MD PCP: Dr. Beka Bowie MD Status:A DM SINDY Location: [place] [address] Subjective Subjective Patient seen and examined with his nurse by his bedside. He complained of his his blood sugars running high this morning. He is on a low dose sliding scale, which he says is not enough coverage. He has not had any more chest pain since admission. Review of systems is otherwise negative. Objective Data Objective Data Vital Signs: Vital Signs Temp Pulse Resp BP Pulse Ox O2 Del Method 98.1 F 93 16 161/101 H 98 Room Air 07/06/25 06:26 07/06/25 06:26 07/06/25 06:26 07/06/25 06:26 07/06/25 06:26 07/06/25 06:26 Oxygen Delivery Method Room Air Weight: 225 lb 8.526 oz Body Mass Index (BMI) 34.2 Intake & Output: Intake and Output for Last 24 Hours 07/04/25 07/05/25 07/06/25 23:59 23:59 23:59 Intake Total 104 / 104 Balance 104 / 104 Lab / Micro Data 07/06/25 04:40 07/06/25 04:40 Labs: Laboratory Results - last 24 hr 07/05/25 20:35: WBC 14.2 H, RBC 5.40, Hgb 16.1, Hct 45.7, MCV 84.6, MCH 29.8, MCHC 35.2, RDW Std Deviation 40.7, RDW Coeff of Narcisa 13.2, Plt Count 267, MPV 10.5, Immature Gran % (Auto) 0.400, Neut % (Auto) 55.7, Lymph % (Auto) 31.6, Randall % (Auto) 10.1 H, Eos % (Auto) 1.6, Baso % (Auto) 0.6, AbsoluteNeuts (auto) 7.9 H, Absolute Lymphs (auto) 4.50, Nucleated RBC % 0, Platelet Estimate ADEQUATE, RBCMorphology NORM C+C, D-Dimer Quant (PE/DVT) 0.60 H*, Sodium 139, Potassium 3.5, Chloride 101, Carbon Dioxide 22.7, Anion Gap 16 H, BUN 14, Creatinine 0.93, Estim Creat Clear Calc 108.20, Est GFR (MDRD) Non-Af 99, BUN/Creatinine Ratio 15.6, Glucose 315 H, Hemoglobin A1c 11.5 H, Calcium 10.0, Troponin T High Sens 18 D 07/05/25 22:32: Magnesium 1.9, Troponin T Hi Sens 2 Hr 27 H, Ethyl Alcohol Cancelled 07/06/25 00:27: Troponin T Hi Sens 4Hr 60 H*, NT pro BNP II Cancelled 07/06/25 00:27: NT pro BNP II 201, b-Hydroxybutyric mmol/L 0.1, TSH Cancelled 07/06/25 00:27: TSH 3.580, Ethyl Alcohol < 10.1 07/06/25 01:31: Urine Color Yellow, Urine Clarity Clear, Urine pH 7.0, Ur Specific [employer] 1.010, Urine Protein 30 H, Urine Glucose (UA) 1000 H, Urine Ketones Negative, Urine Occult Blood 10 H, UrineNitrite Negative, Urine Bilirubin Negative, Urine Urobilinogen Normal, Ur Leukocyte Esterase Negative, Urine RBC 0-5 SEEN, Urine WBC 0 SEEN, Ur Squamous Epith Cells 0 SEEN, Urine Bacteria RARE, UrineMucus 0 SEEN, Urine Opiates Screen PRESUMPTIVE POSITIVE, U Buprenorphine Qual NEGATIVE, Ur Oxycodone Screen NEGATIVE, Urine Methadone Screen NEGATIVE, Urine Fentanyl Screen NEGATIVE, Ur Barbiturates Screen NEGATIVE, Ur Phencyclidine Scrn NEGATIVE, Ur Amphetamines Screen NEGATIVE, U Benzodiazepines Scrn NEGATIVE, Urine Cocaine Screen NEGATIVE, U Cannabinoids Screen PRESUMPTIVE POSITIVE 07/06/25 01:39: POC Glucose 263 H 07/06/25 04:40: WBC 13.5 H, RBC 5.46, Hgb 16.0, Hct 46.7, MCV 85.5, MCH 29.3, MCHC 34.3, RDW Std Deviation 40.7, RDW Coeff of Narcisa 13.2, Plt Count 248, MPV 10.7, Immature Gran % (Auto) 0.400, Neut % (Auto) 61.9, Lymph % (Auto) 24.7, Randall % (Auto) 11.3 H, Eos % (Auto) 1.3, Baso % (Auto) 0.4, AbsoluteNeuts (auto) 8.3 H, Absolute Lymphs (auto) 3.34, Nucleated RBC % 0, Differential Comment SCANNED, Platelet Estimate ADEQUATE, Polychromasia 1+, Anisocytosis 1+, Ovalocytes 1+, Sodium 139, Potassium 3.2 L, Chloride 99, Carbon Dioxide 26.0, Anion Gap 13, BUN 11, Creatinine 0.90, Estim Creat Clear Calc 110.04, Est GFR (MDRD) Non-Af 102, BUN/Creatinine Ratio 12.3, Glucose 297 H, Calcium 9.5, Phosphorus 2.9, Total Bilirubin 0.46, AST 26, ALT 16, Alkaline Phosphatase 139 H, Total Protein 7.5, Albumin4.1, Globulin 3.3, Albumin/Globulin Ratio 1.2, Triglycerides 92, Cholesterol 186, LDL Cholesterol, Calc 131, VLDL Cholesterol 18, HDL Cholesterol 37 L, Cholesterol/HDL Ratio 5.03 07/06/25 06:34: POC Glucose 299 H Radiography Diagnostic Testing: Radiology Impression Chest X-Ray 07/05/25 20:58 IMPRESSION: Stable mild cardiomegaly with slightly decreased pulmonary vascular congestion. Reading Location: [facility] Head/Neck CTA 07/06/25 00:42 IMPRESSION: The ascending aorta is dilated to 4.0 cm in AP diameter. There is a 1.1 x 1.3 cm enlarged pretracheal lymph node.There is subcutaneous edema throughout the anterior and right neck with no definite organized or drainable collection, new. There is asymmetric enlargement of the right submandibular gland with a 0.2 cm calcified focus, image 280/628, which can indicate stone, unchanged in position compared to the prior. There is mucosal thickening in the floor of the right and left maxillary sinus. 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 Reading Location: [facility] Physical Exam Const alert, oriented x3, no apparent distress and well nourished General Appearance: cooperative HEENT normocephalic, head/scalp atraumatic, moist oral mucous membranes and oropharynxnormal Eyes EOMs intact bilaterally Neck no lymphadenopathy and supple Lymph Lymphatic: no lymphedema noted Resp normal respiratory effort, normal air movement and clear to auscultation bilaterally Cardio regular rate, regular rhythm, S1 normal heart sound, S2 normal heart sound and no murmurs GI normal to inspection, nondistended, normoactive bowel sounds, soft to palpation,non-tender and non-distended Extremity normal capillary refill, no clubbing, cyanosis or edema and no calf tenderness General Extremity: no tenderness to palpation of joints or extremities Skin General Skin Exam: no breakdown Neuro CN's II-XII intact bilaterally and no focal motor deficits Motor Exam: general weakness Psych thought process normal and cooperative Appearance: appropriate Assessment & Plan Assessment/Plan (1) Hypertensive emergency: (2) Chest pain: QUALIFIERS: Chest pain type: unspecified Qualified Code(s): R07.9- Chest pain, unspecified PLAN: Plan #Hypertensive emergency * resolved. BP was 237/126 on admission, with associated chest pain and elevated troponin, indicative of hypertensive emergency. * has known ischemic cardiomyopathy with known EF of 25% * on IV hydralazine prn. Continue current BP meds- amlodipine 10mg daily, carvedilol 25mg daily, lisinopril 20mg bid * #CHest pain to rule out ACS * has known ischemic cardiomyopathy with EF of 25% and stage III diastolic dysfunction as well as severe global hypokinesis * has had chronic episodic chest pain * tropnins did trend up gently * on SL nitroglycerin, aspirin, plavix and andre * for stress test this morning- stress test was abnormal and showed evidence of prior infarct and new perfusion defect not seen on prior test suggestive of ischemia in the LAD territory. * He therefore had cardiac cath after cardiology was consulted and cardiac cath showed 80% de enrrique stenosis of the mid LAD s/p PCI with insertion of stent. * also on ranexa and imdur. * #Type 2 diabetes mellitus with hyperglycemia * blood sugars running high this morning. ISS. Accuchecks ACHS * A1C pending. Home dose humalog resumed and patient placed on medium to high dose sliding scale * #Parotitis: Wbc was elevated on admission. On IV clindamycin. Wbc today is down to 13.5. #Hyperlipidemia: on statin #Histoyr of bilateral DVTs: was previously on eliquis but this has been discontinued. DVT prophylaxis: on lovenox Charges/Coding Visit Charges Inpatient E&M: 01503 Subs Hosp L2 07/06/25 1634 Sheyla Ortega MD Cosigner Signature (if applicable): CC: ~ Signed [facility]08-18-2025 Study report [facility] Cardiac Rehab [address] [place] [address] CR: Phase I Education Summary MR#: [id number] Acct: [id number] Name: LATONYA ELDER Rep #:[id number] : 1970 54 From: Edmundo Villatoro PCP: Dr. Beka Bowie MD DOS: General Education Discussed with Patient CAD and cardiac anatomy and function:: Family communicates acknowledgment and Needs reinforcement Explanation of diagnoses and procedures:: Family communicates acknowledgment andNeeds reinforcement Sign/Symptoms of NH:: Family communicates acknowledgment and Needs reinforcement Antiplatelet therapy: Family communicates acknowledgment and Needs reinforcement Proper use of NTG-SL: Family communicates acknowledgment and Needs reinforcement Emergency procedures and activation of EMS: Family communicates acknowledgment and Needs reinforcement Compliance of all prescribed medications: Family communicates acknowledgment andNeeds reinforcement Smoking Risk Factors Patient Nicotine/Smoking Risk Factors Are:: Cigarettes Recommendations Recommendations Include:: Participation in a smoking cessation program Response Code Nicotine/Smoking Response Code:: Patient communicates acknowledgment, Family communicates acknowledgment and Needs reinforcement Dyslipidemia Risk Factors Patient Dyslipidemia Risk Factors Are:: Total Cholesterol, Triglycerides, HDL and LDL Recommendations Recommendations Include:: Lipid profile not available and Therapeutic Lifestyle Change dietary guidelines Response Code Dyslipidemia Response Code:: Patient communicates acknowledgment, Family communicates acknowledgment and Needs reinforcement Overweight/Obesity Risk Factors Patient Overweight/Obesity Risk Factors Are:: Obesity - > or = 30 Recommendations Recommendations Include:: Weight loss of 5-10%, Reduced calorie diet and Exercise 5-7 times/week Response Code Overweight/Obesity:: Patient communicates acknowledgment, Family communicates acknowledgment and Needs reinforcement Hypertension Recommendations Recommendations Include:: BP <130/80 if diabetic, Decrease/maintain normal body weight and Moderation of ETOH Response Code Hypertension:: Patient communicates acknowledgment, Family communicates acknowledgment and Needs reinforcement Heart Disease Risk Factors Patient Heart Disease Risk Factors Are:: Family history of heart disease < 65 years old and Previous cardiac event Recommendations Recommendations Include:: Educated family members of their risk and Educated family members of importance of prevention of heart disease Response Code Heart Disease Response Code:: Patient communicates acknowledgment, Family communicates acknowledgment and Needs reinforcement Diabetes Risk Factors Patient Diabetes Risk Factors Are:: Elevated blood sugars Recommendations Recommendations Include:: Maintain fasting blood sugars 70-110 md/dL, Maintain HgbA1c of 6% or lessand Decrease/maintain body weight Response Code Diabetes:: Patient communicates acknowledgment, Family communicates acknowledgment and Needs reinforcement Sedentary Risk Factors Patient Sedentary Risk Factors Are:: Lack of regular exercise Recommendations Recommendations Include:: Aerobic exercise 5-7 times/week for 20-30 minutes continuously, Benefits of regular exercise, Discussed home walking program and Monitored Outpatient Cardiac Rehab Response Code Sedentary Response Code:: Patient communicates acknowledgment, Family communicates acknowledgment and Needs reinforcement 07/06/25 1502 Date Edmundo W Irving Outcome assessment reviewed. Exercise plan approved as documented. Treatment plan and goals support patient needs/abilities. Continue with current plan. I certify the patient demonstrates improvement and remains willing and capable of participation. the patient continues to benefit from cardiac rehab services/training. The patient may continue at current intensity, endurance andmodality and progress per protocol. Cosigner Signature: Date CC: ~ Signed [facility]08-18-2025 History and physical note Author Mitchell Lucero [facility] Note Date/Time July 06, 2025 6: 21am [facility] Medical Records Department [address] [place] [address] H&P Exam - Hospitalist 07/05/25 2328 MR#: [id number] Acct: [id number] Name: LATONYA ELDRE Rep #:[id number] : 1970 54 From: Mitchell Marr DO PCP: Dr. Beka Bowie MD Status:A DM SINDY Location: [address] - General General Date of Admission: 07/05/25 Date of Service: 07/05/25 Chief Complaint: Chest Pain. HPI Narrative LATONYA ELDER, is a 54 M with a past medical history of with a past medical historyof essential hypertension; on carvedilol, amlodipine, lisinopril and clonidine, hyperlipidemia; on high-dose atorvastatin, obesity; with BMI of 35.4 this admission, IDDM; of unknown control on degludec and insulin lispro 20U TID, history of HONK, history of tobacco abuse (quit 09/2024); with subsequent asthma/COPD, CAD; s/p stent (2003) and NSTEMI (2016, 2018 & 2020) on BASA and clopidogrel, Ischemic Cardiomyopathy; with chronic chest pain on ranolazine, ISMO and prn NTG, history of CHF; with peripheral edema, history of bilateral LEDVT's; previously on apixaban, history of sepsis, history of appendectomy, history of hernia; s/p repair (2008), remote history of umbilical hernia repair (1971), history of migraine & cluster headaches, history of sinusitis, history of vitamin D deficiency, OA; with chronic Left shoulder pain and history of necksurgery plus history of admission here from October 12, 2024 to October 13, 2024 for treatment of AE COPD with Acute Bronchitis, mild AE CHF with elevated troponin and Respiratory Insufficiency and recent admission here from February 10, 2025 to February 11, 2025 with CTA of the head and neck with IV contrast revealing Large Vessel Occlusion of 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 segment of the Right anterior cerebral artery with retrograde filling via the anterior communicating artery with small caliberdistal Right ARELY with radiologist recommending neuro IR consultation for discussion of endovascular thrombectomy versus anticoagulation and ~50% stenosisof the Left carotid artery by NASCET criteria with CT of the brain without contrast revealing ~1.9 cm x ~1.1 cm x ~1.3 cm hypodense area seen within the deep white matter along the Right lateral convexity which was new since prior examination with differential possibilities including: Acute/subacute CVA versusintracranial mass with MRI of the brain recommended for further evaluation at this complicated by Uncontrolled Hypertension of 186/124 mmHg and mild AE COPD with Acute Bacterial Bronchitis who presents to [facility] ER complaining of Chest Pain. Mr. Elder reports his acute symptoms began ~20 minutes prior to admission with the sudden-onset of chest pain that was substernal, tight and constant with an additional feeling of cramping in his chest with nothing seeming to make the pain better or worse. He also admits to associated SOB, diaphoresis, palpitations, neck pain and a golf ball sized area of swelling under his Rightmandible that started earlier today with headache, nausea and vomiting causing bilious emesis. He denies related fever, chills, runny nose, sore throat, ear pain, visual changes, dysuria, hematuria, paresthesias, focal neurologic weakness or rash. In the ER he was noted to have a highly elevated initial blood pressure of 237/126 mmHg consistent with suspected Hypertensive Emergency with Chest Pain and an elevated second troponin of 27 ng/L with a corresponding CXR that revealed stable mild cardiomegaly with slightly decreased pulmonary vascular congestion complicated by Hyperglycemia of 315 mg/dL present on admission in the setting of previously known DM-2 and clinical evidence of Parotitis with Leukocytosis of 14.2K present on admission with patient ordered CT scan of the head/neck with patient started on IV clindamycin and he was then admitted to the PCU under observation status for ongoing care for a stay that isexpected to be less than 2 midnights. [facility] Medical History (Updated 07/06/25 @ 00:[address] Mitchell Dreas DO) Obesity (BMI 30-39.9) CVA (cerebral vascular accident) Vitamin D deficiency History of DVT (deep vein thrombosis) Respiratory [...] elevation myocardial infarction (NSTEMI) (11/22/20) Atherosclerosis of [place] coronary artery of [place] heart without angina pectoris Non-ST elevation [place] (NSTEMI) Home Medications ?Medication ?Instructions ?Recorded ?Last Taken ?Type aspirin 81 mg chewable tablet 81 mg PO DAILY heart hea lth 04/27/22 02/10/25 History loratadine 10 mg tablet 10 mg PO DAILY PRN allergies 06/26/22 Unknown History insulin degludec 200 unit/mL (3 50 unit (0.25 mL) subc ut QHS blood 12/28/23 02/09/25 Rx mL) subcutaneous pen (Tresiba sugar 3 months #22.5 mL FlexTouch U-200 insulin) [facility] 02/10/25 Rx tabs clonidine HCl [...] History subcutaneous pen (Humalog KwikPen (U-100) Insulin) albuterol sulfate 90 mcg/actuation 2 puff inhalation 4 X/DAY PRN 02/11/25 Unknown Rx aerosol inhaler Shortness Of Breath #8.5 gra ms atorvastatin 80 mg tablet 80 mg PO QHS cholesterol #90 tabs 02/11/25 Unknown Rx amlodipine 10 mg tablet 10 mg PO DAILY blood pressur e #90 02/12/25 Unknown Rx tabs clopidogrel 75 mg tablet (Plavix) 75 mg PO DAILY anti platelet #90 02/12/25 Unknown Rx tabs isosorbide mononitrate 60 mg 60 mg PO BID heart #180 T ABLETS 02/12/25 Unknown Rx tablet,extended release 24 hr ranolazine 1,000 mg 1,000 mg PO BID heart #60 ta bs 02/12/25 Unknown Rx tablet,extended release,12 hr nitroglycerin 0.4 mg sublingual 0.4 mg sublingual Q5-1 5M chest 06/01/25 Unknown Rx tablet pain #25 tabs lisinopril 20 mg tablet 20 mg PO BID blood pressure 07/05/25 Unknown History Allergy/AdvReac Type Severity Reaction Status Date / Time amoxicillin trihydrate (From Allergy Rash Verified 07/05/25 20:31 Augmentin) potassium clavulanate (From Allergy Rash Verified 07/05/25 20:31 Augmentin) ticagrelor (From Brilinta) Allergy Shortness Verified 07/05/25 20:31 of breath codeine AdvReac Nausea Verified 07/05/25 20:31 Family History Sister Myocardial infarction, Onset Age: [...] fever or chills. Eyes: Patient denies changes in vision or discharge from eyes. ENT: Patient denies runny nose, sore throat or ear pain. Resp: Patient admits to SOB but he denies wheezing or worsening cough. CV: Patient admits to chest pain, palpitations and diaphoresis as per HPI. GI: Patient admits to nausea and vomiting but he denies abdominal pain, diarrheaor constipation. : Patient denies dysuria, hematuria or urinary frequency. MSK: Patient admits to neck pain but he denies back pain. Skin: Patient denies rash, abscess, wounds or jaundice. Psych: Patient denies symptoms of uncontrolled depression or anxiety. Neuro: Patient admits to headache but he denies paresthesias or focal neurologicdeficits. Allergy: Patient denies lip swelling, tongue swelling or urticaria. Hematology: Patient denies easy bleeding or easy bruisability. Endocrinology: Patient denies polyuria, polydipsia, polyphagia or heat/cold intolerance. 14 point ROS otherwise negative except for positives noted above in HPI. Vital Signs Vital Signs Vital Signs: 07/05/25 20:31 07/05/25 20:44 07/05/25 21:00 Temperature 98 F Temperature Source Oral Pulse Rate 114 H 97 Respiratory Rate 22 H Blood Pressure 237/126 H 193/110 H Blood Pressure Mean 163 Pulse Ox 98 Oxygen Delivery Method Nasal Cannula 07/05/25 21:05 07/05/25 21:30 07/05/25 22:00 Temperature Temperature Source Pulse Rate 101 H 95 86 Respiratory Rate 29 H 27 H Blood Pressure 173/106 H 182/114 H 191/111 H Blood Pressure Mean 136 137 Pulse Ox 95 92 Oxygen Delivery Method Room Air Room Air 07/05/25 23:00 07/05/25 23:00 Temperature 98.5 F Temperature Source Pulse Rate 80 80 Respiratory Rate 20 H 20 H Blood Pressure 181/111 H 181/111 H Blood Pressure Mean 134 134 Pulse Ox 96 96 Oxygen Delivery Method Weight Weight: 232 lb 12.93 oz Body Mass Index (BMI) 35.4 Physical Exam Const alert, oriented x3 and no apparent distress Constitutional Narrative: Obese with chronically ill but nontoxic appearance. General Appearance: cooperative HEENT normocephalic, head/scalp atraumatic, hearing grossly normal bilaterally and moist oral mucous membranes Eyes PERRL, EOMs intact bilaterally and conjunctivae normal Neck no lymphadenopathy, supple and no JVD Resp normal respiratory effort, no retractions, no use of accessory muscles and clearto auscultation bilaterally Cardio regular rate and regular rhythm GI normal to inspection, nondistended, normoactive bowel sounds, soft to palpation,non-tender and non-distended Extremity normal to inspection, full ROM and no clubbing, cyanosis or edema Skin Skin Narrative: Patient has no evidence of rash, abscess, wounds or jaundice. Neuro oriented x3, CN's II-XII intact bilaterally, moves all extremities and no focal motor deficits Sensorium / Orientation: awake, alert, oriented to person, oriented to place andoriented to time Speech: speech normal Psych affect normal Results Medical Records Data Attestation: I reviewed the patient's medical records Lab / Micro Data Attestation: I reviewed the patient's lab results. 07/05/25 20:35 07/05/25 20:35 Labs: Laboratory Results - last 24 hr 07/05/25 20:35: WBC 14.2 H, RBC 5.40, Hgb 16.1, Hct 45.7, MCV 84.6, MCH 29.8, MCHC 35.2, RDW Std Deviation 40.7, RDW Coeff of Narcisa 13.2, Plt Count 267, MPV 10.5, Immature Gran % (Auto) 0.400, Neut % (Auto) 55.7, Lymph % (Auto) 31.6, Randall % (Auto) 10.1 H, Eos % (Auto) 1.6, Baso % (Auto) 0.6, Absolute Neuts (auto) 7.9 H, Absolute Lymphs (auto) 4.50, Nucleated RBC % 0, Platelet Estimate ADEQUATE, RBC Morphology NORM C+C, Sodium 139, Potassium 3.5, Chloride 101, Carbon Dioxide 22.7, Anion Gap 16 H, BUN 14, Creatinine 0.93, Estim Creat Clear Calc 108.20, Est GFR (MDRD) Non-Af 99, BUN/Creatinine Ratio 15.6, Glucose 315 H,Calcium 10.0, Troponin T High Sens 18 D 07/05/25 22:32: Troponin T Hi Sens 2 Hr 27 H Imaging Radiology Impression Chest X-Ray 07/05/25 20:58 IMPRESSION: Stable mild cardiomegaly with slightly decreased pulmonary vascular congestion. 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 Highly elevated initial blood pressure of 237/126 mmHg consistent with suspected Hypertensive Emergency with Chest Pain and an elevated second troponinof 27 ng/L in the setting of previously known CAD; s/p stent (2003) and NSTEMI (2016, 2018 & 2020) on BASA and clopidogrel plus Ischemic Cardiomyopathy; with LVEF ~25% with stage III diastolic dysfunction and severe global HK of the LV onrecent echocardiogram (02/11/2025) with chronic chest pain on ranolazine - Admit to PCU under observation status. Continue BASA, clopidogrel and statin as before. Serialize troponin. Check chemical stress test in AM to evaluate for potential underlying ischemia. Restart home antihypertensive regimen plus give prn IV hydralazine for systolic blood pressure > 160 mmHg. Check TSH, UDS and ASHLEY. Give ondansetron IV prn for nausea and vomiting. Give acetaminophen prn for [id number] (level 1-5/10) pain or fever. Give morphine IV prn for severe (level 6-10/10) pain. 2. Hyperglycemia of 315 mg/dL present on admission in the setting of previouslyknown IDDM complicating #1 - Keep NPO for now. Cut long-acting insulin dose by ~30% to prevent hypoglycemia. Check FSBS q. 6 hours plus lowest-intensity SSI. Check HgbA1c to objectively assess quality of diabetic control. 3. Clinical evidence of Parotitis with Leukocytosis of 14.2K present on admission with no overt signs of infection at this time due to likely acute stress response arising from #1 - Check CT scan of the head/neck with contrast to confirm suspicion and start IV clindamycin and recheck CBC in AM to follow trend. 4. Obesity; with BMI of 35.4 this admission adding to the burden of disease outlined from #1 - #3 - Weight loss will be recommended. Check TSH. This complicates his case and may hamper recovery. 5. 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 with retrograde filling via the anterior communicating artery with small caliber distal Right ARELY with radiologist recommending neuro IR consultation for discussion of endovascular thrombectomy versus anticoagulation and ~50% stenosisof the Left carotid artery by NASCET criteria with CT of the brain without contrast revealing ~1.9 cm x ~1.1 cm x ~1.3 cm hypodense area seen within the deep white matter along the Right lateral convexity which was new since prior examination with differential possibilities including: Acute/subacute CVA versusintracranial mass with MRI of the brain recommended for further evaluation at this complicated by Uncontrolled Hypertension of 186/124 mmHg and mild AE COPD with Acute Bacterial Bronchitis - Noted. 6. Hyperlipidemia; on high-dose atorvastatin - Resume statin and check Lipid Profile in light of #1. 7. History of tobacco abuse (quit 09/2024); with subsequent asthma/COPD - Stable with no evidence of acute flare at this time. Continue prn and schedulednebulizers/inhalers. 8. History of HONK - Noted. 9. History of CHF; with peripheral edema - Noted. 10. History of bilateral LE DVT's; previously on apixaban - Apparently stable with no evidence of recurrence at this time. 11. History of sepsis - Noted. 12. History of appendectomy - Noted. 13. History of hernia; s/p repair (2008) - Noted. 14. Remote history of umbilical hernia repair (1971) - Noted. 15. History of migraine & cluster headaches - We will follow pain regimen and scales outlined in #1. 16. History of sinusitis - Noted. 17. History of vitamin D deficiency - Check vitamin D level. 18. OA; with chronic Left shoulder pain and history of neck surgery - Stable. 19. DVT prophylaxis - Enoxaparin 40 mg sq daily plus SCD's. Total time: Approximately (but not less than) 85 minutes. Charges/Coding Visit Charges OBSV E&M: 48925 Observ/hosp same date L3 07/06/25 0621 <Electronically signed by Mitchell Deras DO> Cosigner Signature (if applicable): CC: Dr. Mitchell Deras DO; Dr. Beka Bowie MD~ Signed [facility] Work Phone: [phone] Radiology Diagnostic study note [facility] Imaging Services [address] [place] [address] CTA Head AND Neck W/ Contrast MR#: [id number] Acct: [id number] Name: LATONYA ELDER Rep #: [id number] : 1970 M 54 From: Escobar Bowens MD PCP: Dr. Beka Bowie MD Status: A DM SINDY Study:CTA Head AND Neck W/ Contrast Date of E xam: 07/06/25 Exam# [id number] Ordering Dr: Mitchell King DO PROCEDURE: CTA HEAD AND NECK W/ CONTRAST 07/06/2025 REASON FOR EXAM: RIGHT PAROTITIS. TECHNIQUE: CTA HEAD AND NECK W/ CONTRAST Multiplanar Sagittal and Coronal images were obtained. CONTRAST: 100 cc Isovue 370 One or more dose reduction techniques were used (e.g., Automated exposure control, adjustment of the mA and/or kV according to patient size, use of iterative reconstruction technique). RADIATION DOSE SUMMARY: DLP: 1662 mGycm COMPARISON: February 10, 2025 FINDINGS: Aortic Arch: The ascending aorta is dilated to 4.0 cm in AP diameter. Brachiocephalic and Subclavians: Patent RIGHT Carotid: Right CCA: Patent Right ICA: Patent Maximum stenosis (NASCET): 0 % Right ECA: Patent LEFT Carotid: Left CCA: Patent Left ICA: Patent Maximum stenosis (NASCET): 0 % Left ECA: Patent Vertebrals: Patent RIGHT Vertebral: Patent LEFT Vertebral: Patent Anatomy: Anatomic Aneurysm or avm: None Anterior cerebral arteries: Occluded right A1 segment anterior cerebral artery. The right A2 segment is patent via collateral. Patent anterior cerebral on the left Middle cerebral arteries: Patent Basilar artery: Patent Posterior cerebral arteries: Patent Other major branches of the posterior circulation: Patent Major venous structures: Patent Other findings: Neck: There is a 1.1 x 1.3 cm enlarged pretracheal lymph node. There is subcutaneous edema throughout the anterior and right neck with no definite organized or drainable collection. There is asymmetric enlargement of the right submandibular gland with a 0.2 cm calcified focus, image 280/628, which can indicate stone. Lungs: Lungs are clear bones: There is mucosal thickening in the floor of the right and left maxillary sinus. Thereis hardware fusion at C5-6. CT/CTA Head AND Neck W/ Contrast IMPRESSION: The ascending aorta is dilated to 4.0 cm in AP diameter. There is a 1.1 x 1.3 cm enlarged pretracheal lymph node.There is subcutaneous edema throughout the anterior and right neck with no definite organized or drainable collection, new. There is asymmetric enlargement of the right submandibular gland with a 0.2 cm calcified focus, image 280/628, which can indicate stone, unchanged in position compared to the prior. There is mucosal thickening in the floor of the right and left maxillary sinus. 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 Reading Location: [facility] CC: Dr. Mitchell Deras DO; Dr. Beka Bowie MD ~ Public Health Dietitian: Signed [facility]08-18-2025 History and physical note [facility] Medical Records Department [address] [place] [address] H&P Exam - Hospitalist 07/05/25 1622 MR#: [id number] Acct: [id number] Name: LATONYA ELDER Rep #:[id number] : 1970 54 From: Mitchell Marr DO PCP: Dr. Beka Bowie MD Status:A DM SINDY Location: [address] - General General Date of Admission: 07/05/25 Date of Service: 07/05/25 Chief Complaint: Chest Pain. HPI Narrative LATONYA ELDER, is a 54 M with a past medical history of with a past medical historyof essential hypertension; on carvedilol, amlodipine, lisinopril and clonidine, hyperlipidemia; on high-dose atorvastatin, obesity; with BMI of 35.4 this admission, IDDM; of unknown control on degludec and insulin lispro 20U TID, history of HONK, history of tobacco abuse (quit 09/2024); with subsequent asthma/COPD, CAD; s/p stent (2003) and NSTEMI (2016, 2018 & 2020) on BASA and clopidogrel, Ischemic Cardiomyopathy; with chronic chest pain on ranolazine, ISMO and prn NTG, history of CHF; with peripheral edema,history of bilateral LEDVT's; previously on apixaban, history of sepsis, history of appendectomy, hi story of hernia; s/p repair (2008), remote history of umbilical hernia repair (1971), history of migraine & cluster headaches, history of sinusitis, history of vitamin D deficiency, OA; with chronic Left shoulder pain and history of necksurgery plus history of admission here from October 12, 2024 to October 13, 2024 for treatment of AE COPD with Acute Bronchitis, mild AE CHF with elevated troponin and Respiratory Insufficiency and recent admission here from February 10, 2025 to February 11, 2025 with CTA of the head and neck with IV contrast revealing Large Vessel Occlusion of the A1 segment of the Right anterior cerebral artery with retrograde filling via the anterior communicating artery w ith small caliberdistal Right ARELY with radiologist recommending neuro IR consultation for discussion of endovascular thrombectomy versus anticoagulation and ~50% stenosisof the Left carotid artery byNASCET criteria with CT of the brain without contrast revealing ~1.9 cm x ~1.1 cm x ~1.3 cm hypodense area seen within the deep white matter along the Right lateral convexity which was new since prior examination with differential possibilities including: Acute/subacute CVA versusintracranial mass with MRI of the brain recommended for further evaluation at this complicated by Uncontrolled Hypertension of 186/124 mmHg and mild AE COPD with Acute Bacterial Bronchitis who presents to [facility] ER complaining of Chest Pain. Mr. Elder reports his acute symptoms began ~20 minutes prior to admission with the sudden-onset of chest pain that was substernal, tight and constant with an additional feeling of cramping in his chest with nothing seeming to make the pain better or worse. He also admits to associated SOB, diaphoresis, palpitations, neck pain and a golf ball sized area of swelling under his Rightmandible that started earlier today with headache, nausea and vomiting causing bilious emesis. He denies related fever, chills, runny nose, sore throat, ear pain, visual changes, dysuria, hematuria, paresthesias, focal neurologic weakness or rash. In the ER he was noted to have a highly elevated initial blood pressure of 237/126 mmHg consistent with suspected Hypertensive Emergency with Chest Pain and an elevatedsecond troponin of 27 ng/L with a corresponding CXR that revealed stable mild cardiomegaly with slightly decreased pulmonary vascular congestion complicated by Hyperglycemia of 315 mg/dL present on admission in the setting of previously known DM-2 and clinical evidence of Parotitis with Leukocytosis of 14.2K present on admission with patient ordered CT scan of the head/neck with patient started on IV clindamycin and he was then admitted to the PCU under observation status for ongoing care for astay that isexpected to be less than 2 midnights. [facility] Medical History (Updated 07/06/25 @ 00:[address] Mitchell Deras, ) Obesity (BMI 30-39.9) CVA (cerebral vascular accident) Vitamin D deficiency History of DVT (deep vein thrombosis) Respiratory [...] elevation myocardial infarction (NSTEMI) (11/22/20) Atherosclerosis of [place] coronary artery of [place] heart without angina pectoris Non-ST elevation [place] (NSTEMI) Home Medications ?Medication ?Instructions ?Recorded ?Last Taken ?Type aspirin 81 mg chewable tablet 81 mg PO DAILY heart hea lth 04/27/22 02/10/25 History loratadine 10 mg tablet 10 mg PO DAILY PRN allergies 06/26/22 Unknown History insulin degludec 200 unit/mL (3 50 unit (0.25 mL) subc ut QHS blood 12/28/23 02/09/25 Rx mL) subcutaneous pen (Tresiba sugar 3 months #22.5 mL FlexTouch U-200 insulin) [facility] 02/10/25 Rx tabs clonidine HCl [...] History subcutaneous pen (Humalog KwikPen (U-100) Insulin) albuterol sulfate 90 mcg/actuation 2 puff inhalation 4 X/DAY PRN 02/11/25 Unknown Rx aerosol inhaler Shortness Of Breath #8.5 gra ms atorvastatin 80 mg tablet 80 mg PO QHS cholesterol #90 tabs 02/11/25 Unknown Rx amlodipine 10 mg tablet 10 mg PO DAILY blood pressur e #90 02/12/25 Unknown Rx tabs clopidogrel 75 mg tablet (Plavix) 75 mg PO DAILY anti platelet #90 02/12/25 Unknown Rx tabs isosorbide mononitrate 60 mg 60 mg PO BID heart #180 T ABLETS 02/12/25 Unknown Rx tablet,extended release 24 hr ranolazine 1,000 mg 1,000 mg PO BID heart #60 ta bs 02/12/25 Unknown Rx tablet,extended release,12 hr nitroglycerin 0.4 mg sublingual 0.4 mg sublingual Q5-1 5M chest 06/01/25 Unknown Rx tablet pain #25 tabs lisinopril 20 mg tablet 20 mg PO BID blood pressure 07/05/25 Unknown History Allergy/AdvReac Type Severity Reaction Status Date / Time amoxicillin trihydrate (From Allergy Rash Verified 07/05/25 20:31 Augmentin) potassium clavulanate (From Allergy Rash Verified 07/05/25 20:31 Augmentin) ticagrelor (From Brilinta) Allergy Shortness Verified 07/05/25 20:31 of breath codeine AdvReac Nausea Verified 07/05/25 20:31 Family History Sister Myocardial infarction, Onset Age: [...] fever or chills. Eyes: Patient denies changes in vision or discharge from eyes. ENT: Patient denies runny nose, sore throat or ear pain. Resp: Patient admits to SOB but he denies wheezing or worsening cough. CV: Patient admits to chest pain, palpitations and diaphoresis as per HPI. GI: Patient admits to nausea and vomiting but he denies abdominal pain, diarrheaor constipation. : Patient denies dysuria, hematuria or urinary frequency. MSK: Patient admits to neck pain but he denies back pain. Skin: Patient denies rash, abscess, wounds or jaundice. Psych: Patient denies symptoms of uncontrolled depression or anxiety. Neuro: Patient admits to headache but he denies paresthesias or focal neurologicdeficits. Allergy: Patient denies lip swelling, tongue swelling or urticaria. Hematology: Patient denies easy bleeding or easy bruisability. Endocrinology: Patient denies polyuria, polydipsia, polyphagia or heat/cold intolerance. 14 point ROS otherwise negative except for positives noted above in HPI. Vital Signs Vital Signs Vital Signs: 07/05/25 20:31 07/05/25 20:44 07/05/25 21:00 Temperature 98 F Temperature Source Oral Pulse Rate 114 H 97 Respiratory Rate 22 H Blood Pressure 237/126 H 193/110 H Blood Pressure Mean 163 Pulse Ox 98 Oxygen Delivery Method Nasal Cannula 07/05/25 21:05 07/05/25 21:30 07/05/25 22:00 Temperature Temperature Source Pulse Rate 101 H 95 86 Respiratory Rate 29 H 27 H Blood Pressure 173/106 H 182/114 H 191/111 H Blood Pressure Mean 136 137 Pulse Ox 95 92 Oxygen Delivery Method Room Air Room Air 07/05/25 23:00 07/05/25 23:00 Temperature 98.5 F Temperature Source Pulse Rate 80 80 Respiratory Rate 20 H 20 H Blood Pressure 181/111 H 181/111 H Blood Pressure Mean 134 134 Pulse Ox 96 96 Oxygen Delivery Method Weight Weight: 232 lb 12.93 oz Body Mass Index (BMI) 35.4 Physical Exam Const alert, oriented x3 and no apparent distress Constitutional Narrative: Obese with chronically ill but nontoxic appearance. General Appearance: cooperative HEENT normocephalic, head/scalp atraumatic, hearing grossly normal bilaterally and moist oral mucous membranes Eyes PERRL, EOMs intact bilaterally and conjunctivae normal Neck no lymphadenopathy, supple and no JVD Resp normal respiratory effort, no retractions, no use of accessory muscles and clearto auscultation bilaterally Cardio regular rate and regular rhythm GI normal to inspection, nondistended, normoactive bowel sounds, soft to palpation,non-tender and non-distended Extremity normal to inspection, full ROM and no clubbing, cyanosis or edema Skin Skin Narrative: Patient has no evidence of rash, abscess, wounds or jaundice. Neuro oriented x3, CN's II-XII intact bilaterally, moves all extremities and no focal motor deficits Sensorium / Orientation: awake, alert, oriented to person, oriented to place andoriented to time Speech: speech normal Psych affect normal Results Medical Records Data Attestation: I reviewed the patient's medical records Lab / Micro Data Attestation: I reviewed the patient's lab results. 07/05/25 20:35 07/05/25 20:35 Labs: Laboratory Results - last 24 hr 07/05/25 20:35: WBC 14.2 H, RBC 5.40, Hgb 16.1, Hct 45.7, MCV 84.6, MCH 29.8, MCHC 35.2, RDW Std Deviation 40.7, RDW Coeff of Narcisa 13.2, Plt Count 267, MPV 10.5, Immature Gran % (Auto) 0.400, Neut % (Auto) 55.7, Lymph % (Auto) 31.6, Randall % (Auto) 10.1 H, Eos % (Auto) 1.6, Baso % (Auto) 0.6, AbsoluteNeuts (auto) 7.9 H, Absolute Lymphs (auto) 4.50, Nucleated RBC % 0, Platelet Estimate ADEQUATE, RBCMorphology NORM C+C, Sodium 139, Potassium 3.5, Chloride 101, Carbon Dioxide 22.7, Anion Gap 16 H, BUN 14, Creatinine 0.93, Estim Creat Clear Calc 108.20, Est GFR (MDRD) Non-Af 99, BUN/Creatinine Ratio 15.6, Glucose 315 H,Calcium 10.0, Troponin T High Sens 18 D 07/05/25 22:32: Troponin T Hi Sens 2 Hr 27 H Imaging Radiology Impression Chest X-Ray 07/05/25 20:58 IMPRESSION: Stable mild cardiomegaly with slightly decreased pulmonary vascular congestion. 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 Highly elevated initial blood pressure of 237/126 mmHg consistent with suspected Hypertensive Emergency with Chest Pain and an elevated second troponinof 27 ng/L in the setting of previously knownCAD; s/p stent (2003) and NSTEMI (2016, 2018 & 2020) on BASA and clopidogrel plus Ischemic Cardiomyopathy; with LVEF ~25% with stage III diastolic dysfunction and severe global HK of the LV onrecent echocardiogram (02/11/2025) with chronic chest pain on ranolazine - Admit to PCU under observation status. Continue BASA, clopidogrel and statin as before. Serialize troponin. Check chemical stresstest in AM to evaluate for potential underlying ischemia. Restart home antihypertensive regimen plus give prn IV hydralazine for systolic blood pressure > 160 mmHg. Check TSH, UDS and ASHLEY. Give ondansetron IV prn for nausea and vomiting. Give acetaminophen prn for [id number] (level 1-5/10)pain or fever. Give morphine IV prn for severe (level 6-10/10) pain. 2. Hyperglycemia of 315 mg/dL present on admission in the setting of previouslyknown IDDM complicating #1 - Keep NPO for now. Cut long-acting insulin dose by ~30% to prevent hypoglycemia. Check FSBS q. 6 hours plus lowest- intensity SSI. Check HgbA1c to objectively assess quality of diabetic control. 3. Clinical evidence of Parotitis with Leukocytosis of 14.2K present on admission with no overt signs of infection at this time due to likely acute stress response arising from #1 - Check CT scan of the head/neck with contrast to confirm suspicion and start IV clindamycin and recheck CBC in AM to follow trend. 4. Obesity; with BMI of 35.4 this admission adding to the burden of disease outlined from #1 - #3 -Weight loss will be recommended. Check TSH. This complicates his case and may hamper recovery. 5. 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 with retrograde filling via the anterior communicating artery with small caliber distal Right ARELY with radiologist recommending neuro IR consultation for discussion of endovascular thrombectomy versus anticoagulation and ~50% stenosisof the Left carotid artery by NASCET criteria with CT of the brain without contrast revealing ~1.9 cm x ~1.1 cm x ~1.3 cm hypodense area seen within the deep white matter along the Right lateral convexity which was new since prior examination with differential possibilities including: Acute/subacute CVA versusintracranial mass with MRI of the brain recommended for further evaluation at this complicated by Uncontrolled Hypertension of 186/124 mmHg and mild AE COPD with Acute Bacterial Bronchitis - Noted. 6. Hyperlipidemia; on high-dose atorvastatin - Resume statin and check Lipid Profile in light of #1. 7. History of tobacco abuse (quit 09/2024); with subsequent asthma/COPD - Stable with no evidence of acute flare at this time. Continue prn and schedulednebulizers/inhalers. 8. History of HONK - Noted. 9. History of CHF; with peripheral edema - Noted. 10. History of bilateral LE DVT's; previously on apixaban - Apparently stable with no evidence of recurrence at this time. 11. History of sepsis - Noted. 12. History of appendectomy - Noted. 13. History of hernia; s/p repair (2008) - Noted. 14. Remote history of umbilical hernia repair (1971) - Noted. 15. History of migraine & cluster headaches - We will follow pain regimen and scales outlined in #1. 16. History of sinusitis - Noted. 17. History of vitamin D deficiency - Check vitamin D level. 18. OA; with chronic Left shoulder pain and history of neck surgery - Stable. 19. DVT prophylaxis - Enoxaparin 40 mg sq daily plus SCD's. Total time: Approximately (but not less than) 85 minutes. Charges/Coding Visit Charges OBSV E&M: 93199 Observ/hosp same date L3 07/06/25 0621 Cosigner Signature (if applicable): CC: Dr. Mitchell Deras DO; Dr. Beka Bowie MD~ Signed [facility]08-18-2025 Evaluation note* Diagnosis Onset Date Resolution Status Admit Date Cardiac LV ejection fraction 21-30% acute July 06 12:15am Chest pain acute July 06, 025 12:15am Diabetes acute July 06 025 12:15am Elevated troponin acute July 06, 2025 12:15am Essential hypertension acute Au kay[place] 2024 12:15am History of non-ST elevation myocardial infarction (NSTEMI) November 22, 2020 acute July 06, 025 12:15am Hyperglycemia due to type 2 diabetes mellitus acute July 06 025 12:15am Hypertensive emergency acute Au kaylee 2024 12:15am Ischemic cardiomyopathy acute A ugust 2024 12:15am Leukocytosis acute July 06, 2025 12:15am Obesity (BMI 30-39.9) acute Aug ust 2024 12:15am Parotitis acute July 06, 025 12:15am [facility] Work Phone: 1(276) 614-660808-18-2025 Discharge summary Author Brennon Mckeon [facility] Note Date/Time July 05, 2025 11 :45pm [facility] Medical Records Department [address] [place] [address] Emergency Department Summary 07/05/25 MR#: [id number] Acct: [id number] Name: LTAONYA ELDER Rep #:[id number] : 1970 54 From: Brennon Santana PCP: Dr. Beka Bowie MD Status:R EG ER Location: ED HPI History of Present Illness Chief Complaint: Chest Pain Informant: patient Onset/Context/Timing Onset: Today (Approximately 20 minutes prior to arrival) Activity at onset: sudden Timing: Continuous Quality: Positive for Tightness and - (Cramping) Location: Substernal Worsened By: Nothing Relieved By: Nothing Associated Symptoms: Positive for Nausea, Vomiting, Diaphoresis, Dyspnea and Palpitations; Negative for Cough, Fever, Lightheadedness or Acid Reflux Narrative Narrative: Patient presents with chest pain that began approximately 15 to 20 minutes priorto arrival. Patient states it began rather suddenly. Patient describes it as tightness. Patient states it is constant. Patient also states it feels like there is some cramping in his chest. Patient states it is over the substernal area. Patient states nothing makes it better and nothing makes it worse. Patient admits to some shortness of breath and diaphoresis. Patient also admitsto some nausea and vomiting. Patient admits to some palpitations. Patient denies any cough or fevers. CVD Risk Factors: Positive for Hypertension, Diabetes, Family History 1' </=55 and Smoking; Negative for Hypercholesterolemia PE Risk Factors: Positive for Prior DVT or PE; Negative for Recent Travel/Surgery, Recent Immobilization, Cancer or OCP + Smoking + >/=35 PFSH PFSH Medical History CVA (cerebral vascular accident) Obesity (BMI 30-39.9) Vitamin D deficiency History of DVT (deep vein thrombosis) Respiratory [...] elevation myocardial infarction (NSTEMI) (11/22/20) Atherosclerosis of [place] coronary artery of [place] heart without angina pectoris Non-ST elevation [place] (NSTEMI) Home Medications ?Medication ?Instructions ?Recorded ?Last Taken ?Type aspirin 81 mg chewable tablet 81 mg PO DAILY heart hea lth 04/27/22 02/10/25 History loratadine 10 mg tablet 10 mg PO DAILY PRN allergies 06/26/22 Unknown History insulin degludec 200 unit/mL (3 50 unit (0.25 mL) subc ut QHS blood 12/28/23 02/09/25 Rx mL) subcutaneous pen (Tresiba sugar 3 months #22.5 mL FlexTouch U-200 insulin) carvedilol 25 mg tablet 25 mg PO BID heart [facility] #180 10/27/24 02/10/25 Rx tabs clonidine HCl [...] History subcutaneous pen (Humalog KwikPen (U-100) Insulin) albuterol sulfate 90 mcg/actuation 2 puff inhalation 4 X/DAY PRN 02/11/25 Unknown Rx aerosol inhaler Shortness Of Breath #8.5 gra ms atorvastatin 80 mg tablet 80 mg PO QHS cholesterol #90 tabs 02/11/25 Unknown Rx amlodipine 10 mg tablet 10 mg PO DAILY blood pressur e #90 02/12/25 Unknown Rx tabs clopidogrel 75 mg tablet (Plavix) 75 mg PO DAILY anti platelet #90 02/12/25 Unknown Rx tabs isosorbide mononitrate 60 mg 60 mg PO BID heart #180 T ABLETS 02/12/25 Unknown Rx tablet,extended release 24 hr ranolazine 1,000 mg 1,000 mg PO BID heart #60 ta bs 02/12/25 Unknown Rx tablet,extended release,12 hr nitroglycerin 0.4 mg sublingual 0.4 mg sublingual Q5-1 5M chest 06/01/25 Unknown Rx tablet pain #25 tabs lisinopril 20 mg tablet 20 mg PO BID blood pressure 07/05/25 Unknown History Allergy/AdvReac Type Severity Reaction Status Date / Time amoxicillin trihydrate (From Allergy Rash Verified 07/05/25 20:31 Augmentin) potassium clavulanate (From Allergy Rash Verified 07/05/25 20:31 Augmentin) ticagrelor (From Brilinta) Allergy Shortness Verified 07/05/25 20:31 of breath codeine AdvReac Nausea Verified 07/05/25 20:31 Family History Sister Myocardial infarction, Onset Age: [...] you participate in: none ROS ROS ED Constitutional Constitutional ED: Denies chills or fever(s) Eyes Eyes: Denies blurry vision or change in vision ENT ENT ED: Denies rhinorrhea or sore throat Cardiovascular Cardiovascular: Reports chest pain; Denies palpitations Respiratory/Chest Respiratory/Chest: Denies cough or dyspnea Gastrointestinal Gastrointestinal: Denies nausea or vomiting Genitourinary Genitourinary ED: Denies dysuria or hematuria Musculoskeletal Musculoskeletal: Reports neck pain; Denies back pain Integumentary Denies abscess or rash Neurologic Neurologic: Reports headache(s); Denies weakness Allergic/Immunologic Allergic/Immunologic ED: Denies mouth swelling or urticaria EXAM Physical Exam Const Vital Signs: 07/05/25 20:31 07/05/25 20:44 07/05/25 21:00 Temperature 98 F Temperature Source Oral Pulse Rate 114 H 97 Respiratory Rate 22 H Blood Pressure 237/126 H 193/110 H Blood Pressure Mean 163 Pulse Ox 98 Oxygen Delivery Method Nasal Cannula 07/05/25 21:05 07/05/25 21:30 07/05/25 22:00 Temperature Temperature Source Pulse Rate 101 H 95 86 Respiratory Rate 29 H 27 H Blood Pressure 173/106 H 182/114 H 191/111 H Blood Pressure Mean 136 137 Pulse Ox 95 92 Oxygen Delivery Method Room Air Room Air Positive well nourished and well developed General Appearance ED: well developed and NAD HEENT Reports moist mucous membranes Neck supple and no JVD Chest Wall palpation of chest normal Resp normal respiratory effort and clear to auscultation bilaterally Cardio regular rate and regular rhythm GI soft to palpation, non-tender and non-distended Extremity normal to inspection General Extremety ED: Negative for edema or tenderness General Extremity: Negative for edema Neuro oriented x3, CN's II-XII intact bilaterally and no sensory deficits noted Sensorium / Orientation: awake and alert Motor Exam: strength 5/5 throughout Psych mental status grossly normal Mood & Affect: anxious Heart Score History: Slightly/Non-Suspicious ECG: Nonspecific Repolarization Age: >45 - <65 years Risk Factors: >/= 3 Risk Factors or History of CAD Troponin: >1 - <3 Normal Limit Score: 5 MDM MDM MDM Narrative Medical decision making narrative: Differential diagnosis includes cardiac dysrhythmia, cardiac ischemia, pneumonia, bronchitis, electrolyte abnormality, gastroesophageal reflux disease,and anxiety. EKG will be obtained to assess for cardiac dysrhythmia and cardiacischemia. Chest x- ray will be obtained to assess for pneumonia or bronchitis. CBC will be obtained to assess for leukocytosis and anemia. Basic metabolic profile will be obtained to assess for electrolyte abnormality and renal function. High-sensitivity troponin will be obtained to assess for cardiac ischemia. 2-hour repeat high-sensitivity troponin will be obtained to assess for ongoing cardiac ischemia. History & Record Review Additional record(s) reviewed:: Prior outpatient record and Prior labs Lab Data Attestation: I reviewed the patient's lab results. Lab results narrative: CBC was reviewed. There is a mild leukocytosis of 14.2. The remainder is within normal limits. Basic metabolic profile was reviewed and showed an elevated glucose at 315. The remainder is within normal limits. Initial high-sensitivity troponin was reviewed and was normal at 18. 2-hour repeat high-sensitivity troponin was reviewed and was elevated at 27. Labs: Laboratory Results - last 24 hr 07/05/25 07/05/25 20:35 22:32 WBC 14.2 H RBC 5.40 Hgb 16.1 Hct 45.7 MCV 84.6 MCH 29.8 MCHC 35.2 RDW Std Deviation 40.7 RDW Coeff of Narcisa 13.2 Plt Count 267 MPV 10.5 Immature Gran % (Auto) 0.400 Neut % (Auto) 55.7 Lymph % (Auto) 31.6 Randall % (Auto) 10.1 H Eos % (Auto) 1.6 Baso % (Auto) 0.6 Absolute Neuts (auto) 7.9 H Absolute Lymphs (auto) 4.50 Nucleated RBC % 0 Platelet Estimate ADEQUATE RBC Morphology NORM C+C Sodium 139 Potassium 3.5 Chloride 101 Carbon Dioxide 22.7 Anion Gap 16 H BUN 14 Creatinine 0.93 Estim Creat Clear Calc 108.20 Est GFR (MDRD) Non-Af 99 BUN/Creatinine Ratio 15.6 Glucose 315 H Calcium 10.0 Troponin T High Sens 18 D Troponin T Hi Sens 2 Hr 27 H Radiography Chest X-Ray - ED: 1 View, Read by ED Physician, Read by Radiologist, No Acute Disease and Cardiomegaly Diagnostic Testing: Clinical Impression(s) from Imaging Studies Chest X-Ray 07/05/25 20:58 IMPRESSION: Stable mild cardiomegaly with slightly decreased pulmonary vascular congestion. Reading Location: [facility] Portable 1 view chest x-ray was obtained. On my independent interpretation, lung moore are clear. There is cardiomegaly. Bony thorax is normal. There isno acute process noted. Radiologist also interpreted the x-ray and agrees. EKG Initial EKG: Attestation: I personally reviewed and interpreted this EKG as follows: Interpretation: Sinus Tachycardia (104) and Non-Specific ST Changes Comments: EKG was obtained. On my independent interpretation, it showed asinus tachycardia with a rate of 104. SD interval, QRS interval, and QTc intervals were all normal. There is left axis deviation at -28. There are nonspecific ST-T wave changes. Prior EKG tracings: available for review Prior: Unchanged Management Discussion w/another healthcare provider: Hospitalist Treatment and Re-Evaluation :: Patient was given aspirin and sublingual nitroglycerin here. Patient was given injection of morphine. Patient was given a dose of hydralazine for his blood pressure. Patient was advised of his findings. Patient has a HEART score of 5. Due to the increased delta troponin of 9, I recommended admission to the hospital. Patient is agreeable with this. Case was discussed with the hospitalist. He will admit the patient to PCU. Patient understood and was agreeable with the plan. All questions were answered. Discharge Plan Triage Chief Complaint: Chest Pain ED Provider: Brennon Mckeon Dx/Rx/DC Orders Clinical Impression: Chest pain, Ischemic cardiomyopathy, Essential hypertension, Diabetes Prescriptions: No Action insulin degludec [Tresiba FlexTouch U-200] 200 unit/mL (3 mL) insulin pen 50 unit SUBCUT QHS 90 Days Qty: 22.5 1RF aspirin 81 MG tablet,chewable 81 mg PO DAILY loratadine 10 mg tablet 10 mg PO DAILY PRN (Reason: allergies) lisinopril 20 mg tablet 20 mg PO BID insulin lispro [Humalog KwikPen Insulin] 100 unit/mL Insulin Pen 20 unit subcut TIDAC PRN (Reason: DIABETES) guaifenesin [Mucus Relief ER] 1,200 mg Tablet Extended Release 12hr 600 mg PO BID albuterol sulfate 90 mcg/actuation HFA aerosol inhaler 2 puff INHALATION 4X/DAY PRN (Reason: Shortness Of Breath) Qty: 8.5 0RF carvedilol 25 mg tablet 25 mg PO BIDCM Qty: 180 3RF clonidine HCl 0.1 mg tablet 0.1 mg PO BID Qty: 180 3RF furosemide [Lasix] 20 mg tablet 60 mg PO DAILY Qty: 270 3RF atorvastatin 80 mg tablet 80 mg PO QHS Qty: 90 0RF ranolazine 1,000 mg tablet extended release 12 hr 1,000 mg PO BID Qty: 60 11RF isosorbide mononitrate 60 mg tablet extended release 24 hr 60 mg PO BID Qty: 180 3RF clopidogrel [Plavix] 75 mg tablet 75 mg PO DAILY Qty: 90 3RF amlodipine 10 mg tablet 10 mg PO DAILY Qty: 90 3RF nitroglycerin 0.4 mg tablet, sublingual 0.4 mg sublingual Q5-15M Qty: 25 3RF Primary Care Provider: Beka Bowie Referrals: Beka Bowie MD [Primary Care Provider] - Print Language: Scottish Disposition Disposition: Acute Care Hospital [facility] What to do if you have Problems For any increased pain, shortness of breath, bleeding, nausea or vomiting, chestpain, or any unexpected problems, contact your Primary Care Provider. Call [facility] ([phone]) or report to the closest Emergency Room. Call 911 if necessary. 07/05/25 1393 <Electronically signed by Brennon Mckeon DO> Cosigner Signature (if applicable): CC: Dr. Beka Bowie MD ~ Signed [facility] Work Phone: [phone]) 274-300308-17-[address] [facility] Medical Records Department [address] [place] [address] Emergency Department Summary 07/05/25 MR#: [id number] Acct: [id number] Name: LATONYA ELDER Rep #:[id number] : 1970 54 From: Brennon Santana PCP: Dr. Beka Bowie MD Status:R EG ER Location: ED HPI History of Present Illness Chief Complaint: Chest Pain Informant: patient Onset/Context/Timing Onset: Today (Approximately 20 minutes prior to arrival) Activity at onset: sudden Timing: Continuous Quality: Positive for Tightness and - (Cramping) Location: Substernal Worsened By: Nothing Relieved By: Nothing Associated Symptoms: Positive for Nausea, Vomiting, Diaphoresis, Dyspnea and Palpitations; Negativefor Cough, Fever, Lightheadedness or Acid Reflux Narrative Narrative: Patient presents with chest pain that began approximately 15 to 20 minutes priorto arrival. Patientstates it began rather suddenly. Patient describes it as tightness. Patient states it is constant. Patient also states it feels like there is some cramping in his chest. Patient states it is over thesubsternal area. Patient states nothing makes it better and nothing makes it worse. Patient admits to some shortness of breath and diaphoresis. Patient also admitsto some nausea and vomiting. Patientadmits to some palpitations. Patient denies any cough or fevers. CVD Risk Factors: Positive for Hypertension, Diabetes, Family History 1' PE Risk Factors: Positive for Prior DVT or PE; Negative for Recent Travel/Surgery, Recent Immobilization, Cancer or OCP + Smoking + >/=35 PFSH PFSH Medical History CVA (cerebral vascular accident) Obesity (BMI 30-39.9) Vitamin D deficiency History of DVT (deep vein thrombosis) Respiratory [...] elevation myocardial infarction (NSTEMI) (11/22/20) Atherosclerosis of [place] coronary artery of [place] heart without angina pectoris Non-ST elevation NH (NSTEMI) Home Medications ?Medication ?Instructions ?Recorded ?Last Taken ?Type aspirin 81 mg chewable tablet 81 mg PO DAILY heart hea lth 04/27/22 02/10/25 History loratadine 10 mg tablet 10 mg PO DAILY PRN allergies 06/26/22 Unknown History insulin degludec 200 unit/mL (3 50 unit (0.25 mL) subc ut QHS blood 12/28/23 02/09/25 Rx mL) subcutaneous pen (Tresiba sugar 3 months #22.5 mL FlexTouch U-200 insulin) carvedilol 25 mg tablet 25 mg PO BID [facility] #180 10/27/24 02/10/25 Rx tabs clonidine HCl [...] History subcutaneous pen (Humalog KwikPen (U-100) Insulin) albuterol sulfate 90 mcg/actuation 2 puff inhalation 4 X/DAY PRN 02/11/25 Unknown Rx aerosol inhaler Shortness Of Breath #8.5 gra ms atorvastatin 80 mg tablet 80 mg PO QHS cholesterol #90 tabs 02/11/25 Unknown Rx amlodipine 10 mg tablet 10 mg PO DAILY blood pressur e #90 02/12/25 Unknown Rx tabs clopidogrel 75 mg tablet (Plavix) 75 mg PO DAILY anti platelet #90 02/12/25 Unknown Rx tabs isosorbide mononitrate 60 mg 60 mg PO BID heart #180 T ABLETS 02/12/25 Unknown Rx tablet,extended release 24 hr ranolazine 1,000 mg 1,000 mg PO BID heart #60 ta bs 02/12/25 Unknown Rx tablet,extended release,12 hr nitroglycerin 0.4 mg sublingual 0.4 mg sublingual Q5-1 5M chest 06/01/25 Unknown Rx tablet pain #25 tabs lisinopril 20 mg tablet 20 mg PO BID blood pressure 07/05/25 Unknown History Allergy/AdvReac Type Severity Reaction Status Date / Time amoxicillin trihydrate (From Allergy Rash Verified 07/05/25 20:31 Augmentin) potassium clavulanate (From Allergy Rash Verified 07/05/25 20:31 Augmentin) ticagrelor (From Brilinta) Allergy Shortness Verified 07/05/25 20:31 of breath codeine AdvReac Nausea Verified 07/05/25 20:31 Family History Sister Myocardial infarction, Onset Age: [...] you participate in: none ROS ROS ED Constitutional Constitutional ED: Denies chills or fever(s) Eyes Eyes: Denies blurry vision or change in vision ENT ENT ED: Denies rhinorrhea or sore throat Cardiovascular Cardiovascular: Reports chest pain; Denies palpitations Respiratory/Chest Respiratory/Chest: Denies cough or dyspnea Gastrointestinal Gastrointestinal: Denies nausea or vomiting Genitourinary Genitourinary ED: Denies dysuria or hematuria Musculoskeletal Musculoskeletal: Reports neck pain; Denies back pain Integumentary Denies abscess or rash Neurologic Neurologic: Reports headache(s); Denies weakness Allergic/Immunologic Allergic/Immunologic ED: Denies mouth swelling or urticaria EXAM Physical Exam Const Vital Signs: 07/05/25 20:31 07/05/25 20:44 07/05/25 21:00 Temperature 98 F Temperature Source Oral Pulse Rate 114 H 97 Respiratory Rate 22 H Blood Pressure 237/126 H 193/110 H Blood Pressure Mean 163 Pulse Ox 98 Oxygen Delivery Method Nasal Cannula 07/05/25 21:05 07/05/25 21:30 07/05/25 22:00 Temperature Temperature Source Pulse Rate 101 H 95 86 Respiratory Rate 29 H 27 H Blood Pressure 173/106 H 182/114 H 191/111 H Blood Pressure Mean 136 137 Pulse Ox 95 92 Oxygen Delivery Method Room Air Room Air Positive well nourished and well developed General Appearance ED: well developed and NAD HEENT Reports moist mucous membranes Neck supple and no JVD Chest Wall palpation of chest normal Resp normal respiratory effort and clear to auscultation bilaterally Cardio regular rate and regular rhythm GI soft to palpation, non-tender and non-distended Extremity normal to inspection General Extremety ED: Negative for edema or tenderness General Extremity: Negative for edema Neuro oriented x3, CN's II-XII intact bilaterally and no sensory deficits noted Sensorium / Orientation: awake and alert Motor Exam: strength 5/5 throughout Psych mental status grossly normal Mood & Affect: anxious Heart Score History: Slightly/Non-Suspicious ECG: Nonspecific Repolarization Age: >45 - <65 years Risk Factors: >/= 3 Risk Factors or History of CAD Troponin: >1 - <3 Normal Limit Score: 5 MDM MDM MDM Narrative Medical decision making narrative: Differential diagnosis includes cardiac dysrhythmia, cardiac ischemia, pneumonia, bronchitis, electrolyte abnormality, gastroesophageal reflux disease,and anxiety. EKG will be obtained to assess for cardiac dysrhythmia and cardiacischemia. Chest x-ray will be obtained to assess for pneumonia or bron chitis. CBC will be obtained to assess for leukocytosis and anemia. Basic metabolic profile will beobtained to assess for electrolyte abnormality and renal function. High-sensitivity troponin will be obtained to assess for cardiac ischemia. 2-hour repeat high-sensitivity troponin will be obtained to assess for ongoing cardiac ischemia. History & Record Review Additional record(s) reviewed:: Prior outpatient record and Prior labs Lab Data Attestation: I reviewed the patient's lab results. Lab results narrative: CBC was reviewed. There is a mild leukocytosis of 14.2. The remainder is within normal limits. Basic metabolic profile was reviewed and showed an elevated glucose at 315. The remainder is within normal limits. Initial high-sensitivity troponin was reviewed and was normal at 18. 2-hour repeat high-sensitivity troponin was reviewed and was elevated at 27. Labs: Laboratory Results - last 24 hr 07/05/25 07/05/25 20:35 22:32 WBC 14.2 H RBC 5.40 Hgb 16.1 Hct 45.7 MCV 84.6 MCH 29.8 MCHC 35.2 RDW Std Deviation 40.7 RDW Coeff of Narcisa 13.2 Plt Count 267 MPV 10.5 Immature Gran % (Auto) 0.400 Neut % (Auto) 55.7 Lymph % (Auto) 31.6 Randall % (Auto) 10.1 H Eos % (Auto) 1.6 Baso % (Auto) 0.6 Absolute Neuts (auto) 7.9 H Absolute Lymphs (auto) 4.50 Nucleated RBC % 0 Platelet Estimate ADEQUATE RBC Morphology NORM C+C Sodium 139 Potassium 3.5 Chloride 101 Carbon Dioxide 22.7 Anion Gap 16 H BUN 14 Creatinine 0.93 Estim Creat Clear Calc 108.20 Est GFR (MDRD) Non-Af 99 BUN/Creatinine Ratio 15.6 Glucose 315 H Calcium 10.0 Troponin T High Sens 18 D Troponin T Hi Sens 2 Hr 27 H Radiography Chest X-Ray - ED: 1 View, Read by ED Physician, Read by Radiologist, No Acute Disease and Cardiomegaly Diagnostic Testing: Clinical Impression(s) from Imaging Studies Chest X-Ray 07/05/25 20:58 IMPRESSION: Stable mild cardiomegaly with slightly decreased pulmonary vascular congestion. Reading Location: [facility] Portable 1 view chest x-ray was obtained. On my independent interpretation, lung moore are clear. There is cardiomegaly. Bony thorax is normal. There isno acute process noted. Radiologist also interpreted the x-ray and agrees. EKG Initial EKG: Attestation: I personally reviewed and interpreted this EKG as follows: Interpretation: Sinus Tachycardia (104) and Non-Specific ST Changes Comments: EKG was obtained. On my independent interpretation, it showed asinus tachycardia with a rate of 104. SD interval, QRS interval, and QTc intervals were all normal. There is left axis deviation at -28. There are nonspecific ST-T wave changes. Prior EKG tracings: available for review Prior: Unchanged Management Discussion w/another healthcare provider: Hospitalist Treatment and Re-Evaluation :: Patient was given aspirin and sublingual nitroglycerin here. Patient was given injection of morphine. Patient was given a dose of hydralazine for his blood pressure. Patient was advised of his findings. Patient has a HEART score of 5. Due to the increased delta troponin of 9, I recommended admission to the hospital. Patient is agreeable with this. Case was discussed with the hospitalist. He will admit the patient to PCU. Patient understood and was agreeable with the plan. All questions were answered. Discharge Plan Triage Chief Complaint: Chest Pain ED Provider: Brennon Mckeon Dx/Rx/DC Orders Clinical Impression: Chest pain, Ischemic cardiomyopathy, Essential hypertension, Diabetes Prescriptions: No Action insulin degludec [Tresiba FlexTouch U-200] 200 unit/mL (3 mL) insulin pen 50 unit SUBCUT QHS 90 Days Qty: 22.5 1RF aspirin 81 MG tablet,chewable 81 mg PO DAILY loratadine 10 mg tablet 10 mg PO DAILY PRN (Reason: allergies) lisinopril 20 mg tablet 20 mg PO BID insulin lispro [Humalog KwikPen Insulin] 100 unit/mL Insulin Pen 20 unit subcut TIDAC PRN (Reason: DIABETES) guaifenesin [Mucus Relief ER] 1,200 mg Tablet Extended Release 12hr 600 mg PO BID albuterol sulfate 90 mcg/actuation HFA aerosol inhaler 2 puff INHALATION 4X/DAY PRN (Reason: Shortness Of Breath) Qty: 8.5 0RF carvedilol 25 mg tablet 25 mg PO BIDCM Qty: 180 3RF clonidine HCl 0.1 mg tablet 0.1 mg PO BID Qty: 180 3RF furosemide [Lasix] 20 mg tablet 60 mg PO DAILY Qty: 270 3RF atorvastatin 80 mg tablet 80 mg PO QHS Qty: 90 0RF ranolazine 1,000 mg tablet extended release 12 hr 1,000 mg PO BID Qty: 60 11RF isosorbide mononitrate 60 mg tablet extended release 24 hr 60 mg PO BID Qty: 180 3RF clopidogrel [Plavix] 75 mg tablet 75 mg PO DAILY Qty: 90 3RF amlodipine 10 mg tablet 10 mg PO DAILY Qty: 90 3RF nitroglycerin 0.4 mg tablet, sublingual 0.4 mg sublingual Q5-15M Qty: 25 3RF Primary Care Provider: Beka Bowie Referrals: Beka Bowie MD [Primary Care Provider] - Print Language: Scottish Disposition Disposition: Acute Care Hospital [facility] What to do if you have Problems For any increased pain, shortness of breath, bleeding, nausea or vomiting, chestpain, or any unexpected problems, contact your Primary Care Provider. Call [facility] ([phone]) or report tothe closest Emergency Room. Call 911 if necessary. 07/05/25 2345 Cosigner Signature (if applicable): CC: Dr. Beka Bowie MD ~ Signed [facility]08-17-2025 Radiology Diagnostic study note [facility] Imaging Services [address] [place] [address] Chest 1 View (Portable) MR#: [id number] Acct: [id number] Name: LATONYA ELDER Rep #: [id number] : 1970 M 54 From: Donte Tran MD PCP: Dr. Beka Bowie MD Status: R EG ER Study:Chest 1 View (Portable) Date of Exam: 07/05/25 Exam# [id number] Ordering Dr: Brennon Mckeon DO PROCEDURE: CHEST 1 VIEW (PORTABLE) 07/05/2025 REASON FOR EXAM: CHEST PAIN TECHNIQUE: Frontal view of the chest. COMPARISON: 02/10/2025 FINDINGS: Hardware: None. Heart: Heart size is mildly enlarged. Lungs: Slight interval decrease in the diffuse pulmonary vascular congestion. No pneumothorax or sizable pleural effusion. Bones: The bones are unremarkable. RAD/Chest 1 View (Portable) IMPRESSION: Stable mild cardiomegaly with slightly decreased pulmonary vascular congestion. Reading Location: [facility] CC: Dr. Beka Bowie MD; Dr. Brennon Mckeon DO ~ Public Health Dietitian: Signed [facility]08-17-2025 Discharge summary Author Brennon Mckeon [facility] Note Date/Time July 05, 2025 11 :45pm [facility] Medical Records Department [address] [place] [address] Emergency Department Summary 07/05/25 MR#: [id number] Acct: [id number] Name: LATONYA ELDER Rep #:[id number] : 1970 54 From: Brennon Santana PCP: Dr. Beka Bowie MD Status:R EG ER Location: ED HPI History of Present Illness Chief Complaint: Chest Pain Informant: patient Onset/Context/Timing Onset: Today (Approximately 20 minutes prior to arrival) Activity at onset: sudden Timing: Continuous Quality: Positive for Tightness and - (Cramping) Location: Substernal Worsened By: Nothing Relieved By: Nothing Associated Symptoms: Positive for Nausea, Vomiting, Diaphoresis, Dyspnea and Palpitations; Negative for Cough, Fever, Lightheadedness or Acid Reflux Narrative Narrative: Patient presents with chest pain that began approximately 15 to 20 minutes priorto arrival. Patient states it began rather suddenly. Patient describes it as tightness. Patient states it is constant. Patient also states it feels like there is some cramping in his chest. Patient states it is over the substernal area. Patient states nothing makes it better and nothing makes it worse. Patient admits to some shortness of breath and diaphoresis. Patient also admitsto some nausea and vomiting. Patient admits to some palpitations. Patient denies any cough or fevers. CVD Risk Factors: Positive for Hypertension, Diabetes, Family History 1' </=55 and Smoking; Negative for Hypercholesterolemia PE Risk Factors: Positive for Prior DVT or PE; Negative for Recent Travel/Surgery, Recent Immobilization, Cancer or OCP + Smoking + >/=35 [facility] Medical History CVA (cerebral vascular accident) Obesity (BMI 30-39.9) Vitamin D deficiency History of DVT (deep vein thrombosis) Respiratory [...] elevation myocardial infarction (NSTEMI) (11/22/20) Atherosclerosis of [place] coronary artery of [place] heart without angina pectoris Non-ST elevation [place] (NSTEMI) Home Medications ?Medication ?Instructions ?Recorded ?Last Taken ?Type aspirin 81 mg chewable tablet 81 mg PO DAILY heart hea lth 04/27/22 02/10/25 History loratadine 10 mg tablet 10 mg PO DAILY PRN allergies 06/26/22 Unknown History insulin degludec 200 unit/mL (3 50 unit (0.25 mL) subc ut QHS blood 12/28/23 02/09/25 Rx mL) subcutaneous pen (Tresiba sugar 3 months #22.5 mL FlexTouch U-200 insulin) carvedilol 25 mg tablet 25 mg PO [...] History subcutaneous pen (Humalog KwikPen (U-100) Insulin) albuterol sulfate 90 mcg/actuation 2 puff inhalation 4 X/DAY PRN 02/11/25 Unknown Rx aerosol inhaler Shortness Of Breath #8.5 gra ms atorvastatin 80 mg tablet 80 mg PO QHS cholesterol #90 tabs 02/11/25 Unknown Rx amlodipine 10 mg tablet 10 mg PO DAILY blood pressur e #90 02/12/25 Unknown Rx tabs clopidogrel 75 mg tablet (Plavix) 75 mg PO DAILY anti platelet #90 02/12/25 Unknown Rx tabs isosorbide mononitrate 60 mg 60 mg PO BID heart #180 T ABLETS 02/12/25 Unknown Rx tablet,extended release 24 hr ranolazine 1,000 mg 1,000 mg PO BID heart #60 ta bs 02/12/25 Unknown Rx tablet,extended release,12 hr nitroglycerin 0.4 mg sublingual 0.4 mg sublingual Q5-1 5M chest 06/01/25 Unknown Rx tablet pain #25 tabs lisinopril 20 mg tablet 20 mg PO BID blood pressure 07/05/25 Unknown History Allergy/AdvReac Type Severity Reaction Status Date / Time amoxicillin trihydrate (From Allergy Rash Verified 07/05/25 20:31 Augmentin) potassium clavulanate (From Allergy Rash Verified 07/05/25 20:31 Augmentin) ticagrelor (From Brilinta) Allergy Shortness Verified 07/05/25 20:31 of breath codeine AdvReac Nausea Verified 07/05/25 20:31 Family History Sister Myocardial infarction, Onset Age: [...] you participate in: none ROS ROS ED Constitutional Constitutional ED: Denies chills or fever(s) Eyes Eyes: Denies blurry vision or change in vision ENT ENT ED: Denies rhinorrhea or sore throat Cardiovascular Cardiovascular: Reports chest pain; Denies palpitations Respiratory/Chest Respiratory/Chest: Denies cough or dyspnea Gastrointestinal Gastrointestinal: Denies nausea or vomiting Genitourinary Genitourinary ED: Denies dysuria or hematuria Musculoskeletal Musculoskeletal: Reports neck pain; Denies back pain Integumentary Denies abscess or rash Neurologic Neurologic: Reports headache(s); Denies weakness Allergic/Immunologic Allergic/Immunologic ED: Denies mouth swelling or urticaria EXAM Physical Exam Const Vital Signs: 07/05/25 20:31 07/05/25 20:44 07/05/25 21:00 Temperature 98 F Temperature Source Oral Pulse Rate 114 H 97 Respiratory Rate 22 H Blood Pressure 237/126 H 193/110 H Blood Pressure Mean 163 Pulse Ox 98 Oxygen Delivery Method Nasal Cannula 07/05/25 21:05 07/05/25 21:30 07/05/25 22:00 Temperature Temperature Source Pulse Rate 101 H 95 86 Respiratory Rate 29 H 27 H Blood Pressure 173/106 H 182/114 H 191/111 H Blood Pressure Mean 136 137 Pulse Ox 95 92 Oxygen Delivery Method Room Air Room Air Positive well nourished and well developed General Appearance ED: well developed and NAD HEENT Reports moist mucous membranes Neck supple and no JVD Chest Wall palpation of chest normal Resp normal respiratory effort and clear to auscultation bilaterally Cardio regular rate and regular rhythm GI soft to palpation, non-tender and non-distended Extremity normal to inspection General Extremety ED: Negative for edema or tenderness General Extremity: Negative for edema Neuro oriented x3, CN's II-XII intact bilaterally and no sensory deficits noted Sensorium / Orientation: awake and alert Motor Exam: strength 5/5 throughout Psych mental status grossly normal Mood & Affect: anxious Heart Score History: Slightly/Non-Suspicious ECG: Nonspecific Repolarization Age: >45 - <65 years Risk Factors: >/= 3 Risk Factors or History of CAD Troponin: >1 - <3 Normal Limit Score: 5 MDM MDM MDM Narrative Medical decision making narrative: Differential diagnosis includes cardiac dysrhythmia, cardiac ischemia, pneumonia, bronchitis, electrolyte abnormality, gastroesophageal reflux disease,and anxiety. EKG will be obtained to assess for cardiac dysrhythmia and cardiacischemia. Chest x- ray will be obtained to assess for pneumonia or bronchitis. CBC will be obtained to assess for leukocytosis and anemia. Basic metabolic profile will be obtained to assess for electrolyte abnormality and renal function. High-sensitivity troponin will be obtained to assess for cardiac ischemia. 2-hour repeat high-sensitivity troponin will be obtained to assess for ongoing cardiac ischemia. History & Record Review Additional record(s) reviewed:: Prior outpatient record and Prior labs Lab Data Attestation: I reviewed the patient's lab results. Lab results narrative: CBC was reviewed. There is a mild leukocytosis of 14.2. The remainder is within normal limits. Basic metabolic profile was reviewed and showed an elevated glucose at 315. The remainder is within normal limits. Initial high-sensitivity troponin was reviewed and was normal at 18. 2-hour repeat high-sensitivity troponin was reviewed and was elevated at 27. Labs: Laboratory Results - last 24 hr 07/05/25 07/05/25 20:35 22:32 WBC 14.2 H RBC 5.40 Hgb 16.1 Hct 45.7 MCV 84.6 MCH 29.8 MCHC 35.2 RDW Std Deviation 40.7 RDW Coeff of Narcisa 13.2 Plt Count 267 MPV 10.5 Immature Gran % (Auto) 0.400 Neut % (Auto) 55.7 Lymph % (Auto) 31.6 Randall % (Auto) 10.1 H Eos % (Auto) 1.6 Baso % (Auto) 0.6 Absolute Neuts (auto) 7.9 H Absolute Lymphs (auto) 4.50 Nucleated RBC % 0 Platelet Estimate ADEQUATE RBC Morphology NORM C+C Sodium 139 Potassium 3.5 Chloride 101 Carbon Dioxide 22.7 Anion Gap 16 H BUN 14 Creatinine 0.93 Estim Creat Clear Calc 108.20 Est GFR (MDRD) Non-Af 99 BUN/Creatinine Ratio 15.6 Glucose 315 H Calcium 10.0 Troponin T High Sens 18 D Troponin T Hi Sens 2 Hr 27 H Radiography Chest X-Ray - ED: 1 View, Read by ED Physician, Read by Radiologist, No Acute Disease and Cardiomegaly Diagnostic Testing: Clinical Impression(s) from Imaging Studies Chest X-Ray 07/05/25 20:58 IMPRESSION: Stable mild cardiomegaly with slightly decreased pulmonary vascular congestion. Reading Location: [facility] Portable 1 view chest x-ray was obtained. On my independent interpretation, lung moore are clear. There is cardiomegaly. Bony thorax is normal. There isno acute process noted. Radiologist also interpreted the x-ray and agrees. EKG Initial EKG: Attestation: I personally reviewed and interpreted this EKG as follows: Interpretation: Sinus Tachycardia (104) and Non-Specific ST Changes Comments: EKG was obtained. On my independent interpretation, it showed asinus tachycardia with a rate of 104. SD interval, QRS interval, and QTc intervals were all normal. There is left axis deviation at -28. There are nonspecific ST-T wave changes. Prior EKG tracings: available for review Prior: Unchanged Management Discussion w/another healthcare provider: Hospitalist Treatment and Re-Evaluation :: Patient was given aspirin and sublingual nitroglycerin here. Patient was given injection of morphine. Patient was given a dose of hydralazine for his blood pressure. Patient was advised of his findings. Patient has a HEART score of 5. Due to the increased delta troponin of 9, I recommended admission to the hospital. Patient is agreeable with this. Case was discussed with the hospitalist. He will admit the patient to PCU. Patient understood and was agreeable with the plan. All questions were answered. Discharge Plan Triage Chief Complaint: Chest Pain ED Provider: Brennon Mckeon Dx/Rx/DC Orders Clinical Impression: Chest pain, Ischemic cardiomyopathy, Essential hypertension, Diabetes Prescriptions: No Action insulin degludec [Tresiba FlexTouch U-200] 200 unit/mL (3 mL) insulin pen 50 unit SUBCUT QHS 90 Days Qty: 22.5 1RF aspirin 81 MG tablet,chewable 81 mg PO DAILY loratadine 10 mg tablet 10 mg PO DAILY PRN (Reason: allergies) lisinopril 20 mg tablet 20 mg PO BID insulin lispro [Humalog KwikPen Insulin] 100 unit/mL Insulin Pen 20 unit subcut TIDAC PRN (Reason: DIABETES) guaifenesin [Mucus Relief ER] 1,200 mg Tablet Extended Release 12hr 600 mg PO BID albuterol sulfate 90 mcg/actuation HFA aerosol inhaler 2 puff INHALATION 4X/DAY PRN (Reason: Shortness Of Breath) Qty: 8.5 0RF carvedilol 25 mg tablet 25 mg PO BIDCM Qty: 180 3RF clonidine HCl 0.1 mg tablet 0.1 mg PO BID Qty: 180 3RF furosemide [Lasix] 20 mg tablet 60 mg PO DAILY Qty: 270 3RF atorvastatin 80 mg tablet 80 mg PO QHS Qty: 90 0RF ranolazine 1,000 mg tablet extended release 12 hr 1,000 mg PO BID Qty: 60 11RF isosorbide mononitrate 60 mg tablet extended release 24 hr 60 mg PO BID Qty: 180 3RF clopidogrel [Plavix] 75 mg tablet 75 mg PO DAILY Qty: 90 3RF amlodipine 10 mg tablet 10 mg PO DAILY Qty: 90 3RF nitroglycerin 0.4 mg tablet, sublingual 0.4 mg sublingual Q5-15M Qty: 25 3RF Primary Care Provider: Beka Bowie Referrals: Beka Bowie MD [Primary Care Provider] - Print Language: Scottish Disposition Disposition: Acute Care Hospital [facility] What to do if you have Problems For any increased pain, shortness of breath, bleeding, nausea or vomiting, chestpain, or any unexpected problems, contact your Primary Care Provider. Call [facility] ([phone]) or report to the closest Emergency Room. Call 911 if necessary. 07/05/25 2117 <Electronically signed by Brennon Mckeon DO> Cosigner Signature (if applicable): CC: Dr. Beka Bowie MD ~ Signed [facility] Work Phone: 1(180) 450-565603-26-[address] [facility] Medical Records Department [address] [place] [address] Discharge Summary 02/11/25 1421 MR#: [id number] Acct: [id number] Name: LATONYA ELDER Rep #:[id number] : 1970 54 From: Brennon Juarez DO PCP: Dr. Beka Bowie MD Status:A DM IN Location: ICU CVICU 1-1 Providers Date of Admission: 02/11/25 Primary [...] note (formal note not yet available in [facility]) who advised to give ASA and clopidogrel (clopidogrel not given as pt had already taken it that AM) and to admit to the ICU. Neurology felt the LVO was likely a chronic LVO. Continue ASA, clopidogrel, HIS. No acute indication for transfer per neurology. MRI brain shows an acute infarct. Onset was 3/23 Neurology recommending continuing DAPT, statin. Event monitor. 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 Concerning on his x-rays also for pneumonia so he was treated [...] % (Auto) 61.8, Lymph % (Auto) 25.5, Randall % (Auto) 9.2, Eos % (Auto) 2.4, [...] are new since prior examination. Reading Location: [facility] Brain CT 02/10/25 18:31 IMPRESSION: [...] 8:00 pm with readback verification. Reading Location: [facility] Head/Neck CTA 02/10/25 18:31 IMPRESSION: [...] at 8:50 pm on 02/10/25. Reading Location: [facility] Brain MRI 02/11/25 00:16 IMPRESSION: Acute white matter infarction, with stable size, seen in the area hypodensity noted in the CT of 02/11/2025. Reading Location: [address] Echocardiogram 02/11/25 00:16 Interpretation Summary Normal [...] Neurology has requested an event monitor (a wearableheart monitor) to see if any evidenceof any abnormal heart rhythm such as atrial fibrillation that may warrant changes to your treatment. Please follow-up with neurology at your early convenience. [facility] [phone]. [facility] [place] [phone]. [facility] [place] [phone]. [facility] [phone]. [facility] [phone] Additionally looks like you have a pneumonia so you will be on antibiotics for several more days and I have you on some steroids to help with your COPD. The steroids may cause your blood sugars to betemporally elevated why you are taking them. Discharge [...] Recorder Preventi (Urgent) Timeframe: 1 Day Facility: [facility] - Location: Cardiovascular Services Ordered By: Dr. Brennon Juarez Referrals / Follow Up: Beka Bowie MD [Primary Care Provider] - Within 2 Weeks Disposition Disposition (needs filled in before D/C Order can be placed): Home, Self Care Charges/Coding Visit Charges Inpatient E&M: 31144 Disch Hosp >30min 02/11/25 7153 Cosigner Signature (if applicable): CC: Dr. Beka Bowie MD; Dr. Brennon Juarez DO~ Signed [facility]03-26-2025 [facility] [facility] Medical Records Department [address] [place] [address] Progress Note - Hospitalist 02/11/25 0656 MR#: [id number] Acct: [id number] Name: LATONYA ELDER Rep #:[id number] : 1970 54 From: Brennon Juarez DO PCP: Dr. Beka Bowie MD Status:A DM IN Location: ICU CVICU20 11-19 Reason for Visit Reason for Visit: Diagnoses [...] RDW Std Deviation 42.5, RDW Coeff of Nracisa 13.9, Plt Count 317, MPV 10.6, Immature Gran % (Auto) 0.300, Neut % (Auto) 61.8, Lymph % (Auto) 25.5, Randall % (Auto) 9.2, Eos % (Auto) 2.4, [...] are new since prior examination. Reading Location: [facility] Brain CT 02/10/25 18:31 IMPRESSION: [...] 8:00 pm with readback verification. Reading Location: [facility] Head/Neck CTA 02/10/25 18:31 IMPRESSION: [...] at 8:50 pm on 02/10/25. Reading Location: [facility] Physical Exam Const alert and no [...] note (formal note not yet available in [facility]) who advised to give ASA and [...] presentation of CVA, can resume home medications: [id number], carvedilol 25 BID, clonidine 0.1 BID, furosemide 60 daily, lisinopril 20 BID, isosorbide 60 BID Add PRN hydralazine Continue previous home medications. I had seen the patient on 10/12 for a CLINICAL DATA ASSISTANT for coughing fit then led to a [...] DAPT, atorvastatin. VTE prophylaxis: SCDs 02/11/25 1421 Cosigner Signature (if applicable): CC: ~ Signed [facility]03-26-2025 Progress note Author Brennon Juarez [facility] Note Date/Time February 11, 2025 2:2 1pm [facility] Medical Records Department [address] [place] [address] Progress Note - Hospitalist 02/11/25 0656 MR#: [id number] Acct: [id number] Name: LATONYA ELDER #:[id number] : 1970 54 From: Brennon Juarez DO PCP: Dr. Beka Bowie MD Status:A DM IN Location: ICU CVICU20 1- Reason for Visit Reason for Visit: [...] % (Auto) 61.8, Lymph % (Auto) 25.5, Randall % (Auto) 9.2, Eos % (Auto) 2.4, [...] are new since prior examination. Reading Location: [id number] Brain CT 02/10/25 18:31 IMPRESSION: 1.9 by [...] 8:00 pm with readback verification. Reading Location: [facility] Head/Neck CTA 02/10/25 18:31 IMPRESSION: [...] at 8:50 pm on 02/10/25. Reading Location: [facility] Physical Exam Const alert and no [...] note (formal note not yet available in [facility]) who advised to give ASA and [...] presentation of CVA, can resume home medications: [id number], carvedilol 25 BID, clonidine 0.1 BID, furosemide 60 daily, lisinopril 20 BID, isosorbide 60 BID Add PRN hydralazine Continue previous home medications. I had seen the patient on 10/12 for a CLINICAL DATA ASSISTANT for coughing fit then led to a [...] Cosigner Signature (if applicable): CC: ~ Signed [facility] Work Phone: 1(226) 982-398003-26-2025 History and physical note Author Mitchell Lucero [facility] Note Date/Time February 11, 2025 6:4 2am [facility] Medical Records Department [address] [place] [address] H&P Exam - Hospitalist 02/10/25 2311 MR#: [id number] Acct: [id number] Name: LATONYA ELDER Rep #:[id number] : 1970 54 From: Mitchell Marr DO PCP: Dr. Beka Bowie MD Status:A DM IN Location: ICU CVICU20 1-1 HPI - General General Date of Admission: 02/11/25 Date of Service: 02/10/25 Chief Complaint: Slurred Speech, Brain Fog, Chest Pain and Cough. HPI Mary ELDER, is a 54 M with a [...] troponin and Respiratory Insufficiency who presents to [facility] ER complaining of who presents to [facility] ER complaining of slurred speech and brain fog since Saturday, February 08, 2025. Mr. Elder and his significant other reported that his symptoms have been bcptrq-hfg-gufwmw for the past several days and since [...] is expected to extend beyond 2 midnights. [facility] Medical History History of DVT (deep vein [...] elevation myocardial infarction (NSTEMI) (11/22/20) Atherosclerosis of [place] coronary artery of [place] heart without angina pectoris Non-ST elevation [place] (NSTEMI) Home Medications ?Medication ?Instructions ?Recorded ?Last [...] blood 12/28/23 02/09/25 Rx mL) [facility].5 [facility] FlexTouch U-200 [...] % (Auto) 61.8, Lymph % (Auto) 25.5, Randall % (Auto) 9.2, Eos % (Auto) 2.4, [...] are new since prior examination. Reading Location: [id number] Brain CT 02/10/25 18:31 IMPRESSION: 1.9 by [...] 8:00 pm with readback verification. Reading Location: [id number] Head/Neck CTA 02/10/25 18:31 IMPRESSION: 1. Large [...] at 8:50 pm on 02/10/25. Reading Location: [id number] Assessment & Plan Assessment/Plan (1) Abnormal computed [...] definitive treatment of this issue given his bptgek-xul-xururd slurred speech, brain fog and headache. If [...] 75 minutes. Charges/Coding Visit Charges Inpatient E&M: 02881 Init Hosp L3 02/11/25 0642 <Electronically signed by Mitchell Deras DO> Cosigner Signature (if applicable): CC: Dr. Mitchell Deras DO; Dr. Beka Bowie MD~ Signed [facility] Work Phone: 1(264) 786-752703-26-[address] [facility] Medical Records Department [address] [place] [address] H&P Exam - Hospitalist 02/10/25 2311 MR#: [id number] Acct: [id number] Name: LATONYA ELDER Rep #:[id number] : 1970 54 From: Mitchell Marr DO [...] troponin and Respiratory Insufficiency who presents to [facility] ER complaining of who presents to [facility] ER complaining of slurred speech and brain fog since Saturday, February 08, 2025. Mr. Elder and his significant other reported that his symptoms have been lhzgkb-bxb-pxogtt for the past several days and since [...] is expected to extend beyond 2 midnights. [facility] Medical History History of DVT (deep vein [...] elevation myocardial infarction (NSTEMI) (11/22/20) Atherosclerosis [place] coronary artery of [place] heart without angina pectoris Non-ST elevation [place] (NSTEMI) Home Medications ?Medication ?Instructions ?Recorded ?Last [...] % (Auto) 61.8, Lymph % (Auto) 25.5, Randall % (Auto) 9.2, Eos % (Auto) 2.4, [...] are new since prior examination. Reading Location: [facility] Brain CT 02/10/25 18:31 IMPRESSION: [...] 8:00 pm with readback verification. Reading Location: [facility] Head/Neck CTA 02/10/25 18:31 IMPRESSION: [...] at 8:50 pm on 02/10/25. Reading Location: [facility] Assessment & Plan Assessment/Plan (1) Abnormal [...] definitive treatment of this issue given his jztuiv-tne-fpppyc slurred speech, brain fog and headache. If [...] 75 minutes. Charges/Coding Visit Charges Inpatient E&M: 91485 Init Hosp L3 02/11/25 0642 Cosigner Signature (if applicable): CC: Dr. Mitchell Deras DO; Dr. Beka Bowie MD~ Signed [facility]03-26-2025 Evaluation note* Diagnosis Onset Date Resolution Status Admit Date Abnormal computed tomography angiography of head acute February 11, 2025 12:04am Acute bacterial bronchitis acute February 11, 2025 12:04am Acute CVA (cerebrovascular accident) acute February 11, 2025 12:04am CVA (cerebral vascular accident) acute February 11, 2025 12:04am Obesity (BMI 30-39.9) acute Mar 2024 12:04am Pneumonia acute February 11 12:04am Uncontrolled hypertension acute February 11, 2025 12:04am COPD exacerbation chronic January 182024 12:04am [facility] Work Phone: 1(328) 555-574503-26-2025 Discharge summary Author Jasbir Curry [facility] Note Date/Time February 10, 2025 11: 30pm [facility] Medical Records Department [address] [place] [address] Emergency Department Summary 02/10/25 MR#: [id number] Acct: [id number] Name: LATONYA ELDER Rep #:[id number] : 1970 54 From: Jasbir Curry DO [...] his inhalers and other medications as prescribed [facility] Medical History History of DVT (deep [...] elevation myocardial infarction (NSTEMI) (11/22/20) Atherosclerosis of [place] coronary artery of [place] heart without angina pectoris Non-ST elevation NH (NSTEMI) Home Medications ?Medication ?Instructions ?Recorded ?Last [...] Patient following commands that he was at [facility] year [id number]. Patient completed finger-nose testing bilaterally for any [...] criteria. Discussed the case with neurology/neurosurgery at [facility] Dr. Barragan who reviewed everything and states [...] % (Auto) 61.8 Lymph % (Auto) 25.5 Randall % (Auto) 9.2 Eos % (Auto) 2.4 [...] (Auto) Neut % (Auto) Lymph % (Auto) Randall % (Auto) Eos % (Auto) Baso % [...] are new since prior examination. Reading Location: [id number]-[id number] Brain CT 02/10/25 18:31 IMPRESSION: 1.9 by [...] 8:00 pm with readback verification. Reading Location: [facility] Head/Neck CTA 02/10/25 18:31 IMPRESSION: 1. 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 Small caliber distal right ARLEY. Consider neuro IR consultation and/or neurology consult for discussion of endovascular thrombectomy versus anticoagulation. 2. Approximately 50% stenosis of the left carotid artery by NASCET criteria. Dr. Thompson discussed these findings via telephone with Dr. Curry at 8:50 pm on 02/10/25. Reading Location: [facility] Discharge Plan Triage Chief Complaint: Chest [...] MD [Primary Care Provider] - Print Language: Scottish Disposition Disposition: Acute Care [facility] What to do if you have Problems For any increased pain, shortness of breath, bleeding, nausea or vomiting, chestpain, or any unexpected problems, contact your Primary Care Provider. Call [facility] ([phone]) or report to the closest Emergency Room. Call 911 if necessary. 02/10/25 2330 <Electronically signed by Jasbir Curry DO> Cosigner Signature (if applicable): CC: Dr. Beka Bowie MD ~ Signed [facility] Work Phone: 1(167) 428-739303-25-2025 Discharge summary [facility] Medical Records Department [address] [place] [address] Emergency Department Summary 02/10/25 MR#: [id number] Acct: [id number] Name: LATONYA ELDER Rep #:[id number] : 1970 54 From: Jasbir Curry DO PCP: Dr. Beka Bowie MD Status:R ER Location: ED HPI History of Present [...] his inhalers and other medications as prescribed [facility] Medical History History of DVT (deep [...] elevation myocardial infarction (NSTEMI) (11/22/20) Atherosclerosis of [place] coronary artery of [place] heart without angina pectoris Non-ST elevation NH (NSTEMI) Home Medications ?Medication ?Instructions ?Recorded ?Last [...] Patient following commands that he was at [facility] year [id number]. Patient completed finger-nose testing bilaterally for any [...] criteria. Discussed the case with neurology/neurosurgery at [facility] Dr. Barragan who reviewed everything and states [...] % (Auto) 61.8 Lymph % (Auto) 25.5 Randall % (Auto) 9.2 Eos % (Auto) 2.4 [...] (Auto) Neut % (Auto) Lymph % (Auto) Randall % (Auto) Eos % (Auto) Baso % [...] are new since prior examination. Reading Location: ORU-[id number]-WN Brain CT 02/10/25 18:31 IMPRESSION: 1.9 by [...] 8:00 pm with readback verification. Reading Location: [facility] Head/Neck CTA 02/10/25 18:31 IMPRESSION: [...] at 8:50 pm on 02/10/25. Reading Location: [facility] Discharge Plan Triage Chief Complaint: Chest [...] MD [Primary Care Provider] - Print Language: Scottish Disposition Disposition: Acute Care [facility] What to do if you have Problems For any increased pain, shortness of breath, bleeding, nausea or vomiting, chestpain, or any unexpected problems, contact your Primary Care Provider. Call [facility] ([phone]) or report tothe closest Emergency Room. Call 911 if necessary. 02/10/25 2330 Cosigner Signature (if applicable): CC: Dr. Beka Bowie MD ~ Signed [facility]03-25-2025 Radiology Diagnostic study note [facility] Imaging Services [address] [place], [place] [address] STROKE CTA Head AND Neck W/Con MR#: [id number] Acct: [id number] Name: LATONYA ELDER Rep #: [id number] : 1970 M 54 From: Rajani Thompson MD PCP: Dr. Beka Bowie MD Status: R EG ER Study:STROKE CTA Head AND Neck W/Con Date of Exam: 02/10/25 Exam# [id number] Ordering Dr: Nancy Curry DO PROCEDURE: STROKE [...] caliber. There is origin of the right BEVERAGE STEWARD. The middle and posterior cerebral arteries are [...] at 8:50 pm on 02/10/25. Reading Location: [id number] CC: Dr. Beka Bowie MD; Dr. Jasbir Curry, DO ~ Public Health Dietitian: Signed [facility]03-25-2025 Radiology Diagnostic study note [facility] Imaging Services [address] [place] [address] Chest PA and Lateral MR#: [id number] Acct: [id number] Name: LATONYA ELDER Rep #: [id number] : 1970 M 54 From: Kelvin Woods MD PCP: Dr. Beka Bowie MD Status: R EG ER Study:Chest PA and Lateral Date of Exam: 02/10/25 Exam# [id number] Ordering Dr: Nancy Curry DO PROCEDURE: CHEST [...] are new since prior examination. Reading Location: [id number] CC: Dr. Beka Bowie MD; Dr. Jasbir Curry DO ~ Public Health Dietitian: Signed [facility]03-25-2025 Radiology Diagnostic study note [facility] Imaging Services [address] [place], [place] [address] STROKE Brain/Head without Cont MR#: [id number] Acct: [id number] Name: LATONYA ELDER Rep #: [id number] : 1970 M 54 From: Kelvin Woods MD PCP: Dr. Beka Bowie MD Status: R EG ER Study:STROKE Brain/Head without Cont Date of Exam: 02/10/25 Exam# [id number] Ordering Dr: Nancy Curry DO EXAM: CT [...] 8:00 pm with readback verification. Reading Location: [id number] CC: Dr. Beka Bowie MD; Dr. Jasbir Curry, DO ~ Public Health Dietitian: Signed [facility]11-25-2024 [facility]-29-2024 NoteHNO ID: [id number] Author: RAD RENEE APRN.GENERAL TELLER Service: ? Author Type: Nurse Practitioner Type: Progress Notes Filed: 03/17/2024 07:43 Note Text: This note was created using Fisgoriter. Subjective Latonya Elder is a 53 year [...] UNIT-TRIMETHOPRIM 1 MG/ML EYE DROPS Rad Renee APRN.[facility]04-29-2024 Instructions* Patient Instructions* Rad Renee APRN.GENERAL TELLER - 03/17/2024 7:41 AM EDT CONJUNCTIVITIS GENERAL [...] 100.5 F (38 C). [facility] in [facility]04-29-2024 History of Present illness Narrative* Rad Renee APRN.RACHEL - 03/17/2024 7:37 AM EDT This note was created using Wanderu. Subjective Latonya Elder is a 53 year [...] UNIT-TRIMETHOPRIM 1 MG/ML EYE DROPS Rad Renee APRN.GENERAL TELLER documented in this [facility]Bl[facility]02-07-2024 Progress note Author Harvey Murphy [facility] December 26, 2023 9:31am Note Date/Time December 26, 2023 9 :25am [facility] Medical Records Department [address] [place] [address] Progress Note - Cardiology 12/26/23 0923 MR#: [id number] Acct: [id number] Name: LATONYA ELDER Rep #:[id number] : 1970 53 From: Harvey Murphy MD PCP: Dr. Beka Bowie MD Status:A DM IN Location: [place] [address] Subjective Subjective The patient is sitting up [...] 23:59 23:59 Intake Total 114.28 / 623.28 Balance 114.28 / 623.28 Lab / Micro [...] call for office visit. (2) Non-ST elevation NH (NSTEMI): PLAN: The patient underwent stenting of [...] to Brilinta he should be discharged on Kkpjvgdi87 mg twice daily. This should be maintained for at least 6 weeks and then if necessary can be switched back to his chronic Plavix. 3. Right cardiovascular standpoint the patient can be discharged home. Charges/Coding Visit Charges Inpatient E&M: 85484 Subs Hosp L2 12/26/23930 <Electronically signed by Harvey Murphy MD> Cosigner Signature (if applicable): CC: ~ Signed [facility] Work Phone: 1(842) 722-797602-07-2024 Discharge summary Author Maldonado Whitt [facility] December 26, 2023 11:16am Note Date/Time December 26, 2023 9 :21am [facility] Medical Records Department [address] [place] [address] Instructions for Home/Discharge Instructions 12/26/23919 MR#: [id number] Acct: [id number] Name: LATONYA ELDER Rep #:[id number] : 1970 53 From: Maldonado mcmullen DO [...] MD; Dr. Mary Lewis MD ~ Signed [facility] Work Phone: 1(827) 987-532702-07-2024 Progress note Author Maldonado Whitt [facility] December 25, 2023 11:15pm Note Date/Time December 25, 2023 3 :18pm [facility] Medical Records Department [address] [place] [address] Progress Note - Hospitalist 12/25/23 1518 MR#: [id number] Acct: [id number] Name: LATONYA ELDER Rep #:[id number] : 1970 53 From: Maldonado mcmullen DO PCP: Dr. Beka Bowie MD Status:A DM IN Location: [place] [address] Reason for Visit Reason for Visit: Diagnoses [...] (Auto) 75.1 H, Lymph % (Auto) 14.1 L,Randall % (Auto) 8.8, Eos % (Auto) 1.0, [...] Assessment & Plan Assessment/Plan (1) Non-ST elevation NH (NSTEMI): (2) Hypertensive emergency: PLAN: Plan Patient is a 53 year old male who presented to [facility] ED on 12/24/2023 with worsening chest [...] 35 minutes. Charges/Coding Visit Charges Inpatient E&M: 89005 Subs Hosp L2 12/25/23 2311 <Electronically signed by Maldonado Whitt DO> Cosigner Signature (if applicable): CC: ~ Signed [facility] Work Phone: 1(464) 874-425202-06-2024 Progress note Author Harvey Murphy [facility] December 25, 2023 7:52am Note Date/Time December 25, 2023 7 :53am [facility] Medical Records Department [address] [place] [address] Progress Note - Cardiology 12/25/23 0747 MR#: [id number] Acct: [id number] Name: LATONYA ELDER Rep #:[id number] : 1970 53 From: aHrvey Murphy MD PCP: Dr. Beka Bowie MD Status:A DM IN Location: [place] [address]- 1 Subjective Subjective Patient reports he had [...] % (Auto) 67.1, Lymph % (Auto) 20.4, Randall % (Auto) 10.0, Eos % (Auto) 0.9, [...] (Auto) 75.1 H, Lymph % (Auto) 14.1 L,Randall % (Auto) 8.8, Eos % (Auto) 1.0, [...] % (Auto) 67.1, Lymph % (Auto) 20.4, Randall % (Auto) 10.0, Eos % (Auto) 0.9, [...] 75.1 H, Lymph % (Auto) 14.1 L, Randall % (Auto) 8.8, Eos % (Auto) 1.0, [...] Assessment & Plan Assessment/Plan (1) Non-ST elevation NH (NSTEMI): PLAN: Patient's enzymes appear to peaked [...] coronary anatomy. Charges/Coding Visit Charges Inpatient E&M: 76066 Subs Hosp L2 12/25/23 7136 <Electronically signed by Harvey Murphy MD> Cosigner Signature (if applicable): CC: ~ Signed [facility] Work Phone: 1(331) 913-386702-05-2024 Consult note Author Harvey Murphy [facility] December 24, 2023 3:20pm Note Date/Time December 24, 2023 2 :56pm [facility] Medical Records Department [address] [place] [address] Consultation - Cardiology 12/24/23 1454 MR#: [id number] Acct: [id number] Name: LATONYA ELDER Rep #:[id number] : 1970 53 From: Harvey Murphy MD PCP: Dr. Beka Bowie MD Status:A DM IN Location: [place] [address] Assessment & Plan Assessment/Plan (1) Non-ST elevation NH (NSTEMI): PLAN: The patient's symptoms are consistent [...] History Acute sinusitis, unspecified Asthma Atherosclerosis of [place] coronary artery of [place] heart without angina pectoris Chronic obstructive pulmonary disease (COPD) Cluster headache Community acquired pneumonia COPD (chronic obstructive pulmonary disease) Coronary artery disease Diabetes Essential hypertension Headache History of non-ST elevation myocardial infarction (NSTEMI) (11/22/20) Hyperlipidemia Insulin dependent diabetes mellitus Ischemic cardiomyopathy Left shoulder pain Migraine Myocardial infarct Nicotine dependence Non-ST elevation NH (NSTEMI) Obesity Obesity (BMI 30.0-34.9) Smoker Home [...] 20% Risk Charges/Coding Visit Charges Inpatient E&M: 42712 Init Hosp L3 Objective Data Vital Signs: [...] % (Auto) 67.1, Lymph % (Auto) 20.4, Randall % (Auto) 10.0, Eos % (Auto) 0.9, [...] % (Auto) 67.1, Lymph % (Auto) 20.4, Randall % (Auto) 10.0, Eos % (Auto) 0.9, [...] 13:13 EST Reading Location ID and State: [address] [place] [address] , Service support , EKG Initial EKG: Attestation: I personally reviewed and interpreted this EKG as follows: Prior EKG tracings: available for review Interpretation: Normal sinus rhythm with nonspecific ST-T wave changes no significant change from prior EKG. 12/24/23 1520 <Electronically signed by Harvey Murphy MD> Cosigner Signature (if applicable): CC: Dr. Beka Bowie MD~ Signed [facility] Work Phone: 1(143) 481-742302-05-2024 History and physical note Author aMry Lewsi [facility] December 24, 2023 3:15pm Note Date/Time December 24, 2023 3 :13pm [facility] Medical Records Department [address] [place] [address] H&P Exam - Hospitalist 12/24/23 1503 MR#: [id number] Acct: [id number] Name: LATONYA ELDER Rep #:[id number] : 1970 53 From: Mary Lewis MD PCP: Dr. Beka Bowie MD Status:A DM IN Location: [facility] KAY460- 1 HPI - General General Date of Admission: 12/24/23 Date of Service: 12/24/23 Chief Complaint: Chest pain, SOB HPI Narrative LATONYA ELDER, is a 53-year-old male history of COPD, tobacco use, hypertension, type 2 diabetes mellitus, CAD with 7 stents who presented to [facility] ED 12/24/2023 with chest pain for [...] History Acute sinusitis, unspecified Asthma Atherosclerosis of [place] coronary artery of [place] heart without angina pectoris Chronic obstructive pulmonary disease (COPD) Cluster headache Community acquired pneumonia COPD (chronic obstructive pulmonary disease) Coronary artery disease Diabetes Essential hypertension Headache History of non-ST elevation myocardial infarction (NSTEMI) (11/22/20) Hyperlipidemia Insulin dependent diabetes mellitus Ischemic cardiomyopathy Left shoulder pain Migraine Myocardial infarct Nicotine dependence Non-ST elevation NH (NSTEMI) Obesity Obesity (BMI 30.0-34.9) Smoker Home [...] % (Auto) 67.1, Lymph % (Auto) 20.4, Randall % (Auto) 10.0, Eos % (Auto) 0.9, [...] 13:13 EST Reading Location ID and State: [address] [place] [address] , Service support , Assessment & Plan [...] hep gtt Charges/Coding Visit Charges Inpatient E&M: 57779 Init Hosp L2 12/24/23 5865 <Electronically signed by Mary Lewis MD> Cosigner Signature (if applicable): CC: Dr. Beka Bowie MD; Dr. Mary Lewis MD~ Signed [facility] Work Phone: 1(614) 562-555802-05-2024 Discharge summary Author Pollo Bond [facility] December 24, 2023 3:00pm Note Date/Time December 24, 2023 1 2:40pm [facility] Medical Records Department [address] [place] [address] Emergency Department Summary 12/24/23 MR#: [id number] Acct: [id number] Name: LATONYA ELDER Rep #:[id number] : 1970 53 From: Pollo Bond MD [...] History Acute sinusitis, unspecified Asthma Atherosclerosis of [place] coronary artery of [place] heart without angina pectoris Chronic obstructive pulmonary disease (COPD) Cluster headache Community acquired pneumonia COPD (chronic obstructive pulmonary disease) Coronary artery disease Diabetes Essential hypertension Headache History of non-ST elevation myocardial infarction (NSTEMI) (11/22/20) Hyperlipidemia Insulin dependent diabetes mellitus Ischemic cardiomyopathy Left shoulder pain Migraine Myocardial infarct Nicotine dependence Non-ST elevation NH (NSTEMI) Obesity Obesity (BMI 30.0-34.9) Smoker Home [...] and heparin drip after discussion with the emergency veterinary technician, Dr. Harvey Murphy. Additionally, I discussedthe [...] % (Auto) 67.1 Lymph % (Auto) 20.4 Randall % (Auto) 10.0 Eos % (Auto) 0.9 [...] healthcare provider: Hospitalist (Dr. Mary Lewis) and Alum Plant Supervisor (Dr. Harvey Murphy) Critical Care Time Critical care time (excluding procedures): 30-74 minutes (31), Including time spent:, Discussing w/Patient &/or Family/Cigarette Paper Tester, Discussing w/Consultants, Arranging Admission or Transfer and Performing Direct Patient Care at Bedside Discharge Plan Dx/Rx/DC Orders Clinical Impression: Nicotine dependence, Hypertensive emergency, Non-ST elevation NH (NSTEMI), Chest pain Disposition Disposition: Acute Care Hospital [facility] What to do if you have Problems For any increased pain, shortness of breath, bleeding, nausea or vomiting, chestpain, or any unexpected problems, contact your Primary Care Provider. Call [facility] ([phone]) or report to the closest Emergency Room. Call 911 if necessary. 12/24/23 1500 <Electronically signed by Pollo Bond MD> Cosigner Signature (if applicable): CC: Dr. Beka Bowie MD ~ Signed [facility] Work Phone: 1(937) 457-617601-03-2024 Discharge summary Author Luis York [facility] November 21, 2023 10:11am Note Date/Time November 21, 2023 7: 12am [facility] Medical Records Department [address] [place] [address] Emergency Department Summary 11/21/23 MR#: [id number] Acct: [id number] Name: LATONYA ELDER Rep #:[id number] : 1970 53 From: Luis York MD [...] History Acute sinusitis, unspecified Asthma Atherosclerosis of [place] coronary artery of [place] heart without angina pectoris Chronic obstructive pulmonary disease (COPD) Cluster headache Community acquired pneumonia COPD (chronic obstructive pulmonary disease) Coronary artery disease Diabetes Essential hypertension Headache History of non-ST elevation myocardial infarction (NSTEMI) (11/22/20) Hyperlipidemia Insulin dependent diabetes mellitus Ischemic cardiomyopathy Left shoulder pain Migraine Myocardial infarct Nicotine dependence Non-ST elevation NH (NSTEMI) Obesity Obesity (BMI 30.0-34.9) Smoker Home [...] arms there was no vertical drip. His business representative were normal. Facial structure was normal. Sensation [...] threshold to return. He should call his emergency veterinary technician, Dr. Flores for close follow-up. Make [...] % (Auto) 62.0 Lymph % (Auto) 25.2 Randall % (Auto) 9.8 Eos % (Auto) 2.0 [...] MD [Med Staff - Active Staff] - eBka Bowie MD [Primary Care Provider] - Disposition Disposition: Home, Self Care What to do if you have Problems For any increased pain, shortness of breath, bleeding, nausea or vomiting, chestpain, or any unexpected problems, contact your Primary Care Provider. Call [facility] ([phone]) or report to the closest Emergency Room. Call 911 if necessary. 11/21/23 1011 <Electronically signed by Luis York MD> Cosigner Signature (if applicable): CC: Dr. Beka Bowie MD ~ Signed [facility] Work Phone: Consult note Author Harvey Murphy [facility] December 24, 2023 3:20pm Note Date/Time December 24, 2023 2 :56pm [facility] Medical Records Department [address] [place] [address] Consultation - Cardiology 12/24/23 1454 MR#: [id number] Acct: [id number] Name: LATONYA ELDER Rep #:[id number] : 1970 53 From: Harvey Murphy MD PCP: Dr. Beka Bowie MD Status:A DM IN Location: [facility] OJF379- 1 Assessment & Plan Assessment/Plan (1) Non-ST elevation NH (NSTEMI): PLAN: The patient's symptoms are consistent [...] History Acute sinusitis, unspecified Asthma Atherosclerosis of [place] coronary artery of [place] heart without angina pectoris Chronic obstructive pulmonary disease (COPD) Cluster headache Community acquired pneumonia COPD (chronic obstructive pulmonary disease) Coronary artery disease Diabetes Essential hypertension Headache History of non-ST elevation myocardial infarction (NSTEMI) (11/22/20) Hyperlipidemia Insulin dependent diabetes mellitus Ischemic cardiomyopathy Left shoulder pain Migraine Myocardial infarct Nicotine dependence Non-ST elevation NH (NSTEMI) Obesity Obesity (BMI 30.0-34.9) Smoker Home [...] 20% Risk Charges/Coding Visit Charges Inpatient E&M: 95457 Init Hosp L3 Objective Data Vital Signs: [...] % (Auto) 67.1, Lymph % (Auto) 20.4, Randall % (Auto) 10.0, Eos % (Auto) 0.9, [...] % (Auto) 67.1, Lymph % (Auto) 20.4, Randall % (Auto) 10.0, Eos % (Auto) 0.9, [...] 13:13 EST Reading Location ID and State: [address] [place] [address] , Service support , EKG Initial EKG: Attestation: I personally reviewed and interpreted this EKG as follows: Prior EKG tracings: available for review Interpretation: Normal sinus rhythm with nonspecific ST-T wave changes no significant change from prior EKG. 12/24/23 1520 <Electronically signed by Harvey Murphy MD> Cosigner Signature (if applicable): CC: Dr. Beka Bowie MD~ Signed [facility] Work Phone: Discharge summary Author Brennon uJarez [facility] Note Date/Time February 11, 2025 2:3 2pm [facility] Medical Records Department [address] [place] [address] Discharge Summary 02/11/25 1421 MR#: [id number] Acct: [id number] Name: LATONYA ELDER Rep #:[id number] : 1970 54 From: Brennon Juarez DO PCP: Dr. Beka Bowie MD Status:A DM IN Location: ICU CVICU 1-1 Providers Date of Admission: 02/11/25 Primary [...] note (formal note not yet available in [facility]) who advised to give ASA and [...] seen the patient on 10/12 for a CLINICAL DATA ASSISTANT for coughing fit then led to a [...] % (Auto) 61.8, Lymph % (Auto) 25.5, Randall % (Auto) 9.2, Eos % (Auto) 2.4, [...] are new since prior examination. Reading Location: BNY-QEMNUMCP-FS Brain CT 02/10/25 18:31 IMPRESSION: 1.9 by [...] 8:00 pm with readback verification. Reading Location: XMX-CYSEMYLK-FR Head/Neck CTA 02/10/25 18:31 IMPRESSION: 1. Large [...] at 8:50 pm on 02/10/25. Reading Location: [facility] Brain MRI 02/11/25 00:16 IMPRESSION: Acute white matter infarction, with stable size, seen in the area hypodensity noted in the CT of 02/11/2025. Reading Location: [address] Echocardiogram 02/11/25 00:16 Interpretation Summary Normal [...] Beka Bowie Consulting Providers: Federico Ramirez; Willie Augiar; Ayla Todd; Zeynep Daly; Asia Barragan; Eduardo [...] with neurology at your early convenience. [facility] [phone]. [facility] [place] [phone]. [facility] [place] [phone]. [facility] [phone]. [facility] [phone] Additionally looks like you have a pneumonia [...] Recorder Preventi (Urgent) Timeframe: 1 Day Facility: [facility] - Location: Cardiovascular Services Ordered By: Dr. Brennon Juarez Referrals / Follow Up: Beka Bowie MD [Primary Care Provider] - Within 2 Weeks Disposition Disposition (needs filled in before D/C Order can be placed): Home, Self Care Charges/Coding Visit Charges Inpatient E&M: 04388 Disch Hosp >30min 02/11/25 1432 <Electronically signed by Brennon Juarez DO> Cosigner Signature (if applicable): CC: Dr. Beka Bowie MD; Dr. Brennon Juarez DO~ Signed [facility] Work Phone: Discharge summary Author Sheyla [facility] Note Date/Time July 07, 2025 12 :22pm [facility] Medical Records Department 87 [place] [id number] Instructions for Home/Discharge Instructions 07/07/25 1045 MR#: [id number] Acct: [id number] Name: LATONYA ELDER Rep #:[id number] : 1970 54 From: Sheyla Ortega MD PCP: Dr. Beka Bowie MD Status:A DM SINDY Discharge Instructions DC O2, CPAP, BIPAP needs Home O2 Discharge instructions: No Dressing / Incision Discharge Activity: Return to Normal Activity Weight Bearing Status: Weight bearing as tolerated Dressing / Incision Call your doctor if you observe: Fever of 101 or Higher, Shortness of breath, Dizziness, Swelling in the ankles and Chest pain Follow Up Care Test Results: Test results from this visit will be discussed in further detail at your follow- up appointment, if applicable. Discharge Plan Admission Admit Date/Time: 07/06/25 00:15 Primary Reason for Your Visit: nstemi Attending Provider: Sheyla Ortega Primary Care Provider: Beka Bowie Consulting Providers: Mitchell Deras; Eric Flores Instructions Patient Instructions: Heart Attack Dc, Heart Attack Meds Additional Instructions / Restrictions: cousnseled strongly to quit smoking Discharge Orders/Prescriptions Prescriptions: New clindamycin HCl [Cleocin HCl] 300 mg capsule 600 mg PO TID 7 Days Qty: 42 0RF Continued insulin degludec [Tresiba FlexTouch U-200] 200 unit/mL (3 mL) insulin pen 50 unit SUBCUT QHS 90 Days Qty: 22.5 1RF aspirin 81 MG tablet,chewable 81 mg PO DAILY loratadine 10 mg tablet 10 mg PO DAILY PRN (Reason: allergies) lisinopril 20 mg tablet 20 mg PO BID insulin lispro [Humalog KwikPen Insulin] 100 unit/mL Insulin Pen 20 unit subcut TIDAC PRN (Reason: DIABETES) guaifenesin [Mucus Relief ER] 1,200 mg Tablet Extended Release 12hr 600 mg PO BID albuterol sulfate 90 mcg/actuation HFA aerosol inhaler 2 puff INHALATION 4X/DAY PRN (Reason: Shortness Of Breath) Qty: 8.5 0RF carvedilol 25 mg tablet 25 mg PO BIDCM Qty: 180 3RF clonidine HCl 0.1 mg tablet 0.1 mg PO BID Qty: 180 3RF furosemide [Lasix] 20 mg tablet 60 mg PO DAILY Qty: 270 3RF atorvastatin 80 mg tablet 80 mg PO QHS Qty: 90 0RF ranolazine 1,000 mg tablet extended release 12 hr 1,000 mg PO BID Qty: 60 11RF isosorbide mononitrate 60 mg tablet extended release 24 hr 60 mg PO BID Qty: 180 3RF clopidogrel [Plavix] 75 mg tablet 75 mg PO DAILY Qty: 90 3RF amlodipine 10 mg tablet 10 mg PO DAILY Qty: 90 3RF nitroglycerin 0.4 mg tablet, sublingual 0.4 mg sublingual Q5-15M Qty: 25 3RF Referrals / Follow Up: Eric Flores MD [Med Staff - Active Staff] - Within 1 Month Beka Bowie MD [Primary Care Provider] - Within 2 Weeks Disposition Disposition (needs filled in before D/C Order can be placed): Home, Self Care 07/07/25 1045<Electronically signed by Sheyla Ortega MD>Sheyla Ortega MD CC: Dr. Eric Flores MD; Dr. Mitchell Deras DO; Dr. 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 Coronary artery disease acut e Unstable angina acute [facility] Work Phone: Evaluation note* Diagnosis Onset Date Resolution Status Essential hypertension acute [id number] chronic Hyperlipidemia chronic Ischemic cardiomyopathy 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 Nicotine dependence chronic History of coronary artery stent placement November 182020 resolved Coronary artery disease acut e Essential hypertension acute Insulin dependent diabetes mellitus acute Nicotine dependence chronic History of coronary artery stent placement November 182020 resolved Diabetes acute Obesity (BMI 30.0-34.9) 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 Chest pain acute Coronary artery disease acut e Essential hypertension acute Unstable angina acute [id number] chronic History of non-ST elevation myocardial infarction (NSTEMI) November 22, 2020 chronic Hyperlipidemia chronic History of coronary artery stent placement November 182020 resolved [facility] Work Phone: Evaluation note* Diagnosis Onset Date Resolution Status Diabetes acute Obesity (BMI 30.0-34.9) 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 Essential hypertension acute Chest pain resolved Unstable angina resolved Essential hypertension acute Ischemic cardiomyopathy 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 Nicotine dependence chronic Diabetes acute Essential hypertension acute Left shoulder pain acute [facility] Work Phone: Evaluation note* Diagnosis Onset Date Resolution Status Diabetes acute Obesity (BMI 30.0-34.9) 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 Essential hypertension acute Chest pain resolved Unstable angina resolved Essential hypertension acute Ischemic cardiomyopathy 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 Nicotine dependence chronic Diabetes acute Essential hypertension acute Left shoulder pain acute Diabetes acute Hypertensive urgency acute Non-ST elevation (NSTEMI) myocardial infarction acute [facility] Work Phone: Evaluation note* Diagnosis Onset Date Resolution Status Diabetes acute Obesity (BMI 30.0-34.9) 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 [id number] acute Essential hypertension acute Chest pain resolved Unstable angina resolved [id number] acute Essential hypertension acute Ischemic cardiomyopathy 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 Nicotine dependence chronic Diabetes acute Essential hypertension acute Left shoulder pain acute [id number] acute Diabetes acute Essential hypertension acute Hypertensive urgency acute Non-ST elevation (NSTEMI) myocardial infarction acute [facility] Work Phone: Evaluation noteNo assessment information available [facility] Work Phone: Evaluation note* Diagnosis Onset Date Resolution Status Chest pain acute Essential hypertension acute COPD (chronic obstructive pulmonary disease) chronic Nicotine dependence chronic [facility] Work Phone: Evaluation note* Diagnosis Onset Date Resolution Status Chest pain acute Essential hypertension acute COPD (chronic obstructive pulmonary disease) chronic Nicotine dependence chronic Chest pain acute Essential hypertension acute History of coronary artery stent placement November 182020 acute Hypertensive emergency acute Non-ST elevation NH (NSTEMI) acute COPD (chronic obstructive pulmonary disease) chronic Nicotine dependence chronic Elevated troponin resolved Hypertensive urgency resolve d [facility] Work Phone: Evaluation note* Diagnosis Onset Date Resolution Status Chest pain acute Essential hypertension acute COPD (chronic obstructive pulmonary disease) chronic Nicotine dependence chronic Chest pain acute Essential hypertension acute History of coronary artery stent placement December acute Hypertensive emergency acute Non-ST elevation NH (NSTEMI) acute COPD (chronic obstructive pulmonary disease) chronic Nicotine dependence chronic Elevated troponin resolved Hypertensive urgency resolve d [facility] Work Phone: Evaluation note* Diagnosis Onset Date Resolution Status Chest pain resolved Chest pain resolved Elevated troponin resolved Hypertensive emergency resol cameron Hypertensive urgency resolve d Non-ST elevation NH (NSTEMI) resolved Chest pain resolved Non-ST elevation NH (NSTEMI) resolved [facility] Work Phone: Evaluation note* Diagnosis Onset Date Resolution Status COPD (chronic obstructive pulmonary disease) chronic Essential hypertension chron ic Chest pain resolved COPD (chronic obstructive pulmonary disease) chronic Essential hypertension chron ic Chest pain resolved Elevated troponin resolved Hypertensive emergency resol cameron Hypertensive urgency resolve d Non-ST elevation NH (NSTEMI) resolved Essential hypertension chron ic Chest pain resolved Non-ST elevation NH (NSTEMI) resolved Vitamin D deficiency acute Essential hypertension chron ic Ischemic cardiomyopathy 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 COPD (chronic obstructive pulmonary disease) chronic Essential hypertension chron ic Insulin dependent diabetes mellitus chronic [facility] Work Phone: Evaluation note* Diagnosis Bacterial conjunctivitis- Primary Other conjunctiv[facility] Diagnosis Onset Date Resolution Status Admit Date Abnormal computed tomography angiography of head acute February 11, 2025 12:04am Acute bacterial bronchitis acute February 11, 2025 12:04am Acute CVA (cerebrovascular accident) acute February 11, 2025 12:04am Obesity (BMI 30-39.9) acute Jan 12:04am Uncontrolled hypertension acute February 11, 2025 12:04am COPD exacerbation chronic January 182024 12:04am [facility] Work Phone: Evaluation note* Diagnosis Onset Date Resolution Status Admit Date Cardiac LV ejection fraction 21-30% acute July 06 12:15am Chest pain acute July 06, 025 12:15am Diabetes acute July 06, 025 12:15am Elevated troponin acute July 06, 2025 12:15am Essential hypertension acute Au kaylee 2024 12:15am History of non-ST elevation myocardial infarction (NSTEMI) November 22, 2020 acute July 06, 12:15am Hyperglycemia due to type 2 diabetes mellitus acute July 06, 025 12:15am Hypertensive emergency acute Au kaylee 2024 12:15am Ischemic cardiomyopathy acute A ugust 2024 12:15am Leukocytosis acute July 06, 2025 12:15am Obesity (BMI 30-39.9) acute Jun us2024 12:15am Parotitis acute July 06, 025 12:15am [facility] Work Phone: History and physical note Author Mary Lewis [facility] December 24, 2023 3:15pm Note Date/Time December 24, 2023 3 :13pm [facility] Medical Records Department [address] [place] [address] H&P Exam - Hospitalist 12/24/23 1503 MR#: [id number] Acct: [id number] Name: LATONYA ELDER Rep #:[id number] : 1970 53 From: Mary Lewis MD PCP: Dr. Beka Bowie MD Status:A DM IN Location: [facility] [id number] HPI - General General Date of Admission: 12/24/23 Date of Service: 12/24/23 Chief Complaint: Chest pain, SOB HPI Narrative LATONYA ELDER, is a 53-year-old male history of COPD, tobacco use, hypertension, type 2 diabetes mellitus, CAD with 7 stents who presented to [facility] ED 12/24/2023 with chest pain for [...] History Acute sinusitis, unspecified Asthma Atherosclerosis of [place] coronary artery of [place] heart without angina pectoris Chronic obstructive pulmonary disease (COPD) Cluster headache Community acquired pneumonia COPD (chronic obstructive pulmonary disease) Coronary artery disease Diabetes Essential hypertension Headache History of non-ST elevation myocardial infarction (NSTEMI) (11/22/20) Hyperlipidemia Insulin dependent diabetes mellitus Ischemic cardiomyopathy Left shoulder pain Migraine Myocardial infarct Nicotine dependence Non-ST elevation NH (NSTEMI) Obesity Obesity (BMI 30.0-34.9) Smoker Home Medications albuterol sulfate 90 mcg/actuation aerosol inhaler 2 puff inhalation 4X/DAY PRN Shortness Of Breath 04/27/22 [History Last Taken 04/27/22] aspirin 81 mg chewable tablet 81 mg PO DAILY heart health 04/27/22 [History Last Taken 06/09/22] atorvastatin 80 mg tablet 80 mg PO [...] % (Auto) 67.1, Lymph % (Auto) 20.4, Randall % (Auto) 10.0, Eos % (Auto) 0.9, [...] Jin Woodall MD at 13:13 EST , Assessment & Plan Assessment/Plan (1) Elevated [...] hep gtt Charges/Coding Visit Charges Inpatient E&M: 66369 Init Hosp L2 12/24/23 1132 <Electronically signed by Mary Lewis MD> Cosigner Signature (if applicable): CC: Dr. Beka Bowie MD; Dr. Mary Lewis MD~ Signed [facility] Work Phone: Hospital Discharge instructionsAmbulatory Orders* Phase II, Outpatient Cardiac Rehab Location: None Selected [facility] Work Phone: Hospital Discharge instructionsAdditional Instructions cousnseled strongly to quit [facility] Work Phone: Reason for referral (narrative)No reason for referral information availableWUniversity [facility] Work Phone: Chief Complaint and Reason for Visit Chief Complaint FU FROM ER chest pain chest pain 3 M FU 6 M FU UNSTABLE ANGINA Reason for Visit Essential hypertensi on [id number] Hyperlipidemia Ischemic cardiomyopathy Nicotine dependence History of [...] ANGINA Reason for Visit Essential hypertensi on [id number] Hyperlipidemia Ischemic cardiomyopathy Nicotine dependence History of coronary artery stent placement Coronary artery disease Essential hypertension Insulin dependent diabetes mellitus Nicotine dependence History of coronary artery stent placement Diabetes Obesity (BMI 30.0-34.9) Chest pain Coronary artery disease Essential hypertension Unstable angina [id number] History of non-ST elevation myocardial infarction (NSTEMI) [...] Reason for Visit Diabetes Obesity (BMI 30.0-34.9) [id number] Essential hypertension Chest pain Unstable angina [id number] Essential hypertension Ischemic cardiomyopathy Nicotine dependence Diabetes Essential hypertension Left shoulder pain [id number] Diabetes Essential hypertension Hypertensive urgency Non-ST elevation [...] artery stent placement Hypertensive emergency Non-ST elevation NH (NSTEMI) COPD (chronic obstructive pulmonary disease) Nicotine [...] artery stent placement Hypertensive emergency Non-ST elevation NH (NSTEMI) COPD (chronic obstructive pulmonary disease) Nicotine dependence Elevated troponin Hypertensive urgency Chief Complaint CHEST PAIN CHEST PAIN ER FU CHEST PAIN CHEST PAIN Amb Documentation NSTEMI, HYPERTENSIVE EMERGENCY NSTEMI, HYPERTENSIVE EMERGENCY NSTEMI, HYPERTENSIVE EMERGENCY NSTEMI, HYPERTENSIVE EMERGENCY NSTEMI, HYPERTENSIVE EMERGENCY [facility] FOLLOW UP Reason for Visit Chest pain Chest pain Elevated troponin Hypertensive emergency Hypertensive urgency Non-ST elevation NH (NSTEMI) Chest pain Non-ST elevation NH (NSTEMI) Chief Complaint CHEST PAIN CHEST PAIN ER FU CHEST PAIN CHEST PAIN Amb Documentation NSTEMI, HYPERTENSIVE EMERGENCY NSTEMI, HYPERTENSIVE EMERGENCY NSTEMI, HYPERTENSIVE EMERGENCY NSTEMI, HYPERTENSIVE EMERGENCY NSTEMI, HYPERTENSIVE EMERGENCY [facility] FOLLOW UP S/P [facility] 12/26 HTN URGENCY fu Severe persistent asthma, uncomplicated Reason for Visit COPD (chronic obstru ctive pulmonary disease) Essential hypertension Chest pain COPD (chronic obstructive pulmonary disease) Essential hypertension Chest pain Elevated troponin Hypertensive emergency Hypertensive urgency Non-ST elevation NH (NSTEMI) Essential hypertension Chest pain Non-ST elevation NH (NSTEMI) Vitamin D deficiency Essential hypertension Ischemic [...] 11, 025 12:04am Acute CVA (cerebrovascular accident) [facility] 2024 12:04am Obesity (BMI 30-39.9) February 11, [...] 11, 2025 12:04am Acute bacterial bronchitis February 11 025 12:04am Acute CVA (cerebrovascular accident) [facility] 2024 12:04am CVA (cerebral vascular accident) January 182024 12:04am Obesity (BMI 30-39.9) February 11, 2025 1 2:04am Pneumonia February 11, 2025 12: 04am Uncontrolled hypertension February 11 12:04am COPD exacerbation February 11, 2025 12: 04am Chief Complaint Admit Date HYPERTENSIVE URGENCY, CHEST PAIN, ELEVAT ED TROP T July 06, 2025 12:15am Reason for Visit Admit Date Cardiac LV ejection fraction 21-30% Augu 2024 12:15am Chest pain July 06, 2025 12 :15am Diabetes July 06, 2025 12 :15am Elevated troponin July 06, 2025 12 :15am Essential hypertension July 06, 2025 12:15am History of non-ST elevation myocardial i nfarction (NSTEMI) July 06, 2025 12:15am Hyperglycemia due to type 2 diabetes heam litus July 06, 2025 12:15am Hypertensive emergency July 06, 2025 12:15am Ischemic cardiomyopathy July 06 12:15am Leukocytosis July 06, 2025 12 :15am Obesity (BMI 30-39.9) July 06, 2025 12:15am Parotitis July 06, 2025 12 :15am Chief Complaint Admit Date HYPERTENSIVE URGENCY, CHEST PAIN, ELEVAT ED TROP T July 06, 2025 12:15am HYPERTENSIVE URGENCY, CHEST PAIN, ELEVAT ED TROP T July 06, 2025 8:55am HYPERTENSIVE URGENCY, CHEST PAIN, ELEVAT ED TROP T July 06, 2025 11:17am Referral Order July 07, 2025 8: 56am Family History No Family History Records Found [...] April 27, 2022 7 :19am Power of Pc Network Technician No April 27, 2022 7:19am Advance Directive Response Recorded Date/ Time Advance Directives No June 01 2:28pm Living Will No April 27, 2022 1 0:04am Power of Pc Network Technician No April 27, 2022 10:04am Advance Directive Response Recorded Date/ Time Advance Directives No June 01 2:28pm Living Will No June 26, 2022 1:06am Power of Pc Network Technician No June 26 1:06am Advance Directive Response Recorded Date/ Time Advance Directives No June 01 2:28pm Living Will No June 26, 2022 4:53am Power of Pc Network Technician No June 26 4:53am Advance Directive Response Recorded Date/ Time Advance Directives No June 01 1:28pm Living Will No November 21 6:37am Power of Pc Network Technician No November 21 6:37am Advance Directive Response Recorded Date/ Time Advance Directives No June 01 1:28pm Living Will No December 24 12:50pm Power of Pc Network Technician No December 24, 2023 12:50pm Advance Directive Response Recorded Date/ Time Advance Directives No June 01 1:28pm Living Will No December 24 4:35pm Power of Pc Network Technician No December 24, 2023 4:35pm Advance Directive Response Recorded Date/ Time Advance Directives No June 01 2:28pm Living Will No December 24 5:35pm Power of Pc Network Technician No December 24, 2023 5:35pm Advance Directive Response Recorded Date/ Time Living Will No February 10, 2025 6:08pm Do you have a Healthcare Power of Pc Network Technician? No February 10, 2025 6:08pm Advance Directives No June 01 2:28pm Advance Directive Response Recorded Date/ Time Living Will No February 11, 2025 12:38am Do you have a Healthcare Power of Pc Network Technician? No February 11, 2025 12:38am Advance Directives No June 01 2:28pm Advance Directive Response Recorded Date/ Time Do you have a Healthcare Power of Pc Network Technician? No July 05, 2025 8:30pm Advance Directives No June 01 2:28pm Advance Directive Response Recorded Date/ Time Do you have a Healthcare Power of Pc Network Technician? No July 06, 2025 1:49am Advance Directives No June 01 2:28pm Summary [...] Federico Ramirez MD Other Provider Active Start: [facility] 2024 End: February 11, 2025 Dr. Willie [...] Federico Ramirez MD Other Provider Active Start: [facility] [address] Dr. Willie Aguiar MD Other Provider [...] Provider Active Start: February 11, 2025 Dr. Lius Lucero MD Other Provider Active St art: February 11, 2025 Dr. Richard Mills MD Other Provider Active Star t: February 11, 2025 Dr. Herberth Granados MD Other Provider Active St art: February 11, 2025 Dr. Marissa Mars MD Other Provider Active Start: February 11, 2025 Grant Schrader MD Other Provider Active Start: February 11, 2025 Dr. Brennon Juarez DO Attending Provider Active Start: February 11, 2025 Dr. Brennon Juarez DO Other Provider Active Star t: February 11, [...] MD Primary Care Provider Active Hesham Canchola REVENUE AUDIT CLERK, REVENUE AUDIT CLERK-C Attending Provider Active Team Status: Inactive Member Role Status Dates Dr. Beka Bowie MD Primary Care Provider Active Dr. Luis York MD Attending Provider, Emergency Provider Active Team Status: Inactive Member Role Status Dates Dr. Beka Bwoie MD Primary Care Provider Active Dr. Eric [...] Other Prov ider Active Dr. Maldonado Whitt DO Other Provider Active Team Status: Active [...] Flores Morel PA, PA Attending Provider Active Housing Assistant Relationship Specialty Start Date End Date Jamir [address] [place], [place] [id number] PCP - General 03/17/24 Team Status: Active Member Role Status Dates Dr. Beka Bowie MD Primary Care Provider Active Start: February 11, 2025 Dr. Jasbir Curry DO Emergency Provider Active Start: February 11, 2025 Dr. Mitchell Deras DO Admit Provider Active Start: February 11, 2025 Dr. Mitchell Deras DO Attending Provider Active Start: February 11, 2025 Federico Ramirez MD Other Provider Active Start: [facility] [address] Dr. Willie Aguiar MD Other Provider [...] Other Provider Active Start: February 11, 2025 Team Status: Active Member Role/Relationship Status Dates Dr. Beka Bowie MD Primary Care Provider Active Team Status: Active Member Role/Relationship Status Dates Dr. Beka Bowie MD Primary Care Provider Active Start: July 06, 2025 Dr. Brennon Mckeon DO Emergency Provider Active Start: July 06, 2025 Dr. Mitchell Deras DO Admit Provider Active Start: July 06, 2025 Dr. Mitchell Deras DO Attending Provider Active Start: July 06, 2025 Team Status: Active Member Role/Relationship Status Dates Dr. Beka Bowie MD Primary Care Provider Active Start: July 06, 2025 Dr. Brennon Mckeon DO Emergency Provider Active Start: July 06, 2025 Dr. Mitchell Deras DO Admit Provider Active Start: July 06, 2025 Dr. Mitchell Deras DO Other Provider Active Start: July 06, 2025 Dr. Sheyla Ortega MD Attending Provider Active Start: July 06, 2025 Dr. Eric Flores MD Other Provider Active Start : July 06, 2025 Team Status: Active Member Role/Relationship Status Dates Dr. Beka Bowie MD Primary Care Provider Active Start: July 06, 2025 Dr. Brennon Mckeon DO Emergency Provider Active Start: July 06, 2025 Dr. Mitchell Deras DO Admit Provider Active Start: July 06, 2025 Dr. Mitchell Deras DO Other Provider Active Start: July 06, 2025 Dr. Sheyla Ortega MD Attending Provider Active Start: July 06, 2025 Dr. Sheyla Ortega MD Other Provider Active St art: July 06, 2025 Dr. Eric Flores MD Other Provider Active Start : July 06, 2025 Team Status: Active Member Role/Relationship Status Dates Dr. Beka Bowie MD Primary Care Provider Active Start: July 06, 2025 Dr. Brennon Mckeon DO Emergency Provider Active Start: July 06, 2025 Dr. Mitchell Deras DO Admit Provider Active Start: July 06, 2025 Dr. Mitchell Deras DO Other Provider Active Start: July 06, 2025 Dr. Sheyla Ortega MD Other Provider Active St art: July 06, 2025 Dr. Hilda Garrison MD Attending Provider Active S tart: July 06, 2025 Team Status: Active Member Role/Relationship Status Dates Dr. Beka Bowie MD Primary Care Provider Active Start: July 07, 2025 Dr. Eric Flores MD Attending Provider Active S tart: July 07, 2025 Team Status: Inactive Member Role/Relationship Status Dates Dr. Beka Bowie MD Primary Care Provider Active Start: July 06, 2025 End: July 07, 2025 Dr. Brennon Mckeon DO Emergency Provider Active Start: July 06, 2025 End: July 07, 2025 Dr. Mitchell Deras DO Admit Provider Active Start: July 06, 2025 End: July 07, 2025 Dr. Mitchell Deras DO Other Provider Active Start: July 06, 2025 End: July 07, 2025 Dr. Sheyla Ortega MD Attending Provider Active Start: July 06, 2025 End: July 07, 2025 Dr. Eric Flores MD Other Provider Active Start : July 06, 2025 End: July 07, 2025 Source Comments (unrecognize d section and content) In the event this informatio n is protected by the Federal Confidentiality of Alcohol and Drug Abuse Patient Records regulations: The Federal rules restrict any use of the information to criminally investigate or prosecute any alcohol or drug abuse patient.[facility] Reason for Visit (unrecogniz ed section and content) Reason Comments Eye Problem left eye x 2 days, d rainage and matting (unrecognized sect ion and content) No Status Records FoundNo Status Records Found INFORMATION SOURCE (unrecogn ized section and content) DATE CREATED AUTHOR 03/17/2024 [facility] DATE CREATED AUTHOR AUTHOR'S ORGANIZ ATION 09/23/2025 [facility] FOR RECORDS PERTAINING TO PATIENTS WHO [...] BE BASED ON THE PRIMARY CLINICAL RECORDS. [facility]. provides no warranty or guarantee of the accuracy or completeness of information in this document.
[2025-10-05] MEDS: Chlorhexidine 15 ML PO (21:33)
[2025-10-05] MEDS: Insulin Glargine-YFGN 100 UNIT/ML Pen 50 UNIT SC (21:34)
[2025-10-05] MEDS: 0.9% Saline Lock 10 ML Syringe IV (21:36)
[2025-10-05] MEDS: Propofol 10MG/Ml 1,000 MG/100 ML Bottle 12.1 MG CONT INF (21:39)
[2025-10-06] VITALS (29 sets, daily range): BP systolic 88–157; BP diastolic 62–100; PULSE 62–99; RESP 11–27; TEMP 36.6–37.6; O2SAT 81–100; BMI 38.4
[2025-10-06] MEDS: Vancomycin HCl 1,250 MG in 0.9% Normal Saline (250mL Bag) 250 ML 167 MG IV ×2 (00:15→09:13)
[2025-10-06] MEDS: CHLORHEXIDINE GLUC 2% CLOTH 1 EACH TOWELETTE TOPICAL (00:40)
--- NOTE | 2025-10-06 00:44 | NURSING ---
0044 removed patiuents wedding band due to finger swelling. placed silver colored wedding band in a labeled denture cup in the patients locked medicine drawer.
[2025-10-06] MEDS: Amiodarone 360 MG in Dextrose 5% Viaflo Bag 192.8 ML 16.7 MG CONT INF (04:00)
[2025-10-06] MEDS: 0.9% Saline Lock 10 ML Syringe IV (04:11)
[2025-10-06] MEDS: Propofol 10MG/Ml 1,000 MG/100 ML Bottle 15.1 MG CONT INF (04:30)
[2025-10-06 04:34] LABS: Hematocrit 39.2 % (40-54); Hemoglobin 12.9 g/dL (13.0-16.5); Mean Corp Hgb Conc 32.9 g/dL (32-36); Mean Corpuscular Volume 86.9 fL (80-94); Mean Platelet Vol. 11.0 fl (6.2-12.0); Platelet Count 238 K/mm3 (150-450); RBC Distribution Width CV 13.8 % (11.6-14.6); RBC Distribution Width SD 43.8 fl (35.1-43.9); Red Blood Count 4.51 M/mm3 (4.6-6.2); White Blood Count 16.0 K/mm3 (4.4-11.0)
[2025-10-06 04:53] LABS: Cholesterol 179 mg/dL (<=200); Low Density Lipoprotein Calc. 127 mg/dL; Triglycerides 148 mg/dL; Very Low Density Lipoprotein 30 mg/dL (5-40); cholesterol:hdl ratio screen 7.10
[2025-10-06 04:55] LABS: AST(SGOT) 181 U/L (<=37); Alanine Aminotransfer ALT/SGPT 33 U/L (<=46); Albumin, Serum 3.4 g/dL (3.5-5.0); Alkaline Phosphatase 93 U/L (40-129); Anion Gap 11 (5-15); BUN 18 mg/dL (4-19); BUN/Creat Ratio 12.8 RATIO (10-20); Calcium,Total 8.3 mg/dL (7.6-11.0); Carbon Dioxide 24.6 mmol/L (21.0-32.0); Chloride 103 mmol/L (98-108); Estimated Creatinine Clearance 75.78 ml/min (50-250); Globulin 2.6 g/dL (2.2-4.2); Glucose 136 mg/dL (70-99); Potassium 3.4 mmol/L (3.3-5.1)
[2025-10-06] MEDS: Cefepime HCl 1 GM in 0.9% Normal Saline (50mL MB+) 50 ML IV ×3 (05:12→21:48)
[2025-10-06 05:14] LABS: Allen Test Positive; Base Excess 0 mmol/L (-2 to +2); FI02 35.0; PEEP 8; PO2 58 mmHG (75-100); RR 16; SITE L Radial; SO2 90 % (94-98)
--- NOTE | 2025-10-06 05:34 | PCM.PN.INT ---
Assessment & Plan Assessment/Plan (1) Acute respiratory failure with hypoxia and hypercapnia: (2) Coronary artery disease: PLAN: Plan RECOMMENDATIONS: 1. Proceed with a trial of extubation this morning. 2. Once extubated, wean supplemental oxygen to maintain saturations at or above 90%. 3. Continue Atrovent aerosol treatments. 4. Empiric antimicrobials, pending culture results. 5. Continue Lovenox for DVT prophylaxis. 6. Bedside swallow evaluation with dietary advancement as tolerated. 7. Encourage incentive spirometer use and mobilize patient as tolerated. IMPRESSIONS: 1. Acute hypoxemic and hypercapnic respiratory failure in the setting of V-fib cardiac arrest The patient presented to the hospital with several days of shortness of breath and chest discomfort in the setting of a known history of coronary artery disease and ultimately experienced V-fib cardiac arrest which required defibrillation x 2 with eventual ROSC. The patient was ultimately intubated as a consequence of the aforementioned and taken for coronary angiography, where he underwent drug-eluting stent placement to the proximal D1. CTA chest ruled out pulmonary embolism, but did confirm faint ground glass airspace opacities in the posterior lung bases. Accordingly, the will be continued on empiric antimicrobials, pending sputum culture results, along with scheduled Atrovent aerosols. The patient has improved from a respiratory perspective and passed a spontaneous breathing trial this morning. He is alert and appropriately interactive. Therefore, we will proceed with a trial of extubation. Once extubated, wean supplemental oxygen to maintain saturations at or above 90%. Perform bedside swallow evaluation with dietary advancement as tolerated. Encourage incentive spirometer use and mobilize patient as tolerated. 2. History of ischemic cardiomyopathy/COPD/hypertension/hyperlipidemia/diabetes mellitus/tobacco abuse history Complicates care, management, recovery and prognosis. Continue supportive measures as noted above. TIME: 38 minutes of critical care time, independent of procedures, was spent addressing the patient's acute respiratory failure, V-fib cardiac arrest, review of all data and collaboration with the care team. Subjective Subjective The patient was seen and examined at the bedside this morning. Events from the last 24 hours have been reviewed. The patient currently has a low-grade fever but remains otherwise hemodynamically stable on assist-control mode mechanical ventilation with an FiO2 requirement of 40% and PEEP of 5. The patient underwent coronary angiography yesterday with drug-eluting stent placement to the proximal D1. White blood cell count this morning is elevated 16,000. Arterial blood gas was notable for a pH of 7.41 with a pCO2 of 38 and pO2 of 58. Creatinine is increased at 1.37. Following my initial evaluation of the patient this morning, his sedation was placed on hold. The patient completed a spontaneous awakening trial. Accordingly, he proceeded with completing a spontaneous breathing trial, which was uncomplicated. The patient was therefore extubated. Objective Data Objective Data The patient's most recent lab work, culture data and imaging studies have all been personally reviewed. Surface echocardiogram demonstrated moderately severe segmental systolic dysfunction with an ejection fraction of 35%. Pulmonary artery systolic pressure was estimated to be 47 mmHg. Blood and sputum cultures are pending. Vital Signs: Vital Signs Temp Pulse Resp BP Pulse Ox O2 Del Method O2 Flow Rate 99.5 F H 67 16 110/73 97 Mechanical Ventilator 6 10/06/25 02:00 10/06/25 04:00 10/06/25 04:00 10/06/25 04:00 10/06/25 04:00 10/06/25 04:00 10/05/25 08:30 FiO2 35 10/06/25 04:00 Oxygen Flow Rate (L/min) 6 Oxygen Delivery Method Mechanical Ventilator Weight: 252 lb 13.923 oz Body Mass Index (BMI) 38.4 Intake & Output: Intake and Output for Last 24 Hours 10/04/25 10/05/25 10/06/25 23:59 23:59 23:59 Intake Total 4276.05 / 4293.15 539.23 / 539.23 Output Total 2045 / 2120 75 / 75 Balance 2231.05 / 2173.15 464.23 / 464.23 Lab / Micro Data Attestation: I reviewed the patient's lab results. 10/06/25 04:10 10/06/25 04:10 Labs: Laboratory Results - last 24 hr 10/05/25 08:13: WBC 16.1 H, RBC 5.84, Hgb 16.9 H, Hct 51.3, MCV 87.8, MCH 28.9, MCHC 32.9, RDW Std Deviation 42.7, RDW Coeff of Narcisa 13.3, Plt Count 313, MPV 10.7, Immature Gran % (Auto) 0.300, Neut % (Auto) 49.3, Lymph % (Auto) 38.3, Tift % (Auto) 9.5, Eos % (Auto) 2.0, Baso % (Auto) 0.6, Absolute Neuts (auto) 7.9 H, Absolute Lymphs (auto) 6.18 H, Nucleated RBC % 0, Reactive Lymphocytes 3+, PT 12.8, INR 0.9, APTT 24.1, Sodium 144, Potassium 4.5, Chloride 104, Carbon Dioxide 24.0, Anion Gap 15, BUN 10, Creatinine 0.94, Estim Creat Clear Calc 103.43, Est GFR (MDRD) Non-Af 96, BUN/Creatinine Ratio 10.3, Glucose 210 H, Calcium 9.7, Magnesium 2.1, Troponin T High Sens 19, NT pro BNP II 826, TSH 4.120 10/05/25 08:54: Lactic Acid 2.3 H* 10/05/25 09:01: Urine Color Straw, Urine Clarity Clear, Urine pH 6.5, Ur Specific [place] 1.010, Urine Protein 30 H, Urine Glucose (UA) 1000 H, Urine Ketones Negative, Urine Occult Blood 10 H, Urine Nitrite Negative, Urine Bilirubin Negative, Urine Urobilinogen Normal, Ur Leukocyte Esterase Negative, Urine RBC 0 SEEN, Urine WBC 0 SEEN, Ur Squamous Epith Cells 0 SEEN, Urine Bacteria 0 SEEN, Urine Mucus 0 SEEN 10/05/25 10:07: Troponin T Hi Sens 2 Hr 41 H 10/05/25 13:43: Lactic Acid 1.1 10/05/25 14:43: Activated Clotting Time 184 H 10/05/25 14:57: Total Creatine Kinase 772 H, Troponin T Hi Sens 4Hr 888 H*, Triglycerides 119 10/05/25 18:11: POC Glucose 201 H 10/05/25 23:27: POC Glucose 150 H 10/06/25 04:10: WBC 16.0 H, RBC 4.51 L, Hgb 12.9 L, Hct 39.2 L, MCV 86.9, MCH 28.6, MCHC 32.9, RDW Std Deviation 43.8, RDW Coeff of Narcisa 13.8, Plt Count 238, MPV 11.0, Sodium 139, Potassium 3.4, Chloride 103, Carbon Dioxide 24.6, Anion Gap 11, BUN 18, Creatinine 1.37 H, Estim Creat Clear Calc 75.78, Est GFR (MDRD) Non-Af 61, BUN/Creatinine Ratio 12.8, Glucose 136 H, Hemoglobin A1c 9.5 H, Calcium 8.3, Total Bilirubin 0.50, AST 181 H, ALT 33, Alkaline Phosphatase 93, Total Protein 6.0, Albumin 3.4 L, Globulin 2.6, Albumin/Globulin Ratio 1.3, Triglycerides 148, Cholesterol 179, LDL Cholesterol, Calc 127, VLDL Cholesterol 30, HDL Cholesterol 25 L, Cholesterol/HDL Ratio 7.10 Micro: Microbiology 10/05/25 16:35 Nasal Secretion MRSA (PCR) - Final 10/05/25 16:35 Mucosa - Nasopharyngeal Coronavirus COVID-19 PCR - Final 10/05/25 14:25 Mucosa - Nasopharyngeal Respiratory Panel (PCR) - Final 10/05/25 08:50 Sputum, Induced/Lukens Gram Stain - Final ABG Data ABG results: ABG 10/05/25 10/05/25 10/05/25 09:19 10:42 15:47 Specimen Type ART ART ART Sample Site R Radial R Radial Not entered pH 7.16 L* 7.25 L 7.42 Bicarbonate Actual 28.6 H 28.7 H 31.6 H Total CO2 31 31 33 Base Excess 0 1 7 H O2 Saturation 91 L 94 97 O2 % 75.0 65.0 ABG pCO2 80.4 H* 65.9 H 48.5 H ABG pO2 82 83 87 [place] Test Positive Positive Respiration Rate 14 16 O2 Delivery Device Adult Vent Adult Vent Not entered Vent Mode AC AC Not entered Tidal Volume 450.0 500.0 POC PEEP 8 8 Crit Call To/Read Back Yes Blood Gas Notified Whom klusty Blood Gas Notified Time 09:21:26 10/06/25 05:10 Specimen Type ART Sample Site L Radial pH 7.41 Bicarbonate Actual 24.4 Total CO2 26 Base Excess 0 O2 Saturation 90 L O2 % 35.0 ABG pCO2 38.6 ABG pO2 58 L [place] Test Positive Respiration Rate 16 O2 Delivery Device Adult Vent Vent Mode ACVC + Tidal Volume 500.0 POC PEEP 8 Crit Call To/Read Back Blood Gas Notified Whom Blood Gas Notified Time Radiography Diagnostic Testing: Radiology Impression Chest X-Ray 10/05/25 08:10 IMPRESSION: There is cardiomegaly with mild central vascular congestion and increased interstitial markings consistent with CHF. [facility]A 10/05/25 08:11 IMPRESSION: No evidence of pulmonary embolism. Coronary artery calcification. An enteric tube is seen within the stomach. Endotracheal tube within the trachea. Patchy infiltrates as described. Findings suggestive of mild degree of CHF. Reading Location: [id number] Chest X-Ray 10/05/25 08:43 IMPRESSION: As above. Reading Location: [id number] Chest X-Ray 10/05/25 08:43 IMPRESSION: There is an ET tube in position with its tip 9 cm above the level of the marilee. There is an enteric tube seen with its tip in the stomach. There is cardiomegaly with prominent central vascular markings and increased interstitial markings consistent with CHF. [facility] 10/05/25 08:50 IMPRESSION: No acute intracranial CT abnormality. Reading Location: [id number] Echocardiogram 10/05/25 11:33 Interpretation Summary The left ventricular ejection fraction is 35 %. Moderate assymetric septal hypertrophy. Moderately severe segmental systolic dysfunction (see wall motion). Mild (1+) mitral valve insufficiency. Mild (1+) tricuspid valve insufficiency. Ordering Physician: Luis Villeda Referring Physician: Sivna Bowie Performed By: Ioana Gu RDCS Chest X-Ray 10/05/25 13:25 IMPRESSION: ETT tip is 6 cm above the marilee. NG tube tip in the body of the stomach No acute pulmonary process Reading Location: [facility] Physical Exam Const Constitutional Narrative: Intubated and mechanically ventilated. HEENT normocephalic and head/scalp atraumatic Mouth: endotracheal tube in place Eyes EOMs intact bilaterally and conjunctivae normal Neck supple General: trachea midline Chest inspection of chest normal Resp Auscultation: diminished lung sounds; Negative for rales, rhonchi or wheezes Cardio regular rate, regular rhythm, S1 normal heart sound and S2 normal heart sound GI normal to inspection, nondistended, normoactive bowel sounds Extremity no clubbing, cyanosis or edema Skin no rashes or lesions noted Neuro Neuro Narrative: Alert and able to follow simple commands appropriately. Psych Activity / Motor Behavior: restless Charges/Coding Procedures Hospitalists Procedures: 25186 Critical Care 1st Hr
--- NOTE | 2025-10-06 05:49 | EKG12_ITS ---
Test Reason : post cath Blood Pressure : */* mmHG Vent. Rate : 71 BPM Atrial Rate : 71 BPM P-R Int : 200 ms QRS Dur : 104 ms QT Int : 490 ms P-R-T Axes : 69 40 34 degrees QTcB Int : 532 ms Normal sinus rhythm Possible Left atrial enlargement Anterior infarct , age undetermined Prolonged QT Abnormal ECG When compared with ECG of 05-Oct-2025 09:14, MANUAL COMPARISON REQUIRED DATA IS UNCONFIRMED Confirmed by BIRGIT EVANGELISTA, GENE ([id number]), assistant editor TESS PERRY ([id number]) on 10/07/2025 6:41:15 AM Referred By: Larry Confirmed By: GNEE GENAO MD
[2025-10-06] MEDS: fentaNYL drip 100 ML 7.5 MCG CONT INF (06:01)
--- NOTE | 2025-10-06 06:43 | PCM.PN.CARD ---
Subjective Subjective Patient seen and evaluated. Still intubated. No arrhythmias overnight. Objective Data Vital Signs: Vital Signs Temp Pulse Resp BP Pulse Ox O2 Del Method O2 Flow Rate 99.5 F H 71 16 98/67 96 Mechanical Ventilator 6 10/06/25 02:00 10/06/25 06:00 10/06/25 06:00 10/06/25 06:00 10/06/25 06:00 10/06/25 06:00 10/05/25 08:30 FiO2 40 10/06/25 06:00 Oxygen Flow Rate (L/min) 6 Oxygen Delivery Method Mechanical Ventilator Weight: 252 lb 13.923 oz Body Mass Index (BMI) 38.4 Intake & Output: Intake and Output for Last 24 Hours 10/04/25 10/05/25 10/06/25 23:59 23:59 23:59 Intake Total 4276.05 / 4293.15 611.39 / 611.39 Output Total 2045 / 2120 175 / 175 Balance 2231.05 / 2173.15 436.39 / 436.39 Lab / Micro Data 10/06/25 04:10 10/06/25 04:10 Labs: Laboratory Results - last 24 hr 10/05/25 08:13: WBC 16.1 H, RBC 5.84, Hgb 16.9 H, Hct 51.3, MCV 87.8, MCH 28.9, MCHC 32.9, RDW Std Deviation 42.7, RDW Coeff of Narcisa 13.3, Plt Count 313, MPV 10.7, Immature Gran % (Auto) 0.300, Neut % (Auto) 49.3, Lymph % (Auto) 38.3, Ramsey % (Auto) 9.5, Eos % (Auto) 2.0, Baso % (Auto) 0.6, Absolute Neuts (auto) 7.9 H, Absolute Lymphs (auto) 6.18 H, Nucleated RBC % 0, Reactive Lymphocytes 3+, PT 12.8, INR 0.9, APTT 24.1, Sodium 144, Potassium 4.5, Chloride 104, Carbon Dioxide 24.0, Anion Gap 15, BUN 10, Creatinine 0.94, Estim Creat Clear Calc 103.43, Est GFR (MDRD) Non-Af 96, BUN/Creatinine Ratio 10.3, Glucose 210 H, Calcium 9.7, Magnesium 2.1, Troponin T High Sens 19, NT pro BNP II 826, TSH 4.120 10/05/25 08:54: Lactic Acid 2.3 H* 10/05/25 09:01: Urine Color Straw, Urine Clarity Clear, Urine pH 6.5, Ur Specific [place] 1.010, Urine Protein 30 H, Urine Glucose (UA) 1000 H, Urine Ketones Negative, Urine Occult Blood 10 H, Urine Nitrite Negative, Urine Bilirubin Negative, Urine Urobilinogen Normal, Ur Leukocyte Esterase Negative, Urine RBC 0 SEEN, Urine WBC 0 SEEN, Ur Squamous Epith Cells 0 SEEN, Urine Bacteria 0 SEEN, Urine Mucus 0 SEEN 10/05/25 10:07: Troponin T Hi Sens 2 Hr 41 H 10/05/25 13:43: Lactic Acid 1.1 10/05/25 14:43: Activated Clotting Time 184 H 10/05/25 14:57: Total Creatine Kinase 772 H, Troponin T Hi Sens 4Hr 888 H*, Triglycerides 119 10/05/25 18:11: POC Glucose 201 H 10/05/25 23:27: POC Glucose 150 H 10/06/25 04:10: WBC 16.0 H, RBC 4.51 L, Hgb 12.9 L, Hct 39.2 L, MCV 86.9, MCH 28.6, MCHC 32.9, RDW Std Deviation 43.8, RDW Coeff of Narcisa 13.8, Plt Count 238, MPV 11.0, Sodium 139, Potassium 3.4, Chloride 103, Carbon Dioxide 24.6, Anion Gap 11, BUN 18, Creatinine 1.37 H, Estim Creat Clear Calc 75.78, Est GFR (MDRD) Non-Af 61, BUN/Creatinine Ratio 12.8, Glucose 136 H, Hemoglobin A1c 9.5 H, Calcium 8.3, Total Bilirubin 0.50, AST 181 H, ALT 33, Alkaline Phosphatase 93, Total Protein 6.0, Albumin 3.4 L, Globulin 2.6, Albumin/Globulin Ratio 1.3, Triglycerides 148, Cholesterol 179, LDL Cholesterol, Calc 127, VLDL Cholesterol 30, HDL Cholesterol 25 L, Cholesterol/HDL Ratio 7.10 10/06/25 05:23: POC Glucose 144 H Micro: Microbiology 10/05/25 16:35 Nasal Secretion MRSA (PCR) - Final 10/05/25 16:35 Mucosa - Nasopharyngeal Coronavirus COVID-19 PCR - Final 10/05/25 14:25 Mucosa - Nasopharyngeal Respiratory Panel (PCR) - Final 10/05/25 08:50 Sputum, Induced/Lukens Gram Stain - Final ABG Data ABG results: ABG 10/05/25 10/05/25 10/05/25 09:19 10:42 15:47 Specimen Type ART ART ART Sample Site R Radial R Radial Not entered pH 7.16 L* 7.25 L 7.42 Bicarbonate Actual 28.6 H 28.7 H 31.6 H Total CO2 31 31 33 Base Excess 0 1 7 H O2 Saturation 91 L 94 97 O2 % 75.0 65.0 ABG pCO2 80.4 H* 65.9 H 48.5 H ABG pO2 82 83 87 [place] Test Positive Positive Respiration Rate 14 16 O2 Delivery Device Adult Vent Adult Vent Not entered Vent Mode AC AC Not entered Tidal Volume 450.0 500.0 POC PEEP 8 8 Crit Call To/Read Back Yes Blood Gas Notified Whom klusty Blood Gas Notified Time 09:21:26 10/06/25 05:10 Specimen Type ART Sample Site L Radial pH 7.41 Bicarbonate Actual 24.4 Total CO2 26 Base Excess 0 O2 Saturation 90 L O2 % 35.0 ABG pCO2 38.6 ABG pO2 58 L [place] Test Positive Respiration Rate 16 O2 Delivery Device Adult Vent Vent Mode ACVC + Tidal Volume 500.0 POC PEEP 8 Crit Call To/Read Back Blood Gas Notified Whom Blood Gas Notified Time Cardiology Labs/Tests 10/05/25 08:13: WBC 16.1 H, RBC 5.84, Hgb 16.9 H, Hct 51.3, MCV 87.8, MCH 28.9, MCHC 32.9, Plt Count 313, MPV 10.7, Immature Gran % (Auto) 0.300, Neut % (Auto) 49.3, Lymph % (Auto) 38.3, [place] % (Auto) 9.5, Eos % (Auto) 2.0, Baso % (Auto) 0.6, Absolute Neuts (auto) 7.9 H, Nucleated RBC % 0, PT 12.8, INR 0.9, APTT 24.1, Sodium 144, Potassium 4.5, Chloride 104, Carbon Dioxide 24.0, Anion Gap 15, BUN 10, Creatinine 0.94, Est GFR (MDRD) Non-Af 96, BUN/Creatinine Ratio 10.3, Glucose 210 H, Calcium 9.7, Magnesium 2.1 10/05/25 08:54: Lactic Acid 2.3 H* 10/05/25 09:01: Urine Color Straw, Urine Clarity Clear, Urine pH 6.5, Ur Specific [place] 1.010, Urine Protein 30 H, Urine Glucose (UA) 1000 H, Urine Ketones Negative, Urine Occult Blood 10 H, Urine Nitrite Negative, Urine Bilirubin Negative, Urine Urobilinogen Normal, Ur Leukocyte Esterase Negative, Urine RBC 0 SEEN, Urine WBC 0 SEEN 10/05/25 09:19: pH 7.16 L*, Bicarbonate Actual 28.6 H, Base Excess 0, O2 Saturation 91 L, ABG pCO2 80.4 H*, ABG pO2 82, [place] Test Positive 10/05/25 10:42: pH 7.25 L, Bicarbonate Actual 28.7 H, Base Excess 1, O2 Saturation 94, ABG pCO2 65.9 H, ABG pO2 83, [place] Test Positive 10/05/25 13:43: Lactic Acid 1.1 10/05/25 14:57: Triglycerides 119 10/05/25 15:47: pH 7.42, Bicarbonate Actual 31.6 H, Base Excess 7 H, O2 Saturation 97, ABG pCO2 48.5 H, ABG pO2 87 10/06/25 04:10: WBC 16.0 H, RBC 4.51 L, Hgb 12.9 L, Hct 39.2 L, MCV 86.9, MCH 28.6, MCHC 32.9, Plt Count 238, MPV 11.0, Sodium 139, Potassium 3.4, Chloride 103, Carbon Dioxide 24.6, Anion Gap 11, BUN 18, Creatinine 1.37 H, Est GFR (MDRD) Non-Af 61, BUN/Creatinine Ratio 12.8, Glucose 136 H, Hemoglobin A1c 9.5 H, Calcium 8.3, Total Bilirubin 0.50, Triglycerides 148, Cholesterol 179, VLDL Cholesterol 30, HDL Cholesterol 25 L, Cholesterol/HDL Ratio 7.10 10/06/25 05:10: pH 7.41, Bicarbonate Actual 24.4, Base Excess 0, O2 Saturation 90 L, ABG pCO2 38.6, ABG pO2 58 L, [place] Test Positive Rhythm: EKG: ECHO: Stress Test: Cardiac Cath: PCI: CT Surgery: Holter monitor: EPS: PPM: CXR: Chest CT Scan: Radiography Diagnostic Testing: Radiology Impression Chest X-Ray 10/05/25 08:10 IMPRESSION: There is cardiomegaly with mild central vascular congestion and increased interstitial markings consistent with CHF. Reading Location: [facility] Chest CTA 10/05/25 08:11 IMPRESSION: No evidence of pulmonary embolism. Coronary artery calcification. An enteric tube is seen within the stomach. Endotracheal tube within the trachea. Patchy infiltrates as described. Findings suggestive of mild degree of CHF. Reading Location: [id number] Chest X-Ray 10/05/25 08:43 IMPRESSION: As above. Reading Location: [id number] Chest X-Ray 10/05/25 08:43 IMPRESSION: There is an ET tube in position with its tip 9 cm above the level of the marilee. There is an enteric tube seen with its tip in the stomach. There is cardiomegaly with prominent central vascular markings and increased interstitial markings consistent with CHF. Reading Location: [facility] Brain CT 10/05/25 08:50 IMPRESSION: No acute intracranial CT abnormality. Reading Location: [id number] Echocardiogram 10/05/25 11:33 Interpretation Summary The left ventricular ejection fraction is 35 %. Moderate assymetric septal hypertrophy. Moderately severe segmental systolic dysfunction (see wall motion). Mild (1+) mitral valve insufficiency. Mild (1+) tricuspid valve insufficiency. Ordering Physician: Luis Villeda Referring Physician: Sivan Bowie Performed By: Ioana Gu [facility] Chest X-Ray 10/05/25 13:25 IMPRESSION: ETT tip is 6 cm above the marilee. NG tube tip in the body of the stomach No acute pulmonary process Reading Location: [facility] Physical Exam Const Constitutional Narrative: Intubated and sedated. HEENT HEENT Narrative: ET tube and OG tube in place Resp Resp Narrative: On ventilator. Cardio regular rate, regular rhythm, S1 normal heart sound and S2 normal heart sound GI normal to inspection, nondistended, normoactive bowel sounds, soft to palpation, non-tender and non-distended Extremity normal to inspection and full ROM Neuro Neuro Narrative: No clonus. Withdraws to noxious stimuli. Assessment & Plan Assessment/Plan (1) Cardiac arrest with ventricular fibrillation: PLAN: Extensive history of coronary artery disease. He underwent multivessel PCI and currently is doing well. Echocardiogram demonstrates reduced left ventricular ejection fraction. (2) Left ventricular systolic dysfunction (LVSD): PLAN: Has a history of left ventricular systolic dysfunction with estimated ejection fraction of 35% and segmental wall motion abnormalities. Will consider an ICD but we will see how her left ventricular function improves over the next few weeks. (3) Hypertension: PLAN: He does have a history of noncompliance. Medications have been resumed with a beta-israel Reduce MIO inhibitor and resume the above and titrate upwards as appropriate (4) Dyslipidemia: PLAN: High intensity statins statins. (5) Nicotine dependence: QUALIFIERS: Nicotine product type: cigarettes Substance use status: uncomplicated Qualified Code(s): F17.210 - Nicotine dependence, cigarettes, uncomplicated PLAN: Quit smoking.
--- NOTE | 2025-10-06 06:55 | PCM.PN.HOSP ---
Reason for Visit Chief Complaint: Chest pain Subjective Subjective Extubated. Complaining of back pain. No chest pain. Objective Data Objective Data Vital Signs: Vital Signs Temp Pulse Resp BP Pulse Ox O2 Del Method O2 Flow Rate 37.5 C H 71 16 98/67 96 Mechanical Ventilator 6 10/06/25 02:00 10/06/25 06:00 10/06/25 06:00 10/06/25 06:00 10/06/25 06:00 10/06/25 06:00 10/05/25 08:30 FiO2 40 10/06/25 06:00 Oxygen Flow Rate (L/min) 6 Oxygen Delivery Method Mechanical Ventilator Weight: 114.7 kg Body Mass Index (BMI) 38.4 Intake & Output: Intake and Output for Last 24 Hours 10/04/25 10/05/25 10/06/25 23:59 23:59 23:59 Intake Total 4276.05 / 4293.15 611.39 / 611.39 Output Total 2045 / 2120 175 / 175 Balance 2231.05 / 2173.15 436.39 / 436.39 Lab / Micro Data 10/06/25 04:10 10/06/25 04:10 Labs: Laboratory Results - last 24 hr 10/05/25 08:13: WBC 16.1 H, RBC 5.84, Hgb 16.9 H, Hct 51.3, MCV 87.8, MCH 28.9, MCHC 32.9, RDW Std Deviation 42.7, RDW Coeff of Narcisa 13.3, Plt Count 313, MPV 10.7, Immature Gran % (Auto) 0.300, Neut % (Auto) 49.3, Lymph % (Auto) 38.3, [place]ain % (Auto) 9.5, Eos % (Auto) 2.0, Baso % (Auto) 0.6, Absolute Neuts (auto) 7.9 H, Absolute Lymphs (auto) 6.18 H, Nucleated RBC % 0, Reactive Lymphocytes 3+, PT 12.8, INR 0.9, APTT 24.1, Sodium 144, Potassium 4.5, Chloride 104, Carbon Dioxide 24.0, Anion Gap 15, BUN 10, Creatinine 0.94, Estim Creat Clear Calc 103.43, Est GFR (MDRD) Non-Af 96, BUN/Creatinine Ratio 10.3, Glucose 210 H, Calcium 9.7, Magnesium 2.1, Troponin T High Sens 19, NT pro BNP II 826, TSH 4.120 10/05/25 08:54: Lactic Acid 2.3 H* 10/05/25 09:01: Urine Color Straw, Urine Clarity Clear, Urine pH 6.5, Ur Specific [place] 1.010, Urine Protein 30 H, Urine Glucose (UA) 1000 H, Urine Ketones Negative, Urine Occult Blood 10 H, Urine Nitrite Negative, Urine Bilirubin Negative, Urine Urobilinogen Normal, Ur Leukocyte Esterase Negative, Urine RBC 0 SEEN, Urine WBC 0 SEEN, Ur Squamous Epith Cells 0 SEEN, Urine Bacteria 0 SEEN, Urine Mucus 0 SEEN 10/05/25 10:07: Troponin T Hi Sens 2 Hr 41 H 10/05/25 13:43: Lactic Acid 1.1 10/05/25 14:43: Activated Clotting Time 184 H 10/05/25 14:57: Total Creatine Kinase 772 H, Troponin T Hi Sens 4Hr 888 H*, Triglycerides 119 10/05/25 18:11: POC Glucose 201 H 10/05/25 23:27: POC Glucose 150 H 10/06/25 04:10: WBC 16.0 H, RBC 4.51 L, Hgb 12.9 L, Hct 39.2 L, MCV 86.9, MCH 28.6, MCHC 32.9, RDW Std Deviation 43.8, RDW Coeff of Narcisa 13.8, Plt Count 238, MPV 11.0, Sodium 139, Potassium 3.4, Chloride 103, Carbon Dioxide 24.6, Anion Gap 11, BUN 18, Creatinine 1.37 H, Estim Creat Clear Calc 75.78, Est GFR (MDRD) Non-Af 61, BUN/Creatinine Ratio 12.8, Glucose 136 H, Hemoglobin A1c 9.5 H, Calcium 8.3, Total Bilirubin 0.50, AST 181 H, ALT 33, Alkaline Phosphatase 93, Total Protein 6.0, Albumin 3.4 L, Globulin 2.6, Albumin/Globulin Ratio 1.3, Triglycerides 148, Cholesterol 179, LDL Cholesterol, Calc 127, VLDL Cholesterol 30, HDL Cholesterol 25 L, Cholesterol/HDL Ratio 7.10 10/06/25 05:23: POC Glucose 144 H Micro: Microbiology 10/05/25 16:35 Nasal Secretion MRSA (PCR) - Final 10/05/25 16:35 Mucosa - Nasopharyngeal Coronavirus COVID-19 PCR - Final 10/05/25 14:25 Mucosa - Nasopharyngeal Respiratory Panel (PCR) - Final 10/05/25 08:50 Sputum, Induced/Lukens Gram Stain - Final ABG Data ABG results: ABG 10/05/25 10/05/25 10/05/25 09:19 10:42 15:47 Specimen Type ART ART ART Sample Site R Radial R Radial Not entered pH 7.16 L* 7.25 L 7.42 Bicarbonate Actual 28.6 H 28.7 H 31.6 H Total CO2 31 31 33 Base Excess 0 1 7 H O2 Saturation 91 L 94 97 O2 % 75.0 65.0 ABG pCO2 80.4 H* 65.9 H 48.5 H ABG pO2 82 83 87 [place] Test Positive Positive Respiration Rate 14 16 O2 Delivery Device Adult Vent Adult Vent Not entered Vent Mode AC AC Not entered Tidal Volume 450.0 500.0 POC PEEP 8 8 Crit Call To/Read Back Yes Blood Gas Notified Whom klusty Blood Gas Notified Time 09:21:26 10/06/25 05:10 Specimen Type ART Sample Site L Radial pH 7.41 Bicarbonate Actual 24.4 Total CO2 26 Base Excess 0 O2 Saturation 90 L O2 % 35.0 ABG pCO2 38.6 ABG pO2 58 L [place] Test Positive Respiration Rate 16 O2 Delivery Device Adult Vent Vent Mode ACVC + Tidal Volume 500.0 POC PEEP 8 Crit Call To/Read Back Blood Gas Notified Whom Blood Gas Notified Time Radiography Diagnostic Testing: Radiology Impression Chest X-Ray 10/05/25 08:10 IMPRESSION: There is cardiomegaly with mild central vascular congestion and increased interstitial markings consistent with CHF. [facility] 10/05/25 08:11 IMPRESSION: No evidence of pulmonary embolism. Coronary artery calcification. An enteric tube is seen within the stomach. Endotracheal tube within the trachea. Patchy infiltrates as described. Findings suggestive of mild degree of CHF. Reading Location: [id number] Chest X-Ray 10/05/25 08:43 IMPRESSION: As above. Reading Location: [id number] Chest X-Ray 10/05/25 08:43 IMPRESSION: There is an ET tube in position with its tip 9 cm above the level of the marilee. There is an enteric tube seen with its tip in the stomach. There is cardiomegaly with prominent central vascular markings and increased interstitial markings consistent with CHF. Reading Location: [id number] Brain CT 10/05/25 08:50 IMPRESSION: No acute intracranial CT abnormality. Reading Location: [id number] Echocardiogram 10/05/25 11:33 Interpretation Summary The left ventricular ejection fraction is 35 %. Moderate assymetric septal hypertrophy. Moderately severe segmental systolic dysfunction (see wall motion). Mild (1+) mitral valve insufficiency. Mild (1+) tricuspid valve insufficiency. Ordering Physician: Luis Villeda Referring Physician: Sivan Bowie Performed By: Ioana Gu, [facility] Chest X-Ray 10/05/25 13:25 IMPRESSION: ETT tip is 6 cm above the marilee. NG tube tip in the body of the stomach No acute pulmonary process Reading Location: [id number] Physical Exam Const Constitutional Narrative: Up in chair. No respiratory distress. On room air. HEENT head/scalp atraumatic and moist oral mucous membranes Resp normal respiratory effort, no retractions, no use of accessory muscles and clear to auscultation bilaterally Cardio regular rate, regular rhythm, S1 normal heart sound and S2 normal heart sound GI normal to inspection, nondistended, normoactive bowel sounds and soft to palpation Extremity normal to inspection and full ROM Neuro Sensorium / Orientation: awake and alert Assessment & Plan Assessment/Plan (1) Acute hypercapnic respiratory failure: PLAN: Resolved Admission PaCO2 of 65.9. Patient to events of cardiac arrest and patient intubated per the emergency room physician due to the cardiac arrest. Intubated 10/05, extubated 10/06. Critical care medicine contacted and actively involved in his care. CT of the chest concerning for ground glass opacities. Pneumonia or pulmonary vascular congestion noted. On empiric antibiotics with cefepime and vancomycin. (2) NSTEMI, initial episode of care: PLAN: Patient has a diagonal lesion. Discussed with Dr. Villeda, this was not a STEMI. Troponins up to 888. On aspirin, clopidogrel. Continue with carvedilol, will MIO inhibitor as blood pressure allows. (3) Cardiac arrest with ventricular fibrillation: PLAN: Likely secondary to the non-STEMI with the diagonal lesion. Patient was on amiodarone drip shortly after the ROSC Amiodarone drip started in the ED. Continue monitoring on telemetry. (4) Lactic acidosis: PLAN: Secondary to above and currently resolved. No additional workup at this time. PLAN: Plan HFrEF: CT findings more consistent with pulm vascular congestion with pleural effusions within the fissures. Ideally like to aggressively diurese him but his pressure may prohibit that at this time particular with him being on propofol. Echo shows an EF 35% w moderate asymmetric septal hypertrophy. Hypertensive urgency: Present on arrival. Patient was on nitroglycerin drip to help with that blood pressure has since improved bigger since he has had propofol. Continue with antihypertensives but hold parameters for systolic less than 100. Diabetes mellitus type 2: Received glargine 50 last night. Sliding scale insulin. A1c 9.5. VTE prophylaxis with enoxaparin DW patient and his family at bedside. Charges/Coding Visit Charges Inpatient E&M: 92470 Subs Hosp L2
[2025-10-06] MEDS: Ipratropium 0.5 MG/2.5 ML SOLUTION INHALATION ×4 (07:02→20:15)
--- NOTE | 2025-10-06 11:15 | NURSING ---
pt ripped off bp cuff and refusing to wear at this time, educated he has just had a major heart attack and the bp cuff will have to go back on bp checked periodically. pt has made several comments so far after being extubated about giving him discharge papers.
--- NOTE | 2025-10-06 12:39 | CASEMGMT ---
VETO LUBIN Assessment Face to Face with patient for initial transition planning/care coordination assessment. RN TRISTIAN introduced self and role at [facility], pt voices understanding. Pt is A&Ox4 and is resting comfortably in the chair and is calm. Pt @ the bedside. Care providers, pharmacy, and demographics verified. Admitting dx: V-Fib LACE Strata: 3 PCP: Jamir Specialists: Song (Pulmonary), King CHAPA (Endocrinology) Preferred Pharmacy: [facility] at the time of DC. Follow for P2Y Rx. Pt informed that it is preferred to see the pt have the rx in hand before leaving the hospital. Insurance: SP. Gordon (Pt financial accounting analyst) has seen the pt to apply for [facility]. Prescription Benefit: None. Pt is educated about Good Rx. CM to follow Rx costs @ DC. LNOK: Cassia Morrison (W) Living Arrangements: Pt lives with his in a 2 story apartment with a flat entrance ADLs/IADLs: Pt reports that he is completely independent Transportation: Self, . Denies concerns DME: Pt reports that he has a functioning BGM with sufficient supplies including lancets, EtOH swabs, test strips, and pen needles for insulin shots. Pt also states that he has a nebulizer but is low on his Albuterol Rx and is requesting a new rx for more. Hospitalist notified. HHC/SNF: Denies Hx or needs Pt?s goal: Home Plan: Home, follow Rx costs @ DC. Pt denies the need for any form of home care or OP therapy. Pt states that he feels safe returning home with his once he is medically ready and denies further questions or concerns at this time. CM to follow. Wu Fernando RN, CM
--- NOTE | 2025-10-06 14:00 | CASEMGMT ---
Social Work SW met w/pt and , as pt does not have insurance. He did speak w/Heidi from [employer] earlier today. SW provided resources to pt and including food pantries, [facility] assist, Yesica Fritz, [employer], [employer], Prescription assistance programs, and [facility] information. SW remains available for any additional resources needed. CECILIA Thakur
--- NOTE | 2025-10-06 15:00 | CRPHASE1 ---
Patient Communication Patient Information Former Patient:: Phase I PHII Cardiac Rehab Discussed with Patient:: Yes Guide to Cardiac Rehab Given to Patient:: Yes Cardiac Rehab Facility Choice List Given to Patient:: Yes Communication to Cardiac Rehab Choice Program [facility] CR PHII:: Communication Given to CR Pencil Maker:: Luis Villeda Phase II Cardiac Rehab:: Yes Sessions:: 36 sessions - 3 days/wk, 12 weeks Cardiac Rehabilitation Info Program Information Cardiac Rehabilitation Program Information: Cardiac Rehab The cardiac rehab team at [facility] consists of highly skilled exercise physiologists, nurses, respiratory therapists and physicians working together with you. Our purpose is to help you have a full recovery and achieve the goals you set for yourself. Over the years many of our patients have returned to activities they assumed they would never do again! We can help restore your confidence and motivation to make lifestyle changes that can have a significant impact on your health and quality of life! We can help answer questions and concerns you may have about exercise, lifestyle, medications, diet, stress and anxiety which are common following a hospitalization. WE monitor ECG and vital signs during exercise and discuss your progress with you and report to your physician(s). Cardiac Rehab is proven to help reduce readmissions, improve functional capacity and lower recurrence of problems with your heart. Our Cardiac Rehab program is Certified by the [place] [employer] Cardio-Vascular and Pulmonary Rehabilitation (AACVPR) and Accredited by the [place] [employer] through our [facility]. You can contact us at . We invite you to call us with your questions or to get started in our program. If you have other questions or concerns be sure to ask your physician/provider during your follow-up visit. WE look forward to seeing you!
--- NOTE | 2025-10-06 15:01 | CRPH1.INST_ITS ---
General Education Discussed with Patient CAD and cardiac anatomy and function:: Patient communicates acknowledgment, Family communicates acknowledgment and Needs reinforcement Explanation of diagnoses and procedures:: Patient communicates acknowledgment, Family communicates acknowledgment and Needs reinforcement Sign/Symptoms of [place]:: Patient communicates acknowledgment, Family communicates acknowledgment and Needs reinforcement Antiplatelet therapy: Patient communicates acknowledgment, Family communicates acknowledgment and Needs reinforcement Proper use of NTG-SL: Patient communicates acknowledgment, Family communicates a cknowledgment and Needs reinforcement Emergency procedures and activation of EMS: Patient communicates acknowledgment, Family communicates acknowledgment and Needs reinforcement Compliance of all prescribed medications: Patient communicates acknowledgment, Family communicates acknowledgment and Needs reinforcement Smoking Risk Factors Patient Nicotine/Smoking Risk Factors Are:: Cigarettes Recommendations Recommendations Include:: Smoking cessation strategies/Smoking packet, Second- hand smoke recommendation and Participation in a smoking cessation program Response Code Nicotine/Smoking Response Code:: Patient communicates acknowledgment, Family communicates acknowledgment and Needs reinforcement Dyslipidemia Risk Factors Patient Dyslipidemia Risk Factors Are:: Total Cholesterol, Triglycerides, HDL and LDL Recommendations Recommendations Include:: Lipid profile provided, Lipid profile not available and Reviewed NCEP/ATP guidelines Response Code Dyslipidemia Response Code:: Patient communicates acknowledgment, Family communicates acknowledgment and Needs reinforcement Overweight/Obesity Risk Factors Patient Overweight/Obesity Risk Factors Are:: Obesity - > or = 30 Recommendations Recommendations Include:: Weight loss of 5-10%, Reduced calorie diet and Exercise 5-7 times/week Response Code Overweight/Obesity:: Patient communicates acknowledgment, Family communicates acknowledgment and Needs reinforcement Hypertension Recommendations Recommendations Include:: Maintain BP <130/85, Decrease/maintain normal body weight and Moderation of ETOH Response Code Hypertension:: Patient communicates acknowledgment, Family communicates acknowledgment and Needs reinforcement Heart Disease Risk Factors Patient Heart Disease Risk Factors Are:: Previous cardiac event Recommendations Recommendations Include:: Educated family members of their risk and Educated family members of importance of prevention of heart disease Response Code Heart Disease Response Code:: Patient communicates acknowledgment, Family communicates acknowledgment and Needs reinforcement Sedentary Risk Factors Patient Sedentary Risk Factors Are:: Lack of regular exercise Recommendations Recommendations Include:: Aerobic exercise 5-7 times/week for 20-30 minutes continuously, Benefits of regular exercise, Discussed home walking program and Monitored Outpatient Cardiac Rehab Response Code Sedentary Response Code:: Patient communicates acknowledgment, Family communicates acknowledgment and Needs reinforcement
[2025-10-06 16:47] LABS: Vancomycin, Trough Level 27.5 ug/mL (5.0-15.0)
--- NOTE | 2025-10-06 16:56 | PCM.RX.CS ---
Consult Antibiotic Management Pharmacy has been consulted to manage selected antibiotic: Vancomycin Type of Intervention Type of Consult: Follow-up Prior Doses of Antibiotics Prior Doses of Antibiotics Received/Current Regimen: current dose is vanc 1250mg IV q8h Labs Labs: Sodium 139 mmol/L (133-145) 10/06/25 04:10 Potassium 3.4 mmol/L (3.3-5.1) 10/06/25 04:10 Chloride 103 mmol/L (98-108) 10/06/25 04:10 Carbon Dioxide 24.6 mmol/L (21.0-32.0) 10/06/25 04:10 Anion Gap 11 (5-15) 10/06/25 04:10 BUN 18 mg/dL (4-19) 10/06/25 04:10 Creatinine 1.37 mg/dL (0.70-1.20) H 10/06/25 04:10 Est GFR (MDRD) Non-Af 61 (>60) 10/06/25 04:10 BUN/Creatinine Ratio 12.8 RATIO (10-20) 10/06/25 04:10 Glucose 136 mg/dL (70-99) H 10/06/25 04:10 Vancomycin Trough 27.5 ug/mL (5.0-15.0) H 10/06/25 16:17 Microbiology Microbiology: Microbiology 10/05/25 16:35 Nasal Secretion MRSA (PCR) - Final 10/05/25 16:35 Mucosa - Nasopharyngeal Coronavirus COVID-19 PCR - Final 10/05/25 14:25 Mucosa - Nasopharyngeal Respiratory Panel (PCR) - Final 10/05/25 08:50 Sputum, Induced/Lukens Gram Stain - Final Dosing Weight Weight used for dosin.7 kg Estimated Creatinine Clearance Estimated Creatinine Clearance: 76 ml/min Goal Trough Goal Trough: 15-20 mcg/mL Pharmacy Plan for Drug Dosing Pharmacy Plan for Drug Dosing: The vanc trough drawn at 16:17 (approximately 7 hours after the previous dose) was 27.5 mcg/ml. This is above goal range so will discontinue the current dose. Check a random level tomorrow morning to see if dosing can be resumed at that time. Of note, the patient's SCr increased to 1.37 today from 0.94 yesterday. Pharmacy Service will continue to monitor and adjust dosing as required. Follow-Up Labs Follow-Up Labs: Trough: Vancomycin (random) Date/Time Labs Ordered Labs to be done on [date and time ordered]: 10/07/25 06:00
[2025-10-07 02:49] VITALS: BMI 33.8
[2025-10-07 03:55] VITALS: BP 143/80; PULSE 80; RESP 16; TEMP 37.1; O2SAT 95
[2025-10-07 06:42] LABS: Hematocrit 39.0 % (40-54); Hemoglobin 12.9 g/dL (13.0-16.5); Immature Granulocytes Count 0.100 X10^3/uL (0.0-0.0); Mean Corp Hgb Conc 33.1 g/dL (32-36); Mean Corpuscular Volume 87.1 fL (80-94); Mean Platelet Vol. 10.8 fl (6.2-12.0); NRBC Flagged by Analyzer 0 % (0-5); POSITIVE DIFFERENTIAL YES; Platelet Count 204 K/mm3 (150-450); RBC Distribution Width CV 13.7 % (11.6-14.6); RBC Distribution Width SD 42.9 fl (35.1-43.9); Red Blood Count 4.48 M/mm3 (4.6-6.2); White Blood Count 15.3 K/mm3 (4.4-11.0)
[2025-10-07 06:44] LABS: Differential Indicated SCAN CRITERIA MET
--- NOTE | 2025-10-07 06:45 | NURSING ---
spoke to patient and nurse this morning and stated per his standpoint patient can be discharged but has to check in with hospitalist first. Patient does not have an IV anymore due to it going bad, Dr. Flores stated we could wait on 0600 IV ATB due to no IV and if patient is going to be discharged. Passed along to alber Hays nurse.
[2025-10-07 06:53] VITALS: PULSE 70; RESP 18; O2SAT 94
[2025-10-07] MEDS: Ipratropium 0.5 MG/2.5 ML SOLUTION INHALATION (06:53)
--- NOTE | 2025-10-07 06:57 | PN.CARD_ITS ---
Subjective Subjective Patient seen and evaluated. Doing well this morning. No complaints wants to go home. Objective Data Vital Signs: Vital Signs Temp Pulse Resp BP Pulse Ox O2 Del Method O2 Flow Rate 98.7 F 70 18 143/80 H 94 Room Air 6 10/07/25 03:55 10/07/25 06:53 10/07/25 06:53 10/07/25 03:55 10/07/25 06:53 10/07/25 06:53 10/05/25 08:30 FiO2 35 10/06/25 08:00 Oxygen Flow Rate (L/min) 6 Oxygen Delivery Method Room Air Weight: 222 lb 10.67 oz Body Mass Index (BMI) 33.8 Intake & Output: Intake and Output for Last 24 Hours 10/05/25 10/06/25 10/07/25 23:59 23:59 23:59 Intake Total 4276.05 / 4293.15 1312.71 / 1312.71 Output Total 2045 / 2120 925 / 925 Balance 2231.05 / 2173.15 387.71 / 387.71 Lab / Micro Data 10/07/25 06:02 10/06/25 04:10 Labs: Laboratory Results - last 24 hr 10/05/25 08:10: POC Glucose 216 H 10/06/25 16:17: Vancomycin Trough 27.5 H 10/06/25 16:56: POC Glucose 115 H 10/06/25 21:42: POC Glucose 151 H 10/07/25 06:02: WBC 15.3 H, RBC 4.48 L, Hgb 12.9 L, Hct 39.0 L, MCV 87.1, MCH 28.8, MCHC 33.1, RDW Std Deviation 42.9, RDW Coeff of Narcisa 13.7, Plt Count 204, MPV 10.8, Immature Gran % (Auto) 0.700, Neut % (Auto) 72.8 H, Lymph % (Auto) 13.2 L, [place] % (Auto) 12.1 H, Eos % (Auto) 0.9, Baso % (Auto) 0.3, Absolute Neuts (auto) 11.1 H, Absolute Lymphs (auto) 2.01, Nucleated RBC % 0 Cardiology Labs/Tests 10/07/25 06:02: WBC 15.3 H, RBC 4.48 L, Hgb 12.9 L, Hct 39.0 L, MCV 87.1, MCH 28.8, MCHC 33.1, Plt Count 204, MPV 10.8, Immature Gran % (Auto) 0.700, Neut % (Auto) 72.8 H, Lymph % (Auto) 13.2 L, [place] % (Auto) 12.1 H, Eos % (Auto) 0.9, Baso % (Auto) 0.3, Absolute Neuts (auto) 11.1 H, Nucleated RBC % 0 Rhythm: EKG: ECHO: Stress Test: Cardiac Cath: PCI: CT Surgery: Holter monitor: EPS: PPM: CXR: Chest CT Scan: Physical Exam Const oriented x3 Orientation / Consciousness: awake HEENT normocephalic Eyes PERRL Neck full ROM Carotids: normal carotid upstroke Chest inspection of chest normal Resp Resp Narrative: On ventilator. Cardio regular rate, regular rhythm, S1 normal heart sound and S2 normal heart sound GI normal to inspection, nondistended, normoactive bowel sounds, soft to palpation, non-tender and non-distended Extremity normal to inspection and full ROM Neuro Neuro Narrative: No clonus. Withdraws to noxious stimuli. Psych mental status grossly normal Assessment & Plan Assessment/Plan (1) Cardiac arrest with ventricular fibrillation: PLAN: Extensive history of coronary artery disease. He underwent multivessel PCI and currently is doing well. Echocardiogram demonstrates reduced left ventricular ejection fraction. He does have residual diagonal disease. This will be evaluated at a later date. He has been put on amiodarone and will be discharged on the same for outpatient follow-up. (2) Left ventricular systolic dysfunction (LVSD): PLAN: Has a history of left ventricular systolic dysfunction with estimated ejection fraction of 35% and segmental wall motion abnormalities. Will consider an ICD but we will see how her left ventricular function improves over the next few weeks. Recommend continuation of guideline directed medical therapy with beta-israel, MIO inhibitor Continue Lasix (3) Hypertension: PLAN: He does have a history of noncompliance. Medications have been resumed with a beta-israel Reduce MIO inhibitor and resume the above and titrate upwards as appropriate Will continue clonidine Continue carvedilol (4) Dyslipidemia: PLAN: High intensity statins statins. (5) Nicotine dependence: QUALIFIERS: Nicotine product type: cigarettes Substance use status: uncomplicated Qualified Code(s): F17.210 - Nicotine dependence, cigarettes, uncomplicated PLAN: Quit smoking. PLAN: Plan From the cardiovascular standpoint he can be discharged for outpatient follow-up in our office in 2 to 4 weeks with nurse practitioner.
[2025-10-07 07:09] LABS: Anion Gap 11 (5-15); BUN 12 mg/dL (4-19); BUN/Creat Ratio 12.8 RATIO (10-20); Calcium,Total 8.5 mg/dL (7.6-11.0); Carbon Dioxide 24.5 mmol/L (21.0-32.0); Chloride 104 mmol/L (98-108); Estimated Creatinine Clearance 102.40 ml/min (50-250); Glucose 132 mg/dL (70-99); Potassium 3.2 mmol/L (3.3-5.1)
--- NOTE | 2025-10-07 09:16 | CASEMGMT ---
Social Work SW spoke with the patient and his . SW attempted to provided resources for insurance and medical but it was reported this was already provided. SAMY Grant
--- NOTE | 2025-10-07 11:27 | DS.PCM_ITS ---
Providers Date of Admission: 10/05/25 Primary Care Physician: Dr. 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 Patient was on amiodarone drip shortly after the ROSC Amiodarone drip started in the ED. Continue monitoring on telemetry. (2) Left ventricular systolic dysfunction (LVSD): Status: Acute Code(s): I51.89 - Other ill-defined heart diseases (3) Hypertension: Status: Chronic Code(s): I10 - Essential (primary) hypertension (4) Dyslipidemia: Status: Acute Code(s): E78.5 - Hyperlipidemia, unspecified (5) Nicotine dependence: Status: Acute Code(s): F17.200 - Nicotine dependence, unspecified, uncomplicated Qualifiers: Nicotine product type: cigarettes Substance use status: uncomplicated Qualified Code(s): F17.210 - Nicotine dependence, cigarettes, uncomplicated Plan HFrEF: CT findings more consistent with pulm vascular congestion with pleural effusions within the fissures. Ideally like to aggressively diurese him but his pressure may prohibit that at this time particular with him being on propofol. Echo shows an EF 35% w moderate asymmetric septal hypertrophy. Hypertensive urgency: Present on arrival. Patient was on nitroglycerin drip to help with that blood pressure has since improved bigger since he has had propofol. Continue with antihypertensives but hold parameters for systolic less than 100. Diabetes mellitus type 2: Received glargine 50 last night. Sliding scale insulin. A1c 9.5. VTE prophylaxis with enoxaparin DW patient and his family at bedside. Medications at Discharge Home Medications aspirin 81 mg chewable tablet 81 mg PO DAILY heart health 04/27/22 loratadine 10 mg tablet 10 mg PO DAILY PRN allergies 06/26/22 insulin degludec 200 unit/mL (3 mL) subcutaneous pen (Tresiba FlexTouch U-200 insulin) 50 unit (0.25 mL) subcut QHS blood sugar 3 months #22.5 mL 12/28/23 insulin lispro 100 unit/mL subcutaneous pen (Humalog KwikPen (U-100) Insulin) 20 unit subcut TIDAC PRN DIABETES 02/10/25 amiodarone 200 mg tablet 200 mg PO DAILY #90 tabs 10/07/25 atorvastatin 80 mg tablet 80 mg PO QHS cholesterol #90 tabs 10/07/25 carvedilol 25 mg tablet 25 mg PO BIDCM [facility] #180 tabs 10/07/25 clonidine HCl 0.1 mg tablet 0.1 mg PO BID blood pressure #180 tabs 10/07/25 clopidogrel 75 mg tablet (Plavix) 75 mg PO DAILY anti platelet #90 tabs 10/07/25 furosemide 20 mg tablet (Lasix) 60 mg (3 x 20 mg) PO DAILY #270 tabs 10/07/25 lisinopril 10 mg tablet 10 mg PO BID #90 tabs 10/07/25 nitroglycerin 0.4 mg sublingual tablet 0.4 mg sublingual Q5-15M chest pain #25 tabs 10/07/25 Hospital Course Procedures 2-D Echocardiogram and Cardiac catheterization Summary of Care Provided Hospital Course: Greater than 30 minutes spent on discharge. This is a 55-year-old gentleman presents with chest pain. When he came to the hospital then he developed V-fib arrest and was shocked twice. Was intubated for airway protection. Patient to the [facility] where he had 3 stents placed to the circumflex vessel. He did have a non-STEMI. Patient was extubated on the and has done well. Patient will be discharged home in stable condition. Patient continue with beta-christi, MICHAEL inhibitor and statins. Patient to follow-up with cardiology as outpatient. Physical Exam Narrative Comfortable. On room air. Nontoxic. Weight / BMI Weight Weight: 101 kg Body Mass Index (BMI) 33.8 ABG / Lab / Microbiology Data 10/07/25 06:02 10/07/25 06:02 Laboratory: Laboratory Results - last 24 hr 10/06/25 16:17: Vancomycin Trough 27.5 H 10/06/25 16:56: POC Glucose 115 H 10/06/25 21:42: POC Glucose 151 H 10/07/25 06:02: WBC 15.3 H, RBC 4.48 L, Hgb 12.9 L, Hct 39.0 L, MCV 87.1, MCH 28.8, MCHC 33.1, RDW Std Deviation 42.9, RDW Coeff of Narcisa 13.7, Plt Count 204, MPV 10.8, Immature Gran % (Auto) 0.700, Neut % (Auto) 72.8 H, Lymph % (Auto) 13.2 L, Cuming % (Auto) 12.1 H, Eos % (Auto) 0.9, Baso % (Auto) 0.3, Absolute Neuts (auto) 11.1 H, Absolute Lymphs (auto) 2.01, Nucleated RBC % 0, Sodium 140, Potassium 3.2 L, Chloride 104, Carbon Dioxide 24.5, Anion Gap 11, BUN 12, Creatinine 0.95, Estim Creat Clear Calc 102.40, Est GFR (MDRD) Non-Af 96, BUN/Creatinine Ratio 12.8, Glucose 132 H, Calcium 8.5 10/07/25 06:05: POC Glucose 139 H Microbiology: Microbiology 10/05/25 09:01 Urine Catheter - [place] Urine Culture - Final Culture exhibits no growth. 10/05/25 08:50 Sputum, Induced/[place]uk[place] Gram Stain - Final 10/05/25 08:50 Sputum, Induced/[place]ukens Respiratory Culture - Final Mixed normal respiratory katya. No Streptococcus pneumoniae, beta-hemolytic Streptococcus or Staphylococcus aureus isolated. 10/05/25 09:09 Blood Culture (Wb) - Anticubital Left Blood Culture - Preliminary No growth in 48 hours. 10/05/25 08:54 Blood Culture (Wb) - Anticubital Right Blood Culture - Preliminary No growth in 48 hours. 10/05/25 16:35 Nasal Secretion MRSA (PCR) - Final 10/05/25 16:35 Mucosa - Nasopharyngeal Coronavirus COVID-19 PCR - Final 10/05/25 14:25 Mucosa - Nasopharyngeal Respiratory Panel (PCR) - Final D/C Instructions DC O2, CPAP, BIPAP Needs Home O2 Discharge instructions: No Meaningful Use Info Meaningful Use Meaningful Use Diagnoses (Choose all that apply): AMI AMI/Post PCI/Angioplasty Aspirin given w/in 24hrs of arrival?: Yes ASA at discharge?: Yes Statins at discharge?: Yes Michael/ARB at discharge?: Yes Beta Christi at discharge?: Yes Done w/ Acute [place] measure.: Yes Documented LVEF (%): 35 Discharge Plan Admission Admit Date/Time: 10/05/25 14:50 Primary Reason for Your Visit: NSTEMI. Vfib arrest. Attending Provider: Brennon Juarez Primary Care Provider: Sivan Bwoie Consulting Providers: Luis Villeda; Karson Brothers; Shakeel Rios; Ricci King; Anson Ly; Mitchell Triplett; Fidelina Sosa; Prashanth Clark; Lu Zimmerman; Tip Burt; Emily Walker; Farooq Pichardo; Edwar Peace; Suad Bowie; Kan Winter; Jaime Bains; Morgan King; Candida Muller; Karyn Rodriguez; Ana Lilia Reardon; Darshana Antony; Basil Francis; Manuelito Berman; Zenaida Gonzalez; Rhonda Workman; Jeramie Solis; Roel Patel; Zenaida Townsend; Jose Luis Gray; Asael Crouch; Franklin Ennis; Gemma Gallegos; Devon Fang; Pierre Salinas; Laura Haro; Cm Dangelo; Sherita Arana; Lennox Vasquez; Michoacano Brown; Jaycob Galvez; Diego العلي; Eagle Freed; Christiano Sifuentes Discharge Orders/Prescriptions Prescriptions: New lisinopril 10 mg Tablet 10 mg PO BID Qty: 90 0RF amiodarone 200 mg Tablet 200 mg PO DAILY Qty: 90 0RF Continued insulin degludec [Tresiba FlexTouch U-200] 200 unit/mL (3 mL) insulin pen 50 unit SUBCUT QHS 90 Days Qty: 22.5 1RF aspirin 81 MG tablet,chewable 81 mg PO DAILY loratadine 10 mg tablet 10 mg PO DAILY PRN (Reason: allergies) insulin lispro [Humalog KwikPen Insulin] 100 unit/mL Insulin Pen 20 unit subcut TIDAC PRN (Reason: DIABETES) Patient Comments: states pt takes sliding scale prn based on carb consumption and bsl. does not know sliding scale levels off the top of her head atorvastatin 80 mg tablet 80 mg PO QHS Qty: 90 0RF carvedilol 25 mg tablet 25 mg PO BIDCM Qty: 180 0RF clonidine HCl 0.1 mg tablet 0.1 mg PO BID Qty: 180 0RF clopidogrel [Plavix] 75 mg tablet 75 mg PO DAILY Qty: 90 0RF nitroglycerin 0.4 mg tablet, sublingual 0.4 mg sublingual Q5-15M Qty: 25 0RF furosemide [Lasix] 20 mg tablet 60 mg PO DAILY Qty: 270 0RF Discontinued lisinopril 20 mg tablet 20 mg PO BID isosorbide mononitrate 60 mg tablet extended release 24 hr 60 mg PO BID Qty: 180 3RF amlodipine 10 mg tablet 10 mg PO DAILY Qty: 90 3RF Referrals / Follow Up: [facility] [Provider Group] - Within 1 Month Sivan Bowie MD [Primary Care Provider, Internal Medicine] - Within 2 Weeks Disposition Disposition (needs filled in before D/C Order can be placed): Home, Self Care Charges/Coding Visit Charges Inpatient E&M: 36153 Disch Hosp >30min
--- NOTE | 2025-10-07 11:50 | CASEMGMT ---
Patient has order for discharge. RN CM in to discuss needs at discharge, at bedside. RN CM provided Good RX coupons for new medications. Patient denies further needs or help at discharge. Patient had no further questions or concerns.
--- NOTE | 2025-10-07 12:08 | PHA.DC.MC.R ---
Pharmacy [facility] Counseling Pharmacy Service has performed discharge medication reconciliation and counseling for this patient. 1. AMIODARONE 200MG PO DAILY 2. LISINOPRIL DOSE DECREASED TO 10MG 3. STOP AMLODIPINE AND IMDUR The patient's discharge medication list was reviewed for discrepancies and discrepancies were resolved. The patient was counseled on the following discharge medications and changes in medications for homegoing were reviewed. The Reason for Use, instructions for use, and potential side effects were reviewed for all new medications. The patient's questions regarding all of their medications were answered. The patient was able to verbally demonstrate an understanding of their discharge medications. Patient counseled by pharmacy operations coordinatorMonster. Medications at Discharge Home Medications aspirin 81 mg chewable tablet 81 mg PO DAILY heart health 04/27/22 loratadine 10 mg tablet 10 mg PO DAILY PRN allergies 06/26/22 insulin degludec 200 unit/mL (3 mL) subcutaneous pen (Tresiba FlexTouch U-200 insulin) 50 unit (0.25 mL) subcut QHS blood sugar 3 months #22.5 mL 12/28/23 insulin lispro 100 unit/mL subcutaneous pen (Humalog KwikPen (U-100) Insulin) 20 unit subcut TIDAC PRN DIABETES 02/10/25 amiodarone 200 mg tablet 200 mg PO DAILY #90 tabs 10/07/25 atorvastatin 80 mg tablet 80 mg PO QHS cholesterol #90 tabs 10/07/25 carvedilol 25 mg tablet 25 mg PO BIDCM [facility] #180 tabs 10/07/25 clonidine HCl 0.1 mg tablet 0.1 mg PO BID blood pressure #180 tabs 10/07/25 clopidogrel 75 mg tablet (Plavix) 75 mg PO DAILY anti platelet #90 tabs 10/07/25 furosemide 20 mg tablet (Lasix) 60 mg (3 x 20 mg) PO DAILY #270 tabs 10/07/25 lisinopril 10 mg tablet 10 mg PO BID #90 tabs 10/07/25 nitroglycerin 0.4 mg sublingual tablet 0.4 mg sublingual Q5-15M chest pain #25 tabs 10/07/25
== END 2025-10-07 12:06 | disposition home or self-care (01) | DRG 321 ==
LOC: ED 08:28 → ICU 15:09 → PCU 10-06 15:28
PROVIDERS: Internal Medicine Cardiovascular Disease; Internal Medicine Critical Care Medicine; Emergency Provider Surgery; PCP Internal Medicine
DX: I21.4 Non-ST elevation (NSTEMI) myocardial infarction (principal); I49.01 Ventricular fibrillation; I46.2 Cardiac arrest due to underlying cardiac condition; J96.02 Acute respiratory failure with hypercapnia; J96.01 Acute respiratory failure with hypoxia; I50.23 Acute on chronic systolic (congestive) heart failure; E87.21 Acute metabolic acidosis; E11.65 Type 2 diabetes mellitus with hyperglycemia; J44.9 Chronic obstructive pulmonary disease, unspecified; I11.0 Hypertensive heart disease with heart failure; I25.110 Atherosclerotic heart disease of native coronary artery with unstable angina pectoris; I25.5 Ischemic cardiomyopathy; Z79.4 Long term (current) use of insulin; F17.210 Nicotine dependence, cigarettes, uncomplicated; E78.5 Hyperlipidemia, unspecified; I16.0 Hypertensive urgency; Z95.5 Presence of coronary angioplasty implant and graft; Z79.02 Long term (current) use of antithrombotics/antiplatelets; Z79.82 Long term (current) use of aspirin; Z79.899 Other long term (current) drug therapy
CPT/HCPCS: 31500; 31720; 36415; 36600; 51702; 70450; 71045; 71275; 80048; 80053; 80061; 80202; 81001; 82550; 82803; 82962; 83036; 83605; 83735; 83880; 84443; 84478; 84484; 85025; 85027; 85347; 85610; 85730; 87040; 87070; 87086; 87205; 87633; 87635; 87641; 92921; 92928; 92950; 93005; 93306; 93454; 94002; 94003; 94640; 94660; 94668; 99285; 99406; C1874; C1887; Q9967; A4216; C1725; C1769; C1894; C9600; J1938; J2405